=== PATIENT | female | born 1960 | race Caucasian/White ===

== ENCOUNTER 2024-04-18 14:09 | Outpatient (OUT) | payer MEDICARE, MEDICAID, SELFPAY ==
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
== END 2024-04-18 14:10 | disposition home or self-care (01) ==
PROVIDERS: Visit Provider Nurse Practitioner
DX: M47.812 Spondylosis without myelopathy or radiculopathy, cervical region (principal); M47.814 Spondylosis without myelopathy or radiculopathy, thoracic region; M54.12 Radiculopathy, cervical region
CPT/HCPCS: 72050; 72070; G0463

== ENCOUNTER 2024-04-18 15:14 | Outpatient (OUT) | payer MEDICARE, MEDICAID, SELFPAY ==
--- NOTE | 2024-04-18 15:32 | XR_ITS ---
[facility] [place] [id number] Patient Name: MARILIA ABRAHAM MRN: [id number] date: 1960 Sex: F Assigned Patient Location: [facility] Current Patient Location: [facility] Accession/Order Number: [id number] Exam Date: 04/18/2024 23:09 Report Date: 04/18/2024 23:11 At the request of: INGE SOTO NP Procedure: XR cervical spine 5V THORACIC SPINE - - 3 views, cervical spine 5 views CLINICAL HISTORY: CERVICAL AND THORACIC SPONDYLOSIS COMPARISON: None FINDINGS: Thoracic spine: Vertebral body heights appear maintained. Scattered endplate degenerative changes. Pedicles appear intact. Cervical spine: No fracture. Vertebral body heights appear maintained. No significant disc space narrowing. Facet joint degenerative changes. No prevertebral soft tissue swelling. XR/XR cervical spine 5V IMPRESSION: THORACIC SPINE DEMONSTRATES DEGENERATIVE CHANGES WITHOUT ACUTE BONY PROCESS. CERVICAL SPINE DEMONSTRATES PROMINENT FACET JOINT DEGENERATIVE CHANGES WITHOUT SIGNIFICANT DISC LOSS. Impression dictated by: Ortega Rosales Jr., D.O.04/18/2024 11:11 PM Dictation Location: [place] [address] Electronically authenticated by: [id number] Y Date: 04/18/2024 23:11
--- NOTE | 2024-04-18 15:32 | XR_ITS ---
[facility] [place] [id number] Patient Name: MARILIA ABRAHAM MRN: [id number] date: 1960 Sex: F Assigned Patient Location: [facility] Current Patient Location: [facility] Accession/Order Number: [id number] Exam Date: 04/18/2024 23:09 Report Date: 04/18/2024 23:11 At the request of: INGE SOTO NP Procedure: XR cervical spine 5V THORACIC SPINE - - 3 views, cervical spine 5 views CLINICAL HISTORY: CERVICAL AND THORACIC SPONDYLOSIS COMPARISON: None FINDINGS: Thoracic spine: Vertebral body heights appear maintained. Scattered endplate degenerative changes. Pedicles appear intact. Cervical spine: No fracture. Vertebral body heights appear maintained. No significant disc space narrowing. Facet joint degenerative changes. No prevertebral soft tissue swelling. XR/XR thoracic spine 2V IMPRESSION: THORACIC SPINE DEMONSTRATES DEGENERATIVE CHANGES WITHOUT ACUTE BONY PROCESS. CERVICAL SPINE DEMONSTRATES PROMINENT FACET JOINT DEGENERATIVE CHANGES WITHOUT SIGNIFICANT DISC LOSS. Impression dictated by: Ortega Rosales Jr., D.O.04/18/2024 11:11 PM Dictation Location: [place] [address] Electronically authenticated by: [id number] Y Date: 04/18/2024 23:11
== END 2024-04-18 15:15 | disposition home or self-care (01) ==
LOC: RAD 15:16
PROVIDERS: Visit Provider Nurse Practitioner
DX: M47.812 Spondylosis without myelopathy or radiculopathy, cervical region (principal); M47.814 Spondylosis without myelopathy or radiculopathy, thoracic region
CPT/HCPCS: 72050; 72070

== ENCOUNTER 2024-04-26 12:52 | Outpatient (OUT) | payer MEDICARE, MEDICAID, SELFPAY ==
--- NOTE | 2024-04-26 12:54 | MR_ITS ---
[address] [address] Patient Name: MARILIA ABRAHAM MRN: [id number] date: 1960 Sex: F Assigned Patient Location: MRI Current Patient Location: MRI Accession/Order Number: [id number] Exam Date: 04/26/2024 15:46 Report Date: 04/26/2024 15:57 At the request of: INGE SOTO NP Procedure: MR cervical spine wo con MRI Cervical Spine without contrast TECHNIQUE: Multiplanar T1 and T2-weighted imaging of the cervical spine obtained. HISTORY: Chronic cervical neck pain. Minimal radiculopathy. Pain and 20+ years. No injury. COMPARISON: plain film 04/18/2024 BONY ALIGNMENT: Adequate BONY LESION: None CERVICAL CORD: No significant demyelination. SKULL BASE: unremarkable. PREVERTEBRAL SOFT TISSUES: Unremarkable NASOPHARYNGEAL REGION: unremarkable. VERTEBRAL ARTERIES: unremarkable. POSTSURGICAL CHANGES: None CERVICAL SOFT TISSUES: Unremarkable C1-2 LEVEL: Unremarkable C2-3: Unremarkable C3-4: Mild anterolisthesis. Mild spondylosis. Patent central canal and neural foramen C4-5: Mild spondylosis. Diffuse disc bulge. Patent central canal. Mild bilateral neural foraminal narrowing. C5-6: Mild spondylosis. Diffuse disc bulge. Patent central canal. Mild bilateral neural foraminal narrowing. C6-7: Mild spondylosis. Diffuse disc bulge. Patent central canal and neural foramen. C7-T1: Mild spondylosis. No disc herniation. Patent central canal. Mild left neural foraminal narrowing. Left facet degeneration with bone marrow edema and soft tissue edema. Patent right neural foramen MR/MR cervical spine wo con IMPRESSION: Mild multilevel discovertebral degenerative changes. Patent central canal. Left C7-T1 facet disease. Reactive bone marrow edema soft tissues edema. Impression dictated by: Tariq Gonzalez M.D.04/26/2024 3:57 PM Dictation Location: [place] Electronically authenticated by: [id number] Y Date: 04/26/2024 15:57
== END 2024-04-26 12:53 | disposition home or self-care (01) ==
LOC: MRI 12:52
PROVIDERS: Visit Provider Nurse Practitioner
DX: M54.12 Radiculopathy, cervical region (principal); M47.812 Spondylosis without myelopathy or radiculopathy, cervical region; M50.30 Other cervical disc degeneration, unspecified cervical region
CPT/HCPCS: 72141

== ENCOUNTER 2024-07-01 14:43 | Outpatient (OUT) | payer MEDICARE, MEDICAID, SELFPAY ==
--- NOTE | 2024-07-01 15:46 | PM.CN ---
Consult Note: HPI Data of Consult Patient: known to practice within the last 3 years Consult date: 07/01/24 Requesting Physician: Alexander Mayers MD Primary Care Provider: Non-Staff Physician, Consult Narrative Reason for consult: neck pain Narrative: 63yof who presents for assessment. persistence of pain in neck, bilateral shoulder area. 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 previously has cervical rfa, with good benefit of >50% for >3 months. last done about 10 years ago. continues in a series of provider directed home exercises >6 weeks, without lasting benefit. used gabapentin, which provided some benefit. cc:: CC: Alexander Mayers MD Review of Systems ROS Status of ROS 10 or more systems reviewed and unremarkable except as noted in history and below Meds Home Medications and Allergies Home Medications ?Medication ?Instructions ?Recorded ?Confirmed ?Type cyclobenzaprine 10 mg tablet 10 mg PO .HS 04/18/24 04/18/24 History ibuprofen 600 mg tablet (IBU) 600 mg PO TID PRN pain 04/18/24 04/18/24 History Allergies Allergy/AdvReac Type Severity Reaction Status Date / Time Sulfa (Sulfonamide Allergy Mild Unknown Verified 04/18/24 15:40 Antibiotics) Exam Narrative Exam Narrative: Psych-alert and oriented x 3.? Attentive and appropriate, constitutionally normal, displays normal mood and affect per situation.? There are no obvious deficits in memory, reasoning, or intellect.? Skin-no obvious rashes, bruising, or erythema noted to the patient's area of pain. Extremities-upper extremities are warm with minimal edema and palpable pulses. Cervical- tenderness to palpation noted in the cervical spine and paraspinal musculature.? Pain is elicited with extension, and lateral rotation of the cervical spine.? Range of motion is slightly diminished due to pain. Facet loading maneuvers are positive bilaterally.? Coordination remains intact.? Gait remains non-antalgic. Assessment and Plan Assessment and Plan (1) Cervical spondylosis: Plan 63yof who presents for assessment. failed conservative measures, as noted. imaging reviewed, as noted. given symptoms and imaging, prudent to attempt diagnostic bilateral c5-6, 6-7 medial branch blocks with intention of proceeding to radiofrequency ablation. she is in agreement. meds reviewed, will trial gabapentin 400mg qid. follow up after procedure.
== END 2024-07-01 14:44 | disposition home or self-care (01) ==
PROVIDERS: Visit Provider Anesthesiology
DX: M47.812 Spondylosis without myelopathy or radiculopathy, cervical region (principal)
CPT/HCPCS: G0463

== ENCOUNTER 2024-07-15 11:48 | Day surgery (SDC) | payer MEDICARE, MEDICAID, SELFPAY ==
--- OUTSIDE RECORDS SUMMARY | 2024-05-27 09:45 | XMS_ITS ---
Author Organization [facility] vices Address [address] [place], [place] [id number] Care Team Providers Care Sign Board Erector Name Role Phone Mere Monteiro Primary Care Provider [phone] REASON FOR VISIT NC d/c 05/23 [place] - Heart Attack Social History Sex Assigned At : Social History Observation Description Sex Assigned At Female Encounters Encounter Location Date Provider Diagnosis Main [address] [place] [id number] 05/27/2024 Mere Monteiro Plan Of Treatment Next Appt Details Provider Name:Mere Monteiro, 08/05/2024 02:00:00 PM, [address] [place], [place], [id number], Provider Name:Mere Monteiro, 12/26/2024 02:30:00 PM, [address] [place], [place], [id number], Progress Notes * Alie AJ LDOB: 1960 (63 yo F)Acc No.[id number]:05/27/2024 Medical Note Patient: Shira Alie KURTZ Provider: Danny Monteiro MD :1960 A ge:63 Y S ex:Female Date:05/27/2024 Address:[address] [place] [address], [address], [place], [id number] Subjective: * Chief Complaints: * 1 . [place] d/c 05/23 [place] - Heart Attack. * Medical History: Objective: * Vitals: Assessment: Plan: * Treatment: * Billing Information: * Visit Code: * Procedure Codes: * Electronic signature of Pema Monteiro MD on 07/15/2024 at 11:51 AM EDT Sign off status: Pending * Provider: Danny Monteiro MD Date: 0 05/27/2024 Generated for Ivy lam/Trae/Moreitting on: 0 07/15/2024 11:51 AM EDT
--- OUTSIDE RECORDS SUMMARY | 2024-07-15 11:51 | XMS_ITS | Encounter Summary ---
Author Organization [employer] Address [id number] [address] [place] [address] Care Team Providers Care Technical Solutions Engineer Name Role Phone Services, [facility] Primary Care Provider Reason for Visit * Reason Comments Med Refill Encounter Details Date Type Department Care Team ([facility] Contact Info) Description 07/15/2021 Refill [facility] [address] [place] [address] Igor Holliday MD [address] [facility]. Provider retired 05/14/24 [place], [place] [id number] Social History Tobacco Use Types Packs/Day Years Used Date Smoking Tobacco: Every Day Cigarettes Smokeless Tobacco: Never Alcohol Use Standard Drinks/Week Comments Not Currently 0 (1 standard drink = 0.6 oz pur e alcohol) AUDIT-C Answer Date Recorded Frequency of Alcohol Consumption Never 11/21/2017 Average Number of Drinks Not on file 018 Frequency of Binge Drinking Not on file 10/2017 PHQ-2 Answer Date Recorded Total Score 3 11/03/2020 Childcare Answer Date Recorded Childcare Unknown 07/20/2018 Employment Answer Date Recorded Employment Unknown 07/20/2018 Purpose - Life Answer Date Recorded Purpose and direction in life Unknown Comments No Sex and Gender Information Value Date Recorded Sex Assigned at Not on file Legal Sex Female 9:44 PM EDT Gender Identity Not on file Sexual Orientation Not on file COVID-19 Exposure Response Date Recorded In the last 10 days, have yo u been in contact with someone who was confirmed or suspected to have Coronavirus/COVID-19? No / Unsure 07/05/2021 8:03 PM EDT documented as of this encounter Plan of Treatment Upcoming Encounters Date Type Department Care Team (Late st Contact Info) Description 10/07/2024 3:15 PM EDT Office Visit [facility] [address] [place] [address] Julianna Hdez MD [address] [place] [address] documented as of this encounter Visit Diagnoses Not on filedocumented in this encounter Additional Health Concerns Assessment Noted Time PHQ-9 Depression Total Score: 3 11/04/19 21 2:00 PM EDT A Body Mass Index follow-up plan has been documented for the patient 06/18/2020 4:09 PM EDT documented as of this encounter Care Teams Technical Solutions Engineer Relationship Specialty Start Date End Date Services, [facility] [address] [place], [place] PCP - General Family Medicine 05/07/24 documented as of this encounter
--- OUTSIDE RECORDS SUMMARY | 2024-07-15 11:51 | XMS_ITS | Encounter Summary ---
Author Organization [employer] Address [id number] [address] [place] [address] Care Team Providers Care Parts Professional Name Role Phone Services, [facility] Primary Care Provider Reason for Visit * Reason Comments Med Refill Encounter Details Date Type Department Care Team ([facility] Contact Info) Description 09/12/2021 Refill [facility] [address] [place] [address] Igor Holliday MD [address]. Provider retired 05/14/24 [place], [place] [id number] Social History Tobacco Use Types Packs/Day Years [...] on file Sexual Orientation Not on file documented as of this encounter Plan of Treatment Upcoming Encounters Date Type Department Care Team ([facility] Contact Info) Description 10/07/2024 3:15 PM EDT Office Visit [facility] [address] [place] [address] Julianna Hdez MD [address] [place] [address] documented as of this encounter Visit Diagnoses Not on filedocumented in this encounter Additional Health Concerns Assessment Noted Time PHQ-9 Depression Total Score: 3 11/04/19 21 2:00 PM EDT A Body Mass Index follow-up plan has been documented for the patient 06/18/2020 4:09 PM EDT documented as of this encounter Care Teams Parts Professional Relationship Specialty Start Date End Date Services, [facility] [address] [place], [place] PCP - General Family Medicine 05/07/24 documented as of this encounter
--- OUTSIDE RECORDS SUMMARY | 2024-07-15 11:51 | XMS_ITS | Encounter Summary ---
Author Organization [email or web address] Address [id number] [address] [place] [address] Care Team Providers Care Metal Fitters And Machinists Name Role Phone Services, [facility] Primary Care Provider Encounter Details Date Type Department Care Team ([facility] Contact Info) Description 03/04/2021 Orders Only [facility] [address] [place] [address] Beatriz Ash, PETROGRAPHY TEACHER-OPERATIONS INTELLIGENCE [address] [place], [place] [id number] Social History Tobacco Use Types Packs/Day Years [...] Exposure Response Date Recorded In the last month, have you been in contact with someone who was confirmed or suspected to have Coronavirus / COVID-19? No / Unsure 02/23/2021 1:53 PM EST documented as of this encounter Plan of Treatment Upcoming Encounters Date Type Department Care Team (Late st Contact Info) Description 10/07/2024 3:15 PM EDT Office Visit [facility] [address] [place] [address] Julianna Hdez MD [address] [place] [address] documented as of this encounter Visit Diagnoses Not on filedocumented in this encounter Additional Health Concerns Assessment Noted Time PHQ-9 Depression Total Score: 3 11/04/19 21 2:00 PM EDT A Body Mass Index follow-up plan has been documented for the patient 06/18/2020 4:09 PM EDT documented as of this encounter Care Teams Metal Fitters And Machinists Relationship Specialty Start Date End Date Services, [facility] [address] [place], [place] PCP - General Family Medicine 05/07/24 documented as of this encounter
--- OUTSIDE RECORDS SUMMARY | 2024-07-15 11:51 | XMS_ITS | Encounter Summary ---
Author Organization [employer] [facility] tem Address [id number] [address] [place] [address] Care Team Providers Care Holistic Pulser Name Role Phone Services, [facility] Primary Care Provider Reason for Visit * Reason Comments Med Refill Encounter Details Date Type Department Care Team ([facility] st Contact Info) Description 10/16/2021 Refill [facility] [address] [place] [address] Mao San PA [address] [place], [place] [id number] Spondylosis of cervical region without myelopathy or radiculopathy Social History Tobacco Use Types Packs/Day Years [...] or suspected to have Coronavirus / COVID-19? Unable to assess 10/06/2021 11:51 AM EDT documented as of this encounter Miscellaneous Notes * Telephone Encounter - Naida Bahena RN - 10/16/2021 5:03 AM EDT Our clinic does not accept pharmacy refill requests. The patient must contact our office. [phone] * Telephone Encounter - Terra Rodriguez RN - 10/16/2021 5:03 AM EDT Patient left message yesterday regarding prescription. Call returned to patient to clarify. Patientstates she would like refill of Gabapentin and she would like it sent to [facility]. Upon review of chart patient, order for Gabapentin was signed on 11/11/2021. Per [facility] patient last filled 09/16/2021. Call placed to [facility] to see if there was an issue with the previously e-scribed order. Comb Setter spoke with Dionic[employer] ([facility]) he confirms patient's last fill was 09/16/2021. Dionicio runs script throughinsurance to see if there was an insurance issue. He confirms that there is no issue and apologizesfor the delay. He states that he will prepare script for patient to production supervisor today. Call placed to patient to inform her of conversation with [facility]. She verbalized understanding. documented in this encounter Plan of Treatment Upcoming Encounters Date Type Department Care Team (Late st Contact Info) Description 10/07/2024 3:15 PM EDT Office Visit [facility] [address] [place] [id number] Julianna Hdez MD [address] [place] [address] documented as of this encounter Visit Diagnoses Diagnosis Spondylosis of cervical region without myelopathy or radiculopathy documented in this encounter Additional Health Concerns Assessment Noted Time PHQ-9 Depression Total Score: 3 09/21/20 21 2:00 PM EDT A Body Mass Index follow-up plan has been documented for the patient 06/18/2020 4:09 PM EDT documented as of this encounter Care Teams Holistic Pulser Relationship Specialty Start Date End Date Services, [facility] [address] [place], [place] PCP - General Family Medicine 05/07/24 documented as of this encounter
--- OUTSIDE RECORDS SUMMARY | 2024-07-15 11:51 | XMS_ITS | Encounter Summary ---
Author Organization [employer] tem Address [facility] [id number] [address] [place] [address] Care Team Providers Care Counter Clerk [employer] Name Role Phone Services, [facility] Primary Care Provider Reason for Visit * Reason Comments Med Refill Encounter Details Date Type Department Care Team ([facility] Contact Info) Description 09/09/2020 Refill [facility] [address] [place] [address] Igor Holliday MD [address] Provider retired 05/14/24 [place], [place] [id number] Social History Tobacco Use Types Packs/Day Years [...] 10/2017 PHQ-2 Answer Date Recorded Total Score 0 06/18/2020 Childcare Answer Date Recorded Childcare Unknown 07/20/2018 [...] Upcoming Encounters Date Type Department Care Team ([facility] Contact Info) Description 10/07/2024 3:15 PM EDT Office Visit [facility] [address] [place] [address] Julianna Hdez MD [address] [place] [address] documented as of this encounter Visit Diagnoses Not on filedocumented in this encounter Additional Health Concerns Assessment Noted Time PHQ-9 Depression Total Score: 0 06/19/19 21 3:00 PM EDT A Body Mass Index follow-up plan has been documented for the patient 06/18/2020 4:09 PM EDT documented as of this encounter Care Teams Counter Clerk [employer] Relationship Specialty Start Date End Date Services, [facility] [address] [place], [place] PCP - General Family Medicine 05/07/24 documented as of this encounter
--- OUTSIDE RECORDS SUMMARY | 2024-07-15 11:51 | XMS_ITS | Encounter Summary ---
Author Organization [employer] Address [facility] [id number] [address] 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 [address] [place], [place] [phone] Social History Tobacco Use Types Packs/Day Years Used Date Smoking Tobacco: Every Day Cigarettes Smokeless Tobacco: Never Alcohol Use Standard Drinks/Week Comments Not Currently 0 (1 standard drink = 0.6 oz pur e alcohol) AUDIT-C Answer Date Recorded Frequency of Alcohol Consumption Never 11/21/2017 Average Number of Drinks Not on file 018 Frequency of Binge Drinking Not on file 1010/2017 PHQ-2 Answer Date Recorded Total Score 3 [...] [address] [place] [phone] Julianna Hdez MD [address] [place] [address] documented as of this encounter Visit Diagnoses Not on filedocumented in this encounter Additional Health Concerns Assessment Noted Time PHQ-9 Depression Total Score: 3 11/04/19 21 2:00 PM EDT A Body Mass Index follow-up plan has been documented for the patient 06/18/2020 4:09 PM EDT documented as of this encounter Care Teams Power Electronics Engineer Relationship Specialty Start Date End Date Services, [facility] [address] [place] PCP - General Family Medicine 05/07/24 documented as of this encounter
--- OUTSIDE RECORDS SUMMARY | 2024-07-15 11:51 | XMS_ITS | Clinical Summary ---
Author Organization H.[facility]OOM[facility] tem Address [id number] [address] [place] [address] Care Team Providers Care Technical Instructor Name Role Phone Services, [facility] Primary Care Provider Allergies Active Allergy Reactions Criticality Noted Date Comments Sulfa (Sulfonamide Antibiotics) Itching,Rash Medium Medications gabapentin (NEURONTIN) 300 mg capsule Take 1 capsule (300 mg total) by mouth in the morning and 1 capsule (300 mg total) at noon and 1 capsule (300 mg total) in the evening and 1 capsule (300 mg total) before bedtime. Active busPIRone (BUSPAR) 10 mg tablet Take 1 tablet (10 mg total) by mouth in the morning and 1 tablet (10 mg total) before bedtime. 05/19/19 25 Active DULoxetine (CYMBALTA) 60 mg capsule Take 1 capsule (60 mg total) by mouth in the morning. 05/19/19 25 Active folic acid (FOLVITE) 1 mg tablet Take 1 tablet (1 mg total) by mouth in the morning. 05/19/19 25 Active sennosides-docu sate sodium (SENOKOT-S) 8.6-50 mg Take 2 tablets by mouth 2 (two) times a day as needed for constipation. 05/19/19 25 Active thiamine HCl (VITAMIN B-1) 100 mg tablet Take 1 tablet (100 mg total) by mouth in the morning. 05/19/19 25 Active prasugreL HCl (EFFIENT) 10 mg tablet Take 1 tablet (10 mg total) by mouth in the morning. 90 tablet 3 06/18/19 25 Active aspirin 81 mg chewable tablet Chew 1 tablet (81 mg total) and swallow in the morning for 360 days. 90 tablet 3 06/18/19 25 026 Active atorvastatin (LIPITOR) 80 mg tablet Take 1 tablet (80 mg total) by mouth nightly. 90 tablet 3 06/18/19 Active dapagliflozin propanediol (FARXIGA) 10 mg tablet Take 1 tablet (10 mg total) by mouth in the morning for 360 days. 90 tablet 3 06/18/19 25 026 Active spironolactone (ALDACTONE) 25 mg tablet Take 1 tablet (25 mg total) by mouth in the morning. 90 tablet 3 06/18/19 25 Active valsartan (DIOVAN) 40 mg tablet Take 1 tablet (40 mg total) by mouth in the morning and 1 tablet (40 mg total) before bedtime. 90 tablet 3 06/18/19 25 Active metoprolol succinate XL (TOPROL XL) 25 mg 24 hr tabletIndicatio ns:Chronic systolic heart failure (CMS-HCC) Take 0.5 tablets (12.5 mg total) by mouth in the morning. 45 tablet 3 06/18/19 Active nicotine polacrilex (NICORETTE) 4 MG gumIndications: Continuous tobacco abuse Chew 1 each (4 mg total) as directed as needed for smoking cessation. As recommended on Nicorette gum label, weeks 1-6 1 piece every 1-2 hours, week 7-9 1 piece every 2-4 hours, weeks 10-12 1 piece every 4-8 hours. Do not use nicotine gum simultaneously with other tobacco product 100 each 3 06/18/19 Active atorvastatin (LIPITOR) 80 mg tablet Take 1 tablet (80 mg total) by mouth nightly. 05/19/19 025 Discontin ued(Reord er) aspirin 81 mg chewable tablet Chew 1 tablet (81 mg total) and swallow in the morning for 90 days. 05/19/19 025 Discontin ued(Reord er) dapagliflozin propanediol (FARXIGA) 10 mg tablet Take 1 tablet (10 mg total) by mouth in the morning for 90 days. 05/19/19 025 Discontin ued(Reord er) metoprolol succinate XL (TOPROL XL) 25 mg 24 hr tablet Take 0.5 tablets (12.5 mg total) by mouth in the morning. 05/19/19 25 025 Discontin ued(Reord er) prasugreL HCl (EFFIENT) 10 mg tablet Take 1 tablet (10 mg total) by mouth in the morning. 05/19/19 25 025 Discontin ued(Reord er) valsartan (DIOVAN) 40 mg tablet Take 1 tablet (40 mg total) by mouth in the morning and 1 tablet (40 mg total) before bedtime. 05/19/19 25 025 Discontin ued(Reord er) spironolactone (ALDACTONE) 25 mg tablet Take 1 tablet (25 mg total) by mouth in the morning. 05/19/19 025 Discontin ued(Reord er) benzonatate (TESSALON PERLES) 100 mg capsule Take 1 capsule (100 mg total) by mouth 3 (three) times a day as needed for cough. 05/19/19 025 Discontin ued(Thera py completed ) Active Problems Problem Noted Date Diagnosed Date Chronic systolic heart failure 06/17/2024 Mixed hyperlipidemia 05/11/2024 CHB (complete heart block) 05/07/2024 ST elevation myocardial infarction (STEMI) 05/07 Coronary artery disease invo lving [place] coronary artery of [place] heart 05/07/2024 Osteoarthritis of cervical spine 03/14/2018 Overview (03/14/2018): Added automatically from request for surgery [id number] Cervical spondylosis without myelopathy 11/04/19 18 HTN (hypertension) Encounters Date Type Department Care Team Description 06/17/2024 3:00 PM EDT Ancillary Procedure [facility] [address] [place] [phone] Teagan Carrillo PA-C Complete heart block ([facility]) 06/17/2024 2:00 PM EDT Office Visit [facility] [address] [place] [phone] Teagan Carrillo PA-C Coronary artery disease involving [place] coronary artery of [place] heart without angina pectoris (Primary Dx); Hypertension, unspecified type; Mixed hyperlipidemia; Chronic systolic heart failure (CMS-HCC); Complete heart block (CMS-HCC); Continuous tobacco abuse 06/17/2024 Telephone [facility] [address] [place] [address] Monica Sharif, RN Life Vest issue 06/17/2024 Travel 06/14/2024 Telephone [facility] [address] [place] [address] Juana Eden, [facility] 05/30/2024 Abstract [facility] [address] [place] [phone] External, Scanning Provider 05/21/2024 Telephone [facility], A Department of [facility] [address] [place] [phone] Kristen Lainez New Patient 05/09/2024 3:38 PM EDT - 05/09/2024 4:38 PM EDT Surgery [facility] - Cardiac Cath [address] [place] [address] Gilberto Zepeda MD Percutaneous coronary intervention of 05/08/2024 Telephone [facility] [address] [place] [phone] Gilberto Zepeda MD s/p CATH/PCI 05/07/2024 5:00 PM EDT - 05/07/2024 6:00 PM EDT Surgery [facility] - Cardiac Cath [address] [place] [address] Gilberto Zepeda MD Percutaneous coronary intervention 05/07/2024 3:54 PM EDT - 05/18/2024 7:38 PM EDT Hospital Encounter [facility] - [facility] [address] Acute [address] [place] [address] Maya Zavala MD Oostra, MD Grayson Alvarez, MD Maria Del Rosario Miranda Venu Gopala R, MD Pillai, Viviana M, MD ST elevation myocardial infarction involving left anterior descending (LAD) coronary artery ([facility]) (Primary Dx); ST elevation myocardial infarction (STEMI), unspecified artery (CMS-HCC); CHB (complete heart block) ([facility]); Coronary artery disease involving [place] coronary artery of [place] heart, unspecified whether angina present; Altered mental status, unspecified altered mental status type Discharge Disposition: Detention Facility-Medicare [facility] 05/07/2024 1:45 PM EDT - 05/07/2024 3:27 PM EDT Emergency [facility] - Emergency [address] [place] [phone] Gretchen Fraser MD Complete heart block ([facility]) (Primary Dx); Syncope, unspecified syncope type; Fall, initial encounter Discharge Disposition: [facility] 05/07/2024 Telephone [facility] [address] [place] [address] Shaniqua Montoya Order clarification 05/07/2024 Travel from Last 3 Months Immunizations Immunization Administration Dates Next Due Tdap 02/03/2020 Family History Medical History Relation Name Comments Heart disease Father Heart disease Mother Heart disease Son Relation Name Status Comments Father Mother Alive Son Social History Tobacco Use Types Packs/Day Years Used Date Smoking Tobacco: Every Day Cigarettes Smokeless Tobacco: Never Comments:Patient states she drinks a lot. Alcohol Use Standard Drinks/Week Comments Yes 0 (1 standard drink = 0.6 oz pur e alcohol) [facility] Utilities Answer Date Recorded In the past 12 months has Setup, oil, or water Vyykn threatened to shut off services in your home? Patient unable to answer 05/08/2024 AUDIT-C Answer Date Recorded Frequency of Alcohol Consumption Never 11/21/2017 Average Number of Drinks Not on file 018 Frequency of Binge Drinking Not on file 10/2017 PHQ-2 Answer Date Recorded Total Score 3 11/11/2021 PRAPARE - Transportation Answer Date Re corded In the past 12 months, has l ack of transportation kept you from medical appointments or from getting medications? Patient unable to answer 05/08/2024 In the past 12 months, has l ack of transportation kept you from meetings, work, or from getting things needed for daily living? Patient unable to answer 05/08/2024 Housing Instability Answer Date Recorde d Are you worried or concerned that in the next two months you may not have stable housing that you own, rent or stay in as a part of a household? Patient unable to answer 05/08/2024 Childcare Answer Date Recorded Childcare Unknown 07/20/2018 Employment Answer Date Recorded Employment Unknown 07/20/2018 Hunger Screening Answer Date Recorded Within the past 12 months we worried whether our food would run out before we got money to buy more. Never True 06/17/2024 Within the past 12 months th e food we bought just didn't last and we didn't have money to get more. Never True 06/17/2024 Purpose - Life Answer Date Recorded Purpose and direction in life Unknown Comments No Sex and Gender Information Value Date Recorded Sex Assigned at Not on file Legal Sex Female 9:44 PM EDT Gender Identity Not on file Sexual Orientation Not on file Last Filed Vital Signs Vital Sign Reading Time Taken Comments Blood Pressure 92/50 06/17/2024 2:00 PM EDT Pulse 80 06/17/2024 2:00 PM EDT Temperature 36.7 C (98 F) 05/18/2024 11:30 AM EDT Respiratory Rate 16 05/18/2024 11:30 AM EDT Oxygen Saturation 97% 05/18/2024 11:30 AM EDT Inhaled Oxygen Concentration - - Weight 46.7 kg (103 lb) 06/17/2024 2:00 PM EDT Height 152.4 cm (5') 06/17/2024 2:00 PM EDT Body Mass Index 20.12 06/17/2024 2:00 PM EDT Plan of Treatment Upcoming Encounters Date Type Department Care Team (Late st Contact Info) Description 10/07/2024 3:15 PM EDT Office Visit [facility] [address] [place] [address] Julianna Hdez MD [address] [place] [address] Health Maintenance Due Date Last Done Comments Tobacco Counseling 1962 Pap Smear 09/24/1983 Mammogram 2002 Zoster (Shingles) Vaccine (1 of 2) 2012 Depression Screening 11/11/2022 11/11/2021 Influenza Vaccine 10/14/2024 Tobacco Screening 05/07/2025 05/07/2024 Adult BMI Screening 06/17/2025 06/17/2024 DTaP,Tdap and Td Vaccines (2 - Td or Tdap) 02/02/2030 02/03/2020 Goals Goal Patient Goal Type Associated Problems Recent Progress Patient-Stated? Author <enter goal here> General Yes Viji Pham, RN Note: Evaluation of progress towards goal: Patient plans for a safe discharge. Medical Devices Implanted Type Area Aerospace Stress Engineer Device Identifier Shelf Expiration Date Model / Serial / Lot System Cor Stnt 2.75mm X 48mm 144cm Synergy Xd Mnrl Sean Pltn - [id number] Implanted:Qty : 1 on 05/07/2024 by Gilberto Zepeda MD at [facility] Stent N/A: Arterial [employer] [id number] 09/25/2025 [id number] / / [id number] System Cor Stnt 2.25mm X 15mm 145cm Xience Skypnt Mtlnk Sean - [id number] Implanted:Qty : 1 on 05/09/2024 by Gilberto Zepeda MD at [facility] Stent N/A: Arterial KINNEY [id number] 02/26/2026 [id number] / / [id number] Procedures Procedure Name Priority Date/Time Associated Diagnosis Comments IONIZED CALCIUM Routine 05/18/2024 5:19 AM EDT PHOSPHORUS Routine 05/18/2024 5:19 AM EDT MAGNESIUM Routine 05/18/2024 5:19 AM EDT BASIC METABOLIC PANEL Routine 05/18/2024 5:19 AM EDT IONIZED CALCIUM Routine 05/17/2024 3:45 AM EDT PHOSPHORUS Routine 05/17/2024 3:45 AM EDT MAGNESIUM Routine 05/17/2024 3:45 AM EDT COMPREHENSIVE METABOLIC PANEL Routine 05/17/2024 3:45 AM EDT CBC (NO DIFF) Routine 05/17/2024 3:45 AM EDT IONIZED CALCIUM Routine 05/16/2024 3:57 AM EDT PHOSPHORUS Routine 05/16/2024 3:57 AM EDT MAGNESIUM Routine 05/16/2024 3:57 AM EDT COMPREHENSIVE METABOLIC PANEL Routine 05/16/2024 3:57 AM EDT CBC (NO DIFF) Routine 05/16/2024 3:57 AM EDT IONIZED CALCIUM Routine 05/15/2024 5:26 AM EDT PHOSPHORUS Routine 05/15/2024 5:26 AM EDT MAGNESIUM Routine 05/15/2024 5:26 AM EDT COMPREHENSIVE METABOLIC PANEL Routine 05/15/2024 5:26 AM EDT CBC (NO DIFF) Routine 05/15/2024 5:26 AM EDT BEDSIDE GLUCOSE Routine 05/14/2024 9:10 AM EDT IONIZED CALCIUM Routine 05/14/2024 4:04 AM EDT PHOSPHORUS Routine 05/14/2024 4:04 AM EDT MAGNESIUM Routine 05/14/2024 4:04 AM EDT COMPREHENSIVE METABOLIC PANEL Routine 05/14/2024 4:04 AM EDT CBC (NO DIFF) Routine 05/14/2024 4:04 AM EDT ELECTROLYTE PANEL Routine 05/13/2024 12: 54 PM EDT IONIZED CALCIUM Routine 05/13/2024 5:27 AM EDT PHOSPHORUS Routine 05/13/2024 5:27 AM EDT MAGNESIUM Routine 05/13/2024 5:27 AM EDT COMPREHENSIVE METABOLIC PANEL Routine 05/13/2024 5:27 AM EDT CBC (NO DIFF) Routine 05/13/2024 5:27 AM EDT ELECTROLYTE PANEL Routine 05/12/2024 9:2 6 PM EDT MAGNESIUM Add-On 05/12/2024 1:07 PM EDT ELECTROLYTE PANEL Routine 05/12/2024 1:0 7 PM EDT IONIZED CALCIUM Routine 05/12/2024 5:52 AM EDT PHOSPHORUS Routine 05/12/2024 5:52 AM EDT MAGNESIUM Routine 05/12/2024 5:52 AM EDT COMPREHENSIVE METABOLIC PANEL Routine 05/12/2024 5:52 AM EDT CBC (NO DIFF) Routine 05/12/2024 5:52 AM EDT ELECTROLYTE PANEL Routine 05/11/2024 10: 40 PM EDT ELECTROLYTE PANEL Routine 05/11/2024 12: 49 PM EDT IONIZED CALCIUM Routine 05/11/2024 5:57 AM EDT PHOSPHORUS Routine 05/11/2024 5:57 AM EDT MAGNESIUM Routine 05/11/2024 5:57 AM EDT COMPREHENSIVE METABOLIC PANEL Routine 05/11/2024 5:57 AM EDT CBC (NO DIFF) Routine 05/11/2024 5:57 AM EDT ELECTROLYTE PANEL Routine 05/10/2024 8:3 7 PM EDT VITAMIN B12 Routine 05/10/2024 2:35 PM EDT FOLATE Routine 05/10/2024 2:35 PM EDT THIAMIN (VITAMIN B1), WB Routine 05/10/2024 2:35 PM EDT EEG Routine 05/10/2024 1:30 PM EDT ELECTROLYTE PANEL Add-On 05/10/2024 11: 01 AM EDT FOLATE Routine 05/10/2024 11:01 AM EDT THIAMIN (VITAMIN B1), WB Routine 05/10/2024 11:01 AM EDT IONIZED MAGNESIUM Routine 05/10/2024 11: 01 AM EDT ECHO LIMITED WITHOUT CONTRAST Routine 05/10/2024 10:32 AM EDT ELECTROLYTE PANEL Routine 05/10/2024 8:2 9 AM EDT IONIZED CALCIUM Routine 05/10/2024 3:03 AM EDT PHOSPHORUS Routine 05/10/2024 3:03 AM EDT MAGNESIUM Routine 05/10/2024 3:03 AM EDT COMPREHENSIVE METABOLIC PANEL Routine 05/10/2024 3:03 AM EDT CBC (NO DIFF) Routine 05/10/2024 3:03 AM EDT IONIZED CALCIUM Routine 05/10/2024 12:07 AM EDT ELECTROLYTE PANEL Routine 05/10/2024 12: 07 AM EDT ELECTROLYTE PANEL Routine 05/09/2024 7:1 4 PM EDT RESPIRATORY CARE EDUCATION Routine 05/09/2024 5:44 PM EDT CARDIAC INVASIVE Routine 05/09/2024 4:18 PM EDT Coronary artery disease involving [place] coronary artery of [place] heart, unspecified whether angina present CARDIAC INVASIVE Routine 05/09/2024 4:18 PM EDT Coronary artery disease involving [place] coronary artery of [place] heart, unspecified whether angina present CARDIAC INVASIVE Routine 05/09/2024 4:18 PM EDT Coronary artery disease involving [place] coronary artery of [place] heart, unspecified whether angina present IONIZED MAGNESIUM Routine 05/09/2024 12: 49 PM EDT IONIZED CALCIUM Routine 05/09/2024 12:49 PM EDT ELECTROLYTE PANEL Routine 05/09/2024 12: 49 PM EDT ELECTROLYTE PANEL Routine 05/09/2024 6:0 1 AM EDT IONIZED CALCIUM Routine 05/09/2024 3:00 AM EDT PHOSPHORUS Routine 05/09/2024 3:00 AM EDT MAGNESIUM Routine 05/09/2024 3:00 AM EDT COMPREHENSIVE METABOLIC PANEL Routine 05/09/2024 3:00 AM EDT CBC (NO DIFF) Routine 05/09/2024 3:00 AM EDT ELECTROLYTE PANEL Routine 05/09/2024 12: 01 AM EDT ELECTROLYTE PANEL Routine 05/08/2024 6:1 3 PM EDT TROP I, HIGH SENSITIVITY 3 HOUR Routine 05/08/2024 11:58 AM EDT VITAMIN D 25 HYDROXY Add-On 05/08/2024 11:58 AM EDT ELECTROLYTE PANEL Routine 05/08/2024 11: 58 AM EDT IONIZED MAGNESIUM Routine 05/08/2024 11: 58 AM EDT OSMOLALITY, URINE STAT 05/08/2024 10: 20 AM EDT SODIUM, URINE, RANDOM STAT 05/08/2024 10:20 AM EDT DRUG SCREEN, URINE Routine 05/08/2024 10 :20 AM EDT URIC ACID Add-On 05/08/2024 8:51 AM EDT THYROID PROFILE INCLUDES TSH FT4 Add-On 05/08/2024 8:51 AM EDT OSMOLALITY Add-On 05/08/2024 8:51 AM EDT CORTISOL Add-On 05/08/2024 8:51 AM EDT ETHANOL Add-On 05/08/2024 8:51 AM EDT LIPID PROFILE Routine 05/08/2024 8:51 AM EDT HEMOGLOBIN A1C Routine 05/08/2024 8:51 AM EDT TROP I, HIGH SENSITIVITY 3 HOUR Routine 05/08/2024 8:51 AM EDT MAGNESIUM Routine 05/08/2024 5:20 AM EDT COMPREHENSIVE METABOLIC PANEL Routine 05/08/2024 5:20 AM EDT TROP I, HIGH SENSITIVITY 3 HOUR Routine 05/08/2024 3:30 AM EDT CBC (NO DIFF) Routine 05/08/2024 3:30 AM EDT THYROID PROFILE INCLUDES TSH FT4 STAT 05/07/2024 8:50 PM EDT MAGNESIUM STAT 05/07/2024 8:50 PM EDT COMPREHENSIVE METABOLIC PANEL STAT 05/07/2024 8:50 PM EDT ECG 12-LEAD Routine 05/07/2024 6:39 PM EDT RESPIRATORY CARE EDUCATION Routine 05/07/2024 6:36 PM EDT CARDIAC INVASIVE Routine 05/07/2024 6:[address] elevation myocardial infarction (STEMI), unspecified artery (CMS-HCC) CARDIAC INVASIVE Routine 05/07/2024 6:[address] elevation myocardial infarction (STEMI), unspecified artery (CMS-HCC) CARDIAC INVASIVE Routine 05/07/2024 6:[address] elevation myocardial infarction (STEMI), unspecified artery (CMS-HCC) CARDIAC INVASIVE Routine 05/07/2024 6:[address] elevation myocardial infarction (STEMI), unspecified artery (CMS-HCC) CARDIAC INVASIVE Routine 05/07/2024 6:[address] elevation myocardial infarction (STEMI), unspecified artery (CMS-HCC) ECHO LIMITED WITHOUT CONTRAST STAT 05/07/2024 4:42 PM EDT POCT ABG WITH NA, K GLU, ICA AND HCT STAT 05/07/2024 4:41 PM EDT ECG 12-LEAD Routine 05/07/2024 4:14 PM EDT BEDSIDE GLUCOSE Routine 05/07/2024 4:09 PM EDT APTT Routine 05/07/2024 4:08 PM EDT TROPONIN I, HIGH SENSITIVITY STAT 05/07/2024 4:08 PM EDT PROTIME & INR STAT 05/07/2024 4:08 PM EDT CBC WITH AUTO DIFFERENTIAL STAT 05/07/2024 4:08 PM EDT XR CHEST 1 VW STAT 05/07/2024 2:[address] CERVICAL SPINE WO CONT STAT 05/07/2024 2:40 PM EDT XR PELVIS 1 OR 2 VWS STAT 05/07/2024 2:[address] BRAIN WO CONT STAT 05/07/2024 2:39 PM EDT ECG 12-LEAD STAT 05/07/2024 2:15 PM EDT ECG 12-LEAD STAT 05/07/2024 1:50 PM EDT SODIUM Routine 05/07/2024 12:03 AM EDT HEPARIN ANTI XA, UNFRACTIONATED Routine 05/07/2024 12:03 AM EDT from Last 3 Months Results * Phosphorus (05/18/2024 5:19 AM EDT) Only the most recent of10 resultswithin the time period is included. Phosphorus 4.4 2.4 - 4.9 mg/dL 05/18/2024 6:39 AM EDT [facility] PLASMA 05/18/2024 5:19 AM EDT 05/18/2024 5:20 AM EDT us Alfa Gregory MD LAB BLOOD ORDERABLES Final Resul t [facility] [address] [place] [id number] * Magnesium (05/18/2024 5:19 AM EDT) Only the most recent of13 resultswithin the time period is included. Magnesium 2.1 1.8 - 2.6 mg/dL 05/18/2024 6:39 AM EDT [facility] PLASMA 05/18/2024 5:19 AM EDT 05/18/2024 5:20 AM EDT us Alfa Gregory MD LAB BLOOD ORDERABLES Final Resul t Performing Organization Address [facility]/ZIP Co de Phone Number [facility] [address] [place] [id number] * Ionized calcium (05/18/2024 5:19 AM EDT) Only the most recent of12 resultswithin the time period is included. Calcium, ionized 5.0 4.5 - 5.3 mg/dL 05/18/2024 6:45 AM EDT [facility] PLASMA 05/18/2024 5:19 AM EDT 05/18/2024 5:20 AM EDT us Alfa Gregory MD LAB BLOOD ORDERABLES Final Resul t [facility] [address], [address] [place] [address] * (ABNORMAL) Basic Metabolic Panel (05/18/2024 5:19 AM EDT) Sodium 134 134 - 146 mmol/L 05/18/2024 6:39 AM EDT [facility] Potassium, Bld 4.2 3.5 - 5.0 mmol/L 05/18/2024 6:39 AM EDT [facility] Chloride 99 98 - 109 mmol/L 05/18/2024 6:39 AM EDT [facility] CO2 25 22 - 32 mmol/L 05/18/2024 6:39 AM EDT [facility] Anion gap 10 5 - 15 mmol/L 05/18/2024 6:39 AM EDT [facility] BUN 8 5 - 27 mg/dL 05/18/2024 6:39 AM EDT [facility] Creatinine 0.44 0.40 - 1.00 mg/dL 05/18/2024 6:39 AM EDT [facility] Comment:METHOD TRACEABLE TO IDMS STANDARD Glucose 104(H) 65 - 99 mg/dL 05/18/2024 6:39 AM EDT [facility] Calcium 9.6 8.5 - 10.5 mg/dL 05/18/2024 6:39 AM EDT [facility] eGFR (CKD-EPI)non-ra ce dependent >90 >59 ml/min/1.7 3sq.m 05/18/2024 6:39 AM EDT [facility] Comment: Reported eGFR is based on the CKD-EPI 2020 equation that does not use a race coefficient. PLASMA 05/18/2024 5:19 AM EDT 05/18/2024 5:20 AM EDT us Alfa Gregory MD LAB BLOOD ORDERABLES Final Resul t [facility] [address], [address] [place] [address] * (ABNORMAL) CBC without diff (05/17/2024 3:45 AM EDT) Only the most recent of10 resultswithin the time period is included. [facility] White Blood Cells 7.0 4.0 - 11.0 X10E9/L 05/17/2024 4:38 AM EDT [facility] RBC count 3.79(L) 3.80 - 5.20 X10E12/L 05/17/2024 4:38 AM EDT [facility] Hemoglobin 12.8 11.7 - 15.5 g/dL 05/17/2024 4:38 AM EDT [facility] Hematocrit 36.6 35 - 47 % 05/17/2024 4:38 AM EDT [facility] MCV 97 80 - 100 fL 05/17/2024 4:38 AM EDT [facility] MCH 33.7 27 - 34 pg 05/17/2024 4:38 AM EDT [facility] MCHC 34.9 32 - 36 g/dL 05/17/2024 4:38 AM EDT [facility] RDW 13.3 11.5 - 15.0 % 05/17/2024 4:38 AM EDT [facility] Platelets 388 150 - 450 X10E9/L 05/17/2024 4:38 AM EDT [facility] MPV 7.7 7 - 12 fL 05/17/2024 4:38 AM EDT [facility] Blood / Unknown 05/17/2024 3 :45 AM EDT 05/17/2024 3:46 AM EDT us Leobardo Greene PA-C LAB BLOOD ORDERABLES Final Result [facility] [address] [place] [address] * (ABNORMAL) Comprehensive metabolic panel (05/17/2024 3:45 AM EDT) Only the most recent of11 resultswithin the time period is included. [facility] Sodium 133(L) 134 - 146 mmol/L 05/17/2024 4:42 AM [facility] Potassium, Bld 4.0 3.5 - 5.0 mmol/L 05/17/2024 4:42 AM [facility] Chloride 100 98 - 109 mmol/L 05/17/2024 4:42 AM [facility] CO2 23 22 - 32 mmol/L 05/17/2024 4:42 AM [facility] Anion gap 10 5 - 15 mmol/L 05/17/2024 4:42 AM [facility] BUN 12 5 - 27 mg/dL 05/17/2024 4:42 AM [facility] Creatinine 0.48 0.40 - 1.00 mg/dL 05/17/2024 4:42 AM [facility] Comment:METHOD TRACEABLE TO IDMS STANDARD Glucose 105(H) 65 - 99 mg/dL 05/17/2024 4:42 AM [facility] Calcium 9.1 8.5 - 10.5 mg/dL 05/17/2024 4:42 AM [facility] Total Protein 6.8 6.0 - 8.0 g/dL 05/17/2024 4:42 AM [facility] Albumin 3.9 3.2 - 5.3 g/dL 05/17/2024 4:42 AM [facility] Alkaline Phosphatase 77 39 - 130 U/L 05/17/2024 4:42 AM [facility] AST 18 0 - 41 U/L 05/17/2024 4:42 AM [facility] ALT 16 0 - 31 U/L 05/17/2024 4:42 AM [facility] Total bilirubin 0.4 0.3 - 1.2 mg/dL 05/17/2024 4:42 AM [facility] eGFR (CKD-EPI)non-rac e dependent >90 >59 ml/min/1.7 3sq.m 05/17/2024 4:42 AM EDT [facility] Comment: Reported eGFR is based on the CKD-EPI 2020 equation that does not use a race coefficient. PLASMA 05/17/2024 3:45 AM EDT 05/17/2024 3:46 AM EDT Leobardo Greene PA-C LAB BLOOD ORDERABLES Final Result [facility] [address], [address] [place] [address] * Bedside Glucose *Place/Obtain serum glucose if >500 per glucometer. (05/14/2024 9:10 AM EDT) Only the most recent of2 resultswithin the time period is included. Bedside glucose 86 65 - 99 mg/dL 05/14/2024 9:15 AM EDT [employer] Blood / Unknown 05/14/2024 9 :10 AM EDT 05/14/2024 9:15 AM EDT Maya Zavala MD POINT OF CARE TEST ORDERAB LES Final Result ARMEN * (ABNORMAL) Electrolyte panel (05/13/2024 12:54 PM EDT) Only the most recent of15 resultswithin the time period is included. Sodium 132(L) 134 - 146 mmol/L 05/13/2024 1:52 PM EDT [facility] Potassium, Bld 3.8 3.5 - 5.0 mmol/L 05/13/2024 1:52 PM EDT [facility] Chloride 97(L) 98 - 109 mmol/L 05/13/2024 1:52 PM EDT [facility] CO2 26 22 - 32 mmol/L 05/13/2024 1:52 PM EDT [facility] Anion gap 9 5 - 15 mmol/L 05/13/2024 1:52 PM EDT [facility] PLASMA 05/13/2024 12:5 4 PM EDT 05/13/2024 12:55 PM EDT us Alfa Gregory MD LAB BLOOD ORDERABLES Final Resul t Performing Organization Address City/[facility] Co de Phone Number [employer] [address], [address] [place] [address] * (ABNORMAL) Thiamin (Vitamin B1), WB (05/10/2024 2:35 PM EDT) Only the most recent of2 resultswithin the time period is included. Thiamine 68(L) 70 - 180 nmol/L 05/14/2024 2:01 PM EDT [employer] Comment: NOTE ADDITIONAL INFORMATION This test was developed and its performance characteristics determined by [facility] in a manner consistent with CLIA requirements. This test has not been cleared or approved by the U.S. Food and Drug Administration. Test Performed by: [facility] [place] [address] Telecommunicator: Ester Macdonald Ph.D.; CLIA# [id number] Blood Blood / Unknown 05/10/2024 2 :35 PM EDT 05/10/2024 2:36 PM EDT us Caio White MD LAB BLOOD ORDERABLES Final Resul t [employer] * (ABNORMAL) Folate (05/10/2024 2:35 PM EDT) Only the most recent of2 resultswithin the time period is included. Folate 4.2(L) >5.8 ng/mL 05/10/2024 3:34 PM EDT [facility] Comment:NEW REFERENCE RANGE PLASMA 05/10/2024 2:35 PM EDT 05/10/2024 2:36 PM EDT Caio White MD LAB BLOOD ORDERABLES Final Resul t [facility] [address], [address] [place] [address] * Vitamin B12 (05/10/2024 2:35 PM EDT) Vitamin B-12 295 180 - 914 pg/mL 05/10/2024 3:34 PM EDT [facility] Serum / Unknown 05/10/2024 2 :35 PM EDT 05/10/2024 2:36 PM EDT Caio White MD LAB BLOOD ORDERABLES Final Resul t Performing Organization Address [facility] Co de Phone Number [facility] [address], [address] [place] [address] * EEG (05/10/2024 1:30 PM EDT) Narrative MANUALLY TRANSCRIBED RESULTS - 05/10/2024 2:11 PM EDT Images from the original result were not included. PA Neurology EEG REPORT EEG Service Date: 05/10/24 Date of Report: 05/10/24 History: Alie Briones is a 63 y.o. female with hallucinations and memory loss who is undergoing EEG to evaluate for seizures. Centrally active medications: Buspar, diphenydramine, lorazepam, morphine. Procedure: This EEG was acquired with electrodes placed according to the [id number] electrode placement system. The EEG was acquired and reviewed using multiple, reformattable montages. A single EKG channel was recorded for cardiac rhythm monitoring. Technical description: This EEG is recorded during sleep. No wakefulness was recorded. Background is composed of 5-10 V diffuse beta frequency intermixed with 20-30 V delta frequency. The re is no alpha frequency or posterior dominant rhythm. No epileptiform abnormalities are noted in the form of spikes or sharp waves. No electrographic seizure activity is recorded. Stage II sleep is noted, correlated with the presence of bilaterally symmetric spindle activity and generalized delta frequencies. Hyperventilation was deferred. Photic stimulation failed to elicit posterior driving responses. EEG diagnosis: This EEG is normal during sleep only. No wakefulness was recorded. No epileptiform abnormalities or seizures were recorded. EEG interpretation: This EEG is normal during sleep. The absence of epileptiform abnormalities does not exclude the possibility of intermittent seizures. Kat Marquez M.D., Ph.D. Business Services Manager [facility] Neurology us Cristal Harris MD NEUROLOGY ORDERABLES Final Resul t MANUALLY TRANSCRIBED RESULTS * Ionized magnesium (05/10/2024 11:01 AM EDT) Only the most recent of3 resultswithin the time period is included. Magnesium, ionized 0.64 0.45 - 0.74 mmol/L 05/10/2024 11:27 AM EDT [facility] Comment:NEW REFERENCE RANGE PLASMA 05/10/2024 11:0 1 AM EDT 05/10/2024 11:02 AM EDT us Leobardo Greene PA-C LAB BLOOD ORDERABLES Final Result Performing Organization Address City/[facility] Co de Phone Number [facility] [address], [address] [place] [address] * Echo limited W/O contrast (05/10/2024 10:32 AM EDT) Anatomical Region Laterality Modality Chest N/A Ultrasound Narrative 05/10/2024 2:40 PM EDT Left Ventricle: Left ventricle appears normal in size. Systolic function is severely decreased with an ejection fraction of 20-25%. Right Ventricle: Right ventricular size appears normal. Systolic function is normal. Left Ventricle Left ventricle appears normal in size. Systolic function is severely decreased with an ejection fraction of 20-25%. Right Ventricle Right ventricular size appears normal. Systolic function is normal. Pericardium There is no pericardial effusion. Study Details A limited echo was performed using limited 2D and limited left ventricle function/wall motion. During the study the apical and parasternal views were captured. Overall the study quality was adequate. Wall Scoring Baseline Score Index: 2.06 The following segments are akinetic: mid inferoseptal, apical septal and apex. The following segments are hypokinetic: basal anterior, basal anteroseptal, basal inferoseptal, basal inferior, mid anterior, mid anteroseptal, mid inferior, mid inferolateral, mid anterolateral, apical anterior, apical inferior and apical lateral. All other segments are normal. Aiden Spangler MD ECHO ORDERABLES Final Result * PERCUTANEOUS CORONARY INTERVENTION, CARDIAC INVASIVE, STENT DRUG-ELUT/EA ADD BR LCX (05/09/2024 4:18 PM EDT) Anatomical Region Laterality Modality X-Ray Angiograph y Narrative 05/10/2024 9:14 AM EDT Successful staged revascularization of the 80% stenosis of the second obtuse marginal with a 2.25 x 15 mm drug-eluting stent with CESAR 3 flow. Previously placed drug-eluting stent in the left anterior descending artery is patent. Recommendations: Continue dual anti-platelet therapy with aspirin 81 mg daily and prasugrel 10 mg daily for 6-12 months followed by single anti-platelet therapy. Continue aggressive risk factor modification. Continue aggressive medical management. 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 Coronary Findings Diagnostic Dominance: Right Left Main: The vessel is moderate in size and is angiographically normal. Left Anterior Descending: The vessel is small. There is severe diffuse disease throughout the vessel. The vessel is moderately calcified. Previously placed Prox LAD to Mid LAD drug eluting stent is widely patent. Culprit lesion. Lesion length: 44 mm. The lesion is type C and thrombotic. The lesion is moderately calcified. The lesion was previously treated using angioplasty and thrombectomy. Angioplasty was performed using a semi-compliant balloon. Thrombus removal was done manually. Left Circumflex: The vessel is moderate in size. There is mild diffuse disease throughout the vessel. Mid Cx to Dist Cx lesion is 40% stenosed. Second Obtuse Marginal Branch: 2nd Mrg lesion is 85% stenosed. Right Coronary Artery: The vessel was not injected. Intervention 2nd Mrg lesion: Stent: A stent was successfully placed. Post-Intervention Lesion Assessment: There is a 0% residual stenosis post intervention. Aiden Spangler MD CV CARDIAC CATH ORDERABLES Final Result * (ABNORMAL) Troponin I, High Sensitivity 3 Hour (05/08/2024 11:58 AM EDT) Only the most recent of3 resultswithin the time period is included. Pathologist [facility] [place] 3 Hour Trop I, High Sensitivity 31,490(HH) <16 ng/L 05/08/2024 1:19 PM EDT [facility] Comment: Elevations of hs-Troponin may be due to causes other than myocardial ischemia. Recommend serial hs-Troponin testing be performed. For the initial evaluation and management of chest pain patients, refer to the algorithms linked below. Emergency Patient: [email or web address] [email or web address]: [email or web address] [facility] [place] 05/08/2024 11:5 8 AM EDT 05/08/2024 11:59 AM EDT Comment:Serum specimen~Misce llaneous us Alfa Gregory MD LAB BLOOD ORDERABLES Edited Resu lt - Final [facility] [address], [address] [place] [address] * (ABNORMAL) Vitamin D 25 hydroxy (05/08/2024 11:58 AM EDT) [facility] Vit D, 25-Hydroxy 7.6(L) 30 - 100 ng/mL 05/08/2024 1:21 PM EDT [facility] Comment: Vitamin D status 25 [place] Vitamin D Deficiency <20 ng/mL Insufficiency 20-29 ng/mL Sufficiency 30-100 ng/mL Toxicity >100 ng/mL NOTE: A pediatric reference range has not been established by the signal and communications maintainer of this kit. The [place] [employer] recommends a Vitamin D level of = or >20ng/mL in infants and children. PLASMA 05/08/2024 11:5 8 AM EDT 05/08/2024 11:59 AM EDT us Alfa Gregory MD LAB BLOOD ORDERABLES Final Resul t [facility] [address] [place] [address] * (ABNORMAL) Drug Screen, Urine (05/08/2024 10:20 AM EDT) Amphetamine/metham phetamine Negative Negative^ Negative 05/08/2024 11:54 AM EDT [facility] Comment:AMPH/METH screening cut off = 1000 ng/mL Barbiturate Screen, Ur Negative Negative^ Negative 05/08/2024 11:54 AM EDT [facility] Comment:Barbiturates screeni ng cut off value = 200 ng/mL Benzodiazepine Screen, Urine Positive(A) Negative^ Negative 05/08/2024 11:54 AM T [facility] Comment: Confirmation available upon request. Benzodiazepines screening cut off value = 200 ng/mL THC, urine Negative Negative^ Negative 05/08/2024 11:54 AM EDT [facility] Comment:Cannabinoids/THC scr eening cut off value = 50 ng/mL Cocaine (metabolite) Negative Negative^ Negative 05/08/2024 11:54 AM EDT [facility] Comment:Cocaine screening cu t off value = 300 ng/mL Opiate Quant, Ur Positive(A) Negative^ Negative 05/08/2024 11:54 AM T [facility] Comment: Confirmation available upon request. Opiates screening cut off value = 300 ng/mL NOTE: This test is used for the detection of codeine, hydrocodone (>1000 ng/mL), morphine and hydromorphone (>900 ng/mL) in urine. Phencyclidine Negative Negative^ Negative 05/08/2024 11:54 AM T [facility] Comment:Phencyclidine screen ing cut off value = 25 ng/mL Oxycodone Negative Negative^ Negative 05/08/2024 11:54 AM EDT [facility] Comment: Oxycodone screening cut off value = 300 ng/mL NOTE: This test is used for the detection of oxycodone and oxymorphone in urine. Methadone Negative Negative^ Negative 05/08/2024 11:54 AM EDT [facility] Comment:Methadone screening cut off value = 300 ng/mL. Ecstasy Negative Negative^ Negative 05/08/2024 11:54 AM EDT [facility] Comment: Ecstasy screening cut off value = 500 ng/mL This report is intended for use in clinical monitoring or management of patients. Urine / Unknown 05/08/2024 1 0:20 AM EDT 05/08/2024 10:57 AM EDT us Berta Kang MD URINE ORDERABLES Final Result [facility] [address] [facility] [place] [address] * Sodium, urine, random (05/08/2024 10:20 AM EDT) Sodium Urine Random <10 mmol/L 05/08/2024 11:35 AM EDT [facility] Urine / Unknown 05/08/2024 1 0:20 AM EDT 05/08/2024 10:57 AM EDT us Alfa Gregory MD URINE ORDERABLES Final Result [facility] [address] [place] [id number] * Osmolality, urine (05/08/2024 10:20 AM EDT) Osmolality, Ur 353 300 - 1,300 mOsm/kg H2 05/08/2024 11:34 AM EDT [facility] Urine / Unknown 05/08/2024 1 0:20 AM EDT 05/08/2024 10:58 AM EDT us Alfa Gregory MD URINE ORDERABLES Final Result Performing Organization Address City/[facility]/ZIP Co de Phone Number [facility] [address] [place] [address], [facility] [address] [place] [address] * Thyroid profile includes TSH FT4 (05/08/2024 8:51 AM EDT) Only the most recent of2 resultswithin the time period is included. TSH 1.49 0.49 - 4.67 uIU/mL 05/08/2024 10:47 AM EDT [facility] T4, free 1.07 0.61 - 1.60 ng/dL 05/08/2024 10:47 AM EDT [facility] PLASMA 05/08/2024 8:51 AM EDT 05/08/2024 8:54 AM EDT us Berta Kang MD LAB BLOOD ORDERABLES Fi nal Result Performing Organization Address City/[facility]/ZIP Co de Phone Number [facility] [address] [place] [id number] * Uric acid (05/08/2024 8:51 AM EDT) Uric Acid 3.7 2.6 - 7.2 mg/dL 05/08/2024 10:24 AM EDT [facility] PLASMA 05/08/2024 8:51 AM EDT 05/08/2024 8:54 AM EDT us Berta Kang MD LAB BLOOD ORDERABLES Fi nal Result Performing Organization Address City/[facility]/ZIP Co de Phone Number [facility] [address] [place] [address], [address] [place] [address] * (ABNORMAL) Osmolality (05/08/2024 8:51 AM EDT) Osmolality 256(L) 280 - 300 mOsm/kg H2 05/08/2024 12:18 PM EDT [facility] PLASMA 05/08/2024 8:51 AM EDT 05/08/2024 8:54 AM EDT us Berta Kang MD LAB BLOOD ORDERABLES Fi nal Result Performing Organization Address City/[facility]/ZIP Co de Phone Number [facility] [address] [place] [address] * (ABNORMAL) Hemoglobin A1c (05/08/2024 8:51 AM EDT) [facility] Hemoglobin A1C 5.8(H) 4.4 - 5.6 % 05/08/2024 10:50 AM EDT [facility] Comment: NOTE ADA Guidelines Result HgbA1c Normal : less than 5.7 % Prediabetes : 5.7 % to 6.4 % Diabetes : > 6.4 % Use with caution in patients with abnormal hemoglobin variants as the half-life of red blood cells and in vivo glycation rates are affected. Average glucose 120 mg/dL 10:50 AM EDT [facility] PLASMA 05/08/2024 8:51 AM EDT 05/08/2024 8:54 AM EDT us Berta Kang MD LAB BLOOD ORDERABLES Fi nal Result [facility] [address] [place] [address], [facility] [address] [place] [address] * Cortisol (05/08/2024 8:51 AM EDT) Cortisol, Plasma 15.2 ug/dL 05/08/2024 10:29 AM EDT [facility] Comment: Due to the diurnal variation of cortisol levels in normal subjects, all cortisol measurements should be referenced to the time of day of sample collection. AM Cortisol Age>=6 6.7-22.4 ug/dL PM Cortisol Age>=6 <10 ug/dL PLASMA 05/08/2024 8:51 AM EDT 05/08/2024 8:54 AM EDT Berta Kang MD LAB BLOOD ORDERABLES Fi nal Result Performing Organization Address [facility] Co de Phone Number [facility] [address] [place] [address] * Ethanol (05/08/2024 8:51 AM EDT) Ethanol Lvl <0.01 0.00 - 0.08 g/dL 05/08/2024 10:47 AM EDT [facility] Comment: This report is intended for use in clinical monitoring or management of patients. PLASMA 05/08/2024 8:51 AM EDT 05/08/2024 8:54 AM EDT Berta Kang MD LAB BLOOD ORDERABLES Fi nal Result Performing Organization Address [facility] Co de Phone Number [facility] [address] [place], [place] [id number] * Lipid profile (05/08/2024 8:51 AM EDT) Cholesterol 197 150 - 200 mg/dL 05/08/2024 10:24 AM EDT [facility] Triglycerides 145 27 - 150 mg/dL 05/08/2024 10:24 AM EDT [facility] HDL Cholesterol 45 >39 mg/dL 10:24 AM EDT [facility] Comment: HDL <40 mg/dL - High Risk HDL > or = 40mg/dL- Desirable HDL >60 mg/dL - Negative Risk VLDL 29 0 - 30 mg/dL 05/08/2024 10:24 AM EDT [facility] LDL (calc) 123 <130 mg/dL 05/08/2024 10:24 AM EDT [facility] Comment: LDL <100 mg/dL - Desirable LDL >160 mg/dL - High Risk Cholesterol:HDL Ratio 4.4 1.0 - 5.0 05/08/2024 10:24 AM EDT [facility] PLASMA 05/08/2024 8:51 AM EDT 05/08/2024 8:54 AM EDT us Berta Kang MD LAB BLOOD ORDERABLES Fi nal Result [facility] [address] [place] [address] * EKG 12 lead (05/07/2024 6:39 PM EDT) Only the most recent of4 resultswithin the time period is included. 05/07/2024 6:39 PM EDT Narrative [facility] - 05/07/2024 8:19 PM EDT us Gilberto Zepeda MD ECG ORDERABLES Final Result [facility] * PERCUTANEOUS CORONARY INTERVENTION, CARDIAC INVASIVE, REVASC COIL INSPECTOR/SEAN STENT/ATH LAD, IVUS INITIAL VESSEL, INSERT/REPLACE TEMP SNGL PM (05/07/2024 6:01 PM EDT) Anatomical Region Laterality Modality X-Ray Angiograph y Narrative 05/07/2024 6:30 PM EDT Successful placement of temporary pacing wire for the indication of complete heart block Severe multivessel coronary artery disease Successful placement of 1 drug-eluting stent to proximal to mid LAD with intravascular ultrasound assistance showing well apposed and expanded stent Successful treatment of no reflow phenomena using intracoronary adenosine and nitroglycerin Recommendations: Continue aggressive risk factor modification Continue aggressive medical management Aggrastat for 12 hours Dual anti-platelet therapy for 6-12 months followed by single anti-platelet therapy Staged intervention to obtuse marginal prior to discharge Removal of temporary pacemaker if rhythm stabilizes Electrophysiology consultation Coronary Findings Diagnostic Dominance: Right Left Main: The vessel was visualized by angiography, is moderate in size and is angiographically normal. Left Anterior Descending: The vessel was visualized by angiography and is small. There is severe diffuse disease throughout the vessel. The vessel is moderately calcified. Prox LAD to Mid LAD lesion is 100% stenosed. Culprit lesion. CESAR flow is 0. Lesion length: 44 mm. The lesion is type C and thrombotic. The lesion is moderately calcified. Left Circumflex: The vessel was visualized by angiography and is moderate in size. There is mild diffuse disease throughout the vessel. Mid Cx to Dist Cx lesion is 40% stenosed. Second Obtuse Marginal Branch: 2nd Mrg lesion is 85% stenosed. Right Coronary Artery: Prox RCA to Mid RCA lesion is 20% stenosed. Intervention Prox LAD to Mid LAD lesion: Angioplasty: Angioplasty independent of stent deployment was performed using a CATHETER BLN 2.5MM 15MM 144CM EMERGE MNRL WORKHORSE OPTILEAP RPL [id number] semi-compliant balloon. Maximum pressure: 14 zakia. Inflation time: 20 sec. Stent: A SYSTEM COR STNT 2.75MM x 48MM 144CM SYNERGY XD MNRL SEAN PLTN drug- eluting stent was successfully placed. Maximum pressure: 14 zakia. Inflation time: 20 sec. Thrombectomy: Performed 2 passes of manual thrombectomy using a CATHETER THRMB PRNT LP FONSECA 6FR 140CM HDRPH COR CYRUS 2 LCK catheter to remove a clot. Total fluid removed: 20 mL. 240 mcg of adenosine was given through the Pronto as well as 200 mcg of nitroglycerin Post-Intervention Lesion Assessment: The intervention was successful. The guidewire crossed the lesion. Device was deployed. Post- intervention CESAR flow is 3. Ultrasound (IVUS) was performed. Minimum stent area: 4 mm . Severe plaque burden was detected. No reflow was successfully treated using a Pronto thrombectomy device for aspiration as well as a drug delivery device 240 mcg of adenosine was given as well as 200 mcg of intracoronary nitroglycerin was given via the Pronto. The patient experienced the no-reflow phenomenon in this vessel. There is a 0% residual stenosis post intervention. us Aiden Spangler MD CV CARDIAC CATH ORDERABLES Edite d Result - Final * Echo limited W/O contrast (05/07/2024 4:42 PM EDT) Anatomical Region Laterality Modality Chest N/A Ultrasound Narrative 05/08/2024 12:13 PM EDT Left Ventricle: Left ventricle appears normal in size. Systolic function is moderately to severely decreased with an ejection fraction of 30-35%. Aortic Valve: There is no regurgitation or stenosis. Mitral Valve: There is [id number] regurgitation. There is no evidence of mitral valve stenosis. Tricuspid Valve: There is trace regurgitation. There is no evidence of tricuspid valve stenosis. Left Ventricle Left ventricle appears normal in size. Wall thickness is normal. Systolic function is moderately to severely decreased with an ejection fraction of 30-35%. No segmental wall motion abnormalities. Right Ventricle Right ventricular size appears normal. Systolic function is normal. Left Atrium Left atrium is normal in size. Right Atrium Right atrium is normal in size. Mitral Valve Mitral valve structure is normal. There is [id number] regurgitation. There is no evidence of mitral valve stenosis. Tricuspid Valve Tricuspid valve appears to be normal. There is trace regurgitation. There is no evidence of tricuspid valve stenosis. Aortic Valve Probable trileaflet aortic valve. There is no regurgitation or stenosis. Pericardium There is no pericardial effusion. Study Details A limited echo was performed using limited 2D and limited left ventricle function/wall motion. During the study the apical and parasternal views were captured. Overall the study quality was good. Reason for exam: Complete heart block Wall Scoring Baseline Score Index: 2.06 The following segments are akinetic: basal anteroseptal, basal inferoseptal, mid anteroseptal, mid inferoseptal, apical septal and apex. The following segments are hypokinetic: basal anterior, basal inferior, mid anterior, mid inferior, apical anterior and apical inferior. The following segments are hyperkinetic: basal inferolateral and mid inferolateral. All other segments are normal. Harrison Espinal MD CV ECHO ORDERABLES Final Result * (ABNORMAL) POCT ABG with NA, K, GLU, ICA and HCT (05/07/2024 4:41 PM EDT) Portable sodium 117(LL) 134 - 146 mmol/L 05/07/2024 4:45 PM T [facility] Portable potassium 3.6 3.5 - 5.0 mmol/L 05/07/2024 4:45 PM [facility] Portable glucose 151(H) 65 - 99 mg/dL 05/07/2024 4:45 PM [facility] Portable hematocrit 40 35 - 47 % 05/07/2024 4:45 PM [facility] Ionized Calcium 4.5 4.5 - 5.3 mg/dL 05/07/2024 4:45 PM [facility] Sample Type ARTERIAL 05/07/2024 4:45 PM [facility] Body Temp 37.0 37.0 C 05/07/2024 4:45 PM [facility] pH 7.421 7.350 - 7.450 05/07/2024 4:45 PM [facility] PCO2 32.8(L) 35 - 45 MMHG 05/07/2024 4:45 PM [facility] PO2 79(L) 80 - 100 MMHG 05/07/2024 4:45 PM [facility] Base,Deficit 2.0 0.0 - 2.0 MMOL/L 05/07/2024 4:45 PM [facility] Portable HCO3 21.3(L) 22 - 26 MMOL/L 05/07/2024 4:45 PM [facility] % O2 Sat 96.0 >90 % 05/07/2024 4:45 PM [facility] Gilberto's Test Pass 05/07/2024 4:45 PM [facility] SPO2 97 % 05/07/2024 4:45 PM EDT [facility] Sample Site LRad 05/07/2024 4:45 PM EDT [facility] Oxygen Source NC 05/07/2024 4:45 PM EDT [facility] Artrial Blood Specimen 05/07/2024 4:41 PM EDT 05/07/2024 4:45 PM EDT us Maya Zavala MD POINT OF CARE TEST ORDERAB LES Final Result [facility] [address] [place] [address] * (ABNORMAL) Troponin I, High Sensitivity (05/07/2024 4:08 PM EDT) [facility] Troponin I, High Sensitivity 26,523(HH) <16 ng/L 05/07/2024 5:28 PM EDT [facility] Comment: Elevations of hs-Troponin may be due to causes other than myocardial ischemia. Recommend serial hs-Troponin testing be performed. For the initial evaluation and management of chest pain patients, refer to the algorithms linked below. Emergency Patient: [email or web address] Inpatient: [email or web address] Blood (MISC) 05/07/2024 4:08 PM EDT 05/07/2024 4:23 PM EDT Comment:Serum specimen~Misce llaneous us Harrison Espinal MD LAB BLOOD ORDERABLES Edited Resu lt - Final [facility] [address], [address] [place] [address] * (ABNORMAL) CBC auto differential (05/07/2024 4:08 PM EDT) [facility] White Blood Cells 17.7(H) 4.0 - 11.0 X10E9/L 05/07/2024 4:30 PM EDT [facility] RBC count 3.98 3.80 - 5.20 X10E12/L 05/07/2024 4:30 PM EDT [facility] Hemoglobin 13.3 11.7 - 15.5 g/dL 05/07/2024 4:30 PM EDT [facility] Hematocrit 37.8 35 - 47 % 05/07/2024 4:30 PM EDT [facility] MCV 95 80 - 100 fL 05/07/2024 4:30 PM EDT [facility] MCH 33.5 27 - 34 pg 05/07/2024 4:30 PM EDT [facility] MCHC 35.2 32 - 36 g/dL 05/07/2024 4:30 PM EDT [facility] RDW 12.8 11.5 - 15.0 % 05/07/2024 4:30 PM EDT [facility] Platelets 270 150 - 450 X10E9/L 05/07/2024 4:30 PM EDT [facility] MPV 8.5 7 - 12 fL 05/07/2024 4:30 PM EDT [facility] % neutrophils 84.0 % 05/07/2024 4:30 PM EDT [facility] % lymphocytes 8.1 % 05/07/2024 4:30 PM EDT [facility] % monocytes 7.7 % 05/07/2024 4:30 PM EDT [facility] % eosinophils 0.0 % 05/07/2024 4:30 PM EDT [facility] % Basophils 0.2 % 05/07/2024 4:30 PM EDT [facility] Neutrophils Absolute (A) 14.9(H) 1.5 - 6.6 X10E9/L 05/07/2024 4:30 PM EDT [facility] Lymphocytes Absolute 1.4 1.0 - 3.5 X10E9/L 05/07/2024 4:30 PM EDT [facility] Monocytes Absolute 1.4(H) 0 - 0.9 X10E9/L 05/07/2024 4:30 PM EDT [facility] Eosinophils Absolute 0.0 0.0 - 0.4 X10E9/L 05/07/2024 4:30 PM EDT [facility] Basophils Absolute 0.0 0.0 - 0.2 X10E9/L 05/07/2024 4:30 PM EDT [facility] Blood / Unknown 05/07/2024 4 :08 PM EDT 05/07/2024 4:24 PM EDT us Harrison Espinal MD LAB BLOOD ORDERABLES Final Resul t Performing Organization Address City/[facility]/ZIP Co de Phone Number [facility] [address] [place] [address], [address] [place] [address] * (ABNORMAL) APTT (05/07/2024 4:08 PM EDT) aPTT 124(HH) 26 - 37 sec 05/07/2024 4:51 PM EDT [facility] 05/07/2024 4:08 PM EDT 05/07/2024 4:24 PM EDT Comment:Plasma~Miscellaneous us Jaime Mora MD LAB BLOOD ORDERABLES Edited Re sult - Final [facility] [address] [place] [address], [address] [place] [address] * (ABNORMAL) Protime & INR (05/07/2024 4:08 PM EDT) Protime 13.4(H) 9.8 - 13.2 sec 05/07/2024 4:51 PM EDT [facility] Inr 1.2 0.9 - 1.2 05/07/2024 4:51 PM EDT [facility] PLASMA 05/07/2024 4:08 PM EDT 05/07/2024 4:24 PM EDT us Harrison Espinal MD LAB BLOOD ORDERABLES Final Resul t [facility] [address], [address] [place] [address] * X-ray chest 1 view (05/07/2024 2:40 PM EDT) Anatomical Region Laterality Modality Body, Chest N/A Computed Radiogr aphy 05/07/2024 2:45 PM EDT Narrative 05/07/2024 2:46 PM EDT Single view chest XR CHEST 1 VW History: dizziness Comparison: June 30, 2022 Impression: * No consolidation or pleural fluid. No acute findings. Finalized by Nnamdi Amaro MD on 05/07/2024 2:46 PM Procedure Note Nnamdi Amaro MD - 05/07/2024 Single view chest XR CHEST 1 VW History: dizziness Comparison: June 30, 2022 Impression: * No consolidation or pleural fluid. No acute findings. Finalized by Nnamdi Amaro MD on 05/07/2024 2:46 PM Gretchen Fraser MD IMG DIAGNOSTIC IMAGING ORDERA BLES Final Result * CT cervical spine without contrast (05/07/2024 2:40 PM EDT) Anatomical Region Laterality Modality MSK, Neuro, Spine, C-spine, Spine Covera N/A Computed Tomography 05/07/2024 2:42 PM EDT Narrative 05/07/2024 2:[address] CERVICAL SPINE WO CONT INDICATION: Fall, neck trauma. TECHNIQUE: CT of the cervical spine without intravenous contrast. Sagittal and coronal reformats created and reviewed. COMPARISON: CT 07/20/2020. FINDINGS: There is no evidence of acute fracture or dislocation. There is slight anterolisthesis C3-C4. The spinal canal is patent. No prevertebral or paraspinal soft tissue swelling. If there is concern for ligamentous or cord injury MRI could be helpful in further evaluation. There are mild multilevel degenerative changes without significant spinal stenosis. Visualized lung apices are clear. IMPRESSION: 1. No acute traumatic injury of the cervical spine. If there is concern for ligamentous or cord injury MRI could be helpful in further evaluation. All CT scans at this facility use dose modulation, iterative reconstruction, and/or weight based dosing when appropriate to reduce radiation dose to as low as reasonably achievable. Finalized by Maximilian Link MD on 05/07/2024 2:45 PM Procedure Note Maximilian Link MD - 05/07/2024 CT CERVICAL SPINE WO CONT INDICATION: Fall, neck trauma. TECHNIQUE: CT of the cervical spine without intravenous contrast. [place] coronal reformats created and reviewed. COMPARISON: CT 07/20/2020. FINDINGS: There is no evidence of acute fracture or dislocation. There is slightanterolisthesis C3-C4. The spinal canal is patent. No prevertebral orparaspinal soft tissue swelling. If there is concern for ligamentous orcord injury MRI could be helpful in further evaluation. There are mild multilevel degenerative changes without significant spinalstenosis. Visualized lung apices are clear. IMPRESSION: 1. No acute traumatic injury of the cervical spine. If there is concernfor ligamentous or cord injury MRI could be helpful in further evaluation. All CT scans at this facility use dose modulation, iterativereconstruction, and/or weight based dosing when appropriate to reduceradiation dose to as low as reasonably achievable. Finalized by Maximilian Link MD on 05/07/2024 2:45 PM Gretchen Fraser MD IM CT ORDERABLES Final Resul t * X-ray pelvis 1 or 2 views (05/07/2024 2:40 PM EDT) Anatomical Region Laterality Modality MSK, Pelvis N/A Computed Radiogr aphy 05/07/2024 2:43 PM EDT Narrative 05/07/2024 2:43 PM EDT XR PELVIS 1 OR 2 VWS fall Pelvic trauma Findings: There is grossly no fracture or destructive lesion. Impression: * No acute findings. * Consider MRI if you suspect occult process. Finalized by Nnamdi Amaro MD on 05/07/2024 2:43 PM Procedure Note Nnamdi Amaro MD - 05/07/2024 XR PELVIS 1 OR 2 VWS fall Pelvic trauma Findings: There is grossly no fracture or destructive lesion. Impression: * No acute findings. * Consider MRI if you suspect occult process. Finalized by Nnamdi Amaro MD on 05/07/2024 2:43 PM Gretchen Fraser MD IMG DIAGNOSTIC IMAGING ORDERA BLES Final Result * CT brain without contrast (05/07/2024 2:39 PM EDT) Anatomical Region Laterality Modality Neuro, Head, Head and Neck, Neuro Covera N/A Computed Tomography 05/07/2024 2:40 PM EDT Narrative 05/07/2024 2:42 PM EDT STUDY: CT HEAD WITHOUT CONTRAST CLINICAL HISTORY: Memory loss; fall, dizziness COMPARISON: July 20, 2020 Procedure: Multi-detector CT performed through the brain without IV contrast. The lack of IV contrast limits evaluation for acute infarct, mass, infectious process,or demyelinating disease.Automated exposure control was utilized. Findings: There is no intracranial hemorrhage, extra-axial fluid collection, mass effect, or hydrocephalus. Alexandre-white matter differentiation is appropriate. Infarcts and masses may be occult on CT, but grossly no acute infarct identified There is no midline shift. IMPRESSION: * No acute intracranial findings. Consider brain MRI if you suspect occult process. All CT scans at this facility use dose modulation, iterative reconstruction, and/or weight based dosing when appropriate to reduce radiation dose to as low as reasonably achievable. Finalized by Nnamdi Amaro MD on 05/07/2024 2:42 PM Procedure Note Nnamdi Amaro MD - 05/07/2024 STUDY: CT HEAD WITHOUT CONTRAST CLINICAL HISTORY: Memory loss; fall, dizziness COMPARISON: July 20, 2020 Procedure: Multi-detector CT performed through the brain without IV contrast. Thelack of IV contrast limits evaluation for acute infarct, mass, infectiousprocess,or demyelinating disease.Automated exposure control wasutilized. Findings: There is no intracranial hemorrhage, extra-axial fluid collection, masseffect, or hydrocephalus. Alexandre-white matter differentiation is appropriate. Infarcts and masses may be occult on CT, but grossly no acute infarctidentified There is no midline shift. IMPRESSION: * No acute intracranial findings. Consider brain MRI if you suspectoccult process. All CT scans at this facility use dose modulation, iterativereconstruction, and/or weight based dosing when appropriate to reduceradiation dose to as low as reasonably achievable. Finalized by Nnamdi Amaro MD on 05/07/2024 2:42 PM us Gretchen Fraser MD IMG CT ORDERABLES Final Resul t * (ABNORMAL) Anti XA unfractionated heparin (05/07/2024 12:03 AM EDT) Heparin anti-xa, unfractionated <0.04(L) 0.30 - 0.70 IU/mL 05/08/2024 12:37 AM EDT [facility] Comment: Optimal time for testing is 6 hrs post dosage This test is specific for monitoring patients on UFH, and is not recommended for use with other Anti-Xa medications. PLASMA 05/07/2024 12:0 3 AM EDT 05/08/2024 12:23 AM EDT us Jaime Mora MD LAB BLOOD ORDERABLES Final Res ult [facility] [address] [place] [address] * (ABNORMAL) Sodium (05/07/2024 12:03 AM EDT) Sodium 126(L) 134 - 146 mmol/L 05/08/2024 1:08 AM EDT [facility] PLASMA 05/07/2024 12:0 3 AM EDT 05/08/2024 12:23 AM EDT Shayne Velasquez MD LAB BLOOD ORDERABLES Final Result [facility] [address], [address] [place] [address] from Last 3 Months Insurance [place] Member Subscriber Plan / Payer (Ef fective 2021-Present) Name:Alie Lowe Relation to Subscriber:Self Name:Alie Lowe Payer ID:Not on file Group ID:Not on file Type:Not on file Address: [place] [id number] [facility] MED[facility] [place]ID [place] Advance Directives * Full Code (Latest Code Status on File) Date Activated Date Inactivated Comments 05/08/2024 7:31 AM 05/18/2024 9:39 PM * Full Code Date Activated Date Inactivated Comments 05/07/2024 4:02 PM 05/07/2024 5:32 PM Care Teams Technical Instructor Relationship Specialty Start Date End Date [facility], [place] [id number] [place], [place] PCP - General Family Medicine 05/07/24
--- OUTSIDE RECORDS SUMMARY | 2024-07-15 11:51 | XMS_ITS | Encounter Summary ---
Author Organization [employer] Address [id number] [address] [place] [address] Care Team Providers Care Combine Mechanic Name Role Phone Services, [facility] Primary Care Provider Encounter Details Date Type Department Care Team ([facility] Contact Info) Description 10/14/2020 Telephone [facility] [address] [place] [address] Beatriz Ash, BIOMEDICAL TECHNICIAN-CATERING SERVER [address] [place], [place] [id number] Social History Tobacco Use Types Packs/Day Years [...] on file documented as of this encounter Miscellaneous Notes * Telephone Encounter - Jesusita Barros - 10/14/2020 10:09 AM EDT Patient called, said she has scabies, wants to cancel today's appointment. I asked patient how she knew it was scabies. She said that she has had it before in the past She wants to know if you can send some medicine in to [facility] in [place] for her Also, how long should I wait to reschedule her Medicare Wellness Exam * Telephone Encounter - MARCIAL Nicholson - 10/14/2020 10:09 AM EDT Sent cream to pharmacy, needs to reschedule next month documented in this encounter Plan of Treatment Upcoming Encounters Date Type Department Care Team (Late st Contact Info) Description 10/07/2024 3:15 PM EDT Office Visit [facility] [address] [place] [phone] Julianna Hdez MD [address] [place] [address] documented as of this encounter Visit Diagnoses Not on filedocumented in this encounter Additional Health Concerns Assessment Noted Time PHQ-9 Depression Total Score: 0 06/19/19 21 3:00 PM EDT A Body Mass Index follow-up plan has been documented for the patient 06/18/2020 4:09 PM EDT documented as of this encounter Care Teams Combine Mechanic Relationship Specialty Start Date End Date [facility], [facility] [address] [place], [place] PCP - General Family Medicine 05/07/24 documented as of this encounter
--- OUTSIDE RECORDS SUMMARY | 2024-07-15 11:51 | XMS_ITS | Encounter Summary ---
Author Organization [employer] Address [facility] [place][id number] [address] [place] [address] Care Team Providers Care Derrick Man Name Role Phone Services, [facility] Primary Care Provider Reason for Visit * Reason Onset Date Comments Med Refill 03/11/2021 Encounter Details Date Type Department Care Team ([facility] st Contact Info) Description 03/11/2021 Refill [facility] [address] [place] [address] Orquidea Cloud CMA Social History Tobacco Use Types Packs/Day Years [...] PM EST documented as of this encounter Miscellaneous Notes * Telephone Encounter - Orquidea Cloud CMA - 03/11/2021 4:21 PM EST Requesting refill of flexeril documented in this encounter Plan of Treatment Upcoming Encounters Date Type Department Care Team (Late st Contact Info) Description 10/07/2024 3:15 PM EDT Office Visit [facility] [address] [place] [phone] Julianna Hdez MD [address] [place] [address] documented as of this encounter Visit Diagnoses Not on filedocumented in this encounter Additional Health Concerns Assessment Noted Time PHQ-9 Depression Total Score: 3 11/04/19 21 2:00 PM EDT A Body Mass Index follow-up plan has been documented for the patient 06/18/2020 4:09 PM EDT documented as of this encounter Care Teams Derrick Man Relationship Specialty Start Date End Date Services, [facility] [address] [place], [place] PCP - General Family Medicine 05/07/24 documented as of this encounter
--- OUTSIDE RECORDS SUMMARY | 2024-07-15 11:52 | XMS_ITS | Encounter Summary ---
Author Organization [employer] Address [facility]-[id number] [address] [place] [address] Care Team Providers Care Health Lead Name Role Phone Services, [facility] Primary Care Provider Encounter Details Date Type Department Care Team ([facility] Contact Info) Description 07/09/2020 Telephone [facility] [address] [place] [address] Jayson Ríos CNA Social History Tobacco Use Types Packs/Day Years [...] have Coronavirus / COVID-19? No / Unsure 06/18/2020 2:49 PM EDT documented as of this encounter Miscellaneous Notes * Telephone Encounter - Jayson Ríos CMA - 07/09/2020 3:05 PM EDT Patient is requesting a refill of cyclobenzaprine to [facility], are you okay with refilling this? * Telephone Encounter - MARCIAL Nicholson - 07/09/2020 3:05 PM EDT That's fine documented in this encounter Plan of Treatment Upcoming Encounters Date Type Department Care Team (Late st Contact Info) Description 10/07/2024 3:15 PM EDT Office Visit [facility] [address] [place] [phone] Julianna Hdez MD [address] [place] [address] documented as of this encounter Visit Diagnoses Not on filedocumented in this encounter Additional Health Concerns Assessment Noted Time PHQ-9 Depression Total Score: 0 06/19/19 21 3:00 PM EDT A Body Mass Index follow-up plan has been documented for the patient 06/18/2020 4:09 PM EDT documented as of this encounter Care Teams Health Lead Relationship Specialty Start Date End Date Services, [facility] [address] [place], [place] PCP - General Family Medicine 05/07/24 documented as of this encounter
--- OUTSIDE RECORDS SUMMARY | 2024-07-15 11:52 | XMS_ITS | Encounter Summary ---
Author Organization [facility] [employer] Address [facility] [place]-[id number] [address] [place] [address] Care Team Providers Care Gelatin Dynamite Packing Operator Name Role Phone Services, [facility] Primary Care Provider Reason for Visit * Reason Onset Date Comments Med Refill 08/31/2020 Encounter Details Date Type Department Care Team ([facility] Contact Info) Description 08/31/2020 Refill [facility] [address] [place] [address] Deepti Alvares LPN Social History Tobacco Use Types Packs/Day Years [...] 1010/2017 PHQ-2 Answer Date Recorded Total Score 0 [...] Upcoming Encounters Date Type Department Care Team ([facility] Contact Info) Description 10/07/2024 3:15 PM EDT Office Visit [facility] [address] [facility] [address] [place] [address] Julianna Hdez MD [address] [place] [address] documented as of this encounter Visit Diagnoses Not on filedocumented in this encounter Additional Health Concerns Assessment Noted Time PHQ-9 Depression Total Score: 0 06/19/19 3:00 PM EDT A Body Mass Index follow-up plan has been documented for the patient 06/18/2020 4:09 PM EDT documented as of this encounter Care Teams Gelatin Dynamite Packing Operator Relationship Specialty Start Date End Date [facility], [facility] [address] [place], [place] PCP - General Family Medicine 05/07/24 documented as of this encounter
--- OUTSIDE RECORDS SUMMARY | 2024-07-15 11:52 | XMS_ITS | Encounter Summary ---
Author Organization [employer] Address [facility]-[id number] [address] [place] [address] Care Team Providers Care Correctional Supervisor Name Role Phone Services, [facility] Primary Care Provider Encounter Details Date Type Department Care Team ([facility] Contact Info) Description 01/16/2024 Telephone [facility] - Family Medicine [address] [place] [phone] Jalyn Bernal CMA Social History Tobacco Use Types Packs/Day [...] Answer Date Recorded Total Score 3 11/11/2021 Childcare Answer Date Recorded Childcare Unknown 07/20/2018 Employment Answer Date Recorded Employment Unknown 07/20/2018 Hunger Screening Answer Date Recorded Within the past 12 months we worried whether our food would run out before we got money to buy more. Never True 06/30/2022 Within the past 12 months th e food we bought just didn't last and we didn't have money to get more. Never True 06/30/2022 Purpose - Life Answer Date Recorded Purpose and direction in life Unknown Comments No Sex and Gender Information Value Date Recorded Sex Assigned at Not on file Legal Sex Female 9:44 PM EDT Gender Identity Not on file Sexual Orientation Not on file documented as of this encounter Miscellaneous Notes * Telephone Encounter - Jalyn Bernal CMA - 01/16/2024 12:12 PM EST This patient is asking if you would take her as a new patient? She is aware that it could be in [place] documented in this encounter Plan of Treatment Upcoming Encounters Date Type Department Care Team (Late st Contact Info) Description 10/07/2024 3:15 PM EDT Office Visit [facility] [address] [place] [address] Julianna Hdez MD [address] [place] [address] documented as of this encounter Visit Diagnoses Not on filedocumented in this encounter Additional Health Concerns Assessment Noted Time PHQ-9 Depression Total Score: 3 11/12/19 22 10:00 AM EDT A Body Mass Index follow-up plan has been documented for the patient 06/18/2020 4:09 PM EDT documented as of this encounter Care Teams Correctional Supervisor Relationship Specialty Start Date End Date Services, [facility] [address] [place], [place] PCP - General Family Medicine 05/07/24 documented as of this encounter
--- OUTSIDE RECORDS SUMMARY | 2024-07-15 11:52 | XMS_ITS | Encounter Summary ---
Author Organization [email or web address] Address [facility]-[id number] [address] [place] [address] Care Team Providers Care Whistle Punk Name Role Phone Services, [facility] Primary Care Provider Reason for Visit * Reason Comments Med Refill Encounter Details Date Type Department Care Team ([facility] Contact Info) Description 09/28/2022 Refill [facility] [address] [place] [address] Beatriz Ash APRN-PARACHUTE RIGGER [address] [place], [place] [phone] Social History Tobacco Use Types Packs/Day Years [...] [address] [place] [address] Julianna Hdez MD [address] [place] [address] documented as of this encounter Visit Diagnoses Not on filedocumented in this encounter Additional Health Concerns Assessment Noted Time PHQ-9 Depression Total Score: 3 11/12/19 22 10:00 AM EDT A Body Mass Index follow-up plan has been documented for the patient 06/18/2020 4:09 PM EDT documented as of this encounter Care Teams Whistle Punk Relationship Specialty Start Date End Date Services, [facility] [address] [place], [place] PCP - General Family Medicine 05/07/24 documented as of this encounter
--- OUTSIDE RECORDS SUMMARY | 2024-07-15 11:52 | XMS_ITS | Encounter Summary ---
Author Organization [employer] tem Address [facility] [id number] [address] [place] [address] Care Team Providers Care Shape Brick Molder Name Role Phone Services, [facility] Primary Care Provider Reason for Visit * Reason Comments Med Refill Encounter Details Date Type Department Care Team ([facility] Contact Info) Description 08/17/2022 Refill [facility] [address] [place] [address] Beatriz Ash APRN-CARD FEEDER [address] [place], [place] [phone] Social History Tobacco Use Types Packs/Day Years [...] [address] [place] [address] Julianna Hdez MD [address] [place] [address] documented as of this encounter Visit Diagnoses Not on filedocumented in this encounter Additional Health Concerns Assessment Noted Time PHQ-9 Depression Total Score: 3 11/12/19 22 10:00 AM EDT A Body Mass Index follow-up plan has been documented for the patient 06/18/2020 4:09 PM EDT documented as of this encounter Care Teams Shape Brick Molder Relationship Specialty Start Date End Date Services, [facility] [address] [place], [place] PCP - General Family Medicine 05/07/24 documented as of this encounter
--- OUTSIDE RECORDS SUMMARY | 2024-07-15 11:52 | XMS_ITS | Encounter Summary ---
Author Organization [facility] tem Address [facility] [id number] [address] [place] [address] Care Team Providers Care Trading Manager Name Role Phone Services, [facility] Primary Care Provider Reason for Visit * Reason Onset Date Comments Med Refill 07/29/2019 Encounter Details Date Type Department Care Team (Late st Contact Info) Description 07/29/2019 Refill [facility] [address] [place] [address] Naida Bahena RN Spondylosis of cervical region without myelopathy or radiculopathy Social History Tobacco Use Types Packs/Day Years Used Date Smoking Tobacco: Every Day Cigarettes Smokeless Tobacco: Never Alcohol Use Standard Drinks/Week Comments Yes 0 (1 standard drink = 0.6 oz pur e alcohol) once a week AUDIT-C Answer Date Recorded Frequency of Alcohol Consumption Never 11/21/2017 Average Number of Drinks Not on file 018 Frequency of Binge Drinking Not on file 10/2017 Childcare Answer Date Recorded Childcare Unknown 07/20/2018 Employment Answer Date Recorded Employment Unknown 07/20/2018 Comments No Sex and Gender Information Value Date Recorded Sex Assigned at Not on file Legal Sex Female 9:44 PM EDT Gender Identity Not on file Sexual Orientation Not on file COVID-19 Exposure Response Date Recorded In the last month, have you been in contact with someone who was confirmed or suspected to have Coronavirus / COVID-19? No / Unsure 07/31/2019 11:20 AM EDT documented as of this encounter Miscellaneous Notes * Telephone Encounter - Naida Bahena RN - 07/29/2019 12:38 PM EDT Last OV: 02/28/19 Next OV: not scheduled, No Show 07/21 procedure and follow up OARRS appropriate: Yes Last UDS: NA Pharmacy: [facility] Left message on patient's voicemail that she needs an appointment. Naida Bahena RN 07/29/19 1242 documented in this encounter Plan of Treatment Upcoming Encounters Date Type Department Care Team (Late st Contact Info) Description 10/07/2024 3:15 PM EDT Office Visit [facility] [address] [place] [phone] Julianna Hdez MD [address] [place] [address] documented as of this encounter Visit Diagnoses Diagnosis Spondylosis of cervical region without myelopathy or radiculopathy documented in this encounter Additional Health Concerns Infection Onset Date Last Indicated Resolved Time COVID-19 Positive 09/03/2019 09/03/2019 09/24/2019 11:12 PM EDT documented as of this encounter Care Teams Trading Manager Relationship Specialty Start Date End Date Services, [facility] [address] [place], [place] PCP - General Family Medicine 05/07/24 documented as of this encounter
--- OUTSIDE RECORDS SUMMARY | 2024-07-15 11:52 | XMS_ITS | Encounter Summary ---
Author Organization [employer] [facility] Limited[facility] centerYogiyo s tem Address [facility] [id number] [address] [place] [address] Care Team Providers Care Lather Apprentice Name Role Phone Services, [facility] Primary Care Provider Reason for Visit * Reason Comments Med Refill Encounter Details Date Type Department Care Team ([facility] st Contact Info) Description 10/31/2022 Refill [facility] [address] [place] [address] Mao San PA [address], [address] [place], [place] [phone] Spondylosis of cervical region without myelopathy or [...] Telephone Encounter - Naida Bahena RN - 10/31/2022 11:48 PM EDT Our clinic does not accept pharmacy refill requests. The patient must contact our office. [phone] documented in this encounter Plan of Treatment Upcoming Encounters Date Type Department Care Team (Late st Contact Info) Description 10/07/2024 3:15 PM EDT Office Visit [facility] [address] [place] [phone] Julianna Hdez MD [address] [place] [address] documented as of this encounter Visit Diagnoses Diagnosis Spondylosis of cervical region without myelopathy or radiculopathy documented in this encounter Additional Health Concerns Assessment Noted Time PHQ-9 Depression Total Score: 3 11/12/19 22 10:00 AM EDT A Body Mass Index follow-up plan has been documented for the patient 06/18/2020 4:09 PM EDT documented as of this encounter Care Teams Lather Apprentice Relationship Specialty Start Date End Date Services, [facility] [address] [place], [place] PCP - General Family Medicine 05/07/24 documented as of this encounter
--- OUTSIDE RECORDS SUMMARY | 2024-07-15 11:52 | XMS_ITS | Encounter Summary ---
Author Organization [employer] Address [facility] [place]-[id number] [address] [place] [address] Care Team Providers Care Pompom Maker Name Role Phone Services, [facility] Primary Care Provider Reason for Visit * Reason Comments Med Refill Encounter Details Date Type Department Care Team ([facility] Contact Info) Description 11/17/2020 Refill [facility] [address] [place] [address] Beatriz Ash, MIKAELA-FINANCIAL REPORTING DIRECTOR [address] [place], [place] [phone] Social History Tobacco Use Types Packs/Day Years [...] have Coronavirus / COVID-19? No / Unsure 11/03/2020 2:00 PM EDT documented as of this encounter Plan of Treatment Upcoming Encounters Date Type Department Care Team (Late st Contact Info) Description 10/07/2024 3:15 PM EDT Office Visit [facility] [address] [place] [phone] Julianna Hdez MD [address] [place] [address] documented as of this encounter Visit Diagnoses Not on filedocumented in this encounter Additional Health Concerns Assessment Noted Time PHQ-9 Depression Total Score: 3 11/04/19 2:00 PM EDT A Body Mass Index follow-up plan has been documented for the patient 06/18/2020 4:09 PM EDT documented as of this encounter Care Teams Pompom Maker Relationship Specialty Start Date End Date Services, [facility] [address] [place], [place] PCP - General Family Medicine 05/07/24 documented as of this encounter
--- OUTSIDE RECORDS SUMMARY | 2024-07-15 11:52 | XMS_ITS | Encounter Summary ---
Author Organization Pers[employer] Technologiesbibb medical centerThe Guild s tem Address [facility] [id number] [address] [place] [address] Care Team Providers Care Area Field Manager Name Role Phone Services, [facility] Primary Care Provider Reason for Visit * Reason Comments Med Refill Encounter Details Date Type Department Care Team ([facility] st Contact Info) Description 11/27/2022 Refill [facility] [address] [place] [address] Mao San PA [address], [address] [place], [place] [phone] Spondylosis of cervical region without myelopathy or [...] Telephone Encounter - Naida Bahena RN - 11/27/2022 4:30 AM EDT Our clinic does not accept pharmacy refill requests. The patient must contact our office. [phone] documented in this encounter Plan of Treatment Upcoming Encounters Date Type Department Care Team (Late st Contact Info) Description 10/07/2024 3:15 PM EDT Office Visit [facility] [address] [place] [phone] Julianna Hdez MD [address] [place] [address] documented as of this encounter Visit Diagnoses Diagnosis Spondylosis of cervical region without myelopathy or radiculopathy documented in this encounter Additional Health Concerns Assessment Noted Time PHQ-9 Depression Total Score: 3 11/12/19 22 10:00 AM EDT A Body Mass Index follow-up plan has been documented for the patient 06/18/2020 4:09 PM EDT documented as of this encounter Care Teams Area Field Manager Relationship Specialty Start Date End Date Services, [facility] [address] [place], [place] PCP - General Family Medicine 05/07/24 documented as of this encounter
--- OUTSIDE RECORDS SUMMARY | 2024-07-15 11:52 | XMS_ITS | Encounter Summary ---
Author Organization [facility] Center[facility]eneca Worldwide Sys tem Address [facility] [id number] [address] [place] [address] Care Team Providers Care Tie Cutter Name Role Phone Services, [facility] Primary Care Provider Encounter Details Date Type Department Care Team ([facility] Contact Info) Description 05/13/2020 Orders Only [facility] [address] [place] [address] Beatriz Ash, SHORT GOODS DRIER-UNDERWRITER SOLICITATION DIRECTOR [address] [place], [place] [phone] Social History Tobacco Use Types Packs/Day Years [...] have Coronavirus / COVID-19? No / Unsure 04/20/2020 8:50 AM EST documented as of this encounter Plan of Treatment Upcoming Encounters Date Type Department Care Team (Late st Contact Info) Description 10/07/2024 3:15 PM EDT Office Visit [facility] [address] [place] [phone] Julianna Hdez MD [address] [place] [address] documented as of this encounter Visit Diagnoses Not on filedocumented in this encounter Care Teams Tie Cutter Relationship Specialty Start Date End Date [facility], [facility] [address] [place], [place] PCP - General Family Medicine 05/07/24 documented as of this encounter
--- OUTSIDE RECORDS SUMMARY | 2024-07-15 11:52 | XMS_ITS | Encounter Summary ---
Author Organization [facility] tem Address [facility] [id number] [address] [place] [address] Care Team Providers Care Patroller Name Role Phone Services, [facility] Primary Care Provider Encounter Details Date Type Department Care Team ([facility] Contact Info) Description 06/10/2022 Orders Only [facility] [address] [place] [address] Beatriz Ash, TREATING AND PUMPING SUPERVISOR-POT FEEDER [address] [place], [place] [phone] Social History Tobacco Use Types Packs/Day Years [...] Upcoming Encounters Date Type Department Care Team ([facility] Contact Info) Description 10/07/2024 3:15 PM EDT Office Visit [facility] [address] [facility] 1 [place] [address] Julianna Hdez MD [address] [place] [address] documented as of this encounter Visit Diagnoses Not on filedocumented in this encounter Additional Health Concerns Assessment Noted Time PHQ-9 Depression Total Score: 3 11/12/19 22 10:00 AM EDT A Body Mass Index follow-up plan has been documented for the patient 06/18/2020 4:09 PM EDT documented as of this encounter Care Teams Patroller Relationship Specialty Start Date End Date Services, [facility] [address] [place], [place] PCP - General Family Medicine 05/07/24 documented as of this encounter
--- OUTSIDE RECORDS SUMMARY | 2024-07-15 11:52 | XMS_ITS | Encounter Summary ---
Author Organization [facility] hospitalNewGalex[facility] tem Address [id number] [address] [place] [address] Care Team Providers Care Trestle Mechanic Name Role Phone Services, [facility] Primary Care Provider Reason for Visit * Reason Comments Med Refill Encounter Details Date Type Department Care Team ([facility] st Contact Info) Description 07/07/2019 Refill [facility] [address] [place] [address] Mao San PA [address], [address] [place], [place] [phone] Spondylosis of cervical region without myelopathy or [...] have Coronavirus / COVID-19? No / Unsure 07/10/2019 12:11 PM EDT documented as of this encounter Miscellaneous Notes * Telephone Encounter - Naida Bahena RN - 07/07/2019 8:29 AM EDT We do not accept medication refill requests from pharmacies. Patient needs to request refill. documented in this encounter Plan of Treatment Upcoming Encounters Date Type Department Care Team (Late st Contact Info) Description 10/07/2024 3:15 PM EDT Office Visit [facility] [address] [place] [address] Julianna Hdez MD [address] [place] [address] documented as of this encounter Visit Diagnoses Diagnosis Spondylosis of cervical region without myelopathy or radiculopathy documented in this encounter Additional Health Concerns Infection Onset Date Last Indicated Resolved Time COVID-19 Positive 09/03/2019 09/03/2019 09/24/2019 11:12 PM EDT documented as of this encounter Care Teams Trestle Mechanic Relationship Specialty Start Date End Date Services, [facility] [address] [place], [place] PCP - General Family Medicine 05/07/24 documented as of this encounter
--- OUTSIDE RECORDS SUMMARY | 2024-07-15 11:52 | XMS_ITS | Encounter Summary ---
Author Organization [employer] Address [id number] [address] [place] [address] Care Team Providers Care Box Cutter Name Role Phone Services, [facility] Primary Care Provider Reason for Visit * Reason Comments Med Refill Encounter Details Date Type Department Care Team ([facility] Contact Info) Description 06/09/2022 Refill [facility] [address] [place] [address] Beatriz Ash, [facility] [address] [place], [place] [phone] Social History Tobacco Use Types Packs/Day Years [...] Upcoming Encounters Date Type Department Care Team ([facility] Contact Info) Description 10/07/2024 3:15 PM EDT Office Visit [facility] [address] [place] [address] Julianna Hdez MD [address] [place] [address] documented as of this encounter Visit Diagnoses Not on filedocumented in this encounter Additional Health Concerns Assessment Noted Time PHQ-9 Depression Total Score: 3 11/12/19 22 10:00 AM EDT A Body Mass Index follow-up plan has been documented for the patient 06/18/2020 4:09 PM EDT documented as of this encounter Care Teams Box Cutter Relationship Specialty Start Date End Date Services, [facility] [address] [place], [place] PCP - General Family Medicine 05/07/24 documented as of this encounter
--- OUTSIDE RECORDS SUMMARY | 2024-07-15 11:52 | XMS_ITS | Encounter Summary ---
Author Organization [employer] Socialthomas[facility] regional medical centerSellrBuyr Free [employer] [facility] tem Address [facility] [place][id number] [address] [place] [address] Care Team Providers Care Kindergarten Prep Teacher Name Role Phone Services, [facility] Primary Care Provider Reason for Visit * Reason Comments Med Refill Encounter Details Date Type Department Care Team ([facility] st Contact Info) Description 12/03/2018 Refill [facility] [address] [place] [address] Mao San PA [address], [address] [place], [place] [phone] Spondylosis of cervical region without myelopathy or radiculopathy Social History Tobacco Use Types Packs/Day Years Used Date Smoking Tobacco: Every Day Cigarettes Smokeless Tobacco: Never Alcohol Use Standard Drinks/Week Comments No 0 (1 standard drink = 0.6 oz [...] Telephone Encounter - Naida Bahena RN - 12/03/2018 11:03 PM EDT We do not accept medication refill requests from pharmacies. Patient needs to request refill. documented in this encounter Plan of Treatment Upcoming Encounters Date Type Department Care Team (Late st Contact Info) Description 10/07/2024 3:15 PM EDT Office Visit [facility] [address] [place] [address] Julianna Hdez MD [address] [place] [address] documented as of this encounter Visit Diagnoses Diagnosis Spondylosis of cervical region without myelopathy or radiculopathy documented in this encounter Additional Health Concerns Infection Onset Date Last Indicated Resolved Time COVID-19 Positive 09/03/2019 09/03/2019 09/24/2019 11:12 PM EDT documented as of this encounter Care Teams Kindergarten Prep Teacher Relationship Specialty Start Date End Date Services, [facility] [address] [place], [place] PCP - General Family Medicine 05/07/24 documented as of this encounter
--- OUTSIDE RECORDS SUMMARY | 2024-07-15 11:52 | XMS_ITS | Encounter Summary ---
Author Organization [facility] [facility] tem Address [facility] [id number] [address] [place] [address] Care Team Providers Care Health Services Information Specialist Name Role Phone Services, [facility] Primary Care Provider Reason for Visit * Reason Onset Date Comments Med Refill 07/30/2019 Encounter Details Date Type Department Care Team ([facility] Contact Info) Description 07/30/2019 Refill [facility] [address] [place] [address] Ceci Day RN Social History Tobacco Use Types Packs/Day Years [...] AM EDT documented as of this encounter Plan of Treatment Upcoming Encounters Date Type Department Care Team ([facility] Contact Info) Description 10/07/2024 3:15 PM EDT Office Visit [facility] [address] [phone] Julianna Hdez MD [address] [place] [address] documented as of this encounter Visit Diagnoses Not on filedocumented in this encounter Additional Health Concerns Infection Onset Date Last Indicated Resolved Time COVID-19 Positive 09/03/2019 09/03/2019 09/24/2019 11:12 PM EDT documented as of this encounter Care Teams Health Services Information Specialist Relationship Specialty Start Date End Date Services, [facility] [address] [place], [place] PCP - General Family Medicine 05/07/24 documented as of this encounter
--- OUTSIDE RECORDS SUMMARY | 2024-07-15 11:52 | XMS_ITS | Encounter Summary ---
Author Organization [facility] Center[facility] tem Address [facility] [place][id number] [address] [place] [address] Care Team Providers Care 3D Animator Name Role Phone Services, [facility] Primary Care Provider Reason for Visit * Reason Onset Date Comments Med Refill 02/26/2019 Encounter Details Date Type Department Care Team (Late Contact Info) Description 02/26/2019 Refill [facility] - [facility] [address] [place] [address] Ceci Day, DONTE Spondylosis of cervical region without myelopathy or [...] Encounters Date Type Department Care Team (Late Contact Info) Description 10/07/2024 3:15 PM EDT Office Visit [facility] [address] [facility] 1 [place] [address] Julianna Hdez MD [address] [place] [address] documented as of this encounter Visit Diagnoses Diagnosis Spondylosis of cervical region without myelopathy or radiculopathy documented in this encounter Additional Health Concerns Infection Onset Date Last Indicated Resolved Time COVID-19 Positive 09/03/2019 09/03/2019 09/24/2019 11:12 PM EDT documented as of this encounter Care Teams 3D Animator Relationship Specialty Start Date End Date [facility], [facility] [address] [place] [address] PCP - General Family Medicine 05/07/24 documented as of this encounter
--- OUTSIDE RECORDS SUMMARY | 2024-07-15 11:52 | XMS_ITS | Encounter Summary ---
Author Organization [employer] tem Address [facility] [place][id number] [address] [place] [address] Care Team Providers Care Manufacturing Engineer Automotive Name Role Phone Services, [facility] Primary Care Provider Reason for Visit * Reason Comments Med Refill Encounter Details Date Type Department Care Team ([facility] Contact Info) Description 07/09/2022 Refill [facility] [address] [place] [address] Beatriz Ash APRN-FABRICATING MACHINE OPERATOR [address] [place], [place] [phone] Social History Tobacco Use Types Packs/Day Years [...] [address] [place] [address] Julianna Hdez MD [address] [place] [address] documented as of this encounter Visit Diagnoses Not on filedocumented in this encounter Additional Health Concerns Assessment Noted Time PHQ-9 Depression Total Score: 3 11/12/19 22 10:00 AM EDT A Body Mass Index follow-up plan has been documented for the patient 06/18/2020 4:09 PM EDT documented as of this encounter Care Teams Manufacturing Engineer Automotive Relationship Specialty Start Date End Date Services, [facility] [address] [place], [place] PCP - General Family Medicine 05/07/24 documented as of this encounter
--- OUTSIDE RECORDS SUMMARY | 2024-07-15 11:52 | XMS_ITS | Encounter Summary ---
Author Organization [employer] [facility] tem Address [facility] [id number] [address] [place] [address] Care Team Providers Care Screw Supervisor Name Role Phone Services, [facility] Primary Care Provider Reason for Visit * Reason Comments Med Refill Encounter Details Date Type Department Care Team ([facility] st Contact Info) Description 03/12/2020 Refill [facility] - [facility] [address] [place] [address] Mao San PA [address], [address] [place], [place] [phone] Spondylosis of cervical region without myelopathy or [...] Telephone Encounter - Naida Bahena RN - 03/12/2020 12:22 AM EST Our clinic does not accept pharmacy refill requests. The patient must contact our office. [phone] documented in this encounter Plan of Treatment Upcoming Encounters Date Type Department Care Team (Late st Contact Info) Description 10/07/2024 3:15 PM EDT Office Visit [facility] [address] [place] [phone] Julianna Hdez MD [address] [place] [address] documented as of this encounter Visit Diagnoses Diagnosis Spondylosis of cervical region without myelopathy or radiculopathy documented in this encounter Care Teams Screw Supervisor Relationship Specialty Start Date End Date Services, [facility] [address] [place], [place] PCP - General Family Medicine 05/07/24 documented as of this encounter
--- OUTSIDE RECORDS SUMMARY | 2024-07-15 11:52 | XMS_ITS | Encounter Summary ---
Author Organization [facility] tem Address [id number] [address] [place] [address] Care Team Providers Care Brazing Machine Operator Helper Name Role Phone Services, [facility] Primary Care Provider Reason for Visit * Reason Comments Med Refill Encounter Details Date Type Department Care Team ([facility] st Contact Info) Description 11/16/2018 Refill [facility] [address] [place] [address] Mao San PA [address] [place], [place] [phone] Spondylosis of cervical region without myelopathy or [...] Telephone Encounter - Naida Bahena RN - 11/16/2018 1:27 AM EDT We do not accept medication refill requests from pharmacies. Patient needs to request refill. documented in this encounter Plan of Treatment Upcoming Encounters Date Type Department Care Team (Late st Contact Info) Description 10/07/2024 3:15 PM EDT Office Visit [facility] [address] [place] [address] Julianna Hdez MD [address] [place] [address] documented as of this encounter Visit Diagnoses Diagnosis Spondylosis of cervical region without myelopathy or radiculopathy documented in this encounter Additional Health Concerns Infection Onset Date Last Indicated Resolved Time COVID-19 Positive 09/03/2019 09/03/2019 09/24/2019 11:12 PM EDT documented as of this encounter Care Teams Brazing Machine Operator Helper Relationship Specialty Start Date End Date Services, [facility] [address] [place], [place] PCP - General Family Medicine 05/07/24 documented as of this encounter
--- OUTSIDE RECORDS SUMMARY | 2024-07-15 11:52 | XMS_ITS | Encounter Summary ---
Author Organization [facility] [employer] [facility] tem Address [id number] [address] [place] [address] Care Team Providers Care Securities Vault Supervisor Name Role Phone Services, [facility] Primary Care Provider Reason for Visit * Reason Onset Date Comments Med Refill 05/15/2019 Encounter Details Date Type Department Care Team (Late st Contact Info) Description 05/15/2019 Refill [facility] [address] [place] [address] Naida Bahena, DONTE Spondylosis of cervical region without myelopathy [...] Telephone Encounter - Naida Bahena RN - 05/15/2019 1:05 PM EDT Last OV: 02/28/19 Next OV: waiting to have procedure OARRS appropriate: Yes Last UDS: NA Pharmacy: RHODA Bahena RN 05/15/19 1307 documented in this encounter Plan of Treatment Upcoming Encounters Date Type Department Care Team (Late st Contact Info) Description 10/07/2024 3:15 PM EDT Office Visit [facility] [address] [place] [address] Julianna Hdez MD [address] [place] [address] documented as of this encounter Visit Diagnoses Diagnosis Spondylosis of cervical region without myelopathy or radiculopathy documented in this encounter Additional Health Concerns Infection Onset Date Last Indicated Resolved Time COVID-19 Positive 09/03/2019 09/03/2019 09/24/2019 11:12 PM EDT documented as of this encounter Care Teams Securities Vault Supervisor Relationship Specialty Start Date End Date Services, [facility] [address] [place], [place] PCP - General Family Medicine 05/07/24 documented as of this encounter
--- OUTSIDE RECORDS SUMMARY | 2024-07-15 11:52 | XMS_ITS | Encounter Summary ---
Author Organization [facility] tem Address [id number] [address] [place] [address] Care Team Providers Care Manager Hematology Name Role Phone Services, [facility] Primary Care Provider Reason for Visit * Reason Comments Med Refill Encounter Details Date Type Department Care Team ([facility] Contact Info) Description 05/28/2022 Refill [facility] [address] [place] [address] Mao San PA [address] [place], [place] [phone] Spondylosis of cervical region without myelopathy or [...] Upcoming Encounters Date Type Department Care Team ([facility] Contact Info) Description 10/07/2024 3:15 PM EDT Office Visit [facility] [address] [place] [phone] Julianna Hdez MD [address] [place] [address] documented as of this encounter Visit Diagnoses Diagnosis Spondylosis of cervical region without myelopathy or radiculopathy documented in this encounter Additional Health Concerns Assessment Noted Time PHQ-9 Depression Total Score: 3 11/12/19 22 10:00 AM EDT A Body Mass Index follow-up plan has been documented for the patient 06/18/2020 4:09 PM EDT documented as of this encounter Care Teams Manager Hematology Relationship Specialty Start Date End Date Services, [facility] [address] [place], [place] PCP - General Family Medicine 05/07/24 documented as of this encounter
[2024-07-15 12:48] VITALS: BP 96/62; PULSE 72; TEMP 36.7; O2SAT 98
[2024-07-15 12:59] VITALS: BP 116/59; BP 121/56; PULSE 66; PULSE 70; O2SAT 100
[2024-07-15] MEDS: BUPIVACAINE HCL 0.25% PF 25 MG/10 ML VIAL 8 ML INJ (13:00)
[2024-07-15] MEDS: LIDOCAINE HCL 2% 400 MG/20 ML MDV INJ (13:01)
--- NOTE | 2024-07-15 13:04 | W.PM.PROCNOT ---
Date of procedure: 07/15/24 Pre-op diagnosis: Pain due to cervical spondylosis without myelopathy Post-op diagnosis: same as pre-op Procedure: Procedure: Bilateral C5-6, 6-7 medial branch block Medications: Bupivacaine 0.25% 6cc The patient was seen and examined in the preoperative holding area.? The informed consent was obtained and placed on the chart.? The patient was brought to the medical procedure unit and placed in the prone position.? A timeout was completed verifying correct patient, procedure site, positioning, plan, and special equipment.? Using aseptic technique, the needle was placed at left C5.? Under direct fluoroscopic visualization, a Quincke tip needle was advanced to the midpoint of the waist of the articular pillar at the respective medial branch segment. The above-mentioned injectate was placed in a 1 mL aliquot proceeded by negative aspiration.? The needle was removed.? The procedure was completed at all left C6, 7. The same procedure, at the same levels, was then completed on the right side. Insertion site was covered.? Patient was taken to the postprocedural recovery area and monitored for an appropriate length of time before found suitable for discharge in the accompaniment of a responsible adult. Anesthesia: Local Surgeon: Alexander Mayers Pathology: none sent Condition: stable Disposition: no change
== END 2024-07-15 13:09 | disposition home or self-care (01) ==
LOC: SURGOUT 11:49
PROVIDERS: Visit Provider Anesthesiology
DX: M54.2 Cervicalgia (principal); M47.812 Spondylosis without myelopathy or radiculopathy, cervical region
CPT/HCPCS: 64490; 64491; J0665

== ENCOUNTER 2024-07-22 06:59 | Outpatient (RCR) | payer MEDICARE, MEDICAID, SELFPAY ==
--- NOTE | 2024-07-17 10:36 | CR1_ITS ---
[facility] Test Date: 2024-07-17 Pat Name: MARILIA FULLER Department: Room: - Gender: Female Log Snaker: : 1960 Requested By: Tommy Raymundo Order Number: [id number] Reading MD: Tommy Raymundo Interpretive Statements Okay to proceed with outlined treatment plan. Electronically Signed On 07-17-2024 16:35:34 EDT by Tommy Raymundo
--- NOTE | 2024-08-12 14:18 | CR1_ITS ---
[facility] Test Date: 2024-08-12 Pat Name: MARILIA FULLER Department: Room: - Gender: Female Loom Inspector: : 1960 Requested By: Tommy Raymundo Order Number: [id number] Reading MD: Tommy Raymundo Interpretive Statements With a history of an EF of 20%, it is strongly recommended that the patient actually make an attempt to participate in pulmonary rehabilitation, especially as a goal is to have the life vest removed. Electronically Signed On 08-21-2024 10:03:13 EDT by Tommy Raymundo
--- NOTE | 2024-08-19 10:05 | PC.NURSE ---
outreached patient to schedule first session of cardiac rehab. voicemail left to have patient return call
--- NOTE | 2024-08-19 10:07 | PC.NURSE ---
spoke with sister miguelangel, pt moved back home and is having difficulty gettting rides. they are going to work on arranging TRIPS to get her to her appointments here on a regular basis and will call us back
== END 2024-09-12 08:36 | disposition home or self-care (01) ==
LOC: CR 06:59
DX: I25.10 Atherosclerotic heart disease of native coronary artery without angina pectoris (principal)

== ENCOUNTER 2024-08-07 15:08 | Outpatient (OUT) | payer MEDICARE, MEDICAID, SELFPAY ==
--- OUTSIDE RECORDS SUMMARY | 2024-05-27 09:45 | XMS_ITS ---
Author Organization [facility] vices Address [address], [place] [id number] Care Team Providers Care Admission Discharge Rn Name Role Phone Mere Monteiro Primary Care Provider REASON FOR VISIT SD d/c 05/23 [place] - Heart Attack Social History Sex Assigned At : Social History Observation Description Sex Assigned At Female Encounters Encounter Location Date Provider Diagnosis Main [address] [place] [id number] 05/27/2024 Mere Monteiro Plan Of Treatment Next Appt Details Provider Name:Mere Monteiro, 12/26/2024 02:30:00 PM, [address] [place], [place], [id number], Provider Name:Mere Monteiro, 02/04/2025 01:15:00 PM, [address] [place], [place], [id number], Progress Notes * Alie AJ LDOB: 1960 (63 yo F)Acc No.[id number]:05/27/2024 Medical Note Patient: Shira Alie KURTZ Provider: Danny Monteiro MD :1960 A ge:63 Y S ex:Female Date:05/27/2024 Address:[address] [place] [address], [address], [place], [id number] Subjective: * Chief Complaints: * 1 . NH d/c 05/23 [place] - Heart Attack. * Medical History: Objective: * Vitals: Assessment: Plan: * Treatment: * Billing Information: * Visit Code: * Procedure Codes: * Electronic signature of Pema Monteiro MD on 08/07/2024 at 03:11 PM EDT Sign off status: Pending * Provider: Danny Monteiro MD Date: 0 05/27/2024 Generated for Ivy lam/Trae/Moreitting on: 0 08/07/2024 03:11 PM EDT
--- OUTSIDE RECORDS SUMMARY | 2024-08-05 10:00 | XMS_ITS ---
Author Organization [facility] vices Address [address] [place], [place] [id number] Care Team Providers Care Thermodynamics Engineer Name Role Phone Mere Monteiro Primary Care Provider [phone] Allergies Allergen (clinical drug ingredient) Drug/Non Drug [...] Date Provider Diagnosis Main [address] [place], [place] [id number] 08/05/2024 Mere Cayetano Mixed hyperlipidemia E78.2 ; [...] Monteiro, 12/26/2024 02:30:00 PM, [address] [place], [id number], Provider Name:Mere Monteiro, 02/04/2025 01:15:00 PM, [address] [place], [id number], Progress Notes * Alie AJ LDOB: 1960 (63 yo F)Acc No.[id number]:08/05/2024 Medical Note Patient: Shira STEWARD Alie FULLER Provider: Danny Monteiro MD :1960 A ge:63 Y S ex:Female Date:08/05/2024 Address:[address] [place] [address], [address] Subjective: * Chief Complaints: * 3 [...] Modifiers: QW 3078F HTN DIAST BP < 751419X DM HG A1C < 87044L HTN SYST BP < 130 * Follow Up: W WE per pt feasibility (Reason: 6 months PreDM and HLD) * Billing Information: * Visit Code: 94908 Office Visit Est 30-39 minutes. * Procedure Codes: 11573 GLYCATED HEMOGLOBIN TEST. Modifiers: QW 3078F HTN DIAST BP < 80. 3044F DM HG A1C < 7. 3074F HTN SYST BP < 130. * Sign off status: Completed true * Provider: Danny Monteiro MD Date: 08/05/2024 Generated for Ivy lam/Trae/eTransmitting on: 08/07/2024 03:10 PM EDT History and Physical Notes * Examination [...]
--- OUTSIDE RECORDS SUMMARY | 2024-08-07 15:10 | XMS_ITS | Encounter Summary ---
Author Organization [employer] tem Address [id number]-[id number] [address] [place] [address] Care Team Providers Care Chief Hydroelectric Station Operator Name Role Phone Services, [facility] Primary Care Provider Encounter Details Date Type Department Care Team ([facility] Contact Info) Description 08/04/2021 Orders Only [facility] [address] [place] [address] Beatriz Ash, AVIONICS TEST TECHNICIAN-CERTIFIED PERSONAL CHEF [address] [place], [place] [phone] Social History Tobacco Use Types Packs/Day Years [...] [address] [place] [phone] Julianna Hdez MD [address] [place] [address] documented as of this encounter Visit Diagnoses Not on filedocumented in this encounter Additional Health Concerns Assessment Noted Time PHQ-9 Depression Total Score: 3 11/04/19 21 2:00 PM EDT A Body Mass Index follow-up plan has been documented for the patient 06/18/2020 4:09 PM EDT documented as of this encounter Care Teams Chief Hydroelectric Station Operator Relationship Specialty Start Date End Date Services, [facility] [address] [place] PCP - General Family Medicine 05/07/24 documented as of this encounter
--- OUTSIDE RECORDS SUMMARY | 2024-08-07 15:11 | XMS_ITS | Encounter Summary ---
Author Organization [employer] tem Address [id number] [address] [place] [address] Care Team Providers Care Correctional Casework Specialist Name Role Phone Services, [facility] Primary Care Provider Encounter Details Date Type Department Care Team ([facility] Contact Info) Description 03/04/2021 Orders Only [facility] [address] [place] [address] Beatriz Ash, PURCHASING CONTRACTING CLERK-EXIT BOOTH AGENT [address] [place], [place] [phone] Social History Tobacco Use Types Packs/Day Years [...] [address] [place] [address] Julianna Hdez MD [address] [place] [address] documented as of this encounter Visit Diagnoses Not on filedocumented in this encounter Additional Health Concerns Assessment Noted Time PHQ-9 Depression Total Score: 3 11/04/19 21 2:00 PM EDT A Body Mass Index follow-up plan has been documented for the patient 06/18/2020 4:09 PM EDT documented as of this encounter Care Teams Correctional Casework Specialist Relationship Specialty Start Date End Date Services, [facility] [address] [place], [place] PCP - General Family Medicine 05/07/24 documented as of this encounter
--- OUTSIDE RECORDS SUMMARY | 2024-08-07 15:11 | XMS_ITS | Encounter Summary ---
Author Organization [employer] Address [id number] [address] [place] [address] Care Team Providers Care Surface Water Manager Name Role Phone Services, [facility] Primary Care Provider Encounter Details Date Type Department Care Team ([facility] Contact Info) Description 10/14/2020 Telephone [facility] [address] [place] [address] Beatriz Ash, GOLF BALL WINDER-PAINTING MACHINE OPERATOR [address] [place], [place] [phone] Social History Tobacco Use Types Packs/Day Years [...] you can send some medicine in to [facility] in [place] for her Also, how long should I [...] [address] [place] [phone] Julianna Hdez MD [address] [place] [address] documented as of this encounter Visit Diagnoses Not on filedocumented in this encounter Additional Health Concerns Assessment Noted Time PHQ-9 Depression Total Score: 0 06/19/19 21 3:00 PM EDT A Body Mass Index follow-up plan has been documented for the patient 06/18/2020 4:09 PM EDT documented as of this encounter Care Teams Surface Water Manager Relationship Specialty Start Date End Date [facility], [facility] [address] [place], [place] PCP - General Family Medicine 05/07/24 documented as of this encounter
--- OUTSIDE RECORDS SUMMARY | 2024-08-07 15:11 | XMS_ITS | Encounter Summary ---
Author Organization [employer] Address [id number] [address] [place] [address] Care Team Providers Care Control Board Operator Name Role Phone Services, [facility] Primary Care Provider Reason for Visit * Reason Comments Med Refill Encounter Details Date Type Department Care Team ([facility] Contact Info) Description 09/09/2020 Refill [facility] [address] [place] [address] Igor Holliday MD [address] Provider retired 05/14/24 [place], [place] [id number] Social History Tobacco Use Types Packs/Day Years [...] Upcoming Encounters Date Type Department Care Team ([facility] Contact Info) Description 10/07/2024 3:15 PM EDT Office Visit [facility] [address] [place] [address] Julianna Hdez MD [address] [place] [address] documented as of this encounter Visit Diagnoses Not on filedocumented in this encounter Additional Health Concerns Assessment Noted Time PHQ-9 Depression Total Score: 0 06/19/19 21 3:00 PM EDT A Body Mass Index follow-up plan has been documented for the patient 06/18/2020 4:09 PM EDT documented as of this encounter Care Teams Control Board Operator Relationship Specialty Start Date End Date Services, [facility] [address] [place], [place] PCP - General Family Medicine 05/07/24 documented as of this encounter
--- OUTSIDE RECORDS SUMMARY | 2024-08-07 15:11 | XMS_ITS | Clinical Summary ---
Author Organization [employer] tem Address [id number] [address] 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 90 tablet 3 06/18/19 Active valsartan (DIOVAN) 40 mg tablet Take 1 tablet (40 mg total) by mouth in the morning and 1 tablet (40 mg total) before bedtime. 90 tablet 3 06/18/19 Active metoprolol succinate XL (TOPROL XL) 25 [...] tobacco product 100 each 3 06/18/19 Active Active Problems Problem Noted Date Diagnosed Date Chronic systolic heart failure 06/17/2024 Mixed hyperlipidemia 05/11/2024 CHB (complete heart block) 05/07/2024 ST elevation myocardial infarction (STEMI) 05/07 Coronary artery disease invo lving hopland coronary artery of hopland heart 05/07/2024 Osteoarthritis of cervical spine 03/14/2018 Overview (03/14/2018): Added automatically from request for surgery [id number] Cervical spondylosis without myelopathy 11/04/19 18 HTN (hypertension) Encounters Date Type Department Care Team Description 06/17/2024 3:00 PM EDT Ancillary Procedure [facility] [address] [place] [phone] Teagan Carrillo PA-C Complete heart block ([facility]) 06/17/2024 2:00 PM EDT Office Visit [facility] [address] [place] [phone] Teagan Carrillo PA-C Coronary artery disease involving hopland coronary artery of hopland heart without angina pectoris (Primary Dx); Hypertension, unspecified type; Mixed hyperlipidemia; Chronic systolic heart failure (CMS-HCC); Complete heart block (CMS-HCC); Continuous tobacco abuse 06/17/2024 Telephone [facility] [address] [place] [address] Monica Sharif RN Life Vest issue 06/17/2024 Travel 06/14/2024 Telephone [facility] [address] [place] [address] Juana Eden CMA 05/30/2024 Abstract [facility] [address] [place] [phone] External, Scanning Provider 05/21/2024 Telephone [facility], A Department of [facility] [address] [place] [phone] Kristen Lainez New Patient 05/09/2024 3:38 PM EDT - 05/09/2024 4:38 PM EDT Surgery [facility] - Cardiac Cath [address] [place] [phone] Gilberto Zepeda MD Percutaneous coronary intervention of OM 05/08/2024 Telephone [facility] [address] [place] [phone] Gilberto Zepeda MD s/p CATH/PCI 05/07/2024 5:00 PM EDT - 05/07/2024 6:00 PM EDT Surgery [facility] - Cardiac Cath [address] [place] [phone] Gilberto Zepeda MD Percutaneous coronary intervention 05/07/2024 3:54 PM EDT - 05/18/2024 7:38 PM EDT Hospital Encounter [facility] [address] Acute [address] [place] [address] Maya Zavala MD Oostra, Carson E, MD Shah, Ivette Fay, MD Mix, MD Franklyn Bella Kanchan M, MD ST elevation myocardial infarction involving left anterior descending (LAD) coronary artery ([facility]) (Primary Dx); ST elevation myocardial infarction (STEMI), unspecified artery (CMS-HCC); CHB (complete heart block) ([facility]); Coronary artery disease involving hopland coronary artery of hopland heart, unspecified whether angina present; Altered mental status, unspecified altered mental status type Discharge Disposition: Penitentiary Facility-Medicare Cert 05/07/2024 1:45 PM EDT - 05/07/2024 3:27 PM EDT Emergency [facility] - Emergency [address] [place] [address] Gretchen Fraser MD Complete heart block ([facility]) (Primary Dx); Syncope, unspecified syncope type; Fall, initial encounter Discharge Disposition: Another Hospital 05/07/2024 Telephone [facility] Call Center [address] [place] [address] Shaniqua Montoya Order clarification 05/07/2024 Travel from [...] drink = 0.6 oz pur e alcohol) [facility] Utilities Answer Date Recorded In the past 12 months has [employer], gas, oil, or water [employer] threatened to shut off services in your [...] Description 10/07/2024 3:15 PM EDT Office Visit [facility] [address] [place] [address] Julianna Hdez MD [address] [place] [address] Health Maintenance Due Date Last Done Comments [...] safe discharge. Medical Devices Implanted Type Area Clinical Informatics Strategist Device Identifier Shelf Expiration Date Model / Serial / Lot System Cor Stnt 2.75mm X 48mm 144cm Synergy Xd Mnrl Sean Pltn - [id number] Implanted:Qty : 1 on 05/07/2024 by Gilberto Zepeda MD at [facility] Stent N/A: Arterial [employer] [id number] 09/25/2025 [id number] / / [id number] System Cor Stnt 2.25mm X 15mm 145cm Xience Skypnt Mtlnk Sean - [id number] Implanted:Qty : 1 on 05/09/2024 by Gilberto Zepeda MD at [facility] Stent N/A: Arterial KINNEY [id number] 02/26/2026 [id number] Procedures Procedure Name Priority Date/Time Associated Diagnosis [...] 4:18 PM EDT Coronary artery disease involving hopland coronary artery of hopland heart, unspecified whether angina present CARDIAC INVASIVE Routine 05/09/2024 4:18 PM EDT Coronary artery disease involving hopland coronary artery of hopland heart, unspecified whether angina present CARDIAC INVASIVE Routine 05/09/2024 4:18 PM EDT Coronary artery disease involving hopland coronary artery of hopland heart, unspecified whether angina present IONIZED MAGNESIUM [...] - 4.9 mg/dL 05/18/2024 6:39 AM EDT [facility] 05/18/2024 5:19 AM EDT 05/18/2024 5:20 AM EDT Alfa Gregory MD LAB BLOOD ORDERABLES Final Resul t Performing Organization Address City/[facility] Co de Phone Number [facility] [address] [place] [address] * Magnesium (05/18/2024 5:19 AM EDT) Only the most recent of13 resultswithin the time period is included. Magnesium 2.1 1.8 - 2.6 mg/dL 05/18/2024 6:39 AM EDT [facility] PL[facility] 05/18/2024 5:19 AM EDT 05/18/2024 5:20 AM EDT Alfa Gregory MD LAB BLOOD ORDERABLES Final Resul t Performing Organization Address City/[facility] Co de Phone Number [facility] [address] [place] [address], [address] [address] * Ionized calcium (05/18/2024 5:19 AM EDT) Only the most recent of12 resultswithin the time period is included. Calcium, ionized 5.0 4.5 - 5.3 mg/dL 05/18/2024 6:45 AM EDT [facility] PL[facility] 05/18/2024 5:19 AM EDT 05/18/2024 5:20 AM EDT us Alfa Gregory MD LAB BLOOD ORDERABLES Final Resul t [facility] [address] [facility] [place] [address] * (ABNORMAL) Basic Metabolic Panel (05/18/2024 5:19 AM EDT) Sodium 134 134 - 146 mmol/L 05/18/2024 6:39 AM EDT [facility] Potassium, Bld 4.2 3.5 - 5.0 mmol/L 05/18/2024 6:39 AM EDT [facility] Chloride 99 98 - 109 mmol/L 05/18/2024 6:39 AM EDT [facility] CO2 25 22 - 32 mmol/L 05/18/2024 6:39 AM EDT [facility] Anion gap 10 5 - 15 mmol/L 05/18/2024 6:39 AM EDT [facility] BUN 8 5 - 27 mg/dL 05/18/2024 6:39 AM EDT [facility] Creatinine 0.44 0.40 - 1.00 mg/dL 05/18/2024 6:39 AM EDT [facility] Comment:METHOD TRACEABLE TO IDMS STANDARD Glucose 104(H) 65 - 99 mg/dL 05/18/2024 6:39 AM EDT [facility] Calcium 9.6 8.5 - 10.5 mg/dL 05/18/2024 6:39 AM T [facility] eGFR (CKD-EPI)non-ra ce dependent >90 >59 ml/min/1.7 3sq.m 05/18/2024 6:39 AM EDT [facility] Comment: Reported eGFR is based on the CKD-EPI 2020 equation that does not use a race coefficient. PLASMA 05/18/2024 5:19 AM EDT 05/18/2024 5:20 AM EDT us Alfa Gregory MD LAB BLOOD ORDERABLES Final Resul t [facility] [address] [facility] [place] [address] * (ABNORMAL) CBC without diff (05/17/2024 3:45 AM EDT) Only the most recent of10 resultswithin the time period is included. White Blood Cells 7.0 4.0 - 11.0 X10E9/L 05/17/2024 4:38 AM EDT [facility] RBC count 3.79(L) 3.80 - 5.20 X10E12/L 05/17/2024 4:38 AM EDT [facility] Hemoglobin 12.8 11.7 - 15.5 g/dL 05/17/2024 4:38 AM EDT [facility] Hematocrit 36.6 35 - 47 % 05/17/2024 4:38 AM EDT [facility] MCV 97 80 - 100 fL 05/17/2024 4:38 AM EDT [facility] MCH 33.7 27 - 34 pg 05/17/2024 4:38 AM EDT [facility] MCHC 34.9 32 - 36 g/dL 05/17/2024 4:38 AM EDT [facility] RDW 13.3 11.5 - 15.0 % 05/17/2024 4:38 AM EDT [facility] Platelets 388 150 - 450 X10E9/L 05/17/2024 4:38 AM EDT [facility] MPV 7.7 7 - 12 fL 05/17/2024 4:38 AM EDT [facility] Blood / Unknown 05/17/2024 3 :45 AM EDT 05/17/2024 3:46 AM EDT us Leobardo Greene PA-C LAB BLOOD ORDERABLES Final Result [facility] [address] [facility] [place] [address] * (ABNORMAL) Comprehensive metabolic panel (05/17/2024 3:45 AM EDT) Only the most recent of11 resultswithin the time period is included. Sodium 133(L) 134 - 146 mmol/L 05/17/2024 4:42 AM EDT [facility] Potassium, Bld 4.0 3.5 - 5.0 mmol/L 05/17/2024 4:42 AM EDT [facility] Chloride 100 98 - 109 mmol/L 05/17/2024 4:42 AM EDT [facility] CO2 23 22 - 32 mmol/L 05/17/2024 4:42 AM EDT [facility] Anion gap 10 5 - 15 mmol/L 05/17/2024 4:42 AM EDT [facility] BUN 12 5 - 27 mg/dL 05/17/2024 4:42 AM EDT [facility] Creatinine 0.48 0.40 - 1.00 mg/dL 05/17/2024 4:42 AM EDT [facility] Comment:METHOD TRACEABLE TO IDMS STANDARD Glucose 105(H) 65 - 99 mg/dL 05/17/2024 4:42 AM EDT [facility] Calcium 9.1 8.5 - 10.5 mg/dL 05/17/2024 4:42 AM EDT [facility] Total Protein 6.8 6.0 - 8.0 g/dL 05/17/2024 4:42 AM EDT [facility] Albumin 3.9 3.2 - 5.3 g/dL 05/17/2024 4:42 AM EDT [facility] Alkaline Phosphatase 77 39 - 130 U/L 05/17/2024 4:42 AM EDT [facility] AST 18 0 - 41 U/L 05/17/2024 4:42 AM EDT [facility] ALT 16 0 - 31 U/L 05/17/2024 4:42 AM EDT [facility] Total bilirubin 0.4 0.3 - 1.2 mg/dL 05/17/2024 4:42 AM EDT [facility] eGFR (CKD-EPI)non-rac e dependent >90 >59 ml/min/1.7 3sq.m 05/17/2024 4:42 AM EDT [facility] Comment: Reported eGFR is based on the CKD-EPI 2020 equation that does not use a race coefficient. PLASMA 05/17/2024 3:45 AM EDT 05/17/2024 3:46 AM EDT us Leobardo Greene PA-C LAB BLOOD ORDERABLES Final Result [facility] [address] [facility] [address] [place] [address] * Bedside Glucose *Place/Obtain serum glucose if >500 per glucometer. (05/14/2024 9:10 AM EDT) Only the most recent of2 resultswithin the time period is included. Bedside glucose 86 65 - 99 mg/dL 05/14/2024 9:15 AM EDT [facility] Blood / Unknown 05/14/2024 9 :10 AM EDT 05/14/2024 9:15 AM EDT us Maya Zavala MD POINT OF CARE TEST ORDERAB LES Final Result [facility] * (ABNORMAL) Electrolyte panel (05/13/2024 12:54 PM EDT) Only the most recent of15 resultswithin the time period is included. Sodium 132(L) 134 - 146 mmol/L 05/13/2024 1:52 PM EDT [facility] Potassium, Bld 3.8 3.5 - 5.0 mmol/L 05/13/2024 1:52 PM EDT [facility] Chloride 97(L) 98 - 109 mmol/L 05/13/2024 1:52 PM EDT [facility] CO2 26 22 - 32 mmol/L 05/13/2024 1:52 PM EDT [facility] Anion gap 9 5 - 15 mmol/L 05/13/2024 1:52 PM EDT [facility] PLASMA 05/13/2024 12:5 4 PM EDT 05/13/2024 12:55 PM EDT us Alfa Gregory MD LAB BLOOD ORDERABLES Final Resul t Performing Organization Address City/[facility]/ZIP Co de Phone Number [facility] [address] [facility], [address] [place] [address] * (ABNORMAL) Thiamin (Vitamin B1), WB (05/10/2024 2:35 PM EDT) Only the most recent of2 resultswithin the time period is included. Thiamine 68(L) 70 - 180 nmol/L 05/14/2024 2:01 PM EDT [email or web address] Comment: NOTE ADDITIONAL INFORMATION This test was developed and its performance characteristics determined by [facility] in a manner consistent with CLIA requirements. This test has not been cleared or approved by the U.S. Food and Drug Administration. Test Performed by: [facility] - [address] [address] Junior Analyst: Ester Macdonald Ph.D.; CLIA# [id number] Blood Blood / Unknown 05/10/2024 2 :35 PM EDT 05/10/2024 2:36 PM EDT us Caio White MD LAB BLOOD ORDERABLES Final Resul t [facility] * (ABNORMAL) Folate (05/10/2024 2:35 PM EDT) Only the most recent of2 resultswithin the time period is included. Folate 4.2(L) >5.8 ng/mL 05/10/2024 3:34 PM EDT [facility] Comment:NEW REFERENCE RANGE PLASMA 05/10/2024 2:35 PM EDT 05/10/2024 2:36 PM EDT Caio White MD LAB BLOOD ORDERABLES Final Resul t Performing Organization Address City/[facility]/ZIP Co de Phone Number [facility] [address] [place] [address], [address] [address] * Vitamin B12 (05/10/2024 2:35 PM EDT) Vitamin B-12 295 180 - 914 pg/mL 05/10/2024 3:34 PM EDT [facility] Serum / Unknown 05/10/2024 2 :35 PM EDT 05/10/2024 2:36 PM EDT Caio White MD LAB BLOOD ORDERABLES Final Resul t Performing Organization Address City/[facility] Co de Phone Number [facility] [address] [place] [address], [address] [address] * EEG (05/10/2024 1:30 PM EDT) Narrative MANUALLY TRANSCRIBED RESULTS - 05/10/2024 2:11 PM EDT Images from the original result were not included. [facility] EEG REPORT EEG Service Date: 05/10/24 Date of Report: 05/10/24 History: Alie Briones is a 63 y.o. female with hallucinations and memory loss who is undergoing EEG to evaluate for seizures. Centrally active medications: Buspar, diphenydramine, lorazepam, morphine. Procedure: This EEG was acquired with electrodes placed according to the [id number] electrode placement system. The EEG was acquired [...] of intermittent seizures. Kat Marquez M.D., Ph.D. [facility] Cristal Harris MD NEUROLOGY ORDERABLES Final Resul t Performing Organization Address City/[facility]/ZIP Co de Phone Number MANUALLY TRANSCRIBED RESULTS * Ionized magnesium (05/10/2024 11:01 AM EDT) Only the most recent of3 resultswithin the time period is included. Magnesium, ionized 0.64 0.45 - 0.74 mmol/L 05/10/2024 11:27 AM EDT [facility] Comment:NEW REFERENCE RANGE PLASMA 05/10/2024 11:0 1 AM EDT 05/10/2024 11:02 AM EDT Leobardo Greene PA-C LAB BLOOD ORDERABLES Final Result Performing Organization Address City/[facility]/ZIP Co de Phone Number [facility] [address] [facility] [place] [address] * Echo limited W/O contrast (05/10/2024 10:32 [...] apical lateral. All other segments are normal. us Aiden Spangler MD CV ECHO ORDERABLES Final Result * PERCUTANEOUS CORONARY [...] aggressive medical management. Recommend follow-up with primary cabinetmaker helper outpatient. Coronary Findings Diagnostic Dominance: Right Left [...] resultswithin the time period is included. Pathologist [facility] 3 Hour Trop I, High Sensitivity 31,490(HH) <16 ng/L 05/08/2024 1:19 PM EDT [facility] Comment: Elevations of hs-Troponin may be due to causes other than myocardial ischemia. Recommend serial hs-Troponin testing be performed. For the initial evaluation and management of chest pain patients, refer to the algorithms linked below. Emergency Patient: [email or web address] Inpatient: [email or web address] [facility] 05/08/2024 11:5 8 AM EDT 05/08/2024 11:59 AM EDT Comment:Serum specimen~Misce llaneous us Alfa Gregory MD LAB BLOOD ORDERABLES Edited Resu lt - Final [facility] [address] [place] [address] * (ABNORMAL) Vitamin D 25 hydroxy (05/08/2024 11:58 AM EDT) Pathologist [facility] Vit D, 25-Hydroxy 7.6(L) 30 - 100 ng/mL 05/08/2024 1:21 PM EDT [facility] Comment: Vitamin D status 25 [place] Vitamin D Deficiency <20 ng/mL Insufficiency 20-29 ng/mL Sufficiency 30-100 ng/mL Toxicity >100 ng/mL NOTE: A pediatric reference range has not been established by the jewelry casting model maker apprentice of this kit. The [place] [employer] recommends a Vitamin D level of = or >20ng/mL in infants and children. PLASMA 05/08/2024 11:5 8 AM EDT 05/08/2024 11:59 AM EDT us Alfa Gregory MD LAB BLOOD ORDERABLES Final Resul t [facility] [address] [facility] [place] [address] * (ABNORMAL) Drug Screen, Urine (05/08/2024 10:20 AM EDT) Amphetamine/metham phetamine Negative Negative^ Negative 05/08/2024 11:54 AM EDT [facility] Comment:AMPH/METH screening cut off = 1000 ng/mL Barbiturate Screen, Ur Negative Negative^ Negative 05/08/2024 11:54 AM EDT [facility] Comment:Barbiturates screeni ng cut off value = 200 ng/mL Benzodiazepine Screen, Urine Positive(A) Negative^ Negative 05/08/2024 11:54 AM EDT [facility] Comment: Confirmation available upon request. Benzodiazepines screening cut off value = 200 ng/mL THC, urine Negative Negative^ Negative 05/08/2024 11:54 AM EDT [facility] Comment:Cannabinoids/THC scr eening cut off value = 50 ng/mL Cocaine (metabolite) Negative Negative^ Negative 05/08/2024 11:54 AM EDT [facility] Comment:Cocaine screening cu t off value = 300 ng/mL Opiate Quant, Ur Positive(A) Negative^ Negative 05/08/2024 11:54 AM EDT [facility] Comment: Confirmation available upon request. Opiates screening cut off value = 300 ng/mL NOTE: This test is used for the detection of codeine, hydrocodone (>1000 ng/mL), morphine and hydromorphone (>900 ng/mL) in urine. Phencyclidine Negative Negative^ Negative 05/08/2024 11:54 AM EDT [facility] Comment:Phencyclidine screen ing cut off value = 25 ng/mL Oxycodone Negative Negative^ Negative 05/08/2024 11:54 AM EDT [facility] Comment: Oxycodone screening cut off value = 300 ng/mL NOTE: This test is used for the detection of oxycodone and oxymorphone in urine. Methadone Negative Negative^ Negative 05/08/2024 11:54 AM EDT [facility] Comment:Methadone screening cut off value = 300 ng/mL. Ecstasy Negative Negative^ Negative 05/08/2024 11:54 AM EDT [facility] Comment: Ecstasy screening cut off value = 500 ng/mL This report is intended for use in clinical monitoring or management of patients. Urine / Unknown 05/08/2024 1 0:20 AM EDT 05/08/2024 10:57 AM EDT us Berta Kang MD URINE ORDERABLES Final Result [facility] [address] [facility] [place] [address] * Sodium, urine, random (05/08/2024 10:20 AM EDT) Sodium Urine Random <10 mmol/L 05/08/2024 11:35 AM EDT [facility] Urine / Unknown 05/08/2024 1 0:20 AM EDT 05/08/2024 10:57 AM EDT us Alfa Gregory MD URINE ORDERABLES Final Result Performing Organization Address City/[facility]/ZIP Co de Phone Number [facility] [address] [facility], [address] [place] [address] * Osmolality, urine (05/08/2024 10:20 AM EDT) Osmolality, Ur 353 300 - 1,300 mOsm/kg H2 05/08/2024 11:34 AM EDT [facility] Urine / Unknown 05/08/2024 1 0:20 AM EDT 05/08/2024 10:58 AM EDT us Alfa Gregory MD URINE ORDERABLES Final Result Performing Organization Address [facility] Co de Phone Number [facility] [address] [place] [address] * Thyroid profile includes TSH FT4 (05/08/2024 8:51 AM EDT) Only the most recent of2 resultswithin the time period is included. TSH 1.49 0.49 - 4.67 uIU/mL 05/08/2024 10:47 AM EDT [facility] T4, free 1.07 0.61 - 1.60 ng/dL 05/08/2024 10:47 AM EDT [facility] PLASMA 05/08/2024 8:51 AM EDT 05/08/2024 8:54 AM EDT us Berta Kang MD LAB BLOOD ORDERABLES Fi nal Result Performing Organization Address City/[facility]/ZIP Co de Phone Number [facility] [address] [place] [address], [address] [address] * Uric acid (05/08/2024 8:51 AM EDT) Uric Acid 3.7 2.6 - 7.2 mg/dL 05/08/2024 10:24 AM EDT [facility] PLASMA 05/08/2024 8:51 AM EDT 05/08/2024 8:54 AM EDT us Berta Kang MD LAB BLOOD ORDERABLES Fi nal Result Performing Organization Address City/[facility]/ZIP Co de Phone Number [facility] [address] [facility] [facility] [address] [place] [address] * (ABNORMAL) Osmolality (05/08/2024 8:51 AM EDT) Osmolality 256(L) 280 - 300 mOsm/kg H2 05/08/2024 12:18 PM EDT [facility] PLASMA 05/08/2024 8:51 AM EDT 05/08/2024 8:54 AM EDT us Berta Kang MD LAB BLOOD ORDERABLES Fi nal Result Performing Organization Address [facility] Co de Phone Number [facility] [address] [place] [phone] * (ABNORMAL) Hemoglobin A1c (05/08/2024 8:51 AM EDT) Hemoglobin A1C 5.8(H) 4.4 - 5.6 % 05/08/2024 10:50 AM EDT [facility] Comment: NOTE ADA Guidelines Result HgbA1c Normal : less than 5.7 % Prediabetes : 5.7 % to 6.4 % Diabetes : > 6.4 % Use with caution in patients with abnormal hemoglobin variants as the half-life of red blood cells and in vivo glycation rates are affected. Average glucose 120 mg/dL 10:50 AM EDT [facility] PLASMA 05/08/2024 8:51 AM EDT 05/08/2024 8:54 AM EDT Berta Kang MD LAB BLOOD ORDERABLES Fi nal Result Performing Organization Address City/[facility]/ZIP Co de Phone Number [facility] [address] [facility] [place] [address] * Cortisol (05/08/2024 8:51 AM EDT) Cortisol, Plasma 15.2 ug/dL 05/08/2024 10:29 AM EDT [facility] Comment: Due to the diurnal variation of cortisol levels in normal subjects, all cortisol measurements should be referenced to the time of day of sample collection. AM Cortisol Age>=6 6.7-22.4 ug/dL PM Cortisol Age>=6 <10 ug/dL PLASMA 05/08/2024 8:51 AM EDT 05/08/2024 8:54 AM EDT us Berta Kang MD LAB BLOOD ORDERABLES Fi nal Result Performing Organization Address [facility]/ZIP Co de Phone Number [facility] [address] [place] [address], [address] [address] * Ethanol (05/08/2024 8:51 AM EDT) Ethanol Lvl <0.01 0.00 - 0.08 g/dL 05/08/2024 10:47 AM EDT [facility] Comment: This report is intended for use in clinical monitoring or management of patients. PLASMA 05/08/2024 8:51 AM EDT 05/08/2024 8:54 AM EDT us Berta Kang MD LAB BLOOD ORDERABLES Fi nal Result Performing Organization Address City/[facility]/ZIP Co de Phone Number [facility] [address] [facility] [place] [address] * Lipid profile (05/08/2024 8:51 AM EDT) Cholesterol 197 150 - 200 mg/dL 05/08/2024 10:24 AM EDT [facility] Triglycerides 145 27 - 150 mg/dL 05/08/2024 10:24 AM EDT [facility] HDL Cholesterol 45 >39 mg/dL 10:24 AM EDT [facility] Comment: HDL <40 mg/dL - High Risk HDL > or = 40mg/dL- Desirable HDL >60 mg/dL - Negative Risk VLDL 29 0 - 30 mg/dL 05/08/2024 10:24 AM EDT [facility] LDL (calc) 123 <130 mg/dL 05/08/2024 10:24 AM EDT [facility] Comment: LDL <100 mg/dL - Desirable LDL >160 mg/dL - High Risk Cholesterol:HDL Ratio 4.4 1.0 - 5.0 05/08/2024 10:24 AM EDT [facility] PLASMA 05/08/2024 8:51 AM EDT 05/08/2024 8:54 AM EDT us Berta Kang MD LAB BLOOD ORDERABLES Fi nal Result [facility] [address] [facility] [place] [address] * EKG 12 lead (05/07/2024 6:39 PM EDT) Only the most recent of4 resultswithin the time period is included. 05/07/2024 6:39 PM EDT Narrative TRACEMASTERVUE - 05/07/2024 8:19 PM EDT us Gilberto Zepeda MD ECG ORDERABLES Final Result TRACEWOODROWSTERVTAMY * PERCUTANEOUS CORONARY INTERVENTION, CARDIAC INVASIVE, REVASC VIDEO GAME ANIMATOR/SEAN STENT/ATH LAD, IVUS INITIAL VESSEL, INSERT/REPLACE TEMP [...] 15MM 144CM EMERGE MNRL WORKHORSE OPTILEAP RPL 92520 semi-compliant balloon. Maximum pressure: 14 zakia. Inflation [...] regurgitation or stenosis. Mitral Valve: There is [id number] regurgitation. There is no evidence of mitral [...] Mitral valve structure is normal. There is ciaww-fr-[id number] regurgitation. There is no evidence of mitral [...] mid inferolateral. All other segments are normal. us Harrison Espinal MD CV ECHO ORDERABLES Final Result * (ABNORMAL) POCT ABG with NA, K, GLU, ICA and HCT (05/07/2024 4:41 PM EDT) Portable sodium 117(LL) 134 - 146 mmol/L 05/07/2024 4:45 PM [facility] Portable potassium 3.6 3.5 - 5.0 mmol/L 05/07/2024 4:45 PM [facility] Portable glucose 151(H) 65 - 99 mg/dL 05/07/2024 4:45 PM [facility] Portable hematocrit 40 35 - 47 % 05/07/2024 4:45 PM [facility] Ionized Calcium 4.5 4.5 - 5.3 mg/dL 05/07/2024 4:45 PM [facility] Sample Type ARTERIAL 05/07/2024 4:45 PM [facility] Body Temp 37.0 37.0 C 05/07/2024 4:45 PM [facility] pH 7.421 7.350 - 7.450 05/07/2024 4:45 PM [facility] PCO2 32.8(L) 35 - 45 MMHG 05/07/2024 4:45 PM [facility] PO2 79(L) 80 - 100 MMHG 05/07/2024 4:45 PM [facility] Base,Deficit 2.0 0.0 - 2.0 MMOL/L 05/07/2024 4:45 PM EDT [facility] Portable HCO3 21.3(L) 22 - 26 MMOL/L 05/07/2024 4:45 PM EDT [facility] % O2 Sat 96.0 >90 % 05/07/2024 4:45 PM EDT [facility] Gilberto's Test Pass 05/07/2024 4:45 PM EDT [facility] SPO2 97 % 05/07/2024 4:45 PM EDT [facility] Sample Site LRad 05/07/2024 4:45 PM EDT [facility] Oxygen Source NC 05/07/2024 4:45 PM EDT [facility] Artrial Blood Specimen 05/07/2024 4:41 PM EDT 05/07/2024 4:45 PM EDT Maya Zavala MD POINT OF CARE TEST ORDERAB LES Final Result [facility] [address] [place] [address] * (ABNORMAL) Troponin I, High Sensitivity (05/07/2024 4:08 PM EDT) [facility] Troponin I, High Sensitivity 26,523(HH) <16 ng/L 05/07/2024 5:28 PM EDT [facility] Comment: Elevations of hs-Troponin may be due to causes other than myocardial ischemia. Recommend serial hs-Troponin testing be performed. For the initial evaluation and management of chest pain patients, refer to the algorithms linked below. Emergency Patient: [email or web address] Inpatient: [email or web address] Blood (MISC) 05/07/2024 4:08 PM EDT 05/07/2024 4:23 PM EDT Comment:Serum specimen~Misce llaneous us Harrison Espinal MD LAB BLOOD ORDERABLES Edited Resu lt - Final [facility] [address] [place] [address] * (ABNORMAL) CBC auto differential (05/07/2024 4:08 PM EDT) White Blood Cells 17.7(H) 4.0 - 11.0 X10E9/L 05/07/2024 4:30 PM EDT [facility] RBC count 3.98 3.80 - 5.20 X10E12/L 05/07/2024 4:30 PM EDT [facility] Hemoglobin 13.3 11.7 - 15.5 g/dL 05/07/2024 4:30 PM EDT [facility] Hematocrit 37.8 35 - 47 % 05/07/2024 4:30 PM EDT [facility] MCV 95 80 - 100 fL 05/07/2024 4:30 PM EDT [facility] MCH 33.5 27 - 34 pg 05/07/2024 4:30 PM EDT [facility] MCHC 35.2 32 - 36 g/dL 05/07/2024 4:30 PM EDT [facility] RDW 12.8 11.5 - 15.0 % 05/07/2024 4:30 PM EDT [facility] Platelets 270 150 - 450 X10E9/L 05/07/2024 4:30 PM EDT [facility] MPV 8.5 7 - 12 fL 05/07/2024 4:30 PM EDT [facility] % neutrophils 84.0 % 05/07/2024 4:30 PM EDT [facility] % lymphocytes 8.1 % 05/07/2024 4:30 PM EDT [facility] % monocytes 7.7 % 05/07/2024 4:30 PM EDT [facility] % eosinophils 0.0 % 05/07/2024 4:30 PM EDT [facility] % Basophils 0.2 % 05/07/2024 4:30 PM EDT [facility] Neutrophils Absolute (A) 14.9(H) 1.5 - 6.6 X10E9/L 05/07/2024 4:30 PM EDT [facility] Lymphocytes Absolute 1.4 1.0 - 3.5 X10E9/L 05/07/2024 4:30 PM EDT [facility] Monocytes Absolute 1.4(H) 0 - 0.9 X10E9/L 05/07/2024 4:30 PM EDT [facility] Eosinophils Absolute 0.0 0.0 - 0.4 X10E9/L 05/07/2024 4:30 PM EDT [facility] Basophils Absolute 0.0 0.0 - 0.2 X10E9/L 05/07/2024 4:30 PM EDT [facility] Blood / Unknown 05/07/2024 4 :08 PM EDT 05/07/2024 4:24 PM EDT us Harrison Espinal MD LAB BLOOD ORDERABLES Final Resul t [facility] [address] [place] [address] * (ABNORMAL) APTT (05/07/2024 4:08 PM EDT) aPTT 124(HH) 26 - 37 sec 05/07/2024 4:51 PM EDT [facility] MISC 05/07/2024 4:08 PM EDT 05/07/2024 4:24 PM EDT Comment:Plasma~Miscellaneous us Jaime Mora MD LAB BLOOD ORDERABLES Edited Re sult - Final [facility] [address] [place] [address] * (ABNORMAL) Protime & INR (05/07/2024 4:08 PM EDT) Protime 13.4(H) 9.8 - 13.2 sec 05/07/2024 4:51 PM EDT [facility] Inr 1.2 0.9 - 1.2 05/07/2024 4:51 PM EDT [facility] PLASMA 05/07/2024 4:08 PM EDT 05/07/2024 4:24 PM EDT us Harrison Espinal MD LAB BLOOD ORDERABLES Final Resul t [facility] [address] [place] [address] * X-ray chest 1 view (05/07/2024 2:40 [...] Nnamdi Amaro MD on 05/07/2024 2:46 PM us Gretchen Fraser MD IMG DIAGNOSTIC IMAGING ORDERA [...] on 05/07/2024 2:45 PM Gretchen Fraser MD [facility] CT ORDERABLES Final Resul t * X-ray [...] on 05/07/2024 2:43 PM Gretchen Fraser MD [facility] DIAGNOSTIC IMAGING ORDERA BLES Final Result * [...] - 0.70 IU/mL 05/08/2024 12:37 AM EDT [facility] Comment: Optimal time for testing is 6 hrs post dosage This test is specific for monitoring patients on UFH, and is not recommended for use with other Anti-Xa medications. PLASMA 05/07/2024 12:0 3 AM EDT 05/08/2024 12:23 AM EDT us Jaime Mora MD LAB BLOOD ORDERABLES Final Res ult [facility] [address] [place] [address] * (ABNORMAL) Sodium (05/07/2024 12:03 AM EDT) Sodium 126(L) 134 - 146 mmol/L 05/08/2024 1:08 AM EDT [facility] PLASMA 05/07/2024 12:0 3 AM EDT 05/08/2024 12:23 AM EDT Shayne Velasquez MD LAB BLOOD ORDERABLES Final Result [facility] [address] [place] [address] from Last 3 Months Insurance MEDICAID [place] [employer] MEDICARE [facility] MEDICARE MEDICAID [place] Advance Directives * Full Code (Latest Code Status on File) Date Activated Date Inactivated Comments 05/08/2024 7:31 AM 05/18/2024 9:39 PM * Full Code Date Activated Date Inactivated Comments 05/07/2024 4:02 PM 05/07/2024 5:32 PM Care Teams Restaurant Busser Relationship Specialty Start Date End Date [facility], [place] [id number] [place] PCP - General Family Medicine 05/07/24
--- OUTSIDE RECORDS SUMMARY | 2024-08-07 15:11 | XMS_ITS | Encounter Summary ---
Author Organization [employer] [facility] tem Address [facility] [place]-[id number] [address] [place] [address] Care Team Providers Care Head Up Operator Helper Name Role Phone Services, [facility] Primary Care Provider Reason for Visit * Reason Comments Med Refill Encounter Details Date Type Department Care Team ([facility] st Contact Info) Description 10/16/2021 Refill [facility] [address] [place] [address] Mao San PA [address] [place], [place] [phone] Spondylosis of cervical region without myelopathy or [...] requests. The patient must contact our office. [phone] * Telephone Encounter - Terra Rodriguez RN - 10/16/2021 5:03 AM EDT Patient left message yesterday regarding prescription. Call returned to patient to clarify. Patientstates she would like refill of Gabapentin and she would like it sent to [facility]. Upon review of chart patient, order for Gabapentin was signed on 11/11/2021. Per [facility] patient last filled 09/16/2021. Call placed to [facility] to see if there was an issue with the previously e-scribed order. Speech Language Pathology Assistant spoke with [employer] ([facility]) he confirms patient's last fill was 09/16/2021. [employer] runs script throughinsurance to see if there was an insurance issue. He confirms that there is no issue and apologizesfor the delay. He states that he will prepare script for patient to pick out hand today. Call placed to patient to inform her of conversation with [facility]. She verbalized understanding. documented in this encounter Plan of Treatment Upcoming Encounters Date Type Department Care Team (Late st Contact Info) Description 10/07/2024 3:15 PM EDT Office Visit [facility] [address] [place] [phone] Julianna Hdez MD [address] [place] [address] documented as of this encounter Visit Diagnoses Diagnosis Spondylosis of cervical region without myelopathy or radiculopathy documented in this encounter Additional Health Concerns Assessment Noted Time PHQ-9 Depression Total Score: 3 09/21/20 21 2:00 PM EDT A Body Mass Index follow-up plan has been documented for the patient 06/18/2020 4:09 PM EDT documented as of this encounter Care Teams Head Up Operator Helper Relationship Specialty Start Date End Date Services, [facility] [address] [place], [place] PCP - General Family Medicine 05/07/24 documented as of this encounter
--- OUTSIDE RECORDS SUMMARY | 2024-08-07 15:11 | XMS_ITS | Encounter Summary ---
Author Organization [employer] Sys tem Address [facility][id number] [address] [place] [address] Care Team Providers Care Bookkeeping Assistant Name Role Phone Services, [facility] Primary Care Provider Reason for Visit * Reason Comments Med Refill Encounter Details Date Type Department Care Team ([facility] Contact Info) Description 07/15/2021 Refill [facility] [address] [place] [address] Igor Holliday MD [address] [facility]. Provider retired 05/14/24 [place] [address] Social History Tobacco Use Types Packs/Day Years [...] [address] [place] [address] Julianna Hdez MD [address] [place] [address] documented as of this encounter Visit Diagnoses Not on filedocumented in this encounter Additional Health Concerns Assessment Noted Time PHQ-9 Depression Total Score: 3 11/04/19 21 2:00 PM EDT A Body Mass Index follow-up plan has been documented for the patient 06/18/2020 4:09 PM EDT documented as of this encounter Care Teams Bookkeeping Assistant Relationship Specialty Start Date End Date Services, [facility] [address] [place], [place] PCP - General Family Medicine 05/07/24 documented as of this encounter
--- OUTSIDE RECORDS SUMMARY | 2024-08-07 15:11 | XMS_ITS | Encounter Summary ---
Author Organization [employer] Sys tem Address [facility] [place][id number] [address] [place] [address] Care Team Providers Care Extrusion Die Template Maker Name Role Phone Services, [facility] Primary Care Provider Reason for Visit * Reason Comments Med Refill Encounter Details Date Type Department Care Team ([facility] Contact Info) Description 09/12/2021 Refill [facility] [address] [place] [address] Igor Holliday MD [address]. Provider retired 05/14/24 [place], [place] [id number] Social History Tobacco Use Types Packs/Day Years [...] Upcoming Encounters Date Type Department Care Team ([facility] Contact Info) Description 10/07/2024 3:15 PM EDT Office Visit [facility] [address] [place] [address] Julianna Hdez MD [address] [place] [address] documented as of this encounter Visit Diagnoses Not on filedocumented in this encounter Additional Health Concerns Assessment Noted Time PHQ-9 Depression Total Score: 3 11/04/19 21 2:00 PM EDT A Body Mass Index follow-up plan has been documented for the patient 06/18/2020 4:09 PM EDT documented as of this encounter Care Teams Extrusion Die Template Maker Relationship Specialty Start Date End Date Services, [facility] [address] [place], [place] PCP - General Family Medicine 05/07/24 documented as of this encounter
--- OUTSIDE RECORDS SUMMARY | 2024-08-07 15:11 | XMS_ITS | Encounter Summary ---
Author Organization [facility] Address [facility] [place]-[id number] [address] [place] [address] Care Team Providers Care Contract Admin Name Role Phone Services, [facility] Primary Care Provider Reason for Visit * Reason Onset Date Comments Med Refill 03/11/2021 Encounter Details Date Type Department Care Team ([facility] st Contact Info) Description 03/11/2021 Refill [facility] [address] [place] [address] Orquidea Cloud CMA Social History [...] [address] [place] [phone] Julianna Hdez MD [address] [place] [address] documented as of this encounter Visit Diagnoses Not on filedocumented in this encounter Additional Health Concerns Assessment Noted Time PHQ-9 Depression Total Score: 3 11/04/19 21 2:00 PM EDT A Body Mass Index follow-up plan has been documented for the patient 06/18/2020 4:09 PM EDT documented as of this encounter Care Teams Contract Admin Relationship Specialty Start Date End Date Services, [facility] [address] [place], [place] PCP - General Family Medicine 05/07/24 documented as of this encounter
--- OUTSIDE RECORDS SUMMARY | 2024-08-07 15:12 | XMS_ITS | Encounter Summary ---
Author Organization [facility] [employer] [facility] tem Address [facility]-[id number] [address] [place] [address] Care Team Providers Care Automotive Repair Technician Name Role Phone Services, [facility] Primary Care Provider Reason for Visit * Reason Onset Date Comments Med Refill 05/15/2019 Encounter Details Date Type Department Care Team (Late st Contact Info) Description 05/15/2019 Refill [facility] [address] [place] [phone] Naida Bahena, DONTE Spondylosis of cervical region [...] [address] [place] [address] Julianna Hdez MD [address] [place] [address] documented as of this encounter Visit Diagnoses Diagnosis Spondylosis of cervical region without myelopathy or radiculopathy documented in this encounter Additional Health Concerns Infection Onset Date Last Indicated Resolved Time COVID-19 Positive 09/03/2019 09/03/2019 09/24/2019 11:12 PM EDT documented as of this encounter Care Teams Automotive Repair Technician Relationship Specialty Start Date End Date Services, [facility] [address] [place], [place] PCP - General Family Medicine 05/07/24 documented as of this encounter
--- OUTSIDE RECORDS SUMMARY | 2024-08-07 15:12 | XMS_ITS | Encounter Summary ---
Author Organization [facility] tem Address [facility] [place]-[id number] [address] [place] [address] Care Team Providers Care Equipment Monitor Phototypesetting Name Role Phone Services, [facility] Primary Care Provider Reason for Visit * Reason Comments Med Refill Encounter Details Date Type Department Care Team ([facility] st Contact Info) Description 12/03/2018 Refill [facility] [address] [place] [address] Mao San PA [address] [place], [place] [phone] Spondylosis of cervical region without myelopathy or [...] [address] [place] [address] Julianna Hdez MD [address] [place] [address] documented as of this encounter Visit Diagnoses Diagnosis Spondylosis of cervical region without myelopathy or radiculopathy documented in this encounter Additional Health Concerns Infection Onset Date Last Indicated Resolved Time COVID-19 Positive 09/03/2019 09/03/2019 09/24/2019 11:12 PM EDT documented as of this encounter Care Teams Equipment Monitor Phototypesetting Relationship Specialty Start Date End Date Services, [facility] [address] [place], [place] PCP - General Family Medicine 05/07/24 documented as of this encounter
--- OUTSIDE RECORDS SUMMARY | 2024-08-07 15:12 | XMS_ITS | Encounter Summary ---
Author Organization [employer] Sys tem Address [facility]-[id number] [address] [place] [address] Care Team Providers Care Rink Rat Name Role Phone Services, [facility] Primary Care Provider Encounter Details Date Type Department Care Team ([facility] Contact Info) Description 07/09/2020 Telephone [facility] [address] [place] [phone] Jayson íRos CNA Social History Tobacco Use Types Packs/Day [...] with refilling this? * Telephone Encounter - MRACIAL Nicholson - 07/09/2020 3:05 PM EDT That's fine documented in this encounter Plan of Treatment Upcoming Encounters Date Type Department Care Team (Late st Contact Info) Description 10/07/2024 3:15 PM EDT Office Visit [facility] [address] [place] [phone] Julianna Hdez MD [address] [place] [address] documented as of this encounter Visit Diagnoses Not on filedocumented in this encounter Additional Health Concerns Assessment Noted Time PHQ-9 Depression Total Score: 0 06/19/19 21 3:00 PM EDT A Body Mass Index follow-up plan has been documented for the patient 06/18/2020 4:09 PM EDT documented as of this encounter Care Teams Rink Rat Relationship Specialty Start Date End Date Services, [facility] [address] [place], [place] PCP - General Family Medicine 05/07/24 documented as of this encounter
--- OUTSIDE RECORDS SUMMARY | 2024-08-07 15:12 | XMS_ITS | Encounter Summary ---
Author Organization [facility] [employer] [facility] tem Address [facility] [place]-[id number] [address] [place] [address] Care Team Providers Care Classification Officer Name Role Phone Services, [facility] Primary Care Provider Reason for Visit * Reason Onset Date Comments Med Refill 07/30/2019 Encounter Details Date Type Department Care Team ([facility] Contact Info) Description 07/30/2019 Refill [facility] [address] [place] [address] Ceci Day RN Social History [...] Upcoming Encounters Date Type Department Care Team ([facility] Contact Info) Description 10/07/2024 3:15 PM EDT Office Visit [facility] [address] [phone] Julianna Hdez MD [address] [place] [address] documented as of this encounter Visit Diagnoses Not on filedocumented in this encounter Additional Health Concerns Infection Onset Date Last Indicated Resolved Time COVID-19 Positive 09/03/2019 09/03/2019 09/24/2019 11:12 PM EDT documented as of this encounter Care Teams Classification Officer Relationship Specialty Start Date End Date Services, [facility] [address] [place], [place] PCP - General Family Medicine 05/07/24 documented as of this encounter
--- OUTSIDE RECORDS SUMMARY | 2024-08-07 15:12 | XMS_ITS | Encounter Summary ---
Author Organization [facility] tem Address [facility] [place]-[id number] [address] [place] [address] Care Team Providers Care Printer Operator Name Role Phone Services, [facility] Primary Care Provider Encounter Details Date Type Department Care Team ([facility] Contact Info) Description 05/13/2020 Orders Only [facility] [address] [place] [address] Beatriz Ash, JIRA DEVELOPER-TOOL HARDENER [address] [place], [place] [phone] Social History Tobacco Use Types Packs/Day Years [...] [address] [place] [phone] Julianna Hdez MD [address] [place] [address] documented as of this encounter Visit Diagnoses Not on filedocumented in this encounter Care Teams Printer Operator Relationship Specialty Start Date End Date [facility], [facility] [address] [place], [place] PCP - General Family Medicine 05/07/24 documented as of this encounter
--- OUTSIDE RECORDS SUMMARY | 2024-08-07 15:12 | XMS_ITS | Encounter Summary ---
Author Organization [employer] Sys tem Address [facility] [place][id number] [address] [place] [address] Care Team Providers Care Cryptologic Technician Technical Name Role Phone Services, [facility] Primary Care Provider Reason for Visit * Reason Comments Med Refill Encounter Details Date Type Department Care Team ([facility] Contact Info) Description 09/28/2022 Refill [facility] [address] [place] [address] Beatriz Ash APRN-DIRECTOR OF SOCIAL WORK [address] [place], [place] [phone] Social History Tobacco Use Types Packs/Day Years [...] [address] [place] [address] Julianna Hdez MD [address] [place] [address] documented as of this encounter Visit Diagnoses Not on filedocumented in this encounter Additional Health Concerns Assessment Noted Time PHQ-9 Depression Total Score: 3 11/12/19 22 10:00 AM EDT A Body Mass Index follow-up plan has been documented for the patient 06/18/2020 4:09 PM EDT documented as of this encounter Care Teams Cryptologic Technician Technical Relationship Specialty Start Date End Date Services, [facility] [address] [place], [place] PCP - General Family Medicine 05/07/24 documented as of this encounter
--- OUTSIDE RECORDS SUMMARY | 2024-08-07 15:12 | XMS_ITS | Encounter Summary ---
Author Organization [facility] Sys tem Address [facility] [place][id number] [address] [place] [address] Care Team Providers Care Icu Clerk Name Role Phone Services, [facility] Primary Care Provider Encounter Details Date Type Department Care Team ([facility] Contact Info) Description 01/16/2024 Telephone [facility] - Family Medicine [address] [place] [phone] Jalyn Bernal CMA Social History Tobacco Use [...] [address] [place] [address] Julianna Hdez MD [address] [place] [address] documented as of this encounter Visit Diagnoses Not on filedocumented in this encounter Additional Health Concerns Assessment Noted Time PHQ-9 Depression Total Score: 3 11/12/19 22 10:00 AM EDT A Body Mass Index follow-up plan has been documented for the patient 06/18/2020 4:09 PM EDT documented as of this encounter Care Teams Icu Clerk Relationship Specialty Start Date End Date Services, [facility] [address] [place], [place] PCP - General Family Medicine 05/07/24 documented as of this encounter
--- OUTSIDE RECORDS SUMMARY | 2024-08-07 15:12 | XMS_ITS | Encounter Summary ---
Author Organization [facility] [employer] [facility] tem Address [facility] [place][id number] [address] [place] [address] Care Team Providers Care Author Agent Name Role Phone Services, [facility] Primary Care Provider Reason for Visit * Reason Onset Date Comments Med Refill 07/29/2019 Encounter Details Date Type Department Care Team (Late st Contact Info) Description 07/29/2019 Refill [facility] [address] [place] [address] Naida Bahnea RN Spondylosis of cervical region without myelopathy [...] [address] [place] [phone] Julianna Hdez MD [address] [place] [address] documented as of this encounter Visit Diagnoses Diagnosis Spondylosis of cervical region without myelopathy or radiculopathy documented in this encounter Additional Health Concerns Infection Onset Date Last Indicated Resolved Time COVID-19 Positive 09/03/2019 09/03/2019 09/24/2019 11:12 PM EDT documented as of this encounter Care Teams Author Agent Relationship Specialty Start Date End Date Services, [facility] [address] [place], [place] PCP - General Family Medicine 05/07/24 documented as of this encounter
--- OUTSIDE RECORDS SUMMARY | 2024-08-07 15:12 | XMS_ITS | Encounter Summary ---
Author Organization [facility] [employer] s tem Address [facility] [place][id number] [address] [place] [address] Care Team Providers Care Apartment Manager Name Role Phone Services, [facility] Primary Care Provider Reason for Visit * Reason Comments Med Refill Encounter Details Date Type Department Care Team ([facility] st Contact Info) Description 10/31/2022 Refill [facility] [address] [place] [address] Mao San PA [address], [address] [place], [place] [phone] Spondylosis of cervical region without myelopathy or [...] requests. The patient must contact our office. [phone] documented in this encounter Plan of Treatment Upcoming Encounters Date Type Department Care Team (Late st Contact Info) Description 10/07/2024 3:15 PM EDT Office Visit [facility] [address] [place] [phone] Julianna Hdez MD [address] [place] [address] documented as of this encounter Visit Diagnoses Diagnosis Spondylosis of cervical region without myelopathy or radiculopathy documented in this encounter Additional Health Concerns Assessment Noted Time PHQ-9 Depression Total Score: 3 11/12/19 22 10:00 AM EDT A Body Mass Index follow-up plan has been documented for the patient 06/18/2020 4:09 PM EDT documented as of this encounter Care Teams Apartment Manager Relationship Specialty Start Date End Date Services, [facility] [address] [place], [place] PCP - General Family Medicine 05/07/24 documented as of this encounter
--- OUTSIDE RECORDS SUMMARY | 2024-08-07 15:12 | XMS_ITS | Encounter Summary ---
Author Organization [employer] Sys tem Address [facility] [id number] [address] [place] [address] Care Team Providers Care Conveyor Operator Name Role Phone Services, [facility] Primary Care Provider Reason for Visit * Reason Comments Med Refill Encounter Details Date Type Department Care Team ([facility] Contact Info) Description 06/09/2022 Refill [facility] Medicine [address] [place] [address] Beatriz Ash, [facility] [address] [place], [place] [phone] Social History Tobacco Use Types Packs/Day Years [...] Upcoming Encounters Date Type Department Care Team ([facility] Contact Info) Description 10/07/2024 3:15 PM EDT Office Visit [facility] [address] [place] [address] Julianna Hdez MD [address] [place] [address] documented as of this encounter Visit Diagnoses Not on filedocumented in this encounter Additional Health Concerns Assessment Noted Time PHQ-9 Depression Total Score: 3 11/12/19 22 10:00 AM EDT A Body Mass Index follow-up plan has been documented for the patient 06/18/2020 4:09 PM EDT documented as of this encounter Care Teams Conveyor Operator Relationship Specialty Start Date End Date Services, [facility] [address] [place], [place] PCP - General Family Medicine 05/07/24 documented as of this encounter
--- OUTSIDE RECORDS SUMMARY | 2024-08-07 15:12 | XMS_ITS | Encounter Summary ---
Author Organization [employer] [facility] tem Address [facility][id number] [address] [place] [address] Care Team Providers Care Automation Software Engineer Name Role Phone Services, [facility] Primary Care Provider Encounter Details Date Type Department Care Team ([facility] Contact Info) Description 06/10/2022 Orders Only [facility] [address] [place] [address] Beatriz Ash, LAUNDRY EQUIPMENT OPERATOR-COMPLIANCE COUNSEL [address] [place], [place] [phone] Social History Tobacco Use Types Packs/Day Years [...] Frequency of Binge Drinking Not on file 100 10/2017 PHQ-2 Answer Date Recorded Total Score [...] Visit [facility] [address] [facility] [address] [place] [address] Julianna Hdez MD [address] [place] [address] documented as of this encounter Visit Diagnoses Not on filedocumented in this encounter Additional Health Concerns Assessment Noted Time PHQ-9 Depression Total Score: 3 11/12/19 22 10:00 AM EDT A Body Mass Index follow-up plan has been documented for the patient 06/18/2020 4:09 PM EDT documented as of this encounter Care Teams Automation Software Engineer Relationship Specialty Start Date End Date Services, [facility] [address] [place], [place] PCP - General Family Medicine 05/07/24 documented as of this encounter
--- OUTSIDE RECORDS SUMMARY | 2024-08-07 15:12 | XMS_ITS | Encounter Summary ---
Author Organization [facility] Address [facility][id number] [address] [place] [address] Care Team Providers Care Service Delivery Consultant Name Role Phone Services, [facility] Primary Care Provider Reason for Visit * Reason Onset Date Comments Med Refill 02/26/2019 Encounter Details Date Type Department Care Team (Late Contact Info) Description 02/26/2019 Refill [facility] [address] [place] [address] Ceci Day, DONTE Spondylosis of [...] [facility] [address] [facility] [address] [place] [address] Julianna Hdez MD [address] [place] [address] documented as of this encounter Visit Diagnoses Diagnosis Spondylosis of cervical region without myelopathy or radiculopathy documented in this encounter Additional Health Concerns Infection Onset Date Last Indicated Resolved Time COVID-19 Positive 09/03/2019 09/03/2019 09/24/2019 11:12 PM EDT documented as of this encounter Care Teams Service Delivery Consultant Relationship Specialty Start Date End Date [facility] [address] [place] [address] PCP - General Family Medicine 05/07/24 documented as of this encounter
--- OUTSIDE RECORDS SUMMARY | 2024-08-07 15:12 | XMS_ITS | Encounter Summary ---
Author Organization [facility] tem Address [facility]-[id number] [address] [place] [address] Care Team Providers Care Cobbler Mckay Name Role Phone Services, [facility] Primary Care Provider Reason for Visit * Reason Comments Med Refill Encounter Details Date Type Department Care Team ([facility] Contact Info) Description 05/28/2022 Refill [facility] [address] [place] [address] aMo San PA [address] [facility] 2nd [address] [place], [place] [phone] Spondylosis of cervical region without myelopathy or [...] Upcoming Encounters Date Type Department Care Team ([facility] Contact Info) Description 10/07/2024 3:15 PM EDT Office Visit [facility] [address] [place] [address] Julianna Hdez MD [address] [place] [address] documented as of this encounter Visit Diagnoses Diagnosis Spondylosis of cervical region without myelopathy or radiculopathy documented in this encounter Additional Health Concerns Assessment Noted Time PHQ-9 Depression Total Score: 3 11/12/19 22 10:00 AM EDT A Body Mass Index follow-up plan has been documented for the patient 06/18/2020 4:09 PM EDT documented as of this encounter Care Teams Cobbler Mckay Relationship Specialty Start Date End Date Services, [facility] [address] [place], [place] PCP - General Family Medicine 05/07/24 documented as of this encounter
--- OUTSIDE RECORDS SUMMARY | 2024-08-07 15:12 | XMS_ITS | Encounter Summary ---
Author Organization [facility] [place] tem Address [facility][id number] [address] [place] [address] Care Team Providers Care Personal Financial Representative Name Role Phone Services, [facility] Primary Care Provider Reason for Visit * Reason Comments Med Refill Encounter Details Date Type Department Care Team ([facility] st Contact Info) Description 03/12/[address] [facility] [address] [place] [address] Mao San PA [address], 2[address] [place], [place] [phone] Spondylosis of cervical region without myelopathy or [...] requests. The patient must contact our office. [phone] documented in this encounter Plan of Treatment Upcoming Encounters Date Type Department Care Team (Late st Contact Info) Description 10/07/2024 3:15 PM EDT Office Visit [facility] [address] [place] [phone] Julianna Hdez MD [address] [place] [address] documented as of this encounter Visit Diagnoses Diagnosis Spondylosis of cervical region without myelopathy or radiculopathy documented in this encounter Care Teams Personal Financial Representative Relationship Specialty Start Date End Date Services, [facility] [address] [place], [place] PCP - General Family Medicine 05/07/24 documented as of this encounter
--- OUTSIDE RECORDS SUMMARY | 2024-08-07 15:12 | XMS_ITS | Encounter Summary ---
Author Organization [employer] tem Address [facility] [place]-[id number] [address] [place] [address] Care Team Providers Care Documentation Designer Name Role Phone Services, [facility] Primary Care Provider Reason for Visit * Reason Comments Med Refill Encounter Details Date Type Department Care Team ([facility] Contact Info) Description 07/09/2022 Refill [facility] [address] [place] [address] Beatriz Ash APRN-VENEER SANDER [address] [place], [place] [phone] Social History Tobacco Use Types Packs/Day Years [...] [address] [place] [address] Julianna Hdez MD [address] [place] [address] documented as of this encounter Visit Diagnoses Not on filedocumented in this encounter Additional Health Concerns Assessment Noted Time PHQ-9 Depression Total Score: 3 11/12/19 22 10:00 AM EDT A Body Mass Index follow-up plan has been documented for the patient 06/18/2020 4:09 PM EDT documented as of this encounter Care Teams Documentation Designer Relationship Specialty Start Date End Date Services, [facility] [address] [place], [place] PCP - General Family Medicine 05/07/24 documented as of this encounter
--- OUTSIDE RECORDS SUMMARY | 2024-08-07 15:12 | XMS_ITS | Encounter Summary ---
Author Organization [facility] tem Address [facility][id number] [address] [place] [address] Care Team Providers Care Auto Electrician Name Role Phone Services, [facility] Primary Care Provider Reason for Visit * Reason Onset Date Comments Med Refill 08/31/2020 Encounter Details Date Type Department Care Team ([facility] Contact Info) Description 08/31/2020 Refill [facility] [address] [place] [address] Deepti Alvares LPN Social History [...] Upcoming Encounters Date Type Department Care Team ([facility] Contact Info) Description 10/07/2024 3:15 PM EDT Office Visit [facility] [address] [facility] 1 [place] [address] Julianna Hdez MD [address] [place] [address] documented as of this encounter Visit Diagnoses Not on filedocumented in this encounter Additional Health Concerns Assessment Noted Time PHQ-9 Depression Total Score: 0 06/19/19 3:00 PM EDT A Body Mass Index follow-up plan has been documented for the patient 06/18/2020 4:09 PM EDT documented as of this encounter Care Teams Auto Electrician Relationship Specialty Start Date End Date [facility], [facility] [address] [place], [place] PCP - General Family Medicine 05/07/24 documented as of this encounter
--- OUTSIDE RECORDS SUMMARY | 2024-08-07 15:12 | XMS_ITS | Encounter Summary ---
Author Organization [facility] tem Address [facility]-[id number] [address] [place] [address] Care Team Providers Care Safety Security Officer Name Role Phone Services, [facility] Primary Care Provider Reason for Visit * Reason Comments Med Refill Encounter Details Date Type Department Care Team ([facility] st Contact Info) Description 07/07/2019 Refill [facility] [address] [place] [address] Mao San PA [address], [address] [place], [place] [phone] Spondylosis of cervical region without myelopathy or [...] [address] [place] [address] Julianna Hdez MD [address] [place] [address] documented as of this encounter Visit Diagnoses Diagnosis Spondylosis of cervical region without myelopathy or radiculopathy documented in this encounter Additional Health Concerns Infection Onset Date Last Indicated Resolved Time COVID-19 Positive 09/03/2019 09/03/2019 09/24/2019 11:12 PM EDT documented as of this encounter Care Teams Safety Security Officer Relationship Specialty Start Date End Date Services, [facility] [address] [place], [place] PCP - General Family Medicine 05/07/24 documented as of this encounter
--- OUTSIDE RECORDS SUMMARY | 2024-08-07 15:12 | XMS_ITS | Encounter Summary ---
Author Organization [facility] s tem Address [facility] [place][id number] [address] [place] [address] Care Team Providers Care Community Health Counselor Name Role Phone Services, [facility] Primary Care Provider Reason for Visit * Reason Comments Med Refill Encounter Details Date Type Department Care Team ([facility] Contact Info[facility] Description 11/27/2022 Refill [facility] Management [facility] [address] [place] [address] Mao San PA [address], [address] [place], [place] [phone] Spondylosis of cervical region without myelopathy or [...] requests. The patient must contact our office. [phone] documented in this encounter Plan of Treatment Upcoming Encounters Date Type Department Care Team (Late st Contact Info) Description 10/07/2024 3:15 PM EDT Office Visit [facility] [address] [place] [address] Julianna Hdez MD [address] [place] [address] documented as of this encounter Visit Diagnoses Diagnosis Spondylosis of cervical region without myelopathy or radiculopathy documented in this encounter Additional Health Concerns Assessment Noted Time PHQ-9 Depression Total Score: 3 11/12/19 22 10:00 AM EDT A Body Mass Index follow-up plan has been documented for the patient 06/18/2020 4:09 PM EDT documented as of this encounter Care Teams Community Health Counselor Relationship Specialty Start Date End Date Services, [facility] [address] [place], [place] PCP - General Family Medicine 05/07/24 documented as of this encounter
--- OUTSIDE RECORDS SUMMARY | 2024-08-07 15:12 | XMS_ITS | Encounter Summary ---
Author Organization [employer] tem Address [facility]-[id number] [address] [place] [address] Care Team Providers Care Computational Mathematician Name Role Phone Services, [facility] Primary Care Provider Reason for Visit * Reason Comments Med Refill Encounter Details Date Type Department Care Team ([facility] Contact Info) Description 08/17/2022 Refill [facility] [address] [place] [address] Beatriz Ash APRN-PARTS ADVISOR [address] [place], [place] [phone] Social History Tobacco Use Types Packs/Day Years [...] [address] [place] [address] Julianna Hdez MD [address] [place] [address] documented as of this encounter Visit Diagnoses Not on filedocumented in this encounter Additional Health Concerns Assessment Noted Time PHQ-9 Depression Total Score: 3 11/12/19 22 10:00 AM EDT A Body Mass Index follow-up plan has been documented for the patient 06/18/2020 4:09 PM EDT documented as of this encounter Care Teams Computational Mathematician Relationship Specialty Start Date End Date Services, [facility] [address] [place], [place] PCP - General Family Medicine 05/07/24 documented as of this encounter
--- OUTSIDE RECORDS SUMMARY | 2024-08-07 15:12 | XMS_ITS | Encounter Summary ---
Author Organization [facility] [facility] Systemsb[facility] hospitalYk[facility] tem Address [facility]-[id number] [address] [place] [address] Care Team Providers Care Shovel Logger Name Role Phone Services, [facility] Primary Care Provider Reason for Visit * Reason Comments Med Refill Encounter Details Date Type Department Care Team ([facility] st Contact Info) Description 11/16/2018 Refill [facility] [address] [place] [address] Mao San PA [address], [address] [place], [place] [phone] Spondylosis of cervical region without myelopathy or [...] [address] [place] [address] Julianna Hdez MD [address] [place] [address] documented as of this encounter Visit Diagnoses Diagnosis Spondylosis of cervical region without myelopathy or radiculopathy documented in this encounter Additional Health Concerns Infection Onset Date Last Indicated Resolved Time COVID-19 Positive 09/03/2019 09/03/2019 09/24/2019 11:12 PM EDT documented as of this encounter Care Teams Shovel Logger Relationship Specialty Start Date End Date Services, [facility] [address] [place], [place] PCP - General Family Medicine 05/07/24 documented as of this encounter
--- OUTSIDE RECORDS SUMMARY | 2024-08-07 15:12 | XMS_ITS | Encounter Summary ---
Author Organization [employer] tem Address [facility]-[id number] [address] [place] [address] Care Team Providers Care Hair Boiler Name Role Phone Services, [facility] Primary Care Provider Reason for Visit * Reason Comments Med Refill Encounter Details Date Type Department Care Team ([facility] Contact Info) Description 11/17/2020 Refill [facility] [address] [place] [address] Beatriz Ash, MIKAELA-ASSISTANT PROJECT MANAGER [address] [place], [place] [phone] Social History Tobacco Use Types Packs/Day Years [...] [address] [place] [address] Julianna Hdez MD [address] [place] [address] documented as of this encounter Visit Diagnoses Not on filedocumented in this encounter Additional Health Concerns Assessment Noted Time PHQ-9 Depression Total Score: 3 11/04/19 2:00 PM EDT A Body Mass Index follow-up plan has been documented for the patient 06/18/2020 4:09 PM EDT documented as of this encounter Care Teams Hair Boiler Relationship Specialty Start Date End Date Services, [facility] [address] [place], [place] PCP - General Family Medicine 05/07/24 documented as of this encounter
--- NOTE | 2024-08-07 15:54 | PM.CN ---
Consult Note: HPI Data of Consult Patient: known to practice within the last 3 years Consult date: 08/07/24 Requesting Physician: Margo Urbano NP Primary Care Provider: Non-Staff Physician, MD Consult Narrative Reason for consult: neck pain Narrative: 63yof who presents for assessment. persistence of pain in neck, bilateral shoulder area. 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 previously has cervical rfa, with good benefit of >50% for >3 months. last done about 10 years ago. continues in a series of provider directed home exercises >6 weeks, without lasting benefit. uses gabapentin 400mg QID with benefit without side effects. recently underwent bilateral C5-6 C6-7 MBB #1 with >80% improvement in pain while anesthetized. noted preop pain up to 11/22 post op pain 02/22. cc:: CC: Margo Urbano NP Review of Systems ROS Status of ROS 10 or more systems reviewed and unremarkable except as noted in history and below Meds Home Medications and Allergies Home Medications ?Medication ?Instructions ?Recorded ?Confirmed ?Type cyclobenzaprine 10 mg tablet 10 mg PO .HS 04/18/24 07/15/24 History ibuprofen 600 mg tablet (IBU) 600 mg PO TID PRN pain 04/18/24 07/15/24 History gabapentin 400 mg capsule 400 mg PO QID #120 caps 07/01/24 07/15/24 Rx gabapentin 400 mg capsule 400 mg PO QID #120 caps 07/31/24 Rx Allergies Allergy/AdvReac Type Severity Reaction Status Date / Time Sulfa (Sulfonamide Allergy Mild Unknown Verified 07/15/24 12:46 Antibiotics) Exam Narrative Exam Narrative: Psych-alert and oriented x 3.? Attentive and appropriate, constitutionally normal, displays normal mood and affect per situation.? There are no obvious deficits in memory, reasoning, or intellect.? Skin-no obvious rashes, bruising, or erythema noted to the patient's area of pain. Extremities-upper extremities are warm with minimal edema and palpable pulses. Cervical- tenderness to palpation noted in the cervical spine and paraspinal musculature.? Pain is elicited with extension, and lateral rotation of the cervical spine.? Range of motion is slightly diminished due to pain. Facet loading maneuvers are positive bilaterally.? Coordination remains intact.? Gait remains non-antalgic. Assessment and Plan Assessment and Plan (1) Cervical spondylosis: Plan 63yof who presents for assessment. failed conservative measures, as noted. imaging reviewed, as noted. given symptoms and imaging, prudent to attempt diagnostic bilateral c5-6, 6-7 medial branch block #2 with intention of proceeding to radiofrequency ablation. she is in agreement. meds reviewed no changes. f/u after injection.
== END 2024-08-07 15:09 | disposition home or self-care (01) ==
LOC: PM 15:09
PROVIDERS: Visit Provider Nurse Practitioner
DX: M47.812 Spondylosis without myelopathy or radiculopathy, cervical region (principal)
CPT/HCPCS: G0463

== ENCOUNTER 2024-08-12 10:33 | Day surgery (SDC) | payer MEDICARE, MEDICAID, SELFPAY ==
--- OUTSIDE RECORDS SUMMARY | 2024-05-27 09:45 | XMS_ITS ---
Author Organization [facility] vices Address [address], [place] [id number] Care Team Providers Care Diazo Technician Name Role Phone Mere Monteiro Primary Care Provider [phone] REASON FOR VISIT NE d/c 05/23 [place] - Heart Attack Social History Sex Assigned At : Social History Observation Description Sex Assigned At Female Encounters Encounter Location Date Provider Diagnosis Main [address] [place] [id number] 05/27/2024 Mere Monteiro Plan Of Treatment Next Appt Details Provider Name:Mere Monteiro, 12/26/2024 02:30:00 PM, [address] [place], [place], [id number], Provider Name:Mere Monteiro, 02/04/2025 01:15:00 PM, [address] [place], [place], [id number], Progress Notes * Alie AJ LDOB: 1960 (63 yo F)Acc No.[id number]:05/27/2024 Medical Note Patient: Shira Alie KURTZ Provider: Danny Monteiro MD :1960 A ge:63 Y S ex:Female Date:05/27/2024 Address:[address] [place] [address], [address], [place], [id number] Subjective: * Chief Complaints: * 1 . NH d/c 05/23 [place] - Heart Attack. * Medical History: Objective: * Vitals: Assessment: Plan: * Treatment: * Billing Information: * Visit Code: * Procedure Codes: * Electronic signature of Pema Monteiro MD on 08/12/2024 at 10:35 AM EDT Sign off status: Pending * Provider: Danny Monteiro MD Date: 0 05/27/2024 Generated for Ivy lam/Trae/Moreitting on: 0 08/12/2024 10:35 AM EDT
--- OUTSIDE RECORDS SUMMARY | 2024-08-05 10:00 | XMS_ITS ---
Author Organization [facility] vices Address [address] [place], [place] [address] Care Team Providers Care Pet Nutrition Specialist Name Role Phone Mere Monteiro Primary Care Provider Allergies Allergen (clinical drug ingredient) Drug/Non Drug Allergy documented on EMR Reaction Allergy Type Onset Date Status Substance with sulfonamide structure and antibacterial mechanism of action (substance) Sulfa Antibiotics Comments: does not remember Drug Allergy Active Results Component Value Reference Range Notes POCT A1C Reviewed date:08/05/2024 07:10:57 PM Interpretation: Performing Lab: Notes/Report: Result 5.7 0-5.6 % REASON FOR VISIT 3 month HLD, PreDM Medications Medication SIG (Take, Route, Frequency, Duration) Notes Start Date End Date Status Vitamin D 25 MCG (1000 UT) 1 tablet Orally Once a day Unknown Thiamine HCl 100 MG 1 tablet Orally Once a day Unknown Atorvastatin Calcium 10 MG 1 tablet Orally Once a day for 90 days 05/02/2024 Active Cyclobenzaprine HCl 10 MG 1 tablet at be dtime as needed Orally Once a day for 90 days Active busPIRone HCl 10 MG 1 tablet Orally Twic e a day for 90 days Active Ibuprofen 600 MG 1 tablet with food o r milk as needed Orally twice a day for 90 days Active Aspirin 81 81 MG 1 tablet Orally Once a day Active Vitamin B12 1000 MCG 1 tablet Orally Onc e a day Unknown Folic Acid 1 MG 1 tablet Orally Once a day for 90 days 05/02/2024 Active amLODIPine Besylate 2.5 MG TAKE 1 TABLET BY MOUTH EVERY DAY FOR 90 DAYS for 90 Active Metoprolol Tartrate 25 MG 1 tablet with food Orally Twice a day 12.5mg 12.5 mg Active DULoxetine HCl 60 MG TAKE 1 CAPSULE BY MOUTH EVERY DAY for 90 Active Valtrex 1 GM 2 tablets Orally twice a day for 1 days As needed cold sores Active Gabapentin 300 MG 1 tablet Orally four times daily Active busPIRone HCl 10 MG 1 tablet Orally Twic e a day Active Nicotine 7 MG/24HR 1 patch to skin Transdermal Once a day for 14 days 06/25/2024 Active Effient 10 MG as directed Orally Active Farxiga 10 MG 1 tablet Orally Once a day Active Nicotine 21 MG/24HR 1 patch to skin Transdermal Once a day for 49 days 06/25/2024 Active Nicotine 14 MG/24HR 1 patch to skin Transdermal Once a day for 14 days 06/25/2024 Active Social History Sex Assigned At : Social History Observation Description Sex Assigned At Female Vital Signs Temperature 98.9 degrees Fahrenheit 08/06/19 25 Weight 106.2 lbs 08/05/2024 Height 61.00 in 08/05/2024 BMI 20.06 kg/m2 08/05/2024 Blood pressure systolic 102 mm Hg 08/06/19 25 Blood pressure diastolic 63 mm Hg 025 Heart Rate 70 /min 08/05/2024 Respiratory Rate 18 /min 08/05/2024 Oximetry 96 % 08/05/2024 Weight-kg 48.17 kg 08/05/2024 Height-cm 154.94 cm 08/05/2024 Eunice Caal 08/05/2024 02 :06:36 PM EDT > Encounters Encounter Location Date Provider Diagnosis Main [address] [place], [place] [id number] 08/05/2024 Mere Cayetano Mixed hyperlipidemia E78.2 ; Prediabetes R73.03 and Cervical spondylosis without myelopathy M47.812 Assessments Encounter Date Diagnosis (ICD Code) Assessment Notes Treatment Notes Treatment Clinical Notes Section Notes 08/05/2024 Mixed hyperlipidemia (ICD-10 - E78.2) Due for repeat labs. Continue with statin and low fat 08/05/2024 Prediabetes (ICD-10 - R73.03) A1c 5.7 in prediabetic range. Advised to manage with diet and exercise. 08/05/2024 Cervical spondylosis without myelopathy (ICD-10 - M47.812) Plan Of Treatment Medication Medication Name Sig Start Date Stop Date Notes Atorvastatin Calcium 10 MG 1 tablet Oral ly Once a day for 90 days 05/02/2024 Cyclobenzaprine HCl 10 MG 1 tablet at be dtime as needed Orally Once a day for 90 days Treatment Notes Assessment Notes Mixed hyperlipidemia Due for repeat labs . Continue with statin and low fat Prediabetes A1c 5.7 in prediabet ic range. Advised to manage with diet and exercise. Pending Test Test Name Order Date LIPID PANEL WITH REFLEX TO DIRECT LDL Next Appt Details Follow Up: [facility] per pt winsome ilieaston, Reason: 6 months PreDM and HLD Provider Name:Mere Monteiro, 12/26/2024 02:30:00 PM, [address] [place], [id number], Provider Name:Mere Monteiro, 02/04/2025 01:15:00 PM, [address] [place], [id number], Progress Notes * Alie AJ LDOB: 1960 (63 yo F)Acc No.[id number]:08/05/2024 Medical Note Patient: Shira STEWARD Alie FULLER Provider: Danny Monteiro MD :1960 A ge:63 Y S ex:Female Date:08/05/2024 Address:[address] [place] [address], [address] Subjective: * Chief Complaints: * 3 month HLD, PreDM * HPI: I nterim History: HLD f/u: Atorvastatin 10 mg daily Tolerating Statin well. Last lab work: 04/06/2024 LDL 133 Prediabetes: Last A1c 5.9 from 07/04/2024. * ROS: N egative except mentioned above in the HPI. * Medical History: * Surgical History: C esarean Section - 3 or more Rotator Cuff Repair - Left Tonsillectomy and adenoidectomy RFA injections- several heart cath w 2 stents 05/07/24, 05/09/24 * Hospitalization/Major Diagno stic Procedure: s ee above stemi 2024-april * Medications: T akingbusPIRone HCl 10 MG Tablet 1 tablet Orally Twice a day Nicotine 21 MG/24HR Patch 24 Hour 1 patch to skin Transdermal Once a day Nicotine 14 MG/24HR Patch 24 Hour 1 patch to skin Transdermal Once a day Nicotine 7 MG/24HR Patch 24 Hour 1 patch to skin Transdermal Once a day Effient 10 MG Tablet as directed Orally Farxiga 10 MG Tablet 1 tablet Orally Once a day busPIRone HCl 10 MG Tablet 1 tablet Orally Twice a day Metoprolol Tartrate 25 MG Tablet 1 tablet with food Orally Twice a day 12.5mg, Notes to Pharmacist: 12.5 mgDULoxetine HCl 60 MG Capsule Delayed Release Particles TAKE 1 CAPSULE BY MOUTH EVERY DAY Valtrex 1 GM Tablet 2 tablets Orally twice a day As needed, Notes to Pharmacist: cold soresGabapentin 300 MG Capsule 1 tablet Orally four times daily Folic Acid 1 MG Tablet 1 tablet Orally Once a day Atorvastatin Calcium 10 MG Tablet 1 tablet Orally Once a day amLODIPine Besylate 2.5 MG Tablet TAKE 1 TABLET BY MOUTH EVERY DAY FOR 90 DAYS Cyclobenzaprine HCl 10 MG Tablet 1 tablet at bedtime as needed Orally Once a day Ibuprofen 600 MG Tablet 1 tablet with food or milk as needed Orally twice a day Aspirin 81 81 MG Tablet Delayed Release 1 tablet Orally Once a day Taking busPIRone HCl 10 MG Tablet 1 tablet Orally Twice a day Taking Nicotine 21 MG/24HR Patch 24 Hour 1 patch to skin Transdermal Once a day Taking Nicotine 14 MG/24HR Patch 24 Hour 1 patch to skin Transdermal Once a day Taking Nicotine 7 MG/24HR Patch 24 Hour 1 patch to skin Transdermal Once a day Taking Effient 10 MG Tablet as directed Orally Taking Farxiga 10 MG Tablet 1 tablet Orally Once a day Taking busPIRone HCl 10 MG Tablet 1 tablet Orally Twice a day Taking Metoprolol Tartrate 25 MG Tablet 1 tablet with food Orally Twice a day 12.5mg, Notes to Pharmacist: 12.5 mgTaking DULoxetine HCl 60 MG Capsule Delayed Release Particles TAKE 1 CAPSULE BY MOUTH EVERY DAY Taking Valtrex 1 GM Tablet 2 tablets Orally twice a day As needed, Notes to Pharmacist: cold soresTaking Gabapentin 300 MG Capsule 1 tablet Orally four times daily Taking Folic Acid 1 MG Tablet 1 tablet Orally Once a day Taking Atorvastatin Calcium 10 MG Tablet 1 tablet Orally Once a day Taking amLODIPine Besylate 2.5 MG Tablet TAKE 1 TABLET BY MOUTH EVERY DAY FOR 90 DAYS Taking Cyclobenzaprine HCl 10 MG Tablet 1 tablet at bedtime as needed Orally Once a day Taking Ibuprofen 600 MG Tablet 1 tablet with food or milk as needed Orally twice a day Taking Aspirin 81 81 MG Tablet Delayed Release 1 tablet Orally Once a day UnknownVitamin B12 1000 MCG Tablet Extended Release 1 tablet Orally Once a day Vitamin D 25 MCG (1000 UT) Tablet 1 tablet Orally Once a day Thiamine HCl 100 MG Tablet 1 tablet Orally Once a day Medication List reviewed and reconciled with the patientUnknown Vitamin B12 1000 MCG Tablet Extended Release 1 tablet Orally Once a day Unknown Vitamin D 25 MCG (1000 UT) Tablet 1 tablet Orally Once a day Unknown Thiamine HCl 100 MG Tablet 1 tablet Orally Once a day Medication List reviewed and reconciled with the patient * Allergies: S ulfa Antibiotics: Comments: does not remember - Allergyno[Allergies Verified] Objective: * Vitals: T emp:98.9F, Wt:106.2lbs, Ht: 61.00 in, BMI:20.06Index, BP:102/63mm Hg, HR:70/min, RR:18/min, Pain scale:61-10, Oxygen sat %:96%, Wt-k.17 kg, Ht-cm: 154.94 cm, Body Surface Area: 1.44. Eunice Caal 08/05/2024 02:06:36 PM EDT >. * Examination: G eneral Examination: G eneral appearance: alert, pleasant, well-nourished and in no acute distress. Head: normocephalic, atraumatic. Eyes: pupils equal, round, reactive to light and accommodation. Skin: skin is warm and dry, with no rashes, good skin turgor and normal hair distribution. Heart: regular rate and rhythm without murmurs, gallops, clicks or rubs. Lungs: clear to auscultation bilaterally, with good air movement and no rales, rhonchi or wheezes. Extremities: normal extremity with no clubbing, cyanosis or edema , full range of motion. Psych: alert and oriented x 3 , cooperative with exam , normal affect / mood , speech is clear and coherent. C QM Exceptions: Currently taking Aspirin: A spirin Use: Y es Assessment: * Assessment: 1. M ixed hyperlipidemia - E78.2 (Primary) 2 . P rediabetes - R73.03 ? 3 . C ervical spondylosis without myelopathy - M47.812 Plan: * Treatment: 2. P rediabetes L AB: POCT A1C (Collection Date & Time - 08/05/2024 02:17 PM) Value Reference Range R esult 5.7 H 0-5.6 - % Notes: A1c 5.7 in prediabetic range. Advised to manage with diet and exercise. ??3.?Cervical spondylosis without myelopathy? Refill Cyclobenzaprine HCl Tablet, 10 MG, 1 tablet at bedtime as needed, Orally, Once a day, 90 days, 90, Refills 1.?? * Procedure Codes: 8 3036 GLYCATED HEMOGLOBIN TEST, Modifiers: QW 3078F HTN DIAST BP < 424410F DM HG A1C < 93031U HTN SYST BP < 130 * Follow Up: W WE per pt feasibility (Reason: 6 months PreDM and HLD) * Billing Information: * Visit Code: 40267 Office Visit Est 30-39 minutes. * Procedure Codes: 89631 GLYCATED HEMOGLOBIN TEST. Modifiers: QW 3078F HTN DIAST BP < 80. 3044F DM HG A1C < 7. 3074F HTN SYST BP < 130. * Sign off status: Completed true * Provider: Danny Monteiro MD Date: 08/05/2024 Generated for Ivy lam/Trae/eTransmitting on: 08/12/2024 10:35 AM EDT History and Physical Notes * Examination Category Sub-Category Detail Notes Category Not es General Examination General appearance: alert, pleasant, well-nourished and in no acute distress. Head: normocephalic, atraumatic. Eyes: pupils equal, round, reactive to light and accommodation. Skin: skin is warm and dry, with no rashes, good skin turgor and normal hair distribution. Heart: regular rate and rhythm without murmurs, gallops, clicks or rubs. Lungs: clear to auscultation bilaterally, with good air movement and no rales, rhonchi or wheezes. Extremities: normal extremity with no clubbing, cyanosis or edema , full range of motion. Psych: alert and oriented x 3 , cooperative with exam , normal affect / mood , speech is clear and coherent. CQM Exceptions Currently taking Aspirin: Aspirin Use:: Yes
--- OUTSIDE RECORDS SUMMARY | 2024-08-12 10:35 | XMS_ITS | Encounter Summary ---
Author Organization [employer] Address [id number] [address] [place] [address] Care Team Providers Care Collections Agent Name Role Phone Services, [facility] Primary Care Provider Reason for Visit * Reason Comments Med Refill Encounter Details Date Type Department Care Team ([facility] Contact Info) Description 07/15/2021 Refill [facility] [address] [place] [address] Igor Holliday MD [address] [facility]. Provider retired 05/14/24 [place], [place] [id number] Social History Tobacco Use Types Packs/Day Years [...] [address] [place] [address] Julianna Hdez MD [address] [place] [address] documented as of this encounter Visit Diagnoses Not on filedocumented in this encounter Additional Health Concerns Assessment Noted Time PHQ-9 Depression Total Score: 3 11/04/19 21 2:00 PM EDT A Body Mass Index follow-up plan has been documented for the patient 06/18/2020 4:09 PM EDT documented as of this encounter Care Teams Collections Agent Relationship Specialty Start Date End Date Services, [facility] [address] [place], [place] PCP - General Family Medicine 05/07/24 documented as of this encounter
--- OUTSIDE RECORDS SUMMARY | 2024-08-12 10:35 | XMS_ITS | Encounter Summary ---
Author Organization [employer] Address [id number] [address] [place] [address] Care Team Providers Care Sand Hauler Name Role Phone Services, [facility] Primary Care Provider Encounter Details Date Type Department Care Team ([facility] Contact Info) Description 08/04/2021 Orders Only [facility] [address] [place] [address] Beatriz Ash, CUSTOMER CONTACT REPRESENTATIVE-HASHER OPERATOR [address] [place], [place] [phone] Social History Tobacco Use Types Packs/Day Years [...] [address] [place] [phone] Julianna Hdez MD [address] [place] [address] documented as of this encounter Visit Diagnoses Not on filedocumented in this encounter Additional Health Concerns Assessment Noted Time PHQ-9 Depression Total Score: 3 11/04/19 21 2:00 PM EDT A Body Mass Index follow-up plan has been documented for the patient 06/18/2020 4:09 PM EDT documented as of this encounter Care Teams Sand Hauler Relationship Specialty Start Date End Date Services, [facility] [address] [place] PCP - General Family Medicine 05/07/24 documented as of this encounter
--- OUTSIDE RECORDS SUMMARY | 2024-08-12 10:35 | XMS_ITS | Encounter Summary ---
Author Organization [employer] [facility] tem Address [facility] [id number] [address] [place] [address] Care Team Providers Care Manager Radiation Name Role Phone Services, [facility] Primary Care Provider Reason for Visit * Reason Comments Med Refill Encounter Details Date Type Department Care Team ([facility] st Contact Info) Description 10/16/2021 Refill [facility] [address] [place] [address] Mao San PA [address], [address] [place], [place] [phone] Spondylosis of cervical region without myelopathy or [...] requests. The patient must contact our office. [phone] * Telephone Encounter - Terra Rodriguez RN - 10/16/2021 5:03 AM EDT Patient left message yesterday regarding prescription. Call returned to patient to clarify. Patientstates she would like refill of Gabapentin and she would like it sent to [facility]. Upon review of chart patient, order for Gabapentin was signed on 11/11/2021. Per [facility] patient last filled 09/16/2021. Call placed to [facility] to see if there was an issue with the previously e-scribed order. Passenger Booking Clerk spoke with D[employer]io ([facility]) he confirms patient's last fill was 09/16/2021. Dionicio runs script throughinsurance to see if there was an insurance issue. He confirms that there is no issue and apologizesfor the delay. He states that he will prepare script for patient to picker feeder today. Call placed to patient to inform her of conversation with [facility]. She verbalized understanding. documented in this encounter Plan of Treatment Upcoming Encounters Date Type Department Care Team (Late st Contact Info) Description 10/07/2024 3:15 PM EDT Office Visit [facility] [address] [place] [phone] Julianna Hdez MD [address] [place] [address] documented as of this encounter Visit Diagnoses Diagnosis Spondylosis of cervical region without myelopathy or radiculopathy documented in this encounter Additional Health Concerns Assessment Noted Time PHQ-9 Depression Total Score: 3 09/21/20 21 2:00 PM EDT A Body Mass Index follow-up plan has been documented for the patient 06/18/2020 4:09 PM EDT documented as of this encounter Care Teams Manager Radiation Relationship Specialty Start Date End Date Services, [facility] [address] [place], [place] PCP - General Family Medicine 05/07/24 documented as of this encounter
--- OUTSIDE RECORDS SUMMARY | 2024-08-12 10:36 | XMS_ITS | Encounter Summary ---
Author Organization [facility] Address [id number] [address] [place] [address] Care Team Providers Care Health Promoter Name Role Phone Services, [facility] Primary Care Provider Reason for Visit * Reason Onset Date Comments Med Refill 03/11/2021 Encounter Details Date Type Department Care Team ([facility] st Contact Info) Description 03/11/2021 Refill [facility] [address] [place] [address] Orquidea Cloud CMA Social History [...] [address] [place] [phone] Julianna Hdez MD [address] [place] [address] documented as of this encounter Visit Diagnoses Not on filedocumented in this encounter Additional Health Concerns Assessment Noted Time PHQ-9 Depression Total Score: 3 11/04/19 21 2:00 PM EDT A Body Mass Index follow-up plan has been documented for the patient 06/18/2020 4:09 PM EDT documented as of this encounter Care Teams Health Promoter Relationship Specialty Start Date End Date Services, [facility] [address] [place], [place] PCP - General Family Medicine 05/07/24 documented as of this encounter
--- OUTSIDE RECORDS SUMMARY | 2024-08-12 10:36 | XMS_ITS | Encounter Summary ---
Author Organization [facility] Address [id number] [address] [place] [address] Care Team Providers Care Gas Leak Inspector Name Role Phone Services, [facility] Primary Care Provider Reason for Visit * Reason Comments Med Refill Encounter Details Date Type Department Care Team ([facility] Contact Info) Description 05/28/2022 Refill [facility] [address] [place] [address] Mao San PA [address] [facility] [address] [place], [place] [phone] Spondylosis of cervical region without myelopathy or [...] Upcoming Encounters Date Type Department Care Team ([facility] Contact Info) Description 10/07/2024 3:15 PM EDT Office Visit [facility] [address] [place] [phone] Julianna Hdez MD [address] [place] [address] documented as of this encounter Visit Diagnoses Diagnosis Spondylosis of cervical region without myelopathy or radiculopathy documented in this encounter Additional Health Concerns Assessment Noted Time PHQ-9 Depression Total Score: 3 11/12/19 22 10:00 AM EDT A Body Mass Index follow-up plan has been documented for the patient 06/18/2020 4:09 PM EDT documented as of this encounter Care Teams Gas Leak Inspector Relationship Specialty Start Date End Date Services, [facility] [address] [place], [place] PCP - General Family Medicine 05/07/24 documented as of this encounter
--- OUTSIDE RECORDS SUMMARY | 2024-08-12 10:36 | XMS_ITS | Encounter Summary ---
Author Organization [facility] Address [facility] [id number] [address] [place] [address] Care Team Providers Care Customer Service Advocate Name Role Phone Services, [facility] Primary Care Provider Reason for Visit * Reason Comments Med Refill Encounter Details Date Type Department Care Team ([facility] st Contact Info) Description 07/07/2019 Refill [facility] [address] [place] [address] Mao San PA [address], [address] [place], [place] [phone] Spondylosis of cervical region without myelopathy or [...] [address] [place] [address] Julianna Hdez MD [address] [place] [address] documented as of this encounter Visit Diagnoses Diagnosis Spondylosis of cervical region without myelopathy or radiculopathy documented in this encounter Additional Health Concerns Infection Onset Date Last Indicated Resolved Time COVID-19 Positive 09/03/2019 09/03/2019 09/24/2019 11:12 PM EDT documented as of this encounter Care Teams Customer Service Advocate Relationship Specialty Start Date End Date Services, [facility] [address] [place], [place] PCP - General Family Medicine 05/07/24 documented as of this encounter
--- OUTSIDE RECORDS SUMMARY | 2024-08-12 10:36 | XMS_ITS | Encounter Summary ---
Author Organization [employer] Address [facility] [place]-[id number] [address] [place] [address] Care Team Providers Care Captain Waiter/Waitress Name Role Phone Services, [facility] Primary Care Provider Reason for Visit * Reason Comments Med Refill Encounter Details Date Type Department Care Team ([facility] Contact Info) Description 09/12/2021 Refill [facility] [address] [place] [address] Igor Holliday MD [address]. Provider retired 05/14/24 [place], [place] [phone] Social History Tobacco Use Types Packs/Day Years [...] Upcoming Encounters Date Type Department Care Team ([facility] Contact Info) Description 10/07/2024 3:15 PM EDT Office Visit [facility] [address] [place] [address] Julianna Hdez MD [address] [place] [address] documented as of this encounter Visit Diagnoses Not on filedocumented in this encounter Additional Health Concerns Assessment Noted Time PHQ-9 Depression Total Score: 3 11/04/19 21 2:00 PM EDT A Body Mass Index follow-up plan has been documented for the patient 06/18/2020 4:09 PM EDT documented as of this encounter Care Teams Captain Waiter/Waitress Relationship Specialty Start Date End Date Services, [facility] [address] [place], [place] PCP - General Family Medicine 05/07/24 documented as of this encounter
--- OUTSIDE RECORDS SUMMARY | 2024-08-12 10:36 | XMS_ITS | Encounter Summary ---
Author Organization [facility] Address [facility]-[id number] [address] [place] [address] Care Team Providers Care Personal Fitness Trainer Name Role Phone Services, [facility] Primary Care Provider Reason for Visit * Reason Onset Date Comments Med Refill 08/31/2020 Encounter Details Date Type Department Care Team ([facility] Contact Info) Description 08/31/2020 Refill [facility] [address] [place] [address] Deepti Alvares LPN Social History [...] Upcoming Encounters Date Type Department Care Team ([facility] Contact Info) Description 10/07/2024 3:15 PM EDT Office Visit [facility] [address] [facility] [address] [place] [address] Julianna Hdez MD [address] [place] [address] documented as of this encounter Visit Diagnoses Not on filedocumented in this encounter Additional Health Concerns Assessment Noted Time PHQ-9 Depression Total Score: 0 06/19/19 3:00 PM EDT A Body Mass Index follow-up plan has been documented for the patient 06/18/2020 4:09 PM EDT documented as of this encounter Care Teams Personal Fitness Trainer Relationship Specialty Start Date End Date [facility], [facility] [address] [place], [place] PCP - General Family Medicine 05/07/24 documented as of this encounter
--- OUTSIDE RECORDS SUMMARY | 2024-08-12 10:36 | XMS_ITS | Encounter Summary ---
Author Organization [facility] Address [facility][id number] [address] [place] [address] Care Team Providers Care Plate Cleaner Name Role Phone Services, [facility] Primary Care Provider Encounter Details Date Type Department Care Team ([facility] Contact Info) Description 05/13/2020 Orders Only [facility] [address] [place] [address] Beatriz Ash, HEAD BOYS GOLF COACH-GERIATRIC PHYSICIAN [address] [place], [place] [phone] Social History Tobacco Use Types Packs/Day Years [...] [address] [place] [phone] Julianna Hdez MD [address] [place] [address] documented as of this encounter Visit Diagnoses Not on filedocumented in this encounter Care Teams Plate Cleaner Relationship Specialty Start Date End Date [facility], [facility], [facility] [address] [place], [place] PCP - General Family Medicine 05/07/24 documented as of this encounter
--- OUTSIDE RECORDS SUMMARY | 2024-08-12 10:36 | XMS_ITS | Clinical Summary ---
Author Organization manetch[employer] tem Address [facility] [place]-[id number] [address] [place] [address] Care Team Providers Care Rental Sales Agent Name Role Phone Services, [facility] Primary Care Provider Allergies Active Allergy Reactions [...] (STEMI) 05/07 Coronary artery disease invo lving houlton coronary artery of houlton heart 05/07/2024 Osteoarthritis of cervical spine 03/14/2018 Overview (03/14/2018): Added automatically from request for surgery [id number] Cervical spondylosis without myelopathy 11/04/19 18 HTN (hypertension) Encounters Date Type Department Care Team Description 06/17/2024 3:00 PM EDT Ancillary Procedure [facility] [address] [place] [phone] Teagan Carrillo PA-C Complete heart block (CMS-HCC) 06/17/2024 2:00 PM EDT Office Visit [facility] [address] [place] [address] Teagan Carrillo PA-C Coronary artery disease involving houlton coronary artery of houlton heart without angina pectoris (Primary Dx); Hypertension, unspecified type; Mixed hyperlipidemia; Chronic systolic heart failure (CMS-HCC); Complete heart block (CMS-HCC); Continuous tobacco abuse 06/17/2024 Telephone [facility] [address] [place] [address] Monica Sharif RN Life Vest issue 06/17/2024 Travel 06/14/2024 Telephone [facility] [address] [place] [address] Juana Eden CMA 05/30/2024 Abstract [facility] [address] [place] [address] External, Scanning Provider 05/21/2024 Telephone [facility] Neurology, A Department of [facility] [address] [place] [phone] Kristen Lainez New Patient 05/07/2024 3:54 PM EDT - 05/18/2024 7:38 PM EDT Hospital Encounter [facility] 6W Acute [address] [place] [phone] Maya Zavala MD Oostra, MD Grayson Alvarez, MD Maria Del Rosario Miranda, MD Franklyn Bella Kanchan M, MD ST elevation myocardial infarction involving left anterior descending (LAD) coronary artery (CMS-HCC) (Primary Dx); ST elevation myocardial infarction (STEMI), unspecified artery (CMS-HCC); CHB (complete heart block) (CMS-HCC); Coronary artery disease involving houlton coronary artery of houlton heart, unspecified whether angina present; Altered mental status, unspecified altered mental status type Discharge Disposition: [facility] Facility-Medicare Cert from Last 3 Months Immunizations Immunization Administration [...] drink = 0.6 oz pur e alcohol) [facility] Utilities Answer Date Recorded In the past 12 months has th e electric, gas, oil, or water company threatened to shut off services in your [...] [address] [place] [address] Julianna Hdez MD [address] [place] [address] Health Maintenance Due Date Last Done Comments [...] safe discharge. Medical Devices Implanted Type Area Phlebotomy Services Technician Device Identifier Shelf Expiration Date Model / Serial / Lot System Cor Stnt 2.75mm X 48mm 144cm Synergy Xd Mnrl Sean Pltn - [id number] Implanted:Qty : 1 on 05/07/2024 by Gilberto Zepeda MD at [facility] Stent N/A: Arterial [employer] [id number] 09/25/2025 [id number] / / [id number] System Cor Stnt 2.25mm X 15mm 145cm Xience Skypnt Mtlnk Sean - [id number] Implanted:Qty : 1 on 05/09/2024 by Gilberto Zepeda MD at [facility] Stent N/A: Arterial KINNEY [id number] 02/26/2026 [id number] / [id number] Procedures Procedure Name Priority Date/Time Associated Diagnosis [...] (NO DIFF) Routine 05/12/2024 5:52 AM EDT from Last 3 Months Results * Phosphorus (05/18/2024 5:19 AM EDT) Only the most recent of7 resultswithin the time period is included. Phosphorus 4.4 2.4 - 4.9 mg/dL 05/18/2024 6:39 AM EDT [facility] PLASMA 05/18/2024 5:19 AM EDT 05/18/2024 5:20 AM EDT us Alfa Gregory MD LAB BLOOD ORDERABLES Final Resul t [facility] [address] [place] [address] * Magnesium (05/18/2024 5:19 AM EDT) Only the most recent of8 resultswithin the time period is included. Magnesium 2.1 1.8 - 2.6 mg/dL 05/18/2024 6:39 AM EDT [facility] PLASMA 05/18/2024 5:19 AM EDT 05/18/2024 5:20 AM EDT us Alfa Gregory MD LAB BLOOD ORDERABLES Final Resul t Performing Organization Address City/[facility] Co de Phone Number [facility] [address] [place] [address], [facility] [address] [place] [address] * Ionized calcium (05/18/2024 5:19 AM EDT) Only the most recent of7 resultswithin the time period is included. Calcium, ionized 5.0 4.5 - 5.3 mg/dL 05/18/2024 6:45 AM EDT [facility] PLASMA 05/18/2024 5:19 AM EDT 05/18/2024 5:20 AM EDT us Alfa Gregory MD LAB BLOOD ORDERABLES Final Resul t Performing Organization Address [facility] Co de Phone Number [facility] [address] [place] [address], [facility] [address] [place] [address] * (ABNORMAL) Basic Metabolic Panel (05/18/2024 5:19 AM EDT) Sodium 134 134 - 146 mmol/L 05/18/2024 6:39 AM EDT [facility] Potassium, Bld 4.2 3.5 - 5.0 mmol/L 05/18/2024 6:39 AM EDT [facility] Chloride 99 98 - 109 mmol/L 05/18/2024 6:39 AM EDT [facility] CO2 25 22 - 32 mmol/L 05/18/2024 6:39 AM EDT [facility] Anion gap 10 5 - 15 mmol/L 05/18/2024 6:39 AM EDT [facility] BUN 8 5 - 27 mg/dL 05/18/2024 6:39 AM EDT [facility] Creatinine 0.44 0.40 - 1.00 mg/dL 05/18/2024 6:39 AM EDT [facility] Comment:METHOD TRACEABLE TO IDMS STANDARD Glucose 104(H) 65 - 99 mg/dL 05/18/2024 6:39 AM EDT [facility] Calcium 9.6 8.5 - 10.5 mg/dL 05/18/2024 6:39 AM EDT [facility] eGFR (CKD-EPI)non-ra ce dependent >90 >59 ml/min/1.7 3sq.m 05/18/2024 6:39 AM EDT [facility] Comment: Reported eGFR is based on the CKD-EPI 2020 equation that does not use a race coefficient. PLASMA 05/18/2024 5:19 AM EDT 05/18/2024 5:20 AM EDT us Alfa Gregory MD LAB BLOOD ORDERABLES Final Resul t [facility] [address] [place] [address] * (ABNORMAL) CBC without diff (05/17/2024 3:45 AM EDT) Only the most recent of6 resultswithin the time period is included. White Blood Cells 7.0 4.0 - 11.0 X10E9/L 05/17/2024 4:38 AM EDT [facility] RBC count 3.79(L) 3.80 - 5.20 X10E12/L 05/17/2024 4:38 AM EDT [facility] Hemoglobin 12.8 11.7 - 15.5 g/dL 05/17/2024 4:38 AM EDT [facility] Hematocrit 36.6 35 - 47 % 05/17/2024 4:38 AM EDT [facility] MCV 97 80 - 100 fL 05/17/2024 4:38 AM EDT [facility] MCH 33.7 27 - 34 pg 05/17/2024 4:38 AM EDT [facility] MCHC 34.9 32 - 36 g/dL 05/17/2024 4:38 AM EDT [facility] RDW 13.3 11.5 - 15.0 % 05/17/2024 4:38 AM EDT [facility] Platelets 388 150 - 450 X10E9/L 05/17/2024 4:38 AM EDT [facility] MPV 7.7 7 - 12 fL 05/17/2024 4:38 AM EDT [facility] Blood / Unknown 05/17/2024 3 :45 AM EDT 05/17/2024 3:46 AM EDT us Leobardo Greene PA-C LAB BLOOD ORDERABLES Final Result [facility] [address] [place] [address] * (ABNORMAL) Comprehensive metabolic panel (05/17/2024 3:45 AM EDT) Only the most recent of6 resultswithin the time period is included. Sodium 133(L) 134 - 146 mmol/L 05/17/2024 4:42 AM EDT [facility] Potassium, Bld 4.0 3.5 - 5.0 mmol/L 05/17/2024 4:42 AM EDT [facility] Chloride 100 98 - 109 mmol/L 05/17/2024 4:42 AM EDT [facility] CO2 23 22 - 32 mmol/L 05/17/2024 4:42 AM EDT [facility] Anion gap 10 5 - 15 mmol/L 05/17/2024 4:42 AM EDT [facility] BUN 12 5 - 27 mg/dL 05/17/2024 4:42 AM EDT [facility] Creatinine 0.48 0.40 - 1.00 mg/dL 05/17/2024 4:42 AM EDT [facility] Comment:METHOD TRACEABLE TO IDMS STANDARD Glucose 105(H) 65 - 99 mg/dL 05/17/2024 4:42 AM EDT [facility] Calcium 9.1 8.5 - 10.5 mg/dL 05/17/2024 4:42 AM EDT [facility] Total Protein 6.8 6.0 - 8.0 g/dL 05/17/2024 4:42 AM EDT [facility] Albumin 3.9 3.2 - 5.3 g/dL 05/17/2024 4:42 AM EDT [facility] Alkaline Phosphatase 77 39 - 130 U/L 05/17/2024 4:42 AM EDT [facility] AST 18 0 - 41 U/L 05/17/2024 4:42 AM EDT [facility] ALT 16 0 - 31 U/L 05/17/2024 4:42 AM EDT [facility] Total bilirubin 0.4 0.3 - 1.2 mg/dL 05/17/2024 4:42 AM EDT [facility] eGFR (CKD-EPI)non-rac e dependent >90 >59 ml/min/1.7 3sq.m 05/17/2024 4:42 AM EDT [facility] Comment: Reported eGFR is based on the CKD-EPI 2020 equation that does not use a race coefficient. PLASMA 05/17/2024 3:45 AM EDT 05/17/2024 3:46 AM EDT us Leobardo Greene PA-C LAB BLOOD ORDERABLES Final Result Performing Organization Address City/State/[facility] Co de Phone Number [employer] [address] [place] [address] * Bedside Glucose *Place/Obtain serum glucose if >500 per glucometer. (05/14/2024 9:10 AM EDT) Bedside glucose 86 65 - 99 mg/dL 05/14/2024 9:15 AM EDT Mad Mimi Blood / Unknown 05/14/2024 9 :10 AM EDT 05/14/2024 9:15 AM EDT Maya Zavala MD POINT OF CARE TEST ORDERAB LES Final Result [facility] * (ABNORMAL) Electrolyte panel (05/13/2024 12:54 PM EDT) Only the most recent of3 resultswithin the time period is included. Sodium 132(L) 134 - 146 mmol/L 05/13/2024 1:52 PM EDT [facility] Potassium, Bld 3.8 3.5 - 5.0 mmol/L 05/13/2024 1:52 PM EDT [facility] Chloride 97(L) 98 - 109 mmol/L 05/13/2024 1:52 PM EDT [facility] CO2 26 22 - 32 mmol/L 05/13/2024 1:52 PM EDT [facility] Anion gap 9 5 - 15 mmol/L 05/13/2024 1:52 PM EDT [facility] PLASMA 05/13/2024 12:5 4 PM EDT 05/13/2024 12:55 PM EDT us Alfa Gregory MD LAB BLOOD ORDERABLES Final Resul t [facility] [address] [place] [address] from Last 3 Months Insurance [place]ICAID [place] MEDICARE [facility] MEDICARE MEDICAID [place] Advance Directives * Full Code (Latest Code Status on File) Date Activated Date Inactivated Comments 05/08/2024 7:31 AM 05/18/2024 9:39 PM * Full Code Date Activated Date Inactivated Comments 05/07/2024 4:02 PM 05/07/2024 5:32 PM Care Teams Rental Sales Agent Relationship Specialty Start Date End Date Services, [address] [place], [place] PCP - General Family Medicine 05/07/24
--- OUTSIDE RECORDS SUMMARY | 2024-08-12 10:36 | XMS_ITS | Encounter Summary ---
Author Organization [employer] tem Address [id number] [address] [place] [address] Care Team Providers Care Shear Helper Name Role Phone Services, [facility] Primary Care Provider Reason for Visit * Reason Comments Med Refill Encounter Details Date Type Department Care Team ([facility] Contact Info) Description 11/17/2020 Refill [facility] [address] [place] [address] Beatriz Ash, MIKAELA-NAIL ARTIST [address] [place], [place] [phone] Social History Tobacco Use Types Packs/Day Years [...] [address] [place] [phone] Julianna Hdez MD [address] [place] [address] documented as of this encounter Visit Diagnoses Not on filedocumented in this encounter Additional Health Concerns Assessment Noted Time PHQ-9 Depression Total Score: 3 11/04/19 2:00 PM EDT A Body Mass Index follow-up plan has been documented for the patient 06/18/2020 4:09 PM EDT documented as of this encounter Care Teams Shear Helper Relationship Specialty Start Date End Date Services, [facility] [address] [place], [place] PCP - General Family Medicine 05/07/24 documented as of this encounter
--- OUTSIDE RECORDS SUMMARY | 2024-08-12 10:36 | XMS_ITS | Encounter Summary ---
Author Organization [facility] [employer] [facility] tem Address [id number] [address] [place] [address] Care Team Providers Care Datapower Developer Name Role Phone Services, [facility] Primary Care Provider Reason for Visit * Reason Onset Date Comments Med Refill 07/29/2019 Encounter Details Date Type Department Care Team (Late st Contact Info) Description 07/29/2019 Refill [facility] [address] [place] [address] Naida Bahena RN Spondylosis of [...] [address] [place] [phone] Julianna Hdez MD [address] [place] [address] documented as of this encounter Visit Diagnoses Diagnosis Spondylosis of cervical region without myelopathy or radiculopathy documented in this encounter Additional Health Concerns Infection Onset Date Last Indicated Resolved Time COVID-19 Positive 09/03/2019 09/03/2019 09/24/2019 11:12 PM EDT documented as of this encounter Care Teams Datapower Developer Relationship Specialty Start Date End Date Services, [facility] [address] [place], [place] PCP - General Family Medicine 05/07/24 documented as of this encounter
--- OUTSIDE RECORDS SUMMARY | 2024-08-12 10:36 | XMS_ITS | Encounter Summary ---
Author Organization [employer] [facility] [facility] tem Address [facility] [place]-[id number] [address] [place] [address] Care Team Providers Care Appliquer Name Role Phone Services, [facility] Primary Care Provider Reason for Visit * Reason Comments Med Refill Encounter Details Date Type Department Care Team ([facility] st Contact Info) Description 11/16/2018 Refill [facility] [address] [place] [address] Mao San PA [address] [place], [place] [phone] Spondylosis of cervical region without myelopathy or [...] [address] [place] [address] Julianna Hdez MD [address] [place] [address] documented as of this encounter Visit Diagnoses Diagnosis Spondylosis of cervical region without myelopathy or radiculopathy documented in this encounter Additional Health Concerns Infection Onset Date Last Indicated Resolved Time COVID-19 Positive 09/03/2019 09/03/2019 09/24/2019 11:12 PM EDT documented as of this encounter Care Teams Appliquer Relationship Specialty Start Date End Date Services, [facility] [address] [place], [place] PCP - General Family Medicine 05/07/24 documented as of this encounter
--- OUTSIDE RECORDS SUMMARY | 2024-08-12 10:36 | XMS_ITS | Encounter Summary ---
Author Organization [employer] Address [facility]-[id number] [address] [place] [address] Care Team Providers Care Electric Distribution Checker Name Role Phone Services, [facility] Primary Care Provider Encounter Details Date Type Department Care Team ([facility] Contact Info) Description 03/04/2021 Orders Only [facility] [address] [place] [address] Beatriz Ash, TALENT ACQUISITION LEAD-DELI WORKER [address] [place], [place] [phone] Social History Tobacco Use Types Packs/Day Years [...] [address] [place] [address] Julianna Hdez MD [address] [place] [address] documented as of this encounter Visit Diagnoses Not on filedocumented in this encounter Additional Health Concerns Assessment Noted Time PHQ-9 Depression Total Score: 3 11/04/19 21 2:00 PM EDT A Body Mass Index follow-up plan has been documented for the patient 06/18/2020 4:09 PM EDT documented as of this encounter Care Teams Electric Distribution Checker Relationship Specialty Start Date End Date Services, [facility] [address] [place], [place] PCP - General Family Medicine 05/07/24 documented as of this encounter
--- OUTSIDE RECORDS SUMMARY | 2024-08-12 10:36 | XMS_ITS | Encounter Summary ---
Author Organization [facility] [employer] [facility] tem Address [id number] [address] [place] [address] Care Team Providers Care Clinical Rn Liaison Name Role Phone Services, [facility] Primary Care Provider Reason for Visit * Reason Onset Date Comments Med Refill 05/15/2019 Encounter Details Date Type Department Care Team (Late st Contact Info) Description 05/15/2019 Refill [facility] [address] [place] [phone] Naida Bahena, DONTE Spondylosis of cervical region [...] [address] [place] [address] Julianna Hdez MD [address] [place] [address] documented as of this encounter Visit Diagnoses Diagnosis Spondylosis of cervical region without myelopathy or radiculopathy documented in this encounter Additional Health Concerns Infection Onset Date Last Indicated Resolved Time COVID-19 Positive 09/03/2019 09/03/2019 09/24/2019 11:12 PM EDT documented as of this encounter Care Teams Clinical Rn Liaison Relationship Specialty Start Date End Date Services, [facility] [address] [place], [place] PCP - General Family Medicine 05/07/24 documented as of this encounter
--- OUTSIDE RECORDS SUMMARY | 2024-08-12 10:36 | XMS_ITS | Encounter Summary ---
Author Organization [employer] tem Address [facility]-[id number] [address] [place] [address] Care Team Providers Care Draw In Hand Name Role Phone Services, [facility] Primary Care Provider Encounter Details Date Type Department Care Team ([facility] Contact Info) Description 07/09/2020 Telephone [facility] [address] [place] [phone] Jayson Ríos CNA Social History Tobacco Use [...] [address] [place] [phone] Julianna Hdez MD [address] [place] [address] documented as of this encounter Visit Diagnoses Not on filedocumented in this encounter Additional Health Concerns Assessment Noted Time PHQ-9 Depression Total Score: 0 06/19/19 21 3:00 PM EDT A Body Mass Index follow-up plan has been documented for the patient 06/18/2020 4:09 PM EDT documented as of this encounter Care Teams Draw In Hand Relationship Specialty Start Date End Date Services, [facility] [address] [place], [place] PCP - General Family Medicine 05/07/24 documented as of this encounter
--- OUTSIDE RECORDS SUMMARY | 2024-08-12 10:36 | XMS_ITS | Encounter Summary ---
Author Organization [facility] hospital[facility] tem Address [facility] [id number] [address] [place] [address] Care Team Providers Care Rehabilitation Worker Name Role Phone Services, [facility] Primary Care Provider Reason for Visit * Reason Comments Med Refill Encounter Details Date Type Department Care Team ([facility] st Contact Info) Description 12/03/2018 Refill [facility] [address] [place] [address] Mao San PA [address] [place], [place] [phone] Spondylosis of cervical region without myelopathy or [...] [address] [place] [address] Julianna Hdez MD [address] [place] [address] documented as of this encounter Visit Diagnoses Diagnosis Spondylosis of cervical region without myelopathy or radiculopathy documented in this encounter Additional Health Concerns Infection Onset Date Last Indicated Resolved Time COVID-19 Positive 09/03/2019 09/03/2019 09/24/2019 11:12 PM EDT documented as of this encounter Care Teams Rehabilitation Worker Relationship Specialty Start Date End Date Services, [facility] [address] [place], [place] PCP - General Family Medicine 05/07/24 documented as of this encounter
--- OUTSIDE RECORDS SUMMARY | 2024-08-12 10:36 | XMS_ITS | Encounter Summary ---
Author Organization [facility] [employer] [facility] tem Address [facility] [place]-[id number] [address] [place] [address] Care Team Providers Care Skip Pit Worker Name Role Phone Services, [facility] Primary Care Provider Reason for Visit * Reason Onset Date Comments Med Refill 07/30/2019 Encounter Details Date Type Department Care Team ([facility] Contact Info) Description 07/30/2019 Refill [facility] [address] [place] [address] Ceci Day RN Social History [...] Upcoming Encounters Date Type Department Care Team ([facility] Contact Info) Description 10/07/2024 3:15 PM EDT Office Visit [facility] [address] [phone] Julianna Hdez MD [address] [place] [address] documented as of this encounter Visit Diagnoses Not on filedocumented in this encounter Additional Health Concerns Infection Onset Date Last Indicated Resolved Time COVID-19 Positive 09/03/2019 09/03/2019 09/24/2019 11:12 PM EDT documented as of this encounter Care Teams Skip Pit Worker Relationship Specialty Start Date End Date Services, [facility] [address] [place], [place] PCP - General Family Medicine 05/07/24 documented as of this encounter
--- OUTSIDE RECORDS SUMMARY | 2024-08-12 10:36 | XMS_ITS | Encounter Summary ---
Author Organization [employer] Sys tem Address [facility] [id number] [address] [place] [address] Care Team Providers Care Breaker Engineer Name Role Phone Services, [facility] Primary Care Provider Encounter Details Date Type Department Care Team ([facility] Contact Info) Description 01/16/2024 Telephone [facility] - Family Medicine [address] [place] [phone] Jalyn Bernal CMA Social History Tobacco Use [...] [address] [place] [address] Julianna Hdez MD [address] [place] [address] documented as of this encounter Visit Diagnoses Not on filedocumented in this encounter Additional Health Concerns Assessment Noted Time PHQ-9 Depression Total Score: 3 11/12/19 22 10:00 AM EDT A Body Mass Index follow-up plan has been documented for the patient 06/18/2020 4:09 PM EDT documented as of this encounter Care Teams Breaker Engineer Relationship Specialty Start Date End Date Services, [facility] [address] [place], [place] PCP - General Family Medicine 05/07/24 documented as of this encounter
--- OUTSIDE RECORDS SUMMARY | 2024-08-12 10:36 | XMS_ITS | Encounter Summary ---
Author Organization [facility] s tem Address [facility] [place]-[id number] [address] [place] [address] Care Team Providers Care Pipeline Maintenance Supervisor Name Role Phone Services, [facility] Primary Care Provider Reason for Visit * Reason Comments Med Refill Encounter Details Date Type Department Care Team ([facility] st Contact Info) Description 10/31/2022 Refill [facility] [address] [place] [address] Mao San PA [address], [address] [place], [place] [phone] Spondylosis of cervical region without myelopathy or [...] requests. The patient must contact our office. [phone] documented in this encounter Plan of Treatment Upcoming Encounters Date Type Department Care Team (Late st Contact Info) Description 10/07/2024 3:15 PM EDT Office Visit [facility] Card[facility] [address] [place] [phone] Julianna Hdez MD [address] [place] [address] documented as of this encounter Visit Diagnoses Diagnosis Spondylosis of cervical region without myelopathy or radiculopathy documented in this encounter Additional Health Concerns Assessment Noted Time PHQ-9 Depression Total Score: 3 11/12/19 22 10:00 AM EDT A Body Mass Index follow-up plan has been documented for the patient 06/18/2020 4:09 PM EDT documented as of this encounter Care Teams Pipeline Maintenance Supervisor Relationship Specialty Start Date End Date Services, [facility] [address] [place], [place] PCP - General Family Medicine 05/07/24 documented as of this encounter
--- OUTSIDE RECORDS SUMMARY | 2024-08-12 10:36 | XMS_ITS | Encounter Summary ---
Author Organization [employer] Sys tem Address [facility] [place]-[id number] [address] [place] [address] Care Team Providers Care Grades 7 8 Tutor Name Role Phone Services, [facility] Primary Care Provider Reason for Visit * Reason Comments Med Refill Encounter Details Date Type Department Care Team ([facility] Contact Info) Description 08/17/2022 Refill [facility] [address] [place] [address] Beatriz Ash APRN-CITRUS FRUIT PACKER [address], [place] [phone] Social History Tobacco Use Types Packs/Day Years [...] [address] [place] [address] Julianna Hdez MD [address] [place] [address] documented as of this encounter Visit Diagnoses Not on filedocumented in this encounter Additional Health Concerns Assessment Noted Time PHQ-9 Depression Total Score: 3 11/12/19 22 10:00 AM EDT A Body Mass Index follow-up plan has been documented for the patient 06/18/2020 4:09 PM EDT documented as of this encounter Care Teams Grades 7 8 Tutor Relationship Specialty Start Date End Date Services, [facility] [address] [place], [place] PCP - General Family Medicine 05/07/24 documented as of this encounter
--- OUTSIDE RECORDS SUMMARY | 2024-08-12 10:36 | XMS_ITS | Encounter Summary ---
Author Organization [employer] [facility] tem Address [facility]-[id number] [address] [place] [address] Care Team Providers Care Evp Of Products & Co Founder Name Role Phone Services, [facility] Primary Care Provider Reason for Visit * Reason Comments Med Refill Encounter Details Date Type Department Care Team ([facility] st Contact Info) Description 03/12/2020 Refill [facility] [address] [place] [address] Mao San PA [address], [address] [place], [place] [phone] Spondylosis of cervical region without myelopathy or [...] requests. The patient must contact our office. [phone] documented in this encounter Plan of Treatment Upcoming Encounters Date Type Department Care Team (Late st Contact Info) Description 10/07/2024 3:15 PM EDT Office Visit [facility] [address] [place] [phone] Julianna Hdez MD [address] [place] [address] documented as of this encounter Visit Diagnoses Diagnosis Spondylosis of cervical region without myelopathy or radiculopathy documented in this encounter Care Teams Ev[employer] Products [employer] Founder Relationship Specialty Start Date End Date Services, [facility] [address] [place], [place] PCP - General Family Medicine 05/07/24 documented as of this encounter
--- OUTSIDE RECORDS SUMMARY | 2024-08-12 10:36 | XMS_ITS | Encounter Summary ---
Author Organization [employer] Sys tem Address [facility]-[id number] [address] [place] [address] Care Team Providers Care Dairy Husbandry Teacher Name Role Phone Services, [facility] Primary Care Provider Reason for Visit * Reason Comments Med Refill Encounter Details Date Type Department Care Team ([facility] Contact Info) Description 09/09/2020 Refill [facility] [address] [place] [address] Iogr Holliday MD [address]. Provider retired 05/14/24 [place], [place] [phone] Social History Tobacco Use Types Packs/Day Years [...] Upcoming Encounters Date Type Department Care Team ([facility] Contact Info) Description 10/07/2024 3:15 PM EDT Office Visit [facility] [address] [place] [address] Julianna Hdez MD [address] [place] [address] documented as of this encounter Visit Diagnoses Not on filedocumented in this encounter Additional Health Concerns Assessment Noted Time PHQ-9 Depression Total Score: 0 06/19/19 21 3:00 PM EDT A Body Mass Index follow-up plan has been documented for the patient 06/18/2020 4:09 PM EDT documented as of this encounter Care Teams Dairy Husbandry Teacher Relationship Specialty Start Date End Date Services, [facility] [address] [place], [place] PCP - General Family Medicine 05/07/24 documented as of this encounter
--- OUTSIDE RECORDS SUMMARY | 2024-08-12 10:36 | XMS_ITS | Encounter Summary ---
Author Organization [facility] tem Address [facility]-[id number] [address] [place] [address] Care Team Providers Care Hospital Laboratory Technician Name Role Phone Services, [facility] Primary Care Provider Encounter Details Date Type Department Care Team ([facility] Contact Info) Description 06/10/2022 Orders Only [facility] [address] [place] [address] Beatriz Ash, ROVING TECHNICIAN-BIODIESEL DIVISION MANAGER [address] [place], [place] [phone] Social History Tobacco Use Types Packs/Day Years [...] Upcoming Encounters Date Type Department Care Team ([facility] Contact Info) Description 10/07/2024 3:15 PM EDT Office Visit [facility] [address] [facility] 1 [place] [address] Julianna Hdez MD [address] [place] [address] documented as of this encounter Visit Diagnoses Not on filedocumented in this encounter Additional Health Concerns Assessment Noted Time PHQ-9 Depression Total Score: 3 11/12/19 22 10:00 AM EDT A Body Mass Index follow-up plan has been documented for the patient 06/18/2020 4:09 PM EDT documented as of this encounter Care Teams Hospital Laboratory Technician Relationship Specialty Start Date End Date Services, [facility] [address] [place], [place] PCP - General Family Medicine 05/07/24 documented as of this encounter
--- OUTSIDE RECORDS SUMMARY | 2024-08-12 10:36 | XMS_ITS | Encounter Summary ---
Author Organization [employer] Sys tem Address [facility]-[id number] [address] [place] [address] Care Team Providers Care Plastic Bubble Packer Name Role Phone Services, [facility] Primary Care Provider Reason for Visit * Reason Comments Med Refill Encounter Details Date Type Department Care Team ([facility] Contact Info) Description 09/28/2022 Refill [facility] [address] [place] [address] Beatriz Ash APRN-TOE SEWER [address] [place], [place] [phone] Social History Tobacco Use Types Packs/Day Years [...] [address] [place] [address] Julianna Hdez MD [address] [place] [address] documented as of this encounter Visit Diagnoses Not on filedocumented in this encounter Additional Health Concerns Assessment Noted Time PHQ-9 Depression Total Score: 3 11/12/19 22 10:00 AM EDT A Body Mass Index follow-up plan has been documented for the patient 06/18/2020 4:09 PM EDT documented as of this encounter Care Teams Plastic Bubble Packer Relationship Specialty Start Date End Date Services, [facility] [address] [place], [place] PCP - General Family Medicine 05/07/24 documented as of this encounter
--- OUTSIDE RECORDS SUMMARY | 2024-08-12 10:36 | XMS_ITS | Encounter Summary ---
Author Organization [facility] [facility] Address [facility]-[id number] [address] [place] [address] Care Team Providers Care Clinical Research Assistant Name Role Phone Services, [facility] [address] [facility] Primary Care Provider Reason for Visit * Reason Comments Med Refill Encounter Details Date Type Department Care Team ([facility] st Contact Info) Description 11/27/2022 Refill [facility] [address] [place] [address] Mao San PA [address], [address] [place], [place] [phone] Spondylosis of cervical region without myelopathy or [...] requests. The patient must contact our office. [phone] documented in this encounter Plan of Treatment Upcoming Encounters Date Type Department Care Team (Late st Contact Info) Description 10/07/2024 3:15 PM EDT Office Visit [facility] [address] [place] [phone] Julianna Hdez MD [address] [place] [address] documented as of this encounter Visit Diagnoses Diagnosis Spondylosis of cervical region without myelopathy or radiculopathy documented in this encounter Additional Health Concerns Assessment Noted Time PHQ-9 Depression Total Score: 3 11/12/19 22 10:00 AM EDT A Body Mass Index follow-up plan has been documented for the patient 06/18/2020 4:09 PM EDT documented as of this encounter Care Teams Clinical Research Assistant Relationship Specialty Start Date End Date Services, [facility] [address] [facility] [address] [place], [place] PCP - General Family Medicine 05/07/24 documented as of this encounter
--- OUTSIDE RECORDS SUMMARY | 2024-08-12 10:36 | XMS_ITS | Encounter Summary ---
Author Organization [facility] tem Address [facility] [place][id number] [address] [place] [address] Care Team Providers Care Fuel Agent Name Role Phone Services, [facility] Primary Care Provider Reason for Visit * Reason Onset Date Comments Med Refill 02/26/2019 Encounter Details Date Type Department Care Team (Late Contact Info) Description 02/26/2019 Refill [facility] - [facility] [address] [place] [address] Ceci Day, DONTE Spondylosis of [...] [facility] [address] [facility] 1 [place] [address] Julianna Hdez MD [address] [place] [address] documented as of this encounter Visit Diagnoses Diagnosis Spondylosis of cervical region without myelopathy or radiculopathy documented in this encounter Additional Health Concerns Infection Onset Date Last Indicated Resolved Time COVID-19 Positive 09/03/2019 09/03/2019 09/24/2019 11:12 PM EDT documented as of this encounter Care Teams Fuel Agent Relationship Specialty Start Date End Date [facility], [facility] [address] [place] [address] PCP - General Family Medicine 05/07/24 documented as of this encounter
--- OUTSIDE RECORDS SUMMARY | 2024-08-12 10:36 | XMS_ITS | Encounter Summary ---
Author Organization [employer] Sys tem Address [facility] [place]-[id number] [address] [place] [address] Care Team Providers Care Disability Attorney Name Role Phone Services, [facility] Primary Care Provider Encounter Details Date Type Department Care Team ([facility] Contact Info) Description 10/14/2020 Telephone [facility] [address] [place] [address] Beatriz Ash, CLERICAL SPECIALIST-INTERVENTIONAL NEURORADIOLOGIST [address] [place], [place] [phone] Social History Tobacco Use Types Packs/Day Years [...] you can send some medicine in to [facility] in [place] for her Also, how long should I [...] [address] [place] [phone] Julianna Hdez MD [address] [place] [address] documented as of this encounter Visit Diagnoses Not on filedocumented in this encounter Additional Health Concerns Assessment Noted Time PHQ-9 Depression Total Score: 0 06/19/19 21 3:00 PM EDT A Body Mass Index follow-up plan has been documented for the patient 06/18/2020 4:09 PM EDT documented as of this encounter Care Teams Disability Attorney Relationship Specialty Start Date End Date [facility], [facility] [address] [place], [place] PCP - General Family Medicine 05/07/24 documented as of this encounter
--- OUTSIDE RECORDS SUMMARY | 2024-08-12 10:36 | XMS_ITS | Encounter Summary ---
Author Organization [employer] Sys tem Address [facility] [place] [place]-[id number] [address] [place] [address] Care Team Providers Care Sanitation Director Name Role Phone Services, [facility] Primary Care Provider Reason for Visit * Reason Comments Med Refill Encounter Details Date Type Department Care Team ([facility] Contact Info) Description 06/09/2022 Refill [facility] [address] [place] [address] Beatriz Ash, [facility] [address] [place], [place] [phone] Social History Tobacco Use Types Packs/Day Years [...] Upcoming Encounters Date Type Department Care Team ([facility] Contact Info) Description 10/07/2024 3:15 PM EDT Office Visit [facility] [address] [place] [address] Julianna Hdez MD [address] [place] [address] documented as of this encounter Visit Diagnoses Not on filedocumented in this encounter Additional Health Concerns Assessment Noted Time PHQ-9 Depression Total Score: 3 11/12/19 22 10:00 AM EDT A Body Mass Index follow-up plan has been documented for the patient 06/18/2020 4:09 PM EDT documented as of this encounter Care Teams Sanitation Director Relationship Specialty Start Date End Date Services, [facility] [address] [place], [place] PCP - General Family Medicine 05/07/24 documented as of this encounter
--- OUTSIDE RECORDS SUMMARY | 2024-08-12 10:36 | XMS_ITS | Encounter Summary ---
Author Organization [employer] Address [facility] [place]-[id number] [address] [place] [address] Care Team Providers Care Lathe Puller Name Role Phone Services, [facility] Primary Care Provider Reason for Visit * Reason Comments Med Refill Encounter Details Date Type Department Care Team ([facility] Contact Info) Description 07/09/2022 Refill [facility] [address] [place] [address] Beatriz Ash APRN-TRAFFIC INSPECTOR [address] [place], [place] [phone] Social History Tobacco Use Types Packs/Day Years [...] [address] [place] [address] Julianna Hdez MD [address] [place] [address] documented as of this encounter Visit Diagnoses Not on filedocumented in this encounter Additional Health Concerns Assessment Noted Time PHQ-9 Depression Total Score: 3 11/12/19 22 10:00 AM EDT A Body Mass Index follow-up plan has been documented for the patient 06/18/2020 4:09 PM EDT documented as of this encounter Care Teams Lathe Puller Relationship Specialty Start Date End Date Services, [facility] [address] [place], [place] PCP - General Family Medicine 05/07/24 documented as of this encounter
[2024-08-12 10:59] VITALS: BP 113/75; PULSE 69; TEMP 36.3; O2SAT 100
[2024-08-12 11:49] VITALS: BP 105/54; BP 98/53; PULSE 55; PULSE 59; O2SAT 100
[2024-08-12] MEDS: BUPIVACAINE HCL 0.25% PF 25 MG/10 ML VIAL 6 ML INJ (11:50)
[2024-08-12] MEDS: LIDOCAINE HCL 2% 400 MG/20 ML MDV INJ (11:50)
--- NOTE | 2024-08-12 11:53 | W.PM.PROCNOT ---
Date of procedure: 08/12/24 Pre-op diagnosis: Pain due to cervical spondylosis without myelopathy Post-op diagnosis: same as pre-op Procedure: Procedure: Bilateral C5-6, 6-7 medial branch block Medications: Bupivacaine 0.25% 6cc The patient was seen and examined in the preoperative holding area.? The informed consent was obtained and placed on the chart.? The patient was brought to the medical procedure unit and placed in the prone position.? A timeout was completed verifying correct patient, procedure site, positioning, plan, and special equipment.? Using aseptic technique, the needle was placed at left C5.? Under direct fluoroscopic visualization, a Quincke tip needle was advanced to the midpoint of the waist of the articular pillar at the respective medial branch segment. The above-mentioned injectate was placed in a 1 mL aliquot proceeded by negative aspiration.? The needle was removed.? The procedure was completed at all left C6, 7. The same procedure, at the same levels, was then completed on the right side. Insertion site was covered.? Patient was taken to the postprocedural recovery area and monitored for an appropriate length of time before found suitable for discharge in the accompaniment of a responsible adult. Anesthesia: Local Surgeon: Alexander Mayers Pathology: none sent Condition: stable Disposition: no change
== END 2024-08-12 11:58 | disposition home or self-care (01) ==
LOC: SURGOUT 10:34
PROVIDERS: Visit Provider Anesthesiology
DX: M47.812 Spondylosis without myelopathy or radiculopathy, cervical region (principal); M54.2 Cervicalgia
CPT/HCPCS: 64490; 64491; J0665

== ENCOUNTER 2024-08-15 13:12 | Outpatient (OUT) | payer MEDICARE, MEDICAID, SELFPAY ==
--- NOTE | 2024-08-15 13:40 | PM.CN ---
Consult Note: HPI Data of Consult Patient: known to practice within the last 3 years Consult date: 08/15/24 Requesting Physician: Margo Urbano NP Primary Care Provider: Non-Staff Physician, MD Consult Narrative Reason for consult: neck pain Narrative: 63yof who presents for assessment. persistence of pain in neck, bilateral shoulder area. 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 previously has cervical rfa, with good benefit of >50% for >3 months. last done about 10 years ago. continues in a series of provider directed home exercises >6 weeks, without lasting benefit. uses gabapentin 400mg QID and flexeril 10mg HS PRN with benefit without side effects. recently underwent bilateral C5-6 C6-7 MBB #1 and #2 with >80% improvement in pain while anesthetized. noted preop pain up to 11/22 post op pain 02/22. cc:: CC: Margo Urbano NP Review of Systems ROS Status of ROS 10 or more systems reviewed and unremarkable except as noted in history and below Meds Home Medications and Allergies Home Medications �Medication �Instructions �Recorded �Confirmed �Type cyclobenzaprine 10 mg tablet 10 mg PO .HS 04/18/24 08/12/24 History ibuprofen 600 mg tablet (IBU) 600 mg PO TID PRN pain 04/18/24 08/12/24 History gabapentin 400 mg capsule 400 mg PO QID #120 caps 07/01/24 08/12/24 Rx gabapentin 400 mg capsule 400 mg PO QID #120 caps 07/31/24 08/12/24 Rx Allergies Allergy/AdvReac Type Severity Reaction Status Date / Time Sulfa (Sulfonamide Allergy Mild Unknown Verified 08/12/24 10:58 Antibiotics) Exam Narrative Exam Narrative: Psych-alert and oriented x 3.� Attentive and appropriate, constitutionally normal, displays normal mood and affect per situation.� There are no obvious deficits in memory, reasoning, or intellect.� Skin-no obvious rashes, bruising, or erythema noted to the patient's area of pain. Extremities-upper extremities are warm with minimal edema and palpable pulses. Cervical- tenderness to palpation noted in the cervical spine and paraspinal musculature.� Pain is elicited with extension, and lateral rotation of the cervical spine.� Range of motion is slightly diminished due to pain. Facet loading maneuvers are positive bilaterally.� Coordination remains intact.� Gait remains non-antalgic. Assessment and Plan Assessment and Plan (1) Cervical spondylosis: Plan 63yof who presents for assessment. failed conservative measures, as noted. imaging reviewed, as noted. given symptoms and imaging, prudent to attempt left then right c5-6, 6-7 medial branch radiofrequency ablation. she is in agreement. meds reviewed no changes. f/u 1 month after RFAs complete
== END 2024-08-15 13:13 | disposition home or self-care (01) ==
PROVIDERS: Visit Provider Nurse Practitioner
DX: M47.812 Spondylosis without myelopathy or radiculopathy, cervical region (principal)
CPT/HCPCS: G0463

== ENCOUNTER 2024-09-30 11:49 | Day surgery (SDC) | payer MEDICARE, MEDICAID, SELFPAY ==
--- OUTSIDE RECORDS SUMMARY | 2024-09-09 11:00 | XMS_ITS ---
Author Organization [facility] vices Address [address] [place], [place] [id number] Care Team Providers Care Woods Superintendent Name Role Phone Mere Monteiro Primary Care Provider REASON FOR VISIT Discuss KANG testing results Social History Sex Assigned At : Social History Observation Description Sex Assigned At Female Encounters Encounter Location Date Provider Diagnosis Main [address] [place] [id number] 09/09/2024 Mere Monteiro Plan Of Treatment Next Appt Details Provider Name:Mere Monteiro, 10/03/2024 01:15:00 PM, [address] [place], [id number], Provider Name:Mere Monteiro, 12/26/2024 02:30:00 PM, [address] [place], [id number], Provider Name:Mere Monteiro, 02/04/2025 01:15:00 PM, [address] [place], [id number], Progress Notes * Alie AJ LDOB: 1960 (64 yo F)Acc No.[id number]:09/09/2024 Medical Note Patient: Shira Alie KURTZ Provider: Danny Monteiro MD :1960 A ge:63 Y S ex:Female Date:09/09/2024 Address:[address] [place] [address], [address] Subjective: * Chief Complaints: * 1 . Discuss KANG testing results. * Medical History: Objective: * Vitals: Assessment: Plan: * Treatment: * Billing Information: * Visit Code: * Procedure Codes: * Electronic signature of Pema Monteiro MD on 09/30/2024 at 11:51 AM EDT Sign off status: Pending * Provider: Danny Monteiro MD Date: 09/09/2024 Generated for Ivy lam/Trae/Torysmitting on: 0 09/30/2024 11:51 AM EDT
--- OUTSIDE RECORDS SUMMARY | 2024-09-12 21:16 | XMS_ITS | Encounter Summary ---
Author Organization [facility] tem Address [id number] [address] [place] [address] Care Team Providers Care Drilling Fluids Specialist Name Role Phone Services, [facility] Primary Care Provider Reason for Visit * Auth/Cert Specialty Diagnoses / Procedures Referred By Clari enamorado Referred To Contact Diagnoses Sepsis [facility] [address] [place] [phone] Referral ID Status Reason Start Date Expiration Date Visits Re quested Visits Authorized [id number] 1 1 Encounter Details Date Type Department Care Team (Latest Contact Info) Description 09/12/2024 9:16 PM EDT - 09/18/2024 6:15 PM EDT Hospital Encounter [facility] Division of [facility] - 8 Med-Surg/Ortho [address] [place] [id number] Kylie Link MD [address] [facility] [address] [place] [address] Reyes Jones MD [address], [facility] [address] [place] [address] Discharge Disposition: Home Health Social History Tobacco Use Types Packs/Day Years Used Date Smoking Tobacco: Every Day Cigarettes Smokeless Tobacco: Never Comments:Patient states she drinks a lot. Alcohol Use Standard Drinks/Week Comments Yes 0 (1 standard drink = 0.6 oz pur e alcohol) [facility] Utilities Answer Date Recorded In the past 12 months has [employer], gas, oil, or water company threatened to shut off services in your home? Patient unable to answer 09/12/2024 AUDIT-C Answer Date Recorded Frequency of Alcohol [...] from getting medications? Patient unable to answer 09/12/2024 In the past 12 months, has l ack of transportation kept you from meetings, work, or from getting things needed for daily living? Patient unable to answer 09/12/2024 Housing Instability Answer Date Recorde d Are you worried or concerned that in the next two months you may not have stable housing that you own, rent or stay in as a part of a household? Patient unable to answer 09/12/2024 Childcare Answer Date Recorded Childcare Unknown 07/20/2018 Employment Answer Date Recorded Employment Unknown 07/20/2018 Hunger Screening Answer Date Recorded Within the past 12 months we worried whether our food would run out before we got money to buy more. Never True 09/13/2024 Within the past 12 months th e food we bought just didn't last and we didn't have money to get more. Never True 09/13/2024 Purpose - Life Answer Date Recorded Purpose and direction in life Unknown Comments No Sex and Gender Information Value Date Recorded Sex Assigned at Not on file Legal Sex Female 9:44 PM EDT Gender Identity Not on file Sexual Orientation Not on file documented as of this encounter Last Filed Vital Signs Vital Sign Reading Time Taken Comments Blood Pressure 142/70 09/18/2024 7:00 AM EDT Pulse 96 09/18/2024 7:00 AM EDT Temperature 37 C (98.6 F) 09/18/2024 7:00 AM EDT Respiratory Rate 17 09/18/2024 7:00 AM EDT Oxygen Saturation 97% 09/18/2024 4:18 AM EDT Inhaled Oxygen Concentration - - Weight 51.5 kg (113 lb 8.6 oz) 09/17/2024 5:00 A M EDT Height 154.9 cm (5' 1 ) 09/13/2024 3:00 AM EDT Body Mass Index 21.45 09/13/2024 3:00 AM EDT documented in this encounter Functional Status documented as of this encounter Mental Status * Question Answer Entry Date Author Overall Cognitive Status X 09/18/2024 10:28 AM EDT Tonya Milian OTA/L documented in this encounter Medications at Time of Discharge aspirin 81 mg chewable tablet Chew 1 tablet (81 mg total) and swallow in the morning for 360 days. 90 tablet 3 06/17/2024 06/13/19 26 atorvastatin (LIPITOR) 80 mg tablet Take 1 tablet (80 mg total) by mouth nightly. 90 tablet 3 06/17/2024 busPIRone (BUSPAR) 10 mg tablet Take 1 tablet (10 mg total) by mouth in the morning and 1 tablet (10 mg total) before bedtime. 05/18/2024 clopidogreL (PLAVIX) 75 mg tablet Take 1 tablet (75 mg total) by mouth in the morning. 30 tablet 1 09/19/2024 dapagliflozin propanediol (FARXIGA) 10 mg tablet Take 1 tablet (10 mg total) by mouth in the morning for 360 days. 90 tablet 3 06/17/2024 06/13/19 26 DULoxetine (CYMBALTA) 60 mg capsule Take 1 capsule (60 mg total) by mouth in the morning. 05/18/2024 folic acid (FOLVITE) 1 mg tablet Take 1 tablet (1 mg total) by mouth in the morning. 05/18/2024 gabapentin (NEURONTIN) 300 mg capsule Take 1 capsule (300 mg total) by mouth in the morning and 1 capsule (300 mg total) at noon and 1 capsule (300 mg total) in the evening and 1 capsule (300 mg total) before bedtime. metoprolol succinate XL (TOPROL XL) 25 mg 24 hr tabletIndication s:Chronic systolic heart failure (CMS-HCC) Take 0.5 tablets (12.5 mg total) by mouth in the morning. 45 tablet 3 06/17/2024 nicotine polacrilex (NICORETTE) 4 MG gumIndications:C ontinuous tobacco abuse Chew 1 each (4 mg total) as directed as needed for smoking cessation. As recommended on Nicorette gum label, weeks 1-6 1 piece every 1-2 hours, week 7-9 1 piece every 2-4 hours, weeks 10-12 1 piece every 4-8 hours. Do not use nicotine gum simultaneously with other tobacco product 100 each 3 06/17/2024 sennosides-docus ate sodium (SENOKOT-S) 8.6-50 mg Take 2 tablets by mouth 2 (two) times a day as needed for constipation. 05/18/2024 spironolactone (ALDACTONE) 25 mg tablet Take 1 tablet (25 mg total) by mouth in the morning. 90 tablet 3 06/17/2024 thiamine HCl (VITAMIN B-1) 100 mg tablet Take 1 tablet (100 mg total) by mouth in the morning. 05/18/2024 valsartan (DIOVAN) 40 mg tablet Take 1 tablet (40 mg total) by mouth in the morning and 1 tablet (40 mg total) before bedtime. 90 tablet 3 06/17/2024 documented as of this encounter Progress Notes * Maya Luciano MD - 09/18/2024 10:32 AM EDT Images from the original note were not included. [facility] [address] [place] [address] PROGRESS NOTE Alie Lowe It was resting comfortably in bed. She denies chest pain, syncope, palpitations, shortness or breath. No acute events overnight per telemetry. SUBJECTIVE Allergies: Allergies Allergen Reactions Sulfa (Sulfonamide Antibiotics) Itching and Rash CURRENT MEDICATIONS atorvastatin, 80 mg, oral, Nightly busPIRone, 10 mg, oral, BID gabapentin, 300 mg, oral, TID heparin (porcine), 5,000 Units, subcutaneous, Q12H KAMILAH nicotine, 1 patch, transdermal, Daily piperacillin-tazobactam (ZOSYN) IV, 3.375 g, intravenous, Q8H CONTINUOUS INFUSIONS cangrelor (KENGREAL) 50 mg in sodium chloride 0.9 % 250 mL (0.2 mg/mL) infusion, 0.75 mcg/kg/min, Last Rate: 0.75 mcg/kg/min (09/17/242117) dextrose 5 % in water, 100 mL/hr Review of Systems: Cardiovascular: No chest pain, dyspnea on exertion, palpitations or loss of consciousness. No pleuritic pain Respiratory: No cough or wheezing, no sputum production, no hemoptysis Neurological: No headache or tingling. No change in memory Hematologic/Lymphatic: No abnormal bruising or bleeding OBJECTIVE CBC: Results from last 7 days Lab Units 09/18/2445009/17/2443209/16/24 0426 WBC x10E9/L 7.7 10.5 13.8* HEMOGLOBIN g/dL 9.6* 9.5* 9.3* HEMATOCRIT % 28.2* 27.4* 27.4* MCV fL 91 92 91 PLATELETS X10E9/L 300 310 328 BMP: Results from last 7 days Lab Units 09/18/2445009/17/24 16209/17/2443209/16/24 0426 SODIUM mmol/L 137 -- 137 138 POTASSIUM mmol/L 3.8 -- 3.6 4.2 CHLORIDE mmol/L 107 -- 106 107 CO2 mmol/L 24 -- 28 BUN mg/dL 11 -- 5 9 CREATININE mg/dL 0.44 -- 0.47 0.48 CALCIUM mg/dL 8.1* -- 7.9* 7.9* PHOSPHORUS mg/dL 3.5 -- 2.4 1.5* MAGNESIUM mg/dL 1.6* 2.3 1.6* 1.9 MAG: Results from last 7 days Lab Units 09/18/2445009/17/24162209/17/24432 MAGNESIUM mg/dL 1.6* 2.3 1.6* Lipid Panel: Lab Results Component Value Date CHOL 197 05/08/2024 TRIG 145 05/08/2024 HDL 45 05/08/2024 HDL 55 09/12/2014 CHOLHDLR 09/12/2014 RISK FEMALE RATIO MALE RATIO 1/2 AVERAGE 3.27 3.43 AVERAGE 4.44 4.97 2X 7.05 9.55 3X 11.04 23.39 HgA1C: Lab Results Component Value Date HGBA1C 5.8 (H) 05/08/2024 CV TESTING HISTORY: ECHO: Echo limited W/O contrast Result Date: 05/10/2024 Left Ventricle: Left ventricle appears normal in size. Systolic function is severely decreased withan ejection fraction of 20-25%. Right Ventricle: Right ventricular size appears normal. Systolic function is normal. Echo limited W/O contrast Result Date: 05/08/2024 Left Ventricle: Left ventricle appears normal in size. Systolic function is moderately to severely decreased with an ejection fraction of 30-35%. Aortic Valve: There is no regurgitation or stenosis. Mitral Valve: There is [id number]-jc-smwn regurgitation. There is no evidence of mitral valve stenosis. Tr icuspid Valve: There is trace regurgitation. There is no evidence of tricuspid valve stenosis. TELEMETRY: PHYSICAL EXAM Admission Weight: Weight: 49.6 kg (109 lb 5.6 oz) I/O last 3 completed shifts: In: 500 [P.O.:500] Out: 2800 [Urine:2800] Weight change: Wt Readings from Last 3 Encounters: 09/17/24 51.5 kg (113 lb 8.6 oz) 09/12/24 45.8 kg (101 lb) 06/17/24 46.7 kg (103 lb) Vitals: Vitals: 09/17/24 2021 09/17/24 2344 09/18/24 0418 09/18/24 0700 BP: 139/66 127/56 138/50 142/70 Pulse: 80 88 83 96 Resp: 17 16 14 17 Temp: 37.1 ??C (98.7 ??F) 36.9 ??C (98.5 ??F) 36.8 ??C (98.2 ??F) 37 ??C (98.6 ??F) TempSrc: Oral Oral Oral Oral SpO2: 98% 98% 97% Weight: Height: Admit Weight Weight: 49.6 kg (109 lb 5.6 oz) Last 3 Weights Last 3 Weight Readings 09/14/24 1910 09/16/24 0115 09/17/24 0500 Weight: 48.7 kg (107 lb 5.8 oz) 50.8 kg (112 lb) 51.5 kg (113 lb 8.6 oz) Body mass index is 21.45 kg/m??. INTAKE/OUTPUT I/O last 3 completed shifts: In: 500 [P.O.:500] Out: 2800 [Urine:2800] Intake/Output Summary (Last 24 hours) at 09/18/2024 1033 Last data filed at 09/18/2024 0500 Gross per 24 hour Intake 500 ml Output 1850 ml Net -1350 ml General appearance: Alert oriented and cooperative, In no acute distress Eyes: Conjunctivae unremarkable, sclera non icteric Neck: No JVD, trachea midline Lungs: Clear to ausculation bilaterally, no use of accessory muscles Heart:: RRR with normal S1 and S2, no murmurs and no gallops. Extremities: No edema Neurologic: Oriented to time, person and place, affect appropriate, no focal/major motor or sensorydefects noted ASSESSMENT Anterior STEMI/CHB 04/2024 - s/p PCI GARETT pLAD 05/07/24, staged PCI GARETT OM2 05/09/24 - on DAPT with effient + ASA Ischemic cardiomyopathy - EF 20-25% TTE 05/10/24 - has lifevest Chronic HFrEF - appears euvolemic Sepsis/diverticulitis with abscess - no surgical intervention at this time PAD with moderate stenosis R popiteal and L tib arteries HTN, controlled HLD ETOH/polystubstance abuse PLAN Surgery has signed off. Likely transition from cangrelor to plavix PO in near future when ok with primary team. BP is elevated, restart GDMT with Carvedilol, spironolactone, Farxiga, metoprolol. Recommend outpatient visit in office in 2 weeks. No further recommendations from a cardiac standpoint, will sign off at this time. Please reach out with further questions or concerns [phone]. MARCIAL Longo This note was completed using a voice pulverizing and sifting operator system. Every effort was made to ensure accuracy. However, inadvertent computerized pulverizing and sifting operator errors may be present. MARCIAL Longo 09/18/24 1037 IMAYA MD, personally performed the face to face diagnostic evaluation on this patient. My findings are as follows: Switch the Plavix today if okay with surgery Resume goal-directed medical therapy Will sign off, please call with any further questions * Felicia Pickens MD - 09/18/2024 6:25 AM EDT [facility] General Surgery Daily Progress Note IP Day: 6 Subjective: NAEO. Reports no abdominal tenderness. No reports of nausea/vomiting. Had multiple bowel movements yesterday. Tolerated soft. Passing gas. C diff negative. Objective: Vitals: 09/18/24 0418 BP: 138/50 Pulse: 83 Resp: 14 Temp: 36.8 ??C (98.2 ??F) SpO2: 97% Temp: [36.3 ??C (97.4 ??F)-37.1 ??C (98.7 ??F)] 36.8 ??C (98.2 ??F) Pulse: [80-89] 83 Resp: [14-18] 14 BP: (124-139)/(50-66) 138/50 SpO2: [97 %-98 %] 97 % O2 Device: None (Room air) Allergies Allergen Reactions Sulfa (Sulfonamide Antibiotics) Itching and Rash Intake/Output last 3 shifts: I/O last 3 completed shifts: In: 2100 [P.O.:2100] Out: 1850 [Urine:1850] Intake/Output this shift: I/O this shift: In: - Out: 1850 [Urine:1850] Dietary Orders (From admission, onward) Start Ordered 09/17/24 1501 Adult nutrition supplements Continuous Question Answer Comment Diet Type or Consistency: Level 6 Soft and Bite Sized diet Select Supplement: Standard House Supplement 8 oz Supplement Frequency: Daily 09/17/24 1500 09/17/24 1419 Adult diet Level 6 Soft and Bite Sized diet; 2000 mg Sodium; Low Fiber (gastric soft)Diet effective now Comments: Level 6 diet per pt request Question Answer Comment Diet Type: Level 6 Soft and Bite Sized diet Sodium Modifiers: 2000 mg Sodium Other Modifiers: Low Fiber (gastric soft) 09/17/24 1418 Physical Exam General Appearance: Awake alert and oriented, in no acute distress Neck: Trachea Midline Pulmonary: Respirations are nonlabored, chest rise equal, no use of accessory muscles Cardiac: Regular rate and rhythm Abdomen: Soft, non-tender, non-distended and no peritonitis Extremity: No edema Bilateral Upper and lower extremities Skin: Dry. Non-icteric. No Rash. Eyes: Pupils Equal and Round and reactive, sclerae are without icterus Laboratory Data: Lab Results Component Value Date WBC 7.7 09/18/2024 HGB 9.6 (L) 09/18/2024 HCT 28.2 (L) 09/18/2024 MCV 91 09/18/2024 PLT 300 09/18/2024 Lab Results Component Value Date GLU 93 09/18/2024 CALCIUM 8.1 (L) 09/18/2024 K 3.8 09/18/2024 CO2 24 09/18/2024 CL 107 09/18/2024 BUN 11 09/18/2024 CREATININE 0.44 09/18/2024 No results found for: AMYLASE Lab Results Component Value Date LIPASE 26 02/28/2022 Lab Results Component Value Date ALT 33 (H) 09/18/2024 AST 38 09/18/2024 ALKPHOS 80 09/18/2024 Lab Results Component Value Date INR 1.2 05/07/2024 INR 0.9 06/30/2022 PROTIME 13.4 (H) 05/07/2024 PROTIME 9.9 06/30/2022 atorvastatin, 80 mg, oral, Nightly busPIRone, 10 mg, oral, BID gabapentin, 300 mg, oral, TID heparin (porcine), 5,000 Units, subcutaneous, Q12H KAMILAH nicotine, 1 patch, transdermal, Daily piperacillin-tazobactam (ZOSYN) IV, 3.375 g, intravenous, Q8H acetaminophen calcium gluconate OR calcium gluconate OR calcium gluconate dextrose dextrose 5 % in water dextrose 50 % in water (D50W) glucagon (human recombinant) HYDROmorphone magnesium sulfate OR magnesium sulfate ondansetron oxyCODONE potassium chloride OR potassium chloride potassium chloride in water OR potassium chloride in water sennosides-docusate sodium sodium chloride Imaging: CT abdomen and pelvis with contrast EXAM: ABDOMEN AND PELVIS CT WITH CONTRAST CLINICAL INFORMATION: assess diverticulitis. TECHNIQUE: CT abdomen and pelvis was performed utilizing 5 mm axial reconstructions following the uneventful administration of nonionic intravenous contrast. Coronal and sagittal reformatted images as well as delayed excretory phase images were obtained and reviewed. Automated exposure control was utilized. COMPARISON: 09/12/2024 FINDINGS: The limited visualized lung bases demonstrate trace amounts of pleural fluid with minimal bibasilaratelectasis. The liver is unremarkable. The gallbladder is present. The spleen is normal. The pancreas is unremarkable. The right kidney is normal. The left kidney is normal. The adrenals are unremarkable. There is contrast within the nondilated colon from recent modified barium swallow examination. There is no evidence of bowel obstruction. There are no dilated loops of bowel or evidence for pneumatosis or free air. There is slight wall thickening involving the cecum and ascending colon, suspected to represent a mild infectious and/or inflammatory colitis. There is a trace amount of perihepatic free fluid. There is no evidence for a discrete abscess. There are calcifications throughout a normal diameter abdominal aorta and iliac arteries. A urinary catheter is present. IMPRESSION: 1. Slight wall thickening involving the cecum and ascending colon, suspected mild nonspecific infectious and/or inflammatory colitis. Ischemia is within the differential consideration though suspected lysed likely. There is a trace amount of adjacent perihepatic free fluid. There is no evidence of bowel obstruction, pneumatosis, free air, or abscess. 2. Trace amount of pleural fluid with minimal bibasilar atelectasis. All CT scans at this facility use dose modulation, iterative reconstruction, and/or weight based dosing when appropriate to reduce radiation dose to as low as reasonably achievable. Finalized by Paras Nixon MD on 09/16/2024 2:53 PM Assessment: Alie Lowe is a 63 y.o. female who presented with altered mental status and lower abdominal pain. CTAP on 09/16 demonstrating colitis. Plan: GI soft Continue broad spectrum IV abx IVF Incentive spirometry, ambulation, out of bed to chair DVT ppx: hep5k Patient okay for discharge from a surgery standpoint. Will need follow up in [address] Brower outpatient Felicia Pickens MD General Surgery Resident, PGY-1 Cosigned by Leobardo Brower MD at 09/18/2024 8:54 PM EDT Associated attestation - Leobardo Brower MD - 09/18/2024 8:54 PM EDT Attending Attestation: I saw the patient. I participated and was physically present during the critical/carrington portions of the service. I was directly involved in the management and treatment plan of the patient. I reviewed the resident's note. Additional Notes/Findings: * Reyes Jones MD - 09/17/2024 3:14 PM EDT Images from the original note were not included. [facility] [place] [id number] MED-SURG/ORTHO [address] [place] [id number] Hospital Medicine Progress Note Patient: Alie Lowe Date of : 1960 Room: 2/ PCP: ROSITA Lance Admission date: 09/12/2024 9:16 PM Encounter date: 09/17/24 Hospital Day: 6 SUBJECTIVE Chief complaints: No chief complaint on file. Interval History: Status: Improved. Ms. Lowe reports improvement of her diarrhea and resolution of her nausea. C. Diff testing was negative, thankfully. CT of the abdomen and pelvis demonstrated resolution of the stomach distentionand resultant external compression of the spleen, with evidence of nonspecific colitis affecting the cecum and ascending colon. Her leukocytosis has finally resolved, measuring 10.5 today. Hemoglobinis stable is 9.5. Review of Systems Constitutional: Negative for activity change, chills and fever. HENT: Negative for trouble swallowing. Eyes: Negative for visual disturbance. Respiratory: Negative for cough, chest tightness and shortness of breath. Cardiovascular: Negative for chest pain and leg swelling. Gastrointestinal: Positive for diarrhea (Improved). Negative for abdominal pain, blood in stool, nausea and vomiting. Musculoskeletal: Negative for arthralgias and myalgias. Skin: Negative for color change, pallor, rash and wound. Neurological: Negative for facial asymmetry, weakness, light-headedness and numbness. Hematological: Does not bruise/bleed easily. OBJECTIVE BP 124/63 Pulse 89 Temp 36.3 ??C (97.4 ??F) (Oral) Resp 18 Ht 154.9 cm (5' 1 ) Wt 51.5 kg(113 lb 8.6 oz) SpO2 98% BMI 21.45 kg/m?? Temp: [36.3 ??C (97.4 ??F)-36.9 ??C (98.5 ??F)] 36.3 ??C (97.4 ??F) Pulse: [81-89] 89 Resp: [14-18] 18 BP: (119-134)/(59-84) 124/63 SpO2: [97 %-100 %] 98 % O2 Device: None (Room air) O2 Flow Rate (L/min): [0 L/min] 0 L/min Intake/Output Summary (Last 24 hours) at 09/17/2024 1514 Last data filed at 09/17/2024 0143 Gross per 24 hour Intake 400 ml Output 1500 ml Net -1100 ml Physical Exam Vitals reviewed. Constitutional: General: She is not in acute distress. Appearance: She is well-developed. She is not ill-appearing, toxic-appearing or diaphoretic. Comments: Ms. Lowe appears much more comfortable today, and is in no acute pain or respiratory distress. HENT: Head: Normocephalic and atraumatic. Comments: Symmetric facies. Right Ear: External ear normal. Left Ear: External ear normal. Nose: Nose normal. Eyes: General: No scleral icterus. Right eye: No discharge. Left eye: No discharge. Extraocular Movements: Extraocular movements intact. Conjunctiva/sclera: Conjunctivae normal. Neck: Thyroid: No thyromegaly. Comments: No stridor or tracheal deviation noted. Cardiovascular: Rate and Rhythm: Normal rate and regular rhythm. Heart sounds: Normal heart sounds. No murmur heard. No friction rub. No gallop. Pulmonary: Effort: Pulmonary effort is normal. No respiratory distress. Breath sounds: Normal breath sounds. No stridor. No wheezing. Abdominal: General: Bowel sounds are normal. There is no distension. Palpations: Abdomen is soft. Tenderness: There is no abdominal tenderness. There is no guarding or rebound. Comments: No abdominal bruit noted. Musculoskeletal: General: No tenderness. Normal range of motion. Cervical back: Normal range of motion and neck supple. Right lower leg: No edema. Left lower leg: No edema. Skin: General: Skin is warm and dry. Neurological: General: No focal deficit present. Mental Status: She is alert and oriented to person, place, and time. Mental status is at baseline. Sensory: No sensory deficit. Psychiatric: Mood and Affect: Mood normal. Behavior: Behavior normal. Thought Content: Thought content normal. Judgment: Judgment normal. Comments: Ms. Lowe is alert, pleasant and appropriate in conversation. Conversational content does not suggest aberrant mentation. Medications Scheduled: atorvastatin, 80 mg, oral, Nightly busPIRone, 10 mg, oral, BID gabapentin, 300 mg, oral, TID heparin (porcine), 5,000 Units, subcutaneous, Q12H KAMILAH nicotine, 1 patch, transdermal, Daily piperacillin-tazobactam (ZOSYN) IV, 3.375 g, intravenous, Q8H Infusions: cangrelor (KENGREAL) 50 mg in sodium chloride 0.9 % 250 mL (0.2 mg/mL) infusion, 0.75 mcg/kg/min, Last Rate: 0.75 mcg/kg/min (09/16/242046) dextrose 5 % in water, 100 mL/hr As Needed: acetaminophen calcium gluconate OR calcium gluconate OR calcium gluconate dextrose dextrose 5 % in water dextrose 50 % in water (D50W) glucagon (human recombinant) HYDROmorphone magnesium sulfate OR magnesium sulfate ondansetron oxyCODONE potassium chloride OR potassium chloride potassium chloride in water OR potassium chloride in water sennosides-docusate sodium sodium chloride Allergies: Sulfa (sulfonamide antibiotics) Code Status: Full Code Labs Recent Results (from the past 24 hours) C difficile by PCR Collection Time: 09/16/24 4:04 PM Result Value Ref Range TOXIGENIC C DIFF Negative Negative 027 NAP1 Presumptive Negative Presumptive Negative Comprehensive metabolic panel Collection Time: 09/17/24 4:33 AM Result Value Ref Range SODIUM 137 134 - 146 mmol/L POTASSIUM 3.6 3.5 - 5.0 mmol/L CHLORIDE 106 98 - 109 mmol/L CARBON DIOXIDE 26 22 - 32 mmol/L ANION GAP 5 5 - 15 mmol/L BLOOD UREA NITROGEN 5 5 - 27 mg/dL CREATININE 0.47 0.40 - 1.00 mg/dL GLUCOSE 89 65 - 99 mg/dL CALCIUM 7.9 (L) 8.5 - 10.5 mg/dL TOTAL PROTEIN 5.1 (L) 6.0 - 8.0 g/dL ALBUMIN 2.7 (L) 3.2 - 5.3 g/dL ALKALINE PHOSPHATASE 74 39 - 130 U/L AST 22 <=41 U/L ALT 14 <=31 U/L BILIRUBIN,TOTAL 0.6 0.3 - 1.2 mg/dL EGFR Non-Race Dependent >90 >=60 ml/min/1.73sq.m Magnesium Collection Time: 09/17/24 4:33 AM Result Value Ref Range MAGNESIUM 1.6 (L) 1.8 - 2.6 mg/dL CBC auto differential Collection Time: 09/17/24 4:33 AM Result Value Ref Range WBC 10.5 4 - 11 x10E9/L RBC Count 2.99 (L) 3.8 - 5.2 X10E12/L Hemoglobin 9.5 (L) 11.7 - 15.5 g/dL Hematocrit 27.4 (L) 35 - 47 % MCV 92 80 - 100 fL MCH 31.8 27 - 34 pg MCHC 34.6 32 - 36 g/dL RDW 14.4 11.5 - 15 % Platelet Count 310 150 - 450 X10E9/L MPV 8.5 7 - 12 fL Neutrophils % 69.0 % Lymphocytes % 13.5 % Monocytes % 8.6 % Eosinophils % 8.1 % Basophils % 0.8 % Neutrophils Absolute (A) 7.3 (H) 1.5 - 6.6 10*3/uL Lymphocytes Absolute 1.4 1.0 - 3.5 10*3/uL Monocytes Absolute 0.9 0.0 - 0.9 10*3/uL Eosinophils Absolute 0.9 (H) 0.0 - 0.4 10*3/uL Basophils Absolute 0.1 0.0 - 0.2 10*3/uL Differential Type AUTOMATED DIFFERENTIAL Phosphorus Collection Time: 09/17/24 4:33 AM Result Value Ref Range PHOSPHORUS 2.4 2.4 - 4.9 mg/dL Radiology No results found. HOSPITAL PROBLEM LIST Principal Problem: Sepsis ([facility]) ASSESSMENT & PLAN Concern for diverticulitis with abscess CT abdomen and pelvis with PO contrast demonstrated findings consistent with colitis associated with the cecum and ascending colon, and resolution of the dilatation of the stomach with coincident external compression of the spleen noted in the images associated with the previous CTA. Mesenteric ischemia seems less likely based on the lack of postprandial discomfort and patency of the superior mesenteric artery Maintaining treatment with Zosyn Diarrhea Resolved C. Diff negative Likely secondary to colitis ASCVD with recent STEMI Revascularization and stenting of the left anterior descending with temporary pacemaker placement on 05/07/24, revascularization and stenting of the left circumflex 05/09. Maintaining antiplatelet therapy with cangrelor, and will plan to transition back to oral therapy I spoke with Dr. Luciano and Nishi Graham of the cardiology service, and appreciate their recommendations. The plan will be to transition to plavix with a 600mg initial loading dose before returning to maintenance dosing at 75mg daily Heart failure with reduced ejection fraction Holding antihypertensives due to hypotension Appears euvolemic at this time DC planning: Maintaining IV antimicrobial therapy and monitoring for persistent dietary tolerance given advancement today. Brandt Grissom PA-C 09/17/2024 3:14 PM [facility] Internal Medicine 7AM-7PM & 7PM-7AM: EpicChat or page through On-Call F[employer]. DIEGO Castaneda 09/17/24 0312 Attending Addendum: I Dr Reyes Jones, personally performed a face to face diagnostic evaluation on this patient. I have reviewed the note authored by the advance practice provider including history, review of systems, physical examination, medical decision making and agree with the assessment and plan as written. I have seen and evaluated the patient,I have repeated the carrington portions of the physical exam and concur with the LOBITO findings.I have reviewed all laboratory findings and imaging reprts/films.I agree with the plan as noted. * WILMER Grayson - 09/17/2024 2:06 PM EDT NUTRITION ADULT INITIAL EVALUATION NUTRITION ASSESSMENT: Reason to be seen: RD ID for multiple diet restrictions Patient History: Admit Diagnosis: Patient Active Problem List Diagnosis Cervical spondylosis without myelopathy Osteoarthritis of cervical spine HTN (hypertension) CHB (complete heart block) ([facility] ST elevation myocardial infarction (STEMI) ([facility]) Coronary artery disease involving saxman coronary artery of saxman heart Mixed hyperlipidemia Chronic systolic heart failure ([facility]) Sepsis [place] Past Medical History: Past Medical History: Diagnosis Date Asthma Asthma Back pain Cervical disc disorder CHB (complete heart block) ([facility]) 05/07/2024 HTN (hypertension) Hx of scabies Low back pain Lumbosacral disc disease Neck pain Osteoarthritis TMJ (temporomandibular joint syndrome) Past Surgical History: Past Surgical History: Procedure Laterality Date Cardiac Invasive N/A 05/09/2024 Performed by Gilberto Zepeda MD at [facility] Cardiac Invasive-cors N/A 05/07/2024 Performed by Gilberto Zepeda MD at [facility] SECTION SECTION 1980,,, INJECTION MEDIAL BRANCH NERVE BLOCK: left C34 45 56 Left 03/16/2018 Performed by Manav Rosario MD at [facility] INJECTION MEDIAL BRANCH NERVE BLOCK: left c34 45 56 Left 02/12/2018 Performed by Manav Rosario MD at [facility] INJECTION MEDIAL BRANCH NERVE BLOCK: right C34 45 56 Right 09/14/2018 Performed by Manav Rosario MD at [facility] INJECTION MEDIAL BRANCH NERVE BLOCK: right C34 45 56mbb Right 07/23/2018 Performed by Manav Rosario MD at [facility] Insert/replace temporary single lead pacemaker N/A 05/07/2024 Performed by Gilberto Zepeda MD at [facility] Intravascular ultrasound initial vessel N/A 05/07/2024 Performed by Gilberto Zepeda MD at [facility] ORTHOPEDIC SURGERY Percutaneous coronary intervention N/A 05/07/2024 Performed by Gilberto Zepeda MD at [facility] Percutaneous coronary intervention of OM N/A 05/09/2024 Performed by Gilberto Zepeda MD at [facility] RADIO FREQUENCY ABLATION Right C 3/4, 4/5, 5/6 Right 11/15/2019 Performed by Manav Rosario MD at [facility] RADIO FREQUENCY ABLATION: left C34 45 56rfa Left 04/30/2018 Performed by Manav Rosario MD at [facility] RADIOFREQUENCY ABLATION SPINAL: Right C 4/5 5/6 Left 07/08/2022 Performed by Manav Rosario MD at [facility] RADIOFREQUENCY ABLATION SPINAL: right C 4/5 5/6 Right 07/29/2022 Performed by Manav Rosario MD at [facility] Revascularization/drug eluting stent/ left anterior descending N/A 05/07/2024 Performed by Gilberto Zepeda MD at [facility] ROTATOR CUFF REPAIR Left Stent drug-eluting/ left circumflex N/A 05/09/2024 Performed by Gilberto Zepeda MD at [facility] TONSILLECTOMY 1970 Social/ Cognitive/ Economic: Prior to admission patient was living alone and partial assistance, independent with ADLs. Brief Clinical Summary: Alie Lowe is a 63 y.o. female who presents with altered mental status. Patient was found by family members to be confused and lethargic. Cold and mottled from waist down. Patient with a past medical history that includes hypertension, chronic systolic heart failure, complete heart block, coronary artery disease, STEMI, ultrasound of abdomen showed distended gallbladder with small amount of sludge. CT imaging and clinical presentation consistent with diverticulitis with abscess. Biochemical Data, Medical Tests, and Procedures 09/13 VFSS - No aspiration or penetration visualized across all tested consistencies. Labs: Results from last 3 days Lab Units 09/17/24 0433 09/16/24 0426 09/15/24 1734 09/15/24 1028 09/15/24 0516 SODIUM mmol/L 137 138 -- -- 141 POTASSIUM mmol/L 3.6 4.2 3.8 < > 3.6 CHLORIDE mmol/L 106 107 -- -- 104 CO2 mmol/L 26 28 -- -- 34* BUN mg/dL 5 9 -- -- 26 CREATININE mg/dL 0.47 0.48 -- -- 0.63 CALCIUM mg/dL 7.9* 7.9* -- -- 7.9* ALBUMIN g/dL 2.7* 2.8* -- -- 3.1* ALK PHOS U/L 74 72 -- -- 76 ALT U/L 14 7 -- -- 8 AST U/L 22 15 -- -- 12 < > = values in this interval not displayed. Results from last 7 days Lab Units 09/17/24 0433 09/16/24 0426 09/15/24 0516 09/14/24 0415 09/13/24 04109/12/24 2230 09/12/24 1554 GLUCOSE mg/dL 89 96 116* 161* 188* 127* 185* Results from last 3 days Lab Units 09/17/24 0433 09/16/24 0426 09/15/24 0516 WBC x10E9/L 10.5 13.8* 20.3* HEMOGLOBIN g/dL 9.5* 9.3* 9.8* HEMATOCRIT % 27.4* 27.4* 28.6* PLATELETS X10E9/L 310 328 329 MCV fL 92 91 91 Results from last 3 days Lab Units 09/17/24 0433 09/16/24 0426 09/15/24 0516 MAGNESIUM mg/dL 1.6* 1.9 2.8* Results from last 3 days Lab Units 09/17/24 0433 09/16/24 0426 09/15/24 1414 09/15/24 0516 PHOSPHORUS mg/dL 2.4 1.5* -- 1.4* CALCIUM, IONIZED mg/dL -- 4.5 4.6 4.4* Results from last 3 days Lab Units 09/17/24 0433 09/16/24 0426 09/15/24 0516 BILIRUBIN, TOTAL mg/dL 0.6 0.7 0.7 Lab Results Component Value Date HGBA1C 5.8 (H) 05/08/2024 Lab Results Component Value Date IRON 30 (L) 04/06/2024 TIBC 358 04/06/2024 FERRITIN 17 04/06/2024 Lab Results Component Value Date IRONSAT 8 (L) 04/06/2024 Lab Results Component Value Date CHOL 197 05/08/2024 Lab Results Component Value Date CHDL 4.4 05/08/2024 Lab Results Component Value Date HDL 45 05/08/2024 Lab Results Component Value Date LDLCALC 123 05/08/2024 Lab Results Component Value Date TRIG 145 05/08/2024 Lab Results Component Value Date VERYLOWLIP 29 05/08/2024 Lab Results Component Value Date RUENUGJM52 295 05/10/2024 Lab Results Component Value Date FOLATE 4.2 (L) 05/10/2024 Lab Results Component Value Date VITD25 7.6 (L) 05/08/2024 Comments (labs): Ca=7.9 L, Mg=1.6 L Medications/ Parenteral: MgSO4, Abt Medications Prior to Admission Medication Sig Dispense Refill Last Dose/Taking aspirin 81 mg chewable tablet Chew 1 tablet (81 mg total) and swallow in the morning for 360 days. 90 tablet 3 Past Week atorvastatin (LIPITOR) 80 mg tablet Take 1 tablet (80 mg total) by mouth nightly. 90 tablet 3 Past Week busPIRone (BUSPAR) 10 mg tablet Take 1 tablet (10 mg total) by mouth in the morning and 1 tablet (10 mg total) before bedtime. Past Week dapagliflozin propanediol (FARXIGA) 10 mg tablet Take 1 tablet (10 mg total) by mouth in the morning for 360 days. 90 tablet 3 Past Week gabapentin (NEURONTIN) 300 mg capsule Take 1 capsule (300 mg total) by mouth in the morning and 1 capsule (300 mg total) at noon and 1 capsule (300 mg total) in the evening and 1 capsule (300 mg total) before bedtime. (Patient taking differently: Take 400 mg by mouth in the morning and 400 mg at noon and 400 mg in the evening and 400 mg before bedtime.) Taking Differently metoprolol succinate XL (TOPROL XL) 25 mg 24 hr tablet Take 0.5 tablets (12.5 mg total) by mouth inthe morning. 45 tablet 3 Past Week prasugreL HCl (EFFIENT) 10 mg tablet Take 1 tablet (10 mg total) by mouth in the morning. 90 tablet3 Past Week spironolactone (ALDACTONE) 25 mg tablet Take 1 tablet (25 mg total) by mouth in the morning. 90 tablet 3 Past Week valsartan (DIOVAN) 40 mg tablet Take 1 tablet (40 mg total) by mouth in the morning and 1 tablet (40 mg total) before bedtime. 90 tablet 3 Past Week DULoxetine (CYMBALTA) 60 mg capsule Take 1 capsule (60 mg total) by mouth in the morning. (Patient not taking: Reported on 09/14/2024) More than a month folic acid (FOLVITE) 1 mg tablet Take 1 tablet (1 mg total) by mouth in the morning. nicotine polacrilex (NICORETTE) 4 MG gum Chew 1 each (4 mg total) as directed as needed for smokingcessation. As recommended on Nicorette gum label, weeks 1-6 1 piece every 1-2 hours, week 7-9 1 piece every 2-4 hours, weeks 10-12 1 piece every 4-8 hours. Do not use nicotine gum simultaneously withother tobacco product 100 each 3 sennosides-docusate sodium (SENOKOT-S) 8.6-50 mg Take 2 tablets by mouth 2 (two) times a day as needed for constipation. thiamine HCl (VITAMIN B-1) 100 mg tablet Take 1 tablet (100 mg total) by mouth in the morning. Current Facility-Administered Medications Medication Dose Route Frequency Provider Last Rate Last Admin acetaminophen (TYLENOL EXTRA STRENGTH) tablet 500 mg 500 mg oral Q6H PRN Abed Rambonnien, LABOR ECONOMICS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 500mg at 09/14/24 0243 atorvastatin (LIPITOR) tablet 80 mg 80 mg oral Nightly Kylie Link MD 80 mg at 09/16/24 2119 busPIRone (BUSPAR) tablet 10 mg 10 mg oral BID Kylie Link MD 10 mg at 09/17/24 1045 calcium gluconate IVPB 1000 mg/50 mL (20 mg/mL premix) 1,000 mg intravenous PRN Lito Pillai PA-C Stopped at 09/15/24 0728 Or calcium gluconate IVPB 2000 mg/100 mL (20 mg/mL premix) 2,000 mg intravenous PRN Lito Pillai PA-C Or calcium gluconate 3,000 mg in sodium chloride 0.9 % 100 mL IVPB 3,000 mg intravenous PRN Lito Pillai PA-C cangrelor (KENGREAL) 50 mg in sodium chloride 0.9 % 250 mL (0.2 mg/mL) infusion 0.75 mcg/kg/min intravenous Continuous Kylie Link MD 10.9 mL/hr at 09/16/242046 0.75 mcg/kg/min at 09/16/242046 dextrose (GLUTOSE) 40 % gel 15 g 15 g oral PRN Abed Ramadan, LABOR ECONOMICS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 dextrose 5 % (D5W) infusion 100 mL/hr intravenous Continuous PRN Abed Ramadan, LABOR ECONOMICS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 dextrose 50 % in water (D50W) 50% solution 25 mL 25 mL intravenous PRN Abed Ramadan, LABOR ECONOMICS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 gabapentin (NEURONTIN) capsule 300 mg 300 mg oral TID Kylie Link MD 300 mg at 09/17/24 0539 glucagon HCL injection 1 mg 1 mg intramuscular PRN 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, LAB[employer] E[employer]OM[employer]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 heparin (porcine) injection 5,000 Units 5,000 Units subcutaneous Q12H KAMILAH Lito Pillai PA-C 5,000 Units at 09/17/24 1046 HYDROmorphone (DILAUDID) injection 0.5 mg 0.5 mg intravenous Q3H PRN Kylie Link MD 0.5 mg at 704 magnesium sulfate IVPB 2000 mg/50 mL in iso-osmotic water (40 mg/mL premix) 2,000 mg intravenous PRN Lito Pillai PA-C Or magnesium sulfate IVPB 4000 mg/100 mL in iso-osmotic water (40 mg/mL premix) 4,000 mg intravenous PRN Lito Pillai PA-C 25 mL/hr at 09/17/24 0830 4,000 mg at 09/17/24 0830 nicotine (NICODERM CQ) 21 mg/24 hr 1 patch 1 patch transdermal Daily Kylie Link MD 1 patch at 09/17/24 1046 ondansetron (PF) (ZOFRAN) injection 4 mg 4 mg intravenous Q4H PRN 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 LABOR ECONOMICS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 4 mg at 09/14/24 1704 oxyCODONE (ROXICODONE) immediate release tablet 5 mg 5 mg oral Q4H PRN Kylie Link MD 5 mg at 243 piperacillin-tazobactam (ZOSYN) 3.375 g in sodium chloride 0.9 % 50 mL IVPB W/ADAPTER 3.375 g intravenous Q8H Lele Aguila MD 12.5 mL/hr at 09/17/24 1244 3.375 g at 09/17/24 1244 potassium chloride (KLOR-CON M 20) CR tablet 20-50 mEq 20-50 mEq oral PRN Lito Pillai PA-C 30 mEq at 09/15/242104 Or potassium chloride (KAYCIEL) 20 mEq/15 mL solution 20-50 mEq 20-50 mEq oral PRN Lito Pillai PA-C potassium chloride IVPB 10 mEq/50 mL in water (0.2 mEq/mL premix) 10 mEq intravenous PRN Lito Pillai PA-C Or potassium chloride IVPB 10 mEq/100 mL in water (0.1 mEq/mL premix) 10 mEq intravenous PRN Lito Pillai PA-C Stopped at 09/15/24 0353 sennosides-docusate sodium (SENOKOT-S) 8.6-50 mg 1 tablet 1 tablet oral Q12H PRN Torito Zuniga APRN-[employer] REP 1 tablet at 09/14/24 1021 sodium chloride 0.9 % flush 10 mL 10 mL intravenous PRN Reyes Jones MD 10 mL at 09/16/24 1422 Nutrition Focused Physical Findings BM 09/17 Small/Loose/Watery Extremities, Muscles, and Bones wnl Skin (per nursing flow sheets): Skin Color: [place]; Pale; Blanchable (buttocks) (09/17/24 1100) Skin Temp: Warm; Dry (09/17/24 1100) Wound (per nursing flow sheets): Gastrointestinal (per nursing flow sheets): Abdomen Assessment: Soft; Nondistended (09/16/24 194) Last BM Date: 09/17/24 (09/17/24 1300) Passing Flatus: Yes (09/16/241942) RUQ Bowel Sounds: Active (09/16/241942) LUQ Bowel Sounds: Active (09/16/241942) RLQ Bowel Sounds: Active (09/16/241942) LLQ Bowel Sounds: Active (09/16/241942) GI Symptoms: Diarrhea (09/16/241942) Edema (per nursing flow sheets): Overall Appearance: well-developed, alert, pleasant and appropriate in conversation Intake/ Output Last 24 hrs: Intake/Output Summary (Last 24 hours) at 09/17/2024 1406 Last data filed at 09/17/2024 0143 Gross per 24 hour Intake 400 ml Output 1500 ml Net -1100 ml Food/Nutrition Related History: Diet History: Met with pt who report feeling better and eating well today. Spoke with attending andrequested diet liberalization as EMILY is resolved and Potassium and Phosphorus have been low/borderline low. was in agreement. PUBLIC HEALTH ENGINEER notes reviewed 09/13 and pt was requesting a soft diet. Pt reports she would like to continue this. Diet order updated. Pt reports consuming Boost daily at home. Will order ONS. Nutrition Knowledge/Beliefs/Attitudes: Diet education on low fiber diet with handouts provided. Pt verbalized understanding. Allergies: Allergies Allergen Reactions Sulfa (Sulfonamide Antibiotics) Itching and Rash Diet/ Nutrition Order Review: Dietary Orders (From admission, onward) Start Ordered 09/17/24 0652 Adult diet Regular Texture; 2000 mg Sodium; Low Phosphorus (800- 1000 mg), Low Potassium (50-70 mEq); Cardiac, Low Fiber (gastric soft) Diet effective now Question Answer Comment Diet Type: Regular Texture Sodium Modifiers: 2000 mg Sodium Renal Modifiers: Low Phosphorus (800-1000 mg) Renal Modifiers: Low Potassium (50-70 mEq) Other Modifiers: Cardiac Other Modifiers: Low Fiber (gastric soft) 09/17/24 0652 Diet Intakes: Percent Meals Eaten (%): 100 (09/16/24 1800) Fair to Good PO Oral Supplemental Intake/ Acceptance: will order Anthropometrics: Ht Readings from Last 1 Encounters: 09/13/24 154.9 cm (5' 1 ) Wt Readings from Last 20 Encounters: 09/17/24 51.5 kg (113 lb 8.6 oz) 09/12/24 45.8 kg (101 lb) 06/17/24 46.7 kg (103 lb) 05/18/24 41 kg (90 lb 6.2 oz) 06/30/22 55.7 kg (122 lb 14.4 oz) 06/09/22 54.4 kg (120 lb) 02/28/22 52.6 kg (116 lb) 11/11/21 52.9 kg (116 lb 9.6 oz) 11/11/21 53.1 kg (117 lb) 07/05/21 54.4 kg (120 lb) 02/23/21 54.7 kg (120 lb 9.6 oz) 11/03/20 57.1 kg (125 lb 12.8 oz) 07/29/20 60.5 kg (133 lb 6.4 oz) 07/20/20 59.4 kg (131 lb) 06/18/20 63.9 kg (140 lb 12.8 oz) 04/21/20 62.1 kg (137 lb) 02/03/20 68.5 kg (151 lb) 10/18/19 68.5 kg (151 lb) 10/16/19 68.5 kg (151 lb) 03/28/19 81 kg (178 lb 9.2 oz) Last 3 Weight Readings 09/14/24 1910 09/16/24 0115 09/17/24 0500 Weight: 48.7 kg (107 lb 5.8 oz) 50.8 kg (112 lb) 51.5 kg (113 lb 8.6 oz) Admit Weight: 49.6 kg (Bed Scale, 09/12) Usual Body Weight: see above [place] Body Weight: 48 kg Percent [place] Body Weight: 103% Weight Changes: fluctuations likely fluid related, now net stable Body Mass Index: Body mass index is 21.45 kg/m??. BMI Category: Normal range (18.50- 24.99) Comparative Standards: Estimated Energy Needs: 0911-5172 kcals daily. Method and weight used: 25-03 kcal/kg IBW Estimated Protein Needs: 58-96 grams daily. Method and weight used: 1.2-2g protein/kg IBW Estimated Fluid Needs: 0572-3571 ml daily. Method weight used: 25-30 ml/kg Admit wt Comments: maintenance needs Malnutrition Status: Malnutrition Present: No NUTRITION DIAGNOSIS: Behavioral-Environmental Diagnosis: Food-and nutrition-related knowledge deficit (NB 1.1) related to diverticulitis as evidenced by low fiber diet ed provided. NUTRITION INTERVENTIONS: -Meals & snacks: provide diet as ordered - liberalized Low Potassium and Low Phosphorus diet order and downgraded texture to level 6 per pt request. -Supplements (medical food, vitamin or mineral): provide Ensure Plus HP QD -Nutrition education: diet education on Low Fiber diet provided -Coordination of Care: EPIC chat with Dr. Jones GOAL(S): intake to meet needs NUTRITION MONITORING AND EVALUATION: Labs, weight, PO intake, tolerance to ordered diet and supplements, GI status, POC Sarah Bowman RD, LD [facility] Clinical Dietitian [facility] EPIC Chat Office Number: 09/17/24 3:04 PM * Felicia Pickens MD - 09/17/2024 7:18 AM EDT [facility] General Surgery Daily Progress Note IP Day: 5 Subjective: NAEO. Reports no abdominal tenderness. No reports of nausea/vomiting. Had multiple bowel movements yesterday. Tolerated CLD. Passing gas. C diff negative. Objective: Vitals: 09/17/24 0337 BP: 123/60 Pulse: 84 Resp: 14 Temp: 36.9 ??C (98.4 ??F) SpO2: 97% Temp: [36.7 ??C (98 ??F)-36.9 ??C (98.5 ??F)] 36.9 ??C (98.4 ??F) Pulse: [81-84] 84 Resp: [14-16] 14 BP: (119-142)/(59-84) 123/60 SpO2: [97 %-100 %] 97 % O2 Device: None (Room air) O2 Flow Rate (L/min): [0 L/min] 0 L/min Allergies Allergen Reactions Sulfa (Sulfonamide Antibiotics) Itching and Rash Intake/Output last 3 shifts: I/O last 3 completed shifts: In: 1600 [P.O.:1600] Out: 2700 [Urine:2700] Intake/Output this shift: No intake/output data recorded. Dietary Orders (From admission, onward) Start Ordered 09/17/24 0652 Adult diet Regular Texture; 2000 mg Sodium; Low Phosphorus (800- 1000 mg), Low Potassium (50-70 mEq); Cardiac, Low Fiber (gastric soft) Diet effective now Question Answer Comment Diet Type: Regular Texture Sodium Modifiers: 2000 mg Sodium Renal Modifiers: Low Phosphorus (800-1000 mg) Renal Modifiers: Low Potassium (50-70 mEq) Other Modifiers: Cardiac Other Modifiers: Low Fiber (gastric soft) 09/17/24 0652 Physical Exam General Appearance: Awake alert and oriented, in no acute distress Neck: Trachea Midline Pulmonary: Respirations are nonlabored, chest rise equal, no use of accessory muscles Cardiac: Regular rate and rhythm Abdomen: Soft, non-tender, non-distended and no peritonitis Extremity: No edema Bilateral Upper and lower extremities Skin: Dry. Non-icteric. No Rash. Eyes: Pupils Equal and Round and reactive, sclerae are without icterus Laboratory Data: Lab Results Component Value Date WBC 10.5 09/17/2024 HGB 9.5 (L) 09/17/2024 HCT 27.4 (L) 09/17/2024 MCV 92 09/17/2024 PLT 310 09/17/2024 Lab Results Component Value Date GLU 89 09/17/2024 CALCIUM 7.9 (L) 09/17/2024 K 3.6 09/17/2024 CO2 26 09/17/2024 CL 106 09/17/2024 BUN 5 09/17/2024 CREATININE 0.47 09/17/2024 No results found for: AMYLASE Lab Results Component Value Date LIPASE 26 02/28/2022 Lab Results Component Value Date ALT 14 09/17/2024 AST 22 09/17/2024 ALKPHOS 74 09/17/2024 Lab Results Component Value Date INR 1.2 05/07/2024 INR 0.9 06/30/2022 PROTIME 13.4 (H) 05/07/2024 PROTIME 9.9 06/30/2022 atorvastatin, 80 mg, oral, Nightly busPIRone, 10 mg, oral, BID gabapentin, 300 mg, oral, TID heparin (porcine), 5,000 Units, subcutaneous, Q12H KAMILAH nicotine, 1 patch, transdermal, Daily piperacillin-tazobactam (ZOSYN) IV, 3.375 g, intravenous, Q8H acetaminophen calcium gluconate OR calcium gluconate OR calcium gluconate dextrose dextrose 5 % in water dextrose 50 % in water (D50W) glucagon (human recombinant) HYDROmorphone magnesium sulfate OR magnesium sulfate ondansetron oxyCODONE potassium chloride OR potassium chloride potassium chloride in water OR potassium chloride in water sennosides-docusate sodium sodium chloride Imaging: CT abdomen and pelvis with contrast EXAM: ABDOMEN AND PELVIS CT WITH CONTRAST CLINICAL INFORMATION: assess diverticulitis. TECHNIQUE: CT abdomen and pelvis was performed utilizing 5 mm axial reconstructions following the uneventful administration of nonionic intravenous contrast. Coronal and sagittal reformatted images as well as delayed excretory phase images were obtained and reviewed. Automated exposure control was utilized. COMPARISON: 09/12/2024 FINDINGS: The limited visualized lung bases demonstrate trace amounts of pleural fluid with minimal bibasilaratelectasis. The liver is unremarkable. The gallbladder is present. The spleen is normal. The pancreas is unremarkable. The right kidney is normal. The left kidney is normal. The adrenals are unremarkable. There is contrast within the nondilated colon from recent modified barium swallow examination. There is no evidence of bowel obstruction. There are no dilated loops of bowel or evidence for pneumatosis or free air. There is slight wall thickening involving the cecum and ascending colon, suspected to represent a mild infectious and/or inflammatory colitis. There is a trace amount of perihepatic free fluid. There is no evidence for a discrete abscess. There are calcifications throughout a normal diameter abdominal aorta and iliac arteries. A urinary catheter is present. IMPRESSION: 1. Slight wall thickening involving the cecum and ascending colon, suspected mild nonspecific infectious and/or inflammatory colitis. Ischemia is within the differential consideration though suspected lysed likely. There is a trace amount of adjacent perihepatic free fluid. There is no evidence of bowel obstruction, pneumatosis, free air, or abscess. 2. Trace amount of pleural fluid with minimal bibasilar atelectasis. All CT scans at this facility use dose modulation, iterative reconstruction, and/or weight based dosing when appropriate to reduce radiation dose to as low as reasonably achievable. Finalized by Paras Nixon MD on 09/16/2024 2:53 PM Assessment: Alie Lowe is a 63 y.o. female who presented with altered mental status and lower abdominal pain. CTAP on 09/16 demonstrating colitis. WBC downtrending (13.8 from 20.3day prior) with improved abdominal pain and return of bowel function. Plan: Advance to GI soft Continue broad spectrum IV abx IVF Incentive spirometry, ambulation, out of bed to chair DVT ppx: [id number] Felicia Pickens MD General Surgery Resident, PGY-1 Cosigned by Mert Kirby MD at 09/17/2024 3:58 PM EDT Associated attestation - Mert Kibry MD - 09/17/2024 3:58 PM EDT Attending Attestation: I saw the patient. I performed the critical/carrington portions of the service. I was directly involved inthe management and treatment plan of the patient. I reviewed the resident's note. * Reyes Jones MD - 09/16/2024 11:03 AM EDT Images from the original note were not included. [facility] OF [place] [id number] MED-SURG/ORTHO [address] [place] [id number] Hospital Medicine Progress Note Patient: Alie Lowe Date of : 1960 Room: [facility] PCP: ROSITA Lance Admission date: 09/12/2024 9:16 PM Encounter date: 09/16/24 Hospital Day: 5 SUBJECTIVE Chief complaints: No chief complaint on file. Interval History: Status: poorer. Ms. Lowe reports the development of fairly frequent diarrhea, and currently complains of nauseawithout abdominal pain. She is scheduled to undergo a CT of the abdomen and pelvis with oral contrast to investigate any potential progression of peridiverticular abscess, and whether procedural intervention is required. The patient has remained afebrile, without tachycardia or hypotension. White blood cell count measured 13.8 compared with 20.3 the day prior. Hemoglobin measured 9.3 g/dL compared with 9.8. Review of Systems Constitutional: Negative for activity change, chills and fever. HENT: Negative for trouble swallowing. Eyes: Negative for visual disturbance. Respiratory: Negative for cough, chest tightness and shortness of breath. Cardiovascular: Negative for chest pain and leg swelling. Gastrointestinal: Positive for diarrhea and nausea. Negative for abdominal pain, blood in stool andvomiting. Musculoskeletal: Negative for arthralgias and myalgias. Skin: Negative for color change, pallor, rash and wound. Neurological: Negative for facial asymmetry, weakness, light-headedness and numbness. Hematological: Does not bruise/bleed easily. OBJECTIVE BP 123/67 Pulse 82 Temp 36.8 ??C (98.2 ??F) (Oral) Resp 16 Ht 154.9 cm (5' 1 ) Wt 50.8 kg(112 lb) SpO2 99% BMI 21.16 kg/m?? Temp: [36.7 ??C (98 ??F)-37.1 ??C (98.7 ??F)] 36.8 ??C (98.2 ??F) Pulse: [82-93] 82 Resp: [16-18] 16 BP: (108-143)/(38-76) 123/67 SpO2: [96 %-99 %] 99 % O2 Device: None (Room air) O2 Flow Rate (L/min): [0 L/min] 0 L/min Intake/Output Summary (Last 24 hours) at 09/16/2024 1513 Last data filed at 09/16/2024 1209 Gross per 24 hour Intake 1200 ml Output 1200 ml Net 0 ml Physical Exam Vitals reviewed. Constitutional: General: She is not in acute distress. Appearance: She is well-developed. She is not ill-appearing, toxic-appearing or diaphoretic. Comments: Ms. oLwe is a nontoxic but uncomfortable-appearing 63 year old female who is in no acute pain or respiratory distress. HENT: Head: Normocephalic and atraumatic. Comments: Symmetric facies. Right Ear: External ear normal. Left Ear: External ear normal. Nose: Nose normal. Eyes: General: No scleral icterus. Right eye: No discharge. Left eye: No discharge. Extraocular Movements: Extraocular movements intact. Conjunctiva/sclera: Conjunctivae normal. Neck: Thyroid: No thyromegaly. Comments: No stridor or tracheal deviation noted. Cardiovascular: Rate and Rhythm: Normal rate and regular rhythm. Heart sounds: Normal heart sounds. No murmur heard. No friction rub. No gallop. Pulmonary: Effort: Pulmonary effort is normal. No respiratory distress. Breath sounds: Normal breath sounds. No stridor. No wheezing. Abdominal: General: Bowel sounds are normal. There is no distension. Palpations: Abdomen is soft. Tenderness: There is no abdominal tenderness. There is no guarding or rebound. Comments: No abdominal bruit noted. Musculoskeletal: General: No tenderness. Normal range of motion. Cervical back: Normal range of motion and neck supple. Right lower leg: No edema. Left lower leg: No edema. Skin: General: Skin is warm and dry. Neurological: General: No focal deficit present. Mental Status: She is alert and oriented to person, place, and time. Mental status is at baseline. Sensory: No sensory deficit. Psychiatric: Mood and Affect: Mood normal. Behavior: Behavior normal. Thought Content: Thought content normal. Judgment: Judgment normal. Comments: Ms. Lowe is alert, pleasant and appropriate in conversation. Conversational content does not suggest aberrant mentation. Medications Scheduled: atorvastatin, 80 mg, oral, Nightly busPIRone, 10 mg, oral, BID gabapentin, 300 mg, oral, TID heparin (porcine), 5,000 Units, subcutaneous, Q12H KAMILAH nicotine, 1 patch, transdermal, Daily piperacillin-tazobactam (ZOSYN) IV, 3.375 g, intravenous, Q8H Infusions: cangrelor (KENGREAL) 50 mg in sodium chloride 0.9 % 250 mL (0.2 mg/mL) infusion, 0.75 mcg/kg/min, Last Rate: 0.75 mcg/kg/min (09/15/242102) dextrose 5 % in water, 100 mL/hr As Needed: acetaminophen calcium gluconate OR calcium gluconate OR calcium gluconate dextrose dextrose 5 % in water dextrose 50 % in water (D50W) glucagon (human recombinant) HYDROmorphone magnesium sulfate OR magnesium sulfate ondansetron oxyCODONE potassium chloride OR potassium chloride potassium chloride in water OR potassium chloride in water sennosides-docusate sodium sodium chloride Allergies: Sulfa (sulfonamide antibiotics) Code Status: Full Code Labs Recent Results (from the past 24 hours) Potassium Collection Time: 09/15/24 5:34 PM Result Value Ref Range POTASSIUM 3.8 3.5 - 5.0 mmol/L Comprehensive metabolic panel Collection Time: 09/16/24 4:26 AM Result Value Ref Range SODIUM 138 134 - 146 mmol/L POTASSIUM 4.2 3.5 - 5.0 mmol/L CHLORIDE 107 98 - 109 mmol/L CARBON DIOXIDE 28 22 - 32 mmol/L ANION GAP 3 (L) 5 - 15 mmol/L BLOOD UREA NITROGEN 9 5 - 27 mg/dL CREATININE 0.48 0.40 - 1.00 mg/dL GLUCOSE 96 65 - 99 mg/dL CALCIUM 7.9 (L) 8.5 - 10.5 mg/dL TOTAL PROTEIN 5.3 (L) 6.0 - 8.0 g/dL ALBUMIN 2.8 (L) 3.2 - 5.3 g/dL ALKALINE PHOSPHATASE 72 39 - 130 U/L AST 15 <=41 U/L ALT 7 <=31 U/L BILIRUBIN,TOTAL 0.7 0.3 - 1.2 mg/dL EGFR Non-Race Dependent >90 >=60 ml/min/1.73sq.m Magnesium Collection Time: 09/16/24 4:26 AM Result Value Ref Range MAGNESIUM 1.9 1.8 - 2.6 mg/dL CBC auto differential Collection Time: 09/16/24 4:26 AM Result Value Ref Range WBC 13.8 (H) 4 - 11 x10E9/L RBC Count 3.00 (L) 3.8 - 5.2 X10E12/L Hemoglobin 9.3 (L) 11.7 - 15.5 g/dL Hematocrit 27.4 (L) 35 - 47 % MCV 91 80 - 100 fL MCH 31.1 27 - 34 pg MCHC 34.0 32 - 36 g/dL RDW 14.3 11.5 - 15 % Platelet Count 328 150 - 450 X10E9/L MPV 8.3 7 - 12 fL Neutrophils % 74.7 % Lymphocytes % 11.0 % Monocytes % 7.4 % Eosinophils % 6.5 % Basophils % 0.4 % Neutrophils Absolute (A) 10.3 (H) 1.5 - 6.6 10*3/uL Lymphocytes Absolute 1.5 1.0 - 3.5 10*3/uL Monocytes Absolute 1.0 (H) 0.0 - 0.9 10*3/uL Eosinophils Absolute 0.9 (H) 0.0 - 0.4 10*3/uL Basophils Absolute 0.1 0.0 - 0.2 10*3/uL Differential Type AUTOMATED DIFFERENTIAL Phosphorus Collection Time: 09/16/24 4:26 AM Result Value Ref Range PHOSPHORUS 1.5 (L) 2.4 - 4.9 mg/dL Ionized calcium Collection Time: 09/16/24 4:26 AM Result Value Ref Range IONIZED CALCIUM - ICAN 4.5 4.5 - 5.3 mg/dL Radiology CT abdomen and pelvis with contrast Result Date: 09/16/2024 EXAM: ABDOMEN AND PELVIS CT WITH CONTRAST CLINICAL INFORMATION: assess diverticulitis. TECHNIQUE: CT abdomen and pelvis was performed utilizing 5 mm axial reconstructions following the uneventful administration of nonionic intravenous contrast. Coronal and sagittal reformatted images as well as delayed excretory phase images were obtained and reviewed. Automated exposure control was utilized. COMPARISON: 09/12/2024 FINDINGS: The limited visualized lung bases demonstrate trace amounts of pleural fluid with minimal bibasilar atelectasis. The liver is unremarkable. The gallbladder is present. Thespleen is normal. The pancreas is unremarkable. The right kidney is normal. The left kidney is normal. The adrenals are unremarkable. There is contrast within the nondilated colon from recent modified barium swallow examination. There is no evidence of bowel obstruction. There are no dilated loops of bowel or evidence for pneumatosis or free air. There is slight wall thickening involving the cecum and ascending colon, suspected to represent a mild infectious and/or inflammatory colitis. There is a trace amount of perihepatic free fluid. There is no evidence for a discrete abscess. There are calcifications throughout a normal diameter abdominal aorta and iliac arteries. A urinary catheter ispresent. IMPRESSION: 1. Slight wall thickening involving the cecum and ascending colon, suspected mild nonspecific infectious and/or inflammatory colitis. Ischemia is within the differential consideration though suspected lysed likely. There is a trace amount of adjacent perihepatic free fluid. There is no evidence of bowel obstruction, pneumatosis, free air, or abscess. 2. Trace amount of pleural fluid with minimal bibasilar atelectasis. All CT scans at this facility use dose modulation, iterative reconstruction, and/or weight based dosing when appropriate to reduce radiation dose to as low as reasonably achievable. Finalized by Paras Nixon MD on 09/16/2024 2:53 PM HOSPITAL PROBLEM LIST Principal Problem: Sepsis ([facility]) ASSESSMENT & PLAN Concern for diverticulitis with abscess CT abdomen and pelvis with PO contrast this afternoon Mesenteric ischemia seems less likely based on the lack of postprandial discomfort and patency of the superior mesenteric artery Incidentally, I reviewed the images associated with the CTA of the abdomen and pelvis obtained on 09/12. This demonstrates external compression and heterogeneity of the spleen worrisome for transient ischemia and injury because of dilation of the stomach, though this seems to have resolved based on the images obtained today. The report for the updated imaging remains pending. Maintaining treatment with Zosyn Diarrhea Multiple episodes today with urgency and loss of control Potentially secondary to antibiotics C. Difficile PCR has been ordered ASCVD with recent STEMI Revascularization and stenting of the left anterior descending with temporary pacemaker placement on 05/07/24, revascularization and stenting of the left circumflex 05/09. Maintaining antiplatelet therapy with cangrelor, and will plan to transition back to Effient when appropriate to do so Cardiology has been consulted Heart failure with reduced ejection fraction Holding antihypertensives due to hypotension Appears euvolemic at this time DC planning: Poor candidacy for discharge at this time, will clarify timing based upon her clinicalprogress.. Brandt Grissom PA-C 09/16/2024 3:13 PM [facility] Internal Medicine 7AM-7PM & 7PM-7AM: EpicChat or page through [employer]. DIEGO Castaneda 09/16/24 [id number] Attending Addendum: I Dr Reyes Jones, personally performed a face to face diagnostic evaluation on this patient. I have reviewed the note authored by the advance practice provider including history, review of systems, physical examination, medical decision making and agree with the assessment and plan as written. I have seen and evaluated the patient,I have repeated the carrington portions of the physical exam and concur with the LOBITO findings.I have reviewed all laboratory findings and imaging reprts/films.I agree with the plan as noted. * Felicia Pickens MD - 09/16/2024 9:04 AM EDT [facility] General Surgery Daily Progress Note IP Day: 4 Subjective: NAEO. Reports improving abdominal tenderness. No reports of nausea/vomiting. Had multiple bowel movements yesterday. Passing gas. Objective: Vitals: 09/16/24 0826 BP: 142/66 Pulse: 84 Resp: 16 Temp: 36.7 ??C (98 ??F) SpO2: 98% Temp: [36.7 ??C (98 ??F)-37.1 ??C (98.7 ??F)] 36.7 ??C (98 ??F) Pulse: [63-93] 84 Resp: [13-18] 16 BP: (106-143)/(38-76) 142/66 SpO2: [96 %-99 %] 98 % O2 Device: None (Room air) O2 Flow Rate (L/min): [0 L/min] 0 L/min Allergies Allergen Reactions Sulfa (Sulfonamide Antibiotics) Itching and Rash Intake/Output last 3 shifts: I/O last 3 completed shifts: In: 691.9 [I.V.:608.7; IV Piggyback:83.2] Out: 1890 [Urine:1890] Intake/Output this shift: I/O this shift: In: 700 [P.O.:700] Out: - Dietary Orders (From admission, onward) Start Ordered 09/15/24 1016 Adult diet Clear Liquid Diet effective now Question: Diet Type: Answer: Clear Liquid 09/15/24 1015 Physical Exam General Appearance: Awake alert and oriented, in no acute distress Neck: Trachea Midline Pulmonary: Respirations are nonlabored, chest rise equal, no use of accessory muscles Cardiac: Regular rate and rhythm Abdomen: Soft, non-tender, non-distended and no peritonitis Extremity: No edema Bilateral Upper and lower extremities Skin: Dry. Non-icteric. No Rash. Eyes: Pupils Equal and Round and reactive, sclerae are without icterus Laboratory Data: Lab Results Component Value Date WBC 13.8 (H) 09/16/2024 HGB 9.3 (L) 09/16/2024 HCT 27.4 (L) 09/16/2024 MCV 91 09/16/2024 PLT 328 09/16/2024 Lab Results Component Value Date GLU 96 09/16/2024 CALCIUM 7.9 (L) 09/16/2024 K 4.2 09/16/2024 CO2 28 09/16/2024 CL 107 09/16/2024 BUN 9 09/16/2024 CREATININE 0.48 09/16/2024 No results found for: AMYLASE Lab Results Component Value Date LIPASE 26 02/28/2022 Lab Results Component Value Date ALT 7 09/16/2024 AST 15 09/16/2024 ALKPHOS 72 09/16/2024 Lab Results Component Value Date INR 1.2 05/07/2024 INR 0.9 06/30/2022 PROTIME 13.4 (H) 05/07/2024 PROTIME 9.9 06/30/2022 atorvastatin, 80 mg, oral, Nightly busPIRone, 10 mg, oral, BID gabapentin, 300 mg, oral, TID heparin (porcine), 5,000 Units, subcutaneous, Q12H KAMILAH nicotine, 1 patch, transdermal, Daily piperacillin-tazobactam (ZOSYN) IV, 3.375 g, intravenous, Q8H acetaminophen calcium gluconate OR calcium gluconate OR calcium gluconate dextrose dextrose 5 % in water dextrose 50 % in water (D50W) glucagon (human recombinant) HYDROmorphone magnesium sulfate OR magnesium sulfate ondansetron oxyCODONE potassium chloride OR potassium chloride potassium chloride in water OR potassium chloride in water sennosides-docusate sodium Imaging: X-ray abdomen ap 1 view XR ABDOMEN AP 1 VW: 09/14/2024 11:49 AM Clinical: Worsening abdominal pain. EXAM: ABDOMEN RADIOGRAPH Views: Supine portable exam Comparison: None Findings: Residual contrast present in the colon. Mild gaseous small bowel distention to 3 cm. No abnormal calcifications. Lumbar and bilateral hip degenerative changes. Impression: * Mild gaseous nonspecific small bowel dilatation. Follow-up recommended. Finalized by Adriano Jeffrey MD on 09/14/2024 11:53 AM Assessment: Alie Lowe is a 63 y.o. female who presented with altered mental status and lower abdominal pain. CT imaging and clinical presentation consistent with diverticulitis with abscess. WBC downtrending (20.3 from 22.3 day prior) with improved abdominal pain and return of bowel function. Plan: Advance to GI soft pending CTAP results Continue broad spectrum IV abx CTAP w/ PO contrast today IVF Incentive spirometry, ambulation, out of bed to chair DVT ppx: [id number] Felicia Pickens MD General Surgery Resident, PGY-1 Cosigned by Leobardo Brower MD at 09/16/2024 9:10 AM EDT Associated attestation - Leobardo Brower MD - 09/16/2024 9:10 AM EDT Attending Attestation: I saw the patient. I participated and was physically present during the critical/carrington portions of the service. I was directly involved in the management and treatment plan of the patient. I reviewed the resident's note. Additional Notes/Findings: Patient is alert today. No more confusion. White count continues to improve. We will get a CT with p.o. contrast today to evaluate for any abscesses that might need IR drainageversus surgical procedure. * Kylie Link MD - 09/15/2024 11:31 AM EDT Images from the original note were not included. [facility] DIV[facility] OF [facility] - [facility] INTERMEDIATE/ICU [address] [place] [address] Hospital Medicine Progress Note Patient: Alie Lowe Date of : 1960 Room: [facility] PCP: ROSITA Lance Admission date: 09/12/2024 9:16 PM Encounter date: 09/15/24 Hospital Day: 4 SUBJECTIVE White cell count coming down to 20, abdominal tenderness improved still mild pain, multiple bowel movements OBJECTIVE BP 106/54 Pulse 63 Temp 36.7 ??C (98.1 ??F) (Oral) Resp 13 Ht 154.9 cm (5' 1 ) Wt 48.7 kg(107 lb 5.8 oz) SpO2 98% BMI 20.29 kg/m?? Temp: [35.7 ??C (96.3 ??F)-36.8 ??C (98.3 ??F)] 36.7 ??C (98.1 ??F) Pulse: [63-81] 63 Resp: [8-17] 13 BP: (96-115)/(47-63) 106/54 SpO2: [93 %-100 %] 98 % O2 Device: None (Room air) Intake/Output Summary (Last 24 hours) at 09/15/2024 1131 Last data filed at 09/15/2024 0635 Gross per 24 hour Intake 5364 ml Output 1940 ml Net 3424 ml Physical Exam Constitutional: General: No acute distress. Cardiovascular: Rate and Rhythm: Normal rate and regular rhythm. Heart sounds: Normal heart sounds, S1 normal and S2 normal. Pulmonary: Effort: Pulmonary effort is normal. Breath sounds: Normal breath sounds. Abdominal: abdominal tenderness Musculoskeletal: Right lower leg: No edema. Left lower leg: No edema. Skin: General: Skin is warm and dry. Coloration: Skin is not pale. Neurological: General: No focal deficit present. Psychiatric: Mood and Affect: Mood normal. Behavior: Behavior normal. Medications Scheduled: atorvastatin, 80 mg, oral, Nightly busPIRone, 10 mg, oral, BID gabapentin, 300 mg, oral, TID heparin (porcine), 5,000 Units, subcutaneous, Q12H KAMILAH piperacillin-tazobactam (ZOSYN) IV, 3.375 g, intravenous, Q8H Infusions: cangrelor (KENGREAL) 50 mg in sodium chloride 0.9 % 250 mL (0.2 mg/mL) infusion, 0.75 mcg/kg/min, Last Rate: 0.75 mcg/kg/min (09/14/24 2306) dextrose 5 % in water, 100 mL/hr As Needed: acetaminophen calcium gluconate OR calcium gluconate OR calcium gluconate dextrose dextrose 5 % in water dextrose 50 % in water (D50W) glucagon (human recombinant) HYDROmorphone magnesium sulfate OR magnesium sulfate nicotine ondansetron oxyCODONE potassium chloride OR potassium chloride potassium chloride in water OR potassium chloride in water sennosides-docusate sodium Allergies: Sulfa (sulfonamide antibiotics) Labs Recent Results (from the past 24 hours) Ionized calcium Collection Time: 09/14/24 1:00 PM Result Value Ref Range IONIZED CALCIUM - ICAN 3.9 (L) 4.5 - 5.3 mg/dL Extra Tubes Collection Time: 09/14/24 1:00 PM Narrative The following orders were created for panel order Extra Tubes. Procedure Abnormality Status --------- ------ SST TOP[[id number]] Final result Please view results for these tests on the individual orders. SST TOP Collection Time: 09/14/24 1:00 PM Result Value Ref Range Extra Tube Auto Resulted Comprehensive metabolic panel Collection Time: 09/15/24 5:16 AM Result Value Ref Range SODIUM 141 134 - 146 mmol/L POTASSIUM 3.6 3.5 - 5.0 mmol/L CHLORIDE 104 98 - 109 mmol/L CARBON DIOXIDE 34 (H) 22 - 32 mmol/L ANION GAP 3 (L) 5 - 15 mmol/L BLOOD UREA NITROGEN 26 5 - 27 mg/dL CREATININE 0.63 0.40 - 1.00 mg/dL GLUCOSE 116 (H) 65 - 99 mg/dL CALCIUM 7.9 (L) 8.5 - 10.5 mg/dL TOTAL PROTEIN 5.7 (L) 6.0 - 8.0 g/dL ALBUMIN 3.1 (L) 3.2 - 5.3 g/dL ALKALINE PHOSPHATASE 76 39 - 130 U/L AST 12 <=41 U/L ALT 8 <=31 U/L BILIRUBIN,TOTAL 0.7 0.3 - 1.2 mg/dL EGFR Non-Race Dependent >90 >=60 ml/min/1.73sq.m Magnesium Collection Time: 09/15/24 5:16 AM Result Value Ref Range MAGNESIUM 2.8 (H) 1.8 - 2.6 mg/dL CBC auto differential Collection Time: 09/15/24 5:16 AM Result Value Ref Range WBC 20.3 (H) 4 - 11 x10E9/L RBC Count 3.15 (L) 3.8 - 5.2 X10E12/L Hemoglobin 9.8 (L) 11.7 - 15.5 g/dL Hematocrit 28.6 (L) 35 - 47 % MCV 91 80 - 100 fL MCH 31.1 27 - 34 pg MCHC 34.2 32 - 36 g/dL RDW 14.5 11.5 - 15 % Platelet Count 329 150 - 450 X10E9/L MPV 8.1 7 - 12 fL Neutrophils % 82.6 % Lymphocytes % 8.8 % Monocytes % 6.1 % Eosinophils % 2.2 % Basophils % 0.3 % Neutrophils Absolute (A) 16.8 (H) 1.5 - 6.6 10*3/uL Lymphocytes Absolute 1.8 1.0 - 3.5 10*3/uL Monocytes Absolute 1.2 (H) 0.0 - 0.9 10*3/uL Eosinophils Absolute 0.4 0.0 - 0.4 10*3/uL Basophils Absolute 0.1 0.0 - 0.2 10*3/uL Differential Type AUTOMATED DIFFERENTIAL Phosphorus Collection Time: 09/15/24 5:16 AM Result Value Ref Range PHOSPHORUS 1.4 (L) 2.4 - 4.9 mg/dL Ionized calcium Collection Time: 09/15/24 5:16 AM Result Value Ref Range IONIZED CALCIUM - ICAN 4.4 (L) 4.5 - 5.3 mg/dL Potassium Collection Time: 09/15/24 10:28 AM Result Value Ref Range POTASSIUM 3.8 3.5 - 5.0 mmol/L Radiology X-ray abdomen ap 1 view Result Date: 09/14/2024 Narrative: XR ABDOMEN AP 1 VW: 09/14/2024 11:49 AM Clinical: Worsening abdominal pain. EXAM: ABDOMEN RADIOGRAPH Views: Supine portable exam Comparison: None Findings: Residual contrast present in the colon. Mild gaseous small bowel distention to 3 cm. No abnormal calcifications. Lumbar and bilateral hip degenerative changes. Impression: * Mild gaseous nonspecific small bowel dilatation. Follow-up recommended. Finalized by Adriano Jeffrey MD on 09/14/2024 11:53 AM Vas art doppler lwr bilat mult lev/PVR Result Date: 09/13/2024 Narrative: Right: Essentially normal PVR waveform contour at the ankle level. PT MUKUL is 1.10; DP MUKUL is 1.09. Multiphasic with diastolic flow reversal common femoral, PT and DP, CW Doppler waveforms.Left: Essentially normal PVR waveform contour at the ankle level. PT MUKUL is 1.13; DP MUKUL is 1.13. Multiphasic with diastolic flow reversal common femoral, PT and DP, CW Doppler waveforms. General: In-patient, beside examination. Conclusions: BILATERAL: Normal lower extremity arterial physiological examination at rest. Recommendations: Any questions prior to finalization, please call the reading physician during normal business hours at the phone number beside their name. Fluoroscopy swallow motility function Result Date: 09/13/2024 Narrative: STUDY: Video fluoroscopic swallow study CLINICAL HISTORY: Oral pharyngeal dysphagia, difficulty swallowing COMPARISON: None. FINDINGS: Video fluoroscopic swallow study was performed in conjunction with members of speech pathology. Barium contrast materials of multiple consistencies were a dministered. Fluoroscopic reference air kerma was 4.3 mGy. Fluoroscopy time: 40 seconds. No aspiration or penetration visualized across all tested consistencies. These included thin liquids, applesauce, and fruit. IMPRESSION: No aspiration or penetration visualized across all tested consistencies. Please see speech pathologist report for additional details and recommendations. Finalized by Rory Harris MD on 09/13/2024 12:[address] angiogram abdominal aorta with runoff Result Date: 09/12/2024 Narrative: EXAM: CT CTA ABD AORTA W RUNOFF CLINICAL INFORMATION: No pulses in either foot per ED. TECHNIQUE: Following the uneventful intravenous administration of 100 mL Omnipaque 350, a CT angiogram of the bilateral lower extremity runoff was obtained. Coronal, sagittal, and volume rendered 3-D MIP reformatted images were obtained from the axial CT data. Automated exposure control was utilized.COMPARISON: CTA performed earlier on 09/12/2024 FINDINGS: The upper abdomen is excluded. There are soft and calcified plaque throughout a normal diameter abdominal aorta and iliac arteries without evidence for dissection or aneurysm. The origins of the celiac and superior mesenteric arteries are notincluded. The origins of the renal arteries are normal and widely patent. There is no evidence for stenosis. There are mild calcifications in the right common femoral artery without evidence for stenosis. The right superficial femoral artery is well opacified. There is focal moderate stenosis of the popliteal artery. The tibial peroneal trunk is unremarkable. The peroneal and posterior tibial arteries terminate in the mid calf. The anterior tibial artery extends into the ankle and foot. The left common femoral artery is unremarkable. The left superficial femoral artery is well opacified. There are mild calcifications of the popliteal artery without significant stenosis. There is a focal calcification of the mid anterior tibial artery with focal severe stenosis. The peroneal and posterior tibial arteries terminate in the mid calf. The anterior tibial artery extends into the ankle and foot. There are bilateral superficial cysts of the dorsal knees, suspected popliteal cyst. The partially visualized liver is unremarkable. A distended gallbladder is present. The partially visualized kidneys are unremarkable. The pancreas is mostly not included. The spleen is not included. The adrenalsare not included. There are no dilated loops of bowel or evidence of pneumatosis or free air. Thereis no free fluid. IMPRESSION: 1. Please note, the upper abdomen and proximal abdominal aorta are not included on this examination. 2. Atherosclerotic disease throughout a normal diameter abdominal aorta without evidence for acute dissection, aneurysm, or stenosis. 3. The posterior tibial and peroneal arteries terminate in the mid calf. There is single vessel anterior tibial artery inflow into thebilateral ankles and feet. 3. Focal moderate stenosis of the right popliteal artery. 4. Focal severe stenosis of the mid left anterior tibial artery. 5. Bilateral popliteal Matias's cyst. 6. Please see separate dictation of the dedicated CTA of the abdomen and pelvis. All CT scans at this facility use dose modulation, iterative reconstruction, and/or weight based dosing when appropriate to reduce radiation dose to as low as reasonably achievable. Finalized by Paras Nixon MD on 09/12/2024 4:52 PM Ultrasound abdomen limited Result Date: 09/12/2024 Narrative: GALLBLADDER ULTRASOUND COMPARISON: CT abdomen pelvis 09/12/2024 HISTORY: Distended gallbladder, abnormal CT. Technique: Gallbladder ultrasound performed. Evaluation is compromised as patient was unable to roll for left lateral decubitus positioning due to condition. IMPRESSION: 1. Distended gallbladder. Small amount of gallbladder sludge. No gallbladder wall thickening or pericholecystic fluid. Technologist reports a negative sonographic Mcleod's sign. 2. Biliary ductal dilatation. Common duct measures 8 mm in diameter. Correlate clinically for laboratory values for biliary obstruction. Consider MRCP. Finalized by Leobardo Pascal MD on 09/12/2024 4:[address] angiogram chest Result Date: 09/12/2024 Narrative: CT CTA CHEST HISTORY: dissection, transient alteration of awareness COMPARISON: None TECHNIQUE: Contiguous axial images are obtained of the Chest with 100 mL of Omnipaque 350 IV contrast. Coronal and sagittal reconstructions were performed and reviewed. Sagittal and coronal reformatted images with 3-D Maximum intensity projection reconstructions constructed under concurrent physician supervision on a separate workstation. Automatic exposure control was utilized. All CT scans at this facility use dose modulation, iterative reconstruction, and/or weight based dosing when appropriate to reduce radiation dose to as low as reasonably achievable. FINDINGS: LOWER NECK: Within normal limits. MEDIASTINUM: The visualized thyroid is unremarkable. No mediastinal lymphadenopathy. No hilar lymphadenopathy. AXILLA: No axillary lymphadenopathy. HEART: Heart size is within normal limits. No significant pericardial effusion. Moderate coronary artery calcification/stenting. Nonaneurysmal thoracic aorta with mild atherosclerotic calcification. PULMONARY ARTERIES: Main pulmonary artery size is within normal limits. No filling defects of the main pulmonary arteries or segmental branches to suggest emboli. ABDOMEN: Same day CTA abdomen and pelvis dictated separately. SOFT TISSUES: The soft tissues are unremarkable. BONES: No acute abnormality. LUNGS: The trachea and proximal airways are un remarkable. The lungs are unremarkable. PLEURA: No pleural effusions or pneumothorax. IMPRESSION: *No acute thoracic abnormality. Approved by Resident Mahnaz Eric DO on 09/12/2024 3:49 PM Consuelo Castillo MD have personally reviewed the image(s) and agree with and/or edited the report Workstatio n:[id number] Finalized by Markos Bañuelos MD on 09/12/2024 4:[address] angiogram abdomen and pelvis Result Date: 09/12/2024 Narrative: CT CTA ABD AND PELVIS CLINICAL INFORMATION: dissection COMPARISON: 02/28/2022. PROCEDURE:Routine CT Angiography of the abdomen and pelvis obtained after the uncomplicated intravenous administration of contrast. Sagittal and coronal reformatted images with 3-D Maximum intensity projectionreconstructions constructed under concurrent physician supervision on a independent workstation forevaluation of vascular abnormalities. All CT scans at this facility use dose modulation, iterative reconstruction, and/or weight based dosing when appropriate to reduce radiation dose to as low as reasonably achievable. FINDINGS: Lung bases demonstrate no acute findings. The liver is unremarkable. F luid-filled stomach. Large hydropic gallbladder without marked wall thickening. Prominent common bile duct measuring 8 mm. Arterial enhancement pattern in the spleen. Pancreas is normal. Adrenal glands are unchanged, small benign nodule on the left measuring about 8 mm. Minimal scarring in the kidneys with low- attenuation areas that are too small to characterize. Some patchy cortical areas of lowattenuation present. The bladder is normal. Constipation. No bowel obstruction. No dissection. Atherosclerotic calcifications in the aorta. Calcified and noncalcified atherosclerotic disease. No enlarged lymph nodes. Retroaortic left renal vein. Degenerative changes are present. 3-D reformatted images confirm the source data findings. IMPRESSION: * No evidence of aortic aneurysm or dissection. Severe atherosclerotic changes. * Patchy enhancement in the kidneys, urinalysis is recommended to assess for pyelonephritis. * Hydropic gallbladder and prominent extrahepatic biliary tree, correlate with right upper quadrant ultrasound biliary laboratory data. Surgical consultation could be obtained as indicated. * Please see above for further details. Finalized by Mao Kauffman MD on 09/12/2024 3:[address] brain without contrast Result Date: 09/12/2024 Narrative: CT BRAIN WO CONT CLINICAL INFORMATION: ams COMPARISON: None. PROCEDURE: Routine CT Head obtained without contrast. All CT scans at this facility use dose modulation, iterative reconstruction, and/or weight based dosing when appropriate to reduce radiation dose to as low as reasonably achi evable. FINDINGS: No acute intracranial hemorrhage. No mass effect or midline shift. No extra axialfluid collection. No hydrocephalus. Alexandre-white differentiation is preserved. No depressed calvarialfracture. IMPRESSION: * No acute intracranial findings by CT. Finalized by Mao Kauffman MD on 09/12/2024 3:47 PM HOSPITAL PROBLEM LIST Principal Problem: Sepsis ([facility]) ASSESSMENT & PLAN # sepsis # concern for diverticulitis with abscess # AMS, secondary to above # acute kidney injury likely ATN, improving # metabolic acidosis # chronic HFrEF 20-25% # recent STEMI s/p PCI with GARETT to prox and mid LAD and OM2 05/07 and 05/09/24 # complete heart block # hyperlipidemia # PAD # Focal moderate stenosis of the right popliteal artery # Focal severe stenosis of the mid left anterior tibial artery -continue Zosyn -follow up on infectious workup including urine blood cultures -nephrology on board, currently on D5 half-normal saline -general surgery on board, start clear liquid diet - continue aspirin Lipitor, hold Effient in anticipation of surgical planning, on cangrelor -hold antihypertensives GDMT due to borderline low blood pressure -vascular surgery input noted, no intervention -replace electrolytes per protocol -PTOT Kylie Link MD 09/15/2024 11:31 AM [facility] 7AM-7PM (all facilities): EpicChat or page through [employer]. 7PM-7AM ([facility], [facility]): EpicChat or page, [phone]. 7PM-7AM ([place], [place], [place], [place] and [facility] Re[facility]): EpicChat or page through [employer]. * Felicia Pickens MD - 09/15/2024 10:09 AM EDT Images from the original note were not included. [facility] General Surgery Daily Progress Note IP Day: 3 Subjective: NAEO. Reports improving abdominal tenderness. No reports of nausea/vomiting. Had multiple bowel movements yesterday. Passing gas. Objective: Vitals: 09/14/24 1910 BP: 107/47 Pulse: 70 Resp: (!) 8 Temp: 36.8 ??C (98.3 ??F) SpO2: 93% Temp: [35.7 ??C (96.3 ??F)-36.8 ??C (98.3 ??F)] 36.8 ??C (98.3 ??F) Pulse: [67-81] 70 Resp: [8-17] 8 BP: (96-115)/(47-63) 107/47 SpO2: [93 %-100 %] 93 % O2 Device: None (Room air) Allergies Allergen Reactions Sulfa (Sulfonamide Antibiotics) Itching and Rash Intake/Output last 3 shifts: I/O last 3 completed shifts: In: 5364 [I.V.:4942.9; IV Piggyback:421.1] Out: 3015 [Urine:3015] Intake/Output this shift: No intake/output data recorded. Dietary Orders (From admission, onward) Start Ordered 09/13/24 1336 Adult diet NPO Diet effective now Question: Diet Type: Answer: NPO 09/13/24 1335 Physical Exam General Appearance: Awake alert and oriented, in no acute distress Neck: Trachea Midline Pulmonary: Respirations are nonlabored, chest rise equal, no use of accessory muscles Cardiac: Regular rate and rhythm Abdomen: Soft, non-tender, non-distended and no peritonitis Extremity: No edema Bilateral Upper and lower extremities Skin: Dry. Non-icteric. No Rash. Eyes: Pupils Equal and Round and reactive, sclerae are without icterus Laboratory Data: Lab Results Component Value Date WBC 20.3 (H) 09/15/2024 HGB 9.8 (L) 09/15/2024 HCT 28.6 (L) 09/15/2024 MCV 91 09/15/2024 PLT 329 09/15/2024 Lab Results Component Value Date GLU 116 (H) 09/15/2024 CALCIUM 7.9 (L) 09/15/2024 K 3.6 09/15/2024 CO2 34 (H) 09/15/2024 CL 104 09/15/2024 BUN 26 09/15/2024 CREATININE 0.63 09/15/2024 No results found for: AMYLASE Lab Results Component Value Date LIPASE 26 02/28/2022 Lab Results Component Value Date ALT 8 09/15/2024 AST 12 09/15/2024 ALKPHOS 76 09/15/2024 Lab Results Component Value Date INR 1.2 05/07/2024 INR 0.9 06/30/2022 PROTIME 13.4 (H) 05/07/2024 PROTIME 9.9 06/30/2022 atorvastatin, 80 mg, oral, Nightly busPIRone, 10 mg, oral, BID gabapentin, 300 mg, oral, TID heparin (porcine), 5,000 Units, subcutaneous, Q12H KAMILAH piperacillin-tazobactam (ZOSYN) IV, 3.375 g, intravenous, Q8H acetaminophen calcium gluconate OR calcium gluconate OR calcium gluconate dextrose dextrose 5 % in water dextrose 50 % in water (D50W) glucagon (human recombinant) HYDROmorphone magnesium sulfate OR magnesium sulfate nicotine ondansetron oxyCODONE potassium chloride OR potassium chloride potassium chloride in water OR potassium chloride in water sennosides-docusate sodium Imaging: X-ray abdomen ap 1 view XR ABDOMEN AP 1 VW: 09/14/2024 11:49 AM Clinical: Worsening abdominal pain. EXAM: ABDOMEN RADIOGRAPH Views: Supine portable exam Comparison: None Findings: Residual contrast present in the colon. Mild gaseous small bowel distention to 3 cm. No abnormal calcifications. Lumbar and bilateral hip degenerative changes. Impression: * Mild gaseous nonspecific small bowel dilatation. Follow-up recommended. Finalized by Adriano Jeffrey MD on 09/14/2024 11:53 AM Assessment: Alie Lowe is a 63 y.o. female who presented with altered mental status and lower abdominal pain. CT imaging and clinical presentation consistent with diverticulitis with abscess. WBC downtrending (20.3 from 22.3 day prior) with improved abdominal pain and return of bowel function. Plan: Advance to [facility]D Continue broad spectrum IV abx Plan for CT with oral contrast tomorrow IVF Incentive spirometry, ambulation, out of bed to chair DVT ppx: [id number] Felicia Pickens MD General Surgery Resident, PGY-1 Cosigned by Leobardo Brower MD at 09/16/2024 9:09 AM EDT Associated attestation - Leobardo Brower MD - 09/16/2024 9:09 AM EDT Attending Attestation: I saw the patient. I participated and was physically present during the critical/carrington portions of the service. I was directly involved in the management and treatment plan of the patient. I reviewed the resident's note. Additional Notes/Findings: White count continues to improve. Abdomen is soft no peritonitis. Continue IV antibiotics. Serial abdominal exams. Hopefully we will get through this without surgical intervention. * Kylie Link MD - 09/14/2024 1:53 PM EDT Images from the original note were not included. [facility] INTERNAL MEDICINE [facility] DIV[facility] OF [facility] - 4 INTERMEDIATE/ICU [address] [facility] [id number] Hospital Medicine Progress Note Patient: Alie Lowe Date of : 1960 Room: [facility]/01 PCP: ROSTIA Lance Admission date: 09/12/2024 9:16 PM Encounter date: 09/14/24 Hospital Day: 3 SUBJECTIVE White cell count coming down to 22, creatinine improving to 1.15 electrolyte low, patient reports very tender abdomen OBJECTIVE BP 96/51 Pulse 72 Temp (!) 35.7 ??C (96.3 ??F) (Axillary) Resp 11 Ht 154.9 cm (5' 1 ) Wt 48.4 kg (106 lb 11.2 oz) SpO2 100% BMI 20.16 kg/m?? Temp: [35.7 ??C (96.3 ??F)-37 ??C (98.6 ??F)] 35.7 ??C (96.3 ??F) Pulse: [69-91] 72 Resp: [10-25] 11 BP: (91-105)/(34-55) 96/51 SpO2: [88 %-100 %] 100 % O2 Device: None (Room air) Intake/Output Summary (Last 24 hours) at 09/14/2024 1353 Last data filed at 09/14/2024 1200 Gross per 24 hour Intake -- Output 1725 ml Net -1725 ml Physical Exam Constitutional: General: No acute distress. Cardiovascular: Rate and Rhythm: Normal rate and regular rhythm. Heart sounds: Normal heart sounds, S1 normal and S2 normal. Pulmonary: Effort: Pulmonary effort is normal. Breath sounds: Normal breath sounds. Abdominal: Diffuse abdominal tenderness Musculoskeletal: Right lower leg: No edema. Left lower leg: No edema. Skin: General: Skin is warm and dry. Coloration: Skin is not pale. Neurological: General: No focal deficit present. Psychiatric: Mood and Affect: Mood normal. Behavior: Behavior normal. Medications Scheduled: atorvastatin, 80 mg, oral, Nightly heparin (porcine), 5,000 Units, subcutaneous, Q12H KAMILAH piperacillin-tazobactam (ZOSYN) IV, 3.375 g, intravenous, Q8H thiamine (B-1) 100 mg in sodium chloride 0.9 % 50 mL IVPB, 100 mg, intravenous, Daily Infusions: dextrose 5 % in water, 100 mL/hr dextrose 5 % and sodium chloride 0.45 % with KCl 20 mEq/L, 75 mL/hr, Last Rate: 75 mL/hr (09/14/24 1000) As Needed: acetaminophen calcium gluconate OR calcium gluconate OR calcium gluconate dextrose dextrose 5 % in water dextrose 50 % in water (D50W) glucagon (human recombinant) HYDROmorphone magnesium sulfate OR magnesium sulfate nicotine ondansetron potassium chloride OR potassium chloride potassium chloride in water OR potassium chloride in water sennosides-docusate sodium Allergies: Sulfa (sulfonamide antibiotics) Labs Recent Results (from the past 24 hours) Sodium Collection Time: 09/13/24 2:09 PM Result Value Ref Range SODIUM 133 (L) 134 - 146 mmol/L Microalbumin - Albumin: Creatinine Urine Ratio Collection Time: 09/13/24 3:04 PM Specimen: Urine Result Value Ref Range URINE CREATININE,RDM 65.47 mg/dL MALB/CREAT RATIO 35.1 (H) 0.0 - 30.0 mg/g MICROALBUMIN, URINE 2.3 (H) 0.0 - 1.9 mg/dL Sodium Collection Time: 09/13/24 3:52 PM Result Value Ref Range SODIUM 133 (L) 134 - 146 mmol/L Ionized calcium Collection Time: 09/13/24 7:48 PM Result Value Ref Range IONIZED CALCIUM - ICAN 3.9 (L) 4.5 - 5.3 mg/dL CBC auto differential Collection Time: 09/14/24 4:07 AM Result Value Ref Range WBC 22.3 (H) 4 - 11 x10E9/L RBC Count 3.32 (L) 3.8 - 5.2 X10E12/L Hemoglobin 10.3 (L) 11.7 - 15.5 g/dL Hematocrit 29.7 (L) 35 - 47 % MCV 90 80 - 100 fL MCH 31.0 27 - 34 pg MCHC 34.6 32 - 36 g/dL RDW 14.9 11.5 - 15 % Platelet Count 283 150 - 450 X10E9/L MPV 8.2 7 - 12 fL Neutrophils % 88.3 % Lymphocytes % 5.5 % Monocytes % 5.4 % Eosinophils % 0.6 % Basophils % 0.2 % Neutrophils Absolute (A) 19.7 (H) 1.5 - 6.6 10*3/uL Lymphocytes Absolute 1.2 1.0 - 3.5 10*3/uL Monocytes Absolute 1.2 (H) 0.0 - 0.9 10*3/uL Eosinophils Absolute 0.1 0.0 - 0.4 10*3/uL Basophils Absolute 0.0 0.0 - 0.2 10*3/uL Differential Type AUTOMATED DIFFERENTIAL Complement profile (C3 AND C4) Collection Time: 09/14/24 4:07 AM Result Value Ref Range COMPLEMENT C3 102 86 - 184 mg/dL COMPLEMENT C4 20 16 - 47 mg/dL Hepatitis B surface antigen Collection Time: 09/14/24 4:07 AM Result Value Ref Range HEPATITIS B SURF AG Non-Reactive Non-Reactive Hepatitis B Surface Antibody Quantitation Collection Time: 09/14/24 4:07 AM Result Value Ref Range ANTI HBS QUANT. <3.0 mIU/mL Narrative Vaccinated: >=10 mIU/mL, Positive (Immune) Unvaccinated: <10 mIU/mL, Negative (Not Immune) Hepatitis C(HCV) Ab w/ Reflex to PCR Collection Time: 09/14/24 4:07 AM Result Value Ref Range ANTI HCV W/PCR REFLX Non-Reactive Non-Reactive Rheumatoid factor Collection Time: 09/14/24 4:07 AM Result Value Ref Range RHEUMATOID FACTOR 14 <20 IU/mL Comprehensive metabolic panel Collection Time: 09/14/24 4:15 AM Result Value Ref Range SODIUM 137 134 - 146 mmol/L POTASSIUM 2.8 (L) 3.5 - 5.0 mmol/L CHLORIDE 95 (L) 98 - 109 mmol/L CARBON DIOXIDE 32 22 - 32 mmol/L ANION GAP 10 5 - 15 mmol/L BLOOD UREA NITROGEN 79 (H) 5 - 27 mg/dL CREATININE 1.15 (H) 0.40 - 1.00 mg/dL GLUCOSE 161 (H) 65 - 99 mg/dL CALCIUM 6.9 (LL) 8.5 - 10.5 mg/dL TOTAL PROTEIN 5.7 (L) 6.0 - 8.0 g/dL ALBUMIN 3.1 (L) 3.2 - 5.3 g/dL ALKALINE PHOSPHATASE 72 39 - 130 U/L AST 14 <=41 U/L ALT 8 <=31 U/L BILIRUBIN,TOTAL 0.5 0.3 - 1.2 mg/dL EGFR Non-Race Dependent 54 (L) >=60 ml/min/1.73sq.m Magnesium Collection Time: 09/14/24 4:15 AM Result Value Ref Range MAGNESIUM 2.8 (H) 1.8 - 2.6 mg/dL Phosphorus Collection Time: 09/14/24 4:15 AM Result Value Ref Range PHOSPHORUS 3.1 2.4 - 4.9 mg/dL Ionized calcium Collection Time: 09/14/24 4:15 AM Result Value Ref Range IONIZED CALCIUM - ICAN 3.8 (L) 4.5 - 5.3 mg/dL Potassium Collection Time: 09/14/24 10:27 AM Result Value Ref Range POTASSIUM 3.5 3.5 - 5.0 mmol/L Ionized calcium Collection Time: 09/14/24 1:00 PM Result Value Ref Range IONIZED CALCIUM - ICAN 3.9 (L) 4.5 - 5.3 mg/dL Extra Tubes Collection Time: 09/14/24 1:00 PM Narrative The following orders were created for panel order Extra Tubes. Procedure Abnormality Status --------- ------ [facility] TOP[[id number]] In process Please view results for these tests on the individual orders. Radiology X-ray abdomen ap 1 view Result Date: 09/14/2024 Narrative: XR ABDOMEN AP 1 VW: 09/14/2024 11:49 AM Clinical: Worsening abdominal pain. EXAM: ABDOMENRADIOGRAPH Views: Supine portable exam Comparison: None Findings: Residual contrast present in the colon. Mild gaseous small bowel distention to 3 cm. No abnormal calcifications. Lumbar and bilateralhip degenerative changes. Impression: * Mild gaseous nonspecific small bowel dilatation. Follow-up recommended. Finalized by Adriano Jeffrey MD on 09/14/2024 11:53 AM Vas art doppler lwr bilat mult lev/PVR Result Date: 09/13/2024 Narrative: Right: Essentially normal PVR waveform contour at the ankle level. PT MUKUL is 1.10; DP MUKUL is 1.09. Multiphasic with diastolic flow reversal common femoral, PT and DP, CW Doppler waveforms.Left: Essentially normal PVR waveform contour at the ankle level. PT MUKUL is 1.13; DP MUKUL is 1.13. Multiphasic with diastolic flow reversal common femoral, PT and DP, CW Doppler waveforms. General: In-patient, beside examination. Conclusions: BILATERAL: Normal lower extremity arterial physiological examination at rest. Recommendations: Any questions prior to finalization, please call the reading physician during normal business hours at the phone number beside their name. Fluoroscopy swallow motility function Result Date: 09/13/2024 Narrative: STUDY: Video fluoroscopic swallow study CLINICAL HISTORY: Oral pharyngeal dysphagia, difficulty swallowing COMPARISON: None. FINDINGS: Video fluoroscopic swallow study was performed in conjunction with members of speech pathology. Barium contrast materials of multiple consistencies were a dministered. Fluoroscopic reference air kerma was 4.3 mGy. Fluoroscopy time: 40 seconds. No aspiration or penetration visualized across all tested consistencies. These included thin liquids, applesauce, and fruit. IMPRESSION: No aspiration or penetration visualized across all tested consistencies. Please see speech pathologist report for additional details and recommendations. Finalized by Rory Harris MD on 09/13/2024 12:[address] angiogram abdominal aorta with runoff Result Date: 09/12/2024 Narrative: EXAM: CT CTA ABD AORTA W RUNOFF CLINICAL INFORMATION: No pulses in either foot per ED. TECHNIQUE: Following the uneventful intravenous administration of 100 mL Omnipaque 350, a CT angiogram of the bilateral lower extremity runoff was obtained. Coronal, sagittal, and volume rendered 3-D MIP reformatted images were obtained from the axial CT data. Automated exposure control was utilized.COMPARISON: CTA performed earlier on 09/12/2024 FINDINGS: The upper abdomen is excluded. There are soft and calcified plaque throughout a normal diameter abdominal aorta and iliac arteries without evidence for dissection or aneurysm. The origins of the celiac and superior mesenteric arteries are notincluded. The origins of the renal arteries are normal and widely patent. There is no evidence for stenosis. There are mild calcifications in the right common femoral artery without evidence for stenosis. The right superficial femoral artery is well opacified. There is focal moderate stenosis of the popliteal artery. The tibial peroneal trunk is unremarkable. The peroneal and posterior tibial arteries terminate in the mid calf. The anterior tibial artery extends into the ankle and foot. The left common femoral artery is unremarkable. The left superficial femoral artery is well opacified. There are mild calcifications of the popliteal artery without significant stenosis. There is a focal calcification of the mid anterior tibial artery with focal severe stenosis. The peroneal and posterior tibial arteries terminate in the mid calf. The anterior tibial artery extends into the ankle and foot. There are bilateral superficial cysts of the dorsal knees, suspected popliteal cyst. The partially visualized liver is unremarkable. A distended gallbladder is present. The partially visualized kidneys are unremarkable. The pancreas is mostly not included. The spleen is not included. The adrenalsare not included. There are no dilated loops of bowel or evidence of pneumatosis or free air. Thereis no free fluid. IMPRESSION: 1. Please note, the upper abdomen and proximal abdominal aorta are not included on this examination. 2. Atherosclerotic disease throughout a normal diameter abdominal aorta without evidence for acute dissection, aneurysm, or stenosis. 3. The posterior tibial and peroneal arteries terminate in the mid calf. There is single vessel anterior tibial artery inflow into thebilateral ankles and feet. 3. Focal moderate stenosis of the right popliteal artery. 4. Focal severe stenosis of the mid left anterior tibial artery. 5. Bilateral popliteal Matias's cyst. 6. Please see separate dictation of the dedicated CTA of the abdomen and pelvis. All CT scans at this facility use dose modulation, iterative reconstruction, and/or weight based dosing when appropriate to reduce radiation dose to as low as reasonably achievable. Finalized by Paras Nixon MD on 09/12/2024 4:52 PM Ultrasound abdomen limited Result Date: 09/12/2024 Narrative: GALLBLADDER ULTRASOUND COMPARISON: CT abdomen pelvis 09/12/2024 HISTORY: Distended gallbladder, abnormal CT. Technique: Gallbladder ultrasound performed. Evaluation is compromised as patient was unable to roll for left lateral decubitus positioning due to condition. IMPRESSION: 1. Distended gallbladder. Small amount of gallbladder sludge. No gallbladder wall thickening or pericholecystic fluid. Technologist reports a negative sonographic Mcleod's sign. 2. Biliary ductal dilatation. Common duct measures 8 mm in diameter. Correlate clinically for laboratory values for biliary obstruction. Consider MRCP. Finalized by Leobardo Pascal MD on 09/12/2024 4:[address] angiogram chest Result Date: 09/12/2024 Narrative: CT CTA CHEST HISTORY: dissection, transient alteration of awareness COMPARISON: None TECHNIQUE: Contiguous axial images are obtained of the Chest with 100 mL of Omnipaque 350 IV contrast. Coronal and sagittal reconstructions were performed and reviewed. Sagittal and coronal reformatted images with 3-D Maximum intensity projection reconstructions constructed under concurrent physician supervision on a separate workstation. Automatic exposure control was utilized. All CT scans at this facility use dose modulation, iterative reconstruction, and/or weight based dosing when appropriate to reduce radiation dose to as low as reasonably achievable. FINDINGS: LOWER NECK: Within normal limits. MEDIASTINUM: The visualized thyroid is unremarkable. No mediastinal lymphadenopathy. No hilar lymphadenopathy. AXILLA: No axillary lymphadenopathy. HEART: Heart size is within normal limits. No significant pericardial effusion. Moderate coronary artery calcification/stenting. Nonaneurysmal thoracic aorta with mild atherosclerotic calcification. PULMONARY ARTERIES: Main pulmonary artery size is within normal limits. No filling defects of the main pulmonary arteries or segmental branches to suggest emboli. ABDOMEN: Same day CTA abdomen and pelvis dictated separately. SOFT TISSUES: The soft tissues are unremarkable. BONES: No acute abnormality. LUNGS: The trachea and proximal airways are un remarkable. The lungs are unremarkable. PLEURA: No pleural effusions or pneumothorax. IMPRESSION: *No acute thoracic abnormality. Approved by Resident Mahnaz Eric DO on 09/12/2024 3:49 PM Consuelo Castillo MD have personally reviewed the image(s) and agree with and/or edited the report Workstatio n:[id number] Finalized by Markos Bañuelos MD on 09/12/2024 4:[address] angiogram abdomen and pelvis Result Date: 09/12/2024 Narrative: CT CTA ABD AND PELVIS CLINICAL INFORMATION: dissection COMPARISON: 02/28/2022. PROCEDURE:Routine CT Angiography of the abdomen and pelvis obtained after the uncomplicated intravenous administration of contrast. Sagittal and coronal reformatted images with 3-D Maximum intensity projectionreconstructions constructed under concurrent physician supervision on a independent workstation forevaluation of vascular abnormalities. All CT scans at this facility use dose modulation, iterative reconstruction, and/or weight based dosing when appropriate to reduce radiation dose to as low as reasonably achievable. FINDINGS: Lung bases demonstrate no acute findings. The liver is unremarkable. F luid-filled stomach. Large hydropic gallbladder without marked wall thickening. Prominent common bile duct measuring 8 mm. Arterial enhancement pattern in the spleen. Pancreas is normal. Adrenal glands are unchanged, small benign nodule on the left measuring about 8 mm. Minimal scarring in the kidneys with low- attenuation areas that are too small to characterize. Some patchy cortical areas of lowattenuation present. The bladder is normal. Constipation. No bowel obstruction. No dissection. Atherosclerotic calcifications in the aorta. Calcified and noncalcified atherosclerotic disease. No enlarged lymph nodes. Retroaortic left renal vein. Degenerative changes are present. 3-D reformatted images confirm the source data findings. IMPRESSION: * No evidence of aortic aneurysm or dissection. Severe atherosclerotic changes. * Patchy enhancement in the kidneys, urinalysis is recommended to assess for pyelonephritis. * Hydropic gallbladder and prominent extrahepatic biliary tree, correlate with right upper quadrant ultrasound biliary laboratory data. Surgical consultation could be obtained as indicated. * Please see above for further details. Finalized by Mao Kauffman MD on 09/12/2024 3:[address] brain without contrast Result Date: 09/12/2024 Narrative: CT BRAIN WO CONT CLINICAL INFORMATION: ams COMPARISON: None. PROCEDURE: Routine CT Head obtained without contrast. All CT scans at this facility use dose modulation, iterative reconstruction, and/or weight based dosing when appropriate to reduce radiation dose to as low as reasonably achi evable. FINDINGS: No acute intracranial hemorrhage. No mass effect or midline shift. No extra axialfluid collection. No hydrocephalus. Alexandre-white differentiation is preserved. No depressed calvarialfracture. IMPRESSION: * No acute intracranial findings by CT. Finalized by Mao Kauffman MD on 09/12/2024 3:47 PM HOSPITAL PROBLEM LIST Principal Problem: Sepsis ([facility]) ASSESSMENT & PLAN # sepsis # concern for gallbladder infection, and diverticulitis with abscess # AMS, secondary to above # acute kidney injury likely ATN, improving # metabolic acidosis # chronic HFrEF 20-25% # recent STEMI s/p PCI with GARETT to prox and mid LAD and OM2 05/07 and 05/09/24 # complete heart block # hyperlipidemia # PAD # Focal moderate stenosis of the right popliteal artery # Focal severe stenosis of the mid left anterior tibial artery -currently patient is on Zosyn continue -follow up on infectious workup including urine blood cultures -nephrology on board, currently on D5 half-normal saline -general surgery on board, keep NPO - continue aspirin Lipitor, hold Effient in anticipation of surgical planning -hold antihypertensives GDMT due to borderline low blood pressure -vascular surgery input noted, no intervention -replace electrolytes per protocol -PTOT Kylie Link MD 09/14/2024 1:53 PM [facility] 7AM-7PM (all facilities): EpicAsad or page through Vocera. 7PM-7AM ([facility], [facility]): EpicDawnt or page, [phone]. 7PM-7AM ([place], [place], [place], [place] and [facility] Re[facility]): EpicChat or page through Discovery Machine. * Yuni Skinner RP - 09/14/2024 9:55 AM EDT [facility] Department of Pharmacy Pharmacist to Physician Communication The dose of piperacillin/tazobactam for bacteremia has been changed to 3.375 grams every 8 hours per the [facility] approved renal dosing guidelines, based on an estimated creatinine clearance is 38.8 mL/min (A) (by C-G formula based on SCr of 1.15 mg/dL (H)). Thank you, Yuni Skinner [facility] * Lele Aguila MD - 09/14/2024 9:10 AM EDT Images from the original note were not included. NEPHROLOGY SIGN OFF NOTE Assessment 1. Acute kidney injury attributed to acute tubular necrosis versus prerenal fluctuations. Renal function improving nicely with administration of isotonic IV fluids. Creatinine level down to 1.15 mg/dL today. 2. Sepsis with Diverticulitis/associated abscess: Receiving IV Zosyn, showing some clinical improvement with decreasing leukocytosis. Blood cultures have been negative. General surgery service on board with no plan for surgical intervention. Abscesses not big enough for drainage. 3. Severe metabolic acidosis in the setting of sepsis and underlying acute kidney injury has been (over) corrected with alkaline IV infusion. 4. Hypovolemic Hyponatremia in the setting of acute kidney injury has been corrected. 5. CHF: Presently compensated. 6. Volume status: I suspect she is close to being euvolemic now. Will have to be cautious with administering further IV fluids given background of severe cardiomyopathy. Plan 1. Discontinue alkaline IV infusion 2. Change IV fluids to D5 0.45% NaCl plus 20 mEq KCL at 75 mL/hour NEPHROLOGY ADDENDUM: Nephrology service will sign off the case. No need for renal follow-up Subjective/Interval history no events Problem List Acute kidney injury attributed to acute tubular necrosis versus prerenal fluctuations. Creatinine baseline 0.4 mg/dL. Renal workup is pending. Diverticulitis with associated abscess Metabolic acidosis in the setting of acute kidney injury and sepsis has been corrected Hypertension CAD status post LAD and OM2 stents in April 2024 H/o Complete heart block in April 2024 does not have pacemaker. Active smoker H/o alcohol abuse History of scabies TMJ dysfunction Chronic neck pain/Multiple cervical spine steroid injections and radiofrequency ablation. Ischemic cardiomyopathy/2D echo April of 2024 shows EF 20-25%, normal LV thickness and normal rightventricular systolic function. Trace to mild MR and trace TR. Physical Exam Admission Weight: Weight: 49.6 kg (109 lb 5.6 oz) I/O last 3 completed shifts: In: 1166.1 [P.O.:90; I.V.:977.5; IV Piggyback:98.6] Out: 2515 [Urine:2515] Weight change: -1.2 kg (-2 lb 10.3 oz) Wt Readings from Last 3 Encounters: 09/13/24 48.4 kg (106 lb 11.2 oz) 09/12/24 45.8 kg (101 lb) 06/17/24 46.7 kg (103 lb) Vitals: Vitals: 09/14/24 0500 09/14/24 0600 09/14/24 0700 09/14/24 0800 BP: (!) 96/34 Pulse: 75 91 71 83 Resp: 14 18 12 10 Temp: 36.9 ??C (98.4 ??F) TempSrc: Oral SpO2: 96% 97% 100% 97% Weight: Height: General: Alert, oriented x 3 and in mild distress Psychiatric: Has a normal mood and affect. HEENT: Head normocephalic. Eyes: Conjunctivae and EOM are normal. Pupils are equal, round and reactive to light. Cardiovascular: Normal rate, regular rhythm and normal heart sounds. No JVD. Pulmonary/Chest: Air entry bilaterally equal. No wheezes or rales. Abdominal: Soft, tender in the right lower quadrant area Musculoskeletal: Normal range of motion. No tenderness. Neurological: No obvious deficits. Skin: No rash noted. Extremities: No edema Meds: Current Meds: atorvastatin, 80 mg, oral, Nightly heparin (porcine), 5,000 Units, subcutaneous, Q12H KAMILAH piperacillin-tazobactam (ZOSYN) IV, 3.375 g, intravenous, Q12H thiamine (B-1) 100 mg in sodium chloride 0.9 % 50 mL IVPB, 100 mg, intravenous, Daily Continuous Infusions: dextrose 5 % in water, 100 mL/hr dextrose 5 % in water 1,000 mL with sodium bicarbonate 8.4 % (1 mEq/mL) 150 mEq infusion, 150 mL/hr, Last Rate: 150 mL/hr (09/14/24 0048) Laboratory Studies Results from last 7 days Lab Units 09/14/2441409/13/24 1552 09/13/24 1409 09/13/24 0855 09/13/2441009/12/24 2230 09/12/24 1554 SODIUM mmol/L 137 133* 133* < > 130* 127* 122* POTASSIUM mmol/L 2.8* -- -- -- 4.3 4.9 5.3* CHLORIDE mmol/L 95* -- -- -- 103 102 97* CO2 mmol/L 32 -- -- -- 12* 10* 8* BUN mg/dL 79* -- -- -- 105* 107* 118* CREATININE mg/dL 1.15* -- -- -- 2.30* 2.69* 3.51* CALCIUM mg/dL 6.9* -- -- -- 7.2* 7.5* 7.1* PHOSPHORUS mg/dL 3.1 -- -- -- -- -- -- MAGNESIUM mg/dL 2.8* -- -- -- 3.1* -- 3.1* < > = values in this interval not displayed. Results from last 7 days Lab Units 09/14/2440609/13/2441009/12/24 1554 WBC x10E9/L 22.3* 31.5* 33.2* HEMOGLOBIN g/dL 10.3* 12.8 11.0* HEMATOCRIT % 29.7* 37.0 32.6* PLATELETS X10E9/L 283 342 422 Results from last 7 days Lab Units 09/14/2441409/13/2441009/12/24 1554 MAGNESIUM mg/dL 2.8* 3.1* 3.1* Lab Results Component Value Date CALCIUM 6.9 (LL) 09/14/2024 Lab Results Component Value Date IRON 30 (L) 04/06/2024 TIBC 358 04/06/2024 FERRITIN 17 04/06/2024 Please contact me at [phone] (Office) or [phone] (Answering service) with any questions. Please feel free to contact me through Enplug Secure chat during the daytime hours, if no response after 5 minutes then call the answering service. Lele Aguila MD [facility] This note was created with the assistance of a speech-recognition program. Although the intention is to generate a document that actually reflects the content of the visit, no guarantees can be provided that every mistake has been identified and corrected by editing. * Felicia Pickens MD - 09/14/2024 7:41 AM EDT Images from the original note were not included. [facility] General Surgery Daily Progress Note IP Day: 2 Subjective: NAEO. Reports continued abdominal tenderness. No reports of nausea/vomiting. Objective: Vitals: 09/14/24 0400 BP: 93/47 Pulse: 75 Resp: 18 Temp: SpO2: 97% Temp: [36.6 ??C (97.9 ??F)-37 ??C (98.6 ??F)] 36.9 ??C (98.5 ??F) Pulse: [75-93] 75 Resp: [12-25] 18 BP: (91-112)/(38-50) 93/47 SpO2: [88 %-100 %] 97 % O2 Device: None (Room air) Allergies Allergen Reactions Sulfa (Sulfonamide Antibiotics) Itching and Rash Intake/Output last 3 shifts: I/O last 3 completed shifts: In: 1166.1 [P.O.:90; I.V.:977.5; IV Piggyback:98.6] Out: 2515 [Urine:2515] Intake/Output this shift: No intake/output data recorded. Dietary Orders (From admission, onward) Start Ordered 09/13/24 1336 Adult diet NPO Diet effective now Question: Diet Type: Answer: NPO 09/13/24 1335 Physical Exam General Appearance: Awake alert and oriented, in no acute distress Neck: Trachea Midline Pulmonary: Respirations are nonlabored, chest rise equal, no use of accessory muscles Cardiac: Regular rate and rhythm Abdomen: Soft, non-tender, non-distended and no peritonitis Extremity: No edema Bilateral Upper and lower extremities Skin: Dry. Non-icteric. No Rash. Eyes: Pupils Equal and Round and reactive, sclerae are without icterus Laboratory Data: Lab Results Component Value Date WBC 22.3 (H) 09/14/2024 HGB 10.3 (L) 09/14/2024 HCT 29.7 (L) 09/14/2024 MCV 90 09/14/2024 PLT 283 09/14/2024 Lab Results Component Value Date GLU 161 (H) 09/14/2024 CALCIUM 6.9 (LL) 09/14/2024 K 2.8 (L) 09/14/2024 CO2 32 09/14/2024 CL 95 (L) 09/14/2024 BUN 79 (H) 09/14/2024 CREATININE 1.15 (H) 09/14/2024 No results found for: AMYLASE Lab Results Component Value Date LIPASE 26 02/28/2022 Lab Results Component Value Date ALT 8 09/14/2024 AST 14 09/14/2024 ALKPHOS 72 09/14/2024 Lab Results Component Value Date INR 1.2 05/07/2024 INR 0.9 06/30/2022 PROTIME 13.4 (H) 05/07/2024 PROTIME 9.9 06/30/2022 atorvastatin, 80 mg, oral, Nightly heparin (porcine), 5,000 Units, subcutaneous, Q12H KAMILAH piperacillin-tazobactam (ZOSYN) IV, 3.375 g, intravenous, Q12H thiamine (B-1) 100 mg in sodium chloride 0.9 % 50 mL IVPB, 100 mg, intravenous, Daily acetaminophen calcium gluconate OR calcium gluconate OR calcium gluconate dextrose dextrose 5 % in water dextrose 50 % in water (D50W) glucagon (human recombinant) magnesium sulfate OR magnesium sulfate nicotine ondansetron potassium chloride OR potassium chloride potassium chloride in water OR potassium chloride in water sennosides-docusate sodium Imaging: Vas art doppler lwr bilat mult lev/PVR Right: Essentially normal PVR waveform contour at the ankle level. PT MUKUL is 1.10; DP MUKUL is 1.09. Multiphasic with diastolic flow reversal common femoral, PT and DP, CW Doppler waveforms. Left: Essentially normal PVR waveform contour at the ankle level. PT MUKUL is 1.13; DP MUKUL is 1.13. Multiphasic with diastolic flow reversal common femoral, PT and DP, CW Doppler waveforms. General: In-patient, beside examination. Conclusions: BILATERAL: Normal lower extremity arterial physiological examination at rest. Recommendations: Any questions prior to finalization, please call the reading physician during normal business hours at the phone number beside their name. Fluoroscopy swallow motility function STUDY: Video fluoroscopic swallow study CLINICAL HISTORY: Oral pharyngeal dysphagia, difficulty swallowing COMPARISON: None. FINDINGS: Video fluoroscopic swallow study was performed in conjunction with members of speech pathology. Barium contrast materials of multiple consistencies were administered. Fluoroscopic reference air kermawas 4.3 mGy. Fluoroscopy time: 40 seconds. No aspiration or penetration visualized across all tested consistencies. These included thin liquids, applesauce, and fruit. IMPRESSION: No aspiration or penetration visualized across all tested consistencies. Please see speech pathologist report for additional details and recommendations. Finalized by Rory Harris MD on 09/13/2024 12:24 PM Assessment: Alie Lowe is a 63 y.o. female who presented with altered mental status and lower abdominal pain. CT imaging and clinical presentation consistent with diverticulitis with abscess. Plan: NPO Continue broad spectrum IV abx IVF Incentive spirometry, ambulation, out of bed to chair DVT ppx: [id number] Felicia Pickens MD General Surgery Resident, PGY-1 Cosigned by Leobardo Brower MD at 09/14/2024 1:04 PM EDT Associated attestation - Leobardo Brower MD - 09/14/2024 1:04 PM EDT Attending Attestation: I saw the patient. I participated and was physically present during the critical/carrington portions of the service. I was directly involved in the management and treatment plan of the patient. I reviewed the resident's note. 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 No tenderness in the upper abdomen.She is still altered mental status. White count has significantly decreased. Continue broad-spectrum antibiotics. Strict NPO. Okay for meds orally. May consider repeat CT on day 5. I do not see a window for IR to drain. But I do think she has a intramural abscess most likely diverticulitis. It could be liquid stool around solid stool * Margo Hyde RPH - 09/13/2024 1:44 PM EDT [facility] Department of Pharmacy Pharmacist to Physician Communication The dose of piperacillin-tazobactam for sepsis has been changed to 3.375 grams infused every 12 hours by extended infusion over 4 hours per the [facility] approved extended-infusion beta-lactam dosing policy, based on an estimated creatinine clearance is 19 mL/min (A) (by C-G formula based on SCr of 2.3 mg/dL (H)). Thank you, Margo Hyde RPH documented in this encounter H&P Notes * Kylie Link MD - 09/13/2024 12:00 AM EDT Images from the original note were not included. [facility] - INTERMEDIATE/ICU [address] [place] [id number] Hospital Medicine History & Physical Patient: Alie Lowe Date of : 1960 Room: [facility]/ PCP: ROSITA Lance Admission date: 09/12/2024 9:16 PM Encounter date: 09/13/24 Hospital Day: 2 SUBJECTIVE Alie Lowe is a 63 y.o. female who presents with altered mental status. Patient is not able to provide reliable history, so this was gathered from chart review as family is not currently present on arrival. It was reported that patient's family called EMS due to patient being confused and lethargic. On EMS arrival, she was found cold and mottled from the waist down. In the ED, patient's initial temperature was 95.8 with margie hugger applied. Work up was initiated in the ED, labs showed WBC 33.2, HGB 11.0, sodium 122, potassium 5.3, chloride 97, carbon dioxide 8, creatinine 3.51, GRR012, albumin 3.1, anion gap 17, magnesium 3.1, troponin 12->13, and procalcitonin 3.48. Lactate 2.3. UA positive for glucose, blood and protein. Blood cultures and urine culture obtained and pending. CT brain w/o contrast with no acute findings. CTA chest with no acute findings. CTA abdomen/pelvis showed no aortic aneurysm or dissection, severe arthrosclerotic changes, patchy enhancement of the kidneys, a hydropic gallbladder and prominent extrahepatic biliary tree. US abdomen showed a distended gallbladder with small amount of gallbladder sludge and biliary ductal dilatation. A CTA abdominal aorta with run off was also obtained which showed atherosclerotic disease throughout, focal moderate stenosis of the right popliteal artery and focal severe stenosis of the mid left anterior tibial artery. She was started on sepsis fluid bolus, vancomycin and zosyn. Transfer was requested for higher level of care and MRCP. Accepting provider recommended getting an ABG and discussing the case with nephrology as well. ABG showed pH 7.089, pCO2 20.2, HCO3 6.1. Accepting provider requested update from ED after seeing ABG results, ED provider stated she was altered but improved - again suggested consulting with nephrology for fluid recommendations given severe metabolic acidosis. ED provider gave an amp of bicarb and transferred patient. Patient evaluated on arrival to the ICU, patient continues to be very altered. She is oriented to herself otherwise unable to tell the year or provide history. She answers questions inappropriately. Lower legs continue to be mottled with weak pulses. Repeat BMP and VBG ordered. Chart reviewed, she was admitted 05/07/24 to 05/18/24 after being found with a complete heart block and STEMI. She was urgently taken to the section laborer and is s/p GARETT to pLAD and PCI of OM. ECHO revealed EF of 20-25% on 05/11/24. Nephrology followed for hypovolemic hyponatremia. Neurology was consulted for acute metabolic encephalopathy thought to be multifactorial to alcohol, age, substance abuse and self medication with herbal drugs. She was started on aspirin, Effient, Lipitor, Toprol, valsartan, Farxiga, Aldactone, Diovan. She had LifeVest placed prior to discharge. Patient was discharged to [facility]. 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 She followed up with cardiology on 06/17/24 and was noted to have taken her LifeVest off due to concerns of it not working. Allergies: Sulfa (sulfonamide antibiotics) Prior to Admission medications Medication Sig Start Date End Date Taking? Authorizing Provider aspirin 81 mg chewable tablet Chew 1 tablet (81 mg total) and swallow in the morning for 360 days. 06/17/24 06/12/25 Teagan Carrillo PA-C atorvastatin (LIPITOR) 80 mg tablet Take 1 tablet (80 mg total) by mouth nightly. 06/17/24 AUDREY SmithC busPIRone (BUSPAR) 10 mg tablet Take 1 tablet (10 mg total) by mouth in the morning and 1 tablet (10 mg total) before bedtime. 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 06/17/24 06/12/25 AUDREY SmithC DULoxetine (CYMBALTA) 60 mg capsule Take 1 capsule (60 mg total) by mouth in the morning. 05/18/24 Domi E Phlipot, [employer]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 folic acid (FOLVITE) 1 mg tablet Take 1 tablet (1 mg total) by mouth in the morning. 05/18/24 Domi EPhlipot, [employer] E[employer]OM[employer]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 gabapentin (NEURONTIN) 300 mg capsule Take 1 capsule (300 mg total) by mouth in the morning and 1 capsule (300 mg total) at noon and 1 capsule (300 mg total) in the evening and 1 capsule (300 mg total) before bedtime. Not In System Ref Prov metoprolol succinate XL (TOPROL XL) 25 mg 24 hr tablet Take 0.5 tablets (12.5 mg total) by mouth inthe morning. 06/17/24 AUDREY SmithC nicotine polacrilex (NICORETTE) 4 MG gum Chew 1 each (4 mg total) as directed as needed for smokingcessation. As recommended on Nicorette gum label, weeks 1-6 1 piece every 1-2 hours, week 7-9 1 piece every 2-4 hours, weeks 10-12 1 piece every 4-8 hours. Do not use nicotine gum simultaneously withother tobacco product 06/17/24 AUDREY SmithC prasugreL HCl (EFFIENT) 10 mg tablet Take 1 tablet (10 mg total) by mouth in the morning. 06/17/24 DIEGO Smith-C sennosides-docusate sodium (SENOKOT-S) 8.6-50 mg Take 2 tablets by mouth 2 (two) times a day as needed for constipation. 05/18/24 Domi E Phlipot, 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 spironolactone (ALDACTONE) 25 mg tablet Take 1 tablet (25 mg total) by mouth in the morning. 06/17/24DIEGO Smith-C thiamine HCl (VITAMIN B-1) 100 mg tablet Take 1 tablet (100 mg total) by mouth in the morning. 05/18/24 Domi E Phlipot, [employer]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 valsartan (DIOVAN) 40 mg tablet Take 1 tablet (40 mg total) by mouth in the morning and 1 tablet (40 mg total) before bedtime. 06/17/24 AUDREY SmithC Past Medical History: Patient has a past medical history of Asthma, Asthma, Back pain, Cervical disc disorder, CHB (complete heart block) ([facility]) (05/07/2024), HTN (hypertension), scabies, Low back pain, Lumbosacral disc disease, Neck pain, Osteoarthritis, and TMJ (temporomandibular joint syndrome). Past Surgical History: Patient has a past surgical history that includes section; Rotator cuff repair (Left); section (1980,,, ); orthopedic surgery; Tonsillectomy (1969); Injection Nerve Block (Left, 02/12/2018); Injection Nerve Block (Left, 03/16/2018); Radiofrequency ablation (Left, 04/30/2018); Injection Nerve Block (Right, 07/23/2018); Injection Nerve Block (Right, 09/14/2018); Radiofrequency ablation (Right, 11/15/2019); Radiofrequency ablation (Left, 07/08/2022); Radiofrequency ablation (Right, 07/29/2022); Coronary stent placement (N/A, 05/07/2024); Invasive Cardiology Procedure (N/A, 05/07/2024); Coronary stent placement (N/A, 05/07/2024); Invasive Cardiology Procedure (N/A, 05/07/2024); Invasive Cardiology Procedure (N/A, 05/07/2024); Coronary stent placement (N/A, 05/09/2024); Invasive Cardiology Procedure (N/A, 05/09/2024); and Coronary stent placement (N/A, 05/09/2024). Family History: Patient's family history includes Heart disease in her father, mother, and son. Social History: Patient reports that she has been smoking cigarettes. She has never used smokeless tobacco. She reports current alcohol use. She reports that she does not use drugs. Review of Systems Constitutional: Negative for chills, fever and unexpected weight change. HENT: Negative for congestion, dental problem, hearing loss, rhinorrhea, sore throat, trouble swallowing and voice change. Eyes: Negative for visual disturbance. Respiratory: Negative for cough, sputum production, shortness of breath and wheezing. Cardiovascular: Negative for chest pain, palpitations and leg swelling. Gastrointestinal: Positive for abdominal pain. Negative for blood in stool, melena, constipation, diarrhea, nausea and vomiting. Genitourinary: Negative for difficulty urinating, dysuria, enuresis, frequency and hematuria. Musculoskeletal: Negative for arthralgias, joint swelling and myalgias. Skin: Negative for color change, rash and wound. Neurological: Positive for confusion. Negative for dizziness, seizures, syncope, speech difficulty,numbness and headaches. Hematological: Negative for adenopathy. Does not bruise/bleed easily. Psychiatric/Behavioral: Negative for dysphoric mood and sleep disturbance. The patient is not nervous/anxious. OBJECTIVE There were no vitals taken for this visit. Temp: [35.4 ??C (95.8 ??F)-36.1 ??C (96.9 ??F)] 36.1 ??C (96.9 ??F) Pulse: [83-92] 91 Resp: [12-23] 15 BP: (91-150)/(45-97) 91/75 FiO2 (%): [21 %] 21 % SpO2: [75 %-100 %] 100 % O2 Device: None (Room air) O2 Flow Rate (L/min): [0 L/min] 0 L/min No intake or output data in the 24 hours ending 09/13/24 0136 Physical Exam Constitutional: General: Not in acute distress. Appearance: Chronically ill appearance. HENT: Head: Normocephalic and atraumatic. Right Ear: External ear normal. Left Ear: External ear normal. Mouth/Throat: Lips: [place]. Mouth: Mucous membranes are dry. Eyes: General: No scleral icterus. Extraocular Movements: Extraocular movements intact. Pupils: Pupils are equal, round, and reactive to light. Cardiovascular: Rate and Rhythm: Normal rate and regular rhythm. Pulses: DP pulses are weak bilaterally. Heart sounds: Normal heart sounds, S1 normal and S2 normal. No murmur heard. No friction rub. No gallop. Pulmonary: Effort: Pulmonary effort is normal. Breath sounds: Normal breath sounds. No decreased breath sounds, wheezing, rhonchi or rales. Abdominal: General: Bowel sounds are normal. Palpations: Abdomen is soft. Tenderness: There is abdominal tenderness over the right upper quadrant and suprapubic region. Musculoskeletal: Right lower leg: No edema. Left lower leg: No edema. Skin: General: Skin is warm and dry. Findings: Lower legs, mid natarajan to feet are mottled bilaterally. Neurological: General: No focal deficit present. Mental Status: Alert and oriented to person. Psychiatric: Behavior: Behavior is cooperative. Medications Scheduled: [START ON 09/13/2024] cefTRIAXone (ROCEPHIN) IV, 2,000 mg, intravenous, Q24H [START ON 09/13/2024] heparin (porcine), 5,000 Units, subcutaneous, Q12H KAMILAH metroNIDAZOLE, 500 mg, intravenous, Q12H [START ON 09/13/2024] thiamine (B-1) 100 mg in sodium chloride 0.9 % 50 mL IVPB, 100 mg, intravenous,Daily Infusions: dextrose 5 % in water, 100 mL/hr As Needed: acetaminophen dextrose dextrose 5 % in water dextrose 50 % in water (D50W) glucagon (human recombinant) ondansetron sennosides-docusate sodium Allergies: Sulfa (sulfonamide antibiotics) Labs Recent Results (from the past 24 hours) Extra Tubes Collection Time: 09/12/24 3:53 PM Narrative The following orders were created for panel order Extra Tubes. Procedure Abnormality Status --------- ------ Light Blue Top[[id number]] Final result Please view results for these tests on the individual orders. Light Blue Top Collection Time: 09/12/24 3:53 PM Result Value Ref Range Extra Tube Auto Resulted CBC auto differential Collection Time: 09/12/24 3:54 PM Result Value Ref Range WBC 33.2 (H) 4 - 11 x10E9/L RBC Count 3.55 (L) 3.8 - 5.2 X10E12/L Hemoglobin 11.0 (L) 11.7 - 15.5 g/dL Hematocrit 32.6 (L) 35 - 47 % MCV 92 80 - 100 fL MCH 31.0 27 - 34 pg MCHC 33.7 32 - 36 g/dL RDW 14.6 11.5 - 15 % Platelet Count 422 150 - 450 X10E9/L MPV 8.3 7 - 12 fL Bands % 5 % Neutrophils % 90 % Lymphocytes % 3 % Monocytes % 2 % Neutrophils Absolute (M) 31.5 (H) 1.5 - 6.6 10*3/uL Lymphocytes Absolute 1.0 1.0 - 3.5 10*3/uL Monocytes Absolute 0.7 0.0 - 0.9 10*3/uL [place] Cells 1+ RBC Fragments 1+ Elliptocytes 1+ Differential Type MANUAL DIFFERENTIAL Comprehensive metabolic panel Collection Time: 09/12/24 3:54 PM Result Value Ref Range SODIUM 122 (L) 134 - 146 mmol/L POTASSIUM 5.3 (H) 3.5 - 5.0 mmol/L CHLORIDE 97 (L) 98 - 109 mmol/L CARBON DIOXIDE 8 (LL) 22 - 32 mmol/L ANION GAP 17 (H) 5 - 15 mmol/L BLOOD UREA NITROGEN 118 (H) 5 - 27 mg/dL CREATININE 3.51 (H) 0.40 - 1.00 mg/dL GLUCOSE 185 (H) 65 - 99 mg/dL CALCIUM 7.1 (L) 8.5 - 10.5 mg/dL TOTAL PROTEIN 5.9 (L) 6.0 - 8.0 g/dL ALBUMIN 3.1 (L) 3.2 - 5.3 g/dL ALKALINE PHOSPHATASE 77 39 - 130 U/L AST 16 <=41 U/L ALT 16 <=31 U/L BILIRUBIN,TOTAL 0.3 0.3 - 1.2 mg/dL EGFR Non-Race Dependent 14 (L) >=60 ml/min/1.73sq.m Lactate w/ Reflex Collection Time: 09/12/24 3:54 PM Result Value Ref Range LACTATE W/REFLEX 2.3 (H) 0.4 - 2.0 mmol/L Magnesium Collection Time: 09/12/24 3:54 PM Result Value Ref Range MAGNESIUM 3.1 (H) 1.8 - 2.6 mg/dL Troponin I, High Sensitivity Collection Time: 09/12/24 3:54 PM Narrative The following orders were created for panel order Troponin I, High Sensitivity. Procedure Abnormality Status --------- ------ Troponin I, High Sensiti...[[id number]] Normal Final result Troponin I, High Sensiti...[[id number]] Normal Final result Please view results for these tests on the individual orders. Troponin I, High Sensitivity 0 Hour Collection Time: 09/12/24 3:54 PM Result Value Ref Range TROPONIN I, HIGH SENSITIVITY 12 <16 ng/L Procalcitonin Collection Time: 09/12/24 3:54 PM Result Value Ref Range PROCALCITONIN 3.48 (H) <0.05 ng/mL Narrative <0.50 ng/mL - Low risk of severe sepsis and/or septic shock. <2.00 ng/mL - Recommend retesting within 6-24 hours. >2.00 ng/mL - High risk of sepsis and/or septic shock. Extra Urine Collection Time: 09/12/24 4:36 PM Specimen: Urine, Clean Catch Midstream Result Value Ref Range Extra Tube Auto Resulted Extra Urine Culture Collection Time: 09/12/24 4:36 PM Specimen: Urine, Clean Catch Midstream Result Value Ref Range Extra Tube Auto Resulted Extra Urine [place] Collection Time: 09/12/24 4:36 PM Specimen: Urine, Clean Catch Midstream Result Value Ref Range Extra Tube Auto Resulted POCT Nursing Urine Macroscopic UA Collection Time: 09/12/24 4:55 PM Result Value Ref Range POC Urine Specific [place] 1.020 1.010, 1.015, 1.020, 1.025 POC Urine Leukocyte Esterase Negative Negative POC Urine Nitrite Negative Negative POC Urine pH 5.5 5.0, 6.0, 6.5, 7.0, 7.5, 8.0, 8.5, 5.5 POC Urine Protein 100 mg/dL (A) Negative POC Urine Glucose 100 mg/dL (A) Negative POC Urine Ketones Negative Negative POC Urine Urobilinogen 0.2 E.U./dL POC Urine Bilirubin Negative Negative POC Urine Blood/HGB Moderate (A) Negative Troponin I, High Sensitivity 1 Hour Collection Time: 09/12/24 5:08 PM Result Value Ref Range TROPONIN I, HIGH SENSITIVITY 13 <16 ng/L Blood Gas, Arterial Collection Time: 09/12/24 6:40 PM Result Value Ref Range Sample type ARTERIAL pH, Arterial 7.089 (LL) 7.350 - 7.450 pCO2, Arterial 20.2 (LL) 35.0 - 45.0 mmHg PO2, Arterial 121 (H) 80 - 100 mmHg Base, Deficit -22.0 (L) 0.0 - 2.0 mmol/L HCO3, Arterial 6.1 (L) 22.0 - 26.0 mmol/L %O2 Saturation, Arterial 97.0 >90.0 % Gilberto's test N/A SPO2 121 % Sample site R Rad Insp. O2 conc. 21 % Source Of Oxygen Room Air Lactate Collection Time: 09/12/24 7:46 PM Result Value Ref Range LACTATE 1.0 0.4 - 2.0 mmol/L Basic Metabolic Panel Collection Time: 09/12/24 10:30 PM Result Value Ref Range SODIUM 127 (L) 134 - 146 mmol/L POTASSIUM 4.9 3.5 - 5.0 mmol/L CHLORIDE 102 98 - 109 mmol/L CARBON DIOXIDE 10 (L) 22 - 32 mmol/L ANION GAP 15 5 - 15 mmol/L BLOOD UREA NITROGEN 107 (H) 5 - 27 mg/dL CREATININE 2.69 (H) 0.40 - 1.00 mg/dL GLUCOSE 127 (H) 65 - 99 mg/dL CALCIUM 7.5 (L) 8.5 - 10.5 mg/dL EGFR Non-Race Dependent 20 (L) >=60 ml/min/1.73sq.m Lactate w/ Reflex Collection Time: 09/12/24 10:30 PM Result Value Ref Range LACTATE W/REFLEX 1.4 0.4 - 2.0 mmol/L Narrative Result did not trigger repeat Lactate, re-order if needed. CK Total Collection Time: 09/12/24 10:30 PM Result Value Ref Range CPK 34 24 - 170 U/L Blood gas, venous Collection Time: 09/12/24 10:39 PM Result Value Ref Range Sample type VENOUS pH, Venous 7.163 (L) 7.320 - 7.420 pCO2, Venous 20.1 (L) 35.0 - 50.0 mmHg pO2, Venous 62 (H) 30 - 50 mmHg Base, Deficit -19.0 (L) 0.0 - 2.0 mmol/L HCO3, Venous 7.2 (L) 20.0 - 24.0 mmol/L %O2 Saturation, Venous 85.0 % Gilberto's test N/A SPO2 100 % Sample site N/A Insp. O2 conc. 21 % Source Of Oxygen Room Air Radiology CT angiogram abdominal aorta with runoff Result Date: 09/12/2024 Narrative: EXAM: CT CTA ABD AORTA W RUNOFF CLINICAL INFORMATION: No pulses in either foot per ED. TECHNIQUE: Following the uneventful intravenous administration of 100 mL Omnipaque 350, a CT angiogram of the bilateral lower extremity runoff was obtained. Coronal, sagittal, and volume rendered 3-D MIP reformatted images were obtained from the axial CT data. Automated exposure control was utilized.COMPARISON: CTA performed earlier on 09/12/2024 FINDINGS: The upper abdomen is excluded. There are soft and calcified plaque throughout a normal diameter abdominal aorta and iliac arteries without evidence for dissection or aneurysm. The origins of the celiac and superior mesenteric arteries are notincluded. The origins of the renal arteries are normal and widely patent. There is no evidence for stenosis. There are mild calcifications in the right common femoral artery without evidence for stenosis. The right superficial femoral artery is well opacified. There is focal moderate stenosis of the popliteal artery. The tibial peroneal trunk is unremarkable. The peroneal and posterior tibial arteries terminate in the mid calf. The anterior tibial artery extends into the ankle and foot. The left common femoral artery is unremarkable. The left superficial femoral artery is well opacified. There are mild calcifications of the popliteal artery without significant stenosis. There is a focal calcification of the mid anterior tibial artery with focal severe stenosis. The peroneal and posterior tibial arteries terminate in the mid calf. The anterior tibial artery extends into the ankle and foot. There are bilateral superficial cysts of the dorsal knees, suspected popliteal cyst. The partially visualized liver is unremarkable. A distended gallbladder is present. The partially visualized kidneys are unremarkable. The pancreas is mostly not included. The spleen is not included. The adrenalsare not included. There are no dilated loops of bowel or evidence of pneumatosis or free air. Thereis no free fluid. IMPRESSION: 1. Please note, the upper abdomen and proximal abdominal aorta are not included on this examination. 2. Atherosclerotic disease throughout a normal diameter abdominal aorta without evidence for acute dissection, aneurysm, or stenosis. 3. The posterior tibial and peroneal arteries terminate in the mid calf. There is single vessel anterior tibial artery inflow into thebilateral ankles and feet. 3. Focal moderate stenosis of the right popliteal artery. 4. Focal severe stenosis of the mid left anterior tibial artery. 5. Bilateral popliteal Matias's cyst. 6. Please see separate dictation of the dedicated CTA of the abdomen and pelvis. All CT scans at this facility use dose modulation, iterative reconstruction, and/or weight based dosing when appropriate to reduce radiation dose to as low as reasonably achievable. Finalized by Paras Nixon MD on 09/12/2024 4:52 PM Ultrasound abdomen limited Result Date: 09/12/2024 Narrative: GALLBLADDER ULTRASOUND COMPARISON: CT abdomen pelvis 09/12/2024 HISTORY: Distended gallbladder, abnormal CT. Technique: Gallbladder ultrasound performed. Evaluation is compromised as patient was unable to roll for left lateral decubitus positioning due to condition. IMPRESSION: 1. Distended gallbladder. Small amount of gallbladder sludge. No gallbladder wall thickening or pericholecystic fluid. Technologist reports a negative sonographic Mcleod's sign. 2. Biliary ductal dilatation. Common duct measures 8 mm in diameter. Correlate clinically for laboratory values for biliary obstruction. Consider MRCP. Finalized by Leobardo Pascal MD on 09/12/2024 4:[address] angiogram chest Result Date: 09/12/2024 Narrative: CT CTA CHEST HISTORY: dissection, transient alteration of awareness COMPARISON: None TECHNIQUE: Contiguous axial images are obtained of the Chest with 100 mL of Omnipaque 350 IV contrast. Coronal and sagittal reconstructions were performed and reviewed. Sagittal and coronal reformatted images with 3-D Maximum intensity projection reconstructions constructed under concurrent physician supervision on a separate workstation. Automatic exposure control was utilized. All CT scans at this facility use dose modulation, iterative reconstruction, and/or weight based dosing when appropriate to reduce radiation dose to as low as reasonably achievable. FINDINGS: LOWER NECK: Within normal limits. MEDIASTINUM: The visualized thyroid is unremarkable. No mediastinal lymphadenopathy. No hilar lymphadenopathy. AXILLA: No axillary lymphadenopathy. HEART: Heart size is within normal limits. No significant pericardial effusion. Moderate coronary artery calcification/stenting. Nonaneurysmal thoracic aorta with mild atherosclerotic calcification. PULMONARY ARTERIES: Main pulmonary artery size is within normal limits. No filling defects of the main pulmonary arteries or segmental branches to suggest emboli. ABDOMEN: Same day CTA abdomen and pelvis dictated separately. SOFT TISSUES: The soft tissues are unremarkable. BONES: No acute abnormality. LUNGS: The trachea and proximal airways are un remarkable. The lungs are unremarkable. PLEURA: No pleural effusions or pneumothorax. IMPRESSION: *No acute thoracic abnormality. Approved by Resident Mahnaz Eric DO on 09/12/2024 3:49 PM Consuelo Castillo MD have personally reviewed the image(s) and agree with and/or edited the report Workstatio n:[id number] Finalized by Markos Bañuelos MD on 09/12/2024 4:[address] angiogram abdomen and pelvis Result Date: 09/12/2024 Narrative: CT CTA ABD AND PELVIS CLINICAL INFORMATION: dissection COMPARISON: 02/28/2022. PROCEDURE:Routine CT Angiography of the abdomen and pelvis obtained after the uncomplicated intravenous administration of contrast. Sagittal and coronal reformatted images with 3-D Maximum intensity projectionreconstructions constructed under concurrent physician supervision on a independent workstation forevaluation of vascular abnormalities. All CT scans at this facility use dose modulation, iterative reconstruction, and/or weight based dosing when appropriate to reduce radiation dose to as low as reasonably achievable. FINDINGS: Lung bases demonstrate no acute findings. The liver is unremarkable. F luid-filled stomach. Large hydropic gallbladder without marked wall thickening. Prominent common bile duct measuring 8 mm. Arterial enhancement pattern in the spleen. Pancreas is normal. Adrenal glands are unchanged, small benign nodule on the left measuring about 8 mm. Minimal scarring in the kidneys with low- attenuation areas that are too small to characterize. Some patchy cortical areas of lowattenuation present. The bladder is normal. Constipation. No bowel obstruction. No dissection. Atherosclerotic calcifications in the aorta. Calcified and noncalcified atherosclerotic disease. No enlarged lymph nodes. Retroaortic left renal vein. Degenerative changes are present. 3-D reformatted images confirm the source data findings. IMPRESSION: * No evidence of aortic aneurysm or dissection. Severe atherosclerotic changes. * Patchy enhancement in the kidneys, urinalysis is recommended to assess for pyelonephritis. * Hydropic gallbladder and prominent extrahepatic biliary tree, correlate with right upper quadrant ultrasound biliary laboratory data. Surgical consultation could be obtained as indicated. * Please see above for further details. Finalized by Mao Kauffman MD on 09/12/2024 3:[address] brain without contrast Result Date: 09/12/2024 Narrative: CT BRAIN WO CONT CLINICAL INFORMATION: ams COMPARISON: None. PROCEDURE: Routine CT Head obtained without contrast. All CT scans at this facility use dose modulation, iterative reconstruction, and/or weight based dosing when appropriate to reduce radiation dose to as low as reasonably achi evable. FINDINGS: No acute intracranial hemorrhage. No mass effect or midline shift. No extra axialfluid collection. No hydrocephalus. Alexandre-white differentiation is preserved. No depressed calvarialfracture. IMPRESSION: * No acute intracranial findings by CT. Finalized by Mao Kauffman MD on 09/12/2024 3:47 PM HOSPITAL PROBLEM LIST Principal Problem: Sepsis ([facility]) ASSESSMENT & PLAN Severe sepsis, suspect due to intra-abdominal infection with concerns of cholecystitis and biliary ductal dilatation Meeting criteria with WBC 33.2, creatinine 3.51, lactate 2.3, temperature 35.4, HR>90 Abd US with distended gallbladder, small amount of gallbladder sludge and biliary ductal dilatation Order MRCP pending nephrology clearance for additional contrast use Will need general surgery versus GI consult LFTs WNL on admission, continue to trend Started on ceftriaxone and flagyl Procalcitonin 3.48, continue to trend, and lactate has normalized Blood cultures and urine culture pending Acute kidney injury Metabolic acidosis Hyponatremia Initial labs with creatinine 3.51 / pH 7.089 / HCO3 6.1 / PCO2 20.2 / sodium 122 Improved to creatinine 2.69 / pH 7.163 / HCO3 7.2 and PCO2 20.1 / sodium 127 after an amp of bicarbonate and NS bolus 1374mL (sepsis 30mg/kg dosing) Nephrology consulted with recommendations for D5 in water with sodium bicarbonate continuous fluids Sodium q 4 hours Peripheral vascular disease Focal moderate stenosis of the right popliteal artery Focal severe stenosis of the mid left anterior tibial artery Pulses and lower extremity mottling improved after margie hugger use and improvement in hypothermia Consider vascular surgery consult if not resolving Acute encephalopathy, likely toxic metabolic Alcoholism Opiate/substance abuse Followed up for neuropsychiatric testing after last admission, suspicion for Korsakoff syndrome Continue thiamine supplementation, resume folic acid supplementation when able to tolerate PO Check UDS Failed bedside swallow study, speech consulted Monitor for signs and symptoms of withdrawal, unclear if she resumed drinking after last hospitalization, reported she has been sober for a year to nursing on admission Anterior STEMI in 04/2024 CAD s/p PCI/GARETT pLAD 05/07/24 and staged PCI/GARETT OM2 on 05/09/24 Ischemic cardiomyopathy HFrEF 20-25%, plan for 3 month follow up Essential hypertension, normotensive Mixed hyperlipidemia Resume aspirin, Effient, Lipitor, Toprol, valsartan, Farxiga, Aldactone, Diovan when able pending ability to take PO and blood pressure readings, currently soft She is not wearing her LifeVest on arrival Sepsis suspected, yes-with organ failure including, acute kidney injury and encephalopathy as evidenced by laboratory values. Presumed source; intra- abdominal infection. Testing obtained; blood cultures x2, urine culture, lactate, and procalcitonin. Fluid resuscitation; 30mL/kg IVF bolus. Antibiotics; ceftriaxone and metronidazole. Vasopressors; not required. Chart reviewed. Admission orders placed. Home medications pending verification. DVT/VTE prophylaxis: SCD and heparin SQ. PT/OT to evaluate and treat. DC planning: pending clinical course, came from home. Medically Ready for Discharge: Anticipated in 2-4 Days LITO PILLAI PA-C 09/12/2024 11:03 PM [facility] Internal Medicine 7AM-7PM & 7PM-7AM: EpicChat or page through On-Call Finder. Lito Pillai PA-C 09/13/24 0213 I, Kylie Link MD, personally performed the face to face diagnostic evaluation on this patient. My findings are as follows: # sepsis # concern for gallbladder infection # AMS, secondary to above # acute kidney injury likely ATN # metabolic acidosis # chronic HFrEF 20-25% # recent STEMI s/p PCI with GARETT to prox and mid LAD and OM2 05/07 and 05/09/24 # complete heart block # hyperlipidemia # PAD # Focal moderate stenosis of the right popliteal artery # Focal severe stenosis of the mid left anterior tibial artery -currently patient is on Zosyn continue -follow up on infectious workup including urine blood cultures -nephrology on board, continue bicarb infusion -general surgery on board, keep NPO -resume aspirin Lipitor, hold Effient in anticipation of surgical planning -hold antihypertensives GDMT due to borderline low blood pressure -vascular surgery input noted, no intervention -replace electrolytes per protocol -PTOT documented in this encounter Consult Notes * Maya Luciano MD - 09/17/2024 10:57 AM EDTAssociated Order(s): IP CONSULT TO CARDIOLOGY Images from the original note were not included. [facility] [address] [place] [address] HISTORY & PHYSICAL / CONSULT NOTE Alie Lowe PCP: [facility] [place] Date of Admission: 09/12/2024 Date of Consultation: 09/17/2024 10:58 AM Consult for antiplatelet recommendations SUBJECTIVE History of Present Illness: Alie Lowe is a 63 y.o. female who presented to the ED on 09/13/2024 with c/o AMS. She has a hx of recent CHB and STEMI s/p stenting of pLAD/OM in April, HFrEF,PVD, ETOH use, polysubstance abuse, ICM, HTN, HLD. It was reported that patient's family called EMS due to patient being confused and lethargic. On EMS arrival, she was found cold and mottled from the waist down. In the ED, patient's initial temperature was 95.8 with margie hugger applied. Work up was initiated in the ED, labs showed WBC 33.2, HGB 11.0, sodium 122, potassium 5.3, chloride 97, carbon dioxide 8, creatinine 3.51, BUN 118, albumin 3.1,anion gap 17, magnesium 3.1, troponin 12->13, and procalcitonin 3.48. Lactate 2.3. Imaging showed distended gallbladder with ductal dilation and sludge. A CTA abdominal aorta with run off was alsoobtained which showed atherosclerotic disease throughout, focal moderate stenosis of the R popliteal artery and focal severe stenosis of the mid L anterior tibial artery. Recently, she was admitted 05/07/24 to 05/18/24 after being found with a complete heart block and STEMI. She was urgently taken to the section laborer and is s/p GARETT to pLAD and PCI of OM. ECHO revealed EF of 20-25% on 05/11/24. Nephrology followed for hypovolemic hyponatremia. Neurology was consulted for acute metabolic encephalopathy thought to be multifactorial to alcohol, age, substance abuse and self medication with herbal drugs. She was started on aspirin, Effient, Lipitor, Toprol, valsartan, Farxiga, Aldactone, Diovan. She had LifeVest placed prior to discharge. She followed up with cardiology on06/17/24 and was noted to have taken her LifeVest off due to concerns of it not working. She is being worked up for suspicion of Korsakoff's syndrome. She is scheduled to undergo a CT of the abdomen and pelvis with oral contrast to investigate any potential progression of peridiverticular abscess, and whether procedural intervention is required. She continues to have nausea and diarrhea. Upon interview, she states she feels much better. She denies CP, SOB, or palpitations at this time.No syncope. Previous Medical History: Past Medical History: Diagnosis Date Asthma Asthma Back pain Cervical disc disorder CHB (complete heart block) ([facility]) 05/07/2024 HTN (hypertension) Hx of scabies Low back pain Lumbosacral disc disease Neck pain Osteoarthritis TMJ (temporomandibular joint syndrome) Previous Surgical History: Past Surgical History: Procedure Laterality Date Cardiac Invasive N/A 05/09/2024 Performed by Gilberto Zepeda MD at [facility] Cardiac Invasive-cors N/A 05/07/2024 Performed by Gilberto Zepeda MD at [facility] SECTION SECTION 1980,,, INJECTION MEDIAL BRANCH NERVE BLOCK: left C34 45 56 Left 03/16/2018 Performed by Manav Rosario MD at [facility] INJECTION MEDIAL BRANCH NERVE BLOCK: left c34 45 56 Left 02/12/2018 Performed by Manav Rosario MD at [facility] INJECTION MEDIAL BRANCH NERVE BLOCK: right C34 45 56 Right 09/14/2018 Performed by Manav Rosario MD at [facility] INJECTION MEDIAL BRANCH NERVE BLOCK: right C34 45 56mbb Right 07/23/2018 Performed by Manav Rosario MD at [facility] Insert/replace temporary single lead pacemaker N/A 05/07/2024 Performed by Gilberto Zepeda MD at [facility] Intravascular ultrasound initial vessel N/A 05/07/2024 Performed by Gilberto Zepeda MD at [facility] ORTHOPEDIC SURGERY Percutaneous coronary intervention N/A 05/07/2024 Performed by Gilberto Zepeda MD at [facility] Percutaneous coronary intervention of OM N/A 05/09/2024 Performed by Gilberto Zepeda MD at [facility] RADIO FREQUENCY ABLATION Right C 3/4, 4/5, 5/6 Right 11/15/2019 Performed by Manav Rosario MD at [facility] RADIO FREQUENCY ABLATION: left C34 45 56rfa Left 04/30/2018 Performed by Manav Rosario MD at [facility] RADIOFREQUENCY ABLATION SPINAL: Right C 4/5 5/6 Left 07/08/2022 Performed by Manav Rosario MD at [facility] RADIOFREQUENCY ABLATION SPINAL: right C 4/5 5/6 Right 07/29/2022 Performed by Manav Rosario MD at [facility] Revascularization/drug eluting stent/ left anterior descending N/A 05/07/2024 Performed by Gilberto Zepeda MD at [facility] ROTATOR CUFF REPAIR Left Stent drug-eluting/ left circumflex N/A 05/09/2024 Performed by Gilberto Zepeda MD at [facility] TONSILLECTOMY 1970 Allergies: Allergies Allergen Reactions Sulfa (Sulfonamide Antibiotics) Itching and Rash Hospital Meds: Current Facility-Administered Medications Medication Dose Route Frequency Provider Last Rate Last Admin acetaminophen (TYLENOL EXTRA STRENGTH) tablet 500 mg 500 mg oral Q6H PRN 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, 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 500mg at 09/14/24 0243 atorvastatin (LIPITOR) tablet 80 mg 80 mg oral Nightly Kylie Link MD 80 mg at 09/16/24 2119 busPIRone (BUSPAR) tablet 10 mg 10 mg oral BID Kylie Link MD 10 mg at 09/17/24 1045 calcium gluconate IVPB 1000 mg/50 mL (20 mg/mL premix) 1,000 mg intravenous PRN Lito Pillai PA-C Stopped at 09/15/24 0728 Or calcium gluconate IVPB 2000 mg/100 mL (20 mg/mL premix) 2,000 mg intravenous PRN Lito Pillai PA-C Or calcium gluconate 3,000 mg in sodium chloride 0.9 % 100 mL IVPB 3,000 mg intravenous PRN Lito Pillai PA-C cangrelor (KENGREAL) 50 mg in sodium chloride 0.9 % 250 mL (0.2 mg/mL) infusion 0.75 mcg/kg/min intravenous Continuous Kylie Link MD 10.9 mL/hr at 09/16/242046 0.75 mcg/kg/min at 09/16/242046 dextrose (GLUTOSE) 40 % gel 15 g 15 g oral PRN Abed RamMKIAELA yun-[employer] REP dextrose 5 % (D5W) infusion 100 mL/hr intravenous Continuous PRN 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 [employer]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 dextrose 50 % in water (D50W) 50% solution 25 mL 25 mL intravenous PRN 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, [employer]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 gabapentin (NEURONTIN) capsule 300 mg 300 mg oral TID Kylie Link MD 300 mg at 09/17/24 0539 glucagon HCL injection 1 mg 1 mg intramuscular PRN 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, 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 heparin (porcine) injection 5,000 Units 5,000 Units subcutaneous Q12H KAMILAH Pillai PA-C 5,000 Units at 09/17/24 1046 HYDROmorphone (DILAUDID) injection 0.5 mg 0.5 mg intravenous Q3H PRN Kylie Link MD 0.5 mg at 704 magnesium sulfate IVPB 2000 mg/50 mL in iso-osmotic water (40 mg/mL premix) 2,000 mg intravenous PRN Lito Pillai PA-C Or magnesium sulfate IVPB 4000 mg/100 mL in iso-osmotic water (40 mg/mL premix) 4,000 mg intravenous PRN Lito Pillai PA-C 25 mL/hr at 09/17/24 0830 4,000 mg at 09/17/24 0830 nicotine (NICODERM CQ) 21 mg/24 hr 1 patch 1 patch transdermal Daily Kylie Link MD 1 patch at 09/17/24 1046 ondansetron (PF) (ZOFRAN) injection 4 mg 4 mg intravenous Q4H PRN Abed Ramadan, [employer]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 4 mg at 09/14/24 1704 oxyCODONE (ROXICODONE) immediate release tablet 5 mg 5 mg oral Q4H PRN Kylie Link MD 5 mg at 243 piperacillin-tazobactam (ZOSYN) 3.375 g in sodium chloride 0.9 % 50 mL IVPB W/ADAPTER 3.375 g intravenous Q8H Lele Aguila MD Stopped at 09/17/24 0734 potassium chloride (KLOR-CON M 20) CR tablet 20-50 mEq 20-50 mEq oral PRN Lito Pillai PA-C 30 mEq at 09/15/24 2105 Or potassium chloride (KAYCIEL) 20 mEq/15 mL solution 20-50 mEq 20-50 mEq oral PRN Lito Pillai PA-C potassium chloride IVPB 10 mEq/50 mL in water (0.2 mEq/mL premix) 10 mEq intravenous PRN Lito Pillai PA-C Or potassium chloride IVPB 10 mEq/100 mL in water (0.1 mEq/mL premix) 10 mEq intravenous PRN Lito Pillai PA-C Stopped at 09/15/24 0353 sennosides-docusate sodium (SENOKOT-S) 8.6-50 mg 1 tablet 1 tablet oral Q12H PRN Abed Ramadan, 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 1 tablet at 09/14/24 1021 sodium chloride 0.9 % flush 10 mL 10 mL intravenous PRN Reyes Jones MD 10 mL at 09/16/24 1422 Home Meds: Prior to Admission medications Medication Sig Start Date End Date Taking? Authorizing Provider aspirin 81 mg chewable tablet Chew 1 tablet (81 mg total) and swallow in the morning for 360 days. 06/17/24 06/12/25 Yes Teagan Carrillo PA-C atorvastatin (LIPITOR) 80 mg tablet Take 1 tablet (80 mg total) by mouth nightly. 06/17/24 Yes Teagan Carrillo PA-C busPIRone (BUSPAR) 10 mg tablet Take 1 tablet (10 mg total) by mouth in the morning and 1 tablet (10 mg total) before bedtime. 05/18/24 Yes Domi E Phlipot, 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 dapagliflozin propanediol (FARXIGA) 10 mg tablet Take 1 tablet (10 mg total) by mouth in the morning for 360 days. 06/17/24 06/12/25 Yes Teagan Carrillo PA-C gabapentin (NEURONTIN) 300 mg capsule Take 1 capsule (300 mg total) by mouth in the morning and 1 capsule (300 mg total) at noon and 1 capsule (300 mg total) in the evening and 1 capsule (300 mg total) before bedtime. Patient taking differently: Take 400 mg by mouth in the morning and 400 mg at noon and 400 mg in the evening and 400 mg before bedtime. Yes Not In System Ref Prov metoprolol succinate XL (TOPROL XL) 25 mg 24 hr tablet Take 0.5 tablets (12.5 mg total) by mouth inthe morning. 06/17/24 Yes Teagan Carrillo PA-C prasugreL HCl (EFFIENT) 10 mg tablet Take 1 tablet (10 mg total) by mouth in the morning. 06/17/24 Yes Teagan Carrillo PA-C spironolactone (ALDACTONE) 25 mg tablet Take 1 tablet (25 mg total) by mouth in the morning. 06/17/24Yes Teagan Carrillo PA-C valsartan (DIOVAN) 40 mg tablet Take 1 tablet (40 mg total) by mouth in the morning and 1 tablet (40 mg total) before bedtime. 06/17/24 Yes Teagan Carrillo PA-C DULoxetine (CYMBALTA) 60 mg capsule Take 1 capsule (60 mg total) by mouth in the morning. Patient not taking: Reported on 09/14/2024 05/18/24 Domi E Phlipot, [employer]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 folic acid (FOLVITE) 1 mg tablet Take 1 tablet (1 mg total) by mouth in the morning. 05/18/24 Domi EPhlipot, [employer]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 nicotine polacrilex (NICORETTE) 4 MG gum Chew 1 each (4 mg total) as directed as needed for smokingcessation. As recommended on Nicorette gum label, weeks 1-6 1 piece every 1-2 hours, week 7-9 1 piece every 2-4 hours, weeks 10-12 1 piece every 4-8 hours. Do not use nicotine gum simultaneously withother tobacco product 06/17/24 Teagan Carrillo PA-C sennosides-docusate sodium (SENOKOT-S) 8.6-50 mg Take 2 tablets by mouth 2 (two) times a day as needed for constipation. 05/18/24 Domi E Phlipot, [employer]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 thiamine HCl (VITAMIN B-1) 100 mg tablet Take 1 tablet (100 mg total) by mouth in the morning. 05/18/24 Domi E Phlipot, [employer]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 Social History: TOBACCO: reports that she has been smoking cigarettes. She has never used smokeless tobacco. ETOH: reports current alcohol use. DRUGS: reports no history of drug use. OCCUPATION: Family History: Family History Problem Relation Age of Onset Heart disease Mother Heart disease Father Heart disease Son Review of Systems: Constitutional: there has been no unanticipated weight loss, no change in energy level, sleep pattern, or activity level. Eyes: No visual changes or diplopia, no scleral icterus. ENT: No Headaches, hearing loss or vertigo, no mouth sores or sore throat. Cardiovascular: No chest pain, dyspnea on exertion, palpitations or loss of consciousness, no cough, hemoptysis, pleuritic pain, or phlebitis. Respiratory: No cough or wheezing, no sputum production, no hematemesis. Gastrointestinal:per HPI Genitourinary: No dysuria, trouble voiding, or hematuria Musculoskeletal: No gait disturbance, weakness or joint complaints Integumentary: No rash or pruritis Neurological: No headache, diplopia, change in muscle strength, numbness or tingling, no change in gait, balance, coordination, mood, affect, memory, mentation, behavior Psychiatric: No anxiety, or depression Endocrine: No temperature intolerance, no excessive thirst, fluid intake, or urination, no tremor Hematologic/Lymphatic: No abnormal bruising or bleeding, blood clots or swollen lymph nodes Allergic/Immunologic: No nasal congestion or hives OBJECTIVE LAST LABS: CBC: Results from last 7 days Lab Units 09/17/2443209/16/24 04209/15/24 0516 WBC x10E9/L 10.5 13.8* 20.3* HEMOGLOBIN g/dL 9.5* 9.3* 9.8* HEMATOCRIT % 27.4* 27.4* 28.6* MCV fL 92 91 91 PLATELETS X10E9/L 310 328 329 BMP: Results from last 7 days Lab Units 09/17/24 04309/16/24 0426 09/15/24 1734 09/15/24 1028 09/15/24 0516 SODIUM mmol/L 137 138 -- -- 141 POTASSIUM mmol/L 3.6 4.2 3.8 < > 3.6 CHLORIDE mmol/L 106 107 -- -- 104 CO2 mmol/L 26 28 -- -- 34* BUN mg/dL 5 9 -- -- 26 CREATININE mg/dL 0.47 0.48 -- -- 0.63 CALCIUM mg/dL 7.9* 7.9* -- -- 7.9* PHOSPHORUS mg/dL 2.4 1.5* -- -- 1.4* MAGNESIUM mg/dL 1.6* 1.9 -- -- 2.8* < > = values in this interval not displayed. MAG: Results from last 7 days Lab Units 09/17/2443209/16/24 0426 09/15/24 0516 MAGNESIUM mg/dL 1.6* 1.9 2.8* Lipid Panel: Lab Results Component Value Date CHOL 197 05/08/2024 TRIG 145 05/08/2024 HDL 45 05/08/2024 HDL 55 09/12/2014 CHOLHDLR 09/12/2014 RISK FEMALE RATIO MALE RATIO 1/2 AVERAGE 3.27 3.43 AVERAGE 4.44 4.97 2X 7.05 9.55 3X 11.04 23.39 HgA1C: Lab Results Component Value Date HGBA1C 5.8 (H) 05/08/2024 CV HISTORY: ECHO: Echo limited W/O contrast Result Date: 05/10/2024 Left Ventricle: Left ventricle appears normal in size. Systolic function is severely decreased withan ejection fraction of 20-25%. Right Ventricle: Right ventricular size appears normal. Systolic function is normal. Echo limited W/O contrast Result Date: 05/08/2024 Left Ventricle: Left ventricle appears normal in size. Systolic function is moderately to severely decreased with an ejection fraction of 30-35%. Aortic Valve: There is no regurgitation or stenosis. Mitral Valve: There is [id number] regurgitation. There is no evidence of mitral valve stenosis. Tr icuspid Valve: There is trace regurgitation. There is no evidence of tricuspid valve stenosis. EKG: TELEMETRY: SR PHYSICAL EXAM Admission Weight: Weight: 49.6 kg (109 lb 5.6 oz) I/O last 3 completed shifts: In: 1600 [P.O.:1600] Out: 2700 [Urine:2700] Weight change: 0.697 kg (1 lb 8.6 oz) Wt Readings from Last 3 Encounters: 09/17/24 51.5 kg (113 lb 8.6 oz) 09/12/24 45.8 kg (101 lb) 06/17/24 46.7 kg (103 lb) Vitals: Vitals: 09/16/24 1943 09/16/24 2345 09/17/24 0337 09/17/24 0500 BP: 134/84 119/59 123/60 Pulse: 81 82 84 Resp: 16 14 Temp: 36.9 ??C (98.5 ??F) 36.7 ??C (98 ??F) 36.9 ??C (98.4 ??F) TempSrc: Oral Axillary Oral SpO2: 100% 98% 97% Weight: 51.5 kg (113 lb 8.6 oz) Height: Admit Weight Weight: 49.6 kg (109 lb 5.6 oz) Last 3 Weights Last 3 Weight Readings 09/14/24 1910 09/16/24 0115 09/17/24 0500 Weight: 48.7 kg (107 lb 5.8 oz) 50.8 kg (112 lb) 51.5 kg (113 lb 8.6 oz) Body mass index is 21.45 kg/m??. INTAKE/OUTPUT I/O last 3 completed shifts: In: 1600 [P.O.:1600] Out: 2700 [Urine:2700] Intake/Output Summary (Last 24 hours) at 09/17/2024 1058 Last data filed at 09/17/2024 0143 Gross per 24 hour Intake 900 ml Output 1500 ml Net -600 ml General appearance: Alert oriented and cooperative, in no acute distress Skin: Warm and dry to touch Head: Normocephalic, without obvious abnormality, atraumatic Eyes: Conjunctivae unremarkable, EOMs intact, sclera non icteric Neck: No JVD, no carotid bruit, neck supple, trachea midline Lungs: Clear to ausculation bilaterally, no use of accessory muscles. Heart:: RRR with normal S1 and S2 , no murmurs and no gallops. Abdomen: Soft, non-tender, bowel sounds normal Extremities: No edema Neurologic: Oriented to time, person and place, affect appropriate, no focal/major motor or sensorydefects noted Psychiatric: Appropriate mood, memory and judgment ASSESSMENT Anterior STEMI/CHB 04/2024 - s/p PCI GARETT pLAD 05/07/24, staged PCI GARETT OM2 05/09/24 - on DAPT with effient + ASA Ischemic cardiomyopathy - EF 20-25% TTE 05/10/24 - has lifevest Chronic HFrEF - appears euvolemic Sepsis/diverticulitis with abscess - no surgical intervention at this time PAD with moderate stenosis R popiteal and L tib arteries HTN, controlled HLD ETOH/polystubstance abuse PLAN When ok with primary service, please transition from cangrelor infusion to ASA plus plavix. Can make the change from effient after discussion with attending. Please load with plavix 600 mg on day one followed by plavix 75 mg daily on the following days. Would restart GDMT when BP and kidney function permit and she is tolerating PO meds including farxiga, valsartan, toprol, and spironolactone. Nishi Graham APRN-SHADI This note was completed using a voice pulverizing and sifting operator system. Every effort was made to ensure accuracy. However, inadvertent computerized pulverizing and sifting operator errors may be present. MARCIAL Longo 09/17/24 1216 I, MAYA LUCIANO MD, personally performed the face to face diagnostic evaluation on this patient. My findings are as follows: . Antiplatelet interrupted for planned GI procedure. Given PCI was in April and Effient is pretty potent with ongoing diverticulitis and abscess, would like to switch to Plavix for now. Plan to resume Plavix and stop cangrelor once okay with primary team. Clopidogrel 600 mg to be given immediately after turning off cangrelor drip. Resume goal-directed medical therapy as sepsis improves * Laquita Yo MD - 09/13/2024 1:52 PM EDTAssociated Order(s): IP CONSULT TO VASCULAR SURGERY Images from the original note were not included. Vascular Surgery Consultation Note Reason for Consultation Right popliteal and left anterior tibial artery stenosis noted on CT scan History and Present Illness Alie Lowe is a 63 y.o. White or female with past medical history significant for hypertension, heart failure, coronary artery disease. She was brought in to the hospital by her family for altered mental status and apparently was mottled from the waist down. She had a CTA with run-off which showed patent aorta and iliac arteries, no significant occlusions in the lower extremities. She did have stenosis in the right popliteal artery and left anterior tibial artery. The patient currently denies pain in the feet, no motor/sensory deficits. She denies claudication symptoms. We were asked to evaluate for vascular occlusions. Past Medical History Past Medical History: Diagnosis Date Asthma Asthma Back pain Cervical disc disorder CHB (complete heart block) ([facility]) 05/07/2024 HTN (hypertension) Hx of scabies Low back pain Lumbosacral disc disease Neck pain Osteoarthritis TMJ (temporomandibular joint syndrome) Past Surgical History Past Surgical History: Procedure Laterality Date Cardiac Invasive N/A 05/09/2024 Performed by Gilberto Zepeda MD at [facility] Cardiac Invasive-cors N/A 05/07/2024 Performed by Gilberto Zepeda MD at [facility] SECTION SECTION ,, INJECTION MEDIAL BRANCH NERVE BLOCK: left C34 45 56 Left 03/16/2018 Performed by Manav Rosario MD at [facility] INJECTION MEDIAL BRANCH NERVE BLOCK: left c34 45 56 Left 02/12/2018 Performed by Manav Rosario MD at [facility] INJECTION MEDIAL BRANCH NERVE BLOCK: right C34 45 56 Right 09/14/2018 Performed by Manav Rosario MD at [facility] INJECTION MEDIAL BRANCH NERVE BLOCK: right C34 45 56mbb Right 07/23/2018 Performed by Manav Rosario MD at [facility] Insert/replace temporary single lead pacemaker N/A 05/07/2024 Performed by Gilberto Zepeda MD at [facility] Intravascular ultrasound initial vessel N/A 05/07/2024 Performed by Gilberto Zepeda MD at [facility] ORTHOPEDIC SURGERY Percutaneous coronary intervention N/A 05/07/2024 Performed by Gilberto Zepeda MD at [facility] Percutaneous coronary intervention of OM N/A 05/09/2024 Performed by Gilberto Zepeda MD at [facility] RADIO FREQUENCY ABLATION Right C 3/4, 4/5, 5/6 Right 11/15/2019 Performed by Manav Rosario MD at [facility] RADIO FREQUENCY ABLATION: left C34 45 56rfa Left 04/30/2018 Performed by Manav Rosario MD at [facility] RADIOFREQUENCY ABLATION SPINAL: Right C 4/5 5/6 Left 07/08/2022 Performed by Manav Rosario MD at [facility] RADIOFREQUENCY ABLATION SPINAL: right C 4/5 5/6 Right 07/29/2022 Performed by Manav Rosario MD at [facility] Revascularization/drug eluting stent/ left anterior descending N/A 05/07/2024 Performed by Gilberto Zepeda MD at [facility] ROTATOR CUFF REPAIR Left Stent drug-eluting/ left circumflex N/A 05/09/2024 Performed by Gilberto Zepeda MD at [facility] TONSILLECTOMY 1970 Allergies Allergies Allergen Reactions Sulfa (Sulfonamide Antibiotics) Itching and Rash Current Medications heparin (porcine), 5,000 Units, subcutaneous, Q12H KAMILAH piperacillin-tazobactam (ZOSYN) IV, 3.375 g, intravenous, Q12H thiamine (B-1) 100 mg in sodium chloride 0.9 % 50 mL IVPB, 100 mg, intravenous, Daily Current Infusions dextrose 5 % in water, 100 mL/hr dextrose 5 % in water 1,000 mL with sodium bicarbonate 8.4 % (1 mEq/mL) 150 mEq infusion, 200 mL/hr, Last Rate: 150 mL/hr (09/13/24 0821) Home Medications Medications Prior to Admission Medication Sig Dispense Refill Last Dose/Taking aspirin 81 mg chewable tablet Chew 1 tablet (81 mg total) and swallow in the morning for 360 days. 90 tablet 3 atorvastatin (LIPITOR) 80 mg tablet Take 1 tablet (80 mg total) by mouth nightly. 90 tablet 3 busPIRone (BUSPAR) 10 mg tablet Take 1 tablet (10 mg total) by mouth in the morning and 1 tablet (10 mg total) before bedtime. dapagliflozin propanediol (FARXIGA) 10 mg tablet Take 1 tablet (10 mg total) by mouth in the morning for 360 days. 90 tablet 3 DULoxetine (CYMBALTA) 60 mg capsule Take 1 capsule (60 mg total) by mouth in the morning. folic acid (FOLVITE) 1 mg tablet Take 1 tablet (1 mg total) by mouth in the morning. gabapentin (NEURONTIN) 300 mg capsule Take 1 capsule (300 mg total) by mouth in the morning and 1 capsule (300 mg total) at noon and 1 capsule (300 mg total) in the evening and 1 capsule (300 mg total) before bedtime. metoprolol succinate XL (TOPROL XL) 25 mg 24 hr tablet Take 0.5 tablets (12.5 mg total) by mouth inthe morning. 45 tablet 3 nicotine polacrilex (NICORETTE) 4 MG gum Chew 1 each (4 mg total) as directed as needed for smokingcessation. As recommended on Nicorette gum label, weeks 1-6 1 piece every 1-2 hours, week 7-9 1 piece every 2-4 hours, weeks 10-12 1 piece every 4-8 hours. Do not use nicotine gum simultaneously withother tobacco product 100 each 3 prasugreL HCl (EFFIENT) 10 mg tablet Take 1 tablet (10 mg total) by mouth in the morning. 90 tablet3 sennosides-docusate sodium (SENOKOT-S) 8.6-50 mg Take 2 tablets by mouth 2 (two) times a day as needed for constipation. spironolactone (ALDACTONE) 25 mg tablet Take 1 tablet (25 mg total) by mouth in the morning. 90 tablet 3 thiamine HCl (VITAMIN B-1) 100 mg tablet Take 1 tablet (100 mg total) by mouth in the morning. valsartan (DIOVAN) 40 mg tablet Take 1 tablet (40 mg total) by mouth in the morning and 1 tablet (40 mg total) before bedtime. 90 tablet 3 Social History Social History Socioeconomic History Marital status: Single Spouse name: Not on file Number of children: Not on file Years of education: Not on file Highest education level: Not on file Occupational History Not on file Tobacco Use Smoking status: Every Day Current packs/day: 1.00 Types: Cigarettes Smokeless tobacco: Never Tobacco comments: Patient states she drinks a lot. Vaping Use Vaping status: Never Used Substance and Sexual Activity Alcohol use: Yes Drug use: No Sexual activity: Defer Other Topics Concern Not on file Social History Narrative Not on file Social Drivers of Health Financial Resource Strain: Not on file Food Insecurity: Patient Unable To Answer (09/12/2024) Hunger Screening Food Insecurity - Worry: Patient unable to answer Food Insecurity - Inability: Patient unable to answer Transportation Needs: Patient Unable To Answer (09/12/2024) PRAPARE - Transportation Lack of Transportation (Medical): Patient unable to answer Lack of Transportation (Non-Medical): Patient unable to answer Physical Activity: Not on file Stress: Not on file Social Connections: Not on file Interpersonal Safety: Patient Unable To Answer (09/12/2024) Humiliation, Afraid, Rape, and Kick questionnaire Fear of Current or Ex-Partner: Patient unable to answer Emotionally Abused: Patient unable to answer Physically Abused: Patient unable to answer Sexually Abused: Patient unable to answer Housing Instability: Patient Unable To Answer (09/12/2024) Housing Instability Housing Instability: Patient unable to answer Primary Care Physician [facility] Family Histroy Family History Problem Relation Age of Onset Heart disease Mother Heart disease Father Heart disease Son Review Of Systems Review of Systems Unable to perform ROS: Mental status change Objective Vital signs: Vitals: 09/13/24 1000 09/13/24 1100 09/13/24 1200 09/13/24 1300 BP: 93/42 (!) 103/39 94/46 107/41 Pulse: 87 91 90 88 Resp: 16 13 16 18 Temp: TempSrc: SpO2: 98% 99% 99% 100% Weight: Height: Temperature Range Last 24 Hours : Temp: 36.6 ??C (97.9 ??F) Temp Av.2 ??C (97.1 ??F) Min: 35.4??C (95.8 ??F) Max: 36.7 ??C (98.1 ??F) Admit Weight: 49.6 kg (109 lb 5.6 oz) Body mass index is 19.54 kg/m??. Last Weights: Wt Readings from Last 3 Encounters: 09/13/24 46.9 kg (103 lb 6.3 oz) 09/12/24 45.8 kg (101 lb) 06/17/24 46.7 kg (103 lb) I/O's: Intake/Output Summary (Last 24 hours) at 09/13/2024 1352 Last data filed at 09/13/2024 0909 Gross per 24 hour Intake 1166.07 ml Output 1340 ml Net -173.93 ml Physical Exam Physical Exam Vitals and nursing note reviewed. Constitutional: General: She is not in acute distress. HENT: Head: Normocephalic and atraumatic. Nose: Nose normal. Mouth/Throat: Mouth: Mucous membranes are moist. Pharynx: Oropharynx is clear. Eyes: Conjunctiva/sclera: Conjunctivae normal. Cardiovascular: Rate and Rhythm: Normal rate and regular rhythm. Pulmonary: Effort: Pulmonary effort is normal. Abdominal: General: Abdomen is flat. Palpations: Abdomen is soft. Musculoskeletal: Cervical back: Normal range of motion. Right lower leg: No edema. Left lower leg: No edema. Skin: General: Skin is warm and dry. Capillary Refill: Capillary refill takes less than 2 seconds. Neurological: Mental Status: She is disoriented. Bilateral calf muscles are soft, non-tender to palpation Vascular Exam Vascular Exam B DP/PT pulses are palpable Labs Results from last 7 days Lab Units 09/13/24 0411 09/12/24 1554 WBC x10E9/L 31.5* 33.2* HEMOGLOBIN g/dL 12.8 11.0* HEMATOCRIT % 37.0 32.6* PLATELETS X10E9/L 342 422 Results from last 7 days Lab Units 09/13/24 0855 09/13/24 0411 09/12/24 2230 09/12/24 1554 SODIUM mmol/L 132* 130* 127* 122* POTASSIUM mmol/L -- 4.3 4.9 5.3* CO2 mmol/L -- 12* 10* 8* BUN mg/dL -- 105* 107* 118* CREATININE mg/dL -- 2.30* 2.69* 3.51* GLUCOSE mg/dL -- 188* 127* 185* Cultures Microbiology Results (last 21 days) Procedure Component Value - Date/Time Urine Culture Urine, Clean Catch Midstream [[id number]] Collected: 09/12/24 1636 Lab Status: In process Specimen: Urine, Clean Catch Midstream Updated: 09/12/242157 Blood culture [[id number]] Collected: 09/12/24 1554 Lab Status: Preliminary result Specimen: Blood, Venous Updated: 09/13/24 1101 CULTURE RESULTS NO GROWTH <24 HRS Narrative: Suboptimal volume of blood collected, Results may be affected. Only aerobic bottle received, suboptimal volume of blood collected, results may be affected. Blood culture [[id number]] Collected: 09/12/24 1554 Lab Status: Preliminary result Specimen: Blood, Venous Updated: 09/13/24 1101 CULTURE RESULTS NO GROWTH <24 HRS Narrative: Suboptimal volume of blood collected, Results may be affected. Recent Studies Vas art doppler lwr bilat mult lev/PVR Result Date: 09/13/2024 Right: Essentially normal PVR waveform contour at the ankle level. PT MUKUL is 1.10; DP MUKUL is 1.09. Multiphasic with diastolic flow reversal common femoral, PT and DP, CW Doppler waveforms. Left: Essentially normal PVR waveform contour at the ankle level. PT MUKUL is 1.13; DP MUKUL is 1.13. Multiphasic with diastolic flow reversal common femoral, PT and DP, CW Doppler waveforms. General: In- patient, beside examination. Recommendations: Any questions prior to finalization, please call the reading physician during normal business hours at the phone number beside their name. Fluoroscopy swallow motility function Result Date: 09/13/2024 STUDY: Video fluoroscopic swallow study CLINICAL HISTORY: Oral pharyngeal dysphagia, difficulty swallowing COMPARISON: None. FINDINGS: Video fluoroscopic swallow study was performed in conjunction with members of speech pathology. Barium contrast materials of multiple consistencies were administered. Fluoroscopic reference air kerma was 4.3 mGy. Fluoroscopy time: 40 seconds. No aspiration or penetration visualized across all tested consistencies. These included thin liquids, applesauce, and fruit. IMPRESSION: No aspiration or penetration visualized across all tested consistencies. Please see speech pathologist report for additional details and recommendations. Finalizedby Rory Harris MD on 09/13/2024 12:[address] angiogram abdominal aorta with runoff Result Date: 09/12/2024 EXAM: CT CTA ABD AORTA W RUNOFF CLINICAL INFORMATION: No pulses in either foot per ED. TECHNIQUE: Following the uneventful intravenous administration of 100 mL Omnipaque 350, a CT angiogram of the bilateral lower extremity runoff was obtained. Coronal, sagittal, and volume rendered 3-D MIP reformatted images were obtained from the axial CT data. Automated exposure control was utilized. COMPARISON: CTA performed earlier on 09/12/2024 FINDINGS: The upper abdomen is excluded. There are soft and calcified plaque throughout a normal diameter abdominal aorta and iliac arteries without evidence for dissection or aneurysm. The origins of the celiac and superior mesenteric arteries are not included. The origins of the renal arteries are normal and widely patent. There is no evidence for stenosis. There are mild calcifications in the right common femoral artery without evidence for stenosis. The right superficial femoral artery is well opacified. There is focal moderate stenosis of the poplitealartery. The tibial peroneal trunk is unremarkable. The peroneal and posterior tibial arteries terminate in the mid calf. The anterior tibial artery extends into the ankle and foot. The left common femoral artery is unremarkable. The left superficial femoral artery is well opacified. There are mild calcifications of the popliteal artery without significant stenosis. There is a focal calcification of the mid anterior tibial artery with focal severe stenosis. The peroneal and posterior tibial arteries terminate in the mid calf. The anterior tibial artery extends into the ankle and foot. There are bilateral superficial cysts of the dorsal knees, suspected popliteal cyst. The partially visualized liver is unremarkable. A distended gallbladder is present. The partially visualized kidneys are unremarkable. The pancreas is mostly not included. The spleen is not included. The adrenals are not included. There are no dilated loops of bowel or evidence of pneumatosis or free air. There is no freefluid. IMPRESSION: 1. Please note, the upper abdomen and proximal abdominal aorta are not included on this examination. 2. Atherosclerotic disease throughout a normal diameter abdominal aorta withoutevidence for acute dissection, aneurysm, or stenosis. 3. The posterior tibial and peroneal arteriesterminate in the mid calf. There is single vessel anterior tibial artery inflow into the bilateral a nkles and feet. 3. Focal moderate stenosis of the right popliteal artery. 4. Focal severe stenosis of the mid left anterior tibial artery. 5. Bilateral popliteal Matias's cyst. 6. Please see separate dictation of the dedicated CTA of the abdomen and pelvis. All CT scans at this facility use dose modulation, iterative reconstruction, and/or weight based dosing when appropriate to reduce radiation dose to as low as reasonably achievable. Finalized by Paras Nixon MD on 54:52 PM Ultrasound abdomen limited Result Date: 09/12/2024 GALLBLADDER ULTRASOUND COMPARISON: CT abdomen pelvis 09/12/2024 HISTORY: Distended gallbladder, abnormal CT. Technique: Gallbladder ultrasound performed. Evaluation is compromised as patient was unable to roll for left lateral decubitus positioning due to condition. IMPRESSION: 1. Distended gallbladder. Small amount of gallbladder sludge. No gallbladder wall thickening or pericholecystic fluid. Technologist reports a negative sonographic Mcleod's sign. 2. Biliary ductal dilatation. Common duct measures 8 mm in diameter. Correlate clinically for laboratory values for biliary obstruction. Consider MRCP. Finalized by Leobardo Pascal MD on 09/12/2024 4:[address] angiogram chest Result Date: 09/12/2024 CT CTA CHEST HISTORY: dissection, transient alteration of awareness COMPARISON: None TECHNIQUE: Contiguous axial images are obtained of the Chest with 100 mL of Omnipaque 350 IV contrast. Coronal andsagittal reconstructions were performed and reviewed. Sagittal and coronal reformatted images with 3-D Maximum intensity projection reconstructions constructed under concurrent physician supervision o n a separate workstation. Automatic exposure control was utilized. All CT scans at this facility use dose modulation, iterative reconstruction, and/or weight based dosing when appropriate to reduce radiation dose to as low as reasonably achievable. FINDINGS: LOWER NECK: Within normal limits. MEDIASTINUM: The visualized thyroid is unremarkable. No mediastinal lymphadenopathy. No hilar lymphadenopathy. AXILLA: No axillary lymphadenopathy. HEART: Heart size is within normal limits. No significant pericardial effusion. Moderate coronary artery calcification/stenting. Nonaneurysmal thoracic aorta with mild atherosclerotic calcification. PULMONARY ARTERIES: Main pulmonary artery size is within normal limits. No filling defects of the main pulmonary arteries or segmental branches to suggest emboli. ABDOMEN: Same day CTA abdomen and pelvis dictated separately. SOFT TISSUES: The soft tissues areunremarkable. BONES: No acute abnormality. LUNGS: The trachea and proximal airways are unremarkable. The lungs are unremarkable. PLEURA: No pleural effusions or pneumothorax. IMPRESSION: * No acute thoracic abnormality. Approved by Resident Mahnaz Eric DO on 09/12/2024 3:49 PM IMarkos MD have personally reviewed the image(s) and agree with and/or edited the report Workstation:[id number] by Markos Bañuelos MD on 09/12/2024 4:[address] angiogram abdomen and pelvis Result Date: 09/12/2024 CT CTA ABD AND PELVIS CLINICAL INFORMATION: dissection COMPARISON: 02/28/2022. PROCEDURE: Routine CTAngiography of the abdomen and pelvis obtained after the uncomplicated intravenous administration of contrast. Sagittal and coronal reformatted images with 3-D Maximum intensity projection reconstructions constructed under concurrent physician supervision on a independent workstation for evaluationof vascular abnormalities. All CT scans at this facility use dose modulation, iterative reconstruction, and/or weight based dosing when appropriate to reduce radiation dose to as low as reasonably achievable. FINDINGS: Lung bases demonstrate no acute findings. The liver is unremarkable. Fluid-filled stomach. Large hydropic gallbladder without marked wall thickening. Prominent common bile duct measuring 8 mm. Arterial enhancement pattern in the spleen. Pancreas is normal. Adrenal glands are unchanged, small benign nodule on the left measuring about 8 mm. Minimal scarring in the kidneys with low- attenuation areas that are too small to characterize. Some patchy cortical areas of low attenuation present. The bladder is normal. Constipation. No bowel obstruction. No dissection. Atheroscleroticcalcifications in the aorta. Calcified and noncalcified atherosclerotic disease. No enlarged lymph nodes. Retroaortic left renal vein. Degenerative changes are present. 3-D reformatted images confirmthe source data findings. IMPRESSION: * No evidence of aortic aneurysm or dissection. Severe atherosclerotic changes. * Patchy enhancement in the kidneys, urinalysis is recommended to assess for pyelonephritis. * Hydropic gallbladder and prominent extrahepatic biliary tree, correlate with right upper quadrant ultrasound biliary laboratory data. Surgical consultation could be obtained as indicated. * Please see above for further details. Finalized by Mao Kauffman MD on 09/12/2024 3:[address] brain without contrast Result Date: 09/12/2024 CT BRAIN WO CONT CLINICAL INFORMATION: ams COMPARISON: None. PROCEDURE: Routine CT Head obtained without contrast. All CT scans at this facility use dose modulation, iterative reconstruction, and/or weight based dosing when appropriate to reduce radiation dose to as low as reasonably achievable. FIN DINGS: No acute intracranial hemorrhage. No mass effect or midline shift. No extra axial fluid collection. No hydrocephalus. Alexandre-white differentiation is preserved. No depressed calvarial fracture. IMPRESSION: * No acute intracranial findings by CT. Finalized by Mao Kauffman MD on 09/12/2024 3:47 PM Assessment Alie Lowe is a 63 y.o. female Plan I reviewed the patient's CTA aortogram with run-off which shows no occlusions but several areas of stenosis. She has palpable pulses bilaterally and the feet are warm and well-perfused. She did have arterial testing which showed normal waveforms bilaterally and normal MUKUL. I do not think she has significant vascular disease. I did not see evidence of compartment syndrome. No issues from a vascular standpoint. Our team will sign-off at this point, please call with questions! * Lele Aguila MD - 09/13/2024 1:30 PM EDTAssociated Order(s): IP CONSULT TO NEPHROLOGY Images from the original note were not included. NEPHROLOGY CONSULT NOTE Date of Admission: 09/12/2024 9:16 PM Reason for Consult: Acute kidney injury Referring Physician: Cinthya Simeon APRN-SHADI PCP: ROSITA Lance Chief Complaint: Confusion Assessment 1. Acute kidney injury attributed to acute tubular necrosis versus prerenal fluctuations. Renal function improving nicely with administration of isotonic IV fluids. Renal workup is pending. No indication for dialysis at this time. 2. Abdominal pain with evidence of sepsis likely intra-abdominal source. Will put her on Zosyn empirically pending identification of infectious etiology. Concern for gallbladder being affected, general surgery service is on board. 3. Severe metabolic acidosis in the setting of sepsis and underlying acute kidney injury: Will correct with alkaline IV infusion. 4. CHF: Presently compensated. We will have to be careful and avoid volume overload. 5. Volume status: I suspect she is on the volume depleted side. Given intra- abdominal sepsis she will need IV fluid support. Continue alkaline IV infusion at 150 mL/hour. Plan 1. Continue bicarb drip at 1:50 a.m. mL/hour 2. No indication for dialysis at this time 3. Send off renal serology workup History of Present Illness Alie Lowe is a 63 y.o. female who we have been asked to evaluate for management of acute kidney injury. She has known history of coronary artery disease status post stents, hypertension presenting with complaints of confusion/weakness. Upon exam she has significant abdominal tenderness right lower quadrant and right upper quadrant. CT of the abdomen and pelvis with contrast showed diffuse atherosclerotic disease and a distended gallbladder with sludge and biliary ductal dilatation. Nephrology service has been consulted now to help manage acute kidney injury with creatinine trending as follows: 0.4 mg/dL (05/18/2024) --> 3.5 (09/12/2024) --> 2.3 mg/dL (09/13/2024). She wascurrently nonoliguric. She was evidence of severe metabolic acidosis with bicarb down to 8 at the time of admission and anion gap was 17. Blood pressures are in an acceptable range and respiratory strange she is doing okay. Problem List Acute kidney injury attributed to acute tubular necrosis versus prerenal fluctuations. Creatinine baseline 0.4 mg/dL. Renal workup is pending. Sepsis likely abdominal source Metabolic acidosis Hypertension CAD status post LAD and OM2 stents in April 2024 H/o Complete heart block in April 2024 does not have pacemaker. Active smoker H/o alcohol abuse History of scabies TMJ dysfunction Chronic neck pain/Multiple cervical spine steroid injections and radiofrequency ablation. Ischemic cardiomyopathy/2D echo April of 2024 shows EF 20-25%, normal LV thickness and normal rightventricular systolic function. Trace to mild MR and trace TR. Past Medical History Past Medical History: Diagnosis Date Asthma Asthma Back pain Cervical disc disorder CHB (complete heart block) (CMS-HCC) 05/07/2024 HTN (hypertension) Hx of scabies Low back pain Lumbosacral disc disease Neck pain Osteoarthritis TMJ (temporomandibular joint syndrome) Past Surgical History Past Surgical History: Procedure Laterality Date Cardiac Invasive N/A 05/09/2024 Performed by Gilberto Zepeda MD at [facility] Cardiac Invasive-cors N/A 05/07/2024 Performed by Gilberto Zepeda MD at [facility] SECTION SECTION 1980,,, INJECTION MEDIAL BRANCH NERVE BLOCK: left C34 45 56 Left 03/16/2018 Performed by Manav Rosario MD at [facility] INJECTION MEDIAL BRANCH NERVE BLOCK: left c34 45 56 Left 02/12/2018 Performed by Manav Rosario MD at [facility] INJECTION MEDIAL BRANCH NERVE BLOCK: right C34 45 56 Right 09/14/2018 Performed by Manav Rosario MD at [facility] INJECTION MEDIAL BRANCH NERVE BLOCK: right C34 45 56mbb Right 07/23/2018 Performed by Manav Rosario MD at [facility] Insert/replace temporary single lead pacemaker N/A 05/07/2024 Performed by Gilberto Zepeda MD at [facility] Intravascular ultrasound initial vessel N/A 05/07/2024 Performed by Gilberto Zepeda MD at [facility] ORTHOPEDIC SURGERY Percutaneous coronary intervention N/A 05/07/2024 Performed by Giblerto Zepeda MD at [facility] Percutaneous coronary intervention of OM N/A 05/09/2024 Performed by Gilberto Zepeda MD at [facility] RADIO FREQUENCY ABLATION Right C 3/4, 4/5, 5/6 Right 11/15/2019 Performed by Manav Rosario MD at [facility] RADIO FREQUENCY ABLATION: left C34 45 56rfa Left 04/30/2018 Performed by Manav Rosario MD at [facility] RADIOFREQUENCY ABLATION SPINAL: Right C 4/5 5/6 Left 07/08/2022 Performed by Manav Rosario MD at [facility] RADIOFREQUENCY ABLATION SPINAL: right C 4/5 5/6 Right 07/29/2022 Performed by Manav Rosario MD at [facility] Revascularization/drug eluting stent/ left anterior descending N/A 05/07/2024 Performed by Gilberto Zepeda MD at [facility] ROTATOR CUFF REPAIR Left Stent drug-eluting/ left circumflex N/A 05/09/2024 Performed by Gilberto Zepeda MD at [facility] TONSILLECTOMY 1970 Allergies: Allergies Allergen Reactions Sulfa (Sulfonamide Antibiotics) Itching and Rash Home Meds: Medications Prior to Admission Medication Sig Dispense Refill Last Dose/Taking aspirin 81 mg chewable tablet Chew 1 tablet (81 mg total) and swallow in the morning for 360 days. 90 tablet 3 atorvastatin (LIPITOR) 80 mg tablet Take 1 tablet (80 mg total) by mouth nightly. 90 tablet 3 busPIRone (BUSPAR) 10 mg tablet Take 1 tablet (10 mg total) by mouth in the morning and 1 tablet (10 mg total) before bedtime. dapagliflozin propanediol (FARXIGA) 10 mg tablet Take 1 tablet (10 mg total) by mouth in the morning for 360 days. 90 tablet 3 DULoxetine (CYMBALTA) 60 mg capsule Take 1 capsule (60 mg total) by mouth in the morning. folic acid (FOLVITE) 1 mg tablet Take 1 tablet (1 mg total) by mouth in the morning. gabapentin (NEURONTIN) 300 mg capsule Take 1 capsule (300 mg total) by mouth in the morning and 1 capsule (300 mg total) at noon and 1 capsule (300 mg total) in the evening and 1 capsule (300 mg total) before bedtime. metoprolol succinate XL (TOPROL XL) 25 mg 24 hr tablet Take 0.5 tablets (12.5 mg total) by mouth inthe morning. 45 tablet 3 nicotine polacrilex (NICORETTE) 4 MG gum Chew 1 each (4 mg total) as directed as needed for smokingcessation. As recommended on Nicorette gum label, weeks 1-6 1 piece every 1-2 hours, week 7-9 1 piece every 2-4 hours, weeks 10-12 1 piece every 4-8 hours. Do not use nicotine gum simultaneously withother tobacco product 100 each 3 prasugreL HCl (EFFIENT) 10 mg tablet Take 1 tablet (10 mg total) by mouth in the morning. 90 tablet3 sennosides-docusate sodium (SENOKOT-S) 8.6-50 mg Take 2 tablets by mouth 2 (two) times a day as needed for constipation. spironolactone (ALDACTONE) 25 mg tablet Take 1 tablet (25 mg total) by mouth in the morning. 90 tablet 3 thiamine HCl (VITAMIN B-1) 100 mg tablet Take 1 tablet (100 mg total) by mouth in the morning. valsartan (DIOVAN) 40 mg tablet Take 1 tablet (40 mg total) by mouth in the morning and 1 tablet (40 mg total) before bedtime. 90 tablet 3 Social History: Social History Socioeconomic History Marital status: Single Spouse name: Not on file Number of children: Not on file Years of education: Not on file Highest education level: Not on file Occupational History Not on file Tobacco Use Smoking status: Every Day Current packs/day: 1.00 Types: Cigarettes Smokeless tobacco: Never Tobacco comments: Patient states she drinks a lot. Vaping Use Vaping status: Never Used Substance and Sexual Activity Alcohol use: Yes Drug use: No Sexual activity: Defer Other Topics Concern Not on file Social History Narrative Not on file Social Drivers of Health Financial Resource Strain: Not on file Food Insecurity: Patient Unable To Answer (09/12/2024) Hunger Screening Food Insecurity - Worry: Patient unable to answer Food Insecurity - Inability: Patient unable to answer Transportation Needs: Patient Unable To Answer (09/12/2024) PRAPARE - Transportation Lack of Transportation (Medical): Patient unable to answer Lack of Transportation (Non-Medical): Patient unable to answer Physical Activity: Not on file Stress: Not on file Social Connections: Not on file Interpersonal Safety: Patient Unable To Answer (09/12/2024) Humiliation, Afraid, Rape, and Kick questionnaire Fear of Current or Ex-Partner: Patient unable to answer Emotionally Abused: Patient unable to answer Physically Abused: Patient unable to answer Sexually Abused: Patient unable to answer Housing Instability: Patient Unable To Answer (09/12/2024) Housing Instability Housing Instability: Patient unable to answer Family History: Family History Problem Relation Age of Onset Heart disease Mother Heart disease Father Heart disease Son Review of Systems Constitutional: Negative for fever, chills and fatigue HENT: Negative Eyes: Negative Respiratory: Negative for cough and shortness of breath. Cardiovascular: Negative for chest pain and palpitations. Gastrointestinal: Negative for nausea, vomiting, abdominal pain and diarrhea. Endocrine: Negative. Genitourinary: Negative for dysuria, urgency, frequency, hematuria, flank pain, decreased urine volume and difficulty urinating. Musculoskeletal: Negative for myalgias, joint swelling and arthritis. Skin: Negative for rash. Allergy/immunology: Negative. Neurological: Negative for lightheadedness. Hematological: Negative. Psychiatric/Behavioral: Negative. Extremities: No edema Physical Exam Respiratory Source: O2 Device: None (Room air) Admission Weight: Weight: 49.6 kg (109 lb 5.6 oz) Wt Readings from Last 3 Encounters: 09/13/24 46.9 kg (103 lb 6.3 oz) 09/12/24 45.8 kg (101 lb) 06/17/24 46.7 kg (103 lb) I/O last 3 completed shifts: In: 1166.1 [P.O.:90; I.V.:977.5; IV Piggyback:98.6] Out: 790 [Urine:790] Vital Signs: Blood pressure 112/45, pulse 93, temperature 36.6 ??C (97.9 ??F), temperature source Oral, resp. rate 24, height 154.9 cm (5' 1 ), weight 46.9 kg (103 lb 6.3 oz), SpO2 98%. General: Alert, oriented x 3 and in mild abdominal distress Psychiatric: Has a normal mood and affect. HEENT: Head normocephalic. Eyes: Conjunctivae and EOM are normal. Pupils are equal, round and reactive to light. Cardiovascular: Normal rate, regular rhythm and normal heart sounds. No JVD. Pulmonary/Chest: Air entry bilaterally equal. No wheezes or rales. Abdominal: Soft, tender with deep palpation right upper quadrant and right lower quadrant. Musculoskeletal: Normal range of motion. No tenderness. Neurological: No obvious deficits. Skin: No rash noted. Extremities: No edema Laboratory Studies Results from last 7 days Lab Units 09/13/24 0855 09/13/24 0411 09/12/24 2230 09/12/24 1554 SODIUM mmol/L 132* 130* 127* 122* POTASSIUM mmol/L -- 4.3 4.9 5.3* CHLORIDE mmol/L -- 103 102 97* CO2 mmol/L -- 12* 10* 8* BUN mg/dL -- 105* 107* 118* CREATININE mg/dL -- 2.30* 2.69* 3.51* CALCIUM mg/dL -- 7.2* 7.5* 7.1* MAGNESIUM mg/dL -- 3.1* -- 3.1* Results from last 7 days Lab Units 09/13/24 0411 09/12/24 1554 WBC x10E9/L 31.5* 33.2* HEMOGLOBIN g/dL 12.8 11.0* HEMATOCRIT % 37.0 32.6* PLATELETS X10E9/L 342 422 Results from last 7 days Lab Units 09/13/24 0411 09/12/24 1554 MAGNESIUM mg/dL 3.1* 3.1* Lab Results Component Value Date CALCIUM 7.2 (L) 09/13/2024 Lab Results Component Value Date IRON 30 (L) 04/06/2024 TIBC 358 04/06/2024 FERRITIN 17 04/06/2024 Thank you for the consultation and involving me in the patient's care. Please contact me at [phone] (Office) or [phone] (Answering service) with any questions. Please feel free to contact me through [employer] Secure chat during the daytime hours, if no response after 5 minutes then call the answering service. Lele Aguila MD [facility] This note was created with the assistance of a speech-recognition program. Although the intention is to generate a document that actually reflects the content of the visit, no guarantees can be provided that every mistake has been identified and corrected by editing. * Leobardo Brwoer MD - 09/13/2024 1:16 PM EDT GENERAL SURGERY CONSULTATION Name: Alie Lowe Acct: [id number] Room:[facility]/ Admit Date: 09/12/2024 PCP: ROSITA Lance Reason for general surgery consultation: distended gallbladder, sludge found on ultrasound History Obtained From: medical record and nursing staff HISTORY OF PRESENT ILLNESS: Alie Lowe is a 63 y.o. female admitted with altered mental status. Patient was found Byfamily members to be confused and lethargic. Cold and mottled from waist down. Patient with a past medical history that includes hypertension, chronic systolic heart failure, complete heart block, coronary artery disease, STEMI, ultrasound of abdomen showed distended gallbladder with small amount of sludge. No gallbladder wall thickening noted. Biliary duct dilation noted. CTA consistent with arthrosclerotic disease without evidence of acute dissection or aneurysm. Lab value showed leukocytosis. Normal liver function tests. General surgery consultation was initiated for further surgical management Past Medical History: Past Medical History: Diagnosis Date Asthma Asthma Back pain Cervical disc disorder CHB (complete heart block) (CMS-HCC) 05/07/2024 HTN (hypertension) Hx of scabies Low back pain Lumbosacral disc disease Neck pain Osteoarthritis TMJ (temporomandibular joint syndrome) Past Surgical History: Past Surgical History: Procedure Laterality Date Cardiac Invasive N/A 05/09/2024 Performed by Gilberto Zepeda MD at [facility] Cardiac Invasive-cors N/A 05/07/2024 Performed by Gilberto Zepeda MD at [facility] SECTION SECTION 1980,,, INJECTION MEDIAL BRANCH NERVE BLOCK: left C34 45 56 Left 03/16/2018 Performed by Manav Rosario MD at [facility] INJECTION MEDIAL BRANCH NERVE BLOCK: left c34 45 56 Left 02/12/2018 Performed by Manav Rosario MD at [facility] INJECTION MEDIAL BRANCH NERVE BLOCK: right C34 45 56 Right 09/14/2018 Performed by Manav Rosario MD at [facility] INJECTION MEDIAL BRANCH NERVE BLOCK: right C34 45 56mbb Right 07/23/2018 Performed by Manav Rosario MD at [facility] Insert/replace temporary single lead pacemaker N/A 05/07/2024 Performed by Gilberto Zepeda MD at [facility] Intravascular ultrasound initial vessel N/A 05/07/2024 Performed by Gilberto Zepeda MD at [facility] ORTHOPEDIC SURGERY Percutaneous coronary intervention N/A 05/07/2024 Performed by Gilberto Zepeda MD at [facility] Percutaneous coronary intervention of OM N/A 05/09/2024 Performed by Gilberto Zpeeda MD at [facility] RADIO FREQUENCY ABLATION Right C 3/4, 4/5, 5/6 Right 11/15/2019 Performed by Maanv Rosario MD at [facility] RADIO FREQUENCY ABLATION: left C34 45 56rfa Left 04/30/2018 Performed by Manav Rosario MD at [facility] RADIOFREQUENCY ABLATION SPINAL: Right C 4/5 5/6 Left 07/08/2022 Performed by Manav Rosario MD at [facility] RADIOFREQUENCY ABLATION SPINAL: right C 4/5 5/6 Right 07/29/2022 Performed by Manav Rosario MD at [facility] Revascularization/drug eluting stent/ left anterior descending N/A 05/07/2024 Performed by Gilberto Zepeda MD at [facility] ROTATOR CUFF REPAIR Left Stent drug-eluting/ left circumflex N/A 05/09/2024 Performed by Gilberto Zepeda MD at [facility] TONSILLECTOMY 1970 Medications Prior to Admission: Medications Prior to Admission Medication Sig Dispense Refill Last Dose/Taking aspirin 81 mg chewable tablet Chew 1 tablet (81 mg total) and swallow in the morning for 360 days. 90 tablet 3 atorvastatin (LIPITOR) 80 mg tablet Take 1 tablet (80 mg total) by mouth nightly. 90 tablet 3 busPIRone (BUSPAR) 10 mg tablet Take 1 tablet (10 mg total) by mouth in the morning and 1 tablet (10 mg total) before bedtime. dapagliflozin propanediol (FARXIGA) 10 mg tablet Take 1 tablet (10 mg total) by mouth in the morning for 360 days. 90 tablet 3 DULoxetine (CYMBALTA) 60 mg capsule Take 1 capsule (60 mg total) by mouth in the morning. folic acid (FOLVITE) 1 mg tablet Take 1 tablet (1 mg total) by mouth in the morning. gabapentin (NEURONTIN) 300 mg capsule Take 1 capsule (300 mg total) by mouth in the morning and 1 capsule (300 mg total) at noon and 1 capsule (300 mg total) in the evening and 1 capsule (300 mg total) before bedtime. metoprolol succinate XL (TOPROL XL) 25 mg 24 hr tablet Take 0.5 tablets (12.5 mg total) by mouth inthe morning. 45 tablet 3 nicotine polacrilex (NICORETTE) 4 MG gum Chew 1 each (4 mg total) as directed as needed for smokingcessation. As recommended on Nicorette gum label, weeks 1-6 1 piece every 1-2 hours, week 7-9 1 piece every 2-4 hours, weeks 10-12 1 piece every 4-8 hours. Do not use nicotine gum simultaneously withother tobacco product 100 each 3 prasugreL HCl (EFFIENT) 10 mg tablet Take 1 tablet (10 mg total) by mouth in the morning. 90 tablet3 sennosides-docusate sodium (SENOKOT-S) 8.6-50 mg Take 2 tablets by mouth 2 (two) times a day as needed for constipation. spironolactone (ALDACTONE) 25 mg tablet Take 1 tablet (25 mg total) by mouth in the morning. 90 tablet 3 thiamine HCl (VITAMIN B-1) 100 mg tablet Take 1 tablet (100 mg total) by mouth in the morning. valsartan (DIOVAN) 40 mg tablet Take 1 tablet (40 mg total) by mouth in the morning and 1 tablet (40 mg total) before bedtime. 90 tablet 3 Allergies: Sulfa (sulfonamide antibiotics) Social History: Tobacco: reports that she has been smoking cigarettes. She has never used smokeless tobacco. Alcohol: reports current alcohol use. Drug Use: reports no history of drug use. Family History: Family History Problem Relation Age of Onset Heart disease Mother Heart disease Father Heart disease Son REVIEW OF SYSTEMS: All reviewed positive for findings as mentioned in HPI Code Status: Full Code PHYSICAL EXAM: Vitals: BP 112/45 Pulse 93 Temp 36.6 ??C (97.9 ??F) (Oral) Resp 24 Ht 154.9 cm (5' 1 ) Wt46.9 kg (103 lb 6.3 oz) SpO2 98% BMI 19.54 kg/m?? Temp (24hrs), Av.2 ??C (97.1 ??F), Min:35.4 ??C (95.8 ??F), Max:36.7 ??C (98.1 ??F) Admission Weight: Weight: 49.6 kg (109 lb 5.6 oz) BMI: Body mass index is 19.54 kg/m??. General Appearance: awake, confused Head: atraumatic normocephalic Eyes: nonicteric sclera Neck: supple with no lymphadenopathy thyroid is not palpable Lungs: clear with auscultation Heart: regular rate and rhythm Abdomen: soft with tenderness noted with palpation. Right greater than left. Neurologic: awake, confused DATA: Results from last 3 days Lab Units 09/13/24 0411 09/12/24 2230 09/12/24 1554 BUN mg/dL 105* 107* 118* CREATININE mg/dL 2.30* 2.69* 3.51* POTASSIUM mmol/L 4.3 4.9 5.3* CO2 mmol/L 12* 10* 8* CHLORIDE mmol/L 103 102 97* GLUCOSE mg/dL 188* 127* 185* MAGNESIUM mg/dL 3.1* -- 3.1* AST U/L 15 -- 16 ALT U/L 10 -- 16 ALK PHOS U/L 84 -- 77 No data from last 3 days. Results from last 3 days Lab Units 09/13/24 0411 09/12/24 1554 WBC x10E9/L 31.5* 33.2* HEMOGLOBIN g/dL 12.8 11.0* HEMATOCRIT % 37.0 32.6* PLATELETS X10E9/L 342 422 MCV fL 92 92 MCH pg 31.9 31.0 MCHC g/dL 34.5 33.7 RDW % 14.9 14.6 MONO ABS MAN 10*3/uL 1.3* 0.7 Fluoroscopy swallow motility function Result Date: 09/13/2024 Narrative: STUDY: Video fluoroscopic swallow study CLINICAL HISTORY: Oral pharyngeal dysphagia, difficulty swallowing COMPARISON: None. FINDINGS: Video fluoroscopic swallow study was performed in conjunction with members of speech pathology. Barium contrast materials of multiple consistencies were a dministered. Fluoroscopic reference air kerma was 4.3 mGy. Fluoroscopy time: 40 seconds. No aspiration or penetration visualized across all tested consistencies. These included thin liquids, applesauce, and fruit. IMPRESSION: No aspiration or penetration visualized across all tested consistencies. Please see speech pathologist report for additional details and recommendations. Finalized by Rory Harris MD on 09/13/2024 12:[address] angiogram abdominal aorta with runoff Result Date: 09/12/2024 Narrative: EXAM: CT CTA ABD AORTA W RUNOFF CLINICAL INFORMATION: No pulses in either foot per ED. TECHNIQUE: Following the uneventful intravenous administration of 100 mL Omnipaque 350, a CT angiogram of the bilateral lower extremity runoff was obtained. Coronal, sagittal, and volume rendered 3-D MIP reformatted images were obtained from the axial CT data. Automated exposure control was utilized.COMPARISON: CTA performed earlier on 09/12/2024 FINDINGS: The upper abdomen is excluded. There are soft and calcified plaque throughout a normal diameter abdominal aorta and iliac arteries without evidence for dissection or aneurysm. The origins of the celiac and superior mesenteric arteries are notincluded. The origins of the renal arteries are normal and widely patent. There is no evidence for stenosis. There are mild calcifications in the right common femoral artery without evidence for stenosis. The right superficial femoral artery is well opacified. There is focal moderate stenosis of the popliteal artery. The tibial peroneal trunk is unremarkable. The peroneal and posterior tibial arteries terminate in the mid calf. The anterior tibial artery extends into the ankle and foot. The left common femoral artery is unremarkable. The left superficial femoral artery is well opacified. There are mild calcifications of the popliteal artery without significant stenosis. There is a focal calcification of the mid anterior tibial artery with focal severe stenosis. The peroneal and posterior tibial arteries terminate in the mid calf. The anterior tibial artery extends into the ankle and foot. There are bilateral superficial cysts of the dorsal knees, suspected popliteal cyst. The partially visualized liver is unremarkable. A distended gallbladder is present. The partially visualized kidneys are unremarkable. The pancreas is mostly not included. The spleen is not included. The adrenalsare not included. There are no dilated loops of bowel or evidence of pneumatosis or free air. Thereis no free fluid. IMPRESSION: 1. Please note, the upper abdomen and proximal abdominal aorta are not included on this examination. 2. Atherosclerotic disease throughout a normal diameter abdominal aorta without evidence for acute dissection, aneurysm, or stenosis. 3. The posterior tibial and peroneal arteries terminate in the mid calf. There is single vessel anterior tibial artery inflow into thebilateral ankles and feet. 3. Focal moderate stenosis of the right popliteal artery. 4. Focal severe stenosis of the mid left anterior tibial artery. 5. Bilateral popliteal Matias's cyst. 6. Please see separate dictation of the dedicated CTA of the abdomen and pelvis. All CT scans at this facility use dose modulation, iterative reconstruction, and/or weight based dosing when appropriate to reduce radiation dose to as low as reasonably achievable. Finalized by Paras Nixon MD on 09/12/2024 4:52 PM Ultrasound abdomen limited Result Date: 09/12/2024 Narrative: GALLBLADDER ULTRASOUND COMPARISON: CT abdomen pelvis 09/12/2024 HISTORY: Distended gallbladder, abnormal CT. Technique: Gallbladder ultrasound performed. Evaluation is compromised as patient was unable to roll for left lateral decubitus positioning due to condition. IMPRESSION: 1. Distended gallbladder. Small amount of gallbladder sludge. No gallbladder wall thickening or pericholecystic fluid. Technologist reports a negative sonographic Mcleod's sign. 2. Biliary ductal dilatation. Common duct measures 8 mm in diameter. Correlate clinically for laboratory values for biliary obstruction. Consider MRCP. Finalized by Leobardo Pascal MD on 09/12/2024 4:[address] angiogram chest Result Date: 09/12/2024 Narrative: CT CTA CHEST HISTORY: dissection, transient alteration of awareness COMPARISON: None TECHNIQUE: Contiguous axial images are obtained of the Chest with 100 mL of Omnipaque 350 IV contrast. Coronal and sagittal reconstructions were performed and reviewed. Sagittal and coronal reformatted images with 3-D Maximum intensity projection reconstructions constructed under concurrent physician supervision on a separate workstation. Automatic exposure control was utilized. All CT scans at this facility use dose modulation, iterative reconstruction, and/or weight based dosing when appropriate to reduce radiation dose to as low as reasonably achievable. FINDINGS: LOWER NECK: Within normal limits. MEDIASTINUM: The visualized thyroid is unremarkable. No mediastinal lymphadenopathy. No hilar lymphadenopathy. AXILLA: No axillary lymphadenopathy. HEART: Heart size is within normal limits. No significant pericardial effusion. Moderate coronary artery calcification/stenting. Nonaneurysmal thoracic aorta with mild atherosclerotic calcification. PULMONARY ARTERIES: Main pulmonary artery size is within normal limits. No filling defects of the main pulmonary arteries or segmental branches to suggest emboli. ABDOMEN: Same day CTA abdomen and pelvis dictated separately. SOFT TISSUES: The soft tissues are unremarkable. BONES: No acute abnormality. LUNGS: The trachea and proximal airways are un remarkable. The lungs are unremarkable. PLEURA: No pleural effusions or pneumothorax. IMPRESSION: *No acute thoracic abnormality. Approved by Resident Mahnaz Eric DO on 09/12/2024 3:49 PM Consuelo Castillo MD have personally reviewed the image(s) and agree with and/or edited the report Workstatio n:[id number] Finalized by Markos Bañuelos MD on 09/12/2024 4:[address] angiogram abdomen and pelvis Result Date: 09/12/2024 Narrative: CT CTA ABD AND PELVIS CLINICAL INFORMATION: dissection COMPARISON: 02/28/2022. PROCEDURE:Routine CT Angiography of the abdomen and pelvis obtained after the uncomplicated intravenous administration of contrast. Sagittal and coronal reformatted images with 3-D Maximum intensity projectionreconstructions constructed under concurrent physician supervision on a independent workstation forevaluation of vascular abnormalities. All CT scans at this facility use dose modulation, iterative reconstruction, and/or weight based dosing when appropriate to reduce radiation dose to as low as reasonably achievable. FINDINGS: Lung bases demonstrate no acute findings. The liver is unremarkable. F luid-filled stomach. Large hydropic gallbladder without marked wall thickening. Prominent common bile duct measuring 8 mm. Arterial enhancement pattern in the spleen. Pancreas is normal. Adrenal glands are unchanged, small benign nodule on the left measuring about 8 mm. Minimal scarring in the kidneys with low- attenuation areas that are too small to characterize. Some patchy cortical areas of lowattenuation present. The bladder is normal. Constipation. No bowel obstruction. No dissection. Atherosclerotic calcifications in the aorta. Calcified and noncalcified atherosclerotic disease. No enlarged lymph nodes. Retroaortic left renal vein. Degenerative changes are present. 3-D reformatted images confirm the source data findings. IMPRESSION: * No evidence of aortic aneurysm or dissection. Severe atherosclerotic changes. * Patchy enhancement in the kidneys, urinalysis is recommended to assess for pyelonephritis. * Hydropic gallbladder and prominent extrahepatic biliary tree, correlate with right upper quadrant ultrasound biliary laboratory data. Surgical consultation could be obtained as indicated. * Please see above for further details. Finalized by Mao Kauffman MD on 09/12/2024 3:[address] brain without contrast Result Date: 09/12/2024 Narrative: CT BRAIN WO CONT CLINICAL INFORMATION: ams COMPARISON: None. PROCEDURE: Routine CT Head obtained without contrast. All CT scans at this facility use dose modulation, iterative reconstruction, and/or weight based dosing when appropriate to reduce radiation dose to as low as reasonably achi evable. FINDINGS: No acute intracranial hemorrhage. No mass effect or midline shift. No extra axialfluid collection. No hydrocephalus. Alexandre-white differentiation is preserved. No depressed calvarialfracture. IMPRESSION: * No acute intracranial findings by CT. Finalized by Mao Kauffman MD on 09/12/2024 3:47 PM ASSESSMENT: Patient Active Problem List Diagnosis Date Noted S[place] 09/12/2024 Chronic systolic heart failure [place] 06/17/2024 Mixed hyperlipidemia 05/11/2024 CHB (complete heart block) [place] 05/07/2024 ST elevation myocardial infarction (STEMI) [place] 05/07/2024 Coronary artery disease involving saxman coronary artery of saxman heart 05/07/2024 HTN (hypertension) Osteoarthritis of cervical spine 03/14/2018 Cervical spondylosis without myelopathy 11/03/2017 Alie Lowe is a 63 y.o. female who presented with altered mental status. Ultrasound of abdomen showed distended gallbladder with sludge. CTA with atherosclerotic disease. Patient with leukocytosis. WBC 35555. General surgery consultation was initiated for further surgical management PLAN: We will continue to monitor closely with series of abdominal exam NPO status, IV fluid hydration, IV antibiotic Continue current care per primary care team and other consultants O Bertrand 09/13/24 1326 >>>>>>>>>>>>>>>>>>>>>>> ATTENDING NOTE <<<<<<<<<<<<<<<<<<<<<<<<<< I have seen and evaluated the patient, and have also reviewed the history above. I have repeated and performed the carrington portions of the physical exam and concur with the resident's/advanced practice provider findings. I have reviewed all pertinent laboratory findings and imaging reports/films. We have discussed the patient's status and the appropriate treatment options/plan on the day of the encounter. I agree with the plan as noted above with any changes documented below. Reviewed the CT scan that was done by the emergency room. [place] [address]. Patient has no right upper quadrant pain. But she is tender in suprapubic and lower abdominal area.I reviewed the CT imaging. CT shows a intramural abscess consistent with diverticular abscess in the lower pelvis. Looks like it is too small for IR drainage. Recommend continued broad-spectrum IV antibiotics. Strict NPO until her pain resolves. This could be 2-3 days. We will consider TPN in a dayor 2 if she is not having return of bowel function. No surgical intervention at this time Leobardo Brower MD, FACS [facility] General Surgeons Minimally Invasive Robotic Surgery Clinical him specialist, [facility] Board Certified in General Surgery Board Certified in Critical Care Office: [phone] Email: [email or web address] Thank you for allowing me to participate in the care of your patient. Please feel free to contact me with any questions or concerns. documented in this encounter Miscellaneous Notes * Plan of Care - Beatriz Sal RN - 09/18/2024 4:35 PM EDT Problem: Pain Goal: Patient goal is pain score less than 4, able to rest, and participant in treatment plan as appropriate Description: INTERVENTIONS: 1. Encourage patient or legal maintenance representative to report early pain and ask for pain medicine when needed 2. Assess pain using appropriate pain scale and include the scale used when documenting 3. Administer analgesics based on type and severity of pain and evaluate response within appropriate time frame 4. Implement non-pharmacological measures as appropriate and evaluate response 5. Consider cultural and social influences on pain and pain management 6. Notify LIP if interventions ineffective or patient reports new pain 7. Monitor vital signs including pulse ox, end-tidal CO2 based on pain intervention 8. Reassess pain per policy 9. Teach patient or legal maintenance representative interventions for comforting Outcome: Adequate for Discharge Problem: Infection Goal: Absence of infection during hospitalization Description: INTERVENTIONS 1. Assess and monitor for signs and symptoms of infection. 2. Monitor lab/diagnostic results. 3. Monitor all insertion sites i.e., indwelling lines, tubes and drains. 4. Monitor endotracheal (as able) and nasal secretions for changes in amount and color. 5. Administer medications as ordered. 6. Instruct and encourage patient and family to use good hand hygiene technique. 7. Identify and instruct patient/patient maintenance representative in use of appropriate isolation precautionsfor identified infection/symptoms. 8. Provide and discuss with patient/patient maintenance representative on educational MDRO sheet. 9. Encourage and monitor nutritional status daily and consult high school drafting teacher if indicated. 10. Implement neutropenic guidelines as needed. Outcome: Adequate for Discharge Problem: Knowledge Deficit Goal: Patient/patient maintenance representative demonstrates understanding of disease process, treatment plan,medications, and discharge instructions Description: INTERVENTIONS 1. Complete learning assessment and assess knowledge base 2. Provide teaching at level of understanding 3. Provide teaching via preferred learning method(s) Outcome: Adequate for Discharge Problem: Discharge Planning Goal: Discharge to post-acute care, other facility, or home with appropriate resources Description: Patient's goal is: INTERVENTIONS 1. Conduct assessment to determine patient/family and health care team treatment goals, and need for post-acute services based on payer coverage, community resources, and patient preferences, and barriers to discharge 2. Coordinate with Social work, Care Navigation, and Utilization Review to arrange appropriate level of services according to patient's needs based on patient preference and payer coverage in collaboration with the physician and health care team 3. Address psychosocial, clinical, and financial barriers to discharge as identified in assessment in conjunction with the patient/family and health care team 4. Consult appropriate ancillary services (i.e.. PT/OT/ST, etc) as needed 5. Communicate with and update the patient/family, physician, and health care team regarding progress on the discharge plan 6. Identify discharge learning needs (meds, wound care, etc). 7. Arrange for needed discharge transportation as appropriate Outcome: Adequate for Discharge * Discharge Planning Note - TURNER Johnson - 09/18/2024 4:03 PM EDT DISCHARGE PLANNING NOTE DC orders received and sent to [address] to transport patient home * PT/OT/PUBLIC HEALTH ENGINEER - MELINA Goss - 09/18/2024 10:47 AM EDT Occupational Therapy Treatment Discharge Recommendations for Safe Patient Transition Discharge Recommendations: Home Home Recommendations: Home, Intermittent caregiver support for: (high level ADLs, IADLs, as prior) OT Post Discharge Therapy Recommendations: Home Occupational Therapy (if needed) Current Impairments Informing Therapy Recommendation: Ambulation status/safety, Cognition, Fall risk, ADL status, Endurance level 6 Clicks: Daily Activity Putting on and taking off regular lower body clothing?: A little Bathing (including washing, rinsing, drying)?: A little Toileting, which includes using toilet, bedpan or urinal?: A little Putting on and taking off regular upper body clothing?: None Taking care of personal grooming such as brushing teeth?: None Eating meals?: None Scoring Daily Activity Raw Score: 21 CMS G Code Modifier: CJ Therapy Plan OT Treatment/Interventions: ADL retraining, Functional transfer training, UE strengthening/ROM, Endurance training, Patient/family training, Equipment eval/education, Balance, Home management, Compensatory technique education, Functional activities, Bed mobility OT Frequency: 5-6days/week OT Duration: LOS Assessment Patient Assessment Therapy Problem List: Decreased balance, Decreased cognition, Decreased high- level ADLs, Decreased mobility Patient Response to Treatment: Progressing toward goals Mood/Affect: Appropriate for circumstances Rehab Prognosis: Good, With continued OT status post acute discharge Visit RN Communication: Yes Medical Record Reviewed: Yes OT Type of Visit: Treatment Precautions Activity: ok to see per RN Equipment: gait belt, alarms, IV, hylton catheter Telemetry/Director Professional Services: Yes Oxygen Order : MILLING SUPERVISOR guidelines Oxygen Used: room air Other: fall risk, adm with AMS Pain Assessment Pain Assessment: No/denies pain ADL / IADL Hand Dominance: Left Where Assessed: Sitting at sink Grooming Assistance: Modified independent Grooming Deficit: Increased time to complete Other: cues for line awareness only Home Management - IADL Other: cues for line awareness only Hearing / Speech / Vision Hearing: Within Functional Limits Speech: Within Functional Limits Current Vision: No visual deficits Cognition Overall Cognitive Status: Exceptions to Within Functional Limits Arousal/Alertness: Appropriate responses to stimuli Attention Span: Attends with cues to redirect Memory: Decreased recall of recent events, Decreased recall of precautions, Immediate Orientation Level: Oriented to person, Oriented to place, Oriented to situation, Oriented to age Following Commands: Follows one step commands with increased time, Follows one step commands with repetition Safety Judgment: Decreased awareness of need for assistance, Decreased awareness of need for safety Awareness of Errors: Decreased awareness of errors Insight of Deficits: Decreased awareness of deficits Problem Solving: Assistance required to identify errors made, Assistance required to implement solutions Interfering Components: Attention to detail, Processing speed, Working memory Bed Mobility Other: pt in recliner at session end with call light in reach and all needs met, alarm on. nursing updated. Transfers Sit to Stand: Modified independent Stand to Sit: Modified independent Other: no use of AD for transfers, cues for line awareness including hylton management Gait Other: Pt completed functional mobility in pt room to and from bathroom no use of AD, with SBA withcues for line awareness. and in hallways household distances without use of AD and CGA. pt completed stair management using L rail per home setup with CGA, 6 steps. Balance Balance Evaluation: Exceptions to Functional Limits Sitting Balance: Static: Normal Sitting Balance: Dynamic: Good Standing Balance: Static: Good Standing Balance: Dynamic: Fair, Good Other: No LOB, unsteady at times during mobility with pt using support on hallway GB as needed. Activity Tolerance Endurance: Tolerates 30 minutes activity with rest breaks Other: few rest breaks required. Plan Occupational Therapy Care Plan Occupational Therapy Care Plan (Active) Template: OT - Occupational Therapy Problem: Activity Tolerance Dates: Start: 09/14/24 Disciplines: OT Goal: No limitations to activity tolerance Dates: Start: 09/14/24 Expected End: 09/28/24 Description: Goal Description: Disciplines: OT Outcomes Date/Time User Outcome 09/18/24 1028 MELINA Goss Progressing 09/17/24 1325 MELINA Brian Progressing 09/16/24 1009 MELINA Goss Progressing Goal Note filed on 09/18/24 1028 by MELINA Goss Evaluation of progress towards goal: Problem: Bed Mobility Dates: Start: 09/14/24 Disciplines: OT Goal: Patient will perform bed mobility with Modified [place] Dates: Start: 09/14/24 Expected End: 09/28/24 Description: Goal Description: Disciplines: OT Outcomes Date/Time User Outcome 09/17/24 1325 MELINA Brian Progressing 09/16/24 1009 MELINA Goss Progressing Goal Note filed on 09/16/24 1009 by MELINA Goss Evaluation of progress towards goal: Problem: Cognition Dates: Start: 09/14/24 Disciplines: OT Goal: Improve cognition Dates: Start: 09/14/24 Expected End: 09/28/24 Description: Pt will implement recall strategies into her routine to inc safety and IND in ADLs. Disciplines: OT Outcomes Date/Time User Outcome 09/18/24 1028 KIKE Goss/Ruby Progressing 09/16/24 1009 MELINA Goss Not Progressing Goal Note filed on 09/18/24 1028 by MELINA Goss Evaluation of progress towards goal: Problem: Functional Mobility Dates: Start: 09/14/24 Disciplines: OT Goal: Patient will perform functional mobility with Modified [place] Dates: Start: 09/14/24 Expected End: 09/28/24 Description: Goal Description: Disciplines: OT Outcomes Date/Time User Outcome 09/18/24 1028 KIKE Goss/Ruby Progressing 09/17/24 1325 MELINA Brian Progressing 09/16/24 1009 MELINA Goss Progressing Goal Note filed on 09/18/24 1028 by MELINA Goss Evaluation of progress towards goal: Problem: Other (Customize) Dates: Start: 09/14/24 Disciplines: OT Goal: Improve Dates: Start: 09/14/24 Expected End: 09/28/24 Description: Pt will complete all ADL at MOD I with use of DME / AE prn Disciplines: OT Outcomes Date/Time User Outcome 09/18/24 1028 MELINA Goss Progressing 09/16/24 1009 MELINA Goss Progressing Goal Note filed on 09/18/24 1028 by MELINA Goss Evaluation of progress towards goal: Problem: Standing Balance Dates: Start: 09/14/24 Disciplines: OT Goal: Improve balance to good Dates: Start: 09/14/24 Expected End: 09/28/24 Description: Static Dynamic Disciplines: OT Outcomes Date/Time User Outcome 09/18/24 1028 MELINA Goss Progressing 09/17/24 1325 MELINA Brian Progressing 09/16/24 1009 MELINA Goss Progressing Goal Note filed on 09/18/24 1028 by MELINA Goss Evaluation of progress towards goal: Problem: Strength Dates: Start: 09/14/24 Disciplines: OT Goal: Improve strength Dates: Start: 09/14/24 Expected End: 09/28/24 Description: Pt will tolerate B UE HEP to inc overall strength to 5/5 to assist with ADL transfers. Disciplines: OT Problem: Transfers Dates: Start: 09/14/24 Disciplines: OT Goal: Patient will perform transfers with Modified [place] Dates: Start: 09/14/24 Expected End: 09/28/24 Description: Goal Description: Disciplines: OT Outcomes Date/Time User Outcome 09/18/24 1028 MELINA Goss Progressing 09/17/24 1325 MELINA Brian Progressing 09/16/24 1009 MELINA Goss Progressing Goal Note filed on 09/18/24 1028 by MELINA Goss Evaluation of progress towards goal: Occupational Therapy Care Plan (Resolved) There are no resolved problems. Principal Problem: Sepsis ([facility]) Cosigned by PRIYA Encarnacion/Ruby at 09/18/2024 11:04 AM EDT Associated attestation - Tosha Almaraz OTR/L - 09/18/2024 11:04 AM EDT I have reviewed and agree with documentation for this visit. * PT/OT/PUBLIC HEALTH ENGINEER - Meg Tavera PTA - 09/18/2024 10:01 AM EDT Physical Therapy Treatment Discharge Recommendations for Safe Patient Transition Discharge Recommendations: Home (change of d/c recommendations discussed with supervising PT) Home Recommendations: Home, Intermittent caregiver support for: (IADLs) PT Post Discharge Therapy Recommendations: Home Physical Therapy (if needed upon d/c) 6 Clicks: Basic Mobility Turning from your back to your side while in a flat bed without using bed rails?: None Moving from lying on your back to sitting on side of flat bed without using bed rails?: None Moving to and from bed to a chair (including w/c)?: A little Standing up from a chair using your arms (e.g. w/c or bedside chair)?: None To walk in hospital room?: A little Climbing 3-5 steps with a railing?: A little Scoring 6 Clicks: Basic Mobility Raw Score: 21 CMS G Code Modifier: CJ Therapy Plan PT Treatment/Interventions: Functional transfer training, LE strengthening/ROM, Endurance training,Cognitive reorientation, Patient/family training, Equipment eval/education, Balance, Bed mobility, Gait training, Functional activities, Neuromuscular reeducation PT Frequency: 5-6days/week PT Duration: LOS Assessment Patient Assessment Therapy Problem List: Decreased balance, Decreased cognition, Decreased high- level ADLs, Decreased mobility Patient Response to Treatment: Progressing toward goals Mood/Affect: Appropriate for circumstances Rehab Prognosis: Good, With continued PT status post acute discharge Visit RN Communication: Yes Medical Record Reviewed: Yes PT Type of Visit: Treatment Precautions Activity: ok for tx per RN Equipment: gait belt, alarms, IV, hylton catheter Telemetry/Director Professional Services: No Oxygen Order : maintain SpO2 >90% Oxygen Used: room air Other: fall risk, adm with AMS; alarms Pain Assessment Pain Assessment: No/denies pain Hearing / Speech / Vision Hearing: Within Functional Limits Speech: Within Functional Limits Current Vision: No visual deficits Cognition Overall Cognitive Status: Exceptions to Within Functional Limits Arousal/Alertness: Appropriate responses to stimuli Attention Span: Attends with cues to redirect Memory: Decreased recall of recent events, Decreased recall of precautions, Decreased immediate memory Orientation Level: Oriented X4 Following Commands: Follows one step commands consistently Safety Judgment: Decreased awareness of need for assistance, Decreased awareness of need for safety Awareness of Errors: Decreased awareness of errors Insight of Deficits: Decreased awareness of deficits Problem Solving: Assistance required to identify errors made, Assistance required to implement solutions Interfering Components: Attention to detail, Processing speed, Working memory Other: pt pleasant with good direction following, decreased awareness of IV lines and catheter, attempted to walk away form chair while catheter still attached. Bed Mobility Other: Bed mobility not observed, pt in recliner at atart and end of session. Feet supported, seat alalrm on. Call light, phone and tray table in reach. RN updated. Transfers Sit to Stand: Modified independent Stand to Sit: Modified independent Stand Pivot Transfers: Standby assist (assist to manage IV and catheter lines) Other: no use of AD, no unsteadiness or LOB Gait Base of Support: Within Functional Limits Pattern: Within Functional Limits Gait Assistance: Standby assist Assistive Device: None Gait Distance: ~300' 2 Turns: Yes (no LOB) Stair Management Technique: One rail L up, Alternating pattern, Forwards Stair Management Assistance: Contact guard assist Number of Stairs: 6 Other: gait training in room and hallway without use of AD, no LOB or unsteadiness Balance Sitting Balance: Static: Normal Sitting Balance: Dynamic: Good Standing Balance: Static: Good Standing Balance: Dynamic: Fair, Good Other: Pt able to pull sock up in single leg stance with CGA. packed items from bathroom in preparation for discharge with SBA. Stood for hygiene tasks with supervision. Need cues for safety and recall of IV lines and catheter. Activity Tolerance Endurance: Tolerates 30 minutes activity WITHOUT rest breaks Other: no rest breaks needed during session Plan Physical Therapy Care Plan Physical Therapy Care Plan (Active) Template: PT - Physical Therapy Problem: Activity Tolerance Dates: Start: 09/14/24 Disciplines: PT Goal: No limitations to activity tolerance Dates: Start: 09/14/24 Expected End: 09/28/24 Description: Goal Description: Disciplines: PT Outcomes Date/Time User Outcome 09/18/24 103Belinda Tavera PTA Progressing 09/17/24 131Marla Tavera PTA Progressing 09/16/24 101Les Tavera PTA Progressing Problem: Bed Mobility Dates: Start: 09/14/24 Disciplines: PT Goal: Patient will perform bed mobility with Modified [place] Dates: Start: 09/14/24 Expected End: 09/28/24 Description: Goal Description: Disciplines: PT Outcomes Date/Time User Outcome 09/17/24 131Marla Tavera PTA Progressing Problem: Gait Dates: Start: 09/14/24 Disciplines: PT Goal: Patient will perform gait with Modified [place] Dates: Start: 09/14/24 Expected End: 09/28/24 Description: With_rw___,_150___feet Goal Description: good safety awareness with use of RW. Disciplines: PT Outcomes Date/Time User Outcome 09/18/24 103Belinda Tavera PTA Progressing 09/17/24 131Marla Tavera PTA Progressing 09/16/24 Donnie Tavera PTA Progressing Problem: Sitting Balance Dates: Start: 09/14/24 Disciplines: PT Goal: Improve balance to good Dates: Start: 09/14/24 Expected End: 09/28/24 Description: Static Dynamic Disciplines: PT Outcomes Date/Time User Outcome 09/18/24 1032 Meg Tavera PTA Adequate for Discharge 09/17/24 1311 Meg Tavera, BOARD WORKER Progressing 09/16/24 1019 Meg Tavera BOARD WORKER Progressing Problem: Stairs/Curb Dates: Start: 09/14/24 Disciplines: PT Goal: Patient will perform stairs/curb with Modified [place] Dates: Start: 09/14/24 Expected End: 09/28/24 Description: ___FF_steps,_1-2____hand rails Goal Description: Disciplines: PT Outcomes Date/Time User Outcome 09/18/24 103Belinda Tavera PTA Progressing Problem: Standing Balance Dates: Start: 09/14/24 Disciplines: PT Goal: Improve balance to good Dates: Start: 09/14/24 Expected End: 09/28/24 Description: Static Dynamic Disciplines: PT Outcomes Date/Time User Outcome 09/18/24 1032 Meg Tavera, IRAJ Progressing 09/17/24 1311 Meg Tavera BOARD WORKER Progressing 09/16/24 1019 Meg Tavera BOARD WORKER Progressing Problem: Transfers Dates: Start: 09/14/24 Disciplines: PT Goal: Patient will perform transfers with Modified [place] Dates: Start: 09/14/24 Expected End: 09/28/24 Description: Goal Description: Disciplines: PT Outcomes Date/Time User Outcome 09/18/24 1032 Meg Tavera, BOARD WORKER Progressing 09/17/24 1311 Meg Tavera PTA Progressing 09/16/24 1019 Meg Tavera PTA Progressing Physical Therapy Care Plan (Resolved) There are no resolved problems. Principal Problem: Sepsis ([facility]) Cosigned by Juana Pedraza PT at 09/18/2024 12:13 PM EDT Associated attestation - Juana Pedraza PT - 09/18/2024 12:13 PM EDT I have reviewed and agree with this note and education documentation for this visit. * Plan of Care - Radha Pace RN - 09/18/2024 4:25 AM EDT Problem: Pain Goal: Patient goal is pain score less than 4, able to rest, and participant in treatment plan as appropriate Description: INTERVENTIONS: 1. Encourage patient or legal maintenance representative to report early pain and ask for pain medicine when needed 2. Assess pain using appropriate pain scale and include the scale used when documenting 3. Administer analgesics based on type and severity of pain and evaluate response within appropriate time frame 4. Implement non-pharmacological measures as appropriate and evaluate response 5. Consider cultural and social influences on pain and pain management 6. Notify LIP if interventions ineffective or patient reports new pain 7. Monitor vital signs including pulse ox, end-tidal CO2 based on pain intervention 8. Reassess pain per policy 9. Teach patient or legal maintenance representative interventions for comforting Outcome: Progressing Note: Evaluation of progress towards goal: Patient denies pain able to rest comfortably Problem: Safety Goal: Patient will be injury free during hospitalization Description: INTERVENTIONS: 1. Assess patient's risk for falls and implement fall prevention plan of care per policy 2. Provide and maintain a safe environment 3. Proper use of double Identifiers 4. Medication administration using the 5 rights 5. Hand hygiene 6. Specimens are labeled at the bedside 7. Instruct patient/ patient maintenance representative about use of safety devices 8. Include patient/ patient maintenance representative in decisions related to safety Outcome: Progressing Note: Evaluation of progress towards goal: Patient free from further injury this shift Problem: Infection Goal: Absence of infection during hospitalization Description: INTERVENTIONS 1. Assess and monitor for signs and symptoms of infection. 2. Monitor lab/diagnostic results. 3. Monitor all insertion sites i.e., indwelling lines, tubes and drains. 4. Monitor endotracheal (as able) and nasal secretions for changes in amount and color. 5. Administer medications as ordered. 6. Instruct and encourage patient and family to use good hand hygiene technique. 7. Identify and instruct patient/patient maintenance representative in use of appropriate isolation precautionsfor identified infection/symptoms. 8. Provide and discuss with patient/patient maintenance representative on educational MDRO sheet. 9. Encourage and monitor nutritional status daily and consult high school drafting teacher if indicated. 10. Implement neutropenic guidelines as needed. Outcome: Progressing Note: Evaluation of progress towards goal: Patient afebrile, currently on antibiotic therapy Problem: Knowledge Deficit Goal: Patient/patient maintenance representative demonstrates understanding of disease process, treatment plan,medications, and discharge instructions Description: INTERVENTIONS 1. Complete learning assessment and assess knowledge base 2. Provide teaching at level of understanding 3. Provide teaching via preferred learning method(s) Outcome: Progressing Note: Evaluation of progress towards goal: Patient udpated on plan of care, antibiotic interval medication indication, maintain hylton Problem: Discharge Planning Goal: Discharge to post-acute care, other facility, or home with appropriate resources Description: Patient's goal is: INTERVENTIONS 1. Conduct assessment to determine patient/family and health care team treatment goals, and need for post-acute services based on payer coverage, community resources, and patient preferences, and barriers to discharge 2. Coordinate with Social work, Care Navigation, and Utilization Review to arrange appropriate level of services according to patient's needs based on patient preference and payer coverage in collaboration with the physician and health care team 3. Address psychosocial, clinical, and financial barriers to discharge as identified in assessment in conjunction with the patient/family and health care team 4. Consult appropriate ancillary services (i.e.. PT/OT/ST, etc) as needed 5. Communicate with and update the patient/family, physician, and health care team regarding progress on the discharge plan 6. Identify discharge learning needs (meds, wound care, etc). 7. Arrange for needed discharge transportation as appropriate Outcome: Progressing Note: Evaluation of progress towards goal: Patient to be discharged with home care Problem: Moderate - High Risk Fall Score Description: Lew Fall Score of =/> 25 or indicated by [facility] Assessment Goal: Patient should be free from fall Description: Interventions: 1. [place] to environment 2. Hourly rounds addressing the 4 P's (Pain, Positioning, Possessions, Potty) 3. Clear area of hazards (spills, clutter, electrical cords, unnecessary equipment) 4. Place equipment (bed & TV controls, call light, phone, urinal) within reach 5. Encourage patient to wear glasses and hearing aides as appropriate 6. Maintain bed in lowest position 7. Lock wheels on bed/wheelchair 8. Provide adequate lighting, including night light 9. Assess need for additional bedding, food/fluids, pain med's prior to sleep/routinely 10. Provide gripper slippers or personal non-skid footwear 11. Teach patient and patient maintenance representative to maintain environment for safety and engage in all aspects of fall prevention program 12. Remind patient to call for help before getting out of bed 13. Initiate bed/chair/exit alarms supportive devices as appropriate, (chair wedge, no-skid floor mat, raised edge mattress, hip protectors) 14. Locate patient bed assignment for optimal visualization 15. Evaluate and identify Safe Patient Handling Equipment needs 16. Provide supervision when out of bed or chair 17. Utilize gait belt as needed to assist with ambulation 18. Place adaptive equipment (cane, walker) within reach 19. Request patient maintenance representative bring adaptive equipment/mobility aids from home or obtain and provide as needed 20. Consult pharmacy regarding effects of med's affecting mobility, cognition, and alternatives 21. Obtain physician order for PT if risk factors associated with mobility are present 22. Obtain physician order for OT as appropriate 23. Utilize diversional activities 24. Educate patient and patient maintenance representative how to maintain a safe environment during visitationtimes (notify nurse prior to leaving bedside) 25. Consider appropriateness of medical or non-nuclear medical technologist 26. Set up voiding schedule as appropriate (every 2 hours) Outcome: Progressing Note: Evaluation of progress towards goal: Patient free from fall injury Problem: Potential for Compromised Skin Integrity Goal: Skin integrity is maintained or improved Description: Patient's goal is: INTERVENTIONS 1. Perform initial skin assessment on admission and as needed 2. Turn patient every 2 hours and PRN 3. Relieve pressure to bony prominences 4. Avoid shearing 5. Keep skin clean and dry 6. Alternate a full bath with partial baths for elderly 7. Apply lotion/moisturizer on skin 8. Monitor patient's hygiene practices 9. Float heels 10. Collaborate with interdisciplinary team and initiate plans and interventions as needed Outcome: Progressing Note: Evaluation of progress towards goal: Patients skin integrity maintained Goal: Patient's nutritional intake is adequate Description: Patient's goal is: INTERVENTIONS 1. Assess and monitor food intake and supplements, patient food preferences, nausea, vomiting, labs, oral cavity (gums, teeth, tongue, mucosa), proper denture fit, and cultural beliefs 2. Monitor for signs of hypoglycemia and hyperglycemia 3. Collaborate with interdisciplinary team and initiate plan and interventions as ordered 4. Monitor patient's weight 5. Assist patient with meals/food selection 6. Assist patient with eating 7. Allow adequate time for meals 8. Provide pleasant environment during mealtime 9. Increase social contact during mealtimes 10. Plan activities to conserve energy 11. Encourage/perform oral hygiene as appropriate 12. Encourage patient to take dietary supplement as ordered 13. Collaborate with clinical high school drafting teacher 14. Include patient/ patient's maintenance representative in decisions related to nutrition Outcome: Progressing Note: Evaluation of progress towards goal: Patient reports good appetite Problem: Urinary Incontinence Goal: Perineal skin integrity is maintained or improved Description: INTERVENTIONS 1. Assess genitourinary system, perineal skin, labs (urinalysis), and history of incontinence to include past management, aggravating, and alleviating factors 2. Keep skin clean and dry 3. Apply skin protectant 4. Develop skin care regimen 5. Provide privacy when changing patients incontinence device to maintain their dignity 6. Consider placing an indwelling catheter 7. Collaborate with interdisciplinary team and initiate plans and interventions as needed Outcome: Progressing Note: Evaluation of progress towards goal: Patient on hylton catheter Problem: Safety Goal: Patient will be injury free during hospitalization Description: INTERVENTIONS: 1. Assess patient's risk for falls and implement fall prevention plan of care per policy 2. Provide and maintain a safe environment 3. Proper use of double Identifiers 4. Medication administration using the 5 rights 5. Hand hygiene 6. Specimens are labeled at the bedside 7. Instruct patient/ patient maintenance representative about use of safety devices 8. Include patient/ patient maintenance representative in decisions related to safety Outcome: Progressing Note: Evaluation of progress towards goal: Patient free from further injury this shift Problem: Infection Goal: Absence of infection during hospitalization Description: INTERVENTIONS 1. Assess and monitor for signs and symptoms of infection. 2. Monitor lab/diagnostic results. 3. Monitor all insertion sites i.e., indwelling lines, tubes and drains. 4. Monitor endotracheal (as able) and nasal secretions for changes in amount and color. 5. Administer medications as ordered. 6. Instruct and encourage patient and family to use good hand hygiene technique. 7. Identify and instruct patient/patient maintenance representative in use of appropriate isolation precautionsfor identified infection/symptoms. 8. Provide and discuss with patient/patient maintenance representative on educational MDRO sheet. 9. Encourage and monitor nutritional status daily and consult high school drafting teacher if indicated. 10. Implement neutropenic guidelines as needed. Outcome: Progressing Note: Evaluation of progress towards goal: Patient afebrile, currently on antibiotic therapy Problem: Knowledge Deficit Goal: Patient/patient maintenance representative demonstrates understanding of disease process, treatment plan,medications, and discharge instructions Description: INTERVENTIONS 1. Complete learning assessment and assess knowledge base 2. Provide teaching at level of understanding 3. Provide teaching via preferred learning method(s) Outcome: Progressing Note: Evaluation of progress towards goal: Patient udpated on plan of care, antibiotic interval medication indication, maintain hylton Problem: Discharge Planning Goal: Discharge to post-acute care, other facility, or home with appropriate resources Description: Patient's goal is: INTERVENTIONS 1. Conduct assessment to determine patient/family and health care team treatment goals, and need for post-acute services based on payer coverage, community resources, and patient preferences, and barriers to discharge 2. Coordinate with Social work, Care Navigation, and Utilization Review to arrange appropriate level of services according to patient's needs based on patient preference and payer coverage in collaboration with the physician and health care team 3. Address psychosocial, clinical, and financial barriers to discharge as identified in assessment in conjunction with the patient/family and health care team 4. Consult appropriate ancillary services (i.e.. PT/OT/ST, etc) as needed 5. Communicate with and update the patient/family, physician, and health care team regarding progress on the discharge plan 6. Identify discharge learning needs (meds, wound care, etc). 7. Arrange for needed discharge transportation as appropriate Outcome: Progressing Note: Evaluation of progress towards goal: Patient to be discharged with home care Problem: Moderate - High Risk Fall Score Description: Lew Fall Score of =/> 25 or indicated by [facility] Assessment Goal: Patient should be free from fall Description: Interventions: 1. [place] to environment 2. Hourly rounds addressing the 4 P's (Pain, Positioning, Possessions, Potty) 3. Clear area of hazards (spills, clutter, electrical cords, unnecessary equipment) 4. Place equipment (bed & TV controls, call light, phone, urinal) within reach 5. Encourage patient to wear glasses and hearing aides as appropriate 6. Maintain bed in lowest position 7. Lock wheels on bed/wheelchair 8. Provide adequate lighting, including night light 9. Assess need for additional bedding, food/fluids, pain med's prior to sleep/routinely 10. Provide gripper slippers or personal non-skid footwear 11. Teach patient and patient maintenance representative to maintain environment for safety and engage in all aspects of fall prevention program 12. Remind patient to call for help before getting out of bed 13. Initiate bed/chair/exit alarms supportive devices as appropriate, (chair wedge, no-skid floor mat, raised edge mattress, hip protectors) 14. Locate patient bed assignment for optimal visualization 15. Evaluate and identify Safe Patient Handling Equipment needs 16. Provide supervision when out of bed or chair 17. Utilize gait belt as needed to assist with ambulation 18. Place adaptive equipment (cane, walker) within reach 19. Request patient maintenance representative bring adaptive equipment/mobility aids from home or obtain and provide as needed 20. Consult pharmacy regarding effects of med's affecting mobility, cognition, and alternatives 21. Obtain physician order for PT if risk factors associated with mobility are present 22. Obtain physician order for OT as appropriate 23. Utilize diversional activities 24. Educate patient and patient maintenance representative how to maintain a safe environment during visitationtimes (notify nurse prior to leaving bedside) 25. Consider appropriateness of medical or non-nuclear medical technologist 26. Set up voiding schedule as appropriate (every 2 hours) Outcome: Progressing Note: Evaluation of progress towards goal: Patient free from fall injury Problem: Potential for Compromised Skin Integrity Goal: Skin integrity is maintained or improved Description: Patient's goal is: INTERVENTIONS 1. Perform initial skin assessment on admission and as needed 2. Turn patient every 2 hours and PRN 3. Relieve pressure to bony prominences 4. Avoid shearing 5. Keep skin clean and dry 6. Alternate a full bath with partial baths for elderly 7. Apply lotion/moisturizer on skin 8. Monitor patient's hygiene practices 9. Float heels 10. Collaborate with interdisciplinary team and initiate plans and interventions as needed Outcome: Progressing Note: Evaluation of progress towards goal: Patients skin integrity maintained Problem: Potential for Compromised Skin Integrity Goal: Patient's nutritional intake is adequate Description: Patient's goal is: INTERVENTIONS 1. Assess and monitor food intake and supplements, patient food preferences, nausea, vomiting, labs, oral cavity (gums, teeth, tongue, mucosa), proper denture fit, and cultural beliefs 2. Monitor for signs of hypoglycemia and hyperglycemia 3. Collaborate with interdisciplinary team and initiate plan and interventions as ordered 4. Monitor patient's weight 5. Assist patient with meals/food selection 6. Assist patient with eating 7. Allow adequate time for meals 8. Provide pleasant environment during mealtime 9. Increase social contact during mealtimes 10. Plan activities to conserve energy 11. Encourage/perform oral hygiene as appropriate 12. Encourage patient to take dietary supplement as ordered 13. Collaborate with clinical high school drafting teacher 14. Include patient/ patient's maintenance representative in decisions related to nutrition Outcome: Progressing Note: Evaluation of progress towards goal: Patient reports good appetite Problem: Urinary Incontinence Goal: Perineal skin integrity is maintained or improved Description: INTERVENTIONS 1. Assess genitourinary system, perineal skin, labs (urinalysis), and history of incontinence to include past management, aggravating, and alleviating factors 2. Keep skin clean and dry 3. Apply skin protectant 4. Develop skin care regimen 5. Provide privacy when changing patients incontinence device to maintain their dignity 6. Consider placing an indwelling catheter 7. Collaborate with interdisciplinary team and initiate plans and interventions as needed Outcome: Progressing Note: Evaluation of progress towards goal: Patient on hylton catheter * Plan of Care - Beatriz Sal RN - 09/17/2024 2:41 PM EDT Problem: Pain Goal: Patient goal is pain score less than 4, able to rest, and participant in treatment plan as appropriate Description: INTERVENTIONS: 1. Encourage patient or legal maintenance representative to report early pain and ask for pain medicine when needed 2. Assess pain using appropriate pain scale and include the scale used when documenting 3. Administer analgesics based on type and severity of pain and evaluate response within appropriate time frame 4. Implement non-pharmacological measures as appropriate and evaluate response 5. Consider cultural and social influences on pain and pain management 6. Notify LIP if interventions ineffective or patient reports new pain 7. Monitor vital signs including pulse ox, end-tidal CO2 based on pain intervention 8. Reassess pain per policy 9. Teach patient or legal maintenance representative interventions for comforting Outcome: Progressing Note: Evaluation of progress towards goal: patient has no c/o pain Problem: Safety Goal: Patient will be injury free during hospitalization Description: INTERVENTIONS: 1. Assess patient's risk for falls and implement fall prevention plan of care per policy 2. Provide and maintain a safe environment 3. Proper use of double Identifiers 4. Medication administration using the 5 rights 5. Hand hygiene 6. Specimens are labeled at the bedside 7. Instruct patient/ patient maintenance representative about use of safety devices 8. Include patient/ patient maintenance representative in decisions related to safety Outcome: Progressing Note: Evaluation of progress towards goal: safety maintained at this time. Chair alarm on and call light within reach Problem: Infection Goal: Absence of infection during hospitalization Description: INTERVENTIONS 1. Assess and monitor for signs and symptoms of infection. 2. Monitor lab/diagnostic results. 3. Monitor all insertion sites i.e., indwelling lines, tubes and drains. 4. Monitor endotracheal (as able) and nasal secretions for changes in amount and color. 5. Administer medications as ordered. 6. Instruct and encourage patient and family to use good hand hygiene technique. 7. Identify and instruct patient/patient maintenance representative in use of appropriate isolation precautionsfor identified infection/symptoms. 8. Provide and discuss with patient/patient maintenance representative on educational MDRO sheet. 9. Encourage and monitor nutritional status daily and consult high school drafting teacher if indicated. 10. Implement neutropenic guidelines as needed. Outcome: Progressing Note: Evaluation of progress towards goal: IV ATB ordered Problem: Knowledge Deficit Goal: Patient/patient maintenance representative demonstrates understanding of disease process, treatment plan,medications, and discharge instructions Description: INTERVENTIONS 1. Complete learning assessment and assess knowledge base 2. Provide teaching at level of understanding 3. Provide teaching via preferred learning method(s) Outcome: Progressing Note: Evaluation of progress towards goal: plan of care discussed with patient Problem: Discharge Planning Goal: Discharge to post-acute care, other facility, or home with appropriate resources Description: Patient's goal is: INTERVENTIONS 1. Conduct assessment to determine patient/family and health care team treatment goals, and need for post-acute services based on payer coverage, community resources, and patient preferences, and barriers to discharge 2. Coordinate with Social work, Care Navigation, and Utilization Review to arrange appropriate level of services according to patient's needs based on patient preference and payer coverage in collaboration with the physician and health care team 3. Address psychosocial, clinical, and financial barriers to discharge as identified in assessment in conjunction with the patient/family and health care team 4. Consult appropriate ancillary services (i.e.. PT/OT/ST, etc) as needed 5. Communicate with and update the patient/family, physician, and health care team regarding progress on the discharge plan 6. Identify discharge learning needs (meds, wound care, etc). 7. Arrange for needed discharge transportation as appropriate Outcome: Progressing Note: Evaluation of progress towards goal: plan is to return home with [facility] * Discharge Planning Note - Argenis Zurita - 09/17/2024 2:32 PM EDT DISCHARGE PLANNING NOTE Referral sent to [facility]- P# ; F# , [facility], [facility] ([place]: P# ; F# ); [facility] - [facility]) (P# ; F# ) ; [address] [facility] [place] (P# ; F# ); * Discharge Planning Note - TURNER Johnson - 09/17/2024 1:52 PM EDT DISCHARGE PLANNING NOTE Case discussed in daily transition rounds and chart reviewed by CN. Barriers to discharge include SNF auth Discharge Plan remains: [facility]/pending auth SW called dtr with update- [place] can accept patient- tasked for auth CN will continue to follow and is available should any further needs arise. - TURNER JOHNSON 09/17/24 1:53 PM 14:28-SW discussed plans with patient and nurse- Patient is up walking well, doubtful patient will meet SNF level of care- Patient expressed she prefers to return home- agreeable to Home care follow up- Updated dtr, tasked for home care referrals * PT/OT/PUBLIC HEALTH ENGINEER - MELINA Brian - 09/17/2024 1:26 PM EDT Occupational Therapy Treatment Discharge Recommendations for Safe Patient Transition Discharge Recommendations: Post acute - moderate (VS home with family support) Post Acute Moderate Rehab Needs: Recommend moderate intensity rehab, Tolerate 1- 2 hrs of therapy 3-5 days/wk Current Impairments Informing Therapy Recommendation: ADL status, Endurance level 6 Clicks: Daily Activity Putting on and taking off regular lower body clothing?: A little Bathing (including washing, rinsing, drying)?: A little Toileting, which includes using toilet, bedpan or urinal?: A little Putting on and taking off regular upper body clothing?: A little Taking care of personal grooming such as brushing teeth?: A little Eating meals?: None Scoring Daily Activity Raw Score: 19 CMS G Code Modifier: CK OT Treatment/Interventions: ADL retraining, Functional transfer training, UE strengthening/ROM, Endurance training, Patient/family training, Equipment eval/education, Balance, Home management, Compensatory technique education, Functional activities, Bed mobility OT Frequency: 5-6days/week OT Duration: LOS Assessment Patient Assessment Therapy Problem List: Decreased balance, Decreased cognition, Decreased high- level ADLs, Decreased mobility Patient Response to Treatment: Progressing toward goals Mood/Affect: Appropriate for circumstances Rehab Prognosis: Good, With continued OT status post acute discharge Visit RN Communication: Yes Medical Record Reviewed: Yes OT Type of Visit: Treatment Precautions Activity: ok to see per RN Equipment: gait belt, alarms, IV, hylton catheter Telemetry/Director Professional Services: Yes Oxygen Order : maintain SpO2 above 90% Oxygen Used: room air Other: fall risk, adm with AMS Pain Assessment Pain Assessment: No/denies pain ADL / IADL Hand Dominance: Left Where Assessed: Standing at sink, At toilet Grooming Assistance: Standby assist Grooming Deficit: Supervision/safety Toilet/Commode Assistance: Standby assist Toilet/Commode Deficit: Supervison/safety LE Dressing Assistance: Min assist, Verbal cues LE Dressing Deficit: Don/doff brief Footwear Assistance: Setup Other: VC for tech when donning brief at toilet. assist required due to threading of hylton cath. [place] proper tech to manage brief over hips, nabila socks, complete karime care, and groom at sink. reviewed safety awareness. Home Management - IADL Other: VC for tech when donning brief at toilet. assist required due to threading of hylton cath. ptdemos proper tech to manage brief over hips, nabila socks, complete karime care, and groom at sink. reviewed safety awareness. Hearing / Speech / Vision Hearing: Within Functional Limits Speech: Within Functional Limits Current Vision: No visual deficits Cognition Overall Cognitive Status: Exceptions to Within Functional Limits Arousal/Alertness: Appropriate responses to stimuli Attention Span: Attends with cues to redirect Memory: Decreased recall of recent events, Decreased recall of precautions, Immediate Orientation Level: Oriented to person Following Commands: Follows one step commands with increased time, Follows one step commands with repetition Safety Judgment: Decreased awareness of need for assistance, Decreased awareness of need for safety Awareness of Errors: Decreased awareness of errors Insight of Deficits: Decreased awareness of deficits Other: pt demos poor memory, often asking questions on subjects that were just asnwered. Bed Mobility Rolling: Modified independent Supine to Sit: Modified independent Sit to Supine: Unable to assess (seated in chair at end of session. alarm applied) Other: demos proper tech to exit to right side. Transfers Sit to Stand: Modified independent Stand to Sit: Modified independent Toilet Transfers: Standby assist Other: no use of AD noted. min VC for hand placement Gait Other: pt completes greater that house hold distance in [place] with no device. SBA provided for safety. no LOB or SOB noted Balance Sitting Balance: Static: Normal Sitting Balance: Dynamic: Good Standing Balance: Static: Good Standing Balance: Dynamic: Fair, Good Activity Tolerance Endurance: Tolerates >30 minutes activity with rest breaks Plan Occupational Therapy Care Plan Occupational Therapy Care Plan (Active) Template: OT - Occupational Therapy Problem: Activity Tolerance Dates: Start: 09/14/24 Disciplines: OT Goal: No limitations to activity tolerance Dates: Start: 09/14/24 Expected End: 09/28/24 Description: Goal Description: Disciplines: OT Outcomes Date/Time User Outcome 09/17/24 1325 MELINA Brian Progressing 09/16/24 1009 MELINA Goss Progressing Goal Note filed on 09/16/24 1009 by MELINA Goss Evaluation of progress towards goal: Problem: Bed Mobility Dates: Start: 09/14/24 Disciplines: OT Goal: Patient will perform bed mobility with Modified [place] Dates: Start: 09/14/24 Expected End: 09/28/24 Description: Goal Description: Disciplines: OT Outcomes Date/Time User Outcome 09/17/24 1325 MELINA Brian Progressing 09/16/24 1009 MELINA Goss Progressing Goal Note filed on 09/16/24 1009 by MELINA Goss Evaluation of progress towards goal: Problem: Cognition Dates: Start: 09/14/24 Disciplines: OT Goal: Improve cognition Dates: Start: 09/14/24 Expected End: 09/28/24 Description: Pt will implement recall strategies into her routine to inc safety and IND in ADLs. Disciplines: OT Outcomes Date/Time User Outcome 09/16/24 1009 MELINA Goss Not Progressing Goal Note filed on 09/16/24 100 by MELINA Goss Evaluation of progress towards goal: Problem: Functional Mobility Dates: Start: 09/14/24 Disciplines: OT Goal: Patient will perform functional mobility with Modified [place] Dates: Start: 09/14/24 Expected End: 09/28/24 Description: Goal Description: Disciplines: OT Outcomes Date/Time User Outcome 09/17/24 1325 MELINA Brian Progressing 09/16/24 1009 MELINA Goss Progressing Goal Note filed on 09/16/24 1009 by MELINA Goss Evaluation of progress towards goal: Problem: Other (Customize) Dates: Start: 09/14/24 Disciplines: OT Goal: Improve Dates: Start: 09/14/24 Expected End: 09/28/24 Description: Pt will complete all ADL at MOD I with use of DME / AE prn Disciplines: OT Outcomes Date/Time User Outcome 09/16/24 1009 MELINA Goss Progressing Goal Note filed on 09/16/24 1009 by MELINA Goss Evaluation of progress towards goal: Problem: Standing Balance Dates: Start: 09/14/24 Disciplines: OT Goal: Improve balance to good Dates: Start: 09/14/24 Expected End: 09/28/24 Description: Static Dynamic Disciplines: OT Outcomes Date/Time User Outcome 09/17/24 1325 MELINA Brian Progressing 09/16/24 1009 MELINA Goss Progressing Goal Note filed on 09/16/24 1009 by MELINA Goss Evaluation of progress towards goal: Problem: Strength Dates: Start: 09/14/24 Disciplines: OT Goal: Improve strength Dates: Start: 09/14/24 Expected End: 09/28/24 Description: Pt will tolerate B UE HEP to inc overall strength to 5/5 to assist with ADL transfers. Disciplines: OT Problem: Transfers Dates: Start: 09/14/24 Disciplines: OT Goal: Patient will perform transfers with Modified [place] Dates: Start: 09/14/24 Expected End: 09/28/24 Description: Goal Description: Disciplines: OT Outcomes Date/Time User Outcome 09/17/24 1325 MELINA Brian Progressing 09/16/24 1009 MELINA Goss Progressing Goal Note filed on 09/16/24 1009 by MELINA Goss Evaluation of progress towards goal: Occupational Therapy Care Plan (Resolved) There are no resolved problems. Principal Problem: Sepsis (CMS-HCC) Cosigned by HAKEEM Barron at 09/17/2024 1:54 PM EDT Associated attestation - Benita Daugherty OTR/L - 09/17/2024 1:54 PM EDT I have reviewed and agree with this note and education documentation for this visit. * PT/OT/PUBLIC HEALTH ENGINEER - Meg Tavera PTA - 09/17/2024 11:56 AM EDT Physical Therapy Treatment Discharge Recommendations for Safe Patient Transition Discharge Recommendations: Post acute - moderate (vs home with family supervision) Post Acute Moderate Rehab Needs: Recommend moderate intensity rehab, Tolerate 1- 2 hrs of therapy 3-5 days/wk, Subacute or chronic functional impairment Current Impairments Informing Therapy Recommendation: Ambulation status/safety, Cognition, Fall risk, ADL status, Endurance level 6 Clicks: Basic Mobility Turning from your back to your side while in a flat bed without using bed rails?: None Moving from lying on your back to sitting on side of flat bed without using bed rails?: None Moving to and from bed to a chair (including w/c)?: A little Standing up from a chair using your arms (e.g. w/c or bedside chair)?: None To walk in hospital room?: A little Climbing 3-5 steps with a railing?: A little Scoring 6 Clicks: Basic Mobility Raw Score: 21 CMS G Code Modifier: CJ Therapy Plan PT Treatment/Interventions: Functional transfer training, LE strengthening/ROM, Endurance training,Cognitive reorientation, Patient/family training, Equipment eval/education, Balance, Bed mobility, Gait training, Functional activities, Neuromuscular reeducation PT Frequency: 5-6days/week PT Duration: LOS Assessment Patient Assessment Therapy Problem List: Decreased balance, Decreased cognition, Decreased high- level ADLs, Decreased mobility Patient Response to Treatment: Progressing toward goals Mood/Affect: Appropriate for circumstances Rehab Prognosis: Good, With continued PT status post acute discharge Visit RN Communication: Yes Medical Record Reviewed: Yes PT Type of Visit: Treatment Precautions Activity: ok for tx per RN Equipment: gait belt, alarms, IV, hylton catheter Telemetry/Director Professional Services: No Oxygen Order : MILLING SUPERVISOR Guidelines Oxygen Used: room air Other: fall risk, adm with AMS; alarms Pain Assessment Pain Assessment: No/denies pain Hearing / Speech / Vision Hearing: Within Functional Limits Speech: Within Functional Limits Current Vision: No visual deficits Cognition Overall Cognitive Status: Exceptions to Within Functional Limits Arousal/Alertness: Appropriate responses to stimuli Attention Span: Attends with cues to redirect Memory: Decreased recall of recent events, Decreased recall of precautions, Decreased immediate memory Orientation Level: Oriented X4 Following Commands: Follows one step commands consistently Safety Judgment: Decreased awareness of need for assistance, Decreased awareness of need for safety Awareness of Errors: Decreased awareness of errors Insight of Deficits: Decreased awareness of deficits Problem Solving: Assistance required to identify errors made, Assistance required to implement solutions Interfering Components: Attention to detail, Processing speed, Working memory Other: Pt hyperverbose, frequently repeats herself and asks repetetive questions, but oriented x4. Family reported to RN yesterday that this is baseline cognition for pt. Bed Mobility Rolling: Modified independent Supine to Sit: Modified independent Sit to Supine: Unable to assess Other: Pt in recliner at end of session. Feet supported, seat alalrm on. Call light, phone and traytable in reach. Transfers Sit to Stand: Modified independent Stand to Sit: Modified independent Stand Pivot Transfers: Standby assist (asisst to manage IV and catheter lines) Toilet Transfers: Standby assist Other: no use of AD, no unsteadiness or LOB Gait Base of Support: Within Functional Limits Pattern: Within Functional Limits Gait Assistance: Standby assist Assistive Device: None Gait Distance: ~300' 2 Turns: Yes (no LOB) Stoop and Recover: Yes, completed with stand by assist Other: gait training in room and hallway without use of AD, no LOB or unsteadiness Balance Sitting Balance: Static: Normal Sitting Balance: Dynamic: Good Standing Balance: Static: Good Standing Balance: Dynamic: Fair, Good Other: Able to don socks in sitting without LOB. Stood at sink with supervision for grooming tasks. Activity Tolerance Endurance: Tolerates 30 minutes activity with rest breaks Other: no rest breaks needed during session today Plan Physical Therapy Care Plan Physical Therapy Care Plan (Active) Template: PT - Physical Therapy Problem: Activity Tolerance Dates: Start: 09/14/24 Disciplines: PT Goal: No limitations to activity tolerance Dates: Start: 09/14/24 Expected End: 09/28/24 Description: Goal Description: Disciplines: PT Outcomes Date/Time User Outcome 09/17/24 Osvaldo Tavera PTA Progressing 09/16/24 Donnie Tavera PTA Progressing Problem: Bed Mobility Dates: Start: 09/14/24 Disciplines: PT Goal: Patient will perform bed mobility with Modified [place] Dates: Start: 09/14/24 Expected End: 09/28/24 Description: Goal Description: Disciplines: PT Outcomes Date/Time User Outcome 09/17/24 Osvaldo Tavera PTA Progressing Problem: Gait Dates: Start: 09/14/24 Disciplines: PT Goal: Patient will perform gait with Modified [place] Dates: Start: 09/14/24 Expected End: 09/28/24 Description: With_rw___,_150___feet Goal Description: good safety awareness with use of RW. Disciplines: PT Outcomes Date/Time User Outcome 09/17/24 Osvaldo Tavera PTA Progressing 09/16/24 Donnie Tavera PTA Progressing Problem: Sitting Balance Dates: Start: 09/14/24 Disciplines: PT Goal: Improve balance to good Dates: Start: 09/14/24 Expected End: 09/28/24 Description: Static Dynamic Disciplines: PT Outcomes Date/Time User Outcome 09/17/24 131Marla Meg Tavera PTA Progressing 09/16/24 101Les Tavera PTA Progressing Problem: Stairs/Curb Dates: Start: 09/14/24 Disciplines: PT Goal: Patient will perform stairs/curb with Modified [place] Dates: Start: 09/14/24 Expected End: 09/28/24 Description: ___FF_steps,_1-2____hand rails Goal Description: Disciplines: PT Problem: Standing Balance Dates: Start: 09/14/24 Disciplines: PT Goal: Improve balance to good Dates: Start: 09/14/24 Expected End: 09/28/24 Description: Static Dynamic Disciplines: PT Outcomes Date/Time User Outcome 09/17/24 131Marla Meg Tavera PTA Progressing 09/16/24 101Les Tavera PTA Progressing Problem: Transfers Dates: Start: 09/14/24 Disciplines: PT Goal: Patient will perform transfers with Modified [place] Dates: Start: 09/14/24 Expected End: 09/28/24 Description: Goal Description: Disciplines: PT Outcomes Date/Time User Outcome 09/17/24 JamieMarla Tavera PTA Progressing 09/16/24 101Les Tavera PTA Progressing Physical Therapy Care Plan (Resolved) There are no resolved problems. Principal Problem: Sepsis ([facility]) Cosigned by Juana Pedraza PT at 09/17/2024 1:40 PM EDT Associated attestation - Juana Pedraza PT - 09/17/2024 1:40 PM EDT I have reviewed and agree with this note and education documentation for this visit. * Plan of Care - Janki York RN - 09/16/2024 11:50 PM EDT Problem: Pain Goal: Patient goal is pain score less than 4, able to rest, and participant in treatment plan as appropriate Description: INTERVENTIONS: 1. Encourage patient or legal maintenance representative to report early pain and ask for pain medicine when needed 2. Assess pain using appropriate pain scale and include the scale used when documenting 3. Administer analgesics based on type and severity of pain and evaluate response within appropriate time frame 4. Implement non-pharmacological measures as appropriate and evaluate response 5. Consider cultural and social influences on pain and pain management 6. Notify LIP if interventions ineffective or patient reports new pain 7. Monitor vital signs including pulse ox, end-tidal CO2 based on pain intervention 8. Reassess pain per policy 9. Teach patient or legal maintenance representative interventions for comforting Outcome: Progressing Note: Evaluation of progress towards goal: Pt's pain evaluated per protocol. Pt educated on nonpharmacologic pain interventions. Pt informed of available PRNs. Pt pain level assessed with hourly rounds. Pt educated on different pain scales . Problem: Safety Goal: Patient will be injury free during hospitalization Description: INTERVENTIONS: 1. Assess patient's risk for falls and implement fall prevention plan of care per policy 2. Provide and maintain a safe environment 3. Proper use of double Identifiers 4. Medication administration using the 5 rights 5. Hand hygiene 6. Specimens are labeled at the bedside 7. Instruct patient/ patient maintenance representative about use of safety devices 8. Include patient/ patient maintenance representative in decisions related to safety Outcome: Progressing Note: Evaluation of progress towards goal: Safe environment maintained. Medications administered using 5 rights. Fall prevention plan implemented as needed. Problem: Infection Goal: Absence of infection during hospitalization Description: INTERVENTIONS 1. Assess and monitor for signs and symptoms of infection. 2. Monitor lab/diagnostic results. 3. Monitor all insertion sites i.e., indwelling lines, tubes and drains. 4. Monitor endotracheal (as able) and nasal secretions for changes in amount and color. 5. Administer medications as ordered. 6. Instruct and encourage patient and family to use good hand hygiene technique. 7. Identify and instruct patient/patient maintenance representative in use of appropriate isolation precautionsfor identified infection/symptoms. 8. Provide and discuss with patient/patient maintenance representative on educational MDRO sheet. 9. Encourage and monitor nutritional status daily and consult high school drafting teacher if indicated. 10. Implement neutropenic guidelines as needed. Outcome: Progressing Note: Evaluation of progress towards goal: Pt remains afebrile. Will continue to use good hand hygiene to prevent the spread of infection. Will continue to monitor pt's vital signs for any signs and symptoms of infection. Problem: Knowledge Deficit Goal: Patient/patient maintenance representative demonstrates understanding of disease process, treatment plan,medications, and discharge instructions Description: INTERVENTIONS 1. Complete learning assessment and assess knowledge base 2. Provide teaching at level of understanding 3. Provide teaching via preferred learning method(s) Outcome: Progressing Note: Evaluation of progress towards goal: Teaching provided as needed at patient's level of understanding. Problem: Discharge Planning Goal: Discharge to post-acute care, other facility, or home with appropriate resources Description: Patient's goal is: INTERVENTIONS 1. Conduct assessment to determine patient/family and health care team treatment goals, and need for post-acute services based on payer coverage, community resources, and patient preferences, and barriers to discharge 2. Coordinate with Social work, Care Navigation, and Utilization Review to arrange appropriate level of services according to patient's needs based on patient preference and payer coverage in collaboration with the physician and health care team 3. Address psychosocial, clinical, and financial barriers to discharge as identified in assessment in conjunction with the patient/family and health care team 4. Consult appropriate ancillary services (i.e.. PT/OT/ST, etc) as needed 5. Communicate with and update the patient/family, physician, and health care team regarding progress on the discharge plan 6. Identify discharge learning needs (meds, wound care, etc). 7. Arrange for needed discharge transportation as appropriate Outcome: Progressing Note: Evaluation of progress towards goal: Discharge planning continued with patient and multidisciplinary team members Problem: Moderate - High Risk Fall Score Description: Lew Fall Score of =/> 25 or indicated by [facility] Assessment Goal: Patient should be free from fall Description: Interventions: 1. [place] to environment 2. Hourly rounds addressing the 4 P's (Pain, Positioning, Possessions, Potty) 3. Clear area of hazards (spills, clutter, electrical cords, unnecessary equipment) 4. Place equipment (bed & TV controls, call light, phone, urinal) within reach 5. Encourage patient to wear glasses and hearing aides as appropriate 6. Maintain bed in lowest position 7. Lock wheels on bed/wheelchair 8. Provide adequate lighting, including night light 9. Assess need for additional bedding, food/fluids, pain med's prior to sleep/routinely 10. Provide gripper slippers or personal non-skid footwear 11. Teach patient and patient maintenance representative to maintain environment for safety and engage in all aspects of fall prevention program 12. Remind patient to call for help before getting out of bed 13. Initiate bed/chair/exit alarms supportive devices as appropriate, (chair wedge, no-skid floor mat, raised edge mattress, hip protectors) 14. Locate patient bed assignment for optimal visualization 15. Evaluate and identify Safe Patient Handling Equipment needs 16. Provide supervision when out of bed or chair 17. Utilize gait belt as needed to assist with ambulation 18. Place adaptive equipment (cane, walker) within reach 19. Request patient maintenance representative bring adaptive equipment/mobility aids from home or obtain and provide as needed 20. Consult pharmacy regarding effects of med's affecting mobility, cognition, and alternatives 21. Obtain physician order for PT if risk factors associated with mobility are present 22. Obtain physician order for OT as appropriate 23. Utilize diversional activities 24. Educate patient and patient maintenance representative how to maintain a safe environment during visitationtimes (notify nurse prior to leaving bedside) 25. Consider appropriateness of medical or non-nuclear medical technologist 26. Set up voiding schedule as appropriate (every 2 hours) Outcome: Progressing Note: Evaluation of progress towards goal: Pt remains free from falls while in the inpatient setting. Pt using the call light for needs and asking for help with needs. Bed low and locked and side rails up 2/4. Room free of clutter and nightlight on. Call light within reach and bed alarm on. * Plan of Care - Yamilet Simmons RN - 09/16/2024 12:47 PM EDT Problem: Pain Goal: Patient goal is pain score less than 4, able to rest, and participant in treatment plan as appropriate Description: INTERVENTIONS: 1. Encourage patient or legal maintenance representative to report early pain and ask for pain medicine when needed 2. Assess pain using appropriate pain scale and include the scale used when documenting 3. Administer analgesics based on type and severity of pain and evaluate response within appropriate time frame 4. Implement non-pharmacological measures as appropriate and evaluate response 5. Consider cultural and social influences on pain and pain management 6. Notify LIP if interventions ineffective or patient reports new pain 7. Monitor vital signs including pulse ox, end-tidal CO2 based on pain intervention 8. Reassess pain per policy 9. Teach patient or legal maintenance representative interventions for comforting Outcome: Progressing Note: Evaluation of progress towards goal: Patient able to verbalize pain using numeric pain scale 0-10. Patient remains at baseline level and states no pain present at this time. Patient is encouraged to express pain. RN continuing to assess patient's pain at a minimum of every 4 hours. Problem: Safety Goal: Patient will be injury free during hospitalization Description: INTERVENTIONS: 1. Assess patient's risk for falls and implement fall prevention plan of care per policy 2. Provide and maintain a safe environment 3. Proper use of double Identifiers 4. Medication administration using the 5 rights 5. Hand hygiene 6. Specimens are labeled at the bedside 7. Instruct patient/ patient maintenance representative about use of safety devices 8. Include patient/ patient maintenance representative in decisions related to safety Outcome: Progressing Note: Evaluation of progress towards goal: Patient has remained free from injury during hospitalization. Fall precautions in place, safe environment is maintained, RN use of double identifiers, RN using 5 patient rights with medication administration, and patient is involved in plan of care Problem: Infection Goal: Absence of infection during hospitalization Description: INTERVENTIONS 1. Assess and monitor for signs and symptoms of infection. 2. Monitor lab/diagnostic results. 3. Monitor all insertion sites i.e., indwelling lines, tubes and drains. 4. Monitor endotracheal (as able) and nasal secretions for changes in amount and color. 5. Administer medications as ordered. 6. Instruct and encourage patient and family to use good hand hygiene technique. 7. Identify and instruct patient/patient maintenance representative in use of appropriate isolation precautionsfor identified infection/symptoms. 8. Provide and discuss with patient/patient maintenance representative on educational MDRO sheet. 9. Encourage and monitor nutritional status daily and consult high school drafting teacher if indicated. 10. Implement neutropenic guidelines as needed. Outcome: Progressing Note: Evaluation of progress towards goal: Patient remains absent of hospital acquired infections. RN continuing to assess and monitor patient for s/s of infection, administering medications as ordered, assessing all lines/tubes/drains, encouraging pt to wash hands, and reviewing pt exposure to history of communicable disease Problem: Knowledge Deficit Goal: Patient/patient maintenance representative demonstrates understanding of disease process, treatment plan,medications, and discharge instructions Description: INTERVENTIONS 1. Complete learning assessment and assess knowledge base 2. Provide teaching at level of understanding 3. Provide teaching via preferred learning method(s) Outcome: Progressing Note: Evaluation of progress towards goal: Problem: Discharge Planning Goal: Discharge to post-acute care, other facility, or home with appropriate resources Description: Patient's goal is: INTERVENTIONS 1. Conduct assessment to determine patient/family and health care team treatment goals, and need for post-acute services based on payer coverage, community resources, and patient preferences, and barriers to discharge 2. Coordinate with Social work, Care Navigation, and Utilization Review to arrange appropriate level of services according to patient's needs based on patient preference and payer coverage in collaboration with the physician and health care team 3. Address psychosocial, clinical, and financial barriers to discharge as identified in assessment in conjunction with the patient/family and health care team 4. Consult appropriate ancillary services (i.e.. PT/OT/ST, etc) as needed 5. Communicate with and update the patient/family, physician, and health care team regarding progress on the discharge plan 6. Identify discharge learning needs (meds, wound care, etc). 7. Arrange for needed discharge transportation as appropriate Outcome: Progressing Note: Evaluation of progress towards goal: Problem: Moderate - High Risk Fall Score Description: Lew Fall Score of =/> 25 or indicated by [facility] Assessment Goal: Patient should be free from fall Description: Interventions: 1. [place] to environment 2. Hourly rounds addressing the 4 P's (Pain, Positioning, Possessions, Potty) 3. Clear area of hazards (spills, clutter, electrical cords, unnecessary equipment) 4. Place equipment (bed & TV controls, call light, phone, urinal) within reach 5. Encourage patient to wear glasses and hearing aides as appropriate 6. Maintain bed in lowest position 7. Lock wheels on bed/wheelchair 8. Provide adequate lighting, including night light 9. Assess need for additional bedding, food/fluids, pain med's prior to sleep/routinely 10. Provide gripper slippers or personal non-skid footwear 11. Teach patient and patient maintenance representative to maintain environment for safety and engage in all aspects of fall prevention program 12. Remind patient to call for help before getting out of bed 13. Initiate bed/chair/exit alarms supportive devices as appropriate, (chair wedge, no-skid floor mat, raised edge mattress, hip protectors) 14. Locate patient bed assignment for optimal visualization 15. Evaluate and identify Safe Patient Handling Equipment needs 16. Provide supervision when out of bed or chair 17. Utilize gait belt as needed to assist with ambulation 18. Place adaptive equipment (cane, walker) within reach 19. Request patient maintenance representative bring adaptive equipment/mobility aids from home or obtain and provide as needed 20. Consult pharmacy regarding effects of med's affecting mobility, cognition, and alternatives 21. Obtain physician order for PT if risk factors associated with mobility are present 22. Obtain physician order for OT as appropriate 23. Utilize diversional activities 24. Educate patient and patient maintenance representative how to maintain a safe environment during visitationtimes (notify nurse prior to leaving bedside) 25. Consider appropriateness of medical or non-nuclear medical technologist 26. Set up voiding schedule as appropriate (every 2 hours) Outcome: Progressing Note: Evaluation of progress towards goal: Patient has remained free from fall during hospital stay. Hourly rounds performed addressing pain, positioning, possessions, potty. Patient's room is clear of hazards, bed is in lowest position, wheels locked, adequate lighting provided in room, RN continuing to assess patient needs, nonskid socks are on, and RN continuing to teach the patient on fall prevention. Problem: Potential for Compromised Skin Integrity Goal: Skin integrity is maintained or improved Description: Patient's goal is: INTERVENTIONS 1. Perform initial skin assessment on admission and as needed 2. Turn patient every 2 hours and PRN 3. Relieve pressure to bony prominences 4. Avoid shearing 5. Keep skin clean and dry 6. Alternate a full bath with partial baths for elderly 7. Apply lotion/moisturizer on skin 8. Monitor patient's hygiene practices 9. Float heels 10. Collaborate with interdisciplinary team and initiate plans and interventions as needed Outcome: Progressing Note: Evaluation of progress towards goal: Goal: Patient's nutritional intake is adequate Description: Patient's goal is: INTERVENTIONS 1. Assess and monitor food intake and supplements, patient food preferences, nausea, vomiting, labs, oral cavity (gums, teeth, tongue, mucosa), proper denture fit, and cultural beliefs 2. Monitor for signs of hypoglycemia and hyperglycemia 3. Collaborate with interdisciplinary team and initiate plan and interventions as ordered 4. Monitor patient's weight 5. Assist patient with meals/food selection 6. Assist patient with eating 7. Allow adequate time for meals 8. Provide pleasant environment during mealtime 9. Increase social contact during mealtimes 10. Plan activities to conserve energy 11. Encourage/perform oral hygiene as appropriate 12. Encourage patient to take dietary supplement as ordered 13. Collaborate with clinical high school drafting teacher 14. Include patient/ patient's maintenance representative in decisions related to nutrition Outcome: Progressing Note: Evaluation of progress towards goal: Problem: Urinary Incontinence Goal: Perineal skin integrity is maintained or improved Description: INTERVENTIONS 1. Assess genitourinary system, perineal skin, labs (urinalysis), and history of incontinence to include past management, aggravating, and alleviating factors 2. Keep skin clean and dry 3. Apply skin protectant 4. Develop skin care regimen 5. Provide privacy when changing patients incontinence device to maintain their dignity 6. Consider placing an indwelling catheter 7. Collaborate with interdisciplinary team and initiate plans and interventions as needed Outcome: Progressing Note: Evaluation of progress towards goal: * Discharge Planning Note - Jacqueline Reynolds LCSW - 09/16/2024 12:23 PM EDT Ongoing Assessment for Discharge Needs Reviewed discharge milestones and patient needs related to discharge plan. Current estimated discharge date of Sep 17, 2024 has been reviewed by treatment team. SW reached out to pt's daughter. Confirmed that family does want to pursue SNF placement. [facility] Awaiting responses. Ongoing Assessment for Discharge Needs Flowsheet Row Most Recent Value Referral To Community Referrals / Resources Provided Denies needs Services Requested Patient expects to be discharged to: SNF Does the patient wish to have family/friend/caregiver involved in their discharge planning? Yes Does the patient plan to return home to a community setting? No, patient to discharge to facility-based provider. See Discharge Disposition Discharge Disposition SNF, Home with home health services Does the patient need discharge transportation arranged? Yes Transportation Arranged Ambulance Mobility issues discussed with transportation provider Yes Patient choice offered Yes List Provided Yes Financial Disclosure Provided for In-Network Referral No DC Planning Complete Discharge Milestones Yes - Jacqueline Reynolds LCSW 09/16/24 12:24 PM * PT/OT/PUBLIC HEALTH ENGINEER - Tonya Milian KIKE/Ruby - 09/16/2024 10:28 AM EDT Occupational Therapy Treatment Discharge Recommendations for Safe Patient Transition Discharge Recommendations: Post acute - moderate Post Acute Moderate Rehab Needs: Recommend moderate intensity rehab, Tolerate 1- 2 hrs of therapy 3-5 days/wk, Subacute or chronic functional impairment Current Impairments Informing Therapy Recommendation: Ambulation status/safety, Cognition, Fall risk, ADL status, Communication needs, Endurance level Therapy Plan 6 Clicks: Daily Activity Putting on and taking off regular lower body clothing?: A little Bathing (including washing, rinsing, drying)?: A little Toileting, which includes using toilet, bedpan or urinal?: A little Putting on and taking off regular upper body clothing?: A little Taking care of personal grooming such as brushing teeth?: A little Eating meals?: A little Scoring Daily Activity Raw Score: 18 CMS G Code Modifier: CK OT Treatment/Interventions: ADL retraining, Functional transfer training, UE strengthening/ROM, Endurance training, Patient/family training, Equipment eval/education, Balance, Home management, Compensatory technique education, Functional activities, Bed mobility OT Frequency: 5-6days/week OT Duration: LOS Assessment Patient Assessment Therapy Problem List: Decreased ADL status, Decreased balance, Decreased endurance, Decreased high-level ADLs, Decreased self-care trans, Decreased UE strength Patient Response to Treatment: Progressing toward goals Mood/Affect: Appropriate for circumstances Rehab Prognosis: Good, With continued OT status post acute discharge Visit RN Communication: Yes Medical Record Reviewed: Yes OT Type of Visit: Treatment Precautions Activity: OK per to see per RN Equipment: gait belt, alarms, IV, hylton catheter Telemetry/Director Professional Services: Yes Oxygen Order : MILLING SUPERVISOR guidelines Oxygen Used: room air Other: fall risk, adm with AMS Pain Assessment Pain Assessment: No/denies pain ADL / IADL Hand Dominance: Left Where Assessed: Standing at sink, At toilet Grooming Assistance: Standby assist Grooming Deficit: Supervision/safety, Increased time to complete Toilet/Commode Assistance: Standby assist Toilet/Commode Deficit: Supervison/safety, Verbal cueing, Increased time to complete, Grab bar use LE Dressing Assistance: Min assist (thread hylton) LE Dressing Deficit: Don/doff brief, Thread RLE into underwear, Thread LLE into underwear Other: increased time for ADLs, cues as needed. Home Management - IADL Other: increased time for ADLs, cues as needed. Hearing / Speech / Vision Hearing: Within Functional Limits Speech: Within Functional Limits Current Vision: No visual deficits Cognition Overall Cognitive Status: Exceptions to Within Functional Limits Arousal/Alertness: Appropriate responses to stimuli Attention Span: Attends with cues to redirect Memory: Decreased recall of recent events, Decreased recall of precautions Orientation Level: Oriented to person, Oriented to age, Oriented to place, Disoriented to month, Oriented to time Following Commands: Follows one step commands with increased time, Follows one step commands with repetition Safety Judgment: Decreased awareness of need for assistance, Decreased awareness of need for safety Awareness of Errors: Decreased awareness of errors Insight of Deficits: Decreased awareness of deficits Problem Solving: Assistance required to implement solutions, Reduced Interfering Components: Attention to detail, Processing speed, Working memory Other: per family pt cognition is baseline. Bed Mobility Other: Pt in recliner at session end with call light in reach and all needs met. alarm on. nursing updated. Transfers Sit to Stand: Standby assist Stand to Sit: Standby assist Toilet Transfers: Standby assist Other: pt completed using no AD. Gait Other: Pt completed functional mobility in pt room and into hallways household distances using no AD and CGA for safety. Balance Balance Evaluation: Exceptions to Functional Limits Sitting Balance: Static: Good Sitting Balance: Dynamic: Good Standing Balance: Static: Fair Standing Balance: Dynamic: Fair Other: No overt LOB, unsteady at times. Activity Tolerance Endurance: Tolerates 30 minutes activity with rest breaks Other: rest breaks taken as needed. Plan Occupational Therapy Care Plan Occupational Therapy Care Plan (Active) Template: OT - Occupational Therapy Problem: Activity Tolerance Dates: Start: 09/14/24 Disciplines: OT Goal: No limitations to activity tolerance Dates: Start: 09/14/24 Expected End: 09/28/24 Description: Goal Description: Disciplines: OT Outcomes Date/Time User Outcome 09/16/24 1009 MELINA Goss Progressing Goal Note filed on 09/16/24 1009 by MELINA Goss Evaluation of progress towards goal: Problem: Bed Mobility Dates: Start: 09/14/24 Disciplines: OT Goal: Patient will perform bed mobility with Modified [place] Dates: Start: 09/14/24 Expected End: 09/28/24 Description: Goal Description: Disciplines: OT Outcomes Date/Time User Outcome 09/16/24 1009 MELINA Goss Progressing Goal Note filed on 09/16/24 100 by MELINA Goss Evaluation of progress towards goal: Problem: Cognition Dates: Start: 09/14/24 Disciplines: OT Goal: Improve cognition Dates: Start: 09/14/24 Expected End: 09/28/24 Description: Pt will implement recall strategies into her routine to inc safety and IND in ADLs. Disciplines: OT Outcomes Date/Time User Outcome 09/16/24 1009 MELINA Goss Not Progressing Goal Note filed on 09/16/24 100 by MELINA Goss Evaluation of progress towards goal: Problem: Functional Mobility Dates: Start: 09/14/24 Disciplines: OT Goal: Patient will perform functional mobility with Modified [place] Dates: Start: 09/14/24 Expected End: 09/28/24 Description: Goal Description: Disciplines: OT Outcomes Date/Time User Outcome 09/16/24 1009 MELINA Goss Progressing Goal Note filed on 09/16/24 1009 by MELINA Goss Evaluation of progress towards goal: Problem: Other (Customize) Dates: Start: 09/14/24 Disciplines: OT Goal: Improve Dates: Start: 09/14/24 Expected End: 09/28/24 Description: Pt will complete all ADL at MOD I with use of DME / AE prn Disciplines: OT Outcomes Date/Time User Outcome 09/16/24 1009 MELINA Goss Progressing Goal Note filed on 09/16/24 1009 by MELINA Goss Evaluation of progress towards goal: Problem: Standing Balance Dates: Start: 09/14/24 Disciplines: OT Goal: Improve balance to good Dates: Start: 09/14/24 Expected End: 09/28/24 Description: Static Dynamic Disciplines: OT Outcomes Date/Time User Outcome 09/16/24 1009 MELINA Goss Progressing Goal Note filed on 09/16/24 1009 by MELINA Goss Evaluation of progress towards goal: Problem: Strength Dates: Start: 09/14/24 Disciplines: OT Goal: Improve strength Dates: Start: 09/14/24 Expected End: 09/28/24 Description: Pt will tolerate B UE HEP to inc overall strength to 5/5 to assist with ADL transfers. Disciplines: OT Problem: Transfers Dates: Start: 09/14/24 Disciplines: OT Goal: Patient will perform transfers with Modified [place] Dates: Start: 09/14/24 Expected End: 09/28/24 Description: Goal Description: Disciplines: OT Outcomes Date/Time User Outcome 09/16/24 1009 MELINA Goss Progressing Goal Note filed on 09/16/24 1009 by MELINA Goss Evaluation of progress towards goal: Occupational Therapy Care Plan (Resolved) There are no resolved problems. Principal Problem: Sepsis (CMS-HCC) Cosigned by HAKEEM Barron at 09/16/2024 10:41 AM EDT Associated attestation - Benita Daugherty OTR/L - 09/16/2024 10:41 AM EDT I have reviewed and agree with this note and education documentation for this visit. * PT/OT/PUBLIC HEALTH ENGINEER - Meg Tavera, IRAJ - 09/16/2024 9:37 AM EDT Physical Therapy Treatment Discharge Recommendations for Safe Patient Transition Discharge Recommendations: Post acute - moderate (vs home pending family's ability to provide assist) Post Acute Moderate Rehab Needs: Recommend moderate intensity rehab, Tolerate 1- 2 hrs of therapy 3-5 days/wk, Subacute or chronic functional impairment Current Impairments Informing Therapy Recommendation: Cognition, Fall risk, Ambulation status/safety 6 Clicks: Basic Mobility Turning from your back to your side while in a flat bed without using bed rails?: A little Moving from lying on your back to sitting on side of flat bed without using bed rails?: A little Moving to and from bed to a chair (including w/c)?: A little Standing up from a chair using your arms (e.g. w/c or bedside chair)?: A little To walk in hospital room?: A little Climbing 3-5 steps with a railing?: A little Scoring 6 Clicks: Basic Mobility Raw Score: 18 CMS G Code Modifier: CK Therapy Plan PT Treatment/Interventions: Functional transfer training, LE strengthening/ROM, Endurance training,Cognitive reorientation, Patient/family training, Equipment eval/education, Balance, Bed mobility, Gait training, Functional activities, Neuromuscular reeducation PT Frequency: 5-6days/week PT Duration: LOS Assessment Patient Assessment Therapy Problem List: Decreased balance, Decreased cognition, Decreased high- level ADLs, Decreased mobility Patient Response to Treatment: Progressing toward goals Mood/Affect: Appropriate for circumstances Rehab Prognosis: Good, With continued PT status post acute discharge Visit RN Communication: Yes Medical Record Reviewed: Yes PT Type of Visit: Treatment Precautions Activity: ok for tx per RN Equipment: gait belt, alarms, IV, hylton catheter Telemetry/Director Professional Services: Yes Oxygen Order : [facility] Guidelines Oxygen Used: room air Other: fall risk, adm with AMS; alarms Pain Assessment Pain Assessment: No/denies pain Hearing / Speech / Vision Hearing: Within Functional Limits Speech: Within Functional Limits Current Vision: No visual deficits Cognition Overall Cognitive Status: Exceptions to Within Functional Limits Arousal/Alertness: Appropriate responses to stimuli Attention Span: Attends with cues to redirect Memory: Decreased recall of recent events, Decreased recall of precautions Orientation Level: Oriented X4 Following Commands: Follows one step commands with repetition Safety Judgment: Decreased awareness of need for assistance, Decreased awareness of need for safety Awareness of Errors: Decreased awareness of errors Insight of Deficits: Decreased awareness of deficits Problem Solving: Assistance required to identify errors made, Assistance required to implement solutions Interfering Components: Attention to detail, Processing speed, Working memory Other: Pt hyperverbose, frequently repeats herself and asks repetetive questions, but oriented x4. Bed Mobility Other: Bed mobility not observed, pt in bathroom with nursing staff at start of session and in recliner at end. Feet supported, seat alalrm on. Call light, phone and tray table in reach.RN updated. Transfers Sit to Stand: Standby assist Stand to Sit: Standby assist Stand Pivot Transfers: Standby assist (asisst to manage IV and catheter lines) Toilet Transfers: Standby assist Other: no use of AD, no unsteadiness or LOB Gait Base of Support: Within Functional Limits Pattern: Within Functional Limits Gait Assistance: Contact guard assist Assistive Device: None Gait Distance: ~300' 2 Turns: Yes (no LOB) Other: gait training in room and hallway without use of AD, CG for safety, no LOB, but mild unsteadiness at times due to distractability Balance Sitting Balance: Static: Normal Sitting Balance: Dynamic: Good Standing Balance: Static: Good Standing Balance: Dynamic: Fair, Good Other: Pt stood at sink for several minutes for grooming and hygiene tasks with SBA, no LOB. Able to walk in hallway without AD with no overt LOB. Activity Tolerance Endurance: Tolerates 30 minutes activity with rest breaks Plan Physical Therapy Care Plan Physical Therapy Care Plan (Active) Template: PT - Physical Therapy Problem: Activity Tolerance Dates: Start: 09/14/24 Disciplines: PT Goal: No limitations to activity tolerance Dates: Start: 09/14/24 Expected End: 09/28/24 Description: Goal Description: Disciplines: PT Outcomes Date/Time User Outcome 09/16/24 Donnie Tavera PTA Progressing Problem: Bed Mobility Dates: Start: 09/14/24 Disciplines: PT Goal: Patient will perform bed mobility with Modified [place] Dates: Start: 09/14/24 Expected End: 09/28/24 Description: Goal Description: Disciplines: PT Problem: Gait Dates: Start: 09/14/24 Disciplines: PT Goal: Patient will perform gait with Modified [place] Dates: Start: 09/14/24 Expected End: 09/28/24 Description: With_rw___,_150___feet Goal Description: good safety awareness with use of RW. Disciplines: PT Outcomes Date/Time User Outcome 09/16/24 Donnie Tavera PTA Progressing Problem: Sitting Balance Dates: Start: 09/14/24 Disciplines: PT Goal: Improve balance to good Dates: Start: 09/14/24 Expected End: 09/28/24 Description: Static Dynamic Disciplines: PT Outcomes Date/Time User Outcome 09/16/24 Donnie Tavera PTA Progressing Problem: Stairs/Curb Dates: Start: 09/14/24 Disciplines: PT Goal: Patient will perform stairs/curb with Modified [place] Dates: Start: 09/14/24 Expected End: 09/28/24 Description: ___FF_steps,_1-2____hand rails Goal Description: Disciplines: PT Problem: Standing Balance Dates: Start: 09/14/24 Disciplines: PT Goal: Improve balance to good Dates: Start: 09/14/24 Expected End: 09/28/24 Description: Static Dynamic Disciplines: PT Outcomes Date/Time User Outcome 09/16/24 1019 Meg Tavera PTA Progressing Problem: Transfers Dates: Start: 09/14/24 Disciplines: PT Goal: Patient will perform transfers with Modified [place] Dates: Start: 09/14/24 Expected End: 09/28/24 Description: Goal Description: Disciplines: PT Outcomes Date/Time User Outcome 09/16/24 1019 Meg Tavera PTA Progressing Physical Therapy Care Plan (Resolved) There are no resolved problems. Principal Problem: Sepsis ([facility]-HCC) Cosigned by Juana Cruz PT at 09/16/2024 11:11 AM EDT Associated attestation - Juana Cruz PT - 09/16/2024 11:11 AM EDT I have reviewed and agree with this note and education documentation for this visit. * Plan of Care - Janki York RN - 09/15/2024 10:27 PM EDT Problem: Pain Goal: Patient goal is pain score less than 4, able to rest, and participant in treatment plan as appropriate Description: INTERVENTIONS: 1. Encourage patient or legal maintenance representative to report early pain and ask for pain medicine when needed 2. Assess pain using appropriate pain scale and include the scale used when documenting 3. Administer analgesics based on type and severity of pain and evaluate response within appropriate time frame 4. Implement non-pharmacological measures as appropriate and evaluate response 5. Consider cultural and social influences on pain and pain management 6. Notify LIP if interventions ineffective or patient reports new pain 7. Monitor vital signs including pulse ox, end-tidal CO2 based on pain intervention 8. Reassess pain per policy 9. Teach patient or legal maintenance representative interventions for comforting Outcome: Progressing Note: Evaluation of progress towards goal: Pt's pain evaluated per protocol. Pt educated on nonpharmacologic pain interventions. Pt informed of available PRNs. Pt pain level assessed with hourly rounds. Pt educated on different pain scales . Problem: Safety Goal: Patient will be injury free during hospitalization Description: INTERVENTIONS: 1. Assess patient's risk for falls and implement fall prevention plan of care per policy 2. Provide and maintain a safe environment 3. Proper use of double Identifiers 4. Medication administration using the 5 rights 5. Hand hygiene 6. Specimens are labeled at the bedside 7. Instruct patient/ patient maintenance representative about use of safety devices 8. Include patient/ patient maintenance representative in decisions related to safety Outcome: Progressing Note: Evaluation of progress towards goal: Safe environment maintained. Medications administered using 5 rights. Fall prevention plan implemented as needed. Problem: Infection Goal: Absence of infection during hospitalization Description: INTERVENTIONS 1. Assess and monitor for signs and symptoms of infection. 2. Monitor lab/diagnostic results. 3. Monitor all insertion sites i.e., indwelling lines, tubes and drains. 4. Monitor endotracheal (as able) and nasal secretions for changes in amount and color. 5. Administer medications as ordered. 6. Instruct and encourage patient and family to use good hand hygiene technique. 7. Identify and instruct patient/patient maintenance representative in use of appropriate isolation precautionsfor identified infection/symptoms. 8. Provide and discuss with patient/patient maintenance representative on educational MDRO sheet. 9. Encourage and monitor nutritional status daily and consult high school drafting teacher if indicated. 10. Implement neutropenic guidelines as needed. Outcome: Progressing Note: Evaluation of progress towards goal: Pt remains afebrile. Will continue to use good hand hygiene to prevent the spread of infection. Will continue to monitor pt's vital signs for any signs and symptoms of infection. Problem: Knowledge Deficit Goal: Patient/patient maintenance representative demonstrates understanding of disease process, treatment plan,medications, and discharge instructions Description: INTERVENTIONS 1. Complete learning assessment and assess knowledge base 2. Provide teaching at level of understanding 3. Provide teaching via preferred learning method(s) Outcome: Progressing Note: Evaluation of progress towards goal: Teaching provided as needed at patient's level of understanding. Problem: Discharge Planning Goal: Discharge to post-acute care, other facility, or home with appropriate resources Description: Patient's goal is: INTERVENTIONS 1. Conduct assessment to determine patient/family and health care team treatment goals, and need for post-acute services based on payer coverage, community resources, and patient preferences, and barriers to discharge 2. Coordinate with Social work, Care Navigation, and Utilization Review to arrange appropriate level of services according to patient's needs based on patient preference and payer coverage in collaboration with the physician and health care team 3. Address psychosocial, clinical, and financial barriers to discharge as identified in assessment in conjunction with the patient/family and health care team 4. Consult appropriate ancillary services (i.e.. PT/OT/ST, etc) as needed 5. Communicate with and update the patient/family, physician, and health care team regarding progress on the discharge plan 6. Identify discharge learning needs (meds, wound care, etc). 7. Arrange for needed discharge transportation as appropriate Outcome: Progressing Note: Evaluation of progress towards goal: Discharge planning continued with patient and multidisciplinary team members Problem: Moderate - High Risk Fall Score Description: Lew Fall Score of =/> 25 or indicated by [facility] Assessment Goal: Patient should be free from fall Description: Interventions: 1. [place] to environment 2. Hourly rounds addressing the 4 P's (Pain, Positioning, Possessions, Potty) 3. Clear area of hazards (spills, clutter, electrical cords, unnecessary equipment) 4. Place equipment (bed & TV controls, call light, phone, urinal) within reach 5. Encourage patient to wear glasses and hearing aides as appropriate 6. Maintain bed in lowest position 7. Lock wheels on bed/wheelchair 8. Provide adequate lighting, including night light 9. Assess need for additional bedding, food/fluids, pain med's prior to sleep/routinely 10. Provide gripper slippers or personal non-skid footwear 11. Teach patient and patient maintenance representative to maintain environment for safety and engage in all aspects of fall prevention program 12. Remind patient to call for help before getting out of bed 13. Initiate bed/chair/exit alarms supportive devices as appropriate, (chair wedge, no-skid floor mat, raised edge mattress, hip protectors) 14. Locate patient bed assignment for optimal visualization 15. Evaluate and identify Safe Patient Handling Equipment needs 16. Provide supervision when out of bed or chair 17. Utilize gait belt as needed to assist with ambulation 18. Place adaptive equipment (cane, walker) within reach 19. Request patient maintenance representative bring adaptive equipment/mobility aids from home or obtain and provide as needed 20. Consult pharmacy regarding effects of med's affecting mobility, cognition, and alternatives 21. Obtain physician order for PT if risk factors associated with mobility are present 22. Obtain physician order for OT as appropriate 23. Utilize diversional activities 24. Educate patient and patient maintenance representative how to maintain a safe environment during visitationtimes (notify nurse prior to leaving bedside) 25. Consider appropriateness of medical or non-nuclear medical technologist 26. Set up voiding schedule as appropriate (every 2 hours) Outcome: Progressing Note: Evaluation of progress towards goal: Pt remains free from falls while in the inpatient setting. Pt using the call light for needs and asking for help with needs. Bed low and locked and side rails up 2/4. Room free of clutter and nightlight on. Call light within reach and bed alarm on. Problem: Potential for Compromised Skin Integrity Goal: Skin integrity is maintained or improved Description: Patient's goal is: INTERVENTIONS 1. Perform initial skin assessment on admission and as needed 2. Turn patient every 2 hours and PRN 3. Relieve pressure to bony prominences 4. Avoid shearing 5. Keep skin clean and dry 6. Alternate a full bath with partial baths for elderly 7. Apply lotion/moisturizer on skin 8. Monitor patient's hygiene practices 9. Float heels 10. Collaborate with interdisciplinary team and initiate plans and interventions as needed Outcome: Progressing Note: Evaluation of progress towards goal: Pt can reposition self and self regulate bed controls. * Plan of Care - Jacqueline Milligan RN - 09/15/2024 12:40 AM EDT Problem: Pain Goal: Patient goal is pain score less than 4, able to rest, and participant in treatment plan as appropriate Description: INTERVENTIONS: 1. Encourage patient or legal maintenance representative to report early pain and ask for pain medicine when needed 2. Assess pain using appropriate pain scale and include the scale used when documenting 3. Administer analgesics based on type and severity of pain and evaluate response within appropriate time frame 4. Implement non-pharmacological measures as appropriate and evaluate response 5. Consider cultural and social influences on pain and pain management 6. Notify LIP if interventions ineffective or patient reports new pain 7. Monitor vital signs including pulse ox, end-tidal CO2 based on pain intervention 8. Reassess pain per policy 9. Teach patient or legal maintenance representative interventions for comforting Outcome: Progressing Note: Evaluation of progress towards goal: Pt assessed for pain q4h and with rounding, using numerical scale. PRN analgesics available for Tx of reported pain. PRN analgesics administered on shift. Pt able to rest on shift. Problem: Safety Goal: Patient will be injury free during hospitalization Description: INTERVENTIONS: 1. Assess patient's risk for falls and implement fall prevention plan of care per policy 2. Provide and maintain a safe environment 3. Proper use of double Identifiers 4. Medication administration using the 5 rights 5. Hand hygiene 6. Specimens are labeled at the bedside 7. Instruct patient/ patient maintenance representative about use of safety devices 8. Include patient/ patient maintenance representative in decisions related to safety Outcome: Progressing Note: Evaluation of progress towards goal: Pt remains free from injury for current hospitalization.Fall and aspiration precautions in place, maintained. Safety equipment at bedside and on unit. Problem: Infection Goal: Absence of infection during hospitalization Description: INTERVENTIONS 1. Assess and monitor for signs and symptoms of infection. 2. Monitor lab/diagnostic results. 3. Monitor all insertion sites i.e., indwelling lines, tubes and drains. 4. Monitor endotracheal (as able) and nasal secretions for changes in amount and color. 5. Administer medications as ordered. 6. Instruct and encourage patient and family to use good hand hygiene technique. 7. Identify and instruct patient/patient maintenance representative in use of appropriate isolation precautionsfor identified infection/symptoms. 8. Provide and discuss with patient/patient maintenance representative on educational MDRO sheet. 9. Encourage and monitor nutritional status daily and consult high school drafting teacher if indicated. 10. Implement neutropenic guidelines as needed. Outcome: Progressing Note: Evaluation of progress towards goal: Pt remains afebrile for shift. Infection prevention strategies utilized, standard precautions maintained. Pt receiving IV Zosyn for ABX. Problem: Moderate - High Risk Fall Score Description: Lew Fall Score of =/> 25 or indicated by [facility] Assessment Goal: Patient should be free from fall Description: Interventions: 1. [place] to environment 2. Hourly rounds addressing the 4 P's (Pain, Positioning, Possessions, Potty) 3. Clear area of hazards (spills, clutter, electrical cords, unnecessary equipment) 4. Place equipment (bed & TV controls, call light, phone, urinal) within reach 5. Encourage patient to wear glasses and hearing aides as appropriate 6. Maintain bed in lowest position 7. Lock wheels on bed/wheelchair 8. Provide adequate lighting, including night light 9. Assess need for additional bedding, food/fluids, pain med's prior to sleep/routinely 10. Provide gripper slippers or personal non-skid footwear 11. Teach patient and patient maintenance representative to maintain environment for safety and engage in all aspects of fall prevention program 12. Remind patient to call for help before getting out of bed 13. Initiate bed/chair/exit alarms supportive devices as appropriate, (chair wedge, no-skid floor mat, raised edge mattress, hip protectors) 14. Locate patient bed assignment for optimal visualization 15. Evaluate and identify Safe Patient Handling Equipment needs 16. Provide supervision when out of bed or chair 17. Utilize gait belt as needed to assist with ambulation 18. Place adaptive equipment (cane, walker) within reach 19. Request patient maintenance representative bring adaptive equipment/mobility aids from home or obtain and provide as needed 20. Consult pharmacy regarding effects of med's affecting mobility, cognition, and alternatives 21. Obtain physician order for PT if risk factors associated with mobility are present 22. Obtain physician order for OT as appropriate 23. Utilize diversional activities 24. Educate patient and patient maintenance representative how to maintain a safe environment during visitationtimes (notify nurse prior to leaving bedside) 25. Consider appropriateness of medical or non-nuclear medical technologist 26. Set up voiding schedule as appropriate (every 2 hours) Outcome: Progressing Note: Evaluation of progress towards goal: Pt remains free from fall for current hospitalization. Fall precautions in place, maintained. Problem: Urinary Incontinence Goal: Perineal skin integrity is maintained or improved Description: INTERVENTIONS 1. Assess genitourinary system, perineal skin, labs (urinalysis), and history of incontinence to include past management, aggravating, and alleviating factors 2. Keep skin clean and dry 3. Apply skin protectant 4. Develop skin care regimen 5. Provide privacy when changing patients incontinence device to maintain their dignity 6. Consider placing an indwelling catheter 7. Collaborate with interdisciplinary team and initiate plans and interventions as needed Outcome: Progressing Note: Evaluation of progress towards goal: Pt declined bed bath for shift. Karime- care completed as needed with voiding. Hylton care completed on shift. * PT/OT/PUBLIC HEALTH ENGINEER - Nicolasa High, PT - 09/14/2024 2:35 PM EDT Physical Therapy Evaluation Discharge Recommendations for Safe Patient Transition Discharge Recommendations: Post acute - moderate Post Acute Moderate Rehab Needs: Recommend moderate intensity rehab, Tolerate 1- 2 hrs of therapy 3-5 days/wk, Subacute or chronic functional impairment Current Impairments Informing Therapy Recommendation: Ambulation status/safety, Cognition, Fall risk, ADL status, Endurance level 6 Clicks: Basic Mobility Turning from your back to your side while in a flat bed without using bed rails?: A little Moving from lying on your back to sitting on side of flat bed without using bed rails?: A little Moving to and from bed to a chair (including w/c)?: A little Standing up from a chair using your arms (e.g. w/c or bedside chair)?: A little To walk in hospital room?: A little Climbing 3-5 steps with a railing?: A lot Scoring 6 Clicks: Basic Mobility Raw Score: 17 CMS G Code Modifier: CK Therapy Plan Need for skilled Physical Therapy to address deficits in functional mobility due to a status decline resulting from adm initially on 09/12/2024 to [place] ED, with c/o AMS. EMS also reports on arrivalpt was cold & mottled from waist down. Pt c/o back pain; no palpable or doppler pulses in B LE. WBC 33.2, HGB 11.0, Na 122, K 5.3, carbon dioxide 8, creatinine 3.51, BUN 118, magnesium 3.1, troponin 12->13, and procalcitonin 3.48. Lactate 2.3. UA positive for glucose, blood and protein. CT Brain: (-) CTA Chest: (-) CT A/P: no aortic aneurysm or dissection, severe arthrosclerotic changes, patchy enhancement of thekidneys, a hydropic gallbladder and prominent extrahepatic biliary tree. US abdomen: distended gallbladder with small amount of gallbladder sludge and biliary ductal dilatation. Adm 05/07/24 to 05/18/24 after being found with a complete heart block and STEMI, urgently taken to the section laborer-s/p GARETT to pLAD and PCI of OM. ECHO revealed EF of 20-25% on 3/29/25. Past Medical History: Diagnosis Date Asthma Asthma Back pain Cervical disc disorder CHB (complete heart block) (CMS-HCC) 05/07/2024 HTN (hypertension) Hx of scabies Low back pain Lumbosacral disc disease Neck pain Osteoarthritis TMJ (temporomandibular joint syndrome) Past Surgical History: Procedure Laterality Date Cardiac Invasive N/A 05/09/2024 Performed by Gilberto Zepeda MD at [facility] Cardiac Invasive-cors N/A 05/07/2024 Performed by Gilberto Zepeda MD at [facility] SECTION SECTION 1980,,, INJECTION MEDIAL BRANCH NERVE BLOCK: left C34 45 56 Left 03/16/2018 Performed by Manav Rosario MD at [facility] INJECTION MEDIAL BRANCH NERVE BLOCK: left c34 45 56 Left 02/12/2018 Performed by Manav Rosario MD at [facility] INJECTION MEDIAL BRANCH NERVE BLOCK: right C34 45 56 Right 09/14/2018 Performed by Manav Rosario MD at [facility] INJECTION MEDIAL BRANCH NERVE BLOCK: right C34 45 56mbb Right 07/23/2018 Performed by Manav Rosario MD at [facility] Insert/replace temporary single lead pacemaker N/A 05/07/2024 Performed by Gilberto Zepeda MD at [facility] Intravascular ultrasound initial vessel N/A 05/07/2024 Performed by Gilberto Zepeda MD at [facility] ORTHOPEDIC SURGERY Percutaneous coronary intervention N/A 05/07/2024 Performed by Gilebrto Zepeda MD at [facility] Percutaneous coronary intervention of OM N/A 05/09/2024 Performed by Gilberto Zepeda MD at [facility] RADIO FREQUENCY ABLATION Right C 3/4, 4/5, 5/6 Right 11/15/2019 Performed by Manav Rosario MD at [facility] RADIO FREQUENCY ABLATION: left C34 45 56rfa Left 04/30/2018 Performed by Manav Rosario MD at [facility] RADIOFREQUENCY ABLATION SPINAL: Right C 4/5 5/6 Left 07/08/2022 Performed by Manav Rosario MD at [facility] RADIOFREQUENCY ABLATION SPINAL: right C 4/5 5/6 Right 07/29/2022 Performed by Manav Rosario MD at [facility] Revascularization/drug eluting stent/ left anterior descending N/A 05/07/2024 Performed by Gilberto Zepeda MD at [facility] ROTATOR CUFF REPAIR Left Stent drug-eluting/ left circumflex N/A 05/09/2024 Performed by Gilberto Zepeda MD at [facility] TONSILLECTOMY 1970 PT Treatment/Interventions: Functional transfer training, LE strengthening/ROM, Endurance training,Cognitive reorientation, Patient/family training, Equipment eval/education, Balance, Bed mobility, Gait training, Functional activities, Neuromuscular reeducation PT Frequency: 5-6days/week PT Duration: LOS Assessment Patient Assessment Therapy Problem List: Decreased ADL status, Decreased balance, Decreased endurance, Decreased high-level ADLs, Decreased self-care trans, Decreased UE strength Patient Response to Treatment: Tolerated evaluation without adverse reaction Mood/Affect: Appropriate for circumstances (pleasantly confused) Rehab Prognosis: Good, With continued PT status post acute discharge Visit RN Communication: Yes Medical Record Reviewed: Yes PT Type of Visit: Evaluation Precautions Activity: OK per RN for PT eval Equipment: RW, gait belt, alarms, IV, hylton catheter Telemetry/Director Professional Services: Yes Oxygen Order : MILLING SUPERVISOR guidelines Oxygen Used: room air Other: fall risk, adm with AMS Subjective Physical Therapy Comments: I need to go to bathroom Pain Assessment Pain Assessment: 0-10 Pain Score: 6 Observed Behavior: Calm Pain Location: Neck Pain Intervention(s): Repositioned (TN gave IV pain medication) Response to Interventions: Quiet Pain 2 Observed Behavior: Calm Home Living Type of Home: House Home Layout: Two level (bedroom on main, bathroom on 2nd level) Stairs to Enter: 2 Hand Rails: Left Stairs in Home: FF to second level with full bathroom Hand Rails in Home: Left Bathroom Shower/Tub: Tub/shower unit Bathroom Toilet: Standard Bathroom Equipment: (none) Home Equipment: (none) Other : pt did not use AD for mobility, no falls reported, pt is ? 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 historian ADL / IADL Hand Dominance: Left Hearing / Speech / Vision Hearing: Within Functional Limits Speech: Within Functional Limits Current Vision: No visual deficits Cognition Overall Cognitive Status: Exceptions to Within Functional Limits Arousal/Alertness: Appropriate responses to stimuli Attention Span: Attends with cues to redirect Memory: Decreased recall of recent events, Decreased recall of precautions Orientation Level: Oriented to time, Disoriented to month, Disoriented to place, Oriented to person, Disoriented to situation Following Commands: Follows one step commands with increased time, Follows one step commands with repetition Safety Judgment: Decreased awareness of need for assistance, Decreased awareness of need for safety Awareness of Errors: Decreased awareness of errors Insight of Deficits: Decreased awareness of deficits Problem Solving: Assistance required to implement solutions, Reduced Interfering Components: Attention to detail, Processing speed, Working memory Other: pt knew the year, did not know the month, pt kept asking where are we , perseverating/repeated Q about use of bathroom, pt seeing one bug on the floor.. Sensation Overall Sensation Status: Within Functional Limits Bed Mobility Rolling: Stand by assist Supine to Sit: Stand by assist Sit to Supine: Unable to assess Other: pt left up in chair with call light at hand, alarms on, RN aware. Transfers Sit to Stand: Contact guard assist Stand to Sit: Contact guard assist Bed to Chair: Contact guard assist Other: vvc for hand placement with use ofRW Gait Base of Support: Within Functional Limits Pattern: Decreased leydi Gait Assistance: Contact guard assist Assistive Device: Rolling walker Gait Distance: 12'x2 Limiting Factors to Gait: Decreased safety, Cognition/difficulty following directions, Fatigue 2 Turns: Yes Stair Management Assistance: Unable to assess (with pt c/o fatigue.) Other: dec safety awareness with use of RW with pt abandoning RW with transfers/turning, consistentassist with same. pt declined to amb in halls. Balance Sitting Balance: Static: Good Sitting Balance: Dynamic: Good Standing Balance: Static: Fair Standing Balance: Dynamic: Fair RUE Assessment: Within Functional Limits LUE Assessment: Within Functional Limits RLE Assessment: Within Functional Limits LLE Assessment: Within Functional Limits Activity Tolerance Endurance: Tolerates 30 minutes activity with rest breaks Plan Physical Therapy Care Plan Physical Therapy Care Plan (Active) Template: PT - Physical Therapy Problem: Activity Tolerance Dates: Start: 09/14/24 Disciplines: PT Goal: No limitations to activity tolerance Dates: Start: 09/14/24 Expected End: 09/28/24 Description: Goal Description: Disciplines: PT Problem: Bed Mobility Dates: Start: 09/14/24 Disciplines: PT Goal: Patient will perform bed mobility with Modified [place] Dates: Start: 09/14/24 Expected End: 09/28/24 Description: Goal Description: Disciplines: PT Problem: Gait Dates: Start: 09/14/24 Disciplines: PT Goal: Patient will perform gait with Modified [place] Dates: Start: 09/14/24 Expected End: 09/28/24 Description: With_rw___,_150___feet Goal Description: good safety awareness with use of RW. Disciplines: PT Problem: Sitting Balance Dates: Start: 09/14/24 Disciplines: PT Goal: Improve balance to good Dates: Start: 09/14/24 Expected End: 09/28/24 Description: Static Dynamic Disciplines: PT Problem: Stairs/Curb Dates: Start: 09/14/24 Disciplines: PT Goal: Patient will perform stairs/curb with Modified [place] Dates: Start: 09/14/24 Expected End: 09/28/24 Description: ___FF_steps,_1-2____hand rails Goal Description: Disciplines: PT Problem: Standing Balance Dates: Start: 09/14/24 Disciplines: PT Goal: Improve balance to good Dates: Start: 09/14/24 Expected End: 09/28/24 Description: Static Dynamic Disciplines: PT Problem: Transfers Dates: Start: 09/14/24 Disciplines: PT Goal: Patient will perform transfers with Modified [place] Dates: Start: 09/14/24 Expected End: 09/28/24 Description: Goal Description: Disciplines: PT Physical Therapy Care Plan (Resolved) There are no resolved problems. Principal Problem: Sepsis (CMS-HCC) * PT/OT/PUBLIC HEALTH ENGINEER - yM Vázquez OTR/L - 09/14/2024 2:28 PM EDT Occupational Therapy Evaluation Discharge Recommendations for Safe Patient Transition Discharge Recommendations: Post acute - moderate Post Acute Moderate Rehab Needs: Recommend moderate intensity rehab, Tolerate 1- 2 hrs of therapy 3-5 days/wk, Subacute or chronic functional impairment Current Impairments Informing Therapy Recommendation: ADL status, Endurance level, Ambulation status/safety 6 Clicks: Daily Activity Putting on and taking off regular lower body clothing?: A little Bathing (including washing, rinsing, drying)?: A lot Toileting, which includes using toilet, bedpan or urinal?: A lot Putting on and taking off regular upper body clothing?: A little Taking care of personal grooming such as brushing teeth?: A little Eating meals?: A little Scoring Daily Activity Raw Score: 16 CMS G Code Modifier: CK Therapy Plan Need for skilled Occupational Therapy to address deficits in ADL independence and functional mobility due to a status decline resulting from hospital admission 414 - Hospital admission on 09/12/2024 to [place] ED, with c/o AMS. EMS also reports on arrival pt was cold & mottled from waist down. Pt c/o back pain; no palpable or doppler pulses in B LE. Work up in ED: WBC 33.2, HGB 11.0, Na 122, K 5.3, carbon dioxide 8, creatinine 3.51, BUN 118, magnesium 3.1, troponin 12->13, and procalcitonin 3.48. Lactate 2.3. UA positive for glucose, blood and protein. CT Brain: (-) CTA Chest: (-) CT A/P: no aortic aneurysm or dissection, severe arthrosclerotic changes, patchy enhancement of thekidneys, a hydropic gallbladder and prominent extrahepatic biliary tree. US abdomen showed a distended gallbladder with small amount of gallbladder sludge and biliary ductal dilatation. Pt admitted 05/07/24 to 05/18/24 after being found with a complete heart block and STEMI. She was urgently taken to the section laborer and is s/p GARETT to pLAD and PCI of OM. ECHO revealed EF of 20-25% on 05/11/24. Patient was discharged to [facility]. 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 She followed up with cardiology on 06/17/24 and was noted to have taken her LifeVest offdue to concerns of it not working. Gen Sx; CT imaging consistent with diverticulitis with abscess - encourage IS, ambulation Nephrology following. Vascular Sx; no significant vascular disease - signed off Pt's occupational profile noted throughout; now presents to OT for evaluation and treatment. Past Medical History: Diagnosis Date Asthma Asthma Back pain Cervical disc disorder CHB (complete heart block) (CMS-HCC) 05/07/2024 HTN (hypertension) Hx of scabies Low back pain Lumbosacral disc disease Neck pain Osteoarthritis TMJ (temporomandibular joint syndrome) Past Surgical History: Procedure Laterality Date Cardiac Invasive N/A 05/09/2024 Performed by Gilberto Zepeda MD at [facility] Cardiac Invasive-cors N/A 05/07/2024 Performed by Gilberto Zepeda MD at [facility] SECTION SECTION 1980,,, INJECTION MEDIAL BRANCH NERVE BLOCK: left C34 45 56 Left 03/16/2018 Performed by Manav Rosario MD at [facility] INJECTION MEDIAL BRANCH NERVE BLOCK: left c34 45 56 Left 02/12/2018 Performed by Manav Rosario MD at [facility] INJECTION MEDIAL BRANCH NERVE BLOCK: right C34 45 56 Right 09/14/2018 Performed by Manav Rosario MD at [facility] INJECTION MEDIAL BRANCH NERVE BLOCK: right C34 45 56mbb Right 07/23/2018 Performed by aMnav Rosario MD at [facility] Insert/replace temporary single lead pacemaker N/A 05/07/2024 Performed by Gilberto Zepeda MD at [facility] Intravascular ultrasound initial vessel N/A 05/07/2024 Performed by Gilberto Zepeda MD at [facility] ORTHOPEDIC SURGERY Percutaneous coronary intervention N/A 05/07/2024 Performed by Gilberto Zepeda MD at [facility] Percutaneous coronary intervention of OM N/A 05/09/2024 Performed by Gilberto Zepeda MD at [facility] RADIO FREQUENCY ABLATION Right C 3/4, 4/5, 5/6 Right 11/15/2019 Performed by Manav Rosario MD at [facility] RADIO FREQUENCY ABLATION: left C34 45 56rfa Left 04/30/2018 Performed by Manav Rosario MD at [facility] RADIOFREQUENCY ABLATION SPINAL: Right C 4/5 5/6 Left 07/08/2022 Performed by Manav Rosario MD at [facility] RADIOFREQUENCY ABLATION SPINAL: right C 4/5 5/6 Right 07/29/2022 Performed by Manav Rosario MD at [facility] Revascularization/drug eluting stent/ left anterior descending N/A 05/07/2024 Performed by Gilberto Zepeda MD at [facility] ROTATOR CUFF REPAIR Left Stent drug-eluting/ left circumflex N/A 05/09/2024 Performed by Gilberto Zepeda MD at [facility] TONSILLECTOMY 1970 OT Treatment/Interventions: ADL retraining, Functional transfer training, UE strengthening/ROM, Endurance training, Patient/family training, Equipment eval/education, Balance, Home management, Compensatory technique education, Functional activities, Bed mobility OT Frequency: 5-6days/week OT Duration: LOS Assessment Patient Assessment Therapy Problem List: Decreased ADL status, Decreased balance, Decreased endurance, Decreased high-level ADLs, Decreased self-care trans, Decreased UE strength Patient Response to Treatment: Tolerated evaluation without adverse reaction Mood/Affect: Appropriate for circumstances (slightly confused, but pleasant) Rehab Prognosis: Good, With continued OT status post acute discharge Visit RN Communication: Yes Medical Record Reviewed: Yes OT Type of Visit: Evaluation Precautions Activity: OK per RN for OT/PT Equipment: RW, alarms, IV, hylton catheter Telemetry/Director Professional Services: Yes Oxygen Order : MILLING SUPERVISOR guidelines Oxygen Used: room air Other: fall risk, confusion Pain Assessment Pain Assessment: 0-10 Pain Score: 6 Observed Behavior: Calm Pain Location: Neck Pain Intervention(s): Repositioned (RN provided pain meds) Response to Interventions: Quiet Pain 2 Observed Behavior: Calm Home Living Type of Home: House Home Layout: Two level (bedroom on main, bathroom on 2nd level) Stairs to Enter: 2 Hand Rails: Left Stairs in Home: full flight to 2nd level with bathroom Hand Rails in Home: Left Bathroom Shower/Tub: Tub/shower unit Bathroom Toilet: Standard Bathroom Equipment: (none) Home Equipment: (none) Other : Pt was IND with no AD, denies recent falls. 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) Leisure: Hobbies-no ADL / IADL Hand Dominance: Left Where Assessed: Edge of bed, Chair, Supine, bed, At toilet, Sitting at sink Grooming Assistance: Standby assist, Verbal cues Grooming Deficit: Steadying, Wash/dry hands, Wash/dry face, Brushing hair, Oral hygiene (seated on toilet) Toilet/Commode Assistance: Mod assist Toilet/Commode Deficit: Increased time to complete, Supervison/safety, Verbal cueing, Grab bar use,Clothing management up UE Dressing Assistance: Standby assist (to manage hospital gown) UE Dressing Deficit: Increased time to complete, Supervision/safety Footwear Assistance: Max assist Footwear Deficit: R sock, L sock Other: Inc time and effort to complete all ADL with cues for safety as pt is forgetful. Home Management - IADL Other: Inc time and effort to complete all ADL with cues for safety as pt is forgetful. Hearing / Speech / Vision Hearing: Within Functional Limits Speech: Within Functional Limits Current Vision: No visual deficits Cognition Overall Cognitive Status: Exceptions to Within Functional Limits Arousal/Alertness: Appropriate responses to stimuli Attention Span: Attends with cues to redirect Memory: Decreased recall of recent events, Decreased recall of precautions Orientation Level: Oriented to time, Disoriented to month, Disoriented to place, Oriented to person, Disoriented to situation Following Commands: Follows one step commands with increased time, Follows one step commands with repetition Safety Judgment: Decreased awareness of need for safety, Decreased awareness of need for assistance Awareness of Errors: Decreased awareness of errors Insight of Deficits: Decreased awareness of deficits Problem Solving: Assistance required to identify errors made, Reduced Interfering Components: Attention to detail, Processing speed, Working memory Other: Pt pleasant, however confused / repetitive in conversation at times. Pt also reports seeing bugs on the floor (there were none). Sensation Overall Sensation Status: Within Functional Limits Bed Mobility Rolling: Stand by assist Supine to Sit: Stand by assist Sit to Supine: Unable to assess Other: Pt remains up in recliner with all needs met, chair alarm on, call light in reach. RN aware. Transfers Sit to Stand: Contact guard assist Stand to Sit: Contact guard assist Bed to Chair: Contact guard assist Other: Cues for safe hand placement / management of RW. Pt also often abandons RW. Gait Gait Assistance: Contact guard assist Assistive Device: Rolling walker Other: Functional mobility in room from EOB to bathroom and back to recliner to inc overall endurance. One seated rest break for toileting. Pt fatigues rapidly. Balance Sitting Balance: Static: Good Sitting Balance: Dynamic: Good Standing Balance: Static: Fair Standing Balance: Dynamic: Fair RUE Assessment: (generalized weakness, grossly 4/5) LUE Assessment: (generalized weakness, grossly 4/5) Activity Tolerance Endurance: Tolerates >30 minutes activity with rest breaks Other: Therapeutic rest breaks prn. Plan Occupational Therapy Care Plan Occupational Therapy Care Plan (Active) Template: OT - Occupational Therapy Problem: Activity Tolerance Dates: Start: 09/14/24 Disciplines: OT Goal: No limitations to activity tolerance Dates: Start: 09/14/24 Expected End: 09/28/24 Description: Goal Description: Disciplines: OT Problem: Bed Mobility Dates: Start: 09/14/24 Disciplines: OT Goal: Patient will perform bed mobility with Modified [place] Dates: Start: 09/14/24 Expected End: 09/28/24 Description: Goal Description: Disciplines: OT Problem: Cognition Dates: Start: 09/14/24 Disciplines: OT Goal: Improve cognition Dates: Start: 09/14/24 Expected End: 09/28/24 Description: Pt will implement recall strategies into her routine to inc safety and IND in ADLs. Disciplines: OT Problem: Functional Mobility Dates: Start: 09/14/24 Disciplines: OT Goal: Patient will perform functional mobility with Modified [place] Dates: Start: 09/14/24 Expected End: 09/28/24 Description: Goal Description: Disciplines: OT Problem: Other (Customize) Dates: Start: 09/14/24 Disciplines: OT Goal: Improve Dates: Start: 09/14/24 Expected End: 09/28/24 Description: Pt will complete all ADL at MOD I with use of DME / AE prn Disciplines: OT Problem: Standing Balance Dates: Start: 09/14/24 Disciplines: OT Goal: Improve balance to good Dates: Start: 09/14/24 Expected End: 09/28/24 Description: Static Dynamic Disciplines: OT Problem: Strength Dates: Start: 09/14/24 Disciplines: OT Goal: Improve strength Dates: Start: 09/14/24 Expected End: 09/28/24 Description: Pt will tolerate B UE HEP to inc overall strength to 5/5 to assist with ADL transfers. Disciplines: OT Problem: Transfers Dates: Start: 09/14/24 Disciplines: OT Goal: Patient will perform transfers with Modified [place] Dates: Start: 09/14/24 Expected End: 09/28/24 Description: Goal Description: Disciplines: OT Occupational Therapy Care Plan (Resolved) There are no resolved problems. Principal Problem: Sepsis ([facility]-HCC) * Plan of Care - Jacqueline Milligan RN - 09/14/2024 1:18 AM EDT Problem: Pain Goal: Patient goal is pain score less than 4, able to rest, and participant in treatment plan as appropriate Description: INTERVENTIONS: 1. Encourage patient or legal maintenance representative to report early pain and ask for pain medicine when needed 2. Assess pain using appropriate pain scale and include the scale used when documenting 3. Administer analgesics based on type and severity of pain and evaluate response within appropriate time frame 4. Implement non-pharmacological measures as appropriate and evaluate response 5. Consider cultural and social influences on pain and pain management 6. Notify LIP if interventions ineffective or patient reports new pain 7. Monitor vital signs including pulse ox, end-tidal CO2 based on pain intervention 8. Reassess pain per policy 9. Teach patient or legal maintenance representative interventions for comforting Outcome: Progressing Note: Evaluation of progress towards goal: Pt assessed for pain q4h and with rounding, using numerical scale. PRN analgesics available for Tx of reported pain. PRN analgesics administered on shift. Pt able to rest on shift. Problem: Safety Goal: Patient will be injury free during hospitalization Description: INTERVENTIONS: 1. Assess patient's risk for falls and implement fall prevention plan of care per policy 2. Provide and maintain a safe environment 3. Proper use of double Identifiers 4. Medication administration using the 5 rights 5. Hand hygiene 6. Specimens are labeled at the bedside 7. Instruct patient/ patient maintenance representative about use of safety devices 8. Include patient/ patient maintenance representative in decisions related to safety Outcome: Progressing Note: Evaluation of progress towards goal: Pt remains free from injury for current hospitalization.Fall and aspiration precautions in place, maintained. Safety equipment at bedside and on unit. Problem: Infection Goal: Absence of infection during hospitalization Description: INTERVENTIONS 1. Assess and monitor for signs and symptoms of infection. 2. Monitor lab/diagnostic results. 3. Monitor all insertion sites i.e., indwelling lines, tubes and drains. 4. Monitor endotracheal (as able) and nasal secretions for changes in amount and color. 5. Administer medications as ordered. 6. Instruct and encourage patient and family to use good hand hygiene technique. 7. Identify and instruct patient/patient maintenance representative in use of appropriate isolation precautionsfor identified infection/symptoms. 8. Provide and discuss with patient/patient maintenance representative on educational MDRO sheet. 9. Encourage and monitor nutritional status daily and consult high school drafting teacher if indicated. 10. Implement neutropenic guidelines as needed. Outcome: Progressing Note: Evaluation of progress towards goal: Pt remains afebrile for shift. Infection prevention strategies utilized, standard precautions maintained. Pt receiving IV Zosyn q12 for ABX. Problem: Moderate - High Risk Fall Score Description: Lew Fall Score of =/> 25 or indicated by [facility] Assessment Goal: Patient should be free from fall Description: Interventions: 1. [place] to environment 2. Hourly rounds addressing the 4 P's (Pain, Positioning, Possessions, Potty) 3. Clear area of hazards (spills, clutter, electrical cords, unnecessary equipment) 4. Place equipment (bed & TV controls, call light, phone, urinal) within reach 5. Encourage patient to wear glasses and hearing aides as appropriate 6. Maintain bed in lowest position 7. Lock wheels on bed/wheelchair 8. Provide adequate lighting, including night light 9. Assess need for additional bedding, food/fluids, pain med's prior to sleep/routinely 10. Provide gripper slippers or personal non-skid footwear 11. Teach patient and patient maintenance representative to maintain environment for safety and engage in all aspects of fall prevention program 12. Remind patient to call for help before getting out of bed 13. Initiate bed/chair/exit alarms supportive devices as appropriate, (chair wedge, no-skid floor mat, raised edge mattress, hip protectors) 14. Locate patient bed assignment for optimal visualization 15. Evaluate and identify Safe Patient Handling Equipment needs 16. Provide supervision when out of bed or chair 17. Utilize gait belt as needed to assist with ambulation 18. Place adaptive equipment (cane, walker) within reach 19. Request patient maintenance representative bring adaptive equipment/mobility aids from home or obtain and provide as needed 20. Consult pharmacy regarding effects of med's affecting mobility, cognition, and alternatives 21. Obtain physician order for PT if risk factors associated with mobility are present 22. Obtain physician order for OT as appropriate 23. Utilize diversional activities 24. Educate patient and patient maintenance representative how to maintain a safe environment during visitationtimes (notify nurse prior to leaving bedside) 25. Consider appropriateness of medical or non-nuclear medical technologist 26. Set up voiding schedule as appropriate (every 2 hours) Outcome: Progressing Note: Evaluation of progress towards goal: Pt remains free from fall for current hospitalization. Fall precautions in place, maintained. Problem: Potential for Compromised Skin Integrity Goal: Skin integrity is maintained or improved Description: Patient's goal is: INTERVENTIONS 1. Perform initial skin assessment on admission and as needed 2. Turn patient every 2 hours and PRN 3. Relieve pressure to bony prominences 4. Avoid shearing 5. Keep skin clean and dry 6. Alternate a full bath with partial baths for elderly 7. Apply lotion/moisturizer on skin 8. Monitor patient's hygiene practices 9. Float heels 10. Collaborate with interdisciplinary team and initiate plans and interventions as needed Outcome: Progressing Note: Evaluation of progress towards goal: Pt skin integrity maintained. Pt declined hygiene on shift. * Discharge Planning Note - Francie Figueroa RN - 09/13/2024 3:52 PM EDT Images from the original note were not included. DISCHARGE PLANNING NOTE Initial Assessment Flowsheet Row Most Recent Value Patient Information Initial Pre-Hospitalization Assessment Completed? Completed Primary Caregiver Self Support System Children, Family Members Discharge Planning Living Arrangements Alone, Other Assistance Needed [place] Type of Residence Apartment Private Residence 2 story Can patient reside on one level? Yes Residence Accessibility Steps into home Number of Steps 13 Home Care Services No Community Agencies Currently Utilized None Community Referrals / Resources Provided Denies needs Stressors Income Information IP Hunger/Food Insecurity Screening Within the past 12 months we worried whether our food would run out before we got money to buy more. Never True Within the past 12 months the food we bought just didn't last and we didn't have money to get more.Never True Hunger Screening Complete? Yes Pt. Eligible for Food / Voucher No If Eligible: Received Food Box Not Offered to Patient Warm Handoff Complete Caregiver/Family Member Caregiver/Family Member daughter - tonny Caregiver/Family Member Involved with Current Plan of Care Yes Caregiver/Family Member in Agreement with Current Plan of Care Yes Caregiver/Support System Limitations Caregiver/Support Systems Limitations (Check All That Apply) Caregiver Limitations Patient/Caregiver Goals Patient/Caregiver Goals Home with Home Care, Custodial Care Skilled [facility] Care Skilled Care (Short Term) Community Provider Referral Community Provider Referral None Services Requested Patient expects to be discharged to: SNF Does the patient wish to have family/friend/caregiver involved in their discharge planning? Yes Does the patient plan to return home to a community setting? No, patient to discharge to facility-based provider. See Discharge Disposition Discharge Disposition SNF, Home with home health services Does the patient need discharge transportation arranged? Yes Transportation Arranged Ambulance Patient choice offered Yes List Provided Yes DC Planning Complete Discharge Milestones Yes Body Engineer met with patient, introduced self, and explained role. Patient educated on safe discharge plan. Pt admitted 09/12/2024 with Sepsis ([facility]) [A41.9] per chart review. Past Medical History: Diagnosis Date Asthma Asthma Back pain Cervical disc disorder CHB (complete heart block) ([facility]) 05/07/2024 HTN (hypertension) Hx of scabies Low back pain Lumbosacral disc disease Neck pain Osteoarthritis TMJ (temporomandibular joint syndrome) Prior to admission patient was living alone and partial assistance. Medical equipment patient used prior to admission includes: Shower Bars and quad cane. Patient does not drive - takes the bus or has family transport. Patient states she is independent with ADLs at home. Patient was discharged in May 2024 with Zoll LifeVest - not wearing on admission - patient states she doesn't wear it regularly. Patient was at SNF after hospitalization in May and was discharged home mid June per patient. Patient denies need for transportation/ food/ prescription medication assistance resources. PCP: [facility] Pharmacy:[facility] PCP and pharmacy confirmed with patient. CN offered to assist with follow up appointment arrangements; patient declines. [facility] added to Follow Up Providers for Summary of Care communication. Current discharge plan is: Patient is from home alone - family called EMS. Patient wants to go home- will need PT/OT to see. CN attempted to call daughter to discuss discharge planning - no answer, unable to leave voicemail. Services Requested: Services Requested Patient expects to be discharged to:: SNF Does the patient wish to have family/friend/caregiver involved in their discharge planning?: Yes Does the patient plan to return home to a community setting?: No, patient to discharge to facility-based provider. See Discharge Disposition Discharge Disposition: SNF, Home with home health services Does the patient need discharge transportation arranged?: Yes Transportation Arranged: Ambulance Patient choice offered: Yes List Provided: Yes DC Planning Complete Discharge Milestones: Yes Goals: Goals <enter goal here> (pt-stated) Evaluation of progress towards goal: Patient plans for a safe discharge. Will continue to follow as plan of care develops. CN discussed benefits and importance of medication compliance and follow ups. Please feel free to reach out for any discharge planning questions. - Francie Figueroa RN 09/13/24 3:53 PM * PT/OT/PUBLIC HEALTH ENGINEER - Rosemary Muir CCC-PUBLIC HEALTH ENGINEER - 09/13/2024 12:08 PM EDT Speech Therapy Videofluoroscopic Swallow Study Evaluation and Discharge Summary with Treatment Impressions Oral Phase: Mild Pharyngeal Phase: Mild No aspiration Functional Oral Intake Scale: Total PO no special prep- must avoid specific items Recommendations (*solid texture is per pt request (pt states she prefers easy to chew solids)) Diet Level: Level 6 Soft and Bite-Sized Liquid Level: Level 0 Thin Compensatory Strategies: Small sips/bites, One sip/bite at a time Supervision/Positioning: Patient at 90 degress for all PO intake (including medication) Medications: One at a time, In applesauce/puree No Skilled ST indicated at this time Pt requests a softer diet for ease of mastication; should the pt desire an upgrade -MD may advance as as appropriate Plan Frequency: (pending VFSS results) Need for skilled Speech Language Pathology Services to address deficits in feeding/swallowing due to a status decline resulting from: 63 y.o. female admitted on 09/12/[address] was referred to eval/tx . Discharge Recommendations for Safe Patient Transition Discharge Recommendations: (refer to the ordering MD) Assessment Pt was educated on purpose of exam, contrast administration, and procedural techniques prior to initiation of exam. Evaluation completed. See report for details. Pt presents with minimal/mild tim-pharyngeal dysphagia without penetration/aspiration. Diagnostic Treatment completed after VFSS: skillededuc and training provided to the pt on the results/rec. Swallow anatomy/physiology was instructed upon. Pt requests an easy to chew diet; she reports having a preference for softer foods. Pt was encouraged to use swallow compensatory strategies in order to maintain safe/opimal PO intake. Pt verbalized understanding. RN was notified. LRD is in place (per pt request Level 6 texture/thin). ST willsign off. Baseline Assessment Prior BSSE/VFSS: 05/17/24 S/L eval (WFL rec/exp; Mod Cog deficits) Additional Testing Results: Computed Tomography, Chest X-Ray Setting Prior to Admission: Home Associated Problems: Mental status changes Respiratory Status: Room Air Behavior/Cognition: Cooperative, Distractible, Lethargic, Requires cueing, Confused Dentition: Poor Dentition Patient Positioning: Upright in bed Baseline Vocal Quality: Normal Volitional Swallow: Within Functional Limits Ability to Control Secretions: Yes Feeding Assistance: Needs assist Current Diet Type: NPO Allergies Marked As Reviewed: Complete Consistencies Tested Views: Lateral position Level 0 Thin: Cup, Straw Level 4 Pureed: Spoon Level 6 Soft & Bite-Sized: Spoon Regular Tested: (pt declined (too dry)) Modified Barium Swallow Impairment Profile (MBSImP) Oral Impairment: Yes Component 1: Lip Closure: no labial escape Component 2: Tongue Control During Bolus Hold: posterior escape of less than half of bolus Component 3: Bolus Preparation/Mastication: slow prolonged chewing/mashing with complete re-collection Component 4: Bolus Transport/Lingual Motion: slowed tongue motion Component 5: Oral Residue: residue collection on oral structures Component 6: Initiation of Pharyngeal Swallow: bolus head in pyriforms Pharyngeal Impairment: Yes Component 7: Soft Palate Elevation: no bolus between soft palate/posterior pharyngeal wall Component 8: Laryngeal Elevation: complete superior movement of thyroid cartilage with complete approximation of arytenoids to epiglottic petiole Component 9: Anterior Hyoid Excursion: partial anterior movement Component 10: Epiglottic Movement: partial inversion Component 11: Laryngeal Vestibular Closure - Height of the Swallow: complete, no contrast/air in laryngeal vestibule Component 12: Pharyngeal Stripping Wave: present - complete Component 13: Pharyngeal Contraction (A/P view only): could not be determined due to logistical reasons not related to physiologic impairment Component 14: Pharyngoesophageal Segment Opening: complete distension and complete duration, no obstruction of flow Component 15: Tongue Base Retraction: narrow column of contrast/air between tongue base and posterior pharyngeal wall Component 16: Pharyngeal Residue: collection of residue within or on pharyngeal structures MBSImP Overall Impression Scores Oral Impairment Total: 10 Pharyngeal Impairment Total: 6 Penetration/Aspiration Scale Penetration/Aspiration Scale Performed: Yes (No penetration/aspiration) Level 0 Thin: Contrast did not enter the airway Level 4 Pureed: Contrast did not enter the airway Level 6 Soft & Bite-Sized: Contrast did not enter the airway Regular: Contrast did not enter the airway Trialed Compensatory Strategies Strategies Utilized: Small sips/bites Effective: Yes Pain Assessment Pain Assessment: No/denies pain Plan Diagnosis Code Swallowing: R13.12 Dysphagia, oropharyngeal phase Speech Therapy Care Plan Speech Therapy Care Plan (Active) Template: ST - Dysphagia Problem: Swallowing Dates: Start: 09/13/24 Disciplines: PUBLIC HEALTH ENGINEER Goal: STG: Patient will complete safety strategies with minimal assistance during PO intake 90% of the time Dates: Start: 09/13/24 Expected End: 09/27/24 Disciplines: PUBLIC HEALTH ENGINEER Outcomes Date/Time User Outcome 09/13/24 1224 STACI Hylton Adequate for Discharge 09/13/24 0901 STACI Hylton Progressing Goal: STG: Pt will participate in VFSS evaluation to further assess swallow efficiency and safe oral intake (Resolved) Dates: Start: 09/13/24 Expected End: 09/27/24 Resolved: 09/13/24 Disciplines: PUBLIC HEALTH ENGINEER Outcomes Date/Time User Outcome 09/13/24 1224 STACI Hylton Completed Speech Therapy Care Plan (Resolved) There are no resolved problems. Principal Problem: Sepsis (CMS-HCC) * PT/OT/PUBLIC HEALTH ENGINEER - STACI Hylton - 09/13/2024 7:20 AM EDT Speech Therapy Bedside Swallow/ Feeding Evaluation and Treatment Note Impressions Oral Dysphagia: Mild Pharyngeal Dysphagia Suspected: Yes Recommendations Diet Level: NPO Referrals: VFSS Plan Diet/plan pending VFSS results Need for skilled Speech Language Pathology Services to address deficits in feeding/swallowing due to a status decline resulting from: 63 y.o. female admitted on 09/12/[address] was referred to eval/tx . Discharge Recommendations for Safe Patient Transition Discharge Recommendations: (ST to follow while IP; diet pending VFSS) Prognosis Services: Skilled PUBLIC HEALTH ENGINEER services to address above deficits Prognosis/Potential: Good Considerations: Previous level of function Assessment Evaluation completed. See report for details. Purpose of the evaluation and role of ST discussed. Pt is receptive to the assessment. Pt is pleasantly confused, benefit from repetition to answer and follow directions. Diagnostic Treatment completed throughout the clinical swallow exam. Skilled educ and training was provided to the pt and RN on the results/rec. Normal vs. impaired swallow anatomy/physiology was instructed upon- indicating areas of weakness and risks for reduced airway protection.VFSS rec. Pt verbalized understanding. RN was notified. Baseline Assessment Prior BSSE/VFSS: 05/17/24 S/L eval (WFL rec/exp; Mod Cog deficits) Additional Testing Results: Computed Tomography, Chest X-Ray Setting Prior to Admission: Home Associated Problems: Mental status changes Respiratory Status: Room Air Behavior/Cognition: Cooperative, Distractible, Lethargic, Requires cueing, Confused Dentition: Poor Dentition Patient Positioning: Upright in bed Baseline Vocal Quality: Normal Volitional Swallow: Within Functional Limits Ability to Control Secretions: Yes Feeding Assistance: Needs assist Current Diet Type: NPO Allergies Marked As Reviewed: Complete Oral/Motor Overall Oral/Motor Status: Exceptions to Within Functional Limits Labial ROM: Reduced Labial Symmetry: Within Functional Limits Labial Strength: Within Functional Limits Labial Sensation: Within Functional Limits Lingual ROM: Reduced Lingual Symmetry: Within Functional Limits Lingual Strength: Reduced Facial Tone: Reduced Facial Symmetry: Within Functional Limits Vocal Quality: Within Functional Limits Vocal Intensity: Within Functional Limits Intelligibility: Intelligible Dentition: Poor Dentition Hearing: Hard of hearing/hearing concerns Consistencies Assessed: Yes Ice Chips Presentation: Spoon Pharyngeal: Within Functional Limits Level 0 Thin Presentation: Cup, Straw (*pt is unable to hold a cup steady) Oral: Suspect premature spillage Pharyngeal: Cough- delayed Level 4 Pureed Presentation: Assist feed Oral: Decreased A-P propulsion Pharyngeal: Delayed swallow initiation Level 6 Soft and Bite-Sized Presentation: Assist feed Oral: Decreased A-P propulsion Pharyngeal: Delayed swallow initiation Regular Presentation: Assist feed Oral: Decreased A-P propulsion, Oral stasis/pocketing (mod oral residue) Pharyngeal: Delayed swallow initiation VFSS is warranted to fully assess swallow function/penetration-aspiration/diet safety Cranial Nerve Screening CN V (trigeminal): Within Functional Limits CN VII (facial): Within Functional Limits CN X (vagus): Within Functional Limits CN XII (hypoglossal): Reduced tongue movements Pain Assessment Pain Assessment: No/denies pain Plan Diagnosis Code Swallowing: R13.12 Dysphagia, oropharyngeal phase Speech Therapy Care Plan Speech Therapy Care Plan (Active) Template: [facility] Dysphagia Problem: Swallowing Dates: Start: 09/13/24 Disciplines: PUBLIC HEALTH ENGINEER Goal: STG: Patient will complete safety strategies with minimal assistance during PO intake 90% of the time Dates: Start: 09/13/24 Expected End: 09/27/24 Disciplines: PUBLIC HEALTH ENGINEER Outcomes Date/Time User Outcome 09/13/24 0901 Rosemary Muir CCC-MANFRED Progressing Goal: STG: Pt will participate in VFSS evaluation to further assess swallow efficiency and safe oral intake Dates: Start: 09/13/24 Expected End: 09/27/24 Disciplines: PUBLIC HEALTH ENGINEER Speech Therapy Care Plan (Resolved) There are no resolved problems. Principal Problem: Sepsis ([facility]) * Plan of Care - Adan Robertson RN - 09/13/2024 2:31 AM EDT Problem: Pain Goal: Patient goal is pain score less than 4, able to rest, and participant in treatment plan as appropriate Description: INTERVENTIONS: 1. Encourage patient or legal maintenance representative to report early pain and ask for pain medicine when needed 2. Assess pain using appropriate pain scale and include the scale used when documenting 3. Administer analgesics based on type and severity of pain and evaluate response within appropriate time frame 4. Implement non-pharmacological measures as appropriate and evaluate response 5. Consider cultural and social influences on pain and pain management 6. Notify LIP if interventions ineffective or patient reports new pain 7. Monitor vital signs including pulse ox, end-tidal CO2 based on pain intervention 8. Reassess pain per policy 9. Teach patient or legal maintenance representative interventions for comforting Outcome: Progressing Note: Evaluation of progress towards goal: Mynor denies any pain at this time. DONTE Robertson will continue to monitor. Problem: Safety Goal: Patient will be injury free during hospitalization Description: INTERVENTIONS: 1. Assess patient's risk for falls and implement fall prevention plan of care per policy 2. Provide and maintain a safe environment 3. Proper use of double Identifiers 4. Medication administration using the 5 rights 5. Hand hygiene 6. Specimens are labeled at the bedside 7. Instruct patient/ patient maintenance representative about use of safety devices 8. Include patient/ patient maintenance representative in decisions related to safety Outcome: Progressing Note: Evaluation of progress towards goal: Mynor remains free of injury. Mynor's bed is locked in the lowest position, call light is within reach, bed alarm is armed, and all liquids are not within reach due to her failing a nurse bedside swallow. DONTE Robertson will continue to monitor. Problem: Moderate - High Risk Fall Score Description: Lew Fall Score of =/> 25 or indicated by [facility] Assessment Goal: Patient should be free from fall Description: Interventions: 1. [place] to environment 2. Hourly rounds addressing the 4 P's (Pain, Positioning, Possessions, Potty) 3. Clear area of hazards (spills, clutter, electrical cords, unnecessary equipment) 4. Place equipment (bed & TV controls, call light, phone, urinal) within reach 5. Encourage patient to wear glasses and hearing aides as appropriate 6. Maintain bed in lowest position 7. Lock wheels on bed/wheelchair 8. Provide adequate lighting, including night light 9. Assess need for additional bedding, food/fluids, pain med's prior to sleep/routinely 10. Provide gripper slippers or personal non-skid footwear 11. Teach patient and patient maintenance representative to maintain environment for safety and engage in all aspects of fall prevention program 12. Remind patient to call for help before getting out of bed 13. Initiate bed/chair/exit alarms supportive devices as appropriate, (chair wedge, no-skid floor mat, raised edge mattress, hip protectors) 14. Locate patient bed assignment for optimal visualization 15. Evaluate and identify Safe Patient Handling Equipment needs 16. Provide supervision when out of bed or chair 17. Utilize gait belt as needed to assist with ambulation 18. Place adaptive equipment (cane, walker) within reach 19. Request patient maintenance representative bring adaptive equipment/mobility aids from home or obtain and provide as needed 20. Consult pharmacy regarding effects of med's affecting mobility, cognition, and alternatives 21. Obtain physician order for PT if risk factors associated with mobility are present 22. Obtain physician order for OT as appropriate 23. Utilize diversional activities 24. Educate patient and patient maintenance representative how to maintain a safe environment during visitationtimes (notify nurse prior to leaving bedside) 25. Consider appropriateness of medical or non-nuclear medical technologist 26. Set up voiding schedule as appropriate (every 2 hours) Outcome: Progressing Note: Evaluation of progress towards goal: Mynor remains free of falls. Mynor's bed is lockedin the lowest position, call light is within reach, and the bed alarm is armed. DONTE Robertson will continue to monitor. Problem: Urinary Incontinence Goal: Perineal skin integrity is maintained or improved Description: INTERVENTIONS 1. Assess genitourinary system, perineal skin, labs (urinalysis), and history of incontinence to include past management, aggravating, and alleviating factors 2. Keep skin clean and dry 3. Apply skin protectant 4. Develop skin care regimen 5. Provide privacy when changing patients incontinence device to maintain their dignity 6. Consider placing an indwelling catheter 7. Collaborate with interdisciplinary team and initiate plans and interventions as needed Outcome: Progressing Note: Evaluation of progress towards goal: Nuzhat perineal skin has been maintained and she hasan indwelling urinary catheter. DONTE Robertson will continue to monitor. documented in this encounter Plan of Treatment Upcoming Encounters Date Type Department Care Team (Late st Contact Info) Description 10/07/2024 3:15 PM EDT Office Visit [facility] [address] [place] [id number] Julianna Hdez MD [address] [place] [address] documented as of this encounter Goals Goal Patient Goal Type Associated Problems Recent Progress Patient-Stated? Author <enter goal here> General Yes Viji Pham RN Note: Evaluation of progress towards goal: Patient plans for a safe discharge. documented as of this encounter Procedures Procedure Name Priority Date/Time Associated Diagnosis Comments CBC WITH AUTO DIFFERENTIAL Routine 09/18/2024 4:51 AM EDT PHOSPHORUS Routine 09/18/2024 4:51 AM EDT MAGNESIUM Routine 09/18/2024 4:51 AM EDT COMPREHENSIVE METABOLIC PANEL Routine 09/18/2024 4:51 AM EDT MAGNESIUM Routine 09/17/2024 4:23 PM EDT CBC WITH AUTO DIFFERENTIAL Routine 09/17/2024 4:33 AM EDT PHOSPHORUS Routine 09/17/2024 4:33 AM EDT MAGNESIUM Routine 09/17/2024 4:33 AM EDT COMPREHENSIVE METABOLIC PANEL Routine 09/17/2024 4:33 AM EDT C DIFFICILE BY PCR Routine 09/16/2024 4: [address] ABDOMEN AND PELVIS W CONT STAT 09/16/2024 2:31 PM EDT CLINICAL PATHOLOGY REVIEW Routine 09/16/2024 10:57 AM EDT CBC WITH AUTO DIFFERENTIAL Routine 09/16/2024 4:26 AM EDT PHOSPHORUS Routine 09/16/2024 4:26 AM EDT MAGNESIUM Routine 09/16/2024 4:26 AM EDT IONIZED CALCIUM Routine 09/16/2024 4:26 AM EDT COMPREHENSIVE METABOLIC PANEL Routine 09/16/2024 4:26 AM EDT POTASSIUM Routine 09/15/2024 5:34 PM EDT IONIZED CALCIUM Routine 09/15/2024 2:14 PM EDT EXTRA TUBES PST TOP Routine 09/15/2024 2 :13 PM EDT EXTRA TUBES Routine 09/15/2024 2:13 PM EDT POTASSIUM Routine 09/15/2024 10:28 AM EDT CBC WITH AUTO DIFFERENTIAL Routine 09/15/2024 5:16 AM EDT PHOSPHORUS Routine 09/15/2024 5:16 AM EDT MAGNESIUM Routine 09/15/2024 5:16 AM EDT IONIZED CALCIUM Routine 09/15/2024 5:16 AM EDT COMPREHENSIVE METABOLIC PANEL Routine 09/15/2024 5:16 AM EDT EXTRA TUBES SST TOP Routine 09/14/2024 1 :00 PM EDT EXTRA TUBES Routine 09/14/2024 1:00 PM EDT IONIZED CALCIUM Routine 09/14/2024 1:00 PM EDT XR ABDOMEN AP 1 VW STAT 09/14/2024 11 :51 AM EDT POTASSIUM Routine 09/14/2024 10:27 AM EDT PHOSPHORUS Routine 09/14/2024 4:15 AM EDT MAGNESIUM Routine 09/14/2024 4:15 AM EDT IONIZED CALCIUM Routine 09/14/2024 4:15 AM EDT COMPREHENSIVE METABOLIC PANEL Routine 09/14/2024 4:15 AM EDT CYTOPLASMIC NEUTROPHILIC AB (ANCA), S Routine 09/14/2024 4:07 AM EDT GLOMERULAR BASEMENT MEMBRANE IGG AB Routine 09/14/2024 4:07 AM EDT PROTEINASE 3 AB PR3 Routine 09/14/2024 4 :07 AM EDT MYELOPEROXIDASE AB Routine 09/14/2024 4: 07 AM EDT COMPLEMENT PROFILE (C3 AND C4) Routine 09/14/2024 4:07 AM EDT CBC WITH AUTO DIFFERENTIAL Routine 09/14/2024 4:07 AM EDT ANTI-CRUZ ANTIBODY IGG Routine 09/15/19 4:07 AM EDT HEPATITIS C(HCV) ANTIBODY W/REFLEX TO PCR Routine 09/14/2024 4:07 AM EDT HEPATITIS B SURFACE ANTIBODY QUANTITATION Routine 09/14/2024 4:07 AM EDT HEPATITIS B SURFACE ANTIGEN Routine 09/14/2024 4:07 AM EDT RHEUMATOID FACTOR Routine 09/14/2024 4:0 7 AM EDT KANG SCREEN W/ REFLEX Routine 09/14/2024 4:07 AM EDT PROTEIN ELECTROPHORESIS, SERUM Routine 09/14/2024 4:07 AM EDT IONIZED CALCIUM Routine 09/13/2024 7:48 PM EDT SODIUM Routine 09/13/2024 3:52 PM EDT MICROALBUMIN / CREATININE URINE RATIO Routine 09/13/2024 3:04 PM EDT SODIUM Routine 09/13/2024 2:09 PM EDT VASC ARTERIAL DOPPLER LOWER BILATERAL MULTI LEVEL/PVR Routine 09/13/2024 1:27 PM EDT FL SWALLOW MOTILITY FUNCTION Routine 09/13/2024 12:18 PM EDT EXTRA TUBES PST TOP Routine 09/13/2024 8 :55 AM EDT EXTRA TUBES Routine 09/13/2024 8:55 AM EDT SODIUM Routine 09/13/2024 8:55 AM EDT IONIZED CALCIUM Routine 09/13/2024 8:55 AM EDT PROCALCITONIN Routine 09/13/2024 4:11 AM EDT CBC WITH AUTO DIFFERENTIAL Routine 09/13/2024 4:11 AM EDT MAGNESIUM Routine 09/13/2024 4:11 AM EDT COMPREHENSIVE METABOLIC PANEL Routine 09/13/2024 4:11 AM EDT URINE CREATININE,RANDOM Routine 09/14/19 12:31 AM EDT DRUG SCREEN, URINE Routine 09/13/2024 12 :31 AM EDT SODIUM, URINE, RANDOM Routine 09/13/2024 12:31 AM EDT OSMOLALITY, URINE Routine 09/13/2024 12: 31 AM EDT BLOOD GAS, VENOUS Routine 09/12/2024 10: 39 PM EDT LACTATE W/ REFLEX STAT 09/12/2024 10: 30 PM EDT OSMOLALITY Routine 09/12/2024 10:30 PM EDT MYOGLOBIN, SERUM Routine 09/12/2024 10:3 0 PM EDT CK TOTAL Routine 09/12/2024 10:30 PM EDT BASIC METABOLIC PANEL STAT 09/12/2024 10:30 PM EDT documented in this encounter Results * Phosphorus (09/18/2024 4:51 AM EDT) Pathologist [facility] PHOSPHORUS 3.5 2.4 - 4.9 mg/dL 09/18/2024 5:38 AM T [facility] Blood Venous blood / Unknown Venipuncture / Unknown 09/18/2024 4:51 AM EDT 09/18/2024 5:02 AM EDT us Lele Aguila MD LAB BLOOD ORDERABLES Final Resul t [facility] [address] [place] [address], * (ABNORMAL) CBC auto differential (09/18/2024 4:51 AM EDT) WBC 7.7 4 - 11 x10E9/L 09/18/2024 5:25 AM T [facility] RBC Count 3.09(L) 3.8 - 5.2 X10E12/L 09/18/2024 5:25 AM [facility] Hemoglobin 9.6(L) 11.7 - 15.5 g/dL 09/18/2024 5:25 AM [facility] Hematocrit 28.2(L) 35 - 47 % 09/18/2024 5:25 AM [facility] MCV 91 80 - 100 fL 09/18/2024 5:25 AM T [facility] MCH 31.3 27 - 34 pg 09/18/2024 5:25 AM [facility] MCHC 34.2 32 - 36 g/dL 09/18/2024 5:25 AM [facility] RDW 14.2 11.5 - 15 % 09/18/2024 5:25 AM [facility] Platelet Count 300 150 - 450 X10E9/L 09/18/2024 5:25 AM [facility] MPV 8.2 7 - 12 fL 09/18/2024 5:25 AM [facility] Neutrophils % 65.6 % 09/18/2024 5:25 AM [facility] Lymphocytes % 15.8 % 09/18/2024 5:25 AM [facility] Monocytes % 9.9 % 09/18/2024 5:25 AM [facility] Eosinophils % 8.0 % 09/18/2024 5:25 AM [facility] Basophils % 0.7 % 09/18/2024 5:25 AM [facility] Neutrophils Absolute (A) 5.0 1.5 - 6.6 10*3/uL 09/18/2024 5:25 AM [facility] Lymphocytes Absolute 1.2 1.0 - 3.5 10*3/uL 09/18/2024 5:25 AM [facility] Monocytes Absolute 0.8 0.0 - 0.9 10*3/uL 09/18/2024 5:25 AM [facility] Eosinophils Absolute 0.6(H) 0.0 - 0.4 10*3/uL 09/18/2024 5:25 AM [facility] Basophils Absolute 0.1 0.0 - 0.2 10*3/uL 09/18/2024 5:25 AM [facility] Differential Type AUTOMATED DIFFERENTIAL 09/18/2024 5:25 AM [facility] Blood Venous blood / Unknown Venipuncture / Unknown 09/18/2024 4:51 AM EDT 09/18/2024 5:02 AM EDT us Abed Nadia LABOR ECONOMICS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 LAB BLOOD ORDERABLES Final Result [facility] [address] [place] [address], [place] * (ABNORMAL) Magnesium (09/18/2024 4:51 AM EDT) MAGNESIUM 1.6(L) 1.8 - 2.6 mg/dL 09/18/2024 5:38 AM [facility] Blood Venous blood / Unknown Venipuncture / Unknown 09/18/2024 4:51 AM EDT 09/18/2024 5:02 AM EDT us ed Nadia LABOR ECONOMICS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 LAB BLOOD ORDERABLES Final Result [facility] [address] [place] [address], [place] * (ABNORMAL) Comprehensive metabolic panel (09/18/2024 4:51 AM EDT) Pathologist [facility] SODIUM 137 134 - 146 mmol/L 09/18/2024 5:38 AM [facility] POTASSIUM 3.8 3.5 - 5.0 mmol/L 09/18/2024 5:38 AM [facility] CHLORIDE 107 98 - 109 mmol/L 09/18/2024 5:38 AM [facility] CARBON DIOXIDE 24 22 - 32 mmol/L 09/18/2024 5:38 AM [facility] ANION GAP 6 5 - 15 mmol/L 09/18/2024 5:38 AM [facility] BLOOD UREA NITROGEN 11 5 - 27 mg/dL 09/18/2024 5:38 AM [facility] CREATININE 0.44 0.40 - 1.00 mg/dL 09/18/2024 5:38 AM [facility] Comment:METHOD TRACEABLE TO IDMS STANDARD GLUCOSE 93 65 - 99 mg/dL 09/18/2024 5:38 AM [facility] CALCIUM 8.1(L) 8.5 - 10.5 mg/dL 09/18/2024 5:38 AM [facility] TOTAL PROTEIN 5.5(L) 6.0 - 8.0 g/dL 09/18/2024 5:38 AM [facility] ALBUMIN 2.9(L) 3.2 - 5.3 g/dL 09/18/2024 5:38 AM [facility] ALKALINE PHOSPHATASE 80 39 - 130 U/L 09/18/2024 5:38 AM [facility] AST 38 <=41 U/L 09/18/2024 5:38 AM [facility] ALT 33(H) <=31 U/L 09/18/2024 5:38 AM [facility] BILIRUBIN,TOTAL 0.4 0.3 - 1.2 mg/dL 09/18/2024 5:38 AM [facility] EGFR Non-Race Dependent >90 >=60 ml/min/1.7 3sq.m 09/18/2024 5:38 AM [facility] Comment: Reported eGFR is based on the CKD-EPI 2020 equation that does not use a race coefficient. Blood Venous blood / Unknown Venipuncture / Unknown 09/18/2024 4:51 AM EDT 09/18/2024 5:02 AM EDT us Torito CEJA LAB BLOOD ORDERABLES Final Result [facility] [address] [place] [address], [place] * Magnesium (09/17/2024 4:23 PM EDT) MAGNESIUM 2.3 1.8 - 2.6 mg/dL 09/17/2024 4:47 PM EDT [facility] Blood Venous blood / Unknown Venipuncture / Unknown 09/17/2024 4:23 PM EDT 09/17/2024 4:27 PM EDT us Reyes Jones MD LAB BLOOD ORDERABLES Final Result [facility] [address] [place] [address], [place] * Phosphorus (09/17/2024 4:33 AM EDT) PHOSPHORUS 2.4 2.4 - 4.9 mg/dL 09/17/2024 6:51 AM [facility] Blood Venous blood / Unknown Venipuncture / Unknown 09/17/2024 4:33 AM EDT 09/17/2024 6:14 AM EDT us Lele Aguila MD LAB BLOOD ORDERABLES Final Resul t [facility] [address] [place] [address], * (ABNORMAL) CBC auto differential (09/17/2024 4:33 AM EDT) WBC 10.5 4 - 11 x10E9/L 09/17/2024 6:51 AM [facility] RBC Count 2.99(L) 3.8 - 5.2 X10E12/L 09/17/2024 6:51 AM [facility] Hemoglobin 9.5(L) 11.7 - 15.5 g/dL 09/17/2024 6:51 AM [facility] Hematocrit 27.4(L) 35 - 47 % 09/17/2024 6:51 AM [facility] MCV 92 80 - 100 fL 09/17/2024 6:51 AM [facility] MCH 31.8 27 - 34 pg 09/17/2024 6:51 AM [facility] MCHC 34.6 32 - 36 g/dL 09/17/2024 6:51 AM [facility] RDW 14.4 11.5 - 15 % 09/17/2024 6:51 AM [facility] Platelet Count 310 150 - 450 X10E9/L 09/17/2024 6:51 AM [facility] MPV 8.5 7 - 12 fL 09/17/2024 6:51 AM [facility] Neutrophils % 69.0 % 09/17/2024 6:51 AM [facility] Lymphocytes % 13.5 % 09/17/2024 6:51 AM [facility] Monocytes % 8.6 % 09/17/2024 6:51 AM [facility] Eosinophils % 8.1 % 09/17/2024 6:51 AM [facility] Basophils % 0.8 % 09/17/2024 6:51 AM [facility] Neutrophils Absolute (A) 7.3(H) 1.5 - 6.6 10*3/uL 09/17/2024 6:51 AM [facility] Lymphocytes Absolute 1.4 1.0 - 3.5 10*3/uL 09/17/2024 6:51 AM [facility] Monocytes Absolute 0.9 0.0 - 0.9 10*3/uL 09/17/2024 6:51 AM [facility] Eosinophils Absolute 0.9(H) 0.0 - 0.4 10*3/uL 09/17/2024 6:51 AM [facility] Basophils Absolute 0.1 0.0 - 0.2 10*3/uL 09/17/2024 6:51 AM [facility] Differential Type AUTOMATED DIFFERENTIAL 09/17/2024 6:51 AM [facility] Blood Venous blood / Unknown Venipuncture / Unknown 09/17/2024 4:33 AM EDT 09/17/2024 6:15 AM EDT us Abed Ramadan LABOR ECONOMICS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 LAB BLOOD ORDERABLES Final Result Performing Organization Address [facility]/ZIP Co de Phone Number [facility] [address] [place] [address], * (ABNORMAL) Magnesium (09/17/2024 4:33 AM EDT) MAGNESIUM 1.6(L) 1.8 - 2.6 mg/dL 09/17/2024 6:51 AM [facility] Blood Venous blood / Unknown Venipuncture / Unknown 09/17/2024 4:33 AM EDT 09/17/2024 6:14 AM EDT us Abed Ramadan LABOR ECONOMICS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 LAB BLOOD ORDERABLES Final Result [facility] [address] [place], [place] [id number], * (ABNORMAL) Comprehensive metabolic panel (09/17/2024 4:33 AM EDT) SODIUM 137 134 - 146 mmol/L 09/17/2024 6:51 AM [facility] POTASSIUM 3.6 3.5 - 5.0 mmol/L 09/17/2024 6:51 AM [facility] CHLORIDE 106 98 - 109 mmol/L 09/17/2024 6:51 AM [facility] CARBON DIOXIDE 26 22 - 32 mmol/L 09/17/2024 6:51 AM [facility] ANION GAP 5 5 - 15 mmol/L 09/17/2024 6:51 AM [facility] BLOOD UREA NITROGEN 5 5 - 27 mg/dL 09/17/2024 6:51 AM [facility] CREATININE 0.47 0.40 - 1.00 mg/dL 09/17/2024 6:51 AM [facility] Comment:METHOD TRACEABLE TO IDMS STANDARD GLUCOSE 89 65 - 99 mg/dL 09/17/2024 6:51 AM [facility] CALCIUM 7.9(L) 8.5 - 10.5 mg/dL 09/17/2024 6:51 AM [facility] TOTAL PROTEIN 5.1(L) 6.0 - 8.0 g/dL 09/17/2024 6:51 AM [facility] ALBUMIN 2.7(L) 3.2 - 5.3 g/dL 09/17/2024 6:51 AM [facility] ALKALINE PHOSPHATASE 74 39 - 130 U/L 09/17/2024 6:51 AM [facility] AST 22 <=41 U/L 09/17/2024 6:51 AM [facility] ALT 14 <=31 U/L 09/17/2024 6:51 AM [facility] BILIRUBIN,TOTAL 0.6 0.3 - 1.2 mg/dL 09/17/2024 6:51 AM [facility] EGFR Non-Race Dependent >90 >=60 ml/min/1.7 3sq.m 09/17/2024 6:51 AM [facility] Comment: Reported eGFR is based on the CKD-EPI 2020 equation that does not use a race coefficient. Blood Venous blood / Unknown Venipuncture / Unknown 09/17/2024 4:33 AM EDT 09/17/2024 6:14 AM EDT Torito Lawsoncourt LABOR ECONOMICS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 LAB BLOOD ORDERABLES Final Result Performing Organization Address City/[facility]/ZIP Co de Phone Number [facility] [address] [place] [address], [place] * C difficile by PCR (09/16/2024 4:04 PM EDT) TOXIGENIC C DIFF Negative Negative 09/17/19 11:28 PM EDT [facility] [address]27 [address]AP1 Presumptive Negative Presumptive Negative 09/16/2024 11:28 PM EDT [facility] Comment:Assay methodology is nucleic acid amplification by real-time PCR for detection of C. difficile toxin gene sequences performed on [employer]. Stool Feces / Unknown 09/16/2024 4 :04 PM EDT 09/16/2024 4:35 PM EDT us Brandt CORTEZ BODY FLUIDS AND STOOLS ORD ERABLES Final Result Performing Organization Address [facility] Co de Phone Number [facility] [address] [place] [address], [place] [phone] * CT abdomen and pelvis with contrast (09/16/2024 2:31 PM EDT) Anatomical Region Laterality Modality Body, Abdomen, Body Covera N/A Compu dwayne Tomography 09/16/2024 2:49 PM EDT Narrative 09/16/2024 2:53 PM EDT EXAM: ABDOMEN AND PELVIS CT WITH CONTRAST CLINICAL INFORMATION: assess diverticulitis. TECHNIQUE: CT abdomen and pelvis was performed utilizing 5 mm axial reconstructions following the uneventful administration of nonionic intravenous contrast. Coronal and sagittal reformatted images as well as delayed excretory phase images were obtained and reviewed. Automated exposure control was utilized. COMPARISON: 09/12/2024 FINDINGS: The limited visualized lung bases demonstrate trace amounts of pleural fluid with minimal bibasilar atelectasis. The liver is unremarkable. The gallbladder is present. The spleen is normal. The pancreas is unremarkable. The right kidney is normal. The left kidney is normal. The adrenals are unremarkable. There is contrast within the nondilated colon from recent modified barium swallow examination. There is no evidence of bowel obstruction. There are no dilated loops of bowel or evidence for pneumatosis or free air. There is slight wall thickening involving the cecum and ascending colon, suspected to represent a mild infectious and/or inflammatory colitis. There is a trace amount of perihepatic free fluid. There is no evidence for a discrete abscess. There are calcifications throughout a normal diameter abdominal aorta and iliac arteries. A urinary catheter is present. IMPRESSION: 1. Slight wall thickening involving the cecum and ascending colon, suspected mild nonspecific infectious and/or inflammatory colitis. Ischemia is within the differential consideration though suspected lysed likely. There is a trace amount of adjacent perihepatic free fluid. There is no evidence of bowel obstruction, pneumatosis, free air, or abscess. 2. Trace amount of pleural fluid with minimal bibasilar atelectasis. All CT scans at this facility use dose modulation, iterative reconstruction, and/or weight based dosing when appropriate to reduce radiation dose to as low as reasonably achievable. Finalized by Paras Nixon MD on 09/16/2024 2:53 PM Procedure Note Paras Nixon MD - 09/16/2024 EXAM: ABDOMEN AND PELVIS CT WITH CONTRAST CLINICAL INFORMATION: assess diverticulitis. TECHNIQUE: CT abdomen and pelvis was performed utilizing 5 mm axialreconstructions following the uneventful administration of nonionicintravenous contrast. Coronal and sagittal reformatted images as well asdelayed excretory phase images were obtained and reviewed. Automatedexposure control was utilized. COMPARISON: 09/12/2024 FINDINGS: The limited visualized lung bases demonstrate trace amounts of pleuralfluid with minimal bibasilar atelectasis. The liver is unremarkable. The gallbladder is present. The spleen isnormal. The pancreas is unremarkable. The right kidney is normal. The leftkidney is normal. The adrenals are unremarkable. There is contrast withinthe nondilated colon from recent modified barium swallow examination.There is no evidence of bowel obstruction. There are no dilated loops of bowel orevidence for pneumatosis or free air. There is slight wall thickeninginvolving the cecum and ascending colon, suspected to represent a mildinfectious and/or inflammatory colitis. There is a trace amount ofperihepatic free fluid. There is no evidence for a discrete abscess. There arecalcifications throughout a normal diameter abdominal aorta and iliacarteries. A urinary catheter is present. IMPRESSION: 1. Slight wall thickening involving the cecum and ascending colon,suspected mild nonspecific infectious and/or inflammatory colitis.Ischemia is within the differential consideration though suspected lysedlikely. There is a trace amount of adjacent perihepatic free fluid. Thereis no evidence of bowel obstruction, pneumatosis, free air, or abscess. 2. Trace amount of pleural fluid with minimal bibasilar atelectasis. All CT scans at this facility use dose modulation, iterativereconstruction, and/or weight based dosing when appropriate to reduceradiation dose to as low as reasonably achievable. Finalized by Paras Nixon MD on 09/16/2024 2:53 PM Tamela Keane MD IMG CT ORDERABLES Final Result * Clinical Pathology Review (09/16/2024 10:57 AM EDT) Case Report Clinical Pathology Report Case: [id number] Authorizing Provider: Lele Aguila MD Collected: 09/16/2024 1057 Ordering Location: [facility] Received: 09/16/2024 1057 a Division of [place] [address] Med-Surg/Ortho Pathologist: Skylar Gonzalez MD Specimen: Blood, Venous 09/16/2024 10:47 PM EDT [facility] Final Diagnosis Prominent band in gamma region, recommend immunofixation for further evaluation. Hypoalbuminemia with mild increase in acute phase reactants. 09/16/2024 10:47 PM EDT [facility] at 2247 EDT Venous blood / Unknown 09/16/2024 10:57 AM EDT 09/16/2024 10:57 AM EDT us Lele Aguila MD PATHOLOGY/CYTOLOGY ORDERABLES Fi nal Result [facility] [address] [place] [address], [place] [phone] * (ABNORMAL) Phosphorus (09/16/2024 4:26 AM EDT) PHOSPHORUS 1.5(L) 2.4 - 4.9 mg/dL 09/16/2024 6:16 AM [facility] Blood Venous blood / Unknown Venipuncture / Unknown 09/16/2024 4:26 AM EDT 09/16/2024 4:44 AM EDT us Lele Aguila MD LAB BLOOD ORDERABLES Final Resul t Performing Organization Address [facility]/ZIP Co de Phone Number [facility] [address] [place] [address], [place] * (ABNORMAL) CBC auto differential (09/16/2024 4:26 AM EDT) WBC 13.8(H) 4 - 11 x10E9/L 09/16/2024 5:02 AM [facility] RBC Count 3.00(L) 3.8 - 5.2 X10E12/L 09/16/2024 5:02 AM [facility] Hemoglobin 9.3(L) 11.7 - 15.5 g/dL 09/16/2024 5:02 AM [facility] Hematocrit 27.4(L) 35 - 47 % 09/16/2024 5:02 AM [facility] MCV 91 80 - 100 fL 09/16/2024 5:02 AM [facility] MCH 31.1 27 - 34 pg 09/16/2024 5:02 AM [facility] LAB MCHC 34.0 32 - 36 g/dL 09/16/2024 5:02 AM [facility] LAB RDW 14.3 11.5 - 15 % 09/16/2024 5:02 AM [facility] LAB Platelet Count 328 150 - 450 X10E9/L 09/16/2024 5:02 AM [facility] LAB MPV 8.3 7 - 12 fL 09/16/2024 5:02 AM [facility] LAB Neutrophils % 74.7 % 09/16/2024 5:02 AM [facility] LAB Lymphocytes % 11.0 % 09/16/2024 5:02 AM [facility] LAB Monocytes % 7.4 % 09/16/2024 5:02 AM [facility] LAB Eosinophils % 6.5 % 09/16/2024 5:02 AM [facility] LAB Basophils % 0.4 % 09/16/2024 5:02 AM [facility] LAB Neutrophils Absolute (A) 10.3(H) 1.5 - 6.6 10*3/uL 09/16/2024 5:02 AM [facility] LAB Lymphocytes Absolute 1.5 1.0 - 3.5 10*3/uL 09/16/2024 5:02 AM [facility] LAB Monocytes Absolute 1.0(H) 0.0 - 0.9 10*3/uL 09/16/2024 5:02 AM [facility] LAB Eosinophils Absolute 0.9(H) 0.0 - 0.4 10*3/uL 09/16/2024 5:02 AM [facility] LAB Basophils Absolute 0.1 0.0 - 0.2 10*3/uL 09/16/2024 5:02 AM [facility] LAB Differential Type AUTOMATED DIFFERENTIAL 09/16/2024 5:02 AM [facility] LAB Blood Venous blood / Unknown Venipuncture / Unknown 09/16/2024 4:26 AM EDT 09/16/2024 4:42 AM EDT us Torito Zuniag 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 LAB BLOOD ORDERABLES Final Result [facility] MA[facility] LAB [address] [place] [address], [place] * Magnesium (09/16/2024 4:26 AM EDT) MAGNESIUM 1.9 1.8 - 2.6 mg/dL 09/16/2024 6:16 AM [facility] LAB Blood Venous blood / Unknown Venipuncture / Unknown 09/16/2024 4:26 AM EDT 09/16/2024 4:44 AM EDT us Torito Zuniga 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 LAB BLOOD ORDERABLES Final Result [facility] LAB [address] [place] [address], * (ABNORMAL) Comprehensive metabolic panel (09/16/2024 4:26 AM EDT) SODIUM 138 134 - 146 mmol/L 09/16/2024 6:16 AM [facility] LAB POTASSIUM 4.2 3.5 - 5.0 mmol/L 09/16/2024 6:16 AM [facility] LAB CHLORIDE 107 98 - 109 mmol/L 09/16/2024 6:16 AM [facility] LAB CARBON DIOXIDE 28 22 - 32 mmol/L 09/16/2024 6:16 AM [facility] LAB ANION GAP 3(L) 5 - 15 mmol/L 09/16/2024 6:16 AM [facility] LAB BLOOD UREA NITROGEN 9 5 - 27 mg/dL 09/16/2024 6:16 AM [facility] LAB CREATININE 0.48 0.40 - 1.00 mg/dL 09/16/2024 6:16 AM [facility] MAIN LAB Comment:METHOD TRACEABLE TO IDMS STANDARD GLUCOSE 96 65 - 99 mg/dL 09/16/2024 6:16 AM [facility] LAB CALCIUM 7.9(L) 8.5 - 10.5 mg/dL 09/16/2024 6:16 AM [facility] LAB TOTAL PROTEIN 5.3(L) 6.0 - 8.0 g/dL 09/16/2024 6:16 AM [facility] LAB ALBUMIN 2.8(L) 3.2 - 5.3 g/dL 09/16/2024 6:16 AM [facility] MA[facility] LAB ALKALINE PHOSPHATASE 72 39 - 130 U/L 09/16/2024 6:16 AM [facility] MA[facility] LAB AST 15 <=41 U/L 09/16/2024 6:16 AM [facility] LAB ALT 7 <=31 U/L 09/16/2024 6:16 AM [facility] MAIN LAB BILIRUBIN,TOTAL 0.7 0.3 - 1.2 mg/dL 09/16/2024 6:16 AM [facility] LAB EGFR Non-Race Dependent >90 >=60 ml/min/1.7 3sq.m 09/16/2024 6:16 AM [facility] MAIN LAB Comment: Reported eGFR is based on the CKD-EPI 2020 equation that does not use a race coefficient. Blood Venous blood / Unknown Venipuncture / Unknown 09/16/2024 4:26 AM EDT 09/16/2024 4:44 AM EDT us Torito Zuniga 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 LAB BLOOD ORDERABLES Final Result Performing Organization Address City/[facility]/ZIP Co de Phone Number [facility] LAB [address] [place] [address], [place] * Ionized calcium (09/16/2024 4:26 AM EDT) IONIZED CALCIUM - ICAN 4.5 4.5 - 5.3 mg/dL 09/16/2024 5:20 AM [facility] LAB Blood Venous blood / Unknown Venipuncture / Unknown 09/16/2024 4:26 AM EDT 09/16/2024 4:44 AM EDT us Nishi Campa LABOR 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 LAB BLOOD ORDERABLES Ann l Result [facility] LAB [address] [place] [id number], [place] * Potassium (09/15/2024 5:34 PM EDT) POTASSIUM 3.8 3.5 - 5.0 mmol/L 09/15/2024 6:16 PM T [facility] MAIN LAB Blood Venous blood / Unknown Venipuncture / Unknown 09/15/2024 5:34 PM EDT 09/15/2024 5:53 PM EDT us Kylie Link MD LAB BLOOD ORDERABLES Final Resul t Performing Organization Address [facility]/ZIP Co de Phone Number [facility] LAB [address] [place] [address], [place] * Ionized calcium (09/15/2024 2:14 PM EDT) IONIZED CALCIUM - ICAN 4.6 4.5 - 5.3 mg/dL 09/15/2024 2:57 PM EDT [facility] LAB Blood Venous blood / Unknown Venipuncture / Unknown 09/15/2024 2:14 PM EDT 09/15/2024 2:18 PM EDT us Iva Romero 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 LAB BLOOD ORDERABLES Fi nal Result Performing Organization Address [facility] Co de Phone Number [facility] [address] [place] [address], [place] * PST TOP (09/15/2024 2:13 PM EDT) Extra Tube Auto Resulted 09/15/2024 4:01 PM EDT [facility] LAB Blood Venous blood / Unknown Venipuncture / Unknown 09/15/2024 2:13 PM EDT 09/15/2024 2:19 PM EDT us Kylie Link MD LAB BLOOD ORDERABLES Final Resul t Performing Organization Address [facility]/ZIP Co de Phone Number [facility] [address] [place] [address], [place] * Potassium (09/15/2024 10:28 AM EDT) POTASSIUM 3.8 3.5 - 5.0 mmol/L 09/15/2024 11:02 AM EDT [facility] LAB Blood Venous blood / Unknown Venipuncture / Unknown 09/15/2024 10:28 AM EDT 09/15/2024 10:32 AM EDT us Iva Romero 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 LAB BLOOD ORDERABLES Fi nal Result [facility] [address] [place] [address], [place] * (ABNORMAL) Phosphorus (09/15/2024 5:16 AM EDT) PHOSPHORUS 1.4(L) 2.4 - 4.9 mg/dL 09/15/2024 6:13 AM [facility] LAB Blood Venous blood / Unknown Venipuncture / Unknown 09/15/2024 5:16 AM EDT 09/15/2024 5:37 AM EDT Lele Aguila MD LAB BLOOD ORDERABLES Final Resul t Performing Organization Address [facility]/ZIP Co de Phone Number [facility] MAIN LAB [address] [place] [id number], [place] * (ABNORMAL) CBC auto differential (09/15/2024 5:16 AM EDT) Pathologist [facility] WBC 20.3(H) 4 - 11 x10E9/L 09/15/2024 5:44 AM [facility] LAB RBC Count 3.15(L) 3.8 - 5.2 X10E12/L 09/15/2024 5:44 AM [facility] LAB Hemoglobin 9.8(L) 11.7 - 15.5 g/dL 09/15/2024 5:44 AM [facility] LAB Hematocrit 28.6(L) 35 - 47 % 09/15/2024 5:44 AM [facility] LAB MCV 91 80 - 100 fL 09/15/2024 5:44 AM [facility] LAB MCH 31.1 27 - 34 pg 09/15/2024 5:44 AM [facility] LAB MCHC 34.2 32 - 36 g/dL 09/15/2024 5:44 AM [facility] LAB RDW 14.5 11.5 - 15 % 09/15/2024 5:44 AM [facility] LAB Platelet Count 329 150 - 450 X10E9/L 09/15/2024 5:44 AM [facility] LAB MPV 8.1 7 - 12 fL 09/15/2024 5:44 AM [facility] LAB Neutrophils % 82.6 % 09/15/2024 5:44 AM [facility] LAB Lymphocytes % 8.8 % 09/15/2024 5:44 AM [facility] LAB Monocytes % 6.1 % 09/15/2024 5:44 AM [facility] LAB Eosinophils % 2.2 % 09/15/2024 5:44 AM [facility] LAB Basophils % 0.3 % 09/15/2024 5:44 AM [facility] LAB Neutrophils Absolute (A) 16.8(H) 1.5 - 6.6 10*3/uL 09/15/2024 5:44 AM [facility] LAB Lymphocytes Absolute 1.8 1.0 - 3.5 10*3/uL 09/15/2024 5:44 AM [facility] LAB Monocytes Absolute 1.2(H) 0.0 - 0.9 10*3/uL 09/15/2024 5:44 AM [facility] LAB Eosinophils Absolute 0.4 0.0 - 0.4 10*3/uL 09/15/2024 5:44 AM [facility] LAB Basophils Absolute 0.1 0.0 - 0.2 10*3/uL 09/15/2024 5:44 AM [facility] LAB Differential Type AUTOMATED DIFFERENTIAL 09/15/2024 5:44 AM [facility] LAB Blood Venous blood / Unknown Venipuncture / Unknown 09/15/2024 5:16 AM EDT 09/15/2024 5:38 AM EDT us Abed Nadia [employer]OR [employer]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 LAB BLOOD ORDERABLES Final Result [facility] MA[facility] LAB [address] [place] [address], * (ABNORMAL) Magnesium (09/15/2024 5:16 AM EDT) MAGNESIUM 2.8(H) 1.8 - 2.6 mg/dL 09/15/2024 6:13 AM [facility] LAB Blood Venous blood / Unknown Venipuncture / Unknown 09/15/2024 5:16 AM EDT 09/15/2024 5:37 AM EDT us Torito Zuniga LABOR [employer]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 LAB BLOOD ORDERABLES Final Result [facility] LAB [address] [place] [address], * (ABNORMAL) Comprehensive metabolic panel (09/15/2024 5:16 AM EDT) SODIUM 141 134 - 146 mmol/L 09/15/2024 6:13 AM [facility] LAB POTASSIUM 3.6 3.5 - 5.0 mmol/L 09/15/2024 6:13 AM [facility] LAB CHLORIDE 104 98 - 109 mmol/L 09/15/2024 6:13 AM [facility] LAB CARBON DIOXIDE 34(H) 22 - 32 mmol/L 09/15/2024 6:13 AM [facility] LAB ANION GAP 3(L) 5 - 15 mmol/L 09/15/2024 6:13 AM [facility] LAB BLOOD UREA NITROGEN 26 5 - 27 mg/dL 09/15/2024 6:13 AM [facility] LAB CREATININE 0.63 0.40 - 1.00 mg/dL 09/15/2024 6:13 AM [facility] MAIN LAB Comment:METHOD TRACEABLE TO IDMS STANDARD GLUCOSE 116(H) 65 - 99 mg/dL 09/15/2024 6:13 AM [facility] LAB CALCIUM 7.9(L) 8.5 - 10.5 mg/dL 09/15/2024 6:13 AM [facility] LAB TOTAL PROTEIN 5.7(L) 6.0 - 8.0 g/dL 09/15/2024 6:13 AM [facility] LAB ALBUMIN 3.1(L) 3.2 - 5.3 g/dL 09/15/2024 6:13 AM [facility] MA[facility] LAB ALKALINE PHOSPHATASE 76 39 - 130 U/L 09/15/2024 6:13 AM [facility] MA[facility] LAB AST 12 <=41 U/L 09/15/2024 6:13 AM EDT [facility] MAIN LAB ALT 8 <=31 U/L 09/15/2024 6:13 AM EDT [facility] MAIN LAB BILIRUBIN,TOTAL 0.7 0.3 - 1.2 mg/dL 09/15/2024 6:13 AM EDT [facility] LAB EGFR Non-Race Dependent >90 >=60 ml/min/1.7 3sq.m 09/15/2024 6:13 AM EDT [facility]IN LAB Comment: Reported eGFR is based on the CKD-EPI 2020 equation that does not use a race coefficient. Blood Venous blood / Unknown Venipuncture / Unknown 09/15/2024 5:16 AM EDT 09/15/2024 5:37 AM EDT us Torito Zuniga LABOR E[employer]OM[employer]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 LAB BLOOD ORDERABLES Final Result Performing Organization Address City/[facility]/ZIP Co de Phone Number [facility] LAB [address] [place] [address], [place] * (ABNORMAL) Ionized calcium (09/15/2024 5:16 AM EDT) IONIZED CALCIUM - ICAN 4.4(L) 4.5 - 5.3 mg/dL 09/15/2024 5:52 AM EDT [facility] LAB Blood Venous blood / Unknown Venipuncture / Unknown 09/15/2024 5:16 AM EDT 09/15/2024 5:37 AM EDT us Nishi Campa LABOR E[employer]OM[employer]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 LAB BLOOD ORDERABLES Ann l Result [facility] [address] [place] [phone], [place] * SST TOP (09/14/2024 1:00 PM EDT) Extra Tube Auto Resulted 09/14/2024 2:02 PM EDT [facility] LAB Blood Venous blood / Unknown 09/14/2024 1:00 PM EDT 09/14/2024 1:03 PM EDT us Kylie Link MD LAB BLOOD ORDERABLES Final Resul t Performing Organization Address [facility] Co de Phone Number [facility] [address] [place] [address], [place] * (ABNORMAL) Ionized calcium (09/14/2024 1:00 PM EDT) IONIZED CALCIUM - ICAN 3.9(L) 4.5 - 5.3 mg/dL 09/14/2024 1:13 PM EDT [facility] LAB Blood Venous blood / Unknown Venipuncture / Unknown 09/14/2024 1:00 PM EDT 09/14/2024 1:02 PM EDT us Nishi Campa LABOR [employer]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 LAB BLOOD ORDERABLES Ann l Result Performing Organization Address [facility] Co de Phone Number [facility] [address] [place] [phone], [place] * X-ray abdomen ap 1 view (09/14/2024 11:51 AM EDT) Anatomical Region Laterality Modality Body, Abdomen N/A Computed Radiogr aphy 09/14/2024 11:5 2 AM EDT Narrative 09/14/2024 11:53 AM EDT XR ABDOMEN AP 1 VW: 09/14/2024 11:49 AM Clinical: Worsening abdominal pain. EXAM: ABDOMEN RADIOGRAPH Views: Supine portable exam Comparison: None Findings: Residual contrast present in the colon. Mild gaseous small bowel distention to 3 cm. No abnormal calcifications. Lumbar and bilateral hip degenerative changes. Impression: * Mild gaseous nonspecific small bowel dilatation. Follow-up recommended. Finalized by Adriano Jeffrey MD on 09/14/2024 11:53 AM Procedure Note Adriano Jeffrey MD - 09/14/2024 XR ABDOMEN AP 1 VW: 09/14/2024 11:49 AM Clinical: Worsening abdominal pain. EXAM: ABDOMEN RADIOGRAPH Views: Supine portable exam Comparison: None Findings: Residual contrast present in the colon. Mild gaseous small bowel distention to 3 cm. No abnormal calcifications. Lumbar and bilateral hip degenerative changes. Impression: * Mild gaseous nonspecific small bowel dilatation. Follow-uprecommended. Finalized by Adriano Jeffrey MD on 09/14/2024 11:53 AM Felicia Pickens MD IMG DIAGNOSTIC IMAGING ORDERAB LES Final Result * Potassium (09/14/2024 10:27 AM EDT) POTASSIUM 3.5 3.5 - 5.0 mmol/L 09/14/2024 11:00 AM EDT [facility] LAB Blood Venous blood / Unknown Port / Unknown 09/14/2024 10:27 AM EDT 09/14/2024 10:30 AM EDT us Nishi Ruby Campa LABOR E[employer]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 LAB BLOOD ORDERABLES Ann l Result Performing Organization Address [facility]/ZIP Co de Phone Number [facility] [address] [place] [address], [place] * (ABNORMAL) Ionized calcium (09/14/2024 4:15 AM EDT) IONIZED CALCIUM - ICAN 3.8(L) 4.5 - 5.3 mg/dL 09/14/2024 4:32 AM EDT [facility] LAB Blood Venous blood / Unknown Venipuncture / Unknown 09/14/2024 4:15 AM EDT 09/14/2024 4:26 AM EDT Nishi Beltran Campa LABOR E[employer]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 LAB BLOOD ORDERABLES Ann l Result [facility] [address] [place], [place] [id number], [place] * Phosphorus (09/14/2024 4:15 AM EDT) PHOSPHORUS 3.1 2.4 - 4.9 mg/dL 09/14/2024 5:13 AM EDT [facility] Blood Venous blood / Unknown Venipuncture / Unknown 09/14/2024 4:15 AM EDT 09/14/2024 4:25 AM EDT us Lele Aguila MD LAB BLOOD ORDERABLES Final Resul t Performing Organization Address [facility]/ZIP Co de Phone Number [facility] [address] [place] [address], [place] * (ABNORMAL) Magnesium (09/14/2024 4:15 AM EDT) MAGNESIUM 2.8(H) 1.8 - 2.6 mg/dL 09/14/2024 5:13 AM [facility] LAB Blood Venous blood / Unknown Venipuncture / Unknown 09/14/2024 4:15 AM EDT 09/14/2024 4:25 AM EDT us Torito CEJA LAB BLOOD ORDERABLES Final Result Performing Organization Address [facility] Co de Phone Number [facility] [address] [place] [address], [place] * (ABNORMAL) Comprehensive metabolic panel (09/14/2024 4:15 AM EDT) SODIUM 137 134 - 146 mmol/L 09/14/2024 5:14 AM [facility] LAB POTASSIUM 2.8(L) 3.5 - 5.0 mmol/L 09/14/2024 5:14 AM [facility] LAB CHLORIDE 95(L) 98 - 109 mmol/L 09/14/2024 5:14 AM [facility] LAB CARBON DIOXIDE 32 22 - 32 mmol/L 09/14/2024 5:14 AM [facility] LAB ANION GAP 10 5 - 15 mmol/L 09/14/2024 5:14 AM [facility] LAB BLOOD UREA NITROGEN 79(H) 5 - 27 mg/dL 09/14/2024 5:14 AM [facility] LAB CREATININE 1.15(H) 0.40 - 1.00 mg/dL 09/14/2024 5:14 AM [facility] MAIN LAB Comment:METHOD TRACEABLE TO IDMS STANDARD GLUCOSE 161(H) 65 - 99 mg/dL 09/14/2024 5:14 AM [facility] LAB CALCIUM 6.9(LL) 8.5 - 10.5 mg/dL 09/14/2024 5:14 AM [facility] LAB TOTAL PROTEIN 5.7(L) 6.0 - 8.0 g/dL 09/14/2024 5:14 AM [facility] LAB ALBUMIN 3.1(L) 3.2 - 5.3 g/dL 09/14/2024 5:14 AM [facility] LAB ALKALINE PHOSPHATASE 72 39 - 130 U/L 09/14/2024 5:14 AM [facility] LAB AST 14 <=41 U/L 09/14/2024 5:14 AM [facility] LAB ALT 8 <=31 U/L 09/14/2024 5:14 AM [facility] LAB BILIRUBIN,TOTAL 0.5 0.3 - 1.2 mg/dL 09/14/2024 5:14 AM [facility] LAB EGFR Non-Race Dependent 54(L) >=60 ml/min/1.7 3sq.m 09/14/2024 5:14 AM [facility] LAB Comment: Reported eGFR is based on the CKD-EPI 2020 equation that does not use a race coefficient. Blood Venous blood / Unknown Venipuncture / Unknown 09/14/2024 4:15 AM EDT 09/14/2024 4:25 AM EDT us Abed Nadia LABOR E[employer]OM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 LAB BLOOD ORDERABLES Final Result [facility] [address] [place] [id number], * (ABNORMAL) CBC auto differential (09/14/2024 4:07 AM EDT) WBC 22.3(H) 4 - 11 x10E9/L 09/14/2024 4:21 AM [facility] LAB RBC Count 3.32(L) 3.8 - 5.2 X10E12/L 09/14/2024 4:21 AM [facility] LAB Hemoglobin 10.3(L) 11.7 - 15.5 g/dL 09/14/2024 4:21 AM [facility] LAB Hematocrit 29.7(L) 35 - 47 % 09/14/2024 4:21 AM [facility] LAB MCV 90 80 - 100 fL 09/14/2024 4:21 AM [facility] LAB MCH 31.0 27 - 34 pg 09/14/2024 4:21 AM [facility] LAB MCHC 34.6 32 - 36 g/dL 09/14/2024 4:21 AM [facility] LAB RDW 14.9 11.5 - 15 % 09/14/2024 4:21 AM [facility] LAB Platelet Count 283 150 - 450 X10E9/L 09/14/2024 4:21 AM [facility] LAB MPV 8.2 7 - 12 fL 09/14/2024 4:21 AM [facility] LAB Neutrophils % 88.3 % 09/14/2024 4:21 AM [facility] LAB Lymphocytes % 5.5 % 09/14/2024 4:21 AM [facility] LAB Monocytes % 5.4 % 09/14/2024 4:21 AM [facility] LAB Eosinophils % 0.6 % 09/14/2024 4:21 AM [facility] LAB Basophils % 0.2 % 09/14/2024 4:21 AM [facility] LAB Neutrophils Absolute (A) 19.7(H) 1.5 - 6.6 10*3/uL 09/14/2024 4:21 AM [facility] LAB Lymphocytes Absolute 1.2 1.0 - 3.5 10*3/uL 09/14/2024 4:21 AM [facility] Monocytes Absolute 1.2(H) 0.0 - 0.9 10*3/uL 09/14/2024 4:21 AM [facility] Eosinophils Absolute 0.1 0.0 - 0.4 10*3/uL 09/14/2024 4:21 AM [facility] Basophils Absolute 0.0 0.0 - 0.2 10*3/uL 09/14/2024 4:21 AM [facility] Differential Type AUTOMATED DIFFERENTIAL 09/14/2024 4:21 AM [facility] Blood Venous blood / Unknown Venipuncture / Unknown 09/14/2024 4:07 AM EDT 09/14/2024 4:15 AM EDT us Torito CEJA LAB BLOOD ORDERABLES Final Result [facility] [address] [place] [address], [place] * Rheumatoid factor (09/14/2024 4:07 AM EDT) Pathologist [facility] RHEUMATOID FACTOR 14 <20 IU/mL 09/14/2024 8:19 AM EDT [facility] Blood Venous blood / Unknown Venipuncture / Unknown 09/14/2024 4:07 AM EDT 09/14/2024 4:15 AM EDT us Lele Aguila MD LAB BLOOD ORDERABLES Final Resul t Performing Organization Address City/[facility]/ZIP Co de Phone Number [facility] [address] [place] [address], [place] [phone] * Proteinase 3 AB PR3 (09/14/2024 4:07 AM EDT) [facility] PROTEINASE 3 IGG AB <0.2 <1.0 AI 09/16/2024 10:21 AM EDT [facility] Blood Venous blood / Unknown Venipuncture / Unknown 09/14/2024 4:07 AM EDT 09/14/2024 4:15 AM EDT us Lele Aguila MD LAB BLOOD ORDERABLES Final Resul t [facility] [address] [place] [address], [place] [phone] * (ABNORMAL) Protein electrophoresis, serum (09/14/2024 4:07 AM EDT) [facility] TOTAL PROTEIN 5.1(L) 6.0 - 8.0 g/dL 09/17/2024 5:32 AM EDT [facility] ALPHA 1 GLOBULIN 0.5(H) 0.1 - 0.4 g/dL 09/17/2024 5:32 AM EDT [facility] ALPHA 2 GLOBULIN 0.9 0.4 - 1.1 g/dL 09/17/2024 5:32 AM EDT [facility] BETA GLOBULIN 0.6 0.5 - 1.2 g/dL 09/17/2024 5:32 AM EDT [facility] GAMMA GLOBULIN 0.6 0.5 - 1.6 g/dL 09/17/2024 5:32 AM EDT [facility] Protein Electrophoresis Interp See Pathology Report 09/17/2024 5:32 AM EDT [facility] Albumin 2.5(L) 3.4 - 5.3 g/dL 09/17/2024 5:32 AM EDT [facility] Blood Venous blood / Unknown Venipuncture / Unknown 09/14/2024 4:07 AM EDT 09/14/2024 4:15 AM EDT us Lele Aguila MD LAB BLOOD ORDERABLES Final Resul t [facility] [address] [place] [address], [place] [phone] * Myeloperoxidase AB (09/14/2024 4:07 AM EDT) MYELOPEROXIDASE AB <0.2 <1.0 AI 2024 10:21 AM EDT [facility] Blood Venous blood / Unknown Venipuncture / Unknown 09/14/2024 4:07 AM EDT 09/14/2024 4:15 AM EDT us Lele Aguila MD LAB BLOOD ORDERABLES Final Resul t [facility] [address] [place] [address], [place] [phone] * Hepatitis C(HCV) Ab w/ Reflex to PCR (09/14/2024 4:07 AM EDT) ANTI HCV W/PCR REFLX Non-Reacti ve Non-Reacti ve 09/14/2024 12:47 PM EDT [facility] Comment: If recent infection suspected, recommend repeat testing (>2 months). [id number] ratio is <1.0. Blood Venous blood / Unknown Venipuncture / Unknown 09/14/2024 4:07 AM EDT 09/14/2024 4:15 AM EDT us Lele Aguila MD LAB BLOOD ORDERABLES Final Resul t Performing Organization Address City/[facility]/ZIP Co de Phone Number [facility] [address] [place] [address], [place] [phone] * Hepatitis B Surface Antibody Quantitation (09/14/2024 4:07 AM EDT) ANTI HBS QUANT. <3.0 mIU/mL 09/14/2024 12:51 PM EDT [facility] Blood Venous blood / Unknown Venipuncture / Unknown 09/14/2024 4:07 AM EDT 09/14/2024 4:15 AM EDT Narrative [facility] - 09/14/2024 12:51 PM EDT Vaccinated: >=10 mIU/mL, Positive (Immune) Unvaccinated: <10 mIU/mL, Negative (Not Immune) us Lele Aguila MD LAB BLOOD ORDERABLES Final Resul t [facility] [address] [place] [address], [place] [phone] * Hepatitis B surface antigen (09/14/2024 4:07 AM EDT) HEPATITIS B SURF AG Non-Reacti ve Non-Reacti ve 09/14/2024 12:41 PM EDT [facility] Blood Venous blood / Unknown Venipuncture / Unknown 09/14/2024 4:07 AM EDT 09/14/2024 4:15 AM EDT us Lele Aguila MD LAB BLOOD ORDERABLES Final Resul t Performing Organization Address City/[facility]/ZIP Co de Phone Number [facility] [address] [place] [address], [place] [phone] * Glomerular basement membrane IgG AB (09/14/2024 4:07 AM EDT) GBM IGG AB <0.2 <1.0 AI 09/16/2024 11:35 AM EDT [facility] Blood Venous blood / Unknown Venipuncture / Unknown 09/14/2024 4:07 AM EDT 09/14/2024 4:15 AM EDT us Lele Aguila MD LAB BLOOD ORDERABLES Final Resul t Performing Organization Address City/[facility]/ZIP Co de Phone Number [facility] [address] [place] [address], [place] [phone] * Cytoplasmic Neutrophilic Ab (ANCA), S (09/14/2024 4:07 AM EDT) C-ANCA Negative Negative 09/17/2024 2:56 PM EDT [facility] P-ANCA Negative Negative 09/17/2024 2:56 PM EDT [facility] Comment: Negative for cANCA and pANCA patterns by immunofluorescence. ADDITIONAL INFORMATION This test was developed and its performance characteristics determined by [facility] in a manner consistent with CLIA requirements. This test has not been cleared or approved by the U.S. Food and Drug Administration. Test Performed by: [facility] - [address] [address] Respiratory Therapy Manager: Ester Macdonald Ph.D.; CLIA# [id number] Blood Venous blood / Unknown Venipuncture / Unknown 09/14/2024 4:07 AM EDT 09/14/2024 4:15 AM EDT us Lele Aguila MD LAB BLOOD ORDERABLES Final Resul t [facility] [address] [place] [address], [place] * Complement profile (C3 AND C4) (09/14/2024 4:07 AM EDT) Pathologist [facility] COMPLEMENT C3 102 86 - 184 mg/dL 09/14/2024 8:38 AM EDT [facility] COMPLEMENT C4 20 16 - 47 mg/dL 09/14/2024 8:38 AM EDT [facility] Blood Venous blood / Unknown Venipuncture / Unknown 09/14/2024 4:07 AM EDT 09/14/2024 4:15 AM EDT us Lele Aguila MD LAB BLOOD ORDERABLES Final Resul t Performing Organization Address City/[facility]/ZIP Co de Phone Number [facility] [address] [place] [address], [place] [phone] * Anti-Cruz AB IGG (09/14/2024 4:07 AM EDT) [facility] ANTI-CRUZ AB IGG <0.2 <1.0 AI 09/16/2024 10:21 AM EDT [facility] Blood Venous blood / Unknown Venipuncture / Unknown 09/14/2024 4:07 AM EDT 09/14/2024 4:15 AM EDT us Lele Aguila MD LAB BLOOD ORDERABLES Final Resul t [facility] [address] [place] [address], [place] [phone] * KANG Screen w/ Reflex (09/14/2024 4:07 AM EDT) Pathologist [facility] KANG SCREEN W/REFLEX Negative Negative 09/16/2024 11:34 AM EDT [facility] Blood Venous blood / Unknown Venipuncture / Unknown 09/14/2024 4:07 AM EDT 09/14/2024 4:15 AM EDT Narrative [facility] - 09/16/2024 11:34 AM EDT Testing performed using multiplex flow immunoassay. Eleven difference antigens associated with systemic autoimmunie diseases (dsDNA, Sm, Sm/SUPERVISOR FACEPIECE LINE, SUPERVISOR FACEPIECE LINE, Chromatin, SSA, SSB, Niurka-1, Sc170, Ribo P, Centromere B) are included in this sreening tests. us Lele Aguila MD LAB BLOOD ORDERABLES Final Resul t [facility] [address] [place] [address], [place] [phone] * (ABNORMAL) Ionized calcium (09/13/2024 7:48 PM EDT) IONIZED CALCIUM - ICAN 3.9(L) 4.5 - 5.3 mg/dL 09/13/2024 8:01 PM EDT [facility] Blood Venous blood / Unknown Venipuncture / Unknown 09/13/2024 7:48 PM EDT 09/13/2024 7:51 PM EDT us Klyie Link MD LAB BLOOD ORDERABLES Final Resul t [facility] [address] [place] [address], [place] * (ABNORMAL) Sodium (09/13/2024 3:52 PM EDT) SODIUM 133(L) 134 - 146 mmol/L 09/13/2024 4:26 PM EDT [facility] Blood Venous blood / Unknown Venipuncture / Unknown 09/13/2024 3:52 PM EDT 09/13/2024 3:56 PM EDT us Torito Zuniga LABOR ECONOMICS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 LAB BLOOD ORDERABLES Final Result Performing Organization Address [facility]/ZIP Co de Phone Number [facility] [address] [place] [address], [place] * (ABNORMAL) Microalbumin - Albumin: Creatinine Urine Ratio (09/13/2024 3:04 PM EDT) URINE CREATININE,RDM 65.47 mg/dL 09/13/2024 6:17 PM EDT [facility] MALB/CREAT RATIO 35.1(H) 0.0 - 30.0 mg/g 09/13/2024 6:17 PM EDT [facility] MICROALBUMIN, URINE 2.3(H) 0.0 - 1.9 mg/dL 09/13/2024 6:17 PM EDT [facility] Urine 09/13/2024 3:04 PM EDT 09/13/2024 3:13 PM EDT us Lele Aguila MD URINE ORDERABLES Final Result Performing Organization Address [facility] Co de Phone Number [facility] [address] [place] [address], [place] [phone] * (ABNORMAL) Sodium (09/13/2024 2:09 PM EDT) SODIUM 133(L) 134 - 146 mmol/L 09/13/2024 2:53 PM EDT [facility] Blood Venous blood / Unknown Venipuncture / Unknown 09/13/2024 2:09 PM EDT 09/13/2024 2:18 PM EDT us Torito Zuniga APRN-[employer]AR SAL[employer] REP LAB BLOOD ORDERABLES Final Result Performing Organization Address [facility]/ZIP Co de Phone Number [facility] [address] [place] [address], [place] * Vas art doppler lwr bilat mult lev/PVR (09/13/2024 1:27 PM EDT) Anatomical Region Laterality Modality Vascular Bilateral Ultrasound 09/13/2024 1:33 PM EDT Narrative 09/13/2024 6:41 PM EDT Right: Essentially normal PVR waveform contour at the ankle level. PT MUKUL is 1.10; DP MKUUL is 1.09. Multiphasic with diastolic flow reversal common femoral, PT and DP, CW Doppler waveforms. Left: Essentially normal PVR waveform contour at the ankle level. PT MUKUL is 1.13; DP MUKUL is 1.13. Multiphasic with diastolic flow reversal common femoral, PT and DP, CW Doppler waveforms. General: In-patient, beside examination. Conclusions: BILATERAL: Normal lower extremity arterial physiological examination at rest. Recommendations: Any questions prior to finalization, please call the reading physician during normal business hours at the phone number beside their name. Procedure Note Jake Contreras MD - 09/13/2024 Right: Essentially normal PVR waveform contour at the ankle level. PT ABIis 1.10; DP MUKUL is 1.09. Multiphasic with diastolic flow reversal commonfemoral, PT and DP, CW Doppler waveforms. Left: Essentially normal PVR waveform contour at the ankle level. PT ABIis 1.13; DP MUKUL is 1.13. Multiphasic with diastolic flow reversal commonfemoral, PT and DP, CW Doppler waveforms. General: In-patient, beside examination. Conclusions: BILATERAL: Normal lower extremity arterial physiologicalexamination at rest. Recommendations: Any questions prior to finalization, please call thereading physician during normal business hours at the phone number besidetheir name. Laquita Yo MD CV VASCULAR ORDERABLES Final Result * Fluoroscopy swallow motility function (09/13/2024 12:18 PM EDT) Anatomical Region Laterality Modality Chest, Abdomen, Body Radio Fluor oscopy 09/13/2024 12:2 1 PM EDT Narrative 09/13/2024 12:24 PM EDT STUDY: Video fluoroscopic swallow study CLINICAL HISTORY: Oral pharyngeal dysphagia, difficulty swallowing COMPARISON: None. FINDINGS: Video fluoroscopic swallow study was performed in conjunction with members of speech pathology. Barium contrast materials of multiple consistencies were administered. Fluoroscopic reference air kerma was 4.3 mGy. Fluoroscopy time: 40 seconds. No aspiration or penetration visualized across all tested consistencies. These included thin liquids, applesauce, and fruit. IMPRESSION: No aspiration or penetration visualized across all tested consistencies. Please see speech pathologist report for additional details and recommendations. Finalized by Rory Harris MD on 09/13/2024 12:24 PM Procedure Note Rory Harris MD - 09/13/2024 STUDY: Video fluoroscopic swallow study CLINICAL HISTORY: Oral pharyngeal dysphagia, difficulty swallowing COMPARISON: None. FINDINGS: Video fluoroscopic swallow study was performed in conjunction with membersof speech pathology. Barium contrast materials of multiple consistencieswere administered. Fluoroscopic reference air kerma was 4.3 mGy.Fluoroscopy time: 40 seconds. No aspiration or penetration visualized across all tested consistencies.These included thin liquids, applesauce, and fruit. IMPRESSION: No aspiration or penetration visualized across all tested consistencies.Please see speech pathologist report for additional details andrecommendations. Finalized by Rory Harris MD on 09/13/2024 12:24 PM us Kylie Link MD IMG FLUOROSCOPY ORDERABLES Final Result * PST TOP (09/13/2024 8:55 AM EDT) Extra Tube Auto Resulted 09/13/2024 10:02 AM EDT [facility] Blood Venous blood / Unknown Venipuncture / Unknown 09/13/2024 8:55 AM EDT 09/13/2024 9:02 AM EDT us Kylie Link MD LAB BLOOD ORDERABLES Final Resul t [facility] [address] [place] [address], * (ABNORMAL) Ionized calcium (09/13/2024 8:55 AM EDT) IONIZED CALCIUM - ICAN 3.9(L) 4.5 - 5.3 mg/dL 09/13/2024 9:17 AM EDT [facility] Blood Venous blood / Unknown Venipuncture / Unknown 09/13/2024 8:55 AM EDT 09/13/2024 9:00 AM EDT us Lito Pillai PA-C LAB BLOOD ORDERABLES Final R esult Performing Organization Address [facility]/ZIP Co de Phone Number [facility] [address] [place] [address], [place] * (ABNORMAL) Sodium (09/13/2024 8:55 AM EDT) SODIUM 132(L) 134 - 146 mmol/L 09/13/2024 9:36 AM EDT [facility] Blood Venous blood / Unknown Venipuncture / Unknown 09/13/2024 8:55 AM EDT 09/13/2024 9:02 AM EDT Torito CEJA LAB BLOOD ORDERABLES Final Result Performing Organization Address [facility] Co de Phone Number [facility] [address] [place] [address], [place] * (ABNORMAL) Procalcitonin (09/13/2024 4:11 AM EDT) PROCALCITONIN 3.40(H) <0.05 ng/mL 09/13/2024 5:16 AM EDT [facility] Blood Venous blood / Unknown Venipuncture / Unknown 09/13/2024 4:11 AM EDT 09/13/2024 4:32 AM EDT [facility] - 09/13/2024 5:16 AM EDT <0.50 ng/mL - Low risk of severe sepsis and/or septic shock. <2.00 ng/mL - Recommend retesting within 6-24 hours. >2.00 ng/mL - High risk of sepsis and/or septic shock. us Lito Pillai PA-C LAB BLOOD ORDERABLES Final R esult Performing Organization Address [facility]/ZIP Co de Phone Number [facility] [address] [place] [address], [place] * (ABNORMAL) CBC auto differential (09/13/2024 4:11 AM [facility]) WBC 31.5(H) 4 - 11 x10E9/L 09/13/2024 6:03 AM [facility] RBC Count 4.01 3.8 - 5.2 X10E12/L 09/13/2024 6:03 AM [facility] Hemoglobin 12.8 11.7 - 15.5 g/dL 09/13/2024 6:03 AM [facility] Hematocrit 37.0 35 - 47 % 09/13/2024 6:03 AM [facility] MCV 92 80 - 100 fL 09/13/2024 6:03 AM [facility] MCH 31.9 27 - 34 pg 09/13/2024 6:03 AM [facility] MCHC 34.5 32 - 36 g/dL 09/13/2024 6:03 AM [facility] RDW 14.9 11.5 - 15 % 09/13/2024 6:03 AM [facility] Platelet Count 342 150 - 450 X10E9/L 09/13/2024 6:03 AM [facility] MPV 8.2 7 - 12 fL 09/13/2024 6:03 AM [facility] Bands % 13 % 09/13/2024 6:03 AM [facility] Comment:This is an appended report. These results have been appended to a previously preliminary verified report. Neutrophils % 82 % 09/13/2024 6:03 AM [facility] Comment:This is an appended report. These results have been appended to a previously preliminary verified report. Lymphocytes % 1 % 09/13/2024 6:03 AM [facility] Comment:This is an appended report. These results have been appended to a previously preliminary verified report. Monocytes % 4 % 09/13/2024 6:03 AM [facility] Comment:This is an appended report. These results have been appended to a previously preliminary verified report. Neutrophils Absolute (M) 29.9(H) 1.5 - 6.6 10*3/uL 09/13/2024 6:03 AM [facility] Comment:This is an appended report. These results have been appended to a previously preliminary verified report. Lymphocytes Absolute 0.3(L) 1.0 - 3.5 10*3/uL 09/13/2024 6:03 AM [facility] Comment:This is an appended report. These results have been appended to a previously preliminary verified report. Monocytes Absolute 1.3(H) 0.0 - 0.9 10*3/uL 09/13/2024 6:03 AM [facility] Comment:This is an appended report. These results have been appended to a previously preliminary verified report. Toxic Granulation 2+ 09/13/2024 6:03 AM [facility] Comment:This is an appended report. These results have been appended to a previously preliminary verified report. Vacuolated Neutrophils 1+ 09/13/2024 6:03 AM [facility] Comment:This is an appended report. These results have been appended to a previously preliminary verified report. Merrick Cells 109/13/2024 6:03 AM [facility] Comment:This is an appended report. These results have been appended to a previously preliminary verified report. Elliptocytes 1+ 09/13/2024 6:03 AM [facility] Comment:This is an appended report. These results have been appended to a previously preliminary verified report. Acanthocytes 1+ 09/13/2024 6:03 AM [facility] Comment:This is an appended report. These results have been appended to a previously preliminary verified report. Differential Type MANUAL DIFFERENTIAL 09/13/2024 6:03 AM [facility] Comment:This is an appended report. These results have been appended to a previously preliminary verified report. Blood Venous blood / Unknown Venipuncture / Unknown 09/13/2024 4:11 AM EDT 09/13/2024 4:32 AM EDT us Abed Nadia LABOR ECONOMICS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 LAB BLOOD ORDERABLES Final Result [facility] [address] [place] [address], [place] * (ABNORMAL) Magnesium (09/13/2024 4:11 AM EDT) MAGNESIUM 3.1(H) 1.8 - 2.6 mg/dL 09/13/2024 5:06 AM [facility] Blood Venous blood / Unknown Venipuncture / Unknown 09/13/2024 4:11 AM EDT 09/13/2024 4:32 AM EDT us ed Nadia LABOR ECONOMICS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 LAB BLOOD ORDERABLES Final Result [facility] [address] [facility] [place] [address], [place] * (ABNORMAL) Comprehensive metabolic panel (09/13/2024 4:11 AM EDT) SODIUM 130(L) 134 - 146 mmol/L 09/13/2024 5:06 AM [facility] POTASSIUM 4.3 3.5 - 5.0 mmol/L 09/13/2024 5:06 AM [facility] CHLORIDE 103 98 - 109 mmol/L 09/13/2024 5:06 AM [facility] CARBON DIOXIDE 12(L) 22 - 32 mmol/L 09/13/2024 5:06 AM [facility] ANION GAP 15 5 - 15 mmol/L 09/13/2024 5:06 AM [facility] BLOOD UREA NITROGEN 105(H) 5 - 27 mg/dL 09/13/2024 5:06 AM [facility] CREATININE 2.30(H) 0.40 - 1.00 mg/dL 09/13/2024 5:06 AM [facility] Comment:METHOD TRACEABLE TO IDMS STANDARD GLUCOSE 188(H) 65 - 99 mg/dL 09/13/2024 5:06 AM [facility] CALCIUM 7.2(L) 8.5 - 10.5 mg/dL 09/13/2024 5:06 AM [facility] TOTAL PROTEIN 7.1 6.0 - 8.0 g/dL 09/13/2024 5:06 AM [facility] ALBUMIN 3.8 3.2 - 5.3 g/dL 09/13/2024 5:06 AM [facility] ALKALINE PHOSPHATASE 84 39 - 130 U/L 09/13/2024 5:06 AM [facility] AST 15 <=41 U/L 09/13/2024 5:06 AM [facility] ALT 10 <=31 U/L 09/13/2024 5:06 AM [facility] BILIRUBIN,TOTAL 0.2(L) 0.3 - 1.2 mg/dL 09/13/2024 5:06 AM [facility] EGFR Non-Race Dependent 24(L) >=60 ml/min/1.7 3sq.m 09/13/2024 5:06 AM [facility] Comment: Reported eGFR is based on the CKD-EPI 2020 equation that does not use a race coefficient. Blood Venous blood / Unknown Venipuncture / Unknown 09/13/2024 4:11 AM EDT 09/13/2024 4:32 AM EDT us ed Nadia LABOR ECONOMICS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 LAB BLOOD ORDERABLES Final Result [facility] [address] [place], [place] [id number], * Drug Screen, Urine (09/13/2024 12:31 AM EDT) AMPHETAMINE/METHAMP Negative Negative 09/13 1:11 AM [facility] Comment:AMPH/METH screening cut off = 1000 ng/mL COCAINE METABOLITE Negative Negative 2024 1:11 AM [facility] Comment:Cocaine screening cu t off value = 300 ng/mL ECSTASY Negative Negative 09/13/2024 1:11 AM [facility] Comment:Ecstasy screening cu t off value = 500 ng/mL METHADONE Negative Negative 09/13/2024 1:11 AM [facility] Comment:Methadone screening cut off value = 300 ng/mL. OPIATES Negative Negative 09/13/2024 1:11 AM [facility] Comment: Opiates screening cut off value = 300 ng/mL This test is used for the detection of codeine, hydrocodone (>1000 ng/mL), morphine and hydromorphone (>900 ng/mL) in urine. OXYCODONE Negative Negative 09/13/2024 1:11 AM [facility] Comment: Oxycodone screening cut off value = 300 ng/mL This test is used for the detection of oxycodone and oxymorphone in urine. PHENCYCLIDINE Negative Negative 09/13/2024 1:11 AM [facility] Comment:Phencyclidine screen ing cut off value = 25 ng/mL CANNABINOIDS Negative Negative 09/13/2024 1:11 AM [facility] Comment:Cannabinoids/THC scr eening cut off value = 50 ng/mL Urine Barbiturates Negative Negative 2024 1:11 AM [facility] Comment:Barbiturates screeni ng cut off value = 200 ng/mL BENZODIAZEPINES Negative Negative 1:11 AM [facility] Comment:Benzodiazepines scre ening cut off value = 200 ng/mL Urine 09/13/2024 12:3 1 AM EDT 09/13/2024 12:39 AM EDT us Lito Pillai PA-C URINE ORDERABLES Final Resul t Performing Organization Address [facility]/ZIP Co de Phone Number [facility] [address] [place] [address], [place] * Sodium, urine, random (09/13/2024 12:31 AM EDT) URINE SODIUM,RANDOM 22 mmol/L 09/13/2024 1:11 AM T [facility] Urine 09/13/2024 12:3 1 AM EDT 09/13/2024 12:39 AM EDT us Torito Zuniga LABOR ECONOMICS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 URINE ORDERABLES Final Res ult Performing Organization Address [facility]/ZIP Co de Phone Number [facility] [address] [place] [address], [place] * Osmolality, urine (09/13/2024 12:31 AM EDT) URINE OSMOLALITY 389 300 - 1,300 mOsm/kg H2 09/13/2024 11:12 AM EDT [facility] Urine 09/13/2024 12:3 1 AM EDT 09/13/2024 12:39 AM EDT us Abed Ramadan LABOR ECONOMICS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 URINE ORDERABLES Final Res ult [facility] [address] [place] [address], [place] [phone] * Urine Creatinine,random (09/13/2024 12:31 AM EDT) URINE CREATININE,RDM 51.96 mg/dL 09/13/2024 1:11 AM EDT [facility] Urine Urine / Unknown 09/13/2024 1 2:31 AM EDT 09/13/2024 12:39 AM EDT us Abed Ramadan LABOR ECONOMICS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 URINE ORDERABLES Final Res ult [facility] [address] [place] [address], [place] * (ABNORMAL) Blood gas, venous (09/12/2024 10:39 PM EDT) Sample type VENOUS 09/12/2024 10:42 PM T [facility] pH, Venous 7.163(L) 7.320 - 7.420 09/12/2024 10:42 PM [facility] pCO2, Venous 20.1(L) 35.0 - 50.0 mmHg 09/12/2024 10:42 PM [facility] pO2, Venous 62(H) 30 - 50 mmHg 09/12/2024 10:42 PM T [facility] Base, Deficit -19.0(L) 0.0 - 2.0 mmol/L 09/12/2024 10:42 PM T [facility] HCO3, Venous 7.2(L) 20.0 - 24.0 mmol/L 09/12/2024 10:42 PM EDT [facility] %O2 Saturation, Venous 85.0 % 09/12/2024 10:42 PM T [facility] Gilberto's test N/A 09/12/2024 10:42 PM EDT [facility] SPO2 100 % 09/12/2024 10:42 PM [facility] Sample site N/A 09/12/2024 10:42 PM T [facility] Insp. O2 conc. 21 % 09/12/2024 10:42 PM T [facility] Source Of Oxygen Room Air 09/12/2024 10:42 PM [facility] venous Venous blood / Unknown 09/12/2024 10:39 PM EDT 09/12/2024 10:42 PM EDT us Kylie Link MD LAB BLOOD ORDERABLES Final Resul t Performing Organization Address City/[facility]/ZIP Co de Phone Number [facility] [facility] [address] [place], [place] [id number], [place] * (ABNORMAL) Myoglobin, serum (09/12/2024 10:30 PM EDT) SERUM MYOGLOBIN 68.8(H) 14.3 - 65.8 ng/mL 09/12/2024 11:11 PM T [facility] Blood Venous blood / Unknown Venipuncture / Unknown 09/12/2024 10:30 PM EDT 09/12/2024 10:34 PM EDT us Lito Pillai PA-C LAB BLOOD ORDERABLES Final R esult Performing Organization Address City/[facility]/ZIP Co de Phone Number [facility] [address] [place], [place] [id number], [place] * CK Total (09/12/2024 10:30 PM EDT) CPK 34 24 - 170 U/L 09/12/2024 10:58 PM EDT [facility] Blood Venous blood / Unknown Venipuncture / Unknown 09/12/2024 10:30 PM EDT 09/12/2024 10:34 PM EDT us Lito CORTEZ-C LAB BLOOD ORDERABLES Final R esult [facility] [address] [place] [id number], [place] * Lactate w/ Reflex (09/12/2024 10:30 PM EDT) LACTATE W/REFLEX 1.4 0.4 - 2.0 mmol/L 09/12/2024 10:52 PM EDT [facility] Blood Venous blood / Unknown Venipuncture / Unknown 09/12/2024 10:30 PM EDT 09/12/2024 10:34 PM EDT Narrative [facility] - 09/12/2024 10:52 PM EDT Result did not trigger repeat Lactate, re-order if needed. us Lito Pillai PA-C LAB BLOOD ORDERABLES Final R esult Performing Organization Address [facility]/ZIP Co de Phone Number [facility] [address] [place] [id number], [place] * (ABNORMAL) Basic Metabolic Panel (09/12/2024 10:30 PM EDT) SODIUM 127(L) 134 - 146 mmol/L 09/12/2024 10:58 PM EDT [facility] POTASSIUM 4.9 3.5 - 5.0 mmol/L 09/12/2024 10:58 PM T [facility] CHLORIDE 102 98 - 109 mmol/L 09/12/2024 10:58 PM EDT [facility] CARBON DIOXIDE 10(L) 22 - 32 mmol/L 09/12/2024 10:58 PM T [facility] ANION GAP 15 5 - 15 mmol/L 09/12/2024 10:58 PM EDT [facility] BLOOD UREA NITROGEN 107(H) 5 - 27 mg/dL 09/12/2024 10:58 PM EDT [facility] CREATININE 2.69(H) 0.40 - 1.00 mg/dL 09/12/2024 10:58 PM EDT [facility] Comment:METHOD TRACEABLE TO IDMS STANDARD GLUCOSE 127(H) 65 - 99 mg/dL 09/12/2024 10:58 PM EDT [facility] CALCIUM 7.5(L) 8.5 - 10.5 mg/dL 09/12/2024 10:58 PM EDT [facility] EGFR Non-Race Dependent 20(L) >=60 ml/min/1.7 3sq.m 09/12/2024 10:58 PM EDT [facility] Comment: Reported eGFR is based on the CKD-EPI 2020 equation that does not use a race coefficient. Blood Venous blood / Unknown Venipuncture / Unknown 09/12/2024 10:30 PM EDT 09/12/2024 10:34 PM EDT Lito Pillai PA-C LAB BLOOD ORDERABLES Final R esult [facility] [address] [place] [address], [place] * (ABNORMAL) Osmolality (09/12/2024 10:30 PM EDT) OSMOLALITY 319(H) 280 - 300 mOsm/kg H2 09/13/2024 8:27 AM EDT [facility] Blood Venous blood / Unknown Venipuncture / Unknown 09/12/2024 10:30 PM EDT 09/12/2024 10:34 PM EDT Torito Zuniga LABOR 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 LAB BLOOD ORDERABLES Final Result [facility] [address] [place] [address], [place] [phone] documented in this encounter Visit Diagnoses Diagnosis Sepsis (CMS-HCC)- Primary documented in this encounter Admitting Diagnoses Diagnosis Sepsis (CMS-HCC) documented in this encounter Administered Medications Inactive Administered Medications - up to 3 most recent administrations Medication Order MAR Action Action Date Dose Rate Site acetaminophen (TYLENOL EXTRA STRENGTH) tablet 500 mg 500 mg, oral, Every 6 hours PRN, headaches, temperature greater than 38 C, mild pain - pain scale 1-3, Starting on Pearl 09/12/24 at 2135, [Warning: Total Acetaminophen not to exceed more than 4 grams (4000 mg) in 24 hours] Given 09/14/2024 2:43 AM EDT 500 mg aspirin chewable tablet 81 mg 81 mg, oral, Daily, First dose on Mon09/13/24 at 1500 Given 09/13/2024 3:55 PM EDT 81 mg atorvastatin (LIPITOR) tablet 80 mg 80 mg, oral, Nightly, First dose on Mon09/13/24 at 2200, Look-alike/sound-alike medication - verify indication for use. Given 09/17/2024 9:13 PM EDT 80 mg Given 09/16/2024 9:19 PM EDT 80 mg Given 09/15/2024 9:04 PM EDT 80 mg barium sulfate (VARIBAR PUDDING) 40 % (w/v), 30% (w/w) oral paste 60 mL 60 mL, oral, Once in imaging, contrast, barium sulfate (VARIBAR PUDDING) 40 % (w/v), 30% (w/w) oral paste, Starting on Mon09/13/24 at 1205, For 1 dose Given 09/13/2024 12:07 PM EDT 20 mL barium sulfate (VARIBAR THIN) 81 % (w/w) powder 148 g 148 g, oral, Once in imaging, contrast, barium sulfate (VARIBAR THIN) 40 % (w/v) powder, Starting on Mon09/13/24 at 1205, For 1 dose Given 09/13/2024 12:07 PM EDT 55 g busPIRone (BUSPAR) tablet 10 mg 10 mg, oral, 2 times daily, First dose on Mon09/14/24 at 1430, Look-alike/sound-alike medication - verify indication for use. Avoid grapefruit juice. Given 09/18/2024 9:31 AM EDT 10 mg Given 09/17/2024 9:13 PM EDT 10 mg Given 09/17/2024 10:45 AM EDT 10 mg calcium gluconate 3,000 mg in sodium chloride 0.9 % 100 mL IVPB 3,000 mg, intravenous, at 130 mL/hr, Administer over 60 Minutes, As needed, for ionized calcium level less than 3 mg/dL, Starting on Mon09/13/24 at 0515, CALL PHYSICIAN if this dose is administered. Recheck ionized calcium 6 hours after infusion. Hold calcium replacement for phosphorus greater than 5.5 mg/dL. VESICANT (RED) calcium gluconate IVPB 1000 mg/50 mL (20 mg/mL premix) 1,000 mg, intravenous, at 50 mL/hr, Administer over 60 Minutes, As needed, for ionized calcium level 3.5 to 4.4 mg/dL, Starting on Mon09/13/24 at 0515, Recheck ionized calcium 6 hours after infusion. Hold calcium replacement for phosphorus greater than 5.5 mg/dL. VESICANT (RED) New Bag 09/15/2024 6:28 AM EDT 1,000 mg 50 mL /hr New Bag 09/14/2024 10:52 PM EDT 1,000 mg 50 mL/hr New Bag 09/14/2024 5:35 AM EDT 1,000 mg 50 mL/hr calcium gluconate IVPB 2000 mg/100 mL (20 mg/mL premix) 2,000 mg, intravenous, at 100 mL/hr, Administer over 60 Minutes, As needed, for ionized calcium level 3 to 3.4 mg/dL, Starting on Mon09/13/24 at 0515, Recheck ionized calcium 6 hours after infusion. Hold calcium replacement for phosphorus greater than 5.5 mg/dL. VESICANT (RED) cangrelor (KENGREAL) 50 mg in sodium chloride 0.9 % 250 mL (0.2 mg/mL) infusion 0.75 mcg/kg/min 48.4 kg (10.89 mL/hr, rounded to 10.9 mL/hr), intravenous, Continuous, Starting on Mon09/14/24 at 1445, Administer via a dedicated IV line. Administer bolus volume rapidly (less than 1 minute) via the infusion pump., What is the indication for this medication? Bridging therapy prior to cardiac surgery New Bag 09/17/2024 9:18 PM EDT 0.75 mcg/kg/min 10.9 mL/hr New Bag 09/16/2024 8:47 PM EDT 0.75 mcg/kg/min 10.9 mL/ hr New Bag 09/15/2024 9:03 PM EDT 0.75 mcg/kg/min 10.9 mL/ hr dapagliflozin propanediol (FARXIGA) tablet 10 mg 10 mg, oral, Daily, First dose on 09/18/24 at 1045 Given 09/18/2024 1:26 PM EDT 10 mg dextrose (GLUTOSE) 40 % gel 15 g 15 g, oral, As needed, low blood sugar, blood glucose less than 70 mg/dL, Starting on Pearl 09/12/24 at 2135, If patient conscious and taking PO. If blood glucose is not greater than 70 mg/dL after initial treatment, repeat treatment. dextrose 5 % (D5W) infusion 100 mL/hr, intravenous, Continuous PRN, blood glucose less than 70 mg/dL, Starting on Pearl 09/12/24 at 2135, Use immediately following dextrose 50% or glucagon treatment for patients who are unconscious or NPO. Contact prescriber for additional orders. If blood glucose is not greater than 70 mg/dL after initial treatment, repeat treatment. dextrose 5 % and sodium chloride 0.45 % with KCl 20 mEq/L infusion 75 mL/hr, intravenous, Continuous, Starting on 09/14/24 at 1000, For 1 day Rate/Dose Verify 09/14/2024 3:10 PM EDT 75 mL/hr New Bag 09/14/2024 10:00 AM EDT 75 mL/hr 75 mL/hr dextrose 5 % and sodium chloride 0.9 % with KCl 20 mEq/L infusion 75 mL/hr, intravenous, Continuous, Starting on 09/14/24 at 2245, For 12 hours New Bag 09/14/2024 11:02 PM EDT 75 mL/hr 7 5 mL/hr dextrose 5 % in water 1,000 mL with sodium bicarbonate 8.4 % (1 mEq/mL) 150 mEq infusion 150 mL/hr, intravenous, Continuous, Starting on Pearl 09/12/24 at 2330 New Bag 09/14/2024 12:48 AM EDT 150 mL/hr 150 mL/hr New Bag 09/13/2024 5:22 PM EDT 150 mL/hr 150 mL/hr Rate/Dose Change 09/13/2024 1:54 PM EDT 150 mL/hr 150 mL/ hr dextrose 50 % in water (D50W) 50% solution 25 mL 25 mL, intravenous, As needed, low blood sugar, blood glucose less than 70 mg/dL and unconscious or NPO with IV access, Starting on Pearl 09/12/24 at 2135, Push over 1-3 minutes STAT. If conscious and not NPO, immediately follow with meal tray or high protein (7 grams) snack if tray not available. If NPO, initiate 5% dextrose in water at 100 mL/hr and contact prescriber for additional orders. If blood glucose is not greater than 70 mg/dL after initial treatment, repeat treatment. VESICANT (RED) Warning: HYPERTONIC solution. fentaNYL (SUBLIMAZE) injection 25 mcg 25 mcg, intravenous, Once as needed, severe pain - pain scale 7-10, Starting on Mon09/13/24 at 2351, For 1 dose, For IVP, must be given slow IV Push over 1 to 2 minutes. Look-alike/sound-alike medication - verify indication for use. Given 09/14/2024 12:07 AM EDT 25 mcg gabapentin (NEURONTIN) capsule 300 mg 300 mg, oral, 3 times daily, First dose on Mon09/14/24 at 1430, Look-alike/sound-alike medication - verify indication for use. Given 09/18/2024 1:27 PM EDT 300 mg Given 09/18/2024 5:59 AM EDT 300 mg Given 09/17/2024 9:13 PM EDT 300 mg glucagon HCL injection 1 mg 1 mg, intramuscular, As needed, low blood sugar, blood glucose less than 70 mg/dL and unconscious or NPO without IV access., Starting on Pearl 09/12/24 at 2135, If conscious and not NPO, immediately follow with meal tray or high protein (7Grams) snack if tray not available. If NPO, initiate IV 5% Dextrose/Water at 100 mL/hr and contact prescriber for additional orders. If blood glucose is not greater than 70 mg/dL after initial treatment, repeat treatment. heparin (porcine) injection 5,000 Units 5,000 Units, subcutaneous, Every 12 hours scheduled, First dose (after last modification) on Mon09/13/24 at 0900, Notify prescriber if INR greater than 1.9, hemoglobin less than 10 mg/dL, aPTT greater than 40 seconds, and/or platelet count less than 100,000/mm Look-alike/sound-alike medication - verify indication for use. Observe for bleeding. Given 09/18/2024 9:31 AM EDT 5,000 Units Abdominal Tissue Given 09/17/2024 9:13 PM EDT 5,000 Units A bdominal Tissue Given 09/17/2024 10:46 AM EDT 5,000 Units Abdominal Tissue HYDROmorphone (DILAUDID) injection 0.2 mg 0.2 mg, intravenous, Every 3 hours PRN, Breakthrough pain, Starting on 09/14/24 at 1305, If IV push, administer over over 2 to 3 minutes. Look-alike/sound-alike medication - verify indication for use. Given 09/14/2024 1:30 PM EDT 0.2 mg HYDROmorphone (DILAUDID) injection 0.5 mg 0.5 mg, intravenous, Every 3 hours PRN, Breakthrough pain, Starting on 09/14/24 at 1455, If IV push, administer over over 2 to 3 minutes. Look-alike/sound-alike medication - verify indication for use. Given 09/14/2024 5:04 PM EDT 0.5 mg iohexoL (OMNIPAQUE) 300 mg iodine/mL 100 mL 100 mL, intravenous, Once in imaging, contrast, Starting on Mon09/16/24 at 1421, For 1 dose, VESICANT (RED) Given 09/16/2024 2:21 PM EDT 100 mL iohexoL (OMNIPAQUE) 300 mg iodine/mL 24 mL 24 mL, oral, Once in imaging, contrast, Starting on Mon09/16/24 at 0918, For 1 dose, Call CT department prior to administering oral contrast to confirm appt time Mix Omnipaque with purified water as per dosage guidelines. Administer to patient. Inform CT dept when patient finished drinking. Age guidelines: - 3 months: 5 mL Omni 180 (contact imaging dept for details) + 55 mL water = 60 mL or 2 oz total volume 3 months - 12 months: 6 mL Omni 300 + 114 mL water = 120 mL (4 oz) total volume 1 - 5 years: 12 mL Omni 300 + 228 mL water = 240 mL (8 oz) total volume 6yrs - 10 yrs: 18 mL Omni 300 + 342 mL water = 360 mL (12 oz) total volume 11yrs and older: 24 mL Omni 300 + 456 mL water = 480 mL (16 oz) total volume Patients with a known allergy to contrast media will require a steroid premedication prep prior to oral administration. Redicat can be administered as an alternative. IF PATIENT IS S/P BARIATRIC SURGERY: 1. Early post-op (one to ten days) - When the concern is a leak 30 cc's of contrast should be enough given about [address]t. 2. Late post-op(10 plus days) - The volume given can be about 2/3 the standard amount. The last 1/3 should be given immediately pre-CT. VESICANT (RED) Given 09/16/2024 9:48 AM EDT 24 mL magnesium sulfate IVPB 2000 mg/50 mL in iso-osmotic water (40 mg/mL premix) 2,000 mg, intravenous, at 25 mL/hr, Administer over 120 Minutes, As needed, for magnesium level 1.7 to 1.9 mg/dL or ionized magnesium level 0.45 to 0.5 mmol/L, Starting on Mon09/13/24 at 0515, Use premix solution. Default to ionized magnesium level in cases where patient has both magnesium and ionized magnesium results. If administered, check ionized magnesium (or total magnesium if ionized magnesium unavailable) level 4 hours after infusion. magnesium sulfate IVPB 4000 mg/100 mL in iso-osmotic water (40 mg/mL premix) 4,000 mg, intravenous, at 25 mL/hr, Administer over 240 Minutes, As needed, for magnesium level 1.6 mg/mL or less, or ionized magnesium level 0.44 mmol/L or less, Starting on Mon09/13/24 at 0515, Use premix solution. Default to ionized magnesium level in cases where patient has both magnesium and ionized magnesium results. If administered, check ionized magnesium (or total magnesium if ionized magnesium unavailable) level 4 hours after infusion. New Bag 09/18/2024 9:40 AM EDT 4,000 mg 2 5 mL/hr New Bag 09/17/2024 8:30 AM EDT 4,000 mg 25 mL/hr New Bag 09/16/2024 6:38 AM EDT 4,000 mg 25 mL/hr metoprolol succinate XL (TOPROL XL) 24 hr tablet 12.5 mg 12.5 mg, oral, Daily, First dose on Mon09/18/24 at 1045, Look-alike/sound-alike medication - verify indication for use. Do not crush or chew. Given 09/18/2024 1:26 PM EDT 12.5 mg metroNIDAZOLE (FLAGYL) IVPB 500 mg/100 mL in iso-osmotic sodium chloride (5 mg/mL premix) 500 mg, intravenous, at 100 mL/hr, Administer over 60 Minutes, Every 12 hours, First dose on Mon09/12/24 at 2200, Look-alike/sound-alike medication - verify indication for use., Indication: Intra-abdominal New Bag 09/13/2024 10:24 AM EDT 500 mg 10 0 mL/hr New Bag 09/12/2024 10:41 PM EDT 500 mg 100 mL/hr nicotine (NICODERM CQ) 21 mg/24 hr 1 patch 1 patch, transdermal, Administer over 24 Hours, Daily PRN, smoking cessation, if needed, change to daily., Starting on Mon09/13/24 at 2212, Remove patch prior to MRI procedure as serious vazquez may occur- patch may be reapplied. Remove previous patch, if present, before applying new. Medication Applied 09/14/2024 10:51 PM EDT 1 patch Left Arm Medication Applied 09/13/2024 10:19 PM EDT 1 patch Right Arm nicotine (NICODERM CQ) 21 mg/24 hr 1 patch 1 patch, transdermal, Administer over 24 Hours, Daily, First dose (after last modification) on Mon09/15/24 at 1300, Remove patch prior to MRI procedure as serious vazquez may occur- patch may be reapplied. Remove previous patch, if present, before applying new. Medication Applied 09/18/2024 9:30 AM EDT 1 patch Left Arm Medication Applied 09/17/2024 10:46 AM EDT 1 patch Left Arm Medication Applied 09/16/2024 9:03 AM EDT 1 patch Right Arm ondansetron (PF) (ZOFRAN) injection 4 mg 4 mg, intravenous, Every 4 hours PRN, nausea, vomiting, Starting on Mon09/12/24 at 2135, Intravenous administration preferred to be given over 2-5 minutes. Given 09/14/2024 5:04 PM EDT 4 mg oxyCODONE (ROXICODONE) immediate release tablet 5 mg 5 mg, oral, Every 4 hours PRN, severe pain - pain scale 7-10, moderate pain - pain scale 4-6, Starting on 09/14/24 at 1455, Look-alike/sound-alike medication - verify indication for use. Immediate release. Given 09/14/2024 10:43 PM EDT 5 mg Given 09/14/2024 3:20 PM EDT 5 mg piperacillin-tazobactam (ZOSYN) 3.375 g in sodium chloride 0.9 % 50 mL IVPB W/ADAPTER 3.375 g, intravenous, at 12.5 mL/hr, Administer over 4 Hours, Every 12 hours, First dose on Mon09/13/24 at 1415, Dose adjusted per [facility] approved piperacillin-tazobactam policy. First dose of 3.375 gram to be 4 hours after 4.5 gram dose if frequency is every 8 hours or 8 hours after 4.5 gram dose if frequency is every 12 hours. For Vial-2-Bag: Attach bag and vial to adapter - Use immediately after activating; dissolve drug prior to administration., Indication: Sepsis New Bag 09/14/2024 2:21 AM EDT 3.375 g 12.5 mL/hr New Bag 09/13/2024 2:40 PM EDT 3.375 g 12.5 mL/hr piperacillin-tazobactam (ZOSYN) 3.375 g in sodium chloride 0.9 % 50 mL IVPB W/ADAPTER 3.375 g, intravenous, at 12.5 mL/hr, Administer over 4 Hours, Every 8 hours, First dose (after last modification) on 09/14/24 at 1030, Dose adjusted per [facility] approved piperacillin-tazobactam policy. First dose of 3.375 gram to be 4 hours after 4.5 gram dose if frequency is every 8 hours or 8 hours after 4.5 gram dose if frequency is every 12 hours. For Vial-2-Bag: Attach bag and vial to adapter - Use immediately after activating; dissolve drug prior to administration., Indication: Sepsis New Bag 09/18/2024 1:55 PM EDT 3.375 g 12.5 mL/hr New Bag 09/18/2024 4:58 AM EDT 3.375 g 12.5 mL/hr New Bag 09/17/2024 9:13 PM EDT 3.375 g 12.5 mL/hr potassium chloride (KAYCIEL) 20 mEq/15 mL solution 20-50 mEq 20-50 mEq, oral, As needed, potassium replacement, Starting on Mon09/13/24 at 0515, Progress to oral potassium replacement when patient tolerating oral intake. If dose administered, recheck potassium level 4 hours after last dose. For potassium level 3.4 to 3.8 mmol/L and Serum Creatinine 1.2 or less=30 mEq (22.5mL). For potassium level 3.1 to 3.3 mmol/L and Serum Creatinine 1.2 or less=40 mEq (30mL). For potassium level 3 mmol/L or less and Serum Creatinine 1.2 or less=50 mEq (37.5mL). For potassium level 3.4 to 3.8 mmol/L and Serum Creatinine greater than 1.2=20 mEq (15mL). For potassium level 3.1 to 3.3 mmol/L and Serum Creatinine greater than 1.2=30 mEq (22.5mL). For potassium level 3 mmol/L or less and Serum Creatinine greater than 1.2=40 mEq (30mL). Must dilute before use - Mix in 3-8 ounces of water or juice before administration When administering in feeding tube, flush before and after per policy and monitor potassium levels potassium chloride (KLOR-CON M 20) CR tablet 20-50 mEq 20-50 mEq, oral, As needed, for potassium replacement, Starting on Mon09/13/24 at 0515, Progress to oral potassium replacement when patient tolerating oral intake. If dose administered, recheck potassium level 4 hours after last dose. For potassium level 3.4 to 3.8 mmol/L and Serum Creatinine 1.2 or less=30 mEq. For potassium level 3.1 to 3.3 mmol/L and Serum Creatinine 1.2 or less=40 mEq. For potassium level 3 mmol/L or less and Serum Creatinine 1.2 or less=50 mEq. Forpotassium level 3.4 to 3.8 mmol/L and Serum Creatinine greater than 1.2=20 mEq. For potassium level 3.1 to 3.3 mmol/L and Serum Creatinine greater than 1.2=30 mEq. For potassium level 3 mmol/L or less and Serum Creatinine greater than 1.2=40 mEq. Do not crush or chew. Given 09/18/2024 9:38 AM EDT 30 mEq Given 09/17/2024 2:37 PM EDT 30 mEq Given 09/15/2024 9:05 PM EDT 30 mEq potassium chloride IVPB 10 mEq/100 mL in water (0.1 mEq/mL premix) 10 mEq, intravenous, at 100 mL/hr, Administer over 60 Minutes, As needed, for potassium replacement, Starting on Mon09/13/24 at 0515, Administer Potassium Chloride IVPB in 10 mEq increments. Maximum infusion rates: Central Line = 20 mEq/hour; Peripheral Line = 10 mEq/hour (10 mEq/100 mL). If dose administered, recheck potassium level 1 hour after infusion complete. For potassium level 3.4 to 3.8 mmol/L and Serum Creatinine 1.2 or less = 30 mEq For potassium level 3.1 to 3.3 mmol/L and Serum Creatinine 1.2 or less = 40 mEq For potassium level 3 mmol/L or less and Serum Creatinine 1.2 or less = 50 mEq For potassium level 3.4 to 3.8 mmol/L and Serum Creatinine greater than 1.2 = 20 mEq For potassium level 3.1 to 3.3 mmol/L and Serum Creatinine greater than 1.2 = 30 mEq For potassium level 3 mmol/L or less and Serum Creatinine greater than 1.2 = 40 mEq VESICANT (YELLOW) Infuse each 10 mEq over a minimum of 1 hour. New Bag 09/15/2024 2:53 AM EDT 10 mEq 100 mL/hr New Bag 09/15/2024 1:37 AM EDT 10 mEq 100 mL/hr New Bag 09/15/2024 12:26 AM EDT 10 mEq 100 mL/hr potassium chloride IVPB 10 mEq/50 mL in water (0.2 mEq/mL premix) 10 mEq, intravenous, at 50 mL/hr, Administer over 1 Hours, As needed, for potassium replacement, Starting on Mon09/13/24 at 0515, Administer Potassium Chloride IVPB in 10 mEq increments. Maximum infusion rates: Central Line = 20 mEq/hour. Administer via Central Line Only. If dose administered, recheck potassium level 1 hour after infusion complete. For potassium level 3.4 to 3.8 mmol/L and Serum Creatinine 1.2 or less = 30 mEq For potassium level 3.1 to 3.3 mmol/L and Serum Creatinine 1.2 or less = 40 mEq For potassium level 3 mmol/L or less and Serum Creatinine 1.2 or less = 50 mEq For potassium level 3.4 to 3.8 mmol/L and Serum Creatinine greater than 1.2 = 20 mEq For potassium level 3.1 to 3.3 mmol/L and Serum Creatinine greater than 1.2 = 30 mEq For potassium level 3 mmol/L or less and Serum Creatinine greater than 1.2 = 40 mEq VESICANT (YELLOW) sennosides-docusate sodium (SENOKOT-S) 8.6-50 mg 1 tablet 1 tablet, oral, Every 12 hours PRN, constipation, Starting on Pearl 09/12/24 at 2135 Given 09/14/2024 10:21 AM EDT 1 tablet sodium chloride 0.9 % flush 10 mL 10 mL, intravenous, As needed, line care, Starting on Mon09/16/24 at 1421 Given 09/16/2024 2:22 PM EDT 10 mL sodium chloride 0.9 % radiology injection 80 mL, intravenous, Once in imaging, pre/post contrast, Starting on Mon09/16/24 at 1421, For 1 dose Given 09/16/2024 2:21 PM EDT 80 mL spironolactone (ALDACTONE) tablet 25 mg 25 mg, oral, Daily, First dose on Mon09/18/24 at 1045 Given 09/18/2024 1:27 PM EDT 25 mg thiamine (B-1) 100 mg in sodium chloride 0.9 % 50 mL IVPB 100 mg, intravenous, at 102 mL/hr, Administer over 30 Minutes, Daily, First dose on Mon09/13/24 at 0900, For 3 days, Look-alike/sound-alike medication. Verify indication for use. New Bag 09/15/2024 8:37 AM EDT 100 mg 102 mL/hr New Bag 09/14/2024 10:42 AM EDT 100 mg 102 mL/hr New Bag 09/13/2024 9:08 AM EDT 100 mg 102 mL/hr documented in this encounter Active and Recently Administered Medications Times are shown in EDT. Scheduled Medication Order 09/16/2024 09/17/2024 09/18/2024 atorvastatin (LIPITOR) tablet 80 mg 80 mg, oral, Nightly, First dose on Mon09/13/24 at 2200, Look-alike/sound-alike medication - verify indication for use. 2118 (Given - Provider: Janki York RN) 2112 (Given - Provider: Radha Pace RN) busPIRone (BUSPAR) tablet 10 mg 10 mg, oral, 2 times daily, First dose on 09/14/24 at 1430, Look-alike/sound-alike medication - verify indication for use. Avoid grapefruit juice. 0903 (Given - Provider: Yamilet Simmons RN)2118 (Given - Provider: Janki York RN) 1045 (Given - Provider: Beatriz Sal RN)2112 (Given - Provider: Radha Pace RN) 0931 (Given - Provider: Beatriz Sal RN) clopidogreL (PLAVIX) tablet 600 mg 600 mg, oral, Once, On Mon09/18/24 at 1430, For 1 dose, Look-alike/sound-alike medication - verify indication for use. 1430 (Due) dapagliflozin propanediol (FARXIGA) tablet 10 mg 10 mg, oral, Daily, First dose on Mon09/18/24 at 1045 1326 (Given - Provid er: Beatriz Sal RN) gabapentin (NEURONTIN) capsule 300 mg 300 mg, oral, 3 times daily, First dose on 09/14/24 at 1430, Look-alike/sound-alike medication - verify indication for use. 0621 (Given - Provider: Janki York RN)1307 (Given - Provider: Yamilet Simmons RN)2118 (Given - Provider: Janki York RN) 0539 (Given - Provider: Janki York RN)1437 (Given - Provider: Beatriz Sal RN)2112 (Given - Provider: Radha Pace RN) 0559 (Given - Provider: Radha Pace RN)1327 (Given - Provider: Beatriz Sal RN) heparin (porcine) injection 5,000 Units 5,000 Units, subcutaneous, Every 12 hours scheduled, First dose (after last modification) on Mon09/13/24 at 0900, Notify prescriber if INR greater than 1.9, hemoglobin less than 10 mg/dL, aPTT greater than 40 seconds, and/or platelet count less than 100,000/mm Look-alike/sound-opal e medication - verify indication for use. Observe for bleeding. 0903 (Given - Provider: Yamilet Simmons RN)211 (Given - Provider: Janki York RN) 104 (Given - Provider: Beatriz Sal RN)2113 (Given - Provider: Radha Pace, RN) 0931 (Given - Provider: Beatriz Sal RN) metoprolol succinate XL (TOPROL XL) 24 hr tablet 12.5 mg 12.5 mg, oral, Daily, First dose on Mon09/18/24 at 1045, Look-alike/sound-alike medication - verify indication for use. Do not crush or chew. 1326 (Given - Provid er: Beatriz Sal RN) nicotine (NICODERM CQ) 21 mg/24 hr 1 patch 1 patch, transdermal, Administer over 24 Hours, Daily, First dose (after last modification) on Mon09/15/24 at 1300, Remove patch prior to MRI procedure as serious vazquez may occur- patch may be reapplied. Remove previous patch, if present, before applying new. 0859 (Medication Removed - Provider: Yamilet Simmons RN)09 (Medication Applied - Provider: Yamilet Simmons RN) 0859 (Medication Removed - Provider: Beatriz Sal RN)1046 (Medication Applied - Provider: Beatriz Sal RN) 0930 (Medication Applied - Provider: Beatriz Sal RN)0931 (Medication Removed - Provider: Beatriz Sal RN)1815 (Due: Medication Removed - Provider: Automatic Discharge Provider - Comment: Time automatically adjusted from order being discontinued) piperacillin-tazobacta m (ZOSYN) 3.375 g in sodium chloride 0.9 % 50 mL IVPB W/ADAPTER 3.375 g, intravenous, at 12.5 mL/hr, Administer over 4 Hours, Every 8 hours, First dose (after last modification) on 8/2/25 at 1030, Dose adjusted per [facility] approved piperacillin-tazobacta m policy. First dose of 3.375 gram to be 4 hours after 4.5 gram dose if frequency is every 8 hours or 8 hours after 4.5 gram dose if frequency is every 12 hours. For Vial-2-Bag: Attach bag and vial to adapter - Use immediately after activating; dissolve drug prior to administration., Indication: Sepsis 0211 (New Bag - Provider: Janki York RN)0611 (Stop Bag - Provider: Janki York RN)1132 (New Bag - Provider: Yamilet Simmons RN)1532 (Stop Bag - Provider: Yamilet Simmons, RN)2043 (New Bag - Provider: Janki York RN) 0043 (Stop Bag - Provider: Janki York RN)0334 (New Bag - Provider: Janki York RN)0734 (Stop Bag - Provider: Beatriz Sal RN)1244 (New Bag - Provider: Beatriz Sla RN)1644 (Stop Bag - Provider: Beatriz Sal RN)2113 (New Bag - Provider: Radha Pace, DONTE) 0113 (Stop Bag - Provider: Radha Pace, RN)0458 (New Bag - Provider: Radha Pace, RN)0858 (Stop Bag - Provider: Beatriz Sal, DONTE)1355 (New Bag - Provider: Beatriz Sal RN - Comment: delayed d/t magnesium running)1755 (Due: Stop Bag - Provider: Beatriz Sal, DONTE) spironolactone (ALDACTONE) tablet 25 mg 25 mg, oral, Daily, First dose on Mon09/18/24 at 1045 1327 (Given - Provid er: Beatriz Sal RN) valsartan (DIOVAN) tablet 40 mg 40 mg, oral, 2 times daily, First dose on Mon09/18/24 at 1045, Look-alike/sound-alike medication - verify indication for use. 1045 (Due) Continuous Medication Order 09/16/2024 09/17/2024 09/18/2024 cangrelor (KENGREAL) 50 mg in sodium chloride 0.9 % 250 mL (0.2 mg/mL) infusion (CANCELED) 0.75 mcg/kg/min 48.4 kg (10.89 mL/hr, rounded to 10.9 mL/hr), intravenous, Continuous, Starting on 09/14/24 at 1445, Administer via a dedicated IV line. Administer bolus volume rapidly (less than 1 minute) via the infusion pump., What is the indication for this medication? Bridging therapy prior to cardiac surgery 2046 (New Bag - Provider: Janki York, RN) 2117 (New Bag - Provider: Radha Pace RN) 142 (Stop Bag - Provider: Beatriz Sal RN - Comment: [Order ends at this time. Document the following action when infusion is complete: Stop Bag]) PRN Medication Order 09/16/2024 09/17/2024 09/18/2024 acetaminophen (TYLENOL EXTRA STRENGTH) tablet 500 mg 500 mg, oral, Every 6 hours PRN, headaches, temperature greater than 38 C, mild pain - pain scale 1-3, Starting on Pearl 09/12/24 at 2135, [Warning: Total Acetaminophen not to exceed more than 4 grams (4000 mg) in 24 hours] calcium gluconate 3,000 mg in sodium chloride 0.9 % 100 mL IVPB(Linked Group 1) 3,000 mg, intravenous, at 130 mL/hr, Administer over 60 Minutes, As needed, for ionized calcium level less than 3 mg/dL, Starting on Mon09/13/24 at 0515, CALL PHYSICIAN if this dose is administered. Recheck ionized calcium 6 hours after infusion. Hold calcium replacement for phosphorus greater than 5.5 mg/dL. VESICANT (RED) calcium gluconate IVPB 1000 mg/50 mL (20 mg/mL premix)(Linked Group 1) 1,000 mg, intravenous, at 50 mL/hr, Administer over 60 Minutes, As needed, for ionized calcium level 3.5 to 4.4 mg/dL, Starting on Mon09/13/24 at 0515, Recheck ionized calcium 6 hours after infusion. Hold calcium replacement for phosphorus greater than 5.5 mg/dL. VESICANT (RED) calcium gluconate IVPB 2000 mg/100 mL (20 mg/mL premix)(Linked Group 1) 2,000 mg, intravenous, at 100 mL/hr, Administer over 60 Minutes, As needed, for ionized calcium level 3 to 3.4 mg/dL, Starting on Mon09/13/24 at 0515, Recheck ionized calcium 6 hours after infusion. Hold calcium replacement for phosphorus greater than 5.5 mg/dL. VESICANT (RED) dextrose (GLUTOSE) 40 % gel 15 g 15 g, oral, As needed, low blood sugar, blood glucose less than 70 mg/dL, Starting on Pearl 09/12/24 at 2135, If patient conscious and taking PO. If blood glucose is not greater than 70 mg/dL after initial treatment, repeat treatment. dextrose 5 % (D5W) infusion 100 mL/hr, intravenous, Continuous PRN, blood glucose less than 70 mg/dL, Starting on Pearl 09/12/24 at 2135, Use immediately following dextrose 50% or glucagon treatment for patients who are unconscious or NPO. Contact prescriber for additional orders. If blood glucose is not greater than 70 mg/dL after initial treatment, repeat treatment. dextrose 50 % in water (D50W) 50% solution 25 mL 25 mL, intravenous, As needed, low blood sugar, blood glucose less than 70 mg/dL and unconscious or NPO with IV access, Starting on [place] 09/12/24 at 2135, Push over 1-3 minutes STAT. If conscious and not NPO, immediately follow with meal tray or high protein (7 grams) snack if tray not available. If NPO, initiate 5% dextrose in water at 100 mL/hr and contact prescriber for additional orders. If blood glucose is not greater than 70 mg/dL after initial treatment, repeat treatment. VESICANT (RED) Warning: HYPERTONIC solution. glucagon HCL injection 1 mg 1 mg, intramuscular, As needed, low blood sugar, blood glucose less than 70 mg/dL and unconscious or NPO without IV access., Starting on Pearl 09/12/24 at 2135, If conscious and not NPO, immediately follow with meal tray or high protein (7Grams) snack if tray not available. If NPO, initiate IV 5% Dextrose/Water at 100 mL/hr and contact prescriber for additional orders. If blood glucose is not greater than 70 mg/dL after initial treatment, repeat treatment. HYDROmorphone (DILAUDID) injection 0.5 mg 0.5 mg, intravenous, Every 3 hours PRN, Breakthrough pain, Starting on 09/14/25 at 1455, If IV push, administer over over 2 to 3 minutes. Look-alike/sound-alike medication - verify indication for use. iohexoL (OMNIPAQUE) 300 mg iodine/mL 100 mL (COMPLETED) 100 mL, intravenous, Once in imaging, contrast, Starting on 09/16/24 at 1421, For 1 dose, VESICANT (RED) 1421 (Given - Provider: Haley Subramanian) iohexoL (OMNIPAQUE) 300 mg iodine/mL 24 mL (COMPLETED) 24 mL, oral, Once in imaging, contrast, Starting on 09/16/24 at 0918, For 1 dose, Call CT department prior to administering oral contrast to confirm appt time Mix Omnipaque with purified water as per dosage guidelines. Administer to patient. Inform CT dept when patient finished drinking. Age guidelines: - 3 months: 5 mL Omni 180 (contact imaging dept for details) + 55 mL water = 60 mL or 2 oz total volume 3 months - 12 months: 6 mL Omni 300 + 114 mL water = 120 mL (4 oz) total volume 1 - 5 years: 12 mL Omni 300 + 228 mL water = 240 mL (8 oz) total volume 6yrs - 10 yrs: 18 mL Omni 300 + 342 mL water = 360 mL (12 oz) total volume 11yrs and older: 24 mL Omni 300 + 456 mL water = 480 mL (16 oz) total volume Patients with a known allergy to contrast media will require a steroid premedication prep prior to oral administration. Redicat can be administered as an alternative. IF PATIENT IS S/P BARIATRIC SURGERY: 1. Early post-op (one to ten days) - When the concern is a leak 30 cc's of contrast should be enough given about [address]t. 2. Late post-op(10 plus days) - The volume given can be about 2/3 the standard amount. The last 1/3 should be given immediately pre-CT. VESICANT (RED) 1317 (Given - Provider: Yamilet Simmons RN) magnesium sulfate IVPB 2000 mg/50 mL in iso-osmotic water (40 mg/mL premix)(Linked Group 2) 2,000 mg, intravenous, at 25 mL/hr, Administer over 120 Minutes, As needed, for magnesium level 1.7 to 1.9 mg/dL or ionized magnesium level 0.45 to 0.5 mmol/L, Starting on Mon09/13/24 at 0515, Use premix solution. Default to ionized magnesium level in cases where patient has both magnesium and ionized magnesium results. If administered, check ionized magnesium (or total magnesium if ionized magnesium unavailable) level 4 hours after infusion. 0638 (See Alternative - Provider: Janki York RN)0654 (See Alternative - Provider: Janki York RN)1038 (See Alternative - Provider: Janki York RN) 0830 (See Alternative - Provider: Beatriz Sal RN)1230 (See Alternative - Provider: Beatriz Sal RN) 0940 (See Alternative - Provider: Beatriz Sal RN)1340 (See Alternative - Provider: Beatriz Sal RN) magnesium sulfate IVPB 4000 mg/100 mL in iso-osmotic water (40 mg/mL premix)(Linked Group 2) 4,000 mg, intravenous, at 25 mL/hr, Administer over 240 Minutes, As needed, for magnesium level 1.6 mg/mL or less, or ionized magnesium level 0.44 mmol/L or less, Starting on Mon09/13/24 at 0515, Use premix solution. Default to ionized magnesium level in cases where patient has both magnesium and ionized magnesium results. If administered, check ionized magnesium (or total magnesium if ionized magnesium unavailable) level 4 hours after infusion. 0638 (New Bag - Provider: Janki York RN)0654 (Stop Bag - Provider: Janki York RN)1038 (Canceled Entry - Provider: Janki York RN) 0830 (New Bag - Provider: Beatriz Sal RN)1230 (Stop Bag - Provider: Beatriz Sal RN) 0940 (New Bag - Provider: Beatriz Sal RN)1340 (Stop Bag - Provider: Beatriz Sal RN) ondansetron (PF) (ZOFRAN) injection 4 mg 4 mg, intravenous, Every 4 hours PRN, nausea, vomiting, Starting on Pearl 09/12/24 at 2135, Intravenous administration preferred to be given over 2-5 minutes. oxyCODONE (ROXICODONE) immediate release tablet 5 mg 5 mg, oral, Every 4 hours PRN, severe pain - pain scale 7-10, moderate pain - pain scale 4-6, Starting on Mon09/14/24 at 1455, Look-alike/sound-alike medication - verify indication for use. Immediate release. potassium chloride (KAYCIEL) 20 mEq/15 mL solution 20-50 mEq(Linked Group 3) 20-50 mEq, oral, As needed, potassium replacement, Starting on Mon09/13/24 at 0515, Progress to oral potassium replacement when patient tolerating oral intake. If dose administered, recheck potassium level 4 hours after last dose. For potassium level 3.4 to 3.8 mmol/L and Serum Creatinine 1.2 or less=30 mEq (22.5mL). For potassium level 3.1 to 3.3 mmol/L and Serum Creatinine 1.2 or less=40 mEq (30mL). For potassium level 3 mmol/L or less and Serum Creatinine 1.2 or less=50 mEq (37.5mL). For potassium level 3.4 to 3.8 mmol/L and Serum Creatinine greater than 1.2=20 mEq (15mL). For potassium level 3.1 to 3.3 mmol/L and Serum Creatinine greater than 1.2=30 mEq (22.5mL). For potassium level 3 mmol/L or less and Serum Creatinine greater than 1.2=40 mEq (30mL). Must dilute before use - Mix in 3-8 ounces of water or juice before administration When administering in feeding tube, flush before and after per policy and monitor potassium levels 1437 (See Alternative - Provider: Beatriz Sal RN) 0938 (See Alternative - Provider: Beatriz Sal RN) potassium chloride (KLOR-CON M 20) CR tablet 20-50 mEq(Linked Group 3) 20-50 mEq, oral, As needed, for potassium replacement, Starting on Mon09/13/24 at 0515, Progress to oral potassium replacement when patient tolerating oral intake. If dose administered, recheck potassium level 4 hours after last dose. For potassium level 3.4 to 3.8 mmol/L and Serum Creatinine 1.2 or less=30 mEq. For potassium level 3.1 to 3.3 mmol/L and Serum Creatinine 1.2 or less=40 mEq. For potassium level 3 mmol/L or less and Serum Creatinine 1.2 or less=50 mEq. Forpotassium level 3.4 to 3.8 mmol/L and Serum Creatinine greater than 1.2=20 mEq. For potassium level 3.1 to 3.3 mmol/L and Serum Creatinine greater than 1.2=30 mEq. For potassium level 3 mmol/L or less and Serum Creatinine greater than 1.2=40 mEq. Do not crush or chew. 1437 (Given - Provider: Beatriz Sal RN) 0938 (Given - Provider: Beatriz Sal RN) potassium chloride IVPB 10 mEq/100 mL in water (0.1 mEq/mL premix)(Linked Group 4) 10 mEq, intravenous, at 100 mL/hr, Administer over 60 Minutes, As needed, for potassium replacement, Starting on Mon09/13/24 at 0515, Administer Potassium Chloride IVPB in 10 mEq increments. Maximum infusion rates: Central Line = 20 mEq/hour; Peripheral Line = 10 mEq/hour (10 mEq/100 mL). If dose administered, recheck potassium level 1 hour after infusion complete. For potassium level 3.4 to 3.8 mmol/L and Serum Creatinine 1.2 or less = 30 mEq For potassium level 3.1 to 3.3 mmol/L and Serum Creatinine 1.2 or less = 40 mEq For potassium level 3 mmol/L or less and Serum Creatinine 1.2 or less = 50 mEq For potassium level 3.4 to 3.8 mmol/L and Serum Creatinine greater than 1.2 = 20 mEq For potassium level 3.1 to 3.3 mmol/L and Serum Creatinine greater than 1.2 = 30 mEq For potassium level 3 mmol/L or less and Serum Creatinine greater than 1.2 = 40 mEq VESICANT (YELLOW) Infuse each 10 mEq over a minimum of 1 hour. potassium chloride IVPB 10 mEq/50 mL in water (0.2 mEq/mL premix)(Linked Group 4) 10 mEq, intravenous, at 50 mL/hr, Administer over 1 Hours, As needed, for potassium replacement, Starting on Mon09/13/24 at 0515, Administer Potassium Chloride IVPB in 10 mEq increments. Maximum infusion rates: Central Line = 20 mEq/hour. Administer via Central Line Only. If dose administered, recheck potassium level 1 hour after infusion complete. For potassium level 3.4 to 3.8 mmol/L and Serum Creatinine 1.2 or less = 30 mEq For potassium level 3.1 to 3.3 mmol/L and Serum Creatinine 1.2 or less = 40 mEq For potassium level 3 mmol/L or less and Serum Creatinine 1.2 or less = 50 mEq For potassium level 3.4 to 3.8 mmol/L and Serum Creatinine greater than 1.2 = 20 mEq For potassium level 3.1 to 3.3 mmol/L and Serum Creatinine greater than 1.2 = 30 mEq For potassium level 3 mmol/L or less and Serum Creatinine greater than 1.2 = 40 mEq VESICANT (YELLOW) sennosides-docusate sodium (SENOKOT-S) 8.6-50 mg 1 tablet 1 tablet, oral, Every 12 hours PRN, constipation, Starting on Pearl 09/12/24 at 2135 sodium chloride 0.9 % flush 10 mL 10 mL, intravenous, As needed, line care, Starting on Mon09/16/24 at 1421 1422 (Given - Provider: Haley Subramanian) sodium chloride 0.9 % radiology injection (COMPLETED) 80 mL, intravenous, Once in imaging, pre/post contrast, Starting on Mon09/16/24 at 1421, For 1 dose 1421 (Given - Provider: Haley Subramanian) Linked Groups Order Group 1: calcium gluconate IVPB 1000 mg/50 mL (20 mg/mL premix)Jump to med 1,000 mg, intravenous, at 50 mL/hr, Administer over 60 Minutes, As needed, for ionized calcium level 3.5 to 4.4 mg/dL, Starting on Mon09/13/24 at 0515, Recheck ionized calcium 6 hours after infusion. Hold calcium replacement for phosphorus greater than 5.5 mg/dL. VESICANT (RED) Or calcium gluconate IVPB 2000 mg/100 mL (20 mg/mL premix)Jump to med 2,000 mg, intravenous, at 100 mL/hr, Administer over 60 Minutes, As needed, for ionized calcium level 3 to 3.4 mg/dL, Starting on Mon09/13/24 at 0515, Recheck ionized calcium 6 hours after infusion. Hold calcium replacement for phosphorus greater than 5.5 mg/dL. VESICANT (RED) Or calcium gluconate 3,000 mg in sodium chloride 0.9 % 100 mL IVPBJump to med 3,000 mg, intravenous, at 130 mL/hr, Administer over 60 Minutes, As needed, for ionized calcium level less than 3 mg/dL, Starting on Mon09/13/24 at 0515, CALL PHYSICIAN if this dose is administered. Recheck ionized calcium 6 hours after infusion. Hold calcium replacement for phosphorus greater than 5.5 mg/dL. VESICANT (RED) Group 2: magnesium sulfate IVPB 2000 mg/50 mL in iso-osmotic water (40 mg/mL premix)Jump to med 2,000 mg, intravenous, at 25 mL/hr, Administer over 120 Minutes, As needed, for magnesium level 1.7 to 1.9 mg/dL or ionized magnesium level 0.45 to 0.5 mmol/L, Starting on Mon09/13/24 at 0515, Use premix solution. Default to ionized magnesium level in cases where patient has both magnesium and ionized magnesium results. If administered, check ionized magnesium (or total magnesium if ionized magnesium unavailable) level 4 hours after infusion. Or magnesium sulfate IVPB 4000 mg/100 mL in iso-osmotic water (40 mg/mL premix)Jump to med 4,000 mg, intravenous, at 25 mL/hr, Administer over 240 Minutes, As needed, for magnesium level 1.6 mg/mL or less, or ionized magnesium level 0.44 mmol/L or less, Starting on Mon09/13/24 at 0515, Use premix solution. Default to ionized magnesium level in cases where patient has both magnesium and ionized magnesium results. If administered, check ionized magnesium (or total magnesium if ionized magnesium unavailable) level 4 hours after infusion. Group 3: potassium chloride (KLOR-CON M 20) CR tablet 20-50 mEqJump to med 20-50 mEq, oral, As needed, for potassium replacement, Starting on Mon09/13/24 at 0515, Progress to oral potassium replacement when patient tolerating oral intake. If dose administered, recheck potassium level 4 hours after last dose. For potassium level 3.4 to 3.8 mmol/L and Serum Creatinine 1.2 or less=30 mEq. For potassium level 3.1 to 3.3 mmol/L and Serum Creatinine 1.2 or less=40 mEq. For potassium level 3 mmol/L or less and Serum Creatinine 1.2 or less=50 mEq. Forpotassium level 3.4 to 3.8 mmol/L and Serum Creatinine greater than 1.2=20 mEq. For potassium level 3.1 to 3.3 mmol/L and Serum Creatinine greater than 1.2=30 mEq. For potassium level 3 mmol/L or less and Serum Creatinine greater than 1.2=40 mEq. Do not crush or chew. Or potassium chloride (KAYCIEL) 20 mEq/15 mL solution 20-50 mEqJump to med 20-50 mEq, oral, As needed, potassium replacement, Starting on Mon09/13/24 at 0515, Progress to oral potassium replacement when patient tolerating oral intake. If dose administered, recheck potassium level 4 hours after last dose. For potassium level 3.4 to 3.8 mmol/L and Serum Creatinine 1.2 or less=30 mEq (22.5mL). For potassium level 3.1 to 3.3 mmol/L and Serum Creatinine 1.2 or less=40 mEq (30mL). For potassium level 3 mmol/L or less and Serum Creatinine 1.2 or less=50 mEq (37.5mL). For potassium level 3.4 to 3.8 mmol/L and Serum Creatinine greater than 1.2=20 mEq (15mL). For potassium level 3.1 to 3.3 mmol/L and Serum Creatinine greater than 1.2=30 mEq (22.5mL). For potassium level 3 mmol/L or less and Serum Creatinine greater than 1.2=40 mEq (30mL). Must dilute before use - Mix in 3-8 ounces of water or juice before administration When administering in feeding tube, flush before and after per policy and monitor potassium levels Group 4: potassium chloride IVPB 10 mEq/50 mL in water (0.2 mEq/mL premix)Jump to med 10 mEq, intravenous, at 50 mL/hr, Administer over 1 Hours, As needed, for potassium replacement, Starting on Mon09/13/24 at 0515, Administer Potassium Chloride IVPB in 10 mEq increments. Maximum infusion rates: Central Line = 20 mEq/hour. Administer via Central Line Only. If dose administered, recheck potassium level 1 hour after infusion complete. For potassium level 3.4 to 3.8 mmol/L and Serum Creatinine 1.2 or less = 30 mEq For potassium level 3.1 to 3.3 mmol/L and Serum Creatinine 1.2 or less = 40 mEq For potassium level 3 mmol/L or less and Serum Creatinine 1.2 or less = 50 mEq For potassium level 3.4 to 3.8 mmol/L and Serum Creatinine greater than 1.2 = 20 mEq For potassium level 3.1 to 3.3 mmol/L and Serum Creatinine greater than 1.2 = 30 mEq For potassium level 3 mmol/L or less and Serum Creatinine greater than 1.2 = 40 mEq VESICANT (YELLOW) Or potassium chloride IVPB 10 mEq/100 mL in water (0.1 mEq/mL premix)Jump to med 10 mEq, intravenous, at 100 mL/hr, Administer over 60 Minutes, As needed, for potassium replacement, Starting on Mon09/13/24 at 0515, Administer Potassium Chloride IVPB in 10 mEq increments. Maximum infusion rates: Central Line = 20 mEq/hour; Peripheral Line = 10 mEq/hour (10 mEq/100 mL). If dose administered, recheck potassium level 1 hour after infusion complete. For potassium level 3.4 to 3.8 mmol/L and Serum Creatinine 1.2 or less = 30 mEq For potassium level 3.1 to 3.3 mmol/L and Serum Creatinine 1.2 or less = 40 mEq For potassium level 3 mmol/L or less and Serum Creatinine 1.2 or less = 50 mEq For potassium level 3.4 to 3.8 mmol/L and Serum Creatinine greater than 1.2 = 20 mEq For potassium level 3.1 to 3.3 mmol/L and Serum Creatinine greater than 1.2 = 30 mEq For potassium level 3 mmol/L or less and Serum Creatinine greater than 1.2 = 40 mEq VESICANT (YELLOW) Infuse each 10 mEq over a minimum of 1 hour. documented in this encounter Additional Health Concerns Infection Onset Date Last Indicated Resolved Time Enteric Rule-Out 09/16/2024 09/16/2024 09/16/2024 11:28 PM EDT Assessment Noted Time PHQ-9 Depression Total Score: 3 11/12/19 22 10:00 AM EDT A Body Mass Index follow-up plan has been documented for the patient 06/18/2020 4:09 PM EDT documented as of this encounter Care Teams Drilling Fluids Specialist Relationship Specialty Start Date End Date [facility], [facility] [address] [place] PCP - General Family Medicine 05/07/24 documented as of this encounter
--- OUTSIDE RECORDS SUMMARY | 2024-09-16 09:30 | XMS_ITS ---
Author Organization [facility] vices Address [address] [place], [place] [address] Care Team Providers Care Packing Line Operator Name Role Phone Mere Monteiro Primary Care Provider REASON FOR VISIT Discuss KANG testing results Social History Sex Assigned At : Social History Observation Description Sex Assigned At Female Encounters Encounter Location Date Provider Diagnosis Main [address] [place] [id number] 09/16/2024 Mere Monteiro Plan Of Treatment Next Appt Details Provider Name:Mere Monteiro, 10/03/2024 01:15:00 PM, [address] [place], [id number], Provider Name:Mere Monteiro, 12/26/2024 02:30:00 PM, [address] [place], [id number], Provider Name:Mere Monteiro, 02/04/2025 01:15:00 PM, [address] [facility] [place], [id number], Progress Notes * Alie AJ LDOB: 1960 (64 yo F)Acc No.[id number]:09/16/2024 Medical Note Patient: Shira Alie KURTZ Provider: Danny Monteiro MD :1960 A ge:63 Y S ex:Female Date:09/16/2024 Address:[address] [place] [address], [address] Subjective: * Chief Complaints: * 1 . Discuss KANG testing results. * Medical History: Objective: * Vitals: Assessment: Plan: * Treatment: * Billing Information: * Visit Code: * Procedure Codes: * Electronic signature of Pema Monteiro MD on 09/30/2024 at 11:51 AM EDT Sign off status: Pending * Provider: Danny Monteiro MD Date: 09/16/2024 Generated for Ivy lam/Trae/Torysmitting on: 09/30/2024 11:51 AM EDT
--- OUTSIDE RECORDS SUMMARY | 2024-09-27 04:45 | XMS_ITS ---
Author Organization [facility] vices Address [address] [place], [place] [address] Care Team Providers Care Drum Dyeing Machine Operator Name Role Phone Mere Monteiro Primary Care Provider [phone] Allergies Allergen (clinical drug ingredient) Drug/Non Drug Allergy documented on EMR Reaction Allergy Type Onset Date Status Substance with sulfonamide structure and antibacterial mechanism of action (substance) Sulfa Antibiotics Comments: does not remember Drug Allergy Active Reason For Referral Reason recently discharged from [facility], treated with antibiotic alone. needs f/u Diagnosis 1 Colonic diverticular abscess (K57.20) Referral Organization Main Referring Provider First Name Mere Referring Provider Last Name Cayetano Referring Provider Speciality Internal M edicine Referred Provider [facility] Referred Provider Specialty General Surg jose Referral Priority Routine REASON FOR VISIT Hosp d/c Pro Flower 09/18/24 Kidney issues Medications Medication SIG (Take, Route, Frequency, Duration) Notes Start Date End Date Status Vitamin D 25 MCG (1000 UT) 1 tablet Orally Once a day Not-Taking Thiamine HCl 100 MG 1 tablet Orally Once a day Not-Taking Aspirin 81 81 MG 1 tablet Orally Once a day Not-Taking Vitamin B12 1000 MCG 1 tablet Orally Once a day Not-Taking Effient 10 MG as directed Orally Not-Taking Valtrex 1 GM 2 tablets Orally twice a day; Duration: 1 days As needed cold sores Not-Taking Nicotine 21 MG/24HR 1 patch to skin Transdermal Once a day; Duration: 49 days 06/25/2024 Not-Taking Nicotine 14 MG/24HR 1 patch to skin Transdermal Once a day; Duration: 14 days 06/25/2024 Not-Taking Gabapentin 300 MG 1 tablet Orally four times daily Not-Taking Nicotine 7 MG/24HR 1 patch to skin Transdermal Once a day; Duration: 14 days 06/25/2024 Not-Taking Valsartan 40 MG Oral; Duration: 90 Days Active Clopidogrel Bisulfate 75 MG Oral; Duration: 30 Days Active Gabapentin 400 MG TAKE 1 CAPSULE BY MOUTH 4 TIMES A DAY Oral; Duration: 30 Days Active Folic Acid 1 MG TAKE 1 TABLET BY MOUTH EVERY DAY FOR 90 DAYS; Duration: 90 Active Cyclobenzaprine HCl 10 MG 1 tablet at bedtime as needed Orally Once a day; Duration: 90 days Active Metoprolol Tartrate 25 MG 1 tablet with food Orally Twice a day 12.5mg 12.5 mg Active DULoxetine HCl 60 MG TAKE 1 CAPSULE BY MOUTH EVERY DAY; Duration: 90 Active amLODIPine Besylate 2.5 MG TAKE 1 TABLET BY MOUTH EVERY DAY FOR 90 DAYS; Duration: 90 Active Ibuprofen 600 MG 1 tablet with food or milk as needed Orally twice a day; Duration: 90 days Active Atorvastatin Calcium 10 MG 1 tablet Orally Once a day; Duration: 90 days 05/02/2024 Active Farxiga 10 MG 1 tablet Orally Once a day Active busPIRone HCl 10 MG 1 tablet Orally Twice a day Active Plavix 75 MG 1 tablet Orally Once a day Active busPIRone HCl 10 MG 1 tablet Orally Twice a day; Duration: 90 days Active Social History Sex Assigned At : Social History Observation Description Sex Assigned At Female Problems Problem Type SNOMED Code ICD Code Onset Dates Problem Status W/U Status Risk Notes Problem Colonic diverticular abscess (163464717) Colonic diverticular abscess (K57.20) Active confirmed Vital Signs Temperature 98.1 degrees Fahrenheit 09/28/19 25 Weight 111.7 lbs 09/27/2024 Height 61.00 in 09/27/2024 BMI 21.1 kg/m2 09/27/2024 Blood pressure systolic 107 mm Hg 09/28/19 25 Blood pressure diastolic 67 mm Hg 025 Heart Rate 76 /min 09/27/2024 Respiratory Rate 18 /min 09/27/2024 Oximetry 100 % 09/27/2024 Weight-kg 50.67 kg 09/27/2024 Height-cm 154.94 cm 09/27/2024 Ana Gordon 09/27/2024 0 8:57:43 AM EDT > Encounters Encounter Location Date Provider Diagnosis Main [address] [id number] 09/27/2024 Mere Monteiro Colonic diverticular abscess K57.20 ; Hospital discharge follow-up Z09 and Cigarette nicotine dependence without complication F17.210 Assessments Encounter Date Diagnosis (ICD Code) Assessment Notes Treatment Notes Treatment Clinical Notes Section Notes 09/27/2024 Colonic diverticular abscess (ICD-10 - K57.20) Improved. will refer to general surgery for f/u appt as pt hasnt seen any and it was recommended on discharge 09/27/2024 Hospital discharge follow-up (ICD-10 - Z09) Better. 09/27/2024 Cigarette nicotine dependence without complication (ICD-10 - F17.210) Patient provided with [phone] phone line. Plan Of Treatment Treatment Notes Assessment Notes Colonic diverticular abscess Improved. w ill refer to general surgery for f/u appt as pt hasnt seen any and it was recommended on discharge Hospital discharge follow-up Better. Cigarette nicotine dependenc e without complication Patient provided with [phone] triston ne line. Referrals Referral Date Details 09/27/2024 09/27/2024, recently discharged from [facility], treated with antibiotic alone. needs f/u, [facility] [place] Next Appt Details Follow Up: 1 Week, Reason: d iscuss memory results and depression Provider Name:Mere Monteiro, 10/03/2024 01:15:00 PM, [address] [place], [id number], Provider Name:Mere Monteiro, 12/26/2024 02:30:00 PM, [address] [place], [place], [phone], Provider Name:Mere Monteiro, 02/04/2025 01:15:00 PM, [address] [place], [place], [id number], Progress Notes * Alie AJ LDOB: 1960 (64 yo F)Acc No.[id number]:09/27/2024 Medical Note Patient: Alie CRUZ Provider: Danny Monteiro MD :1960 A ge:64 Y S ex:Female Date:09/27/2024 Address:[address] [facility] [address], [place], [id number] Check In:08:45 AM EST Subjective: * Chief Complaints: * H osp d/c Pro Flower 09/18/24 Kidney issues * HPI: I nterim History: Hospital discharge: Pt was admitted in hospital from 09/12/2024 - 09/18/2024, presented with AMS, initial blood work showed elevated lactate, WBC, low temp, Hb 11, Sodium 122, labs consistent with sepsis. Started on IV antibiotics and fluid bolus. CT abdomen initial showed distended gall bladder and resumes sepsis is sec to intra abdominal source likely cholecystitis. Transferred to [place] for higher level of care. General surgery was consulted who reviwed the CT and reports pt has diverticular abscess in lower pelvis but looks too small for IR drainage and recommend to continue with antibiotic and monitor closely with no surgical intervention. Pt continue to improved and discharge with plan to f/u in 2 weeks with general surgery. Presented today for f/u: She feels good today. Denies any abdominal pain, nausea, vomiting, diarrhea and constipation. Last BM this morning. No bleeding in stool. Eating well. Unaware about general surgery appt. * ROS: N egative except mentioned above in the HPI. * Medical History: * Surgical History: C esarean Section - 3 or more Rotator Cuff Repair - Left Tonsillectomy and adenoidectomy RFA injections- several heart cath w 2 stents 05/07/24, 05/09/24 * Hospitalization/Major Diagno stic Procedure: s ee above stemi 2024-[facility] september 2024 * Family History: F ather: . M other: . S on(s): , diagnosed with Heart Disease.?2 son(s) . . * Medications: T akingPlavix 75 MG Tablet 1 tablet Orally Once a day busPIRone HCl 10 MG Tablet 1 tablet Orally Twice a day Farxiga 10 MG Tablet 1 tablet Orally Once a day busPIRone HCl 10 MG Tablet 1 tablet Orally Twice a day Metoprolol Tartrate 25 MG Tablet 1 tablet with food Orally Twice a day 12.5mg, Notes to Pharmacist: 12.5 mgDULoxetine HCl 60 MG Capsule Delayed Release Particles TAKE 1 CAPSULE BY MOUTH EVERY DAY amLODIPine Besylate 2.5 MG Tablet TAKE 1 TABLET BY MOUTH EVERY DAY FOR 90 DAYS Ibuprofen 600 MG Tablet 1 tablet with food or milk as needed Orally twice a day Atorvastatin Calcium 10 MG Tablet 1 tablet Orally Once a day Folic Acid 1 MG Tablet TAKE 1 TABLET BY MOUTH EVERY DAY FOR 90 DAYS Cyclobenzaprine HCl 10 MG Tablet 1 tablet at bedtime as needed Orally Once a day Clopidogrel Bisulfate 75 MG Tablet Oral Gabapentin 400 MG Capsule TAKE 1 CAPSULE BY MOUTH 4 TIMES A DAY Oral Valsartan 40 MG Tablet Oral Taking Plavix 75 MG Tablet 1 tablet Orally Once a day Taking busPIRone HCl 10 MG Tablet 1 tablet Orally Twice a day Taking Farxiga 10 MG Tablet 1 tablet Orally Once a day Taking busPIRone HCl 10 MG Tablet 1 tablet Orally Twice a day Taking Metoprolol Tartrate 25 MG Tablet 1 tablet with food Orally Twice a day 12.5mg, Notes to Pharmacist: 12.5 mgTaking DULoxetine HCl 60 MG Capsule Delayed Release Particles TAKE 1 CAPSULE BY MOUTH EVERY DAY Taking amLODIPine Besylate 2.5 MG Tablet TAKE 1 TABLET BY MOUTH EVERY DAY FOR 90 DAYS Taking Ibuprofen 600 MG Tablet 1 tablet with food or milk as needed Orally twice a day Taking Atorvastatin Calcium 10 MG Tablet 1 tablet Orally Once a day Taking Folic Acid 1 MG Tablet TAKE 1 TABLET BY MOUTH EVERY DAY FOR 90 DAYS Taking Cyclobenzaprine HCl 10 MG Tablet 1 tablet at bedtime as needed Orally Once a day Taking Clopidogrel Bisulfate 75 MG Tablet Oral Taking Gabapentin 400 MG Capsule TAKE 1 CAPSULE BY MOUTH 4 TIMES A DAY Oral Taking Valsartan 40 MG Tablet Oral Not-Taking/PRNValtrex 1 GM Tablet 2 tablets Orally twice a day As needed, Notes to Pharmacist: cold soresGabapentin 300 MG Capsule 1 tablet Orally four times daily Nicotine 21 MG/24HR Patch 24 Hour 1 patch to skin Transdermal Once a day Nicotine 14 MG/24HR Patch 24 Hour 1 patch to skin Transdermal Once a day Nicotine 7 MG/24HR Patch 24 Hour 1 patch to skin Transdermal Once a day Effient 10 MG Tablet as directed Orally Aspirin 81 81 MG Tablet Delayed Release 1 tablet Orally Once a day Vitamin B12 1000 MCG Tablet Extended Release 1 tablet Orally Once a day Vitamin D 25 MCG (1000 UT) Tablet 1 tablet Orally Once a day Thiamine HCl 100 MG Tablet 1 tablet Orally Once a day Medication List reviewed and reconciled with the patientNot-Taking/PRN Valtrex 1 GM Tablet 2 tablets Orally twice a day As needed, Notes to Pharmacist: cold soresNot-Taking/PRN Gabapentin 300 MG Capsule 1 tablet Orally four times daily Not-Taking/PRN Nicotine 21 MG/24HR Patch 24 Hour 1 patch to skin Transdermal Once a day Not-Taking/PRN Nicotine 14 MG/24HR Patch 24 Hour 1 patch to skin Transdermal Once a day Not-Taking/PRN Nicotine 7 MG/24HR Patch 24 Hour 1 patch to skin Transdermal Once a day Not-Taking/PRN Effient 10 MG Tablet as directed Orally Not-Taking/PRN Aspirin 81 81 MG Tablet Delayed Release 1 tablet Orally Once a day Not-Taking/PRN Vitamin B12 1000 MCG Tablet Extended Release 1 tablet Orally Once a day Not-Taking/PRN Vitamin D 25 MCG (1000 UT) Tablet 1 tablet Orally Once a day Not-Taking/PRN Thiamine HCl 100 MG Tablet 1 tablet Orally Once a day Medication List reviewed and reconciled with the patient * Allergies: S ulfa Antibiotics: Comments: does not remember - Allergyno[Allergies Verified] Objective: * Vitals: T emp:98.1F, Wt:111.7lbs, Ht: 61.00 in, BMI:21.1Index, BP:107/67mm Hg, HR:76/min, RR:18/min, Pain scale:01-10, Oxygen sat %:100%, Wt-k.67 kg, Ht-cm: 154.94 cm, Body Surface Area: 1.48. Ana Gordon 09/27/2024 08:57:43 AM EDT >. * Examination: G eneral Examination: [...] movement and no rales, rhonchi or wheezes. Abdomen: soft, non tender Psych: alert and oriented x 3 , cooperative with exam , normal affect / mood , speech is clear and coherent. Assessment: * Assessment: 1. C olonic diverticular abscess - K57.20 (Primary) 2 . H ospital discharge follow-up - Z09 3 . C igarette nicotine dependence without complication - F17.210 Plan: * Treatment: 2. H ospital discharge follow-up Notes: Better. 3. C igarette nicotine dependence without complication Notes: Patient provided with [phone]-Now phone line. * Procedure Codes: 3 078F HTN DIAST BP < 638843O HTN SYST BP < 4446149I PT TOBACCO SCREEN RCVD TLK * Preventive Medicine: Counseling: S moking: Patient counselled on the dangers of tobacco use and urged to quit. 0 09/27/2024 patient not ready to quit * Follow Up: 1 Week (Reason: discuss memory results and depression) * Billing Information: * Visit Code: 28150 Office Visit Est 30-39 minutes. * Procedure Codes: 3078F HTN DIAST BP < 80. 3074F HTN SYST BP < 130. 4004F PT TOBACCO SCREEN RCVD TLK. * Sign off status: Completed true * Provider: Danny Monteiro MD Date: 09/27/2024 Generated for Ednai genaro/Trae/Torysmitting on: 09/30/2024 11:53 AM EDT History and Physical Notes * [...] movement and no rales, rhonchi or wheezes. Abdomen: soft, non tender Psych: alert and oriented x 3 , cooperative with exam , normal affect / mood , speech is clear and coherent. Consultation Request Notes Referral Date Referring Provider Referred Provider Not lexa 09/27/2024 Mere Monteiro [facility] [place], recently discharged from [facility], treated with antibiotic alone. needs f/u
--- OUTSIDE RECORDS SUMMARY | 2024-09-30 11:53 | XMS_ITS | Encounter Summary ---
Author Organization [employer] Address [facility]-[id number] [address] [place] [address] Care Team Providers Care Graphics Coordinator Name Role Phone Services, [facility] Primary Care Provider Encounter Details Date Type Department Care Team ([facility] Contact Info) Description 08/04/2021 Orders Only [facility] [address] [place] [address] Beatriz Ash, SUPERVISOR LATHING-MEDICAL VAN DRIVER [address] [place], [place] [phone] Social History Tobacco Use Types Packs/Day Years [...] [address] [place] [id number] Julianna Hdez MD [address] [place] [address] documented as of this encounter Visit Diagnoses [...] documented as of this encounter Care Teams Graphics Coordinator Relationship Specialty Start Date End Date Services, [facility] [address] [place], [place] PCP - General Family Medicine 05/07/24 documented as of this encounter
--- OUTSIDE RECORDS SUMMARY | 2024-09-30 11:53 | XMS_ITS | Encounter Summary ---
Author Organization [facility]KAI [facility] tem Address [id number] [address] [place] [address] Care Team Providers Care Youth Advocate Name Role Phone Services, [facility] Primary Care Provider Reason for Visit * Reason Comments Med Refill Encounter Details Date Type Department Care Team (Late st Contact Info) Description 10/31/2022 Refill [facility] [address] [place] [address] Mao San PA [address] [place], [place] [phone] Spondylosis of cervical region without myelopathy or [...] requests. The patient must contact our office. [phone] documented in this encounter Plan of Treatment Upcoming Encounters Date Type Department Care Team (Late st Contact Info) Description 10/07/2024 3:15 PM EDT Office Visit [facility] [address] [place] [address] Julianna Hdez MD [address] [place] [address] documented as of this encounter Visit Diagnoses [...] documented as of this encounter Care Teams Youth Advocate Relationship Specialty Start Date End Date [facility], [facility] [address] [place], [place] PCP - General Family Medicine 05/07/24 documented as of this encounter
--- OUTSIDE RECORDS SUMMARY | 2024-09-30 11:53 | XMS_ITS | Encounter Summary ---
Author Organization [employer] Address [facility]-[id number] [address] [place] [address] Care Team Providers Care Product Support Analyst Name Role Phone Services, [facility] Primary Care Provider Reason for Visit * Reason Comments Med Refill Encounter Details Date Type Department Care Team ([facility] st Contact Info) Description 07/15/2021 Refill [facility] [address] [place] [address] Igor Holliday MD [address] [facility]. Provider retired 05/14/24 [place], [place] [phone] Social History Tobacco Use Types Packs/Day Years [...] [address] [place] [address] Julianna Hdez MD [address] [place] [address] documented as of this encounter Visit Diagnoses Not on filedocumented in this encounter Additional Health Concerns Infection Onset Date Last Indicated Resolved Time Enteric Rule-Out 09/16/2024 09/16/2024 09/16/2024 11:28 PM EDT Assessment Noted Time PHQ-9 Depression Total Score: 3 11/03/ 21 2:00 PM EDT A Body Mass Index follow-up plan has been documented for the patient 06/18/2020 4:09 PM EDT documented as of this encounter Care Teams Product Support Analyst Relationship Specialty Start Date End Date Services, [facility] [address] [place], [place] PCP - General Family Medicine 05/07/24 documented as of this encounter
--- OUTSIDE RECORDS SUMMARY | 2024-09-30 11:53 | XMS_ITS | Encounter Summary ---
Author Organization [employer] [facility] tem Address [id number] [address] [place] [address] Care Team Providers Care High School Chemistry Teacher Name Role Phone Services, [facility] Primary Care Provider Encounter Details Date Type Department Care Team ([facility] Contact Info) Description 06/10/2022 Orders Only [facility] [address] [place] [address] Beatriz Ash, SIGN ERECTOR AND REPAIRER-BROADCAST TECHNICIAN [address] [place] [address] Social History Tobacco Use Types Packs/Day Years [...] Upcoming Encounters Date Type Department Care Team ([facility] Contact Info) Description 10/07/2024 3:15 PM EDT Office Visit [facility] [address] [facility] [address] [place] [address] Julianna Hdez MD [address] [place] [address] documented as of this encounter Visit Diagnoses [...] documented as of this encounter Care Teams High School Chemistry Teacher Relationship Specialty Start Date End Date Services, [facility] [address] [place], [place] PCP - General Family Medicine 05/07/24 documented as of this encounter
--- OUTSIDE RECORDS SUMMARY | 2024-09-30 11:53 | XMS_ITS | Clinical Summary ---
Author Organization [facility] Address [address] [place] [address] Care Team Providers Care Electronic Health Records Specialist Name Role Phone Shaikh CARLOTA Byrne Primary Care Provider [phone] Social History Tobacco Use Types Packs/Day Years Used Date Smoking Tobacco: Never Assessed Comments Unknown Sex and Gender Information Value Date Recorded Sex Assigned at Not on file Legal Sex Female 12:18 PM EDT Gender Identity Not on file Sexual Orientation Not on file Plan of Treatment Not on file Insurance [employer] [place] Care Teams Electronic Health Records Specialist Relationship Specialty Start Date End Date FaShaikh pace MD [address] [place] [phone] PCP - General Internal Medicine 05/01/23
--- OUTSIDE RECORDS SUMMARY | 2024-09-30 11:53 | XMS_ITS | Encounter Summary ---
Author Organization [employer] Address [facility]-[id number] [address] [place] [address] Care Team Providers Care Aoc Director Combat Plans Officer Name Role Phone Services, [facility] Primary Care Provider Reason for Visit * Reason Comments Med Refill Encounter Details Date Type Department Care Team ([facility] Contact Info) Description 09/12/2021 Refill [facility] [address] [place] [address] Igor Holliday MD [address]. Provider retired 05/14/24 [place], [place] [phone] Social History Tobacco Use Types Packs/Day Years [...] Upcoming Encounters Date Type Department Care Team ([facility] Contact Info) Description 10/07/2024 3:15 PM EDT Office Visit [facility] [address] [place] [address] Julianna Hdez MD [address] [place] [address] documented as of this encounter [...] documented as of this encounter Care Teams Aoc Director Combat Plans Officer Relationship Specialty Start Date End Date Services, [facility] [address] [place], [place] PCP - General Family Medicine 05/07/24 documented as of this encounter
--- OUTSIDE RECORDS SUMMARY | 2024-09-30 11:53 | XMS_ITS | Encounter Summary ---
Author Organization [employer] Address [id number] [address] [place] [address] Care Team Providers Care Glycerin Operator Name Role Phone Services, [facility] Primary Care Provider Reason for Visit * Reason Comments Med Refill Encounter Details Date Type Department Care Team ([facility] st Contact Info) Description 09/28/2022 Refill [facility] [address] [place] [address] Beatriz Ash APRN-GROUND [employer] [address] [place], [place] [phone] Social History Tobacco Use Types Packs/Day Years [...] [address] [place] [phone] Julianna Hdez MD [address] [place] [address] documented as of this encounter Visit Diagnoses [...] documented as of this encounter Care Teams Glycerin Operator Relationship Specialty Start Date End Date Services, [facility] [address] [place], [place] PCP - General Family Medicine 05/07/24 documented as of this encounter
--- OUTSIDE RECORDS SUMMARY | 2024-09-30 11:53 | XMS_ITS | Encounter Summary ---
Author Organization [facility] [employer] [facility] tem Address [id number] [address] [place] [address] Care Team Providers Care Assistant Softball Coach Name Role Phone Services, [facility] Primary Care Provider Reason for Visit * Reason Comments Med Refill Encounter Details Date Type Department Care Team ([facility] Contact Info) Description 05/28/2022 Refill [facility] [address] [place] [address] Mao San PA [address] [facility], [address]nd [place] [address] Spondylosis of cervical region without myelopathy or [...] [address] [place] [address] Julianna Hdez MD [address] [place] [address] documented as of this encounter Visit Diagnoses [...] documented as of this encounter Care Teams Assistant Softball Coach Relationship Specialty Start Date End Date Services, [facility] [address] [place], [place] PCP - General Family Medicine 05/07/24 documented as of this encounter
--- OUTSIDE RECORDS SUMMARY | 2024-09-30 11:53 | XMS_ITS | Encounter Summary ---
Author Organization [employer] tem Address [facility] [place][id number] [address] [place] [address] Care Team Providers Care Financial Specialist Name Role Phone Services, [facility] Primary Care Provider Reason for Visit * Reason Comments Med Refill Encounter Details Date Type Department Care Team ([facility] st Contact Info) Description 08/17/2022 Refill [facility] [address] [place] [address] Beatriz Ash APRN-ENGINE WATCHMAN [address] [place], [place] [phone] Social History Tobacco Use Types Packs/Day Years [...] [address] [place] [phone] Julianna Hdez MD [address] [place] [address] documented as of this encounter Visit Diagnoses [...] documented as of this encounter Care Teams Financial Specialist Relationship Specialty Start Date End Date Services, [facility] [address] [place], [place] PCP - General Family Medicine 05/07/24 documented as of this encounter
--- OUTSIDE RECORDS SUMMARY | 2024-09-30 11:53 | XMS_ITS | Encounter Summary ---
Author Organization [facility] Address [facility] [id number] [address] [place] [address] Care Team Providers Care Technician Support Engineer Name Role Phone Services, [facility] Primary Care Provider Reason for Visit * Reason Comments Med Refill Encounter Details Date Type Department Care Team (Late Contact Info) Description 06/09/2022 Refill [facility] [address] [place] [address] Beatriz Ash APRN-SURGICAL SERVICES TECH [address] [place], [place] [phone] Social History Tobacco Use Types Packs/Day Years [...] [address] [place] [phone] Julianna Hdez MD [address] [place] [address] documented as of this encounter [...] documented as of this encounter Care Teams Technician Support Engineer Relationship Specialty Start Date End Date Services, [facility] [address] [place], [place] PCP - General Family Medicine 05/07/24 documented as of this encounter
--- OUTSIDE RECORDS SUMMARY | 2024-09-30 11:53 | XMS_ITS | Encounter Summary ---
Author Organization [employer] tem Address [facility] [place][id number] [address] [place] [address] Care Team Providers Care Exhaust And Muffler Repairer Name Role Phone Services, [facility] Primary Care Provider Reason for Visit * Reason Comments Med Refill Encounter Details Date Type Department Care Team ([facility] st Contact Info) Description 07/09/2022 Refill [facility] [address] [place] [address] Beatriz Ash APRN-BASKET BOTTOM MACHINE OPERATOR [address] [place], [place] [phone] Social History Tobacco Use Types Packs/Day Years [...] [address] [place] [phone] Julianna Hdez MD [address] [place] [address] documented as of this encounter Visit Diagnoses [...] documented as of this encounter Care Teams Exhaust And Muffler Repairer Relationship Specialty Start Date End Date Services, [facility] [address] [place], [place] PCP - General Family Medicine 05/07/24 documented as of this encounter
--- OUTSIDE RECORDS SUMMARY | 2024-09-30 11:54 | XMS_ITS | Encounter Summary ---
Author Organization [facility] [employer] [facility] tem Address [facility] [id number] [address] [place] [address] Care Team Providers Care Past Due Accounts Clerk Name Role Phone Services, [facility] Primary Care Provider Reason for Visit * Reason Onset Date Comments Med Refill 02/26/2019 Encounter Details Date Type Department Care Team (Late Contact Info) Description 02/26/2019 Refill [facility] [address] [place] [address] Ceci Day, RN Spondylosis of cervical region without myelopathy [...] Description 10/07/2024 3:15 PM EDT Office Visit [facility] [address] [facility] 1 [place] [address] Julianna Hdez MD [address] [place] [address] documented as of this encounter Visit Diagnoses Diagnosis Spondylosis of cervical region without myelopathy or radiculopathy documented in this encounter Additional Health Concerns Infection Onset Date Last Indicated Resolved Time COVID-19 Positive 09/03/2019 09/03/2019 09/24/2019 11:12 PM EDT Enteric Rule-Out 09/16/2024 09/16/2024 09/16/2024 11:28 PM EDT documented as of this encounter Care Teams Past Due Accounts Clerk Relationship Specialty Start Date End Date Services, [facility] [address] [place], [place] PCP - General Family Medicine 05/07/24 documented as of this encounter
--- OUTSIDE RECORDS SUMMARY | 2024-09-30 11:54 | XMS_ITS | Encounter Summary ---
Author Organization [facility] tem Address [facility] [place]-[id number] [address] [place] [address] Care Team Providers Care Small Arms Repairer Name Role Phone Services, [facility] Primary Care Provider Reason for Visit * Reason Onset Date Comments Med Refill 08/31/2020 Encounter Details Date Type Department Care Team ([facility] Contact Info) Description 08/31/2020 Refill [facility] [address] [place] [address] Deepti Alvares LPN Social History [...] Upcoming Encounters Date Type Department Care Team ([facility] Contact Info) Description 10/07/2024 3:15 PM EDT Office Visit [facility] [address] [place] [phone] Julianna Hdez MD [address] [place] [address] documented as of this encounter Visit Diagnoses [...] documented as of this encounter Care Teams Small Arms Repairer Relationship Specialty Start Date End Date Services, [facility] [address] [place], [place] PCP - General Family Medicine 05/07/24 documented as of this encounter
--- OUTSIDE RECORDS SUMMARY | 2024-09-30 11:54 | XMS_ITS | Encounter Summary ---
Author Organization [employer] tem Address [facility][id number] [address] [place] [address] Care Team Providers Care Silverware Assembler Name Role Phone Services, [facility] Primary Care Provider Encounter Details Date Type Department Care Team ([facility] Contact Info) Description 01/16/2024 Telephone [facility] - Family Medicine [address] [facility] [place] [place] [phone] Jalyn Bernal CMA Social History Tobacco Use [...] [address] [place] [phone] Julianna Hdez MD [address] [place] [address] documented as of this encounter Visit Diagnoses [...] documented as of this encounter Care Teams Silverware Assembler Relationship Specialty Start Date End Date Services, [facility] [address] [place], [place] PCP - General Family Medicine 05/07/24 documented as of this encounter
--- OUTSIDE RECORDS SUMMARY | 2024-09-30 11:54 | XMS_ITS | Encounter Summary ---
Author Organization [employer] tem Address [facility] [place][id number] [address] [place] [address] Care Team Providers Care Asbestos Cement Sheet Supervisor Name Role Phone Services, [facility] Primary Care Provider Encounter Details Date Type Department Care Team ([facility] st Contact Info) Description 07/09/2020 Telephone [facility] [address] [place] [address] Jayson Ríos CNA Social History Tobacco Use [...] [address] [place] [address] Julianna Hdez MD [address] [place] [address] documented as of this encounter Visit Diagnoses [...] documented as of this encounter Care Teams Asbestos Cement Sheet Supervisor Relationship Specialty Start Date End Date [facility], [facility] [address] [place], [place] PCP - General Family Medicine 05/07/24 documented as of this encounter
--- OUTSIDE RECORDS SUMMARY | 2024-09-30 11:54 | XMS_ITS | Encounter Summary ---
Author Organization [facility] [employer] [facility] tem Address [id number] [address] [place] [address] Care Team Providers Care Blocker Polishing Name Role Phone Services, [facility] Primary Care Provider Reason for Visit * Reason Comments Med Refill Encounter Details Date Type Department Care Team (Late st Contact Info) Description 11/27/2022 Refill [facility] [address] [place] [address] Mao San PA [address], 2nd Floor [place], [place] [phone] Spondylosis of cervical region without myelopathy or [...] requests. The patient must contact our office. [phone] documented in this encounter Plan of Treatment Upcoming Encounters Date Type Department Care Team (Late st Contact Info) Description 10/07/2024 3:15 PM EDT Office Visit [facility] [address] [place] [address] Julianna Hdez MD [address] [place] [address] documented as of this encounter Visit Diagnoses [...] documented as of this encounter Care Teams Blocker Polishing Relationship Specialty Start Date End Date [facility], [facility] [address] [place], [place] PCP - General Family Medicine 05/07/24 documented as of this encounter
--- OUTSIDE RECORDS SUMMARY | 2024-09-30 11:54 | XMS_ITS | Encounter Summary ---
Author Organization [facility] tem Address [facility] [place]-[id number] [address] [place] [address] Care Team Providers Care Tool Planer Set Up Operator Name Role Phone Services, [facility] Primary Care Provider Reason for Visit * Reason Comments Med Refill Encounter Details Date Type Department Care Team (Late st Contact Info) Description 12/03/2018 Refill [facility] [address] [place] [address] Mao San PA [address] [facility] [place], [place] [phone] Spondylosis of cervical region without myelopathy or [...] [address] [place] [address] Julianna Hdez MD [address] [place] [address] documented as of this encounter Visit Diagnoses Diagnosis Spondylosis of cervical region without myelopathy or radiculopathy documented in this encounter Additional Health Concerns Infection Onset Date Last Indicated Resolved Time COVID-19 Positive 09/03/2019 09/03/2019 09/24/2019 11:12 PM EDT Enteric Rule-Out 09/16/2024 09/16/2024 09/16/2024 11:28 PM EDT documented as of this encounter Care Teams Tool Planer Set Up Operator Relationship Specialty Start Date End Date Services, [facility] [address] [place], [place] PCP - General Family Medicine 05/07/24 documented as of this encounter
--- OUTSIDE RECORDS SUMMARY | 2024-09-30 11:54 | XMS_ITS | Encounter Summary ---
Author Organization [facility] [employer] tem Address [facility]-[id number] [address] [place] [address] Care Team Providers Care Chemical Equipment Sales Engineer Name Role Phone Services, [facility] Primary Care Provider Encounter Details Date Type Department Care Team ([facility] Contact Info) Description 05/13/2020 Orders Only [facility] [address] [place] [address] Beatriz Ash, VICE PRESIDENT SALES AND MARKETING-PHOTOCOPYING MACHINE OPERATOR [address] [place], [place] [phone] Social History Tobacco Use Types Packs/Day Years [...] Date Type Department Care Team ([facility] Contact Info) Description 10/07/2024 3:15 PM EDT Office Visit [facility] [address] [place] [address] Julianna Hdez MD [address] [place] [address] documented as of this encounter Visit Diagnoses Not on filedocumented in this encounter Additional Health Concerns Infection Onset Date Last Indicated Resolved Time Enteric Rule-Out 09/16/2024 09/16/2024 09/16/2024 11:28 PM EDT documented as of this encounter Care Teams Chemical Equipment Sales Engineer Relationship Specialty Start Date End Date Services, [facility] [address] [place], [place] PCP - General Family Medicine 05/07/24 documented as of this encounter
--- OUTSIDE RECORDS SUMMARY | 2024-09-30 11:54 | XMS_ITS | Encounter Summary ---
Author Organization [facility] tem Address [facility][id number] [address] [place] [address] Care Team Providers Care Medical Auditor Name Role Phone Services, [facility] Primary Care Provider Reason for Visit * Reason Comments Med Refill Encounter Details Date Type Department Care Team (Late st Contact Info) Description 11/16/2018 Refill [facility] [address] [place] [address] Mao San PA [address] [facility] [place], [place] [phone] Spondylosis of cervical region without myelopathy or [...] [address] [place] [address] Julianna Hdez MD [address] [place] [address] documented as of this encounter Visit Diagnoses Diagnosis Spondylosis of cervical region without myelopathy or radiculopathy documented in this encounter Additional Health Concerns Infection Onset Date Last Indicated Resolved Time COVID-19 Positive 09/03/2019 09/03/2019 09/24/2019 11:12 PM EDT Enteric Rule-Out 09/16/2024 09/16/2024 09/16/2024 11:28 PM EDT documented as of this encounter Care Teams Medical Auditor Relationship Specialty Start Date End Date Services, [facility], [facility] [address] [place], [place] PCP - General Family Medicine 05/07/24 documented as of this encounter
--- OUTSIDE RECORDS SUMMARY | 2024-09-30 11:54 | XMS_ITS | Encounter Summary ---
Author Organization [email or web address] tem Address [facility] [place]-[id number] [address] [place] [address] Care Team Providers Care Hairspring Fabrication Supervisor Name Role Phone Services, [facility] Primary Care Provider Reason for Visit * Reason Comments Med Refill Encounter Details Date Type Department Care Team (Late st Contact Info) Description 09/04/2024 Refill [facility] [address] [place] [address] Teagan Carrillo PA-C [address] [place] [address] Med Refill Social History Tobacco Use Types Packs/Day Years Used Date Smoking Tobacco: Every Day Cigarettes Smokeless Tobacco: Never Comments:Patient states she drinks a lot. Alcohol Use Standard Drinks/Week Comments Yes 0 (1 standard drink = 0.6 oz pur e alcohol) [facility] Utilities Answer Date Recorded In the past 12 months has [place], gas, oil, or water [place] threatened to shut off services in your [...] encounter Miscellaneous Notes * Telephone Encounter - Estella Cruz - 09/04/2024 2:26 PM EDT KATY BMP * Telephone Encounter - Estella Cruz - 09/04/2024 2:26 PM EDT Too soon documented in this encounter Plan of Treatment Upcoming Encounters Date Type Department Care Team (Late st Contact Info) Description 10/07/2024 3:15 PM EDT Office Visit [facility] [address] [place] [address] Julianna Hdez MD [address] [place] [address] documented as of this encounter Goals Goal Patient Goal Type Associated Problems Recent Progress Patient-Stated? Author <enter goal here> General Yes Viji Pham, RN Note: Evaluation of progress towards goal: Patient plans for a safe discharge. documented as of this encounter Visit Diagnoses [...] documented as of this encounter Care Teams Hairspring Fabrication Supervisor Relationship Specialty Start Date End Date [facility], [facility] [address] [place], [place] PCP - General Family Medicine 05/07/24 documented as of this encounter
--- OUTSIDE RECORDS SUMMARY | 2024-09-30 11:55 | XMS_ITS | Encounter Summary ---
Author Organization [facility] tem Address [facility] [place]-[id number] [address] [place] [address] Care Team Providers Care Senior Investment Manager Name Role Phone Services, [facility] Primary Care Provider Reason for Visit * Reason Comments Med Refill Encounter Details Date Type Department Care Team (Late st Contact Info) Description 03/12/2020 Refill [facility] [address] [place] [address] Mao San PA [address], [address]nd [address] [place], [place] [address] Spondylosis of cervical region without myelopathy or [...] requests. The patient must contact our office. [phone] documented in this encounter Plan of Treatment Upcoming Encounters Date Type Department Care Team (Late st Contact Info) Description 10/07/2024 3:15 PM EDT Office Visit [facility] [address] [place] [phone] Julianna Hdez MD [address] [place] [address] documented as of this encounter Visit Diagnoses Diagnosis Spondylosis of cervical region without myelopathy or radiculopathy documented in this encounter Additional Health Concerns Infection Onset Date Last Indicated Resolved Time Enteric Rule-Out 09/16/2024 09/16/2024 09/16/2024 11:28 PM EDT documented as of this encounter Care Teams Senior Investment Manager Relationship Specialty Start Date End Date Services, [facility] [address] [place], [place] PCP - General Family Medicine 05/07/24 documented as of this encounter
--- OUTSIDE RECORDS SUMMARY | 2024-09-30 11:55 | XMS_ITS | Encounter Summary ---
Author Organization [facility] tem Address [facility][id number] [address] [place] [address] Care Team Providers Care Pipe And Boiler Covers Supervisor Name Role Phone Services, [facility] Primary Care Provider Reason for Visit * Reason Onset Date Comments Med Refill 05/15/2019 Encounter Details Date Type Department Care Team (Late st Contact Info) Description 05/15/2019 Refill [facility] [address] [place] [address] Naida Bahena, DONTE Spondylosis of [...] OARRS appropriate: Yes Last UDS: NA Pharmacy: [facility] Casi Bahena RN 05/15/19 1307 documented in this encounter Plan of Treatment Upcoming Encounters Date Type Department Care Team (Late st Contact Info) Description 10/07/2024 3:15 PM EDT Office Visit [facility] [address] [place] [address] Julianna Hdez MD [address] [place] [address] documented as of this encounter Visit Diagnoses Diagnosis Spondylosis of cervical region without myelopathy or radiculopathy documented in this encounter Additional Health Concerns Infection Onset Date Last Indicated Resolved Time COVID-19 Positive 09/03/2019 09/03/2019 09/24/2019 11:12 PM EDT Enteric Rule-Out 09/16/2024 09/16/2024 09/16/2024 11:28 PM EDT documented as of this encounter Care Teams Pipe And Boiler Covers Supervisor Relationship Specialty Start Date End Date Services, [facility] [address] [place], [place] PCP - General Family Medicine 05/07/24 documented as of this encounter
--- OUTSIDE RECORDS SUMMARY | 2024-09-30 11:55 | XMS_ITS | Encounter Summary ---
Author Organization [facility] tem Address [facility]-[id number] [address] [place] [address] Care Team Providers Care Home Health Nurse Licensed Practical Name Role Phone Services, [facility] Primary Care Provider Reason for Visit * Reason Onset Date Comments Med Refill 07/30/2019 Encounter Details Date Type Department Care Team ([facility] Contact Info) Description 07/30/2019 Refill [facility] Management [facility] [address] [place] [address] Ceci Day RN Social History Tobacco Use [...] Upcoming Encounters Date Type Department Care Team ([facility] Contact Info) Description 10/07/2024 3:15 PM EDT Office Visit [facility] [address] [place] [address] Julianna Hdez MD [address] [place] [address] documented as of this encounter Visit Diagnoses Not on filedocumented in this encounter Additional Health Concerns Infection Onset Date Last Indicated Resolved Time COVID-19 Positive 09/03/2019 09/03/2019 09/24/2019 11:12 PM EDT Enteric Rule-Out 09/16/2024 09/16/2024 09/16/2024 11:28 PM EDT documented as of this encounter Care Teams Home Health Nurse Licensed Practical Relationship Specialty Start Date End Date Services, [facility] [address] [place], [place] PCP - General Family Medicine 05/07/24 documented as of this encounter
--- OUTSIDE RECORDS SUMMARY | 2024-09-30 11:55 | XMS_ITS | Encounter Summary ---
Author Organization [facility] [employer] [facility] tem Address [id number] [address] [place] [address] Care Team Providers Care Assistant Teaching Professor Name Role Phone Services, [facility] Primary Care Provider Reason for Visit * Reason Onset Date Comments Med Refill 07/29/2019 Encounter Details Date Type Department Care Team (Late st Contact Info) Description 07/29/2019 Refill [facility] [address] [place] [id number] Naida Bahena RN Spondylosis of cervical region [...] appropriate: Yes Last UDS: NA Pharmacy: [facility] [place] Left message on patient's voicemail that she needs an appointment. Naida Bahena RN 07/29/19 1242 documented in this encounter Plan of Treatment Upcoming Encounters Date Type Department Care Team (Late st Contact Info) Description 10/07/2024 3:15 PM EDT Office Visit [facility] [address] [place] [address] Julianna Hdez MD [address] [place] [address] documented as of this encounter Visit Diagnoses Diagnosis Spondylosis of cervical region without myelopathy or radiculopathy documented in this encounter Additional Health Concerns Infection Onset Date Last Indicated Resolved Time COVID-19 Positive 09/03/2019 09/03/2019 09/24/2019 11:12 PM EDT Enteric Rule-Out 09/16/2024 09/16/2024 09/16/2024 11:28 PM EDT documented as of this encounter Care Teams Assistant Teaching Professor Relationship Specialty Start Date End Date Services, [facility] [address] [place], [place] PCP - General Family Medicine 05/07/24 documented as of this encounter
--- OUTSIDE RECORDS SUMMARY | 2024-09-30 11:55 | XMS_ITS | Encounter Summary ---
Author Organization [employer] [facility] tem Address [id number] [address] [place] [address] Care Team Providers Care Almond Cutting Machine Tender Name Role Phone Services, [facility] Primary Care Provider Reason for Visit * Reason Onset Date Comments Med Refill 03/11/2021 Encounter Details Date Type Department Care Team ([facility] st Contact Info) Description 03/11/2021 Refill [facility] [address] [place] [address] Orquidea Cloud CMA Social History [...] [address] [place] [phone] Julianna Hdez MD [address] [place] [address] documented as of this encounter Visit Diagnoses [...] documented as of this encounter Care Teams Almond Cutting Machine Tender Relationship Specialty Start Date End Date Services, [facility] [address] [place], [place] PCP - General Family Medicine 05/07/24 documented as of this encounter
--- OUTSIDE RECORDS SUMMARY | 2024-09-30 11:55 | XMS_ITS | Encounter Summary ---
Author Organization [facility] Address [facility]-[id number] [address] [place] [address] Care Team Providers Care Teradata Solution Architect Name Role Phone Services, [facility] Primary Care Provider Reason for Visit * Reason Comments Med Refill Encounter Details Date Type Department Care Team ([facility] st Contact Info) Description 11/17/2020 Refill [facility] [address] [place] [address] Beatriz Ash, MIKAELA-THIRD OFFICER [address] [place], [place] [id number] Social History Tobacco Use Types Packs/Day Years [...] [address] [place] [phone] Julianna Hdez MD [address] [place] [address] documented as of this encounter Visit Diagnoses [...] documented as of this encounter Care Teams Teradata Solution Architect Relationship Specialty Start Date End Date Services, [facility] [address] [place], [place] PCP - General Family Medicine 05/07/24 documented as of this encounter
--- OUTSIDE RECORDS SUMMARY | 2024-09-30 11:55 | XMS_ITS | Encounter Summary ---
Author Organization [facility] Address [facility] [place]-[id number] [address] [place] [address] Care Team Providers Care Commercial Loan Collection Officer Name Role Phone Services, [facility] Primary Care Provider Reason for Visit * Reason Comments Med Refill Encounter Details Date Type Department Care Team (Late st Contact Info) Description 07/07/2019 Refill [facility] [address] [place] [address] Mao San PA [address] [place], [place] [phone] Spondylosis of cervical region without myelopathy or [...] encounter Miscellaneous Notes * Telephone Encounter - Niada Emrich, RN - 07/07/2019 8:29 AM EDT We do not accept medication refill requests from pharmacies. Patient needs to request refill. documented in this encounter Plan of Treatment Upcoming Encounters Date Type Department Care Team (Late st Contact Info) Description 10/07/2024 3:15 PM EDT Office Visit [facility] [address] [place] [address] Julianna Hdez MD [address] [place] [address] documented as of this encounter Visit Diagnoses Diagnosis Spondylosis of cervical region without myelopathy or radiculopathy documented in this encounter Additional Health Concerns Infection Onset Date Last Indicated Resolved Time COVID-19 Positive 09/03/2019 09/03/2019 09/24/2019 11:12 PM EDT Enteric Rule-Out 09/16/2024 09/16/2024 09/16/2024 11:28 PM EDT documented as of this encounter Care Teams Commercial Loan Collection Officer Relationship Specialty Start Date End Date Services, [facility] [address] [place], [place] PCP - General Family Medicine 05/07/24 documented as of this encounter
--- OUTSIDE RECORDS SUMMARY | 2024-09-30 11:55 | XMS_ITS | Encounter Summary ---
Author Organization [employer] tem Address [id number] [address] [place] [address] Care Team Providers Care Relationship Management Lead Name Role Phone Services, [facility] Primary Care Provider Reason for Visit * Reason Comments Med Refill Encounter Details Date Type Department Care Team ([facility] Contact Info) Description 09/09/2020 Refill [facility] [address] [place] [address] Igor Holliday MD [address] Provider retired 05/14/24 [place], [place] [phone] Social History Tobacco Use Types Packs/Day Years [...] Upcoming Encounters Date Type Department Care Team ([facility] Contact Info) Description 10/07/2024 3:15 PM EDT Office Visit [facility] [address] [place] [address] Julianna Hdez MD [address] [place] [address] documented as of this encounter [...] documented as of this encounter Care Teams Relationship Management Lead Relationship Specialty Start Date End Date Services, [facility] [address] [place], [place] PCP - General Family Medicine 05/07/24 documented as of this encounter
--- OUTSIDE RECORDS SUMMARY | 2024-09-30 11:55 | XMS_ITS | Encounter Summary ---
Author Organization [employer] tem Address [id number] [address] [place] [address] Care Team Providers Care Souvenir And Novelty Maker Name Role Phone Services, [facility] Primary Care Provider Encounter Details Date Type Department Care Team ([facility] st Contact Info) Description 10/14/2020 Telephone [facility] [address] [place] [address] Beatriz Ash, INSPECTOR-MACHINE OPERATOR TRANSPLANTER [address] [place], [place] [phone] Social History Tobacco Use Types Packs/Day Years [...] you can send some medicine in to [facility] in [place] for her Also, how long should I [...] [address] [place] [phone] Julianna Hdez MD [address] [place] [address] documented as of this encounter Visit Diagnoses [...] documented as of this encounter Care Teams Souvenir And Novelty Maker Relationship Specialty Start Date End Date Services, [facility] [address] [place], [place] PCP - General Family Medicine 05/07/24 documented as of this encounter
--- OUTSIDE RECORDS SUMMARY | 2024-09-30 11:55 | XMS_ITS | Encounter Summary ---
Author Organization [facility] Address [id number] [address] [place] [address] Care Team Providers Care Marketing Automation Specialist Name Role Phone Services, [facility] Primary Care Provider Encounter Details Date Type Department Care Team ([facility] Contact Info) Description 03/04/2021 Orders Only [facility] [address] [place] [address] Beatriz Ash, CERTIFIED PEDORTHOTIST-EVP HEAD OF [employer] [address] [place], [place] [phone] Social History Tobacco Use Types Packs/Day Years [...] [address] [place] [address] Julianna Hdez MD [address] [place] [address] documented as of this encounter Visit Diagnoses [...] documented as of this encounter Care Teams Marketing Automation Specialist Relationship Specialty Start Date End Date Services, [facility] [address] [place], [place] PCP - General Family Medicine 05/07/24 documented as of this encounter
--- OUTSIDE RECORDS SUMMARY | 2024-09-30 11:55 | XMS_ITS | Clinical Summary ---
Author Organization [employer] s tem Address [id number] [place] [address] Care Team Providers Care Carbonator Name Role Phone Services, [facility] Primary Care Provider Allergies Active Allergy Reactions [...] mouth in the morning. 05/19/19 25 Active Additional Information Patient not taking.Reported on 09/14/2024 folic acid (FOLVITE) 1 mg tablet Take [...] mouth in the morning. 05/19/19 25 Active aspirin 81 mg chewable tablet Chew 1 tablet (81 mg total) and swallow in the morning for 360 days. 90 tablet 3 06/18/19 25 04/30/2 026 Active atorvastatin (LIPITOR) 80 mg tablet Take 1 tablet (80 mg total) by mouth nightly. 90 tablet 3 06/18/19 25 Active dapagliflozin propanediol (FARXIGA) 10 mg tablet [...] in the morning. 45 tablet 3 06/18/19 25 Active nicotine polacrilex (NICORETTE) 4 MG gumIndications: [...] other tobacco product 100 each 3 06/18/19 25 Active clopidogreL (PLAVIX) 75 mg tablet Take 1 tablet (75 mg total) by mouth in the morning. 30 tablet 1 09/20/19 25 Active prasugreL HCl (EFFIENT) 10 mg tablet Take 1 tablet (10 mg total) by mouth in the morning. 90 tablet 3 06/18/19 25 025 Discontin ued(Stop Taking at Discharge ) Active Problems Problem Noted Date Diagnosed Date Sepsis 09/12/2024 Chronic systolic heart failure 06/17/2024 Mixed hyperlipidemia 05/11/2024 CHB (complete heart block) 05/07/2024 ST elevation myocardial infarction (STEMI) 05/07 Coronary artery disease invo lving [place] coronary artery of [place] heart 05/07/2024 Osteoarthritis of cervical spine 03/14/2018 Overview (03/14/2018): Added automatically from request for surgery [id number] Cervical spondylosis without myelopathy 11/04/19 18 HTN (hypertension) Encounters Date Type Department Care Team Description 09/13/2024 Telephone [facility] [address] [place] [address] Richi Smith, RN orders 09/12/2024 9:16 PM EDT - 09/18/2024 6:15 PM EDT Hospital Encounter [facility] Division of [facility] - 8 Med-Surg/Ortho [address] [place] [address] Kylie Link MD Pothireddy, Ravi P, MD Discharge Disposition: Home Health 09/12/2024 3:27 PM EDT - 09/12/2024 8:14 PM EDT Emergency [facility] [address] [place] [address] Aiden Loredo, EMILY (acute kidney injury) (Primary Dx); Sepsis, due to unspecified organism, unspecified whether acute organ dysfunction present ([facility]) Discharge Disposition: Another Hospital 09/12/2024 Travel 09/11/2024 Telephone [facility] [address] [place] [address] Angela Rendon, RN Life Vest 09/04/2024 Refill [facility] [address] [place] [address] Teagan Carrillo PA-C Med Refill from Last 3 Months Immunizations Immunization Administration [...] drink = 0.6 oz pur e alcohol) [facility] Utilities Answer Date Recorded In the past 12 months has [employer], gas, oil, or water [employer] threatened to shut off services in your [...] Mass Index 21.45 09/13/2024 3:00 AM EDT Plan of Treatment Upcoming Encounters Date Type Department Care Team (Late st Contact Info) Description 10/07/2024 3:15 PM EDT Office Visit [facility] [address] [place] [phone] Julianna Hdez MD [address] [place] [address] Health Maintenance Due Date Last Done Comments Tobacco Counseling 1962 Pap Smear 09/24/1983 Mammogram 2002 Zoster (Shingles) Vaccine (1 of 2) 2012 Depression Screening 11/11/2022 11/11/2021 Influenza Vaccine 10/14/2024 Statin Use: Cardiovascular 06/17/2025 06/17/2024 Tobacco Screening 09/12/2025 09/12/2024 Adult BMI Screening 09/17/2025 09/17/2024 DTaP,Tdap and Td Vaccines (2 - Td or Tdap) 02/02/2030 02/03/2020 Goals Goal Patient Goal Type Associated Problems Recent Progress Patient-Stated? Author <enter goal here> General Yes Viji Pham, RN Note: Evaluation of progress towards goal: Patient plans for a safe discharge. Medical Devices Implanted Type Area Marine Plumber Device Identifier Shelf Expiration Date Model / Serial / Lot System Cor Stnt 2.75mm X 48mm 144cm Synergy Xd Mnrl Sean Pltn - [id number] Implanted:Qty : 1 on 05/07/2024 by Gilberto Zepeda MD at [facility] Stent N/A: Arterial [employer] [id number] 09/25/2025 [id number] / / [id number] System Cor Stnt 2.25mm X 15mm 145cm Xience Skypnt Mtlnk Sean - [id number] Implanted:Qty : 1 on 05/09/2024 by Gilberto Zepeda MD at [facility] Stent N/A: Arterial KINNEY [id number] 02/26/2026 [id number] / / [id number] Procedures Procedure Name Priority Date/Time Associated Diagnosis Comments PHOSPHORUS Routine 09/18/2024 4:51 AM EDT CBC WITH AUTO DIFFERENTIAL Routine 09/18/2024 4:51 AM EDT MAGNESIUM Routine 09/18/2024 4:51 AM EDT COMPREHENSIVE METABOLIC PANEL Routine 09/18/2024 4:51 AM EDT MAGNESIUM Routine 09/17/2024 4:23 PM EDT PHOSPHORUS Routine 09/17/2024 4:33 AM EDT CBC WITH AUTO DIFFERENTIAL Routine 09/17/2024 4:33 AM EDT MAGNESIUM Routine 09/17/2024 4:33 AM EDT COMPREHENSIVE METABOLIC PANEL Routine 09/17/2024 4:33 AM EDT C DIFFICILE BY PCR Routine 09/16/2024 4: [address] ABDOMEN AND PELVIS W CONT STAT 09/16/2024 2:31 PM EDT CLINICAL PATHOLOGY REVIEW Routine 09/16/2024 10:57 AM EDT IONIZED CALCIUM Routine 09/16/2024 4:26 AM EDT PHOSPHORUS Routine 09/16/2024 4:26 AM EDT CBC WITH AUTO DIFFERENTIAL Routine 09/16/2024 4:26 AM EDT MAGNESIUM Routine 09/16/2024 4:26 AM EDT COMPREHENSIVE METABOLIC PANEL Routine 09/16/2024 4:26 AM EDT POTASSIUM Routine 09/15/2024 5:34 PM EDT IONIZED CALCIUM Routine 09/15/2024 2:14 PM EDT EXTRA TUBES PST TOP Routine 09/15/2024 2 :13 PM EDT EXTRA TUBES Routine 09/15/2024 2:13 PM EDT POTASSIUM Routine 09/15/2024 10:28 AM EDT IONIZED CALCIUM Routine 09/15/2024 5:16 AM EDT PHOSPHORUS Routine 09/15/2024 5:16 AM EDT CBC WITH AUTO DIFFERENTIAL Routine 09/15/2024 5:16 AM EDT MAGNESIUM Routine 09/15/2024 5:16 AM EDT COMPREHENSIVE METABOLIC PANEL Routine 09/15/2024 5:16 AM EDT EXTRA TUBES SST TOP Routine 09/14/2024 1 :00 PM EDT EXTRA TUBES Routine 09/14/2024 1:00 PM EDT IONIZED CALCIUM Routine 09/14/2024 1:00 PM EDT XR ABDOMEN AP 1 VW STAT 09/14/2024 11 :51 AM EDT POTASSIUM Routine 09/14/2024 10:27 AM EDT IONIZED CALCIUM Routine 09/14/2024 4:15 AM EDT PHOSPHORUS Routine 09/14/2024 4:15 AM EDT MAGNESIUM Routine 09/14/2024 4:15 AM EDT COMPREHENSIVE METABOLIC PANEL Routine 09/14/2024 4:15 AM EDT RHEUMATOID FACTOR Routine 09/14/2024 4:0 7 AM EDT PROTEINASE 3 AB PR3 Routine 09/14/2024 4 :07 AM EDT PROTEIN ELECTROPHORESIS, SERUM Routine 09/14/2024 4:07 AM EDT MYELOPEROXIDASE AB Routine 09/14/2024 4: 07 AM EDT HEPATITIS C(HCV) ANTIBODY W/REFLEX TO PCR Routine 09/14/2024 4:07 AM EDT HEPATITIS B SURFACE ANTIBODY QUANTITATION Routine 09/14/2024 4:07 AM EDT HEPATITIS B SURFACE ANTIGEN Routine 09/14/2024 4:07 AM EDT GLOMERULAR BASEMENT MEMBRANE IGG AB Routine 09/14/2024 4:07 AM EDT CYTOPLASMIC NEUTROPHILIC AB (ANCA), S Routine 09/14/2024 4:07 AM EDT COMPLEMENT PROFILE (C3 AND C4) Routine 09/14/2024 4:07 AM EDT ANTI-CRUZ ANTIBODY IGG Routine 09/15/19 25 4:07 AM EDT KANG SCREEN W/ REFLEX Routine 09/14/2024 4:07 AM EDT CBC WITH AUTO DIFFERENTIAL Routine 09/14/2024 4:07 AM EDT IONIZED CALCIUM [...] EXTRA TUBES Routine 09/13/2024 8:55 AM EDT IONIZED CALCIUM Routine 09/13/2024 8:55 AM EDT SODIUM Routine 09/13/2024 8:55 AM EDT PROCALCITONIN Routine 09/13/2024 4:11 AM EDT CBC WITH AUTO DIFFERENTIAL Routine 09/13/2024 4:11 AM EDT MAGNESIUM Routine 09/13/2024 4:11 AM EDT COMPREHENSIVE METABOLIC PANEL Routine 09/13/2024 4:11 AM EDT DRUG SCREEN, URINE Routine 09/13/2024 12 :31 AM EDT SODIUM, URINE, RANDOM Routine 09/13/2024 12:31 AM EDT OSMOLALITY, URINE Routine 09/13/2024 12: 31 AM EDT URINE CREATININE,RANDOM Routine 09/14/19 12:31 AM EDT BLOOD GAS, VENOUS Routine 09/12/2024 10: 39 PM EDT MYOGLOBIN, SERUM Routine 09/12/2024 10:3 0 PM EDT CK TOTAL Routine 09/12/2024 10:30 PM EDT LACTATE W/ REFLEX STAT 09/12/2024 10: 30 PM EDT BASIC METABOLIC PANEL STAT 09/12/2024 10:30 PM EDT OSMOLALITY Routine 09/12/2024 10:30 PM EDT LACTATE STAT 09/12/2024 7:46 PM EDT BLOOD GAS, ARTERIAL STAT 09/12/2024 6 :40 PM EDT TROP I, HIGH SENSITIVITY 1 HOUR STAT 09/12/2024 5:08 PM EDT POCT NURSING URINE MACROSCOPIC UA Routine 09/12/2024 4:[address] CTA ABD AORTA W RUNOFF STAT 09/12/2024 4:40 PM EDT US ABDOMEN LMTD STAT 09/12/2024 4:36 PM EDT ER EXTRA URINE MARBLE STAT 09/12/2024 4:36 PM EDT ER EXTRA URINE CULTURE STAT 4:36 PM EDT ER EXTRA URINE STAT 09/12/2024 4:36 PM EDT URINE CULTURE STAT 09/12/2024 4:36 PM EDT PROCALCITONIN STAT Add-on 09/12/2024 3:54 PM EDT TROPONIN I, HIGH SENSITIVITY 0 HOUR STAT 09/12/2024 3:54 PM EDT TROPONIN I, HIGH SENSITIVITY 0 HOUR STAT 09/12/2024 3:54 PM EDT MAGNESIUM STAT 09/12/2024 3:54 PM EDT LACTATE W/ REFLEX STAT 09/12/2024 3:5 4 PM EDT COMPREHENSIVE METABOLIC PANEL STAT 09/12/2024 3:54 PM EDT CBC WITH AUTO DIFFERENTIAL STAT 09/12/2024 3:54 PM EDT BLOOD CULTURE STAT 09/12/2024 3:54 PM EDT BLOOD CULTURE STAT 09/12/2024 3:54 PM EDT EXTRA TUBES BLUE TOP Routine 09/12/2024 3:53 PM EDT EXTRA TUBES Routine 09/12/2024 3:[address] CTA ABD AND PELVIS STAT 09/12/2024 3:50 PM EDT ECG 12-LEAD STAT 09/12/2024 3:[address] CTA CHEST STAT 09/12/2024 3:[address] BRAIN WO CONT STAT 09/12/2024 3:44 PM EDT PM ED CRITICAL CARE Routine 09/12/2024 3 :33 PM EDT from Last 3 Months Results * (ABNORMAL) CBC auto differential (09/18/2024 4:51 AM EDT) Only the most recent of7 resultswithin the time period is included. WBC 7.7 4 - 11 x10E9/L 09/18/2024 5:25 AM EDT [facility] RBC Count 3.09(L) 3.8 - 5.2 X10E12/L 09/18/2024 5:25 AM EDT [facility] Hemoglobin 9.6(L) 11.7 - 15.5 g/dL 09/18/2024 5:25 AM EDT [facility] Hematocrit 28.2(L) 35 - 47 % 09/18/2024 5:25 AM [facility] MCV 91 80 - 100 fL 09/18/2024 5:25 AM [facility] MCH 31.3 27 - 34 pg 09/18/2024 5:25 AM [facility] MCHC 34.2 32 - 36 g/dL 09/18/2024 5:25 AM [facility] RDW 14.2 11.5 - 15 % 09/18/2024 5:25 AM [facility] Platelet Count 300 150 - 450 X10E9/L 09/18/2024 5:25 AM [facility] MPV 8.2 7 - 12 fL 09/18/2024 5:25 AM [facility] Neutrophils % 65.6 % 09/18/2024 5:25 AM [facility] Lymphocytes % 15.8 % 09/18/2024 5:25 AM [facility] Monocytes % 9.9 % 09/18/2024 5:25 AM [facility] Eosinophils % 8.0 % 09/18/2024 5:25 AM [facility] Basophils % 0.7 % 09/18/2024 5:25 AM [facility] Neutrophils Absolute (A) 5.0 1.5 - 6.6 10*3/uL 09/18/2024 5:25 AM [facility] Lymphocytes Absolute 1.2 1.0 - 3.5 10*3/uL 09/18/2024 5:25 AM [facility] Monocytes Absolute 0.8 0.0 - 0.9 10*3/uL 09/18/2024 5:25 AM [facility] Eosinophils Absolute 0.6(H) 0.0 - 0.4 10*3/uL 09/18/2024 5:25 AM [facility] Basophils Absolute 0.1 0.0 - 0.2 10*3/uL 09/18/2024 5:25 AM [facility] Differential Type AUTOMATED DIFFERENTIAL 09/18/2024 5:25 AM [facility] Blood Venous blood / Unknown Venipuncture / Unknown 09/18/2024 4:51 AM EDT 09/18/2024 5:02 AM EDT Abed Ramadan SENIOR EDUCATION SPECIALIST-AWNING ASSEMBLER LAB BLOOD ORDERABLES Final Result Performing Organization Address City/[facility]/ZIP Co de Phone Number [facility] [address] [place] [id number], [place] * Phosphorus (09/18/2024 4:51 AM EDT) Only the most recent of5 resultswithin the time period is included. PHOSPHORUS 3.5 2.4 - 4.9 mg/dL 09/18/2024 5:38 AM EDT [facility] Blood Venous blood / Unknown Venipuncture / Unknown 09/18/2024 4:51 AM EDT 09/18/2024 5:02 AM EDT Lele Aguila MD LAB BLOOD ORDERABLES Final Resul t Performing Organization Address [facility] Co de Phone Number [facility] [address] [place] [address], [place] * (ABNORMAL) Magnesium (09/18/2024 4:51 AM EDT) Only the most recent of8 resultswithin the time period is included. MAGNESIUM 1.6(L) 1.8 - 2.6 mg/dL 09/18/2024 5:38 AM EDT [facility] Blood Venous blood / Unknown Venipuncture / Unknown 09/18/2024 4:51 AM EDT 09/18/2024 5:02 AM EDT [facility] SENIOR EDUCATION SPECIALIST-AWNING ASSEMBLER LAB BLOOD ORDERABLES Final Result Performing Organization Address [facility] Co de Phone Number [facility] [address] [place] [address], [place] * (ABNORMAL) Comprehensive metabolic panel (09/18/2024 4:51 AM EDT) Only the most recent of7 resultswithin the time period is included. SODIUM 137 134 - 146 mmol/L 09/18/2024 5:38 AM EDT [facility] POTASSIUM 3.8 3.5 - 5.0 mmol/L 09/18/2024 5:38 AM [facility] CHLORIDE 107 98 - 109 mmol/L 09/18/2024 5:38 AM [facility] CARBON DIOXIDE 24 22 - 32 mmol/L 09/18/2024 5:38 AM [facility] ANION GAP 6 5 - 15 mmol/L 09/18/2024 5:38 AM [facility] BLOOD UREA NITROGEN 11 5 - 27 mg/dL 09/18/2024 5:38 AM [facility] CREATININE 0.44 0.40 - 1.00 mg/dL 09/18/2024 5:38 AM [facility] Comment:METHOD TRACEABLE TO IDMS STANDARD GLUCOSE 93 65 - 99 mg/dL 09/18/2024 5:38 AM [facility] CALCIUM 8.1(L) 8.5 - 10.5 mg/dL 09/18/2024 5:38 AM [facility] TOTAL PROTEIN 5.5(L) 6.0 - 8.0 g/dL 09/18/2024 5:38 AM [facility] ALBUMIN 2.9(L) 3.2 - 5.3 g/dL 09/18/2024 5:38 AM [facility] ALKALINE PHOSPHATASE 80 39 - 130 U/L 09/18/2024 5:38 AM [facility] AST 38 <=41 U/L 09/18/2024 5:38 AM [facility] ALT 33(H) <=31 U/L 09/18/2024 5:38 AM [facility] BILIRUBIN,TOTAL 0.4 0.3 - 1.2 mg/dL 09/18/2024 5:38 AM [facility] EGFR Non-Race Dependent >90 >=60 ml/min/1.7 3sq.m 09/18/2024 5:38 AM [facility] Comment: Reported eGFR is based on the CKD-EPI 2020 equation that does not use a race coefficient. Blood Venous blood / Unknown Venipuncture / Unknown 09/18/2024 4:51 AM EDT 09/18/2024 5:02 AM EDT Torito Herrfernanda SENIOR EDUCATION SPECIALIST-AWNING ASSEMBLER LAB BLOOD ORDERABLES Final Result [facility] [address] [place] [address], [place] * C difficile by PCR (09/16/2024 4:04 PM EDT) TOXIGENIC C DIFF Negative Negative 09/17/19 11:28 PM EDT [facility] 027 NAP1 Presumptive Negative Presumptive Negative 09/16/2024 11:28 PM EDT [facility] Comment:Assay methodology is nucleic acid amplification by real-time PCR for detection of C. difficile toxin gene sequences performed on [employer] System. Stool Feces / Unknown 09/16/2024 4 :04 PM EDT 09/16/2024 4:35 PM EDT Brandt CORTEZ BODY FLUIDS AND STOOLS ORD ERABLES Final Result [facility] [address] [place] [address], [place] [phone] * CT abdomen and pelvis with contrast [...] Paras Nixon MD on 09/16/2024 2:53 PM us Tamela Keane MD IMG CT ORDERABLES Final Result * Clinical Pathology Review (09/16/2024 10:57 AM EDT) Case Report Clinical Pathology Report Case: [id number] Authorizing Provider: Lele Aguila MD Collected: 09/16/2024 1057 Ordering Location: [facility] Received: 09/16/2024 1057 a Division of [place] [address] Med-Surg/Ortho Pathologist: Skylar Gonzalez MD Specimen: Blood, Venous 09/16/2024 10:47 PM EDT [facility] Final Diagnosis Prominent band in gamma region, recommend immunofixation for further evaluation. Hypoalbuminemia with mild increase in acute phase reactants. 09/16/2024 10:47 PM EDT [facility] at 2247 EDT Venous blood / Unknown 09/16/2024 10:57 AM EDT 09/16/2024 10:57 AM EDT us Lele Aguila MD PATHOLOGY/CYTOLOGY ORDERABLES Fi nal Result [facility] [address] [place] [address], [place] [phone] * Ionized calcium (09/16/2024 4:26 AM EDT) Only the most recent of7 resultswithin the time period is included. IONIZED CALCIUM - ICAN 4.5 4.5 - 5.3 mg/dL 09/16/2024 5:20 AM EDT [facility] Blood Venous blood / Unknown Venipuncture / Unknown 09/16/2024 4:26 AM EDT 09/16/2024 4:44 AM EDT us Briceñoily Ruby Campa SENIOR EDUCATION SPECIALIST-AWNING ASSEMBLER LAB BLOOD ORDERABLES Ann l Result Performing Organization Address [facility]/ZIP Co de Phone Number [facility] [address] [place], [place] [id number], [place] * Potassium (09/15/2024 5:34 PM EDT) Only the most recent of3 resultswithin the time period is included. POTASSIUM 3.8 3.5 - 5.0 mmol/L 09/15/2024 6:16 PM EDT [facility] Blood Venous blood / Unknown Venipuncture / Unknown 09/15/2024 5:34 PM EDT 09/15/2024 5:53 PM EDT us Kylie Link MD LAB BLOOD ORDERABLES Final Resul t Performing Organization Address [facility]/ZIP Co de Phone Number [facility] [address] [place], [place] [id number], [place] * PST TOP (09/15/2024 2:13 PM EDT) Only the most recent of2 resultswithin the time period is included. Extra Tube Auto Resulted 09/15/2024 4:01 PM EDT [facility] Blood Venous blood / Unknown Venipuncture / Unknown 09/15/2024 2:13 PM EDT 09/15/2024 2:19 PM EDT us Kylie Link MD LAB BLOOD ORDERABLES Final Resul t Performing Organization Address City/[facility]/ZIP Co de Phone Number [facility] [address] [place] [address], [place] * SST TOP (09/14/2024 1:00 PM EDT) Extra Tube Auto Resulted 09/14/2024 2:02 PM EDT [facility] Blood Venous blood / Unknown 09/14/2024 1:00 PM EDT 09/14/2024 1:03 PM EDT us Kylie Link MD LAB BLOOD ORDERABLES Final Resul t Performing Organization Address [facility] Co de Phone Number [facility] [address] [place] [address], [place] * X-ray abdomen ap 1 view [...] Adriano Jeffrey MD on 09/14/2024 11:53 AM us Felicia Pickens MD IMG DIAGNOSTIC IMAGING ORDERAB LES Final Result * Cytoplasmic Neutrophilic Ab (ANCA), S (09/14/2024 4:07 AM EDT) Pathologist [facility] C-ANCA Negative Negative 09/17/2024 2:56 PM EDT [facility] P-ANCA Negative Negative 09/17/2024 2:56 PM EDT [facility] Comment: Negative for cANCA and pANCA patterns by immunofluorescence. ADDITIONAL INFORMATION This test was developed and its performance characteristics determined by [facility] in a manner consistent with CLIA requirements. This test has not been cleared or approved by the U.S. Food and Drug Administration. Test Performed by: [facility] [place] [address] Nursing Unit Clerk: Ester Macdonald Ph.D.; CLIA# [id number] Blood Venous blood / Unknown Venipuncture / Unknown 09/14/2024 4:07 AM EDT 09/14/2024 4:15 AM EDT Lele Aguila MD LAB BLOOD ORDERABLES Final Resul t [facility] [address] [place] [address], * Glomerular basement membrane IgG AB (09/14/2024 4:07 AM EDT) Pathologist [facility] GBM IGG AB <0.2 <1.0 AI 09/16/2024 11:35 AM EDT [facility] Blood Venous blood / Unknown Venipuncture / Unknown 09/14/2024 4:07 AM EDT 09/14/2024 4:15 AM EDT Lele Aguila MD LAB BLOOD ORDERABLES Final Resul t [facility] [address] [place] [address], [place] [phone] * Proteinase 3 AB PR3 (09/14/2024 4:07 AM EDT) Pathologist [facility] PROTEINASE 3 IGG AB <0.2 <1.0 AI 09/16/2024 10:21 AM EDT [facility] Blood Venous blood / Unknown Venipuncture / Unknown 09/14/2024 4:07 AM EDT 09/14/2024 4:15 AM EDT us Lele Aguila MD LAB BLOOD ORDERABLES Final Resul t [facility] [address] [place] [address], * Myeloperoxidase AB (09/14/2024 4:07 AM EDT) Pathologist [facility] MYELOPEROXIDASE AB <0.2 <1.0 AI 2024 10:21 AM EDT [facility] Blood Venous blood / Unknown Venipuncture / Unknown 09/14/2024 4:07 AM EDT 09/14/2024 4:15 AM EDT us Lele Aguila MD LAB BLOOD ORDERABLES Final Resul t [facility] [address] [place] [address], [place] [phone] * Complement profile (C3 AND C4) (09/14/2024 4:07 AM EDT) Pathologist [facility] COMPLEMENT C3 102 86 - 184 mg/dL 09/14/2024 8:38 AM EDT [facility] COMPLEMENT C4 20 16 - 47 mg/dL 09/14/2024 8:38 AM EDT [facility] Blood Venous blood / Unknown Venipuncture / Unknown 09/14/2024 4:07 AM EDT 09/14/2024 4:15 AM EDT us Lele Aguila MD LAB BLOOD ORDERABLES Final Resul t Performing Organization Address City/[facility]/ZIP Co de Phone Number [facility] [address] [place] [address], * Anti-Cruz AB IGG (09/14/2024 4:07 AM EDT) ANTI-RCUZ AB IGG <0.2 <1.0 AI 09/16/2024 10:21 AM EDT [facility] Blood Venous blood / Unknown Venipuncture / Unknown 09/14/2024 4:07 AM EDT 09/14/2024 4:15 AM EDT us Lele Aguila MD LAB BLOOD ORDERABLES Final Resul t Performing Organization Address [facility] Co de Phone Number [facility] [address] [place] [address], * Hepatitis C(HCV) Ab w/ Reflex to PCR (09/14/2024 4:07 AM EDT) ANTI HCV W/PCR REFLX Non-Reacti ve Non-Reacti ve 09/14/2024 12:47 PM EDT [facility] Comment: If recent infection suspected, recommend repeat testing (>2 months). Yzlkih-gr-khndyp ratio is <1.0. Blood Venous blood / Unknown Venipuncture / Unknown 09/14/2024 4:07 AM EDT 09/14/2024 4:15 AM EDT us Lele Aguila MD LAB BLOOD ORDERABLES Final Resul t Performing Organization Address City/[facility]/ZIP Co de Phone Number [facility] [address] [place] [address], * Hepatitis B Surface Antibody Quantitation (09/14/2024 4:07 AM EDT) ANTI HBS QUANT. <3.0 mIU/mL 09/14/2024 12:51 PM EDT [facility] Blood Venous blood / Unknown Venipuncture / Unknown 09/14/2024 4:07 AM EDT 09/14/2024 4:15 AM EDT Narrative [facility] - 09/14/2024 12:51 PM EDT Vaccinated: >=10 mIU/mL, Positive (Immune) Unvaccinated: <10 mIU/mL, Negative (Not Immune) us Lele Aguila MD LAB BLOOD ORDERABLES Final Resul t [facility] [address] [place] [address], [place] [phone] * Hepatitis B surface antigen (09/14/2024 4:07 AM EDT) Pathologist [facility] HEPATITIS B SURF AG Non-Reacti ve Non-Reacti ve 09/14/2024 12:41 PM EDT [facility] Blood Venous blood / Unknown Venipuncture / Unknown 09/14/2024 4:07 AM EDT 09/14/2024 4:15 AM EDT us Lele Aguila MD LAB BLOOD ORDERABLES Final Resul t Performing Organization Address City/[facility]/ZIP Co de Phone Number [facility] [address] [place] [address], [place] [phone] * Rheumatoid factor (09/14/2024 4:07 AM EDT) Pathologist [facility] RHEUMATOID FACTOR 14 <20 IU/mL 09/14/2024 8:19 AM EDT [facility] Blood Venous blood / Unknown Venipuncture / Unknown 09/14/2024 4:07 AM EDT 09/14/2024 4:15 AM EDT us Lele Aguila MD LAB BLOOD ORDERABLES Final Resul t [facility] [address] [place] [address], [place] [phone] * KANG Screen w/ Reflex (09/14/2024 4:07 AM EDT) KANG SCREEN W/REFLEX Negative Negative 09/16/2024 11:34 AM EDT [facility] Blood Venous blood / Unknown Venipuncture / Unknown 09/14/2024 4:07 AM EDT 09/14/2024 4:15 AM EDT Narrative [facility] - 09/16/2024 11:34 AM EDT Testing performed using multiplex flow immunoassay. Eleven difference antigens associated with systemic autoimmunie diseases (dsDNA, Sm, Sm/PACKAGE SORTER, PACKAGE SORTER, Chromatin, SSA, SSB, Niurka-1, Sc170, Ribo P, Centromere B) are included in this sreening tests. us Lele Aguila MD LAB BLOOD ORDERABLES Final Resul t [facility] [address] [place] [address], [place] [phone] * (ABNORMAL) Protein electrophoresis, serum (09/14/2024 4:07 AM EDT) Pathologist [facility] TOTAL PROTEIN 5.1(L) 6.0 - 8.0 g/dL 09/17/2024 5:32 AM EDT [facility] ALPHA 1 GLOBULIN 0.5(H) 0.1 - 0.4 g/dL 09/17/2024 5:32 AM EDT [facility] ALPHA 2 GLOBULIN 0.9 0.4 - 1.1 g/dL 09/17/2024 5:32 AM EDT [facility] BETA GLOBULIN 0.6 0.5 - 1.2 g/dL 09/17/2024 5:32 AM EDT [facility] GAMMA GLOBULIN 0.6 0.5 - 1.6 g/dL 09/17/2024 5:32 AM EDT [facility] Protein Electrophoresis Interp See Pathology Report 09/17/2024 5:32 AM EDT [facility] Albumin 2.5(L) 3.4 - 5.3 g/dL 09/17/2024 5:32 AM EDT [facility] Blood Venous blood / Unknown Venipuncture / Unknown 09/14/2024 4:07 AM EDT 09/14/2024 4:15 AM EDT Lele Aguila MD LAB BLOOD ORDERABLES Final Resul t [facility] [address] [place] [address], * (ABNORMAL) Sodium (09/13/2024 3:52 PM EDT) Only the most recent of3 resultswithin the time period is included. SODIUM 133(L) 134 - 146 mmol/L 09/13/2024 4:26 PM EDT [facility] Blood Venous blood / Unknown Venipuncture / Unknown 09/13/2024 3:52 PM EDT 09/13/2024 3:56 PM EDT Torito Zuniga APRN-SHADI LAB BLOOD ORDERABLES Final Result [facility] [address] [place] [address], * (ABNORMAL) Microalbumin - Albumin: Creatinine Urine Ratio (09/13/2024 3:04 PM EDT) URINE CREATININE,RDM 65.47 mg/dL 09/13/2024 6:17 PM EDT [facility] MALB/CREAT RATIO 35.1(H) 0.0 - 30.0 mg/g 09/13/2024 6:17 PM EDT [facility] MICROALBUMIN, URINE 2.3(H) 0.0 - 1.9 mg/dL 09/13/2024 6:17 PM EDT [facility] Urine 09/13/2024 3:04 PM EDT 09/13/2024 3:13 PM EDT Lele Aguila MD URINE ORDERABLES Final Result [facility] [address] [place] [address], [place] [phone] * Vas art doppler lwr bilat mult [...] hours at the phone number besidetheir name. us Laquita Yo MD CV VASCULAR ORDERABLES Final [...] Rory Harris MD on 09/13/2024 12:24 PM Kylie Link MD IM FLUOROSCOPY ORDERABLES Final Result * (ABNORMAL) Procalcitonin (09/13/2024 4:11 AM EDT) Only the most recent of2 resultswithin the time period is included. PROCALCITONIN 3.40(H) <0.05 ng/mL 09/13/2024 5:16 AM EDT [facility] Blood Venous blood / Unknown Venipuncture / Unknown 09/13/2024 4:11 AM EDT 09/13/2024 4:32 AM EDT [facility] - 09/13/2024 5:16 AM EDT <0.50 ng/mL - Low risk of severe sepsis and/or septic shock. <2.00 ng/mL - Recommend retesting within 6-24 hours. >2.00 ng/mL - High risk of sepsis and/or septic shock. Orquidea Edward PA-C LAB BLOOD ORDERABLES Final R esult Performing Organization Address City/[facility]/ZIP Co de Phone Number [facility] [address] [place] [address], [place] * Urine Creatinine,random (09/13/2024 12:31 AM EDT) URINE CREATININE,RDM 51.96 mg/dL 09/13/2024 1:11 AM [facility] Urine Urine / Unknown 09/13/2024 1 2:31 AM EDT 09/13/2024 12:39 AM EDT Torito Zuniga APRN-AWNING ASSEMBLER URINE ORDERABLES Final Res ult Performing Organization Address [facility]/ZIP Co de Phone Number [facility] [address] [place] [address], [place] * Drug Screen, Urine (09/13/2024 12:31 AM EDT) AMPHETAMINE/METHAMP Negative Negative 09/13 1:11 AM [facility] Comment:AMPH/METH screening cut off = 1000 ng/mL COCAINE METABOLITE Negative Negative 2024 1:11 AM [facility] Comment:Cocaine screening cu t off value = 300 ng/mL ECSTASY Negative Negative 09/13/2024 1:11 AM [facility] Comment:Ecstasy screening cu t off value = 500 ng/mL METHADONE Negative Negative 09/13/2024 1:11 AM [facility] Comment:Methadone screening cut off value = 300 ng/mL. OPIATES Negative Negative 09/13/2024 1:11 AM [facility] Comment: Opiates screening cut off value = 300 ng/mL This test is used for the detection of codeine, hydrocodone (>1000 ng/mL), morphine and hydromorphone (>900 ng/mL) in urine. OXYCODONE Negative Negative 09/13/2024 1:11 AM [facility] Comment: Oxycodone screening cut off value = 300 ng/mL This test is used for the detection of oxycodone and oxymorphone in urine. PHENCYCLIDINE Negative Negative 09/13/2024 1:11 AM [facility] Comment:Phencyclidine screen ing cut off value = 25 ng/mL CANNABINOIDS Negative Negative 09/13/2024 1:11 AM [facility] Comment:Cannabinoids/THC scr eening cut off value = 50 ng/mL Urine Barbiturates Negative Negative 2024 1:11 AM [facility] Comment:Barbiturates screeni ng cut off value = 200 ng/mL BENZODIAZEPINES Negative Negative 1:11 AM [facility] Comment:Benzodiazepines scre ening cut off value = 200 ng/mL Urine 09/13/2024 12:3 1 AM EDT 09/13/2024 12:39 AM EDT us Orquidea Edward PA-C URINE ORDERABLES Final Resul t Performing Organization Address [facility] Co de Phone Number [facility] [address] [place] [address], [place] * Sodium, urine, random (09/13/2024 12:31 AM EDT) URINE SODIUM,RANDOM 22 mmol/L 09/13/2024 1:11 AM [facility] Urine 09/13/2024 12:3 1 AM EDT 09/13/2024 12:39 AM EDT us Torito CEJA URINE ORDERABLES Final Res ult Performing Organization Address [facility] Co de Phone Number [facility] [address] [place] [address], [place] * Osmolality, urine (09/13/2024 12:31 AM EDT) URINE OSMOLALITY 389 300 - 1,300 mOsm/kg H2 09/13/2024 11:12 AM EDT [facility] Urine 09/13/2024 12:3 1 AM EDT 09/13/2024 12:39 AM EDT us Abed Ramadan SENIOR EDUCATION SPECIALIST-AWNING ASSEMBLER URINE ORDERABLES Final Res ult [facility] [address] [place] [address], [place] [phone] * (ABNORMAL) Blood gas, venous (09/12/2024 10:39 PM EDT) Sample type VENOUS 09/12/2024 10:42 PM [facility] pH, Venous 7.163(L) 7.320 - 7.420 09/12/2024 10:42 PM [facility] pCO2, Venous 20.1(L) 35.0 - 50.0 mmHg 09/12/2024 10:42 PM [facility] pO2, Venous 62(H) 30 - 50 mmHg 09/12/2024 10:42 PM [facility] Base, Deficit -19.0(L) 0.0 - 2.0 mmol/L 09/12/2024 10:42 PM [facility] HCO3, Venous 7.2(L) 20.0 - 24.0 mmol/L 09/12/2024 10:42 PM [facility] %O2 Saturation, Venous 85.0 % 09/12/2024 10:42 PM [facility] Gilberto's test N/A 09/12/2024 10:42 PM [facility] SPO2 100 % 09/12/2024 10:42 PM [facility] Sample site N/A 09/12/2024 10:42 PM [facility] Insp. O2 conc. 21 % 09/12/2024 10:42 PM [facility] Source Of Oxygen Room Air 09/12/2024 10:42 PM [facility] venous Venous blood / Unknown 09/12/2024 10:39 PM EDT 09/12/2024 10:42 PM EDT Kylie Link MD LAB BLOOD ORDERABLES Final Resul t [facility] [address] [place] [address], [place] * Lactate w/ Reflex (09/12/2024 10:30 PM EDT) Only the most recent of2 resultswithin the time period is included. LACTATE W/REFLEX 1.4 0.4 - 2.0 mmol/L 09/12/2024 10:52 PM EDT [facility] Blood Venous blood / Unknown Venipuncture / Unknown 09/12/2024 10:30 PM EDT 09/12/2024 10:34 PM EDT Narrative [facility] - 09/12/2024 10:52 PM EDT Result did not trigger repeat Lactate, re-order if needed. us Orquidea Edward PA-C LAB BLOOD ORDERABLES Final R esult Performing Organization Address [facility]/ZIP Co de Phone Number [facility] [address] [place] [address], [place] * (ABNORMAL) Osmolality (09/12/2024 10:30 PM EDT) OSMOLALITY 319(H) 280 - 300 mOsm/kg H2 09/13/2024 8:27 AM EDT [facility] Blood Venous blood / Unknown Venipuncture / Unknown 09/12/2024 10:30 PM EDT 09/12/2024 10:34 PM EDT Torito CEJA LAB BLOOD ORDERABLES Final Result [facility] [address] [place] [address], [place] [phone] * (ABNORMAL) Myoglobin, serum (09/12/2024 10:30 PM EDT) [facility] SERUM MYOGLOBIN 68.8(H) 14.3 - 65.8 ng/mL 09/12/2024 11:11 PM EDT [facility] Blood Venous blood / Unknown Venipuncture / Unknown 09/12/2024 10:30 PM EDT 09/12/2024 10:34 PM EDT us Orquidea Edward PA-C LAB BLOOD ORDERABLES Final R esult Performing Organization Address [facility]/ZIP Co de Phone Number [facility] [address] [place] [address], [place] * CK Total (09/12/2024 10:30 PM EDT) [facility] CPK 34 24 - 170 U/L 09/12/2024 10:58 PM EDT [facility] Blood Venous blood / Unknown Venipuncture / Unknown 09/12/2024 10:30 PM EDT 09/12/2024 10:34 PM EDT us Orquidea Edward PA-C LAB BLOOD ORDERABLES Final R esult Performing Organization Address [facility] Co de Phone Number [facility] [address] [place] [address], [place] * (ABNORMAL) Basic Metabolic Panel (09/12/2024 10:30 PM EDT) [facility] SODIUM 127(L) 134 - 146 mmol/L 09/12/2024 10:58 PM EDT [facility] POTASSIUM 4.9 3.5 - 5.0 mmol/L 09/12/2024 10:58 PM [facility] CHLORIDE 102 98 - 109 mmol/L 09/12/2024 10:58 PM [facility] CARBON DIOXIDE 10(L) 22 - 32 mmol/L 09/12/2024 10:58 PM T [facility] ANION GAP 15 5 - 15 mmol/L 09/12/2024 10:58 PM EDT [facility] BLOOD UREA NITROGEN 107(H) 5 - 27 mg/dL 09/12/2024 10:58 PM EDT [facility] CREATININE 2.69(H) 0.40 - 1.00 mg/dL 09/12/2024 10:58 PM EDT [facility] Comment:METHOD TRACEABLE TO [facility] STANDARD GLUCOSE 127(H) 65 - 99 mg/dL 09/12/2024 10:58 PM T [facility] CALCIUM 7.5(L) 8.5 - 10.5 mg/dL 09/12/2024 10:58 PM T [facility] EGFR Non-Race Dependent 20(L) >=60 ml/min/1.7 3sq.m 09/12/2024 10:58 PM EDT [facility] Comment: Reported eGFR is based on the CKD-EPI 2020 equation that does not use a race coefficient. Blood Venous blood / Unknown Venipuncture / Unknown 09/12/2024 10:30 PM EDT 09/12/2024 10:34 PM EDT us Orquidea Edward PA-C LAB BLOOD ORDERABLES Final R esult [facility] [address] [place] [address], [place] * Lactate (09/12/2024 7:46 PM EDT) Pathologist [facility] LACTATE 1.0 0.4 - 2.0 mmol/L 09/12/2024 8:29 PM EDT [facility] Blood Venous blood / Unknown Venipuncture / Unknown 09/12/2024 7:46 PM EDT 09/12/2024 7:48 PM EDT us Cinthya CEJA LAB BLOOD ORDERABLES Final Result [facility] [address] [place] [address], [place] * (ABNORMAL) Blood Gas, Arterial (09/12/2024 6:40 PM EDT) Pathologist [facility] Sample type ARTERIAL 09/12/2024 6:43 PM EDT [facility] pH, Arterial 7.089(LL) 7.350 - 7.450 09/12/2024 6:43 PM EDT [facility] pCO2, Arterial 20.2(LL) 35.0 - 45.0 mmHg 09/12/2024 6:43 PM EDT [facility] PO2, Arterial 121(H) 80 - 100 mmHg 09/12/2024 6:43 PM EDT [facility] Base, Deficit -22.0(L) 0.0 - 2.0 mmol/L 09/12/2024 6:43 PM EDT [facility] HCO3, Arterial 6.1(L) 22.0 - 26.0 mmol/L 09/12/2024 6:43 PM EDT [facility] %O2 Saturation, Arterial 97.0 >90.0 % 09/12/2024 6:43 PM EDT [facility] Gilberto's test N/A 09/12/2024 6:43 PM EDT [facility] SPO2 121 % 09/12/2024 6:43 PM EDT [facility] Sample site R Rad 09/12/2024 6:43 PM EDT [facility] Insp. O2 conc. 21 % 09/12/2024 6:43 PM EDT [facility] Source Of Oxygen Room Air 09/12/2024 6:43 PM EDT [facility] arterial (Blood, Arterial) 09/12/2024 6:40 PM EDT 09/12/2024 6:43 PM EDT us Aiden Loredo DO LAB BLOOD ORDERABLES Final R esult [facility] [address] [place] [address], [place] * Troponin I, High Sensitivity 1 Hour (09/12/2024 5:08 PM EDT) TROPONIN I, HIGH SENSITIVITY 13 <16 ng/L 09/12/2024 5:47 PM EDT [facility] Blood Venous blood / Unknown Venipuncture / Unknown 09/12/2024 5:08 PM EDT 09/12/2024 5:17 PM EDT us Cinthya Simeon SENIOR EDUCATION SPECIALIST-AWNING ASSEMBLER LAB BLOOD ORDERABLES Final Result [facility] [address] [place] [address], [place] * (ABNORMAL) POCT Nursing Urine Macroscopic UA (09/12/2024 4:55 PM EDT) POC Urine Specific [place] 1.020 1.010, 1.015, 1.020, 1.025 09/12/2024 4:46 PM EDT [facility] Urine Leukocyte Esterase Negative Negative 09/12/2024 4:46 PM EDT [facility] Urine Nitrite Negative Negative 09/12/2024 4:46 PM EDT [facility] Urine pH 5.5 5.0, 6.0, 6.5, 7.0, 7.5, 8.0, 8.5, 5.5 09/12/2024 4:46 PM EDT [facility] Urine Protein 100 mg/dL(A) Negative 09/12/2024 4:46 PM EDT [facility] Urine Glucose 100 mg/dL(A) Negative 09/12/2024 4:46 PM EDT [facility] Urine Ketones Negative Negative 09/12/2024 4:46 PM EDT [facility] Urine Urobilinogen 0.2 E.U./dL 09/12/2024 4:46 PM EDT [facility] Urine Bilirubin Negative Negative 09/12/2024 4:46 PM EDT [facility] Urine Blood/HGB Moderate(A) Negative 09/12/2024 4:46 PM EDT [facility] Urine 09/12/2024 4:55 PM EDT 09/12/2024 4:46 PM EDT us Aiden Loredo DO POINT OF CARE TEST ORDERABLE S Final Result [facility] [address] [place] [address], [place] * CT angiogram abdominal aorta with runoff (09/12/2024 4:40 PM EDT) Anatomical Region Laterality Modality Body, Abdomen, Body Covera N/A Compu dwayne Tomography 09/12/2024 4:44 PM EDT Narrative 09/12/2024 4:52 PM EDT EXAM: CT CTA ABD AORTA W RUNOFF [...] pneumatosis or free air. There is no free fluid. IMPRESSION: 1. Please note, the upper abdomen and proximal abdominal aorta are not included on this examination. 2. Atherosclerotic disease throughout a normal diameter abdominal aorta without evidence for acute dissection, aneurysm, or stenosis. 3. The posterior tibial and peroneal arteries terminate in the mid calf. There is single vessel anterior tibial artery inflow into the bilateral ankles and feet. 3. Focal moderate stenosis [...] Paras Nixon MD on 09/12/2024 4:52 PM Procedure Note Paras Nixon MD - 09/12/2024 EXAM: CT CTA ABD AORTA W RUNOFF CLINICAL INFORMATION: No pulses in either foot per ED. TECHNIQUE: Following the uneventful intravenous administration of 100 mLOmnipaque 350, a CT angiogram of the bilateral lower extremity runoff wasobtained. Coronal, sagittal, and volume rendered 3-D MIP reformattedimages were obtained from the axial CT data. Automated exposure controlwas utilized. COMPARISON: CTA performed earlier on 09/12/2024 FINDINGS: The upper abdomen is excluded. There are soft and calcified plaquethroughout a normal diameter abdominal aorta and iliac arteries withoutevidence for dissection or aneurysm. The origins of the celiac andsuperior mesenteric arteries are not included. The origins of the renalarteries are normal and widely patent. There is no evidence for stenosis. There are mild calcifications in the right common femoral artery withoutevidence for stenosis. The right superficial femoral artery is wellopacified. There is focal moderate stenosis of the popliteal artery. Thetibial peroneal trunk is unremarkable. The peroneal and posterior tibialarteries terminate in the mid calf. The anterior tibial artery extends into theankle and foot. The left common femoral artery is unremarkable. The left superficialfemoral artery is well opacified. There are mild calcifications of thepopliteal artery without significant stenosis. There is a focalcalcification of the mid anterior tibial artery with focal severestenosis. The peroneal and posterior tibial arteries terminate in the mid calf. The anterior tibialartery extends into the ankle and foot. There are bilateral superficialcysts of the dorsal knees, suspected popliteal cyst. The partially visualized liver is unremarkable. A distended gallbladder ispresent. The partially visualized kidneys are unremarkable. The pancreasis mostly not included. The spleen is not included. The adrenals are notincluded. There are no dilated loops of bowel or evidence of pneumatosisor free air. There is no free fluid. IMPRESSION: 1. Please note, the upper abdomen and proximal abdominal aorta are notincluded on this examination. 2. Atherosclerotic disease throughout a normal diameter abdominal aortawithout evidence for acute dissection, aneurysm, or stenosis. 3. The posterior tibial and peroneal arteries terminate in the mid calf.There is single vessel anterior tibial artery inflow into the bilateralankles and feet. 3. Focal moderate stenosis of the right popliteal artery. 4. Focal severe stenosis of the mid left anterior tibial artery. 5. Bilateral popliteal Matias's cyst. 6. Please see separate dictation of the dedicated CTA of the abdomen andpelvis. All CT scans at this facility use dose modulation, iterativereconstruction, and/or weight based dosing when appropriate to reduceradiation dose to as low as reasonably achievable. Finalized by Paras Nixon MD on 09/12/2024 4:52 PM us Aiden Loredo DO IMG CT ORDERABLES Final Resu lt * Ultrasound abdomen limited (09/12/2024 4:36 PM EDT) Anatomical Region Laterality Modality Body, Abdomen Ultrasound 09/12/2024 4:4 0 PM EDT Narrative 09/12/2024 4:42 PM EDT GALLBLADDER ULTRASOUND COMPARISON: CT abdomen pelvis 09/12/2024 [...] Leobardo Pascal MD on 09/12/2024 4:42 PM Procedure Note Leobardo Pascal MD - 09/12/2024 GALLBLADDER ULTRASOUND COMPARISON: CT abdomen pelvis 09/12/2024 HISTORY: Distended gallbladder, abnormal CT. Technique: Gallbladder ultrasound performed. Evaluation is compromised aspatient was unable to roll for left lateral decubitus positioning due tocondition. IMPRESSION: 1. Distended gallbladder. Small amount of gallbladder sludge. Nogallbladder wall thickening or pericholecystic fluid. Technologist reportsa negative sonographic Mcleod's sign. 2. Biliary ductal dilatation. Common duct measures 8 mm in diameter.Correlate clinically for laboratory values for biliary obstruction.Consider MRCP. Finalized by Leobardo Pascal MD on 09/12/2024 4:42 PM us Cinthya Simeon SENIOR EDUCATION SPECIALIST-AWNING ASSEMBLER IMG US ORDERABLES Final Re sult * Extra Urine [place] (09/12/2024 4:36 PM EDT) Extra Tube Auto Resulted 09/12/2024 6:01 PM EDT [facility] Urine Urine specimen collection, clean catch / Unknown 09/12/2024 4:36 PM EDT 09/12/2024 5:18 PM EDT us Cinthya Simeon SENIOR EDUCATION SPECIALIST-AWNING ASSEMBLER URINE ORDERABLES Final Res ult [facility] [address] [place] [address], [place] * Extra Urine Culture (09/12/2024 4:36 PM EDT) Extra Tube Auto Resulted 09/12/2024 6:01 PM EDT [facility] Urine Urine specimen collection, clean catch / Unknown 09/12/2024 4:36 PM EDT 09/12/2024 5:18 PM EDT us Cinthya Simeon SENIOR EDUCATION SPECIALIST-AWNING ASSEMBLER URINE ORDERABLES Final Res ult Performing Organization Address City/[facility]/ZIP Co de Phone Number [address] [place] [address], [place] * Extra Urine (09/12/2024 4:36 PM EDT) Extra Tube Auto Resulted 09/12/2024 6:01 PM EDT [facility] Urine Urine specimen collection, clean catch / Unknown 09/12/2024 4:36 PM EDT 09/12/2024 5:18 PM EDT us Cinthya Simeon SENIOR EDUCATION SPECIALIST-AWNING ASSEMBLER URINE ORDERABLES Final Res ult Performing Organization Address [facility] Co de Phone Number [address] [place] [address], [place] * (ABNORMAL) Urine Culture Urine, Clean Catch Midstream (09/12/2024 4:36 PM EDT) CULTURE RESULTS 10,000-50,000 CFU/mL Streptococci, beta hemolytic not group a or b(A) 09/14/2024 12:32 PM EDT [facility] Urine Urine specimen collection, clean catch / Unknown 09/12/2024 4:36 PM EDT 09/12/2024 9:58 PM EDT us Cinthya Simeon SENIOR EDUCATION SPECIALIST-AWNING ASSEMBLER MICROBIOLOGY - GENERAL ORD ERABLES Final Result Performing Organization Address City/[facility]/ZIP Co de Phone Number [facility] [address] [place] [address], [place] [phone] * Troponin I, High Sensitivity 0 Hour (09/12/2024 3:54 PM EDT) TROPONIN I, HIGH SENSITIVITY 12 <16 ng/L 09/12/2024 4:25 PM EDT [facility] Blood Venous blood / Unknown Venipuncture / Unknown 09/12/2024 3:54 PM EDT 09/12/2024 3:56 PM EDT Cinthya Simeon APRN-AWNING ASSEMBLER LAB BLOOD ORDERABLES Final Result Performing Organization Address City/[facility]/ZIP Co de Phone Number [facility] [address] [place] [address], [place] * Blood culture (09/12/2024 3:54 PM EDT) Only the most recent of2 resultswithin the time period is included. CULTURE RESULTS NO GROWTH 5 DAYS 09/17/2024 11:01 PM EDT [facility] Blood Venous blood / Unknown Venipuncture / Unknown 09/12/2024 3:54 PM EDT 09/12/2024 3:56 PM EDT Narrative [facility] - 09/17/2024 11:01 PM EDT Suboptimal volume of blood collected, Results may be affected. Cinthya PARRAAWNING ASSEMBLER MICROBIOLOGY - GENERAL ORD ERABLES Final Result Performing Organization Address City/[facility] Co de Phone Number [facility] [address] [place] [address], [place] [phone] * Light Blue Top (09/12/2024 3:53 PM EDT) Extra Tube Auto Resulted 09/12/2024 5:01 PM EDT [facility] Blood Venous blood / Unknown 09/12/2024 3:53 PM EDT 09/12/2024 3:57 PM EDT us Aiden Loredo DO LAB BLOOD ORDERABLES Final R esult Performing Organization Address City/[facility]/ZIP Co de Phone Number [facility] [address] [place] [address] [place] [address], [place] * CT angiogram abdomen and pelvis (09/12/2024 3:50 PM EDT) Anatomical Region Laterality Modality Body, Abdomen, Body Covera N/A Compu dwayne Tomography 09/12/2024 3:51 PM EDT Narrative 09/12/2024 3:[address] CTA ABD AND PELVIS CLINICAL INFORMATION: dissection COMPARISON: 02/28/2022. PROCEDURE: Routine CT Angiography of the abdomen and pelvis obtained after the uncomplicated intravenous administration of contrast. Sagittal and coronal reformatted images with 3-D Maximum intensity projection reconstructions constructed under concurrent physician supervision on a independent workstation for evaluation of vascular abnormalities. All CT scans at this facility use dose modulation, iterative reconstruction, and/or weight based dosing when appropriate to reduce radiation dose to as low as reasonably achievable. FINDINGS: Lung bases demonstrate no acute findings. The liver is unremarkable. Fluid- filled stomach. Large hydropic gallbladder without marked wall thickening. Prominent common bile duct measuring 8 mm. Arterial enhancement pattern in the spleen. Pancreas is normal. Adrenal glands are unchanged, small benign nodule on the left measuring about 8 mm. Minimal scarring in the kidneys with low-attenuation areas that are too small to characterize. [...] Mao Kauffman MD on 09/12/2024 3:57 PM Procedure Note Mao Kauffman MD - 09/12/2024 CT CTA ABD AND PELVIS CLINICAL INFORMATION: dissection COMPARISON: 02/28/2022. PROCEDURE: Routine CT Angiography of the abdomen and pelvis obtained after theuncomplicated intravenous administration of contrast. Sagittal and coronalreformatted images with 3-D Maximum intensity projection reconstructionsconstructed under concurrent physician supervision on a independentworkstation for evaluation of vascular abnormalities. All CT scans at this facility use dose modulation, iterativereconstruction, and/or weight based dosing when appropriate to reduceradiation dose to as low as reasonably achievable. FINDINGS: Lung bases demonstrate no acute findings. The liver is unremarkable.Fluid-filled stomach. Large hydropic gallbladder without marked wallthickening. Prominent common bile duct measuring 8 mm. Arterialenhancement pattern in the spleen. Pancreas is normal. Adrenal glands areunchanged, small benign nodule on the left measuring about 8 mm. Minimal scarring in the kidneyswith low-attenuation areas that are too small to characterize. Some patchycortical areas of low attenuation present. The bladder is normal.Constipation. No bowel obstruction. No dissection. Atheroscleroticcalcifications in the aorta. Calcified and noncalcified atherosclerotic disease. No enlargedlymph nodes. Retroaortic left renal vein. Degenerative changes arepresent. 3-D reformatted images confirm the source data findings. IMPRESSION: * No evidence of aortic aneurysm or dissection. Severe atheroscleroticchanges. * Patchy enhancement in the kidneys, urinalysis is recommended to assessfor pyelonephritis. * Hydropic gallbladder and prominent extrahepatic biliary tree, correlatewith right upper quadrant ultrasound biliary laboratory data. Surgicalconsultation could be obtained as indicated. * Please see above for further details. Finalized by Mao Kauffman MD on 09/12/2024 3:57 PM [facility] IMG CT ORDERABLES Final Re sult * ECG 12 lead (09/12/2024 3:49 PM EDT) 09/12/2024 3:49 PM EDT Cinthya [facility]JA ECG ORDERABLES Final Resu lt TRACEMASTERVUE * CT angiogram chest (09/12/2024 3:46 PM EDT) Anatomical Region Laterality Modality Lung, Body, Chest, Vascular, Body Covera N/A Computed Tomography 09/12/2024 3:49 PM EDT Narrative 09/12/2024 4:[address] CTA CHEST HISTORY: dissection, transient alteration [...] Mahnaz Eric DO on 09/12/2024 3:49 PM Markos Castillo MD have personally reviewed the image(s) and agree with and/or edited the report Finalized by Markos Bañuelos MD on 09/12/2024 4:03 PM Procedure Note Markos Bañuelos MD - 09/12/2024 CT CTA CHEST HISTORY: dissection, transient alteration of awareness COMPARISON: None TECHNIQUE: Contiguous axial images are obtained of the Chest with 100 mLof Omnipaque 350 IV contrast. Coronal and sagittal reconstructions wereperformed and reviewed. Sagittal and coronal reformatted images with 3-DMaximum intensity projection reconstructions constructed under concurrent physician supervision on a separate workstation. Automatic exposurecontrol was utilized. All CT scans at this facility use dose modulation,iterative reconstruction, and/or weight based dosing when appropriate toreduce radiation dose to as low as reasonably achievable. FINDINGS: LOWER NECK: Within normal limits. MEDIASTINUM: The visualized thyroid is unremarkable. No mediastinallymphadenopathy. No hilar lymphadenopathy. AXILLA: No axillary lymphadenopathy. HEART: Heart size is within normal limits. No significant pericardialeffusion. Moderate coronary artery calcification/stenting. Nonaneurysmalthoracic aorta with mild atherosclerotic calcification. PULMONARY ARTERIES: Main pulmonary artery size is within normal limits.No filling defects of the main pulmonary arteries or segmental branches tosuggest emboli. ABDOMEN: Same day CTA abdomen and pelvis dictated separately. SOFT TISSUES: The soft tissues are unremarkable. BONES: No acute abnormality. LUNGS: The trachea and proximal airways are unremarkable. The lungs areunremarkable. PLEURA: No pleural effusions or pneumothorax. IMPRESSION: * No acute thoracic abnormality. Approved by Resident Mahnaz Eric DO on 09/12/2024 3:49 PM IMarkos MD have personally reviewed the image(s) and agree withand/or edited the report Finalized by Markos Bañuelos MD on 09/12/2024 4:03 PM us Cinthya Simeon S[employer]IOR EDUCATION [employer]IST-[employer] IMG CT ORDERABLES Final Re sult * CT brain without contrast (09/12/2024 3:44 PM EDT) Anatomical Region Laterality Modality Neuro, Head, Head and Neck, Neuro Covera N/A Computed Tomography 09/12/2024 3:46 PM EDT Narrative 09/12/2024 3:[address] BRAIN WO CONT CLINICAL INFORMATION: ams COMPARISON: None. PROCEDURE: Routine CT Head obtained without contrast. All CT scans at this facility use dose modulation, iterative reconstruction, and/or weight based dosing when appropriate to reduce radiation dose to as low as reasonably achievable. FINDINGS: No acute intracranial hemorrhage. No mass effect or midline shift. No extra axial fluid collection. No hydrocephalus. Alexandre-white differentiation is preserved. No depressed calvarial fracture. IMPRESSION: * No acute intracranial findings by CT. Finalized by Mao Kauffman MD on 09/12/2024 3:47 PM Procedure Note Mao Kauffman MD - 09/12/2024 CT BRAIN WO CONT CLINICAL INFORMATION: ams COMPARISON: None. PROCEDURE: Routine CT Head obtained without contrast. All CT scans at this facilityuse dose modulation, iterative reconstruction, and/or weight based dosingwhen appropriate to reduce radiation dose to as low as reasonablyachievable. FINDINGS: No acute intracranial hemorrhage. No mass effect or midline shift. Noextra axial fluid collection. No hydrocephalus. Alexandre-white differentiation is preserved. No depressed calvarial fracture. IMPRESSION: * No acute intracranial findings by CT. Finalized by Mao Kauffman MD on 09/12/2024 3:47 PM [facility] CEJA IM CT ORDERABLES Final Re sult * Critical Care (09/12/2024 3:33 PM EDT) Narrative Cinthya Simeon APRN-CNP - 09/12/2024 3:33 PM EDT MARCIAL Burks 09/12/2024 9:21 PM Critical Care Performed by: Collin Mark DO Authorized by: Collin Mark DO Critical care provider statement: Critical care time (minutes): 35 Critical care start time: 09/12/2024 4:22 PM Critical care end time: 09/12/2024 4:57 PM Critical care time was exclusive of: Separately billable procedures and treating other patients Critical care was necessary to treat or prevent imminent or life-threatening deterioration of the following conditions: Sepsis and metabolic crisis Critical care was time spent personally by me on the following activities: Ordering and performing treatments and interventions, ordering and review of laboratory studies, ordering and review of radiographic studies, re-evaluation of patient's condition, review of old charts, examination of patient, evaluation of patient's response to treatment, development of treatment plan with patient or surrogate, blood draw for specimens and obtaining history from patient or surrogate Care discussed with: admitting provider Collin Mark DO PROCEDURE/MINOR SURGICAL ORDERABLES Final Result from Last 3 Months Insurance [place]ICAID [place] [facility] MEDICARE [facility] MEDICARE [place]ICAID [place] Advance Directives * Full Code (Latest Code Status on File) Date Activated Date Inactivated Comments 09/12/2024 10:28 PM 09/18/2024 8:15 PM * Full Code Date Activated Date Inactivated Comments 05/08/2024 7:31 AM 05/18/2024 9:39 PM * Full Code Date Activated Date Inactivated Comments 05/07/2024 4:02 PM 05/07/2024 5:32 PM Care Teams Carbonator Relationship Specialty Start Date End Date [facility], [address] [place], [place] PCP - General Family Medicine 05/07/24
--- OUTSIDE RECORDS SUMMARY | 2024-09-30 12:12 | XMS_ITS | CCD ---
Author Organization [facility] Inform ion Partnership [facility] Care Team Providers Care Pediatric Registered Nurse Name Role Phone MD Sandra Branch Admit Provider MD Sandra Branch Attending Provider MD Igor Holliday Primary Care Provider DONTE Hawthorne Other Provider Unavailable DONTE Robles Other Provider Unavailable DONTE Tyler Other Provider Unavailable Cherise RN Joan Other Provider Unavailable DONTE Waters Other Provider Unavailable Bc RN Zeynep Other Provider Unavailable DONTE Pinto Other Provider Unavailable MD Bulmaro Alvarado Other Provider MD Christiano Smith Other Provider Dials, PEST CONTROL APPLICATOR Arlin Doyle Other Provider [phone] DO Aure Chavez Other Provider MD Hernandez Martines Other Provider [phone] DO Abilio Jackman Other Provider MD Markus Calzada Other Provider MD Lynn Silva Other Provider CHECO Barber-EDEN Larios Other Provider [phone] MD Patricia Gama Other Provider MD Julio Jimenez Other Provider MD Makeda Gan Other Provider MD Leyla Corona Other Provider MD Barrett Hall Other Provider MD Raghav Isidro Other Provider MD Bharath Cedeno Other Provider MD Christophe Thomas Other Provider JC Viveros Other Provider [phone] MD Tuan Bettencourt Other Provider MD Freedom Casas Other Provider MD Miles Galicia Other Provider Unavailable MD Kym Ward Other Provider MD Jaya Brito Other Provider MD Macario Disla Other Provider DO Carla Fountain Other Provider MD Berry Coates Other Provider DO Hamlet Avitia Other Provider DO Jose Ivy Other Provider [phone] MIKAELA Juan Other Provider DONTE Castillo Other Provider Unavailable Igor Holliday Primary Care Unavailable Sandra Branch Attending Unavailabl Sandra Elias Admitting Unavailabl Alexandra Kirkland Consulting Unavailable Myrna Robles Consulting Unavailable Gale Tyler Consulting Unavailable Jaon Luong Consulting Unavailable Daphne Waters Consulting Unavailable Zeynep Yancey Consulting Unavailable Kallie Pinto Consulting Unavailable Bulmaro Alvarado Consulting Unavailable LuisChristiano K Consulting Unavailable Arlin Corona Consulting Unavailable Aure Chavez Consulting Unavailable Hernandez Martines Consulting Unavailable Abilio Jackman Consulting Unavailabl Markus Stapleton Consulting Unavailable Lynn Silva Consulting Unavailable Harriet Barber Consulting Unavailable Patricia Gama Consulting Unavailable ZrJulio rosen Consulting Unavailable Gan, Makeda Consulting Unavailable CjSivakumar woodardwafernanda Consulting Unavailable Barrett Hall Consulting Unavailable Raghav Isidro Consulting Unavailable Bharath Cedeno Consulting Unavailable Christophe Thomas Consulting Unavailable Argenis Viveros Consulting Unavailable DoTuan velez Consulting Unavailab le Augusto, Freedom Consulting Unavailable Miles Galicia Consulting Unavailable EdKym quiros Consulting Unavailable Daryl, Jaya Consulting Unavailable Ghanbari Rostamabadelena, Macario Consulting Vidhya Carla Solorio Consulting Unavailable Al Berry Salgado Consulting Unavailab Hamlet Cool Consulting Unavailable Jose Ivy Consulting Unavailable Obika, Jessie Consulting Unavailable Elisa Castillo Consulting Unavailable Rosemary Baker MD Primary Care Provider Services, [facility] Provider PROVIDER, UNKNOWN Attending Unavailable PROVIDER, UNKNOWN Admitting Unavailable Services, [facility] Provider Shaikh Byrne MD Primary Care Provider ART BLUE Attending Unavailable CAYETANO, MERE Referring Unavailable Talib VAN, Alexander Manzo Attending Unavailable Talib VAN, Alexander Manzo Attending Unavailable Talib VAN, Alexander Manzo Attending Unavailable CAYETANO, MERE Referring Unavailable ROSEMARY BAKER Primary Care Unavailable SERVICES, [facility] Unava ilable ROYAL MICHELE Attending Unavailable MICI, BLANCA Attending Unavailable SERVICES, [facility] Unava ilable MICI, BLANCA Referring Unavailable SERVICES, [facility] Unava ilable SERVICES, [facility] Unava ilable AIDEN LOPEZ Attending Unavailable MICI, BLANCA Attending Unavailable MICI, BLANCA Referring Unavailable SERVICES, [facility] Unava ilable HERMANN MCCLOUD Attending Unavailable MAYA LUCIANO Admitting Unavailable GIOVANNI HDEZ Referring Unavailable SERVICES, [facility] Unava ilable BERRY SAEZ Consulting Unavailable [facility] [employer]. Consulting Unavailable PRACHI WEI Consulting Unavailable HOLLY SMITH Consulting Unavailable HARRISON ESPINAL Attending Unavailable HARRISON ESPINAL Referring Unavailable SERVICES, [facility] Unava ilable MAHDI, AHMAD Referring Unavailable SERVICES, [facility] Unava ilable MAHDI, AHMAD Referring Unavailable SERVICES, [facility] Unava ilable DEXTERGRETAEnoch Referring Unavailable SERVICES, [facility] Unava ilable HERMANN MCCLOUD Referring Unavailable SERVICES, [facility] Unava ilable KAYLA LINK Admitting Unavailable CINTHYA SIMEON Referring Unavailable SERVICES, [facility] Unava ilable KIMMY ATKINSON Consulting Unavailable RAYSA MEHTA Attending Unavailable ANA MARÍA SIERRA Consulting Unavailable LUIS CUTLER Consulting Unavailable MAYA LUCIANO Consulting Unavailable AIDEN LOPEZ Referring Unavailable SERVICES, [facility] Unava ilable Allergies Allergy Classification Reported Allergen(s) Allergy Type Date of Onset Reaction(s) Facility (15 sources) Sulfonamides (Antibiotic); Translations: [Sulfa (Sulfonamide Antibiotics)] Allergy to substance 8 Itching, Rash [facility] Medications Current Medications Medication Drug Class(es) Dates Sig (Normalized) Sig (Original) acetaminophen 325 mg oral tablet (1 source) Start: 05-09-2024 take 650 mg by mouth every four hours as needed for pain and headache acetaminophen 300 mg / codeine phosphate 30 mg oral tablet (2 sources) Opioid Agonist Start: 05-09-2024 diphenhydrAMINE (1 source) Histamine-1 Receptor Antagonist Start: 05-07-2024 ergocalciferol 1.25 mg oral capsule (1 source) Provitamin D2 Compound Start: 07-11-2021 Ergocalciferol (Vitamin D2) Active 1250 MCG PO We@0900 5 30 July 11, 2021 9:02am gabapentin 300 mg oral capsule (15 sources) Anti-epileptic Agent Start: 07-06-2021 End: 05-08-2024 glucagon (rdna) 1 mg injection (1 source) Antihypoglycemic Agent Start: 05-07-2024 glucose 0.4 mg/mg oral gel (3 sources) Start: 05-07-2024 Start: 05-07-2024 1 ml heparin sodium, porcine 5000 unt/ml injection (2 sources) Unfractionated Heparin, Anti-coagulant Start: 05-08-2024 Start: 05-07-2024 End: 05-08-2024 ivermectin 3 mg oral tablet (1 source) Antiparasitic, Pediculicide Start: 07-11-2021 Ivermectin (Stromectol) 3 mg Tablet Active 0 .ROUTE .COMPLEX July 11, 2021 9:39am 10.5 mg orally ;take 3.5 tabs on 07/13, 07/14, and 07/20 (for a total 5 dose course of which you received 2 doses while in hospital) LORazepam 0.5 mg oral tablet (6 sources) Benzodiazepine Start: 05-15-2024 End: 05-19-2024 Start: 05-07-2024 End: 05-15-2024 take 0.5 mg intravenously every six hours as needed fo r anxiety 1 ml morphine sulfate 2 mg/ml injection (2 sources) Opioid Agonist Start: 05-16-2024 take 2 mg intravenou sly every eight hours as needed Start: 05-07-2024 End: 05-16-2024 take 4 mg intravenously every two hours as needed for pain nitroglycerin 0.4 mg subling ual tablet (3 sources) Nitrate Vasodilator Start: 05-07-2024 End: 05-07-2024 Start: 05-07-2024 End: 05-07-2024 polyethylene glycol 3350 00113 mg powder for oral solution (1 source) Osmotic Laxative Start: 05-12-2024 pravastatin sodium 20 mg oral tablet (1 source) HMG-CoA Reductase Inhibitor Start: 07-11-2021 take 20 mg by mouth once daily in the evening Pravastatin Active 20 MG PO Every evening July 11, 2021 9:03am risperiDONE 1 mg oral tablet (1 source) Atypical Antipsychotic Start: 07-11-2021 take 1 mg by mouth at bedtime Risperidone Active 1 MG PO Bedtime July 11, 2021 9:03am 125 ml sodium chloride 9 mg/ml prefilled syringe (4 sources) Start: 05-07-2024 vitamin b12 1 mg oral tablet (1 source) Vitamin B12 Start: 07-11-2021 take 1000 ug by mouth once daily in the morning Cyanocobalamin (Vitamin B-12) Active 1000 MCG PO Every morning July 11, 2021 9:39am Completed/Discontinued Medications Medication Drug Class(es) Dates Sig (Normalized) Sig (Original) amLODIPine 2.5 mg oral tablet (4 sources) Dihydropyridine Calcium Channel Terrence Start: 09-25-2018 Start: 09-25-2018 take 1 tablet by ridge th in the morning amLODIPine (NORVASC) 5 mg tablet Take 1 tablet (5 mg total) by mouth in the morning. 1 09/25/2018 Suspended aspirin 81 mg chewable tablet (14 sources) Platelet Aggregation Inhibitor, Nonsteroidal Anti-inflammatory Drug Start: 05-18-2024 End: 06-12-2025 aspirin 81 mg chewable tablet Chew 1 tablet (81 mg total) and swallow in the morning for 360 days. 90 tablet 3 06/17/2024 06/12/2025 Suspended Start: 05-07-2024 End: 08-16-2024 Start: 05-07-2024 End: 05-07-2024 atorvastatin 80 mg oral tablet (14 sources) HMG-CoA Reductase Inhibitor Start: 05-18-2024 End: 06-17-2024 take 1 tablet by mouth once daily atorvastatin (LIPITOR) 80 mg tablet Take 1 tablet (80 mg total) by mouth nightly. 90 tablet 3 06/17/2024 Suspended Start: 05-08-2024 baclofen 10 mg oral tablet (4 sources) gamma-Aminobutyric Acid-ergic Agonist benzonatate 100 mg oral capsule (8 sources) Non-narcotic Antitussive Start: End: take 1 capsule by mouth three times daily as needed for cough benzonatate (TESSALON PERLES) 100 mg capsule Take 1 capsule (100 mg total) by mouth 3 (three) times a day as needed for cough. 05/18/2024 06/17/2024 Discontinued (Therapy completed) busPIRone hydrochloride 10 mg oral tablet (14 sources) Start: take 1 tablet by mouth in the morning, then take 1 tablet by mouth at bedtime busPIRone (BUSPAR) 10 mg tablet Take 1 tablet (10 mg total) by mouth in the morning and 1 tablet (10 mg total) before bedtime. 05/18/2024 Suspended Start: 04-29-2020 End: 05-18-2024 calcium chloride 0.0014 meq/ml / potassium chloride 0.004 meq/ml / sodium chloride 0.103 meq/ml / sodium lactate 0.028 meq/ml injectable solution (1 source) Start: 05-08-2024 End: 05-10-2024 cyclobenzaprine hydrochloride 10 mg oral tablet (6 sources) Muscle Relaxant Start: 07-06-2021 End: 05-08-2024 dapagliflozin 10 mg oral tablet (12 sources) Sodium-Glucose Cotransporter 2 Inhibitor Start: 05-18-2024 End: 06-12-2025 take 1 tablet by mouth in the morning dapagliflozin propanediol (FARXIGA) 10 mg tablet Take 1 tablet (10 mg total) by mouth in the morning for 360 days. 90 tablet 3 06/17/2024 06/12/2025 Suspended Start: 05-10-2024 End: 08-16-2024 docusate sodium 50 mg / sennosides, residential 8.6 mg oral tablet (11 sources) Start: 05-18-2024 take 2 tablets by mouth twice daily as needed for constipation sennosides-docusate sodium (SENOKOT-S) 8.6-50 mg Take 2 tablets by mouth 2 (two) times a day as needed for constipation. 05/18/2024 Suspended Start: 05-12-2024 250 ml DOPamine hydrochlorid e 1.6 mg/ml injection (1 source) Catecholamine Start: 05-07-2024 End: 05-08-2024 DULoxetine 60 mg delayed release oral capsule (15 sources) Serotonin and Norepinephrine Reuptake Inhibitor Start: 05-08-2024 Start: 07-06-2021 End: 05-18-2024 take 1 capsule by mouth in the morning DULoxetine (CYMBALTA) 60 mg capsule Take 1 capsule (60 mg total) by mouth in the morning. 05/18/2024 Suspended folic acid 1 mg oral tablet (11 sources) Start: 05-18-2024 take 1 tablet by mouth in the morning folic acid (FOLVITE) 1 mg tablet Take 1 tablet (1 mg total) by mouth in the morning. 05/18/2024 Suspended Start: 05-13-2024 ibuprofen 600 mg oral tablet (5 sources) Nonsteroidal Anti-inflammatory Drug Start: 10-30-2022 Start: 07-06-2021 take 600 mg by mouth every six hours Ibuprofen Active 600 MG PO Q6H July 06, 2021 4:32pm Magnesium Sulfate (Bulk) (Epsom Salt) 100 % Crystals (1 source) Start: 07-06-2021 End: 07-11-2021 Magnesium Sulfate (Bulk) (Ep juan Salt) 100 % Crystals Discontinued 1 APPLIC TOPICAL Three times daily July 06, 2021 5:11pm July 11, 2021 12:09pm melatonin 5 mg chewable tabl et (3 sources) End: 05-08-2024 melatonin 5 mg t ablet,chewable Chew 1 tablet and swallow nightly. 1-2 nightly Suspended 24 hr metoprolol succinate 25 mg extended release oral tablet (12 sources) beta-Adrenergic Terrence Start: 05-08-2024 End: 06-17-2024 take 0.5 tablet by mouth every twenty-four hours in the morning metoprolol succinate XL (TOPROL XL) 25 mg 24 hr tablet Indications: Chronic systolic heart failure (CMS-HCC) Take 0.5 tablets (12.5 mg total) by mouth in the morning. 45 tablet 3 06/17/2024 Suspended nicotine 4 mg chewing gum (5 sources) Cholinergic Nicotinic Agonist Start: 06-17-2024 nicotine polacrilex (NICORETTE) 4 MG gum Indications: Continuous tobacco abuse Chew 1 each (4 mg total) as directed as needed for smoking cessation. As recommended on Nicorette gum label, weeks 1-6 1 piece every 1-2 hours, week 7-9 1 piece every 2-4 hours, weeks 10-12 1 piece every 4-8 hours. Do not use nicotine gum simultaneously with other tobacco product 100 each 3 06/17/2024 Suspended Start: 05-11-2024 omeprazole 40 mg delayed rel ease oral capsule (3 sources) Proton Pump Inhibitor Start: 2018 End: 05-08-2024 Start: 2018 take 1 capsule by mo uth in the morning omeprazole (PriLOSEC) 40 mg capsule Take 1 capsule (40 mg total) by mouth in the morning. 0 2018 Suspended prasugrel 10 mg oral tablet (12 sources) P2Y12 Platelet Inhibitor Start: 05-18-2024 End: 06-17-2024 take 1 tablet by mouth in the morning prasugreL HCl (EFFIENT) 10 mg tablet Take 1 tablet (10 mg total) by mouth in the morning. 90 tablet 3 06/17/2024 Suspended Start: 05-08-2024 QUEtiapine 50 mg oral tablet (5 sources) Atypical Antipsychotic Start: 05-07-2024 End: 05-09-2024 spironolactone 25 mg oral tablet (12 sources) Aldosterone Antagonist Start: 05-18-2024 End: 06-17-2024 take 1 tablet by mouth in the morning spironolactone (ALDACTONE) 25 mg tablet Take 1 tablet (25 mg total) by mouth in the morning. 90 tablet 3 06/17/2024 Suspended Start: 05-11-2024 thiamine 100 mg oral tablet (12 sources) Start: 05-13-2024 take 1 tablet by mouth in the morning thiamine HCl (VITAMIN B-1) 100 mg tablet Take 1 tablet (100 mg total) by mouth in the morning. 05/18/2024 Suspended Start: 07-11-2021 take 100 mg by mouth once quyen y Thiamine Hcl (Vitamin B1) Active 100 MG PO Daily July 11, 2021 9:03am 100 ml tirofiban 0.05 mg/ml injection (1 source) Platelet Aggregation Inhibitor Start: 05-07-2024 End: 05-08-2024 valACYclovir 500 mg oral tab let (6 sources) Herpesvirus Nucleoside Analog DNA Polymerase Inhibitor, Herpes Simplex Virus Nucleoside Analog DNA Polymerase Inhibitor, Herpes Zoster Virus Nucleoside Analog DNA Polymerase Inhibitor Start: 08-30-2021 End: 05-08-2024 Start: 07-06-2021 take 500 mg by mouth once daily Valacyclovir Active 500 MG PO Daily July 06, 2021 5:42pm valsartan 40 mg oral tablet (12 sources) Angiotensin 2 Receptor Terrence Start: 05-18-2024 End: 06-17-2024 take 1 tablet by mouth in the morning, then take 1 tablet by mouth at bedtime valsartan (DIOVAN) 40 mg tablet Take 1 tablet (40 mg total) by mouth in the morning and 1 tablet (40 mg total) before bedtime. 90 tablet 3 06/17/2024 Suspended Start: 05-18-2024 Start: 05-10-2024 (7 sources) Start: 05-10-2024 End: 05-13-2024 take 500 mg intravenously every eight hours Start: 05-07-2024 [Order 1 Start ] Name: calcium gluconate IVPB 1000 mg/50 mL (20 mg/mL premix) Signed Summary: 1,000 mg, intravenous, at 50 mL/hr, Administer over 60 Minutes, As needed, for ionized calcium level 3.5 to 4.4 mg/dL, Starting on Mon05/07/24 at 2243, Recheck ionized calcium 6 hours after infusion. Hold calcium replacement for phosphorus greater than 5.5 mg/dL. VESICANT (RED) [Order 1 End] [Order 2 Start] Name: calcium gluconate IVPB 2000 mg/100 mL (20 mg/mL premix) Signed Summary: 2,000 mg, intravenous, at 100 mL/hr, Administer over 60 Minutes, As needed, for ionized calcium level 3 to 3.4 mg/dL, Starting on Mon05/07/24 at 2243, Recheck ionized calcium 6 hours after infusion. Hold calcium replacement for phosphorus greater than 5.5 mg/dL. VESICANT (RED) [Order 2 End] [Order 3 Start] Name: calcium gluconate 3,000 mg in sodium chloride 0.9 % 100 mL IVPB Signed Summary: 3,000 mg, intravenous, at 130 mL/hr, Administer over 60 Minutes, As needed, for ionized calcium level less than 3 mg/dL, Starting on Mon05/07/24 at 2243, CALL PHYSICIAN if this dose is administered. Recheck ionized calcium 6 hours after infusion. Hold calcium replacement for phosphorus greater than 5.5 mg/dL. VESICANT (RED) [Order 3 End] Start: 05-07-2024 [Order 1 Start ] Name: sodium phosphate 20 mmol in sodium chloride 0.9 % 250 mL IVPB Signed Summary: 20 mmol, intravenous, at 42.8 mL/hr, Administer over 6 Hours, As needed, for phosphorous level 2.3 mg/dL or less, Starting on Mon05/07/24 at 2243, Administer over 6 hours via dedicated line (peripheral line). If administered, recheck phosphorus level 4 hours after infusion complete. [Order 1 End] [Order 2 Start] Name: sodium phosphate 20 mmol in sodium chloride 0.9 % 100 mL IVPB Signed Summary: 20 mmol, intravenous, at 26.7 mL/hr, Administer over 4 Hours, As needed, for phosphorous level 2.3 mg/dL or less, Starting on Mon05/07/24 at 2243, Administer over 4 hours via dedicated line(central line). If administered, recheck phosphorus level 4 hours after infusion complete. Infuse using central line access. [Order 2 End] [Order 3 Start] Name: sod phos di, mono-K phos mono (K-PHOS NEUTRAL) 250 mg tablet 2 tablet Signed Summary: 2 tablet, oral, As needed, for phosphorous level 2.3 mg/dL or less, Starting on Mon05/07/24 at 2243, If dose administered, recheck phosphorus level 4 hours after last dose. Look-alike/sound-alike medication - verify indication for use. Give with a full glass of water. [Order 3 End] Start: 05-07-2024 [Order 1 Start ] Name: magnesium sulfate IVPB 2000 mg/50 mL in iso-osmotic water (40 mg/mL premix) Signed Summary: 2,000 mg, intravenous, at 25 mL/hr, Administer over 120 Minutes, As needed, for magnesium level 1.7 to 1.9 mg/dL or ionized magnesium level 0.45 to 0.5 mmol/L, Starting on Mon05/07/24 at 2243, Use premix solution. Default to ionized magnesium level in cases where patient has both magnesium and ionized magnesium results. If administered, check ionized magnesium (or total magnesium if ionized magnesium unavailable) level 4 hours after infusion. [Order 1 End] [Order 2 Start] Name: magnesium sulfate IVPB 4000 mg/100 mL in iso-osmotic water (40 mg/mL premix) Signed Summary: 4,000 mg, intravenous, at 25 mL/hr, Administer over 240 Minutes, As needed, for magnesium level 1.6 mg/mL or less, or ionized magnesium level 0.44 mmol/L or less, Starting on Mon05/07/24 at 2243, Use premix solution. Default to ionized magnesium level in cases where patient has both magnesium and ionized magnesium results. If administered, check ionized magnesium (or total magnesium if ionized magnesium unavailable) level 4 hours after infusion. [Order 2 End] Start: 05-07-2024 take 1 tablet by mouth once [O rder 1 Start] Name: potassium chloride (K-TAB,KLOR-CON) CR tablet 20-50 mEq Signed Summary: 20-50 mEq, oral, As needed, for potassium replacement, Starting on Mon05/07/24 at 2243, Progress to oral potassium replacement when patient tolerating oral intake. If dose administered, recheck potassium level 4 hours after last dose. For potassium level 3.4 to 3.8 mmol/L and Serum Creatinine 1.2 or less=30 mEq. For potassium level 3.1 to 3.3 mmol/L and Serum Creatinine 1.2 or less=40 mEq. For potassium level 3 mmol/L or less and Serum Creatinine 1.2 or less=50 mEq. For potassium level 3.4 to 3.8 mmol/L and Serum Creatinine greater than 1.2=20 mEq. For potassium level 3.1 to 3.3 mmol/L and Serum Creatinine greater than 1.2=30 mEq. For potassium level 3 mmol/L or less and Serum Creatinine greater than 1.2=40 mEq. Do not crush or chew. [Order 1 End] [Order 2 Start] Name: potassium chloride (KAYCIEL) 20 mEq/15 mL solution 20-50 mEq Signed Summary: 20-50 mEq, oral, As needed, potassium replacement, Starting on Mon05/07/24 at 2243, Progress to oral potassium replacement when patient [...] after per policy and monitor potassium levels [Order 2 End] Start: 05-07-2024 [Order 1 Start ] Name: potassium chloride IVPB 10 mEq/50 mL in water (0.2 mEq/mL premix) Signed Summary: 10 mEq, intravenous, at 50 mL/hr, Administer over 1 Hours, As needed, for potassium replacement, Starting on Mon05/07/24 at 2243, Administer Potassium Chloride IVPB in 10 mEq [...] than 1.2 = 40 mEq VESICANT (YELLOW) [Order 1 End] [Order 2 Start] Name: potassium chloride IVPB 10 mEq/100 mL in water (0.1 mEq/mL premix) Signed Summary: 10 mEq, intravenous, at 100 mL/hr, Administer over 60 Minutes, As needed, for potassium replacement, Starting on Mon05/07/24 at 2243, Administer Potassium Chloride IVPB in 10 mEq [...] mEq over a minimum of 1 hour. [Order 2 End] Start: 05-07-2024 End: 05-08-2024 Problems Active Problems Problem Classification Problem Date Documented Date Episodic/Chronic Acute and unspecified renal failure (1 source) Acute kidney failure, unspecified; Translations: [Acute kidney failure, unspecified] Onset: 09-12-2024 Episodic Acute myocardial infarction (15 sources) Myocardial infarction; Translations: [ST elevation (STEMI) myocardial infarction of unspecified site] Onset: 05-07-2024 05-07-2024 Chronic Administrative/social admission (4 sources) Bereavement; Translations: [Disappearance and of family member] 05-21-2024 Episodic Alcohol-related disorders (7 sources) Alcohol amnestic disorder; Translations: [Alcohol dependence with alcohol-induced persisting amnestic disorder] Onset: 07-06-2021 07-10-2021 Chronic Alcohol-related disorders (2 sources) Alcoholic encephalopathy; Translations: [Alcohol use, unspecified with alcohol-induced persisting amnestic disorder] 05-30-2024 Episodic Conduction disorders (18 sources) Complete atrioventricular block; Translations: [Atrioventricular block, complete] Onset: 05-07-2024 05-07-2024 Chronic Congestive heart failure; nonhypertensive (7 sources) Chronic systolic heart failure; Translations: [Chronic systolic (congestive) heart failure] Onset: 06-17-2024 06-17-2024 Chronic Coronary atherosclerosis and other heart disease (16 sources) Coronary arteriosclerosis; Translations: [Atherosclerotic heart disease of [place] coronary artery without angina pectoris] Onset: 05-07-2024 05-18-2024 Chronic Disorders of lipid metabolism (12 sources) Mixed hyperlipidemia; Translations: [Mixed hyperlipidemia] Onset: 05-11-2024 05-11-2024 Chronic E Codes: Fall (1 source) Fall Onset: 05-07-2024 Essential hypertension (14 sources) Hypertensive disorder; Translations: [Essential (primary) hypertension] Onset: 05-11-2024 06-18-2020 Chronic Malaise and fatigue (1 source) Fatigue Onset: 09-12-2024 Episodic Other infections; including parasitic (1 source) Infestation by Sarcoptes scabiei eleanor hominis; Translations: [Scabies] 07-06-2021 Episodic Other nervous system disorders (4 sources) Disturbance of attention; Translations: [Attention and concentration deficit] 05-21-2024 Chronic Other skin disorders (1 source) Eruption; Translations: [Rash and other nonspecific skin eruption] 07-06-2021 Episodic Other skin disorders (1 source) Rash and other nonspecific skin eruption; Translations: [Rash and other nonspecific skin eruption] Episodic Residual codes; unclassified (5 sources) Altered mental status; Translations: [Altered mental status, unspecified] Onset: 09-12-2024 05-18-2024 Episodic Residual codes; unclassified (4 sources) Amnesia; Translations: [Other amnesia] 05-21-2024 Episodic Residual codes; unclassified (4 sources) Family history of dementia; Translations: [Family history of other mental and behavioral disorders] 05-21-2024 Episodic Residual codes; unclassified (1 source) Tobacco user; Translations: [Tobacco use] 06-17-2024 Episodic Schizophrenia and other psychotic disorders (3 sources) Psychotic disorder; Translations: [Unspecified psychosis not due to a substance or known physiological condition] Onset: 07-06-2021 07-07-2021 Chronic Septicemia (except in labor) (3 sources) Sepsis; Translations: [Sepsis, unspecified organism] Onset: 09-12-2024 09-12-2024 Episodic Spondylosis; intervertebral disc disorders; other back problems (20 sources) Cervical spondylosis without myelopathy; Translations: [Spondylosis without myelopathy or radiculopathy, cervical region] Onset: 11-03-2017 11-18-2021 Chronic Unclassified (1 source) Hospital Follow-up Onset: 06-17-2024 Unclassified (1 source) EMS Onset: 05-07-2024 Unclassified (1 source) [facility] Onset: 05-07-2024 Past or Other Problems Problem Classification Problem Date Documented Date Episodic/Chronic Conditions associated with dizziness or vertigo (1 source) Dizziness and giddiness; Translations: [Dizziness and giddiness] Onset: 05-07-2024 Episodic E Codes: Fall (1 source) Unspecified fall, initial encounter; Translations: [Unspecified fall, initial encounter] Onset: 05-07-2024 Episodic Mood disorders (10 sources) Mood disorders Onset: 11-11-2021 11-11-2021 Other infections; including parasitic (2 sources) Scabies; Translations: [Scabies] Onset: 07-06-2021 Episodic Other screening for suspected conditions (not mental disorders or infectious disease) (3 sources) Encounter for screening for cardiovascular disorders; Translations: [Encounter for screening for diabetes mellitus] Onset: 04-06-2024 Episodic Residual codes; unclassified (2 sources) Altered mental status, unspecified; Translations: [Altered mental status, unspecified] Onset: 05-07-2024 Episodic Residual codes; unclassified (1 source) Tobacco use; Translations: [Tobacco use] Onset: 06-17-2024 Episodic Residual codes; unclassified (1 source) Other amnesia; Translations: [Other amnesia] Onset: 04-06-2024 Episodic Syncope (1 source) Syncope and collapse; Translations: [Syncope and collapse] Onset: 05-07-2024 Episodic Unclassified (10 sources) Onset: 06-18-2020 06-18-2020 Results Test Name Value Interpretation Reference Range Facility CBC WITH AUTO DIFFERENTIALon 09-18-2024 BASOPHILS ABSOLUTE COUNT (10*3/UL) BY AUTOMATED COUNT 0.1 10*3/uL Normal 0.0-0.2 [facility] Comment on above: Performed By: #### C BCA, PINR, 31582-7 #### [facility] ([id number]) [address], [address] [place] [address] BASOPHILS RELATIVE PERCENT BY AUTOMATED COUNT 0.7 % Normal [facility] Comment on above: Performed By: #### C BCA, PINR, 19122-4 #### [facility] ([id number]) [address], [address] [place] [address] CELLAVISION DIFFERENTIAL TYPE AUTOMATED DIFFERENTIAL Normal [facility] Comment on above: Performed By: #### C BCA, PINR, 55500-8 #### [facility] ([id number]) [address] [address], [address] [place] [address] Eosinophils (Bld) [#/Vol] 0.6 10*3/uL High 0.0-0.4 [facility] Comment on above: Performed By: #### C TALISHA, PINR, 10883-4 #### [facility] ([id number]) [address], [address] [place] [address] EOSINOPHILS RELATIVE PERCENT BY AUTOMATED COUNT 8.0 % Normal [facility] Comment on above: Performed By: #### C TALISHA, PINR, 90942-6 #### [facility] ([id number]) [address] [address] [place] [address] Erythrocyte distribution width (RBC) [Ratio] 14.2 % Normal 11.5-15 [facility] Comment on above: Performed By: #### Shira WOODALL, PINR, 89971-6 #### [facility] ([id number]) [address], [facility] [address] [place] [address] Hematocrit (Bld) [Volume fraction] 28.2 % Low 35-47 [facility] Comment on above: Performed By: #### Shira WOODALL, PINR, 73713-9 #### [facility] ([id number]) [address], [facility] [address] [place] [address] Hemoglobin (Bld) [Mass/Vol] 9.6 g/dL Low 11.7-15.5 [facility] Comment on above: Performed By: #### Shira WOODALL, PINR, 15536-7 #### [facility] ([id number]) [address], [facility] [address] [place] [address] LYMPHOCYTES ABSOLUTE COUNT (10*3/UL) BY AUTOMATED COUNT 1.2 10*3/uL Normal 1.0-3.5 [facility] Comment on above: Performed By: #### C TALISHA, PINR, 35627-0 #### [facility] ([id number]) [address], [facility] [address] [place] [address] LYMPHOCYTES RELATIVE PERCENT BY AUTOMATED COUNT 15.8 % Normal [facility] Comment on above: Performed By: #### SURENDRA Silva BCAR, 59453-1 #### [facility] ([id number]) [address], [address] [place] [address] MCH (RBC) [Entitic mass] 31.3 pg Normal 27-34 [facility] Comment on above: Performed By: #### Shira WOODALL PINR, 39493-9 #### [facility] ([id number]) [address], [address] [place] [address] MCHC (RBC) [Mass/Vol] 34.2 g/dL Normal 32-36 [facility] Comment on above: Performed By: #### Shira WOODALL PINR, 03667-0 #### [facility] ([id number]) [address], [address] [place] [address] MCV (RBC) [Entitic vol] 91 fL Normal 80-100 [facility] Comment on above: Performed By: #### Shira WOODALL PINR, 40968-8 #### [facility] ([id number]) [address], [address] [place] [address] MONOCYTES ABSOLUTE COUNT (10*3/UL) BY AUTOMATED COUNT 0.8 10*3/uL Normal 0.0-0.9 [facility] Comment on above: Performed By: #### SURENDRA Silva BCAR, 05535-8 #### [facility] ([id number]) [address], [address] [place] [address] MONOCYTES RELATIVE PERCENT BY AUTOMATED COUNT 9.9 % Normal [facility] Comment on above: Performed By: #### Shira WOODALL PINR, 76285-3 #### [facility] ([id number]) [address], [address] [place] [address] NEUTROPHILS ABSOLUTE COUNT BY AUTOMATED COUNT 5.0 10*3/uL Normal 1.5-6.6 [facility] Comment on above: Performed By: #### Shira WOODALL, PINR, 55665-1 #### [facility] ([id number]) [address], [address] [place] [address] NEUTROPHILS RELATIVE PERCENT BY AUTOMATED COUNT 65.6 % Normal [facility] Comment on above: Performed By: #### Shira WOODALL, PINR, 75874-3 #### [facility] ([id number]) [address], [address] [place] [address] Platelet mean volume (Bld) [Entitic vol] 8.2 fL Normal 7-12 [facility] Comment on above: Performed By: #### Shira WOODALL, PINR, 49979-7 #### [facility] ([id number]) [address], [address] [place] [address] Platelets (Bld) [#/Vol] 300 10*3/uL Normal 150-450 [facility] Comment on above: Performed By: #### Shira WOODALL, PINR, 34832-9 #### [facility] ([id number]) [address], [address] [place] [address] RBC COUNT 3.09 X10E12/L Low 3.8-5.2 [facility] Comment on above: Performed By: #### Shira WOODALL, PINR, 94927-1 #### [facility] ([id number]) [address], [address] [place] [address] WBC (Bld) [#/Vol] 7.7 10*3/uL Normal 4-11 [facility] Comment on above: Performed By: #### Shira WOODALL, PINR, 54560-7 #### [facility] ([id number]) [address], [address] [place] [address] COMPREHENSIVE METABOLIC PANE Brock 09-18-2024 Albumin [Mass/Vol] 2.9 g/dL Low 3.2-5.3 [facility] Comment on above: Performed By: #### C BCA, PINR, 81267-3 #### [facility] ([id number]) [address], [address] [place] [address] ALP [Catalytic activity/Vol] 80 U/L Normal 39-130 [facility] Comment on above: Performed By: #### C BCA, PINR, 62728-0 #### [facility] ([id number]) [address], [address] [place], [place] [address] ALT [Catalytic activity/Vol] 33 U/L High <=31 [facility] Comment on above: Performed By: #### C BCA, PINR, 67727-4 #### [facility] ([id number]) [address], [address] [place] [address] Anion gap [Moles/Vol] 6 mmol/L Normal 5-15 [facility] Comment on above: Performed By: #### C BCA, PINR, 86925-1 #### [facility] ([id number]) [address], [address] [place] [address] AST [Catalytic activity/Vol] 38 U/L Normal <=41 [facility] Comment on above: Performed By: #### C BCA, PINR, 61542-7 #### [facility] ([id number]) [address], [address] [place] [address] Bilirubin [Mass/Vol] 0.4 mg/dL Normal 0.3-1.2 [facility] Comment on above: Performed By: #### C BCA, PINR, 88091-5 #### [facility] ([id number]) [address], [address] [place] [address] Calcium [Mass/Vol] 8.1 mg/dL Low 8.5-10.5 [facility] Comment on above: Performed By: #### C BCA, PINR, 36465-4 #### [facility] ([id number]) [address], [address] [place] [address] Chloride [Moles/Vol] 107 mmol/L Normal 98-109 [facility] Comment on above: Performed By: #### C TALISHA PINR, 60279-1 #### [facility] ([id number]) [address], [address] [place] [address] CO2 [Moles/Vol] 24 mmol/L Normal 22-32 [facility] Comment on above: Performed By: #### C TALISHA PINR, 08304-9 #### [facility] ([id number]) [address], [address] [place] [address] Creatinine [Mass/Vol] 0.44 mg/dL Normal 0.40-1.00 [facility] Comment on above: Result Comment: METH OD TRACEABLE TO IDMS STANDARD Performed By: #### C KEVIN WOODALL, 80763-3 #### [facility] ([id number]) [address], [address] [place] [address] EGFR (CKD-EPI) NON-RACE DEPENDENT >^90 Normal >=60 [facility] Comment on above: Result Comment: Repo rted eGFR is based on the CKD-EPI 1 equation that does not use a race coefficient. Performed By: #### C SURENDRA WOODALLR, 27773-0 #### [facility] ([id number]) [address], [address] [place] [address] Glucose [Mass/Vol] 93 mg/dL Normal 65-99 [facility] Comment on above: Performed By: #### C TALISHA PINR, 37398-8 #### [facility] ([id number]) [address], [address] [place] [address] Potassium [Moles/Vol] 3.8 mmol/L Normal 3.5-5.0 [facility] Comment on above: Performed By: #### C TALISHA PINR, 10002-9 #### [facility] ([id number]) [address], [address] [place] [address] Protein [Mass/Vol] 5.5 g/dL Low 6.0-8.0 [facility] Comment on above: Performed By: #### Shira WOODALL PINR, 30958-9 #### [facility] ([id number]) [address], [address] [place] [address] Sodium [Moles/Vol] 137 mmol/L Normal 134-146 [facility] Comment on above: Performed By: #### Shira WOODALL PINR, 22215-9 #### [facility] ([id number]) [address], [address] [place] [address] Urea nitrogen [Mass/Vol] 11 mg/dL Normal 5-27 [facility] Comment on above: Performed By: #### Shira WOODALL PINR, 95589-3 #### [facility] ([id number]) [address], [address] [place] [address] MAGNESIUMon 09-18-2024 Magnesium [Mass/Vol] 1.6 mg/dL Low 1.8-2.6 [facility] Comment on above: Performed By: #### Shira WOODALL PINR, 48116-8 #### [facility] ([id number]) [address], [facility] [address] [place] [address] PHOSPHORUSon 09-18-2024 Phosphate [Mass/Vol] 3.5 mg/dL Normal 2.4-4.9 [facility] Comment on above: Performed By: #### Shira WOODALL PINR, 58976-2 #### [facility] ([id number]) [address], [address] [place] [address] CBC WITH AUTO DIFFERENTIALon 09-17-2024 BASOPHILS ABSOLUTE COUNT (10*3/UL) BY AUTOMATED COUNT 0.1 10*3/uL Normal 0.0-0.2 [facility] Comment on above: Performed By: #### C BCA, PINR, 97695-5 #### [facility] ([id number]) [address], [address] [place] [address] BASOPHILS RELATIVE PERCENT BY AUTOMATED COUNT 0.8 % Normal [facility] Comment on above: Performed By: #### C BCA, PINR, 33767-6 #### [facility] ([id number]) [address], [address] [place] [address] CELLAVISION DIFFERENTIAL TYPE AUTOMATED DIFFERENTIAL Normal [facility] Comment on above: Performed By: #### C TALISHA, PINR, 61391-7 #### [facility] ([id number]) [address] [place] [address] Eosinophils (Bld) [#/Vol] 0.9 10*3/uL High 0.0-0.4 [facility] Comment on above: Performed By: #### C BCA, PINR, 53504-2 #### [facility] ([id number]) [address], [address] [place] [address] EOSINOPHILS RELATIVE PERCENT BY AUTOMATED COUNT 8.1 % Normal [facility] Comment on above: Performed By: #### C BCA, PINR, 22000-9 #### [facility] ([id number]) [address], [address] [place] [address] Erythrocyte distribution width (RBC) [Ratio] 14.4 % Normal 11.5-15 [facility] Comment on above: Performed By: #### C BCA, PINR, 49098-7 #### [facility] ([id number]) [address], [address] [place] [address] Hematocrit (Bld) [Volume fraction] 27.4 % Low 35-47 [facility] Comment on above: Performed By: #### C BCA, PINR, 55191-3 #### [facility] ([id number]) [address] [address] [place] [address] Hemoglobin (Bld) [Mass/Vol] 9.5 g/dL Low 11.7-15.5 [facility] Comment on above: Performed By: #### Shira WOODALL, PINR, 04203-7 #### [facility] ([id number]) [address] [address] [place] [address] LYMPHOCYTES ABSOLUTE COUNT (10*3/UL) BY AUTOMATED COUNT 1.4 10*3/uL Normal 1.0-3.5 [facility] Comment on above: Performed By: #### Shira WOODALL, PINR, 03005-3 #### [facility] ([id number]) [address] [address] [place] [address] LYMPHOCYTES RELATIVE PERCENT BY AUTOMATED COUNT 13.5 % Normal [facility] Comment on above: Performed By: #### Shira WOODALL, PINR, 93780-1 #### [facility] ([id number]) [address] [address] [place] [address] MCH (RBC) [Entitic mass] 31.8 pg Normal 27-34 [facility] Comment on above: Performed By: #### Shira WOODALL, PINR, 28943-9 #### [facility] ([id number]) [address] [address] [place] [address] MCHC (RBC) [Mass/Vol] 34.6 g/dL Normal 32-36 [facility] Comment on above: Performed By: #### Shira WOODALL, PINR, 23952-8 #### [facility] ([id number]) [address] [address] [place] [address] MCV (RBC) [Entitic vol] 92 fL Normal 80-100 [facility] Comment on above: Performed By: #### Shira WOODALL, PINR, 71603-1 #### [facility] ([id number]) [address] [place] [address] MONOCYTES ABSOLUTE COUNT (10*3/UL) BY AUTOMATED COUNT 0.9 10*3/uL Normal 0.0-0.9 [facility] Comment on above: Performed By: #### C TALISHA, PINR, 13234-5 #### [facility] ([id number]) [address], [address] [place] [address] MONOCYTES RELATIVE PERCENT BY AUTOMATED COUNT 8.6 % Normal [facility] Comment on above: Performed By: #### C TALISHA, PINR, 69023-4 #### [facility] ([id number]) [address] [place] [address] NEUTROPHILS ABSOLUTE COUNT BY AUTOMATED COUNT 7.3 10*3/uL High 1.5-6.6 [facility] Comment on above: Performed By: #### Shira WOODALL, PINR, 45645-2 #### [facility] ([id number]) [address], [address] [place] [address] NEUTROPHILS RELATIVE PERCENT BY AUTOMATED COUNT 69.0 % Normal [facility] Comment on above: Performed By: #### Shira WOODALL, PINR, 63021-9 #### [facility] ([id number]) [address], [address] [place] [address] Platelet mean volume (Bld) [Entitic vol] 8.5 fL Normal 7-12 [facility] Comment on above: Performed By: #### Shira BCA, PINR, 24348-1 #### [facility] ([id number]) [address], [address] [place] [address] Platelets (Bld) [#/Vol] 310 10*3/uL Normal 150-450 [facility] Comment on above: Performed By: #### Shira BCA, PINR, 62767-8 #### [facility] ([id number]) [address], [address] [place] [address] RBC COUNT 2.99 X10E12/L Low 3.8-5.2 [facility] Comment on above: Performed By: #### C TALISHA PINR, 56195-3 #### [facility] ([id number]) [address], [address] [place] [address] WBC (Bld) [#/Vol] 10.5 10*3/uL Normal 4-11 [facility] Comment on above: Performed By: #### C TALISHA PINR, 70194-0 #### [facility] ([id number]) [address] [place] [address] COMPREHENSIVE METABOLIC PANE Brock 09-17-2024 Albumin [Mass/Vol] 2.7 g/dL Low 3.2-5.3 [facility] Comment on above: Performed By: #### Shira WOODALL PINR, 87801-6 #### [facility] ([id number]) [address], [address] [place] [address] ALP [Catalytic activity/Vol] 74 U/L Normal 39-130 [facility] Comment on above: Performed By: #### Shira WOODALL PINR, 64224-8 #### [facility] ([id number]) [address] [place] [address] ALT [Catalytic activity/Vol] 14 U/L Normal <=31 [facility] Comment on above: Performed By: #### Shira WOODALL PINR, 20733-7 #### [facility] ([id number]) [address], [address] [place] [address] Anion gap [Moles/Vol] 5 mmol/L Normal 5-15 [facility] Comment on above: Performed By: #### Shira WOODALL, PINR, 44423-4 #### [facility] ([id number]) [address] [place] [address] AST [Catalytic activity/Vol] 22 U/L Normal <=41 [facility] Comment on above: Performed By: #### C BCA, PINR, 34326-4 #### [facility] ([id number]) [address] [place] [address] Bilirubin [Mass/Vol] 0.6 mg/dL Normal 0.3-1.2 [facility] Comment on above: Performed By: #### C BCA, PINR, 06568-4 #### [facility] ([id number]) [address], [address] [place] [address] Calcium [Mass/Vol] 7.9 mg/dL Low 8.5-10.5 [facility] Comment on above: Performed By: #### C BCA, PINR, 80696-6 #### [facility] ([id number]) [address] [place] [address] Chloride [Moles/Vol] 106 mmol/L Normal 98-109 [facility] Comment on above: Performed By: #### C BCA, PINR, 96947-8 #### [facility] ([id number]) [address] [place] [address] CO2 [Moles/Vol] 26 mmol/L Normal 22-32 [facility] Comment on above: Performed By: #### C BCA, PINR, 40647-1 #### [facility] ([id number]) [address] [place] [address] Creatinine [Mass/Vol] 0.47 mg/dL Normal 0.40-1.00 [facility] Comment on above: Result Comment: METH OD TRACEABLE TO IDMS STANDARD Performed By: #### C BCA, PINR, 40528-8 #### [facility] ([id number]) [address] [place] [address] EGFR (CKD-EPI) NON-RACE DEPENDENT >^90 Normal >=60 [facility] Comment on above: Result Comment: Repo rted eGFR is based on the CKD-EPI 2020 equation that does not use a race coefficient. Performed By: #### C KEVIN WOODALL, 03700-0 #### [facility] ([id number]) [address] [place] [address] Glucose [Mass/Vol] 89 mg/dL Normal 65-99 [facility] Comment on above: Performed By: #### C KEVIN WOODALL, 36472-6 #### [facility] ([id number]) [address] [place] [address] Potassium [Moles/Vol] 3.6 mmol/L Normal 3.5-5.0 [facility] Comment on above: Performed By: #### KEVIN Silva BCA, 91351-8 #### [facility] ([id number]) [address] [place] [address] Protein [Mass/Vol] 5.1 g/dL Low 6.0-8.0 [facility] Comment on above: Performed By: #### KEVIN Silva BCA, 45713-9 #### [facility] ([id number]) [address] [place] [address] Sodium [Moles/Vol] 137 mmol/L Normal 134-146 [facility] Comment on above: Performed By: #### KEVIN Silva BCA, 91169-0 #### [facility] ([id number]) [address] [place] [address] Urea nitrogen [Mass/Vol] 5 mg/dL Normal 5-27 [facility] Comment on above: Performed By: #### KEVIN Silva BCA, 88345-7 #### [facility] ([id number]) [address] [place] [address] MAGNESIUMon 09-17-2024 Magnesium [Mass/Vol] 2.3 mg/dL Normal 1.8-2.6 [facility] [place] [facility] Comment on above: Performed By: #### Shira WOODALL, PINR, [id number] #### [facility] ([id number]) [address], [address] [place] [address] Magnesium [Mass/Vol] 1.6 mg/dL Low 1.8-2.6 [facility] Comment on above: Performed By: #### Shira WOODALL, PINR, [id number] #### [facility] ([id number]) [address], [address] [place] [address] PHOSPHORUSon 09-17-2024 Phosphate [Mass/Vol] 2.4 mg/dL Normal 2.4-4.9 [facility] Comment on above: Performed By: #### Shira WOODALL, PINR, [id number] #### [facility] ([id number]) [address], [address] [place] [address] C DIFFICILE BY PCRon 025 027 NAP1 Negative Normal Presumptive Negative [facility] Comment on above: Result Comment: Assa y methodology is nucleic acid amplification by real-time PCR for detection of C. difficile toxin gene sequences performed on [employer] Instrument System. Performed By: #### Shira WOODALL, PINR, [id number] #### [facility] ([id number]) [address], [address] [place] [address] TOXIGENIC C DIFF Negative Normal [facility] Comment on above: Performed By: #### Shira WOODALL, PINR, 17476-3 #### [facility] ([id number]) [address], [address] [place] [address] CBC WITH AUTO DIFFERENTIALon 09-16-2024 BASOPHILS ABSOLUTE COUNT (10*3/UL) BY AUTOMATED COUNT 0.1 10*3/uL Normal 0.0-0.2 [facility] Comment on above: Performed By: #### Shira WOODALL, PINR, 29415-4 #### [facility] ([id number]) [address], [address] [place] [address] BASOPHILS RELATIVE PERCENT BY AUTOMATED COUNT 0.4 % Normal [facility] Comment on above: Performed By: #### SURENDRA Silva BCAR, 58246-2 #### [facility] ([id number]) [address], [address] [place] [address] CELLAVISION DIFFERENTIAL TYPE AUTOMATED DIFFERENTIAL Normal [facility] Comment on above: Performed By: #### Shira WOODALL PINR, 28712-9 #### [facility] ([id number]) [address], [facility] [address] [place] [address] Eosinophils (Bld) [#/Vol] 0.9 10*3/uL High 0.0-0.4 [facility] Comment on above: Performed By: #### KEVIN Silva BCA, 11458-1 #### [facility] ([id number]) [address], [address] [place] [address] EOSINOPHILS RELATIVE PERCENT BY AUTOMATED COUNT 6.5 % Normal [facility] Comment on above: Performed By: #### Shira WOODALL PINR, 26807-2 #### [facility] ([id number]) [address], [address] [place] [address] Erythrocyte distribution width (RBC) [Ratio] 14.3 % Normal 11.5-15 [facility] Comment on above: Performed By: #### Shira WOODALL PINR, 45616-2 #### [facility] ([id number]) [address], [address] [place] [address] Hematocrit (Bld) [Volume fraction] 27.4 % Low 35-47 [facility] Comment on above: Performed By: #### Shira WOODALL PINR, 42411-5 #### [facility] ([id number]) [address], [address] [place] [address] Hemoglobin (Bld) [Mass/Vol] 9.3 g/dL Low 11.7-15.5 [facility] Comment on above: Performed By: #### C TALISHA, PINR, 30685-2 #### [facility] ([id number]) [address], [address] [place] [address] LYMPHOCYTES ABSOLUTE COUNT (10*3/UL) BY AUTOMATED COUNT 1.5 10*3/uL Normal 1.0-3.5 [facility] Comment on above: Performed By: #### C TALISHA, PINR, 16589-4 #### [facility] ([id number]) [address] [address] [place] [address] LYMPHOCYTES RELATIVE PERCENT BY AUTOMATED COUNT 11.0 % Normal [facility] Comment on above: Performed By: #### Shira WOODALL, PINR, 21024-4 #### [facility] ([id number]) [address], [facility] [address] [place] [address] MCH (RBC) [Entitic mass] 31.1 pg Normal 27-34 [facility] Comment on above: Performed By: #### Shira WOODALL, PINR, 07142-3 #### [facility] ([id number]) [address] [place] [address] MCHC (RBC) [Mass/Vol] 34.0 g/dL Normal 32-36 [facility] Comment on above: Performed By: #### Shira WOODALL, PINR, 69167-2 #### [facility] ([id number]) [address], [address] [place] [address] MCV (RBC) [Entitic vol] 91 fL Normal 80-100 [facility] Comment on above: Performed By: #### Shira WOODALL, PINR, 79401-2 #### [facility] ([id number]) [address], [facility] [address] [place] [address] MONOCYTES ABSOLUTE COUNT (10*3/UL) BY AUTOMATED COUNT 1.0 10*3/uL High 0.0-0.9 [facility] Comment on above: Performed By: #### C TALISHA, PINR, 12624-5 #### [facility] ([id number]) [address], [address] [place] [address] MONOCYTES RELATIVE PERCENT BY AUTOMATED COUNT 7.4 % Normal [facility] Comment on above: Performed By: #### C TALISHA, PINR, 52979-8 #### [facility] ([id number]) [address] [place] [address] NEUTROPHILS ABSOLUTE COUNT BY AUTOMATED COUNT 10.3 10*3/uL High 1.5-6.6 [facility] Comment on above: Performed By: #### C TALISHA, PINR, 72142-0 #### [facility] ([id number]) [address] [place] [address] NEUTROPHILS RELATIVE PERCENT BY AUTOMATED COUNT 74.7 % Normal [facility] Comment on above: Performed By: #### Shira WOODALL, PINR, 36909-5 #### [facility] ([id number]) [address], [address] [place] [address] Platelet mean volume (Bld) [Entitic vol] 8.3 fL Normal 7-12 [facility] Comment on above: Performed By: #### Shira WOODALL, PINR, 87105-0 #### [facility] ([id number]) [address] [place] [address] Platelets (Bld) [#/Vol] 328 10*3/uL Normal 150-450 [facility] Comment on above: Performed By: #### Shira WOODALL, PINR, 84517-2 #### [facility] ([id number]) [address] [place] [address] RBC COUNT 3.00 X10E12/L Low 3.8-5.2 [facility] Comment on above: Performed By: #### C BCA, PINR, 86636-3 #### [facility] ([id number]) [address], [address] [place] [address] WBC (Bld) [#/Vol] 13.8 10*3/uL High 4-11 [facility] Comment on above: Performed By: #### C BCA, PINR, 93084-7 #### [facility] ([id number]) [address], [address] [place] [address] COMPREHENSIVE METABOLIC PANE Brock 09-16-2024 Albumin [Mass/Vol] 2.8 g/dL Low 3.2-5.3 [facility] Comment on above: Performed By: #### C BCA, PINR, 19453-2 #### [facility] ([id number]) [address], [address] [place] [address] ALP [Catalytic activity/Vol] 72 U/L Normal 39-130 [facility] Comment on above: Performed By: #### C BCA, PINR, 38012-0 #### [facility] ([id number]) [address], [address] [place] [address] ALT [Catalytic activity/Vol] 7 U/L Normal <=31 [facility] Comment on above: Performed By: #### C BCA, PINR, 78346-8 #### [facility] ([id number]) [address], [address] [place] [address] Anion gap [Moles/Vol] 3 mmol/L Low 5-15 [facility] Comment on above: Performed By: #### C BCA, PINR, 67627-0 #### [facility] ([id number]) [address], [address] [place] [address] AST [Catalytic activity/Vol] 15 U/L Normal <=41 [facility] Comment on above: Performed By: #### C BCA, PINR, 78634-6 #### [facility] ([id number]) [address], [address] [place] [address] Bilirubin [Mass/Vol] 0.7 mg/dL Normal 0.3-1.2 [facility] Comment on above: Performed By: #### C BCA, PINR, 69835-3 #### [facility] ([id number]) [address], [address] [place] [address] Calcium [Mass/Vol] 7.9 mg/dL Low 8.5-10.5 [facility] Comment on above: Performed By: #### C BCA, PINR, 41685-5 #### [facility] ([id number]) [address], [address] [place] [address] Chloride [Moles/Vol] 107 mmol/L Normal 98-109 [facility] Comment on above: Performed By: #### C BCA, PINR, 89429-4 #### [facility] ([id number]) [address], [address] [place] [address] CO2 [Moles/Vol] 28 mmol/L Normal 22-32 [facility] Comment on above: Performed By: #### C BCA, PINR, 28999-7 #### [facility] ([id number]) [address], [address] [place] [address] Creatinine [Mass/Vol] 0.48 mg/dL Normal 0.40-1.00 [facility] Comment on above: Result Comment: METH OD TRACEABLE TO IDMS STANDARD Performed By: #### C BCA, PINR, 89298-8 #### [facility] ([id number]) [address], [address] [place], [place] [address] EGFR (CKD-EPI) NON-RACE DEPENDENT >^90 Normal >=60 [facility] Comment on above: Result Comment: Repo rted eGFR is based on the CKD-EPI 2020 equation that does not use a race coefficient. Performed By: #### C BCA, PINR, 73418-0 #### [facility] ([id number]) [address], [address] [place] [address] Glucose [Mass/Vol] 96 mg/dL Normal 65-99 [facility] Comment on above: Performed By: #### C BCA, PINR, 23825-2 #### [facility] ([id number]) [address], [address] [place] [address] Potassium [Moles/Vol] 4.2 mmol/L Normal 3.5-5.0 [facility] Comment on above: Performed By: #### C BCA, PINR, 12917-3 #### [facility] ([id number]) [address] [place] [address] Protein [Mass/Vol] 5.3 g/dL Low 6.0-8.0 [facility] Comment on above: Performed By: #### C BCA, PINR, 78347-0 #### [facility] ([id number]) [address], [address] [place] [address] Sodium [Moles/Vol] 138 mmol/L Normal 134-146 [facility] Comment on above: Performed By: #### C BCA, PINR, 06851-1 #### [facility] ([id number]) [address], [address] [place] [address] Urea nitrogen [Mass/Vol] 9 mg/dL Normal 5-27 [facility] Comment on above: Performed By: #### C BCA, PINR, 69517-0 #### [facility] ([id number]) [address], [address] [place], [place] [address] CT ABDOMEN AND PELVIS W CONT on 09-16-2024 CT ABDOMEN AND PELVIS W CONT CT ABDOMEN AND PELVIS W CONT EXAM: ABDOMEN AND PELVIS CT WITH CONTRAST [...] Paras Nixon MD on 09/16/2024 2:53 PM Normal [facility] IONIZED CALCIUMon 09-16-2024 IONIZED CALCIUM - ICAN 4.5 mg/dL Normal 4.5-5.3 Pr [facility] Comment on above: Performed By: #### C KEVIN WOODALL, 44198-8 #### [facility] ([id number]) [address] [facility] [facility] [place] [address] MAGNESIUMon 09-16-2024 Magnesium [Mass/Vol] 1.9 mg/dL Normal 1.8-2.6 [facility] Comment on above: Performed By: #### C KEVIN WOODALL, 60998-0 #### [facility] ([id number]) [address] [place] [address] PHOSPHORUSon 09-16-2024 Phosphate [Mass/Vol] 1.5 mg/dL Low 2.4-4.9 [facility] Comment on above: Performed By: #### C TALISHA, PINR, 96819-8 #### [facility] ([id number]) [address] [place] [address] CBC WITH AUTO DIFFERENTIALon 09-15-2024 BASOPHILS ABSOLUTE COUNT (10*3/UL) BY AUTOMATED COUNT 0.1 10*3/uL Normal 0.0-0.2 [facility] Comment on above: Performed By: #### C TALISHA, PINR, 17992-5 #### [facility] ([id number]) [address] [place] [address] BASOPHILS RELATIVE PERCENT BY AUTOMATED COUNT 0.3 % Normal [facility] Comment on above: Performed By: #### C TALISHA, PINR, 32426-7 #### [facility] ([id number]) [address], [address] [place] [address] CELLAVISION DIFFERENTIAL TYPE AUTOMATED DIFFERENTIAL Normal [facility] Comment on above: Performed By: #### C BCA, PINR, 80290-0 #### [facility] ([id number]) [address] [place] [address] Eosinophils (Bld) [#/Vol] 0.4 10*3/uL Normal 0.0-0.4 [facility] Comment on above: Performed By: #### C TALISHA, PINR, 74367-6 #### [facility] ([id number]) [address] [place] [address] EOSINOPHILS RELATIVE PERCENT BY AUTOMATED COUNT 2.2 % Normal [facility] Comment on above: Performed By: #### C BCA, PINR, 98170-0 #### [facility] ([id number]) [address] [place] [address] Erythrocyte distribution width (RBC) [Ratio] 14.5 % Normal 11.5-15 [facility] Comment on above: Performed By: #### C TALISHA, PINR, 18582-9 #### [facility] ([id number]) [address], [facility] [address] [place] [address] Hematocrit (Bld) [Volume fraction] 28.6 % Low 35-47 [facility] Comment on above: Performed By: #### Shira WOODALL, PINR, 55327-5 #### [facility] ([id number]) [address] [facility] [address] [place] [address] Hemoglobin (Bld) [Mass/Vol] 9.8 g/dL Low 11.7-15.5 [facility] Comment on above: Performed By: #### Shira WOODALL, PINR, 16997-8 #### [facility] ([id number]) [address], [facility] [address] [place] [address] LYMPHOCYTES ABSOLUTE COUNT (10*3/UL) BY AUTOMATED COUNT 1.8 10*3/uL Normal 1.0-3.5 [facility] Comment on above: Performed By: #### Shira WOODALL, PINR, 76477-5 #### [facility] ([id number]) [address] [address] [place] [address] LYMPHOCYTES RELATIVE PERCENT BY AUTOMATED COUNT 8.8 % Normal [facility] Comment on above: Performed By: #### Shira BCA, PINR, 69609-5 #### [facility] ([id number]) [address] [address] [place] [address] MCH (RBC) [Entitic mass] 31.1 pg Normal 27-34 [facility] Comment on above: Performed By: #### Shira WOODALL, PINR, 16448-0 #### [facility] ([id number]) [address] [place] [address] MCHC (RBC) [Mass/Vol] 34.2 g/dL Normal 32-36 [facility] Comment on above: Performed By: #### C BCA, PINR, 60454-2 #### [facility] ([id number]) [address] [place] [address] MCV (RBC) [Entitic vol] 91 fL Normal 80-100 [facility] Comment on above: Performed By: #### C TALISHA, PINR, 60434-0 #### [facility] ([id number]) [address] [place] [address] MONOCYTES ABSOLUTE COUNT (10*3/UL) BY AUTOMATED COUNT 1.2 10*3/uL High 0.0-0.9 [facility] Comment on above: Performed By: #### Shira WOODALL, PINR, 60195-2 #### [facility] ([id number]) [address] [place] [address] MONOCYTES RELATIVE PERCENT BY AUTOMATED COUNT 6.1 % Normal [facility] Comment on above: Performed By: #### Shira BCA, PINR, 26150-0 #### [facility] ([id number]) [address] [place] [address] NEUTROPHILS ABSOLUTE COUNT BY AUTOMATED COUNT 16.8 10*3/uL High 1.5-6.6 [facility] Comment on above: Performed By: #### C BCA, PINR, 96200-3 #### [facility] ([id number]) [address] [place] [address] NEUTROPHILS RELATIVE PERCENT BY AUTOMATED COUNT 82.6 % Normal [facility] Comment on above: Performed By: #### C BCA, PINR, 72708-3 #### [facility] ([id number]) [address] [place] [address] Platelet mean volume (Bld) [Entitic vol] 8.1 fL Normal 7-12 [facility] Comment on above: Performed By: #### C BCA, PINR, 72908-8 #### [facility] ([id number]) [address] [place] [address] Platelets (Bld) [#/Vol] 329 10*3/uL Normal 150-450 [facility] Comment on above: Performed By: #### C BCA, PINR, 02124-5 #### [facility] ([id number]) [address] [place] [address] RBC COUNT 3.15 X10E12/L Low 3.8-5.2 [facility] Comment on above: Performed By: #### Shira BCA, PINR, 79334-5 #### [facility] ([id number]) [address] [place] [address] WBC (Bld) [#/Vol] 20.3 10*3/uL High 4-11 [facility] Comment on above: Performed By: #### C BCA, PINR, 58859-6 #### [facility] ([id number]) [address] [place] [address] COMPREHENSIVE METABOLIC PANE Brock 09-15-2024 Albumin [Mass/Vol] 3.1 g/dL Low 3.2-5.3 [facility] Comment on above: Performed By: #### C BCA, PINR, 58653-2 #### [facility] ([id number]) [address] [place] [address] ALP [Catalytic activity/Vol] 76 U/L Normal 39-130 [facility] Comment on above: Performed By: #### C BCA, PINR, 67359-9 #### [facility] ([id number]) [address] [place] [address] ALT [Catalytic activity/Vol] 8 U/L Normal <=31 [facility] Comment on above: Performed By: #### C TALISHA PINR, 58612-0 #### [facility] ([id number]) [address] [place] [address] Anion gap [Moles/Vol] 3 mmol/L Low 5-15 [facility] Comment on above: Performed By: #### C TALISHA PINR, 27997-9 #### [facility] ([id number]) [address] [place] [address] AST [Catalytic activity/Vol] 12 U/L Normal <=41 [facility] Comment on above: Performed By: #### Shira WOODALL PINR, 21304-8 #### [facility] ([id number]) [address] [place] [address] Bilirubin [Mass/Vol] 0.7 mg/dL Normal 0.3-1.2 [facility] Comment on above: Performed By: #### Shira WOODALL PINR, 54447-8 #### [facility] ([id number]) [address] [place] [address] Calcium [Mass/Vol] 7.9 mg/dL Low 8.5-10.5 [facility] Comment on above: Performed By: #### Shira WOODALL PINR, 08944-5 #### [facility] ([id number]) [address] [place] [address] Chloride [Moles/Vol] 104 mmol/L Normal 98-109 [facility] Comment on above: Performed By: #### C TALISHA, PINR, 19320-9 #### [facility] ([id number]) [address] [place] [address] CO2 [Moles/Vol] 34 mmol/L High 22-32 [facility] Comment on above: Performed By: #### C TALISHA PINR, 71862-8 #### [facility] ([id number]) [address] [address] [place] [address] Creatinine [Mass/Vol] 0.63 mg/dL Normal 0.40-1.00 [facility] Comment on above: Result Comment: METH OD TRACEABLE TO IDMS STANDARD Performed By: #### C TALISHA PINR, 95588-9 #### [facility] ([id number]) [address] [place] [address] EGFR (CKD-EPI) NON-RACE DEPENDENT >^90 Normal >=60 [facility] Comment on above: Result Comment: [facility] eGFR is based on the CKD-EPI 2020 equation that does not use a race coefficient. Performed By: #### C TALISHA PINR, 90933-2 #### [facility] ([id number]) [address] [place] [address] Glucose [Mass/Vol] 116 mg/dL High 65-99 [facility] Comment on above: Performed By: #### C TALISHA PINR, 05549-2 #### [facility] ([id number]) [address] [address] [place] [address] Potassium [Moles/Vol] 3.6 mmol/L Normal 3.5-5.0 [facility] Comment on above: Performed By: #### C TALISHA PINR, 50433-2 #### [facility] ([id number]) [address] [place] [address] Protein [Mass/Vol] 5.7 g/dL Low 6.0-8.0 [facility] Comment on above: Performed By: #### C TALISHA PINR, 15522-7 #### [facility] ([id number]) [address] [address] [place] [address] Sodium [Moles/Vol] 141 mmol/L Normal 134-146 [facility] Comment on above: Performed By: #### Shira WOODALL, PINR, 12637-1 #### [facility] ([id number]) [address] [place] [address] Urea nitrogen [Mass/Vol] 26 mg/dL Normal 5-27 [facility] Comment on above: Performed By: #### Shira WOODALL PINR, 17495-3 #### [facility] ([id number]) [address] [place] [address] IONIZED CALCIUMon 09-15-2024 IONIZED CALCIUM - ICAN 4.6 mg/dL Normal 4.5-5.3 Pr [facility] Comment on above: Performed By: #### Shira WOODALL, PINR, 66967-9 #### [facility] ([id number]) [address] [place] [address] IONIZED CALCIUM - ICAN 4.4 mg/dL Low 4.5-5.[address] [facility] Comment on above: Performed By: #### Shira WOODALL, PINR, 42353-7 #### [facility] ([id number]) [address] [place] [address] MAGNESIUMon 09-15-2024 Magnesium [Mass/Vol] 2.8 mg/dL High 1.8-2.6 [facility] Comment on above: Performed By: #### Shira WOODALL, PINR, 82034-7 #### [facility] ([id number]) [address] [place] [address] PHOSPHORUSon 09-15-2024 Phosphate [Mass/Vol] 1.4 mg/dL Low 2.4-4.9 [facility] Comment on above: Performed By: #### Shira WOODALL, PINR, [id number] #### [facility] ([id number]) [address], [address] [place], [place] [address] POTASSIUMon 09-15-2024 Potassium [Moles/Vol] 3.8 mmol/L Normal 3.5-5.0 [facility] Comment on above: Performed By: #### SURENDRA Silva BCAR, [id number] #### [facility] ([id number]) [address], [address] [place] [address] Potassium [Moles/Vol] 3.8 mmol/L Normal 3.5-5.0 [facility] Comment on above: Performed By: #### KEVIN Silva BCA, [id number] #### [facility] ([id number]) [address] [address] KANG SCREEN W/ REFLEXon 09-14 KANG SCREEN W/REFLEX Negative Normal Negative [facility] Comment on above: Order Comment: Testi ng performed using multiplex flow immunoassay. Eleven difference antigens associated with systemic autoimmunie diseases (dsDNA, Sm, Sm/EXPERIENCED TRUCK DRIVER, EXPERIENCED TRUCK DRIVER, Chromatin, SSA, SSB, Niurka-1, Sc170, Ribo P, Centromere B) are included in this sreening tests. Performed By: #### KEVIN Silva BCA, [id number] #### [facility] ([id number]) [address] [address] ANTI-RAYMOND ANTIBODY IGGon ANTI-RAYMOND AB IGG <^0.2 Normal <1.0 [facility] Comment on above: Performed By: #### SURENDRA Silva BCAR, [id number] #### [facility] ([id number]) [address] [address] CBC WITH AUTO DIFFERENTIALon 09-14-2024 BASOPHILS ABSOLUTE COUNT (10*3/UL) BY AUTOMATED COUNT 0.0 10*3/uL Normal 0.0-0.2 [facility] Comment on above: Performed By: #### SURENDRA Silva BCAR, [id number] #### [facility] ([id number]) [address] [address] BASOPHILS RELATIVE PERCENT BY AUTOMATED COUNT 0.2 % Normal [facility] Comment on above: Performed By: #### KEVIN Silva BCA, 30015-9 #### [facility] ([id number]) [address] [place] [address] CELLAVISION DIFFERENTIAL TYPE AUTOMATED DIFFERENTIAL Normal [facility] Comment on above: Performed By: #### KEVIN Silva BCA, 10572-4 #### [facility] ([id number]) [address] [place] [address] Eosinophils (Bld) [#/Vol] 0.1 10*3/uL Normal 0.0-0.4 [facility] Comment on above: Performed By: #### KEVIN Silva BCA, 07714-7 #### [facility] ([id number]) [address] [place] [address] EOSINOPHILS RELATIVE PERCENT BY AUTOMATED COUNT 0.6 % Normal [facility] Comment on above: Performed By: #### KEVIN Silva BCA, 39364-8 #### [facility] ([id number]) [address] [place] [address] Erythrocyte distribution width (RBC) [Ratio] 14.9 % Normal 11.5-15 [facility] Comment on above: Performed By: #### KEVIN Silva BCA, 28054-3 #### [facility] ([id number]) [address] [place] [address] Hematocrit (Bld) [Volume fraction] 29.7 % Low 35-47 [facility] Comment on above: Performed By: #### SURENDRA Silva BCAR, 03926-2 #### [facility] ([id number]) [address] [address] [place] [address] Hemoglobin (Bld) [Mass/Vol] 10.3 g/dL Low 11.7-15.5 [facility] Comment on above: Performed By: #### C TALISHA, PINR, 46561-5 #### [facility] ([id number]) [address] [place] [address] LYMPHOCYTES ABSOLUTE COUNT (10*3/UL) BY AUTOMATED COUNT 1.2 10*3/uL Normal 1.0-3.5 [facility] Comment on above: Performed By: #### C BCA, PINR, 45828-9 #### [facility] ([id number]) [address] [facility] [address] [place] [address] LYMPHOCYTES RELATIVE PERCENT BY AUTOMATED COUNT 5.5 % Normal [facility] Comment on above: Performed By: #### Shira WOODALL, PINR, 79987-6 #### [facility] ([id number]) [address] [facility] [address] [place] [address] MCH (RBC) [Entitic mass] 31.0 pg Normal 27-34 [facility] Comment on above: Performed By: #### Shira WOODALL, PINR, 46029-2 #### [facility] ([id number]) [address] [facility] [address] [place] [address] MCHC (RBC) [Mass/Vol] 34.6 g/dL Normal 32-36 [facility] Comment on above: Performed By: #### Shira WOODALL, PINR, 77978-1 #### [facility] ([id number]) [address] [facility] [address] [place] [address] MCV (RBC) [Entitic vol] 90 fL Normal 80-100 P [facility] Comment on above: Performed By: #### Shira WOODALL, PINR, 16413-6 #### [facility] ([id number]) [address] [place] [address] MONOCYTES ABSOLUTE COUNT (10*3/UL) BY AUTOMATED COUNT 1.2 10*3/uL High 0.0-0.9 [facility] Comment on above: Performed By: #### C BCA, PINR, 52912-1 #### [facility] ([id number]) [address] [place] [address] MONOCYTES RELATIVE PERCENT BY AUTOMATED COUNT 5.4 % Normal [facility] Comment on above: Performed By: #### C BCA, PINR, 63762-3 #### [facility] ([id number]) [address] [place], [place] [address] NEUTROPHILS ABSOLUTE COUNT BY AUTOMATED COUNT 19.7 10*3/uL High 1.5-6.6 [facility] Comment on above: Performed By: #### Shira WOODALL, PINR, 62471-4 #### [facility] ([id number]) [address] [place] [address] NEUTROPHILS RELATIVE PERCENT BY AUTOMATED COUNT 88.3 % Normal [facility] Comment on above: Performed By: #### Shira BCA, PINR, 75442-1 #### [facility] ([id number]) [address] [place] [address] Platelet mean volume (Bld) [Entitic vol] 8.2 fL Normal 7-12 [facility] Comment on above: Performed By: #### Shira WOODALL, PINR, 76889-8 #### [facility] ([id number]) [address] [place] [address] Platelets (Bld) [#/Vol] 283 10*3/uL Normal 150-450 [facility] Comment on above: Performed By: #### Shira BCA, PINR, 32639-8 #### [facility] ([id number]) [address] [place] [address] RBC COUNT 3.32 X10E12/L Low 3.8-5.2 [facility] Comment on above: Performed By: #### Shira BCA, PINR, 23517-8 #### [facility] ([id number]) [address] [place] [address] WBC (Bld) [#/Vol] 22.3 10*3/uL High 4-11 [facility] Comment on above: Performed By: #### C BCA, PINR, 28167-4 #### [facility] ([id number]) [address] [place] [address] COMPLEMENT PROFILE (C3 AND C 4)on 09-14-2024 COMPLEMENT C3 102 mg/dL Normal 86-184 [facility] Comment on above: Performed By: #### C BCA, PINR, 83182-5 #### [facility] ([id number]) [address] [place] [address] COMPLEMENT C4 20 mg/dL Normal 16-47 [facility] Comment on above: Performed By: #### C BCA, PINR, 42655-0 #### [facility] ([id number]) [address] [place] [address] COMPREHENSIVE METABOLIC PANE Brock 09-14-2024 Albumin [Mass/Vol] 3.1 g/dL Low 3.2-5.3 [facility] Comment on above: Performed By: #### C BCA, PINR, 95108-2 #### [facility] ([id number]) [address] [place] [address] ALP [Catalytic activity/Vol] 72 U/L Normal 39-130 [facility] Comment on above: Performed By: #### C BCA, PINR, 12538-7 #### [facility] ([id number]) [address] [place] [address] ALT [Catalytic activity/Vol] 8 U/L Normal <=31 [facility] Comment on above: Performed By: #### C BCA, PINR, 95465-4 #### [facility] ([id number]) [address] [place] [address] Anion gap [Moles/Vol] 10 mmol/L Normal 5-15 [facility] Comment on above: Performed By: #### C TALISHA PINR, 02384-2 #### [facility] ([id number]) [address] [place] [address] AST [Catalytic activity/Vol] 14 U/L Normal <=41 [facility] Comment on above: Performed By: #### C TALISHA, PINR, 36138-3 #### [facility] ([id number]) [address] [place] [address] Bilirubin [Mass/Vol] 0.5 mg/dL Normal 0.3-1.2 [facility] Comment on above: Performed By: #### Shira WOODALL PINR, 13116-2 #### [facility] ([id number]) [address] [place] [address] Calcium [Mass/Vol] 6.9 mg/dL Critically low 8.5-10.[address] [facility] Comment on above: Performed By: #### C TALISHA, PINR, 54917-5 #### [facility] ([id number]) [address] [place] [address] Chloride [Moles/Vol] 95 mmol/L Low 98-109 [facility] Comment on above: Performed By: #### C TALISHA, PINR, 16022-5 #### [facility] ([id number]) [address] [place] [address] CO2 [Moles/Vol] 32 mmol/L Normal 22-32 [facility] Comment on above: Performed By: #### Shira BCA, PINR, 55038-2 #### [facility] ([id number]) [address] [place] [address] Creatinine [Mass/Vol] 1.15 mg/dL High 0.40-1.00 [facility] Comment on above: Result Comment: METH OD TRACEABLE TO IDMS STANDARD Performed By: #### C KEVIN WOODALL, 53067-6 #### [facility] ([id number]) [address] [place] [address] GFR/1.73 sq M.predicted among non-blacks MDRD (S/P/Bld) [Vol rate/Area] 54 mL/min/{1.73_m2} Low >=60 [facility] Comment on above: Result Comment: Repo rted eGFR is based on the CKD-EPI 2020 equation that does not use a race coefficient. Performed By: #### C KEVIN WOODALL, 55518-0 #### [facility] ([id number]) [address] [place] [address] Glucose [Mass/Vol] 161 mg/dL High 65-99 [facility] Comment on above: Performed By: #### KEVIN Silva BCA, 60874-3 #### [facility] ([id number]) [address] [place] [address] Potassium [Moles/Vol] 2.8 mmol/L Low 3.5-5.0 [facility] Comment on above: Performed By: #### KEVIN Silva BCA, 42873-5 #### [facility] ([id number]) [address] [place] [address] Protein [Mass/Vol] 5.7 g/dL Low 6.0-8.0 [facility] Comment on above: Performed By: #### KEVIN Silva BCA, 70311-3 #### [facility] ([id number]) [address] [place] [address] Sodium [Moles/Vol] 137 mmol/L Normal 134-146 [facility] Comment on above: Performed By: #### KEVIN Silva BCA, 24899-9 #### [facility] ([id number]) [address] [place] [address] Urea nitrogen [Mass/Vol] 79 mg/dL High 5-27 [facility] Comment on above: Performed By: #### C TALISHA, PINR, 92925-9 #### [facility] ([id number]) [address] [place] [address] CYTOPLASMIC NEUTROPHILIC AB (ANCA), Son 09-14-2024 C-ANCA Negative Normal Negative [facility] Comment on above: Performed By: #### C KEVIN WOODALL, 90563-9 #### [facility] ([id number]) [address] [place] [address] P-ANCA Negative Normal Negative [facility] Comment on above: Result Comment: Nega tive for cANCA and pANCA patterns by immunofluorescence. ADDITIONAL INFORMATION This test was developed and its performance characteristics determined by [facility] in a manner consistent with CLIA requirements. This test has not been cleared or approved by the U.S. Food and Drug Administration. Test Performed by: [id number] [place] [address] Ambulatory Care Nurse: Ester Macdonald Ph.D.; CLIA# [id number] Performed By: #### C TALISHA PINR, 14665-3 #### [facility] ([id number]) [address] [place] [address] GLOMERULAR BASEMENT MEMBRANE IGG ABon 09-14-2024 GBM IGG AB <^0.2 Normal <1.0 [facility] Comment on above: Performed By: #### C TALISHA, PINR, 97021-9 #### [facility] ([id number]) [address] [place] [address] HEPATITIS B SURFACE ANTIBODY QUANTITATIONon 09-14-2024 ANTI HBS QUANT. <^3.0 Normal [facility] Comment on above: Order Comment: Vacci nated: >=10 mIU/mL, Positive (Immune)Unvaccinated: <10 mIU/mL, Negative (Not Immune) Performed By: #### C TALISHA PINR, 00296-7 #### [facility] ([id number]) [address] [place] [address] HEPATITIS B SURFACE ANTIGENo n 09-14-2024 HEPATITIS B SURF AG Non-Reactive Normal Non-Reactive P [facility] Comment on above: Performed By: #### C TALISHA PINDanny, 14344-0 #### [facility] ([id number]) [address] [place] [address] HEPATITIS C(HCV) ANTIBODY W/ REFLEX TO PCRon 09-14-2024 ANTI HCV W/PCR REFLX Non-Reactive Normal Non-Reactive [facility] Comment on above: Result Comment: If r ecent infection suspected, recommend repeat testing (>2 months). Cfbdei-uw-phuwwk ratio is <1.0. Performed By: #### C TALISHA PINR, 06628-7 #### [facility] ([id number]) [address] [place] [address] IONIZED CALCIUMon 09-14-2024 IONIZED CALCIUM - ICAN 3.9 mg/dL Low 4.5-5.3 Pr [facility] Comment on above: Performed By: #### Shira WOODALL PINR, 05299-5 #### [facility] ([id number]) [address] [place] [address] IONIZED CALCIUM - ICAN 3.8 mg/dL Low 4.5-5.3 Pr [facility] Comment on above: Performed By: #### Shira WOODALL, PINR, 34035-2 #### [facility] ([id number]) [address] [place] [address] MAGNESIUMon 09-14-2024 Magnesium [Mass/Vol] 2.8 mg/dL High 1.8-2.6 [facility] Comment on above: Performed By: #### KEVIN Silva BCA, 88178-1 #### [facility] ([id number]) [address] [place] [address] MYELOPEROXIDASE ABon 025 MYELOPEROXIDASE AB <^0.2 Normal <1.0 [facility] Comment on above: Performed By: #### KEVIN Silva BCA, 37751-1 #### [facility] ([id number]) [address] [place] [address] PHOSPHORUSon 09-14-2024 Phosphate [Mass/Vol] 3.1 mg/dL Normal 2.4-4.9 [facility] Comment on above: Performed By: #### KEVIN Silva BCA, 38049-5 #### [facility] ([id number]) [address] [place] [address] POTASSIUMon 09-14-2024 Potassium [Moles/Vol] 3.5 mmol/L Normal 3.5-5.0 [facility] Comment on above: Performed By: #### KEVIN Silva BCA, 92879-7 #### [facility] ([id number]) [address] [place] [address] PROTEIN ELECTROPHORESIS, SER UMon 09-14-2024 Albumin [Mass/Vol] 2.5 g/dL Low 3.4-5.3 [facility] Comment on above: Performed By: #### Shira WOODALL PINDanyn, 60807-6 #### [facility] ([id number]) [address] [place] [address] ALPHA 1 GLOBULIN 0.5 g/dL High 0.1-0.4 [facility] Comment on above: Performed By: #### KEVIN Silva BCA, 26776-1 #### [facility] ([id number]) [address] [place] [address] ALPHA 2 GLOBULIN 0.9 g/dL Normal 0.4-1.1 [facility] Comment on above: Performed By: #### C TALISHA, PINR, 45377-6 #### [facility] ([id number]) [address] [place] [address] BETA GLOBULIN 0.6 g/dL Normal 0.5-1.2 [facility] Comment on above: Performed By: #### C TALISHA, PINR, 75097-0 #### [facility] ([id number]) [address] [place] [address] GAMMA GLOBULIN 0.6 g/dL Normal 0.5-1.6 [facility] Comment on above: Performed By: #### Shira WOODALL, PINR, 51785-6 #### [facility] ([id number]) [address] [place] [address] Protein [Mass/Vol] 5.1 g/dL Low 6.0-8.0 [facility] Comment on above: Performed By: #### Shira WOODALL, PINR, 62522-3 #### [facility] ([id number]) [address] [place] [address] PROTEIN ELECTROPHORESIS INTERP See Pathology Report Normal [facility] Comment on above: Performed By: #### Shira WOODALL, PINR, 38350-7 #### [facility] ([id number]) [address] [place] [address] PROTEINASE 3 AB PR3on 2024 PROTEINASE 3 IGG AB <^0.2 Normal <1.0 [facility] Comment on above: Performed By: #### Shira WOODALL, PINR, 43437-1 #### [facility] ([id number]) [address] [place] [address] RHEUMATOID FACTORon 09-15-19 25 RHEUMATOID FACTOR 14 IU/mL Normal <20 [facility] Comment on above: Performed By: #### C TALISHA PINR, 64491-4 #### [facility] ([id number]) [address] [place] [address] XR ABDOMEN AP 1 VWon 025 XR ABDOMEN AP 1 VW XR ABDOMEN AP 1 VW XR ABDOMEN AP 1 VW: 09/14/2024 11:49 [...] Adriano Jeffrey MD on 09/14/2024 11:53 AM Normal [facility] CBC WITH AUTO DIFFERENTIALon 09-13-2024 Band form neutrophils/100 WBC (Bld) 13 % Normal [facility] Comment on above: Result Comment: This is an appended report. These results have been appended to a previously preliminary verified report. Performed By: #### C KEVIN WOODALL, 08755-4 #### [facility] ([id number]) [address] [place] [address] CELLAVISION ACANTHOCYTES IN BLOOD BY LIGHT MICROSCOPY 1+ Normal [facility] Comment on above: Result Comment: This is an appended report. These results have been appended to a previously preliminary verified report. Performed By: #### C TALISHA PINR, 47087-2 #### [facility] ([id number]) [address] [place] [address] CELLAVISION JASVIR CELLS IN BLOOD BY LIGHT MICROSCOPY 1+ Normal [facility] Comment on above: Result Comment: This is an appended report. These results have been appended to a previously preliminary verified report. Performed By: #### C TALISHA PINR, 06911-1 #### [facility] ([id number]) [address] [place] [address] CELLAVISION DIFFERENTIAL TYPE MANUAL DIFFERENTIAL Normal [facility] Comment on above: Result Comment: This is an appended report. These results have been appended to a previously preliminary verified report. Performed By: #### C TALISHA, PINR, 64717-7 #### [facility] ([id number]) [address] [place] [address] CELLAVISION ELLIPTOCYTES IN BLOOD BY LIGHT MICROSCOPY 1+ Normal [facility] Comment on above: Result Comment: This is an appended report. These results have been appended to a previously preliminary verified report. Performed By: #### Shira WOODALL, PINR, 79952-8 #### [facility] ([id number]) [address] [place] [address] CELLAVISION LYMPHOCYTES ABSOLUTE COUNT (10*3/UL) BY MANUAL COUNT 0.3 10*3/uL Low 1.0-3.5 [facility] Comment on above: Result Comment: This is an appended report. These results have been appended to a previously preliminary verified report. Performed By: #### Shira WOODALL, PINR, 16070-3 #### [facility] ([id number]) [address] [place] [address] CELLAVISION LYMPHOCYTES RELATIVE PERCENT BY MANUAL COUNT 1 % Normal [facility] Comment on above: Result Comment: This is an appended report. These results have been appended to a previously preliminary verified report. Performed By: #### C TALISHA, PINR, 57928-5 #### [facility] ([id number]) [address] [place] [address] CELLAVISION MONOCYTES ABSOLUTE COUNT (10*3/UL) IN BLOOD BY MANUAL COUNT 1.3 10*3/uL High 0.0-0.9 [facility] Comment on above: Result Comment: This is an appended report. These results have been appended to a previously preliminary verified report. Performed By: #### C TALISHA, PINR, 69385-0 #### [facility] ([id number]) [address] [place] [address] CELLAVISION MONOCYTES RELATIVE PERCENT BY MANUAL COUNT 4 % Normal [facility] Comment on above: Result Comment: This is an appended report. These results have been appended to a previously preliminary verified report. Performed By: #### Shira WOODALL, PINR, 26476-4 #### [facility] ([id number]) [address] [place] [address] CELLAVISION NEUTROPHILS ABSOLUTE COUNT BY MANUAL COUNT 29.9 10*3/uL High 1.5-6.6 [facility] Comment on above: Result Comment: This is an appended report. These results have been appended to a previously preliminary verified report. Performed By: #### Shira WOODALL, PINR, 54823-7 #### [facility] ([id number]) [address] [place] [address] CELLAVISION NEUTROPHILS RELATIVE PERCENT BY MANUAL COUNT 82 % Normal [facility] Comment on above: Result Comment: This is an appended report. These results have been appended to a previously preliminary verified report. Performed By: #### Shira WOODALL, PINR, 91441-4 #### [facility] ([id number]) [address] [place] [address] CELLAVISION TOXIC GRANULES IN BLOOD BY LIGHT MICROSCOPY 2+ Normal [facility] Comment on above: Result Comment: This is an appended report. These results have been appended to a previously preliminary verified report. Performed By: #### Shira WOODALL, PINR, 56840-4 #### [facility] ([id number]) [address] [place] [address] CELLAVISION VACUOLATED NEUTROPHILS 1+ Normal [facility] Comment on above: Result Comment: This is an appended report. These results have been appended to a previously preliminary verified report. Performed By: #### C TALISHA PINR, 90117-8 #### [facility] ([id number]) [address] [place] [address] Erythrocyte distribution width (RBC) [Ratio] 14.9 % Normal 11.5-15 [facility] Comment on above: Performed By: #### Shira WOODALL PINR, 60934-5 #### [facility] ([id number]) [address] [place], [place] [address] Hematocrit (Bld) [Volume fraction] 37.0 % Normal 35-47 [facility] Comment on above: Performed By: #### Shira WOODALL PINR, 40975-0 #### [facility] ([id number]) [address] [place], [place] [address] Hemoglobin (Bld) [Mass/Vol] 12.8 g/dL Normal 11.7-15.5 [facility] Comment on above: Performed By: #### Shira WOODALL PINR, 37136-4 #### [facility] ([id number]) [address] [place], [place] [address] MCH (RBC) [Entitic mass] 31.9 pg Normal 27-34 [facility] Comment on above: Performed By: #### Shira WOODALL PINR, 33657-1 #### [facility] ([id number]) [address] [place] [address] MCHC (RBC) [Mass/Vol] 34.5 g/dL Normal 32-36 [facility] Comment on above: Performed By: #### Shira WOODALL PINR, [id number] #### [facility] ([id number]) [address], [address] [place], [place] [address] MCV (RBC) [Entitic vol] 92 fL Normal 80-100 [facility] Comment on above: Performed By: #### C BCA, PINR, [id number] #### [facility] ([id number]) [address], [address] [place] [address] Platelet mean volume (Bld) [Entitic vol] 8.2 fL Normal 7-12 [facility] Comment on above: Performed By: #### C BCA, PINR, [id number] #### [facility] ([id number]) [address], [address] [place] [address] Platelets (Bld) [#/Vol] 342 10*3/uL Normal 150-450 [facility] Comment on above: Performed By: #### C TALISHA, PINR, 46149-3 #### [facility] ([id number]) [address], [address] [place] [address] RBC COUNT 4.01 X10E12/L Normal 3.8-5.2 [facility] Comment on above: Performed By: #### Shira WOODALL, PINR, 02957-1 #### [facility] ([id number]) [address], [address] [place] [address] WBC (Bld) [#/Vol] 31.5 10*3/uL High 4-11 [facility] Comment on above: Performed By: #### C BCA, PINR, 52530-1 #### [facility] ([id number]) [address], [address] [place] [address] COMPREHENSIVE METABOLIC PANE Brock 09-13-2024 Albumin [Mass/Vol] 3.8 g/dL Normal 3.2-5.3 [facility] Comment on above: Performed By: #### C BCA, PINR, 51581-7 #### [facility] ([id number]) [address], [address] [place] [address] ALP [Catalytic activity/Vol] 84 U/L Normal 39-130 [facility] Comment on above: Performed By: #### C BCA, PINR, 10389-1 #### [facility] ([id number]) [address], [address] [place], [place] [address] ALT [Catalytic activity/Vol] 10 U/L Normal <=31 [facility] Comment on above: Performed By: #### C BCA, PINR, 98171-7 #### [facility] ([id number]) [address], [address] [place], [place] [address] Anion gap [Moles/Vol] 15 mmol/L Normal 5-15 [facility] Comment on above: Performed By: #### C BCA, PINR, 41814-1 #### [facility] ([id number]) [address], [address] [place] [address] AST [Catalytic activity/Vol] 15 U/L Normal <=41 [facility] Comment on above: Performed By: #### C BCA, PINR, 86357-3 #### [facility] ([id number]) [address], [address] [place] [address] Bilirubin [Mass/Vol] 0.2 mg/dL Low 0.3-1.2 [facility] Comment on above: Performed By: #### C BCA, PINR, 06829-5 #### [facility] ([id number]) [address], [address] [place] [address] Calcium [Mass/Vol] 7.2 mg/dL Low 8.5-10.5 [facility] Comment on above: Performed By: #### C BCA, PINR, 44860-2 #### [facility] ([id number]) [address], [address] [place] [address] Chloride [Moles/Vol] 103 mmol/L Normal 98-109 [facility] Comment on above: Performed By: #### C BCA, PINR, 90506-0 #### [facility] ([id number]) [address], [address] [place] [address] CO2 [Moles/Vol] 12 mmol/L Low 22-32 [facility] Comment on above: Performed By: #### C SURENDRA WOODALLR, 57929-8 #### [facility] ([id number]) [address], [address] [place] [address] Creatinine [Mass/Vol] 2.30 mg/dL High 0.40-1.00 [facility] Comment on above: Result Comment: METH OD TRACEABLE TO IDMS STANDARD Performed By: #### C KEVIN WOODALL, 56156-4 #### [facility] ([id number]) [address] [place] [address] GFR/1.73 sq M.predicted among non-blacks MDRD (S/P/Bld) [Vol rate/Area] 24 mL/min/{1.73_m2} Low >=60 [facility] Comment on above: Result Comment: Repo rted eGFR is based on the CKD-EPI 2020 equation that does not use a race coefficient. Performed By: #### C KEVIN WOODALL, 51505-7 #### [facility] ([id number]) [address] [place] [address] Glucose [Mass/Vol] 188 mg/dL High 65-99 [facility] Comment on above: Performed By: #### SURENDRA Silva BCAR, 46523-4 #### [facility] ([id number]) [address], [address] [place] [address] Potassium [Moles/Vol] 4.3 mmol/L Normal 3.5-5.0 [facility] Comment on above: Performed By: #### Shira WOODALL PINR, 12150-6 #### [facility] ([id number]) [address], [address] [place] [address] Protein [Mass/Vol] 7.1 g/dL Normal 6.0-8.0 [facility] Comment on above: Performed By: #### C BCA, PINR, 17504-0 #### [facility] ([id number]) [address], [address] [place] [address] Sodium [Moles/Vol] 130 mmol/L Low 134-146 [facility] Comment on above: Performed By: #### C TALISHA, PINR, 87763-8 #### [facility] ([id number]) [address], [address] [place] [address] Urea nitrogen [Mass/Vol] 105 mg/dL High 5-27 [facility] Comment on above: Performed By: #### C TALISHA, PINR, 10245-7 #### [facility] ([id number]) [address], [address] [place] [address] DRUG SCREEN, URINEon 025 AMPHETAMINE/METHAMP Negative Normal Negative [facility] Comment on above: Result Comment: AMPH /METH screening cut off = 1000 ng/mL Performed By: #### C TALISHA, PINR, 52285-8 #### [facility] ([id number]) [address], [address] [place] [address] BARBITURATES Negative Normal Negative [facility] Comment on above: Result Comment: Brittni iturates screening cut off value = 200 ng/mL Performed By: #### C TALISHA, PINR, 50866-7 #### [facility] ([id number]) [address], [address] [place] [address] BENZODIAZEPINES Negative Normal Negative [facility] Comment on above: Result Comment: Hernán odiazepines screening cut off value = 200 ng/mL Performed By: #### C TALISHA, PINR, 78624-0 #### [facility] ([id number]) [address], [address] [place] [address] CANNABINOIDS Negative Normal Negative [facility] Comment on above: Result Comment: Misha abinoids/THC screening cut off value = 50 ng/mL Performed By: #### C BCA, PINR, 05252-8 #### [facility] ([id number]) [address], [address] [place] [address] COCAINE METABOLITE Negative Normal Negative [facility] Comment on above: Result Comment: Coca ine screening cut off value = 300 ng/mL Performed By: #### C BCA, PINR, 00446-9 #### [facility] ([id number]) [address], [address] [place] [address] ECSTASY Negative Normal Negative [facility] Comment on above: Result Comment: Ecst asy screening cut off value = 500 ng/mL Performed By: #### C BCA, PINR, 49333-9 #### [facility] ([id number]) [address], [address] [place] [address] METHADONE Negative Normal Negative [facility] Comment on above: Result Comment: Meth adone screening cut off value = 300 ng/mL. Performed By: #### C BCA, PINR, 70247-1 #### [facility] ([id number]) [address], [address] [place] [address] OPIATES Negative Normal Negative [facility] Comment on above: Result Comment: Opia radha screening cut off value = 300 ng/mL This test is used for the detection of codeine, hydrocodone (>1000 ng/mL), morphine and hydromorphone (>900 ng/mL) in urine. Performed By: #### C BCA, PINR, 83123-4 #### [facility] ([id number]) [address], [address] [place] [address] OXYCODONE Negative Normal Negative [facility] Comment on above: Result Comment: Oxyc odone screening cut off value = 300 ng/mL This test is used for the detection of oxycodone and oxymorphone in urine. Performed By: #### C BCA, PINR, 76996-4 #### [facility] ([id number]) [address], [address] [place] [address] PHENCYCLIDINE Negative Normal Negative [facility] Comment on above: Result Comment: Phen cyclidine screening cut off value = 25 ng/mL Performed By: #### C KEVIN WOODALL, 26354-7 #### [facility] ([id number]) [address], [address] [place] [address] FL SWALLOW MOTILITY FUNCTION on 09-13-2024 FL SWALLOW MOTILITY FUNCTION FL SWALLOW MOTILITY FUNCTION STUDY: Video fluoroscopic swallow study CLINICAL HISTORY: [...] Rory Harris MD on 09/13/2024 12:24 PM Normal [facility] IONIZED CALCIUMon 09-13-2024 IONIZED CALCIUM - ICAN 3.9 mg/dL Low 4.5-5.3 Pr [facility] Comment on above: Performed By: #### C KEVIN WOODALL, 68872-5 #### [facility] ([id number]) [address], [address] [place] [address] IONIZED CALCIUM - ICAN 3.9 mg/dL Low 4.5-5.3 Pr [facility] Comment on above: Performed By: #### C KEVIN WOODALL, 61472-0 #### [facility] ([id number]) [address], [address] [place] [address] MAGNESIUMon 09-13-2024 Magnesium [Mass/Vol] 3.1 mg/dL High 1.8-2.6 [facility] Comment on above: Performed By: #### C BCA, PINR, 00728-6 #### [facility] ([id number]) [address], [address] [place] [address] MICROALBUMIN / CREATININE UR INE RATIOon 09-13-2024 Albumin DL <= 20 mg/L (U) [Mass/Vol] 2.3 mg/dL High 0.0-1.9 [facility] Comment on above: Performed By: #### C TALISHA, PINR, 09036-5 #### [facility] ([id number]) [address], [address] [place] [address] MALB/CREAT RATIO 35.1 mg/g High 0.0-30.0 [facility] Comment on above: Performed By: #### C TALISHA PINR, 71159-4 #### [facility] ([id number]) [address], [address] [place] [address] URINE CREATININE,RDM 65.47 mg/dL Normal [facility] Comment on above: Performed By: #### Shira WOODALL, PINR, 21377-7 #### [facility] ([id number]) [address], [address] [place] [address] OSMOLALITY, URINEon 09-14-19 25 URINE OSMOLALITY 389 mOsm/kg H2 Normal 300-1300 [facility] Comment on above: Performed By: #### C BCA, PINR, 07551-2 #### [facility] ([id number]) [address], [address] [place] [address] PROCALCITONINon 09-13-2024 PROCALCITONIN 3.40 ng/mL High <0.05 [facility] Comment on above: Order Comment: <0.50 ng/mL - Low risk of severe sepsis and/or septic shock.<2.00 ng/mL - Recommend retesting within 6-24 hours.>2.00 ng/mL - High risk of sepsis and/or septic shock. Performed By: #### C BCA, PINR, 69307-6 #### [facility] ([id number]) [address], [address] [place] [address] SODIUMon 09-13-2024 Sodium [Moles/Vol] 133 mmol/L Low 134-146 [facility] Comment on above: Performed By: #### C BCA, PINR, 50012-5 #### [facility] ([id number]) [address], [address] [place] [address] Sodium [Moles/Vol] 133 mmol/L Low 134-146 [facility] Comment on above: Performed By: #### C BCA, PINR, 24611-5 #### [facility] ([id number]) [address], [address] [place] [address] Sodium [Moles/Vol] 132 mmol/L Low 134-146 [facility] Comment on above: Performed By: #### C BCA, PINR, 06266-9 #### [facility] ([id number]) [address], [address] [place] [address] SODIUM, URINE, RANDOMon 08-0 Sodium (U) [Moles/Vol] 22 mmol/L Normal Pr [facility] Comment on above: Performed By: #### C BCA, PINR, 19673-7 #### [facility] ([id number]) [address], [address] [place] [address] URINE CREATININE,RANDOMon URINE CREATININE,RDM 51.96 mg/dL Normal [facility] Comment on above: Performed By: #### C BCA, PINR, 58006-3 #### [facility] ([id number]) [address], [address] [place] [address] BASIC METABOLIC PANELon 07-3 Anion gap [Moles/Vol] 15 mmol/L Normal 5-15 [facility] Comment on above: Performed By: #### C BCA, PINR, 96059-1 #### [facility] ([id number]) [address], [address] [place] [address] Calcium [Mass/Vol] 7.5 mg/dL Low 8.5-10.5 [facility] Comment on above: Performed By: #### C BCA, PINR, 29842-0 #### [facility] ([id number]) [address] [place] [address] Chloride [Moles/Vol] 102 mmol/L Normal 98-109 [facility] Comment on above: Performed By: #### C BCA, PINR, 31221-3 #### [facility] ([id number]) [address] [place] [address] CO2 [Moles/Vol] 10 mmol/L Low 22-32 [facility] Comment on above: Performed By: #### C BCA, PINR, 42465-7 #### [facility] ([id number]) [address] [place] [address] Creatinine [Mass/Vol] 2.69 mg/dL High 0.40-1.00 [facility] Comment on above: Result Comment: METH OD TRACEABLE TO IDMS STANDARD Performed By: #### C BCA, PINR, 80043-0 #### [facility] ([id number]) [address] [place] [address] GFR/1.73 sq M.predicted among non-blacks MDRD (S/P/Bld) [Vol rate/Area] 20 mL/min/{1.73_m2} Low >=60 [facility] Comment on above: Result Comment: Repo rted eGFR is based on the CKD-EPI 2020 equation that does not use a race coefficient. Performed By: #### C BCA, PINR, 22226-6 #### [facility] ([id number]) [address] [place] [address] Glucose [Mass/Vol] 127 mg/dL High 65-99 [facility] Comment on above: Performed By: #### C BCA, PINR, 55295-5 #### [facility] ([id number]) [address] [place] [address] Potassium [Moles/Vol] 4.9 mmol/L Normal 3.5-5.0 [facility] Comment on above: Performed By: #### C BCA, PINR, 95917-7 #### [facility] ([id number]) [address] [place] [address] Sodium [Moles/Vol] 127 mmol/L Low 134-146 [facility] Comment on above: Performed By: #### C BCA, PINR, 97362-1 #### [facility] ([id number]) [address] [place] [address] Urea nitrogen [Mass/Vol] 107 mg/dL High 5-27 [facility] Comment on above: Performed By: #### C BCA, PINR, 64832-7 #### [facility] ([id number]) [address] [place] [address] BLOOD CULTUREon 09-12-2024 Bacteria identified Cx Nom (Bld) CULTURE RESULTS NO GROWTH 5 DAYS Normal [facility] Comment on above: Order Comment: *SIRS Criteria: (must display 2 without other explanation)-Temperature < 36 or >38-Pulse >90-Resp rate >20-WBC less than 4K or greater than 12KRepeat blood cultures not needed:-To document that a blood culture is a contaminant when 1 of 2 bottles is positive for a common contaminant (already listed in Epic with the culture result)-To document clearance of gram negative bacteremia in patients with suspected urinary source who are improvingSuboptimal volume of blood collected, Results may be affected. Performed By: #### C BCA, CMP, FEPR, 71656-3, TSHR, 2276-4, HA1C, 2284-8, 2131-10 #### [facility] ([id number]) [address] [place] [address] #### 50034-6 #### [facility] ([id number]) [address] [place] [address] Order Comment: *SIRS Criteria: (must display 2 without other explanation)-Temperature < 36 or >38-Pulse >90-Resp rate >20-WBC less than 4K or greater than 12KRepeat blood cultures not needed:-To document that a blood culture is a contaminant when 1 of 2 bottles is positive for a common contaminant (already listed in Epic with the culture result)-To document clearance of gram negative bacteremia in patients with suspected urinary source who are improvingSuboptimal volume of blood collected, Results may be affected.Only aerobic bottle received, suboptimal volume of blood collected, results may be affected. BLOOD GAS, ARTERIALon 2024 BASE,DEFICIT -22.0 mmol/L Low 0.0-2.[address] [facility] Comment on above: Performed By: #### C BCA, CMP, FEPR, 36696-4, TSHR, 6-4, HA1C, 2283-09, 2131-10 #### [facility] ([id number]) [address] [place] [address] #### 62978-8 #### [facility] ([id number]) [address] [place] [address] HCO3 (Bld) [Moles/Vol] 6.1 mmol/L Low 22.0-26.0 Pr [facility] Comment on above: Performed By: #### C BCA, CMP, FEPR, 19165-0, TSHR, 2276-4, HA1C, 2283-09, 2131-10 #### [facility] ([id number]) [address] [place] [address] #### 50304-1 #### [facility] ([id number]) [address] [place] [address] INSP. O2 CONC. 21 % Normal [facility] Comment on above: Performed By: #### C BCA, CMP, FEPR, 11596-8, TSHR, 2276-4, HA1C, 2283-09, 2131-10 #### [facility] ([id number]) [address] [place] [address] #### 62449-2 #### [facility] ([id number]) [address] [place] [address] Oxygen saturation in Blood 97.0 % Normal >90.[address] [facility] Comment on above: Performed By: #### C BCA, CMP, FEPR, 75682-0, TSHR, 2276-4, HA1C, 2283-09, 2131-10 #### [facility] ([id number]) [address] [place] [address] #### 69909-7 #### [facility] ([id number]) [address] [place] [address] PCO2 ARTERIAL 20.2 mmHg Critically low 35.0-45.0 [facility] Comment on above: Performed By: #### C BCA, CMP, FEPR, 44775-0, TSHR, 2276-4, HA1C, 2283-09, 2131-10 #### [facility] ([id number]) [address] [place] [address] #### 41087-4 #### [facility] ([id number]) [address] [place] [address] PH ARTERIAL 7.089 Critically low 7.350-7.450 [facility] Comment on above: Performed By: #### C BCA, CMP, FEPR, 98043-4, TSHR, 2276-4, HA1C, 2283-09, 2131-10 #### [facility] ([id number]) [address] [place] [address] #### 90822-8 #### [facility] ([id number]) [address] [place] [address] PO2 ARTERIAL 121 mmHg High 80-[address] [facility] Comment on above: Performed By: #### C BCA, CMP, FEPR, 62800-3, TSHR, 2276-4, HA1C, 2284-8, 9 #### [facility] ([id number]) [address], [address] [place] [address] #### 06041-7 #### [facility] ([id number]) [address] [place] [address] POC PRACHI'S TEST N/A Normal [facility] Comment on above: Performed By: #### C BCA, CMP, FEPR, 09692-9, TSHR, 2276-4, HA1C, 4-8, 2131-10 #### [facility] ([id number]) [address], [address] [place] [address] #### 07938-9 #### [facility] ([id number]) [address] [place] [address] SAMPLE SITE R Rad Normal [facility] Comment on above: Performed By: #### C BCA, CMP, FEPR, 06353-0, TSHR, 2276-4, HA1C, 2284-8, 9 #### [facility] ([id number]) [address], [address] [place] [address] #### 07253-0 #### [facility] ([id number]) [address] [place] [address] SAMPLE TYPE ARTERIAL Normal [facility] Comment on above: Performed By: #### C BCA, CMP, FEPR, 76117-4, TSHR, 2276-4, HA1C, 2284-8, 2131-10 #### [facility] ([id number]) [address] [place] [address] #### 90823-1 #### [facility] ([id number]) [address] [place] [address], [place] [address] SOURCE OF OXYGEN Room Air Normal [facility] Comment on above: Performed By: #### C BCA, CMP, FEPR, 69155-3, TSHR, 2276-4, HA1C, 2284-8, 2131-10 #### [facility] ([id number]) [address] [place] [address] #### 55243-8 #### [facility] ([id number]) [address] [place] [address], [place] [address] BLOOD GAS, VENOUSon 09-13-19 25 BASE,DEFICIT -19.0 mmol/L Low 0.0-2.0 [facility] Comment on above: Performed By: #### C TALISHA PINR, 41488-6 #### [facility] ([id number]) [address] [place] [address] HCO3 (Bld) [Moles/Vol] 7.2 mmol/L Low 20.0-24.0 Pr [facility] Comment on above: Performed By: #### Shira WOODALL, PINR, 47357-9 #### [facility] ([id number]) [address] [place] [address] INSP. O2 CONC. 21 % Normal [facility] Comment on above: Performed By: #### Shira WOODALL, PINR, 05284-8 #### [facility] ([id number]) [address] [place] [address] Oxygen saturation in Blood 85.0 % Normal [facility] Comment on above: Performed By: #### C TALISHA, PINR, 36456-7 #### [facility] ([id number]) [address] [place] [address] PCO2 VENOUS 20.1 mmHg Low 35.0-50.0 [facility] Comment on above: Performed By: #### C TALISHA, PINR, 57321-0 #### [facility] ([id number]) [address] [place] [address] PH VENOUS 7.163 Low 7.320-7.420 [facility] Comment on above: Performed By: #### C TALISHA, PINR, 53644-2 #### [facility] ([id number]) [address] [place] [address] PO2 VENOUS 62 mmHg High 30-50 [facility] Comment on above: Performed By: #### C TALISHA PINR, 42496-0 #### [facility] ([id number]) [address] [place] [address] POC PRACHI'S TEST N/A Normal [facility] Comment on above: Performed By: #### C TALISHA, PINR, [id number] #### [facility] ([id number]) [address], [address] [place] [address] SAMPLE SITE N/A Normal [facility] Comment on above: Performed By: #### Shira WOODALL, PINR, [id number] #### [facility] ([id number]) [address], [address] [place] [address] SAMPLE TYPE VENOUS Normal [facility] Comment on above: Performed By: #### C TALISHA, PINR, [id number] #### [facility] ([id number]) [address], [address] [place] [address] SOURCE OF OXYGEN Room Air Normal [facility] Comment on above: Performed By: #### C TALISHA PINR, [id number] #### [facility] ([id number]) [address], [address] [place] [address] BLOOD GAS, VENOUS VBG BLOOD GAS, VENOUS Cancelled Normal [facility] CBC WITH AUTO DIFFERENTIALon 09-12-2024 Band form neutrophils/100 WBC (Bld) 5 % Normal [facility] Comment on above: Result Comment: This is an appended report. These results have been appended to a previously preliminary verified report. Performed By: #### C BCA, CMP, FEPR, 81205-7, TSHR, 2276-4, HA1C, 2284-8, 2131-10 #### [facility] [facility] ([id number]) [address], [address] [place] [address] #### 52693-2 #### [facility] ([id number]) [address] [place] [address] 91601 CELLAVISION JASVIR CELLS IN BLOOD BY LIGHT MICROSCOPY 1+ Normal [facility] Comment on above: Result Comment: This is an appended report. These results have been appended to a previously preliminary verified report. Performed By: #### C BCA, CMP, FEPR, 68878-8, TSHR, 2276-4, HA1C, 2284-8, 2131-10 #### [facility] ([id number]) [address], [address] [place] [address] #### 07641-2 #### [facility] ([id number]) [address] [place] [address] 37251 CELLAVISION DIFFERENTIAL TYPE MANUAL DIFFERENTIAL Normal [facility] Comment on above: Result Comment: This is an appended report. These results have been appended to a previously preliminary verified report. Performed By: #### C BCA, CMP, FEPR, 18967-6, TSHR, 2276-4, HA1C, 2284-8, 9 #### [facility] ([id number]) [address] [facility], [address] [place] [address] #### 58737-7 #### [facility] ([id number]) [address] [place] [address] 27666 CELLAVISION ELLIPTOCYTES IN BLOOD BY LIGHT MICROSCOPY 1+ Normal [facility] Comment on above: Result Comment: This is an appended report. These results have been appended to a previously preliminary verified report. Performed By: #### C BCA, CMP, FEPR, 00287-2, TSHR, 2276-4, HA1C, 2284-8, 2131-10 #### [facility] ([id number]) [address], [address] [place] [address] #### 21720-4 #### [facility] ([id number]) [address] [place] [address] 82411 CELLAVISION LYMPHOCYTES ABSOLUTE COUNT (10*3/UL) BY MANUAL COUNT 1.0 10*3/uL Normal 1.0-3.[address] [facility] Comment on above: Result Comment: This is an appended report. These results have been appended to a previously preliminary verified report. Performed By: #### C BCA, CMP, FEPR, 51589-4, TSHR, 2276-4, HA1C, 2283-8, 2131-10 #### [facility] ([id number]) [address], [address] [place] [address] #### 38398-6 #### [facility] ([id number]) [address] [place] [address] 75483 CELLAVISION LYMPHOCYTES RELATIVE PERCENT BY MANUAL COUNT 3 % Normal [facility] Comment on above: Result Comment: This is an appended report. These results have been appended to a previously preliminary verified report. Performed By: #### C BCA, CMP, FEPR, 87563-0, TSHR, 2276-4, HA1C, 2284-8, 2131-10 #### [facility] ([id number]) [address] [place] [address], [address] [place] [address] #### 13294-8 #### [facility] ([id number]) [address] [place] [address] 40110 CELLAVISION MONOCYTES ABSOLUTE COUNT (10*3/UL) IN BLOOD BY MANUAL COUNT 0.7 10*3/uL Normal 0.0-0.[address] [facility] Comment on above: Result Comment: This is an appended report. These results have been appended to a previously preliminary verified report. Performed By: #### C BCA, CMP, FEPR, 87365-6, TSHR, 2276-4, HA1C, 2284-8, 9 #### [facility] ([id number]) [address] [place] [address], [address] [place] [address] #### 74359-7 #### [facility] ([id number]) [address] [place] [address] 79855 CELLAVISION MONOCYTES RELATIVE PERCENT BY MANUAL COUNT 2 % Normal [facility] Comment on above: Result Comment: This is an appended report. These results have been appended to a previously preliminary verified report. Performed By: #### C BCA, CMP, FEPR, 82506-8, TSHR, 2276-4, HA1C, 2284-8, 9 #### [facility] ([id number]) [address] [place] [address], [address] [place] [address] #### 69296-1 #### [facility] ([id number]) [address] [place] [address] 22485 CELLAVISION NEUTROPHILS ABSOLUTE COUNT BY MANUAL COUNT 31.5 10*3/uL High 1.5-6.[address] [facility] Comment on above: Result Comment: This is an appended report. These results have been appended to a previously preliminary verified report. Performed By: #### C BCA, CMP, FEPR, 66872-8, TSHR, 2276-4, HA1C, 2284-8, 2131-9 #### [facility] ([id number]) [address], [address] [place] [address] #### 23533-0 #### [facility] ([id number]) [address] [place] [address] 73973 CELLAVISION NEUTROPHILS RELATIVE PERCENT BY MANUAL COUNT 90 % Normal [facility] Comment on above: Result Comment: This is an appended report. These results have been appended to a previously preliminary verified report. Performed By: #### C BCA, CMP, FEPR, 74425-8, TSHR, 2276-4, HA1C, 2284-8, 2131-10 #### [facility] ([id number]) [address], [address] [place] [address] #### 52781-1 #### [facility] ([id number]) [address] [place] [address] 53558 CELLAVISION RBC FRAGMENTS 1+ Normal [facility] Comment on above: Result Comment: This is an appended report. These results have been appended to a previously preliminary verified report. Performed By: #### C BCA, CMP, FEPR, 69951-0, TSHR, 2276-4, HA1C, 2284-8, 2131-10 #### [facility] ([id number]) [address], [address] [place] [address] #### 68256-4 #### [facility] ([id number]) [address] [place] [address] 40675 Erythrocyte distribution width (RBC) [Ratio] 14.6 % Normal 11.5-[address] [facility] Comment on above: Performed By: #### C BCA, CMP, FEPR, 39004-1, TSHR, 2276-4, HA1C, 2284-8, 2131-9 #### [facility] ([id number]) [address] [facility], [address] [place] [address] #### 48139-3 #### [facility] ([id number]) [address] [place] [address] 48311 Hematocrit (Bld) [Volume fraction] 32.6 % Low 35-[address] [facility] Comment on above: Performed By: #### C BCA, CMP, FEPR, 62038-2, TSHR, 2276-4, HA1C, 2284-8, 2131-10 #### [facility] ([id number]) [address] [facility], [address] [place] [address] #### 24158-4 #### [facility] ([id number]) [address] [place] [address] 41170 Hemoglobin (Bld) [Mass/Vol] 11.0 g/dL Low 11.7-15.[address] [facility] Comment on above: Performed By: #### C BCA, CMP, FEPR, 33578-4, TSHR, 2276-4, HA1C, 2283-8, 2131-10 #### [facility] ([id number]) [address] [facility], [address] [place] [address] #### 92066-6 #### [facility] ([id number]) [address] [place] [address] 43625 MCH (RBC) [Entitic mass] 31.0 pg Normal 27-[address] [facility] Comment on above: Performed By: #### C BCA, CMP, FEPR, 47446-4, TSHR, 2276-4, HA1C, 2283-8, 2131-10 #### [facility] ([id number]) [address] [facility], [address] [place] [address] #### 11467-0 #### [facility] ([id number]) [address] [place] [address] 33112 MCHC (RBC) [Mass/Vol] 33.7 g/dL Normal 32-36 [facility] Comment on above: Performed By: #### C BCA, CMP, FEPR, 49043-1, TSHR, 2276-4, HA1C, 2283-, 2131-10 #### [facility] ([id number]) [address], [address] [place] [address] #### 88307-5 #### [facility] ([id number]) [address] [place] [address] MCV (RBC) [Entitic vol] 92 fL Normal 80-100 [facility] Comment on above: Performed By: #### C BCA, CMP, FEPR, 71584-0, TSHR, 2276-4, HA1C, 2283-09, 2131-10 #### [facility] ([id number]) [address], [address] [place] [address] #### 32602-3 #### [facility] ([id number]) [address] [place] [address] 99321 Platelet mean volume (Bld) [Entitic vol] 8.3 fL Normal 7-[address] [facility] Comment on above: Performed By: #### C BCA, CMP, FEPR, 02320-7, TSHR, 2276-4, HA1C, 2283-09, 2131-10 #### [facility] ([id number]) [address], [address] [place] [address] #### 68163-6 #### [facility] ([id number]) [address] [place] [address] 80861 Platelets (Bld) [#/Vol] 422 10*3/uL Normal 150-[address] [facility] Comment on above: Performed By: #### C BCA, CMP, FEPR, 74145-0, TSHR, 2276-4, HA1C, 2283-, 2131-10 #### [facility] ([id number]) [address] [facility], [address] [place] [address] #### 81969-1 #### [facility] ([id number]) [address] [place] [address] 73959 RBC COUNT 3.55 X10E12/L Low 3.8-5.[address] [facility] Comment on above: Performed By: #### C BCA, CMP, FEPR, 14530-7, TSHR, 2276-4, HA1C, 2283-8, 2131-10 #### [facility] ([id number]) [address] [facility], [address] [place] [address] #### 38246-9 #### [facility] ([id number]) [address] [place] [address] 78366 WBC (Bld) [#/Vol] 33.2 10*3/uL High 4-11 [facility] Comment on above: Performed By: #### C BCA, CMP, FEPR, 31165-1, TSHR, 2276-4, HA1C, 2283-, 2131-10 #### [facility] ([id number]) [address] [facility], [address] [place] [address] #### 38579-5 #### [facility] ([id number]) [address] [place] [address] 88251 CK TOTALon 09-12-2024 CPK 34 U/L Normal 24-170 [facility] Comment on above: Performed By: #### C BCA, PINR, 74601-5 #### [facility] ([id number]) [address], [address] [place] [address] COMPREHENSIVE METABOLIC PANE Brock 09-12-2024 Albumin [Mass/Vol] 3.1 g/dL Low 3.2-5.3 [facility] Comment on above: Performed By: #### C BCA, CMP, FEPR, 85479-7, TSHR, 2276-4, HA1C, 2283-8, 2131-10 #### [facility] ([id number]) [address], [address] [place] [address] #### 09543-0 #### [facility] ([id number]) [address] [place] [address] ALP [Catalytic activity/Vol] 77 U/L Normal 39-[address] [facility] Comment on above: Performed By: #### C BCA, CMP, FEPR, 37160-6, TSHR, 2276-4, HA1C, 2283-, 2131-10 #### [facility] ([id number]) [address], [address] [place] [address] #### 56282-9 #### [facility] ([id number]) [address] [place] [address] 45411 ALT [Catalytic activity/Vol] 16 U/L Normal <=[address] [facility] Comment on above: Performed By: #### C BCA, CMP, FEPR, 35332-2, TSHR, 2276-4, HA1C, 2283-09, 2131-10 #### [facility] ([id number]) [address], [address] [place] [address] #### 75097-4 #### [facility] ([id number]) [address] [place] [address] 15813 Anion gap [Moles/Vol] 17 mmol/L High 5-15 [facility] Comment on above: Performed By: #### C BCA, CMP, FEPR, 80377-5, TSHR, 2276-4, HA1C, 2283-, 2131-10 #### [facility] ([id number]) [address], [address] [place] [address] #### 76077-1 #### [facility] ([id number]) [address] [place] [address] 69537 AST [Catalytic activity/Vol] 16 U/L Normal <=[address] [facility] Comment on above: Performed By: #### C BCA, CMP, FEPR, 04495-7, TSHR, 2276-4, HA1C, 2283-8, 2131-10 #### [facility] ([id number]) [address] [facility], [address] [place] [address] #### 31297-1 #### [facility] ([id number]) [address] [place] [address] 36999 Bilirubin [Mass/Vol] 0.3 mg/dL Normal 0.3-1.2 [facility] Comment on above: Performed By: #### C BCA, CMP, FEPR, 15642-6, TSHR, 2276-4, HA1C, 2283-09, 2131-10 #### [facility] ([id number]) [address] [facility], [address] [place] [address] #### 59881-3 #### [facility] ([id number]) [address] [place] [address] 07869 Calcium [Mass/Vol] 7.1 mg/dL Low 8.5-10.5 [facility] Comment on above: Performed By: #### C BCA, CMP, FEPR, 90213-6, TSHR, 2276-4, HA1C, 2283-09, 2131-10 #### [facility] ([id number]) [address] [facility], [address] [place] [address] #### 21291-5 #### [facility] ([id number]) [address] [place] [address] 89954 Chloride [Moles/Vol] 97 mmol/L Low 98-109 [facility] Comment on above: Performed By: #### C BCA, CMP, FEPR, 32673-2, TSHR, 2276-4, HA1C, 2284-8, 9 #### [facility] ([id number]) [address], [address] [place] [address] #### 61747-5 #### [facility] ([id number]) [address] [place] [address] CO2 [Moles/Vol] 8 mmol/L Critically low 22-32 [facility] Comment on above: Performed By: #### C BCA, CMP, FEPR, 57586-9, TSHR, 2276-4, HA1C, 2284-8, 2131-10 #### [facility] ([id number]) [address], [address] [address] #### 58765-2 #### [facility] ([id number]) [address] [place] [address] 49786 Creatinine [Mass/Vol] 3.51 mg/dL High 0.40-1.00 [facility] Comment on above: Result Comment: METH OD TRACEABLE TO IDMS STANDARD Performed By: #### C BCA, CMP, FEPR, 50152-1, TSHR, 2276-4, HA1C, 4-8, 9 #### [facility] ([id number]) [address], [address] [place] [address] #### 95058-3 #### [facility] ([id number]) [address] [place] [address] 18699 GFR/1.73 sq M.predicted among non-blacks MDRD (S/P/Bld) [Vol rate/Area] 14 mL/min/{1.73_m2} Low >=[address] [facility] Comment on above: Result Comment: eGFR not reported due to non-numeric value for Creatinine. Reported eGFR is based on the CKD-EPI 2020 equation that does not use a race coefficient. Performed By: #### C BCA, CMP, FEPR, 37702-0, TSHR, 2276-4, HA1C, 2284-8, 2131-10 #### [facility] ([id number]) [address], [address] [place] [address] #### 19387-9 #### [facility] ([id number]) [address] [place] [address] 68861 Glucose [Mass/Vol] 185 mg/dL High 65-99 [facility] Comment on above: Performed By: #### C BCA, CMP, FEPR, 35946-7, TSHR, 2276-4, HA1C, 2283-, 2131-10 #### [facility] ([id number]) [address], [address] [place] [address] #### 56586-6 #### [facility] ([id number]) [address] [place] [address] 52754 Potassium [Moles/Vol] 5.3 mmol/L High 3.5-5.0 [facility] Comment on above: Performed By: #### C BCA, CMP, FEPR, 61089-7, TSHR, 2276-4, HA1C, 2283-, 2131-10 #### [facility] ([id number]) [address], [address] [place] [address] #### 05887-0 #### [facility] ([id number]) [address] [place] [address] 05628 Protein [Mass/Vol] 5.9 g/dL Low 6.0-8.0 [facility] Comment on above: Performed By: #### C BCA, CMP, FEPR, 21437-6, TSHR, 2276-4, HA1C, 2283-8, 2131-10 #### [facility] ([id number]) [address], [address] [place] [address] #### 59371-0 #### [facility] ([id number]) [address] [place] [address] 93180 Sodium [Moles/Vol] 122 mmol/L Low 134-146 [facility] Comment on above: Performed By: #### C BCA, CMP, FEPR, 15521-6, TSHR, 2276-4, HA1C, 2284-8, 2132-9 #### [facility] ([id number]) [address] [facility], [address] [place] [address] #### 05345-4 #### [facility] ([id number]) [address] [place] [address] 60749 Urea nitrogen [Mass/Vol] 118 mg/dL High 5-[address] [facility] Comment on above: Performed By: #### C BCA, CMP, FEPR, 26413-2, TSHR, 2276-4, HA1C, 2284-8, 2131-9 #### [facility] ([id number]) [address] [facility], [address] [place] [address] #### 75236-5 #### [facility] ([id number]) [address] [place] [address] BRAIN WO CONTon CT BRAIN WO CONT CT BRAIN WO CONT CT BRAIN WO CONT CLINICAL INFORMATION: ams [...] Mao Kauffman MD on 09/12/2024 3:47 PM Normal [facility] CT CTA ABD AND PELVISon 08-15 CT CTA ABD AND PELVIS CT CTA ABD AND PELVIS CT CTA ABD AND PELVIS CLINICAL INFORMATION: [...] Mao Kauffman MD on 09/12/2024 3:57 PM Normal [facility] CT CTA ABD AORTA W RUNOFFon 09-12-2024 CT CTA ABD AORTA W RUNOFF CT CTA ABD AORTA W RUNOFF EXAM: CT CTA ABD AORTA W RUNOFF [...] Paras Nixon MD on 09/12/2024 4:52 PM Normal [facility] CT CTA CHESTon 09-12-[address] CTA CHEST HISTORY: dissection, transient alteration [...] No significant pericardial effusion. Moderate coronary artery calcification/stenti ng. Nonaneurysmal thoracic aorta with mild atherosclerotic calcification. [...] Mahnaz Eric DO on 09/12/2024 3:49 PM I, Markos Bañuelos MD have personally reviewed the image(s) and agree with and/or edited the report Finalized by Markos Bañuelos MD on 09/12/2024 4:03 PM Normal [facility] LACTATEon 09-12-2024 Lactate [Moles/Vol] 1.0 mmol/L Normal 0.4-2.0 [facility] Comment on above: Performed By: #### C BCA, CMP, FEPR, 71978-1, TSHR, 2276-4, HA1C, 2284-8, 2132-9 #### [facility] ([id number]) [address] [facility], [address] [place] [address] #### 00851-9 #### [facility] ([id number]) [address] [facility] [place] [address] LACTATE W/ REFLEXon 09-13-19 25 LACTATE W/REFLEX 1.4 mmol/L Normal 0.4-2.0 [facility] Comment on above: Order Comment: Resul t did not trigger repeat Lactate,re-order if needed. Performed By: #### C TALISHA, PINR, 76460-1 #### [facility] ([id number]) [address], [address] [place] [address] LACTATE W/REFLEX 2.3 mmol/L High 0.4-2.0 [facility] Comment on above: Performed By: #### C BCA, CMP, FEPR, 79833-9, TSHR, 2276-4, HA1C, 4-8, 2131-10 #### [facility] ([id number]) [address], [address] [place] [address] #### 03803-8 #### [facility] ([id number]) [address] [place] [address] MAGNESIUMon 09-12-2024 Magnesium [Mass/Vol] 3.1 mg/dL High 1.8-2.6 [facility] Comment on above: Performed By: #### C BCA, CMP, FEPR, 91589-0, TSHR, 2276-4, HA1C, 2283-8, 2131-10 #### [facility] ([id number]) [address], [address] [place] [address] #### 63427-9 #### [facility] ([id number]) [address] [place] [address]956 MYOGLOBIN, SERUMon SERUM MYOGLOBIN 68.8 ng/mL High 14.3-65.8 [facility] Comment on above: Performed By: #### C TALISHA, PINR, 78125-6 #### [facility] ([id number]) [address], [address] [place] [address] OSMOLALITYon 09-12-2024 OSMOLALITY 319 mOsm/kg H2 High 280-300 [facility] Comment on above: Performed By: #### C TALISHA, PINR, 05239-4 #### [facility] ([id number]) [address], [address] [place] [address] POCT NURSING URINE MACROSCOP IC UAon 09-12-2024 BILIRUBIN KYLIE Negative Normal Negative [facility] Comment on above: Performed By: #### C BCA, CMP, FEPR, 37236-3, TSHR, 2276-4, HA1C, 2283-09, 2131-10 #### [facility] ([id number]) [address] [place] [address] #### 68652-2 #### [facility] ([id number]) [address] [place] [address] 47138 BLOOD/HGB KYLIE Moderate Abnormal Negative [facility] Comment on above: Performed By: #### C BCA, CMP, FEPR, 05532-9, TSHR, 6-4, HA1C, 2283-09, 2131-10 #### [facility] ([id number]) [address], [address] [place] [address] #### 45280-1 #### [facility] ([id number]) [address] [place] [address] 63223 GLUCOSE KYLIE 100 mg/dL Abnormal Negative [facility] Comment on above: Performed By: #### C BCA, CMP, FEPR, 98671-7, TSHR, 6-4, HA1C, 2283-09, 2131-10 #### [facility] ([id number]) [address], [address] [place] [address] #### 60463-6 #### [facility] ([id number]) [address] [place] [address] 75925 KETONES KYLIE Negative Normal Negative [facility] Comment on above: Performed By: #### C BCA, CMP, FEPR, 08845-1, TSHR, 2276-4, HA1C, 2283-8, 2131-10 #### [facility] ([id number]) [address], [address] [place] [address] #### 70917-0 #### [facility] ([id number]) [address] [place] [address] [id number] LEUKOCYTE ESTERASE KYLIE Negative Normal Negative Pr [facility] Comment on above: Performed By: #### C BCA, CMP, FEPR, 58393-9, TSHR, 2276-4, HA1C, 2283-8, 2131-10 #### [facility] ([id number]) [address], [address] [place] [address] #### 15250-4 #### [facility] ([id number]) [address] [place] [id number] NITRITE KYLIE Negative Normal Negative [facility] Comment on above: Performed By: #### C BCA, CMP, FEPR, 70200-3, TSHR, 2276-4, HA1C, 2283-, 2131-10 #### [facility] ([id number]) [address], [address] [place] [address] #### 63146-8 #### [facility] ([id number]) [address] [place] [id number] PH KYLIE 5.5 Normal 5.0, 6.0, 6.5, 7.0, 7.5, 8.0, 8.5, 5.[address] [facility] Comment on above: Performed By: #### C BCA, CMP, FEPR, 15307-7, TSHR, 2276-4, HA1C, 2283-, 2131-10 #### [facility] ([id number]) [address], [address] [place] [address] #### 00211-2 #### [facility] ([id number]) [address] [place] [address] [id number] PROTEIN KYLIE 100 mg/dL Abnormal Negative [facility] Comment on above: Performed By: #### C BCA, CMP, FEPR, 27727-1, TSHR, 2276-4, HA1C, 2283-8, 2131-10 #### [facility] ([id number]) [address], [address] [place] [address] #### 53334-7 #### [facility] ([id number]) [address] [place] [id number] SPECIFIC GRAVITY KYLIE 1.020 Normal 1.010, 1.015, 1.020, 1.[address] [facility] Comment on above: Performed By: #### C BCA, CMP, FEPR, 14995-2, TSHR, 2276-4, HA1C, 2283-09, 2131-10 #### [facility] ([id number]) [address], [address] [place] [address] #### 95572-5 #### [facility] ([id number]) [address] [place] [address] [id number] UROBILINOGEN KYLIE 0.2 E.U./dL Normal [facility] Comment on above: Performed By: #### C BCA, CMP, FEPR, 76164-7, TSHR, 2276-4, HA1C, 2283-09, 2131-10 #### [facility] ([id number]) [address], [address] [place], [place] [address] #### 31705-0 #### [facility] ([id number]) [address] [place] [address] PROCALCITONINon 09-12-2024 PROCALCITONIN 3.48 ng/mL High <0.[address] [facility] Comment on above: Order Comment: <0.50 ng/mL - Low risk of severe sepsis and/or septic shock.<2.00 ng/mL - Recommend retesting within 6-24 hours.>2.00 ng/mL - High risk of sepsis and/or septic shock. Performed By: #### C BCA, CMP, FEPR, 60980-9, TSHR, 2276-4, HA1C, 4-8, 2131-10 #### [facility] ([id number]) [address], [address] [place] [address] #### 71229-4 #### [facility] ([id number]) [address] [place] [address] TROP I, HIGH SENSITIVITY 1 H OURon 09-12-2024 TROPONIN I, HIGH SENSITIVITY 13 ng/L Normal <[address] [facility] Comment on above: Performed By: #### C BCA, CMP, FEPR, 95545-5, TSHR, 2276-4, HA1C, 2283-09, 2131-10 #### [facility] ([id number]) [address] [address], [address] [place] [address] #### 88895-6 #### [facility] ([id number]) [address] [place] [address] TROPONIN I, HIGH SENSITIVITY 0 HOURon 09-12-2024 TROPONIN I, HIGH SENSITIVITY 12 ng/L Normal <[address] [facility] Comment on above: Performed By: #### C BCA, CMP, FEPR, 20650-5, TSHR, 2276-4, HA1C, 2283-, 2131-10 #### [facility] ([id number]) [address] [facility], [address] [place] [address] #### 86087-6 #### [facility] ([id number]) [address] [place] [address]2564 URINE CULTUREon 09-12-2024 Bacteria identified Cx Nom (U) CULTURE RESULTS STREPTOCOCCI, BETA HEMOLYTIC NOT GROUP A OR B 10,000-50,000 CFU/mL Streptococci, beta hemolytic not group a or b Normal [facility] Comment on above: Performed By: #### C BCA, CMP, FEPR, 97440-0, TSHR, 2276-4, HA1C, 2284-8, 2131-10 #### [facility] ([id number]) [address], [address] [place] [address] #### 66172-5 #### [facility] ([id number]) [address] [place] [address], [place] [address] US ABDOMEN LMTDon 09-12-2024 US ABDOMEN LMTD US ABDOMEN LMTD GALLBLADDER ULTRASOUND COMPARISON: CT abdomen pelvis 09/12/2024 [...] Leobardo Pascal MD on 09/12/2024 4:42 PM Normal [facility] BASIC METABOLIC PANLon 05-18 Anion gap [Moles/Vol] 10 mmol/L Normal 5-15 [facility] Comment on above: Performed By: #### C TALISHA PINR, 92808-0 #### [facility] ([id number]) [address] [place] [address] Calcium [Mass/Vol] 9.6 mg/dL Normal 8.5-10.5 [facility] Comment on above: Performed By: #### C TALISHA PINR, 12932-7 #### [facility] ([id number]) [address], [address] [place] [address] Chloride [Moles/Vol] 99 mmol/L Normal 98-109 [facility] Comment on above: Performed By: #### C TALISHA PINR, 06397-1 #### [facility] ([id number]) [address], [address] [place] [address] CO2 [Moles/Vol] 25 mmol/L Normal 22-32 [facility] Comment on above: Performed By: #### C TALISHA, PINR, 87042-2 #### [facility] ([id number]) [address], [address] [place] [address] Creatinine [Mass/Vol] 0.44 mg/dL Normal 0.40-1.00 [facility] Comment on above: Result Comment: METH OD TRACEABLE TO IDMS STANDARD Performed By: #### C TALISHA PINR, 25002-0 #### [facility] ([id number]) [address], [address] [place] [address] eGFR (CKD-EPI) NON-RACE DEPENDENT >90 Normal >59 [facility] Comment on above: Result Comment: Reported eGFR is based on the CKD-EPI 2020 equation that does not use a race coefficient. Performed By: #### C TALISHA, PINR, 83654-6 #### [facility] ([id number]) [address], [address] [place] [address] Glucose [Mass/Vol] 104 mg/dL High 65-99 [facility] Comment on above: Performed By: #### C TALISHA PINR, 67653-9 #### [facility] ([id number]) [address], [address] [place] [address] Potassium [Moles/Vol] 4.2 mmol/L Normal 3.5-5.0 [facility] Comment on above: Performed By: #### C TALISHA, PINR, 24719-1 #### [facility] ([id number]) [address], [address] [place] [address] Sodium [Moles/Vol] 134 mmol/L Normal 134-146 [facility] Comment on above: Performed By: #### C TALISHA PINR, 63949-0 #### [facility] ([id number]) [address], [address] [place] [address] Urea nitrogen [Mass/Vol] 8 mg/dL Normal 5-27 [facility] Comment on above: Performed By: #### C TALISHA PINR, 59079-6 #### [facility] ([id number]) [address], [address] [place] [address] Basic Metabolic Panelon - Anion gap [Moles/Vol] 10 mmol/L 5 - 15 mmol/L [facility] Calcium [Mass/Vol] 9.6 mg/dL 8.5 - 10. 5 mg/dL [facility] Chloride [Moles/Vol] 99 mmol/L 98 - 10 9 mmol/L [facility] CO2 [Moles/Vol] 25 mmol/L 22 - 32 mmol/L [facility] Creatinine [Mass/Vol] 0.44 mg/dL 0.40 - 1.00 mg/dL [facility] eGFR (CKD-EPI)non-race dependent - PINF [facility] Glucose [Mass/Vol] 104 mg/dL High 65 - 99 mg/dL [facility] Interpretation and review of laboratory results Abnormal [facility] Potassium [Moles/Vol] 4.2 mmol/L 3.5 - 5.0 mmol/L [facility] Sodium [Moles/Vol] 134 mmol/L 134 - 146 mmol/L [facility] Urea nitrogen [Mass/Vol] 8 mg/dL 5 - 27 mg/dL [facility] Calcium.ionized (Bld) [Mass/ Vol]on 05-18-2024 [facility] IONIZED CALCIUM 5.0 mg/dL Normal 4.5-5.3 [facility] Comment on above: Performed By: #### Shira WOODALL PINR, 71437-0 #### [facility] ([id number]) [address], [address] [place] [address] Ionized calciumon 05-18-2024 Calcium.ionized (Bld) [Mass/Vol] 5 mg/dL 4.5 - 5.3 mg/dL [facility] MAGNESIUMon 05-18-2024 Magnesium [Mass/Vol] 2.1 mg/dL Normal 1.8-2.6 [facility] Comment on above: Performed By: #### KEVIN Silva BCA, 77408-0 #### [facility] ([id number]) [address], [address] [place] [address] Magnesiumon 05-18-2024 Magnesium [Mass/Vol] 2.1 mg/dL 1.8 - 2 .6 mg/dL [facility] No Panel Informationon 05-18 [facility] PHOSPHORUSon 05-18-2024 Phosphate [Mass/Vol] 4.4 mg/dL Normal 2.4-4.9 [facility] Comment on above: Performed By: #### Shira WOODALL, PINR, 64786-7 #### [facility] ([id number]) [address] [facility], [address] [place] [address] Phosphoruson 05-18-2024 Phosphate [Mass/Vol] 4.4 mg/dL 2.4 - 4 .9 mg/dL [facility] CBC without diffon Erythrocyte distribution width (RBC) [Ratio] 13.3 % 11.5 - 15.0 % [facility] Hematocrit (Bld) [Volume fraction] 36.6 % 35 - 47 % [facility] Hemoglobin (Bld) [Mass/Vol] 12.8 g/dL 11.7 - 15.5 g/dL [facility] Interpretation and review of laboratory results Abnormal [facility] MCH (RBC) [Entitic mass] 33.7 pg 27 - 34 pg [facility] MCHC (RBC) [Mass/Vol] 34.9 g/dL 32 - 36 g/dL [facility] MCV (RBC) [Entitic vol] 97 fL 80 - 100 fL [facility] Platelet mean volume (Bld) [Entitic vol] 7.7 fL 7 - 12 fL [facility] Platelets (Bld) [#/Vol] 388 10*3/uL [facility] RBC (Bld) [#/Vol] 3.79 10*6/uL Low [facility] WBC corrected for nucl RBC Auto (Bld) [#/Vol] 7 [facility] COMPLETE BLOOD COUNTon 05-17 Erythrocyte distribution width (RBC) [Ratio] 13.3 % Normal 11.5-15.0 [facility] Comment on above: Performed By: #### 3 274-8, 2951-2 #### [facility] ([id number]) [address], [address] [place] [address] Hematocrit (Bld) [Volume fraction] 36.6 % Normal 35-47 [facility] Comment on above: Performed By: #### 3 274-8, 2951-2 #### [facility] ([id number]) [address], [address] [place] [address] Hemoglobin (Bld) [Mass/Vol] 12.8 g/dL Normal 11.7-15.5 [facility] Comment on above: Performed By: #### 3 274-8, 2951-2 #### [facility] ([id number]) [address], [address] [place] [address] MCH (RBC) [Entitic mass] 33.7 pg Normal 27-34 [facility] Comment on above: Performed By: #### 3 274-8, 2951-2 #### [facility] ([id number]) [address], [address] [place] [address] MCHC (RBC) [Mass/Vol] 34.9 g/dL Normal 32-36 [facility] Comment on above: Performed By: #### 3 274-8, 2951-2 #### [facility] ([id number]) [address], [address] [place] [address] MCV (RBC) [Entitic vol] 97 fL Normal 80-100 [facility] Comment on above: Performed By: #### 3 274-8, 295-2 #### [facility] ([id number]) [address], [address] [place] [address] Platelet mean volume (Bld) [Entitic vol] 7.7 fL Normal 7-12 [facility] Comment on above: Performed By: #### 3 274-8, 2951-2 #### [facility] ([id number]) [address], [address] [place] [address] Platelets (Bld) [#/Vol] 388 10*3/uL Normal 150-450 [facility] Comment on above: Performed By: #### 3 274-8, 2951-2 #### [facility] ([id number]) [address], [address] [place] [address] RBC COUNT 3.79 X10E12/L Low 3.80-5.20 [facility] Comment on above: Performed By: #### 3 274-8, 295-2 #### [facility] ([id number]) [address], [address] [place] [address] WBC (Bld) [#/Vol] 7.0 10*3/uL Normal 4.0-11.0 [facility] Comment on above: Performed By: #### 3 274-8, 2951-2 #### [facility] ([id number]) [address], [address] [place] [address] COMPREHENSIVE METABOLIC PANE Brock 05-17-2024 Albumin [Mass/Vol] 3.9 g/dL Normal 3.2-5.3 [facility] Comment on above: Performed By: #### 3 274-8, 2951-2 #### [facility] ([id number]) [address], [address] [place] [address] ALP [Catalytic activity/Vol] 77 U/L Normal 39-130 [facility] Comment on above: Performed By: #### 3 274-8, 295-2 #### [facility] ([id number]) [address], [address] [place] [address] ALT [Catalytic activity/Vol] 16 U/L Normal 0-31 [facility] Comment on above: Performed By: #### 3 274-8, 2951-2 #### [facility] ([id number]) [address], [address] [place] [address] Anion gap [Moles/Vol] 10 mmol/L Normal 5-15 [facility] Comment on above: Performed By: #### 3 274-8, 295-2 #### [facility] ([id number]) [address], [address] [place] [address] AST [Catalytic activity/Vol] 18 U/L Normal 0-41 [facility] Comment on above: Performed By: #### 3 274-8, 2950-2 #### [facility] ([id number]) [address], [address] [place] [address] Bilirubin [Mass/Vol] 0.4 mg/dL Normal 0.3-1.2 [facility] Comment on above: Performed By: #### 3 274-8, 295-2 #### [facility] ([id number]) [address], [address] [place] [address] Calcium [Mass/Vol] 9.1 mg/dL Normal 8.5-10.5 [facility] Comment on above: Performed By: #### 3 274-8, 295-2 #### [facility] ([id number]) [address], [address] [place] [address] Chloride [Moles/Vol] 100 mmol/L Normal 98-109 [facility] Comment on above: Performed By: #### 3 274-8, 2951-2 #### [facility] ([id number]) [address], [address] [place] [address] CO2 [Moles/Vol] 23 mmol/L Normal 22-32 [facility] Comment on above: Performed By: #### 3 274-8, 295-2 #### [facility] ([id number]) [address], [address] [place] [address] Creatinine [Mass/Vol] 0.48 mg/dL Normal 0.40-1.00 [facility] Comment on above: Result Comment: METH OD TRACEABLE TO IDMS STANDARD Performed By: #### 3 274-8, 2950-2 #### [facility] ([id number]) [address], [facility] [address] [place] [address] eGFR (CKD-EPI) NON-RACE DEPENDENT >90 Normal >59 [facility] Comment on above: Result Comment: Reported eGFR is based on the CKD-EPI 2020 equation that does not use a race coefficient. Performed By: #### 3 274-8, 2950-2 #### [facility] ([id number]) [address], [address] [place] [address] Glucose [Mass/Vol] 105 mg/dL High 65-99 [facility] Comment on above: Performed By: #### 3 274-8, 2950-2 #### [facility] ([id number]) [address], [address] [place] [address] Potassium [Moles/Vol] 4.0 mmol/L Normal 3.5-5.0 [facility] Comment on above: Performed By: #### 3 274-8, 2950-2 #### [facility] ([id number]) [address], [address] [place] [address] Protein [Mass/Vol] 6.8 g/dL Normal 6.0-8.0 [facility] Comment on above: Performed By: #### 3 274-8, 2951-2 #### [facility] ([id number]) [address], [address] [place] [address] Sodium [Moles/Vol] 133 mmol/L Low 134-146 [facility] Comment on above: Performed By: #### 3 274-8, 2951-2 #### [facility] ([id number]) [address], [address] [place] [address] Urea nitrogen [Mass/Vol] 12 mg/dL Normal 5-27 [facility] Comment on above: Performed By: #### 3 274-8, 2951-2 #### [facility] ([id number]) [address] [facility], [address] [place] [address] Calcium.ionized (Bld) [Mass/ Vol]on 05-17-2024 [facility] IONIZED CALCIUM 4.6 mg/dL Normal 4.5-5.3 [facility] Comment on above: Performed By: #### 3 274-8, 2951-2 #### [facility] ([id number]) [address] [facility], [address] [place] [address] Comprehensive metabolic pane brock 05-17-2024 Albumin [Mass/Vol] 3.9 g/dL 3.2 - 5.3 g/dL [facility] ALP [Catalytic activity/Vol] 77 U/L 39 - 130 U/L [facility] ALT No additional P-5'-P [Catalytic activity/Vol] 16 U/L 0 - 31 U/L [facility] Anion gap [Moles/Vol] 10 mmol/L 5 - 15 mmol/L [facility] AST [Catalytic activity/Vol] 18 U/L 0 - 41 U/L [facility] Bilirubin [Mass/Vol] 0.4 mg/dL 0.3 - 1 .2 mg/dL [facility] Calcium [Mass/Vol] 9.1 mg/dL 8.5 - 10. 5 mg/dL [facility] Chloride [Moles/Vol] 100 mmol/L 98 - 10 9 mmol/L [facility] CO2 [Moles/Vol] 23 mmol/L 22 - 32 mmol/L [facility] Creatinine [Mass/Vol] 0.48 mg/dL 0.40 - 1.00 mg/dL [facility] eGFR (CKD-EPI)non-race dependent - PINF [facility] Glucose [Mass/Vol] 105 mg/dL High 65 - 99 mg/dL [facility] Interpretation and review of laboratory results Abnormal [facility] Potassium [Moles/Vol] 4 mmol/L 3.5 - 5.0 mmol/L [facility] Protein [Mass/Vol] 6.8 g/dL 6.0 - 8.0 g/dL [facility] Sodium [Moles/Vol] 133 mmol/L Low 134 - 146 mmol/L [facility] Urea nitrogen [Mass/Vol] 12 mg/dL 5 - 27 mg/dL [facility] Ionized calciumon 05-17-2024 Calcium.ionized (Bld) [Mass/Vol] 4.6 mg/dL 4.5 - 5.3 mg/dL [facility] MAGNESIUMon 05-17-2024 Magnesium [Mass/Vol] 2.1 mg/dL Normal 1.8-2.6 [facility] Comment on above: Performed By: #### 3 274-8, 2951-2 #### [facility] ([id number]) [address] [place] [address], [facility] [address] [place] [address] Magnesiumon 05-17-2024 Magnesium [Mass/Vol] 2.1 mg/dL 1.8 - 2 .6 mg/dL [facility] No Panel Informationon 05-17 [facility] PHOSPHORUSon 05-17-2024 Phosphate [Mass/Vol] 4.3 mg/dL Normal 2.4-4.9 [facility] Comment on above: Performed By: #### 3 274-8, 2951-2 #### [facility] ([id number]) [address] [place] [address], [address] [place] [address] Phosphoruson 05-17-2024 Phosphate [Mass/Vol] 4.3 mg/dL 2.4 - 4 .9 mg/dL [facility] CBC without diffon Erythrocyte distribution width (RBC) [Ratio] 12.8 % 11.5 - 15.0 % [facility] Hematocrit (Bld) [Volume fraction] 33.4 % Low 35 - 47 % [facility] Hemoglobin (Bld) [Mass/Vol] 11.9 g/dL 11.7 - 15.5 g/dL [facility] Interpretation and review of laboratory results Abnormal [facility] MCH (RBC) [Entitic mass] 33.7 pg 27 - 34 pg [facility] MCHC (RBC) [Mass/Vol] 35.4 g/dL 32 - 36 g/dL [facility] MCV (RBC) [Entitic vol] 95 fL 80 - 100 fL [facility] Platelet mean volume (Bld) [Entitic vol] 8.1 fL 7 - 12 fL [facility] Platelets (Bld) [#/Vol] 394 10*3/uL [facility] RBC (Bld) [#/Vol] 3.51 10*6/uL Low [facility] WBC corrected for nucl RBC Auto (Bld) [#/Vol] 7.3 [facility] COMPLETE BLOOD COUNTon 05-16 Erythrocyte distribution width (RBC) [Ratio] 12.8 % Normal 11.5-15.0 [facility] Comment on above: Performed By: #### 3 274-8, 2951-2 #### [facility] ([id number]) [address], [address] [place] [address] Hematocrit (Bld) [Volume fraction] 33.4 % Low 35-47 [facility] Comment on above: Performed By: #### 3 274-8, 2951-2 #### [facility] ([id number]) [address], [address] [place] [address] Hemoglobin (Bld) [Mass/Vol] 11.9 g/dL Normal 11.7-15.5 [facility] Comment on above: Performed By: #### 3 274-8, 2951-2 #### [facility] ([id number]) [address], [address] [place] [address] MCH (RBC) [Entitic mass] 33.7 pg Normal 27-34 [facility] Comment on above: Performed By: #### 3 274-8, 2951-2 #### [facility] ([id number]) [address], [address] [place] [address] MCHC (RBC) [Mass/Vol] 35.4 g/dL Normal 32-36 [facility] Comment on above: Performed By: #### 3 274-8, 295-2 #### [facility] ([id number]) [address], [address] [place] [address] MCV (RBC) [Entitic vol] 95 fL Normal 80-100 [facility] Comment on above: Performed By: #### 3 274-8, 2950-2 #### [facility] ([id number]) [address], [address] [place] [address] Platelet mean volume (Bld) [Entitic vol] 8.1 fL Normal 7-12 [facility] Comment on above: Performed By: #### 3 274-8, 2950-2 #### [facility] ([id number]) [address], [address] [place] [address] Platelets (Bld) [#/Vol] 394 10*3/uL Normal 150-450 [facility] Comment on above: Performed By: #### 3 274-8, 2950-2 #### [facility] ([id number]) [address], [address] [place] [address] RBC COUNT 3.51 X10E12/L Low 3.80-5.20 [facility] Comment on above: Performed By: #### 3 274-8, 295-2 #### [facility] ([id number]) [address], [address] [place] [address] WBC (Bld) [#/Vol] 7.3 10*3/uL Normal 4.0-11.0 [facility] Comment on above: Performed By: #### 3 274-8, 2951-2 #### [facility] ([id number]) [address], [address] [place] [address] COMPREHENSIVE METABOLIC PANE Brock 05-16-2024 Albumin [Mass/Vol] 3.7 g/dL Normal 3.2-5.3 [facility] Comment on above: Performed By: #### 3 274-8, 2951-2 #### [facility] ([id number]) [address], [address] [place] [address] ALP [Catalytic activity/Vol] 78 U/L Normal 39-130 [facility] Comment on above: Performed By: #### 3 274-8, 2951-2 #### [facility] ([id number]) [address], [address] [place] [address] ALT [Catalytic activity/Vol] 22 U/L Normal 0-31 [facility] Comment on above: Performed By: #### 3 274-8, 2951-2 #### [facility] ([id number]) [address], [address] [place] [address] Anion gap [Moles/Vol] 10 mmol/L Normal 5-15 [facility] Comment on above: Performed By: #### 3 274-8, 2951-2 #### [facility] ([id number]) [address], [address] [place] [address] AST [Catalytic activity/Vol] 17 U/L Normal 0-41 [facility] Comment on above: Performed By: #### 3 274-8, 2951-2 #### [facility] ([id number]) [address], [address] [place] [address] Bilirubin [Mass/Vol] 0.4 mg/dL Normal 0.3-1.2 [facility] Comment on above: Performed By: #### 3 274-8, 2950-2 #### [facility] ([id number]) [address], [address] [place] [address] Calcium [Mass/Vol] 9.3 mg/dL Normal 8.5-10.5 [facility] Comment on above: Performed By: #### 3 274-8, 2950-2 #### [facility] ([id number]) [address], [address] [place] [address] Chloride [Moles/Vol] 98 mmol/L Normal 98-109 [facility] Comment on above: Performed By: #### 3 274-8, 2950-2 #### [facility] ([id number]) [address], [address] [place], [place] [address] CO2 [Moles/Vol] 25 mmol/L Normal 22-32 [facility] Comment on above: Performed By: #### 3 274-8, 2950-2 #### [facility] ([id number]) [address], [address] [place], [place] [address] Creatinine [Mass/Vol] 0.45 mg/dL Normal 0.40-1.00 [facility] Comment on above: Result Comment: METH OD TRACEABLE TO IDMS STANDARD Performed By: #### 3 274-8, 2950-2 #### [facility] ([id number]) [address], [address] [place], [place] [address] eGFR (CKD-EPI) NON-RACE DEPENDENT >90 Normal >59 [facility] Comment on above: Result Comment: Reported eGFR is based on the CKD-EPI 2020 equation that does not use a race coefficient. Performed By: #### 3 274-8, 2951-2 #### [facility] ([id number]) [address], [address] [place], [place] [address] Glucose [Mass/Vol] 95 mg/dL Normal 65-99 [facility] Comment on above: Performed By: #### 3 274-8, 2951-2 #### [facility] ([id number]) [address], [address] [place] [address] Potassium [Moles/Vol] 4.0 mmol/L Normal 3.5-5.0 [facility] Comment on above: Performed By: #### 3 274-8, 2951-2 #### [facility] ([id number]) [address], [address] [place] [address] Protein [Mass/Vol] 6.9 g/dL Normal 6.0-8.0 [facility] Comment on above: Performed By: #### 3 274-8, 2951-2 #### [facility] ([id number]) [address] [address] [place] [address] Sodium [Moles/Vol] 133 mmol/L Low 134-146 [facility] Comment on above: Performed By: #### 3 274-8, 2951-2 #### [facility] ([id number]) [address] [place] [address] Urea nitrogen [Mass/Vol] 13 mg/dL Normal 5-27 [facility] Comment on above: Performed By: #### 3 274-8, 2951-2 #### [facility] ([id number]) [address] [place] [address] Calcium.ionized (Bld) [Mass/ Vol]on 05-16-2024 [facility] IONIZED CALCIUM 4.5 mg/dL Normal 4.5-5.3 [facility] Comment on above: Performed By: #### 3 274-8, 2951-2 #### [facility] ([id number]) [address] [place] [address] Comprehensive metabolic pane brock 05-16-2024 Albumin [Mass/Vol] 3.7 g/dL 3.2 - 5.3 g/dL [facility] ALP [Catalytic activity/Vol] 78 U/L 39 - 130 U/L [facility] ALT No additional P-5'-P [Catalytic activity/Vol] 22 U/L 0 - 31 U/L [facility] Anion gap [Moles/Vol] 10 mmol/L 5 - 15 mmol/L [facility] AST [Catalytic activity/Vol] 17 U/L 0 - 41 U/L [facility] Bilirubin [Mass/Vol] 0.4 mg/dL 0.3 - 1 .2 mg/dL [facility] Calcium [Mass/Vol] 9.3 mg/dL 8.5 - 10. 5 mg/dL [facility] Chloride [Moles/Vol] 98 mmol/L 98 - 10 9 mmol/L [facility] CO2 [Moles/Vol] 25 mmol/L 22 - 32 mmol/L [facility] Creatinine [Mass/Vol] 0.45 mg/dL 0.40 - 1.00 mg/dL [facility] eGFR (CKD-EPI)non-race dependent - PINF [facility] Glucose [Mass/Vol] 95 mg/dL 65 - 99 mg/dL [facility] Interpretation and review of laboratory results Abnormal [facility] Potassium [Moles/Vol] 4 mmol/L 3.5 - 5.0 mmol/L [facility] Protein [Mass/Vol] 6.9 g/dL 6.0 - 8.0 g/dL [facility] Sodium [Moles/Vol] 133 mmol/L Low 134 - 146 mmol/L [facility] Urea nitrogen [Mass/Vol] 13 mg/dL 5 - 27 mg/dL [facility] Ionized calciumon 05-16-2024 Calcium.ionized (Bld) [Mass/Vol] 4.5 mg/dL 4.5 - 5.3 mg/dL [facility] MAGNESIUMon 05-16-2024 Magnesium [Mass/Vol] 2.0 mg/dL Normal 1.8-2.6 [facility] Comment on above: Performed By: #### 3 274-8, 2951-2 #### [facility] ([id number]) [address] [place] [address] Magnesiumon 05-16-2024 Magnesium [Mass/Vol] 2 mg/dL 1.8 - 2 .6 mg/dL [facility] No Panel Informationon 05-16 [facility] PHOSPHORUSon 05-16-2024 Phosphate [Mass/Vol] 4.3 mg/dL Normal 2.4-4.9 [facility] Comment on above: Performed By: #### 3 274-8, 2951-2 #### [facility] ([id number]) [address] [place] [address] Phosphoruson 05-16-2024 Phosphate [Mass/Vol] 4.3 mg/dL 2.4 - 4 .9 mg/dL [facility] CBC without diffon Erythrocyte distribution width (RBC) [Ratio] 12.9 % 11.5 - 15.0 % [facility] Hematocrit (Bld) [Volume fraction] 38.1 % 35 - 47 % [facility] Hemoglobin (Bld) [Mass/Vol] 13.5 g/dL 11.7 - 15.5 g/dL [facility] MCH (RBC) [Entitic mass] 33.9 pg 27 - 34 pg [facility] MCHC (RBC) [Mass/Vol] 35.3 g/dL 32 - 36 g/dL [facility] MCV (RBC) [Entitic vol] 96 fL 80 - 100 fL [facility] Platelet mean volume (Bld) [Entitic vol] 8.1 fL 7 - 12 fL [facility] Platelets (Bld) [#/Vol] 426 10*3/uL [facility] RBC (Bld) [#/Vol] 3.97 10*6/uL [facility] WBC corrected for nucl RBC Auto (Bld) [#/Vol] 8.4 [facility] COMPLETE BLOOD COUNTon 05-15 Erythrocyte distribution width (RBC) [Ratio] 12.9 % Normal 11.5-15.0 [facility] Comment on above: Performed By: #### T HYR, CMP, #### [facility] ([id number]) [address] [place] [address] Hematocrit (Bld) [Volume fraction] 38.1 % Normal 35-47 [facility] Comment on above: Performed By: #### Adela NEFF CMP, #### [facility] ([id number]) [address] [place] [address] Hemoglobin (Bld) [Mass/Vol] 13.5 g/dL Normal 11.7-15.5 [facility] Comment on above: Performed By: #### Adela NEFF CMP, #### [facility] ([id number]) [address] [place] [address] MCH (RBC) [Entitic mass] 33.9 pg Normal 27-34 [facility] Comment on above: Performed By: #### Adela NEFF CMP, #### [facility] ([id number]) [address] [place] [address] MCHC (RBC) [Mass/Vol] 35.3 g/dL Normal 32-36 [facility] Comment on above: Performed By: #### Adela NEFF CMP, #### [facility] ([id number]) [address] [place] [address] MCV (RBC) [Entitic vol] 96 fL Normal 80-100 [facility] Comment on above: Performed By: #### T HYRRAMOS, #### [facility] ([id number]) [address] [place] [address] Platelet mean volume (Bld) [Entitic vol] 8.1 fL Normal 7-12 [facility] Comment on above: Performed By: #### T HYRAMOS Delgado, #### [facility] ([id number]) [address] [place] [address] Platelets (Bld) [#/Vol] 426 10*3/uL Normal 150-450 [facility] Comment on above: Performed By: #### T AISHWARYA, CMP, 25587-7 #### [facility] ([id number]) [address] [place] [address] RBC COUNT 3.97 X10E12/L Normal 3.80-5.20 [facility] Comment on above: Performed By: #### T HYR, CMP, 48490-4 #### [facility] ([id number]) [address] [place] [address] WBC (Bld) [#/Vol] 8.4 10*3/uL Normal 4.0-11.0 [facility] Comment on above: Performed By: #### T AISHWARYA CMP, 72658-4 #### [facility] ([id number]) [address] [place] [address] COMPREHENSIVE METABOLIC PANE Brock 05-15-2024 Albumin [Mass/Vol] 4.2 g/dL Normal 3.2-5.3 [facility] Comment on above: Performed By: #### T BANDARR, CMP, 52001-8 #### [facility] ([id number]) [address] [place] [address] ALP [Catalytic activity/Vol] 93 U/L Normal 39-130 [facility] Comment on above: Performed By: #### T HYR, CMP, 22436-1 #### [facility] ([id number]) [address] [place] [address] ALT [Catalytic activity/Vol] 22 U/L Normal 0-31 [facility] Comment on above: Performed By: #### T HYR, CMP, #### [facility] ([id number]) [address] [place] [address] Anion gap [Moles/Vol] 9 mmol/L Normal 5-15 [facility] Comment on above: Performed By: #### Adela NEFF CMP, #### [facility] ([id number]) [address] [place] [address] AST [Catalytic activity/Vol] 27 U/L Normal 0-41 [facility] Comment on above: Performed By: #### Adela NEFF CMP, #### [facility] ([id number]) [address] [place] [address] Bilirubin [Mass/Vol] 0.5 mg/dL Normal 0.3-1.2 [facility] Comment on above: Performed By: #### Adela NEFF CMP, #### [facility] ([id number]) [address] [place] [address] Calcium [Mass/Vol] 9.8 mg/dL Normal 8.5-10.5 [facility] Comment on above: Performed By: #### Adela NEFF CMP, #### [facility] ([id number]) [address] [place] [address] Chloride [Moles/Vol] 99 mmol/L Normal 98-109 [facility] Comment on above: Performed By: #### Adela NEFF CMP, #### [facility] ([id number]) [address] [place] [address] CO2 [Moles/Vol] 27 mmol/L Normal 22-32 [facility] Comment on above: Performed By: #### Adela NEFF CMP, #### [facility] ([id number]) [address] [place] [address] Creatinine [Mass/Vol] 0.46 mg/dL Normal 0.40-1.00 [facility] Comment on above: Result Comment: METH OD TRACEABLE TO IDMS STANDARD Performed By: #### Adela NEFF CMP, #### [facility] ([id number]) [address] [place] [address] eGFR (CKD-EPI) NON-RACE DEPENDENT >90 Normal >59 [facility] Comment on above: Result Comment: Reported eGFR is based on the CKD-EPI 2020 equation that does not use a race coefficient. Performed By: #### Adela NEFF CMP, #### [facility] ([id number]) [address] [place] [address] Glucose [Mass/Vol] 92 mg/dL Normal 65-99 [facility] Comment on above: Performed By: #### Adela NEFF CMP, #### [facility] ([id number]) [address] [place] [address] Potassium [Moles/Vol] 3.9 mmol/L Normal 3.5-5.0 [facility] Comment on above: Performed By: #### Adela NFEF CMP, #### [facility] ([id number]) [address] [place] [address] Protein [Mass/Vol] 7.4 g/dL Normal 6.0-8.0 [facility] Comment on above: Performed By: #### Adela NEFF CMP, #### [facility] ([id number]) [address] [place] [address] Sodium [Moles/Vol] 135 mmol/L Normal 134-146 [facility] Comment on above: Performed By: #### Adela NEFF CMP, #### [facility] ([id number]) [address] [place] [address] Urea nitrogen [Mass/Vol] 6 mg/dL Normal 5-27 [facility] Comment on above: Performed By: #### T RAMOS NEFF, 80279-4 #### [facility] ([id number]) [address] [place] [address] Calcium.ionized (Bld) [Mass/ Vol]on 05-15-2024 [facility] IONIZED CALCIUM 5.0 mg/dL Normal 4.5-5.3 [facility] Comment on above: Performed By: #### T RAMOS NEFF, 05643-8 #### [facility] ([id number]) [address] [place] [address] Comprehensive metabolic pane brock 05-15-2024 Albumin [Mass/Vol] 4.2 g/dL 3.2 - 5.3 g/dL [facility] ALP [Catalytic activity/Vol] 93 U/L 39 - 130 U/L [facility] ALT No additional P-5'-P [Catalytic activity/Vol] 22 U/L 0 - 31 U/L [facility] Anion gap [Moles/Vol] 9 mmol/L 5 - 15 mmol/L [facility] AST [Catalytic activity/Vol] 27 U/L 0 - 41 U/L [facility] Bilirubin [Mass/Vol] 0.5 mg/dL 0.3 - 1 .2 mg/dL [facility] Calcium [Mass/Vol] 9.8 mg/dL 8.5 - 10. 5 mg/dL [facility] Chloride [Moles/Vol] 99 mmol/L 98 - 10 9 mmol/L [facility] CO2 [Moles/Vol] 27 mmol/L 22 - 32 mmol/L [facility] Creatinine [Mass/Vol] 0.46 mg/dL 0.40 - 1.00 mg/dL [facility] eGFR (CKD-EPI)non-race dependent - PINF [facility] Glucose [Mass/Vol] 92 mg/dL 65 - 99 mg/dL [facility] Potassium [Moles/Vol] 3.9 mmol/L 3.5 - 5.0 mmol/L [facility] Protein [Mass/Vol] 7.4 g/dL 6.0 - 8.0 g/dL [facility] Sodium [Moles/Vol] 135 mmol/L 134 - 146 mmol/L [facility] Urea nitrogen [Mass/Vol] 6 mg/dL 5 - 27 mg/dL [facility] Ionized calciumon 05-15-2024 Calcium.ionized (Bld) [Mass/Vol] 5 mg/dL 4.5 - 5.3 mg/dL [facility] MAGNESIUMon 05-15-2024 Magnesium [Mass/Vol] 2.1 mg/dL Normal 1.8-2.6 [facility] Comment on above: Performed By: #### Adela NEFF [facility], [address]05[address]-4 #### [facility] ([id number]) [address], [address] [place] [address] Magnesiumon 05-15-2024 Magnesium [Mass/Vol] 2.1 mg/dL 1.8 - 2 .6 mg/dL [facility] No Panel Informationon 05-15 [facility] PHOSPHORUSon 05-15-2024 Phosphate [Mass/Vol] 3.9 mg/dL Normal 2.4-4.9 [facility] Comment on above: Performed By: #### Adela NEFF [facility], 28291-6 #### [facility] ([id number]) [address] [place] [address] Phosphoruson 05-15-2024 Phosphate [Mass/Vol] 3.9 mg/dL 2.4 - 4 .9 mg/dL [facility] CBC without diffon Erythrocyte distribution width (RBC) [Ratio] 13 % 11.5 - 15.0 % [facility] Hematocrit (Bld) [Volume fraction] 35.3 % 35 - 47 % [facility] Hemoglobin (Bld) [Mass/Vol] 12.3 g/dL 11.7 - 15.5 g/dL [facility] Interpretation and review of laboratory results Abnormal [facility] MCH (RBC) [Entitic mass] 33.2 pg 27 - 34 pg [facility] MCHC (RBC) [Mass/Vol] 34.9 g/dL 32 - 36 g/dL [facility] MCV (RBC) [Entitic vol] 95 fL 80 - 100 fL [facility] Platelet mean volume (Bld) [Entitic vol] 8.2 fL 7 - 12 fL [facility] Platelets (Bld) [#/Vol] 334 10*3/uL [facility] RBC (Bld) [#/Vol] 3.71 10*6/uL Low [facility] WBC corrected for nucl RBC Auto (Bld) [#/Vol] 7.7 [facility] COMPLETE BLOOD COUNTon 05-14 Erythrocyte distribution width (RBC) [Ratio] 13.0 % Normal 11.5-15.0 [facility] Comment on above: Performed By: #### Adela NEFF CMP, 24069-8 #### [facility] ([id number]) [address] [place] [address] Hematocrit (Bld) [Volume fraction] 35.3 % Normal 35-47 [facility] Comment on above: Performed By: #### Adela NEFF CMP, #### [facility] ([id number]) [address] [place] [address] Hemoglobin (Bld) [Mass/Vol] 12.3 g/dL Normal 11.7-15.5 [facility] Comment on above: Performed By: #### T HYRAMOS Delgado, #### [facility] ([id number]) [address] [place] [address] MCH (RBC) [Entitic mass] 33.2 pg Normal 27-34 [facility] Comment on above: Performed By: #### T HYRAMOS Delgado, #### [facility] ([id number]) [address] [place] [address] MCHC (RBC) [Mass/Vol] 34.9 g/dL Normal 32-36 [facility] Comment on above: Performed By: #### Adela NEFF CMP, #### [facility] ([id number]) [address] [place] [address] MCV (RBC) [Entitic vol] 95 fL Normal 80-100 [facility] Comment on above: Performed By: #### Adela NEFF CMP, #### [facility] ([id number]) [address] [place] [address] Platelet mean volume (Bld) [Entitic vol] 8.2 fL Normal 7-12 [facility] Comment on above: Performed By: #### Adela NEFF CMP, #### [facility] ([id number]) [address] [place] [address] Platelets (Bld) [#/Vol] 334 10*3/uL Normal 150-450 [facility] Comment on above: Performed By: #### Adela NEFF CMP, #### [facility] ([id number]) [address] [place] [address] RBC COUNT 3.71 X10E12/L Low 3.80-5.20 [facility] Comment on above: Performed By: #### Adela NEFF CMP, #### [facility] ([id number]) [address] [place] [address] WBC (Bld) [#/Vol] 7.7 10*3/uL Normal 4.0-11.0 [facility] Comment on above: Performed By: #### Adela NEFF CMP, #### [facility] ([id number]) [address] [place] [address] COMPREHENSIVE METABOLIC PANE Brock 05-14-2024 Albumin [Mass/Vol] 3.6 g/dL Normal 3.2-5.3 [facility] Comment on above: Performed By: #### Adela NEFF CMP, 69206-0 #### [facility] ([id number]) [address] [place] [address] ALP [Catalytic activity/Vol] 83 U/L Normal 39-130 [facility] Comment on above: Performed By: #### Adela NEFF CMP, #### [facility] ([id number]) [address] [place] [address] ALT [Catalytic activity/Vol] 19 U/L Normal 0-31 [facility] Comment on above: Performed By: #### Adela NEFF CMP, #### [facility] ([id number]) [address] [place] [address] Anion gap [Moles/Vol] 9 mmol/L Normal 5-15 [facility] Comment on above: Performed By: #### Adela NEFF CMP, #### [facility] ([id number]) [address] [place] [address] AST [Catalytic activity/Vol] 19 U/L Normal 0-41 [facility] Comment on above: Performed By: #### Adela NEFF CMP, #### [facility] ([id number]) [address] [place] [address] Bilirubin [Mass/Vol] 0.4 mg/dL Normal 0.3-1.2 [facility] Comment on above: Performed By: #### Adela NEFF CMP, #### [facility] ([id number]) [address] [place] [address] Calcium [Mass/Vol] 8.9 mg/dL Normal 8.5-10.5 [facility] Comment on above: Performed By: #### Adela NEFF [facility], #### [facility] ([id number]) [address] [place] [address] Chloride [Moles/Vol] 101 mmol/L Normal 98-109 [facility] Comment on above: Performed By: #### Adela NEFF [facility], #### [facility] ([id number]) [address] [place] [address] CO2 [Moles/Vol] 25 mmol/L Normal 22-32 [facility] Comment on above: Performed By: #### Adela NEFF [facility], #### [facility] ([id number]) [address] [place] [address] Creatinine [Mass/Vol] 0.52 mg/dL Normal 0.40-1.00 [facility] Comment on above: Result Comment: METH OD TRACEABLE TO IDMS STANDARD Performed By: #### Adela NEFF [facility], 89344-3 #### [facility] ([id number]) [address] [place] [address] eGFR (CKD-EPI) NON-RACE DEPENDENT >90 Normal >59 [facility] Comment on above: Result Comment: Reported eGFR is based on the CKD-EPI 2020 equation that does not use a race coefficient. Performed By: #### Adela NEFF CMP, #### [facility] ([id number]) [address] [place] [address] Glucose [Mass/Vol] 100 mg/dL High 65-99 [facility] Comment on above: Performed By: #### Adela NEFF [facility], #### [facility] ([id number]) [address] [place] [address] Potassium [Moles/Vol] 4.0 mmol/L Normal 3.5-5.0 [facility] Comment on above: Performed By: #### Adela NEFF CMP, 84657-5 #### [facility] ([id number]) [address] [place] [address] Protein [Mass/Vol] 6.7 g/dL Normal 6.0-8.0 [facility] Comment on above: Performed By: #### Adela NEFF CMP, 37510-5 #### [facility] ([id number]) [address] [place] [address] Sodium [Moles/Vol] 135 mmol/L Normal 134-146 [facility] Comment on above: Performed By: #### Adela NEFF CMP, 08332-4 #### [facility] ([id number]) [address] [place] [address] Urea nitrogen [Mass/Vol] 7 mg/dL Normal 5-27 [facility] Comment on above: Performed By: #### Adela ENFF CMP, 57372-8 #### [facility] ([id number]) [address] [place] [address] Calcium.ionized (Bld) [Mass/ Vol]on 05-14-2024 Interpretation and review of laboratory results Abnormal [facility] IONIZED CALCIUM 4.2 mg/dL Low 4.5-5.3 [facility] Comment on above: Performed By: #### Adela NEFF CMP, 53096-5 #### [facility] ([id number]) [address] [place] [address] Comprehensive metabolic pane brock 05-14-2024 Albumin [Mass/Vol] 3.6 g/dL 3.2 - 5.3 g/dL [facility] ALP [Catalytic activity/Vol] 83 U/L 39 - 130 U/L [facility] ALT No additional P-5'-P [Catalytic activity/Vol] 19 U/L 0 - 31 U/L [facility] Anion gap [Moles/Vol] 9 mmol/L 5 - 15 mmol/L [facility] AST [Catalytic activity/Vol] 19 U/L 0 - 41 U/L [facility] Bilirubin [Mass/Vol] 0.4 mg/dL 0.3 - 1 .2 mg/dL [facility] Calcium [Mass/Vol] 8.9 mg/dL 8.5 - 10. 5 mg/dL [facility] Chloride [Moles/Vol] 101 mmol/L 98 - 10 9 mmol/L [facility] CO2 [Moles/Vol] 25 mmol/L 22 - 32 mmol/L [facility] Creatinine [Mass/Vol] 0.52 mg/dL 0.40 - 1.00 mg/dL [facility] eGFR (CKD-EPI)non-race dependent - PINF [facility] Glucose [Mass/Vol] 100 mg/dL High 65 - 99 mg/dL [facility] Interpretation and review of laboratory results Abnormal [facility] Potassium [Moles/Vol] 4 mmol/L 3.5 - 5.0 mmol/L [facility] Protein [Mass/Vol] 6.7 g/dL 6.0 - 8.0 g/dL [facility] Sodium [Moles/Vol] 135 mmol/L 134 - 146 mmol/L [facility] Urea nitrogen [Mass/Vol] 7 mg/dL 5 - 27 mg/dL [facility] Glucose Glucometer (BldC) [M ass/Vol]on 05-14-2024 Glucose [Mass/Vol] 86 mg/dL 65 - 99 mg/dL [facility] Glucose [Mass/Vol] 86 mg/dL Normal 65-99 [facility] Ionized calciumon 05-14-2024 Calcium.ionized (Bld) [Mass/Vol] 4.2 mg/dL Low 4.5 - 5.3 mg/dL [facility] MAGNESIUMon 05-14-2024 Magnesium [Mass/Vol] 2.0 mg/dL Normal 1.8-2.6 [facility] Comment on above: Performed By: #### T HYR, [facility], 28477-4 #### [facility] ([id number]) [address], [address] [place] [address] Magnesiumon 05-14-2024 Magnesium [Mass/Vol] 2 mg/dL 1.8 - 2 .6 mg/dL [facility] No Panel Informationon 05-14 [facility] PHOSPHORUSon 05-14-2024 Phosphate [Mass/Vol] 4.3 mg/dL Normal 2.4-4.9 [facility] Comment on above: Performed By: #### T HYR, [facility], 75955-3 #### [facility] ([id number]) [address], [address] [place] [address] Phosphoruson 05-14-2024 Phosphate [Mass/Vol] 4.3 mg/dL 2.4 - 4 .9 mg/dL [facility] Thiamin (Vitamin B1), WBon 0 05-14-2024 Thiamine (Bld) [Moles/Vol] 68 nmol/L Low 70 - 180 nmol/L [facility] Thiamine (Bld) [Moles/Vol] 56 nmol/L Low 70 - 180 nmol/L [facility] Thiamine (Bld) [Moles/Vol]on 05-14-2024 Interpretation and review of laboratory results Abnormal [facility] Interpretation and review of laboratory results Abnormal [facility] CBC without diffon Erythrocyte distribution width (RBC) [Ratio] 12.8 % 11.5 - 15.0 % [facility] Hematocrit (Bld) [Volume fraction] 32.9 % Low 35 - 47 % [facility] Hemoglobin (Bld) [Mass/Vol] 11.8 g/dL 11.7 - 15.5 g/dL [facility] Interpretation and review of laboratory results Abnormal [facility] MCH (RBC) [Entitic mass] 33.8 pg 27 - 34 pg [facility] MCHC (RBC) [Mass/Vol] 35.8 g/dL 32 - 36 g/dL [facility] MCV (RBC) [Entitic vol] 94 fL 80 - 100 fL [facility] Platelet mean volume (Bld) [Entitic vol] 8.3 fL 7 - 12 fL [facility] Platelets (Bld) [#/Vol] 305 10*3/uL [facility] RBC (Bld) [#/Vol] 3.49 10*6/uL Low [facility] WBC corrected for nucl RBC Auto (Bld) [#/Vol] 7.9 [facility] COMPLETE BLOOD COUNTon 05-13 Erythrocyte distribution width (RBC) [Ratio] 12.8 % Normal 11.5-15.0 [facility] Comment on above: Performed By: #### Adela NFEF CMP, #### [facility] ([id number]) [address], [address] [place] [address] Hematocrit (Bld) [Volume fraction] 32.9 % Low 35-47 [facility] Comment on above: Performed By: #### Adela NEFF CMP, #### [facility] ([id number]) [address], [address] [place] [address] Hemoglobin (Bld) [Mass/Vol] 11.8 g/dL Normal 11.7-15.5 [facility] Comment on above: Performed By: #### Adela NEFF CMP, #### [facility] ([id number]) [address], [address] [place] [address] MCH (RBC) [Entitic mass] 33.8 pg Normal 27-34 [facility] Comment on above: Performed By: #### T HYR CMP, #### [facility] ([id number]) [address], [address] [place] [address] MCHC (RBC) [Mass/Vol] 35.8 g/dL Normal 32-36 [facility] Comment on above: Performed By: #### T HYR CMP, #### [facility] ([id number]) [address], [address] [place] [address] MCV (RBC) [Entitic vol] 94 fL Normal 80-100 [facility] Comment on above: Performed By: #### Adela NEFF CMP, #### [facility] ([id number]) [address], [address] [place] [address] Platelet mean volume (Bld) [Entitic vol] 8.3 fL Normal 7-12 [facility] Comment on above: Performed By: #### T RAMOS NEFF, #### [facility] ([id number]) [address], [address] [place] [address] Platelets (Bld) [#/Vol] 305 10*3/uL Normal 150-450 [facility] Comment on above: Performed By: #### Adela NEFF CMP, #### [facility] ([id number]) [address], [address] [place] [address] RBC COUNT 3.49 X10E12/L Low 3.80-5.20 [facility] Comment on above: Performed By: #### Adela NEFF CMP, #### [facility] ([id number]) [address], [address] [place] [address] WBC (Bld) [#/Vol] 7.9 10*3/uL Normal 4.0-11.0 [facility] Comment on above: Performed By: #### T AISHWARYA CMP, #### [facility] ([id number]) [address] [place] [address] COMPREHENSIVE METABOLIC PANE Brock 05-13-2024 Albumin [Mass/Vol] 3.4 g/dL Normal 3.2-5.3 [facility] Comment on above: Performed By: #### T HYR CMP, #### [facility] ([id number]) [address] [place] [address] ALP [Catalytic activity/Vol] 85 U/L Normal 39-130 [facility] Comment on above: Performed By: #### Adela NEFF CMP, #### [facility] ([id number]) [address], [address] [place], [place] [address] ALT [Catalytic activity/Vol] 14 U/L Normal 0-31 [facility] Comment on above: Performed By: #### Adela NEFF CMP, #### [facility] ([id number]) [address] [place] [address] Anion gap [Moles/Vol] 8 mmol/L Normal 5-15 [facility] Comment on above: Performed By: #### Adela NEFF CMP, #### [facility] ([id number]) [address] [place] [address] AST [Catalytic activity/Vol] 16 U/L Normal 0-41 [facility] Comment on above: Performed By: #### Adela NEFF CMP, #### [facility] ([id number]) [address], [address] [place] [address] Bilirubin [Mass/Vol] 0.6 mg/dL Normal 0.3-1.2 [facility] Comment on above: Performed By: #### Adela NEFF CMP, #### [facility] ([id number]) [address], [address] [place] [address] Calcium [Mass/Vol] 8.6 mg/dL Normal 8.5-10.5 [facility] Comment on above: Performed By: #### Adela NEFF CMP, #### [facility] ([id number]) [address], [address] [place] [address] Chloride [Moles/Vol] 100 mmol/L Normal 98-109 [facility] Comment on above: Performed By: #### Adela NEFF CMP, 69977-0 #### [facility] ([id number]) [address], [address] [place] [address] CO2 [Moles/Vol] 25 mmol/L Normal 22-32 [facility] Comment on above: Performed By: #### Adela NEFF CMP, #### [facility] ([id number]) [address] [place] [address] Creatinine [Mass/Vol] 0.42 mg/dL Normal 0.40-1.00 [facility] Comment on above: Result Comment: METH OD TRACEABLE TO IDMS STANDARD Performed By: #### Adela NEFF CMP, #### [facility] ([id number]) [address], [address] [place] [address] eGFR (CKD-EPI) NON-RACE DEPENDENT >90 Normal >59 [facility] Comment on above: Result Comment: Reported eGFR is based on the CKD-EPI 2020 equation that does not use a race coefficient. Performed By: #### Adela NEFF CMP, #### [facility] ([id number]) [address], [address] [place] [address] Glucose [Mass/Vol] 94 mg/dL Normal 65-99 [facility] Comment on above: Performed By: #### Adela NEFF CMP, #### [facility] ([id number]) [address], [address] [place] [address] Potassium [Moles/Vol] 3.5 mmol/L Normal 3.5-5.0 [facility] Comment on above: Performed By: #### Adela NEFF CMP, #### [facility] ([id number]) [address], [address] [place] [address] Protein [Mass/Vol] 6.0 g/dL Normal 6.0-8.0 [facility] Comment on above: Performed By: #### Adela NEFF CMP, 56180-4 #### [facility] ([id number]) [address], [address] [place] [address] Sodium [Moles/Vol] 133 mmol/L Low 134-146 [facility] Comment on above: Performed By: #### Adela NEFF CMP, 70536-4 #### [facility] ([id number]) [address], [address] [place] [address] Urea nitrogen [Mass/Vol] 6 mg/dL Normal 5-27 [facility] Comment on above: Performed By: #### Adela NEFF CMP, 74859-0 #### [facility] ([id number]) [address], [address] [place] [address] Calcium.ionized (Bld) [Mass/ Vol]on 05-13-2024 [facility] IONIZED CALCIUM 4.6 mg/dL Normal 4.5-5.3 [facility] Comment on above: Performed By: #### Adela NEFF CMP, 96107-2 #### [facility] ([id number]) [address], [address] [place] [address] Comprehensive metabolic pane brock 05-13-2024 Albumin [Mass/Vol] 3.4 g/dL 3.2 - 5.3 g/dL [facility] ALP [Catalytic activity/Vol] 85 U/L 39 - 130 U/L [facility] ALT No additional P-5'-P [Catalytic activity/Vol] 14 U/L 0 - 31 U/L [facility] Anion gap [Moles/Vol] 8 mmol/L 5 - 15 mmol/L [facility] AST [Catalytic activity/Vol] 16 U/L 0 - 41 U/L [facility] Bilirubin [Mass/Vol] 0.6 mg/dL 0.3 - 1 .2 mg/dL [facility] Calcium [Mass/Vol] 8.6 mg/dL 8.5 - 10. 5 mg/dL [facility] Chloride [Moles/Vol] 100 mmol/L 98 - 10 9 mmol/L [facility] CO2 [Moles/Vol] 25 mmol/L 22 - 32 mmol/L [facility] Creatinine [Mass/Vol] 0.42 mg/dL 0.40 - 1.00 mg/dL [facility] eGFR (CKD-EPI)non-race dependent - PINF [facility] Glucose [Mass/Vol] 94 mg/dL 65 - 99 mg/dL [facility] Interpretation and review of laboratory results Abnormal [facility] Potassium [Moles/Vol] 3.5 mmol/L 3.5 - 5.0 mmol/L [facility] Protein [Mass/Vol] 6 g/dL 6.0 - 8.0 g/dL [facility] Sodium [Moles/Vol] 133 mmol/L Low 134 - 146 mmol/L [facility] Urea nitrogen [Mass/Vol] 6 mg/dL 5 - 27 mg/dL [facility] ELECTROLYTESon 05-13-2024 Anion gap [Moles/Vol] 9 mmol/L Normal 5-15 [facility] Comment on above: Performed By: #### Adela NEFF CMP, 50771-5 #### [facility] ([id number]) [address], [address] [place] [address] Chloride [Moles/Vol] 97 mmol/L Low 98-109 [facility] Comment on above: Performed By: #### Adela NEFF CMP, 83062-3 #### [facility] ([id number]) [address], [address] [place] [address] CO2 [Moles/Vol] 26 mmol/L Normal 22-32 [facility] Comment on above: Performed By: #### Adela NEFF CMP, #### [facility] ([id number]) [address], [address] [place] [address] Potassium [Moles/Vol] 3.8 mmol/L Normal 3.5-5.0 [facility] Comment on above: Performed By: #### T RAMOS NEFF, 38195-8 #### [facility] ([id number]) [address] [place] [address] Sodium [Moles/Vol] 132 mmol/L Low 134-146 [facility] Comment on above: Performed By: #### Adela NEFF CMP, 79593-0 #### [facility] ([id number]) [address] [place] [address] Electrolyte panelon 05-14-19 25 Anion gap [Moles/Vol] 9 mmol/L 5 - 15 mmol/L [facility] Chloride [Moles/Vol] 97 mmol/L Low 98 - 10 9 mmol/L [facility] CO2 [Moles/Vol] 26 mmol/L 22 - 32 mmol/L [facility] Interpretation and review of laboratory results Abnormal [facility] Potassium [Moles/Vol] 3.8 mmol/L 3.5 - 5.0 mmol/L [facility] Sodium [Moles/Vol] 132 mmol/L Low 134 - 146 mmol/L [facility] Ionized calciumon 05-13-2024 Calcium.ionized (Bld) [Mass/Vol] 4.6 mg/dL 4.5 - 5.3 mg/dL [facility] MAGNESIUMon 05-13-2024 Magnesium [Mass/Vol] 2.1 mg/dL Normal 1.8-2.6 [facility] Comment on above: Performed By: #### T RAMOS NEFF, 19429-9 #### [facility] ([id number]) [address] [place] [address] Magnesiumon 05-13-2024 Magnesium [Mass/Vol] 2.1 mg/dL 1.8 - 2 .6 mg/dL [facility] No Panel Informationon 05-13 [facility] PHOSPHORUSon 05-13-2024 Phosphate [Mass/Vol] 4.0 mg/dL Normal 2.4-4.9 [facility] Comment on above: Performed By: #### T RAMOS NEFF, 74474-7 #### [facility] ([id number]) [address] [place] [address] Phosphoruson 05-13-2024 Phosphate [Mass/Vol] 4 mg/dL 2.4 - 4 .9 mg/dL [facility] CBC without diffon Erythrocyte distribution width (RBC) [Ratio] 12.7 % 11.5 - 15.0 % [facility] Hematocrit (Bld) [Volume fraction] 33.8 % Low 35 - 47 % [facility] Hemoglobin (Bld) [Mass/Vol] 11.9 g/dL 11.7 - 15.5 g/dL [facility] Interpretation and review of laboratory results Abnormal [facility] MCH (RBC) [Entitic mass] 33.6 pg 27 - 34 pg [facility] MCHC (RBC) [Mass/Vol] 35.2 g/dL 32 - 36 g/dL [facility] MCV (RBC) [Entitic vol] 96 fL 80 - 100 fL [facility] Platelet mean volume (Bld) [Entitic vol] 8.6 fL 7 - 12 fL [facility] Platelets (Bld) [#/Vol] 262 10*3/uL [facility] RBC (Bld) [#/Vol] 3.53 10*6/uL Low [facility] WBC corrected for nucl RBC Auto (Bld) [#/Vol] 7.4 [facility] COMPLETE BLOOD COUNTon 05-12 Erythrocyte distribution width (RBC) [Ratio] 12.7 % Normal 11.5-15.0 [facility] Comment on above: Performed By: #### T RAMOS NEFF, 51713-9 #### [facility] ([id number]) [address] [place] [address] Hematocrit (Bld) [Volume fraction] 33.8 % Low 35-47 [facility] Comment on above: Performed By: #### T RAMOS NEFF, 76051-6 #### [facility] ([id number]) [address], [address] [place] [address] Hemoglobin (Bld) [Mass/Vol] 11.9 g/dL Normal 11.7-15.5 [facility] Comment on above: Performed By: #### Adela NEFF CMP, #### [facility] ([id number]) [address], [address] [place] [address] MCH (RBC) [Entitic mass] 33.6 pg Normal 27-34 [facility] Comment on above: Performed By: #### Adela NEFF CMP, #### [facility] ([id number]) [address] [place] [address] MCHC (RBC) [Mass/Vol] 35.2 g/dL Normal 32-36 [facility] Comment on above: Performed By: #### Adela NEFF CMP, #### [facility] ([id number]) [address] [place] [address] MCV (RBC) [Entitic vol] 96 fL Normal 80-100 [facility] Comment on above: Performed By: #### T AISHWARYA CMP, #### [facility] ([id number]) [address] [place] [address] Platelet mean volume (Bld) [Entitic vol] 8.6 fL Normal 7-12 [facility] Comment on above: Performed By: #### T HYR CMP, #### [facility] ([id number]) [address] [place] [address] Platelets (Bld) [#/Vol] 262 10*3/uL Normal 150-450 [facility] Comment on above: Performed By: #### T HYR CMP, #### [facility] ([id number]) [address] [place] [address] RBC COUNT 3.53 X10E12/L Low 3.80-5.20 [facility] Comment on above: Performed By: #### Adela NEFF CMP, 89627-9 #### [facility] ([id number]) [address] [place] [address] WBC (Bld) [#/Vol] 7.4 10*3/uL Normal 4.0-11.0 [facility] Comment on above: Performed By: #### Adela NEFF CMP, 45506-3 #### [facility] ([id number]) [address], [address] [place] [address] COMPREHENSIVE METABOLIC PANE Brock 05-12-2024 Albumin [Mass/Vol] 3.2 g/dL Normal 3.2-5.3 [facility] Comment on above: Performed By: #### Adela NEFF CMP, #### [facility] ([id number]) [address], [address] [place] [address] ALP [Catalytic activity/Vol] 87 U/L Normal 39-130 [facility] Comment on above: Performed By: #### Adela NEFF CMP, 10643-1 #### [facility] ([id number]) [address], [address] [place] [address] ALT [Catalytic activity/Vol] 17 U/L Normal 0-31 [facility] Comment on above: Performed By: #### Adela NEFF CMP, 18066-6 #### [facility] ([id number]) [address] [place] [address] Anion gap [Moles/Vol] 8 mmol/L Normal 5-15 [facility] Comment on above: Performed By: #### Adela NEFF CMP, #### [facility] ([id number]) [address], [address] [place] [address] AST [Catalytic activity/Vol] 22 U/L Normal 0-41 [facility] Comment on above: Performed By: #### Adela NEFF CMP, #### [facility] ([id number]) [address] [place] [address] Bilirubin [Mass/Vol] 0.6 mg/dL Normal 0.3-1.2 [facility] Comment on above: Performed By: #### Adela NEFF CMP, #### [facility] ([id number]) [address] [place] [address] Calcium [Mass/Vol] 8.4 mg/dL Low 8.5-10.5 [facility] Comment on above: Performed By: #### Adela NEFF CMP, #### [facility] ([id number]) [address] [place] [address] Chloride [Moles/Vol] 98 mmol/L Normal 98-109 [facility] Comment on above: Performed By: #### Adela NEFF CMP, #### [facility] ([id number]) [address], [address] [place] [address] CO2 [Moles/Vol] 24 mmol/L Normal 22-32 [facility] Comment on above: Performed By: #### Adela NEFF CMP, #### [facility] ([id number]) [address] [place] [address] Creatinine [Mass/Vol] 0.46 mg/dL Normal 0.40-1.00 [facility] Comment on above: Result Comment: METH OD TRACEABLE TO IDMS STANDARD Performed By: #### Adela NEFF CMP, #### [facility] ([id number]) [address] [place] [address] eGFR (CKD-EPI) NON-RACE DEPENDENT >90 Normal >59 [facility] Comment on above: Result Comment: Reported eGFR is based on the CKD-EPI 2020 equation that does not use a race coefficient. Performed By: #### Adela NEFF CMP, #### [facility] ([id number]) [address], [address] [place] [address] Glucose [Mass/Vol] 98 mg/dL Normal 65-99 [facility] Comment on above: Performed By: #### Adela NEFF CMP, #### [facility] ([id number]) [address], [address] [place] [address] Potassium [Moles/Vol] 4.0 mmol/L Normal 3.5-5.0 [facility] Comment on above: Performed By: #### Adela NEFF CMP, #### [facility] ([id number]) [address] [place] [address] Protein [Mass/Vol] 6.0 g/dL Normal 6.0-8.0 [facility] Comment on above: Performed By: #### Adela NEFF CMP, #### [facility] ([id number]) [address], [address] [place] [address] Sodium [Moles/Vol] 130 mmol/L Low 134-146 [facility] Comment on above: Performed By: #### Adela NEFF CMP, #### [facility] ([id number]) [address] [place] [address] Urea nitrogen [Mass/Vol] 6 mg/dL Normal 5-27 [facility] Comment on above: Performed By: #### Adela NEFF CMP, #### [facility] ([id number]) [address] [place] [address] Calcium.ionized (Bld) [Mass/ Vol]on 05-12-2024 [facility] IONIZED CALCIUM 4.5 mg/dL Normal 4.5-5.3 [facility] Comment on above: Performed By: #### T AISHWARYA, [facility], [address]-6 #### [facility] ([id number]) [address], [address] [place] [address] Comprehensive metabolic pane brock 05-12-2024 Albumin [Mass/Vol] 3.2 g/dL 3.2 - 5.3 g/dL [facility] ALP [Catalytic activity/Vol] 87 U/L 39 - 130 U/L [facility] ALT No additional P-5'-P [Catalytic activity/Vol] 17 U/L 0 - 31 U/L [facility] Anion gap [Moles/Vol] 8 mmol/L 5 - 15 mmol/L [facility] AST [Catalytic activity/Vol] 22 U/L 0 - 41 U/L [facility] Bilirubin [Mass/Vol] 0.6 mg/dL 0.3 - 1 .2 mg/dL [facility] Calcium [Mass/Vol] 8.4 mg/dL Low 8.5 - 10. 5 mg/dL [facility] Chloride [Moles/Vol] 98 mmol/L 98 - 10 9 mmol/L [facility] CO2 [Moles/Vol] 24 mmol/L 22 - 32 mmol/L [facility] Creatinine [Mass/Vol] 0.46 mg/dL 0.40 - 1.00 mg/dL [facility] eGFR (CKD-EPI)non-race dependent - PINF [facility] Glucose [Mass/Vol] 98 mg/dL 65 - 99 mg/dL [facility] Interpretation and review of laboratory results Abnormal [facility] Potassium [Moles/Vol] 4 mmol/L 3.5 - 5.0 mmol/L [facility] Protein [Mass/Vol] 6 g/dL 6.0 - 8.0 g/dL [facility] Sodium [Moles/Vol] 130 mmol/L Low 134 - 146 mmol/L [facility] Urea nitrogen [Mass/Vol] 6 mg/dL 5 - 27 mg/dL [facility] ELECTROLYTESon 05-12-2024 Anion gap [Moles/Vol] 9 mmol/L Normal 5-15 [facility] Comment on above: Performed By: #### Adela NEFF CMP, #### [facility] ([id number]) [address] [place] [address] Chloride [Moles/Vol] 99 mmol/L Normal 98-109 [facility] Comment on above: Performed By: #### Adela NEFF CMP, #### [facility] ([id number]) [address] [place] [address] CO2 [Moles/Vol] 24 mmol/L Normal 22-32 [facility] Comment on above: Performed By: #### Adela NEFF CMP, #### [facility] ([id number]) [address] [place] [address] Potassium [Moles/Vol] 4.4 mmol/L Normal 3.5-5.0 [facility] Comment on above: Performed By: #### Adela NEFF CMP, #### [facility] ([id number]) [address] [place] [address] Sodium [Moles/Vol] 132 mmol/L Low 134-146 [facility] Comment on above: Performed By: #### Adela NEFF CMP, #### [facility] ([id number]) [address] [place] [address] Anion gap [Moles/Vol] 8 mmol/L Normal 5-15 [facility] Comment on above: Performed By: #### Adela NEFF CMP, 27432-2 #### [facility] ([id number]) [address] [place] [address] Chloride [Moles/Vol] 98 mmol/L Normal 98-109 [facility] Comment on above: Performed By: #### T RAMOS NEFF, 16391-2 #### [facility] ([id number]) [address] [place] [address] CO2 [Moles/Vol] 25 mmol/L Normal 22-32 [facility] Comment on above: Performed By: #### Adela NEFF CMP, #### [facility] ([id number]) [address] [place] [address] Potassium [Moles/Vol] 4.0 mmol/L Normal 3.5-5.0 [facility] Comment on above: Performed By: #### Adela NEFF CMP, 07669-8 #### [facility] ([id number]) [address] [place] [address] Sodium [Moles/Vol] 131 mmol/L Low 134-146 [facility] Comment on above: Performed By: #### Adela NEFF CMP, 61230-7 #### [facility] ([id number]) [address] [place] [address] Electrolyte panelon 05-13-19 25 Anion gap [Moles/Vol] 9 mmol/L 5 - 15 mmol/L [facility] Chloride [Moles/Vol] 99 mmol/L 98 - 10 9 mmol/L [facility] CO2 [Moles/Vol] 24 mmol/L 22 - 32 mmol/L [facility] Interpretation and review of laboratory results Abnormal [facility] Potassium [Moles/Vol] 4.4 mmol/L 3.5 - 5.0 mmol/L [facility] Sodium [Moles/Vol] 132 mmol/L Low 134 - 146 mmol/L [facility] Anion gap [Moles/Vol] 8 mmol/L 5 - 15 mmol/L [facility] Chloride [Moles/Vol] 98 mmol/L 98 - 10 9 mmol/L [facility] CO2 [Moles/Vol] 25 mmol/L 22 - 32 mmol/L [facility] Interpretation and review of laboratory results Abnormal [facility] Potassium [Moles/Vol] 4 mmol/L 3.5 - 5.0 mmol/L [facility] Sodium [Moles/Vol] 131 mmol/L Low 134 - 146 mmol/L [facility] Ionized calciumon 05-12-2024 Calcium.ionized (Bld) [Mass/Vol] 4.5 mg/dL 4.5 - 5.3 mg/dL [facility] MAGNESIUMon 05-12-2024 Magnesium [Mass/Vol] 2.9 mg/dL High 1.8-2.6 [facility] Comment on above: Performed By: #### Adela NEFF CMP, #### [facility] ([id number]) [address], [address] [place] [address] Magnesium [Mass/Vol] 1.8 mg/dL Normal 1.8-2.6 [facility] Comment on above: Performed By: #### Adela NEFF CMP, #### [facility] ([id number]) [address], [address] [place] [address] Magnesiumon 05-12-2024 Magnesium [Mass/Vol] 2.9 mg/dL High 1.8 - 2 .6 mg/dL [facility] Magnesium [Mass/Vol] 1.8 mg/dL 1.8 - 2 .6 mg/dL [facility] Magnesium [Mass/Vol]on 05-12 Interpretation and review of laboratory results Abnormal [facility] No Panel Informationon 05-12 [facility] PHOSPHORUSon 05-12-2024 Phosphate [Mass/Vol] 3.8 mg/dL Normal 2.4-4.9 [facility] Comment on above: Performed By: #### Adela NEFF CMP, #### [facility] ([id number]) [address], [address] [place] [address] Phosphoruson 05-12-2024 Phosphate [Mass/Vol] 3.8 mg/dL 2.4 - 4 .9 mg/dL [facility] CBC without diffon Erythrocyte distribution width (RBC) [Ratio] 12.8 % 11.5 - 15.0 % [facility] Hematocrit (Bld) [Volume fraction] 31.3 % Low 35 - 47 % [facility] Hemoglobin (Bld) [Mass/Vol] 11 g/dL Low 11.7 - 15.5 g/dL [facility] Interpretation and review of laboratory results Abnormal [facility] MCH (RBC) [Entitic mass] 33.1 pg 27 - 34 pg [facility] MCHC (RBC) [Mass/Vol] 35.3 g/dL 32 - 36 g/dL [facility] MCV (RBC) [Entitic vol] 94 fL 80 - 100 fL [facility] Platelet mean volume (Bld) [Entitic vol] 8.7 fL 7 - 12 fL [facility] Platelets (Bld) [#/Vol] 250 10*3/uL [facility] RBC (Bld) [#/Vol] 3.34 10*6/uL Low [facility] WBC corrected for nucl RBC Auto (Bld) [#/Vol] 8.5 [facility] COMPLETE BLOOD COUNTon 05-11 Erythrocyte distribution width (RBC) [Ratio] 12.8 % Normal 11.5-15.0 [facility] Comment on above: Performed By: #### 8 9579-7 #### [facility] ([id number]) [address], [address] [place] [address] Hematocrit (Bld) [Volume fraction] 31.3 % Low 35-47 [facility] Comment on above: Performed By: #### 8 9579-7 #### [facility] ([id number]) [address] [facility] [address], [address] [place] [address] Hemoglobin (Bld) [Mass/Vol] 11.0 g/dL Low 11.7-15.5 [facility] Comment on above: Performed By: #### 8 9579-7 #### [facility] ([id number]) [address], [address] [place] [address] MCH (RBC) [Entitic mass] 33.1 pg Normal 27-34 [facility] Comment on above: Performed By: #### 8 9579-7 #### [facility] ([id number]) [address], [address] [place], [place] [address] MCHC (RBC) [Mass/Vol] 35.3 g/dL Normal 32-36 [facility] Comment on above: Performed By: #### 8 9579-7 #### [facility] ([id number]) [address], [address] [place] [address] MCV (RBC) [Entitic vol] 94 fL Normal 80-100 [facility] Comment on above: Performed By: #### 8 9579-7 #### [facility] ([id number]) [address], [address] [place] [address] Platelet mean volume (Bld) [Entitic vol] 8.7 fL Normal 7-12 [facility] Comment on above: Performed By: #### 8 9579-7 #### [facility] ([id number]) [address], [address] [place] [address] Platelets (Bld) [#/Vol] 250 10*3/uL Normal 150-450 [facility] Comment on above: Performed By: #### 8 9579-7 #### [facility] ([id number]) [address], [address] [place], [place] [address] RBC COUNT 3.34 X10E12/L Low 3.80-5.20 [facility] Comment on above: Performed By: #### 8 9579-7 #### [facility] ([id number]) [address], [address] [place] [address] WBC (Bld) [#/Vol] 8.5 10*3/uL Normal 4.0-11.0 [facility] Comment on above: Performed By: #### 8 9579-7 #### [facility] ([id number]) [address], [address] [place], [place] [address] COMPREHENSIVE METABOLIC PANE Brock 05-11-2024 Albumin [Mass/Vol] 3.0 g/dL Low 3.2-5.3 [facility] Comment on above: Performed By: #### Adela NEFF CMP, 32436-2 #### [facility] ([id number]) [address], [address] [place] [address] ALP [Catalytic activity/Vol] 96 U/L Normal 39-130 [facility] Comment on above: Performed By: #### Adela NEFF CMP, 62878-9 #### [facility] ([id number]) [address], [address] [place] [address] ALT [Catalytic activity/Vol] 17 U/L Normal 0-31 [facility] Comment on above: Performed By: #### Adela NEFF CMP, #### [facility] ([id number]) [address], [address] [place] [address] Anion gap [Moles/Vol] 8 mmol/L Normal 5-15 [facility] Comment on above: Performed By: #### Adela NEFF CMP, #### [facility] ([id number]) [address], [address] [place] [address] AST [Catalytic activity/Vol] 24 U/L Normal 0-41 [facility] Comment on above: Performed By: #### Adela NEFF CMP, 81329-5 #### [facility] ([id number]) [address], [address] [place] [address] Bilirubin [Mass/Vol] 0.9 mg/dL Normal 0.3-1.2 [facility] Comment on above: Performed By: #### Adela NEFF [facility], [address]-1 #### [facility] ([id number]) [address], [address] [place] [address] Calcium [Mass/Vol] 7.8 mg/dL Low 8.5-10.5 [facility] Comment on above: Performed By: #### Adela NEFF [facility], #### [facility] ([id number]) [address], [address] [place] [address] Chloride [Moles/Vol] 96 mmol/L Low 98-109 [facility] Comment on above: Performed By: #### Adela NEFF [facility], #### [facility] ([id number]) [address], [address] [place] [address] CO2 [Moles/Vol] 24 mmol/L Normal 22-32 [facility] Comment on above: Performed By: #### Adela NEFF CMP, #### [facility] ([id number]) [address], [address] [place] [address] Creatinine [Mass/Vol] 0.38 mg/dL Low 0.40-1.00 [facility] Comment on above: Result Comment: METH OD TRACEABLE TO IDMS STANDARD Performed By: #### Adela NEFF CMP, #### [facility] ([id number]) [address], [address] [place] [address] eGFR (CKD-EPI) NON-RACE DEPENDENT >90 Normal >59 [facility] Comment on above: Result Comment: Reported eGFR is based on the CKD-EPI 2020 equation that does not use a race coefficient. Performed By: #### Adela NEFF CMP, #### [facility] ([id number]) [address], [address] [place] [address] Glucose [Mass/Vol] 87 mg/dL Normal 65-99 [facility] Comment on above: Performed By: #### Adela NEFF CMP, #### [facility] ([id number]) [address], [address] [place] [address] Potassium [Moles/Vol] 3.9 mmol/L Normal 3.5-5.0 [facility] Comment on above: Performed By: #### Adela NEFF CMP, #### [facility] ([id number]) [address], [address] [place] [address] Protein [Mass/Vol] 5.5 g/dL Low 6.0-8.0 [facility] Comment on above: Performed By: #### Adela NEFF CMP, #### [facility] ([id number]) [address], [address] [place] [address] Sodium [Moles/Vol] 128 mmol/L Low 134-146 [facility] Comment on above: Performed By: #### Adela NEFF CMP, #### [facility] ([id number]) [address], [address] [place] [address] Urea nitrogen [Mass/Vol] 7 mg/dL Normal 5-27 [facility] Comment on above: Performed By: #### Adela NEFF CMP, #### [facility] ([id number]) [address], [address] [place] [address] Calcium.ionized (Bld) [Mass/ Vol]on 05-11-2024 Interpretation and review of laboratory results Abnormal [facility] IONIZED CALCIUM 4.4 mg/dL Low 4.5-5.3 [facility] Comment on above: Performed By: #### 8 9579-7 #### [facility] ([id number]) [address], [address] [place] [address] Comprehensive metabolic pane brock 05-11-2024 Albumin [Mass/Vol] 3 g/dL Low 3.2 - 5.3 g/dL [facility] ALP [Catalytic activity/Vol] 96 U/L 39 - 130 U/L [facility] ALT No additional P-5'-P [Catalytic activity/Vol] 17 U/L 0 - 31 U/L [facility] Anion gap [Moles/Vol] 8 mmol/L 5 - 15 mmol/L [facility] AST [Catalytic activity/Vol] 24 U/L 0 - 41 U/L [facility] Bilirubin [Mass/Vol] 0.9 mg/dL 0.3 - 1 .2 mg/dL [facility] Calcium [Mass/Vol] 7.8 mg/dL Low 8.5 - 10. 5 mg/dL [facility] Chloride [Moles/Vol] 96 mmol/L Low 98 - 10 9 mmol/L [facility] CO2 [Moles/Vol] 24 mmol/L 22 - 32 mmol/L [facility] Creatinine [Mass/Vol] 0.38 mg/dL Low 0.40 - 1.00 mg/dL [facility] eGFR (CKD-EPI)non-race dependent - PINF [facility] Glucose [Mass/Vol] 87 mg/dL 65 - 99 mg/dL [facility] Interpretation and review of laboratory results Abnormal [facility] Potassium [Moles/Vol] 3.9 mmol/L 3.5 - 5.0 mmol/L [facility] Protein [Mass/Vol] 5.5 g/dL Low 6.0 - 8.0 g/dL [facility] Sodium [Moles/Vol] 128 mmol/L Low 134 - 146 mmol/L [facility] Urea nitrogen [Mass/Vol] 7 mg/dL 5 - 27 mg/dL [facility] ELECTROLYTESon 05-11-2024 Anion gap [Moles/Vol] 7 mmol/L Normal 5-15 [facility] Comment on above: Performed By: #### T AISHWARYA, [facility], 85279-5 #### [facility] ([id number]) [address] [facility], [address] [place] [address] Chloride [Moles/Vol] 96 mmol/L Low 98-109 [facility] Comment on above: Performed By: #### Adela NEFF CMP, #### [facility] ([id number]) [address], [address] [place] [address] CO2 [Moles/Vol] 24 mmol/L Normal 22-32 [facility] Comment on above: Performed By: #### Adela NEFF CMP, #### [facility] ([id number]) [address], [address] [place] [address] Potassium [Moles/Vol] 4.1 mmol/L Normal 3.5-5.0 [facility] Comment on above: Performed By: #### Adela NEFF CMP, #### [facility] ([id number]) [address], [address] [place] [address] Sodium [Moles/Vol] 127 mmol/L Low 134-146 [facility] Comment on above: Performed By: #### Adela NEFF CMP, #### [facility] ([id number]) [address], [address] [place] [address] Anion gap [Moles/Vol] 10 mmol/L Normal 5-15 [facility] Comment on above: Performed By: #### Adela NEFF CMP, #### [facility] ([id number]) [address], [address] [place] [address] Chloride [Moles/Vol] 95 mmol/L Low 98-109 [facility] Comment on above: Performed By: #### Adela NEFF CMP, #### [facility] ([id number]) [address], [address] [place] [address] CO2 [Moles/Vol] 23 mmol/L Normal 22-32 [facility] Comment on above: Performed By: #### Adela NEFF CMP, 85264-4 #### [facility] ([id number]) [address], [address] [place] [address] Potassium [Moles/Vol] 4.2 mmol/L Normal 3.5-5.0 [facility] Comment on above: Performed By: #### Adela NEFF [facility], [address]-3 #### [facility] ([id number]) [address], [address] [place] [address] Sodium [Moles/Vol] 128 mmol/L Low 134-146 [facility] Comment on above: Performed By: #### Adela NEFF [facility], 56291-9 #### [facility] ([id number]) [address], [address] [place] [address] Electrolyte panelon 05-12-19 Anion gap [Moles/Vol] 7 mmol/L 5 - 15 mmol/L [facility] Chloride [Moles/Vol] 96 mmol/L Low 98 - 10 9 mmol/L [facility] CO2 [Moles/Vol] 24 mmol/L 22 - 32 mmol/L [facility] Interpretation and review of laboratory results Abnormal [facility] Potassium [Moles/Vol] 4.1 mmol/L 3.5 - 5.0 mmol/L [facility] Sodium [Moles/Vol] 127 mmol/L Low 134 - 146 mmol/L [facility] Anion gap [Moles/Vol] 10 mmol/L 5 - 15 mmol/L [facility] Chloride [Moles/Vol] 95 mmol/L Low 98 - 10 9 mmol/L [facility] CO2 [Moles/Vol] 23 mmol/L 22 - 32 mmol/L [facility] Interpretation and review of laboratory results Abnormal [facility] Potassium [Moles/Vol] 4.2 mmol/L 3.5 - 5.0 mmol/L [facility] Sodium [Moles/Vol] 128 mmol/L Low 134 - 146 mmol/L [facility] Ionized calciumon 05-11-2024 Calcium.ionized (Bld) [Mass/Vol] 4.4 mg/dL Low 4.5 - 5.3 mg/dL [facility] MAGNESIUMon 05-11-2024 Magnesium [Mass/Vol] 1.8 mg/dL Normal 1.8-2.6 [facility] Comment on above: Performed By: #### T RAMOS NEFF, 63431-0 #### [facility] ([id number]) [address], [address] [place] [address] Magnesiumon 05-11-2024 Magnesium [Mass/Vol] 1.8 mg/dL 1.8 - 2 .6 mg/dL [facility] No Panel Informationon 05-11 [facility] PHOSPHORUSon 05-11-2024 Phosphate [Mass/Vol] 3.7 mg/dL Normal 2.4-4.9 [facility] Comment on above: Performed By: #### T RAMOS NEFF, 21989-7 #### [facility] ([id number]) [address], [address] [place] [address] Phosphoruson 05-11-2024 Phosphate [Mass/Vol] 3.7 mg/dL 2.4 - 4 .9 mg/dL [facility] CBC without diffon Erythrocyte distribution width (RBC) [Ratio] 12.8 % 11.5 - 15.0 % [facility] Hematocrit (Bld) [Volume fraction] 28.1 % Low 35 - 47 % [facility] Hemoglobin (Bld) [Mass/Vol] 10.1 g/dL Low 11.7 - 15.5 g/dL [facility] Interpretation and review of laboratory results Abnormal [facility] MCH (RBC) [Entitic mass] 33.7 pg 27 - 34 pg [facility] MCHC (RBC) [Mass/Vol] 35.8 g/dL 32 - 36 g/dL [facility] MCV (RBC) [Entitic vol] 94 fL 80 - 100 fL [facility] Platelet mean volume (Bld) [Entitic vol] 8.8 fL 7 - 12 fL [facility] Platelets (Bld) [#/Vol] 170 10*3/uL [facility] RBC (Bld) [#/Vol] 2.98 10*6/uL Low [facility] WBC corrected for nucl RBC Auto (Bld) [#/Vol] 6.9 [facility] COMPLETE BLOOD COUNTon 05-10 Erythrocyte distribution width (RBC) [Ratio] 12.8 % Normal 11.5-15.0 [facility] Comment on above: Performed By: #### I CODE #### [facility] ([id number]) [address] [place] [address] Hematocrit (Bld) [Volume fraction] 28.1 % Low 35-47 [facility] Comment on above: Performed By: #### I CODE #### [facility] ([id number]) [address] [place] [address] Hemoglobin (Bld) [Mass/Vol] 10.1 g/dL Low 11.7-15.5 [facility] Comment on above: Performed By: #### I CODE #### [facility] ([id number]) [address] [place] [address] MCH (RBC) [Entitic mass] 33.7 pg Normal 27-34 [facility] Comment on above: Performed By: #### I CODE #### [facility] ([id number]) [address] [place] [address] MCHC (RBC) [Mass/Vol] 35.8 g/dL Normal 32-36 [facility] Comment on above: Performed By: #### I CODE #### [facility] ([id number]) [address] [place] [address] MCV (RBC) [Entitic vol] 94 fL Normal 80-100 [facility] Comment on above: Performed By: #### I CODE #### [facility] ([id number]) [address] [place] [address] Platelet mean volume (Bld) [Entitic vol] 8.8 fL Normal 7-12 [facility] Comment on above: Performed By: #### I CODE #### [facility] ([id number]) [address] [place] [address] Platelets (Bld) [#/Vol] 170 10*3/uL Normal 150-450 [facility] Comment on above: Performed By: #### I CODE #### [facility] ([id number]) [address] [place] [address] RBC COUNT 2.98 X10E12/L Low 3.80-5.20 [facility] Comment on above: Performed By: #### I CODE #### [facility] ([id number]) [address] [place] [address] WBC (Bld) [#/Vol] 6.9 10*3/uL Normal 4.0-11.0 [facility] Comment on above: Performed By: #### I CODE #### [facility] ([id number]) [address] [place] [address] COMPREHENSIVE METABOLIC PANE Brock 05-10-2024 Albumin [Mass/Vol] 3.0 g/dL Low 3.2-5.3 [facility] Comment on above: Performed By: #### I CODE #### [facility] ([id number]) [address] [place] [address] ALP [Catalytic activity/Vol] 102 U/L Normal 39-130 [facility] Comment on above: Performed By: #### I CODE #### [facility] ([id number]) [address] [place] [address] ALT [Catalytic activity/Vol] 23 U/L Normal 0-31 [facility] Comment on above: Performed By: #### I CODE #### [facility] ([id number]) [address] [place] [address] Anion gap [Moles/Vol] 8 mmol/L Normal 5-15 [facility] Comment on above: Performed By: #### I CODE #### [facility] ([id number]) [address] [place] [address] AST [Catalytic activity/Vol] 40 U/L Normal 0-41 [facility] Comment on above: Performed By: #### I CODE #### [facility] ([id number]) [address] [place] [address] Bilirubin [Mass/Vol] 0.8 mg/dL Normal 0.3-1.2 [facility] Comment on above: Performed By: #### I CODE #### [facility] ([id number]) [address] [place] [address] Calcium [Mass/Vol] 8.0 mg/dL Low 8.5-10.5 [facility] Comment on above: Performed By: #### I CODE #### [facility] ([id number]) [address] [place] [address] Chloride [Moles/Vol] 96 mmol/L Low 98-109 [facility] Comment on above: Performed By: #### I CODE #### [facility] ([id number]) [address] [place] [address] CO2 [Moles/Vol] 26 mmol/L Normal 22-32 [facility] Comment on above: Performed By: #### I CODE #### [facility] ([id number]) [address] [place] [address] Creatinine [Mass/Vol] 0.42 mg/dL Normal 0.40-1.00 [facility] Comment on above: Result Comment: METH OD TRACEABLE TO IDMS STANDARD Performed By: #### I CODE #### [facility] ([id number]) [address] [place] [address] eGFR (CKD-EPI) NON-RACE DEPENDENT >90 Normal >59 [facility] Comment on above: Result Comment: Reported eGFR is based on the CKD-EPI 2020 equation that does not use a race coefficient. Performed By: #### I CODE #### [facility] ([id number]) [address] [place] [address] Glucose [Mass/Vol] 91 mg/dL Normal 65-99 [facility] Comment on above: Performed By: #### I CODE #### [facility] ([id number]) [address] [place] [address] Potassium [Moles/Vol] 4.0 mmol/L Normal 3.5-5.0 [facility] Comment on above: Performed By: #### I CODE #### [facility] ([id number]) [address] [place] [address] Protein [Mass/Vol] 5.3 g/dL Low 6.0-8.0 [facility] Comment on above: Performed By: #### I CODE #### [facility] ([id number]) [address] [place] [address] Sodium [Moles/Vol] 130 mmol/L Low 134-146 [facility] Comment on above: Performed By: #### I CODE #### [facility] ([id number]) [address] [place] [address] Urea nitrogen [Mass/Vol] 8 mg/dL Normal 5-27 [facility] Comment on above: Performed By: #### I CODE #### [facility] ([id number]) [address] [place] [address] Calcium.ionized (Bld) [Mass/ Vol]on 05-10-2024 [facility] IONIZED CALCIUM 4.6 mg/dL Normal 4.5-5.3 [facility] Comment on above: Performed By: #### I CODE #### [facility] ([id number]) [address] [place] [address] [facility] IONIZED CALCIUM 4.5 mg/dL Normal 4.5-5.3 [facility] Comment on above: Performed By: #### I CODE #### [facility] ([id number]) [address] [place] [address] Cardiac Invasiveon XPER [facility] Cardiac echo study Procedure on 05-10-2024 [facility] Radiology Study observation (narrative) [facility] Cardiac echo study Procedure Ordered By: Shant Doss on 05-10-2024 [facility] Work Phone: Cobalamin (Vitamin B12) [Mas s/Vol]on 05-10-2024 [facility] Comprehensive metabolic pane brock 05-10-2024 Albumin [Mass/Vol] 3 g/dL Low 3.2 - 5.3 g/dL [facility] ALP [Catalytic activity/Vol] 102 U/L 39 - 130 U/L [facility] ALT No additional P-5'-P [Catalytic activity/Vol] 23 U/L 0 - 31 U/L [facility] Anion gap [Moles/Vol] 8 mmol/L 5 - 15 mmol/L [facility] AST [Catalytic activity/Vol] 40 U/L 0 - 41 U/L [facility] Bilirubin [Mass/Vol] 0.8 mg/dL 0.3 - 1 .2 mg/dL [facility] Calcium [Mass/Vol] 8 mg/dL Low 8.5 - 10. 5 mg/dL [facility] Chloride [Moles/Vol] 96 mmol/L Low 98 - 10 9 mmol/L [facility] CO2 [Moles/Vol] 26 mmol/L 22 - 32 mmol/L [facility] Creatinine [Mass/Vol] 0.42 mg/dL 0.40 - 1.00 mg/dL [facility] eGFR (CKD-EPI)non-race dependent - PINF [facility] Glucose [Mass/Vol] 91 mg/dL 65 - 99 mg/dL [facility] Interpretation and review of laboratory results Abnormal [facility] Potassium [Moles/Vol] 4 mmol/L 3.5 - 5.0 mmol/L [facility] Protein [Mass/Vol] 5.3 g/dL Low 6.0 - 8.0 g/dL [facility] Sodium [Moles/Vol] 130 mmol/L Low 134 - 146 mmol/L [facility] Urea nitrogen [Mass/Vol] 8 mg/dL 5 - 27 mg/dL [facility] EEGon 05-10-2024 MANUALLY TRANSCRIBED RESULTS EEGOrdered By: Kat Ríos on 05-10-2024 [facility] Work Phone: ELECTROLYTESon 05-10-2024 Anion gap [Moles/Vol] 9 mmol/L Normal 5-15 [facility] Comment on above: Performed By: #### 8 9579-7 #### [facility] ([id number]) [address], [address] [place] [address] Chloride [Moles/Vol] 95 mmol/L Low 98-109 [facility] Comment on above: Performed By: #### 8 9579-7 #### [facility] ([id number]) [address], [address] [place] [address] CO2 [Moles/Vol] 24 mmol/L Normal 22-32 [facility] Comment on above: Performed By: #### 8 9579-7 #### [facility] ([id number]) [address], [address] [place] [address] Potassium [Moles/Vol] 4.4 mmol/L Normal 3.5-5.0 [facility] Comment on above: Performed By: #### 8 9579-7 #### [facility] ([id number]) [address], [address] [place] [address] Sodium [Moles/Vol] 128 mmol/L Low 134-146 [facility] Comment on above: Performed By: #### 8 9579-7 #### [facility] ([id number]) [address] [place] [address] Anion gap [Moles/Vol] 6 mmol/L Normal 5-15 [facility] [facility] Comment on above: Performed By: #### 8 9579-7 #### [facility] ([id number]) [address] [place], [place] [address] Chloride [Moles/Vol] 97 mmol/L Low 98-109 [facility] Comment on above: Performed By: #### 8 9579-7 #### [facility] ([id number]) [address], [address] [place], [place] [address] CO2 [Moles/Vol] 26 mmol/L Normal 22-32 [facility] Comment on above: Performed By: #### 8 9579-7 #### [facility] ([id number]) [address], [address] [place], [place] [address] Potassium [Moles/Vol] 3.8 mmol/L Normal 3.5-5.0 [facility] Comment on above: Performed By: #### 8 9579-7 #### [facility] ([id number]) [address], [address] [place] [address] Sodium [Moles/Vol] 129 mmol/L Low 134-146 [facility] Comment on above: Performed By: #### 8 9579-7 #### [facility] ([id number]) [address], [address] [place] [address] Anion gap [Moles/Vol] 7 mmol/L Normal 5-15 [facility] Comment on above: Performed By: #### I CODE #### [facility] ([id number]) [address] [facility] [place] [place] [address] Chloride [Moles/Vol] 97 mmol/L Low 98-109 [facility] Comment on above: Performed By: #### I CODE #### [facility] ([id number]) [address] [place] [address] CO2 [Moles/Vol] 26 mmol/L Normal 22-32 [facility] Comment on above: Performed By: #### I CODE #### [facility] ([id number]) [address] [place] [address] Potassium [Moles/Vol] 3.8 mmol/L Normal 3.5-5.0 [facility] Comment on above: Performed By: #### I CODE #### [facility] ([id number]) [address] [facility] [place] [place] [address] Sodium [Moles/Vol] 130 mmol/L Low 134-146 [facility] Comment on above: Performed By: #### I CODE #### [facility] ([id number]) [address] [place] [address] Anion gap [Moles/Vol] 7 mmol/L Normal 5-15 [facility] Comment on above: Performed By: #### I CODE #### [facility] ([id number]) [address] [facility] [place] [place] [address] Chloride [Moles/Vol] 96 mmol/L Low 98-109 [facility] Comment on above: Performed By: #### I CODE #### [facility] ([id number]) [address] [facility] [place] [place] [address] CO2 [Moles/Vol] 28 mmol/L Normal 22-32 [facility] Comment on above: Performed By: #### I CODE #### [facility] ([id number]) [address] [place] [address] Potassium [Moles/Vol] 4.0 mmol/L Normal 3.5-5.0 [facility] Comment on above: Performed By: #### I CODE #### [facility] ([id number]) [address] [place] [address] Sodium [Moles/Vol] 131 mmol/L Low 134-146 [facility] Comment on above: Performed By: #### I CODE #### [facility] ([id number]) [address] [place] [address] Electrolyte panelon 05-11-19 25 Anion gap [Moles/Vol] 9 mmol/L 5 - 15 mmol/L [facility] Chloride [Moles/Vol] 95 mmol/L Low 98 - 10 9 mmol/L [facility] CO2 [Moles/Vol] 24 mmol/L 22 - 32 mmol/L [facility] Interpretation and review of laboratory results Abnormal [facility] Potassium [Moles/Vol] 4.4 mmol/L 3.5 - 5.0 mmol/L [facility] Sodium [Moles/Vol] 128 mmol/L Low 134 - 146 mmol/L [facility] Anion gap [Moles/Vol] 6 mmol/L 5 - 15 mmol/L [facility] Chloride [Moles/Vol] 97 mmol/L Low 98 - 10 9 mmol/L [facility] CO2 [Moles/Vol] 26 mmol/L 22 - 32 mmol/L [facility] Interpretation and review of laboratory results Abnormal [facility] Potassium [Moles/Vol] 3.8 mmol/L 3.5 - 5.0 mmol/L [facility] Sodium [Moles/Vol] 129 mmol/L Low 134 - 146 mmol/L [facility] Anion gap [Moles/Vol] 7 mmol/L 5 - 15 mmol/L [facility] Chloride [Moles/Vol] 97 mmol/L Low 98 - 10 9 mmol/L [facility] CO2 [Moles/Vol] 26 mmol/L 22 - 32 mmol/L [facility] Interpretation and review of laboratory results Abnormal [facility] Potassium [Moles/Vol] 3.8 mmol/L 3.5 - 5.0 mmol/L [facility] Sodium [Moles/Vol] 130 mmol/L Low 134 - 146 mmol/L [facility] Anion gap [Moles/Vol] 7 mmol/L 5 - 15 mmol/L [facility] Chloride [Moles/Vol] 96 mmol/L Low 98 - 10 9 mmol/L [facility] CO2 [Moles/Vol] 28 mmol/L 22 - 32 mmol/L [facility] Interpretation and review of laboratory results Abnormal [facility] Potassium [Moles/Vol] 4 mmol/L 3.5 - 5.0 mmol/L [facility] Sodium [Moles/Vol] 131 mmol/L Low 134 - 146 mmol/L [facility] Folateon 05-10-2024 Folate [Mass/Vol] 4.2 ng/mL Low 5.8 - PINF ng/mL [facility] Folate [Mass/Vol] 4.1 ng/mL Low 5.8 - PINF ng/mL [facility] Folate [Mass/Vol]on 05-11-19 Interpretation and review of laboratory results Abnormal [facility] FOLIC ACID 4.2 ng/mL Low >5.8 [facility] Comment on above: Result Comment: NEW REFERENCE RANGE Performed By: #### 8 9579-7 #### [facility] ([id number]) [address] [place] [address] Interpretation and review of laboratory results Abnormal [facility] FOLIC ACID 4.1 ng/mL Low >5.8 [facility] Comment on above: Result Comment: NEW REFERENCE RANGE Performed By: #### 8 9579-7 #### [facility] ([id number]) [address] [place] [id number] Ionized calciumon 05-10-2024 Calcium.ionized (Bld) [Mass/Vol] 4.6 mg/dL 4.5 - 5.3 mg/dL [facility] Calcium.ionized (Bld) [Mass/Vol] 4.5 mg/dL 4.5 - 5.3 mg/dL [facility] Ionized magnesiumon 05-11-19 Magnesium Ionized ISE (Bld) [Moles/Vol] 0.64 mmol/L 0.45 - 0.74 mmol/L [facility] MAGNESIUMon 05-10-2024 Magnesium [Mass/Vol] 1.8 mg/dL Normal 1.8-2.6 [facility] Comment on above: Performed By: #### I CODE #### [facility] ([id number]) [address] [place] [address] Magnesiumon 05-10-2024 Magnesium [Mass/Vol] 1.8 mg/dL 1.8 - 2 .6 mg/dL [facility] Magnesium Ionized ISE (Bld) [Moles/Vol]on 05-10-2024 [facility] Magnesium [Moles/Vol] 0.64 mmol/L Normal 0.45-0.[address] [facility] Comment on above: Result Comment: NEW REFERENCE RANGE Performed By: #### 8 9579-7 #### [facility] ([id number]) [address] [facility], [address] [place] [address] No Panel Informationon 05-10 [facility] PHOSPHORUSon 05-10-2024 Phosphate [Mass/Vol] 3.1 mg/dL Normal 2.4-4.9 [facility] Comment on above: Performed By: #### I CODE #### [facility] ([id number]) [address] [place] [address] Phosphoruson 05-10-2024 Phosphate [Mass/Vol] 3.1 mg/dL 2.4 - 4 .9 mg/dL [facility] Thiamine (Bld) [Moles/Vol]on 05-10-2024 Thiamin (Vitamin B1), WB 68 nmol/L Low 70-180 [facility] Comment on above: Result Comment: NOTE ADDITIONAL INFORMATION This test was developed and its performance characteristics determined by [facility] in a manner consistent with CLIA requirements. This test has not been cleared or approved by the U.S. Food and Drug Administration. Test Performed by: [facility] [address] [place] [address] Ambulatory Care Nurse: Ester Macdonald Ph.D.; CLIA# [id number] Performed By: #### 8 9579-7 #### [facility] ([id number]) [address], [address] [place] [address] Thiamin (Vitamin B1), WB 56 nmol/L Low 70-180 [facility] Comment on above: Result Comment: NOTE ADDITIONAL INFORMATION This test was developed and its performance characteristics determined by [facility] in a manner consistent with CLIA requirements. This test has not been cleared or approved by the U.S. Food and Drug Administration. Test Performed by: [facility] [address] [place] [address] Ambulatory Care Nurse: Ester Macdonald Ph.D.; CLIA# [id number] Performed By: #### 8 9579-7 #### [facility] ([id number]) [address] [place] [address] VITAMIN B12on 05-10-2024 Cobalamin (Vitamin B12) [Mass/Vol] 295 pg/mL Normal 180-914 [facility] Comment on above: Performed By: #### 8 9579-7 #### [facility] ([id number]) [address] [place] [address] Vitamin B12on 05-10-2024 Cobalamin (Vitamin B12) [Mass/Vol] 295 pg/mL 180 - 914 pg/mL [facility] CBC without diffon Interpretation and review of laboratory results Abnormal [facility] RBC (Bld) [#/Vol] 2.97 10*6/uL Low [facility] WBC corrected for nucl RBC Auto (Bld) [#/Vol] 7.1 [facility] COMPLETE BLOOD COUNTon 05-09 Erythrocyte distribution width (RBC) [Ratio] 12.7 % Normal 11.5-15.0 [facility] Comment on above: Performed By: #### Shira WOODALL, PINR, 33530-7 #### [facility] ([id number]) [address] [place] [address] Hematocrit (Bld) [Volume fraction] 28.6 % Low 35-47 [facility] Comment on above: Performed By: #### Shira WOODALL, PINR, 36992-7 #### [facility] ([id number]) [address], [address] [place] [address] Hemoglobin (Bld) [Mass/Vol] 10.1 g/dL Low 11.7-15.5 [facility] Comment on above: Performed By: #### Shira WOODALL, PINR, 95638-4 #### [facility] ([id number]) [address] [place] [address] MCH (RBC) [Entitic mass] 33.9 pg Normal 27-34 [facility] Comment on above: Performed By: #### Shira WOODALL, PINR, 29233-8 #### [facility] ([id number]) [address] [place] [address] MCHC (RBC) [Mass/Vol] 35.2 g/dL Normal 32-36 [facility] Comment on above: Performed By: #### Shira WOODALL, PINR, 22342-2 #### [facility] ([id number]) [address] [place] [address] MCV (RBC) [Entitic vol] 96 fL Normal 80-100 [facility] Comment on above: Performed By: #### Shira WOODALL, PINR, 96749-7 #### [facility] ([id number]) [address], [address] [place] [address] Platelet mean volume (Bld) [Entitic vol] 8.9 fL Normal 7-12 [facility] Comment on above: Performed By: #### Shira WOODALL, PINR, 37471-4 #### [facility] ([id number]) [address], [address] [place] [address] Platelets (Bld) [#/Vol] 138 10*3/uL Low 150-450 [facility] Comment on above: Performed By: #### C TALISHA, PINR, 75197-3 #### [facility] ([id number]) [address], [address] [place] [address] RBC COUNT 2.97 X10E12/L Low 3.80-5.20 [facility] Comment on above: Performed By: #### C TALISHA, PINR, 67070-3 #### [facility] ([id number]) [address] [address] [place] [address] WBC (Bld) [#/Vol] 7.1 10*3/uL Normal 4.0-11.0 [facility] Comment on above: Performed By: #### Shira WOODALL, PINR, 41539-3 #### [facility] ([id number]) [address] [place] [address] COMPREHENSIVE METABOLIC PANE Brock 05-09-2024 ALP [Catalytic activity/Vol] 52 U/L Normal 39-130 [facility] Comment on above: Performed By: #### C BCA, PINR, 11467-2 #### [facility] ([id number]) [address] [place] [address] Anion gap [Moles/Vol] 5 mmol/L Normal 5-15 [facility] Comment on above: Performed By: #### C BCA, PINR, 65639-3 #### [facility] ([id number]) [address] [place] [address] AST [Catalytic activity/Vol] 44 U/L High 0-41 [facility] Comment on above: Performed By: #### Shira BCA, PINR, 72749-1 #### [facility] ([id number]) [address] [place] [address] Bilirubin [Mass/Vol] 0.8 mg/dL Normal 0.3-1.2 [facility] Comment on above: Performed By: #### Shira WOODALL PINR, 58631-1 #### [facility] ([id number]) [address] [place] [address] Calcium [Mass/Vol] 7.8 mg/dL Low 8.5-10.5 [facility] Comment on above: Performed By: #### Shira WOODALL, PINR, 62786-8 #### [facility] ([id number]) [address] [place] [address] Chloride [Moles/Vol] 96 mmol/L Low 98-109 [facility] Comment on above: Performed By: #### Shira WOODALL PINR, 30023-2 #### [facility] ([id number]) [address] [place] [address] CO2 [Moles/Vol] 28 mmol/L Normal 22-32 [facility] Comment on above: Performed By: #### Shira WOODALL PINR, 03820-2 #### [facility] ([id number]) [address] [place] [address] Creatinine [Mass/Vol] 0.37 mg/dL Low 0.40-1.00 [facility] Comment on above: Result Comment: METH OD TRACEABLE TO IDMS STANDARD Performed By: #### Shira WOODALL PINR, 88645-9 #### [facility] ([id number]) [address] [place] [address] Glucose [Mass/Vol] 86 mg/dL Normal 65-99 [facility] Comment on above: Performed By: #### Shira WOODALL, PINR, 14067-3 #### [facility] ([id number]) [address], [address] [place] [address] Potassium [Moles/Vol] 3.9 mmol/L Normal 3.5-5.0 [facility] Comment on above: Performed By: #### C BCA, PINR, 26283-2 #### [facility] ([id number]) [address] [place] [address] Protein [Mass/Vol] 5.2 g/dL Low 6.0-8.0 [facility] Comment on above: Performed By: #### C BCA, PINR, 32080-1 #### [facility] ([id number]) [address] [place] [address] Sodium [Moles/Vol] 129 mmol/L Low 134-146 [facility] Comment on above: Performed By: #### C BCA, PINR, 85946-1 #### [facility] ([id number]) [address] [place] [address] Urea nitrogen [Mass/Vol] 8 mg/dL Normal 5-27 [facility] Comment on above: Performed By: #### C BCA, PINR, 15408-9 #### [facility] ([id number]) [address] [place] [address] Albumin [Mass/Vol] 3.0 g/dL Low 3.2-5.3 [facility] Comment on above: Performed By: #### C BCA, PINR, 18696-8 #### [facility] ([id number]) [address] [place] [address] ALT [Catalytic activity/Vol] 15 U/L Normal 0-31 [facility] Comment on above: Performed By: #### C BCA, PINR, 31796-2 #### [facility] ([id number]) [address] [place] [address] eGFR (CKD-EPI) NON-RACE DEPENDENT >90 Normal >59 [facility] Comment on above: Result Comment: Reported eGFR is based on the CKD-EPI 2020 equation that does not use a race coefficient. Performed By: #### C BCA, PINR, 80384-2 #### [facility] ([id number]) [address] [place] [address] Calcium.ionized (Bld) [Mass/ Vol]on 05-09-2024 Interpretation and review of laboratory results Abnormal [facility] IONIZED CALCIUM 4.3 mg/dL Low 4.5-5.3 [facility] Comment on above: Performed By: #### C BCA, PINR, 24377-6 #### [facility] ([id number]) [address] [place] [address] Interpretation and review of laboratory results Abnormal [facility] Cardiac Invasiveon Radiology Study observation (narrative) [facility] Comprehensive metabolic pane brock 05-09-2024 Albumin [Mass/Vol] 3 g/dL Low 3.2 - 5.3 g/dL [facility] ALT No additional P-5'-P [Catalytic activity/Vol] 15 U/L 0 - 31 U/L [facility] eGFR (CKD-EPI)non-race dependent - PINF [facility] Interpretation and review of laboratory results Abnormal [facility] ELECTROLYTESon 05-09-2024 Anion gap [Moles/Vol] 6 mmol/L Normal 5-15 [facility] Comment on above: Performed By: #### I CODE #### [facility] ([id number]) [address] [place] [address] Chloride [Moles/Vol] 96 mmol/L Low 98-109 [facility] Comment on above: Performed By: #### I CODE #### [facility] ([id number]) [address] [place] [address] CO2 [Moles/Vol] 29 mmol/L Normal 22-32 [facility] Comment on above: Performed By: #### I CODE #### [facility] ([id number]) [address] [place] [address] Potassium [Moles/Vol] 4.3 mmol/L Normal 3.5-5.0 [facility] Comment on above: Performed By: #### I CODE #### [facility] ([id number]) [address] [facility] [place] [address] Sodium [Moles/Vol] 131 mmol/L Low 134-146 [facility] Comment on above: Performed By: #### I CODE #### [facility] ([id number]) [address] [facility] [place] [address] Anion gap [Moles/Vol] 7 mmol/L Normal 5-15 [facility] Comment on above: Performed By: #### I CODE #### [facility] ([id number]) [address] [facility] [place] [address] Chloride [Moles/Vol] 97 mmol/L Low 98-109 [facility] Comment on above: Performed By: #### I CODE #### [facility] ([id number]) [address] [facility] [place] [place] [address] CO2 [Moles/Vol] 26 mmol/L Normal 22-32 [facility] Comment on above: Performed By: #### I CODE #### [facility] ([id number]) [address] [facility] [place] [place] [address] Potassium [Moles/Vol] 4.0 mmol/L Normal 3.5-5.0 [facility] Comment on above: Performed By: #### I CODE #### [facility] ([id number]) [address] [place] [address] Sodium [Moles/Vol] 130 mmol/L Low 134-146 [facility] Comment on above: Performed By: #### I CODE #### [facility] ([id number]) [address] [facility] [place] [place] [address] Anion gap [Moles/Vol] 10 mmol/L Normal 5-15 [facility] Comment on above: Performed By: #### C BCA, PINR, 76830-6 #### [facility] ([id number]) [address] [place] [address] Chloride [Moles/Vol] 99 mmol/L Normal 98-109 [facility] Comment on above: Performed By: #### C BCA, PINR, 38430-5 #### [facility] ([id number]) [address] [place] [address] CO2 [Moles/Vol] 22 mmol/L Normal 22-32 [facility] Comment on above: Performed By: #### C BCA, PINR, 04349-7 #### [facility] ([id number]) [address] [place] [address] Potassium [Moles/Vol] 4.1 mmol/L Normal 3.5-5.0 [facility] Comment on above: Performed By: #### C BCA, PINR, 65979-9 #### [facility] ([id number]) [address] [place] [address] Sodium [Moles/Vol] 131 mmol/L Low 134-146 [facility] Comment on above: Performed By: #### C BCA, PINR, 11283-7 #### [facility] ([id number]) [address] [place] [address] Anion gap [Moles/Vol] 6 mmol/L Normal 5-15 [facility] Comment on above: Performed By: #### C BCA, PINR, 31820-6 #### [facility] ([id number]) [address] [place] [address] Chloride [Moles/Vol] 96 mmol/L Low 98-109 [facility] Comment on above: Performed By: #### C BCA, PINR, 64135-6 #### [facility] ([id number]) [address] [place] [address] CO2 [Moles/Vol] 28 mmol/L Normal 22-32 [facility] Comment on above: Performed By: #### C BCA, PINR, 40604-5 #### [facility] ([id number]) [address] [place] [address] Potassium [Moles/Vol] 4.1 mmol/L Normal 3.5-5.0 [facility] Comment on above: Performed By: #### Shira BCA, PINR, 30620-1 #### [facility] ([id number]) [address] [place] [address] Sodium [Moles/Vol] 130 mmol/L Low 134-146 [facility] Comment on above: Performed By: #### Shira BCA, PINR, 14870-1 #### [facility] ([id number]) [address] [place] [address] Electrolyte panelon 05-10-19 25 Anion gap [Moles/Vol] 6 mmol/L 5 - 15 mmol/L [facility] Chloride [Moles/Vol] 96 mmol/L Low 98 - 10 9 mmol/L [facility] CO2 [Moles/Vol] 29 mmol/L 22 - 32 mmol/L [facility] Interpretation and review of laboratory results Abnormal [facility] Potassium [Moles/Vol] 4.3 mmol/L 3.5 - 5.0 mmol/L [facility] Sodium [Moles/Vol] 131 mmol/L Low 134 - 146 mmol/L [facility] Anion gap [Moles/Vol] 7 mmol/L 5 - 15 mmol/L [facility] Chloride [Moles/Vol] 97 mmol/L Low 98 - 10 9 mmol/L [facility] CO2 [Moles/Vol] 26 mmol/L 22 - 32 mmol/L [facility] Interpretation and review of laboratory results Abnormal [facility] Potassium [Moles/Vol] 4 mmol/L 3.5 - 5.0 mmol/L [facility] Sodium [Moles/Vol] 130 mmol/L Low 134 - 146 mmol/L [facility] Anion gap [Moles/Vol] 10 mmol/L 5 - 15 mmol/L [facility] Chloride [Moles/Vol] 99 mmol/L 98 - 10 9 mmol/L [facility] CO2 [Moles/Vol] 22 mmol/L 22 - 32 mmol/L [facility] Interpretation and review of laboratory results Abnormal [facility] Potassium [Moles/Vol] 4.1 mmol/L 3.5 - 5.0 mmol/L [facility] Sodium [Moles/Vol] 131 mmol/L Low 134 - 146 mmol/L [facility] Anion gap [Moles/Vol] 6 mmol/L 5 - 15 mmol/L [facility] Chloride [Moles/Vol] 96 mmol/L Low 98 - 10 9 mmol/L [facility] CO2 [Moles/Vol] 28 mmol/L 22 - 32 mmol/L [facility] Interpretation and review of laboratory results Abnormal [facility] Potassium [Moles/Vol] 4.1 mmol/L 3.5 - 5.0 mmol/L [facility] Sodium [Moles/Vol] 130 mmol/L Low 134 - 146 mmol/L [facility] Ionized calciumon 05-09-2024 Calcium.ionized (Bld) [Mass/Vol] 4.3 mg/dL Low 4.5 - 5.3 mg/dL [facility] Calcium.ionized (Bld) [Mass/Vol] 4.3 mg/dL Low 4.5 - 5.3 mg/dL [facility] Ionized magnesiumon 05-10-19 25 Magnesium Ionized ISE (Bld) [Moles/Vol] 0.66 mmol/L 0.45 - 0.74 mmol/L [facility] Laboratory - Chemistry and C hemistry - challengeon 05-09-2024 Magnesium [Mass/Vol] 1.9 mg/dL Normal 1.8-2.6 [facility] Comment on above: Performed By: #### C BCA, PINR, [id number] #### [facility] ([id number]) [address], [address] [place] [address] Phosphate [Mass/Vol] 2.5 mg/dL Normal 2.4-4.9 [facility] Comment on above: Performed By: #### C KEVIN WOODALL, [id number] #### [facility] ([id number]) [address], [address] [place] [address] Magnesium Ionized ISE (Bld) [Moles/Vol]on 05-09-2024 Magnesium [Moles/Vol] 0.66 mmol/L Normal 0.45-0.[address] [facility] Comment on above: Result Comment: NEW REFERENCE RANGE Performed By: #### C KEVIN WOODALL, [id number] #### [facility] ([id number]) [address], [address] [place] [address] No Panel Informationon 05-09 [facility] Anti XA unfractionated hepar inon 05-08-2024 Heparin unfractionated Chromogenic method Qn (PPP) Low [facility] CBC without diffon Erythrocyte distribution width (RBC) [Ratio] 13.2 % 11.5 - 15.0 % [facility] Hematocrit (Bld) [Volume fraction] 34 % Low 35 - 47 % [facility] Hemoglobin (Bld) [Mass/Vol] 12 g/dL 11.7 - 15.5 g/dL [facility] Interpretation and review of laboratory results Abnormal [facility] MCH (RBC) [Entitic mass] 33.2 pg 27 - 34 pg [facility] MCHC (RBC) [Mass/Vol] 35.5 g/dL 32 - 36 g/dL [facility] MCV (RBC) [Entitic vol] 94 fL 80 - 100 fL [facility] Platelet mean volume (Bld) [Entitic vol] PLATELET CLUMPS PRECLUDE COUNT 7 - 12 fL [facility] Platelets (Bld) [#/Vol] ESTIMATE OF PLATELETS, NORMAL [facility] RBC (Bld) [#/Vol] 3.63 10*6/uL Low [facility] WBC corrected for nucl RBC Auto (Bld) [#/Vol] 10 [facility] COMPLETE BLOOD COUNTon 05-08 Erythrocyte distribution width (RBC) [Ratio] 13.2 % Normal 11.5-15.0 [facility] Comment on above: Performed By: #### Shira WOODALL PINR, [id number] #### [facility] ([id number]) [address], [address] [place] [address] Hematocrit (Bld) [Volume fraction] 34.0 % Low 35-47 [facility] Comment on above: Performed By: #### Shira WOODALL PINR, [id number] #### [facility] ([id number]) [address], [address] [place] [address] Hemoglobin (Bld) [Mass/Vol] 12.0 g/dL Normal 11.7-15.5 [facility] Comment on above: Performed By: #### Shira WOODALL PINR, [id number] #### [facility] ([id number]) [address], [address] [place] [address] MCH (RBC) [Entitic mass] 33.2 pg Normal 27-34 [facility] Comment on above: Performed By: #### Shira WOODALL PINR, [id number] #### [facility] ([id number]) [address], [address] [place] [address] MCHC (RBC) [Mass/Vol] 35.5 g/dL Normal 32-36 [facility] Comment on above: Performed By: #### Shira WOODALL PINR, [id number] #### [facility] ([id number]) [address], [address] [place] [address] MCV (RBC) [Entitic vol] 94 fL Normal 80-100 P [facility] Comment on above: Performed By: #### Shira WOODALL PINR, 15302-1 #### [facility] ([id number]) [address], [address] [place] [address] MPV PLATELET CLUMPS PRECLUDE COUNT Normal 7-12 [facility] Comment on above: Performed By: #### Shira WOODALL, PINR, [id number] #### [facility] ([id number]) [address], [address] [place] [address] PLATELET COUNT ESTIMATE OF PLATELETS, NORMAL Normal 150-450 [facility] Comment on above: Result Comment: PLAT ELET CLUMPS PRECLUDE COUNT Performed By: #### Shira WOODALL PINR, [id number] #### [facility] ([id number]) [address], [address] [place] [address] RBC COUNT 3.63 X10E12/L Low 3.80-5.20 [facility] Comment on above: Performed By: #### Shira WOODALL PINR, [id number] #### [facility] ([id number]) [address], [facility] [address] [place] [address] WBC (Bld) [#/Vol] 10.0 10*3/uL Normal 4.0-11.0 [facility] Comment on above: Performed By: #### Shira WOODALL PINR, [id number] #### [facility] ([id number]) [address], [address] [place] [address] COMPREHENSIVE METABOLIC PANE Brock 05-08-2024 Albumin [Mass/Vol] 3.3 g/dL Normal 3.2-5.3 [facility] Comment on above: Performed By: #### Shira WOODALL, PINR, [id number] #### [facility] ([id number]) [address], [address] [place] [address] ALP [Catalytic activity/Vol] 59 U/L Normal 39-130 [facility] Comment on above: Performed By: #### Shira WOODALL PINR, 64129-0 #### [facility] ([id number]) [address], [address] [place] [address] ALT [Catalytic activity/Vol] 25 U/L Normal 0-31 [facility] Comment on above: Performed By: #### C BCA, PINR, 95659-0 #### [facility] ([id number]) [address], [address] [place], [place] [address] Anion gap [Moles/Vol] 7 mmol/L Normal 5-15 [facility] Comment on above: Performed By: #### C BCA, PINR, 96348-1 #### [facility] ([id number]) [address], [address] [place], [place] [address] AST [Catalytic activity/Vol] 110 U/L High 0-41 [facility] Comment on above: Performed By: #### C BCA, PINR, [id number] #### [facility] ([id number]) [address], [address] [place] [address] Bilirubin [Mass/Vol] 1.0 mg/dL Normal 0.3-1.2 [facility] Comment on above: Performed By: #### C BCA, PINR, 54804-5 #### [facility] ([id number]) [address], [address] [place] [address] Calcium [Mass/Vol] 8.2 mg/dL Low 8.5-10.5 [facility] Comment on above: Performed By: #### C BCA, PINR, 76346-2 #### [facility] ([id number]) [address], [address] [place] [address] Chloride [Moles/Vol] 93 mmol/L Low 98-109 [facility] Comment on above: Performed By: #### C BCA, PINR, [id number] #### [facility] ([id number]) [address], [address] [place] [address] CO2 [Moles/Vol] 28 mmol/L Normal 22-32 [facility] Comment on above: Performed By: #### C TALISHA PINR, [id number] #### [facility] ([id number]) [address], [address] [place] [address] Creatinine [Mass/Vol] 0.48 mg/dL Normal 0.40-1.00 [facility] Comment on above: Result Comment: METH OD TRACEABLE TO IDMS STANDARD Performed By: #### C TALISHA PINR, [id number] #### [facility] ([id number]) [address], [facility] [address] [place] [address] eGFR (CKD-EPI) NON-RACE DEPENDENT >90 Normal >59 [facility] Comment on above: Result Comment: Reported eGFR is based on the CKD-EPI 2020 equation that does not use a race coefficient. Performed By: #### C TALISHA PINR, 58993-8 #### [facility] ([id number]) [address], [address] [place] [address] Glucose [Mass/Vol] 94 mg/dL Normal 65-99 [facility] Comment on above: Performed By: #### C TALISHA, PINR, 54930-2 #### [facility] ([id number]) [address], [address] [place] [address] Potassium [Moles/Vol] 3.3 mmol/L Low 3.5-5.0 [facility] Comment on above: Performed By: #### C TALISHA, PINR, 38576-5 #### [facility] ([id number]) [address] [address] [place] [address] Protein [Mass/Vol] 5.8 g/dL Low 6.0-8.0 [facility] Comment on above: Performed By: #### C TALISHA, PINR, 20869-7 #### [facility] ([id number]) [address], [address] [place] [address] Sodium [Moles/Vol] 128 mmol/L Low 134-146 [facility] Comment on above: Performed By: #### C BCA, PINR, 99702-3 #### [facility] ([id number]) [address], [address] [place] [address] Urea nitrogen [Mass/Vol] 10 mg/dL Normal 5-27 [facility] Comment on above: Performed By: #### C BCA, PINR, [id number] #### [facility] ([id number]) [address], [address] [place] [address] Cardiac echo study Procedure on 05-08-2024 XCELERA [facility] Comprehensive metabolic pane brock 05-08-2024 Albumin [Mass/Vol] 3.3 g/dL 3.2 - 5.3 g/dL [facility] ALP [Catalytic activity/Vol] 59 U/L 39 - 130 U/L [facility] ALT No additional P-5'-P [Catalytic activity/Vol] 25 U/L 0 - 31 U/L [facility] Anion gap [Moles/Vol] 7 mmol/L 5 - 15 mmol/L [facility] AST [Catalytic activity/Vol] 110 U/L High 0 - 41 U/L [facility] Bilirubin [Mass/Vol] 1 mg/dL 0.3 - 1 .2 mg/dL [facility] Calcium [Mass/Vol] 8.2 mg/dL Low 8.5 - 10. 5 mg/dL [facility] Chloride [Moles/Vol] 93 mmol/L Low 98 - 10 9 mmol/L [facility] CO2 [Moles/Vol] 28 mmol/L 22 - 32 mmol/L [facility] Creatinine [Mass/Vol] 0.48 mg/dL 0.40 - 1.00 mg/dL [facility] eGFR (CKD-EPI)non-race dependent - PINF [facility] Glucose [Mass/Vol] 94 mg/dL 65 - 99 mg/dL [facility] Interpretation and review of laboratory results Abnormal [facility] Potassium [Moles/Vol] 3.3 mmol/L Low 3.5 - 5.0 mmol/L [facility] Protein [Mass/Vol] 5.8 g/dL Low 6.0 - 8.0 g/dL [facility] Sodium [Moles/Vol] 128 mmol/L Low 134 - 146 mmol/L [facility] Urea nitrogen [Mass/Vol] 10 mg/dL 5 - 27 mg/dL [facility] Cortisolon 05-08-2024 Cortisol [Mass/Vol] 15.2 ug/dL [facility] Cortisol [Mass/Vol]on 2024 [facility] CORTISOL 15.2 ug/dL Normal [facility] Comment on above: Result Comment: Due to the diurnal variation of cortisol levels in normal subjects, all cortisol measurements should be referenced to the time of day of sample collection. AM Cortisol Age>=6 6.7-22.4 ug/dL PM Cortisol Age>=6 <10 ug/dL Performed By: #### C TALISHA PINR, 68547-1 #### [facility] ([id number]) [address], [address] [place] [address] DRUG SCREEN, URINEon 025 AMPHETAMINE/METHAMP Negative Normal NEG [facility] Comment on above: Result Comment: AMPH /METH screening cut off = 1000 ng/mL Performed By: #### C TALISHA, PINR, 37573-9 #### [facility] ([id number]) [address], [address] [place] [address] BARBITURATES Negative Normal NEG [facility] Comment on above: Result Comment: Brittni iturates screening cut off value = 200 ng/mL Performed By: #### C TALISHA, PINR, 38986-1 #### [facility] ([id number]) [address], [address] [place] [address] BENZODIAZEPINES Positive Abnormal NEG [facility] Comment on above: Result Comment: Conf irmation available upon request. Benzodiazepines screening cut off value = 200 ng/mL Performed By: #### C TALISHA, PINR, 86690-3 #### [facility] ([id number]) [address], [address] [place] [address] CANNABINOIDS Negative Normal NEG [facility] Comment on above: Result Comment: Misha abinoids/THC screening cut off value = 50 ng/mL Performed By: #### C BCA, PINR, 04936-7 #### [facility] ([id number]) [address], [address] [address] COCAINE METABOLITE Negative Normal NEG [facility] Comment on above: Result Comment: Coca ine screening cut off value = 300 ng/mL Performed By: #### C BCA, PINR, 31785-9 #### [facility] ([id number]) [address], [address] [place] [address] ECSTASY Negative Normal [facility] Comment on above: Result Comment: Ecst asy screening cut off value = 500 ng/mL This report is intended for use in clinical monitoring or management of patients. Performed By: #### C BCA, PINR, 27600-8 #### [facility] ([id number]) [address], [address] [place] [address] METHADONE Negative Normal NEG [facility] Comment on above: Result Comment: Meth adone screening cut off value = 300 ng/mL. Performed By: #### C BCA, PINR, 95963-2 #### [facility] ([id number]) [address], [address] [place] [address] OPIATES Positive Abnormal NEG [facility] Comment on above: Result Comment: Conf irmation available upon request. Opiates screening cut off value = 300 ng/mL NOTE: This test is used for the detection of codeine, hydrocodone (>1000 ng/mL), morphine and hydromorphone (>900 ng/mL) in urine. Performed By: #### C BCA, PINR, 87191-7 #### [facility] ([id number]) [address] [facility] [facility] [place] [address] OXYCODONE Negative Normal NEG [facility] Comment on above: Result Comment: Oxyc odone screening cut off value = 300 ng/mL NOTE: This test is used for the detection of oxycodone and oxymorphone in urine. Performed By: #### C BCA, PINR, 24643-2 #### [facility] ([id number]) [address] [facility], [address] [place] [address] PHENCYCLIDINE Negative Normal NEG [facility] Comment on above: Result Comment: Phen cyclidine screening cut off value = 25 ng/mL Performed By: #### C BCA, PINR, 30333-2 #### [facility] ([id number]) [address] [facility] [facility] [place] [address] Drug Screen, Urineon 025 Amphetamines Screen method >1000 ng/mL Ql (U) Negative Negative^Neg ative [facility] Barbiturates Screen Ql (U) Negative Negative^Neg ative [facility] Benzodiazepines Ql (U) Positive Abnormal Negat stuart^Neg ative [facility] Cocaine Ql (U) Negative Negative^Neg ative [facility] Interpretation and review of laboratory results Abnormal [facility] Methadone Screen Ql (U) Negative Nega tive^Neg ative [facility] Methylenedioxymethamphe tamine Screen Ql (U) Negative Negative^Neg ative [facility] Opiates Screen Ql (U) Positive Abnormal Negati ve^Neg ative [facility] oxyCODONE Ql (U) Negative Negative^Ne g ative [facility] Phencyclidine Screen method >25 ng/mL Ql (U) Negative Negative^Neg ative [facility] Tetrahydrocannabinol Screen method >50 ng/mL Ql (U) Negative Negative^Neg ative [facility] ELECTROLYTESon 05-08-2024 Anion gap [Moles/Vol] 6 mmol/L Normal 5-15 [facility] Comment on above: Performed By: #### C TALISHA PINR, 09085-7 #### [facility] ([id number]) [address] [place] [address] Chloride [Moles/Vol] 97 mmol/L Low 98-109 [facility] Comment on above: Performed By: #### C TALISHA, PINR, 06246-7 #### [facility] ([id number]) [address] [place] [address] CO2 [Moles/Vol] 26 mmol/L Normal 22-32 [facility] Comment on above: Performed By: #### Shira WOODALL PINR, 16431-8 #### [facility] ([id number]) [address] [place] [address] Potassium [Moles/Vol] 4.3 mmol/L Normal 3.5-5.0 [facility] Comment on above: Performed By: #### Shira WOODALL PINR, 75316-2 #### [facility] ([id number]) [address] [place] [address] Sodium [Moles/Vol] 129 mmol/L Low 134-146 [facility] Comment on above: Performed By: #### Shira WOODALL PINR, 24482-6 #### [facility] ([id number]) [address] [place] [address] Anion gap [Moles/Vol] 8 mmol/L Normal 5-15 [facility] Comment on above: Performed By: #### Shira WOODALL, PINR, 87113-4 #### [facility] ([id number]) [address] [place] [address] Chloride [Moles/Vol] 95 mmol/L Low 98-109 [facility] Comment on above: Performed By: #### Shira WOODALL, PINR, 59136-1 #### [facility] ([id number]) [address] [place] [address] CO2 [Moles/Vol] 24 mmol/L Normal 22-32 [facility] Comment on above: Performed By: #### Shira WOODALL, PINR, 31526-0 #### [facility] ([id number]) [address], [address] [place] [address] Potassium [Moles/Vol] 4.0 mmol/L Normal 3.5-5.0 [facility] Comment on above: Performed By: #### Shira WOODALL PINR, 30262-4 #### [facility] ([id number]) [address], [address] [place] [address] Sodium [Moles/Vol] 127 mmol/L Low 134-146 [facility] Comment on above: Performed By: #### Shira WOODALL, PINR, 20022-2 #### [facility] ([id number]) [address], [address] [place] [address] ETHANOLon 05-08-2024 Ethanol [Mass/Vol] mg/dL Normal 0.00-0.08 [facility] Comment on above: Result Comment: This report is intended for use in clinical monitoring or management of patients. Performed By: #### Shira WOODALL PINR, 99208-4 #### [facility] ([id number]) [address], [address] [place] [address] Electrolyte panelon 05-09-19 Anion gap [Moles/Vol] 6 mmol/L 5 - 15 mmol/L [facility] Chloride [Moles/Vol] 97 mmol/L Low 98 - 10 9 mmol/L [facility] CO2 [Moles/Vol] 26 mmol/L 22 - 32 mmol/L [facility] Interpretation and review of laboratory results Abnormal [facility] Potassium [Moles/Vol] 4.3 mmol/L 3.5 - 5.0 mmol/L [facility] Sodium [Moles/Vol] 129 mmol/L Low 134 - 146 mmol/L [facility] Anion gap [Moles/Vol] 8 mmol/L 5 - 15 mmol/L [facility] Chloride [Moles/Vol] 95 mmol/L Low 98 - 10 9 mmol/L [facility] CO2 [Moles/Vol] 24 mmol/L 22 - 32 mmol/L [facility] Interpretation and review of laboratory results Abnormal [facility] Potassium [Moles/Vol] 4 mmol/L 3.5 - 5.0 mmol/L [facility] Sodium [Moles/Vol] 127 mmol/L Low 134 - 146 mmol/L [facility] Ethanolon 05-08-2024 Ethanol [Mass/Vol] g/dL 0.00 - 0. 08 g/dL [facility] HGB A1C (GLYCO-HGB)on 2024 Glucose [Mass/Vol] 120 mg/dL Normal [facility] Comment on above: Performed By: #### C KEVIN WOODALL, 53334-9 #### [facility] ([id number]) [address] [place] [address], [facility] [address] [place] [address] HbA1c (Bld) [Mass fraction] 5.8 % High 4.4-5.6 [facility] Comment on above: Result Comment: NOTE ADA Guidelines Result HgbA1c Normal : less than 5.7 % Prediabetes : 5.7 % to 6.4 % Diabetes : > 6.4 % Use with caution in patients with abnormal hemoglobin variants as the half-life of red blood cells and in vivo glycation rates are affected. Performed By: #### KEVIN Silva BCA, 68371-8 #### [facility] ([id number]) [address] [facility] [place] [address] Hemoglobin A1con 05-08-2024 Average glucose Estimated from glycated hemoglobin (Bld) [Mass/Vol] 120 mg/dL [facility] HbA1c (Bld) [Mass fraction] 5.8 % High 4.4 - 5.6 % [facility] Interpretation and review of laboratory results Abnormal [facility] Heparin unfractionated Chrom ogenic method Qn (PPP)on 05-08-2024 Interpretation and review of laboratory results Abnormal [facility] Ionized magnesiumon 05-09-19 25 Magnesium Ionized ISE (Bld) [Moles/Vol] 0.7 mmol/L 0.45 - 0.74 mmol/L [facility] Lipid 1996 panelon 5 Cholesterol [Mass/Vol] 197 mg/dL 150 - 200 mg/dL [facility] Cholesterol in HDL [Mass/Vol] 45 mg/dL 39 - PINF mg/dL [facility] Cholesterol in LDL [Mass/Vol] 123 mg/dL NINF - 130 mg/dL [facility] Cholesterol in VLDL [Mass/Vol] 29 mg/dL 0 - 30 mg/dL [facility] Cholesterol.total/Nubia sterol in HDL [Mass ratio] 4.4 {ratio} 1.0 - 5.0 [facility] Triglyceride [Mass/Vol] 145 mg/dL 27 - 150 mg/dL [facility] Cholesterol [Mass/Vol] 197 mg/dL Normal 150-200 [facility] Comment on above: Performed By: #### C KEVIN WOODALL, 91924-5 #### [facility] ([id number]) [address] [place] [address] [address] [place] [address] Cholesterol in HDL [Mass/Vol] 45 mg/dL Normal >39 [facility] Comment on above: Result Comment: HDL <40 mg/dL - High Risk HDL > or = 40mg/dL- Desirable HDL >60 mg/dL - Negative Risk Performed By: #### C KEVIN WOODALL, 00312-6 #### [facility] ([id number]) [address] [place] [address] Cholesterol in LDL [Mass/Vol] 123 mg/dL Normal <130 [facility] Comment on above: Result Comment: LDL <100 mg/dL - Desirable LDL >160 mg/dL - High Risk Performed By: #### Shira WOODALL PINR, 06112-1 #### [facility] ([id number]) [address] [place] [address] Cholesterol in VLDL [Mass/Vol] 29 mg/dL Normal 0-30 [facility] Comment on above: Performed By: #### Shira WOODALL PINR, 03839-5 #### [facility] ([id number]) [address] [place] [address] CHOLESTEROL:HDL 4.4 Normal 1.0-5.0 [facility] Comment on above: Performed By: #### Shira WOODALL, PINR, 86917-9 #### [facility] ([id number]) [address] [place] [address] Triglyceride [Mass/Vol] 145 mg/dL Normal 27-150 P [facility] Comment on above: Performed By: #### Shira WOODALL PINR, 48033-6 #### [facility] ([id number]) [address] [place] [address] MAGNESIUMon 05-08-2024 Magnesium [Mass/Vol] 1.8 mg/dL Normal 1.8-2.6 [facility] Comment on above: Performed By: #### Shira WOODALL, PINR, 03693-9 #### [facility] ([id number]) [address] [place] [address] Magnesiumon 05-08-2024 Magnesium [Mass/Vol] 1.8 mg/dL 1.8 - 2 .6 mg/dL [facility] Magnesium Ionized ISE (Bld) [Moles/Vol]on 05-08-2024 [facility] Magnesium [Moles/Vol] 0.70 mmol/L Normal 0.45-0.[address] [facility] Comment on above: Result Comment: NEW REFERENCE RANGE Performed By: #### KEVIN Silva BCA, [id number] #### [facility] ([id number]) [address], [address] [place] [address] No Panel Informationon 05-08 [facility] [facility] Osmolalityon 05-08-2024 Osmolality [Osmolality] 256 mosm/kg Low [facility] Osmolality (U) [Osmolality]o n 05-08-2024 [facility] URINE OSMOLALITY 353 mOsm/kg H2 Normal 300-1300 [facility] Comment on above: Performed By: #### KEVIN Silva BCA, 79229-1 #### [facility] ([id number]) [address], [address] [place] [address] Osmolality [Osmolality]on Interpretation and review of laboratory results Abnormal [facility] OSMOLALITY 256 mOsm/kg H2 Low 280-300 [facility] Comment on above: Performed By: #### KEVIN Silva BCA, 73769-2 #### [facility] ([id number]) [address], [address] [place] [address] Osmolality, urineon 05-09-19 Osmolality (U) [Osmolality] 353 mosm/kg [facility] Sodiumon 05-08-2024 Sodium [Moles/Vol] 126 mmol/L Low 134 - 146 mmol/L [facility] Sodium (U) [Moles/Vol]on [facility] URINE SODIUM,RANDOM <10 Normal [facility] Comment on above: Performed By: #### KEVIN Silva BCA, 98450-3 #### [facility] ([id number]) [address], [address] [place] [address] Sodium [Moles/Vol]on 025 Interpretation and review of laboratory results Abnormal [facility] Sodium, urine, randomon 04-14 Sodium (U) [Moles/Vol] mmol/L mmol/L Pr [facility] THYROID PROFILEon 05-08-2024 Free T4 [Mass/Vol] 1.07 ng/dL Normal 0.61-1.60 [facility] Comment on above: Performed By: #### C BCA, PINR, 04045-8 #### [facility] ([id number]) [address] [place] [address], [address] [place] [address] TSH 1.49 uIU/mL Normal 0.49-4.67 [facility] Comment on above: Performed By: #### Shira BCA, PINR, 82150-3 #### [facility] ([id number]) [address] [place] [address], [address] [place] [address] Thyroid profile includes TSH FT4on 05-08-2024 Free T4 [Mass/Vol] 1.07 ng/dL 0.61 - 1. 60 ng/dL [facility] TSH Qn 1.49 m[IU]/L [facility] Troponin I, High Sensitivity 3 Houron 05-08-2024 Troponin I.cardiac High sensitivity method [Mass/Vol] 62575 ng/L Critically high NINF - 16 ng/L [facility] Troponin I.cardiac High sensitivity method [Mass/Vol] 76082 ng/L Critically high NINF - 16 ng/L [facility] Troponin I.cardiac High sensitivity method [Mass/Vol] 37652 ng/L [facility]/L [facility] Troponin I.cardiac High sens itivity method [Mass/Vol]on 05-08-2024 Interpretation and review of laboratory results Abnormal [facility] 3 HOUR TROP I, HIGH SENSITIVITY 20419 ng/L Critically high <16 [facility] Comment on above: Result Comment: Elevations of hs-Troponin may be due to causes other than myocardial ischemia. Recommend serial hs-Troponin testing be performed. For the initial evaluation and management of chest pain patients, refer to the algorithms linked below. Emergency Patient: [email or web address] Inpatient: [email or web address] &[email or web address] Performed By: #### C BCA, PINR, 25044-0 #### [facility] ([id number]) [address], [address] [place] [address] Interpretation and review of laboratory results Abnormal [facility] 3 HOUR TROP I, HIGH SENSITIVITY 56619 ng/L Critically high <16 [facility] Comment on above: Result Comment: Elevations of hs-Troponin may be due to causes other than myocardial ischemia. Recommend serial hs-Troponin testing be performed. For the initial evaluation and management of chest pain patients, refer to the algorithms linked below. Emergency Patient: [email or web address] Inpatient: [email or web address] Performed By: #### C BCA, PINR, 35394-7 #### [facility] ([id number]) [address], [address] [place] [address] Interpretation and review of laboratory results Abnormal [facility] 3 HOUR TROP I, HIGH SENSITIVITY 66634 ng/L Critically high <16 [facility] Comment on above: Result Comment: Elevations of hs-Troponin may be due to causes other than myocardial ischemia. Recommend serial hs-Troponin testing be performed. For the initial evaluation and management of chest pain patients, refer to the algorithms linked below. Emergency Patient: [email or web address] Inpatient: [email or web address] &uh=[email or web address] Performed By: #### C KEVIN WOODALL, 83015-6 #### [facility] ([id number]) [address], [address] [place] [address] URIC ACIDon 05-08-2024 Urate [Mass/Vol] 3.7 mg/dL Normal 2.6-7.2 [facility] Comment on above: Performed By: #### C KEVIN WOODALL, 76936-2 #### [facility] ([id number]) [address], [address] [place] [address] Uric acidon 05-08-2024 Urate [Mass/Vol] 3.7 mg/dL 2.6 - 7.2 mg/dL [facility] Vitamin D 25 hydroxyon 05-08 Vitamin D+Metabolites [Mass/Vol] 7.6 ng/mL Low 30 - 100 ng/mL [facility] Vitamin D+Metabolites [Mass/ Vol]on 05-08-2024 Interpretation and review of laboratory results Abnormal [facility] VITAMIN D 25 HYD TOT 7.6 ng/mL Low 30-100 [facility] Comment on above: Result Comment: Vitamin D status 25 [place] Vitamin D Deficiency <20 ng/mL Insufficiency 20-29 ng/mL Sufficiency 30-100 ng/mL Toxicity >100 ng/mL NOTE: A pediatric reference range has not been established by the calender operator helper of this kit. The [employer] recommends a Vitamin D level of = or >20ng/mL in infants and children. Performed By: #### KEVIN Silva BCA, 88267-5 #### [facility] ([id number]) [address], [address] [place] [address] APTTon 05-07-2024 aPTT Coag (PPP) [Time] 124 s Critically high [facility] ARTERIAL CODEon 05-07-2024 PRACHI'S TEST Pass Normal [facility] Comment on above: Performed By: #### I CODE #### [facility] ([id number]) [address] [place] [address] BASE,DEFICIT 2.0 MMOL/L Normal 0.0-2.0 [facility] Comment on above: Performed By: #### I CODE #### [facility] ([id number]) [address] [place] [address] Body temperature 98.6 [degF] Normal 37.0 [facility] Comment on above: Performed By: #### I CODE #### [facility] ([id number]) [address] [place] [address] Glucose [Mass/Vol] 151 mg/dL High 65-99 [facility] Comment on above: Performed By: #### I CODE #### [facility] ([id number]) [address] [place] [address] HCO3 (Bld) [Moles/Vol] 21.3 mmol/L Low 22-26 P [facility] Comment on above: Performed By: #### I CODE #### [facility] ([id number]) [address] [place] [address] Hematocrit (Bld) [Volume fraction] 40 % Normal 35-47 [facility] Comment on above: Performed By: #### I CODE #### [facility] ([id number]) [address] [place] [address] Oxygen (Bld) [Partial pressure] 79 mm[Hg] Low 80-100 [facility] Comment on above: Performed By: #### I CODE #### [facility] ([id number]) [address] [place] [address] Oxygen saturation in Blood 96.0 % Normal >90 [facility] Comment on above: Performed By: #### I CODE #### [facility] ([id number]) [address] [place] [address] OXYGEN SOURCE NC Normal [facility] Comment on above: Performed By: #### I CODE #### [facility] ([id number]) [address] [place] [address] PCO2 32.8 MMHG Low 35-45 [facility] Comment on above: Performed By: #### I CODE #### [facility] ([id number]) [address] [place] [address] pH (Bld) 7.421 [pH] Normal 7.350-7.450 [facility] Comment on above: Performed By: #### I CODE #### [facility] ([id number]) [address] [place] [address] PORTABLE ICA 4.5 mg/dL Normal 4.5-5.3 [facility] Comment on above: Performed By: #### I CODE #### [facility] ([id number]) [address] [place] [address] Potassium [Moles/Vol] 3.6 mmol/L Normal 3.5-5.0 [facility] Comment on above: Performed By: #### I CODE #### [facility] ([id number]) [address] [place] [address] SAMPLE SITE LRad Normal [facility] Comment on above: Performed By: #### I CODE #### [facility] ([id number]) [address] [place] [address] SAMPLE TYPE ARTERIAL Normal [facility] Comment on above: Performed By: #### I CODE #### [facility] ([id number]) [address] [place] [address] Sodium [Moles/Vol] 117 mmol/L Critically low 134-146 Pr [facility] Comment on above: Performed By: #### I CODE #### [facility] ([id number]) [address] [place] [address] CBC AND AUTO DIFFon 03-25-20 25 ABSOLUTE BASOPHIL 0.0 X10E9/L Normal 0.0-0.2 [facility] Comment on above: Performed By: #### C TALISHA, PINR, 02145-2 #### [facility] ([id number]) [address], [address] [place] [address] ABSOLUTE NEUTROPHIL 14.9 X10E9/L High 1.5-6.6 Pro [facility] Comment on above: Performed By: #### Shira WOODALL, PINR, 10009-2 #### [facility] ([id number]) [address], [address] [place] [address] Basophils/100 WBC (Bld) 0.2 % Normal P [facility] Comment on above: Performed By: #### Shira WOODALL, PINR, 93153-2 #### [facility] ([id number]) [address], [address] [place] [address] Eosinophils (Bld) [#/Vol] 0.0 10*3/uL Normal 0.0-0.4 [facility] Comment on above: Performed By: #### Shira WOODALL, PINR, 74514-8 #### [facility] ([id number]) [address], [address] [place] [address] Eosinophils/100 WBC (Bld) 0.0 % Normal [facility] Comment on above: Performed By: #### Shira WOODALL, PINR, 69398-6 #### [facility] ([id number]) [address], [address] [place] [address] Erythrocyte distribution width (RBC) [Ratio] 12.8 % Normal 11.5-15.0 [facility] Comment on above: Performed By: #### KEVIN Silva BCA, 68791-2 #### [facility] ([id number]) [address], [address] [place] [address] Hematocrit (Bld) [Volume fraction] 37.8 % Normal 35-47 [facility] Comment on above: Performed By: #### KEVIN Silva BCA, 07507-4 #### [facility] ([id number]) [address], [address] [place] [address] Hemoglobin (Bld) [Mass/Vol] 13.3 g/dL Normal 11.7-15.5 [facility] Comment on above: Performed By: #### KEVIN Silva BCA, 17138-9 #### [facility] ([id number]) [address], [address] [place] [address] Lymphocytes (Bld) [#/Vol] 1.4 10*3/uL Normal 1.0-3.5 [facility] Comment on above: Performed By: #### KEVIN Silva BCA, 95090-6 #### [facility] ([id number]) [address], [address] [place] [address] Lymphocytes/100 WBC (Bld) 8.1 % Normal [facility] Comment on above: Performed By: #### KEVIN Silva BCA, 17734-7 #### [facility] ([id number]) [address], [address] [place] [address] MCH (RBC) [Entitic mass] 33.5 pg Normal 27-34 [facility] Comment on above: Performed By: #### KEVIN Silva BCA, 16543-5 #### [facility] ([id number]) [address], [address] [place] [address] MCHC (RBC) [Mass/Vol] 35.2 g/dL Normal 32-36 [facility] Comment on above: Performed By: #### C TALISHA, PINR, 60493-9 #### [facility] ([id number]) [address], [address] [place] [address] MCV (RBC) [Entitic vol] 95 fL Normal 80-100 P [facility] Comment on above: Performed By: #### Shira WOODALL, PINR, 43189-3 #### [facility] ([id number]) [address], [address] [place] [address] Monocytes (Bld) [#/Vol] 1.4 10*3/uL High 0-0.9 [facility] Comment on above: Performed By: #### Shira WOODALL, PINR, 69376-1 #### [facility] ([id number]) [address] [place] [address] Monocytes/100 WBC (Bld) 7.7 % Normal [facility] Comment on above: Performed By: #### Shira WOODALL, PINR, 00097-7 #### [facility] ([id number]) [address] [place] [address] Neutrophils/100 WBC (Bld) 84.0 % Normal [facility] Comment on above: Performed By: #### Shira WOODALL, PINR, 17525-9 #### [facility] ([id number]) [address], [address] [place] [address] Platelet mean volume (Bld) [Entitic vol] 8.5 fL Normal 7-12 [facility] Comment on above: Performed By: #### Shira WOODALL, PINR, 97060-5 #### [facility] ([id number]) [address], [address] [place] [address] Platelets (Bld) [#/Vol] 270 10*3/uL Normal 150-450 [facility] Comment on above: Performed By: #### Shira BCA, PINR, 83277-5 #### [facility] ([id number]) [address], [address] [place] [address] RBC COUNT 3.98 X10E12/L Normal 3.80-5.20 [facility] Comment on above: Performed By: #### C SURENDRA WOODALLR, 77001-6 #### [facility] ([id number]) [address], [address] [place] [address] WBC (Bld) [#/Vol] 17.7 10*3/uL High 4.0-11.0 [facility] Comment on above: Performed By: #### C SURENDRA WOODALLR, 24994-6 #### [facility] ([id number]) [address], [address] [place] [address] CBC auto differentialon 04-14 Basophils (Bld) [#/Vol] 0 10*3/uL P [facility] Basophils/100 WBC (Bld) 0.2 % P [facility] Eosinophils (Bld) [#/Vol] 0 10*3/uL [facility] Eosinophils/100 WBC (Bld) 0 % [facility] Erythrocyte distribution width (RBC) [Ratio] 12.8 % 11.5 - 15.0 % [facility] Hematocrit (Bld) [Volume fraction] 37.8 % 35 - 47 % [facility] Hemoglobin (Bld) [Mass/Vol] 13.3 g/dL 11.7 - 15.5 g/dL [facility] Interpretation and review of laboratory results Abnormal [facility] Lymphocytes (Bld) [#/Vol] 1.4 10*3/uL [facility] Lymphocytes/100 WBC (Bld) 8.1 % [facility] MCH (RBC) [Entitic mass] 33.5 pg 27 - 34 pg [facility] MCHC (RBC) [Mass/Vol] 35.2 g/dL 32 - 36 g/dL [facility] MCV (RBC) [Entitic vol] 95 fL 80 - 100 fL [facility] Monocytes (Bld) [#/Vol] 1.4 10*3/uL [facility] Monocytes/100 WBC (Bld) 7.7 % [facility] Neutrophils (Bld) [#/Vol] 14.9 10*3/uL High [facility] Neutrophils/100 WBC (Bld) 84 % [facility] Platelet mean volume (Bld) [Entitic vol] 8.5 fL 7 - 12 fL [facility] Platelets (Bld) [#/Vol] 270 10*3/uL [facility] RBC (Bld) [#/Vol] 3.98 10*6/uL [facility] WBC corrected for nucl RBC Auto (Bld) [#/Vol] 17.7 High [facility] COMPREHENSIVE METABOLIC PANE Brock 05-07-2024 Albumin [Mass/Vol] 3.6 g/dL Normal 3.2-5.3 [facility] Comment on above: Performed By: #### Adela NEFF CMP, #### [facility] ([id number]) [address], [address] [place] [address] ALP [Catalytic activity/Vol] 63 U/L Normal 39-130 [facility] Comment on above: Performed By: #### Adela NEFF CMP, #### [facility] ([id number]) [address], [address] [place] [address] ALT [Catalytic activity/Vol] 31 U/L Normal 0-31 [facility] Comment on above: Performed By: #### Adela NEFF CMP, #### [facility] ([id number]) [address], [address] [place] [address] Anion gap [Moles/Vol] 7 mmol/L Normal 5-15 [facility] Comment on above: Performed By: #### Adela NEFF CMP, 97715-1 #### [facility] ([id number]) [address], [address] [place] [address] AST [Catalytic activity/Vol] 124 U/L High 0-41 [facility] Comment on above: Performed By: #### Adela NEFF CMP, #### [facility] ([id number]) [address], [address] [place] [address] Bilirubin [Mass/Vol] 0.8 mg/dL Normal 0.3-1.2 [facility] Comment on above: Performed By: #### Adela NEFF CMP, #### [facility] ([id number]) [address] [place] [address] Calcium [Mass/Vol] 8.5 mg/dL Normal 8.5-10.5 [facility] Comment on above: Performed By: #### Adela NEFF CMP, #### [facility] ([id number]) [address] [place] [address] Chloride [Moles/Vol] 88 mmol/L Low 98-109 [facility] Comment on above: Performed By: #### Adela NEFF CMP, #### [facility] ([id number]) [address], [address] [place] [address] CO2 [Moles/Vol] 28 mmol/L Normal 22-32 [facility] Comment on above: Performed By: #### Adela NEFF CMP, #### [facility] ([id number]) [address] [place] [address] Creatinine [Mass/Vol] 0.64 mg/dL Normal 0.40-1.00 [facility] Comment on above: Result Comment: METH OD TRACEABLE TO IDMS STANDARD Performed By: #### Adela NEFF CMP, #### [facility] ([id number]) [address], [address] [place] [address] eGFR (CKD-EPI) NON-RACE DEPENDENT >90 Normal >59 [facility] Comment on above: Result Comment: Reported eGFR is based on the CKD-EPI 2020 equation that does not use a race coefficient. Performed By: #### Adela NEFF CMP, #### [facility] ([id number]) [address], [address] [place] [address] Glucose [Mass/Vol] 124 mg/dL High 65-99 [facility] Comment on above: Performed By: #### Adela NEFF CMP, #### [facility] ([id number]) [address], [address] [place] [address] Potassium [Moles/Vol] 3.9 mmol/L Normal 3.5-5.0 [facility] Comment on above: Performed By: #### Adela NEFF CMP, #### [facility] ([id number]) [address] [place] [address] Protein [Mass/Vol] 6.3 g/dL Normal 6.0-8.0 [facility] Comment on above: Performed By: #### Adela NEFF CMP, 59824-4 #### [facility] ([id number]) [address], [address] [place] [address] Sodium [Moles/Vol] 123 mmol/L Low 134-146 [facility] Comment on above: Performed By: #### Adela NEFF CMP, #### [facility] ([id number]) [address], [address] [place] [address] Urea nitrogen [Mass/Vol] 12 mg/dL Normal 5-27 [facility] Comment on above: Performed By: #### Adela NEFF CMP, 39216-0 #### [facility] ([id number]) [address], [address] [place], [place] [address] CT BRAIN WO CONTon 5 CT BRAIN WO CONT CT BRAIN WO CONT STUDY: CT HEAD WITHOUT CONTRAST CLINICAL HISTORY: [...] Nnamdi Amaro MD on 05/07/2024 2:42 PM Normal [facility] CT CERVICAL SPINE WO CONTon 05-07-2024 CT CERVICAL SPINE WO CONT CT CERVICAL SPINE WO CONT CT CERVICAL SPINE WO CONT INDICATION: Fall, [...] Maximilian Link MD on 05/07/2024 2:45 PM Normal [facility] Cardiac Invasiveon [facility] XPER [facility] Radiology Study observation (narrative) [facility] Cardiac echo study Procedure on 05-07-2024 Radiology Study observation (narrative) [facility] Comprehensive metabolic pane brock 05-07-2024 Albumin [Mass/Vol] 3.6 g/dL 3.2 - 5.3 g/dL [facility] ALP [Catalytic activity/Vol] 63 U/L 39 - 130 U/L [facility] ALT No additional P-5'-P [Catalytic activity/Vol] 31 U/L 0 - 31 U/L [facility] Anion gap [Moles/Vol] 7 mmol/L 5 - 15 mmol/L [facility] AST [Catalytic activity/Vol] 124 U/L High 0 - 41 U/L [facility] Bilirubin [Mass/Vol] 0.8 mg/dL 0.3 - 1 .2 mg/dL [facility] Calcium [Mass/Vol] 8.5 mg/dL 8.5 - 10. 5 mg/dL [facility] Chloride [Moles/Vol] 88 mmol/L Low 98 - 10 9 mmol/L [facility] CO2 [Moles/Vol] 28 mmol/L 22 - 32 mmol/L [facility] Creatinine [Mass/Vol] 0.64 mg/dL 0.40 - 1.00 mg/dL [facility] eGFR (CKD-EPI)non-race dependent - PINF [facility] Glucose [Mass/Vol] 124 mg/dL High 65 - 99 mg/dL [facility] Interpretation and review of laboratory results Abnormal [facility] Potassium [Moles/Vol] 3.9 mmol/L 3.5 - 5.0 mmol/L [facility] Protein [Mass/Vol] 6.3 g/dL 6.0 - 8.0 g/dL [facility] Sodium [Moles/Vol] 123 mmol/L Low 134 - 146 mmol/L [facility] Urea nitrogen [Mass/Vol] 12 mg/dL 5 - 27 mg/dL [facility] ECG 12 leadon 05-07-2024 TRACEMASTERVUE [facility] E[facility] Glucometer (BldC) [M ass/Vol]on 05-07-2024 Glucose [Mass/Vol] 159 mg/dL High 65 - 99 mg/dL [facility] Interpretation and review of laboratory results Abnormal [facility] Glucose [Mass/Vol] 159 mg/dL High 65-99 [facility] Heparin unfractionated Chrom ogenic method Qn (PPP)on 05-07-2024 ANTI XA UFH <0.04 Low 0.30-0.70 [facility] Comment on above: Result Comment: Opti mal time for testing is 6 hrs post dosage This test is specific for monitoring patients on UFH, and is not recommended for use with other Anti-Xa medications. Performed By: #### 3 274-8, 2951-2 #### [facility] ([id number]) [address] [place] [address] MAGNESIUMon 05-07-2024 Magnesium [Mass/Vol] 1.8 mg/dL Normal 1.8-2.6 [facility] Comment on above: Performed By: #### T HYR, [facility], 04667-5 #### [facility] ([id number]) [address] [place] [address] Magnesiumon 05-07-2024 Magnesium [Mass/Vol] 1.8 mg/dL 1.8 - 2 .6 mg/dL [facility] No Panel Informationon 05-07 [facility] Interpretation and review of laboratory results Abnormal [facility] POCT ABG with NA, K, GLU, IC A and HCTon 05-07-2024 Arterial patency Wrist artery --pre arterial puncture Pass [facility] Base deficit (Bld) [Moles/Vol] 2 mmol/L [facility] Calcium.ionized (Bld) [Moles/Vol] 4.5 mg/dL 4.5 - 5.3 mg/dL [facility] CO2 (Bld) [Partial pressure] 32.8 mm[Hg] Low [facility] Glucose [Mass/Vol] 151 mg/dL High 65 - 99 mg/dL [facility] HCO3 (Bld) [Moles/Vol] 21.3 mmol/L Low [facility] Hematocrit (Bld) [Volume fraction] 40 % 35 - 47 % [facility] Interpretation and review of laboratory results Abnormal [facility] Oxygen (Bld) [Partial pressure] 79 mm[Hg] Low [facility] Oxygen therapy source and amount [CARE] [facility] pH (Bld) 7.421 [pH] 7.350 - 7.450 [facility] Potassium [Moles/Vol] 3.6 mmol/L 3.5 - 5.0 mmol/L [facility] Sodium [Moles/Vol] 117 mmol/L Critically low 134 - 1 46 mmol/L [facility] Specimen site Narrative [facility]Rad [facility] Specimen type Nom (Spec) ARTERIAL [facility] PROTIME AND INRon 05-07-2024 INR Coag (PPP) [Relative time] 1.2 {INR} Normal 0.9-1.2 [facility] Comment on above: Performed By: #### KEVIN Silva BCA, 55482-3 #### [facility] ([id number]) [address], [address] [place] [address] PT Coag (PPP) [Time] 13.4 s High 9.8-13.2 [facility] Comment on above: Performed By: #### Shira WOODALL PINR, 78497-3 #### [facility] ([id number]) [address], [address] [place] [address] Protime & INRon 05-07-2024 INR Coag (PPP) [Relative time] 1.2 {INR} [facility] PT Coag (PPP) [Time] 13.4 s High [facility] SODIUMon 05-07-2024 Sodium [Moles/Vol] 126 mmol/L Low 134-146 [facility] Comment on above: Performed By: #### Shira WOODALL PINR, 49911-2 #### [facility] ([id number]) [address], [address] [place] [address] THYROID PROFILEon 05-07-2024 Free T4 [Mass/Vol] 0.97 ng/dL Normal 0.61-1.60 [facility] Comment on above: Performed By: #### T HYR, CMP, 95384-0 #### [facility] ([id number]) [address] [facility], [address] [place] [address] TSH 0.65 uIU/mL Normal 0.49-4.67 [facility] Comment on above: Performed By: #### T HYR, CMP, 35446-1 #### [facility] ([id number]) [address] [facility], [address] [place] [address] Thyroid profile includes TSH FT4on 05-07-2024 Free T4 [Mass/Vol] 0.97 ng/dL 0.61 - 1. 60 ng/dL [facility] TSH Qn 0.65 m[IU]/L [facility] Troponin I, High Sensitivity on 05-07-2024 Troponin I.cardiac High sensitivity method [Mass/Vol] 84594 ng/L Critically high NINF - 16 ng/L [facility] Troponin I.cardiac High sens itivity method [Mass/Vol]on 05-07-2024 Interpretation and review of laboratory results Abnormal [facility] TROPONIN I, HIGH SENSITIVITY 21729 ng/L Critically high <16 [facility] Comment on above: Result Comment: Elevations of hs-Troponin may be due to causes other than myocardial ischemia. Recommend serial hs-Troponin testing be performed. For the initial evaluation and management of chest pain patients, refer to the algorithms linked below. Emergency Patient: [email or web address] Inpatient: [email or web address] Performed By: #### 8 9579-7 #### [facility] ([id number]) [address] [facility], [address] [place] [address] XR CHEST 1 VWon 05-07-2024 XR CHEST 1 VW XR CHEST 1 VW Single view chest XR CHEST 1 VW History: dizziness Comparison: June 30, 2022 Impression: * No consolidation or pleural fluid. No acute findings. Finalized by Nnamdi Amaro MD on 05/07/2024 2:46 PM Normal [facility] XR PELVIS 1 OR 2 VWSon 05-07 XR PELVIS 1 OR 2 VWS XR PELVIS 1 OR 2 VW S XR PELVIS 1 OR 2 VWS fall Pelvic trauma Findings: There is grossly no fracture or destructive lesion. Impression: * No acute findings. * Consider MRI if you suspect occult process. Finalized by Nnamdi Amaro MD on 05/07/2024 2:43 PM Normal [facility] aPTT Coag (PPP) [Time]on aPTT Coag (Bld) [Time] 124 s Critically high 26-37 [facility] Comment on above: Performed By: #### C BCA, PINR, 37385-4 #### [facility] ([id number]) [address], [address] [place] [address] CBC AND AUTO DIFFon 04-06-19 ABSOLUTE BASOPHIL 0.1 X10E9/L Normal 0.0-0.2 [facility] Comment on above: Performed By: #### C BCA, CMP, FEPR, 42891-3, TSHR, 2276-4, HA1C, 2284-8, 2131-10 #### [facility] ([id number]) [address], [address] [place] [address] #### 69687-0 #### [facility] ([id number]) [address] [place] [address], [place] [address] ABSOLUTE NEUTROPHIL 4.2 X10E9/L Normal 1.5-6.6 [facility] Comment on above: Performed By: #### C BCA, CMP, FEPR, 74987-2, TSHR, 2276-4, HA1C, 2284-8, 2131-10 #### [facility] ([id number]) [address], [address] [place] [address] #### 49171-1 #### [facility] ([id number]) [address] [place] [address] Basophils/100 WBC (Bld) 1.3 % Normal [facility] Comment on above: Performed By: #### C BCA, CMP, FEPR, 48591-8, TSHR, 2276-4, HA1C, 2284-8, 2131-10 #### [facility] ([id number]) [address] [facility] [address] [place] [address] #### 01237-2 #### [facility] ([id number]) [address] [place] [address] Eosinophils (Bld) [#/Vol] 0.1 10*3/uL Normal 0.0-0.[address] [facility] Comment on above: Performed By: #### C BCA, CMP, FEPR, 66710-0, TSHR, 2276-4, HA1C, 2283-8, 2131-10 #### [facility] ([id number]) [address] [place] [address] [address] [place] [address] #### 67086-4 #### [facility] ([id number]) [address] [place] [address] Eosinophils/100 WBC (Bld) 1.8 % Normal [facility] Comment on above: Performed By: #### C BCA, CMP, FEPR, 80781-5, TSHR, 2276-4, HA1C, 2283-8, 2131-10 #### [facility] ([id number]) [address] [place] [address], [address] [place] [address] #### 19791-4 #### [facility] ([id number]) [address] [place] [address] Erythrocyte distribution width (RBC) [Ratio] 13.6 % Normal 11.5-15.[address] [facility] Comment on above: Performed By: #### C BCA, CMP, FEPR, 43231-7, TSHR, 2276-4, HA1C, 2283-09, 2131-10 #### [facility] ([id number]) [address], [address] [place] [address] #### 11539-9 #### [facility] ([id number]) [address] [place] [address] Hematocrit (Bld) [Volume fraction] 40.1 % Normal 35-[address] [facility] Comment on above: Performed By: #### C BCA, CMP, FEPR, 98324-6, TSHR, 2276-4, HA1C, 2283-09, 2131-10 #### [facility] ([id number]) [address], [address] [place] [address] #### 10805-2 #### [facility] ([id number]) [address] [place] [address] Hemoglobin (Bld) [Mass/Vol] 14.1 g/dL Normal 11.7-15.[address] [facility] Comment on above: Performed By: #### C BCA, CMP, FEPR, 77949-7, TSHR, 2276-4, HA1C, 2283-09, 2131-10 #### [facility] ([id number]) [address], [address] [place] [address] #### 71047-5 #### [facility] ([id number]) [address] [place] [address] Lymphocytes (Bld) [#/Vol] 1.4 10*3/uL Normal 1.0-3.[address] [facility] Comment on above: Performed By: #### C BCA, CMP, FEPR, 91998-8, TSHR, 2276-4, HA1C, 2283-09, 2131-10 #### [facility] ([id number]) [address], [address] [place] [address] #### 46379-0 #### [facility] ([id number]) [address] [place] [address]75 Lymphocytes/100 WBC (Bld) 23.1 % Normal [facility] Comment on above: Performed By: #### C BCA, CMP, FEPR, 09387-8, TSHR, 2276-4, HA1C, 2283-09, 2131-10 #### [facility] ([id number]) [address], [address] [place] [address] #### 38719-5 #### [facility] ([id number]) [address] [place] [address] 60344 MCH (RBC) [Entitic mass] 34.6 pg High 27-[address] [facility] Comment on above: Performed By: #### C BCA, CMP, FEPR, 97803-6, TSHR, 2276-4, HA1C, 2283-09, 2131-10 #### [facility] ([id number]) [address], [address] [place] [address] #### 95633-1 #### [facility] ([id number]) [address] [place] [address] MCHC (RBC) [Mass/Vol] 35.2 g/dL Normal 32-36 [facility] Comment on above: Performed By: #### C BCA, CMP, FEPR, 06525-2, TSHR, 2276-4, HA1C, 2283-09, 2131-10 #### [facility] ([id number]) [address], [address] [place] [address] #### 68284-1 #### [facility] ([id number]) [address] [place] [address] [place] [address] MCV (RBC) [Entitic vol] 98 fL Normal 80-100 [facility] Comment on above: Performed By: #### C BCA, CMP, FEPR, 10656-4, TSHR, 2276-4, HA1C, 2283-09, 2131-10 #### [facility] ([id number]) [address] [facility], [address] [address] #### 12296-8 #### [facility] ([id number]) [address] [place] [address]67[address] Monocytes (Bld) [#/Vol] 0.4 10*3/uL Normal 0-0.[address] [facility] Comment on above: Performed By: #### C BCA, CMP, FEPR, 56965-5, TSHR, 6-4, HA1C, 2283-09, 2131-10 #### [facility] ([id number]) [address] [facility], [address] [place] [address] #### 28149-5 #### [facility] ([id number]) [address] [place] [address]34 Monocytes/100 WBC (Bld) 6.7 % Normal [facility] Comment on above: Performed By: #### C BCA, CMP, FEPR, 18353-8, TSHR, 6-4, HA1C, 2283-09, 2131-10 #### [facility] ([id number]) [address] [facility], [address] [place] [address] #### 98782-8 #### [facility] ([id number]) [address] [place] [address]407 Neutrophils/100 WBC (Bld) 67.1 % Normal [facility] Comment on above: Performed By: #### C BCA, CMP, FEPR, 90607-3, TSHR, 2276-4, HA1C, 2283-09, 2131-10 #### [facility] ([id number]) [address], [address] [place] [address] #### 00238-8 #### [facility] ([id number]) [address] [place] [address]807 Platelet mean volume (Bld) [Entitic vol] 8.2 fL Normal 7-[address] [facility] Comment on above: Performed By: #### C BCA, CMP, FEPR, 71769-4, TSHR, 2276-4, HA1C, 2283-09, 2131-10 #### [facility] ([id number]) [address], [address] [place] [address] #### 10122-6 #### [facility] ([id number]) [address] [place] [address]136 Platelets (Bld) [#/Vol] 266 10*3/uL Normal 150-[address] [facility] Comment on above: Performed By: #### C BCA, CMP, FEPR, 17088-2, TSHR, 2276-4, HA1C, 2283-09, 2131-10 #### [facility] ([id number]) [address], [address] [place] [address] #### 65216-6 #### [facility] ([id number]) [address] [place] [address]31 RBC COUNT 4.08 X10E12/L Normal 3.80-5.[address] [facility] Comment on above: Performed By: #### C BCA, CMP, FEPR, 69073-5, TSHR, 2276-4, HA1C, 2283-09, 2131-10 #### [facility] ([id number]) [address], [address] [place] [address] #### 47918-0 #### [facility] ([id number]) [address] [place] [address] 11578 WBC (Bld) [#/Vol] 6.2 10*3/uL Normal 4.0-11.0 [facility] Comment on above: Performed By: #### C BCA, CMP, FEPR, 44299-2, TSHR, 2276-4, HA1C, 2284-8, 2131-9 #### [facility] ([id number]) [address] [facility], [address] [place] [address] #### 24894-5 #### [facility] ([id number]) [address] [place] [address] COMPREHENSIVE METABOLIC PANE Brock 04-06-2024 Albumin [Mass/Vol] 4.2 g/dL Normal 3.2-5.3 [facility] Comment on above: Performed By: #### C BCA, CMP, FEPR, 35524-5, TSHR, 2276-4, HA1C, 2284-8, 9 #### [facility] ([id number]) [address] [facility], [address] [place] [address] #### 76718-1 #### [facility] ([id number]) [address] [place] [address] 56627 ALP [Catalytic activity/Vol] 73 U/L Normal 39-[address] [facility] Comment on above: Performed By: #### C BCA, CMP, FEPR, 66775-7, TSHR, 2276-4, HA1C, 2284-8, 2131-9 #### [facility] ([id number]) [address] [place] [address], [address] [place] [address] #### 94920-9 #### [facility] ([id number]) [address] [place] [address] 20711 ALT [Catalytic activity/Vol] 8 U/L Normal 0-[address] [facility] Comment on above: Performed By: #### C BCA, CMP, FEPR, 21670-8, TSHR, 2276-4, HA1C, 4-8, 2131-10 #### [facility] ([id number]) [address], [address] [place] [address] #### 58073-5 #### [facility] ([id number]) [address] [place] [address] 64609 Anion gap [Moles/Vol] 8 mmol/L Normal 5-15 [facility] Comment on above: Performed By: #### C BCA, CMP, FEPR, 78713-9, TSHR, 2276-4, HA1C, 2283-8, 2131-10 #### [facility] ([id number]) [address], [address] [place] [address] #### 04971-7 #### [facility] ([id number]) [address] [place] [address] 39614 AST [Catalytic activity/Vol] 16 U/L Normal 0-[address] [facility] Comment on above: Performed By: #### C BCA, CMP, FEPR, 17809-3, TSHR, 2276-4, HA1C, 2283-, 2131-10 #### [facility] ([id number]) [address], [address] [place] [address] #### 42131-1 #### [facility] ([id number]) [address] [place] [address] 33370 Bilirubin [Mass/Vol] 0.3 mg/dL Normal 0.3-1.2 [facility] Comment on above: Performed By: #### C BCA, CMP, FEPR, 09447-1, TSHR, 2276-4, HA1C, 2283-, 2131-10 #### [facility] ([id number]) [address], [address] [place] [address] #### 32581-5 #### [facility] ([id number]) [address] [place] [address] 77648 Calcium [Mass/Vol] 9.0 mg/dL Normal 8.5-10.5 [facility] Comment on above: Performed By: #### C BCA, CMP, FEPR, 16587-0, TSHR, 2276-4, HA1C, 2284-8, 2131-9 #### [facility] ([id number]) [address] [facility], [address] [place] [address] #### 50071-2 #### [facility] ([id number]) [address] [place] [address] 08191 Chloride [Moles/Vol] 101 mmol/L Normal 98-109 [facility] Comment on above: Performed By: #### C BCA, CMP, FEPR, 69177-4, TSHR, 2276-4, HA1C, 4-8, 2131-10 #### [facility] ([id number]) [address] [facility], [address] [place] [address] #### 03778-3 #### [facility] ([id number]) [address] [place] [address] 61329 CO2 [Moles/Vol] 27 mmol/L Normal 22-[address] [facility] Comment on above: Performed By: #### C BCA, CMP, FEPR, 25727-4, TSHR, 2276-4, HA1C, 4-8, 2131-10 #### [facility] ([id number]) [address] [facility], [address] [place] [address] #### 39557-3 #### [facility] ([id number]) [address] [place] [address] 23128 Creatinine [Mass/Vol] 0.67 mg/dL Normal 0.40-1.00 [facility] Comment on above: Result Comment: METH OD TRACEABLE TO IDMS STANDARD Performed By: #### C BCA, CMP, FEPR, 37307-0, TSHR, 2276-4, HA1C, 2283-8, 2131-10 #### [facility] ([id number]) [address] [facility], [address] [place] [address] #### 75541-7 #### [facility] ([id number]) [address] [place] [address]1108 eGFR (CKD-EPI) NON-RACE DEPENDENT >90 Normal >[address] [facility] Comment on above: Result Comment: Reported eGFR is based on the CKD-EPI 2020 equation that does not use a race coefficient. Performed By: #### C BCA, CMP, FEPR, 08947-5, TSHR, 2276-4, HA1C, 2283-09, 2131-10 #### [facility] ([id number]) [address] [facility], [address] [place] [address] #### 99889-8 #### [facility] ([id number]) [address] [place] [address] 10040 Glucose [Mass/Vol] 94 mg/dL Normal 65-99 [facility] Comment on above: Performed By: #### C BCA, CMP, FEPR, 15657-7, TSHR, 2276-4, HA1C, 2283-09, 2131-10 #### [facility] ([id number]) [address] [facility], [address] [place] [address] #### 98440-9 #### [facility] ([id number]) [address] [place] [address] 14024 Potassium [Moles/Vol] 3.8 mmol/L Normal 3.5-5.0 [facility] Comment on above: Performed By: #### C BCA, CMP, FEPR, 08067-2, TSHR, 2276-4, HA1C, 2283-, 2131-10 #### [facility] ([id number]) [address] [facility], [address] [place] [address] #### 45549-4 #### [facility] ([id number]) [address] [place] [address] 58376 Protein [Mass/Vol] 6.8 g/dL Normal 6.0-8.0 [facility] Comment on above: Performed By: #### C BCA, CMP, FEPR, 13127-3, TSHR, 2276-4, HA1C, 2283-8, 2131-10 #### [facility] ([id number]) [address] [facility], [address] [place] [address] #### 32239-3 #### [facility] ([id number]) [address] [place] [address] 98344 Sodium [Moles/Vol] 136 mmol/L Normal 134-146 [facility] Comment on above: Performed By: #### C BCA, CMP, FEPR, 75298-6, TSHR, 2276-4, HA1C, 2283-8, 2131-10 #### [facility] ([id number]) [address] [facility], [address] [place] [address] #### 56676-6 #### [facility] ([id number]) [address] [place] [address] 47435 Urea nitrogen [Mass/Vol] 5 mg/dL Normal 5-[address] [facility] Comment on above: Performed By: #### C BCA, CMP, FEPR, 33309-7, TSHR, 2276-4, HA1C, 2283-8, 2131-10 #### [facility] ([id number]) [address] [facility], [address] [place] [address] #### 13364-4 #### [facility] ([id number]) [address] [place] [address] 43935 FERRITINon 04-06-2024 Ferritin [Mass/Vol] 17 ng/mL Normal 11-307 [facility] Comment on above: Performed By: #### C BCA, CMP, FEPR, 92643-1, TSHR, 2276-4, HA1C, 2284-8, 2131-10 #### [facility] ([id number]) [address] [facility], [address] [place] [address] #### 49939-1 #### [facility] ([id number]) [address] [place] [address] 14715 Folate [Mass/Vol]on 04-06-19 25 FOLIC ACID 4.3 ng/mL Low >5.[address] [facility] Comment on above: Result Comment: NEW REFERENCE RANGE Performed By: #### C BCA, CMP, FEPR, 27989-6, TSHR, 2276-4, HA1C, 2283-, 2131-10 #### [facility] ([id number]) [address] [facility], [address] [place] [address] #### 45676-4 #### [facility] ([id number]) [address] [place] [address] 59126 HGB A1C (GLYCO-HGB)on 2024 Glucose [Mass/Vol] 123 mg/dL Normal [facility] Comment on above: Performed By: #### C BCA, CMP, FEPR, 79150-3, TSHR, 2276-4, HA1C, 2283-8, 2131-10 #### [facility] ([id number]) [address] [facility], [address] [place] [address] #### 86717-2 #### [facility] ([id number]) [address] [place] [address] 02014 HbA1c (Bld) [Mass fraction] 5.9 % High 4.4-5.[address] [facility] Comment on above: Result Comment: NOTE ADA Guidelines Result HgbA1c Normal : less than 5.7 % Prediabetes : 5.7 % to 6.4 % Diabetes : > 6.4 % Use with caution in patients with abnormal hemoglobin variants as the half-life of red blood cells and in vivo glycation rates are affected. Performed By: #### C BCA, CMP, FEPR, 95659-0, TSHR, 2276-4, HA1C, 2284-8, 2131-10 #### [facility] ([id number]) [address] [place] [address], [facility] [address] [place] [address] #### [id number] #### [facility] ([id number]) [address] [place] [address] IRON PROFILEon 04-06-2024 Iron [Mass/Vol] 30 ug/dL Low 50-[address] [facility] Comment on above: Performed By: #### C BCA, CMP, FEPR, 59876-4, TSHR, 2276-4, HA1C, 2283-8, 2131-10 #### [facility] ([id number]) [address] [place] [address], [facility] [address] [place] [address] #### [id number] #### [facility] ([id number]) [address] [place] [address]4798 IRON BINDING 358 ug/dL Normal 250-[address] [facility] Comment on above: Performed By: #### C BCA, CMP, FEPR, 11306-3, TSHR, 2276-4, HA1C, 2283-8, 2131-10 #### [facility] ([id number]) [address] [place] [address], [facility] [address] [place] [address] #### 82191-0 #### [facility] ([id number]) [address] [place] [address] IRON SATURATION 8 % SATURATION Low 15-50 [facility] Comment on above: Performed By: #### C BCA, CMP, FEPR, 58649-5, TSHR, 2276-4, HA1C, 2283-, 2131-10 #### [facility] ([id number]) [address], [address] [place] [address] #### [id number] #### [facility] ([id number]) [address] [place] [address] Lipid 1996 panelon 5 Cholesterol [Mass/Vol] 202 mg/dL High 150-200 [facility] Comment on above: Performed By: #### C BCA, CMP, FEPR, 88866-7, TSHR, 2276-4, HA1C, 2283-09, 2131-10 #### [facility] ([id number]) [address], [address] [place] [address] #### [id number] #### [facility] ([id number]) [address] [place] [address] Cholesterol in HDL [Mass/Vol] 58 mg/dL Normal >[address] [facility] Comment on above: Result Comment: HDL <40 mg/dL - High Risk HDL > or = 40mg/dL- Desirable HDL >60 mg/dL - Negative Risk Performed By: #### C BCA, CMP, FEPR, 32033-6, TSHR, 2276-4, HA1C, 2283-, 2131-10 #### [facility] ([id number]) [address], [address] [place] [address] #### [id number] #### [facility] ([id number]) [address] [place] [address] Cholesterol in LDL [Mass/Vol] 133 mg/dL High <[address] [facility] Comment on above: Result Comment: LDL <100 mg/dL - Desirable LDL >160 mg/dL - High Risk Performed By: #### C BCA, CMP, FEPR, 25950-6, TSHR, 2276-4, HA1C, 2284-8, 9 #### [facility] ([id number]) [address], [address] [place] [address] #### 12200-2 #### [facility] ([id number]) [address] [place] [address] Cholesterol in VLDL [Mass/Vol] 11 mg/dL Normal 0-[address] [facility] Comment on above: Performed By: #### C BCA, CMP, FEPR, 10202-1, TSHR, 2276-4, HA1C, 4-8, 2131-10 #### [facility] ([id number]) [address], [address] [place] [address] #### 02834-4 #### [facility] ([id number]) [address] [place] [address] CHOLESTEROL:HDL 3.5 Normal 1.0-5.[address] [facility] Comment on above: Performed By: #### C BCA, CMP, FEPR, 07923-8, TSHR, 2276-4, HA1C, 4-8, 9 #### [facility] ([id number]) [address] [place] [address], [address] [place] [address] #### 57072-9 #### [facility] ([id number]) [address] [place] [address] Triglyceride [Mass/Vol] 56 mg/dL Normal 27-150 [facility] Comment on above: Performed By: #### C BCA, CMP, FEPR, 34187-3, TSHR, 2276-4, HA1C, 2283-, 2131-10 #### [facility] ([id number]) [address], [address] [place] [address] #### 00946-1 #### [facility] ([id number]) [address] [facility], [place] [address] TSH WITH REFLEXon 04-06-2024 TSH 2.47 uIU/mL Normal 0.49-4.[address] [facility] Comment on above: Performed By: #### C BCA, CMP, FEPR, 86537-0, TSHR, 2276-4, HA1C, 2283-09, 2131-10 #### [facility] ([id number]) [address] [facility], [address] [place] [address] #### 23055-2 #### [facility] ([id number]) [address] [facility], [place] [address] Thiamine (Bld) [Moles/Vol]on 04-06-2024 Thiamin (Vitamin B1), WB 78 nmol/L Normal 70-[address] [facility] Comment on above: Result Comment: NOTE ADDITIONAL INFORMATION This test was developed and its performance characteristics determined by [facility] in a manner consistent with CLIA requirements. This test has not been cleared or approved by the U.S. Food and Drug Administration. Test Performed by: [facility] [address] [place] [address] Ambulatory Care Nurse: Ester Macdonald Ph.D.; CLIA# [id number] Performed By: #### C BCA, CMP, FEPR, 00976-9, TSHR, 2276-4, HA1C, 2283-8, 2131-10 #### [facility] ([id number]) [address], [address] [place] [address] #### 30484-0 #### [facility] ([id number]) [address] [facility], [place] [address] VITAMIN B12on 04-06-2024 Cobalamin (Vitamin B12) [Mass/Vol] 253 pg/mL Normal 180-914 [facility] Comment on above: Performed By: #### C BCA, CMP, FEPR, 45664-4, TSHR, 2276-4, HA1C, 2284-8, 2132-9 #### [facility] ([id number]) [address] [place] [address], [address] [place] [address] #### 19361-1 #### [facility] ([id number]) [address] [facility], [place] [address] A1C with Estimated Average G luon 07-09-2021 Glucose [Mass/Vol] 111 mg/dL Normal [facility] Comment on above: Result Comment: PERF ORMED BY: [place] [address] PATHOLOGIST FIELD COLLECTOR JONAS BOYCE M.D. Performed By: #### C BC, CMP, A1C WTH eA #### [facility] [address] [place] [id number] [facility] HbA1c (Bld) [Mass fraction] 5.5 % Normal 4.3-5.6 [facility] Comment on above: Result Comment: Incr eased risk for diabetes: 5.7 - 6.4 diabetes: >6.4 glycemic control for adults with diabetes: <7.0 Performed By: #### C BC, CMP, A1C WTH eA #### [facility] [address] [place], [place] [address] [place] Albumin [Mass/volume] in Ser um or PlasmaOrdered By: Joni Branch on 07-09-2021 Albumin [Mass/Vol] 3.7 g/dL 3.2-5.5 [facility] Basophils Auto (Bld) [#/Vol] Ordered By: Joni Branch on 07-09-2021 Basophils (Bld) [#/Vol] 0.0 10*3/uL 0.0-0.2 [facility] Basophils/100 WBC Auto (Bld) Ordered By: Joni Branch on 07-09-2021 Basophils/100 WBC (Bld) 1.0 % [facility] Bilirubin Test strip Ql (U)O rdered By: Joni Branch on 07-09-2021 Bilirubin Ql (U) Negative Negative [facility] Blood hemoglobin measurement (mass/volume)Ordered By: Joni Branch on 07-09-2021 Hemoglobin (Bld) [Mass/Vol] 13.8 g/dL 11.8-15.4 [facility] Blood leukocytes automated c ount (number/volume)Ordered By: Joni Branch on 07-09-2021 WBC (Bld) [#/Vol] 4.6 10*3/uL 4.5-11.0 [facility] Color Auto (U)Ordered By: Ab jasmine Branch on 07-09-2021 Color (U) Yellow Yellow [facility] Complete Blood Count Auto Di ffon 07-09-2021 Basophils (Bld) [#/Vol] 0.0 10*3/uL Normal 0.0-0.2 [facility] Comment on above: Result Comment: PERF ORMED BY: [facility] [address] [place] [address] PATHOLOGIST FIELD COLLECTOR JONAS BOYCE M.D. Performed By: #### C BC, CMP, A1C WT eA #### [facility] [address] [id number] [place] Basophils/100 WBC (Bld) 1.0 % Normal . [facility] Comment on above: Performed By: #### C BC, CMP, A1C WTH eA #### [facility] [address] [id number] [place] Eosinophils (Bld) [#/Vol] 0.2 10*3/uL Normal 0.0-0.45 [facility] Comment on above: Performed By: #### C BC, CMP, A1C WTH eA #### [facility] [address] [place] [address] [place] Eosinophils/100 WBC (Bld) 4.1 % Normal . [facility] Comment on above: Performed By: #### C BC, CMP, A1C WTH eA #### [address] Erythrocyte distribution width (RBC) [Ratio] 13.2 % Normal 11.9-15.3 [facility] Comment on above: Performed By: #### C BC, CMP, A1C WTH eA #### [address] Hematocrit (Bld) [Volume fraction] 40.3 % Normal 34.0-46.4 [facility] Comment on above: Performed By: #### C BC, CMP, A1C WTH eA #### [address] Hemoglobin (Bld) [Mass/Vol] 13.8 g/dL Normal 11.8-15.4 [facility] Comment on above: Performed By: #### C BC, CMP, A1C WTH eA #### [address] Lymphocytes (Bld) [#/Vol] 1.3 10*3/uL Normal 1.00-4.8 [facility] Comment on above: Performed By: #### C BC, CMP, A1C WTH eA #### [place] [address] [place] Lymphocytes/100 WBC (Bld) 27.5 % Normal . [facility] Comment on above: Performed By: #### C BC, CMP, A1C WTH eA #### [address] MCH (RBC) [Entitic mass] 35.1 pg High 24.7-34.3 [facility] Comment on above: Performed By: #### C BC, CMP, A1C WTH eA #### [address] [place] [address] [place] MCV (RBC) [Entitic vol] 102.6 fL High 80-100 [facility] Comment on above: Performed By: #### C BC, CMP, A1C WTH eA #### [facility] [address] Mean Corpuscular HGB Conc 34.2 g/dL Normal 32.0-35.0 [facility] Comment on above: Performed By: #### C BC, CMP, A1C WTH eA #### [facility] [address] [place] [address] [place] Monocytes (Bld) [#/Vol] 0.3 10*3/uL Normal 0.0-0.8 [facility] Comment on above: Performed By: #### C BC, CMP, A1C WTH eA #### [facility] [address] [place] [address] [place] Monocytes/100 WBC (Bld) 7.4 % Normal . [facility] Comment on above: Performed By: #### C BC, CMP, A1C WTH eA #### [facility] [address] [place] [address] [place] Neutrophils (Bld) [#/Vol] 2.7 10*3/uL Normal 1.8-7.7 [facility] Comment on above: Performed By: #### C BC, CMP, A1C WTH eA #### [facility] [address] [place] [address] [place] Neutrophils/100 WBC (Bld) 60.0 % Normal . [facility] Comment on above: Performed By: #### C BC, CMP, A1C WTH eA #### [facility] [address] [place] [address] [place] Nucleated RBC/100 WBC (Bld) [Ratio] 0.1 % Normal 0-0.5 [facility] Comment on above: Performed By: #### C BC, CMP, A1C WTH eA #### [facility] [address] [place] [address] [place] Platelet mean volume (Bld) [Entitic vol] 7.8 fL Normal 6.3-10.7 [facility] Comment on above: Performed By: #### C BC, CMP, A1C WTH eA #### [facility] [address] Platelets (Bld) [#/Vol] 273 10*3/uL Normal 150-450 [facility] Comment on above: Performed By: #### C BC, CMP, A1C WTH eA #### [facility] [address] [place] [address] RBC (Bld) [#/Vol] 3.93 10*6/uL Normal 3.60-5.00 [facility] Comment on above: Performed By: #### C BC, CMP, A1C WT eA #### [address] WBC (Bld) [#/Vol] 4.6 10*3/uL Normal 4.5-11.0 [facility] Comment on above: Performed By: #### C BC, CMP, A1C WT eA #### [address] Comprehensive Metabolic Pane brock 07-09-2021 Albumin [Mass/Vol] 3.7 g/dL Normal 3.2-5.5 [facility] Comment on above: Performed By: #### L IPID, TSH3 wRFLX, [id number] #### [address] Albumin/Globulin [Mass ratio] 1.3 {ratio} Normal [facility] Comment on above: Performed By: #### L IPID, TSH3 wRFLX, [id number] #### [facility] [address] [place] [address] ALP [Catalytic activity/Vol] 52 U/L Normal 32-92 [facility] Comment on above: Performed By: #### L IPID, TSH3 wRFLX, [id number] #### [place] [id number] [facility] ALT [Catalytic activity/Vol] 20 U/L Normal 10-60 [facility] Comment on above: Performed By: #### L IPID, TSH3 wRFLX, [id number] #### [facility] [address] [place] [address] AST [Catalytic activity/Vol] 21 U/L Normal 10-42 [facility] Comment on above: Performed By: #### L IPID, TSH3 wRFLX, [id number] #### [facility] [address] [place] [address] Bilirubin [Mass/Vol] 0.6 mg/dL Normal 0.3-1.2 [facility] Comment on above: Performed By: #### L IPID, TSH3 wRFLX, [id number] #### [facility] [address] [place] [address] Calcium [Mass/Vol] 9.5 mg/dL Normal 8.2-10.2 [facility] Comment on above: Performed By: #### L IPID, TSH3 wRFLX, [id number] #### [facility] [address] [place] [address] Chloride [Moles/Vol] 100 mmol/L Normal 95-114 [facility] Comment on above: Performed By: #### L IPID, TSH3 wRFLX, [id number] #### [facility] [address] [place] [address] CO2 [Moles/Vol] 30.1 mmol/L High 22.0-30.0 [facility] Comment on above: Performed By: #### L IPID, TSH3 wRFLX, [id number] #### [facility] [address] [place] [address] Creatinine [Mass/Vol] 0.57 mg/dL Normal 0.44-1.[address] [facility] Comment on above: Performed By: #### L IPID, TSH3 wRFLX, [id number] #### [facility] [address] [place] [address] Creatinine Clr Calc Pharmacy 77.27 Normal [facility] Comment on above: Result Comment: PERF ORMED BY: [place] [address] PATHOLOGIST FIELD COLLECTOR JONAS BOYCE M.D. Performed By: #### L IPID, TSH3 wRFLX, [id number] #### [facility] [address] Estimated GFR ( Vani > 60 [facility] Comment on above: Result Comment: GFR estimated reference range: According to KDOQI guidelines, <60 ml/min/1.73m2 is sufficient to diagnose a patient with chronic kidney disease. Performed By: #### L IPID, TSH3 wRFLX, [id number] #### [facility] [address] Estimated GFR (Non- Am > 60 Normal [facility] Comment on above: Performed By: #### L IPID, TSH3 wRFLX, [id number] #### [facility] [address] Globulin (S) [Mass/Vol] 2.8 g/dL Normal [facility] Comment on above: Performed By: #### L IPID, TSH3 wRFLX, [id number] #### [address] Glucose [Mass/Vol] 90 mg/dL Normal 70-100 [facility] Comment on above: Result Comment: [place] Glucose Reference Range is dependent on time and content of last meal. Glucose of more than 200 mg/dL in a nonstressed, ambulatory subject supports the diagnosis of Diabetes Mellitus. ADA recommended reference range Performed By: #### L IPID, TSH3 wRFLX, [id number] #### [facility] [address] Potassium [Moles/Vol] 3.6 mmol/L Normal 3.5-5.[address] [facility] Comment on above: Performed By: #### L IPID, TSH3 wRFLX, [id number] #### [facility] [address] Protein [Mass/Vol] 6.5 g/dL Normal 6.1-7.9 [facility] Comment on above: Performed By: #### L IPID, TSH3 wRFLX, [id number] #### [facility] [address] [place] [address] [place] Sodium [Moles/Vol] 140 mmol/L Normal 136-146 [facility] Comment on above: Performed By: #### L IPID, TSH3 wRFLX, [id number] #### [facility] [address] [place] [id number] [place] Urea nitrogen [Mass/Vol] 12 mg/dL Normal 9-23 [facility] Comment on above: Performed By: #### L IPID, TSH3 wRFLX, [id number] #### [facility] [address] [place] [address] [place] Creatinine and Glomerular fi ltration rate.predicted panel (S/P/Bld)Ordered By: Joni Branch on 07-09-2021 Creatinine [Mass/Vol] 0.57 mg/dL 0.44-1.[address] [facility] Eosinophils Auto (Bld) [#/Vo l]Ordered By: Joni Branch on 07-09-2021 Eosinophils (Bld) [#/Vol] 0.2 10*3/uL 0.0-0.45 [facility] Eosinophils/100 WBC Auto (Bl d)Ordered By: Joni Branch on 07-09-2021 Eosinophils/100 WBC (Bld) 4.1 % [facility] Erythrocyte distribution wid th Auto (RBC) [Ratio]Ordered By: Joni Branch on 07-09-2021 Erythrocyte distribution width (RBC) [Ratio] 13.2 % 11.9-15.3 [facility] Estimated glomerular filtrat ion rate (GFR) non- AmericanOrdered By: Joni Branch on 07-09-2021 GFR/1.73 sq M.predicted among non-blacks MDRD (S/P/Bld) [Vol rate/Area] > 60 mL/Min [facility] Globulin Calc (S) [Mass/Vol] Ordered By: Joni Branch on 07-09-2021 Globulin (S) [Mass/Vol] 2.8 g/dL [facility] Glucose mean value [Mass/vol ume] in Blood Estimated from glycated hemoglobinOrdered By: Joni Branch on 07-09-2021 Average glucose Estimated from glycated hemoglobin (Bld) [Mass/Vol] 111 mg/dL [facility] Hematocrit Auto (Bld) [Volum e fraction]Ordered By: Joni Branch on 07-09-2021 Hematocrit (Bld) [Volume fraction] 40.3 % 34.0-46.4 [facility] Hemoglobin A1c percentageOrd ered By: Joni Branch on 07-09-2021 HbA1c (Bld) [Mass fraction] 5.5 % 4.3-5.6 [facility] Comment on above: Increased risk for d iabetes: 5.7 - 6.4 diabetes: >6.4 glycemic control for adults with diabetes: <7.0 Ketones Auto test strip (U) [Mass/Vol]Ordered By: Joni Branch on 07-09-2021 Ketones (U) [Mass/Vol] Negative Negative [facility] - Hematology and Cell countsOrdered By: Joni Branch on 07-09-2021 Nucleated RBC/100 WBC (Bld) [Ratio] 0.1 % 0-0.5 [facility] Lymphocytes Auto (Bld) [#/Vo l]Ordered By: Joni Branch on 07-09-2021 Lymphocytes (Bld) [#/Vol] 1.3 10*3/uL 1.00-4.8 [facility] Lymphocytes/100 WBC Auto (Bl d)Ordered By: Joni Branch on 07-09-2021 Lymphocytes/100 WBC (Bld) 27.5 % [facility] MCH Auto (RBC) [Entitic mass ]Ordered By: Joni Branch on 07-09-2021 MCH (RBC) [Entitic mass] 35.1 pg 24.7-34.3 [facility] MCHC Auto (RBC) [Mass/Vol]Or dered By: Joni Branch on 07-09-2021 MCHC (RBC) [Mass/Vol] 34.2 g/dL 32.0-35.[address] [facility] MCV Auto (RBC) [Entitic vol] Ordered By: Joni Branch on 07-09-2021 MCV (RBC) [Entitic vol] 102.6 fL 80-100 [facility] Monocytes Auto (Bld) [#/Vol] Ordered By: Joni Branch on 07-09-2021 Monocytes (Bld) [#/Vol] 0.3 10*3/uL 0.0-0.8 [facility] Monocytes/100 WBC Auto (Bld) Ordered By: Joni Branch on 07-09-2021 Monocytes/100 WBC (Bld) 7.4 % [facility] Neutrophils Auto (Bld) [#/Vo l]Ordered By: Joni Branch on 07-09-2021 Neutrophils (Bld) [#/Vol] 2.7 10*3/uL 1.8-7.7 [facility] Neutrophils/100 WBC Auto (Bl d)Ordered By: Joni Branch on 07-09-2021 Neutrophils/100 WBC (Bld) 60.0 % [facility] Nitrite Test strip Ql (U)Ord ered By: Joni Branch on 07-09-2021 Nitrite Ql (U) Negative Negative [facility] No Panel InformationOrdered By: Joni Branch on 07-09-2021 Estimated GFR () > 60 mL/Min [facility] Comment on above: GFR estimated refere nce range: According to KDOQI guidelines, <60 ml/min/1.73m2 is sufficient to diagnose a patient with chronic kidney disease. Pharmacy Creatinine Clearance (Chem 77.27 [facility] Platelet mean volume Auto (B ld) [Entitic vol]Ordered By: Joni Branch on 07-09-2021 Platelet mean volume (Bld) [Entitic vol] 7.8 fL 6.3-10.7 [facility] Platelets Auto (Bld) [#/Vol] Ordered By: Joni Branch on 07-09-2021 Platelets (Bld) [#/Vol] 273 10*3/uL 150-450 [facility] Protein Auto test strip (U) [Mass/Vol]Ordered By: Joni Branch on 07-09-2021 Protein (U) [Mass/Vol] Negative Negative [facility] Protein [Mass/volume] in Ser um or PlasmaOrdered By: oJni Branch on 07-09-2021 Protein [Mass/Vol] 6.5 g/dL 6.1-7.9 [facility] RBC Auto (Bld) [#/Vol]Ordere d By: Joni Branch on 07-09-2021 RBC (Bld) [#/Vol] 3.93 10*6/uL 3.60-5.00 [facility] Serum or plasma alanine hernandez otransferase measurement without P-5'-P (enzymatic activiOrdered By: Joni Branch on 07-09-2021 ALT No additional P-5'-P [Catalytic activity/Vol] 20 U/L 10-60 [facility] Serum or plasma albumin/glob ulin mass ratioOrdered By: Joni Branch on 07-09-2021 Albumin/Globulin [Mass ratio] 1.3 {ratio} [facility] Serum or plasma alkaline triston sphatase measurement (enzymatic activity/volume)Ordered By: Joni Branch on 07-09-2021 ALP [Catalytic activity/Vol] 52 U/L 32-92 [facility] Serum or plasma aspartate am inotransferase measurement (enzymatic activity/volume)Ordered By: Joni Branch on 07-09-2021 AST [Catalytic activity/Vol] 21 U/L 10-42 [facility] Serum or plasma calcium wendi urement (mass/volume)Ordered By: Joni Branch on 07-09-2021 Calcium [Mass/Vol] 9.5 mg/dL 8.2-10.2 [facility] Serum or plasma chloride olivia surement (moles/volume)Ordered By: Joni Branch on 07-09-2021 Chloride [Moles/Vol] 100 mmol/L 95-114 [facility] Serum or plasma glucose wendi urement (mass/volume)Ordered By: Joni Branch on 07-09-2021 Glucose [Mass/Vol] 90 mg/dL 70-100 [facility] Comment on above: ADA recommended refe rence range Random Glucose Reference Range is dependent on time and content of last meal. Glucose of more than 200 mg/dL in a nonstressed, ambulatory subject supports the diagnosis of Diabetes Mellitus. Serum or plasma potassium me asurement (moles/volume)Ordered By: Joni Branch on 07-09-2021 Potassium [Moles/Vol] 3.6 mmol/L 3.5-5.[address] [facility] Serum or plasma sodium measu rement (moles/volume)Ordered By: Joni Branch on 07-09-2021 Sodium [Moles/Vol] 140 mmol/L 136-146 [facility] Serum or plasma total biliru bin measurement (mass/volume)Ordered By: Joni Branch on 07-09-2021 Bilirubin [Mass/Vol] 0.6 mg/dL 0.3-1.2 [facility] Serum or plasma total carbon dioxide measurement (moles/volume)Ordered By: Joni Branch on 07-09-2021 CO2 [Moles/Vol] 30.1 mmol/L 22.0-30.0 [facility] Serum or plasma urea nitroge n measurement (mass/volume)Ordered By: Joni Branch on 07-09-2021 Urea nitrogen [Mass/Vol] 12 mg/dL 9-23 [facility] Specific gravity Auto test s trip (U) [Rel density]Ordered By: Joni Branch on 07-09-2021 Specific gravity (U) [Rel density] 1.005 1.001-1.030 [facility] Urinalysison 07-09-2021 Appearance (U) Clear Normal Clear [facility] Comment on above: Order Comment: Name Collection Type:: Clean-Voided Midstream Performed By: #### U A #### [facility] [address] [place] [address] [place] Bilirubin,Urine Negative Normal Negative [facility] Comment on above: Order Comment: Name Collection Type:: Clean-Voided Midstream Performed By: #### U A #### [facility] [address] [place] [address] [place] Color (U) Yellow Normal Yellow [facility] Comment on above: Order Comment: Name Collection Type:: Clean-Voided Midstream Performed By: #### U A #### [facility] [address] [place] [address] [place] Glucose Ql (U) Normal Normal Normal [facility] Comment on above: Order Comment: Name Collection Type:: Clean-Voided Midstream Performed By: #### U A #### [facility] [address] [place] [address] [place] Ketones Ql (U) Negative Normal Negative [facility] Comment on above: Order Comment: Name Collection Type:: Clean-Voided Midstream Performed By: #### U A #### [facility] [address] [place] [address] Leukocyte esterase Test strip Ql (U) Negative Normal Negative [facility] Comment on above: Order Comment: Name Collection Type:: Clean-Voided Midstream Performed By: #### U A #### [facility] [address] [place] [address] [place] Nitrite,Urine Negative Normal Negative [facility] Comment on above: Order Comment: Name Collection Type:: Clean-Voided Midstream Performed By: #### U A #### [facility] [address] [place] [address] [place] Occult Blood,Urine Negative Normal Negative [facility] Comment on above: Order Comment: Name Collection Type:: Clean-Voided Midstream Result Comment: PERF ORMED BY: [place] [address] PATHOLOGIST FIELD COLLECTOR JONAS BOYCE M.D. Performed By: #### U A #### [address] pH (U) 7.0 [pH] Normal 5.0-9.0 [facility] Comment on above: Order Comment: Name Collection Type:: Clean-Voided Midstream Performed By: #### U A #### [address] Protein,Urine Negative Normal Negative [facility] Comment on above: Order Comment: Name Collection Type:: Clean-Voided Midstream Performed By: #### U A #### [address] Specificy [place],Urine 1.005 Normal 1.001-1.030 [facility] Comment on above: Order Comment: Name Collection Type:: Clean-Voided Midstream Performed By: #### U A #### [address] Urobilinogen,Urine Normal Normal Normal [facility] Comment on above: Order Comment: Name Collection Type:: Clean-Voided Midstream Performed By: #### U A #### [address] Urine clarity by refractomet ry automatedOrdered By: Joni Branch on 07-09-2021 Clarity Refractometry automated (U) Clear Clear [facility] Urine glucose measurement by automated test strip (mass/volume)Ordered By: Joni Branch on 07-09-2021 Glucose Auto test strip (U) [Mass/Vol] Normal mg/dL Normal [facility] Urine hemoglobin detection b y automated test stripOrdered By: Joni Branch on 07-09-2021 Hemoglobin Auto test strip Ql (U) Negative Negative [facility] Urine leukocyte esterase det ection by automated test stripOrdered By: Joni Branch on 07-09-2021 Leukocyte esterase Auto test strip Ql (U) Negative Negative [facility] Urobilinogen Auto test strip (U) [Mass/Vol]Ordered By: Joni Branch on 07-09-2021 Urobilinogen (U) [Mass/Vol] Normal mg/dL Normal [facility] pH Auto test strip (U)Ordere d By: Joni Branch on 07-09-2021 pH (U) 7.0 [pH] 5.0-9.0 [facility] CT head/brain wo conon 07-08 CT head/brain wo con [facility] [place] [address] CT Scan Report Signed Patient: Alie Lowe MR#: [id number] 94 : 1960 Acct:[id number] Age/Sex: 60 / F ADM Date: 07/06/21 Loc: Room: [address] [place] [address] Type: ADM IN Attending Dr: Sandra Branch MD Ordering Provider: Joni Branch MD Date of Service: 07/08/21 CT/CT head/brain wo con: Confusion, change in loc Copies to: Joni Branch MD CT head 07/08/2021. CLINICAL DATA: Confusion. Decreased level of consciousness. TECHNIQUE: CT of the head was performed without contrast. This CT exam was performed using one or more of the following dose reduction techniques: Automated exposure control, adjustment of the mA and/or kV according to patient size, or use of iterative reconstruction technique. COMPARISON: None. FINDINGS: The ventricles, sulci, and cisterns are normal in size and configuration. No altered parenchymal attenuation is noted. There are no findings to suggest an acute large vessel infarct. There is no acute intracranial hemorrhage. No intracranial mass or mass effect is identified. No abnormal extra-axial fluid collection is seen. The visualized paranasal sinuses and the mastoids appear unremarkable. CT/CT head/brain wo con IMPRESSION: No acute intracranial abnormality. Impression dictated by: Adan Robertson Jr., M.D.07/08/2021 8:17 PM Dictation Location: [place] [address] Transcribed By: [facility] 07/08/212016 Dictated By: Adan Robertson Jr, MD 07/08/212013 Signed By: 07/08/212016 Normal [facility] Cholesterol [Mass/volume] in Serum or PlasmaOrdered By: Joni Branch on 07-07-2021 Cholesterol [Mass/Vol] 233 mg/dL 140-200 [facility] Comment on above: Chol less than 200 m g/dl low risk Chol 201-239 mg/dl borderline risk Chol 240 mg/dl and greater high risk Cholesterol in LDL Calc [Mas s/Vol]Ordered By: Joni Branch on 07-07-2021 Cholesterol in LDL [Mass/Vol] 165 mg/dL 0-100 [facility] Comment on above: LDL ATP III CLASSIFI CATION LDL less than 100 mg/dL Optimal LDL 100-129 mg/dL Near or above optimal LDL 130-159 mg/dL Borderline high LDL 160-189 mg/dL High LDL greater than 189 mg/dL Very high Cholesterol in VLDL Calc [Ma ss/Vol]Ordered By: Joni Branch on 07-07-2021 Cholesterol in VLDL [Mass/Vol] 19 mg/dL [facility] Complete Blood Count Auto Di ffon 07-07-2021 Basophils (Bld) [#/Vol] 0.0 10*3/uL Normal 0.0-0.2 [facility] Comment on above: Result Comment: PERF ORMED BY: [place] [address] PATHOLOGIST FIELD COLLECTOR JONAS BOYCE M.D. Performed By: #### C BC, CMP #### [facility] [address] [place] [address] [place] Basophils/100 WBC (Bld) 0.9 % Normal . [facility] Comment on above: Performed By: #### C BC, CMP #### [facility] [address] [place] [address] [place] Eosinophils (Bld) [#/Vol] 0.2 10*3/uL Normal 0.0-0.45 [facility] Comment on above: Performed By: #### C BC, CMP #### [facility] [address] [place] [address] [place] Eosinophils/100 WBC (Bld) 5.5 % Normal . [facility] Comment on above: Performed By: #### C BC, CMP #### [facility] [address] Erythrocyte distribution width (RBC) [Ratio] 13.8 % Normal 11.9-15.3 [facility] Comment on above: Performed By: #### C BC, CMP #### [address] Hematocrit (Bld) [Volume fraction] 43.1 % Normal 34.0-46.4 [facility] Comment on above: Performed By: #### C BC, CMP #### [address] Hemoglobin (Bld) [Mass/Vol] 14.5 g/dL Normal 11.8-15.4 [facility] Comment on above: Performed By: #### C BC, CMP #### [address] Lymphocytes (Bld) [#/Vol] 1.3 10*3/uL Normal 1.00-4.8 [facility] Comment on above: Performed By: #### C BC, CMP #### [address] Lymphocytes/100 WBC (Bld) 28.9 % Normal . [facility] Comment on above: Performed By: #### C BC, CMP #### [address] MCH (RBC) [Entitic mass] 34.6 pg High 24.7-34.3 [facility] Comment on above: Performed By: #### C BC, CMP #### [address] MCV (RBC) [Entitic vol] 103.0 fL High 80-100 [facility] Comment on above: Performed By: #### C BC, CMP #### [address] Mean Corpuscular HGB Conc 33.5 g/dL Normal 32.0-35.0 [facility] Comment on above: Performed By: #### C BC, CMP #### [facility] [address] [place] [address] [place] Monocytes (Bld) [#/Vol] 0.3 10*3/uL Normal 0.0-0.8 [facility] Comment on above: Performed By: #### C BC, CMP #### [facility] [address] [place] [id number] [place] Monocytes/100 WBC (Bld) 7.3 % Normal . [facility] Comment on above: Performed By: #### C BC, CMP #### [facility] [address] [place] [address] [place] Neutrophils (Bld) [#/Vol] 2.6 10*3/uL Normal 1.8-7.7 [facility] Comment on above: Performed By: #### C BC, CMP #### [facility] [address] [place] [id number] [place] Neutrophils/100 WBC (Bld) 57.4 % Normal . [facility] Comment on above: Performed By: #### C BC, CMP #### [facility] [address] [place] [address] [place] Nucleated RBC/100 WBC (Bld) [Ratio] 0.2 % Normal 0-0.5 [facility] Comment on above: Performed By: #### C BC, CMP #### [facility] [address] [place] [address] [place] Platelet mean volume (Bld) [Entitic vol] 8.5 fL Normal 6.3-10.7 [facility] Comment on above: Performed By: #### C BC, CMP #### [facility] [address] [place] [id number] [place] Platelets (Bld) [#/Vol] 281 10*3/uL Normal 150-450 [facility] Comment on above: Performed By: #### C BC, CMP #### [facility] [address] [place] [id number] [place] RBC (Bld) [#/Vol] 4.19 10*6/uL Normal 3.60-5.00 [facility] Comment on above: Performed By: #### C BC, CMP #### [facility] [address] [place] [address] WBC (Bld) [#/Vol] 4.5 10*3/uL Normal 4.5-11.0 [facility] Comment on above: Performed By: #### C BC, CMP #### [facility] [address] [place] [address] Comprehensive Metabolic Pane brock 07-07-2021 Albumin [Mass/Vol] 3.4 g/dL Normal 3.2-5.5 [facility] Comment on above: Performed By: #### C BC, CMP #### [address] Albumin/Globulin [Mass ratio] 1.3 {ratio} Normal [facility] Comment on above: Performed By: #### C BC, CMP #### [address] ALP [Catalytic activity/Vol] 55 U/L Normal 32-92 [facility] Comment on above: Performed By: #### C BC, CMP #### [facility] [address] [place] [address] ALT [Catalytic activity/Vol] 14 U/L Normal 10-60 [facility] Comment on above: Performed By: #### C BC, CMP #### [facility] [address] [place] [address] AST [Catalytic activity/Vol] 22 U/L Normal 10-42 [facility] Comment on above: Performed By: #### C BC, CMP #### [facility] [address] [place] [address] Bilirubin [Mass/Vol] 0.5 mg/dL Normal 0.3-1.2 [facility] Comment on above: Performed By: #### C BC, CMP #### [address] Calcium [Mass/Vol] 8.8 mg/dL Normal 8.2-10.2 [facility] Comment on above: Performed By: #### C BC, CMP #### [address] Chloride [Moles/Vol] 102 mmol/L Normal 95-114 [facility] Comment on above: Performed By: #### C BC, CMP #### [address] CO2 [Moles/Vol] 24.2 mmol/L Normal 22.0-30.0 [facility] Comment on above: Performed By: #### C BC, CMP #### [address] Creatinine [Mass/Vol] 0.70 mg/dL Normal 0.44-1.[address] [facility] Comment on above: Performed By: #### C BC, CMP #### [address] Creatinine Clr Calc Pharmacy 62.92 [facility] Comment on above: Result Comment: PERF ORMED BY: [place] [address] PATHOLOGIST FIELD COLLECTOR JONAS BOYCE M.D. Performed By: #### C BC, CMP #### [address] Estimated GFR ( Vani > 60 [facility] Comment on above: Result Comment: GFR estimated reference range: According to KDOQI guidelines, <60 ml/min/1.73m2 is sufficient to diagnose a patient with chronic kidney disease. Performed By: #### C BC, CMP #### [address] Estimated GFR (Non- Am > 60 [facility] Comment on above: Performed By: #### C BC, CMP #### [address] Globulin (S) [Mass/Vol] 2.7 g/dL Normal [facility] Comment on above: Performed By: #### C BC, CMP #### [place] [address] [place] Glucose [Mass/Vol] 183 mg/dL High 70-100 [facility] Comment on above: Result Comment: [facility] Glucose Reference Range is dependent on time and content of last meal. Glucose of more than 200 mg/dL in a nonstressed, ambulatory subject supports the diagnosis of Diabetes Mellitus. ADA recommended reference range Performed By: #### C BC, CMP #### [facility] [address] Potassium [Moles/Vol] 3.9 mmol/L Normal 3.5-5.[address] [facility] Comment on above: Performed By: #### C BC, CMP #### [facility] [address] Protein [Mass/Vol] 6.1 g/dL Normal 6.1-7.9 [facility] Comment on above: Performed By: #### C BC, CMP #### [facility] [address] [place] [phone] [facility] Sodium [Moles/Vol] 140 mmol/L Normal 136-146 [facility] Comment on above: Performed By: #### C BC, CMP #### [facility] [address] [place] [phone] [facility] Urea nitrogen [Mass/Vol] 15 mg/dL Normal 9-23 [facility] Comment on above: Performed By: #### C BC, CMP #### [facility] [address] [place] [id number] [facility] ECG 12 lead ECGon 07-07-2021 ECG 12 lead ECG [facility] [place] [address] [place] [address] Electrocardiograph Report Signed Patient: Alie Lowe MR#: [id number] 94 : 1960 Acct:[id number] Age/Sex: 60 / F ADM Date: 07/06/21 Loc: Room: [address] [place] [address] Type: DIS IN Attending Dr: Sandra Branch MD Ordering Provider: Joni Branch MD Date of Service: 07/07/21 ECG/ECG 12 lead ECG: baseline Copies to: Test Reason : Blood Pressure : / mmHG Vent. Rate : 064 BPM Atrial Rate : 064 BPM P-R Int : 128 ms QRS Dur : 086 ms QT Int : 436 ms P-R-T Axes : 050 -04 007 degrees QTc Int : 449 ms Normal sinus rhythm Normal ECG No previous ECGs available Confirmed by BISHOP HINOJOSA MD ([id number]) on 07/08/2021 7:13:08 AM Referred By: Electronically Signed By:BISHOP HINOJOSA MD Transcribed By: MUS Signed By Bishop Hinojosa MD 0 07/08/21 0713 Normal [facility] Laboratory - Chemistry and C hemistry - challengeOrdered By: Harriet Barber on 07-07-2021 Cobalamin (Vitamin B12) [Mass/Vol] 165 pg/mL 180-914 [facility] Lipid Panelon 07-07-2021 Cholesterol [Mass/Vol] 233 mg/dL High 140-200 [facility] Comment on above: Result Comment: Chol less than 200 mg/dl low risk Chol 201-239 mg/dl borderline risk Chol 240 mg/dl and greater high risk Performed By: #### L IPID, TSH3 wRFLX, [id number] #### [facility] [address] [place] [address] [place] Cholesterol in HDL [Mass/Vol] 48 mg/dL Normal 35-85 [facility] Comment on above: Result Comment: HDL CHOL ATP-III CLASSIFICATION Cardiovascular Risk HDL > or equal to 60 mg/dL LOW HDL < 40 mg/dL HIGH Performed By: #### L IPID, TSH3 wRFLX, [id number] #### [facility] [address] [place] [address] [place] Cholesterol.total/Nubia sterol in HDL [Mass ratio] 4.9 {ratio} Normal <5.0 [facility] Comment on above: Performed By: #### L IPID, TSH3 wRFLX, [id number] #### [facility] [address] [place] [address] [place] LDL Cholesterol,Calculated 165 mg/dL High 0-100 [facility] Comment on above: Result Comment: LDL ATP III CLASSIFICATION LDL less than 100 mg/dL Optimal LDL 100-129 mg/dL Near or above optimal LDL 130-159 mg/dL Borderline high LDL 160-189 mg/dL High LDL greater than 189 mg/dL Very high Performed By: #### L IPID, TSH3 wRFLX, [id number] #### [facility] [address] Triglyceride w/Reflex 99 mg/dL Normal 35-[address] [facility] Comment on above: Result Comment: TRIG ATP III CLASSIFICATION TRIG less than 150 mg/dL Normal TRIG 150-199 mg/dL Borderline high TRIG 200-500 mg/dL High TRIG greater than 500 mg/dL Very high Standard traceable to the Center for Disease Conrtrol and Prevention (CDC) test method. Performed By: #### L IPID, TSH3 wRFLX, [id number] #### [facility] [address] VLDL CHOLESTEROL 19 mg/dL Normal [facility] Comment on above: Performed By: #### L IPID, TSH3 wRFLX, [id number] #### [facility] [address] No Panel InformationOrdered By: Joni Branch on 07-07-2021 25-Hydroxy Vitamin D Total 17.9 ng/mL 30-100 [facility] Comment on above: VITAMIN D STATUS 25( [place])VITAMIN D RANGE (ng/mL) Deficient <20 Insufficient 20 to <30 Sufficient 30 to 100 Reference: Rambo MF,Josemanuel NC, Nahomi TUCKER, et al. Evaluation,treatment, and prevention of vitamin D deficiency; an Endocrine Society clinical practice guideline. JCEM. 2010; 96(7):1911-30. Serum or plasma high density lipoprotein (HDL) cholesterol measurementOrdered By: Joni Branch on 07-07-2021 Cholesterol in HDL [Mass/Vol] 48 mg/dL 35-85 [facility] Comment on above: HDL CHOL ATP-III CLA SSIFICATION Cardiovascular Risk HDL > or equal to 60 mg/dL LOW HDL < 40 mg/dL HIGH Serum or plasma total choles terol/high density lipoprotein (HDL) cholesterol mass ratOrdered By: Joni Branch on 07-07-2021 Cholesterol.total/Nubia sterol in HDL [Mass ratio] 4.9 {ratio} [facility] TSH DL <= 0.005 mIU/L QnOrde red By: Joni Branch on 07-07-2021 TSH Qn 1.93 m[IU]/L 0.45-5.33 [facility] Thyroid Stim Hormone w/Rflxo n 07-07-2021 Thyroid Stim Hormone w/Rflx 1.93 u[iU]/mL Normal 0.45-5.33 [facility] Comment on above: Performed By: #### L IPID, TSH3 wRFLX, [id number] #### [facility] [address] Triglyceride [Mass/volume] i n Serum or PlasmaOrdered By: Joni Branch on 07-07-2021 Triglyceride [Mass/Vol] 99 mg/dL 35-149 [facility] Comment on above: TRIG ATP III CLASSIF ICATION TRIG less than 150 mg/dL Normal TRIG 150-199 mg/dL Borderline high TRIG 200-500 mg/dL High TRIG greater than 500 mg/dL Very high Standard traceable to the Center for Disease Conrtrol and Prevention (CDC) test method. Vitamin B12on 07-07-2021 Cobalamin (Vitamin B12) [Mass/Vol] 165 pg/mL Low 180-914 [facility] Comment on above: Order Comment: Comme nt add on to previously drawn labs Result Comment: PERF ORMED BY: [facility] [address] [place] [address] PATHOLOGIST FIELD COLLECTOR JONAS BOYCE M.D. Performed By: #### L IPID, TSH3 wRFLX, [id number] #### [facility] [address] Vitamin D 25 Hydroxy Totalon 07-07-2021 Vitamin D 25 Hydroxy Total 17.9 ng/mL Low 30-100 [facility] Comment on above: Result Comment: MARYANN MIN D STATUS 25([place])VITAMIN D RANGE (ng/mL) Deficient <20 Insufficient 20 to <30 Sufficient 30 to 100 Reference: Rambo MF,Josemanuel NC, Nahomi TUCKER, et al. Evaluation,treatment, and prevention of vitamin D deficiency; an Endocrine Society clinical practice guideline. JCEM. 2010; 96(2):1911-30. PERFORMED BY: [facility] [address] [place] [address] PATHOLOGIST FIELD COLLECTOR JONAS BOYCE M.D. Performed By: #### L IPID, TSH3 wRFLX, [id number] #### [facility] [address] [place] [address] [facility] Vital Signs Date Time Vital Sign Value Performing Clinician Facility 09-12-2024 22:39-0400 SaO2% (BldA) [Mass fraction] 100 % [facility] Comment on above: Performed By: #### CBCA, PINR, 10666-0 # ### [facility] ([id number]) [address], [address] [place] [address] 09-12-2024 18:40-0400 SaO2% (BldA) [Mass fraction] 121 % [facility] Comment on above: Performed By: #### CBCA, CMP, FEPR, 2433 1-1, TSHR, 2276-4, HA1C, 2284-8, 2132-9 #### [facility] ([id number]) [address], [address] [place] [address] #### [id number] #### [facility] ([id number]) [address] [place] [address], [place] [address] 06-17-2024 14:00-0400 Body height 152.4 cm dianboom PA-[employer] Work Phone: [facility] 06-17-2024 14:00-0400 Body mass index (BMI) [Ratio] 20.12 kg/m2 dianboom PA-C Work Phone: [facility] 06-17-2024 14:00-0400 Body weight 46.72 kg Blanca Mici [facility]-C [facility] 06-17-2024 14:00-0400 Diastolic blood pressure 50 mm[Hg] Blanca Mici PA-C Work Phone: [facility] [employer] [facility] 06-17-2024 14:00-0400 Heart rate 80 /min Blanca Mici PA-C Work Phone: [facility] [employer] [facility] 06-17-2024 14:00-0400 Systolic blood pressure 92 mm[Hg] Blanca Mici PA-C Work Phone: [facility] [employer] [facility] 05-18-2024 11:30-0400 Body temperature 98.01 [degF] Hermann Mccloud MD Work Phone: [facility] [employer] [facility] 05-18-2024 11:30-0400 Diastolic blood pressure 74 mm[Hg] Hermann Mccloud MD Work Phone: [facility] [employer] [facility] 05-18-2024 11:30-0400 Heart rate 96 /min Hermann Mccloud MD Work Phone: [facility] [employer] [facility] 05-18-2024 11:30-0400 Respiratory rate 16 /min Hermann Mccloud MD Work Phone: [facility] [facility] 05-18-2024 11:30-0400 SaO2% (BldA) [Mass fraction] 97 % Hermann Mccloud MD Work Phone: [facility] [employer] [facility] 05-18-2024 11:30-0400 Systolic blood pressure 113 mm[Hg] Hermann Mccloud MD Work Phone: [facility] [facility] 05-18-2024 03:20-0400 Body mass index (BMI) [Ratio] 17.65 kg/m2 Hermann Mccloud MD Work Phone: [facility] [employer] [facility] 05-18-2024 03:20-0400 Body weight 41 kg Hermann Mccloud MD Work Phone: [facility] 05-08-2024 09:00-0400 Body height 152.4 cm Hermann Mccloud MD Work Phone: [facility] 05-07-2024 16:45-0400 Body temperature 98.6 [degF] Hermann Mccloud MD Work Phone: [facility] 05-07-2024 16:45-0400 SaO2% (BldA) [Mass fraction] 96 % Hermann Mccloud MD Work Phone: [facility] 05-07-2024 16:45-0400 SaO2% (BldA) [Mass fraction] 97 % Hermann Mccloud MD Work Phone: [facility] 05-07-2024 16:41-0400 SaO2% (BldA) [Mass fraction] 97 % [facility] Comment on above: Performed By: #### ICODE #### [facility] ([id number]) [address] [place] [address] 07-11-2021 07:30-0400 Body temperature 98 [degF] MD Sandra Branch Work Phone: [facility] 07-11-2021 07:30-0400 Diastolic blood pressure 82 mm[Hg] MD Sandra Branch Work Phone: [facility] 07-11-2021 07:30-0400 Heart rate 70 /min MD Sandra Branch Work Phone: [facility] 07-11-2021 07:30-0400 SaO2% (BldA) [Mass fraction] 99 % MD Sandra Branch Work Phone: [facility] 07-11-2021 07:30-0400 Systolic blood pressure 136 mm[Hg] MD Sandra Branch Work Phone: [facility] 07-10-2021 20:09-0400 Respiratory rate 16 /min MD Sandra Branch Work Phone: [facility] 07-07-2021 14:24-0400 Body height 152.4 cm MD Sandra Branch Work Phone: [facility] 07-06-2021 17:04-0400 Body mass index (BMI) [Ratio] 21.9 kg/m2 MD Sandra Branch Work Phone: [facility] 07-06-2021 17:04-0400 Body weight 50.8 kg MD Sandra Branch Work Phone: [facility] Encounters Encounter Date Encounter Type Care Provider Facility Start: 09-25-2024 End: 09-25-2024 ambulatory AIDEN PARSONSKHATIB [facility] Start: 09-13-2024 End: 09-13-2024 Telephone encounter Richi Smith RN [facility] Comment on above: orders Start: 09-12-2024 End: 09-18-2024 Evaluation and management of inpatient LI [facility] Start: 09-12-2024 End: 09-12-2024 Emergency department [facility] Start: 09-12-2024 End: [facility]12[facility] Start: 09-11-2024 End: 09-11-2024 Telephone encounter Angela Rendon RN [facility] Comment on above: [facility] Start: 08-12-2024 End: 08-12-2024 ambulatory Alexander Mayers MD Facility: [facility] Start: 07-15-2024 End: 07-15-2024 ambulatory Alexander Mayers MD Facility:[facility] Start: 07-01-2024 End: 07-01-2024 ambulatory Alexander Mayers MD Facility: [facility] Start: 06-17-2024 ambulatory [facility] Start: 06-17-2024 End: 06-17-2024 [facility] Comment on above: 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); Hypertension, unspecified type; Mixed hyperlipidemia; Chronic systolic heart failure (CMS-HCC); Complete heart block (CMS-HCC); Continuous tobacco abuse Start: 06-17-2024 End: 06-18-2024 Telephone encounter Monica Sharif RN [facility] Comment on above: Life Vest issue Start: 06-17-2024 End: 06-17-2024 ambulatory [facility] Start: 06-14-2024 End: 06-14-2024 Telephone encounter Juana Eden CMA [facility] Start: 05-30-2024 End: 05-30-2024 Chart abstracting Scanning Provider External [facility] Start: 05-30-2024 End: 05-30-2024 ambulatory ART BLUE Not Available Start: 05-30-2024 End: 05-30-2024 Patient encounter procedure Art Blue PhD Work Phone: [facility] Comment on above: Alcoholic Korsakoff syndrome (CMS/HCC) (Primary Dx); Memory loss; Concentration deficit; History of alcohol abuse; Family history of dementia; Bereavement Start: 05-22-2024 End: 05-22-2024 ambulatory HERMANN Vivek [facility] Start: 05-21-2024 End: 05-21-2024 Telephone encounter Kristen Gonzalez [facility] [facility] Comment on above: New Patient Start: 05-20-2024 End: 05-20-2024 Patient encounter procedure Art Blue PhD Work Phone: [facility] Comment on above: Memory loss (Primary Dx); Concentration deficit; Family history of dementia; History of alcohol abuse; Bereavement Start: 05-20-2024 End: 05-20-2024 ambulatory ART BLUE Not Available Start: 05-20-2024 End: 05-20-2024 Jeramybomiguel flowsheet Art Blue PhD Work Phone: [facility] Start: 05-20-2024 End: 05-20-2024 Jeramybo flowsheet Art Blue PhD Work Phone: [facility] Start: 05-10-2024 End: 05-10-2024 Evaluation and management of inpatient [facility] Start: 05-10-2024 End: 05-14-2024 Evaluation and management of inpatient [facility] Start: 05-09-2024 End: 05-18-2024 Evaluation and management of inpatient [facility] Start: 05-08-2024 End: 05-21-2024 Telephone encounter Gilberto Zepeda MD Work Phone: [facility] Comment on above: s/p CATH/PCI Start: 05-07-2024 End: 05-07-2024 ambulatory UNKNOWN PROVIDER Facility:[facility] Start: 05-07-2024 End: 05-18-2024 Evaluation and management of inpatient Maya Luciano MD Work Phone: [facility] 6 Acute Start: 05-07-2024 End: 05-07-2024 Telephone encounter Shaniqua Gonzalez Call Viola delgado Comment on above: Order clarification Start: 05-07-2024 End: 05-07-2024 Emergency department [facility] Start: 04-10-2024 End: 04-10-2024 Telephone encounter Shonda Rose [facility] Comment on above: Neuro Referral/Ins I ssue Start: 04-06-2024 End: 04-06-2024 [facility] Start: 07-06-2021 End: 07-11-2021 Evaluation and management of inpatient Igor Defrance Facility:[facility] Start: 07-06-2021 End: 07-11-2021 Evaluation and management of inpatient MD Sandra Branch Work Phone: [facility] Procedures Date Procedure Procedure Detail Performing Clinician Start: 05-18-2024 Basic metabolic pane l calcium total Alfa Gregory MD Work Phone: Start: 05-17-2024 Comprehensive metabo lic panel Leobardo Sergo Jc PA-C Work Phone: Start: 05-16-2024 Comprehensive metabo lic panel Leobardo Trotter Jc PA-C Work Phone: Start: 05-15-2024 Comprehensive metabo lic panel Leobardo Trotter Jc PA-C Work Phone: Start: 05-14-2024 Gluc bld gluc mntr d ev cleared fda spec home use Maya Luciano MD Work Phone: Start: 05-14-2024 Comprehensive metabo lic panel Leobardo P Jc PA-C Work Phone: Start: 05-13-2024 Electrolyte panel Alfa Gregory MD Work Phone: Start: 05-13-2024 Comprehensive metabo lic panel Leobardo P Jc PA-C Work Phone: Start: 05-12-2024 Electrolyte panel Alfa Gregory MD Work Phone: Start: 05-12-2024 Electrolyte panel Alfa Gregory MD Work Phone: Start: 05-12-2024 Comprehensive metabo lic panel Leobardo P Jc PA-C Work Phone: Start: 05-11-2024 Electrolyte panel Alfa Gregory MD Work Phone: Start: 05-11-2024 Electrolyte panel Alfa Gregory MD Work Phone: Start: 05-11-2024 Comprehensive metabo lic panel Leobardo P Jc PA-C Work Phone: Start: 05-10-2024 Electrolyte panel Alfa Gregory MD Work Phone: Start: 05-10-2024 Cyanocobalamin vitamin b-12 Caio White MD Work Phone: Start: 05-10-2024 EEG Cristal Harris MD Work Phone: Start: 05-10-2024 Electrolyte panel Edilia Kang MD Work Phone: Start: 05-10-2024 Echo transthorc r-t 2d w/wo m-mode rec f-up/lmtd Aiden Spangler MD Work Phone: Start: 05-10-2024 Electrolyte panel Alfa Gregory MD Work Phone: Start: 05-10-2024 Comprehensive metabo lic panel Leobardo Greene PA-C Work Phone: Start: 05-10-2024 Electrolyte panel Alfa Gregory MD Work Phone: Start: 05-09-2024 Electrolyte panel Alfa Gregory MD Work Phone: Start: 05-09-2024 RESPIRATORY CARE EDUCATION Raman Mcnally MD Work Phone: Start: 05-09-2024 CARDIAC INVASIVE Aiden Spangler MD Work Phone: Start: 05-09-2024 PERCUTANEOUS CORONAR Y INTERVENTION Aiden Spangler MD Work Phone: Start: 05-09-2024 STENT DRUG-ELUT/EA A DD BR LCX Aiden Spangler MD Work Phone: Start: 05-09-2024 Electrolyte panel Alfa Gregory MD Work Phone: Start: 05-09-2024 End: 05-09-2024 Electrolyte panel Alfa Gregory MD Work Phone: Start: 05-09-2024 Electrolyte panel Alaf Gregory MD Work Phone: Start: 05-08-2024 Electrolyte panel Alfa Gregory MD Work Phone: Start: 05-08-2024 Electrolyte panel Alfa Gregory MD Work Phone: Start: 05-08-2024 Assay of osmolality urine Alfa Gregory MD Work Phone: Start: 05-08-2024 Drug tst prsmv instr mnt chem analyzers pr date Berta Kang MD Work Phone: Start: 05-08-2024 Cortisol total Roscoe Kang MD Work Phone: Start: 05-08-2024 HC ALCOHOL; ANY SPEC IMEN EXCEPT URINE AND BREATH, IMMUNOASSAY Berta Kang MD Work Phone: Start: 05-08-2024 Lipid panel Berta Kang MD Work Phone: Start: 05-08-2024 Comprehensive metabo lic panel Maya Luciano MD Work Phone: Start: 05-08-2024 Blood count complete automated Leobardo Greene PA-C Work Phone: Start: 05-07-2024 Comprehensive metabo lic panel Harrison Espinal MD Work Phone: Start: 05-07-2024 Ecg routine ecg w/le ast 12 lds trcg only w/o i&r Gilberto Zepeda MD Work Phone: Start: 05-07-2024 RESPIRATORY CARE EDUCATION Gilberto Zepeda MD Work Phone: Start: 05-07-2024 CARDIAC INVASIVE Aiden Spangler MD Work Phone: Start: 05-07-2024 INSERT/REPLACE TEMP SNGL PM Aiden Spangler MD Work Phone: Start: 05-07-2024 IVUS INITIAL VESSEL Denzel Spangler MD Work Phone: Start: 05-07-2024 PERCUTANEOUS CORONAR Y INTERVENTION Aiden Spangler MD Work Phone: Start: 05-07-2024 REVASC SUPERVISOR MAIL CARRIERS/GARETT STENT /ATH LAD Aiden Spangler MD Work Phone: Start: 05-07-2024 Echo transthorc r-t 2d w/wo m-mode rec f-up/lmtd Harrison Espinal MD Work Phone: Start: 05-07-2024 Ecg routine ecg w/le ast 12 lds trcg only w/o i&r Harrison Espinal MD Work Phone: Start: 05-07-2024 End: 05-07-2024 Gluc bld gluc mntr dev cleared fda spec home use Maya Luciano MD Work Phone: Start: 05-07-2024 Sodium serum plasma or whole blood Shayne Velasquez MD Work Phone: Start: 11-11-2021 Adult depression scr eening assessment Shonda Rose Start: 07-08-2021 CT of head without contrast MD Sandra Branch Work Phone: Plan of Treatment Date Care Activity Detail Author Start: 02-02-2030 DTaP,Tdap and Td Vaccines (2 - Td or Tdap) DTaP,Tdap and Td Vaccines (2 - Td or Tdap) [facility] Start: 09-13-2025 Adult BMI Screening Adult BMI Screening [facility] Start: 09-12-2025 Tobacco Screening Tobacco Screening [facility] Start: 06-17-2025 Adult BMI Screening Adult BMI Screening [facility] Start: 05-18-2025 Adult BMI Screening Adult BMI Screening [facility] Start: 05-07-2025 Adult BMI Screening Adult BMI Screening [facility] Start: 05-07-2025 Tobacco Screening Tobacco Screening [facility] Start: 10-14-2024 Influenza vaccination Influenza Vaccine [facility] Start: 10-07-2024 End: 10-07-2024 Patient encounter procedure 10/07/2024 3:15 PM EDT Office Visit [facility] [address] [place] [id number] Giovanni Hdez MD [address] [place], [place] [id number] [facility] Start: 09-17-2024 End: 06-17-2025 Hepatic function 2000 panel - Serum or Plasma Hepatic function panel Lab Routine Mixed hyperlipidemia Expected: 09/17/2024 (Approximate), Expires: 06/17/2025 [facility] Comment on above: Expected: 09/17/2024 (Approximate), Expi res: 06/17/2025 Start: 09-17-2024 End: 06-17-2025 Lipid panel Lipid panel Lab Routine Mixed hyperlipidemia Expected: 09/17/2024 (Approximate), Expires: 06/17/[facility] Phone: Comment on above: Expected: 09/17/2024 (Approximate), Expi res: 06/17/2025 Start: 09-12-2024 End: 09-12-2024 Patient encounter procedure 09/12/2024 1:30 PM EDT Appointment [facility] [address] [place] [id number] Blanca Carrillo PA-C [address] [place] [address] [facility] Start: 08-17-2024 End: 06-17-2025 Echo complete W/O contrast Echo complete W/O contrast Echocardiography Routine Chronic systolic heart failure ([facility]) Expected: 08/17/2024 (Approximate), Expires: 06/17/2025 [facility] Comment on above: Expected: 08/17/2024 (Approximate), Expi res: 06/17/2025 Start: 06-17-2024 End: 06-17-2024 Patient encounter procedure 06/17/2024 2:00 PM EDT Office Visit [facility] [address] [place] [address] Blanca Carrillo PA-C [address] [place] [address] [facility] Start: 06-17-2024 End: 06-17-2025 Wireless Telemetry (In Office) [facility] Comment on above: Expected: 06/17/2024, Expires: Start: 05-30-2024 End: 05-30-2024 Patient encounter procedure 05/30/2024 9:00 AM EDT Office Visit [facility] [address] [phone] [facility] Start: 05-20-2024 End: 05-20-2024 Patient encounter procedure 05/20/2024 2:30 PM EDT Office Visit [facility] [address] [phone] Art Blue, PhD [address] [place], [place] [id number] Arrived [facility] Comment on above: Arrived Start: 05-18-2024 End: 05-18-2025 MR Cervical spine WO and W contrast IV [facility] Work Phone: Start: 05-18-2024 End: 05-18-2025 MR Lumbar spine WO and W contrast IV [facility] Start: 05-15-2024 End: 05-08-2025 Wireless Telemetry (In Office) [facility] Work Phone: Start: 10-15-2023 Influenza vaccination Influenza Vaccine [facility] Start: 07-30-2023 Tobacco Screening Tobacco Screening [facility] Start: 07-01-2023 Adult BMI Screening Adult BMI Screening [facility] Start: 11-11-2022 Depression Screening Depression Screening [facility] Start: 2012 Administration of varicella zoster vaccine Zoster (Shingles) Vaccine (1 of 2) [facility] Start: 2002 Screening for malignant neoplasm of breast Mammogram [facility] Start: 09-24-1983 Screening for malignant neoplasm of cervix [facility]: 1980 Adult BMI Follow Up Plan Adult BMI Follow Up Plan [facility] Start: 1962 Tobacco Counseling Tobacco Counseling [facility] End: 05-07-2024 aPTT in Blood by Coagulation assay [facility] Basic metabolic 2000 panel - Serum or Plasma [facility] Work Phone: End: 06-17-2025 Basic metabolic 2000 panel - Serum or Plasma Basic Metabolic Panel Lab Routine Chronic systolic heart failure ([facility]) 1 Occurrences starting 06/17/2024 until 06/17/2025 [facility] Comment on above: 1 Occurrences starting 06/17/2024 until 06/17/2025 End: 05-07-2024 Blood count hemoglobin [facility] Work Phone: End: 06-17-2025 CBC W Auto Differential panel - Blood CBC auto differential Lab Routine Chronic systolic heart failure [facility] 1 Occurrences starting 06/17/2024 until 06/17/2025 [facility] Comment on above: 1 Occurrences starting 06/17/2024 until 06/17/2025 EP INVASIVE EP INVASIVE Comp lete heart block [facility] Ionized calcium [facility] Magnesium [Mass/volu me] in Serum or Plasma [facility] End: 06-17-2025 Magnesium [Mass/volume] in Serum or Plasma Magnesium Lab Routine Chronic systolic heart failure [facility] 1 Occurrences starting 06/17/2024 until 06/17/2025 [facility] Comment on above: 1 Occurrences starting 06/17/2024 until 06/17/2025 Patient Education Ivermectin (Sy stemic) Acute Psychosis (DC) Scabies (DC) [facility] Behavioral Health DC Instructions [facility] Work Phone: Patient referral [facility] Work Phone: Phosphate [Mass/volu me] in Serum or Plasma [facility] End: 05-07-2024 Platelets [#/volume[facility] End: 12-18-2024 [facility] Work Phone: Comment on above: 1 Occurrences starting 06/17/2024 until 12/18/2024 End: 05-07-2024 Protime & INR [facility] End: 05-07-2024 Troponin I, High Sensitivity 1 Hour [facility] Work Phone: Immunizations Immunization Date Immunization Notes Care Provider Fa magdalena 02-03-2020 tetanus toxoid, redu christina diphtheria toxoid, and acellular pertussis vaccine, adsorbed Ta-Erina Cuffie [facility] Payers Date Payer Category Payer Private Health Insurance 2023 Medicare (Managed Care) [employer] M [employer] ADVANTAGE [id number] 2022 Medicare HMO [id number] 2022 Medicare [id number] 2021 Medicaid [id number] 2021 Medicaid [id number] 2021 Medicare [id number] 2021 Medicare [id number] 2021 Self-pay [id number] 1960 Unknown [id number] 2.16.840.1.528032.3.579.2. 732 1962 Unknown [id number] 2.16.840.1.085482.3.579.2. 1259 1962 Unknown [id number] 2.16.840.1.201194.3.579.2. 1259 1962 Unknown [id number] 2.16.840.1.488181.3.579.2. 196 1962 Unknown [id number] 2.16.840.1.842391.3.579.2. 1962 Unknown [id number] 2.16.840.1.918237.3.579.2. 1962 Unknown [id number] 2.16.840.1.411353.3.579.2. 1285 1962 Unknown [id number] 2.16.840.1.522340.3.579.2. 1285 1962 Unknown [id number] 2.16.840.1.750091.3.579.2. 1285 1962 Unknown [id number] 2.16.840.1.340350.3.579.2. 1285 1962 Unknown [id number] 2.16.840.1.464505.3.579.2. 1285 1962 Unknown [id number] 2.16.840.1.301857.3.579.2. 1285 1962 Unknown [id number] 2.16.840.1.582898.3.579.2. 1285 1962 Unknown [id number] 2.16.840.1.896642.3.579.2. 1285 1962 Unknown [id number] 2.16.840.1.058860.3.579.2. 1285 1962 Unknown [id number] 2.16.840.1.718370.3.579.2. 128 1962 Unknown [id number] 2.16.840.1.552772.3.579.2. 1286 1962 Unknown [id number] 2.16.840.1.779884.3.579.2. 1286 1962 Unknown [id number] 2.16.840.1.836812.3.579.2. 1286 1962 Unknown [id number] 2.16.840.1.101146.3.579.2. 1286 Unknown [id number] 2.16.840.1.735486.3.579.2. 531 Social History Date Type Detail Facility Start: 07-07-2021 Tobacco smoking status NHIS Smoker (finding) [facility] Start: 1960 Sex Assigned At Female [facility] Start: 02-28-2022 Tobacco smoking status TNIS Smokes tobacco daily [facility] History of tobacco use Cigarette Smoker P [facility] Start: 02-28-2022 Tobacco use and exposure Smokeless tobacco non-user [facility] Start: 07-29-2022 End: 09-12-2024 Alcoholic beverage intake Current drinker of alcohol (finding) [facility] Start: 11-21-2017 End: 03-03-2020 History of Social function [facility] Start: 11-21-2017 End: 03-03-2020 Alcohol Use Disorder Identification Test - Consumption [AUDIT-C] [facility] Frequency of Alcohol Consumption Never [facility] Start: 02-28-2022 Tobacco Comment Patient states she drinks a lot. [facility] Start: 1960 Sex assigned at Not on file [facility] Start: 09-16-2014 Sex Female (finding) [facility] Medical Equipment Procedure Code Equipment Code Equipment Origin al Text Equipment Identifier Dates [id number] FDA Start: 05-07-2024 [id number] FDA Start: 05-09-2024 Goals Date Patient Goal Desired Activity /State Personal health goal Comment on above: Formatting of this n ote might be different from the original. Evaluation of progress towards goal: Patient plans for a safe discharge. Functional Status Date Assessment Result Facility 07-11-2021 Functional status Patient at Baseline [facility] Work Phone: [facility] Mental Status Date Assessment Result Facility 07-11-2021 Cognitive function Cognitive Sta tus Patient at Baseline [facility] Work Phone: [facility] Clinical Notes 07-07-2021 to 09-13-2024 Telephone Encounter - Richi Smith RN - 09/13/2024 8:23 PM EDTTelephone Encounter - Richi Smith RN - 09/13/2024 8:23 PM EDTTelephone Encounter - Angela Rendon RN - 09/11/2024 10:17 AM EDT Note Date & Type Note Facility 09-13-2024 Miscellaneous Notes OC 132 Jacqueline from [facility] to clarify anticoagulant order Call placed to Dr Brower and warm transfer to Jacqueline documented in this encounter [facility] 09-13-2024 Telephone encounter Note OC 132 Jacqueline from [facility] to clarify anticoagulant order Call placed to Dr Brower and warm transfer to [facility] 09-11-2024 Miscellaneous Notes LM on patients phone wanting to know what status of Life Vest is. Asked to return call with update documented in this encounter [facility] 09-11-2024 Telephone encounter Note LM on patients phone wanting to know what status of Life Vest is. Asked to return call with update [facility] 06-17-2024 Miscellaneous Notes Patient in office today with KM. She told him she took off her life vest because a light wasn't coming on and she didn't think it working. She had not called anyone. I called Ashely Ballard our [employer] rep and left a detailed message with patient's phone asking to reach out to her. I also sent her an email and asked her to call the office if questions. Ashely Ballard Coordinator Of Patient Administration [employer] Zoll #: [phone] Zoll [employer] called pt today.slm documented in this encounter [facility] 06-17-2024 Telephone encounter Note Patient in office today with KM. She told him she took off her life vest because a light wasn't coming on and she didn't think it working. She had not called anyone. I called Ashely Ballard our [employer] rep and left a detailed message with patient's phone asking to reach out to her. I also sent her an email and asked her to call the office if questions. Ashely Ballard Coordinator Of Patient Administration [employer] #: [phone] [employer] [facility] 06-17-2024 Telephone encounter Note [employer] called pt today.slm [facility] 06-17-2024 History of Present illness Narrative Alie Lowe Date of visit: 06/17/2024 Date of : 1960 Age: 63 y.o. Patient Active Problem List Diagnosis Cervical spondylosis without myelopathy Osteoarthritis of cervical spine HTN (hypertension) CHB (complete heart block) ([facility]) ST elevation myocardial infarction (STEMI) ([facility]) Coronary artery disease involving [place] coronary artery of [place] heart Mixed hyperlipidemia Chronic systolic heart failure ([facility]) Allergies Allergen Reactions Sulfa (Sulfonamide Antibiotics) Itching and Rash Current Outpatient Medications Medication Sig Dispense Refill busPIRone (BUSPAR) 10 mg tablet Take 1 tablet (10 mg total) by mouth in the morning and 1 tablet (10 mg total) before bedtime. DULoxetine (CYMBALTA) 60 mg capsule Take 1 [...] 1 capsule (300 mg total) before bedtime. sennosides-docusate sodium (SENOKOT-S) 8.6-50 mg Take 2 tablets by mouth 2 (two) times a day as needed for constipation. thiamine HCl (VITAMIN B-1) 100 mg tablet Take 1 tablet (100 mg total) by mouth in the morning. aspirin 81 mg chewable tablet Chew 1 tablet (81 mg total) and swallow in the morning for 360 days. 90 tablet 3 atorvastatin (LIPITOR) 80 mg tablet Take 1 tablet (80 mg total) by mouth nightly. 90 tablet 3 benzonatate (TESSALON PERLES) 100 mg capsule Take 1 capsule (100 mg total) by mouth 3 (three) times a day as needed for cough. dapagliflozin propanediol (FARXIGA) 10 mg tablet Take 1 tablet (10 mg total) by mouth in the morning for 360 days. 90 tablet 3 metoprolol succinate XL (TOPROL XL) 25 mg 24 hr tablet Take 0.5 tablets (12.5 mg total) by mouth in the morning. 45 tablet 3 nicotine polacrilex (NICORETTE) 4 MG gum Chew 1 each (4 mg total) as directed as needed for smoking cessation. As recommended on Nicorette gum label, weeks 1-6 1 piece every 1-2 hours, week 7-9 1 piece every 2-4 hours, weeks 10-12 1 piece every 4-8 hours. Do not use nicotine gum simultaneously with other tobacco product 100 each 3 prasugreL HCl (EFFIENT) 10 mg tablet Take 1 tablet (10 mg total) by mouth in the morning. 90 tablet 3 spironolactone (ALDACTONE) 25 mg tablet Take 1 tablet (25 mg total) by mouth in the morning. 90 tablet 3 valsartan (DIOVAN) 40 mg tablet Take 1 tablet (40 mg total) by mouth in the morning and 1 tablet (40 mg total) before bedtime. 90 tablet 3 No current facility-administered medications for this visit. Chief Complaint Patient presents with Hospital Follow-up HOSP TT S/P CATH History of Present Illness Patient is a 63-year-old female, or presented to [place] ER after continued falls, patient was found to be in complete heart block with with junctional escapes with a left bundle pattern 39 beats per minute. Prior to this patient had multiple presyncopal and syncopal episodes for the past 6 months. The patient had an EKG obtain bedside that noted ST elevations anteriorly with Q-waves a stat bedside echocardiogram noted apical akinesis, with reduced ejection fraction consistent with STEMI, and patient was taken for catheterization Patient was found to have prox LAD to mid LAD 100% stenosed with CESAR flow 0, 2nd OM 85% since stenosed, Patient underwent stent with thrombectomy to the LAD, OM2 Given stable rhythm with no noted complete heart block patient was evaluated by EP felt inpatient pacemaker was not warranted with the plans for a 30 day MCOT to evaluate for further episodes following discharge. Patient presents today for follow up, at this visit she denies chest pain and shortness of breath at rest has been having some dyspnea on exertion, or heart palpitations, has not had any syncopal episodes since discharge. Complaints of swelling or bleeding. Presents today with sister. Past Medical History: Diagnosis Date Asthma Asthma Back pain Cervical disc disorder CHB (complete heart block) ([facility]) 05/07/2024 HTN (hypertension) Hx of scabies Low back pain Lumbosacral disc disease Neck pain Osteoarthritis TMJ (temporomandibular joint syndrome) No data recorded No data recorded No data recorded Past Surgical History: Procedure Laterality Date Cardiac Invasive N/A 05/09/2024 Performed by Gilberto Zepeda MD at [facility] Cardiac Invasive-cors N/A 05/07/2024 Performed by Gilberto Zepeda MD at [facility] SECTION SECTION 1980,82,86, INJECTION MEDIAL BRANCH NERVE BLOCK: left C34 45 56 Left 03/16/2018 Performed by Manav Rosario MD at [facility] INJECTION MEDIAL BRANCH NERVE BLOCK: left c34 45 56 Left 02/12/2018 Performed by Manav Rosario MD at [facility] INJECTION MEDIAL BRANCH NERVE BLOCK: right C34 45 56 Right 09/14/2018 Performed by Manav Rosario MD at [facility] INJECTION MEDIAL BRANCH NERVE BLOCK: right C34 45 56mbb Right 07/23/2018 Performed by Manav Rosario MD at [facility] Insert/replace temporary single lead pacemaker N/A 05/07/2024 Performed by Gilberto Zepeda MD at [facility] Intravascular ultrasound initial vessel N/A 05/07/2024 Performed by Gilberto Zepeda MD at [facility] ORTHOPEDIC SURGERY Percutaneous coronary intervention N/A 05/07/2024 Performed by Gilberto Zepeda MD at [facility] Percutaneous coronary intervention of OM N/A 05/09/2024 Performed by Gilberto Zepeda MD at [facility] RADIO FREQUENCY ABLATION Right C 3/4, 4/5, 5/6 Right 11/15/2019 Performed by Manav Rosario MD at [facility] RADIO FREQUENCY ABLATION: left C34 45 56rfa Left 04/30/2018 Performed by Manav Rosario MD at [facility] RADIOFREQUENCY ABLATION SPINAL: Right C 4/5 5/6 Left 07/08/2022 Performed by Manav Rosario MD at [facility] RADIOFREQUENCY ABLATION SPINAL: right C 4/5 5/6 Right 07/29/2022 Performed by Manav Rosario MD at [facility] Revascularization/drug eluting stent/ left anterior descending N/A 05/07/2024 Performed by Gilberto Zepeda MD at [facility] CARDIAC CATH LABS ROTATOR CUFF REPAIR Left Stent drug-eluting/ left circumflex N/A 05/09/2024 Performed by Gilberto Zepeda MD at [facility] CARDIAC CATH LABS TONSILLECTOMY 1970 Family History Problem Relation Age of Onset Heart disease Mother Heart disease Father Heart disease Son Social History Socioeconomic History Marital status: Single [...] Resource Strain: Not on file Food Insecurity: No Food Insecurity (06/17/2024) Hunger Screening Food Insecurity - Worry: Never True Food Insecurity - Inability: Never True Transportation Needs: Patient Unable To Answer (05/08/2024) PRAPARE - Transportation Lack of Transportation (Medical): Patient unable to answer Lack of Transportation (Non-Medical): Patient unable to answer Physical Activity: Not on file Stress: Not on file Social Connections: Not on file Interpersonal Safety: Patient Unable To Answer (05/08/2024) Humiliation, Afraid, Rape, and Kick questionnaire Fear of Current or Ex-Partner: Patient unable to answer Emotionally Abused: Patient unable to answer Physically Abused: Patient unable to answer Sexually Abused: Patient unable to answer Housing Instability: Patient Unable To Answer (05/08/2024) Housing Instability Housing Instability: Patient unable to answer Review of Systems Review of Systems Constitutional: Negative. HENT: Negative. Eyes: Negative. Respiratory: Positive for cough. Hematologic/Lymphatic: Negative. Skin: Negative. Musculoskeletal: Negative. Gastrointestinal: Negative. Neurological: Negative. Psychiatric/Behavioral: Negative. Allergic/Immunologic: Negative. CARDIOVASCULAR: Please review HPI. Physical Examination General appearance: Alert, oriented and cooperative. In no acute distress. Skin: Warm and dry to touch. Head: Normocephalic, without obvious abnormality, atraumatic. Ears, Nose, Mouth, Throat: Throat clear without erythema or exudate. Dentition intact. Eyes: Conjunctivae unremarkable, EOM intact. Neck: No JVD Respiratory: Clear to auscultation bilaterally, no use of accessory muscles. Cardiovascular: RRR with normal S1 and S2 with no murmurs. Gastrointestinal: Soft, non-tender Musculoskeletal: No peripheral edema, right femoral catheter site no bruising or hematoma Neurologic: Oriented to time, person and place, affect appropriate. No focal/major motor defects noted. Psychiatric: Appropriate mood, memory and judgement. VITAL SIGNS: BP 92/50 (BP Site: Left Arm, BP Postition: Sitting) Pulse 80 Ht 152.4 cm (5') Wt 46.7 kg (103 lb) BMI 20.12 kg/m Orders Placed or Reconciled This Encounter Medications prasugreL HCl (EFFIENT) 10 mg tablet Sig: Take 1 tablet (10 mg total) by mouth in the morning. Dispense: 90 tablet Refill: 3 aspirin 81 mg chewable tablet Sig: Chew 1 tablet (81 mg total) and swallow in the morning for 360 days. Dispense: 90 tablet Refill: 3 atorvastatin (LIPITOR) 80 mg tablet Sig: Take 1 tablet (80 mg total) by mouth nightly. Dispense: 90 tablet Refill: 3 dapagliflozin propanediol (FARXIGA) 10 mg tablet Sig: Take 1 tablet (10 mg total) by mouth in the morning for 360 days. Dispense: 90 tablet Refill: 3 spironolactone (ALDACTONE) 25 mg tablet Sig: Take 1 tablet (25 mg total) by mouth in the morning. Dispense: 90 tablet Refill: 3 valsartan (DIOVAN) 40 mg tablet Sig: Take 1 tablet (40 mg total) by mouth in the morning and 1 tablet (40 mg total) before bedtime. Dispense: 90 tablet Refill: 3 metoprolol succinate XL (TOPROL XL) 25 mg 24 hr tablet Sig: Take 0.5 tablets (12.5 mg total) by mouth in the morning. Dispense: 45 tablet Refill: 3 nicotine polacrilex (NICORETTE) 4 MG gum Sig: Chew 1 each (4 mg total) as directed as needed for smoking cessation. As recommended on Nicorette gum label, weeks 1-6 1 piece every 1-2 hours, week 7-9 1 piece every 2-4 hours, weeks 10-12 1 piece every 4-8 hours. Do not use nicotine gum simultaneously with other tobacco product Dispense: 100 each Refill: 3 Medications Discontinued During This Encounter Medication Reason atorvastatin (LIPITOR) 80 mg tablet Reorder aspirin 81 mg chewable tablet Reorder prasugreL HCl (EFFIENT) 10 mg tablet Reorder dapagliflozin propanediol (FARXIGA) 10 mg tablet Reorder valsartan (DIOVAN) 40 mg tablet Reorder spironolactone (ALDACTONE) 25 mg tablet Reorder metoprolol succinate XL (TOPROL XL) 25 mg 24 hr tablet Reorder IMPRESSIONS/PLAN 1. Coronary artery disease involving skagway coronary artery of skagway heart without angina pectoris -in the setting of STEMI S/P GARETT prox and mid LAD and OM2 -continue Effient and aspirin, no anginal complaints at this visit -referral to cardiac rehab sent 2. Chronic systolic heart failure EF 20-25% -continue metoprolol succinate 12.5 mg, valsartan 40 mg b.i.d., spironolactone 25 mg, Farxiga 10 mg -unable to further up titrate given blood pressure of 92/50 she is tolerating current medications well with no complaints. -recheck EF in 2 months -obtain a BMP, Mag -euvolemic 3. Mixed hyperlipidemia -continue atorvastatin 40 mg, due for repeat lipid with liver enzymes in 2-3 months to ensure LDL at goal 4. Chronic pain 5. Complete heart block -EP recommend 30 day am called to evaluate for any reoccurrence, this was ordered at discharge however has not arrived yet will reorder this 6. Continuous tobacco abuse -currently smokes a pack a day discussed nicotine gum and prescribed As recommended on Nicorette gum label, weeks 1-6 1 piece every 1-2 hours, week 7-9 1 piece every 2-4 hours, weeks 10-12 1 piece every 4-8 hours. Do not use nicotine gum simultaneously with other tobacco products such as cigarettes. With a max of 10 pieces daily. Use only as directed. 7. Concern for malfunctioning of LifeVest? -currently not wearing once states the light will contact the rep and have the patient call the company as well, discuss to where this as may still be functioning however will have the rep take a look. 8. Alcohol abuse Patient is stable from a cardiovascular standpoint, she will follow up in 3 months or sooner as needed. Seen with in the office. TODAYS ORDERS Orders Placed This Encounter Procedures Lipid panel Hepatic function panel CBC auto differential Basic Metabolic Panel Magnesium [facility] Ambulatory referral to Cardiac Rehabilitation (Non-[facility]) Wireless Telemetry (In Office) Echo complete W/O contrast FOLLOW UP Return in about 3 months (around 09/17/2024). PCP: [facility] Referring Physician: No referring provider defined for this encounter. Blanca Carrillo PA-C 06/17/24 1504 documented in this encounter [employer] 06-17-2024 Instructions Blanca Carrillo PA-C - 06/17/2024 2:00 PM EDT Are You Ready To Kick The Habit? Free Tobacco Cessation Resources [facility] Services [facility] provide all employees with free tobacco cessation services that include: Counseling to understand nicotine addiction Education about medications that can help you successfully quit Assistance with developing a plan to quit Call to set up an individual appointment or find out when group classes will be held: [facility]: [phone] [facility]: [phone] [facility]: [phone] [facility]: [phone] Quit Smoking Action Plan and Resources [facility] offers an eight-week, online smoking cessation plan to all [facility] employees, regardless of whether [place] is your medical insurance provider. Go to [email or web address] and click the Health Risk Assessment and Resources link to get started. In the [employer] menu, click Action Plans instead of Health Risk Assessment to access the Quit Smoking Action Plan. Additional smoking cessation resources are also available to all [facility] employees on the [employer] web page at [email or web address]/quits mary ann. [place] Tobacco Cessation Program If [employer] [place] is your medical insurance provider, there are more free resources available to you, including: No copays or deductibles on local tobacco cessation counseling services to help you quit Prescription assistance for tobacco cessation medications to help you quit For details about the tobacco cessation program available to [facility] [place] members, go to www.fitmob.[employer] (Search: Tobacco Cessation Program). [place] Tobacco Quit Line 4-884-JFKY-NOW ( ) is a toll-free, telephonic service that helps [place] residents quit smoking and using tobacco. It is staffed by experts who tailor a quit plan for you and provide you with advice. [place] Tobacco Quit Line 0-899-FZLS-NOW ( ) is a toll-free, telephonic service that helps [place] residents quit smoking and using tobacco. It is staffed by experts who tailor a quit plan for you and provide you with advice. Two weeks of nicotine replacement therapy may be provided at no charge, if needed. Additional Resources These national organizations also offer free information and resources to help you quit tobacco: [employer] Cancer Society--www.cancer.org/healthy/s tayawayfromtobacco [employer] Heart Association--www.heart.org (Search: Quit Smoking) Centers for Disease Control and Prevention--www.cdc.gov/tobacco [employer] Lung Association--www.lungusa.org Metoprolol, valsartan, farxiga, spirolactone all for the heart Lipid and liver enzymes in 2-3 months Echo in 2 months Follow up in 3 months As recommended on Nicorette gum label, weeks 1-6 1 piece every 1-2 hours, week 7-9 1 piece every 2-4 hours, weeks 10-12 1 piece every 4-8 hours. Do not use nicotine gum simultaneously with other tobacco products such as cigarettes. With a max of 10 pieces daily. Use only as directed. documented in this encounter [facility] 06-14-2024 Miscellaneous Notes Left message for patient to remind them to bring their most current medication list with them to their appointment. documented in this encounter [facility] 06-14-2024 Telephone encounter Note Left message for patient to remind them to bring their most current medication list with them to their appointment. [facility] 05-30-2024 History of Present illness Narrative Images from the original note were not included. Neuropsychology Art Blue, PhD NEUROPSYCHOLOGICAL EVALUATION Alie Brownlee is a 63 y.o. female referred for neuropsychological evaluation to assist with facilitating and informing medical differential diagnosis and clinical decision-making. The following information was obtained during an interview with the patient and family, as well as review of available records. Of note, patient and family had strong disagreements about her history and level of current function often resulting in arguments. This created difficulty gathering an accurate history. PRESENTING PROBLEM: Referral records mention concern of altered mental status. During the current interview, patient acknowledged only mild decline in memory. Family expressed more significant concern over the past couple years such as repeating self, forgetting conversation, relying on notes more often, losing train of thought, and increased distractibility. Patient reported baseline struggles with numbers. Family also expressed concerns regarding patient's ability to care for herself and manage her home. Apparently there is some difficulty managing finances as well. Family expressed concern about consistency with medication. No driving since 2015. Regarding physical activity, patient reported attending the [facility]. Family says that this is not the case. Apparently maybe she does some walking. Contributing health concerns include cardiac arrest on 05/07/24. Apparently she was transferred to a rehab facility this past Monday and plans are to discharge home on 05/24/24. Regarding sleep quality, patient reported poor fragmented sleep. No pain complaints. No prior neurological history. Family neurological history includes mother with dementia and paternal grandmother with suspected dementia. Denied any psychiatric history. Records report history of bipolar disorder. She did report a great deal of mental stress and grief due to passing of and 2 sons. One PPD smoker. Has history of heavy daily alcohol consumption to the point of passing out. Has been consuming less over the past year. No other reported substance use. [place] language Singaporean. Completed 10 years of formal education and subsequently obtained her GED. 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 Has been on disability for medical issues. There are conflicting reports on reason for disability. , lives alone. Has 4 children, unfortunately 2 of whom have . MEDICAL HISTORY/MEDICATION: MEDICATIONS: No current outpatient medications ASSESSMENT: Presented to appointment on time, alert, and Ox2, temporally disoriented. Rapport easily established. Good eye contact. Socially appropriate during conversation and testing. Hearing adequate for current purposes. Ambulated independently. Purpose for current evaluation explained and patient agreed to participate. Repeated self often and told a lot of stories. Easily frustrated when not doing well. Very tired as she wakes around 3am every day. Performance validity testing revealed variable levels of engagement throughout. As a result, findings are interpreted with caution and represent an underestimation of actual abilities. Vision/Visuoconstruction: Binocular near-point visual acuity 20/50. Visual bhakta full to confrontation. Visuoconstruction <1st %ile, difficulty with task instructions. Nonverbal abstract reasoning <1st %ile, difficult time understanding instructions and simply pointed to random responses. Copy of a complex geometric design <1st %ile characterized by significant visuospatial distortion and poor organization. Motor/Speed of Processing: Left-handed. Information Technology Program Manager strength 7th %ile with right-hand, 3rd %ile with right. Speeded graphomotor transcoding 1st %ile. Attention/Working Memory: Auditory attention/working memory 14th %ile (7 digits forward, 3 digits backward, 2 digits during sequencing). Speeded visual scanning/attention 4th %ile. Speeded visual divided attention d/c. Speech/Language: Expressive speech fluent and absent of paraphasic errors. Comprehension adequate for current purposes. Single-word reading 10th %ile. Generative naming to phonemic cues <1st %ile, 8th %ile to semantic cues. Confrontation naming 12th %ile. Verbal abstract reasoning 10th %ile. Learning and Memory: Learning of a word list 1st %ile (3-4-5-4-5), delayed recall 1st %ile. Recognition discriminability <1st %ile. Forced-choice 15/16. 2 critical item errors. Immediate and delayed recall for prose passages <1st %ile. Recognition 3-9th %ile. Immediate and delayed recall for a variety of geometric figures 1st %ile. Recognition <2nd %ile. Executive Functioning: Novel problem-solving and cognitive flexibility d/c. Emotional Functioning: Minimal depression and anxiety. Denied any thoughts of self-harm. FINDINGS AND RECOMMENDATIONS: CONCLUSIONS: 1. Estimated borderline to low average pre-morbid intellectual functioning. 2. Preserved visual acuity without signs of visual field cut or neglect. 3. Borderline left-hand gross motor function, mild to moderately deficient with right. 4. Minimal depression and anxiety. OPINION: Current neuropsychological evaluation reveals variable levels of engagement throughout. As a result, findings are interpreted with caution and represent an underestimation of actual abilities, reducing confidence in the interpretation of low scores. Minimal psychiatric contribution. 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 There also appears to be some confabulation in her history which would also support such a diagnosis. In addition, there is a strong distractibility component to the presentation. RECOMMENDATIONS: Results and recommendations forwarded to treating physician for review during their next appointment. Patient encouraged to contact this office with any additional questions. Refrain from alcohol. Improved sleep quality. May benefit from grief counseling to assist with the continued bereavement associated with several close family losses. Continued refrain from driving. Family should assist with finances and medication to reduce likelihood of mistakes. Memory strategies: Regularly and frequently review information that must be remembered. Link new information in as many ways as possible to already known information. This strategy creates several avenues for remembering the information later. Utilize external memory sources such as lists, date books, calendars, and pocket-size recorders for information that must be remembered. A smartphone is a useful tool in consolidating all this information into one source. Active listening, such as repeating and summarizing information back to presenter when learning important information for future recall may be beneficial as opposed to simply passive listening. Establish a consistent structured routine. Establish regular physical activity for stress relief, improved cognitive efficiency, and optimal sleep. No need for neuropsychological re-evaluation. Thank you for allowing me to participate in the care of this individual. Please contact me with any questions at [phone]. documented in this encounter [facility] 05-21-2024 Miscellaneous Notes Received new patient referral. Please call patient to schedule a new patient appointment for Altered mental status, unspecified altered mental status type IS THIS DUE TO AN ACCIDENT? IS THIS WORKER'S COMP? PLEASE VERIFY IF THIS IS WORKERS COMP AND DOCUMENT (We do not accept any new workers comp cases) WHAT INSURANCE? HAVE YOU EVER BEEN SEEN BY A NEUROLOGIST BEFORE? 1st attempt - Patient will call us at a later date to schedule. Referred by: ANICETO SAVAGE Dx:Altered mental status, unspecified altered mental status type Thank you! documented in this encounter [facility] 05-21-2024 Telephone encounter Note Received new patient referral. Please call patient to schedule a new patient appointment for Altered mental status, unspecified altered mental status type IS THIS DUE TO AN ACCIDENT? IS THIS WORKER'S COMP? PLEASE VERIFY IF THIS IS WORKERS COMP AND DOCUMENT (We do not accept any new workers comp cases) WHAT INSURANCE? HAVE YOU EVER BEEN SEEN BY A NEUROLOGIST BEFORE? [facility] 05-21-2024 Telephone encounter Note 1st attempt - Patient will call us at a later date to schedule. Referred by: ANICETO SAVAGE Dx:Altered mental status, unspecified altered mental status type Thank you! [facility] 05-20-2024 History of Present illness Narrative Images from the original note were not included. Art Blue, PhD NEUROBEHAVIORAL STATUS EXAMINATION Alie Brownlee is a 63 y.o. female referred for neuropsychological evaluation to assist with facilitating and informing medical differential diagnosis and clinical decision-making. The following information was obtained during an interview with the patient and family, as well as review of available records. Of note, patient and family had strong disagreements about her history and level of current function often resulting in arguments. This created some difficulty gathering and accurate history. PRESENTING PROBLEM AND HISTORY Referral records mention concern of altered mental status. During the current interview, patient acknowledged only mild decline in memory. Family expressed more significant concern over the past couple years such as repeating self, forgetting conversation, relying on notes more often, losing train of thought, and increased distractibility. Patient reported baseline struggles with numbers. Family also expressed concerns regarding patient's ability to care for herself and manage her home. Apparently there is some difficulty managing finances as well. Family expressed concern about consistency with medication. No driving since 2016. Regarding physical activity, patient reported attending the [facility]. Family says that this is not the case. Apparently she does some walking. Conserving health concerns include cardiac arrest on 05/07/24. Apparently she was transferred to a rehab facility this past Monday and plans are to discharge home on 05/24/24. Regarding sleep quality, patient reported poor fragmented sleep. No pain complaints. No prior neurological history. Family neurological history includes mother with dementia and paternal grandmother with suspected dementia. Denied any psychiatric history. However, she did report a great deal of mental stress and grief due to passing of and 2 sons. One PPD smoker. Has history of heavy daily alcohol consumption to the point of passing out. Has been consuming less over the past year. No other reported substance use. [place] language Singaporean. Completed 10 years of formal education and subsequently obtained her GED. 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 Has been on disability for medical issues. There is conflicting reports on reason for disability. , lives alone. Has 4 children, unfortunately 2 of whom have . MEDICAL HISTORY/MEDICATION: No past medical history on file. MEDICATIONS: No current outpatient medications INITIAL IMPRESSION AND PLAN: Memory loss, concentration deficit, family history of dementia, history of alcohol abuse, and bereavement: The patient will be scheduled for neuropsychological assessment, which will include tests for memory, reasoning, language, problem-solving, attention, and mood. Thank you for allowing me to participate in the care of this individual. Please contact me with any questions at [phone]. documented in this encounter [facility] 05-18-2024 Hospital course Narrative Images from the original note were not included. [facility] [address] [facility] [id number] Hospital Medicine Discharge Summary Patient: Alie Briones Date of : 1960 Room: B664/01 Encounter date: 05/18/24 Hospital Day: 12 DATE OF ADMISSION: 05/07/2024 DATE OF DISCHARGE:05/18/2024 DISCHARGE DIAGNOSES Principal Problem: CHB (complete heart block) ([facility]) Active Problems: HTN (hypertension) ST elevation myocardial infarction (STEMI) ([facility]) Coronary artery disease involving skagway coronary artery of skagway heart Mixed hyperlipidemia [facility] Neu[facility] Nephrology Cardiology PCP: [facility] PROCEDURES Cardiac cath, PCI GARETT X2 HOSPITAL COURSE SUMMARY Alie Briones is a 63 y.o. female with past medical history significant for hypertension and hyperlipidemia. Patient initially presented to [facility] on 05/07[facility]2024 for evaluation after a fall with associated crushing chest pains. In the ER, EKG showed concerns for complete heart block for which Cardiology was consulted and patient was transferred to [facility] for further management under their service. On arrival to [facility] a repeat EKG revealed anterior lead ST segment elevations. Echocardiogram on 05/08 with moderate to severely decreased LV systolic function with EF 30-35% and anterior and anteroseptal akinesis for which the patient was urgently taken to film laboratory technician for anterior STEMI. Patient s/p GARETT to pLAD on 05/07/2024 and now also s/p staged PCI of OM. Repeat echocardiogram now revealing EF 20-25% on 05/11/2024. Nephrology has been following along for management of hypovolemic hyponatremia. Neurology was consulted due to acute metabolic encephalopathy likely multifactorial to alcohol use, age, and self-medication with herbal drugs. Neurology also recommended outpatient MRI of cervical and lumbar spines for further evaluation of ruling out possible myeloradiculopathy contributing to patient's fall. Cardiology deemed the patient stable for transfer out of ICU and requested Internal Medicine assuming primary. During admission patient was seen by electrophysiology for her complete heart block in the setting of STEMI with recurrent syncope, syncope resolved. They stated no plans for pacemaker at this time, they recommended she discharge with 30 day Mcot to evaluate for further episodes of high-degree heart block, and follow up with EP if EF remains less than 30% after 3 months of GDMT. She had PCI/GARETT to pLAD on 05/07/24 and staged PCI/GARETT OM2 on 05/09/2024. Her ejection fraction was found to be 20-25%. Cardiology was following, started on aspirin, Effient, Lipitor, Toprol, valsartan, Farxiga, Aldactone, Diovan. She had LifeVest placed prior to discharge, she will follow up closely with Cardiology after discharge. Nephrology saw the patient during admission due to hypovolemic hyponatremia, they recommended she continue her fluid restriction, orders placed. No need for follow up with Nephrology. She was seen by Neurology for acute encephalopathy which was likely toxic metabolic, she does have a history of alcoholism as well as opiate/substance abuse. EEG completed, normal. Neurology recommended outpatient MRI of cervical and lumbar spines for further evaluation of ruling out possible myelo radiculopathy contributing to patient's initial fall. Outpatient orders placed, outpatient referral to Neurology placed. New medications at discharge include aspirin, Farxiga, folic acid, prn Ativan, Toprol, Effient, Senokot, Aldactone, vitamin B1, Diovan, her Lipitor dose was increased. She was stopped on amlodipine. Discussed with the attending MD, patient is stable for discharge at this time to residential facility. Discharge Day Progress Note 05/18/24 Hemodynamically stable. No chest pain, shortness of breath, fever, chills, nausea, vomiting, palpitations, or abdominal pain reported. No events reported overnight. Review of Systems Constitutional: Negative for activity change, appetite change, fatigue and unexpected weight change. HENT: Negative for trouble swallowing. Respiratory: Negative for cough, sputum production, shortness of breath and wheezing. Cardiovascular: Negative for chest pain, palpitations and leg swelling. Gastrointestinal: Negative for abdominal pain, blood in stool, melena, constipation, diarrhea, nausea and vomiting. Genitourinary: Negative for difficulty urinating. Skin: Negative for color change and wound. Neurological: Negative for dizziness, seizures, speech difficulty and headaches. Positive for confusion Psychiatric/Behavioral: Negative for sleep disturbance. BP 113/74 Pulse 96 Temp 36.7 C (98 F) (Oral) Resp 16 Ht 152.4 cm (5') Wt 41 kg (90 lb 6.2 oz) SpO2 97% BMI 17.65 kg/m Temp: [36.6 C (97.8 F)-36.9 C (98.4 F)] 36.7 C (98 F) Pulse: [66-96] 96 Resp: [15-16] 16 BP: (104-135)/(50-74) 113/74 SpO2: [96 %-98 %] 97 % O2 Device: None (Room air) O2 Flow Rate (L/min): [0 L/min] 0 L/min Intake/Output Summary (Last 24 hours) at 05/18/2024 1255 Last data filed at 05/18/2024 1135 Gross per 24 hour Intake 786 ml Output -- Net 786 ml Physical Exam Constitutional: General: No acute distress. Cardiovascular: Rate and Rhythm: Normal rate and regular rhythm. Heart sounds: Normal heart sounds, S1 normal and S2 normal. Pulmonary: Effort: Pulmonary effort is normal. Breath sounds: Normal breath sounds. Abdominal: General: Bowel sounds are normal. Palpations: Abdomen is soft. Tenderness: There is no abdominal tenderness. Musculoskeletal: Right lower leg: No edema. Left lower leg: No edema. Skin: General: Skin is warm and dry. Coloration: Skin is not pale. Neurological: General: No focal deficit present. Alert, oriented to person, place Psychiatric: Mood and Affect: Mood normal. Behavior: Behavior normal. Code Status: Full Code Labs Recent Results (from the past 48 hours) CBC without diff Collection Time: 05/17/24 3:45 AM Result Value Ref Range White Blood Cells 7.0 4.0 - 11.0 X10E9/L RBC count 3.79 (L) 3.80 - 5.20 X10E12/L Hemoglobin 12.8 11.7 - 15.5 g/dL Hematocrit 36.6 35 - 47 % MCV 97 80 - 100 fL MCH 33.7 27 - 34 pg MCHC 34.9 32 - 36 g/dL RDW 13.3 11.5 - 15.0 % Platelets 388 150 - 450 X10E9/L MPV 7.7 7 - 12 fL Comprehensive metabolic panel Collection Time: 05/17/24 3:45 AM Result Value Ref Range Sodium 133 (L) 134 - 146 mmol/L Potassium, Bld 4.0 3.5 - 5.0 mmol/L Chloride 100 98 - 109 mmol/L CO2 23 22 - 32 mmol/L Anion gap 10 5 - 15 mmol/L BUN 12 5 - 27 mg/dL Creatinine 0.48 0.40 - 1.00 mg/dL Glucose 105 (H) 65 - 99 mg/dL Calcium 9.1 8.5 - 10.5 mg/dL Total Protein 6.8 6.0 - 8.0 g/dL Albumin 3.9 3.2 - 5.3 g/dL Alkaline Phosphatase 77 39 - 130 U/L AST 18 0 - 41 U/L ALT 16 0 - 31 U/L Total bilirubin 0.4 0.3 - 1.2 mg/dL eGFR (CKD-EPI)non-race dependent >90 >59 ml/min/1.73sq.m Magnesium Collection Time: 05/17/24 3:45 AM Result Value Ref Range Magnesium 2.1 1.8 - 2.6 mg/dL Phosphorus Collection Time: 05/17/24 3:45 AM Result Value Ref Range Phosphorus 4.3 2.4 - 4.9 mg/dL Ionized calcium Collection Time: 05/17/24 3:45 AM Result Value Ref Range Calcium, ionized 4.6 4.5 - 5.3 mg/dL Basic Metabolic Panel Collection Time: 05/18/24 5:19 AM Result Value Ref Range Sodium 134 134 - 146 mmol/L Potassium, Bld 4.2 3.5 - 5.0 mmol/L Chloride 99 98 - 109 mmol/L CO2 25 22 - 32 mmol/L Anion gap 10 5 - 15 mmol/L BUN 8 5 - 27 mg/dL Creatinine 0.44 0.40 - 1.00 mg/dL Glucose 104 (H) 65 - 99 mg/dL Calcium 9.6 8.5 - 10.5 mg/dL eGFR (CKD-EPI)non-race dependent >90 >59 ml/min/1.73sq.m Magnesium Collection Time: 05/18/24 5:19 AM Result Value Ref Range Magnesium 2.1 1.8 - 2.6 mg/dL Phosphorus Collection Time: 05/18/24 5:19 AM Result Value Ref Range Phosphorus 4.4 2.4 - 4.9 mg/dL Ionized calcium Collection Time: 05/18/24 5:19 AM Result Value Ref Range Calcium, ionized 5.0 4.5 - 5.3 mg/dL Radiology Echo limited W/O contrast Result Date: 05/10/2024 Narrative: Left Ventricle: Left ventricle appears normal in size. Systolic function is severely decreased with an ejection fraction of 20-25%. Right Ventricle: Right ventricular size appears normal. Systolic function is normal. EEG Result Date: 05/10/2024 Narrative: Images from the original result were not included. [facility] EEG REPORT EEG Service Date: 05/10/24 Date of Report: 05/10/24 History: Alie Briones is a 63 y.o. female with hallucinations and memory loss who is undergoing EEG to evaluate for seizures. Centrally active medications: Buspar, diphenydramine, lorazepam, morphine. Procedure: This EEG was acquired with electrodes placed according to the [id number] electrode placement system. The EEG was acquired [...] of intermittent seizures. Kat Marquez M.D., Ph.D. Acoustical Tile Patternmaker [facility] Cardiac Invasive Result Date: 05/10/2024 Narrative: Successful staged revascularization of the 80% stenosis [...] aggressive medical management. Recommend follow-up with primary mainframe developer outpatient. Echo limited W/O contrast Result Date: 05/08/2024 Narrative: Left Ventricle: Left ventricle appears normal in size. Systolic function is moderately to severely decreased with an ejection fraction of 30-35%. Aortic Valve: There is no regurgitation or stenosis. Mitral Valve: There is [id number] regurgitation. There is no evidence of mitral valve stenosis. Tricuspid Valve: There is trace regurgitation. There is no evidence of tricuspid valve stenosis. Cardiac Invasive Result Date: 05/08/2024 Narrative: Successful placement of temporary pacing wire for [...] temporary pacemaker if rhythm stabilizes Electrophysiology consultation X-ray chest 1 view Result Date: 05/07/2024 Narrative: Single view chest XR CHEST 1 VW History: dizziness Comparison: June 30, 2022 Impression: * No consolidation or pleural fluid. No acute findings. Finalized by Nnamdi Amaro MD on 05/07/2024 2:[address] cervical spine without contrast Result Date: 05/07/2024 Narrative: CT CERVICAL SPINE WO CONT INDICATION: Fall, [...] Maximilian Link MD on 05/07/2024 2:45 PM X-ray pelvis 1 or 2 views Result Date: 05/07/2024 Narrative: XR PELVIS 1 OR 2 VWS fall Pelvic trauma Findings: There is grossly no fracture or destructive lesion. Impression: * No acute findings. * Consider MRI if you suspect occult process. Finalized by Nnamdi Amaro MD on 05/07/2024 2:[address] brain without contrast Result Date: 05/07/2024 Narrative: STUDY: CT HEAD WITHOUT CONTRAST CLINICAL HISTORY: [...] Nnamdi Amaro MD on 05/07/2024 2:42 PM DISCHARGE INSTRUCTION [facility] Condition: Stable Activity: activity as tolerated Diet: Adult diet Regular Texture; No Added Salt (3-4 gm Sodium); Low Fat/Low Cholesterol; Fluid Restriction 1500 mL Adult diet Follow up: [facility] within 7-14 days. Cardiology Neurology EP Labs/Imaging/Pathology: Discharge Medications: Medication List START taking these medications Instructions Last Dose Given Next Dose Due aspirin 81 mg chewable tablet Chew 1 tablet (81 mg total) and swallow in the morning for 90 days. dapagliflozin propanediol 10 mg tablet Commonly known as: FARXIGA Take 1 tablet (10 mg total) by mouth in the morning for 90 days. folic acid 1 mg tablet Commonly known as: FOLVITE Take 1 tablet (1 mg total) by mouth in the morning. LORazepam 0.5 mg tablet Commonly known as: ATIVAN Take 1 tablet (0.5 mg total) by mouth nightly as needed for anxiety for up to 1 day. metoprolol succinate XL 25 mg 24 hr tablet Commonly known as: TOPROL XL Take 0.5 tablets (12.5 mg total) by mouth in the morning. prasugreL HCl 10 mg tablet Commonly known as: EFFIENT Take 1 tablet (10 mg total) by mouth in the morning. sennosides-docusate sodium 8.6-50 mg Commonly known as: SENOKOT-S Take 2 tablets by mouth 2 (two) times a day as needed for constipation. spironolactone 25 mg tablet Commonly known as: ALDACTONE Take 1 tablet (25 mg total) by mouth in the morning. thiamine HCl 100 mg tablet Commonly known as: VITAMIN B-1 Take 1 tablet (100 mg total) by mouth in the morning. valsartan 40 mg tablet Commonly known as: DIOVAN Take 1 tablet (40 mg total) by mouth in the morning and 1 tablet (40 mg total) before bedtime. CHANGE how you take these medications Instructions Last Dose Given Next Dose Due atorvastatin 80 mg tablet Commonly known as: LIPITOR What changed: medication strength how much to take when to take this Take 1 tablet (80 mg total) by mouth nightly. CONTINUE taking these medications Instructions Last Dose Given Next Dose Due busPIRone 10 mg tablet Commonly known as: BUSPAR Take 1 tablet (10 mg total) by mouth in the morning and 1 tablet (10 mg total) before bedtime. DULoxetine 60 mg capsule Commonly known as: CYMBALTA Take 1 capsule (60 mg total) by mouth in the morning. gabapentin 300 mg capsule Commonly known as: NEURONTIN Take 1 capsule (300 mg total) by mouth in the morning and 1 capsule (300 mg total) at noon and 1 capsule (300 mg total) in the evening and 1 capsule (300 mg total) before bedtime. STOP taking these medications amLODIPine 2.5 mg tablet Commonly known as: NORVASC baclofen 10 mg tablet Commonly known as: LIORESAL cyclobenzaprine 10 mg tablet Commonly known as: FLEXERIL ibuprofen 600 mg tablet Commonly known as: MOTRIN QUEtiapine 200 mg tablet Commonly known as: SEROquel VALTREX 1000 mg tablet Generic drug: valACYclovir Where to Get Your Medications You can get these medications from any pharmacy Bring a paper prescription for each of these medications LORazepam 0.5 mg tablet Information about where to get these medications is not yet available Ask your nurse or doctor about these medications aspirin 81 mg chewable tablet atorvastatin 80 mg tablet busPIRone 10 mg tablet dapagliflozin propanediol 10 mg tablet DULoxetine 60 mg capsule folic acid 1 mg tablet metoprolol succinate XL 25 mg 24 hr tablet prasugreL HCl 10 mg tablet sennosides-docusate sodium 8.6-50 mg spironolactone 25 mg tablet thiamine HCl 100 mg tablet valsartan 40 mg tablet >30 minutes were spent on discharging this patient. MARCIAL PALACIOS 05/18/2024 12:55 PM [facility] Internal Medicine 7AM-7PM & 7PM-7AM: EpicChat or page through [employer]. MARCIAL Palacios 05/18/24 1302 Patient seen and examined Interviewed and any questions answered All labs , xrays reviewed Clinical assessment and decisions made by myself in entirety Discussed case with team Agree with above assessment and plan Electronically signed by: HERMANN MCCLOUD MD, 05/18/2024 3:48 PM [facility] at [address], [address] [place] [address] (P): [phone] (F): [phone] documented in this encounter [facility] [employer] [facility] 05-18-2024 Miscellaneous Notes DISCHARGE PLANNING NOTE Authorization for SNF approved per [facility]. [facility] able to accept today. Tasked transport for 3pm, await confirmation. CN updated patient and 2nd IMM given. CN also contacted patient's daughter, Tonny, and updated her on discharge today. Patient and daughter agreeable to plan. Discharge packet complete. - Romi Jacobs RN 05/18/24 11:35 AM DISCHARGE PLANNING NOTE BLS transport to [facility] on 05/18/24 at 1500 hours via PTN. Confirmed in [facility]. DISCHARGE PLANNING NOTE Prior Auth approved for admission to : [facility] (P#: ; F#: ) Approval # [id number] Valid for Dates: 05/17/2024-05/22/2024 Problem: Pain Goal: Patient goal is pain score less than 4, able to rest, and participant in treatment plan as appropriate Description: INTERVENTIONS: 1. Encourage patient or legal direct sales representative to report early pain and ask [...] per policy 9. Teach patient or legal direct sales representative interventions for comforting Outcome: Progressing Note: Evaluation of progress towards goal: Pt currently denies any pain. Prn meds available. Pt encouraged to express needs for pain medication on a scale of 0-10. Vitals signs being monitored per policy. rn will check pain scale Q4H. Will continue to monitor for pain until end of hospital stay. Problem: Safety Goal: Patient will be injury free during hospitalization Description: INTERVENTIONS: 1. Assess patient's risk for falls and implement fall prevention plan of care per policy 2. Provide and maintain a safe environment 3. Proper use of double Identifiers 4. Medication administration using the 5 rights 5. Hand hygiene 6. Specimens are labeled at the bedside 7. Instruct patient/ patient direct sales representative about use of safety devices 8. Include patient/ patient direct sales representative in decisions related to safety Outcome: Progressing Note: Evaluation of progress towards goal: Pt remains free from falls and injuries since beginning of shift. Call light within reach. Bed rails up x3. Orientation reviewed. Hourly rounded maintained. Will continue to maintain safety until end of hospital stay. Problem: Knowledge Deficit Goal: Patient/patient direct sales representative demonstrates understanding of disease process, treatment plan, medications, and discharge instructions Description: INTERVENTIONS 1. Complete learning assessment and assess knowledge base 2. Provide teaching at level of understanding 3. Provide teaching via preferred learning method(s) Outcome: Progressing Note: Evaluation of progress towards goal: Patient educated on daily plan of care and current medications. Patient verbalizes understanding and denies any questions at this time. DISCHARGE PLANNING NOTE Referral updates to [facility] (P#: ; F#: ) DISCHARGE PLANNING NOTE Prior auth submitted to: [facility] [employer] [employer] Via: availity On behalf of : [facility] (P#: ; F#: ) Ref # [id number] DISCHARGE PLANNING NOTE [facility] is able to accept. Task to [facility] to send clinical updates and to submit for auth. Sw left a message for pt's dtr to update her on plan. - TURNER Benz 05/17/24 3:25 PM Problem: Pain Goal: Patient goal is pain score less than 4, able to rest, and participant in treatment plan as appropriate Description: INTERVENTIONS: 1. Encourage patient or legal direct sales representative to report early pain and ask [...] per policy 9. Teach patient or legal direct sales representative interventions for comforting Outcome: Progressing Note: Evaluation of progress towards goal: Patient remains free from pain and discomfort at this time. Patient is encouraged to express need for pain medication on a scale of 1-10. PRN medications are available when needed. Denies any need for pain medication at this time. No signs or symptoms of distress. Vital signs are monitored per policy. RN will continue to check pain scale every 4 hours. Will continue to assess and monitor patient. Hourly rounding done per protocol. Problem: Safety Goal: Patient will be injury free during hospitalization Description: INTERVENTIONS: 1. Assess patient's risk for falls and implement fall prevention plan of care per policy 2. Provide and maintain a safe environment 3. Proper use of double Identifiers 4. Medication administration using the 5 rights 5. Hand hygiene 6. Specimens are labeled at the bedside 7. Instruct patient/ patient direct sales representative about use of safety devices 8. Include patient/ patient direct sales representative in decisions related to safety Outcome: Progressing Note: Evaluation of progress towards goal: Patient remains free from falls and injury during this time. Call light and personal items within reach. Bed rails x 2. Bed lowest position and locked. Patient needs reassessed and addressed. Patient environment free from clutter. Will continue to monitor patient. Hourly rounding per protocol. Problem: Infection Goal: Absence of infection during [...] hygiene technique. 7. Identify and instruct patient/patient direct sales representative in use of appropriate isolation precautions for identified infection/symptoms. 8. Provide and discuss with patient/patient direct sales representative on educational MDRO sheet. 9. Encourage and monitor nutritional status daily and consult flower grower if indicated. 10. Implement neutropenic guidelines as needed. Outcome: Progressing Note: Evaluation of progress towards goal: Pt remains free from s/s of infection. Vitals and labs wnl. Skin remains cdi with no signs of infection. ivs being monitored for s/s of infection. Will continue to monitor for s/s of infection until end of hospital stay. Cosigned by Karina Yousif RN at 05/17/2024 11:52 AM EDT Associated attestation - Karina Yousif RN - 05/17/2024 11:52 AM EDT Karina Yousif RN DISCHARGE PLANNING NOTE [facility] is unable to accept. Sw called pt's dtr and she would prefer [facility], await response from them. Dtr will accept [facility] if that is the only available option, she reports the distance from family is far. Await response from [facility], they are just waiting on lifevest cost. Sw to follow. - TURNER Benz 05/17/24 3:24 PM Speech Therapy Speech & Language Cognitive Evaluation and Treatment Note Impressions Receptive Language: Within Functional Limits Expressive Language: Within Functional Limits Cognitive Linguistic: Moderate Recommendations Discharge Recommendations: [facility]entiary facility Rehab Therapy Type: Individual treatment Plan Frequency: 2-3days/week Duration: until discharge Treatments/Modalities: Strategies/techniques training Need for skilled Speech Language Pathology Services to address deficits in speech/language/cognition due to a status decline resulting from complete heart block. Pt educated on results and recommendations of evaluation. Pt responds well to verbal cues, increased processing time, repetition, and semantic cues. Will continue to follow along. Prognosis Services: Skilled REFRIGERATING OILER services to address the above deficits Prognosis/Potential: Good Considerations: Age, Ability to learn, Previous level of function Assessment Oral/Motor Overall Oral/Motor Status: Within Functional Limits Intelligibility: Intelligible Breath Support: Adequate for speech Dentition: Adequate Xerostomia: No Hearing: Within Functional Limits Auditory Comprehension Overall Auditory Comphension Status: Within Functional Limits Perception Overall Perception Status: Exceptions to Within Functional Limits Initiation: Cues to initiate tasks Visual Recognition Overall Visual Recognition Status: Within Functional Limits Expression Overall Expression Status: Within Functional Limits Primary Mode of Expression: Verbal Verbal Expression Overall Verbal Expression Status: Within Functional Limits Speech Production Overall Speech Production: Within Functional Limits Voice Evaluation Overall Voice Impairment Severity: None Pragmatics/Social Functioning Overall Pragmatic Status: Exceptions to Within Functional Limits Topic Initiation: Mild Topic Maintenance: Moderate Turn Taking: Moderate Fluency Comments: no dysfluencies noted High Level Language Overall High Level Language Status: Exceptions to Within Functional Limits Attention: Exceptions to WFL Alternating Attention: Moderate Divided Attention: Moderate Selective Attention: Moderate Sustained Attention: Moderate Memory: Exceptions to WFL Daily Routines: Mild Long-term Memory: Mild People Encountered: Moderate Immediate Memory: Moderate Short-term Memory: Moderate Working Memory: Moderate Problem Solving: Exceptions to WFL Complex Functional Tasks: Moderate Managing Finances: Mild Verbal Reasoning Skills: Moderate Abstract Reasoning: Mild Inductive Reasoning: Mild Deductive Reasoning: Mild Safety/Judgement: Exceptions to WFL Complex Functional Tasks: Moderate Novel Situations: Mild Unable to Self-monitor and Self-correct Consistently: Moderate Insight: Mild insight Impulsive: Mildly impulsive Task Initiation: Initiates with cues Flexibility of Thought: Reduced flexibility Planning: Reduced planning skills Organization: Moderately disorganized Cognition Overall Cognitive Status: Exceptions to Within Functional Limits Attention Span: Difficulty attending to directions Memory: Decreased immediate memory, Decreased short term memory, Decreased recall of precautions, Decreased recall of recent events Orientation Level: Disoriented to time, Oriented to person, Oriented to situation, Oriented to place Safety Judgment: Decreased awareness of need for assistance, Decreased awareness of need for safety Awareness of Errors: Decreased awareness of errors Insight of Deficits: Decreased awareness of deficits Problem Solving: Assistance required to generate solutions, Assistance required to implement solutions Pain Assessment Pain Assessment: No/denies pain Plan Diagnosis Code Language: R48.8 Other symbolic dysfunction/acalculia/agraphia Speech Therapy Care Plan Speech Therapy Care Plan (Active) Template: ST - Rehab Speech Problem: Cognitive Linguistic Dates: Start: 05/17/24 Disciplines: REFRIGERATING OILER Goal: LTG: Patient will display functional cognitive-linguistic skills to demonstrate appropriate communication and safety within daily activities in a functional living environment Dates: Start: 05/17/24 Expected End: 06/16/24 Disciplines: REFRIGERATING OILER Goal: STG: Patient will demonstrate sustained attention by maintaining focus during a task for 10 minutes with minimal assistance Dates: Start: 05/17/24 Expected End: 06/16/24 Disciplines: REFRIGERATING OILER Goal: STG: Patient will demonstrate alternating attention by shifting the focus of attention between tasks/activities/ideas with minimal assistance 90% of the time Dates: Start: 05/17/24 Expected End: 06/16/24 Disciplines: REFRIGERATING OILER Goal: STG: Patient will describe/demonstrate/initiate use of 3 memory strategies with minimal cueing Dates: Start: 05/17/24 Expected End: 06/16/24 Disciplines: REFRIGERATING OILER Problem: High Level Language Dates: Start: 05/17/24 Disciplines: REFRIGERATING OILER Goal: LTG: Patient will demonstrate use of self-awareness, goal setting, planning, initiation, self-monitoring and problem solving during daily activities to improve safety and awareness in a functional living environment Dates: Start: 05/17/24 Expected End: 06/16/24 Disciplines: REFRIGERATING OILER Goal: STG: Patient will provide 3 appropriate solutions to problems of daily living with 90% accuracy with minimal cueing Dates: Start: 05/17/24 Expected End: 06/16/24 Disciplines: REFRIGERATING OILER Goal: STG: Patient will demonstrate functional problem solving and safety awareness with 90% accuracy in daily living tasks in order to increase safe interactions with environment and decrease assistance from caregivers Dates: Start: 05/17/24 Expected End: 06/16/24 Disciplines: REFRIGERATING OILER Goal: STG: Patient will complete simple to complex organization, scheduling, planning and reasoning tasks to improve problem solving and safety awareness with 90% accuracy with minimal cueing Dates: Start: 05/17/24 Expected End: 06/16/24 Disciplines: REFRIGERATING OILER Problem: Pragmatics Dates: Start: 05/17/24 Disciplines: REFRIGERATING OILER Goal: LTG: Patient will demonstrate appropriate social interaction skills in routine daily living activities to communicate basic social and medical needs in a functional living environment Dates: Start: 05/17/24 Expected End: 06/16/24 Disciplines: REFRIGERATING OILER Goal: STG: Patient will maintain/extend topic for turns in unstructured/structured topic in 1:1/small group conversation via statements and questions with minimal cueing per session Dates: Start: 05/17/24 Expected End: 06/16/24 Disciplines: REFRIGERATING OILER Speech Therapy Care Plan (Resolved) There are no resolved problems. Principal Problem: CHB (complete heart block) ([facility]) Active Problems: HTN (hypertension) ST elevation myocardial infarction (STEMI) ([facility]) Coronary artery disease involving [place] coronary artery of [place] heart Mixed hyperlipidemia Occupational Therapy Treatment Discharge Recommendations OT Recommendations : [facility] SNF/ECF Comments: SNF is recommended due to pt requiring assist with ADL completion and mobility. SNF would help pt improve strength and endurance prior to returning home. 6 Clicks: Daily Activity Putting on and taking off regular lower body clothing?: A little Bathing (including washing, rinsing, drying)?: A lot Toileting, which includes using toilet, bedpan or urinal?: A little Putting on and taking off regular upper body clothing?: A little Taking care of personal grooming such as brushing teeth?: A little Eating meals?: None Scoring Daily Activity Raw Score: 18 CMS G Code Modifier: CK OT Treatment/Interventions: ADL retraining, Functional transfer training, UE strengthening/ROM, Endurance training, Cognitive reorientation, Patient/family training, Equipment eval/education, Balance, Compensatory technique education, Functional activities OT Frequency: 4-5days/week OT Duration: LOS Assessment Patient Assessment Therapy Problem List: Decreased ADL status, Decreased balance, Decreased cognition, Decreased endurance, Decreased high-level ADLs, Decreased mobility, Decreased safe judgement during ADL, Decreased self-care trans, Decreased UE ROM, Decreased UE strength Patient Response to Treatment: Progressing toward goals Mood/Affect: Appropriate for circumstances Rehab Prognosis: Good, With continued OT status post acute discharge Visit RN Communication: Yes Medical Record Reviewed: Yes OT Type of Visit: Treatment Precautions Activity: Early mobility, pass Equipment: Gait belt, RW Telemetry/Top Flavor Attendant: Yes Other Cardiac Monitoring Devices: Cardiac Life Vest Oxygen Used: Room air Other: Fall risk, history of falls and dementia, CIWA protocol, bed/chair alarms Pain Assessment Pain Assessment: No/denies pain ADL / IADL Hand Dominance: Left Where Assessed: Standing at sink Grooming Assistance: Contact guard assist LE Dressing Assistance: Contact guard assist Other: Pt completed oral and facial hygiene while standing at the sink for 3 minutes requiring CGA for stability with standing. Pt also completed LB dressing doffing/donning pants while standing at toilet with CGA for stability. Home Management - IADL Other: Pt completed oral and facial hygiene while standing at the sink for 3 minutes requiring CGA for stability with standing. Pt also completed LB dressing doffing/donning pants while standing at toilet with CGA for stability. Hearing / Speech / Vision Hearing: Within Functional Limits Speech: Within Functional Limits Current Vision: Wears glasses all the time Cognition Overall Cognitive Status: Exceptions to Within Functional Limits Arousal/Alertness: Appropriate responses to stimuli Attention Span: Attends with cues to redirect Memory: Decreased recall of precautions, Decreased recall of recent events, Decreased short term memory Orientation Level: Oriented to person, Oriented to age, Disoriented to time, Disoriented to situation, Disoriented to place, Oriented to time Following Commands: Follows one step commands with increased time, Follows one step commands with repetition Safety Judgment: Decreased awareness of need for assistance, Decreased awareness of need for safety Awareness of Errors: Decreased awareness of errors Insight of Deficits: Decreased awareness of deficits Problem Solving: Reduced Other: Pt cooperative throughout session, but exhibits poor short term memory and requires repeated cueing for redirection to task. Pt also exhibits limited follow through with safety cues. Sensation Overall Sensation Status: (Pt reports tingling in fingertips.) Bed Mobility Supine to Sit: Stand by assist Sit to Supine: (Pt left in chair with call light and chair alarm at end of session.) Other: Pt completed bed mobility with HOB elevated and use of bedrail requiring standby A for safety. Transfers Sit to Stand: Contact guard assist Stand to Sit: Contact guard assist Toilet Transfers: Contact guard assist Other: Pt completed STS transfer from EOB and toilet with VCs for proper hand placement and CGA for stability upon standing. Gait Gait Assistance: Contact guard assist Assistive Device: Rolling walker Gait Distance: 70' x2 +10' Limiting Factors to Gait: Fatigue, Weakness Other: Pt completed functional mobility with use of RW and CGA for stability. Pt required increased time and repeated cueing for positioning with RW, however, pt exhibited poor follow through and walked with walker extended in front of her. Balance Sitting Balance: Static: Good Sitting Balance: Dynamic: Good Standing Balance: Static: Fair Standing Balance: Dynamic: Fair Other: Pt sat unsupported in chair while completing exercises, but required use of RW upon standing for BUE support. 05/17/24 0843 UE ROM UE ROM exercises performed? Yes Scapular retraction X Shoulder flexion/extension X Shoulder horizontal abduction/adduction X Other Seated AROM Repetitions 15 Activity Tolerance Endurance: Tolerates >30 minutes activity with rest breaks Other: Pt activity is limited due to weakness, fatigue, and impaired cognition. Plan Occupational Therapy Care Plan Occupational Therapy Care Plan (Active) Template: OT - Occupational Therapy Problem: Activity Tolerance Dates: Start: 05/11/24 Disciplines: OT Goal: Tolerate > 30 minutes of activity WITH rest breaks Dates: Start: 05/11/24 Expected End: 06/01/24 Description: Goal Description: Disciplines: OT Outcomes Date/Time User Outcome 05/17/24 0957 Brandt Tucker, Student OT Progressing 05/15/24 1153 SHEYLA AgostoA/Ruby Progressing 05/13/24 1453 JESSIE Campbell Progressing Goal Note filed on 05/13/24 145 by JESSIE Campbell Evaluation of progress towards goal: Problem: Bed Mobility Dates: Start: 05/11/24 Disciplines: OT Goal: Patient will perform bed mobility with Modified [place] Dates: Start: 05/11/24 Expected End: 06/01/24 Description: Goal Description: Disciplines: OT Outcomes Date/Time User Outcome 05/17/24 0957 Brandt Tucker, Student OT Progressing Problem: Functional Mobility Dates: Start: 05/11/24 Disciplines: OT Goal: Patient will perform functional mobility with Modified [place] Dates: Start: 05/11/24 Expected End: 06/01/24 Description: Goal Description: Disciplines: OT Outcomes Date/Time User Outcome 05/17/24 09Danica Tucker, Student OT Progressing 05/15/24 1153 LOUISA Agosto/Ruby Progressing 05/13/24 1453 JESSIE Campbell Progressing Goal Note filed on 05/13/24 145 by JESSIE Campbell Evaluation of progress towards goal: Problem: Other (Customize) Dates: Start: 05/11/24 Disciplines: OT Goal: Improve Dates: Start: 05/11/24 Expected End: 06/01/24 Description: Pt will participate in BADL routine at Mod I level, using AD and compensatory strategies as needed. Disciplines: OT Outcomes Date/Time User Outcome 05/17/24 09Danica Tucker, Student OT Progressing 05/15/24 1153 LOUISA Agosto/Ruby Progressing 05/13/24 1453 JESSIE Campbell Progressing Goal Note filed on 05/13/24 145 by JESSIE Campbell Evaluation of progress towards goal: Problem: Sitting Balance Dates: Start: 05/11/24 Disciplines: OT Goal: Improve balance to good Dates: Start: 05/11/24 Expected End: 06/01/24 Description: Static Dynamic Disciplines: OT Outcomes Date/Time User Outcome 05/17/24 0957 Brandt Tucker, Student OT Progressing 05/15/24 1153 SHEYLA AgostoA/Ruby Progressing 05/13/24 1453 SHEYLA CampbellA/Ruby Progressing Goal Note filed on 05/13/24 1453 by LOUISA Campbell/Ruby Evaluation of progress towards goal: Problem: Standing Balance Dates: Start: 05/11/24 Disciplines: OT Goal: Improve balance to good Dates: Start: 05/11/24 Expected End: 06/01/24 Description: Static Dynamic Disciplines: OT Outcomes Date/Time User Outcome 05/17/24 0957 Brandt Tucker, Student OT Progressing 05/15/24 1153 LOUISA Agosto/Ruby Progressing 05/13/24 1453 LOUISA Campbell/Ruby Progressing Goal Note filed on 05/13/24 1453 by LOUISA Campbell/Ruby Evaluation of progress towards goal: Problem: Strength Dates: Start: 05/11/24 Disciplines: OT Goal: Improve strength Dates: Start: 05/11/24 Expected End: 06/01/24 Description: Of extremity/ location: BUE to 5/5 To facilitate: increased overall strength and activity tolerance for ADL/transfers. Disciplines: OT Outcomes Date/Time User Outcome 05/17/24 0957 Brandt Tucker, Student OT Progressing 05/15/24 1153 LOUISA Agosto/Ruby Progressing 05/13/24 1453 LOUISA Campbell/Ruby Progressing Goal Note filed on 05/13/24 1453 by LOUISA Campbell/Ruby Evaluation of progress towards goal: Problem: Toilet Transfers Dates: Start: 05/11/24 Disciplines: OT Goal: Patient will perform toilet transfers with Modified [place] Dates: Start: 05/11/24 Expected End: 06/01/24 Description: Goal Description: Disciplines: OT Outcomes Date/Time User Outcome 05/17/24 0957 Brandt Tucker, Student OT Progressing 05/13/24 1453 LOUISA Campbell/Ruby Progressing Goal Note filed on 05/13/24 1453 by LOUISA Campbell/Ruby Evaluation of progress towards goal: Problem: Transfers Dates: Start: 05/11/24 Disciplines: OT Goal: Patient will perform transfers with Modified [place] Dates: Start: 05/11/24 Expected End: 06/01/24 Description: Goal Description: Disciplines: OT Outcomes Date/Time User Outcome 05/17/24 0957 Brandt Tucker, Student OT Progressing 05/15/24 1153 LOUISA Agosto/Ruby Progressing 05/13/24 1453 JESSIE Campbell Progressing Goal Note filed on 05/13/24 1453 by LOUISA Campbell/Ruby Evaluation of progress towards goal: Occupational Therapy Care Plan (Resolved) There are no resolved problems. Principal Problem: CHB (complete heart block) ([facility]) Active Problems: HTN (hypertension) ST elevation myocardial infarction (STEMI) ([facility]) Coronary artery disease involving [place] coronary artery of [place] heart Mixed hyperlipidemia Cosigned by Rakan Gill OTR/L at 05/17/2024 2:22 PM EDT Associated attestation - Rakan Gill OTR/Ruby - 05/17/2024 2:22 PM EDT I have reviewed and agree with this note and education documentation for this visit. DISCHARGE PLANNING NOTE Sw rec'd a phone call from [facility], they will be up to do an onsite and will update if they are able to accept. [facility] is waiting to hear back from [facility] regarding billing before they can say if they are able to accept. - TURNER Benz 05/17/24 10:07 AM Problem: Pain Goal: Patient goal is pain score less than 4, able to rest, and participant in treatment plan as appropriate Description: INTERVENTIONS: 1. Encourage patient or legal direct sales representative to report early pain and ask [...] per policy 9. Teach patient or legal direct sales representative interventions for comforting Outcome: Progressing Note: Evaluation of progress towards goal: Pain assessments are completed per policy q4h and prn, patient is using pain scale appropriately, will continue on with plan of care at this time Problem: Safety Goal: Patient will be injury free during hospitalization Description: INTERVENTIONS: 1. Assess patient's risk for falls and implement fall prevention plan of care per policy 2. Provide and maintain a safe environment 3. Proper use of double Identifiers 4. Medication administration using the 5 rights 5. Hand hygiene 6. Specimens are labeled at the bedside 7. Instruct patient/ patient direct sales representative about use of safety devices 8. Include patient/ patient direct sales representative in decisions related to safety Outcome: Progressing Note: Evaluation of progress towards goal: Patient is injury free during shift. Bed is locked and in the lowest position, call light and personal items within reach Problem: Infection Goal: Absence of [...] hygiene technique. 7. Identify and instruct patient/patient direct sales representative in use of appropriate isolation precautions for identified infection/symptoms. 8. Provide and discuss with patient/patient direct sales representative on educational MDRO sheet. 9. Encourage and monitor nutritional status daily and consult flower grower if indicated. 10. Implement neutropenic guidelines as needed. Outcome: Progressing Note: Evaluation of progress towards goal: Patient afebrile at this time. Will continue to monitor temp, CBC and other s/s of infection. Problem: Knowledge Deficit Goal: Patient/patient direct sales representative demonstrates understanding of disease process, treatment plan, medications, and discharge instructions Description: INTERVENTIONS 1. Complete learning assessment and assess knowledge base 2. Provide teaching at level of understanding 3. Provide teaching via preferred learning method(s) Outcome: Progressing Note: Evaluation of progress towards goal: Will continue to educate pt of process, plan and medications DISCHARGE PLANNING NOTE Nishant rec'd a phone call from pt's dtr, she requested referrals to [facility] in [place], [facility] in [place], [facility], [facility] and [facility]. Nishant informed her that [facility] is no longer accepting skilled pt's. Will send referrals to other choices and will follow back up with her. - TURNER Benz 05/16/24 11:44 AM Problem: Hemodynamic Status Goal: Maintains optimal cardiac output and hemodynamic stability Description: Patient's goal is: INTERVENTIONS 1. Assess and monitor patient's heart rate, rhythm, respiratory rate, peripheral pulses, capillary refill, color, body temperature, intake and output 2. Monitor labs and diagnostic testing 3. Observe for signs of chest pain (note location, duration, severity, radiation and associated symptoms such as diaphoresis, nausea, indigestion) 4. Monitor for signs and symptoms of heart failure (i.e. shortness of breath, edema of feet/ankles/legs, rapid irregular heart rate, coughing, wheezing, white/pink blood tinged sputum, sudden weight gain, chest pain) 5. Plan activities to conserve energy 6. Monitor for signs and symptoms of bleeding Outcome: Progressing Note: Evaluation of progress towards goal: Pt verbalizes understanding of need for appropriate lab draws. Problem: Moderate - High Risk Fall Score Description: Lew Fall Score of =/> 25 or indicated by [facility] Assessment Goal: Patient should be free from fall Description: Interventions: 1. [place] to environment 2. Hourly rounds addressing the [...] non-skid footwear 11. Teach patient and patient direct sales representative to maintain environment for safety and [...] (cane, walker) within reach 19. Request patient direct sales representative bring adaptive equipment/mobility aids from home or obtain and provide as needed 20. Consult pharmacy regarding effects of med's affecting mobility, cognition, and alternatives 21. Obtain physician order for PT if risk factors associated with mobility are present 22. Obtain physician order for OT as appropriate 23. Utilize diversional activities 24. Educate patient and patient direct sales representative how to maintain a safe environment during visitation times (notify nurse prior to leaving bedside) 25. Consider appropriateness of medical or non-medical surgical tech 26. Set up voiding schedule as appropriate (every 2 hours) Outcome: Progressing Note: Evaluation of progress towards goal: Pt bed and chair alarm in use, in lowest position and locked, non-slip socks in use, personal items and call light within reach. Problem: Pain Goal: Patient goal is pain score less than 4, able to rest, and participant in treatment plan as appropriate Description: INTERVENTIONS: 1. Encourage patient or legal direct sales representative to report early pain and ask [...] per policy 9. Teach patient or legal direct sales representative interventions for comforting Outcome: Progressing Note: Evaluation of progress towards goal: Pt denies pain needs at this time, pt resting comfortably in bed. Pt encouraged to express pain needs. DISCHARGE PLANNING NOTE Nishant called pt's dtr and explained role. Nishant informed dtr that none of the snf's so far are able to accept. Nishant explained pt's insurance and the [facility] are the biggest barrier but also several facilities do not have beds. Dtr is going to call her sister. Await additional choices. - TURNER Benz 05/16/24 11:38 AM Problem: Pain Goal: Patient goal is pain score less than 4, able to rest, and participant in treatment plan as appropriate Description: INTERVENTIONS: 1. Encourage patient or legal direct sales representative to report early pain and ask [...] per policy 9. Teach patient or legal direct sales representative interventions for comforting Outcome: Progressing Note: Evaluation of progress towards goal: None reported during shift Problem: Safety Goal: Patient will be injury free during hospitalization Description: INTERVENTIONS: 1. Assess patient's risk for falls and implement fall prevention plan of care per policy 2. Provide and maintain a safe environment 3. Proper use of double Identifiers 4. Medication administration using the 5 rights 5. Hand hygiene 6. Specimens are labeled at the bedside 7. Instruct patient/ patient direct sales representative about use of safety devices 8. Include patient/ patient direct sales representative in decisions related to safety Outcome: Progressing Note: Evaluation of progress towards goal: Maintained Problem: Infection Goal: Absence of infection during [...] hygiene technique. 7. Identify and instruct patient/patient direct sales representative in use of appropriate isolation precautions for identified infection/symptoms. 8. Provide and discuss with patient/patient direct sales representative on educational MDRO sheet. 9. Encourage and monitor nutritional status daily and consult flower grower if indicated. 10. Implement neutropenic guidelines as needed. Outcome: Progressing Note: Evaluation of progress towards goal: Maintained Problem: Knowledge Deficit Goal: Patient/patient direct sales representative demonstrates understanding of disease process, treatment plan, medications, and discharge instructions Description: INTERVENTIONS 1. Complete learning assessment and assess knowledge base 2. Provide teaching at level of understanding 3. Provide teaching via preferred learning method(s) Outcome: Progressing Note: Evaluation of progress towards goal: Maintained Problem: Discharge Planning Goal: Discharge to post-acute [...] Progressing Note: Evaluation of progress towards goal: Pending SNF that will accept [facility] Problem: Moderate - High Risk Fall Score Description: Lew Fall Score of =/> 25 or indicated by [facility] Assessment Goal: Patient should be free from fall Description: Interventions: 1. [place] to environment 2. Hourly rounds addressing the [...] non-skid footwear 11. Teach patient and patient direct sales representative to maintain environment for safety and [...] (cane, walker) within reach 19. Request patient direct sales representative bring adaptive equipment/mobility aids from home or obtain and provide as needed 20. Consult pharmacy regarding effects of med's affecting mobility, cognition, and alternatives 21. Obtain physician order for PT if risk factors associated with mobility are present 22. Obtain physician order for OT as appropriate 23. Utilize diversional activities 24. Educate patient and patient direct sales representative how to maintain a safe environment during visitation times (notify nurse prior to leaving bedside) 25. Consider appropriateness of medical or non-medical surgical tech 26. Set up voiding schedule as appropriate (every 2 hours) Outcome: Progressing Note: Evaluation of progress towards goal: Maintained Problem: Hemodynamic Status Goal: Maintains optimal cardiac output and hemodynamic stability Description: Patient's goal is: INTERVENTIONS 1. Assess and monitor patient's heart rate, rhythm, respiratory rate, peripheral pulses, capillary refill, color, body temperature, intake and output 2. Monitor labs and diagnostic testing 3. Observe for signs of chest pain (note location, duration, severity, radiation and associated symptoms such as diaphoresis, nausea, indigestion) 4. Monitor for signs and symptoms of heart failure (i.e. shortness of breath, edema of feet/ankles/legs, rapid irregular heart rate, coughing, wheezing, white/pink blood tinged sputum, sudden weight gain, chest pain) 5. Plan activities to conserve energy 6. Monitor for signs and symptoms of bleeding Outcome: Progressing Note: Evaluation of progress towards goal: Maintained Problem: Inadequate Coping Goal: Demonstrates and verbalizes ability to cope effectively Description: Patient's goal is: INTERVENTIONS 1. Patient is able to verbalize feelings related to emotional state 2. Encourage verbalization of feelings, perceptions, fears, stressors, loss of loved ones 3. Encourage verbalization of problems out of their control 4. Encourage participation in care and self management 5. Inform patient of all treatment/care prior to providing care 6. Collaborate with pastoral/spiritual care, social worker health services, mental health counselor as needed. 7. Instruct patient on diversional activities such as physical activity, distraction, and deep breathing exercises to assist with coping 8. Involve patient's direct sales representative in care Outcome: Progressing Note: Evaluation of progress towards goal: Maintained Problem: Activity Intolerance/Impaired Mobility Goal: Mobility/activity is maintained at optimum level for patient Description: Patient's goal is: INTERVENTIONS 1. Assess and monitor patient barriers to mobility and need for assistive/adaptive devices 2. Assess patient's emotional response to limitations 3. Collaborate with interdisciplinary teams and initiate plans and interventions as ordered 4. Encourage independent activity per tolerance 5. Maintain proper body alignment 6. Perform active/passive ROM as tolerated/ordered 7. Coordinate activities to conserve energy 8. Reposition patient 9. Ensure adequate rest/sleep time Outcome: Progressing Note: Evaluation of progress towards goal: Maintained Problem: Potential for Compromised Skin Integrity Goal: [...] Progressing Note: Evaluation of progress towards goal: Maintained Problem: Urinary Incontinence Goal: Perineal skin integrity [...] Progressing Note: Evaluation of progress towards goal: Maintained Problem: Pain Goal: Patient goal is pain score less than 4, able to rest, and participant in treatment plan as appropriate Description: INTERVENTIONS: 1. Encourage patient or legal direct sales representative to report early pain and ask [...] per policy 9. Teach patient or legal direct sales representative interventions for comforting Outcome: Progressing Note: Evaluation of progress towards goal: Pt states current pain regimen relieves pain. Prn meds available. Pt encouraged to express needs for pain medication on a scale of 0-10. Vitals signs being monitored per policy. rn will check pain scale Q4H. Will continue to monitor for pain until end of hospital stay. Problem: Safety Goal: Patient will be injury free during hospitalization Description: INTERVENTIONS: 1. Assess patient's risk for falls and implement fall prevention plan of care per policy 2. Provide and maintain a safe environment 3. Proper use of double Identifiers 4. Medication administration using the 5 rights 5. Hand hygiene 6. Specimens are labeled at the bedside 7. Instruct patient/ patient direct sales representative about use of safety devices 8. Include patient/ patient direct sales representative in decisions related to safety Outcome: Progressing Note: Evaluation of progress towards goal: Pt remains free from falls and injuries since beginning of shift. Call light within reach. Bed rails up x3. Orientation reviewed. Hourly rounded maintained. Will continue to maintain safety until end of hospital stay. Problem: Knowledge Deficit Goal: Patient/patient direct sales representative demonstrates understanding of disease process, treatment plan, medications, and discharge instructions Description: INTERVENTIONS 1. Complete learning assessment and assess knowledge base 2. Provide teaching at level of understanding 3. Provide teaching via preferred learning method(s) Outcome: Progressing Note: Evaluation of progress towards goal: Plan of care discussed with patient, patient states understanding of plan of care, patient asks appropriate questions regarding care. DISCHARGE PLANNING NOTE Sw rec'd a phone call from [facility], they are unable to accept a [facility]. - TURNER Benz 05/15/24 3:52 PM DISCHARGE PLANNING NOTE Nishant called pt's dtr and informed her that none of the snf's she chose are able to accept. Nishant explained does have a call out to [facility] but not sure they will have a bed. Nishant explained that [facility] offered their sister facilities as options, [facility] or [facility]. Dtr agreeable to referrals being sent to both of these facilities. Referrals sent . Nishant to follow. - TURNER Benz 05/15/24 3:52 PM Occupational Therapy Treatment Discharge Recommendations OT Recommendations : [facility] SNF/ECF Comments: Pt appropriate for SNF stay to increase strength, endurance, and balance to allow for reduced fall risk prior to safe D/C home 6 Clicks: Daily Activity Putting on and taking off regular lower body clothing?: A lot Bathing (including washing, rinsing, drying)?: A lot Toileting, which includes using toilet, bedpan or urinal?: A little Putting on and taking off regular upper body clothing?: A little Taking care of personal grooming such as brushing teeth?: A little Eating meals?: None Scoring Daily Activity Raw Score: 17 CMS G Code Modifier: CK 05/15/24 1015 UE ROM UE ROM exercises performed? Yes Scapular retraction x Shoulder flexion/extension x Shoulder horizontal abduction/adduction x Elbow flexion/extension x Other BUE AROM - seated with cues for tech and to remain on task Repetitions 15 OT Treatment/Interventions: ADL retraining, Functional transfer training, UE strengthening/ROM, Endurance training, Cognitive reorientation, Patient/family training, Equipment eval/education, Balance, Compensatory technique education, Functional activities OT Frequency: 4-5days/week OT Duration: LOS Assessment Patient Assessment Therapy Problem List: Decreased ADL status, Decreased balance, Decreased cognition, Decreased endurance, Decreased high-level ADLs, Decreased mobility, Decreased safe judgement during ADL, Decreased self-care trans, Decreased UE ROM, Decreased UE strength Patient Response to Treatment: Progressing toward goals Mood/Affect: Appropriate for circumstances Rehab Prognosis: Good, With continued OT status post acute discharge Visit RN Communication: Yes Medical Record Reviewed: Yes OT Type of Visit: Treatment Precautions Activity: ok to tx per RN Equipment: Gait belt, RW, chair alarm Pacemaker/ICD: Pacemaker Telemetry/Top Flavor Attendant: Yes Other Cardiac Monitoring Devices: Cardiac Life Vest Oxygen Used: room air Other: High fall risk, h/o falls, CIWA protocol, delirium/dementia precautions, 1500mL fluid restriction, bed/chair alarm Pain Assessment Pain Assessment: No/denies pain ADL / IADL Hand Dominance: Left Where Assessed: Chair UE Dressing Assistance: Contact guard assist UE Dressing Deficit: Pull around back Other: pt donned gown around back with CGA for safety and to bring around back. pt stating to have completed simple grooming tasks prior to tx Home Management - IADL Other: pt donned gown around back with CGA for safety and to bring around back. pt stating to have completed simple grooming tasks prior to tx Hearing / Speech / Vision Hearing: Within Functional Limits Speech: Within Functional Limits Current Vision: Wears glasses all the time Cognition Overall Cognitive Status: Exceptions to Within Functional Limits Arousal/Alertness: Appropriate responses to stimuli Attention Span: Attends with cues to redirect Following Commands: Follows one step commands with increased time, Follows one step commands with repetition Safety Judgment: Decreased awareness of need for assistance, Decreased awareness of need for safety Awareness of Errors: Decreased awareness of errors Insight of Deficits: Decreased awareness of deficits Problem Solving: Reduced Interfering Components: Processing speed, Working memory Other: pt with intermittent confusion and repetative when speaking at times. pleasant and cooperative throughout Bed Mobility Other: NT - pt up in recliner upon arrival and at end of session with call light in reach and nurse notified Transfers Sit to Stand: Contact guard assist Stand to Sit: Contact guard assist Other: pt completed sit<>stand with use of RW for BUE support and CGA for safety. increased cueing for proper hand placement and safety. slight unsteadiness noted but no LOB Gait Gait Assistance: Contact guard assist Assistive Device: Rolling walker Gait Distance: 70' x 3 Other: pt ambulated within [place] this date with use of RW for BUE support and CGA for safety and stability. pt tends to veer right and left and take hands off of walker causing unsteadiness at times. no LOB. pt needing extended seated and standing rest breaks between distances. Balance Sitting Balance: Static: Good Sitting Balance: Dynamic: Good Standing Balance: Static: Fair Standing Balance: Dynamic: Fair Other: use of RW for BUE support during amb and transfers with slight unsteadiness but no LOB Activity Tolerance Endurance: Tolerates >30 minutes activity with rest breaks Other: pt limited d/t weakness and fatigue. increased time and effort to complete activity with rest breaks as needed Plan Occupational Therapy Care Plan Occupational Therapy Care Plan (Active) Template: OT - Occupational Therapy Problem: Activity Tolerance Dates: Start: 05/11/24 Disciplines: OT Goal: Tolerate > 30 minutes of activity WITH rest breaks Dates: Start: 05/11/24 Expected End: 06/01/24 Description: Goal Description: Disciplines: OT Outcomes Date/Time User Outcome 05/15/24 1153 JESSIE Agosto Progressing 05/13/24 1453 JESSIE Campbell Progressing Goal Note filed on 05/13/24 1453 by JESSIE Campbell Evaluation of progress towards goal: Problem: Bed Mobility Dates: Start: 05/11/24 Disciplines: OT Goal: Patient will perform bed mobility with Modified [place] Dates: Start: 05/11/24 Expected End: 06/01/24 Description: Goal Description: Disciplines: OT Problem: Functional Mobility Dates: Start: 05/11/24 Disciplines: OT Goal: Patient will perform functional mobility with Modified [place] Dates: Start: 05/11/24 Expected End: 06/01/24 Description: Goal Description: Disciplines: OT Outcomes Date/Time User Outcome 05/15/24 1153 Nicole Camarillo JASSO/L Progressing 05/13/24 1453 JESSIE Campbell Progressing Goal Note filed on 05/13/24 145 by JESSIE Campbell Evaluation of progress towards goal: Problem: Other (Customize) Dates: Start: 05/11/24 Disciplines: OT Goal: Improve Dates: Start: 05/11/24 Expected End: 06/01/24 Description: Pt will participate in BADL routine at Mod I level, using AD and compensatory strategies as needed. Disciplines: OT Outcomes Date/Time User Outcome 05/15/24 1153 SHEYLA AgostoA/L Progressing 05/13/24 1453 LOUISA Campbell/Ruby Progressing Goal Note filed on 05/13/24 1453 by JESSIE Campbell Evaluation of progress towards goal: Problem: Sitting Balance Dates: Start: 05/11/24 Disciplines: OT Goal: Improve balance to good Dates: Start: 05/11/24 Expected End: 06/01/24 Description: Static Dynamic Disciplines: OT Outcomes Date/Time User Outcome 05/15/24 1153 SHEYLA AgostoA/Ruby Progressing 05/13/24 1453 JESSIE Campbell Progressing Goal Note filed on 05/13/24 1453 by JESSIE Campbell Evaluation of progress towards goal: Problem: Standing Balance Dates: Start: 05/11/24 Disciplines: OT Goal: Improve balance to good Dates: Start: 05/11/24 Expected End: 06/01/24 Description: Static Dynamic Disciplines: OT Outcomes Date/Time User Outcome 05/15/24 1153 Nicole Camarillo JASSO/L Progressing 05/13/24 1453 JESSIE Campbell Progressing Goal Note filed on 05/13/24 1453 by JESSIE Campbell Evaluation of progress towards goal: Problem: Strength Dates: Start: 05/11/24 Disciplines: OT Goal: Improve strength Dates: Start: 05/11/24 Expected End: 06/01/24 Description: Of extremity/ location: BUE to 5/5 To facilitate: increased overall strength and activity tolerance for ADL/transfers. Disciplines: OT Outcomes Date/Time User Outcome 05/15/24 1153 LOUISA Agosto/Ruby Progressing 05/13/24 1453 JESSIE Campbell Progressing Goal Note filed on 05/13/24 1453 by JESSIE Campbell Evaluation of progress towards goal: Problem: Toilet Transfers Dates: Start: 05/11/24 Disciplines: OT Goal: Patient will perform toilet transfers with Modified [place] Dates: Start: 05/11/24 Expected End: 06/01/24 Description: Goal Description: Disciplines: OT Outcomes Date/Time User Outcome 05/13/24 1453 JESSIE Campbell Progressing Goal Note filed on 05/13/24 1453 by JESSIE Campbell Evaluation of progress towards goal: Problem: Transfers Dates: Start: 05/11/24 Disciplines: OT Goal: Patient will perform transfers with Modified [place] Dates: Start: 05/11/24 Expected End: 06/01/24 Description: Goal Description: Disciplines: OT Outcomes Date/Time User Outcome 05/15/24 1153 LOUISA Agosto/Ruby Progressing 05/13/24 1453 JESSIE Campbell Progressing Goal Note filed on 05/13/24 1453 by JESSIE Campbell Evaluation of progress towards goal: Occupational Therapy Care Plan (Resolved) There are no resolved problems. Principal Problem: CHB (complete heart block) ([facility]) Active Problems: HTN (hypertension) ST elevation myocardial infarction (STEMI) ([facility]) Coronary artery disease involving [place] coronary artery of [place] heart Mixed hyperlipidemia Cosigned by PRIYA Mcneil/Ruby at 05/15/2024 2:14 PM EDT Associated attestation - Merissa Felipe OTR/L - 05/15/2024 2:14 PM EDT I have reviewed and agree with this note and education documentation for this visit. Physical Therapy Treatment Discharge Recommendations PT Recommendations: [facility] SNF/ECF Comments: Pt appropriate for SNF stay to increase strength, endurance, and balance to allow for reduced fall risk prior to safe D/C home 6 Clicks: Basic Mobility Turning from your [...] Score: 18 CMS G Code Modifier: CK PT Treatment/Interventions: LE strengthening/ROM, Endurance training, Gait training, Bed mobility, UE strengthening/ROM PT Frequency: 4-5days/week PT Duration: LOS Patient Response to Treatment: Progressing toward goals Assessment Patient Assessment Therapy Problem List: Decreased balance, Decreased endurance, Decreased gross motor, Decreased mobility, Decreased LE strength, Decreased ADL status, Decreased UE strength Patient Response to Treatment: Progressing toward goals Mood/Affect: Appropriate for circumstances Rehab Prognosis: Good, With continued PT status post acute discharge Visit RN Communication: Yes Medical Record Reviewed: Yes PT Type of Visit: Treatment Precautions Activity: early mobility: pass. okay to see per RN Equipment: Gait belt, RW, chair alarm Telemetry/Top Flavor Attendant: Yes Other Cardiac Monitoring Devices: Cardiac Life Vest Oxygen Used: room air Other: High fall risk, h/o falls, CIWA protocol, delirium/dementia precautions, 1500mL fluid restriction, bed/chair alarm and telesitter Pain Assessment Pain Assessment: No/denies pain Hearing / Speech / Vision Hearing: Within Functional Limits Speech: Within Functional Limits Current Vision: Wears glasses all the time Cognition Other: Pt with intermittent mild confusion throughout tx- pleasant and cooperative throughout Bed Mobility Other: Pt in chair at start and end of session with call light in reach and all needs met. chair alarm active Transfers Sit to Stand: Contact guard assist Stand to Sit: Contact guard assist Other: Cues for hand placement with good return. STS completed with CGA for safety and BUE support on RW upon completion. no LOB or c/o dizziness Gait Base of Support: Narrow Pattern: Decreased leydi Gait Assistance: Contact guard assist Assistive Device: Rolling walker Gait Distance: 70' x 3 Limiting Factors to Gait: Fatigue, Weakness, Decreased safety Other: Pt ambulated 70' x 3 this session with extended seated rest break and standing rest break completed in between distances. BUE support on RW with slow, but steady leydi. CGA for safety with no LOB, knee buckling or missteps noted during gait Balance Sitting Balance: Static: Good Sitting Balance: Dynamic: Good Standing Balance: Static: Fair Standing Balance: Dynamic: Fair Other: Midline maintained during unsupported sitting in prep for standing and during ther ex. BUE support on RW during standing activity with no LOB throughout session Activity Tolerance Endurance: Tolerates >30 minutes activity with rest breaks Other: Pleasant and cooperative with intermittent mild confusion. Rest breaks taken as needed secondary to fatigue. Limited by weakness and fatigue at this time 05/15/24 0931 LE Seated LE seated exercises performed? Yes Ankle pumps x Long arc quads x Seated marching x Other 15 BLE AROM Plan Physical Therapy Care Plan Physical Therapy Care Plan (Active) Template: PT - Physical Therapy Problem: Activity Tolerance Dates: Start: 05/11/24 Disciplines: PT Goal: Tolerate > 30 minutes of activity WITH rest breaks Dates: Start: 05/11/24 Expected End: 05/31/24 Description: Goal Description: Disciplines: PT Outcomes Date/Time User Outcome 05/15/24 1140 Rashi Mitchell, INTERNATIONAL STUDENT COUNSELOR Progressing 05/13/24 1259 Ivanna Murray PTA Progressing Goal Note filed on 05/15/24 1140 by Rashi Mitchell PTA Evaluation of progress towards goal: Problem: Bed Mobility Dates: Start: 05/11/24 Disciplines: PT Goal: Patient will perform bed mobility with Modified [place] Dates: Start: 05/11/24 Expected End: 05/31/24 Description: Goal Description: with proper BUE placement and sequencing Disciplines: PT Outcomes Date/Time User Outcome 05/13/24 1259 Ivanna Murray PTA Progressing Goal Note filed on 05/14/24 0946 by Hannah Sue, Student INTERNATIONAL STUDENT COUNSELOR Evaluation of progress towards goal: Problem: Gait Dates: Start: 05/11/24 Disciplines: PT Goal: Patient will perform gait with Modified [place] Dates: Start: 05/11/24 Expected End: 05/31/24 Description: With__RW__,__100__feet Goal Description: with proper gait pattern and safety awareness Disciplines: PT Outcomes Date/Time User Outcome 05/15/24 1140 Rashi Mitchell PTA Progressing 05/13/24 1259 Ivanna Murray PTA Progressing Goal Note filed on 05/15/24 1140 by Rashi Mitchell PTA Evaluation of progress towards goal: Problem: Stairs/Curb Dates: Start: 05/11/24 Disciplines: PT Goal: Patient will perform stairs/curb with Modified [place] Dates: Start: 05/11/24 Expected End: 05/31/24 Description: __3___steps,__w/o___hand rails Goal Description: for safer entry into home Disciplines: PT Goal Note filed on 05/14/24 0946 by Hannah Sue, Student INTERNATIONAL STUDENT COUNSELOR Evaluation of progress towards goal: Problem: Standing Balance Dates: Start: 05/11/24 Disciplines: PT Goal: Improve balance to normal Dates: Start: 05/11/24 Expected End: 05/31/24 Description: Static/Dynamic to reduce risk of falls with all functional tasks Disciplines: PT Outcomes Date/Time User Outcome 05/15/24 1140 Rashi Mitchell PTA Progressing 05/14/24 0946 Hannah Sue, Student INTERNATIONAL STUDENT COUNSELOR Progressing 05/13/24 1259 Ivanna Murray PTA Progressing Goal Note filed on 05/15/24 1140 by Rashi Mitchell PTA Evaluation of progress towards goal: Problem: Strength Dates: Start: 05/11/24 Disciplines: PT Goal: Improve strength Dates: Start: 05/11/24 Expected End: 05/31/24 Description: Of extremity/ location: BLE strength to WFL To facilitate: Safer functional mobility tasks Disciplines: PT Outcomes Date/Time User Outcome 05/15/24 1140 Rashi Mitchell PTA Progressing 05/14/24 0946 Hannah Sue, Student INTERNATIONAL STUDENT COUNSELOR Progressing 05/13/24 1259 Ivanna Murray PTA Progressing Goal Note filed on 05/15/24 1140 by Rashi Mitchell PTA Evaluation of progress towards goal: Problem: Transfers Dates: Start: 05/11/24 Disciplines: PT Goal: Patient will perform transfers with Modified [place] Dates: Start: 05/11/24 Expected End: 05/31/24 Description: Goal Description: with proper BUE placement and sequencing Disciplines: PT Outcomes Date/Time User Outcome 05/15/24 1140 Rashi Mitchell PTA Progressing 05/13/24 1259 Ivanna Murray PTA Progressing Goal Note filed on 05/15/24 1140 by Rashi Mitchell PTA Evaluation of progress towards goal: Physical Therapy Care Plan (Resolved) There are no resolved problems. Principal Problem: CHB (complete heart block) ([facility]) Active Problems: HTN (hypertension) ST elevation myocardial infarction (STEMI) ([facility]) Coronary artery disease involving [place] coronary artery of [place] heart Mixed hyperlipidemia Cosigned by Janae Shaffer PT at 05/15/2024 12:37 PM EDT Associated attestation - Janae Shaffer, PT - 05/15/2024 12:37 PM EDT I have reviewed and agree with this note and education documentation for this visit. DISCHARGE PLANNING NOTE Sw called [facility] and they have not reviewed the referral yet however she reports they do not have any available beds. Nishant called pt's dtr and informed her. Dtr provided three more choices, [facility], [facility] and [facility] dtr will review list for more choices. Referrals sent. Nishant to follow. - TURNER Benz 05/15/24 11:52 AM Problem: Safety Goal: Patient will be injury free during hospitalization Description: INTERVENTIONS: 1. Assess patient's risk for falls and implement fall prevention plan of care per policy 2. Provide and maintain a safe environment 3. Proper use of double Identifiers 4. Medication administration using the 5 rights 5. Hand hygiene 6. Specimens are labeled at the bedside 7. Instruct patient/ patient direct sales representative about use of safety devices 8. Include patient/ patient direct sales representative in decisions related to safety Outcome: Progressing Note: The pt's bed is in the lowest position, locked, and bed alarm armed. The pt's room is near the nurses' station. The pt is educated on pressing the nurse call light for assistance. The pt is wearing nonskid socks. Problem: Infection Goal: Absence of infection during [...] hygiene technique. 7. Identify and instruct patient/patient direct sales representative in use of appropriate isolation precautions for identified infection/symptoms. 8. Provide and discuss with patient/patient direct sales representative on educational MDRO sheet. 9. Encourage and monitor nutritional status daily and consult flower grower if indicated. 10. Implement neutropenic guidelines as needed. Outcome: Progressing Note: The pt is monitored for s/s of infection. The pt's oral temperature is taken q4 with VS. The pt is on continuous cardiac monitoring. Problem: Discharge Planning Goal: Discharge to post-acute [...] discharge transportation as appropriate Outcome: Progressing Note: The pt is to be discharged to a SNF Problem: Pain Goal: Patient goal is pain score less than 4, able to rest, and participant in treatment plan as appropriate Description: INTERVENTIONS: 1. Encourage patient or legal direct sales representative to report early pain and ask [...] per policy 9. Teach patient or legal direct sales representative interventions for comforting Outcome: Progressing Note: Evaluation of progress towards goal: Pain assessments completed and PRN medications available; will continue to monitor. Problem: Safety Goal: [...] at the bedside 7. Instruct patient/ patient direct sales representative about use of safety devices 8. Include patient/ patient direct sales representative in decisions related to safety Outcome: Progressing Note: Evaluation of progress towards goal: Patient safety maintained. Problem: Infection Goal: Absence of infection during [...] hygiene technique. 7. Identify and instruct patient/patient direct sales representative in use of appropriate isolation precautions for identified infection/symptoms. 8. Provide and discuss with patient/patient direct sales representative on educational MDRO sheet. 9. Encourage and monitor nutritional status daily and consult flower grower if indicated. 10. Implement neutropenic guidelines as needed. Outcome: Progressing Note: Evaluation of progress towards goal: Monitoring labs and vital signs; patient remains afebrile. Problem: Knowledge Deficit Goal: Patient/patient direct sales representative demonstrates understanding of disease process, treatment plan, medications, and discharge instructions Description: INTERVENTIONS 1. Complete learning assessment and assess knowledge base 2. Provide teaching at level of understanding 3. Provide teaching via preferred learning method(s) Outcome: Progressing Note: Evaluation of progress towards goal: Patient education provided as needed; purpose of medications discussed prior to administration. Problem: Discharge Planning Goal: Discharge to post-acute care, other facility, or home with appropriate resources Description: Patient's goal is: SNF INTERVENTIONS 1. Conduct assessment to determine patient/family [...] Progressing Note: Evaluation of progress towards goal: Waiting for discharge plan. Problem: Pain Goal: Patient goal is pain score less than 4, able to rest, and participant in treatment plan as appropriate Description: INTERVENTIONS: 1. Encourage patient or legal direct sales representative to report early pain and ask [...] per policy 9. Teach patient or legal direct sales representative interventions for comforting Outcome: Progressing Note: Evaluation of progress towards goal: Pt states current pain regimen relieves pain. Prn meds available. Pt encouraged to express needs for pain medication on a scale of 0-10. Vitals signs being monitored per policy. rn will check pain scale Q4H. Will continue to monitor for pain until end of hospital stay. Problem: Safety Goal: Patient will be injury free during hospitalization Description: INTERVENTIONS: 1. Assess patient's risk for falls and implement fall prevention plan of care per policy 2. Provide and maintain a safe environment 3. Proper use of double Identifiers 4. Medication administration using the 5 rights 5. Hand hygiene 6. Specimens are labeled at the bedside 7. Instruct patient/ patient direct sales representative about use of safety devices 8. Include patient/ patient direct sales representative in decisions related to safety Outcome: Progressing Note: Evaluation of progress towards goal: Pt remains free from falls and injuries since beginning of shift. Call light within reach. Bed rails up x2. Orientation reviewed. Hourly rounded maintained. Will continue to maintain safety until end of hospital stay. Problem: Knowledge Deficit Goal: Patient/patient direct sales representative demonstrates understanding of disease process, treatment plan, medications, and discharge instructions Description: INTERVENTIONS 1. Complete learning assessment and assess knowledge base 2. Provide teaching at level of understanding 3. Provide teaching via preferred learning method(s) Outcome: Progressing Note: Evaluation of progress towards goal: Patient educated on daily plan of care and current medications. Patient verbalizes understanding and denies any questions at this time. Physical Therapy Treatment Discharge Recommendations PT Recommendations: [facility] Facility Therapy Plan 6 Clicks: Basic Mobility Turning from your [...] Score: 18 CMS G Code Modifier: CK Patient Response to Treatment: Progressing toward goals Assessment Patient Assessment Patient Response to Treatment: Progressing toward goals Visit RN Communication: Yes Medical Record Reviewed: Yes PT Type of Visit: Treatment Precautions Telemetry/Top Flavor Attendant: Yes Pain Assessment Pain Assessment: No/denies pain Bed Mobility Other: Pt up in BR upon arrival to room. Pt left up in chair with chair alarm on and call light in reach at end of treatment. Transfers Sit to Stand: Contact guard assist Stand to Sit: Contact guard assist Other: Cues given for safety and hand placement. Unsteadiness noted throughout treatment. Gait Base of Support: Narrow Pattern: Decreased leydi Gait Assistance: Contact guard assist Assistive Device: Rolling walker Gait Distance: 200 feet Limiting Factors to Gait: Fatigue, Weakness, Decreased safety Other: Pt ambulates with slow unsteady leydi. Pt veering to the L running into the wall at times with RW. Cues given for RW safety. Good tolreance noted. Balance Sitting Balance: Static: Good Sitting Balance: Dynamic: Good Standing Balance: Static: Fair Standing Balance: Dynamic: Fair (with UE support) Activity Tolerance Endurance: Tolerates <30 minutes activity WITHOUT vital sign changes Plan Physical Therapy Care Plan Physical Therapy Care Plan (Active) Template: PT - Physical Therapy Problem: Activity Tolerance Dates: Start: 05/11/24 Disciplines: PT Goal: Tolerate > 30 minutes of activity WITH rest breaks Dates: Start: 05/11/24 Expected End: 05/31/24 Description: Goal Description: Disciplines: PT Outcomes Date/Time User Outcome 05/13/24 1259 Ivanna Terri, INTERNATIONAL STUDENT COUNSELOR Progressing Problem: Bed Mobility Dates: Start: 05/11/24 Disciplines: PT Goal: Patient will perform bed mobility with Modified [place] Dates: Start: 05/11/24 Expected End: 05/31/24 Description: Goal Description: with proper BUE placement and sequencing Disciplines: PT Outcomes Date/Time User Outcome 05/13/24 1259 Ivanna Hitchcock, INTERNATIONAL STUDENT COUNSELOR Progressing Problem: Gait Dates: Start: 05/11/24 Disciplines: PT Goal: Patient will perform gait with Modified [place] Dates: Start: 05/11/24 Expected End: 05/31/24 Description: With__RW__,__100__feet Goal Description: with proper gait pattern and safety awareness Disciplines: PT Outcomes Date/Time User Outcome 05/13/24 1259 Ivanna Hitchcock, INTERNATIONAL STUDENT COUNSELOR Progressing Problem: Stairs/Curb Dates: Start: 05/11/24 Disciplines: PT Goal: Patient will perform stairs/curb with Modified [place] Dates: Start: 05/11/24 Expected End: 05/31/24 Description: __3___steps,__w/o___hand rails Goal Description: for safer entry into home Disciplines: PT Problem: Standing Balance Dates: Start: 05/11/24 Disciplines: PT Goal: Improve balance to normal Dates: Start: 05/11/24 Expected End: 05/31/24 Description: Static/Dynamic to reduce risk of falls with all functional tasks Disciplines: PT Outcomes Date/Time User Outcome 05/13/24 1259 Ivanna Murray PTA Progressing Problem: Strength Dates: Start: 05/11/24 Disciplines: PT Goal: Improve strength Dates: Start: 05/11/24 Expected End: 05/31/24 Description: Of extremity/ location: BLE strength to WFL To facilitate: Safer functional mobility tasks Disciplines: PT Outcomes Date/Time User Outcome 05/13/24 1259 Ivanna Murray PTA Progressing Problem: Transfers Dates: Start: 05/11/24 Disciplines: PT Goal: Patient will perform transfers with Modified [place] Dates: Start: 05/11/24 Expected End: 05/31/24 Description: Goal Description: with proper BUE placement and sequencing Disciplines: PT Outcomes Date/Time User Outcome 05/13/24 1259 Ivanna Murray PTA Progressing Physical Therapy Care Plan (Resolved) There are no resolved problems. Principal Problem: CHB (complete heart block) ([facility]) Active Problems: HTN (hypertension) ST elevation myocardial infarction (STEMI) ([facility]) Coronary artery disease involving [place] coronary artery of [place] heart Mixed hyperlipidemia Cosigned by Janae Shaffer PT at 05/13/2024 1:57 PM EDT Associated attestation - Janae Shaffer PT - 05/13/2024 1:57 PM EDT I have reviewed and agree with this note and education documentation for this visit. Problem: Pain Goal: Patient goal is pain score less than 4, able to rest, and participant in treatment plan as appropriate Description: INTERVENTIONS: 1. Encourage patient or legal direct sales representative to report early pain and ask [...] per policy 9. Teach patient or legal direct sales representative interventions for comforting Outcome: Progressing Note: Evaluation of progress towards goal: Pt has had no c/o pain Problem: Knowledge Deficit Goal: Patient/patient direct sales representative demonstrates understanding of disease process, treatment plan, medications, and discharge instructions Description: INTERVENTIONS 1. Complete learning assessment and assess knowledge base 2. Provide teaching at level of understanding 3. Provide teaching via preferred learning method(s) Outcome: Progressing Note: Evaluation of progress towards goal: Patient and family updated on current plan of care Problem: Discharge Planning Goal: Discharge to post-acute [...] Arrange for needed discharge transportation as appropriate Note: Evaluation of progress towards goal: PT/OT rec SNF for discharge Occupational Therapy Treatment Discharge Recommendations OT Recommendations : [facility] Facility 6 Clicks: Daily Activity Putting on and taking off regular lower body clothing?: A lot Bathing (including washing, rinsing, drying)?: A lot Toileting, which includes using toilet, bedpan or urinal?: A little Putting on and taking off regular upper body clothing?: A little Taking care of personal grooming such as brushing teeth?: A little Eating meals?: None Scoring Daily Activity Raw Score: 17 CMS G Code Modifier: CK OT Treatment/Interventions: ADL retraining, Functional transfer training, UE strengthening/ROM, Endurance training, Cognitive reorientation, Patient/family training, Equipment eval/education, Balance, Bed mobility, Compensatory technique education, Functional activities OT Frequency: 4-5days/week OT Duration: LOS Assessment Patient Assessment Therapy Problem List: Decreased balance, Decreased endurance, Decreased gross motor, Decreased mobility, Decreased LE strength, Decreased ADL status, Decreased UE strength Patient Response to Treatment: Progressing toward goals Mood/Affect: Appropriate for circumstances Rehab Prognosis: Good, With continued OT status post acute discharge Visit RN Communication: Yes Medical Record Reviewed: Yes OT Type of Visit: Treatment Precautions Activity: early mobility: pass. okay to see per RN Equipment: Gait belt, RW, chair alarm Telemetry/Top Flavor Attendant: Yes Other: High fall risk, h/o falls, CIWA protocol, delirium/dementia precautions, 1500mL fluid restriction, bed/chair alarm and telesitter Pain Assessment Pain Assessment: No/denies pain ADL / IADL Hand Dominance: Left Where Assessed: Standing at sink, At toilet Grooming Assistance: Contact guard assist Grooming Deficit: Wash/dry hands, Wash/dry face, Brushing hair, Oral hygiene UE Dressing Assistance: Contact guard assist LE Dressing Assistance: Contact guard assist Other: pt completed grooming tasks and UBD while standing at the sink. CGA required for safety while standing. LBD completed while seated on the toilet, CGA required for safety while standing to don to waist. no LOB noted during ADLs. cues required for safety as pt is slightly impulsive and demos confusion. Home Management - IADL Other: pt completed grooming tasks and UBD while standing at the sink. CGA required for safety while standing. LBD completed while seated on the toilet, CGA required for safety while standing to don to waist. no LOB noted during ADLs. cues required for safety as pt is slightly impulsive and demos confusion. Cognition Orientation Level: Oriented to person, Oriented to situation, Disoriented to place, Disoriented to month, Disoriented to age Other: mild confusion noted Bed Mobility Other: NT as pt was ambulating within the room with NA present upon writers arrival and was left in the chair at end of session with call light garry dawkins and with RN aware. chair alarm on. family present. Transfers Sit to Stand: Contact guard assist Stand to Sit: Contact guard assist Toilet Transfers: Contact guard assist Other: cues required for safe hand placement. CGA provided for safety. no LOB noted upon standing. Gait Gait Assistance: Contact guard assist Assistive Device: Rolling walker Gait Distance: 200ft Limiting Factors to Gait: Weakness, Fatigue Other: CGA required for safety. cues required for obstacle negoitiation and overall safety. no LOB noted. Balance Sitting Balance: Static: Good Sitting Balance: Dynamic: Good Standing Balance: Static: Fair Standing Balance: Dynamic: Fair Other: pt stood during ADLs for approx 5-6 mins with CGA required. pt requires B UE support from RW with functional mobility and with CGA provided. no LOB noted throughout session. Activity Tolerance Endurance: Tolerates <30 minutes activity WITHOUT vital sign changes Other: fair overall tolerance. pt is limited by weakness, fatigue, and decreased cognition. 05/13/24 1105 UE ROM UE ROM exercises performed? Yes Scapular retraction x Shoulder flexion/extension x Shoulder horizontal abduction/adduction x Other B UE AROM Repetitions x15 Plan Occupational Therapy Care Plan Occupational Therapy Care Plan (Active) Template: OT - Occupational Therapy Problem: Activity Tolerance Dates: Start: 05/11/24 Disciplines: OT Goal: Tolerate > 30 minutes of activity WITH rest breaks Dates: Start: 05/11/24 Expected End: 06/01/24 Description: Goal Description: Disciplines: OT Outcomes Date/Time User Outcome 05/13/24 3269 JESSIE Campbell Progressing Goal Note filed on 05/13/24 1453 by JESSIE Campbell Evaluation of progress towards goal: Problem: Bed Mobility Dates: Start: 05/11/24 Disciplines: OT Goal: Patient will perform bed mobility with Modified [place] Dates: Start: 05/11/24 Expected End: 06/01/24 Description: Goal Description: Disciplines: OT Problem: Functional Mobility Dates: Start: 05/11/24 Disciplines: OT Goal: Patient will perform functional mobility with Modified [place] Dates: Start: 05/11/24 Expected End: 06/01/24 Description: Goal Description: Disciplines: OT Outcomes Date/Time User Outcome 05/13/241452 JESSIE Campbell Progressing Goal Note filed on 05/13/24 145 by JESSIE Campbell Evaluation of progress towards goal: Problem: Other (Customize) Dates: Start: 05/11/24 Disciplines: OT Goal: Improve Dates: Start: 05/11/24 Expected End: 06/01/24 Description: Pt will participate in BADL routine at Mod I level, using AD and compensatory strategies as needed. Disciplines: OT Outcomes Date/Time User Outcome 05/13/241452 JESSIE Campbell Progressing Goal Note filed on 05/13/24 145 by JESSIE Campbell Evaluation of progress towards goal: Problem: Sitting Balance Dates: Start: 05/11/24 Disciplines: OT Goal: Improve balance to good Dates: Start: 05/11/24 Expected End: 06/01/24 Description: Static Dynamic Disciplines: OT Outcomes Date/Time User Outcome 05/13/241452 JESSIE Campbell Progressing Goal Note filed on 05/13/24 1453 by JESSIE Campbell Evaluation of progress towards goal: Problem: Standing Balance Dates: Start: 05/11/24 Disciplines: OT Goal: Improve balance to good Dates: Start: 05/11/24 Expected End: 06/01/24 Description: Static Dynamic Disciplines: OT Outcomes Date/Time User Outcome 05/13/24 145 JESSIE Campbell Progressing Goal Note filed on 05/13/24 145 by JESSIE Campbell Evaluation of progress towards goal: Problem: Strength Dates: Start: 05/11/24 Disciplines: OT Goal: Improve strength Dates: Start: 05/11/24 Expected End: 06/01/24 Description: Of extremity/ location: BUE to 5/5 To facilitate: increased overall strength and activity tolerance for ADL/transfers. Disciplines: OT Outcomes Date/Time User Outcome 05/13/241452 JESSIE Campbell Progressing Goal Note filed on 05/13/24 145 by JESSIE Campbell Evaluation of progress towards goal: Problem: Toilet Transfers Dates: Start: 05/11/24 Disciplines: OT Goal: Patient will perform toilet transfers with Modified [place] Dates: Start: 05/11/24 Expected End: 06/01/24 Description: Goal Description: Disciplines: OT Outcomes Date/Time User Outcome 05/13/24 1453 JESSIE Campbell Progressing Goal Note filed on 05/13/24 1453 by JESSIE Campbell Evaluation of progress towards goal: Problem: Transfers Dates: Start: 05/11/24 Disciplines: OT Goal: Patient will perform transfers with Modified [place] Dates: Start: 05/11/24 Expected End: 06/01/24 Description: Goal Description: Disciplines: OT Outcomes Date/Time User Outcome 05/13/24 1453 JESSIE Campbell Progressing Goal Note filed on 05/13/24 1453 by JESSIE Campbell Evaluation of progress towards goal: Occupational Therapy Care Plan (Resolved) There are no resolved problems. Principal Problem: CHB (complete heart block) ([facility]) Active Problems: HTN (hypertension) ST elevation myocardial infarction (STEMI) ([facility]) Coronary artery disease involving [place] coronary artery of [place] heart Mixed hyperlipidemia Cosigned by PRIYA Hernandez/Ruby at 05/13/2024 3:07 PM EDT Associated attestation - Cinthya Polanco OTR/L - 05/13/2024 3:07 PM EDT I have reviewed and agree with this note and education documentation for this visit. Problem: Pain Goal: Patient goal is pain score less than 4, able to rest, and participant in treatment plan as appropriate Description: INTERVENTIONS: 1. Encourage patient or legal direct sales representative to report early pain and ask [...] per policy 9. Teach patient or legal direct sales representative interventions for comforting Outcome: Progressing Note: Evaluation of progress towards goal: no complaints of pain or discomfort at this time Problem: Safety Goal: Patient will be injury free during hospitalization Description: INTERVENTIONS: 1. Assess patient's risk for falls and implement fall prevention plan of care per policy 2. Provide and maintain a safe environment 3. Proper use of double Identifiers 4. Medication administration using the 5 rights 5. Hand hygiene 6. Specimens are labeled at the bedside 7. Instruct patient/ patient direct sales representative about use of safety devices 8. Include patient/ patient direct sales representative in decisions related to safety Outcome: Progressing Note: Evaluation of progress towards goal: Pt remains free from falls and injuries since beginning of shift. Call light within reach. Bed rails up x3. Orientation reviewed. Bed alarm in place. Hourly rounded maintained. Will continue to maintain safety until end of hospital stay. Problem: Infection Goal: Absence of infection during [...] hygiene technique. 7. Identify and instruct patient/patient direct sales representative in use of appropriate isolation precautions for identified infection/symptoms. 8. Provide and discuss with patient/patient direct sales representative on educational MDRO sheet. 9. Encourage and monitor nutritional status daily and consult flower grower if indicated. 10. Implement neutropenic guidelines as needed. Outcome: Progressing Note: Evaluation of progress towards goal: no signs/symptoms of infection noted Problem: Knowledge Deficit Goal: Patient/patient direct sales representative demonstrates understanding of disease process, treatment plan, medications, and discharge instructions Description: INTERVENTIONS 1. Complete learning assessment and assess knowledge base 2. Provide teaching at level of understanding 3. Provide teaching via preferred learning method(s) Outcome: Progressing Note: Evaluation of progress towards goal: plan of care/medication education provided Problem: Discharge Planning Goal: Discharge to post-acute [...] Evaluation of progress towards goal: plan is for SNF placement Problem: Moderate - High Risk Fall Score Description: Lew Fall Score of =/> 25 or indicated by [facility] Assessment Goal: Patient should be free from fall Description: Interventions: 1. [place] to environment 2. Hourly rounds addressing the [...] non-skid footwear 11. Teach patient and patient direct sales representative to maintain environment for safety and [...] (cane, walker) within reach 19. Request patient direct sales representative bring adaptive equipment/mobility aids from home or obtain and provide as needed 20. Consult pharmacy regarding effects of med's affecting mobility, cognition, and alternatives 21. Obtain physician order for PT if risk factors associated with mobility are present 22. Obtain physician order for OT as appropriate 23. Utilize diversional activities 24. Educate patient and patient direct sales representative how to maintain a safe environment during visitation times (notify nurse prior to leaving bedside) 25. Consider appropriateness of medical or non-medical surgical tech 26. Set up voiding schedule as appropriate (every 2 hours) Outcome: Progressing Note: Evaluation of progress towards goal: Pt remains free from falls and injuries since beginning of shift. Call light within reach. Bed rails up x3. Orientation reviewed. Bed alarm in place. Hourly rounded maintained. Will continue to maintain safety until end of hospital stay. Problem: Anxiety Goal: Anxiety is at manageable level Description: Patient's goal is: INTERVENTIONS 1. Assess and monitor patient's anxiety level 2. Monitor for signs and symptoms of anxiety both physical and emotional (heart palpitations, chest pain, shortness of breath, headaches, nausea, feeling jumpy, restlessness, irritable, apprehensive) 3. Reorient/orient patient to unit/surroundings 4. Explain treatment plan 5. Explain tests/procedures prior to initiation 6. Encourage participation in care 7. Encourage verbalization of concerns/fears 8. Assess coping mechanisms 9. Assist in developing anxiety-reducing skills 10. Administer complimentary therapies 11. Manage patient's environment 12. Limit or eliminate stimulants such as caffeine and nicotine 13. Collaborate with ancillary departments 14. Include patient/patient direct sales representative in decisions related to anxiety Outcome: Progressing Note: Evaluation of progress towards goal: no issues noted Problem: Hemodynamic Status Goal: Maintains optimal cardiac output and hemodynamic stability Description: Patient's goal is: INTERVENTIONS 1. Assess and monitor patient's heart rate, rhythm, respiratory rate, peripheral pulses, capillary refill, color, body temperature, intake and output 2. Monitor labs and diagnostic testing 3. Observe for signs of chest pain (note location, duration, severity, radiation and associated symptoms such as diaphoresis, nausea, indigestion) 4. Monitor for signs and symptoms of heart failure (i.e. shortness of breath, edema of feet/ankles/legs, rapid irregular heart rate, coughing, wheezing, white/pink blood tinged sputum, sudden weight gain, chest pain) 5. Plan activities to conserve energy 6. Monitor for signs and symptoms of bleeding Outcome: Progressing Note: Evaluation of progress towards goal: no issues noted Problem: Activity Intolerance/Impaired Mobility Goal: Mobility/activity is maintained at optimum level for patient Description: Patient's goal is: INTERVENTIONS 1. Assess and monitor patient barriers to mobility and need for assistive/adaptive devices 2. Assess patient's emotional response to limitations 3. Collaborate with interdisciplinary teams and initiate plans and interventions as ordered 4. Encourage independent activity per tolerance 5. Maintain proper body alignment 6. Perform active/passive ROM as tolerated/ordered 7. Coordinate activities to conserve energy 8. Reposition patient 9. Ensure adequate rest/sleep time Outcome: Progressing Note: Evaluation of progress towards goal: slight generalized weakness noted Problem: Nutrition Goal: Patient's nutritional intake is adequate Description: [...] supplement as ordered 13. Collaborate with clinical flower grower 14. Include patient/ patient's direct sales representative in decisions related to nutrition Outcome: Completed Note: Evaluation of progress towards goal: N/A Problem: Potential for Compromised Skin Integrity Goal: [...] supplement as ordered 13. Collaborate with clinical flower grower 14. Include patient/ patient's direct sales representative in decisions related to nutrition Outcome: Completed Note: Evaluation of progress towards goal: N/A Neurology consulted for altered mentation. Suspect acute metabolic encephalopathy, likely multifactorial due to electrolyte derangements, vitamin deficiencies, alcohol use, acute illness. Patient's mentation is back at baseline, encephalopathy resolved with treatment of underlying illness. Continue B12, folate, thiamine supplementation Continue treating metabolic abnormalities/electrolyte derangements Continue delirium precautions Frequently orient the patient to self, place, time, and situation. Avoid narcotics and sedating medications. Patient should try to stay awake during daytime. Open blinds during the day time, and minimize sleep interruption at night. Keep the room quiet and restful. If patient wears prescription glasses or hearing aids, wear them when applicable. It may help to play soft, relaxing music. Use a nightlight to help get around safely at night Neurology consult will sign off Fabio Viveros MD Psychiatry PGY-1 [facility] Department of Neurosciences & Psychiatry DISCHARGE PLANNING NOTE Referral sent to. [facility]/ [facility], [place], [place] (P# ; F# ) [facility] [place] (P# ; F# ) DISCHARGE PLANNING NOTE Pt not sure about SNF but agreeable for CN to talk to daughters. Called [place]- only contact to discuss. Discussed PT/OT recommends SNF. She states family agrees and would like a referral [facility]. Also sent list to daughter in case additional choices are needed - Cherie Day RN 05/12/24 11:38 AM Received choice from daughter for second choice- [facility] . Tasked also - Cherie Day RN 05/12/24 11:47 AM Problem: Pain Goal: Patient goal is pain score less than 4, able to rest, and participant in treatment plan as appropriate Description: INTERVENTIONS: 1. Encourage patient or legal direct sales representative to report early pain and ask [...] per policy 9. Teach patient or legal direct sales representative interventions for comforting Outcome: Progressing Note: Evaluation of progress towards goal: Pt able to report pain according to 0/10 pain scale. Medicating patient for pain per orders. Problem: Knowledge Deficit Goal: Patient/patient direct sales representative demonstrates understanding of disease process, treatment plan, medications, and discharge instructions Description: INTERVENTIONS 1. Complete learning assessment and assess knowledge base 2. Provide teaching at level of understanding 3. Provide teaching via preferred learning method(s) Outcome: Progressing Note: Evaluation of progress towards goal: POC discussed with patient. Questions answered PRN. DISCHARGE PLANNING NOTE PT/OT recommends snf. Left list for pt. Discussed with pt and staff internist office based only will f/u with pt/family tomorrow. Pt will need acceptance and auth - Cherie Day RN 05/11/24 4:26 PM Physical Therapy Evaluation Discharge Recommendations PT Recommendations: [facility] SNF[facility]ECF Comments: To improve safety awareness and functional independence prior to safe discharge. pt has had multiple falls per EMR and is at a high risk 6 Clicks: Basic Mobility Turning from your [...] little Climbing 3-5 steps with a railing?: Total Scoring 6 Clicks: Basic Mobility Raw Score: 16 CMS G Code Modifier: CK Therapy Plan Need for skilled Physical Therapy to address deficits in functional mobility due to a status decline resulting from recent admit on 05/07/24 from [facility] s/p fall; pt c/o chest pain, dizziness and lightheadedness. No LOC. Pt with several episodes of unresponsiveness; some compressions needed. Flight to [facility] CICU. EKG: STEMI. 05/07 cardiac cath lab technologist: GARETT to LAD 05/08 Trop peak 51,668 05/09 cardiac cath lab technologist: PCI of OM 05/10 Neuro consulted: hallucinations, memory loss likely due to metabolic encephalopathy. CT brain (-) EEG: normal. Possible Echo, life vest prior to discharge. CIWA protocol, delirium precautions. 05/11 Hgb 11.0 Past Medical History: Diagnosis Date Asthma Asthma Back pain Cervical disc disorder CHB (complete heart block) (CMS-HCC) 05/07/2024 HTN (hypertension) Hx of scabies Low back pain Lumbosacral disc disease Neck pain Osteoarthritis TMJ (temporomandibular joint syndrome) Past Surgical History: Procedure Laterality Date Cardiac Invasive N/A 05/09/2024 Performed by Gilberto Zepeda MD at [facility] Cardiac Invasive-cors N/A 05/07/2024 Performed by Gilberto Zepeda MD at [facility] SECTION SECTION 1980,,, INJECTION MEDIAL BRANCH NERVE BLOCK: left C34 45 56 Left 03/16/2018 Performed by Manav Rosario MD at [facility] INJECTION MEDIAL BRANCH NERVE BLOCK: left c34 45 56 Left 02/12/2018 Performed by Manav Rosario MD at [facility] INJECTION MEDIAL BRANCH NERVE BLOCK: right C34 45 56 Right 09/14/2018 Performed by Manav Rosario MD at [facility] INJECTION MEDIAL BRANCH NERVE BLOCK: right C34 45 56mbb Right 07/23/2018 Performed by Manav Rosario MD at [facility] Insert/replace temporary single lead pacemaker N/A 05/07/2024 Performed by Gilberto Zepeda MD at [facility] Intravascular ultrasound initial vessel N/A 05/07/2024 Performed by Gilberto Zepeda MD at [facility] ORTHOPEDIC SURGERY Percutaneous coronary intervention N/A 05/07/2024 Performed by Gilberto Zepeda MD at [facility] Percutaneous coronary intervention of OM N/A 05/09/2024 Performed by Gilberto Zepeda MD at [facility] RADIO FREQUENCY ABLATION Right C 3/4, 4/5, 5/6 Right 11/15/2019 Performed by Manav Rosario MD at [facility] RADIO FREQUENCY ABLATION: left C34 45 56rfa Left 04/30/2018 Performed by Manav Rosario MD at [facility] RADIOFREQUENCY ABLATION SPINAL: Right C 4/5 5/6 Left 07/08/2022 Performed by Manav Rosario MD at [facility] RADIOFREQUENCY ABLATION SPINAL: right C 4/5 5/6 Right 07/29/2022 Performed by Manav Rosario MD at [facility] Revascularization/drug eluting stent/ left anterior descending N/A 05/07/2024 Performed by Gilberto Zepeda MD at [facility] ROTATOR CUFF REPAIR Left Stent drug-eluting/ left circumflex N/A 05/09/2024 Performed by Gilberto Zepeda MD at [facility] TONSILLECTOMY 1970 PT Treatment/Interventions: Functional transfer training, LE strengthening/ROM, Endurance training, Patient/family training, Equipment eval/education, Balance, Stair training, Bed mobility, Gait training, Compensatory technique education, Coordination activities, Functional activities PT Frequency: 4-5days/week PT Duration: LOS Patient Response to Treatment: Tolerated evaluation without adverse reaction Assessment Patient Assessment Therapy Problem List: Decreased balance, Decreased endurance, Decreased gross motor, Decreased mobility, Decreased LE strength Patient Response to Treatment: Tolerated evaluation without adverse reaction Mood/Affect: Appropriate for circumstances Rehab Prognosis: Good, With continued PT status post acute discharge Visit RN Communication: Yes Medical Record Reviewed: Yes PT Type of Visit: Evaluation Precautions Activity: early mobility: pass Equipment: Gait belt, RW, hylton catheter, chair alarm, telesitter Telemetry/Top Flavor Attendant: Yes Oxygen Used: 2L on arrival removed for activity with RN aware and kept off post PT eval as pt was stating at 96. RN aware Other: High fall risk, h/o falls, CIWA protocol, delirium/dementia precautions, 1500mL fluid restriction, bed/chair alarm and telesitter Pain Assessment Pain Assessment: No/denies pain Home Living Type of Home: House Home Layout: Two level, Able to live on main level with bedroom/bathroom, Stairs to enter without rails (full bath on the 2nd floor) Stairs to Enter: 3 Hand Rails: None Stairs in Home: FF to 2nd floor waxer Rails in Home: Left Bathroom Shower/Tub: Tub/shower unit Bathroom Toilet: Standard Bathroom Equipment: Grab bars in shower Home Equipment: Quad cane Other : pt was IND without use of AD prior. pt deined any falls but per EMR pt has had multiple falls. Prior Function Lives With: Other (Comment) (Roommate lives on the 2nd floor) Receives Help From: Family (2 local dtr's but both work) Level of Mobility: Independent with ADLs and functional transfers or gait Homemaking Assistance: Independent Vocational: Retired ADL / IADL Hand Dominance: Left Hearing / Speech / Vision Hearing: Within Functional Limits Speech: Within Functional Limits Current Vision: Wears glasses all the time Cognition Overall Cognitive Status: Exceptions to Within Functional Limits Arousal/Alertness: Appropriate responses to stimuli Attention Span: Attends with cues to redirect Memory: Decreased recall of precautions, Decreased recall of recent events, Decreased short term memory Orientation Level: Oriented to person, Oriented to place, Oriented to time, Disoriented to situation, Disoriented to month Following Commands: Follows one step commands with increased time, Follows one step commands with repetition Safety Judgment: Decreased awareness of need for assistance, Decreased awareness of need for safety Awareness of Errors: Decreased awareness of errors Insight of Deficits: Decreased awareness of deficits Problem Solving: Reduced Interfering Components: Processing speed, Working memory Other: mild confusion noted Sensation Overall Sensation Status: Exceptions to Within Functional Limits (n/t in upper neck/back) Bed Mobility Supine to Sit: Stand by assist, Right Sit to Supine: (left in recliner with call light, chair alarm and telesitter in place) Other: cues for proper sequencing Transfers Sit to Stand: Min assist Stand to Sit: Min assist Other: assist needed to achieve full standing with reported dizziness with standing with cues for proper BUE placement and sequencing Gait Base of Support: Narrow Pattern: Decreased leydi, R Decreased heel strike, L Decreased heel strike Gait Assistance: Min assist Assistive Device: Rolling walker Gait Distance: 20' Limiting Factors to Gait: Fatigue, Weakness, Other (comment) (dizziness) Other: pt limited d/t dizziness with assist needed for safety and fall prevention with cues for proper gait pattern and sequencing Balance Sitting Balance: Static: Good Sitting Balance: Dynamic: Fair (+f) Standing Balance: Static: Fair Standing Balance: Dynamic: Fair (-) Other: BUE support on RW with all standing tasks RLE Assessment: (grossly: 3+/5) LLE Assessment: (grossly: 3+/5) Activity Tolerance Endurance: Tolerates 30 minutes activity with rest breaks Other: limited d/t weakness, fatigue and dizziness Plan Physical Therapy Care Plan Physical Therapy Care Plan (Active) Template: PT - Physical Therapy Problem: Activity Tolerance Dates: Start: 05/11/24 Disciplines: PT Goal: Tolerate > 30 minutes of activity WITH rest breaks Dates: Start: 05/11/24 Expected End: 05/31/24 Description: Goal Description: Disciplines: PT Problem: Bed Mobility Dates: Start: 05/11/24 Disciplines: PT Goal: Patient will perform bed mobility with Modified [place] Dates: Start: 05/11/24 Expected End: 05/31/24 Description: Goal Description: with proper BUE placement and sequencing Disciplines: PT Problem: Gait Dates: Start: 05/11/24 Disciplines: PT Goal: Patient will perform gait with Modified [place] Dates: Start: 05/11/24 Expected End: 05/31/24 Description: With__RW__,__100__feet Goal Description: with proper gait pattern and safety awareness Disciplines: PT Problem: Stairs/Curb Dates: Start: 05/11/24 Disciplines: PT Goal: Patient will perform stairs/curb with Modified [place] Dates: Start: 05/11/24 Expected End: 05/31/24 Description: __3___steps,__w/o___hand rails Goal Description: for safer entry into home Disciplines: PT Problem: Standing Balance Dates: Start: 05/11/24 Disciplines: PT Goal: Improve balance to normal Dates: Start: 05/11/24 Expected End: 05/31/24 Description: Static/Dynamic to reduce risk of falls with all functional tasks Disciplines: PT Problem: Strength Dates: Start: 05/11/24 Disciplines: PT Goal: Improve strength Dates: Start: 05/11/24 Expected End: 05/31/24 Description: Of extremity/ location: BLE strength to WFL To facilitate: Safer functional mobility tasks Disciplines: PT Problem: Transfers Dates: Start: 05/11/24 Disciplines: PT Goal: Patient will perform transfers with Modified [place] Dates: Start: 05/11/24 Expected End: 05/31/24 Description: Goal Description: with proper BUE placement and sequencing Disciplines: PT Physical Therapy Care Plan (Resolved) There are no resolved problems. Principal Problem: CHB (complete heart block) ([facility]) Active Problems: ST elevation myocardial infarction (STEMI) ([facility]) Coronary artery disease involving [place] coronary artery of [place] heart Problem: Pain Goal: Patient goal is pain score less than 4, able to rest, and participant in treatment plan as appropriate Description: INTERVENTIONS: 1. Encourage patient or legal direct sales representative to report early pain and ask [...] per policy 9. Teach patient or legal direct sales representative interventions for comforting Outcome: Progressing Note: Evaluation of progress towards goal: Pt resting comfortably in chair at this time, denies pain needs. Pt educated on pain medication available and encouraged to express pain needs. Problem: Moderate - High Risk Fall Score Description: Lew Fall Score of =/> 25 or indicated by [facility] Assessment Goal: Patient should be free from fall Description: Interventions: 1. [place] to environment 2. Hourly rounds addressing the [...] non-skid footwear 11. Teach patient and patient direct sales representative to maintain environment for safety and [...] (cane, walker) within reach 19. Request patient direct sales representative bring adaptive equipment/mobility aids from home or obtain and provide as needed 20. Consult pharmacy regarding effects of med's affecting mobility, cognition, and alternatives 21. Obtain physician order for PT if risk factors associated with mobility are present 22. Obtain physician order for OT as appropriate 23. Utilize diversional activities 24. Educate patient and patient direct sales representative how to maintain a safe environment during visitation times (notify nurse prior to leaving bedside) 25. Consider appropriateness of medical or non-medical surgical tech 26. Set up voiding schedule as appropriate (every 2 hours) Outcome: Progressing Note: Evaluation of progress towards goal: Pt will remain free from falls during current admission. Bed and chair locked, bed alarm and chair alarm in use, non-slip socks in use, assistive devices in use, tele-sitter in use, call light and personal belongings within reach. Problem: Hemodynamic Status Goal: Maintains optimal cardiac output and hemodynamic stability Description: Patient's goal is: INTERVENTIONS 1. Assess and monitor patient's heart rate, rhythm, respiratory rate, peripheral pulses, capillary refill, color, body temperature, intake and output 2. Monitor labs and diagnostic testing 3. Observe for signs of chest pain (note location, duration, severity, radiation and associated symptoms such as diaphoresis, nausea, indigestion) 4. Monitor for signs and symptoms of heart failure (i.e. shortness of breath, edema of feet/ankles/legs, rapid irregular heart rate, coughing, wheezing, white/pink blood tinged sputum, sudden weight gain, chest pain) 5. Plan activities to conserve energy 6. Monitor for signs and symptoms of bleeding Outcome: Progressing Note: Evaluation of progress towards goal: Pt verbalizes understanding of need to cardiac monitoring and appropriate lab draws at this time. Occupational Therapy Evaluation Discharge Recommendations OT Recommendations : [facility] SNF[facility]ECF Comments: Due to decline in functional status, recommend continued skilled OT to address safety, ADL and mobility deficits to improve independence and decrease caregiver burden in order to return to OF. 6 Clicks: Daily Activity Putting on and taking off regular lower body clothing?: A lot Bathing (including washing, rinsing, drying)?: A lot Toileting, which includes using toilet, bedpan or urinal?: Total ([place]) Putting on and taking off regular upper body clothing?: A little Taking care of personal grooming such as brushing teeth?: A little Eating meals?: None Scoring Daily Activity Raw Score: 15 CMS G Code Modifier: CK Therapy Plan Need for skilled Occupational Therapy to address deficits in ADL independence and functional mobility due to a status decline resulting from CHB. Pt is a 63 y/o female who initially presented to [facility] ED s/p fall; pt c/o chest pain, dizziness and lightheadedness. No LOC. Pt with several episodes of unresponsiveness; some compressions needed. Flight to [facility] CICU. EKG: STEMI. 05/07 cardiac cath lab technologist: GARETT to LAD 05/08 Trop peak 51,668 05/09 cardiac cath lab technologist: PCI of OM 05/10 Neuro consulted: hallucinations, memory loss likely due to metabolic encephalopathy. CT brain (-) EEG: normal. Possible Echo, life vest prior to discharge. CIWA protocol, delirium precautions. 05/11 Hgb 11.0 Past Medical History: Diagnosis Date Asthma Asthma Back pain Cervical disc disorder CHB (complete heart block) ([facility]) 05/07/2024 HTN (hypertension) Hx of scabies Low back pain Lumbosacral disc disease Neck pain Osteoarthritis TMJ (temporomandibular joint syndrome) Past Surgical History: Procedure Laterality Date Cardiac Invasive N/A 05/09/2024 Performed by Gilberto Zepeda MD at [facility] Cardiac Invasive-cors N/A 05/07/2024 Performed by Gilberto Zepeda MD at [facility] SECTION SECTION 1980,,, INJECTION MEDIAL BRANCH NERVE BLOCK: left C34 45 56 Left 03/16/2018 Performed by Manav Rosario MD at [facility] INJECTION MEDIAL BRANCH NERVE BLOCK: left c34 45 56 Left 02/12/2018 Performed by Manav Rosario MD at [facility] INJECTION MEDIAL BRANCH NERVE BLOCK: right C34 45 56 Right 09/14/2018 Performed by Manav Rosario MD at [facility] INJECTION MEDIAL BRANCH NERVE BLOCK: right C34 45 56mbb Right 07/23/2018 Performed by Manav Rosario MD at [facility] Insert/replace temporary single lead pacemaker N/A 05/07/2024 Performed by Gilberto Zepeda MD at [facility] Intravascular ultrasound initial vessel N/A 05/07/2024 Performed by Gilberto Zepeda MD at [facility] ORTHOPEDIC SURGERY Percutaneous coronary intervention N/A 05/07/2024 Performed by Gilberto Zepeda MD at [facility] Percutaneous coronary intervention of OM N/A 05/09/2024 Performed by Gilberto Zepeda MD at [facility] RADIO FREQUENCY ABLATION Right C 3/4, 4/5, 5/6 Right 11/15/2019 Performed by Manav Rosario MD at [facility] RADIO FREQUENCY ABLATION: left C34 45 56rfa Left 04/30/2018 Performed by Manav Rosario MD at [facility] RADIOFREQUENCY ABLATION SPINAL: Right C 4/5 5/6 Left 07/08/2022 Performed by Manav Rosario MD at [facility] RADIOFREQUENCY ABLATION SPINAL: right C 05/18 5/6 Right 07/29/2022 Performed by Manav Rosario MD at [facility] Revascularization/drug eluting stent/ left anterior descending N/A 05/07/2024 Performed by Gilberto Zepeda MD at [facility] ROTATOR CUFF REPAIR Left Stent drug-eluting/ left circumflex N/A 05/09/2024 Performed by Gilberto Zepeda MD at [facility] TONSILLECTOMY 1970 OT Treatment/Interventions: ADL retraining, Functional transfer training, UE strengthening/ROM, Endurance training, Cognitive reorientation, Patient/family training, Equipment eval/education, Balance, Bed mobility, Compensatory technique education, Functional activities OT Frequency: 4-5days/week OT Duration: LOS Assessment Patient Assessment Therapy Problem List: Decreased ADL status, Decreased balance, Decreased cognition, Decreased endurance, Decreased high-level ADLs, Decreased mobility, Decreased safe judgement during ADL, Decreased self-care trans, Decreased sensation, Decreased UE strength, Decreased LE strength Patient Response to Treatment: Tolerated evaluation without adverse reaction Mood/Affect: Appropriate for circumstances Rehab Prognosis: Good, With continued OT status post acute discharge Visit RN Communication: Yes Medical Record Reviewed: Yes OT Type of Visit: Evaluation Precautions Activity: Early mobility: pass Equipment: Gait belt, RW, hylton catheter, chair alarm, telesitter Telemetry/Top Flavor Attendant: Yes Oxygen Used: Pt initially on 2L; removed for activity and maintained > 90% on room air. Other: High fall risk, h/o falls, CIWA protocol, delirium/dementia precautions, 1500mL fluid restriction Pain Assessment Pain Assessment: No/denies pain Home Living Type of Home: House Home Layout: Two level, Able to live on main level with bedroom/bathroom, Stairs to enter without rails (Bathroom located on 2nd floor) Stairs to Enter: 3 Hand Rails: None Stairs in Home: Flight to 2nd floor waxer Rails in Home: Left Bathroom Shower/Tub: Tub/shower unit Bathroom Toilet: Standard Bathroom Equipment: Grab bars in shower Home Equipment: Quad cane Other : Pt reports ambulating without AD prior to admission. Pt denies any additional recent falls, however, pt has had multiple falls per EMR. Prior Function Lives With: Other (Comment) (Roommate lives upstairs in home; shared 2nd floor bathroom.) Receives Help From: Family (2 local daughters (both work), local siblings) Level of Mobility: Independent with ADLs and functional transfers or gait Homemaking Assistance: Independent Other: Pt reports being grossly independent with IADL; pt goes to laundromat. Pt does not drive; takes the bus. Vocational: Retired ADL / IADL Hand Dominance: Left Where Assessed: Edge of bed, Chair Eating Assistance: Modified independent Grooming Assistance: Min assist Bathing/Showering Assistance: Mod assist Toilet/Commode Assistance: Total assist ([place]) UE Dressing Assistance: Min assist LE Dressing Assistance: Mod assist Footwear Assistance: Mod assist Other: Pt with hylton in place. Min A to [facility]. Increased assist with BADL tasks at this time due to decreased overall strength/activity tolerance. Assist required for thoroughness with brushing hair. Mod I with eating. Home Management - IADL Other: Pt with hylton in place. Min A to [facility]. Increased assist with BADL tasks at this time due to decreased overall strength/activity tolerance. Assist required for thoroughness with brushing hair. Mod I with eating. Hearing / Speech / Vision Hearing: Within Functional Limits Speech: Within Functional Limits Current Vision: Wears glasses all the time Cognition Overall Cognitive Status: Exceptions to Within Functional Limits Arousal/Alertness: Appropriate responses to stimuli Attention Span: Attends with cues to redirect Memory: Decreased recall of precautions, Decreased recall of recent events, Decreased short term memory Orientation Level: Oriented to person, Oriented to place, Oriented to time, Disoriented to situation, Disoriented to month (Pt unable to recall reason for admission; stated it was Mar.) Following Commands: Follows one step commands with increased time, Follows one step commands with repetition Safety Judgment: Decreased awareness of need for assistance, Decreased awareness of need for safety Awareness of Errors: Decreased awareness of errors Insight of Deficits: Decreased awareness of deficits Problem Solving: Reduced Interfering Components: Processing speed, Working memory Other: Pt cooperative with activity; pt noted with decreased short term recall, repeating questions. Cues required for safety. Telesitter and chair alarm in place. Sensation Overall Sensation Status: Exceptions to Within Functional Limits (Pt reports mild tingling in upper back/neck.) Bed Mobility Supine to Sit: Stand by assist, Right Sit to Supine: (NT; pt left up in chair with needs met and call light within reach. RN aware; chair alarm on; telesitter in place.) Other: HOB slightly elevated; use of bedrail. SBA for safety; increased time. Transfers Sit to Stand: Min assist Stand to Sit: Min assist Other: Cues for hand placement using RW; Min A for safety and stability. Gait Gait Assistance: Min assist Assistive Device: Rolling walker Gait Distance: 20' Limiting Factors to Gait: Fatigue, Weakness, Other (comment) (Dizziness) Other: Pt performed functional mobility within room using RW. Pt noted with slow pace; increased time required. Pt c/o mild dizziness with activity; subsided with seated rest break. Further mobility deferred this AM. Balance Balance Evaluation: Exceptions to Functional Limits Sitting Balance: Static: Good Sitting Balance: Dynamic: Fair (+) Standing Balance: Static: Fair Standing Balance: Dynamic: Fair Other: BUE support on RW during standing/mobility; mild unsteadiness, but no major LOB noted. RUE Assessment: (AROM grossly WFL; generalized deconditioning.) LUE Assessment: (AROM grossly WFL; generalized deconditioning.) Activity Tolerance Endurance: Tolerates <30 minutes activity WITHOUT vital sign changes Other: Tolerated activity well with good participation; activity limited by weakness and fatigue at this time. Pt initially on 2L O2/NC in high 90s; activity performed on room air and remained WFL. RN notified. Plan Occupational Therapy Care Plan Occupational Therapy Care Plan (Active) Template: OT - Occupational Therapy Problem: Activity Tolerance Dates: Start: 05/11/24 Disciplines: OT Goal: Tolerate > 30 minutes of activity WITH rest breaks Dates: Start: 05/11/24 Expected End: 06/01/24 Description: Goal Description: Disciplines: OT Problem: Bed Mobility Dates: Start: 05/11/24 Disciplines: OT Goal: Patient will perform bed mobility with Modified [place] Dates: Start: 05/11/24 Expected End: 06/01/24 Description: Goal Description: Disciplines: OT Problem: Functional Mobility Dates: Start: 05/11/24 Disciplines: OT Goal: Patient will perform functional mobility with Modified [place] Dates: Start: 05/11/24 Expected End: 06/01/24 Description: Goal Description: Disciplines: OT Problem: Other (Customize) Dates: Start: 05/11/24 Disciplines: OT Goal: Improve Dates: Start: 05/11/24 Expected End: 06/01/24 Description: Pt will participate in BADL routine at Mod I level, using AD and compensatory strategies as needed. Disciplines: OT Problem: Sitting Balance Dates: Start: 05/11/24 Disciplines: OT Goal: Improve balance to good Dates: Start: 05/11/24 Expected End: 06/01/24 Description: Static Dynamic Disciplines: OT Problem: Standing Balance Dates: Start: 05/11/24 Disciplines: OT Goal: Improve balance to good Dates: Start: 05/11/24 Expected End: 06/01/24 Description: Static Dynamic Disciplines: OT Problem: Strength Dates: Start: 05/11/24 Disciplines: OT Goal: Improve strength Dates: Start: 05/11/24 Expected End: 06/01/24 Description: Of extremity/ location: BUE to 5/5 To facilitate: increased overall strength and activity tolerance for ADL/transfers. Disciplines: OT Problem: Toilet Transfers Dates: Start: 05/11/24 Disciplines: OT Goal: Patient will perform toilet transfers with Modified [place] Dates: Start: 05/11/24 Expected End: 06/01/24 Description: Goal Description: Disciplines: OT Problem: Transfers Dates: Start: 05/11/24 Disciplines: OT Goal: Patient will perform transfers with Modified [place] Dates: Start: 05/11/24 Expected End: 06/01/24 Description: Goal Description: Disciplines: OT Occupational Therapy Care Plan (Resolved) There are no resolved problems. Principal Problem: CHB (complete heart block) ([facility]) Active Problems: ST elevation myocardial infarction (STEMI) ([facility]) Coronary artery disease involving [place] coronary artery of [place] heart Problem: Pain Goal: Patient goal is pain score less than 4, able to rest, and participant in treatment plan as appropriate Description: INTERVENTIONS: 1. Encourage patient or legal direct sales representative to report early pain and ask [...] per policy 9. Teach patient or legal direct sales representative interventions for comforting Outcome: Progressing Note: Evaluation of progress towards goal: Assessed patient for pain level, medicate patient according to level of pain scale with pain medication that is ordered. Repositioning and alternative pain relief offered. Encouraged patient to report pain at onset. Patient denies pain at this time. Problem: Safety Goal: Patient will be injury free during hospitalization Description: INTERVENTIONS: 1. Assess patient's risk for falls and implement fall prevention plan of care per policy 2. Provide and maintain a safe environment 3. Proper use of double Identifiers 4. Medication administration using the 5 rights 5. Hand hygiene 6. Specimens are labeled at the bedside 7. Instruct patient/ patient direct sales representative about use of safety devices 8. Include patient/ patient direct sales representative in decisions related to safety Outcome: Progressing Note: Evaluation of progress towards goal: Patient remains free from injury or falls. Bed alarm on, low, and locked. Call light within reach. Telesitter maintained. Gait unable to be assessed. Problem: Knowledge Deficit Goal: Patient/patient direct sales representative demonstrates understanding of disease process, treatment plan, medications, and discharge instructions Description: INTERVENTIONS 1. Complete learning assessment and assess knowledge base 2. Provide teaching at level of understanding 3. Provide teaching via preferred learning method(s) Outcome: Progressing Note: Evaluation of progress towards goal: plan of care reviewed with the patient. Medication name and function explained to patient before administration. Patient aware of current discharge plan. Needs reinforced. Patient disoriented. Problem: Anxiety Goal: Anxiety is at manageable level Description: Patient's goal is: INTERVENTIONS 1. Assess and monitor patient's anxiety level 2. Monitor for signs and symptoms of anxiety both physical and emotional (heart palpitations, chest pain, shortness of breath, headaches, nausea, feeling jumpy, restlessness, irritable, apprehensive) 3. Reorient/orient patient to unit/surroundings 4. Explain treatment plan 5. Explain tests/procedures prior to initiation 6. Encourage participation in care 7. Encourage verbalization of concerns/fears 8. Assess coping mechanisms 9. Assist in developing anxiety-reducing skills 10. Administer complimentary therapies 11. Manage patient's environment 12. Limit or eliminate stimulants such as caffeine and nicotine 13. Collaborate with ancillary departments 14. Include patient/patient direct sales representative in decisions related to anxiety Outcome: Progressing Note: Evaluation of progress towards goal: patient remains calm and cooperative while pleasantly disoriented. Problem: Safety Goal: Patient will be injury free during hospitalization Description: INTERVENTIONS: 1. Assess patient's risk for falls and implement fall prevention plan of care per policy 2. Provide and maintain a safe environment 3. Proper use of double Identifiers 4. Medication administration using the 5 rights 5. Hand hygiene 6. Specimens are labeled at the bedside 7. Instruct patient/ patient direct sales representative about use of safety devices 8. Include patient/ patient direct sales representative in decisions related to safety Outcome: Progressing Note: Evaluation of progress towards goal: Patient remains injury free during hospital stay. Safety measures used when caring for patient. Problem: Moderate - High Risk Fall Score Description: Lew Fall Score of =/> 25 or indicated by [facility] Assessment Goal: Patient should be free from fall Description: Interventions: 1. [place] to environment 2. Hourly rounds addressing the [...] non-skid footwear 11. Teach patient and patient direct sales representative to maintain environment for safety and [...] (cane, walker) within reach 19. Request patient direct sales representative bring adaptive equipment/mobility aids from home or obtain and provide as needed 20. Consult pharmacy regarding effects of med's affecting mobility, cognition, and alternatives 21. Obtain physician order for PT if risk factors associated with mobility are present 22. Obtain physician order for OT as appropriate 23. Utilize diversional activities 24. Educate patient and patient direct sales representative how to maintain a safe environment during visitation times (notify nurse prior to leaving bedside) 25. Consider appropriateness of medical or non-medical surgical tech 26. Set up voiding schedule as appropriate (every 2 hours) Outcome: Progressing Note: Evaluation of progress towards goal: pt free from falls and injury, pt safety maintained, call light within reach, SPH equipment used Images from the original note were not included. DISCHARGE PLANNING NOTE Weir Fisher met with patient and spoke with patient's daughter, introduced self, and explained role. Patient educated on safe discharge plan. Pt admitted 05/07/2024 with CHB (complete heart block) ([facility]) [I44.2] Acute electrocardiogram changes [R94.31] ST elevation VA (STEMI) ([facility]) [I21.3] per chart review. Consults: Cardiology, Electrophysiology, and Nephrology, neurology. Discharge Barriers per Daily Transition Rounds and chart review: lifevest, CIWA, telesitter. Past Medical History: Diagnosis Date Asthma Asthma Back pain Cervical disc disorder CHB (complete heart block) ([facility]) 05/07/2024 HTN (hypertension) Hx of scabies Low back pain Lumbosacral disc disease Neck pain Osteoarthritis TMJ (temporomandibular joint syndrome) Prior to admission patient was living alone and self care. Medical equipment patient used prior to admission includes: None. Patient denies need for prescription medication assistance resources. PCP: ROSITA Lance [facility] and [facility] confirmed with patient. CN offered to assist with follow up appointment arrangements; patient declines - states will self-schedule follow up appointments. [facility] Casi added to Follow Up Providers for Summary of Care communication. Per patient self-report: Drug use: denies Smokin pack per day, denies smoking cessation resources at this time ETOH Use: denies Current discharge plan is: To be determined, pending progress. Patient lives alone in a second story apartment with a shared bathroom and has 15 steps to enter. Patient's daughter voiced concerns regarding patient's living situation at home, awaiting response from admitting team if patient is making her own decisions. Food assistance resources provided per patient request, patient would like food box on discharge if discharging home. CN reached out for PT/OT orders when appropriate. Services Requested: Services Requested Patient expects to be discharged to:: TBD Does the patient wish to have family/friend/caregiver involved in their discharge planning?: Yes Does the patient plan to return home to a community setting?: (TBD) Discharge Disposition: (TBD) Does the patient need discharge transportation arranged?: Yes Goals: Goals <enter goal here> (pt-stated) Evaluation of progress towards goal: Patient plans for a safe discharge. Will continue to follow as plan of care develops. Please feel free to reach out for any discharge planning questions. - Viji Pham RN 05/10/24 4:14 PM Problem: Pain Goal: Patient goal is pain score less than 4, able to rest, and participant in treatment plan as appropriate Description: INTERVENTIONS: 1. Encourage patient or legal direct sales representative to report early pain and ask [...] per policy 9. Teach patient or legal direct sales representative interventions for comforting 05/09/2024 2020 by DONTE Almeida Outcome: Progressing Note: Evaluation of progress towards goal: Pt reports no pain at this time and is able to rest comfortably. 05/09/2024 2019 by DONTE Almeida Outcome: Progressing Note: Evaluation of progress towards goal: Problem: Safety Goal: Patient will be injury free during hospitalization Description: INTERVENTIONS: 1. Assess patient's risk for falls and implement fall prevention plan of care per policy 2. Provide and maintain a safe environment 3. Proper use of double Identifiers 4. Medication administration using the 5 rights 5. Hand hygiene 6. Specimens are labeled at the bedside 7. Instruct patient/ patient direct sales representative about use of safety devices 8. Include patient/ patient direct sales representative in decisions related to safety Outcome: Progressing Note: Evaluation of progress towards goal: Patient safety maintained throughout shift. Patient educated on safety precautions, and verbalized understanding. Pt has hospital socks on, belongings, and call light are within reach. Pt bed alarm on and tele sitter in room. Problem: Infection Goal: Absence of infection during [...] hygiene technique. 7. Identify and instruct patient/patient direct sales representative in use of appropriate isolation precautions for identified infection/symptoms. 8. Provide and discuss with patient/patient direct sales representative on educational MDRO sheet. 9. Encourage and monitor nutritional status daily and consult flower grower if indicated. 10. Implement neutropenic guidelines as needed. Outcome: Progressing Note: Evaluation of progress towards goal: Pt remained afebrile throughout shift and showed no s/s of infection. Problem: Knowledge Deficit Goal: Patient/patient direct sales representative demonstrates understanding of disease process, treatment plan, medications, and discharge instructions Description: INTERVENTIONS 1. Complete learning assessment and assess knowledge base 2. Provide teaching at level of understanding 3. Provide teaching via preferred learning method(s) Outcome: Progressing Note: Evaluation of progress towards goal: Patient and family up to date on new testing, results, medications, and procedures. Problem: Discharge Planning Goal: Discharge to post-acute [...] Note: Evaluation of progress towards goal: Discharge barriers reviewed with patient and family. No plans for dc today. Problem: Moderate - High Risk Fall Score Description: Lew Fall Score of =/> 25 or indicated by [facility] Assessment Goal: Patient should be free from fall Description: Interventions: 1. [place] to environment 2. Hourly rounds addressing the [...] non-skid footwear 11. Teach patient and patient direct sales representative to maintain environment for safety and [...] (cane, walker) within reach 19. Request patient direct sales representative bring adaptive equipment/mobility aids from home or obtain and provide as needed 20. Consult pharmacy regarding effects of med's affecting mobility, cognition, and alternatives 21. Obtain physician order for PT if risk factors associated with mobility are present 22. Obtain physician order for OT as appropriate 23. Utilize diversional activities 24. Educate patient and patient direct sales representative how to maintain a safe environment during visitation times (notify nurse prior to leaving bedside) 25. Consider appropriateness of medical or non-medical surgical tech 26. Set up voiding schedule as appropriate (every 2 hours) Outcome: Progressing Note: Evaluation of progress towards goal: Pt educated on fall risk precautions. Pt used call light appropriately and safety maintained this shift. Problem: Hemodynamic Status Goal: Maintains optimal cardiac output and hemodynamic stability Description: Patient's goal is: INTERVENTIONS 1. Assess and monitor patient's heart rate, rhythm, respiratory rate, peripheral pulses, capillary refill, color, body temperature, intake and output 2. Monitor labs and diagnostic testing 3. Observe for signs of chest pain (note location, duration, severity, radiation and associated symptoms such as diaphoresis, nausea, indigestion) 4. Monitor for signs and symptoms of heart failure (i.e. shortness of breath, edema of feet/ankles/legs, rapid irregular heart rate, coughing, wheezing, white/pink blood tinged sputum, sudden weight gain, chest pain) 5. Plan activities to conserve energy 6. Monitor for signs and symptoms of bleeding Outcome: Progressing Note: Evaluation of progress towards goal: Pt remains hemodynamically stable at this time. Pre Procedure Evaluation: H&P was reviewed and the patient was examined. No change has occurred in the patient's condition since the H&P was completed. ASA: 3 Mallampati: II Sedation plan and risks discussed with: patient Indication(s) for Business Planning Director Visit: ACS > 24hrs Chest Pain Symptom Assessment: typical Cardiovascular Instability: No Heart Failure: Yes Congestive Heart Failure (NYHA Classification most recent): III Heart Failure Newly Diagnosed: Yes Heart Failure Type: Systolic Electrocardiac Assessment Method: ECG Results: normal and abnormal Stress Test Performed: No Cardiac CTA: No CSHA Clinical Frailty Scale (Assessment immediately prior to procedure): 6: Moderately Frail Cardiac Arrest Out of Hospital: No Cardiac Arrest at Transferring Facility: No Query Response Note CDI QUERY TEXT: Encephalopathy Type [id number] Disclaimer: By submitting this query, we are merely seeking further clarification of documentation to accurately reflect all conditions that you are monitoring, evaluating, treating or that extend the hospitalization or utilize additional resources of care. Please utilize your independent clinical judgment when addressing the question(s) below. Dear Dr. Gregory, The patient is admitted with STEMI and underwent GARETT to LAD on 05/07. PPC note 05/08 documenta, ??Alcohol abuse, Substance use including Kratom? This morning the patient was out of it, her daughter reports that she got Ativan and that's how she gets. She was unable to answer questions or fully wake up? Start CIWA protocol for concern of alcohol withdrawal? Just received Ativan?? Nephrology consult 05/08 includes, ??patient is currently unresponsive encephalopathic starts post Ativan overnight?? Nursing documentation: Oriented to person only. Urine Tox screen 05/08: Positive for Benzodiazepine and Opiate. Medications have included Ativan 0.5mg IVP on 05/07, Ativan 1mg po on 05/08 and Morphine IV on 05/07. Please specify type of encephalopathy, such as: - Due to medications or drugs, please specify - Toxic - Other, please specify Please respond on this query and in the progress notes. Thank you, MISSY Lemon, RN [facility] Information Management Email: [email or web address] If you have any questions or concerns, regarding this query, please call or send them to me via e-mail. The patient's Clinical Indicators include: As above. CDI RESPONSE TEXT: Provider dismissed this query because it was not applicable to the patient or not a valid query. Unable to assess Query created by: Gale Gonzalez on 05/09/2024 9:45 AM Electronically signed by: Alfa Gregory MD 05/09/2024 1:15 PM Problem: Pain Goal: Patient goal is pain score less than 4, able to rest, and participant in treatment plan as appropriate Description: INTERVENTIONS: 1. Encourage patient or legal direct sales representative to report early pain and ask [...] per policy 9. Teach patient or legal direct sales representative interventions for comforting Outcome: Progressing Note: Evaluation of progress towards goal: denies c/o pain at this time. Assessed q4h and prn Problem: Safety Goal: Patient will be injury free during hospitalization Description: INTERVENTIONS: 1. Assess patient's risk for falls and implement fall prevention plan of care per policy 2. Provide and maintain a safe environment 3. Proper use of double Identifiers 4. Medication administration using the 5 rights 5. Hand hygiene 6. Specimens are labeled at the bedside 7. Instruct patient/ patient direct sales representative about use of safety devices 8. Include patient/ patient direct sales representative in decisions related to safety Outcome: Progressing Note: Evaluation of progress towards goal: free of injury at this time. Bed low/locked, SR up x3, call light in reach. Pt confused, forgetful. Telesitter and bed alarm. Problem: Infection Goal: Absence of infection during [...] hygiene technique. 7. Identify and instruct patient/patient direct sales representative in use of appropriate isolation precautions for identified infection/symptoms. 8. Provide and discuss with patient/patient direct sales representative on educational MDRO sheet. 9. Encourage and monitor nutritional status daily and consult flower grower if indicated. 10. Implement neutropenic guidelines as needed. Outcome: Progressing Note: Evaluation of progress towards goal: afebrile. No s/s infection noted Problem: Knowledge Deficit Goal: Patient/patient direct sales representative demonstrates understanding of disease process, treatment plan, medications, and discharge instructions Description: INTERVENTIONS 1. Complete learning assessment and assess knowledge base 2. Provide teaching at level of understanding 3. Provide teaching via preferred learning method(s) Outcome: Progressing Note: Evaluation of progress towards goal: pt and pt's family updated no plans for cardiac cath today Problem: Discharge Planning Goal: Discharge to post-acute [...] Progressing Note: Evaluation of progress towards goal: no plans for d/c today. Pt to have cardiac cath Problem: Moderate - High Risk Fall Score Description: Lew Fall Score of =/> 25 or indicated by [facility] Assessment Goal: Patient should be free from fall Description: Interventions: 1. [place] to environment 2. Hourly rounds addressing the [...] non-skid footwear 11. Teach patient and patient direct sales representative to maintain environment for safety and [...] (cane, walker) within reach 19. Request patient direct sales representative bring adaptive equipment/mobility aids from home or obtain and provide as needed 20. Consult pharmacy regarding effects of med's affecting mobility, cognition, and alternatives 21. Obtain physician order for PT if risk factors associated with mobility are present 22. Obtain physician order for OT as appropriate 23. Utilize diversional activities 24. Educate patient and patient direct sales representative how to maintain a safe environment during visitation times (notify nurse prior to leaving bedside) 25. Consider appropriateness of medical or non-medical surgical tech 26. Set up voiding schedule as appropriate (every 2 hours) Outcome: Progressing Note: Evaluation of progress towards goal: free of falls. Fall precautions per policy Problem: Nutrition Goal: Patient's nutritional intake is adequate Description: [...] supplement as ordered 13. Collaborate with clinical flower grower 14. Include patient/ patient's direct sales representative in decisions related to nutrition Outcome: Progressing Note: Evaluation of progress towards goal: npo for cardiac cath Problem: Potential for Compromised Skin Integrity Goal: [...] supplement as ordered 13. Collaborate with clinical flower grower 14. Include patient/ patient's direct sales representative in decisions related to nutrition Outcome: Progressing Note: Evaluation of progress towards goal: npo for cardiac cath Goal: Skin integrity is maintained or improved [...] Progressing Note: Evaluation of progress towards goal: abrasion to right shoulder and bridge of nose. Pt repositions self in bed Problem: Urinary Incontinence Goal: Perineal skin integrity [...] Progressing Note: Evaluation of progress towards goal: [place] intact and draining. Perineal skin intact Predicted Risk Adjusted CathPCI Bleeding Event Risk Patient's Risk 3.7% National Average 3.3% as of September, In the [place], the average bleeding event risk for all patients undergoing this procedure is 3.3%. Taking into account the patient s specific clinical condition, the statistical estimate that the patient may experience a bleeding event is 3.7%. This means that for every 100 patients having a similar clinical makeup, there would be 3.7 that experienced a bleeding event. Bleeding Event is an absolute drop in hemoglobin >= 4g/dL, a RBC transfusion and/or a procedural intervention/surgery to reverse/stop bleeding that occurs within 72 hours of the PCI procedure. The model provides an objective risk-adjusted estimate of bleeding which has real value for both patient and provider. It should be considered as one element in the evaluation process, to be considered along with the other traditional factors that determine whether the patient is an appropriate candidate for the procedure. Based on following evaluation Patient Demographics Age : 63 Years Sex : Female Race : White Patient Pre-Procedural Characteristics Body Mass Index (BMI) 19.33 kg/m2 Height 5 Feet 0 Inches Weight 99 lbs Baseline Hemoglobin 10.1 g/dL Prior STEMI No Prior Cardiogenic Shock No Prior PCI Yes Dialysis No Glomerular Filtration Rate (estimated) 188.71 mL/min/1.73m2 Serum Creatinine (SCr) 0.37 mg/dL Problem: Pain Goal: Patient goal is pain score less than 4, able to rest, and participant in treatment plan as appropriate Description: INTERVENTIONS: 1. Encourage patient or legal direct sales representative to report early pain and ask [...] per policy 9. Teach patient or legal direct sales representative interventions for comforting Outcome: Progressing Note: Evaluation of progress towards goal: Patient's pain controlled with prn medications, as ordered. Pt able to rest this shift. Problem: Safety Goal: Patient will be injury free during hospitalization Description: INTERVENTIONS: 1. Assess patient's risk for falls and implement fall prevention plan of care per policy 2. Provide and maintain a safe environment 3. Proper use of double Identifiers 4. Medication administration using the 5 rights 5. Hand hygiene 6. Specimens are labeled at the bedside 7. Instruct patient/ patient direct sales representative about use of safety devices 8. Include patient/ patient direct sales representative in decisions related to safety Outcome: Progressing Note: Evaluation of progress towards goal: Patient safety maintained throughout shift. Patient educated on safety precautions, and verbalized understanding. Pt has hospital socks on, belongings, and call light are within reach. Pt has bed alarm on as well as a tele sitter. Problem: Infection Goal: Absence of infection during [...] hygiene technique. 7. Identify and instruct patient/patient direct sales representative in use of appropriate isolation precautions for identified infection/symptoms. 8. Provide and discuss with patient/patient direct sales representative on educational MDRO sheet. 9. Encourage and monitor nutritional status daily and consult flower grower if indicated. 10. Implement neutropenic guidelines as needed. Outcome: Progressing Note: Evaluation of progress towards goal: Pt remained afebrile throughout shift and showed no s/s of infection. Problem: Knowledge Deficit Goal: Patient/patient direct sales representative demonstrates understanding of disease process, treatment plan, medications, and discharge instructions Description: INTERVENTIONS 1. Complete learning assessment and assess knowledge base 2. Provide teaching at level of understanding 3. Provide teaching via preferred learning method(s) Outcome: Progressing Note: Evaluation of progress towards goal: Patient and family up to date on new testing, results, medications, and procedures. Pt needs constant reminding of plan d/t current cognitive state. Problem: Discharge Planning Goal: Discharge to post-acute [...] Note: Evaluation of progress towards goal: Discharge barriers reviewed with patient and family. No plans for dc today. Problem: Moderate - High Risk Fall Score Description: Lew Fall Score of =/> 25 or indicated by [facility] Assessment Goal: Patient should be free from fall Description: Interventions: 1. [place] to environment 2. Hourly rounds addressing the [...] non-skid footwear 11. Teach patient and patient direct sales representative to maintain environment for safety and [...] (cane, walker) within reach 19. Request patient direct sales representative bring adaptive equipment/mobility aids from home or obtain and provide as needed 20. Consult pharmacy regarding effects of med's affecting mobility, cognition, and alternatives 21. Obtain physician order for PT if risk factors associated with mobility are present 22. Obtain physician order for OT as appropriate 23. Utilize diversional activities 24. Educate patient and patient direct sales representative how to maintain a safe environment during visitation times (notify nurse prior to leaving bedside) 25. Consider appropriateness of medical or non-medical surgical tech 26. Set up voiding schedule as appropriate (every 2 hours) Outcome: Progressing Note: Evaluation of progress towards goal: Pt educated on fall risk precautions. Pt used call light appropriately and safety maintained this shift. Problem: Hemodynamic Status Goal: Maintains optimal cardiac output and hemodynamic stability Description: Patient's goal is: INTERVENTIONS 1. Assess and monitor patient's heart rate, rhythm, respiratory rate, peripheral pulses, capillary refill, color, body temperature, intake and output 2. Monitor labs and diagnostic testing 3. Observe for signs of chest pain (note location, duration, severity, radiation and associated symptoms such as diaphoresis, nausea, indigestion) 4. Monitor for signs and symptoms of heart failure (i.e. shortness of breath, edema of feet/ankles/legs, rapid irregular heart rate, coughing, wheezing, white/pink blood tinged sputum, sudden weight gain, chest pain) 5. Plan activities to conserve energy 6. Monitor for signs and symptoms of bleeding Outcome: Progressing Note: Evaluation of progress towards goal: Pt remains hemodynamically stable at this time. Pt is scheduled for cath tomorrow. Problem: Pain Goal: Patient goal is pain score less than 4, able to rest, and participant in treatment plan as appropriate Description: INTERVENTIONS: 1. Encourage patient or legal direct sales representative to report early pain and ask [...] per policy 9. Teach patient or legal direct sales representative interventions for comforting Outcome: Progressing Note: Evaluation of progress towards goal: denies c/o pain at this time. Assessed q4h and prn Problem: Safety Goal: Patient will be injury free during hospitalization Description: INTERVENTIONS: 1. Assess patient's risk for falls and implement fall prevention plan of care per policy 2. Provide and maintain a safe environment 3. Proper use of double Identifiers 4. Medication administration using the 5 rights 5. Hand hygiene 6. Specimens are labeled at the bedside 7. Instruct patient/ patient direct sales representative about use of safety devices 8. Include patient/ patient direct sales representative in decisions related to safety Outcome: Progressing Note: Evaluation of progress towards goal: free of injury. Bed low/locked, SR up x3, call light in reach. Pt confused, forgetful. Bed alarm on. Telesitter in room Problem: Infection Goal: Absence of infection during [...] hygiene technique. 7. Identify and instruct patient/patient direct sales representative in use of appropriate isolation precautions for identified infection/symptoms. 8. Provide and discuss with patient/patient direct sales representative on educational MDRO sheet. 9. Encourage and monitor nutritional status daily and consult flower grower if indicated. 10. Implement neutropenic guidelines as needed. Outcome: Progressing Note: Evaluation of progress towards goal: afebrile. WBC 10.0 Problem: Knowledge Deficit Goal: Patient/patient direct sales representative demonstrates understanding of disease process, treatment plan, medications, and discharge instructions Description: INTERVENTIONS 1. Complete learning assessment and assess knowledge base 2. Provide teaching at level of understanding 3. Provide teaching via preferred learning method(s) Outcome: Progressing Note: Evaluation of progress towards goal: pt's family updated on POC w/ verbalized understanding. Pt forgetful and confused, difficult to educate. Problem: Discharge Planning Goal: Discharge to post-acute [...] Progressing Note: Evaluation of progress towards goal: no plans to d/c at this time. Pt to have cardiac cath tomorrow. Problem: Moderate - High Risk Fall Score Description: Lew Fall Score of =/> 25 or indicated by [facility] Assessment Goal: Patient should be free from fall Description: Interventions: 1. [place] to environment 2. Hourly rounds addressing the [...] non-skid footwear 11. Teach patient and patient direct sales representative to maintain environment for safety and [...] (cane, walker) within reach 19. Request patient direct sales representative bring adaptive equipment/mobility aids from home or obtain and provide as needed 20. Consult pharmacy regarding effects of med's affecting mobility, cognition, and alternatives 21. Obtain physician order for PT if risk factors associated with mobility are present 22. Obtain physician order for OT as appropriate 23. Utilize diversional activities 24. Educate patient and patient direct sales representative how to maintain a safe environment during visitation times (notify nurse prior to leaving bedside) 25. Consider appropriateness of medical or non-medical surgical tech 26. Set up voiding schedule as appropriate (every 2 hours) Outcome: Progressing Note: Evaluation of progress towards goal: free of falls at this time. Fall precautions per policy Problem: Hemodynamic Status Goal: Maintains optimal cardiac output and hemodynamic stability Description: Patient's goal is: INTERVENTIONS 1. Assess and monitor patient's heart rate, rhythm, respiratory rate, peripheral pulses, capillary refill, color, body temperature, intake and output 2. Monitor labs and diagnostic testing 3. Observe for signs of chest pain (note location, duration, severity, radiation and associated symptoms such as diaphoresis, nausea, indigestion) 4. Monitor for signs and symptoms of heart failure (i.e. shortness of breath, edema of feet/ankles/legs, rapid irregular heart rate, coughing, wheezing, white/pink blood tinged sputum, sudden weight gain, chest pain) 5. Plan activities to conserve energy 6. Monitor for signs and symptoms of bleeding Outcome: Progressing Note: Evaluation of progress towards goal: VSS. SR-ST. Fingers dusky. Skin pale/warm/dry Problem: Activity Intolerance/Impaired Mobility Goal: Mobility/activity is maintained at optimum level for patient Description: Patient's goal is: INTERVENTIONS 1. Assess and monitor patient barriers to mobility and need for assistive/adaptive devices 2. Assess patient's emotional response to limitations 3. Collaborate with interdisciplinary teams and initiate plans and interventions as ordered 4. Encourage independent activity per tolerance 5. Maintain proper body alignment 6. Perform active/passive ROM as tolerated/ordered 7. Coordinate activities to conserve energy 8. Reposition patient 9. Ensure adequate rest/sleep time Outcome: Progressing Note: Evaluation of progress towards goal: pt remains on bedrest at this time. Will increase activity as tolerated Problem: Nutrition Goal: Patient's nutritional intake is adequate Description: [...] supplement as ordered 13. Collaborate with clinical flower grower 14. Include patient/ patient's direct sales representative in decisions related to nutrition Outcome: Progressing Note: Evaluation of progress towards goal: pt on regular, MARIZA, low fat/cholesterol diet. Poor appetite Problem: Potential for Compromised Skin Integrity Goal: [...] supplement as ordered 13. Collaborate with clinical flower grower 14. Include patient/ patient's direct sales representative in decisions related to nutrition Outcome: Progressing Note: Evaluation of progress towards goal: pt on regular, MARIZA, low fat/cholesterol diet. Poor appetite Goal: Skin integrity is maintained or improved [...] Progressing Note: Evaluation of progress towards goal: abrasion to right shoulder and bridge of nose. Foam pad to buttocks. Pt repositions self. Problem: Urinary Incontinence Goal: Perineal skin integrity [...] Progressing Note: Evaluation of progress towards goal: [place] intact and draining. Perineal skin intact Problem: Pain Goal: Patient goal is pain score less than 4, able to rest, and participant in treatment plan as appropriate Description: INTERVENTIONS: 1. Encourage patient or legal direct sales representative to report early pain and ask [...] per policy 9. Teach patient or legal direct sales representative interventions for comforting Outcome: Progressing Note: Evaluation of progress towards goal: pain assessed with each interaction, meds given as charted Problem: Safety Goal: Patient will be injury free during hospitalization Description: INTERVENTIONS: 1. Assess patient's risk for falls and implement fall prevention plan of care per policy 2. Provide and maintain a safe environment 3. Proper use of double Identifiers 4. Medication administration using the 5 rights 5. Hand hygiene 6. Specimens are labeled at the bedside 7. Instruct patient/ patient direct sales representative about use of safety devices 8. Include patient/ patient direct sales representative in decisions related to safety Outcome: Progressing Note: Evaluation of progress towards goal: no falls to date this hospitalization Problem: Infection Goal: Absence of infection during [...] hygiene technique. 7. Identify and instruct patient/patient direct sales representative in use of appropriate isolation precautions for identified infection/symptoms. 8. Provide and discuss with patient/patient direct sales representative on educational MDRO sheet. 9. Encourage and monitor nutritional status daily and consult flower grower if indicated. 10. Implement neutropenic guidelines as needed. Outcome: Progressing Note: Evaluation of progress towards goal: no s/s active infection noted. Afebrile, WBC WNL, invasive lines without redness, drainage, or swelling Problem: Knowledge Deficit Goal: Patient/patient direct sales representative demonstrates understanding of disease process, treatment plan, medications, and discharge instructions Description: INTERVENTIONS 1. Complete learning assessment and assess knowledge base 2. Provide teaching at level of understanding 3. Provide teaching via preferred learning method(s) Outcome: Progressing Note: Evaluation of progress towards goal: education provided with each interaction, questions answered Problem: Discharge Planning Goal: Discharge to post-acute [...] Progressing Note: Evaluation of progress towards goal: caser shoe parts following for DC planning when appropriate Problem: Moderate - High Risk Fall Score Description: Lew Fall Score of =/> 25 or indicated by [facility] Assessment Goal: Patient should be free from fall Description: Interventions: 1. [place] to environment 2. Hourly rounds addressing the [...] non-skid footwear 11. Teach patient and patient direct sales representative to maintain environment for safety and [...] (cane, walker) within reach 19. Request patient direct sales representative bring adaptive equipment/mobility aids from home or obtain and provide as needed 20. Consult pharmacy regarding effects of med's affecting mobility, cognition, and alternatives 21. Obtain physician order for PT if risk factors associated with mobility are present 22. Obtain physician order for OT as appropriate 23. Utilize diversional activities 24. Educate patient and patient direct sales representative how to maintain a safe environment during visitation times (notify nurse prior to leaving bedside) 25. Consider appropriateness of medical or non-medical surgical tech 26. Set up voiding schedule as appropriate (every 2 hours) Outcome: Progressing Note: Evaluation of progress towards goal: high fall risk calculated per Lew scale, interventions in place as charted, no falls this shift Problem: Anxiety Goal: Anxiety is at manageable level Description: Patient's goal is: INTERVENTIONS 1. Assess and monitor patient's anxiety level 2. Monitor for signs and symptoms of anxiety both physical and emotional (heart palpitations, chest pain, shortness of breath, headaches, nausea, feeling jumpy, restlessness, irritable, apprehensive) 3. Reorient/orient patient to unit/surroundings 4. Explain treatment plan 5. Explain tests/procedures prior to initiation 6. Encourage participation in care 7. Encourage verbalization of concerns/fears 8. Assess coping mechanisms 9. Assist in developing anxiety-reducing skills 10. Administer complimentary therapies 11. Manage patient's environment 12. Limit or eliminate stimulants such as caffeine and nicotine 13. Collaborate with ancillary departments 14. Include patient/patient direct sales representative in decisions related to anxiety Outcome: Progressing Note: Evaluation of progress towards goal: medicated as charted, appears calmer and easier to direct after IV ativan given Problem: Hemodynamic Status Goal: Maintains optimal cardiac output and hemodynamic stability Description: Patient's goal is: INTERVENTIONS 1. Assess and monitor patient's heart rate, rhythm, respiratory rate, peripheral pulses, capillary refill, color, body temperature, intake and output 2. Monitor labs and diagnostic testing 3. Observe for signs of chest pain (note location, duration, severity, radiation and associated symptoms such as diaphoresis, nausea, indigestion) 4. Monitor for signs and symptoms of heart failure (i.e. shortness of breath, edema of feet/ankles/legs, rapid irregular heart rate, coughing, wheezing, white/pink blood tinged sputum, sudden weight gain, chest pain) 5. Plan activities to conserve energy 6. Monitor for signs and symptoms of bleeding Outcome: Progressing Note: Evaluation of progress towards goal: BP/HR stable, labs improving, pulses palpable Problem: Inadequate Coping Goal: Demonstrates and verbalizes ability to cope effectively Description: Patient's goal is: INTERVENTIONS 1. Patient is able to verbalize feelings related to emotional state 2. Encourage verbalization of feelings, perceptions, fears, stressors, loss of loved ones 3. Encourage verbalization of problems out of their control 4. Encourage participation in care and self management 5. Inform patient of all treatment/care prior to providing care 6. Collaborate with pastoral/spiritual care, social worker health services, mental health counselor as needed. 7. Instruct patient on diversional activities such as physical activity, distraction, and deep breathing exercises to assist with coping 8. Involve patient's direct sales representative in care Outcome: Progressing Note: Evaluation of progress towards goal: not coping at this time, confused and difficult to redirect. Emotional support provided Problem: Activity Intolerance/Impaired Mobility Goal: Mobility/activity is maintained at optimum level for patient Description: Patient's goal is: INTERVENTIONS 1. Assess and monitor patient barriers to mobility and need for assistive/adaptive devices 2. Assess patient's emotional response to limitations 3. Collaborate with interdisciplinary teams and initiate plans and interventions as ordered 4. Encourage independent activity per tolerance 5. Maintain proper body alignment 6. Perform active/passive ROM as tolerated/ordered 7. Coordinate activities to conserve energy 8. Reposition patient 9. Ensure adequate rest/sleep time Outcome: Progressing Note: Evaluation of progress towards goal: remains on strict bedrest with femoral sheath and pacer wires in place Problem: Nutrition Goal: Patient's nutritional intake is adequate Description: [...] supplement as ordered 13. Collaborate with clinical flower grower 14. Include patient/ patient's direct sales representative in decisions related to nutrition Outcome: Progressing Note: Evaluation of progress towards goal: NPO at this time- reported choking when eating at home prior to admit. No cough with sips H2O with PO meds. Problem: Potential for Compromised Skin Integrity Goal: [...] supplement as ordered 13. Collaborate with clinical flower grower 14. Include patient/ patient's direct sales representative in decisions related to nutrition Outcome: Progressing Note: Evaluation of progress towards goal: NPO at this time- reported choking when eating at home prior to admit. No cough with sips H2O with PO meds. Goal: Skin integrity is maintained or improved [...] Progressing Note: Evaluation of progress towards goal: no new breakdown in skin integrity noted Problem: Urinary Incontinence Goal: Perineal skin integrity [...] Progressing Note: Evaluation of progress towards goal: no breakdown in jonathan area skin integrity noted Problem: Pain Goal: Patient goal is pain score less than 4, able to rest, and participant in treatment plan as appropriate Description: INTERVENTIONS: 1. Encourage patient or legal direct sales representative to report early pain and ask [...] per policy 9. Teach patient or legal direct sales representative interventions for comforting Outcome: Progressing Note: Evaluation of progress towards goal: medicated for c/o chest pain w/ some relief. Problem: Safety Goal: Patient will be injury free during hospitalization Description: INTERVENTIONS: 1. Assess patient's risk for falls and implement fall prevention plan of care per policy 2. Provide and maintain a safe environment 3. Proper use of double Identifiers 4. Medication administration using the 5 rights 5. Hand hygiene 6. Specimens are labeled at the bedside 7. Instruct patient/ patient direct sales representative about use of safety devices 8. Include patient/ patient direct sales representative in decisions related to safety Outcome: Progressing Note: Evaluation of progress towards goal: free of injury at this time. Bed low/locked, SR up x3, call light in reach. Problem: Infection Goal: Absence of infection during [...] hygiene technique. 7. Identify and instruct patient/patient direct sales representative in use of appropriate isolation precautions for identified infection/symptoms. 8. Provide and discuss with patient/patient direct sales representative on educational MDRO sheet. 9. Encourage and monitor nutritional status daily and consult flower grower if indicated. 10. Implement neutropenic guidelines as needed. Outcome: Progressing Note: Evaluation of progress towards goal: afebrile. WBC 17.7 Problem: Knowledge Deficit Goal: Patient/patient direct sales representative demonstrates understanding of disease process, treatment plan, medications, and discharge instructions Description: INTERVENTIONS 1. Complete learning assessment and assess knowledge base 2. Provide teaching at level of understanding 3. Provide teaching via preferred learning method(s) Outcome: Progressing Note: Evaluation of progress towards goal: pt updated on POC w/ verbalized understanding. Pt's daughter notified via phone of plans for emergent cardiac cath Problem: Moderate - High Risk Fall Score Description: Lew Fall Score of =/> 25 or indicated by [facility] Assessment Goal: Patient should be free from fall Description: Interventions: 1. [place] to environment 2. Hourly rounds addressing the [...] non-skid footwear 11. Teach patient and patient direct sales representative to maintain environment for safety and [...] (cane, walker) within reach 19. Request patient direct sales representative bring adaptive equipment/mobility aids from home or obtain and provide as needed 20. Consult pharmacy regarding effects of med's affecting mobility, cognition, and alternatives 21. Obtain physician order for PT if risk factors associated with mobility are present 22. Obtain physician order for OT as appropriate 23. Utilize diversional activities 24. Educate patient and patient direct sales representative how to maintain a safe environment during visitation times (notify nurse prior to leaving bedside) 25. Consider appropriateness of medical or non-medical surgical tech 26. Set up voiding schedule as appropriate (every 2 hours) Outcome: Progressing Note: Evaluation of progress towards goal: free of falls at this time. Fall precautions per policy Problem: Anxiety Goal: Anxiety is at manageable level Description: Patient's goal is: INTERVENTIONS 1. Assess and monitor patient's anxiety level 2. Monitor for signs and symptoms of anxiety both physical and emotional (heart palpitations, chest pain, shortness of breath, headaches, nausea, feeling jumpy, restlessness, irritable, apprehensive) 3. Reorient/orient patient to unit/surroundings 4. Explain treatment plan 5. Explain tests/procedures prior to initiation 6. Encourage participation in care 7. Encourage verbalization of concerns/fears 8. Assess coping mechanisms 9. Assist in developing anxiety-reducing skills 10. Administer complimentary therapies 11. Manage patient's environment 12. Limit or eliminate stimulants such as caffeine and nicotine 13. Collaborate with ancillary departments 14. Include patient/patient direct sales representative in decisions related to anxiety Outcome: Progressing Note: Evaluation of progress towards goal: emotional support given to pt. Problem: Hemodynamic Status Goal: Maintains optimal cardiac output and hemodynamic stability Description: Patient's goal is: INTERVENTIONS 1. Assess and monitor patient's heart rate, rhythm, respiratory rate, peripheral pulses, capillary refill, color, body temperature, intake and output 2. Monitor labs and diagnostic testing 3. Observe for signs of chest pain (note location, duration, severity, radiation and associated symptoms such as diaphoresis, nausea, indigestion) 4. Monitor for signs and symptoms of heart failure (i.e. shortness of breath, edema of feet/ankles/legs, rapid irregular heart rate, coughing, wheezing, white/pink blood tinged sputum, sudden weight gain, chest pain) 5. Plan activities to conserve energy 6. Monitor for signs and symptoms of bleeding Outcome: Progressing Note: Evaluation of progress towards goal: pt in and out of [facility] and [facility]. Isuprel gtt cont. STEMI-emergent cardiac cath Problem: Activity Intolerance/Impaired Mobility Goal: Mobility/activity is maintained at optimum level for patient Description: Patient's goal is: INTERVENTIONS 1. Assess and monitor patient barriers to mobility and need for assistive/adaptive devices 2. Assess patient's emotional response to limitations 3. Collaborate with interdisciplinary teams and initiate plans and interventions as ordered 4. Encourage independent activity per tolerance 5. Maintain proper body alignment 6. Perform active/passive ROM as tolerated/ordered 7. Coordinate activities to conserve energy 8. Reposition patient 9. Ensure adequate rest/sleep time Outcome: Progressing Note: Evaluation of progress towards goal: pt on bedrest d/t arrhythmias Problem: Nutrition Goal: Patient's nutritional intake is adequate Description: [...] supplement as ordered 13. Collaborate with clinical flower grower 14. Include patient/ patient's direct sales representative in decisions related to nutrition Outcome: Progressing Note: Evaluation of progress towards goal: npo for cardiac cath Pre Procedure Evaluation: H&P was reviewed and the patient was examined. No change has occurred in the patient's condition since the H&P was completed. ASA: 6 Emergent Mallampati: Unable to assess Indication(s) for Business Planning Director Visit: ACS <= 24 hrs and Cardiomyopathy Chest Pain Symptom Assessment: typical Cardiovascular Instability: Yes Cardiovascular Instability Type: Hemodynamic Instability (not cardiogenic shock) Heart Failure: Yes Congestive Heart Failure (NYHA Classification most recent): IV Heart Failure Newly Diagnosed: Yes Heart Failure Type: Systolic Electrocardiac Assessment Method: ECG Results: abnormal Electrocardiac Abnormality Type: 3rd Degree AV Heart Block and Symptomatic Bradyarrythmia Stress Test Performed: No Cardiac CTA: No CS Clinical Frailty Scale (Assessment immediately prior to procedure): 6: Moderately Frail Cardiac Arrest Out of Hospital: No Cardiac Arrest at Transferring Facility: No documented in this encounter [facility] 05-17-2024 History of Present illness Narrative Images from the original note were not included. [facility] INTERNAL MEDICINE [address] ACUTE [address] [facility] [id number] Hospital Medicine Progress Note Patient: Alie Briones Date of : 1960 Room: [place] [address] PCP: ROSITA Lance Admission date: 05/07/2024 3:54 PM Encounter date: 05/17/24 Hospital Day: 11 SUBJECTIVE Chief complaints: No chief complaint on file. Interval History: Resting in bed, family at bedside, patient remains medically ready for discharge at this time. Care Navigation still working on placement. Review of Systems Constitutional: Negative for activity change, appetite change, fatigue and unexpected weight change. HENT: Negative for trouble swallowing. Respiratory: Negative for cough, sputum production, shortness of breath and wheezing. Cardiovascular: Negative for chest pain, palpitations and leg swelling. Gastrointestinal: Negative for abdominal pain, blood in stool, melena, constipation, diarrhea, nausea and vomiting. Genitourinary: Negative for difficulty urinating. Skin: Negative for color change and wound. Neurological: Negative for dizziness, seizures, speech difficulty and headaches. Positive for confusion Psychiatric/Behavioral: Negative for sleep disturbance. OBJECTIVE BP 112/64 Pulse 77 Temp 36.4 C (97.6 F) (Oral) Resp 14 Ht 152.4 cm (5') Wt 42.8 kg (94 lb 5.7 oz) Comment: PT refused standing weight, RN aware SpO2 98% BMI 18.43 kg/m Temp: [36.4 C (97.5 F)-36.8 C (98.3 F)] 36.4 C (97.6 F) Pulse: [69-83] 77 Resp: [14-17] 14 BP: (94-121)/(50-70) 112/64 SpO2: [93 %-100 %] 98 % O2 Device: None (Room air) O2 Flow Rate (L/min): [0 L/min] 0 L/min Intake/Output Summary (Last 24 hours) at 05/17/2024 1447 Last data filed at 05/17/2024 0512 Gross per 24 hour Intake 250 ml Output 2100 ml Net -1850 ml Physical Exam Constitutional: General: No acute distress. Cardiovascular: Rate and Rhythm: Normal rate and regular rhythm. Heart sounds: Normal heart sounds, S1 normal and S2 normal. Pulmonary: Effort: Pulmonary effort is normal. Breath sounds: Normal breath sounds. Abdominal: General: Bowel sounds are normal. Palpations: Abdomen is soft. Tenderness: There is no abdominal tenderness. Musculoskeletal: Right lower leg: No edema. Left lower leg: No edema. Skin: General: Skin is warm and dry. Coloration: Skin is not pale. Neurological: General: No focal deficit present. Alert, oriented to person, place Psychiatric: Mood and Affect: Mood normal. Behavior: Behavior normal. Medications Scheduled: aspirin, 81 mg, oral, Daily atorvastatin, 80 mg, oral, Nightly busPIRone, 10 mg, oral, BID dapagliflozin propanediol, 10 mg, oral, Daily DULoxetine, 60 mg, oral, Daily folic acid, 1 mg, oral, Daily gabapentin, 300 mg, oral, 4x Daily heparin (porcine), 5,000 Units, subcutaneous, Q12H KAMILAH metoprolol succinate XL, 12.5 mg, oral, Daily prasugreL HCl, 10 mg, oral, Daily sennosides-docusate sodium, 2 tablet, oral, BID sodium chloride, 3 mL, intravenous, Q12H sodium chloride, 3 mL, intravenous, Q12H spironolactone, 25 mg, oral, Daily thiamine HCl, 100 mg, oral, Daily valsartan, 40 mg, oral, BID Infusions: As Needed: acetaminophen acetaminophen-codeine acetaminophen-codeine calcium gluconate OR calcium gluconate OR calcium gluconate dextrose dextrose dextrose 50 % in water (D50W) diphenhydrAMINE glucagon (human recombinant) LORazepam magnesium sulfate OR magnesium sulfate morphine injection nicotine nitroglycerin polyethylene glycol potassium chloride OR potassium chloride potassium chloride in water OR potassium chloride in water sodium phosphate IV OR sodium phosphate IV - central line OR sod phos di, mono-K phos mono sodium chloride sodium chloride Allergies: Sulfa (sulfonamide antibiotics) Labs Recent Results (from the past 24 hours) CBC without diff Collection Time: 05/17/24 3:45 AM Result Value Ref Range White Blood Cells 7.0 4.0 - 11.0 X10E9/L RBC count 3.79 (L) 3.80 - 5.20 X10E12/L Hemoglobin 12.8 11.7 - 15.5 g/dL Hematocrit 36.6 35 - 47 % MCV 97 80 - 100 fL MCH 33.7 27 - 34 pg MCHC 34.9 32 - 36 g/dL RDW 13.3 11.5 - 15.0 % Platelets 388 150 - 450 X10E9/L MPV 7.7 7 - 12 fL Comprehensive metabolic panel Collection Time: 05/17/24 3:45 AM Result Value Ref Range Sodium 133 (L) 134 - 146 mmol/L Potassium, Bld 4.0 3.5 - 5.0 mmol/L Chloride 100 98 - 109 mmol/L CO2 23 22 - 32 mmol/L Anion gap 10 5 - 15 mmol/L BUN 12 5 - 27 mg/dL Creatinine 0.48 0.40 - 1.00 mg/dL Glucose 105 (H) 65 - 99 mg/dL Calcium 9.1 8.5 - 10.5 mg/dL Total Protein 6.8 6.0 - 8.0 g/dL Albumin 3.9 3.2 - 5.3 g/dL Alkaline Phosphatase 77 39 - 130 U/L AST 18 0 - 41 U/L ALT 16 0 - 31 U/L Total bilirubin 0.4 0.3 - 1.2 mg/dL eGFR (CKD-EPI)non-race dependent >90 >59 ml/min/1.73sq.m Magnesium Collection Time: 05/17/24 3:45 AM Result Value Ref Range Magnesium 2.1 1.8 - 2.6 mg/dL Phosphorus Collection Time: 05/17/24 3:45 AM Result Value Ref Range Phosphorus 4.3 2.4 - 4.9 mg/dL Ionized calcium Collection Time: 05/17/24 3:45 AM Result Value Ref Range Calcium, ionized 4.6 4.5 - 5.3 mg/dL Radiology Echo limited W/O contrast Result Date: 05/10/2024 Narrative: Left Ventricle: Left ventricle appears normal in size. Systolic function is severely decreased with an ejection fraction of 20-25%. Right Ventricle: Right ventricular size appears normal. Systolic function is normal. EEG Result Date: 05/10/2024 Narrative: Images from the original result were not included. [facility] EEG REPORT EEG Service Date: 05/10/24 Date of Report: 05/10/24 History: Alie Briones is a 63 y.o. female with hallucinations and memory loss who is undergoing EEG to evaluate for seizures. Centrally active medications: Buspar, diphenydramine, lorazepam, morphine. Procedure: This EEG was acquired with electrodes placed according to the [id number] electrode placement system. The EEG was acquired [...] of intermittent seizures. Kat Marquez M.D., Ph.D. Acoustical Tile Patternmaker [facility] Cardiac Invasive Result Date: 05/10/2024 Narrative: Successful staged revascularization of the 80% stenosis [...] aggressive medical management. Recommend follow-up with primary mainframe developer outpatient. Echo limited W/O contrast Result Date: 05/08/2024 Narrative: Left Ventricle: Left ventricle appears normal in size. Systolic function is moderately to severely decreased with an ejection fraction of 30-35%. Aortic Valve: There is no regurgitation or stenosis. Mitral Valve: There is [id number] regurgitation. There is no evidence of mitral valve stenosis. Tricuspid Valve: There is trace regurgitation. There is no evidence of tricuspid valve stenosis. Cardiac Invasive Result Date: 05/08/2024 Narrative: Successful placement of temporary pacing wire for [...] temporary pacemaker if rhythm stabilizes Electrophysiology consultation X-ray chest 1 view Result Date: 05/07/2024 Narrative: Single view chest XR CHEST 1 VW History: dizziness Comparison: June 30, 2022 Impression: * No consolidation or pleural fluid. No acute findings. Finalized by Nnamdi Amaro MD on 05/07/2024 2:[address] cervical spine without contrast Result Date: 05/07/2024 Narrative: CT CERVICAL SPINE WO CONT INDICATION: Fall, [...] Maximilian Link MD on 05/07/2024 2:45 PM X-ray pelvis 1 or 2 views Result Date: 05/07/2024 Narrative: XR PELVIS 1 OR 2 VWS fall Pelvic trauma Findings: There is grossly no fracture or destructive lesion. Impression: * No acute findings. * Consider MRI if you suspect occult process. Finalized by Nnamdi Amaro MD on 05/07/2024 2:[address] brain without contrast Result Date: 05/07/2024 Narrative: STUDY: CT HEAD WITHOUT CONTRAST CLINICAL HISTORY: [...] Nnamdi Amaro MD on 05/07/2024 2:42 PM HOSPITAL PROBLEM LIST Principal Problem: CHB (complete heart block) ([facility]) Active Problems: HTN (hypertension) ST elevation myocardial infarction (STEMI) ([facility]) Coronary artery disease involving [place] coronary artery of sk[place] heart Mixed hyperlipidemia ASSESSMENT & PLAN Complete heart block in setting of STEMI with recurrent syncope, resolved, now with LAFB/RBBB Electrophysiology signed off, no plans for pacemaker at this time. Recommended discharging with outpatient 30 day MCOT to evaluate for any further episodes of high-degree heart block. Can follow-up with EP for primary prevention ICD/OUTBOUND SUPERVISOR if EF remains less than 30% after 3 months of GDMT. Anterior STEMI CAD s/p PCI/GARETT pLAD 05/07/24 and staged PCI/GARETT OM2 on 05/09/24 Ischemic cardiomyopathy HFrEF 20-25% Essential hypertension, normotensive Mixed hyperlipidemia Cardiology following. Continued on aspirin, Effient, Lipitor, Toprol, valsartan, Farxiga, Aldactone, Diovan. LifeVest in place Follow up with Cardiology outpatient Hypovolemic hyponatremia Nephrology signed off Sodium stable Continue fluid restriction. Acute encephalopathy, likely toxic metabolic Alcoholism Opiate/substance abuse Neurology following EEG has been normal. DC CIWA protocol. On PO thiamine, folic acid. Neurology also recommended outpatient MRI of cervical and lumbar spines for further evaluation of ruling out possible myeloradiculopathy contributing to patient's initial fall. DC planning: DC to SNF, medically cleared after life vest fitting. MARCIAL Casey 05/17/2024 2:47 PM [facility] Internal Medicine 7AM-7PM & 7PM-7AM: EpicChat or page through On[employer]. MARCIAL Palacios 05/17/24 1451 I, Konrad Mix MD, personally performed the face to face diagnostic evaluation on this patient. I have reviewed the LOBITO's History, Exam, and MDM and agree with the assessment and plan as written. Cardiac Rehab Type of Visit: Refused (see comments) (Pt is currently asleep and would like to rest. I will follow up with pt.) Assessment Vitals: 05/17/24 0805 05/17/24 0811 05/17/24 1204 Pulse: 81 77 Heart Rate Source: Monitor Monitor Resp: 16 14 BP: 94/50 112/64 BP Location: Left arm Left arm BP Method: Automatic Automatic Patient Position: SpO2: 97% 98% O2 Device: None (Room air) None (Room air) None (Room air) O2 Flow Rate (L/min): 0 L/min 0 L/min Physical Therapy Treatment Discharge Recommendations PT Recommendations: Usp Facility Therapy Plan 6 Clicks: Basic Mobility Turning from your [...] Score: 18 CMS G Code Modifier: CK PT Treatment/Interventions: LE strengthening/ROM, Endurance training, Gait training, Bed mobility, UE strengthening/ROM Patient Response to Treatment: Progressing toward goals Assessment Patient Assessment Patient Response to Treatment: Progressing toward goals Visit RN Communication: Yes Medical Record Reviewed: Yes PT Type of Visit: Treatment Precautions Activity: Okay to see per RN. Equipment: Gait belt, RW, chair alarm, bed alarm Telemetry/Top Flavor Attendant: Yes Other Cardiac Monitoring Devices: Cardiac Life Vest Other: High fall risk, h/o falls, CIWA protocol, delirium/dementia precautions, 1500mL fluid restriction, bed/chair alarm Pain Assessment Pain Assessment: No/denies pain Bed Mobility Rolling: Stand by assist Supine to Sit: Stand by assist Other: Pt in bed upon arrival. Pt was able to complete bed mobility at A for safety. Pt left seated in chair with chair alarm on and call light in reach. Transfers Sit to Stand: Contact guard assist Stand to Sit: Contact guard assist Toilet Transfers: Contact guard assist Other: Pt completed STS transfer with RW for BUE support at [facility] for safety. Multiple verbal cues needed for proper hand placement and stay with in the RW. Slight unsteadiness noted but no LOB. Gait Base of Support: Narrow Pattern: Decreased leydi Gait Assistance: Contact guard assist Assistive Device: Rolling walker Gait Distance: 70ft x2 plus 10ft Limiting Factors to Gait: Fatigue, Weakness, Decreased safety Other: Pt ambulated within halls at [facility] for safety. Pt used RW for BUE support when ambulating. Pt dends to take hands of RW causing unsteadines at times. Multpile cues needed to stay within the walker for safety. No LOB noted. Balance Balance Evaluation: Exceptions to Functional Limits Sitting Balance: Static: Good Sitting Balance: Dynamic: Good Standing Balance: Static: Fair Standing Balance: Dynamic: Fair Other: Use of RW for BUE support during ambulation and transfers with slight unsteadiness but no LOB Activity Tolerance Endurance: Tolerates >30 minutes activity with rest breaks Other: Pt limited d/t weakness and fatigue. Increased time and effort to complete activity with rest breaks as needed. Cues needed to stay on track. Plan Physical Therapy Care Plan Physical Therapy Care Plan (Active) Template: PT - Physical Therapy Problem: Activity Tolerance Dates: Start: 05/11/24 Disciplines: PT Goal: Tolerate > 30 minutes of activity WITH rest breaks Dates: Start: 05/11/24 Expected End: 05/31/24 Description: Goal Description: Disciplines: PT Outcomes Date/Time User Outcome 05/17/24 1000 Hannah Sue, Student INTERNATIONAL STUDENT COUNSELOR Progressing 05/15/24 114Ivanna Mitchell, INTERNATIONAL STUDENT COUNSELOR Progressing 05/13/24 1259 Ivanna Murray INTERNATIONAL STUDENT COUNSELOR Progressing Goal Note filed on 05/17/24 1000 by Hannah Sue Student INTERNATIONAL STUDENT COUNSELOR Evaluation of progress towards goal: Problem: Bed Mobility Dates: Start: 05/11/24 Disciplines: PT Goal: Patient will perform bed mobility with Modified [place] Dates: Start: 05/11/24 Expected End: 05/31/24 Description: Goal Description: with proper BUE placement and sequencing Disciplines: PT Outcomes Date/Time User Outcome 05/17/24 1000 Hannah Sue, Student INTERNATIONAL STUDENT COUNSELOR Progressing 05/13/24 1259 Ivanna Murray PTA Progressing Goal Note filed on 05/17/24 1000 by Hannah Sue Student INTERNATIONAL STUDENT COUNSELOR Evaluation of progress towards goal: Problem: Gait Dates: Start: 05/11/24 Disciplines: PT Goal: Patient will perform gait with Modified [place] Dates: Start: 05/11/24 Expected End: 05/31/24 Description: With__RW__,__100__feet Goal Description: with proper gait pattern and safety awareness Disciplines: PT Outcomes Date/Time User Outcome 05/17/24 1000 Hannah Sue, Student INTERNATIONAL STUDENT COUNSELOR Progressing 05/15/24 1140 Rashi Mitchell INTERNATIONAL STUDENT COUNSELOR Progressing 05/13/24 1259 Ivnanawinter Murray, INTERNATIONAL STUDENT COUNSELOR Progressing Goal Note filed on 05/17/24 1000 by Hannah Sue, Student INTERNATIONAL STUDENT COUNSELOR Evaluation of progress towards goal: Problem: Stairs/Curb Dates: Start: 05/11/24 Disciplines: PT Goal: Patient will perform stairs/curb with Modified [place] Dates: Start: 05/11/24 Expected End: 05/31/24 Description: __3___steps,__w/o___hand rails Goal Description: for safer entry into home Disciplines: PT Outcomes Date/Time User Outcome 05/17/24 1000 Hannah Sue Student INTERNATIONAL STUDENT COUNSELOR Progressing Goal Note filed on 05/17/24 1000 by Hannah Sue, Student INTERNATIONAL STUDENT COUNSELOR Evaluation of progress towards goal: Problem: Standing Balance Dates: Start: 05/11/24 Disciplines: PT Goal: Improve balance to normal Dates: Start: 05/11/24 Expected End: 05/31/24 Description: Static/Dynamic to reduce risk of falls with all functional tasks Disciplines: PT Outcomes Date/Time User Outcome 05/17/24 1000 Hannah Sue Student INTERNATIONAL STUDENT COUNSELOR Progressing 05/15/24 1140 Rashi Mitchell, INTERNATIONAL STUDENT COUNSELOR Progressing 05/14/24 0946 Hannah Sue Student INTERNATIONAL STUDENT COUNSELOR Progressing 05/13/24 1259 Ivanna Murray, INTERNATIONAL STUDENT COUNSELOR Progressing Goal Note filed on 05/17/24 1000 by Hannah Sue, Student INTERNATIONAL STUDENT COUNSELOR Evaluation of progress towards goal: Problem: Strength Dates: Start: 05/11/24 Disciplines: PT Goal: Improve strength Dates: Start: 05/11/24 Expected End: 05/31/24 Description: Of extremity/ location: BLE strength to WFL To facilitate: Safer functional mobility tasks Disciplines: PT Outcomes Date/Time User Outcome 05/17/24 1000 Hannah Sue, Student INTERNATIONAL STUDENT COUNSELOR Progressing 05/15/24 1140 Rashi Mitchell, INTERNATIONAL STUDENT COUNSELOR Progressing 05/14/24 0946 Hannah Sue, Student INTERNATIONAL STUDENT COUNSELOR Progressing 05/13/24 1259 Ivanna Murray PTA Progressing Goal Note filed on 05/17/24 1000 by Urvashi Hartmann PTA Evaluation of progress towards goal: Problem: Transfers Dates: Start: 05/11/24 Disciplines: PT Goal: Patient will perform transfers with Modified [place] Dates: Start: 05/11/24 Expected End: 05/31/24 Description: Goal Description: with proper BUE placement and sequencing Disciplines: PT Outcomes Date/Time User Outcome 05/17/24 1000 Urvashi Hartmann INTERNATIONAL STUDENT COUNSELOR Progressing 05/15/24 1140 Rashi Mitchell PTA Progressing 05/13/24 1259 Ivanna Murray PTA Progressing Goal Note filed on 05/17/24 1000 by Urvashi Hartmann PTA Evaluation of progress towards goal: Physical Therapy Care Plan (Resolved) There are no resolved problems. Principal Problem: CHB (complete heart block) ([facility]) Active Problems: HTN (hypertension) ST elevation myocardial infarction (STEMI) ([facility]) Coronary artery disease involving [place] coronary artery of [place] heart Mixed hyperlipidemia Cosigned by Janae Shaffer PT at 05/17/2024 3:34 PM EDT Associated attestation - Janae Shaffer, PT - 05/17/2024 3:34 PM EDT I have reviewed and agree with this note and education documentation for this visit. Images from the original note were not included. [facility] INTERNAL MEDICINE [facility] [address] ACUTE [address] [facility] [id number] Hospital Medicine Progress Note Patient: Alie Briones Date of : 1960 Room: [place] [address] PCP: ROSITA Lance Admission date: 05/07/2024 3:54 PM Encounter date: 05/16/24 Hospital Day: 10 SUBJECTIVE Chief complaints: No chief complaint on file. Interval History: Resting in bed, patient remains medically ready for discharge at this time. Discussed with Care navigation who states she has been declined for multiple facilities due to her LifeVest, they continue to work on placement. Review of Systems Constitutional: Negative for activity change, appetite change, fatigue and unexpected weight change. HENT: Negative for trouble swallowing. Respiratory: Negative for cough, sputum production, shortness of breath and wheezing. Cardiovascular: Negative for chest pain, palpitations and leg swelling. Gastrointestinal: Negative for abdominal pain, blood in stool, melena, constipation, diarrhea, nausea and vomiting. Genitourinary: Negative for difficulty urinating. Skin: Negative for color change and wound. Neurological: Negative for dizziness, seizures, speech difficulty and headaches. Positive for confusion Psychiatric/Behavioral: Negative for sleep disturbance. OBJECTIVE BP 90/42 Pulse 76 Temp 36.8 C (98.2 F) (Oral) Resp 19 Ht 152.4 cm (5') Wt 41.4 kg (91 lb 4.3 oz) SpO2 100% BMI 17.83 kg/m Temp: [36.7 C (98 F)-37 C (98.6 F)] 36.8 C (98.2 F) Pulse: [67-81] 76 Resp: [18-19] 19 BP: (90-133)/(42-74) 90/42 SpO2: [93 %-100 %] 100 % O2 Device: None (Room air) O2 Flow Rate (L/min): [0 L/min] 0 L/min Intake/Output Summary (Last 24 hours) at 05/16/2024 1237 Last data filed at 05/16/2024 1223 Gross per 24 hour Intake 1620 ml Output 1000 ml Net 620 ml Physical Exam Constitutional: General: No acute distress. Cardiovascular: Rate and Rhythm: Normal rate and regular rhythm. Heart sounds: Normal heart sounds, S1 normal and S2 normal. Pulmonary: Effort: Pulmonary effort is normal. Breath sounds: Normal breath sounds. Abdominal: General: Bowel sounds are normal. Palpations: Abdomen is soft. Tenderness: There is no abdominal tenderness. Musculoskeletal: Right lower leg: No edema. Left lower leg: No edema. Skin: General: Skin is warm and dry. Coloration: Skin is not pale. Neurological: General: No focal deficit present. Alert, oriented to person, place Psychiatric: Mood and Affect: Mood normal. Behavior: Behavior normal. Medications Scheduled: aspirin, 81 mg, oral, Daily atorvastatin, 80 mg, oral, Nightly busPIRone, 10 mg, oral, BID dapagliflozin propanediol, 10 mg, oral, Daily DULoxetine, 60 mg, oral, Daily folic acid, 1 mg, oral, Daily gabapentin, 300 mg, oral, 4x Daily heparin (porcine), 5,000 Units, subcutaneous, Q12H KAMILAH metoprolol succinate XL, 12.5 mg, oral, Daily prasugreL HCl, 10 mg, oral, Daily sennosides-docusate sodium, 2 tablet, oral, BID sodium chloride, 3 mL, intravenous, Q12H sodium chloride, 3 mL, intravenous, Q12H spironolactone, 25 mg, oral, Daily thiamine HCl, 100 mg, oral, Daily valsartan, 40 mg, oral, BID Infusions: As Needed: acetaminophen acetaminophen-codeine acetaminophen-codeine calcium gluconate OR calcium gluconate OR calcium gluconate dextrose dextrose dextrose 50 % in water (D50W) diphenhydrAMINE glucagon (human recombinant) LORazepam magnesium sulfate OR magnesium sulfate morphine injection nicotine nitroglycerin polyethylene glycol potassium chloride OR potassium chloride potassium chloride in water OR potassium chloride in water sodium phosphate IV OR sodium phosphate IV - central line OR sod phos di, mono-K phos mono sodium chloride sodium chloride Allergies: Sulfa (sulfonamide antibiotics) Labs Recent Results (from the past 24 hours) CBC without diff Collection Time: 05/16/24 3:57 AM Result Value Ref Range White Blood Cells 7.3 4.0 - 11.0 X10E9/L RBC count 3.51 (L) 3.80 - 5.20 X10E12/L Hemoglobin 11.9 11.7 - 15.5 g/dL Hematocrit 33.4 (L) 35 - 47 % MCV 95 80 - 100 fL MCH 33.7 27 - 34 pg MCHC 35.4 32 - 36 g/dL RDW 12.8 11.5 - 15.0 % Platelets 394 150 - 450 X10E9/L MPV 8.1 7 - 12 fL Comprehensive metabolic panel Collection Time: 05/16/24 3:57 AM Result Value Ref Range Sodium 133 (L) 134 - 146 mmol/L Potassium, Bld 4.0 3.5 - 5.0 mmol/L Chloride 98 98 - 109 mmol/L CO2 25 22 - 32 mmol/L Anion gap 10 5 - 15 mmol/L BUN 13 5 - 27 mg/dL Creatinine 0.45 0.40 - 1.00 mg/dL Glucose 95 65 - 99 mg/dL Calcium 9.3 8.5 - 10.5 mg/dL Total Protein 6.9 6.0 - 8.0 g/dL Albumin 3.7 3.2 - 5.3 g/dL Alkaline Phosphatase 78 39 - 130 U/L AST 17 0 - 41 U/L ALT 22 0 - 31 U/L Total bilirubin 0.4 0.3 - 1.2 mg/dL eGFR (CKD-EPI)non-race dependent >90 >59 ml/min/1.73sq.m Magnesium Collection Time: 05/16/24 3:57 AM Result Value Ref Range Magnesium 2.0 1.8 - 2.6 mg/dL Phosphorus Collection Time: 05/16/24 3:57 AM Result Value Ref Range Phosphorus 4.3 2.4 - 4.9 mg/dL Ionized calcium Collection Time: 05/16/24 3:57 AM Result Value Ref Range Calcium, ionized 4.5 4.5 - 5.3 mg/dL Radiology Echo limited W/O contrast Result Date: 05/10/2024 Narrative: Left Ventricle: Left ventricle appears normal in size. Systolic function is severely decreased with an ejection fraction of 20-25%. Right Ventricle: Right ventricular size appears normal. Systolic function is normal. EEG Result Date: 05/10/2024 Narrative: Images from the original result were not included. [facility] EEG REPORT EEG Service Date: 05/10/24 Date of Report: 05/10/24 History: Alie Briones is a 63 y.o. female with hallucinations and memory loss who is undergoing EEG to evaluate for seizures. Centrally active medications: Buspar, diphenydramine, lorazepam, morphine. Procedure: This EEG was acquired with electrodes placed according to the [id number] electrode placement system. The EEG was acquired [...] of intermittent seizures. Kat Marquez M.D., Ph.D. [employer] [facility] Cardiac Invasive Result Date: 05/10/2024 Narrative: Successful staged revascularization of the 80% stenosis [...] aggressive medical management. Recommend follow-up with primary mainframe developer outpatient. Echo limited W/O contrast Result Date: 05/08/2024 Narrative: Left Ventricle: Left ventricle appears normal in size. Systolic function is moderately to severely decreased with an ejection fraction of 30-35%. Aortic Valve: There is no regurgitation or stenosis. Mitral Valve: There is mywvu-im-yity regurgitation. There is no evidence of mitral valve stenosis. Tricuspid Valve: There is trace regurgitation. There is no evidence of tricuspid valve stenosis. Cardiac Invasive Result Date: 05/08/2024 Narrative: Successful placement of temporary pacing wire for [...] temporary pacemaker if rhythm stabilizes Electrophysiology consultation X-ray chest 1 view Result Date: 05/07/2024 Narrative: Single view chest XR CHEST 1 VW History: dizziness Comparison: June 30, 2022 Impression: * No consolidation or pleural fluid. No acute findings. Finalized by Nnamdi Amaro MD on 05/07/2024 2:[address] cervical spine without contrast Result Date: 05/07/2024 Narrative: CT CERVICAL SPINE WO CONT INDICATION: Fall, [...] Maximilian Link MD on 05/07/2024 2:45 PM X-ray pelvis 1 or 2 views Result Date: 05/07/2024 Narrative: XR PELVIS 1 OR 2 VWS fall Pelvic trauma Findings: There is grossly no fracture or destructive lesion. Impression: * No acute findings. * Consider MRI if you suspect occult process. Finalized by Nnamdi Amaro MD on 05/07/2024 2:[address] brain without contrast Result Date: 05/07/2024 Narrative: STUDY: CT HEAD WITHOUT CONTRAST CLINICAL HISTORY: [...] Nnamdi Amaro MD on 05/07/2024 2:42 PM HOSPITAL PROBLEM LIST Principal Problem: CHB (complete heart block) ([facility]) Active Problems: HTN (hypertension) ST elevation myocardial infarction (STEMI) ([facility]) Coronary artery disease involving skagway coronary artery of skagway heart Mixed hyperlipidemia ASSESSMENT & PLAN Complete heart block in setting of STEMI with recurrent syncope, resolved, now with LAFB/RBBB Electrophysiology signed off, no plans for pacemaker at this time. Recommended discharging with outpatient 30 day MCOT to evaluate for any further episodes of high-degree heart block. Can follow-up with EP for primary prevention ICD/OUTBOUND SUPERVISOR if EF remains less than 30% after 3 months of GDMT. Anterior STEMI CAD s/p PCI/GARETT pLAD 05/07/24 and staged PCI/GARETT OM2 on 05/09/24 Ischemic cardiomyopathy HFrEF 20-25% Essential hypertension, normotensive Mixed hyperlipidemia Cardiology following. Continued on aspirin, Effient, Lipitor, Toprol, valsartan, Farxiga, Aldactone, Diovan. LifeVest in place Follow up with Cardiology outpatient Hypovolemic hyponatremia Nephrology signed off Sodium stable Continue fluid restriction. Acute encephalopathy, likely toxic metabolic Alcoholism Opiate/substance abuse Neurology following EEG has been normal. DC CIWA protocol. On IV thiamine. Neurology also recommended outpatient MRI of cervical and lumbar spines for further evaluation of ruling out possible myeloradiculopathy contributing to patient's initial fall. DC planning: DC to SNF, medically cleared after life vest fitting. MARCIAL Casey 05/16/2024 12:37 PM [facility] Internal Medicine 7AM-7PM & 7PM-7AM: EpicChat or page through On-Call Finder. MARCIAL Palacios 05/16/24 9902 IKonrad MD, personally performed the face to face diagnostic evaluation on this patient. I have reviewed the LOBITO's History, Exam, and MDM and agree with the assessment and plan as written. Cardiac Rehab Discharge Recommendations Post Discharge Therapy Recommendations: Outpatient Cardiac Rehabilitation Therapy Plan Patient Response to Treatment: Progressing toward goals Rehab Prognosis: Good Subjective Pt states to be doing well today. Pt is still slightly confused. Pt denies CP,SOB, nausea, or dizziness. Pt has been re-educated on the benefits of the outpatient cardiac program. I will follow up with pt. Objective Procedure: GARETT x2 - Prox LAD (100%-0%) - OM2 (85%-0%) - Distal CX (40%) Medical History: HTN CAD HLD Back pain Neck pain +smoker +FH- CAD Assessment Vitals: 05/16/24 0320 05/16/24 0757 05/16/24 0925 Pulse: 79 70 81 Heart Rate Source: Monitor Monitor Monitor Resp: 19 BP: 109/71 93/46 BP Location: Left arm Right arm BP Method: Automatic Automatic Patient Position: Sitting SpO2: 93% 96% 95% O2 Device: None (Room air) None (Room air) None (Room air) O2 Flow Rate (L/min): 0 L/min 0 L/min Cardiac Cardiac Rhythm: Normal sinus rhythm Cardiac Regularity: Regular Cardiac Symptoms: None Bedside Monitoring : Telemetry Monitoring Interventions: Maintained Pain Assessment Pain Assessment: No/denies pain Cognition Orientation Level: Disoriented to place, Disoriented to month, Oriented to person, Oriented to age Safety Judgment: Decreased awareness of need for assistance, Decreased awareness of need for safety Bed Mobility Rolling: Supervision Supine to Sit: Supervision Transfers Sit to Stand: Supervision Stand to Sit: Supervision Gait Base of Support: Narrow Pattern: Decreased leydi Gait Assistance: Supervision Assistive Device: Rolling walker Gait Distance: 400' Images from the original note were not included. [facility] INTER[facility] [address] ACUTE [address] [facility] [id number] [facility] Medicine Progress Note Patient: Alie Briones Date of : 1960 Room: [facility]/01 PCP: ROSITA Lance Admission date: 05/07/2024 3:54 PM Encounter date: 05/15/24 Hospital Day: 9 SUBJECTIVE Chief complaints: No chief complaint on file. Interval History: Resting in bed, awaiting residential facility placement, remains medically ready for discharge at this time. Review of Systems Constitutional: Negative for activity change, appetite change, fatigue and unexpected weight change. HENT: Negative for trouble swallowing. Respiratory: Negative for cough, sputum production, shortness of breath and wheezing. Cardiovascular: Negative for chest pain, palpitations and leg swelling. Gastrointestinal: Negative for abdominal pain, blood in stool, melena, constipation, diarrhea, nausea and vomiting. Genitourinary: Negative for difficulty urinating. Skin: Negative for color change and wound. Neurological: Negative for dizziness, seizures, speech difficulty and headaches. Confusion Psychiatric/Behavioral: Negative for sleep disturbance. OBJECTIVE BP 113/62 Pulse 81 Temp 37 C (98.6 F) (Oral) Resp 18 Ht 152.4 cm (5') Wt 43.1 kg (95 lb 0.3 oz) SpO2 98% BMI 18.56 kg/m Temp: [36.8 C (98.2 F)-37 C (98.6 F)] 37 C (98.6 F) Pulse: [68-81] 81 Resp: [18-19] 18 BP: (106-119)/(60-81) 113/62 SpO2: [97 %-100 %] 98 % O2 Device: None (Room air) O2 Flow Rate (L/min): [0 L/min] 0 L/min Intake/Output Summary (Last 24 hours) at 05/15/2024 1638 Last data filed at 05/15/2024 1402 Gross per 24 hour Intake 450 ml Output 1600 ml Net -1150 ml Physical Exam Constitutional: General: No acute distress. Cardiovascular: Rate and Rhythm: Normal rate and regular rhythm. Heart sounds: Normal heart sounds, S1 normal and S2 normal. Pulmonary: Effort: Pulmonary effort is normal. Breath sounds: Normal breath sounds. Abdominal: General: Bowel sounds are normal. Palpations: Abdomen is soft. Tenderness: There is no abdominal tenderness. Musculoskeletal: Right lower leg: No edema. Left lower leg: No edema. Skin: General: Skin is warm and dry. Coloration: Skin is not pale. Neurological: General: No focal deficit present. Alert, oriented to person, place Psychiatric: Mood and Affect: Mood normal. Behavior: Behavior normal. Medications Scheduled: aspirin, 81 mg, oral, Daily atorvastatin, 80 mg, oral, Nightly busPIRone, 10 mg, oral, BID dapagliflozin propanediol, 10 mg, oral, Daily DULoxetine, 60 mg, oral, Daily folic acid, 1 mg, oral, Daily gabapentin, 300 mg, oral, 4x Daily heparin (porcine), 5,000 Units, subcutaneous, Q12H KAMILAH metoprolol succinate XL, 12.5 mg, oral, Daily prasugreL HCl, 10 mg, oral, Daily sennosides-docusate sodium, 2 tablet, oral, BID sodium chloride, 3 mL, intravenous, Q12H sodium chloride, 3 mL, intravenous, Q12H spironolactone, 25 mg, oral, Daily thiamine HCl, 100 mg, oral, Daily valsartan, 40 mg, oral, BID Infusions: As Needed: acetaminophen acetaminophen-codeine acetaminophen-codeine calcium gluconate OR calcium gluconate OR calcium gluconate dextrose dextrose dextrose 50 % in water (D50W) diphenhydrAMINE glucagon (human recombinant) LORazepam magnesium sulfate OR magnesium sulfate morphine injection nicotine nitroglycerin polyethylene glycol potassium chloride OR potassium chloride potassium chloride in water OR potassium chloride in water sodium phosphate IV OR sodium phosphate IV - central line OR sod phos di, mono-K phos mono sodium chloride sodium chloride Allergies: Sulfa (sulfonamide antibiotics) Labs Recent Results (from the past 24 hours) CBC without diff Collection Time: 05/15/24 5:26 AM Result Value Ref Range White Blood Cells 8.4 4.0 - 11.0 X10E9/L RBC count 3.97 3.80 - 5.20 X10E12/L Hemoglobin 13.5 11.7 - 15.5 g/dL Hematocrit 38.1 35 - 47 % MCV 96 80 - 100 fL MCH 33.9 27 - 34 pg MCHC 35.3 32 - 36 g/dL RDW 12.9 11.5 - 15.0 % Platelets 426 150 - 450 X10E9/L MPV 8.1 7 - 12 fL Comprehensive metabolic panel Collection Time: 05/15/24 5:26 AM Result Value Ref Range Sodium 135 134 - 146 mmol/L Potassium, Bld 3.9 3.5 - 5.0 mmol/L Chloride 99 98 - 109 mmol/L CO2 27 22 - 32 mmol/L Anion gap 9 5 - 15 mmol/L BUN 6 5 - 27 mg/dL Creatinine 0.46 0.40 - 1.00 mg/dL Glucose 92 65 - 99 mg/dL Calcium 9.8 8.5 - 10.5 mg/dL Total Protein 7.4 6.0 - 8.0 g/dL Albumin 4.2 3.2 - 5.3 g/dL Alkaline Phosphatase 93 39 - 130 U/L AST 27 0 - 41 U/L ALT 22 0 - 31 U/L Total bilirubin 0.5 0.3 - 1.2 mg/dL eGFR (CKD-EPI)non-race dependent >90 >59 ml/min/1.73sq.m Magnesium Collection Time: 05/15/24 5:26 AM Result Value Ref Range Magnesium 2.1 1.8 - 2.6 mg/dL Phosphorus Collection Time: 05/15/24 5:26 AM Result Value Ref Range Phosphorus 3.9 2.4 - 4.9 mg/dL Ionized calcium Collection Time: 05/15/24 5:26 AM Result Value Ref Range Calcium, ionized 5.0 4.5 - 5.3 mg/dL Radiology Echo limited W/O contrast Result Date: 05/10/2024 Narrative: Left Ventricle: Left ventricle appears normal in size. Systolic function is severely decreased with an ejection fraction of 20-25%. Right Ventricle: Right ventricular size appears normal. Systolic function is normal. EEG Result Date: 05/10/2024 Narrative: Images from the original result were not included. [facility] EEG REPORT EEG Service Date: 05/10/24 Date of Report: 05/10/24 History: Alie Birones is a 63 y.o. female with hallucinations and memory loss who is undergoing EEG to evaluate for seizures. Centrally active medications: Buspar, diphenydramine, lorazepam, morphine. Procedure: This EEG was acquired with electrodes placed according to the [id number] electrode placement system. The EEG was acquired [...] of intermittent seizures. Kat Marquez M.D., Ph.D. [employer] [facility] Cardiac Invasive Result Date: 05/10/2024 Narrative: Successful staged revascularization of the 80% stenosis [...] aggressive medical management. Recommend follow-up with primary mainframe developer outpatient. Echo limited W/O contrast Result Date: 05/08/2024 Narrative: Left Ventricle: Left ventricle appears normal in size. Systolic function is moderately to severely decreased with an ejection fraction of 30-35%. Aortic Valve: There is no regurgitation or stenosis. Mitral Valve: There is nktaj-am-sujh regurgitation. There is no evidence of mitral valve stenosis. Tricuspid Valve: There is trace regurgitation. There is no evidence of tricuspid valve stenosis. Cardiac Invasive Result Date: 05/08/2024 Narrative: Successful placement of temporary pacing wire for [...] temporary pacemaker if rhythm stabilizes Electrophysiology consultation X-ray chest 1 view Result Date: 05/07/2024 Narrative: Single view chest XR CHEST 1 VW History: dizziness Comparison: June 30, 2022 Impression: * No consolidation or pleural fluid. No acute findings. Finalized by Nnamdi Amaro MD on 05/07/2024 2:[address] cervical spine without contrast Result Date: 05/07/2024 Narrative: CT CERVICAL SPINE WO CONT INDICATION: Fall, [...] Maximilian Link MD on 05/07/2024 2:45 PM X-ray pelvis 1 or 2 views Result Date: 05/07/2024 Narrative: XR PELVIS 1 OR 2 VWS fall Pelvic trauma Findings: There is grossly no fracture or destructive lesion. Impression: * No acute findings. * Consider MRI if you suspect occult process. Finalized by Nnamdi Amaro MD on 05/07/2024 2:[address] brain without contrast Result Date: 05/07/2024 Narrative: STUDY: CT HEAD WITHOUT CONTRAST CLINICAL HISTORY: [...] Nnamdi Amaro MD on 05/07/2024 2:42 PM HOSPITAL PROBLEM LIST Principal Problem: CHB (complete heart block) ([facility] Active Problems: HTN (hypertension) ST elevation myocardial infarction (STEMI) ([facility]) Coronary artery disease involving skagway coronary artery of skagway heart Mixed hyperlipidemia ASSESSMENT & PLAN Complete heart block in setting of STEMI with recurrent syncope, resolved, now with LAFB/RBBB Electrophysiology signed off, no plans for pacemaker at this time. Recommended discharging with outpatient 30 day MCOT to evaluate for any further episodes of high-degree heart block. Can follow-up with EP for primary prevention ICD/OUTBOUND SUPERVISOR if EF remains less than 30% after 3 months of GDMT. Anterior STEMI CAD s/p PCI/GARETT pLAD 05/07/24 and staged PCI/GARETT OM2 on 05/09/24 Ischemic cardiomyopathy HFrEF 20-25% Essential hypertension, normotensive Mixed hyperlipidemia Cardiology following. Continued on aspirin, Effient, Lipitor, Toprol, valsartan, Farxiga, Aldactone, Diovan. LifeVest in place Follow up with Cardiology outpatient Hypovolemic hyponatremia Nephrology signed off Sodium stable Continue fluid restriction. Acute encephalopathy, likely toxic metabolic Alcoholism Opiate/substance abuse Neurology following EEG has been normal. DC CIWA protocol. On IV thiamine. Neurology also recommended outpatient MRI of cervical and lumbar spines for further evaluation of ruling out possible myeloradiculopathy contributing to patient's initial fall. DC planning: DC to SNF, medically cleared after life vest fitting. MARCIAL Casey 05/15/2024 4:38 PM [facility] 7AM-7PM & 7PM-7AM: EpicChat or page through On-Call Finder. MARCIAL Palacios 05/15/24 1640 I, Konrad Mix MD, personally performed the face to face diagnostic evaluation on this patient. I have reviewed the LOBITO's History, Exam, and MDM and agree with the assessment and plan as written. Cardiac Rehab Discharge Recommendations Post Discharge Therapy Recommendations: Outpatient Cardiac Rehabilitation Therapy Plan Patient Response to Treatment: Progressing toward goals Rehab Prognosis: Good Subjective Pt states to be doing okay. Pt seems to have short term memory loss. Pt can be confused at times. Pt is on a bed/chair alarm and pt still gets up with help. I has been able to ambulate around the room with staff. Pt denies CP, SOB, nausea, or dizziness. Re-educated pt on the benefits of cardiac rehab. I will follow up with pt. Objective Procedure: GARETT x2 - Prox LAD (100%-0%) - OM2 (85%-0%) - Distal CX (40%) Medical History: HTN CAD HLD Back pain Neck pain +smoker +FH- CAD Assessment Vitals: 05/15/24 0810 05/15/24 1107 05/15/24 1430 Pulse: 68 81 Heart Rate Source: Monitor Monitor Resp: 18 BP: 113/62 BP Location: Right arm BP Method: Automatic Patient Position: Sitting SpO2: 100% 98% O2 Device: None (Room air) None (Room air) None (Room air) O2 Flow Rate (L/min): 0 L/min Cardiac Cardiac Rhythm: Normal sinus rhythm Cardiac Regularity: Regular Cardiac Symptoms: None Bedside Monitoring : Telemetry Monitoring Interventions: Maintained Pain Assessment Pain Assessment: No/denies pain Cognition Safety Judgment: Decreased awareness of need for assistance, Decreased awareness of need for safety Bed Mobility Rolling: Unable to assess Supine to Sit: Unable to assess Sit to Supine: Unable to assess Transfers Sit to Stand: Supervision Stand to Sit: Supervision Gait Base of Support: Narrow Pattern: Decreased leydi Gait Assistance: Standby assist Assistive Device: None Gait Distance: 20' (ambulating around room) Images from the original note were not included. NEPHROLOGY PROGRESS NOTE Assessment Hypotonic hyponatremia sodium levels now improved with fluid resuscitation. Complete heart block status post temporary pacemaker wire placement, cardiology managing Hypertension, blood pressure currently controlled STEMI status post PCI to the LAD performed 05/07/2024 with subsequent PCI to the 2nd obtuse margin performed 05/09/2024 Chronic systolic congestive heart failure EF of 30-35%, currently compensated, patient received LifeVest Plan Encourage oral intake Renal panel daily Strict I&Os Given stability in renal function, Nephrology will sign off please call back if any further questions. Thank you for allowing us to participate in the care of the patient. Does not need a Nephrology follow-up on discharge. Subjective/ interval history Patient seen and examined at bedside. On room air. Appetite stable. Weight is continuing to improve. 900 cc of urine output documented over the last 24 hours. Problem List Hypovolemic hyponatremia in the setting of complete heart block and hypotension. Uric acid was 3.7, TSH 1.49 and free T4 was 1.07, cortisol was 15.2, serum osmolality was 256, random urine sodium was less than 10 and random urine osmolality was 353 Complete heart block status post temporary pacing wire placement on May 07, 2024 ST-elevation [facility] from April of 2024 status post cardiac catheterization with stenting to the LAD on May 07, 2024 NSAIDs subsequent stage revascularization of 80% of the 2nd obtuse marginal with a drug-eluting stent on May 09, 2024. Cardiac catheterization on May 07, 2024 revealed severe diffuse disease of the LAD with moderate calcification and 100% stenosis of the proximal LAD to mid LAD which was successfully stented, 40% mid to distal left circumflex, 85% 2nd obtuse marginal and 20% proximal to mid RCA stenosis. Hypertension Asthma Degenerative joint disease Chronic back pain TMJ dysfunction Multiple cervical spine steroid injections and radiofrequency ablation for chronic neck pain. Tonsillectomy Left-sided rotator cuff repair Echocardiogram from April of 2024 revealed ejection fraction of 30-35% with trace to mild mitral regurgitation and trace tricuspid regurgitation. Physical Exam Admission Weight: Weight: 47.1 kg (103 lb 13.4 oz) I/O last 3 completed shifts: In: 2198.8 [P.O.:1800; IV Piggyback:398.8] Out: 2400 [Urine:2400] Weight change: -0.8 kg (-1 lb 12.2 oz) Wt Readings from Last 3 Encounters: 05/14/24 42.6 kg (93 lb 14.7 oz) 06/30/22 55.7 kg (122 lb 14.4 oz) 06/09/22 54.4 kg (120 lb) Vitals: Vitals: 05/14/24 0301 05/14/24 0744 05/14/24 1100 05/14/24 1159 BP: 119/58 111/50 103/49 Pulse: 71 68 80 Resp: 19 16 17 Temp: 36.6 C (97.9 F) 36.9 C (98.4 F) 37 C (98.6 F) 37 C (98.6 F) TempSrc: Oral Oral Oral SpO2: 99% 95% 99% Weight: Height: General: Alert, oriented x 3 and in no obvious distress Psychiatric: Has a normal mood and affect. HEENT: Head normocephalic. Eyes: Conjunctivae and EOM are normal. Pupils are equal, round and reactive to light. Cardiovascular: Normal rate, regular rhythm and normal heart sounds. No JVD. Pulmonary/Chest: Air entry bilaterally equal. No wheezes or rales. Abdominal: Soft, bowel sounds are normal and there was no tenderness rebound or guarding. Musculoskeletal: Normal range of motion. No tenderness. Neurological: No obvious deficits. Skin: No rash noted. Extremities: No edema Meds: Current Meds: aspirin, 81 mg, oral, Daily atorvastatin, 80 mg, oral, Nightly busPIRone, 10 mg, oral, BID dapagliflozin propanediol, 10 mg, oral, Daily DULoxetine, 60 mg, oral, Daily folic acid, 1 mg, oral, Daily gabapentin, 300 mg, oral, 4x Daily heparin (porcine), 5,000 Units, subcutaneous, Q12H KAMILAH metoprolol succinate XL, 12.5 mg, oral, Daily prasugreL HCl, 10 mg, oral, Daily sennosides-docusate sodium, 2 tablet, oral, BID sodium chloride, 3 mL, intravenous, Q12H sodium chloride, 3 mL, intravenous, Q12H spironolactone, 25 mg, oral, Daily thiamine HCl, 100 mg, oral, Daily valsartan, 40 mg, oral, BID Continuous Infusions: Laboratory Studies Results from last 7 days Lab Units 05/14/24 0404 05/13/24 1254 05/13/24 0527 05/12/24 2126 05/12/24 1307 05/12/24 0552 SODIUM mmol/L 135 132* 133* < > 131* 130* POTASSIUM mmol/L 4.0 3.8 3.5 < > 4.0 4.0 CHLORIDE mmol/L 101 97* 100 < > 98 98 CO2 mmol/L 25 26 25 < > 25 24 BUN mg/dL 7 -- 6 -- -- 6 CREATININE mg/dL 0.52 -- 0.42 -- -- 0.46 CALCIUM mg/dL 8.9 -- 8.6 -- -- 8.4* PHOSPHORUS mg/dL 4.3 -- 4.0 -- -- 3.8 MAGNESIUM mg/dL 2.0 -- 2.1 -- 2.9* 1.8 < > = values in this interval not displayed. Results from last 7 days Lab Units 05/14/24 0404 05/13/24 0527 05/12/24 0552 WBC X10E9/L 7.7 7.9 7.4 HEMOGLOBIN g/dL 12.3 11.8 11.9 HEMATOCRIT % 35.3 32.9* 33.8* PLATELETS X10E9/L 334 305 262 Results from last 7 days Lab Units 05/14/24 0404 05/13/24 0527 05/12/24 1307 MAGNESIUM mg/dL 2.0 2.1 2.9* Lab Results Component Value Date CALCIUM 8.9 05/14/2024 Lab Results Component Value Date IRON 30 (L) 04/06/2024 TIBC 358 04/06/2024 FERRITIN 17 04/06/2024 Please contact me at [phone] (Office) or [phone] (Answering service) with any questions. Please feel free to contact me through [employer] Secure chat during the daytime hours, if no response after 5 minutes then call the answering service. MASSIEL ATWOOD D.O. [facility] This note was created with the assistance of a speech-recognition program. Although the intention is to generate a document that actually reflects the content of the visit, no guarantees can be provided that every mistake has been identified and corrected by editing. Physical Therapy Treatment Discharge Recommendations PT Recommendations: [facility] Facility Therapy Plan 6 Clicks: Basic Mobility Turning from your [...] Score: 18 CMS G Code Modifier: CK PT Treatment/Interventions: LE strengthening/ROM, Endurance training, Gait training, Bed mobility, UE strengthening/ROM Patient Response to Treatment: Progressing toward goals Assessment Patient Assessment Patient Response to Treatment: Progressing toward goals Visit RN Communication: Yes Medical Record Reviewed: Yes PT Type of Visit: Treatment Precautions Activity: early mobility: pass. okay to see per RN Pacemaker/ICD: Pacemaker Telemetry/Top Flavor Attendant: Yes Other Cardiac Monitoring Devices: Cardiac Life Vest Other: High fall risk, h/o falls, CIWA protocol, delirium/dementia precautions, 1500mL fluid restriction, bed/chair alarm and telesitter Pain Assessment Pain Assessment: 0-10 Pain Score: 6 Pain Location: Neck Pain Orientation: Upper Pain Intervention(s): Emotional support Response to Interventions: Quiet Bed Mobility Rolling: Contact guard assist Supine to Sit: Contact guard assist Sit to Supine: Contact guard assist Other: Pt lying in bed on the phone upon arrival. Pt left up in chair with chair alarm on and call light in reach at end of treatment. Transfers Sit to Stand: Contact guard assist Stand to Sit: Contact guard assist Other: Multiple cues given for hand palcement during STS transfers due to confusion. Gait Base of Support: Narrow Pattern: Decreased leydi Gait Assistance: Contact guard assist Assistive Device: Rolling walker Gait Distance: 200 feet Limiting Factors to Gait: Fatigue, Weakness, Decreased safety Other: Pt abulates with a slow unsteady leydi. Cues given for RW safety. Balance Balance Evaluation: Exceptions to Functional Limits Sitting Balance: Static: Good Sitting Balance: Dynamic: Good Standing Balance: Static: Fair Standing Balance: Dynamic: Fair (with UE support) Other: Pt was able to complete seated exercises with UE support from chair as needed. Activity Tolerance Endurance: Tolerates <30 minutes activity with vital sign changes Plan Physical Therapy Care Plan Physical Therapy Care Plan (Active) Template: PT - Physical Therapy Problem: Activity Tolerance Dates: Start: 05/11/24 Disciplines: PT Goal: Tolerate > 30 minutes of activity WITH rest breaks Dates: Start: 05/11/24 Expected End: 05/31/24 Description: Goal Description: Disciplines: PT Outcomes Date/Time User Outcome 05/13/24 1259 Ivannawinter Murray, INTERNATIONAL STUDENT COUNSELOR Progressing Goal Note filed on 05/14/24 0946 by Hannah Sue, Student INTERNATIONAL STUDENT COUNSELOR Evaluation of progress towards goal: Problem: Bed Mobility Dates: Start: 05/11/24 Disciplines: PT Goal: Patient will perform bed mobility with Modified [place] Dates: Start: 05/11/24 Expected End: 05/31/24 Description: Goal Description: with proper BUE placement and sequencing Disciplines: PT Outcomes Date/Time User Outcome 05/13/24 125Les Murray, INTERNATIONAL STUDENT COUNSELOR Progressing Goal Note filed on 05/14/24 0946 by Hannah Sue, Student INTERNATIONAL STUDENT COUNSELOR Evaluation of progress towards goal: Problem: Gait Dates: Start: 05/11/24 Disciplines: PT Goal: Patient will perform gait with Modified [place] Dates: Start: 05/11/24 Expected End: 05/31/24 Description: With__RW__,__100__feet Goal Description: with proper gait pattern and safety awareness Disciplines: PT Outcomes Date/Time User Outcome 05/13/24 125Les Ivannawinter Murray, INTERNATIONAL STUDENT COUNSELOR Progressing Goal Note filed on 05/14/24 0946 by Hannah Sue, Student INTERNATIONAL STUDENT COUNSELOR Evaluation of progress towards goal: Problem: Stairs/Curb Dates: Start: 05/11/24 Disciplines: PT Goal: Patient will perform stairs/curb with Modified [place] Dates: Start: 05/11/24 Expected End: 05/31/24 Description: __3___steps,__w/o___hand rails Goal Description: for safer entry into home Disciplines: PT Goal Note filed on 05/14/24 0946 by Hannah Lorimor, Student INTERNATIONAL STUDENT COUNSELOR Evaluation of progress towards goal: Problem: Standing Balance Dates: Start: 05/11/24 Disciplines: PT Goal: Improve balance to normal Dates: Start: 05/11/24 Expected End: 05/31/24 Description: Static/Dynamic to reduce risk of falls with all functional tasks Disciplines: PT Outcomes Date/Time User Outcome 05/14/24945 Urvashi Hartmann INTERNATIONAL STUDENT COUNSELOR Progressing 05/13/24 1259 Ivanna Murray INTERNATIONAL STUDENT COUNSELOR Progressing Goal Note filed on 05/14/24 0946 by Hannah Sue Student INTERNATIONAL STUDENT COUNSELOR Evaluation of progress towards goal: Problem: Strength Dates: Start: 05/11/24 Disciplines: PT Goal: Improve strength Dates: Start: 05/11/24 Expected End: 05/31/24 Description: Of extremity/ location: BLE strength to WFL To facilitate: Safer functional mobility tasks Disciplines: PT Outcomes Date/Time User Outcome 05/14/24945 Urvashi Hartmann INTERNATIONAL STUDENT COUNSELOR Progressing 05/13/24 1259 Ivanna Murray INTERNATIONAL STUDENT COUNSELOR Progressing Goal Note filed on 05/14/2446 by Urvashi Hartmann INTERNATIONAL STUDENT COUNSELOR Evaluation of progress towards goal: Problem: Transfers Dates: Start: 05/11/24 Disciplines: PT Goal: Patient will perform transfers with Modified [place] Dates: Start: 05/11/24 Expected End: 05/31/24 Description: Goal Description: with proper BUE placement and sequencing Disciplines: PT Outcomes Date/Time User Outcome 05/13/24 125Les Murray INTERNATIONAL STUDENT COUNSELOR Progressing Goal Note filed on 05/14/24945 by Urvashi Hartmann INTERNATIONAL STUDENT COUNSELOR Evaluation of progress towards goal: Physical Therapy Care Plan (Resolved) There are no resolved problems. Principal Problem: CHB (complete heart block) ([facility]) Active Problems: HTN (hypertension) ST elevation myocardial infarction (STEMI) ([facility]) Coronary artery disease involving skagway coronary artery of skagway heart Mixed hyperlipidemia Cosigned by Janae Shaffer PT at 05/15/2024 11:14 AM EDT Associated attestation - Janae Shaffer PT - 05/15/2024 11:14 AM EDT I have reviewed and agree with this note and education documentation for this visit. Images from the original note were not included. [facility] INTERNAL MEDICINE [facility] 6W ACUTE [address] [facility] [id number] Hospital Medicine Progress Note Patient: Alie Briones Date of : 1960 Room: [place] [address] PCP: ROSITA Lance Admission date: 05/07/2024 3:54 PM Encounter date: 05/14/24 Hospital Day: 8 SUBJECTIVE Chief complaints: No chief complaint on file. Interval History: Resting in bed, awaiting residential facility placement, medically ready for discharge at this time. Review of Systems Constitutional: Negative for activity change, appetite change, fatigue and unexpected weight change. HENT: Negative for trouble swallowing. Respiratory: Negative for cough, sputum production, shortness of breath and wheezing. Cardiovascular: Negative for chest pain, palpitations and leg swelling. Gastrointestinal: Negative for abdominal pain, blood in stool, melena, constipation, diarrhea, nausea and vomiting. Genitourinary: Negative for difficulty urinating. Skin: Negative for color change and wound. Neurological: Negative for dizziness, seizures, speech difficulty and headaches. Confusion Psychiatric/Behavioral: Negative for sleep disturbance. OBJECTIVE BP 103/49 Pulse 80 Temp 37 C (98.6 F) (Oral) Resp 17 Ht 152.4 cm (5') Wt 42.6 kg (93 lb 14.7 oz) SpO2 99% BMI 18.34 kg/m Temp: [36.3 C (97.4 F)-37 C (98.6 F)] 37 C (98.6 F) Pulse: [68-81] 80 Resp: [15-19] 17 BP: (103-123)/(49-70) 103/49 SpO2: [95 %-99 %] 99 % O2 Device: None (Room air) O2 Flow Rate (L/min): [0 L/min] 0 L/min Intake/Output Summary (Last 24 hours) at 05/14/2024 1235 Last data filed at 05/14/2024 0744 Gross per 24 hour Intake 900 ml Output 1300 ml Net -400 ml Physical Exam Constitutional: General: No acute distress. Cardiovascular: Rate and Rhythm: Normal rate and regular rhythm. Heart sounds: Normal heart sounds, S1 normal and S2 normal. Pulmonary: Effort: Pulmonary effort is normal. Breath sounds: Normal breath sounds. Abdominal: General: Bowel sounds are normal. Palpations: Abdomen is soft. Tenderness: There is no abdominal tenderness. Musculoskeletal: Right lower leg: No edema. Left lower leg: No edema. Skin: General: Skin is warm and dry. Coloration: Skin is not pale. Neurological: General: No focal deficit present. Alert, oriented to person, place Psychiatric: Mood and Affect: Mood normal. Behavior: Behavior normal. Medications Scheduled: aspirin, 81 mg, oral, Daily atorvastatin, 80 mg, oral, Nightly busPIRone, 10 mg, oral, BID dapagliflozin propanediol, 10 mg, oral, Daily DULoxetine, 60 mg, oral, Daily folic acid, 1 mg, oral, Daily gabapentin, 300 mg, oral, 4x Daily heparin (porcine), 5,000 Units, subcutaneous, Q12H KAMILAH metoprolol succinate XL, 12.5 mg, oral, Daily prasugreL HCl, 10 mg, oral, Daily sennosides-docusate sodium, 2 tablet, oral, BID sodium chloride, 3 mL, intravenous, Q12H sodium chloride, 3 mL, intravenous, Q12H spironolactone, 25 mg, oral, Daily thiamine HCl, 100 mg, oral, Daily valsartan, 40 mg, oral, BID Infusions: As Needed: acetaminophen acetaminophen-codeine acetaminophen-codeine calcium gluconate OR calcium gluconate OR calcium gluconate dextrose dextrose dextrose 50 % in water (D50W) diphenhydrAMINE glucagon (human recombinant) LORazepam magnesium sulfate OR magnesium sulfate morphine injection nicotine nitroglycerin polyethylene glycol potassium chloride OR potassium chloride potassium chloride in water OR potassium chloride in water sodium phosphate IV OR sodium phosphate IV - central line OR sod phos di, mono-K phos mono sodium chloride sodium chloride Allergies: Sulfa (sulfonamide antibiotics) Labs Recent Results (from the past 24 hours) Electrolyte panel Collection Time: 05/13/24 12:54 PM Result Value Ref Range Sodium 132 (L) 134 - 146 mmol/L Potassium, Bld 3.8 3.5 - 5.0 mmol/L Chloride 97 (L) 98 - 109 mmol/L CO2 26 22 - 32 mmol/L Anion gap 9 5 - 15 mmol/L CBC without diff Collection Time: 05/14/24 4:04 AM Result Value Ref Range White Blood Cells 7.7 4.0 - 11.0 X10E9/L RBC count 3.71 (L) 3.80 - 5.20 X10E12/L Hemoglobin 12.3 11.7 - 15.5 g/dL Hematocrit 35.3 35 - 47 % MCV 95 80 - 100 fL MCH 33.2 27 - 34 pg MCHC 34.9 32 - 36 g/dL RDW 13.0 11.5 - 15.0 % Platelets 334 150 - 450 X10E9/L MPV 8.2 7 - 12 fL Comprehensive metabolic panel Collection Time: 05/14/24 4:04 AM Result Value Ref Range Sodium 135 134 - 146 mmol/L Potassium, Bld 4.0 3.5 - 5.0 mmol/L Chloride 101 98 - 109 mmol/L CO2 25 22 - 32 mmol/L Anion gap 9 5 - 15 mmol/L BUN 7 5 - 27 mg/dL Creatinine 0.52 0.40 - 1.00 mg/dL Glucose 100 (H) 65 - 99 mg/dL Calcium 8.9 8.5 - 10.5 mg/dL Total Protein 6.7 6.0 - 8.0 g/dL Albumin 3.6 3.2 - 5.3 g/dL Alkaline Phosphatase 83 39 - 130 U/L AST 19 0 - 41 U/L ALT 19 0 - 31 U/L Total bilirubin 0.4 0.3 - 1.2 mg/dL eGFR (CKD-EPI)non-race dependent >90 >59 ml/min/1.73sq.m Magnesium Collection Time: 05/14/24 4:04 AM Result Value Ref Range Magnesium 2.0 1.8 - 2.6 mg/dL Phosphorus Collection Time: 05/14/24 4:04 AM Result Value Ref Range Phosphorus 4.3 2.4 - 4.9 mg/dL Ionized calcium Collection Time: 05/14/24 4:04 AM Result Value Ref Range Calcium, ionized 4.2 (L) 4.5 - 5.3 mg/dL Bedside Glucose *Place/Obtain serum glucose if >500 per glucometer. Collection Time: 05/14/24 9:10 AM Result Value Ref Range Bedside glucose 86 65 - 99 mg/dL Radiology Echo limited W/O contrast Result Date: 05/10/2024 Narrative: Left Ventricle: Left ventricle appears normal in size. Systolic function is severely decreased with an ejection fraction of 20-25%. Right Ventricle: Right ventricular size appears normal. Systolic function is normal. EEG Result Date: 05/10/2024 Narrative: Images from the original result were not included. [facility] EEG REPORT EEG Service Date: 05/10/24 Date of Report: 05/10/24 History: Alie Briones is a 63 y.o. female with hallucinations and memory loss who is undergoing EEG to evaluate for seizures. Centrally active medications: Buspar, diphenydramine, lorazepam, morphine. Procedure: This EEG was acquired with electrodes placed according to the [id number] electrode placement system. The EEG was acquired [...] of intermittent seizures. Kat Marquez M.D., Ph.D. Acoustical Tile Patternmaker [facility] Cardiac Invasive Result Date: 05/10/2024 Narrative: Successful staged revascularization of the 80% stenosis [...] aggressive medical management. Recommend follow-up with primary mainframe developer outpatient. Echo limited W/O contrast Result Date: 05/08/2024 Narrative: Left Ventricle: Left ventricle appears normal in size. Systolic function is moderately to severely decreased with an ejection fraction of 30-35%. Aortic Valve: There is no regurgitation or stenosis. Mitral Valve: There is [id number] regurgitation. There is no evidence of mitral valve stenosis. Tricuspid Valve: There is trace regurgitation. There is no evidence of tricuspid valve stenosis. Cardiac Invasive Result Date: 05/08/2024 Narrative: Successful placement of temporary pacing wire for [...] temporary pacemaker if rhythm stabilizes Electrophysiology consultation X-ray chest 1 view Result Date: 05/07/2024 Narrative: Single view chest XR CHEST 1 VW History: dizziness Comparison: June 30, 2022 Impression: * No consolidation or pleural fluid. No acute findings. Finalized by Nnamdi Amaro MD on 05/07/2024 2:[address] cervical spine without contrast Result Date: 05/07/2024 Narrative: CT CERVICAL SPINE WO CONT INDICATION: Fall, [...] Maximilian Link MD on 05/07/2024 2:45 PM X-ray pelvis 1 or 2 views Result Date: 05/07/2024 Narrative: XR PELVIS 1 OR 2 VWS fall Pelvic trauma Findings: There is grossly no fracture or destructive lesion. Impression: * No acute findings. * Consider MRI if you suspect occult process. Finalized by Nnamdi Amaro MD on 05/07/2024 2:[address] brain without contrast Result Date: 05/07/2024 Narrative: STUDY: CT HEAD WITHOUT CONTRAST CLINICAL HISTORY: [...] Nnamdi Amaro MD on 05/07/2024 2:42 PM HOSPITAL PROBLEM LIST Principal Problem: CHB (complete heart block) ([facility]) Active Problems: HTN (hypertension) ST elevation myocardial infarction (STEMI) ([facility]) Coronary artery disease involving skag[place] coronary artery of [place] heart Mixed hyperlipidemia ASSESSMENT & PLAN Complete heart block in setting of STEMI with recurrent syncope, resolved, now with LAFB/RBBB Electrophysiology signed off, no plans for pacemaker at this time. Recommended discharging with outpatient 30 day MCOT to evaluate for any further episodes of high-degree heart block. Can follow-up with EP for primary prevention ICD/OUTBOUND SUPERVISOR if EF remains less than 30% after 3 months of GDMT. Anterior STEMI CAD s/p PCI/GARETT pLAD 05/07/24 and staged PCI/GARETT OM2 on 05/09/24 Ischemic cardiomyopathy HFrEF 20-25% Essential hypertension, normotensive Mixed hyperlipidemia Cardiology following. Continued on aspirin, Effient, Lipitor, Toprol, valsartan, Farxiga, Aldactone, Diovan. LifeVest fitted yesterday Follow up with Cardiology outpatient Hypovolemic hyponatremia Nephrology following and managing. Na 135 today Continue fluid restriction. Acute encephalopathy, likely toxic metabolic Alcoholism Opiate/substance abuse Neurology following EEG has been normal. DC CIWA protocol. On IV thiamine. Neurology also recommended outpatient MRI of cervical and lumbar spines for further evaluation of ruling out possible myeloradiculopathy contributing to patient's initial fall. DC planning: DC to SNF, medically cleared after life vest fitting. MARCIAL Casey 05/14/2024 12:35 PM [facility] Huma Barrera [facility] Internal Medicine 7AM-7PM & 7PM-7AM: EpicChat or page through [employer]. MARCIAL Palacios 05/14/24 1237 I, Konrad Mix MD, personally performed the face to face diagnostic evaluation on this patient. I have reviewed the LOBITO's History, Exam, and MDM and agree with the assessment and plan as written. Images from the original note were not included. [facility] INTER[facility] MEDIC[facility] 6W ACUTE [address] [facility] [id number] Hospital Medicine Progress Note Patient: Alie Briones Date of : 1960 [facility] PCP: ROSITA Lance Admission date: 05/07/2024 3:54 PM Encounter date: 05/13/24 Hospital Day: 7 SUBJECTIVE Chief complaints: No chief complaint on file. Interval History: Resting in recliner. Reports feeling well, patient to have lifevest placed today. Follow up out patient with cardiology, awaiting SNF placement. Review of Systems Constitutional: Negative for activity change, appetite change, fatigue and unexpected weight change. HENT: Negative for trouble swallowing. Respiratory: Negative for cough, sputum production, shortness of breath and wheezing. Cardiovascular: Negative for chest pain, palpitations and leg swelling. Gastrointestinal: Negative for abdominal pain, blood in stool, melena, constipation, diarrhea, nausea and vomiting. Genitourinary: Negative for difficulty urinating. Skin: Negative for color change and wound. Neurological: Negative for dizziness, seizures, speech difficulty and headaches. Confusion Psychiatric/Behavioral: Negative for sleep disturbance. OBJECTIVE BP 116/70 Pulse 77 Temp 36.3 C (97.4 F) (Oral) Resp 17 Ht 152.4 cm (5') Wt 43.4 kg (95 lb 10.9 oz) SpO2 99% BMI 18.69 kg/m Temp: [36.3 C (97.4 F)-37 C (98.6 F)] 36.3 C (97.4 F) Pulse: [72-93] 77 Resp: [16-17] 17 BP: (106-128)/(60-82) 116/70 SpO2: [95 %-99 %] 99 % O2 Device: None (Room air) O2 Flow Rate (L/min): [0 L/min] 0 L/min Intake/Output Summary (Last 24 hours) at 05/13/2024 1754 Last data filed at 05/13/2024 1300 Gross per 24 hour Intake 1598.83 ml Output 1500 ml Net 98.83 ml Physical Exam Constitutional: General: No acute distress. Cardiovascular: Rate and Rhythm: Normal rate and regular rhythm. Heart sounds: Normal heart sounds, S1 normal and S2 normal. Pulmonary: Effort: Pulmonary effort is normal. Breath sounds: Normal breath sounds. Abdominal: General: Bowel sounds are normal. Palpations: Abdomen is soft. Tenderness: There is no abdominal tenderness. Musculoskeletal: Right lower leg: No edema. Left lower leg: No edema. Skin: General: Skin is warm and dry. Coloration: Skin is not pale. Neurological: General: No focal deficit present. Alert, oriented to person, place Psychiatric: Mood and Affect: Mood normal. Behavior: Behavior normal. Medications Scheduled: aspirin, 81 mg, oral, Daily atorvastatin, 80 mg, oral, Nightly busPIRone, 10 mg, oral, BID dapagliflozin propanediol, 10 mg, oral, Daily DULoxetine, 60 mg, oral, Daily folic acid, 1 mg, oral, Daily gabapentin, 300 mg, oral, 4x Daily heparin (porcine), 5,000 Units, subcutaneous, Q12H KAMILAH metoprolol succinate XL, 12.5 mg, oral, Daily prasugreL HCl, 10 mg, oral, Daily sennosides-docusate sodium, 2 tablet, oral, BID sodium chloride, 3 mL, intravenous, Q12H sodium chloride, 3 mL, intravenous, Q12H spironolactone, 25 mg, oral, Daily thiamine HCl, 100 mg, oral, Daily valsartan, 40 mg, oral, BID Infusions: As Needed: acetaminophen acetaminophen-codeine acetaminophen-codeine calcium gluconate OR calcium gluconate OR calcium gluconate dextrose dextrose dextrose 50 % in water (D50W) diphenhydrAMINE glucagon (human recombinant) LORazepam magnesium sulfate OR magnesium sulfate morphine injection nicotine nitroglycerin polyethylene glycol potassium chloride OR potassium chloride potassium chloride in water OR potassium chloride in water sodium phosphate IV OR sodium phosphate IV - central line OR sod phos di, mono-K phos mono sodium chloride sodium chloride Allergies: Sulfa (sulfonamide antibiotics) Labs Recent Results (from the past 24 hours) Electrolyte panel Collection Time: 05/12/24 9:26 PM Result Value Ref Range Sodium 132 (L) 134 - 146 mmol/L Potassium, Bld 4.4 3.5 - 5.0 mmol/L Chloride 99 98 - 109 mmol/L CO2 24 22 - 32 mmol/L Anion gap 9 5 - 15 mmol/L CBC without diff Collection Time: 05/13/24 5:27 AM Result Value Ref Range White Blood Cells 7.9 4.0 - 11.0 X10E9/L RBC count 3.49 (L) 3.80 - 5.20 X10E12/L Hemoglobin 11.8 11.7 - 15.5 g/dL Hematocrit 32.9 (L) 35 - 47 % MCV 94 80 - 100 fL MCH 33.8 27 - 34 pg MCHC 35.8 32 - 36 g/dL RDW 12.8 11.5 - 15.0 % Platelets 305 150 - 450 X10E9/L MPV 8.3 7 - 12 fL Comprehensive metabolic panel Collection Time: 05/13/24 5:27 AM Result Value Ref Range Sodium 133 (L) 134 - 146 mmol/L Potassium, Bld 3.5 3.5 - 5.0 mmol/L Chloride 100 98 - 109 mmol/L CO2 25 22 - 32 mmol/L Anion gap 8 5 - 15 mmol/L BUN 6 5 - 27 mg/dL Creatinine 0.42 0.40 - 1.00 mg/dL Glucose 94 65 - 99 mg/dL Calcium 8.6 8.5 - 10.5 mg/dL Total Protein 6.0 6.0 - 8.0 g/dL Albumin 3.4 3.2 - 5.3 g/dL Alkaline Phosphatase 85 39 - 130 U/L AST 16 0 - 41 U/L ALT 14 0 - 31 U/L Total bilirubin 0.6 0.3 - 1.2 mg/dL eGFR (CKD-EPI)non-race dependent >90 >59 ml/min/1.73sq.m Magnesium Collection Time: 05/13/24 5:27 AM Result Value Ref Range Magnesium 2.1 1.8 - 2.6 mg/dL Phosphorus Collection Time: 05/13/24 5:27 AM Result Value Ref Range Phosphorus 4.0 2.4 - 4.9 mg/dL Ionized calcium Collection Time: 05/13/24 5:27 AM Result Value Ref Range Calcium, ionized 4.6 4.5 - 5.3 mg/dL Electrolyte panel Collection Time: 05/13/24 12:54 PM Result Value Ref Range Sodium 132 (L) 134 - 146 mmol/L Potassium, Bld 3.8 3.5 - 5.0 mmol/L Chloride 97 (L) 98 - 109 mmol/L CO2 26 22 - 32 mmol/L Anion gap 9 5 - 15 mmol/L Radiology Echo limited W/O contrast Result Date: 05/10/2024 Narrative: Left Ventricle: Left ventricle appears normal in size. Systolic function is severely decreased with an ejection fraction of 20-25%. Right Ventricle: Right ventricular size appears normal. Systolic function is normal. EEG Result Date: 05/10/2024 Narrative: Images from the original result were not included. [facility] EEG REPORT EEG Service Date: 05/10/24 Date of Report: 05/10/24 History: Alie Briones is a 63 y.o. female with hallucinations and memory loss who is undergoing EEG to evaluate for seizures. Centrally active medications: Buspar, diphenydramine, lorazepam, morphine. Procedure: This EEG was acquired with electrodes placed according to the [id number] electrode placement system. The EEG was acquired [...] of intermittent seizures. Kat Marquez M.D., Ph.D. Acoustical Tile Patternmaker [facility] Cardiac Invasive Result Date: 05/10/2024 Narrative: Successful staged revascularization of the 80% stenosis [...] aggressive medical management. Recommend follow-up with primary mainframe developer outpatient. Echo limited W/O contrast Result Date: 05/08/2024 Narrative: Left Ventricle: Left ventricle appears normal in size. Systolic function is moderately to severely decreased with an ejection fraction of 30-35%. Aortic Valve: There is no regurgitation or stenosis. Mitral Valve: There is [id number] regurgitation. There is no evidence of mitral valve stenosis. Tricuspid Valve: There is trace regurgitation. There is no evidence of tricuspid valve stenosis. Cardiac Invasive Result Date: 05/08/2024 Narrative: Successful placement of temporary pacing wire for [...] temporary pacemaker if rhythm stabilizes Electrophysiology consultation X-ray chest 1 view Result Date: 05/07/2024 Narrative: Single view chest XR CHEST 1 VW History: dizziness Comparison: June 30, 2022 Impression: * No consolidation or pleural fluid. No acute findings. Finalized by Nnamdi Amaro MD on 05/07/2024 2:[address] cervical spine without contrast Result Date: 05/07/2024 Narrative: CT CERVICAL SPINE WO CONT INDICATION: Fall, [...] Maximilian Link MD on 05/07/2024 2:45 PM X-ray pelvis 1 or 2 views Result Date: 05/07/2024 Narrative: XR PELVIS 1 OR 2 VWS fall Pelvic trauma Findings: There is grossly no fracture or destructive lesion. Impression: * No acute findings. * Consider MRI if you suspect occult process. Finalized by Nnamdi Amaro MD on 05/07/2024 2:[address] brain without contrast Result Date: 05/07/2024 Narrative: STUDY: CT HEAD WITHOUT CONTRAST CLINICAL HISTORY: [...] Nnamdi Amaro MD on 05/07/2024 2:42 PM HOSPITAL PROBLEM LIST Principal Problem: CHB (complete heart block) ([facility]) Active Problems: HTN (hypertension) ST elevation myocardial infarction (STEMI) ([facility]) Coronary artery disease involving [place] coronary artery of [place] heart Mixed hyperlipidemia ASSESSMENT & PLAN Complete heart block in setting of STEMI with recurrent syncope, resolved, now with LAFB/RBBB Electrophysiology signed off, no plans for pacemaker at this time. Recommended discharging with outpatient 30 day MCOT to evaluate for any further episodes of high-degree heart block. Can follow-up with EP for primary prevention ICD/OUTBOUND SUPERVISOR if EF remains less than 30% after 3 months of GDMT. Anterior STEMI CAD s/p PCI/GARETT pLAD 05/07/24 and staged PCI/GARETT OM2 on 05/09/24 Ischemic cardiomyopathy HFrEF 20-25% Essential hypertension, normotensive Mixed hyperlipidemia Cardiology following. Continued on aspirin, Effient, Lipitor, Toprol, valsartan, Farxiga, Aldactone, Diovan. Plans for LifeVest on discharge-fitted today Follow up with Cardiology Hypovolemic hyponatremia Nephrology following and managing. Continue fluid restriction. Acute encephalopathy, likely toxic metabolic Alcoholism Opiate/substance abuse Neurology following EEG has been normal. DC CIWA protocol. On IV thiamine. Neurology also recommended outpatient MRI of cervical and lumbar spines for further evaluation of ruling out possible myeloradiculopathy contributing to patient's initial fall. DC planning: DC to SNF, medically cleared after life vest fitting. AnicetoMARCIAL Jacob 05/13/2024 5:54 PM [facility] Internal Medicine 7AM-7PM & 7PM-7AM: EpicChat or page through On-Call Finder. MARCIAL Palacios 05/13/24 9264 I, Konrad Mix MD, personally performed the face to face diagnostic evaluation on this patient. I have reviewed the LOBITO's History, Exam, and MDM and agree with the assessment and plan as written. NEPHROLOGY PROGRESS NOTE Assessment Hypovolemic hyponatremia: Sodium level continues to improve. Continue fluid restriction. Hypertension: Blood pressure is adequately controlled.. Complete heart block status post temporary pacing wire placement ST-elevation VA status post stenting to the LAD on May 07 and subsequent stenting to the 2nd obtuse marginal on May 09. Plan Renal panel daily Strict intake output Daily weights Continue fluid restriction Subjective/ interval history no events resting in bed denies any issues Problem List Hypovolemic hyponatremia in the setting of complete heart block and hypotension. Uric acid was 3.7, TSH 1.49 and free T4 was 1.07, cortisol was 15.2, serum osmolality was 256, random urine sodium was less than 10 and random urine osmolality was 353 Complete heart block status post temporary pacing wire placement on May 07, 2024 ST-elevation VA from April of 2024 status post cardiac catheterization with stenting to the LAD on May 07, 2024 NSAIDs subsequent stage revascularization of 80% of the 2nd obtuse marginal with a drug-eluting stent on May 09, 2024. Cardiac catheterization on May 07, 2024 revealed severe diffuse disease of the LAD with moderate calcification and 100% stenosis of the proximal LAD to mid LAD which was successfully stented, 40% mid to distal left circumflex, 85% 2nd obtuse marginal and 20% proximal to mid RCA stenosis. Hypertension Asthma Degenerative joint disease Chronic back pain TMJ dysfunction Multiple cervical spine steroid injections and radiofrequency ablation for chronic neck pain. Tonsillectomy Left-sided rotator cuff repair Echocardiogram from April of 2024 revealed ejection fraction of 30-35% with trace to mild mitral regurgitation and trace tricuspid regurgitation. Physical Exam Admission Weight: Weight: 47.1 kg (103 lb 13.4 oz) I/O last 3 completed shifts: In: 1588.8 [P.O.:1190; IV Piggyback:398.8] Out: 3850 [Urine:3850] Weight change: -2 kg (-4 lb 6.6 oz) Wt Readings from Last 3 Encounters: 05/13/24 43.4 kg (95 lb 10.9 oz) 06/30/22 55.7 kg (122 lb 14.4 oz) 06/09/22 54.4 kg (120 lb) Vitals: Vitals: 05/13/24 0345 05/13/24 0808 05/13/24 1010 05/13/24 1200 BP: 128/82 111/60 110/65 Pulse: 72 93 Resp: 16 16 Temp: 36.9 C (98.5 F) 36.8 C (98.2 F) 36.9 C (98.5 F) TempSrc: Oral Oral Oral SpO2: 95% 97% Weight: Height: General: Alert, oriented x 3 and in no obvious distress Psychiatric: Has a normal mood and affect. HEENT: Head normocephalic. Eyes: Conjunctivae and EOM are normal. Pupils are equal, round and reactive to light. Cardiovascular: Normal rate, regular rhythm and normal heart sounds. No JVD. Pulmonary/Chest: Air entry bilaterally equal. No wheezes or rales. Abdominal: Soft, bowel sounds are normal and there was no tenderness rebound or guarding. Musculoskeletal: Normal range of motion. No tenderness. Neurological: No obvious deficits. Skin: No rash noted. Extremities: No edema Meds: Current Meds: aspirin, 81 mg, oral, Daily atorvastatin, 80 mg, oral, Nightly busPIRone, 10 mg, oral, BID dapagliflozin propanediol, 10 mg, oral, Daily DULoxetine, 60 mg, oral, Daily folic acid, 1 mg, oral, Daily gabapentin, 300 mg, oral, 4x Daily heparin (porcine), 5,000 Units, subcutaneous, Q12H KAMILAH metoprolol succinate XL, 12.5 mg, oral, Daily prasugreL HCl, 10 mg, oral, Daily sennosides-docusate sodium, 2 tablet, oral, BID sodium chloride, 3 mL, intravenous, Q12H sodium chloride, 3 mL, intravenous, Q12H spironolactone, 25 mg, oral, Daily thiamine HCl, 100 mg, oral, Daily valsartan, 40 mg, oral, BID Continuous Infusions: Laboratory Studies Results from last 7 days Lab Units 05/13/24 0527 05/12/246 05/12/24 1307 05/12/24 0552 05/11/24 1249 05/11/24 0557 SODIUM mmol/L 133* 132* 131* 130* < > 128* POTASSIUM mmol/L 3.5 4.4 4.0 4.0 < > 3.9 CHLORIDE mmol/L 100 99 98 98 < > 96* CO2 mmol/L 25 24 25 24 < > 24 BUN mg/dL 6 -- -- 6 -- 7 CREATININE mg/dL 0.42 -- -- 0.46 -- 0.38* CALCIUM mg/dL 8.6 -- -- 8.4* -- 7.8* PHOSPHORUS mg/dL 4.0 -- -- 3.8 -- 3.7 MAGNESIUM mg/dL 2.1 -- 2.9* 1.8 -- 1.8 < > = values in this interval not displayed. Results from last 7 days Lab Units 05/13/2452605/12/24 0552 05/11/24 0557 WBC X10E9/L 7.9 7.4 8.5 HEMOGLOBIN g/dL 11.8 11.9 11.0* HEMATOCRIT % 32.9* 33.8* 31.3* PLATELETS X10E9/L 305 262 250 Results from last 7 days Lab Units 05/13/24 0527 05/12/24 1307 05/12/24 0552 MAGNESIUM mg/dL 2.1 2.9* 1.8 Lab Results Component Value Date CALCIUM 8.6 05/13/2024 Lab Results Component Value Date IRON 30 (L) 04/06/2024 TIBC 358 04/06/2024 FERRITIN 17 04/06/2024 Please contact me at [phone] (Office) or [phone] (Answering service) with any questions. Please feel free to contact me through [employer] Secure chat during the daytime hours, if no response after 5 minutes then call the answering service. MARCIAL Ryan [facility] This note was created with the assistance of a speech-recognition program. Although the intention is to generate a document that actually reflects the content of the visit, no guarantees can be provided that every mistake has been identified and corrected by editing. MARCIAL Mensah 05/13/24 1317 Cardiac Rehab Discharge Recommendations Post Discharge Therapy Recommendations: Outpatient Cardiac Rehabilitation ([facility]) Therapy Plan Patient Response to Treatment: Progressing toward goals Rehab Prognosis: Good Subjective Pt states to be doing well today. Pt has been confused and forgetful since admission. Pt needs constant reminders on safety. Pt was able to ambulate without difficulties. Pt has been improving well. Pt denies CP, SOB, nausea, or dizziness. Spoke with pt's family about safety precautions. Will continue to follow up with pt. Objective Procedure: GARETT x2 - Prox LAD (100%-0%) - OM2 (85%-0%) - Distal CX (40%) Medical History: HTN CAD HLD Back pain Neck pain +smoker +FH- CAD Assessment Vitals: 05/13/24 0808 05/13/24 0809 05/13/24 1010 Pulse: 93 Heart Rate Source: Monitor Resp: 16 BP: 111/60 110/65 BP Location: Left arm Right arm BP Method: Automatic Patient Position: Sitting SpO2: O2 Device: None (Room air) None (Room air) O2 Flow Rate (L/min): Cardiac Cardiac Rhythm: Normal sinus rhythm Cardiac Regularity: Regular Cardiac Symptoms: Fatigue Bedside Monitoring : Telemetry Monitoring Interventions: Maintained Pain Assessment Pain Assessment: No/denies pain Cognition Safety Judgment: Decreased awareness of need for assistance, Decreased awareness of need for safety Bed Mobility Rolling: Unable to assess Supine to Sit: Unable to assess Sit to Supine: Unable to assess Transfers Sit to Stand: Standby assist Stand to Sit: Standby assist Gait Base of Support: Narrow Pattern: Decreased leydi Gait Assistance: Contact guard assist Assistive Device: Rolling walker Gait Distance: 80' Limiting Factors to Gait: Weakness, Fatigue Images from the original note were not included. FOLLOW-UP: Post-Intensive Care Rounding Note Patient: Alie Briones : 1960 Age: 63 y.o. Length of Stay: 5 days Admission Diagnosis: CHB (complete heart block) ([facility]) [I44.2] Acute electrocardiogram changes [R94.31] ST elevation VA (STEMI) ([facility]) [I21.3] Reviewing patient due to her recent transfer out from Intensive Care. Recorded vital signs are stable and the patient is not noted to be in any apparent distress. Telemetry and monitoring noted. Staff may call with any issues or concerns regarding her clinical presentation or stability. Thank you, Kameron Brown RN Rapid Response: [facility] Images from the original note were not included. [facility] INTERNAL MEDICINE [facility] [address] [facility] [id number] Hospital Medicine Progress Note Patient: Alie Briones Date of : 1960 Room: [place] [address] PCP: ROSITA Lance Admission date: 05/07/2024 3:54 PM Encounter date: 05/12/24 Hospital Day: 6 SUBJECTIVE Chief complaints: No chief complaint on file. Interval History: Resting in recliner. Denies any needs. Feeling well today. Review of Systems Constitutional: Negative for activity change, appetite change, fatigue and unexpected weight change. HENT: Negative for trouble swallowing. Respiratory: Negative for cough, sputum production, shortness of breath and wheezing. Cardiovascular: Negative for chest pain, palpitations and leg swelling. Gastrointestinal: Negative for abdominal pain, blood in stool, melena, constipation, diarrhea, nausea and vomiting. Genitourinary: Negative for difficulty urinating. Skin: Negative for color change and wound. Neurological: Negative for dizziness, seizures, speech difficulty and headaches. Psychiatric/Behavioral: Negative for sleep disturbance. OBJECTIVE BP 99/47 Comment: RN Notified. Pulse 80 Temp 36.9 C (98.4 F) (Oral) Resp 17 Ht 152.4 cm (5') Wt 45.4 kg (100 lb 1.4 oz) SpO2 95% BMI 19.55 kg/m Temp: [36.4 C (97.6 F)-36.9 C (98.4 F)] 36.9 C (98.4 F) Pulse: [74-86] 80 Resp: [15-25] 17 BP: (99-125)/(47-79) 99/47 SpO2: [94 %-97 %] 95 % O2 Device: None (Room air) O2 Flow Rate (L/min): [0 L/min] 0 L/min Intake/Output Summary (Last 24 hours) at 05/12/2024 1352 Last data filed at 05/12/2024 0939 Gross per 24 hour Intake 610 ml Output 2200 ml Net -1590 ml Physical Exam Constitutional: General: No acute distress. Cardiovascular: Rate and Rhythm: Normal rate and regular rhythm. Heart sounds: Normal heart sounds, S1 normal and S2 normal. Pulmonary: Effort: Pulmonary effort is normal. Breath sounds: Normal breath sounds. Abdominal: General: Bowel sounds are normal. Palpations: Abdomen is soft. Tenderness: There is no abdominal tenderness. Musculoskeletal: Right lower leg: No edema. Left lower leg: No edema. Skin: General: Skin is warm and dry. Coloration: Skin is not pale. Neurological: General: No focal deficit present. Alert, oriented to person, place Psychiatric: Mood and Affect: Mood normal. Behavior: Behavior normal. Medications Scheduled: aspirin, 81 mg, oral, Daily atorvastatin, 80 mg, oral, Nightly busPIRone, 10 mg, oral, BID dapagliflozin propanediol, 10 mg, oral, Daily DULoxetine, 60 mg, oral, Daily gabapentin, 300 mg, oral, 4x Daily heparin (porcine), 5,000 Units, subcutaneous, Q12H KAMILAH metoprolol succinate XL, 12.5 mg, oral, Daily prasugreL HCl, 10 mg, oral, Daily sodium chloride, 3 mL, intravenous, Q12H sodium chloride, 3 mL, intravenous, Q12H spironolactone, 25 mg, oral, Daily thiamine (B-1) 500 mg in sodium chloride 0.9 % 50 mL IVPB, 500 mg, intravenous, Q8H valsartan, 40 mg, oral, BID Infusions: As Needed: acetaminophen acetaminophen-codeine acetaminophen-codeine calcium gluconate OR calcium gluconate OR calcium gluconate dextrose dextrose dextrose 50 % in water (D50W) diphenhydrAMINE glucagon (human recombinant) LORazepam LORazepam OR LORazepam OR LORazepam LORazepam OR LORazepam OR LORazepam LORazepam OR LORazepam OR LORazepam LORazepam OR LORazepam OR LORazepam magnesium sulfate OR magnesium sulfate morphine injection nicotine nitroglycerin potassium chloride OR potassium chloride potassium chloride in water OR potassium chloride in water sodium phosphate IV OR sodium phosphate IV - central line OR sod phos di, mono-K phos mono sodium chloride sodium chloride Allergies: Sulfa (sulfonamide antibiotics) Labs Recent Results (from the past 24 hours) Electrolyte panel Collection Time: 05/11/24 10:40 PM Result Value Ref Range Sodium 127 (L) 134 - 146 mmol/L Potassium, Bld 4.1 3.5 - 5.0 mmol/L Chloride 96 (L) 98 - 109 mmol/L CO2 24 22 - 32 mmol/L Anion gap 7 5 - 15 mmol/L CBC without diff Collection Time: 05/12/24 5:52 AM Result Value Ref Range White Blood Cells 7.4 4.0 - 11.0 X10E9/L RBC count 3.53 (L) 3.80 - 5.20 X10E12/L Hemoglobin 11.9 11.7 - 15.5 g/dL Hematocrit 33.8 (L) 35 - 47 % MCV 96 80 - 100 fL MCH 33.6 27 - 34 pg MCHC 35.2 32 - 36 g/dL RDW 12.7 11.5 - 15.0 % Platelets 262 150 - 450 X10E9/L MPV 8.6 7 - 12 fL Comprehensive metabolic panel Collection Time: 05/12/24 5:52 AM Result Value Ref Range Sodium 130 (L) 134 - 146 mmol/L Potassium, Bld 4.0 3.5 - 5.0 mmol/L Chloride 98 98 - 109 mmol/L CO2 24 22 - 32 mmol/L Anion gap 8 5 - 15 mmol/L BUN 6 5 - 27 mg/dL Creatinine 0.46 0.40 - 1.00 mg/dL Glucose 98 65 - 99 mg/dL Calcium 8.4 (L) 8.5 - 10.5 mg/dL Total Protein 6.0 6.0 - 8.0 g/dL Albumin 3.2 3.2 - 5.3 g/dL Alkaline Phosphatase 87 39 - 130 U/L AST 22 0 - 41 U/L ALT 17 0 - 31 U/L Total bilirubin 0.6 0.3 - 1.2 mg/dL eGFR (CKD-EPI)non-race dependent >90 >59 ml/min/1.73sq.m Magnesium Collection Time: 05/12/24 5:52 AM Result Value Ref Range Magnesium 1.8 1.8 - 2.6 mg/dL Phosphorus Collection Time: 05/12/24 5:52 AM Result Value Ref Range Phosphorus 3.8 2.4 - 4.9 mg/dL Ionized calcium Collection Time: 05/12/24 5:52 AM Result Value Ref Range Calcium, ionized 4.5 4.5 - 5.3 mg/dL Radiology Echo limited W/O contrast Result Date: 05/10/2024 Narrative: Left Ventricle: Left ventricle appears normal in size. Systolic function is severely decreased with an ejection fraction of 20-25%. Right Ventricle: Right ventricular size appears normal. Systolic function is normal. EEG Result Date: 05/10/2024 Narrative: Images from the original result were not included. [facility] EEG REPORT EEG Service Date: 05/10/24 Date of Report: 05/10/24 History: Alie Briones is a 63 y.o. female with hallucinations and memory loss who is undergoing EEG to evaluate for seizures. Centrally active medications: Buspar, diphenydramine, lorazepam, morphine. Procedure: This EEG was acquired with electrodes placed according to the [id number] electrode placement system. The EEG was acquired [...] of intermittent seizures. Kat Marquez M.D., Ph.D. Acoustical Tile Patternmaker [facility] Cardiac Invasive Result Date: 05/10/2024 Narrative: Successful staged revascularization of the 80% stenosis [...] aggressive medical management. Recommend follow-up with primary mainframe developer outpatient. Echo limited W/O contrast Result Date: 05/08/2024 Narrative: Left Ventricle: Left ventricle appears normal in size. Systolic function is moderately to severely decreased with an ejection fraction of 30-35%. Aortic Valve: There is no regurgitation or stenosis. Mitral Valve: There is [id number] regurgitation. There is no evidence of mitral valve stenosis. Tricuspid Valve: There is trace regurgitation. There is no evidence of tricuspid valve stenosis. Cardiac Invasive Result Date: 05/08/2024 Narrative: Successful placement of temporary pacing wire for [...] temporary pacemaker if rhythm stabilizes Electrophysiology consultation X-ray chest 1 view Result Date: 05/07/2024 Narrative: Single view chest XR CHEST 1 VW History: dizziness Comparison: June 30, 2022 Impression: * No consolidation or pleural fluid. No acute findings. Finalized by Nnamdi Amaro MD on 05/07/2024 2:[address] cervical spine without contrast Result Date: 05/07/2024 Narrative: CT CERVICAL SPINE WO CONT INDICATION: Fall, [...] Maximilian Link MD on 05/07/2024 2:45 PM X-ray pelvis 1 or 2 views Result Date: 05/07/2024 Narrative: XR PELVIS 1 OR 2 VWS fall Pelvic trauma Findings: There is grossly no fracture or destructive lesion. Impression: * No acute findings. * Consider MRI if you suspect occult process. Finalized by Nnamdi Amaro MD on 05/07/2024 2:[address] brain without contrast Result Date: 05/07/2024 Narrative: STUDY: CT HEAD WITHOUT CONTRAST CLINICAL HISTORY: [...] Nnamdi Amaro MD on 05/07/2024 2:42 PM HOSPITAL PROBLEM LIST Principal Problem: CHB (complete heart block) ([facility]) Active Problems: HTN (hypertension) ST elevation myocardial infarction (STEMI) ([facility]) Coronary artery disease involving [place] coronary artery of [place] heart Mixed hyperlipidemia ASSESSMENT & PLAN Complete heart block in setting of STEMI with recurrent syncope, resolved, now with LAFB/RBBB Electrophysiology signed off, no plans for pacemaker at this time. Recommended discharging with outpatient 30 day MCOT to evaluate for any further episodes of high-degree heart block. Can follow-up with EP for primary prevention ICD/OUTBOUND SUPERVISOR if EF remains less than 30% after 3 months of GDMT. Anterior STEMI CAD s/p PCI/GARETT pLAD 05/07/24 and staged PCI/GARETT OM2 on 05/09/24 Ischemic cardiomyopathy HFrEF 20-25% Essential hypertension, normotensive Mixed hyperlipidemia Cardiology following. Continued on aspirin, Effient, Lipitor, Toprol, valsartan, Farxiga, Aldactone, Diovan. Plans for LifeVest on discharge. Rep is coming tomorrow to fit her. Hypovolemic hyponatremia Nephrology following and managing. Continue fluid restriction. Acute encephalopathy, likely toxic metabolic Alcoholism Opiate/substance abuse, kratom abuse Neurology following EEG has been normal. DC CIWA protocol. On IV thiamine. Neurology also recommended outpatient MRI of cervical and lumbar spines for further evaluation of ruling out possible myeloradiculopathy contributing to patient's initial fall. DC planning: DC to SNF, medically cleared after life vest fitting. MARCIAL CUELLAR 05/12/2024 1:52 PM [facility] Internal Medicine 7AM-7PM & 7PM-7AM: EpicChat or page through On-Call Finder. MARCIAL Cuellar 05/12/24 5425 I have seen and evaluated the patient, and have reviewed the history above and agree. I have repeated the carrington portions of the physical exam and concur with the LOBITO findings. I have reviewed all laboratory findings and imaging reports/films. I agree with the plan as noted above Dr Ivette Galicia MD, MRCP 05/12/2024 5:39 PM Images from the original note were not included. Nephrology Daily Progress Note Assessment Hypovolemic hyponatremia: Received IV LR now discontinued. Now continues on fluid restriction 1.5 L Hypotension: Resolved. Complete heart block status post temporary pacing wire placement ST-elevation VA status post stenting to the LAD on May 07 and subsequent stenting to the 2nd obtuse marginal on May 09. Hypertension: Started on Toprol-XL and Diovan. Plan Continue to monitor renal chemistries Continue fluid restriction 1.5 L Subjective She is resting but awakens to voice. Denies any shortness breath or chest pain. Hemodynamically stable Problem List Hypovolemic hyponatremia in the setting of complete heart block and hypotension. Uric acid was 3.7, TSH 1.49 and free T4 was 1.07, cortisol was 15.2, serum osmolality was 256, random urine sodium was less than 10 and random urine osmolality was 353 Complete heart block status post temporary pacing wire placement on May 07, 2024 ST-elevation VA from April of 2024 status post cardiac catheterization with stenting to the LAD on May 07, 2024 NSAIDs subsequent stage revascularization of 80% of the 2nd obtuse marginal with a drug-eluting stent on May 09, 2024. Cardiac catheterization on May 07, 2024 revealed severe diffuse disease of the LAD with moderate calcification and 100% stenosis of the proximal LAD to mid LAD which was successfully stented, 40% mid to distal left circumflex, 85% 2nd obtuse marginal and 20% proximal to mid RCA stenosis. Hypertension Asthma Degenerative joint disease Chronic back pain TMJ dysfunction Multiple cervical spine steroid injections and radiofrequency ablation for chronic neck pain. Tonsillectomy Left-sided rotator cuff repair Echocardiogram from April of 2024 revealed ejection fraction of 30-35% with trace to mild mitral regurgitation and trace tricuspid regurgitation. Vital Signs and Physical Exam Vitals: 05/11/24200305/11/24 2317 05/12/24 0324 05/12/24 0429 BP: 101/65 111/74 105/63 Pulse: 82 81 74 Resp: 15 Temp: 36.4 C (97.6 F) 36.7 C (98 F) 36.5 C (97.7 F) TempSrc: Oral Oral Oral SpO2: 95% 94% 96% Weight: 45.4 kg (100 lb 1.4 oz) Height: Intake/Output: Intake/Output Summary (Last 24 hours) at 05/12/2024 0771 Last data filed at 05/12/2024 0529 Gross per 24 hour Intake 778 ml Output 2050 ml Net -1272 ml Physical Exam: General appearance: Sleepy but rousable 63-year-old female in no acute distress. Eyes: pupils reactive to light, nonicteric HEENT: no JVD, no carotid bruits, no lymphadenopathy. Heart:: normal S1-S2, No gallops. Lungs: clear to auscultation B/L Abdomen: no tenderness, no guarding, no hepatosplenomegaly could be appreciated. Extremities: No LE edema Neurology: Moves all extremities Skin: no rash Inpatient Meds: aspirin, 81 mg, oral, Daily atorvastatin, 80 mg, oral, Nightly busPIRone, 10 mg, oral, BID dapagliflozin propanediol, 10 mg, oral, Daily DULoxetine, 60 mg, oral, Daily gabapentin, 300 mg, oral, 4x Daily heparin (porcine), 5,000 Units, subcutaneous, Q12H KAMILAH metoprolol succinate XL, 12.5 mg, oral, Daily prasugreL HCl, 10 mg, oral, Daily sodium chloride, 3 mL, intravenous, Q12H sodium chloride, 3 mL, intravenous, Q12H spironolactone, 25 mg, oral, Daily thiamine (B-1) 500 mg in sodium chloride 0.9 % 50 mL IVPB, 500 mg, intravenous, Q8H valsartan, 40 mg, oral, BID Nutrition Dietary Orders (From admission, onward) Start Ordered 05/10/24 1421 Adult diet Regular Texture; No Added Salt (3-4 gm Sodium); Low Fat/Low Cholesterol; Fluid Restriction 1500 mL Diet effective now Question Answer Comment Diet Type: Regular Texture Sodium Modifiers: No Added Salt (3-4 gm Sodium) Fat Modifiers: Low Fat/Low Cholesterol Fluid Restrictions: Fluid Restriction 1500 mL 05/10/24 1420 Labs Results from last 7 days Lab Units 05/12/24 0552 05/11/24 2240 05/11/24 1249 05/11/24 0557 05/10/24 2037 05/10/24 0829 05/10/24 0303 05/09/24 0601 05/09/24 0300 05/08/24 1158 05/08/24 0520 SODIUM mmol/L 130* 127* 128* 128* 128* < > 130* < > 129* < > 128* POTASSIUM mmol/L 4.0 4.1 4.2 3.9 4.4 < > 4.0 < > 3.9 < > 3.3* CHLORIDE mmol/L 98 96* 95* 96* 95* < > 96* < > 96* < > 93* CO2 mmol/L 24 24 23 24 24 < > 26 < > 28 < > 28 BUN mg/dL 6 -- -- 7 -- -- 8 -- 8 -- 10 CREATININE mg/dL 0.46 -- -- 0.38* -- -- 0.42 -- 0.37* -- 0.48 CALCIUM mg/dL 8.4* -- -- 7.8* -- -- 8.0* -- 7.8* -- 8.2* MAGNESIUM mg/dL 1.8 -- -- 1.8 -- -- 1.8 -- 1.9 -- 1.8 PHOSPHORUS mg/dL 3.8 -- -- 3.7 -- -- 3.1 -- 2.5 -- -- < > = values in this interval not displayed. Results from last 7 days Lab Units 05/12/24 0552 05/11/24 0557 05/10/24 0303 WBC X10E9/L 7.4 8.5 6.9 HEMOGLOBIN g/dL 11.9 11.0* 10.1* HEMATOCRIT % 33.8* 31.3* 28.1* PLATELETS X10E9/L 262 250 170 No results found for: PTH , CAION , PHOS Lab Results Component Value Date IRON 30 (L) 04/06/2024 TIBC 358 04/06/2024 FERRITIN 17 04/06/2024 Brandt Quezada CNP Nephrology [facility] Thank you for your consultation and allowing us to participate in the care of Alei Briones and please do not hesitate to call us with any questions at: Office: [phone] Office Answering Service: [phone] This note was created with the assistance of a speech-recognition program. Although the intention is to generate a document that actually reflects the content of the visit, no guarantees can be provided that every mistake has been identified and corrected by editing. MARCIAL Croft 05/12/24 0727 Images from the original note were not included. [facility] ACADEMIC SERVICE PROGRESS NOTE Alie Briones SUBJECTIVE Subjective History of Present Illness: Alie Broines is a 63 y.o. female with a past medical history of hypertension, HLD, osteoarthritis of cervical spine, and cervical spondylosis without myelopathy, who presented to [place] ED for a fall. Per the patient she had crushing chest pain this morning which she rates an 8/10. She said after the pressure she started getting light headed, dizzy, and fell but never lost consciousness. The patient reports having the chest pain for several days. In the [place] ED the patient was afebrile, HR 80, RR 18, and BP 103/55. No labs were drawn. EKG showed concerns for heart block and left and right bundle branch blocks. CT brain and CT cervical spine showed no acute intracranial findings. CXR and hip xray showed no acute findings. Cardiology was consulted and patient was transferred to [facility]. Once the patient arrived at [facility] repeat EKG showed anterior lead ST segment elevations. Patient kept cycling back and forth between heart block and sinus tachycardia. On echo, patient was having apical wall motion abnormalities. Patient was urgently taken to film laboratory technician. Interval Hx: 05/12/24: No acute overnight events. This morning the patient endorses having some constant mild chest pain. She describes it as pressure and rates it a 3/10. She endorses constant SOB as well but is saturating well on room air. She denies any nausea, vomiting, fevers, chills, night sweats, or abdominal pain. She endorses wanting to go home but is open to considering a SNF. Allergies: Allergies Allergen Reactions Sulfa (Sulfonamide Antibiotics) Itching and Rash CURRENT MEDICATIONS aspirin, 81 mg, oral, Daily atorvastatin, 80 mg, oral, Nightly busPIRone, 10 mg, oral, BID dapagliflozin propanediol, 10 mg, oral, Daily DULoxetine, 60 mg, oral, Daily gabapentin, 300 mg, oral, 4x Daily heparin (porcine), 5,000 Units, subcutaneous, Q12H KAMILAH metoprolol succinate XL, 12.5 mg, oral, Daily prasugreL HCl, 10 mg, oral, Daily sodium chloride, 3 mL, intravenous, Q12H sodium chloride, 3 mL, intravenous, Q12H spironolactone, 25 mg, oral, Daily thiamine (B-1) 500 mg in sodium chloride 0.9 % 50 mL IVPB, 500 mg, intravenous, Q8H valsartan, 40 mg, oral, BID CONTINUOUS INFUSIONS OBJECTIVE Objective CBC: Results from last 7 days Lab Units 05/12/24 0552 05/11/24 0557 05/10/24 0303 WBC X10E9/L 7.4 8.5 6.9 HEMOGLOBIN g/dL 11.9 11.0* 10.1* HEMATOCRIT % 33.8* 31.3* 28.1* MCV fL 96 94 94 PLATELETS X10E9/L 262 250 170 BMP: Results from last 7 days Lab Units 05/12/24 0552 05/11/24 2240 05/11/24 1249 05/11/24 0557 05/10/24 0829 05/10/24 0303 SODIUM mmol/L 130* 127* 128* 128* < > 130* POTASSIUM mmol/L 4.0 4.1 4.2 3.9 < > 4.0 CHLORIDE mmol/L 98 96* 95* 96* < > 96* CO2 mmol/L 24 24 23 24 < > 26 BUN mg/dL 6 -- -- 7 -- 8 CREATININE mg/dL 0.46 -- -- 0.38* -- 0.42 CALCIUM mg/dL 8.4* -- -- 7.8* -- 8.0* PHOSPHORUS mg/dL 3.8 -- -- 3.7 -- 3.1 MAGNESIUM mg/dL 1.8 -- -- 1.8 -- 1.8 < > = values in this interval not displayed. PT/INR: Results from last 7 days Lab Units 05/07/24 1608 PROTIME sec 13.4* INR 1.2 APTT: MAG: Results from last 7 days Lab Units 05/12/24 0552 05/11/24 0557 05/10/24 0303 MAGNESIUM mg/dL 1.8 1.8 1.8 D Dimer: Troponin I ProBNP Lipid Panel: Lab Results Component Value Date CHOL 197 05/08/2024 TRIG 145 05/08/2024 HDL 45 05/08/2024 HDL 55 09/12/2014 CHOLHDLR 09/12/2014 RISK FEMALE RATIO MALE RATIO 1/2 AVERAGE 3.27 3.43 AVERAGE 4.44 4.97 2X 7.05 9.55 3X 11.04 23.39 Liver Panel: No results found for: ALB HgA1C: Lab Results Component Value Date HGBA1C 5.8 (H) 05/08/2024 ABG: EKG: No results found. LAST ECHO (Within 2 Years) No results found. LAST STRESS (Within 2 Years) No results found. CATH: (Within 2 Years) No results found. RADIOLOGY: No results found. PHYSICAL EXAM Admission Weight: Weight: 47.1 kg (103 lb 13.4 oz) I/O last 3 completed shifts: In: 778 [P.O.:778] Out: 2775 [Urine:2775] Weight change: -2.3 kg (-5 lb 1.1 oz) Wt Readings from Last 3 Encounters: 05/12/24 45.4 kg (100 lb 1.4 oz) 06/30/22 55.7 kg (122 lb 14.4 oz) 06/09/22 54.4 kg (120 lb) Vitals: Vitals: 05/12/24 0324 05/12/24 0429 05/12/24 0730 05/12/24 0801 BP: 105/63 105/59 Pulse: 74 82 76 Resp: 15 20 18 Temp: 36.5 C (97.7 F) 36.6 C (97.8 F) TempSrc: Oral Oral SpO2: 96% 96% Weight: 45.4 kg (100 lb 1.4 oz) Height: Admit Weight Weight: 47.1 kg (103 lb 13.4 oz) Last 3 Weights Last 3 Weight Readings 05/10/24 0431 05/11/24 0456 05/12/24 0324 Weight: 47.8 kg (105 lb 6.1 oz) 47.7 kg (105 lb 2.6 oz) 45.4 kg (100 lb 1.4 oz) Body mass index is 19.55 kg/m . INTAKE/OUTPUT I/O last 3 completed shifts: In: 778 [P.O.:778] Out: 2775 [Urine:2775] Intake/Output Summary (Last 24 hours) at 05/12/2024 1010 Last data filed at 05/12/2024 0939 Gross per 24 hour Intake 878 ml Output 2200 ml Net -1322 ml BP 105/59 Pulse 76 Temp 36.6 C (97.8 F) (Oral) Resp 18 Ht 152.4 cm (5') Wt 45.4 kg (100 lb 1.4 oz) SpO2 96% BMI 19.55 kg/m Physical Exam Constitutional: General: She is awake. HENT: Head: Normocephalic and atraumatic. Cardiovascular: Rate and Rhythm: Normal rate and regular rhythm. Pulmonary: Effort: Pulmonary effort is normal. Breath sounds: Normal breath sounds. Abdominal: General: Abdomen is flat. Bowel sounds are normal. Palpations: Abdomen is soft. Musculoskeletal: Right lower leg: No edema. Left lower leg: No edema. Neurological: Mental Status: She is alert. Comments: Orientated x1, not orientated to place or time Psychiatric: Behavior: Behavior is cooperative. ASSESSMENT Anterior STEMI Cath on 05/07, GARETT to LAD PCI of OM, successful stent placement in the 2nd obtuse marginal Peak trop was 51,668 A1c elevated at 5.8, TSH and T4 normal 1.49 and 1.07 respectively, lipid panel normal, ethanol level normal Echo 05/11/24 showed EF 20-25% Complete heart block Syncope with a fall Concern for alcohol use disorder Concern for opiate use disorder UDS positive for benzos and opiates Patient takes Kratom at home every hour per daughter HTN HLD Hyponatremia PLAN Continue Aspirin 81 mg q.d. and Effient 10 mg q.d. Continue Valsartan 40 mg b.i.d., Farxiga 10 mg q.d., Metoprolol succinate XL 12.5 mg q.d., Aldactone 25 mg q.d. and Atorvastatin 80 mg q.d. for GDMT Patient will need a life vest on discharge Patient will need to follow up with Cardiology in 1-2 weeks [facility] will sign off, please let us know if you have any questions Berta Kang MD Internal Medicine, PGY-1 05/12/2024 10:[address] [facility] TEACHING SERVICE This note was completed using a voice fellmongery worker system. Every effort was made to ensure accuracy. However, inadvertent computerized fellmongery worker errors may be present. Cosigned by Lizy Infante MD at 05/12/2024 11:02 AM EDT Associated attestation - Lizy Infante MD - 05/12/2024 11:02 AM EDT Images from the original note were not included. [facility] I have personally performed a face to face diagnostic evaluation on this patient. I have reviewed the note authored by the advance practice provider/resident/fellow and agree with the assessment and plan. My findings are as follows. Subjective: No acute events overnight. Did have an episode of atypical chest pain. Objective: BP 105/59 Pulse 76 Temp 36.6 C (97.8 F) (Oral) Resp 18 Ht 152.4 cm (5') Wt 45.4 kg (100 lb 1.4 oz) SpO2 96% BMI 19.55 kg/m General: no acute distress Cardiac: Regular rate and rhythm, normal S1/S2 Lungs: Clear to ausculation Abdomen: No tenderness or swelling Ext: no edema Labs: BMP: Results from last 7 days Lab Units 05/12/24 0552 05/11/24 2240 05/11/24 1249 05/11/24 0557 05/10/24 0829 05/10/24 0303 SODIUM mmol/L 130* 127* 128* 128* < > 130* POTASSIUM mmol/L 4.0 4.1 4.2 3.9 < > 4.0 CHLORIDE mmol/L 98 96* 95* 96* < > 96* CO2 mmol/L 24 24 23 24 < > 26 BUN mg/dL 6 -- -- 7 -- 8 CREATININE mg/dL 0.46 -- -- 0.38* -- 0.42 CALCIUM mg/dL 8.4* -- -- 7.8* -- 8.0* PHOSPHORUS mg/dL 3.8 -- -- 3.7 -- 3.1 MAGNESIUM mg/dL 1.8 -- -- 1.8 -- 1.8 < > = values in this interval not displayed. Troponin I: BNP: Assessment: Anterior STEMI Coronary artery disease s/p PCI/GARETT prox LAD 05/07/24 in the setting of anterior STEMI, s/p stage PCI/GARETT OM2 05/09/24 Complete heart block in the setting of anterior STEMI, resolved Heart failure with reduced ejection fraction Ischemic cardiomyopathy Hypertension Hyperlipidemia Right bundle-branch block Hyponatremia Alcohol abuse Substance use including Kratom Plan: Continue aspirin, Effient, atorvastatin GDMT: Toprol, valsartan, Farxiga, spironolactone LifeVest on discharge. Okay to discharge from Cardiology standpoint. Will need close follow-up with Cardiology as outpatient. I agree with assessment and plan as detailed above. LIZY INFANTE MD This note was completed using a voice fellmongery worker system. Every effort was made to ensure accuracy. However, inadvertent computerized fellmongery worker errors may be present. Images from the original note were not included. FOLLOW-UP: Post-Intensive Care Rounding Note Patient: Alie Briones : 1960 Age: 63 y.o. Length of Stay: 5 days Admission Diagnosis: CHB (complete heart block) ([facility]) [I44.2] Acute electrocardiogram changes [R94.31] ST elevation VA (STEMI) ([facility]) [I21.3] Reviewing patient due to her recent transfer out from Intensive Care. Recorded vital signs are stable and the patient is not noted to be in any apparent distress. Telemetry and monitoring noted. Staff may call with any issues or concerns regarding her clinical presentation or stability. Thank you, José Rivera Jr, RN Rapid Response: [facility] Images from the original note were not included. FOLLOW-UP: Post-Intensive Care Rounding Note Patient: Alie Briones : 1960 Age: 63 y.o. Length of Stay: 4 days Admission Diagnosis: CHB (complete heart block) ([facility]) [I44.2] Acute electrocardiogram changes [R94.31] ST elevation VA (STEMI) ([facility]) [I21.3] Reviewing patient due to her recent transfer out from Intensive Care. Recorded vital signs are stable and the patient is not noted to be in any apparent distress. Telemetry and monitoring noted. Staff may call with any issues or concerns regarding her clinical presentation or stability. Thank you, Kameron Brown RN Rapid Response: [facility] Images from the original note were not included. [facility] ACADEMIC SERVICE PROGRESS NOTE Alie Briones SUBJECTIVE Subjective History of Present Illness: Alie Briones is a 63 y.o. female with a past medical history of hypertension, HLD, osteoarthritis of cervical spine, and cervical spondylosis without myelopathy, who presented to [place] ED for a fall. Per the patient she had crushing chest pain this morning which she rates an 8/10. She said after the pressure she started getting light headed, dizzy, and fell but never lost consciousness. The patient reports having the chest pain for several days. In the [place] ED the patient was afebrile, HR 80, RR 18, and BP 103/55. No labs were drawn. EKG showed concerns for heart block and left and right bundle branch blocks. CT brain and CT cervical spine showed no acute intracranial findings. CXR and hip xray showed no acute findings. Cardiology was consulted and patient was transferred to [facility]. Once the patient arrived at [facility] repeat EKG showed anterior lead ST segment elevations. Patient kept cycling back and forth between heart block and sinus tachycardia. On echo, patient was having apical wall motion abnormalities. Patient was urgently taken to film laboratory technician. Interval Hx: 05/11/24: patient is seen and examined at bedside, her mental status today seems to be better, she is alert and oriented X 4, she denied chest pain, shortness breath, nausea or vomiting. No acute overnight events, Neurology following and they started her on thiamine supplementation. Allergies: Allergies Allergen Reactions Sulfa (Sulfonamide Antibiotics) Itching and Rash CURRENT MEDICATIONS aspirin, 81 mg, oral, Daily atorvastatin, 80 mg, oral, Nightly busPIRone, 10 mg, oral, BID dapagliflozin propanediol, 10 mg, oral, Daily DULoxetine, 60 mg, oral, Daily gabapentin, 300 mg, oral, 4x Daily heparin (porcine), 5,000 Units, subcutaneous, Q12H KAMILAH metoprolol succinate XL, 12.5 mg, oral, Daily prasugreL HCl, 10 mg, oral, Daily sodium chloride, 3 mL, intravenous, Q12H sodium chloride, 3 mL, intravenous, Q12H thiamine (B-1) 500 mg in sodium chloride 0.9 % 50 mL IVPB, 500 mg, intravenous, Q8H valsartan, 40 mg, oral, BID CONTINUOUS INFUSIONS OBJECTIVE Objective CBC: Results from last 7 days Lab Units 05/11/24 0557 05/10/24 0303 05/09/24 0300 WBC X10E9/L 8.5 6.9 7.1 HEMOGLOBIN g/dL 11.0* 10.1* 10.1* HEMATOCRIT % 31.3* 28.1* 28.6* MCV fL 94 94 96 PLATELETS X10E9/L 250 170 138* BMP: Results from last 7 days Lab Units 05/11/24 0557 05/10/24 2037 05/10/24 1101 05/10/24 0829 05/10/24 0303 05/09/24 0601 05/09/24 0300 SODIUM mmol/L 128* 128* 129* < > 130* < > 129* POTASSIUM mmol/L 3.9 4.4 3.8 < > 4.0 < > 3.9 CHLORIDE mmol/L 96* 95* 97* < > 96* < > 96* CO2 mmol/L 24 24 26 < > 26 < > 28 BUN mg/dL 7 -- -- -- 8 -- 8 CREATININE mg/dL 0.38* -- -- -- 0.42 -- 0.37* CALCIUM mg/dL 7.8* -- -- -- 8.0* -- 7.8* PHOSPHORUS mg/dL 3.7 -- -- -- 3.1 -- 2.5 MAGNESIUM mg/dL 1.8 -- -- -- 1.8 -- 1.9 < > = values in this interval not displayed. PT/INR: Results from last 7 days Lab Units 05/07/24 1608 PROTIME sec 13.4* INR 1.2 APTT: MAG: Results from last 7 days Lab Units 05/11/24 0557 05/10/24 0303 05/09/24 0300 MAGNESIUM mg/dL 1.8 1.8 1.9 D Dimer: Troponin I ProBNP Lipid Panel: Lab Results Component Value Date CHOL 197 05/08/2024 TRIG 145 05/08/2024 HDL 45 05/08/2024 HDL 55 09/12/2014 CHOLHDLR 09/12/2014 RISK FEMALE RATIO MALE RATIO 1/2 AVERAGE 3.27 3.43 AVERAGE 4.44 4.97 2X 7.05 9.55 3X 11.04 23.39 Liver Panel: No results found for: ALB HgA1C: Lab Results Component Value Date HGBA1C 5.8 (H) 05/08/2024 ABG: EKG: No results found. LAST ECHO (Within 2 Years) No results found. LAST STRESS (Within 2 Years) No results found. CATH: (Within 2 Years) No results found. RADIOLOGY: Echo limited W/O contrast Result Date: 05/10/2024 Left Ventricle: Left ventricle appears normal in size. Systolic function is severely decreased with an ejection fraction of 20-25%. Right Ventricle: Right ventricular size appears normal. Systolic function is normal. EEG Result Date: 05/10/2024 Images from the original result were not included. [facility] EEG REPORT EEG Service Date: 05/10/24 Date of Report: 05/10/24 History: Alie Briones is a 63 y.o. female with hallucinations and memory loss who is undergoing EEG to evaluate for seizures. Centrally active medications: Buspar, diphenydramine, lorazepam, morphine. Procedure: This EEG was acquired with electrodes placed according to the [id number] electrode placement system. The EEG was acquired [...] of intermittent seizures. Kat Marquez M.D., Ph.D. Ac[employer]ical Tile Pattern[employer] [facility] PHYSICAL EXAM Admission Weight: Weight: 47.1 kg (103 lb 13.4 oz) I/O last 3 completed shifts: In: - Out: 1800 [Urine:1800] Weight change: -0.1 kg (-3.5 oz) Wt Readings from Last 3 Encounters: 05/11/24 47.7 kg (105 lb 2.6 oz) 06/30/22 55.7 kg (122 lb 14.4 oz) 06/09/22 54.4 kg (120 lb) Vitals: Vitals: 05/10/24200805/10/24 2314 05/11/24 0456 05/11/24 0812 BP: 120/79 131/88 126/83 118/74 Pulse: 82 90 80 75 Resp: 19 18 15 16 Temp: 36.4 C (97.5 F) 36.4 C (97.5 F) 36.3 C (97.4 F) 36.8 C (98.2 F) TempSrc: Oral Oral Oral Axillary SpO2: 93% 97% 95% 100% Weight: 47.7 kg (105 lb 2.6 oz) Height: Admit Weight Weight: 47.1 kg (103 lb 13.4 oz) Last 3 Weights Last 3 Weight Readings 05/09/24 0500 05/10/24 04305/11/24 0456 Weight: 45.1 kg (99 lb 6.8 oz) 47.8 kg (105 lb 6.1 oz) 47.7 kg (105 lb 2.6 oz) Body mass index is 20.54 kg/m . INTAKE/OUTPUT I/O last 3 completed shifts: In: - Out: 1800 [Urine:1800] Intake/Output Summary (Last 24 hours) at 05/11/2024 08 Last data filed at 05/11/2024 0456 Gross per 24 hour Intake -- Output 1225 ml Net -1225 ml BP 118/74 Pulse 75 Temp 36.8 C (98.2 F) (Axillary) Resp 16 Ht 152.4 cm (5') Wt 47.7 kg (105 lb 2.6 oz) SpO2 100% BMI 20.54 kg/m Physical Exam Constitutional: General: She is sleeping. HENT: Head: Normocephalic and atraumatic. Cardiovascular: Rate and Rhythm: Normal rate and regular rhythm. Pulmonary: Effort: Pulmonary effort is normal. Breath sounds: Normal breath sounds. Abdominal: General: Abdomen is flat. Bowel sounds are normal. Palpations: Abdomen is soft. Musculoskeletal: Right lower leg: No edema. Left lower leg: No edema. Neurological: Mental Status: She is lethargic and disoriented. Psychiatric: Attention and Perception: She perceives visual hallucinations. Behavior: Behavior is uncooperative. ASSESSMENT Anterior STEMI Cath on 05/07, GARETT to LAD PCI of OM, successful stent placement in the 2nd obtuse marginal Peak trop was 51,668 A1c elevated at 5.8, TSH and T4 normal 1.49 and 1.07 respectively, lipid panel normal, ethanol level normal Complete heart block Syncope with a fall Concern for alcohol use disorder Concern for opiate use disorder UDS positive for benzos and opiates Patient takes Kratom at home every hour per daughter HTN HLD Hyponatremia PLAN Echo 05/11/24 showed EF 20-25% Continue aspirin 81 mg q.d. and Effient 10 mg q.d. Start Valsartan 40 mg b.i.d., and Farxiga 10 mg q.d.,and continue metoprolol succinate XL 12.5 mg qd and atorvastatin 80 mg q.d. for GDMT Aldactone 25 mg daily started today. Trend creatine and strict I/Os Continue CIWA protocol for concern of alcohol withdrawal Neurology consulted for AMS Low folate, normal B12, started on thiamine supplementation. Patient will need a life vest on discharge Academic Cardiology will continue to follow Raman Mcnally MD Internal Medicine, PGY-1 05/11/2024 8:13 AM [facility] TE[facility]ING [facility] This note was completed using a voice fellmongery worker system. Every effort was made to ensure accuracy. However, inadvertent computerized fellmongery worker errors may be present. Cosigned by Lizy Infante MD at 05/11/2024 11:53 AM EDT Associated attestation - Lizy Infante MD - 05/11/2024 11:53 AM EDT Images from the original note were not included. [facility] I have personally performed a face to face diagnostic evaluation on this patient. I have reviewed the note authored by the advance practice provider/resident/fellow and agree with the assessment and plan. My findings are as follows. Subjective: No acute events overnight. Denies chest pain or shortness of breath. More awake today. Objective: BP 110/63 Pulse 78 Temp 36.1 C (97 F) (Axillary) Resp 15 Ht 152.4 cm (5') Wt 47.7 kg (105 lb 2.6 oz) SpO2 95% BMI 20.54 kg/m General: no acute distress Cardiac: Regular rate and rhythm, normal S1/S2 Lungs: Clear to ausculation Abdomen: No tenderness or swelling Ext: no edema Labs: BMP: Results from last 7 days Lab Units 05/11/24 0557 05/10/24 2037 05/10/24 1101 05/10/24 0829 05/10/24 0303 05/09/24 0601 05/09/24 0300 SODIUM mmol/L 128* 128* 129* < > 130* < > 129* POTASSIUM mmol/L 3.9 4.4 3.8 < > 4.0 < > 3.9 CHLORIDE mmol/L 96* 95* 97* < > 96* < > 96* CO2 mmol/L 24 24 26 < > 26 < > 28 BUN mg/dL 7 -- -- -- 8 -- 8 CREATININE mg/dL 0.38* -- -- -- 0.42 -- 0.37* CALCIUM mg/dL 7.8* -- -- -- 8.0* -- 7.8* PHOSPHORUS mg/dL 3.7 -- -- -- 3.1 -- 2.5 MAGNESIUM mg/dL 1.8 -- -- -- 1.8 -- 1.9 < > = values in this interval not displayed. Troponin I: BNP: Assessment: Anterior STEMI Coronary artery disease s/p PCI/GARETT prox LAD 05/07/24 in the setting of anterior STEMI, s/p stage PCI/GARETT OM2 05/09/24 Complete heart block in the setting of anterior STEMI, resolved Heart failure with reduced ejection fraction Ischemic cardiomyopathy Hypertension Hyperlipidemia Right bundle-branch block Hyponatremia Alcohol abuse Substance use including Kratom Plan: Continue aspirin, Effient, atorvastatin GDM T: Toprol, valsartan, Farxiga Add spironolactone today. LifeVest on discharge. Okay to work on discharge planning. I agree with assessment and plan as detailed above. LIZY INFANTE MD This note was completed using a voice fellmongery worker system. Every effort was made to ensure accuracy. However, inadvertent computerized fellmongery worker errors may be present. Images from the original note were not included. Nephrology Daily Progress Note Assessment Hypovolemic hyponatremia: Received IV LR now discontinued. Now continues on fluid restriction 1.5 L Hypotension: Resolved. Complete heart block status post temporary pacing wire placement ST-elevation VA status post stenting to the LAD on May 07 and subsequent stenting to the 2nd obtuse marginal on May 09. Hypertension: Started on Toprol-XL and Diovan. Plan Continue to monitor renal chemistries Continue fluid restriction 1.5 L Subjective She is resting but awakens to voice. Denies any shortness breath or chest pain. Hemodynamically stable Problem List Hypovolemic hyponatremia in the setting of complete heart block and hypotension. Uric acid was 3.7, TSH 1.49 and free T4 was 1.07, cortisol was 15.2, serum osmolality was 256, random urine sodium was less than 10 and random urine osmolality was 353 Complete heart block status post temporary pacing wire placement on May 07, 2024 ST-elevation VA from April of 2024 status post cardiac catheterization with stenting to the LAD on May 07, 2024 NSAIDs subsequent stage revascularization of 80% of the 2nd obtuse marginal with a drug-eluting stent on May 09, 2024. Cardiac catheterization on May 07, 2024 revealed severe diffuse disease of the LAD with moderate calcification and 100% stenosis of the proximal LAD to mid LAD which was successfully stented, 40% mid to distal left circumflex, 85% 2nd obtuse marginal and 20% proximal to mid RCA stenosis. Hypertension Asthma Degenerative joint disease Chronic back pain TMJ dysfunction Multiple cervical spine steroid injections and radiofrequency ablation for chronic neck pain. Tonsillectomy Left-sided rotator cuff repair Echocardiogram from April of 2024 revealed ejection fraction of 30-35% with trace to mild mitral regurgitation and trace tricuspid regurgitation. Vital Signs and Physical Exam Vitals: 05/10/24 1800 05/10/24 2009 05/10/24 2314 05/11/24 0456 BP: 127/82 120/79 131/88 126/83 Pulse: 78 82 90 80 Resp: 16 19 18 15 Temp: 36.4 C (97.5 F) 36.4 C (97.5 F) 36.3 C (97.4 F) TempSrc: Oral Oral Oral SpO2: 94% 93% 97% 95% Weight: 47.7 kg (105 lb 2.6 oz) Height: Intake/Output: Intake/Output Summary (Last 24 hours) at 05/11/2024 0715 Last data filed at 05/11/2024 0456 Gross per 24 hour Intake -- Output 1345 ml Net -1345 ml Physical Exam: General appearance: Sleepy but rousable 63-year-old female in no acute distress. Eyes: pupils reactive to light, nonicteric HEENT: no JVD, no carotid bruits, no lymphadenopathy. Heart:: normal S1-S2, No gallops. Lungs: clear to auscultation B/L Abdomen: no tenderness, no guarding, no hepatosplenomegaly could be appreciated. Extremities: No LE edema Neurology: Moves all extremities Skin: no rash Inpatient Meds: aspirin, 81 mg, oral, Daily atorvastatin, 80 mg, oral, Nightly busPIRone, 10 mg, oral, BID dapagliflozin propanediol, 10 mg, oral, Daily DULoxetine, 60 mg, oral, Daily gabapentin, 300 mg, oral, 4x Daily heparin (porcine), 5,000 Units, subcutaneous, Q12H KAMILAH metoprolol succinate XL, 12.5 mg, oral, Daily prasugreL HCl, 10 mg, oral, Daily sodium chloride, 3 mL, intravenous, Q12H sodium chloride, 3 mL, intravenous, Q12H thiamine (B-1) 500 mg in sodium chloride 0.9 % 50 mL IVPB, 500 mg, intravenous, Q8H valsartan, 40 mg, oral, BID Nutrition Dietary Orders (From admission, onward) Start Ordered 05/10/24 1421 Adult diet Regular Texture; No Added Salt (3-4 gm Sodium); Low Fat/Low Cholesterol; Fluid Restriction 1500 mL Diet effective now Question Answer Comment Diet Type: Regular Texture Sodium Modifiers: No Added Salt (3-4 gm Sodium) Fat Modifiers: Low Fat/Low Cholesterol Fluid Restrictions: Fluid Restriction 1500 mL 05/10/24 1420 Labs Results from last 7 days Lab Units 05/11/24 0557 05/10/24 2037 05/10/24 1101 05/10/24 0829 05/10/24 0303 05/09/24 0601 05/09/24 0300 05/08/24 1158 05/08/24 0520 05/07/24 2050 SODIUM mmol/L 128* 128* 129* 130* 130* < > 129* < > 128* 123* POTASSIUM mmol/L 3.9 4.4 3.8 3.8 4.0 < > 3.9 < > 3.3* 3.9 CHLORIDE mmol/L 96* 95* 97* 97* 96* < > 96* < > 93* 88* CO2 mmol/L 24 24 26 26 26 < > 28 < > 28 28 BUN mg/dL 7 -- -- -- 8 -- 8 -- 10 12 CREATININE mg/dL 0.38* -- -- -- 0.42 -- 0.37* -- 0.48 0.64 CALCIUM mg/dL 7.8* -- -- -- 8.0* -- 7.8* -- 8.2* 8.5 MAGNESIUM mg/dL 1.8 -- -- -- 1.8 -- 1.9 -- 1.8 1.8 PHOSPHORUS mg/dL 3.7 -- -- -- 3.1 -- 2.5 -- -- -- < > = values in this interval not displayed. Results from last 7 days Lab Units 05/11/24 0557 05/10/24 0303 05/09/24 0300 WBC X10E9/L 8.5 6.9 7.1 HEMOGLOBIN g/dL 11.0* 10.1* 10.1* HEMATOCRIT % 31.3* 28.1* 28.6* PLATELETS X10E9/L 250 170 138* No results found for: PTH , CAION , PHOS Lab Results Component Value Date IRON 30 (L) 04/06/2024 TIBC 358 04/06/2024 FERRITIN 17 04/06/2024 Brandt Quezada CNP [facility] Thank you for your consultation and allowing us to participate in the care of Alie Briones and please do not hesitate to call us with any questions at: Office: [phone] Office Answering Service: [phone] This note was created with the assistance of a speech-recognition program. Although the intention is to generate a document that actually reflects the content of the visit, no guarantees can be provided that every mistake has been identified and corrected by editing. MARCIAL Croft 05/11/24 0718 Images from the original note were not included. Nephrology Daily Progress Note INTERVAL HISTORY: Continues to be slow and seems confused. Denies any shortness breath or chest pain. Currently on room air. VITAL SIGNS TREND: Vitals: 05/10/24 0900 05/10/24 1000 05/10/24 1100 05/10/24 1200 BP: 140/83 136/84 (!) 132/94 132/68 Pulse: 91 85 79 79 Resp: 18 21 19 Temp: TempSrc: SpO2: (!) 87% 91% 93% 90% Weight: Height: INTAKE/OUTPUT: Intake/Output Summary (Last 24 hours) at 05/10/2024 1359 Last data filed at 05/10/2024 1200 Gross per 24 hour Intake 202.86 ml Output 850 ml Net 1173.86 ml I/O this shift: In: - Out: 195 [Urine:195] WEIGHT: Last 3 Weight Readings 05/08/24 0500 05/09/24 0500 05/10/24 0431 Weight: 45.6 kg (100 lb 8.5 oz) 45.1 kg (99 lb 6.8 oz) 47.8 kg (105 lb 6.1 oz) PHYSICAL EXAM: Blood pressure 132/68, pulse 79, temperature 36.7 C (98.1 F), temperature source Oral, resp. rate 19, height 152.4 cm (5'), weight 47.8 kg (105 lb 6.1 oz), SpO2 90%. Temp: [0 C (32 F)-36.7 C (98.1 F)] 36.7 C (98.1 F) Pulse: [70-104] 79 Resp: [11-26] 19 BP: (85-144)/(59-94) 132/68 SpO2: [80 %-100 %] 90 % O2 Device: None (Room air) General appearance: alert but slow in no apparent distress. HEENT: no JVD, no lymphadenopathy. Heart exam: normal S1-S2 Lungs: clear to auscultation bilaterally Abdomen: soft, no tenderness, no guarding, positive bowel sounds Extremities: no edema Vascular: adequate pulses and no carotid bruits. Musculoskeletal: no joint tenderness or swelling. LABORATORY EVALUATION: Results from last 7 days Lab Units 05/10/24 1101 05/10/24 0829 05/10/24 0303 05/10/24 0007 05/09/24 1914 05/09/24 1249 05/09/24 0601 05/09/24 0300 05/08/24 1158 05/08/24 0520 05/07/24 2050 SODIUM mmol/L 129* 130* 130* 131* 131* 130* < > 129* < > 128* 123* POTASSIUM mmol/L 3.8 3.8 4.0 4.0 4.3 4.0 < > 3.9 < > 3.3* 3.9 CHLORIDE mmol/L 97* 97* 96* 96* 96* 97* < > 96* < > 93* 88* CO2 mmol/L 26 26 26 28 29 26 < > 28 < > 28 28 ANION GAP mmol/L 6 7 8 7 6 7 < > 5 < > 7 7 BUN mg/dL -- -- 8 -- -- -- -- 8 -- 10 12 CREATININE mg/dL -- -- 0.42 -- -- -- -- 0.37* -- 0.48 0.64 CALCIUM mg/dL -- -- 8.0* -- -- -- -- 7.8* -- 8.2* 8.5 MAGNESIUM mg/dL -- -- 1.8 -- -- -- -- 1.9 -- 1.8 1.8 PHOSPHORUS mg/dL -- -- 3.1 -- -- -- -- 2.5 -- -- -- CALCIUM, IONIZED mg/dL -- -- 4.6 4.5 -- 4.3* -- 4.3* -- -- -- < > = values in this interval not displayed. Results from last 7 days Lab Units 05/10/2430205/09/2429905/08/2451905/07/242049 TOTAL PROTEIN g/dL 5.3* 5.2* 5.8* 6.3 ALBUMIN g/dL 3.0* 3.0* 3.3 3.6 AST U/L 40 44* 110* 124* ALT U/L 23 15 25 31 TOTAL BILIRUBIN mg/dL 0.8 0.8 1.0 0.8 ALK PHOS U/L 102 52 59 63 Results from last 7 days Lab Units 05/10/2430205/09/2429905/08/2432905/07/24 1608 WBC X10E9/L 6.9 7.1 10.0 17.7* HEMOGLOBIN g/dL 10.1* 10.1* 12.0 13.3 HEMATOCRIT % 28.1* 28.6* 34.0* 37.8 PLATELETS X10E9/L 170 138* ESTIMATE OF PLATELETS, NORMAL 270 Lab Results Component Value Date IRON 30 (L) 04/06/2024 TIBC 358 04/06/2024 FERRITIN 17 04/06/2024 IRONSAT 8 (L) 04/06/2024 Results from last 7 days Lab Units 05/10/2430205/09/2429905/08/2451905/07/24204905/07/24 1609 BEDSIDE GLUCOSE mg/dL -- -- -- -- 159* GLUCOSE mg/dL 91 86 94 124* -- CURRENT MEDICATIONS: aspirin, 81 mg, oral, Daily atorvastatin, 80 mg, oral, Nightly busPIRone, 10 mg, oral, BID dapagliflozin propanediol, 10 mg, oral, Daily DULoxetine, 60 mg, oral, Daily gabapentin, 300 mg, oral, 4x Daily heparin (porcine), 5,000 Units, subcutaneous, Q12H KAMILAH metoprolol succinate XL, 12.5 mg, oral, Daily prasugreL HCl, 10 mg, oral, Daily sodium chloride, 3 mL, intravenous, Q12H sodium chloride, 3 mL, intravenous, Q12H thiamine (B-1) 500 mg in sodium chloride 0.9 % 50 mL IVPB, 500 mg, intravenous, Q8H valsartan, 40 mg, oral, BID PROBLEM LIST: Hypovolemic hyponatremia in the setting of complete heart block and hypotension. Uric acid was 3.7, TSH 1.49 and free T4 was 1.07, cortisol was 15.2, serum osmolality was 256, random urine sodium was less than 10 and random urine osmolality was 353 Complete heart block status post temporary pacing wire placement on May 07, 2024 ST-elevation VA from April of 2024 status post cardiac catheterization with stenting to the LAD on May 07, 2024 NSAIDs subsequent stage revascularization of 80% of the 2nd obtuse marginal with a drug-eluting stent on May 09, 2024. Cardiac catheterization on May 07, 2024 revealed severe diffuse disease of the LAD with moderate calcification and 100% stenosis of the proximal LAD to mid LAD which was successfully stented, 40% mid to distal left circumflex, 85% 2nd obtuse marginal and 20% proximal to mid RCA stenosis. Hypertension Asthma Degenerative joint disease Chronic back pain TMJ dysfunction Multiple cervical spine steroid injections and radiofrequency ablation for chronic neck pain. Tonsillectomy Left-sided rotator cuff repair Echocardiogram from April of 2024 revealed ejection fraction of 30-35% with trace to mild mitral regurgitation and trace tricuspid regurgitation. IMPRESSION: 1. Hypovolemic hyponatremia: Correcting with the lactated Ringer's. 2. Hypotension: Resolved. 3. Complete heart block status post temporary pacing wire placement 4. ST-elevation VA status post stenting to the LAD on May 07 and subsequent stenting to the 2nd obtuse marginal on May 09. 5. Hypertension: Started on Toprol-XL and Diovan. PLAN: 1. Discontinue IV fluids 2. Fluid restriction for hyponatremia 3. Continue to follow electrolytes every 8 hours. No objection to transfer out of ICU from Nephrology perspective. Alfa Gregory M.D. For questions please call: Answering Service at [phone] Or Office at [phone] This note was created with the assistance of a speech-recognition program. Although the intention is to generate a document that actually reflects the content of the visit, no guarantees can be provided that every mistake has been identified and corrected by editing. Images from the original note were not included. [facility] SERVICE PROGRESS NOTE Alie Briones SUBJECTIVE Subjective History of Present Illness: Alie Briones is a 63 y.o. female with a past medical history of hypertension, HLD, osteoarthritis of cervical spine, and cervical spondylosis without myelopathy, who presented to [place] ED for a fall. Per the patient she had crushing chest pain this morning which she rates an 8/10. She said after the pressure she started getting light headed, dizzy, and fell but never lost consciousness. The patient reports having the chest pain for several days. In the [place] ED the patient was afebrile, HR 80, RR 18, and BP 103/55. No labs were drawn. EKG showed concerns for heart block and left and right bundle branch blocks. CT brain and CT cervical spine showed no acute intracranial findings. CXR and hip xray showed no acute findings. Cardiology was consulted and patient was transferred to [facility]. Once the patient arrived at [facility] repeat EKG showed anterior lead ST segment elevations. Patient kept cycling back and forth between heart block and sinus tachycardia. On echo, patient was having apical wall motion abnormalities. Patient was urgently taken to film laboratory technician. Interval Hx: 05/10/24: This morning the patient was not oriented x3. She was speaking in nonsensical phrases and kept saying there were people in the room who were note there. She was unable to answer any questions at this time. Allergies: Allergies Allergen Reactions Sulfa (Sulfonamide Antibiotics) Itching and Rash CURRENT MEDICATIONS aspirin, 81 mg, oral, Daily atorvastatin, 80 mg, oral, Nightly busPIRone, 10 mg, oral, BID dapagliflozin propanediol, 10 mg, oral, Daily DULoxetine, 60 mg, oral, Daily gabapentin, 300 mg, oral, 4x Daily heparin (porcine), 5,000 Units, subcutaneous, Q12H KAMILAH metoprolol succinate XL, 12.5 mg, oral, Daily prasugreL HCl, 10 mg, oral, Daily sodium chloride, 3 mL, intravenous, Q12H sodium chloride, 3 mL, intravenous, Q12H valsartan, 40 mg, oral, BID CONTINUOUS INFUSIONS dextrose 5 % in water, 100 mL/hr lactated ringer's, 75 mL/hr, Last Rate: 75 mL/hr (05/09/242222) OBJECTIVE Objective CBC: Results from last 7 days Lab Units 05/10/24 0303 05/09/24 0300 05/08/24 0330 WBC X10E9/L 6.9 7.1 10.0 HEMOGLOBIN g/dL 10.1* 10.1* 12.0 HEMATOCRIT % 28.1* 28.6* 34.0* MCV fL 94 96 94 PLATELETS X10E9/L 170 138* ESTIMATE OF PLATELETS, NORMAL BMP: Results from last 7 days Lab Units 05/10/24 0829 05/10/24 0303 05/10/24 0007 05/09/24 0601 05/09/24 0300 05/08/24 1158 05/08/24 0520 SODIUM mmol/L 130* 130* 131* < > 129* < > 128* POTASSIUM mmol/L 3.8 4.0 4.0 < > 3.9 < > 3.3* CHLORIDE mmol/L 97* 96* 96* < > 96* < > 93* CO2 mmol/L 28 < > 28 < > 28 BUN mg/dL -- 8 -- -- 8 -- 10 CREATININE mg/dL -- 0.42 -- -- 0.37* -- 0.48 CALCIUM mg/dL -- 8.0* -- -- 7.8* -- 8.2* PHOSPHORUS mg/dL -- 3.1 -- -- 2.5 -- -- MAGNESIUM mg/dL -- 1.8 -- -- 1.9 -- 1.8 < > = values in this interval not displayed. PT/INR: Results from last 7 days Lab Units 05/07/24 1608 PROTIME sec 13.4* INR 1.2 APTT: MAG: Results from last 7 days Lab Units 05/10/24 0303 05/09/24 0300 05/08/24 0520 MAGNESIUM mg/dL 1.8 1.9 1.8 D Dimer: Troponin I ProBNP Lipid Panel: Lab Results Component Value Date CHOL 197 05/08/2024 TRIG 145 05/08/2024 HDL 45 05/08/2024 HDL 55 09/12/2014 CHOLHDLR 09/12/2014 RISK FEMALE RATIO MALE RATIO 1/2 AVERAGE 3.27 3.43 AVERAGE 4.44 4.97 2X 7.05 9.55 3X 11.04 23.39 Liver Panel: No results found for: ALB HgA1C: Lab Results Component Value Date HGBA1C 5.8 (H) 05/08/2024 ABG: EKG: No results found. LAST ECHO (Within 2 Years) No results found. LAST STRESS (Within 2 Years) No results found. CATH: (Within 2 Years) No results found. RADIOLOGY: Cardiac Invasive Result Date: 05/10/2024 Successful staged revascularization of the 80% stenosis [...] aggressive medical management. Recommend follow-up with primary mainframe developer outpatient. PHYSICAL EXAM Admission Weight: Weight: 47.1 kg (103 lb 13.4 oz) I/O last 3 completed shifts: In: 2906.3 [I.V.:2459.2; IV Piggyback:447.1] Out: 1642 [Urine:1642] Weight change: 2.7 kg (5 lb 15.2 oz) Wt Readings from Last 3 Encounters: 05/10/24 47.8 kg (105 lb 6.1 oz) 06/30/22 55.7 kg (122 lb 14.4 oz) 06/09/22 54.4 kg (120 lb) Vitals: Vitals: 05/10/24 0700 05/10/24 0800 05/10/24 0900 05/10/24 1000 BP: 131/75 144/90 140/83 136/84 Pulse: 85 96 91 85 Resp: 17 19 21 18 Temp: 36.7 C (98.1 F) TempSrc: Oral SpO2: 94% 92% (!) 87% 91% Weight: Height: Admit Weight Weight: 47.1 kg (103 lb 13.4 oz) Last 3 Weights Last 3 Weight Readings 05/08/24 0500 05/09/24 0500 05/10/24 0431 Weight: 45.6 kg (100 lb 8.5 oz) 45.1 kg (99 lb 6.8 oz) 47.8 kg (105 lb 6.1 oz) Body mass index is 20.58 kg/m . INTAKE/OUTPUT I/O last 3 completed shifts: In: 2906.3 [I.V.:2459.2; IV Piggyback:447.1] Out: 1642 [Urine:1642] Intake/Output Summary (Last 24 hours) at 05/10/2024 1127 Last data filed at 05/10/2024 0800 Gross per 24 hour Intake 2023.86 ml Output 835 ml Net 1188.86 ml BP 136/84 Pulse 85 Temp 36.7 C (98.1 F) (Oral) Resp 18 Ht 152.4 cm (5') Wt 47.8 kg (105 lb 6.1 oz) SpO2 91% BMI 20.58 kg/m Physical Exam Constitutional: General: She is sleeping. HENT: Head: Normocephalic and atraumatic. Cardiovascular: Rate and Rhythm: Normal rate and regular rhythm. Pulmonary: Effort: Pulmonary effort is normal. Breath sounds: Normal breath sounds. Abdominal: General: Abdomen is flat. Bowel sounds are normal. Palpations: Abdomen is soft. Musculoskeletal: Right lower leg: No edema. Left lower leg: No edema. Neurological: Mental Status: She is lethargic and disoriented. Psychiatric: Attention and Perception: She perceives visual hallucinations. Behavior: Behavior is uncooperative. ASSESSMENT Anterior STEMI Cath on 05/07, GARETT to LAD PCI of OM, successful stent placement in the 2nd obtuse marginal Peak trop was 51,668 A1c elevated at 5.8, TSH and T4 normal 1.49 and 1.07 respectively, lipid panel normal, ethanol level normal Complete heart block Syncope with a fall Concern for alcohol use disorder Concern for opiate use disorder UDS positive for benzos and opiates Patient takes Kratom at home every hour per daughter HTN HLD Hyponatremia PLAN Echo this morning showed EF <35% Continue aspirin 81 mg q.d. and Effient 10 mg q.d. Start Valsartan 40 mg b.i.d., and Farxiga 10 mg q.d.,and continue metoprolol succinate XL 12.5 mg qd and atorvastatin 80 mg q.d. for GDMT Start Spironolactone 25 mg q.d. tomorrow Trend creatine and strict I/Os Continue CIWA protocol for concern of alcohol withdrawal Neurology consulted for AMS Patient will need a life vest on discharge Academic Cardiology will continue to follow Berta Kang MD Internal Medicine, PGY-1 05/10/2024 11:27 AM [facility] TEACHING SERVICE This note was completed using a voice fellmongery worker system. Every effort was made to ensure accuracy. However, inadvertent computerized fellmongery worker errors may be present. Cosigned by Lizy Infante MD at 05/10/2024 11:55 AM EDT Associated attestation - Lizy Infante MD - 05/10/2024 11:55 AM EDT Images from the original note were not included. [facility] I have personally performed a face to face diagnostic evaluation on this patient. I have reviewed the note authored by the advance practice provider/resident/fellow and agree with the assessment and plan. My findings are as follows. Subjective: Patient denies chest pain, shortness of breath, lower limb edema and palpitations. Objective: BP 136/84 Pulse 85 Temp 36.7 C (98.1 F) (Oral) Resp 18 Ht 152.4 cm (5') Wt 47.8 kg (105 lb 6.1 oz) SpO2 91% BMI 20.58 kg/m General: no acute distress Cardiac: Regular rate and rhythm, normal S1/S2 Lungs: Clear to ausculation Abdomen: No tenderness or swelling Ext: no edema Labs: BMP: Results from last 7 days Lab Units 05/10/24 0829 05/10/24 0303 05/10/24 0007 05/09/24 0601 05/09/24 0300 05/08/24 1158 05/08/24 0520 SODIUM mmol/L 130* 130* 131* < > 129* < > 128* POTASSIUM mmol/L 3.8 4.0 4.0 < > 3.9 < > 3.3* CHLORIDE mmol/L 97* 96* 96* < > 96* < > 93* CO2 mmol/L < > 28 < > 28 BUN mg/dL -- 8 -- -- 8 -- 10 CREATININE mg/dL -- 0.42 -- -- 0.37* -- 0.48 CALCIUM mg/dL -- 8.0* -- -- 7.8* -- 8.2* PHOSPHORUS mg/dL -- 3.1 -- -- 2.5 -- -- MAGNESIUM mg/dL -- 1.8 -- -- 1.9 -- 1.8 < > = values in this interval not displayed. Troponin I: BNP: Assessment: Anterior STEMI Coronary artery disease s/p PCI/GARETT prox LAD 05/07/24 in the setting of anterior STEMI, s/p stage PCI/GARETT OM2 05/09/24 Complete heart block in the setting of anterior STEMI, resolved Heart failure with reduced ejection fraction Ischemic cardiomyopathy Hypertension Hyperlipidemia Right bundle-branch block Hyponatremia Alcohol abuse Substance use including Kratom Plan: Doing well. Continue aspirin, Effient, atorvastatin GDM T: Toprol, valsartan, Farxiga Eventual spironolactone LifeVest on discharge Okay to transfer out of CCU. I agree with assessment and plan as detailed above. LIZY INFANTE MD This note was completed using a voice fellmongery worker system. Every effort was made to ensure accuracy. However, inadvertent computerized fellmongery worker errors may be present. Images from the original note were not included. Nephrology Daily Progress Note INTERVAL HISTORY: On room air. Blood pressure on the low side. On IV fluids. Currently NPO for cardiac catheterization. VITAL SIGNS TREND: Vitals: 05/09/24 1110 05/09/24 1130 05/09/24 1200 05/09/24 1300 BP: (!) 85/54 (!) 86/50 91/54 Pulse: 73 71 72 74 Resp: 13 13 16 13 Temp: 36.8 C (98.2 F) TempSrc: Oral SpO2: 99% 97% 97% 98% Weight: Height: INTAKE/OUTPUT: Intake/Output Summary (Last 24 hours) at 05/09/2024 1315 Last data filed at 05/09/2024 1300 Gross per 24 hour Intake 1282.48 ml Output 1277 ml Net 5.48 ml I/O this shift: In: - Out: 445 [Urine:445] WEIGHT: Last 3 Weight Readings 05/07/24 1600 05/08/24 0500 05/09/24 0500 Weight: 47.1 kg (103 lb 13.4 oz) 45.6 kg (100 lb 8.5 oz) 45.1 kg (99 lb 6.8 oz) PHYSICAL EXAM: Blood pressure 91/54, pulse 74, temperature 36.8 C (98.2 F), temperature source Oral, resp. rate 13, height 152.4 cm (5'), weight 45.1 kg (99 lb 6.8 oz), SpO2 98%. Temp: [36.3 C (97.3 F)-36.8 C (98.2 F)] 36.8 C (98.2 F) Pulse: [71-97] 74 Resp: [12-21] 13 BP: (71-124)/(39-72) 91/54 SpO2: [92 %-100 %] 98 % O2 Device: None (Room air) General appearance: alert in no apparent distress. HEENT: no JVD, no lymphadenopathy. Heart exam: normal S1-S2 Lungs: clear to auscultation bilaterally Abdomen: soft, no tenderness, no guarding, positive bowel sounds Extremities: no edema Vascular: adequate pulses and no carotid bruits. Musculoskeletal: no joint tenderness or swelling. LABORATORY EVALUATION: Results from last 7 days Lab Units 05/09/24 0601 05/09/24 0300 05/09/24 0001 05/08/24 1813 05/08/24 1158 05/08/24 0520 05/07/242049 SODIUM mmol/L 131* 129* 130* 129* 127* 128* 123* POTASSIUM mmol/L 4.1 3.9 4.1 4.3 4.0 3.3* 3.9 CHLORIDE mmol/L 99 96* 96* 97* 95* 93* 88* CO2 mmol/L ANION GAP mmol/L 10 5 6 6 8 7 7 BUN mg/dL -- 8 -- -- -- 10 12 CREATININE mg/dL -- 0.37* -- -- -- 0.48 0.64 CALCIUM mg/dL -- 7.8* -- -- -- 8.2* 8.5 MAGNESIUM mg/dL -- 1.9 -- -- -- 1.8 1.8 PHOSPHORUS mg/dL -- 2.5 -- -- -- -- -- CALCIUM, IONIZED mg/dL -- 4.3* -- -- -- -- -- Results from last 7 days Lab Units 05/09/2429905/08/2451905/07/242049 TOTAL PROTEIN g/dL 5.2* 5.8* 6.3 ALBUMIN g/dL 3.0* 3.3 3.6 AST U/L 44* 110* 124* ALT U/L 15 25 31 TOTAL BILIRUBIN mg/dL 0.8 1.0 0.8 ALK PHOS U/L 52 59 63 Results from last 7 days Lab Units 05/09/24 03005/08/24 0330 05/07/24 1608 WBC X10E9/L 7.1 10.0 17.7* HEMOGLOBIN g/dL 10.1* 12.0 13.3 HEMATOCRIT % 28.6* 34.0* 37.8 PLATELETS X10E9/L 138* ESTIMATE OF PLATELETS, NORMAL 270 Lab Results Component Value Date IRON 30 (L) 04/06/2024 TIBC 358 04/06/2024 FERRITIN 17 04/06/2024 IRONSAT 8 (L) 04/06/2024 Results from last 7 days Lab Units 05/09/24 03005/08/24 0520 05/07/24204905/07/24 1609 BEDSIDE GLUCOSE mg/dL -- -- -- 159* GLUCOSE mg/dL 86 94 124* -- CURRENT MEDICATIONS: aspirin, 81 mg, oral, Daily atorvastatin, 80 mg, oral, Nightly busPIRone, 10 mg, oral, BID DULoxetine, 60 mg, oral, Daily gabapentin, 300 mg, oral, 4x Daily heparin (porcine), 5,000 Units, subcutaneous, Q12H KAMILAH metoprolol succinate XL, 12.5 mg, oral, Daily prasugreL HCl, 10 mg, oral, Daily sodium chloride, 3 mL, intravenous, Q12H PROBLEM LIST: Hypovolemic hyponatremia in the setting of complete heart block and hypotension. Uric acid was 3.7, TSH 1.49 and free T4 was 1.07, cortisol was 15.2, serum osmolality was 256, random urine sodium was less than 10 and random urine osmolality was 353 Complete heart block status post temporary pacing wire placement on May 07, 2024 ST-elevation VA from April of 2024 status post cardiac catheterization with stenting to the LAD on May 07, 2024 Cardiac catheterization on May 07, 2024 revealed severe diffuse disease of the LAD with moderate calcification and 100% stenosis of the proximal LAD to mid LAD which was successfully stented, 40% mid to distal left circumflex, 85% 2nd obtuse marginal and 20% proximal to mid RCA stenosis. Hypertension Asthma Degenerative joint disease Chronic back pain TMJ dysfunction Multiple cervical spine steroid injections and radiofrequency ablation for chronic neck pain. Tonsillectomy Left-sided rotator cuff repair Echocardiogram from April of 2024 revealed ejection fraction of 30-35% with trace to mild mitral regurgitation and trace tricuspid regurgitation. IMPRESSION: 1. Hypovolemic hyponatremia: Correcting with the lactated Ringer's. 2. Hypotension: Currently on IV fluids. 3. Complete heart block status post temporary pacing wire placement 4. ST-elevation VA status post stenting to the LAD. Noted plans for repeat stenting tomorrow. PLAN: 1. Discontinue Aldactone given hypotension 2. Continue IV fluids 3. Continue to follow electrolytes and replace per sliding scale as needed No objection to proceed with cardiac catheterization from renal perspective. Discussed with her nurse at the bedside Alfa Gregory M.D. For questions please call: Answering Service at [phone] Or Office at [phone] This note was created with the assistance of a speech-recognition program. Although the intention is to generate a document that actually reflects the content of the visit, no guarantees can be provided that every mistake has been identified and corrected by editing. Cardiac Rehab Type of Visit: Deferred (see comments) (Plans for cardiac cath procedure today. I will follow up with pt.) Assessment Vitals: 05/09/24 0900 05/09/24 1000 05/09/24 1100 Pulse: 75 76 71 Heart Rate Source: Resp: 15 13 BP: 102/66 (!) 80/46 BP Location: BP Method: SpO2: 98% 96% 97% O2 Device: Images from the original note were not included. [facility] ACADEMIC SERVICE PROGRESS NOTE Alie Briones SUBJECTIVE Subjective History of Present Illness: Alie Briones is a 63 y.o. female with a past medical history of hypertension, HLD, osteoarthritis of cervical spine, and cervical spondylosis without myelopathy, who presented to [place] ED for a fall. Per the patient she had crushing chest pain this morning which she rates an 8/10. She said after the pressure she started getting light headed, dizzy, and fell but never lost consciousness. The patient reports having the chest pain for several days. In the [place] ED the patient was afebrile, HR 80, RR 18, and BP 103/55. No labs were drawn. EKG showed concerns for heart block and left and right bundle branch blocks. CT brain and CT cervical spine showed no acute intracranial findings. CXR and hip xray showed no acute findings. Cardiology was consulted and patient was transferred to [facility]. Once the patient arrived at [facility] repeat EKG showed anterior lead ST segment elevations. Patient kept cycling back and forth between heart block and sinus tachycardia. On echo, patient was having apical wall motion abnormalities. Patient was urgently taken to film laboratory technician. Interval Hx: 05/09/24: No acute overnight events. This morning the patient was out if it again. She did not want to wake to answer questions. During rounds she denies chest pain or SOB. Allergies: Allergies Allergen Reactions Sulfa (Sulfonamide Antibiotics) Itching and Rash CURRENT MEDICATIONS aspirin, 81 mg, oral, Daily atorvastatin, 80 mg, oral, Nightly busPIRone, 10 mg, oral, BID DULoxetine, 60 mg, oral, Daily gabapentin, 300 mg, oral, 4x Daily heparin (porcine), 5,000 Units, subcutaneous, Q12H KAMILAH metoprolol succinate XL, 12.5 mg, oral, Daily prasugreL HCl, 10 mg, oral, Daily QUEtiapine, 200 mg, oral, Nightly sodium chloride, 3 mL, intravenous, Q12H CONTINUOUS INFUSIONS lactated ringer's, 75 mL/hr, Last Rate: 75 mL/hr (05/08/24 1506) OBJECTIVE Objective CBC: Results from last 7 days Lab Units 05/09/24 0300 05/08/24 0330 05/07/24 1608 WBC X10E9/L 7.1 10.0 17.7* HEMOGLOBIN g/dL 10.1* 12.0 13.3 HEMATOCRIT % 28.6* 34.0* 37.8 MCV fL 96 94 95 PLATELETS X10E9/L 138* ESTIMATE OF PLATELETS, NORMAL 270 BMP: Results from last 7 days Lab Units 05/09/24 0300 05/09/24 0001 05/08/24 1813 05/08/24 1158 05/08/24 0520 05/07/24 2050 SODIUM mmol/L 129* 130* 129* < > 128* 123* POTASSIUM mmol/L 3.9 4.1 4.3 < > 3.3* 3.9 CHLORIDE mmol/L 96* 96* 97* < > 93* 88* CO2 mmol/L 28 28 26 < > 28 28 BUN mg/dL 8 -- -- -- 10 12 CREATININE mg/dL 0.37* -- -- -- 0.48 0.64 CALCIUM mg/dL 7.8* -- -- -- 8.2* 8.5 PHOSPHORUS mg/dL 2.5 -- -- -- -- -- MAGNESIUM mg/dL 1.9 -- -- -- 1.8 1.8 < > = values in this interval not displayed. PT/INR: Results from last 7 days Lab Units 05/07/24 1608 PROTIME sec 13.4* INR 1.2 APTT: MAG: Results from last 7 days Lab Units 05/09/24 0300 05/08/24 0520 05/07/24 2050 MAGNESIUM mg/dL 1.9 1.8 1.8 D Dimer: Troponin I ProBNP Lipid Panel: Lab Results Component Value Date CHOL 197 05/08/2024 TRIG 145 05/08/2024 HDL 45 05/08/2024 HDL 55 09/12/2014 CHOLHDLR 09/12/2014 RISK FEMALE RATIO MALE RATIO 1/2 AVERAGE 3.27 3.43 AVERAGE 4.44 4.97 2X 7.05 9.55 3X 11.04 23.39 Liver Panel: No results found for: ALB HgA1C: Lab Results Component Value Date HGBA1C 5.8 (H) 05/08/2024 ABG: EKG: No results found. LAST ECHO (Within 2 Years) No results found. LAST STRESS (Within 2 Years) No results found. CATH: (Within 2 Years) No results found. RADIOLOGY: No results found. PHYSICAL EXAM Admission Weight: Weight: 47.1 kg (103 lb 13.4 oz) I/O last 3 completed shifts: In: 1524.7 [P.O.:400; I.V.:697.9; IV Piggyback:426.8] Out: 3112 [Urine:3112] Weight change: -2 kg (-4 lb 6.6 oz) Wt Readings from Last 3 Encounters: 05/09/24 45.1 kg (99 lb 6.8 oz) 06/30/22 55.7 kg (122 lb 14.4 oz) 06/09/22 54.4 kg (120 lb) Vitals: Vitals: 05/09/24 0400 05/09/24 0500 05/09/24 0610 05/09/24 0700 BP: 90/64 100/68 105/65 99/63 Pulse: 73 85 77 81 Resp: 14 14 15 15 Temp: 36.4 C (97.5 F) TempSrc: Axillary SpO2: 95% 100% 99% 92% Weight: 45.1 kg (99 lb 6.8 oz) Height: Admit Weight Weight: 47.1 kg (103 lb 13.4 oz) Last 3 Weights Last 3 Weight Readings 05/07/24 1600 05/08/24 0500 05/09/24 0500 Weight: 47.1 kg (103 lb 13.4 oz) 45.6 kg (100 lb 8.5 oz) 45.1 kg (99 lb 6.8 oz) Body mass index is 19.42 kg/m . INTAKE/OUTPUT I/O last 3 completed shifts: In: 1524.7 [P.O.:400; I.V.:697.9; IV Piggyback:426.8] Out: 3112 [Urine:3112] Intake/Output Summary (Last 24 hours) at 05/09/2024 0720 Last data filed at 05/09/2024 0600 Gross per 24 hour Intake 1379.43 ml Output 1117 ml Net 262.43 ml BP 99/63 Pulse 81 Temp 36.4 C (97.5 F) (Axillary) Resp 15 Ht 152.4 cm (5') Wt 45.1 kg (99 lb 6.8 oz) SpO2 92% BMI 19.42 kg/m Physical Exam Constitutional: General: She is sleeping. HENT: Head: Normocephalic and atraumatic. Cardiovascular: Rate and Rhythm: Normal rate and regular rhythm. Pulmonary: Effort: Pulmonary effort is normal. Breath sounds: Normal breath sounds. Abdominal: General: Abdomen is flat. Bowel sounds are normal. Palpations: Abdomen is soft. Musculoskeletal: Right lower leg: No edema. Left lower leg: No edema. Neurological: Mental Status: She is lethargic. ASSESSMENT Anterior STEMI Cath on 05/07, G[facility]ETT to [facility] trop was 51,668 A1c elevated at 5.8, TSH and T4 normal 1.49 and 1.07 respectively, lipid panel normal, ethanol level normal Complete heart block Syncope with a fall Concern for alcohol use disorder Concern for opiate use disorder UDS positive for benzos and opiates Concern for scabies HTN HLD Hyponatremia PLAN Heart cath intervention of obtuse marginal today Continue metoprolol succinate XL 12.5 mg qd, will need GDMT Nephology consulted for concern of EMILY Trend creatine and strict I/Os Continue CIWA protocol for concern of alcohol withdrawal EP does not recommend a pacemaker at this time Will need a TTE after PCI [facility] will continue to follow Berta Kang MD Internal Medicine, PGY-1 05/09/2024 7:20 AM [facility] This note was completed using a voice fellmongery worker system. Every effort was made to ensure accuracy. However, inadvertent computerized fellmongery worker errors may be present. Cosigned by Lizy Infante MD at 05/09/2024 1:02 PM EDT Associated attestation - Lizy Infante MD - 05/09/2024 1:02 PM EDT Images from the original note were not included. [facility] I have personally performed a face to face diagnostic evaluation on this patient. I have reviewed the note authored by the advance practice provider/resident/fellow and agree with the assessment and plan. My findings are as follows. Subjective: No acute events overnight. Denies chest pain. Family at bedside. Objective: BP (!) 86/50 Pulse 72 Temp 36.8 C (98.2 F) (Oral) Resp 16 Ht 152.4 cm (5') Wt 45.1 kg (99 lb 6.8 oz) SpO2 97% BMI 19.42 kg/m General: no acute distress Cardiac: Regular rate and rhythm, normal S1/S2 Lungs: Clear to ausculation Abdomen: No tenderness or swelling Ext: no edema Labs: BMP: Results from last 7 days Lab Units 05/09/24 0601 05/09/24 0300 05/09/24 0001 05/08/24 1158 05/08/24 0520 05/07/24 2050 SODIUM mmol/L 131* 129* 130* < > 128* 123* POTASSIUM mmol/L 4.1 3.9 4.1 < > 3.3* 3.9 CHLORIDE mmol/L 99 96* 96* < > 93* 88* CO2 mmol/L 22 28 28 < > 28 28 BUN mg/dL -- 8 -- -- 10 12 CREATININE mg/dL -- 0.37* -- -- 0.48 0.64 CALCIUM mg/dL -- 7.8* -- -- 8.2* 8.5 PHOSPHORUS mg/dL -- 2.5 -- -- -- -- MAGNESIUM mg/dL -- 1.9 -- -- 1.8 1.8 < > = values in this interval not displayed. Troponin I: BNP: Assessment: Anterior STEMI Coronary artery disease s/p PCI/GARETT prox LAD 05/07/24 in the setting of anterior STEMI, residual OM2 disease Complete heart block in the setting of anterior STEMI, resolved Heart failure with reduced ejection fraction Ischemic cardiomyopathy Hypertension Hyperlipidemia Right bundle-branch block Hyponatremia Alcohol abuse Substance use including Kratom Plan: Current plan in place is for staged PCI of OM2 later today. Slowly optimizing GDM T as tolerated. Currently only on Toprol EP recommending discharge with LifeVest. Also recommending 30 day MCOT. Okay to transfer out of CCU. I agree with assessment and plan as detailed above. LIZY INFANTE MD This note was completed using a voice fellmongery worker system. Every effort was made to ensure accuracy. However, inadvertent computerized fellmongery worker errors may be present. Images from the original note were not included. [facility] [address], [place] [id number] PROGRESS NOTE H&P 63F w/ PMH HTN who presented w/ complete heart block and anterior STEMI, s/p PCI pLAD 05/07/24. ICM EF 30-35% (TTE 04/2024, during acute STEMI), now w/ RBBB/LAFB QRS 169 ms. SUBJECTIVE No significant overnight events, telemetry w/ sinus/sinus tach and 1:1 AV conduction, pt/family sleeping. REVIEW OF SYSTEMS ROS no change from admission H&P. OBJECTIVE VITAL SIGNS BP 99/63 Pulse 81 Temp 36.4 C (97.5 F) (Axillary) Resp 15 Ht 152.4 cm (5') Wt 45.1 kg (99 lb 6.8 oz) SpO2 92% BMI 19.42 kg/m INTAKE/OUTPUT Intake/Output Summary (Last 24 hours) at 05/09/2024 0706 Last data filed at 05/09/2024 0600 Gross per 24 hour Intake 1379.43 ml Output 1117 ml Net 262.43 ml PHYSICAL EXAM General appearance: asleep Lungs: no rhonchi, no wheezes, no rales Heart: RRR, nl s1 and s2 Abdomen: positive bowel sounds, no bruits, no masses Extremities: warm and dry, no cyanosis, no clubbing LABS Results from last 7 days Lab Units 05/09/24 0300 05/08/24 0330 05/07/24 1608 WBC X10E9/L 7.1 10.0 17.7* HEMOGLOBIN g/dL 10.1* 12.0 13.3 HEMATOCRIT % 28.6* 34.0* 37.8 MCV fL 96 94 95 PLATELETS X10E9/L 138* ESTIMATE OF PLATELETS, NORMAL 270 Results from last 7 days Lab Units 05/09/24 0300 05/09/24 0001 05/08/24 1813 05/08/24 1158 05/08/24 0520 05/07/242049 SODIUM mmol/L 129* 130* 129* < > 128* 123* POTASSIUM mmol/L 3.9 4.1 4.3 < > 3.3* 3.9 CHLORIDE mmol/L 96* 96* 97* < > 93* 88* CO2 mmol/L 28 28 26 < > 28 28 BUN mg/dL 8 -- -- -- 10 12 CREATININE mg/dL 0.37* -- -- -- 0.48 0.64 CALCIUM mg/dL 7.8* -- -- -- 8.2* 8.5 PHOSPHORUS mg/dL 2.5 -- -- -- -- -- MAGNESIUM mg/dL 1.9 -- -- -- 1.8 1.8 < > = values in this interval not displayed. Results from last 7 days Lab Units 05/07/24 1608 PROTIME sec 13.4* INR 1.2 Results from last 7 days Lab Units 05/09/24 03005/08/24 0505/07/242049 MAGNESIUM mg/dL 1.9 1.8 1.8 CURRENT MEDICATIONS aspirin, 81 mg, oral, Daily atorvastatin, 80 mg, oral, Nightly busPIRone, 10 mg, oral, BID DULoxetine, 60 mg, oral, Daily gabapentin, 300 mg, oral, 4x Daily heparin (porcine), 5,000 Units, subcutaneous, Q12H KAMILAH metoprolol succinate XL, 12.5 mg, oral, Daily prasugreL HCl, 10 mg, oral, Daily QUEtiapine, 200 mg, oral, Nightly sodium chloride, 3 mL, intravenous, Q12H CONTINUOUS INFUSIONS lactated ringer's, 75 mL/hr, Last Rate: 75 mL/hr (05/08/24 6366) ASSESSMENT AND PLAN Anterior STEMI s/p PCI mLAD S/p TVP via LFV 05/07/24, removed 05/08/24 Plans for staged PCI to OM prior to discharge ICM EF 30-35% (TTE 05/07/24, at time of STEMI) Complete heart block c/b recurrent syncope, resolved HTN LAFB/RBBB QRS 172 ms Patient w/ stable rhythm w/o evidence of block over past 1-2 days, do not anticipate need for pacemaker. BB held overnight due to relative hypotension. Can restart if warranted, deferring to CCU team for GDMT. Plans for staged PCI prior to discharge, would advocate for repeat TTE after staged PCI to determine EF; if 35% or less, would discharge w/ LifeVest. Can be seen w/ EP for primary prevention ICD/OUTBOUND SUPERVISOR if EF remains <35% after 3 months of GDMT. Would also discharge w/ outpatient 30d MCOT to evaluate for any further episodes of high-degree heart block. EP will sign off, please call back w/ any additional questions. Harrison Espinal MD/PO, FACC, FHRS [facility] Elect[facility]iology Cardiac Rehab Type of Visit: Deferred (see comments) (Pt has been slightly confused today. Pt will also have a cath procedure done tomorrow. I will follow up with pt.) Assessment Vitals: 05/08/24 1130 05/08/24 1200 05/08/24 1300 Pulse: 98 86 86 Heart Rate Source: Resp: 16 17 15 BP: BP Location: BP Method: SpO2: 98% 95% 93% O2 Device: None (Room air) Images from the original note were not included. [facility] [address], [place] [address] PROGRESS NOTE H&P 63F w/ PMH HTN who presented w/ complete heart block and anterior STEMI, s/p PCI pLAD 05/07/24. ICM EF 30-35% (TTE 04/2024, during acute STEMI), now w/ RBBB/LAFB QRS 169 ms. SUBJECTIVE No significant overnight events, patient received Ativan overnight and was quite sleepy this morning. Telemetry reviewed, no evidence of high-degree heart block. Pacing spikes seen though not capturing. No true pacing overnight. REVIEW OF SYSTEMS ROS no change from admission H&P. OBJECTIVE VITAL SIGNS BP 95/63 Pulse 87 Temp 36.7 C (98.1 F) (Oral) Resp 15 Wt 45.6 kg (100 lb 8.5 oz) SpO2 96% BMI 19.63 kg/m INTAKE/OUTPUT Intake/Output Summary (Last 24 hours) at 05/08/2024 0846 Last data filed at 05/08/2024 0814 Gross per 24 hour Intake 340.17 ml Output 3355 ml Net -3014.83 ml PHYSICAL EXAM General appearance: awake, alert, oriented, moves all extremities Lungs: no rhonchi, no wheezes, no rales Heart: Regular rate and rhythm, normal S1-S2 Abdomen: positive bowel sounds, no bruits, no masses Extremities: warm and dry, no cyanosis, no clubbing LABS Results from last 7 days Lab Units 05/08/24 0330 05/07/24 1608 WBC X10E9/L 10.0 17.7* HEMOGLOBIN g/dL 12.0 13.3 HEMATOCRIT % 34.0* 37.8 MCV fL 94 95 PLATELETS X10E9/L ESTIMATE OF PLATELETS, NORMAL 270 Results from last 7 days Lab Units 05/08/24 0520 05/07/240 05/07/24 0003 SODIUM mmol/L 128* 123* 126* POTASSIUM mmol/L 3.3* 3.9 -- CHLORIDE mmol/L 93* 88* -- CO2 mmol/L 28 28 -- BUN mg/dL 10 12 -- CREATININE mg/dL 0.48 0.64 -- CALCIUM mg/dL 8.2* 8.5 -- MAGNESIUM mg/dL 1.8 1.8 -- Results from last 7 days Lab Units 05/07/24 1608 PROTIME sec 13.4* INR 1.2 Results from last 7 days Lab Units 05/08/24 0520 05/07/242049 MAGNESIUM mg/dL 1.8 1.8 CURRENT MEDICATIONS aspirin, 81 mg, oral, Daily atorvastatin, 80 mg, oral, Nightly busPIRone, 10 mg, oral, BID DULoxetine, 60 mg, oral, Daily gabapentin, 300 mg, oral, 4x Daily prasugreL HCl, 10 mg, oral, Daily QUEtiapine, 200 mg, oral, Nightly sodium chloride, 3 mL, intravenous, Q12H CONTINUOUS INFUSIONS dextrose 5 % in water, 100 mL/hr DOPamine, 2-10 mcg/kg/min, Last Rate: Stopped (05/07/24 1621) ASSESSMENT AND PLAN Anterior STEMI s/p PCI mLAD S/p TVP via LFV 05/07/24, removed 05/08/24 Plans for staged PCI to OM prior to discharge ICM EF 30-35% (TTE 05/07/24) Complete heart block c/b recurrent syncope, resolved HTN LAFB/RBBB QRS 172 ms Telemetry shows one-to-one AV conduction throughout the evening without any pacing need. Transvenous pacemaker interrogated today, found to have non capture and no sensing. Removed at bedside, sheath left in place. Patient has no acute need for pacemaker at this juncture, rhythm has been restored after revascularization. Currently planning for staged PCI to OM. Defer GDMT to primary service but ok to introduce low dose BB such as Toprol 12.5 mg qday, borderline hypotensive. EP will follow for another day. Recommend outpatient 30d MCOT monitor after discharge to eval for any recurrent heart block. Harrison Espinal MD/PO, FACC, RS [facility] - [facility] Images from the original note were not included. [facility] PROGRESS NOTE Alie Briones SUBJECTIVE Subjective History of Present Illness: Alie Briones is a 63 y.o. female with a past medical history of hypertension, HLD, osteoarthritis of cervical spine, and cervical spondylosis without myelopathy, who presented to [facility] for a fall. Per the patient she had crushing chest pain this morning which she rates an 8/10. She said after the pressure she started getting light headed, dizzy, and fell but never lost consciousness. The patient reports having the chest pain for several days. In the [facility] ED the patient was afebrile, HR 80, RR 18, and BP 103/55. No labs were drawn. EKG showed concerns for heart block and left and right bundle branch blocks. CT brain and CT cervical spine showed no acute intracranial findings. CXR and hip xray showed no acute findings. Cardiology was consulted and patient was transferred to [facility]. Once the patient arrived at [facility] repeat EKG showed anterior lead ST segment elevations. Patient kept cycling back and forth between heart block and sinus tachycardia. On echo, patient was having apical wall motion abnormalities. Patient was urgently taken to film laboratory technician. Interval Hx: 05/08/24: No acute overnight events. This morning the patient was out of it, her daughter reports that she got ativan and that's how she gets. She was unable to answer questions or fully wake up. Allergies: Allergies Allergen Reactions Sulfa (Sulfonamide Antibiotics) Itching and Rash CURRENT MEDICATIONS aspirin, 81 mg, oral, Daily atorvastatin, 80 mg, oral, Nightly busPIRone, 10 mg, oral, BID DULoxetine, 60 mg, oral, Daily gabapentin, 300 mg, oral, 4x Daily heparin (porcine), 5,000 Units, subcutaneous, Q12H KAMILAH metoprolol succinate XL, 12.5 mg, oral, Daily prasugreL HCl, 10 mg, oral, Daily QUEtiapine, 200 mg, oral, Nightly sodium chloride, 3 mL, intravenous, Q12H CONTINUOUS INFUSIONS dextrose 5 % in water, 100 mL/hr lactated ringer's, 75 mL/hr, Last Rate: 75 mL/hr (05/08/24 1117) OBJECTIVE Objective CBC: Results from last 7 days Lab Units 05/08/24 0330 05/07/24 1608 WBC X10E9/L 10.0 17.7* HEMOGLOBIN g/dL 12.0 13.3 HEMATOCRIT % 34.0* 37.8 MCV fL 94 95 PLATELETS X10E9/L ESTIMATE OF PLATELETS, NORMAL 270 BMP: Results from last 7 days Lab Units 05/08/24 1158 05/08/24 0520 05/07/24 2050 SODIUM mmol/L 127* 128* 123* POTASSIUM mmol/L 4.0 3.3* 3.9 CHLORIDE mmol/L 95* 93* 88* CO2 mmol/L 24 28 28 BUN mg/dL -- 10 12 CREATININE mg/dL -- 0.48 0.64 CALCIUM mg/dL -- 8.2* 8.5 MAGNESIUM mg/dL -- 1.8 1.8 PT/INR: Results from last 7 days Lab Units 05/07/24 1608 PROTIME sec 13.4* INR 1.2 APTT: MAG: Results from last 7 days Lab Units 05/08/24 0520 05/07/24 2050 MAGNESIUM mg/dL 1.8 1.8 D Dimer: Troponin I ProBNP Lipid Panel: Lab Results Component Value Date CHOL 197 05/08/2024 TRIG 145 05/08/2024 HDL 45 05/08/2024 HDL 55 09/12/2014 CHOLHDLR 09/12/2014 RISK FEMALE RATIO MALE RATIO 1/2 AVERAGE 3.27 3.43 AVERAGE 4.44 4.97 2X 7.05 9.55 3X 11.04 23.39 Liver Panel: No results found for: ALB HgA1C: Lab Results Component Value Date HGBA1C 5.8 (H) 05/08/2024 ABG: EKG: No results found. LAST ECHO (Within 2 Years) No results found. LAST STRESS (Within 2 Years) No results found. CATH: (Within 2 Years) No results found. RADIOLOGY: Echo limited W/O contrast Result Date: 05/08/2024 Left Ventricle: Left ventricle appears normal in size. Systolic function is moderately to severely decreased with an ejection fraction of 30-35%. Aortic Valve: There is no regurgitation or stenosis. Mitral Valve: There is [id number] regurgitation. There is no evidence of mitral valve stenosis. Tricuspid Valve: There is trace regurgitation. There is no evidence of tricuspid valve stenosis. Cardiac Invasive Result Date: 05/08/2024 Successful placement of temporary pacing wire for [...] temporary pacemaker if rhythm stabilizes Electrophysiology consultation X-ray chest 1 view Result Date: 05/07/2024 Single view chest XR CHEST 1 VW History: dizziness Comparison: June 30, 2022 Impression: * No consolidation or pleural fluid. No acute findings. Finalized by Nnamdi Amaro MD on 05/07/2024 2:[address] cervical spine without contrast Result Date: 05/07/2024 CT CERVICAL SPINE WO CONT INDICATION: [...] Maximilian Link MD on 05/07/2024 2:45 PM X-ray pelvis 1 or 2 views Result Date: 05/07/2024 XR PELVIS 1 OR 2 VWS fall Pelvic trauma Findings: There is grossly no fracture or destructive lesion. Impression: * No acute findings. * Consider MRI if you suspect occult process. Finalized by Nnamdi Amaro MD on 05/07/2024 2:[address] brain without contrast Result Date: 05/07/2024 STUDY: CT HEAD WITHOUT CONTRAST CLINICAL [...] Nnamdi Amaro MD on 05/07/2024 2:42 PM PHYSICAL EXAM Admission Weight: Weight: 47.1 kg (103 lb 13.4 oz) I/O last 3 completed shifts: In: 243.2 [I.V.:144.1; IV Piggyback:99.1] Out: 3325 [Urine:3295; Blood:30] Weight change: Wt Readings from Last 3 Encounters: 05/08/24 45.6 kg (100 lb 8.5 oz) 06/30/22 55.7 kg (122 lb 14.4 oz) 06/09/22 54.4 kg (120 lb) Vitals: Vitals: 05/08/24 1100 05/08/24 1130 05/08/24 1200 05/08/24 1300 BP: (!) 89/58 91/51 Pulse: 95 98 86 86 Resp: 15 16 17 15 Temp: (!) 35.6 C (96.1 F) TempSrc: Axillary SpO2: 96% 98% 95% 93% Weight: Height: Admit Weight Weight: 47.1 kg (103 lb 13.4 oz) Last 3 Weights Last 3 Weight Readings 05/07/24 1600 05/08/24 0500 Weight: 47.1 kg (103 lb 13.4 oz) 45.6 kg (100 lb 8.5 oz) Body mass index is 19.63 kg/m . INTAKE/OUTPUT I/O last 3 completed shifts: In: 243.2 [I.V.:144.1; IV Piggyback:99.1] Out: 3325 [Urine:3295; Blood:30] Intake/Output Summary (Last 24 hours) at 05/08/2024 1358 Last data filed at 05/08/2024 1200 Gross per 24 hour Intake 340.17 ml Output 3610 ml Net -3269.83 ml BP 91/51 Pulse 86 Temp (!) 35.6 C (96.1 F) (Axillary) Resp 15 Ht 152.4 cm (5') Wt 45.6 kg (100 lb 8.5 oz) SpO2 93% BMI 19.63 kg/m Physical Exam Constitutional: General: She is sleeping. HENT: Head: Normocephalic and atraumatic. Cardiovascular: Rate and Rhythm: Normal rate and regular rhythm. Pulmonary: Effort: Pulmonary effort is normal. Breath sounds: Normal breath sounds. Abdominal: General: Abdomen is flat. Bowel sounds are normal. Palpations: Abdomen is soft. Musculoskeletal: Right lower leg: No edema. Left lower leg: No edema. Neurological: Mental Status: She is lethargic. Psychiatric: Behavior: Behavior is uncooperative. ASSESSMENT Anterior STEMI Complete heart block Syncope with a fall Concern for alcohol use disorder Concern for opiate use disorder Concern for scabies HTN HLD Hyponatremia PLAN Patient will need to go back to film laboratory technician for intervention of obtuse marginal tomorrow NPO at midnight Started metoprolol succinate XL 12.5 mg qd Trend troponin Nephology consulted for concern of EMILY Trend creatine and strict I/Os Start CIWA protocol for concern of alcohol withdrawal UDS positive for benzos and opiates A1c elevated at 5.8, TSH and T4 normal 1.49 and 1.07 respectively, lipid panel normal, ethanol level normal [facility] Cardiology will continue to follow Berta Kang MD Internal Medicine, PGY-1 05/08/2024 1:58 PM [facility] This note was completed using a voice fellmongery worker system. Every effort was made to ensure accuracy. However, inadvertent computerized fellmongery worker errors may be present. Cosigned by Lizy Infante MD at 05/08/2024 2:07 PM EDT Associated attestation - Lizy Infante MD - 05/08/2024 2:07 PM EDT Images from the original note were not included. [facility] I have personally performed a face to face diagnostic evaluation on this patient. I have reviewed the note authored by the advance practice provider/resident/fellow and agree with the assessment and plan. My findings are as follows. Subjective: Patient was asleep this morning, difficult to arouse. Just received Ativan. Objective: BP 99/49 Pulse 86 Temp (!) 35.6 C (96.1 F) (Axillary) Resp 16 Ht 152.4 cm (5') Wt 45.6 kg (100 lb 8.5 oz) SpO2 92% BMI 19.63 kg/m General: no acute distress Cardiac: Regular rate and rhythm, normal S1/S2 Lungs: Clear to ausculation Abdomen: No tenderness or swelling Ext: no edema Labs: BMP: Results from last 7 days Lab Units 05/08/24 1158 05/08/24 0520 05/07/24 2050 SODIUM mmol/L 127* 128* 123* POTASSIUM mmol/L 4.0 3.3* 3.9 CHLORIDE mmol/L 95* 93* 88* CO2 mmol/L 24 28 28 BUN mg/dL -- 10 12 CREATININE mg/dL -- 0.48 0.64 CALCIUM mg/dL -- 8.2* 8.5 MAGNESIUM mg/dL -- 1.8 1.8 Troponin I: BNP: Assessment: Anterior STEMI Coronary artery disease s/p PCI/GARETT prox LAD 05/07/24 in the setting of anterior STEMI, residual OM2 disease Complete heart block in the setting of anterior STEMI, resolved Heart failure with reduced ejection fraction Ischemic cardiomyopathy Hypertension Hyperlipidemia Right bundle-branch block Hyponatremia Alcohol abuse Substance use including Kratom Plan: No acute events overnight. Eventual staged PCI OM2 later this admission. Start to optimize GDM T. Starting Toprol today. I agree with assessment and plan as detailed above. LIZY INFANTE MD This note was completed using a voice fellmongery worker system. Every effort was made to ensure accuracy. However, inadvertent computerized fellmongery worker errors may be present. documented in this encounter [facility] [employer] [facility] 05-11-2024 History and physical note Images from the original note were not included. [facility] [address] [facility] [id number] Hospital Medicine History & Physical Patient: Alie Briones Date of : 1960 Room: B678/01 PCP: ROSITA [facility] Admission date: 05/07/2024 3:54 PM Encounter date: 05/11/24 Hospital Day: 5 SUBJECTIVE Alie Briones is a 63 y.o. female with past medical history significant for hypertension and hyperlipidemia. Patient initially presented to [facility] on 05/07/2024 for evaluation after a fall with associated crushing chest pains. In the ER, EKG showed concerns for complete heart block for which Cardiology was consulted and patient was transferred to [facility] for further management under their service. On arrival to [facility] a repeat EKG revealed anterior lead ST segment elevations. Echocardiogram on 05/08 with moderate to severely decreased LV systolic function with EF 30-35% and anterior and anteroseptal akinesis for which the patient was urgently taken to film laboratory technician for anterior STEMI. Patient s/p GARETT to pLAD on 05/07/2024 and now also s/p staged PCI of OM. Repeat echocardiogram now revealing EF 20-25% on 05/11/2024. Nephrology has been following along for management of hypovolemic hyponatremia. Neurology was consulted due to acute metabolic encephalopathy likely multifactorial to alcohol use, age, and self-medication with herbal drugs. Neurology also recommended outpatient MRI of cervical and lumbar spines for further evaluation of ruling out possible myeloradiculopathy contributing to patient's fall. Cardiology deemed the patient stable for transfer out of ICU and requested Internal Medicine assuming primary. The patient was evaluated today while resting in her recliner having breakfast. Telesitter in place. She denies any need, concerns, questions. She reports she is feeling well. She is alert and oriented on exam. Allergies: Sulfa (sulfonamide antibiotics) Prior to Admission medications Medication Sig Start Date End Date Taking? Authorizing Provider cyclobenzaprine (FLEXERIL) 10 mg tablet Take 1 tablet (10 mg total) by mouth daily as needed for muscle spasms. Yes Not In System Ref Prov ibuprofen (MOTRIN) 600 mg tablet TAKE 1 TABLET BY MOUTH EVERY 6 HOURS NEEDED FOR PAIN 10/30/22 Yes Beatriz Ash APRN-SHADI amLODIPine (NORVASC) 2.5 mg tablet Take 1 tablet (2.5 mg total) by mouth in the morning. Patient not taking: Reported on 05/08/2024 09/25/18 Not In System Ref Prov atorvastatin (LIPITOR) 10 mg tablet Take 1 tablet (10 mg total) by mouth in the morning. Patient not taking: Reported on 05/08/2024 Not In System Ref Prov baclofen (LIORESAL) 10 mg tablet Take 1 tablet (10 mg total) by mouth 3 (three) times a day. Patient not taking: Reported on 05/08/2024 Not In System Ref Prov busPIRone (BUSPAR) 10 mg tablet Take 1 tablet (10 mg total) by mouth in the morning and 1 tablet (10 mg total) before bedtime. Patient not taking: Reported on 05/08/2024 04/29/20 Not In System Ref Prov DULoxetine (CYMBALTA) 60 mg capsule Take 1 capsule (60 mg total) by mouth in the morning. Patient not taking: Reported on 05/08/2024 Not In System Ref Prov gabapentin (NEURONTIN) 300 mg capsule Take 1 capsule (300 mg total) by mouth in the morning and 1 capsule (300 mg total) at noon and 1 capsule (300 mg total) in the evening and 1 capsule (300 mg total) before bedtime. Not In System Ref Prov QUEtiapine (SEROquel) 200 mg tablet Take 1 tablet (200 mg total) by mouth nightly. Patient not taking: Reported on 05/08/2024 Not In System Ref Prov valACYclovir (VALTREX) 1000 mg tablet 1 tablet (1,000 mg total) 2 (two) times a day as needed (cold sores). Patient not taking: Reported on 05/08/2024 Not In System Ref Prov Past Medical History: Patient has a past medical history of Asthma, Asthma, Back pain, Cervical disc disorder, CHB (complete heart block) ([facility]) (05/07/2024), HTN (hypertension), scabies, Low back pain, [...] drugs. Review of Systems Constitutional: Negative for activity change, appetite change, chills, fatigue, fever and unexpected weight change. HENT: Negative for congestion, dental problem, hearing loss, rhinorrhea, sore throat, trouble swallowing and voice change. Eyes: Negative for visual disturbance. Respiratory: Negative for cough, sputum production, shortness of breath and wheezing. Cardiovascular: Negative for chest pain, palpitations and leg swelling. Gastrointestinal: Negative for abdominal pain, blood in stool, melena, constipation, diarrhea, nausea and vomiting. Genitourinary: Negative for difficulty urinating, dysuria, enuresis, frequency and hematuria. Musculoskeletal: Negative for arthralgias, joint swelling and myalgias. Skin: Negative for color change, rash and wound. Neurological: Negative for dizziness, seizures, syncope, speech difficulty, weakness, numbness and headaches. Hematological: Negative for adenopathy. Does not bruise/bleed easily. Psychiatric/Behavioral: Negative for dysphoric mood and sleep disturbance. The patient is not nervous/anxious. OBJECTIVE BP 110/63 Pulse 78 Temp 36.1 C (97 F) (Axillary) Resp 15 Ht 152.4 cm (5') Wt 47.7 kg (105 lb 2.6 oz) SpO2 95% BMI 20.54 kg/m Temp: [36.1 C (97 F)-37.2 C (99 F)] 36.1 C (97 F) Pulse: [75-94] 78 Resp: [14-19] 15 BP: (110-166)/(63-88) 110/63 SpO2: [90 %-100 %] 95 % O2 Device: Nasal cannula O2 Flow Rate (L/min): [0 L/min-3 L/min] 3 L/min Intake/Output Summary (Last 24 hours) at 05/11/2024 1249 Last data filed at 05/11/2024 1102 Gross per 24 hour Intake 268 ml Output 1400 ml Net -1132 ml Physical Exam Constitutional: General: Not in acute distress. Appearance: Normal appearance and is well-developed. Cardiovascular: Rate and Rhythm: Normal rate and regular rhythm. Pulses: Radial pulses are 2+ on the right side and 2+ on the left side. Heart sounds: Normal heart sounds, S1 normal and S2 normal. No murmur heard. No friction rub. No gallop. Pulmonary: Effort: Pulmonary effort is normal. Breath sounds: Normal breath sounds. No decreased breath sounds, wheezing, rhonchi or rales. Abdominal: General: Bowel sounds are normal. Palpations: Abdomen is soft. Tenderness: There is no abdominal tenderness. Musculoskeletal: Right lower leg: No edema. Left lower leg: No edema. Skin: General: Skin is warm and dry. Capillary Refill: Capillary refill takes less than 2 seconds. Findings: No erythema, rash or wound. Neurological: General: No focal deficit present. Mental Status: Alert and oriented to person, place, and time. Psychiatric: Attention and Perception: Attention normal. Mood and Affect: Mood and affect normal. Behavior: Behavior normal. Behavior is cooperative. Medications Scheduled: aspirin, 81 mg, oral, Daily atorvastatin, 80 mg, oral, Nightly busPIRone, 10 mg, oral, BID dapagliflozin propanediol, 10 mg, oral, Daily DULoxetine, 60 mg, oral, Daily gabapentin, 300 mg, oral, 4x Daily heparin (porcine), 5,000 Units, subcutaneous, Q12H KAMILAH metoprolol succinate XL, 12.5 mg, oral, Daily prasugreL HCl, 10 mg, oral, Daily sodium chloride, 3 mL, intravenous, Q12H sodium chloride, 3 mL, intravenous, Q12H spironolactone, 25 mg, oral, Daily thiamine (B-1) 500 mg in sodium chloride 0.9 % 50 mL IVPB, 500 mg, intravenous, Q8H valsartan, 40 mg, oral, BID Infusions: As Needed: acetaminophen acetaminophen-codeine acetaminophen-codeine calcium gluconate OR calcium gluconate OR calcium gluconate dextrose dextrose dextrose 50 % in water (D50W) diphenhydrAMINE glucagon (human recombinant) LORazepam LORazepam OR LORazepam OR LORazepam LORazepam OR LORazepam OR LORazepam LORazepam OR LORazepam OR LORazepam LORazepam OR LORazepam OR LORazepam magnesium sulfate OR magnesium sulfate morphine injection nitroglycerin potassium chloride OR potassium chloride potassium chloride in water OR potassium chloride in water sodium phosphate IV OR sodium phosphate IV - central line OR sod phos di, mono-K phos mono sodium chloride sodium chloride Allergies: Sulfa (sulfonamide antibiotics) Labs Recent Results (from the past 24 hours) Folate Collection Time: 05/10/24 2:35 PM Result Value Ref Range Folate 4.2 (L) >5.8 ng/mL Vitamin B12 Collection Time: 05/10/24 2:35 PM Result Value Ref Range Vitamin B-12 295 180 - 914 pg/mL Electrolyte panel Collection Time: 05/10/24 8:37 PM Result Value Ref Range Sodium 128 (L) 134 - 146 mmol/L Potassium, Bld 4.4 3.5 - 5.0 mmol/L Chloride 95 (L) 98 - 109 mmol/L CO2 24 22 - 32 mmol/L Anion gap 9 5 - 15 mmol/L CBC without diff Collection Time: 05/11/24 5:57 AM Result Value Ref Range White Blood Cells 8.5 4.0 - 11.0 X10E9/L RBC count 3.34 (L) 3.80 - 5.20 X10E12/L Hemoglobin 11.0 (L) 11.7 - 15.5 g/dL Hematocrit 31.3 (L) 35 - 47 % MCV 94 80 - 100 fL MCH 33.1 27 - 34 pg MCHC 35.3 32 - 36 g/dL RDW 12.8 11.5 - 15.0 % Platelets 250 150 - 450 X10E9/L MPV 8.7 7 - 12 fL Comprehensive metabolic panel Collection Time: 05/11/24 5:57 AM Result Value Ref Range Sodium 128 (L) 134 - 146 mmol/L Potassium, Bld 3.9 3.5 - 5.0 mmol/L Chloride 96 (L) 98 - 109 mmol/L CO2 24 22 - 32 mmol/L Anion gap 8 5 - 15 mmol/L BUN 7 5 - 27 mg/dL Creatinine 0.38 (L) 0.40 - 1.00 mg/dL Glucose 87 65 - 99 mg/dL Calcium 7.8 (L) 8.5 - 10.5 mg/dL Total Protein 5.5 (L) 6.0 - 8.0 g/dL Albumin 3.0 (L) 3.2 - 5.3 g/dL Alkaline Phosphatase 96 39 - 130 U/L AST 24 0 - 41 U/L ALT 17 0 - 31 U/L Total bilirubin 0.9 0.3 - 1.2 mg/dL eGFR (CKD-EPI)non-race dependent >90 >59 ml/min/1.73sq.m Magnesium Collection Time: 05/11/24 5:57 AM Result Value Ref Range Magnesium 1.8 1.8 - 2.6 mg/dL Phosphorus Collection Time: 05/11/24 5:57 AM Result Value Ref Range Phosphorus 3.7 2.4 - 4.9 mg/dL Ionized calcium Collection Time: 05/11/24 5:57 AM Result Value Ref Range Calcium, ionized 4.4 (L) 4.5 - 5.3 mg/dL Radiology Echo limited W/O contrast Result Date: 05/10/2024 Narrative: Left Ventricle: Left ventricle appears normal in size. Systolic function is severely decreased with an ejection fraction of 20-25%. Right Ventricle: Right ventricular size appears normal. Systolic function is normal. EEG Result Date: 05/10/2024 Narrative: Images from the original result were not included. [facility] EEG REPORT EEG Service Date: 05/10/24 Date of Report: 05/10/24 History: Alie Briones is a 63 y.o. female with hallucinations and memory loss who is undergoing EEG to evaluate for seizures. Centrally active medications: Buspar, diphenydramine, lorazepam, morphine. Procedure: This EEG was acquired with electrodes placed according to the [id number] electrode placement system. The EEG was acquired [...] of intermittent seizures. Kat Marquez M.D., Ph.D. Acoustical Tile Patternmaker [facility] Cardiac Invasive Result Date: 05/10/2024 Narrative: Successful staged revascularization of the 80% stenosis [...] aggressive medical management. Recommend follow-up with primary mainframe developer outpatient. Echo limited W/O contrast Result Date: 05/08/2024 Narrative: Left Ventricle: Left ventricle appears normal in size. Systolic function is moderately to severely decreased with an ejection fraction of 30-35%. Aortic Valve: There is no regurgitation or stenosis. Mitral Valve: There is [id number] regurgitation. There is no evidence of mitral valve stenosis. Tricuspid Valve: There is trace regurgitation. There is no evidence of tricuspid valve stenosis. Cardiac Invasive Result Date: 05/08/2024 Narrative: Successful placement of temporary pacing wire for [...] temporary pacemaker if rhythm stabilizes Electrophysiology consultation X-ray chest 1 view Result Date: 05/07/2024 Narrative: Single view chest XR CHEST 1 VW History: dizziness Comparison: June 30, 2022 Impression: * No consolidation or pleural fluid. No acute findings. Finalized by Nnamdi Amaro MD on 05/07/2024 2:[address] cervical spine without contrast Result Date: 05/07/2024 Narrative: CT CERVICAL SPINE WO CONT INDICATION: Fall, [...] Maximilian Link MD on 05/07/2024 2:45 PM X-ray pelvis 1 or 2 views Result Date: 05/07/2024 Narrative: XR PELVIS 1 OR 2 VWS fall Pelvic trauma Findings: There is grossly no fracture or destructive lesion. Impression: * No acute findings. * Consider MRI if you suspect occult process. Finalized by Nnamdi Amaro MD on 05/07/2024 2:[address] brain without contrast Result Date: 05/07/2024 Narrative: STUDY: CT HEAD WITHOUT CONTRAST CLINICAL HISTORY: [...] Nnamdi Amaro MD on 05/07/2024 2:42 PM HOSPITAL PROBLEM LIST Principal Problem: CHB (complete heart block) ([facility]) Active Problems: HTN (hypertension) ST elevation myocardial infarction (STEMI) ([facility]) Coronary artery disease involving sk[place] coronary artery of skagway heart Mixed hyperlipidemia ASSESSMENT & PLAN Complete heart block in setting of STEMI with recurrent syncope, resolved, now with LAFB/RBBB Electrophysiology signed off, no plans for pacemaker at this time. Recommended discharging with outpatient 30 day MCOT to evaluate for any further episodes of high-degree heart block. Can follow-up with EP for primary prevention ICD/OUTBOUND SUPERVISOR if EF remains less than 30% after 3 months of GDMT. Anterior STEMI CAD s/p PCI/GARETT pLAD 05/07/24 and staged PCI/GARETT OM2 on 05/09/24 Ischemic cardiomyopathy HFrEF 20-25% Essential hypertension, normotensive Mixed hyperlipidemia Cardiology following. Continued on aspirin, Effient, Lipitor, Toprol, valsartan, Farxiga. Aldactone added today. Plans for LifeVest on discharge. Hypovolemic hyponatremia Nephrology following and managing. Continue fluid restriction. Trend sodiums per nephrology recommendations, currently remains low. Acute encephalopathy, likely toxic metabolic Alcoholism Opiate/substance abuse, kratom abuse Neurology following EEG has been normal. CIWA protocol. On IV thiamine. Neurology also recommended outpatient MRI of cervical and lumbar spines for further evaluation of ruling out possible myeloradiculopathy contributing to patient's initial fall. Admission orders placed and home medications reconciled PT/OT to evaluate and treat DVT Prophylaxis: EPC's and Heparin Subcut DC planning: pending clinical course, from home, PT recommending SNF MARCIAL CUELLAR 05/11/2024 12:49 PM [facility] 7AM-7PM & 7PM-7AM: EpicChat or page through On-Call [employer]. MARCIAL Cuellar 05/11/24 7970 I have seen and evaluated the patient, and have reviewed the history above and agree. I have repeated the carrington portions of the physical exam and concur with the LOBITO findings. I have reviewed all laboratory findings and imaging reports/films. I agree with the plan as noted above Dr Ivette Galicia MD, MRCP 05/11/2024 6:34 PM H&P was reviewed. There are no significant changes to the H&P. The procedure was explained to the patient in detail. Risks, benefits, and alternative options of the procedure were explained to the patient. Procedural risks include but are not limited to a 1% chance of heart attack, stroke, major bleeding, infection, significant arrhythmias, and even . The patient showed understanding of the risks and benefits and elected to proceed with the procedure. All questions were addressed. Brooke Doss MD PGY6 Cardiovascular Disease Fellow Cosigned by Gilberto Zepeda MD at 05/11/2024 3:52 PM EDT Associated attestation - Gilberto Zepeda MD - 05/11/2024 3:52 PM EDT Agree with the above findings. Patient seen and examined. Source Note - Berta Kang MD - 05/09/2024 7:20 AM EDT Images from the original note were not included. [facility] ACADEMIC SERVICE PROGRESS NOTE Alie Briones SUBJECTIVE Subjective History of Present Illness: Alie Briones is a 63 y.o. female with a past medical history of hypertension, HLD, osteoarthritis of cervical spine, and cervical spondylosis without myelopathy, who presented to [place] for a fall. Per the patient she had crushing chest pain this morning which she rates an 8/10. She said after the pressure she started getting light headed, dizzy, and fell but never lost consciousness. The patient reports having the chest pain for several days. In the [place] ED the patient was afebrile, HR 80, RR 18, and BP 103/55. No labs were drawn. EKG showed concerns for heart block and left and right bundle branch blocks. CT brain and CT cervical spine showed no acute intracranial findings. CXR and hip xray showed no acute findings. Cardiology was consulted and patient was transferred to [facility]. Once the patient arrived at [facility] repeat EKG showed anterior lead ST segment elevations. Patient kept cycling back and forth between heart block and sinus tachycardia. On echo, patient was having apical wall motion abnormalities. Patient was urgently taken to film laboratory technician. Interval Hx: 05/09/24: No acute overnight events. This morning the patient was out if it again. She did not want to wake to answer questions. During rounds she denies chest pain or SOB. Allergies: Allergies Allergen Reactions Sulfa (Sulfonamide Antibiotics) Itching and Rash CURRENT MEDICATIONS aspirin, 81 mg, oral, Daily atorvastatin, 80 mg, oral, Nightly busPIRone, 10 mg, oral, BID DULoxetine, 60 mg, oral, Daily gabapentin, 300 mg, oral, 4x Daily heparin (porcine), 5,000 Units, subcutaneous, Q12H KAMILAH metoprolol succinate XL, 12.5 mg, oral, Daily prasugreL HCl, 10 mg, oral, Daily QUEtiapine, 200 mg, oral, Nightly sodium chloride, 3 mL, intravenous, Q12H CONTINUOUS INFUSIONS lactated ringer's, 75 mL/hr, Last Rate: 75 mL/hr (05/08/24 0223) OBJECTIVE Objective CBC: Results from last 7 days Lab Units 05/09/24 0300 05/08/24 0330 05/07/24 1608 WBC X10E9/L 7.1 10.0 17.7* HEMOGLOBIN g/dL 10.1* 12.0 13.3 HEMATOCRIT % 28.6* 34.0* 37.8 MCV fL 96 94 95 PLATELETS X10E9/L 138* ESTIMATE OF PLATELETS, NORMAL 270 BMP: Results from last 7 days Lab Units 05/09/24 0300 05/09/24 0001 05/08/24 1813 05/08/24 1158 05/08/24 0520 05/07/242049 SODIUM mmol/L 129* 130* 129* < > 128* 123* POTASSIUM mmol/L 3.9 4.1 4.3 < > 3.3* 3.9 CHLORIDE mmol/L 96* 96* 97* < > 93* 88* CO2 mmol/L 28 28 26 < > 28 28 BUN mg/dL 8 -- -- -- 10 12 CREATININE mg/dL 0.37* -- -- -- 0.48 0.64 CALCIUM mg/dL 7.8* -- -- -- 8.2* 8.5 PHOSPHORUS mg/dL 2.5 -- -- -- -- -- MAGNESIUM mg/dL 1.9 -- -- -- 1.8 1.8 < > = values in this interval not displayed. PT/INR: Results from last 7 days Lab Units 05/07/24 1608 PROTIME sec 13.4* INR 1.2 APTT: MAG: Results from last 7 days Lab Units 05/09/24 0300 05/08/24 0520 05/07/242049 MAGNESIUM mg/dL 1.9 1.8 1.8 D Dimer: Troponin I ProBNP Lipid Panel: Lab Results Component Value Date CHOL 197 05/08/2024 TRIG 145 05/08/2024 HDL 45 05/08/2024 HDL 55 09/12/2014 CHOLHDLR 09/12/2014 RISK FEMALE RATIO MALE RATIO 1/2 AVERAGE 3.27 3.43 AVERAGE 4.44 4.97 2X 7.05 9.55 3X 11.04 23.39 Liver Panel: No results found for: ALB HgA1C: Lab Results Component Value Date HGBA1C 5.8 (H) 05/08/2024 ABG: EKG: No results found. LAST ECHO (Within 2 Years) No results found. LAST STRESS (Within 2 Years) No results found. CATH: (Within 2 Years) No results found. RADIOLOGY: No results found. PHYSICAL EXAM Admission Weight: Weight: 47.1 kg (103 lb 13.4 oz) I/O last 3 completed shifts: In: 1524.7 [P.O.:400; I.V.:697.9; IV Piggyback:426.8] Out: 3112 [Urine:3112] Weight change: -2 kg (-4 lb 6.6 oz) Wt Readings from Last 3 Encounters: 05/09/24 45.1 kg (99 lb 6.8 oz) 06/30/22 55.7 kg (122 lb 14.4 oz) 06/09/22 54.4 kg (120 lb) Vitals: Vitals: 05/09/24 0400 05/09/24 0500 05/09/24 0610 05/09/24 0700 BP: 90/64 100/68 105/65 99/63 Pulse: 73 85 77 81 Resp: 14 14 15 15 Temp: 36.4 C (97.5 F) TempSrc: Axillary SpO2: 95% 100% 99% 92% Weight: 45.1 kg (99 lb 6.8 oz) Height: Admit Weight Weight: 47.1 kg (103 lb 13.4 oz) Last 3 Weights Last 3 Weight Readings 05/07/24 1600 05/08/24 0500 05/09/24 0500 Weight: 47.1 kg (103 lb 13.4 oz) 45.6 kg (100 lb 8.5 oz) 45.1 kg (99 lb 6.8 oz) Body mass index is 19.42 kg/m . INTAKE/OUTPUT I/O last 3 completed shifts: In: 1524.7 [P.O.:400; I.V.:697.9; IV Piggyback:426.8] Out: 3112 [Urine:3112] Intake/Output Summary (Last 24 hours) at 05/09/2024 0720 Last data filed at 05/09/2024 0600 Gross per 24 hour Intake 1379.43 ml Output 1117 ml Net 262.43 ml BP 99/63 Pulse 81 Temp 36.4 C (97.5 F) (Axillary) Resp 15 Ht 152.4 cm (5') Wt 45.1 kg (99 lb 6.8 oz) SpO2 92% BMI 19.42 kg/m Physical Exam Constitutional: General: She is sleeping. HENT: Head: Normocephalic and atraumatic. Cardiovascular: Rate and Rhythm: Normal rate and regular rhythm. Pulmonary: Effort: Pulmonary effort is normal. Breath sounds: Normal breath sounds. Abdominal: General: Abdomen is flat. Bowel sounds are normal. Palpations: Abdomen is soft. Musculoskeletal: Right lower leg: No edema. Left lower leg: No edema. Neurological: Mental Status: She is lethargic. ASSESSMENT Anterior STEMI Cath on 05/07, GARETT to LAD Peak trop was 51,668 A1c elevated at 5.8, TSH and T4 normal 1.49 and 1.07 respectively, lipid panel normal, ethanol level normal Complete heart block Syncope with a fall Concern for alcohol use disorder Concern for opiate use disorder UDS positive for benzos and opiates Concern for scabies HTN HLD Hyponatremia PLAN Heart cath intervention of obtuse marginal today Continue metoprolol succinate XL 12.5 mg qd, will need GDMT Nephology consulted for concern of EMILY Trend creatine and strict I/Os Continue CIWA protocol for concern of alcohol withdrawal EP does not recommend a pacemaker at this time Will need a TTE after PCI Academic Cardiology will continue to follow Berta Kang MD Internal Medicine, PGY-1 05/09/2024 7:[address] [facility] TEACHING SERVICE This note was completed using a voice fellmongery worker system. Every effort was made to ensure accuracy. However, inadvertent computerized fellmongery worker errors may be present. Cosigned by Lizy Infante MD at 05/09/2024 1:02 PM EDT documented in this encounter [facility] 05-10-2024 Consult note Associated Order (s): IP CONSULT TO NEUROLOGY Images from the original note were not included. [facility] Neurology General Neurology Consult Note Primary Neurology service: [phone] Chief Complaint: Hallucinations, memory loss and falls History: Alie Briones is a 63 y.o. female for whom Neurology is consulted for hallucinations, memory loss and falls. Patient is admitted to the hospital after having a STEMI for which she underwent GARETT to LAD and PCI of OM. She has a past medical history significant for hypertension, hyperlipidemia, osteoarthritis of cervical spine, cervical spondylosis without myelopathy and self-medication, alcohol use disorder with krotom who presented to [place] ED after a fall. At the time patient stated she has crushing chest pain which she rated 8/10. She became lightheaded, dizzy and fell but never lost consciousness. Patient reported having chest pain for several days. Cardiology were consulted and she was transferred to [facility]. EKG in [facility] revealed anterior lead ST segment elevation. She also had complete heart block. He was urgently taken to film laboratory technician for PCI on 05/07 and 05/09. On morning of 05/10 patient was not oriented. She was speaking nonsensical phrases and kept saying there were people in the room who were not there. She was unable to answer any of the questions at the time. Neurology were then consulted. I discussed her with RN who said that she did answer questions in the morning however she has been sleeping for a while now. The patient is on CIWA protocol due to her prior alcohol use and her highest CIWA score was 24. She also received Ativan 4 mg last night. Upon my assessment, patient was somnolent and drowsy. She was responsive to verbal stimuli however she kept going back to sleep and due to this reason she was not cooperative with the neurological exam. She was able to state her name however she said it was 2023 and the month she stated was September. She was able to get her day correct. Bilateral pupils were equal and reactive to light. Reflexes were 2/4 in bilateral upper and lower extremities. Motor strength was 4/5 in bilateral upper and lower extremities. There were no tremors or any other abnormal movements. Sensation was not assess due to patient not responding to commands accurately. Past Medical History/Surgical History: Active Ambulatory Problems Diagnosis Date Noted Cervical spondylosis without myelopathy 11/03/2017 Osteoarthritis of cervical spine 03/14/2018 HTN (hypertension) Resolved Ambulatory Problems Diagnosis Date Noted No Resolved Ambulatory Problems Past Medical History: Diagnosis Date Asthma Asthma Back pain Cervical disc disorder CHB (complete heart block) ([facility] [place]) 05/07/2024 Hx of scabies Low back pain Lumbosacral disc disease Neck pain Osteoarthritis TMJ (temporomandibular joint syndrome) Family History: Family History Problem Relation Age of Onset Heart disease Mother Heart disease Father Heart disease Son Social History: Social History Socioeconomic History Marital [...] file Food Insecurity: Patient Unable To Answer (05/08/2024) Hunger Screening Food Insecurity - Worry: Patient unable to answer Food Insecurity - Inability: Patient unable to answer Transportation Needs: Patient Unable To Answer (05/08/2024) PRAPARE - Transportation Lack of Transportation (Medical): Patient unable to answer Lack of Transportation (Non-Medical): Patient unable to answer Physical Activity: Not on file Stress: Not on file Social Connections: Not on file Interpersonal Safety: Patient Unable To Answer (05/08/2024) Humiliation, Afraid, Rape, and Kick questionnaire Fear of Current or Ex-Partner: Patient unable to answer Emotionally Abused: Patient unable to answer Physically Abused: Patient unable to answer Sexually Abused: Patient unable to answer Housing Instability: Patient Unable To Answer (05/08/2024) Housing Instability Housing Instability: Patient unable to answer Medications: None Allergies: Allergies Allergen Reactions Sulfa (Sulfonamide Antibiotics) Itching and Rash Complete Review of Systems: Constitutional: No Weight Change, No Fever, No Chills, No Night Sweats, No Fatigue/Malaise Eyes: No Eye Pain, No Redness, No Discharge, No Vision Changes, No blurred vision, no double vision Cardiovascular: No Chest Pain, No SOB, No PND, No Orthopnea, No Palpitations Respiratory: No Cough, No Sputum, No Wheezing, No Dyspnea Gastrointestinal: No Nausea/Vomiting, No Diarrhea, No Constipation, No Dysphagia, No Hematochezia/Melena Genitourinary: No Dysuria, No Urinary Frequency, No Hematuria, No Incontinence, No Urgency, No Urinary Flow Changes Musculoskeletal: No Arthralgias, No Myalgias, No Joint Swelling/Joint Stiffness, No Back Pain, No Neck Pain Neuro: No Weakness, No Numbness, No Paresthesias, No Loss of Consciousness, No Syncope, No Dizziness, No Headache, No Recent Falls Psych: No Anxiety/Panic, No Depression, No Insomnia, No Personality Changes, No Delusions, No Rumination, No SI/HI, No Memory Changes Heme/Lymph: No Bruising, No Bleeding Physical Exam Vital Signs: Vitals: 05/10/24 0900 BP: 140/83 Pulse: 91 Resp: 21 Temp: SpO2: (!) 87% General: Normotensive, in no acute distress and sleeping in bed Cardiac Examination: Heart: RRR, no murmurs, no rubs, no gallops. Carotids: No bruit Peripheral Vascular System: Peripheral pulses intact Neurologic: Mental status: Alert; oriented to place and person, however not to time and situation.. No aphasia. No dysarthria. Not able to provide good history Cranial nerves: II: pupils equal and reactive to light; III, IV, : extraocular movements intact; no ptosis. No nystagmus. VII: face symmetric with normal eye closure XII: tongue midline with good movements. Motor: Decreased bulk. No fasciculations. Normal muscle tone. Motor strength 4+/5 in bilateral upper and bilateral lower extremities. No bradykinesia. No tremors. No other abnormal movements. Reflexes: DTRs 2/4 and symmetric bilaterally. No ankle clonus was noted. Plantar response is flexor bilaterally. Sensory examination: Not assess due to current condition Coordination: Deferred Gait and Station: Deferred Pertinent Labs: Imaging: CT Head 05/07 negative for any acute intracranial pathology Other Testing: Assessment: Alie Briones is a 63 y.o. female for whom Neurology is consulted for hallucinations, memory loss and falls. Patient is admitted to the hospital after having a STEMI for which she underwent GARETT to LAD and PCI of OM. She has a past medical history significant for hypertension, hyperlipidemia, osteoarthritis of cervical spine, cervical spondylosis without myelopathy and self-medication, alcohol use disorder with krotom. Impression: Acute metabolic encephalopathy likely multifactorial due to alcohol use, age and self-medication with herbal drugs versus dementia Plan: We will get a regular EEG to rule out seizures We will order vitamin B12, TSH, folate and thiamine levels We will start her on high-dose thiamine Delirium precautions: recommend frequent orientation, avoiding narcotics and sedating medications, patient should try to stay awake during daytime, open blinds during the day time, and minimize sleep interruption at night. Keep the room quiet and restful. If patient wears prescription glasses, wear glasses when applicable. It may help to play soft, relaxing music. Get lots of rest, at least 8 hours each night. Use a nightlight to help get around safely at night. Neurology consult we will continue to follow Caio White MD Neurology PGY-1 Staffed with: Dr. Smith This patient is being followed by the Neurology Resident service. Contact attending directly during these hours: Monday to 7:30-8:30 A.M. to Monday 12-1:00 p.m. Primary Neurology service: [phone] Consult neurology service: [phone] Resident Stroke Service: [phone] If the patient belongs to the Stroke [facility] service please contact the Stroke [facility] directly. Cosigned by Holly Smith MD at 05/10/2024 2:17 PM EDT Associated attestation - Holly Smith MD - 05/10/2024 2:17 PM EDT I have discussed the case of Alie Briones, including pertinent history and exam findings with the resident. I have seen and examined the patient and the carrington elements of the encounter have been performed by me. I agree with the assessment, plan and orders as documented by the resident with changes made to the note as needed. Lab Results Component Value Date LDLCALC 123 05/08/2024 No results found for: CHLPL Lab Results Component Value Date TRIG 145 05/08/2024 TRIG 56 04/06/2024 Lab Results Component Value Date HDL 45 05/08/2024 HDL 58 04/06/2024 HDL 55 09/12/2014 Lab Results Component Value Date LDLCALC 123 05/08/2024 LDLCALC 133 (H) 04/06/2024 No results found for: LABVLDL No components found for: LABA1C No components found for: EAG Lab Results Component Value Date [id number] 253 04/06/2024 Neurological work up: CT head CTA head and neck MRI brain 2 D echo Assessment and recommendations Encephalopathy likely toxic metabolic NSTEMI Complete heart block Syncope likely neurocardiogenic Status post fall likely secondary to above Alcoholism Opioids use On examination, the patient is arousable to verbal stimuli, oriented to self, intermittently following commands, and moving all extremities. Deep tendon reflexes are intact and symmetric. To rule out possible myeloradiculopathy contributing to the patient s fall, I recommend outpatient MRI of the cervical and lumbar spine for further evaluation. Initial neurodiagnostic workup, including a CT of the brain, has been unremarkable. EEG has been normal. Discussed with nursing at the bedside. Thank you for the consult. Neurology will follow. Holly Smith MD Neurology This note is created with the assistance of a speech-recognition program. While intending to generate a document that actually reflects the content of the visit, the document can still have some errors including those of syntax and sound a- like substitutions which may escape proofreading. In such instances, actual meaning can be extrapolated by contextual derivation. Associated Order(s): Consult Nephrology Images from the original note were not included. Consult Nephrology Consult performed by: Alfa Gregory MD Consult ordered by: Leobardo Greene PA-C NEPHROLOGY CONSULT NOTE Date of Admission: 05/07/2024 3:54 PM Reason for Consult: Hyponatremia Referring Provider: Leobardo Greene PA-C PCP: ROSITA Lance Chief Complaint: Recurrent falls with suspected syncope in the setting of complete heart block Parts of this history physical exam might not be comprehensive. The patient is currently unresponsive encephalopathic starts post Ativan overnight. Parts of this history physical exam was obtained by review of electronic medical record as well as her daughter the bedside. History of Present Illness: Alie Briones is a 63 y.o. female who presented with the above chief complaint. The patient presented to [facility] with the above chief complaint. He was found to be bradycardic with a heart rate of 40. EKG revealed complete heart block. The patient was transferred to [facility] for further evaluation and management. The patient on arrival to the CCU had several episode of complete heart block. The patient was taken to the EP lab and underwent cardiac catheterization with successful stenting to the mid LAD and temporary pacing wire placement. On presentation to the hospital, the patient was found to have a sodium of 126. Repeat was 123. We were consulted for evaluation of the hyponatremia the setting of the above. Of note, the patient does have history of hyponatremia in the past with a sodium of 128 in February 2022. According to the daughter, she does not have any history recurrent UTIs or kidney stones. Negative for history of kidney disease. Negative for chronic intake of NSAIDs. Negative for family history of chronic kidney disease or dialysis. Past Medical and Surgical History: Hypovolemic hyponatremia in the setting of complete heart block and hypotension. Uric acid was 3.7, TSH 1.49 and free T4 was 1.07, cortisol was 15.2, serum osmolality is pending, urine sodium and urine osmolality are pending. Complete heart block status post temporary pacing wire placement on May 07, 2024 ST-elevation VA from April of 2024 status post cardiac catheterization with stenting to the LAD on May 07, 2024 Cardiac catheterization on May 07, 2024 revealed severe diffuse disease of the LAD with moderate calcification and 100% stenosis of the proximal LAD to mid LAD which was successfully stented, 40% mid to distal left circumflex, 85% 2nd obtuse marginal and 20% proximal to mid RCA stenosis. Hypertension Asthma Degenerative joint disease Chronic back pain TMJ dysfunction Multiple cervical spine steroid injections and radiofrequency ablation for chronic neck pain. Tonsillectomy Left-sided rotator cuff repair Echocardiogram from April of 2024: Report is pending. Allergies: Allergies Allergen Reactions Sulfa (Sulfonamide Antibiotics) Itching and Rash Home Meds: Medications Prior to Admission Medication Sig Dispense Refill Last Dose/Taking amLODIPine (NORVASC) 5 mg tablet Take 1 tablet (5 mg total) by mouth in the morning. 1 baclofen (LIORESAL) 10 mg tablet Take 1 tablet (10 mg total) by mouth 3 (three) times a day. busPIRone (BUSPAR) 10 mg tablet Take 1 tablet (10 mg total) by mouth in the morning and 1 tablet (10 mg total) before bedtime. cyclobenzaprine (FLEXERIL) 10 mg tablet TAKE 1 TABLET BY MOUTH THREE TIMES A DAY NEEDED FOR MUSCLE SPASMS (Patient not taking: Reported on 07/29/2022) 90 tablet 0 DULoxetine (CYMBALTA) 60 mg capsule Take 1 capsule (60 mg total) by mouth in the morning. gabapentin (NEURONTIN) 300 mg capsule Take 1 capsule (300 mg total) by mouth in the morning and 1 capsule (300 mg total) at noon and 1 capsule (300 mg total) in the evening and 1 capsule (300 mg total) before bedtime. 120 capsule 1 ibuprofen (MOTRIN) 600 mg tablet TAKE 1 TABLET BY MOUTH EVERY 6 HOURS NEEDED FOR PAIN 60 tablet 3 melatonin 5 mg tablet,chewable Chew 1 tablet and swallow nightly. 1-2 nightly omeprazole (PriLOSEC) 40 mg capsule Take 1 capsule (40 mg total) by mouth in the morning. 0 QUEtiapine (SEROquel) 200 mg tablet Take 1 tablet (200 mg total) by mouth nightly. valACYclovir (VALTREX) 500 mg tablet TAKE 1 TABLET BY MOUTH EVERY DAY 90 tablet 0 Current medications: aspirin, 81 mg, oral, Daily atorvastatin, 80 mg, oral, Nightly busPIRone, 10 mg, oral, BID DULoxetine, 60 mg, oral, Daily gabapentin, 300 mg, oral, 4x Daily prasugreL HCl, 10 mg, oral, Daily QUEtiapine, 200 mg, oral, Nightly sodium chloride, 3 mL, intravenous, Q12H Social History: Social History Socioeconomic History Marital [...] Resource Strain: Not on file Food Insecurity: No Food Insecurity (05/07/2024) Hunger Screening Food Insecurity - Worry: Never True Food Insecurity - Inability: Never True Transportation Needs: Not on file Physical Activity: Not on file Stress: Not on file Social Connections: Not on file Interpersonal Safety: Not on file Housing Instability: Not on file Family History: Negative for chronic kidney disease or dialysis Family History Problem Relation Age of Onset Heart disease Mother Heart disease Father Heart disease Son Review of Systems: Unable to obtain. The patient is currently unresponsive Physical Exam Vitals: 05/08/24 0600 05/08/24 0700 05/08/24 0800 05/08/24 0900 BP: 97/61 92/58 95/63 91/65 Pulse: 96 89 87 88 Resp: 18 16 15 15 Temp: 36.7 C (98.1 F) TempSrc: Oral SpO2: 93% 97% 96% 92% Weight: INTAKE/OUTPUT: Intake/Output Summary (Last 24 hours) at 05/08/2024 0934 Last data filed at 05/08/2024 0814 Gross per 24 hour Intake 340.17 ml Output 3355 ml Net -3014.83 ml I/O this shift: In: 97 [I.V.:12.3; IV Piggyback:84.7] Out: 30 [Urine:30] Vital Signs: Blood pressure 91/65, pulse 88, temperature 36.7 C (98.1 F), temperature source Oral, resp. rate 15, weight 45.6 kg (100 lb 8.5 oz), SpO2 92%. Respiratory Source: O2 Device: None (Room air) Admission Weight: Weight: 47.1 kg (103 lb 13.4 oz) General appearance: Encephalopathic, unresponsive, in no apparent distress. Psychiatric: Unresponsive unable to assess HEENT: atraumatic, supple, moist oral mucosa, no JVD Cardiovascular: normal S1-S2 Respiratory: No respiratory distress with no use of accessory muscles. Clear to auscultation bilaterally with no wheezes or crackles Abdomen: soft, no tenderness, no guarding, positive bowel sounds and no hepato or splenomegaly Cardiovascular: no edema Vascular: adequate pulses and no carotid bruits. Musculoskeletal: no joint swelling or tenderness. Neurologic: Unresponsive unable to assess Lymphatic: no cervical or axillary lymphadenopathy. Laboratory Workup: Results from last 7 days Lab Units 05/08/24 0520 05/07/24204905/07/24 0003 SODIUM mmol/L 128* 123* 126* POTASSIUM mmol/L 3.3* 3.9 -- CHLORIDE mmol/L 93* 88* -- CO2 mmol/L 28 28 -- ANION GAP mmol/L 7 7 -- BUN mg/dL 10 12 -- CREATININE mg/dL 0.48 0.64 -- CALCIUM mg/dL 8.2* 8.5 -- MAGNESIUM mg/dL 1.8 1.8 -- Results from last 7 days Lab Units 05/08/24 0505/07/242049 TOTAL PROTEIN g/dL 5.8* 6.3 ALBUMIN g/dL 3.3 3.6 AST U/L 110* 124* ALT U/L 25 31 TOTAL BILIRUBIN mg/dL 1.0 0.8 ALK PHOS U/L 59 63 Results from last 7 days Lab Units 05/08/24 03305/07/24 1608 WBC X10E9/L 10.0 17.7* HEMOGLOBIN g/dL 12.0 13.3 HEMATOCRIT % 34.0* 37.8 PLATELETS X10E9/L ESTIMATE OF PLATELETS, NORMAL 270 Lab Results Component Value Date IRON 30 (L) 04/06/2024 TIBC 358 04/06/2024 FERRITIN 17 04/06/2024 IRONSAT 8 (L) 04/06/2024 Results from last 7 days Lab Units 05/08/24 0505/07/24204905/07/24 1609 BEDSIDE GLUCOSE mg/dL -- -- 159* GLUCOSE mg/dL 94 124* -- Urine Lab Results Component Value Date SPECIFICGRA 1.015 02/28/2022 PHURINE 4-10 07/06/2015 LEUKOCYTE Negative 02/28/2022 UROBILINOGEN 0.2 02/28/2022 No results found for: URINECREATI , PROTUR , MICROALBUR , MICRAU Immunology Profile No results found for: PROTELECTR , SEDRATE , CRP , RF , ANASCREEN , ANTIDSDNA , C3 , C4 , MYELOP , PROTEINASE3 No results found for: HAV , HEPAIGM , HEPBIGM , HEPBCAB , HBEAG , HEPCAB Imaging: Chest x-ray which was negative for acute cardiorenal process. Impression and Plan: 1. Hypovolemic hyponatremia: Dry oral mucosa. Hypotensive. Will start with the gentle IV fluid resuscitation awaiting workup for hyponatremia. Continue to follow sodium every 6 hours. I did ask nurses to call me if serum sodium is less than 128. 2. Complete heart block: Status post transvenous pacemaker. 3. Anterior ST-elevation [facility] status post cardiac catheterization with stenting to the LAD. Will require a stent to the 2nd obtuse marginal at some point. 4. Hypotension: Could related to sedation. IV fluids were ordered. 5. Hypokalemia: Continue to follow potassium and replace per sliding scale as needed. Lactated Ringer's will be ordered to help with hypokalemia. 6. Hypocalcemia: Vitamin-D level is pending. Follow ionized calcium and replace per sliding scale as needed Discussed with her nurse in person Discussed with her daughter the bedside Thank you for your consultation and allowing us to participate in the care of Alie Briones and please do not hesitate to call us with any questions at: Office: [phone] Office Answering Service: [phone] Alfa Gregory M.D. This note was created with the assistance of a speech-recognition program. Although the intention is to generate a document that actually reflects the content of the visit, no guarantees can be provided that every mistake has been identified and corrected by editing. Images from the original note were not included. [facility] Card[facility] - Electrophysiology [address] [place] [address] CONSULTATION PATIENT NAME: Alie Briones : 1960 AGE: 63 y.o. Date of Admission: (Not on file) Date of Consultation: 05/07/2024 Primary Nursing Home Director: none SUBJECTIVE REASON FOR CONSULT: complete heart block HISTORY OF PRESENT ILLNESS: 63F w/ PMH HTN, chronic pain who presented to [facility] ER after recurrent falls. Reported to have memory issues as well as chronic neck pain. EMS EKG demonstrated complete heart block with left bundle escape, heart rate 40 beats per minute. EKG 05/07/24 1:50 p.m. shows complete heart block as well with wide junctional escape and a left bundle pattern at 39 beats per minute. Subsequent EKG 05/07/2024 to 3:00 p.m. shows sinus rhythm with left anterior fascicular block and right bundle-branch block, QRS 169 milliseconds, TX interval 122 milliseconds. No lab work was drawn in the ER as apparently patient passed out when receiving IV, notes suggest that she was in complete heart block at the time though this is not verified. She has been sent via life flight to CCU. Upon arrival to the CCU, report from the flight nurses stated that she had several episodes of complete heart block and required 2 pushes of epi. In speaking with the patient, she states that she has had syncopal or presyncopal spells over the past 6 months. She also noted increasing chest pain without any relationship to exertion, described as a pressure substernally without radiation to her neck or arm. Once hooked up to telemetry, she was noted to have intermittent sinus tachycardia along with intermittent complete heart block and pauses. EKG taken at bedside demonstrated ST elevations anteriorly with Q-waves. Stat bedside echo was ordered, this demonstrated septal and apical akinesis consistent with STEMI in the LAD distribution. I then notified Dr. Maya Luciano regarding these findings, STAT labs were drawn at bedside. PAST MEDICAL HISTORY Past Medical History: Diagnosis Date Asthma Asthma Back pain Cervical disc disorder HTN (hypertension) Hx of scabies Low back pain Lumbosacral disc disease Neck pain Osteoarthritis TMJ (temporomandibular joint syndrome) SURGICAL HISTORY has a past surgical history that includes section; Rotator cuff repair (Left); section (1980,82,86, ); orthopedic surgery; Tonsillectomy (1969); Injection Nerve Block (Left, 02/12/2018); Injection Nerve Block (Left, 03/16/2018); Radiofrequency ablation (Left, 04/30/2018); Injection Nerve Block (Right, 07/23/2018); Injection Nerve Block (Right, 09/14/2018); Radiofrequency ablation (Right, 11/15/2019); Radiofrequency ablation (Left, 07/08/2022); and Radiofrequency ablation (Right, 07/29/2022). SOCIAL HISTORY Social History Socioeconomic History Marital status: Single [...] Resource Strain: Not on file Food Insecurity: No Food Insecurity (05/07/2024) Hunger Screening Food Insecurity - Worry: Never True Food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 Byrne MD [address] [place] [phone] PCP - General Internal Medicine 05/01/23 Pediatric Registered Nurse Relationship Specialty Start Date End Date Shaikh Byrne MD [address] [place] [id number] PCP - General Internal Medicine 05/01/23 Pediatric Registered Nurse Relationship Specialty Start Date End Date Services, [facility] [address] [place] PCP - General Family Medicine 05/07/24 Pediatric Registered Nurse Relationship Specialty Start Date End Date Services, [facility] [address] [place] PCP - General Family Medicine 05/07/24 Pediatric Registered Nurse Relationship Specialty Start Date End Date Services, [facility] [address] [place] [place] PCP - General Family Medicine 05/07/24 INFORMATION SOURCE (unrecogn ized section and content) DATE CREATED AUTHOR 03/19/2022 [facility] DATE CREATED AUTHOR AUTHOR'S ORGANIZ ATION 05/09/2024 [facility] DATE CREATED AUTHOR AUTHOR'S ORGANIZ ATION 06/01/2024 [facility] EPIC DATE CREATED AUTHOR AUTHOR'S ORGANIZ ATION 08/30/2024 [facility] DATE CREATED AUTHOR AUTHOR'S ORGANIZ ATION 09/20/2024 [facility] DATE CREATED AUTHOR AUTHOR'S ORGANIZ ATION 09/27/2024 [facility] Reason for Visit (unrecogniz ed section and content) Reason Onset Date Comments Neuro Referral/Ins Issue 04/10/2024 Reason Onset Date Comments Order clarification 05/07/2024 Reason Onset Date Comments s/p CATH/PCI 05/08/2024 Reason Onset Date Comments New Patient 05/21/2024 Reason Comments Hospital Follow-up HOSP FU TTH S/P CATH Reason Onset Date Comments Life Vest issue 06/17/2024 Reason Onset Date Comments Life Vest 09/11/2024 Reason Onset Date Comments orders 09/13/2024 Scheduled Active and Recently Administ ered Medications (unrecognized section and content) Medication Order 05/16/2024 05/17/2024 05/18/2024 aspirin chewable tablet 81 mg 81 mg, oral, Daily, First dose (after last reorder) on Mon05/08/24 at 0900, Start Post-op Day 1 0921 (Given - Provider: Karina Yousif RN) 0801 (Given - Provider: Karina Yousif RN) 1205 (Given - Provider: Rody Collins, DONTE) atorvastatin (LIPITOR) tablet 80 mg 80 mg, oral, Nightly, First dose on Mon05/08/24 at 2200, Look-alike/sound-alike medication - verify indication for use. 2139 (Given - Provider: Nishi Liao RN) 2117 (Given - Provider: Reema Parks RN) 2199 (Due) busPIRone (BUSPAR) tablet 10 mg 10 mg, oral, 2 times daily, First dose on Mon05/07/24 at 2100, Look-alike/sound-alike medication - verify indication for use. Avoid grapefruit juice. 920 (Given - Provider: Karina Yousif RN)2140 (Given - Provider: Nishi Liao RN) 0800 (Given - Provider: Karina Yousif RN)211 (Given - Provider: Reema Parks RN) 1205 (Given - Provider: Rody Collins RN)2100 (Due) dapagliflozin propanediol (FARXIGA) tablet 10 mg 10 mg, oral, Daily, First dose on Mon05/10/24 at 0900 0921 (Given - Provider: Karina Yousif RN) 08 (Given - Provider: Karina Yousif RN) 1205 (Given - Provider: Rody Collins RN) DULoxetine (CYMBALTA) DR capsule 60 mg 60 mg, oral, Daily, First dose (after last reorder) on Mon05/08/24 at 0900, Look-alike/sound-alike medication - verify indication for use. Swallow whole-do not crush or chew. Although the calender operator helper does not recommend opening the capsule, the contents of capsule may be sprinkled on applesauce or in apple juice and swallowed (without chewing) immediately; do not sprinkle contents on chocolate pudding. 0922 (Given - Provider: Karina Yousif RN) 08 (Given - Provider: Karina Yousif RN) 1206 (Given - Provider: Rdoy Collins RN) folic acid (FOLVITE) tablet 1 mg 1 mg, oral, Daily, First dose on Mon05/13/24 at 0900, Look-alike/sound-alike medication - verify indication for use. 0921 (Given - Provider: Karina Yousif RN) 0800 (Given - Provider: Karina Yousif RN) 1205 (Given - Provider: Rody Collins, DONTE) gabapentin (NEURONTIN) capsule 300 mg 300 mg, oral, 4 times daily, First dose on Mon05/07/24 at 2200, Look-alike/sound-alike medication - verify indication for use. 0921 (Given - Provider: Karina Yousif RN)1324 (Given - Provider: Karina Yousif RN)1631 (Given - Provider: Karina Yousif RN)2140 (Given - Provider: Nishi Liao RN) 0800 (Given - Provider: Karina Yousif RN)1432 (Given - Provider: Karina Yousif RN)1810 (Given - Provider: Karina Yousif RN)2118 (Given - Provider: Reema Parks RN) 1205 (Given - Provider: Rody Collins, DONTE)1300 (Not Given - Provider: Rody Collins RN - Reason: Other)1700 (Canceled Entry - Provider: Gale Franklin RN)2200 (Due) heparin (porcine) injection 5,000 Units 5,000 Units, subcutaneous, Every 12 hours scheduled, First dose on Mon05/08/24 at 1030, Look-alike/sound-alike medication - verify indication for use. Observe for bleeding. 0920 (Given - Provider: Karina Yousif RN)214 (Given - Provider: Nishi Liao RN) 0800 (Given - Provider: Karina Yousif RN)212 (Given - Provider: Reema Parks RN) 1205 (Given - Provider: Rody Collins RN)2100 (Due) metoprolol succinate XL (TOPROL XL) 24 hr tablet 12.5 mg 12.5 mg, oral, Daily, First dose on Mon05/08/24 at 1030, Look-alike/sound-alike medication - verify indication for use. Do not crush or chew. 0921 (Given - Provider: Karina Yousif RN) 0800 (Given - Provider: Karina Yousif RN) 1205 (Given - Provider: Rody Collins RN) prasugreL HCl (EFFIENT) tablet 10 mg 10 mg, oral, Daily, First dose on Mon05/08/24 at 0900, Start Post-op Day 1 0922 (Given - Provider: Karina Yousif RN) 0801 (Given - Provider: Karina Yousif RN) 1205 (Given - Provider: Rody Collins RN) sennosides-docusate sodium (SENOKOT-S) 8.6-50 mg 2 tablet 2 tablet, oral, 2 times daily, First dose on Mon05/12/24 at 2100 0921 (Given - Provider: Karina Yousif RN)2140 (Given - Provider: Nishi Liao RN) 0800 (Given - Provider: Karina Yousif RN)2117 (Given - Provider: Reema Parks, DONTE) 120 (Given - Provider: Rody Collins, DONTE)2100 (Due) sodium chloride 0.9 % flush 3 mL 3 mL, intravenous, Every 12 hours, First dose on Mon05/07/24 at 2100 0900 (Given - Provider: Karina Yousif RN)214 (Given - Provider: Nishi Liao RN) 09 (Given - Provider: Karina Yousif RN)2123 (Given - Provider: Reema Parks RN) 120 (Given - Provider: Rody Collins, DONTE)2100 (Due) sodium chloride 0.9 % flush 3 mL 3 mL, intravenous, Every 12 hours, First dose on Pearl 05/09/24 at 2100 0900 (Given - Provider: Karina Yousif RN)2143 (Given - Provider: Nishi Liao RN) 899 (Given - Provider: Karina Yousif RN)2119 (Given - Provider: Reema Parks RN) 120 (Given - Provider: Rody Collins, DONTE)2100 (Due) spironolactone (ALDACTONE) tablet 25 mg 25 mg, oral, Daily, First dose on Mon05/11/24 at 1030 0922 (Given - Provider: Karina Yousif RN) 0801 (Given - Provider: Karina Yousif RN) 1206 (Given - Provider: Rody Collins, DONTE) thiamine HCl (VITAMIN B-1) tablet 100 mg 100 mg, oral, Daily, First dose on Mon05/13/24 at 1200, Look-alike/sound-alike medication - verify indication for use. 0921 (Given - Provider: Karina Yousif RN) 0800 (Given - Provider: Karina Yousif RN) 1205 (Given - Provider: Rody Collins RN) valsartan (DIOVAN) tablet 40 mg 40 mg, oral, 2 times daily, First dose on Mon05/10/24 at 0900, Look-alike/sound-alike medication - verify indication for use. 0922 (Given - Provider: Karina Yousif RN)2140 (Given - Provider: Nishi Liao RN) 0801 (Given - Provider: Karina Yousif RN)2118 (Given - Provider: Reema Parks RN) 1206 (Given - Provider: Rody Collins, DONTE)2100 (Due) PRN Medication Order 05/16/2024 05/17/2024 05/18/2024 acetaminophen (TYLENOL) tablet 650 mg 650 mg, oral, Every 4 hours PRN, mild pain - pain scale 1-3, headaches, Starting on Pearl 05/09/24 at 1744 acetaminophen-codeine (TYLENOL #3) 300-30 mg per tablet 1 tablet 1 tablet, oral, Every 4 hours PRN, moderate pain - pain scale 4-6, Starting on Pearl 05/09/24 at 1744 1631 (Given - Provider: Karina Yousif RN) acetaminophen-codeine (TYLENOL #3) 300-30 mg per tablet 2 tablet 2 tablet, oral, Every 4 hours PRN, severe pain - pain scale 7-10, Starting on Pearl 05/09/24 at 1744 benzonatate (TESSALON PERLES) capsule 100 mg 100 mg, oral, 3 times daily PRN, cough, Starting on 05/18/24 at 1240, Do not crush, chew or dissolve. calcium gluconate 3,000 mg in sodium chloride 0.9 % 100 mL IVPB(Linked Group 1) 3,000 mg, intravenous, at 130 mL/hr, Administer over 60 Minutes, As needed, for ionized calcium level less than 3 mg/dL, Starting on Mon05/07/24 at 2243, CALL PHYSICIAN if this dose is administered. Recheck ionized calcium 6 hours after infusion. Hold calcium replacement for phosphorus greater than 5.5 mg/dL. VESICANT (RED) calcium gluconate IVPB 1000 mg/50 mL (20 mg/mL premix)(Linked Group 1) 1,000 mg, intravenous, at 50 mL/hr, Administer over 60 Minutes, As needed, for ionized calcium level 3.5 to 4.4 mg/dL, Starting on 05/07/24 at 2243, Recheck ionized calcium 6 hours after infusion. Hold calcium replacement for phosphorus greater than 5.5 mg/dL. VESICANT (RED) calcium gluconate IVPB 2000 mg/100 mL (20 mg/mL premix)(Linked Group 1) 2,000 mg, intravenous, at 100 mL/hr, Administer over 60 Minutes, As needed, for ionized calcium level 3 to 3.4 mg/dL, Starting on Mon05/07/24 at 2243, Recheck ionized calcium 6 hours after infusion. Hold calcium replacement for phosphorus greater than 5.5 mg/dL. VESICANT (RED) dextrose (GLUTOSE) 40 % gel 15 g 15 g, oral, As needed, low blood sugar, blood glucose less than 70 mg/dL, Starting on Mon05/07/24 at 1836, Recovery (CV) and Post-Procedure, If patient conscious and taking PO. If blood glucose is not greater than 70 mg/dL after initial treatment, repeat treatment. dextrose (GLUTOSE) 40 % gel 15 g 15 g, oral, As needed, low blood sugar, blood glucose less than 70 mg/dL, Starting on Pearl 05/09/24 at 1744, If patient conscious and taking PO. If blood glucose is not greater than 70 mg/dL after initial treatment, repeat treatment. dextrose 50 % in water (D50W) 50% solution 25 mL 25 mL, intravenous, As needed, low blood sugar, blood glucose less than 70 mg/dL and unconscious or NPO with IV access, Starting on Mon05/07/24 at 1836, Recovery (CV) and Post-Procedure, Push over 1-3 minutes STAT. If conscious and not NPO, immediately follow with meal tray or high protein (7 grams) snack if tray not available. If NPO, initiate 5% dextrose in water at 100 mL/hr and contact prescriber for additional orders. If blood glucose is not greater than 70 mg/dL after initial treatment, repeat treatment. VESICANT (RED) Warning: HYPERTONIC solution. diphenhydrAMINE (BENADRYL) injection 25 mg 25 mg, intravenous, Once as needed, allergic response to contrast, Starting on Mon05/07/24 at 1836, For 1 dose, Notify mainframe developer if administered Look-alike/sound-alike medication - verify indication for use. glucagon HCL injection 1 mg 1 mg, intramuscular, As needed, low blood sugar, blood glucose less than 70 mg/dL and unconscious or NPO without IV access., Starting on Mon05/07/24 at 1836, Recovery (CV) and Post-Procedure, If conscious and not NPO, immediately follow with meal tray or high protein (7Grams) snack if tray not available. If NPO, initiate IV 5% Dextrose/Water at 100 mL/hr and contact prescriber for additional orders. If blood glucose is not greater than 70 mg/dL after initial treatment, repeat treatment. LORazepam (ATIVAN) tablet 0.5 mg (CANCELED) 0.5 mg, oral, Every 12 hours PRN, anxiety, Starting on Pearl 05/16/24 at 1240, Look-alike/sound-alike medication - verify indication for use. 2139 (Given - Provider: Nishi Liao RN) LORazepam (ATIVAN) tablet 0.5 mg 0.5 mg, oral, Nightly PRN, anxiety, Starting on Mon05/17/24 at 1452, Look-alike/sound-alike medication - verify indication for use. 2116 (Given - Provider: Reema Parks RN) magnesium sulfate IVPB 2000 mg/50 mL in iso-osmotic water (40 mg/mL premix)(Linked Group 2) 2,000 mg, intravenous, at 25 mL/hr, Administer over 120 Minutes, As needed, for magnesium level 1.7 to 1.9 mg/dL or ionized magnesium level 0.45 to 0.5 mmol/L, Starting on Mon05/07/24 at 2243, Use premix solution. Default to ionized magnesium [...] level 0.44 mmol/L or less, Starting on Mon05/07/24 at 2243, Use premix solution. Default to ionized magnesium level in cases where patient has both magnesium and ionized magnesium results. If administered, check ionized magnesium (or total magnesium if ionized magnesium unavailable) level 4 hours after infusion. morphine injection 2 mg 2 mg, intravenous, Every 8 hours PRN, Breakthrough pain, Starting on Pearl 05/16/24 at 1240, Look-alike/sound-alike medication - verify indication for use. nicotine (NICODERM CQ) 21 mg/24 hr 1 patch 1 patch, transdermal, Administer over 24 Hours, Daily PRN, smoking cessation, if needed, change to daily., Starting on 05/11/24 at 1550, Remove patch prior to MRI procedure as serious vazquez may occur- patch may be reapplied. Remove previous patch, if present, before applying new. 1356 (Medication Removed - Provider: Karina Yousif, DONTE)1400 (Canceled Entry - Provider: Karina Yousif, RN)1447 (Medication Applied - Provider: Karina Yousif RN) 1432 (Medication Removed - Provider: Karina Yousif RN)1433 (Medication Applied - Provider: Karina Yousif RN) 1433 (Medication Removed - Provider: Gale Franklin RN) nitroglycerin (NITROSTAT) disintegrating tablet 0.4 mg 0.4 mg, sublingual, Every 5 min PRN, chest pain, Starting on 05/07/24 at 1836, Administer up to 3 doses per episode polyethylene glycol (GLYCOLAX) packet 17 g 17 g, oral, Daily PRN, constipation, Starting on 05/12/24 at 1738, Look-alike/sound-alike medication - verify indication for use. Dissolve 1 packet (17 gm) in 8 ounces of water, juice, soda, coffee or tea. potassium chloride (K-TAB,KLOR-CON) CR tablet 20-50 mEq(Linked Group 3) 20-50 mEq, oral, As needed, for potassium replacement, Starting on 05/07/24 at 2243, Progress to oral potassium replacement when patient tolerating oral intake. If dose administered, recheck potassium level 4 hours after last dose. For potassium level 3.4 to 3.8 mmol/L and Serum Creatinine 1.2 or less=30 mEq. For potassium level 3.1 to 3.3 mmol/L and Serum Creatinine 1.2 or less=40 mEq. For potassium level 3 mmol/L or less and Serum Creatinine 1.2 or less=50 mEq. For potassium level 3.4 to 3.8 mmol/L and Serum Creatinine greater than 1.2=20 mEq. For potassium level 3.1 to 3.3 mmol/L and Serum Creatinine greater than 1.2=30 mEq. For potassium level 3 mmol/L or less and Serum Creatinine greater than 1.2=40 mEq. Do not crush or chew. potassium chloride (KAYCIEL) 20 mEq/15 mL solution 20-50 mEq(Linked Group 3) 20-50 mEq, oral, As needed, potassium replacement, Starting on Mon05/07/24 at 2243, Progress to oral potassium replacement when patient [...] policy and monitor potassium levels potassium chloride IVPB 10 mEq/100 mL in water (0.1 mEq/mL premix)(Linked Group 4) 10 mEq, intravenous, at 100 mL/hr, Administer over 60 Minutes, As needed, for potassium replacement, Starting on Mon05/07/24 at 2243, Administer Potassium Chloride IVPB in 10 mEq [...] As needed, for potassium replacement, Starting on Mon05/07/24 at 2243, Administer Potassium Chloride IVPB in 10 mEq [...] than 1.2 = 40 mEq VESICANT (YELLOW) sod phos di, mono-K phos mono (K-PHOS NEUTRAL) 250 mg tablet 2 tablet(Linked Group 5) 2 tablet, oral, As needed, for phosphorous level 2.3 mg/dL or less, Starting on Mon05/07/24 at 2243, If dose administered, recheck phosphorus level 4 hours after last dose. Look-alike/sound-alike medication - verify indication for use. Give with a full glass of water. sodium chloride 0.9 % flush 3 mL 3 mL, intravenous, As needed, line care, before and after each intermittent use, Starting on Mon05/07/24 at 1836 sodium chloride 0.9 % flush 3 mL 3 mL, intravenous, As needed, line care, before and after each intermittent use, Starting on Mon05/09/24 at 1744 sodium phosphate 20 mmol in sodium chloride 0.9 % 100 mL IVPB(Linked Group 5) 20 mmol, intravenous, at 26.7 mL/hr, Administer over 4 Hours, As needed, for phosphorous level 2.3 mg/dL or less, Starting on Mon05/07/24 at 2243, Administer over 4 hours via dedicated line(central line). If administered, recheck phosphorus level 4 hours after infusion complete. Infuse using central line access. sodium phosphate 20 mmol in sodium chloride 0.9 % 250 mL IVPB(Linked Group 5) 20 mmol, intravenous, at 42.8 mL/hr, Administer over 6 Hours, As needed, for phosphorous level 2.3 mg/dL or less, Starting on Mon05/07/24 at 2243, Administer over 6 hours via dedicated line (peripheral line). If administered, recheck phosphorus level 4 hours after infusion complete. Linked Groups Order Group 1: calcium gluconate IVPB 1000 mg/50 mL (20 mg/mL premix)Jump to med 1,000 mg, intravenous, at 50 mL/hr, Administer over 60 Minutes, As needed, for ionized calcium level 3.5 to 4.4 mg/dL, Starting on Mon05/07/24 at 2243, Recheck ionized calcium 6 hours after infusion. Hold calcium replacement for phosphorus greater than 5.5 mg/dL. VESICANT (RED) Or calcium gluconate IVPB 2000 mg/100 mL (20 mg/mL premix)Jump to med 2,000 mg, intravenous, at 100 mL/hr, Administer over 60 Minutes, As needed, for ionized calcium level 3 to 3.4 mg/dL, Starting on Mon05/07/24 at 2243, Recheck ionized calcium 6 hours after infusion. Hold calcium replacement for phosphorus greater than 5.5 mg/dL. VESICANT (RED) Or calcium gluconate 3,000 mg in sodium chloride 0.9 % 100 mL IVPBJump to med 3,000 mg, intravenous, at 130 mL/hr, Administer over 60 Minutes, As needed, for ionized calcium level less than 3 mg/dL, Starting on Mon05/07/24 at 2243, CALL PHYSICIAN if this dose is administered. [...] level 0.45 to 0.5 mmol/L, Starting on Mon05/07/24 at 2243, Use premix solution. Default to ionized magnesium [...] level 0.44 mmol/L or less, Starting on Mon05/07/24 at 2243, Use premix solution. Default to ionized magnesium level in cases where patient has both magnesium and ionized magnesium results. If administered, check ionized magnesium (or total magnesium if ionized magnesium unavailable) level 4 hours after infusion. Group 3: potassium chloride (K-TAB,KLOR-CON) CR tablet 20-50 mEqJump to med 20-50 mEq, oral, As needed, for potassium replacement, Starting on Mon05/07/24 at 2243, Progress to oral potassium replacement when patient tolerating oral intake. If dose administered, recheck potassium level 4 hours after last dose. For potassium level 3.4 to 3.8 mmol/L and Serum Creatinine 1.2 or less=30 mEq. For potassium level 3.1 to 3.3 mmol/L and Serum Creatinine 1.2 or less=40 mEq. For potassium level 3 mmol/L or less and Serum Creatinine 1.2 or less=50 mEq. For potassium level 3.4 to 3.8 mmol/L [...] oral, As needed, potassium replacement, Starting on Mon05/07/24 at 2243, Progress to oral potassium replacement when patient [...] As needed, for potassium replacement, Starting on Mon05/07/24 at 2243, Administer Potassium Chloride IVPB in 10 mEq [...] As needed, for potassium replacement, Starting on Mon05/07/24 at 2243, Administer Potassium Chloride IVPB in 10 mEq [...] mEq over a minimum of 1 hour. Group 5: sodium phosphate 20 mmol in sodium chloride 0.9 % 250 mL IVPBJump to med 20 mmol, intravenous, at 42.8 mL/hr, Administer over 6 Hours, As needed, for phosphorous level 2.3 mg/dL or less, Starting on Mon05/07/24 at 2243, Administer over 6 hours via dedicated line (peripheral line). If administered, recheck phosphorus level 4 hours after infusion complete. Or sodium phosphate 20 mmol in sodium chloride 0.9 % 100 mL IVPBJump to med 20 mmol, intravenous, at 26.7 mL/hr, Administer over 4 Hours, As needed, for phosphorous level 2.3 mg/dL or less, Starting on Mon05/07/24 at 2243, Administer over 4 hours via dedicated line(central line). If administered, recheck phosphorus level 4 hours after infusion complete. Infuse using central line access. Or sod phos di, mono-K phos mono (K-PHOS NEUTRAL) 250 mg tablet 2 tabletJump to med 2 tablet, oral, As needed, for phosphorous level 2.3 mg/dL or less, Starting on Mon05/07/24 at 2243, If dose administered, recheck phosphorus level 4 hours after last dose. Look-alike/sound-alike medication - verify indication for use. Give with a full glass of water. FOR RECORDS PERTAINING TO PATIENTS WHO ARE OR HAVE BEEN ENROLLED IN A CHEMICAL DEPENDENCY/SUBSTANCEABUSE PROGRAM, SOME INFORMATION MAY BE OMITTED. This clinical summary was aggregated from multiple sources. Caution should be exercised in using it in the provision of clinical care. This summary normalizes information from multiple sources, and as a consequence, information in this document may materially change the coding, format and clinical context of patient data. In addition, data may be omitted in some cases. CLINICAL DECISIONS SHOULD BE BASED ON THE PRIMARY CLINICAL RECORDS. [employer] [facility]. provides no warranty or guarantee of the accuracy or completeness of information in this document.
[2024-09-30 12:17] VITALS: BP 97/57; PULSE 80; TEMP 36.3; O2SAT 97
[2024-09-30 12:56] VITALS: BP 95/53; PULSE 78; O2SAT 98
[2024-09-30 12:57] VITALS: BP 97/58; PULSE 72; O2SAT 97
[2024-09-30] MEDS: LIDOCAINE HCL 2% 400 MG/20 ML MDV 6 ML INJ (12:59)
[2024-09-30] MEDS: BUPIVACAINE HCL 0.25% PF 25 MG/10 ML VIAL 2 ML INJ (13:06)
[2024-09-30] MEDS: DEXAMETHASONE SOD PHOS 10 MG/ML VIAL INJ (13:06)
--- NOTE | 2024-09-30 13:09 | P.ON_ITS ---
Date of procedure: 09/30/24 Pre-op diagnosis: Pain due to cervical spondylosis without myelopathy Post-op diagnosis: same as pre-op Procedure: Procedure: Left C5-6, 6-7 radiofrequency ablation Medications: Bupivacaine 0.25% 2cc, lidocaine 2% 3cc, dexamethasone 10mg The patient was seen and examined in the preoperative holding area.? The site was marked.? Written informed consent was obtained and placed on the chart.? The patient was brought to the medical procedure unit and placed in the prone position.? A timeout was completed verifying correct patient, procedure, positioning, and special requirements.? The skin overlying the target points, the designated medial branch, was prepped and draped in the usual sterile fashion.? The target point was achieved with a 20-gauge 15 cm with a 10 mm curved active tip radiofrequency cannula under direct fluoroscopic visualization.? The needle was inserted at level C5 on the left side. Needle tip position was confirmed with lateral fluoroscopic position.? Motor stimulation was carried out at 2 Hz up to 5 volts with the absence of extremity activity.? This was repeated at level C6, 7 on left side.?? Sensory stimulation was carried out.? Concordant pain was realized at the above- mentioned sites.? Then radiofrequency lesioning was carried out times 90 seconds at 80 degrees times 2 lesions at each level.? The radiofrequency probe was removed prior to cannula removal.? The above-mentioned injectate was placed in 1 mL increments.? The needle was removed.? Insertion sites were covered.? The patient was taken to the postoperative recovery area and monitored for an appropriate length of time before being found suitable for discharge in the company of a responsible adult. Anesthesia: Local Surgeon: Alexander Mayers Pathology: none sent Condition: stable Disposition: no change
== END 2024-09-30 13:13 | disposition home or self-care (01) ==
PROVIDERS: Visit Provider Anesthesiology
DX: M47.812 Spondylosis without myelopathy or radiculopathy, cervical region (principal); M54.2 Cervicalgia
CPT/HCPCS: 64633; 64634; J0665; J1100

== ENCOUNTER 2024-11-25 09:06 | Day surgery (SDC) | payer MEDICARE, MEDICAID, SELFPAY ==
--- OUTSIDE RECORDS SUMMARY | 2024-11-12 09:28 | XMS_ITS | Continuity of Care Document ---
Author Organization [facility] Address [address] [place] [address] Phone Care Team Providers Care Refined Syrup Operator Name Role Phone Igor Holliday MD Primary Care Provider Art Blue PhD Attending Provider [phone] Care Teams Patient Care Team Team Status: Active Member Role Status Dates Igor Holliday MD Primary Care Provider Active Patient Care Team Team Status: Inactive Member Role Status Dates Igor Holliday MD Primary Care Provider Active Start: November 12, 2024 End: November 12, 2024 Art Blue , PhD Attending Provider Active Start: November 12, 2024 End: November 12, 2024 Chief Complaint and Reason for Visit Chief Complaint Admit Date *UPDATE HIPAA*go over testing 05/20 emb2024 12:59pm Allergies, Adverse Reactions, Alerts Allergen Type Severity Reaction Last Updated Verified Status Sulfa (Sulfonamide Antibiotics) Allergy Unknown Difficulty Breathing July 06, 2021 4:31pm Yes Active Social History Smoking Status Status Start Date End Date Date of Observa tion Smokes tobacco daily (finding) October 08, 2024 2:09pm Observation Status Observation Response Date of Response Legal Sex Female (finding) Sex Assigned At Female September Problems Inactive/Resolved Problems Medical Problem Onset Date Status Comments Scabies Unknown Resolved Problem List cl sulaiman-up per request of Phys. EHR Cmte Alcohol-induced major neuroc ognitive disorder, amnestic confabulatory type, with moderate or severe use disorder Unknown Resolved Problem List clean-u p per request of Phys. EHR Cmte Rash Unknown Resolved Problem List cl sulaiman-up per request of Phys. EHR Cmte Psychosis Unknown Resolved Problem List cl sulaiman-up per request of Phys. EHR Cmte Medications Medication Status Dose Units Route Directions Qty Days St art Date Stop Date End Date Instructions Adherence Cyclobenzap rine 10 mg tablet Active 10 MG PO Three times daily July 06, 2021 12:00a m Unknown Gabapentin 300 mg capsule Active 300 MG PO Three times daily July 06, 2021 12:00a m Unknown Ibuprofen 600 mg tablet Active 600 MG PO Q6H as needed for Pain July 06, 2021 12:00a m Unknown Duloxetine 60 mg capsule,del ayed release(DR/ EC) Active 60 MG PO Daily July 06, 2021 12:00a m Unknown Magnesium Sulfate (Bulk) (Epsom Salt) 100 % Crystals Discont inued 1 APPLIC TOPICA L Three times daily July 06, 2021 12:00a m July 11, 2021 12:09 pm Valacyclovi r 500 mg tablet Active 500 MG PO Daily July 06, 2021 12:00a m Unknown Ergocalcife rol (Vitamin D2) 1,250 mcg (50,000 unit) Capsule Active 1250 MCG PO We@0900 5 July 11, 2021 12:00a m Unknown Thiamine Hcl (Vitamin B1) 100 mg Tablet Active 100 MG PO Daily July 11, 2021 12:00a m Unknown Pravastatin 20 mg Tablet Active 20 MG PO Every evening July 11, 2021 12:00a m Unknown Risperidone 1 mg Tablet Active 1 MG PO Bedtime 15 July 11, 2021 12:00a m Unknown Ivermectin (Stromectol ) 3 mg Tablet Active 0 .ROUTE .COMPLEX July 11, 2021 12:00a m 10.5 mg orally ;take 3.5 tabs on 07/13, 07/14, and 07/20 (for a total 5 dose course of which you received 2 doses while in hospital) Unknown Cyanocobala min (Vitamin B-12) 1,000 mcg Tablet Active 1000 MCG PO Every morning July 11, 2021 12:00a m Unknown Advance Directives Advance Directive Response Recorded Date/ Time Advance Directives No October 08, 2024 2:09pm Insurance Providers Guarantor Alie Lowe Address [address] [facility] [address] Contact Info. Home Phone: Payer Policy Id Subscriber's Name Subscriber Id Effectiv e Date Expiration Date Medicaid [id number] Alie Lowe [id number] Medicare [id number] Alie Lowe [id number] Medicare PFFS Misc [id number] Alie Lowe [id number] [facility] [id number] Alie Lowe [id number] [facility] Plans [facility] PFFS [id number] Alie Lowe [id number] Encounters Encounter Location(s) Arrival/Admit Date Discharge/Depart Date Provider(s) Departed Physician/Prov ider Office Visit -[facility] Neurology November 12, 2024 12:59pm November 12, 2024 1:27pm Sergo Erazo PhD
--- OUTSIDE RECORDS SUMMARY | 2024-11-25 09:09 | XMS_ITS | Encounter Summary ---
Author Organization [email or web address] Address [id number] [address] [place] [address] Care Team Providers Care Bread Stacker Name Role Phone Services, [facility] Primary Care Provider Reason for Visit * Reason Comments Med Refill Encounter Details Date Type Department Care Team ([facility] Contact Info) Description 09/12/2021 Refill [facility] [address] [place] [address] Igor Holliday MD [address] Provider retired 05/14/24 [place] [address] Social History Tobacco Use Types Packs/Day Years [...] Upcoming Encounters Date Type Department Care Team ([facility] Contact Info) Description 12/10/2024 12:30 PM EDT Office Visit [facility] [address] [place] [address] Nishi Graham, INFORMATION OFFICER-BRIM BUSTER [address] [place] [address] documented as of this encounter Visit Diagnoses [...] documented as of this encounter Care Teams Bread Stacker Relationship Specialty Start Date End Date Services, [facility] [address] [place], [place] PCP - General Family Medicine 05/07/24 documented as of this encounter
--- OUTSIDE RECORDS SUMMARY | 2024-11-25 09:09 | XMS_ITS | Encounter Summary ---
Author Organization [facility] Address [facility] [id number] [address] [place] [address] Care Team Providers Care Feed Crusher Operator Name Role Phone Services, [facility] Primary Care Provider Reason for Visit * Reason Comments Med Refill Encounter Details Date Type Department Care Team ([facility] st Contact Info) Description 09/28/2022 Refill [facility] [address] [place] [address] Beatriz Ash, MANAGER MUTUAL FUND-[facility] [address] [place], [place] [id number] Social History Tobacco Use Types Packs/Day Years [...] Care Team (Late st Contact Info) Description 12/10/2024 12:30 PM EDT Office Visit [facility] [address] [place] [address] Nishi Graham, MANAGER MUTUAL FUND-HOSPITAL TECHNICIAN [address] [place] [address] documented as of this encounter Visit Diagnoses [...] documented as of this encounter Care Teams Feed Crusher Operator Relationship Specialty Start Date End Date Services, [facility] [address] [place], [place] PCP - General Family Medicine 05/07/24 documented as of this encounter
--- OUTSIDE RECORDS SUMMARY | 2024-11-25 09:09 | XMS_ITS | Encounter Summary ---
Author Organization [facility] Address [id number] [address] [place] [address] Care Team Providers Care Recreation Facility Manager Name Role Phone Services, [facility] Primary Care Provider Reason for Visit * Reason Comments Med Refill Encounter Details Date Type Department Care Team ([facility] st Contact Info) Description 08/17/2022 Refill [facility] [address] [place] [address] Beatriz Ash, DIGITAL MARKETING PROGRAM MANAGER-[facility] [address] [place], [place] [id number] Social History Tobacco Use Types Packs/Day Years [...] [address] [place] [address] Nishi Graham, DIGITAL MARKETING PROGRAM MANAGER-TRAFFIC LINE PAINTER [address] [place] [address] documented as of this encounter Visit Diagnoses [...] documented as of this encounter Care Teams Recreation Facility Manager Relationship Specialty Start Date End Date Services, [facility] [address] [place], [place] PCP - General Family Medicine 05/07/24 documented as of this encounter
--- OUTSIDE RECORDS SUMMARY | 2024-11-25 09:09 | XMS_ITS | Encounter Summary ---
Author Organization [facility] tem Address [facility]-[id number] [address] [place] [address] Care Team Providers Care School Occupational Therapist Name Role Phone Services, [facility] Primary Care Provider Reason for Visit * Reason Comments Med Refill Encounter Details Date Type Department Care Team ([facility] st Contact Info) Description 10/16/2021 Refill [facility] [address] [place] [address] Mao San PA [address] [place], [place] [phone] Spondylosis of cervical region without myelopathy or [...] requests. The patient must contact our office. [phone] * Telephone Encounter - Terra Rodriguez RN - 10/16/2021 5:03 AM EDT Patient left message yesterday regarding prescription. Call returned to patient to clarify. Patientstates she would like refill of Gabapentin and she would like it sent to [facility]. Upon review of chart patient, order for Gabapentin was signed on 11/11/2021. Per [facility] patient last filled 09/16/2021. Call placed to [facility] to see if there was an issue with the previously e-scribed order. Hooker Off spoke with Dionicio ([facility]) he confirms patient's last fill was 09/16/2021. Dionicio runs script throughinsurance to see if there was an insurance issue. He confirms that there is no issue and apologizesfor the delay. He states that he will prepare script for patient to warehouse picker today. Call placed to patient to inform her of conversation with [facility]. She verbalized understanding. documented in this encounter Plan of Treatment Upcoming Encounters Date Type Department Care Team (Late st Contact Info) Description 12/10/2024 12:30 PM EDT Office Visit [facility] [address] [place] [address] Nishi Graham, DIRECTOR TALENT ACQUISITION-OPTICAL ENGINEERING TECHNICIAN [address] [place] [address] documented as of this encounter Visit Diagnoses [...] documented as of this encounter Care Teams School Occupational Therapist Relationship Specialty Start Date End Date [facility], [facility] [address] [place], [place] PCP - General Family Medicine 05/07/24 documented as of this encounter
--- OUTSIDE RECORDS SUMMARY | 2024-11-25 09:09 | XMS_ITS | Encounter Summary ---
Author Organization [facility] Address [id number] [address] [place] [address] Care Team Providers Care Traveling Phlebotomist Name Role Phone Services, [facility] Primary Care Provider Reason for Visit * Reason Comments Med Refill Encounter Details Date Type Department Care Team ([facility] Contact Info) Description 06/09/2022 Refill [facility] [address] [place] [address] Beatriz Ash, CUSTOMS GUARD-[facility] [address] [place], [place] [phone] Social History Tobacco Use Types Packs/Day Years [...] Upcoming Encounters Date Type Department Care Team ([facility] Contact Info) Description 12/10/2024 12:30 PM EDT Office Visit [facility] [address] [place] [address] Nishi Graham, CUSTOMS GUARD-[facility] [address] [place] [address] documented as of this encounter Visit Diagnoses [...] documented as of this encounter Care Teams Traveling Phlebotomist Relationship Specialty Start Date End Date Services, [facility] [address] [place], [place] PCP - General Family Medicine 05/07/24 documented as of this encounter
--- OUTSIDE RECORDS SUMMARY | 2024-11-25 09:09 | XMS_ITS | Encounter Summary ---
Author Organization [facility] Address [id number] [address] [place] [address] Care Team Providers Care Tariff Compiling Clerk Name Role Phone Services, [facility] Primary Care Provider Reason for Visit * Reason Comments Med Refill Encounter Details Date Type Department Care Team ([facility] st Contact Info) Description 07/09/2022 Refill [facility] [address] [place] [address] Beatriz Ash, PLACEMENT COORDINATOR-[facility] [address] [place], [place] [phone] Social History Tobacco Use Types Packs/Day Years [...] [address] [place] [address] Nishi Graham, PLACEMENT COORDINATOR-MED SPEC [address] [place] [address] documented as of this encounter Visit Diagnoses [...] documented as of this encounter Care Teams Tariff Compiling Clerk Relationship Specialty Start Date End Date Services, [facility] [address] [place], [place] PCP - General Family Medicine 05/07/24 documented as of this encounter
--- OUTSIDE RECORDS SUMMARY | 2024-11-25 09:09 | XMS_ITS | Encounter Summary ---
Author Organization [facility] [employer] Sys tem Address [facility] [id number] [address] [place] [address] Care Team Providers Care Golf Course Assistant Name Role Phone Services, [facility] Primary Care Provider Encounter Details Date Type Department Care Team ([facility] st Contact Info) Description 08/04/2021 Orders Only [facility] [address] [place] [address] Beatriz Ash, ELECTROSTATIC POWDER COATING TECHNICIAN-FIELD REPRESENTATIVE [address] [place] [address] Social History Tobacco Use Types Packs/Day Years [...] [address] [place] [address] Nishi Graham, ELECTROSTATIC POWDER COATING TECHNICIAN-FIELD REPRESENTATIVE [address] [place] [address] documented as of this encounter Visit Diagnoses [...] documented as of this encounter Care Teams Golf Course Assistant Relationship Specialty Start Date End Date Services, [facility] [address] [place], [place] PCP - General Family Medicine 05/07/24 documented as of this encounter
--- OUTSIDE RECORDS SUMMARY | 2024-11-25 09:09 | XMS_ITS | Encounter Summary ---
Author Organization [facility] [employer] Sys tem Address [facility] [id number] [address] [place] [address] Care Team Providers Care Driver Service Technician Name Role Phone Services, [facility] Primary Care Provider Encounter Details Date Type Department Care Team ([facility] Contact Info) Description 06/10/2022 Orders Only [facility] [address] [place] [address] Beatriz Ash, CATTLE AND WHEAT FARMER-BELT BUILDER HELPER [address] [place] [address] Social History Tobacco Use Types Packs/Day Years [...] ([facility] Contact Info) Description 12/10/2024 12:30 PM EDT Office Visit [facility] [address] [place] [address] Nishi Graham, CATTLE AND WHEAT FARMER-BELT BUILDER HELPER [address] [place] [address] documented as of this encounter Visit Diagnoses [...] documented as of this encounter Care Teams Driver Service Technician Relationship Specialty Start Date End Date Services, [facility] [address] [place], [place] PCP - General Family Medicine 05/07/24 documented as of this encounter
--- OUTSIDE RECORDS SUMMARY | 2024-11-25 09:09 | XMS_ITS | Encounter Summary ---
Author Organization [facility] tem Address [facility]-[id number] [address] [place] [address] Care Team Providers Care Manager Welding Name Role Phone Services, [facility] Primary Care Provider Reason for Visit * Reason Comments Med Refill Encounter Details Date Type Department Care Team ([facility] st Contact Info) Description 05/28/2022 Refill [facility] [address] [place] [address] Mao San PA [address] [place], [place] [phone] Spondylosis of cervical region without myelopathy or [...] [address] [place] [address] Nishi Graham, CAR WASH SUPERVISOR-INSTITUTIONAL RESEARCH DIRECTOR [address] [place] [address] documented as of this encounter Visit Diagnoses [...] as of this encounter Care Teams Manager Welding Relationship Specialty Start Date End Date Services, [facility] [address] [place], [place] PCP - General Family Medicine 05/07/24 documented as of this encounter
--- OUTSIDE RECORDS SUMMARY | 2024-11-25 09:09 | XMS_ITS | Encounter Summary ---
Author Organization [facility] Address [facility] [place][id number] [address] [place] [address] Care Team Providers Care Transition Program Manager Name Role Phone Services, [facility] Primary Care Provider Reason for Visit * Reason Comments Med Refill Encounter Details Date Type Department Care Team ([facility] st Contact Info) Description 07/15/2021 Refill [facility] [address] [place] [address] Igor Holliday MD [address] Provider retired 05/14/24 [place] [address] Social History Tobacco Use Types Packs/Day Years [...] [address] [place] [address] Nishi Graham, PURIFICATION OPERATOR HELPER-HARDWARE DEVELOPER [address] [place] [address] documented as of this encounter Visit Diagnoses [...] documented as of this encounter Care Teams Transition Program Manager Relationship Specialty Start Date End Date Services, [facility] [address] [place], [place] PCP - General Family Medicine 05/07/24 documented as of this encounter
--- OUTSIDE RECORDS SUMMARY | 2024-11-25 09:09 | XMS_ITS | Encounter Summary ---
Author Organization [facility] Address [id number] [address] [place] [address] Care Team Providers Care Methods Specialist Name Role Phone Services, [facility] Primary Care Provider Reason for Visit * Reason Comments Med Refill Encounter Details Date Type Department Care Team ([facility] st Contact Info) Description 10/31/2022 Refill [facility] [address] [place] [address] Mao San PA [address]nd [address] [place], [place] [phone] Spondylosis of cervical region without myelopathy or [...] requests. The patient must contact our office. [phone] documented in this encounter Plan of Treatment Upcoming Encounters Date Type Department Care Team (Late st Contact Info) Description 12/10/2024 12:30 PM EDT Office Visit [facility] [address] [place] [address] Nishi Graham, SPOOLER-INSULATION BATTING MACHINE OPERATOR [address] [place] [phone] documented as of this encounter Visit Diagnoses [...] documented as of this encounter Care Teams Methods Specialist Relationship Specialty Start Date End Date Services, [facility] [address] [place], [place] PCP - General Family Medicine 05/07/24 documented as of this encounter
--- OUTSIDE RECORDS SUMMARY | 2024-11-25 09:09 | XMS_ITS | Encounter Summary ---
Author Organization [facility] Address [facility][id number] [address] [place] [address] Care Team Providers Care Director Of Outreach Name Role Phone Services, [facility] Primary Care Provider Reason for Visit * Reason Comments Med Refill Encounter Details Date Type Department Care Team ([facility] st Contact Info) Description 11/27/2022 Refill [facility] [address] [place] [address] Mao San PA [address] [place], [place] [address] Spondylosis of cervical region without myelopathy or [...] requests. The patient must contact our office. [phone] documented in this encounter Plan of Treatment Upcoming Encounters Date Type Department Care Team (Late st Contact Info) Description 12/10/2024 12:30 PM EDT Office Visit [facility] [address] [place] [address] Nishi Graham, TYPE ROLLING MACHINE OPERATOR-DATA CONVERSION OPERATOR [address] [place] [phone] documented as of this encounter Visit Diagnoses [...] documented as of this encounter Care Teams Director Of Outreach Relationship Specialty Start Date End Date Services, [facility] [address] [place], [place] PCP - General Family Medicine 05/07/24 documented as of this encounter
--- OUTSIDE RECORDS SUMMARY | 2024-11-25 09:10 | XMS_ITS | Encounter Summary ---
Author Organization [facility] [employer] [facility] Address [facility] [place][id number] [address] [place] [address] Care Team Providers Care [employer] Technical Lead Senior Developer Name Role Phone Services, [facility] Primary Care Provider Encounter Details Date Type Department Care Team ([facility] st Contact Info) Description 07/09/2020 [facility] [address] [place] [address] Jayson Ríos CNA Social History [...] [address] [place] [address] Nishi Graham, RPG PROGRAMMER-ELECTRON BEAM PHOTO MASK MAKER [address] [place] [address] documented as of this encounter [...] documented as of this encounter Care Teams [employer] Technical Lead Senior Developer Relationship Specialty Start Date End Date Services, [facility] [address] [place], [place] PCP - General Family Medicine 05/07/24 documented as of this encounter
--- OUTSIDE RECORDS SUMMARY | 2024-11-25 09:10 | XMS_ITS | Encounter Summary ---
Author Organization [facility] Blurb Sys tem Address [facility]-[id number] [address] [place] [address] Care Team Providers Care Gold Beater Name Role Phone Services, [facility] Primary Care Provider Encounter Details Date Type Department Care Team ([facility] st Contact Info) Description 05/13/2020 Orders Only [facility] [address] [place] [address] Beatriz Ash, MANAGEMENT EXPERT-GENERAL FOREMAN [address] [place] [address] Social History Tobacco Use Types Packs/Day Years [...] [address] [place] [address] Nishi Graham, MANAGEMENT EXPERT-GENERAL FOREMAN [address] [place] [address] documented as of this encounter Visit Diagnoses Not on filedocumented in this encounter Additional Health Concerns Infection Onset Date Last Indicated Resolved Time Enteric Rule-Out 09/16/2024 09/16/2024 09/16/2024 11:28 PM EDT documented as of this encounter Care Teams Gold Beater Relationship Specialty Start Date End Date Services, [facility] [address] [place], [place] PCP - General Family Medicine 05/07/24 documented as of this encounter
--- OUTSIDE RECORDS SUMMARY | 2024-11-25 09:10 | XMS_ITS | Encounter Summary ---
Author Organization [facility] tem Address [facility] [place][id number] [address] [place] [address] Care Team Providers Care Inventory Transcriber Name Role Phone Services, [facility] Primary Care Provider Reason for Visit * Reason Onset Date Comments Med Refill 02/26/2019 Encounter Details Date Type Department Care Team ([facility] Contact Info) Description 02/26/2019 Refill [facility] [address] [place] [address] Ceci Day, DONTE Spondylosis of [...] Department Care Team (Late Contact Info) Description 12/10/2024 12:30 PM EDT Office Visit [facility] [address] [facility] 1 [place] [address] Nishi Graham, STEEL WOOL MACHINE OPERATOR-COIN DEALER [address] [place] [address] documented as of this encounter Visit Diagnoses Diagnosis Spondylosis of cervical region without myelopathy or radiculopathy documented in this encounter Additional Health Concerns Infection Onset Date Last Indicated Resolved Time COVID-19 Positive 09/03/2019 09/03/2019 09/24/2019 11:12 PM EDT Enteric Rule-Out 09/16/2024 09/16/2024 09/16/2024 11:28 PM EDT documented as of this encounter Care Teams Inventory Transcriber Relationship Specialty Start Date End Date Services, [facility] [address] [place], [place] PCP - General Family Medicine 05/07/24 documented as of this encounter
--- OUTSIDE RECORDS SUMMARY | 2024-11-25 09:10 | XMS_ITS | Encounter Summary ---
Author Organization [employer] Sys tem Address [id number] [address] [place] [address] Care Team Providers Care Video Games Mechanic Name Role Phone Services, [facility] Primary Care Provider Reason for Visit * Reason Onset Date Comments Med Refill 08/31/2020 Encounter Details Date Type Department Care Team ([facility] Contact Info) Description 08/31/2020 Refill [facility] [address] [place] [address] Deepti Alvares LPN Social History [...] Upcoming Encounters Date Type Department Care Team ([facility] Contact Info) Description 12/10/2024 12:30 PM EDT Office Visit [facility] [address] [place] [address] Nishi Graham, FLAG SIGNALER-HOUSEKEEPER MANAGER [address] [place] [address] documented as of this encounter Visit Diagnoses [...] documented as of this encounter Care Teams Video Games Mechanic Relationship Specialty Start Date End Date Services, [facility] [address] [place] PCP - General Family Medicine 05/07/24 documented as of this encounter
--- OUTSIDE RECORDS SUMMARY | 2024-11-25 09:10 | XMS_ITS | Encounter Summary ---
Author Organization [facility] Address [facility]-[id number] [address] [place] [address] Care Team Providers Care Quality Liaison Name Role Phone Services, [facility] Primary Care Provider Encounter Details Date Type Department Care Team ([facility] st Contact Info) Description 01/16/2024 Telephone [facility] [address] [place] [phone] Jalyn Bernal CMA Social History Tobacco Use [...] [address] [place] [address] Nishi Graham, FUNCTIONAL TESTER TYPEWRITERS-ROUTER OPERATOR [address] [place] [address] documented as of this encounter Visit Diagnoses [...] documented as of this encounter Care Teams Quality Liaison Relationship Specialty Start Date End Date Services, [facility] [address] [place], [place] PCP - General Family Medicine 05/07/24 documented as of this encounter
--- OUTSIDE RECORDS SUMMARY | 2024-11-25 09:10 | XMS_ITS | Encounter Summary ---
Author Organization [facility] eigital [facility] tem Address [facility]-[id number] [address] [place] [address] Care Team Providers Care Management Engineer Name Role Phone Services, [facility] Primary Care Provider Encounter Details Date Type Department Care Team ([facility] st Contact Info) Description 10/14/2020 Telephone [facility] [address] [place] [address] Beatriz Ash, METAL FABRICATOR HELPER-DATABASE PROGRAMMER [address] [place] [address] Social History Tobacco Use Types Packs/Day Years [...] you can send some [facility] to [facility] [place] for her Also, how long should I [...] [address] [place] [address] Nishi Graham, MIKAELA-DATABASE PROGRAMMER [address] [place] [address] documented as of this encounter [...] documented as of this encounter Care Teams Management Engineer Relationship Specialty Start Date End Date Services, [facility] [address] [place], [place] PCP - General Family Medicine 05/07/24 documented as of this encounter
--- OUTSIDE RECORDS SUMMARY | 2024-11-25 09:10 | XMS_ITS | Encounter Summary ---
Author Organization [facility] Sc[employer] Prevention [facility] tem Address [facility] [place][id number] [address] 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 [...] [address] [place] [address] Nishi Graham, MACHINE ADJUSTER LEADER CASE TRIM-INDUSTRIAL TRAINER [address] [place] [address] documented as of this encounter Visit Diagnoses Diagnosis Spondylosis of cervical region without myelopathy or radiculopathy documented in this encounter Additional Health Concerns Infection Onset Date Last Indicated Resolved Time COVID-19 Positive 09/03/2019 09/03/2019 09/24/2019 11:12 PM EDT Enteric Rule-Out 09/16/2024 09/16/2024 09/16/2024 11:28 PM EDT documented as of this encounter Care Teams Pulmonology Physician Relationship Specialty Start Date End Date Services, [facility] [address] [place], [place] PCP - General Family Medicine 05/07/24 documented as of this encounter
--- OUTSIDE RECORDS SUMMARY | 2024-11-25 09:10 | XMS_ITS | Encounter Summary ---
Author Organization [facility] [employer] [facility] tem Address [facility][id number] [address] [place] [address] Care Team Providers Care Sheepskin Pickler Name Role Phone Services, [facility] Primary Care Provider Reason for Visit * Reason Comments Med Refill Encounter Details Date Type Department Care Team ([facility] st Contact Info) Description 09/04/2024 Refill [facility] [address] [place] [address] Teagan Carrillo PA-C [address] [place] [address] Med Refill Social History Tobacco Use Types Packs/Day Years Used Date Smoking Tobacco: Every Day Cigarettes Smokeless Tobacco: Never Comments:Patient states she drinks a lot. Alcohol Use Standard Drinks/Week Comments Yes 0 (1 standard drink = 0.6 oz pur e alcohol) [facility] Utilities Answer Date Recorded In the past 12 months has [employer], oil, or water Musations threatened to shut off services in your [...] [address] [place] [address] Nishi Graham, VICE PRESIDENT PAYER-TEST DRIVER [address] [place] [address] documented as of this encounter [...] documented as of this encounter Care Teams Sheepskin Pickler Relationship Specialty Start Date End Date Services, [facility] [address] [place], [place] PCP - General Family Medicine 05/07/24 documented as of this encounter
--- OUTSIDE RECORDS SUMMARY | 2024-11-25 09:10 | XMS_ITS | Encounter Summary ---
Author Organization [facility] tem Address [facility]-[id number] [address] [place] [address] Care Team Providers Care Chief Of Vital Statistics Name Role Phone Services, [facility] Primary Care Provider Reason for Visit * Reason Comments Med Refill Encounter Details Date Type Department Care Team ([facility] Contact Info) Description 09/09/2020 Refill [facility] [address] [place] [address] Igor Holliday MD [address] Provider retired 05/14/24 [place] [address] Social History Tobacco Use Types Packs/Day Years [...] Upcoming Encounters Date Type Department Care Team ([facility] Contact Info) Description 12/10/2024 12:30 PM EDT Office Visit [facility] [address] [place] [address] Nishi Graham, HELPER MARBLE FINISHER-COMMUNITY RELATIONS POLICE LIEUTENANT [address] [place] [address] documented as of this encounter Visit Diagnoses [...] as of this encounter Care Teams Chief Of Vital Statistics Relationship Specialty Start Date End Date Services, [facility] [address] [place], [place] PCP - General Family Medicine 05/07/24 documented as of this encounter
--- OUTSIDE RECORDS SUMMARY | 2024-11-25 09:10 | XMS_ITS | Encounter Summary ---
Author Organization [facility] tem Address [facility] [place][id number] [address] 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 [...] [address] [place] [address] Nishi Graham, NEEDLE PUNCH MACHINE OPERATOR HELPER-PRODUCTION STAFF WORKER [address] [place] [address] documented as of this encounter Visit Diagnoses Diagnosis Spondylosis of cervical region without myelopathy or radiculopathy documented in this encounter Additional Health Concerns Infection Onset Date Last Indicated Resolved Time COVID-19 Positive 09/03/2019 09/03/2019 09/24/2019 11:12 PM EDT Enteric Rule-Out 09/16/2024 09/16/2024 09/16/2024 11:28 PM EDT documented as of this encounter Care Teams Manager Health Relationship Specialty Start Date End Date Services, [facility] [address] [place], [place] PCP - General Family Medicine 05/07/24 documented as of this encounter
--- OUTSIDE RECORDS SUMMARY | 2024-11-25 09:11 | XMS_ITS | Encounter Summary ---
Author Organization [facility] tem Address [facility]-[id number] [address] [place] [address] Care Team Providers Care House Nurse Name Role Phone Services, [facility] Primary Care Provider Reason for Visit * Reason Comments Med Refill Encounter Details Date Type Department Care Team ([facility] st Contact Info) Description 03/12/[address] 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 The patient must contact our office. [phone] documented in this encounter Plan of Treatment Upcoming Encounters Date Type Department Care Team (Late st Contact Info) Description 12/10/2024 12:30 PM EDT Office Visit [facility] [address] [place] [address] Nishi Graham, ROUTE CLERK-ASSISTANT ACCOUNT MANAGER [address] [place] [address] documented as of this encounter Visit Diagnoses Diagnosis Spondylosis of cervical region without myelopathy or radiculopathy documented in this encounter Additional Health Concerns Infection Onset Date Last Indicated Resolved Time Enteric Rule-Out 09/16/2024 09/16/2024 09/16/2024 11:28 PM EDT documented as of this encounter Care Teams House Nurse Relationship Specialty Start Date End Date Services, [facility] [address] [place], [place] PCP - General Family Medicine 05/07/24 documented as of this encounter
--- OUTSIDE RECORDS SUMMARY | 2024-11-25 09:11 | XMS_ITS | Encounter Summary ---
Author Organization [facility] tem Address [facility][id number] [address] [place] [address] Care Team Providers Care Bond Analyst Name Role Phone Services, [facility] Primary Care Provider Reason for Visit * Reason Onset Date Comments Med Refill 05/15/2019 Encounter Details Date Type Department Care Team (Late st Contact Info) Description 05/15/2019 Refill [facility] [address] [place] [phone] Naida Bahena RN Spondylosis of cervical region [...] appropriate: Yes Last UDS: NA Pharmacy: [facility] Pascal Emrich, RN 05/15/19 1307 documented in this encounter Plan of Treatment Upcoming Encounters Date Type Department Care Team (Late st Contact Info) Description 12/10/2024 12:30 PM EDT Office Visit [facility] [address] [place] [address] Nishi Graham, WHEELCHAIR VAN OPERATOR FIRST RESPONDER-WATERWORKS CHIEF ENGINEER [address] [place] [address] documented as of this encounter Visit Diagnoses Diagnosis Spondylosis of cervical region without myelopathy or radiculopathy documented in this encounter Additional Health Concerns Infection Onset Date Last Indicated Resolved Time COVID-19 Positive 09/03/2019 09/03/2019 09/24/2019 11:12 PM EDT Enteric Rule-Out 09/16/2024 09/16/2024 09/16/2024 11:28 PM EDT documented as of this encounter Care Teams Bond Analyst Relationship Specialty Start Date End Date Services, [facility] [address] [place], [place] PCP - General Family Medicine 05/07/24 documented as of this encounter
--- OUTSIDE RECORDS SUMMARY | 2024-11-25 09:11 | XMS_ITS | Encounter Summary ---
Author Organization [facility] tem Address [facility] [place]-[id number] [address] [place] [address] Care Team Providers Care Keyboard Operator Name Role Phone Services, [facility] Primary Care Provider Reason for Visit * Reason Comments Med Refill Encounter Details Date Type Department Care Team ([facility] st Contact Info) Description 11/17/2020 Refill [facility] [address] [place] [address] Beatriz Ash, INDUCTION MACHINE OPERATOR-[facility] [address] [place], [place] [phone] Social History Tobacco Use Types Packs/Day Years [...] [address] [place] [address] Nishi Graham, INDUCTION MACHINE OPERATOR-BUILD AND DEPLOYMENT ENGINEER [address] [place] [address] documented as of this encounter [...] documented as of this encounter Care Teams Keyboard Operator Relationship Specialty Start Date End Date Services, [facility] [address] [place], [place] PCP - General Family Medicine 05/07/24 documented as of this encounter
--- OUTSIDE RECORDS SUMMARY | 2024-11-25 09:11 | XMS_ITS | Encounter Summary ---
Author Organization [facility] [employer] [facility] tem Address [facility][id number] [address] [place] [address] Care Team Providers Care Roll Coating Machine Operator Name Role Phone Services, [facility] Primary Care Provider Reason for Visit * Reason Onset Date Comments Med Refill 03/11/2021 Encounter Details Date Type Department Care Team (Late st Contact Info) Description 03/11/2021 Refill [facility] [address] [place] [address] Orquidea Cloud, MINER Social History Tobacco Use Types Packs/Day Years [...] [address] [place] [address] Nishi Graham, FREEZER TUNNEL OPERATOR-LAMINATION MACHINE OPERATOR [address] [place] [address] documented as of this encounter [...] documented as of this encounter Care Teams Roll Coating Machine Operator Relationship Specialty Start Date End Date [facility], [facility], [facility] [address] [place], [place] PCP - General Family Medicine 05/07/24 documented as of this encounter
--- OUTSIDE RECORDS SUMMARY | 2024-11-25 09:11 | XMS_ITS | Encounter Summary ---
Author Organization [facility] [employer] [facility] tem Address [facility]-[id number] [address] [place] [address] Care Team Providers Care Exterior Door Installer Name Role Phone Services, [facility] Primary Care Provider Reason for Visit * Reason Onset Date Comments Med Refill 07/29/2019 Encounter Details Date Type Department Care Team (Late st Contact Info) Description 07/29/2019 Refill [facility] [address] [place] [address] Naida Bahena RN Spondylosis of cervical region [...] 02/28/19 Next OV: not scheduled, No Show 6 procedure and follow up OARRS appropriate: Yes Last UDS: NA Pharmacy: [facility] Left message on patient's voicemail that she needs an appointment. Naida Bahena RN 07/29/19 1242 documented in this encounter Plan of Treatment Upcoming Encounters Date Type Department Care Team (Late st Contact Info) Description 12/10/2024 12:30 PM EDT Office Visit [facility] [address] [place] [address] Nishi Graham, CHARGE PREPARATION TECHNICIAN-EVAPORATOR OPERATOR MOLASSES [address] [place] [address] documented as of this encounter Visit Diagnoses Diagnosis Spondylosis of cervical region without myelopathy or radiculopathy documented in this encounter Additional Health Concerns Infection Onset Date Last Indicated Resolved Time COVID-19 Positive 09/03/2019 09/03/2019 09/24/2019 11:12 PM EDT Enteric Rule-Out 09/16/2024 09/16/2024 09/16/2024 11:28 PM EDT documented as of this encounter Care Teams Exterior Door Installer Relationship Specialty Start Date End Date Services, [facility] [address] [place], [place] PCP - General Family Medicine 05/07/24 documented as of this encounter
--- OUTSIDE RECORDS SUMMARY | 2024-11-25 09:11 | XMS_ITS | Encounter Summary ---
Author Organization [facility] [employer] Sys tem Address [facility]-[id number] [address] [place] [address] Care Team Providers Care Plate Setter Name Role Phone Services, [facility] Primary Care Provider Encounter Details Date Type Department Care Team ([facility] st Contact Info) Description 03/04/2021 Orders Only [facility] [address] [place] [address] Beatriz Ash, DIRECTOR OF IN SERVICE EDUCATION-DIRECTOR OF SAFETY AND SECURITY [address] [place] [address] Social History Tobacco Use Types Packs/Day Years [...] [address] [place] [phone] Nishi Graham, DIRECTOR OF IN SERVICE EDUCATION-DIRECTOR OF SAFETY AND SECURITY [address] [place] [address] documented as of this encounter Visit Diagnoses [...] documented as of this encounter Care Teams Plate Setter Relationship Specialty Start Date End Date Services, [facility] [address] [place], [place] PCP - General Family Medicine 05/07/24 documented as of this encounter
--- OUTSIDE RECORDS SUMMARY | 2024-11-25 09:11 | XMS_ITS | Encounter Summary ---
Author Organization [facility] tem Address [facility]-[id number] [address] 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 [...] [address] [place] [address] Nishi Graham, DRUMS TEACHER-CYLINDER VALVE REPAIRER [address] [place] [address] documented as of this encounter Visit Diagnoses Diagnosis Spondylosis of cervical region without myelopathy or radiculopathy documented in this encounter Additional Health Concerns Infection Onset Date Last Indicated Resolved Time COVID-19 Positive 09/03/2019 09/03/2019 09/24/2019 11:12 PM EDT Enteric Rule-Out 09/16/2024 09/16/2024 09/16/2024 11:28 PM EDT documented as of this encounter Care Teams Forming Machine Upkeep Mechanic Relationship Specialty Start Date End Date Services, [facility] [address] [place], [place] PCP - General Family Medicine 05/07/24 documented as of this encounter
--- OUTSIDE RECORDS SUMMARY | 2024-11-25 09:11 | XMS_ITS | Clinical Summary ---
Author Organization [employer] s tem Address [id number] [address] [place] [address] Care Team Providers Care Receiver Name Role Phone Services, [facility] Primary Care Provider Allergies Active Allergy Reactions [...] tablet (10 mg total) before bedtime. 05/18/2024 Active folic acid (FOLVITE) 1 mg tablet Take 1 tablet (1 mg total) by mouth in the morning. 05/18/2024 Active atorvastatin (LIPITOR) 80 mg tablet Take 1 tablet (80 mg total) by mouth nightly. 90 tablet 3 06/17/2024 Active dapagliflozin propanediol (FARXIGA) 10 mg tablet Take 1 tablet (10 mg total) by mouth in the morning for 360 days. 90 tablet 3 06/17/2024 06/13/19 26 Active spironolactone (ALDACTONE) 25 mg tablet Take 1 tablet (25 mg total) by mouth in the morning. 90 tablet 3 06/17/2024 Active valsartan (DIOVAN) 40 mg tablet Take 1 tablet (40 mg total) by mouth in the morning and 1 tablet (40 mg total) before bedtime. 90 tablet 3 06/17/2024 Active clopidogreL (PLAVIX) 75 mg tablet Take 1 tablet (75 mg total) by mouth in the morning. 30 tablet 1 09/19/2024 Active cyclobenzaprine (FLEXERIL) 10 mg tablet Take 1 tablet (10 mg total) by mouth once daily at bedtime. 09/18/2024 Active metoprolol succinate XL (TOPROL XL) 25 mg 24 hr tablet Take 0.5 tablets (12.5 mg total) by mouth in the morning. 10/26/2024 Active sucralfate (CARAFATE) 1 gram tablet Take 1 tablet (1 g total) by mouth 4 (four) times a day before meals and nightly. 10/25/2024 Active pantoprazole (PROTONIX) 40 mg EC tablet Take 1 tablet (40 mg total) by mouth in the morning. 10/25/2024 Active Active Problems Problem Noted Date Diagnosed Date Gallstone pancreatitis 10/17/2024 Moderate protein-calorie malnutrition 10/16/2024 Anemia of chronic disease 10/15/2024 Iron deficiency anemia 10/14/2024 Hypocalcemia 10/13/2024 ETOH abuse 10/12/2024 Smoker 10/12/2024 Acute pancreatitis, unspecif ied complication status, unspecified pancreatitis type 10/11/2024 Ischemic cardiomyopathy 10/07/2024 Sepsis 09/12/2024 Chronic systolic heart failure 06/17/2024 Mixed hyperlipidemia 05/11/2024 CHB (complete heart block) 05/07/2024 ST elevation myocardial infarction (STEMI) 05/07 Coronary artery disease invo lving menominee coronary artery of menominee heart 05/07/2024 Osteoarthritis of cervical spine 03/14/2018 Overview (03/14/2018): Added automatically from request for surgery [id number] Cervical spondylosis without myelopathy 11/04/19 18 HTN (hypertension) Encounters Date Type Department Care Team Description 10/21/2024 2:45 PM EDT Anesthesia Event [facility] - Surgery [address] [place] [address] Igor Blanco MD 10/11/2024 1:27 PM EDT - 10/25/2024 12:30 PM EDT Hospital Encounter [facility] - Acute Care [address] [place] [address] Ranjana Braun DO Asif, Muhamid M, MD Muhammad, Ruqiyya T, MD Acute pancreatitis, unspecified complication status, unspecified pancreatitis type (Primary Dx); Abnormal LFTs; Moderate protein-calorie malnutrition; Weakness generalized Discharge Disposition: Residential Facility-Medicare Cert 10/11/2024 Travel 10/07/2024 3:15 PM EDT Office Visit [facility] [address] [place] [address] Julianna Hdez MD Chronic systolic heart failure ([facility]) (Primary Dx); Ischemic cardiomyopathy; Mixed hyperlipidemia 10/07/2024 Travel 10/04/2024 Telephone [facility] [address] [place] [address] Arlin Rodriguez CMA 09/30/2024 Telephone [facility] [address] [place] [address] Cher Maciel, ENGINEERING PATTERNMAKER-BEVERAGE SERVER 09/13/2024 Telephone [facility] [address] [place] [address] Richi Smith RN orders 09/12/2024 9:16 PM EDT - 09/18/2024 6:15 PM EDT Hospital Encounter [facility] - 8 Med-Surg/Ortho [address] [place] [address] Kylie Link MD Pothireddy, Ravi P, MD Discharge Disposition: Home Health 09/12/2024 3:27 PM EDT - 09/12/2024 8:14 PM EDT Emergency [facility] - Emergency [address] [place] [address] Aiden Loredo DO EMILY (acute kidney injury) (Primary Dx); Sepsis, due to unspecified organism, unspecified whether acute organ dysfunction present ([facility]) Discharge Disposition: Another Hospital 09/12/2024 Travel 09/11/2024 Telephone [facility] [address] [place] [address] Angela Rendon, RN [employer] 09/04/2024 Refill [facility] [address] [place] [address] Teagan Carrillo PA-C Med Refill from Last 3 Months Immunizations Immunization Administration Dates Next Due Tdap 02/03/2020 Family History Medical History Relation Name Comments Heart disease Father Heart disease Mother Heart disease Son Relation Name Status Comments Father Mother Alive Son Social History Tobacco Use Types Packs/Day Years Used Date Smoking Tobacco: Every Day Cigarettes Smokeless Tobacco: Never Tobacco Cessation:Ready to Q uit: Not Asked; Counseling Given: Not Answered Comments:Patient states she drinks a lot. Alcohol Use Standard Drinks/Week Comments Yes 0 (1 standard drink = 0.6 oz pur e alcohol) [employer] Answer Date Recorded In the past 12 months has [employer], gas, oil, or water [employer] threatened to shut off services in your home? Patient unable to answer 10/12/2024 [employer] Answer Date Recorded Frequency of Alcohol [...] from getting medications? Patient unable to answer 10/12/2024 In the past 12 months, has l ack of transportation kept you from meetings, work, or from getting things needed for daily living? Patient unable to answer 10/12/2024 Housing Instability Answer Date Recorde d Are you worried or concerned that in the next two months you may not have stable housing that you own, rent or stay in as a part of a household? Patient unable to answer 10/12/2024 Childcare Answer Date Recorded Childcare Unknown 07/20/2018 Employment Answer Date Recorded Employment Unknown 07/20/2018 Hunger Screening Answer Date Recorded Within the past 12 months we worried whether our food would run out before we got money to buy more. Never True 10/15/2024 Within the past 12 months th e food we bought just didn't last and we didn't have money to get more. Never True 10/15/2024 Purpose - Life Answer Date Recorded Purpose and direction in life Unknown Comments No Sex and Gender Information Value Date Recorded Sex Assigned at Not on file Legal Sex Female 9:44 PM EDT Gender Identity Not on file Sexual Orientation Not on file Last Filed Vital Signs Vital Sign Reading Time Taken Comments Blood Pressure 100/86 10/25/2024 7:25 AM EDT Pulse 69 10/25/2024 7:25 AM EDT Temperature 36.4 C (97.5 F) 10/25/2024 7:25 AM EDT Respiratory Rate 18 10/25/2024 7:25 AM EDT Oxygen Saturation 98% 10/25/2024 7:25 AM EDT Inhaled Oxygen Concentration - - Weight 51.3 kg (113 lb 1.6 oz) 10/22/2024 5:00 A M EDT Height 152.4 cm (5') 10/17/2024 3:54 PM EDT Body Mass Index 22.09 10/17/2024 3:54 PM EDT Plan of Treatment Upcoming Encounters Date Type Department Care Team (Late st Contact Info) Description 12/10/2024 12:30 PM EDT Office Visit [facility] [address] [place] [phone] Nishi Graham, ENGINEERING PATTERNMAKER-BEVERAGE SERVER [address] [place] [phone] Health Maintenance Due Date Last Done Comments Tobacco Counseling 1962 Depression Screening 1974 Pap Smear 09/24/1983 Mammogram 2002 Zoster (Shingles) Vaccine (1 of 2) 2012 Influenza Vaccine 10/14/2024 Statin Use: Cardiovascular 06/17/2025 06/17/2024 Tobacco Screening 10/13/2025 10/13/2024 Adult BMI Screening 10/22/2025 10/22/2024 DTaP,Tdap and Td Vaccines (2 - Td or Tdap) 02/02/2030 02/03/2020 Goals Goal Patient Goal Type Associated Problems Recent Progress Patient-Stated? Author SNF verses LTC General Yes Yamilet Trejo RN Note: Evaluation of progress towards goal: Patient is unable to answer questions at this time r/t altered mental status. Patient at this time is unable to care for self and will most likely need SNF verses LTC. Daughter, Tonny told the nurse she was hoping for somewhere like [facility]. However, [facility] is assisted living facility. Patient will most likely require a higher level of care and more ADL care than what [facility] can provide. Medical Devices Implanted Type Area Medical Sales Representative Device Identifier Shelf Expiration Date Model / Serial / Lot System Cor Stnt 2.75mm X 48mm 144cm Synergy Xd Mnrl Sean Pltn - [id number] Implanted:Qty : 1 on 05/07/2024 by Gilberto Zepeda MD at [facility] Stent N/A: Arterial [employer] [id number] 09/25/2025 [id number] / / [id number] System Cor Stnt 2.25mm X 15mm 145cm Xience Skypnt Mtlnk Sean - [id number] Implanted:Qty : 1 on 05/09/2024 by Gilberto Zepeda MD at [facility] Stent N/A: Arterial KINNEY [id number] 02/26/2026 [id number] Procedures Procedure Name Priority Date/Time Associated Diagnosis Comments MAGNESIUM Routine 10/25/2024 5:45 AM EDT CBC WITH AUTO DIFFERENTIAL Routine 10/25/2024 5:45 AM EDT COMPREHENSIVE METABOLIC PANEL Routine 10/25/2024 5:45 AM EDT PHOSPHORUS Routine 10/24/2024 4:00 AM EDT CBC WITH AUTO DIFFERENTIAL Routine 10/24/2024 4:00 AM EDT MAGNESIUM Routine 10/24/2024 4:00 AM EDT COMPREHENSIVE METABOLIC PANEL Routine 10/24/2024 4:00 AM EDT OCCULT BLOOD X 1, STOOL Routine 10/24/19 5:34 PM EDT BEDSIDE GLUCOSE Routine 10/23/2024 6:30 AM EDT PHOSPHORUS Routine 10/23/2024 4:32 AM EDT CBC WITH AUTO DIFFERENTIAL Routine 10/23/2024 4:32 AM EDT MAGNESIUM Routine 10/23/2024 4:32 AM EDT COMPREHENSIVE METABOLIC PANEL Routine 10/23/2024 4:32 AM EDT BEDSIDE GLUCOSE Routine 10/22/2024 11:51 PM EDT HEMOGLOBIN AND HEMATOCRIT, BLOOD Routine 10/22/2024 6:34 PM EDT BEDSIDE GLUCOSE Routine 10/22/2024 4:30 PM EDT TRANSFUSE RED BLOOD CELLS Routine 10/22/2024 2:45 PM EDT BEDSIDE GLUCOSE Routine 10/22/2024 12:09 PM EDT PHOSPHORUS Routine 10/22/2024 5:01 AM EDT CBC WITH AUTO DIFFERENTIAL Routine 10/22/2024 5:01 AM EDT MAGNESIUM Routine 10/22/2024 5:01 AM EDT COMPREHENSIVE METABOLIC PANEL Routine 10/22/2024 5:01 AM EDT BEDSIDE GLUCOSE Routine 10/22/2024 4:52 AM EDT BEDSIDE GLUCOSE Routine 10/22/2024 12:42 AM EDT HEMOGLOBIN AND HEMATOCRIT, BLOOD Routine 10/21/2024 9:20 PM EDT BEDSIDE GLUCOSE Routine 10/21/2024 6:56 PM EDT TYPE AND SCREEN STAT 10/21/2024 3:46 PM EDT HEMOGLOBIN AND HEMATOCRIT, BLOOD Routine 10/21/2024 3:46 PM EDT CROSSMATCH RBC Routine 10/21/2024 3:30 PM EDT PHOSPHORUS Routine 10/21/2024 4:53 AM EDT CBC WITH AUTO DIFFERENTIAL Routine 10/21/2024 4:53 AM EDT MAGNESIUM Routine 10/21/2024 4:53 AM EDT COMPREHENSIVE METABOLIC PANEL Routine 10/21/2024 4:53 AM EDT BEDSIDE GLUCOSE Routine 10/20/2024 11:19 PM EDT BEDSIDE GLUCOSE Routine 10/20/2024 6:32 PM EDT IONIZED CALCIUM Routine 10/20/2024 4:34 PM EDT POTASSIUM Routine 10/20/2024 4:34 PM EDT MAGNESIUM Routine 10/20/2024 4:34 PM EDT HEMOGLOBIN AND HEMATOCRIT, BLOOD Routine 10/20/2024 4:34 PM EDT BEDSIDE GLUCOSE Routine 10/20/2024 12:51 PM EDT TRIGLYCERIDES Routine 10/20/2024 4:41 AM EDT PHOSPHORUS Routine 10/20/2024 4:41 AM EDT CBC WITH AUTO DIFFERENTIAL Routine 10/20/2024 4:41 AM EDT MAGNESIUM Routine 10/20/2024 4:41 AM EDT COMPREHENSIVE METABOLIC PANEL Routine 10/20/2024 4:41 AM EDT HEMOGLOBIN AND HEMATOCRIT, BLOOD Routine 10/19/2024 9:34 PM EDT BEDSIDE GLUCOSE Routine 10/19/2024 6:45 PM EDT MAGNESIUM Routine 10/19/2024 1:13 PM EDT HEMOGLOBIN AND HEMATOCRIT, BLOOD Routine 10/19/2024 1:13 PM EDT EXTRA TUBES PST TOP Routine 10/19/2024 1 :00 PM EDT EXTRA TUBES Routine 10/19/2024 1:00 PM EDT BEDSIDE GLUCOSE Routine 10/19/2024 12:45 PM EDT LIPASE Routine 10/19/2024 4:39 AM EDT PHOSPHORUS Routine 10/19/2024 4:39 AM EDT CBC WITH AUTO DIFFERENTIAL Routine 10/19/2024 4:39 AM EDT MAGNESIUM Routine 10/19/2024 4:39 AM EDT COMPREHENSIVE METABOLIC PANEL Routine 10/19/2024 4:39 AM EDT BEDSIDE GLUCOSE Routine 10/18/2024 9:57 PM EDT HEMOGLOBIN AND HEMATOCRIT, BLOOD Routine 10/18/2024 9:18 PM EDT BEDSIDE GLUCOSE Routine 10/18/2024 6:05 PM EDT MAGNESIUM Routine 10/18/2024 4:56 PM EDT HEMOGLOBIN AND HEMATOCRIT, BLOOD Routine 10/18/2024 1:06 PM EDT BEDSIDE GLUCOSE Routine 10/18/2024 12:10 PM EDT PHOSPHORUS Routine 10/18/2024 4:16 AM EDT CBC WITH AUTO DIFFERENTIAL Routine 10/18/2024 4:16 AM EDT MAGNESIUM Routine 10/18/2024 4:16 AM EDT COMPREHENSIVE METABOLIC PANEL Routine 10/18/2024 4:16 AM EDT BEDSIDE GLUCOSE Routine 10/17/2024 11:32 PM EDT HEMOGLOBIN AND HEMATOCRIT, BLOOD Routine 10/17/2024 6:41 PM EDT MAGNESIUM Routine 10/17/2024 6:41 PM EDT POTASSIUM Routine 10/17/2024 6:41 PM EDT BEDSIDE GLUCOSE Routine 10/17/2024 5:37 PM EDT EEG Routine 10/17/2024 5:06 PM EDT TRANSFUSE RED BLOOD CELLS Routine 10/17/2024 3:54 PM EDT HEMOGLOBIN AND HEMATOCRIT, BLOOD Routine 10/17/2024 12:48 PM EDT CBC WITH AUTO DIFFERENTIAL Routine 10/17/2024 5:57 AM EDT MAGNESIUM Routine 10/17/2024 5:57 AM EDT COMPREHENSIVE METABOLIC PANEL Routine 10/17/2024 5:57 AM EDT POTASSIUM Routine 10/16/2024 9:39 PM EDT HEMOGLOBIN AND HEMATOCRIT, BLOOD Routine 10/16/2024 9:39 PM EDT MR MRCP WITH MRI ABD WO CONT Routine 10/16/2024 3:45 PM EDT MR BRAIN WO CONT Routine 10/16/2024 2:46 PM EDT POTASSIUM Routine 10/16/2024 12:53 PM EDT OCCULT BLOOD X 1, STOOL Routine 10/17/19 11:27 AM EDT CROSSMATCH RBC Routine 10/16/2024 9:00 AM EDT TYPE AND SCREEN Routine 10/16/2024 8:49 AM EDT HEMOGLOBIN Routine 10/16/2024 8:49 AM EDT REPEATED ABORH Routine 10/16/2024 7:00 AM EDT PHOSPHORUS Routine 10/16/2024 5:10 AM EDT LIPASE Routine 10/16/2024 5:10 AM EDT CBC WITH AUTO DIFFERENTIAL Routine 10/16/2024 5:10 AM EDT MAGNESIUM Routine 10/16/2024 5:10 AM EDT COMPREHENSIVE METABOLIC PANEL Routine 10/16/2024 5:10 AM EDT POTASSIUM Routine 10/16/2024 1:32 AM EDT PHOSPHORUS Routine 10/16/2024 1:32 AM EDT ECHO COMPLETE WO CONTRAST Routine 10/15/2024 4:25 PM EDT IONIZED CALCIUM Routine 10/15/2024 4:00 PM EDT THIAMIN (VITAMIN B1), WB Routine 10/15/2024 1:20 PM EDT SODIUM Add-On 10/15/2024 12:34 PM EDT FOLATE Add-On 10/15/2024 12:34 PM EDT PHOSPHORUS Add-On 10/15/2024 12:34 PM EDT THYROID PROFILE INCLUDES TSH FT4 Add-On 10/15/2024 12:34 PM EDT US ABDOMEN LMTD Routine 10/15/2024 10:56 AM EDT VITAMIN B12 Add-On 10/15/2024 5:23 AM EDT LIPASE Routine 10/15/2024 5:23 AM EDT CBC WITH AUTO DIFFERENTIAL Routine 10/15/2024 5:23 AM EDT MAGNESIUM Routine 10/15/2024 5:23 AM EDT COMPREHENSIVE METABOLIC PANEL Routine 10/15/2024 5:23 AM EDT FERRITIN Routine 10/14/2024 10:39 PM EDT IRON AND TIBC Routine 10/14/2024 10:39 PM EDT AMMONIA Routine 10/14/2024 11:11 AM EDT POCT IONIZED CALCIUM Routine 10/14/2024 8:51 AM EDT EXTRA TUBES BLUE TOP Routine 10/14/2024 6:57 AM EDT HEPATITIS PANEL, ACUTE Routine 6:57 AM EDT PHOSPHORUS Add-On 10/14/2024 6:57 AM EDT EXTRA TUBES Routine 10/14/2024 6:57 AM EDT LIPASE Routine 10/14/2024 6:57 AM EDT CBC WITH AUTO DIFFERENTIAL Routine 10/14/2024 6:57 AM EDT MAGNESIUM Routine 10/14/2024 6:57 AM EDT COMPREHENSIVE METABOLIC PANEL Routine 10/14/2024 6:57 AM EDT POCT IONIZED CALCIUM Routine 10/13/2024 6:02 PM EDT IONIZED CALCIUM Routine 10/13/2024 7:58 AM EDT LIPASE Add-On 10/13/2024 5:27 AM EDT CBC WITH AUTO DIFFERENTIAL Routine 10/13/2024 5:27 AM EDT MAGNESIUM Routine 10/13/2024 5:27 AM EDT COMPREHENSIVE METABOLIC PANEL Routine 10/13/2024 5:27 AM EDT EXTRA TUBES BLUE TOP Routine 10/13/2024 5:26 AM EDT EXTRA TUBES Routine 10/13/2024 5:26 AM EDT CAPNOGRAPHY Routine 10/12/2024 1:21 PM EDT TROP I, HIGH SENSITIVITY 3 HOUR Routine 10/12/2024 10:01 AM EDT LACTATE W/ REFLEX Add-On 10/12/2024 10: 01 AM EDT LACTATE W/ REFLEX Routine 10/12/2024 8:1 9 AM EDT EXTRA TUBES BLUE TOP Routine 10/12/2024 5:30 AM EDT EXTRA TUBES Routine 10/12/2024 5:30 AM EDT CBC WITH AUTO DIFFERENTIAL Routine 10/12/2024 5:30 AM EDT MAGNESIUM Routine 10/12/2024 5:30 AM EDT COMPREHENSIVE METABOLIC PANEL Routine 10/12/2024 5:[address] BRAIN WO CONT STAT 10/11/2024 9:[address] ABDOMEN AND PELVIS W CONT STAT 10/11/2024 8:[address] CERVICAL SPINE WO CONT STAT 10/11/2024 8:24 PM EDT LACTATE STAT 10/11/2024 8:05 PM EDT POCT NURSING URINE MACROSCOPIC UA Routine 10/11/2024 5:40 PM EDT DRUG SCREEN, URINE STAT 10/11/2024 5: 30 PM EDT ER EXTRA URINE MARBLE STAT 10/11/2024 5:30 PM EDT ER EXTRA URINE CULTURE STAT 5:30 PM EDT ER EXTRA URINE STAT 10/11/2024 5:30 PM EDT EXTRA TUBES LAVENDER TOP ON ICE Routine 10/11/2024 4:15 PM EDT EXTRA TUBES Routine 10/11/2024 4:15 PM EDT TROP I, HIGH SENSITIVITY 1 HOUR STAT 10/11/2024 4:15 PM EDT LACTATE W/ REFLEX STAT 10/11/2024 4:1 5 PM EDT TROPONIN I, HIGH SENSITIVITY 0 HOUR STAT 10/11/2024 3:00 PM EDT LIPASE STAT 10/11/2024 3:00 PM EDT TROPONIN I, HIGH SENSITIVITY 0 HOUR STAT 10/11/2024 3:00 PM EDT MAGNESIUM STAT 10/11/2024 3:00 PM EDT COMPREHENSIVE METABOLIC PANEL STAT 10/11/2024 3:00 PM EDT CBC WITH AUTO DIFFERENTIAL STAT 10/11/2024 3:00 PM EDT ECG 12-LEAD STAT 10/11/2024 2:13 PM EDT PHOSPHORUS Routine 09/18/2024 4:51 AM EDT CBC [...] ANTIBODY IGG Routine 09/15/19 4:07 AM EDT KANG SCREEN W/ REFLEX [...] PM EDT ER EXTRA URINE CULTURE STAT 07/31/202 5 4:36 PM EDT ER EXTRA URINE STAT [...] Months Results * (ABNORMAL) CBC auto differential (10/25/2024 5:45 AM EDT) Only the most recent of22 resultswithin the time period is included. WBC 5.9 4 - 11 x10E9/L 10/25/2024 7:44 AM EDT [facility] RBC Count 3.34(L) 3.8 - 5.2 X10E12/L 10/25/2024 7:44 AM EDT [facility] Hemoglobin 9.6(L) 11.7 - 15.5 g/dL 10/25/2024 7:44 AM EDT [facility] Hematocrit 28.4(L) 35 - 47 % 10/25/2024 7:44 AM EDT [facility] MCV 85 80 - 100 fL 10/25/2024 7:44 AM EDT [facility] MCH 28.7 27 - 34 pg 10/25/2024 7:44 AM EDT [facility] MCHC 33.8 32 - 36 g/dL 10/25/2024 7:44 AM EDT [facility] RDW 20.6(H) 11.5 - 15 % 10/25/2024 7:44 AM EDT [facility] Platelet Count 250 150 - 450 X10E9/L 10/25/2024 7:44 AM EDT [facility] MPV 8.7 7 - 12 fL 10/25/2024 7:44 AM EDT [facility] Metamyelocytes % 1 % 10/26/19 25 7:44 AM EDT [facility] Comment:This is an appended report. These results have been appended to a previously preliminary verified report. Neutrophils % 50 % 10/25/2024 7:44 AM EDT [facility] Comment:This is an appended report. These results have been appended to a previously preliminary verified report. Lymphocytes % 36 % 10/25/2024 7:44 AM EDT [facility] Comment:This is an appended report. These results have been appended to a previously preliminary verified report. Monocytes % 9 % 10/25/2024 7:44 AM EDT [facility] Comment:This is an appended report. These results have been appended to a previously preliminary verified report. Eosinophils % 3 % 10/25/2024 7:44 AM EDT [facility] Comment:This is an appended report. These results have been appended to a previously preliminary verified report. Basophils % 3 % 10/25/2024 7:44 AM EDT [facility] Comment:This is an appended report. These results have been appended to a previously preliminary verified report. Neutrophils Absolute (M) 2.9 1.5 - 6.6 10*3/uL 10/25/2024 7:44 AM [facility] Comment:This is an appended report. These results have been appended to a previously preliminary verified report. Lymphocytes Absolute 2.1 1.0 - 3.5 10*3/uL 10/25/2024 7:44 AM EDT [facility] Comment:This is an appended report. These results have been appended to a previously preliminary verified report. Monocytes Absolute 0.5 0.0 - 0.9 10*3/uL 10/25/2024 7:44 AM EDT [facility] Comment:This is an appended report. These results have been appended to a previously preliminary verified report. Eosinophils Absolute 0.1 0.0 - 0.4 10*3/uL 10/25/2024 7:44 AM EDT [facility] Comment:This is an appended report. These results have been appended to a previously preliminary verified report. Basophils Absolute 0.1 0.0 - 0.2 10*3/uL 10/25/2024 7:44 AM T [facility] Comment:This is an appended report. These results have been appended to a previously preliminary verified report. Elliptocytes 1+ 10/25/2024 7:44 AM EDT [facility] Comment:This is an appended report. These results have been appended to a previously preliminary verified report. Differential Type MANUAL DIFFERENTIAL 10/25/2024 7:44 AM EDT [facility] Comment:This is an appended report. These results have been appended to a previously preliminary verified report. Blood Venous blood / Unknown 10/25/2024 5:45 AM EDT 10/25/2024 6:00 AM EDT Love Casey ENGINEERING PATTERNMAKER-BEVERAGE SERVER LAB BLOOD ORDERABLES Fi nal Result Performing Organization Address City/[facility] Co de Phone Number [facility] [address] [place] [phone], [place] * (ABNORMAL) Magnesium (10/25/2024 5:45 AM EDT) Only the most recent of27 resultswithin the time period is included. MAGNESIUM 1.7(L) 1.8 - 2.6 mg/dL 10/25/2024 6:18 AM EDT [facility] Blood Venous blood / Unknown 10/25/2024 5:45 AM EDT 10/25/2024 5:59 AM EDT Shashi Eric DO LAB BLOOD ORDERABLES Final Result Performing Organization Address City/[facility] Co de Phone Number [facility] [address] [place] [phone], [place] * (ABNORMAL) Comprehensive metabolic panel (10/25/2024 5:45 AM EDT) Only the most recent of22 resultswithin the time period is included. SODIUM 131(L) 134 - 146 mmol/L 10/25/2024 6:18 AM EDT [facility] POTASSIUM 3.8 3.5 - 5.0 mmol/L 10/25/2024 6:18 AM EDT [facility] CHLORIDE 102 98 - 109 mmol/L 10/25/2024 6:18 AM EDT [facility] CARBON DIOXIDE 24 22 - 32 mmol/L 10/25/2024 6:18 AM EDT [facility] ANION GAP 5 5 - 15 mmol/L 10/25/2024 6:18 AM EDT [facility] BLOOD UREA NITROGEN 9 5 - 27 mg/dL 10/25/2024 6:18 AM EDT [facility] CREATININE 0.58 0.40 - 1.00 mg/dL 10/25/2024 6:18 AM EDT [facility] Comment:METHOD TRACEABLE TO IDFL STANDARD GLUCOSE 128(H) 65 - 99 mg/dL 10/25/2024 6:18 AM EDT [facility] CALCIUM 7.9(L) 8.5 - 10.5 mg/dL 10/25/2024 6:18 AM EDT [facility] TOTAL PROTEIN 6.7 6.0 - 8.0 g/dL 10/25/2024 6:18 AM EDT [facility] ALBUMIN 2.4(L) 3.2 - 5.3 g/dL 10/25/2024 6:18 AM EDT [facility] ALKALINE PHOSPHATASE 144(H) 39 - 130 U/L 10/25/2024 6:18 AM EDT [facility] AST 74(H) <=41 U/L 10/25/2024 6:18 AM EDT [facility] ALT 120(H) <=31 U/L 10/25/2024 6:18 AM EDT [facility] BILIRUBIN,TOTAL 0.9 0.3 - 1.2 mg/dL 10/25/2024 6:18 AM EDT [facility] EGFR Non-Race Dependent >90 >=60 ml/min/1.7 3sq.m 10/25/2024 6:18 AM T [facility] Comment: eGFR not reported due to non-numeric value for Creatinine. Reported eGFR is based on the CKD-EPI 2020 equation that does not use a race coefficient. Blood Venous blood / Unknown 10/25/2024 5:45 AM EDT 10/25/2024 5:59 AM EDT [facility] [employer] [facility] [employer] PATTERNMAKER-BEVERAGE SERVER LAB BLOOD ORDERABLES Fi nal Result Performing Organization Address City/[facility]/ZIP Co de Phone Number [address] [place] [address], [place] * Phosphorus (10/24/2024 4:00 AM EDT) Only the most recent of16 resultswithin the time period is included. PHOSPHORUS 2.4 2.4 - 4.9 mg/dL 10/24/2024 6:47 AM EDT [facility] Blood Venous blood / Unknown Central Line / Unknown 10/24/2024 4:00 AM EDT 10/24/2024 5:21 AM EDT us Shashi Eric DO LAB BLOOD ORDERABLES Final Result Performing Organization Address City/[facility] Co de Phone Number [address] [place] [address], [place] * (ABNORMAL) Occult blood x 1, stool (10/23/2024 5:34 PM EDT) Only the most recent of2 resultswithin the time period is included. FECAL OCCULT BLOOD Positive(A ) Negative 10/23/2024 6:31 PM EDT [facility] Stool Feces / Unknown 10/23/2024 5 :34 PM EDT 10/23/2024 5:43 PM EDT us Mark Lopez ENGINEERING PATTERNMAKER-BEVERAGE SERVER BODY FLUIDS AND STOOLS O RDERABLES Final Result Performing Organization Address City/[facility] Co de Phone Number [address] [place] [address], [place] * Bedside Glucose *Place/Obtain serum glucose if >500 per glucometer. (10/23/2024 6:30 AM EDT) Only the most recent of17 resultswithin the time period is included. Bedside Glucose (POC) 90 65 - 99 mg/dL 10/23/2024 11:24 AM EDT [facility] arterial/capilla ry 10/23/2024 6:30 AM EDT 10/23/2024 11:24 AM EDT Carolina Mccarthy MD POINT OF CARE TEST ORDERABLES Final Result Performing Organization Address City/[facility] Co de Phone Number [address] [place] [address], * (ABNORMAL) Hemoglobin and hematocrit, blood (10/22/2024 6:34 PM EDT) Only the most recent of11 resultswithin the time period is included. Hemoglobin 8.7(L) 11.7 - 15.5 g/dL 10/22/2024 6:41 PM EDT [facility] Hematocrit 26.0(L) 35 - 47 % 10/22/2024 6:41 PM EDT [facility] Blood Venous blood / Unknown 10/22/2024 6:34 PM EDT 10/22/2024 6:39 PM EDT Loan Nesbitt MD LAB BLOOD ORDERABLES Final Result Performing Organization Address City/[facility]/ZIP Co de Phone Number [address] [place] [address], * Transfuse RBC:1 Unit (10/22/2024 5:26 PM EDT) Only the most recent of2 resultswithin the time period is included. us Mark Lopez ENGINEERING PATTERNMAKER-BEVERAGE SERVER BLOOD TRANSFUSION ORDERA BLES Final Result * Type and screen (Pre-op) (10/21/2024 3:46 PM EDT) Only the most recent of2 resultswithin the time period is included. ABO AB 10/21/2024 5:56 PM EDT [facility] RH Positive 10/21/2024 5:56 PM EDT [facility] Antibody Screen Negative 10/21/2024 5:56 PM EDT [facility] Blood Venous blood / Unknown 10/21/2024 3:46 PM EDT 10/21/2024 4:51 PM EDT Igor Blanco MD BLOOD BANK TEST ORDERABLES Ed ited Result - Final [address] [place] [address], [address] [place] [address], [place] * Crossmatch RBC:Number of Units: 1 (10/21/2024 3:30 PM EDT) Only the most recent of2 resultswithin the time period is included. [facility] Blood component type [id number] [facility] Unit number [id number] [facility] Unit ABO A [facility] Unit RH NEG [facility] Crossmatch Compatible [facility] Status of unit TRANSFUSED [facility] Expiration Date [id number] [facility] BB Type Barcode 0600 [facility] Blood Venous blood / Unknown 10/21/2024 3:30 PM EDT 10/21/2024 5:07 PM EDT us Mark Lopez ENGINEERING PATTERNMAKER-BEVERAGE SERVER BLOOD BANK PRODUCT ORDER ANN Edited Result - Final [address] [place] [address], [place] * Potassium (10/20/2024 4:34 PM EDT) Only the most recent of8 resultswithin the time period is included. [facility] POTASSIUM 3.8 3.5 - 5.0 mmol/L 10/20/2024 5:22 PM EDT [facility] Blood Venous blood / Unknown Central Line / Unknown 10/20/2024 4:34 PM EDT 10/20/2024 4:53 PM EDT us Love Casey ENGINEERING PATTERNMAKER-BEVERAGE SERVER LAB BLOOD ORDERABLES Fi nal Result [address] [place] [address], [place] * Ionized calcium (10/20/2024 4:34 PM EDT) Only the most recent of10 resultswithin the time period is included. IONIZED CALCIUM - ICAN 4.7 4.5 - 5.3 mg/dL 10/20/2024 5:02 PM EDT [facility] Blood Venous blood / Unknown Central Line / Unknown 10/20/2024 4:34 PM EDT 10/20/2024 4:53 PM EDT us Loan Nesbitt MD LAB BLOOD ORDERABLES Final Result [address] [place] [address], [place] * Triglycerides (10/20/2024 4:41 AM EDT) TRIGLYCERIDE 142 27 - 150 mg/dL 10/20/2024 9:19 AM EDT [facility] Blood Venous blood / Unknown 10/20/2024 4:41 AM EDT 10/20/2024 5:02 AM EDT us Shashi Eric DO LAB BLOOD ORDERABLES Final Result [facility] [address] [place] [address], [place] [phone] * PST TOP (10/19/2024 1:00 PM EDT) Only the most recent of3 resultswithin the time period is included. Extra Tube Auto Resulted 10/19/2024 2:01 PM EDT [facility] Blood Venous blood / Unknown 10/19/2024 1:00 PM EDT 10/19/2024 1:37 PM EDT Loan Nesbitt MD LAB BLOOD ORDERABLES Final Result Performing Organization Address City/[facility]/ZIP Co de Phone Number [address] [place] [address], * (ABNORMAL) Lipase (10/19/2024 4:39 AM EDT) Only the most recent of6 resultswithin the time period is included. LIPASE 64(H) 17 - 40 U/L 10/19/2024 6:48 AM EDT [facility] Blood Venous blood / Unknown 10/19/2024 4:39 AM EDT 10/19/2024 5:16 AM EDT Shashi Eric DO LAB BLOOD ORDERABLES Final Result Performing Organization Address City/[facility] Co de Phone Number [address] [place] [address], [place] * EEG (10/17/2024 5:06 PM EDT) Narrative MANUALLY TRANSCRIBED RESULTS - 10/18/2024 12:13 PM EDT Images from the original result were not included. [facility] VIDEO-EEG REPORT EEG Service Date: 10/17/24 Date of Report: 10/18/24 Duration of Study: 30 minutes History: Alie Lowe is a 64 y.o. female with a history of seizure-like activity who is undergoing an EEG to evaluate for seizures and underlying epileptiform activity. Centrally acting Medications: Buspirone, Lorazepam,Hydromorphone and metoprolol Level of Consciousness: Awake and drowsy Technical description: This EEG was acquired with electrodes placed according to the 10-20 electrode placement system. A single EKG channel was recorded for cardiac rhythm monitoring. Video was not recorded. Quality of recording was poor. Entire study was reviewed. EEG Report: Occipital dominant rhythm was seen as 7.5 Hz sinusoidal activity with amplitude of 20-40 V. This activity was symmetric, and reactive to eye closure. Most of the background was comprised of generalized, frontally dominant, 1-2 Hz polymorphic delta activity with amplitude of <50 V, admixed with lower amplitude faster rhythms. Focal slowing was not seen. Drowsiness was seen, with slowing of background and disappearance of eye blinks, but no clear sleep state was recorded. Activation Procedures: Photic stimulation and hyperventilation were performed, and did not elicit any abnormal responses. Interictal/Ictal epileptiform abnormalities: None Events: None EEG Classification: This EEG was obtained while awake and drowsy, and is abnormal due to: 1- Mild background slowing Clinical Correlation: This EEG recording is abnormal, indicative of mild diffuse encephalopathy. No epileptiform discharges or lateralizing signs were seen. Quality of EEG is affected by movement and dense EMG artifact - Subtle/minor abnormalities could have been missed due to poor quality. Adolfo Desouza MD Digital Analyst of Neurology [facility] us Loan Nesbitt MD NEUROLOGY ORDERABLES Final Result MANUALLY TRANSCRIBED RESULTS * MRCP with MRI abdomen without contrast (10/16/2024 3:45 PM EDT) Anatomical Region Laterality Modality Abdomen, Body, Body Covera N/A Magne tic Resonance 10/16/2024 4:05 PM EDT Narrative 10/16/2024 4:12 PM EDT MRI ABDOMEN AND MRCP WITHOUT CONTRAST HISTORY: Elevated LFTs, pancreatitis COMPARISON:Abdominal ultrasound 10/15/2024, CT abdomen/pelvis 10/11/2024 TECHNIQUE: Routine multiplanar multisequence MRI abdomen and MRCP was performed without contrast. 3D reformatted volume rendered and rotation maximum intensity projection images obtained and reviewed for evaluation of the pancreatic and biliary ductal system at the MR console under concurrent physician supervision. FINDINGS: Study significantly compromised by motion artifact. Small amount of free fluid in the pelvis and small amount of perihepatic fluid. Small right pleural effusion with adjacent atelectasis. The common bile duct is dilated measuring 1.0 cm. MRCP images are nondiagnostic to exclude stone due to motion artifact. There may be some subtle T2 hypointense material in the distal common bile duct (series 4, image 19), however a definitive stone is not seen. The pancreatic duct is not dilated. The gallbladder is distended. There is layering sludge in the gallbladder. No focal liver mass. There is inflammation and fluid adjacent to the pancreas. The kidneys, spleen, and adrenal glands are unremarkable. Visualized small and large bowel are not dilated. No enlarged abdominal lymph nodes. IMPRESSION: * Study compromised by motion artifact. * Dilated common bile duct measuring 1.0 cm with findings suspicious for some sludge in the distal CBD. A definitive stone is not seen in the CBD, however study is significantly compromised by motion artifact (particularly the MRCP images). * Distended gallbladder containing layering sludge. * Extensive peripancreatic inflammation/fluid related to known pancreatitis. Small amount of right perihepatic fluid and fluid in the pelvis as well. * Small right pleural effusion. Finalized by Tommy Michelle MD on 10/16/2024 4:12 PM Procedure Note Tommy Michelle MD - 10/16/2024 MRI ABDOMEN AND MRCP WITHOUT CONTRAST HISTORY: Elevated LFTs, pancreatitis COMPARISON:Abdominal ultrasound 10/15/2024, CT abdomen/pelvis 10/11/2024 TECHNIQUE: Routine multiplanar multisequence MRI abdomen and MRCP wasperformed without contrast. 3D reformatted volume rendered and rotationmaximum intensity projection images obtained and reviewed for evaluationof the pancreatic and biliary ductal system at the MR console underconcurrent physician supervision. FINDINGS: Study significantly compromised by motion artifact. Small amount of freefluid in the pelvis and small amount of perihepatic fluid. Small rightpleural effusion with adjacent atelectasis. The common bile duct isdilated measuring 1.0 cm. MRCP images are nondiagnostic to exclude stonedue to motion artifact. There may be some subtle T2 hypointense material in the distalcommon bile duct (series 4, image 19), however a definitive stone is notseen. The pancreatic duct is not dilated. The gallbladder is distended.There is layering sludge in the gallbladder. No focal liver mass. There is inflammation and fluid adjacent to the pancreas. The kidneys, spleen, andadrenal glands are unremarkable. Visualized small and large bowel are notdilated. No enlarged abdominal lymph nodes. IMPRESSION: * Study compromised by motion artifact. * Dilated common bile duct measuring 1.0 cm with findings suspicious forsome sludge in the distal CBD. A definitive stone is not seen in the CBD,however study is significantly compromised by motion artifact(particularly the MRCP images). * Distended gallbladder containing layering sludge. * Extensive peripancreatic inflammation/fluid related to knownpancreatitis. Small amount of right perihepatic fluid and fluid in thepelvis as well. * Small right pleural effusion. Finalized by Tommy Michelle MD on 10/16/2024 4:12 PM us Shashi Eric DO [facility] MRI ORDERABLES Final Re sult * MR brain without contrast (10/16/2024 2:46 PM EDT) Anatomical Region Laterality Modality Neuro, Head, Head and Neck, Neuro Covera N/A Magnetic Resonance 10/16/2024 2:49 PM EDT Narrative 10/16/2024 2:51 PM EDT HISTORY: A 64-year-old female with a history of the altered mental status. TECHNIQUE: Multiplanar and multisequence MRI examination of brain is performed without intravenous contrast administration. COMPARISON: Comparison is made with the CT scan of the brain of 10/11/2024. FINDINGS: Examination is compromised due to motion artifacts. Facet and technique was utilized. The ventricular system is normal in size and configuration. There is normal differentiation of alexandre and white matters. Diffusion-weighted study demonstrates no evidence of restricted diffusion to suggest acute or subacute age of infarction. There is no evidence of intracranial mass, hemorrhage or acute pathology. The cerebellum and brainstem are unremarkable. No mass effect, midline shift of the structures or extra-axial fluid collections are noted. The cavernous carotid and and basilar arteries are patent. Visualized paranasal sinuses are clear. IMPRESSION: * No evidence of restricted diffusion to suggest acute or subacute age of infarction. * No evidence of intracranial mass, focal signal abnormality or acute pathology. Finalized by Zenon Doss MD on 10/16/2024 2:51 PM Procedure Note Zenon Doss MD - 10/16/2024 HISTORY: A 64-year-old female with a history of the altered mentalstatus. TECHNIQUE: Multiplanar and multisequence MRI examination of brain isperformed without intravenous contrast administration. COMPARISON: Comparison is made with the CT scan of the brain of10/11/2024. FINDINGS: Examination is compromised due to motion artifacts. Facet andtechnique was utilized. The ventricular system is normal in size and configuration. There isnormal differentiation of alexandre and white matters. Diffusion-weighted study demonstrates no evidence of restricted diffusionto suggest acute or subacute age of infarction. There is no evidence of intracranial mass, hemorrhage or acutepathology. The cerebellum and brainstem are unremarkable. No mass effect, midline shift of the structures or extra-axial fluidcollections are noted. The cavernous carotid and and basilar arteries are patent. Visualized paranasal sinuses are clear. IMPRESSION: * No evidence of restricted diffusion to suggest acute or subacute age ofinfarction. * No evidence of intracranial mass, focal signal abnormality or acutepathology. Finalized by Zenon Doss MD on 10/16/2024 2:51 PM Kirti Burk APRN-BEVERAGE SERVER IMG MRI ORDERABLES Ann l Result * (ABNORMAL) Hemoglobin (10/16/2024 8:49 AM EDT) Hemoglobin 7.0(L) 11.7 - 15.5 g/dL 10/16/2024 9:03 AM EDT [facility] Blood Venous blood / Unknown Venipuncture / Unknown 10/16/2024 8:49 AM EDT 10/16/2024 8:52 AM EDT Rossy Landry ENGINEERING PATTERNMAKER-BEVERAGE SERVER LAB BLOOD ORDERAB LES Final Result [facility] [address] [place] [address], [place] * ABO Rh Repeat (10/16/2024 7:00 AM EDT) ABO AB 10/16/2024 1:09 PM EDT [facility] RH Positive 10/16/2024 1:09 PM EDT [facility] Blood Venous blood / Unknown Venipuncture / Unknown 10/16/2024 7:00 AM EDT 10/16/2024 12:08 PM EDT Loan Nesbitt MD BLOOD BANK TEST ORDERABLES Final Result [facility] [address] [place] [address], [place] [address] [place] [address], [place] * Echo complete W/O contrast (10/15/2024 4:25 PM EDT) LVOT stroke volume 75.40 ml XCELERA LV Systolic Volume 65.10 mL XCELERA EF 44 % XCELERA FS 23 28 - 44 % XCELERA LV Diastolic Volume 116.00 mL XCELERA LVIDd 5.30 3.72 - 5.16 cm XCELERA LVIDs 4.10 2.21 - 3.34 cm XCELERA IVS 0.60 0.6 - 1.1 cm XCELERA PW 1.20 0.6 - 1.1 cm XCELERA LVOT diameter 2.00 cm XCELERA TDI 8.81 cm/s XCELERA MV TDI E' (medial) 5.44 cm/s XCELERA LA Volume Index 32.0 mL/m2 XCELERA E/A ratio 1.17 XCELERA E wave deceleration time 123.00 msec XCELERA MV Peak E Jose Armando 96.70 cm/s XCELERA MV Peak A Jose Armando 82.50 cm/s XCELERA LA size 3.80 cm XCELERA Aortic root 3.00 cm XCELERA LA volume 45.40 cm3 XCELERA RV diastolic dimension (basal) 30.0 mm XCELERA RVID d 3.1 cm XCELERA TAPSE 2.04 cm XCELERA AV peak jose armando 153.00 cm/s XCELERA LVOT peak jose armando 1.07 m/s XCELERA AV VTI 30.20 cm XCELERA LVOT peak VTI 24.00 cm XCELERA AV mean gradient 5.00 mmHg XCELERA AV peak gradient 9.36 mmHg XCELERA AV valve area 2.50 XCELERA Valve area - Index 1.8 XCELERA MV pressure 1/2 time 36.00 ms XCELERA MV valve area p 1/2 method 6.11 cm2 XCELERA TR Peak Jose Armando 2.1 m/s XCELERA TR peak gradient 17.47 mmHg XCELERA PV mean gradient 2.00 mmHg XCELERA PV peak gradient 4.16 mmHg XCELERA LV ESV A2C 55.50 mL XCELERA LV ESV A4C 32.40 mL XCELERA LV RWT 2D 45.28 XCELERA Echo EF Estimated 44 % XCELERA AV Velocity Ratio 0.79 XCELERA Left Ventricle Mass 174.47075 [id number] 3 g XCELERA Interventricular Septum Diastolic Thickness by 2D 6 cm XCELERA RA area 10.3 cm2 XCELERA RV Peak Systolic Pressure 21 mmHg XCELERA ZLVIDS 3.25 XCELERA ZLVIDD 1.91 XCELERA Energy loss index 10.17 XCELERA Anatomical Region Laterality Modality Chest N/A Ultrasound Narrative 10/15/2024 5:41 PM EDT Left Ventricle: Left ventricle is mildly dilated. Systolic function is mildly to moderately decreased with an ejection fraction of 40-45%. The quantitative EF by 2D Rangel biplane is 44%. Right Ventricle: Right ventricular size appears normal. Systolic function is normal. Mitral Valve: There is mild to moderate regurgitation. There is no evidence of mitral valve stenosis. Pulmonic Valve: There is mild regurgitation. There is no evidence of pulmonic valve stenosis. Tricuspid Valve: There is trace to mild regurgitation. There is no evidence of tricuspid valve stenosis. Left Ventricle Left ventricle is mildly dilated. There is mild asymmetric increased wall thickness/hypertrophy. Systolic function is mildly to moderately decreased with an ejection fraction of 40-45%. The quantitative EF by 2D Rangel biplane is 44%. See wall score diagram for wall motion abnormalities. Grade I diastolic dysfunction (impaired relaxation) is present. Lateral E' is 8.81 cm/s. Medial E' is 5.44 cm/s. Right Ventricle Right ventricular size appears normal. The right ventricular basal diameter is 30.0 mm. Systolic function is normal. Normal tricuspid annular plane systolic excursion. Normal systolic excursion velocity by TDI (>9.5 cm/s). Left Atrium Left atrium volume index is normal. The left atrial volume index is 32.0 mL/m2. Right Atrium Right atrium is normal in size. The right atrial area is 10.3 cm2. IVC/SVC IVC is not well visualized. Mitral Valve The leaflets are mildly thickened. The mitral valve posterior leaflet is calcified and demonstrates restricted mobility. There is mild to moderate regurgitation. There is no evidence of mitral valve stenosis. Tricuspid Valve The tricuspid valve was not well visualized. Tricuspid valve appears to be normal. There is trace to mild regurgitation. There is no evidence of tricuspid valve stenosis. RVSP calculated at 21 mmHg. Aortic Valve The aortic valve is trileaflet. The leaflets are mildly thickened. There is no regurgitation or stenosis. Pulmonic Valve The pulmonic valve was not well visualized. The leaflets are mildly thickened. There is mild regurgitation. There is no evidence of pulmonic valve stenosis. The peak gradient is 4.16 mmHg. The mean gradient is 2.00 mmHg. Ascending Aorta The aortic root is normal in size. Pericardium The pericardium appears normal. Study Details A complete echo was performed using complete 2D, color flow Doppler and spectral Doppler. Overall the study quality was adequate. The study had technical difficulties. The study was difficult due to patient's uncooperativeness. The patient refused ultrasound contrast. Patient asked to stop exam early. BP 127/67 Wall Scoring Baseline Score Index: 2.29 The following segments are akinetic: basal anteroseptal, mid anterior, mid anteroseptal, apical anterior, apical septal, apical inferior, apical lateral and apex. The following segments are hypokinetic: basal anterior, basal inferior, mid inferoseptal, mid inferior, mid inferolateral and mid anterolateral. All other segments are normal. Mark Lopez ENGINEERING PATTERNMAKER-BEVERAGE SERVER CV ECHO ORDERABLES Final Result * (ABNORMAL) Thiamin (Vitamin B1), WB (10/15/2024 1:20 PM EDT) THIAMIN (VITAMIN B1), WB 270(H) 70 - 180 nmol/L 10/17/2024 4:21 AM EDT [facility] Comment: ADDITIONAL INFORMATION This test was developed and its performance characteristics determined by [facility] in a manner consistent with CLIA requirements. This test has not been cleared or approved by the U.S. Food and Drug Administration. Test Performed by: [facility] [address] [place] [id number] Tailing Hand: Ester Macdonald Ph.D.; CLIA# [id number] Blood Venous blood / Unknown Venipuncture / Unknown 10/15/2024 1:20 PM EDT 10/15/2024 1:33 PM EDT Kirti Anitha Burk ENGINEERING PATTERNMAKERPETER [facility] LAB BLOOD ORDERABLES Fi nal Result [facility] [address] [place] [address], * Thyroid profile includes TSH FT4 (10/15/2024 12:34 PM EDT) FREE T4 0.88 0.61 - 1.60 ng/dL 10/15/2024 1:24 PM EDT [facility] TSH 1.37 0.49 - 4.67 uIU/mL 10/15/2024 1:24 PM EDT [facility] Blood Venous blood / Unknown Venipuncture / Unknown 10/15/2024 12:34 PM EDT 10/15/2024 12:45 PM EDT Kirti Burk APRNPETER [facility] LAB BLOOD ORDERABLES Fi nal Result [facility] [place] [address], [place] * (ABNORMAL) Sodium (10/15/2024 12:34 PM EDT) Only the most recent of4 resultswithin the time period is included. SODIUM 149(H) 134 - 146 mmol/L 10/15/2024 1:47 PM EDT [facility] Blood Venous blood / Unknown Venipuncture / Unknown 10/15/2024 12:34 PM EDT 10/15/2024 12:45 PM EDT us Loan Nesbitt MD LAB BLOOD ORDERABLES Final Result [address] [place] [address], [place] * Folate (10/15/2024 12:34 PM EDT) FOLIC ACID 12.7 >5.8 ng/mL 10/15/2024 7:30 PM EDT [facility] Blood Venous blood / Unknown Venipuncture / Unknown 10/15/2024 12:34 PM EDT 10/15/2024 12:45 PM EDT us Kirti Burk APRN-BEVERAGE SERVER LAB BLOOD ORDERABLES Fi nal Result [facility] [address] [place] [address], [place] [phone] * Ultrasound abdomen limited (10/15/2024 10:56 AM EDT) Only the most recent of2 resultswithin the time period is included. Anatomical Region Laterality Modality Body, Abdomen Ultrasound 10/15/2024 11:0 3 AM EDT Narrative 10/15/2024 11:05 AM EDT US ABDOMEN LMTD HISTORY: Pancreatitis with distended gallbladder rule out cholecystitis elevated LFTs rule out common bile duct stone. COMPARISON: 09/12/2024 FINDINGS: Trace peripancreatic fluid. Homogenous liver echotexture without worrisome lesion. Visualized segment of the main portal vein is patent with appropriate direction of flow. No intrahepatic biliary ductal dilatation. Common duct measures 7 mm, borderline dilated. Gallbladder: Distended gallbladder with sludge, but no wall thickening or pericholecystic fluid. Sonographic Mcleod sign negative. Right pleural effusion. IMPRESSION: * Gallbladder sludge without other sonographic evidence of acute cholecystitis. * Borderline dilated CBD. * Right pleural effusion. Finalized by Bakari Roach on 10/15/2024 11:05 AM Procedure Note Bakari Roach MD - 10/15/2024 US ABDOMEN LMTD HISTORY: Pancreatitis with distended gallbladder rule out cholecystitiselevated LFTs rule out common bile duct stone. COMPARISON: 09/12/2024 FINDINGS: Trace peripancreatic fluid. Homogenous liver echotexture without worrisomelesion. Visualized segment of the main portal vein is patent with appropriatedirection of flow. No intrahepatic biliary ductal dilatation. Common duct measures 7 mm,borderline dilated. Gallbladder: Distended gallbladder with sludge, but no wall thickening orpericholecystic fluid. Sonographic Mcleod sign negative. Right pleural effusion. IMPRESSION: * Gallbladder sludge without other sonographic evidence of acutecholecystitis. * Borderline dilated CBD. * Right pleural effusion. Finalized by Bakari Roach on 10/15/2024 11:05 AM us Shashi Eric DO [facility] US ORDERABLES Final Res ult * (ABNORMAL) Vitamin B12 (10/15/2024 5:23 AM EDT) VITAMIN B12 >1,500(H) 180 - 914 pg/mL 10/15/2024 2:24 PM EDT [facility] Blood Venous blood / Unknown Venipuncture / Unknown 10/15/2024 5:23 AM EDT 10/15/2024 6:37 AM EDT Kirti Burk ENGINEERING PATTERNMAKER-BEVERAGE SERVER LAB BLOOD ORDERABLES Fi nal Result [facility] [address] [place] [address], [place] [phone] * (ABNORMAL) Iron and TIBC (10/14/2024 10:39 PM EDT) IRON 282(H) 50 - 170 ug/dL 10/15/2024 10:10 AM EDT [facility] TRANSFERRIN 175 168 - 336 mg/dL 10/15/2024 10:10 AM EDT [facility] IRON BINDING 245(L) 250 - 425 ug/dL 10/15/2024 10:10 AM EDT [facility] IRON SATURATION 115(H) 15 - 50 % SATURATION 10/15/2024 10:10 AM EDT [facility] Blood Venous blood / Unknown Venipuncture / Unknown 10/14/2024 10:39 PM EDT 10/14/2024 10:46 PM EDT Loan Nesbitt MD LAB BLOOD ORDERABLES Final Result Performing Organization Address City/[facility]/ZIP Co de Phone Number [facility] [address] [place] [address], [place] [phone] * Ferritin (10/14/2024 10:39 PM EDT) FERRITIN 167 11 - 307 ng/mL 10/15/2024 10:24 AM EDT [facility] Blood Venous blood / Unknown Venipuncture / Unknown 10/14/2024 10:39 PM EDT 10/14/2024 10:46 PM EDT Loan Nesbitt MD LAB BLOOD ORDERABLES Final Result [facility] [address] [place] [address], * Ammonia (10/14/2024 11:11 AM EDT) AMMONIA 21 11 - 35 umol/L 10/14/2024 11:32 AM EDT [facility] Blood Venous blood / Unknown Venipuncture / Unknown 10/14/2024 11:11 AM EDT 10/14/2024 11:13 AM EDT Gil Kam ENGINEERING PATTERNMAKER-BEVERAGE SERVER LAB BLOOD ORDERABLES Ann l Result [address] [place] [address], [place] * (ABNORMAL) POCT Ionized Calcium (10/14/2024 8:51 AM EDT) Only the most recent of2 resultswithin the time period is included. POC Ionized Calcium 4.2(L) 4.5 - 5.3 mg/dL 10/14/2024 8:57 AM EDT [facility] 10/14/2024 8:51 AM EDT 10/14/2024 8:57 AM EDT Loan Nesbitt MD POINT OF CARE TEST ORDERAB LES Final Result [address] [place] [address], [place] * Light Blue Top (10/14/2024 6:57 AM EDT) Only the most recent of4 resultswithin the time period is included. Extra Tube Auto Resulted 10/14/2024 8:01 AM EDT [facility] Blood Venous blood / Unknown 10/14/2024 6:57 AM EDT 10/14/2024 7:01 AM EDT Carolina Mccarthy MD LAB BLOOD ORDERABLES Final Res ult [facility] [address] [place] [address], [place] * Hepatitis panel, acute (10/14/2024 6:57 AM EDT) HEPATITIS B SURF AG Non-Reacti ve Non-Reacti ve 10/14/2024 11:42 PM EDT [facility] HEPATITIS A IGM Non-Reacti ve Non-Reacti ve 10/14/2024 11:42 PM EDT [facility] HEPATITIS B CORE IGM Non-Reacti ve Non-Reacti ve 10/14/2024 11:42 PM EDT [facility] ANTI HCV W/PCR REFLX Non-Reacti ve Non-Reacti ve 10/14/2024 11:42 PM EDT [facility] Comment: If recent infection suspected, recommend repeat testing (>2 months). Fjpfpi-kz-ffwqis ratio is <1.0. Blood Venous blood / Unknown Venipuncture / Unknown 10/14/2024 6:57 AM EDT 10/14/2024 7:00 AM EDT Gil Kam ENGINEERING PATTERNMAKER-BEVERAGE SERVER LAB BLOOD ORDERABLES Ann l Result Performing Organization Address City/[facility]/ZIP Co de Phone Number [facility] [address] [place] [address], [place] [phone] * (ABNORMAL) Troponin I, High Sensitivity 3 Hour (10/12/2024 10:01 AM EDT) TROPONIN I, HIGH SENSITIVITY 67(H) <16 ng/L 10/12/2024 10:32 AM EDT [facility] Blood Venous blood / Unknown Venipuncture / Unknown 10/12/2024 10:01 AM EDT 10/12/2024 10:04 AM EDT Narrative [facility] - 10/12/2024 10:32 AM EDT Elevations of hs-Troponin may be due to causes other than myocardial ischemia. Recommend serial hs-Troponin testing be performed. For the initial evaluation and management of chest pain patients, refer to the algorithms linked below. Emergency Patient: [email or web address] Inpatient: [email or web address] [facility] LAB BLOOD ORDERABLES Fin al Result Performing Organization Address City/[facility] de Phone Number [address] [address], [place] * Lactate w/ Reflex (10/12/2024 10:01 AM EDT) Only the most recent of5 resultswithin the time period is included. LACTATE W/REFLEX 1.0 0.4 - 2.0 mmol/L 10/12/2024 10:22 AM EDT [facility] Blood Venous blood / Unknown Venipuncture / Unknown 10/12/2024 10:01 AM EDT 10/12/2024 10:04 AM EDT Narrative [facility] - 10/12/2024 10:22 AM EDT Result did not trigger repeat Lactate, re-order if needed. 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 Anatomical Region Laterality Modality Neuro, Head, Head and Neck, Neuro Covera N/A Computed Tomography 10/11/2024 10:0 4 PM EDT Narrative 10/11/2024 10:06 PM EDT STUDY: CT HEAD WITHOUT CONTRAST CLINICAL HISTORY: Change in mental status COMPARISON: Head CT dated 09/12/2024. TECHNIQUE: Multidetector axial images are obtained through the head. Automated exposure control was utilized. FINDINGS: No acute intracranial hemorrhage, midline shift or mass effect. Ventricular and cistern spaces are normal and symmetric. Alexandre and white matter differentiation is well preserved. No intra or extra-axial fluid collections or mass occupying lesions. Bilateral cerebellopontine angles are grossly unremarkable. Visualized orbital contents are normal. Study reviewed in bone windows shows no abnormalities. All visualized sinuses are normally aerated. Bilateral temporomandibular joints are normally aligned. IMPRESSION: No CT evidence of an acute intracranial process. All CT scans at this facility use dose modulation, iterative reconstruction, and/or weight based dosing when appropriate to reduce radiation dose to as low as reasonably achievable. Finalized by Deepika Field MD on 10/11/2024 10:06 PM Procedure Note Deepika Field MD - 10/11/2024 STUDY: CT HEAD WITHOUT CONTRAST CLINICAL HISTORY: Change in mental status COMPARISON: Head CT dated 09/12/2024. TECHNIQUE: Multidetector axial images are obtained through the head.Automated exposure control was utilized. FINDINGS: No acute intracranial hemorrhage, midline shift or mass effect.Ventricular and cistern spaces are normal and symmetric. Alexandre and whitematter differentiation is well preserved. No intra or extra-axial fluidcollections or mass occupying lesions. Bilateral cerebellopontine anglesare grossly unremarkable. Visualized orbital contents are normal. Study reviewed inbone windows shows no abnormalities. All visualized sinuses are normallyaerated. Bilateral temporomandibular joints are normally aligned. IMPRESSION: No CT evidence of an acute intracranial process. All CT scans at this facility use dose modulation, iterativereconstruction, and/or weight based dosing when appropriate to reduceradiation dose to as low as reasonably achievable. Finalized by Deepika Field MD on 10/11/2024 10:06 PM us Mao Alonso DO IMG CT ORDERABLES Final Resul t * CT abdomen and pelvis with contrast (10/11/2024 8:24 PM EDT) Only the most recent of2 resultswithin the time period is included. Anatomical Region Laterality Modality Body, Abdomen, Body Covera N/A Compu dwayne Tomography 10/11/2024 8:51 PM EDT Narrative 10/11/2024 8:52 PM EDT STUDY: ABDOMEN AND PELVIS CT WITH CONTRAST CLINICAL HISTORY: Acute abdominal pain abdominal pain; abnormal LFTs COMPARISON: 09/16/2024 TECHNIQUE: CT abdomen and pelvis was performed utilizing 5 mm axial reconstructions following the uneventful administration of 100 cc Omnipaque 300 nonionic intravenous contrast. Coronal and sagittal reformatted images as well as delayed excretory phase images were obtained and reviewed. Automated exposure control was utilized. FINDINGS: Abdomen: No pleural or pericardial effusion and lung bases. No lower lung consolidation. The gallbladder is present and mildly distended with some adjacent inflammatory change. There is diffuse hepatic steatosis. This inflammatory changes adjacent to the pancreatic head which could be seen with acute interstitial edematous pancreatitis. Atherosclerotic abdominal aorta. Moderate amount of stool throughout the colon. Small bowel not dilated. No renal collecting system dilatation. Pelvis: No free pelvic fluid. No enlarged pelvic lymph nodes. Urinary bladder grossly unremarkable. Uterus is present. Degenerative changes of the spine. No vertebral body loss. IMPRESSION: 1. Peripancreatic edematous changes suggestive of acute interstitial edematous pancreatitis. 2. Distended gallbladder with mild inflammatory changes could be reactive over consider ultrasound if concern for acute gallbladder pathology. All CT scans at this facility use dose modulation, iterative reconstruction, and/or weight based dosing when appropriate to reduce radiation dose to as low as reasonably achievable. Finalized by Shashi Blair MD on 10/11/2024 8:52 PM Procedure Note Shashi Blair MD - 10/11/2024 STUDY: ABDOMEN AND PELVIS CT WITH CONTRAST CLINICAL HISTORY: Acute abdominal pain abdominal pain; abnormal LFTs COMPARISON: 09/16/2024 TECHNIQUE: CT abdomen and pelvis was performed utilizing 5 mm axialreconstructions following the uneventful administration of 100 ccOmnipaque 300 nonionic intravenous contrast. Coronal and sagittalreformatted images as well as delayed excretory phase images were obtainedand reviewed. Automated exposure control was utilized. FINDINGS: Abdomen: No pleural or pericardial effusion and lung bases. No lower lungconsolidation. The gallbladder is present and mildly distended with some adjacentinflammatory change. There is diffuse hepatic steatosis. This inflammatorychanges adjacent to the pancreatic head which could be seen with acuteinterstitial edematous pancreatitis. Atherosclerotic abdominal aorta. Moderate amount of stool throughout the colon. Small bowel not dilated. No renal collecting system dilatation. Pelvis: No free pelvic fluid. No enlarged pelvic lymph nodes. Urinary bladdergrossly unremarkable. Uterus is present. Degenerative changes of the spine. No vertebral body loss. IMPRESSION: 1. Peripancreatic edematous changes suggestive of acute interstitialedematous pancreatitis. 2. Distended gallbladder with mild inflammatory changes could be reactiveover consider ultrasound if concern for acute gallbladder pathology. All CT scans at this facility use dose modulation, iterativereconstruction, and/or weight based dosing when appropriate to reduceradiation dose to as low as reasonably achievable. Finalized by Shashi Blair MD on 10/11/2024 8:52 PM us Mao Alonso DO IMG CT ORDERABLES Final Resul t * CT cervical spine without contrast (10/11/2024 8:24 PM EDT) Anatomical Region Laterality Modality MSK, Neuro, Spine, C-spine, Spine Covera N/A Computed Tomography 10/11/2024 8:33 PM EDT Narrative 10/11/2024 8:36 PM EDT Exam: Cervical spine CT without contrast dated 10/11/2024. HISTORY: Neck pain. COMPARISON: Cervical spine CT dated 05/07/2024. TECHNIQUE: Multidetector axial images with coronal and sagittal reconstructions performed at the CT scanner are obtained through the cervical spine. FINDINGS: Atlantooccipital alignment is normal. Cervical vertebral bodies, facets, spinous processes are normally aligned. Vertebral body heights are maintained at all levels. No perivertebral soft tissue masses or abnormal fluid collections. Lung apices are unremarkable. IMPRESSION: No CT evidence for acute osseous abnormalities in the cervical spine. All CT scans at this facility use dose modulation, iterative reconstruction, and/or weight based dosing when appropriate to reduce radiation dose to as low as reasonably achievable. Finalized by Deepika Field MD on 10/11/2024 8:36 PM Procedure Note Deepika Field MD - 10/11/2024 Exam: Cervical spine CT without contrast dated 10/11/2024. HISTORY: Neck pain. COMPARISON: Cervical spine CT dated 05/07/2024. TECHNIQUE: Multidetector axial images with coronal and sagittalreconstructions performed at the CT scanner are obtained through thecervical spine. FINDINGS: Atlantooccipital alignment is normal. Cervical vertebral bodies, facets,spinous processes are normally aligned. Vertebral body heights are maintained at all levels. No perivertebral soft tissue masses or abnormal fluid collections. Lungapices are unremarkable. IMPRESSION: No CT evidence for acute osseous abnormalities in the cervical spine. All CT scans at this facility use dose modulation, iterativereconstruction, and/or weight based dosing when appropriate to reduceradiation dose to as low as reasonably achievable. Finalized by Deepika Field MD on 10/11/2024 8:36 PM us Ranjana Braun DO IMG CT ORDERABLES Final Resu lt * (ABNORMAL) Lactate (10/11/2024 8:05 PM EDT) Only the most recent of2 resultswithin the time period is included. [facility] LACTATE 2.7(H) 0.4 - 2.0 mmol/L 10/11/2024 8:23 PM EDT [facility] Blood Venous blood / Unknown Venipuncture / Unknown 10/11/2024 8:05 PM EDT 10/11/2024 8:06 PM EDT us Ranjana Braun DO LAB BLOOD ORDERABLES Final R esult [facility] [address] [place] [address], [place] * (ABNORMAL) POCT Nursing Urine Macroscopic UA (10/11/2024 5:40 PM EDT) Only the most recent of2 resultswithin the time period is included. [facility] POC Urine Specific [place] 1.020 1.010, 1.015, 1.020, 1.025 10/11/2024 5:29 PM EDT [facility] POC Urine Leukocyte Esterase Negative Negative 10/11/2024 5:29 PM EDT [facility] POC Urine Nitrite Negative Negative 10/11/2024 5:29 PM EDT [facility] POC Urine pH 6.5 5.0, 6.0, 6.5, 7.0, 7.5, 8.0, 8.5, 5.5 10/11/2024 5:29 PM EDT [facility] POC Urine Protein 100 mg/dL(A) Negative 10/11/2024 5:29 PM EDT [facility] POC Urine Glucose 500 mg/dL(A) Negative 10/11/2024 5:29 PM EDT [facility] POC Urine Ketones 40 mg/dL(A) Negative 10/11/2024 5:29 PM EDT [facility] POC Urine Urobilinogen 0.2 E.U./dL 10/11/2024 5:29 PM EDT [facility] POC Urine Bilirubin Small(A) Negative 10/11/2024 5:29 PM EDT [facility] POC Urine Blood/HGB Negative Negative 10/11/2024 5:29 PM EDT [facility] Urine 10/11/2024 5:40 PM EDT 10/11/2024 5:29 PM EDT us Ranjana Braun DO POINT OF CARE TEST ORDERABLE S Final Result [facility] [address] [place] [address], [place] * Extra Urine [place] (10/11/2024 5:30 PM EDT) Only the most recent of2 resultswithin the time period is included. Extra Tube Auto Resulted 10/11/2024 7:01 PM EDT [facility] Urine Urine specimen collection, clean catch / Unknown 10/11/2024 5:30 PM EDT 10/11/2024 5:52 PM EDT us Ranjana Braun DO URINE ORDERABLES Final Resul t Performing Organization Address City/[facility] Co de Phone Number [address] [place] [address], [place] * Extra Urine Culture (10/11/2024 5:30 PM EDT) Only the most recent of2 resultswithin the time period is included. Extra Tube Auto Resulted 10/11/2024 7:01 PM EDT [facility] Urine Urine specimen collection, clean catch / Unknown 10/11/2024 5:30 PM EDT 10/11/2024 5:52 PM EDT us Ranjana Braun DO URINE ORDERABLES Final Resul t Performing Organization Address [facility] Co de Phone Number [address] [place] [address], [place] * Extra Urine (10/11/2024 5:30 PM EDT) Only the most recent of2 resultswithin the time period is included. Extra Tube Auto Resulted 10/11/2024 7:01 PM EDT [facility] Urine Urine specimen collection, clean catch / Unknown 10/11/2024 5:30 PM EDT 10/11/2024 5:52 PM EDT us Ranjana Braun DO URINE ORDERABLES Final Resul t Performing Organization Address City/[facility] Co de Phone Number [address] [place] [address], [place] * Drug Screen, Urine (10/11/2024 5:30 PM EDT) Only the most recent of2 resultswithin the time period is included. AMPHETAMINE/METHAMP Negative Negative 10/11 6:26 PM EDT [facility] Comment:AMPH/METH screening cut off = 1000 ng/mL COCAINE METABOLITE Negative Negative 2024 6:26 PM EDT [facility] Comment:Cocaine screening cu t off value = 300 ng/mL ECSTASY Negative Negative 10/11/2024 6:26 PM EDT [facility] Comment:Ecstasy screening cu t off value = 500 ng/mL METHADONE Negative Negative 10/11/2024 6:26 PM EDT [facility] Comment:Methadone screening cut off value = 300 ng/mL. OPIATES Negative Negative 10/11/2024 6:26 PM EDT [facility] Comment: Opiates screening cut off value = 300 ng/mL This test is used for the detection of codeine, hydrocodone (>1000 ng/mL), morphine and hydromorphone (>900 ng/mL) in urine. OXYCODONE Negative Negative 10/11/2024 6:26 PM EDT [facility] Comment: Oxycodone screening cut off value = 300 ng/mL This test is used for the detection of oxycodone and oxymorphone in urine. PHENCYCLIDINE Negative Negative 10/11/2024 6:26 PM EDT [facility] Comment:Phencyclidine screen ing cut off value = 25 ng/mL CANNABINOIDS Negative Negative 10/11/2024 6:26 PM EDT [facility] Comment:Cannabinoids/THC scr eening cut off value = 50 ng/mL Urine Barbiturates Negative Negative 2024 6:26 PM EDT [facility] Comment:Barbiturates screeni ng cut off value = 200 ng/mL BENZODIAZEPINES Negative Negative 6:26 PM EDT [facility] Comment:Benzodiazepines scre ening cut off value = 200 ng/mL Urine 10/11/2024 5:30 PM EDT 10/11/2024 5:52 PM EDT us Ranjana Braun DO URINE ORDERABLES Final Resul t [facility] [address] [place] [address] [place] [address], [place] * Lavender Top On Ice (10/11/2024 4:15 PM EDT) Extra Tube Auto Resulted 10/11/2024 6:01 PM EDT [facility] Blood Venous blood / Unknown 10/11/2024 4:15 PM EDT 10/11/2024 4:21 PM EDT us Ranjana Ruby Aparna DO LAB BLOOD ORDERABLES Final R esult Performing Organization Address City/[facility]/ZIP Co de Phone Number [address] [place] [address], [place] * (ABNORMAL) Troponin I, High Sensitivity 1 Hour (10/11/2024 4:15 PM EDT) Only the most recent of2 resultswithin the time period is included. TROPONIN I, HIGH SENSITIVITY 33(H) <16 ng/L 10/11/2024 4:49 PM EDT [facility] Blood Venous blood / Unknown Venipuncture / Unknown 10/11/2024 4:15 PM EDT 10/11/2024 4:18 PM EDT Narrative [facility] - 10/11/2024 4:49 PM EDT Elevations of hs-Troponin may be due to causes other than myocardial ischemia. Recommend serial hs-Troponin testing be performed. For the initial evaluation and management of chest pain patients, refer to the algorithms linked below. Emergency Patient: [email or web address] Inpatient: [email or web address] us Ranjana Ruby Opelika DO LAB BLOOD ORDERABLES Final R esult Performing Organization Address City/[facility] Co de Phone Number [address] [place] [address], [place] * (ABNORMAL) Troponin I, High Sensitivity 0 Hour (10/11/2024 3:00 PM EDT) Only the most recent of2 resultswithin the time period is included. TROPONIN I, HIGH SENSITIVITY 30(H) <16 ng/L 10/11/2024 3:49 PM EDT [facility] Blood Venous blood / Unknown Venipuncture / Unknown 10/11/2024 3:00 PM EDT 10/11/2024 3:06 PM EDT us Ranjana Ruby Opelika DO LAB BLOOD ORDERABLES Final R esult Performing Organization Address [facility] Co de Phone Number [address] [place] [address], [place] * ECG 12 lead (10/11/2024 2:13 PM EDT) Only the most recent of2 resultswithin the time period is included. 10/11/2024 2:13 PM EDT us Ranjana L Opelika DO ECG ORDERABLES Final Result Performing Organization Address City/[facility] Co de Phone Number [email or web address] * C difficile by PCR (09/16/2024 4:04 PM EDT) TOXIGENIC C DIFF Negative Negative 09/17/19 11:28 PM EDT [facility] 027 NAP1 Presumptive Negative Presumptive Negative 09/16/2024 11:28 PM EDT [facility] Comment:Assay methodology is nucleic acid amplification by real-time PCR for detection of C. difficile toxin gene sequences performed on [employer]. Stool Feces / Unknown 09/16/2024 4 :04 PM EDT 09/16/2024 4:35 PM EDT Brandt CORTEZ BODY FLUIDS AND STOOLS ORD ERABLES Final Result [facility] [address] [place] [address], [place] [phone] * Clinical Pathology Review (09/16/2024 10:57 AM EDT) Case Report Clinical Pathology Report Case: [id number] Authorizing Provider: Lele Aguila MD Collected: 09/16/2024 1057 Ordering Location: [facility] Received: 09/16/2024 1057 a Division of [place] [address] Med-Surg/Ortho Pathologist: Skylar Gonzalez MD Specimen: Blood, Venous 09/16/2024 10:47 PM EDT [facility] Final Diagnosis Prominent band in gamma region, recommend immunofixation for further evaluation. Hypoalbuminemia with mild increase in acute phase reactants. 09/16/2024 10:47 PM EDT [facility] at 2247 EDT Venous blood / Unknown 09/16/2024 10:57 AM EDT 09/16/2024 10:57 AM EDT Lele Aguila MD PATHOLOGY/CYTOLOGY ORDERABLES Fi nal Result [facility] [address] [place] [address], [place] [phone] * SST TOP (09/14/2024 1:00 PM EDT) Extra Tube Auto Resulted 09/14/2024 2:02 PM EDT [facility] Blood Venous blood / Unknown 09/14/2024 1:00 PM EDT 09/14/2024 1:03 PM EDT us Kylie Link MD LAB BLOOD ORDERABLES Final Resul t [facility] [address] [place] [address], [place] * X-ray abdomen ap 1 view [...] C-ANCA Negative Negative 09/17/2024 2:56 PM EDT [facility] P-ANCA Negative Negative 09/17/2024 2:56 PM EDT [facility] Comment: Negative for cANCA and pANCA patterns by immunofluorescence. ADDITIONAL INFORMATION This test was developed and its performance characteristics determined by [facility] in a manner consistent with CLIA requirements. This test has not been cleared or approved by the U.S. Food and Drug Administration. Test Performed by: [facility] [address] [place] [address] Tailing Hand: Ester Macdonald Ph.D.; CLIA# [id number] Blood Venous blood / Unknown Venipuncture / Unknown 09/14/2024 4:07 AM EDT 09/14/2024 4:15 AM EDT us Lele Aguila MD LAB BLOOD ORDERABLES Final Resul t Performing Organization Address City/[facility]/ZIP Co de Phone Number [facility] [address] [place] [address], [place] * Glomerular basement membrane IgG AB (09/14/2024 4:07 AM EDT) GBM IGG AB <0.2 <1.0 AI 09/16/2024 11:35 AM EDT [facility] Blood Venous blood / Unknown Venipuncture / Unknown 09/14/2024 4:07 AM EDT 09/14/2024 4:15 AM EDT us Lele Aguila MD LAB BLOOD ORDERABLES Final Resul t [facility] [address] [place] [address], * Proteinase 3 AB PR3 (09/14/2024 4:07 AM EDT) PROTEINASE 3 IGG AB <0.2 <1.0 AI 09/16/2024 10:21 AM EDT [facility] Blood Venous blood / Unknown Venipuncture / Unknown 09/14/2024 4:07 AM EDT 09/14/2024 4:15 AM EDT us Lele Aguila MD LAB BLOOD ORDERABLES Final Resul t [facility] [address] [place] [address], * Myeloperoxidase AB (09/14/2024 4:07 AM EDT) MYELOPEROXIDASE AB <0.2 <1.0 AI 2024 10:21 AM EDT [facility] Blood Venous blood / Unknown Venipuncture / Unknown 09/14/2024 4:07 AM EDT 09/14/2024 4:15 AM EDT us Lele Aguila MD LAB BLOOD ORDERABLES Final Resul t Performing Organization Address City/[facility] Co de Phone Number [facility] [address] [place] [address], * Complement profile (C3 AND C4) (09/14/2024 4:07 AM EDT) COMPLEMENT C3 102 86 - 184 mg/dL 09/14/2024 8:38 AM EDT [facility] COMPLEMENT C4 20 16 - 47 mg/dL 09/14/2024 8:38 AM EDT [facility] Blood Venous blood / Unknown Venipuncture / Unknown 09/14/2024 4:07 AM EDT 09/14/2024 4:15 AM EDT us Lele Aguila MD LAB BLOOD ORDERABLES Final Resul t Performing Organization Address City/[facility]/ZIP Co de Phone Number [facility] [address] [place] [address], [place] [phone] * Anti-Cruz AB IGG (09/14/2024 4:07 AM EDT) ANTI-CRUZ AB IGG <0.2 <1.0 AI 09/16/2024 10:21 AM EDT [facility] Blood Venous blood / Unknown Venipuncture / Unknown 09/14/2024 4:07 AM EDT 09/14/2024 4:15 AM EDT us Lele Aguila MD LAB BLOOD ORDERABLES Final Resul t [facility] [address] [place] [address], [place] [phone] * Hepatitis C(HCV) Ab w/ Reflex to PCR (09/14/2024 4:07 AM EDT) ANTI HCV W/PCR REFLX Non-Reacti ve Non-Reacti ve 09/14/2024 12:47 PM EDT [facility] Comment: If recent infection suspected, recommend repeat testing (>2 months). Ehncvn-cu-bqbqji ratio is <1.0. Blood Venous blood / Unknown Venipuncture / Unknown 09/14/2024 4:07 AM EDT 09/14/2024 4:15 AM EDT us Lele Aguila MD LAB BLOOD ORDERABLES Final Resul t Performing Organization Address [facility]/ZIP Co de Phone Number [facility] [address] [place] [address], [place] [phone] * Hepatitis B Surface Antibody Quantitation (09/14/2024 4:07 AM EDT) ANTI HBS QUANT. <3.0 mIU/mL 09/14/2024 12:51 PM EDT [facility] Blood Venous blood / Unknown Venipuncture / Unknown 09/14/2024 4:07 AM EDT 09/14/2024 4:15 AM EDT Narrative [facility] - 09/14/2024 12:51 PM EDT Vaccinated: >=10 mIU/mL, Positive (Immune) Unvaccinated: <10 mIU/mL, Negative (Not Immune) us Lele Aguila MD LAB BLOOD ORDERABLES Final Resul t [facility] [address] [place] [address], [place] [phone] * Hepatitis B surface antigen (09/14/2024 4:07 AM EDT) HEPATITIS B SURF AG Non-Reacti ve Non-Reacti ve 09/14/2024 12:41 PM EDT [facility] Blood Venous blood / Unknown Venipuncture / Unknown 09/14/2024 4:07 AM EDT 09/14/2024 4:15 AM EDT us Lele Aguila MD LAB BLOOD ORDERABLES Final Resul t Performing Organization Address City/[facility]/ZIP Co de Phone Number [facility] [address] [place] [address], [place] [phone] * Rheumatoid factor (09/14/2024 4:07 AM EDT) Pathologist [facility] RHEUMATOID FACTOR 14 <20 IU/mL 09/14/2024 8:19 AM EDT [facility] Blood Venous blood / Unknown Venipuncture / Unknown 09/14/2024 4:07 AM EDT 09/14/2024 4:15 AM EDT us Lele Aguila MD LAB BLOOD ORDERABLES Final Resul t [facility] [address] [place] [address], [place] [phone] * KANG Screen w/ Reflex (09/14/2024 4:07 AM EDT) Pathologist [facility] KANG SCREEN W/REFLEX Negative Negative 09/16/2024 11:34 AM EDT [facility] Blood Venous blood / Unknown Venipuncture / Unknown 09/14/2024 4:07 AM EDT 09/14/2024 4:15 AM EDT Narrative [facility] - 09/16/2024 11:34 AM EDT Testing performed using multiplex flow immunoassay. Eleven difference antigens associated with systemic autoimmunie diseases (dsDNA, Sm, Sm/YOUTUBER, YOUTUBER, Chromatin, SSA, SSB, Niurka-1, Sc170, Ribo P, Centromere B) are included in this sreening tests. Lele Aguila MD LAB BLOOD ORDERABLES Final Resul t [facility] [address] [place] [address], [place] [phone] * (ABNORMAL) Protein electrophoresis, serum (09/14/2024 4:07 AM EDT) TOTAL PROTEIN 5.1(L) 6.0 - 8.0 g/dL 09/17/2024 5:32 AM EDT [facility] ALPHA 1 GLOBULIN 0.5(H) 0.1 - 0.4 g/dL 09/17/2024 5:32 AM EDT [facility] ALPHA 2 GLOBULIN 0.9 0.4 - 1.1 g/dL 09/17/2024 5:32 AM EDT [facility] BETA GLOBULIN 0.6 0.5 - 1.2 g/dL 09/17/2024 5:32 AM EDT [facility] GAMMA GLOBULIN 0.6 0.5 - 1.6 g/dL 09/17/2024 5:32 AM EDT [facility] Protein Electrophoresis Interp See Pathology Report 09/17/2024 5:32 AM EDT [facility] Albumin 2.5(L) 3.4 - 5.3 g/dL 09/17/2024 5:32 AM EDT [facility] Blood Venous blood / Unknown Venipuncture / Unknown 09/14/2024 4:07 AM EDT 09/14/2024 4:15 AM EDT Lele Aguila MD LAB BLOOD ORDERABLES Final Resul t [facility] [address] [place] [address], [place] [phone] * (ABNORMAL) Microalbumin - Albumin: Creatinine Urine Ratio (09/13/2024 3:04 PM EDT) URINE CREATININE,RDM 65.47 mg/dL 09/13/2024 6:17 PM EDT [facility] MALB/CREAT RATIO 35.1(H) 0.0 - 30.0 mg/g 09/13/2024 6:17 PM EDT [facility] MICROALBUMIN, URINE 2.3(H) 0.0 - 1.9 mg/dL 09/13/2024 6:17 PM EDT [facility] Urine 09/13/2024 3:04 PM EDT 09/13/2024 3:13 PM EDT us Lele Aguila MD URINE ORDERABLES Final Result [facility] [address] [place] [address], * Vas art doppler lwr bilat mult [...] on 09/13/2024 12:24 PM Kylie Link MD IMG FLUOROSCOPY ORDERABLES Final Result * (ABNORMAL) Procalcitonin (09/13/2024 4:11 AM EDT) Only the most recent of2 resultswithin the time period is included. PROCALCITONIN 3.40(H) <0.05 ng/mL 09/13/2024 5:16 AM EDT [facility] Blood Venous blood / Unknown Venipuncture / Unknown 09/13/2024 4:11 AM EDT 09/13/2024 4:32 AM EDT Narrative [facility] - 09/13/2024 5:16 AM EDT <0.50 ng/mL - Low risk of severe sepsis and/or septic shock. <2.00 ng/mL - Recommend retesting within 6-24 hours. >2.00 ng/mL - High risk of sepsis and/or septic shock. us Orquidea Torres PA-C LAB BLOOD ORDERABLES Final R esult Performing Organization Address City/[facility]/ZIP Co de Phone Number [facility] [address] [place] [address], [place] * Urine Creatinine,random (09/13/2024 12:31 AM EDT) URINE CREATININE,RDM 51.96 mg/dL 09/13/2024 1:11 AM EDT [facility] Urine Urine / Unknown 09/13/2024 1 2:31 AM EDT 09/13/2024 12:39 AM EDT us ed Nadia ENGINEERING PATTERNMAKER-BEVERAGE SERVER URINE ORDERABLES Final Res ult [facility] [address] [place] [address], [place] * Sodium, urine, random (09/13/2024 12:31 AM EDT) URINE SODIUM,RANDOM 22 mmol/L 09/13/2024 1:11 AM EDT [facility] Urine 09/13/2024 12:3 1 AM EDT 09/13/2024 12:39 AM EDT us Abed Ramadan ENGINEERING PATTERNMAKER-BEVERAGE SERVER URINE ORDERABLES Final Res ult [facility] [address] [place] [address], [place] * Osmolality, urine (09/13/2024 12:31 AM EDT) URINE OSMOLALITY 389 300 - 1,300 mOsm/kg H2 09/13/2024 11:12 AM EDT [facility] Urine 09/13/2024 12:3 1 AM EDT 09/13/2024 12:39 AM EDT us Abed Ramadan ENGINEERING PATTERNMAKER-BEVERAGE SERVER URINE ORDERABLES Final Res ult [facility] [address] [place] [address], [place] [phone] * (ABNORMAL) Blood gas, venous (09/12/2024 10:39 PM EDT) Sample type VENOUS 09/12/2024 10:42 PM EDT [facility] pH, Venous 7.163(L) 7.320 - 7.420 09/12/2024 10:42 PM EDT [facility] pCO2, Venous 20.1(L) 35.0 - 50.0 mmHg 09/12/2024 10:42 PM EDT [facility] pO2, Venous 62(H) 30 - 50 mmHg 09/12/2024 10:42 PM EDT [facility] Base, Deficit -19.0(L) 0.0 - 2.0 mmol/L 09/12/2024 [facility] HCO3, Venous 7.2(L) 20.0 - 24.0 mmol/L 09/12/2024 10:42 PM EDT [facility] %O2 Saturation, Venous 85.0 % 09/12/2024 10:42 PM EDT [facility] Gilberto's test N/A 09/12/2024 10:42 PM EDT [facility] SPO2 100 % 09/12/2024 10:42 PM EDT [facility] Sample site N/A 09/12/2024 10:42 PM EDT [facility] Insp. O2 conc. 21 % 09/12/2024 10:42 PM EDT [facility] Source Of Oxygen Room Air 09/12/2024 10:42 PM [facility] venous Venous blood / Unknown 09/12/2024 10:39 PM EDT 09/12/2024 10:42 PM EDT us Kylie Link MD LAB BLOOD ORDERABLES Final Resul t [facility] [address] [place] [address], [place] * (ABNORMAL) Osmolality (09/12/2024 10:30 PM EDT) OSMOLALITY 319(H) 280 - 300 mOsm/kg H2 09/13/2024 8:27 AM EDT [facility] Blood Venous blood / Unknown Venipuncture / Unknown 09/12/2024 10:30 PM EDT 09/12/2024 10:34 PM EDT us Torito Zuniga ENGINEERING PATTERNMAKER-BEVERAGE SERVER LAB BLOOD ORDERABLES Final Result [facility] [address] [place] [address], [place] [phone] * (ABNORMAL) Myoglobin, serum (09/12/2024 10:30 PM EDT) SERUM MYOGLOBIN 68.8(H) 14.3 - 65.8 ng/mL 09/12/2024 11:11 PM EDT [facility] Blood Venous blood / Unknown Venipuncture / Unknown 09/12/2024 10:30 PM EDT 09/12/2024 10:34 PM EDT Orquidea Vivek Melissa PA-C LAB BLOOD ORDERABLES Final R esult [facility] [address] [place] [address], [place] * CK Total (09/12/2024 10:30 PM EDT) CPK 34 24 - 170 U/L 09/12/2024 10:58 PM EDT [facility] Blood Venous blood / Unknown Venipuncture / Unknown 09/12/2024 10:30 PM EDT 09/12/2024 10:34 PM EDT Orquidea Vivek Melissa CORTEZ-C LAB BLOOD ORDERABLES Final R esult [facility] [address] [place] [address], [place] * (ABNORMAL) Basic Metabolic Panel (09/12/2024 10:30 PM EDT) SODIUM 127(L) 134 - 146 mmol/L 09/12/2024 10:58 PM [facility] POTASSIUM 4.9 3.5 - 5.0 mmol/L 09/12/2024 10:58 PM [facility] CHLORIDE 102 98 - 109 mmol/L 09/12/2024 10:58 PM [facility] CARBON DIOXIDE 10(L) 22 - 32 mmol/L 09/12/2024 10:58 PM [facility] ANION GAP 15 5 - 15 mmol/L 09/12/2024 10:58 PM [facility] BLOOD UREA NITROGEN 107(H) 5 - 27 mg/dL 09/12/2024 10:58 PM T [facility] CREATININE 2.69(H) 0.40 - 1.00 mg/dL 09/12/2024 10:58 PM [facility] Comment:METHOD TRACEABLE TO IDMS STANDARD GLUCOSE 127(H) 65 - 99 mg/dL 09/12/2024 10:58 PM [facility] CALCIUM 7.5(L) 8.5 - 10.5 mg/dL 09/12/2024 10:58 PM [facility] EGFR Non-Race Dependent 20(L) >=60 ml/min/1.7 3sq.m 09/12/2024 10:58 PM EDT [facility] Comment: Reported eGFR is based on the CKD-EPI 2020 equation that does not use a race coefficient. Blood Venous blood / Unknown Venipuncture / Unknown 09/12/2024 10:30 PM EDT 09/12/2024 10:34 PM EDT us Orquidea Torres PA-C LAB BLOOD ORDERABLES Final R esult [facility] [address] [place] [address], * (ABNORMAL) Blood Gas, Arterial (09/12/2024 6:40 PM EDT) Sample type ARTERIAL 09/12/2024 6:43 PM EDT [facility] pH, Arterial 7.089(LL) 7.350 - 7.450 09/12/2024 6:43 PM EDT [facility] pCO2, Arterial 20.2(LL) 35.0 - 45.0 mmHg 09/12/2024 6:43 PM EDT [facility] PO2, Arterial 121(H) 80 - 100 mmHg 09/12/2024 6:43 PM EDT [facility] Base, Deficit -22.0(L) 0.0 - 2.0 mmol/L 09/12/2024 6:43 PM EDT [facility] HCO3, Arterial 6.1(L) 22.0 - 26.0 mmol/L 09/12/2024 6:43 PM EDT [facility] %O2 Saturation, Arterial 97.0 >90.0 % 09/12/2024 6:43 PM EDT [facility] Gilberto's test N/A 09/12/2024 6:43 PM EDT [facility] SPO2 121 % 09/12/2024 6:43 PM EDT [facility] Sample site R Rad 09/12/2024 6:43 PM EDT [facility] Insp. O2 conc. 21 % 09/12/2024 6:43 PM EDT [facility] Source Of Oxygen Room Air 09/12/2024 6:43 PM EDT [facility] arterial (Blood, Arterial) 09/12/2024 6:40 PM EDT 09/12/2024 6:43 PM EDT us Aiden Loredo DO LAB BLOOD ORDERABLES Final R esult [facility] [address] [place] [address], [place] * CT angiogram abdominal aorta with [...] Paras Nixon MD on 09/12/2024 4:52 PM Aiden Loredo DO IMG CT ORDERABLES Final Resu lt * (ABNORMAL) Urine Culture Urine, Clean Catch Midstream (09/12/2024 4:36 PM EDT) CULTURE RESULTS 10,000-50,000 CFU/mL Streptococci, beta hemolytic not group a or b(A) 09/14/2024 12:32 PM EDT [facility] Urine Urine specimen collection, clean catch / Unknown 09/12/2024 4:36 PM EDT 09/12/2024 9:58 PM EDT Cinthya Simeon APRNPETER [facility] MICROBIOLOGY - GENERAL ORD ERABLES Final Result [facility] [address] [place] [address], * Blood culture (09/12/2024 3:54 PM EDT) Only the most recent of2 resultswithin the time period is included. CULTURE RESULTS NO GROWTH 5 DAYS 09/17/2024 11:01 PM EDT [facility] Blood Venous blood / Unknown Venipuncture / Unknown 09/12/2024 3:54 PM EDT 09/12/2024 3:56 PM EDT Narrative [facility] - 09/17/2024 11:01 PM EDT Suboptimal volume of blood collected, Results may be affected. us Cinthya Simeon APRNPETER [facility] MICROBIOLOGY - GENERAL ORD ERABLES Final Result [facility] [address] [place] [address], * CT angiogram abdomen and pelvis (09/12/2024 [...] Kauffman MD on 09/12/2024 3:57 PM Cinthya Simeon ENGINEERING PATTERNMAKER-BEVERAGE SERVER IMG CT ORDERABLES Final Re sult * CT angiogram chest (09/12/2024 3:46 PM [...] Markos Bañuelos MD on 09/12/2024 4:03 PM Cinthya Simeon APRN-BEVERAGE SERVER IMG CT ORDERABLES Final Re sult * Critical Care (09/12/2024 3:33 PM EDT) Narrative Cinthya Simeon APRN-CNP - 09/12/2024 3:33 PM EDT MARCIAL Burks 09/12/2024 9:21 PM Critical Care Performed by: Collin Mark DO Authorized by: Clolin Mark DO Critical care provider statement: Critical [...] from Last 3 Months Insurance MEDICAID [place] [facility] MEDICARE Member Subscriber Plan / Payer (Ef fective 2023-Present) Name:Alie Lowe Relation to Subscriber:Self Name:Alie Lowe Payer ID:[id number] (NAIC) Type:Not on file Address: [address] [facility] MEDICARE [place]ICAID [place] Advance Directives * Full Code (Latest Code Status on File) Date Activated Date Inactivated Comments 10/11/2024 10:10 PM 10/25/2024 3:16 PM * Full Code Date Activated Date Inactivated Comments 09/12/2024 10:28 PM 09/18/2024 8:15 PM * Full Code Date Activated Date Inactivated Comments 05/08/2024 7:31 AM 05/18/2024 9:39 PM * Full Code Date Activated Date Inactivated Comments 05/07/2024 4:02 PM 05/07/2024 5:32 PM Care Teams Receiver Relationship Specialty Start Date End Date [facility] [address] [place], [place] PCP - General Family Medicine 05/07/24
--- OUTSIDE RECORDS SUMMARY | 2024-11-25 09:11 | XMS_ITS | Encounter Summary ---
Author Organization [facility] Address [facility] [id number] [address] [place] [address] Care Team Providers Care Transfer Clerk Name Role Phone Services, [facility] Primary Care Provider Reason for Visit * Reason Onset Date Comments Med Refill 07/30/2019 Encounter Details Date Type Department Care Team (Late Contact Info) Description 07/30/2019 Refill [facility] [address] [place] [phone] Ceci Day, DONTE Social History Tobacco Use Types Packs/Day Years [...] Team ([facility] Contact Info) Description 12/10/2024 12:30 PM EDT Office Visit [facility] [address] [place] [id number] Nishi Graham, PASTING MACHINE OPERATOR-PAPER CONE MAKER [address] [place] [address] documented as of this encounter Visit Diagnoses Not on filedocumented in this encounter Additional Health Concerns Infection Onset Date Last Indicated Resolved Time COVID-19 Positive 09/03/2019 09/03/2019 09/24/2019 11:12 PM EDT Enteric Rule-Out 09/16/2024 09/16/2024 09/16/2024 11:28 PM EDT documented as of this encounter Care Teams Transfer Clerk Relationship Specialty Start Date End Date Services, [facility] [address] [place], [place] PCP - General Family Medicine 05/07/24 documented as of this encounter
--- OUTSIDE RECORDS SUMMARY | 2024-11-25 09:14 | XMS_ITS | CCD ---
Author Organization [facility] Inform ion Partnership [facility] Care Team Providers Care Assayer Helper Name Role Phone MD Sandra Branch Admit Provider [phone] MD Sandra Branch Attending Provider MD Igor Holliday Primary Care Provider DONTE Hawthorne Other Provider Unavailable DONTE Robles Other Provider Unavailable DONTE Tyler Other Provider Unavailable Cherise RN Joan Other Provider Unavailable DONTE Waters Other Provider Unavailable Bc RN Zeynep Other Provider Unavailable DONTE Pinto Other Provider Unavailable MD Bulmaro Alvarado Other Provider MD Christiano Smith Other Provider Cj, SOCK MENDER Arlin Doyel Other Provider DO Arue Chavez Other Provider MD Hernandez Martines Other Provider DO Abilio Jackman Other Provider [phone] MD Markus Calzada Other Provider MD Lynn Silva Other Provider CHECO Barber-EDEN Larios Other Provider MD Patricia Gama Other Provider MD Julio Jimenez Other Provider MD Makeda Gan Other Provider MD Leyla Corona Other Provider MD Barrett Hall Other Provider MD Raghav Isidro Other Provider MD Bharath Cedeno Other Provider MD Christophe Thomas Other Provider JC Viveros Other Provider [phone] MD Tuan Bettencourt Other Provider MD Freedom Casas Other Provider MD Miles Galicia Other Provider Unavailable MD Kym Ward Other Provider MD Jaya Brito Other Provider MD Macario Disla Other Provider DO Carla Fountain Other Provider MD Berry Coates Other Provider DO Hamlet Avitia Other Provider [phone] DO Jose Ivy Other Provider MIKAELA Juan Other Provider DONTE Castillo Other Provider Unavailable Igor Holliday Primary Care Unavailable Sandra Branch Attending Unavailabl Sandra Elias Admitting Unavailabl Alexandra Kirkland Consulting Unavailable Myrna Robles Consulting Unavailable Gale Tyler Consulting Unavailable Joan Luong Consulting Unavailable Daphne Waters Consulting Unavailable Zeynep Yancey Consulting Unavailable Kallie Pinto Consulting Unavailable Bulmaro Alvarado Consulting Unavailable LuisChristiano K Consulting Unavailable Arlin Corona Consulting Unavailable Aure Chavez Consulting Unavailable Hernandez Martines Consulting Unavailable Abilio Jackman Consulting Unavailabl Markus Stapleton Consulting Unavailable Lynn Silva Consulting Unavailable Harriet Barber Consulting Unavailable Patricia Gama Consulting Unavailable Zraik, Julio Consulting Unavailable Gan, Makeda Consulting Unavailable Cj, Safwan Consulting Unavailable Barrett Hall Consulting Unavailable SeRaghav garg Consulting Unavailable NarBharath yoo Consulting Unavailable Christophe Thomas Consulting Unavailable Argenis Viveros Consulting Unavailable DoameTuan june Consulting Unavailab le Augusto, Freedom Consulting Unavailable Miles Galicia Consulting Unavailable Ed, Kym Consulting Unavailable Daryl, Jaya Consulting Unavailable Ghanbari Rostamabadelena, Macario Consulting Vidhya Carla Solorio Consulting Unavailable Al Saltelena Al Franco, Berry Consulting Unavailab le Sadi, Neal R Consulting Unavailable MiniJose joe Consulting Unavailable Obika, Jessie Consulting Unavailable Elisa Castillo Consulting Unavailable Latha Baker MD Primary Care Provider Services, [facility] Primary Care Provider PROVIDER, UNKNOWN Attending Unavailable PROVIDER, UNKNOWN Admitting Unavailable Services, [facility] Primary [facility] Provider Shaikh Byrne MD Primary Care Provider ART BLUE Attending Unavailable ORALIA, MERE Referring Unavailable Talib VAN, Alexander Manzo Attending Unavailable Talib VAN, Alexander Manzo Attending Unavailable Talib VAN, Andrius Manzo Attending Unavailable Talib VAN, Casrius Manzo Attending Unavailable ORALIA, MERE Referring Unavailable LATHA BAKER Primary Care Unavailable SERVICES, [facility] Primary Care Unava ilable GRETCHEN MICHELE Attending Unavailable MICI, TEAGAN Attending Unavailable SERVICES, [facility] Primary Care Unava ilable MICI, TEAGAN Referring Unavailable SERVICES, [facility] Primary Care Unava ilable SERVICES, [facility] Primary Care Unava ilable AIDEN LOPEZ Attending Unavailable MICI, TEAGAN Attending Unavailable MICI, TEAGAN Referring Unavailable SERVICES, [facility] Unava ilable GIOVANNI HDEZ Attending Unavailable GIOVANNI HDEZ Referring Unavailable SERVICES, [facility] Unava ilable SERVICES, [facility] Unava ilable MIRYAM AGUDELO Consulting Unavailable FABIO, MUHAMID M Admitting Unavailable FABIO, MUHAMID M Attending Unavailable INPATIENT, [facility] Consulting Unavail able VIVIANA MCCLOUD Attending Unavailable MAYA LUCIANO Admitting Unavailable GIOVANNI HDEZ Referring Unavailable SERVICES, [facility] Unava ilable BERRY SAEZ Consulting Unavailable [facility] Consulting Unavailable PRACHI WEI Consulting Unavailable HOLLY HIDALGO Consulting Unavailable GURINDER ESPINAL Attending Unavailable GURINDER ESPINAL Referring Unavailable SERVICES, [facility] Unava ilable MAHDI, AHMAD Referring Unavailable SERVICES, [facility] Unava ilable MAHDI, AHMAD Referring Unavailable SERVICES, [facility] Unava ilable ISABEL HARRIS Referring Unavailable SERVICES, [facility] Unava ilable VIVIANA MCCLOUD Referring Unavailable SERVICES, [facility] Unava ilable KYALA LINK Admitting Unavailable ELIZABETH SIMEON Referring Unavailable SERVICES, [facility] Unava ilable KIMMY ATKINSON Consulting Unavailable RAYSA MEHTA Attending Unavailable ANA MARÍA SIERRA Consulting Unavailable LUIS CUTLER Consulting Unavailable MAYA LUCIANO Consulting Unavailable JESSICA, OFELIAMALorena M Referring Unavailable SERVICES, [facility] Unava ilable FABIO, MUHAMID M Referring Unavailable SERVICES, [facility] Unava ilable Mg VAN, Igor Primary Care Provider Su Peña, Art Attending Provider Allergies Allergy Classification Reported Allergen(s) Allergy Type Date of Onset Reaction(s) Facility (18 sources) Sulfonamides (Antibiotic); Translations: [Sulfa (Sulfonamide Antibiotics)] Allergy to substance 8 Itching, Rash [facility] Medications Current Medications Medication Drug Class(es) Dates Sig (Normalized) Sig (Original) acetaminophen 325 mg oral tablet (1 source) Start: 05-09-2024 take 650 mg by mouth every four hours as needed for pain and headache acetaminophen 300 mg / codeine phosphate 30 mg oral tablet (2 sources) Opioid Agonist Start: 05-09-2024 aspirin 81 mg chewable tablet (17 sources) Platelet Aggregation Inhibitor, Nonsteroidal Anti-inflammatory Drug Start: 05-18-2024 End: 06-12-2025 aspirin 81 mg chewable tablet Chew 1 tablet (81 mg total) and swallow in the morning for 360 days. 90 tablet 3 06/17/2024 06/12/2025 Active Start: 05-07-2024 End: 08-16-2024 Start: 05-07-2024 End: 05-07-2024 atorvastatin 80 mg oral tablet (17 sources) HMG-CoA Reductase Inhibitor Start: 05-18-2024 End: 06-17-2024 take 1 tablet by mouth once daily atorvastatin (LIPITOR) 80 mg tablet Take 1 tablet (80 mg total) by mouth nightly. 90 tablet 3 06/17/2024 Active Start: 05-08-2024 busPIRone hydrochloride 10 mg oral tablet (17 sources) Start: 04-29-2020 take 1 tablet by mouth in the morning, then take 1 tablet by mouth at bedtime busPIRone (BUSPAR) 10 mg tablet Take 1 tablet (10 mg total) by mouth in the morning and 1 tablet (10 mg total) before bedtime. 05/18/2024 Active Start: 04-29-2020 End: 05-18-2024 clopidogrel 75 mg oral tablet (3 sources) P2Y12 Platelet Inhibitor Start: 09-19-2024 take 1 tablet by mouth in the morning clopidogreL (PLAVIX) 75 mg tablet Take 1 tablet (75 mg total) by mouth in the morning. 30 tablet 1 09/19/2024 Active cyclobenzaprine hydrochloride 10 mg oral tablet (8 sources) Muscle Relaxant Start: 09-18-2024 take 1 tablet by mouth once daily at bedtime cyclobenzaprine (FLEXERIL) 10 mg tablet Take 1 tablet (10 mg total) by mouth once daily at bedtime. 09/18/2024 Active Start: 07-06-2021 End: 05-08-2024 dapagliflozin 10 mg oral tablet (15 sources) Sodium-Glucose Cotransporter 2 Inhibitor Start: 05-18-2024 End: 06-12-2025 take 1 tablet by mouth in the morning dapagliflozin propanediol (FARXIGA) 10 mg tablet Take 1 tablet (10 mg total) by mouth in the morning for 360 days. 90 tablet 3 06/17/2024 06/12/2025 Active Start: 05-10-2024 End: 08-16-2024 diphenhydrAMINE (1 source) Histamine-1 Receptor Antagonist Start: 05-07-2024 ergocalciferol 1.25 mg oral capsule (2 sources) Provitamin D2 Compound Start: 07-11-2021 Ergocalciferol (Vitamin D2) Active 1250 MCG PO We@0900 5 July 11, 2021 9:02am folic acid 1 mg oral tablet (14 sources) Start: 05-18-2024 take 1 tablet by mouth in the morning folic acid (FOLVITE) 1 mg tablet Take 1 tablet (1 mg total) by mouth in the morning. 05/18/2024 Active Start: 05-13-2024 gabapentin 300 mg oral capsu le (19 sources) Anti-epileptic Agent Start: 07-06-2021 End: 05-08-2024 glucagon (rdna) 1 mg injecti on (1 source) Antihypoglycemic Agent Start: 05-07-2024 glucose 0.4 mg/mg oral gel (3 sources) Start: 05-07-2024 Start: 05-07-2024 1 ml heparin sodium, porcine 5000 unt/ml injection (2 sources) Unfractionated Heparin, Anti-coagulant Start: 05-08-2024 Start: 05-07-2024 End: 05-08-2024 ivermectin 3 mg oral tablet (2 sources) Antiparasitic, Pediculicide Start: 07-11-2021 Ivermectin (Stromectol) 3 [...] six hours as needed fo r anxiety 24 hr metoprolol succinate 25 mg extended release oral tablet (15 sources) beta-Adrenergic Terrence Start: 05-08-2024 End: 06-17-2024 take 0.5 tablet by mouth every twenty-four hours in the morning metoprolol succinate XL (TOPROL XL) 25 mg 24 hr tablet Indications: Chronic systolic heart failure (CMS-HCC) Take 0.5 tablets (12.5 mg total) by mouth in the morning. 45 tablet 3 06/17/2024 Active 1 ml morphine sulfate 2 mg/ml injection (2 sources) Opioid Agonist Start: 05-16-2024 take 2 mg intravenously every eight hours as needed Start: 05-07-2024 End: 05-16-2024 take 4 mg intravenously every two hours as needed for pain nitroglycerin 0.4 mg subling ual tablet (3 sources) Nitrate Vasodilator Start: 05-07-2024 End: 05-07-2024 Start: 05-07-2024 End: 05-07-2024 polyethylene glycol 3350 84829 mg powder for oral solution (1 source) Osmotic Laxative Start: 05-12-2024 pravastatin sodium 20 mg oral tablet (2 sources) HMG-CoA Reductase Inhibitor Start: 07-11-2021 take 20 mg by mouth once daily in the evening Pravastatin Active 20 MG PO Every evening July 11, 2021 9:03am risperiDONE 1 mg oral tablet (2 sources) Atypical Antipsychotic Start: 07-11-2021 take 1 mg by mouth at bedtime Risperidone Active 1 MG PO Bedtime July 11, 2021 9:03am 125 ml sodium chloride 9 mg/ml prefilled syringe (4 sources) Start: 05-07-2024 spironolactone 25 mg oral tablet (15 sources) Aldosterone Antagonist Start: 05-18-2024 End: 06-17-2024 take 1 tablet by mouth in the morning spironolactone (ALDACTONE) 25 mg tablet Take 1 tablet (25 mg total) by mouth in the morning. 90 tablet 3 06/17/2024 Active Start: 05-11-2024 valsartan 40 mg oral tablet (15 sources) Angiotensin 2 Receptor Terrence Start: 05-18-2024 End: 06-17-2024 take 1 tablet by mouth in the morning, then take 1 tablet by mouth at bedtime valsartan (DIOVAN) 40 mg tablet Take 1 tablet (40 mg total) by mouth in the morning and 1 tablet (40 mg total) before bedtime. 90 tablet 3 06/17/2024 Active Start: 05-18-2024 Start: 05-10-2024 vitamin b12 1 mg oral tablet (2 sources) Vitamin B12 Start: 07-11-2021 take 1000 ug [...] mouth in the morning. 1 09/25/2018 Suspended baclofen 10 mg oral tablet (4 sources) gamma-Aminobutyric Acid-ergic Agonist benzonatate 100 mg oral capsule (8 sources) Non-narcotic Antitussive Start: 2024 End: 2024 take 1 capsule by mouth three times daily as needed for cough benzonatate (TESSALON PERLES) 100 mg capsule Take 1 capsule (100 mg total) by mouth 3 (three) times a day as needed for cough. 05/18/2024 06/17/2024 Discontinued (Therapy completed) calcium chloride 0.0014 meq/ml / potassium chloride 0.004 meq/ml / sodium chloride 0.103 meq/ml / sodium lactate 0.028 meq/ml injectable solution (1 source) Start: 2024 End: 2024 docusate sodium 50 mg / sennosides, senior living 8.6 mg oral tablet (14 sources) Start: 2024 End: 2024 take 2 tablets by mouth twice daily as needed for constipation sennosides-docusat e sodium (SENOKOT-S) 8.6-50 mg Take 2 tablets by mouth 2 (two) times a day as needed for constipation. 05/18/2024 10/07/2024 Discontinued Start: 05-12-2024 250 ml DOPamine hydrochlorid e 1.6 mg/ml injection (1 source) Catecholamine Start: 05-07-2024 End: 05-08-2024 DULoxetine 60 mg delayed release oral capsule (19 sources) Serotonin and Norepinephrine Reuptake Inhibitor Start: 05-08-2024 Start: 07-06-2021 End: 08-25-2025 take 1 capsule by mouth in the morning DULoxetine (CYMBALTA) 60 mg capsule Take 1 capsule (60 mg total) by mouth in the morning. 05/18/2024 10/07/2024 Discontinued ibuprofen 600 mg oral tablet (6 sources) Nonsteroidal Anti-inflammatory Drug Start: 10-30-2022 Start: 07-06-2021 take 600 mg by mouth every six hours Ibuprofen Active 600 MG PO Q6H July 06, 2021 4:32pm Magnesium Sulfate (Bulk) (Epsom Salt) 100 % Crystals (2 sources) Start: 07-06-2021 End: 07-11-2021 Magnesium Sulfate (Bulk) (Ep juan Salt) 100 % Crystals Discontinued 1 APPLIC TOPICAL Three times daily July 06, 2021 5:11pm July 11, 2021 12:09pm Start: 07-06-2021 End: 07-11-2021 Magnesium Sulfate (Bulk) (Ep juan Salt) 100 % Crystals Discontinued 1 APPLIC TOPICAL Three times daily July 06, 2021 12:00am July 11, 2021 12:09pm melatonin 5 mg chewable tabl et (3 sources) End: 05-08-2024 melatonin 5 mg t ablet,chewable Chew 1 tablet and swallow nightly. 1-2 nightly Suspended nicotine 4 mg chewing gum (8 sources) Cholinergic Nicotinic Agonist Start: 06-17-2024 End: 10-07-2024 nicotine polacrilex (NICORETTE) 4 MG gum Indications: [...] other tobacco product 100 each 3 06/17/2024 10/07/2024 Discontinued Start: 05-11-2024 omeprazole 40 mg delayed rel [...] sources) Atypical Antipsychotic Start: 05-07-2024 End: 05-09-2024 thiamine 100 mg oral tablet (16 sources) Start: 05-13-2024 End: 10-07-2024 take 1 tablet by mouth in the morning thiamine HCl (VITAMIN B-1) 100 mg tablet Take 1 tablet (100 mg total) by mouth in the morning. 05/18/2024 10/07/2024 Discontinued Start: 07-11-2021 take 100 mg by mouth once quyen y Thiamine Hcl (Vitamin B1) Active 100 MG PO Daily July 11, 2021 9:03am 100 ml tirofiban 0.05 mg/ml injection (1 source) Platelet Aggregation Inhibitor Start: 05-07-2024 End: 05-08-2024 valACYclovir 500 mg oral tab let (7 sources) Herpesvirus Nucleoside Analog DNA Polymerase Inhibitor, Herpes Simplex Virus Nucleoside Analog DNA Polymerase Inhibitor, Herpes Zoster Virus Nucleoside Analog DNA Polymerase Inhibitor Start: 08-30-2021 End: 05-08-2024 Start: 07-06-2021 take 500 mg by mouth once daily Valacyclovir Active 500 MG PO Daily July 06, 2021 5:42pm (7 sources) Start: 05-10-2024 End: 05-13-2024 take [...] Problem Classification Problem Date Documented Date Episodic/Chronic Abdominal pain (1 source) Unspecified abdominal pain; Translations: [Unspecified abdominal pain] Onset: 10-11-2024 Episodic Acute and unspecified renal failure (1 source) Acute kidney failure, unspecified; Translations: [Acute kidney failure, unspecified] Onset: 09-12-2024 Episodic Acute myocardial infarction (18 sources) Myocardial infarction; Translations: [ST elevation (STEMI) myocardial infarction of unspecified site] Onset: 05-07-2024 05-07-2024 Chronic Administrative/social admission (4 sources) Bereavement; Translations: [Disappearance and of family member] 05-21-2024 Episodic Alcohol-related disorders (8 sources) Alcohol amnestic disorder; Translations: [Alcohol dependence with alcohol-induced persisting amnestic disorder] Onset: 07-06-2021 07-10-2021 Chronic Comment on above: Problem List clean-u p per request of Phys. EHR Cmte Alcohol-related disorders (2 sources) Alcoholic encephalopathy; Translations: [Alcohol use, unspecified with alcohol-induced persisting amnestic disorder] 05-30-2024 Episodic Conduction disorders (20 sources) Complete atrioventricular block; Translations: [Atrioventricular block, complete] Onset: 05-07-2024 05-07-2024 Chronic Congestive heart failure; nonhypertensive (11 sources) Chronic systolic heart failure; Translations: [Chronic systolic (congestive) heart failure] Onset: 06-17-2024 06-17-2024 Chronic Coronary atherosclerosis and other heart disease (20 sources) Coronary arteriosclerosis; Translations: [Atherosclerotic heart disease of [place] coronary artery without angina pectoris] Onset: 05-07-2024 05-18-2024 Chronic Disorders of lipid metabolism (16 sources) Mixed hyperlipidemia; Translations: [Mixed hyperlipidemia] Onset: 05-11-2024 05-11-2024 Chronic E Codes: Fall (1 source) Fall Onset: 05-07-2024 Essential hypertension (17 sources) Hypertensive disorder; Translations: [Essential (primary) hypertension] Onset: 05-11-2024 06-18-2020 Chronic Malaise and fatigue (2 sources) Weakness; Translations: [Fatigue] Onset: 09-12-2024 Episodic Nutritional deficiencies (1 source) Moderate protein-calorie malnutrition; Translations: [Moderate protein-calorie malnutrition] Onset: 10-16-2024 Chronic Other infections; including parasitic (2 sources) Infestation by Sarcoptes scabiei eleanor hominis; Translations: [Scabies] 07-06-2021 Episodic Comment on above: Problem List clean-u p per request of Phys. EHR Cmte Other nervous system disorders (4 sources) Disturbance of attention; Translations: [Attention and concentration deficit] 05-21-2024 Chronic Other skin disorders (2 sources) Eruption; Translations: [Rash and other nonspecific skin eruption] 07-06-2021 Episodic Comment on above: Problem List clean-u p per request of Phys. EHR Cmte Other skin disorders (1 source) Rash and other nonspecific skin eruption; Translations: [Rash and other nonspecific skin eruption] Episodic Pancreatic disorders (not diabetes) (1 source) Acute pancreatitis without necrosis or infection, unspecified; Translations: [Acute pancreatitis without necrosis or infection, unspecified] Onset: 10-11-2024 Episodic Residual codes; unclassified (5 sources) Altered [...] 06-17-2024 Episodic Schizophrenia and other psychotic disorders (4 sources) Psychotic disorder; Translations: [Unspecified psychosis not due to a substance or known physiological condition] Onset: 07-06-2021 07-07-2021 Chronic Comment on above: Problem List clean-u p per request of Phys. EHR Cmte Septicemia (except in labor) (6 sources) Sepsis; Translations: [Sepsis, unspecified organism] Onset: 09-12-2024 09-12-2024 Episodic Spondylosis; intervertebral disc disorders; other back problems (20 sources) Cervical spondylosis without myelopathy; Translations: [Spondylosis without myelopathy or radiculopathy, cervical region] Onset: 11-03-2017 11-18-2021 Chronic Spondylosis; intervertebral disc disorders; other back problems (1 source) Neck pain Onset: 10-11-2024 Episodic Unclassified (1 source) Hospital Follow-up Onset: 06-17-2024 [...] initial encounter] Onset: 05-07-2024 Episodic Mood disorders (13 sources) Mood disorders Onset: 11-11-2021 11-11-2021 Other infections; including parasitic (2 sources) Scabies; Translations: [Scabies] Onset: 07-06-2021 Episodic Other screening for suspected conditions (not mental disorders or infectious disease) (4 sources) Other specified abnormal findings of blood chemistry; Translations: [Encounter for screening for cardiovascular disorders] Onset: 04-06-2024 Episodic Residual codes; unclassified (2 sources) Altered mental status, unspecified; Translations: [Altered mental status, unspecified] Onset: 05-07-2024 Episodic Residual codes; unclassified (1 source) Tobacco use; Translations: [Tobacco use] Onset: 06-17-2024 Episodic Residual codes; unclassified (1 source) Other amnesia; Translations: [Other amnesia] Onset: 04-06-2024 Episodic Syncope (1 source) Syncope and collapse; Translations: [Syncope and collapse] Onset: 05-07-2024 Episodic Unclassified (13 sources) Onset: 06-18-2020 06-18-2020 Results Test Name Value Interpretation Reference Range Facility CBC WITH AUTO DIFFERENTIALon 10-25-2024 CELLAVISION BASOPHILS ABSOLUTE COUNT (10*3/UL) BY MANUAL COUNT 0.1 10*3/uL Normal 0.0-0.2 [facility] Comment on above: Result Comment: This is an appended report. These results have been appended to a previously preliminary verified report. Performed By: #### C BCA, HA1C, CMP, TSHR, 2132-9, 2276-4, FEPR, 2284-8, 23113-8 #### [facility] ([id number]) [address], [address] [place] [address] #### [id number] #### [facility] ([id number]) [address] [place] [address] CELLAVISION BASOPHILS RELATIVE PERCENT BY MANUAL COUNT 3 % Normal [facility] Comment on above: Result Comment: This is an appended report. These results have been appended to a previously preliminary verified report. Performed By: #### C BCA, HA1C, CMP, TSHR, 2132-9, 2276-4, FEPR, 2284-8, 28968-9 #### [facility] ([id number]) [address], [address] [place] [address] #### [id number] #### [facility] ([id number]) [address] [place] [address] CELLAVISION DIFFERENTIAL TYPE MANUAL DIFFERENTIAL Normal [facility] Comment on above: Result Comment: This is an appended report. These results have been appended to a previously preliminary verified report. Performed By: #### C BCA, HA1C, CMP, TSHR, 2132-9, 2276-4, FEPR, 2284-8, 64587-7 #### [facility] ([id number]) [address], [address] [place] [address] #### [id number] #### [facility] ([id number]) [address] [place] [address] CELLAVISION ELLIPTOCYTES IN BLOOD BY LIGHT MICROSCOPY 1+ Normal [facility] Comment on above: Result Comment: This is an appended report. These results have been appended to a previously preliminary verified report. Performed By: #### C BCA, HA1C, CMP, TSHR, 2132-9, 2276-4, FEPR, 2284-8, 27164-6 #### [facility] ([id number]) [address], [address] [place] [address] #### [id number] #### [facility] ([id number]) [address] [place] [address] 14819 CELLAVISION EOSINOPHILS ABSOLUTE COUNT (10*3/UL) BY MANUAL COUNT 0.1 10*3/uL Normal 0.0-0.4 [facility] Comment on above: Result Comment: This is an appended report. These results have been appended to a previously preliminary verified report. Performed By: #### C BCA, HA1C, CMP, TSHR, 2132-9, 2276-4, FEPR, 2284-8, 58596-5 #### [facility] ([id number]) [address], [address] [place] [address] #### [id number] #### [facility] ([id number]) [address] [place] [address] 39360 CELLAVISION EOSINOPHILS PERCENT BY MANUAL COUNT 3 % Normal [facility] Comment on above: Result Comment: This is an appended report. These results have been appended to a previously preliminary verified report. Performed By: #### C BCA, HA1C, CMP, TSHR, 2132-9, 2276-4, FEPR, 2284-8, 82396-1 #### [facility] ([id number]) [address], [address] [place] [address] #### 23050-7 #### [facility] ([id number]) [address] [place] [address]23 CELLAVISION LYMPHOCYTES ABSOLUTE COUNT (10*3/UL) BY MANUAL COUNT 2.1 10*3/uL Normal 1.0-3.5 [facility] Comment on above: Result Comment: This is an appended report. These results have been appended to a previously preliminary verified report. Performed By: #### C BCA, HA1C, CMP, TSHR, 2132-9, 2276-4, FEPR, 2284-8, 42473-7 #### [facility] ([id number]) [address], [address] [place] [address] #### [id number] #### [facility] ([id number]) [address] [place] [address]30 CELLAVISION LYMPHOCYTES RELATIVE PERCENT BY MANUAL COUNT 36 % Normal [facility] Comment on above: Result Comment: This is an appended report. These results have been appended to a previously preliminary verified report. Performed By: #### C BCA, HA1C, CMP, TSHR, 2132-9, 2276-4, FEPR, 2284-8, 19987-5 #### [facility] ([id number]) [address] [facility], [address] [place] [address] #### 70872-0 #### [facility] ([id number]) [address] [place] [address] 19886 CELLAVISION METAMYELOCYTES RELATIVE PERCENT BY MANUAL COUNT 1 % Normal [facility] Comment on above: Result Comment: This is an appended report. These results have been appended to a previously preliminary verified report. Performed By: #### C BCA, HA1C, CMP, TSHR, 2-9, 2276-4, FEPR, 2284-8, 18607-3 #### [facility] ([id number]) [address] [facility], [address] [place] [address] #### 20462-1 #### [facility] ([id number]) [address] [place] [address] 25760 CELLAVISION MONOCYTES ABSOLUTE COUNT (10*3/UL) IN BLOOD BY MANUAL COUNT 0.5 10*3/uL Normal 0.0-0.9 [facility] Comment on above: Result Comment: This is an appended report. These results have been appended to a previously preliminary verified report. Performed By: #### C BCA, HA1C, CMP, TSHR, 2132-9, 2276-4, FEPR, 2284-8, 89209-6 #### [facility] ([id number]) [address] [facility], [address] [place] [address] #### 75191-6 #### [facility] ([id number]) [address] [place] [address] 57554 CELLAVISION MONOCYTES RELATIVE PERCENT BY MANUAL COUNT 9 % Normal [facility] Comment on above: Result Comment: This is an appended report. These results have been appended to a previously preliminary verified report. Performed By: #### C BCA, HA1C, CMP, TSHR, 2132-9, 2276-4, FEPR, 2284-8, 35519-5 #### [facility] ([id number]) [address], [address] [place] [address] #### 85394-7 #### [facility] ([id number]) [address] [place] [address] 52787 CELLAVISION NEUTROPHILS ABSOLUTE COUNT BY MANUAL COUNT 2.9 10*3/uL Normal 1.5-6.6 [facility] Comment on above: Result Comment: This is an appended report. These results have been appended to a previously preliminary verified report. Performed By: #### C BCA, HA1C, CMP, TSHR, 2-9, 2276-4, FEPR, 2284-8, 99877-1 #### [facility] ([id number]) [address], [address] [place] [address] #### 99352-7 #### [facility] ([id number]) [address] [place] [address] 44447 CELLAVISION NEUTROPHILS RELATIVE PERCENT BY MANUAL COUNT 50 % Normal [facility] Comment on above: Result Comment: This is an appended report. These results have been appended to a previously preliminary verified report. Performed By: #### C BCA, HA1C, CMP, TSHR, 2132-9, 2276-4, FEPR, 2284-8, 98211-0 #### [facility] ([id number]) [address], [address] [place] [address] #### 09698-5 #### [facility] ([id number]) [address] [place] [address] 20603 Erythrocyte distribution width (RBC) [Ratio] 20.6 % High 11.5-15 [facility] Comment on above: Performed By: #### C BCA, HA1C, CMP, TSHR, 2132-9, 2276-4, FEPR, 2284-8, 03732-4 #### [facility] ([id number]) [address], [address] [place] [address] #### 06293-8 #### [facility] ([id number]) [address] [place] [address] 88506 Hematocrit (Bld) [Volume fraction] 28.4 % Low 35-47 [facility] Comment on above: Performed By: #### C BCA, HA1C, CMP, TSHR, 2132-9, 2276-4, FEPR, 2284-8, 13187-6 #### [facility] ([id number]) [address], [address] [place] [address] #### 94336-6 #### [facility] ([id number]) [address] [place] [address] 50650 Hemoglobin (Bld) [Mass/Vol] 9.6 g/dL Low 11.7-15.5 [facility] Comment on above: Performed By: #### C BCA, HA1C, CMP, TSHR, 2132-9, 2276-4, FEPR, 2284-8, 78918-5 #### [facility] ([id number]) [address], [address] [place] [address] #### 37115-5 #### [facility] ([id number]) [address] [place] [address] 43529 MCH (RBC) [Entitic mass] 28.7 pg Normal 27-34 [facility] Comment on above: Performed By: #### C BCA, HA1C, CMP, TSHR, 2-9, 2276-4, FEPR, 2284-8, 60151-7 #### [facility] ([id number]) [address], [address] [place] [address] #### 18028-0 #### [facility] ([id number]) [address] [place] [address] 81163 MCHC (RBC) [Mass/Vol] 33.8 g/dL Normal 32-36 [facility] Comment on above: Performed By: #### C BCA, HA1C, CMP, TSHR, 2131-9, 6-4, FEPR, 2284-8, 71360-9 #### [facility] ([id number]) [address], [address] [place] [address] #### 39373-8 #### [facility] ([id number]) [address] [place] [address] 04391 MCV (RBC) [Entitic vol] 85 fL Normal 80-100 [facility] Comment on above: Performed By: #### C BCA, HA1C, CMP, TSHR, 2131-9, 2276-4, FEPR, 2284-8, 20381-1 #### [facility] ([id number]) [address], [address] [place] [address] #### 18850-2 #### [facility] ([id number]) [address] [place] [address] 71814 Platelet mean volume (Bld) [Entitic vol] 8.7 fL Normal 7-12 [facility] Comment on above: Performed By: #### C BCA, HA1C, CMP, TSHR, 2-9, 2276-4, FEPR, 2284-8, 23894-4 #### [facility] ([id number]) [address], [address] [place] [address] #### 22948-9 #### [facility] ([id number]) [address] [place] [address] 43149 Platelets (Bld) [#/Vol] 250 10*3/uL Normal 150-450 [facility] Comment on above: Performed By: #### C BCA, HA1C, CMP, TSHR, 2132-9, 2276-4, FEPR, 2284-8, 50760-6 #### [facility] ([id number]) [address] [facility], [address] [place] [address] #### 93357-8 #### [facility] ([id number]) [address] [place] [address] 58902 RBC COUNT 3.34 X10E12/L Low 3.8-5.2 [facility] Comment on above: Performed By: #### C BCA, HA1C, CMP, TSHR, 2-9, 2276-4, FEPR, 2284-8, 08311-3 #### [facility] ([id number]) [address] [facility], [facility] [address] [place] [address] #### 79999-1 #### [facility] ([id number]) [address] [place] [address] 35923 WBC (Bld) [#/Vol] 5.9 10*3/uL Normal 4-11 [facility] Comment on above: Performed By: #### C BCA, HA1C, CMP, TSHR, 2132-9, 2276-4, FEPR, 2284-8, 65107-8 #### [facility] ([id number]) [address] [facility], [address] [place] [address] #### 64989-5 #### [facility] ([id number]) [address] [place] [address] 05979 COMPREHENSIVE METABOLIC PANE Brock 10-25-2024 Albumin [Mass/Vol] 2.4 g/dL Low 3.2-5.3 [facility] Comment on above: Performed By: #### C BCA, HA1C, CMP, TSHR, 2-9, 2276-4, FEPR, 2284-8, 47410-0 #### [facility] ([id number]) [address] [facility], [address] [place] [address] #### 40719-9 #### [facility] ([id number]) [address] [place] [address] 53141 ALP [Catalytic activity/Vol] 144 U/L High 39-130 [facility] Comment on above: Performed By: #### C BCA, HA1C, CMP, TSHR, 2131-9, 6-4, FEPR, 2284-8, 90141-8 #### [facility] ([id number]) [facility] [facility], [address] [place] [address] #### 94463-1 #### [facility] ([id number]) [address] [place] [address] 07878 ALT [Catalytic activity/Vol] 120 U/L High <=31 [facility] Comment on above: Performed By: #### C BCA, HA1C, CMP, TSHR, 2131-, 6-4, FEPR, 2284-8, 17164-3 #### [facility] ([id number]) [address] [facility], [address] [place] [address] #### 12115-0 #### [facility] ([id number]) [address] [place] [address] 51366 Anion gap [Moles/Vol] 5 mmol/L Normal 5-15 [facility] Comment on above: Performed By: #### C BCA, HA1C, CMP, TSHR, 2131-9, 6-4, FEPR, 2284-8, 41945-0 #### [facility] ([id number]) [address], [address] [place] [address] #### 23351-6 #### [facility] ([id number]) [address] [place] [address] 92903 AST [Catalytic activity/Vol] 74 U/L High <=41 [facility] Comment on above: Performed By: #### C BCA, HA1C, CMP, TSHR, 2131-9, 6-4, FEPR, 2284-8, 09020-6 #### [facility] ([id number]) [address], [address] [place] [address] #### 20223-5 #### [facility] ([id number]) [address] [place] [address] 50094 Bilirubin [Mass/Vol] 0.9 mg/dL Normal 0.3-1.2 [facility] Comment on above: Performed By: #### C BCA, HA1C, CMP, TSHR, 2131-10, 6-4, FEPR, 2284-8, 93319-1 #### [facility] ([id number]) [address], [address] [place] [address] #### 14300-5 #### [facility] ([id number]) [address] [place] [address] 79311 Calcium [Mass/Vol] 7.9 mg/dL Low 8.5-10.5 [facility] Comment on above: Performed By: #### C BCA, HA1C, CMP, TSHR, 2131-10, 6-4, FEPR, 2284-8, 30173-5 #### [facility] ([id number]) [address], [address] [place] [address] #### 34541-2 #### [facility] ([id number]) [address] [place] [address] 68165 Chloride [Moles/Vol] 102 mmol/L Normal 98-109 [facility] Comment on above: Performed By: #### C BCA, HA1C, CMP, TSHR, 2-9, 2276-4, FEPR, 2284-8, 00197-9 #### [facility] ([id number]) [address], [address] [place] [address] #### 54208-8 #### [facility] ([id number]) [address] [place] [address] 45915 CO2 [Moles/Vol] 24 mmol/L Normal 22-32 [facility] Comment on above: Performed By: #### C BCA, HA1C, CMP, TSHR, 2131-9, 2276-4, FEPR, 2284-8, 06075-7 #### [facility] ([id number]) [address] [facility], [address] [place] [address] #### 64663-2 #### [facility] ([id number]) [address] [place] [address] 04203 Creatinine [Mass/Vol] 0.58 mg/dL Normal 0.40-1.00 [facility] Comment on above: Result Comment: METH OD TRACEABLE TO IDMS STANDARD Performed By: #### C BCA, HA1C, CMP, TSHR, 2131-9, 6-4, FEPR, 2284-8, 77261-6 #### [facility] ([id number]) [address] [facility], [address] [place] [address] #### 57153-5 #### [facility] ([id number]) [address] [place] [address] 64755 EGFR (CKD-EPI) NON-RACE DEPENDENT >^90 Normal >=60 [facility] Comment on above: Result Comment: eGFR not reported due to non-numeric value for Creatinine. Reported eGFR is based on the CKD-EPI 2020 equation that does not use a race coefficient. Performed By: #### C BCA, HA1C, CMP, TSHR, 2-9, 2276-4, FEPR, 2284-8, 27092-8 #### [facility] ([id number]) [address], [address] [place] [address] #### 59749-7 #### [facility] ([id number]) [address] [place] [address] 27134 Glucose [Mass/Vol] 128 mg/dL High 65-99 [facility] Comment on above: Performed By: #### C BCA, HA1C, CMP, TSHR, 2131-9, 6-4, FEPR, 4-8, 70999-7 #### [facility] ([id number]) [address], [address] [place] [address] #### 62505-9 #### [facility] ([id number]) [address] [place] [address] 94237 Potassium [Moles/Vol] 3.8 mmol/L Normal 3.5-5.0 [facility] Comment on above: Performed By: #### C BCA, HA1C, CMP, TSHR, 2131-9, 6-4, FEPR, 2284-8, 58181-2 #### [facility] ([id number]) [address], [address] [place] [address] #### 26786-5 #### [facility] ([id number]) [address] [place] [address] 35008 Protein [Mass/Vol] 6.7 g/dL Normal 6.0-8.0 [facility] Comment on above: Performed By: #### C BCA, HA1C, CMP, TSHR, 2131-9, 2276-4, FEPR, 2284-8, 72815-4 #### [facility] ([id number]) [address] [facility], [address] [place] [address] #### 95125-9 #### [facility] ([id number]) [address] [place] [address] 29755 Sodium [Moles/Vol] 131 mmol/L Low 134-146 [facility] Comment on above: Performed By: #### C BCA, HA1C, CMP, TSHR, 2131-9, 2276-4, FEPR, 2284-8, 59550-8 #### [facility] ([id number]) [address] [facility], [address] [place] [address] #### 33527-6 #### [facility] ([id number]) [address] [place] [address] 84740 Urea nitrogen [Mass/Vol] 9 mg/dL Normal 5-27 [facility] Comment on above: Performed By: #### C BCA, HA1C, CMP, TSHR, 2131-10, 6-4, FEPR, 2284-8, 47927-2 #### [facility] ([id number]) [address] [facility], [facility] [address] [place] [address] #### 54045-0 #### [facility] ([id number]) [address] [place] [address] 75073 MAGNESIUMon 10-25-2024 Magnesium [Mass/Vol] 1.7 mg/dL Low 1.8-2.6 [facility] Comment on above: Performed By: #### C BCA, HA1C, CMP, TSHR, 9, 6-4, FEPR, 2284-8, 72482-5 #### [facility] ([id number]) [address] [facility], [address] [place] [address] #### 31022-9 #### [facility] ([id number]) [address] [place] [address] 37191 CBC WITH AUTO DIFFERENTIALon 10-24-2024 CELLAVISION ATYPICAL LYMPHOCYTES RELATIVE PERCENT BY MANUAL COUNT 4 % Normal [facility] Comment on above: Result Comment: This is an appended report. These results have been appended to a previously preliminary verified report. Performed By: #### C BCA, HA1C, CMP, TSHR, 2132-9, 2276-4, FEPR, 2284-8, 14425-6 #### [facility] ([id number]) [address], [address] [place] [address] #### 95595-4 #### [facility] ([id number]) [address] [place] [address] 67441 CELLAVISION DIFFERENTIAL TYPE MANUAL DIFFERENTIAL Normal [facility] Comment on above: Result Comment: This is an appended report. These results have been appended to a previously preliminary verified report. Performed By: #### C BCA, HA1C, CMP, TSHR, 2132-9, 2276-4, FEPR, 2284-8, 59433-8 #### [facility] ([id number]) [address], [address] [place] [address] #### 66840-9 #### [facility] ([id number]) [address] [place] [address] 11796 CELLAVISION ELLIPTOCYTES IN BLOOD BY LIGHT MICROSCOPY 1+ Normal [facility] Comment on above: Result Comment: This is an appended report. These results have been appended to a previously preliminary verified report. Performed By: #### C BCA, HA1C, CMP, TSHR, 2132-9, 2276-4, FEPR, 2284-8, 85534-6 #### [facility] ([id number]) [address], [address] [place] [address] #### 50150-4 #### [facility] ([id number]) [address] [place] [address] 54835 CELLAVISION EOSINOPHILS ABSOLUTE COUNT (10*3/UL) BY MANUAL COUNT 0.2 10*3/uL Normal 0.0-0.4 [facility] Comment on above: Result Comment: This is an appended report. These results have been appended to a previously preliminary verified report. Performed By: #### C BCA, HA1C, CMP, TSHR, 2132-9, 2276-4, FEPR, 2284-8, 44815-6 #### [facility] ([id number]) [address] [facility], [address] [place] [address] #### 27171-3 #### [facility] ([id number]) [address] [place] [address] 19586 CELLAVISION EOSINOPHILS PERCENT BY MANUAL COUNT 4 % Normal [facility] Comment on above: Result Comment: This is an appended report. These results have been appended to a previously preliminary verified report. Performed By: #### C BCA, HA1C, CMP, TSHR, 2-9, 2276-4, FEPR, 2284-8, 84911-3 #### [facility] ([id number]) [address] [place] [address], [address] [place] [address] #### 70919-0 #### [facility] ([id number]) [address] [place] [address] 10133 CELLAVISION LYMPHOCYTES ABSOLUTE COUNT (10*3/UL) BY MANUAL COUNT 1.8 10*3/uL Normal 1.0-3.5 [facility] Comment on above: Result Comment: This is an appended report. These results have been appended to a previously preliminary verified report. Performed By: #### C BCA, HA1C, CMP, TSHR, 2132-9, 2276-4, FEPR, 2284-8, 80916-6 #### [facility] ([id number]) [address] [facility], [address] [place] [address] #### 88038-5 #### [facility] ([id number]) [address] [place] [address] CELLAVISION LYMPHOCYTES RELATIVE PERCENT BY MANUAL COUNT 26 % Normal [facility] Comment on above: Result Comment: This is an appended report. These results have been appended to a previously preliminary verified report. Performed By: #### C BCA, HA1C, CMP, TSHR, 2132-9, 2276-4, FEPR, 2284-8, 86769-7 #### [facility] ([id number]) [address], [address] [place] [address] #### 69112-8 #### [facility] ([id number]) [address] [place] [address] 12724 CELLAVISION MONOCYTES ABSOLUTE COUNT (10*3/UL) IN BLOOD BY MANUAL COUNT 0.8 10*3/uL Normal 0.0-0.9 [facility] Comment on above: Result Comment: This is an appended report. These results have been appended to a previously preliminary verified report. Performed By: #### C BCA, HA1C, CMP, TSHR, 2-9, 2276-4, FEPR, 2284-8, 56640-1 #### [facility] ([id number]) [address], [address] [place] [address] #### 94910-6 #### [facility] ([id number]) [address] [place] [address] 73406 CELLAVISION MONOCYTES RELATIVE PERCENT BY MANUAL COUNT 13 % Normal [facility] Comment on above: Result Comment: This is an appended report. These results have been appended to a previously preliminary verified report. Performed By: #### C BCA, HA1C, CMP, TSHR, 2132-9, 2276-4, FEPR, 2284-8, 46737-9 #### [facility] ([id number]) [address], [address] [place] [address] #### 10759-5 #### [facility] ([id number]) [address] [place] [address] 45307 CELLAVISION NEUTROPHILS ABSOLUTE COUNT BY MANUAL COUNT 3.2 10*3/uL Normal 1.5-6.6 [facility] Comment on above: Result Comment: This is an appended report. These results have been appended to a previously preliminary verified report. Performed By: #### C BCA, HA1C, CMP, TSHR, 2132-9, 2276-4, FEPR, 2284-8, 31490-7 #### [facility] ([id number]) [address], [address] [place] [address] #### 09077-4 #### [facility] ([id number]) [address] [place] [address] 26037 CELLAVISION NEUTROPHILS RELATIVE PERCENT BY MANUAL COUNT 53 % Normal [facility] Comment on above: Result Comment: This is an appended report. These results have been appended to a previously preliminary verified report. Performed By: #### C BCA, HA1C, CMP, TSHR, 2-9, 2276-4, FEPR, 2284-8, 77713-7 #### [facility] ([id number]) [address], [address] [place] [address] #### 86819-5 #### [facility] ([id number]) [address] [place] [address] 42577 Erythrocyte distribution width (RBC) [Ratio] 20.4 % High 11.5-15 [facility] Comment on above: Performed By: #### C BCA, HA1C, CMP, TSHR, 2132-9, 2276-4, FEPR, 2284-8, 45068-7 #### [facility] ([id number]) [address], [address] [place] [address] #### 41334-5 #### [facility] ([id number]) [address] [place] [address] 60874 Hematocrit (Bld) [Volume fraction] 27.6 % Low 35-47 [facility] Comment on above: Performed By: #### C BCA, HA1C, CMP, TSHR, 2131-9, 6-4, FEPR, 2284-8, 85468-8 #### [facility] ([id number]) [address], [address] [place] [address] #### 07704-4 #### [facility] ([id number]) [address] [place] [address] 62220 Hemoglobin (Bld) [Mass/Vol] 9.4 g/dL Low 11.7-15.5 [facility] Comment on above: Performed By: #### C BCA, HA1C, CMP, TSHR, 2131-10, 6-4, FEPR, 4-8, 65052-0 #### [facility] ([id number]) [address], [address] [place] [address] #### 24414-8 #### [facility] ([id number]) [address] [place] [address] 45154 MCH (RBC) [Entitic mass] 28.9 pg Normal 27-34 [facility] Comment on above: Performed By: #### C BCA, HA1C, CMP, TSHR, 2131-10, 6-4, FEPR, 4-8, 80545-8 #### [facility] ([id number]) [address], [address] [place] [address] #### 97001-1 #### [facility] ([id number]) [address] [place] [address] 67438 MCHC (RBC) [Mass/Vol] 33.8 g/dL Normal 32-36 [facility] Comment on above: Performed By: #### C BCA, HA1C, CMP, TSHR, 2131-10, 6-4, FEPR, 2284-8, 10678-9 #### [facility] ([id number]) [address], [address] [place] [address] #### 73394-2 #### [facility] ([id number]) [address] [place] [address] MCV (RBC) [Entitic vol] 85 fL Normal 80-100 [facility] Comment on above: Performed By: #### C BCA, HA1C, CMP, TSHR, 2131-10, 6-4, FEPR, 4-8, 99716-0 #### [facility] ([id number]) [address], [address] [place] [address] #### 59132-8 #### [facility] ([id number]) [address] [place] [address] Platelet mean volume (Bld) [Entitic vol] 9.4 fL Normal 7-12 [facility] Comment on above: Performed By: #### C BCA, HA1C, CMP, TSHR, 2131-10, 2275-4, FEPR, 4-8, 67805-6 #### [facility] ([id number]) [address], [address] [place] [address] #### 34667-5 #### [facility] ([id number]) [address] [place] [address] Platelets (Bld) [#/Vol] 201 10*3/uL Normal 150-450 [facility] Comment on above: Performed By: #### C BCA, HA1C, CMP, TSHR, 2131-10, 2275-4, FEPR, 4-8, 97924-0 #### [facility] ([id number]) [address], [address] [place] [address] #### 43602-4 #### [facility] ([id number]) [address] [place] [address] RBC COUNT 3.24 X10E12/L Low 3.8-5.2 [facility] Comment on above: Performed By: #### C BCA, HA1C, CMP, TSHR, 2-9, 2276-4, FEPR, 2284-8, 64839-3 #### [facility] ([id number]) [address] [place] [address], [address] [place] [address] #### 48522-9 #### [facility] ([id number]) [address] [place] [address] WBC (Bld) [#/Vol] 6.0 10*3/uL Normal 4-11 [facility] Comment on above: Performed By: #### C BCA, HA1C, CMP, TSHR, 2131-9, 6-4, FEPR, 2284-8, 80697-8 #### [facility] ([id number]) [address] [place] [address], [address] [place] [address] #### 81369-7 #### [facility] ([id number]) [address] [place] [address] COMPREHENSIVE METABOLIC PANE Brock 10-24-2024 Albumin [Mass/Vol] 2.3 g/dL Low 3.2-5.3 [facility] Comment on above: Performed By: #### C BCA, HA1C, CMP, TSHR, 2131-9, 6-4, FEPR, 2284-8, 59090-5 #### [facility] ([id number]) [address] [place] [address], [address] [place] [address] #### 60395-3 #### [facility] ([id number]) [address] [place] [address] ALP [Catalytic activity/Vol] 144 U/L High 39-130 [facility] Comment on above: Performed By: #### C BCA, HA1C, CMP, TSHR, 2-9, 2276-4, FEPR, 2284-8, 28094-1 #### [facility] ([id number]) [address] [facility], [address] [place] [address] #### 17278-1 #### [facility] ([id number]) [address] [place] [address] 12162 ALT [Catalytic activity/Vol] 145 U/L High <=31 [facility] Comment on above: Performed By: #### C BCA, HA1C, CMP, TSHR, 2131-9, 2276-4, FEPR, 2284-8, 06349-6 #### [facility] ([id number]) [address] [facility], [address] [place] [address] #### 44825-2 #### [facility] ([id number]) [address] [place] [address] Anion gap [Moles/Vol] 7 mmol/L Normal 5-15 [facility] Comment on above: Performed By: #### C BCA, HA1C, CMP, TSHR, 2131-9, 2276-4, FEPR, 2284-8, 99883-2 #### [facility] ([id number]) [address] [facility], [address] [place] [address] #### 71019-8 #### [facility] ([id number]) [address] [place] [address] 79078 AST [Catalytic activity/Vol] 118 U/L High <=41 [facility] Comment on above: Performed By: #### C BCA, HA1C, CMP, TSHR, 2131-9, 2276-4, FEPR, 2284-8, 95019-1 #### [facility] ([id number]) [address] [facility], [address] [place] [address] #### 87318-2 #### [facility] ([id number]) [address] [place] [address] 67458 Bilirubin [Mass/Vol] 0.8 mg/dL Normal 0.3-1.2 [facility] Comment on above: Performed By: #### C BCA, HA1C, CMP, TSHR, 2-9, 2276-4, FEPR, 2284-8, 59335-2 #### [facility] ([id number]) [address] [facility], [address] [place] [address] #### 05231-7 #### [facility] ([id number]) [address] [place] [address] 98360 Calcium [Mass/Vol] 8.1 mg/dL Low 8.5-10.5 [facility] Comment on above: Performed By: #### C BCA, HA1C, CMP, TSHR, 2131-10, 6-4, FEPR, 2284-8, 33990-8 #### [facility] ([id number]) [address] [facility], [address] [place] [address] #### 46098-7 #### [facility] ([id number]) [address] [place] [address] 94651 Chloride [Moles/Vol] 104 mmol/L Normal 98-109 [facility] Comment on above: Performed By: #### C BCA, HA1C, CMP, TSHR, 2131-9, 2276-4, FEPR, 2284-8, 31281-4 #### [facility] ([id number]) [address] [facility], [address] [place] [address] #### 26220-0 #### [facility] ([id number]) [address] [place] [address] 86178 CO2 [Moles/Vol] 24 mmol/L Normal 22-32 [facility] Comment on above: Performed By: #### C BCA, HA1C, CMP, TSHR, 9, 6-4, FEPR, 2284-8, 42545-1 #### [facility] ([id number]) [address] [place] [address], [address] [address] #### 17193-5 #### [facility] ([id number]) [address] [place] [address] 88453 Creatinine [Mass/Vol] 0.56 mg/dL Normal 0.40-1.00 [facility] Comment on above: Result Comment: METH OD TRACEABLE TO IDMS STANDARD Performed By: #### C BCA, HA1C, CMP, TSHR, 2131-10, 6-4, FEPR, 4-8, 52458-1 #### [facility] ([id number]) [address] [place] [address] #### 99420-9 #### [facility] ([id number]) [address] [place] [address] 28588 EGFR (CKD-EPI) NON-RACE DEPENDENT >^90 Normal >=60 [facility] Comment on above: Result Comment: eGFR not reported due to non-numeric value for Creatinine. Reported eGFR is based on the CKD-EPI 2021 equation that does not use a race coefficient. Performed By: #### C BCA, HA1C, CMP, TSHR, 2131-10, 2275-4, FEPR, 4-8, 88124-4 #### [facility] ([id number]) [address] [place] [address], [facility] [address] [place] [address] #### 93100-8 #### [facility] ([id number]) [address] [place] [address] 62381 Glucose [Mass/Vol] 102 mg/dL High 65-99 [facility] Comment on above: Performed By: #### C BCA, HA1C, CMP, TSHR, 2131-10, 6-4, FEPR, 2284-8, 19149-5 #### [facility] ([id number]) [address], [address] [place] [address] #### 63700-3 #### [facility] ([id number]) [address] [place] [address] 76223 Potassium [Moles/Vol] 3.8 mmol/L Normal 3.5-5.0 [facility] Comment on above: Performed By: #### C BCA, HA1C, CMP, TSHR, 2131-, 6-4, FEPR, 2284-8, 45947-9 #### [facility] ([id number]) [address], [address] [place] [address] #### 35219-7 #### [facility] ([id number]) [address] [place] [address] 16403 Protein [Mass/Vol] 6.3 g/dL Normal 6.0-8.0 [facility] Comment on above: Performed By: #### C BCA, HA1C, CMP, TSHR, 2131-10, 6-4, FEPR, 4-8, 34356-0 #### [facility] ([id number]) [address], [address] [place] [address] #### 22739-4 #### [facility] ([id number]) [address] [place] [address] 98858 Sodium [Moles/Vol] 135 mmol/L Normal 134-146 [facility] Comment on above: Performed By: #### C BCA, HA1C, CMP, TSHR, 2131-10, 6-4, FEPR, 2284-8, 58627-1 #### [facility] ([id number]) [address], [address] [place] [address] #### 59471-6 #### [facility] ([id number]) [address] [place] [address] 57099 Urea nitrogen [Mass/Vol] 9 mg/dL Normal 5-27 [facility] Comment on above: Performed By: #### C BCA, HA1C, CMP, TSHR, 2132-9, 2276-4, FEPR, 2284-8, 29082-8 #### [facility] ([id number]) [address] [place] [address], [address] [place] [address] #### 13464-6 #### [facility] ([id number]) [address] [place] [address] 18141 MAGNESIUMon 10-24-2024 Magnesium [Mass/Vol] 1.6 mg/dL Low 1.8-2.6 [facility] Comment on above: Performed By: #### C BCA, HA1C, CMP, TSHR, 9, 2276-4, FEPR, 2284-8, 78113-3 #### [facility] ([id number]) [address] [place] [address], [address] [place] [address] #### 32605-2 #### [facility] ([id number]) [address] [place] [address] 50346 PHOSPHORUSon 10-24-2024 Phosphate [Mass/Vol] 2.4 mg/dL Normal 2.4-4.9 [facility] Comment on above: Performed By: #### C BCA, HA1C, CMP, TSHR, 2131-9, 2276-4, FEPR, 2284-8, 75503-6 #### [facility] ([id number]) [address] [place] [address], [address] [place] [address] #### 42540-3 #### [facility] ([id number]) [address] [place] [address] 92926 BEDSIDE GLUCOSEon 10-23-2024 Glucose [Mass/Vol] 90 mg/dL Normal 65-99 [facility] Comment on above: Performed By: #### C BCA, HA1C, CMP, TSHR, 2132-9, 2276-4, FEPR, 2284-8, 88792-5 #### [facility] ([id number]) [address] [place] [address], [facility] [address] [place] [address] #### 38697-0 #### [facility] ([id number]) [address] [place] [address] 66992 CBC WITH AUTO DIFFERENTIALon 10-23-2024 CELLAVISION ATYPICAL LYMPHOCYTES RELATIVE PERCENT BY MANUAL COUNT 3 % Normal [facility] Comment on above: Result Comment: This is an appended report. These results have been appended to a previously preliminary verified report. Performed By: #### C BCA, HA1C, CMP, TSHR, 2132-9, 2276-4, FEPR, 2284-8, 81858-2 #### [facility] ([id number]) [address] [place] [address], [address] [address] #### 93822-1 #### [facility] ([id number]) [address] [place] [address] 22911 CELLAVISION BASOPHILS ABSOLUTE COUNT (10*3/UL) BY MANUAL COUNT 0.1 10*3/uL Normal 0.0-0.2 [facility] Comment on above: Result Comment: This is an appended report. These results have been appended to a previously preliminary verified report. Performed By: #### C BCA, HA1C, CMP, TSHR, 2132-9, 2276-4, FEPR, 2284-8, 33440-6 #### [facility] ([id number]) [address] [place] [address], [address] [place] [address] #### 02398-7 #### [facility] ([id number]) [address] [place] [address] 37287 CELLAVISION BASOPHILS RELATIVE PERCENT BY MANUAL COUNT 1 % Normal [facility] Comment on above: Result Comment: This is an appended report. These results have been appended to a previously preliminary verified report. Performed By: #### C BCA, HA1C, CMP, TSHR, 2132-9, 2276-4, FEPR, 2284-8, 24131-9 #### [facility] ([id number]) [address], [address] [place] [address] #### 18657-2 #### [facility] ([id number]) [address] [place] [address] 85585 CELLAVISION DIFFERENTIAL TYPE MANUAL DIFFERENTIAL Normal [facility] Comment on above: Result Comment: This is an appended report. These results have been appended to a previously preliminary verified report. Performed By: #### C BCA, HA1C, CMP, TSHR, 2132-9, 2276-4, FEPR, 2284-8, 34990-0 #### [facility] ([id number]) [address], [address] [place] [address] #### 46472-3 #### [facility] ([id number]) [address] [place] [address] 96714 CELLAVISION ELLIPTOCYTES IN BLOOD BY LIGHT MICROSCOPY 1+ Normal [facility] Comment on above: Result Comment: This is an appended report. These results have been appended to a previously preliminary verified report. Performed By: #### C BCA, HA1C, CMP, TSHR, 2132-9, 2276-4, FEPR, 2284-8, 47232-9 #### [facility] ([id number]) [address], [address] [place] [address] #### 61274-7 #### [facility] ([id number]) [address] [place] [address] 70288 CELLAVISION EOSINOPHILS ABSOLUTE COUNT (10*3/UL) BY MANUAL COUNT 0.1 10*3/uL Normal 0.0-0.4 [facility] Comment on above: Result Comment: This is an appended report. These results have been appended to a previously preliminary verified report. Performed By: #### C BCA, HA1C, CMP, TSHR, 2132-9, 2276-4, FEPR, 2284-8, 49349-9 #### [facility] ([id number]) [address], [address] [place] [address] #### 36603-8 #### [facility] ([id number]) [address] [place] [address] CELLAVISION EOSINOPHILS PERCENT BY MANUAL COUNT 2 % Normal [facility] Comment on above: Result Comment: This is an appended report. These results have been appended to a previously preliminary verified report. Performed By: #### C BCA, HA1C, CMP, TSHR, 2132-9, 2276-4, FEPR, 2284-8, 02287-3 #### [facility] ([id number]) [address], [address] [place] [address] #### 70677-6 #### [facility] ([id number]) [address] [place] [address] 75493 CELLAVISION LYMPHOCYTES ABSOLUTE COUNT (10*3/UL) BY MANUAL COUNT 2.0 10*3/uL Normal 1.0-3.5 [facility] Comment on above: Result Comment: This is an appended report. These results have been appended to a previously preliminary verified report. Performed By: #### C BCA, HA1C, CMP, TSHR, 2132-9, 2276-4, FEPR, 2284-8, 97933-7 #### [facility] ([id number]) [address], [address] [place] [address] #### 46645-8 #### [facility] ([id number]) [address] [place] [address] CELLAVISION LYMPHOCYTES RELATIVE PERCENT BY MANUAL COUNT 30 % Normal [facility] Comment on above: Result Comment: This is an appended report. These results have been appended to a previously preliminary verified report. Performed By: #### C BCA, HA1C, CMP, TSHR, 2132-9, 2276-4, FEPR, 2284-8, 34230-2 #### [facility] ([id number]) [address], [address] [place] [address] #### 07938-4 #### [facility] ([id number]) [address] [place] [address] 97154 CELLAVISION MONOCYTES ABSOLUTE COUNT (10*3/UL) IN BLOOD BY MANUAL COUNT 0.7 10*3/uL Normal 0.0-0.9 [facility] Comment on above: Result Comment: This is an appended report. These results have been appended to a previously preliminary verified report. Performed By: #### C BCA, HA1C, CMP, TSHR, 2131-9, 2276-4, FEPR, 2284-8, 21663-5 #### [facility] ([id number]) [address], [address] [place] [address] #### 24114-8 #### [facility] ([id number]) [address] [place] [address] 69358 CELLAVISION MONOCYTES RELATIVE PERCENT BY MANUAL COUNT 11 % Normal [facility] Comment on above: Result Comment: This is an appended report. These results have been appended to a previously preliminary verified report. Performed By: #### C BCA, HA1C, CMP, TSHR, 2131-9, 6-4, FEPR, 2284-8, 39391-2 #### [facility] ([id number]) [address], [address] [place] [address] #### 70111-6 #### [facility] ([id number]) [address] [place] [address] CELLAVISION NEUTROPHILS ABSOLUTE COUNT BY MANUAL COUNT 3.2 10*3/uL Normal 1.5-6.6 [facility] Comment on above: Result Comment: This is an appended report. These results have been appended to a previously preliminary verified report. Performed By: #### C BCA, HA1C, CMP, TSHR, 2132-9, 2276-4, FEPR, 2284-8, 39037-0 #### [facility] ([id number]) [address], [address] [place] [address] #### 89669-2 #### [facility] ([id number]) [address] [place] [address] 51704 CELLAVISION NEUTROPHILS RELATIVE PERCENT BY MANUAL COUNT 53 % Normal [facility] Comment on above: Result Comment: This is an appended report. These results have been appended to a previously preliminary verified report. Performed By: #### C BCA, HA1C, CMP, TSHR, 2132-9, 2276-4, FEPR, 2284-8, 25503-1 #### [facility] ([id number]) [address] [facility], [address] [place] [address] #### 40919-4 #### [facility] ([id number]) [address] [place] [address] 86619 Erythrocyte distribution width (RBC) [Ratio] 19.9 % High 11.5-15 [facility] Comment on above: Performed By: #### C BCA, HA1C, CMP, TSHR, 2132-9, 2276-4, FEPR, 2284-8, 18841-3 #### [facility] ([id number]) [address] [facility] [address], [address] [place] [address] #### 47328-1 #### [facility] ([id number]) [address] [place] [address] 44622 Hematocrit (Bld) [Volume fraction] 26.5 % Low 35-47 [facility] Comment on above: Performed By: #### C BCA, HA1C, CMP, TSHR, 2-9, 2276-4, FEPR, 2284-8, 25089-0 #### [facility] ([id number]) [address], [address] [place] [address] #### 11564-3 #### [facility] ([id number]) [address] [place] [address] 88408 Hemoglobin (Bld) [Mass/Vol] 9.0 g/dL Low 11.7-15.5 [facility] Comment on above: Performed By: #### C BCA, HA1C, CMP, TSHR, 2-9, 2276-4, FEPR, 2284-8, 75204-7 #### [facility] ([id number]) [address], [facility] [address] [place] [address] #### 20202-3 #### [facility] ([id number]) [address] [place] [address] 13313 MCH (RBC) [Entitic mass] 29.4 pg Normal 27-34 [facility] Comment on above: Performed By: #### C BCA, HA1C, CMP, TSHR, 2-9, 2276-4, FEPR, 2284-8, 57102-4 #### [facility] ([id number]) [address], [address] [place] [address] #### 69598-9 #### [facility] ([id number]) [address] [place] [address] 68710 MCHC (RBC) [Mass/Vol] 34.1 g/dL Normal 32-36 [facility] Comment on above: Performed By: #### C BCA, HA1C, CMP, TSHR, 2-9, 2276-4, FEPR, 2284-8, 68345-2 #### [facility] ([id number]) [address] [facility], [facility] [address] [place] [address] #### 49938-6 #### [facility] ([id number]) [address] [place] [address] 92331 MCV (RBC) [Entitic vol] 86 fL Normal 80-100 [facility] Comment on above: Performed By: #### C BCA, HA1C, CMP, TSHR, 2131-9, 2276-4, FEPR, 2284-8, 57382-0 #### [facility] ([id number]) [address] [facility], [facility] [address] [place] [address] #### 65741-1 #### [facility] ([id number]) [address] [place] [address] 60729 Platelet mean volume (Bld) [Entitic vol] 9.6 fL Normal 7-12 [facility] Comment on above: Performed By: #### C BCA, HA1C, CMP, TSHR, 2131-10, 6-4, FEPR, 2284-8, 06173-6 #### [facility] ([id number]) [address] [place] [address], [address] [address] #### 22282-7 #### [facility] ([id number]) [address] [place] [address] 80352 Platelets (Bld) [#/Vol] 179 10*3/uL Normal 150-450 [facility] Comment on above: Performed By: #### C BCA, HA1C, CMP, TSHR, 9, 6-4, FEPR, 2284-8, 47761-6 #### [facility] ([id number]) [address] [facility], [address] [place] [address] #### 70817-2 #### [facility] ([id number]) [address] [place] [address] 85920 RBC COUNT 3.08 X10E12/L Low 3.8-5.2 [facility] Comment on above: Performed By: #### C BCA, HA1C, CMP, TSHR, 2131-10, 2275-, FEPR, 2283-8, 98983-7 #### [facility] ([id number]) [address] [facility], [address] [place] [address] #### 37845-6 #### [facility] ([id number]) [address] [place] [address] 44289 WBC (Bld) [#/Vol] 6.1 10*3/uL Normal 4-11 [facility] Comment on above: Performed By: #### C BCA, HA1C, CMP, TSHR, 2131-10, 2275-05, FEPR, 2283-09, 23532-0 #### [facility] ([id number]) [address] [facility], [address] [place] [address] #### 77453-9 #### [facility] ([id number]) [address] [place] [address] 41651 COMPREHENSIVE METABOLIC PANE Brock 10-23-2024 Albumin [Mass/Vol] 2.2 g/dL Low 3.2-5.3 [facility] Comment on above: Performed By: #### C BCA, HA1C, CMP, TSHR, 2131-10, 2275-05, FEPR, 2283-, 65439-5 #### [facility] ([id number]) [address] [facility], [address] [place] [address] #### 96552-1 #### [facility] ([id number]) [address] [place] [address] 57534 ALP [Catalytic activity/Vol] 134 U/L High 39-130 [facility] Comment on above: Performed By: #### C BCA, HA1C, CMP, TSHR, 2131-10, 2275-05, FEPR, 2284-8, 99429-9 #### [facility] ([id number]) [address], [address] [place] [address] #### 03514-2 #### [facility] ([id number]) [address] [place] [address] 83364 ALT [Catalytic activity/Vol] 141 U/L High <=31 [facility] Comment on above: Performed By: #### C BCA, HA1C, CMP, TSHR, 2-9, 2276-4, FEPR, 4-8, 89369-2 #### [facility] ([id number]) [address], [address] [place] [address] #### 08488-5 #### [facility] ([id number]) [address] [place] [address] 09421 Anion gap [Moles/Vol] 6 mmol/L Normal 5-15 [facility] Comment on above: Performed By: #### C BCA, HA1C, CMP, TSHR, 2131-9, 2276-4, FEPR, 4-8, 40387-1 #### [facility] ([id number]) [address], [address] [place] [address] #### 50626-6 #### [facility] ([id number]) [address] [place] [address] 19977 AST [Catalytic activity/Vol] 126 U/L High <=41 [facility] Comment on above: Performed By: #### C BCA, HA1C, CMP, TSHR, 2131-9, 6-4, FEPR, 2284-8, 66790-7 #### [facility] ([id number]) [address], [address] [place] [address] #### 83871-9 #### [facility] ([id number]) [address] [place] [address] 50457 Bilirubin [Mass/Vol] 0.9 mg/dL Normal 0.3-1.2 [facility] Comment on above: Performed By: #### C BCA, HA1C, CMP, TSHR, 2131-9, 2276-4, FEPR, 2284-8, 95571-3 #### [facility] ([id number]) [address] [facility], [address] [place] [address] #### 46398-4 #### [facility] ([id number]) [address] [place] [address] 07610 Calcium [Mass/Vol] 7.9 mg/dL Low 8.5-10.5 [facility] Comment on above: Performed By: #### C BCA, HA1C, CMP, TSHR, 2131-10, 6-4, FEPR, 2284-8, 38223-1 #### [facility] ([id number]) [address] [facility], [address] [place] [address] #### 73769-7 #### [facility] ([id number]) [address] [place] [address] 64505 Chloride [Moles/Vol] 106 mmol/L Normal 98-109 [facility] Comment on above: Performed By: #### C BCA, HA1C, CMP, TSHR, 2131-10, 6-4, FEPR, 2284-8, 42489-9 #### [facility] ([id number]) [address] [facility], [address] [place] [address] #### 64324-7 #### [facility] ([id number]) [address] [place] [address] 03387 CO2 [Moles/Vol] 24 mmol/L Normal 22-32 [facility] Comment on above: Performed By: #### C BCA, HA1C, CMP, TSHR, 2131-10, 6-4, FEPR, 2284-8, 96260-0 #### [facility] ([id number]) [address] [place] [address], [facility] [address] [place] [address] #### 52309-1 #### [facility] ([id number]) [address] [place] [address] Creatinine [Mass/Vol] 0.55 mg/dL Normal 0.40-1.00 [facility] Comment on above: Result Comment: METH OD TRACEABLE TO IDMS STANDARD Performed By: #### C BCA, HA1C, CMP, TSHR, 2-9, 2276-4, FEPR, 2284-8, 19135-3 #### [facility] ([id number]) [address] [place] [address] #### 39788-0 #### [facility] ([id number]) [address] [place] [address] EGFR (CKD-EPI) NON-RACE DEPENDENT >^90 Normal >=60 [facility] Comment on above: Result Comment: eGFR not reported due to non-numeric value for Creatinine. Reported eGFR is based on the CKD-EPI 2020 equation that does not use a race coefficient. Performed By: #### C BCA, HA1C, CMP, TSHR, 2-9, 6-4, FEPR, 2284-8, 28086-8 #### [facility] ([id number]) [address] [place] [address], [address] [place] [address] #### [id number] #### [facility] ([id number]) [address] [place] [address]659 Glucose [Mass/Vol] 89 mg/dL Normal 65-99 [facility] Comment on above: Performed By: #### C BCA, HA1C, CMP, TSHR, 2132-9, 2276-4, FEPR, 2284-8, 55618-8 #### [facility] ([id number]) [address], [address] [place] [address] #### [id number] #### [facility] ([id number]) [address] [place] [address]9550 Potassium [Moles/Vol] 3.9 mmol/L Normal 3.5-5.0 [facility] Comment on above: Performed By: #### C BCA, HA1C, CMP, TSHR, 2-9, 2276-4, FEPR, 2284-8, 07783-8 #### [facility] ([id number]) [address], [address] [place] [address] #### [id number] #### [facility] ([id number]) [address] [place] [address]6770 Protein [Mass/Vol] 5.9 g/dL Low 6.0-8.0 [facility] Comment on above: Performed By: #### C BCA, HA1C, CMP, TSHR, 2131-9, 6-4, FEPR, 2284-8, 38982-2 #### [facility] ([id number]) [address] [facility], [address] [place] [address] #### 30430-7 #### [facility] ([id number]) [address] [place] [address] 52095 Sodium [Moles/Vol] 136 mmol/L Normal 134-146 [facility] Comment on above: Performed By: #### C BCA, HA1C, CMP, TSHR, 2131-9, 2276-4, FEPR, 2284-8, 24102-0 #### [facility] ([id number]) [address], [address] [place] [address] #### 75771-9 #### [facility] ([id number]) [address] [place] [address] 99769 Urea nitrogen [Mass/Vol] 10 mg/dL Normal 5-27 [facility] Comment on above: Performed By: #### C BCA, HA1C, CMP, TSHR, 2131-10, 6-4, FEPR, 2284-8, 59566-7 #### [facility] ([id number]) [address], [address] [place] [address] #### 73765-7 #### [facility] ([id number]) [address] [place] [address] MAGNESIUMon 10-23-2024 Magnesium [Mass/Vol] 1.6 mg/dL Low 1.8-2.6 [facility] Comment on above: Performed By: #### C BCA, HA1C, CMP, TSHR, 2131-10, 6-4, FEPR, 4-8, 04269-3 #### [facility] ([id number]) [address], [address] [place] [address] #### 67001-5 #### [facility] ([id number]) [address] [place] [address]8880 OCCULT BLOOD X 1, STOOLon FECAL OCCULT BLOOD Positive Abnormal Negative [facility] Comment on above: Performed By: #### C BCA, HA1C, CMP, TSHR, 2131-10, 6-4, FEPR, 4-8, 18515-0 #### [facility] ([id number]) [address], [address] [place] [address] #### 19786-0 #### [facility] ([id number]) [address] [place] [address] PHOSPHORUSon 10-23-2024 Phosphate [Mass/Vol] 2.5 mg/dL Normal 2.4-4.9 [facility] Comment on above: Performed By: #### C BCA, HA1C, CMP, TSHR, 2131-10, 6-4, FEPR, 2284-8, 85508-0 #### [facility] ([id number]) [address], [address] [place] [address] #### 77337-8 #### [facility] ([id number]) [address] [place] [address]105 BEDSIDE GLUCOSEon 10-22-2024 Glucose [Mass/Vol] 111 mg/dL High 65-99 [facility] Comment on above: Performed By: #### C BCA, HA1C, CMP, TSHR, 2-9, 2276-4, FEPR, 2284-8, 35467-2 #### [facility] ([id number]) [address], [address] [place] [address] #### 88440-4 #### [facility] ([id number]) [address] [place] [address] 33926 Glucose [Mass/Vol] 151 mg/dL High 65-99 [facility] Comment on above: Performed By: #### C BCA, HA1C, CMP, TSHR, 2131-9, 2276-4, FEPR, 2284-8, 32858-8 #### [facility] ([id number]) [address], [address] [place] [address] #### 59769-6 #### [facility] ([id number]) [address] [place] [address] 80643 Glucose [Mass/Vol] 169 mg/dL High 65-99 [facility] Comment on above: Performed By: #### C BCA, HA1C, CMP, TSHR, 2131-9, 2276-4, FEPR, 2284-8, 96891-4 #### [facility] ([id number]) [address], [address] [place] [address] #### 47915-3 #### [facility] ([id number]) [address] [place] [address] Glucose [Mass/Vol] 92 mg/dL Normal 65-99 [facility] Comment on above: Performed By: #### C BCA, HA1C, CMP, TSHR, 2-9, 6-4, FEPR, 2284-8, 46495-2 #### [facility] ([id number]) [address] [facility], [address] [place] [address] #### 59065-7 #### [facility] ([id number]) [address] [place] [address] Glucose [Mass/Vol] 152 mg/dL High 65-99 [facility] Comment on above: Performed By: #### C BCA, HA1C, CMP, TSHR, 2131-9, 6-4, FEPR, 2284-8, 92798-0 #### [facility] ([id number]) [address] [facility], [address] [place] [address] #### 33879-7 #### [facility] ([id number]) [address] [place] [address] 95974 CBC WITH AUTO DIFFERENTIALon 10-22-2024 BASOPHILS ABSOLUTE COUNT (10*3/UL) BY AUTOMATED COUNT 0.0 10*3/uL Normal 0.0-0.2 [facility] Comment on above: Performed By: #### C BCA, HA1C, CMP, TSHR, 2131-9, 6-4, FEPR, 2284-8, 58787-1 #### [facility] ([id number]) [address] [facility], [address] [place] [address] #### 05237-2 #### [facility] ([id number]) [address] [place] [address] 70100 BASOPHILS RELATIVE PERCENT BY AUTOMATED COUNT 0.7 % Normal [facility] Comment on above: Performed By: #### C BCA, HA1C, CMP, TSHR, 2131-9, 6-4, FEPR, 2284-8, 84321-8 #### [facility] ([id number]) [address], [address] [place] [address] #### 90391-4 #### [facility] ([id number]) [address] [place] [address] 98867 CELLAVISION DIFFERENTIAL TYPE AUTOMATED DIFFERENTIAL Normal [facility] Comment on above: Performed By: #### C BCA, HA1C, CMP, TSHR, 2131-, 6-4, FEPR, 2284-8, 16962-7 #### [facility] ([id number]) [address] [facility], [address] [place] [address] #### 52908-1 #### [facility] ([id number]) [address] [place] [address] 64938 Eosinophils (Bld) [#/Vol] 0.1 10*3/uL Normal 0.0-0.4 [facility] Comment on above: Performed By: #### C BCA, HA1C, CMP, TSHR, 2131-10, 6-4, FEPR, 2284-8, 36472-5 #### [facility] ([id number]) [address], [address] [place] [address] #### 52331-1 #### [facility] ([id number]) [address] [place] [address] 61612 EOSINOPHILS RELATIVE PERCENT BY AUTOMATED COUNT 2.5 % Normal [facility] Comment on above: Performed By: #### C BCA, HA1C, CMP, TSHR, 2131-, 6-4, FEPR, 2284-8, 26850-6 #### [facility] ([id number]) [address], [address] [place] [address] #### 04580-6 #### [facility] ([id number]) [address] [place] [address] 29388 Erythrocyte distribution width (RBC) [Ratio] 19.5 % High 11.5-15 [facility] Comment on above: Performed By: #### C BCA, HA1C, CMP, TSHR, 2-9, 2276-4, FEPR, 2284-8, 70667-4 #### [facility] ([id number]) [address], [address] [place] [address] #### 07561-0 #### [facility] ([id number]) [address] [place] [address] 83174 Hematocrit (Bld) [Volume fraction] 20.6 % Low 35-47 [facility] Comment on above: Performed By: #### C BCA, HA1C, CMP, TSHR, 2131-9, 6-4, FEPR, 2284-8, 96711-3 #### [facility] ([id number]) [address], [address] [place] [address] #### 32031-8 #### [facility] ([id number]) [address] [place] [address] 98489 Hemoglobin (Bld) [Mass/Vol] 7.0 g/dL Low 11.7-15.5 [facility] Comment on above: Performed By: #### C BCA, HA1C, CMP, TSHR, 2131-9, 6-4, FEPR, 2284-8, 17895-9 #### [facility] ([id number]) [address], [address] [place] [address] #### 65398-0 #### [facility] ([id number]) [address] [place] [address] 82859 LYMPHOCYTES ABSOLUTE COUNT (10*3/UL) BY AUTOMATED COUNT 1.6 10*3/uL Normal 1.0-3.5 [facility] Comment on above: Performed By: #### C BCA, HA1C, CMP, TSHR, 2-9, 2276-4, FEPR, 2284-8, 55244-8 #### [facility] ([id number]) [address], [address] [place] [address] #### 13223-7 #### [facility] ([id number]) [address] [place] [address] 51999 LYMPHOCYTES RELATIVE PERCENT BY AUTOMATED COUNT 32.0 % Normal [facility] Comment on above: Performed By: #### C BCA, HA1C, CMP, TSHR, 2131-9, 6-4, FEPR, 2284-8, 31533-7 #### [facility] ([id number]) [address], [address] [place] [address] #### 77182-7 #### [facility] ([id number]) [address] [place] [address] 85441 MCH (RBC) [Entitic mass] 30.6 pg Normal 27-34 [facility] Comment on above: Performed By: #### C BCA, HA1C, CMP, TSHR, 2131-9, 6-4, FEPR, 2284-8, 09666-0 #### [facility] ([id number]) [address], [address] [place] [address] #### 70007-4 #### [facility] ([id number]) [address] [place] [address] 42266 MCHC (RBC) [Mass/Vol] 34.2 g/dL Normal 32-36 [facility] Comment on above: Performed By: #### C BCA, HA1C, CMP, TSHR, 2-9, 6-4, FEPR, 2284-8, 11727-0 #### [facility] ([id number]) [address], [address] [place] [address] #### 00827-0 #### [facility] ([id number]) [address] [place] [address] 04995 MCV (RBC) [Entitic vol] 90 fL Normal 80-100 [facility] Comment on above: Performed By: #### C BCA, HA1C, CMP, TSHR, 2132-9, 2276-4, FEPR, 2284-8, 81668-9 #### [facility] ([id number]) [address] [place] [address], [address] [place] [address] #### 45318-6 #### [facility] ([id number]) [address] [place] [address] 51615 MONOCYTES ABSOLUTE COUNT (10*3/UL) BY AUTOMATED COUNT 0.6 10*3/uL Normal 0.0-0.9 [facility] Comment on above: Performed By: #### C BCA, HA1C, CMP, TSHR, 2-9, 6-4, FEPR, 2284-8, 91720-9 #### [facility] ([id number]) [address] [place] [address], [address] [place] [address] #### 14341-0 #### [facility] ([id number]) [address] [place] [address] 32936 MONOCYTES RELATIVE PERCENT BY AUTOMATED COUNT 11.7 % Normal [facility] Comment on above: Performed By: #### C BCA, HA1C, CMP, TSHR, 2-9, 6-4, FEPR, 2284-8, 22218-8 #### [facility] ([id number]) [address] [place] [address], [address] [place] [address] #### 96411-0 #### [facility] ([id number]) [address] [place] [address] 62358 NEUTROPHILS ABSOLUTE COUNT BY AUTOMATED COUNT 2.7 10*3/uL Normal 1.5-6.6 [facility] Comment on above: Performed By: #### C BCA, HA1C, CMP, TSHR, 2132-9, 2276-4, FEPR, 2284-8, 70565-9 #### [facility] ([id number]) [address], [address] [place] [address] #### 23340-0 #### [facility] ([id number]) [address] [place] [address] 23179 NEUTROPHILS RELATIVE PERCENT BY AUTOMATED COUNT 53.1 % Normal [facility] Comment on above: Performed By: #### C BCA, HA1C, CMP, TSHR, 2131-9, 2276-4, FEPR, 2284-8, 74238-9 #### [facility] ([id number]) [address], [address] [place] [address] #### 75570-5 #### [facility] ([id number]) [address] [place] [address] 79804 Platelet mean volume (Bld) [Entitic vol] 9.6 fL Normal 7-12 [facility] Comment on above: Performed By: #### C BCA, HA1C, CMP, TSHR, 2-9, 2276-4, FEPR, 2284-8, 50880-1 #### [facility] ([id number]) [address], [address] [place] [address] #### 24947-5 #### [facility] ([id number]) [address] [place] [address] 41139 Platelets (Bld) [#/Vol] 149 10*3/uL Low 150-450 [facility] Comment on above: Performed By: #### C BCA, HA1C, CMP, TSHR, 2132-9, 2276-4, FEPR, 2284-8, 02620-9 #### [facility] ([id number]) [address], [address] [place] [address] #### 77195-8 #### [facility] ([id number]) [address] [place] [address] 80098 RBC COUNT 2.30 X10E12/L Low 3.8-5.2 [facility] Comment on above: Performed By: #### C BCA, HA1C, CMP, TSHR, 2131-9, 2276-4, FEPR, 2284-8, 10566-6 #### [facility] ([id number]) [address] [facility], [address] [place] [address] #### 44381-4 #### [facility] ([id number]) [address] [place] [address] 68521 WBC (Bld) [#/Vol] 5.1 10*3/uL Normal 4-11 [facility] Comment on above: Performed By: #### C BCA, HA1C, CMP, TSHR, 2131-10, 6-4, FEPR, 2284-8, 79483-7 #### [facility] ([id number]) [address] [facility] [address] [place] [address] #### 67112-4 #### [facility] ([id number]) [address] [place] [address] 72790 COMPREHENSIVE METABOLIC PANE Brock 10-22-2024 Albumin [Mass/Vol] 2.1 g/dL Low 3.2-5.3 [facility] Comment on above: Performed By: #### C BCA, HA1C, CMP, TSHR, 2131-9, 2276-4, FEPR, 2284-8, 88235-2 #### [facility] ([id number]) [address], [address] [place] [address] #### 73430-6 #### [facility] ([id number]) [address] [place] [address] 69129 ALP [Catalytic activity/Vol] 118 U/L Normal 39-130 [facility] Comment on above: Performed By: #### C BCA, HA1C, CMP, TSHR, 2132-9, 2276-4, FEPR, 2284-8, 21829-6 #### [facility] ([id number]) [address], [address] [place] [address] #### 73046-4 #### [facility] ([id number]) [address] [place] [address] ALT [Catalytic activity/Vol] 125 U/L High <=31 [facility] Comment on above: Performed By: #### C BCA, HA1C, CMP, TSHR, 2-9, 2276-4, FEPR, 2284-8, 44329-5 #### [facility] ([id number]) [address] [facility], [address] [place] [address] #### 35919-1 #### [facility] ([id number]) [address] [place] [address] 47057 Anion gap [Moles/Vol] 4 mmol/L Low 5-15 [facility] Comment on above: Performed By: #### C BCA, HA1C, CMP, TSHR, 2-9, 2276-4, FEPR, 2284-8, 53166-7 #### [facility] ([id number]) [address], [address] [place] [address] #### 51319-6 #### [facility] ([id number]) [address] [place] [address] 27074 AST [Catalytic activity/Vol] 61 U/L High <=41 [facility] Comment on above: Performed By: #### C BCA, HA1C, CMP, TSHR, 2132-9, 2276-4, FEPR, 2284-8, 61102-0 #### [facility] ([id number]) [address], [address] [place] [address] #### 49461-0 #### [facility] ([id number]) [address] [place] [address] 53910 Bilirubin [Mass/Vol] 0.9 mg/dL Normal 0.3-1.2 [facility] Comment on above: Performed By: #### C BCA, HA1C, CMP, TSHR, 2-9, 2276-4, FEPR, 2284-8, 63216-1 #### [facility] ([id number]) [address] [facility], [address] [place] [address] #### 12709-1 #### [facility] ([id number]) [address] [place] [address] 34101 Calcium [Mass/Vol] 7.6 mg/dL Low 8.5-10.5 [facility] Comment on above: Performed By: #### C BCA, HA1C, CMP, TSHR, 2131-9, 6-4, FEPR, 2284-8, 05184-1 #### [facility] ([id number]) [address] [facility], [address] [place] [address] #### 82122-1 #### [facility] ([id number]) [address] [place] [address] 24124 Chloride [Moles/Vol] 103 mmol/L Normal 98-109 [facility] Comment on above: Performed By: #### C BCA, HA1C, CMP, TSHR, 2131-9, 2276-4, FEPR, 2284-8, 43201-4 #### [facility] ([id number]) [address] [facility], [address] [place] [address] #### 53988-0 #### [facility] ([id number]) [address] [place] [address] 05159 CO2 [Moles/Vol] 25 mmol/L Normal 22-32 [facility] Comment on above: Performed By: #### C BCA, HA1C, CMP, TSHR, 2-9, 2276-4, FEPR, 2284-8, 84782-6 #### [facility] ([id number]) [address] [facility], [address] [place] [address] #### 32046-7 #### [facility] ([id number]) [address] [place] [address] 40344 Creatinine [Mass/Vol] 0.59 mg/dL Normal 0.40-1.00 [facility] Comment on above: Result Comment: METH OD TRACEABLE TO IDMS STANDARD Performed By: #### C BCA, HA1C, CMP, TSHR, 2131-9, 2276-4, FEPR, 2284-8, 97763-3 #### [facility] ([id number]) [address] [facility], [address] [place] [address] #### 39005-8 #### [facility] ([id number]) [address] [place] [address] 05509 EGFR (CKD-EPI) NON-RACE DEPENDENT >^90 Normal >=60 [facility] Comment on above: Result Comment: eGFR not reported due to non-numeric value for Creatinine. Reported eGFR is based on the CKD-EPI 2020 equation that does not use a race coefficient. Performed By: #### C BCA, HA1C, CMP, TSHR, 2131-9, 2276-4, FEPR, 2284-8, 40856-4 #### [facility] ([id number]) [address] [facility], [address] [place] [address] #### 91771-5 #### [facility] ([id number]) [address] [place] [address] Glucose [Mass/Vol] 141 mg/dL High 65-99 [facility] Comment on above: Performed By: #### C BCA, HA1C, CMP, TSHR, 2131-9, 2276-4, FEPR, 2284-8, 37274-2 #### [facility] ([id number]) [address], [address] [place] [address] #### 74111-8 #### [facility] ([id number]) [address] [place] [address] 39441 Potassium [Moles/Vol] 3.8 mmol/L Normal 3.5-5.0 [facility] Comment on above: Performed By: #### C BCA, HA1C, CMP, TSHR, 2131-9, 6-4, FEPR, 2284-8, 81957-4 #### [facility] ([id number]) [address] [facility], [address] [place] [address] #### 89610-2 #### [facility] ([id number]) [address] [place] [address] 60671 Protein [Mass/Vol] 5.8 g/dL Low 6.0-8.0 [facility] Comment on above: Performed By: #### C BCA, HA1C, CMP, TSHR, 2131-9, 6-4, FEPR, 2284-8, 67745-2 #### [facility] ([id number]) [address] [facility], [address] [place] [address] #### 88879-8 #### [facility] ([id number]) [address] [place] [address] 63235 Sodium [Moles/Vol] 132 mmol/L Low 134-146 [facility] Comment on above: Performed By: #### C BCA, HA1C, CMP, TSHR, 2131-9, 6-4, FEPR, 2284-8, 85668-3 #### [facility] ([id number]) [address] [facility], [address] [place] [address] #### 02924-2 #### [facility] ([id number]) [address] [place] [address] 12053 Urea nitrogen [Mass/Vol] 12 mg/dL Normal 5-27 [facility] Comment on above: Performed By: #### C BCA, HA1C, CMP, TSHR, 2132-9, 2276-4, FEPR, 2284-8, 65502-3 #### [facility] ([id number]) [address] [facility] [address] [place] [address] #### 06707-1 #### [facility] ([id number]) [address] [place] [address] 65433 HEMOGLOBIN AND HEMATOCRIT, B LOODon 10-22-2024 Hematocrit (Bld) [Volume fraction] 26.0 % Low 35-47 [facility] Comment on above: Performed By: #### C BCA, HA1C, CMP, TSHR, 9, 6-4, FEPR, 2284-8, 67593-6 #### [facility] ([id number]) [address] [place] [address], [facility] [address] [place] [address] #### 42550-3 #### [facility] ([id number]) [address] [place] [address] 79963 Hemoglobin (Bld) [Mass/Vol] 8.7 g/dL Low 11.7-15.5 [facility] Comment on above: Performed By: #### C BCA, HA1C, CMP, TSHR, 2131-9, 6-4, FEPR, 2284-8, 37334-9 #### [facility] ([id number]) [address] [place] [address], [facility] [address] [place] [address] #### 01509-5 #### [facility] ([id number]) [address] [place] [address] 68010 MAGNESIUMon 10-22-2024 Magnesium [Mass/Vol] 1.6 mg/dL Low 1.8-2.6 [facility] Comment on above: Performed By: #### C BCA, HA1C, CMP, TSHR, 2-9, 2276-4, FEPR, 2284-8, 28464-7 #### [facility] ([id number]) [address] [facility], [address] [place] [address] #### 15265-7 #### [facility] ([id number]) [address] [place] [address] 30379 PHOSPHORUSon 10-22-2024 Phosphate [Mass/Vol] 3.1 mg/dL Normal 2.4-4.9 [facility] Comment on above: Performed By: #### C BCA, HA1C, CMP, TSHR, 2131-9, 2276-4, FEPR, 2284-8, 23946-0 #### [facility] ([id number]) [address] [facility], [address] [place] [address] #### 05390-3 #### [facility] ([id number]) [address] [place] [address] 96655 BEDSIDE GLUCOSEon 10-21-2024 Glucose [Mass/Vol] 152 mg/dL High 65-99 [facility] Comment on above: Performed By: #### C BCA, HA1C, CMP, TSHR, 2131-9, 6-4, FEPR, 2284-8, 74895-0 #### [facility] ([id number]) [address] [facility], [address] [place] [address] #### 08436-9 #### [facility] ([id number]) [address] [place] [address] 69262 CBC WITH AUTO DIFFERENTIALon 10-21-2024 BASOPHILS ABSOLUTE COUNT (10*3/UL) BY AUTOMATED COUNT 0.0 10*3/uL Normal 0.0-0.2 [facility] Comment on above: Performed By: #### C BCA, HA1C, CMP, TSHR, 2131-9, 6-4, FEPR, 2284-8, 86727-1 #### [facility] ([id number]) [address], [address] [place] [address] #### 94955-8 #### [facility] ([id number]) [address] [place] [address] 13128 BASOPHILS RELATIVE PERCENT BY AUTOMATED COUNT 0.4 % Normal [facility] Comment on above: Performed By: #### C BCA, HA1C, CMP, TSHR, 2131-, 6-4, FEPR, 4-8, 62580-5 #### [facility] ([id number]) [address] [place] [address] #### 38456-4 #### [facility] ([id number]) [address] [place] [address] 48883 CELLAVISION DIFFERENTIAL TYPE AUTOMATED DIFFERENTIAL Normal [facility] Comment on above: Performed By: #### C BCA, HA1C, CMP, TSHR, 2131-10, 6-4, FEPR, 4-8, 38825-2 #### [facility] ([id number]) [address], [address] [place] [address] #### 24131-5 #### [facility] ([id number]) [address] [place] [address] 26130 Eosinophils (Bld) [#/Vol] 0.1 10*3/uL Normal 0.0-0.4 [facility] Comment on above: Performed By: #### C BCA, HA1C, CMP, TSHR, 2131-, 6-4, FEPR, 2284-8, 55620-3 #### [facility] ([id number]) [address], [address] [place] [address] #### 28125-3 #### [facility] ([id number]) [address] [place] [address]197 EOSINOPHILS RELATIVE PERCENT BY AUTOMATED COUNT 2.2 % Normal [facility] Comment on above: Performed By: #### C BCA, HA1C, CMP, TSHR, 2-9, 2276-4, FEPR, 2284-8, 34807-8 #### [facility] ([id number]) [address] [place] [address], [address] [place] [address] #### [id number] #### [facility] ([id number]) [address] [place] [address]18 Erythrocyte distribution width (RBC) [Ratio] 18.7 % High 11.5-15 [facility] Comment on above: Performed By: #### C BCA, HA1C, CMP, TSHR, 2131-9, 6-4, FEPR, 2284-8, 67277-3 #### [facility] ([id number]) [address] [place] [address], [address] [place] [address] #### 02922-6 #### [facility] ([id number]) [address] [place] [address]9570 Hematocrit (Bld) [Volume fraction] 22.5 % Low 35-47 [facility] Comment on above: Performed By: #### C BCA, HA1C, CMP, TSHR, 2131-9, 6-4, FEPR, 2284-8, 39631-3 #### [facility] ([id number]) [address] [place] [address], [address] [place] [address] #### 72869-3 #### [facility] ([id number]) [address] [place] [address]24 Hemoglobin (Bld) [Mass/Vol] 7.7 g/dL Low 11.7-15.5 [facility] Comment on above: Performed By: #### C BCA, HA1C, CMP, TSHR, 2-9, 2276-4, FEPR, 2284-8, 11490-3 #### [facility] ([id number]) [address], [address] [place] [address] #### 40672-5 #### [facility] ([id number]) [address] [place] [address]1630 LYMPHOCYTES ABSOLUTE COUNT (10*3/UL) BY AUTOMATED COUNT 2.0 10*3/uL Normal 1.0-3.5 [facility] Comment on above: Performed By: #### C BCA, HA1C, CMP, TSHR, 2-9, 2276-4, FEPR, 2284-8, 70825-0 #### [facility] ([id number]) [address], [address] [place] [address] #### 50651-4 #### [facility] ([id number]) [address] [place] [address]70 LYMPHOCYTES RELATIVE PERCENT BY AUTOMATED COUNT 29.9 % Normal [facility] Comment on above: Performed By: #### C BCA, HA1C, CMP, TSHR, 2-9, 2276-4, FEPR, 2284-8, 23775-7 #### [facility] ([id number]) [address], [address] [place] [address] #### 76729-0 #### [facility] ([id number]) [address] [place] [address]8499 MCH (RBC) [Entitic mass] 30.2 pg Normal 27-34 [facility] Comment on above: Performed By: #### C BCA, HA1C, CMP, TSHR, 2-9, 2276-4, FEPR, 2284-8, 35368-5 #### [facility] ([id number]) [address] [facility], [address] [place] [address] #### 57858-8 #### [facility] ([id number]) [address] [place] [address]18 MCHC (RBC) [Mass/Vol] 34.1 g/dL Normal 32-36 [facility] Comment on above: Performed By: #### C BCA, HA1C, CMP, TSHR, 2131-10, 6-4, FEPR, 2284-8, 30323-8 #### [facility] ([id number]) [address] [place] [address] #### 20818-2 #### [facility] ([id number]) [address] [place] [address] 40026 MCV (RBC) [Entitic vol] 89 fL Normal 80-100 [facility] Comment on above: Performed By: #### C BCA, HA1C, CMP, TSHR, 2131-10, 6-, FEPR, 4-8, 70946-2 #### [facility] ([id number]) [address] [place] [address] #### 56994-0 #### [facility] ([id number]) [address] [place] [address] 57441 MONOCYTES ABSOLUTE COUNT (10*3/UL) BY AUTOMATED COUNT 0.8 10*3/uL Normal 0.0-0.9 [facility] Comment on above: Performed By: #### C BCA, HA1C, CMP, TSHR, 2131-10, 6-, FEPR, 2284-8, 71689-6 #### [facility] ([id number]) [address] [place] [address] #### 92910-8 #### [facility] ([id number]) [address] [place] [address] 02503 MONOCYTES RELATIVE PERCENT BY AUTOMATED COUNT 12.5 % Normal [facility] Comment on above: Performed By: #### C BCA, HA1C, CMP, TSHR, 2131-9, 2276-4, FEPR, 2284-8, 58187-6 #### [facility] ([id number]) [address], [address] [place] [address] #### 34692-5 #### [facility] ([id number]) [address] [place] [address] 25679 NEUTROPHILS ABSOLUTE COUNT BY AUTOMATED COUNT 3.7 10*3/uL Normal 1.5-6.6 [facility] Comment on above: Performed By: #### C BCA, HA1C, CMP, TSHR, 2131-, 6-4, FEPR, 2284-8, 34130-0 #### [facility] ([id number]) [address] [address], [address] [place] [address] #### 56815-0 #### [facility] ([id number]) [address] [place] [address] 11275 NEUTROPHILS RELATIVE PERCENT BY AUTOMATED COUNT 55.0 % Normal [facility] Comment on above: Performed By: #### C BCA, HA1C, CMP, TSHR, 2131-, 6-4, FEPR, 2284-8, 04456-0 #### [facility] ([id number]) [address], [address] [place] [address] #### 20195-1 #### [facility] ([id number]) [address] [place] [address] 31818 Platelet mean volume (Bld) [Entitic vol] 10.0 fL Normal 7-12 [facility] Comment on above: Performed By: #### C BCA, HA1C, CMP, TSHR, 2131-9, 6-4, FEPR, 2284-8, 08349-5 #### [facility] ([id number]) [address], [address] [place] [address] #### 87994-5 #### [facility] ([id number]) [address] [place] [address] 83476 Platelets (Bld) [#/Vol] 136 10*3/uL Low 150-450 [facility] Comment on above: Performed By: #### C BCA, HA1C, CMP, TSHR, 2132-9, 2276-4, FEPR, 2284-8, 83865-2 #### [facility] ([id number]) [address] [facility], [address] [place] [address] #### 00128-7 #### [facility] ([id number]) [address] [place] [address] 22627 RBC COUNT 2.54 X10E12/L Low 3.8-5.2 [facility] Comment on above: Performed By: #### C BCA, HA1C, CMP, TSHR, 2132-9, 2276-4, FEPR, 2284-8, 48370-7 #### [facility] ([id number]) [address] [facility], [address] [place] [address] #### 35920-9 #### [facility] ([id number]) [address] [place] [address] 49090 WBC (Bld) [#/Vol] 6.7 10*3/uL Normal 4-11 [facility] Comment on above: Performed By: #### C BCA, HA1C, CMP, TSHR, 2132-9, 2276-4, FEPR, 2284-8, 33580-0 #### [facility] ([id number]) [address], [address] [place] [address] #### 82062-1 #### [facility] ([id number]) [address] [place] [address] 50676 COMPREHENSIVE METABOLIC PANE Brock 09-08-2025 Albumin [Mass/Vol] 2.2 g/dL Low 3.2-5.3 [facility] Comment on above: Performed By: #### C BCA, HA1C, CMP, TSHR, 2-9, 2276-4, FEPR, 2284-8, 57805-4 #### [facility] ([id number]) [address] [facility], [address] [place] [address] #### 59650-0 #### [facility] ([id number]) [address] [place] [address] ALP [Catalytic activity/Vol] 140 U/L High 39-130 [facility] Comment on above: Performed By: #### C BCA, HA1C, CMP, TSHR, 2131-9, 6-4, FEPR, 2284-8, 72835-6 #### [facility] ([id number]) [address] [facility], [address] [place] [address] #### 76326-6 #### [facility] ([id number]) [address] [place] [address] 15926 ALT [Catalytic activity/Vol] 170 U/L High <=31 [facility] Comment on above: Performed By: #### C BCA, HA1C, CMP, TSHR, 2131-9, 6-4, FEPR, 2284-8, 34996-8 #### [facility] ([id number]) [address] [facility], [address] [place] [address] #### 15821-8 #### [facility] ([id number]) [address] [place] [address] 46574 Anion gap [Moles/Vol] 6 mmol/L Normal 5-15 [facility] Comment on above: Performed By: #### C BCA, HA1C, CMP, TSHR, 2131-9, 6-4, FEPR, 2284-8, 41746-5 #### [facility] ([id number]) [address], [address] [place] [address] #### 29253-1 #### [facility] ([id number]) [address] [place] [address] 94758 AST [Catalytic activity/Vol] 78 U/L High <=41 [facility] Comment on above: Performed By: #### C BCA, HA1C, CMP, TSHR, 2131-10, 6-4, FEPR, 2283-, 03938-8 #### [facility] ([id number]) [address], [address] [place] [address] #### 48049-9 #### [facility] ([id number]) [address] [place] [address] 58213 Bilirubin [Mass/Vol] 0.8 mg/dL Normal 0.3-1.2 [facility] Comment on above: Performed By: #### C BCA, HA1C, CMP, TSHR, 2131-10, 2275-4, FEPR, 2283-09, 66117-7 #### [facility] ([id number]) [address], [address] [place] [address] #### 52485-1 #### [facility] ([id number]) [address] [place] [address] 64823 Calcium [Mass/Vol] 7.7 mg/dL Low 8.5-10.5 [facility] Comment on above: Performed By: #### C BCA, HA1C, CMP, TSHR, 2131-10, 2275-, FEPR, 2283-09, 01133-7 #### [facility] ([id number]) [address], [address] [place] [address] #### 41849-1 #### [facility] ([id number]) [address] [place] [address] 31542 Chloride [Moles/Vol] 103 mmol/L Normal 98-109 [facility] Comment on above: Performed By: #### C BCA, HA1C, CMP, TSHR, 2-9, 2276-4, FEPR, 2284-8, 03597-4 #### [facility] ([id number]) [address] [facility], [address] [place] [address] #### 59798-7 #### [facility] ([id number]) [address] [place] [address] 94445 CO2 [Moles/Vol] 24 mmol/L Normal 22-32 [facility] Comment on above: Performed By: #### C BCA, HA1C, CMP, TSHR, 2-9, 2276-4, FEPR, 2284-8, 39116-4 #### [facility] ([id number]) [facility] [facility], [address] [place] [address] #### 05265-2 #### [facility] ([id number]) [address] [place] [address] 83858 Creatinine [Mass/Vol] 0.60 mg/dL Normal 0.40-1.00 [facility] Comment on above: Result Comment: METH OD TRACEABLE TO IDMS STANDARD Performed By: #### C BCA, HA1C, CMP, TSHR, 2131-9, 2276-4, FEPR, 2284-8, 73160-4 #### [facility] ([id number]) [address] [facility], [address] [place] [address] #### 30638-9 #### [facility] ([id number]) [address] [place] [address] 20295 EGFR (CKD-EPI) NON-RACE DEPENDENT >^90 Normal >=60 [facility] Comment on above: Result Comment: eGFR not reported due to non-numeric value for Creatinine. Reported eGFR is based on the CKD-EPI 2021 equation that does not use a race coefficient. Performed By: #### C BCA, HA1C, CMP, TSHR, 2131-9, 2276-4, FEPR, 2284-8, 83554-0 #### [facility] ([id number]) [address], [address] [place] [address] #### 90192-6 #### [facility] ([id number]) [address] [place] [address] 32407 Glucose [Mass/Vol] 144 mg/dL High 65-99 [facility] Comment on above: Performed By: #### C BCA, HA1C, CMP, TSHR, 2131-, 6-4, FEPR, 4-8, 08081-3 #### [facility] ([id number]) [address] [facility], [address] [place] [address] #### 02025-5 #### [facility] ([id number]) [address] [place] [address] 67040 Potassium [Moles/Vol] 3.9 mmol/L Normal 3.5-5.0 [facility] Comment on above: Performed By: #### C BCA, HA1C, CMP, TSHR, 2131-9, 6-4, FEPR, 2284-8, 24693-4 #### [facility] ([id number]) [address], [address] [place] [address] #### 99835-4 #### [facility] ([id number]) [address] [place] [address] 27644 Protein [Mass/Vol] 5.8 g/dL Low 6.0-8.0 [facility] Comment on above: Performed By: #### C BCA, HA1C, CMP, TSHR, 2131-9, 2276-4, FEPR, 2284-8, 36416-4 #### [facility] ([id number]) [address], [address] [place] [address] #### 58864-8 #### [facility] ([id number]) [address] [place] [address] 75889 Sodium [Moles/Vol] 133 mmol/L Low 134-146 [facility] Comment on above: Performed By: #### C BCA, HA1C, CMP, TSHR, 2131-9, 6-4, FEPR, 2284-8, 18893-2 #### [facility] ([id number]) [address], [address] [place] [address] #### 28266-8 #### [facility] ([id number]) [address] [place] [address] 48185 Urea nitrogen [Mass/Vol] 10 mg/dL Normal 5-27 [facility] Comment on above: Performed By: #### C BCA, HA1C, CMP, TSHR, 2131-10, 6-4, FEPR, 2284-8, 79100-4 #### [facility] ([id number]) [address], [address] [place] [address] #### 82699-1 #### [facility] ([id number]) [address] [place] [address] 00992 HEMOGLOBIN AND HEMATOCRIT, B LOODon 10-21-2024 Hematocrit (Bld) [Volume fraction] 22.3 % Low 35-47 [facility] Comment on above: Performed By: #### C BCA, HA1C, CMP, TSHR, 2131-, 6-4, FEPR, 2284-8, 09439-1 #### [facility] ([id number]) [address], [address] [place] [address] #### 79738-8 #### [facility] ([id number]) [address] [place] [address] 55203 Hemoglobin (Bld) [Mass/Vol] 7.4 g/dL Low 11.7-15.5 [facility] Comment on above: Performed By: #### C BCA, HA1C, CMP, TSHR, 2131-10, 6-4, FEPR, 2284-8, 19463-5 #### [facility] ([id number]) [address] [facility], [address] [place] [address] #### 94872-2 #### [facility] ([id number]) [address] [place] [address] 06054 Hematocrit (Bld) [Volume fraction] 22.2 % Low 35-47 [facility] Comment on above: Performed By: #### C BCA, HA1C, CMP, TSHR, 2131-10, 6-4, FEPR, 4-8, 14727-9 #### [facility] ([id number]) [address] [place] [address], [address] [place] [address] #### 38687-9 #### [facility] ([id number]) [address] [place] [address] 82044 Hemoglobin (Bld) [Mass/Vol] 7.5 g/dL Low 11.7-15.5 [facility] Comment on above: Performed By: #### C BCA, HA1C, CMP, TSHR, 2131-10, 2275-05, FEPR, 4-8, 42756-2 #### [facility] ([id number]) [address] [place] [address], [address] [place] [address] #### 20362-9 #### [facility] ([id number]) [address] [place] [address] 75119 MAGNESIUMon 10-21-2024 Magnesium [Mass/Vol] 1.7 mg/dL Low 1.8-2.6 [facility] Comment on above: Performed By: #### C BCA, HA1C, CMP, TSHR, 2132-9, 2276-4, FEPR, 2284-8, 59276-9 #### [facility] ([id number]) [address], [address] [place] [address] #### 11798-6 #### [facility] ([id number]) [address] [place] [address] 38061 PHOSPHORUSon 10-21-2024 Phosphate [Mass/Vol] 2.8 mg/dL Normal 2.4-4.9 [facility] Comment on above: Performed By: #### C BCA, HA1C, CMP, TSHR, 2-9, 2276-4, FEPR, 2284-8, 58736-0 #### [facility] ([id number]) [address], [address] [place] [address] #### 87649-9 #### [facility] ([id number]) [address] [place] [address] 96772 TYPE AND SCREENon 10-21-2024 ABO_INTEP AB Normal [facility] Comment on above: Performed By: #### C BCA, HA1C, CMP, TSHR, 2-9, 2276-4, FEPR, 2284-8, 51809-2 #### [facility] ([id number]) [address], [address] [place] [address] #### 26145-2 #### [facility] ([id number]) [address] [place] [address] 73262 RH_INTEP Positive Normal [facility] Comment on above: Performed By: #### C BCA, HA1C, CMP, TSHR, 2132-9, 2276-4, FEPR, 2284-8, 85474-8 #### [facility] ([id number]) [address], [address] [place] [address] #### 08691-0 #### [facility] ([id number]) [address] [place] [address] 55864 BEDSIDE GLUCOSEon 10-20-2024 Glucose [Mass/Vol] 121 mg/dL High 65-99 [facility] Comment on above: Performed By: #### C BCA, HA1C, CMP, TSHR, 2132-9, 2276-4, FEPR, 2284-8, 05970-3 #### [facility] ([id number]) [address] [facility], [address] [place] [address] #### 27299-6 #### [facility] ([id number]) [address] [place] [address] 23567 Glucose [Mass/Vol] 221 mg/dL High 65-99 [facility] Comment on above: Performed By: #### C BCA, HA1C, CMP, TSHR, 2-9, 2276-4, FEPR, 2284-8, 95947-9 #### [facility] ([id number]) [address] [facility], [address] [place] [address] #### 90081-5 #### [facility] ([id number]) [address] [place] [address] 49208 Glucose [Mass/Vol] 158 mg/dL High 65-99 [facility] Comment on above: Performed By: #### C BCA, HA1C, CMP, TSHR, 2132-9, 2276-4, FEPR, 2284-8, 71745-6 #### [facility] ([id number]) [address] [facility], [address] [place] [address] #### 94182-4 #### [facility] ([id number]) [address] [place] [address] 71891 CBC WITH AUTO DIFFERENTIALon 10-20-2024 BASOPHILS ABSOLUTE COUNT (10*3/UL) BY AUTOMATED COUNT 0.0 10*3/uL Normal 0.0-0.2 [facility] Comment on above: Performed By: #### C BCA, HA1C, CMP, TSHR, 2131-, 6-4, FEPR, 2284-8, 38770-9 #### [facility] ([id number]) [address], [address] [place] [address] #### 03055-7 #### [facility] ([id number]) [address] [place] [address] 15517 BASOPHILS RELATIVE PERCENT BY AUTOMATED COUNT 0.3 % Normal [facility] Comment on above: Performed By: #### C BCA, HA1C, CMP, TSHR, 2131-, 6-4, FEPR, 4-8, 85443-3 #### [facility] ([id number]) [address], [address] [place] [address] #### 63818-5 #### [facility] ([id number]) [address] [place] [address] 09657 CELLAVISION DIFFERENTIAL TYPE AUTOMATED DIFFERENTIAL Normal [facility] Comment on above: Performed By: #### C BCA, HA1C, CMP, TSHR, 2131-10, 6-4, FEPR, 4-8, 98936-4 #### [facility] ([id number]) [address], [address] [place] [address] #### 88885-7 #### [facility] ([id number]) [address] [place] [address] 13068 Eosinophils (Bld) [#/Vol] 0.2 10*3/uL Normal 0.0-0.4 [facility] Comment on above: Performed By: #### C BCA, HA1C, CMP, TSHR, 2131-, 6-4, FEPR, 2284-8, 58103-2 #### [facility] ([id number]) [address], [address] [place] [address] #### 94427-7 #### [facility] ([id number]) [address] [place] [address] 84066 EOSINOPHILS RELATIVE PERCENT BY AUTOMATED COUNT 2.8 % Normal [facility] Comment on above: Performed By: #### C BCA, HA1C, CMP, TSHR, 2-9, 2276-4, FEPR, 2284-8, 93638-6 #### [facility] ([id number]) [address] [facility], [facility] [address] [place] [address] #### 77615-3 #### [facility] ([id number]) [address] [place] [address] 93673 Erythrocyte distribution width (RBC) [Ratio] 17.2 % High 11.5-15 [facility] Comment on above: Performed By: #### C BCA, HA1C, CMP, TSHR, 2131-9, 6-4, FEPR, 4-8, 64115-1 #### [facility] ([id number]) [address] [facility], [facility] [address] [place] [address] #### 13743-7 #### [facility] ([id number]) [address] [place] [address] 34928 Hematocrit (Bld) [Volume fraction] 21.7 % Low 35-47 [facility] Comment on above: Performed By: #### C BCA, HA1C, CMP, TSHR, 2131-9, 6-4, FEPR, 2284-8, 61893-3 #### [facility] ([id number]) [address] [facility], [facility] [address] [place] [address] #### 50755-4 #### [facility] ([id number]) [address] [place] [address] 87756 Hemoglobin (Bld) [Mass/Vol] 7.4 g/dL Low 11.7-15.5 [facility] Comment on above: Performed By: #### C BCA, HA1C, CMP, TSHR, 2-9, 2276-4, FEPR, 2284-8, 47101-6 #### [facility] ([id number]) [address], [address] [place] [address] #### 73335-8 #### [facility] ([id number]) [address] [place] [address] 51619 LYMPHOCYTES ABSOLUTE COUNT (10*3/UL) BY AUTOMATED COUNT 1.3 10*3/uL Normal 1.0-3.5 [facility] Comment on above: Performed By: #### C BCA, HA1C, CMP, TSHR, 2-9, 2276-4, FEPR, 2284-8, 33921-4 #### [facility] ([id number]) [address] [facility], [facility] [address] [place] [address] #### 88472-3 #### [facility] ([id number]) [address] [place] [address] 74213 LYMPHOCYTES RELATIVE PERCENT BY AUTOMATED COUNT 19.8 % Normal [facility] Comment on above: Performed By: #### C BCA, HA1C, CMP, TSHR, 2131-9, 2276-4, FEPR, 2284-8, 74583-0 #### [facility] ([id number]) [address] [facility], [address] [place] [address] #### 28167-6 #### [facility] ([id number]) [address] [place] [address] 42081 MCH (RBC) [Entitic mass] 29.8 pg Normal 27-34 [facility] Comment on above: Performed By: #### C BCA, HA1C, CMP, TSHR, 2-9, 2276-4, FEPR, 2284-8, 73694-2 #### [facility] ([id number]) [address], [address] [place] [address] #### 41600-5 #### [facility] ([id number]) [address] [place] [address] 57747 MCHC (RBC) [Mass/Vol] 34.2 g/dL Normal 32-36 [facility] Comment on above: Performed By: #### C BCA, HA1C, CMP, TSHR, 2131-, 6-4, FEPR, 4-8, 31309-6 #### [facility] ([id number]) [address] [facility], [address] [place] [address] #### 68908-8 #### [facility] ([id number]) [address] [place] [address] 13798 MCV (RBC) [Entitic vol] 87 fL Normal 80-100 [facility] Comment on above: Performed By: #### C BCA, HA1C, CMP, TSHR, 2131-10, 6-, FEPR, 2283-8, 57943-3 #### [facility] ([id number]) [address] [facility], [address] [place] [address] #### 15687-0 #### [facility] ([id number]) [address] [place] [address] 19424 MONOCYTES ABSOLUTE COUNT (10*3/UL) BY AUTOMATED COUNT 0.9 10*3/uL Normal 0.0-0.9 [facility] Comment on above: Performed By: #### C BCA, HA1C, CMP, TSHR, 2131-10, 6-, FEPR, 4-8, 22856-4 #### [facility] ([id number]) [address] [facility], [address] [place] [address] #### 52734-5 #### [facility] ([id number]) [address] [place] [address] 64636 MONOCYTES RELATIVE PERCENT BY AUTOMATED COUNT 13.2 % Normal [facility] Comment on above: Performed By: #### C BCA, HA1C, CMP, TSHR, 2-9, 2276-4, FEPR, 2284-8, 93210-2 #### [facility] ([id number]) [address] [facility], [address] [place] [address] #### 25046-2 #### [facility] ([id number]) [address] [place] [address] 74128 NEUTROPHILS ABSOLUTE COUNT BY AUTOMATED COUNT 4.1 10*3/uL Normal 1.5-6.6 [facility] Comment on above: Performed By: #### C BCA, HA1C, CMP, TSHR, 2131-9, 6-4, FEPR, 2284-8, 21527-7 #### [facility] ([id number]) [address] [facility], [address] [place] [address] #### 93477-8 #### [facility] ([id number]) [address] [place] [address] 55540 NEUTROPHILS RELATIVE PERCENT BY AUTOMATED COUNT 63.9 % Normal [facility] Comment on above: Performed By: #### C BCA, HA1C, CMP, TSHR, 2131-9, 2276-4, FEPR, 2284-8, 82407-5 #### [facility] ([id number]) [address] [facility], [address] [place] [address] #### 04501-1 #### [facility] ([id number]) [address] [place] [address] 95781 Platelet mean volume (Bld) [Entitic vol] 10.4 fL Normal 7-12 [facility] Comment on above: Performed By: #### C BCA, HA1C, CMP, TSHR, 2-9, 2276-4, FEPR, 2284-8, 28799-0 #### [facility] ([id number]) [address], [address] [place] [address] #### 71956-0 #### [facility] ([id number]) [address] [place] [address] 71993 Platelets (Bld) [#/Vol] 107 10*3/uL Low 150-450 [facility] Comment on above: Performed By: #### C BCA, HA1C, CMP, TSHR, 2132-9, 2276-4, FEPR, 2284-8, 10305-5 #### [facility] ([id number]) [address] [facility], [address] [place] [address] #### 49084-8 #### [facility] ([id number]) [address] [place] [address] 68697 RBC COUNT 2.50 X10E12/L Low 3.8-5.2 [facility] Comment on above: Performed By: #### C BCA, HA1C, CMP, TSHR, 2-9, 2276-4, FEPR, 2284-8, 96578-9 #### [facility] ([id number]) [address] [facility], [address] [place] [address] #### 49226-9 #### [facility] ([id number]) [address] [place] [address] 39748 WBC (Bld) [#/Vol] 6.5 10*3/uL Normal 4-11 [facility] Comment on above: Performed By: #### C BCA, HA1C, CMP, TSHR, 2-9, 2276-4, FEPR, 2284-8, 05596-9 #### [facility] ([id number]) [address] [facility], [address] [place] [address] #### [id number] #### [facility] ([id number]) [address] [place] [address]94 COMPREHENSIVE METABOLIC PANE Brock 10-20-2024 Albumin [Mass/Vol] 2.1 g/dL Low 3.2-5.3 [facility] Comment on above: Performed By: #### C BCA, HA1C, CMP, TSHR, 2131-9, 2276-4, FEPR, 2284-8, 11016-4 #### [facility] ([id number]) [address] [facility], [address] [place] [address] #### 95213-6 #### [facility] ([id number]) [address] [place] [address] 14909 ALP [Catalytic activity/Vol] 134 U/L High 39-130 [facility] Comment on above: Performed By: #### C BCA, HA1C, CMP, TSHR, 9, 6-4, FEPR, 4-8, 64273-8 #### [facility] ([id number]) [address] [facility], [address] [place] [address] #### 40979-3 #### [facility] ([id number]) [address] [place] [address] 91384 ALT [Catalytic activity/Vol] 187 U/L High <=31 [facility] Comment on above: Performed By: #### C BCA, HA1C, CMP, TSHR, 2131-10, 6-4, FEPR, 4-8, 48296-4 #### [facility] ([id number]) [address] [facility], [address] [place] [address] #### 64763-4 #### [facility] ([id number]) [address] [place] [address] 85351 Anion gap [Moles/Vol] 5 mmol/L Normal 5-15 [facility] Comment on above: Performed By: #### C BCA, HA1C, CMP, TSHR, 2131-10, 6-4, FEPR, 2284-8, 23326-0 #### [facility] ([id number]) [address], [address] [place] [address] #### 17859-8 #### [facility] ([id number]) [address] [place] [address] AST [Catalytic activity/Vol] 113 U/L High <=41 [facility] Comment on above: Performed By: #### C BCA, HA1C, CMP, TSHR, 2131-9, 6-4, FEPR, 2284-8, 60614-9 #### [facility] ([id number]) [address], [address] [place] [address] #### 44967-8 #### [facility] ([id number]) [address] [place] [address] 50035 Bilirubin [Mass/Vol] 0.9 mg/dL Normal 0.3-1.2 [facility] Comment on above: Performed By: #### C BCA, HA1C, CMP, TSHR, 2131-10, 6-4, FEPR, 2284-8, 60942-4 #### [facility] ([id number]) [address], [address] [place] [address] #### 55268-7 #### [facility] ([id number]) [address] [place] [address] 26320 Calcium [Mass/Vol] 7.5 mg/dL Low 8.5-10.5 [facility] Comment on above: Performed By: #### C BCA, HA1C, CMP, TSHR, 2131-, 6-4, FEPR, 2284-8, 82164-8 #### [facility] ([id number]) [address], [address] [place] [address] #### 47492-0 #### [facility] ([id number]) [address] [place] [address] 89988 Chloride [Moles/Vol] 107 mmol/L Normal 98-109 [facility] Comment on above: Performed By: #### C BCA, HA1C, CMP, TSHR, 2-9, 2276-4, FEPR, 2284-8, 60510-5 #### [facility] ([id number]) [address], [address] [place] [address] #### 47153-0 #### [facility] ([id number]) [address] [place] [address] 91429 CO2 [Moles/Vol] 24 mmol/L Normal 22-32 [facility] Comment on above: Performed By: #### C BCA, HA1C, CMP, TSHR, 2-9, 2276-4, FEPR, 2284-8, 44967-8 #### [facility] ([id number]) [address] [facility], [address] [place] [address] #### 69607-4 #### [facility] ([id number]) [address] [place] [address] 61652 Creatinine [Mass/Vol] 0.60 mg/dL Normal 0.40-1.00 [facility] Comment on above: Result Comment: METH OD TRACEABLE TO IDMS STANDARD Performed By: #### C BCA, HA1C, CMP, TSHR, 2-9, 2276-4, FEPR, 2284-8, 64511-7 #### [facility] ([id number]) [address], [address] [place] [address] #### 55402-2 #### [facility] ([id number]) [address] [place] [address] 97881 EGFR (CKD-EPI) NON-RACE DEPENDENT >^90 Normal >=60 [facility] Comment on above: Result Comment: eGFR not reported due to non-numeric value for Creatinine. Reported eGFR is based on the CKD-EPI 2020 equation that does not use a race coefficient. Performed By: #### C BCA, HA1C, CMP, TSHR, 2-9, 2276-4, FEPR, 2284-8, 34982-6 #### [facility] ([id number]) [address] [facility], [address] [place] [address] #### 82764-6 #### [facility] ([id number]) [address] [place] [address] 42859 Glucose [Mass/Vol] 158 mg/dL High 65-99 [facility] Comment on above: Performed By: #### C BCA, HA1C, CMP, TSHR, 2131-10, 6-4, FEPR, 2284-8, 90273-2 #### [facility] ([id number]) [address] [place] [address], [address] [place] [address] #### 60154-9 #### [facility] ([id number]) [address] [place] [address] 25525 Potassium [Moles/Vol] 3.6 mmol/L Normal 3.5-5.0 [facility] Comment on above: Performed By: #### C BCA, HA1C, CMP, TSHR, 9, 6-4, FEPR, 2284-8, 69685-4 #### [facility] ([id number]) [address] [place] [address], [address] [place] [address] #### 68275-7 #### [facility] ([id number]) [address] [place] [address] 91989 Protein [Mass/Vol] 5.3 g/dL Low 6.0-8.0 [facility] Comment on above: Performed By: #### C BCA, HA1C, CMP, TSHR, 2131-9, 6-4, FEPR, 2284-8, 56889-1 #### [facility] ([id number]) [address], [address] [place] [address] #### 00566-5 #### [facility] ([id number]) [address] [place] [address] 50165 Sodium [Moles/Vol] 136 mmol/L Normal 134-146 [facility] Comment on above: Performed By: #### C BCA, HA1C, CMP, TSHR, 2131-9, 2276-4, FEPR, 2284-8, 38363-9 #### [facility] ([id number]) [address] [facility], [address] [place] [address] #### 11049-1 #### [facility] ([id number]) [address] [place] [address] 88830 Urea nitrogen [Mass/Vol] 10 mg/dL Normal 5-27 [facility] Comment on above: Performed By: #### C BCA, HA1C, CMP, TSHR, 2131-10, 6-4, FEPR, 2284-8, 56623-0 #### [facility] ([id number]) [address], [address] [place] [address] #### 60484-4 #### [facility] ([id number]) [address] [place] [address] 06245 HEMOGLOBIN AND HEMATOCRIT, B LOODon 10-20-2024 Hematocrit (Bld) [Volume fraction] 25.7 % Low 35-47 [facility] Comment on above: Performed By: #### C BCA, HA1C, CMP, TSHR, 9, 6-4, FEPR, 2284-8, 57929-3 #### [facility] ([id number]) [address], [address] [place] [address] #### 82411-0 #### [facility] ([id number]) [address] [place] [address] 83167 Hemoglobin (Bld) [Mass/Vol] 8.6 g/dL Low 11.7-15.5 [facility] Comment on above: Performed By: #### C BCA, HA1C, CMP, TSHR, 2131-10, 6-4, FEPR, 4-8, 75955-5 #### [facility] ([id number]) [address] [place] [address], [address] [place] [address] #### 34129-4 #### [facility] ([id number]) [address] [place] [address] 61970 IONIZED CALCIUMon 10-20-2024 IONIZED CALCIUM - ICAN 4.7 mg/dL Normal 4.5-5.3 [facility] Comment on above: Performed By: #### C BCA, HA1C, CMP, TSHR, 2131-10, 2275-05, FEPR, 2283-8, 02738-5 #### [facility] ([id number]) [address] [place] [address], [address] [place] [address] #### 93621-4 #### [facility] ([id number]) [address] [place] [address] 76134 MAGNESIUMon 10-20-2024 Magnesium [Mass/Vol] 2.1 mg/dL Normal 1.8-2.6 [facility] Comment on above: Performed By: #### C BCA, HA1C, CMP, TSHR, 2131-10, 2275-05, FEPR, 8, 97320-1 #### [facility] ([id number]) [address] [place] [address], [address] [place] [address] #### 61496-8 #### [facility] ([id number]) [address] [place] [address] 52842 Magnesium [Mass/Vol] 1.8 mg/dL Normal 1.8-2.6 [facility] Comment on above: Performed By: #### C BCA, HA1C, CMP, TSHR, 2-9, 2276-4, FEPR, 2284-8, 61096-9 #### [facility] ([id number]) [address] [facility], [address] [place] [address] #### 62234-9 #### [facility] ([id number]) [address] [place] [address] 08777 PHOSPHORUSon 10-20-2024 Phosphate [Mass/Vol] 2.3 mg/dL Low 2.4-4.9 [facility] Comment on above: Performed By: #### C BCA, HA1C, CMP, TSHR, 2131-9, 2276-4, FEPR, 4-8, 78016-4 #### [facility] ([id number]) [address] [facility], [address] [place] [address] #### 24590-5 #### [facility] ([id number]) [address] [place] [address] 38233 POTASSIUMon 10-20-2024 Potassium [Moles/Vol] 3.8 mmol/L Normal 3.5-5.0 [facility] Comment on above: Performed By: #### C BCA, HA1C, CMP, TSHR, 2131-9, 6-4, FEPR, 2284-8, 41465-4 #### [facility] ([id number]) [facility] [facility], [address] [place] [address] #### 61140-9 #### [facility] ([id number]) [address] [place] [address] 07066 TRIGLYCERIDESon 10-20-2024 Triglyceride [Mass/Vol] 142 mg/dL Normal 27-150 [facility] Comment on above: Performed By: #### C BCA, HA1C, CMP, TSHR, 2131-9, 6-4, FEPR, 2284-8, 65426-2 #### [facility] ([id number]) [address], [address] [place] [address] #### 47204-8 #### [facility] ([id number]) [address] [place] [address] 29551 BEDSIDE GLUCOSEon 10-19-2024 Glucose [Mass/Vol] 221 mg/dL High 65-99 [facility] Comment on above: Performed By: #### C BCA, HA1C, CMP, TSHR, 2-9, 2276-4, FEPR, 2284-8, 26815-5 #### [facility] ([id number]) [address] [facility], [address] [place] [address] #### 88100-5 #### [facility] ([id number]) [address] [place] [address] 43280 Glucose [Mass/Vol] 194 mg/dL High 65-99 [facility] Comment on above: Performed By: #### C BCA, HA1C, CMP, TSHR, 2131-9, 6-4, FEPR, 2284-8, 95450-5 #### [facility] ([id number]) [address] [facility], [address] [place] [address] #### 40333-9 #### [facility] ([id number]) [address] [place] [address] 17851 CBC WITH AUTO DIFFERENTIALon 10-19-2024 BASOPHILS ABSOLUTE COUNT (10*3/UL) BY AUTOMATED COUNT 0.0 10*3/uL Normal 0.0-0.2 [facility] Comment on above: Performed By: #### C BCA, HA1C, CMP, TSHR, 2-9, 2276-4, FEPR, 2284-8, 07005-0 #### [facility] ([id number]) [address] [facility], [address] [place] [address] #### 15027-6 #### [facility] ([id number]) [address] [place] [address] 71762 BASOPHILS RELATIVE PERCENT BY AUTOMATED COUNT 0.2 % Normal [facility] Comment on above: Performed By: #### C BCA, HA1C, CMP, TSHR, 2-9, 2276-4, FEPR, 2284-8, 87508-9 #### [facility] ([id number]) [address] [facility], [address] [place] [address] #### 52212-8 #### [facility] ([id number]) [address] [place] [address] 86314 CELLAVISION DIFFERENTIAL TYPE AUTOMATED DIFFERENTIAL Normal [facility] Comment on above: Performed By: #### C BCA, HA1C, CMP, TSHR, 2131-9, 6-4, FEPR, 4-8, 14720-5 #### [facility] ([id number]) [address] [facility], [address] [place] [address] #### 29127-0 #### [facility] ([id number]) [address] [place] [address] 51479 Eosinophils (Bld) [#/Vol] 0.1 10*3/uL Normal 0.0-0.4 [facility] Comment on above: Performed By: #### C BCA, HA1C, CMP, TSHR, 2131-9, 6-4, FEPR, 2284-8, 38179-1 #### [facility] ([id number]) [address] [facility], [address] [place] [address] #### 36660-9 #### [facility] ([id number]) [address] [place] [address] 84116 EOSINOPHILS RELATIVE PERCENT BY AUTOMATED COUNT 1.7 % Normal [facility] Comment on above: Performed By: #### C BCA, HA1C, CMP, TSHR, 2131-9, 6-4, FEPR, 2284-8, 50192-7 #### [facility] ([id number]) [address], [address] [place] [address] #### 72707-2 #### [facility] ([id number]) [address] [place] [address] 83100 Erythrocyte distribution width (RBC) [Ratio] 16.8 % High 11.5-15 [facility] Comment on above: Performed By: #### C BCA, HA1C, CMP, TSHR, 2131-9, 6-4, FEPR, 2284-8, 67962-7 #### [facility] ([id number]) [address], [address] [place] [address] #### 73742-7 #### [facility] ([id number]) [address] [place] [address] 32347 Hematocrit (Bld) [Volume fraction] 23.9 % Low 35-47 [facility] Comment on above: Performed By: #### C BCA, HA1C, CMP, TSHR, 2131-9, 6-4, FEPR, 2284-8, 26470-3 #### [facility] ([id number]) [address], [address] [place] [address] #### 40801-4 #### [facility] ([id number]) [address] [place] [address] 54358 Hemoglobin (Bld) [Mass/Vol] 8.4 g/dL Low 11.7-15.5 [facility] Comment on above: Performed By: #### C BCA, HA1C, CMP, TSHR, 2131-9, 6-4, FEPR, 2284-8, 02086-9 #### [facility] ([id number]) [address], [address] [place] [address] #### 85078-0 #### [facility] ([id number]) [address] [place] [address] 90840 LYMPHOCYTES ABSOLUTE COUNT (10*3/UL) BY AUTOMATED COUNT 1.6 10*3/uL Normal 1.0-3.5 [facility] Comment on above: Performed By: #### C BCA, HA1C, CMP, TSHR, 2-9, 2276-4, FEPR, 2284-8, 73666-9 #### [facility] ([id number]) [address] [place] [address], [address] [place] [address] #### 67802-0 #### [facility] ([id number]) [address] [place] [address] 44206 LYMPHOCYTES RELATIVE PERCENT BY AUTOMATED COUNT 18.8 % Normal [facility] Comment on above: Performed By: #### C BCA, HA1C, CMP, TSHR, 2131-, 6-4, FEPR, 4-8, 88940-1 #### [facility] ([id number]) [address] [facility], [address] [place] [address] #### 58132-2 #### [facility] ([id number]) [address] [place] [address] 36521 MCH (RBC) [Entitic mass] 30.4 pg Normal 27-34 [facility] Comment on above: Performed By: #### C BCA, HA1C, CMP, TSHR, 2131-9, 6-4, FEPR, 2284-8, 33618-0 #### [facility] ([id number]) [address] [facility], [address] [place] [address] #### 26150-9 #### [facility] ([id number]) [address] [place] [address] 72274 MCHC (RBC) [Mass/Vol] 35.0 g/dL Normal 32-36 [facility] Comment on above: Performed By: #### C BCA, HA1C, CMP, TSHR, 2-9, 2276-4, FEPR, 2284-8, 57075-9 #### [facility] ([id number]) [address], [address] [place] [address] #### 98892-7 #### [facility] ([id number]) [address] [place] [address] 38745 MCV (RBC) [Entitic vol] 87 fL Normal 80-100 [facility] Comment on above: Performed By: #### C BCA, HA1C, CMP, TSHR, 2-9, 2276-4, FEPR, 2284-8, 92224-3 #### [facility] ([id number]) [address], [address] [place] [address] #### 19373-2 #### [facility] ([id number]) [address] [place] [address] 31622 MONOCYTES ABSOLUTE COUNT (10*3/UL) BY AUTOMATED COUNT 1.2 10*3/uL High 0.0-0.9 [facility] Comment on above: Performed By: #### C BCA, HA1C, CMP, TSHR, 2-9, 2276-4, FEPR, 2284-8, 55568-0 #### [facility] ([id number]) [address], [address] [place] [address] #### 39440-0 #### [facility] ([id number]) [address] [place] [address] 54680 MONOCYTES RELATIVE PERCENT BY AUTOMATED COUNT 13.7 % Normal [facility] Comment on above: Performed By: #### C BCA, HA1C, CMP, TSHR, 2-9, 2276-4, FEPR, 2284-8, 51941-7 #### [facility] ([id number]) [address], [address] [place] [address] #### 09235-9 #### [facility] ([id number]) [address] [place] [address] 00549 NEUTROPHILS ABSOLUTE COUNT BY AUTOMATED COUNT 5.5 10*3/uL Normal 1.5-6.6 [facility] Comment on above: Performed By: #### C BCA, HA1C, CMP, TSHR, 2-9, 2276-4, FEPR, 2284-8, 85677-2 #### [facility] ([id number]) [address] [facility], [address] [place] [address] #### 82701-4 #### [facility] ([id number]) [address] [place] [address] 00644 NEUTROPHILS RELATIVE PERCENT BY AUTOMATED COUNT 65.6 % Normal [facility] Comment on above: Performed By: #### C BCA, HA1C, CMP, TSHR, 2131-9, 6-4, FEPR, 4-8, 09430-9 #### [facility] ([id number]) [address] [facility], [address] [place] [address] #### 37944-0 #### [facility] ([id number]) [address] [place] [address] 99864 Platelet mean volume (Bld) [Entitic vol] 9.7 fL Normal 7-12 [facility] Comment on above: Performed By: #### C BCA, HA1C, CMP, TSHR, 2131-9, 2276-4, FEPR, 2284-8, 05089-7 #### [facility] ([id number]) [address] [facility], [address] [place] [address] #### 36877-4 #### [facility] ([id number]) [address] [place] [address] 06477 Platelets (Bld) [#/Vol] 115 10*3/uL Low 150-450 [facility] Comment on above: Performed By: #### C BCA, HA1C, CMP, TSHR, 2132-9, 2276-4, FEPR, 2284-8, 73452-4 #### [facility] ([id number]) [address], [address] [place] [address] #### 89730-1 #### [facility] ([id number]) [address] [place] [address] 82079 RBC COUNT 2.75 X10E12/L Low 3.8-5.2 [facility] Comment on above: Performed By: #### C BCA, HA1C, CMP, TSHR, 2131-9, 2276-4, FEPR, 2284-8, 07008-6 #### [facility] ([id number]) [address], [address] [place] [address] #### 11364-2 #### [facility] ([id number]) [address] [place] [address] 93100 WBC (Bld) [#/Vol] 8.4 10*3/uL Normal 4-11 [facility] Comment on above: Performed By: #### C BCA, HA1C, CMP, TSHR, 2-9, 2276-4, FEPR, 2284-8, 39731-1 #### [facility] ([id number]) [address], [address] [place] [address] #### 87097-0 #### [facility] ([id number]) [address] [place] [address] 42727 COMPREHENSIVE METABOLIC PANE Brock 10-19-2024 Albumin [Mass/Vol] 1.7 g/dL Low 3.2-5.3 [facility] Comment on above: Performed By: #### C BCA, HA1C, CMP, TSHR, 2132-9, 2276-4, FEPR, 2284-8, 10481-0 #### [facility] ([id number]) [address], [address] [place] [address] #### 95872-5 #### [facility] ([id number]) [address] [place] [address] 53417 ALP [Catalytic activity/Vol] 153 U/L High 39-130 [facility] Comment on above: Performed By: #### C BCA, HA1C, CMP, TSHR, 2132-9, 2276-4, FEPR, 2284-8, 39292-6 #### [facility] ([id number]) [address] [facility], [address] [place] [address] #### 43655-3 #### [facility] ([id number]) [address] [place] [address] 54945 ALT [Catalytic activity/Vol] 225 U/L High <=31 [facility] Comment on above: Performed By: #### C BCA, HA1C, CMP, TSHR, 2-9, 2276-4, FEPR, 2284-8, 69651-3 #### [facility] ([id number]) [address] [facility], [address] [place] [address] #### 50785-3 #### [facility] ([id number]) [address] [place] [address] 03877 Anion gap [Moles/Vol] 5 mmol/L Normal 5-15 [facility] Comment on above: Performed By: #### C BCA, HA1C, CMP, TSHR, 2132-9, 2276-4, FEPR, 2284-8, 93738-9 #### [facility] ([id number]) [address] [facility], [address] [place] [address] #### 66815-9 #### [facility] ([id number]) [address] [place] [address] 29971 AST [Catalytic activity/Vol] 94 U/L High <=41 [facility] Comment on above: Performed By: #### C BCA, HA1C, CMP, TSHR, 2131-9, 6-4, FEPR, 2284-8, 16412-0 #### [facility] ([id number]) [address] [facility], [address] [place] [address] #### 93426-3 #### [facility] ([id number]) [address] [place] [address] 19128 Bilirubin [Mass/Vol] 0.8 mg/dL Normal 0.3-1.2 [facility] Comment on above: Performed By: #### C BCA, HA1C, CMP, TSHR, 2131-10, 6-4, FEPR, 4-8, 22784-6 #### [facility] ([id number]) [address] [place] [address], [address] [place] [address] #### 39329-2 #### [facility] ([id number]) [address] [place] [address] 31743 Calcium [Mass/Vol] 7.3 mg/dL Low 8.5-10.5 [facility] Comment on above: Performed By: #### C BCA, HA1C, CMP, TSHR, 2131-10, 6-4, FEPR, 4-8, 98277-4 #### [facility] ([id number]) [address] [place] [address], [address] [place] [address] #### 96610-5 #### [facility] ([id number]) [address] [place] [address] 91466 Chloride [Moles/Vol] 107 mmol/L Normal 98-109 [facility] Comment on above: Performed By: #### C BCA, HA1C, CMP, TSHR, 2131-10, 6-4, FEPR, 2284-8, 07856-9 #### [facility] ([id number]) [address] [facility], [address] [place] [address] #### 90338-8 #### [facility] ([id number]) [address] [place] [address] 71918 CO2 [Moles/Vol] 22 mmol/L Normal 22-32 [facility] Comment on above: Performed By: #### C BCA, HA1C, CMP, TSHR, 2131-9, 2276-4, FEPR, 2284-8, 06101-2 #### [facility] ([id number]) [address] [facility] [address] [place] [address] #### 97678-4 #### [facility] ([id number]) [address] [place] [address] 26945 Creatinine [Mass/Vol] 0.58 mg/dL Normal 0.40-1.00 [facility] Comment on above: Result Comment: METH OD TRACEABLE TO IDMS STANDARD Performed By: #### C BCA, HA1C, CMP, TSHR, 2131-9, 2276-4, FEPR, 2284-8, 93874-5 #### [facility] ([id number]) [address] [facility], [address] [place] [address] #### 44084-2 #### [facility] ([id number]) [address] [place] [address] 97511 EGFR (CKD-EPI) NON-RACE DEPENDENT >^90 Normal >=60 [facility] Comment on above: Result Comment: eGFR not reported due to non-numeric value for Creatinine. Reported eGFR is based on the CKD-EPI 2020 equation that does not use a race coefficient. Performed By: #### C BCA, HA1C, CMP, TSHR, 2132-9, 2276-4, FEPR, 2284-8, 73439-9 #### [facility] ([id number]) [address] [facility], [address] [place] [address] #### 15867-0 #### [facility] ([id number]) [address] [place] [address] 36148 Glucose [Mass/Vol] 166 mg/dL High 65-99 [facility] Comment on above: Performed By: #### C BCA, HA1C, CMP, TSHR, 2-9, 2276-4, FEPR, 2284-8, 19278-1 #### [facility] ([id number]) [address], [address] [place] [address] #### 00416-1 #### [facility] ([id number]) [address] [place] [address] 95084 Potassium [Moles/Vol] 3.5 mmol/L Normal 3.5-5.0 [facility] Comment on above: Performed By: #### C BCA, HA1C, CMP, TSHR, 2131-9, 6-4, FEPR, 4-8, 94937-0 #### [facility] ([id number]) [address] [facility], [address] [place] [address] #### 57675-1 #### [facility] ([id number]) [address] [place] [address] 24922 Protein [Mass/Vol] 5.0 g/dL Low 6.0-8.0 [facility] Comment on above: Performed By: #### C BCA, HA1C, CMP, TSHR, 2131-9, 6-4, FEPR, 2284-8, 47318-7 #### [facility] ([id number]) [address], [address] [place] [address] #### 85044-3 #### [facility] ([id number]) [address] [place] [address] 31845 Sodium [Moles/Vol] 134 mmol/L Normal 134-146 [facility] Comment on above: Performed By: #### C BCA, HA1C, CMP, TSHR, 2132-9, 2276-4, FEPR, 2284-8, 60893-1 #### [facility] ([id number]) [address], [address] [place] [address] #### 41853-9 #### [facility] ([id number]) [address] [place] [address] Urea nitrogen [Mass/Vol] 9 mg/dL Normal 5-27 [facility] Comment on above: Performed By: #### C BCA, HA1C, CMP, TSHR, 2131-9, 2276-4, FEPR, 2284-8, 02973-6 #### [facility] ([id number]) [address], [address] [place] [address] #### 54074-4 #### [facility] ([id number]) [address] [place] [address] HEMOGLOBIN AND HEMATOCRIT, B LOODon 10-19-2024 Hematocrit (Bld) [Volume fraction] 22.3 % Low 35-47 [facility] Comment on above: Performed By: #### C BCA, HA1C, CMP, TSHR, 2-9, 2276-4, FEPR, 2284-8, 35223-3 #### [facility] ([id number]) [address], [address] [place] [address] #### 17471-2 #### [facility] ([id number]) [address] [place] [address] Hemoglobin (Bld) [Mass/Vol] 7.6 g/dL Low 11.7-15.5 [facility] Comment on above: Performed By: #### C BCA, HA1C, CMP, TSHR, 2132-9, 2276-4, FEPR, 2284-8, 69261-3 #### [facility] ([id number]) [address], [address] [place] [address] #### 30623-6 #### [facility] ([id number]) [address] [place] [address] Hematocrit (Bld) [Volume fraction] 22.3 % Low 35-47 [facility] Comment on above: Performed By: #### C BCA, HA1C, CMP, TSHR, 2-9, 2276-4, FEPR, 2284-8, 39251-2 #### [facility] ([id number]) [address], [address] [place] [address] #### 69800-3 #### [facility] ([id number]) [address] [place] [address]756 Hemoglobin (Bld) [Mass/Vol] 7.6 g/dL Low 11.7-15.5 [facility] Comment on above: Performed By: #### C BCA, HA1C, CMP, TSHR, 2-9, 2276-4, FEPR, 2284-8, 73718-8 #### [facility] ([id number]) [address], [address] [place] [address] #### 98627-8 #### [facility] ([id number]) [address] [place] [address]108 LIPASEon 10-19-2024 Lipase [Catalytic activity/Vol] 64 U/L High 17-40 [facility] Comment on above: Performed By: #### C BCA, HA1C, CMP, TSHR, 2-9, 2276-4, FEPR, 2284-8, 52091-7 #### [facility] ([id number]) [address], [address] [place] [address] #### 58513-5 #### [facility] ([id number]) [address] [place] [address] MAGNESIUMon 10-19-2024 Magnesium [Mass/Vol] 2.1 mg/dL Normal 1.8-2.6 [facility] Comment on above: Performed By: #### C BCA, HA1C, CMP, TSHR, 2131-9, 2276-4, FEPR, 2284-8, 23152-6 #### [facility] ([id number]) [address], [address] [place] [address] #### 07830-3 #### [facility] ([id number]) [address] [place] [address] 27777 Magnesium [Mass/Vol] 1.7 mg/dL Low 1.8-2.6 [facility] Comment on above: Performed By: #### C BCA, HA1C, CMP, TSHR, 2131-10, 6-4, FEPR, 4-8, 91650-0 #### [facility] ([id number]) [address], [address] [place] [address] #### 19632-0 #### [facility] ([id number]) [address] [place] [address] PHOSPHORUSon 10-19-2024 Phosphate [Mass/Vol] 2.3 mg/dL Low 2.4-4.9 [facility] Comment on above: Performed By: #### C BCA, HA1C, CMP, TSHR, 9, 6-4, FEPR, 2284-8, 39840-1 #### [facility] ([id number]) [address], [address] [place] [address] #### 61768-6 #### [facility] ([id number]) [address] [place] [address]103 BEDSIDE GLUCOSEon 10-18-2024 Glucose [Mass/Vol] 199 mg/dL High 65-99 [facility] Comment on above: Performed By: #### C BCA, HA1C, CMP, TSHR, 2132-9, 2276-4, FEPR, 2284-8, 52223-5 #### [facility] ([id number]) [address], [address] [place] [address] #### 29616-0 #### [facility] ([id number]) [address] [place] [address]2225 Glucose [Mass/Vol] 155 mg/dL High 65-99 [facility] Comment on above: Performed By: #### C BCA, HA1C, CMP, TSHR, 2-9, 2276-4, FEPR, 2284-8, 67558-4 #### [facility] ([id number]) [address], [address] [place] [address] #### 82842-9 #### [facility] ([id number]) [address] [place] [address] 84248 Glucose [Mass/Vol] 218 mg/dL High 65-99 [facility] Comment on above: Performed By: #### C BCA, HA1C, CMP, TSHR, 2131-9, 2276-4, FEPR, 2284-8, 15646-6 #### [facility] ([id number]) [address], [address] [place] [address] #### 77702-6 #### [facility] ([id number]) [address] [place] [address] 42566 CBC WITH AUTO DIFFERENTIALon 10-18-2024 BASOPHILS ABSOLUTE COUNT (10*3/UL) BY AUTOMATED COUNT 0.0 10*3/uL Normal 0.0-0.2 [facility] Comment on above: Performed By: #### C BCA, HA1C, CMP, TSHR, 2132-9, 2276-4, FEPR, 2284-8, 64971-3 #### [facility] ([id number]) [address], [address] [place] [address] #### 20058-4 #### [facility] ([id number]) [address] [place] [address] 07946 BASOPHILS RELATIVE PERCENT BY AUTOMATED COUNT 0.2 % Normal [facility] Comment on above: Performed By: #### C BCA, HA1C, CMP, TSHR, 2131-9, 2276-4, FEPR, 2284-8, 92815-1 #### [facility] ([id number]) [address], [address] [place] [address] #### 07258-9 #### [facility] ([id number]) [address] [place] [address] 18240 CELLAVISION DIFFERENTIAL TYPE AUTOMATED DIFFERENTIAL Normal [facility] Comment on above: Performed By: #### C BCA, HA1C, CMP, TSHR, 2131-, 6-4, FEPR, 4-8, 48964-8 #### [facility] ([id number]) [address], [address] [place] [address] #### 26558-2 #### [facility] ([id number]) [address] [place] [address] 05562 Eosinophils (Bld) [#/Vol] 0.1 10*3/uL Normal 0.0-0.4 [facility] Comment on above: Performed By: #### C BCA, HA1C, CMP, TSHR, 2131-9, 6-4, FEPR, 2284-8, 14338-4 #### [facility] ([id number]) [address], [address] [place] [address] #### 77960-5 #### [facility] ([id number]) [address] [place] [address] 36586 EOSINOPHILS RELATIVE PERCENT BY AUTOMATED COUNT 1.3 % Normal [facility] Comment on above: Performed By: #### C BCA, HA1C, CMP, TSHR, 2132-9, 2276-4, FEPR, 2284-8, 13554-9 #### [facility] ([id number]) [address], [facility] [address] [place] [address] #### 09270-0 #### [facility] ([id number]) [address] [place] [address] 43179 Erythrocyte distribution width (RBC) [Ratio] 16.7 % High 11.5-15 [facility] Comment on above: Performed By: #### C BCA, HA1C, CMP, TSHR, 2131-9, 2276-4, FEPR, 2284-8, 14457-1 #### [facility] ([id number]) [address] [address] #### 68419-6 #### [facility] ([id number]) [address] [place] [address] 49952 Hematocrit (Bld) [Volume fraction] 23.5 % Low 35-47 [facility] Comment on above: Performed By: #### C BCA, HA1C, CMP, TSHR, 2-9, 2276-4, FEPR, 2284-8, 32771-7 #### [facility] ([id number]) [address] [facility], [facility] [address] [place] [address] #### 26172-4 #### [facility] ([id number]) [address] [place] [address] 84925 Hemoglobin (Bld) [Mass/Vol] 8.2 g/dL Low 11.7-15.5 [facility] Comment on above: Performed By: #### C BCA, HA1C, CMP, TSHR, 2132-9, 2276-4, FEPR, 2284-8, 95029-4 #### [facility] ([id number]) [address] [address] [place] [address] #### 93145-6 #### [facility] ([id number]) [address] [place] [address] 10371 LYMPHOCYTES ABSOLUTE COUNT (10*3/UL) BY AUTOMATED COUNT 0.9 10*3/uL Low 1.0-3.5 [facility] Comment on above: Performed By: #### C BCA, HA1C, CMP, TSHR, 2131-9, 2276-4, FEPR, 2284-8, 79645-7 #### [facility] ([id number]) [address] [address] #### 86112-0 #### [facility] ([id number]) [address] [place] [address] 53221 LYMPHOCYTES RELATIVE PERCENT BY AUTOMATED COUNT 12.4 % Normal [facility] Comment on above: Performed By: #### C BCA, HA1C, CMP, TSHR, 2131-10, 6-4, FEPR, 2284-8, 43236-8 #### [facility] ([id number]) [address] [address] #### 17552-7 #### [facility] ([id number]) [address] [place] [address] 67734 MCH (RBC) [Entitic mass] 30.2 pg Normal 27-34 [facility] Comment on above: Performed By: #### C BCA, HA1C, CMP, TSHR, 2131-9, 6-4, FEPR, 2284-8, 13117-4 #### [facility] ([id number]) [address] [address] #### 35403-7 #### [facility] ([id number]) [address] [place] [address] 53027 MCHC (RBC) [Mass/Vol] 34.8 g/dL Normal 32-36 [facility] Comment on above: Performed By: #### C BCA, HA1C, CMP, TSHR, 2131-, 6-4, FEPR, 4-8, 74149-2 #### [facility] ([id number]) [address], [address] [place] [address] #### 77217-6 #### [facility] ([id number]) [address] [place] [address] 58744 MCV (RBC) [Entitic vol] 87 fL Normal 80-100 [facility] Comment on above: Performed By: #### C BCA, HA1C, CMP, TSHR, 2131-10, 6-, FEPR, 2283-8, 24731-6 #### [facility] ([id number]) [address] [facility], [address] [place] [address] #### 11942-2 #### [facility] ([id number]) [address] [place] [address] 99332 MONOCYTES ABSOLUTE COUNT (10*3/UL) BY AUTOMATED COUNT 0.9 10*3/uL Normal 0.0-0.9 [facility] Comment on above: Performed By: #### C BCA, HA1C, CMP, TSHR, 2131-10, 6-4, FEPR, 2283-8, 16051-6 #### [facility] ([id number]) [address] [facility], [address] [place] [address] #### 68479-5 #### [facility] ([id number]) [address] [place] [address] 21219 MONOCYTES RELATIVE PERCENT BY AUTOMATED COUNT 12.7 % Normal [facility] Comment on above: Performed By: #### C BCA, HA1C, CMP, TSHR, 2131-10, 6-4, FEPR, 2284-8, 50444-8 #### [facility] ([id number]) [address] [facility], [address] [place] [address] #### 22662-4 #### [facility] ([id number]) [address] [place] [address] 79593 NEUTROPHILS ABSOLUTE COUNT BY AUTOMATED COUNT 5.4 10*3/uL Normal 1.5-6.6 [facility] Comment on above: Performed By: #### C BCA, HA1C, CMP, TSHR, 2132-9, 2276-4, FEPR, 2284-8, 82084-7 #### [facility] ([id number]) [address] [facility], [address] [place] [address] #### 53268-1 #### [facility] ([id number]) [address] [place] [address] 95287 NEUTROPHILS RELATIVE PERCENT BY AUTOMATED COUNT 73.4 % Normal [facility] Comment on above: Performed By: #### C BCA, HA1C, CMP, TSHR, 2131-9, 2276-4, FEPR, 2284-8, 51667-5 #### [facility] ([id number]) [address] [facility], [address] [place] [address] #### 54111-1 #### [facility] ([id number]) [address] [place] [address] 98723 Platelet mean volume (Bld) [Entitic vol] 9.2 fL Normal 7-12 [facility] Comment on above: Performed By: #### C BCA, HA1C, CMP, TSHR, 2-9, 2276-4, FEPR, 2284-8, 88502-2 #### [facility] ([id number]) [address] [facility], [address] [place] [address] #### 33914-2 #### [facility] ([id number]) [address] [place] [address] 59956 Platelets (Bld) [#/Vol] 108 10*3/uL Low 150-450 [facility] Comment on above: Performed By: #### C BCA, HA1C, CMP, TSHR, 2131-9, 6-4, FEPR, 2284-8, 95799-5 #### [facility] ([id number]) [address], [address] [place] [address] #### 64895-2 #### [facility] ([id number]) [address] [place] [address] 69272 RBC COUNT 2.71 X10E12/L Low 3.8-5.2 [facility] Comment on above: Performed By: #### C BCA, HA1C, CMP, TSHR, 2131-10, 6-4, FEPR, 2284-8, 51396-4 #### [facility] ([id number]) [address], [address] [place] [address] #### 42512-3 #### [facility] ([id number]) [address] [place] [address] 87603 WBC (Bld) [#/Vol] 7.4 10*3/uL Normal 4-11 [facility] Comment on above: Performed By: #### C BCA, HA1C, CMP, TSHR, 2131-10, 6-4, FEPR, 4-8, 13597-8 #### [facility] ([id number]) [address], [address] [place] [address] #### 72122-2 #### [facility] ([id number]) [address] [place] [address] 78487 COMPREHENSIVE METABOLIC PANE Brock 10-18-2024 Albumin [Mass/Vol] 1.9 g/dL Low 3.2-5.3 [facility] Comment on above: Performed By: #### C BCA, HA1C, CMP, TSHR, 2131-9, 6-4, FEPR, 2284-8, 23519-1 #### [facility] ([id number]) [address] [facility], [address] [place] [address] #### 71879-5 #### [facility] ([id number]) [address] [place] [address] 32237 ALP [Catalytic activity/Vol] 175 U/L High 39-130 [facility] Comment on above: Performed By: #### C BCA, HA1C, CMP, TSHR, 2131-10, 6-4, FEPR, 2284-8, 69579-8 #### [facility] ([id number]) [address] [facility], [facility] [address] [place] [address] #### 58214-3 #### [facility] ([id number]) [address] [place] [address] 53790 ALT [Catalytic activity/Vol] 310 U/L High <=31 [facility] Comment on above: Performed By: #### C BCA, HA1C, CMP, TSHR, 2131-10, 6-4, FEPR, 2284-8, 94331-5 #### [facility] ([id number]) [address] [facility], [address] [place] [address] #### 62897-2 #### [facility] ([id number]) [address] [place] [address] 26186 Anion gap [Moles/Vol] 2 mmol/L Low 5-15 [facility] Comment on above: Performed By: #### C BCA, HA1C, CMP, TSHR, 2131-10, 6-4, FEPR, 2284-8, 30440-1 #### [facility] ([id number]) [address] [facility], [address] [place] [address] #### 68532-4 #### [facility] ([id number]) [address] [place] [address] 33551 AST [Catalytic activity/Vol] 148 U/L High <=41 [facility] Comment on above: Performed By: #### C BCA, HA1C, CMP, TSHR, 2131-10, 6-4, FEPR, 4-8, 30948-4 #### [facility] ([id number]) [address] [facility], [address] [place] [address] #### 59431-5 #### [facility] ([id number]) [address] [place] [address] 67308 Bilirubin [Mass/Vol] 1.4 mg/dL High 0.3-1.2 [facility] Comment on above: Performed By: #### C BCA, HA1C, CMP, TSHR, 2131-10, 2275-05, FEPR, 2283-, 08846-0 #### [facility] ([id number]) [address] [facility], [address] [place] [address] #### 92858-4 #### [facility] ([id number]) [address] [place] [address] 09567 Calcium [Mass/Vol] 7.3 mg/dL Low 8.5-10.5 [facility] Comment on above: Performed By: #### C BCA, HA1C, CMP, TSHR, 2131-10, 2275-05, FEPR, 2283-8, 18384-7 #### [facility] ([id number]) [address] [facility], [address] [place] [address] #### 86554-5 #### [facility] ([id number]) [address] [place] [address] 30374 Chloride [Moles/Vol] 111 mmol/L High 98-109 [facility] Comment on above: Performed By: #### C BCA, HA1C, CMP, TSHR, 2132-9, 2276-4, FEPR, 2284-8, 12596-1 #### [facility] ([id number]) [address], [address] [place] [address] #### 18284-2 #### [facility] ([id number]) [address] [place] [address] CO2 [Moles/Vol] 21 mmol/L Low 22-32 [facility] Comment on above: Performed By: #### C BCA, HA1C, CMP, TSHR, 2131-9, 2276-4, FEPR, 2284-8, 01332-6 #### [facility] ([id number]) [address], [address] [place] [address] #### 67811-7 #### [facility] ([id number]) [address] [place] [address] 66972 Creatinine [Mass/Vol] 0.67 mg/dL Normal 0.40-1.00 [facility] Comment on above: Result Comment: METH OD TRACEABLE TO IDMS STANDARD Performed By: #### C BCA, HA1C, CMP, TSHR, 2131-9, 6-4, FEPR, 2284-8, 90722-4 #### [facility] ([id number]) [address], [address] [place] [address] #### 97267-0 #### [facility] ([id number]) [address] [place] [address] 00990 EGFR (CKD-EPI) NON-RACE DEPENDENT >^90 Normal >=60 [facility] Comment on above: Result Comment: Repo rted eGFR is based on the CKD-EPI 2020 equation that does not use a race coefficient. Performed By: #### C BCA, HA1C, CMP, TSHR, 2-9, 2276-4, FEPR, 2284-8, 49863-9 #### [facility] ([id number]) [address], [address] [place] [address] #### 00998-6 #### [facility] ([id number]) [address] [place] [address] 36448 Glucose [Mass/Vol] 167 mg/dL High 65-99 [facility] Comment on above: Performed By: #### C BCA, HA1C, CMP, TSHR, 2131-9, 2276-4, FEPR, 2284-8, 12129-5 #### [facility] ([id number]) [address] [facility], [address] [place] [address] #### 02188-3 #### [facility] ([id number]) [address] [place] [address] 17910 Potassium [Moles/Vol] 4.2 mmol/L Normal 3.5-5.0 [facility] Comment on above: Performed By: #### C BCA, HA1C, CMP, TSHR, 2131-10, 6-4, FEPR, 4-8, 12178-0 #### [facility] ([id number]) [address] [facility], [address] [place] [address] #### 40085-9 #### [facility] ([id number]) [address] [place] [address] 68432 Protein [Mass/Vol] 5.3 g/dL Low 6.0-8.0 [facility] Comment on above: Performed By: #### C BCA, HA1C, CMP, TSHR, 2131-10, 6-4, FEPR, 2284-8, 23862-8 #### [facility] ([id number]) [address], [address] [place] [address] #### 62286-9 #### [facility] ([id number]) [address] [place] [address] 21729 Sodium [Moles/Vol] 134 mmol/L Normal 134-146 [facility] Comment on above: Performed By: #### C BCA, HA1C, CMP, TSHR, 9, 6-4, FEPR, 2284-8, 81269-4 #### [facility] ([id number]) [address], [address] [place] [address] #### 79817-1 #### [facility] ([id number]) [address] [place] [address] 46051 Urea nitrogen [Mass/Vol] 9 mg/dL Normal 5-27 [facility] Comment on above: Performed By: #### C BCA, HA1C, CMP, TSHR, 2131-10, 6-4, FEPR, 2284-8, 37421-7 #### [facility] ([id number]) [address] [facility], [address] [place] [address] #### 46872-5 #### [facility] ([id number]) [address] [place] [address] 47819 HEMOGLOBIN AND HEMATOCRIT, B LOODon 10-18-2024 Hematocrit (Bld) [Volume fraction] 23.8 % Low 35-47 [facility] Comment on above: Performed By: #### C BCA, HA1C, CMP, TSHR, 2131-10, 6-4, FEPR, 4-8, 31603-7 #### [facility] ([id number]) [address] [facility], [address] [place] [address] #### 31790-5 #### [facility] ([id number]) [address] [place] [address] 93348 Hemoglobin (Bld) [Mass/Vol] 8.1 g/dL Low 11.7-15.5 [facility] Comment on above: Performed By: #### C BCA, HA1C, CMP, TSHR, 2131-10, 6-4, FEPR, 2284-8, 96960-1 #### [facility] ([id number]) [address], [address] [place] [address] #### 15721-0 #### [facility] ([id number]) [address] [place] [address] 24657 Hematocrit (Bld) [Volume fraction] 24.6 % Low 35-47 [facility] Comment on above: Performed By: #### C BCA, HA1C, CMP, TSHR, 2131-10, 6-4, FEPR, 2283-, 38196-1 #### [facility] ([id number]) [address], [address] [place] [address] #### 68626-0 #### [facility] ([id number]) [address] [place] [address] 35753 Hemoglobin (Bld) [Mass/Vol] 8.5 g/dL Low 11.7-15.5 [facility] Comment on above: Performed By: #### C BCA, HA1C, CMP, TSHR, 2131-10, 2275-, FEPR, 2283-09, 87571-6 #### [facility] ([id number]) [address], [address] [place] [address] #### 50568-3 #### [facility] ([id number]) [address] [place] [address] 34809 MAGNESIUMon 10-18-2024 Magnesium [Mass/Vol] 2.1 mg/dL Normal 1.8-2.6 [facility] Comment on above: Performed By: #### C BCA, HA1C, CMP, TSHR, 2131-10, 2275-, FEPR, 2283-, 13735-8 #### [facility] ([id number]) [address], [address] [place] [address] #### 84119-4 #### [facility] ([id number]) [address] [place] [address] 71700 Magnesium [Mass/Vol] 1.9 mg/dL Normal 1.8-2.6 [facility] Comment on above: Performed By: #### C BCA, HA1C, CMP, TSHR, 2132-9, 2276-4, FEPR, 2284-8, 48232-7 #### [facility] ([id number]) [address] [facility], [address] [place] [address] #### 99112-6 #### [facility] ([id number]) [address] [place] [address] 58747 PHOSPHORUSon 10-18-2024 Phosphate [Mass/Vol] 1.6 mg/dL Low 2.4-4.9 [facility] Comment on above: Performed By: #### C BCA, HA1C, CMP, TSHR, 2-9, 2276-4, FEPR, 2284-8, 33058-7 #### [facility] ([id number]) [address] [facility], [address] [place] [address] #### 48072-1 #### [facility] ([id number]) [address] [place] [address] 82067 BEDSIDE GLUCOSEon 10-17-2024 Glucose [Mass/Vol] 169 mg/dL High 65-99 [facility] Comment on above: Performed By: #### C BCA, HA1C, CMP, TSHR, 2132-9, 2276-4, FEPR, 2284-8, 65219-0 #### [facility] ([id number]) [address] [facility], [address] [place] [address] #### 59421-1 #### [facility] ([id number]) [address] [place] [address] 78754 Glucose [Mass/Vol] 80 mg/dL Normal 65-99 [facility] Comment on above: Performed By: #### C BCA, HA1C, CMP, TSHR, 2132-9, 2276-4, FEPR, 2284-8, 04293-1 #### [facility] ([id number]) [facility], [address] [place] [address] #### 93362-5 #### [facility] ([id number]) [address] [place] [address] 67414 CBC WITH AUTO DIFFERENTIALon 10-17-2024 BASOPHILS ABSOLUTE COUNT (10*3/UL) BY AUTOMATED COUNT 0.0 10*3/uL Normal 0.0-0.2 [facility] Comment on above: Performed By: #### C BCA, HA1C, CMP, TSHR, 2132-9, 2276-4, FEPR, 2284-8, 48531-5 #### [facility] ([id number]) [address] [place] [address] #### 60029-1 #### [facility] ([id number]) [address] [place] [address] 05876 BASOPHILS RELATIVE PERCENT BY AUTOMATED COUNT 0.2 % Normal [facility] Comment on above: Performed By: #### C BCA, HA1C, CMP, TSHR, 2132-9, 2276-4, FEPR, 2284-8, 57243-0 #### [facility] ([id number]) [address] [place] [address], [address] [place] [address] #### 20637-5 #### [facility] ([id number]) [address] [place] [address] 76528 CELLAVISION DIFFERENTIAL TYPE AUTOMATED DIFFERENTIAL Normal [facility] Comment on above: Performed By: #### C BCA, HA1C, CMP, TSHR, 2132-9, 2276-4, FEPR, 2284-8, 43623-2 #### [facility] ([id number]) [address] [place] [address], [address] [place] [address] #### 30008-9 #### [facility] ([id number]) [address] [place] [address] 02960 Eosinophils (Bld) [#/Vol] 0.2 10*3/uL Normal 0.0-0.4 [facility] Comment on above: Performed By: #### C BCA, HA1C, CMP, TSHR, 2131-9, 2276-4, FEPR, 2284-8, 69410-7 #### [facility] ([id number]) [address] [address] #### 35942-4 #### [facility] ([id number]) [address] [place] [address] EOSINOPHILS RELATIVE PERCENT BY AUTOMATED COUNT 1.7 % Normal [facility] Comment on above: Performed By: #### C BCA, HA1C, CMP, TSHR, 2131-10, 6-4, FEPR, 4-8, 99668-6 #### [facility] ([id number]) [address] [address] #### 45736-0 #### [facility] ([id number]) [address] [place] [address] Erythrocyte distribution width (RBC) [Ratio] 17.3 % High 11.5-15 [facility] Comment on above: Performed By: #### C BCA, HA1C, CMP, TSHR, 2131-10, 6-4, FEPR, 2284-8, 66524-5 #### [facility] ([id number]) [address] [address] [place] [address] #### 15659-9 #### [facility] ([id number]) [address] [place] [address] Hematocrit (Bld) [Volume fraction] 20.9 % Low 35-47 [facility] Comment on above: Performed By: #### C BCA, HA1C, CMP, TSHR, 2131-10, 6-4, FEPR, 4-8, 90492-0 #### [facility] ([id number]) [address], [address] [place] [address] #### 80581-1 #### [facility] ([id number]) [address] [place] [address] Hemoglobin (Bld) [Mass/Vol] 7.1 g/dL Low 11.7-15.5 [facility] Comment on above: Performed By: #### C BCA, HA1C, CMP, TSHR, 2131-10, 2275-05, FEPR, 2283-8, 01849-6 #### [facility] ([id number]) [address], [address] [place] [address] #### 57545-8 #### [facility] ([id number]) [address] [place] [address] LYMPHOCYTES ABSOLUTE COUNT (10*3/UL) BY AUTOMATED COUNT 1.0 10*3/uL Normal 1.0-3.5 [facility] Comment on above: Performed By: #### C BCA, HA1C, CMP, TSHR, 2131-10, 4, FEPR, 2283-09, 68613-0 #### [facility] ([id number]) [address], [address] [place] [address] #### 99859-3 #### [facility] ([id number]) [address] [place] [address] LYMPHOCYTES RELATIVE PERCENT BY AUTOMATED COUNT 10.8 % Normal [facility] Comment on above: Performed By: #### C BCA, HA1C, CMP, TSHR, 2131-10, 6-, FEPR, 2284-8, 18295-3 #### [facility] ([id number]) [address] [facility], [address] [place] [address] #### 40129-4 #### [facility] ([id number]) [address] [place] [address] MCH (RBC) [Entitic mass] 29.8 pg Normal 27-34 [facility] Comment on above: Performed By: #### C BCA, HA1C, CMP, TSHR, 2131-9, 6-4, FEPR, 2284-8, 29220-3 #### [facility] ([id number]) [address] [facility], [address] [place] [address] #### 31798-4 #### [facility] ([id number]) [address] [place] [address] MCHC (RBC) [Mass/Vol] 33.9 g/dL Normal 32-36 [facility] Comment on above: Performed By: #### C BCA, HA1C, CMP, TSHR, 2131-10, 6-4, FEPR, 4-8, 61862-5 #### [facility] ([id number]) [address] [facility], [address] [place] [address] #### 34051-7 #### [facility] ([id number]) [address] [place] [address] MCV (RBC) [Entitic vol] 88 fL Normal 80-100 [facility] Comment on above: Performed By: #### C BCA, HA1C, CMP, TSHR, 2131-10, 6-4, FEPR, 4-8, 05921-3 #### [facility] ([id number]) [address] [facility], [address] [place] [address] #### 83881-8 #### [facility] ([id number]) [address] [place] [address] MONOCYTES ABSOLUTE COUNT (10*3/UL) BY AUTOMATED COUNT 0.9 10*3/uL Normal 0.0-0.9 [facility] Comment on above: Performed By: #### C BCA, HA1C, CMP, TSHR, 2-9, 2276-4, FEPR, 2284-8, 84593-6 #### [facility] ([id number]) [address] [place] [address], [address] [place] [address] #### 66587-0 #### [facility] ([id number]) [address] [place] [address] MONOCYTES RELATIVE PERCENT BY AUTOMATED COUNT 10.0 % Normal [facility] Comment on above: Performed By: #### C BCA, HA1C, CMP, TSHR, 2131-10, 6-4, FEPR, 2284-8, 62255-0 #### [facility] ([id number]) [address] [place] [address], [address] [place] [address] #### 95567-7 #### [facility] ([id number]) [address] [place] [address] NEUTROPHILS ABSOLUTE COUNT BY AUTOMATED COUNT 7.0 10*3/uL High 1.5-6.6 [facility] Comment on above: Performed By: #### C BCA, HA1C, CMP, TSHR, 2131-10, 6-4, FEPR, 2284-8, 76468-0 #### [facility] ([id number]) [address] [place] [address], [address] [place] [address] #### 93510-0 #### [facility]. [facility] ([id number]) [address] [place] [address] 74923 NEUTROPHILS RELATIVE PERCENT BY AUTOMATED COUNT 77.3 % Normal [facility] Comment on above: Performed By: #### C BCA, HA1C, CMP, TSHR, 2131-9, 2276-4, FEPR, 2284-8, 37473-0 #### [facility] ([id number]) [address], [address] [place] [address] #### 54889-2 #### [facility] ([id number]) [address] [place] [address] 38361 Platelet mean volume (Bld) [Entitic vol] 8.5 fL Normal 7-12 [facility] Comment on above: Performed By: #### C BCA, HA1C, CMP, TSHR, 2131-9, 6-4, FEPR, 2283-8, 64175-4 #### [facility] ([id number]) [address], [address] [place] [address] #### 32077-1 #### [facility] ([id number]) [address] [place] [address] 76702 Platelets (Bld) [#/Vol] 125 10*3/uL Low 150-450 [facility] Comment on above: Performed By: #### C BCA, HA1C, CMP, TSHR, 2131-9, 6-4, FEPR, 2283-, 99306-7 #### [facility] ([id number]) [address], [address] [place] [address] #### 15276-2 #### [facility] ([id number]) [address] [place] [address] 71183 RBC COUNT 2.37 X10E12/L Low 3.8-5.2 [facility] Comment on above: Performed By: #### C BCA, HA1C, CMP, TSHR, 2131-9, 6-4, FEPR, 4-, 78232-2 #### [facility] ([id number]) [address], [address] [place] [address] #### 79253-8 #### [facility] ([id number]) [address] [place] [address] 77570 WBC (Bld) [#/Vol] 9.1 10*3/uL Normal 4-11 [facility] Comment on above: Performed By: #### C BCA, HA1C, CMP, TSHR, 2131-9, 2276-4, FEPR, 2284-8, 96387-2 #### [facility] ([id number]) [address] [facility], [address] [place] [address] #### 95414-7 #### [facility] ([id number]) [address] [place] [address] 81894 COMPREHENSIVE METABOLIC PANE Brock 10-17-2024 Albumin [Mass/Vol] 2.1 g/dL Low 3.2-5.3 [facility] Comment on above: Performed By: #### C BCA, HA1C, CMP, TSHR, 9, 6-4, FEPR, 2284-8, 18622-7 #### [facility] ([id number]) [address] [facility], [address] [place] [address] #### 69957-5 #### [facility] ([id number]) [address] [place] [address] 26978 ALP [Catalytic activity/Vol] 165 U/L High 39-130 [facility] Comment on above: Performed By: #### C BCA, HA1C, CMP, TSHR, 2131-9, 2276-4, FEPR, 2284-8, 68933-8 #### [facility] ([id number]) [address] [facility], [address] [place] [address] #### 32721-5 #### [facility] ([id number]) [address] [place] [address] 34687 ALT [Catalytic activity/Vol] 382 U/L High <=31 [facility] Comment on above: Performed By: #### C BCA, HA1C, CMP, TSHR, 2131-9, 6-4, FEPR, 2284-8, 82336-1 #### [facility] ([id number]) [address], [address] [place] [address] #### 23461-5 #### [facility] ([id number]) [address] [place] [address] 63203 Anion gap [Moles/Vol] 6 mmol/L Normal 5-15 [facility] Comment on above: Performed By: #### C BCA, HA1C, CMP, TSHR, 2131-9, 6-4, FEPR, 2284-8, 98492-0 #### [facility] ([id number]) [address], [address] [place] [address] #### 12197-0 #### [facility] ([id number]) [address] [place] [address] 62408 AST [Catalytic activity/Vol] 76 U/L High <=41 [facility] Comment on above: Performed By: #### C BCA, HA1C, CMP, TSHR, 2131-, 6-4, FEPR, 2284-8, 19387-6 #### [facility] ([id number]) [address], [address] [place] [address] #### 65723-8 #### [facility] ([id number]) [address] [place] [address] 43736 Bilirubin [Mass/Vol] 1.7 mg/dL High 0.3-1.2 [facility] Comment on above: Performed By: #### C BCA, HA1C, CMP, TSHR, 2131-9, 6-4, FEPR, 2284-8, 11794-3 #### [facility] ([id number]) [address], [address] [place] [address] #### 08992-6 #### [facility] ([id number]) [address] [place] [address] 60823 Calcium [Mass/Vol] 7.2 mg/dL Low 8.5-10.5 [facility] Comment on above: Performed By: #### C BCA, HA1C, CMP, TSHR, 2-9, 2276-4, FEPR, 2284-8, 06169-5 #### [facility] ([id number]) [address] [facility], [address] [place] [address] #### 91315-8 #### [facility] ([id number]) [address] [place] [address] 61751 Chloride [Moles/Vol] 112 mmol/L High 98-109 [facility] Comment on above: Performed By: #### C BCA, HA1C, CMP, TSHR, 2131-, 6-4, FEPR, 4-8, 31789-4 #### [facility] ([id number]) [address] [facility], [address] [place] [address] #### 34268-0 #### [facility] ([id number]) [address] [place] [address] 38360 CO2 [Moles/Vol] 20 mmol/L Low 22-32 [facility] Comment on above: Performed By: #### C BCA, HA1C, CMP, TSHR, 2131-, 6-4, FEPR, 2284-8, 22190-6 #### [facility] ([id number]) [address] [facility], [address] [place] [address] #### 50000-9 #### [facility] ([id number]) [address] [place] [address] 09767 Creatinine [Mass/Vol] 0.63 mg/dL Normal 0.40-1.00 [facility] Comment on above: Result Comment: METH OD TRACEABLE TO IDMS STANDARD Performed By: #### C BCA, HA1C, CMP, TSHR, 2131-9, 2276-4, FEPR, 2284-8, 86503-1 #### [facility] ([id number]) [address] [place] [address], [address] [address] #### 01843-1 #### [facility] ([id number]) [address] [place] [address] 94143 EGFR (CKD-EPI) NON-RACE DEPENDENT >^90 Normal >=60 [facility] Comment on above: Result Comment: eGFR not reported due to non-numeric value for Creatinine. Reported eGFR is based on the CKD-EPI 2020 equation that does not use a race coefficient. Performed By: #### C BCA, HA1C, CMP, TSHR, 2131-10, 6-4, FEPR, 2284-8, 61880-2 #### [facility] ([id number]) [address] [place] [address] #### 44903-6 #### [facility] ([id number]) [address] [place] [address] 70207 Glucose [Mass/Vol] 101 mg/dL High 65-99 [facility] Comment on above: Performed By: #### C BCA, HA1C, CMP, TSHR, 2131-10, 6-4, FEPR, 2284-8, 77009-9 #### [facility] ([id number]) [address] [place] [address], [address] [place] [address] #### 70414-1 #### [facility] ([id number]) [address] [place] [address] 38409 Potassium [Moles/Vol] 3.6 mmol/L Normal 3.5-5.0 [facility] Comment on above: Performed By: #### C BCA, HA1C, CMP, TSHR, 9, 6-4, FEPR, 2284-8, 97751-8 #### [facility] ([id number]) [address], [address] [place] [address] #### 49828-8 #### [facility] ([id number]) [address] [place] [address] 04842 Protein [Mass/Vol] 5.1 g/dL Low 6.0-8.0 [facility] Comment on above: Performed By: #### C BCA, HA1C, CMP, TSHR, 2131-9, 6-4, FEPR, 2284-8, 20577-6 #### [facility] ([id number]) [address], [address] [place] [address] #### 92142-4 #### [facility] ([id number]) [address] [place] [address] 23959 Sodium [Moles/Vol] 138 mmol/L Normal 134-146 [facility] Comment on above: Performed By: #### C BCA, HA1C, CMP, TSHR, 2131-, 6-4, FEPR, 2284-8, 28130-2 #### [facility] ([id number]) [address], [address] [place] [address] #### 43244-9 #### [facility] ([id number]) [address] [place] [address] 26473 Urea nitrogen [Mass/Vol] 10 mg/dL Normal 5-27 [facility] Comment on above: Performed By: #### C BCA, HA1C, CMP, TSHR, 2131-10, 6-4, FEPR, 2284-8, 62491-5 #### [facility] ([id number]) [address], [address] [place] [address] #### 20167-3 #### [facility] ([id number]) [address] [place] [address] HEMOGLOBIN AND HEMATOCRIT, B LOODon 10-17-2024 Hematocrit (Bld) [Volume fraction] 26.3 % Low 35-47 [facility] Comment on above: Performed By: #### C BCA, HA1C, CMP, TSHR, 2-9, 2276-4, FEPR, 2284-8, 17403-2 #### [facility] ([id number]) [address], [address] [place] [address] #### 79905-6 #### [facility] ([id number]) [address] [place] [address] 41546 Hemoglobin (Bld) [Mass/Vol] 9.0 g/dL Low 11.7-15.5 [facility] Comment on above: Performed By: #### C BCA, HA1C, CMP, TSHR, 2131-10, 6-4, FEPR, 2284-8, 53779-2 #### [facility] ([id number]) [address], [address] [place] [address] #### 86550-0 #### [facility] ([id number]) [address] [place] [address] 43964 Hematocrit (Bld) [Volume fraction] 19.3 % Low 35-47 [facility] Comment on above: Performed By: #### C BCA, HA1C, CMP, TSHR, 2131-10, 6-4, FEPR, 2284-8, 95077-4 #### [facility] ([id number]) [address], [address] [place] [address] #### 60222-8 #### [facility] ([id number]) [address] [place] [address] 87894 Hemoglobin (Bld) [Mass/Vol] 6.5 g/dL Critically low 11.7-15.5 [facility] Comment on above: Performed By: #### C BCA, HA1C, CMP, TSHR, 2131-9, 6-4, FEPR, 2284-8, 98126-5 #### [facility] ([id number]) [address], [address] [place] [address] #### 24183-5 #### [facility] ([id number]) [address] [place] [address] 22711 MAGNESIUMon 10-17-2024 Magnesium [Mass/Vol] 2.2 mg/dL Normal 1.8-2.6 [facility] Comment on above: Performed By: #### C BCA, HA1C, CMP, TSHR, 2131-10, 6-4, FEPR, 2283-8, 07142-0 #### [facility] ([id number]) [address] [facility], [address] [place] [address] #### 38406-0 #### [facility] ([id number]) [address] [place] [address] 63453 Magnesium [Mass/Vol] 1.9 mg/dL Normal 1.8-2.6 [facility] Comment on above: Performed By: #### C BCA, HA1C, CMP, TSHR, 2131-10, 6-4, FEPR, 4-8, 91147-5 #### [facility] ([id number]) [address], [address] [place] [address] #### 75834-6 #### [facility] ([id number]) [address] [place] [address] 59475 POTASSIUMon 10-17-2024 Potassium [Moles/Vol] 4.0 mmol/L Normal 3.5-5.0 [facility] Comment on above: Performed By: #### C BCA, HA1C, CMP, TSHR, 9, 6-4, FEPR, 2284-8, 08432-5 #### [facility] ([id number]) [address], [address] [place] [address] #### 39321-4 #### [facility] ([id number]) [address] [place] [address] 56588 CBC WITH AUTO DIFFERENTIALon 10-16-2024 BASOPHILS ABSOLUTE COUNT (10*3/UL) BY AUTOMATED COUNT 0.0 10*3/uL Normal 0.0-0.2 [facility] Comment on above: Performed By: #### C BCA, HA1C, CMP, TSHR, 2132-9, 2276-4, FEPR, 2284-8, 58308-4 #### [facility] ([id number]) [address] [facility], [address] [place] [address] #### 70625-7 #### [facility] ([id number]) [address] [place] [address] 73454 BASOPHILS RELATIVE PERCENT BY AUTOMATED COUNT 0.2 % Normal [facility] Comment on above: Performed By: #### C BCA, HA1C, CMP, TSHR, 2132-9, 2276-4, FEPR, 2284-8, 61670-8 #### [facility] ([id number]) [address] [facility], [address] [place] [address] #### 97251-1 #### [facility] ([id number]) [address] [place] [address] 77083 CELLAVISION DIFFERENTIAL TYPE AUTOMATED DIFFERENTIAL Normal [facility] Comment on above: Performed By: #### C BCA, HA1C, CMP, TSHR, 2132-9, 2276-4, FEPR, 2284-8, 20217-0 #### [facility] ([id number]) [address] [facility], [address] [place] [address] #### 13179-4 #### [facility] ([id number]) [address] [place] [address] 90041 Eosinophils (Bld) [#/Vol] 0.2 10*3/uL Normal 0.0-0.4 [facility] Comment on above: Performed By: #### C BCA, HA1C, CMP, TSHR, 2131-9, 2276-4, FEPR, 2284-8, 34208-7 #### [facility] ([id number]) [address] [facility], [address] [address] #### 64085-1 #### [facility] ([id number]) [address] [place] [address] 06850 EOSINOPHILS RELATIVE PERCENT BY AUTOMATED COUNT 1.6 % Normal [facility] Comment on above: Performed By: #### C BCA, HA1C, CMP, TSHR, 2131-10, 6-4, FEPR, 2284-8, 52933-7 #### [facility] ([id number]) [address] [facility], [address] [place] [address] #### 31826-9 #### [facility] ([id number]) [address] [place] [address] 33356 Erythrocyte distribution width (RBC) [Ratio] 17.1 % High 11.5-15 [facility] Comment on above: Performed By: #### C BCA, HA1C, CMP, TSHR, 2131-10, 6-4, FEPR, 2284-8, 19772-4 #### [facility] ([id number]) [address] [facility], [address] [place] [address] #### 43070-3 #### [facility] ([id number]) [address] [place] [address] 13371 Hematocrit (Bld) [Volume fraction] 19.3 % Low 35-47 [facility] Comment on above: Performed By: #### C BCA, HA1C, CMP, TSHR, 2131-10, 6-4, FEPR, 2284-8, 19649-5 #### [facility] ([id number]) [address], [address] [place] [address] #### 99828-3 #### [facility] ([id number]) [address] [place] [address] 93077 Hemoglobin (Bld) [Mass/Vol] 6.5 g/dL Critically low 11.7-15.5 [facility] Comment on above: Performed By: #### C BCA, HA1C, CMP, TSHR, 2131-9, 6-4, FEPR, 4-8, 97512-5 #### [facility] ([id number]) [address], [address] [place] [address] #### 07927-9 #### [facility] ([id number]) [address] [place] [address] 96670 LYMPHOCYTES ABSOLUTE COUNT (10*3/UL) BY AUTOMATED COUNT 1.2 10*3/uL Normal 1.0-3.5 [facility] Comment on above: Performed By: #### C BCA, HA1C, CMP, TSHR, 2131-10, 6-4, FEPR, 4-8, 34047-1 #### [facility] ([id number]) [address], [address] [place] [address] #### 59527-5 #### [facility] ([id number]) [address] [place] [address] 67952 LYMPHOCYTES RELATIVE PERCENT BY AUTOMATED COUNT 9.5 % Normal [facility] Comment on above: Performed By: #### C BCA, HA1C, CMP, TSHR, 2131-10, 6-4, FEPR, 4-8, 09355-0 #### [facility] ([id number]) [address], [address] [place] [address] #### 99559-5 #### [facility] ([id number]) [address] [place] [address] 98304 MCH (RBC) [Entitic mass] 29.3 pg Normal 27-34 [facility] Comment on above: Performed By: #### C BCA, HA1C, CMP, TSHR, 2131-, 6-4, FEPR, 4-8, 73367-6 #### [facility] ([id number]) [address], [address] [place] [address] #### 13770-1 #### [facility] ([id number]) [address] [place] [address] 83836 MCHC (RBC) [Mass/Vol] 33.8 g/dL Normal 32-36 [facility] Comment on above: Performed By: #### C BCA, HA1C, CMP, TSHR, 2131-10, 6-, FEPR, 2283-, 42595-3 #### [facility] ([id number]) [address], [address] [place] [address] #### 81664-4 #### [facility] ([id number]) [address] [place] [address] 42282 MCV (RBC) [Entitic vol] 87 fL Normal 80-100 [facility] Comment on above: Performed By: #### C BCA, HA1C, CMP, TSHR, 2131-10, 6-, FEPR, 2283-8, 17914-3 #### [facility] ([id number]) [address], [address] [place] [address] #### 12961-8 #### [facility] ([id number]) [address] [place] [address] 68368 MONOCYTES ABSOLUTE COUNT (10*3/UL) BY AUTOMATED COUNT 0.7 10*3/uL Normal 0.0-0.9 [facility] Comment on above: Performed By: #### C BCA, HA1C, CMP, TSHR, 2132-9, 2276-4, FEPR, 2284-8, 57703-0 #### [facility] ([id number]) [address], [address] [place] [address] #### 21247-7 #### [facility] ([id number]) [address] [place] [address] 22657 MONOCYTES RELATIVE PERCENT BY AUTOMATED COUNT 5.3 % Normal [facility] Comment on above: Performed By: #### C BCA, HA1C, CMP, TSHR, 2-9, 2276-4, FEPR, 2284-8, 29396-1 #### [facility] ([id number]) [address], [address] [place] [address] #### 05809-5 #### [facility] ([id number]) [address] [place] [address] 41740 NEUTROPHILS ABSOLUTE COUNT BY AUTOMATED COUNT 10.2 10*3/uL High 1.5-6.6 [facility] Comment on above: Performed By: #### C BCA, HA1C, CMP, TSHR, 2-9, 2276-4, FEPR, 2284-8, 65069-1 #### [facility] ([id number]) [address], [address] [place] [address] #### 96737-0 #### [facility] ([id number]) [address] [place] [address] 90952 NEUTROPHILS RELATIVE PERCENT BY AUTOMATED COUNT 83.4 % Normal [facility] Comment on above: Performed By: #### C BCA, HA1C, CMP, TSHR, 2-9, 2276-4, FEPR, 2284-8, 26949-8 #### [facility] ([id number]) [address], [address] [place] [address] #### 74722-3 #### [facility] ([id number]) [address] [place] [address] 86202 Platelet mean volume (Bld) [Entitic vol] 8.5 fL Normal 7-12 [facility] Comment on above: Performed By: #### C BCA, HA1C, CMP, TSHR, 2132-9, 2276-4, FEPR, 2284-8, 82732-6 #### [facility] ([id number]) [address] [facility], [address] [place] [address] #### 79713-2 #### [facility] ([id number]) [address] [place] [address] 61294 Platelets (Bld) [#/Vol] 131 10*3/uL Low 150-450 [facility] Comment on above: Performed By: #### C BCA, HA1C, CMP, TSHR, 2131-9, 2276-4, FEPR, 2284-8, 52247-0 #### [facility] ([id number]) [address] [facility], [address] [place] [address] #### 25960-1 #### [facility] ([id number]) [address] [place] [address] 92215 RBC COUNT 2.23 X10E12/L Low 3.8-5.2 [facility] Comment on above: Performed By: #### C BCA, HA1C, CMP, TSHR, 2132-9, 2276-4, FEPR, 2284-8, 86363-2 #### [facility] ([id number]) [address] [facility], [address] [place] [address] #### 63018-0 #### [facility] ([id number]) [address] [place] [address] 30881 WBC (Bld) [#/Vol] 12.3 10*3/uL High 4-11 [facility] Comment on above: Performed By: #### C BCA, HA1C, CMP, TSHR, 2132-9, 2276-4, FEPR, 2284-8, 18371-3 #### [facility] ([id number]) [address] [facility], [address] [place] [address] #### 25113-0 #### [facility] ([id number]) [address] [place] [address] COMPREHENSIVE METABOLIC PANE Brock 10-16-2024 Albumin [Mass/Vol] 2.0 g/dL Low 3.2-5.3 [facility] Comment on above: Performed By: #### C BCA, HA1C, CMP, TSHR, 2-9, 2276-4, FEPR, 2284-8, 46084-9 #### [facility] ([id number]) [address] [facility], [address] [place] [address] #### 80155-5 #### [facility] ([id number]) [address] [place] [address] 68468 ALP [Catalytic activity/Vol] 152 U/L High 39-130 [facility] Comment on above: Performed By: #### C BCA, HA1C, CMP, TSHR, 2-9, 2276-4, FEPR, 2284-8, 50082-9 #### [facility] ([id number]) [address] [facility], [address] [place] [address] #### 86138-8 #### [facility] ([id number]) [address] [place] [address] 42304 ALT [Catalytic activity/Vol] 563 U/L High <=31 [facility] Comment on above: Performed By: #### C BCA, HA1C, CMP, TSHR, 2132-9, 2276-4, FEPR, 2284-8, 56241-4 #### [facility] ([id number]) [address], [address] [place] [address] #### 32560-5 #### [facility] ([id number]) [address] [place] [address]30 Anion gap [Moles/Vol] 4 mmol/L Low 5-15 [facility] Comment on above: Performed By: #### C BCA, HA1C, CMP, TSHR, 2131-9, 2276-4, FEPR, 2284-8, 29454-2 #### [facility] ([id number]) [address], [address] [place] [address] #### 84236-0 #### [facility] ([id number]) [address] [place] [address] 99168 AST [Catalytic activity/Vol] 73 U/L High <=41 [facility] Comment on above: Performed By: #### C BCA, HA1C, CMP, TSHR, 2131-10, 6-4, FEPR, 2284-8, 40323-6 #### [facility] ([id number]) [address], [address] [place] [address] #### 03323-3 #### [facility] ([id number]) [address] [place] [address] 14618 Bilirubin [Mass/Vol] 1.6 mg/dL High 0.3-1.2 [facility] Comment on above: Performed By: #### C BCA, HA1C, CMP, TSHR, 2131-10, 6-4, FEPR, 2284-8, 36979-2 #### [facility] ([id number]) [address], [address] [place] [address] #### 14630-0 #### [facility] ([id number]) [address] [place] [address] 25431 Calcium [Mass/Vol] 7.2 mg/dL Low 8.5-10.5 [facility] Comment on above: Performed By: #### C BCA, HA1C, CMP, TSHR, 2131-9, 6-4, FEPR, 2284-8, 62333-1 #### [facility] ([id number]) [address], [address] [place] [address] #### 02286-2 #### [facility] ([id number]) [address] [place] [address] 71428 Chloride [Moles/Vol] 118 mmol/L High 98-109 [facility] Comment on above: Performed By: #### C BCA, HA1C, CMP, TSHR, 2131-10, 6-4, FEPR, 2284-8, 50163-3 #### [facility] ([id number]) [address], [address] [place] [address] #### 91703-9 #### [facility] ([id number]) [address] [place] [address] 43374 CO2 [Moles/Vol] 21 mmol/L Low 22-32 [facility] Comment on above: Performed By: #### C BCA, HA1C, CMP, TSHR, 2131-10, 6-4, FEPR, 2284-8, 85467-0 #### [facility] ([id number]) [address], [address] [place] [address] #### 79527-8 #### [facility] ([id number]) [address] [place] [address] 25883 Creatinine [Mass/Vol] 0.62 mg/dL Normal 0.40-1.00 [facility] Comment on above: Result Comment: METH OD TRACEABLE TO IDMS STANDARD Performed By: #### C BCA, HA1C, CMP, TSHR, 2131-9, 6-4, FEPR, 2284-8, 98299-7 #### [facility] ([id number]) [address], [address] [place] [address] #### 60578-9 #### [facility] ([id number]) [address] [place] [address] 70744 EGFR (CKD-EPI) NON-RACE DEPENDENT >^90 Normal >=60 [facility] Comment on above: Result Comment: eGFR not reported due to non-numeric value for Creatinine. Reported eGFR is based on the CKD-EPI 2020 equation that does not use a race coefficient. Performed By: #### C BCA, HA1C, CMP, TSHR, 2131-10, 6-4, FEPR, 2283-, 76431-3 #### [facility] ([id number]) [address], [address] [place] [address] #### 91693-5 #### [facility] ([id number]) [address] [place] [address] 89633 Glucose [Mass/Vol] 138 mg/dL High 65-99 [facility] Comment on above: Performed By: #### C BCA, HA1C, CMP, TSHR, 2131-10, 2275-, FEPR, 2283-09, 80242-2 #### [facility] ([id number]) [address], [address] [place] [address] #### 30630-2 #### [facility] ([id number]) [address] [place] [address] 45144 Potassium [Moles/Vol] 3.1 mmol/L Low 3.5-5.0 [facility] Comment on above: Performed By: #### C BCA, HA1C, CMP, TSHR, 2131-10, 6-4, FEPR, 2284-8, 05522-9 #### [facility] ([id number]) [address], [address] [place] [address] #### 30960-4 #### [facility] ([id number]) [address] [place] [address] 24093 Protein [Mass/Vol] 5.1 g/dL Low 6.0-8.0 [facility] Comment on above: Performed By: #### C BCA, HA1C, CMP, TSHR, 2132-9, 2276-4, FEPR, 2284-8, 89916-2 #### [facility] ([id number]) [address], [address] [place] [address] #### 48246-3 #### [facility] ([id number]) [address] [place] [address] 49907 Sodium [Moles/Vol] 143 mmol/L Normal 134-146 [facility] Comment on above: Performed By: #### C BCA, HA1C, CMP, TSHR, 2131-9, 6-4, FEPR, 2284-8, 83545-0 #### [facility] ([id number]) [address] [facility], [address] [place] [address] #### 36033-5 #### [facility] ([id number]) [address] [place] [address] 82405 Urea nitrogen [Mass/Vol] 11 mg/dL Normal 5-27 [facility] Comment on above: Performed By: #### C BCA, HA1C, CMP, TSHR, 2131-9, 2276-4, FEPR, 2284-8, 54940-4 #### [facility] ([id number]) [address] [facility], [address] [place] [address] #### 48027-2 #### [facility] ([id number]) [address] [place] [address] 38705 HEMOGLOBINon 10-16-2024 Hemoglobin (Bld) [Mass/Vol] 7.0 g/dL Low 11.7-15.5 [facility] Comment on above: Performed By: #### C BCA, HA1C, CMP, TSHR, 2131-9, 6-4, FEPR, 2284-8, 24199-2 #### [facility] ([id number]) [address], [address] [place] [address] #### 74084-6 #### [facility] ([id number]) [address] [place] [address] 25476 HEMOGLOBIN AND HEMATOCRIT, B LOODon 10-16-2024 Hematocrit (Bld) [Volume fraction] 22.1 % Low 35-47 [facility] Comment on above: Performed By: #### C BCA, HA1C, CMP, TSHR, 9, 6-4, FEPR, 4-8, 68623-0 #### [facility] ([id number]) [address] [facility], [address] [place] [address] #### 02592-0 #### [facility] ([id number]) [address] [place] [address] 39092 Hemoglobin (Bld) [Mass/Vol] 7.2 g/dL Low 11.7-15.5 [facility] Comment on above: Performed By: #### C BCA, HA1C, CMP, TSHR, 2131-9, 6-4, FEPR, 2284-8, 02946-1 #### [facility] ([id number]) [address] [facility], [address] [place] [address] #### 94633-1 #### [facility] ([id number]) [address] [place] [address] 93566 LIPASEon 10-16-2024 Lipase [Catalytic activity/Vol] 54 U/L High 17-40 [facility] Comment on above: Performed By: #### C BCA, HA1C, CMP, TSHR, 2131-9, 6-4, FEPR, 2284-8, 51162-2 #### [facility] ([id number]) [address], [address] [place] [address] #### 50887-1 #### [facility] ([id number]) [address] [facility], [place] [address] MAGNESIUMon 10-16-2024 Magnesium [Mass/Vol] 2.1 mg/dL Normal 1.8-2.6 [facility] Comment on above: Performed By: #### C BCA, HA1C, CMP, TSHR, 2132-9, 2276-4, FEPR, 2284-8, 05894-7 #### [facility] ([id number]) [address] [facility], [address] [place] [address] #### 12486-4 #### [facility] ([id number]) [address] [facility], [place] [address] MR BRAIN WO CONTon MR BRAIN WO CONT MR BRAIN WO CONT HISTORY: A 64-year-old female with a history [...] Zenon Doss MD on 10/16/2024 2:51 PM Normal [facility] MR MRCP WITH MRI ABD WO CONT on 10-16-2024 MR MRCP WITH MRI ABD WO CONT MR MRCP WITH MRI ABD WO CONT MRI ABDOMEN AND MRCP WITHOUT CONTRAST HISTORY: [...] Tommy Michelle MD on 10/16/2024 4:12 PM Normal [facility] OCCULT BLOOD X 1, STOOLon FECAL OCCULT BLOOD Positive Abnormal Negative [facility] Comment on above: Performed By: #### C BCA, HA1C, CMP, TSHR, 2132-9, 2276-4, FEPR, 2284-8, 91263-8 #### [facility] ([id number]) [address] [facility], [address] [place] [address] #### 47120-4 #### [facility] ([id number]) [address] [place] [address] 72220 PHOSPHORUSon 10-16-2024 Phosphate [Mass/Vol] 1.6 mg/dL Low 2.4-4.9 [facility] Comment on above: Performed By: #### C BCA, HA1C, CMP, TSHR, 2131-10, 2276-4, FEPR, 2284-8, 57281-4 #### [facility] ([id number]) [address] [place] [address], [address] [place] [address] #### 30911-5 #### [facility] ([id number]) [address] [place] [address] 22239 Phosphate [Mass/Vol] 1.6 mg/dL Low 2.4-4.9 [facility] Comment on above: Performed By: #### C BCA, HA1C, CMP, TSHR, 2131-10, 6-4, FEPR, 4-8, 86000-6 #### [facility] ([id number]) [address] [place] [address], [address] [place] [address] #### 32827-7 #### [facility] ([id number]) [address] [place] [address] POTASSIUMon 10-16-2024 Potassium [Moles/Vol] 3.6 mmol/L Normal 3.5-5.0 [facility] Comment on above: Performed By: #### C BCA, HA1C, CMP, TSHR, 2131-10, 6-4, FEPR, 2284-8, 45543-7 #### [facility] ([id number]) [address] [place] [address], [address] [place] [address] #### 62763-1 #### [facility] ([id number]) [address] [place] [address] 76918 Potassium [Moles/Vol] 3.2 mmol/L Low 3.5-5.0 [facility] Comment on above: Performed By: #### C BCA, HA1C, CMP, TSHR, 2132-9, 2276-4, FEPR, 2284-8, 08086-0 #### [facility] ([id number]) [address], [address] [place] [address] #### 68206-0 #### [facility] ([id number]) [address] [place] [address] 87722 Potassium [Moles/Vol] 3.4 mmol/L Low 3.5-5.0 [facility] Comment on above: Performed By: #### C BCA, HA1C, CMP, TSHR, 2-9, 2276-4, FEPR, 2284-8, 84018-4 #### [facility] ([id number]) [address], [address] [place] [address] #### 64495-9 #### [facility] ([id number]) [address] [place] [address] 12518 TYPE AND SCREENon 10-16-2024 ABO_INTEP AB Normal [facility] Comment on above: Performed By: #### C BCA, HA1C, CMP, TSHR, 2-9, 2276-4, FEPR, 2284-8, 88873-7 #### [facility] ([id number]) [address], [address] [place] [address] #### 74800-5 #### [facility] ([id number]) [address] [place] [address] 66488 RH_INTEP Positive Normal [facility] Comment on above: Performed By: #### C BCA, HA1C, CMP, TSHR, 2-9, 2276-4, FEPR, 2284-8, 83535-5 #### [facility] ([id number]) [address] [place] [address], [address] [place] [address] #### 10235-2 #### [facility] ([id number]) [address] [place] [address] 44597 CBC WITH AUTO DIFFERENTIALon 10-15-2024 CELLAVISION BASOPHILS ABSOLUTE COUNT (10*3/UL) BY MANUAL COUNT 0.0 10*3/uL Normal 0.0-0.2 [facility] Comment on above: Result Comment: This is an appended report. These results have been appended to a previously preliminary verified report. Performed By: #### C BCA, HA1C, CMP, TSHR, 2132-9, 2276-4, FEPR, 2284-8, 77559-1 #### [facility] ([id number]) [address] [place] [address], [address] [place] [address] #### 62248-7 #### [facility] ([id number]) [address] [place] [address] 38025 CELLAVISION BASOPHILS RELATIVE PERCENT BY MANUAL COUNT 0 % Normal [facility] Comment on above: Result Comment: This is an appended report. These results have been appended to a previously preliminary verified report. Performed By: #### C BCA, HA1C, CMP, TSHR, 2132-9, 2276-4, FEPR, 2284-8, 14728-7 #### [facility] ([id number]) [address] [place] [address], [address] [place] [address] #### 55896-5 #### [facility] ([id number]) [address] [place] [address] 33494 CELLAVISION JASVIR CELLS IN BLOOD BY LIGHT MICROSCOPY 2+ Normal [facility] Comment on above: Result Comment: This is an appended report. These results have been appended to a previously preliminary verified report. Performed By: #### C BCA, HA1C, CMP, TSHR, 2132-9, 2276-4, FEPR, 2284-8, 93304-3 #### [facility] ([id number]) [address] [facility], [address] [place] [address] #### 65318-6 #### [facility] ([id number]) [address] [place] [address] 88942 CELLAVISION DIFFERENTIAL TYPE MANUAL DIFFERENTIAL Normal [facility] Comment on above: Result Comment: This is an appended report. These results have been appended to a previously preliminary verified report. Performed By: #### C BCA, HA1C, CMP, TSHR, 2131-9, 6-4, FEPR, 4-8, 53847-2 #### [facility] ([id number]) [address] [facility], [address] [place] [address] #### 04062-5 #### [facility] ([id number]) [address] [place] [address] 81541 CELLAVISION EOSINOPHILS ABSOLUTE COUNT (10*3/UL) BY MANUAL COUNT 0.0 10*3/uL Normal 0.0-0.4 [facility] Comment on above: Result Comment: This is an appended report. These results have been appended to a previously preliminary verified report. Performed By: #### C BCA, HA1C, CMP, TSHR, 2131-9, 6-4, FEPR, 4-8, 14690-4 #### [facility] ([id number]) [address] [facility], [address] [place] [address] #### 48185-9 #### [facility] ([id number]) [address] [place] [address] 11668 CELLAVISION EOSINOPHILS PERCENT BY MANUAL COUNT 0 % Normal [facility] Comment on above: Result Comment: This is an appended report. These results have been appended to a previously preliminary verified report. Performed By: #### C BCA, HA1C, CMP, TSHR, 2-9, 6-4, FEPR, 2284-8, 86251-8 #### [facility] ([id number]) [address], [address] [place] [address] #### 16593-2 #### [facility] ([id number]) [address] [place] [address] CELLAVISION HYPOCHROMIA IN BLOOD BY LIGHT MICROSCOPY 2+ Normal [facility] Comment on above: Result Comment: This is an appended report. These results have been appended to a previously preliminary verified report. Performed By: #### C BCA, HA1C, CMP, TSHR, 2131-, 2275-4, FEPR, 4-8, 73380-2 #### [facility] ([id number]) [address], [address] [place] [address] #### 56141-1 #### [facility] ([id number]) [address] [place] [address] 25606 CELLAVISION LYMPHOCYTES ABSOLUTE COUNT (10*3/UL) BY MANUAL COUNT 1.1 10*3/uL Normal 1.0-3.5 [facility] Comment on above: Result Comment: This is an appended report. These results have been appended to a previously preliminary verified report. Performed By: #### C BCA, HA1C, CMP, TSHR, 2131-10, 2275-4, FEPR, 2283-8, 18601-6 #### [facility] ([id number]) [address], [address] [place] [address] #### 09741-7 #### [facility] ([id number]) [address] [place] [address] 89038 CELLAVISION LYMPHOCYTES RELATIVE PERCENT BY MANUAL COUNT 5 % Normal [facility] Comment on above: Result Comment: This is an appended report. These results have been appended to a previously preliminary verified report. Performed By: #### C BCA, HA1C, CMP, TSHR, 2131-, 2275-4, FEPR, 2284-8, 06531-8 #### [facility] ([id number]) [address] [place] [address], [address] [place] [address] #### 31953-8 #### [facility] ([id number]) [address] [place] [address] 58578 CELLAVISION MONOCYTES ABSOLUTE COUNT (10*3/UL) IN BLOOD BY MANUAL COUNT 0.2 10*3/uL Normal 0.0-0.9 [facility] Comment on above: Result Comment: This is an appended report. These results have been appended to a previously preliminary verified report. Performed By: #### C BCA, HA1C, CMP, TSHR, 2-9, 2276-4, FEPR, 2284-8, 77808-0 #### [facility] ([id number]) [address] [place] [address], [address] [place] [address] #### 02034-8 #### [facility] ([id number]) [address] [place] [address] 65213 CELLAVISION MONOCYTES RELATIVE PERCENT BY MANUAL COUNT 1 % Normal [facility] Comment on above: Result Comment: This is an appended report. These results have been appended to a previously preliminary verified report. Performed By: #### C BCA, HA1C, CMP, TSHR, 2131-9, 6-4, FEPR, 2284-8, 23381-9 #### [facility] ([id number]) [address] [place] [address], [address] [place] [address] #### 23611-5 #### [facility] ([id number]) [address] [place] [address] 33157 CELLAVISION MYELOCYTE RELATIVE PERCENT BY MANUAL COUNT 1 % Normal [facility] Comment on above: Result Comment: This is an appended report. These results have been appended to a previously preliminary verified report. Performed By: #### C BCA, HA1C, CMP, TSHR, 2132-9, 2276-4, FEPR, 2284-8, 36114-4 #### [facility] ([id number]) [address], [address] [place] [address] #### 98887-8 #### [facility] ([id number]) [address] [place] [address] 72409 CELLAVISION NEUTROPHILS ABSOLUTE COUNT BY MANUAL COUNT 22.5 10*3/uL High 1.5-6.6 [facility] Comment on above: Result Comment: This is an appended report. These results have been appended to a previously preliminary verified report. Performed By: #### C BCA, HA1C, CMP, TSHR, 2-9, 2276-4, FEPR, 2284-8, 41686-9 #### [facility] ([id number]) [address] [facility], [address] [place] [address] #### 17467-4 #### [facility] ([id number]) [address] [place] [address] 49284 CELLAVISION NEUTROPHILS RELATIVE PERCENT BY MANUAL COUNT 94 % Normal [facility] Comment on above: Result Comment: This is an appended report. These results have been appended to a previously preliminary verified report. Performed By: #### C BCA, HA1C, CMP, TSHR, 2-9, 2276-4, FEPR, 2284-8, 83250-6 #### [facility] ([id number]) [address] [facility], [address] [place] [address] #### 82911-3 #### [facility] ([id number]) [address] [place] [address] 49494 CELLAVISION NUCLEATED RED BLOOD CELLS IN BLOOD BY LIGHT MICROSCOPY 1 Normal [facility] Comment on above: Result Comment: This is an appended report. These results have been appended to a previously preliminary verified report. Performed By: #### C BCA, HA1C, CMP, TSHR, 2132-9, 2276-4, FEPR, 2284-8, 91773-2 #### [facility] ([id number]) [address], [address] [place] [address] #### 34703-8 #### [facility] ([id number]) [address] [place] [address] 66004 CELLAVISION TOXIC GRANULES IN BLOOD BY LIGHT MICROSCOPY 2+ Normal [facility] Comment on above: Result Comment: This is an appended report. These results have been appended to a previously preliminary verified report. Performed By: #### C BCA, HA1C, CMP, TSHR, 2132-9, 2276-4, FEPR, 2284-8, 27169-0 #### [facility] ([id number]) [address] [facility], [address] [place] [address] #### 48593-6 #### [facility] ([id number]) [address] [place] [address] 99291 Erythrocyte distribution width (RBC) [Ratio] 16.5 % High 11.5-15 [facility] Comment on above: Performed By: #### C BCA, HA1C, CMP, TSHR, 2132-9, 2276-4, FEPR, 2284-8, 90320-9 #### [facility] ([id number]) [address], [address] [place] [address] #### 54361-2 #### [facility] ([id number]) [address] [place] [address] 38055 Hematocrit (Bld) [Volume fraction] 22.4 % Low 35-47 [facility] Comment on above: Performed By: #### C BCA, HA1C, CMP, TSHR, 2132-9, 2276-4, FEPR, 2284-8, 25834-8 #### [facility] ([id number]) [address], [address] [place] [address] #### 01106-4 #### [facility] ([id number]) [address] [place] [address] Hemoglobin (Bld) [Mass/Vol] 7.3 g/dL Low 11.7-15.5 [facility] Comment on above: Performed By: #### C BCA, HA1C, CMP, TSHR, 2-9, 2276-4, FEPR, 2284-8, 62221-3 #### [facility] ([id number]) [address], [address] [place] [address] #### 66585-2 #### [facility] ([id number]) [address] [place] [address] 67806 MCH (RBC) [Entitic mass] 29.1 pg Normal 27-34 [facility] Comment on above: Performed By: #### C BCA, HA1C, CMP, TSHR, 2131-9, 6-4, FEPR, 2284-8, 27551-8 #### [facility] ([id number]) [address], [address] [place] [address] #### 24085-3 #### [facility] ([id number]) [address] [place] [address] 44622 MCHC (RBC) [Mass/Vol] 32.6 g/dL Normal 32-36 [facility] Comment on above: Performed By: #### C BCA, HA1C, CMP, TSHR, 2-9, 6-4, FEPR, 2284-8, 20512-5 #### [facility] ([id number]) [address], [address] [place] [address] #### 19001-6 #### [facility] ([id number]) [address] [place] [address] 77693 MCV (RBC) [Entitic vol] 89 fL Normal 80-100 [facility] Comment on above: Performed By: #### C BCA, HA1C, CMP, TSHR, 2-9, 2276-4, FEPR, 2284-8, 98031-0 #### [facility] ([id number]) [address], [address] [place] [address] #### 92400-7 #### [facility] ([id number]) [address] [place] [address] 77559 Platelet mean volume (Bld) [Entitic vol] 8.4 fL Normal 7-12 [facility] Comment on above: Performed By: #### C BCA, HA1C, CMP, TSHR, 2131-, 6-4, FEPR, 4-8, 21461-5 #### [facility] ([id number]) [address], [address] [place] [address] #### 26448-5 #### [facility] ([id number]) [address] [place] [address] 24663 Platelets (Bld) [#/Vol] 156 10*3/uL Normal 150-450 [facility] Comment on above: Performed By: #### C BCA, HA1C, CMP, TSHR, 2131-, 6-4, FEPR, 4-8, 60471-0 #### [facility] ([id number]) [address], [address] [place] [address] #### 75382-2 #### [facility] ([id number]) [address] [place] [address] 44577 RBC COUNT 2.50 X10E12/L Low 3.8-5.2 [facility] Comment on above: Performed By: #### C BCA, HA1C, CMP, TSHR, 2131-9, 2276-4, FEPR, 2284-8, 54024-4 #### [facility] ([id number]) [address], [address] [place] [address] #### 92896-3 #### [facility] ([id number]) [address] [place] [address] 19020 WBC (Bld) [#/Vol] 23.9 10*3/uL High 4-11 [facility] Comment on above: Performed By: #### C BCA, HA1C, CMP, TSHR, 2131-10, 6-4, FEPR, 2284-8, 91645-1 #### [facility] ([id number]) [address] [facility], [address] [place] [address] #### 43553-3 #### [facility] ([id number]) [address] [place] [address] 89053 COMPREHENSIVE METABOLIC PANE Brock 10-15-2024 Albumin [Mass/Vol] 2.5 g/dL Low 3.2-5.3 [facility] Comment on above: Performed By: #### C BCA, HA1C, CMP, TSHR, 2131-10, 6-, FEPR, 2284-8, 56591-5 #### [facility] ([id number]) [address] [facility], [address] [place] [address] #### 79928-3 #### [facility] ([id number]) [address] [place] [address] 63508 ALP [Catalytic activity/Vol] 163 U/L High 39-130 [facility] Comment on above: Performed By: #### C BCA, HA1C, CMP, TSHR, 2131-10, 6-4, FEPR, 2284-8, 12569-1 #### [facility] ([id number]) [address] [facility], [address] [place] [address] #### 04907-3 #### [facility] ([id number]) [address] [place] [address] 48688 ALT [Catalytic activity/Vol] 892 U/L High <=31 [facility] Comment on above: Performed By: #### C BCA, HA1C, CMP, TSHR, 2131-9, 6-4, FEPR, 2284-8, 43189-6 #### [facility] ([id number]) [address] [facility], [address] [place] [address] #### 14376-5 #### [facility] ([id number]) [address] [place] [address] 00913 Anion gap [Moles/Vol] 7 mmol/L Normal 5-15 [facility] Comment on above: Performed By: #### C BCA, HA1C, CMP, TSHR, 2131-10, 6-4, FEPR, 4-8, 00587-7 #### [facility] ([id number]) [address] [facility], [address] [place] [address] #### 83834-3 #### [facility] ([id number]) [address] [place] [address] 10039 AST [Catalytic activity/Vol] 108 U/L High <=41 [facility] Comment on above: Performed By: #### C BCA, HA1C, CMP, TSHR, 2131-10, 6-4, FEPR, 2284-8, 04641-1 #### [facility] ([id number]) [address] [facility], [address] [place] [address] #### 87811-3 #### [facility] ([id number]) [address] [place] [address] 03597 Bilirubin [Mass/Vol] 2.3 mg/dL High 0.3-1.2 [facility] Comment on above: Performed By: #### C BCA, HA1C, CMP, TSHR, 2132-9, 2276-4, FEPR, 2284-8, 48378-7 #### [facility] ([id number]) [address], [address] [place] [address] #### 13421-5 #### [facility] ([id number]) [address] [place] [address] 88107 Calcium [Mass/Vol] 7.4 mg/dL Low 8.5-10.5 [facility] Comment on above: Performed By: #### C BCA, HA1C, CMP, TSHR, 2131-10, 6-4, FEPR, 2284-8, 99592-5 #### [facility] ([id number]) [address], [address] [place] [address] #### 12710-8 #### [facility] ([id number]) [address] [place] [address]8914 Chloride [Moles/Vol] 121 mmol/L High 98-109 [facility] Comment on above: Performed By: #### C BCA, HA1C, CMP, TSHR, 2131-10, 6-4, FEPR, 2284-8, 11590-9 #### [facility] ([id number]) [address], [address] [place] [address] #### 31786-5 #### [facility] ([id number]) [address] [place] [address]72 CO2 [Moles/Vol] 22 mmol/L Normal 22-32 [facility] Comment on above: Performed By: #### C BCA, HA1C, CMP, TSHR, 2131-, 6-4, FEPR, 2284-8, 49644-2 #### [facility] ([id number]) [address], [address] [place] [address] #### 82811-5 #### [facility] ([id number]) [address] [place] [address] Creatinine [Mass/Vol] 0.74 mg/dL Normal 0.40-1.00 [facility] Comment on above: Result Comment: METH OD TRACEABLE TO IDMS STANDARD Performed By: #### C BCA, HA1C, CMP, TSHR, 2132-9, 2276-4, FEPR, 2284-8, 10312-7 #### [facility] ([id number]) [address] [place] [address], [address] [address] #### 03160-1 #### [facility] ([id number]) [address] [place] [address] 19785 EGFR (CKD-EPI) NON-RACE DEPENDENT >^90 Normal >=60 [facility] Comment on above: Result Comment: eGFR not reported due to non-numeric value for Creatinine. Reported eGFR is based on the CKD-EPI 2020 equation that does not use a race coefficient. Performed By: #### C BCA, HA1C, CMP, TSHR, 2-9, 2276-4, FEPR, 2284-8, 71945-3 #### [facility] ([id number]) [address] [place] [address], [address] [address] #### 96532-3 #### [facility] ([id number]) [address] [place] [address]80 Glucose [Mass/Vol] 127 mg/dL High 65-99 [facility] Comment on above: Performed By: #### C BCA, HA1C, CMP, TSHR, 2132-9, 2276-4, FEPR, 2284-8, 43858-7 #### [facility] ([id number]) [address] [place] [address], [address] [address] #### 56016-0 #### [facility] ([id number]) [address] [place] [address] Potassium [Moles/Vol] 3.4 mmol/L Low 3.5-5.0 [facility] Comment on above: Performed By: #### C BCA, HA1C, CMP, TSHR, 2131-9, 6-4, FEPR, 4-8, 70559-5 #### [facility] ([id number]) [address], [address] [place] [address] #### 72240-1 #### [facility] ([id number]) [address] [place] [address]394 Protein [Mass/Vol] 5.6 g/dL Low 6.0-8.0 [facility] Comment on above: Performed By: #### C BCA, HA1C, CMP, TSHR, 2131-10, 6-4, FEPR, 2283-8, 20535-7 #### [facility] ([id number]) [address], [address] [place] [address] #### 49693-4 #### [facility] ([id number]) [address] [place] [address] Sodium [Moles/Vol] 150 mmol/L High 134-146 [facility] Comment on above: Performed By: #### C BCA, HA1C, CMP, TSHR, 2131-10, 6-4, FEPR, 2283-8, 43393-1 #### [facility] ([id number]) [address], [address] [place] [address] #### 68623-5 #### [facility] ([id number]) [address] [place] [address] [place] nitrogen [Mass/Vol] 21 mg/dL Normal 5-27 [facility] Comment on above: Performed By: #### C BCA, HA1C, CMP, TSHR, 2131-10, 6-4, FEPR, 4-8, 34855-4 #### [facility] ([id number]) [address], [address] [place] [address] #### 73959-1 #### [facility] ([id number]) [address] [place] [address] 31732 FOLATEon 10-15-2024 FOLIC ACID 12.7 ng/mL Normal >5.8 [facility] Comment on above: Performed By: #### C BCA, HA1C, CMP, TSHR, 2131-9, 2276-4, FEPR, 2284-8, 32644-5 #### [facility] ([id number]) [address] [facility], [address] [place] [address] #### 53874-9 #### [facility] ([id number]) [address] [place] [address] 85007 IONIZED CALCIUMon 10-15-2024 IONIZED CALCIUM - ICAN 4.5 mg/dL Normal 4.5-5.3 [facility] Comment on above: Performed By: #### C BCA, HA1C, CMP, TSHR, 2131-9, 6-4, FEPR, 2284-8, 81651-4 #### [facility] ([id number]) [address] [facility], [address] [place] [address] #### 26252-3 #### [facility] ([id number]) [address] [place] [address] 44476 LIPASEon 10-15-2024 Lipase [Catalytic activity/Vol] 71 U/L High 17-40 [facility] Comment on above: Performed By: #### C BCA, HA1C, CMP, TSHR, 2131-9, 6-4, FEPR, 2284-8, 18800-8 #### [facility] ([id number]) [address] [facility], [address] [place] [address] #### 97509-2 #### [facility] ([id number]) [address] [place] [address] 43557 MAGNESIUMon 10-15-2024 Magnesium [Mass/Vol] 2.6 mg/dL Normal 1.8-2.6 [facility] Comment on above: Performed By: #### C BCA, HA1C, CMP, TSHR, 2-9, 2276-4, FEPR, 2284-8, 37761-5 #### [facility] ([id number]) [address] [place] [address], [address] [place] [address] #### 25209-3 #### [facility] ([id number]) [address] [place] [address] 80441 PHOSPHORUSon 10-15-2024 Phosphate [Mass/Vol] 1.2 mg/dL Low 2.4-4.9 [facility] Comment on above: Performed By: #### C BCA, HA1C, CMP, TSHR, 2131-, 2276-4, FEPR, 2284-8, 18545-3 #### [facility] ([id number]) [address] [place] [address], [address] [place] [address] #### 31686-8 #### [facility] ([id number]) [address] [place] [address] 92146 SODIUMon 10-15-2024 Sodium [Moles/Vol] 149 mmol/L High 134-146 [facility] Comment on above: Performed By: #### C BCA, HA1C, CMP, TSHR, 2131-, 2276-4, FEPR, 2284-8, 83044-1 #### [facility] ([id number]) [address] [place] [address], [address] [place] [address] #### 92341-5 #### [facility] ([id number]) [address] [place] [address] 15448 THIAMIN (VITAMIN B1), WBon 0 10-15-2024 THIAMIN (VITAMIN B1), WB 270 nmol/L High 70-180 [facility] Comment on above: Result Comment: ADDITIONAL INFORMATION This test was developed and its performance characteristics determined by [facility] in a manner consistent with CLIA requirements. This test has not been cleared or approved by the U.S. Food and Drug Administration. Test Performed by: [facility] [address] [place] [address] Pulp And Paper Tester: Ester Macdonald Ph.D.; CLIA# [id number] Performed By: #### C BCA, HA1C, CMP, TSHR, 2132-9, 2276-4, FEPR, 2284-8, 57047-0 #### [facility] ([id number]) [address] [place] [address], [facility] [address] [place] [address] #### 35074-0 #### [facility] ([id number]) [address] [place] [address] 66083 THYROID PROFILE INCLUDES TSH FT4on 10-15-2024 Free T4 [Mass/Vol] 0.88 ng/dL Normal 0.61-1.60 [facility] Comment on above: Performed By: #### C BCA, HA1C, CMP, TSHR, 2-9, 2276-4, FEPR, 2284-8, 54212-4 #### [facility] ([id number]) [address] [place] [address], [address] [place] [address] #### 70042-7 #### [facility] ([id number]) [address] [place] [address] 34331 TSH 1.37 uIU/mL Normal 0.49-4.67 [facility] Comment on above: Performed By: #### C BCA, HA1C, CMP, TSHR, 2132-9, 2276-4, FEPR, 2284-8, 02485-1 #### [facility] ([id number]) [address] [facility], [address] [place] [address] #### 58807-7 #### [facility] ([id number]) [address] [place] [address] 00902 US ABDOMEN LMTDon 10-15-2024 US ABDOMEN LMTD US ABDOMEN LMTD US ABDOMEN LMTD HISTORY: Pancreatitis with distended [...] Sonographic Mcleod sign negative. Right pleural effusion. __ IMPRESSION: * Gallbladder sludge without other sonographic evidence of acute cholecystitis. * Borderline dilated CBD. * Right pleural effusion. Finalized by Bakari Roach on 10/15/2024 11:05 AM Normal [facility] VITAMIN B12on 10-15-2024 Cobalamin (Vitamin B12) [Mass/Vol] pg/mL High 180-914 [facility] Comment on above: Performed By: #### C BCA, HA1C, CMP, TSHR, 2131-10, 6-4, FEPR, 8, 61871-4 #### [facility] ([id number]) [address] [facility], [address] [place] [address] #### 86295-8 #### [facility] ([id number]) [address] [place] [address] 44321 AMMONIAon 10-14-2024 Ammonia (P) [Moles/Vol] 21 umol/L Normal 11-35 [facility] Comment on above: Performed By: #### C BCA, HA1C, CMP, TSHR, 2131-10, 2275-4, FEPR, 2284-8, 72842-8 #### [facility] ([id number]) [address], [address] [place] [address] #### 34930-0 #### [facility] ([id number]) [address] [place] [address] 23726 CBC WITH AUTO DIFFERENTIALon 10-14-2024 BASOPHILS ABSOLUTE COUNT (10*3/UL) BY AUTOMATED COUNT 0.0 10*3/uL Normal 0.0-0.2 [facility] Comment on above: Performed By: #### C BCA, HA1C, CMP, TSHR, 2-9, 2276-4, FEPR, 2284-8, 12191-4 #### [facility] ([id number]) [address], [address] [place] [address] #### 44997-4 #### [facility] ([id number]) [address] [place] [address] 98166 BASOPHILS RELATIVE PERCENT BY AUTOMATED COUNT 0.1 % Normal [facility] Comment on above: Performed By: #### C BCA, HA1C, CMP, TSHR, 2131-9, 2276-4, FEPR, 2284-8, 82894-8 #### [facility] ([id number]) [address], [address] [place] [address] #### 05560-9 #### [facility] ([id number]) [address] [place] [address] 51937 CELLAVISION DIFFERENTIAL TYPE AUTOMATED DIFFERENTIAL Normal [facility] Comment on above: Performed By: #### C BCA, HA1C, CMP, TSHR, 2-9, 2276-4, FEPR, 2284-8, 97962-1 #### [facility] ([id number]) [address], [address] [place] [address] #### 09560-8 #### [facility] ([id number]) [address] [place] [address] 72920 Eosinophils (Bld) [#/Vol] 0.0 10*3/uL Normal 0.0-0.4 [facility] Comment on above: Performed By: #### C BCA, HA1C, CMP, TSHR, 2131-9, 2276-4, FEPR, 2284-8, 28705-6 #### [facility] ([id number]) [address] [facility], [address] [place] [address] #### 06036-6 #### [facility] ([id number]) [address] [place] [address] 83847 EOSINOPHILS RELATIVE PERCENT BY AUTOMATED COUNT 0.0 % Normal [facility] Comment on above: Performed By: #### C BCA, HA1C, CMP, TSHR, 2131-10, 6-4, FEPR, 4-8, 38794-8 #### [facility] ([id number]) [address] [facility], [address] [place] [address] #### 93181-0 #### [facility] ([id number]) [address] [place] [address] 64953 Erythrocyte distribution width (RBC) [Ratio] 16.7 % High 11.5-15 [facility] Comment on above: Performed By: #### C BCA, HA1C, CMP, TSHR, 9, 6-4, FEPR, 4-8, 54915-2 #### [facility] ([id number]) [address] [facility], [address] [place] [address] #### 89502-2 #### [facility] ([id number]) [address] [place] [address] 14283 Hematocrit (Bld) [Volume fraction] 22.8 % Low 35-47 [facility] Comment on above: Performed By: #### C BCA, HA1C, CMP, TSHR, 2132-9, 2276-4, FEPR, 2284-8, 23277-8 #### [facility] ([id number]) [address], [address] [place] [address] #### 58733-6 #### [facility] ([id number]) [address] [place] [address] 55302 Hemoglobin (Bld) [Mass/Vol] 7.4 g/dL Low 11.7-15.5 [facility] Comment on above: Performed By: #### C BCA, HA1C, CMP, TSHR, 2-9, 2276-4, FEPR, 2284-8, 11741-1 #### [facility] ([id number]) [address], [address] [place] [address] #### 58641-9 #### [facility] ([id number]) [address] [place] [address] 04575 LYMPHOCYTES ABSOLUTE COUNT (10*3/UL) BY AUTOMATED COUNT 0.8 10*3/uL Low 1.0-3.5 [facility] Comment on above: Performed By: #### C BCA, HA1C, CMP, TSHR, 2-9, 2276-4, FEPR, 2284-8, 76890-1 #### [facility] ([id number]) [address], [address] [place] [address] #### 83096-4 #### [facility] ([id number]) [address] [place] [address] 47737 LYMPHOCYTES RELATIVE PERCENT BY AUTOMATED COUNT 4.1 % Normal [facility] Comment on above: Performed By: #### C BCA, HA1C, CMP, TSHR, 2-9, 2276-4, FEPR, 2284-8, 34809-1 #### [facility] ([id number]) [address], [address] [place] [address] #### 76702-1 #### [facility] ([id number]) [address] [place] [address] 15747 MCH (RBC) [Entitic mass] 28.9 pg Normal 27-34 [facility] Comment on above: Performed By: #### C BCA, HA1C, CMP, TSHR, 2-9, 2276-4, FEPR, 2284-8, 27371-4 #### [facility] ([id number]) [address] [facility], [address] [place] [address] #### 76584-8 #### [facility] ([id number]) [address] [place] [address] 57136 MCHC (RBC) [Mass/Vol] 32.6 g/dL Normal 32-36 [facility] Comment on above: Performed By: #### C BCA, HA1C, CMP, TSHR, 2131-10, 6-4, FEPR, 2283-, 89600-5 #### [facility] ([id number]) [address] [facility], [address] [place] [address] #### 13826-1 #### [facility] ([id number]) [address] [place] [address] 96539 MCV (RBC) [Entitic vol] 89 fL Normal 80-100 [facility] Comment on above: Performed By: #### C BCA, HA1C, CMP, TSHR, 2131-, 6-4, FEPR, 4-8, 79048-8 #### [facility] ([id number]) [address] [facility], [address] [place] [address] #### 95570-5 #### [facility] ([id number]) [address] [place] [address] 56840 MONOCYTES ABSOLUTE COUNT (10*3/UL) BY AUTOMATED COUNT 0.7 10*3/uL Normal 0.0-0.9 [facility] Comment on above: Performed By: #### C BCA, HA1C, CMP, TSHR, 2132-9, 2276-4, FEPR, 2284-8, 62832-9 #### [facility] ([id number]) [address], [address] [place] [address] #### 23480-2 #### [facility] ([id number]) [address] [place] [address] 78802 MONOCYTES RELATIVE PERCENT BY AUTOMATED COUNT 3.3 % Normal [facility] Comment on above: Performed By: #### C BCA, HA1C, CMP, TSHR, 2-9, 2276-4, FEPR, 2284-8, 91494-9 #### [facility] ([id number]) [address], [address] [place] [address] #### 67555-8 #### [facility] ([id number]) [address] [place] [address] 97792 NEUTROPHILS ABSOLUTE COUNT BY AUTOMATED COUNT 19.4 10*3/uL High 1.5-6.6 [facility] Comment on above: Performed By: #### C BCA, HA1C, CMP, TSHR, 2-9, 2276-4, FEPR, 2284-8, 77872-8 #### [facility] ([id number]) [address], [address] [place] [address] #### 05196-6 #### [facility] ([id number]) [address] [place] [address] 26052 NEUTROPHILS RELATIVE PERCENT BY AUTOMATED COUNT 92.5 % Normal [facility] Comment on above: Performed By: #### C BCA, HA1C, CMP, TSHR, 2-9, 2276-4, FEPR, 2284-8, 43607-6 #### [facility] ([id number]) [address] [facility], [address] [place] [address] #### 63003-3 #### [facility] ([id number]) [address] [place] [address] 38647 Platelet mean volume (Bld) [Entitic vol] 8.1 fL Normal 7-12 [facility] Comment on above: Performed By: #### C BCA, HA1C, CMP, TSHR, 2-9, 2276-4, FEPR, 2284-8, 28316-9 #### [facility] ([id number]) [address] [place] [address], [facility] [address] [place] [address] #### 42428-5 #### [facility] ([id number]) [address] [place] [address] 85350 Platelets (Bld) [#/Vol] 148 10*3/uL Low 150-450 [facility] Comment on above: Performed By: #### C BCA, HA1C, CMP, TSHR, 2131-9, 6-4, FEPR, 2284-8, 77106-2 #### [facility] ([id number]) [address] [place] [address] #### 03655-9 #### [facility] ([id number]) [address] [place] [address] 98778 RBC COUNT 2.58 X10E12/L Low 3.8-5.2 [facility] Comment on above: Performed By: #### C BCA, HA1C, CMP, TSHR, 2-9, 2276-4, FEPR, 2284-8, 32670-7 #### [facility] ([id number]) [address] [place] [address] #### 43566-7 #### [facility] ([id number]) [address] [place] [address] 17989 WBC (Bld) [#/Vol] 20.9 10*3/uL High 4-11 [facility] Comment on above: Performed By: #### C BCA, HA1C, CMP, TSHR, 2131-9, 2276-4, FEPR, 2284-8, 05545-4 #### [facility] ([id number]) [address] [facility], [address] [place] [address] #### 99549-8 #### [facility] ([id number]) [address] [place] [address] 68933 COMPREHENSIVE METABOLIC PANE Brock 10-14-2024 Albumin [Mass/Vol] 2.1 g/dL Low 3.2-5.3 [facility] Comment on above: Performed By: #### C BCA, HA1C, CMP, TSHR, 2131-9, 6-4, FEPR, 2284-8, 56230-7 #### [facility] ([id number]) [address] [facility], [address] [place] [address] #### 96272-4 #### [facility] ([id number]) [address] [place] [address] 86469 ALP [Catalytic activity/Vol] 158 U/L High 39-130 [facility] Comment on above: Performed By: #### C BCA, HA1C, CMP, TSHR, 2131-9, 6-4, FEPR, 2284-8, 53743-4 #### [facility] ([id number]) [address] [facility], [address] [place] [address] #### 26680-1 #### [facility] ([id number]) [address] [place] [address] 17253 ALT [Catalytic activity/Vol] 1145 U/L High <=31 [facility] Comment on above: Performed By: #### C BCA, HA1C, CMP, TSHR, 2131-9, 6-4, FEPR, 2284-8, 16714-2 #### [facility] ([id number]) [address], [address] [place] [address] #### 14575-2 #### [facility] ([id number]) [address] [place] [address] 04792 Anion gap [Moles/Vol] 1 mmol/L Low 5-15 [facility] Comment on above: Performed By: #### C BCA, HA1C, CMP, TSHR, 2131-9, 6-4, FEPR, 2284-8, 58843-3 #### [facility] ([id number]) [address] [facility], [address] [place] [address] #### 88812-0 #### [facility] ([id number]) [address] [place] [address] 10295 AST [Catalytic activity/Vol] 173 U/L High <=41 [facility] Comment on above: Performed By: #### C BCA, HA1C, CMP, TSHR, 2131-10, 6-4, FEPR, 2284-8, 28568-0 #### [facility] ([id number]) [address], [address] [place] [address] #### 88790-3 #### [facility] ([id number]) [address] [place] [address] 20375 Bilirubin [Mass/Vol] 2.3 mg/dL High 0.3-1.2 [facility] Comment on above: Performed By: #### C BCA, HA1C, CMP, TSHR, 2131-10, 6-4, FEPR, 2284-8, 51942-1 #### [facility] ([id number]) [address], [address] [place] [address] #### 10167-4 #### [facility] ([id number]) [address] [place] [address] 50669 Calcium [Mass/Vol] 6.8 mg/dL Critically low 8.5-10.5 [facility] Comment on above: Performed By: #### C BCA, HA1C, CMP, TSHR, 2131-9, 6-4, FEPR, 2284-8, 31770-7 #### [facility] ([id number]) [address] [facility], [address] [place] [address] #### 18859-6 #### [facility] ([id number]) [address] [place] [address] 45042 Chloride [Moles/Vol] 127 mmol/L Critically high 98-109 [facility] Comment on above: Performed By: #### C BCA, HA1C, CMP, TSHR, 2131-10, 6-4, FEPR, 2284-8, 14567-4 #### [facility] ([id number]) [address] [facility], [address] [place] [address] #### 27808-1 #### [facility] ([id number]) [address] [place] [address] 79440 CO2 [Moles/Vol] 19 mmol/L Low 22-32 [facility] Comment on above: Performed By: #### C BCA, HA1C, CMP, TSHR, 2131-10, 6-4, FEPR, 2284-8, 72455-0 #### [facility] ([id number]) [address] [facility], [address] [place] [address] #### 37217-0 #### [facility] ([id number]) [address] [place] [address] 44606 Creatinine [Mass/Vol] 0.72 mg/dL Normal 0.40-1.00 [facility] Comment on above: Result Comment: METH OD TRACEABLE TO IDMS STANDARD Performed By: #### C BCA, HA1C, CMP, TSHR, 2132-9, 2276-4, FEPR, 2284-8, 53679-8 #### [facility] ([id number]) [address], [address] [place] [address] #### 96535-4 #### [facility] ([id number]) [address] [place] [address] 09912 EGFR (CKD-EPI) NON-RACE DEPENDENT >^90 Normal >=60 [facility] Comment on above: Result Comment: Repo rted eGFR is based on the CKD-EPI 2020 equation that does not use a race coefficient. Performed By: #### C BCA, HA1C, CMP, TSHR, 2131-9, 6-4, FEPR, 2284-8, 96210-5 #### [facility] ([id number]) [address], [address] [place] [address] #### 71210-4 #### [facility] ([id number]) [address] [place] [address] 11573 Glucose [Mass/Vol] 96 mg/dL Normal 65-99 [facility] Comment on above: Performed By: #### C BCA, HA1C, CMP, TSHR, 2131-9, 6-4, FEPR, 2284-8, 83394-8 #### [facility] ([id number]) [address], [address] [place] [address] #### 86216-4 #### [facility] ([id number]) [address] [place] [address] 60795 Potassium [Moles/Vol] 3.5 mmol/L Normal 3.5-5.0 [facility] Comment on above: Performed By: #### C BCA, HA1C, CMP, TSHR, 2131-9, 2276-4, FEPR, 2284-8, 10430-3 #### [facility] ([id number]) [address], [address] [place] [address] #### 21426-8 #### [facility] ([id number]) [address] [place] [address] Protein [Mass/Vol] 4.9 g/dL Low 6.0-8.0 [facility] Comment on above: Performed By: #### C BCA, HA1C, CMP, TSHR, 2-9, 2276-4, FEPR, 2284-8, 06234-1 #### [facility] ([id number]) [address] [facility], [address] [place] [address] #### 87095-3 #### [facility] ([id number]) [address] [place] [address] 66069 Sodium [Moles/Vol] 147 mmol/L High 134-146 [facility] Comment on above: Performed By: #### C BCA, HA1C, CMP, TSHR, 2131-9, 2276-4, FEPR, 2284-8, 40547-8 #### [facility] ([id number]) [address] [facility], [address] [place] [address] #### 68123-6 #### [facility] ([id number]) [address] [place] [address] 51505 Urea nitrogen [Mass/Vol] 29 mg/dL High 5-27 [facility] Comment on above: Performed By: #### C BCA, HA1C, CMP, TSHR, 2131-9, 2276-4, FEPR, 2284-8, 58555-1 #### [facility] ([id number]) [address], [address] [place] [address] #### 86887-9 #### [facility] ([id number]) [address] [place] [address]3925 FERRITINon 10-14-2024 Ferritin [Mass/Vol] 167 ng/mL Normal 11-307 [facility] Comment on above: Performed By: #### C BCA, HA1C, CMP, TSHR, 2-9, 2276-4, FEPR, 2284-8, 81846-3 #### [facility] ([id number]) [address], [address] [place] [address] #### 01479-1 #### [facility] ([id number]) [address] [place] [address] 13283 HEPATITIS PANEL, ACUTEon ANTI HCV W/PCR REFLX Non-Reactive Normal Non-Reactive [facility] Comment on above: Result Comment: If r ecent infection suspected, recommend repeat testing (>2 months). Nqxrbd-pb-lcyuru ratio is <1.0. Performed By: #### C BCA, HA1C, CMP, TSHR, 2131-9, 6-4, FEPR, 2284-8, 41432-1 #### [facility] ([id number]) [address], [address] [place] [address] #### 26080-9 #### [facility] ([id number]) [address] [place] [address] 81641 HEPATITIS A IGM Non-Reactive Normal Non-Reactive [facility] Comment on above: Performed By: #### C BCA, HA1C, CMP, TSHR, 2131-9, 6-4, FEPR, 2284-8, 55264-2 #### [facility] ([id number]) [address], [address] [place] [address] #### 36267-3 #### [facility] ([id number]) [address] [place] [address]857 HEPATITIS B CORE IGM Non-Reactive Normal Non-Reactive [facility] Comment on above: Performed By: #### C BCA, HA1C, CMP, TSHR, 2131-9, 6-4, FEPR, 2284-8, 78612-6 #### [facility] ([id number]) [address], [address] [place] [address] #### 23621-2 #### [facility] ([id number]) [address] [place] [address] 10926 HEPATITIS B SURF AG Non-Reactive Normal Non-Reactive [facility] Comment on above: Performed By: #### C BCA, HA1C, CMP, TSHR, 2131-10, 2275-4, FEPR, 2283-, 90176-0 #### [facility] ([id number]) [address], [address] [place] [address] #### 17679-2 #### [facility] ([id number]) [address] [place] [address]8048 IONIZED CALCIUMon 10-14-2024 IONIZED CALCIUM ICA IONIZED CALCIUM Cancelled Normal [facility] IRON AND TIBCon 10-14-2024 Iron [Mass/Vol] 282 ug/dL High 50-170 [facility] Comment on above: Performed By: #### C BCA, HA1C, CMP, TSHR, 2131-10, 2275-, FEPR, 2283-8, 40541-3 #### [facility] ([id number]) [address], [address] [place] [address] #### 34943-4 #### [facility] ([id number]) [address] [place] [address] 41990 IRON BINDING 245 ug/dL Low 250-425 [facility] Comment on above: Performed By: #### C BCA, HA1C, CMP, TSHR, 2131-10, 2275-4, FEPR, 4-8, 51954-8 #### [facility] ([id number]) [address], [address] [place] [address] #### 00412-2 #### [facility] ([id number]) [address] [place] [address] 13255 IRON SATURATION 115 % SATURATION High 15-50 [facility] Comment on above: Performed By: #### C BCA, HA1C, CMP, TSHR, 2-9, 2276-4, FEPR, 2284-8, 76368-9 #### [facility] ([id number]) [address], [address] [place] [address] #### 49173-0 #### [facility] ([id number]) [address] [place] [address] 79427 Transferrin [Mass/Vol] 175 mg/dL Normal 168-336 [facility] Comment on above: Performed By: #### C BCA, HA1C, CMP, TSHR, 2-9, 2276-4, FEPR, 2284-8, 86190-8 #### [facility] ([id number]) [address], [address] [place] [address] #### 74839-7 #### [facility] ([id number]) [address] [place] [address] 84370 LIPASEon 10-14-2024 Lipase [Catalytic activity/Vol] 120 U/L High 17-40 [facility] Comment on above: Performed By: #### C BCA, HA1C, CMP, TSHR, 2131-9, 6-4, FEPR, 2284-8, 49339-3 #### [facility] ([id number]) [address], [address] [place] [address] #### 71708-3 #### [facility] ([id number]) [address] [place] [address] 71562 MAGNESIUMon 10-14-2024 Magnesium [Mass/Vol] 2.4 mg/dL Normal 1.8-2.6 [facility] Comment on above: Performed By: #### C BCA, HA1C, CMP, TSHR, 2-9, 2276-4, FEPR, 2284-8, 60270-2 #### [facility] ([id number]) [address], [address] [place] [address] #### 76122-0 #### [facility] ([id number]) [address] [place] [address] 84140 PHOSPHORUSon 10-14-2024 Phosphate [Mass/Vol] 1.8 mg/dL Low 2.4-4.9 [facility] Comment on above: Performed By: #### C BCA, HA1C, CMP, TSHR, 2131-9, 2276-4, FEPR, 2284-8, 43167-5 #### [facility] ([id number]) [address] [facility], [address] [address] #### 66653-2 #### [facility] ([id number]) [address] [place] [address]79[address] POCT IONIZED CALCIUMon 10-14 PORTABLE ICA 4.2 mg/dL Low 4.5-5.3 [facility] Comment on above: Performed By: #### C BCA, HA1C, CMP, TSHR, 2131-9, 6-4, FEPR, 2284-8, 86154-4 #### [facility] ([id number]) [address] [place] [address], [address] [address] #### 29185-6 #### [facility] ([id number]) [address] [place] [address] 28728 CBC WITH AUTO DIFFERENTIALon 10-13-2024 BASOPHILS ABSOLUTE COUNT (10*3/UL) BY AUTOMATED COUNT 0.0 10*3/uL Normal 0.0-0.2 [facility] Comment on above: Performed By: #### C BCA, HA1C, CMP, TSHR, 2131-9, 2276-4, FEPR, 2284-8, 60813-3 #### [facility] ([id number]) [address], [address] [place] [address] #### 85194-1 #### [facility] ([id number]) [address] [place] [address] 02778 BASOPHILS RELATIVE PERCENT BY AUTOMATED COUNT 0.2 % Normal [facility] Comment on above: Performed By: #### C BCA, HA1C, CMP, TSHR, 2131-9, 6-4, FEPR, 2284-8, 29591-4 #### [facility] ([id number]) [address], [address] [place] [address] #### 31295-9 #### [facility] ([id number]) [address] [place] [address] 97124 CELLAVISION DIFFERENTIAL TYPE AUTOMATED DIFFERENTIAL Normal [facility] Comment on above: Performed By: #### C BCA, HA1C, CMP, TSHR, 2131-, 6-4, FEPR, 2284-8, 88938-2 #### [facility] ([id number]) [address], [address] [place] [address] #### 72722-2 #### [facility] ([id number]) [address] [place] [address] Eosinophils (Bld) [#/Vol] 0.0 10*3/uL Normal 0.0-0.4 [facility] Comment on above: Performed By: #### C BCA, HA1C, CMP, TSHR, 2131-9, 6-4, FEPR, 2284-8, 55300-8 #### [facility] ([id number]) [address], [address] [place] [address] #### 85970-5 #### [facility] ([id number]) [address] [place] [address] 66980 EOSINOPHILS RELATIVE PERCENT BY AUTOMATED COUNT 0.0 % Normal [facility] Comment on above: Performed By: #### C BCA, HA1C, CMP, TSHR, 2131-9, 6-4, FEPR, 2284-8, 24984-5 #### [facility] ([id number]) [address], [address] [place] [address] #### 60172-2 #### [facility] ([id number]) [address] [place] [address]261 Erythrocyte distribution width (RBC) [Ratio] 16.3 % High 11.5-15 [facility] Comment on above: Performed By: #### C BCA, HA1C, CMP, TSHR, 2131-10, 6-4, FEPR, 2283-8, 33810-6 #### [facility] ([id number]) [address], [address] [place] [address] #### 67834-0 #### [facility] ([id number]) [address] [place] [address]306 Hematocrit (Bld) [Volume fraction] 31.6 % Low 35-47 [facility] Comment on above: Performed By: #### C BCA, HA1C, CMP, TSHR, 2131-10, 6-4, FEPR, 2283-8, 38605-8 #### [facility] ([id number]) [address], [address] [place] [address] #### 34768-6 #### [facility] ([id number]) [address] [place] [address] Hemoglobin (Bld) [Mass/Vol] 10.6 g/dL Low 11.7-15.5 [facility] Comment on above: Performed By: #### C BCA, HA1C, CMP, TSHR, 2131-10, 6-4, FEPR, 2284-8, 47787-7 #### [facility] ([id number]) [address], [address] [place] [address] #### 39959-8 #### [facility] ([id number]) [address] [place] [address] 21061 LYMPHOCYTES ABSOLUTE COUNT (10*3/UL) BY AUTOMATED COUNT 1.2 10*3/uL Normal 1.0-3.5 [facility] Comment on above: Performed By: #### C BCA, HA1C, CMP, TSHR, 2-9, 2276-4, FEPR, 4-8, 67294-6 #### [facility] ([id number]) [address], [address] [place] [address] #### 65459-0 #### [facility] ([id number]) [address] [place] [address] 55657 LYMPHOCYTES RELATIVE PERCENT BY AUTOMATED COUNT 7.4 % Normal [facility] Comment on above: Performed By: #### C BCA, HA1C, CMP, TSHR, 2131-9, 6-4, FEPR, 2283-, 99868-8 #### [facility] ([id number]) [address], [address] [place] [address] #### 85374-4 #### [facility] ([id number]) [address] [place] [address] 64684 MCH (RBC) [Entitic mass] 29.5 pg Normal 27-34 [facility] Comment on above: Performed By: #### C BCA, HA1C, CMP, TSHR, 2131-9, 6-4, FEPR, 4-8, 20200-3 #### [facility] ([id number]) [address], [address] [place] [address] #### 31409-4 #### [facility] ([id number]) [address] [place] [address] 57440 MCHC (RBC) [Mass/Vol] 33.6 g/dL Normal 32-36 [facility] Comment on above: Performed By: #### C BCA, HA1C, CMP, TSHR, 2131-10, 2275-4, FEPR, 4-8, 85232-5 #### [facility] ([id number]) [address], [address] [place] [address] #### 12685-0 #### [facility] ([id number]) [address] [place] [address] 27098 MCV (RBC) [Entitic vol] 88 fL Normal 80-100 [facility] Comment on above: Performed By: #### C BCA, HA1C, CMP, TSHR, 2131-10, 2275-, FEPR, 2283-8, 56777-7 #### [facility] ([id number]) [address], [address] [place] [address] #### 07887-8 #### [facility] ([id number]) [address] [place] [address] 717[address] MONOCYTES ABSOLUTE COUNT (10*3/UL) BY AUTOMATED COUNT 1.0 10*3/uL High 0.0-0.9 [facility] Comment on above: Performed By: #### C BCA, HA1C, CMP, TSHR, 2131-10, 2275-, FEPR, 2283-8, 19871-3 #### [facility] ([id number]) [address], [address] [place] [address] #### 01712-5 #### [facility] ([id number]) [address] [place] [address] 68775 MONOCYTES RELATIVE PERCENT BY AUTOMATED COUNT 6.2 % Normal [facility] Comment on above: Performed By: #### C BCA, HA1C, CMP, TSHR, 2132-9, 2276-4, FEPR, 2284-8, 10012-7 #### [facility] ([id number]) [address], [address] [place] [address] #### 11186-5 #### [facility] ([id number]) [address] [place] [address] 37356 NEUTROPHILS ABSOLUTE COUNT BY AUTOMATED COUNT 13.4 10*3/uL High 1.5-6.6 [facility] Comment on above: Performed By: #### C BCA, HA1C, CMP, TSHR, 2131-9, 2276-4, FEPR, 2284-8, 01566-2 #### [facility] ([id number]) [address], [address] [place] [address] #### 60298-2 #### [facility] ([id number]) [address] [place] [address] 30509 NEUTROPHILS RELATIVE PERCENT BY AUTOMATED COUNT 86.2 % Normal [facility] Comment on above: Performed By: #### C BCA, HA1C, CMP, TSHR, 2131-9, 6-4, FEPR, 2284-8, 89637-0 #### [facility] ([id number]) [address], [address] [place] [address] #### 38623-5 #### [facility] ([id number]) [address] [place] [address] 77335 Platelet mean volume (Bld) [Entitic vol] 8.0 fL Normal 7-12 [facility] Comment on above: Performed By: #### C BCA, HA1C, CMP, TSHR, 2131-9, 6-4, FEPR, 2284-8, 98702-4 #### [facility] ([id number]) [address], [address] [place] [address] #### 01653-6 #### [facility] ([id number]) [address] [place] [address]303 Platelets (Bld) [#/Vol] 195 10*3/uL Normal 150-450 [facility] Comment on above: Performed By: #### C BCA, HA1C, CMP, TSHR, 2132-9, 2276-4, FEPR, 2284-8, 64449-4 #### [facility] ([id number]) [address] [place] [address], [address] [address] #### 87896-1 #### [facility] ([id number]) [address] [place] [address] 62814 RBC COUNT 3.60 X10E12/L Low 3.8-5.2 [facility] Comment on above: Performed By: #### C BCA, HA1C, CMP, TSHR, 2-9, 2276-4, FEPR, 2284-8, 73335-0 #### [facility] ([id number]) [address] [place] [address], [address] [address] #### 55277-8 #### [facility] ([id number]) [address] [place] [address] 63452 WBC (Bld) [#/Vol] 15.6 10*3/uL High 4-11 [facility] Comment on above: Performed By: #### C BCA, HA1C, CMP, TSHR, 2132-9, 2276-4, FEPR, 2284-8, 52629-2 #### [facility] ([id number]) [address] [place] [address], [address] [place] [address] #### 68666-7 #### [facility] ([id number]) [address] [place] [address]2580 COMPREHENSIVE METABOLIC PANE Brock 10-13-2024 Albumin [Mass/Vol] 2.6 g/dL Low 3.2-5.3 [facility] Comment on above: Performed By: #### C BCA, HA1C, CMP, TSHR, 2132-9, 2276-4, FEPR, 2284-8, 24873-9 #### [facility] ([id number]) [address], [address] [place] [address] #### 20054-0 #### [facility] ([id number]) [address] [place] [address] ALP [Catalytic activity/Vol] 233 U/L High 39-130 [facility] Comment on above: Performed By: #### C BCA, HA1C, CMP, TSHR, 2-9, 2276-4, FEPR, 2284-8, 05614-7 #### [facility] ([id number]) [address], [address] [place] [address] #### 56284-2 #### [facility] ([id number]) [address] [place] [address] 88132 ALT [Catalytic activity/Vol] 2000 U/L High <=31 [facility] Comment on above: Performed By: #### C BCA, HA1C, CMP, TSHR, 2131-9, 2276-4, FEPR, 2284-8, 71583-4 #### [facility] ([id number]) [address], [address] [place] [address] #### 53806-6 #### [facility] ([id number]) [address] [place] [address] 35766 Anion gap [Moles/Vol] 6 mmol/L Normal 5-15 [facility] Comment on above: Performed By: #### C BCA, HA1C, CMP, TSHR, 2-9, 2276-4, FEPR, 2284-8, 59999-0 #### [facility] ([id number]) [address], [address] [place] [address] #### 57529-7 #### [facility] ([id number]) [address] [place] [address] AST [Catalytic activity/Vol] 570 U/L High <=41 [facility] Comment on above: Performed By: #### C BCA, HA1C, CMP, TSHR, 2131-9, 6-4, FEPR, 2284-8, 86152-3 #### [facility] ([id number]) [address], [address] [place] [address] #### 26895-4 #### [facility] ([id number]) [address] [place] [address] 04196 Bilirubin [Mass/Vol] 2.6 mg/dL High 0.3-1.2 [facility] Comment on above: Performed By: #### C BCA, HA1C, CMP, TSHR, 2131-10, 6-4, FEPR, 2284-8, 72649-4 #### [facility] ([id number]) [address] [facility], [address] [place] [address] #### 11149-7 #### [facility] ([id number]) [address] [place] [address] 23515 Calcium [Mass/Vol] 6.2 mg/dL Critically low 8.5-10.5 [facility] Comment on above: Performed By: #### C BCA, HA1C, CMP, TSHR, 2131-10, 6-4, FEPR, 2284-8, 39089-7 #### [facility] ([id number]) [address], [address] [place] [address] #### 94064-2 #### [facility] ([id number]) [address] [place] [address] 79401 Chloride [Moles/Vol] 118 mmol/L High 98-109 [facility] Comment on above: Performed By: #### C BCA, HA1C, CMP, TSHR, 2131-9, 6-4, FEPR, 2284-8, 10981-7 #### [facility] ([id number]) [address], [address] [place] [address] #### 76270-6 #### [facility] ([id number]) [address] [place] [address] 07547 CO2 [Moles/Vol] 18 mmol/L Low 22-32 [facility] Comment on above: Performed By: #### C BCA, HA1C, CMP, TSHR, 2131-, 6-4, FEPR, 4-8, 01007-2 #### [facility] ([id number]) [address], [address] [place] [address] #### 34375-4 #### [facility] ([id number]) [address] [place] [address] 06534 Creatinine [Mass/Vol] 1.26 mg/dL High 0.40-1.00 [facility] Comment on above: Result Comment: METH OD TRACEABLE TO IDMS STANDARD Performed By: #### C BCA, HA1C, CMP, TSHR, 2131-9, 6-4, FEPR, 2284-8, 31665-8 #### [facility] ([id number]) [address], [address] [place] [address] #### 24450-7 #### [facility] ([id number]) [address] [place] [address] 08329 GFR/1.73 sq M.predicted among non-blacks MDRD (S/P/Bld) [Vol rate/Area] 48 mL/min/{1.73_m2} Low >=60 [facility] Comment on above: Result Comment: Repo rted eGFR is based on the CKD-EPI 2020 equation that does not use a race coefficient. Performed By: #### C BCA, HA1C, CMP, TSHR, 2-9, 2276-4, FEPR, 2284-8, 78898-6 #### [facility] ([id number]) [address], [address] [place] [address] #### 93711-7 #### [facility] ([id number]) [address] [place] [address] Glucose [Mass/Vol] 108 mg/dL High 65-99 [facility] Comment on above: Performed By: #### C BCA, HA1C, CMP, TSHR, 2131-9, 2276-4, FEPR, 2284-8, 15539-6 #### [facility] ([id number]) [address], [address] [place] [address] #### 59375-8 #### [facility] ([id number]) [address] [place] [address] 69064 Potassium [Moles/Vol] 3.8 mmol/L Normal 3.5-5.0 [facility] Comment on above: Performed By: #### C BCA, HA1C, CMP, TSHR, 2131-9, 2276-4, FEPR, 2284-8, 50467-4 #### [facility] ([id number]) [address], [address] [place] [address] #### 31670-6 #### [facility] ([id number]) [address] [place] [address] 60834 Protein [Mass/Vol] 5.6 g/dL Low 6.0-8.0 [facility] Comment on above: Performed By: #### C BCA, HA1C, CMP, TSHR, 2-9, 2276-4, FEPR, 2284-8, 50493-8 #### [facility] ([id number]) [address], [address] [place] [address] #### 92674-2 #### [facility] ([id number]) [address] [place] [address] 01208 Sodium [Moles/Vol] 142 mmol/L Normal 134-146 [facility] Comment on above: Performed By: #### C BCA, HA1C, CMP, TSHR, 2131-9, 2276-4, FEPR, 2284-8, 00160-0 #### [facility] ([id number]) [address] [facility], [address] [place] [address] #### 39128-3 #### [facility] ([id number]) [address] [place] [address] 14662 Urea nitrogen [Mass/Vol] 41 mg/dL High 5-27 [facility] Comment on above: Performed By: #### C BCA, HA1C, CMP, TSHR, 9, 6-4, FEPR, 2284-8, 87354-0 #### [facility] ([id number]) [address] [facility], [address] [place] [address] #### 56866-6 #### [facility] ([id number]) [address] [place] [address] 04556 IONIZED CALCIUMon 10-13-2024 IONIZED CALCIUM ICA IONIZED CALCIUM Cancelled Normal [facility] IONIZED CALCIUM - ICAN 3.7 mg/dL Low 4.5-5.3 [facility] Comment on above: Performed By: #### C BCA, HA1C, CMP, TSHR, 9, 6-4, FEPR, 2284-8, 05208-3 #### [facility] ([id number]) [address] [facility], [address] [place] [address] #### 67941-4 #### [facility] ([id number]) [address] [place] [address] 61443 LIPASEon 10-13-2024 Lipase [Catalytic activity/Vol] 508 U/L High 17-40 [facility] Comment on above: Performed By: #### C BCA, HA1C, CMP, TSHR, 2131-9, 6-4, FEPR, 2284-8, 73910-5 #### [facility] ([id number]) [address] [facility], [address] [place] [address] #### 00675-6 #### [facility] ([id number]) [address] [place] [address] 24336 MAGNESIUMon 10-13-2024 Magnesium [Mass/Vol] 2.3 mg/dL Normal 1.8-2.6 [facility] Comment on above: Performed By: #### C BCA, HA1C, CMP, TSHR, 2131-10, 6-4, FEPR, 2284-8, 55512-5 #### [facility] ([id number]) [address] [facility], [address] [place] [address] #### 30358-3 #### [facility] ([id number]) [address] [place] [address] 80945 POCT IONIZED CALCIUMon 10-13 PORTABLE ICA 3.9 mg/dL Low 4.5-5.3 [facility] Comment on above: Performed By: #### C BCA, HA1C, CMP, TSHR, 2131-10, 6-4, FEPR, 2284-8, 40324-5 #### [facility] ([id number]) [address] [facility], [address] [place] [address] #### 59191-3 #### [facility] ([id number]) [address] [place] [address] 56094 CBC WITH AUTO DIFFERENTIALon 10-12-2024 BASOPHILS ABSOLUTE COUNT (10*3/UL) BY AUTOMATED COUNT 0.1 10*3/uL Normal 0.0-0.2 [facility] Comment on above: Performed By: #### C BCA, HA1C, CMP, TSHR, 2131-9, 6-4, FEPR, 2284-8, 39124-9 #### [facility] ([id number]) [address], [address] [place] [address] #### 64350-6 #### [facility] ([id number]) [address] [place] [address] 59778 BASOPHILS RELATIVE PERCENT BY AUTOMATED COUNT 0.5 % Normal [facility] Comment on above: Performed By: #### C BCA, HA1C, CMP, TSHR, 2131-, 6-4, FEPR, 4-8, 08805-2 #### [facility] ([id number]) [address], [address] [place] [address] #### 71404-5 #### [facility] ([id number]) [address] [place] [address] 37746 CELLAVISION DIFFERENTIAL TYPE AUTOMATED DIFFERENTIAL Normal [facility] Comment on above: Performed By: #### C BCA, HA1C, CMP, TSHR, 2131-10, 6-4, FEPR, 4-8, 76443-3 #### [facility] ([id number]) [address], [address] [place] [address] #### 03334-4 #### [facility] ([id number]) [address] [place] [address] 25275 Eosinophils (Bld) [#/Vol] 0.0 10*3/uL Normal 0.0-0.4 [facility] Comment on above: Performed By: #### C BCA, HA1C, CMP, TSHR, 2131-, 6-4, FEPR, 2284-8, 85226-3 #### [facility] ([id number]) [address], [address] [place] [address] #### 52537-3 #### [facility] ([id number]) [address] [place] [address] 15301 EOSINOPHILS RELATIVE PERCENT BY AUTOMATED COUNT 0.1 % Normal [facility] Comment on above: Performed By: #### C BCA, HA1C, CMP, TSHR, 2-9, 2276-4, FEPR, 2284-8, 88832-5 #### [facility] ([id number]) [address] [facility] [address] [place] [address] #### 50108-2 #### [facility] ([id number]) [address] [place] [address] 39801 Erythrocyte distribution width (RBC) [Ratio] 15.9 % High 11.5-15 [facility] Comment on above: Performed By: #### C BCA, HA1C, CMP, TSHR, 2131-9, 6-4, FEPR, 2284-8, 64539-4 #### [facility] ([id number]) [address] [address] #### 47850-5 #### [facility] ([id number]) [address] [place] [address] 52819 Hematocrit (Bld) [Volume fraction] 35.0 % Normal 35-47 [facility] Comment on above: Performed By: #### C BCA, HA1C, CMP, TSHR, 2131-9, 6-4, FEPR, 2284-8, 91972-9 #### [facility] ([id number]) [address] [place] [address] [address] [place] [address] #### 89973-3 #### [facility] ([id number]) [address] [place] [address] 32926 Hemoglobin (Bld) [Mass/Vol] 11.8 g/dL Normal 11.7-15.5 [facility] Comment on above: Performed By: #### C BCA, HA1C, CMP, TSHR, 2-9, 2276-4, FEPR, 2284-8, 92111-8 #### [facility] ([id number]) [address], [address] [place] [address] #### 00179-6 #### [facility] ([id number]) [address] [place] [address] 37068 LYMPHOCYTES ABSOLUTE COUNT (10*3/UL) BY AUTOMATED COUNT 1.2 10*3/uL Normal 1.0-3.5 [facility] Comment on above: Performed By: #### C BCA, HA1C, CMP, TSHR, 2131-9, 6-4, FEPR, 2284-8, 45162-9 #### [facility] ([id number]) [address], [address] [place] [address] #### 72418-5 #### [facility] ([id number]) [address] [place] [address] 77805 LYMPHOCYTES RELATIVE PERCENT BY AUTOMATED COUNT 9.0 % Normal [facility] Comment on above: Performed By: #### C BCA, HA1C, CMP, TSHR, 2131-, 6-4, FEPR, 2284-8, 67171-7 #### [facility] ([id number]) [address], [address] [place] [address] #### 42121-4 #### [facility] ([id number]) [address] [place] [address] 90326 MCH (RBC) [Entitic mass] 29.0 pg Normal 27-34 [facility] Comment on above: Performed By: #### C BCA, HA1C, CMP, TSHR, 2-9, 6-4, FEPR, 2284-8, 77576-0 #### [facility] ([id number]) [address], [address] [place] [address] #### 89806-0 #### [facility] ([id number]) [address] [place] [address] 71294 MCHC (RBC) [Mass/Vol] 33.7 g/dL Normal 32-36 [facility] Comment on above: Performed By: #### C BCA, HA1C, CMP, TSHR, 2131-9, 6-4, FEPR, 2284-8, 32601-1 #### [facility] ([id number]) [address], [address] [place] [address] #### 86392-6 #### [facility] ([id number]) [address] [place] [address] 62655 MCV (RBC) [Entitic vol] 86 fL Normal 80-100 [facility] Comment on above: Performed By: #### C BCA, HA1C, CMP, TSHR, 2131-, 6-4, FEPR, 4-8, 14703-0 #### [facility] ([id number]) [address], [address] [place] [address] #### 02659-9 #### [facility] ([id number]) [address] [place] [address] 59682 MONOCYTES ABSOLUTE COUNT (10*3/UL) BY AUTOMATED COUNT 0.9 10*3/uL Normal 0.0-0.9 [facility] Comment on above: Performed By: #### C BCA, HA1C, CMP, TSHR, 2131-9, 6-4, FEPR, 2284-8, 48708-6 #### [facility] ([id number]) [address], [address] [place] [address] #### 27680-1 #### [facility] ([id number]) [address] [place] [address] 54584 MONOCYTES RELATIVE PERCENT BY AUTOMATED COUNT 6.6 % Normal [facility] Comment on above: Performed By: #### C BCA, HA1C, CMP, TSHR, 2132-9, 2276-4, FEPR, 2284-8, 99497-9 #### [facility] ([id number]) [address], [address] [place] [address] #### 57511-5 #### [facility] ([id number]) [address] [place] [address] 33691 NEUTROPHILS ABSOLUTE COUNT BY AUTOMATED COUNT 11.4 10*3/uL High 1.5-6.6 [facility] Comment on above: Performed By: #### C BCA, HA1C, CMP, TSHR, 2-9, 2276-4, FEPR, 2284-8, 82900-7 #### [facility] ([id number]) [address], [address] [place] [address] #### 88640-4 #### [facility] ([id number]) [address] [place] [address] 89141 NEUTROPHILS RELATIVE PERCENT BY AUTOMATED COUNT 83.8 % Normal [facility] Comment on above: Performed By: #### C BCA, HA1C, CMP, TSHR, 2-9, 2276-4, FEPR, 2284-8, 40929-6 #### [facility] ([id number]) [address], [address] [place] [address] #### 04910-9 #### [facility] ([id number]) [address] [place] [address] 15093 Platelet mean volume (Bld) [Entitic vol] 7.9 fL Normal 7-12 [facility] Comment on above: Performed By: #### C BCA, HA1C, CMP, TSHR, 2132-9, 2276-4, FEPR, 2284-8, 37782-4 #### [facility] ([id number]) [address], [address] [place] [address] #### 71607-4 #### [facility] ([id number]) [address] [place] [address] 82983 Platelets (Bld) [#/Vol] 248 10*3/uL Normal 150-450 [facility] Comment on above: Performed By: #### C BCA, HA1C, CMP, TSHR, 2132-9, 2276-4, FEPR, 2284-8, 18363-0 #### [facility] ([id number]) [address], [address] [place] [address] #### 80656-1 #### [facility] ([id number]) [address] [place] [address] 74347 RBC COUNT 4.06 X10E12/L Normal 3.8-5.2 [facility] Comment on above: Performed By: #### C BCA, HA1C, CMP, TSHR, 2-9, 2276-4, FEPR, 2284-8, 97678-3 #### [facility] ([id number]) [address], [address] [place] [address] #### 02353-9 #### [facility] ([id number]) [address] [place] [address] 27074 WBC (Bld) [#/Vol] 13.6 10*3/uL High 4-11 [facility] Comment on above: Performed By: #### C BCA, HA1C, CMP, TSHR, 2132-9, 2276-4, FEPR, 2284-8, 68577-9 #### [facility] LAB ([id number]) [address], [address] [place] [address] #### 38940-8 #### [facility] ([id number]) [address] [place] [address] 97397 COMPREHENSIVE METABOLIC PANE Brock 10-12-2024 Albumin [Mass/Vol] 3.1 g/dL Low 3.2-5.3 [facility] Comment on above: Performed By: #### C BCA, HA1C, CMP, TSHR, 2-9, 2276-4, FEPR, 2284-8, 00987-8 #### [facility] ([id number]) [address], [address] [place] [address] #### 62431-2 #### [facility] ([id number]) [address] [place] [address] 97649 ALP [Catalytic activity/Vol] 310 U/L High 39-130 [facility] Comment on above: Performed By: #### C BCA, HA1C, CMP, TSHR, 2131-9, 6-4, FEPR, 2284-8, 37302-9 #### [facility] ([id number]) [address], [address] [place] [address] #### 43454-1 #### [facility] ([id number]) [address] [place] [address] 84463 ALT [Catalytic activity/Vol] 3649 U/L High <=31 [facility] Comment on above: Performed By: #### C BCA, HA1C, CMP, TSHR, 2131-9, 6-4, FEPR, 2284-8, 51464-6 #### [facility] ([id number]) [address], [address] [place] [address] #### 86103-3 #### [facility] ([id number]) [address] [place] [address] 59961 Anion gap [Moles/Vol] 10 mmol/L Normal 5-15 [facility] Comment on above: Performed By: #### C BCA, HA1C, CMP, TSHR, 2132-9, 2276-4, FEPR, 2284-8, 45999-4 #### [facility] ([id number]) [address], [address] [place] [address] #### 70180-1 #### [facility] ([id number]) [address] [place] [address] AST [Catalytic activity/Vol] 1845 U/L High <=41 [facility] Comment on above: Performed By: #### C BCA, HA1C, CMP, TSHR, 2131-9, 6-4, FEPR, 2284-8, 73407-0 #### [facility] ([id number]) [address], [address] [place] [address] #### 42252-0 #### [facility] ([id number]) [address] [place] [address] 57751 Bilirubin [Mass/Vol] 3.7 mg/dL High 0.3-1.2 [facility] Comment on above: Performed By: #### C BCA, HA1C, CMP, TSHR, 2131-, 6-4, FEPR, 2284-8, 99471-9 #### [facility] ([id number]) [address], [address] [place] [address] #### 59538-5 #### [facility] ([id number]) [address] [place] [address] 83256 Calcium [Mass/Vol] 7.7 mg/dL Low 8.5-10.5 [facility] Comment on above: Performed By: #### C BCA, HA1C, CMP, TSHR, 2131-9, 6-4, FEPR, 2284-8, 08096-2 #### [facility] ([id number]) [address], [address] [place] [address] #### 17622-4 #### [facility] ([id number]) [address] [place] [address] 81959 Chloride [Moles/Vol] 110 mmol/L High 98-109 [facility] Comment on above: Performed By: #### C BCA, HA1C, CMP, TSHR, 2-9, 2276-4, FEPR, 2284-8, 89698-4 #### [facility] ([id number]) [address], [address] [place] [address] #### 06466-1 #### [facility] ([id number]) [address] [place] [address] 01387 CO2 [Moles/Vol] 19 mmol/L Low 22-32 [facility] Comment on above: Performed By: #### C BCA, HA1C, CMP, TSHR, 2131-9, 6-4, FEPR, 2284-8, 39841-7 #### [facility] ([id number]) [address], [address] [place] [address] #### 23558-3 #### [facility] ([id number]) [address] [place] [address] 00191 Creatinine [Mass/Vol] 0.85 mg/dL Normal 0.40-1.00 [facility] Comment on above: Result Comment: METH OD TRACEABLE TO IDMS STANDARD Performed By: #### C BCA, HA1C, CMP, TSHR, 2131-9, 6-4, FEPR, 2284-8, 15432-5 #### [facility] ([id number]) [address], [address] [place] [address] #### 44798-8 #### [facility] ([id number]) [address] [place] [address] 29843 GFR/1.73 sq M.predicted among non-blacks MDRD (S/P/Bld) [Vol rate/Area] 77 mL/min/{1.73_m2} Normal >=60 [facility] Comment on above: Result Comment: eGFR not reported due to non-numeric value for Creatinine. Reported eGFR is based on the CKD-EPI 2020 equation that does not use a race coefficient. Performed By: #### C BCA, HA1C, CMP, TSHR, 2-9, 2276-4, FEPR, 2284-8, 08788-7 #### [facility] ([id number]) [address] [facility], [address] [address] #### 41513-6 #### [facility] ([id number]) [address] [place] [address] 74002 Glucose [Mass/Vol] 104 mg/dL High 65-99 [facility] Comment on above: Performed By: #### C BCA, HA1C, CMP, TSHR, 2131-9, 6-4, FEPR, 2284-8, 04282-8 #### [facility] ([id number]) [address] [facility], [facility] [address] [place] [address] #### 34215-5 #### [facility] ([id number]) [address] [place] [address] 35703 Potassium [Moles/Vol] 4.0 mmol/L Normal 3.5-5.0 [facility] Comment on above: Performed By: #### C BCA, HA1C, CMP, TSHR, 2131-9, 2276-4, FEPR, 2284-8, 35575-7 #### [facility] ([id number]) [address] [facility] [address] [place] [address] #### 90723-5 #### [facility] ([id number]) [address] [place] [address] 63563 Protein [Mass/Vol] 6.3 g/dL Normal 6.0-8.0 [facility] Comment on above: Performed By: #### C BCA, HA1C, CMP, TSHR, 2131-9, 6-4, FEPR, 2284-8, 80885-4 #### [facility] ([id number]) [address], [address] [place] [address] #### 58483-3 #### [facility] ([id number]) [address] [place] [address] 07550 Sodium [Moles/Vol] 139 mmol/L Normal 134-146 [facility] Comment on above: Performed By: #### C BCA, HA1C, CMP, TSHR, 2131-, 6-4, FEPR, 4-8, 63463-5 #### [facility] ([id number]) [address], [address] [place] [address] #### 27725-2 #### [facility] ([id number]) [address] [place] [address] 43920 Urea nitrogen [Mass/Vol] 30 mg/dL High 5-27 [facility] Comment on above: Performed By: #### C BCA, HA1C, CMP, TSHR, 2131-10, 6-4, FEPR, 2283-, 74332-6 #### [facility] ([id number]) [address], [address] [place] [address] #### 84274-9 #### [facility] ([id number]) [address] [place] [address] 21791 LACTATE W/ REFLEXon 08-30-20 25 LACTATE W/REFLEX 1.0 mmol/L Normal 0.4-2.0 [facility] Comment on above: Order Comment: Resul t did not trigger repeat Lactate,re-order if needed. Performed By: #### C BCA, HA1C, CMP, TSHR, 2131-9, 6-4, FEPR, 2284-8, 53684-0 #### [facility] ([id number]) [address], [address] [place] [address] #### 54691-8 #### [facility] ([id number]) [address] [place] [address] 09108 LACTATE W/REFLEX 1.1 mmol/L Normal 0.4-2.0 [facility] Comment on above: Order Comment: Resul t did not trigger repeat Lactate,re-order if needed. Performed By: #### C BCA, HA1C, CMP, TSHR, 2132-9, 2276-4, FEPR, 2284-8, 93379-3 #### [facility] ([id number]) [address] [facility], [address] [place] [address] #### 04163-2 #### [facility] ([id number]) [address] [place] [address] 28954 MAGNESIUMon 10-12-2024 Magnesium [Mass/Vol] 2.2 mg/dL Normal 1.8-2.6 [facility] Comment on above: Performed By: #### C BCA, HA1C, CMP, TSHR, 2-9, 2276-4, FEPR, 2284-8, 24571-8 #### [facility] ([id number]) [address], [address] [place] [address] #### 39763-4 #### [facility] ([id number]) [address] [place] [address] 89669 TROP I, HIGH SENSITIVITY 3 H OURon 10-12-2024 TROPONIN I, HIGH SENSITIVITY 67 ng/L High <16 [facility] Comment on above: Order Comment: Ridge tions of hs-Troponin may be due to causesother than myocardial ischemia.Recommend serial hs-Troponin testing be performed.For the initial evaluation and management of chestpain patients, refer to the algorithms linked below.Emergency Patient:[email or web address] Performed By: #### C BCA, HA1C, CMP, TSHR, 2131-9, 2276-4, FEPR, 2284-8, 94226-0 #### [facility] ([id number]) [address], [address] [place] [address] #### 19885-0 #### [facility] ([id number]) [address] [place] [address] 50121 CBC WITH AUTO DIFFERENTIALon 10-11-2024 BASOPHILS ABSOLUTE COUNT (10*3/UL) BY AUTOMATED COUNT 0.1 10*3/uL Normal 0.0-0.2 [facility] Comment on above: Performed By: #### C BCA, HA1C, CMP, TSHR, 2131-10, 6-4, FEPR, 2284-8, 52945-6 #### [facility] ([id number]) [address], [address] [place] [address] #### 48491-8 #### [facility] ([id number]) [address] [place] [address] 05319 BASOPHILS RELATIVE PERCENT BY AUTOMATED COUNT 0.7 % Normal [facility] Comment on above: Performed By: #### C BCA, HA1C, CMP, TSHR, 9, 6-4, FEPR, 2284-8, 80745-5 #### [facility] ([id number]) [address], [address] [place] [address] #### 87422-8 #### [facility] ([id number]) [address] [place] [address] 51331 CELLAVISION DIFFERENTIAL TYPE AUTOMATED DIFFERENTIAL Normal [facility] Comment on above: Performed By: #### C BCA, HA1C, CMP, TSHR, 2131-9, 6-4, FEPR, 2284-8, 97861-3 #### [facility] ([id number]) [address], [address] [place] [address] #### 85622-4 #### [facility] ([id number]) [address] [place] [address] 63063 Eosinophils (Bld) [#/Vol] 0.0 10*3/uL Normal 0.0-0.4 [facility] Comment on above: Performed By: #### C BCA, HA1C, CMP, TSHR, 2131-9, 6-4, FEPR, 2284-8, 87288-5 #### [facility] ([id number]) [address], [address] [place] [address] #### 68218-8 #### [facility] ([id number]) [address] [place] [address] 21646 EOSINOPHILS RELATIVE PERCENT BY AUTOMATED COUNT 0.1 % Normal [facility] Comment on above: Performed By: #### C BCA, HA1C, CMP, TSHR, 2131-, 6-4, FEPR, 2284-8, 39768-1 #### [facility] ([id number]) [address], [address] [place] [address] #### 03192-6 #### [facility] ([id number]) [address] [place] [address] 59459 Erythrocyte distribution width (RBC) [Ratio] 15.9 % High 11.5-15 [facility] Comment on above: Performed By: #### C BCA, HA1C, CMP, TSHR, 2131-, 6-4, FEPR, 2284-8, 37127-4 #### [facility] ([id number]) [address], [address] [place] [address] #### 66125-6 #### [facility] ([id number]) [address] [place] [address] 79084 Hematocrit (Bld) [Volume fraction] 36.4 % Normal 35-47 [facility] Comment on above: Performed By: #### C BCA, HA1C, CMP, TSHR, 2132-9, 2276-4, FEPR, 2284-8, 57160-8 #### [facility] ([id number]) [address], [address] [place] [address] #### 72948-7 #### [facility] ([id number]) [address] [place] [address] 11425 Hemoglobin (Bld) [Mass/Vol] 12.2 g/dL Normal 11.7-15.5 [facility] Comment on above: Performed By: #### C BCA, HA1C, CMP, TSHR, 2-9, 2276-4, FEPR, 2284-8, 98944-7 #### [facility] ([id number]) [address], [address] [place] [address] #### 60122-3 #### [facility] ([id number]) [address] [place] [address] 93673 LYMPHOCYTES ABSOLUTE COUNT (10*3/UL) BY AUTOMATED COUNT 1.3 10*3/uL Normal 1.0-3.5 [facility] Comment on above: Performed By: #### C BCA, HA1C, CMP, TSHR, 2132-9, 2276-4, FEPR, 2284-8, 01809-8 #### [facility] ([id number]) [address], [address] [place] [address] #### 31869-4 #### [facility] ([id number]) [address] [place] [address] 34692 LYMPHOCYTES RELATIVE PERCENT BY AUTOMATED COUNT 15.0 % Normal [facility] Comment on above: Performed By: #### C BCA, HA1C, CMP, TSHR, 2-9, 2276-4, FEPR, 2284-8, 92467-3 #### [facility] ([id number]) [address], [address] [place] [address] #### 06295-6 #### [facility] ([id number]) [address] [place] [address] 79334 MCH (RBC) [Entitic mass] 29.0 pg Normal 27-34 [facility] Comment on above: Performed By: #### C BCA, HA1C, CMP, TSHR, 2131-9, 2276-4, FEPR, 4-8, 35701-7 #### [facility] ([id number]) [address] [facility] [address], [address] [place] [address] #### 93368-8 #### [facility] ([id number]) [address] [place] [address] 90959 MCHC (RBC) [Mass/Vol] 33.5 g/dL Normal 32-36 [facility] Comment on above: Performed By: #### C BCA, HA1C, CMP, TSHR, 2-9, 2276-4, FEPR, 2284-8, 89729-6 #### [facility] ([id number]) [address], [address] [place] [address] #### 61371-3 #### [facility] ([id number]) [address] [place] [address] 01061 MCV (RBC) [Entitic vol] 87 fL Normal 80-100 [facility] Comment on above: Performed By: #### C BCA, HA1C, CMP, TSHR, 2-9, 2276-4, FEPR, 2284-8, 33240-8 #### [facility] ([id number]) [address] [facility], [address] [place] [address] #### 66420-4 #### [facility] ([id number]) [address] [place] [address] 92770 MONOCYTES ABSOLUTE COUNT (10*3/UL) BY AUTOMATED COUNT 0.5 10*3/uL Normal 0.0-0.9 [facility] Comment on above: Performed By: #### C BCA, HA1C, CMP, TSHR, 2132-9, 2276-4, FEPR, 2284-8, 86856-7 #### [facility] ([id number]) [address] [facility] [address] [place] [address] #### 38590-0 #### [facility] ([id number]) [address] [place] [address] 26626 MONOCYTES RELATIVE PERCENT BY AUTOMATED COUNT 5.8 % Normal [facility] Comment on above: Performed By: #### C BCA, HA1C, CMP, TSHR, 2-9, 2276-4, FEPR, 2284-8, 50686-7 #### [facility] ([id number]) [address] [place] [address] #### 09427-0 #### [facility] ([id number]) [address] [place] [address] 35477 NEUTROPHILS ABSOLUTE COUNT BY AUTOMATED COUNT 7.0 10*3/uL High 1.5-6.6 [facility] Comment on above: Performed By: #### C BCA, HA1C, CMP, TSHR, 2-9, 2276-4, FEPR, 2284-8, 20895-7 #### [facility] ([id number]) [address] [facility], [facility] [address] [place] [address] #### 08836-0 #### [facility] ([id number]) [address] [place] [address] 41142 NEUTROPHILS RELATIVE PERCENT BY AUTOMATED COUNT 78.4 % Normal [facility] Comment on above: Performed By: #### C BCA, HA1C, CMP, TSHR, 2-9, 2276-4, FEPR, 2284-8, 83343-8 #### [facility] ([id number]) [address], [address] [place] [address] #### 74883-4 #### [facility] ([id number]) [address] [place] [address] 04496 Platelet mean volume (Bld) [Entitic vol] 7.9 fL Normal 7-12 [facility] Comment on above: Performed By: #### C BCA, HA1C, CMP, TSHR, 2131-9, 2276-4, FEPR, 2284-8, 67842-0 #### [facility] ([id number]) [address] [facility], [address] [place] [address] #### 18824-9 #### [facility] ([id number]) [address] [place] [address] 39515 Platelets (Bld) [#/Vol] 274 10*3/uL Normal 150-450 [facility] Comment on above: Performed By: #### C BCA, HA1C, CMP, TSHR, 2131-9, 2276-4, FEPR, 2284-8, 49767-8 #### [facility] ([id number]) [address], [address] [place] [address] #### 38273-5 #### [facility] ([id number]) [address] [place] [address] 74238 RBC COUNT 4.20 X10E12/L Normal 3.8-5.2 [facility] Comment on above: Performed By: #### C BCA, HA1C, CMP, TSHR, 2-9, 2276-4, FEPR, 2284-8, 53673-4 #### [facility] ([id number]) [address], [address] [place] [address] #### 93385-1 #### [facility] ([id number]) [address] [place] [address] 26638 WBC (Bld) [#/Vol] 8.9 10*3/uL Normal 4-11 [facility] Comment on above: Performed By: #### C BCA, HA1C, CMP, TSHR, 2131-9, 6-4, FEPR, 2284-8, 40046-2 #### [facility] ([id number]) [address] [facility], [address] [place] [address] #### 47741-1 #### [facility] ([id number]) [address] [place] [address] 38393 COMPREHENSIVE METABOLIC PANE Brock 10-11-2024 Albumin [Mass/Vol] 3.1 g/dL Low 3.2-5.3 [facility] Comment on above: Performed By: #### C BCA, HA1C, CMP, TSHR, 2131-10, 6-4, FEPR, 2284-8, 07168-5 #### [facility] ([id number]) [address] [facility], [address] [place] [address] #### 22625-1 #### [facility] ([id number]) [address] [place] [address] 04057 ALP [Catalytic activity/Vol] 354 U/L High 39-130 [facility] Comment on above: Performed By: #### C BCA, HA1C, CMP, TSHR, 2131-10, 6-4, FEPR, 2284-8, 83816-2 #### [facility] ([id number]) [address] [facility], [address] [place] [address] #### 98833-5 #### [facility] ([id number]) [address] [place] [address] ALT [Catalytic activity/Vol] 5629 U/L High <=31 [facility] Comment on above: Performed By: #### C BCA, HA1C, CMP, TSHR, 2-9, 2276-4, FEPR, 2284-8, 40138-8 #### [facility] ([id number]) [address] [facility], [address] [place] [address] #### 42739-4 #### [facility] ([id number]) [address] [place] [address] 13605 Anion gap [Moles/Vol] 7 mmol/L Normal 5-15 [facility] Comment on above: Performed By: #### C BCA, HA1C, CMP, TSHR, 2131-9, 2276-4, FEPR, 2284-8, 88133-5 #### [facility] ([id number]) [address] [facility], [address] [place] [address] #### 05108-0 #### [facility] ([id number]) [address] [place] [address] 46134 AST [Catalytic activity/Vol] 3776 U/L High <=41 [facility] Comment on above: Performed By: #### C BCA, HA1C, CMP, TSHR, 2131-9, 6-4, FEPR, 2284-8, 43718-5 #### [facility] ([id number]) [address] [facility], [address] [place] [address] #### 26738-2 #### [facility] ([id number]) [address] [place] [address] 15111 Bilirubin [Mass/Vol] 2.8 mg/dL High 0.3-1.2 [facility] Comment on above: Performed By: #### C BCA, HA1C, CMP, TSHR, 2131-9, 2276-4, FEPR, 2284-8, 61809-6 #### [facility] ([id number]) [address], [address] [place] [address] #### 97993-8 #### [facility] ([id number]) [address] [place] [address] 25524 Calcium [Mass/Vol] 8.6 mg/dL Normal 8.5-10.5 [facility] Comment on above: Performed By: #### C BCA, HA1C, CMP, TSHR, 2131-9, 2276-4, FEPR, 2284-8, 66027-4 #### [facility] ([id number]) [address], [address] [place] [address] #### 87302-2 #### [facility] ([id number]) [address] [place] [address] 11227 Chloride [Moles/Vol] 106 mmol/L Normal 98-109 [facility] Comment on above: Performed By: #### C BCA, HA1C, CMP, TSHR, 2131-9, 6-4, FEPR, 4-8, 46506-2 #### [facility] ([id number]) [address], [address] [place] [address] #### 79862-0 #### [facility] ([id number]) [address] [place] [address] 35312 CO2 [Moles/Vol] 23 mmol/L Normal 22-32 [facility] Comment on above: Performed By: #### C BCA, HA1C, CMP, TSHR, 2131-9, 6-4, FEPR, 2284-8, 80977-9 #### [facility] ([id number]) [address], [address] [place] [address] #### 38257-8 #### [facility] ([id number]) [address] [place] [address] Creatinine [Mass/Vol] 0.69 mg/dL Normal 0.40-1.00 [facility] Comment on above: Result Comment: METH OD TRACEABLE TO IDMS STANDARD Performed By: #### C BCA, HA1C, CMP, TSHR, 2132-9, 2276-4, FEPR, 2284-8, 96369-1 #### [facility] ([id number]) [address] [place] [address] #### 04277-2 #### [facility] ([id number]) [address] [place] [address] EGFR (CKD-EPI) NON-RACE DEPENDENT >^90 Normal >=60 [facility] Comment on above: Result Comment: eGFR not reported due to non-numeric value for Creatinine. Reported eGFR is based on the CKD-EPI 2020 equation that does not use a race coefficient. Performed By: #### C BCA, HA1C, CMP, TSHR, 2-9, 2276-4, FEPR, 2284-8, 02162-2 #### [facility] ([id number]) [address] [place] [address] #### 82859-9 #### [facility] ([id number]) [address] [place] [address] Glucose [Mass/Vol] 72 mg/dL Normal 65-99 [facility] Comment on above: Performed By: #### C BCA, HA1C, CMP, TSHR, 2-9, 2276-4, FEPR, 2284-8, 49767-0 #### [facility] ([id number]) [address] [place] [address] #### 11315-3 #### [facility] ([id number]) [address] [place] [address] Potassium [Moles/Vol] 4.5 mmol/L Normal 3.5-5.0 [facility] Comment on above: Performed By: #### C BCA, HA1C, CMP, TSHR, 2-9, 2276-4, FEPR, 2284-8, 20460-4 #### [facility] ([id number]) [address], [address] [place] [address] #### 09227-0 #### [facility] ([id number]) [address] [place] [address] Protein [Mass/Vol] 6.8 g/dL Normal 6.0-8.0 [facility] Comment on above: Performed By: #### C BCA, HA1C, CMP, TSHR, 2131-9, 2276-4, FEPR, 2284-8, 95511-0 #### [facility] ([id number]) [address] [facility], [address] [place] [address] #### 73789-0 #### [facility] ([id number]) [address] [place] [address] Sodium [Moles/Vol] 136 mmol/L Normal 134-146 [facility] Comment on above: Performed By: #### C BCA, HA1C, CMP, TSHR, 2131-9, 2276-4, FEPR, 2284-8, 49921-7 #### [facility] ([id number]) [address] [facility] [address], [address] [place] [address] #### 67438-0 #### [facility] ([id number]) [address] [place] [address] Urea nitrogen [Mass/Vol] 26 mg/dL Normal 5-27 [facility] Comment on above: Performed By: #### C BCA, HA1C, CMP, TSHR, 2-9, 2276-4, FEPR, 2284-8, 61045-4 #### [facility] ([id number]) [address] [facility], [address] [place] [address] #### 64380-5 #### [facility] ([id number]) [address] [place] [address], [place] [address] CT ABDOMEN AND PELVIS W CONT on 10-11-2024 CT ABDOMEN AND PELVIS W CONT CT ABDOMEN AND PELVIS W CONT STUDY: ABDOMEN AND PELVIS CT WITH CONTRAST [...] as low as reasonably achievable. Finalized by Miryam Blair MD on 10/11/2024 8:52 PM Normal [facility] CT BRAIN WO CONTon CT BRAIN WO [...] Deepika Field MD on 10/11/2024 10:06 PM Normal [facility] CT CERVICAL SPINE WO CONTon 10-11-2024 CT CERVICAL SPINE WO CONT CT CERVICAL SPINE WO CONT Exam: Cervical spine CT without contrast dated [...] Deepika Field MD on 10/11/2024 8:36 PM Normal [facility] DRUG SCREEN, URINEon 025 AMPHETAMINE/METHAMP Negative Normal Negative [facility] Comment on above: Result Comment: AMPH /METH screening cut off = 1000 ng/mL Performed By: #### C BCA, HA1C, CMP, TSHR, 2132-9, 2276-4, FEPR, 2284-8, 84505-2 #### [facility] ([id number]) [address] [facility], [address] [place] [address] #### 41880-7 #### [facility] ([id number]) [address] [place] [address], [place] [address] BARBITURATES Negative Normal Negative [facility] Comment on above: Result Comment: Brittni iturates screening cut off value = 200 ng/mL Performed By: #### C BCA, HA1C, CMP, TSHR, 2131-9, 6-4, FEPR, 4-8, 85890-0 #### [facility] ([id number]) [address], [address] [place] [address] #### 33008-3 #### [facility] ([id number]) [address] [place] [address]6922 BENZODIAZEPINES Negative Normal Negative [facility] Comment on above: Result Comment: Hernán odiazepines screening cut off value = 200 ng/mL Performed By: #### C BCA, HA1C, CMP, TSHR, 2131-10, 6-4, FEPR, 4-8, 02747-2 #### [facility] ([id number]) [address], [address] [place] [address] #### 36674-2 #### [facility] ([id number]) [address] [place] [address] 64828 CANNABINOIDS Negative Normal Negative [facility] Comment on above: Result Comment: Misha abinoids/THC screening cut off value = 50 ng/mL Performed By: #### C BCA, HA1C, CMP, TSHR, 2131-10, 6-4, FEPR, 4-8, 58861-6 #### [facility] ([id number]) [address], [address] [place] [address] #### 26349-1 #### [facility] ([id number]) [address] [place] [address] 16278 COCAINE METABOLITE Negative Normal [facility] Comment on above: Result Comment: Coca ine screening cut off value = 300 ng/mL Performed By: #### C BCA, HA1C, CMP, TSHR, 2131-10, 6-4, FEPR, 2284-8, 23092-2 #### [facility] ([id number]) [address], [address] [place] [address] #### 72917-5 #### [facility] ([id number]) [address] [place] [address] 35183 ECSTASY Negative Normal Negative [facility] Comment on above: Result Comment: Ecst asy screening cut off value = 500 ng/mL Performed By: #### C BCA, HA1C, CMP, TSHR, 2131-9, 6-4, FEPR, 2284-8, 77488-0 #### [facility] ([id number]) [address] [facility], [address] [place] [address] #### 69572-0 #### [facility] ([id number]) [address] [place] [address] 94383 METHADONE Negative Normal Negative [facility] Comment on above: Result Comment: Meth adone screening cut off value = 300 ng/mL. Performed By: #### C BCA, HA1C, CMP, TSHR, 2131-9, 6-4, FEPR, 2283-8, 61733-5 #### [facility] ([id number]) [address] [facility], [address] [place] [address] #### 02335-5 #### [facility] ([id number]) [address] [place] [address] 72739 OPIATES Negative Normal Negative [facility] Comment on above: Result Comment: Opia radha screening cut off value = 300 ng/mL This test is used for the detection of codeine, hydrocodone (>1000 ng/mL), morphine and hydromorphone (>900 ng/mL) in urine. Performed By: #### C BCA, HA1C, CMP, TSHR, 2-9, 6-4, FEPR, 2284-8, 48849-1 #### [facility] ([id number]) [address] [facility], [address] [place] [address] #### 30230-0 #### [facility] ([id number]) [address] [place] [address] 06511 OXYCODONE Negative Normal Negative [facility] Comment on above: Result Comment: Oxyc odone screening cut off value = 300 ng/mL This test is used for the detection of oxycodone and oxymorphone in urine. Performed By: #### C BCA, HA1C, CMP, TSHR, 2131-9, 6-4, FEPR, 2284-8, 30813-7 #### [facility] ([id number]) [address] [facility], [address] [place] [address] #### 75663-4 #### [facility] ([id number]) [address] [place] [address] 45293 PHENCYCLIDINE Negative Normal Negative [facility] Comment on above: Result Comment: Phen cyclidine screening cut off value = 25 ng/mL Performed By: #### C BCA, HA1C, CMP, TSHR, 2131-9, 6-4, FEPR, 2284-8, 77291-3 #### [facility] ([id number]) [address] [facility], [facility] [address] [place] [address] #### 91353-8 #### [facility] ([id number]) [address] [place] [address] 83929 LACTATEon 10-11-2024 Lactate [Moles/Vol] 2.7 mmol/L High 0.4-2.0 [facility] Comment on above: Performed By: #### C BCA, HA1C, CMP, TSHR, 2131-9, 6-4, FEPR, 2284-8, 30402-1 #### [facility] ([id number]) [address] [facility], [address] [place] [address] #### 24444-0 #### [facility] ([id number]) [address] [place] [address] 94687 LACTATE W/ REFLEXon 10-12-19 25 LACTATE W/REFLEX 2.6 mmol/L High 0.4-2.0 [facility] Comment on above: Performed By: #### C BCA, HA1C, CMP, TSHR, 9, 6-4, FEPR, 2284-8, 74380-3 #### [facility] ([id number]) [address], [address] [place] [address] #### 13232-1 #### [facility] ([id number]) [address] [place] [address] 02869 LIPASEon 10-11-2024 Lipase [Catalytic activity/Vol] 722 U/L High 11-82 [facility] Comment on above: Result Comment: I-OH This is an appended report. These results have been appended to a previously final verified report. Performed By: #### C BCA, HA1C, CMP, TSHR, 2131-10, 6-, FEPR, 2283-, 77844-1 #### [facility] ([id number]) [address], [address] [place] [address] #### 53329-9 #### [facility] ([id number]) [address] [place] [address] 52345 MAGNESIUMon 10-11-2024 Magnesium [Mass/Vol] 2.3 mg/dL Normal 1.8-2.6 [facility] Comment on above: Performed By: #### C BCA, HA1C, CMP, TSHR, 2131-10, 6-, FEPR, 4-8, 31801-4 #### [facility] ([id number]) [address], [address] [place] [address] #### 70405-3 #### [facility] ([id number]) [address] [place] [address] 51561 POCT NURSING URINE MACROSCOP IC UAon 10-11-2024 BILIRUBIN KYLIE Small Abnormal Negative [facility] Comment on above: Performed By: #### C BCA, HA1C, CMP, TSHR, 2-9, 2276-4, FEPR, 2284-8, 42137-5 #### [facility] ([id number]) [address] [facility], [address] [place] [address] #### 49990-5 #### [facility] ([id number]) [address] [place] [address] 85859 BLOOD/HGB KYLIE Negative Normal Negative [facility] Comment on above: Performed By: #### C BCA, HA1C, CMP, TSHR, 2131-9, 6-4, FEPR, 4-8, 02015-1 #### [facility] ([id number]) [address] [facility], [address] [place] [address] #### 53445-4 #### [facility] ([id number]) [address] [place] [address] 51892 GLUCOSE KYLIE 500 mg/dL Abnormal Negative [facility] Comment on above: Performed By: #### C BCA, HA1C, CMP, TSHR, 2131-9, 6-4, FEPR, 4-8, 26833-2 #### [facility] ([id number]) [address] [facility], [address] [place] [address] #### 56327-5 #### [facility] ([id number]) [address] [place] [address] 53319 KETONES KYLIE 40 mg/dL Abnormal Negative [facility] Comment on above: Performed By: #### C BCA, HA1C, CMP, TSHR, 2-9, 2276-4, FEPR, 2284-8, 27058-1 #### [facility] ([id number]) [address] [facility], [address] [place] [address] #### 79227-0 #### [facility] ([id number]) [address] [place] [address] 63998 LEUKOCYTE ESTERASE KYLIE Negative Normal Negative [facility] Comment on above: Performed By: #### C BCA, HA1C, CMP, TSHR, 2131-9, 2276-4, FEPR, 4-8, 39788-1 #### [facility] ([id number]) [address] [facility], [address] [place] [address] #### 81443-1 #### [facility] ([id number]) [address] [place] [address] 30664 NITRITE KYLIE Negative Normal Negative [facility] Comment on above: Performed By: #### C BCA, HA1C, CMP, TSHR, 2131-10, 6-4, FEPR, 2283-, 85237-0 #### [facility] ([id number]) [address] [facility], [address] [place] [address] #### 27905-6 #### [facility] ([id number]) [address] [place] [address] 91310 PH KYLIE 6.5 Normal 5.0, 6.0, 6.5, 7.0, 7.5, 8.0, 8.5, 5.5 [facility] Comment on above: Performed By: #### C BCA, HA1C, CMP, TSHR, 9, 6-4, FEPR, 2284-8, 29509-9 #### [facility] ([id number]) [address] [facility], [address] [place] [address] #### 53678-7 #### [facility] ([id number]) [address] [place] [address] 13714 PROTEIN KYLIE 100 mg/dL Abnormal Negative [facility] Comment on above: Performed By: #### C BCA, HA1C, CMP, TSHR, 2-9, 2276-4, FEPR, 2284-8, 72675-6 #### [facility] ([id number]) [address], [address] [place] [address] #### 10230-7 #### [facility] ([id number]) [address] [place] [address] 32801 SPECIFIC GRAVITY KYLIE 1.020 Normal 1.010, 1.015, 1.020, 1.025 [facility] Comment on above: Performed By: #### C BCA, HA1C, CMP, TSHR, 2-9, 2276-4, FEPR, 2284-8, 04002-5 #### [facility] ([id number]) [address] [facility], [address] [place] [address] #### 16834-3 #### [facility] ([id number]) [address] [place] [address] UROBILINOGEN KYLIE 0.2 E.U./dL Normal [facility] Comment on above: Performed By: #### C BCA, HA1C, CMP, TSHR, 2-9, 2276-4, FEPR, 2284-8, 64025-5 #### [facility] ([id number]) [address], [address] [place] [address] #### 19550-4 #### [facility] ([id number]) [address] [place] [address] 41589 TROP I, HIGH SENSITIVITY 1 H OURon 10-11-2024 TROPONIN I, HIGH SENSITIVITY 33 ng/L High <16 [facility] Comment on above: Order Comment: Ridge tions of hs-Troponin may be due to causesother than myocardial ischemia.Recommend serial hs-Troponin testing be performed.For the initial evaluation and management of chestpain patients, refer to the algorithms linked below.Emergency Patient:[email or web address] Performed By: #### C BCA, HA1C, CMP, TSHR, 2-9, 2276-4, FEPR, 2284-8, 03292-6 #### [facility] ([id number]) [address] [facility], [address] [place] [address] #### 96723-5 #### [facility] ([id number]) [address] [place] [address] 69401 TROPONIN I, HIGH SENSITIVITY 0 HOURon 10-11-2024 TROPONIN I, HIGH SENSITIVITY 30 ng/L High <16 [facility] Comment on above: Performed By: #### C BCA, HA1C, CMP, TSHR, 2131-9, 2276-4, FEPR, 2284-8, 63244-8 #### [facility] ([id number]) [address] [facility], [address] [place] [address] #### 02448-8 #### [facility] ([id number]) [address] [place] [address] 41243 CBC WITH AUTO DIFFERENTIALon 09-18-2024 BASOPHILS ABSOLUTE COUNT (10*3/UL) BY AUTOMATED COUNT 0.1 10*3/uL Normal 0.0-0.2 [facility] Comment on above: Performed By: #### C BCA, PINR, 02329-8 #### [facility] ([id number]) [address] [facility], [address] [place] [address] BASOPHILS RELATIVE PERCENT BY AUTOMATED COUNT 0.7 % Normal [facility] Comment on above: Performed By: #### C BCA, PINR, 44523-0 #### [facility] ([id number]) [address] [address] [place] [address] CELLAVISION DIFFERENTIAL TYPE AUTOMATED DIFFERENTIAL Normal [facility] Comment on above: Performed By: #### Shira [place], PINR, 38308-7 #### [facility] ([id number]) [address] [address] [place] [address] Eosinophils (Bld) [#/Vol] 0.6 10*3/uL High 0.0-0.4 [facility] Comment on above: Performed By: #### Shira [place], PINR, 02154-9 #### [facility] ([id number]) [address] [address] [place] [address] EOSINOPHILS RELATIVE PERCENT BY AUTOMATED COUNT 8.0 % Normal [facility] Comment on above: Performed By: #### Shira [place], PINR, 98137-4 #### [facility] ([id number]) [address] [address] [place] [address] Erythrocyte distribution width (RBC) [Ratio] 14.2 % Normal 11.5-15 [facility] Comment on above: Performed By: #### Shira [place], PINR, 79082-7 #### [facility] ([id number]) [address] [address] [place] [address] Hematocrit (Bld) [Volume fraction] 28.2 % Low 35-47 [facility] Comment on above: Performed By: #### Shira [place], PINR, 77711-1 #### [facility] ([id number]) [address] [address] [place] [address] Hemoglobin (Bld) [Mass/Vol] 9.6 g/dL Low 11.7-15.5 [facility] Comment on above: Performed By: #### Shira [place], PINR, 16814-2 #### [facility] ([id number]) [address] [address] [place] [address] LYMPHOCYTES ABSOLUTE COUNT (10*3/UL) BY AUTOMATED COUNT 1.2 10*3/uL Normal 1.0-3.5 [facility] Comment on above: Performed By: #### C TALISHA, PINR, 21011-7 #### [facility] ([id number]) [address], [facility] [address] [place] [address] LYMPHOCYTES RELATIVE PERCENT BY AUTOMATED COUNT 15.8 % Normal [facility] Comment on above: Performed By: #### C TALISHA, PINR, 89401-6 #### [facility] ([id number]) [address], [facility] [address] [place] [address] MCH (RBC) [Entitic mass] 31.3 pg Normal 27-34 [facility] Comment on above: Performed By: #### Shira [place], PINR, 40307-2 #### [facility] ([id number]) [address], [address] [address] MCHC (RBC) [Mass/Vol] 34.2 g/dL Normal 32-36 [facility] Comment on above: Performed By: #### Shira [place], PINR, 22140-2 #### [facility] ([id number]) [address], [facility] [address] [place] [address] MCV (RBC) [Entitic vol] 91 fL Normal 80-100 [facility] Comment on above: Performed By: #### Shira BCA, PINR, 09765-5 #### [facility] ([id number]) [address], [facility] [address] [place] [address] MONOCYTES ABSOLUTE COUNT (10*3/UL) BY AUTOMATED COUNT 0.8 10*3/uL Normal 0.0-0.9 [facility] Comment on above: Performed By: #### Shira BCA, PINR, 60212-3 #### [facility] ([id number]) [address], [address] [place] [address] MONOCYTES RELATIVE PERCENT BY AUTOMATED COUNT 9.9 % Normal [facility] Comment on above: Performed By: #### Shira [place], PINR, 07337-4 #### [facility] ([id number]) [address], [address] [place] [address] NEUTROPHILS ABSOLUTE COUNT BY AUTOMATED COUNT 5.0 10*3/uL Normal 1.5-6.6 [facility] Comment on above: Performed By: #### Shira [place], PINR, 54810-0 #### [facility] ([id number]) [address], [facility] [address] [place] [address] NEUTROPHILS RELATIVE PERCENT BY AUTOMATED COUNT 65.6 % Normal [facility] Comment on above: Performed By: #### Shira [place], PINR, 48665-0 #### [facility] ([id number]) [address], [address] [place] [address] Platelet mean volume (Bld) [Entitic vol] 8.2 fL Normal 7-12 [facility] Comment on above: Performed By: #### Shira [place], PINR, 52152-3 #### [facility] ([id number]) [address], [address] [place] [address] Platelets (Bld) [#/Vol] 300 10*3/uL Normal 150-450 [facility] Comment on above: Performed By: #### Shira [place], PINR, 61424-9 #### [facility] ([id number]) [address], [address] [place] [address] RBC COUNT 3.09 X10E12/L Low 3.8-5.2 [facility] Comment on above: Performed By: #### Shira [place], PINR, 23595-4 #### [facility] ([id number]) [address], [address] [place] [address] WBC (Bld) [#/Vol] 7.7 10*3/uL Normal 4-11 [facility] Comment on above: Performed By: #### C BCA, PINR, 99414-4 #### [facility] ([id number]) [address], [address] [place] [address] COMPREHENSIVE METABOLIC PANE Brock 09-18-2024 Albumin [Mass/Vol] 2.9 g/dL Low 3.2-5.3 [facility] Comment on above: Performed By: #### C BCA, PINR, 33005-6 #### [facility] ([id number]) [address], [address] [place] [address] ALP [Catalytic activity/Vol] 80 U/L Normal 39-130 [facility] Comment on above: Performed By: #### C BCA, PINR, 74696-5 #### [facility] ([id number]) [address], [address] [place] [address] ALT [Catalytic activity/Vol] 33 U/L High <=31 [facility] Comment on above: Performed By: #### C BCA, PINR, 84119-1 #### [facility] ([id number]) [address], [address] [place] [address] Anion gap [Moles/Vol] 6 mmol/L Normal 5-15 [facility] Comment on above: Performed By: #### C BCA, PINR, 42098-3 #### [facility] ([id number]) [address], [address] [place] [address] AST [Catalytic activity/Vol] 38 U/L Normal <=41 [facility] Comment on above: Performed By: #### C BCA, PINR, 73871-6 #### [facility] ([id number]) [address], [address] [place] [address] Bilirubin [Mass/Vol] 0.4 mg/dL Normal 0.3-1.2 [facility] Comment on above: Performed By: #### C BCA, PINR, 20848-5 #### [facility] ([id number]) [address], [address] [place] [address] Calcium [Mass/Vol] 8.1 mg/dL Low 8.5-10.5 [facility] Comment on above: Performed By: #### C BCA, PINR, 71385-0 #### [facility] ([id number]) [address], [address] [place] [address] Chloride [Moles/Vol] 107 mmol/L Normal 98-109 [facility] Comment on above: Performed By: #### C BCA, PINR, 19434-5 #### [facility] ([id number]) [address], [address] [place] [address] CO2 [Moles/Vol] 24 mmol/L Normal 22-32 [facility] Comment on above: Performed By: #### C BCA, PINR, 26070-1 #### [facility] ([id number]) [address], [address] [place] [address] Creatinine [Mass/Vol] 0.44 mg/dL Normal 0.40-1.00 [facility] Comment on above: Result Comment: METH OD TRACEABLE TO IDMS STANDARD Performed By: #### C TALISHA, PINR, 80744-4 #### [facility] ([id number]) [address], [address] [place] [address] EGFR (CKD-EPI) NON-RACE DEPENDENT >^90 Normal >=60 [facility] Comment on above: Result Comment: Repo rted eGFR is based on the CKD-EPI 2020 equation that does not use a race coefficient. Performed By: #### C BCA, PINR, 10122-0 #### [facility] ([id number]) [address], [address] [place] [address] Glucose [Mass/Vol] 93 mg/dL Normal 65-99 [facility] Comment on above: Performed By: #### C BCA, PINR, 36904-2 #### [facility] ([id number]) [address], [address] [place] [address] Potassium [Moles/Vol] 3.8 mmol/L Normal 3.5-5.0 [facility] Comment on above: Performed By: #### C TALISHA, PINR, 75966-1 #### [facility] ([id number]) [address], [address] [place] [address] Protein [Mass/Vol] 5.5 g/dL Low 6.0-8.0 [facility] Comment on above: Performed By: #### Shira [place], PINR, 36323-4 #### [facility] ([id number]) [address], [address] [place] [address] Sodium [Moles/Vol] 137 mmol/L Normal 134-146 [facility] Comment on above: Performed By: #### C TALISHA, PINR, 61939-8 #### [facility] ([id number]) [address], [address] [place] [address] Urea nitrogen [Mass/Vol] 11 mg/dL Normal 5-27 [facility] Comment on above: Performed By: #### Shira BCA, PINR, 19018-2 #### [facility] ([id number]) [address], [address] [place] [address] MAGNESIUMon 09-18-2024 Magnesium [Mass/Vol] 1.6 mg/dL Low 1.8-2.6 [facility] Comment on above: Performed By: #### C BCA, PINR, 31062-6 #### [facility] ([id number]) [address], [address] [place] [address] PHOSPHORUSon 09-18-2024 Phosphate [Mass/Vol] 3.5 mg/dL Normal 2.4-4.9 [facility] Comment on above: Performed By: #### C TALISHA, PINR, 21899-5 #### [facility] ([id number]) [address], [address] [place] [address] CBC WITH AUTO DIFFERENTIALon 09-17-2024 BASOPHILS ABSOLUTE COUNT (10*3/UL) BY AUTOMATED COUNT 0.1 10*3/uL Normal 0.0-0.2 [facility] Comment on above: Performed By: #### C TALISHA, PINR, 66296-6 #### [facility] ([id number]) [address], [address] [place] [address] BASOPHILS RELATIVE PERCENT BY AUTOMATED COUNT 0.8 % Normal [facility] Comment on above: Performed By: #### C TALISHA, PINR, 11276-4 #### [facility] ([id number]) [address], [address] [place] [address] CELLAVISION DIFFERENTIAL TYPE AUTOMATED DIFFERENTIAL Normal [facility] Comment on above: Performed By: #### C TALISHA, PINR, 20526-9 #### [facility] ([id number]) [address], [address] [place] [address] Eosinophils (Bld) [#/Vol] 0.9 10*3/uL High 0.0-0.4 [facility] Comment on above: Performed By: #### Shira [place], PINR, [id number] #### [facility] ([id number]) [address], [address] [place] [address] EOSINOPHILS RELATIVE PERCENT BY AUTOMATED COUNT 8.1 % Normal [facility] Comment on above: Performed By: #### C TALISHA, PINR, 15635-0 #### [facility] ([id number]) [address], [address] [place] [address] Erythrocyte distribution width (RBC) [Ratio] 14.4 % Normal 11.5-15 [facility] Comment on above: Performed By: #### C TALISHA, PINR, 22040-7 #### [facility] ([id number]) [address], [address] [place] [address] Hematocrit (Bld) [Volume fraction] 27.4 % Low 35-47 [facility] Comment on above: Performed By: #### Shira [place]ALL, PINR, [id number] #### [facility] ([id number]) [address], [address] [place] [address] Hemoglobin (Bld) [Mass/Vol] 9.5 g/dL Low 11.7-15.5 [facility] Comment on above: Performed By: #### Shira [place]ALL, PINR, 85231-1 #### [facility] ([id number]) [address], [address] [place] [address] LYMPHOCYTES ABSOLUTE COUNT (10*3/UL) BY AUTOMATED COUNT 1.4 10*3/uL Normal 1.0-3.5 [facility] Comment on above: Performed By: #### Shira WO[place]ALL, PINR, [id number] #### [facility] ([id number]) [address], [address] [place] [address] LYMPHOCYTES RELATIVE PERCENT BY AUTOMATED COUNT 13.5 % Normal [facility] Comment on above: Performed By: #### Shira [place]ALL, PINR, [id number] #### [facility] ([id number]) [address], [address] [place] [address] MCH (RBC) [Entitic mass] 31.8 pg Normal 27-34 [facility] Comment on above: Performed By: #### Shira WOODALL, PINR, 39792-4 #### [facility] ([id number]) [address], [address] [place] [address] MCHC (RBC) [Mass/Vol] 34.6 g/dL Normal 32-36 [facility] Comment on above: Performed By: #### Shira [place]ALL, PINR, 93897-8 #### [facility] ([id number]) [address], [address] [place] [address] MCV (RBC) [Entitic vol] 92 fL Normal 80-100 [facility] [place] Comment on above: Performed By: #### C TALISHA, PINR, 45058-6 #### [facility] ([id number]) [address], [address] [place] [address] MONOCYTES ABSOLUTE COUNT (10*3/UL) BY AUTOMATED COUNT 0.9 10*3/uL Normal 0.0-0.9 [facility] Comment on above: Performed By: #### Shira [place], PINR, 53633-5 #### [facility] ([id number]) [address], [address] [place] [address] MONOCYTES RELATIVE PERCENT BY AUTOMATED COUNT 8.6 % Normal [facility] Comment on above: Performed By: #### Shira WOODALL, PINR, 97081-9 #### [facility] ([id number]) [address], [address] [place] [address] NEUTROPHILS ABSOLUTE COUNT BY AUTOMATED COUNT 7.3 10*3/uL High 1.5-6.6 [facility] Comment on above: Performed By: #### Shira WOODALL, PINR, 07827-6 #### [facility] ([id number]) [address], [address] [place] [address] NEUTROPHILS RELATIVE PERCENT BY AUTOMATED COUNT 69.0 % Normal [facility] Comment on above: Performed By: #### Shira BCA, PINR, 99672-2 #### [facility] ([id number]) [address], [address] [place] [address] Platelet mean volume (Bld) [Entitic vol] 8.5 fL Normal 7-12 [facility] Comment on above: Performed By: #### Shira WOODALL, PINR, 32754-8 #### [facility] ([id number]) [address], [address] [place] [address] Platelets (Bld) [#/Vol] 310 10*3/uL Normal 150-450 [facility] Comment on above: Performed By: #### C BCA, PINR, 23373-9 #### [facility] ([id number]) [address], [address] [place] [address] RBC COUNT 2.99 X10E12/L Low 3.8-5.2 [facility] Comment on above: Performed By: #### C TALISHA, PINR, 34775-0 #### [facility] ([id number]) [address], [address] [place] [address] WBC (Bld) [#/Vol] 10.5 10*3/uL Normal 4-11 [facility] Comment on above: Performed By: #### Shira WOODALL, PINR, 14872-6 #### [facility] ([id number]) [address], [address] [place] [address] COMPREHENSIVE METABOLIC PANE Brock 09-17-2024 Albumin [Mass/Vol] 2.7 g/dL Low 3.2-5.3 [facility] Comment on above: Performed By: #### C BCA, PINR, 22534-7 #### [facility] ([id number]) [address], [address] [place] [address] ALP [Catalytic activity/Vol] 74 U/L Normal 39-130 [facility] Comment on above: Performed By: #### C BCA, PINR, 10977-8 #### [facility] ([id number]) [address], [address] [place] [address] ALT [Catalytic activity/Vol] 14 U/L Normal <=31 [facility] Comment on above: Performed By: #### C BCA, PINR, 42170-7 #### [facility] ([id number]) [address], [address] [place] [address] Anion gap [Moles/Vol] 5 mmol/L Normal 5-15 [facility] Comment on above: Performed By: #### C TALISHA PINR, 92033-9 #### [facility] ([id number]) [address], [address] [place], [place] [address] AST [Catalytic activity/Vol] 22 U/L Normal <=41 [facility] Comment on above: Performed By: #### C TALISHA PINR, 07460-3 #### [facility] ([id number]) [address], [address] [place] [address] Bilirubin [Mass/Vol] 0.6 mg/dL Normal 0.3-1.2 [facility] Comment on above: Performed By: #### Shira WOODALL PINR, 90070-1 #### [facility] ([id number]) [address], [address] [place] [address] Calcium [Mass/Vol] 7.9 mg/dL Low 8.5-10.5 [facility] Comment on above: Performed By: #### C TALISHA PINR, 77665-0 #### [facility] ([id number]) [address], [address] [place], [place] [address] Chloride [Moles/Vol] 106 mmol/L Normal 98-109 [facility] Comment on above: Performed By: #### Shira WOODALL PINR, 45664-0 #### [facility] ([id number]) [address], [address] [place], [place] [address] CO2 [Moles/Vol] 26 mmol/L Normal 22-32 [facility] Comment on above: Performed By: #### Shira WOODALL, PINR, 98180-4 #### [facility] ([id number]) [address], [address] [place] [address] Creatinine [Mass/Vol] 0.47 mg/dL Normal 0.40-1.00 [facility] Comment on above: Result Comment: METH OD TRACEABLE TO IDMS STANDARD Performed By: #### C KEVIN WOODALL, 32315-3 #### [facility] ([id number]) [address], [address] [place] [address] EGFR (CKD-EPI) NON-RACE DEPENDENT >^90 Normal >=60 [facility] Comment on above: Result Comment: Repo rted eGFR is based on the CKD-EPI 2020 equation that does not use a race coefficient. Performed By: #### C TALISHA PINR, 77481-5 #### [facility] ([id number]) [address], [address] [place], [place] [address] Glucose [Mass/Vol] 89 mg/dL Normal 65-99 [facility] Comment on above: Performed By: #### Shira WOODALL PINR, 44018-9 #### [facility] ([id number]) [address], [address] [place] [address] Potassium [Moles/Vol] 3.6 mmol/L Normal 3.5-5.0 [facility] Comment on above: Performed By: #### Shira WOODALL PINR, 72032-5 #### [facility] ([id number]) [address], [address] [place], [place] [address] Protein [Mass/Vol] 5.1 g/dL Low 6.0-8.0 [facility] Comment on above: Performed By: #### C TALISHA PINR, 48846-7 #### [facility] ([id number]) [address], [address] [place] [address] Sodium [Moles/Vol] 137 mmol/L Normal 134-146 [facility] Comment on above: Performed By: #### Shira WOODALL PINR, 77373-6 #### [facility] ([id number]) [address], [address] [place] [address] Urea nitrogen [Mass/Vol] 5 mg/dL Normal 5-27 [facility] Comment on above: Performed By: #### KEVIN Silva BCA, 32564-1 #### [facility] ([id number]) [address], [address] [place] [address] MAGNESIUMon 09-17-2024 Magnesium [Mass/Vol] 2.3 mg/dL Normal 1.8-2.6 [facility] Comment on above: Performed By: #### KEVIN Silva BCA, 13883-1 #### [facility] ([id number]) [address], [address] [place] [address] Magnesium [Mass/Vol] 1.6 mg/dL Low 1.8-2.6 [facility] Comment on above: Performed By: #### KEVIN Silva BCA, 98345-4 #### [facility] ([id number]) [address], [address] [place] [address] PHOSPHORUSon 09-17-2024 Phosphate [Mass/Vol] 2.4 mg/dL Normal 2.4-4.9 [facility] Comment on above: Performed By: #### KEVIN Silva BCA, 19694-2 #### [facility] ([id number]) [address], [address] [place] [address] C DIFFICILE BY PCRon 025 027 NAP1 Negative Normal Presumptive Negative [facility] Comment on above: Result Comment: Justyna lima methodology is nucleic acid amplification by real-time PCR for detection of C. difficile toxin gene sequences performed on [employer] Instrument System. Performed By: #### KEVIN Silva BCA, 59382-2 #### [facility] ([id number]) [address], [address] [place] [address] TOXIGENIC C DIFF Negative Normal Negative [facility] Comment on above: Performed By: #### KEVIN Silva BCA, 01837-9 #### [facility] ([id number]) [address], [address] [place] [address] CBC WITH AUTO DIFFERENTIALon 09-16-2024 BASOPHILS ABSOLUTE COUNT (10*3/UL) BY AUTOMATED COUNT 0.1 10*3/uL Normal 0.0-0.2 [facility] Comment on above: Performed By: #### C TALISHA, PINR, 73121-0 #### [facility] ([id number]) [address], [address] [place] [address] BASOPHILS RELATIVE PERCENT BY AUTOMATED COUNT 0.4 % Normal [facility] Comment on above: Performed By: #### Shira WOODALL, PINR, 23504-8 #### [facility] ([id number]) [address], [address] [place] [address] CELLAVISION DIFFERENTIAL TYPE AUTOMATED DIFFERENTIAL Normal [facility] Comment on above: Performed By: #### Shira WOODALL, PINR, 39165-0 #### [facility] ([id number]) [address], [address] [place] [address] Eosinophils (Bld) [#/Vol] 0.9 10*3/uL High 0.0-0.4 [facility] Comment on above: Performed By: #### Shira WOODALL, PINR, 80121-8 #### [facility] ([id number]) [address], [address] [place] [address] EOSINOPHILS RELATIVE PERCENT BY AUTOMATED COUNT 6.5 % Normal [facility] Comment on above: Performed By: #### Shira WOODALL, PINR, 49841-0 #### [facility] ([id number]) [address], [address] [place] [address] Erythrocyte distribution width (RBC) [Ratio] 14.3 % Normal 11.5-15 [facility] Comment on above: Performed By: #### Shira BCA, PINR, 45939-3 #### [facility] ([id number]) [address], [address] [place] [address] Hematocrit (Bld) [Volume fraction] 27.4 % Low 35-47 [facility] Comment on above: Performed By: #### Shira WOODALL PINR, 26374-2 #### [facility] ([id number]) [address], [address] [place] [address] Hemoglobin (Bld) [Mass/Vol] 9.3 g/dL Low 11.7-15.5 [facility] Comment on above: Performed By: #### Shira WOODALL PINR, 02510-9 #### [facility] ([id number]) [address], [facility] [address] [place] [address] LYMPHOCYTES ABSOLUTE COUNT (10*3/UL) BY AUTOMATED COUNT 1.5 10*3/uL Normal 1.0-3.5 [facility] Comment on above: Performed By: #### Shira WOODALL PINR, 81578-7 #### [facility] ([id number]) [address], [address] [place] [address] LYMPHOCYTES RELATIVE PERCENT BY AUTOMATED COUNT 11.0 % Normal [facility] Comment on above: Performed By: #### Shira WOODALL, PINR, 52856-8 #### [facility] ([id number]) [address], [address] [place] [address] MCH (RBC) [Entitic mass] 31.1 pg Normal 27-34 [facility] Comment on above: Performed By: #### Shira WOODALL, PINR, 55145-8 #### [facility] ([id number]) [address], [address] [place] [address] MCHC (RBC) [Mass/Vol] 34.0 g/dL Normal 32-36 [facility] Comment on above: Performed By: #### Shira WOODALL, PINR, 70645-1 #### [facility] ([id number]) [address], [address] [place] [address] MCV (RBC) [Entitic vol] 91 fL Normal 80-100 [facility] Comment on above: Performed By: #### Shira WOODALL, PINR, 92945-4 #### [facility] ([id number]) [address], [address] [place] [address] MONOCYTES ABSOLUTE COUNT (10*3/UL) BY AUTOMATED COUNT 1.0 10*3/uL High 0.0-0.9 [facility] Comment on above: Performed By: #### C TALISHA, PINR, 70018-4 #### [facility] ([id number]) [address], [facility] [address] [place] [address] MONOCYTES RELATIVE PERCENT BY AUTOMATED COUNT 7.4 % Normal [facility] Comment on above: Performed By: #### Shira WOODALL, PINR, 83597-6 #### [facility] ([id number]) [address], [address] [place] [address] NEUTROPHILS ABSOLUTE COUNT BY AUTOMATED COUNT 10.3 10*3/uL High 1.5-6.6 [facility] Comment on above: Performed By: #### Shira WOODALL, PINR, 64072-8 #### [facility] ([id number]) [address], [facility] [address] [place] [address] NEUTROPHILS RELATIVE PERCENT BY AUTOMATED COUNT 74.7 % Normal [facility] Comment on above: Performed By: #### Shira WOODALL PINR, 25112-5 #### [facility] ([id number]) [address], [address] [place] [address] Platelet mean volume (Bld) [Entitic vol] 8.3 fL Normal 7-12 [facility] Comment on above: Performed By: #### Shira WOODALL, PINR, 35665-2 #### [facility] ([id number]) [address], [address] [place] [address] Platelets (Bld) [#/Vol] 328 10*3/uL Normal 150-450 [facility] Comment on above: Performed By: #### Shira WOODALL PINR, 32780-0 #### [facility] ([id number]) [address], [address] [place] [address] RBC COUNT 3.00 X10E12/L Low 3.8-5.2 [facility] Comment on above: Performed By: #### Shira WOODALL PINR, 88395-9 #### [facility] ([id number]) [address], [address] [place] [address] WBC (Bld) [#/Vol] 13.8 10*3/uL High 4-11 [facility] Comment on above: Performed By: #### Shira WOODALL PINR, 26551-8 #### [facility] ([id number]) [address], [address] [place] [address] COMPREHENSIVE METABOLIC PANE Brock 09-16-2024 Albumin [Mass/Vol] 2.8 g/dL Low 3.2-5.3 [facility] Comment on above: Performed By: #### Shira WOODALL PINR, 55635-2 #### [facility] ([id number]) [address], [address] [place] [address] ALP [Catalytic activity/Vol] 72 U/L Normal 39-130 [facility] Comment on above: Performed By: #### Shira WOODALL PINR, 69329-9 #### [facility] ([id number]) [address], [address] [place] [address] ALT [Catalytic activity/Vol] 7 U/L Normal <=31 [facility] Comment on above: Performed By: #### Shira WOODALL PINR, 96635-9 #### [facility] ([id number]) [address], [address] [place] [address] Anion gap [Moles/Vol] 3 mmol/L Low 5-15 [facility] Comment on above: Performed By: #### C BCA, PINR, 01120-7 #### [facility] ([id number]) [address], [address] [place] [address] AST [Catalytic activity/Vol] 15 U/L Normal <=41 [facility] Comment on above: Performed By: #### C BCA, PINR, 98844-4 #### [facility] ([id number]) [address], [address] [place] [address] Bilirubin [Mass/Vol] 0.7 mg/dL Normal 0.3-1.2 [facility] Comment on above: Performed By: #### C BCA, PINR, 57719-8 #### [facility] ([id number]) [address], [address] [place] [address] Calcium [Mass/Vol] 7.9 mg/dL Low 8.5-10.5 [facility] Comment on above: Performed By: #### C BCA, PINR, 28137-0 #### [facility] ([id number]) [address], [address] [place] [address] Chloride [Moles/Vol] 107 mmol/L Normal 98-109 [facility] Comment on above: Performed By: #### C BCA, PINR, 42653-4 #### [facility] ([id number]) [address], [address] [place] [address] CO2 [Moles/Vol] 28 mmol/L Normal 22-32 [facility] Comment on above: Performed By: #### C BCA, PINR, 99647-9 #### [facility] ([id number]) [address], [address] [place] [address] Creatinine [Mass/Vol] 0.48 mg/dL Normal 0.40-1.00 [facility] Comment on above: Result Comment: METH OD TRACEABLE TO IDMS STANDARD Performed By: #### C TALISHA PINR, 91800-2 #### [facility] ([id number]) [address], [address] [place] [address] EGFR (CKD-EPI) NON-RACE DEPENDENT >^90 Normal >=60 [facility] Comment on above: Result Comment: Repo rted eGFR is based on the CKD-EPI 2020 equation that does not use a race coefficient. Performed By: #### C TALISHA PINR, 17925-6 #### [facility] ([id number]) [address], [address] [place] [address] Glucose [Mass/Vol] 96 mg/dL Normal 65-99 [facility] Comment on above: Performed By: #### C TALISHA PINR, 24389-4 #### [facility] ([id number]) [address], [address] [place] [address] Potassium [Moles/Vol] 4.2 mmol/L Normal 3.5-5.0 [facility] Comment on above: Performed By: #### C TALISHA PINR, 83932-8 #### [facility] ([id number]) [address], [address] [place] [address] Protein [Mass/Vol] 5.3 g/dL Low 6.0-8.0 [facility] Comment on above: Performed By: #### C TALISHA PINR, 54717-6 #### [facility] ([id number]) [address], [address] [place] [address] Sodium [Moles/Vol] 138 mmol/L Normal 134-146 [facility] Comment on above: Performed By: #### C TALISHA PINR, 52057-8 #### [facility] ([id number]) [address], [address] [place] [address] Urea nitrogen [Mass/Vol] 9 mg/dL Normal 5-27 [facility] Comment on above: Performed By: #### C TALISHA PINR, 65404-8 #### [facility] ([id number]) [address], [address] [place] [address] CT ABDOMEN AND PELVIS W CONT on [...] Nixon MD on 09/16/2024 2:53 PM Normal [facility] IONIZED CALCIUMon 09-16-2024 IONIZED CALCIUM - ICAN 4.5 mg/dL Normal 4.5-5.3 [facility] Comment on above: Performed By: #### C KEVIN WOODALL, 55411-8 #### [facility] ([id number]) [address], [address] [place] [address] MAGNESIUMon 09-16-2024 Magnesium [Mass/Vol] 1.9 mg/dL Normal 1.8-2.6 [facility] Comment on above: Performed By: #### C KEVIN WOODALL, 08646-0 #### [facility] ([id number]) [address] [place] [address] PHOSPHORUSon 09-16-2024 Phosphate [Mass/Vol] 1.5 mg/dL Low 2.4-4.9 [facility] Comment on above: Performed By: #### KEVIN Silva BCA, 92930-3 #### [facility] ([id number]) [address] [place] [address] CBC WITH AUTO DIFFERENTIALon 09-15-2024 BASOPHILS ABSOLUTE COUNT (10*3/UL) BY AUTOMATED COUNT 0.1 10*3/uL Normal 0.0-0.2 [facility] Comment on above: Performed By: #### KEVIN Silva BCA, 61396-9 #### [facility] ([id number]) [address], [address] [place] [address] BASOPHILS RELATIVE PERCENT BY AUTOMATED COUNT 0.3 % Normal [facility] Comment on above: Performed By: #### KEVIN Silva BCA, 69808-7 #### [facility] ([id number]) [address], [address] [place] [address] CELLAVISION DIFFERENTIAL TYPE AUTOMATED DIFFERENTIAL Normal [facility] Comment on above: Performed By: #### Shira WOODALL PINR, 93604-5 #### [facility] ([id number]) [address], [address] [place] [address] Eosinophils (Bld) [#/Vol] 0.4 10*3/uL Normal 0.0-0.4 [facility] Comment on above: Performed By: #### C TALISHA, PINR, 30024-2 #### [facility] ([id number]) [address], [address] [place] [address] EOSINOPHILS RELATIVE PERCENT BY AUTOMATED COUNT 2.2 % Normal [facility] Comment on above: Performed By: #### C TALISHA, PINR, 42315-7 #### [facility] ([id number]) [address], [facility] [address] [place] [address] Erythrocyte distribution width (RBC) [Ratio] 14.5 % Normal 11.5-15 [facility] Comment on above: Performed By: #### C TALISHA, PINR, 54830-0 #### [facility] ([id number]) [address], [facility] [address] [place] [address] Hematocrit (Bld) [Volume fraction] 28.6 % Low 35-47 [facility] Comment on above: Performed By: #### Shira WOODALL, PINR, 93907-7 #### [facility] ([id number]) [address], [facility] [address] [place] [address] Hemoglobin (Bld) [Mass/Vol] 9.8 g/dL Low 11.7-15.5 [facility] Comment on above: Performed By: #### Shira WOODALL, PINR, 40750-2 #### [facility] ([id number]) [address], [facility] [address] [place] [address] LYMPHOCYTES ABSOLUTE COUNT (10*3/UL) BY AUTOMATED COUNT 1.8 10*3/uL Normal 1.0-3.5 [facility] Comment on above: Performed By: #### C TALISHA, PINR, 41955-4 #### [facility] ([id number]) [address], [facility] [address] [place] [address] LYMPHOCYTES RELATIVE PERCENT BY AUTOMATED COUNT 8.8 % Normal [facility] Comment on above: Performed By: #### C BCA, PINR, 59417-5 #### [facility] ([id number]) [address], [address] [place] [address] MCH (RBC) [Entitic mass] 31.1 pg Normal 27-34 [facility] Comment on above: Performed By: #### C TALISHA, PINR, 11307-4 #### [facility] ([id number]) [address] [place] [address] MCHC (RBC) [Mass/Vol] 34.2 g/dL Normal 32-36 [facility] Comment on above: Performed By: #### Shira WOODALL, PINR, 36683-8 #### [facility] ([id number]) [address] [place] [address] MCV (RBC) [Entitic vol] 91 fL Normal 80-100 [facility] [place] Comment on above: Performed By: #### Shira WOODALL, PINR, 97837-5 #### [facility] ([id number]) [address] [place] [address] MONOCYTES ABSOLUTE COUNT (10*3/UL) BY AUTOMATED COUNT 1.2 10*3/uL High 0.0-0.9 [facility] Comment on above: Performed By: #### Shira WOODALL, PINR, 77486-7 #### [facility] ([id number]) [address] [place] [address] MONOCYTES RELATIVE PERCENT BY AUTOMATED COUNT 6.1 % Normal [facility] Comment on above: Performed By: #### Shira WOODALL, PINR, 41072-7 #### [facility] ([id number]) [address] [place] [address] NEUTROPHILS ABSOLUTE COUNT BY AUTOMATED COUNT 16.8 10*3/uL High 1.5-6.6 [facility] Comment on above: Performed By: #### Shira WOODALL, PINR, 41719-9 #### [facility] ([id number]) [address], [address] [place] [address] NEUTROPHILS RELATIVE PERCENT BY AUTOMATED COUNT 82.6 % Normal [facility] Comment on above: Performed By: #### Shira WOODALL, PINR, [id number] #### [facility] ([id number]) [address], [address] [place] [address] Platelet mean volume (Bld) [Entitic vol] 8.1 fL Normal 7-12 [facility] Comment on above: Performed By: #### C TALISHA, PINR, [id number] #### [facility] ([id number]) [address], [facility] [address] [place] [address] Platelets (Bld) [#/Vol] 329 10*3/uL Normal 150-450 [facility] Comment on above: Performed By: #### Shira WOODALL, PINR, [id number] #### [facility] ([id number]) [address], [address] [place] [address] RBC COUNT 3.15 X10E12/L Low 3.8-5.2 [facility] Comment on above: Performed By: #### Shira WOODALL, PINR, [id number] #### [facility] ([id number]) [address], [address] [place] [address] WBC (Bld) [#/Vol] 20.3 10*3/uL High 4-11 [facility] Comment on above: Performed By: #### Shira WOODALL, PINR, [id number] #### [facility] ([id number]) [address], [address] [place] [address] COMPREHENSIVE METABOLIC PANE Brock 09-15-2024 Albumin [Mass/Vol] 3.1 g/dL Low 3.2-5.3 [facility] Comment on above: Performed By: #### Shira WOODALL, PINR, [id number] #### [facility] ([id number]) [address], [address] [place] [address] ALP [Catalytic activity/Vol] 76 U/L Normal 39-130 [facility] Comment on above: Performed By: #### C BCA, PINR, [id number] #### [facility] ([id number]) [address], [address] [place], [place] [address] ALT [Catalytic activity/Vol] 8 U/L Normal <=31 [facility] Comment on above: Performed By: #### C BCA, PINR, [id number] #### [facility] ([id number]) [address], [address] [place], [place] [address] Anion gap [Moles/Vol] 3 mmol/L Low 5-15 [facility] Comment on above: Performed By: #### C BCA, PINR, [id number] #### [facility] ([id number]) [address], [address] [place], [place] [address] AST [Catalytic activity/Vol] 12 U/L Normal <=41 [facility] Comment on above: Performed By: #### C BCA, PINR, 09589-9 #### [facility] ([id number]) [address], [address] [place], [place] [address] Bilirubin [Mass/Vol] 0.7 mg/dL Normal 0.3-1.2 [facility] Comment on above: Performed By: #### C BCA, PINR, 76921-2 #### [facility] ([id number]) [address], [address] [place], [place] [address] Calcium [Mass/Vol] 7.9 mg/dL Low 8.5-10.5 [facility] Comment on above: Performed By: #### C BCA, PINR, 06149-9 #### [facility] ([id number]) [address], [address] [place], [place] [address] Chloride [Moles/Vol] 104 mmol/L Normal 98-109 [facility] Comment on above: Performed By: #### C SURENDRA WOODALLR, 68942-8 #### [facility] ([id number]) [address] [address] [place] [address] CO2 [Moles/Vol] 34 mmol/L High 22-32 [facility] Comment on above: Performed By: #### C TALISHA PINR, 85780-6 #### [facility] ([id number]) [address] [address] [place] [address] Creatinine [Mass/Vol] 0.63 mg/dL Normal 0.40-1.00 [facility] Comment on above: Result Comment: METH OD TRACEABLE TO IDMS STANDARD Performed By: #### C SURENDRA WOODALLR, 39192-5 #### [facility] ([id number]) [address] [address] [place] [address] EGFR (CKD-EPI) NON-RACE DEPENDENT >^90 Normal >=60 [facility] Comment on above: Result Comment: Repo rted eGFR is based on the CKD-EPI 2020 equation that does not use a race coefficient. Performed By: #### C TALISHA PINR, 07567-8 #### [facility] ([id number]) [address] [address] [place] [address] Glucose [Mass/Vol] 116 mg/dL High 65-99 [facility] Comment on above: Performed By: #### C TALISHA PINR, 46220-0 #### [facility] ([id number]) [address] [address] [place] [address] Potassium [Moles/Vol] 3.6 mmol/L Normal 3.5-5.0 [facility] Comment on above: Performed By: #### C TALISHA PINR, 97356-1 #### [facility] ([id number]) [address] [address] [place] [address] Protein [Mass/Vol] 5.7 g/dL Low 6.0-8.0 [facility] Comment on above: Performed By: #### C TALISHA, PINR, 20190-6 #### [facility] ([id number]) [address], [address] [place] [address] Sodium [Moles/Vol] 141 mmol/L Normal 134-146 [facility] Comment on above: Performed By: #### C TALISHA, PINR, 10597-7 #### [facility] ([id number]) [address], [address] [place] [address] Urea nitrogen [Mass/Vol] 26 mg/dL Normal 5-27 [facility] Comment on above: Performed By: #### Shira WOODALL, PINR, 17723-8 #### [facility] ([id number]) [address], [address] [place] [address] IONIZED CALCIUMon 09-15-2024 IONIZED CALCIUM - ICAN 4.6 mg/dL Normal 4.5-5.3 Pr [facility] Comment on above: Performed By: #### Shira WOODALL, PINR, 29709-9 #### [facility] ([id number]) [address], [address] [place] [address] IONIZED CALCIUM - ICAN 4.4 mg/dL Low 4.5-5.3 Pr [facility] Comment on above: Performed By: #### C BCA, PINR, 24935-5 #### [facility] ([id number]) [address], [address] [place] [address] MAGNESIUMon 09-15-2024 Magnesium [Mass/Vol] 2.8 mg/dL High 1.8-2.6 [facility] Comment on above: Performed By: #### Shira WOODALL, PINR, 53305-5 #### [facility] ([id number]) [address], [address] [place] [address] PHOSPHORUSon 09-15-2024 Phosphate [Mass/Vol] 1.4 mg/dL Low 2.4-4.9 [facility] Comment on above: Performed By: #### SURENDRA Silva BCAR, 46970-6 #### [facility] ([id number]) [address], [address] [place] [address] POTASSIUMon 09-15-2024 Potassium [Moles/Vol] 3.8 mmol/L Normal 3.5-5.0 [facility] Comment on above: Performed By: #### Shira WOODALL PINR, 17354-8 #### [facility] ([id number]) [address], [address] [place] [address] Potassium [Moles/Vol] 3.8 mmol/L Normal 3.5-5.0 [facility] Comment on above: Performed By: #### Shira WOODALL PINR, 52514-5 #### [facility] ([id number]) [address], [address] [place] [address] KANG SCREEN W/ REFLEXon 09-14 KANG SCREEN W/REFLEX Negative Normal Negative [facility] Comment on above: Order Comment: Testi ng performed using multiplex flow immunoassay. Eleven difference antigens associated with systemic autoimmunie diseases (dsDNA, Sm, Sm/CISSP, CISSP, Chromatin, SSA, SSB, Niurka-1, Sc170, Ribo P, Centromere B) are included in this sreening tests. Performed By: #### Shira WOODALL PINR, 78726-9 #### [facility] ([id number]) [address], [address] [place] [address] ANTI-RAYMOND ANTIBODY IGGon ANTI-RAYMOND AB IGG <^0.2 Normal <1.0 [facility] Comment on above: Performed By: #### Shira WOODALL, PINR, 82519-5 #### [facility] ([id number]) [address], [address] [place] [address] CBC WITH AUTO DIFFERENTIALon 09-14-2024 BASOPHILS ABSOLUTE COUNT (10*3/UL) BY AUTOMATED COUNT 0.0 10*3/uL Normal 0.0-0.2 [facility] Comment on above: Performed By: #### C TALISHA, PINR, 35578-3 #### [facility] ([id number]) [address], [facility] [address] [place] [address] BASOPHILS RELATIVE PERCENT BY AUTOMATED COUNT 0.2 % Normal [facility] Comment on above: Performed By: #### C TALISHA, PINR, 27083-2 #### [facility] ([id number]) [address], [address] [address] CELLAVISION DIFFERENTIAL TYPE AUTOMATED DIFFERENTIAL Normal [facility] Comment on above: Performed By: #### Shira WOODALL, PINR, 45180-5 #### [facility] ([id number]) [address], [address] [address] Eosinophils (Bld) [#/Vol] 0.1 10*3/uL Normal 0.0-0.4 [facility] Comment on above: Performed By: #### Shira WOODALL, PINR, 39182-4 #### [facility] ([id number]) [address] [address] EOSINOPHILS RELATIVE PERCENT BY AUTOMATED COUNT 0.6 % Normal [facility] Comment on above: Performed By: #### Shira WOODALL, PINR, 13100-5 #### [facility] ([id number]) [address] [address] [place] [address] Erythrocyte distribution width (RBC) [Ratio] 14.9 % Normal 11.5-15 [facility] Comment on above: Performed By: #### Shira WOODALL, PINR, 44631-8 #### [facility] ([id number]) [address], [facility] [address] [place] [address] Hematocrit (Bld) [Volume fraction] 29.7 % Low 35-47 [facility] Comment on above: Performed By: #### KEVIN Silva BCA, 18468-6 #### [facility] ([id number]) [address], [facility] [address] [place] [address] Hemoglobin (Bld) [Mass/Vol] 10.3 g/dL Low 11.7-15.5 [facility] Comment on above: Performed By: #### KEVIN Silva BCA, 75031-7 #### [facility] ([id number]) [address], [facility] [address] [place] [address] LYMPHOCYTES ABSOLUTE COUNT (10*3/UL) BY AUTOMATED COUNT 1.2 10*3/uL Normal 1.0-3.5 [facility] Comment on above: Performed By: #### KEVIN Silva BCA, 61023-4 #### [facility] ([id number]) [address], [facility] [address] [place] [address] LYMPHOCYTES RELATIVE PERCENT BY AUTOMATED COUNT 5.5 % Normal [facility] Comment on above: Performed By: #### KEVIN Silva BCA, 88047-7 #### [facility] ([id number]) [address], [facility] [address] [place] [address] MCH (RBC) [Entitic mass] 31.0 pg Normal 27-34 [facility] Comment on above: Performed By: #### KEVIN Silva BCA, 24915-4 #### [facility] ([id number]) [address], [facility] [address] [place] [address] MCHC (RBC) [Mass/Vol] 34.6 g/dL Normal 32-36 [facility] Comment on above: Performed By: #### SURENDRA Silva BCAR, 65899-2 #### [facility] ([id number]) [address], [facility] [address] [place] [address] MCV (RBC) [Entitic vol] 90 fL Normal 80-100 [facility] Comment on above: Performed By: #### C BCA, PINR, 77887-5 #### [facility] ([id number]) [address], [address] [place] [address] MONOCYTES ABSOLUTE COUNT (10*3/UL) BY AUTOMATED COUNT 1.2 10*3/uL High 0.0-0.9 [facility] Comment on above: Performed By: #### C TALISHA, PINR, 34908-2 #### [facility] ([id number]) [address], [address] [place] [address] MONOCYTES RELATIVE PERCENT BY AUTOMATED COUNT 5.4 % Normal [facility] Comment on above: Performed By: #### C TALISHA, PINR, 71675-9 #### [facility] ([id number]) [address], [address] [place] [address] NEUTROPHILS ABSOLUTE COUNT BY AUTOMATED COUNT 19.7 10*3/uL High 1.5-6.6 [facility] Comment on above: Performed By: #### Shira WOODALL, PINR, 31343-1 #### [facility] ([id number]) [address], [address] [place] [address] NEUTROPHILS RELATIVE PERCENT BY AUTOMATED COUNT 88.3 % Normal [facility] Comment on above: Performed By: #### Shira WOODALL, PINR, 63720-8 #### [facility] ([id number]) [address], [address] [place] [address] Platelet mean volume (Bld) [Entitic vol] 8.2 fL Normal 7-12 [facility] Comment on above: Performed By: #### C TALISHA, PINR, 03094-8 #### [facility] ([id number]) [address], [address] [place] [address] Platelets (Bld) [#/Vol] 283 10*3/uL Normal 150-450 [facility] Comment on above: Performed By: #### C BCA, PINR, 42416-8 #### [facility] ([id number]) [address], [address] [place] [address] RBC COUNT 3.32 X10E12/L Low 3.8-5.2 [facility] Comment on above: Performed By: #### C BCA, PINR, 31734-4 #### [facility] ([id number]) [address], [address] [address] WBC (Bld) [#/Vol] 22.3 10*3/uL High 4-11 [facility] Comment on above: Performed By: #### C TALISHA, PINR, 45109-6 #### [facility] ([id number]) [address], [address] [address] COMPLEMENT PROFILE (C3 AND C 4)on 09-14-2024 COMPLEMENT C3 102 mg/dL Normal 86-184 [facility] Comment on above: Performed By: #### C BCA, PINR, 71741-8 #### [facility] ([id number]) [address], [address] [address] COMPLEMENT C4 20 mg/dL Normal 16-47 [facility] Comment on above: Performed By: #### C BCA, PINR, 69352-0 #### [facility] ([id number]) [address], [address] [place] [address] COMPREHENSIVE METABOLIC PANE Brock 09-14-2024 Albumin [Mass/Vol] 3.1 g/dL Low 3.2-5.3 [facility] Comment on above: Performed By: #### C BCA, PINR, 17591-8 #### [facility] ([id number]) [address], [address] [place] [address] ALP [Catalytic activity/Vol] 72 U/L Normal 39-130 [facility] Comment on above: Performed By: #### C BCA, PINR, 35823-9 #### [facility] ([id number]) [address] [place] [address] ALT [Catalytic activity/Vol] 8 U/L Normal <=31 [facility] Comment on above: Performed By: #### C BCA, PINR, 30844-8 #### [facility] ([id number]) [address] [place] [address] Anion gap [Moles/Vol] 10 mmol/L Normal 5-15 [facility] Comment on above: Performed By: #### C BCA, PINR, 35389-9 #### [facility] ([id number]) [address] [place] [address] AST [Catalytic activity/Vol] 14 U/L Normal <=41 [facility] Comment on above: Performed By: #### C BCA, PINR, 52611-3 #### [facility] ([id number]) [address], [address] [place] [address] Bilirubin [Mass/Vol] 0.5 mg/dL Normal 0.3-1.2 [facility] Comment on above: Performed By: #### C BCA, PINR, 94687-0 #### [facility] ([id number]) [address] [place] [address] Calcium [Mass/Vol] 6.9 mg/dL Critically low 8.5-10.5 [facility] Comment on above: Performed By: #### C BCA, PINR, 08256-9 #### [facility] ([id number]) [address], [address] [place] [address] Chloride [Moles/Vol] 95 mmol/L Low 98-109 [facility] Comment on above: Performed By: #### C BCA, PINR, 83438-5 #### [facility] ([id number]) [address], [address] [place] [address] CO2 [Moles/Vol] 32 mmol/L Normal 22-32 [facility] Comment on above: Performed By: #### C KEVIN WOODALL, 67107-4 #### [facility] ([id number]) [address], [address] [place] [address] Creatinine [Mass/Vol] 1.15 mg/dL High 0.40-1.00 [facility] Comment on above: Result Comment: METH OD TRACEABLE TO IDMS STANDARD Performed By: #### C KEVIN WOODALL, 57985-4 #### [facility] ([id number]) [address], [address] [place] [address] GFR/1.73 sq M.predicted among non-blacks MDRD (S/P/Bld) [Vol rate/Area] 54 mL/min/{1.73_m2} Low >=60 [facility] Comment on above: Result Comment: Repo rted eGFR is based on the CKD-EPI 2020 equation that does not use a race coefficient. Performed By: #### C KEVIN WOODALL, 81006-2 #### [facility] ([id number]) [address], [address] [place] [address] Glucose [Mass/Vol] 161 mg/dL High 65-99 [facility] Comment on above: Performed By: #### C KEVIN WOODALL, 58863-2 #### [facility] ([id number]) [address], [address] [place] [address] Potassium [Moles/Vol] 2.8 mmol/L Low 3.5-5.0 [facility] Comment on above: Performed By: #### KEVIN Silva BCA, 42431-1 #### [facility] ([id number]) [address], [address] [place] [address] Protein [Mass/Vol] 5.7 g/dL Low 6.0-8.0 [facility] Comment on above: Performed By: #### C BCA, PINR, 09302-3 #### [facility] ([id number]) [address], [address] [place] [address] Sodium [Moles/Vol] 137 mmol/L Normal 134-146 [facility] Comment on above: Performed By: #### C BCA, PINR, 85251-7 #### [facility] ([id number]) [address], [address] [place] [address] Urea nitrogen [Mass/Vol] 79 mg/dL High 5-27 [facility] Comment on above: Performed By: #### C BCA, PINR, 13792-3 #### [facility] ([id number]) [address], [address] [place] [address] CYTOPLASMIC NEUTROPHILIC AB (ANCA), Son 09-14-2024 C-ANCA Negative Normal Negative [facility] Comment on above: Performed By: #### C BCA, PINR, 13795-4 #### [facility] ([id number]) [address], [address] [place] [address] P-ANCA Negative Normal Negative [facility] Comment on above: Result Comment: Nega tive for cANCA and pANCA patterns by immunofluorescence. ADDITIONAL INFORMATION This test was developed and its performance characteristics determined by [facility] in a manner consistent with CLIA requirements. This test has not been cleared or approved by the U.S. Food and Drug Administration. Test Performed by: [facility] [address] [place] [address] Pulp And Paper Tester: Ester Macdonald Ph.D.; CLIA# [id number] Performed By: #### C BCA, PINR, 63776-1 #### [facility] ([id number]) [address], [address] [place] [address] GLOMERULAR BASEMENT MEMBRANE IGG ABon 09-14-2024 GBM IGG AB <^0.2 Normal <1.0 [facility] Comment on above: Performed By: #### C TALISHA, PINR, 90950-4 #### [facility] ([id number]) [address], [address] [place] [address] HEPATITIS B SURFACE ANTIBODY QUANTITATIONon 09-14-2024 ANTI HBS QUANT. <^3.0 Normal [facility] Comment on above: Order Comment: Vacci nated: >=10 mIU/mL, Positive (Immune)Unvaccinated: <10 mIU/mL, Negative (Not Immune) Performed By: #### C TALISHA, PINR, 28566-7 #### [facility] ([id number]) [address], [address] [address] HEPATITIS B SURFACE ANTIGENo n 09-14-2024 HEPATITIS B SURF AG Non-Reactive Normal Non-Reactive [facility] Comment on above: Performed By: #### Shira WOODALL, PINR, 11251-9 #### [facility] ([id number]) [address], [address] [address] HEPATITIS C(HCV) ANTIBODY W/ REFLEX TO PCRon 09-14-2024 ANTI HCV W/PCR REFLX Non-Reactive Normal Non-Reactive [facility] Comment on above: Result Comment: If r ecent infection suspected, recommend repeat testing (>2 months). Mdbibk-nh-gjstbo ratio is <1.0. Performed By: #### C TALISHA, PINR, 14139-8 #### [facility] ([id number]) [address], [address] [address] IONIZED CALCIUMon 09-14-2024 IONIZED CALCIUM - ICAN 3.9 mg/dL Low 4.5-5.3 Pr [facility] Comment on above: Performed By: #### Shira WOODALL, PINR, 19591-4 #### [facility] ([id number]) [address], [address] [place] [address] IONIZED CALCIUM - ICAN 3.8 mg/dL Low 4.5-5.3 [facility] Comment on above: Performed By: #### C TALISHA PINR, 01856-6 #### [facility] ([id number]) [address], [address] [place] [address] MAGNESIUMon 09-14-2024 Magnesium [Mass/Vol] 2.8 mg/dL High 1.8-2.6 [facility] Comment on above: Performed By: #### C KEVIN WOODALL, 42972-5 #### [facility] ([id number]) [address], [address] [place] [address] MYELOPEROXIDASE ABon 025 MYELOPEROXIDASE AB <^0.2 Normal <1.0 [facility] Comment on above: Performed By: #### C SURENDRA WOODALLR, 85455-2 #### [facility] ([id number]) [address], [address] [place] [address] PHOSPHORUSon 09-14-2024 Phosphate [Mass/Vol] 3.1 mg/dL Normal 2.4-4.9 [facility] Comment on above: Performed By: #### C TALISHA PINR, 79641-5 #### [facility] ([id number]) [address], [address] [place] [address] POTASSIUMon 09-14-2024 Potassium [Moles/Vol] 3.5 mmol/L Normal 3.5-5.0 [facility] Comment on above: Performed By: #### C TALISHA PINR, 01561-6 #### [facility] ([id number]) [address], [address] [place] [address] PROTEIN ELECTROPHORESIS, SER UMon 09-14-2024 Albumin [Mass/Vol] 2.5 g/dL Low 3.4-5.3 [facility] Comment on above: Performed By: #### C BCA, PINR, 49176-0 #### [facility] ([id number]) [address], [address] [place] [address] ALPHA 1 GLOBULIN 0.5 g/dL High 0.1-0.4 [facility] Comment on above: Performed By: #### C BCA, PINR, 90525-2 #### [facility] ([id number]) [address] [place] [address] ALPHA 2 GLOBULIN 0.9 g/dL Normal 0.4-1.1 [facility] Comment on above: Performed By: #### C TALISHA, PINR, 59521-0 #### [facility] ([id number]) [address], [address] [place] [address] BETA GLOBULIN 0.6 g/dL Normal 0.5-1.2 [facility] Comment on above: Performed By: #### C BCA, PINR, 07805-3 #### [facility] ([id number]) [address], [address] [place] [address] GAMMA GLOBULIN 0.6 g/dL Normal 0.5-1.6 [facility] Comment on above: Performed By: #### C BCA, PINR, 22962-9 #### [facility] ([id number]) [address], [address] [place] [address] Protein [Mass/Vol] 5.1 g/dL Low 6.0-8.0 [facility] Comment on above: Performed By: #### C BCA, PINR, 14622-0 #### [facility] ([id number]) [address], [address] [place] [address] PROTEIN ELECTROPHORESIS INTERP See Pathology Report Normal [facility] Comment on above: Performed By: #### C BCA, PINR, 69950-7 #### [facility] ([id number]) [address], [address] [place] [address] PROTEINASE 3 AB PR3on 2024 PROTEINASE 3 IGG AB <^0.2 Normal <1.0 [facility] Comment on above: Performed By: #### Shira WOODALL, PINR, 13245-6 #### [facility] ([id number]) [address], [address] [place] [address] RHEUMATOID FACTORon 09-15-19 25 RHEUMATOID FACTOR 14 IU/mL Normal <20 [facility] Comment on above: Performed By: #### Shira WOODALL, PINR, 45357-3 #### [facility] ([id number]) [address], [address] [place] [address] XR ABDOMEN AP 1 VWon 025 XR [...] Jeffrey MD on 09/14/2024 11:53 AM Normal [facility] CBC WITH AUTO DIFFERENTIALon 09-13-2024 Band form neutrophils/100 WBC (Bld) 13 % Normal [facility] Comment on above: Result Comment: This is an appended report. These results have been appended to a previously preliminary verified report. Performed By: #### Shira WOODALL, PINR, [id number] #### [facility] ([id number]) [address], [address] [place] [address] CELLAVISION ACANTHOCYTES IN BLOOD BY LIGHT MICROSCOPY 1+ Normal [facility] Comment on above: Result Comment: This is an appended report. These results have been appended to a previously preliminary verified report. Performed By: #### Shira WOODALL, PINR, [id number] #### [facility] ([id number]) [address], [address] [place] [address] CELLAVISION JASVIR CELLS IN BLOOD BY LIGHT MICROSCOPY 1+ Normal [facility] Comment on above: Result Comment: This is an appended report. These results have been appended to a previously preliminary verified report. Performed By: #### C TALISHA, PINR, [id number] #### [facility] ([id number]) [address], [address] [place] [address] CELLAVISION DIFFERENTIAL TYPE MANUAL DIFFERENTIAL Normal [facility] Comment on above: Result Comment: This is an appended report. These results have been appended to a previously preliminary verified report. Performed By: #### C TALISHA, PINR, [id number] #### [facility] ([id number]) [address], [address] [place] [address] CELLAVISION ELLIPTOCYTES IN BLOOD BY LIGHT MICROSCOPY 1+ Normal [facility] Comment on above: Result Comment: This is an appended report. These results have been appended to a previously preliminary verified report. Performed By: #### C TALISHA, PINR, [id number] #### [facility] ([id number]) [address], [address] [place] [address] CELLAVISION LYMPHOCYTES ABSOLUTE COUNT (10*3/UL) BY MANUAL COUNT 0.3 10*3/uL Low 1.0-3.5 [facility] Comment on above: Result Comment: This is an appended report. These results have been appended to a previously preliminary verified report. Performed By: #### C BCA, PINR, 80039-8 #### [facility] ([id number]) [address], [address] [place] [address] CELLAVISION LYMPHOCYTES RELATIVE PERCENT BY MANUAL COUNT 1 % Normal [facility] Comment on above: Result Comment: This is an appended report. These results have been appended to a previously preliminary verified report. Performed By: #### C TALISHA, PINR, 95113-7 #### [facility] ([id number]) [address], [address] [place] [address] CELLAVISION MONOCYTES ABSOLUTE COUNT (10*3/UL) IN BLOOD BY MANUAL COUNT 1.3 10*3/uL High 0.0-0.9 [facility] Comment on above: Result Comment: This is an appended report. These results have been appended to a previously preliminary verified report. Performed By: #### Shira WOODALL, PINR, [id number] #### [facility] ([id number]) [address], [address] [place], [place] [address] CELLAVISION MONOCYTES RELATIVE PERCENT BY MANUAL COUNT 4 % Normal [facility] Comment on above: Result Comment: This is an appended report. These results have been appended to a previously preliminary verified report. Performed By: #### Shira WOODALL, PINR, 30387-7 #### [facility] ([id number]) [address], [address] [place] [address] CELLAVISION NEUTROPHILS ABSOLUTE COUNT BY MANUAL COUNT 29.9 10*3/uL High 1.5-6.6 [facility] Comment on above: Result Comment: This is an appended report. These results have been appended to a previously preliminary verified report. Performed By: #### Shira WOODALL, PINR, 04478-0 #### [facility] ([id number]) [address], [address] [place] [address] CELLAVISION NEUTROPHILS RELATIVE PERCENT BY MANUAL COUNT 82 % Normal [facility] Comment on above: Result Comment: This is an appended report. These results have been appended to a previously preliminary verified report. Performed By: #### Shira WOODALL, PINR, [id number] #### [facility] ([id number]) [address], [address] [place] [address] CELLAVISION TOXIC GRANULES IN BLOOD BY LIGHT MICROSCOPY 2+ Normal [facility] Comment on above: Result Comment: This is an appended report. These results have been appended to a previously preliminary verified report. Performed By: #### Shira WOODALL PINR, 30081-1 #### [facility] ([id number]) [address], [address] [place], [place] [address] CELLAVISION VACUOLATED NEUTROPHILS 1+ Normal [facility] Comment on above: Result Comment: This is an appended report. These results have been appended to a previously preliminary verified report. Performed By: #### Shira WOODALL PINR, 88221-4 #### [facility] ([id number]) [address], [address] [place] [address] Erythrocyte distribution width (RBC) [Ratio] 14.9 % Normal 11.5-15 [facility] Comment on above: Performed By: #### Shira WOODALL PINR, 69729-7 #### [facility] ([id number]) [address], [address] [place] [address] Hematocrit (Bld) [Volume fraction] 37.0 % Normal 35-47 [facility] Comment on above: Performed By: #### Shira WOODALL PINR, 15002-1 #### [facility] ([id number]) [address], [address] [place] [address] Hemoglobin (Bld) [Mass/Vol] 12.8 g/dL Normal 11.7-15.5 [facility] Comment on above: Performed By: #### Shira WOODALL PINR, 43815-9 #### [facility] ([id number]) [address], [address] [place] [address] MCH (RBC) [Entitic mass] 31.9 pg Normal 27-34 [facility] Comment on above: Performed By: #### Shira WOODALL, PINR, 99433-3 #### [facility] ([id number]) [address], [address] [place] [address] MCHC (RBC) [Mass/Vol] 34.5 g/dL Normal 32-36 [facility] Comment on above: Performed By: #### Shira WOODALL, PINR, 72753-0 #### [facility] ([id number]) [address], [address] [place] [address] MCV (RBC) [Entitic vol] 92 fL Normal 80-100 [facility] Comment on above: Performed By: #### Shira WOODALL, PINR, 95933-7 #### [facility] ([id number]) [address], [address] [place] [address] Platelet mean volume (Bld) [Entitic vol] 8.2 fL Normal 7-12 [facility] Comment on above: Performed By: #### Shira WOODALL, PINR, 68576-0 #### [facility] ([id number]) [address], [address] [place] [address] Platelets (Bld) [#/Vol] 342 10*3/uL Normal 150-450 [facility] Comment on above: Performed By: #### Shira WOODALL, PINR, 41589-8 #### [facility] ([id number]) [address], [address] [place] [address] RBC COUNT 4.01 X10E12/L Normal 3.8-5.2 [facility] Comment on above: Performed By: #### Shira WOODALL, PINR, 89747-3 #### [facility] ([id number]) [address], [address] [place] [address] WBC (Bld) [#/Vol] 31.5 10*3/uL High 4-11 [facility] Comment on above: Performed By: #### Shira WOODALL, PINR, 90809-8 #### [facility] ([id number]) [address], [address] [place] [address] COMPREHENSIVE METABOLIC PANE Brock 09-13-2024 Albumin [Mass/Vol] 3.8 g/dL Normal 3.2-5.3 [facility] Comment on above: Performed By: #### C BCA, PINR, 47912-9 #### [facility] ([id number]) [address], [address] [place] [address] ALP [Catalytic activity/Vol] 84 U/L Normal 39-130 [facility] Comment on above: Performed By: #### C BCA, PINR, 45988-2 #### [facility] ([id number]) [address], [address] [place] [address] ALT [Catalytic activity/Vol] 10 U/L Normal <=31 [facility] Comment on above: Performed By: #### C TALISHA, PINR, 14689-0 #### [facility] ([id number]) [address], [address] [place] [address] Anion gap [Moles/Vol] 15 mmol/L Normal 5-15 [facility] Comment on above: Performed By: #### C BCA, PINR, 98476-7 #### [facility] ([id number]) [address], [address] [place] [address] AST [Catalytic activity/Vol] 15 U/L Normal <=41 [facility] Comment on above: Performed By: #### C BCA, PINR, 54659-5 #### [facility] ([id number]) [address], [address] [place] [address] Bilirubin [Mass/Vol] 0.2 mg/dL Low 0.3-1.2 [facility] Comment on above: Performed By: #### C BCA, PINR, 39786-4 #### [facility] ([id number]) [address], [address] [place] [address] Calcium [Mass/Vol] 7.2 mg/dL Low 8.5-10.5 [facility] Comment on above: Performed By: #### C BCA, PINR, 72347-3 #### [facility] ([id number]) [address], [address] [place] [address] Chloride [Moles/Vol] 103 mmol/L Normal 98-109 [facility] Comment on above: Performed By: #### C BCA, PINR, 73008-3 #### [facility] ([id number]) [address], [address] [place] [address] CO2 [Moles/Vol] 12 mmol/L Low 22-32 [facility] Comment on above: Performed By: #### C BCA, PINR, 56088-2 #### [facility] ([id number]) [address], [address] [place] [address] Creatinine [Mass/Vol] 2.30 mg/dL High 0.40-1.00 [facility] Comment on above: Result Comment: METH OD TRACEABLE TO IDMS STANDARD Performed By: #### C TALISHA, PINR, 03594-6 #### [facility] ([id number]) [address], [address] [place] [address] GFR/1.73 sq M.predicted among non-blacks MDRD (S/P/Bld) [Vol rate/Area] 24 mL/min/{1.73_m2} Low >=60 [facility] Comment on above: Result Comment: Repo rted eGFR is based on the CKD-EPI 2020 equation that does not use a race coefficient. Performed By: #### C BCA, PINR, 17181-6 #### [facility] ([id number]) [address], [address] [place] [address] Glucose [Mass/Vol] 188 mg/dL High 65-99 [facility] Comment on above: Performed By: #### C BCA, PINR, 62826-3 #### [facility] ([id number]) [address], [address] [place] [address] Potassium [Moles/Vol] 4.3 mmol/L Normal 3.5-5.0 [facility] Comment on above: Performed By: #### C TALISHA, PINR, 22095-3 #### [facility] ([id number]) [address], [address] [place] [address] Protein [Mass/Vol] 7.1 g/dL Normal 6.0-8.0 [facility] Comment on above: Performed By: #### C TALISHA, PINR, 81965-8 #### [facility] ([id number]) [address], [address] [place] [address] Sodium [Moles/Vol] 130 mmol/L Low 134-146 [facility] Comment on above: Performed By: #### Shira WOODALL, PINR, 77784-8 #### [facility] ([id number]) [address], [address] [place] [address] Urea nitrogen [Mass/Vol] 105 mg/dL High 5-27 [facility] Comment on above: Performed By: #### C TALISHA, PINR, 18868-6 #### [facility] ([id number]) [address], [address] [place] [address] DRUG SCREEN, URINEon 025 AMPHETAMINE/METHAMP Negative Normal Negative [facility] Comment on above: Result Comment: AMPH /METH screening cut off = 1000 ng/mL Performed By: #### C TALISHA, PINR, 20313-2 #### [facility] ([id number]) [address], [address] [place] [address] BARBITURATES Negative Normal Negative [facility] Comment on above: Result Comment: Brittni iturates screening cut off value = 200 ng/mL Performed By: #### C BCA, PINR, 97814-5 #### [facility] ([id number]) [address], [address] [place] [address] BENZODIAZEPINES Negative Normal Negative [facility] Comment on above: Result Comment: Hernán odiazepines screening cut off value = 200 ng/mL Performed By: #### C TALISHA, PINR, 67392-0 #### [facility] ([id number]) [address], [address] [place] [address] CANNABINOIDS Negative Normal Negative [facility] Comment on above: Result Comment: Misha abinoids/THC screening cut off value = 50 ng/mL Performed By: #### C TALISHA, PINR, 14897-8 #### [facility] ([id number]) [address], [address] [place] [address] COCAINE METABOLITE Negative Normal Negative [facility] Comment on above: Result Comment: Coca ine screening cut off value = 300 ng/mL Performed By: #### C TALISHA, PINR, 75295-7 #### [facility] ([id number]) [address], [address] [place] [address] ECSTASY Negative Normal Negative [facility] Comment on above: Result Comment: Ecst asy screening cut off value = 500 ng/mL Performed By: #### C TALISHA, PINR, 42145-1 #### [facility] ([id number]) [address], [address] [place] [address] METHADONE Negative Normal Negative [facility] Comment on above: Result Comment: Meth adone screening cut off value = 300 ng/mL. Performed By: #### C TALISHA, PINR, 03350-0 #### [facility] ([id number]) [address], [address] [place] [address] OPIATES Negative Normal Negative [facility] Comment on above: Result Comment: Opia radha screening cut off value = 300 ng/mL This test is used for the detection of codeine, hydrocodone (>1000 ng/mL), morphine and hydromorphone (>900 ng/mL) in urine. Performed By: #### C TALISHA, PINR, 04144-9 #### [facility] ([id number]) [address], [address] [place] [address] OXYCODONE Negative Normal Negative [facility] Comment on above: Result Comment: Oxyc odone screening cut off value = 300 ng/mL This test is used for the detection of oxycodone and oxymorphone in urine. Performed By: #### C KEVIN WOODALL, 20737-4 #### [facility] ([id number]) [address], [address] [place] [address] PHENCYCLIDINE Negative Normal Negative [facility] Comment on above: Result Comment: Phen cyclidine screening cut off value = 25 ng/mL Performed By: #### C KEVIN WOODALL, 13075-9 #### [facility] ([id number]) [address], [address] [place] [address] [place] SWALLOW MOTILITY FUNCTION on 09-13-2024 FL [...] Harris MD on 09/13/2024 12:24 PM Normal [facility] IONIZED CALCIUMon 09-13-2024 IONIZED CALCIUM - ICAN 3.9 mg/dL Low 4.5-5.3 [facility] Comment on above: Performed By: #### C KEVIN WOODALL, 22057-2 #### [facility] ([id number]) [address], [address] [place] [address] IONIZED CALCIUM - ICAN 3.9 mg/dL Low 4.5-5.3 Pr [facility] Comment on above: Performed By: #### C TALISHA, PINR, 70003-7 #### [facility] ([id number]) [address], [address] [place] [address] MAGNESIUMon 09-13-2024 Magnesium [Mass/Vol] 3.1 mg/dL High 1.8-2.6 [facility] Comment on above: Performed By: #### C TALISHA, PINR, 56670-3 #### [facility] ([id number]) [address], [address] [place] [address] MICROALBUMIN / CREATININE UR INE RATIOon 09-13-2024 Albumin DL <= 20 mg/L (U) [Mass/Vol] 2.3 mg/dL High 0.0-1.9 [facility] Comment on above: Performed By: #### C TALISHA, PINR, 61191-3 #### [facility] ([id number]) [address], [address] [place] [address] MALB/CREAT RATIO 35.1 mg/g High 0.0-30.0 [facility] Comment on above: Performed By: #### C TALISHA, PINR, 33403-3 #### [facility] ([id number]) [address], [address] [place] [address] URINE CREATININE,RDM 65.47 mg/dL Normal [facility] Comment on above: Performed By: #### C BCA, PINR, 45556-7 #### [facility] ([id number]) [address], [address] [place] [address] OSMOLALITY, URINEon 09-14-19 25 URINE OSMOLALITY 389 mOsm/kg H2 Normal 300-1300 [facility] Comment on above: Performed By: #### C TALISHA, PINR, 31060-7 #### [facility] ([id number]) [address], [address] [place] [address] PROCALCITONINon 09-13-2024 PROCALCITONIN 3.40 ng/mL High <0.05 [facility] Comment on above: Order Comment: <0.50 ng/mL - Low risk of severe sepsis and/or septic shock.<2.00 ng/mL - Recommend retesting within 6-24 hours.>2.00 ng/mL - High risk of sepsis and/or septic shock. Performed By: #### Shira WOODALL PINR, 78471-1 #### [facility] ([id number]) [address], [address] [place] [address] SODIUMon 09-13-2024 Sodium [Moles/Vol] 133 mmol/L Low 134-146 [facility] Comment on above: Performed By: #### Shira WOODALL PINR, 59327-8 #### [facility] ([id number]) [address], [address] [place] [address] Sodium [Moles/Vol] 133 mmol/L Low 134-146 [facility] Comment on above: Performed By: #### Shira WOODALL PINR, 45612-5 #### [facility] ([id number]) [address], [address] [place] [address] Sodium [Moles/Vol] 132 mmol/L Low 134-146 [facility] Comment on above: Performed By: #### Shira WOODALL PINR, 57589-0 #### [facility] ([id number]) [address], [address] [place] [address] SODIUM, URINE, RANDOMon 08-0 Sodium (U) [Moles/Vol] 22 mmol/L Normal [facility] Comment on above: Performed By: #### Shira WOODALL PINR, 72628-3 #### [facility] ([id number]) [address], [address] [place] [address] URINE CREATININE,RANDOMon URINE CREATININE,RDM 51.96 mg/dL Normal [facility] Comment on above: Performed By: #### C BCA, PINR, 24400-4 #### [facility] ([id number]) [address], [address] [place] [address] BASIC METABOLIC PANELon 07-3 Anion gap [Moles/Vol] 15 mmol/L Normal 5-15 [facility] Comment on above: Performed By: #### C BCA, PINR, 81391-7 #### [facility] ([id number]) [address], [address] [place] [address] Calcium [Mass/Vol] 7.5 mg/dL Low 8.5-10.5 [facility] Comment on above: Performed By: #### C BCA, PINR, 50503-2 #### [facility] ([id number]) [address], [address] [place] [address] Chloride [Moles/Vol] 102 mmol/L Normal 98-109 [facility] Comment on above: Performed By: #### C BCA, PINR, 28967-5 #### [facility] ([id number]) [address], [address] [place] [address] CO2 [Moles/Vol] 10 mmol/L Low 22-32 [facility] Comment on above: Performed By: #### C BCA, PINR, 49015-7 #### [facility] ([id number]) [address], [address] [place] [address] Creatinine [Mass/Vol] 2.69 mg/dL High 0.40-1.00 [facility] Comment on above: Result Comment: METH OD TRACEABLE TO IDMS STANDARD Performed By: #### C BCA, PINR, 28360-7 #### [facility] ([id number]) [address], [address] [place] [address] GFR/1.73 sq M.predicted among non-blacks MDRD (S/P/Bld) [Vol rate/Area] 20 mL/min/{1.73_m2} Low >=60 [facility] Comment on above: Result Comment: Repo rted eGFR is based on the CKD-EPI 2020 equation that does not use a race coefficient. Performed By: #### C KEVIN WOODALL, 84498-0 #### [facility] ([id number]) [address], [address] [place] [address] Glucose [Mass/Vol] 127 mg/dL High 65-99 [facility] Comment on above: Performed By: #### C SURENDRA WOODALLR, 73636-2 #### [facility] ([id number]) [address], [address] [place] [address] Potassium [Moles/Vol] 4.9 mmol/L Normal 3.5-5.0 [facility] Comment on above: Performed By: #### SURENDRA Silva BCAR, 44113-7 #### [facility] ([id number]) [address], [address] [place] [address] Sodium [Moles/Vol] 127 mmol/L Low 134-146 [facility] Comment on above: Performed By: #### Shiar WOODALL PINR, 05902-9 #### [facility] ([id number]) [address], [address] [place] [address] Urea nitrogen [Mass/Vol] 107 mg/dL High 5-27 [facility] Comment on above: Performed By: #### Shira WOODALL PINR, 28469-3 #### [facility] ([id number]) [address], [address] [place] [address] BLOOD CULTUREon 09-12-2024 Bacteria identified Cx Nom (Bld) CULTURE RESULTS NO GROWTH 5 DAYS Normal [facility] Comment on above: Order Comment: *SIRS Criteria: (must display 2 without other explanation)-Temperature < 36 or >38-Pulse >90-Resp rate >20-WBC less than 4K or greater than 12KRepeat blood cultures not needed:-To document that a blood culture is a contaminant when 1 of 2 bottles is positive for a common contaminant (already listed in [facility] with the culture result)-To document clearance of gram negative bacteremia in patients with suspected urinary source who are improvingSuboptimal volume of blood collected, Results may be affected. Performed By: #### C BCA, HA1C, CMP, TSHR, 2131-, 6-4, FEPR, 4-8, 48498-9 #### [facility] ([id number]) [address] [place] [address], [address] [place] [address] #### 17406-2 #### [facility] ([id number]) [address] [place] [address] Order Comment: *SIRS Criteria: (must display 2 without other explanation)-Temperature < 36 or >38-Pulse >90-Resp rate >20-WBC less than 4K or greater than 12KRepeat blood cultures not needed:-To document that a blood culture is a contaminant when 1 of 2 bottles is positive for a common contaminant (already listed in [facility] with the culture result)-To document clearance of gram negative bacteremia in patients with suspected urinary source who are improvingSuboptimal volume of blood collected, Results may be affected.Only aerobic bottle received, suboptimal volume of blood collected, results may be affected. BLOOD GAS, ARTERIALon 2024 BASE,DEFICIT -22.0 mmol/L Low 0.0-2.0 [facility] Comment on above: Performed By: #### C BCA, HA1C, CMP, TSHR, 2131-10, 2275-4, FEPR, 4-8, 61176-4 #### [facility] ([id number]) [address] [place] [address], [address] [place] [address] #### 31446-4 #### [facility] ([id number]) [address] [place] [address] HCO3 (Bld) [Moles/Vol] 6.1 mmol/L Low 22.0-26.0 [facility] Comment on above: Performed By: #### C BCA, HA1C, CMP, TSHR, 2131-10, 2275-4, FEPR, 2283-8, 85534-2 #### [facility] ([id number]) [address], [address] [place] [address] #### 18014-5 #### [facility] ([id number]) [address] [place] [address] INSP. O2 CONC. 21 % Normal [facility] Comment on above: Performed By: #### C BCA, HA1C, CMP, TSHR, 2131-10, 2275-, FEPR, 2283-, 35000-5 #### [facility] ([id number]) [address] [facility], [address] [place] [address] #### 68195-2 #### [facility] ([id number]) [address] [place] [address] Oxygen saturation in Blood 97.0 % Normal >90.0 [facility] Comment on above: Performed By: #### C BCA, HA1C, CMP, TSHR, 2131-10, 2275-05, FEPR, 2283-09, 56422-5 #### [facility] ([id number]) [address], [address] [place] [address] #### 28928-2 #### [facility] ([id number]) [address] [place] [address] PCO2 ARTERIAL 20.2 mmHg Critically low 35.0-45.0 [facility] Comment on above: Performed By: #### C BCA, HA1C, CMP, TSHR, 2131-10, 2275-05, FEPR, 2283-, 04503-6 #### [facility] ([id number]) [address], [address] [place] [address] #### 81284-2 #### [facility] ([id number]) [address] [place] [address] PH ARTERIAL 7.089 Critically low 7.350-7.450 [facility] Comment on above: Performed By: #### C BCA, HA1C, CMP, TSHR, 2131-9, 2276-4, FEPR, 2284-8, 77124-1 #### [facility] ([id number]) [address] [address], [address] [place] [address] #### 58429-7 #### [facility] ([id number]) [address] [place] [address] PO2 ARTERIAL 121 mmHg High 80-100 [facility] Comment on above: Performed By: #### C BCA, HA1C, CMP, TSHR, 2131-10, 6-4, FEPR, 2283-8, 42551-8 #### [facility] ([id number]) [address], [address] [place] [address] #### 36148-1 #### [facility] ([id number]) [address] [place] [id number] POC PRACHI'S TEST N/A Normal [facility] Comment on above: Performed By: #### C BCA, HA1C, CMP, TSHR, 2131-10, 6-4, FEPR, 4-8, 49855-2 #### [facility] ([id number]) [address], [address] [place] [address] #### 47250-0 #### [facility] ([id number]) [address] [place] [address] SAMPLE SITE R Rad Normal [facility] Comment on above: Performed By: #### C BCA, HA1C, CMP, TSHR, 9, 6-4, FEPR, 2284-8, 58688-4 #### [facility] ([id number]) [address], [address] [place] [address] #### 31106-5 #### [facility] ([id number]) [address] [place] [id number] SAMPLE TYPE ARTERIAL Normal [facility] Comment on above: Performed By: #### C BCA, HA1C, CMP, TSHR, 9, 6-4, FEPR, 2284-8, 05050-1 #### [facility] ([id number]) [address], [address] [place] [address] #### 77365-5 #### [facility] ([id number]) [address] [place] [address] SOURCE OF OXYGEN Room Air Normal [facility] Comment on above: Performed By: #### C BCA, HA1C, CMP, TSHR, 2131-10, 6-4, FEPR, 4-8, 79840-0 #### [facility] ([id number]) [address], [address] [place] [address] #### 94513-6 #### [facility] ([id number]) [address] [place] [address] 22594 BLOOD GAS, VENOUSon 09-13-19 25 BASE,DEFICIT -19.0 mmol/L Low 0.0-2.0 [facility] Comment on above: Performed By: #### C BCA, PINR, 09632-5 #### [facility] ([id number]) [address], [address] [place] [address] HCO3 (Bld) [Moles/Vol] 7.2 mmol/L Low 20.0-24.0 [facility] Comment on above: Performed By: #### C BCA, PINR, 61895-6 #### [facility] ([id number]) [address], [address] [place] [address] INSP. O2 CONC. 21 % Normal [facility] Comment on above: Performed By: #### Shira WOODALL PINR, 68669-8 #### [facility] ([id number]) [address], [address] [place] [address] Oxygen saturation in Blood 85.0 % Normal [facility] Comment on above: Performed By: #### Shira WOODALL PINR, 89821-7 #### [facility] ([id number]) [address], [address] [place] [address] PCO2 VENOUS 20.1 mmHg Low 35.0-50.0 [facility] Comment on above: Performed By: #### Shira WOODALL PINR, 78149-9 #### [facility] ([id number]) [address], [address] [place] [address] PH VENOUS 7.163 Low 7.320-7.420 [facility] Comment on above: Performed By: #### Shira WOODALL PINR, 07760-2 #### [facility] ([id number]) [address], [address] [place] [address] PO2 VENOUS 62 mmHg High 30-50 [facility] Comment on above: Performed By: #### Shira WOODALL PINR, 44651-4 #### [facility] ([id number]) [address], [address] [place] [address] POC PRACHI'S TEST N/A Normal [facility] Comment on above: Performed By: #### Shira [place], PINR, 62282-9 #### [facility] ([id number]) [address], [address] [place] [address] SAMPLE SITE N/A Normal [facility] Comment on above: Performed By: #### Shira [place], PINR, 79084-4 #### [facility] ([id number]) [address], [address] [place] [address] SAMPLE TYPE VENOUS Normal [facility] Comment on above: Performed By: #### C TALISHA, PINR, 99569-8 #### [facility] ([id number]) [address], [address] [place] [address] SOURCE OF OXYGEN Room Air Normal [facility] Comment on above: Performed By: #### C TALISHA, PINR, 03172-5 #### [facility] ([id number]) [address], [address] [place] [address] BLOOD GAS, VENOUS VBG BLOOD GAS, VENOUS Cancelled Normal [facility] CBC WITH AUTO DIFFERENTIALon 09-12-2024 Band form neutrophils/100 WBC (Bld) 5 % Normal [facility] Comment on above: Result Comment: This is an appended report. These results have been appended to a previously preliminary verified report. Performed By: #### C BCA, HA1C, CMP, TSHR, 2131-9, 6-4, FEPR, 2284-8, 51575-9 #### [facility] ([id number]) [address], [address] [place] [address] #### 71489-1 #### [facility] ([id number]) [address] [place] [address] 486[address] CELLAVISION JASVIR CELLS IN BLOOD BY LIGHT MICROSCOPY 1+ Normal [facility] Comment on above: Result Comment: This is an appended report. These results have been appended to a previously preliminary verified report. Performed By: #### C BCA, HA1C, CMP, TSHR, 2131-9, 2276-4, FEPR, 2284-8, 91016-1 #### [facility] ([id number]) [address], [address] [place] [address] #### 13222-6 #### [facility] ([id number]) [address] [place] [address] CELLAVISION DIFFERENTIAL TYPE MANUAL DIFFERENTIAL Normal [facility] Comment on above: Result Comment: This is an appended report. These results have been appended to a previously preliminary verified report. Performed By: #### C BCA, HA1C, CMP, TSHR, 2132-9, 2276-4, FEPR, 2284-8, 85868-3 #### [facility] ([id number]) [address], [address] [place] [address] #### 33591-4 #### [facility] ([id number]) [address] [place] [address]195 CELLAVISION ELLIPTOCYTES IN BLOOD BY LIGHT MICROSCOPY 1+ Normal [facility] Comment on above: Result Comment: This is an appended report. These results have been appended to a previously preliminary verified report. Performed By: #### C BCA, HA1C, CMP, TSHR, 2-9, 2276-4, FEPR, 2284-8, 44188-8 #### [facility] ([id number]) [address], [address] [place] [address] #### 21666-7 #### [facility] ([id number]) [address] [place] [address] 11964 CELLAVISION LYMPHOCYTES ABSOLUTE COUNT (10*3/UL) BY MANUAL COUNT 1.0 10*3/uL Normal 1.0-3.5 [facility] Comment on above: Result Comment: This is an appended report. These results have been appended to a previously preliminary verified report. Performed By: #### C BCA, HA1C, CMP, TSHR, 2-9, 2276-4, FEPR, 2284-8, 16627-6 #### [facility] ([id number]) [address], [address] [place] [address] #### 76285-3 #### [facility] ([id number]) [address] [place] [address] CELLAVISION LYMPHOCYTES RELATIVE PERCENT BY MANUAL COUNT 3 % Normal [facility] Comment on above: Result Comment: This is an appended report. These results have been appended to a previously preliminary verified report. Performed By: #### C BCA, HA1C, CMP, TSHR, 2132-9, 2276-4, FEPR, 2284-8, 29590-5 #### [facility] ([id number]) [address] [facility], [address] [place] [address] #### 89548-8 #### [facility] ([id number]) [address] [place] [address] 16678 CELLAVISION MONOCYTES ABSOLUTE COUNT (10*3/UL) IN BLOOD BY MANUAL COUNT 0.7 10*3/uL Normal 0.0-0.9 [facility] Comment on above: Result Comment: This is an appended report. These results have been appended to a previously preliminary verified report. Performed By: #### C BCA, HA1C, CMP, TSHR, 2-9, 2276-4, FEPR, 2284-8, 36349-0 #### [facility] ([id number]) [address] [facility], [address] [place] [address] #### 03350-7 #### [facility] ([id number]) [address] [place] [address]893 CELLAVISION MONOCYTES RELATIVE PERCENT BY MANUAL COUNT 2 % Normal [facility] Comment on above: Result Comment: This is an appended report. These results have been appended to a previously preliminary verified report. Performed By: #### C BCA, HA1C, CMP, TSHR, 2132-9, 2276-4, FEPR, 2284-8, 54487-6 #### [facility] ([id number]) [address] [facility], [address] [place] [address] #### 98453-9 #### [facility] ([id number]) [address] [place] [address] 13476 CELLAVISION NEUTROPHILS ABSOLUTE COUNT BY MANUAL COUNT 31.5 10*3/uL High 1.5-6.6 [facility] Comment on above: Result Comment: This is an appended report. These results have been appended to a previously preliminary verified report. Performed By: #### C BCA, HA1C, CMP, TSHR, 2132-9, 2276-4, FEPR, 2284-8, 79571-5 #### [facility] ([id number]) [address] [place] [address], [address] [place] [address] #### 45095-5 #### [facility] ([id number]) [address] [place] [address] 23600 CELLAVISION NEUTROPHILS RELATIVE PERCENT BY MANUAL COUNT 90 % Normal [facility] Comment on above: Result Comment: This is an appended report. These results have been appended to a previously preliminary verified report. Performed By: #### C BCA, HA1C, CMP, TSHR, 2132-9, 2276-4, FEPR, 2284-8, 62131-9 #### [facility] ([id number]) [address] [place] [address], [address] [place] [address] #### 30508-4 #### [facility] ([id number]) [address] [place] [address] 50357 CELLAVISION RBC FRAGMENTS 1+ Normal [facility] Comment on above: Result Comment: This is an appended report. These results have been appended to a previously preliminary verified report. Performed By: #### C BCA, HA1C, CMP, TSHR, 2132-9, 2276-4, FEPR, 2284-8, 44961-1 #### [facility] ([id number]) [address] [place] [address], [address] [place] [address] #### 54751-7 #### [facility] ([id number]) [address] [place] [address] 18958 Erythrocyte distribution width (RBC) [Ratio] 14.6 % Normal 11.5-15 [facility] Comment on above: Performed By: #### C BCA, HA1C, CMP, TSHR, 2131-9, 6-4, FEPR, 2284-8, 12726-8 #### [facility] ([id number]) [address], [address] [place] [address] #### 21425-8 #### [facility] ([id number]) [address] [place] [address] 56326 Hematocrit (Bld) [Volume fraction] 32.6 % Low 35-47 [facility] Comment on above: Performed By: #### C BCA, HA1C, CMP, TSHR, 2131-9, 6-4, FEPR, 4-8, 15400-1 #### [facility] ([id number]) [address], [address] [place] [address] #### 27769-0 #### [facility] ([id number]) [address] [place] [address] 08290 Hemoglobin (Bld) [Mass/Vol] 11.0 g/dL Low 11.7-15.5 [facility] Comment on above: Performed By: #### C BCA, HA1C, CMP, TSHR, 2131-, 6-4, FEPR, 2284-8, 10310-4 #### [facility] ([id number]) [address], [address] [place] [address] #### 01317-8 #### [facility] ([id number]) [address] [place] [address] 54285 MCH (RBC) [Entitic mass] 31.0 pg Normal 27-34 [facility] Comment on above: Performed By: #### C BCA, HA1C, CMP, TSHR, 2131-9, 2276-4, FEPR, 2284-8, 65110-6 #### [facility] ([id number]) [address], [address] [place] [address] #### 57317-8 #### [facility] ([id number]) [address] [place] [address] 41517 MCHC (RBC) [Mass/Vol] 33.7 g/dL Normal 32-36 [facility] Comment on above: Performed By: #### C BCA, HA1C, CMP, TSHR, 2131-9, 6-4, FEPR, 2284-8, 29618-5 #### [facility] ([id number]) [address], [address] [place] [address] #### 23697-3 #### [facility] ([id number]) [address] [place] [address] 11580 MCV (RBC) [Entitic vol] 92 fL Normal 80-100 [facility] Comment on above: Performed By: #### C BCA, HA1C, CMP, TSHR, 2131-9, 6-4, FEPR, 2284-8, 88897-8 #### [facility] ([id number]) [address], [address] [place] [address] #### 24902-6 #### [facility] ([id number]) [address] [place] [address] 48962 Platelet mean volume (Bld) [Entitic vol] 8.3 fL Normal 7-12 [facility] Comment on above: Performed By: #### C BCA, HA1C, CMP, TSHR, 2131-9, 6-4, FEPR, 2284-8, 73178-6 #### [facility] ([id number]) [address], [address] [place] [address] #### 71084-5 #### [facility] ([id number]) [address] [place] [address] 58782 Platelets (Bld) [#/Vol] 422 10*3/uL Normal 150-450 [facility] Comment on above: Performed By: #### C BCA, HA1C, CMP, TSHR, 2132-9, 2276-4, FEPR, 2284-8, 92462-5 #### [facility] ([id number]) [address] [place] [address], [address] [place] [address] #### 00133-8 #### [facility] ([id number]) [address] [place] [address] 02217 RBC COUNT 3.55 X10E12/L Low 3.8-5.2 [facility] Comment on above: Performed By: #### C BCA, HA1C, CMP, TSHR, 2-9, 2276-4, FEPR, 2284-8, 61775-2 #### [facility] ([id number]) [address] [place] [address], [address] [address] #### 43049-0 #### [facility] ([id number]) [address] [place] [address] 45347 WBC (Bld) [#/Vol] 33.2 10*3/uL High 4-11 [facility] Comment on above: Performed By: #### C BCA, HA1C, CMP, TSHR, 2132-9, 2276-4, FEPR, 2284-8, 76786-0 #### [facility] ([id number]) [address] [place] [address], [address] [place] [address] #### 63570-4 #### [facility] ([id number]) [address] [place] [address] 95893 CK TOTALon 09-12-2024 CPK 34 U/L Normal 24-170 [facility] Comment on above: Performed By: #### C BCA, PINR, 29663-9 #### [facility] ([id number]) [address] [facility], [address] [place] [address] COMPREHENSIVE METABOLIC PANE Brock 09-12-2024 Albumin [Mass/Vol] 3.1 g/dL Low 3.2-5.3 [facility] Comment on above: Performed By: #### C BCA, HA1C, CMP, TSHR, 2-9, 2276-4, FEPR, 2284-8, 57753-7 #### [facility] ([id number]) [address] [facility], [address] [place] [address] #### 53115-6 #### [facility] ([id number]) [address] [place] [address] 16869 ALP [Catalytic activity/Vol] 77 U/L Normal 39-130 [facility] Comment on above: Performed By: #### C BCA, HA1C, CMP, TSHR, 2131-9, 2276-4, FEPR, 2284-8, 32574-8 #### [facility] ([id number]) [address] [facility], [address] [place] [address] #### 69284-5 #### [facility] ([id number]) [address] [place] [address] 66976 ALT [Catalytic activity/Vol] 16 U/L Normal <=31 [facility] Comment on above: Performed By: #### C BCA, HA1C, CMP, TSHR, 2-9, 2276-4, FEPR, 2284-8, 91628-8 #### [facility] ([id number]) [address] [facility], [address] [place] [address] #### 06783-8 #### [facility] ([id number]) [address] [place] [address] 42575 Anion gap [Moles/Vol] 17 mmol/L High 5-15 [facility] Comment on above: Performed By: #### C BCA, HA1C, CMP, TSHR, 2-9, 2276-4, FEPR, 2284-8, 99291-3 #### [facility] ([id number]) [address] [facility], [address] [place] [address] #### 69000-4 #### [facility] ([id number]) [address] [place] [address] 76923 AST [Catalytic activity/Vol] 16 U/L Normal <=41 [facility] Comment on above: Performed By: #### C BCA, HA1C, CMP, TSHR, 2131-, 6-4, FEPR, 2284-8, 47502-8 #### [facility] ([id number]) [address] [facility], [address] [place] [address] #### 11054-6 #### [facility] ([id number]) [address] [place] [address] 15904 Bilirubin [Mass/Vol] 0.3 mg/dL Normal 0.3-1.2 [facility] Comment on above: Performed By: #### C BCA, HA1C, CMP, TSHR, 2131-9, 2276-4, FEPR, 2284-8, 85502-8 #### [facility] ([id number]) [address] [facility], [address] [place] [address] #### 10692-3 #### [facility] ([id number]) [address] [place] [address] 96609 Calcium [Mass/Vol] 7.1 mg/dL Low 8.5-10.5 [facility] Comment on above: Performed By: #### C BCA, HA1C, CMP, TSHR, 2131-9, 2276-4, FEPR, 2284-8, 52782-0 #### [facility] ([id number]) [address], [address] [place] [address] #### 21875-0 #### [facility] ([id number]) [address] [place] [address] 13988 Chloride [Moles/Vol] 97 mmol/L Low 98-109 [facility] Comment on above: Performed By: #### C BCA, HA1C, CMP, TSHR, 2131-9, 6-4, FEPR, 2284-8, 66077-3 #### [facility] ([id number]) [address] [facility], [address] [place] [address] #### 53399-7 #### [facility] ([id number]) [address] [place] [address] 04444 CO2 [Moles/Vol] 8 mmol/L Critically low 22-32 [facility] Comment on above: Performed By: #### C BCA, HA1C, CMP, TSHR, 2131-, 6-4, FEPR, 2284-8, 74037-2 #### [facility] ([id number]) [address] [facility], [address] [place] [address] #### 96470-6 #### [facility] ([id number]) [address] [place] [address] 42716 Creatinine [Mass/Vol] 3.51 mg/dL High 0.40-1.00 [facility] Comment on above: Result Comment: METH OD TRACEABLE TO IDMS STANDARD Performed By: #### C BCA, HA1C, CMP, TSHR, 2131-, 6-4, FEPR, 2284-8, 98721-4 #### [facility] ([id number]) [address], [address] [place] [address] #### 73420-5 #### [facility] ([id number]) [address] [place] [address] 57164 GFR/1.73 sq M.predicted among non-blacks MDRD (S/P/Bld) [Vol rate/Area] 14 mL/min/{1.73_m2} Low >=60 [facility] Comment on above: Result Comment: eGFR not reported due to non-numeric value for Creatinine. Reported eGFR is based on the CKD-EPI 2020 equation that does not use a race coefficient. Performed By: #### C BCA, HA1C, CMP, TSHR, 2131-9, 2276-4, FEPR, 2284-8, 96574-8 #### [facility] ([id number]) [address] [place] [address] #### 58637-6 #### [facility] ([id number]) [address] [place] [address] 04088 Glucose [Mass/Vol] 185 mg/dL High 65-99 [facility] Comment on above: Performed By: #### C BCA, HA1C, CMP, TSHR, 2131-10, 6-4, FEPR, 2284-8, 96080-1 #### [facility] ([id number]) [address] [place] [address] #### 87978-6 #### [facility] ([id number]) [address] [place] [address] 45239 Potassium [Moles/Vol] 5.3 mmol/L High 3.5-5.0 [facility] Comment on above: Performed By: #### C BCA, HA1C, CMP, TSHR, 2131-9, 2276-4, FEPR, 2284-8, 52111-4 #### [facility] ([id number]) [address] [place] [address] #### 18220-9 #### [facility] ([id number]) [address] [place] [address] 85688 Protein [Mass/Vol] 5.9 g/dL Low 6.0-8.0 [facility] Comment on above: Performed By: #### C BCA, HA1C, CMP, TSHR, 2132-9, 2276-4, FEPR, 2284-8, 02955-7 #### [facility] ([id number]) [address], [address] [place] [address] #### 26678-2 #### [facility] ([id number]) [address] [place] [address] 47659 Sodium [Moles/Vol] 122 mmol/L Low 134-146 [facility] Comment on above: Performed By: #### C BCA, HA1C, CMP, TSHR, 2-9, 2276-4, FEPR, 2284-8, 37662-4 #### [facility] ([id number]) [address], [address] [place] [address] #### 56828-3 #### [facility] ([id number]) [address] [place] [address] 35303 Urea nitrogen [Mass/Vol] 118 mg/dL High 5-27 [facility] Comment on above: Performed By: #### C BCA, HA1C, CMP, TSHR, 2-9, 2276-4, FEPR, 2284-8, 82197-8 #### [facility] ([id number]) [address], [address] [place] [address] #### 76761-5 #### [facility] ([id number]) [address] [place] [address] BRAIN WO CONTon 5 CT BRAIN [...] Kauffman MD on 09/12/2024 3:47 PM Normal [facility] CT CTA ABD AND PELVISon 08-15 [...] Kauffman MD on 09/12/2024 3:57 PM Normal [facility] CT CTA ABD AORTA W RUNOFFon [...] Nixon MD on 09/12/2024 4:52 PM Normal [facility] CT CTA CHESTon 09-12-2024 CT CTA [...] acute thoracic abnormality. Approved by Resident Mahnaz Agudelo DO on 09/12/2024 3:49 PM IMarkos MD have personally reviewed the image(s) and agree with and/or edited the report Finalized by Markos Bañuelos MD on 09/12/2024 4:03 PM Normal [facility] LACTATEon 09-12-2024 Lactate [Moles/Vol] 1.0 mmol/L Normal 0.4-2.0 [facility] Comment on above: Performed By: #### C BCA, HA1C, CMP, TSHR, 2132-9, 2276-4, FEPR, 2284-8, 41284-3 #### [facility] ([id number]) [address] [facility], [address] [place] [address] #### 31448-9 #### [facility] ([id number]) [address] [place] [address] 74361 LACTATE W/ REFLEXon 09-13-19 25 LACTATE W/REFLEX 1.4 mmol/L Normal 0.4-2.0 [facility] Comment on above: Order Comment: Resul t did not trigger repeat Lactate,re-order if needed. Performed By: #### C BCA, PINR, 12259-8 #### [facility] ([id number]) [address] [facility], [address] [place] [address] LACTATE W/REFLEX 2.3 mmol/L High 0.4-2.0 [facility] Comment on above: Performed By: #### C BCA, HA1C, CMP, TSHR, 2131-10, 6-4, FEPR, 2283-09, 79398-8 #### [facility] ([id number]) [address] [facility], [address] [place] [address] #### 98741-6 #### [facility] ([id number]) [address] [place] [address] 47050 MAGNESIUMon 09-12-2024 Magnesium [Mass/Vol] 3.1 mg/dL High 1.8-2.6 [facility] Comment on above: Performed By: #### C BCA, HA1C, CMP, TSHR, 2131-10, 2275-05, FEPR, 2288, 70213-6 #### [facility] ([id number]) [address], [address] [place] [address] #### 52490-5 #### [facility] ([id number]) [address] [place] [address] MYOGLOBIN, SERUMon 5 SERUM MYOGLOBIN 68.8 ng/mL High 14.3-65.8 [facility] Comment on above: Performed By: #### C BCA, PINR, 98980-3 #### [facility] ([id number]) [address], [address] [place] [address] OSMOLALITYon 09-12-2024 OSMOLALITY 319 mOsm/kg H2 High 280-300 [facility] Comment on above: Performed By: #### C BCA, PINR, 70131-0 #### [facility] ([id number]) [address], [address] [place] [address] POCT NURSING URINE MACROSCOP IC UAon 09-12-2024 BILIRUBIN KYLIE Negative Normal Negative [facility] Comment on above: Performed By: #### C BCA, HA1C, CMP, TSHR, 2131-9, 2276-4, FEPR, 2284-8, 49096-9 #### [facility] ([id number]) [address], [address] [place] [address] #### 05058-9 #### [facility] ([id number]) [address] [place] [address] BLOOD/HGB KYLIE Moderate Abnormal Negative [facility] Comment on above: Performed By: #### C BCA, HA1C, CMP, TSHR, 2131-9, 6-4, FEPR, 2284-8, 32148-6 #### [facility] ([id number]) [address], [address] [place] [address] #### 95855-9 #### [facility] ([id number]) [address] [place] [address] GLUCOSE KYLIE 100 mg/dL Abnormal Negative [facility] Comment on above: Performed By: #### C BCA, HA1C, CMP, TSHR, 2-9, 2276-4, FEPR, 2284-8, 25213-7 #### [facility] ([id number]) [address] [facility] [address], [address] [place] [address] #### 66838-8 #### [facility] ([id number]) [address] [place] [address] KETONES KYLIE Negative Normal Negative [facility] Comment on above: Performed By: #### C BCA, HA1C, CMP, TSHR, 2131-9, 6-4, FEPR, 4-8, 40181-6 #### [facility] ([id number]) [address], [address] [place] [address] #### 48551-6 #### [facility] ([id number]) [address] [place] [address] LEUKOCYTE ESTERASE KYLIE Negative Normal Negative [facility] Comment on above: Performed By: #### C BCA, HA1C, CMP, TSHR, 2131-10, 6-4, FEPR, 2283-, 97563-4 #### [facility] ([id number]) [address] [facility] [address], [address] [place] [address] #### 67119-6 #### [facility] ([id number]) [address] [place] [address] NITRITE KYLIE Negative Normal Negative [facility] Comment on above: Performed By: #### C BCA, HA1C, CMP, TSHR, 2131-10, 6-4, FEPR, 2283-8, 28818-5 #### [facility] ([id number]) [address] [facility] [address], [address] [place] [address] #### 42518-1 #### [facility] ([id number]) [address] [place] [address] PH KYILE 5.5 Normal 5.0, 6.0, 6.5, 7.0, 7.5, 8.0, 8.5, 5.5 [facility] Comment on above: Performed By: #### C BCA, HA1C, CMP, TSHR, 2131-, 6-4, FEPR, 4-8, 44312-6 #### [facility] ([id number]) [address] [facility] [address], [address] [place] [address] #### 00062-9 #### [facility] ([id number]) [address] [place] [address] PROTEIN KYLIE 100 mg/dL Abnormal Negative [facility] Comment on above: Performed By: #### C BCA, HA1C, CMP, TSHR, 2131-10, 2275-, FEPR, 4-8, 91779-9 #### [facility] ([id number]) [address], [address] [place] [address] #### 01917-0 #### [facility] ([id number]) [address] [place] [address] SPECIFIC GRAVITY KYLIE 1.020 Normal 1.010, 1.015, 1.020, 1.025 [facility] Comment on above: Performed By: #### C BCA, HA1C, CMP, TSHR, 2131-10, 6-4, FEPR, 4-8, 73359-6 #### [facility] ([id number]) [address], [address] [place] [address] #### 60643-1 #### [facility] ([id number]) [address] [place] [address] UROBILINOGEN KYLIE 0.2 E.U./dL Normal [facility] Comment on above: Performed By: #### C BCA, HA1C, CMP, TSHR, 2131-10, 6-4, FEPR, 2284-8, 48846-7 #### [facility] ([id number]) [address], [address] [place] [address] #### 67589-3 #### [facility] ([id number]) [address] [place] [address] PROCALCITONINon 09-12-2024 PROCALCITONIN 3.48 ng/mL High <0.05 [facility] Comment on above: Order Comment: <0.50 ng/mL - Low risk of severe sepsis and/or septic shock.<2.00 ng/mL - Recommend retesting within 6-24 hours.>2.00 ng/mL - High risk of sepsis and/or septic shock. Performed By: #### C BCA, HA1C, CMP, TSHR, 2132-9, 2276-4, FEPR, 2284-8, 38127-7 #### [facility] ([id number]) [address] [facility], [address] [address] #### 49277-7 #### [facility] ([id number]) [address] [place] [address] TROP I, HIGH SENSITIVITY 1 H OURon 09-12-2024 TROPONIN I, HIGH SENSITIVITY 13 ng/L Normal <16 [facility] Comment on above: Performed By: #### C BCA, HA1C, CMP, TSHR, 2-9, 2276-4, FEPR, 2284-8, 34662-5 #### [facility] ([id number]) [address] [facility], [address] [place] [address] #### 42646-5 #### [facility] ([id number]) [address] [place] [address] TROPONIN I, HIGH SENSITIVITY 0 HOURon 09-12-2024 TROPONIN I, HIGH SENSITIVITY 12 ng/L Normal <16 [facility] Comment on above: Performed By: #### C BCA, HA1C, CMP, TSHR, 2-9, 2276-4, FEPR, 2284-8, 30026-0 #### [facility] ([id number]) [address], [address] [place] [address] #### 67546-3 #### [facility] ([id number]) [address] [place] [address] URINE CULTUREon 09-12-2024 Bacteria identified Cx Nom (U) CULTURE RESULTS STREPTOCOCCI, BETA HEMOLYTIC NOT GROUP A OR B 10,000-50,000 CFU/mL Streptococci, beta hemolytic not group a or b Normal [facility] Comment on above: Performed By: #### C BCA, HA1C, CMP, TSHR, 2132-9, 2276-4, FEPR, 2284-8, 89913-9 #### [facility] ([id number]) [address] [address], [address] [place] [address] #### 65540-6 #### [facility] ([id number]) [address] [place] [address] US ABDOMEN LMTDon 09-12-2024 US ABDOMEN LMTD [...] Pascal MD on 09/12/2024 4:42 PM Normal [facility] BASIC METABOLIC PANLon 05-18 Anion gap [Moles/Vol] 10 mmol/L Normal 5-15 [facility] Comment on above: Performed By: #### C BCA, PINR, 72057-2 #### [facility] ([id number]) [address], [address] [place] [address] Calcium [Mass/Vol] 9.6 mg/dL Normal 8.5-10.5 [facility] Comment on above: Performed By: #### C TALISHA PINR, 69911-8 #### [facility] ([id number]) [address], [address] [place] [address] Chloride [Moles/Vol] 99 mmol/L Normal 98-109 [facility] Comment on above: Performed By: #### C TALISHA PINR, 25837-8 #### [facility] ([id number]) [address], [address] [place] [address] CO2 [Moles/Vol] 25 mmol/L Normal 22-32 [facility] Comment on above: Performed By: #### C TALISHA, PINR, 41747-2 #### [facility] ([id number]) [address], [address] [place] [address] Creatinine [Mass/Vol] 0.44 mg/dL Normal 0.40-1.00 [facility] Comment on above: Result Comment: METH OD TRACEABLE TO IDMS STANDARD Performed By: #### C TALISHA PINR, 24536-0 #### [facility] ([id number]) [address], [address] [place] [address] eGFR (CKD-EPI) NON-RACE DEPENDENT >90 Normal >59 [facility] Comment on above: Result Comment: Reported eGFR is based on the CKD-EPI 2020 equation that does not use a race coefficient. Performed By: #### C TALISHA, PINR, 98957-9 #### [facility] ([id number]) [address], [address] [place] [address] Glucose [Mass/Vol] 104 mg/dL High 65-99 [facility] Comment on above: Performed By: #### C BCA, PINR, 27995-3 #### [facility] ([id number]) [address], [address] [place] [address] Potassium [Moles/Vol] 4.2 mmol/L Normal 3.5-5.0 [facility] Comment on above: Performed By: #### C TALISHA PINR, 35637-0 #### [facility] ([id number]) [address], [address] [place] [address] Sodium [Moles/Vol] 134 mmol/L Normal 134-146 [facility] Comment on above: Performed By: #### C TALISHA, PINR, 98854-3 #### [facility] ([id number]) [address], [address] [place] [address] Urea nitrogen [Mass/Vol] 8 mg/dL Normal 5-27 [facility] Comment on above: Performed By: #### C TALISHA, PINR, 57167-4 #### [facility] ([id number]) [address], [address] [place] [address] Basic Metabolic Panelon Anion gap [Moles/Vol] 10 mmol/L 5 - 15 mmol/L [facility] Calcium [Mass/Vol] 9.6 mg/dL 8.5 - 10. 5 mg/dL [facility] Chloride [Moles/Vol] 99 mmol/L 98 - 10 9 mmol/L [facility] CO2 [Moles/Vol] 25 mmol/L 22 - 32 mmol/L [facility] Creatinine [Mass/Vol] 0.44 mg/dL 0.40 - 1.00 mg/dL [facility] eGFR (CKD-EPI)non-race dependent - PINF [facility] Glucose [Mass/Vol] 104 mg/dL High 65 - 99 mg/dL [facility] Interpretation and review of laboratory results Abnormal [facility] Potassium [Moles/Vol] 4.2 mmol/L 3.5 - 5.0 mmol/L [facility] Sodium [Moles/Vol] 134 mmol/L 134 - 146 mmol/L [facility] Urea nitrogen [Mass/Vol] 8 mg/dL 5 - 27 mg/dL [facility] Calcium.ionized (Bld) [Mass/ Vol]on 05-18-2024 [facility] IONIZED CALCIUM 5.0 mg/dL Normal 4.5-5.3 [facility] Comment on above: Performed By: #### KEVIN Silva BCA, 27543-0 #### [facility] ([id number]) [address], [address] [place] [address] Ionized calciumon 05-18-2024 Calcium.ionized (Bld) [Mass/Vol] 5 mg/dL 4.5 - 5.3 mg/dL [facility] MAGNESIUMon 05-18-2024 Magnesium [Mass/Vol] 2.1 mg/dL Normal 1.8-2.6 [facility] Comment on above: Performed By: #### KEVIN Silva BCA, 97333-2 #### [facility] ([id number]) [address], [address] [place] [address] Magnesiumon 05-18-2024 Magnesium [Mass/Vol] 2.1 mg/dL 1.8 - 2 .6 mg/dL [facility] No Panel Informationon 05-18 [facility] PHOSPHORUSon 05-18-2024 Phosphate [Mass/Vol] 4.4 mg/dL Normal 2.4-4.9 [facility] Comment on above: Performed By: #### KEVIN Silva BCA, 67272-4 #### [facility] ([id number]) [address], [address] [place] [address] Phosphoruson 05-18-2024 Phosphate [Mass/Vol] 4.4 mg/dL 2.4 - 4 .9 mg/dL [facility] CBC without diffon Erythrocyte distribution width (RBC) [Ratio] 13.3 % 11.5 - 15.0 % [facility] Hematocrit (Bld) [Volume fraction] 36.6 % 35 - 47 % [facility] Hemoglobin (Bld) [Mass/Vol] 12.8 g/dL 11.7 - 15.5 g/dL [facility] Interpretation and review of laboratory results Abnormal [facility] MCH (RBC) [Entitic mass] 33.7 pg 27 - 34 pg [facility] MCHC (RBC) [Mass/Vol] 34.9 g/dL 32 - 36 g/dL [facility] MCV (RBC) [Entitic vol] 97 fL 80 - 100 fL [facility] Platelet mean volume (Bld) [Entitic vol] 7.7 fL 7 - 12 fL [facility] Platelets (Bld) [#/Vol] 388 10*3/uL [facility] RBC (Bld) [#/Vol] 3.79 10*6/uL [facility] WBC corrected for nucl RBC Auto (Bld) [#/Vol] 7 [facility] COMPLETE BLOOD COUNTon 05-17 Erythrocyte distribution width (RBC) [Ratio] 13.3 % Normal 11.5-15.0 [facility] Comment on above: Performed By: #### 3 274-8, 2951-2 #### [facility] ([id number]) [address], [address] [place] [address] Hematocrit (Bld) [Volume fraction] 36.6 % Normal 35-47 [facility] Comment on above: Performed By: #### 3 274-8, 2951-2 #### [facility] ([id number]) [address], [address] [place] [address] Hemoglobin (Bld) [Mass/Vol] 12.8 g/dL Normal 11.7-15.5 [facility] Comment on above: Performed By: #### 3 274-8, 2951-2 #### [facility] ([id number]) [address], [address] [place] [address] MCH (RBC) [Entitic mass] 33.7 pg Normal 27-34 [facility] Comment on above: Performed By: #### 3 274-8, 2951-2 #### [facility] ([id number]) [address], [address] [place] [address] MCHC (RBC) [Mass/Vol] 34.9 g/dL Normal 32-36 [facility] Comment on above: Performed By: #### 3 274-8, 2951-2 #### [facility] ([id number]) [address], [address] [place] [address] MCV (RBC) [Entitic vol] 97 fL Normal 80-100 [facility] Comment on above: Performed By: #### 3 274-8, 2951-2 #### [facility] ([id number]) [address], [address] [place] [address] Platelet mean volume (Bld) [Entitic vol] 7.7 fL Normal 7-12 [facility] Comment on above: Performed By: #### 3 274-8, 2951-2 #### [facility] ([id number]) [address], [address] [place] [address] Platelets (Bld) [#/Vol] 388 10*3/uL Normal 150-450 [facility] Comment on above: Performed By: #### 3 274-8, 2951-2 #### [facility] ([id number]) [address], [address] [place] [address] RBC COUNT 3.79 X10E12/L Low 3.80-5.20 [facility] Comment on above: Performed By: #### 3 274-8, 2951-2 #### [facility] ([id number]) [address], [address] [place] [address] WBC (Bld) [#/Vol] 7.0 10*3/uL Normal 4.0-11.0 [facility] Comment on above: Performed By: #### 3 274-8, 2951-2 #### [facility] ([id number]) [address], [address] [place] [address] COMPREHENSIVE METABOLIC PANE Brock 05-17-2024 Albumin [Mass/Vol] 3.9 g/dL Normal 3.2-5.3 [facility] Comment on above: Performed By: #### 3 274-8, 2951-2 #### [facility] ([id number]) [address], [address] [place] [address] ALP [Catalytic activity/Vol] 77 U/L Normal 39-130 [facility] Comment on above: Performed By: #### 3 274-8, 2951-2 #### [facility] ([id number]) [address], [address] [place] [address] ALT [Catalytic activity/Vol] 16 U/L Normal 0-31 [facility] Comment on above: Performed By: #### 3 274-8, 2950-2 #### [facility] ([id number]) [address], [address] [place] [address] Anion gap [Moles/Vol] 10 mmol/L Normal 5-15 [facility] Comment on above: Performed By: #### 3 274-8, 1-2 #### [facility] ([id number]) [address], [address] [place] [address] AST [Catalytic activity/Vol] 18 U/L Normal 0-41 [facility] Comment on above: Performed By: #### 3 274-8, 2950-2 #### [facility] ([id number]) [address], [address] [place] [address] Bilirubin [Mass/Vol] 0.4 mg/dL Normal 0.3-1.2 [facility] Comment on above: Performed By: #### 3 274-8, 295-2 #### [facility] ([id number]) [address], [address] [place] [address] Calcium [Mass/Vol] 9.1 mg/dL Normal 8.5-10.5 [facility] Comment on above: Performed By: #### 3 274-8, 2951-2 #### [facility] ([id number]) [address], [address] [place] [address] Chloride [Moles/Vol] 100 mmol/L Normal 98-109 [facility] Comment on above: Performed By: #### 3 274-8, 2950-2 #### [facility] ([id number]) [address], [address] [place] [address] CO2 [Moles/Vol] 23 mmol/L Normal 22-32 [facility] Comment on above: Performed By: #### 3 274-8, 2950-2 #### [facility] ([id number]) [address], [address] [place] [address] Creatinine [Mass/Vol] 0.48 mg/dL Normal 0.40-1.00 [facility] Comment on above: Result Comment: METH OD TRACEABLE TO IDMS STANDARD Performed By: #### 3 274-8, 2950-2 #### [facility] ([id number]) [address], [address] [place] [address] eGFR (CKD-EPI) NON-RACE DEPENDENT >90 Normal >59 [facility] Comment on above: Result Comment: Reported eGFR is based on the CKD-EPI 1 equation that does not use a race coefficient. Performed By: #### 3 274-8, 2950-2 #### [facility] ([id number]) [address], [address] [place] [address] Glucose [Mass/Vol] 105 mg/dL High 65-99 [facility] Comment on above: Performed By: #### 3 274-8, 2950-2 #### [facility] ([id number]) [address], [address] [place] [address] Potassium [Moles/Vol] 4.0 mmol/L Normal 3.5-5.0 [facility] Comment on above: Performed By: #### 3 274-8, 2950-2 #### [facility] ([id number]) [address], [address] [place] [address] Protein [Mass/Vol] 6.8 g/dL Normal 6.0-8.0 [facility] Comment on above: Performed By: #### 3 274-8, 2951-2 #### [facility] ([id number]) [address], [address] [place] [address] Sodium [Moles/Vol] 133 mmol/L Low 134-146 [facility] Comment on above: Performed By: #### 3 274-8, 2951-2 #### [facility] ([id number]) [address], [address] [place] [address] Urea nitrogen [Mass/Vol] 12 mg/dL Normal 5-27 [facility] Comment on above: Performed By: #### 3 274-8, 2951-2 #### [facility] ([id number]) [address], [address] [place] [address] Calcium.ionized (Bld) [Mass/ Vol]on 05-17-2024 [facility] IONIZED CALCIUM 4.6 mg/dL Normal 4.5-5.3 [facility] Comment on above: Performed By: #### 3 274-8, 2951-2 #### [facility] ([id number]) [address], [address] [place] [address] Comprehensive metabolic pane brock 05-17-2024 Albumin [Mass/Vol] 3.9 g/dL 3.2 - 5.3 g/dL [facility] ALP [Catalytic activity/Vol] 77 U/L 39 - 130 U/L [facility] ALT No additional P-5'-P [Catalytic activity/Vol] 16 U/L 0 - 31 U/L [facility] Anion gap [Moles/Vol] 10 mmol/L 5 - 15 mmol/L [facility] AST [Catalytic activity/Vol] 18 U/L 0 - 41 U/L [facility] Bilirubin [Mass/Vol] 0.4 mg/dL 0.3 - 1 .2 mg/dL [facility] Calcium [Mass/Vol] 9.1 mg/dL 8.5 - 10. 5 mg/dL [facility] Chloride [Moles/Vol] 100 mmol/L 98 - 10 9 mmol/L [facility] CO2 [Moles/Vol] 23 mmol/L 22 - 32 mmol/L [facility] Creatinine [Mass/Vol] 0.48 mg/dL 0.40 - 1.00 mg/dL [facility] eGFR (CKD-EPI)non-race dependent - PINF [facility] Glucose [Mass/Vol] 105 mg/dL High 65 - 99 mg/dL [facility] Interpretation and review of laboratory results Abnormal [facility] Potassium [Moles/Vol] 4 mmol/L 3.5 - 5.0 mmol/L [facility] Protein [Mass/Vol] 6.8 g/dL 6.0 - 8.0 g/dL [facility] Sodium [Moles/Vol] 133 mmol/L Low 134 - 146 mmol/L [facility] Urea nitrogen [Mass/Vol] 12 mg/dL 5 - 27 mg/dL [facility] Ionized calciumon 05-17-2024 Calcium.ionized (Bld) [Mass/Vol] 4.6 mg/dL 4.5 - 5.3 mg/dL [facility] MAGNESIUMon 05-17-2024 Magnesium [Mass/Vol] 2.1 mg/dL Normal 1.8-2.6 [facility] Comment on above: Performed By: #### 3 274-8, 2951-2 #### [facility] ([id number]) [address], [address] [place] [address] Magnesiumon 05-17-2024 Magnesium [Mass/Vol] 2.1 mg/dL 1.8 - 2 .6 mg/dL [facility] No Panel Informationon 05-17 [facility] PHOSPHORUSon 05-17-2024 Phosphate [Mass/Vol] 4.3 mg/dL Normal 2.4-4.9 [facility] Comment on above: Performed By: #### 3 274-8, 2951-2 #### [facility] ([id number]) [address], [address] [place] [address] Phosphoruson 05-17-2024 Phosphate [Mass/Vol] 4.3 mg/dL 2.4 - 4 .9 mg/dL [facility] CBC without diffon Erythrocyte distribution width (RBC) [Ratio] 12.8 % 11.5 - 15.0 % [facility] Hematocrit (Bld) [Volume fraction] 33.4 % Low 35 - 47 % [facility] Hemoglobin (Bld) [Mass/Vol] 11.9 g/dL 11.7 - 15.5 g/dL [facility] Interpretation and review of laboratory results Abnormal [facility] MCH (RBC) [Entitic mass] 33.7 pg 27 - 34 pg [facility] MCHC (RBC) [Mass/Vol] 35.4 g/dL 32 - 36 g/dL [facility] MCV (RBC) [Entitic vol] 95 fL 80 - 100 fL [facility] Platelet mean volume (Bld) [Entitic vol] 8.1 fL 7 - 12 fL [facility] Platelets (Bld) [#/Vol] 394 10*3/uL [facility] RBC (Bld) [#/Vol] 3.51 10*6/uL Low [facility] WBC corrected for nucl RBC Auto (Bld) [#/Vol] 7.3 [facility] COMPLETE BLOOD COUNTon 05-16 Erythrocyte distribution width (RBC) [Ratio] 12.8 % Normal 11.5-15.0 [facility] Comment on above: Performed By: #### 3 274-8, 2951-2 #### [facility] ([id number]) [address], [address] [place] [address] Hematocrit (Bld) [Volume fraction] 33.4 % Low 35-47 [facility] Comment on above: Performed By: #### 3 274-8, 2951-2 #### [facility] ([id number]) [address], [address] [place] [address] Hemoglobin (Bld) [Mass/Vol] 11.9 g/dL Normal 11.7-15.5 [facility] Comment on above: Performed By: #### 3 274-8, 2951-2 #### [facility] ([id number]) [address], [address] [place] [address] MCH (RBC) [Entitic mass] 33.7 pg Normal 27-34 [facility] Comment on above: Performed By: #### 3 274-8, 2951-2 #### [facility] ([id number]) [address], [address] [place] [address] MCHC (RBC) [Mass/Vol] 35.4 g/dL Normal 32-36 [facility] Comment on above: Performed By: #### 3 274-8, 1-2 #### [facility] ([id number]) [address], [address] [place] [address] MCV (RBC) [Entitic vol] 95 fL Normal 80-100 [facility] Comment on above: Performed By: #### 3 274-8, 2951-2 #### [facility] ([id number]) [address], [address] [place] [address] Platelet mean volume (Bld) [Entitic vol] 8.1 fL Normal 7-12 [facility] Comment on above: Performed By: #### 3 274-8, 2951-2 #### [facility] ([id number]) [address], [address] [place] [address] Platelets (Bld) [#/Vol] 394 10*3/uL Normal 150-450 [facility] Comment on above: Performed By: #### 3 274-8, 2951-2 #### [facility] ([id number]) [address], [address] [place] [address] RBC COUNT 3.51 X10E12/L Low 3.80-5.20 [facility] Comment on above: Performed By: #### 3 274-8, 2951-2 #### [facility] ([id number]) [address], [address] [place] [address] WBC (Bld) [#/Vol] 7.3 10*3/uL Normal 4.0-11.0 [facility] Comment on above: Performed By: #### 3 274-8, 2951-2 #### [facility] ([id number]) [address], [address] [place] [address] COMPREHENSIVE METABOLIC PANE Brock 05-16-2024 Albumin [Mass/Vol] 3.7 g/dL Normal 3.2-5.3 [facility] Comment on above: Performed By: #### 3 274-8, 2951-2 #### [facility] ([id number]) [address], [address] [place] [address] ALP [Catalytic activity/Vol] 78 U/L Normal 39-130 [facility] Comment on above: Performed By: #### 3 274-8, 2951-2 #### [facility] ([id number]) [address], [address] [place] [address] ALT [Catalytic activity/Vol] 22 U/L Normal 0-31 [facility] Comment on above: Performed By: #### 3 274-8, 2951-2 #### [facility] ([id number]) [address], [address] [place] [address] Anion gap [Moles/Vol] 10 mmol/L Normal 5-15 [facility] Comment on above: Performed By: #### 3 274-8, 2951-2 #### [facility] ([id number]) [address], [address] [place] [address] AST [Catalytic activity/Vol] 17 U/L Normal 0-41 [facility] Comment on above: Performed By: #### 3 274-8, 2951-2 #### [facility] ([id number]) [address], [address] [place], [place] [address] Bilirubin [Mass/Vol] 0.4 mg/dL Normal 0.3-1.2 [facility] Comment on above: Performed By: #### 3 274-8, 2951-2 #### [facility] ([id number]) [address], [address] [place], [place] [address] Calcium [Mass/Vol] 9.3 mg/dL Normal 8.5-10.5 [facility] Comment on above: Performed By: #### 3 274-8, 2951-2 #### [facility] ([id number]) [address], [address] [place], [place] [address] Chloride [Moles/Vol] 98 mmol/L Normal 98-109 [facility] Comment on above: Performed By: #### 3 274-8, 2951-2 #### [facility] ([id number]) [address], [address] [place], [place] [address] CO2 [Moles/Vol] 25 mmol/L Normal 22-32 [facility] Comment on above: Performed By: #### 3 274-8, 2951-2 #### [facility] ([id number]) [address], [address] [place], [place] [address] Creatinine [Mass/Vol] 0.45 mg/dL Normal 0.40-1.00 [facility] Comment on above: Result Comment: METH OD TRACEABLE TO IDMS STANDARD Performed By: #### 3 274-8, 2951-2 #### [facility] ([id number]) [address], [address] [place], [place] [address] eGFR (CKD-EPI) NON-RACE DEPENDENT >90 Normal >59 [facility] Comment on above: Result Comment: Reported eGFR is based on the CKD-EPI 2020 equation that does not use a race coefficient. Performed By: #### 3 274-8, 2951-2 #### [facility] ([id number]) [address], [address] [place], [place] [address] Glucose [Mass/Vol] 95 mg/dL Normal 65-99 [facility] Comment on above: Performed By: #### 3 274-8, 2950-2 #### [facility] ([id number]) [address], [address] [place], [place] [address] Potassium [Moles/Vol] 4.0 mmol/L Normal 3.5-5.0 [facility] Comment on above: Performed By: #### 3 274-8, 1-2 #### [facility] ([id number]) [address], [address] [place] [address] Protein [Mass/Vol] 6.9 g/dL Normal 6.0-8.0 [facility] Comment on above: Performed By: #### 3 274-8, 2951-2 #### [facility] ([id number]) [address], [address] [place], [place] [address] Sodium [Moles/Vol] 133 mmol/L Low 134-146 [facility] Comment on above: Performed By: #### 3 274-8, 295-2 #### [facility] ([id number]) [address], [address] [place], [place] [address] Urea nitrogen [Mass/Vol] 13 mg/dL Normal 5-27 [facility] Comment on above: Performed By: #### 3 274-8, 2951-2 #### [facility] ([id number]) [address], [address] [place] [address] Calcium.ionized (Bld) [Mass/ Vol]on 05-16-2024 [facility] IONIZED CALCIUM 4.5 mg/dL Normal 4.5-5.3 [facility] Comment on above: Performed By: #### 3 274-8, 2951-2 #### [facility] ([id number]) [address], [address] [place] [address] Comprehensive metabolic pane brock 05-16-2024 Albumin [Mass/Vol] 3.7 g/dL 3.2 - 5.3 g/dL [facility] ALP [Catalytic activity/Vol] 78 U/L 39 - 130 U/L [facility] ALT No additional P-5'-P [Catalytic activity/Vol] 22 U/L 0 - 31 U/L [facility] Anion gap [Moles/Vol] 10 mmol/L 5 - 15 mmol/L [facility] AST [Catalytic activity/Vol] 17 U/L 0 - 41 U/L [facility] Bilirubin [Mass/Vol] 0.4 mg/dL 0.3 - 1 .2 mg/dL [facility] Calcium [Mass/Vol] 9.3 mg/dL 8.5 - 10. 5 mg/dL [facility] Chloride [Moles/Vol] 98 mmol/L 98 - 10 9 mmol/L [facility] CO2 [Moles/Vol] 25 mmol/L 22 - 32 mmol/L [facility] Creatinine [Mass/Vol] 0.45 mg/dL 0.40 - 1.00 mg/dL [facility] eGFR (CKD-EPI)non-race dependent - PINF [facility] Glucose [Mass/Vol] 95 mg/dL 65 - 99 mg/dL [facility] Interpretation and review of laboratory results Abnormal [facility] Potassium [Moles/Vol] 4 mmol/L 3.5 - 5.0 mmol/L [facility] Protein [Mass/Vol] 6.9 g/dL 6.0 - 8.0 g/dL [facility] Sodium [Moles/Vol] 133 mmol/L Low 134 - 146 mmol/L [facility] Urea nitrogen [Mass/Vol] 13 mg/dL 5 - 27 mg/dL [facility] Ionized calciumon 05-16-2024 Calcium.ionized (Bld) [Mass/Vol] 4.5 mg/dL 4.5 - 5.3 mg/dL [facility] MAGNESIUMon 05-16-2024 Magnesium [Mass/Vol] 2.0 mg/dL Normal 1.8-2.6 [facility] Comment on above: Performed By: #### 3 274-8, 2951-2 #### [facility] ([id number]) [address], [address] [place] [address] Magnesiumon 05-16-2024 Magnesium [Mass/Vol] 2 mg/dL 1.8 - 2 .6 mg/dL [facility] No Panel Informationon 05-16 [facility] PHOSPHORUSon 05-16-2024 Phosphate [Mass/Vol] 4.3 mg/dL Normal 2.4-4.9 [facility] Comment on above: Performed By: #### 3 274-8, 2951-2 #### [facility] ([id number]) [address], [address] [place] [address] Phosphoruson 05-16-2024 Phosphate [Mass/Vol] 4.3 mg/dL 2.4 - 4 .9 mg/dL [facility] CBC without diffon Erythrocyte distribution width (RBC) [Ratio] 12.9 % 11.5 - 15.0 % [facility] Hematocrit (Bld) [Volume fraction] 38.1 % 35 - 47 % [facility] Hemoglobin (Bld) [Mass/Vol] 13.5 g/dL 11.7 - 15.5 g/dL [facility] MCH (RBC) [Entitic mass] 33.9 pg 27 - 34 pg [facility] MCHC (RBC) [Mass/Vol] 35.3 g/dL 32 - 36 g/dL [facility] MCV (RBC) [Entitic vol] 96 fL 80 - 100 fL [facility] Platelet mean volume (Bld) [Entitic vol] 8.1 fL 7 - 12 fL [facility] Platelets (Bld) [#/Vol] 426 10*3/uL [facility] RBC (Bld) [#/Vol] 3.97 10*6/uL [facility] WBC corrected for nucl RBC Auto (Bld) [#/Vol] 8.4 [facility] COMPLETE BLOOD COUNTon 05-15 Erythrocyte distribution width (RBC) [Ratio] 12.9 % Normal 11.5-15.0 [facility] Comment on above: Performed By: #### C LUCERO, , THYR #### [facility] ([id number]) [address], [address] [place] [address] Hematocrit (Bld) [Volume fraction] 38.1 % Normal 35-47 [facility] Comment on above: Performed By: #### Shira BARKER, , THYR #### [facility] ([id number]) [address], [address] [place] [address] Hemoglobin (Bld) [Mass/Vol] 13.5 g/dL Normal 11.7-15.5 [facility] Comment on above: Performed By: #### Shira BARKER, , THYR #### [facility] ([id number]) [address], [address] [place] [address] MCH (RBC) [Entitic mass] 33.9 pg Normal 27-34 [facility] Comment on above: Performed By: #### Shira BARKER, , THYR #### [facility] ([id number]) [address], [address] [place] [address] MCHC (RBC) [Mass/Vol] 35.3 g/dL Normal 32-36 [facility] Comment on above: Performed By: #### Shira BARKER, , THYR #### [facility] ([id number]) [address], [address] [place] [address] MCV (RBC) [Entitic vol] 96 fL Normal 80-100 [facility] [place] Comment on above: Performed By: #### Shira BARKER, , THYR #### [facility] ([id number]) [address], [address] [place] [address] Platelet mean volume (Bld) [Entitic vol] 8.1 fL Normal 7-12 [facility] Comment on above: Performed By: #### C LUCERO, , THYR #### [facility] ([id number]) [address], [address] [place] [address] Platelets (Bld) [#/Vol] 426 10*3/uL Normal 150-450 [facility] Comment on above: Performed By: #### C LUCERO, , THYR #### [facility] ([id number]) [address], [address] [place] [address] RBC COUNT 3.97 X10E12/L Normal 3.80-5.20 [facility] Comment on above: Performed By: #### C LUCERO, , THYR #### [facility] ([id number]) [address], [address] [place] [address] WBC (Bld) [#/Vol] 8.4 10*3/uL Normal 4.0-11.0 [facility] Comment on above: Performed By: #### C LUCERO, , THYR #### [facility] ([id number]) [address], [address] [place] [address] COMPREHENSIVE METABOLIC PANE Brock 05-15-2024 Albumin [Mass/Vol] 4.2 g/dL Normal 3.2-5.3 [facility] Comment on above: Performed By: #### C LUCERO, , THYR #### [facility] ([id number]) [address], [address] [place] [address] ALP [Catalytic activity/Vol] 93 U/L Normal 39-130 [facility] Comment on above: Performed By: #### C LUCERO, , THYR #### [facility] ([id number]) [address], [address] [place] [address] ALT [Catalytic activity/Vol] 22 U/L Normal 0-31 [facility] Comment on above: Performed By: #### C LUCERO, , THYR #### [facility] ([id number]) [address], [address] [place] [address] Anion gap [Moles/Vol] 9 mmol/L Normal 5-15 [facility] Comment on above: Performed By: #### C LUCERO, , THYR #### [facility] ([id number]) [address], [address] [place] [address] AST [Catalytic activity/Vol] 27 U/L Normal 0-41 [facility] Comment on above: Performed By: #### Shira BARKER, , THYR #### [facility] ([id number]) [address], [address] [place] [address] Bilirubin [Mass/Vol] 0.5 mg/dL Normal 0.3-1.2 [facility] Comment on above: Performed By: #### Shira BARKER, , THYR #### [facility] ([id number]) [address], [address] [place] [address] Calcium [Mass/Vol] 9.8 mg/dL Normal 8.5-10.5 [facility] Comment on above: Performed By: #### C LUCERO, , THYR #### [facility] ([id number]) [address], [address] [place] [address] Chloride [Moles/Vol] 99 mmol/L Normal 98-109 [facility] Comment on above: Performed By: #### Shira BARKER, , THYR #### [facility] ([id number]) [address], [address] [place] [address] CO2 [Moles/Vol] 27 mmol/L Normal 22-32 [facility] Comment on above: Performed By: #### C LUCERO, , THYR #### [facility] ([id number]) [address], [address] [place] [address] Creatinine [Mass/Vol] 0.46 mg/dL Normal 0.40-1.00 [facility] Comment on above: Result Comment: METH OD TRACEABLE TO IDMS STANDARD Performed By: #### C LUCERO, , THYR #### [facility] ([id number]) [address], [address] [place] [address] eGFR (CKD-EPI) NON-RACE DEPENDENT >90 Normal >59 [facility] Comment on above: Result Comment: Reported eGFR is based on the CKD-EPI 2020 equation that does not use a race coefficient. Performed By: #### C LUCERO, , THYR #### [facility] ([id number]) [address], [address] [place] [address] Glucose [Mass/Vol] 92 mg/dL Normal 65-99 [facility] Comment on above: Performed By: #### Shira BARKER, , THYR #### [facility] ([id number]) [address], [address] [place] [address] Potassium [Moles/Vol] 3.9 mmol/L Normal 3.5-5.0 [facility] Comment on above: Performed By: #### C LUCERO, , THYR #### [facility] ([id number]) [address], [address] [place] [address] Protein [Mass/Vol] 7.4 g/dL Normal 6.0-8.0 [facility] Comment on above: Performed By: #### Shira BARKER, , THYR #### [facility] ([id number]) [address], [address] [place] [address] Sodium [Moles/Vol] 135 mmol/L Normal 134-146 [facility] Comment on above: Performed By: #### C LUCERO, 49430-9, THYR #### [facility] ([id number]) [address], [address] [place] [address] Urea nitrogen [Mass/Vol] 6 mg/dL Normal 5-27 [facility] Comment on above: Performed By: #### C LUCERO, 93863-8, THYR #### [facility] ([id number]) [address], [address] [place] [address] Calcium.ionized (Bld) [Mass/ Vol]on 05-15-2024 [facility] IONIZED CALCIUM 5.0 mg/dL Normal 4.5-5.3 [facility] Comment on above: Performed By: #### Shira BARKER, 72645-0, THYR #### [facility] ([id number]) [address], [address] [place] [address] Comprehensive metabolic pane brock 05-15-2024 Albumin [Mass/Vol] 4.2 g/dL 3.2 - 5.3 g/dL [facility] ALP [Catalytic activity/Vol] 93 U/L 39 - 130 U/L [facility] ALT No additional P-5'-P [Catalytic activity/Vol] 22 U/L 0 - 31 U/L [facility] Anion gap [Moles/Vol] 9 mmol/L 5 - 15 mmol/L [facility] AST [Catalytic activity/Vol] 27 U/L 0 - 41 U/L [facility] Bilirubin [Mass/Vol] 0.5 mg/dL 0.3 - 1 .2 mg/dL [facility] Calcium [Mass/Vol] 9.8 mg/dL 8.5 - 10. 5 mg/dL [facility] Chloride [Moles/Vol] 99 mmol/L 98 - 10 9 mmol/L [facility] CO2 [Moles/Vol] 27 mmol/L 22 - 32 mmol/L [facility] Creatinine [Mass/Vol] 0.46 mg/dL 0.40 - 1.00 mg/dL [facility] eGFR (CKD-EPI)non-race dependent - PINF [facility] Glucose [Mass/Vol] 92 mg/dL 65 - 99 mg/dL [facility] Potassium [Moles/Vol] 3.9 mmol/L 3.5 - 5.0 mmol/L [facility] Protein [Mass/Vol] 7.4 g/dL 6.0 - 8.0 g/dL [facility] Sodium [Moles/Vol] 135 mmol/L 134 - 146 mmol/L [facility] Urea nitrogen [Mass/Vol] 6 mg/dL 5 - 27 mg/dL [facility] Ionized calciumon 05-15-2024 Calcium.ionized (Bld) [Mass/Vol] 5 mg/dL 4.5 - 5.3 mg/dL [facility] MAGNESIUMon 05-15-2024 Magnesium [Mass/Vol] 2.1 mg/dL Normal 1.8-2.6 [facility] Comment on above: Performed By: #### C LUCERO, 17646-9, THYR #### [facility] ([id number]) [address] [place] [address], [address] [address] Magnesiumon 05-15-2024 Magnesium [Mass/Vol] 2.1 mg/dL 1.8 - 2 .6 mg/dL [facility] No Panel Informationon 05-15 [facility] PHOSPHORUSon 05-15-2024 Phosphate [Mass/Vol] 3.9 mg/dL Normal 2.4-4.9 [facility] Comment on above: Performed By: #### Shira BARKER, 83401-8, THYR #### [facility] ([id number]) [address] [place] [address], [facility] [address] [place] [address] Phosphoruson 05-15-2024 Phosphate [Mass/Vol] 3.9 mg/dL 2.4 - 4 .9 mg/dL [facility] CBC without diffon Erythrocyte distribution width (RBC) [Ratio] 13 % 11.5 - 15.0 % [facility] Hematocrit (Bld) [Volume fraction] 35.3 % 35 - 47 % [facility] Hemoglobin (Bld) [Mass/Vol] 12.3 g/dL 11.7 - 15.5 g/dL [facility] Interpretation and review of laboratory results Abnormal [facility] MCH (RBC) [Entitic mass] 33.2 pg 27 - 34 pg [facility] MCHC (RBC) [Mass/Vol] 34.9 g/dL 32 - 36 g/dL [facility] MCV (RBC) [Entitic vol] 95 fL 80 - 100 fL [facility] Platelet mean volume (Bld) [Entitic vol] 8.2 fL 7 - 12 fL [facility] Platelets (Bld) [#/Vol] 334 10*3/uL [facility] RBC (Bld) [#/Vol] 3.71 10*6/uL Low [facility] WBC corrected for nucl RBC Auto (Bld) [#/Vol] 7.7 [facility] COMPLETE BLOOD COUNTon 05-14 Erythrocyte distribution width (RBC) [Ratio] 13.0 % Normal 11.5-15.0 [facility] Comment on above: Performed By: #### C LUCERO, 69252-7, THYR #### [facility] ([id number]) [address], [address] [place] [address] Hematocrit (Bld) [Volume fraction] 35.3 % Normal 35-47 [facility] Comment on above: Performed By: #### C LUCERO, , THYR #### [facility] ([id number]) [address], [address] [place] [address] Hemoglobin (Bld) [Mass/Vol] 12.3 g/dL Normal 11.7-15.5 [facility] Comment on above: Performed By: #### C LUCERO, , THYR #### [facility] ([id number]) [address], [address] [place] [address] MCH (RBC) [Entitic mass] 33.2 pg Normal 27-34 [facility] Comment on above: Performed By: #### C LUCERO, , THYR #### [facility] ([id number]) [address], [address] [place] [address] MCHC (RBC) [Mass/Vol] 34.9 g/dL Normal 32-36 [facility] Comment on above: Performed By: #### C LUCERO, , THYR #### [facility] ([id number]) [address], [facility] [address] [place] [address] MCV (RBC) [Entitic vol] 95 fL Normal 80-100 [facility] Comment on above: Performed By: #### Shira BARKER, , THYR #### [facility] ([id number]) [address], [address] [place] [address] Platelet mean volume (Bld) [Entitic vol] 8.2 fL Normal 7-12 [facility] Comment on above: Performed By: #### Shira BARKER, , THYR #### [facility] ([id number]) [address] [address] [place] [address] Platelets (Bld) [#/Vol] 334 10*3/uL Normal 150-450 [facility] Comment on above: Performed By: #### Shira BARKER, , THYR #### [facility] ([id number]) [address], [facility] [address] [place] [address] RBC COUNT 3.71 X10E12/L Low 3.80-5.20 [facility] Comment on above: Performed By: #### Shira BARKER, , THYR #### [facility] ([id number]) [address], [facility] [address] [place] [address] WBC (Bld) [#/Vol] 7.7 10*3/uL Normal 4.0-11.0 [facility] Comment on above: Performed By: #### C LUCERO, , THYR #### [facility] ([id number]) [address] [place] [address] COMPREHENSIVE METABOLIC PANE Borck 05-14-2024 Albumin [Mass/Vol] 3.6 g/dL Normal 3.2-5.3 [facility] Comment on above: Performed By: #### C LUCERO, , THYR #### [facility] ([id number]) [address], [address] [place] [address] ALP [Catalytic activity/Vol] 83 U/L Normal 39-130 [facility] Comment on above: Performed By: #### Sihra BARKER, , THYR #### [facility] ([id number]) [address], [address] [place] [address] ALT [Catalytic activity/Vol] 19 U/L Normal 0-31 [facility] Comment on above: Performed By: #### Shira BARKER, , THYR #### [facility] ([id number]) [address], [address] [place] [address] Anion gap [Moles/Vol] 9 mmol/L Normal 5-15 [facility] Comment on above: Performed By: #### Shira BARKER, , THYR #### [facility] ([id number]) [address], [address] [place] [address] AST [Catalytic activity/Vol] 19 U/L Normal 0-41 [facility] Comment on above: Performed By: #### Shira BARKER, , THYR #### [facility] ([id number]) [address], [address] [place] [address] Bilirubin [Mass/Vol] 0.4 mg/dL Normal 0.3-1.2 [facility] Comment on above: Performed By: #### C LUCERO, , THYR #### [facility] ([id number]) [address], [address] [place] [address] Calcium [Mass/Vol] 8.9 mg/dL Normal 8.5-10.5 [facility] Comment on above: Performed By: #### C LUCERO, , THYR #### [facility] ([id number]) [address], [address] [place] [address] Chloride [Moles/Vol] 101 mmol/L Normal 98-109 [facility] Comment on above: Performed By: #### Shira BARKER, , THYR #### [facility] ([id number]) [address], [address] [place] [address] CO2 [Moles/Vol] 25 mmol/L Normal 22-32 [facility] Comment on above: Performed By: #### Shira BARKER, , THYR #### [facility] ([id number]) [address], [address] [place] [address] Creatinine [Mass/Vol] 0.52 mg/dL Normal 0.40-1.00 [facility] Comment on above: Result Comment: METH OD TRACEABLE TO IDMS STANDARD Performed By: #### Shira BARKER, , THYR #### [facility] ([id number]) [address], [address] [place] [address] eGFR (CKD-EPI) NON-RACE DEPENDENT >90 Normal >59 [facility] Comment on above: Result Comment: Reported eGFR is based on the CKD-EPI 2020 equation that does not use a race coefficient. Performed By: #### C LUCERO, , THYR #### [facility] ([id number]) [address], [address] [place] [address] Glucose [Mass/Vol] 100 mg/dL High 65-99 [facility] Comment on above: Performed By: #### C LUCERO, , THYR #### [facility] ([id number]) [address], [address] [place] [address] Potassium [Moles/Vol] 4.0 mmol/L Normal 3.5-5.0 [facility] Comment on above: Performed By: #### Shira BARKER, , THYR #### [facility] ([id number]) [address], [address] [place] [address] Protein [Mass/Vol] 6.7 g/dL Normal 6.0-8.0 [facility] Comment on above: Performed By: #### Shira BARKER, , THYR #### [facility] ([id number]) [address], [address] [place] [address] Sodium [Moles/Vol] 135 mmol/L Normal 134-146 [facility] Comment on above: Performed By: #### Shira BARKER, , THYR #### [facility] ([id number]) [address], [address] [place] [address] Urea nitrogen [Mass/Vol] 7 mg/dL Normal 5-27 [facility] Comment on above: Performed By: #### Shira BARKER, , THYR #### [facility] ([id number]) [address], [address] [place] [address] Calcium.ionized (Bld) [Mass/ Vol]on 05-14-2024 Interpretation and review of laboratory results Abnormal [facility] IONIZED CALCIUM 4.2 mg/dL Low 4.5-5.3 [facility] Comment on above: Performed By: #### Shira BARKER, , THYR #### [facility] ([id number]) [address], [address] [place] [address] Comprehensive metabolic pane brock 05-14-2024 Albumin [Mass/Vol] 3.6 g/dL 3.2 - 5.3 g/dL [facility] ALP [Catalytic activity/Vol] 83 U/L 39 - 130 U/L [facility] ALT No additional P-5'-P [Catalytic activity/Vol] 19 U/L 0 - 31 U/L [facility] Anion gap [Moles/Vol] 9 mmol/L 5 - 15 mmol/L [facility] AST [Catalytic activity/Vol] 19 U/L 0 - 41 U/L [facility] Bilirubin [Mass/Vol] 0.4 mg/dL 0.3 - 1 .2 mg/dL [facility] Calcium [Mass/Vol] 8.9 mg/dL 8.5 - 10. 5 mg/dL [facility] Chloride [Moles/Vol] 101 mmol/L 98 - 10 9 mmol/L [facility] CO2 [Moles/Vol] 25 mmol/L 22 - 32 mmol/L [facility] Creatinine [Mass/Vol] 0.52 mg/dL 0.40 - 1.00 mg/dL [facility] eGFR (CKD-EPI)non-race dependent - PINF [facility] Glucose [Mass/Vol] 100 mg/dL High 65 - 99 mg/dL [facility] Interpretation and review of laboratory results Abnormal [facility] Potassium [Moles/Vol] 4 mmol/L 3.5 - 5.0 mmol/L [facility] Protein [Mass/Vol] 6.7 g/dL 6.0 - 8.0 g/dL [facility] Sodium [Moles/Vol] 135 mmol/L 134 - 146 mmol/L [facility] Urea nitrogen [Mass/Vol] 7 mg/dL 5 - 27 mg/dL [facility] Glucose Glucometer (BldC) [M ass/Vol]on 05-14-2024 Glucose [Mass/Vol] 86 mg/dL 65 - 99 mg/dL [facility] Glucose [Mass/Vol] 86 mg/dL Normal 65-99 [facility] Ionized calciumon 05-14-2024 Calcium.ionized (Bld) [Mass/Vol] 4.2 mg/dL Low 4.5 - 5.3 mg/dL [facility] MAGNESIUMon 05-14-2024 Magnesium [Mass/Vol] 2.0 mg/dL Normal 1.8-2.6 [facility] Comment on above: Performed By: #### C , 66758-8, THYR #### [facility] ([id number]) [address], [address] [place] [address] Magnesiumon 05-14-2024 Magnesium [Mass/Vol] 2 mg/dL 1.8 - 2 .6 mg/dL [facility] No Panel Informationon 05-14 [facility] PHOSPHORUSon 05-14-2024 Phosphate [Mass/Vol] 4.3 mg/dL Normal 2.4-4.9 [facility] Comment on above: Performed By: #### C , 59228-9, THYR #### [facility] ([id number]) [address], [address] [place] [address] Phosphoruson 05-14-2024 Phosphate [Mass/Vol] 4.3 mg/dL 2.4 - 4 .9 mg/dL [facility] Thiamin (Vitamin B1), WBon 0 05-14-2024 Thiamine (Bld) [Moles/Vol] 68 nmol/L Low 70 - 180 nmol/L [facility] Thiamine (Bld) [Moles/Vol] 56 nmol/L Low 70 - 180 nmol/L [facility] Thiamine (Bld) [Moles/Vol]on 05-14-2024 Interpretation and review of laboratory results Abnormal [facility] Interpretation and review of laboratory results Abnormal [facility] CBC without diffon Erythrocyte distribution width (RBC) [Ratio] 12.8 % 11.5 - 15.0 % [facility] Hematocrit (Bld) [Volume fraction] 32.9 % Low 35 - 47 % [facility] Hemoglobin (Bld) [Mass/Vol] 11.8 g/dL 11.7 - 15.5 g/dL [facility] Interpretation and review of laboratory results Abnormal [facility] MCH (RBC) [Entitic mass] 33.8 pg 27 - 34 pg [facility] MCHC (RBC) [Mass/Vol] 35.8 g/dL 32 - 36 g/dL [facility] MCV (RBC) [Entitic vol] 94 fL 80 - 100 fL [facility] Platelet mean volume (Bld) [Entitic vol] 8.3 fL 7 - 12 fL [facility] Platelets (Bld) [#/Vol] 305 10*3/uL [facility] RBC (Bld) [#/Vol] 3.49 10*6/uL Low [facility] WBC corrected for nucl RBC Auto (Bld) [#/Vol] 7.9 [facility] COMPLETE BLOOD COUNTon 05-13 Erythrocyte distribution width (RBC) [Ratio] 12.8 % Normal 11.5-15.0 [facility] Comment on above: Performed By: #### C LUCERO, , THYR #### [facility] ([id number]) [address], [address] [place] [address] Hematocrit (Bld) [Volume fraction] 32.9 % Low 35-47 [facility] Comment on above: Performed By: #### Shira BARKER, , THYR #### [facility] ([id number]) [address], [address] [place] [address] Hemoglobin (Bld) [Mass/Vol] 11.8 g/dL Normal 11.7-15.5 [facility] Comment on above: Performed By: #### Shira BARKER, , THYR #### [facility] ([id number]) [address], [address] [place] [address] MCH (RBC) [Entitic mass] 33.8 pg Normal 27-34 [facility] Comment on above: Performed By: #### Shira BARKER, , THYR #### [facility] ([id number]) [address], [address] [place] [address] MCHC (RBC) [Mass/Vol] 35.8 g/dL Normal 32-36 [facility] Comment on above: Performed By: #### C LUCERO, , THYR #### [facility] ([id number]) [address], [address] [place] [address] MCV (RBC) [Entitic vol] 94 fL Normal 80-100 [facility] Comment on above: Performed By: #### C LUCERO, , THYR #### [facility] ([id number]) [address], [address] [place] [address] Platelet mean volume (Bld) [Entitic vol] 8.3 fL Normal 7-12 [facility] Comment on above: Performed By: #### Shira BARKER, , THYR #### [facility] ([id number]) [address], [address] [place] [address] Platelets (Bld) [#/Vol] 305 10*3/uL Normal 150-450 [facility] Comment on above: Performed By: #### C LUCERO, , THYR #### [facility] ([id number]) [address], [address] [place] [address] RBC COUNT 3.49 X10E12/L Low 3.80-5.20 [facility] Comment on above: Performed By: #### C LUCERO, , THYR #### [facility] ([id number]) [address], [address] [place] [address] WBC (Bld) [#/Vol] 7.9 10*3/uL Normal 4.0-11.0 [facility] Comment on above: Performed By: #### C LUCERO, , THYR #### [facility] ([id number]) [address], [address] [place] [address] COMPREHENSIVE METABOLIC PANE Brock 05-13-2024 Albumin [Mass/Vol] 3.4 g/dL Normal 3.2-5.3 [facility] Comment on above: Performed By: #### C LUCERO, , THYR #### [facility] ([id number]) [address], [address] [place], [place] [address] ALP [Catalytic activity/Vol] 85 U/L Normal 39-130 [facility] Comment on above: Performed By: #### C LUCERO, , THYR #### [facility] ([id number]) [address], [address] [place], [place] [address] ALT [Catalytic activity/Vol] 14 U/L Normal 0-31 [facility] Comment on above: Performed By: #### Shira BARKER, , THYR #### [facility] ([id number]) [address], [address] [place], [place] [address] Anion gap [Moles/Vol] 8 mmol/L Normal 5-15 [facility] Comment on above: Performed By: #### Shira BARKER, , THYR #### [facility] ([id number]) [address], [address] [place], [place] [address] AST [Catalytic activity/Vol] 16 U/L Normal 0-41 [facility] Comment on above: Performed By: #### Shira BARKER, , THYR #### [facility] ([id number]) [address], [address] [place], [place] [address] Bilirubin [Mass/Vol] 0.6 mg/dL Normal 0.3-1.2 [facility] Comment on above: Performed By: #### Shira BARKER, , THYR #### [facility] ([id number]) [address], [address] [place], [place] [address] Calcium [Mass/Vol] 8.6 mg/dL Normal 8.5-10.5 [facility] Comment on above: Performed By: #### C LUCERO, , THYR #### [facility] ([id number]) [address], [address] [place] [address] Chloride [Moles/Vol] 100 mmol/L Normal 98-109 [facility] Comment on above: Performed By: #### C LUCERO, , THYR #### [facility] ([id number]) [address], [address] [place] [address] CO2 [Moles/Vol] 25 mmol/L Normal 22-32 [facility] Comment on above: Performed By: #### Shira BARKER, , THYR #### [facility] ([id number]) [address], [address] [place] [address] Creatinine [Mass/Vol] 0.42 mg/dL Normal 0.40-1.00 [facility] Comment on above: Result Comment: METH OD TRACEABLE TO IDMS STANDARD Performed By: #### C LUCERO, , THYR #### [facility] ([id number]) [address], [address] [place] [address] eGFR (CKD-EPI) NON-RACE DEPENDENT >90 Normal >59 [facility] Comment on above: Result Comment: Reported eGFR is based on the CKD-EPI 1 equation that does not use a race coefficient. Performed By: #### C LUCERO, , THYR #### [facility] ([id number]) [address], [address] [place] [address] Glucose [Mass/Vol] 94 mg/dL Normal 65-99 [facility] Comment on above: Performed By: #### Shira BARKER, , THYR #### [facility] ([id number]) [address], [address] [place] [address] Potassium [Moles/Vol] 3.5 mmol/L Normal 3.5-5.0 [facility] Comment on above: Performed By: #### Shira BARKER, , THYR #### [facility] ([id number]) [address], [address] [place] [address] Protein [Mass/Vol] 6.0 g/dL Normal 6.0-8.0 [facility] Comment on above: Performed By: #### Shira BARKER, , THYR #### [facility] ([id number]) [address], [address] [place] [address] Sodium [Moles/Vol] 133 mmol/L Low 134-146 [facility] Comment on above: Performed By: #### Shira BARKER, , THYR #### [facility] ([id number]) [address], [address] [place] [address] Urea nitrogen [Mass/Vol] 6 mg/dL Normal 5-27 [facility] Comment on above: Performed By: #### Shira BARKER, , THYR #### [facility] ([id number]) [address], [address] [place] [address] Calcium.ionized (Bld) [Mass/ Vol]on 05-13-2024 [facility] IONIZED CALCIUM 4.6 mg/dL Normal 4.5-5.3 [facility] Comment on above: Performed By: #### Shira BARKER, , THYR #### [facility] ([id number]) [address], [address] [place] [address] Comprehensive metabolic pane brock 05-13-2024 Albumin [Mass/Vol] 3.4 g/dL 3.2 - 5.3 g/dL [facility] ALP [Catalytic activity/Vol] 85 U/L 39 - 130 U/L [facility] ALT No additional P-5'-P [Catalytic activity/Vol] 14 U/L 0 - 31 U/L [facility] Anion gap [Moles/Vol] 8 mmol/L 5 - 15 mmol/L [facility] AST [Catalytic activity/Vol] 16 U/L 0 - 41 U/L [facility] Bilirubin [Mass/Vol] 0.6 mg/dL 0.3 - 1 .2 mg/dL [facility] Calcium [Mass/Vol] 8.6 mg/dL 8.5 - 10. 5 mg/dL [facility] Chloride [Moles/Vol] 100 mmol/L 98 - 10 9 mmol/L [facility] CO2 [Moles/Vol] 25 mmol/L 22 - 32 mmol/L [facility] Creatinine [Mass/Vol] 0.42 mg/dL 0.40 - 1.00 mg/dL [facility] eGFR (CKD-EPI)non-race dependent - PINF [facility] Glucose [Mass/Vol] 94 mg/dL 65 - 99 mg/dL [facility] Interpretation and review of laboratory results Abnormal [facility] Potassium [Moles/Vol] 3.5 mmol/L 3.5 - 5.0 mmol/L [facility] Protein [Mass/Vol] 6 g/dL 6.0 - 8.0 g/dL [facility] Sodium [Moles/Vol] 133 mmol/L Low 134 - 146 mmol/L [facility] Urea nitrogen [Mass/Vol] 6 mg/dL 5 - 27 mg/dL [facility] ELECTROLYTESon 05-13-2024 Anion gap [Moles/Vol] 9 mmol/L Normal 5-15 [facility] Comment on above: Performed By: #### C , 30342-4, THYR #### [facility] ([id number]) [address], [address] [place] [address] Chloride [Moles/Vol] 97 mmol/L Low 98-109 [facility] Comment on above: Performed By: #### C LUCERO, 12315-0, THYR #### [facility] ([id number]) [address], [address] [place] [address] CO2 [Moles/Vol] 26 mmol/L Normal 22-32 [facility] Comment on above: Performed By: #### C LUCERO, , THYR #### [facility] ([id number]) [address], [address] [place] [address] Potassium [Moles/Vol] 3.8 mmol/L Normal 3.5-5.0 [facility] Comment on above: Performed By: #### Shira BARKER, , THYR #### [facility] ([id number]) [address], [address] [place] [address] Sodium [Moles/Vol] 132 mmol/L Low 134-146 [facility] Comment on above: Performed By: #### Shira BARKER, , THYR #### [facility] ([id number]) [address], [address] [place] [address] Electrolyte panelon 05-14-19 Anion gap [Moles/Vol] 9 mmol/L 5 - 15 mmol/L [facility] Chloride [Moles/Vol] 97 mmol/L Low 98 - 10 9 mmol/L [facility] CO2 [Moles/Vol] 26 mmol/L 22 - 32 mmol/L [facility] Interpretation and review of laboratory results Abnormal [facility] Potassium [Moles/Vol] 3.8 mmol/L 3.5 - 5.0 mmol/L [facility] Sodium [Moles/Vol] 132 mmol/L Low 134 - 146 mmol/L [facility] Ionized calciumon 05-13-2024 Calcium.ionized (Bld) [Mass/Vol] 4.6 mg/dL 4.5 - 5.3 mg/dL [facility] MAGNESIUMon 05-13-2024 Magnesium [Mass/Vol] 2.1 mg/dL Normal 1.8-2.6 [facility] Comment on above: Performed By: #### C LUCERO, , THYR #### [facility] ([id number]) [address], [address] [place] [address] Magnesiumon 05-13-2024 Magnesium [Mass/Vol] 2.1 mg/dL 1.8 - 2 .6 mg/dL [facility] No Panel Informationon 05-13 [facility] PHOSPHORUSon 05-13-2024 Phosphate [Mass/Vol] 4.0 mg/dL Normal 2.4-4.9 [facility] Comment on above: Performed By: #### [place], [address]-3, THYR #### [facility] ([id number]) [address], [address] [place] [address] Phosphoruson 05-13-2024 Phosphate [Mass/Vol] 4 mg/dL 2.4 - 4 .9 mg/dL [facility] CBC without diffon Erythrocyte distribution width (RBC) [Ratio] 12.7 % 11.5 - 15.0 % [facility] Hematocrit (Bld) [Volume fraction] 33.8 % Low 35 - 47 % [facility] Hemoglobin (Bld) [Mass/Vol] 11.9 g/dL 11.7 - 15.5 g/dL [facility] Interpretation and review of laboratory results Abnormal [facility] MCH (RBC) [Entitic mass] 33.6 pg 27 - 34 pg [facility] MCHC (RBC) [Mass/Vol] 35.2 g/dL 32 - 36 g/dL [facility] MCV (RBC) [Entitic vol] 96 fL 80 - 100 fL [facility] Platelet mean volume (Bld) [Entitic vol] 8.6 fL 7 - 12 fL [facility] Platelets (Bld) [#/Vol] 262 10*3/uL [facility] RBC (Bld) [#/Vol] 3.53 10*6/uL Low [facility] WBC corrected for nucl RBC Auto (Bld) [#/Vol] 7.4 [facility] COMPLETE BLOOD COUNTon 05-12 Erythrocyte distribution width (RBC) [Ratio] 12.7 % Normal 11.5-15.0 [facility] Comment on above: Performed By: #### C LUCERO, , THYR #### [facility] ([id number]) [address], [address] [place] [address] Hematocrit (Bld) [Volume fraction] 33.8 % Low 35-47 [facility] Comment on above: Performed By: #### C LUCERO, , THYR #### [facility] ([id number]) [address], [address] [place] [address] Hemoglobin (Bld) [Mass/Vol] 11.9 g/dL Normal 11.7-15.5 [facility] Comment on above: Performed By: #### C LUCERO, , THYR #### [facility] ([id number]) [address], [address] [place] [address] MCH (RBC) [Entitic mass] 33.6 pg Normal 27-34 [facility] Comment on above: Performed By: #### C LUCERO, , THYR #### [facility] ([id number]) [address], [address] [place] [address] MCHC (RBC) [Mass/Vol] 35.2 g/dL Normal 32-36 [facility] Comment on above: Performed By: #### C LUCERO, , THYR #### [facility] ([id number]) [address], [address] [place] [address] MCV (RBC) [Entitic vol] 96 fL Normal 80-100 [facility] Comment on above: Performed By: #### C LUCERO, , THYR #### [facility] ([id number]) [address], [address] [place] [address] Platelet mean volume (Bld) [Entitic vol] 8.6 fL Normal 7-12 [facility] Comment on above: Performed By: #### C LUCERO, , THYR #### [facility] ([id number]) [address], [address] [place] [address] Platelets (Bld) [#/Vol] 262 10*3/uL Normal 150-450 [facility] Comment on above: Performed By: #### C LUCERO, , THYR #### [facility] ([id number]) [address], [address] [place] [address] RBC COUNT 3.53 X10E12/L Low 3.80-5.20 [facility] Comment on above: Performed By: #### C LUCERO, , THYR #### [facility] ([id number]) [address], [address] [place] [address] WBC (Bld) [#/Vol] 7.4 10*3/uL Normal 4.0-11.0 [facility] Comment on above: Performed By: #### C LUCERO, , THYR #### [facility] ([id number]) [address], [address] [place] [address] COMPREHENSIVE METABOLIC PANE Brock 05-12-2024 Albumin [Mass/Vol] 3.2 g/dL Normal 3.2-5.3 [facility] Comment on above: Performed By: #### Shira BARKER, , THYR #### [facility] ([id number]) [address], [address] [place] [address] ALP [Catalytic activity/Vol] 87 U/L Normal 39-130 [facility] Comment on above: Performed By: #### C LUCERO, , THYR #### [facility] ([id number]) [address], [address] [place] [address] ALT [Catalytic activity/Vol] 17 U/L Normal 0-31 [facility] Comment on above: Performed By: #### C LUCERO, , THYR #### [facility] ([id number]) [address], [address] [place] [address] Anion gap [Moles/Vol] 8 mmol/L Normal 5-15 [facility] Comment on above: Performed By: #### C LUCERO, , THYR #### [facility] ([id number]) [address] [place] [address] AST [Catalytic activity/Vol] 22 U/L Normal 0-41 [facility] Comment on above: Performed By: #### Shira BARKER, , THYR #### [facility] ([id number]) [address], [address] [place] [address] Bilirubin [Mass/Vol] 0.6 mg/dL Normal 0.3-1.2 [facility] Comment on above: Performed By: #### Shira BARKER, , THYR #### [facility] ([id number]) [address], [address] [place] [address] Calcium [Mass/Vol] 8.4 mg/dL Low 8.5-10.5 [facility] Comment on above: Performed By: #### Shira BARKER, , THYR #### [facility] ([id number]) [address], [address] [place] [address] Chloride [Moles/Vol] 98 mmol/L Normal 98-109 [facility] Comment on above: Performed By: #### Shira BARKER, , THYR #### [facility] ([id number]) [address], [address] [place] [address] CO2 [Moles/Vol] 24 mmol/L Normal 22-32 [facility] Comment on above: Performed By: #### Shira BARKER, , THYR #### [facility] ([id number]) [address], [address] [place] [address] Creatinine [Mass/Vol] 0.46 mg/dL Normal 0.40-1.00 [facility] Comment on above: Result Comment: METH OD TRACEABLE TO IDMS STANDARD Performed By: #### C LUCERO, , THYR #### [facility] ([id number]) [address], [address] [place], [place] [address] eGFR (CKD-EPI) NON-RACE DEPENDENT >90 Normal >59 [facility] Comment on above: Result Comment: Reported eGFR is based on the CKD-EPI 2020 equation that does not use a race coefficient. Performed By: #### C LUCERO, , THYR #### [facility] ([id number]) [address], [address] [place] [address] Glucose [Mass/Vol] 98 mg/dL Normal 65-99 [facility] Comment on above: Performed By: #### Shira BARKER, , THYR #### [facility] ([id number]) [address], [address] [place] [address] Potassium [Moles/Vol] 4.0 mmol/L Normal 3.5-5.0 [facility] Comment on above: Performed By: #### Shira BARKER , THYR #### [facility] ([id number]) [address] [place], [place] [address] Protein [Mass/Vol] 6.0 g/dL Normal 6.0-8.0 [facility] Comment on above: Performed By: #### Shira BARKER , THYR #### [facility] ([id number]) [address], [address] [place] [address] Sodium [Moles/Vol] 130 mmol/L Low 134-146 [facility] Comment on above: Performed By: #### Shira BARKER, , THYR #### [facility] ([id number]) [address], [address] [place] [address] Urea nitrogen [Mass/Vol] 6 mg/dL Normal 5-27 [facility] Comment on above: Performed By: #### Shira BARKER, 66701-3, THYR #### [facility] ([id number]) [address] [place] [address] Calcium.ionized (Bld) [Mass/ Vol]on 05-12-2024 [facility] IONIZED CALCIUM 4.5 mg/dL Normal 4.5-5.3 [facility] Comment on above: Performed By: #### Shira BARKER, 54593-6, THYR #### [facility] ([id number]) [address], [address] [place] [address] Comprehensive metabolic pane brock 05-12-2024 Albumin [Mass/Vol] 3.2 g/dL 3.2 - 5.3 g/dL [facility] ALP [Catalytic activity/Vol] 87 U/L 39 - 130 U/L [facility] ALT No additional P-5'-P [Catalytic activity/Vol] 17 U/L 0 - 31 U/L [facility] Anion gap [Moles/Vol] 8 mmol/L 5 - 15 mmol/L [facility] AST [Catalytic activity/Vol] 22 U/L 0 - 41 U/L [facility] Bilirubin [Mass/Vol] 0.6 mg/dL 0.3 - 1 .2 mg/dL [facility] Calcium [Mass/Vol] 8.4 mg/dL Low 8.5 - 10. 5 mg/dL [facility] Chloride [Moles/Vol] 98 mmol/L 98 - 10 9 mmol/L [facility] CO2 [Moles/Vol] 24 mmol/L 22 - 32 mmol/L [facility] Creatinine [Mass/Vol] 0.46 mg/dL 0.40 - 1.00 mg/dL [facility] eGFR (CKD-EPI)non-race dependent - PINF [facility] Glucose [Mass/Vol] 98 mg/dL 65 - 99 mg/dL [facility] Interpretation and review of laboratory results Abnormal [facility] Potassium [Moles/Vol] 4 mmol/L 3.5 - 5.0 mmol/L [facility] Protein [Mass/Vol] 6 g/dL 6.0 - 8.0 g/dL [facility] Sodium [Moles/Vol] 130 mmol/L Low 134 - 146 mmol/L [facility] Urea nitrogen [Mass/Vol] 6 mg/dL 5 - 27 mg/dL [facility] ELECTROLYTESon 05-12-2024 Anion gap [Moles/Vol] 9 mmol/L Normal 5-15 [facility] Comment on above: Performed By: #### C LUCERO, , THYR #### [facility] ([id number]) [address], [address] [place] [address] Chloride [Moles/Vol] 99 mmol/L Normal 98-109 [facility] Comment on above: Performed By: #### Shira BARKER, , THYR #### [facility] ([id number]) [address], [address] [place] [address] CO2 [Moles/Vol] 24 mmol/L Normal 22-32 [facility] Comment on above: Performed By: #### Shira BARKER, , THYR #### [facility] ([id number]) [address], [address] [place] [address] Potassium [Moles/Vol] 4.4 mmol/L Normal 3.5-5.0 [facility] Comment on above: Performed By: #### Shira BARKER, , THYR #### [facility] ([id number]) [address], [address] [place] [address] Sodium [Moles/Vol] 132 mmol/L Low 134-146 [facility] Comment on above: Performed By: #### Shira BARKER, , THYR #### [facility] ([id number]) [address] [place] [address] Anion gap [Moles/Vol] 8 mmol/L Normal 5-15 [facility] Comment on above: Performed By: #### Shira BARKER, , THYR #### [facility] ([id number]) [address], [address] [place] [address] Chloride [Moles/Vol] 98 mmol/L Normal 98-109 [facility] Comment on above: Performed By: #### Shira BARKER, , THYR #### [facility] ([id number]) [address], [address] [place] [address] CO2 [Moles/Vol] 25 mmol/L Normal 22-32 [facility] Comment on above: Performed By: #### Shira BARKER, , THYR #### [facility] ([id number]) [address], [address] [place] [address] Potassium [Moles/Vol] 4.0 mmol/L Normal 3.5-5.0 [facility] Comment on above: Performed By: #### Shira BARKER, , THYR #### [facility] ([id number]) [address], [address] [place] [address] Sodium [Moles/Vol] 131 mmol/L Low 134-146 [facility] Comment on above: Performed By: #### Shira BARKER, , THYR #### [facility] ([id number]) [address], [address] [place] [address] Electrolyte panelon 05-13-19 25 Anion gap [Moles/Vol] 9 mmol/L 5 - 15 mmol/L [facility] Chloride [Moles/Vol] 99 mmol/L 98 - 10 9 mmol/L [facility] CO2 [Moles/Vol] 24 mmol/L 22 - 32 mmol/L [facility] Interpretation and review of laboratory results Abnormal [facility] Potassium [Moles/Vol] 4.4 mmol/L 3.5 - 5.0 mmol/L [facility] Sodium [Moles/Vol] 132 mmol/L Low 134 - 146 mmol/L [facility] Anion gap [Moles/Vol] 8 mmol/L 5 - 15 mmol/L [facility] Chloride [Moles/Vol] 98 mmol/L 98 - 10 9 mmol/L [facility] CO2 [Moles/Vol] 25 mmol/L 22 - 32 mmol/L [facility] Interpretation and review of laboratory results Abnormal [facility] Potassium [Moles/Vol] 4 mmol/L 3.5 - 5.0 mmol/L [facility] Sodium [Moles/Vol] 131 mmol/L Low 134 - 146 mmol/L [facility] Ionized calciumon 05-12-2024 Calcium.ionized (Bld) [Mass/Vol] 4.5 mg/dL 4.5 - 5.3 mg/dL [facility] MAGNESIUMon 05-12-2024 Magnesium [Mass/Vol] 2.9 mg/dL High 1.8-2.6 [facility] Comment on above: Performed By: #### Shira BARKER, 89133-5, THYR #### [facility] ([id number]) [address], [address] [place] [address] Magnesium [Mass/Vol] 1.8 mg/dL Normal 1.8-2.6 [facility] Comment on above: Performed By: #### Shira BARKER, 96156-6, THYR #### [facility] ([id number]) [address], [address] [place] [address] Magnesiumon 05-12-2024 Magnesium [Mass/Vol] 2.9 mg/dL High 1.8 - 2 .6 mg/dL [facility] Magnesium [Mass/Vol] 1.8 mg/dL 1.8 - 2 .6 mg/dL [facility] Magnesium [Mass/Vol]on 05-12 Interpretation and review of laboratory results Abnormal [facility] No Panel Informationon 05-12 [facility] [facility] PHOSPHORUSon 05-12-2024 Phosphate [Mass/Vol] 3.8 mg/dL Normal 2.4-4.9 [facility] Comment on above: Performed By: #### [place], [address]-1, THYR #### [facility] ([id number]) [address], [address] [place] [address] Phosphoruson 05-12-2024 Phosphate [Mass/Vol] 3.8 mg/dL 2.4 - 4 .9 mg/dL [facility] CBC without diffon Erythrocyte distribution width (RBC) [Ratio] 12.8 % 11.5 - 15.0 % [facility] Hematocrit (Bld) [Volume fraction] 31.3 % Low 35 - 47 % [facility] Hemoglobin (Bld) [Mass/Vol] 11 g/dL Low 11.7 - 15.5 g/dL [facility] Interpretation and review of laboratory results Abnormal [facility] MCH (RBC) [Entitic mass] 33.1 pg 27 - 34 pg [facility] MCHC (RBC) [Mass/Vol] 35.3 g/dL 32 - 36 g/dL [facility] MCV (RBC) [Entitic vol] 94 fL 80 - 100 fL [facility] Platelet mean volume (Bld) [Entitic vol] 8.7 fL 7 - 12 fL [facility] Platelets (Bld) [#/Vol] 250 10*3/uL [facility] RBC (Bld) [#/Vol] 3.34 10*6/uL Low [facility] WBC corrected for nucl RBC Auto (Bld) [#/Vol] 8.5 [facility] COMPLETE BLOOD COUNTon 05-11 Erythrocyte distribution width (RBC) [Ratio] 12.8 % Normal 11.5-15.0 [facility] Comment on above: Performed By: #### 8 9579-7 #### [facility] ([id number]) [address], [address] [place] [address] Hematocrit (Bld) [Volume fraction] 31.3 % Low 35-47 [facility] Comment on above: Performed By: #### 8 9579-7 #### [facility] ([id number]) [address], [address] [place] [address] Hemoglobin (Bld) [Mass/Vol] 11.0 g/dL Low 11.7-15.5 [facility] Comment on above: Performed By: #### 8 9579-7 #### [facility] ([id number]) [address], [address] [place] [address] MCH (RBC) [Entitic mass] 33.1 pg Normal 27-34 [facility] Comment on above: Performed By: #### 8 9579-7 #### [facility] ([id number]) [address], [address] [place] [address] MCHC (RBC) [Mass/Vol] 35.3 g/dL Normal 32-36 [facility] Comment on above: Performed By: #### 8 9579-7 #### [facility] ([id number]) [address], [address] [place] [address] MCV (RBC) [Entitic vol] 94 fL Normal 80-100 [facility] Comment on above: Performed By: #### 8 9579-7 #### [facility] ([id number]) [address], [address] [place] [address] Platelet mean volume (Bld) [Entitic vol] 8.7 fL Normal 7-12 [facility] Comment on above: Performed By: #### 8 9579-7 #### [facility] ([id number]) [address], [address] [place] [address] Platelets (Bld) [#/Vol] 250 10*3/uL Normal 150-450 [facility] Comment on above: Performed By: #### 8 9579-7 #### [facility] ([id number]) [address], [address] [place] [address] RBC COUNT 3.34 X10E12/L Low 3.80-5.20 [facility] Comment on above: Performed By: #### 8 9579-7 #### [facility] ([id number]) [address], [address] [place] [address] WBC (Bld) [#/Vol] 8.5 10*3/uL Normal 4.0-11.0 [facility] Comment on above: Performed By: #### 8 9579-7 #### [facility] ([id number]) [address], [address] [place] [address] COMPREHENSIVE METABOLIC PANE Brock 05-11-2024 Albumin [Mass/Vol] 3.0 g/dL Low 3.2-5.3 [facility] Comment on above: Performed By: #### C LUCERO, , THYR #### [facility] ([id number]) [address], [address] [place] [address] ALP [Catalytic activity/Vol] 96 U/L Normal 39-130 [facility] Comment on above: Performed By: #### C LUCERO, , THYR #### [facility] ([id number]) [address], [address] [place] [address] ALT [Catalytic activity/Vol] 17 U/L Normal 0-31 [facility] Comment on above: Performed By: #### C LUCERO, , THYR #### [facility] ([id number]) [address], [address] [place] [address] Anion gap [Moles/Vol] 8 mmol/L Normal 5-15 [facility] Comment on above: Performed By: #### C LUCERO, , THYR #### [facility] ([id number]) [address], [address] [place], [place] [address] AST [Catalytic activity/Vol] 24 U/L Normal 0-41 [facility] Comment on above: Performed By: #### C LUCERO, , THYR #### [facility] ([id number]) [address], [address] [place] [address] Bilirubin [Mass/Vol] 0.9 mg/dL Normal 0.3-1.2 [facility] Comment on above: Performed By: #### C LUCERO, , THYR #### [facility] ([id number]) [address], [address] [place], [place] [address] Calcium [Mass/Vol] 7.8 mg/dL Low 8.5-10.5 [facility] Comment on above: Performed By: #### Shira BARKER, , THYR #### [facility] ([id number]) [address], [address] [place] [address] Chloride [Moles/Vol] 96 mmol/L Low 98-109 [facility] Comment on above: Performed By: #### C LUCERO, , THYR #### [facility] ([id number]) [address], [address] [place] [address] CO2 [Moles/Vol] 24 mmol/L Normal 22-32 [facility] Comment on above: Performed By: #### Shira BARKER, , THYR #### [facility] ([id number]) [address], [address] [place] [address] Creatinine [Mass/Vol] 0.38 mg/dL Low 0.40-1.00 [facility] Comment on above: Result Comment: METH OD TRACEABLE TO IDMS STANDARD Performed By: #### C LUCERO, , THYR #### [facility] ([id number]) [address], [address] [place], [place] [address] eGFR (CKD-EPI) NON-RACE DEPENDENT >90 Normal >59 [facility] Comment on above: Result Comment: Reported eGFR is based on the CKD-EPI 2020 equation that does not use a race coefficient. Performed By: #### C LUCERO, , THYR #### [facility] ([id number]) [address], [address] [place], [place] [address] Glucose [Mass/Vol] 87 mg/dL Normal 65-99 [facility] Comment on above: Performed By: #### Shira BARKER, , THYR #### [facility] ([id number]) [address], [address] [place] [address] Potassium [Moles/Vol] 3.9 mmol/L Normal 3.5-5.0 [facility] Comment on above: Performed By: #### Shira BARKER , THYR #### [facility] ([id number]) [address], [address] [place] [address] Protein [Mass/Vol] 5.5 g/dL Low 6.0-8.0 [facility] Comment on above: Performed By: #### Shira BARKER , THYR #### [facility] ([id number]) [address], [address] [place] [address] Sodium [Moles/Vol] 128 mmol/L Low 134-146 [facility] Comment on above: Performed By: #### Shira BARKER , THYR #### [facility] ([id number]) [address], [address] [place] [address] Urea nitrogen [Mass/Vol] 7 mg/dL Normal 5-27 [facility] Comment on above: Performed By: #### Shira BARKER, , THYR #### [facility] ([id number]) [address], [address] [place] [address] Calcium.ionized (Bld) [Mass/ Vol]on 05-11-2024 Interpretation and review of laboratory results Abnormal [facility] IONIZED CALCIUM 4.4 mg/dL Low 4.5-5.3 [facility] Comment on above: Performed By: #### 8 9579-7 #### [facility] ([id number]) [address], [address] [place] [address] Comprehensive metabolic pane brock 05-11-2024 Albumin [Mass/Vol] 3 g/dL Low 3.2 - 5.3 g/dL [facility] ALP [Catalytic activity/Vol] 96 U/L 39 - 130 U/L [facility] ALT No additional P-5'-P [Catalytic activity/Vol] 17 U/L 0 - 31 U/L [facility] Anion gap [Moles/Vol] 8 mmol/L 5 - 15 mmol/L [facility] AST [Catalytic activity/Vol] 24 U/L 0 - 41 U/L [facility] Bilirubin [Mass/Vol] 0.9 mg/dL 0.3 - 1 .2 mg/dL [facility] Calcium [Mass/Vol] 7.8 mg/dL Low 8.5 - 10. 5 mg/dL [facility] Chloride [Moles/Vol] 96 mmol/L Low 98 - 10 9 mmol/L [facility] CO2 [Moles/Vol] 24 mmol/L 22 - 32 mmol/L [facility] Creatinine [Mass/Vol] 0.38 mg/dL Low 0.40 - 1.00 mg/dL [facility] eGFR (CKD-EPI)non-race dependent - PINF [facility] Glucose [Mass/Vol] 87 mg/dL 65 - 99 mg/dL [facility] Interpretation and review of laboratory results Abnormal [facility] Potassium [Moles/Vol] 3.9 mmol/L 3.5 - 5.0 mmol/L [facility] Protein [Mass/Vol] 5.5 g/dL Low 6.0 - 8.0 g/dL [facility] Sodium [Moles/Vol] 128 mmol/L Low 134 - 146 mmol/L [facility] Urea nitrogen [Mass/Vol] 7 mg/dL 5 - 27 mg/dL [facility] ELECTROLYTESon 05-11-2024 Anion gap [Moles/Vol] 7 mmol/L Normal 5-15 [facility] Comment on above: Performed By: #### C LUCERO, , THYR #### [facility] ([id number]) [address], [address] [place] [address] Chloride [Moles/Vol] 96 mmol/L Low 98-109 [facility] Comment on above: Performed By: #### C LUCERO, , THYR #### [facility] ([id number]) [address], [address] [place] [address] CO2 [Moles/Vol] 24 mmol/L Normal 22-32 [facility] Comment on above: Performed By: #### Shira BARKER, , THYR #### [facility] ([id number]) [address], [address] [place] [address] Potassium [Moles/Vol] 4.1 mmol/L Normal 3.5-5.0 [facility] Comment on above: Performed By: #### Shira BARKER , THYR #### [facility] ([id number]) [address], [address] [place], [place] [address] Sodium [Moles/Vol] 127 mmol/L Low 134-146 [facility] Comment on above: Performed By: #### Shira BARKER , THYR #### [facility] ([id number]) [address], [address] [place] [address] Anion gap [Moles/Vol] 10 mmol/L Normal 5-15 [facility] Comment on above: Performed By: #### Shira BARKER, , THYR #### [facility] ([id number]) [address], [address] [place] [address] Chloride [Moles/Vol] 95 mmol/L Low 98-109 [facility] Comment on above: Performed By: #### C LUCERO, 43609-9, THYR #### [facility] ([id number]) [address], [address] [place] [address] CO2 [Moles/Vol] 23 mmol/L Normal 22-32 [facility] Comment on above: Performed By: #### Shira BARKER, , THYR #### [facility] ([id number]) [address], [address] [place] [address] Potassium [Moles/Vol] 4.2 mmol/L Normal 3.5-5.0 [facility] Comment on above: Performed By: #### Shira BARKER, , THYR #### [facility] ([id number]) [address], [address] [place] [address] Sodium [Moles/Vol] 128 mmol/L Low 134-146 [facility] Comment on above: Performed By: #### Shira BARKER, , THYR #### [facility] ([id number]) [address], [address] [place] [address] Electrolyte panelon 05-12-19 25 Anion gap [Moles/Vol] 7 mmol/L 5 - 15 mmol/L [facility] Chloride [Moles/Vol] 96 mmol/L Low 98 - 10 9 mmol/L [facility] CO2 [Moles/Vol] 24 mmol/L 22 - 32 mmol/L [facility] Interpretation and review of laboratory results Abnormal [facility] Potassium [Moles/Vol] 4.1 mmol/L 3.5 - 5.0 mmol/L [facility] Sodium [Moles/Vol] 127 mmol/L Low 134 - 146 mmol/L [facility] Anion gap [Moles/Vol] 10 mmol/L 5 - 15 mmol/L [facility] Chloride [Moles/Vol] 95 mmol/L Low 98 - 10 9 mmol/L [facility] CO2 [Moles/Vol] 23 mmol/L 22 - 32 mmol/L [facility] Interpretation and review of laboratory results Abnormal [facility] Potassium [Moles/Vol] 4.2 mmol/L 3.5 - 5.0 mmol/L [facility] Sodium [Moles/Vol] 128 mmol/L Low 134 - 146 mmol/L [facility] Ionized calciumon 05-11-2024 Calcium.ionized (Bld) [Mass/Vol] 4.4 mg/dL Low 4.5 - 5.3 mg/dL [facility] MAGNESIUMon 05-11-2024 Magnesium [Mass/Vol] 1.8 mg/dL Normal 1.8-2.6 [facility] Comment on above: Performed By: #### C LUCERO, 30355-3, THYR #### [facility] ([id number]) [address], [address] [place] [address] Magnesiumon 05-11-2024 Magnesium [Mass/Vol] 1.8 mg/dL 1.8 - 2 .6 mg/dL [facility] No Panel Informationon 05-11 [facility] PHOSPHORUSon 05-11-2024 Phosphate [Mass/Vol] 3.7 mg/dL Normal 2.4-4.9 [facility] Comment on above: Performed By: #### Shira BARKER, , THYR #### [facility] ([id number]) [address], [address] [place] [address] Phosphoruson 05-11-2024 Phosphate [Mass/Vol] 3.7 mg/dL 2.4 - 4 .9 mg/dL [facility] CBC without diffon Erythrocyte distribution width (RBC) [Ratio] 12.8 % 11.5 - 15.0 % [facility] Hematocrit (Bld) [Volume fraction] 28.1 % Low 35 - 47 % [facility] Hemoglobin (Bld) [Mass/Vol] 10.1 g/dL Low 11.7 - 15.5 g/dL [facility] Interpretation and review of laboratory results Abnormal [facility] MCH (RBC) [Entitic mass] 33.7 pg 27 - 34 pg [facility] MCHC (RBC) [Mass/Vol] 35.8 g/dL 32 - 36 g/dL [facility] MCV (RBC) [Entitic vol] 94 fL 80 - 100 fL [facility] Platelet mean volume (Bld) [Entitic vol] 8.8 fL 7 - 12 fL [facility] Platelets (Bld) [#/Vol] 170 10*3/uL [facility] RBC (Bld) [#/Vol] 2.98 10*6/uL Low [facility] WBC corrected for nucl RBC Auto (Bld) [#/Vol] 6.9 [facility] COMPLETE BLOOD COUNTon 05-10 Erythrocyte distribution width (RBC) [Ratio] 12.8 % Normal 11.5-15.0 [facility] Comment on above: Performed By: #### I CODE #### [facility] ([id number]) [address] [place] [address] Hematocrit (Bld) [Volume fraction] 28.1 % Low 35-47 [facility] Comment on above: Performed By: #### I CODE #### [facility] ([id number]) [address] [place] [address] Hemoglobin (Bld) [Mass/Vol] 10.1 g/dL Low 11.7-15.5 [facility] Comment on above: Performed By: #### I CODE #### [facility] ([id number]) [address] [place] [address] MCH (RBC) [Entitic mass] 33.7 pg Normal 27-34 [facility] Comment on above: Performed By: #### I CODE #### [facility] ([id number]) [address] [place] [address] MCHC (RBC) [Mass/Vol] 35.8 g/dL Normal 32-36 [facility] Comment on above: Performed By: #### I CODE #### [facility] ([id number]) [address] [place] [address] MCV (RBC) [Entitic vol] 94 fL Normal 80-100 [facility] Comment on above: Performed By: #### I CODE #### [facility] ([id number]) [address] [place] [address] Platelet mean volume (Bld) [Entitic vol] 8.8 fL Normal 7-12 [facility] Comment on above: Performed By: #### I CODE #### [facility] ([id number]) [address] [place] [address] Platelets (Bld) [#/Vol] 170 10*3/uL Normal 150-450 [facility] Comment on above: Performed By: #### I CODE #### [facility] ([id number]) [address] [place] [address] RBC COUNT 2.98 X10E12/L Low 3.80-5.20 [facility] Comment on above: Performed By: #### I CODE #### [facility] ([id number]) [address] [place] [address] WBC (Bld) [#/Vol] 6.9 10*3/uL Normal 4.0-11.0 [facility] Comment on above: Performed By: #### I CODE #### [facility] ([id number]) [address] [place] [address] COMPREHENSIVE METABOLIC PANE Brock 05-10-2024 Albumin [Mass/Vol] 3.0 g/dL Low 3.2-5.3 [facility] Comment on above: Performed By: #### I CODE #### [facility] ([id number]) [address] [place] [address] ALP [Catalytic activity/Vol] 102 U/L Normal 39-130 [facility] Comment on above: Performed By: #### I CODE #### [facility] ([id number]) [address] [place] [address] ALT [Catalytic activity/Vol] 23 U/L Normal 0-31 [facility] Comment on above: Performed By: #### I CODE #### [facility] ([id number]) [address] [place] [address] Anion gap [Moles/Vol] 8 mmol/L Normal 5-15 [facility] Comment on above: Performed By: #### I CODE #### [facility] ([id number]) [address] [place] [address] AST [Catalytic activity/Vol] 40 U/L Normal 0-41 [facility] Comment on above: Performed By: #### I CODE #### [facility] ([id number]) [address] [place] [address] Bilirubin [Mass/Vol] 0.8 mg/dL Normal 0.3-1.2 [facility] Comment on above: Performed By: #### I CODE #### [facility] ([id number]) [address] [place] [address] Calcium [Mass/Vol] 8.0 mg/dL Low 8.5-10.5 [facility] Comment on above: Performed By: #### I CODE #### [facility] ([id number]) [address] [place] [address] Chloride [Moles/Vol] 96 mmol/L Low 98-109 [facility] Comment on above: Performed By: #### I CODE #### [facility] ([id number]) [address] [place] [address] CO2 [Moles/Vol] 26 mmol/L Normal 22-32 [facility] Comment on above: Performed By: #### I CODE #### [facility] ([id number]) [address] [place] [address] Creatinine [Mass/Vol] 0.42 mg/dL Normal 0.40-1.00 [facility] Comment on above: Result Comment: METH OD TRACEABLE TO IDMS STANDARD Performed By: #### I CODE #### [facility] ([id number]) [address] [place] [address] eGFR (CKD-EPI) NON-RACE DEPENDENT >90 Normal >59 [facility] Comment on above: Result Comment: Reported eGFR is based on the CKD-EPI 2020 equation that does not use a race coefficient. Performed By: #### I CODE #### [facility] ([id number]) [address] [place] [address] Glucose [Mass/Vol] 91 mg/dL Normal 65-99 [facility] Comment on above: Performed By: #### I CODE #### [facility] ([id number]) [address] [place] [address] Potassium [Moles/Vol] 4.0 mmol/L Normal 3.5-5.0 [facility] Comment on above: Performed By: #### I CODE #### [facility] ([id number]) [address] [place] [address] Protein [Mass/Vol] 5.3 g/dL Low 6.0-8.0 [facility] Comment on above: Performed By: #### I CODE #### [facility] ([id number]) [address] [place] [address] Sodium [Moles/Vol] 130 mmol/L Low 134-146 [facility] Comment on above: Performed By: #### I CODE #### [facility] ([id number]) [address] [place] [address] Urea nitrogen [Mass/Vol] 8 mg/dL Normal 5-27 [facility] Comment on above: Performed By: #### I CODE #### [facility] ([id number]) [address] [place] [address] Calcium.ionized (Bld) [Mass/ Vol]on 05-10-2024 [facility] IONIZED CALCIUM 4.6 mg/dL Normal 4.5-5.3 [facility] Comment on above: Performed By: #### I CODE #### [facility] ([id number]) [address] [place] [address] [facility] IONIZED CALCIUM 4.5 mg/dL Normal 4.5-5.3 [facility] Comment on above: Performed By: #### I CODE #### [facility] ([id number]) [address] [place] [address] Cardiac Invasiveon XPER [facility] Cardiac echo study Procedure on 05-10-2024 [facility] Radiology Study observation (narrative) [facility] Cardiac echo study Procedure Ordered By: Shant Doss on 05-10-2024 [facility] Work Phone: Cobalamin (Vitamin B12) [Mas s/Vol]on 05-10-2024 [facility] Comprehensive metabolic pane brock 05-10-2024 Albumin [Mass/Vol] 3 g/dL Low 3.2 - 5.3 g/dL [facility] ALP [Catalytic activity/Vol] 102 U/L 39 - 130 U/L [facility] ALT No additional P-5'-P [Catalytic activity/Vol] 23 U/L 0 - 31 U/L [facility] Anion gap [Moles/Vol] 8 mmol/L 5 - 15 mmol/L [facility] AST [Catalytic activity/Vol] 40 U/L 0 - 41 U/L [facility] Bilirubin [Mass/Vol] 0.8 mg/dL 0.3 - 1 .2 mg/dL [facility] Calcium [Mass/Vol] 8 mg/dL Low 8.5 - 10. 5 mg/dL [facility] Chloride [Moles/Vol] 96 mmol/L Low 98 - 10 9 mmol/L [facility] CO2 [Moles/Vol] 26 mmol/L 22 - 32 mmol/L [facility] Creatinine [Mass/Vol] 0.42 mg/dL 0.40 - 1.00 mg/dL [facility] eGFR (CKD-EPI)non-race dependent - PINF [facility] Glucose [Mass/Vol] 91 mg/dL 65 - 99 mg/dL [facility] Interpretation and review of laboratory results Abnormal [facility] Potassium [Moles/Vol] 4 mmol/L 3.5 - 5.0 mmol/L [facility] Protein [Mass/Vol] 5.3 g/dL Low 6.0 - 8.0 g/dL [facility] Sodium [Moles/Vol] 130 mmol/L Low 134 - 146 mmol/L [facility] Urea nitrogen [Mass/Vol] 8 mg/dL 5 - 27 mg/dL [facility] EEGon 05-10-2024 MANUALLY TRANSCRIBED RESULTS EEGOrdered By: Kat Ríos on 05-10-2024 [facility] Work Phone: ELECTROLYTESon 05-10-2024 Anion gap [Moles/Vol] 9 mmol/L Normal 5-15 [facility] Comment on above: Performed By: #### 8 9579-7 #### [facility] ([id number]) [address], [address] [place] [address] Chloride [Moles/Vol] 95 mmol/L Low 98-109 [facility] Comment on above: Performed By: #### 8 9579-7 #### [facility] ([id number]) [address] [place] [address] CO2 [Moles/Vol] 24 mmol/L Normal 22-32 [facility] Comment on above: Performed By: #### 8 9579-7 #### [facility] ([id number]) [address], [address] [place] [address] Potassium [Moles/Vol] 4.4 mmol/L Normal 3.5-5.0 [facility] Comment on above: Performed By: #### 8 9579-7 #### [facility] ([id number]) [address] [place] [address] Sodium [Moles/Vol] 128 mmol/L Low 134-146 [facility] Comment on above: Performed By: #### 8 9579-7 #### [facility] ([id number]) [address] [place] [address] Anion gap [Moles/Vol] 6 mmol/L Normal 5-15 [facility] Comment on above: Performed By: #### 8 9579-7 #### [facility] ([id number]) [address] [place], [place] [address] Chloride [Moles/Vol] 97 mmol/L Low 98-109 [facility] Comment on above: Performed By: #### 8 9579-7 #### [facility] ([id number]) [address] [place], [place] [address] CO2 [Moles/Vol] 26 mmol/L Normal 22-32 [facility] [facility] Comment on above: Performed By: #### 8 9579-7 #### [facility] ([id number]) [address] [place], [place] [address] Potassium [Moles/Vol] 3.8 mmol/L Normal 3.5-5.0 [facility] Comment on above: Performed By: #### 8 9579-7 #### [facility] ([id number]) [address] [place], [place] [address] Sodium [Moles/Vol] 129 mmol/L Low 134-146 [facility] [place] [facility] Comment on above: Performed By: #### 8 9579-7 #### [facility] ([id number]) [address] [place], [place] [address] Anion gap [Moles/Vol] 7 mmol/L Normal 5-15 [facility] Comment on above: Performed By: #### I CODE #### [facility] ([id number]) [address] [place] [address] Chloride [Moles/Vol] 97 mmol/L Low 98-109 [facility] Comment on above: Performed By: #### I CODE #### [facility] ([id number]) [address] [place] [address] CO2 [Moles/Vol] 26 mmol/L Normal 22-32 [facility] Comment on above: Performed By: #### I CODE #### [facility] ([id number]) [address] [place] [address] Potassium [Moles/Vol] 3.8 mmol/L Normal 3.5-5.0 [facility] Comment on above: Performed By: #### I CODE #### [facility] ([id number]) [address] [place] [address] Sodium [Moles/Vol] 130 mmol/L Low 134-146 [facility] Comment on above: Performed By: #### I CODE #### [facility] ([id number]) [address] [place] [address] Anion gap [Moles/Vol] 7 mmol/L Normal 5-15 [facility] Comment on above: Performed By: #### I CODE #### [facility] ([id number]) [address] [place] [address] Chloride [Moles/Vol] 96 mmol/L Low 98-109 [facility] Comment on above: Performed By: #### I CODE #### [facility] ([id number]) [address] [place] [address] CO2 [Moles/Vol] 28 mmol/L Normal 22-32 [facility] Comment on above: Performed By: #### I CODE #### [facility] ([id number]) [address] [place] [address] Potassium [Moles/Vol] 4.0 mmol/L Normal 3.5-5.0 [facility] Comment on above: Performed By: #### I CODE #### [facility] ([id number]) [address] [place] [address] Sodium [Moles/Vol] 131 mmol/L Low 134-146 [facility] Comment on above: Performed By: #### I CODE #### [facility] ([id number]) [address] [place] [address] Electrolyte panelon 05-11-19 25 Anion gap [Moles/Vol] 9 mmol/L 5 - 15 mmol/L [facility] Chloride [Moles/Vol] 95 mmol/L Low 98 - 10 9 mmol/L [facility] CO2 [Moles/Vol] 24 mmol/L 22 - 32 mmol/L [facility] Interpretation and review of laboratory results Abnormal [facility] Potassium [Moles/Vol] 4.4 mmol/L 3.5 - 5.0 mmol/L [facility] Sodium [Moles/Vol] 128 mmol/L Low 134 - 146 mmol/L [facility] Anion gap [Moles/Vol] 6 mmol/L 5 - 15 mmol/L [facility] Chloride [Moles/Vol] 97 mmol/L Low 98 - 10 9 mmol/L [facility] CO2 [Moles/Vol] 26 mmol/L 22 - 32 mmol/L [facility] Interpretation and review of laboratory results Abnormal [facility] Potassium [Moles/Vol] 3.8 mmol/L 3.5 - 5.0 mmol/L [facility] Sodium [Moles/Vol] 129 mmol/L Low 134 - 146 mmol/L [facility] Anion gap [Moles/Vol] 7 mmol/L 5 - 15 mmol/L [facility] Chloride [Moles/Vol] 97 mmol/L Low 98 - 10 9 mmol/L [facility] CO2 [Moles/Vol] 26 mmol/L 22 - 32 mmol/L [facility] Interpretation and review of laboratory results Abnormal [facility] Potassium [Moles/Vol] 3.8 mmol/L 3.5 - 5.0 mmol/L [facility] Sodium [Moles/Vol] 130 mmol/L Low 134 - 146 mmol/L [facility] Anion gap [Moles/Vol] 7 mmol/L 5 - 15 mmol/L [facility] Chloride [Moles/Vol] 96 mmol/L Low 98 - 10 9 mmol/L [facility] CO2 [Moles/Vol] 28 mmol/L 22 - 32 mmol/L [facility] Interpretation and review of laboratory results Abnormal [facility] Potassium [Moles/Vol] 4 mmol/L 3.5 - 5.0 mmol/L [facility] Sodium [Moles/Vol] 131 mmol/L Low 134 - 146 mmol/L [facility] Folateon 05-10-2024 Folate [Mass/Vol] 4.2 ng/mL Low 5.8 - PINF ng/mL [facility] Folate [Mass/Vol] 4.1 ng/mL Low 5.8 - PINF ng/mL [facility] Folate [Mass/Vol]on 05-11-19 Interpretation and review of laboratory results Abnormal [facility] FOLIC ACID 4.2 ng/mL Low >5.8 [facility] Comment on above: Result Comment: NEW REFERENCE RANGE Performed By: #### 8 9579-7 #### [facility] ([id number]) [address] [place] [address], [address] [place] [address] Interpretation and review of laboratory results Abnormal [facility] FOLIC ACID 4.1 ng/mL Low >5.8 [facility] Comment on above: Result Comment: NEW REFERENCE RANGE Performed By: #### 8 9579-7 #### [facility] ([id number]) [address] [place] [address], [address] [place] [address] Ionized calciumon 05-10-2024 Calcium.ionized (Bld) [Mass/Vol] 4.6 mg/dL 4.5 - 5.3 mg/dL [facility] Calcium.ionized (Bld) [Mass/Vol] 4.5 mg/dL 4.5 - 5.3 mg/dL [facility] Ionized magnesiumon 05-11-19 Magnesium Ionized ISE (Bld) [Moles/Vol] 0.64 mmol/L 0.45 - 0.74 mmol/L [facility] MAGNESIUMon 05-10-2024 Magnesium [Mass/Vol] 1.8 mg/dL Normal 1.8-2.6 [facility] Comment on above: Performed By: #### I CODE #### [facility] ([id number]) [address] [place] [address] Magnesiumon 05-10-2024 Magnesium [Mass/Vol] 1.8 mg/dL 1.8 - 2 .6 mg/dL [facility] Magnesium Ionized ISE (Bld) [Moles/Vol]on 05-10-2024 [facility] Magnesium [Moles/Vol] 0.64 mmol/L Normal 0.45-0.74 [facility] Comment on above: Result Comment: NEW REFERENCE RANGE Performed By: #### 8 9579-7 #### [facility] ([id number]) [address] [facility], [address] [place] [address] No Panel Informationon 05-10 [facility] PHOSPHORUSon 05-10-2024 Phosphate [Mass/Vol] 3.1 mg/dL Normal 2.4-4.9 [facility] Comment on above: Performed By: #### I CODE #### [facility] ([id number]) [address] [place] [address] Phosphoruson 05-10-2024 Phosphate [Mass/Vol] 3.1 mg/dL 2.4 - 4 .9 mg/dL [facility] Thiamine (Bld) [Moles/Vol]on 05-10-2024 Thiamin (Vitamin B1), WB 68 nmol/L Low 70-180 [facility] Comment on above: Result Comment: NOTE ADDITIONAL INFORMATION This test was developed and its performance characteristics determined by [facility] in a manner consistent with CLIA requirements. This test has not been cleared or approved by the U.S. Food and Drug Administration. Test Performed by: [facility] [place] [address] Pulp And Paper Tester: Ester Macdonald Ph.D.; CLIA# [id number] Performed By: #### 8 9579-7 #### [facility] ([id number]) [address] [facility] [address], [address] [place] [address] Thiamin (Vitamin B1), WB 56 nmol/L Low 70-180 [facility] Comment on above: Result Comment: NOTE ADDITIONAL INFORMATION This test was developed and its performance characteristics determined by [facility] in a manner consistent with CLIA requirements. This test has not been cleared or approved by the U.S. Food and Drug Administration. Test Performed by: [facility] [place] [address] Pulp And Paper Tester: Ester Macdonald Ph.D.; CLIA# [id number] Performed By: #### 8 9579-7 #### [facility] ([id number]) [address], [address] [place] [address] VITAMIN B12on 05-10-2024 Cobalamin (Vitamin B12) [Mass/Vol] 295 pg/mL Normal 180-914 [facility] Comment on above: Performed By: #### 8 9579-7 #### [facility] ([id number]) [address], [address] [place] [address] Vitamin B12on 05-10-2024 Cobalamin (Vitamin B12) [Mass/Vol] 295 pg/mL 180 - 914 pg/mL [facility] CBC without diffon Interpretation and review of laboratory results Abnormal [facility] RBC (Bld) [#/Vol] 2.97 10*6/uL Low [facility] WBC corrected for nucl RBC Auto (Bld) [#/Vol] 7.1 [facility] COMPLETE BLOOD COUNTon 05-09 Erythrocyte distribution width (RBC) [Ratio] 12.7 % Normal 11.5-15.0 [facility] Comment on above: Performed By: #### KEVIN Silva BCA, 77181-7 #### [facility] ([id number]) [address], [address] [place] [address] Hematocrit (Bld) [Volume fraction] 28.6 % Low 35-47 [facility] Comment on above: Performed By: #### KEVIN Silva BCA, 44564-5 #### [facility] ([id number]) [address], [address] [place] [address] Hemoglobin (Bld) [Mass/Vol] 10.1 g/dL Low 11.7-15.5 [facility] Comment on above: Performed By: #### KEVIN Silva BCA, 88762-0 #### [facility] ([id number]) [address], [address] [place] [address] MCH (RBC) [Entitic mass] 33.9 pg Normal 27-34 [facility] Comment on above: Performed By: #### KEVIN Silva BCA, 27670-4 #### [facility] ([id number]) [address], [address] [place] [address] MCHC (RBC) [Mass/Vol] 35.2 g/dL Normal 32-36 [facility] Comment on above: Performed By: #### KEVIN Silva BCA, 62050-4 #### [facility] ([id number]) [address], [address] [place] [address] MCV (RBC) [Entitic vol] 96 fL Normal 80-100 [facility] Comment on above: Performed By: #### SURENDRA Silva BCAR, 11682-8 #### [facility] ([id number]) [address], [address] [place] [address] Platelet mean volume (Bld) [Entitic vol] 8.9 fL Normal 7-12 [facility] Comment on above: Performed By: #### Shira [place], PINR, 89941-2 #### [facility] ([id number]) [address], [address] [place] [address] Platelets (Bld) [#/Vol] 138 10*3/uL Low 150-450 [facility] Comment on above: Performed By: #### Shira [place], PINR, 27294-6 #### [facility] ([id number]) [address], [address] [place] [address] RBC COUNT 2.97 X10E12/L Low 3.80-5.20 [facility] Comment on above: Performed By: #### Shira [place], PINR, 69406-3 #### [facility] ([id number]) [address], [address] [place] [address] WBC (Bld) [#/Vol] 7.1 10*3/uL Normal 4.0-11.0 [facility] Comment on above: Performed By: #### Shira [place], PINR, 22907-6 #### [facility] ([id number]) [address], [address] [place] [address] COMPREHENSIVE METABOLIC PANE Brock 05-09-2024 ALP [Catalytic activity/Vol] 52 U/L Normal 39-130 [facility] Comment on above: Performed By: #### Shira [place], PINR, 86689-6 #### [facility] ([id number]) [address], [address] [place] [address] Anion gap [Moles/Vol] 5 mmol/L Normal 5-15 [facility] Comment on above: Performed By: #### Shira [place], PINR, 28393-3 #### [facility] ([id number]) [address], [address] [place] [address] AST [Catalytic activity/Vol] 44 U/L High 0-41 [facility] Comment on above: Performed By: #### C BCA, PINR, 63695-3 #### [facility] ([id number]) [address], [address] [place] [address] Bilirubin [Mass/Vol] 0.8 mg/dL Normal 0.3-1.2 [facility] Comment on above: Performed By: #### C BCA, PINR, 86458-9 #### [facility] ([id number]) [address], [address] [place] [address] Calcium [Mass/Vol] 7.8 mg/dL Low 8.5-10.5 [facility] Comment on above: Performed By: #### C BCA, PINR, 92640-6 #### [facility] ([id number]) [address], [address] [place] [address] Chloride [Moles/Vol] 96 mmol/L Low 98-109 [facility] Comment on above: Performed By: #### C BCA, PINR, 36019-0 #### [facility] ([id number]) [address], [address] [place] [address] CO2 [Moles/Vol] 28 mmol/L Normal 22-32 [facility] Comment on above: Performed By: #### C BCA, PINR, 97898-7 #### [facility] ([id number]) [address], [address] [place] [address] Creatinine [Mass/Vol] 0.37 mg/dL Low 0.40-1.00 [facility] Comment on above: Result Comment: METH OD TRACEABLE TO IDMS STANDARD Performed By: #### C BCA, PINR, 90061-1 #### [facility] ([id number]) [address], [address] [place] [address] Glucose [Mass/Vol] 86 mg/dL Normal 65-99 [facility] Comment on above: Performed By: #### C TALISHA PINR, 10412-4 #### [facility] ([id number]) [address], [address] [place] [address] Potassium [Moles/Vol] 3.9 mmol/L Normal 3.5-5.0 [facility] Comment on above: Performed By: #### C TALISHA, PINR, 57790-9 #### [facility] ([id number]) [address], [address] [place] [address] Protein [Mass/Vol] 5.2 g/dL Low 6.0-8.0 [facility] Comment on above: Performed By: #### Shira [place], PINR, 73741-8 #### [facility] ([id number]) [address], [address] [place] [address] Sodium [Moles/Vol] 129 mmol/L Low 134-146 [facility] Comment on above: Performed By: #### C TALISHA, PINR, 47336-7 #### [facility] ([id number]) [address], [address] [place] [address] Urea nitrogen [Mass/Vol] 8 mg/dL Normal 5-27 [facility] Comment on above: Performed By: #### C TALISHA, PINR, 89775-4 #### [facility] ([id number]) [address], [address] [place] [address] Albumin [Mass/Vol] 3.0 g/dL Low 3.2-5.3 [facility] Comment on above: Performed By: #### C TALISHA, PINR, 91182-1 #### [facility] ([id number]) [address], [address] [place] [address] ALT [Catalytic activity/Vol] 15 U/L Normal 0-31 [facility] Comment on above: Performed By: #### C BCA, PINR, 59021-5 #### [facility] ([id number]) [address], [address] [place] [address] eGFR (CKD-EPI) NON-RACE DEPENDENT >90 Normal >59 [facility] Comment on above: Result Comment: Reported eGFR is based on the CKD-EPI 2020 equation that does not use a race coefficient. Performed By: #### C BCA, PINR, 95052-6 #### [facility] ([id number]) [address] [facility] [address], [address] [place] [address] Calcium.ionized (Bld) [Mass/ Vol]on 05-09-2024 Interpretation and review of laboratory results Abnormal [facility] IONIZED CALCIUM 4.3 mg/dL Low 4.5-5.3 [facility] Comment on above: Performed By: #### C BCA, PINR, 27713-7 #### [facility] ([id number]) [address] [facility] [address], [address] [place] [address] Interpretation and review of laboratory results Abnormal [facility] Cardiac Invasiveon Radiology Study observation (narrative) [facility] Comprehensive metabolic pane brock 05-09-2024 Albumin [Mass/Vol] 3 g/dL Low 3.2 - 5.3 g/dL [facility] ALT No additional P-5'-P [Catalytic activity/Vol] 15 U/L 0 - 31 U/L [facility] eGFR (CKD-EPI)non-race dependent - PINF [facility] Interpretation and review of laboratory results Abnormal [facility] ELECTROLYTESon 05-09-2024 Anion gap [Moles/Vol] 6 mmol/L Normal 5-15 [facility] Comment on above: Performed By: #### I CODE #### [facility] ([id number]) [address] [place] [address] Chloride [Moles/Vol] 96 mmol/L Low 98-109 [facility] Comment on above: Performed By: #### I CODE #### [facility] ([id number]) [address] [place] [address] CO2 [Moles/Vol] 29 mmol/L Normal 22-32 [facility] Comment on above: Performed By: #### I CODE #### [facility] ([id number]) [address] [place] [address] Potassium [Moles/Vol] 4.3 mmol/L Normal 3.5-5.0 [facility] Comment on above: Performed By: #### I CODE #### [facility] ([id number]) [address] [place] [address] Sodium [Moles/Vol] 131 mmol/L Low 134-146 [facility] Comment on above: Performed By: #### I CODE #### [facility] ([id number]) [address] [place] [address] Anion gap [Moles/Vol] 7 mmol/L Normal 5-15 [facility] Comment on above: Performed By: #### I CODE #### [facility] ([id number]) [address] [place] [address] Chloride [Moles/Vol] 97 mmol/L Low 98-109 [facility] Comment on above: Performed By: #### I CODE #### [facility] ([id number]) [address] [place] [address] CO2 [Moles/Vol] 26 mmol/L Normal 22-32 [facility] Comment on above: Performed By: #### I CODE #### [facility] ([id number]) [address] [place] [address] Potassium [Moles/Vol] 4.0 mmol/L Normal 3.5-5.0 [facility] Comment on above: Performed By: #### I CODE #### [facility] ([id number]) [address] [facility] [place] [place] [address] Sodium [Moles/Vol] 130 mmol/L Low 134-146 [facility] Comment on above: Performed By: #### I CODE #### [facility] ([id number]) [address] [facility] [place] [place] [address] Anion gap [Moles/Vol] 10 mmol/L Normal 5-15 [facility] Comment on above: Performed By: #### C TALISHA PINR, 65710-9 #### [facility] ([id number]) [address], [address] [place] [address] Chloride [Moles/Vol] 99 mmol/L Normal 98-109 [facility] Comment on above: Performed By: #### C TALISHA, PINR, 26680-5 #### [facility] ([id number]) [address], [address] [place] [address] CO2 [Moles/Vol] 22 mmol/L Normal 22-32 [facility] Comment on above: Performed By: #### C TALISHA, PINR, 76455-6 #### [facility] ([id number]) [address], [address] [place] [address] Potassium [Moles/Vol] 4.1 mmol/L Normal 3.5-5.0 [facility] Comment on above: Performed By: #### C TALISHA, PINR, 85976-4 #### [facility] ([id number]) [address], [address] [place] [address] Sodium [Moles/Vol] 131 mmol/L Low 134-146 [facility] Comment on above: Performed By: #### C TALISHA, PINR, 95573-1 #### [facility] ([id number]) [address], [address] [place] [address] Anion gap [Moles/Vol] 6 mmol/L Normal 5-15 [facility] Comment on above: Performed By: #### C BCA, PINR, 37882-6 #### [facility] ([id number]) [address], [address] [place] [address] Chloride [Moles/Vol] 96 mmol/L Low 98-109 [facility] Comment on above: Performed By: #### Shira BCA, PINR, 09167-8 #### [facility] ([id number]) [address], [address] [place] [address] CO2 [Moles/Vol] 28 mmol/L Normal 22-32 [facility] Comment on above: Performed By: #### Shira [place], PINR, 13576-0 #### [facility] ([id number]) [address], [address] [place] [address] Potassium [Moles/Vol] 4.1 mmol/L Normal 3.5-5.0 [facility] Comment on above: Performed By: #### Shira [place], PINR, 35430-4 #### [facility] ([id number]) [address], [address] [place] [address] Sodium [Moles/Vol] 130 mmol/L Low 134-146 [facility] Comment on above: Performed By: #### Shira BCA, PINR, 66626-9 #### [facility] ([id number]) [address], [address] [place] [address] Electrolyte panelon 05-10-19 25 Anion gap [Moles/Vol] 6 mmol/L 5 - 15 mmol/L [facility] Chloride [Moles/Vol] 96 mmol/L Low 98 - 10 9 mmol/L [facility] CO2 [Moles/Vol] 29 mmol/L 22 - 32 mmol/L [facility] Interpretation and review of laboratory results Abnormal [facility] Potassium [Moles/Vol] 4.3 mmol/L 3.5 - 5.0 mmol/L [facility] Sodium [Moles/Vol] 131 mmol/L Low 134 - 146 mmol/L [facility] Anion gap [Moles/Vol] 7 mmol/L 5 - 15 mmol/L [facility] Chloride [Moles/Vol] 97 mmol/L Low 98 - 10 9 mmol/L [facility] CO2 [Moles/Vol] 26 mmol/L 22 - 32 mmol/L [facility] Interpretation and review of laboratory results Abnormal [facility] Potassium [Moles/Vol] 4 mmol/L 3.5 - 5.0 mmol/L [facility] Sodium [Moles/Vol] 130 mmol/L Low 134 - 146 mmol/L [facility] Anion gap [Moles/Vol] 10 mmol/L 5 - 15 mmol/L [facility] Chloride [Moles/Vol] 99 mmol/L 98 - 10 9 mmol/L [facility] CO2 [Moles/Vol] 22 mmol/L 22 - 32 mmol/L [facility] Interpretation and review of laboratory results Abnormal [facility] Potassium [Moles/Vol] 4.1 mmol/L 3.5 - 5.0 mmol/L [facility] Sodium [Moles/Vol] 131 mmol/L Low 134 - 146 mmol/L [facility] Anion gap [Moles/Vol] 6 mmol/L 5 - 15 mmol/L [facility] Chloride [Moles/Vol] 96 mmol/L Low 98 - 10 9 mmol/L [facility] CO2 [Moles/Vol] 28 mmol/L 22 - 32 mmol/L [facility] Interpretation and review of laboratory results Abnormal [facility] Potassium [Moles/Vol] 4.1 mmol/L 3.5 - 5.0 mmol/L [facility] Sodium [Moles/Vol] 130 mmol/L Low 134 - 146 mmol/L [facility] Ionized calciumon 05-09-2024 Calcium.ionized (Bld) [Mass/Vol] 4.3 mg/dL Low 4.5 - 5.3 mg/dL [facility] Calcium.ionized (Bld) [Mass/Vol] 4.3 mg/dL Low 4.5 - 5.3 mg/dL [facility] Ionized magnesiumon 03-27-20 25 Magnesium Ionized ISE (Bld) [Moles/Vol] 0.66 mmol/L 0.45 - 0.74 mmol/L [facility] Laboratory - Chemistry and C hemistry - challengeon 05-09-2024 Magnesium [Mass/Vol] 1.9 mg/dL Normal 1.8-2.6 [facility] Comment on above: Performed By: #### C KEVIN [place], 03590-3 #### [facility] ([id number]) [address], [address] [place] [address] Phosphate [Mass/Vol] 2.5 mg/dL Normal 2.4-4.9 [facility] Comment on above: Performed By: #### KEVIN Silva BCA, 24606-8 #### [facility] ([id number]) [address], [address] [place] [address] Magnesium Ionized ISE (Bld) [Moles/Vol]on 05-09-2024 Magnesium [Moles/Vol] 0.66 mmol/L Normal 0.45-0.74 [facility] Comment on above: Result Comment: NEW REFERENCE RANGE Performed By: #### KEVIN Silva BCA, 78115-2 #### [facility] ([id number]) [address], [address] [place] [address] No Panel Informationon 05-09 [facility] Anti XA unfractionated hepar inon 05-08-2024 Heparin unfractionated Chromogenic method Qn (PPP) Low [facility] CBC without diffon Erythrocyte distribution width (RBC) [Ratio] 13.2 % 11.5 - 15.0 % [facility] Hematocrit (Bld) [Volume fraction] 34 % Low 35 - 47 % [facility] Hemoglobin (Bld) [Mass/Vol] 12 g/dL 11.7 - 15.5 g/dL [facility] Interpretation and review of laboratory results Abnormal [facility] MCH (RBC) [Entitic mass] 33.2 pg 27 - 34 pg [facility] MCHC (RBC) [Mass/Vol] 35.5 g/dL 32 - 36 g/dL [facility] MCV (RBC) [Entitic vol] 94 fL 80 - 100 fL [facility] Platelet mean volume (Bld) [Entitic vol] PLATELET CLUMPS PRECLUDE COUNT 7 - 12 fL [facility] Platelets (Bld) [#/Vol] ESTIMATE OF PLATELETS, NORMAL [facility] RBC (Bld) [#/Vol] 3.63 10*6/uL Low [facility] WBC corrected for nucl RBC Auto (Bld) [#/Vol] 10 [facility] COMPLETE BLOOD COUNTon 05-08 Erythrocyte distribution width (RBC) [Ratio] 13.2 % Normal 11.5-15.0 [facility] Comment on above: Performed By: #### Shira WOODALL PINR, [id number] #### [facility] ([id number]) [address], [address] [place] [address] Hematocrit (Bld) [Volume fraction] 34.0 % Low 35-47 [facility] Comment on above: Performed By: #### Shira WOODALL, PINR, [id number] #### [facility] ([id number]) [address], [address] [place] [address] Hemoglobin (Bld) [Mass/Vol] 12.0 g/dL Normal 11.7-15.5 [facility] Comment on above: Performed By: #### Shira WOODALL PINR, 24846-0 #### [facility] ([id number]) [address], [address] [place] [address] MCH (RBC) [Entitic mass] 33.2 pg Normal 27-34 [facility] Comment on above: Performed By: #### Shira WOODALL, PINR, 39952-9 #### [facility] ([id number]) [address], [address] [place] [address] MCHC (RBC) [Mass/Vol] 35.5 g/dL Normal 32-36 [facility] Comment on above: Performed By: #### Shira WOODALL, PINR, [id number] #### [facility] ([id number]) [address], [facility] [address] [place] [address] MCV (RBC) [Entitic vol] 94 fL Normal 80-100 [facility] Comment on above: Performed By: #### Shira WOODALL PINR, [id number] #### [facility] ([id number]) [address], [facility] [address] [place] [address] MPV PLATELET CLUMPS PRECLUDE COUNT Normal 7-12 [facility] Comment on above: Performed By: #### Shira WOODALL PINR, [id number] #### [facility] ([id number]) [address], [address] [address] PLATELET COUNT ESTIMATE OF PLATELETS, NORMAL Normal 150-450 [facility] Comment on above: Result Comment: PLAT ELET CLUMPS PRECLUDE COUNT Performed By: #### Shira WOODALL PINR, [id number] #### [facility] ([id number]) [address], [facility] [address] [place] [address] RBC COUNT 3.63 X10E12/L Low 3.80-5.20 [facility] Comment on above: Performed By: #### Shira WOODALL PINR, [id number] #### [facility] ([id number]) [address], [address] [address] WBC (Bld) [#/Vol] 10.0 10*3/uL Normal 4.0-11.0 [facility] Comment on above: Performed By: #### Shira WOODALL, PINR, 70990-2 #### [facility] ([id number]) [address], [address] [place] [address] COMPREHENSIVE METABOLIC PANE Brock 05-08-2024 Albumin [Mass/Vol] 3.3 g/dL Normal 3.2-5.3 [facility] Comment on above: Performed By: #### C BCA, PINR, 22577-4 #### [facility] ([id number]) [address], [address] [place], [place] [address] ALP [Catalytic activity/Vol] 59 U/L Normal 39-130 [facility] Comment on above: Performed By: #### C BCA, PINR, 13456-1 #### [facility] ([id number]) [address], [address] [place], [place] [address] ALT [Catalytic activity/Vol] 25 U/L Normal 0-31 [facility] Comment on above: Performed By: #### C BCA, PINR, 39564-5 #### [facility] ([id number]) [address], [address] [place], [place] [address] Anion gap [Moles/Vol] 7 mmol/L Normal 5-15 [facility] Comment on above: Performed By: #### C BCA, PINR, 98570-9 #### [facility] ([id number]) [address], [address] [place], [place] [address] AST [Catalytic activity/Vol] 110 U/L High 0-41 [facility] Comment on above: Performed By: #### C BCA, PINR, [id number] #### [facility] ([id number]) [address], [address] [place] [address] Bilirubin [Mass/Vol] 1.0 mg/dL Normal 0.3-1.2 [facility] Comment on above: Performed By: #### C BCA, PINR, 80351-2 #### [facility] ([id number]) [address], [address] [place] [address] Calcium [Mass/Vol] 8.2 mg/dL Low 8.5-10.5 [facility] Comment on above: Performed By: #### C BCA, PINR, [id number] #### [facility] ([id number]) [address], [address] [place] [address] Chloride [Moles/Vol] 93 mmol/L Low 98-109 [facility] Comment on above: Performed By: #### C TALISHA PINR, 31864-0 #### [facility] ([id number]) [address], [address] [place] [address] CO2 [Moles/Vol] 28 mmol/L Normal 22-32 [facility] Comment on above: Performed By: #### C KEVIN WOODALL, [id number] #### [facility] ([id number]) [address], [address] [place] [address] Creatinine [Mass/Vol] 0.48 mg/dL Normal 0.40-1.00 [facility] Comment on above: Result Comment: METH OD TRACEABLE TO IDMS STANDARD Performed By: #### C KEVIN WOODALL, 49794-6 #### [facility] ([id number]) [address] [address] [place] [address] eGFR (CKD-EPI) NON-RACE DEPENDENT >90 Normal >59 [facility] Comment on above: Result Comment: Reported eGFR is based on the CKD-EPI 2021 equation that does not use a race coefficient. Performed By: #### C KEVIN WOODALL, 23572-1 #### [facility] ([id number]) [address], [address] [place] [address] Glucose [Mass/Vol] 94 mg/dL Normal 65-99 [facility] Comment on above: Performed By: #### C TALISHA PINR, [id number] #### [facility] ([id number]) [address], [address] [place] [address] Potassium [Moles/Vol] 3.3 mmol/L Low 3.5-5.0 [facility] Comment on above: Performed By: #### C TALISHA PINR, [id number] #### [facility] ([id number]) [address], [address] [place] [address] Protein [Mass/Vol] 5.8 g/dL Low 6.0-8.0 [facility] Comment on above: Performed By: #### C BCA, PINR, [id number] #### [facility] ([id number]) [address], [address] [place] [address] Sodium [Moles/Vol] 128 mmol/L Low 134-146 [facility] Comment on above: Performed By: #### C BCA, PINR, 52163-6 #### [facility] ([id number]) [address], [address] [place] [address] Urea nitrogen [Mass/Vol] 10 mg/dL Normal 5-27 [facility] Comment on above: Performed By: #### C BCA, PINR, 69278-0 #### [facility] ([id number]) [address], [address] [place] [address] Cardiac echo study Procedure on 05-08-2024 XCELERA [facility] Comprehensive metabolic pane brock 05-08-2024 Albumin [Mass/Vol] 3.3 g/dL 3.2 - 5.3 g/dL [facility] ALP [Catalytic activity/Vol] 59 U/L 39 - 130 U/L [facility] ALT No additional P-5'-P [Catalytic activity/Vol] 25 U/L 0 - 31 U/L [facility] Anion gap [Moles/Vol] 7 mmol/L 5 - 15 mmol/L [facility] AST [Catalytic activity/Vol] 110 U/L High 0 - 41 U/L [facility] Bilirubin [Mass/Vol] 1 mg/dL 0.3 - 1 .2 mg/dL [facility] Calcium [Mass/Vol] 8.2 mg/dL Low 8.5 - 10. 5 mg/dL [facility] Chloride [Moles/Vol] 93 mmol/L Low 98 - 10 9 mmol/L [facility] CO2 [Moles/Vol] 28 mmol/L 22 - 32 mmol/L [facility] Creatinine [Mass/Vol] 0.48 mg/dL 0.40 - 1.00 mg/dL [facility] eGFR (CKD-EPI)non-race dependent - PINF [facility] Glucose [Mass/Vol] 94 mg/dL 65 - 99 mg/dL [facility] Interpretation and review of laboratory results Abnormal [facility] Potassium [Moles/Vol] 3.3 mmol/L Low 3.5 - 5.0 mmol/L [facility] Protein [Mass/Vol] 5.8 g/dL Low 6.0 - 8.0 g/dL [facility] Sodium [Moles/Vol] 128 mmol/L Low 134 - 146 mmol/L [facility] Urea nitrogen [Mass/Vol] 10 mg/dL 5 - 27 mg/dL [facility] Cortisolon 05-08-2024 Cortisol [Mass/Vol] 15.2 ug/dL [facility] Cortisol [Mass/Vol]on 2024 [facility] CORTISOL 15.2 ug/dL Normal [facility] Comment on above: Result Comment: Due to the diurnal variation of cortisol levels in normal subjects, all cortisol measurements should be referenced to the time of day of sample collection. AM Cortisol Age>=6 6.7-22.4 ug/dL PM Cortisol Age>=6 <10 ug/dL Performed By: #### C BCA, PINR, 98217-4 #### [facility] ([id number]) [address] [place] [address], [address] [place] [address] DRUG SCREEN, URINEon 025 AMPHETAMINE/METHAMP Negative Normal NEG [facility] Comment on above: Result Comment: AMPH /METH screening cut off = 1000 ng/mL Performed By: #### C BCA, PINR, 47528-5 #### [facility] ([id number]) [address], [address] [place] [address] BARBITURATES Negative Normal NEG [facility] Comment on above: Result Comment: Brittni iturates screening cut off value = 200 ng/mL Performed By: #### C TALISHA, PINR, 92127-0 #### [facility] ([id number]) [address], [address] [place] [address] BENZODIAZEPINES Positive Abnormal NEG [facility] Comment on above: Result Comment: Conf irmation available upon request. Benzodiazepines screening cut off value = 200 ng/mL Performed By: #### C TALISHA, PINR, 22930-2 #### [facility] ([id number]) [address], [address] [place] [address] CANNABINOIDS Negative Normal NEG [facility] Comment on above: Result Comment: Misha abinoids/THC screening cut off value = 50 ng/mL Performed By: #### C TALISHA, PINR, 37722-3 #### [facility] ([id number]) [address], [address] [place] [address] COCAINE METABOLITE Negative Normal NEG [facility] Comment on above: Result Comment: Coca ine screening cut off value = 300 ng/mL Performed By: #### C TALISHA, PINR, 14966-4 #### [facility] ([id number]) [address], [address] [place] [address] ECSTASY Negative Normal NEG [facility] Comment on above: Result Comment: Ecst asy screening cut off value = 500 ng/mL This report is intended for use in clinical monitoring or management of patients. Performed By: #### C TALISHA, PINR, 46367-1 #### [facility] ([id number]) [address], [address] [place] [address] METHADONE Negative Normal NEG [facility] Comment on above: Result Comment: Meth adone screening cut off value = 300 ng/mL. Performed By: #### C TALISHA, PINR, 82736-2 #### [facility] ([id number]) [address], [address] [place] [address] OPIATES Positive Abnormal NEG [facility] Comment on above: Result Comment: Conf irmation available upon request. Opiates screening cut off value = 300 ng/mL NOTE: This test is used for the detection of codeine, hydrocodone (>1000 ng/mL), morphine and hydromorphone (>900 ng/mL) in urine. Performed By: #### C BCA, PINR, 37330-2 #### [facility] ([id number]) [address], [address] [place] [address] OXYCODONE Negative Normal NEG [facility] Comment on above: Result Comment: Oxyc odone screening cut off value = 300 ng/mL NOTE: This test is used for the detection of oxycodone and oxymorphone in urine. Performed By: #### C BCA, PINR, 84153-2 #### [facility] ([id number]) [address], [address] [place] [address] PHENCYCLIDINE Negative Normal NEG [facility] Comment on above: Result Comment: Phen cyclidine screening cut off value = 25 ng/mL Performed By: #### C BCA, PINR, 15182-2 #### [facility] ([id number]) [address], [address] [place] [address] Drug Screen, Urineon 025 Amphetamines Screen method >1000 ng/mL Ql (U) Negative Negative^Neg ative [facility] Barbiturates Screen Ql (U) Negative Negative^Neg ative [facility] Benzodiazepines Ql (U) Positive Abnormal Negat stuart^Neg ative [facility] Cocaine Ql (U) Negative Negative^Neg ative [facility] Interpretation and review of laboratory results Abnormal [facility] Methadone Screen Ql (U) Negative Nega tive^Neg ative [facility] Methylenedioxymethamphe tamine Screen Ql (U) Negative Negative^Neg ative [facility] Opiates Screen Ql (U) Positive Abnormal Negati ve^Neg ative [facility] oxyCODONE Ql (U) Negative Negative^Ne g ative [facility] Phencyclidine Screen method >25 ng/mL Ql (U) Negative Negative^Neg ative [facility] Tetrahydrocannabinol Screen method >50 ng/mL Ql (U) Negative Negative^Neg ative [facility] ELECTROLYTESon 05-08-2024 Anion gap [Moles/Vol] 6 mmol/L Normal 5-15 [facility] Comment on above: Performed By: #### C TALISHA, PINR, 79889-4 #### [facility] ([id number]) [address], [address] [place] [address] Chloride [Moles/Vol] 97 mmol/L Low 98-109 [facility] Comment on above: Performed By: #### Shira BCA, PINR, 24108-5 #### [facility] ([id number]) [address], [address] [place] [address] CO2 [Moles/Vol] 26 mmol/L Normal 22-32 [facility] Comment on above: Performed By: #### C BCA, PINR, 14061-9 #### [facility] ([id number]) [address], [address] [place] [address] Potassium [Moles/Vol] 4.3 mmol/L Normal 3.5-5.0 [facility] Comment on above: Performed By: #### C BCA, PINR, 34762-4 #### [facility] ([id number]) [address], [address] [place] [address] Sodium [Moles/Vol] 129 mmol/L Low 134-146 [facility] Comment on above: Performed By: #### C BCA, PINR, 09008-5 #### [facility] ([id number]) [address], [address] [place] [address] Anion gap [Moles/Vol] 8 mmol/L Normal 5-15 [facility] Comment on above: Performed By: #### Shira WOODALL PINR, 22759-1 #### [facility] ([id number]) [address], [address] [place] [address] Chloride [Moles/Vol] 95 mmol/L Low 98-109 [facility] Comment on above: Performed By: #### C TALISHA PINR, 61304-3 #### [facility] ([id number]) [address], [address] [place] [address] CO2 [Moles/Vol] 24 mmol/L Normal 22-32 [facility] Comment on above: Performed By: #### Shira WOODALL PINR, 11292-3 #### [facility] ([id number]) [address], [address] [place] [address] Potassium [Moles/Vol] 4.0 mmol/L Normal 3.5-5.0 [facility] Comment on above: Performed By: #### Shira WOODALL PINR, 94640-3 #### [facility] ([id number]) [address], [address] [place] [address] Sodium [Moles/Vol] 127 mmol/L Low 134-146 [facility] Comment on above: Performed By: #### Shira WOODALL PINR, 30289-2 #### [facility] ([id number]) [address], [address] [place] [address] ETHANOLon 05-08-2024 Ethanol [Mass/Vol] mg/dL Normal 0.00-0.08 [facility] Comment on above: Result Comment: This report is intended for use in clinical monitoring or management of patients. Performed By: #### C TALISHA, PINR, 83310-7 #### [facility] ([id number]) [address], [address] [place] [address] Electrolyte panelon 05-09-19 Anion gap [Moles/Vol] 6 mmol/L 5 - 15 mmol/L [facility] Chloride [Moles/Vol] 97 mmol/L Low 98 - 10 9 mmol/L [facility] CO2 [Moles/Vol] 26 mmol/L 22 - 32 mmol/L [facility] Interpretation and review of laboratory results Abnormal [facility] Potassium [Moles/Vol] 4.3 mmol/L 3.5 - 5.0 mmol/L [facility] Sodium [Moles/Vol] 129 mmol/L Low 134 - 146 mmol/L [facility] Anion gap [Moles/Vol] 8 mmol/L 5 - 15 mmol/L [facility] Chloride [Moles/Vol] 95 mmol/L Low 98 - 10 9 mmol/L [facility] CO2 [Moles/Vol] 24 mmol/L 22 - 32 mmol/L [facility] Interpretation and review of laboratory results Abnormal [facility] Potassium [Moles/Vol] 4 mmol/L 3.5 - 5.0 mmol/L [facility] Sodium [Moles/Vol] 127 mmol/L Low 134 - 146 mmol/L [facility] Ethanolon 05-08-2024 Ethanol [Mass/Vol] g/dL 0.00 - 0. 08 g/dL [facility] HGB A1C (GLYCO-HGB)on 2024 Glucose [Mass/Vol] 120 mg/dL Normal [facility] Comment on above: Performed By: #### C TALISHA, PINR, 09480-9 #### [facility] ([id number]) [address], [address] [place] [address] HbA1c (Bld) [Mass fraction] 5.8 % High 4.4-5.6 [facility] Comment on above: Result Comment: NOTE ADA Guidelines Result HgbA1c Normal : less than 5.7 % Prediabetes : 5.7 % to 6.4 % Diabetes : > 6.4 % Use with caution in patients with abnormal hemoglobin variants as the half-life of red blood cells and in vivo glycation rates are affected. Performed By: #### C KEVIN WOODALL, 70176-3 #### [facility] ([id number]) [address], [address] [place] [address] Hemoglobin A1con 05-08-2024 Average glucose Estimated from glycated hemoglobin (Bld) [Mass/Vol] 120 mg/dL [facility] HbA1c (Bld) [Mass fraction] 5.8 % High 4.4 - 5.6 % [facility] Interpretation and review of laboratory results Abnormal [facility] Heparin unfractionated Chrom ogenic method Qn (PPP)on 05-08-2024 Interpretation and review of laboratory results Abnormal [facility] Ionized magnesiumon 05-09-19 Magnesium Ionized ISE (Bld) [Moles/Vol] 0.7 mmol/L 0.45 - 0.74 mmol/L [facility] Lipid 1996 panelon Cholesterol [Mass/Vol] 197 mg/dL 150 - 200 mg/dL [facility] Cholesterol in HDL [Mass/Vol] 45 mg/dL 39 - PINF mg/dL [facility] Cholesterol in LDL [Mass/Vol] 123 mg/dL NINF - 130 mg/dL [facility] Cholesterol in VLDL [Mass/Vol] 29 mg/dL 0 - 30 mg/dL [facility] Cholesterol.total/Nubia sterol in HDL [Mass ratio] 4.4 {ratio} 1.0 - 5.0 [facility] Triglyceride [Mass/Vol] 145 mg/dL 27 - 150 mg/dL [facility] Cholesterol [Mass/Vol] 197 mg/dL Normal 150-200 [facility] Comment on above: Performed By: #### C KEVIN WOODALL, 21473-2 #### [facility] ([id number]) [address], [address] [place] [address] Cholesterol in HDL [Mass/Vol] 45 mg/dL Normal >39 [facility] Comment on above: Result Comment: HDL <40 mg/dL - High Risk HDL > or = 40mg/dL- Desirable HDL >60 mg/dL - Negative Risk Performed By: #### Shira WOODALL, PINR, 59987-8 #### [facility] ([id number]) [address], [address] [place] [address] Cholesterol in LDL [Mass/Vol] 123 mg/dL Normal <130 [facility] Comment on above: Result Comment: LDL <100 mg/dL - Desirable LDL >160 mg/dL - High Risk Performed By: #### Shira WOODALL PINR, 24116-3 #### [facility] ([id number]) [address], [address] [place] [address] Cholesterol in VLDL [Mass/Vol] 29 mg/dL Normal 0-30 [facility] Comment on above: Performed By: #### SURENDRA Silva BCAR, 84857-1 #### [facility] ([id number]) [address], [address] [place] [address] CHOLESTEROL:HDL 4.4 Normal 1.0-5.0 [facility] Comment on above: Performed By: #### Shira WOODALL PINR, 66412-2 #### [facility] ([id number]) [address], [address] [place] [address] Triglyceride [Mass/Vol] 145 mg/dL Normal 27-150 [facility] [place] Comment on above: Performed By: #### Shira WOODALL, PINR, 39832-4 #### [facility] ([id number]) [address], [address] [place] [address] MAGNESIUMon 05-08-2024 Magnesium [Mass/Vol] 1.8 mg/dL Normal 1.8-2.6 [facility] Comment on above: Performed By: #### KEVIN Silva BCA, 56211-4 #### [facility] ([id number]) [address], [address] [place] [address] Magnesiumon 05-08-2024 Magnesium [Mass/Vol] 1.8 mg/dL 1.8 - 2 .6 mg/dL [facility] Magnesium Ionized ISE (Bld) [Moles/Vol]on 05-08-2024 [facility] Magnesium [Moles/Vol] 0.70 mmol/L Normal 0.45-0.74 [facility] Comment on above: Result Comment: NEW REFERENCE RANGE Performed By: #### KEVIN Silva BCA, 63214-6 #### [facility] ([id number]) [address], [address] [place] [address] No Panel Informationon 05-08 [facility] Osmolalityon 05-08-2024 Osmolality [Osmolality] 256 mosm/kg Low [facility] Osmolality (U) [Osmolality]o n 05-08-2024 [facility] URINE OSMOLALITY 353 mOsm/kg H2 Normal 300-1300 [facility] Comment on above: Performed By: #### KEVIN Silva BCA 29387-7 #### [facility] ([id number]) [address], [address] [place] [address] Osmolality [Osmolality]on Interpretation and review of laboratory results Abnormal [facility] OSMOLALITY 256 mOsm/kg H2 Low 280-300 [facility] Comment on above: Performed By: #### KEVIN Silva BCA, 96003-4 #### [facility] ([id number]) [address], [address] [place] [address] Osmolality, urineon 05-09-19 Osmolality (U) [Osmolality] 353 mosm/kg [facility] Sodiumon 05-08-2024 Sodium [Moles/Vol] 126 mmol/L Low 134 - 146 mmol/L [facility] Sodium (U) [Moles/Vol]on [facility] URINE SODIUM,RANDOM <10 Normal [facility] Comment on above: Performed By: #### Shira BCA, PINR, 56586-7 #### [facility] ([id number]) [address], [address] [place] [address] Sodium [Moles/Vol]on 025 Interpretation and review of laboratory results Abnormal [facility] Sodium, urine, randomon 04-14 Sodium (U) [Moles/Vol] mmol/L mmol/L Pr [facility] THYROID PROFILEon 05-08-2024 Free T4 [Mass/Vol] 1.07 ng/dL Normal 0.61-1.60 [facility] Comment on above: Performed By: #### Shira BCA, PINR, 59529-8 #### [facility] ([id number]) [address], [address] [place] [address] TSH 1.49 uIU/mL Normal 0.49-4.67 [facility] Comment on above: Performed By: #### Shira BCA, PINR, 87284-0 #### [facility] ([id number]) [address], [address] [place] [address] Thyroid profile includes TSH FT4on 05-08-2024 Free T4 [Mass/Vol] 1.07 ng/dL 0.61 - 1. 60 ng/dL [facility] TSH Qn 1.49 m[IU]/L [facility] Troponin I, High Sensitivity 3 Houron 05-08-2024 Troponin I.cardiac High sensitivity method [Mass/Vol] 14382 ng/L Critically high NINF - 16 ng/L [facility] Troponin I.cardiac High sensitivity method [Mass/Vol] 39083 ng/L Critically high NINF - 16 ng/L [facility] Troponin I.cardiac High sensitivity method [Mass/Vol] 87326 ng/L Critically high NINF - 16 ng/L [facility] Troponin I.cardiac High sens itivity method [Mass/Vol]on 05-08-2024 Interpretation and review of laboratory results Abnormal [facility] 3 HOUR TROP I, HIGH SENSITIVITY 48701 ng/L Critically high <16 [facility] Comment on above: Result Comment: Elevations of hs-Troponin may be due to causes other than myocardial ischemia. Recommend serial hs-Troponin testing be performed. For the initial evaluation and management of chest pain patients, refer to the algorithms linked below. Emergency Patient: [email or web address] [place]/[id number]=[email or web address] &uh=acaea Inpatient: [email or web address] &[email or web address] Performed By: #### C KEVIN WOODALL, 46601-5 #### [facility] ([id number]) [address], [address] [place] [address] Interpretation and review of laboratory results Abnormal [facility] 3 HOUR TROP I, HIGH SENSITIVITY 54192 ng/L Critically high <16 [facility] Comment on above: Result Comment: Elevations of hs-Troponin may be due to causes other than myocardial ischemia. Recommend serial hs-Troponin testing be performed. For the initial evaluation and management of chest pain patients, refer to the algorithms linked below. Emergency Patient: [email or web address] &[email or web address] Inpatient: [email or web address] &[email or web address] Performed By: #### C KEVIN WOODALL, 19505-7 #### [facility] ([id number]) [address], [address] [place] [address] Interpretation and review of laboratory results Abnormal [facility] 3 HOUR TROP I, HIGH SENSITIVITY 71658 ng/L Critically high <16 [facility] Comment on above: Result Comment: Elevations of hs-Troponin may be due to causes other than myocardial ischemia. Recommend serial hs-Troponin testing be performed. For the initial evaluation and management of chest pain patients, refer to the algorithms linked below. Emergency Patient: [email or web address] &[email or web address] Inpatient: [email or web address] &[email or web address] Performed By: #### C KEVIN WOODALL, 93170-1 #### [facility] ([id number]) [address], [address] [place] [address] URIC ACIDon 05-08-2024 Urate [Mass/Vol] 3.7 mg/dL Normal 2.6-7.2 [facility] Comment on above: Performed By: #### C TALISHA PINDanny, 96443-4 #### [facility] ([id number]) [address], [address] [place] [address] Uric acidon 05-08-2024 Urate [Mass/Vol] 3.7 mg/dL 2.6 - 7.2 mg/dL [facility] Vitamin D 25 hydroxyon 05-08 Vitamin D+Metabolites [Mass/Vol] 7.6 ng/mL Low 30 - 100 ng/mL [facility] Vitamin D+Metabolites [Mass/ Vol]on 05-08-2024 Interpretation and review of laboratory results Abnormal [facility] VITAMIN D 25 HYD TOT 7.6 ng/mL Low 30-100 [facility] Comment on above: Result Comment: Vitamin D status 25 [place] Vitamin D Deficiency <20 ng/mL Insufficiency 20-29 ng/mL Sufficiency 30-100 ng/mL Toxicity >100 ng/mL NOTE: A pediatric reference range has not been established by the network lead of this kit. The [place] [employer] recommends a Vitamin D level of = or >20ng/mL in infants and children. Performed By: #### C BCA, PINR, 34563-9 #### [facility] ([id number]) [address], [address] [place] [address] APTTon 05-07-2024 aPTT Coag (PPP) [Time] 124 s Critically high [facility] ARTERIAL CODEon 05-07-2024 PRACHI'S TEST Pass Normal [facility] Comment on above: Performed By: #### I CODE #### [facility] ([id number]) [address] [place] [address] BASE,DEFICIT 2.0 MMOL/L Normal 0.0-2.0 [facility] Comment on above: Performed By: #### I CODE #### [facility] ([id number]) [address] [place] [address] Body temperature 98.6 [degF] Normal 37.0 [facility] Comment on above: Performed By: #### I CODE #### [facility] ([id number]) [address] [place] [address] Glucose [Mass/Vol] 151 mg/dL High 65-99 [facility] Comment on above: Performed By: #### I CODE #### [facility] ([id number]) [address] [place] [address] HCO3 (Bld) [Moles/Vol] 21.3 mmol/L Low 22-26 [facility] [place] Comment on above: Performed By: #### I CODE #### [facility] ([id number]) [address] [place] [address] Hematocrit (Bld) [Volume fraction] 40 % Normal 35-47 [facility] Comment on above: Performed By: #### I CODE #### [facility] ([id number]) [address] [place] [address] Oxygen (Bld) [Partial pressure] 79 mm[Hg] Low 80-100 [facility] Comment on above: Performed By: #### I CODE #### [facility] ([id number]) [address] [place] [address] Oxygen saturation in Blood 96.0 % Normal >90 [facility] Comment on above: Performed By: #### I CODE #### [facility] ([id number]) [address] [place] [address] OXYGEN SOURCE NC Normal [facility] Comment on above: Performed By: #### I CODE #### [facility] ([id number]) [address] [place] [address] PCO2 32.8 MMHG Low 35-45 [facility] Comment on above: Performed By: #### I CODE #### [facility] ([id number]) [address] [place] [address] pH (Bld) 7.421 [pH] Normal 7.350-7.450 [facility] Comment on above: Performed By: #### I CODE #### [facility] ([id number]) [address] [place] [address] PORTABLE ICA 4.5 mg/dL Normal 4.5-5.3 [facility] Comment on above: Performed By: #### I CODE #### [facility] ([id number]) [address] [place] [address] Potassium [Moles/Vol] 3.6 mmol/L Normal 3.5-5.0 [facility] Comment on above: Performed By: #### I CODE #### [facility] ([id number]) [address] [place] [address] SAMPLE SITE LRad Normal [facility] Comment on above: Performed By: #### I CODE #### [facility] ([id number]) [address] [place] [address] SAMPLE TYPE ARTERIAL Normal [facility] Comment on above: Performed By: #### I CODE #### [facility] ([id number]) [address] [place] [address] Sodium [Moles/Vol] 117 mmol/L Critically low 134-146 [facility] Comment on above: Performed By: #### I CODE #### [facility] ([id number]) [address] [place] [address] CBC AND AUTO DIFFon 05-08-19 25 ABSOLUTE BASOPHIL 0.0 X10E9/L Normal 0.0-0.2 [facility] Comment on above: Performed By: #### C TALISHA PINR, 59582-4 #### [facility] ([id number]) [address], [address] [place] [address] ABSOLUTE NEUTROPHIL 14.9 X10E9/L High 1.5-6.6 [facility] Comment on above: Performed By: #### Shira WOODALL, PINR, 95428-9 #### [facility] ([id number]) [address], [address] [place] [address] Basophils/100 WBC (Bld) 0.2 % Normal [facility] [place] Comment on above: Performed By: #### C TALISHA, PINR, 40825-5 #### [facility] ([id number]) [address], [address] [place] [address] Eosinophils (Bld) [#/Vol] 0.0 10*3/uL Normal 0.0-0.4 [facility] Comment on above: Performed By: #### Shira WOODALL, PINR, 43527-5 #### [facility] ([id number]) [address], [address] [place] [address] Eosinophils/100 WBC (Bld) 0.0 % Normal [facility] Comment on above: Performed By: #### Shira WOODALL PINR, 86210-4 #### [facility] ([id number]) [address], [address] [place] [address] Erythrocyte distribution width (RBC) [Ratio] 12.8 % Normal 11.5-15.0 [facility] Comment on above: Performed By: #### Shira WOODALL PINR, 08929-4 #### [facility] ([id number]) [address], [address] [place] [address] Hematocrit (Bld) [Volume fraction] 37.8 % Normal 35-47 [facility] Comment on above: Performed By: #### Shira WOODALL PINR, 91540-3 #### [facility] ([id number]) [address], [address] [place] [address] Hemoglobin (Bld) [Mass/Vol] 13.3 g/dL Normal 11.7-15.5 [facility] Comment on above: Performed By: #### Shira WOODALL, PINR, 88952-1 #### [facility] ([id number]) [address], [address] [place] [address] Lymphocytes (Bld) [#/Vol] 1.4 10*3/uL Normal 1.0-3.5 [facility] Comment on above: Performed By: #### Shira WOODALL, PINR, 44663-3 #### [facility] ([id number]) [address], [address] [place] [address] Lymphocytes/100 WBC (Bld) 8.1 % Normal [facility] Comment on above: Performed By: #### Shira WOODALL, PINR, 02156-3 #### [facility] ([id number]) [address], [address] [place] [address] MCH (RBC) [Entitic mass] 33.5 pg Normal 27-34 [facility] Comment on above: Performed By: #### KEVIN Silva BCA, 68966-9 #### [facility] ([id number]) [address], [address] [place], [place] [address] MCHC (RBC) [Mass/Vol] 35.2 g/dL Normal 32-36 [facility] Comment on above: Performed By: #### KEVIN Silva BCA, 42589-1 #### [facility] ([id number]) [address], [address] [place] [address] MCV (RBC) [Entitic vol] 95 fL Normal 80-100 [facility] Comment on above: Performed By: #### KEVIN Silva BCA, 18778-5 #### [facility] ([id number]) [address], [address] [place] [address] Monocytes (Bld) [#/Vol] 1.4 10*3/uL High 0-0.9 [facility] Comment on above: Performed By: #### KEVIN Silva BCA, 14417-8 #### [facility] ([id number]) [address], [address] [place] [address] Monocytes/100 WBC (Bld) 7.7 % Normal [facility] [place] Comment on above: Performed By: #### KEVIN Silva BCA, 43886-7 #### [facility] ([id number]) [address], [address] [place] [address] Neutrophils/100 WBC (Bld) 84.0 % Normal [facility] Comment on above: Performed By: #### KEVIN Silav BCA, 28015-9 #### [facility] ([id number]) [address], [address] [place] [address] Platelet mean volume (Bld) [Entitic vol] 8.5 fL Normal 7-12 [facility] Comment on above: Performed By: #### Shira WOODALL, PINR, 79576-2 #### [facility] ([id number]) [address], [address] [place] [address] Platelets (Bld) [#/Vol] 270 10*3/uL Normal 150-450 [facility] Comment on above: Performed By: #### Shira WOODALL, PINR, 92068-7 #### [facility] ([id number]) [address], [address] [place] [address] RBC COUNT 3.98 X10E12/L Normal 3.80-5.20 [facility] Comment on above: Performed By: #### Shira WOODALL, PINR, 56860-4 #### [facility] ([id number]) [address], [address] [place] [address] WBC (Bld) [#/Vol] 17.7 10*3/uL High 4.0-11.0 [facility] Comment on above: Performed By: #### Shira WOODALL, PINR, 69710-6 #### [facility] ([id number]) [address], [address] [place] [address] CBC auto differentialon 04-14 Basophils (Bld) [#/Vol] 0 10*3/uL P [facility] Basophils/100 WBC (Bld) 0.2 % [facility] Eosinophils (Bld) [#/Vol] 0 10*3/uL [facility] Eosinophils/100 WBC (Bld) 0 % [facility] Erythrocyte distribution width (RBC) [Ratio] 12.8 % 11.5 - 15.0 % [facility] Hematocrit (Bld) [Volume fraction] 37.8 % 35 - 47 % [facility] Hemoglobin (Bld) [Mass/Vol] 13.3 g/dL 11.7 - 15.5 g/dL [facility] Interpretation and review of laboratory results Abnormal [facility] Lymphocytes (Bld) [#/Vol] 1.4 10*3/uL [facility] Lymphocytes/100 WBC (Bld) 8.1 % [facility] MCH (RBC) [Entitic mass] 33.5 pg 27 - 34 pg [facility] MCHC (RBC) [Mass/Vol] 35.2 g/dL 32 - 36 g/dL [facility] MCV (RBC) [Entitic vol] 95 fL 80 - 100 [facility] Monocytes (Bld) [#/Vol] 1.4 10*3/uL High [facility] Monocytes/100 WBC (Bld) 7.7 % P [facility] Neutrophils (Bld) [#/Vol] 14.9 10*3/uL High [facility] Neutrophils/100 WBC (Bld) 84 % [facility] Platelet mean volume (Bld) [Entitic vol] 8.5 fL 7 - 12 fL [facility] Platelets (Bld) [#/Vol] 270 10*3/uL [facility] RBC (Bld) [#/Vol] 3.98 10*6/uL [facility] WBC corrected for nucl RBC Auto (Bld) [#/Vol] 17.7 High [facility] COMPREHENSIVE METABOLIC PANE Brock 05-07-2024 Albumin [Mass/Vol] 3.6 g/dL Normal 3.2-5.3 [facility] Comment on above: Performed By: #### C LUCERO, , THYR #### [facility] ([id number]) [address], [address] [place] [address] ALP [Catalytic activity/Vol] 63 U/L Normal 39-130 [facility] Comment on above: Performed By: #### C LUCERO, , THYR #### [facility] ([id number]) [address] [place] [address] ALT [Catalytic activity/Vol] 31 U/L Normal 0-31 [facility] Comment on above: Performed By: #### Shira BARKER, , THYR #### [facility] ([id number]) [address] [place] [address] Anion gap [Moles/Vol] 7 mmol/L Normal 5-15 [facility] Comment on above: Performed By: #### C LUCERO, , THYR #### [facility] ([id number]) [address] [place], [place] [address] AST [Catalytic activity/Vol] 124 U/L High 0-41 [facility] Comment on above: Performed By: #### C LUCERO, , THYR #### [facility] ([id number]) [address], [address] [place], [place] [address] Bilirubin [Mass/Vol] 0.8 mg/dL Normal 0.3-1.2 [facility] Comment on above: Performed By: #### Shira BARKER, , THYR #### [facility] ([id number]) [address] [place] [address] Calcium [Mass/Vol] 8.5 mg/dL Normal 8.5-10.5 [facility] Comment on above: Performed By: #### Shira BARKER, , THYR #### [facility] ([id number]) [address], [address] [place] [address] Chloride [Moles/Vol] 88 mmol/L Low 98-109 [facility] Comment on above: Performed By: #### C LUCERO, , THYR #### [facility] ([id number]) [address] [place] [address] CO2 [Moles/Vol] 28 mmol/L Normal 22-32 [facility] Comment on above: Performed By: #### Shira BARKER, , THYR #### [facility] ([id number]) [address] [place] [address] Creatinine [Mass/Vol] 0.64 mg/dL Normal 0.40-1.00 [facility] Comment on above: Result Comment: METH OD TRACEABLE TO IDMS STANDARD Performed By: #### C LUCERO, , THYR #### [facility] ([id number]) [address] [place] [address] eGFR (CKD-EPI) NON-RACE DEPENDENT >90 Normal >59 [facility] Comment on above: Result Comment: Reported eGFR is based on the CKD-EPI 2020 equation that does not use a race coefficient. Performed By: #### C LUCERO , THYR #### [facility] ([id number]) [address] [facility] [address] [place] [address] Glucose [Mass/Vol] 124 mg/dL High 65-99 [facility] Comment on above: Performed By: #### Shira BARKER, , THYR #### [facility] ([id number]) [address], [address] [place] [address] Potassium [Moles/Vol] 3.9 mmol/L Normal 3.5-5.0 [facility] Comment on above: Performed By: #### Shira BARKER, , THYR #### [facility] ([id number]) [address], [address] [place] [address] Protein [Mass/Vol] 6.3 g/dL Normal 6.0-8.0 [facility] Comment on above: Performed By: #### C LUCERO , THYR #### [facility] ([id number]) [address] [place] [address] Sodium [Moles/Vol] 123 mmol/L Low 134-146 [facility] Comment on above: Performed By: #### Shira BARKER, , THYR #### [facility] ([id number]) [address] [place] [address] Urea nitrogen [Mass/Vol] 12 mg/dL Normal 5-27 [facility] Comment on above: Performed By: #### C , 66565-8, THYR #### [facility] ([id number]) [address] [place] [address] CT BRAIN WO CONTon [address] BRAIN WO [...] Amaro MD on 05/07/2024 2:42 PM Normal [facility] CT CERVICAL SPINE WO CONTon 05-07-2024 [...] Link MD on 05/07/2024 2:45 PM Normal [facility] Cardiac Invasiveon [facility] XPER [facility] Radiology Study observation (narrative) [facility] Cardiac echo study Procedure on 05-07-2024 Radiology Study observation (narrative) [facility] Comprehensive metabolic pane brock 05-07-2024 Albumin [Mass/Vol] 3.6 g/dL 3.2 - 5.3 g/dL [facility] ALP [Catalytic activity/Vol] 63 U/L 39 - 130 U/L [facility] ALT No additional P-5'-P [Catalytic activity/Vol] 31 U/L 0 - 31 U/L [facility] Anion gap [Moles/Vol] 7 mmol/L 5 - 15 mmol/L [facility] AST [Catalytic activity/Vol] 124 U/L High 0 - 41 U/L [facility] Bilirubin [Mass/Vol] 0.8 mg/dL 0.3 - 1 .2 mg/dL [facility] Calcium [Mass/Vol] 8.5 mg/dL 8.5 - 10. 5 mg/dL [facility] Chloride [Moles/Vol] 88 mmol/L Low 98 - 10 9 mmol/L [facility] CO2 [Moles/Vol] 28 mmol/L 22 - 32 mmol/L [facility] Creatinine [Mass/Vol] 0.64 mg/dL 0.40 - 1.00 mg/dL [facility] eGFR (CKD-EPI)non-race dependent - PINF [facility] Glucose [Mass/Vol] 124 mg/dL High 65 - 99 mg/dL [facility] Interpretation and review of laboratory results Abnormal [facility] Potassium [Moles/Vol] 3.9 mmol/L 3.5 - 5.0 mmol/L [facility] Protein [Mass/Vol] 6.3 g/dL 6.0 - 8.0 g/dL [facility] Sodium [Moles/Vol] 123 mmol/L Low 134 - 146 mmol/L [facility] Urea nitrogen [Mass/Vol] 12 mg/dL 5 - 27 mg/dL [facility] ECG 12 leadon 05-07-2024 TRACEMASTERVUE [facility] EKG 12 leadon 05-07-2024 TRACEMASTERVUE [facility] Glucose Glucometer (BldC) [M ass/Vol]on 05-07-2024 Glucose [Mass/Vol] 159 mg/dL High 65 - 99 mg/dL [facility] Interpretation and review of laboratory results Abnormal [facility] Glucose [Mass/Vol] 159 mg/dL High 65-99 [facility] Heparin unfractionated Chrom ogenic method Qn (PPP)on 05-07-2024 ANTI XA UFH <0.04 Low 0.30-0.70 [facility] Comment on above: Result Comment: Opti mal time for testing is 6 hrs post dosage This test is specific for monitoring patients on UFH, and is not recommended for use with other Anti-Xa medications. Performed By: #### 3 274-8, 2951-2 #### [facility] ([id number]) [address], [address] [place] [address] MAGNESIUMon 05-07-2024 Magnesium [Mass/Vol] 1.8 mg/dL Normal 1.8-2.6 [facility] Comment on above: Performed By: #### C , 04611-7, THYR #### [facility] ([id number]) [address], [address] [place] [address] Magnesiumon 05-07-2024 Magnesium [Mass/Vol] 1.8 mg/dL 1.8 - 2 .6 mg/dL [facility] No Panel Informationon 05-07 [facility] Interpretation and review of laboratory results Abnormal [facility] POCT ABG with NA, K, GLU, IC A and HCTon 05-07-2024 Arterial patency Wrist artery --pre arterial puncture Pass [facility] Base deficit (Bld) [Moles/Vol] 2 mmol/L [facility] Calcium.ionized (Bld) [Moles/Vol] 4.5 mg/dL 4.5 - 5.3 mg/dL [facility] CO2 (Bld) [Partial pressure] 32.8 mm[Hg] Low [facility] Glucose [Mass/Vol] 151 mg/dL High 65 - 99 mg/dL [facility] HCO3 (Bld) [Moles/Vol] 21.3 mmol/L Low P [facility] Hematocrit (Bld) [Volume fraction] 40 % 35 - 47 % [facility] Interpretation and review of laboratory results Abnormal [facility] Oxygen (Bld) [Partial pressure] 79 mm[Hg] Low [facility] Oxygen therapy source and amount [CARE] NC [facility] pH (Bld) 7.421 [pH] 7.350 - 7.450 [facility] Potassium [Moles/Vol] 3.6 mmol/L 3.5 - 5.0 mmol/L [facility] Sodium [Moles/Vol] 117 mmol/L Critically low 134 - 1 46 mmol/L [facility] Specimen site Narrative LRad P [facility] Specimen type Nom (Spec) ARTERIAL [facility] PROTIME AND INRon 05-07-2024 INR Coag (PPP) [Relative time] 1.2 {INR} Normal 0.9-1.2 [facility] Comment on above: Performed By: #### C TALISHA PINR, 81514-0 #### [facility] ([id number]) [address], [address] [place] [address] PT Coag (PPP) [Time] 13.4 s High 9.8-13.2 [facility] Comment on above: Performed By: #### C TALISHA, PINR, 33235-3 #### [facility] ([id number]) [address], [address] [place] [address] Protime & INRon 05-07-2024 INR Coag (PPP) [Relative time] 1.2 {INR} [facility] PT Coag (PPP) [Time] 13.4 s High [facility] SODIUMon 05-07-2024 Sodium [Moles/Vol] 126 mmol/L Low 134-146 [facility] Comment on above: Performed By: #### C BCA, PINR, 19057-8 #### [facility] ([id number]) [address], [address] [place] [address] THYROID PROFILEon 05-07-2024 Free T4 [Mass/Vol] 0.97 ng/dL Normal 0.61-1.60 [facility] Comment on above: Performed By: #### [place], 408[address]-6, THYR #### [facility] ([id number]) [address], [address] [place] [address] TSH 0.65 uIU/mL Normal 0.49-4.67 [facility] Comment on above: Performed By: #### [place], 30240-9, THYR #### [facility] ([id number]) [address], [address] [place] [address] Thyroid profile includes TSH FT4on 05-07-2024 Free T4 [Mass/Vol] 0.97 ng/dL 0.61 - 1. 60 ng/dL [facility] TSH Qn 0.65 m[IU]/L [facility] Troponin I, High Sensitivity on 05-07-2024 Troponin I.cardiac High sensitivity method [Mass/Vol] 83774 ng/L Critically high NINF - 16 ng/L [facility] Troponin I.cardiac High sens itivity method [Mass/Vol]on 05-07-2024 Interpretation and review of laboratory results Abnormal [facility] TROPONIN I, HIGH SENSITIVITY 92353 ng/L Critically high <16 [facility] Comment on above: Result Comment: Elevations of hs-Troponin may be due to causes other than myocardial ischemia. Recommend serial hs-Troponin testing be performed. For the initial evaluation and management of chest pain patients, refer to the algorithms linked below. Emergency Patient: [email or web address] Inpatient: [email or web address] Performed By: #### [id number] #### [facility] ([id number]) [address], [address] [place] [address] XR CHEST 1 VWon 05-07-2024 XR CHEST 1 VW XR CHEST 1 VW Single view chest XR CHEST 1 VW History: dizziness Comparison: June 30, 2022 Impression: * No consolidation or pleural fluid. No acute findings. Finalized by Nnamdi Amaro MD on 05/07/2024 2:46 PM Normal [facility] XR PELVIS 1 OR 2 VWSon 05-07 XR PELVIS 1 OR 2 VWS XR PELVIS 1 OR 2 VW S XR PELVIS 1 OR 2 VWS fall Pelvic trauma Findings: There is grossly no fracture or destructive lesion. Impression: * No acute findings. * Consider MRI if you suspect occult process. Finalized by Nnamdi Amaro MD on 05/07/2024 2:43 PM Normal [facility] aPTT Coag (PPP) [Time]on aPTT Coag (Bld) [Time] 124 s Critically high 26-37 [facility] Comment on above: Performed By: #### C BCA, PINR, 44706-9 #### [facility] ([id number]) [address], [address] [place] [address] CBC AND AUTO DIFFon 04-06-19 25 ABSOLUTE BASOPHIL 0.1 X10E9/L Normal 0.0-0.2 [facility] Comment on above: Performed By: #### C BCA, HA1C, CMP, TSHR, 2132-9, 2276-4, FEPR, 2284-8, 33437-8 #### [facility] ([id number]) [address], [address] [place] [address] #### 35102-4 #### [facility] ([id number]) [address] [place] [address] 11368 ABSOLUTE NEUTROPHIL 4.2 X10E9/L Normal 1.5-6.6 [facility] Comment on above: Performed By: #### C BCA, HA1C, CMP, TSHR, 2131-10, 6-4, FEPR, 4-8, 93492-7 #### [facility] ([id number]) [address], [address] [place] [address] #### 49424-8 #### [facility] ([id number]) [address] [place] [address] 12741 Basophils/100 WBC (Bld) 1.3 % Normal [facility] Comment on above: Performed By: #### C BCA, HA1C, CMP, TSHR, 2131-10, 2275-4, FEPR, 2283-8, 04536-9 #### [facility] ([id number]) [address] [facility] [address], [address] [place] [address] #### 88808-1 #### [facility] ([id number]) [address] [place] [address] 71648 Eosinophils (Bld) [#/Vol] 0.1 10*3/uL Normal 0.0-0.4 [facility] Comment on above: Performed By: #### C BCA, HA1C, CMP, TSHR, 2131-10, 2275-4, FEPR, 2283-8, 98205-7 #### [facility] ([id number]) [address], [address] [place] [address] #### 05408-9 #### [facility] ([id number]) [address] [place] [address] 55098 Eosinophils/100 WBC (Bld) 1.8 % Normal [facility] Comment on above: Performed By: #### C BCA, HA1C, CMP, TSHR, 2131-10, 6-4, FEPR, 2284-8, 72130-3 #### [facility] ([id number]) [address], [address] [place] [address] #### 10941-4 #### [facility] ([id number]) [address] [place] [address] 78489 Erythrocyte distribution width (RBC) [Ratio] 13.6 % Normal 11.5-15.0 [facility] Comment on above: Performed By: #### C BCA, HA1C, CMP, TSHR, 2131-9, 6-4, FEPR, 2284-8, 88852-4 #### [facility] ([id number]) [address], [address] [address] #### 02188-5 #### [facility] ([id number]) [address] [place] [address] 21553 Hematocrit (Bld) [Volume fraction] 40.1 % Normal 35-47 [facility] Comment on above: Performed By: #### C BCA, HA1C, CMP, TSHR, 2131-, 6-4, FEPR, 2284-8, 02182-2 #### [facility] ([id number]) [address], [address] [address] #### 66627-4 #### [facility] ([id number]) [address] [place] [address] 65543 Hemoglobin (Bld) [Mass/Vol] 14.1 g/dL Normal 11.7-15.5 [facility] Comment on above: Performed By: #### C BCA, HA1C, CMP, TSHR, 2131-, 6-4, FEPR, 2284-8, 11496-3 #### [facility] ([id number]) [address], [address] [place] [address] #### 80079-0 #### [facility] ([id number]) [address] [place] [address] 72782 Lymphocytes (Bld) [#/Vol] 1.4 10*3/uL Normal 1.0-3.5 [facility] Comment on above: Performed By: #### C BCA, HA1C, CMP, TSHR, 2131-9, 6-4, FEPR, 4-8, 82694-5 #### [facility] ([id number]) [address], [address] [place] [address] #### 38832-2 #### [facility] ([id number]) [address] [place] [address] 03994 Lymphocytes/100 WBC (Bld) 23.1 % Normal [facility] Comment on above: Performed By: #### C BCA, HA1C, CMP, TSHR, 2131-10, 6-, FEPR, 2283-, 05113-4 #### [facility] ([id number]) [address], [address] [place] [address] #### 02669-2 #### [facility] ([id number]) [address] [place] [address] 30200 MCH (RBC) [Entitic mass] 34.6 pg High 27-34 [facility] Comment on above: Performed By: #### C BCA, HA1C, CMP, TSHR, 2131-10, 6-4, FEPR, 4-8, 99283-3 #### [facility] ([id number]) [address], [address] [place] [address] #### 06032-7 #### [facility] ([id number]) [address] [place] [address] 27957 MCHC (RBC) [Mass/Vol] 35.2 g/dL Normal 32-36 [facility] Comment on above: Performed By: #### C BCA, HA1C, CMP, TSHR, 2131-9, 6-4, FEPR, 2284-8, 70382-6 #### [facility] ([id number]) [address], [facility] [address] [place] [address] #### 13804-2 #### [facility] ([id number]) [address] [place] [address] 80649 MCV (RBC) [Entitic vol] 98 fL Normal 80-100 [facility] Comment on above: Performed By: #### C BCA, HA1C, CMP, TSHR, 2131-, 6-, FEPR, 4-8, 82362-6 #### [facility] ([id number]) [address] [facility], [address] [address] #### 08609-5 #### [facility] ([id number]) [address] [place] [address] 07403 Monocytes (Bld) [#/Vol] 0.4 10*3/uL Normal 0-0.9 [facility] Comment on above: Performed By: #### C BCA, HA1C, CMP, TSHR, 2131-10, 6-4, FEPR, 2283-8, 14926-2 #### [facility] ([id number]) [address] [facility] [address], [facility] [address] [place] [address] #### 57256-1 #### [facility] ([id number]) [address] [place] [address] 23132 Monocytes/100 WBC (Bld) 6.7 % Normal [facility] Comment on above: Performed By: #### C BCA, HA1C, CMP, TSHR, 2131-, 6-4, FEPR, 2284-8, 07376-5 #### [facility] ([id number]) [address], [address] [place] [address] #### 82356-4 #### [facility] ([id number]) [address] [place] [address] 27861 Neutrophils/100 WBC (Bld) 67.1 % Normal [facility] Comment on above: Performed By: #### C BCA, HA1C, CMP, TSHR, 2132-9, 2276-4, FEPR, 2284-8, 19302-9 #### [facility] ([id number]) [address] [address], [address] [place] [address] #### 11614-7 #### [facility] ([id number]) [address] [place] [address] 88578 Platelet mean volume (Bld) [Entitic vol] 8.2 fL Normal 7-12 [facility] Comment on above: Performed By: #### C BCA, HA1C, CMP, TSHR, 2-9, 2276-4, FEPR, 2284-8, 23310-4 #### [facility] ([id number]) [address] [address], [address] [place] [address] #### 16003-9 #### [facility] ([id number]) [address] [place] [address] 70409 Platelets (Bld) [#/Vol] 266 10*3/uL Normal 150-450 [facility] Comment on above: Performed By: #### C BCA, HA1C, CMP, TSHR, 2132-9, 2276-4, FEPR, 2284-8, 80310-6 #### [facility] ([id number]) [address] [facility], [address] [place] [address] #### 38085-3 #### [facility] ([id number]) [address] [place] [address] 18839 RBC COUNT 4.08 X10E12/L Normal 3.80-5.20 [facility] Comment on above: Performed By: #### C BCA, HA1C, CMP, TSHR, 2-9, 2276-4, FEPR, 2284-8, 16193-5 #### [facility] ([id number]) [address] [facility], [address] [place] [address] #### 23142-0 #### [facility] ([id number]) [address] [place] [address] 00345 WBC (Bld) [#/Vol] 6.2 10*3/uL Normal 4.0-11.0 [facility] Comment on above: Performed By: #### C BCA, HA1C, CMP, TSHR, 2131-9, 6-4, FEPR, 4-8, 10518-6 #### [facility] ([id number]) [address] [place] [address], [address] [place] [address] #### 73440-8 #### [facility] ([id number]) [address] [place] [address] 06480 COMPREHENSIVE METABOLIC PANE Brock 04-06-2024 Albumin [Mass/Vol] 4.2 g/dL Normal 3.2-5.3 [facility] Comment on above: Performed By: #### C BCA, HA1C, CMP, TSHR, 2131-, 6-4, FEPR, 4-8, 83445-9 #### [facility] ([id number]) [address] [place] [address], [address] [place] [address] #### 55444-2 #### [facility] ([id number]) [address] [place] [address] 39207 ALP [Catalytic activity/Vol] 73 U/L Normal 39-130 [facility] Comment on above: Performed By: #### C BCA, HA1C, CMP, TSHR, 2131-9, 6-4, FEPR, 2284-8, 42645-3 #### [facility] ([id number]) [address] [facility], [address] [place] [address] #### 25587-7 #### [facility] ([id number]) [address] [place] [address] 73147 ALT [Catalytic activity/Vol] 8 U/L Normal 0-31 [facility] Comment on above: Performed By: #### C BCA, HA1C, CMP, TSHR, 2132-9, 2276-4, FEPR, 2284-8, 93526-0 #### [facility] ([id number]) [address] [facility], [address] [place] [address] #### 18097-6 #### [facility] ([id number]) [address] [place] [address] 75539 Anion gap [Moles/Vol] 8 mmol/L Normal 5-15 [facility] Comment on above: Performed By: #### C BCA, HA1C, CMP, TSHR, 2-9, 2276-4, FEPR, 2284-8, 23911-3 #### [facility] ([id number]) [address] [place] [address], [address] [place] [address] #### 73653-0 #### [facility] ([id number]) [address] [place] [address] 98758 AST [Catalytic activity/Vol] 16 U/L Normal 0-41 [facility] Comment on above: Performed By: #### C BCA, HA1C, CMP, TSHR, 2132-9, 2276-4, FEPR, 2284-8, 45003-8 #### [facility] ([id number]) [address] [place] [address], [address] [place] [address] #### 56860-4 #### [facility] ([id number]) [address] [place] [address] 59229 Bilirubin [Mass/Vol] 0.3 mg/dL Normal 0.3-1.2 [facility] Comment on above: Performed By: #### C BCA, HA1C, CMP, TSHR, 2-9, 2276-4, FEPR, 2284-8, 50169-0 #### [facility] ([id number]) [address], [address] [place] [address] #### 11827-0 #### [facility] ([id number]) [address] [place] [address] 34908 Calcium [Mass/Vol] 9.0 mg/dL Normal 8.5-10.5 [facility] Comment on above: Performed By: #### C BCA, HA1C, CMP, TSHR, 2131-9, 6-4, FEPR, 4-8, 11315-8 #### [facility] ([id number]) [address] [facility] [address], [address] [place] [address] #### 75566-7 #### [facility] ([id number]) [address] [place] [address] 85974 Chloride [Moles/Vol] 101 mmol/L Normal 98-109 [facility] Comment on above: Performed By: #### C BCA, HA1C, CMP, TSHR, 2131-9, 2276-4, FEPR, 2284-8, 75509-7 #### [facility] ([id number]) [address], [address] [place] [address] #### 25788-8 #### [facility] ([id number]) [address] [place] [address] 39250 CO2 [Moles/Vol] 27 mmol/L Normal 22-32 [facility] Comment on above: Performed By: #### C BCA, HA1C, CMP, TSHR, 2131-9, 2276-4, FEPR, 2284-8, 76144-7 #### [facility] ([id number]) [address], [address] [place] [address] #### 99782-1 #### [facility] ([id number]) [address] [place] [address] 62308 Creatinine [Mass/Vol] 0.67 mg/dL Normal 0.40-1.00 [facility] Comment on above: Result Comment: METH OD TRACEABLE TO IDMS STANDARD Performed By: #### C BCA, HA1C, CMP, TSHR, 2-9, 2276-4, FEPR, 2284-8, 92890-3 #### [facility] ([id number]) [address] [facility], [address] [place] [address] #### 71568-3 #### [facility] ([id number]) [address] [place] [address] 01861 eGFR (CKD-EPI) NON-RACE DEPENDENT >90 Normal >59 [facility] Comment on above: Result Comment: Reported eGFR is based on the CKD-EPI 2020 equation that does not use a race coefficient. Performed By: #### C BCA, HA1C, CMP, TSHR, 2131-9, 6-4, FEPR, 2284-8, 23263-5 #### [facility] ([id number]) [address], [address] [place] [address] #### 30542-7 #### [facility] ([id number]) [address] [place] [address] 35663 Glucose [Mass/Vol] 94 mg/dL Normal 65-99 [facility] Comment on above: Performed By: #### C BCA, HA1C, CMP, TSHR, 2-9, 2276-4, FEPR, 2284-8, 72277-0 #### [facility] ([id number]) [address], [address] [place] [address] #### 65140-6 #### [facility] ([id number]) [address] [place] [address] 27348 Potassium [Moles/Vol] 3.8 mmol/L Normal 3.5-5.0 [facility] Comment on above: Performed By: #### C BCA, HA1C, CMP, TSHR, 2-9, 2276-4, FEPR, 2284-8, 77648-9 #### [facility] ([id number]) [address] [place] [address], [address] [place] [address] #### 51793-0 #### [facility] ([id number]) [address] [place] [address] 28416 Protein [Mass/Vol] 6.8 g/dL Normal 6.0-8.0 [facility] Comment on above: Performed By: #### C BCA, HA1C, CMP, TSHR, 2131-10, 6-4, FEPR, 4-8, 52826-2 #### [facility] ([id number]) [address] [place] [address], [address] [place] [address] #### 22841-9 #### [facility] ([id number]) [address] [place] [address] 95020 Sodium [Moles/Vol] 136 mmol/L Normal 134-146 [facility] Comment on above: Performed By: #### C BCA, HA1C, CMP, TSHR, 2131-9, 6-4, FEPR, 2284-8, 64677-5 #### [facility] ([id number]) [address] [facility], [address] [place] [address] #### 75692-6 #### [facility] ([id number]) [address] [place] [address] 81819 Urea nitrogen [Mass/Vol] 5 mg/dL Normal 5-27 [facility] Comment on above: Performed By: #### C BCA, HA1C, CMP, TSHR, 2132-9, 2276-4, FEPR, 2284-8, 38421-6 #### [facility] ([id number]) [address] [place] [address], [address] [place] [address] #### 19437-5 #### [facility] ([id number]) [address] [place] [address] 30008 FERRITINon 04-06-2024 Ferritin [Mass/Vol] 17 ng/mL Normal 11-307 [facility] Comment on above: Performed By: #### C BCA, HA1C, CMP, TSHR, 2131-9, 2276-4, FEPR, 2284-8, 63071-5 #### [facility] ([id number]) [address] [place] [address], [address] [address] #### 78064-4 #### [facility] ([id number]) [address] [place] [address] 61135 Folate [Mass/Vol]on 04-06-19 25 FOLIC ACID 4.3 ng/mL Low >5.8 [facility] Comment on above: Result Comment: NEW REFERENCE RANGE Performed By: #### C BCA, HA1C, CMP, TSHR, 2-9, 2276-4, FEPR, 2284-8, 04466-7 #### [facility] ([id number]) [address] [place] [address], [facility] [address] [place] [address] #### 46372-5 #### [facility] ([id number]) [address] [place] [address] 85346 HGB A1C (GLYCO-HGB)on 2024 Glucose [Mass/Vol] 123 mg/dL [facility] Comment on above: Performed By: #### C BCA, HA1C, CMP, TSHR, 2132-9, 2276-4, FEPR, 2284-8, 64268-6 #### [facility] ([id number]) [address] [place] [address], [address] [place] [address] #### 41188-3 #### [facility] ([id number]) [address] [place] [address] 83306 HbA1c (Bld) [Mass fraction] 5.9 % High 4.4-5.6 [facility] Comment on above: Result Comment: NOTE ADA Guidelines Result HgbA1c Normal : less than 5.7 % Prediabetes : 5.7 % to 6.4 % Diabetes : > 6.4 % Use with caution in patients with abnormal hemoglobin variants as the half-life of red blood cells and in vivo glycation rates are affected. Performed By: #### C BCA, HA1C, CMP, TSHR, 2-9, 2276-4, FEPR, 2284-8, 36738-4 #### [facility] ([id number]) [address] [place] [address], [address] [place] [address] #### 09312-1 #### [facility] ([id number]) [address] [place] [address] 72822 IRON PROFILEon 04-06-2024 Iron [Mass/Vol] 30 ug/dL Low 50-170 [facility] Comment on above: Performed By: #### C BCA, HA1C, CMP, TSHR, 2-9, 2276-4, FEPR, 2284-8, 11637-6 #### [facility] ([id number]) [address] [place] [address], [address] [place] [address] #### 80033-1 #### [facility] ([id number]) [address] [place] [address] 32774 IRON BINDING 358 ug/dL Normal 250-425 [facility] Comment on above: Performed By: #### C BCA, HA1C, CMP, TSHR, 2132-9, 2276-4, FEPR, 2284-8, 28023-5 #### [facility] ([id number]) [address], [address] [place] [address] #### 64952-0 #### [facility] ([id number]) [address] [place] [address] IRON SATURATION 8 % SATURATION Low 15-50 [facility] Comment on above: Performed By: #### C BCA, HA1C, CMP, TSHR, 2131-10, 2275-4, FEPR, 4-8, 78371-7 #### [facility] ([id number]) [address] [facility], [address] [place] [address] #### 23791-6 #### [facility] ([id number]) [address] [place] [address] 49066 Lipid 1996 panelon 5 Cholesterol [Mass/Vol] 202 mg/dL High 150-200 Pr [facility] Comment on above: Performed By: #### C BCA, HA1C, CMP, TSHR, 2131-10, 2275-05, FEPR, 2283-8, 14233-4 #### [facility] ([id number]) [address], [address] [place] [address] #### 94606-8 #### [facility] ([id number]) [address] [place] [address] 93693 Cholesterol in HDL [Mass/Vol] 58 mg/dL Normal >39 [facility] Comment on above: Result Comment: HDL <40 mg/dL - High Risk HDL > or = 40mg/dL- Desirable HDL >60 mg/dL - Negative Risk Performed By: #### C BCA, HA1C, CMP, TSHR, 2131-10, 6-4, FEPR, 2284-8, 38631-7 #### [facility] ([id number]) [address] [place] [address], [facility] [address] [place] [address] #### 96214-5 #### [facility] ([id number]) [address] [place] [address] 32823 Cholesterol in LDL [Mass/Vol] 133 mg/dL High <130 [facility] Comment on above: Result Comment: LDL <100 mg/dL - Desirable LDL >160 mg/dL - High Risk Performed By: #### C BCA, HA1C, CMP, TSHR, 2131-10, 6-4, FEPR, 2284-8, 00743-7 #### [facility] ([id number]) [address] [place] [address], [address] [place] [address] #### 73164-3 #### [facility] ([id number]) [address] [place] [address] 26106 Cholesterol in VLDL [Mass/Vol] 11 mg/dL Normal 0-30 [facility] Comment on above: Performed By: #### C BCA, HA1C, CMP, TSHR, 2131-10, 2275-4, FEPR, 2284-8, 01563-6 #### [facility] ([id number]) [address] [place] [address], [address] [place] [address] #### 52679-9 #### [facility] ([id number]) [address] [place] [address] 35092 CHOLESTEROL:HDL 3.5 Normal 1.0-5.0 [facility] Comment on above: Performed By: #### C BCA, HA1C, CMP, TSHR, 2131-10, 6-4, FEPR, 2284-8, 36054-0 #### [facility] ([id number]) [address], [address] [place] [address] #### 09873-1 #### [facility] ([id number]) [address] [place] [address] 58720 Triglyceride [Mass/Vol] 56 mg/dL Normal 27-150 [facility] Comment on above: Performed By: #### C BCA, HA1C, CMP, TSHR, 2131-9, 6-4, FEPR, 4-8, 28244-3 #### [facility] ([id number]) [address] [place] [address] #### 86623-1 #### [facility] ([id number]) [address] [place] [address] 40417 TSH WITH REFLEXon 04-06-2024 TSH 2.47 uIU/mL Normal 0.49-4.67 [facility] Comment on above: Performed By: #### C BCA, HA1C, CMP, TSHR, 2131-, 6-4, FEPR, 4-8, 37688-0 #### [facility] ([id number]) [address], [address] [place] [address] #### [id number] #### [facility] ([id number]) [address] [place] [address] Thiamine (Bld) [Moles/Vol]on 04-06-2024 Thiamin (Vitamin B1), WB 78 nmol/L Normal 70-180 [facility] Comment on above: Result Comment: NOTE ADDITIONAL INFORMATION This test was developed and its performance characteristics determined by [facility] in a manner consistent with CLIA requirements. This test has not been cleared or approved by the U.S. Food and Drug Administration. Test Performed by: [facility] [address] [id number] Pulp And Paper Tester: Ester Macdonald Ph.D.; CLIA# [id number] Performed By: #### C BCA, HA1C, CMP, TSHR, 2132-9, 2276-4, FEPR, 2284-8, 01235-1 #### [facility] ([id number]) [address] [place] [address], [address] [place] [address] #### [id number] #### [facility] ([id number]) [address] [place] [address], [place] [address] VITAMIN B12on 04-06-2024 Cobalamin (Vitamin B12) [Mass/Vol] 253 pg/mL Normal 180-914 [facility] Comment on above: Performed By: #### C BCA, HA1C, CMP, TSHR, 2131-9, 6-4, FEPR, 2284-8, 66248-3 #### [facility] ([id number]) [address] [place] [address], [address] [place] [address] #### [id number] #### [facility] ([id number]) [address] [place] [address] A1C with Estimated Average G [facility] 07-09-2021 Glucose [Mass/Vol] 111 mg/dL Normal [facility] Comment on above: Result Comment: PERF ORMED BY: [place] [address] PATHOLOGIST MICA INSPECTOR JONAS BOYCE M.D. Performed By: #### C BC, CMP, A1C WTH eA #### [address] HbA1c (Bld) [Mass fraction] 5.5 % Normal 4.3-5.6 [facility] Comment on above: Result Comment: Incr eased risk for diabetes: 5.7 - 6.4 diabetes: >6.4 glycemic control for adults with diabetes: <7.0 Performed By: #### C BC, CMP, A1C WT eA #### [facility] [address] [place] [address] [facility] Albumin [Mass/volume] in Ser um or PlasmaOrdered By: Joni Branch on 07-09-2021 Albumin [Mass/Vol] 3.7 g/dL 3.2-5.5 [facility] Basophils Auto (Bld) [#/Vol] Ordered By: Joni Branch on 07-09-2021 Basophils (Bld) [#/Vol] 0.0 10*3/uL 0.0-0.2 [facility] Basophils/100 WBC Auto (Bld) Ordered By: Joni Branch on 07-09-2021 Basophils/100 WBC (Bld) 1.0 % F [facility] Bilirubin Test strip Ql (U)O rdered By: Joni Branch on 07-09-2021 Bilirubin Ql (U) Negative Negative [facility] Blood hemoglobin measurement (mass/volume)Ordered By: Joni Branch on 07-09-2021 Hemoglobin (Bld) [Mass/Vol] 13.8 g/dL 11.8-15.4 [facility] Blood leukocytes automated c ount (number/volume)Ordered By: Joni Branch on 07-09-2021 WBC (Bld) [#/Vol] 4.6 10*3/uL 4.5-11.0 [facility] Color Auto (U)Ordered By: Ab jasmine Branch on 07-09-2021 Color (U) Yellow Yellow [facility] Complete Blood Count Auto Di ffon 07-09-2021 Basophils (Bld) [#/Vol] 0.0 10*3/uL Normal 0.0-0.2 [facility] Comment on above: Result Comment: PERF ORMED BY: [facility] [address] [place] [address] PATHOLOGIST MICA INSPECTOR JONAS BOYCE M.D. Performed By: #### C BC, CMP, A1C WTH eA #### [facility] [address] [place] [address] [place] Basophils/100 WBC (Bld) 1.0 % Normal . F [facility] Comment on above: Performed By: #### C BC, CMP, A1C WTH eA #### [facility] [address] [place] [address] [place] Eosinophils (Bld) [#/Vol] 0.2 10*3/uL Normal 0.0-0.45 [facility] Comment on above: Performed By: #### C BC, CMP, A1C WTH eA #### [facility] [address] [place] [address] [place] Eosinophils/100 WBC (Bld) 4.1 % Normal . [facility] Comment on above: Performed By: #### C BC, CMP, A1C WTH eA #### [facility] [address] [place] [address] Erythrocyte distribution width (RBC) [Ratio] 13.2 % Normal 11.9-15.3 [facility] Comment on above: Performed By: #### C BC, CMP, A1C WTH eA #### [facility] [address] [place] [address] [place] Hematocrit (Bld) [Volume fraction] 40.3 % Normal 34.0-46.4 [facility] Comment on above: Performed By: #### C BC, CMP, A1C WTH eA #### [facility] [address] [place] [address] [place] Hemoglobin (Bld) [Mass/Vol] 13.8 g/dL Normal 11.8-15.4 [facility] Comment on above: Performed By: #### C BC, CMP, A1C WTH eA #### [facility] [address] [place] [address] [place] Lymphocytes (Bld) [#/Vol] 1.3 10*3/uL Normal 1.00-4.8 [facility] Comment on above: Performed By: #### C BC, CMP, A1C WTH eA #### [facility] [address] [place] [address] [place] Lymphocytes/100 WBC (Bld) 27.5 % Normal . [facility] Comment on above: Performed By: #### C BC, CMP, A1C WTH eA #### [facility] [address] [place] [address] MCH (RBC) [Entitic mass] 35.1 pg High 24.7-34.3 [facility] Comment on above: Performed By: #### C BC, CMP, A1C WTH eA #### [address] MCV (RBC) [Entitic vol] 102.6 fL High 80-100 F [facility] Comment on above: Performed By: #### C BC, CMP, A1C WTH eA #### [address] Mean Corpuscular HGB Conc 34.2 g/dL Normal 32.0-35.0 [facility] Comment on above: Performed By: #### C BC, CMP, A1C WTH eA #### [address] Monocytes (Bld) [#/Vol] 0.3 10*3/uL Normal 0.0-0.8 [facility] Comment on above: Performed By: #### C BC, CMP, A1C WTH eA #### [address] Monocytes/100 WBC (Bld) 7.4 % Normal . [facility] Comment on above: Performed By: #### C BC, CMP, A1C WTH eA #### [place] [address] [place] Neutrophils (Bld) [#/Vol] 2.7 10*3/uL Normal 1.8-7.7 [facility] Comment on above: Performed By: #### C BC, CMP, A1C WTH eA #### [address] Neutrophils/100 WBC (Bld) 60.0 % Normal . [facility] Comment on above: Performed By: #### C BC, CMP, A1C WTH eA #### [address] [place] [address] [place] Nucleated RBC/100 WBC (Bld) [Ratio] 0.1 % Normal 0-0.5 [facility] Comment on above: Performed By: #### C BC, CMP, A1C WT eA #### [address] Platelet mean volume (Bld) [Entitic vol] 7.8 fL Normal 6.3-10.7 [facility] Comment on above: Performed By: #### C BC, CMP, A1C WT eA #### [address] Platelets (Bld) [#/Vol] 273 10*3/uL Normal 150-450 [facility] Comment on above: Performed By: #### C BC, CMP, A1C WT eA #### [address] RBC (Bld) [#/Vol] 3.93 10*6/uL Normal 3.60-5.00 [facility] Comment on above: Performed By: #### C BC, CMP, [address] eA #### [address] WBC (Bld) [#/Vol] 4.6 10*3/uL Normal 4.5-11.0 [facility] Comment on above: Performed By: #### C BC, CMP, A1C WT eA #### [address] Comprehensive Metabolic Pane brock 07-09-2021 Albumin [Mass/Vol] 3.7 g/dL Normal 3.2-5.5 [facility] Comment on above: Performed By: #### L IPID, TSH3 wRFLX, [id number] #### [address] Albumin/Globulin [Mass ratio] 1.3 {ratio} Normal [facility] Comment on above: Performed By: #### L IPID, TSH3 wRFLX, [id number] #### [address] [place] [address] [place] ALP [Catalytic activity/Vol] 52 U/L Normal 32-92 [facility] Comment on above: Performed By: #### L IPID, TSH3 wRFLX, [id number] #### [facility] [address] [place] [address] ALT [Catalytic activity/Vol] 20 U/L Normal 10-60 [facility] Comment on above: Performed By: #### L IPID, TSH3 wRFLX, [id number] #### [facility] [address] [place] [address] AST [Catalytic activity/Vol] 21 U/L Normal 10-42 [facility] Comment on above: Performed By: #### L IPID, TSH3 wRFLX, [id number] #### [facility] [address] [place] [address] Bilirubin [Mass/Vol] 0.6 mg/dL Normal 0.3-1.2 [facility] Comment on above: Performed By: #### L IPID, TSH3 wRFLX, [id number] #### [facility] [address] [place] [address] Calcium [Mass/Vol] 9.5 mg/dL Normal 8.2-10.2 [facility] Comment on above: Performed By: #### L IPID, TSH3 wRFLX, [id number] #### [facility] [address] [place] [address] [place] Chloride [Moles/Vol] 100 mmol/L Normal 95-114 [facility] Comment on above: Performed By: #### L IPID, TSH3 wRFLX, [id number] #### [facility] [address] [place] [address] [place] CO2 [Moles/Vol] 30.1 mmol/L High 22.0-30.0 [facility] Comment on above: Performed By: #### L IPID, TSH3 wRFLX, [id number] #### [facility] [address] [place] [address] [place] Creatinine [Mass/Vol] 0.57 mg/dL Normal 0.44-1.03 [facility] Comment on above: Performed By: #### L IPID, TSH3 wRFLX, [id number] #### [facility] [address] [place] [address] Creatinine Clr Calc Pharmacy 77.27 [facility] Comment on above: Result Comment: PERF ORMED BY: [place] [address] PATHOLOGIST MICA INSPECTOR JONAS BOYCE M.D. Performed By: #### L IPID, TSH3 wRFLX, [id number] #### [address] Estimated GFR ( Vani > 60 [facility] Comment on above: Result Comment: GFR estimated reference range: According to KDOQI guidelines, <60 ml/min/1.73m2 is sufficient to diagnose a patient with chronic kidney disease. Performed By: #### L IPID, TSH3 wRFLX, [id number] #### [address] Estimated GFR (Non- Am > 60 [facility] Comment on above: Performed By: #### L IPID, TSH3 wRFLX, [id number] #### [address] Globulin (S) [Mass/Vol] 2.8 g/dL Normal [facility] Comment on above: Performed By: #### L IPID, TSH3 wRFLX, [id number] #### [address] Glucose [Mass/Vol] 90 mg/dL Normal 70-100 [facility] Comment on above: Result Comment: [place] Glucose Reference Range is dependent on time and content of last meal. Glucose of more than 200 mg/dL in a nonstressed, ambulatory subject supports the diagnosis of Diabetes Mellitus. ADA recommended reference range Performed By: #### L IPID, TSH3 wRFLX, [id number] #### [place] [address] [place] Potassium [Moles/Vol] 3.6 mmol/L Normal 3.5-5.1 [facility] Comment on above: Performed By: #### L IPID, TSH3 wRFLX, [id number] #### [facility] [address] [place] [address] [place] Protein [Mass/Vol] 6.5 g/dL Normal 6.1-7.9 [facility] Comment on above: Performed By: #### L IPID, TSH3 wRFLX, [id number] #### [facility] [address] Sodium [Moles/Vol] 140 mmol/L Normal 136-146 [facility] Comment on above: Performed By: #### L IPID, TSH3 wRFLX, [id number] #### [facility] [address] [place] [address] [place] Urea nitrogen [Mass/Vol] 12 mg/dL Normal 9-23 [facility] Comment on above: Performed By: #### L IPID, TSH3 wRFLX, [id number] #### [facility] [address] [place] [address] [place] Creatinine and Glomerular fi ltration rate.predicted panel (S/P/Bld)Ordered By: Joni Branch on 07-09-2021 Creatinine [Mass/Vol] 0.57 mg/dL 0.44-1.03 [facility] Eosinophils Auto (Bld) [#/Vo l]Ordered By: Joni Branch on 07-09-2021 Eosinophils (Bld) [#/Vol] 0.2 10*3/uL 0.0-0.45 [facility] Eosinophils/100 WBC Auto (Bl d)Ordered By: Joni Branch on 07-09-2021 Eosinophils/100 WBC (Bld) 4.1 % [facility] Erythrocyte distribution wid th Auto (RBC) [Ratio]Ordered By: Joni Branch on 07-09-2021 Erythrocyte distribution width (RBC) [Ratio] 13.2 % 11.9-15.3 [facility] Estimated glomerular filtrat ion rate (GFR) non- AmericanOrdered By: Joni Branch on 07-09-2021 GFR/1.73 sq M.predicted among non-blacks MDRD (S/P/Bld) [Vol rate/Area] > 60 mL/Min [facility] Globulin Calc (S) [Mass/Vol] Ordered By: Joni Branch on 07-09-2021 Globulin (S) [Mass/Vol] 2.8 g/dL F [facility] Glucose mean value [Mass/vol ume] in Blood Estimated from glycated hemoglobinOrdered By: Joni Branch on 07-09-2021 Average glucose Estimated from glycated hemoglobin (Bld) [Mass/Vol] 111 mg/dL [facility] Hematocrit Auto (Bld) [Volum e fraction]Ordered By: Joni Branch on 07-09-2021 Hematocrit (Bld) [Volume fraction] 40.3 % 34.0-46.4 [facility] Hemoglobin A1c percentageOrd ered By: Joni Branch on 07-09-2021 HbA1c (Bld) [Mass fraction] 5.5 % 4.3-5.6 [facility] Comment on above: Increased risk for d iabetes: 5.7 - 6.4 diabetes: >6.4 glycemic control for adults with diabetes: <7.0 Ketones Auto test strip (U) [Mass/Vol]Ordered By: Joni Branch on 07-09-2021 Ketones (U) [Mass/Vol] Negative Negative [facility] - Hematology and Cell countsOrdered By: Joni Branch on 07-09-2021 Nucleated RBC/100 WBC (Bld) [Ratio] 0.1 % 0-0.5 [facility] Lymphocytes Auto (Bld) [#/Vo l]Ordered By: Joni Branch on 07-09-2021 Lymphocytes (Bld) [#/Vol] 1.3 10*3/uL 1.00-4.8 [facility] Lymphocytes/100 WBC Auto (Bl d)Ordered By: Joni Branch on 07-09-2021 Lymphocytes/100 WBC (Bld) 27.5 % [facility] MCH Auto (RBC) [Entitic mass ]Ordered By: Joni Branch on 07-09-2021 MCH (RBC) [Entitic mass] 35.1 pg 24.7-34.3 [facility] MCHC Auto (RBC) [Mass/Vol]Or dered By: Joni Branch on 07-09-2021 MCHC (RBC) [Mass/Vol] 34.2 g/dL 32.0-35.0 [facility] MCV Auto (RBC) [Entitic vol] Ordered By: Joni Bracnh on 07-09-2021 MCV (RBC) [Entitic vol] 102.6 fL 80-100 F [facility] Monocytes Auto (Bld) [#/Vol] Ordered By: Joni Branch on 07-09-2021 Monocytes (Bld) [#/Vol] 0.3 10*3/uL 0.0-0.8 [facility] Monocytes/100 WBC Auto (Bld) Ordered By: Joni Branch on 07-09-2021 Monocytes/100 WBC (Bld) 7.4 % F [facility] Neutrophils Auto (Bld) [#/Vo l]Ordered By: Joni Branch on 07-09-2021 Neutrophils (Bld) [#/Vol] 2.7 10*3/uL 1.8-7.7 [facility] Neutrophils/100 WBC Auto (Bl d)Ordered By: Joni Branch on 07-09-2021 Neutrophils/100 WBC (Bld) 60.0 % [facility] Nitrite Test strip Ql (U)Ord ered By: Joni Branch on 07-09-2021 Nitrite Ql (U) Negative Negative [facility] No Panel InformationOrdered By: Joni Branch on 07-09-2021 Estimated GFR () > 60 mL/Min [facility] Comment on above: GFR estimated refere nce range: According to KDOQI guidelines, <60 ml/min/1.73m2 is sufficient to diagnose a patient with chronic kidney disease. Pharmacy Creatinine Clearance (Chem 77.27 [facility] Platelet mean volume Auto (B ld) [Entitic vol]Ordered By: Joni Branch on 07-09-2021 Platelet mean volume (Bld) [Entitic vol] 7.8 fL 6.3-10.7 [facility] Platelets Auto (Bld) [#/Vol] Ordered By: Joni Branch on 07-09-2021 Platelets (Bld) [#/Vol] 273 10*3/uL 150-450 [facility] Protein Auto test strip (U) [Mass/Vol]Ordered By: Joni Branch on 07-09-2021 Protein (U) [Mass/Vol] Negative Negative Fi [facility] Protein [Mass/volume] in Ser um or PlasmaOrdered By: Joni Branch on 07-09-2021 Protein [Mass/Vol] 6.5 g/dL 6.1-7.9 [facility] RBC Auto (Bld) [#/Vol]Ordere d By: Joni Branch on 07-09-2021 RBC (Bld) [#/Vol] 3.93 10*6/uL 3.60-5.00 [facility] Serum or plasma alanine hernandez otransferase measurement without P-5'-P (enzymatic activiOrdered By: Joni Branch on 07-09-2021 ALT No additional P-5'-P [Catalytic activity/Vol] 20 U/L 10-60 [facility] Serum or plasma albumin/glob ulin mass ratioOrdered By: Joni Branch on 07-09-2021 Albumin/Globulin [Mass ratio] 1.3 {ratio} [facility] Serum or plasma alkaline triston sphatase measurement (enzymatic activity/volume)Ordered By: Joni Branch on 07-09-2021 ALP [Catalytic activity/Vol] 52 U/L 32-92 [facility] Serum or plasma aspartate am inotransferase measurement (enzymatic activity/volume)Ordered By: Joni Branch on 07-09-2021 AST [Catalytic activity/Vol] 21 U/L 10-42 [facility] Serum or plasma calcium wendi urement (mass/volume)Ordered By: Joni Branch on 07-09-2021 Calcium [Mass/Vol] 9.5 mg/dL 8.2-10.2 [facility] Serum or plasma chloride olivia surement (moles/volume)Ordered By: Joni Branch on 07-09-2021 Chloride [Moles/Vol] 100 mmol/L 95-114 [facility] Serum or plasma glucose wendi urement (mass/volume)Ordered By: Joni Branch on 07-09-2021 Glucose [Mass/Vol] 90 mg/dL 70-100 [facility] Comment on above: ADA recommended refe rence range Random Glucose Reference Range is dependent on time and content of last meal. Glucose of more than 200 mg/dL in a nonstressed, ambulatory subject supports the diagnosis of Diabetes Mellitus. Serum or plasma potassium me asurement (moles/volume)Ordered By: Joni Branch on 07-09-2021 Potassium [Moles/Vol] 3.6 mmol/L 3.5-5.1 [facility] Serum or plasma sodium measu rement (moles/volume)Ordered By: Joni Branch on 07-09-2021 Sodium [Moles/Vol] 140 mmol/L 136-146 [facility] Serum or plasma total biliru bin measurement (mass/volume)Ordered By: Joni Branch on 07-09-2021 Bilirubin [Mass/Vol] 0.6 mg/dL 0.3-1.2 [facility] Serum or plasma total carbon dioxide measurement (moles/volume)Ordered By: oJni Branch on 07-09-2021 CO2 [Moles/Vol] 30.1 mmol/L 22.0-30.0 [facility] Serum or plasma urea nitroge n measurement (mass/volume)Ordered By: Joni Branch on 07-09-2021 Urea nitrogen [Mass/Vol] 12 mg/dL 11-05 [facility] Specific gravity Auto test s trip (U) [Rel density]Ordered By: Joni Branch on 07-09-2021 Specific gravity (U) [Rel density] 1.005 1.001-1.030 [facility] Urinalysison 07-09-2021 Appearance (U) Clear Normal Clear [facility] Comment on above: Order Comment: Name Collection Type:: Clean-Voided Midstream Performed By: #### U A #### [facility] [address] [place] [address] [place] Bilirubin,Urine Negative Normal Negative [facility] Comment on above: Order Comment: Name Collection Type:: Clean-Voided Midstream Performed By: #### U A #### [facility] [address] [place] [address] [place] Color (U) Yellow Normal Yellow [facility] Comment on above: Order Comment: Name Collection Type:: Clean-Voided Midstream Performed By: #### U A #### [facility] [address] [place] [address] [place] Glucose Ql (U) Normal Normal Normal [facility] Comment on above: Order Comment: Name Collection Type:: Clean-Voided Midstream Performed By: #### U A #### [facility] [address] [place] [address] [place] Ketones Ql (U) Negative Normal Negative [facility] Comment on above: Order Comment: Name Collection Type:: Clean-Voided Midstream Performed By: #### U A #### [facility] [address] [place] [address] [place] Leukocyte esterase Test strip Ql (U) Negative Normal Negative [facility] Comment on above: Order Comment: Name Collection Type:: Clean-Voided Midstream Performed By: #### U A #### [facility] [address] [place] [address] [place] Nitrite,Urine Negative Normal Negative [facility] Comment on above: Order Comment: Name Collection Type:: Clean-Voided Midstream Performed By: #### U A #### [place] [address] [place] Occult Blood,Urine Negative Normal Negative [facility] Comment on above: Order Comment: Name Collection Type:: Clean-Voided Midstream Result Comment: PERF ORMED BY: [place] [address] PATHOLOGIST MICA INSPECTOR JONAS BOYCE M.D. Performed By: #### U A #### [address] pH (U) 7.0 [pH] Normal 5.0-9.0 [facility] Comment on above: Order Comment: Name Collection Type:: Clean-Voided Midstream Performed By: #### U A #### [address] Protein,Urine Negative Normal Negative [facility] Comment on above: Order Comment: Name Collection Type:: Clean-Voided Midstream Performed By: #### U A #### [address] Specificy [place],Urine 1.005 Normal 1.001-1.030 [facility] Comment on above: Order Comment: Name Collection Type:: Clean-Voided Midstream Performed By: #### U A #### [address] Urobilinogen,Urine Normal Normal Normal [facility] Comment on above: Order Comment: Name Collection Type:: Clean-Voided Midstream Performed By: #### U A #### [place] [address] [place] Urine clarity by refractomet ry automatedOrdered By: Joni Branch on 07-09-2021 Clarity Refractometry automated (U) Clear Clear [facility] Urine glucose measurement by automated test strip (mass/volume)Ordered By: Joni Branch on 07-09-2021 Glucose Auto test strip (U) [Mass/Vol] Normal mg/dL Normal [facility] Urine hemoglobin detection b y automated test stripOrdered By: Joni Branch on 07-09-2021 Hemoglobin Auto test strip Ql (U) Negative Negative [facility] Urine leukocyte esterase det ection by automated test stripOrdered By: Joni Branch on 07-09-2021 Leukocyte esterase Auto test strip Ql (U) Negative Negative [facility] Urobilinogen Auto test strip (U) [Mass/Vol]Ordered By: Joni Branch on 07-09-2021 Urobilinogen (U) [Mass/Vol] Normal mg/dL Normal [facility] pH Auto test strip (U)Ordere d By: Joni Branch on 07-09-2021 pH (U) 7.0 [pH] 5.0-9.[address] [facility] [address] head/brain wo conon 07-08 CT head/brain wo con [facility] [place] [address] CT Scan Report Signed Patient: Alie Lowe MR#: [id number] [birth year] : 1960 Acct:[id number] Age/Sex: 60 / F ADM Date: 07/06/21 Loc: Room: [address] [place] [address] Type: ADM IN Attending Dr: Sandra Branch [...] Robertson Jr., M.D.07/08/2021 8:17 PM Dictation Location: [place] [address] Transcribed By: [facility] 07/08/212016 Dictated By: Adan Robertson Jr, MD 07/08/212013 Signed By: 07/08/212016 Normal [facility] Cholesterol [Mass/volume] in Serum or PlasmaOrdered By: Joni Branch on 07-07-2021 Cholesterol [Mass/Vol] 233 mg/dL 140-200 [facility] Comment on above: Chol less than 200 m g/dl low risk Chol 201-239 mg/dl borderline risk Chol 240 mg/dl and greater high risk Cholesterol in LDL Calc [Mas s/Vol]Ordered By: Joni Branch on 07-07-2021 Cholesterol in LDL [Mass/Vol] 165 mg/dL 0-100 [facility] Comment on above: LDL ATP III CLASSIFI CATION LDL less than 100 mg/dL Optimal LDL 100-129 mg/dL Near or above optimal LDL 130-159 mg/dL Borderline high LDL 160-189 mg/dL High LDL greater than 189 mg/dL Very high Cholesterol in VLDL Calc [Ma ss/Vol]Ordered By: Joni Branch on 07-07-2021 Cholesterol in VLDL [Mass/Vol] 19 mg/dL [facility] Complete Blood Count Auto Di ffon 07-07-2021 Basophils (Bld) [#/Vol] 0.0 10*3/uL Normal 0.0-0.2 [facility] Comment on above: Result Comment: PERF ORMED BY: [place] [address] PATHOLOGIST MICA INSPECTOR JONAS BOYCE M.D. Performed By: #### C BC, CMP #### [facility] [address] Basophils/100 WBC (Bld) 0.9 % Normal . [facility] Comment on above: Performed By: #### C BC, CMP #### [facility] [address] [place] [address] [place] Eosinophils (Bld) [#/Vol] 0.2 10*3/uL Normal 0.0-0.45 [facility] Comment on above: Performed By: #### C BC, CMP #### [facility] [address] [place] [address] [place] Eosinophils/100 WBC (Bld) 5.5 % Normal . [facility] Comment on above: Performed By: #### C BC, CMP #### [facility] [address] Erythrocyte distribution width (RBC) [Ratio] 13.8 % Normal 11.9-15.3 [facility] Comment on above: Performed By: #### C BC, CMP #### [address] Hematocrit (Bld) [Volume fraction] 43.1 % Normal 34.0-46.4 [facility] Comment on above: Performed By: #### C BC, CMP #### [place] [address] [place] Hemoglobin (Bld) [Mass/Vol] 14.5 g/dL Normal 11.8-15.4 [facility] Comment on above: Performed By: #### C BC, CMP #### [place] [address] [place] Lymphocytes (Bld) [#/Vol] 1.3 10*3/uL Normal 1.00-4.8 [facility] Comment on above: Performed By: #### C BC, CMP #### [place] [address] [place] Lymphocytes/100 WBC (Bld) 28.9 % Normal . [facility] Comment on above: Performed By: #### C BC, CMP #### [place] [address] [place] MCH (RBC) [Entitic mass] 34.6 pg High 24.7-34.3 [facility] Comment on above: Performed By: #### C BC, CMP #### [facility] [address] MCV (RBC) [Entitic vol] 103.0 fL High 80-100 F [facility] Comment on above: Performed By: #### C BC, CMP #### [facility] [address] Mean Corpuscular HGB Conc 33.5 g/dL Normal 32.0-35.0 [facility] Comment on above: Performed By: #### C BC, CMP #### [facility] [address] Monocytes (Bld) [#/Vol] 0.3 10*3/uL Normal 0.0-0.8 [facility] Comment on above: Performed By: #### C BC, CMP #### [facility] [address] Monocytes/100 WBC (Bld) 7.3 % Normal . [facility] Comment on above: Performed By: #### C BC, CMP #### [facility] [address] [place] [address] [place] Neutrophils (Bld) [#/Vol] 2.6 10*3/uL Normal 1.8-7.7 [facility] Comment on above: Performed By: #### C BC, CMP #### [place] [address] [place] Neutrophils/100 WBC (Bld) 57.4 % Normal . [facility] Comment on above: Performed By: #### C BC, CMP #### [facility] [address] [place] [address] [place] Nucleated RBC/100 WBC (Bld) [Ratio] 0.2 % Normal 0-0.5 [facility] Comment on above: Performed By: #### C BC, CMP #### [facility] [address] Platelet mean volume (Bld) [Entitic vol] 8.5 fL Normal 6.3-10.7 [facility] Comment on above: Performed By: #### C BC, CMP #### [facility] [address] Platelets (Bld) [#/Vol] 281 10*3/uL Normal 150-450 [facility] Comment on above: Performed By: #### C BC, CMP #### [facility] [address] RBC (Bld) [#/Vol] 4.19 10*6/uL Normal 3.60-5.00 [facility] Comment on above: Performed By: #### C BC, CMP #### [facility] [address] WBC (Bld) [#/Vol] 4.5 10*3/uL Normal 4.5-11.0 [facility] Comment on above: Performed By: #### C BC, CMP #### [address] Comprehensive Metabolic Pane brock 07-07-2021 Albumin [Mass/Vol] 3.4 g/dL Normal 3.2-5.5 [facility] Comment on above: Performed By: #### C BC, CMP #### [facility] [address] [place] [address] Albumin/Globulin [Mass ratio] 1.3 {ratio} Normal [facility] Comment on above: Performed By: #### C BC, CMP #### [address] ALP [Catalytic activity/Vol] 55 U/L Normal 32-92 [facility] Comment on above: Performed By: #### C BC, CMP #### [facility] [address] [place], [place] [id number] [facility] ALT [Catalytic activity/Vol] 14 U/L Normal 10-60 [facility] Comment on above: Performed By: #### C BC, CMP #### [address] AST [Catalytic activity/Vol] 22 U/L Normal 10-42 [facility] Comment on above: Performed By: #### C BC, CMP #### [address] [place] [address] [place] Bilirubin [Mass/Vol] 0.5 mg/dL Normal 0.3-1.2 [facility] Comment on above: Performed By: #### C BC, CMP #### [facility] [address] Calcium [Mass/Vol] 8.8 mg/dL Normal 8.2-10.2 [facility] Comment on above: Performed By: #### C BC, CMP #### [facility] [address] Chloride [Moles/Vol] 102 mmol/L Normal 95-114 [facility] Comment on above: Performed By: #### C BC, CMP #### [facility] [address] CO2 [Moles/Vol] 24.2 mmol/L Normal 22.0-30.0 [facility] Comment on above: Performed By: #### C BC, CMP #### [address] Creatinine [Mass/Vol] 0.70 mg/dL Normal 0.44-1.03 [facility] Comment on above: Performed By: #### C BC, CMP #### [place] [address] [place] Creatinine Clr Calc Pharmacy 62.92 [facility] Comment on above: Result Comment: PERF ORMED BY: [place] [address] PATHOLOGIST MICA INSPECTOR JONAS BOYCE M.D. Performed By: #### C BC, CMP #### [address] Estimated GFR ( Vani > 60 Normal [facility] [facility] Comment on above: Result Comment: GFR estimated reference range: According to KDOQI guidelines, <60 ml/min/1.73m2 is sufficient to diagnose a patient with chronic kidney disease. Performed By: #### C BC, CMP #### [place] [address] [place] Estimated GFR (Non- Am > 60 Normal [facility] Comment on above: Performed By: #### C BC, CMP #### [facility] [address] [id number] [place] Globulin (S) [Mass/Vol] 2.7 g/dL Normal F [facility] Comment on above: Performed By: #### C BC, CMP #### [facility] [address] [id number] [facility] Glucose [Mass/Vol] 183 mg/dL High 70-100 [facility] Comment on above: Result Comment: [facility] Glucose Reference Range is dependent on time and content of last meal. Glucose of more than 200 mg/dL in a nonstressed, ambulatory subject supports the diagnosis of Diabetes Mellitus. ADA recommended reference range Performed By: #### C BC, CMP #### [facility] [address] Potassium [Moles/Vol] 3.9 mmol/L Normal 3.5-5.1 [facility] Comment on above: Performed By: #### C BC, CMP #### [facility] [address] Protein [Mass/Vol] 6.1 g/dL Normal 6.1-7.9 [facility] Comment on above: Performed By: #### C BC, CMP #### [facility] [address] [id number] [place] Sodium [Moles/Vol] 140 mmol/L Normal 136-146 [facility] Comment on above: Performed By: #### C BC, CMP #### [facility] [address] [id number] [place] Urea nitrogen [Mass/Vol] 15 mg/dL Normal 9-23 [facility] Comment on above: Performed By: #### C BC, CMP #### [facility] [address] [id number] [place] ECG 12 lead ECGon 07-07-2021 ECG 12 lead ECG [facility] Main [place] [address] [place] [address] Electrocardiograph Report Signed Patient: Alie Lowe MR#: [id number] [birth year] : 1960 Acct:[id number] Age/Sex: 60 / F ADM Date: 07/06/21 Loc: Room: [address] [place] [address] Type: DIS IN Attending Dr: Sandra Branch [...] By Bishop Hinojosa MD 0 07/08/21 0713 [facility] Laboratory - Chemistry and C hemistry - challengeOrdered By: Harriet Barber on 07-07-2021 Cobalamin (Vitamin B12) [Mass/Vol] 165 pg/mL 180-914 [facility] Lipid Panelon 07-07-2021 Cholesterol [Mass/Vol] 233 mg/dL High 140-200 [facility] Comment on above: Result Comment: Chol less than 200 mg/dl low risk Chol 201-239 mg/dl borderline risk Chol 240 mg/dl and greater high risk Performed By: #### L IPID, TSH3 wRFLX, [id number] #### [facility] [address] Cholesterol in HDL [Mass/Vol] 48 mg/dL Normal 35-85 [facility] Comment on above: Result Comment: HDL CHOL ATP-III CLASSIFICATION Cardiovascular Risk HDL > or equal to 60 mg/dL LOW HDL < 40 mg/dL HIGH Performed By: #### L IPID, TSH3 wRFLX, [id number] #### [facility] [address] Cholesterol.total/Nubia sterol in HDL [Mass ratio] 4.9 {ratio} Normal <5.0 [facility] Comment on above: Performed By: #### L IPID, TSH3 wRFLX, [id number] #### [facility] [address] LDL Cholesterol,Calculated 165 mg/dL High 0-100 [facility] Comment on above: Result Comment: LDL ATP III CLASSIFICATION LDL less than 100 mg/dL Optimal LDL 100-129 mg/dL Near or above optimal LDL 130-159 mg/dL Borderline high LDL 160-189 mg/dL High LDL greater than 189 mg/dL Very high Performed By: #### L IPID, TSH3 wRFLX, [id number] #### [facility] [address] Triglyceride w/Reflex 99 mg/dL Normal 35-149 [facility] Comment on above: Result Comment: TRIG ATP III CLASSIFICATION TRIG less than 150 mg/dL Normal TRIG 150-199 mg/dL Borderline high TRIG 200-500 mg/dL High TRIG greater than 500 mg/dL Very high Standard traceable to the Center for Disease Conrtrol and Prevention (CDC) test method. Performed By: #### L IPID, TSH3 wRFLX, [id number] #### [facility] [address] VLDL CHOLESTEROL 19 mg/dL Normal [facility] Comment on above: Performed By: #### L IPID, TSH3 wRFLX, [id number] #### [facility] [address] No Panel InformationOrdered By: Joni Branch on 07-07-2021 25-Hydroxy Vitamin D Total 17.9 ng/mL 30-100 [facility] Comment on above: VITAMIN D STATUS [...] Cholesterol in HDL [Mass/Vol] 48 mg/dL 35-85 [facility] Comment on above: HDL CHOL ATP-III CLA SSIFICATION Cardiovascular Risk HDL > or equal to 60 mg/dL LOW HDL < 40 mg/dL HIGH Serum or plasma total choles terol/high density lipoprotein (HDL) cholesterol mass ratOrdered By: Joni Barnch on 07-07-2021 Cholesterol.total/Nubia sterol in HDL [Mass ratio] 4.9 {ratio} [facility] TSH DL <= 0.005 mIU/L QnOrde red By: Joni Branch on 07-07-2021 TSH Qn 1.93 m[IU]/L 0.45-5.33 [facility] Thyroid Stim Hormone w/Rflxo n 07-07-2021 Thyroid Stim Hormone w/Rflx 1.93 u[iU]/mL Normal 0.45-5.33 [facility] Comment on above: Performed By: #### L IPID, TSH3 wRFLX, [id number] #### [address] Triglyceride [Mass/volume] i n Serum or PlasmaOrdered By: Joni Branch on 07-07-2021 Triglyceride [Mass/Vol] 99 mg/dL 35-149 [facility] Comment on above: TRIG ATP III CLASSIF ICATION TRIG less than 150 mg/dL Normal TRIG 150-199 mg/dL Borderline high TRIG 200-500 mg/dL High TRIG greater than 500 mg/dL Very high Standard traceable to the Center for Disease Conrtrol and Prevention (CDC) test method. Vitamin B12on 07-07-2021 Cobalamin (Vitamin B12) [Mass/Vol] 165 pg/mL Low 180-914 [facility] Comment on above: Order Comment: Comme nt add on to previously drawn labs Result Comment: PERF ORMED BY: [facility] [address] [place] [address] PATHOLOGIST MICA INSPECTOR JONAS BOYCE M.D. Performed By: #### L IPID, TSH3 wRFLX, [id number] #### [place] [id number] [facility] Vitamin D 25 Hydroxy Totalon 07-07-2021 Vitamin D 25 Hydroxy Total 17.9 ng/mL Low 30-100 [facility] Comment on above: Result Comment: MARYANN MIN D STATUS 25(OH)VITAMIN D RANGE (ng/mL) Deficient <20 Insufficient 20 to <30 Sufficient 30 to 100 Reference: Rambo MF,Josemanuel ROJAS, Nahomi TUCKER, et al. Evaluation,treatment, and prevention of vitamin D deficiency; an Endocrine Society clinical practice guideline. JCEM. 2010; 96(7):1911-30. PERFORMED BY: [place] [address] PATHOLOGIST MICA INSPECTOR JONAS BOYCE M.D. Performed By: #### L IPID, TSH3 wRFLX, [id number] #### [place] [id number] [facility] Vital Signs Date Time Vital Sign Value Performing Clinician Facility 10-07-2024 14:58-0400 Body height 154.9 cm Giovanni Hdez MD Work Phone: [facility] 10-07-2024 14:58-0400 Body mass index (BMI) [Ratio] 20.97 kg/m2 Giovanni Hdez MD Work Phone: [facility] 10-07-2024 14:58-0400 Body weight 50.35 kg Giovanni Hdez MD Work Phone: [facility] 10-07-2024 14:58-0400 Diastolic blood pressure 62 mm[Hg] Giovanni Hdez MD Work Phone: [facility] 10-07-2024 14:58-0400 Heart rate 76 /min Giovanni Hdez MD Work Phone: [facility] 10-07-2024 14:58-0400 Systolic blood pressure 110 mm[Hg] Giovanni Hdez MD Work Phone: [facility] 09-12-2024 22:39-0400 SaO2% (BldA) [Mass fraction] 100 % VIVIANA ROGERS [facility] Comment on above: Performed By: #### CBCA, PINR, [id number] # ### [facility] ([id number]) [address], [address] [place] [address] 09-12-2024 18:40-0400 SaO2% (BldA) [Mass fraction] 121 % MERE MONTEIRO [facility] Comment on above: Performed By: #### CBCA, HA1C, CMP, TSHR , 2132-9, 2276-4, FEPR, 2284-8, 90691-1 #### [facility] ([id number]) [address], [address] [place] [address] #### [id number] #### [facility] ([id number]) [address] [place] [address], [place] [address] 06-17-2024 14:00-0400 Body height 152.4 cm Teagan Mici PA-C Work Phone: [facility] 06-17-2024 14:00-0400 Body mass index (BMI) [Ratio] 20.12 kg/m2 Teagan Mici PA-C Work Phone: [facility] 06-17-2024 14:00-0400 Body weight 46.72 kg Teagan Mici PA-C Work Phone: [facility] 06-17-2024 14:00-0400 Diastolic blood pressure 50 mm[Hg] Teagan Mici PA-C Work Phone: [facility] 06-17-2024 14:00-0400 Heart rate 80 /min Teagan Mici PA-C Work Phone: [facility] 06-17-2024 14:00-0400 Systolic blood pressure 92 mm[Hg] Teagan Mici PA-C Work Phone: [facility] [employer] [facility] 05-18-2024 11:30-0400 Body temperature 98.01 [degF] Viviana Mccloud MD Work Phone: [facility] [employer] [facility] 05-18-2024 11:30-0400 Diastolic blood pressure 74 mm[Hg] Viviana Mccloud MD Work Phone: [facility] 05-18-2024 11:30-0400 Heart rate 96 /min Viviana Mccloud MD Work Phone: [facility] [employer] [facility] 05-18-2024 11:30-0400 Respiratory rate 16 /min Viviana Mccloud MD Work Phone: [facility] [employer] [facility] 05-18-2024 11:30-0400 SaO2% (BldA) [Mass fraction] 97 % Viviana Mccloud MD Work Phone: [facility] [employer] [facility] 05-18-2024 11:30-0400 Systolic blood pressure 113 mm[Hg] Viviana Mccloud MD Work Phone: [facility] [employer] [facility] 05-18-2024 03:20-0400 Body mass index (BMI) [Ratio] 17.65 kg/m2 Viviana Mccloud MD Work Phone: [facility] [employer] [facility] 05-18-2024 03:20-0400 Body weight 41 kg Viviana Mccloud MD Work Phone: [facility] 05-08-2024 09:00-0400 Body height 152.4 cm Viviana Mccloud MD Work Phone: [facility] [employer] [facility] 05-07-2024 16:45-0400 Body temperature 98.6 [degF] Viviana Mccloud MD Work Phone: [facility] [employer] [facility] 05-07-2024 16:45-0400 SaO2% (BldA) [Mass fraction] 96 % Viviana Mccloud MD Work Phone: [facility] 05-07-2024 16:45-0400 SaO2% (BldA) [Mass fraction] 97 % Viviana Mccloud MD Work Phone: [facility] 05-07-2024 16:41-0400 SaO2% (BldA) [Mass fraction] 97 % VIVIANA ROGERS [facility] Comment on above: Performed By: #### ICODE #### [facility] ([id number]) [address] [place] [address] 07-11-2021 07:30-0400 Body temperature 98 [degF] MD Sandra Branch Work Phone: [facility] 07-11-2021 07:30-0400 Diastolic blood pressure 82 mm[Hg] MD Sandra Branch Work Phone: [facility] 07-11-2021 07:30-0400 Heart rate 70 /min MD Sandra Branch Work Phone: [facility] 07-11-2021 07:30-0400 SaO2% (BldA) [Mass fraction] 99 % MD Sandra Branch Work Phone: [facility] 07-11-2021 07:30-0400 Systolic blood pressure 136 mm[Hg] MD Sandra Branch Work Phone: [facility] 07-10-2021 20:09-0400 Respiratory rate 16 /min MD Sandra Branch Work Phone: [facility] 07-07-2021 14:24-0400 Body height 152.4 cm MD Sandra Branch Work Phone: [facility] 07-06-2021 17:04-0400 Body mass index (BMI) [Ratio] 21.9 kg/m2 MD Sandra Branch Work Phone: [facility] 07-06-2021 [id number] Body weight 50.8 kg MD Sandra Branch Work Phone: [facility] Encounters Encounter Date Encounter Type Care Provider Facility Start: 11-16-2024 End: 11-16-2024 ambulatory ALRAFAELA BEAVER [facility] Start: 11-12-2024 End: 11-12-2024 ambulatory Igor Holliday MD Work Phone: [facility] Work Phone: Start: 11-12-2024 End: 11-12-2024 Patient encounter procedure Art Trotter PhD -[facility] Work Phone: Start: 10-11-2024 End: 10-25-2024 Evaluation and management of inpatient [facility] Start: 10-07-2024 End: 10-07-2024 Office outpatient visit 25 minutes Giovanni Hdez MD Work Phone: [facility] Comment on above: Chronic systolic hea rt failure (CMS-HCC) (Primary Dx); Ischemic cardiomyopathy; Mixed hyperlipidemia Start: 10-07-2024 End: 10-07-2024 ambulatory GIOVANNI HDEZ [facility] Start: 10-04-2024 End: 10-04-2024 Telephone encounter Arlin Rodriguez CMA [facility] Start: 09-30-2024 End: 10-03-2024 Telephone encounter Cher Maciel APRN-PREASSEMBLER AND INSPECTOR Work Phone: [facility] Start: 09-30-2024 End: 09-30-2024 ambulatory Alexander Mayers MD Facility:[facility] Start: 09-25-2024 End: 09-25-2024 ambulatory AIDEN LOPEZ [facility] Start: 09-13-2024 End: 09-13-2024 Telephone encounter Richi Smith RN [facility] Comment on above: orders Start: 09-12-2024 End: 09-18-2024 Evaluation and management of inpatient LI KALEN [facility] Start: 09-12-2024 End: 09-12-2024 Emergency department patient visit [facility] Start: 09-12-2024 End: 09-12-2024 ambulatory [facility] Start: 09-11-2024 End: 09-11-2024 Telephone encounter Angela Rendon RN [facility] Comment on above: Life Vest Start: 08-12-2024 End: 08-12-2024 ambulatory Alexander Mayers MD Facility:[facility] Start: 07-15-2024 End: 07-15-2024 ambulatory Alexander Mayers MD Facility:[facility] Start: 07-01-2024 End: 07-01-2024 ambulatory Alexander Mayers MD Facility:[facility] Start: 06-17-2024 [facility] Start: 06-17-2024 End: 06-17-2024 Office outpatient visit 25 minutes [facility] KAT Work Phone: [facility] Comment on above: 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); Hypertension, unspecified type; Mixed hyperlipidemia; Chronic systolic heart failure (CMS-HCC); Complete heart block (CMS-HCC); Continuous tobacco abuse Start: 06-17-2024 End: 06-18-2024 Telephone encounter Monica Sharif RN [facility] Comment on above: Life Vest issue Start: 06-17-2024 End: 06-17-2024 ambulatory [facility] Start: 06-14-2024 End: 06-14-2024 Telephone encounter Juana [...] dementia; Bereavement Start: 05-22-2024 End: 05-22-2024 ambulatory [facility] Start: 05-21-2024 End: 05-21-2024 Telephone encounter Kristen Lainez [facility], A Department of [facility] Comment on above: New Patient Start: 05-20-2024 End: 05-20-2024 Patient encounter procedure Art Blue PhD Work Phone: [facility] Comment on above: Memory loss (Primary Dx); Concentration deficit; Family history of dementia; History of alcohol abuse; Bereavement Start: 05-20-2024 End: 05-20-2024 ambulatory ART BULE Not Available Start: 05-20-2024 End: 05-20-2024 Bamboo flowsheet Art Blue PhD Work Phone: [facility] Start: 05-20-2024 End: 05-20-2024 Bamboo flowsheet Art Blue PhD Work Phone: [facility] Start: 05-10-2024 End: 05-10-2024 Evaluation and management of inpatient [facility] Start: 05-10-2024 End: 05-14-2024 Evaluation and management of inpatient [facility] Start: 05-09-2024 End: 05-18-2024 Evaluation and management of inpatient [facility] Start: 05-08-2024 End: 05-21-2024 Telephone encounter Gilberto Zepeda MD Work Phone: [facility] Comment on above: s/p CATH/PCI Start: 05-07-2024 End: 05-07-2024 ambulatory UNKNOWN PROVIDER Facility:[facility] Start: 05-07-2024 End: 05-18-2024 Evaluation and management of inpatient Maya Lucinao MD Work Phone: [facility] Start: 05-07-2024 End: 05-07-2024 Telephone encounter Shaniqua Montoya [facility] Comment on above: Order clarification Start: 05-07-2024 End: 05-07-2024 Emergency department patient visit [facility] Start: 04-10-2024 End: 04-10-2024 Telephone encounter Shonda Rose [facility] Comment on above: Neuro Referral/Ins I ssue Start: 04-06-2024 End: 04-06-2024 ambulatory MERE ORALIA [facility] Start: 07-06-2021 End: 07-11-2021 Evaluation and management of inpatient Igor Holliday Facility:[facility] Start: 07-06-2021 End: 07-11-2021 Evaluation and management of inpatient MD Sandra Branch Work Phone: [facility] Procedures Date Procedure Procedure Detail Performing Clinician Start: 10-21-2024 Antibody screen MERE ORALIA Comment on above: Performed By: #### C BCA, HA1C, CMP, TSHR, 2132-9, 2276-4, FEPR, 2284-8, 86455-4 #### [facility] ([id number]) [address], [address] [place] [address] #### [id number] #### [facility] ([id number]) [address] [place] [address], [place] [address] Start: 10-16-2024 Antibody screen MERE ORALIA Comment on above: Performed By: #### C BCA, HA1C, CMP, TSHR, 2132-9, 2276-4, FEPR, 2284-8, 52074-0 #### [facility] ([id number]) [address] [place] [address] #### [id number] #### [facility] ([id number]) [address] [place] [address], [place] [address] Start: 10-07-2024 Follow-up visit Follow-up GIOVANNI HDEZ Start: 05-18-2024 Basic metabolic pane l calcium total Alfa Gregory MD Work Phone: Start: 05-17-2024 Comprehensive metabo lic panel Leobardo P Jc PA-C Work Phone: Start: 05-16-2024 Comprehensive metabo lic panel Leobardo P Jc PA-C Work Phone: Start: 05-15-2024 Comprehensive metabo lic panel Leobardo P Jc PA-C Work Phone: Start: 05-14-2024 Gluc [...] White MD Work Phone: Start: 05-10-2024 EEG Isabel Harris MD Work Phone: Start: 05-10-2024 Electrolyte [...] Phone: Start: 05-07-2024 Comprehensive metabo lic panel Gurinder Espinal MD Work Phone: Start: 05-07-2024 Ecg [...] Spangler MD Work Phone: Start: 05-07-2024 REVASC INGOT BUGGY OPERATOR/GARETT STENT /ATH LAD Aiden Spangler MD Work Phone: Start: 05-07-2024 Echo transthorc r-t 2d w/wo m-mode rec f-up/lmtd Gurinder Espinal MD Work Phone: Start: 05-07-2024 Ecg routine ecg w/le ast 12 lds trcg only w/o i&r Gurinder Espinal MD Work Phone: Start: 05-07-2024 End: [...] Td Vaccines (2 - Td or Tdap) [facility] Start: 10-07-2025 Adult BMI Screening Adult BMI Screening [facility] Start: 10-07-2025 Tobacco Screening Tobacco Screening [facility] Start: 09-17-2025 Adult BMI Screening Adult BMI Screening [facility] Start: 09-13-2025 Adult BMI Screening Adult BMI Screening [facility] Start: 09-12-2025 Tobacco Screening Tobacco Screening [facility] Start: 06-17-2025 Adult BMI Screening Adult BMI Screening [facility] Start: 06-17-2025 Statin Use: Cardiovascular Statin Use: Cardiovascular [facility] Start: 05-18-2025 Adult BMI Screening Adult BMI Screening [facility] Start: 05-07-2025 Adult BMI Screening Adult BMI Screening [facility] Start: 05-07-2025 Tobacco Screening Tobacco Screening [facility] Start: 12-10-2024 End: 12-10-2024 Patient encounter procedure 12/10/2024 12:30 PM EDT Office Visit [facility] [address] [place] [address] Nishi Graham, SOCK MENDER-PREASSEMBLER AND INSPECTOR [address] [place] [phone] [facility] Start: 11-25-2024 End: 11-25-2024 Patient encounter procedure 11/25/2024 7:30 AM EDT Appointment [facility] [address] [place] [phone] Giovanni Hdez MD [address] [place], [place] [id number] [facility] Start: 10-14-2024 Influenza vaccination Influenza Vaccine [facility] Start: 10-07-2024 End: 10-07-2024 Patient encounter procedure 10/07/2024 3:15 PM EDT Office Visit [facility] [address] [place] [phone] Giovanni Hdez MD [address] [place] [address] [facility] Start: 10-07-2024 End: 10-07-2025 Echo limited W/O contrast Echo limited W/O contrast Echocardiography Routine Ischemic cardiomyopathy Expected: 10/07/2024, Expires: 10/07/2025 [facility] Work Phone: Comment on above: Expected: 10/07/2024, Expires: Start: 09-17-2024 End: 06-17-2025 Hepatic function 2000 panel - Serum or Plasma Hepatic function panel Lab Routine Mixed hyperlipidemia Expected: 09/17/2024 (Approximate), Expires: 06/17/2025 [facility] Comment on above: Expected: 09/17/2024 (Approximate), Expi res: 06/17/2025 Start: 09-17-2024 End: 06-17-2025 Lipid panel Lipid panel Lab Routine Mixed hyperlipidemia Expected: 09/17/2024 (Approximate), Expires: 06/17/2025 [facility] Work Phone: Comment on above: Expected: 09/17/2024 (Approximate), Expi res: 06/17/2025 Start: 09-12-2024 End: 09-12-2024 Patient encounter procedure 09/12/2024 1:30 PM EDT Appointment [facility] [address] [facility] [place] [phone] Teagan Carrillo PA-C [address] [place] [address] [facility] Start: 08-17-2024 End: 06-17-2025 Echo complete W/O contrast Echo complete W/O contrast Echocardiography Routine Chronic systolic heart failure ([facility]-HCC) Expected: 08/17/2024 (Approximate), Expires: 06/17/2025 [facility] Comment on above: Expected: 08/17/2024 (Approximate), Expi res: 06/17/2025 Start: 06-17-2024 End: 06-17-2024 Patient encounter procedure 06/17/2024 2:00 PM EDT Office Visit [facility] [address] [place] [phone] Teagan Carrillo PA-C [address] [place] [address] [facility] Start: 06-17-2024 End: 06-17-2025 Wireless Telemetry (In Office) [facility] Comment on above: Expected: 06/17/2024, Expires: Start: 05-30-2024 End: 05-30-2024 Patient encounter procedure 05/30/2024 9:00 AM EDT Office Visit [facility] [place] [phone] [facility] Start: 05-20-2024 End: 05-20-2024 Patient encounter procedure 05/20/2024 2:30 PM EDT Office Visit [facility] [place] [phone] Art Blue, PhD [address] [place] [address] Arrived [facility] Comment on above: Arrived Start: 05-18-2024 End: 05-18-2025 MR Cervical spine WO and W contrast IV [facility] Work Phone: Start: 05-18-2024 End: 05-18-2025 MR Lumbar spine WO and W [email or web address] Start: 05-15-2024 End: 05-08-2025 Wireless Telemetry (In Office) [facility] Work Phone: Start: 10-15-2023 Influenza vaccination Influenza Vaccine [facility] [employer] [facility] Start: 07-30-2023 Tobacco Screening Tobacco Screening [facility] [employer] Start: 07-01-2023 Adult BMI Screening [facility] Start: 11-11-2022 Depression Screening [facility] Start: 2012 Administration of varicella zoster vaccine Zoster (Shingles) Vaccine (1 of 2) [facility] [employer] Start: 2002 Screening for malignant neoplasm of breast [facility] Start: 09-24-1983 Screening for malignant neoplasm of cervix Pap [facility] Start: 1980 Adult BMI Follow Up Plan Adult BMI Follow Up Plan [facility] Start: 1960 Tobacco Counseling Tobacco Counseling [email or web address] End: 05-07-2024 aPTT in Blood by Coagulation assay [facility] Basic metabolic 2000 panel - Serum or Plasma [employer] Work Phone: End: 06-17-2025 Basic metabolic 2000 panel - Serum or Plasma Basic Metabolic Panel Lab Routine Chronic systolic heart failure ([facility]) 1 Occurrences starting 06/17/2024 until 06/17/2025 [facility] Comment on above: 1 Occurrences starting 06/17/2024 until 06/17/2025 End: 05-07-2024 Blood count hemoglobin [facility] Phone: End: 06-17-2025 CBC W Auto Differential panel - Blood CBC auto differential Lab Routine Chronic systolic heart failure ([facility]) 1 Occurrences starting 06/17/2024 until 06/17/2025 [facility] Comment on above: 1 Occurrences starting 06/17/2024 until 06/17/2025 EP INVASIVE EP INVASIVE Comp lete heart block [facility] Ionized calcium [facility] Magnesium [Mass/volu me] in Serum or Plasma [facility] End: 06-17-2025 Magnesium [Mass/volume] in Serum or Plasma Magnesium Lab Routine Chronic systolic heart failure ([facility]) 1 Occurrences starting 06/17/2024 until 06/17/2025 [facility] Comment on above: 1 Occurrences starting 06/17/2024 until 06/17/2025 Patient Education Ivermectin (Sy stemic) Acute Psychosis (DC) Scabies (DC) [facility] DC Instructions [facility] Work Phone: Patient referral [facility] Work Phone: Phosphate [Mass/volu me] in Serum or Plasma [facility] End: 05-07-2024 Platelets [#/volume] in Blood [facility] End: 12-18-2024 [facility] Work Phone: Comment on above: 1 Occurrences starting 06/17/2024 until 12/18/2024 End: 05-07-2024 Protime & INR [facility] End: 05-07-2024 Troponin I, High Sensitivity 1 Hour [facility] Work Phone: Immunizations Immunization Date Immunization Notes Care Provider [facility] 02-03-2020 tetanus toxoid, redu christina diphtheria toxoid, and acellular pertussis vaccine, adsorbed Ta-Reina [facility] Payers Date Payer Category Payer Private Health Insurance 2023 Medicare (Managed Care) [employer] M EDICARE ADVANTAGE [id number] 2022 Medicare HMO [id number] 2022 Medicare [id number] 2021 Medicaid [id number]. [id number] 2021 Medicaid [id number] 2021 Medicare [id number] 2021 Medicare [id number] 2021 Self-pay [id number] 1960 Unknown [id number] 2.16.840.1.467589.3.579.2. 732 1962 Unknown [id number] 2.16840.1.289959.3.579.2. 1259 1962 Unknown [id number] 2.16840.1.226284.3.579.2. 1259 1962 Unknown [id number] 2.16.840.1.533662.3.579.2. 1962 Unknown [id number] 2.16.840.1.749572.3.579.2. 1962 Unknown [id number] 2.16.840.1.341877.3.579.2. 1962 Unknown [id number] 2.16.840.1.154062.3.579.2. 1962 Unknown [id number] 2.16.840.1.631188.3.579.2. 1285 1962 Unknown [id number] 2.16.840.1.804693.3.579.2. 1285 1962 Unknown [id number] 2.16.840.1.443084.3.579.2. 1285 1962 Unknown [id number] 2.840.1.008901.3.579.2. 1285 1962 Unknown [id number] 2.16840.1.322570.3.579.2. 1285 1962 Unknown [id number] 2.16.840.1.549402.3.579.2. 1285 1962 Unknown [id number] 2.16.840.1.556230.3.579.2. 1285 1962 Unknown [id number] 2.840.1.659196.3.579.2. 1285 1962 Unknown [id number] 2.16.840.1.425925.3.579.2. 1285 1962 Unknown [id number] 2.16.840.1.315714.3.579.2. 1285 1962 Unknown [id number] 2.16.840.1.500746.3.579.2. 1285 1962 Unknown [id number] 2.16.840.1.944288.3.579.2. 1285 1962 Unknown [id number] 2.16.840.1.462166.3.579.2. 1286 1962 Unknown [id number] 2.16.840.1.070598.3.579.2. 1286 1962 Unknown [id number] 2.16.840.1.468730.3.579.2. 1286 1962 Unknown [id number] 2.16.840.1.860259.3.579.2. 1286 1962 Unknown [id number] 2.16.840.1.361922.3.579.2. 1286 Unknown [id number] 2.16.840.1.257586.3.579.2. 531 Social History Date Type Detail Facility Start: 07-07-2021 Tobacco smoking status NHIS Smoker (finding) [facility] Start: 1960 Sex Assigned At Female [facility] Start: 02-28-2022 End: 10-08-2024 Tobacco smoking status NJIS Smokes tobacco daily [facility] History of tobacco use Cigarette Smoker [facility] Start: 02-28-2022 End: 10-07-2024 Tobacco use and exposure Smokeless tobacco non-user [facility] Start: 07-29-2022 End: 10-07-2024 Alcoholic beverage intake Current drinker of alcohol (finding) [facility] Start: 11-21-2017 End: 03-03-2020 History of Social function [facility] Start: 11-21-2017 End: 03-03-2020 Alcohol Use Disorder Identification Test - Consumption [AUDIT-C] [facility] Frequency of Alcohol Consumption Never [facility] Start: 02-28-2022 Tobacco Comment Patient states she drinks a lot. [facility] Start: 1960 Sex assigned at Not on file [facility] Start: 09-16-2014 Sex Female (finding) [facility] Medical Equipment Procedure Code Equipment Code Equipment Origin al Text Equipment Identifier Dates [id number] , [id number] FDA Start: 05-07-2024 [id number], [id number][facility] FDA Start: 05-09-2024 Goals Date Patient Goal Desired Activity /State Personal health goal Comment on above: Formatting of this n ote might be different from the original. Evaluation of progress towards goal: Patient plans for a safe discharge. Functional Status Date Assessment Result Facility 07-11-2021 Functional status Patient at Baseline [facility] Work Phone: [facility] Mental Status Date Assessment Result Facility 07-11-2021 Cognitive function Cognitive Sta tus Patient at Baseline [facility] Work Phone: [facility] Clinical Notes 07-07-2021 to 10-07-2024 Giovanni Hdez MD - 10/07/2024 3:15 PM EDTPatient InstructionsTelephone Encounter - Arlin Rodriguez [facility] - 10/04/2024 11:12 AM EDTTelephone Encounter - Arlin Rodriguez [facility] - 10/04/2024 11:12 AM EDT Note Date & Type Note Facility 10-07-2024 History of Present illness Narrative Alie Adamsej Briones Date of visit: 10/07/2024 Date of : 1960 Age: 64 y.o. Patient Active Problem List Diagnosis Cervical spondylosis without myelopathy Osteoarthritis of cervical spine HTN (hypertension) CHB (complete heart block) ([facility]) ST elevation myocardial infarction (STEMI) ([facility]) Coronary artery disease involving [place] coronary artery of [place] heart Mixed hyperlipidemia Chronic systolic heart failure ([facility]) Sepsis ([facility]) Ischemic cardiomyopathy Allergies Allergen Reactions Sulfa (Sulfonamide Antibiotics) Itching and Rash Current Outpatient Medications Medication Sig Dispense Refill aspirin 81 mg chewable tablet Chew 1 tablet (81 mg total) and swallow in the morning for 360 days. 90 tablet 3 atorvastatin (LIPITOR) 80 mg tablet Take 1 tablet (80 mg total) by mouth nightly. 90 tablet 3 busPIRone (BUSPAR) 10 mg tablet Take 1 tablet (10 mg total) by mouth in the morning and 1 tablet (10 mg total) before bedtime. clopidogreL (PLAVIX) 75 mg tablet Take 1 tablet (75 mg total) by mouth in the morning. 30 tablet 1 cyclobenzaprine (FLEXERIL) 10 mg tablet Take 1 tablet (10 mg total) by mouth once daily at bedtime. dapagliflozin propanediol (FARXIGA) 10 mg tablet Take 1 tablet (10 mg total) by mouth in the morning for 360 days. 90 tablet 3 folic acid (FOLVITE) 1 mg tablet Take [...] the evening and 400 mg before bedtime.) metoprolol succinate XL (TOPROL XL) 25 mg 24 hr tablet Take 0.5 tablets (12.5 mg total) by mouth in the morning. 45 tablet 3 spironolactone (ALDACTONE) 25 mg tablet Take 1 tablet (25 mg total) by mouth in the morning. 90 tablet 3 valsartan (DIOVAN) 40 mg tablet Take 1 tablet (40 mg total) by mouth in the morning and 1 tablet (40 mg total) before bedtime. 90 tablet 3 No current facility-administered medications for this visit. Chief Complaint Patient presents with Follow-up OV F/U 3 MO LABS, EM DONE, CARDIAC REHAB DONE, L/S KM, SCHED W/PT History of Present Illness I had the opportunity to meet this 64-year-old today She was last seen by P LATOYA during hospitalization 09/17/2024. She was last in the office 06/17/2024 She reports that she has been doing well since hospitalization. 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 She is accompanied by her daughter CV TESTING HISTORY: ECHO: Echo limited W/O [...] regurgitation or stenosis. Mitral Valve: There is [id number] regurgitation. There is no evidence of mitral valve stenosis. Tricuspid Valve: There is trace regurgitation. There is no evidence of tricuspid valve stenosis. STRESS: No results found. HOLTER: No results found. CARDIAC CATH: Cardiac Invasive Result Date: 05/10/2024 Successful staged [...] aggressive medical management. Recommend follow-up with primary filling mixer outpatient. Cardiac Invasive Result Date: 05/08/2024 Successful placement [...] temporary pacemaker if rhythm stabilizes Electrophysiology consultation CAROTID: No results found. CXR: No results found. Lipid Profile: Lab Results Component Value Date Cholesterol 197 05/08/2024 Cholesterol:HDL Ratio 4.4 05/08/2024 HDL 55 09/12/2014 HDL Cholesterol 45 05/08/2024 HDL interpretation 09/12/2014 RISK FAVORABLE AVERAGE INCREASED MEN >55 MG/DL 35-55 MG/DL < 35 MG/DL FEMALE >65 MG/DL 45-65 MG/DL < 45 MG/DL Triglycerides 145 05/08/2024 Triglycerides 255 (H) 09/12/2014 LDL 192 09/12/2014 LDL (calc) 123 05/08/2024 LDL interp 09/12/2014 RECOMMENDED: <130 MG/DL MODERATE RISK: 130-159 MG/DL HIGH RISK: >160 MG/DL No data recorded No data recorded No data recorded Past Medical History: Diagnosis Date Asthma Asthma Back pain Cervical disc disorder CHB (complete heart block) ([facility]) 05/07/2024 HTN (hypertension) Hx of scabies Low back pain Lumbosacral disc disease Neck pain Osteoarthritis TMJ (temporomandibular joint syndrome) Past Surgical History: Procedure Laterality Date Cardiac Invasive N/A 05/09/2024 Performed by Gilbetro Zepeda MD at [facility] CARDIAC CATH LABS Cardiac Invasive-cors N/A 05/07/2024 Performed by Gilberto Zepeda MD at [facility] CARDI[facility]ATH [facility] SECTION SECTION 1980,,, INJECTION MEDIAL BRANCH NERVE BLOCK: left C34 45 56 Left 03/16/2018 Performed by Manav Rosario MD at [facility] INJECTION MEDIAL BRANCH NERVE BLOCK: left c34 45 56 Left 02/12/2018 Performed by Manav Rosario MD at [facility] INJECTION MEDIAL BRANCH NERVE BLOCK: right C34 45 56 Right 09/14/2018 Performed by Manav Rosario MD at [facility] INJECTION MEDIAL BRANCH NERVE BLOCK: right C34 45 56mbb Right 07/23/2018 Performed by Manav Rosario MD at [facility] Insert/replace temporary single lead pacemaker N/A 05/07/2024 Performed by Gilberto Zepeda MD at [facility] CARDI[facility]ATH [facility] Intravascular ultrasound initial vessel N/A 05/07/2024 Performed by Gilberto Zepeda MD at [facility]ARDI[facility]ATH [facility] ORTHOPEDIC SURGERY Percutaneous coronary intervention N/A 05/07/2024 Performed by Gilberto Zepeda MD at [facility]ATH [facility] Percutaneous coronary intervention of OM N/A 05/09/2024 Performed by Gilberto Zepeda MD at [facility]ATH [facility] RADIO FREQUENCY ABLATION Right C 3/4, 4/5, 5/6 Right 11/15/2019 Performed by Manav Rosario MD at [facility] RADIO FREQUENCY ABLATION: left C34 45 56rfa Left 04/30/2018 Performed by Manav Rosario MD at [facility] RADIOFREQUENCY ABLATION SPINAL: Right C 4/5 5/6 Left 07/08/2022 Performed by Manav Rosario MD at [facility] RADIOFREQUENCY ABLATION SPINAL: right C 4/5 5/6 Right 07/29/2022 Performed by Manav Rosario MD at [facility] Revascularization/drug eluting stent/ left anterior descending N/A 05/07/2024 Performed by Gilberto Zepeda MD at [facility] CARDIAC CATH [facility] ROTATOR CUFF REPAIR Left Stent drug-eluting/ left circumflex N/A 05/09/2024 Performed by Gilberto Zepeda MD at [facility] CARDIAC [facility]ATH [facility] TONSILLECTOMY 1970 Family History [...] No Sexual activity: Defer Other Topics Concern Caffeine Use Yes Social History Narrative Not on file Social Drivers of Health Financial Resource Strain: Not on file Food Insecurity: No Food Insecurity (10/07/2024) Hunger Screening Food Insecurity - Worry: Never True Food Insecurity - Inability: Never True Transportation Needs: Patient Unable To Answer (09/12/2024) [...] Systems Constitutional: Negative. HENT: Negative. Eyes: Negative. Cardiovascular: Negative. Vascular: Negative. Respiratory: Positive for cough. Endocrine: Negative. Hematologic/Lymphatic: Negative. Skin: Negative. Musculoskeletal: Positive for joint pain. Gastrointestinal: Negative. Genitourinary: Negative. Neurological: Negative. Psychiatric/Behavioral: Negative. Allergic/Immunologic: Negative. CARDIOVASCULAR: Please review HPI. Physical Examination General appearance: Alert, oriented and cooperative. In no acute distress. Skin: Warm and dry to touch. Respiratory: Clear to auscultation bilaterally, no use of accessory muscles. Cardiovascular: RRR with normal S1 and S2 with no murmurs. Musculoskeletal: No peripheral edema. VITAL SIGNS: BP 110/62 Pulse 76 Ht 154.9 cm (5' 1 ) Wt 50.3 kg (111 lb) BMI 20.97 kg/m Orders Placed or Reconciled This Encounter Medications cyclobenzaprine (FLEXERIL) 10 mg tablet Sig: Take 1 tablet (10 mg total) by mouth once daily at bedtime. Medications Discontinued During This Encounter Medication Reason DULoxetine (CYMBALTA) 60 mg capsule nicotine polacrilex (NICORETTE) 4 MG gum sennosides-docusate sodium (SENOKOT-S) 8.6-50 mg thiamine HCl (VITAMIN B-1) 100 mg tablet IMPRESSIONS/PLAN 1. Chronic systolic heart failure (CMS-HCC) 2. Ischemic cardiomyopathy - Echo limited W/O contrast; Future 3. Mixed hyperlipidemia 1. ASCVD without angina -STEMI 04/2024 --stent to proximal LAD/obtuse marginal --Plavix and aspirin 2. Complete heart block with acute event 04/2024 3. Ischemic cardiomyopathy --patient prescribed life vest on hospital discharge. She has at home but has not been wearing; will obtain echocardiogram to see if life vest remains indicated 4. Chronic heart failure with reduced ejection fraction, currently compensated --metoprolol succinate/Farxiga valsartan/Aldactone 5. Peripheral vascular disease CTA 09/2024 --abdominal aorta with run off showed atherosclerotic disease throughout, focal moderate stenosis of the R popliteal artery and focal severe stenosis of the mid L anterior tibial artery. 6. Primary hypertension, controlled 7. Hyperlipidemia --atorvastatin 8. Hypovolemic hyponatremia 04/2024 -nephrology 9. 04/2024 acute metabolic encephalopathy -thought to be multifactorial secondary to alcohol/substance use/self medication with herbal drugs --suspected [place] 10. Anemia of chronic disease 11. Alcohol and polysubstance use/abuse --tobacco use, cessation advised; patient endorses that she is uninterested in tobacco cessation at this time --patient states that she is not using alcohol or other substances 12. BMI 20 Limited echo to be obtained. If LV function remains reduced, patient should resume life vest and see EP to consider implantable defibrillator. Would also consider Heart failure Clinic for increased education, etcetera TODAYS ORDERS Orders Placed This Encounter Procedures Echo limited W/O contrast FOLLOW UP Return for 6-10 weeks LOBITO Ok. PCP: [facility] Referring Physician: Giovanni Hdez MD [address] [place] [address] documented in this encounter [facility] 10-07-2024 Instructions Arlin Rodriguez CMA - 10/07/2024 3:15 PM EDT Are You Ready To Kick The Habit? Free Tobacco Cessation Resources [facility] Services [facility] Treatment [facility] provide all employees with free tobacco cessation services that include: Counseling to understand nicotine addiction Education about medications that can help you successfully quit Assistance with developing a plan to quit Call to set up an individual appointment or find out when group classes will be held: [facility]: [phone] [facility]: [phone] [facility]: [phone] [facility]: [phone] Quit Smoking Action Plan and Resources [facility] offers an eight-week, online smoking cessation plan to all [facility] employees, regardless of whether [employer] is your medical insurance provider. Go to www.HotGrindsca.org/employeewelln ess and click the Health Risk Assessment and Resources link to get started. In the [employer] menu, click Action Plans instead of Health Risk Assessment to access the Quit Smoking Action Plan. Additional smoking cessation resources are also available to all [facility] employees on the [employer] web page at www.UsingMiles/quits mary ann. [employer] Tobacco Cessation Program If [employer] is your medical insurance provider, there are more free resources available to you, including: No copays or deductibles on local tobacco cessation counseling services to help you quit Prescription assistance for tobacco cessation medications to help you quit For details about the tobacco cessation program available to [employer] members, go to www.Zuffle.Privaris (Search: Tobacco Cessation Program). [place] Tobacco Quit Line 5-759-RKWG-NOW ( ) is a toll-free, telephonic service that helps [place] residents quit smoking and using tobacco. It is staffed by experts who tailor a quit plan for you and provide you with advice. [place] Tobacco Quit Line 6-711-USWL-NOW ( ) is a toll-free, telephonic service that helps [place] residents quit smoking and using tobacco. It is staffed by experts who tailor a quit plan for you and provide you with advice. Two weeks of nicotine replacement therapy may be provided at no charge, if needed. Additional Resources These national organizations also offer free information and resources to help you quit tobacco: [place] [employer]--www.cancer.org/healthy/s tayawayfromtobacco [place] [employer]--www.heart.org (Search: Quit Smoking) Centers for Disease Control and Prevention--www.cdc.gov/tobacco [place] [employer]--www.lungusa.org documented in this encounter [facility] 10-04-2024 Miscellaneous Notes Left message for patient to remind them to bring their most current medication list with them to their appointment. documented in this encounter [facility] 10-04-2024 Telephone encounter Note Left message for patient to remind them to bring their most current medication list with them to their appointment. [facility] 09-30-2024 Miscellaneous Notes Called Alie regarding the colonic diverticular abscess referral that our office received from Dr Monteiro, left a message on her voicemail to call the office back. Patient has [employer] Medicare and patient has NO OUT OF NETWORK BENEFITS and if Medicare doesn't allow anything Medicaid will not pay for anything. Alie will have to contact [employer] to see who is in network for her to see. Called Alie regarding the referral that our office received, left a message to call the office back. She doesn't have any out of network benefits, she will have to call [employer] to find someone in network to go to. Called Alie regarding the referral that our office received, left a message on her voicemail to call the office back. documented in this encounter [facility] 09-30-2024 Telephone encounter Note Called Alie regarding the colonic diverticular abscess referral that our office received from Dr Monteiro, left a message on her voicemail to call the office back. Patient has [employer] Medicare and patient has NO OUT OF NETWORK BENEFITS and if Medicare doesn't allow anything Medicaid will not pay for anything. Alie will have to contact [employer] to see who is in network for her to see. [facility] 09-30-2024 Telephone encounter Note Called Alie regarding the referral that our office received, left a message to call the office back. She doesn't have any out of network benefits, she will have to call [employer] to find someone in network to go to. [facility] 09-30-2024 Telephone encounter Note Called Alie regarding the referral that our office received, left a message on her voicemail to call the office back. [facility] 09-13-2024 Miscellaneous Notes OC 132 Jacqueline from [facility] to clarify anticoagulant order Call placed to Dr Brower and warm transfer to Jacqueline documented in this encounter [facility] 09-13-2024 Telephone encounter Note OC 132 Jacqueline from [facility] to clarify anticoagulant order Call placed to Dr Brower and warm transfer to Jacqueline [facility] 09-11-2024 Miscellaneous Notes LM on patients phone wanting to know what status of Life Vest is. Asked to return call with update documented in this encounter [facility] 09-11-2024 Telephone encounter Note LM on patients phone wanting to know what status of Life Vest is. Asked to return call with update [facility] 06-17-2024 Miscellaneous Notes Patient in office today with DONOVAN. She told him she took off her life vest because a light wasn't coming on and she didn't think it working. She had not called anyone. I called Ashely nelson Z[employer] rep and left a detailed message with patient's phone asking to reach out to her. I also sent her an email and asked her to call the office if questions. Ashely Ballard Coordinator Of Patient Administration [employer] Z[employer] #: [phone] Zoll [employer] called pt today.slm documented in this encounter [facility] 06-17-2024 Telephone encounter Note Patient in office today with DONOVAN. She told him she took off her life vest because a light wasn't coming on and she didn't think it working. She had not called anyone. I called Ashely nelson [employer] rep and left a detailed message with patient's phone asking to reach out to her. I also sent her an email and asked her to call the office if questions. Ashely Ballard Coordinator Of Patient Administration [employer] Z[employer] #: [phone] [employer] [facility] 06-17-2024 Telephone encounter Note [employer] called pt today.slm [facility] 06-17-2024 History of Present illness Narrative Alie Randa Lowe Date of visit: 06/17/2024 Date of : 1960 Age: 63 y.o. Patient Active Problem List Diagnosis Cervical spondylosis without myelopathy Osteoarthritis of cervical spine HTN (hypertension) CHB (complete heart block) ([facility]) ST elevation myocardial infarction (STEMI) [facility] [facility] Coronary artery disease involving keweenaw coronary artery of keweenaw heart Mixed hyperlipidemia Chronic systolic heart failure ([facility]) Allergies Allergen Reactions Sulfa (Sulfonamide Antibiotics) Itching [...] is a 63-year-old female, or presented to [place] ER after continued falls, patient was found [...] Cervical disc disorder CHB (complete heart block) ([facility]) 05/07/2024 HTN (hypertension) Hx of scabies Low back pain Lumbosacral disc disease Neck pain Osteoarthritis TMJ (temporomandibular joint syndrome) No data recorded No data recorded No data recorded Past Surgical History: Procedure Laterality Date Cardiac Invasive N/A 05/09/2024 Performed by Gilberto Zepeda MD at [facility] Cardiac Invasive-cors N/A 05/07/2024 Performed by Gilberto Zepeda MD at [facility] SECTION SECTION 1980,82,, INJECTION MEDIAL BRANCH NERVE BLOCK: left C34 45 56 Left 03/16/2018 Performed by Manav Rosario MD at [facility] INJECTION MEDIAL BRANCH NERVE BLOCK: left c34 45 56 Left 02/12/2018 Performed by Manav Rosario MD at [facility] INJECTION MEDIAL BRANCH NERVE BLOCK: right C34 45 56 Right 09/14/2018 Performed by Manav Rosario MD at [facility] INJECTION MEDIAL BRANCH NERVE BLOCK: right C34 45 56mbb Right 07/23/2018 Performed by Manav Rosario MD at [facility] Insert/replace temporary single lead pacemaker N/A 05/07/2024 Performed by Gilberto Zepeda MD at [facility] Intravascular ultrasound initial vessel N/A 05/07/2024 Performed by Gilberto Zepeda MD at [facility] ORTHOPEDIC SURGERY Percutaneous coronary intervention N/A 05/07/2024 Performed by Gilberto Zepeda MD at [facility] Percutaneous coronary intervention of OM N/A 05/09/2024 Performed by Gilberto Zepeda MD at [facility] RADIO FREQUENCY ABLATION Right C 3/4, 4/5, 5/6 Right 11/15/2019 Performed by Manav Rosario MD at [facility] RADIO FREQUENCY ABLATION: left C34 45 56rfa Left 04/30/2018 Performed by Manav Rosario MD at [facility] RADIOFREQUENCY ABLATION SPINAL: Right C 4/5 5/6 Left 07/08/2022 Performed by Manav Rosario MD at [facility] RADIOFREQUENCY ABLATION SPINAL: right C 4/5 5/6 Right 07/29/2022 Performed by Manav Rosario MD at [facility] Revascularization/drug eluting stent/ left anterior descending N/A 05/07/2024 Performed by Gilberto Zepeda MD at [facility] ROTATOR CUFF REPAIR Left Stent drug-eluting/ left circumflex N/A 05/09/2024 Performed by Gilberto Zepeda MD at [facility] TONSILLECTOMY 1970 Family History [...] Reorder IMPRESSIONS/PLAN 1. Coronary artery disease involving keweenaw coronary artery of keweenaw heart without angina pectoris -in the setting [...] in about 3 months (around 09/17/2024). PCP: ROSITA Lance Referring Physician: No referring provider defined for this encounter. Teagan Carrillo PA-C 06/17/24 1504 documented in this encounter [facility] 06-17-2024 Instructions Teagan Carrillo PA-C - 06/17/2024 2:00 PM EDT Are You Ready To Kick The Habit? Free Tobacco Cessation Resources [facility] Services [facility] provide all employees with free tobacco cessation services that include: Counseling to understand nicotine addiction Education about medications that can help you successfully quit Assistance with developing a plan to quit Call to set up an individual appointment or find out when group classes will be held: [facility]: [phone] [facility]: [phone] [facility]: [phone] [facility]: [phone] Quit Smoking Action Plan and Resources [facility] offers an eight-week, online smoking cessation plan to all [facility] employees, regardless of whether [employer] is your medical insurance provider. Go to www.mypromedica.org/employeewelln ess and click the Health Risk Assessment and Resources link to get started. In the Ffpxk6Ooehqw menu, click Action Plans instead of Health Risk Assessment to access the Quit Smoking Action Plan. Additional smoking cessation resources are also available to all [facility] employees on the Vuwuw6Wrpstq web page at www.Zuffle.Privaris/quits mary ann. [employer] Tobacco Cessation Program If [employer] is your medical insurance provider, there are more free resources available to you, including: No copays or deductibles on local tobacco cessation counseling services to help you quit Prescription assistance for tobacco cessation medications to help you quit For details about the tobacco cessation program available to [employer] members, go to www.Zuffle.Privaris (Search: Tobacco Cessation Program). [place] Tobacco Quit Line 3-902-PPPX-NOW ( ) is a toll-free, telephonic service that helps [place] residents quit smoking and using tobacco. It is staffed by experts who tailor a quit plan for you and provide you with advice. [place] Tobacco Quit Line 8-518-LHRK-NOW ( ) is a toll-free, telephonic service that helps [place] residents quit smoking and using tobacco. It is staffed by experts who tailor a quit plan for you and provide you with advice. Two weeks of nicotine replacement therapy may be provided at no charge, if needed. Additional Resources These national organizations also offer free information and resources to help you quit tobacco: [place] Cancer Society--www.cancer.org/healthy/s tayawayfromtobacco [place] Heart Association--www.heart.org (Search: Quit Smoking) Centers for Disease Control and Prevention--www.cdc.gov/tobacco [place] Lung Association--www.lungusa.org Metoprolol, valsartan, farxiga, spirolactone all [...] only as directed. documented in this encounter [facility] [employer] [facility] 06-14-2024 Miscellaneous Notes Left message for patient to remind them to bring their most current medication list with them to their appointment. documented in this encounter [facility] 06-14-2024 Telephone encounter Note Left message for patient to remind them to bring their most current medication list with them to their appointment. [facility] 05-30-2024 History of Present illness Narrative Images [...] Regarding physical activity, patient reported attending the [facility]. Family says that this is not the [...] past year. No other reported substance use. [place] [employer]. Completed 10 years of formal education and [...] and poor organization. Motor/Speed of Processing: Left-handed. 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 documented in this encounter [facility] 05-21-2024 [...] later date to schedule. Referred by: ANICETO GERMAN Dx:Altered mental status, unspecified altered mental status type Thank you! documented in this encounter [facility] 05-21-2024 Telephone encounter Note Received new patient [...] EVER BEEN SEEN BY A NEUROLOGIST BEFORE? [facility] 05-21-2024 Telephone encounter Note 1st attempt - Patient will call us at a later date to schedule. Referred by: ANICETO GERMAN Dx:Altered mental status, unspecified altered mental status type Thank you! [facility] 05-20-2024 History of Present illness Narrative Images [...] Regarding physical activity, patient reported attending the [facility]. Family says that this is not the [...] past year. No other reported substance use. [place] [employer]. Completed 10 years of formal education and [...] Please contact me with any questions at [phone]. documented in this encounter [facility] 05-18-2024 Hospital course Narrative Images from the original note were not included. [facility] 6W ACUTE [address] [facility] [id number] Hospital Medicine Discharge Summary Patient: Alie Briones Date of : 1960 Room: B664[facility] Encounter date: 05/18/24 Hospital Day: 12 DATE OF ADMISSION: 05/07/2024 DATE OF DISCHARGE:05/18/2024 DISCHARGE DIAGNOSES Principal Problem: CHB (complete heart block) ([facility]) Active Problems: HTN (hypertension) ST elevation myocardial infarction (STEMI) ([facility]) Coronary artery disease involving keweenaw coronary artery of keweenaw heart Mixed hyperlipidemia [facility] Neu[facility] Nephrology Cardiology PCP: [facility] PROCEDURES Cardiac cath, PCI GARETT X2 HOSPITAL COURSE SUMMARY Alie Briones is a 63 y.o. female with past medical history significant for hypertension and hyperlipidemia. Patient initially presented to [facility] on 05/07/2024 for evaluation after a fall with associated crushing chest pains. In the ER, EKG showed concerns for complete heart block for which Cardiology was consulted and patient was transferred to [facility] for further management under their service. On arrival to [facility] a repeat EKG revealed anterior lead ST segment elevations. Echocardiogram on 05/08 with moderate to severely decreased LV systolic function with EF 30-35% and anterior and anteroseptal akinesis for which the patient was urgently taken to electronic lab technician for anterior STEMI. Patient s/p GARETT [...] PCI/GARETT to pLAD on 05/07/24 and staged PCI/GARTET OM2 on 05/09/2024. Her ejection fraction was [...] stable for discharge at this time to nursing home facility. Discharge Day Progress Note 05/18/24 Hemodynamically [...] from the original result were not included. [facility] EEG REPORT EEG Service Date: 05/10/24 Date of Report: 05/10/24 History: Alie Briones is a 63 y.o. female with hallucinations and memory loss who is undergoing EEG to evaluate for seizures. Centrally active medications: Buspar, diphenydramine, lorazepam, morphine. Procedure: This EEG was acquired with electrodes placed according to the [id number] electrode placement system. The EEG was acquired [...] of intermittent seizures. Kat Marquez M.D., Ph.D. Unit Trust Manager [facility] Cardiac Invasive Result Date: 05/10/2024 Narrative: [...] aggressive medical management. Recommend follow-up with primary filling mixer outpatient. Echo limited W/O contrast Result Date: 05/08/2024 Narrative: Left Ventricle: Left ventricle appears normal in size. Systolic function is moderately to severely decreased with an ejection fraction of 30-35%. Aortic Valve: There is no regurgitation or stenosis. Mitral Valve: There is plfcm-cy-ckqd regurgitation. There is no evidence of mitral [...] on 05/07/2024 2:42 PM DISCHARGE INSTRUCTION Disposition: [facility] facility Condition: Stable Activity: activity as tolerated Diet: Adult diet Regular Texture; No Added Salt (3-4 gm Sodium); Low Fat/Low Cholesterol; Fluid Restriction 1500 mL Adult diet Follow up: [facility] within 7-14 days. Cardiology Neurology EP [...] this patient. MARCIAL PALACIOS 05/18/2024 12:55 PM [facility] Internal Medicine 7AM-7PM & 7PM-7AM: EpicChat or page through On-Call Finder. MARCIAL Palacios 05/18/24 1302 Patient seen and examined Interviewed and any questions answered All labs , xrays reviewed Clinical assessment and decisions made by myself in entirety Discussed case with team Agree with above assessment and plan Electronically signed by: VIVIANA MCCLOUD MD, 05/18/2024 3:48 PM [facility] [address] [place] [address], [address] [place] [address] (P): [phone] (F): [phone] documented in this encounter [facility] 05-18-2024 Miscellaneous Notes DISCHARGE PLANNING NOTE Authorization for SNF approved per [facility]. [facility] able to accept today. Tasked transport for 3pm, await confirmation. CN updated patient and 2nd IMM given. CN also contacted patient's daughter, Tonny, and updated her on discharge today. Patient and daughter agreeable to plan. Discharge packet complete. - Romi Jacobs RN 05/18/24 11:35 AM DISCHARGE PLANNING NOTE BLS transport to [facility] on 05/18/24 at 1500 hours via PTN. Confirmed in [facility]. DISCHARGE PLANNING NOTE Prior Auth approved for admission to : [facility] (P#: ; F#: ) Approval # [id number] Valid for Dates: 05/17/2024-05/22/2024 Problem: Pain Goal: Patient goal is pain score less than 4, able to rest, and participant in treatment plan as appropriate Description: INTERVENTIONS: 1. Encourage patient or legal residential sales representative to report early pain and [...] per policy 9. Teach patient or legal residential sales representative interventions for comforting Outcome: Progressing [...] at the bedside 7. Instruct patient/ patient residential sales representative about use of safety devices 8. Include patient/ patient residential sales representative in decisions related to safety Outcome: Progressing Note: Evaluation of progress towards goal: Pt remains free from falls and injuries since beginning of shift. Call light within reach. Bed rails up x3. Orientation reviewed. Hourly rounded maintained. Will continue to maintain safety until end of hospital stay. Problem: Knowledge Deficit Goal: Patient/patient residential sales representative demonstrates understanding of disease process, [...] time. DISCHARGE PLANNING NOTE Referral updates to [facility] (P#: ; F#: ) DISCHARGE PLANNING NOTE Prior auth submitted to: [employer] Via: availity [facility] : [facility] (P#: ; F#: ) Ref # [id number] DISCHARGE PLANNING NOTE [facility] is able to accept. Task to [facility] to send clinical updates and to submit for auth. Sw left a message for pt's dtr to update her on plan. - TURNER Benz 05/17/24 3:25 PM Problem: Pain Goal: Patient goal is pain score less than 4, able to rest, and participant in treatment plan as appropriate Description: INTERVENTIONS: 1. Encourage patient or legal residential sales representative to report early pain and [...] per policy 9. Teach patient or legal residential sales representative interventions for comforting Outcome: Progressing [...] at the bedside 7. Instruct patient/ patient residential sales representative about use of safety devices 8. Include patient/ patient residential sales representative in decisions related to safety [...] hygiene technique. 7. Identify and instruct patient/patient residential sales representative in use of appropriate isolation precautions for identified infection/symptoms. 8. Provide and discuss with patient/patient residential sales representative on educational MDRO sheet. 9. Encourage and monitor nutritional status daily and consult counselor manager if indicated. 10. Implement neutropenic guidelines as [...] PLANNING NOTE [facility] is unable to accept. Nishant called pt's dtr and she would prefer [facility], await response from them[facility], she reports the distance from family is far. Await response from [facility], they are just waiting on lifevest cost. Nishant to follow. - TURNER Benz 05/17/24 3:24 PM Speech Therapy Speech & Language Cognitive Evaluation and Treatment Note Impressions Receptive Language: Within Functional Limits Expressive Language: Within Functional Limits Cognitive Linguistic: Moderate Recommendations Discharge Recommendations: [facility] facility Rehab Therapy Type: Individual treatment Plan [...] continue to follow along. Prognosis Services: Skilled FOOD COUNTER ATTENDANT services to address the above deficits Prognosis/Potential: [...] to Within Functional Limits Attention: Exceptions to WF Alternating Attention: Moderate Divided Attention: Moderate Selective Attention: Moderate Sustained Attention: Moderate Memory: Exceptions to WF Daily Routines: Mild Long-term Memory: Mild People Encountered: Moderate Immediate Memory: Moderate Short-term Memory: Moderate Working Memory: Moderate Problem Solving: Exceptions to WF Complex Functional Tasks: Moderate Managing Finances: Mild Verbal Reasoning Skills: Moderate Abstract Reasoning: Mild Inductive Reasoning: Mild Deductive Reasoning: Mild Safety/Judgement: Exceptions to WF Complex Functional Tasks: Moderate Novel Situations: Mild [...] Problem: Cognitive Linguistic Dates: Start: 05/17/24 Disciplines: FOOD COUNTER ATTENDANT Goal: LTG: Patient will display functional cognitive-linguistic skills to demonstrate appropriate communication and safety within daily activities in a functional living environment Dates: Start: 05/17/24 Expected End: 06/16/24 Disciplines: FOOD COUNTER ATTENDANT Goal: STG: Patient will demonstrate sustained attention by maintaining focus during a task for 10 minutes with minimal assistance Dates: Start: 05/17/24 Expected End: 06/16/24 Disciplines: FOOD COUNTER ATTENDANT Goal: STG: Patient will demonstrate alternating attention by shifting the focus of attention between tasks/activities/ideas with minimal assistance 90% of the time Dates: Start: 05/17/24 Expected End: 06/16/24 Disciplines: FOOD COUNTER ATTENDANT Goal: STG: Patient will describe/demonstrate/initiate use of 3 memory strategies with minimal cueing Dates: Start: 05/17/24 Expected End: 06/16/24 Disciplines: FOOD COUNTER ATTENDANT Problem: High Level Language Dates: Start: 05/17/24 Disciplines: FOOD COUNTER ATTENDANT Goal: LTG: Patient will demonstrate use of self-awareness, goal setting, planning, initiation, self-monitoring and problem solving during daily activities to improve safety and awareness in a functional living environment Dates: Start: 05/17/24 Expected End: 06/16/24 Disciplines: FOOD COUNTER ATTENDANT Goal: STG: Patient will provide 3 appropriate solutions to problems of daily living with 90% accuracy with minimal cueing Dates: Start: 05/17/24 Expected End: 06/16/24 Disciplines: FOOD COUNTER ATTENDANT Goal: STG: Patient will demonstrate functional problem solving and safety awareness with 90% accuracy in daily living tasks in order to increase safe interactions with environment and decrease assistance from caregivers Dates: Start: 05/17/24 Expected End: 06/16/24 Disciplines: FOOD COUNTER ATTENDANT Goal: STG: Patient will complete simple to complex organization, scheduling, planning and reasoning tasks to improve problem solving and safety awareness with 90% accuracy with minimal cueing Dates: Start: 05/17/24 Expected End: 06/16/24 Disciplines: FOOD COUNTER ATTENDANT Problem: Pragmatics Dates: Start: 05/17/24 Disciplines: FOOD COUNTER ATTENDANT Goal: LTG: Patient will demonstrate appropriate social interaction skills in routine daily living activities to communicate basic social and medical needs in a functional living environment Dates: Start: 05/17/24 Expected End: 06/16/24 Disciplines: FOOD COUNTER ATTENDANT Goal: STG: Patient will maintain/extend topic for turns in unstructured/structured topic in 1:1/small group conversation via statements and questions with minimal cueing per session Dates: Start: 05/17/24 Expected End: 06/16/24 Disciplines: FOOD COUNTER ATTENDANT Speech Therapy Care Plan (Resolved) There are no resolved problems. Principal Problem: CHB (complete heart block) ([facility]) Active Problems: HTN (hypertension) ST elevation myocardial infarction (STEMI) ([facility]) Coronary artery disease involving ke[place] coronary artery of keweenaw heart Mixed hyperlipidemia Occupational Therapy Treatment Discharge Recommendations OT Recommendations : Jail Facility SNF/ECF Comments: SNF is recommended due [...] None Scoring Daily Activity Raw Score: 18 [facility] G Code Modifier: CK OT Treatment/Interventions: ADL [...] Early mobility, pass Equipment: Gait belt, RW Telemetry/Embossing Tool Setter: Yes Other Cardiac Monitoring Devices: Cardiac Life [...] Campbell/Ruby Evaluation of progress towards goal: Problem: Bed Mobility Dates: Start: 05/11/24 Disciplines: OT Goal: Patient will perform bed mobility with Modified Lyman Dates: Start: 05/11/24 Expected End: 06/01/24 Description: Goal Description: Disciplines: OT Outcomes Date/Time User Outcome 05/17/24 0957 Brandt Tucker, Student OT Progressing Problem: Functional Mobility Dates: Start: 05/11/24 Disciplines: OT Goal: Patient will perform functional mobility with Modified Lyman Dates: Start: 05/11/24 Expected End: 06/01/24 Description: Goal Description: Disciplines: OT Outcomes Date/Time User Outcome 05/17/24 09Danica Tucker, Student OT Progressing 05/15/24 1153 SHEYLA AgostoA/Ruby Progressing 05/13/24 1453 LOUISA Campbell/Ruby Progressing Goal [...] Brandt Tucker, Student OT Progressing 05/15/24 1153 Nicole Camarillo, JASSO/L Progressing 05/13/24 1453 SHEYLA CampbellA/Ruby Progressing Goal Note filed on 05/13/24 1453 by LOUISA Campbell/Ruby Evaluation of progress towards goal: Problem: Sitting Balance Dates: Start: 05/11/24 Disciplines: OT Goal: Improve balance to good Dates: Start: 05/11/24 Expected End: 06/01/24 Description: Static Dynamic Disciplines: OT Outcomes Date/Time User Outcome 05/17/24 0957 Brandt Tucker, Student OT Progressing 05/15/24 1153 Nicole Camarillo JASSO/L Progressing 05/13/24 1453 SHEYLA CampbellA/Ruby Progressing Goal Note filed on 05/13/24 1453 by LOUISA Campbell/Ruby Evaluation of progress towards goal: Problem: Standing Balance Dates: Start: 05/11/24 Disciplines: OT Goal: Improve balance to good Dates: Start: 05/11/24 Expected End: 06/01/24 Description: Static Dynamic Disciplines: OT Outcomes Date/Time User Outcome 05/17/24 0957 Brandt Tucker, Student OT Progressing 05/15/24 1153 Nicole Camarillo JASSO/L Progressing 05/13/24 1453 LOUISA Campbell/Ruby Progressing Goal [...] Tucker, Student OT Progressing 05/15/24 1153 SHEYLA AgostoA/L Progressing 05/13/24 1453 LOUISA Campbell/L Progressing Goal Note filed on 05/13/24 1453 by LOUISA Campbell/Ruby Evaluation of progress towards goal: Problem: Toilet Transfers Dates: Start: 05/11/24 Disciplines: OT Goal: Patient will perform toilet transfers with Modified Lyman Dates: Start: 05/11/24 Expected End: 06/01/24 Description: Goal Description: Disciplines: OT Outcomes Date/Time User Outcome 05/17/24 0957 Brandt Tucker, Student OT Progressing 05/13/24 1453 LOUISA Campbell/Ruby Progressing Goal Note filed on 05/13/24 1453 by LOUISA Campbell/Ruby Evaluation of progress towards goal: Problem: Transfers Dates: Start: 05/11/24 Disciplines: OT Goal: Patient will perform transfers with Modified Lyman Dates: Start: 05/11/24 Expected End: 06/01/24 Description: Goal Description: Disciplines: OT Outcomes Date/Time User Outcome 05/17/24 0957 Brandt Tucker, Student OT Progressing 05/15/24 1153 LOUISA Agosto/Ruby Progressing 05/13/24 1453 LOUISA Campbell/Ruby Progressing Goal Note filed on 05/13/24 1453 by LOUISA Campbell/Ruby Evaluation of progress towards goal: Occupational Therapy Care Plan (Resolved) There are no resolved problems. Principal Problem: CHB (complete heart block) ([facility]) Active Problems: HTN (hypertension) ST elevation myocardial infarction (STEMI) ([facility]) Coronary artery disease involving ke[place] coronary artery of keweenaw heart Mixed hyperlipidemia Cosigned by PRIYA Burdick/Ruby at 05/17/2024 2:22 PM EDT Associated attestation - Rakan Gill OTR/Ruby - 05/17/2024 2:22 PM EDT I have reviewed and agree with this note and education documentation for this visit. DISCHARGE PLANNING NOTE Sw rec'd a phone call from [facility], they will be up to do an onsite and will update if they are able to accept. Admiralcurry lee is waiting to hear back from [facility] regarding billing before they can say if they are able to accept. - TURNER Benz 05/17/24 10:07 AM Problem: Pain Goal: Patient goal is pain score less than 4, able to rest, and participant in treatment plan as appropriate Description: INTERVENTIONS: 1. Encourage patient or legal residential sales representative to report early pain and [...] per policy 9. Teach patient or legal residential sales representative interventions for comforting Outcome: Progressing [...] at the bedside 7. Instruct patient/ patient residential sales representative about use of safety devices 8. Include patient/ patient residential sales representative in decisions related to safety [...] hygiene technique. 7. Identify and instruct patient/patient residential sales representative in use of appropriate isolation precautions for identified infection/symptoms. 8. Provide and discuss with patient/patient residential sales representative on educational MDRO sheet. 9. Encourage and monitor nutritional status daily and consult counselor manager if indicated. 10. Implement neutropenic guidelines as needed. Outcome: Progressing Note: Evaluation of progress towards goal: Patient afebrile at this time. Will continue to monitor temp, CBC and other s/s of infection. Problem: Knowledge Deficit Goal: Patient/patient residential sales representative demonstrates understanding of disease process, [...] from pt's dtr, she requested referrals to [facility] in [place], [facility] [place], [facility], [facility] and [facility]. Nishant informed her that [facility] is no longer accepting skilled pt's. Will [...] be free from fall Description: Interventions: 1. [place] to environment 2. Hourly rounds addressing the [...] non-skid footwear 11. Teach patient and patient residential sales representative to maintain environment for safety [...] (cane, walker) within reach 19. Request patient residential sales representative bring adaptive equipment/mobility aids from home or obtain and provide as needed 20. Consult pharmacy regarding effects of med's affecting mobility, cognition, and alternatives 21. Obtain physician order for PT if risk factors associated with mobility are present 22. Obtain physician order for OT as appropriate 23. Utilize diversional activities 24. Educate patient and patient residential sales representative how to maintain a safe environment during visitation times (notify nurse prior to leaving bedside) 25. Consider appropriateness of medical or non-medical auditor 26. Set up voiding schedule as appropriate [...] Description: INTERVENTIONS: 1. Encourage patient or legal residential sales representative to report early pain and [...] per policy 9. Teach patient or legal residential sales representative interventions for comforting Outcome: Progressing [...] Description: INTERVENTIONS: 1. Encourage patient or legal residential sales representative to report early pain and [...] per policy 9. Teach patient or legal residential sales representative interventions for comforting Outcome: Progressing [...] at the bedside 7. Instruct patient/ patient residential sales representative about use of safety devices 8. Include patient/ patient residential sales representative in decisions related to safety [...] hygiene technique. 7. Identify and instruct patient/patient residential sales representative in use of appropriate isolation precautions for identified infection/symptoms. 8. Provide and discuss with patient/patient residential sales representative on educational MDRO sheet. 9. Encourage and monitor nutritional status daily and consult counselor manager if indicated. 10. Implement neutropenic guidelines as needed. Outcome: Progressing Note: Evaluation of progress towards goal: Maintained Problem: Knowledge Deficit Goal: Patient/patient residential sales representative demonstrates understanding of disease process, [...] Score of =/> 25 or indicated by [facility] Assessment Goal: Patient should be free from fall Description: Interventions: 1. [place] to environment 2. Hourly rounds addressing the [...] non-skid footwear 11. Teach patient and patient residential sales representative to maintain environment for safety [...] (cane, walker) within reach 19. Request patient residential sales representative bring adaptive equipment/mobility aids from home or obtain and provide as needed 20. Consult pharmacy regarding effects of med's affecting mobility, cognition, and alternatives 21. Obtain physician order for PT if risk factors associated with mobility are present 22. Obtain physician order for OT as appropriate 23. Utilize diversional activities 24. Educate patient and patient residential sales representative how to maintain a safe environment during visitation times (notify nurse prior to leaving bedside) 25. Consider appropriateness of medical or non-medical auditor 26. Set up voiding schedule as appropriate [...] care 6. Collaborate with pastoral/spiritual care, social media strategist, mental health counselor as needed. 7. Instruct patient on diversional activities such as physical activity, distraction, and deep breathing exercises to assist with coping 8. Involve patient's residential sales representative in care Outcome: Progressing Note: [...] Description: INTERVENTIONS: 1. Encourage patient or legal residential sales representative to report early pain and [...] per policy 9. Teach patient or legal residential sales representative interventions for comforting Outcome: Progressing [...] at the bedside 7. Instruct patient/ patient residential sales representative about use of safety devices 8. Include patient/ patient residential sales representative in decisions related to safety Outcome: Progressing Note: Evaluation of progress towards goal: Pt remains free from falls and injuries since beginning of shift. Call light within reach. Bed rails up x3. Orientation reviewed. Hourly rounded maintained. Will continue to maintain safety until end of hospital stay. Problem: Knowledge Deficit Goal: Patient/patient residential sales representative demonstrates understanding of disease process, [...] NOTE Sw rec'd a phone call from [facility], they are unable to accept a [facility]. - TURNER Benz 05/15/24 3:52 PM DISCHARGE PLANNING NOTE Nishant called pt's dtr and informed her that none of the snf's she chose are able to accept. Nishant explained nishant does have a call out to [facility] but not sure they will have a bed. Nishant explained that [facility] offered their sister facilities as options, [facility] or [facility]. Dtr agreeable to referrals being sent to both of these facilities. Referrals sent . Nishant to follow. - TURNER Benz 05/15/24 3:52 PM Occupational Therapy Treatment Discharge Recommendations OT Recommendations : Jail Facility SNF/ECF Comments: Pt appropriate for SNF [...] None Scoring Daily Activity Raw Score: 17 [facility] G Code Modifier: CK 05/15/24 1015 UE [...] Gait belt, RW, chair alarm Pacemaker/ICD: Pacemaker Telemetry/Embossing Tool Setter: Yes Other Cardiac Monitoring Devices: Cardiac Life [...] Patient will perform bed mobility with Modified Lyman Dates: Start: 05/11/24 Expected End: 06/01/24 Description: Goal Description: Disciplines: OT Problem: Functional Mobility Dates: Start: 05/11/24 Disciplines: OT Goal: Patient will perform functional mobility with Modified Lyman Dates: Start: 05/11/24 Expected End: 06/01/24 Description: Goal Description: Disciplines: OT Outcomes Date/Time User Outcome 05/15/24 1153 JSESIE Agosto Progressing 05/13/24 1453 JESSIE Campbell Progressing [...] Disciplines: OT Outcomes Date/Time User Outcome 05/15/24 115 JESSIE Agosto Progressing 05/13/24 1453 JESSIE Campbell [...] Patient will perform toilet transfers with Modified Lyman Dates: Start: 05/11/24 Expected End: 06/01/24 Description: Goal Description: Disciplines: OT Outcomes Date/Time User Outcome 05/13/24 1453 LOUISA Campbell/Ruby Progressing Goal Note filed on 05/13/24 1453 by LOUISA Campbell/uRby Evaluation of progress towards goal: Problem: Transfers Dates: Start: 05/11/24 Disciplines: OT Goal: Patient will perform transfers with Modified Lyman Dates: Start: 05/11/24 Expected End: 06/01/24 Description: Goal Description: Disciplines: OT Outcomes Date/Time User Outcome 05/15/24 1153 LOUISA Agosto/uRby Progressing 05/13/24 1453 JESSIE Campbell Progressing Goal Note filed on 05/13/24 1453 by JESSIE Campbell Evaluation of progress towards goal: Occupational Therapy Care Plan (Resolved) There are no resolved problems. Principal Problem: CHB (complete heart block) ([facility]) Active Problems: HTN (hypertension) ST elevation myocardial infarction (STEMI) ([facility]) Coronary artery disease involving [place] coronary artery of [place] heart Mixed hyperlipidemia Cosigned by PRIYA Mcneil/L at 05/15/2024 2:14 PM EDT Associated attestation - Merissa Felipe OTR/Ruby - 05/15/2024 2:14 PM EDT I have reviewed and agree with this note and education documentation for this visit. Physical Therapy Treatment Discharge Recommendations PT Recommendations: Jail Facility SNF/ECF Comments: Pt appropriate for SNF [...] RN Equipment: Gait belt, RW, chair alarm Telemetry/Embossing Tool Setter: Yes Other Cardiac Monitoring Devices: Cardiac Life [...] Patient will perform bed mobility with Modified Lyman Dates: Start: 05/11/24 Expected End: 05/31/24 Description: Goal Description: with proper BUE placement and sequencing Disciplines: PT Outcomes Date/Time User Outcome 05/13/24 1259 Ivanna Murray, IRAJ Progressing Goal Note filed on 05/14/24 0946 by Hannah Sue, Student MOTOR VEHICLE ESCORT DRIVER Evaluation of progress towards goal: Problem: Gait Dates: Start: 05/11/24 Disciplines: PT Goal: Patient will perform gait with Modified Lyman Dates: Start: 05/11/24 Expected End: 05/31/24 Description: With__RW__,__100__feet Goal Description: with proper gait pattern and safety awareness Disciplines: PT Outcomes Date/Time User Outcome 05/15/24 1140 Rashi Mitchell PTA Progressing 05/13/24 1259 Ivanna Murray MOTOR VEHICLE ESCORT DRIVER Progressing Goal Note filed on 05/15/24 1140 by Rashi Mitchell PTA Evaluation of progress towards goal: Problem: Stairs/Curb Dates: Start: 05/11/24 Disciplines: PT Goal: Patient will perform stairs/curb with Modified Lyman Dates: Start: 05/11/24 Expected End: 05/31/24 Description: __3___steps,__w/o___hand rails Goal Description: for safer entry into home Disciplines: PT Goal Note filed on 05/14/24 0946 by Hannah Sue, Student MOTOR VEHICLE ESCORT DRIVER Evaluation of progress towards goal: Problem: Standing Balance Dates: Start: 05/11/24 Disciplines: PT Goal: Improve balance to normal Dates: Start: 05/11/24 Expected End: 05/31/24 Description: Static/Dynamic to reduce risk of falls with all functional tasks Disciplines: PT Outcomes Date/Time User Outcome 05/15/24 1140 Rashi Mitchell PTA Progressing 05/14/24 0946 Hannah Sue, Student MOTOR VEHICLE ESCORT DRIVER Progressing 05/13/24 1259 Ivanna Murray PTA Progressing [...] Rashi Mitchell PTA Progressing 05/14/24 0946 Hannah Virkam, Student MOTOR VEHICLE ESCORT DRIVER Progressing 05/13/24 1259 Ivanna Murray PTA Progressing Goal Note filed on 05/15/24 1140 by Rashi Mitchell PTA Evaluation of progress towards goal: Problem: Transfers Dates: Start: 05/11/24 Disciplines: PT Goal: Patient will perform transfers with Modified Lyman Dates: Start: 05/11/24 Expected End: 05/31/24 Description: [...] problems. Principal Problem: CHB (complete heart block) ([facility]) Active Problems: HTN (hypertension) ST elevation myocardial infarction (STEMI) ([facility]) Coronary artery disease involving [place] coronary artery of [place] heart Mixed hyperlipidemia Cosigned by Janae Shaffer PT at 05/15/2024 12:37 PM EDT Associated attestation - Janae Shaffer PT - 05/15/2024 12:37 PM EDT I have reviewed and agree with this note and education documentation for this visit. DISCHARGE PLANNING NOTE Sw called [facility] and they have not reviewed the referral yet however she reports they do not have any available beds. Sw called pt's dtr and informed her. Dtr provided three more choices, [facility], [facility] and [facility] dtr will review list for more choices. Referrals sent. Sw to follow. - TURNER Benz 05/15/24 11:52 [...] at the bedside 7. Instruct patient/ patient residential sales representative about use of safety devices 8. Include patient/ patient residential sales representative in decisions related to safety [...] hygiene technique. 7. Identify and instruct patient/patient residential sales representative in use of appropriate isolation precautions for identified infection/symptoms. 8. Provide and discuss with patient/patient residential sales representative on educational MDRO sheet. 9. Encourage and monitor nutritional status daily and consult counselor manager if indicated. 10. Implement neutropenic guidelines as [...] Description: INTERVENTIONS: 1. Encourage patient or legal residential sales representative to report early pain and [...] per policy 9. Teach patient or legal residential sales representative interventions for comforting Outcome: Progressing [...] at the bedside 7. Instruct patient/ patient residential sales representative about use of safety devices 8. Include patient/ patient residential sales representative in decisions related to safety [...] hygiene technique. 7. Identify and instruct patient/patient residential sales representative in use of appropriate isolation precautions for identified infection/symptoms. 8. Provide and discuss with patient/patient residential sales representative on educational MDRO sheet. 9. Encourage and monitor nutritional status daily and consult counselor manager if indicated. 10. Implement neutropenic guidelines as needed. Outcome: Progressing Note: Evaluation of progress towards goal: Monitoring labs and vital signs; patient remains afebrile. Problem: Knowledge Deficit Goal: Patient/patient residential sales representative demonstrates understanding of disease process, [...] Description: INTERVENTIONS: 1. Encourage patient or legal residential sales representative to report early pain and [...] per policy 9. Teach patient or legal residential sales representative interventions for comforting Outcome: Progressing [...] at the bedside 7. Instruct patient/ patient residential sales representative about use of safety devices 8. Include patient/ patient residential sales representative in decisions related to safety Outcome: Progressing Note: Evaluation of progress towards goal: Pt remains free from falls and injuries since beginning of shift. Call light within reach. Bed rails up x2. Orientation reviewed. Hourly rounded maintained. Will continue to maintain safety until end of hospital stay. Problem: Knowledge Deficit Goal: Patient/patient residential sales representative demonstrates understanding of disease process, [...] Physical Therapy Treatment Discharge Recommendations PT Recommendations: Jail Facility Therapy Plan 6 Clicks: Basic Mobility [...] Yes PT Type of Visit: Treatment Precautions Telemetry/Embossing Tool Setter: Yes Pain Assessment Pain Assessment: No/denies pain [...] Date/Time User Outcome 05/13/24 1259 Ivanna Terri, MOTOR VEHICLE ESCORT DRIVER Progressing Problem: Bed Mobility Dates: Start: 05/11/24 Disciplines: PT Goal: Patient will perform bed mobility with Modified Lyman Dates: Start: 05/11/24 Expected End: 05/31/24 Description: Goal Description: with proper BUE placement and sequencing Disciplines: PT Outcomes Date/Time User Outcome 05/13/24 1259 Ivanna Susan, MOTOR VEHICLE ESCORT DRIVER Progressing Problem: Gait Dates: Start: 05/11/24 Disciplines: PT Goal: Patient will perform gait with Modified Lyman Dates: Start: 05/11/24 Expected End: 05/31/24 Description: With__RW__,__100__feet Goal Description: with proper gait pattern and safety awareness Disciplines: PT Outcomes Date/Time User Outcome 05/13/24 1259 Ivanna Murray PTA Progressing Problem: Stairs/Curb Dates: Start: 05/11/24 Disciplines: PT Goal: Patient will perform stairs/curb with Modified Lyman Dates: Start: 05/11/24 Expected End: 05/31/24 Description: [...] Goal: Patient will perform transfers with Modified Lyman Dates: Start: 05/11/24 Expected End: 05/31/24 Description: Goal Description: with proper BUE placement and sequencing Disciplines: PT Outcomes Date/Time User Outcome 05/13/24 1259 Ivanna Murray PTA Progressing Physical Therapy Care Plan (Resolved) There are no resolved problems. Principal Problem: CHB (complete heart block) ([facility]) Active Problems: HTN (hypertension) ST elevation myocardial infarction (STEMI) ([facility]) Coronary artery disease involving [place] coronary artery of [place] heart Mixed hyperlipidemia Cosigned by Janae Shaffer [...] Description: INTERVENTIONS: 1. Encourage patient or legal residential sales representative to report early pain and [...] per policy 9. Teach patient or legal residential sales representative interventions for comforting Outcome: Progressing Note: Evaluation of progress towards goal: Pt has had no c/o pain Problem: Knowledge Deficit Goal: Patient/patient residential sales representative demonstrates understanding of disease process, [...] Therapy Treatment Discharge Recommendations OT Recommendations : Jail Facility 6 Clicks: Daily Activity Putting on [...] RN Equipment: Gait belt, RW, chair alarm Telemetry/Embossing Tool Setter: Yes Other: High fall risk, h/o falls, [...] at end of session with call light wihtin reach and with RN aware. chair alarm on. [...] Patient will perform bed mobility with Modified Lyman Dates: Start: 05/11/24 Expected End: 06/01/24 Description: Goal Description: Disciplines: OT Problem: Functional Mobility Dates: Start: 05/11/24 Disciplines: OT Goal: Patient will perform functional mobility with Modified Lyman Dates: Start: 05/11/24 Expected End: 06/01/24 Description: [...] ADL/transfers. Disciplines: OT Outcomes Date/Time User Outcome 05/13/24 1453 JESSIE Campbell Progressing Goal Note filed on 05/13/24 1453 by JESSIE Campbell Evaluation of progress towards goal: Problem: Toilet Transfers Dates: Start: 05/11/24 Disciplines: OT Goal: Patient will perform toilet transfers with Modified Lyman Dates: Start: 05/11/24 Expected End: 06/01/24 Description: Goal Description: Disciplines: OT Outcomes Date/Time User Outcome 05/13/24 1453 JESSIE Campbell Progressing Goal Note filed on 05/13/24 1453 by JESSIE Campbell Evaluation of progress towards goal: Problem: Transfers Dates: Start: 05/11/24 Disciplines: OT Goal: Patient will perform transfers with Modified Lyman Dates: Start: 05/11/24 Expected End: 06/01/24 Description: Goal Description: Disciplines: OT Outcomes Date/Time User Outcome 05/13/24 1453 JESSIE Campbell Progressing Goal Note filed on 05/13/24 1453 by JESSIE Campbell Evaluation of progress towards goal: Occupational Therapy Care Plan (Resolved) There are no resolved problems. Principal Problem: CHB (complete heart block) ([facility]) Active Problems: HTN (hypertension) ST elevation myocardial infarction (STEMI) ([facility]) Coronary artery disease involving [place] coronary artery of [place] heart Mixed hyperlipidemia Cosigned by PRIYA Hernandez/Ruby at 05/13/2024 3:07 PM EDT Associated attestation - Elizabeth Polanco OTR/Ruby - 05/13/2024 3:07 PM EDT I have reviewed and agree with this note and education documentation for this visit. Problem: Pain Goal: Patient goal is pain score less than 4, able to rest, and participant in treatment plan as appropriate Description: INTERVENTIONS: 1. Encourage patient or legal residential sales representative to report early pain and [...] per policy 9. Teach patient or legal residential sales representative interventions for comforting Outcome: Progressing [...] at the bedside 7. Instruct patient/ patient residential sales representative about use of safety devices 8. Include patient/ patient residential sales representative in decisions related to safety [...] hygiene technique. 7. Identify and instruct patient/patient residential sales representative in use of appropriate isolation precautions for identified infection/symptoms. 8. Provide and discuss with patient/patient residential sales representative on educational MDRO sheet. 9. Encourage and monitor nutritional status daily and consult counselor manager if indicated. 10. Implement neutropenic guidelines as needed. Outcome: Progressing Note: Evaluation of progress towards goal: no signs/symptoms of infection noted Problem: Knowledge Deficit Goal: Patient/patient residential sales representative demonstrates understanding of disease process, [...] Score of =/> 25 or indicated by [facility] Assessment Goal: Patient should be free from fall Description: Interventions: 1. [place] to environment 2. Hourly rounds addressing the [...] non-skid footwear 11. Teach patient and patient residential sales representative to maintain environment for safety [...] (cane, walker) within reach 19. Request patient residential sales representative bring adaptive equipment/mobility aids from home or obtain and provide as needed 20. Consult pharmacy regarding effects of med's affecting mobility, cognition, and alternatives 21. Obtain physician order for PT if risk factors associated with mobility are present 22. Obtain physician order for OT as appropriate 23. Utilize diversional activities 24. Educate patient and patient residential sales representative how to maintain a safe environment during visitation times (notify nurse prior to leaving bedside) 25. Consider appropriateness of medical or non-medical auditor 26. Set up voiding schedule as appropriate [...] Collaborate with ancillary departments 14. Include patient/patient residential sales representative in decisions related to anxiety [...] supplement as ordered 13. Collaborate with clinical counselor manager 14. Include patient/ patient's residential sales representative in decisions related to nutrition [...] supplement as ordered 13. Collaborate with clinical counselor manager 14. Include patient/ patient's residential sales representative in decisions related to nutrition [...] sign off Fabio Viveros MD Psychiatry PGY-1 [facility] Department of Neurosciences & Psychiatry DISCHARGE PLANNING NOTE Referral sent to. [facility] [place], [place] (P# ; F# ) [facility] (P# ; F# ) DISCHARGE PLANNING NOTE Pt not sure about SNF but agreeable for CN to talk to daughters. Called [place]- only contact to discuss. Discussed PT/OT recommends SNF. She states family agrees and would like a referral to [place]- tasked. Also sent list to daughter in case additional choices are needed - Cherie Day RN 05/12/24 11:38 AM Received choice from daughter for second choice- [facility] [employer] [facility] . Tasked also - Cherie Day RN 05/12/24 11:47 AM Problem: Pain Goal: Patient goal is pain score less than 4, able to rest, and participant in treatment plan as appropriate Description: INTERVENTIONS: 1. Encourage patient or legal residential sales representative to report early pain and [...] per policy 9. Teach patient or legal residential sales representative interventions for comforting Outcome: Progressing Note: Evaluation of progress towards goal: Pt able to report pain according to 0/10 pain scale. Medicating patient for pain per orders. Problem: Knowledge Deficit Goal: Patient/patient residential sales representative demonstrates understanding of disease process, [...] list for pt. Discussed with pt and recruitment intern will f/u with pt/family tomorrow. Pt will need acceptance and auth - Cherie Day RN 05/11/24 4:26 PM Physical Therapy Evaluation Discharge Recommendations PT Recommendations: [facility] SNF/ECF Comments: To improve safety awareness [...] resulting from recent admit on 05/07/24 from [place] ED s/p fall; pt c/o chest pain, dizziness and lightheadedness. No LOC. Pt with several episodes of unresponsiveness; some compressions needed. Flight to [facility] CICU. EKG: STEMI. 05/07 pathology laboratory director: GARETT to LAD 05/08 Trop peak 51,668 05/09 pathology laboratory director: PCI of OM 05/10 Neuro consulted: hallucinations, memory loss likely due to metabolic encephalopathy. CT brain (-) EEG: normal. Possible Echo, life vest prior to discharge. CIWA protocol, delirium precautions. 05/11 Hgb 11.0 Past Medical History: Diagnosis Date Asthma Asthma Back pain Cervical disc disorder CHB (complete heart block) ([facility]) 05/07/2024 HTN (hypertension) Hx of scabies Low back pain Lumbosacral disc disease Neck pain Osteoarthritis TMJ (temporomandibular joint syndrome) Past Surgical History: Procedure Laterality Date Cardiac Invasive N/A 05/09/2024 Performed by Gilberto Zepeda MD at [facility] Cardiac Invasive-cors N/A 05/07/2024 Performed by Gilberto Zepeda MD at [facility] SECTION SECTION 1980,,, INJECTION MEDIAL BRANCH NERVE BLOCK: left C34 45 56 Left 03/16/2018 Performed by Manav Rosario MD at [facility] INJECTION MEDIAL BRANCH NERVE BLOCK: left c34 45 56 Left 02/12/2018 Performed by Manav Rosario MD at [facility] INJECTION MEDIAL BRANCH NERVE BLOCK: right C34 45 56 Right 09/14/2018 Performed by Manav Rosario MD at [facility] INJECTION MEDIAL BRANCH NERVE BLOCK: right C34 45 56mbb Right 07/23/2018 Performed by Manav Rosario MD at [facility] Insert/replace temporary single lead pacemaker N/A 05/07/2024 Performed by Gilberto Zepeda MD at [facility] Intravascular ultrasound initial vessel N/A 05/07/2024 Performed by Gilberto Zepeda MD at [facility] ORTHOPEDIC SURGERY Percutaneous coronary intervention N/A 05/07/2024 Performed by Gilberto Zepeda MD at [facility] Percutaneous coronary intervention of OM N/A 05/09/2024 Performed by Gilberto Zepeda MD at [facility] RADIO FREQUENCY ABLATION Right C 3/4, 4/5, 5/6 Right 11/15/2019 Performed by Manav Rosario MD at [facility] RADIO FREQUENCY ABLATION: left C34 45 56rfa Left 04/30/2018 Performed by Manav Rosario MD at [facility] RADIOFREQUENCY ABLATION SPINAL: Right C 4/5 5/6 Left 07/08/2022 Performed by Manav Rosario MD at [facility] RADIOFREQUENCY ABLATION SPINAL: right C 4/5 5/6 Right 07/29/2022 Performed by Manav Rosario MD at [facility] Revascularization/drug eluting stent/ left anterior descending N/A 05/07/2024 Performed by Gilberto Zepeda MD at [facility] ROTATOR CUFF REPAIR Left Stent drug-eluting/ left circumflex N/A 05/09/2024 Performed by Gilberto Zepeda MD at [facility] TONSILLECTOMY 1970 PT Treatment/Interventions: [...] belt, RW, hylton catheter, chair alarm, telesitter Telemetry/Embossing Tool Setter: Yes Oxygen Used: 2L on arrival removed [...] Stairs in Home: FF to 2nd floor press operator Rails in Home: Left Bathroom Shower/Tub: Tub/shower [...] Patient will perform bed mobility with Modified Lyman Dates: Start: 05/11/24 Expected End: 05/31/24 Description: Goal Description: with proper BUE placement and sequencing Disciplines: PT Problem: Gait Dates: Start: 05/11/24 Disciplines: PT Goal: Patient will perform gait with Modified Lyman Dates: Start: 05/11/24 Expected End: 05/31/24 Description: With__RW__,__100__feet Goal Description: with proper gait pattern and safety awareness Disciplines: PT Problem: Stairs/Curb Dates: Start: 05/11/24 Disciplines: PT Goal: Patient will perform stairs/curb with Modified Lyman Dates: Start: 05/11/24 Expected End: 05/31/24 Description: [...] Goal: Patient will perform transfers with Modified Lyman Dates: Start: 05/11/24 Expected End: 05/31/24 Description: Goal Description: with proper BUE placement and sequencing Disciplines: PT Physical Therapy Care Plan (Resolved) There are no resolved problems. Principal Problem: CHB (complete heart block) ([facility]) Active Problems: ST elevation myocardial infarction (STEMI) ([facility]) Coronary artery disease involving [place] coronary artery of [place] heart Problem: Pain Goal: Patient goal is pain score less than 4, able to rest, and participant in treatment plan as appropriate Description: INTERVENTIONS: 1. Encourage patient or legal residential sales representative to report early pain and [...] per policy 9. Teach patient or legal residential sales representative interventions for comforting Outcome: Progressing Note: Evaluation of progress towards goal: Pt resting comfortably in chair at this time, denies pain needs. Pt educated on pain medication available and encouraged to express pain needs. Problem: Moderate - High Risk Fall Score Description: Lew Fall Score of =/> 25 or indicated by [facility] Assessment Goal: Patient should be free from fall Description: Interventions: 1. [place] to environment 2. Hourly rounds addressing the [...] non-skid footwear 11. Teach patient and patient residential sales representative to maintain environment for safety [...] (cane, walker) within reach 19. Request patient residential sales representative bring adaptive equipment/mobility aids from home or obtain and provide as needed 20. Consult pharmacy regarding effects of med's affecting mobility, cognition, and alternatives 21. Obtain physician order for PT if risk factors associated with mobility are present 22. Obtain physician order for OT as appropriate 23. Utilize diversional activities 24. Educate patient and patient residential sales representative how to maintain a safe environment during visitation times (notify nurse prior to leaving bedside) 25. Consider appropriateness of medical or non-medical auditor 26. Set up voiding schedule as appropriate [...] Therapy Evaluation Discharge Recommendations OT Recommendations : [facility] SNF/ECF Comments: Due to decline in functional status, recommend continued skilled OT to address safety, ADL and mobility deficits to improve independence and decrease caregiver burden in order to return to [facility]. 6 Clicks: Daily Activity Putting on and [...] 63 y/o female who initially presented to [place] ED s/p fall; pt c/o chest pain, dizziness and lightheadedness. No LOC. Pt with several episodes of unresponsiveness; some compressions needed. Flight to [facility] CICU. EKG: STEMI. 05/07 pathology laboratory director: GARETT to LAD 05/08 Trop peak 51,668 05/09 pathology laboratory director: PCI of OM 05/10 Neuro consulted: hallucinations, memory loss likely due to metabolic encephalopathy. CT brain (-) EEG: normal. Possible Echo, life vest prior to discharge. CIWA protocol, delirium precautions. 05/11 Hgb 11.0 Past Medical History: Diagnosis Date Asthma Asthma Back pain Cervical disc disorder CHB (complete heart block) ([facility]) 05/07/2024 HTN (hypertension) Hx of scabies Low back pain Lumbosacral disc disease Neck pain Osteoarthritis TMJ (temporomandibular joint syndrome) Past Surgical History: Procedure Laterality Date Cardiac Invasive N/A 05/09/2024 Performed by Gilberto Zepeda MD at [facility] Cardiac Invasive-cors N/A 05/07/2024 Performed by Gilberto Zepeda MD at [facility] SECTION SECTION 1980,,, INJECTION MEDIAL BRANCH NERVE BLOCK: left C34 45 56 Left 03/16/2018 Performed by Manav Rosario MD at [facility] INJECTION MEDIAL BRANCH NERVE BLOCK: left c34 45 56 Left 02/12/2018 Performed by Manav Rosario MD at [facility] INJECTION MEDIAL BRANCH NERVE BLOCK: right C34 45 56 Right 09/14/2018 Performed by Manav Rosario MD at [facility] INJECTION MEDIAL BRANCH NERVE BLOCK: right C34 45 56mbb Right 07/23/2018 Performed by Manav Rosario MD at [facility] Insert/replace temporary single lead pacemaker N/A 05/07/2024 Performed by Gilberto Zepeda MD at [facility] Intravascular ultrasound initial vessel N/A 05/07/2024 Performed by Gilberot Zepeda MD at [facility] ORTHOPEDIC SURGERY Percutaneous coronary intervention N/A 05/07/2024 Performed by Gilberto Zepeda MD at [facility] Percutaneous coronary intervention of OM N/A 05/09/2024 Performed by Gilberto Zepeda MD at [facility] RADIO FREQUENCY ABLATION Right C 3/4, 4/5, 5/6 Right 11/15/2019 Performed by Manav Rosario MD at [facility] RADIO FREQUENCY ABLATION: left C34 45 56rfa Left 04/30/2018 Performed by Manav Rosario MD at [facility] RADIOFREQUENCY ABLATION SPINAL: Right C 4/5 5/6 Left 07/08/2022 Performed by Manav Rosario MD at [facility] RADIOFREQUENCY ABLATION SPINAL: right C 4/5 5/6 Right 07/29/2022 Performed by Manav Rosario MD at [facility] Revascularization/drug eluting stent/ left anterior descending N/A 05/07/2024 Performed by Gilberto Zepeda MD at [facility] ROTATOR CUFF REPAIR Left Stent drug-eluting/ left circumflex N/A 05/09/2024 Performed by Gilberto Zepeda MD at [facility] TONSILLECTOMY 1970 OT Treatment/Interventions: [...] belt, RW, hylton catheter, chair alarm, telesitter Telemetry/Embossing Tool Setter: Yes Oxygen Used: Pt initially on 2L; [...] Stairs in Home: Flight to 2nd floor press operator Rails in Home: Left Bathroom Shower/Tub: Tub/shower [...] grossly independent with IADL; pt goes to [employer]. Pt does not drive; takes the bus. Vocational: Retired ADL / IADL Hand Dominance: Left Where Assessed: Edge of bed, Chair Eating Assistance: Modified independent Grooming Assistance: Min assist Bathing/Showering Assistance: Mod assist Toilet/Commode Assistance: Total assist (Hylton) UE Dressing Assistance: Min assist LE Dressing Assistance: Mod assist Footwear Assistance: Mod assist Other: Pt with hylton in place. Min A to [facility]. Increased assist with BADL tasks at this time due to decreased overall strength/activity tolerance. Assist required for thoroughness with brushing hair. Mod I with eating. Home Management - IADL Other: Pt with hylton in place. Min A to [facility]. Increased assist with BADL tasks at this [...] Patient will perform bed mobility with Modified Lyman Dates: Start: 05/11/24 Expected End: 06/01/24 Description: Goal Description: Disciplines: OT Problem: Functional Mobility Dates: Start: 05/11/24 Disciplines: OT Goal: Patient will perform functional mobility with Modified Lyman Dates: Start: 05/11/24 Expected End: 06/01/24 Description: [...] Patient will perform toilet transfers with Modified Lyman Dates: Start: 05/11/24 Expected End: 06/01/24 Description: Goal Description: Disciplines: OT Problem: Transfers Dates: Start: 05/11/24 Disciplines: OT Goal: Patient will perform transfers with Modified Lyman Dates: Start: 05/11/24 Expected End: 06/01/24 Description: Goal Description: Disciplines: OT Occupational Therapy Care Plan (Resolved) There are no resolved problems. Principal Problem: CHB (complete heart block) ([facility]) Active Problems: ST elevation myocardial infarction (STEMI) (CMS-HCC) Coronary artery disease involving [place] coronary artery of [place] heart Problem: Pain Goal: Patient goal is pain score less than 4, able to rest, and participant in treatment plan as appropriate Description: INTERVENTIONS: 1. Encourage patient or legal residential sales representative to report early pain and [...] per policy 9. Teach patient or legal residential sales representative interventions for comforting Outcome: Progressing [...] at the bedside 7. Instruct patient/ patient residential sales representative about use of safety devices 8. Include patient/ patient residential sales representative in decisions related to safety Outcome: Progressing Note: Evaluation of progress towards goal: Patient remains free from injury or falls. Bed alarm on, low, and locked. Call light within reach. Telesitter maintained. Gait unable to be assessed. Problem: Knowledge Deficit Goal: Patient/patient residential sales representative demonstrates understanding of disease process, [...] Collaborate with ancillary departments 14. Include patient/patient residential sales representative in decisions related to anxiety [...] at the bedside 7. Instruct patient/ patient residential sales representative about use of safety devices 8. Include patient/ patient residential sales representative in decisions related to safety Outcome: Progressing Note: Evaluation of progress towards goal: Patient remains injury free during hospital stay. Safety measures used when caring for patient. Problem: Moderate - High Risk Fall Score Description: Lew Fall Score of =/> 25 or indicated by [facility] Assessment Goal: Patient should be free from fall Description: Interventions: 1. [place] to environment 2. Hourly rounds addressing the [...] non-skid footwear 11. Teach patient and patient residential sales representative to maintain environment for safety [...] (cane, walker) within reach 19. Request patient residential sales representative bring adaptive equipment/mobility aids from home or obtain and provide as needed 20. Consult pharmacy regarding effects of med's affecting mobility, cognition, and alternatives 21. Obtain physician order for PT if risk factors associated with mobility are present 22. Obtain physician order for OT as appropriate 23. Utilize diversional activities 24. Educate patient and patient residential sales representative how to maintain a safe environment during visitation times (notify nurse prior to leaving bedside) 25. Consider appropriateness of medical or non-medical auditor 26. Set up voiding schedule as appropriate (every 2 hours) Outcome: Progressing Note: Evaluation of progress towards goal: pt free from falls and injury, pt safety maintained, call light within reach, SPH equipment used Images from the original note were not included. DISCHARGE PLANNING NOTE Food And Beverage Server met with patient and spoke with patient's daughter, introduced self, and explained role. Patient educated on safe discharge plan. Pt admitted 05/07/2024 with CHB (complete heart block) (CMS-HCC) [I44.2] Acute electrocardiogram changes [R94.31] ST elevation CT (STEMI) (CMS-HCC) [I21.3] per chart review. Consults: Cardiology, Electrophysiology, and Nephrology, neurology. Discharge Barriers per Daily Transition Rounds and chart review: lifevest, CIWA, telesitter. Past Medical History: Diagnosis Date Asthma Asthma Back pain Cervical disc disorder CHB (complete heart block) ([facility]) 05/07/2024 HTN (hypertension) Hx of scabies Low back pain Lumbosacral disc disease Neck pain Osteoarthritis TMJ (temporomandibular joint syndrome) Prior to admission patient was living alone and self care. Medical equipment patient used prior to admission includes: None. Patient denies need for prescription medication assistance resources. PCP: ROSITA Lance Pharmacy:[facility] PCP and pharmacy confirmed with patient. CN offered to assist with follow up appointment arrangements; patient declines - states will self-schedule follow up appointments. [facility] Casi added to Follow Up Providers for [...] Description: INTERVENTIONS: 1. Encourage patient or legal residential sales representative to report early pain and [...] per policy 9. Teach patient or legal residential sales representative interventions for comforting 05/09/20242019 by DONTE Almeida Outcome: Progressing Note: Evaluation of progress towards goal: Pt reports no pain at this time and is able to rest comfortably. 05/09/20242018 by DONTE Almeida Outcome: Progressing Note: Evaluation [...] at the bedside 7. Instruct patient/ patient residential sales representative about use of safety devices 8. Include patient/ patient residential sales representative in decisions related to safety [...] hygiene technique. 7. Identify and instruct patient/patient residential sales representative in use of appropriate isolation precautions for identified infection/symptoms. 8. Provide and discuss with patient/patient residential sales representative on educational MDRO sheet. 9. Encourage and monitor nutritional status daily and consult counselor manager if indicated. 10. Implement neutropenic guidelines as needed. Outcome: Progressing Note: Evaluation of progress towards goal: Pt remained afebrile throughout shift and showed no s/s of infection. Problem: Knowledge Deficit Goal: Patient/patient residential sales representative demonstrates understanding of disease process, [...] Score of =/> 25 or indicated by [facility] Assessment Goal: Patient should be free from fall Description: Interventions: 1. [place] to environment 2. Hourly rounds addressing the [...] non-skid footwear 11. Teach patient and patient residential sales representative to maintain environment for safety [...] (cane, walker) within reach 19. Request patient residential sales representative bring adaptive equipment/mobility aids from home or obtain and provide as needed 20. Consult pharmacy regarding effects of med's affecting mobility, cognition, and alternatives 21. Obtain physician order for PT if risk factors associated with mobility are present 22. Obtain physician order for OT as appropriate 23. Utilize diversional activities 24. Educate patient and patient residential sales representative how to maintain a safe environment during visitation times (notify nurse prior to leaving bedside) 25. Consider appropriateness of medical or non-medical auditor 26. Set up voiding schedule as appropriate [...] and risks discussed with: patient Indication(s) for Agricultural Research Technologist Visit: ACS > 24hrs Chest Pain Symptom Assessment: typical Cardiovascular Instability: No Heart Failure: Yes Congestive Heart Failure (NYHA Classification most recent): III Heart Failure Newly Diagnosed: Yes Heart Failure Type: Systolic Electrocardiac Assessment Method: ECG Results: normal and abnormal Stress Test Performed: No Cardiac CTA: No [facility] Clinical Frailty Scale (Assessment immediately prior to [...] Documentation [facility] Health Information Management Email: [email or web address] If you have any questions or concerns, regarding this query, please call or send them to me via e-mail. The patient's Clinical Indicators include: As above. CDI RESPONSE TEXT: Provider dismissed this query because it was not applicable to the patient or not a valid query. Unable to assess Query created by: LisaNiurkaGale on 05/09/2024 9:45 AM Electronically signed by: Alfa Gregory MD 05/09/2024 1:15 PM Problem: Pain Goal: Patient goal is pain score less than 4, able to rest, and participant in treatment plan as appropriate Description: INTERVENTIONS: 1. Encourage patient or legal residential sales representative to report early pain and [...] per policy 9. Teach patient or legal residential sales representative interventions for comforting Outcome: Progressing [...] at the bedside 7. Instruct patient/ patient residential sales representative about use of safety devices 8. Include patient/ patient residential sales representative in decisions related to safety [...] hygiene technique. 7. Identify and instruct patient/patient residential sales representative in use of appropriate isolation precautions for identified infection/symptoms. 8. Provide and discuss with patient/patient residential sales representative on educational MDRO sheet. 9. Encourage and monitor nutritional status daily and consult counselor manager if indicated. 10. Implement neutropenic guidelines as needed. Outcome: Progressing Note: Evaluation of progress towards goal: afebrile. No s/s infection noted Problem: Knowledge Deficit Goal: Patient/patient residential sales representative demonstrates understanding of disease process, [...] Score of =/> 25 or indicated by [facility] Assessment Goal: Patient should be free from fall Description: Interventions: 1. [place] to environment 2. Hourly rounds addressing the [...] non-skid footwear 11. Teach patient and patient residential sales representative to maintain environment for safety [...] (cane, walker) within reach 19. Request patient residential sales representative bring adaptive equipment/mobility aids from home or obtain and provide as needed 20. Consult pharmacy regarding effects of med's affecting mobility, cognition, and alternatives 21. Obtain physician order for PT if risk factors associated with mobility are present 22. Obtain physician order for OT as appropriate 23. Utilize diversional activities 24. Educate patient and patient residential sales representative how to maintain a safe environment during visitation times (notify nurse prior to leaving bedside) 25. Consider appropriateness of medical or non-medical auditor 26. Set up voiding schedule as appropriate [...] supplement as ordered 13. Collaborate with clinical counselor manager 14. Include patient/ patient's residential sales representative in decisions related to nutrition [...] supplement as ordered 13. Collaborate with clinical counselor manager 14. Include patient/ patient's residential sales representative in decisions related to nutrition [...] Description: INTERVENTIONS: 1. Encourage patient or legal residential sales representative to report early pain and [...] per policy 9. Teach patient or legal residential sales representative interventions for comforting Outcome: Progressing [...] at the bedside 7. Instruct patient/ patient residential sales representative about use of safety devices 8. Include patient/ patient residential sales representative in decisions related to safety [...] hygiene technique. 7. Identify and instruct patient/patient residential sales representative in use of appropriate isolation precautions for identified infection/symptoms. 8. Provide and discuss with patient/patient residential sales representative on educational MDRO sheet. 9. Encourage and monitor nutritional status daily and consult counselor manager if indicated. 10. Implement neutropenic guidelines as needed. Outcome: Progressing Note: Evaluation of progress towards goal: Pt remained afebrile throughout shift and showed no s/s of infection. Problem: Knowledge Deficit Goal: Patient/patient residential sales representative demonstrates understanding of disease process, [...] be free from fall Description: Interventions: 1. [place] to environment 2. Hourly rounds addressing the [...] non-skid footwear 11. Teach patient and patient residential sales representative to maintain environment for safety [...] (cane, walker) within reach 19. Request patient residential sales representative bring adaptive equipment/mobility aids from home or obtain and provide as needed 20. Consult pharmacy regarding effects of med's affecting mobility, cognition, and alternatives 21. Obtain physician order for PT if risk factors associated with mobility are present 22. Obtain physician order for OT as appropriate 23. Utilize diversional activities 24. Educate patient and patient residential sales representative how to maintain a safe environment during visitation times (notify nurse prior to leaving bedside) 25. Consider appropriateness of medical or non-medical auditor 26. Set up voiding schedule as appropriate [...] Description: INTERVENTIONS: 1. Encourage patient or legal residential sales representative to report early pain and [...] per policy 9. Teach patient or legal residential sales representative interventions for comforting Outcome: Progressing [...] at the bedside 7. Instruct patient/ patient residential sales representative about use of safety devices 8. Include patient/ patient residential sales representative in decisions related to safety [...] hygiene technique. 7. Identify and instruct patient/patient residential sales representative in use of appropriate isolation precautions for identified infection/symptoms. 8. Provide and discuss with patient/patient residential sales representative on educational MDRO sheet. 9. Encourage and monitor nutritional status daily and consult counselor manager if indicated. 10. Implement neutropenic guidelines as needed. Outcome: Progressing Note: Evaluation of progress towards goal: afebrile. WBC 10.0 Problem: Knowledge Deficit Goal: Patient/patient residential sales representative demonstrates understanding of disease process, [...] be free from fall Description: Interventions: 1. [place] to environment 2. Hourly rounds addressing the [...] non-skid footwear 11. Teach patient and patient residential sales representative to maintain environment for safety [...] (cane, walker) within reach 19. Request patient residential sales representative bring adaptive equipment/mobility aids from home or obtain and provide as needed 20. Consult pharmacy regarding effects of med's affecting mobility, cognition, and alternatives 21. Obtain physician order for PT if risk factors associated with mobility are present 22. Obtain physician order for OT as appropriate 23. Utilize diversional activities 24. Educate patient and patient residential sales representative how to maintain a safe environment during visitation times (notify nurse prior to leaving bedside) 25. Consider appropriateness of medical or non-medical auditor 26. Set up voiding schedule as appropriate [...] supplement as ordered 13. Collaborate with clinical counselor manager 14. Include patient/ patient's residential sales representative in decisions related to nutrition [...] supplement as ordered 13. Collaborate with clinical counselor manager 14. Include patient/ patient's residential sales representative in decisions related to nutrition [...] Description: INTERVENTIONS: 1. Encourage patient or legal residential sales representative to report early pain and [...] per policy 9. Teach patient or legal residential sales representative interventions for comforting Outcome: Progressing [...] at the bedside 7. Instruct patient/ patient residential sales representative about use of safety devices 8. Include patient/ patient residential sales representative in decisions related to safety [...] hygiene technique. 7. Identify and instruct patient/patient residential sales representative in use of appropriate isolation precautions for identified infection/symptoms. 8. Provide and discuss with patient/patient residential sales representative on educational MDRO sheet. 9. Encourage and monitor nutritional status daily and consult counselor manager if indicated. 10. Implement neutropenic guidelines as needed. Outcome: Progressing Note: Evaluation of progress towards goal: no s/s active infection noted. Afebrile, WBC WNL, invasive lines without redness, drainage, or swelling Problem: Knowledge Deficit Goal: Patient/patient residential sales representative demonstrates understanding of disease process, [...] Progressing Note: Evaluation of progress towards goal: immigration case manager following for DC planning when appropriate Problem: Moderate - High Risk Fall Score Description: Lew Fall Score of =/> 25 or indicated by [facility] Assessment Goal: Patient should be free from fall Description: Interventions: 1. [place] to environment 2. Hourly rounds addressing the [...] non-skid footwear 11. Teach patient and patient residential sales representative to maintain environment for safety [...] (cane, walker) within reach 19. Request patient residential sales representative bring adaptive equipment/mobility aids from home or obtain and provide as needed 20. Consult pharmacy regarding effects of med's affecting mobility, cognition, and alternatives 21. Obtain physician order for PT if risk factors associated with mobility are present 22. Obtain physician order for OT as appropriate 23. Utilize diversional activities 24. Educate patient and patient residential sales representative how to maintain a safe environment during visitation times (notify nurse prior to leaving bedside) 25. Consider appropriateness of medical or non-medical auditor 26. Set up voiding schedule as appropriate [...] Collaborate with ancillary departments 14. Include patient/patient residential sales representative in decisions related to anxiety [...] care 6. Collaborate with pastoral/spiritual care, social media strategist, mental health counselor as needed. 7. Instruct patient on diversional activities such as physical activity, distraction, and deep breathing exercises to assist with coping 8. Involve patient's residential sales representative in care Outcome: Progressing Note: [...] supplement as ordered 13. Collaborate with clinical counselor manager 14. Include patient/ patient's residential sales representative in decisions related to nutrition [...] supplement as ordered 13. Collaborate with clinical counselor manager 14. Include patient/ patient's residential sales representative in decisions related to nutrition [...] Description: INTERVENTIONS: 1. Encourage patient or legal residential sales representative to report early pain and [...] per policy 9. Teach patient or legal residential sales representative interventions for comforting Outcome: Progressing [...] at the bedside 7. Instruct patient/ patient residential sales representative about use of safety devices 8. Include patient/ patient residential sales representative in decisions related to safety [...] hygiene technique. 7. Identify and instruct patient/patient residential sales representative in use of appropriate isolation precautions for identified infection/symptoms. 8. Provide and discuss with patient/patient residential sales representative on educational MDRO sheet. 9. Encourage and monitor nutritional status daily and consult counselor manager if indicated. 10. Implement neutropenic guidelines as needed. Outcome: Progressing Note: Evaluation of progress towards goal: afebrile. WBC 17.7 Problem: Knowledge Deficit Goal: Patient/patient residential sales representative demonstrates understanding of disease process, [...] be free from fall Description: Interventions: 1. [place] to environment 2. Hourly rounds addressing the [...] non-skid footwear 11. Teach patient and patient residential sales representative to maintain environment for safety [...] (cane, walker) within reach 19. Request patient residential sales representative bring adaptive equipment/mobility aids from home or obtain and provide as needed 20. Consult pharmacy regarding effects of med's affecting mobility, cognition, and alternatives 21. Obtain physician order for PT if risk factors associated with mobility are present 22. Obtain physician order for OT as appropriate 23. Utilize diversional activities 24. Educate patient and patient residential sales representative how to maintain a safe environment during visitation times (notify nurse prior to leaving bedside) 25. Consider appropriateness of medical or non-medical auditor 26. Set up voiding schedule as appropriate [...] Collaborate with ancillary departments 14. Include patient/patient residential sales representative in decisions related to anxiety [...] supplement as ordered 13. Collaborate with clinical counselor manager 14. Include patient/ patient's residential sales representative in decisions related to nutrition Outcome: Progressing Note: Evaluation of progress towards goal: npo for cardiac cath Pre Procedure Evaluation: H&P was reviewed and the patient was examined. No change has occurred in the patient's condition since the H&P was completed. ASA: 6 Emergent Mallampati: Unable to assess Indication(s) for Agricultural Research Technologist Visit: ACS <= 24 hrs and Cardiomyopathy [...] Stress Test Performed: No Cardiac CTA: No [facility] Clinical Frailty Scale (Assessment immediately prior to procedure): 6: Moderately Frail Cardiac Arrest Out of Hospital: No Cardiac Arrest at Transferring Facility: No documented in this encounter [facility] 05-17-2024 History of Present illness Narrative Images from the original note were not included. [facility]IC[facility] [address] [facility] [address] Hospital Medicine Progress Note Patient: Alie Briones Date of : 1960 Room: [place] [address] PCP: [facility] Casi Admission date: 05/07/2024 3:54 PM Encounter date: [...] from the original result were not included. [facility] EEG REPORT EEG Service Date: 05/10/24 Date of Report: 05/10/24 History: Alie Briones is a 63 y.o. female with hallucinations and memory loss who is undergoing EEG to evaluate for seizures. Centrally active medications: Buspar, diphenydramine, lorazepam, morphine. Procedure: This EEG was acquired with electrodes placed according to the [id number] electrode placement system. The EEG was acquired [...] of intermittent seizures. Kat Marquez M.D., Ph.D. Unit Trust Manager [facility] Cardiac Invasive Result Date: 05/10/2024 Narrative: [...] aggressive medical management. Recommend follow-up with primary filling mixer outpatient. Echo limited W/O contrast Result Date: 05/08/2024 Narrative: Left Ventricle: Left ventricle appears normal in size. Systolic function is moderately to severely decreased with an ejection fraction of 30-35%. Aortic Valve: There is no regurgitation or stenosis. Mitral Valve: There is abtvu-it-[id number] regurgitation. There is no evidence of mitral [...] LIST Principal Problem: CHB (complete heart block) ([facility]) Active Problems: HTN (hypertension) ST elevation myocardial infarction (STEMI) ([facility]) Coronary artery disease involving [place] coronary artery of [place] heart Mixed hyperlipidemia ASSESSMENT & PLAN Complete heart block in setting of STEMI with recurrent syncope, resolved, now with LAFB/RBBB Electrophysiology signed off, no plans for pacemaker at this time. Recommended discharging with outpatient 30 day MCOT to evaluate for any further episodes of high-degree heart block. Can follow-up with EP for primary prevention ICD/HOSPITAL CLEANER if EF remains less than 30% after [...] SNF, medically cleared after life vest fitting. Aniceto German APRN-SHADI 05/17/2024 2:47 PM [facility] 7AM-7PM & 7PM-7AM: EpicChat or page through On-Call Finder. Aniceto German APRN-SHADI 05/17/24 1451 I, Konrad Mix MD, personally [...] Physical Therapy Treatment Discharge Recommendations PT Recommendations: Jail Facility Therapy Plan 6 Clicks: Basic Mobility [...] Gait belt, RW, chair alarm, bed alarm Telemetry/Embossing Tool Setter: Yes Other Cardiac Monitoring Devices: Cardiac Life Vest Other: High fall risk, h/o falls, CIWA protocol, delirium/dementia precautions, 1500mL fluid restriction, bed/chair alarm Pain Assessment Pain Assessment: No/denies pain Bed Mobility Rolling: Stand by assist Supine to Sit: Stand by assist Other: Pt in bed upon arrival. Pt was able to complete bed mobility at [facility] for safety. Pt left seated in chair with chair alarm on and call light in reach. Transfers Sit to Stand: Contact guard assist Stand to Sit: Contact guard assist Toilet Transfers: Contact guard assist Other: Pt completed STS transfer with RW for BUE support at [facility] for safety. Multiple verbal cues needed for proper hand placement and stay with in the RW. Slight unsteadiness noted but no LOB. Gait Base of Support: Narrow Pattern: Decreased leydi Gait Assistance: Contact guard assist Assistive Device: Rolling walker Gait Distance: 70ft x2 plus 10ft Limiting Factors to Gait: Fatigue, Weakness, Decreased safety Other: Pt ambulated within halls at [facility] for safety. Pt used RW for BUE [...] User Outcome 05/17/24 1000 Hannah Sue, Student MOTOR VEHICLE ESCORT DRIVER Progressing 05/15/24 1140 Rashi Mitchell, IRAJ Progressing 05/13/24 1259 Ivanna Murray PTA Progressing Goal Note filed on 05/17/24 1000 by Hannah Sue, Student MOTOR VEHICLE ESCORT DRIVER Evaluation of progress towards goal: Problem: Bed Mobility Dates: Start: 05/11/24 Disciplines: PT Goal: Patient will perform bed mobility with Modified Lyman Dates: Start: 05/11/24 Expected End: 05/31/24 Description: Goal Description: with proper BUE placement and sequencing Disciplines: PT Outcomes Date/Time User Outcome 05/17/24 1000 Hannah Sue Student MOTOR VEHICLE ESCORT DRIVER Progressing 05/13/24 1259 Ivannawinter Murray, MOTOR VEHICLE ESCORT DRIVER Progressing Goal Note filed on 05/17/24 1000 by Hannah Sue Student MOTOR VEHICLE ESCORT DRIVER Evaluation of progress towards goal: Problem: Gait Dates: Start: 05/11/24 Disciplines: PT Goal: Patient will perform gait with Modified Lyman Dates: Start: 05/11/24 Expected End: 05/31/24 Description: With__RW__,__100__feet Goal Description: with proper gait pattern and safety awareness Disciplines: PT Outcomes Date/Time User Outcome 05/17/24 1000 Hannah Sue Student MOTOR VEHICLE ESCORT DRIVER Progressing 05/15/24 1140 Rashi Mitchell PTA Progressing 05/13/24 1259 Ivanna Murray, MOTOR VEHICLE ESCORT DRIVER Progressing Goal Note filed on 05/17/24 1000 by Urvashi Hartmann MOTOR VEHICLE ESCORT DRIVER Evaluation of progress towards goal: Problem: Stairs/Curb Dates: Start: 05/11/24 Disciplines: PT Goal: Patient will perform stairs/curb with Modified Lyman Dates: Start: 05/11/24 Expected End: 05/31/24 Description: __3___steps,__w/o___hand rails Goal Description: for safer entry into home Disciplines: PT Outcomes Date/Time User Outcome 05/17/24 1000 Urvashi Hartmann MOTOR VEHICLE ESCORT DRIVER Progressing Goal Note filed on 05/17/24 1000 by Urvashi Hartmann MOTOR VEHICLE ESCORT DRIVER Evaluation of progress towards goal: Problem: Standing Balance Dates: Start: 05/11/24 Disciplines: PT Goal: Improve balance to normal Dates: Start: 05/11/24 Expected End: 05/31/24 Description: Static/Dynamic to reduce risk of falls with all functional tasks Disciplines: PT Outcomes Date/Time User Outcome 05/17/24 1000 Hannah Sue Student MOTOR VEHICLE ESCORT DRIVER Progressing 05/15/24 1140 Rashi Mitchell MOTOR VEHICLE ESCORT DRIVER Progressing 05/14/24 0946 Hannah Sue Student MOTOR VEHICLE ESCORT DRIVER Progressing 05/13/24 1259 Ivanna Murray, MOTOR VEHICLE ESCORT DRIVER Progressing Goal Note filed on 05/17/24 1000 by Urvashi Hartmann MOTOR VEHICLE ESCORT DRIVER Evaluation of progress towards goal: Problem: Strength Dates: Start: 05/11/24 Disciplines: PT Goal: Improve strength Dates: Start: 05/11/24 Expected End: 05/31/24 Description: Of extremity/ location: BLE strength to WFL To facilitate: Safer functional mobility tasks Disciplines: PT Outcomes Date/Time User Outcome 05/17/24 1000 Hannah Sue Student MOTOR VEHICLE ESCORT DRIVER Progressing 05/15/24 1140 Rashi Mitchell, MOTOR VEHICLE ESCORT DRIVER Progressing 05/14/24 0946 Urvashi Hartmann MOTOR VEHICLE ESCORT DRIVER Progressing 05/13/24 1259 Ivanna Murray, MOTOR VEHICLE ESCORT DRIVER Progressing Goal Note filed on 05/17/24 1000 by Urvashi Hartmann MOTOR VEHICLE ESCORT DRIVER Evaluation of progress towards goal: Problem: Transfers Dates: Start: 05/11/24 Disciplines: PT Goal: Patient will perform transfers with Modified Lyman Dates: Start: 05/11/24 Expected End: 05/31/24 Description: Goal Description: with proper BUE placement and sequencing Disciplines: PT Outcomes Date/Time User Outcome 05/17/24 1000 Urvashi Hartmann MOTOR VEHICLE ESCORT DRIVER Progressing 05/15/24 1140 Rashi Mitchell PTA Progressing 05/13/24 1259 Ivanna Murray, MOTOR VEHICLE ESCORT DRIVER Progressing Goal Note filed on 05/17/24 1000 by Urvashi Hartmann MOTOR VEHICLE ESCORT DRIVER Evaluation of progress towards goal: Physical Therapy Care Plan (Resolved) There are no resolved problems. Principal Problem: CHB (complete heart block) ([facility]) Active Problems: HTN (hypertension) ST elevation myocardial infarction (STEMI) ([facility]) Coronary artery disease involving [place] coronary artery of [place] heart Mixed hyperlipidemia Cosigned by Janae Shaffer PT at 05/17/2024 3:34 PM EDT Associated attestation - Janae Shaffer PT - 05/17/2024 3:34 PM EDT I have reviewed and agree with this note and education documentation for this visit. Images from the original note were not included. [facility] INTER[facility] 6W ACUTE [address] [facility] [address] Hospital Medicine Progress Note Patient: Alie Briones Date of : 1960 Room: [place] [address] PCP: ROSITA Lance Admission date: 05/07/2024 3:54 [...] from the original result were not included. [facility] EEG REPORT EEG Service Date: 05/10/24 Date of Report: 05/10/24 History: Alie Briones is a 63 y.o. female with hallucinations and memory loss who is undergoing EEG to evaluate for seizures. Centrally active medications: Buspar, diphenydramine, lorazepam, morphine. Procedure: This EEG was acquired with electrodes placed according to the [id number] electrode placement system. The EEG was acquired [...] of intermittent seizures. Kat Marquez M.D., Ph.D. Unit Trust Manager [facility] Cardiac Invasive Result Date: 05/10/2024 Narrative: [...] aggressive medical management. Recommend follow-up with primary filling mixer outpatient. Echo limited W/O contrast Result Date: 05/08/2024 Narrative: Left Ventricle: Left ventricle appears normal in size. Systolic function is moderately to severely decreased with an ejection fraction of 30-35%. Aortic Valve: There is no regurgitation or stenosis. Mitral Valve: There is tynbg-de-otpe regurgitation. There is no evidence of mitral [...] LIST Principal Problem: CHB (complete heart block) ([facility]) Active Problems: HTN (hypertension) ST elevation myocardial infarction (STEMI) ([facility]) Coronary artery disease involving [place] coronary artery of [place] heart Mixed hyperlipidemia ASSESSMENT & PLAN Complete heart block in setting of STEMI with recurrent syncope, resolved, now with LAFB/RBBB Electrophysiology signed off, no plans for pacemaker at this time. Recommended discharging with outpatient 30 day MCOT to evaluate for any further episodes of high-degree heart block. Can follow-up with EP for primary prevention ICD/HOSPITAL CLEANER if EF remains less than 30% after [...] fitting. MARCIAL Casey 05/16/2024 12:37 PM [facility] 7AM-7PM & 7PM-7AM: EpicChat or page through On-Call Finder. MARCIAL Palacios 05/16/24 1242 I, Konrad Mix MD, personally performed the [...] from the original note were not included. [facility] 6W ACUTE [address] [facility] [address] Hospital Medicine Progress Note Patient: Alie Briones Date of : 1960 Room: [place] [address] PCP: ROSITA Lance Admission date: 05/07/2024 3:54 PM Encounter date: 05/15/24 Hospital Day: 9 SUBJECTIVE Chief complaints: No chief complaint on file. Interval History: Resting in bed, awaiting nursing home facility placement, remains medically ready for discharge [...] from the original result were not included. [facility] EEG REPORT EEG Service Date: 05/10/24 Date of Report: 05/10/24 History: Alie Briones is a 63 y.o. female with hallucinations and memory loss who is undergoing EEG to evaluate for seizures. Centrally active medications: Buspar, diphenydramine, lorazepam, morphine. Procedure: This EEG was acquired with electrodes placed according to the Mhxknvvsvvikx94-14 electrode placement system. The EEG was acquired [...] of intermittent seizures. Kat Marquez M.D., Ph.D. Unit Trust Manager [facility] Result Date: 05/10/2024 Narrative: [...] aggressive medical management. Recommend follow-up with primary filling mixer outpatient. Echo limited W/O contrast Result Date: 05/08/2024 Narrative: Left Ventricle: Left ventricle appears normal in size. Systolic function is moderately to severely decreased with an ejection fraction of 30-35%. Aortic Valve: There is no regurgitation or stenosis. Mitral Valve: There is [id number]-bl-cdcu regurgitation. There is no evidence of mitral [...] LIST Principal Problem: CHB (complete heart block) ([facility]) Active Problems: HTN (hypertension) ST elevation myocardial infarction (STEMI) ([facility]) Coronary artery disease involving [place] coronary artery of [place] heart Mixed hyperlipidemia ASSESSMENT & PLAN Complete heart block in setting of STEMI with recurrent syncope, resolved, now with LAFB/RBBB Electrophysiology signed off, no plans for pacemaker at this time. Recommended discharging with outpatient 30 day MCOT to evaluate for any further episodes of high-degree heart block. Can follow-up with EP for primary prevention ICD/HOSPITAL CLEANER if EF remains less than 30% after [...] MARCIAL Casey 05/15/2024 4:38 PM [facility] Medicine 7AM-7PM & 7PM-7AM: EpicChat or [...] Gait Base of Support: Narrow Pattern: Decreased lyedi Gait Assistance: Standby assist Assistive Device: None [...] wire placement on May 07, 2024 ST-elevation CT from April of 2024 status post cardiac [...] Results from last 7 days Lab Units 05/14/2440305/13/24 1254 05/13/24 0505/12/246 05/12/24 1307 05/12/24 0552 SODIUM mmol/L 135 [...] Results from last 7 days Lab Units 05/14/2440305/13/24 0505/12/24 0552 WBC X10E9/L 7.7 7.9 7.4 HEMOGLOBIN g/dL 12.3 11.8 11.9 HEMATOCRIT % 35.3 32.9* 33.8* PLATELETS X10E9/L 334 305 262 Results from last 7 days Lab Units 05/14/2440305/13/24 0505/12/24 1307 MAGNESIUM mg/dL 2.0 2.1 2.9* Lab Results Component Value Date CALCIUM 8.9 05/14/2024 Lab Results Component Value Date IRON 30 (L) 04/06/2024 TIBC 358 04/06/2024 FERRITIN 17 04/06/2024 Please contact me at [phone] (Office) or [phone] (Answering service) with any questions. Please feel free to contact me through Vicarious Secure chat during the daytime hours, if no response after 5 minutes then call the answering service. MASSIEL ATWOOD D.O. [facility] This note was created with the assistance of a speech-recognition program. Although the intention is to generate a document that actually reflects the content of the visit, no guarantees can be provided that every mistake has been identified and corrected by editing. Physical Therapy Treatment Discharge Recommendations PT Recommendations: Jail Facility Therapy Plan 6 Clicks: Basic Mobility [...] okay to see per RN Pacemaker/ICD: Pacemaker Telemetry/Embossing Tool Setter: Yes Other Cardiac Monitoring Devices: Cardiac Life [...] on 05/14/24 0946 by Hannah Sue, Student MOTOR VEHICLE ESCORT DRIVER Evaluation of progress towards goal: Problem: Bed Mobility Dates: Start: 05/11/24 Disciplines: PT Goal: Patient will perform bed mobility with Modified Lyman Dates: Start: 05/11/24 Expected End: 05/31/24 Description: Goal Description: with proper BUE placement and sequencing Disciplines: PT Outcomes Date/Time User Outcome 05/13/24 1259 Ivanna Murray, MOTOR VEHICLE ESCORT DRIVER Progressing Goal Note filed on 05/14/24 0946 by Hannah Sue, Student MOTOR VEHICLE ESCORT DRIVER Evaluation of progress towards goal: Problem: Gait Dates: Start: 05/11/24 Disciplines: PT Goal: Patient will perform gait with Modified Lyman Dates: Start: 05/11/24 Expected End: 05/31/24 Description: With__RW__,__100__feet Goal Description: with proper gait pattern and safety awareness Disciplines: PT Outcomes Date/Time User Outcome 05/13/24 1259 Ivanna Murray, MOTOR VEHICLE ESCORT DRIVER Progressing Goal Note filed on 05/14/2446 by Hannah Sue, Student MOTOR VEHICLE ESCORT DRIVER Evaluation of progress towards goal: Problem: Stairs/Curb Dates: Start: 05/11/24 Disciplines: PT Goal: Patient will perform stairs/curb with Modified Lyman Dates: Start: 05/11/24 Expected End: 05/31/24 Description: __3___steps,__w/o___hand rails Goal Description: for safer entry into home Disciplines: PT Goal Note filed on 05/14/24 0946 by Hannah Sue, Student MOTOR VEHICLE ESCORT DRIVER Evaluation of progress towards goal: Problem: Standing Balance Dates: Start: 05/11/24 Disciplines: PT Goal: Improve balance to normal Dates: Start: 05/11/24 Expected End: 05/31/24 Description: Static/Dynamic to reduce risk of falls with all functional tasks Disciplines: PT Outcomes Date/Time User Outcome 05/14/24945 Hannah Sue, Student MOTOR VEHICLE ESCORT DRIVER Progressing 05/13/24 125Les Murray MOTOR VEHICLE ESCORT DRIVER Progressing Goal Note filed on 05/14/24 0946 by Hannah Sue, Student MOTOR VEHICLE ESCORT DRIVER Evaluation of progress towards goal: Problem: Strength Dates: Start: 05/11/24 Disciplines: PT Goal: Improve strength Dates: Start: 05/11/24 Expected End: 05/31/24 Description: Of extremity/ location: BLE strength to WFL To facilitate: Safer functional mobility tasks Disciplines: PT Outcomes Date/Time User Outcome 05/14/24945 Hannah Sue, Student MOTOR VEHICLE ESCORT DRIVER Progressing 05/13/24 125Les Murray MOTOR VEHICLE ESCORT DRIVER Progressing Goal Note filed on 05/14/24 0946 by Hannah Sue, Student MOTOR VEHICLE ESCORT DRIVER Evaluation of progress towards goal: Problem: Transfers Dates: Start: 05/11/24 Disciplines: PT Goal: Patient will perform transfers with Modified Lyman Dates: Start: 05/11/24 Expected End: 05/31/24 Description: Goal Description: with proper BUE placement and sequencing Disciplines: PT Outcomes Date/Time User Outcome 05/13/24 1259 Ivanna Murray MOTOR VEHICLE ESCORT DRIVER Progressing Goal Note filed on 05/14/2446 by Hannah Sue, Student MOTOR VEHICLE ESCORT DRIVER Evaluation of progress towards goal: Physical Therapy Care Plan (Resolved) There are no resolved problems. Principal Problem: CHB (complete heart block) ([facility]) Active Problems: HTN (hypertension) ST elevation myocardial infarction (STEMI) ([facility]) Coronary artery disease involving keweenaw coronary artery of keweenaw heart Mixed hyperlipidemia Cosigned by Janae Shaffer PT at 05/15/2024 11:14 AM EDT Associated attestation - Janae Shaffer, PT - 05/15/2024 11:14 AM EDT I have reviewed and agree with this note and education documentation for this visit. Images from the original note were not included. [facility] INTERNAL MEDICINE [address] [facility] [address] Hospital Medicine Progress Note Patient: Alie Briones Date of : 1960 Room: [place] [address] PCP: ROSITA Lance Admission date: 05/07/2024 3:54 PM Encounter date: 05/14/24 Hospital Day: 8 SUBJECTIVE Chief complaints: No chief complaint on file. Interval History: Resting in bed, awaiting nursing home facility placement, medically ready for discharge at [...] from the original result were not included. [facility] EEG REPORT EEG Service Date: 05/10/24 Date of Report: 05/10/24 History: Alie Briones is a 63 y.o. female with hallucinations and memory loss who is undergoing EEG to evaluate for seizures. Centrally active medications: Buspar, diphenydramine, lorazepam, morphine. Procedure: This EEG was acquired with electrodes placed according to the Pleiepwyjlckp33-81 electrode placement system. The EEG was acquired [...] of intermittent seizures. Kat Marquez M.D., Ph.D. Unit Trust Manager [facility] Cardiac Invasive Result Date: 05/10/2024 Narrative: [...] aggressive medical management. Recommend follow-up with primary filling mixer outpatient. Echo limited W/O contrast Result Date: 05/08/2024 Narrative: Left Ventricle: Left ventricle appears normal in size. Systolic function is moderately to severely decreased with an ejection fraction of 30-35%. Aortic Valve: There is no regurgitation or stenosis. Mitral Valve: There is [id number]-to-[id number] regurgitation. There is no evidence of mitral [...] LIST Principal Problem: CHB (complete heart block) ([facility]) Active Problems: HTN (hypertension) ST elevation myocardial infarction (STEMI) ([facility]) Coronary artery disease involving ke[place] coronary artery of keween[place] heart Mixed hyperlipidemia ASSESSMENT & PLAN Complete heart block in setting of STEMI with recurrent syncope, resolved, now with LAFB/RBBB Electrophysiology signed off, no plans for pacemaker at this time. Recommended discharging with outpatient 30 day MCOT to evaluate for any further episodes of high-degree heart block. Can follow-up with EP for primary prevention ICD/HOSPITAL CLEANER if EF remains less than 30% after [...] vest fitting. MARCIAL Casey 05/14/2024 12:35 PM [facility] Internal Medicine 7AM-7PM & 7PM-7AM: EpicChat or page through On-Call Finder. MARCIAL Palacios 05/14/24 1237 I, Konrad Mix MD, personally performed the face to face diagnostic evaluation on this patient. I have reviewed the LOBITO's History, Exam, and MDM and agree with the assessment and plan as written. Images from the original note were not included. [facility] INTERNAL MEDICINE [facility] [address] AC[address] [facility] [address] Hospital Medicine Progress Note Patient: Alie Briones Date of : 1960 Room: [place] [address] PCP: ROSITA Lance Admission date: 05/07/2024 3:54 [...] Intake/Output Summary (Last 24 hours) at 05/13/2024 8212 Last data filed at 05/13/2024 1300 Gross [...] from the original result were not included. [facility] EEG REPORT EEG Service Date: 05/10/24 Date of Report: 05/10/24 History: Alie Briones is a 63 y.o. female with hallucinations and memory loss who is undergoing EEG to evaluate for seizures. Centrally active medications: Buspar, diphenydramine, lorazepam, morphine. Procedure: This EEG was acquired with electrodes placed according to the [id number] electrode placement system. The EEG was acquired [...] of intermittent seizures. Kat Marquez M.D., Ph.D. Unit Trust Manager [facility] Cardiac Invasive Result Date: 05/10/2024 Narrative: [...] aggressive medical management. Recommend follow-up with primary filling mixer outpatient. Echo limited W/O contrast Result Date: 05/08/2024 Narrative: Left Ventricle: Left ventricle appears normal in size. Systolic function is moderately to severely decreased with an ejection fraction of 30-35%. Aortic Valve: There is no regurgitation or stenosis. Mitral Valve: There is zenoh-dz-ojpo regurgitation. There is no evidence of mitral [...] LIST Principal Problem: CHB (complete heart block) ([facility]) Active Problems: HTN (hypertension) ST elevation myocardial infarction (STEMI) ([facility]) Coronary artery disease involving ke[place] coronary artery of ke[place] heart Mixed hyperlipidemia ASSESSMENT & PLAN Complete heart block in setting of STEMI with recurrent syncope, resolved, now with LAFB/RBBB Electrophysiology signed off, no plans for pacemaker at this time. Recommended discharging with outpatient 30 day MCOT to evaluate for any further episodes of high-degree heart block. Can follow-up with EP for primary prevention ICD/HOSPITAL CLEANER if EF remains less than 30% after [...] cleared after life vest fitting. MARCIAL Casey 05/13/2024 5:54 PM [facility] Internal Medicine 7AM-7PM & 7PM-7AM: EpicChat or page through On-Call Finder. MARCIAL Palacios 05/13/24 6243 I, Konrad Mix MD, personally performed the face to face diagnostic evaluation on this patient. I have reviewed the LOBITO's History, Exam, and MDM and agree with the assessment and plan as written. NEPHROLOGY PROGRESS NOTE Assessment Hypovolemic hyponatremia: Sodium level continues to improve. Continue fluid restriction. Hypertension: Blood pressure is adequately controlled.. Complete heart block status post temporary pacing wire placement ST-elevation CT status post stenting to the LAD on [...] wire placement on May 07, 2024 ST-elevation CT from April of 2024 status post cardiac [...] from last 7 days Lab Units 05/13/2452605/12/24 2126 05/12/24 1307 05/12/24 0552 05/11/24 1249 05/11/24 [...] from last 7 days Lab Units 05/13/24 0505/12/24 0552 05/11/24 0557 WBC X10E9/L 7.9 7.4 [...] FERRITIN 17 04/06/2024 Please contact me at [phone] (Office) or [phone] (Answering service) with any questions. Please feel free to contact me through Vicarious Secure chat during the daytime hours, if no response after 5 minutes then call the answering service. MARCIAL Ryan [facility] This note was created with the assistance of a speech-recognition program. Although the intention is to generate a document that actually reflects the content of the visit, no guarantees can be provided that every mistake has been identified and corrected by editing. MARCIAL Mensah 05/13/24 1317 Cardiac Rehab Discharge Recommendations Post Discharge Therapy Recommendations: Outpatient Cardiac Rehabilitation ([facility]) Therapy Plan Patient Response to Treatment: Progressing [...] days Admission Diagnosis: CHB (complete heart block) ([facility]) [I44.2] Acute electrocardiogram changes [R94.31] ST elevation CT (STEMI) ([facility]) [I21.3] Reviewing patient due to her recent transfer out from Intensive Care. Recorded vital signs are stable and the patient is not noted to be in any apparent distress. Telemetry and monitoring noted. Staff may call with any issues or concerns regarding her clinical presentation or stability. Thank you, Kameron Brown RN Rapid Response: [facility] Images from the original note were not included. [facility] INTERNAL MEDICINE [facility] [address] [facility] [address] Hospital Medicine Progress Note Patient: Alie Briones Date of : 1960 Room: [place] [address] PCP: ROSITA Lance Admission date: 05/07/2024 3:54 [...] from the original result were not included. [facility] EEG REPORT EEG Service Date: 05/10/24 Date of Report: 05/10/24 History: Alie Briones is a 63 y.o. female with hallucinations and memory loss who is undergoing EEG to evaluate for seizures. Centrally active medications: Buspar, diphenydramine, lorazepam, morphine. Procedure: This EEG was acquired with electrodes placed according to the Zwidrdmmgawyz28-84 electrode placement system. The EEG was acquired [...] of intermittent seizures. Kat Marquez M.D., Ph.D. Unit Trust Manager [facility] Cardiac Invasive Result Date: 05/10/2024 Narrative: [...] aggressive medical management. Recommend follow-up with primary filling mixer outpatient. Echo limited W/O contrast Result Date: 05/08/2024 Narrative: Left Ventricle: Left ventricle appears normal in size. Systolic function is moderately to severely decreased with an ejection fraction of 30-35%. Aortic Valve: There is no regurgitation or stenosis. Mitral Valve: There is vuwxy-ek-zsoa regurgitation. There is no evidence of mitral [...] LIST Principal Problem: CHB (complete heart block) ([facility]) Active Problems: HTN (hypertension) ST elevation myocardial infarction (STEMI) ([facility]) Coronary artery disease involving ke[place] coronary artery of ke[place] heart Mixed hyperlipidemia ASSESSMENT & PLAN Complete heart block in setting of STEMI with recurrent syncope, resolved, now with LAFB/RBBB Electrophysiology signed off, no plans for pacemaker at this time. Recommended discharging with outpatient 30 day MCOT to evaluate for any further episodes of high-degree heart block. Can follow-up with EP for primary prevention ICD/HOSPITAL CLEANER if EF remains less than 30% after [...] vest fitting. MARCIAL CUELLAR 05/12/2024 1:52 PM [facility] Internal Medicine 7AM-7PM & 7PM-7AM: EpicChat or page through On-Call Finder. MARCIAL Cuellar 05/12/24 8229 I have seen and evaluated the patient, [...] status post temporary pacing wire placement ST-elevation CT status post stenting to the LAD on [...] wire placement on May 07, 2024 ST-elevation CT from April of 2024 status post cardiac [...] 111/74 105/63 Pulse: 82 81 74 Resp: 16 24 15 Temp: 36.4 C (97.6 F) 36.7 C (98 F) 36.5 C (97.7 F) TempSrc: Oral Oral Oral SpO2: 95% 94% 96% Weight: 45.4 kg (100 lb 1.4 oz) Height: Intake/Output: Intake/Output Summary (Last 24 hours) at 05/12/2024 0726 Last data filed at 05/12/2024 0529 Gross [...] 04/06/2024 Brandt Quezada CNP [facility] Thank you for your consultation and allowing us to participate in the care of Alie Briones and please do not hesitate to call us with any questions at: Office: [phone] Office Answering Service: [phone] This note was created with the assistance of a speech-recognition program. Although the intention is to generate a document that actually reflects the content of the visit, no guarantees can be provided that every mistake has been identified and corrected by editing. MARCIAL Croft 05/12/24 0727 Images from the original note were not included. [facility] CARDIOLOGY ACADEMIC SERVICE PROGRESS NOTE Alie Briones SUBJECTIVE Subjective History of Present Illness: Alie Briones is a 63 y.o. female with a past medical history of hypertension, HLD, osteoarthritis of cervical spine, and cervical spondylosis without myelopathy, who presented to [place] ED for a fall. Per the patient she had crushing chest pain this morning which she rates an 8/10. She said after the pressure she started getting light headed, dizzy, and fell but never lost consciousness. The patient reports having the chest pain for several days. In the [place] ED the patient was afebrile, HR 80, RR 18, and BP 103/55. No labs were drawn. EKG showed concerns for heart block and left and right bundle branch blocks. CT brain and CT cervical spine showed no acute intracranial findings. CXR and hip xray showed no acute findings. Cardiology was consulted and patient was transferred to [facility]. Once the patient arrived at [facility] repeat EKG showed anterior lead ST segment elevations. Patient kept cycling back and forth between heart block and sinus tachycardia. On echo, patient was having apical wall motion abnormalities. Patient was urgently taken to electronic lab technician. Interval Hx: 05/12/24: No acute overnight [...] completed shifts: In: 778 [P.O.:778] Out: 2775 [Urine:7935] Weight change: -2.3 kg (-5 lb 1.1 [...] MD Internal Medicine, PGY-1 05/12/2024 10:10 AM [facility] TEACHING SERVICE This note was completed using a voice fire equipment inspector helper system. Every effort was made to ensure accuracy. However, inadvertent computerized fire equipment inspector helper errors may be present. Cosigned by Karlo Infante MD at 05/12/2024 11:02 AM EDT Associated attestation - Karlo Infante MD - 05/12/2024 11:02 AM EDT Images from the original note were not included. [facility] C[facility] I have personally performed a [...] with assessment and plan as detailed above. KARLO INFANTE MD This note was completed using a voice fire equipment inspector helper system. Every effort was made to ensure accuracy. However, inadvertent computerized fire equipment inspector helper errors may be present. Images from the original note were not included. FOLLOW-UP: Post-Intensive Care Rounding Note Patient: Alie Briones : 1960 Age: 63 y.o. Length of Stay: 5 days Admission Diagnosis: CHB (complete heart block) ([facility]) [I44.2] Acute electrocardiogram changes [R94.31] ST elevation CT (STEMI) ([facility]) [I21.3] Reviewing patient due to her recent transfer out from Intensive Care. Recorded vital signs are stable and the patient is not noted to be in any apparent distress. Telemetry and monitoring noted. Staff may call with any issues or concerns regarding her clinical presentation or stability. Thank you, José Rivera Jr, RN Rapid Response: [facility] Images from the original note were not included. FOLLOW-UP: Post-Intensive Care Rounding Note Patient: Alie Briones : 1960 Age: 63 y.o. Length of Stay: 4 days Admission Diagnosis: CHB (complete heart block) ([facility]) [I44.2] Acute electrocardiogram changes [R94.31] ST elevation CT (STEMI) ([facility]) [I21.3] Reviewing patient due to her recent transfer out from Intensive Care. Recorded vital signs are stable and the patient is not noted to be in any apparent distress. Telemetry and monitoring noted. Staff may call with any issues or concerns regarding her clinical presentation or stability. Thank you, Kameron Brown RN Rapid Response: [facility] Images from the original note were not included. [facility] CARDIOLOG[facility] ACADEMIC SERVICE PROGRESS NOTE Alie Briones SUBJECTIVE Subjective History of Present Illness: Alie Briones is a 63 y.o. female with a past medical history of hypertension, HLD, osteoarthritis of cervical spine, and cervical spondylosis without myelopathy, who presented to [place] ED for a fall. Per the patient she had crushing chest pain this morning which she rates an 8/10. She said after the pressure she started getting light headed, dizzy, and fell but never lost consciousness. The patient reports having the chest pain for several days. In the [place] ED the patient was afebrile, HR 80, RR 18, and BP 103/55. No labs were drawn. EKG showed concerns for heart block and left and right bundle branch blocks. CT brain and CT cervical spine showed no acute intracranial findings. CXR and hip xray showed no acute findings. Cardiology was consulted and patient was transferred to [facility]. Once the patient arrived at [facility] repeat EKG showed anterior lead ST segment elevations. Patient kept cycling back and forth between heart block and sinus tachycardia. On echo, patient was having apical wall motion abnormalities. Patient was urgently taken to electronic lab technician. Interval Hx: 05/11/24: patient is seen [...] from the original result were not included. [facility] EEG REPORT EEG Service Date: 05/10/24 Date of Report: 05/10/24 History: Alie Briones is a 63 y.o. female with hallucinations and memory loss who is undergoing EEG to evaluate for seizures. Centrally active medications: Buspar, diphenydramine, lorazepam, morphine. Procedure: This EEG was acquired with electrodes placed according to the Jrkcnsdmcvipv51-50 electrode placement system. The EEG was acquired [...] of intermittent seizures. Kat Marquez M.D., Ph.D. Unit Trust Manager [facility] PHYSICAL EXAM Admission Weight: Weight: 47.1 [...] Last 3 Weight Readings 05/09/24 0500 05/10/24 0431 05/11/24 0456 Weight: 45.1 kg (99 lb 6.8 oz) 47.8 kg (105 lb 6.1 oz) 47.7 kg (105 lb 2.6 oz) Body mass index is 20.54 kg/m . INTAKE/OUTPUT I/O last 3 completed shifts: In: - Out: 1800 [Urine:1800] Intake/Output Summary (Last 24 hours) at 05/11/2024 0813 Last data filed at 05/11/2024 0456 Gross [...] MD Internal Medicine, PGY-1 05/11/2024 8:13 AM [facility] C[facility] TEACHING SERVICE This note was completed using a voice fire equipment inspector helper system. Every effort was made to ensure accuracy. However, inadvertent computerized fire equipment inspector helper errors may be present. Cosigned by Karlo Infante MD at 05/11/2024 11:53 AM EDT Associated attestation - Karlo Infante MD - 05/11/2024 11:53 AM EDT Images from the original note were not included. [facility] CARDI[facility] I have personally performed a [...] last 7 days Lab Units 05/11/24 0557 05/10/24203605/10/24 1101 05/10/24 0829 05/10/24 0303 05/09/24 0601 [...] with assessment and plan as detailed above. KARLO INFANTE MD This note was completed using a voice fire equipment inspector helper system. Every effort was made to ensure accuracy. However, inadvertent computerized fire equipment inspector helper errors may be present. Images from the original note were not included. Nephrology Daily Progress Note Assessment Hypovolemic hyponatremia: Received IV LR now discontinued. Now continues on fluid restriction 1.5 L Hypotension: Resolved. Complete heart block status post temporary pacing wire placement ST-elevation CT status post stenting to the LAD on [...] wire placement on May 07, 2024 ST-elevation CT from April of 2024 status post cardiac [...] 04/06/2024 Brandt Quezada CNP [facility] Thank you for your consultation and allowing us to participate in the care of Alie Briones and please do not hesitate to call us with any questions at: Office: [phone] Office Answering Service: [phone] This note was created with the assistance [...] 132/68 Pulse: 91 85 79 79 Resp: 21 18 21 19 Temp: TempSrc: SpO2: (!) 87% 91% 93% 90% Weight: Height: INTAKE/OUTPUT: Intake/Output Summary (Last 24 hours) at 05/10/2024 1359 Last data filed at 05/10/2024 1200 Gross per 24 hour Intake 2023.86 ml Output 850 ml Net 1173.86 ml [...] 0601 05/09/24 0300 05/08/24 1158 05/08/24 0520 03/25/25 2050 SODIUM mmol/L 129* 130* 130* 131* [...] Results from last 7 days Lab Units 05/10/2430205/09/2429905/08/24 0520 05/07/242049 TOTAL PROTEIN g/dL 5.3* 5.2* 5.8* 6.3 ALBUMIN g/dL 3.0* 3.0* 3.3 3.6 AST U/L 40 44* 110* 124* ALT U/L 23 15 25 31 TOTAL BILIRUBIN mg/dL 0.8 0.8 1.0 0.8 ALK PHOS U/L 102 52 59 63 Results from last 7 days Lab Units 05/10/2430205/09/2429905/08/24 0330 05/07/24 1608 WBC X10E9/L 6.9 7.1 10.0 17.7* HEMOGLOBIN g/dL 10.1* 10.1* 12.0 13.3 HEMATOCRIT % 28.1* 28.6* 34.0* 37.8 PLATELETS X10E9/L 170 138* ESTIMATE OF PLATELETS, NORMAL 270 Lab Results Component Value Date IRON 30 (L) 04/06/2024 TIBC 358 04/06/2024 FERRITIN 17 04/06/2024 IRONSAT 8 (L) 04/06/2024 Results from last 7 days Lab Units 05/10/24 0303 05/09/24 0300 05/08/24 0520 05/07/24204905/07/24 1609 BEDSIDE GLUCOSE mg/dL -- [...] wire placement on May 07, 20[address] ST-[address] from April of 2024 status post cardiac [...] post temporary pacing wire placement 4. ST-elevation CT status post stenting to the LAD on [...] For questions please call: Answering Service at [phone] Or Office at [phone] This note was created with the assistance of a speech-recognition program. Although the intention is to generate a document that actually reflects the content of the visit, no guarantees can be provided that every mistake has been identified and corrected by editing. Images from the original note were not included. [facility] ACADEMIC SERVICE PROGRESS NOTE Alie Briones SUBJECTIVE Subjective History of Present Illness: Alie Briones is a 63 y.o. female with a past medical history of hypertension, HLD, osteoarthritis of cervical spine, and cervical spondylosis without myelopathy, who presented to [place] ED for a fall. Per the patient she had crushing chest pain this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
[2024-11-25 09:17] VITALS: BP 101/61; PULSE 66; TEMP 36.4; O2SAT 96
[2024-11-25 09:46] VITALS: BP 82/49; BP 86/51; PULSE 80; PULSE 82; O2SAT 100; O2SAT 98
[2024-11-25] MEDS: DEXAMETHASONE SOD PHOS 10 MG/ML VIAL INJ (09:50)
[2024-11-25] MEDS: LIDOCAINE HCL 2% 400 MG/20 ML MDV 8 ML INJ (09:50)
[2024-11-25] MEDS: BUPIVACAINE HCL 0.25% PF 25 MG/10 ML VIAL 2 ML INJ (09:50)
--- NOTE | 2024-11-25 10:03 | P.ON_ITS ---
Date of procedure: 11/25/24 Pre-op diagnosis: Pain due to cervical spondylosis without myelopathy Post-op diagnosis: same as pre-op Procedure: Procedure: Right C5-6, 6-7 radiofrequency ablation Medications: Bupivacaine 0.25% 2cc, dexamethasone 10mg, lidocaine 2% 5cc The patient was seen and examined in the preoperative holding area.? The site was marked.? Written informed consent was obtained and placed on the chart.? The patient was brought to the medical procedure unit and placed in the prone position.? A timeout was completed verifying correct patient, procedure, positioning, and special requirements.? The skin overlying the target points, the designated medial branch, was prepped and draped in the usual sterile fashion.? The target point was achieved with a 20-gauge 15 cm with a 10 mm curved active tip radiofrequency cannula under direct fluoroscopic visualization .? The needle was inserted at level C5 on the right side. Needle tip position was confirmed with lateral fluoroscopic position.? Motor stimulation was carried out at 2 Hz up to 5 volts with the absence of extremity activity.? This was repeated at level C6, 7 on right side.?? Sensory stimulation was carried out.? Concordant pain was realized at the above- mentioned sites.? Then radiofrequency lesioning was carried out times 90 seconds at 80 degrees times 2 lesions at each level.? The radiofrequency probe was removed prior to cannula removal.? The above-mentioned injectate was placed in 1 mL increments.? The needle was removed.? Insertion sites were covered.? The patient was taken to the postoperative recovery area and monitored for an appropriate length of time before being found suitable for discharge in the company of a responsible adult. Anesthesia: Local Surgeon: Alexander Mayers Pathology: none sent Condition: stable Disposition: no change
== END 2024-11-25 10:07 | disposition home or self-care (01) ==
PROVIDERS: Visit Provider Anesthesiology
DX: M47.812 Spondylosis without myelopathy or radiculopathy, cervical region (principal); M54.2 Cervicalgia
CPT/HCPCS: 64633; 64634; J0665; J1100

== ENCOUNTER 2024-12-26 13:10 | Outpatient (OUT) | payer MEDICARE, MEDICAID, SELFPAY ==
--- OUTSIDE RECORDS SUMMARY | 2024-09-09 10:00 | XMS_ITS ---
Author Organization [facility] vices Address [address] [place], [place] [id number] Care Team Providers Care Clinical Applications Manager Name Role Phone CayetanoRenny bradleysha Primary Care Provider [phone] REASON FOR VISIT Discuss KANG testing results Social History Sex Assigned At : Social History Observation Description Sex Assigned At Female Encounters Encounter Location Date Provider Diagnosis Main [address] [place] [id number] 09/09/2024 Mere Monteiro Plan Of Treatment Next Appt Details Provider Name:Mere Monteiro, 12/26/2024 02:30:00 PM, [address] [place], [id number], Provider Name:Mere Monteiro, 02/04/2025 01:15:00 PM, [address] [place], [id number], Progress Notes * Alei AJ LDOB: 1960 (64 yo F)Acc No.[id number]:09/09/2024 Medical Note Patient: Shira GUILLERMOAlie HARRIS :?Mere Monteiro MDDOB:1960???Age:63 Y???Sex: FemaleDate:09/09/2024Phone:[phone]:[address] [facility], [address], [place], [id number] Subjective: * Chief Complaints: * 1 . Discuss KANG testing results. * Medical History: Objective: * Vitals: Assessment: Plan: * Treatment: * Billing Information: * Visit Code: * Procedure Codes: * Electronic signature of Mere Monteiro MD on 12/26/2024 at 01:14 PM ESTSign off status: Pending * Provider: Danny Monteiro MD Date: 0 09/09/2024 Generated for Printing/Faxing/eTransmitting on:?12/26/2024 01:14 PM EST
--- OUTSIDE RECORDS SUMMARY | 2024-09-16 08:30 | XMS_ITS ---
Author Organization Formerly [facility] vices Address [address] [place], [place] [id number] Care Team Providers Care Classified Advertising Supervisor Name Role Phone CayetanoRenny bradleysha Primary Care Provider REASON FOR VISIT Discuss KANG testing results Social History Sex Assigned At : Social History Observation Description Sex Assigned At Female Encounters Encounter Location Date Provider Diagnosis Main [address] [place] [id number] 09/16/2024 Mere Monteiro Plan Of Treatment Next Appt Details Provider Name:Mere Monteiro, 12/26/2024 02:30:00 PM, [address], [id number], Provider Name:Mere Monteiro, 02/04/2025 01:15:00 PM, [address] [place], [id number], Progress Notes * Alie AJ LDOB: 1960 (64 yo F)Acc No.[id number]:09/16/2024 Medical Note Patient: Shira GUILLERMOAlie HARRIS :?Mere Monteiro MDDOB:1960???Age:63 Y???Sex: FemaleDate:09/16/2024Phone:[phone]:[address] [facility], [address], [place], [id number] Subjective: * Chief Complaints: * 1 . Discuss KANG testing results. * Medical History: Objective: * Vitals: Assessment: Plan: * Treatment: * Billing Information: * Visit Code: * Procedure Codes: * Electronic signature of Mere Monteiro MD on 12/26/2024 at 01:14 PM ESTSign off status: Pending * Provider: Danny Monteiro MD Date: 0 09/16/2024 Generated for Printing/Faxing/eTransmitting on:?12/26/2024 01:14 PM EST
--- OUTSIDE RECORDS SUMMARY | 2024-10-03 08:15 | XMS_ITS ---
Author Organization [facility] vices Address [address] [place], [place] [id number] Care Team Providers Care Engraver Set Up Operator Name Role Phone Cayetano, Mere Primary Care Provider REASON FOR VISIT memory results and depression Social History Sex Assigned At : Social History Observation Description Sex Assigned At Female Encounters Encounter Location Date Provider Diagnosis Main [address] [place] [id number] 10/03/2024 Mere Monteiro Plan Of Treatment Next Appt Details Provider Name:Mere Monteiro, 12/26/2024 02:30:00 PM, [address], [id number], Provider Name:Mere Monteiro, 02/04/2025 01:15:00 PM, [address], [id number], Progress Notes * Alie AJ LDOB: 1960 (64 yo F)Acc No.[id number]:10/03/2024 Medical Note Patient: Shira GUILLERMOAlie HARRIS :?Mere Monteiro MDDOB:1960???Age:64 Y???Sex: FemaleDate:10/03/2024Phone:[phone]:[address], [address], [place], [id number] Subjective: * Chief Complaints: * 1 . Memory results and depression. * Medical History: Objective: * Vitals: Assessment: Plan: * Treatment: * Billing Information: * Visit Code: * Procedure Codes: * Electronic signature of Mere Monteiro MD on 12/26/2024 at 01:15 PM ESTSign off status: Pending * Provider: Danny Monteiro MD Date: 0 10/03/2024 Generated for Printing/Faxing/eTransmitting on:?12/26/2024 01:15 PM EST
--- OUTSIDE RECORDS SUMMARY | 2024-11-20 09:00 | XMS_ITS ---
Author Organization [facility] Address [address] [place], [place] [id number] Care Team Providers Care Wrapper Hands Sprayer Name Role Phone Renny Monteirosha Primary Care Provider [phone] REASON FOR VISIT Wellness Social History Sex Assigned At : Social History Observation Description Sex Assigned At Female Encounters Encounter Location Date Provider Diagnosis Main [address] [place] [id number] 11/20/2024 Mere Monteiro Plan Of Treatment Next Appt Details Provider Name:Mere Monteiro, 12/26/2024 02:30:00 PM, [address] [place], [id number], Provider Name:Mere Monteiro, 02/04/2025 01:15:00 PM, [address] [place], [id number], Progress Notes * Alie AJ LDOB: 1960 (64 yo F)Acc No.[id number]:11/20/2024 Progress Notes Patient: Shira GUILLERMOAlie HARRIS :?Mere Monteiro, MDDOB:1960???Age:64 Y???Sex: FemaleDate:11/20/2024Phone:[phone]:[address] [facility], [address], [place], [id number] Subjective: * Chief Complaints: * 1 . Wellness. * Medical History: Objective: * Vitals: Assessment: Plan: * Treatment: Care Plan: * Problems: * Billing Information: * Visit Code: * Procedure Codes: * Electronic signature of Mere Monteiro MD on 12/26/2024 at 01:15 PM ESTSign off status: Pending * Provider: Danny Monteiro MD Date: 1 Generated for Printing/Faxing/eTransmitting on:?12/26/2024 01:15 PM EST
--- OUTSIDE RECORDS SUMMARY | 2024-12-24 14:00 | XMS_ITS | Encounter Summary ---
Author Organization [facility] Address [id number] [address] [place] [address] Care Team Providers Care Belt Notcher Name Role Phone Services, [facility] Primary Care Provider Reason for Visit * Cardiology (Routine) - ClosedSpecialtyDiagnoses / ProceduresReferred By ContactReferred To Contact Diagnoses Ischemic cardiomyopathy Procedures Echo limited W/ contrast Echo limited W/O contrast Julianna Hdez MD [address] [place] [address] Phone: tel: fax: Referral IDStatusReasonStart DateExpiration DateVisits RequestedVisits [id number]/25/20258/ Encounter Details DateTypeDepartmentCare Team (Latest Contact Info)Vfygiqnjdbi99/11/2025 2:00 PM EST - 12/24/2024 11:59 PM ESTHospital Encounter [facility] [address] [place] [id number] Julianna Hdez MD [address] [place], [place] [id number] Ischemic cardiomyopathy Discharge Disposition: Home Social History Tobacco UseTypesPacks/DayYears UsedDateSmoking Tobacco: Every DayCigarettes Smokeless Tobacco: Never Comments:Patient states she drinks a lot. Alcohol UseStandard Drinks/WeekCommentsYes0 (1 standard drink = 0.6 oz pure alcohol)[facility] UtilitiesAnswerDate RecordedIn the past 12 months has the electric, gas, oil, or water company threatened to shut off services in your home?Patient unable to dmsvfb6810/12/2024UDIT-CAnswerDate RecordedFrequency of Alcohol YeuicdxbtvvBczpd55/09/2018Average Number of DrinksNot on file11/21/2017Frequency of Binge DrinkingNot on file11/21/2017PHQ-2AnswerDate RecordedTotal Score3 2PRAPARE - TransportationAnswerDate RecordedIn the past 12 months, has lack of transportation kept you from medical appointments or from getting medications?Patient unable to krlbns5810/12/2024In the past 12 months, has lack of transportation kept you from meetings, work, or from getting things needed for daily living?Patient unable to axqdye6710/12/2024Housing InstabilityAnswerDate RecordedAre you worried or concerned that in the next two months you may not have stable housing that you own, rent or stay in as a part of a household? Patient unable to qcbbxc2210/12/2024hildcareAnswerDate RecordedChildcareUnknown 07/20/2018EmploymentAnswerDate BhidncbtNsheenfklbNbyoxra39/07/2019Hunger ScreeningAnswerDate RecordedWithin the past 12 months we worried whether our food would run out before we got money to buy more.Never True10/15/2024Within the past 12 months the food we bought just didn't last and we didn't have money to get more.Never True10/15/2024Purpose - LifeAnswerDate RecordedPurpose and direction in vnmyNsaarup51/19/2021CommentsNoSex and Gender Information ValueDate RecordedSex Assigned at BirthNot on fileLegal MhpAdcmbb35/04/2015 9:44 PM EDTGender IdentityNot on fileSexual OrientationNot on filedocumented as of this encounter Medications at Time of Discharge MedicationSigDispense QuantityRefillsLast FilledStart DateEnd Date atorvastatin (LIPITOR) 80 mg tablet Take 1 tablet (80 mg total) by mouth nightly. 90 tablet busPIRone (BUSPAR) 10 mg tablet Take 1 tablet (10 mg total) by mouth in the morning and 1 tablet (10 mg total) before bedtime.05/18/2024 clopidogreL (PLAVIX) 75 mg tablet Take 1 tablet (75 mg total) by mouth in the morning. 30 tablet cyclobenzaprine (FLEXERIL) 10 mg tablet Take 1 tablet (10 mg total) by mouth once daily at bedtime.09/18/2024 dapagliflozin propanediol (FARXIGA) 10 mg tablet Take 1 tablet (10 mg total) by mouth in the morning for 360 days. 90 tablet / folic acid (FOLVITE) 1 mg tablet Take 1 tablet (1 mg total) by mouth in the morning.05/18/2024 gabapentin (NEURONTIN) 300 mg capsule Take 1 capsule (300 mg total) by mouth in the morning and 1 capsule (300 mg total) at noon and 1 capsule (300 mg total) in the evening and 1 capsule (300 mg total) before bedtime. metoprolol succinate XL (TOPROL XL) 25 mg 24 hr tablet Take 0.5 tablets (12.5 mg total) by mouth in the morning.10/26/2024 pantoprazole (PROTONIX) 40 mg EC tablet Take 1 tablet (40 mg total) by mouth in the morning.10/25/2024 spironolactone (ALDACTONE) 25 mg tablet Take 1 tablet (25 mg total) by mouth in the morning. 90 tablet sucralfate (CARAFATE) 1 gram tablet Take 1 tablet (1 g total) by mouth 4 (four) times a day before meals and nightly.10/25/2024 valsartan (DIOVAN) 40 mg tablet Take 1 tablet (40 mg total) by mouth in the morning and 1 tablet (40 mg total) before bedtime. 90 tablet documented as of this encounter Plan of Treatment Not on file documented as of this encounter Goals GoalPatient Goal TypeAssociated ProblemsRecent ProgressPatient-Stated?Author JAMARCUS barker [facility] Yamilet Allen, DONTE Note: Evaluation of progress towards goal: Patient is unable to answer questions at this time r/t alteredmental status. Patient at this time is unable to care for self and will most likely need SNF versesLTC. Daughter, Tonny told the nurse she was hoping for somewhere like [facility]. However, [facility] is assisted living facility. Patient will most likely require a higher level of care and more ADL care than what [facility] can provide. documented as of this encounter Procedures Procedure NamePriorityDate/TimeAssociated DiagnosisCommentsECHO LIMITED WITH RSDYWSYWIsloecc27/11/2025 2:35 PM EST Ischemic cardiomyopathy documented in this encounter Results * Echo limited W/ contrast (12/24/2024 2:35 PM EST)ComponentValueRef RangeTest MethodAnalysis TimePerformed AtPathologist SignatureLV Systolic Krwatv76.30mL SESHXPHPL00%RJSDWQPNQ9253 - 44 %XCELERALV Diastolic Qpgvnv119.00mLXCELERALVIDd 5.25mxADFOADJKNGGh1.73dnFPFCFCQNVG0.770.6 - 1.1 cmXCELERAPW0.760.6 - 1.1 cm XCELERALA size3.60cmXCELERAAortic root3.10cmXCELERAEjection Fraction (M-Mode) 44.905656697383902%XCELERALV RWT 2D29.16XCELERAEcho EF Vtiixlqiu87%XCELERALeft Ventricle Ladu070.891155308440540jPZHUZWGOkgwvwhjbbwddanc Septum Diastolic Thickness by 2D7.72cmXCELERAAnatomical RegionLateralityModalityChestN/A UltrasoundSpecimen (Source)Anatomical Location / LateralityCollection Method / VolumeCollection TimeReceived Time Narrative 12/24/2024 5:37 PM EST Left Ventricle: Left ventricle appears normal in size. Systolic function is moderately decreased with an ejection fraction of 35-40%. See wall score diagram for wall motion abnormalities. No obvious apical thrombus. Left Ventricle Left ventricle appears normal in size. Wall thickness is normal. Systolic function is moderately decreased with an ejection fraction of 35-40%. See wall score diagram for wall motion abnormalities. Unable to assess diastolic function. No obvious apical thrombus. Wall Scoring Baseline Score Index: 2.41 The following segments are dyskinetic: apex. The following segments are akinetic: mid anteroseptal, apical anterior, apical septal, apical inferior and apical lateral. The following segments are hypokinetic: basal anterior, basal anteroseptal, basal inferoseptal, basal inferior, basal inferolateral, basal anterolateral, mid anterior, mid inferoseptal, mid inferior,mid inferolateral and mid anterolateral. Authorizing ProviderResult TypeResult StatusLaura Ruby De Guzmandaria [facility] ECHO ORDERABLESFinal Result documented in this encounter Visit Diagnoses Diagnosis Ischemic cardiomyopathy Other specified forms of chronic ischemic heart disease documented in this encounter Administered Medications Medication OrderMAR ActionAction DateDoseRateSite perflutren lipid microspheres (DEFINITY) dilution injection 1.43 mg/10 mL 2 mL, intravenous, Once in imaging, contrast, Starting on Mon12/24/24 at 1417, For 1 dose, Dilute 1.3 mL of Definity with 8.7 mL 0.9% NaCl in 10 mL syringe. Administer 2 mL perflutren (Definity) contrast if 2 contiguous segments of the LV are not well visualized. May repeat 2 mL dose until LV visualization is accomplished. Procedure total dose not to exceed 10 mL. Given12/24/2024 2:35 PM EST2 mLdocumented in this encounter Additional Health Concerns AssessmentNoted TimePHQ-9 Depression Total Score: 10:00 AM EDTA Body Mass Index follow-up plan has been documented for the jpxflqx0506/18/2020 4:09 PM EDTdocumented as of this encounter Care Teams Team MemberRelationshipSpecialtyStart DateEnd Date [facility], [place] [id number] [place], [place] PCP - GeneralFamily Medicine05/07/24documented as of this encounter
--- OUTSIDE RECORDS SUMMARY | 2024-12-26 13:14 | XMS_ITS | Encounter Summary ---
Author Organization [facility] Address [id number] [address] [place] [address] Care Team Providers Care Head Usher Name Role Phone Services, [facility] Primary Care Provider Encounter Details DateTypeDepartmentCare Team (Latest Contact Info)Qkjlrblgfsh20/11/2025Travel Social History Tobacco UseTypesPacks/DayYears UsedDateSmoking Tobacco: Every DayCigarettes Smokeless Tobacco: Never Comments:Patient states she drinks a lot. Alcohol UseStandard Drinks/WeekCommentsYes0 (1 standard drink = 0.6 oz pure alcohol)[facility] UtilitiesAnswerDate RecordedIn the past 12 months has the electric, gas, oil, or water company threatened to shut off services in your home?Patient unable to acpskm595AUDIT-CAnswerDate RecordedFrequency of Alcohol BrvaqaleiypCmshg31/09/2018Average Number of DrinksNot on file11/21/2017Frequency of Binge DrinkingNot on file11/21/2017PHQ-2AnswerDate RecordedTotal Score3 2PRAPARE - TransportationAnswerDate RecordedIn the past 12 months, has lack of transportation kept you from medical appointments or from getting medications?Patient unable to mstbgh1610/12/2024In the past 12 months, has lack of transportation kept you from meetings, work, or from getting things needed for daily living?Patient unable to gdyhqy0910/12/2024Housing InstabilityAnswerDate RecordedAre you worried or concerned that in the next two months you may not have stable housing that you own, rent or stay in as a part of a household? Patient unable to xzlpii365ChildcareAnswerDate RecordedChildcareUnknown 07/20/2018EmploymentAnswerDate GubnxetbDdefsxgyqgWtwqcoq10/07/2019Hunger ScreeningAnswerDate RecordedWithin the past 12 months we worried whether our food would run out before we got money to buy more.Never True10/15/2024Within the past 12 months the food we bought just didn't last and we didn't have money to get more.Never True10/15/2024Purpose - LifeAnswerDate RecordedPurpose and direction in cyxtYrqrmtl59/19/2021CommentsNoSex and Gender Information ValueDate RecordedSex Assigned at BirthNot on fileLegal BwxBotqyv35/04/2015 9:44 PM EDTGender IdentityNot on fileSexual OrientationNot on filedocumented as of this encounter Plan of Treatment Not on file documented as of this encounter Goals GoalPatient Goal TypeAssociated ProblemsRecent ProgressPatient-Stated?Author SNF [facility] LTC Yamilet Allen, DONTE Note: Evaluation of progress towards goal: Patient is unable to answer questions at this time r/t alteredmental status. Patient at this time is unable to care for self and will most likely need SNF versesC. Daughter, Tonny told the nurse she was hoping for somewhere like [facility]. However, [facility] is assisted living facility. Patient will most likely require a higher level of care and more ADL care than what [facility] can provide. documented as of this encounter Visit Diagnoses Not on filedocumented in this encounter Additional Health Concerns AssessmentNoted TimePHQ-9 Depression Total Score: 10:00 AM EDTA Body Mass Index follow-up plan has been documented for the cvsrexm1506/18/2020 4:09 PM EDTdocumented as of this encounter Care Teams Team MemberRelationshipSpecialtyStart DateEnd Date Services, [facility] [address] [place], [place] PCP - GeneralFamily Medicine05/07/24documented as of this encounter
--- OUTSIDE RECORDS SUMMARY | 2024-12-26 13:14 | XMS_ITS | Encounter Summary ---
Author Organization [facility] Address [id number] [address] [place] [address] Care Team Providers Care Coke Production Heater Name Role Phone Services, [facility] Primary Care Provider Encounter Details DateTypeDepartmentCare Team (Latest Contact Info)Jvzknmytndm93/12/2025Results Follow-Up [facility] [address] [place] [address] Nicho Helms RN Echo limited W/ contrast Social History Tobacco UseTypesPacks/DayYears UsedDateSmoking Tobacco: Every DayCigarettes Smokeless Tobacco: Never Comments:Patient states she drinks a lot. Alcohol UseStandard Drinks/WeekCommentsYes0 (1 standard drink = 0.6 oz pure alcohol)[facility] UtilitiesAnswerDate RecordedIn the past 12 months has the electric, gas, oil, or water company threatened to shut off services in your home?Patient unable to iuhbaz4310/12/2024UDIT-CAnswerDate RecordedFrequency of Alcohol AbhiitmjosePncws94/09/2018Average Number of DrinksNot on file11/21/2017Frequency of Binge DrinkingNot on file11/21/2017PHQ-2AnswerDate RecordedTotal Score3 2PRAPARE - TransportationAnswerDate RecordedIn the past 12 months, has lack of transportation kept you from medical appointments or from getting medications?Patient unable to fjzfdt9910/12/2024In the past 12 months, has lack of transportation kept you from meetings, work, or from getting things needed for daily living?Patient unable to lrwshw2610/12/2024Housing InstabilityAnswerDate RecordedAre you worried or concerned that in the next two months you may not have stable housing that you own, rent or stay in as a part of a household? Patient unable to ztihpc2110/12/2024hildcareAnswerDate RecordedChildcareUnknown 07/20/2018EmploymentAnswerDate UmoctbbkIavuszrrcrLbwrzjm13/07/2019Hunger ScreeningAnswerDate RecordedWithin the past 12 months we worried whether our food would run out before we got money to buy more.Never True10/15/2024Within the past 12 months the food we bought just didn't last and we didn't have money to get more.Never True10/15/2024Purpose - LifeAnswerDate RecordedPurpose and direction in jfafSklolat30/19/2021CommentsNoSex and Gender Information ValueDate RecordedSex Assigned at BirthNot on fileLegal VfnKlogks96/04/2015 9:44 PM EDTGender IdentityNot on fileSexual OrientationNot on filedocumented as of this encounter Plan of Treatment Not on file documented as of this encounter Goals GoalPatient Goal TypeAssociated ProblemsRecent ProgressPatient-Stated?Author [facility] Yamilet Allen RN Note: Evaluation of progress towards goal: Patient is unable to answer questions at this time r/t alteredmental status. Patient at this time is unable to care for self and will most likely need SNF versesLTC. Daughter, Tonny told the nurse she was hoping for somewhere like [facility]. However, [facility] is assisted living facility. Patient will most likely require a higher level of care and more ADL care than what [facility] can provide. documented as of this encounter Visit Diagnoses Not on filedocumented in this encounter Additional Health Concerns AssessmentNoted TimePHQ-9 Depression Total Score: 10:00 AM EDTA Body Mass Index follow-up plan has been documented for the kuwfujj6006/18/2020 4:09 PM EDTdocumented as of this encounter Care Teams Team MemberRelationshipSpecialtyStart DateEnd Date Services, [facility] [address], [place] PCP - GeneralFamily Medicine05/07/24documented as of this encounter
--- OUTSIDE RECORDS SUMMARY | 2024-12-26 13:15 | XMS_ITS | Clinical Summary ---
Author Organization [employer] tem Address [id number] [address] 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 Name Role Phone Services, [facility] Primary Care Provider Allergies Active AllergyReactionsCriticalityNoted DateCommentsSulfa (Sulfonamide Antibiotics)Itching,FvqkLfuykv94/21/2018 Medications MedicationSigDispense QuantityRefillsLast FilledStart DateEnd DateStatus gabapentin (NEURONTIN) 300 mg capsule Take 1 capsule (300 mg total) by mouth in the morning and 1 capsule (300 mg total) at noon and 1 capsule (300 mg total) in the evening and 1 capsule (300 mg total) before bedtime.Active busPIRone (BUSPAR) 10 mg tablet Take 1 tablet (10 mg total) by mouth in the morning and 1 tablet (10 mg total) before bedtime.5Active folic acid (FOLVITE) 1 mg tablet Take 1 tablet (1 mg total) by mouth in the morning.5Active atorvastatin (LIPITOR) 80 mg tablet Take 1 tablet (80 mg total) by mouth nightly. 90 tablet 5Active dapagliflozin propanediol (FARXIGA) 10 mg tablet Take 1 tablet (10 mg total) by mouth in the morning for 360 days. 90 tablet 6Active spironolactone (ALDACTONE) 25 mg tablet Take 1 tablet (25 mg total) by mouth in the morning. 90 tablet 5Active valsartan (DIOVAN) 40 mg tablet Take 1 tablet (40 mg total) by mouth in the morning and 1 tablet (40 mg total) before bedtime. 90 tablet 5Active clopidogreL (PLAVIX) 75 mg tablet Take 1 tablet (75 mg total) by mouth in the morning. 30 tablet 5Active cyclobenzaprine (FLEXERIL) 10 mg tablet Take 1 tablet (10 mg total) by mouth once daily at bedtime.5Active metoprolol succinate XL (TOPROL XL) 25 mg 24 hr tablet Take 0.5 tablets (12.5 mg total) by mouth in the morning.5Active sucralfate (CARAFATE) 1 gram tablet Take 1 tablet (1 g total) by mouth 4 (four) times a day before meals and nightly.5Active pantoprazole (PROTONIX) 40 mg EC tablet Take 1 tablet (40 mg total) by mouth in the morning.5Active Active Problems ProblemNoted DateDiagnosed DateGallstone omohsuzlkefu92/04/2025Moderate protein- calorie rtpudczlywvf45/03/2025nemia of chronic ckzmdec2110/15/2024Iron deficiency tkugpa9210/14/20246377Bgeeglwkkuai06/31/2025ETOH abuse10/12/20243288Nftoou61/30/2025ute pancreatitis, unspecified complication status, unspecified pancreatitis type 10/11/2024Ischemic rlmrieeqmkyjfh30/25/0118Fgmqca04/31/2025hronic systolic heart srhsxzx4006/17/2024Mixed appbvoabavjyxy37/29/2025HB (complete heart block) 05/07/2024ST elevation myocardial infarction (STEMI)05/07/2024oronary artery disease involving [place] coronary artery of [place] heart05/07/2024Osteoarthritis of cervical spine03/14/2018 Overview (03/14/2018): Added automatically from request for surgery [id number] Cervical spondylosis without fycnhsggcj72/21/2018HTN (hypertension) Encounters DateTypeDepartmentCare PifzClvuwerhylz98/12/2025Results Follow-Up [facility] [address] [place] [address] Nicho Helms RN Echo limited W/ fmtgwjop91/11/2025 2:00 PM EST - 12/24/2024 11:59 PM ESTHospital Encounter [facility] - Cardiovascular [address] [place] [phone] Julianna Hdez MD Ischemic cardiomyopathy Discharge Disposition: Home12/24/20245269Kockuj74/08/2025 2:45 PM EDTAnesthesia Event [facility] - Surgery [address] [place] [phone] Igor Blanco MD 10/11/2024 1:27 PM EDT - 10/25/2024 12:30 PM EDTHospital Encounter [facility] - Acute Care [address] [place] [phone] Ranjana Braun, DO Carolina Mccarthy MD Muhammad, Ruqiyya T, MD Acute pancreatitis, unspecified complication status, unspecified pancreatitis type (Primary Dx); Abnormal LFTs; Moderate protein-calorie malnutrition; Weakness generalized Discharge Disposition: Nursing Home Facility-Medicare Cert10/11/2024Travel 10/07/2024 3:15 PM EDTOffice Visit [facility] [address] [facility] [address] [place] [phone] Julianna Hdez MD Chronic systolic heart failure ([facility]) (Primary Dx); Ischemic cardiomyopathy; Mixed rreqeqwdqrsogc39/25/1576Kdiuqu68/22/2025Telephone [facility] [address] [facility] [address] [place] [phone] Arlin Rodriguez CMA 09/30/2024Telephone [facility] [address] [place] [address] Cher Maciel, DOLL MAKER-TANK WELDER from Last 3 Months Immunizations ImmunizationAdministration DatesNext EunXalg74/21/2020 Family History Medical HistoryRelationNameCommentsHeart diseaseFatherHeart diseaseMotherHeart diseaseSonRelationNameStatusCommentsFatherDeceasedMotherAliveSon Social History Tobacco UseTypesPacks/DayYears UsedDateSmoking Tobacco: Every DayCigarettes Smokeless Tobacco: Never Tobacco Cessation:Ready to Q uit: Not Asked; Counseling Given: Not Answered Comments:Patient states she drinks a lot. Alcohol UseStandard Drinks/WeekCommentsYes0 (1 standard drink = 0.6 oz pure alcohol)[facility] UtilitiesAnswerDate RecordedIn the past 12 months has the [employer], [employer], oil, or water [employer] threatened to shut off services in your home?Patient unable to zxjxas7210/12/2024UDIT-CAnswerDate RecordedFrequency of Alcohol DoqzzwaydyzGjrpr99/09/2018Average Number of DrinksNot on file11/21/2017Frequency of Binge DrinkingNot on file11/21/2017PHQ-2AnswerDate RecordedTotal Score3 2PRAPARE - TransportationAnswerDate RecordedIn the past 12 months, has lack of transportation kept you from medical appointments or from getting medications?Patient unable to isgvhj5210/12/2024In the past 12 months, has lack of transportation kept you from meetings, work, or from getting things needed for daily living?Patient unable to xbdyom0810/12/2024Housing InstabilityAnswerDate RecordedAre you worried or concerned that in the next two months you may not have stable housing that you own, rent or stay in as a part of a household? Patient unable to iqziss2010/12/2024hildcareAnswerDate RecordedChildcareUnknown 07/20/2018EmploymentAnswerDate IjqugzacRpfcvlctutFbduafg09/07/2019Hunger ScreeningAnswerDate RecordedWithin the past 12 months we worried whether our food would run out before we got money to buy more.Never True10/15/2024Within the past 12 months the food we bought just didn't last and we didn't have money to get more.Never True10/15/2024Purpose - LifeAnswerDate RecordedPurpose and direction in cqgxFqzccvp89/19/2021CommentsNoSex and Gender Information ValueDate RecordedSex Assigned at BirthNot on fileLegal CmkUsrcjc76/04/2015 9:44 PM EDTGender IdentityNot on fileSexual OrientationNot on file Last Filed Vital Signs Vital SignReadingTime TakenCommentsBlood Jvqcfsma447/8610/25/2024 7:25 AM EDT Uohsb428810/25/2024 7:25 AM VGSKyrysnujbim93.4 ??C (97.5 ??F)10/25/2024 7:25 AM EDTRespiratory Ubbt526110/25/2024 7:25 AM EDTOxygen Qsivytooqz59%10/25/2024 7:25 AM EDTInhaled Oxygen Concentration--Rhtkmx60.3 kg (113 lb 1.6 oz)10/22/2024 5:00 AM BRNGxvnxu749.4 cm (5')10/17/2024 3:54 PM EDTBody Mass Index22.0910/17/2024 3:54 PM EDT Plan of Treatment Health MaintenanceDue DateLast DoneCommentsTobacco Eisfgobtje89/11/1963 Depression Adsuzeqks46/11/1975Pap Smear09/24/19831111Mwznbodzh43/11/2003Zoster (Shingles) Vaccine (1 of 2)2012RSV ( or age 60+ yrs) (1 - Risk 60- 74 years 1-dose series)2022Influenza Dsefuth8410/14/2024Statin Use: Dvigiaswaadqgq55/05/202605/06/2024Tobacco Hllvmlhmn96/dult BMI Etkdvwume00/10/2024DTaP,Tdap and Td Vaccines (2 - Td or Tdap) Goals GoalPatient Goal TypeAssociated ProblemsRecent ProgressPatient-Stated?Author SNF verses LTC Yamilet Allen, RN Note: Evaluation of progress towards goal: Patient is unable to answer questions at this time r/t alteredmental status. Patient at this time is unable to care for self and will most likely need SNF versesLTC. Daughter, Tonny told the nurse she was hoping for somewhere like [facility]. However, [facility] is assisted living facility. Patient will most likely require a higher level of care and more ADL care than what [facility] can provide. Medical Devices ImplantedTypeAreaManufacturerDevice IdentifierShelf Expiration DateModel / Serial / LotSystem Cor Stnt 2.75mm X 48mm 144cm Synergy Xd Mnrl Sean Pltn - [id number] Implanted:Qty: 1 on 05/07/2024 [facility] ArterialBoston [id number]/ [id number] / / [id number] Cor Stnt 2.25mm X 15mm 145cm Xience Skypnt Mtlnk Sean - [id number] Implanted:Qty: 1 on 05/09/2024 [facility]: [id number] / / [id number] Procedures Procedure NamePriorityDate/TimeAssociated DiagnosisCommentsECHO LIMITED WITH DSQBFNPWZtrtyzv56/11/2025 2:35 PM EST Ischemic cardiomyopathy SCGEXHZROMyohold34/12/2025 5:45 AM EDT CBC WITH AUTO GCBWSDOEJWXTXoaaeyd43/12/2025 5:45 AM EDT COMPREHENSIVE METABOLIC LEFCAYqpzwjv85/12/2025 5:45 AM EDT KYPVGJTXDPHdgmilf52/11/2025 4:00 AM EDT CBC WITH AUTO IZOWXEPOFYYVCnqmrtr12/11/2025 4:00 AM EDT WFLXGSSPPUetnhsw87/11/2025 4:00 AM EDT COMPREHENSIVE METABOLIC SADALUrbfmlf59/11/2025 4:00 AM EDT OCCULT BLOOD X 1, AIIPTPlerwyl79/10/2025 5:34 PM EDT BEDSIDE JSKRAFAWrdydtw75/10/2025 6:30 AM EDT DCDCKQIGPJHwaqmek39/10/2025 4:32 AM EDT CBC WITH AUTO WFOKBVSGVJXUJakdhjm42/10/2025 4:32 AM EDT YHQDEVCSFZezbvpw74/10/2025 4:32 AM EDT COMPREHENSIVE METABOLIC CZTQGJkrnznv73/10/2025 4:32 AM EDT BEDSIDE XIFNXEOHmrlnxt81/09/2025 11:51 PM EDT HEMOGLOBIN AND HEMATOCRIT, OZLEPFfaohxj92/09/2025 6:34 PM EDT BEDSIDE LORCZGTCoqncke20/09/2025 4:30 PM EDT TRANSFUSE RED BLOOD ZYGYXMszfeiz70/09/2025 2:45 PM EDTBEDSIDE GLUCOSERoutine 10/22/2024 12:09 PM EDT VXWUTSMLIWPoabuyd21/09/2025 5:01 AM EDT CBC WITH AUTO WASQPTCLFFBWZjtodce44/09/2025 5:01 AM EDT CQMXROOQISknvnuo98/09/2025 5:01 AM EDT COMPREHENSIVE METABOLIC JKGLRVbyleym30/09/2025 5:01 AM EDT BEDSIDE YVPWJUEDyakmpt43/09/2025 4:52 AM EDT BEDSIDE XJXTXJHPthsrfv08/09/2025 12:42 AM EDT HEMOGLOBIN AND HEMATOCRIT, FWZYOJlupdzr30/08/2025 9:20 PM EDT BEDSIDE VGGKNXLSszfegm56/08/2025 6:56 PM EDT TYPE AND UOKXWIOHEF27/08/2025 3:46 PM EDT HEMOGLOBIN AND HEMATOCRIT, KVNZWRbghgkl40/08/2025 3:46 PM EDT CROSSMATCH UQAQnyvjah86/08/2025 3:30 PM EDT LPYQLCPUVGMkwwbzj48/08/2025 4:53 AM EDT CBC WITH AUTO OFDPLBVESDFOCatjcye96/08/2025 4:53 AM EDT EKOCCSJGRTfdnegc14/08/2025 4:53 AM EDT COMPREHENSIVE METABOLIC SCWJYQlxawrr26/08/2025 4:53 AM EDT BEDSIDE FXCEMDWJpwlews04/07/2025 11:19 PM EDT BEDSIDE BRJUUHHPezitfa97/07/2025 6:32 PM EDT IONIZED PNLAXKWNfmijzs70/07/2025 4:34 PM EDT DXJLQXQSJMxccdgi64/07/2025 4:34 PM EDT HQLMZYLQBJtnvzov12/07/2025 4:34 PM EDT HEMOGLOBIN AND HEMATOCRIT, PGIMVOcshopa39/07/2025 4:34 PM EDT BEDSIDE XZFGPLNYdhpmiv77/07/2025 12:51 PM EDT PDGFYFJHNQXGZUondcmk32/07/2025 4:41 AM EDT IAMEKECVFMViweiee26/07/2025 4:41 AM EDT CBC WITH AUTO EJPGDIMDBNSEMejjknr13/07/2025 4:41 AM EDT LYMMXVPIDSuxewto67/07/2025 4:41 AM EDT COMPREHENSIVE METABOLIC WDGHMWfmxzso42/07/2025 4:41 AM EDT HEMOGLOBIN AND HEMATOCRIT, HENHXWohknvt69/06/2025 9:34 PM EDT BEDSIDE PMXFGCZCmvrxcr87/06/2025 6:45 PM EDT HPMWLQWBOAobeesp28/06/2025 1:13 PM EDT HEMOGLOBIN AND HEMATOCRIT, WSUPHFyvrjdp90/06/2025 1:13 PM EDT EXTRA TUBES PST LINGmzsvqt63/06/2025 1:00 PM EDT EXTRA ZNMRDQbrrcui48/06/2025 1:00 PM EDT BEDSIDE NBYIFOEVwbnynz85/06/2025 12:45 PM EDT EBIZAPDjfuzyo66/06/2025 4:39 AM EDT JCQGBWBRHRFifxdpg53/06/2025 4:39 AM EDT CBC WITH AUTO SJLCHLKDSQDKOvjvpob44/06/2025 4:39 AM EDT AUYANMFNAYqgbamu89/06/2025 4:39 AM EDT COMPREHENSIVE METABOLIC OGZMSOrkedrs18/06/2025 4:39 AM EDT BEDSIDE XVBTWXIPjtamom55/05/2025 9:57 PM EDT HEMOGLOBIN AND HEMATOCRIT, EWDJKRlkmwin69/05/2025 9:18 PM EDT BEDSIDE MOOGGEKUhlhzhh58/05/2025 6:05 PM EDT BIZNSIGMXQybnsce79/05/2025 4:56 PM EDT HEMOGLOBIN AND HEMATOCRIT, NEZVRTigaoyc92/05/2025 1:06 PM EDT BEDSIDE TUJDXCJRaujagx20/05/2025 12:10 PM EDT ZUAXCTQJIRGapcmoi57/05/2025 4:16 AM EDT CBC WITH AUTO UDDTIBKLNVZXMqgrfzv96/05/2025 4:16 AM EDT WYSIYUMSGSxnncqc91/05/2025 4:16 AM EDT COMPREHENSIVE METABOLIC EVYSWBjdikko98/05/2025 4:16 AM EDT BEDSIDE DKLXOGTRlxzpdk06/04/2025 11:32 PM EDT HEMOGLOBIN AND HEMATOCRIT, SRLQIZsgarii72/04/2025 6:41 PM EDT XSROSQUJRZybfazo82/04/2025 6:41 PM EDT NSWIAJAYPVzjigvj29/04/2025 6:41 PM EDT BEDSIDE VGAWEEAKudfues02/04/2025 5:37 PM EDT DVLLdilqld11/04/2025 5:06 PM EDT TRANSFUSE RED BLOOD WMBWMCntpcav66/04/2025 3:54 PM EDTHEMOGLOBIN AND HEMATOCRIT, DBWJUZejiohm43/04/2025 12:48 PM EDT CBC WITH AUTO JFNYINMZGIANTypgdpl45/04/2025 5:57 AM EDT VCALGKUSVXksdmsw74/04/2025 5:57 AM EDT COMPREHENSIVE METABOLIC SGRNOEyglhuk17/04/2025 5:57 AM EDT FYHCMHPGEHddjjbp25/03/2025 9:39 PM EDT HEMOGLOBIN AND HEMATOCRIT, YKTLOJubvpph00/03/2025 9:39 PM EDT MR MRCP WITH MRI ABD WO RZARVjmtodl66/03/2025 3:45 PM EDT MR BRAIN WO CATPAbxbrms58/03/2025 2:46 PM EDT LYPQRXCNLApdlikx55/03/2025 12:53 PM EDT OCCULT BLOOD X 1, ORJXMAtrgamf93/03/2025 11:27 AM EDT CROSSMATCH UYGCsplihb97/03/2025 9:00 AM EDT TYPE AND VAGXAQLwrtypr41/03/2025 8:49 AM EDT BCUIKPZWDOGujhzuw63/03/2025 8:49 AM EDT REPEATED PHMLYUdfffym02/03/2025 7:00 AM EDT TJZKVTCHIIVocfccv82/03/2025 5:10 AM EDT ZGHNSSYusvefq24/03/2025 5:10 AM EDT CBC WITH AUTO UBOHZGGBKMBRJbxpgpn14/03/2025 5:10 AM EDT ZJWMFLPZTRhkmiib40/03/2025 5:10 AM EDT COMPREHENSIVE METABOLIC ZHAHBLyyeenj79/03/2025 5:10 AM EDT NTYKLXBSMUgnawpt92/03/2025 1:32 AM EDT XZXOMDYOCLFphnaei26/03/2025 1:32 AM EDT ECHO COMPLETE WO XJCILYOUWdhrfbg90/02/2025 4:25 PM EDT IONIZED BTRKQCQPhlukuj96/02/2025 4:00 PM EDT THIAMIN (VITAMIN B1), VGKrrljli64/02/2025 1:20 PM EDT SODIUMAdd-On10/15/2024 12:34 PM EDT FOLATEAdd-On10/15/2024 12:34 PM EDT PHOSPHORUSAdd-On10/15/2024 12:34 PM EDT THYROID PROFILE INCLUDES TSH IB2Jbx-Ja62/02/2025 12:34 PM EDT US ABDOMEN WYEWApnhmrq11/02/2025 10:56 AM EDT VITAMIN G04Woi-Am84/02/2025 5:23 AM EDT EXTYHMOexmgeb39/02/2025 5:23 AM EDT CBC WITH AUTO XAXMCFAWYQQPHsjqeap73/02/2025 5:23 AM EDT HYMZRNSIULwnjyja86/02/2025 5:23 AM EDT COMPREHENSIVE METABOLIC OMELNNgqtbby37/02/2025 5:23 AM EDT EYWSPLFEZwueawk14/01/2025 10:39 PM EDT IRON AND INBNOjtyunp24/01/2025 10:39 PM EDT NLZYFFNRdsqzjw18/01/2025 11:11 AM EDT POCT IONIZED GUSJPSFTqrwxcx67/01/2025 8:51 AM EDT EXTRA TUBES BLUE FMBPsdfhmc55/01/2025 6:57 AM EDT HEPATITIS PANEL, YUAYACcbaxpl62/01/2025 6:57 AM EDT PHOSPHORUSAdd-On10/14/2024 6:57 AM EDT EXTRA YURJRRguohjq76/01/2025 6:57 AM EDT BJMSZRBgbhkuk25/01/2025 6:57 AM EDT CBC WITH AUTO IGIMMQQNSYKAPrewdje49/01/2025 6:57 AM EDT LIMICXKIHMzfqnbm05/01/2025 6:57 AM EDT COMPREHENSIVE METABOLIC IGACUKypuymf80/01/2025 6:57 AM EDT POCT IONIZED FEFEODOEeewogo91/31/2025 6:02 PM EDT IONIZED KROGZWZUuvktcq95/31/2025 7:58 AM EDT LIPASEAdd-On10/13/2024 5:27 AM EDT CBC WITH AUTO FZEKDORGBMZBLpmfruu05/31/2025 5:27 AM EDT CIZTOPUSBZdbzxsb71/31/2025 5:27 AM EDT COMPREHENSIVE METABOLIC MMGWOKivkzwm99/31/2025 5:27 AM EDT EXTRA TUBES BLUE HPEArnyrgl80/31/2025 5:26 AM EDT EXTRA WEFQGCtjmwjp94/31/2025 5:26 AM EDT USIFFGPCGIVDmhegul58/30/2025 1:21 PM EDTTROP I, HIGH SENSITIVITY 3 HOURRoutine 10/12/2024 10:01 AM EDT LACTATE W/ REFLEXAdd-On10/12/2024 10:01 AM EDT LACTATE W/ JLFAWVNvgqudp12/30/2025 8:19 AM EDT EXTRA TUBES BLUE BWBGznptrj13/30/2025 5:30 AM EDT EXTRA KLVQZMbaxfeq24/30/2025 5:30 AM EDT CBC WITH AUTO VTQUAGQIQFBOPnzsqvt36/30/2025 5:30 AM EDT UIZITFCWNPaakkgx52/30/2025 5:30 AM EDT COMPREHENSIVE METABOLIC KFMIFKhlwgfw69/30/2025 5:[address] BRAIN WO FXMZCSCJ96/29/2025 9:[address] ABDOMEN AND PELVIS W TMGLKKZH85/29/2025 8:[address] CERVICAL SPINE WO UIJCSFKM42/29/2025 8:24 PM EDT QIFWREDEZKT67/29/2025 8:05 PM EDT POCT NURSING URINE MACROSCOPIC UDXkweiom57/29/2025 5:40 PM EDT DRUG SCREEN, INMIUZSGI60/29/2025 5:30 PM EDT ER EXTRA URINE ZADLEVNTDW89/29/2025 5:30 PM EDT ER EXTRA URINE MXQLVZOGMUL96/29/2025 5:30 PM EDT ER EXTRA EGQKXJRVS34/29/2025 5:30 PM EDT EXTRA TUBES LAVENDER TOP ON EBWEyoorho50/29/2025 4:15 PM EDT EXTRA FSYAOLrvqojk59/29/2025 4:15 PM EDT TROP I, HIGH SENSITIVITY 1 KXQISJJN81/29/2025 4:15 PM EDT LACTATE W/ MSAJCWBMFH03/29/2025 4:15 PM EDT TROPONIN I, HIGH SENSITIVITY 0 SDGJIQPI41/29/2025 3:00 PM EDT YIRUFEHEGR34/29/2025 3:00 PM EDT TROPONIN I, HIGH SENSITIVITY 0 JMRTXMVT53/29/2025 3:00 PM EDT GRGNNLEOSCNOH61/29/2025 3:00 PM EDT COMPREHENSIVE METABOLIC DMEIPJPCW39/29/2025 3:00 PM EDT CBC WITH AUTO WUIWPRVKNXDGRNQA49/29/2025 3:00 PM EDT ECG 12-GYLAJCRH76/29/2025 2:13 PM EDTfrom Last 3 Months Results * Echo limited W/ contrast (12/24/2024 2:35 PM EST)ComponentValueRef RangeTest MethodAnalysis TimePerformed AtPathologist SignatureLV Systolic Uaxzre93.30mL PWNLNCVNX78%ZPOUQICMX1185 - 44 %XCELERALV Diastolic Tqrfsx973.00mLXCELERALVIDd 5.60cxDUFHMDXSNGDj0.05ruFWCKKBWNBX8.770.6 - 1.1 cmXCELERAPW0.760.6 - 1.1 cm XCELERALA size3.60cmXCELERAAortic root3.10cmXCELERAEjection Fraction (M-Mode) 44.791310462818272%XCELERALV RWT 2D29.16XCELERAEcho EF Rwqopvjwe51%XCELERALeft Ventricle Ukow355.408691323529988sZLMSDDZLqztdqucjowgrhep Septum Diastolic Thickness by 2D7.72cmXCELERAAnatomical RegionLateralityModalityChestN/A UltrasoundSpecimen [...] and mid anterolateral. Authorizing ProviderResult TypeResult StatusLaura L Agnesian HealthCare ECHO ORDERABLESFinal Result * (ABNORMAL) CBC auto differential (10/25/2024 5:45 AM EDT) Only the most recent of15 resultswithin the time period is included. ComponentValueRef RangeTest MethodAnalysis TimePerformed AtPathologist Signature WBC5.94 - 11 x10E9/L10/25/2024 7:44 AM [facility] Count3.34(L)3.8 - 5.2 X10E12/L10/25/2024 7:44 AM [facility]Hemoglobin9.6(L)11.7 - 15.5 g/dL10/25/2024 7:44 AM [facility]ITALHematocrit28.4(L)35 - 47 %10/25/2024 7:44 AM [facility]8580 - 100 fL10/25/2024 7:44 AM [facility]H28.727 - 34 pg10/25/2024 7:44 AM [facility]HC33.832 - 36 g/dL10/25/2024 7:44 AM [facility]RDW20.6(H)11.5 - 15 %10/25/2024 7:44 AM [facility]ITALPlatelet Puyzc251360 - 450 X10E9/L10/25/2024 7:44 AM EDT [facility]MPV8.77 - 12 fL10/25/2024 7:44 AM EDT [facility]ITALMetamyelocytes %1%10/25/2024 7:44 AM EDT [facility]Comment:This is an appended report. These results have been appended to a previously preliminary verified report. Neutrophils %50%10/25/2024 7:44 AM [facility] Comment:This is an appended report. These results have been appended to a previously preliminary verified report.Lymphocytes %36%10/25/2024 7:44 AM EDT [facility]Comment:This is an appended report. These results have been appended to a previously preliminary verified report.Monocytes %9%10/25/2024 7:44 AM [facility]:This is an appended report. These results have been appended to a previously preliminary verified report.Eosinophils %3%10/25/2024 7:44 AM [facility]:This is an appended report. These results have been appended to a previously preliminary verified report.Basophils %3%10/25/2024 7:44 AM EDT [facility]Comment:This is an appended report. These results have been appended to a previously preliminary verified report. Neutrophils Absolute (M)2.91.5 - 6.6 10*3/uL10/25/2024 7:44 AM [facility]:This is an appended report. These results have been appended to a previously preliminary verified report.Lymphocytes Absolute 2.11.0 - 3.5 10*3/uL10/25/2024 7:44 AM [facility] Comment:This is an appended report. These results have been appended to a previously preliminary verified report.Monocytes Absolute0.50.0 - 0.9 10*3/uL 10/25/2024 7:44 AM [facility]Comment:This is an appended report. These results have been appended to a previously preliminary verified report.Eosinophils Absolute0.10.0 - 0.4 10*3/uL10/25/2024 7:44 AM EDT [facility]Comment:This is an appended report. These results have been appended to a previously preliminary verified report.Basophils Absolute0.10.0 - 0.2 10*3/uL10/25/2024 7:44 AM [facility]Comment:This is an appended report. These results have been appended to a previously preliminary verified report.Elliptocytes1+10/25/2024 7:44 AM EDT [facility]Comment:This is an appended report. These results have been appended to a previously preliminary verified report. Differential TypeMANUAL WZQBWFJJFNFA45/12/2025 7:44 AM [facility]Comment:This is an appended report. These results have been appended to a previously preliminary verified report.Specimen (Source)Anatomical Location / LateralityCollection Method / VolumeCollection TimeReceived TimeBlood Venous blood / [id number]/25/2024 5:45 AM EDT10/25/2024 6:00 AM EDT Narrative Authorizing ProviderResult TypeResult StatusLove Casey DOLL MAK[facility] HOSPITALLAB BLOOD ORDERABLESFinal ResultPerforming OrganizationAddressCity/State/ZIP CodePhone Number [facility] [address] [place] [address], * (ABNORMAL) Magnesium (10/25/2024 5:45 AM EDT) Only the most recent of19 resultswithin the time period is included. ComponentValueRef RangeTest MethodAnalysis TimePerformed AtPathologist Signature MAGNESIUM1.7(L)1.8 - 2.6 mg/dL10/25/2024 6:18 AM EDTPROM[facility]ITALSpecimen (Source)Anatomical Location / LateralityCollection Method / VolumeCollection TimeReceived TimeBloodVenous blood / Rhobhwz1110/25/2024 5:45 AM EDT10/25/2024 5:59 AM EDT Narrative Authorizing ProviderResult TypeResult StatusMichael E Grillis DOLAB BLOOD ORDERABLESFinal ResultPerforming OrganizationAddressCity/State/ZIP CodePhone Number [facility] [address] [place] [address], * (ABNORMAL) Comprehensive metabolic panel (10/25/2024 5:45 AM EDT) Only the most recent of15 resultswithin the time period is included. ComponentValueRef RangeTest MethodAnalysis TimePerformed AtPathologist Signature PAHQHB107(L)134 - 146 mmol/L10/25/2024 6:18 AM [facility]ITALPOTASSIUM3.83.5 - 5.0 mmol/L10/25/2024 6:18 AM [facility]ITALCHLORIDE10298 - 109 mmol/L10/25/2024 6:18 AM [facility]ITALCARBON [id number] - 32 mmol/L10/25/2024 6:18 AM EDT [facility]ITALANION GAP55 - 15 mmol/L10/25/2024 6:18 AM EDT [facility]ITALBLOOD UREA BGQYCFDK20 - 27 mg/dL10/25/2024 6:18 AM [facility]ITALCREATININE0.580.40 - 1.00 mg/dL 10/25/2024 6:18 AM [facility]ITALComment:METHOD TRACEABLE TO IDMS UCVGUSLMXYPTYOR815(H)65 - 99 mg/dL10/25/2024 6:18 AM EDT [facility]OS[facility]ITALCALCIUM7.9(L)8.5 - 10.5 mg/dL10/25/2024 6:18 AM [facility]ITALTOTAL PROTEIN6.76.0 - 8.0 g/dL 10/25/2024 6:18 AM [facility]ITALALBUMIN2.4(L)3.2 - 5.3 g/dL10/25/2024 6:18 AM [facility]PITALALKALINE FGFLZIACHMD132(H)39 - 130 U/L10/25/2024 6:18 AM [facility]ITALAST74(H)<=41 U/L10/25/2024 6:18 AM [facility]ALT120(H)<=31 U/L10/25/2024 6:18 AM [facility]PITALBILIRUBIN,TOTAL0.90.3 - 1.2 mg/dL10/25/2024 6:18 AM [facility]OSPITALEGFR Non-Race Dependent>90>=60 ml/min/1.73sq.m010/25/2024 6:18 AM [facility]ITALComment: eGFR not reported due to non-numeric value for Creatinine. Reported eGFR is based on the CKD-EPI 2020 equation that does not use a race coefficient. Specimen (Source)Anatomical Location / LateralityCollection Method / Volume Collection TimeReceived TimeBloodVenous blood / Keabgbl9110/25/2024 5:45 AM EDT 10/25/2024 5:59 AM EDT Narrative Authorizing ProviderResult TypeResult StatusLove Casey APRN-CNPLAB BLOOD ORDERABLESFinal ResultPerforming OrganizationAddressCity/State/ZIP CodePhone Number [place] [phone] [facility] [place] [address], * Phosphorus (10/24/2024 4:00 AM EDT) Only the most recent of11 resultswithin the time period is included. ComponentValueRef RangeTest MethodAnalysis TimePerformed AtPathologist Signature PHOSPHORUS2.42.4 - 4.9 mg/dL10/24/2024 6:47 AM [facility]ENTERpecimen (Source)Anatomical Location / LateralityCollection Method / VolumeCollection TimeReceived TimeBloodVenous blood / UnknownCentral Line / Otjzjpc9810/24/2024 4:00 AM EDT10/24/2024 5:21 AM EDT Narrative Authorizing ProviderResult TypeResult StatusMichael E Grillis DOLAB BLOOD ORDERABLESFinal ResultPerforming OrganizationAddressCity/State/ZIP CodePhone Number [address] [place] [address], * (ABNORMAL) Occult blood x 1, stool (10/23/2024 5:34 PM EDT) Only the most recent of2 resultswithin the time period is included. ComponentValueRef RangeTest MethodAnalysis TimePerformed AtPathologist Signature FECAL OCCULT BLOODPositive(A)Zqpaxyfc08/10/2025 6:31 PM EDF[facility] (Source)Anatomical Location / LateralityCollection Method / VolumeCollection TimeReceived TimeStoolFeces / Ljdmlmd3610/23/2024 5:34 PM EDT10/23/2024 5:43 PM EDT Narrative Authorizing ProviderResult TypeResult StatusKyle D Krotzer DOLL MAKER-CNPBODY FLUIDS AND STOOLS ORDERABLESFinal ResultPerforming OrganizationAddressCity/State/ZIP CodePhone Number [address] [place] [address], [place] * Bedside Glucose *Place/Obtain serum glucose if >500 per glucometer. (10/23/2024 6:30 AM EDT) Only the most recent of17 resultswithin the time period is included. ComponentValueRef RangeTest MethodAnalysis TimePerformed AtPathologist Signature Bedside Glucose (POC)9065 - 99 mg/dL10/23/2024 11:24 AM [facility] (Source)Anatomical Location / LateralityCollection Method / VolumeCollection TimeReceived Timearterial/jlsrehmrp43/10/2025 6:30 AM EDT10/23/2024 11:24 AM EDT Narrative Authorizing ProviderResult TypeResult StatusMuhamid M Fabio MDPOINT OF CARE TEST ORDERABLESFinal ResultPerforming OrganizationAddressCity/State/ZIP CodePhone Number [address] [place] [address], [place] * (ABNORMAL) Hemoglobin and hematocrit, blood (10/22/2024 6:34 PM EDT) Only the most recent of11 resultswithin the time period is included. ComponentValueRef RangeTest MethodAnalysis TimePerformed AtPathologist Signature Hemoglobin8.7(L)11.7 - 15.5 g/dL10/22/2024 6:41 PM EDMER[facility]ORIAL HOSPITALHematocrit26.0(L)35 - 47 %10/22/2024 6:41 PM EDF[facility] (Source)Anatomical Location / LateralityCollection Method / VolumeCollection TimeReceived TimeBloodVenous blood / Yaofkdl3610/22/2024 6:34 PM EDT10/22/2024 6:39 PM EDT Narrative Authorizing ProviderResult TypeResult StatusRulaurence Nesbitt MDLAB BLOOD ORDERABLESFinal ResultPerforming OrganizationAddressCity/State/ZIP CodePhone Number [address] [place] [address], * Transfuse RBC:1 Unit (10/22/2024 5:26 PM EDT) Only the most recent of2 resultswithin the time period is included. Narrative Authorizing ProviderResult TypeResult StatusMark Lopez DOLL MAKER-CNPBLOOD TRANSFUSION ORDERABLESFinal Result * Type and screen (Pre-op) (10/21/2024 3:46 PM EDT) Only the most recent of2 resultswithin the time period is included. ComponentValueRef RangeTest MethodAnalysis TimePerformed AtPathologist Signature ABOAB10/21/2024 5:56 PM EDMERCY MEMORIAL HOSPITALRHPositive 10/21/2024 5:56 PM EDMERCY MEMORIAL HOSPITALAntibody ScreenNegative 10/21/2024 5:56 PM EDF[facility] (Source) Anatomical Location / LateralityCollection Method / VolumeCollection Time Received TimeBloodVenous blood / Ecmvdxm8410/21/2024 3:46 PM EDT10/21/2024 4:51 PM EDT Narrative Authorizing ProviderResult TypeResult StatusIgor Blanco MDBLOOD BANK TEST ORDERABLESEdited Result - FinalPerforming OrganizationAddressCity/State/ZIP Code Phone Number [address] [place] [address], [address] [place] [address], * Crossmatch RBC:Number of Units: 1 (10/21/2024 3:30 PM EDT) Only the most recent of2 resultswithin the time period is included. ComponentValueRef RangeTest MethodAnalysis TimePerformed AtPathologist Signature Blood component [id number] SANITARIUMUnit number [id number]-ACHIBATBIONAPA STATE HOSPITALUnit ABOAPROMEDNAPA STATE HOSPITALUnit RHNEGPROGARDNER SANITARIUMCrossmatch CompatiblePROKAISER FOUNDATION HOSPITALtatus of unitTRANSFUSEDPMIAMI VALLEY HOSPITALExpiration [id number] LAKE JOINT TOWNSHIP DISTRICT MEMORIAL HOSPITALBB Type Vlhsjiv1955SWPWIOHBYNATIONWIDE CHILDREN'S HOSPITALpecpiedmont mcduffie (Source) Anatomical Location / LateralityCollection Method / VolumeCollection Time Received TimeBloodVenous blood / Nypkomz9910/21/2024 3:30 PM EDT10/21/2024 5:07 PM EDT Narrative Authorizing ProviderResult TypeResult StatusKyle D Krotzer DOLL MAKER-CNPBLOOD BANK PRODUCT ORDERABLESEdited Result - FinalPerforming OrganizationAddress City/State/ZIP CodePhone Number [address] [place] [address], [place] * Potassium (10/20/2024 4:34 PM EDT) Only the most recent of5 resultswithin the time period is included. ComponentValueRef RangeTest MethodAnalysis TimePerformed AtPathologist Signature POTASSIUM3.83.5 - 5.0 mmol/L10/20/2024 5:22 PM EDTPJoint Township District Memorial Hospital (Source)Anatomical Location / LateralityCollection Method / VolumeCollection TimeReceived TimeBloodVenous blood / UnknownCentral Line / Jmddnet5810/20/2024 4:34 PM EDT10/20/2024 4:53 PM EDT Narrative Authorizing ProviderResult TypeResult StatusJanet D Caygill DOLL MAKER-CNPLAB BLOOD ORDERABLESFinal ResultPerforming OrganizationAddressCity/State/ZIP CodePhone Number [address] [place] [address], [place] * Ionized calcium (10/20/2024 4:34 PM EDT) Only the most recent of3 resultswithin the time period is included. ComponentValueRef RangeTest MethodAnalysis TimePerformed AtPathologist Signature IONIZED CALCIUM - ICAN4.74.5 - 5.3 mg/dL10/20/2024 5:02 PM EDTPJoint Township District Memorial Hospital (Source)Anatomical Location / LateralityCollection Method / VolumeCollection TimeReceived TimeBloodVenous blood / UnknownCentral Line / Wklsphr6710/20/2024 4:34 PM EDT10/20/2024 4:53 PM EDT Narrative Authorizing ProviderResult TypeResult StatusRuqidanny BARNETT BLOOD ORDERABLESFinal ResultPerforming OrganizationAddressty/State/ZIP CodePhone Number [address] [place] [address], [place] * Triglycerides (10/20/2024 4:41 AM EDT)ComponentValueRef RangeTest Method Analysis TimePerformed AtPathologist EogjmkfcvTVWIVORQFWOG34852 - 150 mg/dL 10/20/2024 9:19 AM [facility] LABORATORYSpecimen (Source) Anatomical Location / LateralityCollection Method / VolumeCollection Time Received TimeBloodVenous blood / Zzyzlqr6210/20/2024 4:41 AM EDT10/20/2024 5:02 AM EDT Narrative Authorizing ProviderResult TypeResult StatusMichael E Grillis DOLAB BLOOD ORDERABLESFinal ResultPerforming OrganizationAddressty/State/ZIP CodePhone Number [facility] [address] [place] [address], [place] [phone] * PST TOP (10/19/2024 1:00 PM EDT)ComponentValueRef RangeTest MethodAnalysis TimePerformed AtPathologist SignatureExtra TubeAuto Kjnnxgww38/06/2025 2:01 PM EDTPBRECKSVILLE VA / CRILLE HOSPITALpecime (Source)Anatomical Location / LateralityCollection Method / VolumeCollection TimeReceived TimeBloodVenous blood / Qpbtspz3910/19/2024 1:00 PM EDT10/19/2024 1:37 PM EDT Narrative Authorizing ProviderResult TypeResult StatusRulaurence BARNETT BLOOD ORDERABLESFinal ResultPerforming OrganizationAddressCity/State/ZIP CodePhone Number [address] [address], * (ABNORMAL) Lipase (10/19/2024 4:39 AM EDT) Only the most recent of6 resultswithin the time period is included. ComponentValueRef RangeTest MethodAnalysis TimePerformed AtPathologist Signature SOJRBB45(H)17 - 40 U/L10/19/2024 6:48 AM EDTPMIAMI VALLEY HOSPITAL Specimen (Source)Anatomical Location / LateralityCollection Method / Volume Collection TimeReceived TimeBloodVenous blood / Hrsaand1410/19/2024 4:39 AM EDT 10/19/2024 5:16 AM EDT Narrative Authorizing ProviderResult TypeResult StatusShashi SIBLEY BLOOD ORDERABLESFinal ResultPerforming OrganizationAddressCity/State/ZIP CodePhone Number [address] [address], * EEG (10/17/2024 5:06 PM EDT)Specimen (Source)Anatomical Location / Laterality Collection Method / VolumeCollection TimeReceived Time Narrative MANUALLY TRANSCRIBED RESULTS - 10/18/2024 12:13 PM EDT Images from the original result were not included. [place] VIDEO-EEG REPORT ? EEG Service Date: ??10/17/24 Date of Report: 10/18/24 Duration of Study: 30 minutes History: Alie Lowe is a 64 y.o. female with a history of seizure-like activity who is undergoing an EEG to evaluate for seizures and underlying epileptiform activity. Centrally acting Medications: Buspirone, Lorazepam,Hydromorphone and metoprolol Level of Consciousness: ??Awake and drowsy Technical description: This EEG was acquired with electrodes placed according to the 10-20 electrode placement system. A single EKG channel was recorded for cardiac rhythm monitoring. Video was not recorded. Quality of recording was poor. Entire study was reviewed. ?? EEG Report: Occipital dominant rhythm was seen as 7.5 Hz sinusoidal activity with amplitude of 20-40 ??V. This activity was ??symmetric, and reactive to eye closure. Most of [...] elicit any abnormal responses. Interictal/Ictal epileptiform abnormalities: ?? None Events: ??None EEG ??Classification: This EEG was obtained while awake and drowsy, and is abnormal due to: 1- Mild background slowing Clinical Correlation: This EEG recording is abnormal, indicative of mild diffuse encephalopathy. No epileptiform discharges or lateralizing signs were seen. Quality of EEG is affected by movement and dense EMG artifact - Subtle/minor abnormalities could have been missed due to poor quality. Adolfo Desouza MD Rag Room Supervisor of Neurology [facility] Authorizing ProviderResult TypeResult StatusRuqidanny Nesbitt MDNEUROLOGY ORDERABLESFinal ResultPerforming OrganizationAddressCity/State/ZIP CodePhone Number MANUALLY TRANSCRIBED RESULTS * MRCP with MRI abdomen without contrast (10/16/2024 3:45 PM EDT)Anatomical RegionLateralityModalityAbdomen, Body, Body CoveraN/AMagnetic Resonance Specimen (Source)Anatomical Location / LateralityCollection Method / Volume Collection TimeReceived Time10/16/2024 4:05 PM EDT Narrative 10/16/2024 4:12 PM EDT MRI ABDOMEN AND MRCP WITHOUT CONTRAST HISTORY: Elevated LFTs, pancreatitis COMPARISON:Abdominal ultrasound 10/15/2024, CT abdomen/pelvis 10/11/2024 TECHNIQUE: Routine multiplanar multisequence MRI abdomen and MRCP was performed without contrast. 3D reformatted volume rendered and rotation maximum intensity projection images obtained and reviewedfor evaluation of the pancreatic and biliary ductal [...] No enlarged abdominal lymph nodes. IMPRESSION: * ??Study compromised by motion artifact. * ??Dilated common bile duct measuring 1.0 cm with findings suspicious for some sludge in the distal CBD. A definitive stone is not seen in the CBD, however study is significantly compromised by motion artifact (particularly the MRCP images). * ??Distended gallbladder containing layering sludge. * ?? Extensive peripancreatic inflammation/fluid related to known pancreatitis. Small amount of right perihepatic fluid and fluid in the pelvis as well. * ??Small right pleural effusion. Finalized by Tommy Michelle [...] Tommy Michelle MD on 10/16/2024 4:12 PM Authorizing ProviderResult TypeResult StatusA[facility]a [facility] Fallsl Carlitos Eric [facility] MRI ORDERABLESFinal Result * MR brain without contrast (10/16/2024 2:46 PM EDT)Anatomical RegionLaterality ModalityNeuro, Head, Head and Neck, Neuro CoveraN/AMagnetic ResonanceSpecimen (Source)Anatomical Location / LateralityCollection Method / VolumeCollection TimeReceived Time10/16/2024 2:49 PM EDT Narrative 10/16/2024 2:51 PM EDT HISTORY: A 64-year-old female with a history of the altered mental status. TECHNIQUE: ??Multiplanar and multisequence MRI examination of brain is performed without intravenous contrast administration. COMPARISON: ??Comparison is made with the CT scan of the brain of 10/11/2024. FINDINGS: Examination is compromised due to motion artifacts. Facet and technique was utilized. The ventricular system is normal in size and configuration. There is normal differentiation of grayand white matters. Diffusion-weighted study demonstrates no evidence [...] Visualized paranasal sinuses are clear. IMPRESSION: * ??No evidence of restricted diffusion to suggest acute or subacute age of infarction. * ??No evidence of intracranial mass, focal signal abnormality [...] Zenon Doss MD on 10/16/2024 2:51 PM Authorizing ProviderResult TypeResult StatusSarashania Burk DOLL MAKER-CNPIMG MRI ORDERABLESFinal Result * (ABNORMAL) Hemoglobin (10/16/2024 8:49 AM EDT)ComponentValueRef RangeTest MethodAnalysis TimePerformed AtPathologist SignatureHemoglobin7.0(L)11.7 - 15.5 g/dL10/16/2024 9:03 AM EDTPBRECKSVILLE VA / CRILLE HOSPITALpecimen (Source)Anatomical Location / LateralityCollection Method / VolumeCollection TimeReceived TimeBloodVenous blood / UnknownVenipuncture / Yblszik4910/16/2024 8:49 AM EDT10/16/2024 8:52 AM EDT Narrative Authorizing ProviderResult TypeResult StatusMadison Shady Landry DOLL MAKER-CNPLAB BLOOD ORDERABLESFinal ResultPerforming OrganizationAddressCity/State/ZIP Code Phone Number [facility] [address] [place] [address], [place] * ABO Rh Repeat (10/16/2024 7:00 AM EDT)ComponentValueRef RangeTest Method Analysis TimePerformed AtPathologist SrhzsdbfgSPORY00/03/2025 1:09 PM EDT [facility]OS[facility]ITALRHPositive10/16/2024 1:09 PM EDTPROMEDKAISER MARTINEZ MEDICAL CENTERpecimen (Source)Anatomical Location / Laterality Collection Method / VolumeCollection TimeReceived TimeBloodVenous blood / UnknownVenipuncture / Vzyjbox6410/16/2024 7:00 AM EDT10/16/2024 12:08 PM EDT Narrative Authorizing ProviderResult TypeResult StatusRulaurence Nesbitt MDBLOOD BANK TEST ORDERABLESFinal ResultPerforming OrganizationAddressCity/State/ZIP CodePhone Number [facility] [address] [place] [address], [place] [address] [place] [address], [place] * Echo complete W/O contrast (10/15/2024 4:25 PM EDT)ComponentValueRef RangeTest MethodAnalysis TimePerformed AtPathologist SignatureLVOT stroke .40ml XCELERALV Systolic Lfazew16.97nPXPZNXAATE59%YHYKJHSQJ6927 - 44 %XCELERALV Diastolic Ryxudd571.39vMZMKDJNEQAOAu9.303.72 - 5.16 cmXCELERALVIDs4.102.21 - 3.34 cmXCELERAIVS0.600.6 - 1.1 cmXCELERAPW1.200.6 - 1.1 cmXCELERALVOT diameter 2.90gkQSCWGPKTPK3.81cm/sXCELERAMV TDI E' (medial)5.44cm/sXCELERALA Volume Index32.0mL/v6CKFRUVSL/A ratio1.17XCELERAE wave deceleration eosg620.00msec XCELERAMV Peak E Vel96.70cm/sXCELERAMV Peak A Vel82.50cm/sXCELERALA size3.80cm XCELERAAortic root3.00cmXCELERALA buvawu83.09uf4XAJFMOSPL diastolic dimension (basal)30.0mmXCELERARVID d3.3awOAVILPPZDCUL6.04cmXCELERAAV peak byd914.00cm/s XCELERALVOT peak vel1.07m/sXCELERAAV VTI30.20cmXCELERALVOT peak VTI24.00cm XCELERAAV mean gradient5.00mmHgXCELERAAV peak gradient9.36mmHgXCELERAAV valve area2.50XCELERAValve area - Index1.8XCELERAMV pressure 1/2 time36.00msXCELERA MV valve area p 1/2 method6.44qd4ZJVUTUOQZ Peak Vel2.1m/sXCELERATR peak uynytwha35.47mmHgXCELERAPV mean gradient2.00mmHgXCELERAPV peak gradient4.16 mmHgXCELERALV ESV A2C55.50mLXCELERALV ESV A4C32.40mLXCELERALV RWT 2D45.28 XCELERAEcho EF Apxcoezgj37%XCELERAAV Velocity Ratio0.79XCELERALeft Ventricle Quff531.306667404623675oJFEJRBZEthiiphzxjxdkezf Septum Diastolic Thickness by 8D8agPTDOLHXXM area10.5sd1GUAPSOSXC Peak Systolic Xfjsneak25iwUgAXIZGSOFZMSPZ 3.34VQGWIUESHQWWY6.91XCELERAEnergy loss index10.17XCELERAAnatomical Region LateralityModalityChestN/AUltrasoundSpecimen (Source)Anatomical Location / LateralityCollection Method / VolumeCollection TimeReceived Time Narrative 10/15/2024 5:41 PM EDT Left Ventricle: Left ventricle is mildly dilated. Systolic function is mildly to moderately decreased with an ejection fraction of 40-45%. The quantitative EF by 2D Rangel biplane is 44%. ?Right??Ventricle: Right ventricular size appears normal. Systolic function is normal. ?Mitral??Valve: There is mild to moderate regurgitation. There is no evidence of mitral valve stenosis. ?Pulmonic??Valve: There is mild regurgitation. There is no evidence of pulmonic valve stenosis. ?Tricuspid??Valve: There is trace to mild regurgitation. There [...] mitral valve posterior leaflet is calcified and demonstratesrestricted mobility. There is mild to moderate regurgitation. [...] mid anterolateral. All other segments are normal. Authorizing ProviderResult TypeResult StatusMark Lopez DOLL MAKER-CNPCV ECHO ORDERABLESFinal Result * (ABNORMAL) Thiamin (Vitamin B1), WB (10/15/2024 1:20 PM EDT)ComponentValueRef RangeTest MethodAnalysis TimePerformed AtPathologist SignatureTHIAMIN (VITAMIN B1), WB270(H)70 - 180 nmol/L10/17/2024 4:21 AM EDTMSTONESPRINGS H[facility]ITAL [facility] Comment: ADDITIONAL INFORMATION This test was developed and its performance characteristics determined by [facility] in a manner consistent with CLIA requirements. This test has not been cleared or approved by the U.S. Food and Drug Administration. Test Performed by: [facility] [place] [address] Motor Overhauler: Ester Macdonald Ph.D.; CLIA# [id number] Specimen (Source)Anatomical Location / LateralityCollection Method / Volume Collection TimeReceived TimeBloodVenous blood / UnknownVenipuncture / Unknown 10/15/2024 1:20 PM EDT10/15/2024 1:33 PM EDT Narrative Authorizing ProviderResult TypeResult StatusKirti Burk DOLL MAKER-CNPLAB BLOOD ORDERABLESFinal ResultPerforming OrganizationAddressCity/State/[place] [address], * Thyroid profile includes TSH FT4 (10/15/2024 12:34 PM EDT)ComponentValueRef RangeTest MethodAnalysis TimePerformed AtPathologist SignatureFREE T40.880.61 - 1.60 ng/dL10/15/2024 1:24 PM EDTPROMEDICA COALINGA STATE HOSPITALTSH1.37 0.49 - 4.67 uIU/mL10/15/2024 1:24 PM EDMER[facility] Specimen (Source)Anatomical Location / LateralityCollection Method / Volume Collection TimeReceived TimeBloodVenous blood / UnknownVenipuncture / Unknown 10/15/2024 12:34 PM EDT10/15/2024 12:45 PM EDT Narrative Authorizing ProviderResult TypeResult StatusSarah B Burk DOLL MAKER-CNPLAB BLOOD ORDERABLESFinal ResultPerforming OrganizationAddressCity/State/ZIP CodePhone Number [address] [place] [address], [place] * (ABNORMAL) Sodium (10/15/2024 12:34 PM EDT)ComponentValueRef RangeTest Method Analysis TimePerformed AtPathologist LrbugzwzkEBRYFD437(H)134 - 146 mmol/L 10/15/2024 1:47 PM EDMETROHEALTH CLEVELAND HEIGHTS MEDICAL CENTERpecimen (Source) Anatomical Location / LateralityCollection Method / VolumeCollection Time Received TimeBloodVenous blood / UnknownVenipuncture / Xmerwuh6210/15/2024 12:34 PM EDT10/15/2024 12:45 PM EDT Narrative Authorizing ProviderResult TypeResult StatusRulaurence Nesbitt MDLAB BLOOD ORDERABLESFinal ResultPerforming OrganizationAddressCity/State/ZIP CodePhone Number [address] [place] [address], [place] * Folate (10/15/2024 12:34 PM EDT)ComponentValueRef RangeTest MethodAnalysis TimePerformed AtPathologist SignatureFOLIC ACID12.7>5.8 ng/mL10/15/2024 7:30 PM [facility]ORATORYSpecimen (Source)Anatomical Location / LateralityCollection Method / VolumeCollection TimeReceived TimeBloodVenous blood / UnknownVenipuncture / Nhkkbwl2910/15/2024 12:34 PM EDT10/15/2024 12:45 PM EDT Narrative Authorizing ProviderResult TypeResult StatusSarah B Burk DOLL MAKER-CNPLAB BLOOD ORDERABLESFinal ResultPerforming OrganizationAddressCity/State/ZIP CodePhone Number [facility] [address] [place] [address], [place] [phone] * Ultrasound abdomen limited (10/15/2024 10:56 AM EDT)Anatomical Region LateralityModalityBody, AbdomenUltrasoundSpecimen (Source)Anatomical Location / LateralityCollection Method / VolumeCollection TimeReceived Time10/15/2024 11:03 AM EDT Narrative 10/15/2024 11:05 AM EDT [...] sign negative. Right pleural effusion. IMPRESSION: * ??Gallbladder sludge without other sonographic evidence of acute cholecystitis. * ??Borderline dilated CBD. * ??Right pleural effusion. Finalized by Bakari Roach on [...] by Bakari Roach on 10/15/2024 11:05 AM Authorizing ProviderResult TypeResult StatusShashi Carlitos Beecurry DOIMG ORDERABLESFinal Result * (ABNORMAL) Vitamin B12 (10/15/2024 5:23 AM EDT)ComponentValueRef RangeTest MethodAnalysis TimePerformed AtPathologist SignatureVITAMIN B12>1,500(H)180 - 914 pg/mL10/15/2024 2:24 PM [facility] LABORATORYSpecimen (Source)Anatomical Location / LateralityCollection Method / VolumeCollection TimeReceived TimeBloodVenous blood / UnknownVenipuncture / Puaeczj0010/15/2024 5:23 AM EDT10/15/2024 6:37 AM EDT Narrative Authorizing ProviderResult TypeResult StatusKirti Burk DOLL MAKER-CNPLAB BLOOD ORDERABLESFinal ResultPerforming OrganizationAddressCity/State/ZIP CodePhone Number [facility] [address] [place] [address], * (ABNORMAL) Iron and TIBC (10/14/2024 10:39 PM EDT)ComponentValueRef RangeTest MethodAnalysis TimePerformed AtPathologist LftlfqlxwKSCT429(H)50 - 170 ug/dL 10/15/2024 10:10 AM [facility] SBBGWUQRTHVATLYTCBMNZ560154 - 336 mg/dL10/15/2024 10:10 AM [facility] LABORATORYIRON QHZQWOB467(L)250 - 425 ug/dL10/15/2024 10:10 AM [facility] LABORATORYIRON YMFPCDOPZY385(H)15 - 50 % LFEJIFOFQV78/02/2025 10:10 AM EDT [facility]YSpecimen (Source)Anatomical Location / LateralityCollection Method / VolumeCollection TimeReceived TimeBloodVenous blood / UnknownVenipuncture / Kisscdm1810/14/2024 10:39 PM EDT10/14/2024 10:46 PM EDT Narrative Authorizing ProviderResult TypeResult StatusRuqidanny Nesbitt MDLAB BLOOD ORDERABLESFinal ResultPerforming OrganizationAddressCity/State/ZIP CodePhone Number [facility] [address] [place] [address], * Ferritin (10/14/2024 10:39 PM EDT)ComponentValueRef RangeTest MethodAnalysis TimePerformed AtPathologist JlnmsepswDFOSHDWC64962 - 307 ng/mL10/15/2024 10:24 AM [facility]OR[facility]YSpecimen (Source)Anatomical Location / LateralityCollection Method / VolumeCollection TimeReceived TimeBloodVenous blood / UnknownVenipuncture / Qvttirk9810/14/2024 10:39 PM EDT10/14/2024 10:46 PM EDT Narrative Authorizing ProviderResult TypeResult StatusRuqidanny Nesbitt [facility] BLOOD ORDERABLESFinal ResultPerforming OrganizationAddressCity/State/ZIP CodePhone Number [facility] [address] [place] [address], * Ammonia (10/14/2024 11:11 AM EDT)ComponentValueRef RangeTest MethodAnalysis TimePerformed AtPathologist LzgxgrhzlEBKUCHF8289 - 35 umol/L10/14/2024 11:32 AM EDSelect Medical TriHealth Rehabilitation Hospitaln (Source)Anatomical Location / LateralityCollection Method / VolumeCollection TimeReceived TimeBloodVenous blood / UnknownVenipuncture / Hqhwfcf6310/14/2024 11:11 AM EDT10/14/2024 11:13 AM EDT Narrative Authorizing ProviderResult TypeResult StatusTadell VEGA BLOOD ORDERABLESFinal ResultPerforming OrganizationAddressCity/State/ZIP CodePhone Number [facility] [address] [place] [address], * (ABNORMAL) POCT Ionized Calcium (10/14/2024 8:51 AM EDT) Only the most recent of2 resultswithin the time period is included. ComponentValueRef RangeTest MethodAnalysis TimePerformed AtPathologist Signature POC Ionized Calcium4.2(L)4.5 - 5.3 mg/dL10/14/2024 8:57 AM EDTPKettering Health Hamiltonimen (Source)Anatomical Location / LateralityCollection Method / VolumeCollection TimeReceived Time10/14/2024 8:51 AM EDT10/14/2024 8:57 AM EDT Narrative Authorizing ProviderResult TypeResult StatusLoan Adela Laz MDPOINT OF CARE TEST ORDERABLESFinal ResultPerforming OrganizationAddressCity/State/ZIP Code Phone Number [address] [place] [address], [place] * Light Blue Top (10/14/2024 6:57 AM EDT) Only the most recent of3 resultswithin the time period is included. ComponentValueRef RangeTest MethodAnalysis TimePerformed AtPathologist Signature Extra TubeAuto Khdsoioo80/01/2025 8:01 AM [facility] Specimen (Source)Anatomical Location / LateralityCollection Method / Volume Collection TimeReceived TimeBloodVenous blood / Axbasxg1810/14/2024 6:57 AM EDT 10/14/2024 7:01 AM EDT Narrative Authorizing ProviderResult TypeResult StatusCarolina Mccarthy MDLAB BLOOD ORDERABLESFinal ResultPerforming OrganizationAddressCity/State/ZIP CodePhone Number [address] [place] [address], [place] * Hepatitis panel, acute (10/14/2024 6:57 AM EDT)ComponentValueRef RangeTest MethodAnalysis TimePerformed AtPathologist SignatureHEPATITIS B SURF AG Gvk-BeoyftwiVbh-Jpfguiwv30/01/2025 11:42 PM [facility] LABORATORYHEPATITIS A VHUJhc-SzlfnlniJsq-Rsxmxcwz97/01/2025 11:42 PM [facility] LABORATORYHEPATITIS B CORE AKOUtz-ZsefzutiIhy-Krdwvbwa 10/14/2024 11:42 PM [facility] LABORATORYANTI HCV W/PCR REFLX Wkh-TkwmolfxJle-Yypmuzyp88/01/2025 11:42 PM [facility] LABORATORYComment: If recent infection suspected, recommend repeat testing (>2 months). Ldotao-jy-kommxr ratio is <1.0. Specimen (Source)Anatomical Location / LateralityCollection Method / Volume Collection TimeReceived TimeBloodVenous blood / UnknownVenipuncture / Unknown 10/14/2024 6:57 AM EDT10/14/2024 7:00 AM EDT Narrative Authorizing ProviderResult TypeResult StatusTaeler Eddy DOLL MAKER-CNPLAB BLOOD ORDERABLESFinal ResultPerforming OrganizationAddressCity/State/ZIP CodePhone Number [facility] [address] [place] [address], [place] [phone] * (ABNORMAL) Troponin I, High Sensitivity 3 Hour (10/12/2024 10:01 AM EDT) ComponentValueRef RangeTest MethodAnalysis TimePerformed AtPathologist SignatureTROPONIN I, HIGH SUFFDZVTEIP20(H)<16 ng/L10/12/2024 10:32 AM EDT [facility] ([facility])Anatomical Location / LateralityCollection Method / VolumeCollection TimeReceived TimeBloodVenous blood / UnknownVenipuncture / Gicligx9110/12/2024 10:01 AM EDT10/12/2024 10:04 AM EDT Narrative [facility] - 10/12/2024 10:32 AM EDT Elevations of hs-Troponin may be due to causes other than myocardial ischemia. Recommend serial hs-Troponin testing be performed. For the initial evaluation and management of chest pain patients, refer to the algorithms linked below. Emergency Patient: [email or web address] Inpatient: [email or web address] Authorizing ProviderResult TypeResult StatusKyle Lorena Lopez DOLL MAKER-CNPLAB BLOOD ORDERABLESFinal ResultPerforming OrganizationAddressCity/State/ZIP CodePhone Number [facility] [address] [place] [address], [place] * Lactate w/ Reflex (10/12/2024 10:01 AM EDT) Only the most recent of3 resultswithin the time period is included. ComponentValueRef RangeTest MethodAnalysis TimePerformed AtPathologist Signature LACTATE W/REFLEX1.00.4 - 2.0 mmol/L10/12/2024 10:22 AM [facility]TPROM[facility]pecimen (Source)Anatomical Location / LateralityCollection Method / VolumeCollection TimeReceived TimeBloodVenous blood / Unknown Venipuncture / Hwlhigg4010/12/2024 10:01 AM EDT10/12/2024 10:04 AM EDT Narrative [facility] - 10/12/2024 10:22 AM EDT Result did not trigger repeat Lactate, re-order if needed. Authorizing ProviderResult TypeResult StatusKyle D John DOLL MAKER-CNPLAB BLOOD ORDERABLESFinal ResultPerforming OrganizationAddressCity/State/ZIP CodePhone Number [facility] [address] [place] [address], [place] * CT brain without contrast (10/11/2024 9:52 PM EDT)Anatomical RegionLaterality ModalityNeuro, Head, Head and Neck, Neuro CoveraN/AComputed TomographySpecimen (Source)Anatomical Location / LateralityCollection Method / VolumeCollection TimeReceived Time10/11/2024 10:04 PM EDT Narrative 10/11/2024 10:06 PM EDT STUDY: CT HEAD WITHOUT CONTRAST CLINICAL HISTORY: Change in mental status COMPARISON: Head CT dated 09/12/2024. TECHNIQUE: Multidetector axial images are obtained through the head. Automated exposure control wasutilized. FINDINGS: No acute intracranial hemorrhage, midline shift or mass effect. ??Ventricular and cistern spaces are normal and symmetric. ??Alexandre and white matter differentiation is well preserved. ??No intra or extra-axial fluid collections or mass occupying lesions. ??Bilateral cerebellopontine angles are grossly unremarkable. ??Visualized orbital contents are normal. ??Study reviewed in bone windows shows no abnormalities. ??All visualized sinuses are normally aerated. ??Bilateral temporomandibular joints are normally aligned. IMPRESSION: No [...] Deepika Field MD on 10/11/2024 10:06 PM Authorizing ProviderResult TypeResult StatusMatthew J White [facility] CT ORDERABLES Final Result * CT abdomen and pelvis with contrast (10/11/2024 8:24 PM EDT)Anatomical Region LateralityModalityBody, Abdomen, Body CoveraN/AComputed TomographySpecimen (Source)Anatomical Location / LateralityCollection Method / VolumeCollection TimeReceived Time10/11/2024 8:51 PM EDT Narrative 10/11/2024 8:52 PM EDT STUDY: ABDOMEN AND PELVIS CT WITH CONTRAST CLINICAL HISTORY: Acute abdominal pain abdominal pain; abnormal LFTs COMPARISON: 09/16/2024 TECHNIQUE: CT abdomen and pelvis was performed utilizing 5 mm axial reconstructions following the uneventful administration of 100 cc Omnipaque 300 nonionic intravenous contrast. Coronal and sagittalreformatted [...] reconstructions following the uneventful administration of 100 ccOmnipaque [...] Shashi Blair MD on 10/11/2024 8:52 PM Authorizing ProviderResult TypeResult StatusMatthew Palomo Alonso DOIMG CT ORDERABLES Final Result * CT cervical spine without contrast (10/11/2024 8:24 PM EDT)Anatomical Region LateralityModalityMSK, Neuro, Spine, C-spine, Spine CoveraN/AComputed TomographySpecimen (Source)Anatomical Location / LateralityCollection Method / VolumeCollection TimeReceived Time10/11/2024 8:33 PM EDT Narrative 10/11/2024 8:36 PM EDT Exam: Cervical spine CT without contrast dated 10/11/2024. HISTORY: Neck pain. ?? COMPARISON: Cervical spine CT dated 05/07/2024. TECHNIQUE: Multidetector axial images with coronal and sagittal reconstructions performed at the CTscanner are obtained through the cervical spine. FINDINGS: Atlantooccipital alignment is normal. ??Cervical vertebral bodies, facets, spinous processes are normally aligned. Vertebral body heights are maintained at all levels. ?? No perivertebral soft tissue masses or abnormal fluid collections. ??Lung apices are unremarkable. IMPRESSION: No CT evidence [...] Deepika Field MD on 10/11/2024 8:36 PM Authorizing ProviderResult TypeResult StatusRanjana Braun DOIMG CT ORDERABLES Final Result * (ABNORMAL) Lactate (10/11/2024 8:05 PM EDT)ComponentValueRef RangeTest Method Analysis TimePerformed AtPathologist SignatureLACTATE2.7(H)0.4 - 2.0 mmol/L 10/11/2024 8:23 PM EDTPBRECKSVILLE VA / CRILLE HOSPITALpecimen (Source) Anatomical Location / LateralityCollection Method / VolumeCollection Time Received TimeBloodVenous blood / UnknownVenipuncture / Rtrnsnb6310/11/2024 8:05 PM EDT10/11/2024 8:06 PM EDT Narrative Authorizing ProviderResult TypeResult StatusRanjana Braun DOLAB BLOOD ORDERABLESFinal ResultPerforming OrganizationAddressCity/State/ZIP CodePhone Number [facility] [address] * (ABNORMAL) POCT Nursing Urine Macroscopic UA (10/11/2024 5:40 PM EDT)Component ValueRef RangeTest MethodAnalysis TimePerformed AtPathologist SignatureWH[facility] Urine Specific Gravity1.0201.010, 1.015, 1.020, 1.5239710/11/2024 5:29 PM EDT [facility] Urine Leukocyte EsteraseNegative Tcldmddk06/29/2025 5:29 PM [facility] Urine EmnpkzuQowlrjevUayvxgpk16/29/2025 5:29 PM [facility] Urine pH6.55.0, 6.0, 6.5, 7.0, 7.5, 8.0, 8.5, 5.508 5:29 PM [facility] Urine Pycgwth981 mg/dL(A)Negative 10/11/2024 5:29 PM [facility] Urine Sgejkep511 mg/dL(A)Vsosnmzx41/29/2025 5:29 PM [facility] Urine Vbngnre90 mg/dL(A)Kpkfwjth75/29/2025 5:29 PM [facility] Urine Urobilinogen0.2 E.U./dL10/11/2024 5:29 PM EDT [facility] Urine BilirubinSmall(A)Negative 10/11/2024 5:29 PM [facility] Urine Blood/HGB FndrfzvyBtvzsiqk89/29/2025 5:29 PM [facility] Specimen (Source)Anatomical Location / LateralityCollection Method / Volume Collection TimeReceived GvfrMamwh11/29/2025 5:40 PM EDT10/11/2024 5:29 PM EDT Narrative Authorizing ProviderResult TypeResult StatusRanjana Braun DOPOINT OF CARE TEST ORDERABLESFinal ResultPerforming OrganizationAddressCity/State/ZIP Code Phone Number [address] [place] [address], [place] * Extra Urine [place] (10/11/2024 5:30 PM EDT)ComponentValueRef RangeTest Method Analysis TimePerformed AtPathologist SignatureExtra TubeAuto Resulted 10/11/2024 7:01 PM [facility] (Source) Anatomical Location / LateralityCollection Method / VolumeCollection Time Received TimeUrineUrine specimen collection, clean catch / Hkmbpiq4410/11/2024 5:30 PM EDT10/11/2024 5:52 PM EDT Narrative Authorizing ProviderResult TypeResult StatusRanjana Braun DOURINE ORDERABLES Final ResultPerforming OrganizationAddressCity/State/ZIP CodePhone Number [address] [place] [address], [place] * Extra Urine Culture (10/11/2024 5:30 PM EDT)ComponentValueRef RangeTest Method Analysis TimePerformed AtPathologist SignatureExtra TubeAuto Resulted 10/11/2024 7:01 PM [facility] (Source) Anatomical Location / LateralityCollection Method / VolumeCollection Time Received TimeUrineUrine specimen collection, clean catch / Xbnpuha3210/11/2024 5:30 PM EDT10/11/2024 5:52 PM EDT Narrative Authorizing ProviderResult TypeResult StatusRanjana Braun DOURINE ORDERABLES Final ResultPerforming OrganizationAddressty/State/ZIP CodePhone Number [address] [place] [address], * Extra Urine (10/11/2024 5:30 PM EDT)ComponentValueRef RangeTest MethodAnalysis TimePerformed AtPathologist SignatureExtra TubeAuto Ethedbmn66/29/2025 7:01 PM EDMETROHE[facility]ENTERpecimen (Source)Anatomical Location / LateralityCollection Method / VolumeCollection TimeReceived TimeUrineUrine specimen collection, clean catch / Tjgnips0510/11/2024 5:30 PM EDT10/11/2024 5:52 PM EDT Narrative Authorizing ProviderResult TypeResult StatusRanjana Beltran [place] DOURINE ORDERABLES Final ResultPerforming OrganizationAddressty/State/ZIP CodePhone Number [address] [place] [address], [place] * Drug Screen, Urine (10/11/2024 5:30 PM EDT)ComponentValueRef RangeTest Method Analysis TimePerformed AtPathologist SignatureAMPHETAMINE/METHAMPNegative Jctlkzsx41/29/2025 6:26 PM [facility] AMPH/METH screening cut off = 1000 ng/mLCOCAINE METABOLITENegativeNegative 10/11/2024 6:26 PM [facility]:Cocaine screening cut off value = 300 ng/eRVZGBGVBLpmhpwzaSlnqziwk84/29/2025 6:26 PM [facility]:Ecstasy screening cut off value = 500 ng/mDEQRKAVQGFZqumnxdtPsgoqgow00/29/2025 6:26 PM [facility]:Methadone screening cut off value = 300 ng/mL.OPIATES CltcxxrfSbmqontl95/29/2025 6:26 PM [facility] Comment: Opiates screening cut off value = 300 ng/mL This test is used for the detection of codeine, hydrocodone (>1000 ng/mL), morphine and hydromorphone (>900 ng/mL) in urine. JFUNEXGODUgkwruqaPzztmyqy61/29/2025 6:26 PM [facility]: Oxycodone screening cut off value = 300 ng/mL This test is used for the detection of oxycodone and oxymorphone in urine. SCSLRATNDSMJZEsvuxtywAtnxtjkd16/29/2025 6:26 PM [facility]:Phencyclidine screening cut off value = 25 ng/mLCANNABINOIDS UkgiymcgWtvwteqp13/29/2025 6:26 PM [facility] Comment:Cannabinoids/THC screening cut off value = 50 ng/mLUrine Barbiturates YfgovtgfZjllyaxk31/29/2025 6:26 PM [facility] Comment:Barbiturates screening cut off value = 200 ng/mLBENZODIAZEPINESNegative Lmagwzpx50/29/2025 6:26 PM [facility] Benzodiazepines screening cut off value = 200 ng/mLSpecimen (Source)Anatomical Location / LateralityCollection Method / VolumeCollection TimeReceived TimeUrine 10/11/2024 5:30 PM EDT10/11/2024 5:52 PM EDT Narrative Authorizing ProviderResult TypeResult StatusRanjana Braun DOURINE ORDERABLES Final ResultPerforming OrganizationAddressCity/State/ZIP CodePhone Number [facility] [address] [place] [address], * Lavender Top On Ice (10/11/2024 4:15 PM EDT)ComponentValueRef RangeTest Method Analysis TimePerformed AtPathologist SignatureExtra TubeAuto Resulted 10/11/2024 6:01 PM [facility] ([facility]) Anatomical Location / LateralityCollection Method / VolumeCollection Time Received TimeBloodVenous blood / Wesqwxa8310/11/2024 4:15 PM EDT10/11/2024 4:21 PM EDT Narrative Authorizing ProviderResult TypeResult StatusMarradha Braun DOLAB BLOOD ORDERABLESFinal ResultPerforming OrganizationAddressCity/State/ZIP CodePhone Number [place] [address] [place] [address], [place] * (ABNORMAL) Troponin I, High Sensitivity 1 Hour (10/11/2024 4:15 PM EDT) ComponentValueRef RangeTest MethodAnalysis TimePerformed AtPathologist SignatureTROPONIN I, HIGH NZXSWFFDFOL45(H)<16 ng/L10/11/2024 4:49 PM EDT [facility] (Source)Anatomical Location / LateralityCollection Method / VolumeCollection TimeReceived TimeBloodVenous blood / UnknownVenipuncture / Nwbsteo2910/11/2024 4:15 PM EDT10/11/2024 4:18 PM EDT Narrative [facility] - 10/11/2024 4:49 PM EDT Elevations of hs-Troponin may be due to causes other than myocardial ischemia. Recommend serial hs-Troponin testing be performed. For the initial evaluation and management of chest pain patients, refer to the algorithms linked below. Emergency Patient: [email or web address] Inpatient: [email or web address] Authorizing ProviderResult TypeResult StatusMarradha Braun [facility] BLOOD ORDERABLESFinal ResultPerforming OrganizationAddressCity/State/ZIP CodePhone Number [address] [place] [address], [place] * (ABNORMAL) Troponin I, High Sensitivity 0 Hour (10/11/2024 3:00 PM EDT) ComponentValueRef RangeTest MethodAnalysis TimePerformed AtPathologist SignatureTROPONIN I, HIGH RKVCHELZVCY31(H)<16 ng/L10/11/2024 3:49 PM EDT [facility] (Source)Anatomical Location / LateralityCollection Method / VolumeCollection TimeReceived TimeBloodVenous blood / UnknownVenipuncture / Wlpkxrc34/ 3:00 PM EDT10/11/2024 3:06 PM EDT Narrative Authorizing ProviderResult TypeResult StatusRanjana Ruby Braun DOLAB BLOOD ORDERABLESFinal ResultPerforming OrganizationAddressCity/State/ZIP CodePhone Number [facility] [address] [place] [address], * ECG 12 lead (10/11/2024 2:13 PM EDT)Specimen (Source)Anatomical Location / LateralityCollection Method / VolumeCollection TimeReceived Time10/11/2024 2:13 PM EDT Narrative Authorizing ProviderResult TypeResult StatusRatnaradha Braun DOECG ORDERABLES Final ResultPerforming OrganizationAddressCity/State/ZIP CodePhone Number [facility] from Last 3 Months Insurance [address] [place] [address] * Guarantor: Alie Lowe TypeRelation to PatientDate of PhoneBilling AddressPersonal/XjbolsWkeg31/11/1961 [address] [phone] Advance Directives * Full Code (Latest Code Status on File) Date ActivatedDate InactivatedComments10/11/2024 10:10 PM10/25/2024 3:16 PM * Full Code Date ActivatedDate InactivatedComments09/12/2024 10:28 PM09/18/2024 8:15 PM * Full Code Date ActivatedDate InactivatedComments05/08/2024 7:31 AM05/18/2024 9:39 PM * Full Code Date ActivatedDate InactivatedComments05/07/2024 4:02 PM05/07/2024 5:32 PM Care Teams Team MemberRelationshipSpecialtyStart DateEnd Date Services, [facility] [address] [place], [place] PCP - GeneralFamily Medicine05/07/24
--- OUTSIDE RECORDS SUMMARY | 2024-12-26 13:18 | XMS_ITS | CCD ---
Author Organization [facility] Inform ion Partnership [facility] Care Team Providers Care Enroute Controller Name Role Phone MD Sandra Branch Admit Provider [phone] MD Sandra Branch Attending Provider [phone] MD Igor Holliday Primary Care Provider [phone] DONTE Hawthorne Other Provider Unavailable DONTE Robles Other Provider Unavailable DONTE Tyler Other Provider Unavailable DONTE Luong Other Provider Unavailable DONTE Waters Other Provider Unavailable DONTE Yancey Other Provider Unavailable DONTE Pinto Other Provider Unavailable MD Bulmaro Alvarado Other Provider MD Christiano Smith Other Provider Cj, CHIEF BANK EXAMINER Arlin Doyle Other Provider [phone] DO Aure Chavez Other Provider [phone] MD Hernandez Martines Other Provider DO Abilio Jackman Other Provider [phone] MD Markus Calzada Other Provider [phone] MD Lynn Silva Other Provider CHECO Barber-EDEN Larios Other Provider MD Patricia Gama Other Provider MD Julio Jimenez Other Provider MD Makeda Gan Other Provider MD Leyla Corona Other Provider MD Barrett Hall Other Provider MD Raghav Isidro Other Provider MD Bharath Cedeno Other Provider MD Christophe Thomas Other Provider JC Viveros Other Provider MD Tuan Bettencourt Other Provider MD Freedom Casas Other Provider MD Miles Galicia Other Provider Unavailable MD Kym Ward Other Provider MD Jaya Brito Other Provider MD Macario Disla Other Provider DO Carla Fountain Other Provider MD Berry Coates Other Provider DO Hamlet Avitia Other Provider DO Jose Ivy Other Provider MIKAELA Juan Other Provider DONTE Castillo Other Provider Unavailable Igor Holliday Primary Care Unavailable Neil Brancha Attending Unavailabl Neil Eliasa Admitting Unavailabl Alexandra Kirkland Consulting Unavailable Myrna Robles Consulting Unavailable Gale Tyler Consulting Unavailable Joan Luong Consulting Unavailable Daphne Waters Consulting Unavailable Zeynep Yancey Consulting Unavailable Kallie Pinto Consulting Unavailable Bulmaro Alvarado Consulting Unavailable LuisChristiano K Consulting Unavailable Arlin Corona Consulting Unavailable Aure Chavez Consulting Unavailable Conrad Hernandez Consulting Unavailable Abilio Jackman Consulting Unavailabl Markus Stapleton Consulting Unavailable Ricardo Lynn Consulting Unavailable Harriet Barber Consulting Unavailable Patricia Gama Consulting Unavailable Julio Jimenez Consulting Unavailable Makeda Gan Consulting Unavailable Leyla Corona Consulting Unavailable Barrett Hall Consulting Unavailable Raghav Isidro Consulting Unavailable Bharath Cedeno Consulting Unavailable Christophe Thomas Consulting Unavailable Argenis Viveros Consulting Unavailable DoamekporTuan E Consulting Unavailab le Augusto, Freedom Consulting Unavailable Miles Galicia Consulting Unavailable Ed, Kym Consulting Unavailable Daryl, Jaya Consulting Unavailable Ghanbari Rostamabadi, Macario Consulting Vidhya Carla Solorio Consulting Unavailable Al Salti Berry Beyer Consulting Unavailab Hamlet Cool Consulting Unavailable Jose Iyv Consulting Unavailable Obika, Jessie Consulting Unavailable Elisa Castillo Consulting Unavailable Samuel VAN, Latha Beltran Primary Care Provider Services, [facility] Primary Care Provider PROVIDER, UNKNOWN Attending Unavailable PROVIDER, UNKNOWN Admitting Unavailable Services, [facility] Provider Caty VAN, [facility] Primary Care Provider ART BLUE Attending Unavailable MERE MONTEIRO Referring Unavailable VIVIANA MCCLOUD Attending Unavailable MAYA LUCIANO Admitting Unavailable GIOVANNI HDEZ Referring Unavailable SERVICES, [facility] Unava ilable BERRY SAEZ Consulting Unavailable [facility] Unavailable PRACHI WEI Consulting Unavailable HOLLY HIDALGO Consulting Unavailable GURINDER ESPINAL Attending Unavailable GURINDER ESPINAL Referring Unavailable SERVICES, [facility] Unava ilable MAHDI, AHMAD Referring Unavailable SERVICES, [facility] Unava ilable MAHDI, AHMAD Referring Unavailable SERVICES, [facility] Unava ilable ISABEL HARRIS Referring Unavailable SERVICES, [facility] Unava il[facility] VIVIANA MCCLOUD Referring Unavailable SERVICES, [facility] Un[facility] il[facility] KAYLA LINK Admitting Unavailable ELIZABETH SIMEON Referring Unavailable SERVICES, [facility] Unava ilable KIMMY ATKINSON Consulting Unavailable RAYSA MEHTA Attending Unavailable ANA MARÍA SIERRA Consulting Unavailable LUIS CUTLER Consulting Unavailable MAYA LUCIANO Consulting Unavailable JESSICAAIDEN LUA M Referring Unavailable SERVICES, [facility] Unava ilable FABIO, MUHAMID M Referring Unavailable SERVICES, [facility] Un[facility] ilable Talib VAN, Alexander Manzo Attending Unavailable Giedraitis , Andfrancie Manzo Attending Unavailable Giedraitis , Andfrancie Manzo Attending Unavailable Giedraitis , Andfrancie Manzo Attending Unavailable Giedraitis , Andfrancie Manzo Attending Unavailable ORALIA, MERE Referring Unavailable BAKERLATHA L Primary Care Unavailable SERVICES, [facility] Unava ilable GRETCHEN MICHELE Attending Unavailable MICI, TEAGAN Attending Unavailable SERVICES, [facility] Unava ilable MICI, TEAGAN Referring Unavailable SERVICES, [facility] Unava ilable SERVICES, [facility] Un[facility] AIDEN LOPEZ Attending Unavailable MICI, TEAGAN Attending Unavailable MICI, TEAGAN Referring Unavailable SERVICES, [facility] Un[facility] il[facility] GIOVANNI HDEZ Attending Unavailable GIOVANNI HDEZ Referring Unavailable SERVICES, [facility] Unava ilable SERVICES, [facility] Un[facility] il[facility] MIRYAM AGUDELO Consulting Unavailable FABIO, MUHAMID M Admitting Unavailable FABIO, LAUREANO Doyle Attending Unavailable INPATIENT, [facility]EL[facility] Consulting Unavail able GIOVANNI HDEZ Attending Unavailable GIOVANNI HDEZ Referring Unavailable SERVICES, [facility] Unava ilable Igor Holliday MD Primary Care Provider [phone] Su Peña, Art Attending Provider Allergies Allergy ClassificationReported Allergen(s)Allergy TypeDate of OnsetReaction(s) Facility (18 sources)Sulfonamides (Antibiotic); Translations: [Sulfa (Sulfonamide Antibiotics)]Allergy to -[phone] Medications Current Medications MedicationDrug Class(es)DatesSig (Normalized)Sig (Original)acetaminophen 325 mg oral tablet (1 source)Start: 13-99-9614xdzj 650 mg by mouth every four hours as needed for pain and headacheacetaminophen 300 mg / codeine phosphate 30 mg oral tablet (2 sources)Opioid AgonistStart: 88-82-8336bzgvzpq 81 mg chewable tablet (17 sources)Platelet Aggregation Inhibitor, Nonsteroidal Anti-inflammatory Drug Start: 05-18-2024 End: 36-95-5993wnpqfic 81 mg chewable tablet Chew 1 tablet (81 mg total) and swallow in the morning for 360 days. 90 tablet 3 06/17/2024 06/12/2025 Active Start: 05-07-2024 End: 49-66-9155Rorji: 05-07-2024 End: 00-78-1987ukpnhwoectoe 80 mg oral tablet (17 sources)HMG-CoA Reductase InhibitorStart: 05-18-2024 End: 50-12-8053allb 1 tablet by mouth once dailyatorvastatin (LIPITOR) 80 mg tablet Take 1 tablet (80 mg total) by mouth nightly. 90 tablet 3 06/17/2024 ActiveStart: 57-20-7108wnoERArat hydrochloride 10 mg oral tablet (17 sources)Start: 16-80-8017gzwa 1 tablet by mouth in the morning, then take 1 tablet by mouth at bedtimebusPIRone (BUSPAR) 10 mg tablet Take 1 tablet (10 mg total) by mouth in the morning and 1 tablet (10 mg total) before bedtime. 05/18/2024 ActiveStart: 04-29-2020 End: 23-97-0024zukcpriyvca 75 mg oral tablet (3 sources)P2Y12 Platelet InhibitorStart: 54-08-3396muvw 1 tablet by mouth in the morningclopidogreL (PLAVIX) 75 mg tablet Take 1 tablet (75 mg total) by mouth in the morning. 30 tablet 1 09/19/2024 Activecyclobenzaprine hydrochloride 10 mg oral tablet (8 sources)Muscle RelaxantStart: 24-91-4002lpgv 1 tablet by mouth once daily at bedtimecyclobenzaprine (FLEXERIL) 10 mg tablet Take 1 tablet (10 mg total) by mouth once daily at bedtime.09/18/2024 ActiveStart: 07-06-2021 End: 68-10-0914fvdmmrxogvxrt 10 mg oral tablet (15 sources)Sodium-Glucose Cotransporter 2 InhibitorStart: 05-18-2024 End: 23-39-5353rjvz 1 tablet by mouth in the morningdapagliflozin propanediol (FARXIGA) 10 mg tablet Take 1 tablet (10 mg total) by mouth in the morning for 360 days. 90 tablet 3 06/17/2024 06/12/2025 ActiveStart: 05-10-2024 End: 29-46-2308ppxunszntlOLJLV (1 source)Histamine-1 Receptor AntagonistStart: 44-54-8739nudngmaulzxzce 1.25 mg oral capsule (2 sources)Provitamin D2 CompoundStart: 79-00-3440Qkpqibbxyoveqv (Vitamin D2) Active 1250 MCG PO We@0900 5 July 11, 2021 9:02amfolic acid 1 mg oral tablet (14 sources)Start: 41-09-7018ikqv 1 tablet by mouth in the morningfolic acid (FOLVITE) 1 mg tablet Take 1 tablet (1 mg total) by mouth in the morning. 05/18/2024 ActiveStart: 76-87-2307iesyeigayf 300 mg oral capsule (19 sources)Anti-epileptic AgentStart: 07-06-2021 End: 63-34-3789vxjdlmtd (rdna) 1 mg injection (1 source)Antihypoglycemic AgentStart: 06-87-7147emmainw 0.4 mg/mg oral gel (3 sources)Start: 71-78-6860Gcoif: ml heparin sodium, porcine 5000 unt/ml injection (2 sources)Unfractionated Heparin, Anti-coagulantStart: 35-86-9428Qwcbz: 05-07-2024 End: 39-72-9519rkwstxntsw 3 mg oral tablet (2 sources)Antiparasitic, PediculicideStart: 50-30-1129Eohobmdsrm (Stromectol) 3 mg Tablet Active 0 .ROUTE .COMPLEX July 11, 2021 9:39am 10.5 mg orally ;take 3.5 tabs on 07/13, 07/14, and 07/20 (for a total 5 dose course of which you received 2 doses while in hospital)LORazepam 0.5 mg oral tablet (6 sources)BenzodiazepineStart: 05-15-2024 End: 49-68-3064Qxori: 05-07-2024 End: 93-27-8268dscx 0.5 mg intravenously every six hours as needed for bftxlue23 hr metoprolol succinate 25 mg extended release oral tablet (15 sources)beta-Adrenergic BlockerStart: 05-08-2024 End: 89-76-9944xgxg 0.5 tablet by mouth every twenty-four hours in the morning metoprolol succinate XL (TOPROL XL) 25 mg 24 hr tablet Indications: Chronic systolic heart failure (CMS-HCC) Take 0.5 tablets (12.5 mg total) by mouth in the morning. 45 tablet 3 06/17/2024 Active1 ml morphine sulfate 2 mg/ml injection (2 sources)Opioid AgonistStart: 60-45-6635qkhk 2 mg intravenously every eight hours as neededStart: 05-07-2024 End: 04-89-6721vtma 4 mg intravenously every two hours as needed for pain nitroglycerin 0.4 mg sublingual tablet (3 sources)Nitrate VasodilatorStart: 05-07-2024 End: 56-58-9269Wsivp: 05-07-2024 End: 63-66-2960cpahpfgcecow glycol 3350 16496 mg powder for oral solution (1 source)Osmotic LaxativeStart: 07-34-0781vggmljzvkvq sodium 20 mg oral tablet (2 sources)HMG-CoA Reductase InhibitorStart: 48-98-3622ghzv 20 mg by mouth once daily in the eveningPravastatin Active 20 MG PO Every evening July 11, 2021 9:03amrisperiDONE 1 mg oral tablet (2 sources)Atypical AntipsychoticStart: 95-74-3609iggl 1 mg by mouth at bedtime Risperidone Active 1 MG PO Bedtime July 11, 2021 9:27ci956 ml sodium chloride 9 mg/ml prefilled syringe (4 sources)Start: 91-35-3989psaceokzvlvmee 25 mg oral tablet (15 sources)Aldosterone AntagonistStart: 05-18-2024 End: 66-38-3714hisf 1 tablet by mouth in the morningspironolactone (ALDACTONE) 25 mg tablet Take 1 tablet (25 mg total) by mouth in the morning. 90 tablet 3 06/17/2024 ActiveStart: 11-64-9855qxsphuiql 40 mg oral tablet (15 sources)Angiotensin 2 Receptor BlockerStart: 05-18-2024 End: 69-56-1135xfgy 1 tablet by mouth in the morning, then take 1 tablet by mouth at bedtimevalsartan (DIOVAN) 40 mg tablet Take 1 tablet (40 mg total) by mouth in the morning and 1 tablet (40 mg total) before bedtime. 90 tablet 3 06/17/2024 ActiveStart: 05-99-4083Brxoh: 91-87-1913jzpxbcd b12 1 mg oral tablet (2 sources)Vitamin S68Suazm: 65-27-7089sgfk 1000 ug by mouth once daily in the morningCyanocobalamin (Vitamin B-12) Active 1000 MCG PO Every morning July 11, 2021 9:39am Completed/Discontinued Medications MedicationDrug Class(es)DatesSig (Normalized)Sig (Original)amLODIPine 2.5 mg oral tablet (4 sources)Dihydropyridine Calcium Channel BlockerStart: 86-70-6945Zhhjs: 48-15-1378ubnr 1 tablet by mouth in the morningamLODIPine (NORVASC) 5 mg tablet Take 1 tablet (5 mg total) by mouth in the morning. 1 09/25/2018 Suspended baclofen 10 mg oral tablet (4 sources)gamma-Aminobutyric Acid-ergic Agonistbenzonatate 100 mg oral capsule (8 sources)Non-narcotic AntitussiveStart: 05-18-2024 End: 96-72-2078nxzi 1 capsule by mouth three times daily as needed for cough benzonatate (TESSALON PERLES) 100 mg capsule Take 1 capsule (100 mg total) by mouth 3 (three) timesa day as needed for cough. 05/18/2024 06/17/2024 Discontinued (Therapy completed)calcium chloride 0.0014 meq/ml / potassium chloride 0.004 meq/ml / sodium chloride 0.103 meq/ml / sodium lactate 0.028 meq/ml injectable solution (1 source)Start: 05-08-2024 End: 69-64-5924fedvqwek sodium 50 mg / sennosides, senior care 8.6 mg oral tablet (14 sources)Start: 05-18-2024 End: 52-90-6863ggmk 2 tablets by mouth twice daily as needed for constipation sennosides-docusate sodium (SENOKOT-S) 8.6-50 mg Take 2 tablets by mouth 2 (two) times a day as needed for constipation. 05/18/2024 10/07/2024 DiscontinuedStart: 96-11-7679606 ml DOPamine hydrochloride 1.6 mg/ml injection (1 source)CatecholamineStart: 05-07-2024 End: 90-49-7638VIRksuirts 60 mg delayed release oral capsule (19 sources)Serotonin and Norepinephrine Reuptake InhibitorStart: 05-08-2024 Start: 07-06-2021 End: 51-32-7212wkvn 1 capsule by mouth in the morningDULoxetine (CYMBALTA) 60 mg capsule Take 1 capsule (60 mg total) by mouth in the morning. 05/18/2024 10/07/2024 Discontinuedibuprofen 600 mg oral tablet (6 sources)Nonsteroidal Anti-inflammatory DrugStart: 44-38-1191Vzvyq: 07-06-2021 take 600 mg by mouth every six hoursIbuprofen Active 600 MG PO Q6H July 06, 2021 4:32pmMagnesium Sulfate (Bulk) (Epsom Salt) 100 % Crystals (2 sources)Start: 07-06-2021 End: 78-03-3632Ymhqynzjb Sulfate (Bulk) (Epsom Salt) 100 % Crystals Discontinued 1 APPLIC TOPICAL Three times daily July 06, 2021 5:11pm July 11, 2021 12:09pm Start: 07-06-2021 End: 46-76-1894Cvhuxxnhr Sulfate (Bulk) (Epsom Salt) 100 % Crystals Discontinued 1 APPLIC TOPICAL Three times daily July 06, 2021 12:00am July 11, 2021 12:09pm melatonin 5 mg chewable tablet (3 sources) End: 46-87-9390mzfwiioyv 5 mg tablet,chewable Chew 1 tablet and swallow nightly. 1-2 nightly Suspendednicotine 4 mg chewing gum (8 sources)Cholinergic Nicotinic AgonistStart: 06-17-2024 End: 04-87-3918ceiacnig polacrilex (NICORETTE) 4 MG gum Indications: Continuous tobacco abuse Chew 1 each (4 mg total) as directed as needed for smoking cessation. As recommended on Nicorette gum label, weeks 1-6 1piece every 1-2 hours, week 7-9 1 piece every 2-4 hours, weeks 10-12 1 piece every 4-8 hours. Do not use nicotine gum simultaneously with other tobacco product 100 each 3 06/17/2024 10/07/2024 DiscontinuedStart: 89-75-5605tedgzizcfw 40 mg delayed release oral capsule (3 sources)Proton Pump InhibitorStart: 2018 End: 81-20-4459Sxgbl: 92-60-1738bnoc 1 capsule by mouth in the morningomeprazole (PriLOSEC) 40 mg capsule Take 1 capsule (40 mg total) by mouth in the morning. 0 2018 Suspendedprasugrel 10 mg oral tablet (12 sources)P2Y12 Platelet InhibitorStart: 05-18-2024 End: 84-48-8431zpkn 1 tablet by mouth in the morningprasugreL HCl (EFFIENT) 10 mg tablet Take 1 tablet (10 mg total) by mouth in the morning. 90 tablet3 06/17/2024 SuspendedStart: 96-81-6000FJQernkkcv 50 mg oral tablet (5 sources)Atypical AntipsychoticStart: 05-07-2024 End: 05-49-7855oqjajlgl 100 mg oral tablet (16 sources)Start: 05-13-2024 End: 04-57-6576tbpv 1 tablet by mouth in the morningthiamine HCl (VITAMIN B-1) 100 mg tablet Take 1 tablet (100 mg total) by mouth in the morning. 05/18/2024 10/07/2024 DiscontinuedStart: 14-11-7226fjhy 100 mg by mouth once dailyThiamine Hcl (Vitamin B1) Active 100 MG PO Daily July 11, 2021 9:31vw615 ml tirofiban 0.05 mg/ml injection (1 source)Platelet Aggregation InhibitorStart: 05-07-2024 End: 80-37-1995ghiLWFnguizo 500 mg oral tablet (7 sources)Herpesvirus Nucleoside Analog DNA Polymerase Inhibitor, Herpes Simplex Virus Nucleoside Analog DNA Polymerase Inhibitor, Herpes Zoster Virus Nucleoside Analog DNA Polymerase InhibitorStart: 08-30-2021 End: 96-20-5295Lgueh: 28-85-1087dgdw 500 mg by mouth once dailyValacyclovir Active 500 MG PO Daily July 06, 2021 5:42pm (7 sources)Start: 05-10-2024 End: 03-23-2269lpzy 500 mg intravenously every eight hoursStart: 05-07-2024 [Order 1 Start] Name: calcium gluconate IVPB 1000 mg/50 mL [...] than 5.5 mg/dL. VESICANT (RED) [Order 3 End]Start: 05-07-2024[Order 1 Start] Name: sodium phosphate 20 mmol in sodium chloride 0.9 % 250 mL IVPB Signed Summary:20 mmol, intravenous, at 42.8 mL/hr, Administer over [...] a full glass of water. [Order 3 End]Start: 05-07-2024[Order 1 Start] Name: magnesium sulfate IVPB 2000 mg/50 mL [...] administered, check ionized magnesium (or total magnesium ifionized magnesium unavailable) level 4 hours after infusion. [Order 1 End] [Order 2 Start] Name: magnesium sulfate IVPB 4000 mg/100 mL in iso- osmotic water (40 mg/mL premix) Signed Summary: 4,000 mg,intravenous, at 25 mL/hr, Administer over 240 Minutes, [...] level 4 hours after infusion. [Order 2 End]Start: 96-77-5793frzi 1 tablet by mouth once [Order 1 Start] Name: potassium chloride (K-TAB,KLOR-CON) CR tablet 20-50 mEq Signed Summary: 20-50mEq, oral, As needed, for potassium replacement, Starting [...] 3-8 ounces of water or juice before administrationWhen administering in feeding tube, flush before and after per policy and monitor potassium levels [Order 2 End]Start: 05-07-2024[Order 1 Start] Name: potassium chloride IVPB 10 mEq/50 mL in water (0.2 mEq/mL premix) Signed Summary: 10 mEq, intravenous, at 50 mL/hr, Administer over 1 Hours, As needed, for potassium replacement, Starting on Mon05/07/24 at 2243, Administer Potassium Chloride IVPB in 10 mEq increments. Maximum infusion rates: Central Line = 20 mEq/hour. Administer via Central Line Only. If dose administered, r echeck potassium level 1 hour after infusion complete. [...] VESICANT (YELLOW) [Order 1 End] [Order 2 Start]Name: potassium chloride IVPB 10 mEq/100 mL in [...] 3.1 to 3.3 mmol/L and Serum Creatinine 1.2or less = 40 mEq For potassium level 3 mmol/L or less and Serum Creatinine 1.2 or less = 50 mEq Forpotassium level 3.4 to 3.8 mmol/L and Serum Creatinine greater than 1.2 = 20 mEq For potassium level 3.1 to 3.3 mmol/L and Serum Creatinine greater than 1.2 = 30 mEq For potassium level 3 mmol/L or less and Serum Creatinine greater than 1.2 = 40 mEq VESICANT (YELLOW) Infuse each 10 mEq over a minimum of 1 hour. [Order 2 End]Start: 05-07-2024 End: 05-08-2024 Problems Active Problems Problem ClassificationProblemDateDocumented DateEpisodic/ChronicAbdominal pain (1 source)Unspecified abdominal pain; Translations: [Unspecified abdominal pain] Onset: 30-67-6000UranetqmRgpzp myocardial infarction (18 sources)Myocardial infarction; Translations: [ST elevation (STEMI) myocardial infarction of unspecified site]Onset: hronic Administrative/social admission (4 sources)Bereavement; Translations: [Disappearance and of family member] 48-68-0651VujmilnyXxrlrws-related disorders (8 sources)Alcohol amnestic disorder; Translations: [Alcohol dependence with alcohol-induced persisting amnestic disorder]Onset: hronic Comment on above:Problem List clean-up per request of Phys. EHR CmteAlcohol- related disorders (2 sources)Alcoholic encephalopathy; Translations: [Alcohol use, unspecified with alcohol-induced persisting amnestic disorder]35-79-1562IrdoitjiQwumjsoyuv disorders (20 sources)Complete atrioventricular block; Translations: [Atrioventricular block, complete]Onset: 903933-13-5999RtdhryqQiaqfghiop heart failure; nonhypertensive (11 sources)Chronic systolic heart failure; Translations: [Chronic systolic (congestive) heart failure]Onset: 757933-96-2554FacosqnZzezvcut atherosclerosis and other heart disease (20 sources)Coronary arteriosclerosis; Translations: [Atherosclerotic heart disease of [place] coronary artery without angina pectoris]Onset: 05-07-2024 88-72-8435ZgqfxykUaduvfolr of lipid metabolism (16 sources)Mixed hyperlipidemia; Translations: [Mixed hyperlipidemia]Onset: 703091-29-1408OgkpiphO Codes: Fall (1 source)FallOnset: 87-57-8585Haenkbrng hypertension (17 sources)Hypertensive disorder; Translations: [Essential (primary) hypertension]Onset: 097949-97-8056QbhjdfjCymkuql and fatigue (2 sources)Weakness; Translations: [Fatigue]Onset: 81-17-7764LtnpoyalWqwbexxfcep deficiencies (1 source)Moderate protein-calorie malnutrition; Translations: [Moderate protein-calorie malnutrition]Onset: 97-33-7829JatmmpiUrrnb infections; including parasitic (2 sources)Infestation by Sarcoptes scabiei eleanor hominis; Translations: [Scabies] 20-76-8534RpuhwcsoSpybqij on above:Problem List clean-up per request of Phys. EHR CmteOther nervous system disorders (4 sources)Disturbance of attention; Translations: [Attention and concentration deficit]04-54-9890LbiulgtCsvdp screening for suspected conditions (not mental disorders or infectious disease) (4 sources)Abnormal electrocardiogram [ECG] [EKG]; Translations: [Other specified abnormal findings of blood chemistry]Onset: 98-01-5404BhsgcgkvQykkd skin disorders (2 sources)Eruption; Translations: [Rash and other nonspecific skin eruption] 25-65-4530LwfirvkdJogdtvx on above:Problem List clean-up per request of Phys. EHR CmteOther skin disorders (1 source)Rash and other nonspecific skin eruption; Translations: [Rash and other nonspecific skin eruption]EpisodicPancreatic disorders (not diabetes) (1 source)Acute pancreatitis without necrosis or infection, unspecified; Translations: [Acute pancreatitis without necrosis or infection, unspecified] Onset: 74-48-9281UjovodhqIqzyrkyc codes; unclassified (4 sources)Amnesia; Translations: [Other amnesia]11-57-3667SgrmzmsxVivwfjox codes; unclassified (4 sources)Family history of dementia; Translations: [Family history of other mental and behavioral disorders]36-68-3274NpjpvhllApgtlxlt codes; unclassified (1 source)Tobacco user; Translations: [Tobacco use]63-70-5908Fdfkccrx Schizophrenia and other psychotic disorders (4 sources)Psychotic disorder; Translations: [Unspecified psychosis not due to a substance or known physiological condition]Onset: 97-96-638615801403-18-0942Ebaskhb Comment on above:Problem List clean-up per request of Phys. EHR CmteSpondylosis; intervertebral disc disorders; other back problems (20 sources)Cervical spondylosis without myelopathy; Translations: [Spondylosis without myelopathy or radiculopathy, cervical region]Onset: ChronicSpondylosis; intervertebral disc disorders; other back problems (1 source)Neck painOnset: 85-70-4714LqkmsosuBzeloorvnuhw (1 source)CHBOnset: 71-33-8645Ezewafzqqqko (1 source)Hospital Follow-upOnset: 55-48-2137Lqulowtereos (1 source)EMSOnset: 05-07-2024 Past or Other Problems Problem ClassificationProblemDateDocumented DateEpisodic/ChronicAcute and unspecified renal failure (1 source)Acute kidney failure, unspecified; Translations: [Acute kidney failure, unspecified]Onset: 94-69-8040XottoowsTmfdownrrs associated with dizziness or vertigo (1 source)Dizziness and giddiness; Translations: [Dizziness and giddiness]Onset: 27-71-8636JjzgycfcC Codes: Fall (1 source)Unspecified fall, initial encounter; Translations: [Unspecified fall, initial encounter]Onset: 45-03-4036PlgiogksHfab disorders (13 sources)Mood disordersOnset: ther infections; including parasitic (2 sources)Scabies; Translations: [Scabies]Onset: 73-58-0156OqxqifiwRpjrwchy codes; unclassified (5 sources)Altered mental status; Translations: [Altered mental status, unspecified]Onset: 859749-28-3329NdowsgvqGfktspna codes; unclassified (2 sources)Altered mental status, unspecified; Translations: [Altered mental status, unspecified]Onset: 68-93-6712YaooiwijPynjgzlz codes; unclassified (1 source)Tobacco use; Translations: [Tobacco use]Onset: 77-62-7015Gvxhfpot Residual codes; unclassified (1 source)Other amnesia; Translations: [Other amnesia]Onset: 82-74-2635Ywsvugit Septicemia (except in labor) (6 sources)Sepsis; Translations: [Sepsis, unspecified organism]Onset: 09-12-2024 26-82-3649TygekrtfBisgysp (1 source)Syncope and collapse; Translations: [Syncope and collapse]Onset: 36-96-0267IijkeboqWsnogkchhyit (13 sources)Onset: [id number] Results Test NameValueInterpretationReference RangeFacilityCBC WITH AUTO DIFFERENTIALon 00-31-3394DAJMKYHTETH BASOPHILS ABSOLUTE COUNT (10*3/UL) BY MANUAL COUNT0.1 10*3/uLNormal0.0-0.2Pro[facility] Medical CenterComment on above:Result Comment: This is an appended report. These results have been appended to a previously preliminary verified report.Performed By: #### CBCA, CMP, FEPR, 79520-1, TSHR, 2276-4, HA1C, 2284-8, 2132-9 #### [facility] ([id number]) [address] [place] [address], [address] [place] [address] #### 78956-7 #### [facility] ([id number]) [address] [place] [address] 36619TTDYWXGATVK BASOPHILS RELATIVE PERCENT BY MANUAL COUNT3 %Normal [facility] CenterCom[facility] on above:Result Comment: This is an appended report. These results have been appended to a previously preliminary verified report.Performed By: #### CBCA, CMP, FEPR, 43296-0, TSHR, 2276-4, HA1C, 2284-8, 2132-9 #### [facility] ([id number]) [address] [place] [address], [address] [place] [address] #### 67260-4 #### [facility] ([id number]) [address] [place] [address] 40481RYIMNPQQNWA DIFFERENTIAL TYPEMANUAL DIFFERENTIALNormalProMedica Downey [facility] Medical CenterComchelsea hospital on above:Result Comment: This is an appended report. These results have been appended to a previously preliminary verified report. Performed By: #### CBCA, CMP, FEPR, 59717-5, TSHR, 2276-4, HA1C, 2284-8, 2131-10 #### [facility] ([id number]) [address] [facility], [address] [place] [address] #### 00713-9 #### [facility] ([id number]) [address] [place] [address] 42878SYDZBGRBNZD ELLIPTOCYTES IN BLOOD BY LIGHT MICROSCOPY1+Normal [facility] on above:Result Comment: This is an appended report. These results have been appended to a previously preliminary verified report.Performed By: #### CBCA, CMP, FEPR, 95241-6, TSHR, 2276-4, HA1C, 4-8, 2131-10 #### [facility] ([id number]) [address] [facility], [address] [place] [address] #### 98441-2 #### [facility] ([id number]) [address] [place] [address] 72305IYUQKSJXGVQ EOSINOPHILS ABSOLUTE COUNT (10*3/UL) BY MANUAL COUNT0.1 10*3/uLNormal0.0-0.4Pro[facility]ca [facility] on above:Result Comment: This is an appended report. These results have been appended to a previously preliminary verified report.Performed By: #### CBCA, CMP, FEPR, 15760-0, TSHR, 2276-4, HA1C, 2284-8, 2131-10 #### [facility] ([id number]) [address] [facility], [address] [place] [address] #### 11803-6 #### [facility] ([id number]) [address] [place] [address] 68222MXZLISDVXZW EOSINOPHILS PERCENT BY MANUAL COUNT3 %Normal [facility] on above:Result Comment: This is an appended report. These results have been appended to a previously preliminary verified report.Performed By: #### CBCA, CMP, FEPR, 47581-1, TSHR, 2276-4, HA1C, 2284-8, 9 #### [facility] ([id number]) [address], [address] [place] [address] #### 54378-1 #### [facility] ([id number]) [address] [place], [place] [address]QUJLFHAUUVG LYMPHOCYTES ABSOLUTE COUNT (10*3/UL) BY MANUAL COUNT2.1 10*3/uLNormal1.0-3.5[facility] on above:Result Comment: This is an appended report. These results have been appended to a previously preliminary verified report.Performed By: #### CBCA, CMP, FEPR, 35908-9, TSHR, 2276-4, HA1C, 2284-8, 2131-10 #### [facility] ([id number]) [address], [address] [place] [address] #### 31290-1 #### [facility] ([id number]) [address] [place] [address] 59665ZMEXOXHXMNI LYMPHOCYTES RELATIVE PERCENT BY MANUAL COUNT36 % NormalProMedica [facility] on above:Result Comment: This is an appended report. These results have been appended to a previously preliminary verified report.Performed By: #### CBCA, CMP, FEPR, 15612-4, TSHR, 2276-4, HA1C, 2284-8, 9 #### [facility] ([id number]) [address], [address] [place] [address] #### 23145-0 #### [facility] ([id number]) [address] [place], [place] [address]JUVCUOSRYLY METAMYELOCYTES RELATIVE PERCENT BY MANUAL COUNT1 % NormalProPermian Regional Medical CenterComchelsea hospital on above:Result Comment: This is an appended report. These results have been appended to a previously preliminary verified report.Performed By: #### CBCA, CMP, FEPR, 02564-9, TSHR, 2276-4, HA1C, 2284-8, 9 #### [facility] ([id number]) [address] [facility], [address] [place] [address] #### 23784-3 #### [facility] ([id number]) [address] [place] [address] 09387VLNCSOMTVGQ MONOCYTES ABSOLUTE COUNT (10*3/UL) IN BLOOD BY MANUAL COUNT0.5 10*3/uLNormal0.0-0.9[facility]Com[facility] on above: Result Comment: This is an appended report. These results have been appended to a previously preliminary verified report.Performed By: #### CBCA, CMP, FEPR, 79972-4, TSHR, 2276-4, HA1C, 4-8, 2131-10 #### [facility] ([id number]) [address] [facility], [address] [place] [address] #### 80661-5 #### [facility] ([id number]) [address] [place] [address] 97844QHXOEPOKDHW MONOCYTES RELATIVE PERCENT BY MANUAL COUNT9 %Normal [facility]rom[facility] AngelesComchel[facility] hospital on above:Result Comment: This is an appended report. These results have been appended to a previously preliminary verified report.Performed By: #### CBCA, CMP, FEPR, 91843-6, TSHR, 2276-4, HA1C, 2284-8, 2131-9 #### [facility] ([id number]) [address] [facility], [address] [place] [address] #### 08378-2 #### [facility] ([id number]) [address] [place] [address] 27114FJOETKXAPSG NEUTROPHILS ABSOLUTE COUNT BY MANUAL COUNT2.9 10*3/uLNormal1.5-6.6[facility] HospitalComment on above:Result Comment: This is an appended report. These results have been appended to a previously preliminary verified report.Performed By: #### CBCA, CMP, FEPR, 28056-9, TSHR, 2276-4, HA1C, 2284-8, 9 #### [facility] ([id number]) [address] [place] [address] #### 52333-0 #### [facility] ([id number]) [address] [place] [address] 52551UXYANEYZIQQ NEUTROPHILS RELATIVE PERCENT BY MANUAL COUNT50 % NormalProPermian Regional Medical CenterComment on above:Result Comment: This is an appended report. These results have been appended to a previously preliminary verified report.Performed By: #### CBCA, CMP, FEPR, 80755-6, TSHR, 2276-4, HA1C, 4-8, 2131-10 #### [facility] ([id number]) [address] [place] [address] #### 95590-7 #### [facility] ([id number]) [address] [place] [address] 71585Hyfyllhxcur distribution width (RBC) [Ratio]20.6 %High11.5-15 [facility] HospitalComment on above:Performed By: #### CBCA, CMP, FEPR, 53629-3, TSHR, 2276-4, HA1C, 2284-8, 9 #### [facility] ([id number]) [address] [place] [address] #### 98977-8 #### [facility] ([id number]) [address] [place] [address] 91906Symyxuvpci (Bld) [Volume fraction]28.4 %Mjk82-30HujReaxvpPermian Regional Medical CenterComment on above:Performed By: #### CBCA, CMP, FEPR, 64699-7, TSHR, 2276-4, HA1C, 2283-8, 2131-10 #### [facility] ([id number]) [address], [address] [place] [address] #### 53573-5 #### [facility] ([id number]) [address] [place] [address] 44935Iehxazobwh (Bld) [Mass/Vol]9.6 g/dLLow11.7-15.5PChildren's Hospital of ColumbusComment on above:Performed By: #### CBCA, CMP, FEPR, 57704-8, TSHR, 2276-4, HA1C, 2283-09, 2131-10 #### [facility] ([id number]) [address], [address] [place] [address] #### 88456-5 #### [facility] ([id number]) [address] [place] [address] 22166NKV (RBC) [Entitic mass]28.7 frJmkvfs54-75RusNepntuCleveland Clinic Euclid HospitalComment on above:Performed By: #### CBCA, CMP, FEPR, 41922-8, TSHR, 2276-4, HA1C, 2283-, 2131-10 #### [facility] ([id number]) [address], [address] [place] [address] #### 25391-2 #### [facility] ([id number]) [address] [place] [address] 43937RSLX (RBC) [Mass/Vol]33.8 g/fWNszffw11-13CueKbibowPermian Regional Medical CenterComment on above:Performed By: #### CBCA, CMP, FEPR, 43183-1, TSHR, 2276-4, HA1C, 228-8, 2131-10 #### [facility] ([id number]) [address], [address] [place] [address] #### 63554-7 #### [facility] ([id number]) [address] [place] [address] 10330QSM (RBC) [Entitic vol]85 aWLepvvo97-724RvzYrjayj [facility] HospitalComment on above:Performed By: #### CBCA, CMP, FEPR, 91454-0, TSHR, 2276-4, HA1C, 2283-, 2131-10 #### [facility] ([id number]) [address], [address] [place] [address] #### 71627-5 #### [facility] ([id number]) [address] [place] [address] 41465Nxqxosex mean volume (Bld) [Entitic vol]8.7 fLNormal7-12 [facility] Medical CenterComment on above:Performed By: #### CBCA, CMP, FEPR, 85863-5, TSHR, 2276-4, HA1C, 2283-, 2131-10 #### [facility] ([id number]) [address], [address] [place] [address] #### 26246-7 #### [facility] ([id number]) [address] [place] [address] 67283Wrhjocosk (Bld) [#/Vol]250 10*3/lXOzovfx751-180DybMflhtg [facility] HospitalComment on above:Performed By: #### CBCA, CMP, FEPR, 45642-5, TSHR, 2276-4, HA1C, 2283-, 2131-10 #### [facility] ([id number]) [address], [address] [place] [address] #### 36725-6 #### [facility] ([id number]) [address] [place] [address] 51500ZMR COUNT3.34 X10E12/LLow3.8-5.2PChildren's Hospital of Columbus Comment on above:Performed By: #### CBCA, CMP, FEPR, 68045-5, TSHR, 2276-4, HA1C, 2284-8, 2131-10 #### [facility] ([id number]) [address] [facility], [address] [place] [address] #### 98337-6 #### [facility] ([id number]) [address] [place] [address] 90878DXO (Bld) [#/Vol]5.9 10*3/uLNormal4-11Pro[facility] Medical CenterComment on above:Performed By: #### CBCA, CMP, FEPR, 32801-5, TSHR, 2276-4, HA1C, 2283-, 2131-10 #### [facility] ([id number]) [address] [facility], [address] [place] [address] #### 29367-1 #### [facility] ([id number]) [address] [place] [address] 59641WVMEZOWYBIUTI METABOLIC PANELon 76-29-2093Yctorut [Mass/Vol]2.4 g/dLLow3.2-5.3PChildren's Hospital of ColumbusComment on above:Performed By: #### CBCA, CMP, FEPR, 19485-4, TSHR, 2276-4, HA1C, 228-8, 2131-10 #### [facility] ([id number]) [address] [facility], [address] [place] [address] #### 95802-2 #### [facility] ([id number]) [address] [place] [address] 88509MNL [Catalytic activity/Vol]144 U/NEpbg06-444BkrNmplidPermian Regional Medical CenterComment on above:Performed By: #### CBCA, CMP, FEPR, 03978-1, TSHR, 2276-4, HA1C, 2283-8, 2131-10 #### [facility] ([id number]) [address], [address] [place] [address] #### 56490-0 #### [facility] ([id number]) [address] [place], [place] [address] [Catalytic activity/Vol]120 U/LHigh<=31Pro[facility] Medical CenterComment on above:Performed By: #### CBCA, CMP, FEPR, 50258-6, TSHR, 2276-4, HA1C, 2283-, 2131-10 #### [facility] ([id number]) [address] [facility], [address] [place] [address] #### 09893-3 #### [facility] ([id number]) [address] [place] [address] 52167Jhxvc gap [Moles/Vol]5 mmol/LNormal5-15ProPermian Regional Medical CenterComment on above:Performed By: #### CBCA, CMP, FEPR, 59560-2, TSHR, 2276-4, HA1C, 2283-, 2131-10 #### [facility] ([id number]) [address], [address] [place] [address] #### 91548-8 #### [facility] ([id number]) [address] [place] [address] 18466PQB [Catalytic activity/Vol]74 U/LHigh<=41ProPermian Regional Medical CenterComment on above:Performed By: #### CBCA, CMP, FEPR, 97700-4, TSHR, 2276-4, HA1C, 2283-, 2131-10 #### [facility] ([id number]) [address], [address] [place] [address] #### 21346-4 #### [facility] ([id number]) [address] [place] [address] 17165Vfabsbaud [Mass/Vol]0.9 mg/dLNormal0.3-1.2PChildren's Hospital of ColumbusComment on above:Performed By: #### CBCA, CMP, FEPR, 81510-2, TSHR, 2276-4, HA1C, 2283-8, 2131-10 #### [facility] ([id number]) [address], [address] [place] [address] #### 24605-5 #### [facility] ([id number]) [address] [place] [address] 84754Aazxlyy [Mass/Vol]7.9 mg/dLLow8.5-10.5PChildren's Hospital of ColumbusComment on above:Performed By: #### CBCA, CMP, FEPR, 88573-6, TSHR, 2276-4, HA1C, 2283-, 2131-10 #### [facility] ([id number]) [address], [address] [place] [address] #### 31640-7 #### [facility] ([id number]) [address] [place] [address] 14079Ektbvsat [Moles/Vol]102 mmol/UPrsnsn97-319TjxYdzvus [facility] Medical CenterComment on above:Performed By: #### CBCA, CMP, FEPR, 64322-8, TSHR, 2276-4, HA1C, 2283-, 2131-10 #### [facility] ([id number]) [address], [address] [place] [address] #### 27275-6 #### [facility] ([id number]) [address] [place] [address] 22027TH4 [Moles/Vol]24 mmol/AKemvlx26-58RbcBdmfiiChildren's Hospital of Columbus Comment on above:Performed By: #### CBCA, CMP, FEPR, 18533-4, TSHR, 2276-4, HA1C, 2284-8, 2131-10 #### [facility] ([id number]) [address], [address] [place] [address] #### 59242-6 #### [facility] ([id number]) [address] [place] [address] 60962Qyqmsfyfga [Mass/Vol]0.58 mg/dLNormal0.40-1.00[facility] HospitalComment on above:Result Comment: METHOD TRACEABLE TO IDMS STANDARD Performed By: #### CBCA, CMP, FEPR, 15866-0, TSHR, 2276-4, HA1C, 2283-, 2131-10 #### [facility] ([id number]) [address], [address] [place] [address] #### 32234-0 #### [facility] ([id number]) [address] [place] [address] 53609JMKK (CKD-EPI) NON-RACE DEPENDENT>^90Normal>=60[facility]ucl[facility] HospitalComment on above:Result Comment: eGFR not reported due to non- numeric value for Creatinine. Reported eGFR is based on the CKD-EPI 2020 equation that does not use a race coefficient.Performed By: #### CBCA, CMP, FEPR, 17645-5, TSHR, 2276-4, HA1C, 228-8, 2131-10 #### [facility] ([id number]) [address], [address] [place] [address] #### 45271-2 #### [facility] ([id number]) [address] [place] [address] 19616Pijsbme [Mass/Vol]128 mg/nMSyuy11-25UmuEughpcCleveland Clinic Euclid Hospital Comment on above:Performed By: #### CBCA, CMP, FEPR, 84812-4, TSHR, 2276-4, HA1C, 2283-09, 2131-10 #### [facility] ([id number]) [address], [address] [place] [address] #### 38904-8 #### [facility] ([id number]) [address] [place], [place] [address]Pdukvvlks [Moles/Vol]3.8 mmol/LNormal3.5-5.0ProPermian Regional Medical CenterComment on above:Performed By: #### CBCA, CMP, FEPR, 28456-0, TSHR, 2276-4, HA1C, 2283-09, 2131-10 #### [facility] ([id number]) [address], [address] [place] [address] #### 02686-4 #### [facility] ([id number]) [address] [place] [address] 08006Wtgwsll [Mass/Vol]6.7 g/dLNormal6.0-8.0ProPermian Regional Medical CenterComment on above:Performed By: #### CBCA, CMP, FEPR, 70357-1, TSHR, 2276-4, HA1C, 2283-09, 2131-10 #### [facility] ([id number]) [address], [address] [place] [address] #### 54894-4 #### [facility] ([id number]) [address] [place] [address] 24659Ndocml [Moles/Vol]131 mmol/TLfa465-702PknJxodedPermian Regional Medical CenterComment on above:Performed By: #### CBCA, CMP, FEPR, 08727-4, TSHR, 2276-4, HA1C, 2283-09, 2131-10 #### [facility] ([id number]) [address], [address] [place] [address] #### 57413-5 #### [facility] ([id number]) [address] [place] [address] 60382Sikd nitrogen [Mass/Vol]9 mg/dLNormal5-27ProPermian Regional Medical CenterComment on above:Performed By: #### CBCA, CMP, FEPR, 03145-8, TSHR, 2276-4, HA1C, 2283-8, 2131-10 #### [facility] ([id number]) [address] [facility], [address] [place] [address] #### 59763-0 #### [facility] ([id number]) [address] [place] [address] 37737FYLWFJPASox 95-14-5868Bgoouymcb [Mass/Vol]1.7 mg/dLLow1.8-2.6 [facility] Medical CenterComment on above:Performed By: #### CBCA, CMP, FEPR, 05146-4, TSHR, 2276-4, HA1C, 2283-, 2131-10 #### [facility] ([id number]) [address] [facility], [address] [place] [address] #### 41295-8 #### [facility] ([id number]) [address] [place] [address] 27606NPM WITH AUTO DIFFERENTIALon 45-50-4090VDQYMIQBQCU ATYPICAL LYMPHOCYTES RELATIVE PERCENT BY MANUAL COUNT4 %NormalCleveland Clinic Euclid Hospital Comment on above:Result Comment: This is an appended report. These results have been appended to a previously preliminary verified report.Performed By: #### CBCA, CMP, FEPR, 62092-8, TSHR, 2276-4, HA1C, 2283-8, 2131-10 #### [facility] ([id number]) [address] [facility], [address] [place] [address] #### 45071-8 #### [facility] ([id number]) [address] [place] [address] 93694KMBHDJIPIQX DIFFERENTIAL TYPEMANUAL DIFFERENTIALNormalProPermian Regional Medical CenterComchelsea hospital on above:Result Comment: This is an appended report. These results have been appended to a previously preliminary verified report. Performed By: #### CBCA, CMP, FEPR, 14037-5, TSHR, 2276-4, HA1C, 2284-8, 2131-9 #### [facility] ([id number]) [address], [address] [place] [address] #### 58602-1 #### [facility] ([id number]) [address] [place] [address] 92200ZKGLEDQDILC ELLIPTOCYTES IN BLOOD BY LIGHT MICROSCOPY1+Normal ProMselect specialty hospitala [facility] CenterComchelsea hospital on above:Result Comment: This is an appended report. These results have been appended to a previously preliminary verified report.Performed By: #### CBCA, CMP, FEPR, 96796-5, TSHR, 2276-4, HA1C, 2284-8, 2131-10 #### [facility] ([id number]) [address], [address] [place] [address] #### 10061-7 #### [facility] ([id number]) [address] [place] [address] 51886ZBOEUDUJKZX EOSINOPHILS ABSOLUTE COUNT (10*3/UL) BY MANUAL COUNT0.2 10*3/uLNormal0.0-0.4ProPermian Regional Medical CenterComchelsea hospital on above:Result Comment: This is an appended report. These results have been appended to a previously preliminary verified report.Performed By: #### CBCA, CMP, FEPR, 03427-9, TSHR, 2276-4, HA1C, 2284-8, 2131-9 #### [facility] ([id number]) [address], [address] [place] [address] #### 81060-8 #### [facility] ([id number]) [address] [place] [address] 46500TABQHZYNBAE EOSINOPHILS PERCENT BY MANUAL COUNT4 %Normal ProMselect specialty hospitala [facility] on above:Result Comment: This is an appended report. These results have been appended to a previously preliminary verified report.Performed By: #### CBCA, CMP, FEPR, 24271-6, TSHR, 2276-4, HA1C, 2284-8, 9 #### [facility] ([id number]) [address] [place] [address], [address] [place] [address] #### 88805-1 #### [facility] ([id number]) [address] [place] [address] 03867HRHKVOWNXIX LYMPHOCYTES ABSOLUTE COUNT (10*3/UL) BY MANUAL COUNT1.8 10*3/uLNormal1.0-3.5[facility] on above:Result Comment: This is an appended report. These results have been appended to a previously preliminary verified report.Performed By: #### CBCA, CMP, FEPR, 79640-0, TSHR, 2276-4, HA1C, 2284-8, 2131-10 #### [facility] ([id number]) [address] [place] [address], [address] [place] [address] #### [id number] #### [facility] ([id number]) [address] [place] [address] [id number] LYMPHOCYTES RELATIVE PERCENT BY MANUAL COUNT26 % NormalPro[facility]Com[facility] on above:Result Comment: This is an appended report. These results have been appended to a previously preliminary verified report.Performed By: #### CBCA, CMP, FEPR, 21679-9, TSHR, 2276-4, HA1C, 2284-8, 2131-9 #### [facility] ([id number]) [address], [address] [place] [address] #### [id number] #### [facility] ([id number]) [address] [place] [address] [id number] MONOCYTES ABSOLUTE COUNT (10*3/UL) IN BLOOD BY MANUAL COUNT0.8 10*3/uLNormal0.0-0.9Pro[facility] CenterComment on above: Result Comment: This is an appended report. These results have been appended to a previously preliminary verified report.Performed By: #### CBCA, CMP, FEPR, 56756-4, TSHR, 2276-4, HA1C, 2284-8, 2131-10 #### [facility] ([id number]) [address], [address] [place] [address] #### [id number] #### [facility] ([id number]) [address] [place] [address] [id number] MONOCYTES RELATIVE PERCENT BY MANUAL COUNT13 % NormalProPermian Regional Medical CenterComment on above:Result Comment: This is an appended report. These results have been appended to a previously preliminary verified report.Performed By: #### CBCA, CMP, FEPR, 70405-6, TSHR, 2276-4, HA1C, 2283-8, 2131-10 #### [facility] ([id number]) [address], [address] [place] [address] #### 64153-0 #### [facility] ([id number]) [address] [place] [address] [id number] NEUTROPHILS ABSOLUTE COUNT BY MANUAL COUNT3.2 10*3/uLNormal1.5-6.6Pro[facility] CenterCom[facility] on above:Result Comment: This is an appended report. These results have been appended to a previously preliminary verified report.Performed By: #### CBCA, CMP, FEPR, 24553-5, TSHR, 2276-4, HA1C, 2284-8, 2131-10 #### [facility] ([id number]) [address], [address] [place] [address] #### [id number] #### [facility] ([id number]) [address] [place] [address] [id number] NEUTROPHILS RELATIVE PERCENT BY MANUAL COUNT53 % NormalProPermian Regional Medical CenterComment on above:Result Comment: This is an appended report. These results have been appended to a previously preliminary verified report.Performed By: #### CBCA, CMP, FEPR, 28359-1, TSHR, 2276-4, HA1C, 4-8, 2131-10 #### [facility] ([id number]) [address], [address] [place] [id number] #### [id number] #### [facility] ([id number]) [address] [place] [address] [id number] distribution width (RBC) [Ratio]20.4 %High11.5-15 [facility] CenterComment on above:Performed By: #### CBCA, CMP, FEPR, 37765-6, TSHR, 2276-4, HA1C, 2283-8, 2131-10 #### [facility] ([id number]) [address], [address] [place] [address] #### 21632-0 #### [facility] ([id number]) [address] [place] [address] 03197Yujjiaecxo (Bld) [Volume fraction]27.6 %Cif02-09SesDmpgqkPermian Regional Medical CenterComment on above:Performed By: #### CBCA, CMP, FEPR, 69981-2, TSHR, 2276-4, HA1C, 2284-8, 2131-10 #### [facility] ([id number]) [address], [address] [place] [address] #### 43562-3 #### [facility] ([id number]) [address] [place] [address] 51822Hikfikkbkt (Bld) [Mass/Vol]9.4 g/dLLow11.7-15.5PChildren's Hospital of ColumbusComment on above:Performed By: #### CBCA, CMP, FEPR, 73286-6, TSHR, 2276-4, HA1C, 2284-8, 2131-10 #### [facility] ([id number]) [address] [facility], [facility] [address] [place] [address] #### 54887-9 #### [facility] ([id number]) [address] [place] [address] 64769CRK (RBC) [Entitic mass]28.9 eqVuxola84-44WtfZqmoltPermian Regional Medical CenterComment on above:Performed By: #### CBCA, CMP, FEPR, 20205-4, TSHR, 2276-4, HA1C, 2283-8, 2131-10 #### [facility] ([id number]) [address] [facility], [address] [place] [address] #### 45806-8 #### [facility] ([id number]) [address] [place] [address] 01617YPON (RBC) [Mass/Vol]33.8 g/iGCwwnkc70-90PtrHvluzaPermian Regional Medical CenterComment on above:Performed By: #### CBCA, CMP, FEPR, 00981-7, TSHR, 2276-4, HA1C, 2283-8, 2131-10 #### [facility] ([id number]) [address], [address] [place] [address] #### 08585-6 #### [facility] ([id number]) [address] [place] [address] 03300LOK (RBC) [Entitic vol]85 qRRojzji98-550EscHxjprs [facility]remont HospitalComment on above:Performed By: #### CBCA, CMP, FEPR, 98541-5, TSHR, 2276-4, HA1C, 2283-8, 2131-10 #### [facility] ([id number]) [address], [address] [place] [address] #### 18648-7 #### [facility] ([id number]) [address] [place] [address] 96836Wxofquaz mean volume (Bld) [Entitic vol]9.4 fLNormal7-12 [facility] Medical CenterComment on above:Performed By: #### CBCA, CMP, FEPR, 95472-6, TSHR, 2276-4, HA1C, 2283-, 2131-10 #### [facility] ([id number]) [address], [address] [place] [address] #### 69302-0 #### [facility] ([id number]) [address] [place] [address] 75321Bpdxpftqa (Bld) [#/Vol]201 10*3/pKWipsma263-075ImlWktxkh [facility] HospitalComment on above:Performed By: #### CBCA, CMP, FEPR, 02436-2, TSHR, 2276-4, HA1C, 2283-, 2131-10 #### [facility] ([id number]) [address], [address] [place] [address] #### 42705-9 #### [facility] ([id number]) [address] [place] [address] 46746OPO COUNT3.24 X10E12/LLow3.8-5.2PChildren's Hospital of Columbus Comment on above:Performed By: #### CBCA, CMP, FEPR, 66203-8, TSHR, 2276-4, HA1C, 2283-09, 2131-10 #### [facility] ([id number]) [address], [address] [place] [address] #### 49216-0 #### [facility] ([id number]) [address] [place] [address] 33138AKZ (Bld) [#/Vol]6.0 10*3/uLNormal4-11ProPermian Regional Medical CenterComment on above:Performed By: #### CBCA, CMP, FEPR, 60189-5, TSHR, 2276-4, HA1C, 2283-, 2131-10 #### [facility] ([id number]) [address] [facility], [address] [place] [address] #### 49746-4 #### [facility] ([id number]) [address] [place] [address] 60095KDTEFDSYOAAIZ METABOLIC PANELon 70-55-1556Xfwtkvn [Mass/Vol]2.3 g/dLLow3.2-5.3[facility] Medical CenterComment on above:Performed By: #### CBCA, CMP, FEPR, 19999-8, TSHR, 2276-4, HA1C, 2283-, 2131-10 #### [facility] ([id number]) [address] [facility], [address] [place] [address] #### 66541-0 #### [facility] ([id number]) [address] [place] [address] 23552BMJ [Catalytic activity/Vol]144 U/QYwga04-271MssGzpjtdPermian Regional Medical CenterComment on above:Performed By: #### CBCA, CMP, FEPR, 62906-7, TSHR, 2276-4, HA1C, 2283-8, 2131-10 #### [facility] ([id number]) [address] [facility], [address] [place] [address] #### 37695-5 #### [facility] ([id number]) [address] [place] [address] 10296XTL [Catalytic activity/Vol]145 U/LHigh<=31PChildren's Hospital of ColumbusComment on above:Performed By: #### CBCA, CMP, FEPR, 84613-6, TSHR, 2276-4, HA1C, 2283-8, 2131-10 #### [facility] ([id number]) [address] [facility], [address] [place] [address] #### 51051-6 #### [facility] ([id number]) [address] [place] [address] 98006Jebcg gap [Moles/Vol]7 mmol/LNormal5-15ProPermian Regional Medical CenterComment on above:Performed By: #### CBCA, CMP, FEPR, 40912-3, TSHR, 2276-4, HA1C, 2283-, 2131-10 #### [facility] ([id number]) [address] [facility], [address] [place] [address] #### 05557-7 #### [facility] ([id number]) [address] [place] [address] 91988QCD [Catalytic activity/Vol]118 U/LHigh<=41ProPermian Regional Medical CenterComment on above:Performed By: #### CBCA, CMP, FEPR, 93960-7, TSHR, 2276-4, HA1C, 2283-, 2131-10 #### [facility] ([id number]) [address] [facility], [address] [place] [address] #### 36426-0 #### [facility] ([id number]) [address] [place] [address] 20678Jieujzckq [Mass/Vol]0.8 mg/dLNormal0.3-1.2Pro[facility] Mcnairy HospitalComment on above:Performed By: #### CBCA, CMP, FEPR, 12621-3, TSHR, 2276-4, HA1C, 4-8, 2131-10 #### [facility] ([id number]) [address], [address] [place] [address] #### 00096-2 #### [facility] ([id number]) [address] [place] [address] 71493Abhvdde [Mass/Vol]8.1 mg/dLLow8.5-10.5PChildren's Hospital of ColumbusComment on above:Performed By: #### CBCA, CMP, FEPR, 80179-0, TSHR, 2276-4, HA1C, 2283-8, 2131-10 #### [facility] ([id number]) [address], [address] [place] [address] #### 64570-0 #### [facility] ([id number]) [address] [place] [address] 98142Cijfzacc [Moles/Vol]104 mmol/QGzynjm04-789HowRafxev [facility] Medical CenterComment on above:Performed By: #### CBCA, CMP, FEPR, 47926-5, TSHR, 2276-4, HA1C, 2283-8, 2131-10 #### [facility] ([id number]) [address], [address] [place] [address] #### 89533-0 #### [facility] ([id number]) [address] [place] [address] 94936LS4 [Moles/Vol]24 mmol/USavsob45-41YprRafdvpChildren's Hospital of Columbus Comment on above:Performed By: #### CBCA, CMP, FEPR, 55937-5, TSHR, 2276-4, HA1C, 2283-8, 2131-10 #### [facility] ([id number]) [address], [address] [place] [address] #### 26105-4 #### [facility] ([id number]) [address] [place] [address] 81471Tjtudngahj [Mass/Vol]0.56 mg/dLNormal0.40-1.00C[facility] Euclid HospitalComment on above:Result Comment: METHOD TRACEABLE TO IDMS STANDARD Performed By: #### CBCA, CMP, FEPR, 42947-9, TSHR, 2276-4, HA1C, 2283-8, 2131-10 #### [facility] ([id number]) [address] [facility], [facility] [address] [place] [address] #### 10554-5 #### [facility] ([id number]) [address] [place] [address] 68560BUFK (CKD-EPI) NON-RACE DEPENDENT>^90Normal>=60ProPermian Regional Medical CenterComment on above:Result Comment: eGFR not reported due to non- numeric value for Creatinine. Reported eGFR is based on the CKD-EPI 2020 equation that does not use a race coefficient.Performed By: #### CBCA, CMP, FEPR, 19314-1, TSHR, 2276-4, HA1C, 2283-, 2131-10 #### [facility] ([id number]) [address] [facility], [address] [place] [address] #### 32145-7 #### [facility] ([id number]) [address] [place] [address] 29199Gnsstli [Mass/Vol]102 mg/jVBbkj89-82MdtTpdczcCleveland Clinic Euclid Hospital Comment on above:Performed By: #### CBCA, CMP, FEPR, 67708-0, TSHR, 2276-4, HA1C, 2283-8, 2131-10 #### [facility] ([id number]) [address] [facility], [address] [place] [address] #### 50213-6 #### [facility] ([id number]) [address] [place] [address] 53437Owvrbpyqu [Moles/Vol]3.8 mmol/LNormal3.5-5.0ProPermian Regional Medical CenterComment on above:Performed By: #### CBCA, CMP, FEPR, 57292-8, TSHR, 2276-4, HA1C, 2283-8, 2131-10 #### [facility] ([id number]) [address] [facility], [address] [place] [address] #### 70044-5 #### [facility] ([id number]) [address] [place] [address] 01765Ewbsqun [Mass/Vol]6.3 g/dLNormal6.0-8.0ProPermian Regional Medical CenterComment on above:Performed By: #### CBCA, CMP, FEPR, 39247-7, TSHR, 2276-4, HA1C, 2283-09, 2131-10 #### [facility] ([id number]) [address] [facility], [address] [place] [address] #### 30551-7 #### [facility] ([id number]) [address] [place] [address] 18944Ceroma [Moles/Vol]135 mmol/PNjujib679-713ZdgTvhrzb [facility] HospitalComment on above:Performed By: #### CBCA, CMP, FEPR, 95296-9, TSHR, 2276-4, HA1C, 2283-, 2131-10 #### [facility] ([id number]) [address] [facility], [address] [place] [address] #### 05984-1 #### [facility] ([id number]) [address] [place] [address] 17203Yfxi nitrogen [Mass/Vol]9 mg/dLNormal5-27[facility] Mcn[facility] HospitalComment on above:Performed By: #### CBCA, CMP, FEPR, 26222-4, TSHR, 2276-4, HA1C, 2283-09, 2131-10 #### [facility] ([id number]) [address] [place] [address], [address] [place] [address] #### 96199-3 #### [facility] ([id number]) [address] [place] [address] 69402TTJGDAELRtd 80-31-1914Evvspucfo [Mass/Vol]1.6 mg/dLLow1.8-2.6 [facility] Medical CenterComment on above:Performed By: #### CBCA, CMP, FEPR, 50813-6, TSHR, 2276-4, HA1C, 2283-09, 2131-10 #### [facility] ([id number]) [address] [place] [address], [address] [place] [address] #### 27989-8 #### [facility] ([id number]) [address] [place] [address] 30804VDOYCEVPWGey 31-16-5299Rdmslntpg [Mass/Vol]2.4 mg/dLNormal 2.4-4.9ProPermian Regional Medical CenterComment on above:Performed By: #### CBCA, CMP, FEPR, 42588-6, TSHR, 2276-4, HA1C, 2283-09, 2131-10 #### [facility] ([id number]) [address] [place] [address], [address] [place] [address] #### 61898-0 #### [facility] ([id number]) [address] [place] [address] 57533MAKAIUG GLUCOSEon 36-88-1804Nmdkbzm [Mass/Vol]90 mg/dLNormal 65-99ProPermian Regional Medical CenterComment on above:Performed By: #### CBCA, CMP, FEPR, 57916-9, TSHR, 2276-4, HA1C, 2283-09, 2131-10 #### [facility] ([id number]) [address] [facility], [address] [place] [address] #### 90433-9 #### [facility] ([id number]) [address] [place] [address] 78876FEE WITH AUTO DIFFERENTIALon 34-08-3882IVORNSTXACP ATYPICAL LYMPHOCYTES RELATIVE PERCENT BY MANUAL COUNT3 %NormalProWadsworth-Rittman Hospitalca [facility] Comment on above:Result Comment: This is an appended report. These results have been appended to a previously preliminary verified report.Performed By: #### CBCA, CMP, FEPR, 88595-6, TSHR, 6-4, HA1C, 2283-09, 2131-10 #### [facility] ([id number]) [address] [facility], [address] [place] [address] #### 87643-3 #### [facility] ([id number]) [address] [place] [address] 14070BMJWODQCLDX BASOPHILS ABSOLUTE COUNT (10*3/UL) BY MANUAL COUNT 0.1 10*3/uLNormal0.0-0.2[facility] Medical CenterComment on above:Result Comment: This is an appended report. These results have been appended to a previously preliminary verified report.Performed By: #### CBCA, CMP, FEPR, 45969-5, TSHR, 6-4, HA1C, 2283-09, 2131-10 #### [facility] ([id number]) [address] [facility], [address] [place] [address] #### 83181-6 #### [facility] ([id number]) [address] [place] [address] 68952NNSCEWQSWRV BASOPHILS RELATIVE PERCENT BY MANUAL COUNT1 %Normal [facility] Medical CenterComment on above:Result Comment: This is an appended report. These results have been appended to a previously preliminary verified report.Performed By: #### CBCA, CMP, FEPR, 42168-9, TSHR, 2276-4, HA1C, 2284-8, 2131-9 #### [facility] ([id number]) [address], [address] [place] [address] #### 06726-2 #### [facility] ([id number]) [address] [place] [address] 59044ZAGUVFXLXMW DIFFERENTIAL TYPEMANUAL DIFFERENTIALNormalProPermian Regional Medical CenterComchelsea hospital on above:Result Comment: This is an appended report. These results have been appended to a previously preliminary verified report. Performed By: #### CBCA, CMP, FEPR, 16533-8, TSHR, 2276-4, HA1C, 2284-8, 9 #### [facility] ([id number]) [address] [facility], [address] [place] [address] #### 07985-6 #### [facility] ([id number]) [address] [place] [address] 37868TXMDQGPCZFS ELLIPTOCYTES IN BLOOD BY LIGHT MICROSCOPY1+Normal [facility] HospitalComchelsea hospital on above:Result Comment: This is an appended report. These results have been appended to a previously preliminary verified report.Performed By: #### CBCA, CMP, FEPR, 97226-7, TSHR, 2276-4, HA1C, 2284-8, 2131-9 #### [facility] ([id number]) [address], [address] [place] [address] #### 63809-4 #### [facility] ([id number]) [address] [place] [address] 53917RQCGJAXANLG EOSINOPHILS ABSOLUTE COUNT (10*3/UL) BY MANUAL COUNT0.1 10*3/uLNormal0.0-0.4[facility] HospitalComchelsea hospital on above:Result Comment: This is an appended report. These results have been appended to a previously preliminary verified report.Performed By: #### CBCA, CMP, FEPR, 16584-0, TSHR, 2276-4, HA1C, 2284-8, 2131-9 #### [facility] ([id number]) [address], [address] [place] [address] #### 61951-2 #### [facility] ([id number]) [address] [place], [place] [address]IGHLOUJSJPQ EOSINOPHILS PERCENT BY MANUAL COUNT2 %Normal [facility] CenterComchelsea hospital on above:Result Comment: This is an appended report. These results have been appended to a previously preliminary verified report.Performed By: #### CBCA, CMP, FEPR, 58116-5, TSHR, 2276-4, HA1C, 4-8, 9 #### [facility] ([id number]) [address], [address] [place] [address] #### 59520-3 #### [facility] ([id number]) [address] [place] [address] 46872FEUFPIVDGPL LYMPHOCYTES ABSOLUTE COUNT (10*3/UL) BY MANUAL COUNT2.0 10*3/uLNormal1.0-3.5[facility] CenterComchelsea hospital on above:Result Comment: This is an appended report. These results have been appended to a previously preliminary verified report.Performed By: #### CBCA, CMP, FEPR, 73458-9, TSHR, 2276-4, HA1C, 2284-8, 2131-9 #### [facility] ([id number]) [address], [address] [place] [address] #### 95295-4 #### [facility] ([id number]) [address] [place], [place] [address]PHAAFGWTBNI LYMPHOCYTES RELATIVE PERCENT BY MANUAL COUNT30 % NormalProMedica Downey Regional Medical CenterComchelsea hospital on above:Result Comment: This is an appended report. These results have been appended to a previously preliminary verified report.Performed By: #### CBCA, CMP, FEPR, 69188-7, TSHR, 2276-4, HA1C, 2284-8, 2131-10 #### [facility] ([id number]) [address], [address] [place] [address] #### 53882-6 #### [facility] ([id number]) [address] [place] [address] 47644EWOGNIWTIGN MONOCYTES ABSOLUTE COUNT (10*3/UL) IN BLOOD BY MANUAL COUNT0.7 10*3/uLNormal0.0-0.9[facility]ucl[facility] HospitalComment on above: Result Comment: This is an appended report. These results have been appended to a previously preliminary verified report.Performed By: #### CBCA, CMP, FEPR, 66583-6, TSHR, 2276-4, HA1C, 4-8, 2131-10 #### [facility] ([id number]) [address] [facility], [address] [place] [address] #### 77220-8 #### [facility] ([id number]) [address] [place] [address] 98907ETVBKFMTNBL MONOCYTES RELATIVE PERCENT BY MANUAL COUNT11 % NormalProPermian Regional Medical CenterComchelsea hospital on above:Result Comment: This is an appended report. These results have been appended to a previously preliminary verified report.Performed By: #### CBCA, CMP, FEPR, 03891-8, TSHR, 2276-4, HA1C, 2284-8, 2131-10 #### [facility] ([id number]) [address] [facility], [address] [place] [address] #### 59551-9 #### [facility] ([id number]) [address] [place], [place] [address]CQVQLZMVLYS NEUTROPHILS ABSOLUTE COUNT BY MANUAL COUNT3.2 10*3/uLNormal1.5-6.6[facility] on above:Result Comment: This is an appended report. These results have been appended to a previously preliminary verified report.Performed By: #### CBCA, CMP, FEPR, 45809-0, TSHR, 2276-4, HA1C, 2284-8, 9 #### [facility] ([id number]) [address] [place] [address], [address] [place] [address] #### 07717-2 #### [facility] ([id number]) [address] [place] [address] 89027GBGFVWPCMQG NEUTROPHILS RELATIVE PERCENT BY MANUAL COUNT53 % NormalProMidland Memorial Hospital on above:Result Comment: This is an appended report. These results have been appended to a previously preliminary verified report.Performed By: #### CBCA, CMP, FEPR, 26438-3, TSHR, 2276-4, HA1C, 2284-8, 2131-10 #### [facility] ([id number]) [address] [place] [address], [address] [place] [address] #### 18354-6 #### [facility] ([id number]) [address] [place] [address] 90240Cfrtwryuish distribution width (RBC) [Ratio]19.9 %High11.5-15 [facility] HospitalComchelsea hospital on above:Performed By: #### CBCA, CMP, FEPR, 61145-6, TSHR, 2276-4, HA1C, 2284-8, 9 #### [facility] ([id number]) [address] [place] [address], [address] [place] [address] #### 27608-2 #### [facility] ([id number]) [address] [place] [address] 85551Rlcbhtpykx (Bld) [Volume fraction]26.5 %Sta55-84QtaDdbtdqCleveland Clinic Euclid HospitalComchelsea hospital on above:Performed By: #### CBCA, CMP, FEPR, 05599-9, TSHR, 2276-4, HA1C, 2283-8, 2131-10 #### [facility] ([id number]) [address], [address] [place] [address] #### 84427-0 #### [facility] ([id number]) [address] [place] [address] 18131Admciljfan (Bld) [Mass/Vol]9.0 g/dLLow11.7-15.5PChildren's Hospital of ColumbusComment on above:Performed By: #### CBCA, CMP, FEPR, 15104-4, TSHR, 2276-4, HA1C, 2283-, 2131-10 #### [facility] ([id number]) [address], [address] [place] [address] #### 83149-2 #### [facility] ([id number]) [address] [place] [address] 23900CQL (RBC) [Entitic mass]29.4 ylPyznna58-12OldOsidmeCleveland Clinic Euclid HospitalComment on above:Performed By: #### CBCA, CMP, FEPR, 01641-8, TSHR, 2276-4, HA1C, 2283-, 2131-10 #### [facility] ([id number]) [address], [address] [place] [address] #### 48318-4 #### [facility] ([id number]) [address] [place] [address] 54265VRBB (RBC) [Mass/Vol]34.1 g/eNWqqzvz69-09CzeNwjgonPermian Regional Medical CenterComment on above:Performed By: #### CBCA, CMP, FEPR, 45498-1, TSHR, 2276-4, HA1C, 2283-8, 2131-10 #### [facility] ([id number]) [address], [address] [place] [address] #### 60438-6 #### [facility] ([id number]) [address] [place] [address] 96788VIT (RBC) [Entitic vol]86 cDBmvhyo09-568XtnEyirmp Fremont HospitalComment on above:Performed By: #### CBCA, CMP, FEPR, 19886-5, TSHR, 2276-4, HA1C, 2284-8, 2131-10 #### [facility] ([id number]) [address], [address] [place] [address] #### 54654-0 #### [facility] ([id number]) [address] [place] [address] 42164Gavrztyz mean volume (Bld) [Entitic vol]9.6 fLNormal7-12 [facility] CenterComment on above:Performed By: #### CBCA, CMP, FEPR, 22289-8, TSHR, 2276-4, HA1C, 2283-8, 2131-10 #### [facility] ([id number]) [address], [address] [place] [address] #### 24057-2 #### [facility] ([id number]) [address] [place] [address] 09470Qqarixxwe (Bld) [#/Vol]179 10*3/bWMocnsb518-922FjqItenys Fremont HospitalComment on above:Performed By: #### CBCA, CMP, FEPR, 60003-2, TSHR, 2276-4, HA1C, 2283-8, 2131-10 #### [facility] ([id number]) [address], [address] [place] [address] #### 17297-7 #### [facility] ([id number]) [address] [place] [address] 60314RRL COUNT3.08 X10E12/LLow3.8-5.2PChildren's Hospital of [facility] Comment on above:Performed By: #### CBCA, CMP, FEPR, 60328-1, TSHR, 2276-4, HA1C, 2283-8, 2131-10 #### [facility] ([id number]) [address], [address] [place] [address] #### 71222-0 #### [facility] ([id number]) [address] [place] [address] 75252ADB (Bld) [#/Vol]6.1 10*3/uLNormal4-11ProPermian Regional Medical CenterComment on above:Performed By: #### CBCA, CMP, FEPR, 22677-9, TSHR, 2276-4, HA1C, 2283-09, 2131-10 #### [facility] ([id number]) [address] [address], [address] [place] [address] #### 21646-4 #### [facility] ([id number]) [address] [place] [address] 60896WNCLNQJDFYBGL METABOLIC PANELon 60-29-0533Eoumsyv [Mass/Vol]2.2 g/dLLow3.2-5.3PChildren's Hospital of ColumbusComment on above:Performed By: #### CBCA, CMP, FEPR, 90781-6, TSHR, 2276-4, HA1C, 2283-, 2131-10 #### [facility] ([id number]) [address], [address] [place] [address] #### 82861-5 #### [facility] ([id number]) [address] [place] [address] 32890BKU [Catalytic activity/Vol]134 U/BBbjs89-046AxgHvefqbPermian Regional Medical CenterComment on above:Performed By: #### CBCA, CMP, FEPR, 92790-1, TSHR, 2276-4, HA1C, 2284-8, 2131-10 #### [facility] ([id number]) [address], [address] [place] [address] #### 36748-0 #### [facility] ([id number]) [address] [place] [address] 83351OCG [Catalytic activity/Vol]141 U/LHigh<=31Pro[facility] Medical CenterComment on above:Performed By: #### CBCA, CMP, FEPR, 57046-9, TSHR, 2276-4, HA1C, 2283-8, 2131-10 #### [facility] ([id number]) [address], [address] [place] [address] #### 83006-6 #### [facility] ([id number]) [address] [place] [address] 22825Ecdfy gap [Moles/Vol]6 mmol/LNormal5-15ProPermian Regional Medical CenterComment on above:Performed By: #### CBCA, CMP, FEPR, 61971-6, TSHR, 2276-4, HA1C, 2283-8, 2131-10 #### [facility] ([id number]) [address], [address] [place] [address] #### 08185-0 #### [facility] ([id number]) [address] [place] [address] 24128NTN [Catalytic activity/Vol]126 U/LHigh<=41ProPermian Regional Medical CenterComment on above:Performed By: #### CBCA, CMP, FEPR, 54964-6, TSHR, 2276-4, HA1C, 2283-8, 2131-10 #### [facility] [facility] ([id number]) [address], [address] [place] [address] #### 80483-0 #### [facility] ([id number]) [address] [place] [address] 64297Mefdfinra [Mass/Vol]0.9 mg/dLNormal0.3-1.2PChildren's Hospital of ColumbusComment on above:Performed By: #### CBCA, CMP, FEPR, 54211-4, TSHR, 2276-4, HA1C, 4-8, 2131-10 #### [facility] ([id number]) [address] [facility], [address] [place] [address] #### 22278-4 #### [facility] ([id number]) [address] [place] [address] 98406Jicanru [Mass/Vol]7.9 mg/dLLow8.5-10.5PChildren's Hospital of ColumbusComment on above:Performed By: #### CBCA, CMP, FEPR, 26652-3, TSHR, 2276-4, HA1C, 2283-, 2131-10 #### [facility] ([id number]) [address] [facility], [address] [place] [address] #### 94351-6 #### [facility] ([id number]) [address] [place] [address] 43148Pbdaoadu [Moles/Vol]106 mmol/EWbyaul15-363BegWzsugw [facility] CenterComment on above:Performed By: #### CBCA, CMP, FEPR, 70177-3, TSHR, 2276-4, HA1C, 2283-8, 2131-10 #### [facility] ([id number]) [address] [facility], [address] [place] [address] #### 37592-4 #### [facility] ([id number]) [address] [place] [address] 72367NL4 [Moles/Vol]24 mmol/SAaapkp40-46OdqRwffzfChildren's Hospital of Columbus Comment on above:Performed By: #### CBCA, CMP, FEPR, 16090-8, TSHR, 2276-4, HA1C, 2283-8, 2131-10 #### [facility] ([id number]) [address] [facility], [address] [address] #### 44456-6 #### [facility] ([id number]) [address] [place] [address] 61794Rlmgdxkgff [Mass/Vol]0.55 mg/dLNormal0.40-1.00ProPermian Regional Medical CenterComment on above:Result Comment: METHOD TRACEABLE TO IDMS STANDARD Performed By: #### CBCA, CMP, FEPR, 93178-9, TSHR, 2276-4, HA1C, 2283-, 2131-10 #### [facility] ([id number]) [address] [place] [address] #### 56935-8 #### [facility] ([id number]) [address] [place] [address] 54822MRON (CKD-EPI) NON-RACE DEPENDENT>^90Normal>=60C[facility] Euclid HospitalComment on above:Result Comment: eGFR not reported due to non- numeric value for Creatinine. Reported eGFR is based on the CKD-EPI 2020 equation that does not use a race coefficient.Performed By: #### CBCA, CMP, FEPR, 41804-9, TSHR, 2276-4, HA1C, 2283-09, 2131-10 #### [facility] ([id number]) [address] [place] [address], [facility] [address] [place] [address] #### 56299-6 #### [facility] ([id number]) [address] [place] [address] 37031Ovmyyir [Mass/Vol]89 mg/lLHmuvdi86-13PakGczumiCleveland Clinic Euclid Hospital Comment on above:Performed By: #### CBCA, CMP, FEPR, 34494-1, TSHR, 2276-4, HA1C, 2283-, 2131-10 #### [facility] ([id number]) [address], [address] [place] [address] #### 89712-8 #### [facility] ([id number]) [address] [place] [address] 47948Hcuqtrilv [Moles/Vol]3.9 mmol/LNormal3.5-5.0ProPermian Regional Medical CenterComment on above:Performed By: #### CBCA, CMP, FEPR, 17705-8, TSHR, 2276-4, HA1C, 2283-09, 2131-10 #### [facility] ([id number]) [address], [address] [place] [address] #### 91977-9 #### [facility] ([id number]) [address] [place] [address] 76500Bkwkbuw [Mass/Vol]5.9 g/dLLow6.0-8.0ProPermian Regional Medical Center Comment on above:Performed By: #### CBCA, CMP, FEPR, 47280-8, TSHR, 2276-4, HA1C, 2283-09, 2131-10 #### [facility] ([id number]) [address], [address] [place] [address] #### 95922-0 #### [facility] ([id number]) [address] [place] [address] 52423Docyxs [Moles/Vol]136 mmol/MLacyce923-634VptNgpkkb Fremont HospitalComment on above:Performed By: #### CBCA, CMP, FEPR, 81668-0, TSHR, 2276-4, HA1C, 2283-09, 2131-10 #### [facility] ([id number]) [address], [address] [place] [address] #### 18833-8 #### [facility] ([id number]) [address] [place] [address] 35461Kcva nitrogen [Mass/Vol]10 mg/dLNormal5-27ProPermian Regional Medical CenterComment on above:Performed By: #### CBCA, CMP, FEPR, 05439-1, TSHR, 2276-4, HA1C, 2284-8, 2131-10 #### [facility] ([id number]) [address] [place] [address], [address] [place] [address] #### 83061-5 #### [facility] ([id number]) [address] [place] [address] 89849ELSJNGGNKhs 90-37-4429Hwhonarxq [Mass/Vol]1.6 mg/dLLow1.8-2.6 [facility] Medical CenterComment on above:Performed By: #### CBCA, CMP, FEPR, 15068-6, TSHR, 2276-4, HA1C, 2283-8, 2131-10 #### [facility] ([id number]) [address] [place] [address], [address] [place] [address] #### 71711-2 #### [facility] ([id number]) [address] [place] [address] 88745UXXQMD BLOOD X 1, STOOLon 51-05-6309MCUVO OCCULT BLOODPositive AbnormalNegativeProPermian Regional Medical CenterComment on above:Performed By: #### CBCA, CMP, FEPR, 37550-9, TSHR, 2276-4, HA1C, 2283-8, 2131-10 #### [facility] ([id number]) [address] [place] [address], [address] [place] [address] #### 82813-2 #### [facility] ([id number]) [address] [place] [address] 28104KHCPXUGJXYsb 20-05-1136Usiktsdrt [Mass/Vol]2.5 mg/dLNormal 2.4-4.9C[facility] Clinic Euclid HospitalComment on above:Performed By: #### CBCA, CMP, FEPR, 85446-7, TSHR, 2276-4, HA1C, 2283-09, 2131-10 #### [facility] ([id number]) [address] [facility], [address] [place] [address] #### 60829-2 #### [facility] ([id number]) [address] [place] [address] 78981BRKWBDP GLUCOSEon 54-06-8208Wnfigzh [Mass/Vol]111 mg/dLHigh 65-99ProPermian Regional Medical CenterComment on above:Performed By: #### CBCA, CMP, FEPR, 84866-6, TSHR, 2276-4, HA1C, 2283-09, 2131-10 #### [facility] ([id number]) [address] [facility], [address] [place] [address] #### 70305-5 #### [facility] ([id number]) [address] [place] [address] 53077Gntzhdi [Mass/Vol]151 mg/mQAdkt16-76GvvHnmhsxCleveland Clinic Euclid Hospital Comment on above:Performed By: #### CBCA, CMP, FEPR, 91637-4, TSHR, 2276-4, HA1C, 2283-09, 2131-10 #### [facility] ([id number]) [address] [facility], [address] [place] [address] #### 94969-6 #### [facility] ([id number]) [address] [place] [address] 97145Ewizmbl [Mass/Vol]169 mg/xSLpvk45-34BxhGkgzdvCleveland Clinic Euclid Hospital Comment on above:Performed By: #### CBCA, CMP, FEPR, 27078-8, TSHR, 2276-4, HA1C, 2283-09, 2131-10 #### [facility] ([id number]) [address], [address] [place] [address] #### 19115-1 #### [facility] ([id number]) [address] [place] [address] 19426Wpkeetm [Mass/Vol]92 mg/xLUkdhah89-24TitFnhradCleveland Clinic Euclid Hospital Comment on above:Performed By: #### CBCA, CMP, FEPR, 28868-2, TSHR, 2276-4, HA1C, 2283-09, 2131-10 #### [facility] ([id number]) [address], [address] [place] [address] #### 56334-1 #### [facility] ([id number]) [address] [place] [address] 31275Dasoahs [Mass/Vol]152 mg/oMEzuz72-51PjnRdfcvnCleveland Clinic Euclid Hospital Comment on above:Performed By: #### CBCA, CMP, FEPR, 74534-9, TSHR, 2276-4, HA1C, 2283-09, 2131-10 #### [facility] ([id number]) [address], [address] [place] [address] #### 00294-8 #### [facility] ([id number]) [address] [place] [address] 48991DGZ WITH AUTO DIFFERENTIALon 85-92-1694IISJOVQDU ABSOLUTE COUNT (10*3/UL) BY AUTOMATED COUNT0.0 10*3/uLNormal0.0-0.2PChildren's Hospital of Columbus Comment on above:Performed By: #### CBCA, CMP, FEPR, 90798-5, TSHR, 2276-4, HA1C, 2283-09, 2131-10 #### [facility] ([id number]) [address], [address] [place] [address] #### 70885-3 #### [facility] ([id number]) [address] [place] [address] 90330GBEAAOFBY RELATIVE PERCENT BY AUTOMATED COUNT0.7 %Normal [facility] HospitalComment on above:Performed By: #### CBCA, CMP, FEPR, 97476-3, TSHR, 2276-4, HA1C, 2284-8, 2131-10 #### [facility] ([id number]) [address] [place] [address], [address] [place] [address] #### 73353-8 #### [facility] ([id number]) [address] [place] [address] 41263VFDNOZUETBE DIFFERENTIAL TYPEAUTOMATED DIFFERENTIALNormal [facility] HospitalComment on above:Performed By: #### CBCA, CMP, FEPR, 07084-5, TSHR, 2276-4, HA1C, 2284-8, 2131-10 #### [facility] ([id number]) [address] [facility], [address] [place] [address] #### 46772-4 #### [facility] ([id number]) [address] [place] [address] 55929Eshrokolxgf (Bld) [#/Vol]0.1 10*3/uLNormal0.0-0.4ProMedica [facility] Regional Medical CenterComment on above:Performed By: #### CBCA, CMP, FEPR, 16296-5, TSHR, 2276-4, HA1C, 2284-8, 2131-10 #### [facility] ([id number]) [address] [place] [address], [address] [place] [address] #### 59787-3 #### [facility] ([id number]) [address] [place] [address] 91167QTXBRTGSHZX RELATIVE PERCENT BY AUTOMATED COUNT2.5 %Normal [facility] HospitalComment on above:Performed By: #### CBCA, CMP, FEPR, 75437-8, TSHR, 2276-4, HA1C, 2283-8, 2131-10 #### [facility] ([id number]) [address], [address] [place] [address] #### 71459-3 #### [facility] ([id number]) [address] [place] [address] 87315Woxnsolxnar distribution width (RBC) [Ratio]19.5 %High11.5-15 [facility] Medical CenterComment on above:Performed By: #### CBCA, CMP, FEPR, 77723-4, TSHR, 2276-4, HA1C, 2283-09, 2131-10 #### [facility] ([id number]) [address], [address] [place] [address] #### 85750-1 #### [facility] ([id number]) [address] [place] [address] 07407Znasalggow (Bld) [Volume fraction]20.6 %Tka78-64SxlTxqnyh [facility] Medical CenterComment on above:Performed By: #### CBCA, CMP, FEPR, 57188-6, TSHR, 2276-4, HA1C, 2283-, 2131-10 #### [facility] ([id number]) [address], [address] [place] [address] #### 09635-5 #### [facility] ([id number]) [address] [place] [address] 93499Bnylytvhbf (Bld) [Mass/Vol]7.0 g/dLLow11.7-15.5ProMedica [facility]ney Regional Medical CenterComment on above:Performed By: #### CBCA, CMP, FEPR, 18007-5, TSHR, 2276-4, HA1C, 2283-, 2131-10 #### [facility] ([id number]) [address], [address] [place] [address] #### 75990-7 #### [facility] ([id number]) [address] [place] [address] [id number] ABSOLUTE COUNT (10*3/UL) BY AUTOMATED COUNT1.6 10*3/uLNormal1.0-3.5Pro[facility]ica [facility] Medical CenterComment on above:Performed By: #### CBCA, CMP, FEPR, 80532-0, TSHR, 2276-4, HA1C, 2284-8, 2131-9 #### [facility] ([id number]) [address] [facility], [address] [place] [address] #### 86718-9 #### [facility] ([id number]) [address] [place] [address] 54146TRJUTUNOSTT RELATIVE PERCENT BY AUTOMATED COUNT32.0 %Normal [facility] Medical CenterComment on above:Performed By: #### CBCA, CMP, FEPR, 55977-4, TSHR, 2276-4, HA1C, 2284-8, 2131-10 #### [facility] ([id number]) [address] [facility], [address] [place] [address] #### 41908-5 #### [facility] ([id number]) [address] [place] [address] 52995JDQ (RBC) [Entitic mass]30.6 vrPoaxeb67-41TulBomcxl [facility] CenterComment on above:Performed By: #### CBCA, CMP, FEPR, 73567-6, TSHR, 2276-4, HA1C, 2284-8, 2131-10 #### [facility] ([id number]) [address] [facility], [address] [place] [address] #### 96881-1 #### [facility] ([id number]) [address] [place], [place] [address]JRRF (RBC) [Mass/Vol]34.2 g/zRDsymat86-60FubNrgauxPermian Regional Medical CenterComment on above:Performed By: #### CBCA, CMP, FEPR, 61967-4, TSHR, 2276-4, HA1C, 2283-8, 2131-10 #### [facility] ([id number]) [address], [address] [place] [address] #### 22046-1 #### [facility] ([id number]) [address] [place] [address] 88305YTK (RBC) [Entitic vol]90 nOCqwhdb13-304EogPsbwey [facility] HospitalComment on above:Performed By: #### CBCA, CMP, FEPR, 59522-5, TSHR, 2276-4, HA1C, 2283-09, 2131-10 #### [facility] ([id number]) [address], [address] [place] [address] #### 09154-5 #### [facility] ([id number]) [address] [place] [address] 26119CSJEHMQZG ABSOLUTE COUNT (10*3/UL) BY AUTOMATED COUNT0.6 10*3/uLNormal0.0-0.9ProPermian Regional Medical CenterComment on above:Performed By: #### CBCA, CMP, FEPR, 65965-3, TSHR, 2276-4, HA1C, 2283-, 2131-10 #### [facility] ([id number]) [address], [address] [place] [address] #### 86647-4 #### [facility] ([id number]) [address] [place] [address] 22439EEHTIUDDP RELATIVE PERCENT BY AUTOMATED COUNT11.7 %Normal [facility] Medical CenterComment on above:Performed By: #### CBCA, CMP, FEPR, 41938-8, TSHR, 2276-4, HA1C, 2284-8, 2131-10 #### [facility] ([id number]) [address], [address] [place] [address] #### 63174-1 #### [facility] ([id number]) [address] [place] [address] 40837NOXHUMJGVOH ABSOLUTE COUNT BY AUTOMATED COUNT2.7 10*3/uLNormal 1.5-6.6ProWadsworth-Rittman Hospitalca [facility] Medical CenterComment on above:Performed By: #### CBCA, CMP, FEPR, 09438-8, TSHR, 2276-4, HA1C, 4-8, 2131-10 #### [facility] ([id number]) [address] [facility], [address] [place] [address] #### 27915-1 #### [facility] ([id number]) [address] [place] [address] 95559CZVFQODMYWL RELATIVE PERCENT BY AUTOMATED COUNT53.1 %Normal [facility] HospitalComment on above:Performed By: #### CBCA, CMP, FEPR, 98929-3, TSHR, 2276-4, HA1C, 2283-, 2131-10 #### [facility] ([id number]) [address] [facility], [address] [place] [address] #### 22688-4 #### [facility] ([id number]) [address] [place] [address] 57861Pfadlvnb mean volume (Bld) [Entitic vol]9.6 fLNormal7-12 [facility] HospitalComment on above:Performed By: #### CBCA, CMP, FEPR, 28104-8, TSHR, 2276-4, HA1C, 2284-8, 2131-10 #### [facility] ([id number]) [address], [address] [place] [address] #### 56496-2 #### [facility] ([id number]) [address] [place] [address] 56822Umyflixbq (Bld) [#/Vol]149 10*3/bMZrn827-036IsdKtrbliPermian Regional Medical CenterComment on above:Performed By: #### CBCA, CMP, FEPR, 52781-7, TSHR, 2276-4, HA1C, 2284-8, 9 #### [facility] ([id number]) [address], [address] [place] [address] #### 72535-1 #### [facility] ([id number]) [address] [place] [address] [id number] COUNT2.30 X10E12/LLow3.8-5.2PChildren's Hospital of [facility] Comment on above:Performed By: #### CBCA, CMP, FEPR, 10021-1, TSHR, 2276-4, HA1C, 2284-8, 2131-10 #### [facility] ([id number]) [address] [facility], [address] [place] [address] #### 97089-6 #### [facility] ([id number]) [address] [place] [address] 42218YDG (Bld) [#/Vol]5.1 10*3/uLNormal4-11ProPermian Regional Medical CenterComment on above:Performed By: #### CBCA, CMP, FEPR, 87403-8, TSHR, 2276-4, HA1C, 2284-8, 2131-9 #### [facility] ([id number]) [address], [address] [place] [address] #### 33625-2 #### [facility] ([id number]) [address] [place] [address] 87069BNOSQNTGYUGUD METABOLIC PANELon 49-21-3180Agkgrsx [Mass/Vol]2.1 g/dLLow3.2-5.3PChildren's Hospital of ColumbusComment on above:Performed By: #### CBCA, CMP, FEPR, 12052-3, TSHR, 2276-4, HA1C, 2283-, 2131-10 #### [facility] ([id number]) [address] [place] [address], [address] [place] [address] #### 62337-1 #### [facility] ([id number]) [address] [place] [address] 72653HJW [Catalytic activity/Vol]118 U/VNqesrt55-624TxhTfxgtwPermian Regional Medical CenterComment on above:Performed By: #### CBCA, CMP, FEPR, 12956-4, TSHR, 2276-4, HA1C, 2283-09, 2131-10 #### [facility] ([id number]) [address] [place] [address], [address] [place] [address] #### 41820-0 #### [facility] ([id number]) [address] [place] [address] 56258QJC [Catalytic activity/Vol]125 U/LHigh<=31PChildren's Hospital of ColumbusComment on above:Performed By: #### CBCA, CMP, FEPR, 38271-9, TSHR, 2276-4, HA1C, 2283-09, 2131-10 #### [facility] ([id number]) [address] [place] [address], [address] [place] [address] #### 95706-1 #### [facility] ([id number]) [address] [place] [address] 74440Puwsh gap [Moles/Vol]4 mmol/LLow5-15ProPerm[facility] Comment on above:Performed By: #### CBCA, CMP, FEPR, 09369-2, TSHR, 2276-4, HA1C, 2283-09, 2131-10 #### [facility] ([id number]) [address], [address] [place] [address] #### 14665-4 #### [facility] ([id number]) [address] [place] [address] 29370PNR [Catalytic activity/Vol]61 U/LHigh<=41Pro[facility] Medical CenterComment on above:Performed By: #### CBCA, CMP, FEPR, 64430-0, TSHR, 2276-4, HA1C, 2283-09, 2131-10 #### [facility] ([id number]) [address], [address] [place] [address] #### 53125-2 #### [facility] ([id number]) [address] [place] [address] 54833Otwwiugul [Mass/Vol]0.9 mg/dLNormal0.3-1.2PChildren's Hospital of ColumbusComment on above:Performed By: #### CBCA, CMP, FEPR, 92914-8, TSHR, 2276-4, HA1C, 2283-09, 2131-10 #### [facility] ([id number]) [address], [address] [place] [address] #### 53391-8 #### [facility] ([id number]) [address] [place] [address] 17354Vpptead [Mass/Vol]7.6 mg/dLLow8.5-10.5PChildren's Hospital of ColumbusComment on above:Performed By: #### CBCA, CMP, FEPR, 97101-6, TSHR, 2276-4, HA1C, 2283-09, 2131-10 #### [facility] ([id number]) [address], [address] [place] [address] #### 96376-2 #### [facility] ([id number]) [address] [place] [address] 51638Cairvyqn [Moles/Vol]103 mmol/FBeionu83-950TsdQuokbjCleveland Clinic Euclid HospitalComment on above:Performed By: #### CBCA, CMP, FEPR, 12067-6, TSHR, 2276-4, HA1C, 2284-8, 2131-10 #### [facility] ([id number]) [address], [address] [place] [address] #### 02326-5 #### [facility] ([id number]) [address] [place] [address] 01694TD9 [Moles/Vol]25 mmol/MBqdrzk11-87IhbHkajmsChildren's Hospital of Columbus Comment on above:Performed By: #### CBCA, CMP, FEPR, 34847-2, TSHR, 2276-4, HA1C, 4-8, 2131-10 #### [facility] ([id number]) [address], [address] [place] [address] #### 15719-3 #### [facility] ([id number]) [address] [place] [address] 07291Jksoylrhqi [Mass/Vol]0.59 mg/dLNormal0.40-1.00[facility]ucl[facility] HospitalComment on above:Result Comment: METHOD TRACEABLE TO IDMS STANDARD Performed By: #### CBCA, CMP, FEPR, 77247-3, TSHR, 2276-4, HA1C, 2284-8, 2131-10 #### [facility] ([id number]) [address], [address] [place] [address] #### 01342-6 #### [facility] ([id number]) [address] [place] [address] 65087PPBR (CKD-EPI) NON-RACE DEPENDENT>^90Normal>=60ProPermian Regional Medical CenterComment on above:Result Comment: eGFR not reported due to non- numeric value for Creatinine. Reported eGFR is based on the CKD-EPI 2020 equation that does not use a race coefficient.Performed By: #### CBCA, CMP, FEPR, 87963-7, TSHR, 2276-4, HA1C, 2283-09, 2131-10 #### [facility] ([id number]) [address], [address] [place] [address] #### 10692-0 #### [facility] ([id number]) [address] [place] [address] 53254Qdsrmoz [Mass/Vol]141 mg/yEUdxt07-05GbhGvkjqaCleveland Clinic Euclid Hospital Comment on above:Performed By: #### CBCA, CMP, FEPR, 38067-1, TSHR, 2276-4, HA1C, 2283-09, 2131-10 #### [facility] ([id number]) [address], [address] [place] [address] #### 06172-2 #### [facility] ([id number]) [address] [place] [address] 08854Ehlnfvggg [Moles/Vol]3.8 mmol/LNormal3.5-5.0[facility]ucl[facility] HospitalComment on above:Performed By: #### CBCA, CMP, FEPR, 36461-5, TSHR, 2276-4, HA1C, 2283-09, 2131-10 #### [facility] ([id number]) [address], [address] [place] [address] #### 58009-1 #### [facility] ([id number]) [address] [place] [address] 26525Lqqrgqg [Mass/Vol]5.8 g/dLLow6.0-8.0[facility] Comment on above:Performed By: #### CBCA, CMP, FEPR, 16948-2, TSHR, 2276-4, HA1C, 2283-09, 2131-10 #### [facility] ([id number]) [address], [address] [place] [address] #### 31174-2 #### [facility] ([id number]) [address] [place] [address] 69891Kqtzvl [Moles/Vol]132 mmol/OJue605-436YkaHkvtpsPermian Regional Medical CenterComment on above:Performed By: #### CBCA, CMP, FEPR, 88975-6, TSHR, 2276-4, HA1C, 2283-09, 2131-10 #### [facility] ([id number]) [address], [address] [place] [address] #### 28972-9 #### [facility] ([id number]) [address] [place] [address] 58907Ckal nitrogen [Mass/Vol]12 mg/dLNormal5-27ProPermian Regional Medical CenterComment on above:Performed By: #### CBCA, CMP, FEPR, 72293-9, TSHR, 6-4, HA1C, 2283-09, 2131-10 #### [facility] ([id number]) [address], [address] [place] [address] #### 43056-1 #### [facility] ([id number]) [address] [place] [address] [id number] AND HEMATOCRIT, BLOODon [id number] (Bld) [Volume fraction]26.0 %Tbt48-73HcvJyqsaqPermian Regional Medical CenterComment on above: Performed By: #### CBCA, CMP, FEPR, 78397-0, TSHR, 2276-4, HA1C, 2283-09, 2131-10 #### [facility] ([id number]) [address], [address] [place] [address] #### 88725-4 #### [facility] ([id number]) [address] [place] [address] 29325Boffeqlezw (Bld) [Mass/Vol]8.7 g/dLLow11.7-15.5Pro[facility] Regional Medical CenterComment on above:Performed By: #### CBCA, CMP, FEPR, 56791-1, TSHR, 2276-4, HA1C, 2284-8, 9 #### [facility] ([id number]) [address] [place] [address], [address] [place] [address] #### 71001-4 #### [facility] ([id number]) [address] [place] [address] [id number] 69-53-2332Cpqzblgjf [Mass/Vol]1.6 mg/dLLow1.8-2.6 [facility] Medical CenterComment on above:Performed By: #### CBCA, CMP, FEPR, 24701-1, TSHR, 2276-4, HA1C, 2283-8, 2131-10 #### [facility] ([id number]) [address] [place] [address], [address] [place] [address] #### 60376-7 #### [facility] ([id number]) [address] [place] [address] 21994QBKGXRYRIDkw 52-41-9215Gzwmzlqbe [Mass/Vol]3.1 mg/dLNormal 2.4-4.9[facility] Medical CenterComment on above:Performed By: #### CBCA, CMP, FEPR, 55590-6, TSHR, 2276-4, HA1C, 2283-8, 2131-10 #### [facility] ([id number]) [address] [place] [address], [address] [place], [place] [address] #### 03534-6 #### [facility] ([id number]) [address] [place] [address] 07160UVTCOOH GLUCOSEon 92-49-1000Wjxmvvr [Mass/Vol]152 mg/dLHigh 65-99ProMedica [facility] Medical CenterComment on above:Performed By: #### CBCA, CMP, FEPR, 05362-8, TSHR, 2276-4, HA1C, 228-8, 2131-10 #### [facility] ([id number]) [address] [facility], [address] [place] [address] #### 79684-3 #### [facility] ([id number]) [address] [place] [address] 49202QJP WITH AUTO DIFFERENTIALon 31-86-4165ZXJHPKRTG ABSOLUTE COUNT (10*3/UL) BY AUTOMATED COUNT0.0 10*3/uLNormal0.0-0.2PChildren[facility] Comment on above:Performed By: #### CBCA, CMP, FEPR, 44331-5, TSHR, 2276-4, HA1C, 2283-09, 2131-10 #### [facility] ([id number]) [address] [facility], [address] [place] [address] #### 84641-5 #### [facility] ([id number]) [address] [place] [address] 70540CAYURGTJC RELATIVE PERCENT BY AUTOMATED COUNT0.4 %Normal [facility] HospitalComment on above:Performed By: #### CBCA, CMP, FEPR, 84182-4, TSHR, 2276-4, HA1C, 2283-, 2131-10 #### [facility] ([id number]) [address] [facility], [address] [place] [address] #### 21737-2 #### [facility] ([id number]) [address] [place] [address] 77968QGJFOGPQEVJ DIFFERENTIAL TYPEAUTOMATED DIFFERENTIALNormal ProMPromise Hospital of East Los AngelesComment on above:Performed By: #### CBCA, CMP, FEPR, 69240-9, TSHR, 2276-4, HA1C, 2284-8, 2131-10 #### [facility] ([id number]) [address], [address] [place] [address] #### 84749-8 #### [facility] ([id number]) [address] [place] [address] 24659Oautyakffdn (Bld) [#/Vol]0.1 10*3/uLNormal0.0-0.4ProWadsworth-Rittman Hospitalca [facility] Medical CenterComment on above:Performed By: #### CBCA, CMP, FEPR, 92847-6, TSHR, 2276-4, HA1C, 2283-8, 2131-10 #### [facility] ([id number]) [address] [facility], [address] [place] [address] #### 94731-8 #### [facility] ([id number]) [address] [place] [address] 42651HEGKLCYTPGL RELATIVE PERCENT BY AUTOMATED COUNT2.2 %Normal [facility] HospitalComment on above:Performed By: #### CBCA, CMP, FEPR, 45738-1, TSHR, 2276-4, HA1C, 2283-, 2131-10 #### [facility] ([id number]) [address], [address] [place] [address] #### 83746-2 #### [facility] ([id number]) [address] [place] [address] 21315Sbigfzozsow distribution width (RBC) [Ratio]18.7 %High11.5-15 [facility] HospitalComment on above:Performed By: #### CBCA, CMP, FEPR, 11100-6, TSHR, 2276-4, HA1C, 2283-8, 2131-10 #### [facility] ([id number]) [address], [address] [place] [address] #### 95916-5 #### [facility] ([id number]) [address] [place] [address] 91708Ulefaacdap (Bld) [Volume fraction]22.5 %Qgg68-21NplSzjogs [facility] Medical CenterComment on above:Performed By: #### CBCA, CMP, FEPR, 70585-2, TSHR, 2276-4, HA1C, 2284-8, 2131-10 #### [facility] ([id number]) [address], [address] [place] [address] #### 90418-2 #### [facility] ([id number]) [address] [place] [address] 26416Qxjwdtquff (Bld) [Mass/Vol]7.7 g/dLLow11.7-15.5PChildren's Hospital of ColumbusComment on above:Performed By: #### CBCA, CMP, FEPR, 96802-6, TSHR, 2276-4, HA1C, 2283-8, 2131-10 #### [facility] ([id number]) [address], [address] [place] [address] #### 12639-6 #### [facility] ([id number]) [address] [place] [address] 61668RXVDLCQRJAP ABSOLUTE COUNT (10*3/UL) BY AUTOMATED COUNT2.0 10*3/uLNormal1.0-3.5PChildren's Hospital of ColumbusComment on above:Performed By: #### CBCA, CMP, FEPR, 73092-3, TSHR, 2276-4, HA1C, 4-8, 2131-10 #### [facility] ([id number]) [address], [address] [place] [address] #### 41948-8 #### [facility] ([id number]) [address] [place] [address] 23178KXAEHDWIFDH RELATIVE PERCENT BY AUTOMATED COUNT29.9 %Normal ProMselect specialty hospitala [facility] Medical CenterComment on above:Performed By: #### CBCA, CMP, FEPR, 75423-6, TSHR, 2276-4, HA1C, 4-8, 2131-10 #### [facility] ([id number]) [address], [address] [place] [address] #### 12870-1 #### [facility] ([id number]) [address] [place] [address] 82852JKT (RBC) [Entitic mass]30.2 itNqtolx12-38MnbUcskqoPermian Regional Medical CenterComment on above:Performed By: #### CBCA, CMP, FEPR, 41940-6, TSHR, 2276-4, HA1C, 2283-, 2131-10 #### [facility] ([id number]) [address], [address] [place] [address] #### 95379-0 #### [facility] ([id number]) [address] [place] [address] 89344NECB (RBC) [Mass/Vol]34.1 g/lTKvfule27-64MexZdiawlPermian Regional Medical CenterComment on above:Performed By: #### CBCA, CMP, FEPR, 03921-5, TSHR, 2276-4, HA1C, 2283-, 2131-10 #### [facility] ([id number]) [address], [address] [place] [address] #### 50951-7 #### [facility] ([id number]) [address] [place] [address] 55140YZX (RBC) [Entitic vol]89 oNAqlwuh93-237BotVauqfz [facility]remont HospitalComment on above:Performed By: #### CBCA, CMP, FEPR, 44882-5, TSHR, 2276-4, HA1C, 2284-8, 2131-10 #### [facility] ([id number]) [address], [address] [place] [address] #### 59458-9 #### [facility] ([id number]) [address] [place] [address] 34920PYHLNITRD ABSOLUTE COUNT (10*3/UL) BY AUTOMATED COUNT0.8 10*3/uLNormal0.0-0.9ProPermian Regional Medical CenterComment on above:Performed By: #### CBCA, CMP, FEPR, 48932-3, TSHR, 2276-4, HA1C, 2283-8, 2131-10 #### [facility] ([id number]) [address], [address] [place] [address] #### 45106-8 #### [facility] ([id number]) [address] [place] [address] 87076JJFBZXNWP RELATIVE PERCENT BY AUTOMATED COUNT12.5 %Normal ProMPromise Hospital of East Los AngelesComment on above:Performed By: #### CBCA, CMP, FEPR, 13865-4, TSHR, 2276-4, HA1C, 2283-, 2131-10 #### [facility] ([id number]) [address], [address] [place] [address] #### 40039-6 #### [facility] ([id number]) [address] [place] [address] 09824RVNUKJKHVIL ABSOLUTE COUNT BY AUTOMATED COUNT3.7 10*3/uLNormal 1.5-6.6ProPermian Regional Medical CenterComchelsea hospital on above:Performed By: #### CBCA, CMP, FEPR, 36168-4, TSHR, 2276-4, HA1C, 2283-8, 2131-10 #### [facility] ([id number]) [address], [address] [place] [address] #### 79584-7 #### [facility] ([id number]) [address] [place] [address] 79698UDITGXLDAOV RELATIVE PERCENT BY AUTOMATED COUNT55.0 %Normal [facility] HospitalComment on above:Performed By: #### CBCA, CMP, FEPR, 33927-6, TSHR, 2276-4, HA1C, 2284-8, 2131- #### [facility] ([id number]) [address] [facility], [address] [place] [address] #### 87936-4 #### [facility] ([id number]) [address] [place] [address] 82094Mavhxofj mean volume (Bld) [Entitic vol]10.0 fLNormal7-12 [facility] HospitalComment on above:Performed By: #### CBCA, CMP, FEPR, 48536-9, TSHR, 2276-4, HA1C, 2284-8, 2131-10 #### [facility] ([id number]) [address] [facility], [address] [place] [address] #### 12147-8 #### [facility] ([id number]) [address] [place] [address] 49038Pwrqbpmiz (Bld) [#/Vol]136 10*3/jLFgo762-165BobVyunxf [facility] CenterComment on above:Performed By: #### CBCA, CMP, FEPR, 79875-2, TSHR, 2276-4, HA1C, 2284-8, 2131-10 #### [facility] ([id number]) [address] [facility], [address] [place] [address] #### 66176-3 #### [facility] ([id number]) [address] [place] [address] 31625LYZ COUNT2.54 X10E12/LLow3.8-5.2[facility] Comment on above:Performed By: #### CBCA, CMP, FEPR, 60712-1, TSHR, 2276-4, HA1C, 2283-09, 2131-10 #### [facility] ([id number]) [address], [address] [place] [address] #### 71186-5 #### [facility] ([id number]) [address] [place] [address] 08122KIE (Bld) [#/Vol]6.7 10*3/uLNormal4-11ProPermian Regional Medical CenterComment on above:Performed By: #### CBCA, CMP, FEPR, 73586-6, TSHR, 2276-4, HA1C, 2283-09, 2131-10 #### [facility] ([id number]) [address], [address] [place] [address] #### 16715-9 #### [facility] ([id number]) [address] [place] [address] 15271ZYHAJYBXFAXIS METABOLIC PANELon 07-75-6207Gplfweq [Mass/Vol]2.2 g/dLLow3.2-5.3PChildren's Hospital of ColumbusComment on above:Performed By: #### CBCA, CMP, FEPR, 03875-8, TSHR, 2276-4, HA1C, 2283-09, 2131-10 #### [facility] ([id number]) [address], [address] [place] [address] #### 13357-4 #### [facility] ([id number]) [address] [place] [address] 81115WRW [Catalytic activity/Vol]140 U/WItwn15-145WylMpxdlnPermian Regional Medical CenterComment on above:Performed By: #### CBCA, CMP, FEPR, 78657-7, TSHR, 2276-4, HA1C, 2283-09, 2131-10 #### [facility] ([id number]) [address], [address] [place] [address] #### 54717-8 #### [facility] ([id number]) [address] [place] [address] 48980LTZ [Catalytic activity/Vol]170 U/LHigh<=31ProMedica [facility] Medical CenterComment on above:Performed By: #### CBCA, CMP, FEPR, 44336-4, TSHR, 2276-4, HA1C, 2283-09, 2131-10 #### [facility] ([id number]) [address], [address] [place] [address] #### 57780-2 #### [facility] ([id number]) [address] [place] [address] 92531Kwfrz gap [Moles/Vol]6 mmol/LNormal5-15ProPermian Regional Medical CenterComment on above:Performed By: #### CBCA, CMP, FEPR, 78526-5, TSHR, 2276-4, HA1C, 2283-09, 2131-10 #### [facility] ([id number]) [address], [address] [place] [address] #### 67827-0 #### [facility] ([id number]) [address] [place] [address] 69929XSR [Catalytic activity/Vol]78 U/LHigh<=41ProPermian Regional Medical CenterComment on above:Performed By: #### CBCA, CMP, FEPR, 84189-1, TSHR, 2276-4, HA1C, 2283-09, 2131-10 #### [facility] ([id number]) [address], [address] [place] [address] #### 38689-6 #### [facility] ([id number]) [address] [place] [address] [place] [address]Zybqolroi [Mass/Vol]0.8 mg/dLNormal0.3-1.2PChildren's Hospital of ColumbusComment on above:Performed By: #### CBCA, CMP, FEPR, 84520-9, TSHR, 2276-4, HA1C, 2283-8, 2131-10 #### [facility] ([id number]) [address] [facility], [address] [place] [address] #### 97155-7 #### [facility] ([id number]) [address] [place] [address] 00291Ywyhbvz [Mass/Vol]7.7 mg/dLLow8.5-10.5PChildren's Hospital of ColumbusComment on above:Performed By: #### CBCA, CMP, FEPR, 44597-7, TSHR, 2276-4, HA1C, 2283-09, 2131-10 #### [facility] ([id number]) [address] [facility], [address] [place] [address] #### 46172-6 #### [facility] ([id number]) [address] [place] [address] 71728Ygqorgul [Moles/Vol]103 mmol/AJgxyke07-316DjiNsgguh [facility] CenterComment on above:Performed By: #### CBCA, CMP, FEPR, 99725-8, TSHR, 2276-4, HA1C, 2283-8, 2131-10 #### [facility] ([id number]) [address] [facility], [address] [place] [address] #### 11248-2 #### [facility] ([id number]) [address] [place] [address] 60036UM9 [Moles/Vol]24 mmol/CVfaxya58-00LysGhihjtChildren's Hospital of Columbus Comment on above:Performed By: #### CBCA, CMP, FEPR, 96762-6, TSHR, 2276-4, HA1C, 2284-8, 2131-10 #### [facility] ([id number]) [address] [facility], [address] [place] [address] #### 62928-6 #### [facility] ([id number]) [address] [place], [place] [address]Puntcztxps [Mass/Vol]0.60 mg/dLNormal0.40-1.00ProPermian Regional Medical CenterComment on above:Result Comment: METHOD TRACEABLE TO IDMS STANDARD Performed By: #### CBCA, CMP, FEPR, 06262-3, TSHR, 6-4, HA1C, 2283-09, 2131-10 #### [facility] ([id number]) [address] [facility], [address] [place] [address] #### 04915-3 #### [facility] ([id number]) [address] [place] [address] 85784FQYU (CKD-EPI) NON-RACE DEPENDENT>^90Normal>=60ProPermian Regional Medical CenterComment on above:Result Comment: eGFR not reported due to non- numeric value for Creatinine. Reported eGFR is based on the CKD-EPI 2020 equation that does not use a race coefficient.Performed By: #### CBCA, CMP, FEPR, 21899-1, TSHR, 2276-4, HA1C, 2283-09, 2131-10 #### [facility] ([id number]) [address] [facility], [address] [place] [address] #### 15937-9 #### [facility] ([id number]) [address] [place] [address] 93811Twabgql [Mass/Vol]144 mg/lBPwna11-17UmuBkhlxpCleveland Clinic Euclid Hospital Comment on above:Performed By: #### CBCA, CMP, FEPR, 84322-7, TSHR, 2276-4, HA1C, 2283-09, 2131-10 #### [facility] ([id number]) [address], [address] [place] [address] #### 54920-4 #### [facility] ([id number]) [address] [place] [address] 95154Pdeonhabo [Moles/Vol]3.9 mmol/LNormal3.5-5.0ProPermian Regional Medical CenterComment on above:Performed By: #### CBCA, CMP, FEPR, 25267-3, TSHR, 2276-4, HA1C, 2283-09, 2131-10 #### [facility] ([id number]) [address] [facility], [address] [place] [address] #### 58403-0 #### [facility] ([id number]) [address] [place] [address] 10402Xkvhcwp [Mass/Vol]5.8 g/dLLow6.0-8.0ProPermian Regional Medical Center Comment on above:Performed By: #### CBCA, CMP, FEPR, 26399-1, TSHR, 2276-4, HA1C, 2283-09, 2131-10 #### [facility] ([id number]) [address] [facility], [address] [place] [address] #### 17957-5 #### [facility] ([id number]) [address] [place] [address] 40430Idxquj [Moles/Vol]133 mmol/VFia497-650MolQzppliPermian Regional Medical CenterComment on above:Performed By: #### CBCA, CMP, FEPR, 61214-6, TSHR, 2276-4, HA1C, 2283-09, 2131-10 #### [facility] ([id number]) [address], [address] [place] [address] #### 55378-2 #### [facility] ([id number]) [address] [place], [place] [address]Lqgv nitrogen [Mass/Vol]10 mg/dLNormal5-27ProPermian Regional Medical CenterComment on above:Performed By: #### CBCA, CMP, FEPR, 18752-7, TSHR, 2276-4, HA1C, 4-8, 2131-10 #### [facility] ([id number]) [address] [place] [address], [address] [place] [address] #### 04057-0 #### [facility] ([id number]) [address] [place] [address] 98944SBGFFBWIFV AND HEMATOCRIT, BLOODon 19-24-9318Harzltcbhc (Bld) [Volume fraction]22.3 %Atl33-05XyoUfxqzlCleveland Clinic Euclid HospitalComment on above: Performed By: #### CBCA, CMP, FEPR, 23449-7, TSHR, 6-4, HA1C, 2283-09, 2131-10 #### [facility] ([id number]) [address] [place] [address], [address] [place] [address] #### 10856-6 #### [facility] ([id number]) [address] [place] [address] 19068Feyyrqabmg (Bld) [Mass/Vol]7.4 g/dLLow11.7-15.5ProMedica [facility] Medical CenterComment on above:Performed By: #### CBCA, CMP, FEPR, 26207-1, TSHR, 2276-4, HA1C, 2283-8, 2131-10 #### [facility] ([id number]) [address] [place] [address], [address] [place] [address] #### 42617-8 #### [facility] ([id number]) [address] [place] [address] 42142Zqdlwsixfc (Bld) [Volume fraction]22.2 %Sku43-36IstGstidzCleveland Clinic Euclid HospitalComment on above:Performed By: #### CBCA, CMP, FEPR, 67208-4, TSHR, 2276-4, HA1C, 2283-09, 2131-10 #### [facility] ([id number]) [address] [place] [address], [address] [place] [address] #### 54052-3 #### [facility] ([id number]) [address] [place] [address] 42144Yvpuvpnsnl (Bld) [Mass/Vol]7.5 g/dLLow11.7-15.5ProMedica [facility] Medical CenterComment on above:Performed By: #### CBCA, CMP, FEPR, 41943-5, TSHR, 2276-4, HA1C, 2283-09, 2131-10 #### [facility] ([id number]) [facility] [facility], [address] [place] [address] #### 45572-5 #### [facility] ([id number]) [address] [place] [address] 71723CMEKLTRDXks 16-93-7134Ahthwtbts [Mass/Vol]1.7 mg/dLLow1.8-2.6 [facility] Medical CenterComment on above:Performed By: #### CBCA, CMP, FEPR, 94075-9, TSHR, 2276-4, HA1C, 2283-09, 2131-10 #### [facility] ([id number]) [address] [place] [address], [address] [place] [address] #### 60258-5 #### [facility] ([id number]) [address] [place] [address] 95910XKWGDNTIJWpa 05-67-9256Utntxjobr [Mass/Vol]2.8 mg/dLNormal 2.4-4.9Pro[facility]ica [facility] Medical CenterComment on above:Performed By: #### CBCA, CMP, FEPR, 03961-9, TSHR, 2276-4, HA1C, 2283-09, 2131-10 #### [facility] ([id number]) [address] [facility], [address] [place] [address] #### 98302-2 #### [facility] ([id number]) [address] [place] [address] 66477MWLE AND SCREENon 17-56-1078FBO_YJHHRUERsbobtPtmWtyjbd [facility]ont HospitalComment on above:Performed By: #### CBCA, CMP, FEPR, 64835-3, TSHR, 2276-4, HA1C, 2283-8, 2131-10 #### [facility] ([id number]) [address] [facility], [address] [place] [address] #### 16335-5 #### [facility] ([id number]) [address] [place] [address] 43420RH_INTEPPositiveNormalCleveland Clinic Euclid HospitalComment on above:Performed By: #### CBCA, CMP, FEPR, 34689-8, TSHR, 2276-4, HA1C, 2283-, 2131-10 #### [facility] ([id number]) [address] [facility], [address] [place] [address] #### 93480-4 #### [facility] ([id number]) [address] [place] [address] 04995OSOPAAQ GLUCOSEon 23-72-3445Cncvxby [Mass/Vol]121 mg/dLHigh 65-99C[facility] Clinic Euclid HospitalComment on above:Performed By: #### CBCA, CMP, FEPR, 56473-2, TSHR, 2276-4, HA1C, 2283-8, 2131-10 #### [facility] ([id number]) [address] [facility], [address] [place] [address] #### 70434-1 #### [facility] ([id number]) [address] [place], [place] [address]Izkiodm [Mass/Vol]221 mg/sJZvli02-29LoeVyazwjCleveland Clinic Euclid Hospital Comment on above:Performed By: #### CBCA, CMP, FEPR, 21600-6, TSHR, 2276-4, HA1C, 2284-8, 2131-10 #### [facility] ([id number]) [address] [facility], [address] [place] [address] #### 07557-1 #### [facility] ([id number]) [address] [place] [address] 44676Zbupqbw [Mass/Vol]158 mg/wYGlxg43-22DexVzmjggCleveland Clinic Euclid Hospital Comment on above:Performed By: #### CBCA, CMP, FEPR, 98242-2, TSHR, 2276-4, HA1C, 2283-8, 2131-10 #### [facility] ([id number]) [address] [place] [address], [address] [place] [address] #### 62474-7 #### [facility] ([id number]) [address] [place] [address] [id number] WITH AUTO DIFFERENTIALon 01-18-4274NWRUQNYVV ABSOLUTE COUNT (10*3/UL) BY AUTOMATED COUNT0.0 10*3/uLNormal0.0-0.2PChildren[facility] Comment on above:Performed By: #### CBCA, CMP, FEPR, 01785-9, TSHR, 2276-4, HA1C, 2283-8, 2131-10 #### [facility] ([id number]) [address] [place] [address], [address] [place] [address] #### 26118-5 #### [facility] ([id number]) [address] [place] [address] 20473GTCLSIIXP RELATIVE PERCENT BY AUTOMATED COUNT0.3 %Normal [facility] HospitalComment on above:Performed By: #### CBCA, CMP, FEPR, 83974-4, TSHR, 2276-4, HA1C, 2284-8, 2131-10 #### [facility] ([id number]) [address], [address] [place] [address] #### 77605-2 #### [facility] ([id number]) [address] [place] [address] [id number] DIFFERENTIAL TYPEAUTOMATED DIFFERENTIALNormal [facility] HospitalComment on above:Performed By: #### CBCA, CMP, FEPR, 91096-8, TSHR, 2276-4, HA1C, 4-8, 2131-10 #### [facility] ([id number]) [address], [address] [place] [address] #### 63363-9 #### [facility] ([id number]) [address] [place] [address] [id number] (Bld) [#/Vol]0.2 10*3/uLNormal0.0-0.4Pro[facility] Medical CenterComment on above:Performed By: #### CBCA, CMP, FEPR, 34567-0, TSHR, 2276-4, HA1C, 4-8, 2131-10 #### [facility] ([id number]) [address], [address] [place] [address] #### 35571-7 #### [facility] ([id number]) [address] [place] [address] [id number] RELATIVE PERCENT BY AUTOMATED COUNT2.8 %Normal [facility] HospitalComment on above:Performed By: #### CBCA, CMP, FEPR, 53487-6, TSHR, 2276-4, HA1C, 2284-8, 2131-10 #### [facility] ([id number]) [address], [address] [place] [address] #### 51380-9 #### [facility] ([id number]) [address] [place] [address] 70372Wvyceobfwnw distribution width (RBC) [Ratio]17.2 %High11.5-15 [facility] CenterComment on above:Performed By: #### CBCA, CMP, FEPR, 83870-6, TSHR, 2276-4, HA1C, 4-8, 2131-10 #### [facility] ([id number]) [address] [facility], [address] [place] [address] #### 02907-1 #### [facility] ([id number]) [address] [place] [address] 90837Lbxzfbmohv (Bld) [Volume fraction]21.7 %Khl55-78HuoTfnfuw [facility] Medical CenterComment on above:Performed By: #### CBCA, CMP, FEPR, 81757-5, TSHR, 2276-4, HA1C, 2283-, 2131-10 #### [facility] ([id number]) [address] [facility], [address] [place] [address] #### 12851-3 #### [facility] ([id number]) [address] [place] [address] 50893Oucnegiyfa (Bld) [Mass/Vol]7.4 g/dLLow11.7-15.5[facility] Medical CenterComment on above:Performed By: #### CBCA, CMP, FEPR, 63565-0, TSHR, 2276-4, HA1C, 2283-8, 2131-10 #### [facility] ([id number]) [address] [facility], [address] [place] [address] #### 10948-8 #### [facility] ([id number]) [address] [place] [address] [id number] ABSOLUTE COUNT (10*3/UL) BY AUTOMATED COUNT1.3 10*3/uLNormal1.0-3.5[facility] Medical CenterComment on above:Performed By: #### CBCA, CMP, FEPR, 69494-4, TSHR, 2276-4, HA1C, 4-8, 2131-10 #### [facility] ([id number]) [address], [address] [place] [address] #### 10721-9 #### [facility] ([id number]) [address] [place], [place] [address]KTPQIDYFRSL RELATIVE PERCENT BY AUTOMATED COUNT19.8 %Normal [facility] Medical CenterComment on above:Performed By: #### CBCA, CMP, FEPR, 90195-4, TSHR, 2276-4, HA1C, 2283-8, 2131-10 #### [facility] ([id number]) [address], [address] [place] [address] #### 49767-5 #### [facility] ([id number]) [address] [place] [address] 66520RDF (RBC) [Entitic mass]29.8 lkZabehk38-60DdtTdnjxcPermian Regional Medical CenterComment on above:Performed By: #### CBCA, CMP, FEPR, 99976-7, TSHR, 2276-4, HA1C, 2283-8, 2131-10 #### [facility] ([id number]) [address], [address] [place] [address] #### 80824-1 #### [facility] [facility] ([id number]) [address] [place] [address] 03493KTFQ (RBC) [Mass/Vol]34.2 g/gKQhmczy17-96TmqTnilmoPermian Regional Medical CenterComment on above:Performed By: #### CBCA, CMP, FEPR, 58160-8, TSHR, 2276-4, HA1C, 2284-, 2131-10 #### [facility] ([id number]) [address], [address] [place] [address] #### 25492-7 #### [facility] ([id number]) [address] [place] [address] 90300UMJ (RBC) [Entitic vol]87 aJOglwwo79-364RnvXpqtle [facility] HospitalComment on above:Performed By: #### CBCA, CMP, FEPR, 86694-6, TSHR, 2276-4, HA1C, 2283-, 2131-10 #### [facility] ([id number]) [address], [address] [place] [address] #### 02882-1 #### [facility] ([id number]) [address] [place] [address] 88625PZNDNMVUO ABSOLUTE COUNT (10*3/UL) BY AUTOMATED COUNT0.9 10*3/uLNormal0.0-0.9[facility] HospitalComment on above:Performed By: #### CBCA, CMP, FEPR, 24277-5, TSHR, 2276-4, HA1C, 2283-, 2131-10 #### [facility] ([id number]) [address], [address] [place] [address] #### 72055-3 #### [facility] ([id number]) [address] [place] [address] 01587FETCNTRVC RELATIVE PERCENT BY AUTOMATED COUNT13.2 %Normal ProMPromise Hospital of East Los AngelesComment on above:Performed By: #### CBCA, CMP, FEPR, 86573-3, TSHR, 2276-4, HA1C, 2283-, 2131-10 #### [facility] ([id number]) [address], [address] [place] [address] #### 41546-5 #### [facility] ([id number]) [address] [place] [address] 12472AHLMQEQFWRZ ABSOLUTE COUNT BY AUTOMATED COUNT4.1 10*3/uLNormal 1.5-6.6[facility]ucl[facility] HospitalComment on above:Performed By: #### CBCA, CMP, FEPR, 35774-3, TSHR, 2276-4, HA1C, 2284-8, 2131-10 #### [facility] ([id number]) [address], [address] [place] [address] #### 73799-0 #### [facility] ([id number]) [address] [place] [address] 97259AOACJJETZZR RELATIVE PERCENT BY AUTOMATED COUNT63.9 %Normal ProMPromise Hospital of East Los AngelesComment on above:Performed By: #### CBCA, CMP, FEPR, 54596-3, TSHR, 2276-4, HA1C, 4-8, 2131-10 #### [facility] ([id number]) [address] [facility], [address] [place] [address] #### 93900-2 #### [facility] ([id number]) [address] [place] [address] 31681Elkdvdek mean volume (Bld) [Entitic vol]10.4 fLNormal7-12 [facility] HospitalComment on above:Performed By: #### CBCA, CMP, FEPR, 94563-0, TSHR, 2276-4, HA1C, 4-8, 2131-10 #### [facility] ([id number]) [address], [address] [place] [address] #### 05310-4 #### [facility] ([id number]) [address] [place] [address] 81265Qcgentuds (Bld) [#/Vol]107 10*3/qIFgi303-785GjqMrrbtkPermian Regional Medical CenterComment on above:Performed By: #### CBCA, CMP, FEPR, 21287-5, TSHR, 2276-4, HA1C, 2283-8, 2131-10 #### [facility] ([id number]) [address], [address] [place] [address] #### 52986-3 #### [facility] ([id number]) [address] [place] [address] 96839FXV COUNT2.50 X10E12/LLow3.8-5.2PChildren's Hospital of [facility] Comment on above:Performed By: #### CBCA, CMP, FEPR, 56943-9, TSHR, 2276-4, HA1C, 2283-09, 2131-10 #### [facility] ([id number]) [address] [facility], [address] [place] [address] #### 55950-0 #### [facility] ([id number]) [address] [place] [address] 73524QOC (Bld) [#/Vol]6.5 10*3/uLNormal4-11[facility] HospitalComment on above:Performed By: #### CBCA, CMP, FEPR, 93455-5, TSHR, 2276-4, HA1C, 2283-09, 2131-10 #### [facility] ([id number]) [address], [address] [place] [address] #### 49071-6 #### [facility] ([id number]) [address] [place] [address] 38205UWLRWHBIDIEQH METABOLIC PANELon 46-85-5048Ychcmda [Mass/Vol]2.1 g/dLLow3.2-5.3PChildren's Hospital of ColumbusComment on above:Performed By: #### CBCA, CMP, FEPR, 13672-7, TSHR, 2276-4, HA1C, 2283-09, 2131-10 #### [facility] ([id number]) [address], [address] [place] [address] #### 72946-2 #### [facility] ([id number]) [address] [place] [address] 08755NBR [Catalytic activity/Vol]134 U/MUuqq50-002PeoTddntuPermian Regional Medical CenterComment on above:Performed By: #### CBCA, CMP, FEPR, 80006-4, TSHR, 2276-4, HA1C, 2283-09, 2131-10 #### [facility] ([id number]) [address], [address] [place] [address] #### 45958-2 #### [facility] ([id number]) [address] [place] [address] 42582BAQ [Catalytic activity/Vol]187 U/LHigh<=31Pro[facility] Regional Medical CenterComment on above:Performed By: #### CBCA, CMP, FEPR, 60763-0, TSHR, 2276-4, HA1C, 2283-09, 2131-10 #### [facility] ([id number]) [address], [address] [place] [address] #### 94826-3 #### [facility] ([id number]) [address] [place] [address] 54230Homlc gap [Moles/Vol]5 mmol/LNormal5-15ProPermian Regional Medical CenterComment on above:Performed By: #### CBCA, CMP, FEPR, 49916-6, TSHR, 2276-4, HA1C, 2283-09, 2131-10 #### [facility] ([id number]) [address], [address] [place] [address] #### 53641-6 #### [facility] ([id number]) [address] [place], [place] [address]XBF [Catalytic activity/Vol]113 U/LHigh<=41ProPermian Regional Medical CenterComment on above:Performed By: #### CBCA, CMP, FEPR, 64534-4, TSHR, 2276-4, HA1C, 2283-09, 2131-10 #### [facility] ([id number]) [address] [facility], [address] [place] [address] #### 31198-2 #### [facility] ([id number]) [address] [place] [address] 45484Digwjyzgj [Mass/Vol]0.9 mg/dLNormal0.3-1.2PChildren's Hospital of ColumbusComment on above:Performed By: #### CBCA, CMP, FEPR, 56948-9, TSHR, 6-4, HA1C, 2283-09, 2131-10 #### [facility] ([id number]) [address] [facility], [address] [place] [address] #### 25201-0 #### [facility] ([id number]) [address] [place] [address] 09037Wwcnooc [Mass/Vol]7.5 mg/dLLow8.5-10.5PChildren's Hospital of ColumbusComment on above:Performed By: #### CBCA, CMP, FEPR, 11149-2, TSHR, 2276-4, HA1C, 2283-09, 2131-10 #### [facility] ([id number]) [address] [facility], [address] [place] [address] #### 03793-7 #### [facility] ([id number]) [address] [place] [address] 61001Nezplvuw [Moles/Vol]107 mmol/FKglyld63-194ZqkOzfuqbPermian Regional Medical CenterComment on above:Performed By: #### CBCA, CMP, FEPR, 91383-2, TSHR, 2276-4, HA1C, 2283-, 2131-10 #### [facility] ([id number]) [address], [address] [place] [address] #### 66371-6 #### [facility] ([id number]) [address] [place] [address] 95780DD4 [Moles/Vol]24 mmol/GAogseg61-07EqkApcovnChildren's Hospital of Columbus Comment on above:Performed By: #### CBCA, CMP, FEPR, 53358-5, TSHR, 2276-4, HA1C, 2283-8, 2131-10 #### [facility] ([id number]) [address] [facility], [address] [place] [address] #### 54272-4 #### [facility] ([id number]) [address] [place] [address] 98737Kbxwbjwyhd [Mass/Vol]0.60 mg/dLNormal0.40-1.00[facility]uclid HospitalComment on above:Result Comment: METHOD TRACEABLE TO IDMS STANDARD Performed By: #### CBCA, CMP, FEPR, 66177-7, TSHR, 2276-4, HA1C, 2283-, 2131-10 #### [facility] ([id number]) [address] [facility], [address] [place] [address] #### 82369-7 #### [facility] ([id number]) [address] [place] [address] 06532MAXL (CKD-EPI) NON-RACE DEPENDENT>^90Normal>=60C[facility]ucl[facility] HospitalComment on above:Result Comment: eGFR not reported due to non- numeric value for Creatinine. Reported eGFR is based on the CKD-EPI 2020 equation that does not use a race coefficient.Performed By: #### CBCA, CMP, FEPR, 97561-7, TSHR, 2276-4, HA1C, 228-8, 2131-10 #### [facility] ([id number]) [address], [address] [place] [address] #### 50009-5 #### [facility] ([id number]) [address] [place] [address] 19994Jurntgo [Mass/Vol]158 mg/aMOxlz05-90FzyPbvoxvCleveland Clinic Euclid Hospital Comment on above:Performed By: #### CBCA, CMP, FEPR, 13298-8, TSHR, 2276-4, HA1C, 2283-09, 2131-10 #### [facility] ([id number]) [address] [facility], [address] [place] [address] #### 76350-8 #### [facility] ([id number]) [address] [place] [address] 47163Nmynwyfwe [Moles/Vol]3.6 mmol/LNormal3.5-5.0ProPermian Regional Medical CenterComment on above:Performed By: #### CBCA, CMP, FEPR, 89551-2, TSHR, 2276-4, HA1C, 2283-09, 2131-10 #### [facility] ([id number]) [address] [facility], [address] [place] [address] #### 70137-7 #### [facility] ([id number]) [address] [place] [address] 20581Lrevjwy [Mass/Vol]5.3 g/dLLow6.0-8.0[facility] Comment on above:Performed By: #### CBCA, CMP, FEPR, 55655-8, TSHR, 2276-4, HA1C, 2283-09, 2131-10 #### [facility] ([id number]) [address], [address] [place] [address] #### 18482-7 #### [facility] ([id number]) [address] [place], [place] [address]Vzlwrf [Moles/Vol]136 mmol/QKeaivh925-457AwjItfuqq [facility] HospitalComment on above:Performed By: #### CBCA, CMP, FEPR, 07547-6, TSHR, 2276-4, HA1C, 2283-09, 2131-10 #### [facility] ([id number]) [address] [facility], [address] [place] [address] #### 30335-3 #### [facility] ([id number]) [address] [place] [address] 94032Wrfu nitrogen [Mass/Vol]10 mg/dLNormal5-27ProPermian Regional Medical CenterComment on above:Performed By: #### CBCA, CMP, FEPR, 34787-3, TSHR, 6-4, HA1C, 2283-09, 2131-10 #### [facility] ([id number]) [address] [facility], [address] [place] [address] #### 19735-5 #### [facility] ([id number]) [address] [place] [address] 60259ZOEAXKLLDA AND HEMATOCRIT, BLOODon 20-27-6066Ygumejexxi (Bld) [Volume fraction]25.7 %Kxc51-48XacBnehewPermian Regional Medical CenterComment on above: Performed By: #### CBCA, CMP, FEPR, 89500-5, TSHR, 2276-4, HA1C, 2283-09, 2131-10 #### [facility] ([id number]) [address] [facility], [address] [place] [address] #### 64621-0 #### [facility] ([id number]) [address] [place] [address] 35133Gdqpupotix (Bld) [Mass/Vol]8.6 g/dLLow11.7-15.5PChildren's Hospital of ColumbusComment on above:Performed By: #### CBCA, CMP, FEPR, 30967-4, TSHR, 2276-4, HA1C, 2283-8, 2131-10 #### [facility] ([id number]) [address] [facility], [address] [place] [address] #### 25795-0 #### [facility] ([id number]) [address] [place] [address] 85257XRGSTMH CALCIUMon 57-56-0956FXODFPV CALCIUM - ICAN4.7 mg/dL Normal4.5-5.3ProMed[facility] Regional Medical CenterComment on above:Performed By: #### CBCA, CMP, FEPR, 68880-2, TSHR, 2276-4, HA1C, 2283-09, 2131-10 #### [facility] ([id number]) [address] [facility], [address] [place] [address] #### 45327-7 #### [facility] ([id number]) [address] [place] [address] 92185HWVYAUVTCue 67-36-7469Vquspbros [Mass/Vol]2.1 mg/dLNormal 1.8-2.6ProPermian Regional Medical CenterComment on above:Performed By: #### CBCA, CMP, FEPR, 67083-1, TSHR, 2276-4, HA1C, 2283-09, 2131-10 #### [facility] ([id number]) [address], [address] [place] [address] #### 53378-9 #### [facility] ([id number]) [address] [place] [address] 36840Yquqivqnc [Mass/Vol]1.8 mg/dLNormal1.8-2.6ProPermian Regional Medical CenterComment on above:Performed By: #### CBCA, CMP, FEPR, 86081-7, TSHR, 2276-4, HA1C, 2283-, 2131-10 #### [facility] ([id number]) [address], [address] [place] [address] #### 87748-0 #### [facility] ([id number]) [address] [place] [address] 89044VVNJYHWCAFnt 36-87-1468Khgzpzilr [Mass/Vol]2.3 mg/dLLow2.4-4.9 [facility] Medical CenterComment on above:Performed By: #### CBCA, CMP, FEPR, 51839-2, TSHR, 2276-4, HA1C, 2283-09, 2131-10 #### [facility] ([id number]) [address], [address] [place] [address] #### 00232-1 #### [facility] ([id number]) [address] [place] [address] 29708XNLIMPKRCqn 53-90-8057Aufrlvqou [Moles/Vol]3.8 mmol/LNormal 3.5-5.0ProPermian Regional Medical CenterComment on above:Performed By: #### CBCA, CMP, FEPR, 35656-7, TSHR, 2276-4, HA1C, 2283-09, 2131-10 #### [facility] ([id number]) [address], [address] [place] [address] #### 29624-3 #### [facility] ([id number]) [address] [place] [address] 45465XESOBLVRUKBZSjd 22-46-6769Klmqhpuzchpk [Mass/Vol]142 mg/dL Dwyrzh00-245CqdHkuyevPermian Regional Medical CenterComment on above:Performed By: #### CBCA, CMP, FEPR, 36491-5, TSHR, 2276-4, HA1C, 2283-09, 2131-10 #### [facility] ([id number]) [address], [address] [place] [address] #### 18463-6 #### [facility] ([id number]) [address] [place] [address] 14617SYOYQVW GLUCOSEon 91-21-7669Fblspey [Mass/Vol]221 mg/dLHigh 65-99[facility] HospitalComment on above:Performed By: #### CBCA, CMP, FEPR, 41578-0, TSHR, 2276-4, HA1C, 2283-8, 2131-10 #### [facility] ([id number]) [address] [facility], [address] [place] [address] #### 34094-2 #### [facility] ([id number]) [address] [place] [address] 84696Uqzvrbh [Mass/Vol]194 mg/rLIsqr43-11VhsCakzecCleveland Clinic Euclid Hospital Comment on above:Performed By: #### CBCA, CMP, FEPR, 41629-4, TSHR, 2276-4, HA1C, 2283-, 2131-10 #### [facility] ([id number]) [address] [facility], [address] [place] [address] #### 45422-7 #### [facility] ([id number]) [address] [place] [address] 97667BXB WITH AUTO DIFFERENTIALon 36-02-4962CTBNAZQRC ABSOLUTE COUNT (10*3/UL) BY AUTOMATED COUNT0.0 10*3/uLNormal0.0-0.2PChildren's Hospital of [facility] Comment on above:Performed By: #### CBCA, CMP, FEPR, 72417-3, TSHR, 2276-4, HA1C, 2284-8, 2131-10 #### [facility] ([id number]) [address] [facility], [address] [place] [address] #### 77512-3 #### [facility] ([id number]) [address] [place] [address] 02719CPCCRJCVQ RELATIVE PERCENT BY AUTOMATED COUNT0.2 %Normal [facility] HospitalComment on above:Performed By: #### CBCA, CMP, FEPR, 52045-9, TSHR, 2276-4, HA1C, 2283-8, 2131-10 #### [facility] ([id number]) [address], [address] [place] [address] #### 79743-1 #### [facility] ([id number]) [address] [place] [address] 25641KCOVSEMJNMJ DIFFERENTIAL TYPEAUTOMATED DIFFERENTIALNormal [facility] HospitalComment on above:Performed By: #### CBCA, CMP, FEPR, 99235-6, TSHR, 2276-4, HA1C, 2283-, 2131-10 #### [facility] ([id number]) [address], [address] [place] [address] #### 11659-2 #### [facility] ([id number]) [address] [place] [address] 60980Mpcasewjihp (Bld) [#/Vol]0.1 10*3/uLNormal0.0-0.4ProMed[facility] Regional Medical CenterComment on above:Performed By: #### CBCA, CMP, FEPR, 74692-2, TSHR, 2276-4, HA1C, 2283-, 2131-10 #### [facility] ([id number]) [address], [address] [place] [address] #### 26349-3 #### [facility] ([id number]) [address] [place] [address] 63866MKYNCOTFDSY RELATIVE PERCENT BY AUTOMATED COUNT1.7 %Normal [facility] HospitalComment on above:Performed By: #### CBCA, CMP, FEPR, 00582-3, TSHR, 2276-4, HA1C, 2283-09, 2131-10 #### [facility] ([id number]) [address], [address] [place] [address] #### 17893-3 #### [facility] ([id number]) [address] [place] [address] 05304Wndaxxgsjde distribution width (RBC) [Ratio]16.8 %High11.5-15 [facility] Regional Medical CenterComment on above:Performed By: #### CBCA, CMP, FEPR, 47563-2, TSHR, 2276-4, HA1C, 2283-, 2131-10 #### [facility] ([id number]) [address], [address] [place] [address] #### 17700-1 #### [facility] ([id number]) [address] [place] [address] 20968Slgpmknsvg (Bld) [Volume fraction]23.9 %Mji44-40HroLivaza Downey Regional Medical CenterComment on above:Performed By: #### CBCA, CMP, FEPR, 44894-9, TSHR, 2276-4, HA1C, 2283-09, 2131-10 #### [facility] ([id number]) [address], [address] [place] [address] #### 70284-4 #### [facility] ([id number]) [address] [place] [address] 35820Hralyubwvj (Bld) [Mass/Vol]8.4 g/dLLow11.7-15.5[facility] Medical CenterComment on above:Performed By: #### CBCA, CMP, FEPR, 16237-8, TSHR, 2276-4, HA1C, 2283-, 2131-10 #### [facility] ([id number]) [address], [address] [place] [address] #### 97276-4 #### [facility] ([id number]) [address] [place] [address] 25506NRFZMHATXIT ABSOLUTE COUNT (10*3/UL) BY AUTOMATED COUNT1.6 10*3/uLNormal1.0-3.5[facility] Medical CenterComment on above:Performed By: #### CBCA, CMP, FEPR, 37660-4, TSHR, 2276-4, HA1C, 2284-8, 2131-10 #### [facility] ([id number]) [address], [address] [place] [address] #### 41794-2 #### [facility] ([id number]) [address] [place] [address] 21111NJYXLGVKCKB RELATIVE PERCENT BY AUTOMATED COUNT18.8 %Normal [facility] Medical CenterComment on above:Performed By: #### CBCA, CMP, FEPR, 28361-8, TSHR, 2276-4, HA1C, 4-8, 2131-10 #### [facility] ([id number]) [address] [facility], [address] [place] [address] #### 19253-3 #### [facility] ([id number]) [address] [place] [address] 18565ETQ (RBC) [Entitic mass]30.4 ylLvxolq00-32WbiSskmjoPermian Regional Medical CenterComment on above:Performed By: #### CBCA, CMP, FEPR, 31511-5, TSHR, 2276-4, HA1C, 2284-8, 2131-10 #### [facility] ([id number]) [address], [address] [place] [address] #### 84630-1 #### [facility] ([id number]) [address] [place] [address] 53067MWVA (RBC) [Mass/Vol]35.0 g/eFEfsioq47-74MmjKzrrge Mcnairy HospitalComment on above:Performed By: #### CBCA, CMP, FEPR, 78667-1, TSHR, 2276-4, HA1C, 2283-09, 2131-10 #### [facility] ([id number]) [address], [address] [place] [address] #### 85924-6 #### [facility] ([id number]) [address] [place] [address] 20556EUO (RBC) [Entitic vol]87 kJLcjrkd89-681RgtZxrbdtCleveland Clinic Euclid HospitalComment on above:Performed By: #### CBCA, CMP, FEPR, 19018-4, TSHR, 2276-4, HA1C, 2283-09, 2131-10 #### [facility] ([id number]) [address], [address] [place] [address] #### 24967-5 #### [facility] ([id number]) [address] [place] [address] [id number] ABSOLUTE COUNT (10*3/UL) BY AUTOMATED COUNT1.2 10*3/uLHigh0.0-0.9[facility] HospitalComchelsea hospital on above:Performed By: #### CBCA, CMP, FEPR, 48861-3, TSHR, 2276-4, HA1C, 2283-09, 2131-10 #### [facility] ([id number]) [address], [address] [place] [address] #### 96999-9 #### [facility] ([id number]) [address] [place] [address] 70997TRCWUKHSJ RELATIVE PERCENT BY AUTOMATED COUNT13.7 %Normal [facility] HospitalComment on above:Performed By: #### CBCA, CMP, FEPR, 03152-2, TSHR, 2276-4, HA1C, 2283-09, 2131-10 #### [facility] ([id number]) [address], [address] [place] [address] #### 75050-0 #### [facility] ([id number]) [address] [place] [address] [id number] ABSOLUTE COUNT BY AUTOMATED COUNT5.5 10*3/uLNormal 1.5-6.6ProWadsworth-Rittman Hospitalca [facility] Regional Medical CenterComment on above:Performed By: #### CBCA, CMP, FEPR, 85519-3, TSHR, 2276-4, HA1C, 4-8, 2131-10 #### [facility] ([id number]) [address] [facility], [address] [place] [address] #### 17877-0 #### [facility] ([id number]) [address] [place] [address] 12135LSHPSBLEKMJ RELATIVE PERCENT BY AUTOMATED COUNT65.6 %Normal [facility] HospitalComment on above:Performed By: #### CBCA, CMP, FEPR, 20001-1, TSHR, 2276-4, HA1C, 2283-8, 2131-10 #### [facility] ([id number]) [address], [address] [place] [address] #### 27304-1 #### [facility] ([id number]) [address] [place] [address] 72510Tniexmua mean volume (Bld) [Entitic vol]9.7 fLNormal7-12 [facility] HospitalComment on above:Performed By: #### CBCA, CMP, FEPR, 18214-9, TSHR, 2276-4, HA1C, 2283-8, 2131-10 #### [facility] ([id number]) [address], [address] [place] [address] #### 10658-6 #### [facility] ([id number]) [address] [place] [address] [id number] (Bld) [#/Vol]115 10*3/iUKgf381-384VaoJdbboyPermian Regional Medical CenterComment on above:Performed By: #### CBCA, CMP, FEPR, 89061-9, TSHR, 2276-4, HA1C, 2284-8, 2131- #### [facility] ([id number]) [address], [address] [place] [address] #### 08389-1 #### [facility] ([id number]) [address] [place] [address] 10676IRC COUNT2.75 X10E12/LLow3.8-5.2PChildren's Hospital of [facility] Comment on above:Performed By: #### CBCA, CMP, FEPR, 81413-0, TSHR, 2276-4, HA1C, 2283-8, 2131-10 #### [facility] ([id number]) [address], [address] [place] [address] #### 59534-2 #### [facility] ([id number]) [address] [place] [address] 77833RVD (Bld) [#/Vol]8.4 10*3/uLNormal4-11ProPermian Regional Medical CenterComment on above:Performed By: #### CBCA, CMP, FEPR, 49332-3, TSHR, 2276-4, HA1C, 2283-8, 2131-10 #### [facility] ([id number]) [address], [address] [place] [address] #### 02803-0 #### [facility] ([id number]) [address] [place] [address] 18999CPGPRDININVYE METABOLIC PANELon 45-35-7696Oeeyagi [Mass/Vol]1.7 g/dLLow3.2-5.3PChildren's Hospital of ColumbusComment on above:Performed By: #### CBCA, CMP, FEPR, 79705-8, TSHR, 2276-4, HA1C, 2283-8, 2131-10 #### [facility] ([id number]) [address], [address] [place] [address] #### 51372-3 #### [facility] ([id number]) [address] [place] [address] [id number] [Catalytic activity/Vol]153 U/CIdru73-546PikXkbdcuPermian Regional Medical CenterComment on above:Performed By: #### CBCA, CMP, FEPR, 27935-1, TSHR, 2276-4, HA1C, 2283-, 2131-10 #### [facility] ([id number]) [address], [address] [place] [address] #### 95616-1 #### [facility] ([id number]) [address] [place] [address] 83322OTY [Catalytic activity/Vol]225 U/LHigh<=31Pro[facility] Medical CenterComment on above:Performed By: #### CBCA, CMP, FEPR, 86576-2, TSHR, 2276-4, HA1C, 2283-09, 2131-10 #### [facility] ([id number]) [address], [address] [place] [address] #### 40801-0 #### [facility] ([id number]) [address] [place] [address] 36809Fdqsr gap [Moles/Vol]5 mmol/LNormal5-15ProPermian Regional Medical CenterComment on above:Performed By: #### CBCA, CMP, FEPR, 27604-4, TSHR, 2276-4, HA1C, 2283-8, 2131-10 #### [facility] ([id number]) [address], [address] [place] [address] #### 89562-7 #### [facility] ([id number]) [address] [place] [address] 07106IXY [Catalytic activity/Vol]94 U/LHigh<=41ProMedica [facility] Regional Medical CenterComment on above:Performed By: #### CBCA, CMP, FEPR, 13775-7, TSHR, 2276-4, HA1C, 2283-8, 2131-10 #### [facility] ([id number]) [address], [address] [place] [address] #### 98174-3 #### [facility] ([id number]) [address] [place] [address] 85155Qgqjdyvjb [Mass/Vol]0.8 mg/dLNormal0.3-1.2ProMedJohn F. Kennedy Memorial HospitalComment on above:Performed By: #### CBCA, CMP, FEPR, 89618-8, TSHR, 2276-4, HA1C, 2283-, 2131-10 #### [facility] ([id number]) [address], [address] [place] [address] #### 06507-9 #### [facility] ([id number]) [address] [place] [address] 68410Ttmjifj [Mass/Vol]7.3 mg/dLLow8.5-10.5PChildren's Hospital of ColumbusComment on above:Performed By: #### CBCA, CMP, FEPR, 40900-6, TSHR, 2276-4, HA1C, 2283-8, 2131-10 #### [facility] ([id number]) [address], [address] [place] [address] #### 05935-7 #### [facility] ([id number]) [address] [place] [address] 51222Dlfnxvbb [Moles/Vol]107 mmol/VLdlitw24-861MvgKtltle Mcnairy HospitalComment on above:Performed By: #### CBCA, CMP, FEPR, 06480-5, TSHR, 2276-4, HA1C, 2283-, 2131-10 #### [facility] ([id number]) [address], [address] [place] [address] #### 43103-6 #### [facility] ([id number]) [address] [place] [address] 51619ZJ5 [Moles/Vol]22 mmol/GGyjxvd43-05RyuGzojtyChildren's Hospital of Columbus Comment on above:Performed By: #### CBCA, CMP, FEPR, 38120-0, TSHR, 2276-4, HA1C, 2283-, 2131-10 #### [facility] ([id number]) [address], [address] [place] [address] #### 88904-3 #### [facility] ([id number]) [address] [place] [address] 82647Wxhogavlxr [Mass/Vol]0.58 mg/dLNormal0.40-1.00C[facility] Euclid HospitalComment on above:Result Comment: METHOD TRACEABLE TO IDMS STANDARD Performed By: #### CBCA, CMP, FEPR, 72770-9, TSHR, 2276-4, HA1C, 2283-, 2131-10 #### [facility] ([id number]) [address] [facility], [address] [place] [address] #### 64435-2 #### [facility] ([id number]) [address] [place] [address] 20496WINR (CKD-EPI) NON-RACE DEPENDENT>^90Normal>=60ProPermian Regional Medical CenterComment on above:Result Comment: eGFR not reported due to non- numeric value for Creatinine. Reported eGFR is based on the CKD-EPI 2020 equation that does not use a race coefficient.Performed By: #### CBCA, CMP, FEPR, 38326-1, TSHR, 2276-4, HA1C, 2283-8, 2131-10 #### [facility] ([id number]) [address], [address] [place] [address] #### 76577-0 #### [facility] ([id number]) [address] [place] [address] 82713Brvukrc [Mass/Vol]166 mg/kUKcau73-99OdjKtrdwgPermian Regional Medical Center Comment on above:Performed By: #### CBCA, CMP, FEPR, 17518-9, TSHR, 2276-4, HA1C, 2283-09, 2131-10 #### [facility] ([id number]) [address], [address] [place] [address] #### 49023-3 #### [facility] ([id number]) [address] [place] [address] 46392Ndxyfocfe [Moles/Vol]3.5 mmol/LNormal3.5-5.0ProPermian Regional Medical CenterComment on above:Performed By: #### CBCA, CMP, FEPR, 10936-1, TSHR, 2276-4, HA1C, 2283-09, 2131-10 #### [facility] ([id number]) [address], [address] [place] [address] #### 95932-8 #### [facility] ([id number]) [address] [place] [address] 70431Miehaho [Mass/Vol]5.0 g/dLLow6.0-8.0[facility] Comment on above:Performed By: #### CBCA, CMP, FEPR, 53964-6, TSHR, 2276-4, HA1C, 2283-8, 2131-10 #### [facility] ([id number]) [address], [address] [place] [address] #### 87337-8 #### [facility] ([id number]) [address] [place] [address] 16394Wtvaqc [Moles/Vol]134 mmol/KKpmewm543-099CmwHdqzbs Fremont HospitalComment on above:Performed By: #### CBCA, CMP, FEPR, 92464-2, TSHR, 2276-4, HA1C, 2283-8, 2131-10 #### [facility] ([id number]) [address], [address] [place] [address] #### 27857-9 #### [facility] ([id number]) [address] [place] [address] 12895Ldaf nitrogen [Mass/Vol]9 mg/dLNormal5-27ProPermian Regional Medical CenterComment on above:Performed By: #### CBCA, CMP, FEPR, 35398-8, TSHR, 2276-4, HA1C, 2283-09, 2131-10 #### [facility] ([id number]) [address], [address] [place] [address] #### 42550-8 #### [facility] ([id number]) [address] [place] [address] 79840NNZRGBDTZZ AND HEMATOCRIT, BLOODon 60-93-8091Drvhwrfwne (Bld) [Volume fraction]22.3 %Bpl27-13KirEjsarqPermian Regional Medical CenterComment on above: Performed By: #### CBCA, CMP, FEPR, 37567-5, TSHR, 2276-4, HA1C, 2283-09, 2131-10 #### [facility] ([id number]) [address], [address] [place] [address] #### 02282-7 #### [facility] ([id number]) [address] [place] [address] 80313Dzhziihfoa (Bld) [Mass/Vol]7.6 g/dLLow11.7-15.5PChildren's Hospital of ColumbusComment on above:Performed By: #### CBCA, CMP, FEPR, 37002-9, TSHR, 2276-4, HA1C, 2283-8, 2131-10 #### [facility] ([id number]) [address], [address] [place] [address] #### 36540-1 #### [facility] ([id number]) [address] [place] [address] 82892Gptsmzvshu (Bld) [Volume fraction]22.3 %Ynf34-12SwvFyzmbxPermian Regional Medical CenterComment on above:Performed By: #### CBCA, CMP, FEPR, 04820-0, TSHR, 2276-4, HA1C, 2283-09, 2131-10 #### [facility] ([id number]) [address], [address] [place] [address] #### 74939-1 #### [facility] ([id number]) [address] [place] [address] 44989Qdqhrhqwxb (Bld) [Mass/Vol]7.6 g/dLLow11.7-15.5PChildren's Hospital of ColumbusComment on above:Performed By: #### CBCA, CMP, FEPR, 64775-6, TSHR, 2276-4, HA1C, 2283-09, 2131-10 #### [facility] ([id number]) [address], [address] [place] [address] #### 17363-4 #### [facility] ([id number]) [address] [place] [address] 93778GIWJCUcl 53-84-4463Rtqkmb [Catalytic activity/Vol]64 U/LHigh 17-40ProPermian Regional Medical CenterComment on above:Performed By: #### CBCA, CMP, FEPR, 72763-5, TSHR, 2276-4, HA1C, 2283-8, 2131-10 #### [facility] ([id number]) [address] [facility], [address] [place] [address] #### 95971-0 #### [facility] ([id number]) [address] [place] [address] 19553RDCLVHZVQlr 49-95-6564Xwfqucvna [Mass/Vol]2.1 mg/dLNormal 1.8-2.6ProPermian Regional Medical CenterComment on above:Performed By: #### CBCA, CMP, FEPR, 32112-3, TSHR, 2276-4, HA1C, 2283-8, 2131-10 #### [facility] ([id number]) [address] [facility], [address] [place] [address] #### 00649-1 #### [facility] ([id number]) [address] [place] [address] 26718Hfutekhqu [Mass/Vol]1.7 mg/dLLow1.8-2.6ProPermian Regional Medical CenterComment on above:Performed By: #### CBCA, CMP, FEPR, 79095-8, TSHR, 2276-4, HA1C, 2283-09, 2131-10 #### [facility] ([id number]) [address] [facility], [address] [place] [address] #### 98540-7 #### [facility] ([id number]) [address] [place] [address] 21094NQKVJFQQKCau 41-43-1383Olivnjrsb [Mass/Vol]2.3 mg/dLLow2.4-4.9 Pro[facility] Medical CenterComment on above:Performed By: #### CBCA, CMP, FEPR, 20561-6, TSHR, 2276-4, HA1C, 2283-8, 2131-10 #### [facility] ([id number]) [address] [facility], [address] [place] [address] #### 99584-0 #### [facility] ([id number]) [address] [place] [address] 14398EKJWXBC GLUCOSEon 70-84-0264Xxmikgu [Mass/Vol]199 mg/dLHigh 65-99C[facility] HospitalComment on above:Performed By: #### CBCA, CMP, FEPR, 90048-0, TSHR, 2276-4, HA1C, 2284-8, 9 #### [facility] ([id number]) [address] [facility], [address] [place] [address] #### 38804-3 #### [facility] ([id number]) [address] [place] [address] 44399Cmrlfrg [Mass/Vol]155 mg/xUYnga48-15VdhLaomisCleveland Clinic Euclid Hospital Comment on above:Performed By: #### CBCA, CMP, FEPR, 94876-4, TSHR, 2276-4, HA1C, 2284-8, 2131-10 #### [facility] ([id number]) [address] [facility], [address] [place] [address] #### 46348-6 #### [facility] ([id number]) [address] [place] [address] 27208Whaixkr [Mass/Vol]218 mg/pTXufn21-39YioFswakmCleveland Clinic Euclid Hospital Comment on above:Performed By: #### CBCA, CMP, FEPR, 11449-7, TSHR, 2276-4, HA1C, 2284-8, 2131-10 #### [facility] ([id number]) [address] [facility], [address] [place] [address] #### 98349-3 #### [facility] ([id number]) [address] [place] [address] 25004ZWR WITH AUTO DIFFERENTIALon 26-73-8001AGHMINVFX ABSOLUTE COUNT (10*3/UL) BY AUTOMATED COUNT0.0 10*3/uLNormal0.0-0.2PChildren's Hospital of Columbus Comment on above:Performed By: #### CBCA, CMP, FEPR, 61057-9, TSHR, 2276-4, HA1C, 2284-8, 9 #### [facility] ([id number]) [address] [facility], [address] [place] [address] #### 65563-9 #### [facility] ([id number]) [address] [place] [address] 43951WSUCDPHMZ RELATIVE PERCENT BY AUTOMATED COUNT0.2 %Normal ProMPromise Hospital of East Los AngelesComment on above:Performed By: #### CBCA, CMP, FEPR, 36780-3, TSHR, 2276-4, HA1C, 2283-8, 2131-10 #### [facility] ([id number]) [address] [facility], [address] [place] [address] #### 70032-7 #### [facility] ([id number]) [address] [place] [address] 87198OCKQJAEBDJL DIFFERENTIAL TYPEAUTOMATED DIFFERENTIALNormal [facility] HospitalComment on above:Performed By: #### CBCA, CMP, FEPR, 81552-9, TSHR, 2276-4, HA1C, 4-8, 2131-10 #### [facility] ([id number]) [address] [facility], [address] [place] [address] #### 64215-0 #### [facility] ([id number]) [address] [place] [address] 13112Fbtrcbkajxg (Bld) [#/Vol]0.1 10*3/uLNormal0.0-0.4ProMedica Dow[facility] Regional Medical CenterComment on above:Performed By: #### CBCA, CMP, FEPR, 91737-4, TSHR, 2276-4, HA1C, 2284-8, 2131-10 #### [facility] ([id number]) [address], [address] [place] [address] #### 18079-3 #### [facility] ([id number]) [address] [place] [address] 73530RCDOWEAJBFX RELATIVE PERCENT BY AUTOMATED COUNT1.3 %Normal [facility] HospitalComment on above:Performed By: #### CBCA, CMP, FEPR, 00065-0, TSHR, 2276-4, HA1C, 2283-8, 2131-10 #### [facility] ([id number]) [address], [address] [place] [address] #### 60393-6 #### [facility] ([id number]) [address] [place] [address] 14272Qjrnlxbsfuk distribution width (RBC) [Ratio]16.7 %High11.5-15 [facility] HospitalComment on above:Performed By: #### CBCA, CMP, FEPR, 45894-1, TSHR, 2276-4, HA1C, 2283-8, 2131-10 #### [facility] ([id number]) [address], [address] [place] [address] #### 08775-3 #### [facility] ([id number]) [address] [place] [address] 88623Qrvnnyagqo (Bld) [Volume fraction]23.5 %Bxs73-18VpvNrkwgq [facility] Regional Medical CenterComment on above:Performed By: #### CBCA, CMP, FEPR, 99669-6, TSHR, 2276-4, HA1C, 2283-8, 2131-10 #### [facility] ([id number]) [address], [address] [place] [address] #### 40572-4 #### [facility] ([id number]) [address] [place] [address] 83595Tvkmcmhtha (Bld) [Mass/Vol]8.2 g/dLLow11.7-15.5PChildren's Hospital of ColumbusComment on above:Performed By: #### CBCA, CMP, FEPR, 78301-8, TSHR, 2276-4, HA1C, 2283-8, 2131-10 #### [facility] ([id number]) [address] [place] [address], [address] [address] #### 61595-4 #### [facility] ([id number]) [address] [place] [address] 39131HHAJZRZRIMK ABSOLUTE COUNT (10*3/UL) BY AUTOMATED COUNT0.9 10*3/uLLow1.0-3.5PChildren's Hospital of ColumbusComment on above:Performed By: #### CBCA, CMP, FEPR, 21129-8, TSHR, 2276-4, HA1C, 2283-8, 2131-10 #### [facility] ([id number]) [address] [place] [address], [address] [address] #### 85184-2 #### [facility] ([id number]) [address] [place] [address] 46184IQUXJCXYCJS RELATIVE PERCENT BY AUTOMATED COUNT12.4 %Normal [facility] HospitalComment on above:Performed By: #### CBCA, CMP, FEPR, 91091-3, TSHR, 2276-4, HA1C, 2283-, 2131-10 #### [facility] ([id number]) [address] [place] [address], [address] [address] #### 29058-4 #### [facility] ([id number]) [address] [place] [address] 17304OUP (RBC) [Entitic mass]30.2 lpRhajfw52-37PlkLloqqzPermian Regional Medical CenterComment on above:Performed By: #### CBCA, CMP, FEPR, 77100-2, TSHR, 2276-4, HA1C, 4-8, 2131-10 #### [facility] ([id number]) [address], [address] [place] [address] #### 47722-0 #### [facility] ([id number]) [address] [place] [address] 65937HODY (RBC) [Mass/Vol]34.8 g/xCHddmfs61-85VtiXnwwoaPermian Regional Medical CenterComment on above:Performed By: #### CBCA, CMP, FEPR, 38897-0, TSHR, 2276-4, HA1C, 2283-, 2131-10 #### [facility] ([id number]) [address], [address] [place] [address] #### 84518-2 #### [facility] ([id number]) [address] [place] [address] 85003VMC (RBC) [Entitic vol]87 jXJmxitv00-425RihXiiirq [facility]remont HospitalComment on above:Performed By: #### CBCA, CMP, FEPR, 38995-2, TSHR, 2276-4, HA1C, 2283-09, 2131-10 #### [facility] ([id number]) [address], [address] [place] [address] #### 06773-6 #### [facility] ([id number]) [address] [place] [address] 38449DDRYCDCXP ABSOLUTE COUNT (10*3/UL) BY AUTOMATED COUNT0.9 10*3/uLNormal0.0-0.9ProPermian Regional Medical CenterComment on above:Performed By: #### CBCA, CMP, FEPR, 18016-2, TSHR, 2276-4, HA1C, 2284-8, 2131-10 #### [facility] ([id number]) [address], [address] [place] [address] #### 45199-7 #### [facility] ([id number]) [address] [place] [address] 56364NGORFWHMD RELATIVE PERCENT BY AUTOMATED COUNT12.7 %Normal ProMPromise Hospital of East Los AngelesComment on above:Performed By: #### CBCA, CMP, FEPR, 77272-1, TSHR, 2276-4, HA1C, 2284-8, 2131-10 #### [facility] ([id number]) [address], [address] [place] [address] #### 54890-1 #### [facility] ([id number]) [address] [place] [address] 74710ZWXDIWQMFEU ABSOLUTE COUNT BY AUTOMATED COUNT5.4 10*3/uLNormal 1.5-6.6Pro[facility] Regional Medical CenterComment on above:Performed By: #### CBCA, CMP, FEPR, 07968-9, TSHR, 2276-4, HA1C, 2284-8, 2131-10 #### [facility] ([id number]) [address], [address] [place] [address] #### 03225-7 #### [facility] ([id number]) [address] [place] [address] 89649LMSPCRVXSIS RELATIVE PERCENT BY AUTOMATED COUNT73.4 %Normal [facility] HospitalComment on above:Performed By: #### CBCA, CMP, FEPR, 52462-9, TSHR, 2276-4, HA1C, 2284-8, 2131-10 #### [facility] ([id number]) [address], [address] [place] [address] #### 49538-8 #### [facility] ([id number]) [address] [place] [address] 34411Ymaxagbb mean volume (Bld) [Entitic vol]9.2 fLNormal7-12 [facility] Medical CenterComment on above:Performed By: #### CBCA, CMP, FEPR, 95671-0, TSHR, 2276-4, HA1C, 2284-8, 2131-9 #### [facility] ([id number]) [address], [address] [place] [address] #### 14580-8 #### [facility] ([id number]) [address] [place] [address] 13367Dgyijboat (Bld) [#/Vol]108 10*3/sPDoc369-418CjyKopbjsPermian Regional Medical CenterComment on above:Performed By: #### CBCA, CMP, FEPR, 55123-5, TSHR, 2276-4, HA1C, 2284-8, 2131-10 #### [facility] ([id number]) [address] [facility], [address] [place] [address] #### 17563-4 #### [facility] ([id number]) [address] [place] [address] 83474VNY COUNT2.71 X10E12/LLow3.8-5.2PChildren's Hospital of [facility] Comment on above:Performed By: #### CBCA, CMP, FEPR, 09682-4, TSHR, 2276-4, HA1C, 2284-8, 2131-9 #### [facility] ([id number]) [address], [address] [place] [address] #### 04493-7 #### [facility] ([id number]) [address] [place] [address] 11911OLB (Bld) [#/Vol]7.4 10*3/uLNormal4-11ProPermian Regional Medical CenterComment on above:Performed By: #### CBCA, CMP, FEPR, 32502-0, TSHR, 2276-4, HA1C, 2283-09, 2131-10 #### [facility] ([id number]) [address] [facility], [address] [place] [address] #### 89722-9 #### [facility] ([id number]) [address] [place] [address] 32414FPYACERTFYIHE METABOLIC PANELon 80-34-4337Hnezlhr [Mass/Vol]1.9 g/dLLow3.2-5.3PChildren's Hospital of ColumbusComment on above:Performed By: #### CBCA, CMP, FEPR, 85840-5, TSHR, 2276-4, HA1C, 2283-09, 2131-10 #### [facility] ([id number]) [address] [facility], [address] [place] [address] #### 58716-9 #### [facility] ([id number]) [address] [place] [address] 26475EOY [Catalytic activity/Vol]175 U/UCvhe47-127LjpTstbekPermian Regional Medical CenterComment on above:Performed By: #### CBCA, CMP, FEPR, 15395-7, TSHR, 2276-4, HA1C, 2283-09, 2131-10 #### [facility] ([id number]) [address] [facility], [address] [place] [address] #### 93595-6 #### [facility] ([id number]) [address] [place] [address] 62024CNO [Catalytic activity/Vol]310 U/LHigh<=31PChildren's Hospital of ColumbusComment on above:Performed By: #### CBCA, CMP, FEPR, 26957-2, TSHR, 2276-4, HA1C, 2283-09, 2131-10 #### [facility] ([id number]) [address] [facility], [address] [place] [address] #### 26967-1 #### [facility] ([id number]) [address] [place] [address] 04700Cxomz gap [Moles/Vol]2 mmol/LLow5-15[facility] Comment on above:Performed By: #### CBCA, CMP, FEPR, 57316-8, TSHR, 2276-4, HA1C, 2283-8, 2131-10 #### [facility] ([id number]) [address] [facility], [address] [place] [address] #### 58866-9 #### [facility] ([id number]) [address] [place] [address] 95285WSC [Catalytic activity/Vol]148 U/LHigh<=41ProPermian Regional Medical CenterComment on above:Performed By: #### CBCA, CMP, FEPR, 52913-2, TSHR, 2276-4, HA1C, 2283-, 2131-10 #### [facility] ([id number]) [address], [address] [place] [address] #### 13301-9 #### [facility] ([id number]) [address] [place] [address] [id number] [Mass/Vol]1.4 mg/dLHigh0.3-1.2PChildren's Hospital of ColumbusComment on above:Performed By: #### CBCA, CMP, FEPR, 57947-2, TSHR, 2276-4, HA1C, 2283-09, 2131-10 #### [facility] ([id number]) [address] [address] [address], [address] [place] [address] #### 11119-4 #### [facility] ([id number]) [address] [place] [address] [id number] [Mass/Vol]7.3 mg/dLLow8.5-10.5PChildren's Hospital of ColumbusComment on above:Performed By: #### CBCA, CMP, FEPR, 15671-5, TSHR, 2276-4, HA1C, 2283-8, 2131-10 #### [facility] ([id number]) [address], [address] [place] [address] #### 25661-6 #### [facility] ([id number]) [address] [place] [address] [id number] [Moles/Vol]111 mmol/LRwic01-929VixFqjslsPermian Regional Medical CenterComment on above:Performed By: #### CBCA, CMP, FEPR, 46600-3, TSHR, 2276-4, HA1C, 2283-09, 2131-10 #### [facility] ([id number]) [address], [address] [place] [address] #### 30567-4 #### [facility] ([id number]) [address] [place] [address] [id number] [Moles/Vol]21 mmol/SClv87-97ZbvIkafimChildren's Hospital of Columbus Comment on above:Performed By: #### CBCA, CMP, FEPR, 45504-2, TSHR, 2276-4, HA1C, 2283-09, 2131-10 #### [facility] ([id number]) [address] [address] [address], [address] [place] [address] #### 95972-6 #### [facility] ([id number]) [address] [place] [address] 73424Vakorrvhdq [Mass/Vol]0.67 mg/dLNormal0.40-1.00ProPermian Regional Medical CenterComment on above:Result Comment: METHOD TRACEABLE TO IDMS STANDARD Performed By: #### CBCA, CMP, FEPR, 16607-7, TSHR, 2276-4, HA1C, 2284-8, 2131-10 #### [facility] ([id number]) [address], [address] [place] [address] #### 98804-2 #### [facility] ([id number]) [address] [place] [address] [id number] (CKD-EPI) NON-RACE DEPENDENT>^90Normal>=60ProPermian Regional Medical CenterComment on above:Result Comment: Reported eGFR is based on the CKD-EPI 2020 equation that does not use a race coefficient.Performed By: #### CBCA, CMP, FEPR, 40489-7, TSHR, 2276-4, HA1C, 2283-8, 2131-10 #### [facility] ([id number]) [address] [facility], [address] [place] [address] #### 40238-5 #### [facility] ([id number]) [address] [place] [address] [id number] [Mass/Vol]167 mg/iMRiyb79-37TuhGvjmdyCleveland Clinic Euclid Hospital Comment on above:Performed By: #### CBCA, CMP, FEPR, 65190-8, TSHR, 2276-4, HA1C, 2283-, 2131-10 #### [facility] ([id number]) [address] [address], [address] [place] [address] #### 14420-2 #### [facility] ([id number]) [address] [place] [address] [id number] [Moles/Vol]4.2 mmol/LNormal3.5-5.0ProPermian Regional Medical CenterComment on above:Performed By: #### CBCA, CMP, FEPR, 90878-3, TSHR, 2276-4, HA1C, 228-8, 2131-10 #### [facility] ([id number]) [address], [address] [place] [address] #### 39161-4 #### [facility] ([id number]) [address] [place] [address] [id number] [Mass/Vol]5.3 g/dLLow6.0-8.0[facility] Comment on above:Performed By: #### CBCA, CMP, FEPR, 85606-7, TSHR, 2276-4, HA1C, 2283-8, 2131-10 #### [facility] ([id number]) [address] [facility] [address] [address], [address] [place] [address] #### 63011-5 #### [facility] ([id number]) [address] [place] [address] 02969Gnmmih [Moles/Vol]134 mmol/QRmftdo612-480XhbXudcyo Fremont HospitalComment on above:Performed By: #### CBCA, CMP, FEPR, 26476-9, TSHR, 2276-4, HA1C, 2283-, 2131-10 #### [facility] ([id number]) [address] [address] [address], [address] [place] [address] #### 59206-1 #### [facility] ([id number]) [address] [place] [address] 53656Cnav nitrogen [Mass/Vol]9 mg/dLNormal5-27ProPermian Regional Medical CenterComment on above:Performed By: #### CBCA, CMP, FEPR, 94796-4, TSHR, 2276-4, HA1C, 2283-, 2131-10 #### [facility] ([id number]) [address] [facility], [address] [place] [address] #### 08380-9 #### [facility] [facility] ([id number]) [address] [place] [address] 65441HQAOJAPBNV AND HEMATOCRIT, BLOODon 53-65-1638Ucleiwefmi (Bld) [Volume fraction]23.8 %Krm68-60XboHugeng [facility] Medical CenterComment on above: Performed By: #### CBCA, CMP, FEPR, 23936-0, TSHR, 2276-4, HA1C, 2283-8, 2131-10 #### [facility] ([id number]) [address], [address] [place] [address] #### 28104-3 #### [facility] ([id number]) [address] [place] [address] 67278Vqzelmdaoe (Bld) [Mass/Vol]8.1 g/dLLow11.7-15.5PChildren's Hospital of ColumbusComment on above:Performed By: #### CBCA, CMP, FEPR, 86653-7, TSHR, 6-4, HA1C, 2283-09, 2131-10 #### [facility] ([id number]) [address], [address] [place] [address] #### 41946-9 #### [facility] ([id number]) [address] [place] [address] 54887Bzrhxthomv (Bld) [Volume fraction]24.6 %Fyg59-08YzdPlczpq Mcnairy HospitalComment on above:Performed By: #### CBCA, CMP, FEPR, 50570-9, TSHR, 6-4, HA1C, 2283-09, 2131-10 #### [facility] ([id number]) [address], [address] [place] [address] #### 69229-8 #### [facility] ([id number]) [address] [place] [address] 98460Tcokityqey (Bld) [Mass/Vol]8.5 g/dLLow11.7-15.5PChildren's Hospital of ColumbusComment on above:Performed By: #### CBCA, CMP, FEPR, 95448-2, TSHR, 2276-4, HA1C, 228-8, 2131-10 #### [facility] ([id number]) [facility] [facility], [address] [place] [address] #### 15174-9 #### [facility] ([id number]) [address] [place] [address] 56172BCQXAFTNTsw 01-66-5228Elicypzbz [Mass/Vol]2.1 mg/dLNormal 1.8-2.6ProMed[facility] Regional Medical CenterComment on above:Performed By: #### CBCA, CMP, FEPR, 33001-2, TSHR, 2276-4, HA1C, 2283-8, 2131-10 #### [facility] ([id number]) [address] [facility], [address] [place] [address] #### 74731-8 #### [facility] ([id number]) [address] [place] [address] 98442Jbmvpyuwq [Mass/Vol]1.9 mg/dLNormal1.8-2.6ProPermian Regional Medical CenterComment on above:Performed By: #### CBCA, CMP, FEPR, 44037-3, TSHR, 2276-4, HA1C, 2283-, 2131-10 #### [facility] ([id number]) [address] [facility], [address] [place] [address] #### 40118-6 #### [facility] ([id number]) [address] [place] [address] 25449EXBCBIMEPRpw 64-59-1719Rjhbnxkdh [Mass/Vol]1.6 mg/dLLow2.4-4.9 [facility] Medical CenterComment on above:Performed By: #### CBCA, CMP, FEPR, 15847-5, TSHR, 2276-4, HA1C, 228-8, 2131-10 #### [facility] ([id number]) [address] [facility], [address] [place] [address] #### 17347-6 #### [facility] ([id number]) [address] [place] [address] 09848KEBUEUQ GLUCOSEon 37-90-0724Uiqbnkl [Mass/Vol]169 mg/dLHigh 65-99[facility]uclid HospitalComment on above:Performed By: #### CBCA, CMP, FEPR, 31463-3, TSHR, 2276-4, HA1C, 2284-8, 2131-10 #### [facility] ([id number]) [address] [address] #### 12544-9 #### [facility] ([id number]) [address] [place] [address] 90636Kfbnpgk [Mass/Vol]80 mg/kGQrthiq97-82ItbAzhosjCleveland Clinic Euclid Hospital Comment on above:Performed By: #### CBCA, CMP, FEPR, 00702-9, TSHR, 2276-4, HA1C, 2283-, 2131-10 #### [facility] ([id number]) [address] [address] #### 24224-5 #### [facility] ([id number]) [address] [place] [address] 54050ANZ WITH AUTO DIFFERENTIALon 21-66-4266UAFSQSEIC ABSOLUTE COUNT (10*3/UL) BY AUTOMATED COUNT0.0 10*3/uLNormal0.0-0.2PChildren's Hospital of Columbus Comment on above:Performed By: #### CBCA, CMP, FEPR, 78443-9, TSHR, 2276-4, HA1C, 2284-8, 2131-10 #### [facility] ([id number]) [address] [facility] [address] [place] [address] #### 91832-8 #### [facility] ([id number]) [address] [place] [address] 34376ETMENWCFO RELATIVE PERCENT BY AUTOMATED COUNT0.2 %Normal [facility] HospitalComment on above:Performed By: #### CBCA, CMP, FEPR, 72361-9, TSHR, 2276-4, HA1C, 2284-8, 9 #### [facility] ([id number]) [address], [address] [place] [address] #### 58237-8 #### [facility] ([id number]) [address] [place] [address] 86626YOLVHISNQGM DIFFERENTIAL TYPEAUTOMATED DIFFERENTIALNormal [facility] HospitalComment on above:Performed By: #### CBCA, CMP, FEPR, 15519-9, TSHR, 2276-4, HA1C, 2284-8, 2131-10 #### [facility] ([id number]) [address], [address] [place] [address] #### 21782-8 #### [facility] ([id number]) [address] [place] [address] 37728Ayzsxkzzmvr (Bld) [#/Vol]0.2 10*3/uLNormal0.0-0.4Pro[facility]ica [facility] Medical CenterComment on above:Performed By: #### CBCA, CMP, FEPR, 44656-9, TSHR, 2276-4, HA1C, 2284-8, 2131-10 #### [facility] ([id number]) [address] [facility], [address] [place] [address] #### 94077-1 #### [facility] ([id number]) [address] [place] [address] 00503IHSPSKSHDKO RELATIVE PERCENT BY AUTOMATED COUNT1.7 %Normal [facility] HospitalComment on above:Performed By: #### CBCA, CMP, FEPR, 39891-9, TSHR, 2276-4, HA1C, 2284-8, 2131-10 #### [facility] ([id number]) [address], [address] [place] [address] #### 14011-1 #### [facility] ([id number]) [address] [place] [address] 35324Hlatajlmhoe distribution width (RBC) [Ratio]17.3 %High11.5-15 [facility] Medical CenterComment on above:Performed By: #### CBCA, CMP, FEPR, 93503-2, TSHR, 2276-4, HA1C, 2283-8, 2131-10 #### [facility] ([id number]) [address] [facility], [address] [place] [address] #### 77002-4 #### [facility] ([id number]) [address] [place] [address] 82494Zbpttdjxtn (Bld) [Volume fraction]20.9 %Mvt59-02TtsYqjzyn [facility] Medical CenterComment on above:Performed By: #### CBCA, CMP, FEPR, 65481-9, TSHR, 2276-4, HA1C, 2283-, 2131-10 #### [facility] ([id number]) [address] [facility], [address] [place] [address] #### 21250-8 #### [facility] ([id number]) [address] [place] [address] 89165Vuizrjthkg (Bld) [Mass/Vol]7.1 g/dLLow11.7-15.5Pro[facility] Medical CenterComment on above:Performed By: #### CBCA, CMP, FEPR, 84073-7, TSHR, 2276-4, HA1C, 4-8, 2131-10 #### [facility] ([id number]) [address], [address] [place] [address] #### 86137-6 #### [facility] ([id number]) [address] [place] [address] 86479FEQJBKNAIYV ABSOLUTE COUNT (10*3/UL) BY AUTOMATED COUNT1.0 10*3/uLNormal1.0-3.5Pro[facility] Medical CenterComment on above:Performed By: #### CBCA, CMP, FEPR, 83108-6, TSHR, 2276-4, HA1C, 2284-8, 2131-10 #### [facility] ([id number]) [address] [facility], [address] [place] [address] #### 45808-9 #### [facility] ([id number]) [address] [place] [address] 14992VJNLQULMPAL RELATIVE PERCENT BY AUTOMATED COUNT10.8 %Normal [facility] Medical CenterComment on above:Performed By: #### CBCA, CMP, FEPR, 87788-2, TSHR, 2276-4, HA1C, 2284-8, 2131-10 #### [facility] ([id number]) [address] [facility], [address] [address] #### 31270-2 #### [facility] ([id number]) [address] [place] [address] 11911LAU (RBC) [Entitic mass]29.8 cpUkiuix41-17YjeOjbzls [facility] CenterComment on above:Performed By: #### CBCA, CMP, FEPR, 85189-8, TSHR, 2276-4, HA1C, 2284-8, 2131-10 #### [facility] ([id number]) [address] [facility], [address] [place] [address] #### 79820-7 #### [facility] ([id number]) [address] [place] [address] 13681ESGO (RBC) [Mass/Vol]33.9 g/tINnakgs57-87CyyUkxofrPermian Regional Medical CenterComment on above:Performed By: #### CBCA, CMP, FEPR, 70632-1, TSHR, 2276-4, HA1C, 2283-8, 2131-10 #### [facility] ([id number]) [address], [address] [place] [address] #### 91721-5 #### [facility] ([id number]) [address] [place] [address] 08887UIT (RBC) [Entitic vol]88 nNLajnwu82-785JvtDyzjpv [facility]remont HospitalComment on above:Performed By: #### CBCA, CMP, FEPR, 02747-8, TSHR, 2276-4, HA1C, 2283-09, 2131-10 #### [facility] ([id number]) [address], [address] [place] [address] #### 01475-7 #### [facility] ([id number]) [address] [place] [address] 93631UTHOQUCBZ ABSOLUTE COUNT (10*3/UL) BY AUTOMATED COUNT0.9 10*3/uLNormal0.0-0.9[facility] HospitalComment on above:Performed By: #### CBCA, CMP, FEPR, 53152-9, TSHR, 2276-4, HA1C, 2283-, 2131-10 #### [facility] ([id number]) [address] [facility], [address] [place] [address] #### 65298-5 #### [facility] ([id number]) [address] [place] [address] 79360MKKVXVRLM RELATIVE PERCENT BY AUTOMATED COUNT10.0 %Normal ProMPromise Hospital of East Los AngelesComment on above:Performed By: #### CBCA, CMP, FEPR, 62262-4, TSHR, 2276-4, HA1C, 2284-8, 2131-10 #### [facility] ([id number]) [address], [address] [place] [address] #### 77445-5 #### [facility] ([id number]) [address] [place] [address] 57047WPPZRGHIGWF ABSOLUTE COUNT BY AUTOMATED COUNT7.0 10*3/uLHigh 1.5-6.6ProWadsworth-Rittman Hospitalca [facility] Medical CenterComment on above:Performed By: #### CBCA, CMP, FEPR, 90922-3, TSHR, 2276-4, HA1C, 2283-8, 2131-10 #### [facility] ([id number]) [address], [address] [place] [address] #### 07636-8 #### [facility] ([id number]) [address] [place] [address] 09913NBQTLPUNTXQ RELATIVE PERCENT BY AUTOMATED COUNT77.3 %Normal [facility] HospitalComment on above:Performed By: #### CBCA, CMP, FEPR, 40921-1, TSHR, 2276-4, HA1C, 2283-, 2131-10 #### [facility] ([id number]) [address], [address] [place] [address] #### 71998-3 #### [facility] ([id number]) [address] [place] [address] 75006Tfcarixu mean volume (Bld) [Entitic vol]8.5 fLNormal7-12 [facility] HospitalComment on above:Performed By: #### CBCA, CMP, FEPR, 58251-6, TSHR, 2276-4, HA1C, 2283-, 2131-10 #### [facility] ([id number]) [address], [address] [place] [address] #### 95388-8 #### [facility] ([id number]) [address] [place] [address] 85137Ucmonnnsn (Bld) [#/Vol]125 10*3/rXYhl851-339JhiKqziraPermian Regional Medical CenterComment on above:Performed By: #### CBCA, CMP, FEPR, 96304-0, TSHR, 2276-4, HA1C, 2284-8, 2131-9 #### [facility] ([id number]) [address] [facility], [address] [place] [address] #### 32825-4 #### [facility] ([id number]) [address] [place] [address] 15761CUL COUNT2.37 X10E12/LLow3.8-5.2PChildren's Hospital of [facility] Comment on above:Performed By: #### CBCA, CMP, FEPR, 69339-4, TSHR, 2276-4, HA1C, 2283-8, 2131-10 #### [facility] ([id number]) [address] [facility], [address] [place] [address] #### 92138-8 #### [facility] ([id number]) [address] [place] [address] 88247KUJ (Bld) [#/Vol]9.1 10*3/uLNormal4-11ProPermian Regional Medical CenterComment on above:Performed By: #### CBCA, CMP, FEPR, 49235-7, TSHR, 2276-4, HA1C, 2284-8, 2131- #### [facility] ([id number]) [address], [address] [place] [address] #### 87134-0 #### [facility] ([id number]) [address] [place] [address] 75070SAZPALGRCDZJP METABOLIC PANELon 78-64-8127Lnovmrw [Mass/Vol]2.1 g/dLLow3.2-5.3PChildren's Hospital of ColumbusComment on above:Performed By: #### CBCA, CMP, FEPR, 91434-9, TSHR, 2276-4, HA1C, 2283-09, 2131-10 #### [facility] ([id number]) [address], [address] [place] [address] #### 00301-4 #### [facility] ([id number]) [address] [place] [address] 31160IRJ [Catalytic activity/Vol]165 U/JNgkj66-219LamQkcilfPermian Regional Medical CenterComment on above:Performed By: #### CBCA, CMP, FEPR, 98952-9, TSHR, 2276-4, HA1C, 2283-09, 2131-10 #### [facility] ([id number]) [address] [facility], [address] [place] [address] #### 50053-7 #### [facility] ([id number]) [address] [place] [address] 40379ZZW [Catalytic activity/Vol]382 U/LHigh<=31PChildren's Hospital of ColumbusComment on above:Performed By: #### CBCA, CMP, FEPR, 63237-1, TSHR, 2276-4, HA1C, 2283-09, 2131-10 #### [facility] ([id number]) [address], [address] [place] [address] #### 80652-4 #### [facility] ([id number]) [address] [place] [address] 69348Pxxqp gap [Moles/Vol]6 mmol/LNormal5-15ProPermian Regional Medical CenterComment on above:Performed By: #### CBCA, CMP, FEPR, 00000-1, TSHR, 2276-4, HA1C, 2283-09, 2131-10 #### [facility] ([id number]) [address] [facility], [address] [place] [address] #### 92574-0 #### [facility] ([id number]) [address] [place] [address] 92663YCN [Catalytic activity/Vol]76 U/LHigh<=41ProMedica [facility] Medical CenterComment on above:Performed By: #### CBCA, CMP, FEPR, 46997-1, TSHR, 2276-4, HA1C, 2283-8, 2131-10 #### [facility] ([id number]) [address] [facility], [address] [place] [address] #### 25543-5 #### [facility] ([id number]) [address] [place] [address] 04327Ueettijak [Mass/Vol]1.7 mg/dLHigh0.3-1.2ProMedJohn F. Kennedy Memorial HospitalComment on above:Performed By: #### CBCA, CMP, FEPR, 33742-4, TSHR, 2276-4, HA1C, 2283-, 2131-10 #### [facility] ([id number]) [address] [facility], [address] [place] [address] #### 58224-1 #### [facility] ([id number]) [address] [place] [address] 11591Mnadinm [Mass/Vol]7.2 mg/dLLow8.5-10.5PChildren's Hospital of ColumbusComment on above:Performed By: #### CBCA, CMP, FEPR, 16082-0, TSHR, 2276-4, HA1C, 2283-, 2131-10 #### [facility] ([id number]) [address] [facility], [address] [place] [address] #### 34700-1 #### [facility] ([id number]) [address] [place] [address] 32206Fimfelbk [Moles/Vol]112 mmol/FEvkb17-387LgvYvkovwCleveland Clinic Euclid HospitalComment on above:Performed By: #### CBCA, CMP, FEPR, 31103-7, TSHR, 2276-4, HA1C, 2284-8, 2131-10 #### [facility] ([id number]) [address], [address] [place] [address] #### 00971-7 #### [facility] ([id number]) [address] [place], [place] [address]NR[address] [Moles/Vol]20 mmol/VFpc23-01AmrIvnuzbChildren's Hospital of Columbus Comment on above:Performed By: #### CBCA, CMP, FEPR, 72030-0, TSHR, 2276-4, HA1C, 2283-8, 2131-10 #### [facility] ([id number]) [address], [address] [place] [address] #### 53646-1 #### [facility] ([id number]) [address] [place] [address] 01373Jbcmqaukiu [Mass/Vol]0.63 mg/dLNormal0.40-1.00ProPermian Regional Medical CenterComment on above:Result Comment: METHOD TRACEABLE TO IDMS STANDARD Performed By: #### CBCA, CMP, FEPR, 85637-9, TSHR, 2276-4, HA1C, 2283-8, 2131-10 #### [facility] ([id number]) [address], [address] [place] [address] #### 26306-6 #### [facility] ([id number]) [address] [place] [address] 65474EGBO (CKD-EPI) NON-RACE DEPENDENT>^90Normal>=60ProPermian Regional Medical CenterComment on above:Result Comment: eGFR not reported due to non- numeric value for Creatinine. Reported eGFR is based on the CKD-EPI 2020 equation that does not use a race coefficient.Performed By: #### CBCA, CMP, FEPR, 00962-6, TSHR, 2276-4, HA1C, 2283-09, 2131-10 #### [facility] ([id number]) [address] [facility], [address] [place] [address] #### 17959-8 #### [facility] ([id number]) [address] [place] [address] 31908Gemclzq [Mass/Vol]101 mg/dKIben10-28CisXzywdoCleveland Clinic Euclid Hospital Comment on above:Performed By: #### CBCA, CMP, FEPR, 09928-8, TSHR, 2276-4, HA1C, 2283-09, 2131-10 #### [facility] ([id number]) [address] [facility], [address] [address] #### 02251-9 #### [facility] ([id number]) [address] [place] [address] 51053Yjliyqnyf [Moles/Vol]3.6 mmol/LNormal3.5-5.0[facility] HospitalComment on above:Performed By: #### CBCA, CMP, FEPR, 88929-6, TSHR, 2276-4, HA1C, 2283-09, 2131-10 #### [facility] ([id number]) [address] [place] [address], [address] [place] [address] #### 86636-5 #### [facility] ([id number]) [address] [place] [address] 83463Ezushen [Mass/Vol]5.1 g/dLLow6.0-8.0[facility] Comment on above:Performed By: #### CBCA, CMP, FEPR, 47078-4, TSHR, 2276-4, HA1C, 2283-09, 2131-10 #### [facility] ([id number]) [address] [facility], [address] [place] [address] #### 22155-6 #### [facility] ([id number]) [address] [place] [address] 35327Ylwiec [Moles/Vol]138 mmol/TMhdewg591-750EidWekoed [facility] HospitalComment on above:Performed By: #### CBCA, CMP, FEPR, 53369-1, TSHR, 2276-4, HA1C, 2283-8, 2131-10 #### [facility] ([id number]) [address] [facility], [address] [place] [address] #### 38635-5 #### [facility] ([id number]) [address] [place] [address] 74070Alfh nitrogen [Mass/Vol]10 mg/dLNormal5-27ProPermian Regional Medical CenterComment on above:Performed By: #### CBCA, CMP, FEPR, 11084-3, TSHR, 2276-4, HA1C, 2283-, 2131-10 #### [facility] ([id number]) [address] [facility], [address] [place] [address] #### 53715-8 #### [facility] ([id number]) [address] [place] [address] 12445HVAIERCJIQ AND HEMATOCRIT, BLOODon 21-75-2404Oycyvtxdcz (Bld) [Volume fraction]26.3 %Tmq09-74MevHddfjoPermian Regional Medical CenterComment on above: Performed By: #### CBCA, CMP, FEPR, 27876-4, TSHR, 2276-4, HA1C, 2283-09, 2131-10 #### [facility] ([id number]) [address] [facility], [address] [place] [address] #### 08087-9 #### [facility] ([id number]) [address] [place] [address] 97516Cyaggmtofj (Bld) [Mass/Vol]9.0 g/dLLow11.7-15.5ProMedica [facility] Regional Medical CenterComment on above:Performed By: #### CBCA, CMP, FEPR, 53891-8, TSHR, 2276-4, HA1C, 2284-8, 2131-10 #### [facility] ([id number]) [address] [facility], [address] [place] [address] #### 33485-4 #### [facility] ([id number]) [address] [place] [address] 39315Wdmzmpeihp (Bld) [Volume fraction]19.3 %Zgm29-61TgqTkcupn [facility] Medical CenterComment on above:Performed By: #### CBCA, CMP, FEPR, 65393-1, TSHR, 2276-4, HA1C, 2283-8, 2131-10 #### [facility] ([id number]) [address] [facility], [address] [place] [address] #### 11213-5 #### [facility] ([id number]) [address] [place] [address] [id number] (Bld) [Mass/Vol]6.5 g/dLCritically low11.7-15.5 [facility] CenterComment on above:Performed By: #### CBCA, CMP, FEPR, 24546-2, TSHR, 2276-4, HA1C, 2283-8, 2131-10 #### [facility] ([id number]) [address] [facility], [address] [place] [address] #### 84711-7 #### [facility] ([id number]) [address] [place] [address] 65614NPBHKXAITsj 08-82-4669Ntpcbvzpx [Mass/Vol]2.2 mg/dLNormal 1.8-2.6[facility]nairy HospitalComment on above:Performed By: #### CBCA, CMP, FEPR, 05758-2, TSHR, 6-4, HA1C, 2283-09, 2131-10 #### [facility] ([id number]) [address], [address] [place] [address] #### 72204-9 #### [facility] ([id number]) [address] [place] [address] 03779Oqkexpidx [Mass/Vol]1.9 mg/dLNormal1.8-2.6ProPermian Regional Medical CenterComment on above:Performed By: #### CBCA, CMP, FEPR, 60248-7, TSHR, 6-4, HA1C, 2283-09, 2131-10 #### [facility] ([id number]) [address] [facility], [address] [place] [address] #### 17919-9 #### [facility] ([id number]) [address] [place] [address] [id number] 31-24-9502Bnpkbnnmv [Moles/Vol]4.0 mmol/LNormal 3.5-5.0ProPermian Regional Medical CenterComment on above:Performed By: #### CBCA, CMP, FEPR, 32400-7, TSHR, 6-4, HA1C, 2283-09, 2131-10 #### [facility] ([id number]) [address], [address] [place] [address] #### 23966-7 #### [facility] ([id number]) [address] [place] [address] [id number] WITH AUTO DIFFERENTIALon [id number] ABSOLUTE COUNT (10*3/UL) BY AUTOMATED COUNT0.0 10*3/uLNormal0.0-0.2PChildren[facility] Comment on above:Performed By: #### CBCA, CMP, FEPR, 26184-3, TSHR, 2276-4, HA1C, 2284-8, 2131-10 #### [facility] ([id number]) [address], [address] [place] [address] #### 92117-7 #### [facility] ([id number]) [address] [place] [address] 38615CUHOCYUFG RELATIVE PERCENT BY AUTOMATED COUNT0.2 %Normal ProMPromise Hospital of East Los AngelesComment on above:Performed By: #### CBCA, CMP, FEPR, 68125-2, TSHR, 2276-4, HA1C, 2283-8, 2131-10 #### [facility] ([id number]) [address], [address] [place] [address] #### 36785-9 #### [facility] ([id number]) [address] [place] [address] [id number] DIFFERENTIAL TYPEAUTOMATED DIFFERENTIALNormal [facility] HospitalComment on above:Performed By: #### CBCA, CMP, FEPR, 05280-1, TSHR, 2276-4, HA1C, 2283-, 2131-10 #### [facility] ([id number]) [address], [address] [place] [address] #### 69174-8 #### [facility] ([id number]) [address] [place] [address] [id number] (Bld) [#/Vol]0.2 10*3/uLNormal0.0-0.4ProWadsworth-Rittman Hospitalca [facility] CenterComment on above:Performed By: #### CBCA, CMP, FEPR, 11639-8, TSHR, 2276-4, HA1C, 4-8, 2131-10 #### [facility] ([id number]) [address], [address] [place] [address] #### 42769-2 #### [facility] ([id number]) [address] [place] [address] 07076KLFETXBIYVN RELATIVE PERCENT BY AUTOMATED COUNT1.6 %Normal [facility] HospitalComment on above:Performed By: #### CBCA, CMP, FEPR, 77310-6, TSHR, 2276-4, HA1C, 2284-8, 2131-10 #### [facility] ([id number]) [address], [address] [place] [address] #### 37757-0 #### [facility] ([id number]) [address] [place] [address] 18422Diinrjqbezf distribution width (RBC) [Ratio]17.1 %High11.5-15 [facility] HospitalComment on above:Performed By: #### CBCA, CMP, FEPR, 94750-4, TSHR, 2276-4, HA1C, 2283-, 2131-10 #### [facility] ([id number]) [address] [facility] [facility] [address] [place] [address] #### 17974-2 #### [facility] ([id number]) [address] [place] [address] 21979Elbzrdbxfc (Bld) [Volume fraction]19.3 %Hao10-10RhuWxfotc [facility] CenterComment on above:Performed By: #### CBCA, CMP, FEPR, 42540-9, TSHR, 2276-4, HA1C, 228-8, 2131-10 #### [facility] ([id number]) [address], [address] [place] [address] #### 78476-2 #### [facility] ([id number]) [address] [place] [address] 04811Ijovfwyryb (Bld) [Mass/Vol]6.5 g/dLCritically low11.7-15.5 [facility] HospitalComment on above:Performed By: #### CBCA, CMP, FEPR, 18321-1, TSHR, 2276-4, HA1C, 2283-8, 2131-10 #### [facility] ([id number]) [address] [facility], [address] [place] [address] #### 81803-8 #### [facility] ([id number]) [address] [place] [address] 69124BMKRUBQSSUI ABSOLUTE COUNT (10*3/UL) BY AUTOMATED COUNT1.2 10*3/uLNormal1.0-3.5ProMedica [facility] Medical CenterComment on above:Performed By: #### CBCA, CMP, FEPR, 73108-5, TSHR, 2276-4, HA1C, 2283-8, 2131-10 #### [facility] ([id number]) [address] [facility], [address] [place] [address] #### 19496-8 #### [facility] ([id number]) [address] [place] [address] 50127RSOSXTYBFSC RELATIVE PERCENT BY AUTOMATED COUNT9.5 %Normal [facility] HospitalComment on above:Performed By: #### CBCA, CMP, FEPR, 08544-5, TSHR, 2276-4, HA1C, 2283-, 2131-10 #### [facility] ([id number]) [address] [facility], [address] [place] [address] #### 94702-5 #### [facility] ([id number]) [address] [place] [address] 16150IPX (RBC) [Entitic mass]29.3 bwAhwsfa69-62OkoHwpkoh [facility] Medical CenterComment on above:Performed By: #### CBCA, CMP, FEPR, 25952-3, TSHR, 2276-4, HA1C, 2284-8, 2131-10 #### [facility] ([id number]) [address], [address] [place] [address] #### 27461-2 #### [facility] ([id number]) [address] [place] [address] 49411HQRT (RBC) [Mass/Vol]33.8 g/mMBkqhad44-70FopQxybuwPermian Regional Medical CenterComment on above:Performed By: #### CBCA, CMP, FEPR, 61780-0, TSHR, 2276-4, HA1C, 2283-, 2131-10 #### [facility] ([id number]) [address], [address] [place] [address] #### 93082-1 #### [facility] ([id number]) [address] [place] [address] 34069GWY (RBC) [Entitic vol]87 lIUyqqwr00-801HknCtkogz [facility] HospitalComment on above:Performed By: #### CBCA, CMP, FEPR, 42744-1, TSHR, 2276-4, HA1C, 2283-09, 2131-10 #### [facility] ([id number]) [address], [address] [place] [address] #### 76087-6 #### [facility] ([id number]) [address] [place] [address] [id number] ABSOLUTE COUNT (10*3/UL) BY AUTOMATED COUNT0.7 10*3/uLNormal0.0-0.9ProPermian Regional Medical CenterComment on above:Performed By: #### CBCA, CMP, FEPR, 03065-3, TSHR, 2276-4, HA1C, 2283-, 2131-10 #### [facility] ([id number]) [address], [address] [place] [address] #### 78152-4 #### [facility] ([id number]) [address] [place] [address] 43308BSUWZQZMK RELATIVE PERCENT BY AUTOMATED COUNT5.3 %Normal [facility] HospitalComment on above:Performed By: #### CBCA, CMP, FEPR, 71346-9, TSHR, 2276-4, HA1C, 2284-8, 2131-9 #### [facility] ([id number]) [address] [facility], [address] [place] [address] #### 39649-8 #### [facility] ([id number]) [address] [place] [address] [id number] ABSOLUTE COUNT BY AUTOMATED COUNT10.2 10*3/uLHigh 1.5-6.6ProWadsworth-Rittman Hospitalca [facility] Medical CenterComment on above:Performed By: #### CBCA, CMP, FEPR, 09821-2, TSHR, 2276-4, HA1C, 2284-8, 2131-10 #### [facility] ([id number]) [address] [facility], [address] [place] [address] #### 89233-7 #### [facility] ([id number]) [address] [place] [address] 17259FTDNCQGTIWY RELATIVE PERCENT BY AUTOMATED COUNT83.4 %Normal [facility] HospitalComment on above:Performed By: #### CBCA, CMP, FEPR, 98248-1, TSHR, 2276-4, HA1C, 2284-8, 2131-9 #### [facility] ([id number]) [address] [facility], [address] [place] [address] #### 24988-8 #### [facility] ([id number]) [address] [place] [address] 21893Gmkfgmcm mean volume (Bld) [Entitic vol]8.5 fLNormal7-12 [facility] HospitalComment on above:Performed By: #### CBCA, CMP, FEPR, 02520-7, TSHR, 2276-4, HA1C, 2284-8, 2131- #### [facility] ([id number]) [address], [address] [place] [address] #### 50430-1 #### [facility] ([id number]) [address] [place], [place] [address]Mavxwnyby (Bld) [#/Vol]131 10*3/yVZxl006-851FtrOxenjdPermian Regional Medical CenterComment on above:Performed By: #### CBCA, CMP, FEPR, 30370-4, TSHR, 2276-4, HA1C, 2283-8, 2131-10 #### [facility] ([id number]) [address], [address] [place] [address] #### 21938-1 #### [facility] ([id number]) [address] [place] [address] 23273FKI COUNT2.23 X10E12/LLow3.8-5.2PChildren[facility] Comment on above:Performed By: #### CBCA, CMP, FEPR, 90717-9, TSHR, 2276-4, HA1C, 4-8, 2131- #### [facility] ([id number]) [address], [address] [place] [address] #### 11803-0 #### [facility] ([id number]) [address] [place] [address] 12060WXI (Bld) [#/Vol]12.3 10*3/uLHigh4-11[facility] Comment on above:Performed By: #### CBCA, CMP, FEPR, 85586-4, TSHR, 2276-4, HA1C, 2284-8, 2131-9 #### [facility] ([id number]) [address] [facility], [address] [place] [address] #### 50702-0 #### [facility] ([id number]) [address] [place] [address] 13188QNQGMSQKOJASR METABOLIC PANELon 03-54-8033Rraljjz [Mass/Vol]2.0 g/dLLow3.2-5.3ProMedJohn F. Kennedy Memorial HospitalComment on above:Performed By: #### CBCA, CMP, FEPR, 68382-7, TSHR, 2276-4, HA1C, 2284-8, 2131-10 #### [facility] ([id number]) [address] [facility], [address] [place] [address] #### 74225-6 #### [facility] ([id number]) [address] [place] [address] 62261RTD [Catalytic activity/Vol]152 U/RZdec02-567HcjPxrjdh [facility] Medical CenterComment on above:Performed By: #### CBCA, CMP, FEPR, 96719-6, TSHR, 2276-4, HA1C, 2283-8, 2131-10 #### [facility] ([id number]) [address] [facility], [address] [place] [address] #### 90458-4 #### [facility] ([id number]) [address] [place] [address] 53902YDC [Catalytic activity/Vol]563 U/LHigh<=31PChildren's Hospital of ColumbusComment on above:Performed By: #### CBCA, CMP, FEPR, 36112-5, TSHR, 2276-4, HA1C, 4-8, 2131-10 #### [facility] ([id number]) [address] [facility], [address] [place] [address] #### 13892-0 #### [facility] ([id number]) [address] [place] [address] [place] [address]Wqdvg gap [Moles/Vol]4 mmol/LLow5-15[facility] Comment on above:Performed By: #### CBCA, CMP, FEPR, 45601-7, TSHR, 2276-4, HA1C, 2283-, 2131-10 #### [facility] ([id number]) [address] [facility], [address] [place] [address] #### 15773-1 #### [facility] ([id number]) [address] [place] [address] 66755DPD [Catalytic activity/Vol]73 U/LHigh<=41ProPermian Regional Medical CenterComment on above:Performed By: #### CBCA, CMP, FEPR, 59163-6, TSHR, 2276-4, HA1C, 2283-09, 2131-10 #### [facility] ([id number]) [address] [facility], [address] [place] [address] #### 58322-5 #### [facility] ([id number]) [address] [place] [address] 37506Sjmttljdb [Mass/Vol]1.6 mg/dLHigh0.3-1.2PChildren's Hospital of ColumbusComment on above:Performed By: #### CBCA, CMP, FEPR, 17257-9, TSHR, 2276-4, HA1C, 2283-09, 2131-10 #### [facility] ([id number]) [address] [facility], [address] [place] [address] #### 63000-0 #### [facility] ([id number]) [address] [place] [address] 78580Nqvpjeg [Mass/Vol]7.2 mg/dLLow8.5-10.5PChildren's Hospital of ColumbusComment on above:Performed By: #### CBCA, CMP, FEPR, 63540-5, TSHR, 2276-4, HA1C, 2283-8, 2131-10 #### [facility] ([id number]) [address], [address] [place] [address] #### 55536-9 #### [facility] ([id number]) [address] [place] [address] 74982Rkourgca [Moles/Vol]118 mmol/CMxhw41-434CptFnuwevPermian Regional Medical CenterComment on above:Performed By: #### CBCA, CMP, FEPR, 19900-6, TSHR, 2276-4, HA1C, 2283-, 2131-10 #### [facility] ([id number]) [address], [address] [place] [address] #### 08749-8 #### [facility] ([id number]) [address] [place] [address] 66153PP2 [Moles/Vol]21 mmol/BCuy86-62HxuTneodmChildren's Hospital of Columbus Comment on above:Performed By: #### CBCA, CMP, FEPR, 73063-1, TSHR, 2276-4, HA1C, 2283-, 2131-10 #### [facility] ([id number]) [address], [address] [place] [address] #### 94030-7 #### [facility] ([id number]) [address] [place] [address] 97133Goeobpviev [Mass/Vol]0.62 mg/dLNormal0.40-1.00ProPermian Regional Medical CenterComment on above:Result Comment: METHOD TRACEABLE TO IDMS STANDARD Performed By: #### CBCA, CMP, FEPR, 23657-5, TSHR, 2276-4, HA1C, 2283-, 2131-10 #### [facility] ([id number]) [address], [address] [place] [address] #### 66325-1 #### [facility] ([id number]) [address] [place] [address] 06001GVPV (CKD-EPI) NON-RACE DEPENDENT>^90Normal>=60ProPermian Regional Medical CenterComment on above:Result Comment: eGFR not reported due to non- numeric value for Creatinine. Reported eGFR is based on the CKD-EPI 2020 equation that does not use a race coefficient.Performed By: #### CBCA, CMP, FEPR, 59294-9, TSHR, 2276-4, HA1C, 2283-8, 2131-10 #### [facility] ([id number]) [address] [place] [address], [address] [place] [address] #### 93504-0 #### [facility] ([id number]) [address] [place] [address] 12590Izsxxoc [Mass/Vol]138 mg/mWSixi66-76HguXlfkzbCleveland Clinic Euclid Hospital Comment on above:Performed By: #### CBCA, CMP, FEPR, 52365-6, TSHR, 2276-4, HA1C, 2283-, 2131-10 #### [facility] ([id number]) [address] [place] [address], [address] [place] [address] #### 84116-2 #### [facility] ([id number]) [address] [place] [address] 87679Eiicsdeho [Moles/Vol]3.1 mmol/LLow3.5-5.0ProPermian Regional Medical CenterComment on above:Performed By: #### CBCA, CMP, FEPR, 38504-0, TSHR, 2276-4, HA1C, 2283-, 2131-10 #### [facility] ([id number]) [address] [place] [address], [address] [place] [address] #### 10620-7 #### [facility] ([id number]) [address] [place] [address] 49797Rekrfom [Mass/Vol]5.1 g/dLLow6.0-8.0[facility] Comment on above:Performed By: #### CBCA, CMP, FEPR, 69073-1, TSHR, 2276-4, HA1C, 8, 2131-10 #### [facility] ([id number]) [address], [address] [place] [address] #### 41989-3 #### [facility] ([id number]) [address] [place] [address] 99742Ousjlg [Moles/Vol]143 mmol/RYaetzb145-195CseGmiwul [facility] HospitalComment on above:Performed By: #### CBCA, CMP, FEPR, 04049-3, TSHR, 6-4, HA1C, 2283-09, 2131-10 #### [facility] ([id number]) [address], [address] [place] [address] #### 04046-5 #### [facility] ([id number]) [address] [place] [address] 03189Sirk nitrogen [Mass/Vol]11 mg/dLNormal5-27ProPermian Regional Medical CenterComment on above:Performed By: #### CBCA, CMP, FEPR, 66761-8, TSHR, 6-4, HA1C, 2283-09, 2131-10 #### [facility] ([id number]) [address], [address] [place] [address] #### 08836-9 #### [facility] ([id number]) [address] [place] [address] 50781QZXHBHBMORpv 78-37-1974Ywsrqkkfzf (Bld) [Mass/Vol]7.0 g/dLLow 11.7-15.5PChildren's Hospital of ColumbusComment on above:Performed By: #### CBCA, CMP, FEPR, 75813-8, TSHR, 2276-4, HA1C, 2283-8, 2131-10 #### [facility] ([id number]) [address], [address] [place] [address] #### 64225-8 #### [facility] ([id number]) [address] [place] [address] 61237ZLVLGTKPZT AND HEMATOCRIT, BLOODon 60-75-3877Whsllnpalo (Bld) [Volume fraction]22.1 %Xaj34-89BhzYysawhPermian Regional Medical CenterComment on above: Performed By: #### CBCA, CMP, FEPR, 88712-4, TSHR, 2276-4, HA1C, 2283-8, 2131-10 #### [facility] ([id number]) [address] [facility], [address] [place] [address] #### 15173-0 #### [facility] ([id number]) [address] [place] [address] 40429Qitfwjjymv (Bld) [Mass/Vol]7.2 g/dLLow11.7-15.5ProMedica [facility] Regional Medical CenterComment on above:Performed By: #### CBCA, CMP, FEPR, 51611-5, TSHR, 2276-4, HA1C, 2283-, 2131-10 #### [facility] ([id number]) [address] [facility], [address] [place] [address] #### 12182-4 #### [facility] ([id number]) [address] [place] [address] 77481ECLMYSdj 82-97-8855Alymei [Catalytic activity/Vol]54 U/LHigh 17-40ProPermian Regional Medical CenterComment on above:Performed By: #### CBCA, CMP, FEPR, 58830-7, TSHR, 2276-4, HA1C, 2283-8, 2131-10 #### [facility] ([id number]) [address] [facility], [address] [place] [address] #### 63064-0 #### [facility] ([id number]) [address] [place] [address] 09881JJYGXPGBCvc 78-79-4659Mhbdpacda [Mass/Vol]2.1 mg/dLNormal 1.8-2.6[facility] HospitalComment on above:Performed By: #### CBCA, CMP, FEPR, 86220-2, TSHR, 2276-4, HA1C, 2284-8, 2132-9 #### [facility] ([id number]) [address] [facility], [address] [place] [address] #### 36305-3 #### [facility] ([id number]) [address] [place] [address] 69748MF BRAIN WO CONTon 97-32-0522EY BRAIN WO CONTMR BRAIN WO CONT HISTORY: A 64-year-old female [...] by Zenon Doss MD on 10/16/2024 2:51 PMNormalProPermian Regional Medical CenterMR MRCP WITH MRI ABD WO CONTon 26-37-9131CF MRCP WITH MRI ABD WO CONTMR MRCP WITH MRI ABD WO CONT MRI [...] in the distal common bile duct (series 4,image 19), however a definitive stone is not seen. The pancreatic duct is not dilated. The gallbladder is distended. There is layering sludge in the gallbladder. No focal liver mass. There is inflammation and fluid adjacent to the pancreas. The kidneys, spleen, and adrenal glands are unremarkable. V isualized small and large bowel are not dilated. No enlarged abdominal lymph nodes. IMPRESSION: * Study compromised by motion artifact. * Dilated common bile duct measuring 1.0 cm with findings suspicious for some sludge in the distal CBD. A definitive stone is not seen in the CBD, however study is significantly compromised by motionartifact (particularly the MRCP images). * Distended gallbladder containing layering sludge. * Extensive peripancreatic inflammation/fluid related to known pancreatitis. Small amount of right perihepatic fluid and fluid in the pelvis as well. * Small right pleural effusion. Finalized by Tommy Michelle MD on 10/16/2024 4:12 PMNormalProPermian Regional Medical CenterOCCULT BLOOD X 1, STOOLon 81-70-7649LJAPC OCCULT BLOODPositiveAbnormal NegativeCleveland Clinic Euclid HospitalComment on above:Performed By: #### CBCA, CMP, FEPR, 46582-1, TSHR, 2276-4, HA1C, 2284-8, 2132-9 #### [facility] ([id number]) [address] [facility], [address] [place] [address] #### 92963-1 #### [facility] ([id number]) [address] [place] [address] 61951FJZEZMFGVEwf 49-34-3912Hrqrtviqw [Mass/Vol]1.6 mg/dLLow2.4-4.9 Pro[facility] Regional Medical CenterComment on above:Performed By: #### CBCA, CMP, FEPR, 11698-4, TSHR, 2276-4, HA1C, 2283-09, 2131-10 #### [facility] ([id number]) [address], [address] [place] [address] #### 04651-8 #### [facility] ([id number]) [address] [place] [address] 76829Isfpopbxd [Mass/Vol]1.6 mg/dLLow2.4-4.9ProPermian Regional Medical CenterComment on above:Performed By: #### CBCA, CMP, FEPR, 85962-1, TSHR, 2276-4, HA1C, 2283-09, 2131-10 #### [facility] ([id number]) [address] [facility], [address] [place] [address] #### 78758-4 #### [facility] ([id number]) [address] [place] [address] 72854AKZTJWQLRaw 39-68-8611Wgwqtfikt [Moles/Vol]3.6 mmol/LNormal 3.5-5.0ProPermian Regional Medical CenterComment on above:Performed By: #### CBCA, CMP, FEPR, 97345-6, TSHR, 2276-4, HA1C, 2283-09, 2131-10 #### [facility] ([id number]) [address], [address] [place] [address] #### 97454-0 #### [facility] ([id number]) [address] [place] [address] 54367Tgxgloaic [Moles/Vol]3.2 mmol/LLow3.5-5.0ProPermian Regional Medical CenterComment on above:Performed By: #### CBCA, CMP, FEPR, 95084-8, TSHR, 2276-4, HA1C, 2283-8, 2131-10 #### [facility] ([id number]) [address] [facility], [address] [place] [address] #### 05721-3 #### [facility] ([id number]) [address] [place] [address] 92594Fwyazquhx [Moles/Vol]3.4 mmol/LLow3.5-5.0ProPermian Regional Medical CenterComment on above:Performed By: #### CBCA, CMP, FEPR, 74967-9, TSHR, 2276-4, HA1C, 2283-09, 2131-10 #### [facility] ([id number]) [address] [facility], [address] [place] [address] #### 61411-8 #### [facility] ([id number]) [address] [place] [address] 03419ZMEX AND SCREENon 01-83-2029WWF_CITGLPGWffcusKbaJbxxpd [facility] HospitalComment on above:Performed By: #### CBCA, CMP, FEPR, 40609-8, TSHR, 2276-4, HA1C, 2283-, 2131-10 #### [facility] ([id number]) [address], [address] [place] [address] #### 11460-0 #### [facility] ([id number]) [address] [place] [address] 43420RH_INTEPPositiveNormalProSelect Medical [facility], [facility] HospitalComment on above:Performed By: #### CBCA, CMP, FEPR, 90801-2, TSHR, 2276-4, HA1C, 4-8, 2131-10 #### [facility] ([id number]) [address], [address] [place] [address] #### 91259-4 #### [facility] ([id number]) [address] [place] [address] 28768AZD WITH AUTO DIFFERENTIALon 98-30-5110QYVQLFQKYNE BASOPHILS ABSOLUTE COUNT (10*3/UL) BY MANUAL COUNT0.0 10*3/uLNormal0.0-0.2[facility] on above:Result Comment: This is an appended report. These results have been appended to a previously preliminary verified report. Performed By: #### CBCA, CMP, FEPR, 12115-7, TSHR, 2276-4, HA1C, 4-8, 2131-10 #### [facility] ([id number]) [address] [facility], [address] [place] [address] #### 84865-8 #### [facility] ([id number]) [address] [place] [address] 48008YULFSLMBBTG BASOPHILS RELATIVE PERCENT BY MANUAL COUNT0 %Normal [facility] on above:Result Comment: This is an appended report. These results have been appended to a previously preliminary verified report.Performed By: #### CBCA, CMP, FEPR, 87131-2, TSHR, 2276-4, HA1C, 4-8, 2131-10 #### [facility] ([id number]) [address], [address] [place] [address] #### 34540-4 #### [facility] ([id number]) [address] [place] [address] 34553YEGSYVOXLCW JASVIR CELLS IN BLOOD BY LIGHT MICROSCOPY2+Normal [facility] on above:Result Comment: This is an appended report. These results have been appended to a previously preliminary verified report.Performed By: #### CBCA, CMP, FEPR, 37221-5, TSHR, 2276-4, HA1C, 2284-8, 9 #### [facility] ([id number]) [address], [address] [place] [address] #### [id number] #### [facility] ([id number]) [address] [place] [address] [id number] DIFFERENTIAL TYPEMANUAL DIFFERENTIALNormalProPermian Regional Medical CenterComment on above:Result Comment: This is an appended report. These results have been appended to a previously preliminary verified report. Performed By: #### CBCA, CMP, FEPR, 14481-8, TSHR, 2276-4, HA1C, 2283-8, 2131-10 #### [facility] ([id number]) [address], [address] [place] [address] #### [id number] #### [facility] ([id number]) [address] [place] [address] [id number] EOSINOPHILS ABSOLUTE COUNT (10*3/UL) BY MANUAL COUNT0.0 10*3/uLNormal0.0-0.4[facility] on above:Result Comment: This is an appended report. These results have been appended to a previously preliminary verified report.Performed By: #### CBCA, CMP, FEPR, 45617-8, TSHR, 2276-4, HA1C, 4-8, 2131-10 #### [facility] ([id number]) [address], [address] [place] [address] #### [id number] #### [facility] ([id number]) [address] [place] [address] [id number] EOSINOPHILS PERCENT BY MANUAL COUNT0 %Normal [facility] on above:Result Comment: This is an appended report. These results have been appended to a previously preliminary verified report.Performed By: #### CBCA, CMP, FEPR, 59416-6, TSHR, 2276-4, HA1C, 2284-8, 2131-9 #### [facility] ([id number]) [address], [address] [place] [address] #### 20446-9 #### [facility] ([id number]) [address] [place] [address] [id number] HYPOCHROMIA IN BLOOD BY LIGHT MICROSCOPY2+Normal [facility] on above:Result Comment: This is an appended report. These results have been appended to a previously preliminary verified report.Performed By: #### CBCA, CMP, FEPR, 63247-1, TSHR, 2276-4, HA1C, 2284-8, 2131-10 #### [facility] ([id number]) [address], [address] [place] [address] #### [id number] #### [facility] ([id number]) [address] [place] [address] [id number] LYMPHOCYTES ABSOLUTE COUNT (10*3/UL) BY MANUAL COUNT1.1 10*3/uLNormal1.0-3.5[facility] on above:Result Comment: This is an appended report. These results have been appended to a previously preliminary verified report.Performed By: #### CBCA, CMP, FEPR, 42541-5, TSHR, 2276-4, HA1C, 2284-8, 9 #### [facility] ([id number]) [address], [address] [place] [address] #### 12944-8 #### [facility] ([id number]) [address] [place] [address] [id number] LYMPHOCYTES RELATIVE PERCENT BY MANUAL COUNT5 % NormalProWadsworth-[facility] Hospitalca [facility] on above:Result Comment: This is an appended report. These results have been appended to a previously preliminary verified report.Performed By: #### CBCA, CMP, FEPR, 82695-4, TSHR, 2276-4, HA1C, 2284-8, 9 #### [facility] ([id number]) [address], [address] [place] [address] #### 50726-4 #### [facility] ([id number]) [address] [place] [address] [id number] MONOCYTES ABSOLUTE COUNT (10*3/UL) IN BLOOD BY MANUAL COUNT0.2 10*3/uLNormal0.0-0.9[facility] on above: Result Comment: This is an appended report. These results have been appended to a previously preliminary verified report.Performed By: #### CBCA, CMP, FEPR, 98328-6, TSHR, 2276-4, HA1C, 2284-8, 2131-10 #### [facility] ([id number]) [address], [address] [place] [address] #### 80641-6 #### [facility] ([id number]) [address] [place] [address] 15712UGMDUCJSUXV MONOCYTES RELATIVE PERCENT BY MANUAL COUNT1 %Normal [facility] on above:Result Comment: This is an appended report. These results have been appended to a previously preliminary verified report.Performed By: #### CBCA, CMP, FEPR, 36346-0, TSHR, 2276-4, HA1C, 2284-8, 9 #### [facility] ([id number]) [address], [address] [place] [address] #### 79783-0 #### [facility] ([id number]) [address] [place] [address] 34488CRACLIMZEDX MYELOCYTE RELATIVE PERCENT BY MANUAL COUNT1 %Normal [facility] on above:Result Comment: This is an appended report. These results have been appended to a previously preliminary verified report.Performed By: #### CBCA, CMP, FEPR, 31042-5, TSHR, 2276-4, HA1C, 2284-8, 2131-9 #### [facility] ([id number]) [address], [address] [place] [address] #### 16754-4 #### [facility] ([id number]) [address] [place] [address] 02485SVNZZTHKEMC NEUTROPHILS ABSOLUTE COUNT BY MANUAL COUNT22.5 10*3/uLHigh1.5-6.6[facility] on above:Result Comment: This is an appended report. These results have been appended to a previously preliminary verified report.Performed By: #### CBCA, CMP, FEPR, 80367-1, TSHR, 2276-4, HA1C, 2284-8, 9 #### [facility] ([id number]) [address], [address] [place] [address] #### 17771-4 #### [facility] ([id number]) [address] [place] [address] 69700ZJQRPSMLCHW NEUTROPHILS RELATIVE PERCENT BY MANUAL COUNT94 % [facility] on above:Result Comment: This is an appended report. These results have been appended to a previously preliminary verified report.Performed By: #### CBCA, CMP, FEPR, 22702-9, TSHR, 2276-4, HA1C, 2284-8, 2131-9 #### [facility] ([id number]) [address], [address] [place] [address] #### 95942-4 #### [facility] ([id number]) [address] [place], [place] [address]UFQLIOCLJLZ NUCLEATED RED BLOOD CELLS IN BLOOD BY LIGHT ISMBXQPWMX8CszdftVadTnyzcw [facility] HospitalComment on above:Result Comment: This is an appended report. These results have been appended to a previously prelimi nary verified report.Performed By: #### CBCA, CMP, FEPR, 04776-1, TSHR, 2276-4, HA1C, 2284-8, 2131-10 #### [facility] ([id number]) [address], [address] [place] [address] #### 79520-7 #### [facility] ([id number]) [address] [place] [address] 28321TINMXPDMWOO TOXIC GRANULES IN BLOOD BY LIGHT MICROSCOPY2+Normal [facility] on above:Result Comment: This is an appended report. These results have been appended to a previously preliminary verified report.Performed By: #### CBCA, CMP, FEPR, 52683-6, TSHR, 2276-4, HA1C, 2283-, 2131-10 #### [facility] ([id number]) [address], [address] [place] [address] #### 31494-0 #### [facility] ([id number]) [address] [place] [address] 65243Yipkmwafkuo distribution width (RBC) [Ratio]16.5 %High11.5-15 [facility] on above:Performed By: #### CBCA, CMP, FEPR, 33659-6, TSHR, 2276-4, HA1C, 2283-, 2131-10 #### [facility] ([id number]) [address], [address] [place] [address] #### 23008-0 #### [facility] ([id number]) [address] [place] [address] 52485Amgutmhptz (Bld) [Volume fraction]22.4 %Hfu90-60SvxRycsftC[facility] Clinic [facility] HospitalComchel[facility] hospital on above:Performed By: #### CBCA, CMP, FEPR, 06768-0, TSHR, 2276-4, HA1C, 2284-8, 2131-10 #### [facility] ([id number]) [address], [address] [place] [address] #### 35852-2 #### [facility] ([id number]) [address] [place] [address] 60146Azzvurpyrq (Bld) [Mass/Vol]7.3 g/dLLow11.7-15.5ProMedica [facility] Medical CenterComment on above:Performed By: #### CBCA, CMP, FEPR, 49193-2, TSHR, 2276-4, HA1C, 2284-8, 2131-10 #### [facility] ([id number]) [address] [address], [address] [place] [address] #### 61396-9 #### [facility] ([id number]) [address] [place] [address] 66640MXW (RBC) [Entitic mass]29.1 ruSqnvhq65-10DwaUhykihPermian Regional Medical CenterComment on above:Performed By: #### CBCA, CMP, FEPR, 84968-6, TSHR, 2276-4, HA1C, 2283-8, 2131-10 #### [facility] ([id number]) [address] [facility], [address] [place] [address] #### 77318-1 #### [facility] ([id number]) [address] [place] [address] 17286FEGF (RBC) [Mass/Vol]32.6 g/dRDwexrd47-42QiyPrttkdPermian Regional Medical CenterComment on above:Performed By: #### CBCA, CMP, FEPR, 54845-0, TSHR, 2276-4, HA1C, 2284-8, 2131-10 #### [facility] ([id number]) [address], [address] [place] [address] #### 28648-9 #### [facility] ([id number]) [address] [place] [address] 76352TNP (RBC) [Entitic vol]89 ePPvhvov01-520IheJhowyh [facility] HospitalComment on above:Performed By: #### CBCA, CMP, FEPR, 26945-5, TSHR, 2276-4, HA1C, 2284-8, 2131-10 #### [facility] ([id number]) [address], [address] [place] [address] #### 36205-7 #### [facility] ([id number]) [address] [place] [address] 72752Tlucunix mean volume (Bld) [Entitic vol]8.4 fLNormal7-12 [facility] Medical CenterComment on above:Performed By: #### CBCA, CMP, FEPR, 24463-2, TSHR, 2276-4, HA1C, 4-8, 2131-10 #### [facility] ([id number]) [address], [address] [place] [address] #### 65039-6 #### [facility] ([id number]) [address] [place] [address] 22852Tkljmbybf (Bld) [#/Vol]156 10*3/uIGacsbs028-537VltUlvmxp [facility] HospitalComment on above:Performed By: #### CBCA, CMP, FEPR, 17486-7, TSHR, 2276-4, HA1C, 2284-8, 2131-10 #### [facility] ([id number]) [address], [address] [place] [address] #### 25320-2 #### [facility] ([id number]) [address] [place] [address] 56816GSF COUNT2.50 X10E12/LLow3.8-5.2PChildren's Hospital of [facility] Comment on above:Performed By: #### CBCA, CMP, FEPR, 61655-7, TSHR, 2276-4, HA1C, 2283-09, 2131-10 #### [facility] ([id number]) [address], [address] [place] [address] #### 15886-8 #### [facility] ([id number]) [address] [place] [address] 21354TKZ (Bld) [#/Vol]23.9 10*3/uLHigh4-11[facility] Comment on above:Performed By: #### CBCA, CMP, FEPR, 06720-8, TSHR, 6-4, HA1C, 2283-09, 2131-10 #### [facility] ([id number]) [address], [address] [place] [address] #### 63519-9 #### [facility] ([id number]) [address] [place] [address] 41554RUNCMTUUMUVJE METABOLIC PANELon 35-53-0930Hdmwzia [Mass/Vol]2.5 g/dLLow3.2-5.3PChildren's Hospital of ColumbusComment on above:Performed By: #### CBCA, CMP, FEPR, 42148-2, TSHR, 2276-4, HA1C, 2283-09, 2131-10 #### [facility] ([id number]) [address], [address] [place] [address] #### 70813-3 #### [facility] ([id number]) [address] [place] [address] 03758KVO [Catalytic activity/Vol]163 U/DNwwq77-287OnfBvdxukPermian Regional Medical CenterComment on above:Performed By: #### CBCA, CMP, FEPR, 94515-2, TSHR, 2276-4, HA1C, 2284-8, 2131-10 #### [facility] ([id number]) [address], [address] [place] [address] #### 68754-1 #### [facility] ([id number]) [address] [place] [address] 66683NDM [Catalytic activity/Vol]892 U/LHigh<=31Pro[facility] Medical CenterComment on above:Performed By: #### CBCA, CMP, FEPR, 82597-5, TSHR, 2276-4, HA1C, 2283-8, 2131-10 #### [facility] ([id number]) [address], [address] [place] [address] #### 73164-1 #### [facility] ([id number]) [address] [place] [address] 67316Zbzmm gap [Moles/Vol]7 mmol/LNormal5-15ProPermian Regional Medical CenterComment on above:Performed By: #### CBCA, CMP, FEPR, 30977-7, TSHR, 2276-4, HA1C, 2283-, 2131-10 #### [facility] ([id number]) [address], [address] [place] [address] #### 30246-2 #### [facility] ([id number]) [address] [place] [address] 41436XTE [Catalytic activity/Vol]108 U/LHigh<=41ProPermian Regional Medical CenterComment on above:Performed By: #### CBCA, CMP, FEPR, 49120-0, TSHR, 2276-4, HA1C, 2283-8, 2131-10 #### [facility] ([id number]) [address], [address] [place] [address] #### 47388-2 #### [facility] ([id number]) [address] [place] [address] 18266Wjepmpblr [Mass/Vol]2.3 mg/dLHigh0.3-1.2PChildren's Hospital of ColumbusComment on above:Performed By: #### CBCA, CMP, FEPR, 33889-6, TSHR, 2276-4, HA1C, 2284-8, 2131-10 #### [facility] ([id number]) [address], [address] [place] [address] #### 11986-6 #### [facility] ([id number]) [address] [place] [address] 81025Acxmckb [Mass/Vol]7.4 mg/dLLow8.5-10.5PChildren's Hospital of ColumbusComment on above:Performed By: #### CBCA, CMP, FEPR, 65809-0, TSHR, 2276-4, HA1C, 2283-, 2131-10 #### [facility] ([id number]) [address], [address] [place] [address] #### 61390-4 #### [facility] ([id number]) [address] [place] [address] 37624Mijnuyjp [Moles/Vol]121 mmol/TPibu17-349ApbMqhpdl [facility] Medical CenterComment on above:Performed By: #### CBCA, CMP, FEPR, 49054-7, TSHR, 2276-4, HA1C, 2283-8, 2131-10 #### [facility] ([id number]) [address] [facility], [address] [place] [address] #### 94735-9 #### [facility] ([id number]) [address] [place] [address] 56067EW8 [Moles/Vol]22 mmol/YBrbkil31-14FubJezifjChildren's Hospital of Columbus Comment on above:Performed By: #### CBCA, CMP, FEPR, 52678-6, TSHR, 2276-4, HA1C, 4-8, 2131-10 #### [facility] ([id number]) [address], [address] [place] [address] #### 27815-7 #### [facility] ([id number]) [address] [place] [address] 98451Hpdkaljgqj [Mass/Vol]0.74 mg/dLNormal0.40-1.00ProPermian Regional Medical CenterComment on above:Result Comment: METHOD TRACEABLE TO IDMS STANDARD Performed By: #### CBCA, CMP, FEPR, 22842-8, TSHR, 2276-4, HA1C, 2283-8, 2131-10 #### [facility] ([id number]) [address], [address] [place] [address] #### 07352-7 #### [facility] ([id number]) [address] [place] [address] 49290SLZE (CKD-EPI) NON-RACE DEPENDENT>^90Normal>=60ProPermian Regional Medical CenterComment on above:Result Comment: eGFR not reported due to non- numeric value for Creatinine. Reported eGFR is based on the CKD-EPI 2021 equation that does not use a race coefficient.Performed By: #### CBCA, CMP, FEPR, 64301-0, TSHR, 2276-4, HA1C, 2283-8, 2131-10 #### [facility] ([id number]) [address] [address] [facility], [address] [place] [address] #### 50690-3 #### [facility] ([id number]) [address] [place] [address] 50764Xsajqhu [Mass/Vol]127 mg/mPYegw44-72SeaRehhokPermian Regional Medical Center Comment on above:Performed By: #### CBCA, CMP, FEPR, 57369-6, TSHR, 2276-4, HA1C, 2284-8, 2131-10 #### [facility] ([id number]) [address], [address] [place] [address] #### 61735-6 #### [facility] ([id number]) [address] [place], [place] [address]Kntwphdag [Moles/Vol]3.4 mmol/LLow3.5-5.0ProPermian Regional Medical CenterComment on above:Performed By: #### CBCA, CMP, FEPR, 47162-2, TSHR, 6-4, HA1C, 2283-09, 2131-10 #### [facility] ([id number]) [address], [address] [place] [address] #### 97486-2 #### [facility] ([id number]) [address] [place] [address] 30868Qzjsrqs [Mass/Vol]5.6 g/dLLow6.0-8.0ProPermian Regional Medical Center Comment on above:Performed By: #### CBCA, CMP, FEPR, 74396-4, TSHR, 6-4, HA1C, 2283-09, 2131-10 #### [facility] ([id number]) [address], [address] [place] [address] #### 09212-9 #### [facility] ([id number]) [address] [place] [address] 41917Vmwzrj [Moles/Vol]150 mmol/UBrbx028-410XfcBgynrjPermian Regional Medical CenterComment on above:Performed By: #### CBCA, CMP, FEPR, 28988-2, TSHR, 2276-4, HA1C, 2283-09, 2131-10 #### [facility] ([id number]) [address], [address] [place] [address] #### 07401-7 #### [facility] ([id number]) [address] [place], [place] [address]Bobh nitrogen [Mass/Vol]21 mg/dLNormal5-27ProPermian Regional Medical CenterComment on above:Performed By: #### CBCA, CMP, FEPR, 52523-9, TSHR, 2276-4, HA1C, 2284-8, 2131-10 #### [facility] ([id number]) [address] [place] [address], [address] [place] [address] #### 52297-6 #### [facility] ([id number]) [address] [place] [address] 62926SEDAZNvc 75-05-2715BHWBF ACID12.7 ng/mLNormal>5.8ProPermian Regional Medical CenterComment on above:Performed By: #### CBCA, CMP, FEPR, 41778-5, TSHR, 2276-4, HA1C, 2283-8, 2131-10 #### [facility] ([id number]) [address] [place] [address], [address] [place] [address] #### 51440-0 #### [facility] ([id number]) [address] [place] [address] 02561WYWYTXD CALCIUMon 30-56-5729CZBTVES CALCIUM - ICAN4.5 mg/dL Normal4.5-5.3ProMedica Downey Regional Medical CenterComment on above:Performed By: #### CBCA, CMP, FEPR, 96750-8, TSHR, 2276-4, HA1C, 2283-8, 2131-10 #### [facility] ([id number]) [address] [place] [address], [address] [place] [address] #### 94816-9 #### [facility] ([id number]) [address] [place] [address] 14007UCUQGSle 69-78-2577Imiofr [Catalytic activity/Vol]71 U/LHigh 17-40ProPermian Regional Medical CenterComment on above:Performed By: #### CBCA, CMP, FEPR, 64599-4, TSHR, 2276-4, HA1C, 2283-09, 2131-10 #### [facility] ([id number]) [address], [address] [place] [address] #### 52923-8 #### [facility] ([id number]) [address] [place] [address] 19809POFGLCFFKlc 57-28-5994Smjnjhzpj [Mass/Vol]2.6 mg/dLNormal 1.8-2.6[facility] HospitalComment on above:Performed By: #### CBCA, CMP, FEPR, 44684-5, TSHR, 6-4, HA1C, 2283-09, 2131-10 #### [facility] ([id number]) [address], [address] [place] [address] #### 44906-4 #### [facility] ([id number]) [address] [place] [address] 41465ZINAGQESYLve 38-87-8708Aleqrhpdj [Mass/Vol]1.2 mg/dLLow2.4-4.9 [facility] HospitalComment on above:Performed By: #### CBCA, CMP, FEPR, 27156-9, TSHR, 6-4, HA1C, 2283-09, 2131-10 #### [facility] ([id number]) [address], [address] [place] [address] #### 30671-6 #### [facility] ([id number]) [address] [place] [address] 23345ZQPAHDeh 37-80-7621Tklpwt [Moles/Vol]149 mmol/GRcbp502-697 [facility] HospitalComment on above:Performed By: #### CBCA, CMP, FEPR, 44271-5, TSHR, 2276-4, HA1C, 2284-8, 2-9 #### [facility] ([id number]) [address] [facility] [address] [address], [address] [place] [address] #### 12082-0 #### [facility] ([id number]) [address] [place] [address] 37300DHODSDQ (VITAMIN B1), WBon 07-78-5170RSPFSMP (VITAMIN B1), WB 270 nmol/PFrwq73-600NiqFdolklPermian Regional Medical CenterComment on above:Result Comment: ADDITIONAL INFORMATION This test was developed and its performance characteristics determined by [facility] in a manner consistent with CLIA requirements. This test has not been cleared or approved by the U.S. Food and Drug Administration. Test Performed by: [facility] [address] [place] [address] Cleaning Matron: Ester Macdonald Ph.D.; CLIA# [id number] By: #### CBCA, CMP, FEPR, 16426-5, TSHR, 2276-4, HA1C, 2284-8, 2131-10 #### [facility] ([id number]) [address] [facility], [address] [place] [address] #### 77239-1 #### [facility] ([id number]) [address] [place] [address] 23901XNZMEFH PROFILE INCLUDES TSH FT4on 43-13-7304Bofm T4 [Mass/Vol] 0.88 ng/dLNormal0.61-1.60ProPermian Regional Medical CenterComment on above:Performed By: #### CBCA, CMP, FEPR, 97164-3, TSHR, 2276-4, HA1C, 2284-8, 2131-9 #### [facility] ([id number]) [address] [facility], [address] [place] [address] #### 08567-1 #### [facility] ([id number]) [address] [place], [place] [address]JLW1.37 uIU/mLNormal0.49-4.67ProPermian Regional Medical CenterComment on above:Performed By: #### CBCA, CMP, FEPR, 37259-9, TSHR, 2276-4, HA1C, 4- 8, 2131-10 #### [facility] ([id number]) [address], [address] [place] [address] #### 40381-2 #### [facility] ([id number]) [address] [place] [address] 88134IQ ABDOMEN LMTDon 68-51-7300UV ABDOMEN LMTDUS ABDOMEN LMTD US ABDOMEN LMTD HISTORY: Pancreatitis [...] Finalized by Bakari Roach on 10/15/2024 11:05 AMNormalCleveland Clinic Euclid Hospital VITAMIN B12on 03-58-5383Kwrquizxc (Vitamin B12) [Mass/Vol]pg/pCHhna106-149 ProMPromise Hospital of East Los AngelesComment on above:Performed By: #### CBCA, CMP, FEPR, 36428-3, TSHR, 2276-4, HA1C, 4-8, 2131-10 #### [facility] ([id number]) [address] [facility], [address] [place] [address] #### 70632-8 #### [facility] ([id number]) [address] [place] [address] 81158DWEYVPSds 47-43-6488Wefrket (P) [Moles/Vol]21 umol/NWcfugc20-15 [facility] HospitalComment on above:Performed By: #### CBCA, CMP, FEPR, 69670-8, TSHR, 2276-4, HA1C, 2283-, 2131-10 #### [facility] ([id number]) [address] [facility], [address] [place] [address] #### 04317-5 #### [facility] ([id number]) [address] [place] [address] 59320ZTD WITH AUTO DIFFERENTIALon 66-99-3018TNXJXIIML ABSOLUTE COUNT (10*3/UL) BY AUTOMATED COUNT0.0 10*3/uLNormal0.0-0.2PChildren's Hospital of [facility] Comment on above:Performed By: #### CBCA, CMP, FEPR, 90514-6, TSHR, 2276-4, HA1C, 2283-, 2131-10 #### [facility] ([id number]) [address] [facility], [address] [place] [address] #### 35168-9 #### [facility] ([id number]) [address] [place] [address] 66453LCUBLTIGN RELATIVE PERCENT BY AUTOMATED COUNT0.1 %Normal [facility] HospitalComment on above:Performed By: #### CBCA, CMP, FEPR, 14267-5, TSHR, 2276-4, HA1C, 2283-09, 2131-10 #### [facility] ([id number]) [address] [facility], [address] [place] [address] #### 67107-5 #### [facility] ([id number]) [address] [place] [address] 60403IBCZIYEVIAU DIFFERENTIAL TYPEAUTOMATED DIFFERENTIALNormal [facility] HospitalComment on above:Performed By: #### CBCA, CMP, FEPR, 84524-9, TSHR, 2276-4, HA1C, 2284-8, 9 #### [facility] ([id number]) [address], [address] [place] [address] #### 71323-3 #### [facility] ([id number]) [address] [place] [address] 17728Yxhkptkwmqq (Bld) [#/Vol]0.0 10*3/uLNormal0.0-0.4ProWadsworth-Rittman Hospitalca [facility] Regional Medical CenterComment on above:Performed By: #### CBCA, CMP, FEPR, 89518-7, TSHR, 2276-4, HA1C, 2283-8, 2131-10 #### [facility] ([id number]) [address] [facility], [address] [place] [address] #### 88287-3 #### [facility] ([id number]) [address] [place] [address] 15023MLGQIDXHIIB RELATIVE PERCENT BY AUTOMATED COUNT0.0 %Normal [facility] HospitalComment on above:Performed By: #### CBCA, CMP, FEPR, 51225-6, TSHR, 2276-4, HA1C, 4-8, 2131-10 #### [facility] ([id number]) [address], [address] [place] [address] #### [id number] #### [facility] ([id number]) [address] [place] [address] 31403Uwflyqfjvoy distribution width (RBC) [Ratio]16.7 %High11.5-15 [facility] HospitalComment on above:Performed By: #### CBCA, CMP, FEPR, 91956-5, TSHR, 2276-4, HA1C, 2283-8, 2131-10 #### [facility] ([id number]) [address], [address] [place] [address] #### 23181-7 #### [facility] ([id number]) [address] [place] [address] 72768Calgdrzbpi (Bld) [Volume fraction]22.8 %Hwi23-57RzmNeaupk Downey Regional Medical CenterComment on above:Performed By: #### CBCA, CMP, FEPR, 34426-6, TSHR, 2276-4, HA1C, 2283-09, 2131-10 #### [facility] ([id number]) [address], [address] [place] [address] #### 37080-1 #### [facility] ([id number]) [address] [place] [address] 39073Cingqlthsc (Bld) [Mass/Vol]7.4 g/dLLow11.7-15.5PChildren's Hospital of ColumbusComment on above:Performed By: #### CBCA, CMP, FEPR, 95091-7, TSHR, 2276-4, HA1C, 2283-09, 2131-10 #### [facility] ([id number]) [address], [address] [place] [address] #### 57977-9 #### [facility] ([id number]) [address] [place] [address] 24094YAXTIUOFWCY ABSOLUTE COUNT (10*3/UL) BY AUTOMATED COUNT0.8 10*3/uLLow1.0-3.5PChildren's Hospital of ColumbusComment on above:Performed By: #### CBCA, CMP, FEPR, 09868-0, TSHR, 2276-4, HA1C, 2283-8, 2131-10 #### [facility] ([id number]) [address], [address] [place] [address] #### 64242-6 #### [facility] ([id number]) [address] [place] [address] 76344WACAHMYUVXF RELATIVE PERCENT BY AUTOMATED COUNT4.1 %Normal [facility] Medical CenterComment on above:Performed By: #### CBCA, CMP, FEPR, 04802-8, TSHR, 2276-4, HA1C, 2284-8, 2131-10 #### [facility] ([id number]) [address], [address] [place] [address] #### 93964-9 #### [facility] ([id number]) [address] [place] [address] 64043WPZ (RBC) [Entitic mass]28.9 vgFcrpry46-05SoiZhgeybPermian Regional Medical CenterComment on above:Performed By: #### CBCA, CMP, FEPR, 64873-8, TSHR, 2276-4, HA1C, 2283-, 2131-10 #### [facility] ([id number]) [address], [address] [place] [address] #### 10571-9 #### [facility] ([id number]) [address] [place] [address] 85864FFGA (RBC) [Mass/Vol]32.6 g/mPIvhxib61-44IhaCkuwggPermian Regional Medical CenterComment on above:Performed By: #### CBCA, CMP, FEPR, 31372-8, TSHR, 2276-4, HA1C, 4-8, 2131-10 #### [facility] ([id number]) [address], [address] [place] [address] #### 15380-2 #### [facility] ([id number]) [address] [place] [address] 16714ITS (RBC) [Entitic vol]89 iITmmgpv35-225HujWuhybu Fremont HospitalComment on above:Performed By: #### CBCA, CMP, FEPR, 24963-4, TSHR, 2276-4, HA1C, 2284-8, 2131-10 #### [facility] ([id number]) [address], [address] [place] [address] #### 12038-9 #### [facility] ([id number]) [address] [place] [address] 90982HOTAUSDDB ABSOLUTE COUNT (10*3/UL) BY AUTOMATED COUNT0.7 10*3/uLNormal0.0-0.9ProPermian Regional Medical CenterComment on above:Performed By: #### CBCA, CMP, FEPR, 89913-7, TSHR, 2276-4, HA1C, 2283-, 2131-10 #### [facility] ([id number]) [address], [address] [place] [address] #### 26813-1 #### [facility] ([id number]) [address] [place] [address] 32560HJZCGOBVZ RELATIVE PERCENT BY AUTOMATED COUNT3.3 %Normal ProMPromise Hospital of East Los AngelesComment on above:Performed By: #### CBCA, CMP, FEPR, 20827-3, TSHR, 2276-4, HA1C, 2283-, 2131-10 #### [facility] ([id number]) [address] [facility], [address] [place] [address] #### 24173-8 #### [facility] ([id number]) [address] [place] [address] 96105HNUZGABDBUJ ABSOLUTE COUNT BY AUTOMATED COUNT19.4 10*3/uLHigh 1.5-6.6ProPermian Regional Medical CenterComment on above:Performed By: #### CBCA, CMP, FEPR, 95595-9, TSHR, 2276-4, HA1C, 2284-8, 2131-10 #### [facility] ([id number]) [address], [address] [place] [address] #### 33326-7 #### [facility] ([id number]) [address] [place] [address] 77080SWULGWBTAYJ RELATIVE PERCENT BY AUTOMATED COUNT92.5 %Normal [facility] HospitalComment on above:Performed By: #### CBCA, CMP, FEPR, 72026-6, TSHR, 2276-4, HA1C, 4-8, 2131-10 #### [facility] ([id number]) [address], [address] [place] [address] #### 52418-4 #### [facility] ([id number]) [address] [place] [address] 34023Pitrvjjw mean volume (Bld) [Entitic vol]8.1 fLNormal7-12 [facility] HospitalComment on above:Performed By: #### CBCA, CMP, FEPR, 39505-9, TSHR, 2276-4, HA1C, 2283-8, 2131-10 #### [facility] ([id number]) [address], [address] [place] [address] #### 22490-0 #### [facility] ([id number]) [address] [place] [address] 65449Pvdpiiwkj (Bld) [#/Vol]148 10*3/cTZkk637-827BgqLshtmf [facility] CenterComment on above:Performed By: #### CBCA, CMP, FEPR, 60308-2, TSHR, 2276-4, HA1C, 4-8, 2131-10 #### [facility] ([id number]) [address], [address] [place] [address] #### 44078-5 #### [facility] ([id number]) [address] [place] [address] 33053SKG COUNT2.58 X10E12/LLow3.8-5.2PChildren[facility] Comment on above:Performed By: #### CBCA, CMP, FEPR, 95672-4, TSHR, 2276-4, HA1C, 2284-8, 2131-10 #### [facility] ([id number]) [address] [place] [address], [address] [place] [address] #### 50500-8 #### [facility] ([id number]) [address] [place] [address] 01200CKD (Bld) [#/Vol]20.9 10*3/uLHigh4-11[facility] Comment on above:Performed By: #### CBCA, CMP, FEPR, 08122-6, TSHR, 2276-4, HA1C, 2283-, 2131-10 #### [facility] ([id number]) [address] [place] [address], [address] [place] [address] #### 63384-4 #### [facility] ([id number]) [address] [place] [address] 33584DKETQAGLSCFVK METABOLIC PANELon 36-60-7980Tgdzebz [Mass/Vol]2.1 g/dLLow3.2-5.3PChildren's Hospital of ColumbusComment on above:Performed By: #### CBCA, CMP, FEPR, 59747-2, TSHR, 2276-4, HA1C, 2283-8, 2131-10 #### [facility] ([id number]) [address] [place] [address], [address] [place] [address] #### 91258-1 #### [facility] ([id number]) [address] [place] [address] 15691YVK [Catalytic activity/Vol]158 U/DSqcn63-035YwiJazzhpPermian Regional Medical CenterComment on above:Performed By: #### CBCA, CMP, FEPR, 76783-0, TSHR, 2276-4, HA1C, 2283-8, 2131-10 #### [facility] ([id number]) [address], [address] [place] [address] #### 02616-0 #### [facility] ([id number]) [address] [place] [address] 78346ANI [Catalytic activity/Vol]1145 U/LHigh<=31ProMedJohn F. Kennedy Memorial HospitalComment on above:Performed By: #### CBCA, CMP, FEPR, 86829-9, TSHR, 2276-4, HA1C, 2283-09, 2131-10 #### [facility] ([id number]) [address] [facility], [address] [place] [address] #### 22157-8 #### [facility] ([id number]) [address] [place] [address] 04256Eqvwj gap [Moles/Vol]1 mmol/LLow5-15[facility] Comment on above:Performed By: #### CBCA, CMP, FEPR, 44750-8, TSHR, 2276-4, HA1C, 2283-, 2131-10 #### [facility] ([id number]) [address], [address] [place] [address] #### 18113-7 #### [facility] ([id number]) [address] [place] [address] 24451ZKV [Catalytic activity/Vol]173 U/LHigh<=41ProPermian Regional Medical CenterComment on above:Performed By: #### CBCA, CMP, FEPR, 87965-5, TSHR, 2276-4, HA1C, 2283-8, 2131-10 #### [facility] ([id number]) [address], [address] [place] [address] #### 02936-8 #### [facility] ([id number]) [address] [place] [address] 71194Swnknwgma [Mass/Vol]2.3 mg/dLHigh0.3-1.2PChildren's Hospital of ColumbusComment on above:Performed By: #### CBCA, CMP, FEPR, 17327-8, TSHR, 2276-4, HA1C, 2283-8, 2131-10 #### [facility] ([id number]) [address] [facility], [address] [place] [address] #### 11227-5 #### [facility] ([id number]) [address] [place] [address] 25496Mvvwucw [Mass/Vol]6.8 mg/dLCritically low8.5-10.5PChildren's Hospital of ColumbusComment on above:Performed By: #### CBCA, CMP, FEPR, 29984-9, TSHR, 2276-4, HA1C, 2283-09, 2131-10 #### [facility] ([id number]) [address] [facility], [address] [place] [address] #### 35808-3 #### [facility] ([id number]) [address] [place] [address] 90375Fdzzzzyc [Moles/Vol]127 mmol/LCritically arji63-933FfbKxynax [facility] CenterComment on above:Performed By: #### CBCA, CMP, FEPR, 29305-6, TSHR, 2276-4, HA1C, 2283-, 2131-10 #### [facility] ([id number]) [address] [facility], [address] [place] [address] #### 65032-3 #### [facility] ([id number]) [address] [place] [address] 30648DS8 [Moles/Vol]19 mmol/RTsy06-57NykSbnbhsChildren's Hospital of Columbus Comment on above:Performed By: #### CBCA, CMP, FEPR, 65834-8, TSHR, 2276-4, HA1C, 4-8, 2131-10 #### [facility] ([id number]) [address], [address] [place] [address] #### 45649-2 #### [facility] ([id number]) [address] [place] [address] 96513Uvupwsjuxi [Mass/Vol]0.72 mg/dLNormal0.40-1.00[facility] HospitalComment on above:Result Comment: METHOD TRACEABLE TO IDMS STANDARD Performed By: #### CBCA, CMP, FEPR, 43741-1, TSHR, 2276-4, HA1C, 2283-, 2131-10 #### [facility] ([id number]) [address], [address] [place] [address] #### 72551-8 #### [facility] ([id number]) [address] [place] [address] 87580CBGZ (CKD-EPI) NON-RACE DEPENDENT>^90Normal>=60[facility] HospitalComment on above:Result Comment: Reported eGFR is based on the CKD-EPI 2020 equation that does not use a race coefficient.Performed By: #### CBCA, CMP, FEPR, 88100-5, TSHR, 2276-4, HA1C, 2283-8, 2131-10 #### [facility] ([id number]) [address], [address] [place] [address] #### 48344-4 #### [facility] ([id number]) [address] [place], [place] [address]Vcxfmjp [Mass/Vol]96 mg/yYQpvibe56-51UnpFubxvkCleveland Clinic Euclid Hospital Comment on above:Performed By: #### CBCA, CMP, FEPR, 40466-3, TSHR, 2276-4, HA1C, 2283-09, 2131-10 #### [facility] ([id number]) [address], [address] [place] [address] #### 87692-2 #### [facility] ([id number]) [address] [place], [place] [address]Cgptpvbry [Moles/Vol]3.5 mmol/LNormal3.5-5.0ProPermian Regional Medical CenterComment on above:Performed By: #### CBCA, CMP, FEPR, 62022-2, TSHR, 2276-4, HA1C, 2283-09, 2131-10 #### [facility] ([id number]) [address] [facility], [address] [place] [address] #### 82542-9 #### [facility] ([id number]) [address] [place] [address] 88883Tcrndbt [Mass/Vol]4.9 g/dLLow6.0-8.0[facility] Comment on above:Performed By: #### CBCA, CMP, FEPR, 41571-1, TSHR, 2276-4, HA1C, 2283-09, 2131-10 #### [facility] ([id number]) [address], [address] [place] [address] #### 40239-0 #### [facility] ([id number]) [address] [place] [address] 68961Aexbiq [Moles/Vol]147 mmol/YCawh507-652JfvUgvmjhPermian Regional Medical CenterComment on above:Performed By: #### CBCA, CMP, FEPR, 33903-0, TSHR, 2276-4, HA1C, 2283-09, 2131-10 #### [facility] ([id number]) [facility], [address] [place] [address] #### 95930-9 #### [facility] ([id number]) [address] [place] [address] 54623Zyno nitrogen [Mass/Vol]29 mg/dLHigh5-27ProPermian Regional Medical CenterComment on above:Performed By: #### CBCA, CMP, FEPR, 33603-6, TSHR, 2276-4, HA1C, 2284-8, 9 #### [facility] ([id number]) [address] [place] [address], [facility] [address] [place] [address] #### 33885-4 #### [facility] ([id number]) [address] [place] [address] 29091MOPRKQRIbp 91-22-2861Iaqdzwmf [Mass/Vol]167 ng/iKLylzrn96-461 ProMPromise Hospital of East Los AngelesComment on above:Performed By: #### CBCA, CMP, FEPR, 11795-5, TSHR, 2276-4, HA1C, 2283-8, 2131-10 #### [facility] ([id number]) [address] [place] [address] #### 13500-9 #### [facility] ([id number]) [address] [place] [address] 06321EAIYQDTQS PANEL, ACUTEon 61-65-0144RIRM HCV W/PCR REFLX Hho-JuhxolxpAfzygdMyh-KwufaidrUytKonifw [facility] HospitalComment on above:Result Comment: If recent infection suspected, recommend repeat testing (>2 months). Vgxznz-ml-avcjar ratio is <1.0.Performed By: #### CBCA, CMP, FEPR, 38646-5, TSHR, 2276-4, HA1C, 2284-8, 9 #### [facility] ([id number]) [address] [place] [address], [address] [place] [address] #### 11621-1 #### [facility] ([id number]) [address] [place] [address] 30293WCWLFKODT A HVSQvz-JjbfqchiQhmojcMzc-IjbycrhtMzbOiyxck [facility] HospitalComment on above:Performed By: #### CBCA, CMP, FEPR, 87926-6, TSHR, 2276-4, HA1C, 2284-8, 2131-9 #### [facility] ([id number]) [address] [facility], [address] [place] [address] #### 19260-4 #### [facility] ([id number]) [address] [place] [address] 57918KRYVPPFGU B CORE WTGZaj-WrliqotxDfvytkTaf-AvsjqensBagYamgwt [facility] HospitalComment on above:Performed By: #### CBCA, CMP, FEPR, 91116-0, TSHR, 2276-4, HA1C, 2284-8, 9 #### [facility] ([id number]) [address] [facility], [address] [place] [address] #### 78827-1 #### [facility] ([id number]) [address] [place] [address] 10335PIXIRHPZJ B SURF DBXai-VtfhfmmdGbilavUlk-EqpgiufzIcaYichac [facility] HospitalComment on above:Performed By: #### CBCA, CMP, FEPR, 97702-9, TSHR, 2276-4, HA1C, 2284-8, 9 #### [facility] ([id number]) [address] [facility], [address] [place] [address] #### 97487-2 #### [facility] ([id number]) [address] [place] [address] 78360CTSPAMV CALCIUMon 97-69-9745WJEEDNI CALCIUMICA IONIZED CALCIUM CancelledNormalProWadsworth-Rittman Hospitalca [facility] Medical CenterIRON AND TIBCon 72-81-3657Cwaf [Mass/Vol]282 ug/lSMtdj33-067RwtGcsdwnPermian Regional Medical CenterComment on above: Performed By: #### CBCA, CMP, FEPR, 95366-5, TSHR, 2276-4, HA1C, 2283-09, 2131-10 #### [facility] ([id number]) [address] [facility], [address] [place] [address] #### 10342-2 #### [facility] ([id number]) [address] [place] [address] 95922LTLC AAIJRDQ250 ug/lZPmn509-173SkoHzhafwCleveland Clinic [facility]ucl[facility] Hospital Comment on above:Performed By: #### CBCA, CMP, FEPR, 34137-6, TSHR, 2276-4, HA1C, 2283-09, 2131-10 #### [facility] ([id number]) [address] [facility], [address] [place] [address] #### 45591-5 #### [facility] ([id number]) [address] [place] [address] 62565FJEF DPZDRLVOXL131 % OEOWBUUJVQAveb27-20LlqEhoauw [facility] HospitalComment on above:Performed By: #### CBCA, CMP, FEPR, 86370-5, TSHR, 2276-4, HA1C, 2283-09, 2131-10 #### [facility] ([id number]) [address] [facility], [address] [place] [address] #### 19306-9 #### [facility] ([id number]) [address] [place] [address] 05428Joblgppkujc [Mass/Vol]175 mg/vWTmidcp706-377BaeLniqxd [facility] HospitalComment on above:Performed By: #### CBCA, CMP, FEPR, 99841-5, TSHR, 2276-4, HA1C, 2283-09, 2131-10 #### [facility] ([id number]) [address] [place] [address], [address] [place] [address] #### 39105-0 #### [facility] ([id number]) [address] [place] [address] 25649BDPFCTmz 02-67-9976Hfmpja [Catalytic activity/Vol]120 U/LHigh 17-40ProPermian Regional Medical CenterComment on above:Performed By: #### CBCA, CMP, FEPR, 25011-5, TSHR, 2276-4, HA1C, 2283-8, 2131-10 #### [facility] ([id number]) [address] [place] [address], [address] [address] #### 27050-3 #### [facility] ([id number]) [address] [place] [address] 34646HLFRGEIJGsb 69-11-6608Nvazlgzpr [Mass/Vol]2.4 mg/dLNormal 1.8-2.6ProPermian Regional Medical CenterComment on above:Performed By: #### CBCA, CMP, FEPR, 28904-9, TSHR, 2276-4, HA1C, 2283-, 2131-10 #### [facility] ([id number]) [address] [place] [address] #### 92038-9 #### [facility] ([id number]) [address] [place] [address] 27312KCPQFTXBYGiq 11-54-1559Ccaihrkap [Mass/Vol]1.8 mg/dLLow2.4-4.9 [facility] Medical CenterComment on above:Performed By: #### CBCA, CMP, FEPR, 41108-1, TSHR, 2276-4, HA1C, 2283-09, 2131-10 #### [facility] ([id number]) [address] [place] [address], [address] [place] [address] #### 19679-0 #### [facility] ([id number]) [address] [place] [address] 49461RDLZ IONIZED CALCIUMon 74-63-0192PMIJHUDN ICA4.2 mg/dLLow 4.5-5.3PChildren's Hospital of ColumbusComment on above:Performed By: #### CBCA, CMP, FEPR, 06129-3, TSHR, 2276-4, HA1C, 2283-8, 2131-10 #### [facility] ([id number]) [address] [place] [address], [address] [place] [address] #### 01985-1 #### [facility] ([id number]) [address] [place] [address] 37485NNX WITH AUTO DIFFERENTIALon 04-77-5653FWIDZCYHY ABSOLUTE COUNT (10*3/UL) BY AUTOMATED COUNT0.0 10*3/uLNormal0.0-0.2P[facility] Comment on above:Performed By: #### CBCA, CMP, FEPR, 24808-6, TSHR, 2276-4, HA1C, 2283-, 2131-10 #### [facility] ([id number]) [address] [place] [address], [address] [place] [address] #### 12637-3 #### [facility] ([id number]) [address] [place] [address] 75573KCYIAUHFD RELATIVE PERCENT BY AUTOMATED COUNT0.2 %Normal [facility] Medical CenterComment on above:Performed By: #### CBCA, CMP, FEPR, 89230-5, TSHR, 2276-4, HA1C, 2283-, 2131-10 #### [facility] ([id number]) [address] [place] [address], [address] [place] [address] #### 93971-6 #### [facility] ([id number]) [address] [place] [address] 41046PCGSZWIQOXD DIFFERENTIAL TYPEAUTOMATED DIFFERENTIALNormal [facility] HospitalComment on above:Performed By: #### CBCA, CMP, FEPR, 26191-2, TSHR, 2276-4, HA1C, 2283-09, 2131-10 #### [facility] ([id number]) [address], [address] [place] [address] #### 04847-4 #### [facility] ([id number]) [address] [place] [address] 55269Hfuwlzrawel (Bld) [#/Vol]0.0 10*3/uLNormal0.0-0.4ProWadsworth-Rittman Hospitalca [facility] Medical CenterComment on above:Performed By: #### CBCA, CMP, FEPR, 18070-8, TSHR, 2276-4, HA1C, 2283-09, 2131-10 #### [facility] ([id number]) [address] [facility], [address] [place] [address] #### 72049-6 #### [facility] ([id number]) [address] [place] [address] 81901OCCFBDSUDFN RELATIVE PERCENT BY AUTOMATED COUNT0.0 %Normal [facility] HospitalComment on above:Performed By: #### CBCA, CMP, FEPR, 12656-9, TSHR, 2276-4, HA1C, 2283-09, 2131-10 #### [facility] ([id number]) [address], [address] [place] [address] #### 26256-0 #### [facility] ([id number]) [address] [place] [address] 57208Rmlthnohzve distribution width (RBC) [Ratio]16.3 %High11.5-15 [facility] HospitalComment on above:Performed By: #### CBCA, CMP, FEPR, 88532-2, TSHR, 2276-4, HA1C, 2283-09, 2131-10 #### [facility] ([id number]) [address], [address] [place] [address] #### 04392-5 #### [facility] ([id number]) [address] [place] [address] 62414Ainvmbdszo (Bld) [Volume fraction]31.6 %Epj92-57UuzFhinpd [facility] Medical CenterComment on above:Performed By: #### CBCA, CMP, FEPR, 86125-6, TSHR, 2276-4, HA1C, 2283-, 2131-10 #### [facility] ([id number]) [address], [address] [place] [address] #### 93174-4 #### [facility] ([id number]) [address] [place] [address] 57920Pbvruetque (Bld) [Mass/Vol]10.6 g/dLLow11.7-15.5PChildren's Hospital of ColumbusComment on above:Performed By: #### CBCA, CMP, FEPR, 86450-8, TSHR, 2276-4, HA1C, 2283-09, 2131-10 #### [facility] ([id number]) [address], [address] [place] [address] #### 80070-9 #### [facility] ([id number]) [address] [place] [address] 38859NYIKZIYIOJN ABSOLUTE COUNT (10*3/UL) BY AUTOMATED COUNT1.2 10*3/uLNormal1.0-3.5PChildren's Hospital of ColumbusComment on above:Performed By: #### CBCA, CMP, FEPR, 98736-1, TSHR, 2276-4, HA1C, 2283-, 2131-10 #### [facility] ([id number]) [address], [address] [place] [address] #### 63685-4 #### [facility] ([id number]) [address] [place] [address] 63198HPDSUIJFQTS RELATIVE PERCENT BY AUTOMATED COUNT7.4 %Normal [facility] Medical CenterComment on above:Performed By: #### CBCA, CMP, FEPR, 21414-2, TSHR, 2276-4, HA1C, 4-8, 2131-10 #### [facility] ([id number]) [address], [address] [place] [address] #### 91408-3 #### [facility] ([id number]) [address] [place] [address] 09178DFR (RBC) [Entitic mass]29.5 lhZvhnbo63-61QfaKraxhdPermian Regional Medical CenterComment on above:Performed By: #### CBCA, CMP, FEPR, 29766-0, TSHR, 2276-4, HA1C, 2283-, 2131-10 #### [facility] ([id number]) [address], [address] [place] [address] #### 38916-3 #### [facility] ([id number]) [address] [place] [address] 87859QYSB (RBC) [Mass/Vol]33.6 g/vYEomllr91-42QfmVosbmiPermian Regional Medical CenterComment on above:Performed By: #### CBCA, CMP, FEPR, 19666-9, TSHR, 2276-4, HA1C, 2283-8, 2131-10 #### [facility] ([id number]) [address], [address] [place] [address] #### 86436-4 #### [facility] ([id number]) [address] [place] [address] 38613RXR (RBC) [Entitic vol]88 cPZbuazf80-412XoqDauszu [facility] HospitalComment on above:Performed By: #### CBCA, CMP, FEPR, 48608-2, TSHR, 2276-4, HA1C, 2283-, 2131-10 #### [facility] ([id number]) [address], [address] [place] [address] #### 51452-0 #### [facility] ([id number]) [address] [place] [address] [id number] ABSOLUTE COUNT (10*3/UL) BY AUTOMATED COUNT1.0 10*3/uLHigh0.0-0.9[facility] HospitalComment on above:Performed By: #### CBCA, CMP, FEPR, 06763-2, TSHR, 2276-4, HA1C, 2283-09, 2131-10 #### [facility] ([id number]) [address], [address] [place] [address] #### 77999-4 #### [facility] ([id number]) [address] [place] [address] 62828PKGKHRVRG RELATIVE PERCENT BY AUTOMATED COUNT6.2 %Normal [facility] HospitalComment on above:Performed By: #### CBCA, CMP, FEPR, 50946-0, TSHR, 2276-4, HA1C, 2283-09, 2131-10 #### [facility] ([id number]) [address], [address] [place] [address] #### 52096-5 #### [facility] ([id number]) [address] [place] [address] [id number] ABSOLUTE COUNT BY AUTOMATED COUNT13.4 10*3/uLHigh 1.5-6.6ProPermian Regional Medical CenterComment on above:Performed By: #### CBCA, CMP, FEPR, 07250-1, TSHR, 2276-4, HA1C, 2283-, 2131-10 #### [facility] ([id number]) [address], [address] [place] [address] #### 05688-3 #### [facility] ([id number]) [address] [place] [address] [id number] RELATIVE PERCENT BY AUTOMATED COUNT86.2 %Normal [facility] HospitalComment on above:Performed By: #### CBCA, CMP, FEPR, 20283-2, TSHR, 2276-4, HA1C, 2283-8, 2131-10 #### [facility] ([id number]) [address], [address] [place] [address] #### 41744-1 #### [facility] ([id number]) [address] [place] [address] 15183Fjulxulh mean volume (Bld) [Entitic vol]8.0 fLNormal7-12 [facility] HospitalComment on above:Performed By: #### CBCA, CMP, FEPR, 06569-7, TSHR, 2276-4, HA1C, 2283-, 2131-10 #### [facility] ([id number]) [address], [address] [place] [address] #### 29391-2 #### [facility] ([id number]) [address] [place] [address] 89261Swjqdpxln (Bld) [#/Vol]195 10*3/qITonfmj317-881QmrRnazqs [facility] Medical CenterComment on above:Performed By: #### CBCA, CMP, FEPR, 36184-8, TSHR, 2276-4, HA1C, 2283-09, 2131-10 #### [facility] ([id number]) [address], [address] [place] [address] #### 92714-7 #### [facility] ([id number]) [address] [place] [address] 32758ELO COUNT3.60 X10E12/LLow3.8-5.2PChildren's Hospital of [facility] Comment on above:Performed By: #### CBCA, CMP, FEPR, 95330-2, TSHR, 2276-4, HA1C, 2284-8, 2131-10 #### [facility] ([id number]) [address], [address] [place] [address] #### 70512-7 #### [facility] ([id number]) [address] [place] [address] 97364YQU (Bld) [#/Vol]15.6 10*3/uLHigh4-11[facility] Comment on above:Performed By: #### CBCA, CMP, FEPR, 58945-3, TSHR, 2276-4, HA1C, 2283-8, 2131-10 #### [facility] ([id number]) [address], [address] [place] [address] #### 67937-9 #### [facility] ([id number]) [address] [place] [address] 47276HJEDVVJMYGIZO METABOLIC PANELon 26-09-9055Lttwozo [Mass/Vol]2.6 g/dLLow3.2-5.3PChildren's Hospital of ColumbusComment on above:Performed By: #### CBCA, CMP, FEPR, 31363-8, TSHR, 2276-4, HA1C, 2283-8, 2131-10 #### [facility] ([id number]) [address], [address] [place] [address] #### 45381-4 #### [facility] ([id number]) [address] [place] [address] 42457ADK [Catalytic activity/Vol]233 U/OMpwq70-238PfqAwglerPermian Regional Medical CenterComment on above:Performed By: #### CBCA, CMP, FEPR, 25624-9, TSHR, 2276-4, HA1C, 2284-8, 2131-10 #### [facility] ([id number]) [address], [address] [place] [address] #### 66390-5 #### [facility] ([id number]) [address] [place] [address] 59137IOX [Catalytic activity/Vol]2000 U/LHigh<=31Pro[facility] Medical CenterComment on above:Performed By: #### CBCA, CMP, FEPR, 86766-8, TSHR, 2276-4, HA1C, 2283-8, 2131-10 #### [facility] ([id number]) [address], [address] [place] [address] #### 52852-4 #### [facility] ([id number]) [address] [place] [address] 37238Lzrpx gap [Moles/Vol]6 mmol/LNormal5-15ProPermian Regional Medical CenterComment on above:Performed By: #### CBCA, CMP, FEPR, 19639-3, TSHR, 2276-4, HA1C, 2283-8, 2131-10 #### [facility] ([id number]) [address], [address] [place] [place] [address] #### 03505-3 #### [facility] ([id number]) [address] [place] [address] 96564QED [Catalytic activity/Vol]570 U/LHigh<=41ProPermian Regional Medical CenterComment on above:Performed By: #### CBCA, CMP, FEPR, 28510-8, TSHR, 2276-4, HA1C, 2283-8, 2131-10 #### [facility] ([id number]) [address] [facility], [address] [place] [address] #### 24046-8 #### [facility] ([id number]) [address] [place] [address] 86026Gnxynerko [Mass/Vol]2.6 mg/dLHigh0.3-1.2PChildren's Hospital of ColumbusComment on above:Performed By: #### CBCA, CMP, FEPR, 63054-0, TSHR, 2276-4, HA1C, 2284-8, 2131-10 #### [facility] ([id number]) [address], [address] [place] [address] #### 26280-5 #### [facility] ([id number]) [address] [place] [address] 13317Vlgqhuc [Mass/Vol]6.2 mg/dLCritically low8.5-10.5PChildren's Hospital of ColumbusComment on above:Performed By: #### CBCA, CMP, FEPR, 29408-8, TSHR, 2276-4, HA1C, 2283-8, 2131-10 #### [facility] ([id number]) [address], [address] [place] [address] #### 36580-6 #### [facility] ([id number]) [address] [place] [address] 95386Muuhzgiu [Moles/Vol]118 mmol/OAzla63-969OepKyvukg [facility] Medical CenterComment on above:Performed By: #### CBCA, CMP, FEPR, 44983-9, TSHR, 2276-4, HA1C, 4-8, 2131-10 #### [facility] ([id number]) [address], [address] [place] [address] #### 11423-1 #### [facility] ([id number]) [address] [place] [address] 16138RR3 [Moles/Vol]18 mmol/IJha56-91XxkRavcadChildren's Hospital of Columbus Comment on above:Performed By: #### CBCA, CMP, FEPR, 21107-0, TSHR, 2276-4, HA1C, 2283-8, 2131-10 #### [facility] ([id number]) [address] [facility], [address] [place] [address] #### 22621-5 #### [facility] ([id number]) [address] [place], [place] [address]Vanjkjogop [Mass/Vol]1.26 mg/dLHigh0.40-1.00C[facility] Euclid HospitalComment on above:Result Comment: METHOD TRACEABLE TO IDMS STANDARD Performed By: #### CBCA, CMP, FEPR, 05668-8, TSHR, 2276-4, HA1C, 2283-, 2131-10 #### [facility] ([id number]) [address] [facility], [address] [place] [address] #### 42861-8 #### [facility] ([id number]) [address] [place] [address] 84892VMG/1.73 sq M.predicted among non-blacks MDRD (S/P/Bld) [Vol rate/Area]48 mL/min/{1.73_m2}Low>=60C[facility] Euclid HospitalComment on above: Result Comment: Reported eGFR is based on the CKD-EPI 2020 equation that does not use a race coefficient.Performed By: #### CBCA, CMP, FEPR, 06466-5, TSHR, 2276-4, HA1C, 2283-8, 2131-10 #### [facility] ([id number]) [address] [facility], [address] [place] [address] #### 90176-6 #### [facility] ([id number]) [address] [place], [place] [address]Ujtkxml [Mass/Vol]108 mg/cTIezw26-84FklDuwvtbCleveland Clinic Euclid Hospital Comment on above:Performed By: #### CBCA, CMP, FEPR, 86021-8, TSHR, 2276-4, HA1C, 2283-, 2131-10 #### [facility] ([id number]) [address], [address] [place] [address] #### 16939-1 #### [facility] ([id number]) [address] [place], [place] [address]Ppivqdoje [Moles/Vol]3.8 mmol/LNormal3.5-5.0ProPermian Regional Medical CenterComment on above:Performed By: #### CBCA, CMP, FEPR, 20952-7, TSHR, 2276-4, HA1C, 2283-09, 2131-10 #### [facility] ([id number]) [address], [address] [place] [address] #### 96680-8 #### [facility] ([id number]) [address] [place] [address] 51498Tyrhxbg [Mass/Vol]5.6 g/dLLow6.0-8.0[facility] Comment on above:Performed By: #### CBCA, CMP, FEPR, 14216-2, TSHR, 2276-4, HA1C, 2283-09, 2131-10 #### [facility] ([id number]) [address], [address] [place] [address] #### 03890-0 #### [facility] ([id number]) [address] [place] [address] 91746Nfpgwf [Moles/Vol]142 mmol/HUcbozv669-700XqrDmfivy Fremont HospitalComment on above:Performed By: #### CBCA, CMP, FEPR, 09215-8, TSHR, 2276-4, HA1C, 2283-, 2131-10 #### [facility] ([id number]) [address], [address] [place] [address] #### 79509-7 #### [facility] ([id number]) [address] [place] [address] 01621Qetb nitrogen [Mass/Vol]41 mg/dLHigh5-27ProPermian Regional Medical CenterComment on above:Performed By: #### CBCA, CMP, FEPR, 49602-5, TSHR, 2276-4, HA1C, 2283-09, 2131-10 #### [facility] ([id number]) [address], [address] [place] [address] #### 57058-9 #### [facility] ([id number]) [address] [place] [address] 61958IRCGVYG CALCIUMon 37-85-3986ARPDUAO CALCIUMICA IONIZED CALCIUM CancelledNormalProPermian Regional Medical CenterIONIZED CALCIUM - ICAN3.7 mg/dLLow 4.5-5.3ProMedica Downey Regional Medical CenterComment on above:Performed By: #### CBCA, CMP, FEPR, 02855-8, TSHR, 2276-4, HA1C, 2283-09, 2131-10 #### [facility] ([id number]) [address], [address] [place] [address] #### 88242-3 #### [facility] ([id number]) [address] [place] [address] 21710HUWYLSny 28-31-3871Bgbybr [Catalytic activity/Vol]508 U/LHigh 17-40ProPermian Regional Medical CenterComment on above:Performed By: #### CBCA, CMP, FEPR, 07205-1, TSHR, 2276-4, HA1C, 2283-, 2131-10 #### [facility] ([id number]) [address], [address] [place] [address] #### 19696-6 #### [facility] ([id number]) [address] [place] [address] 30127QKKLORFRQec 94-64-1235Adailwaak [Mass/Vol]2.3 mg/dLNormal 1.8-2.6ProMedica Downey Regional Medical CenterComment on above:Performed By: #### CBCA, CMP, FEPR, 04233-6, TSHR, 2276-4, HA1C, 2283-8, 2131-10 #### [facility] ([id number]) [address] [facility], [address] [place] [address] #### 03090-7 #### [facility] ([id number]) [address] [place] [address] 33204NIMY IONIZED CALCIUMon 24-55-4121VFDAGWYD ICA3.9 mg/dLLow 4.5-5.3PChildren's Hospital of ColumbusComment on above:Performed By: #### CBCA, CMP, FEPR, 29884-3, TSHR, 2276-4, HA1C, 2283-09, 2131-10 #### [facility] ([id number]) [address] [facility], [address] [place] [address] #### 06421-7 #### [facility] ([id number]) [address] [place] [address] 83849JQO WITH AUTO DIFFERENTIALon 29-28-3301YCQWGPNJR ABSOLUTE COUNT (10*3/UL) BY AUTOMATED COUNT0.1 10*3/uLNormal0.0-0.2PChildren's Hospital of Columbus Comment on above:Performed By: #### CBCA, CMP, FEPR, 78137-3, TSHR, 2276-4, HA1C, 2283-, 2131-10 #### [facility] ([id number]) [address], [address] [place] [address] #### 09079-3 #### [facility] ([id number]) [address] [place] [address] [place] [address]QGTHSMGYF RELATIVE PERCENT BY AUTOMATED COUNT0.5 %Normal [facility] HospitalComment on above:Performed By: #### CBCA, CMP, FEPR, 76744-0, TSHR, 2276-4, HA1C, 2284-8, 2131-10 #### [facility] ([id number]) [address], [address] [place] [address] #### 16863-2 #### [facility] ([id number]) [address] [place] [address] 40468NFERIKDKPGX DIFFERENTIAL TYPEAUTOMATED DIFFERENTIALNormal [facility] HospitalComment on above:Performed By: #### CBCA, CMP, FEPR, 00032-6, TSHR, 2276-4, HA1C, 2283-8, 2131-10 #### [facility] ([id number]) [address], [address] [place] [address] #### 23122-6 #### [facility] ([id number]) [address] [place] [address] 52534Ncmrvvetdwv (Bld) [#/Vol]0.0 10*3/uLNormal0.0-0.4ProMedica Downey Regional Medical CenterComment on above:Performed By: #### CBCA, CMP, FEPR, 52873-5, TSHR, 2276-4, HA1C, 2283-8, 2131-10 #### [facility] ([id number]) [address] [facility], [address] [place] [address] #### 55038-6 #### [facility] ([id number]) [address] [place] [address] 05495FGFLDHMIMYC RELATIVE PERCENT BY AUTOMATED COUNT0.1 %Normal [facility] HospitalComment on above:Performed By: #### CBCA, CMP, FEPR, 50595-7, TSHR, 2276-4, HA1C, 2284-8, 2131-10 #### [facility] ([id number]) [address] [place] [address], [facility] [address] [place] [address] #### 57218-3 #### [facility] ([id number]) [address] [place] [address] 05281Xopehwzvdhx distribution width (RBC) [Ratio]15.9 %High11.5-15 Pro[facility] Regional Medical CenterComment on above:Performed By: #### CBCA, CMP, FEPR, 93668-2, TSHR, 2276-4, HA1C, 2283-8, 2131-10 #### [facility] ([id number]) [address] [place] [address], [address] [address] #### 44025-8 #### [facility] ([id number]) [address] [place] [address] 72208Izifrkhzir (Bld) [Volume fraction]35.0 %Vihykw13-43QjfJhdito [facility] Medical CenterComment on above:Performed By: #### CBCA, CMP, FEPR, 60572-0, TSHR, 2276-4, HA1C, 2283-, 2131-10 #### [facility] ([id number]) [address] [place] [address], [facility] [address] [place] [address] #### 65038-1 #### [facility] ([id number]) [address] [place] [address] 31115Ixclhctlvl (Bld) [Mass/Vol]11.8 g/zYUjerzo84.7-15.5ProMedica [facility]ney Regional Medical CenterComment on above:Performed By: #### CBCA, CMP, FEPR, 23543-2, TSHR, 2276-4, HA1C, 2283-, 2131-10 #### [facility] ([id number]) [address] [place] [address], [address] [place] [address] #### 12726-0 #### [facility] ([id number]) [address] [place] [address] 16886UZFCCFDPZJR ABSOLUTE COUNT (10*3/UL) BY AUTOMATED COUNT1.2 10*3/uLNormal1.0-3.5ProMedica [facility] Regional Medical CenterComment on above:Performed By: #### CBCA, CMP, FEPR, 65535-0, TSHR, 2276-4, HA1C, 2284-8, 2131-10 #### [facility] ([id number]) [address] [facility], [address] [place] [address] #### 57774-5 #### [facility] ([id number]) [address] [place] [address] 15925CIAMMIYCSMZ RELATIVE PERCENT BY AUTOMATED COUNT9.0 %Normal Pro[facility] Regional Medical CenterComment on above:Performed By: #### CBCA, CMP, FEPR, 36032-3, TSHR, 2276-4, HA1C, 2284-8, 2131-10 #### [facility] ([id number]) [address] [facility], [address] [place] [address] #### 94841-1 #### [facility] ([id number]) [address] [place] [address] 48186WHA (RBC) [Entitic mass]29.0 rmXvdxox86-76WqmFezlvx [facility] CenterComment on above:Performed By: #### CBCA, CMP, FEPR, 81344-3, TSHR, 2276-4, HA1C, 2284-8, 2131-10 #### [facility] ([id number]) [address] [facility], [address] [place] [address] #### 77752-8 #### [facility] ([id number]) [address] [place] [address] 37389GNVV (RBC) [Mass/Vol]33.7 g/wSInyibb31-72IwyPngajjPermian Regional Medical CenterComment on above:Performed By: #### CBCA, CMP, FEPR, 20956-5, TSHR, 2276-4, HA1C, 2283-09, 2131-10 #### [facility] ([id number]) [address], [address] [place] [address] #### 43592-3 #### [facility] ([id number]) [address] [place] [address] 52756QQN (RBC) [Entitic vol]86 rYGibohl64-834IxmNhperw [facility] HospitalComment on above:Performed By: #### CBCA, CMP, FEPR, 69551-8, TSHR, 2276-4, HA1C, 2283-09, 2131-10 #### [facility] ([id number]) [address] [facility], [address] [place] [address] #### 21576-8 #### [facility] ([id number]) [address] [place] [address] 95357QTKZQYKRB ABSOLUTE COUNT (10*3/UL) BY AUTOMATED COUNT0.9 10*3/uLNormal0.0-0.9[facility] HospitalComment on above:Performed By: #### CBCA, CMP, FEPR, 96794-3, TSHR, 2276-4, HA1C, 2283-09, 2131-10 #### [facility] ([id number]) [address] [facility], [address] [place] [address] #### 50795-1 #### [facility] ([id number]) [address] [place] [address] 64143RVHHTQUQY RELATIVE PERCENT BY AUTOMATED COUNT6.6 %Normal ProMPromise Hospital of East Los AngelesComment on above:Performed By: #### CBCA, CMP, FEPR, 73308-1, TSHR, 2276-4, HA1C, 2283-09, 2131-10 #### [facility] ([id number]) [address], [address] [place] [address] #### 88855-2 #### [facility] ([id number]) [address] [place] [address] 09998DJFVLOPHWSM ABSOLUTE COUNT BY AUTOMATED COUNT11.4 10*3/uLHigh 1.5-6.6ProWadsworth-Rittman Hospitalca [facility] Medical CenterComment on above:Performed By: #### CBCA, CMP, FEPR, 48631-0, TSHR, 2276-4, HA1C, 2283-09, 2131-10 #### [facility] ([id number]) [address], [address] [place] [address] #### 45784-5 #### [facility] ([id number]) [address] [place] [address] 45763OFJFPSOMPKG RELATIVE PERCENT BY AUTOMATED COUNT83.8 %Normal [facility] HospitalComment on above:Performed By: #### CBCA, CMP, FEPR, 65462-4, TSHR, 2276-4, HA1C, 2283-09, 2131-10 #### [facility] ([id number]) [address], [address] [place] [address] #### 59802-5 #### [facility] ([id number]) [address] [place] [address] 58707Bfxsgwmp mean volume (Bld) [Entitic vol]7.9 fLNormal7-12 [facility] HospitalComment on above:Performed By: #### CBCA, CMP, FEPR, 30772-3, TSHR, 2276-4, HA1C, 2283-09, 2131-10 #### [facility] ([id number]) [address], [address] [place] [address] #### 20725-5 #### [facility] ([id number]) [address] [place] [address] 36539Mijievjyf (Bld) [#/Vol]248 10*3/jUFqozpa983-450DwsUnaopkCleveland Clinic Euclid HospitalComment on above:Performed By: #### CBCA, CMP, FEPR, 91853-1, TSHR, 2276-4, HA1C, 2284-8, 2131-9 #### [facility] ([id number]) [address] [facility], [address] [place] [address] #### 87127-0 #### [facility] ([id number]) [address] [place] [address] 52927OUI COUNT4.06 X10E12/LNormal3.8-5.2PChildren's Hospital of [facility] Comment on above:Performed By: #### CBCA, CMP, FEPR, 47617-8, TSHR, 2276-4, HA1C, 2284-8, 2131-10 #### [facility] ([id number]) [address] [facility], [address] [place] [address] #### 95781-2 #### [facility] ([id number]) [address] [place] [address] 45385LXV (Bld) [#/Vol]13.6 10*3/uLHigh4-11[facility] Comment on above:Performed By: #### CBCA, CMP, FEPR, 57397-9, TSHR, 2276-4, HA1C, 2284-8, 2131-9 #### [facility] ([id number]) [address] [facility], [address] [place] [address] #### 98883-8 #### [facility] ([id number]) [address] [place] [address] 83559TDDOGBHHVQJFQ METABOLIC PANELon 02-33-8802Rugfyet [Mass/Vol]3.1 g/dLLow3.2-5.3PChildren's Hospital of ColumbusComment on above:Performed By: #### CBCA, CMP, FEPR, 89168-8, TSHR, 2276-4, HA1C, 2283-8, 2131-10 #### [facility] ([id number]) [address], [address] [place] [address] #### 52960-3 #### [facility] ([id number]) [address] [place] [address] 73462LUE [Catalytic activity/Vol]310 U/UAruh12-031WhvNylkyfPermian Regional Medical CenterComment on above:Performed By: #### CBCA, CMP, FEPR, 29317-9, TSHR, 2276-4, HA1C, 2283-, 2131-10 #### [facility] ([id number]) [address], [address] [place] [address] #### 32630-1 #### [facility] ([id number]) [address] [place] [address] 80850JHI [Catalytic activity/Vol]3649 U/LHigh<=31PChildren's Hospital of ColumbusComment on above:Performed By: #### CBCA, CMP, FEPR, 10393-7, TSHR, 2276-4, HA1C, 2283-, 2131-10 #### [facility] ([id number]) [address], [address] [place] [address] #### 23429-5 #### [facility] ([id number]) [address] [place] [address] 86011Epbpo gap [Moles/Vol]10 mmol/LNormal5-15ProPermian Regional Medical CenterComment on above:Performed By: #### CBCA, CMP, FEPR, 75051-9, TSHR, 2276-4, HA1C, 2283-8, 2131-10 #### [facility] ([id number]) [address], [address] [place] [address] #### 53859-0 #### [facility] ([id number]) [address] [place] [address] 55150HKX [Catalytic activity/Vol]1845 U/LHigh<=41Pro[facility] Regional Medical CenterComment on above:Performed By: #### CBCA, CMP, FEPR, 70498-9, TSHR, 2276-4, HA1C, 2283-8, 2131-10 #### [facility] ([id number]) [address] [facility], [address] [place] [address] #### 36591-5 #### [facility] ([id number]) [address] [place] [address] 73220Mxbicqecd [Mass/Vol]3.7 mg/dLHigh0.3-1.2ProMedJohn F. Kennedy Memorial HospitalComment on above:Performed By: #### CBCA, CMP, FEPR, 13346-9, TSHR, 2276-4, HA1C, 2283-, 2131-10 #### [facility] ([id number]) [address] [facility], [address] [place] [address] #### 35623-9 #### [facility] ([id number]) [address] [place] [address] 77189Ovzudkg [Mass/Vol]7.7 mg/dLLow8.5-10.5PChildren's Hospital of ColumbusComment on above:Performed By: #### CBCA, CMP, FEPR, 03240-4, TSHR, 2276-4, HA1C, 2283-, 2131-10 #### [facility] ([id number]) [address] [facility], [address] [place] [address] #### 89296-2 #### [facility] ([id number]) [address] [place] [address] 11264Lhdtudbs [Moles/Vol]110 mmol/MAwdj87-628YyyZtdqqpPermian Regional Medical CenterComment on above:Performed By: #### CBCA, CMP, FEPR, 94331-9, TSHR, 2276-4, HA1C, 2283-8, 2131-10 #### [facility] ([id number]) [address] [facility], [address] [place] [address] #### 40373-3 #### [facility] ([id number]) [address] [place] [address] 94275KT7 [Moles/Vol]19 mmol/QPxc34-79CzsMmllnqChildren's Hospital of Columbus Comment on above:Performed By: #### CBCA, CMP, FEPR, 43872-1, TSHR, 2276-4, HA1C, 2283-, 2131-10 #### [facility] ([id number]) [address] [facility], [address] [place] [address] #### 22314-8 #### [facility] ([id number]) [address] [place] [address] 74728Kcrfwoilka [Mass/Vol]0.85 mg/dLNormal0.40-1.00[facility] HospitalComment on above:Result Comment: METHOD TRACEABLE TO IDMS STANDARD Performed By: #### CBCA, CMP, FEPR, 82052-2, TSHR, 2276-4, HA1C, 2283-, 2131-10 #### [facility] ([id number]) [address] [facility], [address] [place] [address] #### 28797-8 #### [facility] ([id number]) [address] [place] [address] 41875XHM/1.73 sq M.predicted among non-blacks MDRD (S/P/Bld) [Vol rate/Area]77 mL/min/{1.73_m2}Normal>=60ProPermian Regional Medical CenterComment on above:Result Comment: eGFR not reported due to non-numeric value for Creatinine. Reported eGFR is based on the CKD-EPI 2020 equation that does not use a race coefficient.Performed By: #### CBCA, CMP, FEPR, 89192-4, TSHR, 2276-4, HA1C, 2283-09, 2131-10 #### [facility] ([id number]) [address], [address] [place] [address] #### 36162-7 #### [facility] ([id number]) [address] [place] [address] 00452Hqzhoza [Mass/Vol]104 mg/lMUdxy26-24ArqEdmxhlPermian Regional Medical Center Comment on above:Performed By: #### CBCA, CMP, FEPR, 56758-9, TSHR, 2276-4, HA1C, 2283-09, 2131-10 #### [facility] ([id number]) [address], [address] [place] [address] #### 72232-6 #### [facility] ([id number]) [address] [place] [address] 79660Wehifoahf [Moles/Vol]4.0 mmol/LNormal3.5-5.0ProPermian Regional Medical CenterComment on above:Performed By: #### CBCA, CMP, FEPR, 58193-1, TSHR, 2276-4, HA1C, 2283-09, 2131-10 #### [facility] ([id number]) [address], [address] [place] [address] #### 30568-3 #### [facility] ([id number]) [address] [place] [address] 49156Zgyaxvw [Mass/Vol]6.3 g/dLNormal6.0-8.0ProPermian Regional Medical CenterComment on above:Performed By: #### CBCA, CMP, FEPR, 06442-2, TSHR, 2276-4, HA1C, 2283-09, 2131-10 #### [facility] ([id number]) [address], [address] [place] [address] #### 68694-3 #### [facility] ([id number]) [address] [place] [address] 51339Ysctro [Moles/Vol]139 mmol/CUmtqpb237-256JfjNoscco Fremont HospitalComment on above:Performed By: #### CBCA, CMP, FEPR, 43213-9, TSHR, 2276-4, HA1C, 2283-09, 2131-10 #### [facility] ([id number]) [address], [address] [place] [address] #### 08736-1 #### [facility] ([id number]) [address] [place] [address] 83218Nruv nitrogen [Mass/Vol]30 mg/dLHigh5-27ProPermian Regional Medical CenterComment on above:Performed By: #### CBCA, CMP, FEPR, 43809-0, TSHR, 2276-4, HA1C, 2283-09, 2131-10 #### [facility] ([id number]) [address], [address] [place] [address] #### 04081-4 #### [facility] ([id number]) [address] [place] [address] 61696AEPBMZE W/ REFLEXon 41-08-8015QMAPMOH W/REFLEX1.0 mmol/LNormal 0.4-2.0ProPermian Regional Medical CenterComment on above:Order Comment: Result did not trigger repeat Lactate,re-order if needed.Performed By: #### CBCA, CMP, FEPR, 83758-4, TSHR, 2276-4, HA1C, 2283-09, 2131-10 #### [facility] ([id number]) [address], [address] [place] [address] #### 00110-1 #### [facility] ([id number]) [address] [place] [address] 31307MYAAXEV W/REFLEX1.1 mmol/LNormal0.4-2.0ProPermian Regional Medical CenterComment on above:Order Comment: Result did not trigger repeat Lactate,re-order if needed.Performed By: #### CBCA, CMP, FEPR, 51577-2, TSHR, 2276-4, HA1C, 2284-8, 2131-9 #### [facility] ([id number]) [address] [facility], [address] [place] [address] #### 76708-2 #### [facility] ([id number]) [address] [place] [address] [id number] 73-42-0465Ctiyajnlj [Mass/Vol]2.2 mg/dLNormal 1.8-2.6ProPermian Regional Medical CenterComment on above:Performed By: #### CBCA, CMP, FEPR, 55908-8, TSHR, 2276-4, HA1C, 2284-8, 2131-9 #### [facility] ([id number]) [address], [address] [place] [address] #### 27241-1 #### [facility] ([id number]) [address] [place] [address] 30093VRDN I, HIGH SENSITIVITY 3 HOURon 19-62-9239RKLVHEIW I, HIGH BAENHXOYSJQ93 ng/LHigh<16ProPermian Regional Medical CenterComment on above:Order Comment: Elevations of hs-Troponin may be due to causesother than myocardial ischemia.Recommend serial hs-Troponin testing be performed.For the initial evaluation and management of chestpain patients, refer to the algorithms linked below.Emergency Patient:[email or web address]:[email or web address]=[email or web address] By: #### CBCA, CMP, FEPR, 95357-2, TSHR, 2276-4, HA1C, 2284-8, 2131-10 #### [facility] ([id number]) [address] [facility], [address] [place] [address] #### 21060-0 #### [facility] ([id number]) [address] [place] [address] 04103WHR WITH AUTO DIFFERENTIALon 08-24-2246JQJFZJRCC ABSOLUTE COUNT (10*3/UL) BY AUTOMATED COUNT0.1 10*3/uLNormal0.0-0.2PChildren's Hospital of [facility] Comment on above:Performed By: #### CBCA, CMP, FEPR, 64628-3, TSHR, 2276-4, HA1C, 2284-8, 2131-10 #### [facility] ([id number]) [address] [facility], [address] [place], [place] [address] #### 91809-3 #### [facility] ([id number]) [address] [place] [address] 79990NEGZNNOTL RELATIVE PERCENT BY AUTOMATED COUNT0.7 %Normal [facility] HospitalComment on above:Performed By: #### CBCA, CMP, FEPR, 38481-8, TSHR, 2276-4, HA1C, 2284-8, 2131-10 #### [facility] ([id number]) [address] [place] [address], [address] [address] #### 45012-7 #### [facility] ([id number]) [address] [place] [address] 26347HBPXDMRNYAN DIFFERENTIAL TYPEAUTOMATED DIFFERENTIALNormal [facility] HospitalComment on above:Performed By: #### CBCA, CMP, FEPR, 34292-2, TSHR, 2276-4, HA1C, 2283-8, 2131-10 #### [facility] ([id number]) [address], [address] [place] [address] #### 90944-8 #### [facility] ([id number]) [address] [place] [address] 83494Qkxfgdxrfjz (Bld) [#/Vol]0.0 10*3/uLNormal0.0-0.4ProWadsworth-Rittman Hospitalca [facility] Medical CenterComment on above:Performed By: #### CBCA, CMP, FEPR, 74559-8, TSHR, 2276-4, HA1C, 2283-09, 2131-10 #### [facility] ([id number]) [address] [address] #### 92378-4 #### [facility] ([id number]) [address] [place] [address] 13053KTNZWYUFMOC RELATIVE PERCENT BY AUTOMATED COUNT0.1 %Normal [facility] HospitalComment on above:Performed By: #### CBCA, CMP, FEPR, 57877-4, TSHR, 2276-4, HA1C, 2283-09, 2131-10 #### [facility] ([id number]) [address] [facility] [address] [place] [address] #### 77746-7 #### [facility] ([id number]) [address] [place] [address] 87093Wshyhkiiuxs distribution width (RBC) [Ratio]15.9 %High11.5-15 [facility] HospitalComment on above:Performed By: #### CBCA, CMP, FEPR, 72256-6, TSHR, 2276-4, HA1C, 2283-8, 2131-10 #### [facility] ([id number]) [address], [address] [place] [address] #### 40322-1 #### [facility] ([id number]) [address] [place] [address] 77563Wjnismxkya (Bld) [Volume fraction]36.4 %Rskkkm99-73YmwKcjxrc [facility] CenterComment on above:Performed By: #### CBCA, CMP, FEPR, 57716-8, TSHR, 2276-4, HA1C, 2283-8, 2131-10 #### [facility] ([id number]) [address], [address] [place] [address] #### 39807-8 #### [facility] ([id number]) [address] [place] [address] 54975Yrvfkcfecd (Bld) [Mass/Vol]12.2 g/qXBvwpgv48.7-15.5PChildren's Hospital of ColumbusComment on above:Performed By: #### CBCA, CMP, FEPR, 67625-0, TSHR, 2276-4, HA1C, 2283-, 2131-10 #### [facility] ([id number]) [address], [address] [place] [address] #### 07982-5 #### [facility] ([id number]) [address] [place] [address] 52765RBAJCJDJHUC ABSOLUTE COUNT (10*3/UL) BY AUTOMATED COUNT1.3 10*3/uLNormal1.0-3.5PChildren's Hospital of ColumbusComment on above:Performed By: #### CBCA, CMP, FEPR, 28561-3, TSHR, 2276-4, HA1C, 4-8, 2131-10 #### [facility] ([id number]) [address], [address] [place] [address] #### 49403-5 #### [facility] ([id number]) [address] [place] [address] 70226DUCDMINURBG RELATIVE PERCENT BY AUTOMATED COUNT15.0 %Normal [facility] Medical CenterComment on above:Performed By: #### CBCA, CMP, FEPR, 82263-1, TSHR, 2276-4, HA1C, 2283-8, 2131-10 #### [facility] ([id number]) [address], [address] [place] [address] #### 07499-7 #### [facility] ([id number]) [address] [place] [address] 07878ZDN (RBC) [Entitic mass]29.0 hpGopyjx45-52RrnMbkdhgPermian Regional Medical CenterComment on above:Performed By: #### CBCA, CMP, FEPR, 89337-1, TSHR, 2276-4, HA1C, 2283-09, 2131-10 #### [facility] ([id number]) [address] [facility], [address] [place] [address] #### 27398-5 #### [facility] ([id number]) [address] [place] [address] 47328OIPE (RBC) [Mass/Vol]33.5 g/aNEvauqc43-72TtcIbkgxtPermian Regional Medical CenterComment on above:Performed By: #### CBCA, CMP, FEPR, 71870-3, TSHR, 2276-4, HA1C, 2283-09, 2131-10 #### [facility] ([id number]) [address], [address] [place] [address] #### 96367-4 #### [facility] ([id number]) [address] [place] [address] 00372EYM (RBC) [Entitic vol]87 aSPprxda79-634KpaSippio [facility] HospitalComment on above:Performed By: #### CBCA, CMP, FEPR, 13016-0, TSHR, 2276-4, HA1C, 2284-8, 2131-10 #### [facility] ([id number]) [address], [address] [place] [address] #### 26216-0 #### [facility] ([id number]) [address] [place] [address] 98234LMBXSPAWH ABSOLUTE COUNT (10*3/UL) BY AUTOMATED COUNT0.5 10*3/uLNormal0.0-0.9ProPermian Regional Medical CenterComment on above:Performed By: #### CBCA, CMP, FEPR, 79927-3, TSHR, 2276-4, HA1C, 2284-8, 2131-10 #### [facility] ([id number]) [address], [address] [place] [address] #### 71698-4 #### [facility] ([id number]) [address] [place] [address] 19336MUXTHLAYC RELATIVE PERCENT BY AUTOMATED COUNT5.8 %Normal ProMselect specialty hospitala [facility] Medical CenterComment on above:Performed By: #### CBCA, CMP, FEPR, 41661-3, TSHR, 2276-4, HA1C, 4-8, 2131-10 #### [facility] ([id number]) [address], [address] [place] [address] #### 04309-6 #### [facility] ([id number]) [address] [place] [address] [id number] ABSOLUTE COUNT BY AUTOMATED COUNT7.0 10*3/uLHigh 1.5-6.6ProPermian Regional Medical CenterComment on above:Performed By: #### CBCA, CMP, FEPR, 86247-7, TSHR, 2276-4, HA1C, 2284-8, 2131-10 #### [facility] ([id number]) [address], [address] [place] [address] #### 56156-8 #### [facility] ([id number]) [address] [place] [address] 64586OVHEKMZYCEF RELATIVE PERCENT BY AUTOMATED COUNT78.4 %Normal [facility] HospitalComment on above:Performed By: #### CBCA, CMP, FEPR, 31313-0, TSHR, 2276-4, HA1C, 2284-8, 2131-10 #### [facility] ([id number]) [address] [facility], [address] [place] [address] #### 66482-1 #### [facility] ([id number]) [address] [place] [address] 08702Doffgcxy mean volume (Bld) [Entitic vol]7.9 fLNormal7-12 [facility] HospitalComment on above:Performed By: #### CBCA, CMP, FEPR, 71245-6, TSHR, 2276-4, HA1C, 2284-8, 2131-10 #### [facility] ([id number]) [address] [facility], [address] [place] [address] #### 08778-8 #### [facility] ([id number]) [address] [place] [address] 17692Lmxpqqbvz (Bld) [#/Vol]274 10*3/mVFlnrzm754-796JgxUnakxh [facility] CenterComment on above:Performed By: #### CBCA, CMP, FEPR, 17598-2, TSHR, 2276-4, HA1C, 2284-8, 2131-10 #### [facility] ([id number]) [address], [address] [place] [address] #### 85561-3 #### [facility] ([id number]) [address] [place] [address] 62834PKP COUNT4.20 X10E12/LNormal3.8-5.2PChildren's Hospital of [facility] Comment on above:Performed By: #### CBCA, CMP, FEPR, 70167-0, TSHR, 2276-4, HA1C, 2283-8, 2131-10 #### [facility] ([id number]) [address], [address] [place] [address] #### 50840-6 #### [facility] ([id number]) [address] [place] [address] 54451IPJ (Bld) [#/Vol]8.9 10*3/uLNormal4-11ProPermian Regional Medical CenterComment on above:Performed By: #### CBCA, CMP, FEPR, 38597-1, TSHR, 2276-4, HA1C, 2283-09, 2131-10 #### [facility] ([id number]) [address] [facility], [address] [place] [address] #### 23378-9 #### [facility] ([id number]) [address] [place] [address] 07477YQLEFYOKKJHLX METABOLIC PANELon 41-03-9376Wuyjkao [Mass/Vol]3.1 g/dLLow3.2-5.3PChildren's Hospital of ColumbusComment on above:Performed By: #### CBCA, CMP, FEPR, 07567-6, TSHR, 2276-4, HA1C, 2283-09, 2131-10 #### [facility] ([id number]) [address], [address] [place] [address] #### 38437-0 #### [facility] ([id number]) [address] [place] [address] 47462FEW [Catalytic activity/Vol]354 U/UKxag85-997UcrMjosrmPermian Regional Medical CenterComment on above:Performed By: #### CBCA, CMP, FEPR, 61068-7, TSHR, 2276-4, HA1C, 2284-8, 2131-10 #### [facility] ([id number]) [address] [facility], [address] [place] [address] #### 13993-1 #### [facility] ([id number]) [address] [place] [address] 28736XCV [Catalytic activity/Vol]5629 U/LHigh<=31[facility] Medical CenterComment on above:Performed By: #### CBCA, CMP, FEPR, 09526-0, TSHR, 2276-4, HA1C, 2283-8, 2131-10 #### [facility] ([id number]) [address] [facility], [address] [place] [address] #### 10909-7 #### [facility] ([id number]) [address] [place] [address] 55622Vdbaj gap [Moles/Vol]7 mmol/LNormal5-15[facility] HospitalComment on above:Performed By: #### CBCA, CMP, FEPR, 81907-7, TSHR, 2276-4, HA1C, 2283-, 2131-10 #### [facility] ([id number]) [address] [facility], [address] [place] [address] #### 45064-6 #### [facility] ([id number]) [address] [place] [address] 63426CYK [Catalytic activity/Vol]3776 U/LHigh<=41ProPermian Regional Medical CenterComment on above:Performed By: #### CBCA, CMP, FEPR, 31390-5, TSHR, 2276-4, HA1C, 2283-, 2131-10 #### [facility] ([id number]) [address] [facility], [address] [place] [address] #### 12812-9 #### [facility] ([id number]) [address] [place] [address] 73308Uumhxters [Mass/Vol]2.8 mg/dLHigh0.3-1.2PChildren's Hospital of ColumbusComment on above:Performed By: #### CBCA, CMP, FEPR, 83616-6, TSHR, 2276-4, HA1C, 4-8, 2131-10 #### [facility] ([id number]) [address], [address] [place] [address] #### 24830-6 #### [facility] ([id number]) [address] [place] [address] 47457Hfqzney [Mass/Vol]8.6 mg/dLNormal8.5-10.5PChildren's Hospital of ColumbusComment on above:Performed By: #### CBCA, CMP, FEPR, 64688-3, TSHR, 6-4, HA1C, 2283-, 2131-10 #### [facility] ([id number]) [address] [facility], [address] [place] [address] #### 39668-6 #### [facility] ([id number]) [address] [place] [address] 53913Dncshjbk [Moles/Vol]106 mmol/KLmfztw71-854TtsVrzjhi [facility] CenterComment on above:Performed By: #### CBCA, CMP, FEPR, 23737-5, TSHR, 2276-4, HA1C, 2283-, 2131-10 #### [facility] ([id number]) [address] [facility], [address] [place] [address] #### 36913-3 #### [facility] ([id number]) [address] [place] [address] 43184AD4 [Moles/Vol]23 mmol/LIpsfeq59-84IyvXiigkqChildren's Hospital of Columbus Comment on above:Performed By: #### CBCA, CMP, FEPR, 69382-9, TSHR, 2276-4, HA1C, 2283-8, 2131-10 #### [facility] ([id number]) [address] [address] #### 76184-2 #### [facility] ([id number]) [address] [place] [address] 46678Awrsbpgigz [Mass/Vol]0.69 mg/dLNormal0.40-1.00ProPermian Regional Medical CenterComment on above:Result Comment: METHOD TRACEABLE TO IDMS STANDARD Performed By: #### CBCA, CMP, FEPR, 40057-8, TSHR, 2276-4, HA1C, 2283-, 2131-10 #### [facility] ([id number]) [address] [place] [address] #### 14882-5 #### [facility] ([id number]) [address] [place] [address] 61081OUST (CKD-EPI) NON-RACE DEPENDENT>^90Normal>=60ProPermian Regional Medical CenterComment on above:Result Comment: eGFR not reported due to non- numeric value for Creatinine. Reported eGFR is based on the CKD-EPI 2020 equation that does not use a race coefficient.Performed By: #### CBCA, CMP, FEPR, 42950-8, TSHR, 2276-4, HA1C, 2283-, 2131-10 #### [facility] ([id number]) [address] [facility], [address] [place] [address] #### 81274-3 #### [facility] ([id number]) [address] [place] [address] 83033Lzhjqeg [Mass/Vol]72 mg/cZMuxcbq48-48MyrAvjyjwCleveland Clinic Euclid Hospital Comment on above:Performed By: #### CBCA, CMP, FEPR, 56488-7, TSHR, 2276-4, HA1C, 2283-09, 2131-10 #### [facility] ([id number]) [address], [address] [place] [address] #### 52122-6 #### [facility] ([id number]) [address] [place] [address] 97169Bsjeudhsd [Moles/Vol]4.5 mmol/LNormal3.5-5.0ProPermian Regional Medical CenterComment on above:Performed By: #### CBCA, CMP, FEPR, 17480-3, TSHR, 2276-4, HA1C, 2283-09, 2131-10 #### [facility] ([id number]) [address], [address] [place] [address] #### 95098-2 #### [facility] ([id number]) [address] [place] [address] 31891Sbpgyva [Mass/Vol]6.8 g/dLNormal6.0-8.0ProPermian Regional Medical CenterComment on above:Performed By: #### CBCA, CMP, FEPR, 92684-8, TSHR, 2276-4, HA1C, 2283-09, 2131-10 #### [facility] ([id number]) [address], [address] [place] [address] #### 95956-9 #### [facility] ([id number]) [address] [place] [address] 25838Kwogfs [Moles/Vol]136 mmol/ZDfnxpa652-760EgwMpmheb [facility] HospitalComment on above:Performed By: #### CBCA, CMP, FEPR, 08628-7, TSHR, 2276-4, HA1C, 2283-09, 2131-10 #### [facility] ([id number]) [address], [address] [place] [address] #### 88190-4 #### [facility] ([id number]) [address] [facility] [place], [place] [address]Hlmm nitrogen [Mass/Vol]26 mg/dLNormal5-27[facility] HospitalComment on above:Performed By: #### CBCA, CMP, FEPR, 33982-7, TSHR, 2276-4, HA1C, 2284-8, 2132-9 #### [facility] ([id number]) [address] [place] [address] #### 53131-3 #### [facility] ([id number]) [address] [facility], [place], [place] [address]LY ABDOMEN AND PELVIS W CONTon 29-00-6660OA ABDOMEN AND PELVIS W CONTCT ABDOMEN AND PELVIS W CONT STUDY: ABDOMEN [...] by Miryam Blair MD on 10/11/2024 8:52 PMNormalProPermian Regional Medical CenterCT BRAIN WO CONTon 46-28-8016HN BRAIN WO CONTCT BRAIN WO CONT STUDY: CT HEAD WITHOUT [...] by Deepika Field MD on 10/11/2024 10:06 PMNSt. Mary's Medical CenterCT CERVICAL SPINE WO CONTon 97-19-4264HI CERVICAL SPINE WO CONTCT CERVICAL SPINE WO CONT Exam: Cervical spine [...] by Deepika Field MD on 10/11/2024 8:36 PMNSt. Mary's Medical CenterDRUG SCREEN, URINEon 22-43-8385YGKJOQQSVMH/METHAMPNegativeNormalNegative [facility] Medical CenterComment on above:Result Comment: AMPH/METH screening cut off = 1000 ng/mLPerformed By: #### CBCA, CMP, FEPR, 66158-7, TSHR, 2276-4, HA1C, 2283-8, 2131-10 #### [facility] ([id number]) [address] [facility], [address] [place] [address] #### 76604-7 #### [facility] ([id number]) [address] [place] [address] 86117GVQTBXFINXXBIwaxlxbfSpxtgoEwurbawzCtnQnkicz [facility] Comment on above:Result Comment: Barbiturates screening cut off value = 200 ng/mLPerformed By: #### CBCA, CMP, FEPR, 95411-9, TSHR, 2276-4, HA1C, 2283-, 2131-10 #### [facility] ([id number]) [address] [facility], [address] [place] [address] #### 20560-9 #### [facility] ([id number]) [address] [place] [address] 58164BJLYRZXGADKCZJMUsebdsglPhglskEnoxdvpfAeyNqlmlv [facility] Comment on above:Result Comment: Benzodiazepines screening cut off value = 200 ng/mLPerformed By: #### CBCA, CMP, FEPR, 27133-7, TSHR, 2276-4, HA1C, 2283-09, 2131-10 #### [facility] ([id number]) [address] [facility], [address] [place] [address] #### 30475-3 #### [facility] ([id number]) [address] [place] [address] 39203WHUGIAPTEDTHNfjwzevaVbsyjgYyhgwoxjWhvUbmliu [facility] Comment on above:Result Comment: Cannabinoids/THC screening cut off value = 50 ng/mLPerformed By: #### CBCA, CMP, FEPR, 27053-0, TSHR, 2276-4, HA1C, 4-8, 2131-10 #### [facility] ([id number]) [address] [facility], [address] [place] [address] #### 97869-7 #### [facility] ([id number]) [address] [place] [address] 26847VHPZUOR METABOLITENegativeNormalNegativeCleveland Clinic Euclid HospitalComment on above:Result Comment: Cocaine screening cut off value = 300 ng/mLPerformed By: #### CBCA, CMP, FEPR, 98618-2, TSHR, 2276-4, HA1C, 2283-8, 2131-10 #### [facility] ([id number]) [address] [facility], [address] [place] [address] #### 13056-2 #### [facility] ([id number]) [address] [place] [address] 05443LMQQKVUMpavdejaRxvxgeZsovqqduRgkPemhai [facility] HospitalComment on above:Result Comment: Ecstasy screening cut off value = 500 ng/mLPerformed By: #### CBCA, CMP, FEPR, 52836-1, TSHR, 2276-4, HA1C, 2283-8, 2131-10 #### [facility] ([id number]) [address] [facility], [address] [place] [address] #### 46983-4 #### [facility] ([id number]) [address] [place] [address] 68157CWNJZNBEOQnkfgzjzJbwdktNcraahnhScjWexocn [facility] Comment on above:Result Comment: Methadone screening cut off value = 300 ng/mL. Performed By: #### CBCA, CMP, FEPR, 63332-1, TSHR, 2276-4, HA1C, 2283-8, 2131-10 #### [facility] ([id number]) [address] [facility], [address] [place] [address] #### 71659-4 #### [facility] ([id number]) [address] [place] [address] 45270UONVMCUKlwdnxlpPdbeetQsojdqwrIbsIhnyak [facility] HospitalComment on above:Result Comment: Opiates screening cut off value = 300 ng/mL This test is used for the detection of codeine, hydrocodone (>1000 ng/mL), morphine and hydromorphone (>900 ng/mL) in urine.Performed By: #### CBCA, CMP, FEPR, 62774-5, TSHR, 2276-4, HA1C, 2284-8, 2131-10 #### [facility] ([id number]) [address] [place] [address], [address] [place] [address] #### 09697-5 #### [facility] ([id number]) [address] [place] [address] 34179MCPVMTMXKBnptnpccDfbbtlJnlotzuxTbhLcdfgj [facility] Comment on above:Result Comment: Oxycodone screening cut off value = 300 ng/mL This test is used for the detection of oxycodone and oxymorphone in urine.Performed By: #### CBCA, CMP, FEPR, 78524-3, TSHR, 2276-4, HA1C, 2283-8, 2131-10 #### [facility] ([id number]) [address] [place] [address], [address] [place] [address] #### 01568-8 #### [facility] ([id number]) [address] [place] [address] 67144KSVVLVKWAODGTHfayizdkDeqdrjOssknaaaKimOsotqj [facility] Comment on above:Result Comment: Phencyclidine screening cut off value = 25 ng/mLPerformed By: #### CBCA, CMP, FEPR, 69389-0, TSHR, 2276-4, HA1C, 4-8, 2131-10 #### [facility] ([id number]) [address] [place] [address], [address] [place] [address] #### 01417-8 #### [facility] ([id number]) [address] [place] [address] 12517WNPUPODce 53-19-4920Vnvigbn [Moles/Vol]2.7 mmol/LHigh0.4-2.0 [facility] Medical CenterComment on above:Performed By: #### CBCA, CMP, FEPR, 56088-5, TSHR, 2276-4, HA1C, 2284-8, 2131-9 #### [facility] ([id number]) [address] [facility], [address] [place] [address] #### 29548-7 #### [facility] ([id number]) [address] [place] [address] [id number] W/ REFLEXon 36-26-0868JXLLAXH W/REFLEX2.6 mmol/LHigh 0.4-2.0ProPerm[facility] Medical CenterComment on above:Performed By: #### CBCA, CMP, FEPR, 60091-5, TSHR, 2276-4, HA1C, 2284-8, 2131-10 #### [facility] ([id number]) [address], [address] [place] [address] #### 95720-7 #### [facility] ([id number]) [address] [place] [address] [id number] 06-96-4574Lxjozq [Catalytic activity/Vol]722 U/LHigh 11-82ProPerm[facility] Medical CenterComment on above:Result Comment: I-[place] This is an appended report. These results have been appended to a previously final verified report.Performed By: #### CBCA, CMP, FEPR, 12664-1, TSHR, 2276-4, HA1C, 2284-8, 2131-9 #### [facility] ([id number]) [address], [address] [place] [address] #### 11523-2 #### [facility] ([id number]) [address] [place] [address] [id number] 32-33-9907Zveknaqka [Mass/Vol]2.3 mg/dLNormal 1.8-2.6[facility]ucl[facility] HospitalComment on above:Performed By: #### CBCA, CMP, FEPR, 54807-2, TSHR, 2276-4, HA1C, 228-8, 2131-10 #### [facility] ([id number]) [address], [address] [place] [address] #### 70139-7 #### [facility] ([id number]) [address] [place] [address] [id number] NURSING URINE MACROSCOPIC UAon 08-33-8434KONNUWORM KYLIE SmallAbnormalNegativeCleveland Clinic Euclid HospitalComment on above:Performed By: #### CBCA, CMP, FEPR, 14747-5, TSHR, 2276-4, HA1C, 2283-8, 2131-10 #### [facility] ([id number]) [address] [place] [address], [address] [place] [address] #### 37372-5 #### [facility] ([id number]) [address] [place] [address] [id number]/HGB NURNegativeNormalNegativeCleveland Clinic Euclid Hospital Comment on above:Performed By: #### CBCA, CMP, FEPR, 47899-3, TSHR, 2276-4, HA1C, 2283-8, 2131-10 #### [facility] ([id number]) [facility], [address] [place] [address] #### 03664-6 #### [facility] ([id number]) [address] [place] [address] [id number] RVV588 mg/dLAbnormalNegativeSt. Anthony's Hospitalca [facility] Comment on above:Performed By: #### CBCA, CMP, FEPR, 65081-8, TSHR, 2276-4, HA1C, 4-8, 2131-10 #### [facility] ([id number]) [address], [address] [place] [address] #### 21123-2 #### [facility] ([id number]) [address] [place] [address] [id number] NUR40 mg/dLAbnoMercy Health St. [facility] Comment on above:Performed By: #### CBCA, CMP, FEPR, 77047-2, TSHR, 2276-4, HA1C, 2283-8, 2131-10 #### [facility] ([id number]) [address], [address] [place] [address] #### 08070-5 #### [facility] ([id number]) [address] [place] [address] [id number] ESTERASE NURNegativeNormCleveland ClinicComment on above:Performed By: #### CBCA, CMP, FEPR, 29365-6, TSHR, 2276-4, HA1C, 2283-8, 2131-10 #### [facility] ([id number]) [address], [address] [place] [address] #### 65338-9 #### [facility] ([id number]) [address] [place] [address] [id number] NURNegativeMetroHealth Parma Medical Center Comment on above:Performed By: #### CBCA, CMP, FEPR, 78257-8, TSHR, 2276-4, HA1C, 2283-8, 2131-10 #### [facility] ([id number]) [address], [address] [place] [address] #### 07997-9 #### [facility] ([id number]) [address] [place] [address] [id number] NUR6.7Ambrin7.0, 6.0, 6.5, 7.0, 7.5, 8.0, 8.5, 5.5[facility] Medical CenterComment on above:Performed By: #### CBCA, CMP, FEPR, 80435-9, TSHR, 2276-4, HA1C, 2283-8, 2131-10 #### [facility] ([id number]) [address], [address] [place] [address] #### 48245-3 #### [facility] ([id number]) [address] [place] [address] [id number] PLM646 mg/dLAbnormalNegativeProMedica [facility] Comment on above:Performed By: #### CBCA, CMP, FEPR, 60112-1, TSHR, 2276-4, HA1C, 2283-, 2131-10 #### [facility] ([id number]) [address], [address] [place] [address] #### 84748-6 #### [facility] ([id number]) [address] [place] [address]CIOJWJGI GRAVITY NUR1.031Pedgpl1.010, 1.015, 1.020, 1.025 [facility] CenterComment on above:Performed By: #### CBCA, CMP, FEPR, 47582-3, TSHR, 2276-4, HA1C, 2283-, 2131-10 #### [facility] ([id number]) [address] [facility], [address] [place] [address] #### 92442-8 #### [facility] ([id number]) [address] [place] [address]GWLWQHSWFWLZ NUR0.2 E.U./dLNormalCleveland Clinic [facility] Comment on above:Performed By: #### CBCA, CMP, FEPR, 18589-5, TSHR, 2276-4, HA1C, 2283-8, 2131-10 #### [facility] ([id number]) [address], [address] [place] [address] #### 36471-1 #### [facility] ([id number]) [address] [place], [place] [address]STIS I, HIGH SENSITIVITY 1 HOURon 97-33-5488MXFRKXIM I, HIGH GQHSMKNXUMX57 ng/LHigh<16ProPermian Regional Medical CenterComment on above:Order Comment: Elevations of hs-Troponin may be due to causesother than myocardial ischemia.Recommend serial hs-Troponin testing be performed.For the initial evaluation and management of chestpain patients, refer to the algorithms linked below.Emergency Patient:[email or web address]= [email or web address]:[email or web address] =[email or web address]=acaeaPerformed By: #### CBCA, CMP, FEPR, 05004-0, TSHR, 2276-4, HA1C, 2283-09, 2131-10 #### [facility] ([id number]) [address] [facility], [address] [place] [address] #### 40404-4 #### [facility] ([id number]) [address] [place], [place] [address]CJPFPFNW I, HIGH SENSITIVITY 0 HOURon 45-03-3017WSBWXPNP I, HIGH CJQJEWXCOMX12 ng/LHigh<16ProPermian Regional Medical CenterComment on above: Performed By: #### CBCA, CMP, FEPR, 92946-7, TSHR, 2276-4, HA1C, 2283-8, 2131-10 #### [facility] ([id number]) [address], [address] [place] [address] #### 01180-4 #### [facility] ([id number]) [address] [place] [address], FIRST FLOOR [place], [place] [address]RGZ WITH AUTO DIFFERENTIALon 36-69-9296ZSOSEKPFV ABSOLUTE COUNT (10*3/UL) BY AUTOMATED COUNT0.1 10*3/uLNormal0.0-0.2[facility] Comment on above:Performed By: #### CBCA, PINR, 66833-8 #### [facility] ([id number]) [address], [address] [place], [place] [address]OCSBRLGZL RELATIVE PERCENT BY AUTOMATED COUNT0.7 %Normal [facility] HospitalComment on above:Performed By: #### CBCA, PINR, 29606-0 #### [facility] ([id number]) [address], [address] [place], [place] [address]HEGFIZHDWON DIFFERENTIAL TYPEAUTOMATED DIFFERENTIALNormal [facility] HospitalComment on above:Performed By: #### CBCA, PINR, 48177-0 #### [facility] ([id number]) [address], [address] [place], [place] [address]Wmiknffbgdi (Bld) [#/Vol]0.6 10*3/uLHigh0.0-0.4[facility] HospitalComment on above:Performed By: #### CBCA, PINR, 37227-0 #### [facility] ([id number]) [address], [address] [place], [place] [address]HPSWZSZHNDL RELATIVE PERCENT BY AUTOMATED COUNT8.0 %Normal [facility] HospitalComment on above:Performed By: #### CBCA, PINR, 53822-9 #### [facility] ([id number]) [address], [address] [place], [place] [address]Ckgsonqfrxd distribution width (RBC) [Ratio]14.2 %Rxjyld73.5-15 ProMShannon Medical Centeredo HospitalComment on above:Performed By: #### CBCDavid, PINR, 37757-5 #### [facility] ([id number]) [address], [facility] [address] [place], [place] [address]Zdktsqixsp (Bld) [Volume fraction]28.2 %Mla29-79SqjCbcaip [place] HospitalComment on above:Performed By: #### CBCA, PINR, 26972-1 #### [facility] ([id number]) [address], [facility] [address] [place], [place] [address]Fzxagsapqw (Bld) [Mass/Vol]9.6 g/dLLow11.7-15.5[facility] HospitalComment on above:Performed By: #### CBCA, PINR, 01212-1 #### [facility] ([id number]) [address], [facility] [address] [place], [place] [address]ZWIRZDTLRGV ABSOLUTE COUNT (10*3/UL) BY AUTOMATED COUNT1.2 10*3/uLNormal1.0-3.5PAshtabula [facility] Center HospitalComment on above:Performed By: #### CBCA, PINR, 36369-5 #### [facility] ([id number]) [address], [facility] [address] [place], [place] [address]LYGCCMTICWW RELATIVE PERCENT BY AUTOMATED COUNT15.8 %Normal ProMselect specialty hospitala [place] HospitalComment on above:Performed By: #### CBCA, PINR, 46451-9 #### [facility] ([id number]) [address], [facility] [address] [place], [place] [address]QVF (RBC) [Entitic mass]31.3 qjLtdlqg33-44UoyKthfiv [facility] HospitalComment on above:Performed By: #### CBCA, PINR, 19304-6 #### [facility] ([id number]) [address], [address] [place], [place] [address]YWWF (RBC) [Mass/Vol]34.2 g/cUDuhzci63-41LdgEdvyky [facility] HospitalComment on above:Performed By: #### CBCA, PINR, 82102-9 #### [facility] ([id number]) [address], [address] [place], [place] [address]IIY (RBC) [Entitic vol]91 yLCkkoim84-127NbxBpcino [facility] HospitalComment on above:Performed By: #### CBCA, PINR, 43205-2 #### [facility] ([id number]) [address], [address] [place], [place] [address]ARYAQUHJI ABSOLUTE COUNT (10*3/UL) BY AUTOMATED COUNT0.8 10*3/uL Normal0.0-0.9[facility] HospitalComment on above:Performed By: #### CBCA, PINR, 34712-4 #### [facility] ([id number]) [address], [address] [place], [place] [address]BLIXQQHFV RELATIVE PERCENT BY AUTOMATED COUNT9.9 %Normal [facility] HospitalComment on above:Performed By: #### CBCA, PINR, 79788-9 #### [facility] ([id number]) [address], [address] [place], [place] [address]MAQTVFLJTVR ABSOLUTE COUNT BY AUTOMATED COUNT5.0 10*3/uLNormal 1.5-6.6[facility] HospitalComment on above:Performed By: #### CBCA, PINR, 02764-0 #### [facility] ([id number]) [address], [address] [place], [place] [address]THNQKOPAEGT RELATIVE PERCENT BY AUTOMATED COUNT65.6 %Normal [facility] HospitalComment on above:Performed By: #### CBCA, PINR, 79904-1 #### [facility] ([id number]) [address], [address] [place], [place] [address]Wsnyyopi mean volume (Bld) [Entitic vol]8.2 fLNormal7-12 [facility] HospitalComment on above:Performed By: #### KEVIN BENOIT, 76193-5 #### [facility] ([id number]) [address], [address] [place], [place] [address]Rajfwolcj (Bld) [#/Vol]300 10*3/uJVmrcjc281-843WsbXptfua [facility] HospitalComment on above:Performed By: #### KEVIN BENOIT, 71682-0 #### [facility] ([id number]) [address], [address] [place], [place] [address]ATO COUNT3.09 X10E12/LLow3.8-5.2[facility] HospitalComment on above:Performed By: #### SURENDRA BENOITR, 67008-1 #### [facility] ([id number]) [address], [address] [place], [place] [address]BLI (Bld) [#/Vol]7.7 10*3/uLNormal4-11ProW[facility]sworth-Ritt[facility] Hospitalca [place] [facility] Comment on above:Performed By: #### KEVIN BENOIT, 05070-2 #### [facility] ([id number]) [address], [address] [place], [place] [address]KZBZQUXGVYVTL METABOLIC PANELon 27-63-6290Vgburip [Mass/Vol]2.9 g/dLLow3.2-5.3[facility] [place] HospitalComment on above:Performed By: #### KAYCEE, PINR, 95684-0 #### [facility] ([id number]) [address], [address] [place], [place] [address]NGF [Catalytic activity/Vol]80 U/MUajfuf66-301JlbFqkemi [facility] HospitalComment on above:Performed By: #### KAYCEE PINR, 36102-8 #### [facility] ([id number]) [address], [address] [place], [place] [address]WOP [Catalytic activity/Vol]33 U/LHigh<=31[facility] HospitalComment on above:Performed By: #### KAYCEE PINR, 24740-1 #### [facility] ([id number]) [address], [address] [place], [place] [address]Ikyft gap [Moles/Vol]6 mmol/LNormal5-15ProW[facility]sworth-Ritt[facility] Hospitalca [facility] Comment on above:Performed By: #### KAYCEE PINR, 02669-7 #### [facility] ([id number]) [address], [address] [place], [place] [address]ELV [Catalytic activity/Vol]38 U/LNormal<=41[facility] [place] HospitalComment on above:Performed By: #### KAYCEE PINR, 35875-7 #### [facility] ([id number]) [address], [address] [place], [place] [address]Joafkqzes [Mass/Vol]0.4 mg/dLNormal0.3-1.2[facility] HospitalComment on above:Performed By: #### KAYCEE PINR, 83635-2 #### [facility] ([id number]) [address], [address] [place], [place] [address]Zhfmciy [Mass/Vol]8.1 mg/dLLow8.5-10.5PAs[facility] Comment on above:Performed By: #### KAYCEE, PINR, 13582-1 #### [facility] ([id number]) [address], [address] [place], [place] [address]Modcmpqp [Moles/Vol]107 mmol/LOsuwbk56-481CylPbjshi [facility] HospitalComment on above:Performed By: #### KAYCEE, PINR, 39927-0 #### [facility] ([id number]) [address], [address] [place], [place] [address]YX6 [Moles/Vol]24 mmol/ULokmcp91-38XybWlmvrfKing's Daughters [facility] Center [place] Comment on above:Performed By: #### KEVIN BENOIT, 64217-1 #### [facility] ([id number]) [address] [address] [place], [place] [address]Bzwktmzyyc [Mass/Vol]0.44 mg/dLNormal0.40-1.00[facility] HospitalComment on above:Result Comment: METHOD TRACEABLE TO IDMS STANDARD Performed By: #### KEVIN BENOIT, 06726-8 #### [facility] ([id number]) [address], [address] [place], [place] [address]VPEV (CKD-EPI) NON-RACE DEPENDENT>^90Normal>=60ProPremier Health Miami Valley HospitalComment on above:Result Comment: Reported eGFR is based on the CKD-EPI 2020 equation that does not use a race coefficient.Performed By: #### KEVIN BENOIT, 17205-2 #### [facility] ([id number]) [address] [address] [place], [place] [address]Iwmwphm [Mass/Vol]93 mg/zHDkpisp50-59KuuIoavskMercy Health – The Jewish Hospital Comment on above:Performed By: #### KEVIN BENOIT, 92316-4 #### [facility] ([id number]) [address] [address] [place], [place] [address]Jdtmekjfz [Moles/Vol]3.8 mmol/LNormal3.5-5.0[facility] HospitalComment on above:Performed By: #### KEVIN BENOIT, 89998-2 #### [facility] ([id number]) [address], [address] [place], [place] [address]Ytdbypw [Mass/Vol]5.5 g/dLLow6.0-8.0[facility] Comment on above:Performed By: #### SURENDRA BENOITR, 59107-8 #### [facility] ([id number]) [address], [address] [place], [place] [address]Elbqtf [Moles/Vol]137 mmol/VKsccnu174-262QieMoqedt [facility] HospitalComment on above:Performed By: #### KAYCEE PINR, 34732-9 #### [facility] ([id number]) [address], [address] [place], [place] [address]Urvl nitrogen [Mass/Vol]11 mg/dLNormal5-27[facility] HospitalComment on above:Performed By: #### SURENDRA BENOITR, 37596-8 #### [facility] ([id number]) [address], [address] [place], [place] [address]KQBCLLFWYmc 70-61-4189Ksypfezft [Mass/Vol]1.6 mg/dLLow1.8-2.6 [facility] HospitalComment on above:Performed By: #### SURENDRA BENOITR, 85886-1 #### [facility] ([id number]) [address], [address] [place], [place] [address]COWGJLTZJIwt 00-82-5757Xbldyjdzl [Mass/Vol]3.5 mg/dLNormal 2.4-4.9[facility] HospitalComment on above:Performed By: #### KAYCEE PINR, 21133-6 #### [facility] ([id number]) [address], [address] [place], [place] [address]KOK WITH AUTO DIFFERENTIALon 32-30-7906HYJMYJVQA ABSOLUTE COUNT (10*3/UL) BY AUTOMATED COUNT0.1 10*3/uLNormal0.0-0.2[facility] Comment on above:Performed By: #### KAYCEE, PINR, 37877-5 #### [facility] ([id number]) [address], [address] [place], [place] [address]MGEGGHKLQ RELATIVE PERCENT BY AUTOMATED COUNT0.8 %Normal [facility] HospitalComment on above:Performed By: #### KEVIN BENOIT, 49802-0 #### [facility] ([id number]) [address], [facility] [address] [place] [address]PFXSWJHVLCO DIFFERENTIAL TYPEAUTOMATED DIFFERENTIALNormal [facility] HospitalComment on above:Performed By: #### KEVIN BENOIT, 27084-3 #### [facility] ([id number]) [address], [facility] [address] [place], [place] [address]Gbvglmwujbx (Bld) [#/Vol]0.9 10*3/uLHigh0.0-0.4ProWadsworth-Rittman Hospitalca [facility] HospitalComment on above:Performed By: #### KEVIN BENOIT, 65215-4 #### [facility] ([id number]) [address], [facility] [address] [place], [place] [address]QMVIRUHYGZX RELATIVE PERCENT BY AUTOMATED COUNT8.1 %Normal [facility] HospitalComment on above:Performed By: #### SURENDRA BENOITR, 50278-9 #### [facility] ([id number]) [address], [facility] [address] [place], [place] [address]Ujgwacgqrlg distribution width (RBC) [Ratio]14.4 %Kmybfp16.5-15 [facility] HospitalComment on above:Performed By: #### KAYCEE PINR, 13607-1 #### [facility] ([id number]) [address], [facility] [address] [place], [place] [address]Pfibijtwsp (Bld) [Volume fraction]27.4 %Hgk18-71GvjJqabqu [facility] HospitalComment on above:Performed By: #### CBCDavid, PINR, 23617-6 #### [facility] ([id number]) [address], [address] [place], [place] [address]Cxowpyzwpd (Bld) [Mass/Vol]9.5 g/dLLow11.7-15.5[facility] HospitalComment on above:Performed By: #### CBCA, PINR, 33068-4 #### [facility] ([id number]) [address], [address] [place], [place] [address]TYLIPBBRNWT ABSOLUTE COUNT (10*3/UL) BY AUTOMATED COUNT1.4 10*3/uLNormal1.0-3.5[facility] HospitalComment on above:Performed By: #### CBCA, PINR, 74844-5 #### [facility] ([id number]) [address], [address] [place], [place] [address]FRYIKSRGFRB RELATIVE PERCENT BY AUTOMATED COUNT13.5 %Normal [facility] HospitalComment on above:Performed By: #### CBCA, PINR, 59578-5 #### [facility] ([id number]) [address], [address] [place], [place] [address]KZV (RBC) [Entitic mass]31.8 pqVvvagq16-95TxeSfzwdz [place] HospitalComment on above:Performed By: #### CBCA, PINR, 35447-3 #### [facility] ([id number]) [address], [address] [place], [place] [address]LAIL (RBC) [Mass/Vol]34.6 g/sHPspfpq09-12QbcOyzuop [facility] HospitalComment on above:Performed By: #### CBCA, PINR, 98674-9 #### [facility] ([id number]) [address], [address] [place], [place] [address]RWY (RBC) [Entitic vol]92 cIUlpnkb91-245BzjWgwvee [facility] HospitalComment on above:Performed By: #### CBCA, PINR, 22756-2 #### [facility] ([id number]) [address], [address] [place], [place] [address]PQCMCUZXS ABSOLUTE COUNT (10*3/UL) BY AUTOMATED COUNT0.9 10*3/uL Normal0.0-0.9[facility] HospitalComment on above:Performed By: #### CBCA, PINR, 93320-4 #### [facility] ([id number]) [address], [address] [place], [place] [address]HUFOVQEMD RELATIVE PERCENT BY AUTOMATED COUNT8.6 %Normal [facility] HospitalComment on above:Performed By: #### CBCA, PINR, 27438-5 #### [facility] ([id number]) [address], [address] [place], [place] [address]TJKZMESCSTH ABSOLUTE COUNT BY AUTOMATED COUNT7.3 10*3/uLHigh 1.5-6.6[facility] HospitalComment on above:Performed By: #### CBCA, PINR, 36556-4 #### [facility] ([id number]) [address], [address] [place], [place] [address]JTWCEXLTOKQ RELATIVE PERCENT BY AUTOMATED COUNT69.0 %Normal [facility] HospitalComment on above:Performed By: #### CBCA, PINR, 14671-5 #### [facility] ([id number]) [address], [address] [place], [place] [address]Whgystoj mean volume (Bld) [Entitic vol]8.5 fLNormal7-12 [facility] HospitalComment on above:Performed By: #### CBCA, PINR, 92653-4 #### [facility] ([id number]) [address], [address] [place], [place] [address]Kycyzpwih (Bld) [#/Vol]310 10*3/dVJnascp184-177IzdMvprdu [place] HospitalComment on above:Performed By: #### CBCA, PINR, 06230-2 #### [facility] ([id number]) [address], [address] [place], [place] [address]CQY COUNT2.99 X10E12/LLow3.8-5.2[facility] HospitalComment on above:Performed By: #### SURENDRA BENOITR, 07220-8 #### [facility] ([id number]) [address], [facility] [address] [place], [place] [address]SZQ (Bld) [#/Vol]10.5 10*3/uLNormal4-11[facility] Comment on above:Performed By: #### KEVIN BENOIT, 00846-4 #### [facility] ([id number]) [address], [address] [place] [address]GDFPWZFYLAWCF METABOLIC PANELon 01-85-79[address]Jjilxso [Mass/Vol]2.7 g/dLLow3.2-5.3[facility] HospitalComment on above:Performed By: #### SURENDRA BENOITR, 37480-3 #### [facility] ([id number]) [address], [address] [place] [address]KVN [Catalytic activity/Vol]74 U/EWhztdz22-979UclTmjugp [place] HospitalComment on above:Performed By: #### KAYCEE, PINR, 46978-0 #### [facility] ([id number]) [address], [address] [place], [place] [address]EEI [Catalytic activity/Vol]14 U/LNormal<=31PAs[facility] HospitalComment on above:Performed By: #### KAYCEE, PINR, 47146-3 #### [facility] ([id number]) [address], [address] [place], [place] [address]Wniux gap [Moles/Vol]5 mmol/LNormal5-15[facility] Comment on above:Performed By: #### KAYCEE, PINR, 53397-7 #### [facility] ([id number]) [address], [address] [place], [place] [address]IUP [Catalytic activity/Vol]22 U/LNormal<=41[facility] [place] HospitalComment on above:Performed By: #### KEVIN BENOIT, 85721-2 #### [facility] ([id number]) [address], [address] [place], [place] [address]Jigrfjvyc [Mass/Vol]0.6 mg/dLNormal0.3-1.2PAshtabula [facility] Center HospitalComment on above:Performed By: #### KEVIN BENOIT, 73510-5 #### [facility] ([id number]) [address], [address] [place], [place] [address]Qtwdrbl [Mass/Vol]7.9 mg/dLLow8.5-10.5PKing's Daughters Medical [facility] [place] Comment on above:Performed By: #### KEVIN BENOIT, 15699-4 #### [facility] ([id number]) [address], [address] [place], [place] [address]Hxzesetl [Moles/Vol]106 mmol/AJddosv66-881KflLwjhql [place] HospitalComment on above:Performed By: #### KEVIN BENOIT, 38154-0 #### [facility] ([id number]) [address], [address] [place], [place] [address]OV7 [Moles/Vol]26 mmol/HEwgjgu07-06JujDqufouKing's Daughters [facility] Center [place] Comment on above:Performed By: #### KEVIN BENOIT, 21787-4 #### [facility] ([id number]) [address], [address] [place], [place] [address]Yodnflozha [Mass/Vol]0.47 mg/dLNormal0.40-1.00Pro[facility] HospitalComment on above:Result Comment: METHOD TRACEABLE TO IDMS STANDARD Performed By: #### KEVIN BENOIT, 08983-5 #### [facility] ([id number]) [address], [address] [place], [place] [address]QPMA (CKD-EPI) NON-RACE DEPENDENT>^90Normal>=60Pro[facility] HospitalComment on above:Result Comment: Reported eGFR is based on the CKD-EPI 2020 equation that does not use a race coefficient.Performed By: #### KEVIN BENOIT, 26314-4 #### [facility] ([id number]) [address], [facility] [address] [place], [place] [address]Mlchrar [Mass/Vol]89 mg/jABwpcpd01-06KhkQescmb [facility] Comment on above:Performed By: #### KEVIN BENOIT, 80649-4 #### [facility] ([id number]) [address] [address] [place], [place] [address]Vjlzmzdrq [Moles/Vol]3.6 mmol/LNormal3.5-5.0Pro[facility] HospitalComment on above:Performed By: #### KEVIN BENOIT, 07132-1 #### [facility] ([id number]) [address] [address] [place], [place] [address]Wzlzvek [Mass/Vol]5.1 g/dLLow6.0-8.0[facility] Comment on above:Performed By: #### KEVIN BENOIT, 33125-6 #### [facility] ([id number]) [address] [place], [place] [address]Vabhqt [Moles/Vol]137 mmol/MAolrzn934-700ZzyIrmfhf [place] HospitalComment on above:Performed By: #### KEVIN BENOIT, 07163-2 #### [facility] ([id number]) [address] [facility] [place], [place] [address]Zoxc nitrogen [Mass/Vol]5 mg/dLNormal5-27Pro[facility] HospitalComment on above:Performed By: #### KEVIN BENOIT, 24529-6 #### [facility] ([id number]) [address] [place], [place] [address]XUNRNVAIHmf 08-46-1640Beorxzsdo [Mass/Vol]2.3 mg/dLNormal1.8-2.6 [facility] HospitalComment on above:Performed By: #### KAYCEE PINR, 48114-7 #### [facility] ([id number]) [address], [address] [place], [place] [address]Wzuvwzygj [Mass/Vol]1.6 mg/dLLow1.8-2.6[facility] Comment on above:Performed By: #### SURENDRA BENOITR, 04019-6 #### [facility] ([id number]) [address], [address] [place], [place] [address]AVXTLIETVHee 25-21-0021Spkwkbxqg [Mass/Vol]2.4 mg/dLNormal 2.4-4.9ProPrem[facility] HospitalComment on above:Performed By: #### KAYCEE PINR, 64527-2 #### [facility] ([id number]) [address], [address] [place], [place] [address]X DIFFICILE BY PCRon [id number] PRL3VxzcluukFyalasTgrpngbwith NegativeProPremier Health Miami Valley HospitalComment on above:Result Comment: Assay methodology is nucleic acid amplification by real-time PCR for detection of C. difficile toxin gene sequences performed on 2[employer] Instrument System. Performed By: #### KAYCEE PINR, 97985-8 #### [facility] ([id number]) [address], [address] [place], [place] [address]SKZMKVVXV C DIFFNegativeNormalNegativeMer[facility] Health – [facility] Comment on above:Performed By: #### CBCDavid, PINR, 32877-1 #### [facility] ([id number]) [address] [place], [place] [address]JYU WITH AUTO DIFFERENTIALon [id number] ABSOLUTE COUNT (10*3/UL) BY AUTOMATED COUNT0.1 10*3/uLNormal0.0-0.2PSt. [facility]amm[facility] Comment on above:Performed By: #### CBCA, PINR, 18501-7 #### [facility] ([id number]) [address], [address] [place], [place] [address]RUKXBCZEV RELATIVE PERCENT BY AUTOMATED COUNT0.4 %Normal [facility] HospitalComment on above:Performed By: #### CBCA, PINR, 79161-6 #### [facility] ([id number]) [address], [address] [place], [place] [address]BOTBKPHYNXJ DIFFERENTIAL TYPEAUTOMATED DIFFERENTIALNormal [facility] HospitalComment on above:Performed By: #### CBCA, PINR, 51759-3 #### [facility] ([id number]) [address], [address] [place], [place] [address]Qghvsjszizh (Bld) [#/Vol]0.9 10*3/uLHigh0.0-0.4[facility] HospitalComment on above:Performed By: #### CBCA, PINR, 97887-7 #### [facility] ([id number]) [address], [address] [place], [place] [address]DWVEMQIJHDB RELATIVE PERCENT BY AUTOMATED COUNT6.5 %Normal [facility] HospitalComment on above:Performed By: #### CBCA, PINR, 12276-4 #### [facility] ([id number]) [address], [address] [place], [place] [address]Rtcylcvyrrw distribution width (RBC) [Ratio]14.3 %Jbkxvb56.5-15 [facility] HospitalComment on above:Performed By: #### CBCA, PINR, 33952-8 #### [facility] ([id number]) [address], [address] [place], [place] [address]Uffkoythsp (Bld) [Volume fraction]27.4 %Ggt50-91KkeDhctuw [facility]ñone[facility] HospitalComment on above:Performed By: #### CBCA, PINR, 44115-9 #### [facility] ([id number]) [address], [address] [place], [place] [address]Yttgtpdyxu (Bld) [Mass/Vol]9.3 g/dLLow11.7-15.5[facility] HospitalComment on above:Performed By: #### CBCA, PINR, 69126-0 #### [facility] ([id number]) [address] [place], [place] [address]MJVGPVTXRQK ABSOLUTE COUNT (10*3/UL) BY AUTOMATED COUNT1.5 10*3/uLNormal1.0-3.5[facility] HospitalComment on above:Performed By: #### CBCA, PINR, 17168-0 #### [facility] ([id number]) [address], [address] [place], [place] [address]JJRUYHLDHUY RELATIVE PERCENT BY AUTOMATED COUNT11.0 %Normal [facility] HospitalComment on above:Performed By: #### CBCA, PINR, 68966-6 #### [facility] ([id number]) [address], [address] [place], [place] [address]GEG (RBC) [Entitic mass]31.1 piNgcfug60-09EhmIduvub [place] HospitalComment on above:Performed By: #### CBCA, PINR, 07186-2 #### [facility] ([id number]) [address], [address] [place], [place] [address]EDPK (RBC) [Mass/Vol]34.0 g/cQCnuzrs20-32KsoAuzxvm [facility] HospitalComment on above:Performed By: #### CBCA, PINR, 37247-0 #### [facility] ([id number]) [address], [address] [place] [address]JKG (RBC) [Entitic vol]91 fNGicbvb96-831EyfOycamt [facility] HospitalComment on above:Performed By: #### CBCA, PINR, 05294-7 #### [facility] ([id number]) [address], [address] [place] [address]CFWWLSCIE ABSOLUTE COUNT (10*3/UL) BY AUTOMATED COUNT1.0 10*3/uL High0.0-0.9[facility] HospitalComment on above:Performed By: #### CBCA, PINR, 57902-5 #### [facility] ([id number]) [address], [address] [place] [address]GTIPPWFTG RELATIVE PERCENT BY AUTOMATED COUNT7.4 %Normal [facility] HospitalComment on above:Performed By: #### CBCA, PINR, 15052-4 #### [facility] ([id number]) [address], [address] [place] [address]KCKIWLUBTDG ABSOLUTE COUNT BY AUTOMATED COUNT10.3 10*3/uLHigh 1.5-6.6[facility] HospitalComment on above:Performed By: #### CBCA, PINR, 80010-1 #### [facility] ([id number]) [address], [address] [place] [address]SAVEMCLBELW RELATIVE PERCENT BY AUTOMATED COUNT74.7 %Normal [facility] HospitalComment on above:Performed By: #### CBCA, PINR, 49745-3 #### [facility] ([id number]) [address], [address] [place], [place] [address]Rjfqpkyb mean volume (Bld) [Entitic vol]8.3 fLNormal7-12 [facility] HospitalComment on above:Performed By: #### CBCA, PINR, 85025-3 #### [facility] ([id number]) [address], [address] [place], [place] [address]Hyrjviwxz (Bld) [#/Vol]328 10*3/wIShxdbc976-134QknQapzmw [facility] HospitalComment on above:Performed By: #### KEVIN BENOIT, 59762-3 #### [facility] ([id number]) [address], [address] [place] [address]ZNT COUNT3.00 X10E12/LLow3.8-5.2[facility] HospitalComment on above:Performed By: #### KAYCEE PINR, 97083-7 #### [facility] ([id number]) [address], [address] [place], [place] [address]IGW (Bld) [#/Vol]13.8 10*3/uLHigh4-11[facility] Comment on above:Performed By: #### SURENDRA BENOITR, 40683-6 #### [facility] ([id number]) [address], [address] [place], [place] [address]VRZUBLWRQYFAP METABOLIC PANELon 52-45-0984Cjdfqqq [Mass/Vol]2.8 g/dLLow3.2-5.3[facility] HospitalComment on above:Performed By: #### KAYCEE PINR, 91264-6 #### [facility] ([id number]) [address], [address] [place], [place] [address]VDO [Catalytic activity/Vol]72 U/THbtsjs90-878TntGlrlxc [facility] HospitalComment on above:Performed By: #### KAYCEE, PINR, 80093-7 #### [facility] ([id number]) [address], [address] [place], [place] [address]TGA [Catalytic activity/Vol]7 U/LNormal<=31[facility] HospitalComment on above:Performed By: #### KAYCEE, PINR, 83179-6 #### [facility] ([id number]) [address], [address] [place], [place] [address]Ewknv gap [Moles/Vol]3 mmol/LLow5-15[facility] Comment on above:Performed By: #### KEVIN BENOIT, 52667-0 #### [facility] ([id number]) [address], [address] [place], [place] [address]ONE [Catalytic activity/Vol]15 U/LNormal<=41Pro[facility] HospitalComment on above:Performed By: #### KEVIN BENOIT, 22967-7 #### [facility] ([id number]) [address], [address] [place], [place] [address]Whlwfcxfl [Mass/Vol]0.7 mg/dLNormal0.3-1.2PKing's Daughters [facility] Center OhioComment on above:Performed By: #### KEVIN BENOIT, 38153-2 #### [facility] ([id number]) [address], [address] [place], [place] [address]Pmvcwep [Mass/Vol]7.9 mg/dLLow8.5-10.5PKing's [facility]aughters [facility] [place] Comment on above:Performed By: #### KEVIN BENOIT, 88960-8 #### [facility] ([id number]) [address], [address] [place], [place] [address]Garkpfsw [Moles/Vol]107 mmol/BAarvdt02-522NilAzwpqq [place] HospitalComment on above:Performed By: #### KEVIN BENOIT, 73124-3 #### [facility] ([id number]) [address], [address] [place], [place] [address]TN3 [Moles/Vol]28 mmol/HZhzlfd91-09ApkTkaeqpKing's Daughters [facility] [place] Comment on above:Performed By: #### KEVIN BENOIT, 98795-6 #### [facility] ([id number]) [address], [address] [place], [place] [address]Cmhfdwzfiy [Mass/Vol]0.48 mg/dLNormal0.40-1.00ProPrem[facility] HospitalComment on above:Result Comment: METHOD TRACEABLE TO IDMS STANDARD Performed By: #### KEVIN BENOIT, 66790-6 #### [facility] ([id number]) [address], [address] [place], [place] [address]RLXP (CKD-EPI) NON-RACE DEPENDENT>^90Normal>=60Pro[facility] HospitalComment on above:Result Comment: Reported eGFR is based on the CKD-EPI 2020 equation that does not use a race coefficient.Performed By: #### KEVIN BENOIT, 18798-2 #### [facility] ([id number]) [address], [address] [place], [place] [address]Guxgclx [Mass/Vol]96 mg/jSTqvqdb16-59PksCyglxy [facility] Comment on above:Performed By: #### KEVIN BENOIT, 52404-8 #### [facility] ([id number]) [address], [address] [place], [place] [address]Ayqtosncx [Moles/Vol]4.2 mmol/LNormal3.5-5.0ProPrem[facility] HospitalComment on above:Performed By: #### KEVIN BENOIT, 41646-4 #### [facility] ([id number]) [address], [address] [place], [place] [address]Xzgqdzi [Mass/Vol]5.3 g/dLLow6.0-8.0[facility] Comment on above:Performed By: #### KEVIN BENOIT, 04425-9 #### [facility] ([id number]) [address], [address] [place], [place] [address]Scgejr [Moles/Vol]138 mmol/MBtvmaw396-735CipLelqeb [place] HospitalComment on above:Performed By: #### KEVIN BENOIT, 35944-4 #### [facility] ([id number]) [address], [address] [place], [place] [address]Yhkr nitrogen [Mass/Vol]9 mg/dLNormal5-27[facility] HospitalComment on above:Performed By: #### CBCA, PINR, 13844-9 #### [facility] ([id number]) [address], [address] [place], [place] [address]SZ ABDOMEN AND PELVIS W CONTon 79-87-4686JA ABDOMEN AND PELVIS W CONTCT ABDOMEN AND PELVIS W CONT EXAM: ABDOMEN AND PELVIS CT WITH CONTRAST CLINICAL INFORMATION: assess diverticulitis. TECHNIQUE: CT abdomen and pelvis was performed utilizing 5 mm axial reconstructions following the uneventful administration of nonionic intravenous contrast. Coronal and sagittal reformatted images as well as delayed excretory phase images were obtained and reviewed. Automated exposure control was u tilized. COMPARISON: 09/12/2024 FINDINGS: The limited visualized lung bases demonstrate trace amounts of pleural fluid with minimal bibasilaratelectasis. The liver is unremarkable. The gallbladder is present. The spleen is normal. The pancreas is unremarkable. The right kidney is normal. The left kidney is normal. The adrenals are unremarkable. There is contrast within the nondilated colon from recent modified barium swallow examination. There is noevidence of bowel obstruction. There are no dilated [...] by Paras Nixon MD on 09/16/2024 2:53 PMNormalProMedica [facility] IONIZED CALCIUMon 19-92-3293BTPWVQC CALCIUM - ICAN4.5 mg/dLNormal4.5-5.3 [facility] HospitalComment on above:Performed By: #### KEVIN BENOIT, 91280-8 #### [facility] ([id number]) [address], [address] [place], [place] [address]CDWQVGRXLzm 61-56-5405Kxaitugyb [Mass/Vol]1.9 mg/dLNormal1.8-2.6 [facility] HospitalComment on above:Performed By: #### KEVIN BENOIT, 75705-4 #### [facility] ([id number]) [address], [address] [place], [place] [address]OUFTQMHQQFxl 90-43-2797Miadlncnq [Mass/Vol]1.5 mg/dLLow2.4-4.9 [facility] HospitalComment on above:Performed By: #### KEVIN BENOIT, 91634-4 #### [facility] ([id number]) [address], [address] [place], [place] [address]TGQ WITH AUTO DIFFERENTIALon 17-10-4154CZHQPEZMJ ABSOLUTE COUNT (10*3/UL) BY AUTOMATED COUNT0.1 10*3/uLNormal0.0-0.2PKing's Daughters [facility] [place] Comment on above:Performed By: #### KEVIN BENOIT, 25173-4 #### [facility] ([id number]) [address], [address] [place], [place] [address]HFPVPGKRW RELATIVE PERCENT BY AUTOMATED COUNT0.3 %Normal [facility] HospitalComment on above:Performed By: #### SURENDRA BENOITR, 75268-6 #### [facility] ([id number]) [address], [address] [place], [place] [address]SUAVXOWXQRG DIFFERENTIAL TYPEAUTOMATED DIFFERENTIALNormal [facility] HospitalComment on above:Performed By: #### CBCDavid, PINR, 10118-6 #### [facility] ([id number]) [address], [address] [place], [place] [address]Hiltgyxyyex (Bld) [#/Vol]0.4 10*3/uLNormal0.0-0.4[facility] [place] HospitalComment on above:Performed By: #### CBCDavid, PINR, 85876-6 #### [facility] ([id number]) [address], [address] [place], [place] [address]ZUQBWGIWSRA RELATIVE PERCENT BY AUTOMATED COUNT2.2 %Normal [facility] HospitalComment on above:Performed By: #### CBCDavid, PINR, 94713-3 #### [facility] ([id number]) [address], [address] [place], [place] [address]Musdxtkhksk distribution width (RBC) [Ratio]14.5 %Xzjqnl88.5-15 [facility] hospitala [place] HospitalComment on above:Performed By: #### CBCDavid, PINR, 68224-8 #### [facility] ([id number]) [address], [address] [place], [place] [address]Hssrthoskj (Bld) [Volume fraction]28.6 %Dan06-91ZuvNuxhjy [place] HospitalComment on above:Performed By: #### CBCDavid, PINR, 25178-9 #### [facility] ([id number]) [address], [address] [place], [place] [address]Ovgwqaafkq (Bld) [Mass/Vol]9.8 g/dLLow11.7-15.5[facility] [place] HospitalComment on above:Performed By: #### CBCA, PINR, 01635-1 #### [facility] ([id number]) [address], [address] [place], [place] [address]JWKTXCRJVBL ABSOLUTE COUNT (10*3/UL) BY AUTOMATED COUNT1.8 10*3/uLNormal1.0-3.5[facility] [place] HospitalComment on above:Performed By: #### CBCA, PINR, 81843-4 #### [facility] ([id number]) [address], [facility] [address] [place], [place] [address]KWGLEGCBNQO RELATIVE PERCENT BY AUTOMATED COUNT8.8 %Normal [facility] HospitalComment on above:Performed By: #### CBCA, PINR, 82839-0 #### [facility] ([id number]) [address], [facility] [address] [place], [place] [address]YAG (RBC) [Entitic mass]31.1 cqMptpte79-03MdhKsxpdy [place] HospitalComment on above:Performed By: #### CBCA, PINR, 42526-4 #### [facility] ([id number]) [address], [address] [place], [place] [address]UZNS (RBC) [Mass/Vol]34.2 g/iQBveshz78-32XwzYolqxa [place] HospitalComment on above:Performed By: #### CBCA, PINR, 49835-7 #### [facility] ([id number]) [address], [facility] [address] [place], [place] [address]TDD (RBC) [Entitic vol]91 sJCrdzri57-290KzlHcyxbw [place] HospitalComment on above:Performed By: #### CBCA, PINR, 01941-1 #### [facility] ([id number]) [address], [address] [place], [place] [address]LADTPMJGP ABSOLUTE COUNT (10*3/UL) BY AUTOMATED COUNT1.2 10*3/uL High0.0-0.9[facility] HospitalComment on above:Performed By: #### CBCA, PINR, 11393-1 #### [facility] ([id number]) [address], [address] [place], [place] [address]AOOSSKPOQ RELATIVE PERCENT BY AUTOMATED COUNT6.1 %Normal [facility] [place] HospitalComment on above:Performed By: #### CBCA, PINR, 83628-3 #### [facility] ([id number]) [address], [address] [place] [address]DBCBFICAZZE ABSOLUTE COUNT BY AUTOMATED COUNT16.8 10*3/uLHigh 1.5-6.6[facility] HospitalComment on above:Performed By: #### CBCA, PINR, 49175-2 #### [facility] ([id number]) [address], [address] [place] [address]BPQLOOZTICO RELATIVE PERCENT BY AUTOMATED COUNT82.6 %Normal [facility] HospitalComment on above:Performed By: #### CBCA, PINR, 32204-1 #### [facility] ([id number]) [address], [address] [place] [address]Ozwlgjkh mean volume (Bld) [Entitic vol]8.1 fLNormal7-12 [facility] HospitalComment on above:Performed By: #### CBCA, PINR, 61186-0 #### [facility] ([id number]) [address], [address] [place] [address]Plinpvjns (Bld) [#/Vol]329 10*3/lXQoleos446-974QwpLhjczx [place] HospitalComment on above:Performed By: #### CBCA, PINR, 46912-2 #### [facility] ([id number]) [address], [address] [place] [address]OGU COUNT3.15 X10E12/LLow3.8-5.2[facility] HospitalComment on above:Performed By: #### CBCA, PINR, 33675-3 #### [facility] ([id number]) [address], [address] [place], [place] [address]MTQ (Bld) [#/Vol]20.3 10*3/uLHigh4-11[facility] Comment on above:Performed By: #### KEVIN BENOIT, 79351-5 #### [facility] ([id number]) [address], [address] [place], [place] [address]INQWUAVESTVPU METABOLIC PANELon 36-30-3577Ucgmsra [Mass/Vol]3.1 g/dLLow3.2-5.3[facility] HospitalComment on above:Performed By: #### KEVIN BENOIT, 93980-9 #### [facility] ([id number]) [address], [address] [place], [place] [address]QDZ [Catalytic activity/Vol]76 U/CMmxfbd62-994KhdTcjgwm [place] HospitalComment on above:Performed By: #### KEVIN BENOIT, 25695-4 #### [facility] ([id number]) [address], [address] [place], [place] [address]VHB [Catalytic activity/Vol]8 U/LNormal<=31[facility] HospitalComment on above:Performed By: #### SURENDRA BENOITR, 68642-5 #### [facility] ([id number]) [address], [address] [place], [place] [address]Jxtof gap [Moles/Vol]3 mmol/LLow5-15[facility] Comment on above:Performed By: #### KAYCEE PINR, 81850-7 #### [facility] ([id number]) [address], [address] [place], [place] [address]JPS [Catalytic activity/Vol]12 U/LNormal<=41[facility] HospitalComment on above:Performed By: #### KAYCEE, PINR, 54778-4 #### [facility] ([id number]) [address], [address] [place], [place] [address]Ykjvwxtyl [Mass/Vol]0.7 mg/dLNormal0.3-1.2PKing's Daughters [facility] Center OhioComment on above:Performed By: #### KEVIN BENOIT, 89693-0 #### [facility] ([id number]) [address], [address] [place], [place] [address]Jeqkfox [Mass/Vol]7.9 mg/dLLow8.5-10.5PKing[facility] [place] Comment on above:Performed By: #### KEVIN BENOIT, 38055-4 #### [facility] ([id number]) [address], [address] [place], [place] [address]Qoglzdya [Moles/Vol]104 mmol/TMvoegx25-990GquDhobfz [place] HospitalComment on above:Performed By: #### KEVIN BENOIT, 32951-9 #### [facility] ([id number]) [address], [address] [place], [place] [address]YV2 [Moles/Vol]34 mmol/BZifg76-76BzmLzvvwuKing's Daughters [facility] [place] Comment on above:Performed By: #### KEVIN BENOIT, 52424-9 #### [facility] ([id number]) [address], [address] [place], [place] [address]Rqjtafkcqz [Mass/Vol]0.63 mg/dLNormal0.40-1.00Pro[facility] HospitalComment on above:Result Comment: METHOD TRACEABLE TO IDMS STANDARD Performed By: #### KEVIN BENOIT, 25458-1 #### [facility] ([id number]) [address], [address] [place], [place] [address]YZUW (CKD-EPI) NON-RACE DEPENDENT>^90Normal>=60Pro[facility] HospitalComment on above:Result Comment: Reported eGFR is based on the CKD-EPI 2020 equation that does not use a race coefficient.Performed By: #### KEVIN BENOIT, 62662-9 #### [facility] ([id number]) [address], [address] [place], [place] [address]Mowkrtg [Mass/Vol]116 mg/tEOplx68-07RluBytiyePremier Health [facility] Hospital Comment on above:Performed By: #### KEVIN BENOIT, 48644-7 #### [facility] ([id number]) [address], [address] [place], [place] [address]Icktakbbd [Moles/Vol]3.6 mmol/LNormal3.5-5.0ProW[facility] Hospitalca [place] HospitalComment on above:Performed By: #### KEVIN BENOIT, 75303-9 #### [facility] ([id number]) [address], [address] [place], [place] [address]Srabvgj [Mass/Vol]5.7 g/dLLow6.0-8.0[facility] Comment on above:Performed By: #### KEVIN BENOIT, 58591-2 #### [facility] ([id number]) [address], [address] [place], [place] [address]Bkrpyn [Moles/Vol]141 mmol/CNcwbfj284-728WojNmtsjr [place] HospitalComment on above:Performed By: #### KEVIN BENOIT, 17714-8 #### [facility] ([id number]) [address], [address] [place], [place] [address]Hceu nitrogen [Mass/Vol]26 mg/dLNormal5-27[facility] HospitalComment on above:Performed By: #### SURENDRA BENOITR, 91233-7 #### [facility] ([id number]) [address], [address] [place], [place] [address]LJWCJVE CALCIUMon 40-21-7910HWEZHFL CALCIUM - ICAN4.6 mg/dL Normal4.5-5.3[facility] HospitalComment on above:Performed By: #### KEVIN BENOIT, 55221-5 #### [facility] ([id number]) [address], [address] [place], [place] [address]XDBRGTU CALCIUM - ICAN4.4 mg/dLLow4.5-5.3[facility] HospitalComment on above:Performed By: #### KEVIN BENOIT, 36620-2 #### [facility] ([id number]) [address], [address] [place], [place] [address]BRGUUJTSDbt 78-00-0290Rsrgfkqci [Mass/Vol]2.8 mg/dLHigh1.8-2.6 [facility] HospitalComment on above:Performed By: #### KEVIN BENOIT, 09231-7 #### [facility] ([id number]) [address], [address] [place], [place] [address]DFDWJHTOJOge 11-98-5444Zgvslaqke [Mass/Vol]1.4 mg/dLLow2.4-4.9 [facility] HospitalComment on above:Performed By: #### KEVIN BENOIT, 39356-5 #### [facility] ([id number]) [address], [address] [place], [place] [address]ZIBKOOBTCqx 60-19-7541Rfcwbdgsr [Moles/Vol]3.8 mmol/LNormal 3.5-5.0[facility] HospitalComment on above:Performed By: #### KEVIN BENOIT, 61607-7 #### [facility] ([id number]) [address], [address] [place], [place] [address]Iqjzmrdyd [Moles/Vol]3.8 mmol/LNormal3.5-5.0[facility] HospitalComment on above:Performed By: #### KEVIN BENOIT, 32225-7 #### [facility] ([id number]) [address], [address] [place], [place] [address]FDH SCREEN W/ REFLEXon 87-20-8183IXH SCREEN W/REFLEXNegative NormalNegativeProMedica Palmyra HospitalComment on above:Order Comment: Testing performed using multiplex flow immunoassay. Eleven difference antigens associ ated with systemic autoimmunie diseases (dsDNA, Sm, Sm/RAIL CAR WELDER, RAIL CAR WELDER, Chromatin, SSA, SSB, Niurka-1, Sc170, Ribo P, Centromere B) are included in this sreening tests. Performed By: #### KAYCEE PINR, 15756-1 #### [facility] ([id number]) [address] [address]AGXJ-HYZNS ANTIBODY IGGon 47-69-7911COCL-RAYMOND AB IGG<^0.2Normal <1.0ProPrem[facility] HospitalComment on above:Performed By: #### SURENDRA BENOITR, 70058-2 #### [facility] ([id number]) [address] [address]VWS WITH AUTO DIFFERENTIALon 04-61-7572RENQIMRFX ABSOLUTE COUNT (10*3/UL) BY AUTOMATED COUNT0.0 10*3/uLNormal0.0-0.2PKing[facility] [place] Comment on above:Performed By: #### KAYCEE PINR, 21821-7 #### [facility] ([id number]) [address] [address]DBAGGDMOM RELATIVE PERCENT BY AUTOMATED COUNT0.2 %Normal ProMKettering Health Behavioral Medical CenterComment on above:Performed By: #### KAYCEE PINR, 57148-1 #### [facility] ([id number]) [address] [address]BMDJPNCFFGH DIFFERENTIAL TYPEAUTOMATED DIFFERENTIALNormal ProMKettering Health Behavioral Medical CenterComment on above:Performed By: #### KAYCEE PINR, 51140-2 #### [facility] ([id number]) [address] [address]Zznqvgsggir (Bld) [#/Vol]0.1 10*3/uLNormal0.0-0.4Pro[facility] HospitalComment on above:Performed By: #### CBCA, PINR, 37451-8 #### [facility] ([id number]) [address], [address] [place], [place] [address]OVPDFJEFQVA RELATIVE PERCENT BY AUTOMATED COUNT0.6 %Normal [facility] HospitalComment on above:Performed By: #### CBCDavid, PINR, 32046-4 #### [facility] ([id number]) [address], [address] [place], [place] [address]Sxsjsoyrncu distribution width (RBC) [Ratio]14.9 %Sxngrj92.5-15 [facility] HospitalComment on above:Performed By: #### CBCDavid, PINR, 48140-3 #### [facility] ([id number]) [address], [address] [place], [place] [address]Rexfbdeqno (Bld) [Volume fraction]29.7 %Asy03-40MypPrrutn [place] HospitalComment on above:Performed By: #### CBCDavid, PINR, 60393-0 #### [facility] ([id number]) [address], [address] [place], [place] [address]Arzzjvzvac (Bld) [Mass/Vol]10.3 g/dLLow11.7-15.5[facility] HospitalComment on above:Performed By: #### CBCDavid, PINR, 51577-4 #### [facility] ([id number]) [address], [address] [place], [place] [address]LQGIVJRDEOE ABSOLUTE COUNT (10*3/UL) BY AUTOMATED COUNT1.2 10*3/uLNormal1.0-3.5PAs[facility] HospitalComment on above:Performed By: #### CBCA, PINR, 57777-4 #### [facility] ([id number]) [address], [address] [place], [place] [address]XYICSJOABJC RELATIVE PERCENT BY AUTOMATED COUNT5.5 %Normal [facility] HospitalComment on above:Performed By: #### CBCA, PINR, 24803-9 #### [facility] ([id number]) [address], [address] [place], [place] [address]XIR (RBC) [Entitic mass]31.0 sqTctryx25-90XrvXvkbrb [place] HospitalComment on above:Performed By: #### CBCA, PINR, 71235-5 #### [facility] ([id number]) [address], [address] [place], [place] [address]VCGJ (RBC) [Mass/Vol]34.6 g/sLCwjety81-41QzfPmdtht [place] HospitalComment on above:Performed By: #### CBCA, PINR, 29058-8 #### [facility] ([id number]) [address], [address] [place], [place] [address]IRQ (RBC) [Entitic vol]90 eEBofiuo49-252AimRrpfpv [facility] HospitalComment on above:Performed By: #### CBCA, PINR, 51116-8 #### [facility] ([id number]) [address], [address] [place], [place] [address]JOHKWEIQH ABSOLUTE COUNT (10*3/UL) BY AUTOMATED COUNT1.2 10*3/uL High0.0-0.9[facility] HospitalComment on above:Performed By: #### CBCA, PINR, 98427-0 #### [facility] ([id number]) [address], [address] [place], [place] [address]BKGHOBIJN RELATIVE PERCENT BY AUTOMATED COUNT5.4 %Normal [facility] HospitalComment on above:Performed By: #### CBCA, PINR, 36510-9 #### [facility] ([id number]) [address], [address] [place], [place] [address]YKCCWWKIEXR ABSOLUTE COUNT BY AUTOMATED COUNT19.7 10*3/uLHigh 1.5-6.6[facility] HospitalComment on above:Performed By: #### CBCDavid, PINR, 27445-8 #### [facility] ([id number]) [address], [address] [place] [address]LHHEZGORDAK RELATIVE PERCENT BY AUTOMATED COUNT88.3 %Normal [facility] HospitalComment on above:Performed By: #### CBCDavid, PINR, 97498-1 #### [facility] ([id number]) [address], [address] [place] [address]Jwtdthjt mean volume (Bld) [Entitic vol]8.2 fLNormal7-12 [facility] HospitalComment on above:Performed By: #### KAYCEE, PINR, 71404-7 #### [facility] ([id number]) [address], [address] [place], [place] [address]Wanrsikfl (Bld) [#/Vol]283 10*3/aSGpcomo714-346QcnCypueh [place] HospitalComment on above:Performed By: #### KAYCEE, PINR, 43900-5 #### [facility] ([id number]) [address], [address] [place], [place] [address]HBV COUNT3.32 X10E12/LLow3.8-5.2[facility] [place] HospitalComment on above:Performed By: #### KAYCEE, PINR, 13376-0 #### [facility] ([id number]) [address], [address] [place], [place] [address]RFZ (Bld) [#/Vol]22.3 10*3/uLHigh4-11[facility] [place] [facility] Comment on above:Performed By: #### KAYCEE, PINR, 09424-5 #### [facility] ([id number]) [address], [address] [place], [place] [address]FNHOHUEWKK PROFILE (C3 AND C4)on 93-62-7250VWKGYULKKK C3102 mg/uUYrqnru94-604XeoKhyhnt [place] HospitalComment on above:Performed By: #### KEVIN BENOIT, 69400-1 #### [facility] ([id number]) [address], [address] [place], [place] [address]BACRKWDNAX C420 mg/rJWikqmd04-31GbnZwdvha Quiñonez HospitalComment on above:Performed By: #### KEVIN BENOIT, 13913-7 #### [facility] ([id number]) [address], [address] [place], [place] [address]VKDNAEWGMAVBD METABOLIC PANELon 30-27-5200Znlsjsa [Mass/Vol]3.1 g/dLLow3.2-5.3[facility]ñonez HospitalComment on above:Performed By: #### KEVIN BENOIT, 42321-8 #### [facility] ([id number]) [address], [address] [place], [place] [address]ZTN [Catalytic activity/Vol]72 U/DAhijtm98-663HfrNzunov [facility]ñonez HospitalComment on above:Performed By: #### KEVIN BENOIT, 49965-7 #### [facility] ([id number]) [address], [address] [place], [place] [address]KTC [Catalytic activity/Vol]8 U/LNormal<=31[facility]ñonez HospitalComment on above:Performed By: #### KEVIN BENOIT, 92379-4 #### [facility] ([id number]) [address], [address] [place], [place] [address]Tlrwy gap [Moles/Vol]10 mmol/LNormal5-15[facility]z HospitalComment on above:Performed By: #### KEVIN BENOIT, 29546-7 #### [facility] ([id number]) [address], [address] [place], [place] [address]PYN [Catalytic activity/Vol]14 U/LNormal<=41[facility]z HospitalComment on above:Performed By: #### KEVIN BENOIT, 16154-6 #### [facility] ([id number]) [address], [address] [place], [place] [address]Naqvnwtcc [Mass/Vol]0.5 mg/dLNormal0.3-1.2PKing's Daughters Medical Center OhioComment on above:Performed By: #### KEVIN BENOIT, 20777-1 #### [facility] ([id number]) [address], [address] [place], [place] [address]Slioyif [Mass/Vol]6.9 mg/dLCritically low8.5-10.5PKing's Daughters Medical Center OhioComment on above:Performed By: #### KEVIN BENOIT, 69137-8 #### [facility] ([id number]) [address], [address] [place], [place] [address]Kvdglnhe [Moles/Vol]95 mmol/ICjp24-220LgpVjdrzeMercy Health – [facility] Hospital Comment on above:Performed By: #### KEVIN BENOIT, 15714-3 #### [facility] ([id number]) [address], [address] [place], [place] [address]RF2 [Moles/Vol]32 mmol/QMesveg88-34KzvCdrsxyKing's Daughters Medical Center [place] Comment on above:Performed By: #### KEVIN BENOIT, 91932-5 #### [facility] ([id number]) [address], [address] [place], [place] [address]Hsozdafizm [Mass/Vol]1.15 mg/dLHigh0.40-1.00ProPremier Health Miami Valley HospitalComment on above:Result Comment: METHOD TRACEABLE TO IDMS STANDARD Performed By: #### KEVIN BENOIT, 86191-6 #### [facility] ([id number]) [address], [address] [place], [place] [address]DOO/1.73 sq M.predicted among non-blacks MDRD (S/P/Bld) [Vol rate/Area]54 mL/min/{1.73_m2}Low>=60Pro[facility] HospitalComment on above: Result Comment: Reported eGFR is based on the CKD-EPI 2020 equation that does not use a race coefficient.Performed By: #### KEVIN BENOIT, 85270-0 #### [facility] ([id number]) [address], [address] [place], [place] [address]Wbmokdz [Mass/Vol]161 mg/dLEkex25-77NdjKrzmnsPremier Health [facility] Hospital Comment on above:Performed By: #### KEVIN BENOIT, 89768-9 #### [facility] ([id number]) [address], [address] [place], [place] [address]Nucibrxvo [Moles/Vol]2.8 mmol/LLow3.5-5.0ProPremier Health Miami Valley HospitalComment on above:Performed By: #### KEVIN BENOIT, 57861-7 #### [facility] ([id number]) [address], [address] [place], [place] [address]Davnyoc [Mass/Vol]5.7 g/dLLow6.0-8.0[facility] Comment on above:Performed By: #### KEVIN BENOIT, 83313-3 #### [facility] ([id number]) [address], [address] [place], [place] [address]Ltnnib [Moles/Vol]137 mmol/LNnggtv256-508ZhgPgrbbp [place] HospitalComment on above:Performed By: #### KEVIN BENOIT, 87419-2 #### [facility] ([id number]) [address], [address] [place], [place] [address]Tjfs nitrogen [Mass/Vol]79 mg/dLHigh5-27Pro[facility] HospitalComment on above:Performed By: #### KEVIN BENOIT, 16642-0 #### [facility] ([id number]) [address], [address] [place], [place] [address]DSJQDUKLTVZ NEUTROPHILIC AB (ANCA), Son 27-28-4055R-ANCANegative NormalNegativeProMedica Palmyra HospitalComment on above:Performed By: #### KEVIN BENOIT, 06978-4 #### [facility] ([id number]) [address] [facility], [address] [place], [place] [address]C-EXGUEwgjldwiVxzyhuFqqlhiybMqnLnbcwz [facility]myra HospitalComment on above:Result Comment: Negative for cANCA and pANCA patterns by immunofluorescence. ADDITIONAL INFORMATION This test was developed and its performance characteristics determined by [facility] in a manner consistent with CLIA requirements. This test has not been cleared or approved by the U.S. Food and Drug Administration. Test Performed by: [facility] [address] [place] [address] Cleaning Matron: Ester Macdonald Ph.D.; CLIA# [id number] By: #### KEVIN BENOIT, 63752-3 #### [facility] ([id number]) [address] [facility] [facility] [address] [place], [place] [address]MYYSLALFRD BASEMENT MEMBRANE IGG ABon 84-84-9447ILJ IGG AB<^0.2 Normal<1.0ProWadsworth-Rittman Hospitalca [facility] Memorial HospitalComment on above:Performed By: #### KEVIN BENOIT, 71834-0 #### [facility] ([id number]) [address] [facility], [address] [place], [place] [address]EORNZSRSZ B SURFACE ANTIBODY QUANTITATIONon 11-02-0287LWWC HBS QUANT.<^3.0NormalProMedica Palmyra HospitalComment on above:Order Comment: Vaccinated: >=10 mIU/mL, Positive (Immune)Unvaccinated: <10 mIU/mL, Negative (N ot Immune)Performed By: #### KAYCEE, SURENDRAR, 77235-0 #### [facility] ([id number]) [address], [address] [place], [place] [address]KYUNYKVNF B SURFACE ANTIGENon 88-12-5871JXYFCYCGC B SURF AG Hec-NaaztdavDbigtnKfu-BukajdawOmkLlgsbl [place] HospitalComment on above: Performed By: #### KEVIN BENOIT, 71210-0 #### [facility] ([id number]) [address], [address] [place], [place] [address]TCTEWDBGA C(HCV) ANTIBODY W/REFLEX TO PCRon 85-15-1150GAWL HCV W/PCR FVTUIYpy-BbjllrusUnbbasGsl-KrbbruvcOpaLjufku [place] HospitalComment on above:Result Comment: If recent infection suspected, recommend repeat testing (>2 months). Kyskrg-hg-loramq ratio is <1.0.Performed By: #### KEVIN BENOIT, 82124-7 #### [facility] ([id number]) [address], [address] [place], [place] [address]LDYZEGZ CALCIUMon 15-31-5760UQDGAPJ CALCIUM - ICAN3.9 mg/dLLow 4.5-5.3[facility] HospitalComment on above:Performed By: #### KEVIN BENOIT, 77154-9 #### [facility] ([id number]) [address] [address] [place] [address]SRRLLRU CALCIUM - ICAN3.8 mg/dLLow4.5-5.3[facility] HospitalComment on above:Performed By: #### KAYCEE PINDanny, 60711-1 #### [facility] ([id number]) [address], [address] [place], [place] [address]GKBVJUSTDla 31-41-6453Guvarzyky [Mass/Vol]2.8 mg/dLHigh1.8-2.6 [facility] HospitalComment on above:Performed By: #### KEVIN BENOIT, 04646-6 #### [facility] ([id number]) [address], [address] [place], [place] [address]VMVVXOMNNXOVKGO ABon 40-23-9258SVMJDXBOHQNKVAL AB<^0.2Normal<1.0 [facility] HospitalComment on above:Performed By: #### KEVIN BENOIT, 81661-4 #### [facility] ([id number]) [address], [address] [place], [place] [address]RDXUFWKGDIdf 27-92-8057Pscdmkckd [Mass/Vol]3.1 mg/dLNormal 2.4-4.9Pro[facility] HospitalComment on above:Performed By: #### KEVIN BENOIT, 56385-0 #### [facility] ([id number]) [address], [address] [place], [place] [address]ECVOZTDPQab 76-24-7821Couoxvhvr [Moles/Vol]3.5 mmol/LNormal 3.5-5.0Pro[facility] HospitalComment on above:Performed By: #### KEVIN BENOIT, 81411-8 #### [facility] ([id number]) [address], [address] [place], [place] [address]DBMYSYU ELECTROPHORESIS, SERUMon 62-33-7683Plzgyiw [Mass/Vol]2.5 g/dLLow3.4-5.3ProMedCrystal Clinic Orthopedic CenterComment on above:Performed By: #### KEVIN BENOIT, 99536-8 #### [facility] ([id number]) [address], [address] [place], [place] [address]HLZAJ 1 GLOBULIN0.5 g/dLHigh0.1-0.4ProPrem[facility] Comment on above:Performed By: #### KEVIN BENOIT, 02121-8 #### [facility] ([id number]) [address], [address] [place], [place] [address]LTYUG 2 GLOBULIN0.9 g/dLNormal0.4-1.1PKing's Daughters [facility] [place] Comment on above:Performed By: #### KEVIN BENOIT, 10862-3 #### [facility] ([id number]) [address], [address] [place], [place] [address]BPTS GLOBULIN0.6 g/dLNormal0.5-1.2PKing's Daughters [facility] [place] Comment on above:Performed By: #### KEVIN BENOIT, 56196-1 #### [facility] ([id number]) [address], [address] [place], [place] [address]LNQWM GLOBULIN0.6 g/dLNormal0.5-1.6[facility] Comment on above:Performed By: #### KEVIN BENOIT, 31695-8 #### [facility] ([id number]) [address], [address] [place], [place] [address]Orcfpna [Mass/Vol]5.1 g/dLLow6.0-8.0[facility] Comment on above:Performed By: #### KEVIN BENOIT, 39702-2 #### [facility] ([id number]) [address], [address] [place], [place] [address]SMWWMPP ELECTROPHORESIS INTERPSee Pathology ReportNormal [facility] HospitalComment on above:Performed By: #### KEVIN BENOIT, 05113-7 #### [facility] ([id number]) [address], [address] [place], [place] [address]TJDYKZQPLV 3 AB PR3on 66-16-6558ZPRTCEVWKV 3 IGG AB<^0.2Normal <1.0[facility] HospitalComment on above:Performed By: #### KEVIN BENOIT, 19176-8 #### [facility] ([id number]) [address], [address] [place], [place] [address]FDZTWPNUIS FACTORon 07-18-4256WHRHNBWWFQ XRLMXP60 IU/mLNormal<20 ProMKettering Health Behavioral Medical CenterComment on above:Performed By: #### KEVIN BENOIT, 89073-4 #### [facility] ([id number]) [address], [address] [place], [place] [address]TM ABDOMEN AP 1 VWon 47-79-2502VK ABDOMEN AP 1 VWXR ABDOMEN AP 1 VW XR ABDOMEN AP [...] by Adriano Jeffrey MD on 09/14/2024 11:53 AMNormalProWood County Hospital WITH AUTO DIFFERENTIALon 39-29-6141Uoqv form neutrophils/100 WBC (Bld)13 %NormalMercy Health – The Jewish HospitalComchelsea hospital on above:Result Comment: This is an appended report. These results have been appended to a previously prelimi nary verified report.Performed By: #### KAYCEE PINR, 03122-0 #### [facility] ([id number]) [address], [address] [place], [place] [address]KDBPOQAEOAL ACANTHOCYTES IN BLOOD BY LIGHT MICROSCOPY1+Normal [facility] HospitalComchelsea hospital on above:Result Comment: This is an appended report. These results have been appended to a previously preliminary verified report.Performed By: #### KAYCEE PINR, 85462-3 #### [facility] ([id number]) [address], [address] [place], [place] [address]GREAYWXGNPL JASVIR CELLS IN BLOOD BY LIGHT MICROSCOPY1+Normal [facility] HospitalComchelsea hospital on above:Result Comment: This is an appended report. These results have been appended to a previously preliminary verified report.Performed By: #### KAYCEE, PINR, 80100-6 #### [facility] ([id number]) [address], [address] [place], [place] [address]OQAUDKJHSJX DIFFERENTIAL TYPEMANUAL DIFFERENTIALNormalProPremier Health Miami Valley HospitalComment on above:Result Comment: This is an appended report. These results have been appended to a previously preliminary verified report. Performed By: #### CBCA, PINR, 35684-6 #### [facility] ([id number]) [address], [address] [place], [place] [address]YCIWQUUHFFD ELLIPTOCYTES IN BLOOD BY LIGHT MICROSCOPY1+Normal [facility] HospitalComment on above:Result Comment: This is an appended report. These results have been appended to a previously preliminary verified report.Performed By: #### CBCA, PINR, 61208-5 #### [facility] ([id number]) [address], [address] [place], [place] [address]YYKUMLANKZN LYMPHOCYTES ABSOLUTE COUNT (10*3/UL) BY MANUAL COUNT 0.3 10*3/uLLow1.0-3.5Pro[facility] HospitalComment on above:Result Comment: This is an appended report. These results have been appended to a previously preliminary verified report.Performed By: #### CBCA, PINR, 95621-7 #### [facility] ([id number]) [address], [address] [place], [place] [address]XYSBKYHHVYZ LYMPHOCYTES RELATIVE PERCENT BY MANUAL COUNT1 % NormalProPremier Health Miami Valley HospitalComment on above:Result Comment: This is an appended report. These results have been appended to a previously preliminary verified report.Performed By: #### CBCA, PINR, 29587-8 #### [facility] ([id number]) [address], [address] [place], [place] [address]KAXCHSWYMKJ MONOCYTES ABSOLUTE COUNT (10*3/UL) IN BLOOD BY MANUAL COUNT1.3 10*3/uLHigh0.0-0.9Pro[facility] Memorial HospitalComment on above: Result Comment: This is an appended report. These results have been appended to a previously preliminary verified report.Performed By: #### CBCA, PINR, 58981-7 #### [facility] ([id number]) [address] [place], [place] [address]DOVLYVIOVUZ MONOCYTES RELATIVE PERCENT BY MANUAL COUNT4 %Normal [facility] HospitalComment on above:Result Comment: This is an appended report. These results have been appended to a previously preliminary verified report.Performed By: #### CBCA, PINR, 43066-8 #### [facility] ([id number]) [address] [place], [place] [address]GQQLDLDTZYU NEUTROPHILS ABSOLUTE COUNT BY MANUAL COUNT29.9 10*3/uLHigh1.5-6.6[facility] HospitalComment on above:Result Comment: This is an appended report. These results have been appended to a previously prelimi nary verified report.Performed By: #### CBCA, PINR, 60896-4 #### [facility] ([id number]) [address] [place], [place] [address]UEFZFIVAXGT NEUTROPHILS RELATIVE PERCENT BY MANUAL COUNT82 % NormalProMedica Palmyra HospitalComment on above:Result Comment: This is an appended report. These results have been appended to a previously preliminary verified report.Performed By: #### KAYCEE, PINR, 59855-1 #### [facility] ([id number]) [address] [place], [place] [address]MVSKBVCVDKF TOXIC GRANULES IN BLOOD BY LIGHT MICROSCOPY2+Normal [facility] HospitalComment on above:Result Comment: This is an appended report. These results have been appended to a previously preliminary verified report.Performed By: #### CBCA, PINR, 74001-3 #### [facility] ([id number]) [address] [place], [place] [address]DDZRSWTJRJQ VACUOLATED NEUTROPHILS1+NormalProMedica Palmyra HospitalComment on above:Result Comment: This is an appended report. These results have been appended to a previously preliminary verified report.Performed By: #### CBCA, PINR, 59834-5 #### [facility] ([id number]) [address], [address] [place], [place] [address]Wwbsoggqwbs distribution width (RBC) [Ratio]14.9 %Ymchbd67.5-15 [facility] HospitalComment on above:Performed By: #### CBCA, PINR, 02681-0 #### [facility] ([id number]) [address], [address] [place], [place] [address]Vowxttweqv (Bld) [Volume fraction]37.0 %Nuahvz06-47QyaQtnsoa [facility] HospitalComment on above:Performed By: #### CBCA, PINR, 01990-9 #### [facility] ([id number]) [address], [address] [place], [place] [address]Tiqzcxkinr (Bld) [Mass/Vol]12.8 g/nPEaykvo09.7-15.5Pro[facility] HospitalComment on above:Performed By: #### CBCDavid, PINR, 35628-0 #### [facility] ([id number]) [address], [address] [place], [place] [address]ZPY (RBC) [Entitic mass]31.9 vpQduyko18-09KsoVvwumi [facility]ñonez HospitalComment on above:Performed By: #### CBCDavid, PINR, 22980-8 #### [facility] ([id number]) [address], [address] [place], [place] [address]OZVP (RBC) [Mass/Vol]34.5 g/zYAgzksx80-54BliYbxdwo [facility]z HospitalComment on above:Performed By: #### CBCA, PINR, 77874-7 #### [facility] ([id number]) [address], [address] [place], [place] [address]HZA (RBC) [Entitic vol]92 zLWoemdu11-650QfuMbemwg [facility] HospitalComment on above:Performed By: #### CBCA, PINR, 61725-8 #### [facility] ([id number]) [address], [address] [place], [place] [address]Hyeeguab mean volume (Bld) [Entitic vol]8.2 fLNormal7-12 [facility]icC[facility] HospitalComment on above:Performed By: #### KEVIN BENOIT, 31631-7 #### [facility] ([id number]) [address], [address] [place], [place] [address]Awoeoevsf (Bld) [#/Vol]342 10*3/sHXeayao525-090ZkfFggube [place] HospitalComment on above:Performed By: #### KEVIN BENOIT, 62860-7 #### [facility] ([id number]) [address], [address] [place], [place] [address]BNW COUNT4.01 X10E12/LNormal3.8-5.2PKing's Daughters [facility] [place] Comment on above:Performed By: #### KEVIN BENOIT, 45758-5 #### [facility] ([id number]) [address], [address] [place], [place] [address]PLI (Bld) [#/Vol]31.5 10*3/uLHigh4-11[facility] Comment on above:Performed By: #### KEVIN BENOIT, 28505-4 #### [facility] ([id number]) [address], [address] [place], [place] [address]YRBRGSIZZLHGJ METABOLIC PANELon 92-12-3430Pqxvxlg [Mass/Vol]3.8 g/dLNormal3.2-5.3PKing's Daughters [facility] Center OhioComment on above:Performed By: #### KAYCEE PINR, 88413-1 #### [facility] ([id number]) [address], [address] [place], [place] [address]YBF [Catalytic activity/Vol]84 U/WJispmr12-866OldOoqxlu [place] HospitalComment on above:Performed By: #### CBCA, PINR, 49654-5 #### [facility] ([id number]) [address], [address] [place], [place] [address]VXN [Catalytic activity/Vol]10 U/LNormal<=31[facility] HospitalComment on above:Performed By: #### KAYCEE, PINR, 98622-1 #### [facility] ([id number]) [address], [address] [place], [place] [address]Dkmcg gap [Moles/Vol]15 mmol/LNormal5-15[facility] HospitalComment on above:Performed By: #### KAYCEE, PINR, 96827-7 #### [facility] ([id number]) [address], [address] [place], [place] [address]GZU [Catalytic activity/Vol]15 U/LNormal<=41[facility] HospitalComment on above:Performed By: #### KAYCEE, PINR, 83283-3 #### [facility] ([id number]) [address], [address] [place], [place] [address]Oknazgfas [Mass/Vol]0.2 mg/dLLow0.3-1.2PKing's [facility] [place] Comment on above:Performed By: #### KAYCEE, PINR, 07002-5 #### [facility] ([id number]) [address], [address] [place], [place] [address]Czzlsrw [Mass/Vol]7.2 mg/dLLow8.5-10.5PKing's Daughters [facility] [place] Comment on above:Performed By: #### CBCDavid, PINR, 28670-6 #### [facility] ([id number]) [address], [address] [place], [place] [address]Tbkdpmtt [Moles/Vol]103 mmol/IKqyxkh95-355NyaDgnfbv [place] HospitalComment on above:Performed By: #### KAYCEE, PINR, 25862-0 #### [facility] ([id number]) [address], [address] [place], [place] [address]VH1 [Moles/Vol]12 mmol/BWuq58-47XkwOsxzzgKing's Daughters Medical Center OhioComment on above:Performed By: #### KEVIN BENOIT, 49781-9 #### [facility] ([id number]) [address], [address] [place], [place] [address]Itrinzqmcu [Mass/Vol]2.30 mg/dLHigh0.40-1.00ProPrem[facility] HospitalComment on above:Result Comment: METHOD TRACEABLE TO IDMS STANDARD Performed By: #### KEVIN BENOIT, 49250-6 #### [facility] ([id number]) [address], [address] [place], [place] [address]XYA/1.73 sq M.predicted among non-blacks MDRD (S/P/Bld) [Vol rate/Area]24 mL/min/{1.73_m2}Low>=60ProPremier Health [facility] Valley HospitalComment on above: Result Comment: Reported eGFR is based on the CKD-EPI 2020 equation that does not use a race coefficient.Performed By: #### KEVIN BENOIT, 30104-3 #### [facility] ([id number]) [address], [address] [place], [place] [address]Oxxfwbr [Mass/Vol]188 mg/rAPjpz00-29DolQttcpj [facility] Comment on above:Performed By: #### KEVIN BENOIT 70915-8 #### [facility] ([id number]) [address], [address] [place], [place] [address]Opwfzhzco [Moles/Vol]4.3 mmol/LNormal3.5-5.0ProPrem[facility] Health [facility] HospitalComment on above:Performed By: #### KEVIN BENOIT, 17023-2 #### [facility] ([id number]) [address] [place], [place] [address]Glershr [Mass/Vol]7.1 g/dLNormal6.0-8.0[facility] Comment on above:Performed By: #### KAYCEE, PINR, 90620-0 #### [facility] ([id number]) [address], [address] [place], [place] [address]Ahieyv [Moles/Vol]130 mmol/NSum118-649KrhUgxkyfMercy Health – [facility] Hospital Comment on above:Performed By: #### KAYCEE, PINR, 99995-3 #### [facility] ([id number]) [address] [place], [place] [address]Uzkt nitrogen [Mass/Vol]105 mg/dLHigh5-27ProPrem[facility] Health [facility] HospitalComment on above:Performed By: #### KAYCEE, PINR, 47541-3 #### [facility] ([id number]) [address] [place], [place] [address]GVUZ SCREEN, URINEon 51-84-1521EGXJNJYRMYP/METHAMPNegativeNormal NegativeMercy Health – The Jewish HospitalComment on above:Result Comment: AMPH/METH screening cut off = 1000 ng/mLPerformed By: #### KAYCEE, PINR, 18361-5 #### [facility] ([id number]) [address], [address] [place], [place] [address]VQVGOWGORELUDisheawoXyvjjvChavwcdcBsnUpcgou [facility] Comment on above:Result Comment: Barbiturates screening cut off value = 200 ng/mLPerformed By: #### CBCA, PINR, 10116-3 #### [facility] ([id number]) [address], [address] [place], [place] [address]BJCCERKZSYQLEPDAayjtahgLzfsdgOfdgxsdpBxwWiamtx [facility] Comment on above:Result Comment: Benzodiazepines screening cut off value = 200 ng/mLPerformed By: #### CBCA, PINR, 73652-6 #### [facility] ([id number]) [address], [address] [place], [place] [address]NFYEBRGEVUFJQywwxnyaPuzyhmXalbkilaMiaIczesq [facility] Comment on above:Result Comment: Cannabinoids/THC screening cut off value = 50 ng/mLPerformed By: #### KAYCEE PINR, 19166-1 #### [facility] ([id number]) [address], [address] [place], [place] [address]SUCIFJR METABOLITENegativeNormalNegativeProMedica Palmyra HospitalComment on above:Result Comment: Cocaine screening cut off value = 300 ng/mLPerformed By: #### KAYCEE, PINR, 24622-2 #### [facility] ([id number]) [address], [address] [place], [place] [address]WCSLKVWNfzvygznVsblrgEfjqgttvWbxYlljyv [facility] HospitalComment on above:Result Comment: Ecstasy screening cut off value = 500 ng/mLPerformed By: #### KAYCEE PINR, 19419-0 #### [facility] ([id number]) [address], [address] [place], [place] [address]NRSSJVJZJUqamftguFyhfvaQwfmxsvnJlmAfxmda [facility] HospitalComment on above:Result Comment: Methadone screening cut off value = 300 ng/mL.Performed By: #### KAYCEE, PINR, 11651-1 #### [facility] ([id number]) [address], [address] [place], [place] [address]HIZXJOXHwhlwwmaKapgjrDhahnfobYnhXqmrok [facility] HospitalComment on above:Result Comment: Opiates screening cut off value = 300 ng/mL This test is used for the detection of codeine, hydrocodone (>1000 ng/mL), morphine and hydromorphone (>900 ng/mL) in urine.Performed By: #### ARANZAA, PINR, 88595-0 #### [facility] ([id number]) [address], [address] [place], [place] [address]OURYIMMYHIzoqtxmmHykskjIlzvzgarAaaGyqpmq [facility]ñonez HospitalComment on above:Result Comment: Oxycodone screening cut off value = 300 ng/mL This test is used for the detection of oxycodone and oxymorphone in urine.Performed By: #### KEVIN BENOIT, 19385-8 #### [facility] ([id number]) [address], [address] [place] [address]NDPYEUHUOZJMYIpadirpbSgkhwaRyomlptxVroVyznqd [facility] Comment on above:Result Comment: Phencyclidine screening cut off value = 25 ng/mLPerformed By: #### KAYCEE PINR, 03377-7 #### [facility] ([id number]) [address], [address] [place] [id number] SWALLOW MOTILITY FUNCTIONon [id number] SWALLOW MOTILITY FUNCTIONFL SWALLOW MOTILITY FUNCTION STUDY: Video fluoroscopic swallow [...] by Rory Harris MD on 09/13/2024 12:24 PMNormalProPremier Health [facility] IONIZED CALCIUMon [id number] CALCIUM - ICAN3.9 mg/dLLow4.5-5.3ProMedCrystal Clinic Orthopedic CenterComment on above:Performed By: #### KAYCEE, PINR, 84715-2 #### [facility] ([id number]) [address], [address] [place], [place] [address]CKWQJHM CALCIUM - ICAN3.9 mg/dLLow4.5-5.3ProMedBarnesville Hospital HospitalComment on above:Performed By: #### KAYCEE PINR, 28683-5 #### [facility] ([id number]) [address], [address] [place], [place] [address]IUARPRCIEkk 18-60-1669Ryeifrclb [Mass/Vol]3.1 mg/dLHigh1.8-2.6 [facility] HospitalComment on above:Performed By: #### KEVIN BENOIT, 21851-9 #### [facility] ([id number]) [address], [address] [place], [place] [address]XAFJWLTAQZSH / CREATININE URINE RATIOon 65-66-9342Elrufph DL <= 20 mg/L (U) [Mass/Vol]2.3 mg/dLHigh0.0-1.9ProPremier Health Miami Valley HospitalComment on above:Performed By: #### KEVIN BENOIT, 64886-1 #### [facility] ([id number]) [address], [address] [place], [place] [address]EGUL/CREAT RATIO35.1 mg/gHigh0.0-30.0[facility] Comment on above:Performed By: #### KEVIN BENOIT, 57816-9 #### [facility] ([id number]) [address], [address] [place], [place] [address]XLOOE CREATININE,RDM65.47 mg/dLNormalMercy Health – [facility] Comment on above:Performed By: #### KEVIN BENOIT, 31397-2 #### [facility] ([id number]) [address], [address] [place], [place] [address]HYWRPBUOOR, URINEon 31-50-1291DZFFO RRYKJLHZQB350 mOsm/kg H2 Mbpwgx906-6826KqmEccugy [place] HospitalComment on above:Performed By: #### KEVIN BENOIT, 53000-7 #### [facility] ([id number]) [address], [address] [place], [place] [address]XQYZJRYTABANCwr 07-76-6199GPQWBAEHRJVSH1.40 ng/mLHigh<0.05 [facility] HospitalComment on above:Order Comment: <0.50 ng/mL - Low risk of severe sepsis and/or septic shock.<2.00 ng/mL - Recommend retesting within 6- 24 hours.>2.00 ng/mL - High risk of sepsis and/or septic shock.Performed By: #### SURENDRA BENOITR, 39813-2 #### [facility] ([id number]) [address], [address] [place], [place] [address]MCFDXGxr 35-06-1270Mrarxj [Moles/Vol]133 mmol/MDzu965-508 [facility] HospitalComment on above:Performed By: #### KEVIN BENOIT, 02085-8 #### [facility] ([id number]) [address], [address] [place], [place] [address]Jwhnnf [Moles/Vol]133 mmol/UPwj265-715DhvFavefiMercy Health – The Jewish Hospital Comment on above:Performed By: #### KAYCEE PINR, 29540-5 #### [facility] ([id number]) [address], [address] [place], [place] [address]Vemldp [Moles/Vol]132 mmol/QSsr839-804KnqJyathaPremier Health [facility] Valley Hospital Comment on above:Performed By: #### KAYCEE PINDanny, 99060-1 #### [facility] ([id number]) [address], [address] [place], [place] [address]EHICZI, URINE, RANDOMon 48-96-3018Lqavpc (U) [Moles/Vol]22 mmol/LNormalProWadsworth-Rittman Hospitalca Palmyra HospitalComment on above:Performed By: #### KAYCEE PINR, 36665-0 #### [facility] ([id number]) [address], [address] [place], [place] [address]EUFCI CREATININE,RANDOMon 66-59-5377ZGOFA CREATININE,RDM51.96 mg/dLNormalProEast Liverpool City Hospital HospitalComment on above:Performed By: #### KEVIN BENOIT, 20082-3 #### [facility] ([id number]) [address], [address] [place], [place] [address]ISQVT METABOLIC PANELon 13-15-5226Gxqni gap [Moles/Vol]15 mmol/L Normal5-15ProMedica [facility]myra HospitalComment on above:Performed By: #### KEVIN BENOIT, 38965-5 #### [facility] ([id number]) [address], [address] [place], [place] [address]Eogssrg [Mass/Vol]7.5 mg/dLLow8.5-10.5PKing's Daughters [facility] [place] Comment on above:Performed By: #### KEVIN BENOIT, 45212-3 #### [facility] ([id number]) [address], [address] [place], [place] [address]Qtzpqesd [Moles/Vol]102 mmol/SKyjvoy66-353YruYmjtjk [place] HospitalComment on above:Performed By: #### KEVIN BENOIT, 63980-9 #### [facility] ([id number]) [address], [address] [place], [place] [address]IN3 [Moles/Vol]10 mmol/XGgc91-71PmqKbpssi [place] HospitalComment on above:Performed By: #### KEVIN BENOIT, 50839-0 #### [facility] ([id number]) [address], [address] [place], [place] [address]Anmvgkvtgt [Mass/Vol]2.69 mg/dLHigh0.40-1.00ProMediParkview Health HospitalComment on above:Result Comment: METHOD TRACEABLE TO IDMS STANDARD Performed By: #### KEVIN BENOIT, 78660-9 #### [facility] ([id number]) [address], [address] [place], [place] [address]CIK/1.73 sq M.predicted among non-blacks MDRD (S/P/Bld) [Vol rate/Area]20 mL/min/{1.73_m2}Low>=60ProPremier Health Miami Valley HospitalComment on above: Result Comment: Reported eGFR is based on the CKD-EPI 2020 equation that does not use a race coefficient.Performed By: #### KEVIN BENOIT, 07549-9 #### [facility] ([id number]) [address], [address] [place], [place] [address]Xkeagbc [Mass/Vol]127 mg/zZSszo89-34HonPpevogMercy Health – The [facility] Hospital Comment on above:Performed By: #### KEVIN BENOIT, 52318-4 #### [facility] ([id number]) [address], [address] [place], [place] [address]Aqraizqiv [Moles/Vol]4.9 mmol/LNormal3.5-5.0ProPremier Health Miami Valley HospitalComment on above:Performed By: #### KEVIN BENOIT, 41796-9 #### [facility] ([id number]) [address], [address] [place], [place] [address]Xxabce [Moles/Vol]127 mmol/GLmk431-191WjkPbcjnoMercy Health – [facility] Hospital Comment on above:Performed By: #### KEVIN BENOIT, 09876-8 #### [facility] ([id number]) [address], [address] [place], [place] [address]Hgwy nitrogen [Mass/Vol]107 mg/dLHigh5-27ProPremier Health [facility] HospitalComment on above:Performed By: #### KEVIN BENOIT, 31894-5 #### [facility] ([id number]) [address], [address] [place], [place] [address]DTDBT CULTUREon 66-96-4121Pefggnej identified Cx Nom (Bld) CULTURE RESULTS NO GROWTH 5 DAYSNormalProPermian Regional Medical CenterComment on above:Order Comment: *SIRS Criteria: (must display 2 without other explanation)-Temperature < 36 or >38-Pulse >90-Resp rate >20-WBC less than 4K or greater than 12KRepeat blood cultures not needed:-To document that a blood culture is a contaminant when 1 of 2 bottles is positive for a common contaminant (already listed in [facility] with the culture result)-To document clearance of gram negative bacteremia in patients with suspected urinary source who are improvingSuboptimal volume of blood collected, Results may be affected.Performed By: #### CBCA, CMP, FEPR, 45405-0, TSHR, 2276-4, HA1C, 2283-09, 2131-10 #### [facility] ([id number]) [address] [facility], [address] [place] [address] #### 23401-4 #### [facility] ([id number]) [address] [place] [address]Nwbth Comment: *SIRS Criteria: (must display 2 without other explanation)-Temperature < 36 or >38-Pulse >90-Resp rate >20-WBC less than 4K or greater than 12KRepeat blood cultures not needed:-To document that a blood culture is a contaminant when 1 of 2 bottles is positive for a common contaminant (already listed in [facility] with the culture result)-To document clearance of gram negative bacteremia in patients with suspected urinary source who are improvingSuboptimal volume of blood collected, Results may be affected.Only aerobic bottle received, suboptimal volume of blood collected, results may be affected.BLOOD GAS, ARTERIALon 36-20-8847SVER,DEFICIT-22.0 mmol/L Low0.0-2.0ProPermian Regional Medical CenterComment on above:Performed By: #### CBCA, CMP, FEPR, 54615-1, TSHR, 2276-4, HA1C, 2283-09, 2131-10 #### [facility] ([id number]) [address] [place] [address], [address] [place] [address] #### 03351-3 #### [facility] ([id number]) [address] [place] [address]QYM8 (Bld) [Moles/Vol]6.1 mmol/LLow22.0-26.0ProPermian Regional Medical CenterComment on above:Performed By: #### CBCA, CMP, FEPR, 61316-9, TSHR, 2276-4, HA1C, 2283-, 2131-10 #### [facility] ([id number]) [address], [address] [place] [address] #### 81831-9 #### [facility] ([id number]) [address] [place] [address]QJTG. O2 CONC.21 %NormalProPermian Regional Medical CenterComment on above:Performed By: #### CBCA, CMP, FEPR, 77855-1, TSHR, 2276-4, HA1C, 2283-09, 2131-10 #### [facility] ([id number]) [address], [address] [place] [address] #### 98359-5 #### [facility] ([id number]) [address] [place] [address]Kfrrrk saturation in Blood97.0 %Normal>90.0ProPermian Regional Medical CenterComment on above:Performed By: #### CBCA, CMP, FEPR, 04765-1, TSHR, 2276-4, HA1C, 2283-09, 2131-10 #### [facility] ([id number]) [address], [address] [place] [address] #### 00079-1 #### [facility] ([id number]) [address] [place] [address]OTQ9 VRALFEVO39.2 mmHgCritically low35.0-45.0ProPermian Regional Medical CenterComment on above:Performed By: #### CBCA, CMP, FEPR, 30297-7, TSHR, 2276-4, HA1C, 2283-, 2131-10 #### [facility] ([id number]) [address], [address] [place] [address] #### 30268-8 #### [facility] ([id number]) [address] [place] [address]FW ARTERIAL7.089Critically low7.350-7.450ProPermian Regional Medical CenterComment on above:Performed By: #### CBCA, CMP, FEPR, 07169-3, TSHR, 2276-4, HA1C, 2283-8, 2131-10 #### [facility] ([id number]) [address], [address] [place] [address] #### 49487-2 #### [facility] ([id number]) [address] [place] [address] 12285AC4 DQMFSAMB128 ziOyWxle33-943UkmAjiqzl Fremont HospitalComment on above:Performed By: #### CBCA, CMP, FEPR, 34459-3, TSHR, 2276-4, HA1C, 2283- , 2131-10 #### [facility] ([id number]) [address], [address] [place] [address] #### 19168-7 #### [facility] ([id number]) [address] [place] [address] 259[address]DLR PRACHI'S TESTN/ANormalProPermian Regional Medical CenterComment on above:Performed By: #### CBCA, CMP, FEPR, 20223-7, TSHR, 2276-4, HA1C, 2283-, 2131-10 #### [facility] ([id number]) [address], [address] [place] [address] #### 28223-1 #### [facility] ([id number]) [address] [place] [address] 56[address]XPRPCW SITER RadNormalProPermian Regional Medical CenterComment on above:Performed By: #### CBCA, CMP, FEPR, 72364-9, TSHR, 2276-4, HA1C, 2284-8, 2131-10 #### [facility] ([id number]) [address], [address] [place] [address] #### 51129-0 #### [facility] ([id number]) [address] [place] [address]39[address]YQDVKD TYPEARTERIALNormalProWadsworth-Rittman Hospitalca [facility] Regional Medical CenterComment on above:Performed By: #### CBCA, CMP, FEPR, 25942-9, TSHR, 2276-4, HA1C, 4-8, 2131-10 #### [facility] ([id number]) [address] [facility], [address] [place] [address] #### 85366-1 #### [facility] ([id number]) [address] [place] [address] 28[address]WSSNVX OF OXYGENRoom AirNormalProPermian Regional Medical CenterComment on above:Performed By: #### CBCA, CMP, FEPR, 08683-5, TSHR, 2276-4, HA1C, 2283- , 2131-10 #### [facility] ([id number]) [address] [facility], [address] [place] [address] #### 48764-3 #### [facility] ([id number]) [address] [place] [address] 55630FPDPX GAS, VENOUSon 11-74-7842ZEWA,DEFICIT-19.0 mmol/LLow 0.0-2.0Pro[facility]ica [facility]ra HospitalComment on above:Performed By: #### CBCA, PINR, 86733-7 #### [facility] ([id number]) [address], [address] [place], [place] [address]LNR1 (Bld) [Moles/Vol]7.2 mmol/LLow20.0-24.0Pro[facility] [place] HospitalComment on above:Performed By: #### CBCDavid, PINR, 07310-5 #### [facility] ([id number]) [address], [address] [place], [place] [address]NETR. O2 CONC.21 %NormalProMedica [place]ñone[place] HospitalComment on above:Performed By: #### CBCDavid, PINR, 85486-3 #### [facility] ([id number]) [address], [address] [place], [place] [address]Ymobvl saturation in Blood85.0 %NormalProMedica [facility]myra Hospital Comment on above:Performed By: #### KAYCEE, PINR, 87578-3 #### [facility] ([id number]) [address], [address] [place], [place] [address]ZZW4 IJOTDC04.1 mrBnCrc13.0-50.0Pro[facility]ica [facility] HospitalComment on above:Performed By: #### KAYCEE, PINR, 29555-3 #### [facility] ([id number]) [address], [address] [place], [place] [address]QH VENOUS7.234Mhz0.320-7.420Pro[facility] [place] HospitalComment on above:Performed By: #### CBCDavid, PINR, 05109-3 #### [facility] ([id number]) [address], [address] [place], [place] [address]JC0 DQFSRY37 yzZdObgo18-36WdiMziicn [place] HospitalComment on above:Performed By: #### CBCA, PINR, 88966-4 #### [facility] ([id number]) [address], [address] [place], [place] [address]KBW PRACHI'S TESTN/ANormalProMedica [place] HospitalComment on above:Performed By: #### CBCA, PINR, 88045-4 #### [facility] ([id number]) [address], [address] [place], [place] [address]SNFCPN SITEN/ANormalProMedica Elyria Memorial HospitalComment on above: Performed By: #### KAYCEE PINR, 16224-0 #### [facility] ([id number]) [address], [address] [place], [place] [address]FKGMQP TYPEVENOUSNormalProWadsworth-Rittman Hospitalca Palmyra HospitalComment on above:Performed By: #### KAYCEE PINR, 60018-8 #### [facility] ([id number]) [address], [address] [place], [place] [address]ZTUGSD OF OXYGENRoom AirNormalProMedica Elyria Memorial HospitalComment on above:Performed By: #### KAYCEE PINR, 93176-7 #### [facility] ([id number]) [address], [address] [place] [address]VEFES GAS, VENOUSVBG BLOOD GAS, VENOUS CancelledNormalProMedica Palmyra HospitalCBC WITH AUTO DIFFERENTIALon 27-04-2567Yeue form neutrophils/100 WBC (Bld)5 %NormalCleveland Clinic Euclid HospitalComment on above:Result Comment: This is an appended report. These results have been appended to a previously preliminary verified report.Performed By: #### CBCA, CMP, FEPR, 41144-5, TSHR, 2276-4, HA1C, 2283-, 2131-10 #### [facility] ([id number]) [address], [address] [place] [address] #### 90733-8 #### [facility] ([id number]) [address] [place] [address], FIRST FLOOR [place], [place] [address]ZJUVWUBWHNN JASVIR CELLS IN BLOOD BY LIGHT MICROSCOPY1+Normal [facility]uclid HospitalComchelsea hospital on above:Result Comment: This is an appended report. These results have been appended to a previously preliminary verified report.Performed By: #### CBCA, CMP, FEPR, 01946-6, TSHR, 2276-4, HA1C, 2284-8, 2131-10 #### [facility] ([id number]) [address], [address] [place] [address] #### 58306-0 #### [facility] ([id number]) [address] [place], [place] [address]NJUSWJVTEEO DIFFERENTIAL TYPEMANUAL DIFFERENTIALNormalProMedica Downey Regional Medical CenterComment on above:Result Comment: This is an appended report. These results have been appended to a previously preliminary verified report. Performed By: #### CBCA, CMP, FEPR, 44243-6, TSHR, 2276-4, HA1C, 2283-09, 2131-10 #### [facility] ([id number]) [address], [address] [place] [address] #### 46354-1 #### [facility] ([id number]) [address] [place] [address] 78401CKWPJLOSOZB ELLIPTOCYTES IN BLOOD BY LIGHT MICROSCOPY1+Normal Pro[facility] Regional Medical CenterComment on above:Result Comment: This is an appended report. These results have been appended to a previously preliminary verified report.Performed By: #### CBCA, CMP, FEPR, 31517-5, TSHR, 2276-4, HA1C, 2283-09, 2131-10 #### [facility] ([id number]) [address], [address] [place] [address] #### 04138-2 #### [facility] ([id number]) [address] [place] [address] 116[address]NBOESHBQCHE LYMPHOCYTES ABSOLUTE COUNT (10*3/UL) BY MANUAL COUNT1.0 10*3/uLNormal1.0-3.5ProMedica [facility] Medical CenterComchelsea hospital on above:Result Comment: This is an appended report. These results have been appended to a previously preliminary verified report.Performed By: #### CBCA, CMP, FEPR, 78542-7, TSHR, 2276-4, HA1C, 2283-09, 2131-10 #### [facility] ([id number]) [address] [facility], [address] [place] [address] #### 52880-4 #### [facility] ([id number]) [address] [place] [address] 869[address]KSQIYOHLJIX LYMPHOCYTES RELATIVE PERCENT BY MANUAL COUNT3 % NormalProPermian Regional Medical CenterComchelsea hospital on above:Result Comment: This is an appended report. These results have been appended to a previously preliminary verified report.Performed By: #### CBCA, CMP, FEPR, 65586-1, TSHR, 6-4, HA1C, 2283-, 2131-10 #### [facility] ([id number]) [address] [place] [address], [address] [place] [address] #### 44759-0 #### [facility] ([id number]) [address] [place] [address] 377[address]NUJLMOKYIVL MONOCYTES ABSOLUTE COUNT (10*3/UL) IN BLOOD BY MANUAL COUNT0.7 10*3/uLNormal0.0-0.9[facility] on above: Result Comment: This is an appended report. These results have been appended to a previously preliminary verified report.Performed By: #### CBCA, CMP, FEPR, 83564-0, TSHR, 2276-4, HA1C, 2283-, 2131-10 #### [facility] ([id number]) [address] [place] [address], [address] [place] [address] #### 27827-8 #### [facility] ([id number]) [address] [place] [address] 93854SBWGMRJPVWX MONOCYTES RELATIVE PERCENT BY MANUAL COUNT2 %Normal ProMGoleta Valley Cottage Hospital on above:Result Comment: This is an appended report. These results have been appended to a previously preliminary verified report.Performed By: #### CBCA, CMP, FEPR, 37537-9, TSHR, 2276-4, HA1C, 2284-8, 2-9 #### [facility] ([id number]) [address] [facility], [address] [place] [address] #### 81661-7 #### [facility] ([id number]) [address] [place] [address] 53184IMNDAWWKXRM NEUTROPHILS ABSOLUTE COUNT BY MANUAL COUNT31.5 10*3/uLHigh1.5-6.6ProPermian Regional Medical CenterComment on above:Result Comment: This is an appended report. These results have been appended to a previously preliminary verified report.Performed By: #### CBCA, CMP, FEPR, 56568-0, TSHR, 2276-4, HA1C, 2284-8, 2131-9 #### [facility] ([id number]) [address] [facility], [address] [place] [address] #### 44313-9 #### [facility] ([id number]) [address] [place] [address] 33550BZMPRAVNWAF NEUTROPHILS RELATIVE PERCENT BY MANUAL COUNT90 % NormalProPermian Regional Medical CenterComment on above:Result Comment: This is an appended report. These results have been appended to a previously preliminary verified report.Performed By: #### CBCA, CMP, FEPR, 77324-3, TSHR, 2276-4, HA1C, 2284-8, 2131-9 #### [facility] ([id number]) [address] [facility], [address] [place] [address] #### 83966-2 #### [facility] ([id number]) [address] [place] [address] 45493NNYIHECJIPP RBC FRAGMENTS1+NormalCleveland Clinic Euclid Hospital Comment on above:Result Comment: This is an appended report. These results have been appended to a previously preliminary verified report.Performed By: #### CBCA, CMP, FEPR, 09223-4, TSHR, 2276-4, HA1C, 4-8, 2131-10 #### [facility] ([id number]) [address], [address] [place] [address] #### 44821-6 #### [facility] ([id number]) [address] [place] [address] 42677Ssmysmlmrce distribution width (RBC) [Ratio]14.6 %Jggwde80.5-15 Pro[facility] Regional Medical CenterComment on above:Performed By: #### CBCA, CMP, FEPR, 36842-5, TSHR, 2276-4, HA1C, 2283-, 2131-10 #### [facility] ([id number]) [address], [address] [place] [address] #### 80332-0 #### [facility] ([id number]) [address] [place] [address] 90[address]Oigupllrbl (Bld) [Volume fraction]32.6 %Jgd47-79OzgHuzutz [facility] Regional Medical CenterComment on above:Performed By: #### CBCA, CMP, FEPR, 13190-2, TSHR, 2276-4, HA1C, 2283-, 2131-10 #### [facility] ([id number]) [address], [address] [place] [address] #### 58057-9 #### [facility] ([id number]) [address] [place] [address] 595[address]Ssmpxgugec (Bld) [Mass/Vol]11.0 g/dLLow11.7-15.5ProMedica [facility] Regional Medical CenterComment on above:Performed By: #### CBCA, CMP, FEPR, 41638-5, TSHR, 2276-4, HA1C, 2283-8, 2131-10 #### [facility] ([id number]) [address], [address] [place] [address] #### 17987-8 #### [facility] ([id number]) [address] [place] [address] 39690LES (RBC) [Entitic mass]31.0 ixKpavxq09-23RbgRycsevPermian Regional Medical CenterComment on above:Performed By: #### CBCA, CMP, FEPR, 57284-0, TSHR, 2276-4, HA1C, 2284-8, 2131-9 #### [facility] ([id number]) [address], [address] [place] [address] #### 49505-1 #### [facility] ([id number]) [address] [place] [address] [id number] (RBC) [Mass/Vol]33.7 g/jKHkwljw00-11DdzQvgiifPermian Regional Medical CenterComment on above:Performed By: #### CBCA, CMP, FEPR, 77893-3, TSHR, 2276-4, HA1C, 4-8, 2131-10 #### [facility] ([id number]) [address], [address] [place] [address] #### 25389-3 #### [facility] ([id number]) [address] [place] [address] 17931UZZ (RBC) [Entitic vol]92 fYThijdf71-375MzfAbqvcd [facility] HospitalComment on above:Performed By: #### CBCA, CMP, FEPR, 17409-6, TSHR, 2276-4, HA1C, 2284-8, 2131- #### [facility] ([id number]) [address], [address] [place] [address] #### 12055-4 #### [facility] ([id number]) [address] [place] [address] 14673Vtpyhbnp mean volume (Bld) [Entitic vol]8.3 fLNormal7-12 ProMPromise Hospital of East Los AngelesComment on above:Performed By: #### CBCA, CMP, FEPR, 59475-1, TSHR, 2276-4, HA1C, 2283-8, 2131-10 #### [facility] ([id number]) [address], [address] [place] [address] #### 56574-5 #### [facility] ([id number]) [address] [place], [place] [address]Mnkfkpimo (Bld) [#/Vol]422 10*3/tNHhxtcm453-032AzzQxgrgf [facility] HospitalComment on above:Performed By: #### CBCA, CMP, FEPR, 68233-7, TSHR, 2276-4, HA1C, 2283-09, 2131-10 #### [facility] ([id number]) [address], [address] [place] [address] #### 65251-7 #### [facility] ([id number]) [address] [place] [address] [id number] COUNT3.55 X10E12/LLow3.8-5.2PChildren's Hospital of [facility] Comment on above:Performed By: #### CBCA, CMP, FEPR, 25413-5, TSHR, 2276-4, HA1C, 2283-, 2131-10 #### [facility] ([id number]) [address], [address] [place] [address] #### 35027-4 #### [facility] ([id number]) [address] [place] [address] 11301IMG (Bld) [#/Vol]33.2 10*3/uLHigh4-11[facility] Comment on above:Performed By: #### CBCA, CMP, FEPR, 18886-5, TSHR, 2276-4, HA1C, 2283-09, 2131-10 #### [facility] ([id number]) [address] [place] [address], [address] [place] [address] #### 16842-6 #### [facility] ([id number]) [address] [place] [address] [id number] TOTALon [id number] U/XEuzgyx36-166KdxDtujki Toledo HospitalComment on above:Performed By: #### CBCA, PINR, 36654-4 #### [facility] ([id number]) [address] [place] [address], [address] [place], [place] [address]QRGSCEPPINQTA METABOLIC PANELon 40-90-6465Zkozpay [Mass/Vol]3.1 g/dLLow3.2-5.3ProMedJohn F. Kennedy Memorial HospitalComment on above:Performed By: #### CBCA, CMP, FEPR, 57496-2, TSHR, 2276-4, HA1C, 2283-09, 2131-10 #### [facility] ([id number]) [address] [place] [address], [address] [place] [address] #### 19047-7 #### [facility] ([id number]) [address] [place] [address] 01261FJT [Catalytic activity/Vol]77 U/QLinnpt05-750GazItlssgPermian Regional Medical CenterComment on above:Performed By: #### CBCA, CMP, FEPR, 70710-8, TSHR, 2276-4, HA1C, 2283-09, 2131-10 #### [facility] ([id number]) [address] [place] [address], [address] [place] [address] #### 74161-8 #### [facility] ([id number]) [address] [place] [address] 91938VEC [Catalytic activity/Vol]16 U/LNormal<=31PChildren's Hospital of ColumbusComment on above:Performed By: #### CBCA, CMP, FEPR, 71702-1, TSHR, 2276-4, HA1C, 2283-8, 2131-10 #### [facility] ([id number]) [address], [address] [place] [address] #### 69754-4 #### [facility] ([id number]) [address] [place] [address] 36574Hexru gap [Moles/Vol]17 mmol/LHigh5-15ProPermian Regional Medical CenterComment on above:Performed By: #### CBCA, CMP, FEPR, 19612-6, TSHR, 2276-4, HA1C, 2283-, 2131-10 #### [facility] ([id number]) [address], [address] [place] [address] #### 27970-7 #### [facility] ([id number]) [address] [place] [address] 26440DSN [Catalytic activity/Vol]16 U/LNormal<=41ProPermian Regional Medical CenterComment on above:Performed By: #### CBCA, CMP, FEPR, 69762-7, TSHR, 2276-4, HA1C, 2283-, 2131-10 #### [facility] ([id number]) [address], [address] [place] [address] #### 23366-1 #### [facility] ([id number]) [address] [place] [address] 06427Gfnfxabhj [Mass/Vol]0.3 mg/dLNormal0.3-1.2ProMedica Downey Regional Medical CenterComment on above:Performed By: #### CBCA, CMP, FEPR, 01728-3, TSHR, 2276-4, HA1C, 2283-, 2131-10 #### [facility] ([id number]) [address], [address] [place] [address] #### 75918-4 #### [facility] ([id number]) [address] [place] [address] 48572Quxcivi [Mass/Vol]7.1 mg/dLLow8.5-10.5PChildren's Hospital of ColumbusComment on above:Performed By: #### CBCA, CMP, FEPR, 92804-8, TSHR, 2276-4, HA1C, 4-8, 2131-10 #### [facility] ([id number]) [address] [facility], [address] [place] [address] #### 03980-2 #### [facility] ([id number]) [address] [place] [address] 61504Zectwcuv [Moles/Vol]97 mmol/SKab16-142TjyHahvvwPermian Regional Medical CenterComment on above:Performed By: #### CBCA, CMP, FEPR, 29506-6, TSHR, 2276-4, HA1C, 2283-8, 2131-10 #### [facility] ([id number]) [address] [facility], [address] [place] [address] #### 14094-4 #### [facility] ([id number]) [address] [place] [address] 80668XQ0 [Moles/Vol]8 mmol/LCritically pds93-80QzmMxptplChildren's Hospital of ColumbusComment on above:Performed By: #### CBCA, CMP, FEPR, 56203-5, TSHR, 2276-4, HA1C, 2283-8, 2131-10 #### [facility] ([id number]) [address] [facility], [address] [place] [address] #### 21090-6 #### [facility] ([id number]) [address] [place] [address] 90055Nyjwdlnscn [Mass/Vol]3.51 mg/dLHigh0.40-1.00ProPermian Regional Medical CenterComment on above:Result Comment: METHOD TRACEABLE TO IDMS STANDARD Performed By: #### CBCA, CMP, FEPR, 34781-9, TSHR, 2276-4, HA1C, 2284-8, 2131-10 #### [facility] ([id number]) [address] [facility], [facility] [address] [place] [address] #### 80400-3 #### [facility] ([id number]) [address] [place], [place] [address]MZB/1.73 sq M.predicted among non-blacks MDRD (S/P/Bld) [Vol rate/Area]14 mL/min/{1.73_m2}Low>=60ProPermian Regional Medical CenterComment on above: Result Comment: eGFR not reported due to non-numeric value for Creatinine. Reported eGFR is based on the CKD-EPI 2020 equation that does not use a race coefficient.Performed By: #### CBCA, CMP, FEPR, 44080-1, TSHR, 2276-4, HA1C, 2283-8, 2131-10 #### [facility] ([id number]) [address] [facility], [address] [address] #### 39595-2 #### [facility] ([id number]) [address] [place] [address] 06736Ietqjte [Mass/Vol]185 mg/jVKlrj30-04QinBkbyccPermian Regional Medical Center Comment on above:Performed By: #### CBCA, CMP, FEPR, 98719-5, TSHR, 2276-4, HA1C, 2284-8, 2131-10 #### [facility] ([id number]) [address] [facility], [address] [place] [address] #### 98058-8 #### [facility] ([id number]) [address] [place], [place] [address]Ljaxfagob [Moles/Vol]5.3 mmol/LHigh3.5-5.0ProPermian Regional Medical CenterComment on above:Performed By: #### CBCA, CMP, FEPR, 45654-4, TSHR, 2276-4, HA1C, 2283-09, 2131-10 #### [facility] ([id number]) [address] [place] [address], [address] [place] [address] #### 74002-1 #### [facility] ([id number]) [address] [place] [address] 56321Aksvjwv [Mass/Vol]5.9 g/dLLow6.0-8.0ProPermian Regional Medical Center Comment on above:Performed By: #### CBCA, CMP, FEPR, 24237-9, TSHR, 2276-4, HA1C, 2283-09, 2131-10 #### [facility] ([id number]) [address] [place] [address], [address] [place] [address] #### 68617-7 #### [facility] ([id number]) [address] [place] [address] 21645Xlmohv [Moles/Vol]122 mmol/MUrb784-740MngJamqxwPermian Regional Medical CenterComment on above:Performed By: #### CBCA, CMP, FEPR, 99653-9, TSHR, 2276-4, HA1C, 2283-09, 2131-10 #### [facility] ([id number]) [address] [place] [address], [address] [place] [address] #### 81895-4 #### [facility] ([id number]) [address] [place] [address] 49231Frga nitrogen [Mass/Vol]118 mg/dLHigh5-27ProPermian Regional Medical CenterComment on above:Performed By: #### CBCA, CMP, FEPR, 27873-5, TSHR, 2276-4, HA1C, 2283-09, 2131-10 #### [facility] ([id number]) [address] [facility], [address] [place] [address] #### 43443-0 #### [facility] ([id number]) [address] [place] [address], FIRST FLOOR [place], [place] [address] BRAIN WO CONTon 25-59-8315XN BRAIN WO CONTCT BRAIN WO CONT CT BRAIN WO CONT [...] by Mao Kauffman MD on 09/12/2024 3:47 PMNormalProMedica Downey Regional Medical CenterCT CTA ABD AND PELVISon 30-19-9971OA CTA ABD AND PELVISCT CTA ABD AND PELVIS CT CTA ABD [...] is normal. Adrenal glands are unchanged, small benignnodule on the left measuring about 8 mm. Minimal scarring in the kidneys with low- attenuation areasthat are too small to characterize. Some patchy [...] extrahepatic biliary tree, correlate with right upper quadrantultrasound biliary laboratory data. Surgical consultation could be obtained as indicated. * Please see above for further details. Finalized by Mao Kauffman MD on 09/12/2024 3:57 PMNormalProWadsworth-Rittman Hospitalca Downey Regional Medical CenterCT CTA ABD AORTA W RUNOFFon 53-17-6058YC CTA ABD AORTA W RUNOFFCT CTA ABD AORTA W RUNOFF EXAM: CT CTA ABD AORTA W RUNOFF CLINICAL INFORMATION: No pulses in either foot per ED. TECHNIQUE: Following the uneventful intravenous administration of 100 mL Omnipaque 350, a CT angiogram of the bilateral lower extremity runoff was obtained. Coronal, sagittal, and volume rendered 3-DMIP reformatted images were obtained from the axial [...] common femoral artery without evidence for stenosis. Theright superficial femoral artery is well opacified. There [...] The anterior tibial artery extends into the ankleand foot. There are bilateral superficial cysts of the dorsal knees, suspected popliteal cyst. The partially visualized liver is unremarkable. A distended gallbladder is present. The partially visualized kidneys are unremarkable. The pancreas is mostly not included. The spleen is not included.The adrenals are not included. There are no [...] by Paras Nixon MD on 09/12/2024 4:[address] [facility] [address] CTA CHESTon 20-57-0585UB CTA CHESTCT CTA CHEST CT CTA CHEST HISTORY: dissection, [...] Mahnaz Agudelo DO on 09/12/2024 3:49 PM Markos Castillo MD have personally reviewed the image(s) and agree with and/or edited the report Finalized by Markos Bañuelos MD on 09/12/2024 4:03 PMNormalProPermian Regional Medical CenterLACTATEon 80-02-0266Uetxyvd [Moles/Vol]1.0 mmol/LNormal0.4-2.0C[facility] Euclid HospitalComment on above:Performed By: #### CBCA, CMP, FEPR, 84492-8, TSHR, 2276-4, HA1C, 2284-8, 2131-10 #### [facility] ([id number]) [address] [facility], [address] [place] [address] #### 02570-6 #### [facility] ([id number]) [address] [place] [address] 61476HVDLIVS W/ REFLEXon 59-06-9091BTILBUE W/REFLEX1.4 mmol/LNormal 0.4-2.0Mer[facility] Health – The Jewish HospitalComment on above:Order Comment: Result did not trigger repeat Lactate,re-order if needed.Performed By: #### CBCA, PINR, 05374-9 #### [facility] ([id number]) [address] [facility], [address] [place] [address] 74936RBBQVLB W/REFLEX2.3 mmol/LHigh0.4-2.0[facility] Comment on above:Performed By: #### CBCA, CMP, FEPR, 87760-3, TSHR, 2276-4, HA1C, 2283-8, 2131-10 #### [facility] ([id number]) [address] [facility], [address] [place] [address] #### 61494-9 #### [facility] ([id number]) [address] [place] [address] 51423DFCYCCKXQmz 42-31-9371Kvthvehtg [Mass/Vol]3.1 mg/dLHigh1.8-2.6 [facility] HospitalComment on above:Performed By: #### CBCA, CMP, FEPR, 89939-6, TSHR, 6-4, HA1C, 2283-09, 2131-10 #### [facility] ([id number]) [address], [address] [place] [address] #### 42852-0 #### [facility] ([id number]) [address] [place] [address] 25387VGKAJECTL, SERUMon 57-88-4839MZDUM JUEUZGZIL96.8 ng/mLHigh 14.3-65.8ProPremier Health Miami Valley HospitalComment on above:Performed By: #### KAYCEE, PINR, 67497-7 #### [facility] ([id number]) [address], [address] [place], [place] [address]GDDPZUZTVEfj 54-12-0811UVEYKWYVRM808 mOsm/kg N8Kxgp275-521 [facility] Jewish HospitalComment on above:Performed By: #### KAYCEE, PINR, 69488-9 #### [facility] ([id number]) [address], [address] [place], [place] [address]EFSI NURSING URINE MACROSCOPIC UAon 68-78-3633FFERXPBOI KYLIE NegativeNormalNegativeCleveland Clinic Euclid HospitalComment on above:Performed By: #### CBCA, CMP, FEPR, 49285-1, TSHR, 6-4, HA1C, 2283-09, 2131-10 #### [facility] ([id number]) [address], [address] [place] [address] #### 61360-4 #### [facility] ([id number]) [address] [place] [address] 78395BTPEN/HGB NURModerateAbnormalNegativeCleveland Clinic Euclid Hospital Comment on above:Performed By: #### CBCA, CMP, FEPR, 72595-4, TSHR, 2276-4, HA1C, 4-8, 2131-10 #### [facility] ([id number]) [address], [address] [place] [address] #### 55460-1 #### [facility] ([id number]) [address] [place] [address] 38649OIQVWAZ PDT182 mg/dLAbnoalMercy Health – The Jewish Hospital Comment on above:Performed By: #### CBCA, CMP, FEPR, 84316-7, TSHR, 2276-4, HA1C, 2283-8, 2131-10 #### [facility] ([id number]) [address] [facility], [address] [place] [address] #### 13984-0 #### [facility] ([id number]) [address] [place] [address] 28506GKWVOEF NURNegativeNormalNegPomerene Hospital Comment on above:Performed By: #### CBCA, CMP, FEPR, 63409-5, TSHR, 2276-4, HA1C, 2283-, 2131-10 #### [facility] ([id number]) [address], [address] [place] [address] #### 55412-8 #### [facility] ([id number]) [address] [place] [address] 19054STHVSUCIY ESTERASE NURNegativeNormalNegativeCleveland Clinic Euclid HospitalComment on above:Performed By: #### CBCA, CMP, FEPR, 28617-1, TSHR, 2276-4, HA1C, 2283-8, 2131-10 #### [facility] ([id number]) [address] [facility], [address] [place] [address] #### 85007-7 #### [facility] ([id number]) [address] [place] [address] 80419QIAWPSV NURNegativeNormalNegativeCleveland Clinic Euclid Hospital Comment on above:Performed By: #### CBCA, CMP, FEPR, 30031-4, TSHR, 2276-4, HA1C, 2283-09, 2131-10 #### [facility] ([id number]) [address] [facility], [address] [place] [address] #### 20326-1 #### [facility] ([id number]) [address] [place] [address] 35278LZ NUR5.1Zunlhp8.0, 6.0, 6.5, 7.0, 7.5, 8.0, 8.5, 5.5ProMedica Downey Regional Medical CenterComment on above:Performed By: #### CBCA, CMP, FEPR, 33620-0, TSHR, 6-4, HA1C, 2283-09, 2131-10 #### [facility] ([id number]) [address] [facility], [address] [place] [address] #### 66550-2 #### [facility] ([id number]) [address] [place] [address] 34124LNKZSXD BEJ766 mg/dLAbnormalNegPomerene Hospital Comment on above:Performed By: #### CBCA, CMP, FEPR, 49282-6, TSHR, 2276-4, HA1C, 2283-09, 2131-10 #### [facility] ([id number]) [address] [facility], [address] [place] [address] #### 25404-8 #### [facility] ([id number]) [address] [place] [address] 98733DWUPCNAH GRAVITY NUR1.697Scafkw1.010, 1.015, 1.020, 1.025 ProMedica Downey Regional Medical CenterComment on above:Performed By: #### CBCA, CMP, FEPR, 32488-3, TSHR, 2276-4, HA1C, 2283-8, 2131-10 #### [facility] ([id number]) [address], [address] [place] [address] #### 44616-6 #### [facility] ([id number]) [address] [place] [address] 91758VOZMCDEPKRWZ NUR0.2 E.U./dLNormalCleveland Clinic Euclid Hospital Comment on above:Performed By: #### CBCA, CMP, FEPR, 26955-3, TSHR, 2276-4, HA1C, 2283-, 2131-10 #### [facility] ([id number]) [address], [address] [place] [address] #### 73702-2 #### [facility] ([id number]) [address] [place] [address] 97059LFYOYNBXEHXGCcn 48-13-5444SWHAVRFPQZAWS1.48 ng/mLHigh<0.05 [facility] HospitalComment on above:Order Comment: <0.50 ng/mL - Low risk of severe sepsis and/or septic shock.<2.00 ng/mL - Recommend retesting within 6-24 hours.>2.00 ng/mL - High risk of sepsis and/or septic shock.Performed By: #### CBCA, CMP, FEPR, 75611-0, TSHR, 2276-4, HA1C, 2283-8, 2131-10 #### [facility] ([id number]) [address], [address] [place] [address] #### 64358-6 #### [facility] ([id number]) [address] [place] [address] 24884MTGW I, HIGH SENSITIVITY 1 HOURon 24-44-6332CCKLYKMN I, HIGH OQLEBGYBNSG62 ng/LNormal<16ProPermian Regional Medical CenterComment on above:Performed By: #### CBCA, CMP, FEPR, 83091-7, TSHR, 2276-4, HA1C, 2283-8, 2131-10 #### [facility] ([id number]) [address] [place] [address], [address] [place] [address] #### 47143-2 #### [facility] ([id number]) [address] [place] [address] 24017VLQUVOES I, HIGH SENSITIVITY 0 HOURon 88-75-4509GWXOBWUA I, HIGH FZCVOHCHIBP86 ng/LNormal<16ProMedica [facility]ney Regional Medical CenterComment on above: Performed By: #### CBCA, CMP, FEPR, 96158-6, TSHR, 2276-4, HA1C, 2283-, 2131-10 #### [facility] ([id number]) [address] [place] [address], [facility] [address] [place] [address] #### 77020-3 #### [facility] ([id number]) [address] [place] [address] 27592DALKI CULTUREon 74-39-0454Nfqesont identified Cx Nom (U)CULTURE RESULTS STREPTOCOCCI, BETA HEMOLYTIC NOT GROUP A OR B 10,000-50,000 CFU/mL Streptococci, beta hemolytic not group a or bNormal Pro[facility]ica [facility] Regional Medical CenterComment on above:Performed By: #### CBCA, CMP, FEPR, 46952-9, TSHR, 2276-4, HA1C, 2283-, 2131-10 #### [facility] ([id number]) [address] [place] [address], [address] [place] [address] #### 95423-2 #### [facility] ([id number]) [address] [place] [address] 67614QG ABDOMEN LMTDon 67-56-7656CO ABDOMEN LMTDUS ABDOMEN LMTD GALLBLADDER ULTRASOUND COMPARISON: CT abdomen [...] by Leobardo Pascal MD on 09/12/2024 4:42 PMNormalProMediCorcoran District Hospital METABOLIC PANLon 89-34-1219Cojlj gap [Moles/Vol]10 mmol/LNormal 5-15ProEast [facility] City [facility] HospitalComment on above:Performed By: #### KEVIN BENOIT, 64900-4 #### [facility] ([id number]) [address], [address] [place], [place] [address]Duiatoj [Mass/Vol]9.6 mg/dLNormal8.5-10.5PAshtabula County Medical Center HospitalComment on above:Performed By: #### SURENDRA BENOITR, 06523-0 #### [facility] ([id number]) [address], [address] [place], [place] [address]Saaadvlf [Moles/Vol]99 mmol/TSnjxrr75-245GnjNxcliw [place] HospitalComment on above:Performed By: #### KEVIN BENOIT, 53864-1 #### [facility] ([id number]) [address], [address] [place], [place] [address]ER6 [Moles/Vol]25 mmol/KUclfhn85-61AkrAuraui [facility] Comment on above:Performed By: #### SURENDRA BENOITR, 36033-5 #### [facility] ([id number]) [address], [address] [place], [place] [address]Yhivfnlbhe [Mass/Vol]0.44 mg/dLNormal0.40-1.00ProPremier Health Miami Valley HospitalComment on above:Result Comment: METHOD TRACEABLE TO IDMS STANDARD Performed By: #### KEVIN BENOIT, 27795-5 #### [facility] ([id number]) [address] [address] [place], [place] [address]hCZW (CKD-EPI) NON-RACE DEPENDENT>90Normal>59ProWadsworth-Rittman Hospitalca Palmyra HospitalComment on above:Result Comment: Reported eGFR is based on the CKD-EPI 2020 equation that does not use a race coefficient.Performed By: #### KEVIN BENOIT, 56248-2 #### [facility] ([id number]) [address], [address] [place], [place] [address]Sdubfri [Mass/Vol]104 mg/tGYnfm38-36GcaTxbucjPremier Health Miami Valley Hospital Comment on above:Performed By: #### KEVIN BENOIT, 44025-8 #### [facility] ([id number]) [address] [address] [place], [place] [address]Pljltomtg [Moles/Vol]4.2 mmol/LNormal3.5-5.0ProEast [facility] City Hospital HospitalComment on above:Performed By: #### KEVIN BENOIT, 75321-9 #### [facility] ([id number]) [address], [address] [place], [place] [address]Ejlcvn [Moles/Vol]134 mmol/JGefjbd826-443WwdKywquo [place] HospitalComment on above:Performed By: #### KEVIN BENOIT, 96098-0 #### [facility] ([id number]) [address] [address] [place], [place] [address]Emmf nitrogen [Mass/Vol]8 mg/dLNormal5-27ProEast [facility] City Hospital HospitalComment on above:Performed By: #### KEVIN BENOIT, 71016-3 #### [facility] ([id number]) [address], [address] [place], [place] [address]Rjhpm Metabolic Panelon 05-23-6624Oepgn gap [Moles/Vol]10 mmol/L 5 - 15 mmol/LProMedica Health SystemCalcium [Mass/Vol]9.6 mg/dL8.5 - 10.5 mg/dL ProMlawrence medical center Health SystemChloride [Moles/Vol]99 mmol/L98 - 109 mmol/LPrColorado Mental Health Institute [facility]ueblo Health SystemCO2 [Moles/Vol]25 mmol/L22 - 32 mmol/LProMedmobile city hospital Health System Creatinine [Mass/Vol]0.44 mg/dL0.40 - 1.00 mg/dLProUniversity [facility] SystemeGFR (CKD-EPI)non-race dependent- PINFPCrystal Clinic Orthopedic Center SystemGlucose [Mass/Vol]104 mg/fLLrnu14 - 99 mg/dLAshtabula County Medical Center SystemInterpretation and review of laboratory resultsAbnormalAshtabula County Medical Center SystemPotassium [Moles/Vol]4.2 mmol/L 3.5 - 5.0 mmol/LPrColorado Mental Health Institute at Pueblo Health SystemSodium [Moles/Vol]134 mmol/L134 - 146 mmol/[facility] SystemUrea nitrogen [Mass/Vol]8 mg/dL5 - 27 mg/dL [facility] SystemCalcium.ionized (Bld) [Mass/Vol]on 25-09-2699PflGvragp Health SystemIONIZED CALCIUM5.0 mg/dLNormal4.5-5.3PKing's Daughters Medical [facility] [place] Comment on above:Performed By: #### KEVIN BENOIT, 26214-3 #### [facility] ([id number]) [address] [place] [address]Ieferva calciumon 80-45-1472Yzbunoi.ionized (Bld) [Mass/Vol]5 mg/dL4.5 - 5.3 mg/dLOhioHealth Grady Memorial HospitalMAGNESIUMon 25-09-0892Thevqxtys [Mass/Vol]2.1 mg/dLNormal1.8-2.6[facility] Jewish HospitalComment on above: Performed By: #### KEVIN BENOIT, 01003-4 #### [facility] ([id number]) [facility] [facility], [facility] [address] [place], [place] [address]Farlgibprjs 61-05-8975Crkvujbpm [Mass/Vol]2.1 mg/dL1.8 - 2.6 mg/dLOhioHealth Grady Memorial HospitalNo Panel Informationon 54-83-9280YuyDxsgnmWilson HealthPHOSPHORUSon [phone] [Mass/Vol]4.4 mg/dLNormal2.4-4.9[facility] Jewish HospitalComment on above:Performed By: #### CBCA, PINR, 18224-5 #### [facility] ([id number]) [address] [facility], [address] [place], [place] [address]Xcvyqfbwonjb [phone] [Mass/Vol]4.4 mg/dL2.4 - 4.9 mg/dLOhioHealth Grady Memorial HospitalCBC without diffon [phone] distribution width (RBC) [Ratio]13.3 %11.5 - 15.0 %[facility] Hematocrit (Bld) [Volume fraction]36.6 %35 - 47 %[facility] Hemoglobin (Bld) [Mass/Vol]12.8 g/dL11.7 - 15.5 g/dLOhioHealth Grady Memorial Hospital Interpretation and review of laboratory resultsAbnormalOhioHealth Grady Memorial Hospital MCH (RBC) [Entitic mass]33.7 pg27 - 34 [facility] HospitalMCHC (RBC) [Mass/Vol]34.9 g/dL32 - 36 g/dLOhioHealth Grady Memorial HospitalMCV (RBC) [Entitic vol]97 fL80 - 100 [facility] CenterPlatelet mean volume (Bld) [Entitic vol]7.7 fL7 - 12 [facility] CenterPlatelets (Bld) [#/Vol]388 10*3/[facility] HospitalRBC (Bld) [#/Vol]3.79 10*6/[facility] CenterWBC corrected for nucl RBC Auto (Bld) [#/Vol]7[facility] Medical CenterCOMPLETE BLOOD COUNTon 09-37-5397Ubnctslydsf distribution width (RBC) [Ratio]13.3 %Nukspy40.5-15.0[facility] Jewish HospitalComment on above: Performed By: #### 3274-8, 2951-2 #### [facility] ([id number]) [address], [address] [place], [place] [address]Savuxemccq (Bld) [Volume fraction]36.6 %Pbwxff97-71HqaYtnffw [place]ñone[place] HospitalComment on above:Performed By: #### 3274-8, 1-2 #### [facility] ([id number]) [address], [address] [place] [address]Abrnsfvoar (Bld) [Mass/Vol]12.8 g/pGSlcoux12.7-15.5[facility] HospitalComment on above:Performed By: #### 3274-8, 2950-2 #### [facility] ([id number]) [address], [address] [place], [place] [address]ZVC (RBC) [Entitic mass]33.7 mwIcvppj37-45LmiUtevqe [facility]ñonez HospitalComment on above:Performed By: #### 3274-8, 2951-2 #### [facility] ([id number]) [address], [address] [place] [address]RUZE (RBC) [Mass/Vol]34.9 g/uDUhzzml84-25VnvMinoua Quiñonez HospitalComment on above:Performed By: #### 3274-8, 2951-2 #### [facility] ([id number]) [address], [address] [place] [address]CUN (RBC) [Entitic vol]97 kODdyvkh97-488SrzRrdigf [facility]ñone[place] HospitalComment on above:Performed By: #### 3274-8, 1-2 #### [facility] ([id number]) [address], [address] [place], [place] [address]Ymggnqtn mean volume (Bld) [Entitic vol]7.7 fLNormal7-12 [facility]ñone[facility] HospitalComment on above:Performed By: #### 3274-8, 2951-2 #### [facility] ([id number]) [address], [address] [place] [address]Wdujtzwkc (Bld) [#/Vol]388 10*3/qFDjnpvv684-925RjqJvmzmo [facility]ñone[place] HospitalComment on above:Performed By: #### 3274-8, 2951-2 #### [facility] ([id number]) [address], [address] [place] [address]BED COUNT3.79 X10E12/LLow3.80-5.20[facility] Comment on above:Performed By: #### 3274-8, 2950-2 #### [facility] ([id number]) [address], [address] [place], [place] [address]DWK (Bld) [#/Vol]7.0 10*3/uLNormal4.0-11.0[facility]ñonez HospitalComment on above:Performed By: #### 3274-8, 2951-2 #### [facility] ([id number]) [address], [address] [place], [place] [address]EHIQREJOFBUVX METABOLIC PANELon 85-25-9816Avrulbf [Mass/Vol]3.9 g/dLNormal3.2-5.3[facility] HospitalComment on above:Performed By: #### 3274-8, 1-2 #### [facility] ([id number]) [address], [address] [place], [place] [address]OZB [Catalytic activity/Vol]77 U/MOnghkt84-669MwgRxbadp [facility] HospitalComment on above:Performed By: #### 3274-8, 1-2 #### [facility] ([id number]) [address], [address] [place], [place] [address]HPV [Catalytic activity/Vol]16 U/LNormal0-31[facility] HospitalComment on above:Performed By: #### 3274-8, 1-2 #### [facility] ([id number]) [address], [address] [place], [place] [address]Yivai gap [Moles/Vol]10 mmol/LNormal5-15[facility] HospitalComment on above:Performed By: #### 3274-8, 2951-2 #### [facility] ([id number]) [address], [address] [place], [place] [address]CVX [Catalytic activity/Vol]18 U/LNormal0-41[facility] HospitalComment on above:Performed By: #### 3274-8, 2951-2 #### [facility] ([id number]) [address], [address] [place], [place] [address]Wzvvfwkzg [Mass/Vol]0.4 mg/dLNormal0.3-1.2[facility] HospitalComment on above:Performed By: #### 3274-8, 1-2 #### [facility] ([id number]) [address], [address] [place], [place] [address]Ddjmioq [Mass/Vol]9.1 mg/dLNormal8.5-10.5[facility] HospitalComment on above:Performed By: #### 3274-8, 2951-2 #### [facility] ([id number]) [address], [address] [place], [place] [address]Sctaocmq [Moles/Vol]100 mmol/AOwcfbj48-111PypWkwzvm [facility] HospitalComment on above:Performed By: #### 3274-8, 2951-2 #### [facility] ([id number]) [address], [address] [place], [place] [address]GE1 [Moles/Vol]23 mmol/YOcacav12-35MlvLzyphu [facility] [facility] Comment on above:Performed By: #### 3274-8, 2951-2 #### [facility] ([id number]) [address], [address] [place] [address]Ttwjscnudj [Mass/Vol]0.48 mg/dLNormal0.40-1.00ProPremier Health Miami Valley HospitalComment on above:Result Comment: METHOD TRACEABLE TO IDMS STANDARD Performed By: #### 3274-8, 1-2 #### [facility] ([id number]) [address], [address] [place], [place] [address]yIDM (CKD-EPI) NON-RACE DEPENDENT>90Normal>59ProEast [facility] Hospital HospitalComment on above:Result Comment: Reported eGFR is based on the CKD-EPI 2020 equation that does not use a race coefficient.Performed By: #### 3274-8, 1-2 #### [facility] ([id number]) [address], [address] [place], [place] [address]Hzesmzu [Mass/Vol]105 mg/dNIuen33-04ZeoLndgvrPremier Health Miami Valley Hospital Comment on above:Performed By: #### 3274-8, 2950-2 #### [facility] ([id number]) [address], [address] [place], [place] [address]Dpdyuhfto [Moles/Vol]4.0 mmol/LNormal3.5-5.0ProPremier Health Miami Valley HospitalComment on above:Performed By: #### 3274-8, 2950-2 #### [facility] ([id number]) [address], [address] [place], [place] [address]Lvlxgwp [Mass/Vol]6.8 g/dLNormal6.0-8.0[facility] Comment on above:Performed By: #### 3274-8, 2951-2 #### [facility] ([id number]) [address], [address] [place], [place] [address]Qqjhcf [Moles/Vol]133 mmol/DJuy528-781YavXuicqnPremier Health Miami Valley Hospital Comment on above:Performed By: #### 3274-8, 2951-2 #### [facility] ([id number]) [address], [address] [place], [place] [address]Ljsl nitrogen [Mass/Vol]12 mg/dLNormal5-27ProPremier Health Miami Valley HospitalComment on above:Performed By: #### 3274-8, 2951-2 #### [facility] ([id number]) [address], [address] [place], [place] [address]Hgkwmmf.ionized (Bld) [Mass/Vol]on 80-64-6980ByiXytgyrWilson HealthIONIZED CALCIUM4.6 mg/dLNormal4.5-5.3PKing's Daughters Medical Center OhioComment on above:Performed By: #### 3274-8, 2951-2 #### [facility] ([id number]) [address], [address] [place], [place] [address]Rdkbaviofcgpk metabolic panelon 11-67-0184Bjfxnwt [Mass/Vol]3.9 g/dL3.2 - 5.3 g/dLProShelby [facility] Health SystemALP [Catalytic activity/Vol]77 U/L39 - 130 U/[facility] Health SystemALT No additional P-5'-P [Catalytic activity/Vol] 16 U/L0 - 31 U/[facility] Health SystemAnion gap [Moles/Vol]10 mmol/L5 - 15 mmol/[facility] Health SystemAST [Catalytic activity/Vol]18 U/L0 - 41 U/L [facility] SystemBilirubin [Mass/Vol]0.4 mg/dL0.3 - 1.2 mg/dLProUniversity [facility] SystemCalcium [Mass/Vol]9.1 mg/dL8.5 - 10.5 mg/dLAshtabula [facility] System Chloride [Moles/Vol]100 mmol/L98 - 109 mmol/[facility] Health SystemCO2 [Moles/Vol]23 mmol/L22 - 32 mmol/[facility] SystemCreatinine [Mass/Vol] 0.48 mg/dL0.40 - 1.00 mg/dLOhioHealth Grady Memorial HospitaleGFR (CKD-EPI)non-race dependent- PINFPClermont County HospitalGlucose [Mass/Vol]105 mg/nMHazp43 - 99 mg/dLOhioHealth Grady Memorial HospitalInterpretation and review of laboratory results AbnormalProWilson HealthPotassium [Moles/Vol]4 mmol/L3.5 - 5.0 mmol/L [facility] SystemProtein [Mass/Vol]6.8 g/dL6.0 - 8.0 g/dLSampson Regional Medical Centerodium [Moles/Vol]133 mmol/CYgu644 - 146 mmol/LProMedica Formerly Oakwood HospitalUrea nitrogen [Mass/Vol]12 mg/dL5 - 27 mg/dLOhioHealth Grady Memorial HospitalIonized calciumon 74-80-8105Tjesyqx.ionized (Bld) [Mass/Vol]4.6 mg/dL4.5 - 5.3 mg/dLOhioHealth Grady Memorial HospitalMAGNESIUMon 00-38-0932Cqtsoeimp [Mass/Vol]2.1 mg/dLNormal1.8-2.6 [facility] HospitalComment on above:Performed By: #### 3274-8, 2951-2 #### [facility] ([id number]) [address], [address] [place], [place] [address]Ilcmuylokfn 89-54-6396Qfjnscnok [Mass/Vol]2.1 mg/dL1.8 - 2.6 mg/dLOhioHealth Grady Memorial HospitalNo Panel Informationon 71-18-1280LpeZfnowgOhioHealth Grady Memorial HospitalPHOSPHORUSon 67-99-1849Ukfcxsako [Mass/Vol]4.3 mg/dLNormal2.4-4.9[facility] HospitalComment on above:Performed By: #### 3274-8, 2951-2 #### [facility] ([id number]) [address], [address] [place], [place] [address]Iwcuvzrddlti 82-60-8623Lkabzpkyq [Mass/Vol]4.3 mg/dL2.4 - 4.9 mg/dLOhioHealth Grady Memorial HospitalCBC without diffon 39-34-0043Mxtjmczkhho distribution width (RBC) [Ratio]12.8 %11.5 - 15.0 %[facility] Hematocrit (Bld) [Volume fraction]33.4 %Low35 - 47 %[facility] Hemoglobin (Bld) [Mass/Vol]11.9 g/dL11.7 - 15.5 g/dLOhioHealth Grady Memorial Hospital Interpretation and review of laboratory resultsAbnormDayton Osteopathic Hospital MCH (RBC) [Entitic mass]33.7 pg27 - 34 [facility] HospitalMCHC (RBC) [Mass/Vol]35.4 g/dL32 - 36 g/dLOhioHealth Grady Memorial HospitalMCV (RBC) [Entitic vol]95 fL80 - 100 [facility] CenterPlatelet mean volume (Bld) [Entitic vol]8.1 fL7 - 12 [facility] Medical CenterPlatelets (Bld) [#/Vol]394 10*3/[facility] HospitalRBC (Bld) [#/Vol]3.51 10*6/[facility] CenterWBC corrected for nucl RBC Auto (Bld) [#/Vol]7.3PSouthwood Psychiatric HospitalCOMPLETE BLOOD COUNTon 54-45-2145Vzkmukidxug distribution width (RBC) [Ratio]12.8 %Ndymvc37.5-15.0[facility] HospitalComment on above: Performed By: #### 3274-8, 2951-2 #### [facility] ([id number]) [address], [address] [place], [place] [address]Tnzbmiwkng (Bld) [Volume fraction]33.4 %Fkw86-43DuxVunllsMercy Health – The Jewish HospitalComment on above:Performed By: #### 3274-8, 2951-2 #### [facility] ([id number]) [address], [address] [place], [place] [address]Qqforwbrjo (Bld) [Mass/Vol]11.9 g/cZXeokne10.7-15.5PKing's Daughters Medical Center OhioComment on above:Performed By: #### 3274-8, 2951-2 #### [facility] ([id number]) [address], [address] [place], [place] [address]AUU (RBC) [Entitic mass]33.7 hmCsblaa04-72IcsUnceha [facility] HospitalComment on above:Performed By: #### 3274-8, 1-2 #### [facility] ([id number]) [address], [address] [place], [place] [address]ILVC (RBC) [Mass/Vol]35.4 g/kKChtdzx07-03TbhJytbnw [facility] HospitalComment on above:Performed By: #### 3274-8, 1-2 #### [facility] ([id number]) [address], [address] [place] [address]BZQ (RBC) [Entitic vol]95 aMOwivgc80-731RphAidwtn [facility] HospitalComment on above:Performed By: #### 3274-8, 1-2 #### [facility] ([id number]) [address], [address] [place] [address]Kqckgkbl mean volume (Bld) [Entitic vol]8.1 fLNormal7-12 [facility] HospitalComment on above:Performed By: #### 3274-8, 2950-2 #### [facility] ([id number]) [address], [address] [place], [place] [address]Bnsmjassh (Bld) [#/Vol]394 10*3/gIMkeopq718-143ZoeEhtwzk [facility] HospitalComment on above:Performed By: #### 3274-8, 2950-2 #### [facility] ([id number]) [address], [address] [place], [place] [address]GCF COUNT3.51 X10E12/LLow3.80-5.20[facility] [place] [facility] Comment on above:Performed By: #### 3274-8, 2951-2 #### [facility] ([id number]) [address], [address] [place], [place] [address]RJC (Bld) [#/Vol]7.3 10*3/uLNormal4.0-11.0[facility] HospitalComment on above:Performed By: #### 3274-8, 2951-2 #### [facility] ([id number]) [address], [address] [place], [place] [address]JOQRPQGNLJNNH METABOLIC PANELon 61-47-5968Lfsgsom [Mass/Vol]3.7 g/dLNormal3.2-5.3[facility] HospitalComment on above:Performed By: #### 3274-8, 2951-2 #### [facility] ([id number]) [address], [address] [place], [place] [address]FND [Catalytic activity/Vol]78 U/DIxlgzu81-184QueNxxfjy [facility] HospitalComment on above:Performed By: #### 3274-8, 2951-2 #### [facility] ([id number]) [address], [address] [place], [place] [address]CXT [Catalytic activity/Vol]22 U/LNormal0-31[facility] HospitalComment on above:Performed By: #### 3274-8, 2951-2 #### [facility] ([id number]) [address], [address] [place], [place] [address]Oyxdx gap [Moles/Vol]10 mmol/LNormal5-15[facility] HospitalComment on above:Performed By: #### 3274-8, 2951-2 #### [facility] ([id number]) [address], [address] [place], [place] [address]FNJ [Catalytic activity/Vol]17 U/LNormal0-41[facility] HospitalComment on above:Performed By: #### 3274-8, 2951-2 #### [facility] ([id number]) [address], [address] [place], [place] [address]Moqgxfdoq [Mass/Vol]0.4 mg/dLNormal0.3-1.2PAshtabula County Medical Center HospitalComment on above:Performed By: #### 3274-8, 1-2 #### [facility] ([id number]) [address], [address] [place] [address]Sruxxuv [Mass/Vol]9.3 mg/dLNormal8.5-10.5PAshtabula County Medical Center HospitalComment on above:Performed By: #### 3274-8, 1-2 #### [facility] ([id number]) [address], [address] [place], [place] [address]Nvmqzpyp [Moles/Vol]98 mmol/IKpeygz42-756VgnOhmmuj [place] HospitalComment on above:Performed By: #### 3274-8, 2950-2 #### [facility] ([id number]) [address], [address] [place], [place] [address]SE4 [Moles/Vol]25 mmol/NFgfdha40-53InqCxyiit [facility] Comment on above:Performed By: #### 3274-8, 2950-2 #### [facility] ([id number]) [address], [address] [place] [address]Rlgolakrpm [Mass/Vol]0.45 mg/dLNormal0.40-1.00ProPremier Health Miami Valley HospitalComment on above:Result Comment: METHOD TRACEABLE TO IDMS STANDARD Performed By: #### 3274-8, 2950-2 #### [facility] ([id number]) [address], [address] [place], [place] [address]dALW (CKD-EPI) NON-RACE DEPENDENT>90Normal>59ProEast Liverpool City Hospital HospitalComment on above:Result Comment: Reported eGFR is based on the CKD-EPI 2020 equation that does not use a race coefficient.Performed By: #### 3274-8, 1-2 #### [facility] ([id number]) [address], [address] [place], [place] [address]Dhdqtes [Mass/Vol]95 mg/fHBvrqwq13-20QhpInkygfMercy Health – [facility] Hospital Comment on above:Performed By: #### 3274-8, 1-2 #### [facility] ([id number]) [address], [address] [place], [place] [address]Egmsqseaf [Moles/Vol]4.0 mmol/LNormal3.5-5.0ProPremier Health Miami Valley HospitalComment on above:Performed By: #### 3274-8, 2951-2 #### [facility] ([id number]) [address], [address] [place], [place] [address]Bjosokc [Mass/Vol]6.9 g/dLNormal6.0-8.0[facility] Comment on above:Performed By: #### 3274-8, 2951-2 #### [facility] ([id number]) [address], [address] [place], [place] [address]Ifgrfx [Moles/Vol]133 mmol/SDvf740-537TdqJgdjxnPremier Health Miami Valley Hospital Comment on above:Performed By: #### 3274-8, 2951-2 #### [facility] ([id number]) [address], [address] [place], [place] [address]Jvfa nitrogen [Mass/Vol]13 mg/dLNormal5-27ProPremier Health Miami Valley HospitalComment on above:Performed By: #### 3274-8, 1-2 #### [facility] ([id number]) [address], [address] [place], [place] [address]Fxkserj.ionized (Bld) [Mass/Vol]on 06-37-0309LeySziquq Health SystemIONIZED CALCIUM4.5 mg/dLNormal4.5-5.3ProMedCrystal Clinic Orthopedic CenterComment on above:Performed By: #### 3274-8, 2951-2 #### [facility] ([id number]) [address], [address] [place], [place] [address]Yyywtqvawojmr metabolic panelon 93-96-6156Gfthehq [Mass/Vol]3.7 g/dL3.2 - 5.3 g/dLProWadsworth-Rittman Hospitalca Health SystemALP [Catalytic activity/Vol]78 U/L39 - 130 U/LProMedica Health SystemALT No additional P-5'-P [Catalytic activity/Vol] 22 U/L0 - 31 U/LProMedica Health SystemAnion gap [Moles/Vol]10 mmol/L5 - 15 mmol/LProMedica Health SystemAST [Catalytic activity/Vol]17 U/L0 - 41 U/L [facility] SystemBilirubin [Mass/Vol]0.4 mg/dL0.3 - 1.2 mg/dLProWadsworth-Rittman Hospitalca Health SystemCalcium [Mass/Vol]9.3 mg/dL8.5 - 10.5 mg/dLProMedica Health System Chloride [Moles/Vol]98 mmol/L98 - 109 mmol/LProMedica Health SystemCO2 [Moles/Vol]25 mmol/L22 - 32 mmol/[facility] HospitaloMedica Health SystemCreatinine [Mass/Vol] 0.45 mg/dL0.40 - 1.00 mg/dLProWadsworth-Rittman Hospitalca Health SystemeGFR (CKD-EPI)non-race dependent- PINFPWomen's and Children's Hospital Health SystemGlucose [Mass/Vol]95 mg/dL65 - 99 mg/dL [facility] Hospitala Health SystemInterpretation and review of laboratory resultsAbnormal [facility] SystemPotassium [Moles/Vol]4 mmol/L3.5 - 5.0 mmol/LProMedica Health SystemProtein [Mass/Vol]6.9 g/dL6.0 - 8.0 g/dLProWadsworth-Rittman Hospitalca Health System Sodium [Moles/Vol]133 mmol/FAbw172 - 146 mmol/LProMedica Health SystemUrea nitrogen [Mass/Vol]13 mg/dL5 - 27 mg/dLSt. Anthony's Hospitalca Health SystemIonized calciumon 61-93-7942Rqfrwpd.ionized (Bld) [Mass/Vol]4.5 mg/dL4.5 - 5.3 mg/dLProWadsworth-Rittman Hospitalca [facility] SystemMAGNESIUMon 02-14-0851Ntdhrnulf [Mass/Vol]2.0 mg/dLNormal1.8-2.6 [facility] HospitalComment on above:Performed By: #### 3274-8, 2951-2 #### [facility] ([id number]) [address], [address] [place], [place] [address]Ngronhpcjmj 29-12-6376Gapygzahz [Mass/Vol]2 mg/dL1.8 - 2.6 mg/dL [facility] HospitalNo Panel Informationon 24-09-7115WlqHcypbaOhioHealth Grady Memorial Hospital PHOSPHORUSon 51-91-2627Zirsbrhfe [Mass/Vol]4.3 mg/dLNormal2.4-4.9[facility] HospitalComment on above:Performed By: #### 3274-8, 2951-2 #### [facility] ([id number]) [address], [address] [place], [place] [address]Tmkrhguokmzf 09-73-1177Nofjqceel [Mass/Vol]4.3 mg/dL2.4 - 4.9 mg/dLOhioHealth Grady Memorial HospitalCBC without diffon 95-73-5484Giyektztbxe distribution width (RBC) [Ratio]12.9 %11.5 - 15.0 %[facility] Hematocrit (Bld) [Volume fraction]38.1 %35 - 47 %[facility] Hemoglobin (Bld) [Mass/Vol]13.5 g/dL11.7 - 15.5 g/dLMain Campus Medical CenterH (RBC) [Entitic mass]33.9 pg27 - 34 [facility] HospitalHC (RBC) [Mass/Vol]35.3 g/dL32 - 36 g/dLOhioHealth Grady Memorial HospitalMCV (RBC) [Entitic vol]96 fL80 - 100 [facility] CenterPlatelet mean volume (Bld) [Entitic vol]8.1 fL7 - 12 [facility] CenterPlatelets (Bld) [#/Vol]426 10*3/[facility] HospitalRBC (Bld) [#/Vol]3.97 10*6/[facility] HospitalWBC corrected for nucl RBC Auto (Bld) [#/Vol]8.4[facility] COMPLETE BLOOD COUNTon 73-27-8958Rszvvwnkzld distribution width (RBC) [Ratio] 12.9 %Tbkgvr23.5-15.0[facility] HospitalComment on above:Performed By: #### RAMOS, , THYR #### [facility] ([id number]) [address], [address] [place], [place] [address]Peppudgnef (Bld) [Volume fraction]38.1 %Buzxbf09-37YxdBhjave [place] HospitalComment on above:Performed By: #### RAMOS, , THYR #### [facility] ([id number]) [address], [address] [place], [place] [address]Xidzttsgux (Bld) [Mass/Vol]13.5 g/dAXnfjme89.7-15.5PAshtabula County Medical Center HospitalComment on above:Performed By: #### RAMOS, , THYR #### [facility] ([id number]) [address], [address] [place], [place] [address]VTG (RBC) [Entitic mass]33.9 qxMicqve63-22HctTqpkit [place] HospitalComment on above:Performed By: #### RAMOS, , THYR #### [facility] ([id number]) [address], [address] [place], [place] [address]JUCI (RBC) [Mass/Vol]35.3 g/vKNlcuwn13-93PajEadlbp [place] HospitalComment on above:Performed By: #### RAMOS, , THYR #### [facility] ([id number]) [address], [address] [place], [place] [address]FKT (RBC) [Entitic vol]96 eZUnjaeo28-619IcjNqnghn [place] HospitalComment on above:Performed By: #### RAMOS, , THYR #### [facility] ([id number]) [address], [address] [place] [address]Xwfnfsjx mean volume (Bld) [Entitic vol]8.1 fLNormal7-12 [facility] HospitalComment on above:Performed By: #### RAMOS, , THYR #### [facility] ([id number]) [address], [address] [place], [place] [address]Balfxjehn (Bld) [#/Vol]426 10*3/kSQwqrye676-845ZtgGuyhac [facility] HospitalComment on above:Performed By: #### RAMOS, , THYR #### [facility] ([id number]) [address], [address] [place], [place] [address]BKS COUNT3.97 X10E12/LNormal3.80-5.20[facility] Comment on above:Performed By: #### RAMOS, , THYR #### [facility] ([id number]) [address], [address] [place], [place] [address]LWC (Bld) [#/Vol]8.4 10*3/uLNormal4.0-11.0[facility] HospitalComment on above:Performed By: #### RAMOS, , THYR #### [facility] ([id number]) [address], [address] [place], [place] [address]BFXIHLODAWGCM METABOLIC PANELon 23-00-8554Qjyrabr [Mass/Vol]4.2 g/dLNormal3.2-5.3[facility] HospitalComment on above:Performed By: #### RAMOS, , THYR #### [facility] ([id number]) [address], [address] [place], [place] [address]KFW [Catalytic activity/Vol]93 U/VStmqcn54-631MsxTyvkuw [facility]ñoenz HospitalComment on above:Performed By: #### RAMOS, , THYR #### [facility] ([id number]) [address], [address] [place], [place] [address]GMX [Catalytic activity/Vol]22 U/LNormal0-31[facility] HospitalComment on above:Performed By: #### RAMOS, , THYR #### [facility] ([id number]) [address], [address] [place], [place] [address]Wtotq gap [Moles/Vol]9 mmol/LNormal5-15[facility] Comment on above:Performed By: #### RAMOS, , THYR #### [facility] ([id number]) [address], [address] [place], [place] [address]HLV [Catalytic activity/Vol]27 U/LNormal0-41[facility] HospitalComment on above:Performed By: #### RAMOS, , THYR #### [facility] ([id number]) [address], [address] [place], [place] [address]Vgvsdxtju [Mass/Vol]0.5 mg/dLNormal0.3-1.2[facility] HospitalComment on above:Performed By: #### RAMOS, , THYR #### [facility] ([id number]) [address], [address] [place], [place] [address]Nndtyiu [Mass/Vol]9.8 mg/dLNormal8.5-10.5[facility] HospitalComment on above:Performed By: #### RAMOS, , THYR #### [facility] ([id number]) [address], [address] [place], [place] [address]Hadalfsc [Moles/Vol]99 mmol/WDvxhbh37-522MvoMharzl [facility] HospitalComment on above:Performed By: #### RAMOS, , THYR #### [facility] ([id number]) [address], [address] [place], [place] [address]CN3 [Moles/Vol]27 mmol/LGabzgv32-39ArbLymthcKing's Daughters Medical Center [place] Comment on above:Performed By: #### RAMOS, , THYR #### [facility] ([id number]) [address], [address] [place], [place] [address]Dmhvhmcjwo [Mass/Vol]0.46 mg/dLNormal0.40-1.00ProPremier Health Miami Valley HospitalComment on above:Result Comment: METHOD TRACEABLE TO IDMS STANDARD Performed By: #### RAMOS, , THYR #### [facility] ([id number]) [address], [address] [place], [place] [address]jMRL (CKD-EPI) NON-RACE DEPENDENT>90Normal>59ProPremier Health Miami Valley HospitalComment on above:Result Comment: Reported eGFR is based on the CKD-EPI 2020 equation that does not use a race coefficient.Performed By: #### RAMOS, , THYR #### [facility] ([id number]) [address], [address] [place], [place] [address]Zbytchy [Mass/Vol]92 mg/bOIwchke23-26EbbBrklewMercy Health – The Jewish Hospital Comment on above:Performed By: #### RAMOS, , THYR #### [facility] ([id number]) [address], [address] [place], [place] [address]Bjhgmlkwi [Moles/Vol]3.9 mmol/LNormal3.5-5.0ProPremier Health Miami Valley HospitalComment on above:Performed By: #### RAMOS, , THYR #### [facility] ([id number]) [address], [address] [place], [place] [address]Pctcrfp [Mass/Vol]7.4 g/dLNormal6.0-8.0[facility] Comment on above:Performed By: #### RAMOS, 46288-8, THYR #### [facility] ([id number]) [address], [address] [place], [place] [address]Jtggxu [Moles/Vol]135 mmol/GVokdmk972-686YapGfcitp Toledo HospitalComment on above:Performed By: #### RAMOS, , THYR #### [facility] ([id number]) [address], [address] [place], [place] [address]Cjhq nitrogen [Mass/Vol]6 mg/dLNormal5-27ProPremier Health [facility] Valley HospitalComment on above:Performed By: #### RAMOS, , THYR #### [facility] ([id number]) [address], [address] [place], [place] [address]Xslzrae.ionized (Bld) [Mass/Vol]on 62-79-0888IjzKvlzek Health SystemIONIZED CALCIUM5.0 mg/dLNormal4.5-5.3PKing's Daughters Medical Center OhioComment on above:Performed By: #### RAMOS, 11432-2, THYR #### [facility] ([id number]) [address], [address] [place], [place] [address]Cylaiwnerupnd metabolic panelon 10-91-6244Dkxhsry [Mass/Vol]4.2 g/dL3.2 - 5.3 g/dLProMedica Health SystemALP [Catalytic activity/Vol]93 U/L39 - 130 U/LProMedica Health SystemALT No additional P-5'-P [Catalytic activity/Vol] 22 U/L0 - 31 U/LProMedica Health SystemAnion gap [Moles/Vol]9 mmol/L5 - 15 mmol/LProMedica Health SystemAST [Catalytic activity/Vol]27 U/L0 - 41 U/L [facility] Health SystemBilirubin [Mass/Vol]0.5 mg/dL0.3 - 1.2 mg/dLProMedica Health SystemCalcium [Mass/Vol]9.8 mg/dL8.5 - 10.5 mg/dLProMedica Health System Chloride [Moles/Vol]99 mmol/L98 - 109 mmol/[facility] SystemCO2 [Moles/Vol]27 mmol/L22 - 32 mmol/[facility] SystemCreatinine [Mass/Vol] 0.46 mg/dL0.40 - 1.00 mg/dLAshtabula County Medical Center SystemeGFR (CKD-EPI)non-race dependent- PINFPCrystal Clinic Orthopedic Center SystemGlucose [Mass/Vol]92 mg/dL65 - 99 mg/dL ProMNorth Shore Health SystemPotassium [Moles/Vol]3.9 mmol/L3.5 - 5.0 mmol/LPrColorado Mental Health Institute [facility] Health SystemProtein [Mass/Vol]7.4 g/dL6.0 - 8.0 g/dLAshtabula County Medical Center System Sodium [Moles/Vol]135 mmol/L134 - 146 mmol/[facility] SystemUrea nitrogen [Mass/Vol]6 mg/dL5 - 27 mg/dLAshtabula County Medical Center SystemIonized calciumon 22-63-0586Mbdkkrc.ionized (Bld) [Mass/Vol]5 mg/dL4.5 - 5.3 mg/dLOhioHealth Grady Memorial HospitalMAGNESIUMon 18-03-7643Ckdtadoxb [Mass/Vol]2.1 mg/dLNormal1.8-2.6[facility] Jewish HospitalComment on above:Performed By: #### RAMOS, 96924-6, THYR #### [facility] ([id number]) [address] [facility], [address] [place], [place] [address]Wwowgsoygdl 08-92-5530Gaspvcwro [Mass/Vol]2.1 mg/dL1.8 - 2.6 mg/dLOhioHealth Grady Memorial HospitalNo Panel Informationon 74-79-0549HfiRwoxag Health SystemPHOSPHORUSon 24-89-0754Jndjunked [Mass/Vol]3.9 mg/dLNormal2.4-4.9ProPremier Health Miami Valley HospitalComment on above:Performed By: #### RAMOS, 45707-3, THYR #### [facility] ([id number]) [address] [facility] [address], [address] [place], [place] [address]Ikvzxgfryjkq 74-81-6831Rgozsnovn [Mass/Vol]3.9 mg/dL2.4 - 4.9 mg/dLOhioHealth Grady Memorial HospitalCBC without diffon 67-33-7237Xkspyovhufr distribution width (RBC) [Ratio]13 %11.5 - 15.0 %[facility] Hematocrit (Bld) [Volume fraction]35.3 %35 - 47 %[facility] Hemoglobin (Bld) [Mass/Vol]12.3 g/dL11.7 - 15.5 g/dLOhioHealth Grady Memorial Hospital Interpretation and review of laboratory resultsAbnormalOhioHealth Grady Memorial Hospital MCH (RBC) [Entitic mass]33.2 pg27 - 34 [facility] HospitalMCHC (RBC) [Mass/Vol]34.9 g/dL32 - 36 g/dLOhioHealth Grady Memorial HospitalMCV (RBC) [Entitic vol]95 fL80 - 100 [facility] CenterPlatelet mean volume (Bld) [Entitic vol]8.2 fL7 - 12 [facility] CenterPlatelets (Bld) [#/Vol]334 10*3/[facility] HospitalRBC (Bld) [#/Vol]3.71 10*6/[facility] CenterWBC corrected for nucl RBC Auto (Bld) [#/Vol]7.7[facility] Medical CenterCOMPLETE BLOOD COUNTon 77-66-3878Iupuykpaamc distribution width (RBC) [Ratio]13.0 %Rfcuma35.5-15.0[facility] Jewish HospitalComment on above: Performed By: #### RAMOS, 19208-4, THYR #### [facility] ([id number]) [address], [address] [place], [place] [address]Mktcpeqrjk (Bld) [Volume fraction]35.3 %Todjaz14-63IfuSaamgbPremier Health Miami Valley HospitalComment on above:Performed By: #### RAMOS, 35495-5, THYR #### [facility] ([id number]) [address], [address] [place], [place] [address]Showdumito (Bld) [Mass/Vol]12.3 g/nRJojtqu85.7-15.5ProMedica Qu[facility]ñonez HospitalComment on above:Performed By: #### RAMOS, , THYR #### [facility] ([id number]) [address], [address] [place], [place] [address]RZG (RBC) [Entitic mass]33.2 nhZoailn94-90PbwSukqus [facility]ñonez HospitalComment on above:Performed By: #### RAMOS, , THYR #### [facility] ([id number]) [address], [address] [place], [place] [address]RGAV (RBC) [Mass/Vol]34.9 g/mXWxmscz38-85HsnLiarjk [facility]ñonez HospitalComment on above:Performed By: #### RAMOS, , THYR #### [facility] ([id number]) [address], [address] [place], [place] [address]VHK (RBC) [Entitic vol]95 lSIhslkw09-172LsgCevxhq [facility]z HospitalComment on above:Performed By: #### RAMOS, , THYR #### [facility] ([id number]) [address], [address] [place], [place] [address]Kbpxofpe mean volume (Bld) [Entitic vol]8.2 fLNormal7-12 [facility]ñonez HospitalComment on above:Performed By: #### RAMOS, , THYR #### [facility] ([id number]) [address], [address] [place], [place] [address]Aqyidxgxi (Bld) [#/Vol]334 10*3/eJAqedra614-678XkfEmopmz [facility]ñonez HospitalComment on above:Performed By: #### RAMOS, , THYR #### [facility] ([id number]) [address], [address] [place], [place] [address]LXF COUNT3.71 X10E12/LLow3.80-5.20ProWadsworth-Rittman Hospitalca [facility] Comment on above:Performed By: #### RAMOS, , THYR #### [facility] ([id number]) [address], [address] [place], [place] [address]OFU (Bld) [#/Vol]7.7 10*3/uLNormal4.0-11.0ProMedica [facility]ñonez HospitalComment on above:Performed By: #### RAMOS, , THYR #### [facility] ([id number]) [address], [address] [place], [place] [address]JDYBAKPSDOIOL METABOLIC PANELon 77-65-4194Zxvhgnn [Mass/Vol]3.6 g/dLNormal3.2-5.3ProMedica [facility]ñonez HospitalComment on above:Performed By: #### RAMOS, , THYR #### [facility] ([id number]) [address], [address] [place], [place] [address]LVN [Catalytic activity/Vol]83 U/VVgmgeb29-337HonKoxkse [facility]ñonez HospitalComment on above:Performed By: #### RAMOS, , THYR #### [facility] ([id number]) [address], [address] [place], [place] [address]LMW [Catalytic activity/Vol]19 U/LNormal0-31ProMedmobile city hospital [facility]ñonez HospitalComment on above:Performed By: #### RAMOS, , THYR #### [facility] ([id number]) [address], [address] [place], [place] [address]Sflln gap [Moles/Vol]9 mmol/LNormal5-15ProShel[facility] Comment on above:Performed By: #### RAMOS, , THYR #### [facility] ([id number]) [address], [address] [place], [place] [address]TVH [Catalytic activity/Vol]19 U/LNormal0-41ProShelby [facility] Center [facility]ñonez HospitalComment on above:Performed By: #### RAMOS, , THYR #### [facility] ([id number]) [address], [address] [place], [place] [address]Vpzzobqta [Mass/Vol]0.4 mg/dLNormal0.3-1.2PAshtabula County Medical Center HospitalComment on above:Performed By: #### RAMOS, , THYR #### [facility] ([id number]) [address], [address] [place], [place] [address]Qdputxe [Mass/Vol]8.9 mg/dLNormal8.5-10.5PAshtabula County Medical Center HospitalComment on above:Performed By: #### RAMOS, , THYR #### [facility] ([id number]) [address], [address] [place], [place] [address]Bsxkuazn [Moles/Vol]101 mmol/LSduwgc29-978ZmzNugujm [place] HospitalComment on above:Performed By: #### RAMOS, , THYR #### [facility] ([id number]) [address], [address] [place], [place] [address]ZU6 [Moles/Vol]25 mmol/QTiliyi09-45ZzpIciyit [facility] Comment on above:Performed By: #### RAMOS, , THYR #### [facility] ([id number]) [address], [address] [place], [place] [address]Qjdugvhdit [Mass/Vol]0.52 mg/dLNormal0.40-1.00ProEast [facility] City Hospital HospitalComment on above:Result Comment: METHOD TRACEABLE TO IDMS STANDARD Performed By: #### RAMOS, , THYR #### [facility] ([id number]) [address], [address] [place], [place] [address]cWJZ (CKD-EPI) NON-RACE DEPENDENT>90Normal>59ProEast Liverpool City Hospital HospitalComment on above:Result Comment: Reported eGFR is based on the CKD-EPI 2020 equation that does not use a race coefficient.Performed By: #### RAMOS, , THYR #### [facility] ([id number]) [address], [address] [place], [place] [address]Pyynsqi [Mass/Vol]100 mg/hCIgpm53-74IamVbflcjPremier Health Miami Valley Hospital Comment on above:Performed By: #### RAMOS, , THYR #### [facility] ([id number]) [address], [address] [place], [place] [address]Brbluaugh [Moles/Vol]4.0 mmol/LNormal3.5-5.0ProPremier Health Miami Valley HospitalComment on above:Performed By: #### RAMOS, , THYR #### [facility] ([id number]) [address], [address] [place], [place] [address]Azucrqs [Mass/Vol]6.7 g/dLNormal6.0-8.0[facility] Comment on above:Performed By: #### RAMOS, , THYR #### [facility] ([id number]) [address], [address] [place], [place] [address]Dkmxxe [Moles/Vol]135 mmol/VJzwxhj842-615QppPsmiew [place] HospitalComment on above:Performed By: #### RAMOS, , THYR #### [facility] ([id number]) [address], [address] [place], [place] [address]Dncf nitrogen [Mass/Vol]7 mg/dLNormal5-27ProPremier Health Miami Valley HospitalComment on above:Performed By: #### RAMOS, , THYR #### [facility] ([id number]) [address], [address] [place], [place] [address]Bldmluu.ionized (Bld) [Mass/Vol]on 66-39-8044Euuvfffamywkng and review of laboratory resultsAbnormalProMedica Health SystemProMedica Health SystemIONIZED CALCIUM4.2 mg/dLLow4.5-5.3PKing's Daughters Medical Center OhioComment on above:Performed By: #### CMP, 26363-8, THYR #### [facility] ([id number]) [address] [facility] [address], [address] [place], [place] [address]Ynndowblbdihx metabolic panelon 63-73-0790Ibroyqv [Mass/Vol]3.6 g/dL3.2 - 5.3 g/dLProMedica Health SystemALP [Catalytic activity/Vol]83 U/L39 - 130 U/LProMedica Health SystemALT No additional P-5'-P [Catalytic activity/Vol] 19 U/L0 - 31 U/LProMedica Health SystemAnion gap [Moles/Vol]9 mmol/L5 - 15 mmol/LProMedica Health SystemAST [Catalytic activity/Vol]19 U/L0 - 41 U/L [facility] Health SystemBilirubin [Mass/Vol]0.4 mg/dL0.3 - 1.2 mg/dLProMedica Health SystemCalcium [Mass/Vol]8.9 mg/dL8.5 - 10.5 mg/dLProMedica Health System Chloride [Moles/Vol]101 mmol/L98 - 109 mmol/LProMedica Health SystemCO2 [Moles/Vol]25 mmol/L22 - 32 mmol/LProMedica Health SystemCreatinine [Mass/Vol] 0.52 mg/dL0.40 - 1.00 mg/dLProWadsworth-Rittman Hospitalca Health SystemeGFR (CKD-EPI)non-race dependent- PINFPWomen's and Children's Hospital Health SystemGlucose [Mass/Vol]100 mg/kUQuuk18 - 99 mg/dLProWadsworth-Rittman Hospitalca Health SystemInterpretation and review of laboratory results AbnormalProMedica Health SystemPotassium [Moles/Vol]4 mmol/L3.5 - 5.0 mmol/L [facility] Health SystemProtein [Mass/Vol]6.7 g/dL6.0 - 8.0 g/dLProMedica Health SystemSodium [Moles/Vol]135 mmol/L134 - 146 mmol/LProMedica Health SystemUrea nitrogen [Mass/Vol]7 mg/dL5 - 27 mg/dLAshtabula County Medical Center SystemGlucose Glucometer (BldC) [Mass/Vol]on 66-14-5727Mhvuagi [Mass/Vol]86 mg/dL65 - 99 mg/dLProShelby [facility] Center Health SystemProMedica Health SystemGlucose [Mass/Vol]86 mg/fNXjoygn86-58 [facility] HospitalIonized calciumon 33-13-1957Rbyhbcm.ionized (Bld) [Mass/Vol]4.2 mg/dLLow4.5 - 5.3 mg/dLProWilson HealthMAGNESIUMon 19-03-9722Pvdximcnb [Mass/Vol]2.0 mg/dLNormal1.8-2.6[facility] Comment on above:Performed By: #### RAMOS, 56639-0, THYR #### [facility] ([id number]) [address] [place] [address], [address] [place], [place] [address]Tvqthywjsde 96-81-5660Fphgpkfvt [Mass/Vol]2 mg/dL1.8 - 2.6 mg/dL [facility] HospitalNo Panel Informationon 68-60-7634WtsSxrwkaOhioHealth Grady Memorial Hospital PHOSPHORUSon 29-98-7494Qxalysgwm [Mass/Vol]4.3 mg/dLNormal2.4-4.9[facility] HospitalComment on above:Performed By: #### RAMOS, 45164-7, THYR #### [facility] ([id number]) [address] [facility] [address] [address], [address] [place], [place] [address]Sqavlhrwuune 98-14-3358Lsacfraux [Mass/Vol]4.3 mg/dL2.4 - 4.9 mg/dLAshtabula County Medical Center SystemThiamin (Vitamin B1), WBon 69-24-5022Rbffijud (Bld) [Moles/Vol]68 nmol/LLow70 - 180 nmol/LProMedica Health SystemThiamine (Bld) [Moles/Vol]56 nmol/LLow70 - 180 nmol/LProMedica Health SystemThiamine (Bld) [Moles/Vol]on 84-60-3195Cruzmqoifxnnqt and review of laboratory resultsAbnormal [facility] Medical CenterInterpretation and review of laboratory resultsAbnormalPenn State Health Milton S. Hershey Medical CenterCBC without diffon 71-89-8399Asqwfajfjre distribution width (RBC) [Ratio]12.8 %11.5 - 15.0 %[facility] HospitalHematocrit (Bld) [Volume fraction]32.9 %Low35 - 47 %[facility] HospitalHemoglobin (Bld) [Mass/Vol]11.8 g/dL11.7 - 15.5 g/dL [facility] HospitalInterpretation and review of laboratory resultsAbnormal [facility] HospitalMCH (RBC) [Entitic mass]33.8 pg27 - 34 [facility] HospitalMCHC (RBC) [Mass/Vol]35.8 g/dL32 - 36 g/dLOhioHealth Grady Memorial HospitalMCV (RBC) [Entitic vol]94 fL80 - 100 [facility] CenterPlatelet mean volume (Bld) [Entitic vol]8.3 fL7 - 12 [facility] CenterPlatelets (Bld) [#/Vol]305 10*3/[facility] HospitalRBC (Bld) [#/Vol]3.49 10*6/[facility] CenterWBC corrected for nucl RBC Auto (Bld) [#/Vol]7.9[facility] HospitalCOMPLETE BLOOD COUNTon 42-20-4657Zcbxntgoimx distribution width (RBC) [Ratio]12.8 %Phjoij22.5-15.0[facility] HospitalComment on above:Performed By: #### CMP, 65858-4, THYR #### [facility] ([id number]) [address] [facility], [address] [place], [place] [address]Bajgnrteql (Bld) [Volume fraction]32.9 %Xwa97-34ZepDdusdwMercy Health – The Jewish HospitalComment on above:Performed By: #### CMP, 86993-7, THYR #### [facility] ([id number]) [address] [facility], [address] [place], [place] [address]Dyizktmihu (Bld) [Mass/Vol]11.8 g/kFXjrldb85.7-15.5ProMedica [facility]z HospitalComment on above:Performed By: #### RAMOS, , THYR #### [facility] ([id number]) [address], [address] [place] [address]VVU (RBC) [Entitic mass]33.8 sfEitbtz19-37FofOxwmsf [facility]z HospitalComment on above:Performed By: #### CMP, , THYR #### [facility] ([id number]) [address], [address] [place], [place] [address]GPCP (RBC) [Mass/Vol]35.8 g/fDIvdlpd61-03FvhRemhdz [facility] HospitalComment on above:Performed By: #### RAMOS, , THYR #### [facility] ([id number]) [address], [address] [place], [place] [address]NRA (RBC) [Entitic vol]94 kOCqpinf88-663YbcYjuqin [facility] HospitalComment on above:Performed By: #### RAOMS, , THYR #### [facility] ([id number]) [address], [address] [place] [address]Slfednis mean volume (Bld) [Entitic vol]8.3 fLNormal7-12 [facility] HospitalComment on above:Performed By: #### CMP, , THYR #### [facility] ([id number]) [address], [address] [place] [address]Jepqpfwon (Bld) [#/Vol]305 10*3/sTZydoop328-303WyeSqorgi [facility] HospitalComment on above:Performed By: #### RAMOS, , THYR #### [facility] ([id number]) [address], [address] [place], [place] [address]PMX COUNT3.49 X10E12/LLow3.80-5.20Pro[facility] Hospital Comment on above:Performed By: #### RAMOS, , THYR #### [facility] ([id number]) [address], [address] [place], [place] [address]XFY (Bld) [#/Vol]7.9 10*3/uLNormal4.0-11.0ProWadsworth-Rittman Hospitalca [place] HospitalComment on above:Performed By: #### RAMOS, , THYR #### [facility] ([id number]) [address], [facility] [address] [place] [address]HAVEVFDWASMTR METABOLIC PANELon 40-94-2664Lymaatk [Mass/Vol]3.4 g/dLNormal3.2-5.3Pro[facility] HospitalComment on above:Performed By: #### RAMOS, , THYR #### [facility] ([id number]) [address], [address] [place], [place] [address]KOO [Catalytic activity/Vol]85 U/YOxyhtm41-524NlaPbihnf [place] HospitalComment on above:Performed By: #### RAMOS, , THYR #### [facility] ([id number]) [address], [address] [place], [place] [address]AQF [Catalytic activity/Vol]14 U/LNormal0-31ProMedBarnesville Hospital HospitalComment on above:Performed By: #### RAMOS, , THYR #### [facility] ([id number]) [address], [address] [place], [place] [address]Yqywz gap [Moles/Vol]8 mmol/LNormal5-15Pro[facility] Hospital Comment on above:Performed By: #### RAMOS, , THYR #### [facility] ([id number]) [address], [address] [place], [place] [address]RWF [Catalytic activity/Vol]16 U/LNormal0-41Pro[facility]ica [facility] HospitalComment on above:Performed By: #### RAMOS, , THYR #### [facility] ([id number]) [address], [address] [place], [place] [address]Reyxbnnpg [Mass/Vol]0.6 mg/dLNormal0.3-1.2Pro[facility] HospitalComment on above:Performed By: #### RAMOS, , THYR #### [facility] ([id number]) [address], [address] [place], [place] [address]Tycndhu [Mass/Vol]8.6 mg/dLNormal8.5-10.5Pro[facility] HospitalComment on above:Performed By: #### RAMOS, , THYR #### [facility] ([id number]) [address], [address] [place], [place] [address]Rcovdfnb [Moles/Vol]100 mmol/ULqfqsj16-320ZrnCpibtj [facility] HospitalComment on above:Performed By: #### RAMOS, , THYR #### [facility] ([id number]) [address], [address] [place], [place] [address]MX2 [Moles/Vol]25 mmol/SIkdwui27-07QgbPgaces [facility] Comment on above:Performed By: #### RAMOS, , THYR #### [facility] ([id number]) [address], [address] [place], [place] [address]Rjhbbrpizl [Mass/Vol]0.42 mg/dLNormal0.40-1.00Pro[facility]ica [facility] HospitalComment on above:Result Comment: METHOD TRACEABLE TO IDMS STANDARD Performed By: #### RAMOS, , THYR #### [facility] ([id number]) [address], [address] [place], [place] [address]oRXH (CKD-EPI) NON-RACE DEPENDENT>90Normal>59ProEast [facility] City [facility] HospitalComment on above:Result Comment: Reported eGFR is based on the CKD-EPI 2020 equation that does not use a race coefficient.Performed By: #### RAMOS, , THYR #### [facility] ([id number]) [address], [address] [place], [place] [address]Brngerf [Mass/Vol]94 mg/wKQtizse04-96BecFoekql [facility] Comment on above:Performed By: #### RAMOS, , THYR #### [facility] ([id number]) [address] [address] [place], [place] [address]Hmszltgnl [Moles/Vol]3.5 mmol/LNormal3.5-5.0ProPremier Health Miami Valley HospitalComment on above:Performed By: #### RAMOS, , THYR #### [facility] ([id number]) [address] [address] [place], [place] [address]Mwfffij [Mass/Vol]6.0 g/dLNormal6.0-8.0[facility] Comment on above:Performed By: #### RAMOS, , THYR #### [facility] ([id number]) [address] [address] [place], [place] [address]Svupvi [Moles/Vol]133 mmol/GBcz885-884MezYejnknPremier Health Miami [facility] Hospital Comment on above:Performed By: #### RAMOS, , THYR #### [facility] ([id number]) [address] [address] [place], [place] [address]Rjji nitrogen [Mass/Vol]6 mg/dLNormal5-27ProPremier Health Miami Valley HospitalComment on above:Performed By: #### RAMOS, , THYR #### [facility] ([id number]) [address] [facility] [facility] [address] [place], [place] [address]Wpfkijt.ionized (Bld) [Mass/Vol]on 94-34-2765AcpAcklil Health SystemIONIZED CALCIUM4.6 mg/dLNormal4.5-5.3PKing's Daughters Medical Center OhioComment on above:Performed By: #### CMP, 80967-5, THYR #### [facility] ([id number]) [address] [facility], [address] [place], [place] [address]Chirmostnbyhd metabolic panelon 96-15-9058Jueriws [Mass/Vol]3.4 g/dL3.2 - 5.3 g/dLProWadsworth-Rittman Hospitalca Health SystemALP [Catalytic activity/Vol]85 U/L39 - 130 U/LProMedica Health SystemALT No additional P-5'-P [Catalytic activity/Vol] 14 U/L0 - 31 U/LProMedica Health SystemAnion gap [Moles/Vol]8 mmol/L5 - 15 mmol/LProMedica Health SystemAST [Catalytic activity/Vol]16 U/L0 - 41 U/L [facility] Hospitaledica Health SystemBilirubin [Mass/Vol]0.6 mg/dL0.3 - 1.2 mg/dLProMedica Health SystemCalcium [Mass/Vol]8.6 mg/dL8.5 - 10.5 mg/dLProMedica Health System Chloride [Moles/Vol]100 mmol/L98 - 109 mmol/LProMedica Health SystemCO2 [Moles/Vol]25 mmol/L22 - 32 mmol/[facility]andica Health SystemCreatinine [Mass/Vol] 0.42 mg/dL0.40 - 1.00 mg/dLSt. Anthony's Hospitalca Health SystemeGFR (CKD-EPI)non-race dependent- PINFPCrystal Clinic Orthopedic Center SystemGlucose [Mass/Vol]94 mg/dL65 - 99 mg/dL [facility] Hospitaledica Health SystemInterpretation and review of laboratory resultsAbnormal [facility] SystemPotassium [Moles/Vol]3.5 mmol/L3.5 - 5.0 mmol/LProMedica Health SystemProtein [Mass/Vol]6 g/dL6.0 - 8.0 g/dLProMedica Health SystemSodium [Moles/Vol]133 mmol/YXtu981 - 146 mmol/LProMedica Health SystemUrea nitrogen [Mass/Vol]6 mg/dL5 - 27 mg/dLProMedica Health SystemELECTROLYTESon 05-13-2024 Anion gap [Moles/Vol]9 mmol/LNormal5-15[facility] HospitalComment on above:Performed By: #### RAMOS, , THYR #### [facility] ([id number]) [address], [address] [place], [place] [address]Qbqyseoh [Moles/Vol]97 mmol/RYjt68-661JfgZaixnoMercy Health – [facility] Hospital Comment on above:Performed By: #### RAMOS, , THYR #### [facility] ([id number]) [address], [address] [place], [place] [address]BC7 [Moles/Vol]26 mmol/ARzpdek30-77VabZkuswqKing's Daughters Medical Center Ohio Comment on above:Performed By: #### RAMOS, , THYR #### [facility] ([id number]) [address], [address] [place], [place] [address]Xxjsgvjcb [Moles/Vol]3.8 mmol/LNormal3.5-5.0[facility] HospitalComment on above:Performed By: #### RAMOS, , THYR #### [facility] ([id number]) [address], [address] [place], [place] [address]Mpkzsc [Moles/Vol]132 mmol/LPqn710-086DvmYzhznnMercy Health – The Jewish Hospital Comment on above:Performed By: #### RAMOS, , THYR #### [facility] ([id number]) [address], [address] [place], [place] [address]Jhhzcixnjkj panelon 25-96-6914Pjcai gap [Moles/Vol]9 mmol/L5 - 15 mmol/LProMedica Health SystemChloride [Moles/Vol]97 mmol/LLow98 - 109 mmol/L [facility] Health SystemCO2 [Moles/Vol]26 mmol/L22 - 32 mmol/LPrNortheast Missouri Rural Health Networkica Health SystemInterpretation and review of laboratory resultsAbnormalProUniversity Hospitals Port[facility] SystemPotassium [Moles/Vol]3.8 mmol/L3.5 - 5.0 mmol/LProMedmobile city hospital Health System Sodium [Moles/Vol]132 mmol/IDbd374 - 146 mmol/LProMedica Health SystemProUniversity Hospitals Portage Medical Center SystemIonized calciumon 50-81-0802Lnbhwyx.ionized (Bld) [Mass/Vol]4.6 mg/dL4.5 - 5.3 mg/dLOhioHealth Grady Memorial HospitalMAGNESIUMon 76-69-7375Yclrdsjrg [Mass/Vol]2.1 mg/dLNormal1.8-2.6[facility] HospitalComment on above: Performed By: #### RAMOS, 12531-4, THYR #### [facility] ([id number]) [address], [address] [place], [place] [address]Xcnwcbmyqsr 76-66-6962Gdrfkvnkq [Mass/Vol]2.1 mg/dL1.8 - 2.6 mg/dLOhioHealth Grady Memorial HospitalNo Panel Informationon [phone] HealthPHOSPHORUSon 64-23-4895Oxmvlinro [Mass/Vol]4.0 mg/dLNormal2.4-4.9[facility] HospitalComment on above:Performed By: #### RAMOS, 44832-0, THYR #### [facility] ([id number]) [address], [address] [place], [place] [address]Kkgbdosjktfb 68-37-3760Whqkurnoo [Mass/Vol]4 mg/dL2.4 - 4.9 mg/dLOhioHealth Grady Memorial HospitalCBC without diffon 38-58-2397Alujrhgoyfj distribution width (RBC) [Ratio]12.7 %11.5 - 15.0 %[facility] Hematocrit (Bld) [Volume fraction]33.8 %Low35 - 47 %[facility] Hemoglobin (Bld) [Mass/Vol]11.9 g/dL11.7 - 15.5 g/dLAshtabula County Medical Center System Interpretation and review of laboratory resultsAbnormalOhioHealth Grady Memorial Hospital MCH (RBC) [Entitic mass]33.6 pg27 - 34 pgPClermont County HospitalMCHC (RBC) [Mass/Vol]35.2 g/dL32 - 36 g/dLOhioHealth Grady Memorial HospitalMCV (RBC) [Entitic vol]96 fL80 - 100 [facility] CenterPlatelet mean volume (Bld) [Entitic vol]8.6 fL7 - 12 [facility] CenterPlatelets (Bld) [#/Vol]262 10*3/uLOhioHealth Grady Memorial HospitalRBC (Bld) [#/Vol]3.53 10*6/[facility] CenterWBC corrected for nucl RBC Auto (Bld) [#/Vol]7.4[facility] Medical CenterCOMPLETE BLOOD COUNTon [phone] distribution width (RBC) [Ratio]12.7 %Xlihfa30.5-15.0[facility] HospitalComment on above: Performed By: #### RAMOS, , THYR #### [facility] ([id number]) [address], [address] [place], [place] [address]Hkiovaadng (Bld) [Volume fraction]33.8 %Ekq13-17XvrYqombrPremier Health Miami Valley HospitalComment on above:Performed By: #### RAMOS, , THYR #### [facility] ([id number]) [address], [address] [place], [place] [address]Iqwkqvasbn (Bld) [Mass/Vol]11.9 g/cKUnmaem16.7-15.5PAshtabula County Medical Center HospitalComment on above:Performed By: #### RAMOS, , THYR #### [facility] ([id number]) [address], [address] [place], [place] [address]AWE (RBC) [Entitic mass]33.6 lgBkxotg04-37OkxHhljusMercy Health – The Jewish HospitalComment on above:Performed By: #### RAMOS, , THYR #### [facility] ([id number]) [address], [address] [place], [place] [address]XAMZ (RBC) [Mass/Vol]35.2 g/oMGfixbp35-07VuiJjturb Quiñonez HospitalComment on above:Performed By: #### RAMOS, , THYR #### [facility] ([id number]) [address], [address] [place], [place] [address]QCA (RBC) [Entitic vol]96 aEVtaasx91-094MakGnsrnj Quiñonez HospitalComment on above:Performed By: #### RAMOS, , THYR #### [facility] ([id number]) [address], [address] [place], [place] [address]Kjaqfzyy mean volume (Bld) [Entitic vol]8.6 fLNormal7-12 [facility]ñonez HospitalComment on above:Performed By: #### RAMOS, , THYR #### [facility] ([id number]) [address], [address] [place], [place] [address]Cwqziwqkh (Bld) [#/Vol]262 10*3/wKXieuby910-708DprAodspi Qu[facility]ñonez HospitalComment on above:Performed By: #### RAMOS, , THYR #### [facility] ([id number]) [address], [address] [place], [place] [address]DQL COUNT3.53 X10E12/LLow3.80-5.20[facility] Comment on above:Performed By: #### RAMOS, , THYR #### [facility] ([id number]) [address], [address] [place], [place] [address]COK (Bld) [#/Vol]7.4 10*3/uLNormal4.0-11.0[facility]ñonez HospitalComment on above:Performed By: #### RAMOS, , THYR #### [facility] ([id number]) [address], [address] [place], [place] [address]MAMJLCCPWHWBM METABOLIC PANELon 74-46-7673Uvxrcox [Mass/Vol]3.2 g/dLNormal3.2-5.3[facility]ñonez HospitalComment on above:Performed By: #### RMAOS, , THYR #### [facility] ([id number]) [address], [address] [place], [place] [address]MEU [Catalytic activity/Vol]87 U/UDabxuz86-825JfqFqmaqc [facility]z HospitalComment on above:Performed By: #### RAMOS, , THYR #### [facility] ([id number]) [address], [address] [place], [place] [address]IJM [Catalytic activity/Vol]17 U/LNormal0-31[facility] HospitalComment on above:Performed By: #### RAMOS, , THYR #### [facility] ([id number]) [address], [address] [place], [place] [address]Gtuca gap [Moles/Vol]8 mmol/LNormal5-15[facility] Comment on above:Performed By: #### RAMOS, , THYR #### [facility] ([id number]) [address], [address] [place], [place] [address]WLP [Catalytic activity/Vol]22 U/LNormal0-41[facility] HospitalComment on above:Performed By: #### RAMOS, , THYR #### [facility] ([id number]) [address], [address] [place], [place] [address]Xehwswbxq [Mass/Vol]0.6 mg/dLNormal0.3-1.2[facility]onez HospitalComment on above:Performed By: #### RAMOS, , THYR #### [facility] ([id number]) [address], [address] [place], [place] [address]Ilcylme [Mass/Vol]8.4 mg/dLLow8.5-10.5PKing's Daughters Medical [facility] [place] Comment on above:Performed By: #### RAMOS, , THYR #### [facility] ([id number]) [address], [address] [place], [place] [address]Vchksnco [Moles/Vol]98 mmol/PPwpfnm23-143DsgXfuxli [place] HospitalComment on above:Performed By: #### RAMOS, , THYR #### [facility] ([id number]) [address], [address] [place], [place] [address]WQ4 [Moles/Vol]24 mmol/ZAgigin27-67PraWdqztoKing's Daughters Medical Center [place] Comment on above:Performed By: #### RAMOS, , THYR #### [facility] ([id number]) [address], [address] [place], [place] [address]Gdkfdxauzg [Mass/Vol]0.46 mg/dLNormal0.40-1.00ProPremier Health Miami Valley HospitalComment on above:Result Comment: METHOD TRACEABLE TO IDMS STANDARD Performed By: #### RAMOS, , THYR #### [facility] ([id number]) [address], [address] [place], [place] [address]oKKT (CKD-EPI) NON-RACE DEPENDENT>90Normal>59ProPremier Health Miami Valley HospitalComment on above:Result Comment: Reported eGFR is based on the CKD-EPI 2020 equation that does not use a race coefficient.Performed By: #### RAMOS, , THYR #### [facility] ([id number]) [address], [address] [place], [place] [address]Oliltiw [Mass/Vol]98 mg/cJQkyoep58-01MjsIdtqkxMercy Health [facility] Comment on above:Performed By: #### RAMOS, , THYR #### [facility] ([id number]) [address], [address] [place], [place] [address]Eezhkgxpn [Moles/Vol]4.0 mmol/LNormal3.5-5.0ProPremier Health Miami Valley HospitalComment on above:Performed By: #### RAMOS, , THYR #### [facility] ([id number]) [address], [address] [place], [place] [address]Hsitbwy [Mass/Vol]6.0 g/dLNormal6.0-8.0[facility] Comment on above:Performed By: #### RAMOS, , THYR #### [facility] ([id number]) [address], [address] [place], [place] [address]Jzscpn [Moles/Vol]130 mmol/FWjc888-201RqnZpwgxiPremier Health Miami Valley Hospital Comment on above:Performed By: #### RAMOS, , THYR #### [facility] ([id number]) [address], [address] [place], [place] [address]Rlol nitrogen [Mass/Vol]6 mg/dLNormal5-27ProPremier Health Miami Valley HospitalComment on above:Performed By: #### RAMOS, , THYR #### [facility] ([id number]) [address], [address] [place], [place] [address]Ysdhuhl.ionized (Bld) [Mass/Vol]on 13-04-6838PuxQvsark Health SystemIONIZED CALCIUM4.5 mg/dLNormal4.5-5.3ProMedCrystal Clinic Orthopedic CenterComment on above:Performed By: #### RAMOS, , THYR #### [facility] ([id number]) [address], [address] [place], [place] [address]Rotclmovsyfxb metabolic panelon 68-35-4951Xsdohqx [Mass/Vol]3.2 g/dL3.2 - 5.3 g/dLProMedica Health SystemALP [Catalytic activity/Vol]87 U/L39 - 130 U/LProMedica Health SystemALT No additional P-5'-P [Catalytic activity/Vol] 17 U/L0 - 31 U/LProMedica Health SystemAnion gap [Moles/Vol]8 mmol/L5 - 15 mmol/LProMedica Health SystemAST [Catalytic activity/Vol]22 U/L0 - 41 U/L [facility] SystemBilirubin [Mass/Vol]0.6 mg/dL0.3 - 1.2 mg/dLProMedica Health SystemCalcium [Mass/Vol]8.4 mg/dLLow8.5 - 10.5 mg/dLProMedica Health SystemChloride [Moles/Vol]98 mmol/L98 - 109 mmol/LProMedica Health SystemCO2 [Moles/Vol]24 mmol/L22 - 32 mmol/LProMedica Health SystemCreatinine [Mass/Vol] 0.46 mg/dL0.40 - 1.00 mg/dLAshtabula County Medical Center SystemeGFR (CKD-EPI)non-race dependent- PINTriHealth Bethesda North Hospital SystemGlucose [Mass/Vol]98 mg/dL65 - 99 mg/dL [facility] SystemInterpretation and review of laboratory resultsAbnormal [facility] SystemPotassium [Moles/Vol]4 mmol/L3.5 - 5.0 mmol/LProMedica Health SystemProtein [Mass/Vol]6 g/dL6.0 - 8.0 g/dLProShelby Baptist Medical Center Health SystemSodium [Moles/Vol]130 mmol/PDfq079 - 146 mmol/LProMedica Health SystemUrea nitrogen [Mass/Vol]6 mg/dL5 - 27 mg/dLAshtabula County Medical Center SystemELECTROLYTESon 05-12-2024 Anion gap [Moles/Vol]9 mmol/LNormal5-15ProPremier Health Miami Valley HospitalComment on above:Performed By: #### CMP, 14054-4, THYR #### [facility] ([id number]) [address], [address] [place], [place] [address]Aqzgjqiu [Moles/Vol]99 mmol/BZlfnsg48-940UukAnwxze [facility]ñonez HospitalComment on above:Performed By: #### CMP, , THYR #### [facility] ([id number]) [address], [address] [place], [place] [address]UM5 [Moles/Vol]24 mmol/RUdvduw73-81XnyVuxjig [facility] Comment on above:Performed By: #### CMP, , THYR #### [facility] ([id number]) [address], [address] [place], [place] [address]Eadgmdaqw [Moles/Vol]4.4 mmol/LNormal3.5-5.0[facility] HospitalComment on above:Performed By: #### RAMOS, , THYR #### [facility] ([id number]) [address], [address] [place], [place] [address]Xbmqgn [Moles/Vol]132 mmol/PIpk978-548PpwRpquqs [facility] Comment on above:Performed By: #### RAMOS, , THYR #### [facility] ([id number]) [address], [address] [place], [place] [address]Ucsku gap [Moles/Vol]8 mmol/LNormal5-15[facility] Comment on above:Performed By: #### RAMOS, , THYR #### [facility] ([id number]) [address], [address] [place], [place] [address]Iifmmylp [Moles/Vol]98 mmol/TXochvh52-518NuvOneuqe [facility]ñonez HospitalComment on above:Performed By: #### CMP, , THYR #### [facility] ([id number]) [address], [address] [place], [place] [address]RJ7 [Moles/Vol]25 mmol/BIvmzuh10-93DyyLtdefb [facility] Comment on above:Performed By: #### CMP, , THYR #### [facility] ([id number]) [address], [address] [place], [place] [address]Jdewnuift [Moles/Vol]4.0 mmol/LNormal3.5-5.0[facility] HospitalComment on above:Performed By: #### CMP, 50138-0, THYR #### [facility] ([id number]) [address], [address] [place], [place] [address]Udrefi [Moles/Vol]131 mmol/BCpr143-052JkvOwkhjlMercy Health – [facility] Hospital Comment on above:Performed By: #### RAMOS, 10789-8, THYR #### [facility] ([id number]) [address], [address] [place], [place] [address]Fsfbejydlyo panelon 61-71-6532Mzuja gap [Moles/Vol]9 mmol/L5 - 15 mmol/LProMedica Health SystemChloride [Moles/Vol]99 mmol/L98 - 109 mmol/L [facility] SystemCO2 [Moles/Vol]24 mmol/L22 - 32 mmol/LProMedica Health SystemInterpretation and review of laboratory resultsAbnormalProMedica Health SystemPotassium [Moles/Vol]4.4 mmol/L3.5 - 5.0 mmol/LProMedica Health System Sodium [Moles/Vol]132 mmol/AIcn103 - 146 mmol/LProMedica Health SystemProMedica Health SystemAnion gap [Moles/Vol]8 mmol/L5 - 15 mmol/LProMedica Health System Chloride [Moles/Vol]98 mmol/L98 - 109 mmol/LProMedica Health SystemCO2 [Moles/Vol]25 mmol/L22 - 32 mmol/LProMedica Health SystemInterpretation and review of laboratory resultsAbnormalProMedica Health SystemPotassium [Moles/Vol] 4 mmol/L3.5 - 5.0 mmol/LProMedica Health SystemSodium [Moles/Vol]131 mmol/LLow 134 - 146 mmol/LProMedica Health SystemProWadsworth-Rittman Hospitalca Health SystemIonized calciumon 67-87-8747Puvlxmk.ionized (Bld) [Mass/Vol]4.5 mg/dL4.5 - 5.3 mg/dLAshtabula County Medical Center SystemMAGNESIUMon 28-93-5111Nfpuefvxi [Mass/Vol]2.9 mg/dLHigh1.8-2.6 [facility] HospitalComment on above:Performed By: #### RAMOS, 08284-2, THYR #### [facility] ([id number]) [address], [address] [place], [place] [address]Dzjpwqydz [Mass/Vol]1.8 mg/dLNormal1.8-2.6[facility] HospitalComment on above:Performed By: #### RAMOS, 63280-2, THYR #### [facility] ([id number]) [address], [address] [place], [place] [address]Fibfjsgwzjy 54-58-4959Gtnwlncld [Mass/Vol]2.9 mg/dLHigh1.8 - 2.6 mg/dLAshtabula County Medical Center SystemMagnesium [Mass/Vol]1.8 mg/dL1.8 - 2.6 mg/dL [facility] HospitalMagnesium [Mass/Vol]on 62-97-5477Iezlyajplgeytq and review of laboratory resultsAbnormalProUniversity [facility] SystemProShelby [facility] Health SystemNo Panel Informationon 92-19-5003LgnZaeiiw Health SystemPHOSPHORUSon 51-53-3389Gvhgadfdz [Mass/Vol]3.8 mg/dLNormal2.4-4.9[facility] Comment on above:Performed By: #### RAMOS, 35646-1, THYR #### [facility] ([id number]) [address], [address] [place], [place] [address]Tsqcuifvkzvl 00-61-5841Zfjbjaqmb [Mass/Vol]3.8 mg/dL2.4 - 4.9 mg/dLOhioHealth Grady Memorial HospitalCBC without diffon 14-46-4532Bhyvmdkifss distribution width (RBC) [Ratio]12.8 %11.5 - 15.0 %[facility] System Hematocrit (Bld) [Volume fraction]31.3 %Low35 - 47 %[facility] System Hemoglobin (Bld) [Mass/Vol]11 g/dLLow11.7 - 15.5 g/dLOhioHealth Grady Memorial Hospital Interpretation and review of laboratory resultsAbnormalOhioHealth Grady Memorial Hospital MCH (RBC) [Entitic mass]33.1 pg27 - 34 pgPClermont County HospitalMCHC (RBC) [Mass/Vol]35.3 g/dL32 - 36 g/dLOhioHealth Grady Memorial HospitalMCV (RBC) [Entitic vol]94 fL80 - 100 [facility] Medical CenterPlatelet mean volume (Bld) [Entitic vol]8.7 fL7 - 12 [facility] Medical CenterPlatelets (Bld) [#/Vol]250 10*3/uLOhioHealth Grady Memorial HospitalRBC (Bld) [#/Vol]3.34 10*6/[facility] CenterWBC corrected for nucl RBC Auto (Bld) [#/Vol]8.5PSouthwood Psychiatric HospitalCOMPLETE BLOOD COUNTon 84-53-7660Dmohoxszfao distribution width (RBC) [Ratio]12.8 %Iulniy41.5-15.0[facility] HospitalComment on above: Performed By: #### 22979-3 #### [facility] ([id number]) [address], [address] [place], [place] [address]Gqiarojkfk (Bld) [Volume fraction]31.3 %Upf83-75XqpQqwqeePremier Health Miami Valley HospitalComment on above:Performed By: #### 21505-1 #### [facility] ([id number]) [address], [address] [place], [place] [address]Rxihmvpwss (Bld) [Mass/Vol]11.0 g/dLLow11.7-15.5PKing's Daughters Medical Center OhioComment on above:Performed By: #### 62101-4 #### [facility] ([id number]) [address], [address] [place], [place] [address]PUS (RBC) [Entitic mass]33.1 fuCemkzo98-71TdvDoedab [place] HospitalComment on above:Performed By: #### 01075-7 #### [facility] ([id number]) [address], [address] [place] [address]PQKW (RBC) [Mass/Vol]35.3 g/vPIrayuw75-88OxqXlrvae [facility] HospitalComment on above:Performed By: #### 51990-9 #### [facility] ([id number]) [address], [address] [place], [place] [address]EXW (RBC) [Entitic vol]94 xKXkcbyu73-421HbhOnpwzd [facility] HospitalComment on above:Performed By: #### 15183-6 #### [facility] ([id number]) [address], [address] [place] [address]Fsqwmqxe mean volume (Bld) [Entitic vol]8.7 fLNormal7-12 [facility] HospitalComment on above:Performed By: #### 57024-0 #### [facility] ([id number]) [address], [address] [place], [place] [address]Pyxqhdbus (Bld) [#/Vol]250 10*3/cIBuipxf722-798YyhZmjwsn [facility] HospitalComment on above:Performed By: #### 30667-8 #### [facility] ([id number]) [address], [address] [place], [place] [address]ITD COUNT3.34 X10E12/LLow3.80-5.20[facility] Comment on above:Performed By: #### 99527-7 #### [facility] ([id number]) [address], [address] [place], [place] [address]JKO (Bld) [#/Vol]8.5 10*3/uLNormal4.0-11.0[facility] HospitalComment on above:Performed By: #### 06678-1 #### [facility] ([id number]) [address], [address] [place], [place] [address]DQVVUKCMYIVKW METABOLIC PANELon 65-19-4679Acgfkdq [Mass/Vol]3.0 g/dLLow3.2-5.3[facility] HospitalComment on above:Performed By: #### RAMOS, , THYR #### [facility] ([id number]) [address], [address] [place], [place] [address]RMJ [Catalytic activity/Vol]96 U/HZhciik15-671ZpaYjawzj [facility] HospitalComment on above:Performed By: #### RAMOS, , THYR #### [facility] ([id number]) [address], [address] [place], [place] [address]FFP [Catalytic activity/Vol]17 U/LNormal0-31ProMedmobile city hospital [place] HospitalComment on above:Performed By: #### RAMOS, , THYR #### [facility] ([id number]) [address], [address] [place], [place] [address]Tddwv gap [Moles/Vol]8 mmol/LNormal5-15[facility] [facility] Comment on above:Performed By: #### RAMOS, , THYR #### [facility] ([id number]) [address], [address] [place], [place] [address]LUL [Catalytic activity/Vol]24 U/LNormal0-41[facility] HospitalComment on above:Performed By: #### RAMOS, , THYR #### [facility] ([id number]) [address], [address] [place], [place] [address]Jgovyildp [Mass/Vol]0.9 mg/dLNormal0.3-1.2[facility] HospitalComment on above:Performed By: #### RAMOS, , THYR #### [facility] ([id number]) [address], [address] [place], [place] [address]Brntkwg [Mass/Vol]7.8 mg/dLLow8.5-10.5PKing's Daughters Medical Center [place] Comment on above:Performed By: #### RAMOS, , THYR #### [facility] ([id number]) [address], [address] [place], [place] [address]Xlprreya [Moles/Vol]96 mmol/DYsc62-560GkwEhtkbnMercy Health – The Jewish Hospital Comment on above:Performed By: #### RAMOS, , THYR #### [facility] ([id number]) [address], [address] [place], [place] [address]UF0 [Moles/Vol]24 mmol/ZFebbtd35-36BrrLkpjnlKing's Daughters Medical Center [place] Comment on above:Performed By: #### RAMOS, , THYR #### [facility] ([id number]) [address], [address] [place], [place] [address]Ivbzyvmbur [Mass/Vol]0.38 mg/dLLow0.40-1.00[facility] Jewish HospitalComment on above:Result Comment: METHOD TRACEABLE TO IDMS STANDARD Performed By: #### RAMOS, , THYR #### [facility] ([id number]) [address], [address] [place], [place] [address]eYRN (CKD-EPI) NON-RACE DEPENDENT>90Normal>59ProPremier Health Miami Valley HospitalComment on above:Result Comment: Reported eGFR is based on the CKD-EPI 2021 equation that does not use a race coefficient.Performed By: #### RAMOS, , THYR #### [facility] ([id number]) [address], [address] [place], [place] [address]Vpnstyf [Mass/Vol]87 mg/cYUoffii68-15KwaVxzlgeMercy Health – The Jewish Hospital Comment on above:Performed By: #### RAMOS, , THYR #### [facility] ([id number]) [address], [address] [place], [place] [address]Pgjucfyul [Moles/Vol]3.9 mmol/LNormal3.5-5.0[facility] HospitalComment on above:Performed By: #### RAMOS, 24348-0, THYR #### [facility] ([id number]) [address], [address] [place], [place] [address]Zjlkwvd [Mass/Vol]5.5 g/dLLow6.0-8.0[facility] Comment on above:Performed By: #### RAMOS, , THYR #### [facility] ([id number]) [address], [address] [place], [place] [address]Yegpam [Moles/Vol]128 mmol/WNhm602-987DriAlubetMercy Health – The Jewish Hospital Comment on above:Performed By: #### RAMOS, , THYR #### [facility] ([id number]) [address], [address] [place], [place] [address]Yrts nitrogen [Mass/Vol]7 mg/dLNormal5-27ProPremier Health Miami Valley HospitalComment on above:Performed By: #### RAMOS, , THYR #### [facility] ([id number]) [address], [address] [place], [place] [address]Qaskenn.ionized (Bld) [Mass/Vol]on 06-45-9217Nmsstpvvmojaff and review of laboratory resultsAbnormalOhioHealth Grady Memorial HospitalProWilson HealthIONIZED CALCIUM4.4 mg/dLLow4.5-5.3PKing's Daughters Medical Center OhioComment on above:Performed By: #### 89839-7 #### [facility] ([id number]) [address], [address] [place], [place] [address]Kbmftuddlvsdk metabolic panelon 77-60-5510Qtxmzbs [Mass/Vol]3 g/dLLow3.2 - 5.3 g/dLProUniversity Hospitals [facility] SystemALP [Catalytic activity/Vol]96 U/L39 - 130 U/LProMedica Health SystemALT No additional P-5'-P [Catalytic activity/Vol]17 U/L0 - 31 U/LPrNortheast Missouri Rural Health Networkica Health SystemAnion gap [Moles/Vol]8 mmol/L5 - 15 mmol/LProMedica Health SystemAST [Catalytic activity/Vol]24 U/L0 - 41 U/LProMedica Health SystemBilirubin [Mass/Vol]0.9 mg/dL0.3 - 1.2 mg/dL ProMNorth Shore Health SystemCalcium [Mass/Vol]7.8 mg/dLLow8.5 - 10.5 mg/dLAshtabula County Medical Center SystemChloride [Moles/Vol]96 mmol/LLow98 - 109 mmol/[facility] Health SystemCO2 [Moles/Vol]24 mmol/L22 - 32 mmol/[facility] SystemCreatinine [Mass/Vol]0.38 mg/dLLow0.40 - 1.00 mg/dLOhioHealth Grady Memorial HospitaleGFR (CKD-EPI)non-race dependent- PINTriHealth Bethesda North Hospital SystemGlucose [Mass/Vol]87 mg/dL65 - 99 mg/dLAshtabula County Medical Center SystemInterpretation and review of laboratory resultsAbnormalAshtabula County Medical Center SystemPotassium [Moles/Vol]3.9 mmol/L3.5 - 5.0 mmol/[facility] Health SystemProtein [Mass/Vol]5.5 g/dLLow6.0 - 8.0 g/dL [facility] SystemSodium [Moles/Vol]128 mmol/UCkf938 - 146 mmol/LPrColorado Mental Health Institute [facility] Health SystemUrea nitrogen [Mass/Vol]7 mg/dL5 - 27 mg/dLAshtabula County Medical Center System ELECTROLYTESon 28-44-1855Cbvpy gap [Moles/Vol]7 mmol/LNormal5-15[facility] HospitalComment on above:Performed By: #### RAMOS, 30275-1, THYR #### [facility] ([id number]) [address], [address] [place], [place] [address]Iqfktgvb [Moles/Vol]96 mmol/NMjk21-709TsyAbnvcvMercy Health – The Jewish Hospital Comment on above:Performed By: #### RAMOS, , THYR #### [facility] ([id number]) [address], [address] [place], [place] [address]UB5 [Moles/Vol]24 mmol/ROgngdo37-97BcfUqtsew [facility] Comment on above:Performed By: #### RAMOS, , THYR #### [facility] ([id number]) [address], [address] [place], [place] [address]Slyfrlszp [Moles/Vol]4.1 mmol/LNormal3.5-5.0Pro[facility] HospitalComment on above:Performed By: #### RAMOS, , THYR #### [facility] ([id number]) [address], [address] [place], [place] [address]Lswvid [Moles/Vol]127 mmol/TBqc425-134OlkQiiwrb [facility] Comment on above:Performed By: #### RAMOS, , THYR #### [facility] ([id number]) [address], [address] [place], [place] [address]Auxdv gap [Moles/Vol]10 mmol/LNormal5-15[facility] HospitalComment on above:Performed By: #### RAMOS, , THYR #### [facility] ([id number]) [address], [address] [place], [place] [address]Nkliwuca [Moles/Vol]95 mmol/EOqq69-633BbkJqprmc [facility] Comment on above:Performed By: #### RAMOS, , THYR #### [facility] ([id number]) [address], [address] [place], [place] [address]RY3 [Moles/Vol]23 mmol/GFaftol14-03EwpLffpin [facility] Comment on above:Performed By: #### RAMOS, , THYR #### [facility] ([id number]) [address], [address] [place], [place] [address]Vcqgdgrza [Moles/Vol]4.2 mmol/LNormal3.5-5.0[facility] Jewish HospitalComment on above:Performed By: #### RAMOS, 80847-5, THYR #### [facility] ([id number]) [address], [address] [place], [place] [address]Lqxzwe [Moles/Vol]128 mmol/VYby887-233GstUfmjabMercy Health – The Jewish Hospital Comment on above:Performed By: #### RAMOS, 87245-5, THYR #### [facility] ([id number]) [address], [address] [place], [place] [address]Ucxnwatnnrd panelon [phone] gap [Moles/Vol]7 mmol/L5 - 15 mmol/LProMedica Health SystemChloride [Moles/Vol]96 mmol/LLow98 - 109 mmol/L [facility] SystemCO2 [Moles/Vol]24 mmol/L22 - 32 mmol/LProMedica Health SystemInterpretation and review of laboratory resultsAbnormalWhite River Junction Va Medical CenterMedica Health SystemPotassium [Moles/Vol]4.1 mmol/L3.5 - 5.0 mmol/LProMedica Health System Sodium [Moles/Vol]127 mmol/LLjt235 - 146 mmol/LProMedica Health SystemProMedica Health SystemAnion gap [Moles/Vol]10 mmol/L5 - 15 mmol/LProMedica Health System Chloride [Moles/Vol]95 mmol/LLow98 - 109 mmol/LProMedica Health SystemCO2 [Moles/Vol]23 mmol/L22 - 32 mmol/LProMedica Health SystemInterpretation and review of laboratory resultsAbnormalSt. Anthony's Hospitalca Health SystemPotassium [Moles/Vol] 4.2 mmol/L3.5 - 5.0 mmol/LProMedica Health SystemSodium [Moles/Vol]128 mmol/LLow 134 - 146 mmol/LProMedica Health SystemProShelby Baptist [facility] Health SystemIonized calciumon [phone].ionized (Bld) [Mass/Vol]4.4 mg/dLLow4.5 - 5.3 mg/dLAshtabula County Medical Center SystemMAGNESIUMon [phone] [Mass/Vol]1.8 mg/dLNormal1.8-2.6 [facility] HospitalComment on above:Performed By: #### RAMOS, 72050-0, THYR #### [facility] ([id number]) [address], [address] [place], [place] [address]Ytmggurofdl [phone] [Mass/Vol]1.8 mg/dL1.8 - 2.6 mg/dLOhioHealth Grady Memorial HospitalNo Panel Informationon [phone] Grady Memorial HospitalPHOSPHORUSon 88-52-1585Dbknomrjs [Mass/Vol]3.7 mg/dLNormal2.4-4.9[facility] HospitalComment on above:Performed By: #### RAMOS, 93568-8, THYR #### [facility] ([id number]) [address], [address] [place], [place] [address]Dfcjszstporp [phone] [Mass/Vol]3.7 mg/dL2.4 - 4.9 mg/dLOhioHealth Grady Memorial HospitalCBC without diffon [phone] distribution width (RBC) [Ratio]12.8 %11.5 - 15.0 %[facility] Hematocrit (Bld) [Volume fraction]28.1 %Low35 - 47 %[facility] Hemoglobin (Bld) [Mass/Vol]10.1 g/dLLow11.7 - 15.5 g/dLOhioHealth Grady Memorial Hospital Interpretation and review of laboratory resultsAbnormalOhioHealth Grady Memorial Hospital MCH (RBC) [Entitic mass]33.7 pg27 - 34 [facility] HospitalMCHC (RBC) [Mass/Vol]35.8 g/dL32 - 36 g/dLOhioHealth Grady Memorial HospitalMCV (RBC) [Entitic vol]94 fL80 - 100 [facility] CenterPlatelet mean volume (Bld) [Entitic vol]8.8 fL7 - 12 [facility] CenterPlatelets (Bld) [#/Vol]170 10*3/uLOhioHealth Grady Memorial HospitalRBC (Bld) [#/Vol]2.98 10*6/uLLowOhioHealth Grady Memorial HospitalWBC corrected for nucl RBC Auto (Bld) [#/Vol]6.9[facility] Medical CenterCOMPLETE BLOOD COUNTon 40-51-1557Vmfonattpsp distribution width (RBC) [Ratio]12.8 %Dawzyd09.5-15.0[facility] HospitalComment on above: Performed By: #### ICODE #### [facility] ([id number]) [address] [place], [place] [address]Kgusljrvhz (Bld) [Volume fraction]28.1 %Ept94-33ZhlDgwbex Toledo HospitalComment on above:Performed By: #### ICODE #### [facility] ([id number]) [address] [place], [place] [address]Iyltzngcps (Bld) [Mass/Vol]10.1 g/dLLow11.7-15.5ProMedica Palmyra HospitalComment on above:Performed By: #### ICODE #### [facility] ([id number]) [address] [place], [place] [address]KSA (RBC) [Entitic mass]33.7 joTpeguk24-59EouQeogub [place] HospitalComment on above:Performed By: #### ICODE #### [facility] ([id number]) [address] [place], [place] [address]ELUP (RBC) [Mass/Vol]35.8 g/zDXpsugm82-09WtnIvgnrq [place] HospitalComment on above:Performed By: #### ICODE #### [facility] ([id number]) [address] [place], [place] [address]VHU (RBC) [Entitic vol]94 zSGwospx82-884AcbTymdck [place] HospitalComment on above:Performed By: #### ICODE #### [facility] ([id number]) [address] [place], [place] [address]Prsmfhft mean volume (Bld) [Entitic vol]8.8 fLNormal7-12 [facility] HospitalComment on above:Performed By: #### ICODE #### [facility] ([id number]) [address] [place], [place] [address]Auvoasres (Bld) [#/Vol]170 10*3/eDKkdyyb411-181RgjVolcqn [place] HospitalComment on above:Performed By: #### ICODE #### [facility] ([id number]) [address] [place], [place] [address]IAO COUNT2.98 X10E12/LLow3.80-5.20Pro[facility] Comment on above:Performed By: #### ICODE #### [facility] ([id number]) [address] [place], [place] [address]ZHT (Bld) [#/Vol]6.9 10*3/uLNormal4.0-11.0ProWadsworth-Rittman Hospitalca [place]ñonez HospitalComment on above:Performed By: #### ICODE #### [facility] ([id number]) [address] [place], [place] [address]TDYAPWBECTLUE METABOLIC PANELon 56-29-3863Jzntwks [Mass/Vol]3.0 g/dLLow3.2-5.3ProMedica Palmyra HospitalComment on above:Performed By: #### ICODE #### [facility] ([id number]) [address] [place], [place] [address]SPL [Catalytic activity/Vol]102 U/FBtjnic37-305RapBwikdu [facility]ñonez HospitalComment on above:Performed By: #### ICODE #### [facility] ([id number]) [address] [place], [place] [address]OYQ [Catalytic activity/Vol]23 U/LNormal0-31ProMedica [facility]z HospitalComment on above:Performed By: #### ICODE #### [facility] ([id number]) [address] [place], [place] [address]Yctrc gap [Moles/Vol]8 mmol/LNormal5-15[facility] Comment on above:Performed By: #### ICODE #### [facility] ([id number]) [address] [place], [place] [address]SGZ [Catalytic activity/Vol]40 U/LNormal0-41ProPremier Health Miami Valley HospitalComment on above:Performed By: #### ICODE #### [facility] ([id number]) [address] [place], [place] [address]Lrqsfdgcr [Mass/Vol]0.8 mg/dLNormal0.3-1.2PKing's Daughters Medical Center OhioComment on above:Performed By: #### ICODE #### [facility] ([id number]) [address] [place], [place] [address]Nxzfgal [Mass/Vol]8.0 mg/dLLow8.5-10.5PKing's Daughters Medical Center [place] Comment on above:Performed By: #### ICODE #### [facility] ([id number]) [address] [place], [place] [address]Lbxcshpc [Moles/Vol]96 mmol/QCkt89-820YeqBmukceMercy Health – The [facility] Hospital Comment on above:Performed By: #### ICODE #### [facility] ([id number]) [address] [place], [place] [address]EJ2 [Moles/Vol]26 mmol/QNjdbza47-26CksLhtqsyKing's Daughters Medical Center [place] Comment on above:Performed By: #### ICODE #### [facility] ([id number]) [address] [place], [place] [address]Wegfzakulv [Mass/Vol]0.42 mg/dLNormal0.40-1.00ProPremier Health Miami Valley HospitalComment on above:Result Comment: METHOD TRACEABLE TO IDMS STANDARD Performed By: #### ICODE #### [facility] ([id number]) [address] [place], [place] [address]nNWR (CKD-EPI) NON-RACE DEPENDENT>90Normal>59ProPremier Health Miami Valley HospitalComment on above:Result Comment: Reported eGFR is based on the CKD-EPI 2020 equation that does not use a race coefficient.Performed By: #### ICODE #### [facility] ([id number]) [address] [place], [place] [address]Azumsbu [Mass/Vol]91 mg/lNEsvthi30-67IqeEsebxeMercy Health – [facility] Hospital Comment on above:Performed By: #### ICODE #### [facility] ([id number]) [address] [place], [place] [address]Qmryqfmvm [Moles/Vol]4.0 mmol/LNormal3.5-5.0[facility] HospitalComment on above:Performed By: #### ICODE #### [facility] ([id number]) [address] [place], [place] [address]Mvpydzm [Mass/Vol]5.3 g/dLLow6.0-8.0[facility] Comment on above:Performed By: #### ICODE #### [facility] ([id number]) [address] [place], [place] [address]Gompfs [Moles/Vol]130 mmol/LAyo715-631FqmPhpzewMercy Health – The [facility] Hospital Comment on above:Performed By: #### ICODE #### [facility] ([id number]) [address] [place], [place] [address]Fxix nitrogen [Mass/Vol]8 mg/dLNormal5-27ProPremier Health Miami Valley HospitalComment on above:Performed By: #### ICODE #### [facility] ([id number]) [address] [place], [place] [address]Lgozstc.ionized (Bld) [Mass/Vol]on 98-66-7193EmzNgkxgmOhioHealth Grady Memorial HospitalIONIZED CALCIUM4.6 mg/dLNormal4.5-5.3PKing's Daughters Medical Center OhioComment on above:Performed By: #### ICODE #### [facility] ([id number]) [address] [place], [place] [address]GdjFlhvzgOhioHealth Grady Memorial HospitalIONIZED CALCIUM4.5 mg/dLNormal4.5-5.3 [facility] HospitalComment on above:Performed By: #### ICODE #### [facility] ([id number]) [address] [place], [place] [address]Ezkpnon Invasiveon 31-32-9370OLRHHblFxhpxg Health SystemCardiac echo study Procedureon 14-18-1346NZKYRJAMlxbwkmfl Study observation (narrative) [facility] HospitalCardiac echo study ProcedureOrdered By: Shant Doss on 56-39-4066IikRfskwbOhioHealth Grady Memorial Hospital Work Phone: Cobalamin (Vitamin B12) [Mass/Vol]on 05-10-2024 [facility] HospitalComprehensive metabolic panelon 28-73-8246Qhinvls [Mass/Vol]3 g/dLLow3.2 - 5.3 g/dLProShelby [facility] Health SystemALP [Catalytic activity/Vol]102 U/L39 - 130 U/[facility] Health SystemALT No additional P-5'-P [Catalytic activity/Vol]23 U/L0 - 31 U/[facility]and[facility] Health SystemAnion gap [Moles/Vol]8 mmol/L5 - 15 mmol/[facility] Health SystemAST [Catalytic activity/Vol]40 U/L0 - 41 U/[facility] Health SystemBilirubin [Mass/Vol]0.8 mg/dL0.3 - 1.2 mg/dLAshtabula County Medical Center SystemCalcium [Mass/Vol]8 mg/dLLow8.5 - 10.5 mg/dLAshtabula County Medical Center SystemChloride [Moles/Vol]96 mmol/LLow98 - 109 mmol/L [facility] HospitalCO2 [Moles/Vol]26 mmol/L22 - 32 mmol/[facility] SystemCreatinine [Mass/Vol]0.42 mg/dL0.40 - 1.00 mg/dLOhioHealth Grady Memorial Hospital eGFR (CKD-EPI)non-race dependent- PINFPClermont County HospitalGlucose [Mass/Vol] 91 mg/dL65 - 99 mg/dLOhioHealth Grady Memorial HospitalInterpretation and review of laboratory resultsAbnormalProWilson HealthPotassium [Moles/Vol]4 mmol/L 3.5 - 5.0 mmol/LProMedica [facility] SystemProtein [Mass/Vol]5.3 g/dLLow6.0 - 8.0 g/dLSampson Regional Medical Centerodium [Moles/Vol]130 mmol/LVar123 - 146 mmol/L [facility] HospitalUrea nitrogen [Mass/Vol]8 mg/dL5 - 27 mg/dLOhioHealth Grady Memorial HospitalEEGon 95-58-5591SLWQCFNQ TRANSCRIBED RESULTSEEGOrdered By: Kat Marquez on 74-67-6223TfkAftjdnOhioHealth Grady Memorial Hospital Work Phone: ELECTROLYTESon 37-16-9060Alpcn gap [Moles/Vol]9 mmol/L Normal5-15ProPremier Health Miami Valley HospitalComment on above:Performed By: #### 13295-7 #### [facility] ([id number]) [address], [address] [place], [place] [address]Yvjfdldu [Moles/Vol]95 mmol/BLde53-770EkhQykzbdMercy Health – [facility] Hospital Comment on above:Performed By: #### 96019-1 #### [facility] ([id number]) [address], [address] [place], [place] [address]ZB2 [Moles/Vol]24 mmol/OOvmslf13-85TjzVudrnnKing's Daughters Medical Center [place] Comment on above:Performed By: #### 42602-9 #### [facility] ([id number]) [address], [address] [place], [place] [address]Siwgztryq [Moles/Vol]4.4 mmol/LNormal3.5-5.0Mer[facility] Jewish HospitalComment on above:Performed By: #### 17560-9 #### [facility] ([id number]) [address], [address] [place], [place] [address]Eescjs [Moles/Vol]128 mmol/YIwc051-796MvbYwuvaw [facility] [facility] Comment on above:Performed By: #### 57234-9 #### [facility] ([id number]) [address], [address] [place], [place] [address]Gsnhn gap [Moles/Vol]6 mmol/LNormal5-15[facility] [place] [facility] Comment on above:Performed By: #### 57979-2 #### [facility] ([id number]) [address], [address] [place], [place] [address]Dzasgerl [Moles/Vol]97 mmol/SFnt57-715NqfGvpljk [place] [facility] Comment on above:Performed By: #### 37496-8 #### [facility] ([id number]) [address], [address] [place], [place] [address]LL9 [Moles/Vol]26 mmol/NZxuwax63-50HewRyjvka [place] [facility] Comment on above:Performed By: #### 68023-3 #### [facility] ([id number]) [address], [address] [place], [place] [address]Juenuorkf [Moles/Vol]3.8 mmol/LNormal3.5-5.0ProMedica [place] HospitalComment on above:Performed By: #### 57947-2 #### [facility] ([id number]) [address], [address] [place], [place] [address]Vgjxws [Moles/Vol]129 mmol/SBej108-776IorIatyem [facility] [facility] Comment on above:Performed By: #### 01884-0 #### [facility] ([id number]) [address], [address] [place], [place] [address]Bjrpo gap [Moles/Vol]7 mmol/LNormal5-15ProWadsworth-Rittman Hospitalca [place] [facility] Comment on above:Performed By: #### ICODE #### [facility] ([id number]) [address] [facility] [place], [place] [address]Tuokelpp [Moles/Vol]97 mmol/HEpe02-067CgpXahobiMercy Health – The Jewish Hospital Comment on above:Performed By: #### ICODE #### [facility] ([id number]) [address] [facility], [place] [address]AL0 [Moles/Vol]26 mmol/OVjdtuy34-01OvuQakabaKing's Daughters Medical Center [place] Comment on above:Performed By: #### ICODE #### [facility] ([id number]) [address] [facility] [place], [place] [address]Dyjfqysjw [Moles/Vol]3.8 mmol/LNormal3.5-5.0[facility] Jewish HospitalComment on above:Performed By: #### ICODE #### [facility] ([id number]) [address] [facility], [place] [address]Mqaczj [Moles/Vol]130 mmol/FTeo219-785LwiIkkdxvPremier Health Miami Valley Hospital Comment on above:Performed By: #### ICODE #### [facility] ([id number]) [address] [place], [place] [address]Sjkdz gap [Moles/Vol]7 mmol/LNormal5-15[facility] Comment on above:Performed By: #### ICODE #### [facility] ([id number]) [address] [facility] [place], [place] [address]Pibxfymw [Moles/Vol]96 mmol/GNfo00-141TnbRuxqjkMercy Health – The Jewish Hospital Comment on above:Performed By: #### ICODE #### [facility] ([id number]) [address] [facility], [place] [address]NV6 [Moles/Vol]28 mmol/NIsdyif49-50UtyDeicxlKing's Daughters Medical Center [place] Comment on above:Performed By: #### ICODE #### [facility] ([id number]) [address] [place], [place] [address]Qhhqsapis [Moles/Vol]4.0 mmol/LNormal3.5-5.0[facility] Jewish HospitalComment on above:Performed By: #### ICODE #### [facility] ([id number]) [address] [place], [place] [address]Jkodmq [Moles/Vol]131 mmol/BEtf329-891PymVodqdeMercy Health – The Jewish Hospital Comment on above:Performed By: #### ICODE #### [facility] ([id number]) [address] [place], [place] [address]Xjyigccesgq panelon 80-07-5158Adion gap [Moles/Vol]9 mmol/L5 - 15 mmol/LProMedica Health SystemChloride [Moles/Vol]95 mmol/LLow98 - 109 mmol/L [facility] SystemCO2 [Moles/Vol]24 mmol/L22 - 32 mmol/LProMedica Health SystemInterpretation and review of laboratory resultsAbnormalProMedica Health SystemPotassium [Moles/Vol]4.4 mmol/L3.5 - 5.0 mmol/LProMedica Health System Sodium [Moles/Vol]128 mmol/FSek701 - 146 mmol/LProMedica Health SystemProMedica Health SystemAnion gap [Moles/Vol]6 mmol/L5 - 15 mmol/LProMedica Health System Chloride [Moles/Vol]97 mmol/LLow98 - 109 mmol/LProMedica Health SystemCO2 [Moles/Vol]26 mmol/L22 - 32 mmol/LProMedica Health SystemInterpretation and review of laboratory resultsAbnormalProMedica Health SystemPotassium [Moles/Vol] 3.8 mmol/L3.5 - 5.0 mmol/LProMedica Health SystemSodium [Moles/Vol]129 mmol/LLow 134 - 146 mmol/LProMedica Health SystemProMedica Health SystemAnion gap [Moles/Vol]7 mmol/L5 - 15 mmol/LProMedica Health SystemChloride [Moles/Vol]97 mmol/LLow98 - 109 mmol/LProMedica Health SystemCO2 [Moles/Vol]26 mmol/L22 - 32 mmol/LProMedica Health SystemInterpretation and review of laboratory results AbnormalProMedica Health SystemPotassium [Moles/Vol]3.8 mmol/L3.5 - 5.0 mmol/L [facility] SystemSodium [Moles/Vol]130 mmol/ITat024 - 146 mmol/LProMedica Health SystemProMedica Health SystemAnion gap [Moles/Vol]7 mmol/L5 - 15 mmol/L [facility] SystemChloride [Moles/Vol]96 mmol/LLow98 - 109 mmol/LProMedica Health SystemCO2 [Moles/Vol]28 mmol/L22 - 32 mmol/LProMedica Health System Interpretation and review of laboratory resultsAbnormalProWadsworth-Rittman Hospitalca Health System Potassium [Moles/Vol]4 mmol/L3.5 - 5.0 mmol/LProMedica Health SystemSodium [Moles/Vol]131 mmol/NReu931 - 146 mmol/LProMedica Health SystemProMedica Health SystemFolateon 75-38-0831Oiqton [Mass/Vol]4.2 ng/mLLow5.8 - PINF ng/mLProWadsworth-Rittman Hospitalca Health SystemFolate [Mass/Vol]4.1 ng/mLLow5.8 - PINF ng/mLMercy Health West Hospital Health SystemFolate [Mass/Vol]on 13-62-0916Yxjwqtlribifgk and review of laboratory resultsAbnormalProWadsworth-Rittman Hospitalca Health SystemProMedica Health SystemFOLIC ACID4.2 ng/mL Low>5.8[facility] HospitalComment on above:Result Comment: NEW REFERENCE RANGEPerformed By: #### 64642-2 #### [facility] ([id number]) [address] [place] [address], [address] [place], [place] [address]Gbauzotfqvrwmh and review of laboratory resultsAbnormKindred Healthcare SystemProWadsworth-Rittman Hospitalca Health SystemFOLIC ACID4.1 ng/mLLow>5.8[facility] HospitalComchelsea hospital on above:Result Comment: NEW REFERENCE RANGEPerformed By: #### 16259-7 #### [facility] ([id number]) [address], [address] [place], [place] [address]Hltajdp calciumon 87-05-3697Ijfdusz.ionized (Bld) [Mass/Vol]4.6 mg/dL4.5 - 5.3 mg/dLProUniversity [facility]als [facility] SystemCalcium.ionized (Bld) [Mass/Vol]4.5 mg/dL4.5 - 5.3 mg/dLProUniversity Hospitals Port[facility] SystemIonized magnesiumon 05-10-2024 Magnesium Ionized ISE (Bld) [Moles/Vol]0.64 mmol/L0.45 - 0.74 mmol/LProMedica [facility] Clinic [facility] Hospital SystemMAGNESIUMon 04-91-0577Rwbstgeqk [Mass/Vol]1.8 mg/dLNormal1.8-2.6 [facility] Jewish HospitalComment on above:Performed By: #### ICODE #### [facility] ([id number]) [address] [place], [place] [address]Ugkfmtixjeo 42-33-0065Whrihhufg [Mass/Vol]1.8 mg/dL1.8 - 2.6 mg/dLAshtabula County Medical Center SystemMagnesium Ionized ISE (Bld) [Moles/Vol]on 05-10-2024 [facility] HospitalMagnesium [Moles/Vol]0.64 mmol/LNormal0.45-0.74[facility] Jewish HospitalComment on above:Result Comment: NEW REFERENCE RANGEPerformed By: #### 16189-8 #### [facility] ([id number]) [address] [address], [address] [place], [place] [address]Nm Panel Informationon 61-24-1797JhsKahgjx Health System PHOSPHORUSon 72-05-5960Yklwhiyus [Mass/Vol]3.1 mg/dLNormal2.4-4.9[facility] Jewish HospitalComment on above:Performed By: #### ICODE #### [facility] ([id number]) [address] [place], [place] [address]Gsftmruohiqg 21-34-9038Dwoxzapbc [Mass/Vol]3.1 mg/dL2.4 - 4.9 mg/dLAshtabula County Medical Center SystemThiamine (Bld) [Moles/Vol]on 20-26-7424Vfqgcqe (Vitamin B1), WB68 nmol/LBgj82-710XcyJzypbkPremier Health Miami Valley HospitalComment on above: Result Comment: NOTE ADDITIONAL INFORMATION This test was developed and its performance characteristics determined by [facility] in a manner consistent with CLIA requirements. This test has not been cleared or approved by the U.S. Food and Drug Administration. Test Performed by: [place] [address] Cleaning Matron: Ester Macdonald Ph.D.; CLIA# [id number] By: #### 43080- 7 #### [facility] ([id number]) [address], [address] [place], [place] [address]Nftsizh (Vitamin B1), WB56 nmol/POuu39-930DkaXoxvdfPremier Health Miami Valley HospitalComment on above:Result Comment: NOTE ADDITIONAL INFORMATION This test was developed and its performance characteristics determined by [facility] in a manner consistent with CLIA requirements. This test has not been cleared or approved by the U.S. Food and Drug Administration. Test Performed by: [place] [address] Cleaning Matron: Ester Macdonald Ph.D.; CLIA# [id number] By: #### 93410- 7 #### [facility] ([id number]) [address], [address] [place], [place] [address]CUCGFGW B12on 32-39-2581Ogdrgulfy (Vitamin B12) [Mass/Vol]295 pg/uVUkqauh109-897AlaHmvtzh [facility]ria Memorial HospitalComment on above:Performed By: #### 35056-4 #### [facility] ([id number]) [address], [address] [place], [place] [address]Kfotaoo B12on 96-33-4067Pcwehyhjq (Vitamin B12) [Mass/Vol]295 pg/mL180 - 914 pg/mLOhioHealth Grady Memorial HospitalCBC without diffon 05-09-2024 Interpretation and review of laboratory resultsAbnormDayton Osteopathic Hospital RBC (Bld) [#/Vol]2.97 10*6/uLLowOhioHealth Grady Memorial HospitalWBC corrected for nucl RBC Auto (Bld) [#/Vol]7.1PSouthwood Psychiatric HospitalCOMPLETE BLOOD COUNTon 68-59-8612Brlqscplcpi distribution width (RBC) [Ratio]12.7 %Normal 11.5-15.0Ohio[facility] Grady Memorial HospitalComment on above:Performed By: #### CBCDavid, PINR, 35024-0 #### [facility] ([id number]) [address], [address] [place], [place] [address]Stqhbspemy (Bld) [Volume fraction]28.6 %Jta89-65PsjYikaklWilson HealthComment on above:Performed By: #### CBCA, PINR, 25660-2 #### [facility] ([id number]) [address], [address] [place], [place] [address]Ufoeimixni (Bld) [Mass/Vol]10.1 g/dLLow11.7-15.5PClermont County HospitalComment on above:Performed By: #### CBCA, PINR, 89127-1 #### [facility] ([id number]) [address], [address] [place], [place] [address]YMV (RBC) [Entitic mass]33.9 cdXlertu20-86FmqOjywfi Health SystemComment on above:Performed By: #### CBCA, PINR, 47413-2 #### [facility] ([id number]) [address], [address] [place], [place] [address]GIBT (RBC) [Mass/Vol]35.2 g/pRUlleub81-68MnvFaqmirOhioHealth Grady Memorial Hospital Comment on above:Performed By: #### CBCA, PINR, 27998-0 #### [facility] ([id number]) [address], [address] [place], [place] [address]DDW (RBC) [Entitic vol]96 wFWekyen04-420XpyDalhop Health System Comment on above:Performed By: #### KEVIN BENOIT, 69033-9 #### [facility] ([id number]) [address], [address] [place], [place] [address]Mpxcpwyq mean volume (Bld) [Entitic vol]8.9 fLNormal7-12 [facility] SystemComment on above:Performed By: #### KAYCEE, PINR, 01391-9 #### [facility] ([id number]) [address], [address] [place], [place] [address]Syvynynjr (Bld) [#/Vol]138 10*3/wILgz013-709OidJnzbgv Health SystemComment on above:Performed By: #### KAYCEE, PINR, 11240-1 #### [facility] ([id number]) [address], [address] [place], [place] [address]AYC COUNT2.97 X10E12/LLow3.80-5.20[facility] Comment on above:Performed By: #### KAYCEE, SURENDRAR, 02753-5 #### [facility] ([id number]) [address], [address] [place], [place] [address]MPC (Bld) [#/Vol]7.1 10*3/uLNormal4.0-11.0[facility] Jewish HospitalComment on above:Performed By: #### KAYCEE, PINR, 70288-6 #### [facility] ([id number]) [address], [address] [place], [place] [address]VTDZPGFPMUUGN METABOLIC PANELon 10-53-9456SFJ [Catalytic activity/Vol]52 U/NLzcvyz06-337IzdHrwwnk Health SystemComment on above:Performed By: #### CBCaDvid, PINR, 03622-0 #### [facility] ([id number]) [address], [address] [place], [place] [address]Yhtmx gap [Moles/Vol]5 mmol/LNormal5-15[facility] Comment on above:Performed By: #### KAYCEE PINR, 42142-2 #### [facility] ([id number]) [address], [address] [place], [place] [address]EJH [Catalytic activity/Vol]44 U/LHigh0-41[facility] SystemComment on above:Performed By: #### KAYCEE PINR, 85571-8 #### [facility] ([id number]) [address], [address] [place], [place] [address]Zaxhsswsm [Mass/Vol]0.8 mg/dLNormal0.3-1.2PClermont County HospitalComment on above:Performed By: #### KAYCEE PINR, 85775-1 #### [facility] ([id number]) [address], [address] [place], [place] [address]Qmdatpv [Mass/Vol]7.8 mg/dLLow8.5-10.5PClermont County Hospital Comment on above:Performed By: #### KAYCEE PINR, 50969-1 #### [facility] ([id number]) [address], [address] [place], [place] [address]Jskufyvz [Moles/Vol]96 mmol/SRin93-595KakDxhgfoOhioHealth Grady Memorial Hospital Comment on above:Performed By: #### KAYCEE, PINR, 75095-4 #### [facility] ([id number]) [address], [address] [place], [place] [address]WF[address] [Moles/Vol]28 mmol/AWdflpy50-15KvoNqqaxpClermont County Hospital Comment on above:Performed By: #### KAYCEE, PINR, 16169-2 #### [facility] ([id number]) [address], [address] [place], [place] [address]Rlnhisznmn [Mass/Vol]0.37 mg/dLLow0.40-1.00[facility] SystemComment on above:Result Comment: METHOD TRACEABLE TO IDMS STANDARD Performed By: #### KEVIN BENOIT, 01722-2 #### [facility] ([id number]) [address], [address] [place], [place] [address]Ioygwbq [Mass/Vol]86 mg/tQWqdzak80-33GwzJcadkhOhioHealth Grady Memorial Hospital Comment on above:Performed By: #### KEVIN BENOIT, 48016-1 #### [facility] ([id number]) [address], [address] [place], [place] [address]Gsfjxkpkf [Moles/Vol]3.9 mmol/LNormal3.5-5.0[facility] HospitalComment on above:Performed By: #### KEVIN BENOIT, 84658-3 #### [facility] ([id number]) [address], [address] [place], [place] [address]Nevcizs [Mass/Vol]5.2 g/dLLow6.0-8.0[facility] Comment on above:Performed By: #### KEVIN BENOIT, 95591-1 #### [facility] ([id number]) [address], [address] [place], [place] [address]Sifhyk [Moles/Vol]129 mmol/FRbq206-299SlhQasytw [facility] Comment on above:Performed By: #### KEVIN BENOIT, 11096-4 #### [facility] ([id number]) [address], [address] [place], [place] [address]Tevz nitrogen [Mass/Vol]8 mg/dLNormal5-27[facility] Comment on above:Performed By: #### KEVIN BENOIT, 14673-3 #### [facility] ([id number]) [address], [address] [place], [place] [address]Bdigjly [Mass/Vol]3.0 g/dLLow3.2-5.3[facility] [place] [facility] Comment on above:Performed By: #### KEVIN BENOIT, 09038-4 #### [facility] ([id number]) [address] [facility], [address] [place] [address]UGJ [Catalytic activity/Vol]15 U/LNormal0-31PKing's Daughters Medical Center OhioComment on above:Performed By: #### KEVIN BENOIT, 78590-4 #### [facility] ([id number]) [address] [facility], [address] [place] [address]48cHFO (CKD-EPI) NON-RACE DEPENDENT>90Normal>59ProPremier Health Miami Valley HospitalComment on above:Result Comment: Reported eGFR is based on the CKD-EPI 2020 equation that does not use a race coefficient.Performed By: #### KEVIN BENOIT, 04400-3 #### [facility] ([id number]) [address] [facility], [address] [place] [address]Rumnqky.ionized (Bld) [Mass/Vol]on 66-45-2181Hgsvvjhivpwlwh and review of laboratory resultsAbnoCentral Harnett HospitalIONIZED CALCIUM4.3 mg/dLLow4.5-5.3PKing's Daughters Medical Center OhioComment on above:Performed By: #### KEVIN BENOIT, 06614-7 #### [facility] ([id number]) [address] [facility], [address] [address]Hphekrggejmfuv and review of laboratory resultsAbnormalPenn State Health Milton S. Hershey Medical CenterCardiac Invasiveon 52-59-1213Ukpwqzboc Study observation (narrative)[facility] HospitalComprehensive metabolic panelon 86-36-5357Tyxevny [Mass/Vol]3 g/dLLow3.2 - 5.3 g/dLOhioHealth Grady Memorial HospitalALT No additional P-5'-P [Catalytic activity/Vol]15 U/L0 - 31 U/LPrElyria Memorial HospitaleGFR (CKD-EPI)non-race dependent- [facility] Interpretation and review of laboratory resultsAbnormalProMedica Health System ELECTROLYTESon 82-74-4556Atowb gap [Moles/Vol]6 mmol/LNormal5-15Mer[facility] The Jewish HospitalComment on above:Performed By: #### ICODE #### [facility] ([id number]) [address] [facility], [place] [address]Ujwycwzj [Moles/Vol]96 mmol/XZlb03-077IcxVyghfuMercy Health – The Jewish Hospital Comment on above:Performed By: #### ICODE #### [facility] ([id number]) [address] [facility] [place] [address]ZS6 [Moles/Vol]29 mmol/QTwamsz83-14TgzAwfpgsKing's Daughters Medical Center Ohio Comment on above:Performed By: #### ICODE #### [facility] ([id number]) [address] [facility], [place] [address]Booduicbb [Moles/Vol]4.3 mmol/LNormal3.5-5.0Mer[facility] – [facility] Jewish HospitalComment on above:Performed By: #### ICODE #### [facility] ([id number]) [address] [facility], [place] [address]Xuugyv [Moles/Vol]131 mmol/WGnc242-590BpyLppdmoMercy Health – The Jewish Hospital Comment on above:Performed By: #### ICODE #### [facility] ([id number]) [address] [facility], [place] [address]Ciegz gap [Moles/Vol]7 mmol/LNormal5-15[facility] Comment on above:Performed By: #### ICODE #### [facility] ([id number]) [address] [facility], [place] [address]Wxbctybv [Moles/Vol]97 mmol/EKao73-434EvrDuzhpyMercy Health – The Jewish Hospital Comment on above:Performed By: #### ICODE #### [facility] ([id number]) [address] [facility] [place], [place] [address]EJ7 [Moles/Vol]26 mmol/HCqspsd34-25ZcrKoiyvc [facility] Comment on above:Performed By: #### ICODE #### [facility] ([id number]) [address] [facility] [place], [place] [address]Drddyovxh [Moles/Vol]4.0 mmol/LNormal3.5-5.0ProMedica [place] HospitalComment on above:Performed By: #### ICODE #### [facility] ([id number]) [address] [facility], [place] [address]Tswbum [Moles/Vol]130 mmol/YIxs810-340SocWcuyhw [facility] Comment on above:Performed By: #### ICODE #### [facility] ([id number]) [address] [facility] [place], [place] [address]Dwwps gap [Moles/Vol]10 mmol/LNormal5-15ProWadsworth-Rittman Hospitalca [place] HospitalComment on above:Performed By: #### SURENDRA BENOITR, 31780-4 #### [facility] ([id number]) [address], [address] [place], [place] [address]Krkpjmuz [Moles/Vol]99 mmol/IVmdynw87-207UysToywlh [place] HospitalComment on above:Performed By: #### KAYCEE PINR, 93246-3 #### [facility] ([id number]) [address], [address] [place], [place] [address]KM8 [Moles/Vol]22 mmol/YGeblzj55-32TxvTvfajpKing's Daughters Medical Center [place] Comment on above:Performed By: #### KAYCEE, PINR, 57239-6 #### [facility] ([id number]) [address], [address] [place], [place] [address]Dztfbolqv [Moles/Vol]4.1 mmol/LNormal3.5-5.0ProWadsworth-Rittman Hospitalca [place] HospitalComment on above:Performed By: #### KAYCEE PINR, 15678-8 #### [facility] ([id number]) [address], [address] [place], [place] [address]Kfonps [Moles/Vol]131 mmol/CKjq688-807DllNkicvwPremier Health Miami Valley Hospital Comment on above:Performed By: #### SURENDRA BENOITR, 67461-0 #### [facility] ([id number]) [address], [address] [place], [place] [address]Ipwju gap [Moles/Vol]6 mmol/LNormal5-15ProPremier Health Miami Valley Hospital Comment on above:Performed By: #### SURENRDA BENOITR, 74847-2 #### [facility] ([id number]) [address], [address] [place], [place] [address]Bxvaehkb [Moles/Vol]96 mmol/OZpb88-962VmrMoegdePremier Health Miami Valley Hospital Comment on above:Performed By: #### KEVIN BENOIT, 39978-9 #### [facility] ([id number]) [address], [address] [place], [place] [address]LM7 [Moles/Vol]28 mmol/MHmzrtb82-36WksPqxfnl [facility] Comment on above:Performed By: #### SURENDRA BENOITR, 47133-9 #### [facility] ([id number]) [address], [address] [place], [place] [address]Qingktzqm [Moles/Vol]4.1 mmol/LNormal3.5-5.0ProShelby Baptist Medical Center QuiñonezKettering HealthComment on above:Performed By: #### KAYCEE PINR, 38532-1 #### [facility] ([id number]) [address], [address] [place], [place] [address]Dbkmvn [Moles/Vol]130 mmol/GOut855-017EuaBoiqwhPremier Health Miami Valley Hospital Comment on above:Performed By: #### SURENDRA BENOITR, 24900-8 #### [facility] ([id number]) [address], [address] [place], [place] [address]Ohcpwauitwo panelon 98-37-4203Byest gap [Moles/Vol]6 mmol/L5 - 15 mmol/LProMedica Health SystemChloride [Moles/Vol]96 mmol/LLow98 - 109 mmol/L ProMedica Health SystemCO2 [Moles/Vol]29 mmol/L22 - 32 mmol/LProMedica Health SystemInterpretation and review of laboratory resultsAbnormalProMedica Health SystemPotassium [Moles/Vol]4.3 mmol/L3.5 - 5.0 mmol/LProMedica Health System Sodium [Moles/Vol]131 mmol/DHwf880 - 146 mmol/LProMedica Health SystemProMedica Health SystemAnion gap [Moles/Vol]7 mmol/L5 - 15 mmol/LProMedica Health System Chloride [Moles/Vol]97 mmol/LLow98 - 109 mmol/LProMedica Health SystemCO2 [Moles/Vol]26 mmol/L22 - 32 mmol/LProMedica Health SystemInterpretation and review of laboratory resultsAbnormalProMedica Health SystemPotassium [Moles/Vol] 4 mmol/L3.5 - 5.0 mmol/LProMedica Health SystemSodium [Moles/Vol]130 mmol/LLow 134 - 146 mmol/LProMedica Health SystemProMedica Health SystemAnion gap [Moles/Vol]10 mmol/L5 - 15 mmol/LProMedica Health SystemChloride [Moles/Vol]99 mmol/L98 - 109 mmol/LProMedica Health SystemCO2 [Moles/Vol]22 mmol/L22 - 32 mmol/LProMedica Health SystemInterpretation and review of laboratory results AbnormalProMedica Health SystemPotassium [Moles/Vol]4.1 mmol/L3.5 - 5.0 mmol/L ProMedica Health SystemSodium [Moles/Vol]131 mmol/SXsb698 - 146 mmol/LProMedica Health SystemProMedica Health SystemAnion gap [Moles/Vol]6 mmol/L5 - 15 mmol/L [facility] Health SystemChloride [Moles/Vol]96 mmol/LLow98 - 109 mmol/LProMedica Health SystemCO2 [Moles/Vol]28 mmol/L22 - 32 mmol/LProMedica Health System Interpretation and review of laboratory resultsAbnormalProMedica Health System Potassium [Moles/Vol]4.1 mmol/L3.5 - 5.0 mmol/LPrColorado Mental Health Institute at [facility]ueblo Health SystemSodium [Moles/Vol]130 mmol/ZJew054 - 146 mmol/LPrNortheast Missouri Rural Health Networkica Health SystemProUniversity Hospitals Portage [facility] Center SystemIonized calciumon 20-54-3586Ikwwath.ionized (Bld) [Mass/Vol]4.3 mg/dLLow 4.5 - 5.3 mg/dLAshtabula County Medical Center SystemCalcium.ionized (Bld) [Mass/Vol]4.3 mg/dL Low4.5 - 5.3 mg/dLAshtabula County Medical Center SystemIonized magnesiumon 21-81-3250Cfvatzbsk Ionized ISE (Bld) [Moles/Vol]0.66 mmol/L0.45 - 0.74 mmol/[facility] HospitalLabor[facility] - Chemistry and Chemistry - challengeon 60-48-7456Djtnfjtbr [Mass/Vol]1.9 mg/dLNormal1.8-2.6Ohio[facility] Memorial HospitalComment on above: Performed By: #### KEVIN BENOIT, 54323-3 #### [facility] ([id number]) [address] [facility], [address] [place], [place] [address]Nybvxidrs [Mass/Vol]2.5 mg/dLNormal2.4-4.9Ohio[facility] HospitalComment on above:Performed By: #### KEVIN BENOIT, 11694-5 #### [facility] ([id number]) [address] [facility], [address] [place], [place] [address]Osoqhjicu Ionized ISE (Bld) [Moles/Vol]on 10-35-9284Zolcyykct [Moles/Vol]0.66 mmol/LNormal0.45-0.74Mer[facility] Jewish HospitalComment on above: Result Comment: NEW REFERENCE RANGEPerformed By: #### KEVIN BENOIT, 44910-3 #### [facility] ([id number]) [address] [facility], [address] [place], [place] [address]Kr Panel Informationon 73-48-7147JizBygjzjOhioHealth Grady Memorial Hospital ProMedicSt. Cloud VA [facility] Care System SystemAnti XA unfractionated heparinon 32-83-6573Jacjuli unfractionated Chromogenic method Qn (PPP)LowOhioHealth Grady Memorial HospitalCBC without diffon 82-60-8769Ervujaearnt distribution width (RBC) [Ratio]13.2 %11.5 - 15.0 % [facility] HospitalHematocrit (Bld) [Volume fraction]34 %Low35 - 47 % [facility] HospitalHemoglobin (Bld) [Mass/Vol]12 g/dL11.7 - 15.5 g/dL [facility] HospitalInterpretation and review of laboratory resultsAbnormal [facility] Campus Medical CenterH (RBC) [Entitic mass]33.2 pg27 - 34 [facility] HospitalMCHC (RBC) [Mass/Vol]35.5 g/dL32 - 36 g/dLOhioHealth Grady Memorial HospitalMCV (RBC) [Entitic vol]94 fL80 - 100 [facility] Medical CenterPlatelet mean volume (Bld) [Entitic vol]PLATELET CLUMPS PRECLUDE COUNT7 - 12 [facility] Platelets (Bld) [#/Vol]ESTIMATE OF PLATELETS, NORMALOhioHealth Grady Memorial HospitalRBC (Bld) [#/Vol]3.63 10*6/uLLowOhioHealth Grady Memorial HospitalWBC corrected for nucl RBC Auto (Bld) [#/Vol]10[facility] Hershey Medical CenterCOMPLETE BLOOD COUNTon 64-58-0725Nlgxcmazzwv distribution width (RBC) [Ratio]13.2 %Normal 11.5-15.0Mer[facility] Jewish HospitalComment on above:Performed By: #### KEVIN BENOIT, 98370-6 #### [facility] ([id number]) [address], [address] [place], [place] [address]Gwfxfkitvg (Bld) [Volume fraction]34.0 %Ucz44-21GmvItfmicMercy Health – The Jewish HospitalComment on above:Performed By: #### KEVIN BENOIT, 13795-0 #### [facility] ([id number]) [address], [address] [place], [place] [address]Wkowcmxkbu (Bld) [Mass/Vol]12.0 g/lLWtpyrv90.7-15.5ProMedica [place] HospitalComment on above:Performed By: #### SURENDRA BENOITR, 80086-5 #### [facility] ([id number]) [address], [address] [place], [place] [address]ASO (RBC) [Entitic mass]33.2 qoKjykps06-98HvqDagywg [place] HospitalComment on above:Performed By: #### KAYCEE PINDanyn, 22316-4 #### [facility] ([id number]) [address], [address] [place], [place] [address]DWWT (RBC) [Mass/Vol]35.5 g/gXCyhpun61-95AakKjkrqc [place] HospitalComment on above:Performed By: #### KAYCEE PINR, 10140-1 #### [facility] ([id number]) [address], [address] [place], [place] [address]TAN (RBC) [Entitic vol]94 zHDbltfx70-636OhuTtskkk [place] HospitalComment on above:Performed By: #### SURENDRA BENOITR, 36913-4 #### [facility] ([id number]) [address], [address] [place], [place] [address]XQZYOMMRPSY CLUMPS PRECLUDE COUNTNormal7-12ProMedBarnesville Hospital HospitalComment on above:Performed By: #### KAYCEE PINR, 12910-0 #### [facility] ([id number]) [address], [address] [place], [place] [address]VGTEBDOD COUNTESTIMATE OF PLATELETS, FRGJILZxcauj738-424 [facility] [place] HospitalComment on above:Result Comment: PLATELET CLUMPS PRECLUDE COUNTPerformed By: #### KAYCEE, PINR, 10348-3 #### [facility] ([id number]) [address], [address] [place], [place] [address]IKO COUNT3.63 X10E12/LLow3.80-5.20[facility] [place] [facility] Comment on above:Performed By: #### KEVIN BENOIT, 66400-0 #### [facility] ([id number]) [address], [address] [place], [place] [address]ZOH (Bld) [#/Vol]10.0 10*3/uLNormal4.0-11.0[facility] [place] HospitalComment on above:Performed By: #### KEVIN BENOIT, 47127-2 #### [facility] ([id number]) [address], [address] [place], [place] [address]NZZFNGUOWEPXF METABOLIC PANELon 16-51-7003Kbtcxff [Mass/Vol]3.3 g/dLNormal3.2-5.3Pro[facility]myra HospitalComment on above:Performed By: #### KEVIN BENOIT, 78948-2 #### [facility] ([id number]) [address], [address] [place], [place] [address]YTR [Catalytic activity/Vol]59 U/XBbdikh75-885VejGjglsl [place] HospitalComment on above:Performed By: #### KEVIN BENOIT, 09439-8 #### [facility] ([id number]) [address], [address] [place], [place] [address]JFS [Catalytic activity/Vol]25 U/LNormal0-31ProMedBarnesville Hospital HospitalComment on above:Performed By: #### SURENDRA BENOITR, 26119-8 #### [facility] ([id number]) [address], [address] [place], [place] [address]Kbwxh gap [Moles/Vol]7 mmol/LNormal5-15ProEast [facility] Hospital Comment on above:Performed By: #### SURENDRA BENOITR, 65229-2 #### [facility] ([id number]) [address], [address] [place], [place] [address]PWF [Catalytic activity/Vol]110 U/LHigh0-41ProPremier Health Miami Valley HospitalComment on above:Performed By: #### KEVIN BENOIT, 86857-8 #### [facility] ([id number]) [address], [address] [place], [place] [address]Ncxuefwwj [Mass/Vol]1.0 mg/dLNormal0.3-1.2PKing's Daughters Medical Center OhioComment on above:Performed By: #### KEVIN BENOIT, 46716-2 #### [facility] ([id number]) [address], [address] [place], [place] [address]Pippyzq [Mass/Vol]8.2 mg/dLLow8.5-10.5PKing's Daughters Medical Center [place] Comment on above:Performed By: #### KEVIN BENOIT, 28380-1 #### [facility] ([id number]) [address], [address] [place], [place] [address]Rtbqxfwk [Moles/Vol]93 mmol/QVpx72-491YboZgadqyMercy Health – The Jewish Hospital Comment on above:Performed By: #### KEVIN BENOIT, 02704-3 #### [facility] ([id number]) [address], [address] [place], [place] [address]AE8 [Moles/Vol]28 mmol/FIfpdvu06-83OmgHvoorqKing's Daughters Medical Center [place] Comment on above:Performed By: #### KEVIN BENOIT, 20300-5 #### [facility] ([id number]) [address], [address] [place], [place] [address]Czrwobzbcx [Mass/Vol]0.48 mg/dLNormal0.40-1.00ProPremier Health Miami Valley HospitalComment on above:Result Comment: METHOD TRACEABLE TO IDMS STANDARD Performed By: #### KEVIN BENOIT, 00683-7 #### [facility] ([id number]) [address], [address] [place], [place] [address]bZFU (CKD-EPI) NON-RACE DEPENDENT>90Normal>59ProEast Liverpool City Hospital HospitalComment on above:Result Comment: Reported eGFR is based on the CKD-EPI 2020 equation that does not use a race coefficient.Performed By: #### KEVIN BENOIT, 78432-8 #### [facility] ([id number]) [address], [address] [place], [place] [address]Dscbmqp [Mass/Vol]94 mg/nQSrkgvw92-43MwaPjbtwj [facility] Comment on above:Performed By: #### KEVIN BENOIT, 47922-9 #### [facility] ([id number]) [address], [address] [place], [place] [address]Stopdmleq [Moles/Vol]3.3 mmol/LLow3.5-5.0ProPremier Health Miami Valley HospitalComment on above:Performed By: #### KEVIN BENOIT, 37014-3 #### [facility] ([id number]) [address], [address] [place], [place] [address]Vfudbaz [Mass/Vol]5.8 g/dLLow6.0-8.0[facility] Comment on above:Performed By: #### KEVIN BENOIT, 38982-8 #### [facility] ([id number]) [address], [address] [place], [place] [address]Cnhtiv [Moles/Vol]128 mmol/HDbe875-554QsiXhgrzlPremier Health Miami Valley Hospital Comment on above:Performed By: #### KEVIN BENOIT, 28499-4 #### [facility] ([id number]) [address], [address] [place], [place] [address]Jdub nitrogen [Mass/Vol]10 mg/dLNormal5-27ProPremier Health Miami Valley HospitalComment on above:Performed By: #### KEVIN BENOIT, 08899-8 #### [facility] ([id number]) [address], [address] [place], [place] [address]Ukdzkuc echo study Procedureon 11-63-1943PQOWYHYJqaAfckab Health SystemComprehensive metabolic panelon 00-86-0075Ohsejha [Mass/Vol]3.3 g/dL3.2 - 5.3 g/dLProWilson HealthALP [Catalytic activity/Vol]59 U/L39 - 130 U/L [facility] HospitalALT No additional P-5'-P [Catalytic activity/Vol]25 U/L0 - 31 U/LPrColorado Mental Health Institute at Pueblo Health SystemAnion gap [Moles/Vol]7 mmol/L5 - 15 mmol/L [facility] SystemAST [Catalytic activity/Vol]110 U/LHigh0 - 41 U/L [facility] HospitalBilirubin [Mass/Vol]1 mg/dL0.3 - 1.2 mg/dLOhioHealth Grady Memorial HospitalCalcium [Mass/Vol]8.2 mg/dLLow8.5 - 10.5 mg/dLOhioHealth Grady Memorial HospitalChloride [Moles/Vol]93 mmol/LLow98 - 109 mmol/[facility] SystemCO2 [Moles/Vol]28 mmol/L22 - 32 mmol/[facility] SystemCreatinine [Mass/Vol] 0.48 mg/dL0.40 - 1.00 mg/dLOhioHealth Grady Memorial HospitaleGFR (CKD-EPI)non-race dependent- PINThe Rehabilitation Institute of St. LouisGlucose [Mass/Vol]94 mg/dL65 - 99 mg/dL [facility] HospitalInterpretation and review of laboratory resultsAbnormal [facility] SystemPotassium [Moles/Vol]3.3 mmol/LLow3.5 - 5.0 mmol/L [facility] SystemProtein [Mass/Vol]5.8 g/dLLow6.0 - 8.0 g/dLAshtabula County Medical Center SystemSodium [Moles/Vol]128 mmol/KSzf731 - 146 mmol/LPrSelect Medical Specialty Hospital [facility] [place] SystemUrea nitrogen [Mass/Vol]10 mg/dL5 - 27 mg/dLAshtabula County Medical Center System Cortisolon 81-86-9708Byalcqfd [Mass/Vol]15.2 ug/dLOhioHealth Grady Memorial Hospital Cortisol [Mass/Vol]on 22-49-0255TvnMxxqjtOhioHealth Grady Memorial HospitalCORTISOL15.2 ug/dLNormal [facility] HospitalComment on above:Result Comment: Due to the diurnal variation of cortisol levels in normal subjects, all cortisol measurements should be referenced to the time of day of sample collection. AM Cortisol Age>=6 6.7-22.4 ug/dL PM Cortisol Age>=6 <10 ug/dL Performed By: #### KAYCEE, PINR, 47870-6 #### [facility] ([id number]) [address], [address] [place], [place] [address]GXKE SCREEN, URINEon 55-12-4242LKQQUMLVXJF/METHAMPNegativeNormal NEGProPremier Health Miami Valley HospitalComment on above:Result Comment: AMPH/METH screening cut off = 1000 ng/mLPerformed By: #### KAYCEE, PINR, 72336-4 #### [facility] ([id number]) [address], [address] [place], [place] [address]QVIKLKJLCKYEEyrmhygxMglkffTHKOagJquwtv [place] HospitalComment on above:Result Comment: Barbiturates screening cut off value = 200 ng/mLPerformed By: #### KAYCEE, PINR, 79558-6 #### [facility] ([id number]) [address], [address] [place], [place] [address]FMBXMPQGGZPRFFOAcuwqqdnHpvfohkoOEWTyqYpjwmy [facility] Comment on above:Result Comment: Confirmation available upon request. Benzodiazepines screening cut off value = 200 ng/mLPerformed By: #### KAYCEE, PINR, 02944-9 #### [facility] ([id number]) [address], [address] [place] [address]WNTNZZFCWNWUXmpnkdizHbmtewJQFQijHhnqwc [place] HospitalComment on above:Result Comment: Cannabinoids/THC screening cut off value = 50 ng/mL Performed By: #### KAYCEE, PINR, 01520-8 #### [facility] ([id number]) [address], [address] [place], [place] [address]HGKAFEQ METABOLITENegativeNormalNEGProEast Liverpool City Hospital Hospital Comment on above:Result Comment: Cocaine screening cut off value = 300 ng/mL Performed By: #### KAYCEE, PINR, 60946-8 #### [facility] ([id number]) [address] [facility], [address] [place], [place] [address]JTJXJIKAaltmbqrLwkpmdKGVQiyQmtipm [facility] Memorial HospitalComment on above:Result Comment: Ecstasy screening cut off value = 500 ng/mL This report is intended for use in clinical monitoring or management of patients.Performed By: #### KAYCEE, PINR, 33095-5 #### [facility] ([id number]) [address] [facility], [address] [place], [place] [address]JSBYREEOGDugozbtcOyqkxzYORIaxLdhnlq [place] HospitalComment on above:Result Comment: Methadone screening cut off value = 300 ng/mL.Performed By: #### KAYCEE, PINR, 03594-6 #### [facility] ([id number]) [address], [address] [place], [place] [address]WFUJXEBFcrpswgqLrwbirjkQJYZeeDhayfq [place] HospitalComment on above:Result Comment: Confirmation available upon request. Opiates screening cut off value = 300 ng/mL NOTE: This test is used for the detection of codeine, hydrocodone (>1000 ng/mL), morphine and hydromorphone (>900 ng/mL) in urine.Performed By: #### KAYCEE, PINR, 67581-4 #### [facility] ([id number]) [address], [address] [place], [place] [address]KGZLWKHRZRgqvabapVlojmjCDWDrbIkgwwq [place] HospitalComment on above:Result Comment: Oxycodone screening cut off value = 300 ng/mL NOTE: This test is used for the detection of oxycodone and oxymorphone in urine.Performed By: #### KEVIN BENOIT, 01437-3 #### [facility] ([id number]) [address], [address] [place], [place] [address]PPLBZOLFRHQTSGmpolvcsSmodsuIAJXzbCnoxnw [place] HospitalComment on above:Result Comment: Phencyclidine screening cut off value = 25 ng/mL Performed By: #### KEVIN BENOIT, 50651-5 #### [facility] ([id number]) [address] [facility], [address] [place], [place] [address]Cqga Screen, Urineon 89-26-2998Aztkhpvaarsr Screen method >1000 ng/mL Ql (U)NegativeNegative^NegativeProMediwy Health SystemBarbiturates Screen Ql (U)NegativeNegative^NegativeMercy Health West Hospital Health SystemBenzodiazepines Ql (U) PositiveAbnormalNegative^NegativeProMedica Health SystemCocaine Ql (U)Negative Negative^NegativeMercy Health West Hospital Health SystemInterpretation and review of laboratory resultsAbnormalProMedica Health SystemMethadone Screen Ql (U)Negative Negative^NegativeProMedica Health SystemMethylenedioxymethamphetamine Screen Ql (U)NegativeNegative^NegativeProMedica Health SystemOpiates Screen Ql (U)Positive AbnormalNegative^NegativeProMedica Health SystemoxyCODONE Ql (U)Negative Negative^NegativeAshtabula County Medical Center SystemPhencyclidine Screen method >25 ng/mL Ql (U)NegativeNegative^NegativeWhite River Junction Va Medical CenterMediBlanchard Valley [facility] SystemTetrahydrocannabinol Screen method >50 ng/mL Ql (U)NegativeNegative^NegativeMercy Health West Hospital Health SystemProMedica Health SystemELECTROLYTESon 98-55-0857Ymkyq gap [Moles/Vol]6 mmol/LNormal5-15 [facility] HospitalComment on above:Performed By: #### KEVIN BENOIT, 41316-8 #### [facility] ([id number]) [address], [address] [place], [place] [address]Lqnrnyyp [Moles/Vol]97 mmol/IOfg17-590WaaBxqchiMercy Health – [facility] Hospital Comment on above:Performed By: #### KEVIN BENOIT, 94826-7 #### [facility] ([id number]) [address], [address] [place], [place] [address]DA9 [Moles/Vol]26 mmol/STtzxoa11-53LtjZnyzyxKing's Daughters [facility] [place] Comment on above:Performed By: #### KAYCEE, PINR, 81292-5 #### [facility] ([id number]) [address], [address] [place], [place] [address]Qsbzcrlyv [Moles/Vol]4.3 mmol/LNormal3.5-5.0Pro[facility] QuiñonezKettering HealthComment on above:Performed By: #### KAYCEE, PINR, 60711-3 #### [facility] ([id number]) [address], [address] [place], [place] [address]Dosxiv [Moles/Vol]129 mmol/PYzw935-747GxkAoccoj QuiñonezKettering Health Comment on above:Performed By: #### KAYCEE, PINR, 54211-0 #### [facility] ([id number]) [address], [address] [place], [place] [address]Hbbxl gap [Moles/Vol]8 mmol/LNormal5-15ProPrem[facility] Comment on above:Performed By: #### KAYCEE, PINR, 72440-6 #### [facility] ([id number]) [address], [address] [place], [place] [address]Alcnrzrm [Moles/Vol]95 mmol/MLwk34-046BktAgizvx QuiñonezRegional Hospital for [facility] Comment on above:Performed By: #### CBCA, PINR, 15280-3 #### [facility] ([id number]) [address], [address] [place], [place] [address]GL0 [Moles/Vol]24 mmol/OJbqaeb33-48GarNzrmghKing's Daughters Medical [facility] [place] Comment on above:Performed By: #### KAYCEE, PINR, 71531-8 #### [facility] ([id number]) [address], [address] [place], [place] [address]Mneblkcqn [Moles/Vol]4.0 mmol/LNormal3.5-5.0Mer[facility] Jewish HospitalComment on above:Performed By: #### SURENDRA BENOITR, 29548-2 #### [facility] ([id number]) [address], [address] [place], [place] [address]Rwwgxg [Moles/Vol]127 mmol/QYyq961-227NufDeeqwdMercy Health – The Jewish Hospital Comment on above:Performed By: #### KEIVN BENOIT, 19667-0 #### [facility] ([id number]) [address], [address] [place], [place] [address]UIATPRBeh 03-25-3349Meblzip [Mass/Vol]mg/dLNormal0.00-0.08 [facility] HospitalComment on above:Result Comment: This report is intended for use in clinical monitoring or management of patients.Performed By: #### KAYCEE, SURENDRAR, 98838-5 #### [facility] ([id number]) [address], [address] [place], [place] [address]Uayngxnvsbd panelon 68-73-5869Uhdic gap [Moles/Vol]6 mmol/L5 - 15 mmol/LProMedica Health SystemChloride [Moles/Vol]97 mmol/LLow98 - 109 mmol/L ProMlawrence medical center Health SystemCO2 [Moles/Vol]26 mmol/L22 - 32 mmol/LProMedica Health SystemInterpretation and review of laboratory resultsAbnormalProMedica Health SystemPotassium [Moles/Vol]4.3 mmol/L3.5 - 5.0 mmol/LProMedica Health System Sodium [Moles/Vol]129 mmol/NAci493 - 146 mmol/LProMedica Health SystemProMedica Health SystemAnion gap [Moles/Vol]8 mmol/L5 - 15 mmol/LProMedica Health System Chloride [Moles/Vol]95 mmol/LLow98 - 109 mmol/LProMedica Health SystemCO2 [Moles/Vol]24 mmol/L22 - 32 mmol/LProMedica Health SystemInterpretation and review of laboratory resultsAbnoCentral Harnett HospitalPotassium [Moles/Vol] 4 mmol/L3.5 - 5.0 mmol/LPrColorado Mental Health Institute [facility] Health SystemSodium [Moles/Vol]127 mmol/LLow 134 - 146 mmol/LProMedUniversity Hospitals Elyria Medical Center SystemProUniversity Hospitals Port[facility] SystemEthanolon 02-69-3258Evmwtya [Mass/Vol]g/dL0.00 - 0.08 g/dLOhioHealth Grady Memorial HospitalHGB A1C (GLYCO-HGB)on 49-24-4360Klismva [Mass/Vol]120 mg/dLNoAvita Health SystemComment on above:Performed By: #### KEVIN BENOIT, 81197-2 #### [facility] ([id number]) [address] [place] [address], [address] [place], [place] [address]ViM3p (Bld) [Mass fraction]5.8 %High4.4-5.6Mer[facility] Jewish HospitalComment on above:Result Comment: NOTE ADA Guidelines Result HgbA1c Normal : less than 5.7 % Prediabetes : 5.7 % to 6.4 % Diabetes : > 6.4 % Use with caution in patients with abnormal hemoglobin variants as the half-life of red blood cells and in vivo glycation rates are affected.Performed By: #### KEVIN BENOIT, 95452-2 #### [facility] ([id number]) [address] [place] [address], [address] [place], [place] [address]Gxlkkryzzw A1con 29-12-3719Dxlylgp glucose Estimated from glycated hemoglobin (Bld) [Mass/Vol]120 mg/dLOhioHealth Grady Memorial HospitalHbA1c (Bld) [Mass fraction]5.8 %High4.4 - 5.6 %[facility] HospitalInterpretation and review of laboratory resultsAbnoWellSpan Surgery & Rehabilitation HospitalHeparin unfractionated Chromogenic method Qn (PPP)on 05-08-2024 Interpretation and review of laboratory resultsAbAurora Medical CenterIonized magnesiumon 91-03-6521Bokduatvp Ionized ISE (Bld) [Moles/Vol]0.7 mmol/L0.45 - 0.74 mmol/LPrSelect Medical Specialty Hospital [facility] [place] SystemLipid 1996 panelon 38-77-4306Fnzbgxtxqsp [Mass/Vol]197 mg/dL150 - 200 mg/dLOhioHealth Grady Memorial Hospital Cholesterol in HDL [Mass/Vol]45 mg/dL39 - PINF mg/dLOhioHealth Grady Memorial Hospital Cholesterol in LDL [Mass/Vol]123 mg/dLNINF - 130 mg/dLOhioHealth Grady Memorial Hospital Cholesterol in VLDL [Mass/Vol]29 mg/dL0 - 30 mg/dLOhioHealth Grady Memorial Hospital Cholesterol.total/Cholesterol in HDL [Mass ratio]4.4 {ratio}1.0 - 5.0OhioHealth Grady Memorial HospitalTriglyceride [Mass/Vol]145 mg/dL27 - 150 mg/dLOhioHealth Grady Memorial HospitalCholesterol [Mass/Vol]197 mg/jQIpowfk742-284UrnLemqkzMercy Health – [facility] Hospital Comment on above:Performed By: #### KEVIN BENOIT, 97931-0 #### [facility] ([id number]) [address] [facility], [address] [place], [place] [address]Xsrllfgctwd in HDL [Mass/Vol]45 mg/dLNormal>39Mer[facility] HospitalComment on above:Result Comment: HDL <40 mg/dL - High Risk HDL > or = 40mg/dL- Desirable HDL >60 mg/dL - Negative Risk Performed By: #### KEVIN BENOIT, 89001-3 #### [facility] ([id number]) [address], [address] [place], [place] [address]Iihcpxhzfxd in LDL [Mass/Vol]123 mg/dLNormal<130ProPremier Health Miami Valley HospitalComment on above:Result Comment: LDL <100 mg/dL - Desirable LDL >160 mg/dL - High Risk Performed By: #### KEVIN BENOIT, 74506-4 #### [facility] ([id number]) [address], [address] [place], [place] [address]Ucwkwsncakv in VLDL [Mass/Vol]29 mg/dLNormal0-30ProEast Liverpool City Hospital HospitalComment on above:Performed By: #### KEVIN BENOIT, 47128-3 #### [facility] ([id number]) [address], [address] [place], [place] [address]PPFMSKMWDRK:HDL4.0Zlvohh9.0-5.0ProEast Liverpool City Hospital HospitalComment on above:Performed By: #### KEVIN BENOIT, 83799-6 #### [facility] ([id number]) [address], [address] [place], [place] [address]Jwvflnogvgwj [Mass/Vol]145 mg/rETffnsd47-519PwlNajrve [place] HospitalComment on above:Performed By: #### KEVIN BENOIT, 33141-8 #### [facility] ([id number]) [address], [address] [place], [place] [address]CGUOASORDuo 10-08-5482Rrzjvggom [Mass/Vol]1.8 mg/dLNormal1.8-2.6 ProMGenesis Hospital HospitalComment on above:Performed By: #### KEVIN BENOIT, 83108-9 #### [facility] ([id number]) [address], [address] [place], [place] [address]Snxetnoubbt 34-88-0257Olzjyixla [Mass/Vol]1.8 mg/dL1.8 - 2.6 mg/dLProUniversity Hospitals Portage Medical Center SystemMagnesium Ionized ISE (Bld) [Moles/Vol]on 05-08-2024 [facility] SystemMagnesium [Moles/Vol]0.70 mmol/LNormal0.45-0.74[facility] HospitalComment on above:Result Comment: NEW REFERENCE RANGEPerformed By: #### KEVIN BENOIT, 29801-1 #### [facility] ([id number]) [address], [address] [place], [place] [address]Pk Panel Informationon 25-03-8626KpdLjoecuTrumbull Regional Medical CenteredicLima City HospitalProMediBlanchard Valley Health System [facility] SystemOsmolalityon 60-22-2940Xgyufvmocg [Osmolality]256 mosm/kgLowAshtabula County Medical Center SystemOsmolality (U) [Osmolality]on 74-20-1119NmiIpvlwj Health SystemURINE ARMUFTMKVF572 mOsm/kg R2Unhyfp380-6700 [facility] HospitalComment on above:Performed By: #### KEVIN BENOIT, 77304-7 #### [facility] ([id number]) [address], [address] [place], [place] [address]Ckgkacfjlh [Osmolality]on 64-20-7855Zckkixezsnjcit and review of laboratory resultsAbnoWellSpan Surgery & Rehabilitation Hospital DSRLTBAGEF496 mOsm/kg O7Evb362-243JplQyuksfMercy Health – The Jewish HospitalComment on above: Performed By: #### KEVIN BENOIT, 00326-1 #### [facility] ([id number]) [address], [address] [place], [place] [address]Mmsviullfj, urineon 54-40-8357Xnvofojpwl (U) [Osmolality]353 mosm/kgAshtabula County Medical Center SystemSodiumon 25-08-6351Wwxyci [Moles/Vol]126 mmol/LLow 134 - 146 mmol/LProMedica Health SystemSodium (U) [Moles/Vol]on 05-08-2024 [facility] HospitalURINE SODIUM,RANDOM<10NoalMercy Health – The Jewish Hospital Comment on above:Performed By: #### KEVIN BENOIT, 67426-4 #### [facility] ([id number]) [address], [address] [place], [place] [address]Ultofb [Moles/Vol]on 44-49-8691Bkokdzhyaskmsr and review of laboratory resultsAbnormEncompass Health Rehabilitation Hospital of Harmarvilleodium, urine, randomon 50-32-2475Byvftq (U) [Moles/Vol]mmol/Lmmol/[facility] HospitaloMedUniversity Hospitals Elyria Medical Center SystemTHYROID PROFILEon 15-55-3236Zymy T4 [Mass/Vol]1.07 ng/dLNormal0.61-1.60 [facility] HospitalComment on above:Performed By: #### CBCA, PINR, 67650-0 #### [facility] ([id number]) [address] [place] [address], [address] [place], [place] [address]YUU1.49 uIU/mLNormal0.49-4.67[facility] HospitalComment on above:Performed By: #### CBCA, PINR, 58035-7 #### [facility] ([id number]) [address] [place] [address], [address] [place], [place] [address]Zoyztta profile includes TSH FT4on 52-05-6943Cswx T4 [Mass/Vol] 1.07 ng/dL0.61 - 1.60 ng/dLOhioHealth Grady Memorial HospitalTS Qn1.49 m[IU]/[facility] SystemTroponin I, High Sensitivity 3 Houron 52-49-0717Aawmyvoj I.cardiac High sensitivity method [Mass/Vol]61006 ng/LCritically highNINF - 16 ng/L [facility] HospitalTroponin I.cardiac High sensitivity method [Mass/Vol] 34107 ng/LCritically highNINF - 16 ng/LProMedica Health SystemTroponin I.cardiac High sensitivity method [Mass/Vol]98084 ng/LCritically highNINF - 16 ng/L [facility] HospitalTroponin I.cardiac High sensitivity method [Mass/Vol]on 07-00-0791Zbevnelkuazrna and review of laboratory resultsAbnormTitusville Area Hospital3 HOUR TROP I, HIGH NCPYVFDEIQE28011 ng/L Critically high<16[facility] HospitalComment on above:Result Comment: Elevations of hs-Troponin may be due to causes other than myocardial ischemia. Recommend serial hs-Troponin testing be performed. For the initial evaluation and management of chest pain patients, refer to the algorithms linked below. Emergency Patient: [email or web address] Inpatient: [email or web address]=[email or web address] By: #### CBCA, PINR, 89336-8 #### [facility] ([id number]) [address] [facility], [address] [place], [place] [address]Jxxxapqprsatqe and review of laboratory resultsAbNorthern Westchester Hospital3 HOUR TROP I, HIGH ZDKPTULXNLF94331 ng/LCritically high<16 [facility] HospitalComment on above:Result Comment: Elevations of hs-Troponin may be due to causes other than myocardial ischemia. Recommend serial hs-Troponin testing be performed. For the initial evaluation and management of chest pain patients, refer to the algorithms linked below. Emergency Patient: [email or web address] Inpatient: [email or web address]=[email or web address] By: #### CBCA, PINR, 18773-1 #### [facility] ([id number]) [address], [address] [place], [place] [address]Lpdjtlucgrbaxn and review of laboratory resultsAbEncompass Health Rehabilitation Hospital of Harmarville3 HOUR TROP I, HIGH SIXKDDPFSYN60737 ng/L Critically high<16[facility] HospitalComchelsea hospital on above:Result Comment: Elevations of hs-Troponin may be due to causes other than myocardial ischemia. Recommend serial hs-Troponin testing be performed. For the initial evaluation and management of chest pain patients, refer to the algorithms linked below. Emergency Patient: [email or web address]=acaea Inpatient: [email or web address]=[email or web address] By: #### KEVIN BENOIT, 29503-4 #### [facility] ([id number]) [address], [address] [place], [place] [address]CAOB ACIDon 90-33-0317Ytizk [Mass/Vol]3.7 mg/dLNormal2.6-7.2 [facility] HospitalComment on above:Performed By: #### KEVIN BENOIT, 54851-7 #### [facility] ([id number]) [address], [address] [place], [place] [address]Lwgi acidon 96-67-0828Ugsou [Mass/Vol]3.7 mg/dL2.6 - 7.2 mg/dL [facility] Memorial HospitalVitamin D 25 hydroxyon 93-46-0884Mcungwe D+Metabolites [Mass/Vol]7.6 ng/mLLow30 - 100 ng/mLOhioHealth Grady Memorial HospitalVitamin D+Metabolites [Mass/Vol]on 00-54-8495Fxpvpzgzyiabpe and review of laboratory resultsAbnormal [facility] Hershey Medical CenterVITAMIN D 25 HYD TOT7.6 ng/mLLow 30-100[facility] HospitalComment on above:Result Comment: Vitamin D status 25 [place] Vitamin D Deficiency <20 ng/mL Insufficiency 20-29 ng/mL Sufficiency 30-100 ng/mL Toxicity >100 ng/mL NOTE: A pediatric reference range has not been established by the day care attendant of this kit. The [place] [employer] recommends a Vitamin D level of = or >20ng/mL in infants and children.Performed By: #### ARANZAA, PINR, 95732-6 #### [facility] ([id number]) [address] [facility] [address], [address] [place], [place] [address]SFBRen 86-12-2162aYDM Coag (PPP) [Time]124 sCritically high [facility] SystemARTERIAL CODEon 40-03-7805RMNNS'S TESTPassNormalProPremier Health Miami Valley HospitalComment on above:Performed By: #### ICODE #### [facility] ([id number]) [address] [place], [place] [address]SWFE,DEFICIT2.0 MMOL/LNormal0.0-2.0[facility] Comment on above:Performed By: #### ICODE #### [facility] ([id number]) [address] [place], [place] [address]Rwcg hejjerhjgan32.6 [degF]Dtagyt23.0[facility] Comment on above:Performed By: #### ICODE #### [facility] ([id number]) [address] [place], [place] [address]Bqrarhh [Mass/Vol]151 mg/qZNnpa40-86OuwMqebffMercy Health – The Jewish Hospital Comment on above:Performed By: #### ICODE #### [facility] ([id number]) [address] [place], [place] [address]LHV9 (Bld) [Moles/Vol]21.3 mmol/VFee94-48JhhNquhknMercy Health – The Jewish HospitalComment on above:Performed By: #### ICODE #### [facility] ([id number]) [address] [place], [place] [address]Xurykyfhej (Bld) [Volume fraction]40 %Qdyube96-12TgrSfggxrPremier Health Miami Valley HospitalComment on above:Performed By: #### ICODE #### [facility] ([id number]) [address] [place], [place] [address]Xnhhnq (Bld) [Partial pressure]79 mm[Hg]Lle82-733YykCocnbr Quiñonez HospitalComment on above:Performed By: #### ICODE #### [facility] ([id number]) [address] [place], [place] [address]Kdcayd saturation in Blood96.0 %Normal>90ProMedica Palmyra HospitalComment on above:Performed By: #### ICODE #### [facility] ([id number]) [address] [place], [place] [address]PQMUOR SOURCENCNormalProMedica Palmyra HospitalComment on above: Performed By: #### ICODE #### [facility] ([id number]) [address] [place], [place] [address]TWJ361.8 OFBQOcc31-45YeoMzpfap [place]ra HospitalComment on above: Performed By: #### ICODE #### [facility] ([id number]) [address] [place], [place] [address]sX (Bld)7.421 [pH]Normal7.350-7.450[facility] Comment on above:Performed By: #### ICODE #### [facility] ([id number]) [address] [place], [place] [address]NFPUOVXI ICA4.5 mg/dLNormal4.5-5.3PKing's Daughters Medical Center [place] Comment on above:Performed By: #### ICODE #### [facility] ([id number]) [address] [place], [place] [address]Orubbskgi [Moles/Vol]3.6 mmol/LNormal3.5-5.0ProWadsworth-Rittman Hospitalca Elyria Memorial HospitalComment on above:Performed By: #### ICODE #### [facility] ([id number]) [address] [place], [place] [address]TAYZOW SITELRadNormalProWadsworth-Rittman Hospitalca [place]myra HospitalComment on above: Performed By: #### ICODE #### [facility] ([id number]) [address] [place], [place] [address]MVRNCU TYPEARTERIALNormalProMedica Palmyra HospitalComment on above:Performed By: #### ICODE #### [facility] ([id number]) [address] [place], [place] [address]Tfwmmy [Moles/Vol]117 mmol/LCritically ken347-051TvqSfhyuo [facility] HospitalComment on above:Performed By: #### ICODE #### [facility] ([id number]) [address] [place], [place] [address]AYP AND AUTO DIFFon 34-67-9326RQVDIQUM BASOPHIL0.0 X10E9/LNormal 0.0-0.2ProMedica Palmyra HospitalComment on above:Performed By: #### CBCDavid PINR, 95889-8 #### [facility] ([id number]) [address], [address] [place], [place] [address]YRTFNIDE YAXPMPVOSS50.9 X10E9/LHigh1.5-6.6ProWadsworth-Rittman Hospitalca [place]myra HospitalComment on above:Performed By: #### CBCDavid PINR, 54867-8 #### [facility] ([id number]) [address], [address] [place], [place] [address]Uadnyigtt/100 WBC (Bld)0.2 %NormalProEast Liverpool City Hospital Hospital Comment on above:Performed By: #### CBCA, PINR, 35236-6 #### [facility] ([id number]) [address], [address] [place], [place] [address]Lgzvkudjsoy (Bld) [#/Vol]0.0 10*3/uLNormal0.0-0.4ProMedica Palmyra HospitalComment on above:Performed By: #### CBCA, PINR, 77385-2 #### [facility] ([id number]) [address], [address] [place], [place] [address]Egewfhpadsd/100 WBC (Bld)0.0 %NormalMercy Health – The Jewish Hospital Comment on above:Performed By: #### CBCDavid, PINR, 88751-3 #### [facility] ([id number]) [address], [address] [place], [place] [address]Qcmiwtnykmm distribution width (RBC) [Ratio]12.8 %Normal 11.5-15.0ProPremier Health Miami Valley HospitalComment on above:Performed By: #### CBCA, PINR, 49922-9 #### [facility] ([id number]) [address], [address] [place], [place] [address]Zdjpaimbaf (Bld) [Volume fraction]37.8 %Zuvyei32-43ZmsQbjebp [place] HospitalComment on above:Performed By: #### CBCA, PINR, 17726-0 #### [facility] ([id number]) [address], [address] [place], [place] [address]Rdiulmzsgp (Bld) [Mass/Vol]13.3 g/iTQrzrlu23.7-15.5PAshtabula County Medical Center HospitalComment on above:Performed By: #### CBCDavid, PINR, 42243-0 #### [facility] ([id number]) [address], [address] [place], [place] [address]Rililmjkqxc (Bld) [#/Vol]1.4 10*3/uLNormal1.0-3.5PAshtabula County Medical Center HospitalComment on above:Performed By: #### CBCA, PINR, 50322-7 #### [facility] ([id number]) [address], [address] [place], [place] [address]Byzldrqhmtz/100 WBC (Bld)8.1 %NormalMercy Health – The Jewish Hospital Comment on above:Performed By: #### CBCA, PINR, 92679-0 #### [facility] ([id number]) [address], [address] [place], [place] [address]FCU (RBC) [Entitic mass]33.5 tgQdtzqs18-82TooEgudui Quiñonez HospitalComment on above:Performed By: #### CBCA, PINR, 65644-8 #### [facility] ([id number]) [address], [address] [place], [place] [address]TYHG (RBC) [Mass/Vol]35.2 g/qTBgsjul64-21YteRlqsuc Quiñonez HospitalComment on above:Performed By: #### CBCA, PINR, 28310-3 #### [facility] ([id number]) [address], [address] [place], [place] [address]LBS (RBC) [Entitic vol]95 vIZenezz47-956NfiMdmzcb [place] HospitalComment on above:Performed By: #### CBCA, PINR, 64517-3 #### [facility] ([id number]) [address], [address] [place], [place] [address]Yxtygzxyw (Bld) [#/Vol]1.4 10*3/uLHigh0-0.9ProWadsworth-Rittman Hospitalca [place]my[place] HospitalComment on above:Performed By: #### CBCA, PINR, 65478-9 #### [facility] ([id number]) [address], [address] [place], [place] [address]Rayqmnlss/100 WBC (Bld)7.7 %NormalMercy Health – The Jewish Hospital Comment on above:Performed By: #### CBCA, PINR, 88437-1 #### [facility] ([id number]) [address], [address] [place], [place] [address]Jowrdumszop/100 WBC (Bld)84.0 %NormalMercy Health – The Jewish Hospital Comment on above:Performed By: #### CBCA, PINR, 01093-0 #### [facility] ([id number]) [address], [address] [place], [place] [address]Onwaspfi mean volume (Bld) [Entitic vol]8.5 fLNormal7-12 [facility] HospitalComment on above:Performed By: #### KEVIN BENOIT, 41677-7 #### [facility] ([id number]) [address], [address] [place], [place] [address]Dbfsmkttx (Bld) [#/Vol]270 10*3/iQDheiyw064-614QxaVipamh [place] HospitalComment on above:Performed By: #### KEVIN BENOIT, 84994-0 #### [facility] ([id number]) [address], [address] [place] [address]VUF COUNT3.98 X10E12/LNormal3.80-5.20[facility] Comment on above:Performed By: #### KEVIN BENOIT, 58173-6 #### [facility] ([id number]) [address], [address] [place] [address]VSM (Bld) [#/Vol]17.7 10*3/uLHigh4.0-11.0[facility] HospitalComment on above:Performed By: #### KEVIN BENOIT, 09724-7 #### [facility] ([id number]) [address], [address] [address]ZPC auto differentialon 46-47-8590Adgshbwqy (Bld) [#/Vol]0 10*3/uLProMedica Health SystemBasophils/100 WBC (Bld)0.2 %ProMedica Health SystemEosinophils (Bld) [#/Vol]0 10*3/uLProMedica Health SystemEosinophils/100 WBC (Bld)0 %ProMedica Health SystemErythrocyte distribution width (RBC) [Ratio] 12.8 %11.5 - 15.0 %ProMedica Health SystemHematocrit (Bld) [Volume fraction]37.8 %35 - 47 %ProMedica Health SystemHemoglobin (Bld) [Mass/Vol]13.3 g/dL11.7 - 15.5 g/dLOhioHealth Grady Memorial HospitalInterpretation and review of laboratory results AbnormalOhioHealth Grady Memorial HospitalLymphocytes (Bld) [#/Vol]1.4 10*3/uLOhioHealth Grady Memorial HospitalLymphocytes/100 WBC (Bld)8.1 %[facility] Campus Medical CenterH (RBC) [Entitic mass]33.5 pg27 - 34 pgPClermont County HospitalMCHC (RBC) [Mass/Vol]35.2 g/dL32 - 36 g/dLOhioHealth Grady Memorial HospitalMCV (RBC) [Entitic vol]95 fL80 - 100 fL [facility] Memorial HospitalMonocytes (Bld) [#/Vol]1.4 10*3/uLBon Secours St. Francis Medical CenterMonocytes/100 WBC (Bld)7.7 %[facility] Memorial HospitalNeutrophils (Bld) [#/Vol]14.9 10*3/uLBon Secours St. Francis Medical CenterNeutrophils/100 WBC (Bld)84 % [facility] Memorial HospitalPlatelet mean volume (Bld) [Entitic vol]8.5 fL7 - 12 fL [facility] Memorial HospitalPlatelets (Bld) [#/Vol]270 10*3/[facility] RBC (Bld) [#/Vol]3.98 10*6/[facility] HospitalWBC corrected for nucl RBC Auto (Bld) [#/Vol]17.7HighPenn State Health Milton S. Hershey Medical Center COMPREHENSIVE METABOLIC PANELon [id number] [Mass/Vol]3.6 g/dLNormal 3.2-5.3PKing's Daughters Medical Center OhioComment on above:Performed By: #### CMP, 27979- 9, THYR #### [facility] ([id number]) [address] [facility] [address] [place], [place] [address]SER [Catalytic activity/Vol]63 U/KUvasls95-891EjkWvxizwMercy Health – The Jewish HospitalComment on above:Performed By: #### CMP, 11859-5, THYR #### [facility] ([id number]) [address], [address] [place], [place] [address]LOT [Catalytic activity/Vol]31 U/LNormal0-31PAshtabula County Medical Center HospitalComment on above:Performed By: #### RAMOS, , THYR #### [facility] ([id number]) [address], [address] [place], [place] [address]Lmslx gap [Moles/Vol]7 mmol/LNormal5-15ProPremier Health [facility] Comment on above:Performed By: #### RAMOS, , THYR #### [facility] ([id number]) [address], [address] [place], [place] [address]LDS [Catalytic activity/Vol]124 U/LHigh0-41ProEast [facility] HospitalComment on above:Performed By: #### RAMOS, , THYR #### [facility] ([id number]) [address], [address] [place], [place] [address]Syyqmfnnu [Mass/Vol]0.8 mg/dLNormal0.3-1.2PAshtabula County Medical Center HospitalComment on above:Performed By: #### RAMOS, , THYR #### [facility] ([id number]) [address], [address] [place], [place] [address]Lfizxfn [Mass/Vol]8.5 mg/dLNormal8.5-10.5PAshtabula County Medical Center HospitalComment on above:Performed By: #### RAMOS, , THYR #### [facility] ([id number]) [address], [address] [place], [place] [address]Gdorgvsk [Moles/Vol]88 mmol/RIul49-162QshQcvsmhPremier Health [facility] Comment on above:Performed By: #### RAMOS, , THYR #### [facility] ([id number]) [address], [address] [place], [place] [address]TZ6 [Moles/Vol]28 mmol/MMteehx21-27OceXdkhidKing's Daughters Medical Center [place] Comment on above:Performed By: #### RAMOS, , THYR #### [facility] ([id number]) [address], [address] [place], [place] [address]Hygxgncubp [Mass/Vol]0.64 mg/dLNormal0.40-1.00ProPremier Health Miami Valley HospitalComment on above:Result Comment: METHOD TRACEABLE TO IDMS STANDARD Performed By: #### RAMOS, , THYR #### [facility] ([id number]) [address], [facility] [address] [place], [place] [address]gPCL (CKD-EPI) NON-RACE DEPENDENT>90Normal>59ProPremier Health Miami Valley HospitalComment on above:Result Comment: Reported eGFR is based on the CKD-EPI 2020 equation that does not use a race coefficient.Performed By: #### RAMOS, , THYR #### [facility] ([id number]) [address], [address] [place], [place] [address]Wpediit [Mass/Vol]124 mg/fWNyet20-89TniMcglnaMercy Health – The Jewish Hospital Comment on above:Performed By: #### RAMOS, , THYR #### [facility] ([id number]) [address] [address] [place], [place] [address]Omnbostxb [Moles/Vol]3.9 mmol/LNormal3.5-5.0Mer[facility] – The Jewish HospitalComment on above:Performed By: #### RAMOS, , THYR #### [facility] ([id number]) [address], [address] [place], [place] [address]Xsgpgwz [Mass/Vol]6.3 g/dLNormal6.0-8.0[facility] Comment on above:Performed By: #### RAMOS, , THYR #### [facility] ([id number]) [address] [place], [place] [address]Xargbj [Moles/Vol]123 mmol/EDvw897-091VimQtjaceMercy Health – The Jewish Hospital Comment on above:Performed By: #### CMP, 45265-6, THYR #### [facility] ([id number]) [address], [address] [place], [place] [address]Lfjm nitrogen [Mass/Vol]12 mg/dLNormal5-27ProPremier Health Miami Valley HospitalComment on above:Performed By: #### CMP, 98432-8, THYR #### [facility] ([id number]) [address], [address] [place], [place] [address]YR BRAIN WO CONTon 29-10-7351GV BRAIN WO CONTCT BRAIN WO CONT STUDY: CT HEAD WITHOUT [...] by Nnamdi Amaro MD on 05/07/2024 2:42 PMNormalCleveland Clinic Euclid HospitalCT CERVICAL SPINE WO CONTon 00-28-1190MD CERVICAL SPINE WO CONTCT CERVICAL SPINE WO CONT CT CERVICAL SPINE [...] degenerative changes without significant spinal stenosis. Visualized lungapices are clear. IMPRESSION: 1. No acute traumatic injury of the cervical spine. If there is concern for ligamentous or cord injury MRI could be helpful in further evaluation. All CT scans at this facility use dose modulation, iterative reconstruction, and/or weight based dosing when appropriate to reduce radiation dose to as low as reasonably achievable. Finalized by Maximilian Link MD on 05/07/2024 2:45 PMNormalCleveland Clinic Euclid Hospital Cardiac Invasiveon 26-90-8944OyaQwlmys Health SystemXPEROhioHealth Grady Memorial Hospital Radiology Study observation (narrative)[facility] HospitalCardiac echo study Procedureon 05-89-5465Msugfpdti Study observation (narrative)[facility] HospitalComprehensive metabolic panelon 25-57-7043Dkhsvjz [Mass/Vol]3.6 g/dL3.2 - 5.3 g/dLProUniversity [facility] SystemALP [Catalytic activity/Vol]63 U/L39 - 130 U/L [facility] HospitalALT No additional P-5'-P [Catalytic activity/Vol]31 U/L0 - 31 U/LPrColorado Mental Health Institute at Pueblo Health SystemAnion gap [Moles/Vol]7 mmol/L5 - 15 mmol/L [facility] SystemAST [Catalytic activity/Vol]124 U/LHigh0 - 41 U/L [facility] SystemBilirubin [Mass/Vol]0.8 mg/dL0.3 - 1.2 mg/dLAshtabula County Medical Center SystemCalcium [Mass/Vol]8.5 mg/dL8.5 - 10.5 mg/dLAshtabula County Medical Center System Chloride [Moles/Vol]88 mmol/LLow98 - 109 mmol/LPrColorado Mental Health Institute [facility] Health SystemCO2 [Moles/Vol]28 mmol/L22 - 32 mmol/LPrColorado Mental Health Institute [facility] Health SystemCreatinine [Mass/Vol] 0.64 mg/dL0.40 - 1.00 mg/dLAshtabula County Medical Center SystemeGFR (CKD-EPI)non-race dependent- PINTriHealth Bethesda North Hospital SystemGlucose [Mass/Vol]124 mg/bHDync91 - 99 mg/dLAshtabula County Medical Center SystemInterpretation and review of laboratory results AbnormalAshtabula County Medical Center SystemPotassium [Moles/Vol]3.9 mmol/L3.5 - 5.0 mmol/L [facility] HospitalProtein [Mass/Vol]6.3 g/dL6.0 - 8.0 g/dLSampson Regional Medical Centerodium [Moles/Vol]123 mmol/HKjl524 - 146 mmol/LProMedica Formerly Oakwood HospitalUrea nitrogen [Mass/Vol]12 mg/dL5 - 27 mg/dLOhioHealth Grady Memorial HospitalECG 12 leadon 87-04-0834YJPJWVPYMAKQPBVvmAqqnus Health SystemEKG 12 leadon 05-07-2024 TRACEMASTJohnston Memorial HospitalGlucose Glucometer (BldC) [Mass/Vol]on 44-34-9072Xtoeaxw [Mass/Vol]159 mg/oHTgic46 - 99 mg/dLOhioHealth Grady Memorial Hospital Interpretation and review of laboratory resultsAbnormalWellSpan Surgery & Rehabilitation HospitalGlucose [Mass/Vol]159 mg/kWOdbt99-50LymOawenxMercy Health – The Jewish HospitalHeparin unfractionated Chromogenic method Qn (PPP)on 80-05-5715HRUE XA UFH<0.04Low0.30-0.70Mercy Health – The Jewish HospitalComment on above:Result Comment: Optimal time for testing is 6 hrs post dosage This test is specific for monitoring patients on UFH, and is not recommended for use with other Anti-Xa medications.Performed By: #### 3274-8, 2951-2 #### [facility] ([id number]) [address] [facility], [address] [place], [place] [address]GUBXNLJRBdr 20-39-7428Wtlstqinl [Mass/Vol]1.8 mg/dLNormal1.8-2.6 [facility] HospitalComment on above:Performed By: #### CMP, 53982-1, THYR #### [facility] ([id number]) [address] [facility], [address] [place], [place] [address]Aigyvrrgywq 49-25-0055Altvhmwym [Mass/Vol]1.8 mg/dL1.8 - 2.6 mg/dLOhioHealth Grady Memorial HospitalNo Panel Informationon 23-57-0409BwlRfvbhz Health SystemInterpretation and review of laboratory resultsAbnormalProUniversity Hospitals [facility] SystemProUniversity [facility] SystemPOCT ABG with NA, K, GLU, ICA and HCTon 05-07-2024 Arterial patency Wrist artery --pre arterial puncturePassAshtabula County Medical Center System Base deficit (Bld) [Moles/Vol]2 mmol/LPrNortheast Missouri Rural Health Networkica Health SystemCalcium.ionized (Bld) [Moles/Vol]4.5 mg/dL4.5 - 5.3 mg/dLAshtabula County Medical Center SystemCO2 (Bld) [Partial pressure]32.8 mm[Hg]LowAshtabula County Medical Center SystemGlucose [Mass/Vol]151 mg/yRSjwf13 - 99 mg/dLAshtabula County Medical Center SystemHCO3 (Bld) [Moles/Vol]21.3 mmol/L LowAshtabula County Medical Center SystemHematocrit (Bld) [Volume fraction]40 %35 - 47 % [facility] SystemInterpretation and review of laboratory resultsAbnormal [facility] SystemOxygen (Bld) [Partial pressure]79 mm[Hg]LowMercy Health West Hospital Health SystemOxygen therapy source and amount [CARE]NCProUniversity Hospitals Portage Medical Center SystempH (Bld)7.421 [pH]7.350 - 7.450[facility] Health SystemPotassium [Moles/Vol]3.6 mmol/L3.5 - 5.0 mmol/LProMedica Health SystemSodium [Moles/Vol]117 mmol/L Critically aqc262 - 146 mmol/LProMedica Health SystemSpecimen site NarrativeLRad [facility] SystemSpecimen type Nom (Spec)ARTERIALProUniversity Hospitals [facility] System [facility] Health SystemPROTIME AND INRon 14-78-6324BXJ Coag (PPP) [Relative time]1.2 {INR}Normal0.9-1.2PKing's Daughters Medical Center OhioComment on above:Performed By: #### KAYCEE, PINR, 39279-0 #### [facility] ([id number]) [address], [address] [place], [place] [address]XC Coag (PPP) [Time]13.4 sHigh9.8-13.2PKing's Daughters Medical Center [place] Comment on above:Performed By: #### KAYCEE, PINR, 84738-4 #### [facility] ([id number]) [address], [address] [place], [place] [address]Yyykzpt & INRon 65-62-7593OUM Coag (PPP) [Relative time]1.2 {INR}ProMCoshocton Regional Medical CenterPT Coag (PPP) [Time]13.4 [facility] Hospital - ErieODIUMon 64-56-1064Cfzzun [Moles/Vol]126 mmol/SGvx372-136IfnYhjltsPremier Health Miami Valley HospitalComment on above:Performed By: #### KAYCEE, PINR, 97453-7 #### [facility] ([id number]) [address], [address] [place], [place] [address]BDOIIKA PROFILEon 36-78-5890Orex T4 [Mass/Vol]0.97 ng/dLNormal 0.61-1.60ProPremier Health Miami Valley HospitalComment on above:Performed By: #### RAMOS, 68155-0, THYR #### [facility] ([id number]) [address] [facility], [address] [place], [place] [address]SXT1.65 uIU/mLNormal0.49-4.67ProPremier Health Miami Valley HospitalComment on above:Performed By: #### CMP, 22108-9, THYR #### [facility] ([id number]) [address], [address] [place], [place] [address]Pxgydsz profile includes TSH FT4on 03-90-3729Ttxn T4 [Mass/Vol] 0.97 ng/dL0.61 - 1.60 ng/dLOhioHealth Grady Memorial HospitalTSH Qn0.65 m[IU]/LProMedProvidence HospitalProWilson HealthTroponin I, High Sensitivityon 05-07-2024 Troponin I.cardiac High sensitivity method [Mass/Vol]41327 ng/LCritically high NINF - 16 ng/LProMedica [facility] SystemTroponin I.cardiac High sensitivity method [Mass/Vol]on 05-60-7454Xstyxfylsilriq and review of laboratory resultsAbnormal [facility] Medical CenterTROPONIN I, HIGH OQZGEKWERLS33173 ng/LCritically high<16ProPremier Health Miami Valley HospitalComment on above:Result Comment: Elevations of hs-Troponin may be due to causes other than myocardial ischemia. Recommend serial hs-Troponin testing be performed. For the initial evaluation and management of chest pain patients, refer to the algorithms linked below. Emergency Patient: [email or web address] Inpatient: [email or web address] By: #### 48441-9 #### [facility] ([id number]) [address], [address] [place], [place] [address]OF CHEST 1 VWon 21-60-6038VE CHEST 1 VWXR CHEST 1 VW Single view chest XR CHEST 1 VW History: dizziness Comparison: June 30, 2022 Impression: * No consolidation or pleural fluid. No acute findings. Finalized by Nnamdi Amaro MD on 05/07/2024 2:46 PMNormalCleveland Clinic Euclid HospitalXR PELVIS 1 OR 2 VWSon 46-02-4092YY PELVIS 1 OR 2 VWSXR PELVIS 1 OR 2 VWS XR PELVIS 1 OR 2 VWS fall Pelvic trauma Findings: There is grossly no fracture or destructive lesion. Impression: * No acute findings. * Consider MRI if you suspect occult process. Finalized by Nnamdi Amaro MD on 05/07/2024 2:43 PMNormalCleveland Clinic Euclid HospitalaPTT Coag (PPP) [Time]on 91-38-2842wNYM Coag (Bld) [Time]124 sCritically gpkp68-69ObjAxwzxpPremier Health Miami Valley HospitalComment on above:Performed By: #### CBCA, PINR, 03240-7 #### [facility] ([id number]) [address], [address] [place], [place] [address]JYD AND AUTO DIFFon 79-42-2243LMILZPRV BASOPHIL0.1 X10E9/LNormal 0.0-0.2PChildren's Hospital of ColumbusComment on above:Performed By: #### CBCA, CMP, FEPR, 80804-4, TSHR, 2276-4, HA1C, 4-8, 2131-10 #### [facility] ([id number]) [address], [address] [place] [address] #### 75692-8 #### [facility] ([id number]) [address] [place] [address]KLTOQWBE NEUTROPHIL4.2 X10E9/LNormal1.5-6.6ProPermian Regional Medical CenterComment on above:Performed By: #### CBCA, CMP, FEPR, 64861-1, TSHR, 2276-4, HA1C, 2283-8, 2131-10 #### [facility] ([id number]) [address], [address] [place] [address] #### 46080-4 #### [facility] ([id number]) [address] [place] [address]Lozrliagn/100 WBC (Bld)1.3 %NormalProPermian Regional Medical Center Comment on above:Performed By: #### CBCA, CMP, FEPR, 81646-8, TSHR, 2276-4, HA1C, 2283-, 2131-10 #### [facility] ([id number]) [address] [facility], [address] [place] [address] #### 76366-1 #### [facility] ([id number]) [address] [place] [address]Tmxblyccgco (Bld) [#/Vol]0.1 10*3/uLNormal0.0-0.4ProPermian Regional Medical CenterComment on above:Performed By: #### CBCA, CMP, FEPR, 67310-3, TSHR, 2276-4, HA1C, 2284-8, 2131-10 #### [facility] ([id number]) [address], [address] [place] [address] #### 29698-6 #### [facility] ([id number]) [address] [place] [address]Lspnrjkpvpw/100 WBC (Bld)1.8 %NormalCleveland Clinic Euclid Hospital Comment on above:Performed By: #### CBCA, CMP, FEPR, 24389-2, TSHR, 2276-4, HA1C, 2283-8, 2131-10 #### [facility] ([id number]) [address] [address] #### 98788-2 #### [facility] ([id number]) [address] [place] [address]Hovzhjgocau distribution width (RBC) [Ratio]13.6 %Normal 11.5-15.0ProPermian Regional Medical CenterComment on above:Performed By: #### CBCA, CMP, FEPR, 49300-4, TSHR, 2276-4, HA1C, 2283-, 2131-10 #### [facility] ([id number]) [address], [address] [address] #### 94832-5 #### [facility] ([id number]) [address] [place] [address]Pwxqjevcub (Bld) [Volume fraction]40.1 %Fhygwd76-02OfhFdvobtPermian Regional Medical CenterComment on above:Performed By: #### CBCA, CMP, FEPR, 78188-7, TSHR, 2276-4, HA1C, 4-8, 2131-10 #### [facility] ([id number]) [address], [address] [place] [address] #### 30378-1 #### [facility] ([id number]) [address] [place] [address]Qodvgsisrt (Bld) [Mass/Vol]14.1 g/bCAfodan33.7-15.5PChildren's Hospital of ColumbusComment on above:Performed By: #### CBCA, CMP, FEPR, 81569-4, TSHR, 2276-4, HA1C, 2284-8, 2131-10 #### [facility] ([id number]) [address] [facility], [address] [place] [address] #### 94138-1 #### [facility] ([id number]) [address] [place] [address]Mhwfeqibuxx (Bld) [#/Vol]1.4 10*3/uLNormal1.0-3.5PChildren's Hospital of ColumbusComment on above:Performed By: #### CBCA, CMP, FEPR, 91318-9, TSHR, 2276-4, HA1C, 2283-8, 2131-10 #### [facility] ([id number]) [address] [facility] [facility] [address] [place] [address] #### 91221-1 #### [facility] ([id number]) [address] [place] [address] 82832Zrfdolballi/100 WBC (Bld)23.1 %NormalSt. Anthony's Hospitalca [facility] Comment on above:Performed By: #### CBCA, CMP, FEPR, 15070-6, TSHR, 2276-4, HA1C, 2284-8, 2131-10 #### [facility] ([id number]) [address] [facility], [address] [place] [address] #### 02408-7 #### [facility] ([id number]) [address] [place] [address]YKM (RBC) [Entitic mass]34.6 apZycj92-13PjbEyizcyPermian Regional Medical CenterComment on above:Performed By: #### CBCA, CMP, FEPR, 38191-1, TSHR, 2276-4, HA1C, 4-8, 2131-10 #### [facility] ([id number]) [address], [address] [place] [address] #### 80340-7 #### [facility] ([id number]) [address] [place] [address]YKJI (RBC) [Mass/Vol]35.2 g/iZXurxzh64-62OasVtdlklPermian Regional Medical CenterComment on above:Performed By: #### CBCA, CMP, FEPR, 75279-9, TSHR, 2276-4, HA1C, 2283-, 2131-10 #### [facility] ([id number]) [address], [address] [place] [address] #### 26111-2 #### [facility] ([id number]) [address] [place] [address] 74050RXX (RBC) [Entitic vol]98 uBKkjuxc28-212KymEezbax Fremont HospitalComment on above:Performed By: #### CBCA, CMP, FEPR, 60823-7, TSHR, 2276-4, HA1C, 2283-, 2131-10 #### [facility] ([id number]) [address], [address] [place] [address] #### 53110-9 #### [facility] ([id number]) [address] [place] [address] 26716Brdvzrucd (Bld) [#/Vol]0.4 10*3/uLNormal0-0.9ProPermian Regional Medical CenterComment on above:Performed By: #### CBCA, CMP, FEPR, 59961-8, TSHR, 2276-4, HA1C, 2283-8, 2131-10 #### [facility] ([id number]) [address], [address] [place] [address] #### 46468-0 #### [facility] ([id number]) [address] [place] [address] 82654Hhvhrhalc/100 WBC (Bld)6.7 %[facility] Comment on above:Performed By: #### CBCA, CMP, FEPR, 37420-9, TSHR, 2276-4, HA1C, 2283-8, 2131-10 #### [facility] ([id number]) [address], [address] [place] [address] #### 81012-6 #### [facility] ([id number]) [address] [place] [address] 91487Vtyvkzfyvqc/100 WBC (Bld)67.1 %[facility] Comment on above:Performed By: #### CBCA, CMP, FEPR, 87297-7, TSHR, 2276-4, HA1C, 2283-, 2131-10 #### [facility] ([id number]) [address], [address] [place] [address] #### 87263-9 #### [facility] ([id number]) [address] [place] [address] 38695Xeckwxou mean volume (Bld) [Entitic vol]8.2 fLNormal7-12 Pro[facility] Downey Regional Medical CenterComment on above:Performed By: #### CBCA, CMP, FEPR, 27266-9, TSHR, 2276-4, HA1C, 2283-, 2131-10 #### [facility] ([id number]) [address], [address] [place] [address] #### 99881-0 #### [facility] ([id number]) [address] [place] [address] 73986Xxybmfpnn (Bld) [#/Vol]266 10*3/oLArbhyd740-968KnfSqdjaa Fremont HospitalComment on above:Performed By: #### CBCA, CMP, FEPR, 84504-1, TSHR, 2276-4, HA1C, 2284-8, 2131-9 #### [facility] ([id number]) [address] [place] [address], [address] [place] [address] #### 94153-0 #### [facility] ([id number]) [address] [place] [address] 71230QMS COUNT4.08 X10E12/LNormal3.80-5.20[facility] Comment on above:Performed By: #### CBCA, CMP, FEPR, 97803-4, TSHR, 2276-4, HA1C, 4-8, 2131-10 #### [facility] ([id number]) [address] [facility], [address] [place] [address] #### 40149-2 #### [facility] ([id number]) [address] [place] [address]35[address]MAO (Bld) [#/Vol]6.2 10*3/uLNormal4.0-11.0ProPermian Regional Medical CenterComment on above:Performed By: #### CBCA, CMP, FEPR, 30019-7, TSHR, 2276-4, HA1C, 2284-8, 2131-9 #### [facility] ([id number]) [address] [place] [address], [address] [place] [address] #### 73044-3 #### [facility] ([id number]) [address] [place] [address] 14141GOHNRRDYUJRTQ METABOLIC PANELon 13-89-3982Mqxirnj [Mass/Vol]4.2 g/dLNormal3.2-5.3PChildren's Hospital of ColumbusComment on above:Performed By: #### CBCA, CMP, FEPR, 11174-7, TSHR, 2276-4, HA1C, 2283-8, 2131-10 #### [facility] ([id number]) [address], [address] [place] [address] #### 30488-5 #### [facility] ([id number]) [address] [place] [address] 11165FCF [Catalytic activity/Vol]73 U/KNgdqqg22-059QqfJlkwbqPermian Regional Medical CenterComment on above:Performed By: #### CBCA, CMP, FEPR, 15199-6, TSHR, 2276-4, HA1C, 2283-09, 2131-10 #### [facility] ([id number]) [address] [facility], [address] [place] [address] #### 62450-3 #### [facility] ([id number]) [address] [place] [address] 59[address]KIN [Catalytic activity/Vol]8 U/LNormal0-31PChildren's Hospital of ColumbusComment on above:Performed By: #### CBCA, CMP, FEPR, 53310-6, TSHR, 2276-4, HA1C, 2283-09, 2131-10 #### [facility] ([id number]) [address], [address] [place] [address] #### 65600-4 #### [facility] ([id number]) [address] [place] [address] 13638Uahkp gap [Moles/Vol]8 mmol/LNormal5-15ProPermian Regional Medical CenterComment on above:Performed By: #### CBCA, CMP, FEPR, 69048-5, TSHR, 2276-4, HA1C, 2283-09, 2131-10 #### [facility] ([id number]) [address] [facility], [address] [place] [address] #### 77716-2 #### [facility] ([id number]) [address] [place] [address] 59889UHA [Catalytic activity/Vol]16 U/LNormal0-41ProMedica [facility]ney Regional Medical CenterComment on above:Performed By: #### CBCA, CMP, FEPR, 31938-1, TSHR, 2276-4, HA1C, 2283-8, 2131-10 #### [facility] ([id number]) [address] [facility], [address] [place] [address] #### 51512-5 #### [facility] ([id number]) [address] [place] [address] 98247Rxexlielq [Mass/Vol]0.3 mg/dLNormal0.3-1.2ProMedJohn F. Kennedy Memorial HospitalComment on above:Performed By: #### CBCA, CMP, FEPR, 55857-3, TSHR, 2276-4, HA1C, 2283-09, 2131-10 #### [facility] ([id number]) [address] [facility], [address] [place] [address] #### 03778-9 #### [facility] ([id number]) [address] [place] [address] 85311Nckpmgp [Mass/Vol]9.0 mg/dLNormal8.5-10.5PChildren's Hospital of ColumbusComment on above:Performed By: #### CBCA, CMP, FEPR, 27530-0, TSHR, 2276-4, HA1C, 2283-, 2131-10 #### [facility] ([id number]) [address] [facility], [address] [place] [address] #### 40990-2 #### [facility] ([id number]) [address] [place] [address] [place] [address]Peqdfamg [Moles/Vol]101 mmol/UJscxyv28-192DdiMddgssCleveland Clinic Euclid HospitalComment on above:Performed By: #### CBCA, CMP, FEPR, 35441-9, TSHR, 2276-4, HA1C, 2284-8, 2131-10 #### [facility] ([id number]) [address], [address] [place] [address] #### 65972-1 #### [facility] ([id number]) [address] [place], [place] [address]WQ1 [Moles/Vol]27 mmol/TSfdlei91-92VsiHyzqbeChildren's Hospital of [facility] Comment on above:Performed By: #### CBCA, CMP, FEPR, 61002-9, TSHR, 2276-4, HA1C, 2283-8, 2131-10 #### [facility] ([id number]) [address], [address] [place] [address] #### 20345-6 #### [facility] ([id number]) [address] [place], [place] [address]Dokiecpzfc [Mass/Vol]0.67 mg/dLNormal0.40-1.00C[facility] Clinic Euclid HospitalComment on above:Result Comment: METHOD TRACEABLE TO IDMS STANDARD Performed By: #### CBCA, CMP, FEPR, 15123-6, TSHR, 2276-4, HA1C, 2283-8, 2131-10 #### [facility] ([id number]) [address], [address] [place] [address] #### 27546-0 #### [facility] ([id number]) [address] [place], [place] [address]bINS (CKD-EPI) NON-RACE DEPENDENT>90Normal>59ProPermian Regional Medical CenterComment on above:Result Comment: Reported eGFR is based on the CKD-EPI 2021 equation that does not use a race coefficient.Performed By: #### CBCA, CMP, FEPR, 48029-7, TSHR, 2276-4, HA1C, 2283-09, 2131-10 #### [facility] ([id number]) [address], [address] [place] [address] #### 51975-5 #### [facility] ([id number]) [address] [place] [address]Tujrpid [Mass/Vol]94 mg/uODzgpzv05-07WfqXvekbbPermian Regional Medical Center Comment on above:Performed By: #### CBCA, CMP, FEPR, 79839-1, TSHR, 2276-4, HA1C, 2283-09, 2131-10 #### [facility] ([id number]) [address], [address] [place] [address] #### 08200-1 #### [facility] ([id number]) [address] [place] [address]Ilacmaovz [Moles/Vol]3.8 mmol/LNormal3.5-5.0ProPermian Regional Medical CenterComment on above:Performed By: #### CBCA, CMP, FEPR, 64901-0, TSHR, 2276-4, HA1C, 2283-09, 2131-10 #### [facility] ([id number]) [address], [address] [place] [address] #### 10304-4 #### [facility] ([id number]) [address] [place] [address]Ebgjxvl [Mass/Vol]6.8 g/dLNormal6.0-8.0ProPermian Regional Medical CenterComment on above:Performed By: #### CBCA, CMP, FEPR, 37925-7, TSHR, 2276-4, HA1C, 2283-09, 2131-10 #### [facility] ([id number]) [address], [address] [place] [address] #### 40780-6 #### [facility] ([id number]) [address] [place] [address]Spkmvr [Moles/Vol]136 mmol/HIrcccm392-275UulMyfgda Fremont HospitalComment on above:Performed By: #### CBCA, CMP, FEPR, 19840-1, TSHR, 2276-4, HA1C, 2283-, 2131-10 #### [facility] ([id number]) [address] [facility], [address] [place] [address] #### 25402-6 #### [facility] ([id number]) [address] [place] [address] 72341Cohn nitrogen [Mass/Vol]5 mg/dLNormal5-27ProPermian Regional Medical CenterComment on above:Performed By: #### CBCA, CMP, FEPR, 87586-5, TSHR, 2276-4, HA1C, 2283-09, 2131-10 #### [facility] ([id number]) [address] [facility], [address] [place] [address] #### 07418-3 #### [facility] ([id number]) [address] [place] [address] 17761ITRYKRBUtq 26-74-0499Khyjnrqj [Mass/Vol]17 ng/kIIrkkvk85-613 ProMPromise Hospital of East Los AngelesComment on above:Performed By: #### CBCA, CMP, FEPR, 05250-0, TSHR, 2276-4, HA1C, 2283-, 2131-10 #### [facility] ([id number]) [address], [address] [place] [address] #### 69734-8 #### [facility] ([id number]) [address] [place] [address] 75517Qtnvji [Mass/Vol]on 42-71-7464GABKV ACID4.3 ng/mLLow>5.8 ProMedicSanta Teresita HospitalComment on above:Result Comment: NEW REFERENCE RANGE Performed By: #### CBCA, CMP, FEPR, 66178-6, TSHR, 2276-4, HA1C, 2284-8, 2131-10 #### [facility] ([id number]) [address], [address] [place] [address] #### 53890-6 #### [facility] ([id number]) [address] [place] [address] 11529CIK A1C (GLYCO-HGB)on 05-92-6538Colbjst [Mass/Vol]123 mg/dL NormalProPermian Regional Medical CenterComment on above:Performed By: #### CBCA, CMP, FEPR, 59533-6, TSHR, 2276-4, HA1C, 2283-, 2131-10 #### [facility] ([id number]) [address] [facility], [address] [place] [address] #### 85141-0 #### [facility] ([id number]) [address] [place] [address] 01212JqL0c (Bld) [Mass fraction]5.9 %High4.4-5.6C[facility] Clinic Euclid HospitalComment on above:Result Comment: NOTE ADA Guidelines Result HgbA1c Normal : less than 5.7 % Prediabetes : 5.7 % to 6.4 % Diabetes : > 6.4 % Use with caution in patients with abnormal hemoglobin variants as the half-life of red blood cells and in vivo glycation rates are affected.Performed By: #### CBCA, CMP, FEPR, 62945-7, TSHR, 2276-4, HA1C, 2284- 8, 2131-10 #### [facility] ([id number]) [address], [address] [place] [address] #### 84972-5 #### [facility] ([id number]) [address] [place] [address] 97236IFZC PROFILEon 36-35-2570Rbnx [Mass/Vol]30 ug/bRNpv95-447 [facility]ucl[facility] HospitalComment on above:Performed By: #### CBCA, CMP, FEPR, 45707-1, TSHR, 2276-4, HA1C, 2284-8, 2131-10 #### [facility] ([id number]) [address] [facility], [address] [place] [address] #### 52639-0 #### [facility] ([id number]) [address] [place] [address] 57913WBLR XTDYLRE373 ug/hBRqpmhc961-842FdfWuvaqbCleveland Clinic Euclid Hospital Comment on above:Performed By: #### CBCA, CMP, FEPR, 84941-2, TSHR, 2276-4, HA1C, 2283-8, 2131-10 #### [facility] ([id number]) [address] [facility], [address] [place] [address] #### 30707-0 #### [facility] ([id number]) [address] [place] [address] 09960RRQM SATURATION8 % OZLKFSMHNPCqt03-26QpoTtvakk [facility] Comment on above:Performed By: #### CBCA, CMP, FEPR, 14335-3, TSHR, 2276-4, HA1C, 2283-8, 2131-10 #### [facility] ([id number]) [address], [address] [place] [address] #### 74066-0 #### [facility] ([id number]) [address] [place] [address] 52564Heijr 1996 panelon 01-88-5408Ycpftxunsmi [Mass/Vol]202 mg/dL Sfiy614-721YkfAepphrPermian Regional Medical CenterComment on above:Performed By: #### CBCA, CMP, FEPR, 57031-4, TSHR, 2276-4, HA1C, 2283-8, 2131-10 #### [facility] ([id number]) [address] [facility], [address] [place] [address] #### 38103-4 #### [facility] ([id number]) [address] [place], [place] [address]Ulrqaksmuza in HDL [Mass/Vol]58 mg/dLNormal>39ProPermian Regional Medical CenterComment on above:Result Comment: HDL <40 mg/dL - High Risk HDL > or = 40mg/dL- Desirable HDL >60 mg/dL - Negative Risk Performed By: #### CBCA, CMP, FEPR, 88738-4, TSHR, 2276-4, HA1C, 2283-09, 2131-10 #### [facility] ([id number]) [address] [facility], [address] [place] [address] #### 53132-5 #### [facility] ([id number]) [address] [place], [place] [address]Zwihkrsbone in LDL [Mass/Vol]133 mg/dLHigh<130ProPermian Regional Medical CenterComment on above:Result Comment: LDL <100 mg/dL - Desirable LDL >160 mg/dL - High Risk Performed By: #### CBCA, CMP, FEPR, 09113-0, TSHR, 2276-4, HA1C, 4-8, 2131-10 #### [facility] ([id number]) [address], [address] [place] [address] #### 17044-6 #### [facility] ([id number]) [address] [place] [address] 81516Vivbccxoxrt in VLDL [Mass/Vol]11 mg/dLNormal0-30ProPermian Regional Medical CenterComment on above:Performed By: #### CBCA, CMP, FEPR, 50956-0, TSHR, 2276-4, HA1C, 2284-8, 2131-10 #### [facility] ([id number]) [address] [facility], [address] [place] [address] #### 60546-9 #### [facility] ([id number]) [address] [place] [address] 48353PCGPFLWOWFX:HDL3.7Sokrja5.0-5.0ProPermian Regional Medical Center Comment on above:Performed By: #### CBCA, CMP, FEPR, 64042-2, TSHR, 2276-4, HA1C, 2283-8, 2131-10 #### [facility] ([id number]) [address], [address] [place] [address] #### 09236-3 #### [facility] ([id number]) [address] [place] [address] 95313Jrsnypcqsmld [Mass/Vol]56 mg/eLHqjwim36-033TyvIyeyrf [facility] HospitalComment on above:Performed By: #### CBCA, CMP, FEPR, 52652-3, TSHR, 2276-4, HA1C, 4-8, 2131-10 #### [facility] ([id number]) [address], [address] [place] [address] #### 76370-7 #### [facility] ([id number]) [address] [place] [address] 53298MHQ WITH REFLEXon 75-95-5357DLO4.47 uIU/mLNormal0.49-4.67 Pro[facility] Medical CenterComment on above:Performed By: #### CBCA, CMP, FEPR, 22034-9, TSHR, 2276-4, HA1C, 2283-8, 2131-10 #### [facility] ([id number]) [address] [facility], [address] [place] [address] #### 54942-6 #### [facility] ([id number]) [address] [place] [address] 71538Llxzfcfz (Bld) [Moles/Vol]on 83-42-1856Bbwafcq (Vitamin B1), WB 78 nmol/LDcrvxv10-242BejXdldsz [facility] Medical CenterComment on above:Result Comment: NOTE ADDITIONAL INFORMATION This test was developed and its performance characteristics determined by [facility] in a manner consistent with CLIA requirements. This test has not been cleared or approved by the U.S. Food and Drug Administration. Test Performed by: [facility] [address] [place] [address] Cleaning Matron: Ester Macdonald Ph.D.; CLIA# [id number] By: #### CBCA, CMP, FEPR, 52327-7, TSHR, 6-4, HA1C, 2283-09, 2131-10 #### [facility] ([id number]) [address] [facility], [address] [place] [address] #### 64827-7 #### [facility] ([id number]) [address] [place] [address] 38390CDQZLWZ B12on 38-80-4866Cpxlogznk (Vitamin B12) [Mass/Vol]253 pg/hZFeqqgt446-188XfkSoyiiq [facility] Medical CenterComment on above:Performed By: #### CBCA, CMP, FEPR, 13994-9, TSHR, 2276-4, HA1C, 2284-8, 2132-9 #### [facility] ([id number]) [address] [facility], [address] [place] [address] #### 23754-8 #### [facility] ([id number]) [address] [facility] [address] F[address] [place], [place] [address]A2T with Estimated Average Gluon 10-52-4376Kgntckf [Mass/Vol] 111 mg/dLNormalScci Hospital LimaComment on above:Result Comment: PERFORMED BY: [place] [address] PATHOLOGIST ELIGIBILITY AND OCCUPANCY INTERVIEWER JONAS BOYCE M.D.Performed By: #### CBC, CMP, A1C WTH eA #### [facility] [address] [place] [address] TDRZtM6o (Bld) [Mass fraction]5.5 %Normal4.3-5.6FDiley Ridge Medical CenterComment on above:Result Comment: Increased risk for diabetes: 5.7 - 6.4 diabetes: >6.4 glycemic control for adults with diabetes: <7.0Performed By: #### CBC, CMP, A1C WTH eA #### [facility] [address] [place] [address] USAAlbumin [Mass/volume] in Serum or PlasmaOrdered By: Joni Branch on 95-69-6880Ahpxsug [Mass/Vol]3.7 g/dL3.2-5.5FDiley Ridge Medical CenterBasophils Auto (Bld) [#/Vol]Ordered By: Joni Branch on 94-11-5231Cdygwxryj (Bld) [#/Vol]0.0 10*3/uL0.0-0.2FDiley Ridge Medical CenterBasophils/100 WBC Auto (Bld)Ordered By: Joni Branch on 89-88-2497Vqzrpddwn/100 WBC (Bld)1.0 %[facility]cci Hospital LimaBilirubin Test strip Ql (U)Ordered By: Joni Branch on 07-09-2021 Bilirubin Ql (U)NegativeNegativeScci Hospital LimaBlood hemoglobin measurement (mass/volume)Ordered By: Joni Branch on 31-64-4943Rjpuebylgw (Bld) [Mass/Vol]13.8 g/dL11.8-15.4FDiley Ridge Medical CenterBlood leukocytes automated count (number/volume)Ordered By: Joni Branch on 53-52-4853LNO (Bld) [#/Vol]4.6 10*3/uL4.5-11.0Scci Hospital LimaColor Auto (U)Ordered By: Joni Branch on 29-68-3865Wegti (U)YellowYellowScci Hospital LimaComplete Blood Count Auto Diffon 50-81-6292Oqoivtzvs (Bld) [#/Vol]0.0 10*3/uLNormal0.0-0.2 [facility] Hospital LimaComment on above:Result Comment: PERFORMED BY: [place] [address] PATHOLOGIST ELIGIBILITY AND OCCUPANCY INTERVIEWER JONAS BOYCE M.D.Performed By: #### CBC, CMP, A1C WTH eA #### [facility] [address] [place] [id number] USABasophils/100 WBC (Bld)1.0 %Normal.Scci Hospital LimaComment on above:Performed By: #### CBC, CMP, A1C WTH eA #### [facility] [address] [place] [address] USAEosinophils (Bld) [#/Vol]0.2 10*3/uLNormal0.0-0.45 [facility] Hospital LimaComment on above:Performed By: #### CBC, CMP, A1C WTH eA #### [facility] [address] [place] [id number] USAEosinophils/100 WBC (Bld)4.1 %Normal.[facility]cci Hospital LimaComment on above:Performed By: #### CBC, CMP, A1C WTH eA #### [facility] [address] [place] [address] USAErythrocyte distribution width (RBC) [Ratio]13.2 %Normal 11.9-15.3FDiley Ridge Medical CenterComment on above:Performed By: #### CBC, CMP, A1C WTH eA #### [facility] [address] [place] [address] USAHematocrit (Bld) [Volume fraction]40.3 %Vejgus92.0-46.4 [facility] Hospital LimaComment on above:Performed By: #### CBC, CMP, A1C WTH eA #### [place] [address] USAHemoglobin (Bld) [Mass/Vol]13.8 g/uUUkrjau94.8-15.4 [facility] Hospital LimaComment on above:Performed By: #### CBC, CMP, A1C WTH eA #### [facility] [address] [place] [address] USALymphocytes (Bld) [#/Vol]1.3 10*3/uLNormal1.00-4.8 [facility] Hospital LimaComment on above:Performed By: #### CBC, CMP, A1C WTH eA #### [place] [address] USALymphocytes/100 WBC (Bld)27.5 %Normal.[facility] Hospital LimaComment on above:Performed By: #### CBC, CMP, A1C WTH eA #### [facility] [address] [place] [address] USAMCH (RBC) [Entitic mass]35.1 fmBhni93.7-34.3FDiley Ridge Medical CenterComment on above:Performed By: #### CBC, CMP, A1C WTH eA #### [facility] [address] [place] [address] USAMCV (RBC) [Entitic vol]102.6 aMShpq32-494CzexxwuyvScci Hospital LimaComment on above:Performed By: #### CBC, CMP, A1C WTH eA #### [address] [place] [address] USAMean Corpuscular HGB Conc34.2 g/qTHxumrj17.0-35.0Scci Hospital LimaComment on above:Performed By: #### CBC, CMP, A1C WTH eA #### [place] [address] USAMonocytes (Bld) [#/Vol]0.3 10*3/uLNormal0.0-0.8S[facility] Hospital LimaComment on above:Performed By: #### CBC, CMP, A1C WTH eA #### [facility] [address] [place] [address] USAMonocytes/100 WBC (Bld)7.4 %Normal.[facility] Hospital LimaComment on above:Performed By: #### CBC, CMP, A1C WTH eA #### [place] [address] USANeutrophils (Bld) [#/Vol]2.7 10*3/uLNormal1.8-7.7FDiley Ridge Medical CenterComment on above:Performed By: #### CBC, CMP, A1C WTH eA #### [place] [address] USANeutrophils/100 WBC (Bld)60.0 %Normal.[facility] Hospital LimaComment on above:Performed By: #### CBC, CMP, A1C WTH eA #### [facility] [address] [place] [address] USANucleated RBC/100 WBC (Bld) [Ratio]0.1 %Normal0-0.5 [facility] Hospital LimaComment on above:Performed By: #### CBC, CMP, A1C WTH eA #### [facility] [address] [place] [address] USAPlatelet mean volume (Bld) [Entitic vol]7.8 fLNormal 6.3-10.7FDiley Ridge Medical CenterComment on above:Performed By: #### CBC, CMP, A1C WTH eA #### [place] [address] USAPlatelets (Bld) [#/Vol]273 10*3/jGVnqsio819-387PfdwjbthqScci Hospital LimaComment on above:Performed By: #### CBC, CMP, A1C WT eA #### [facility] [address] [place] [address] USARBC (Bld) [#/Vol]3.93 10*6/uLNormal3.60-5.00S[facility] Hospital LimaComment on above:Performed By: #### CBC, CMP, A1C WTH eA #### [facility] [address] [place] [address] USAWBC (Bld) [#/Vol]4.6 10*3/uLNormal4.5-11.0S[facility] Hospital LimaComment on above:Performed By: #### CBC, CMP, A1C WTH eA #### [facility] [address] [place] [address] USAComprehensive Metabolic Panelon 97-70-6430Vopnorj [Mass/Vol]3.7 g/dLNormal3.2-5.5FDiley Ridge Medical CenterComment on above:Performed By: #### LIPID, TSH3 wRFLX, [id number] #### [facility] [address] [place] [address] USAAlbumin/Globulin [Mass ratio]1.3 {ratio}NormalScci Hospital LimaComment on above:Performed By: #### LIPID, TSH3 wRFLX, [id number] #### [facility] [address] [place] [address] USAALP [Catalytic activity/Vol]52 U/GDurweq58-77PkgstahwlScci Hospital LimaComment on above:Performed By: #### LIPID, TSH3 wRFLX, [id number] #### [facility] [address] [place] [address] USAALT [Catalytic activity/Vol]20 U/MHdjqvc22-91SzikpkrkbScci Hospital LimaComment on above:Performed By: #### LIPID, TSH3 wRFLX, [id number] #### [facility] [address] [place] [address] USAAST [Catalytic activity/Vol]21 U/GObrhjq14-02HujpkaiiiScci Hospital LimaComment on above:Performed By: #### LIPID, TSH3 wRFLX, [id number] #### [facility] [address] [place] [address] USABilirubin [Mass/Vol]0.6 mg/dLNormal0.3-1.2FDiley Ridge Medical CenterComment on above:Performed By: #### LIPID, TSH3 wRFLX, [id number] #### [place] [address] USACalcium [Mass/Vol]9.5 mg/dLNormal8.2-10.2FDiley Ridge Medical CenterComment on above:Performed By: #### LIPID, TSH3 wRFLX, [id number] #### [facility] [address] [place] [address] USAChloride [Moles/Vol]100 mmol/GIlzwha06-078KdwozthksScci Hospital LimaComment on above:Performed By: #### LIPID, TSH3 wRFLX, [id number] #### [facility] [address] [place] [address] USACO2 [Moles/Vol]30.1 mmol/LHigh22.0-30.0S[facility] Hospital LimaComment on above:Performed By: #### LIPID, TSH3 wRFLX, [id number] #### [facility] [address] [place] [address] USACreatinine [Mass/Vol]0.57 mg/dLNormal0.44-1.03S[facility] Hospital LimaComment on above:Performed By: #### LIPID, TSH3 wRFLX, [id number] #### [facility] [address] [place] [address] USACreatinine Clr Calc Lzloetqs00.27NoDunlap Memorial HospitalComment on above:Result Comment: PERFORMED BY: [place] [address] PATHOLOGIST ELIGIBILITY AND OCCUPANCY INTERVIEWER JONAS BOYCE M.D.Performed By: #### LIPID, TSH3 wRFLX, [id number] #### [facility] [address] [place] [address] USAEstimated GFR ( Vani> 60NoDunlap Memorial HospitalComment on above:Result Comment: GFR estimated reference range: According to KDOQI guidelines, <60 ml/min/1.73m2 is sufficient to diagnose a patient with chronic kidney disease.Performed By: #### LIPID, TSH3 wRFLX, [id number] #### [facility] [address] [place] [id number] USAEstimated GFR (Non- Am> 60NormSelect Medical Specialty Hospital - ColumbusComment on above:Performed By: #### LIPID, TSH3 wRFLX, [id number] #### [facility] [address] [place] [address] USAGlobulin (S) [Mass/Vol]2.8 g/dLNoDunlap Memorial HospitalComment on above:Performed By: #### LIPID, TSH3 wRFLX, [id number] #### [facility] [address] [place] [address] USAGlucose [Mass/Vol]90 mg/jUKjaqbk83-819RytqqglwtScci Hospital LimaComment on above:Result Comment: Random Glucose Reference Range is dependent on time and content of last meal. Glucose of more than 200 mg/dL in a nonstressed, ambulatory subject supports the diagnosis of Diabetes Mellitus. ADA recommended reference rangePerformed By: #### LIPID, TSH3 wRFLX, [id number] #### [facility] [address] [place] [address] USAPotassium [Moles/Vol]3.6 mmol/LNormal3.5-5.1FDiley Ridge Medical CenterComment on above:Performed By: #### LIPID, TSH3 wRFLX, [id number] #### [facility] [address] [place] [address] USAProtein [Mass/Vol]6.5 g/dLNormal6.1-7.9S[facility] Hospital LimaComment on above:Performed By: #### LIPID, TSH3 wRFLX, [id number] #### [facility] [address] [place] [address] USASodium [Moles/Vol]140 mmol/COlgmvq560-142IprzbgxzjScci Hospital LimaComment on above:Performed By: #### LIPID, TSH3 wRFLX, [id number] #### [facility] [address] [place] [address] USAUrea nitrogen [Mass/Vol]12 mg/dLNormal9-23S[facility] Hospital LimaComment on above:Performed By: #### LIPID, TSH3 wRFLX, [id number] #### [facility] [address] [place] [address] USACreatinine and Glomerular filtration rate.predicted panel (S/P/Bld)Ordered By: Joni Branch on 35-42-0907Imahmdwllb [Mass/Vol] 0.57 mg/dL0.44-1.03Scci Hospital LimaEosinophils Auto (Bld) [#/Vol]Ordered By: Joni Branch on 49-28-5839Sfzmeijqyzv (Bld) [#/Vol] 0.2 10*3/uL0.0-0.45Scci Hospital LimaEosinophils/100 WBC Auto (Bld)Ordered By: Joni Branch on 01-21-6665Dsijgylsiwv/100 WBC (Bld)4.1 %[facility]cci Hospital LimaErythrocyte distribution width Auto (RBC) [Ratio]Ordered By: Joni Branch on 12-40-1998Orbdocduspd distribution width (RBC) [Ratio]13.2 %11.9-15.3FDiley Ridge Medical CenterEstimated glomerular filtration rate (GFR) non- AmericanOrdered By: Joni Branch on 66-89-8155JSB/1.73 sq M.predicted among non-blacks MDRD (S/P/Bld) [Vol rate/Area]> 60 mL/MinScci Hospital LimaGlobulin Calc (S) [Mass/Vol]Ordered By: Joni Branch on 28-23-3849Guzshnjv (S) [Mass/Vol] 2.8 g/dLScci Hospital LimaGlucose mean value [Mass/volume] in Blood Estimated from glycated hemoglobinOrdered By: Joni Branch on 74-79-4392Yrurkar glucose Estimated from glycated hemoglobin (Bld) [Mass/Vol]111 mg/dLScci Hospital LimaHematocrit Auto (Bld) [Volume fraction] Ordered By: Joni Branch on 49-79-3630Pqppqxaaij (Bld) [Volume fraction]40.3 %34.0-46.4FDiley Ridge Medical CenterHemoglobin A1c percentageOrdered By: Joni Branch on 10-30-7399YrS9k (Bld) [Mass fraction]5.5 %4.3-5.6FDiley Ridge Medical CenterComment on above:Increased risk for diabetes: 5.7 - 6.4 diabetes: >6.4 glycemic control for adults with diabetes: <7.0Ketones Auto test strip (U) [Mass/Vol]Ordered By: Joni Branch on 49-91-5054Yssrmbd (U) [Mass/Vol] NegativeNegativeScci Hospital LimaLaboratory - Hematology and Cell countsOrdered By: Joni Branch on 76-16-4998Wgzynjrgf RBC/100 WBC (Bld) [Ratio]0.1 %0-0.5FDiley Ridge Medical CenterLymphocytes Auto (Bld) [#/Vol]Ordered By: Joni Branch on 14-11-5429Mifcszlgkrd (Bld) [#/Vol] 1.3 10*3/uL1.00-4.8Scci Hospital LimaLymphocytes/100 WBC Auto (Bld)Ordered By: Joni Branch on 66-69-0111Ehhkgeknksv/100 WBC (Bld) 27.5 %Scci Hospital LimaMCH Auto (RBC) [Entitic mass]Ordered By: Joni Branch on 04-67-3542AGK (RBC) [Entitic mass]35.1 pg24.7-34.3 [facility] Hospital LimaMCHC Auto (RBC) [Mass/Vol]Ordered By: Joni Branch on 81-40-4455NJQI (RBC) [Mass/Vol]34.2 g/dL32.0-35.0 [facility] Hospital LimaMCV Auto (RBC) [Entitic vol]Ordered By: Joni Branch on 18-83-4170BDL (RBC) [Entitic vol]102.6 iI50-420 [facility] Hospital LimaMonocytes Auto (Bld) [#/Vol]Ordered By: Joni Branch on 04-42-1669Debzizkrk (Bld) [#/Vol]0.3 10*3/uL0.0-0.8 [facility] LimaMonocytes/100 WBC Auto (Bld)Ordered By: Joni Branch on 80-69-3005Vbabnqwhq/100 WBC (Bld)7.4 %[facility] Hospital LimaNeutrophils Auto (Bld) [#/Vol]Ordered By: Joni Branch on 58-84-0364Lmauwwqlqsd (Bld) [#/Vol]2.7 10*3/uL1.8-7.7FDiley Ridge Medical CenterNeutrophils/100 WBC Auto (Bld)Ordered By: Joni Branch on 05-01-2038Cqxowaccsta/100 WBC (Bld)60.0 %[facility]cci Hospital LimaNitrite Test strip Ql (U)Ordered By: Joni Branch on 07-09-2021 Nitrite Ql (U)NegativeNegativeScci Hospital LimaNo Panel InformationOrdered By: Joni Branch on 52-88-1115Upmxqnvgt GFR ()> 60 mL/MinScci Hospital LimaComment on above:GFR estimated reference range: According to KDOQI guidelines, <60 ml/min/1.73m2 is sufficient todiagnose a patient with chronic kidney disease.Pharmacy Creatinine Clearance (Chem77.27Scci Hospital LimaPlatelet mean volume Auto (Bld) [Entitic vol]Ordered By: Joni Branch on 38-93-2820Igtfygxj mean volume (Bld) [Entitic vol]7.8 fL6.3-10.7FDiley Ridge Medical Center Platelets Auto (Bld) [#/Vol]Ordered By: Joni Branch on 07-09-2021 Platelets (Bld) [#/Vol]273 10*3/iO885-108KbdsaplztScci Hospital Lima Protein Auto test strip (U) [Mass/Vol]Ordered By: Joni Branch on 88-21-0084Whvvlac (U) [Mass/Vol]NegativeNegativeScci Hospital LimaProtein [Mass/volume] in Serum or PlasmaOrdered By: Joni Branch on 93-20-1869Xwlvuxf [Mass/Vol]6.5 g/dL6.1-7.9[facility] RBC Auto (Bld) [#/Vol]Ordered By: Joni Branch on 14-83-7321KBX (Bld) [#/Vol]3.93 10*6/uL3.60-5.00[facility] Hospitalerum or plasma alanine aminotransferase measurement without P-5'-P (enzymatic activiOrdered By: Joni Branch on 86-92-5339DPY No additional P-5'-P [Catalytic activity/Vol]20 U/U05-01CpoyltytkJoint Township District Memorial Hospitalerum or plasma albumin/globulin mass ratioOrdered By: Joni Branch on 07-09-2021 Albumin/Globulin [Mass ratio]1.3 {ratio}[facility] Hospitalerum or plasma alkaline phosphatase measurement (enzymatic activity/volume)Ordered By: Joni Branch on 00-44-0184ZEN [Catalytic activity/Vol]52 U/L32-92 [facility] Hospitalerum or plasma aspartate aminotransferase measurement (enzymatic activity/volume)Ordered By: Joni Branch on 89-54-7674COR [Catalytic activity/Vol]21 U/O42-99LhongupdxJoint Township District Memorial Hospitalerum or plasma calcium measurement (mass/volume)Ordered By: Joni Branch on 03-05-1866Nmgayiz [Mass/Vol]9.5 mg/dL8.2-10.2FMercy Health Perrysburg Hospitalerum or plasma chloride measurement (moles/volume)Ordered By: Joni Branch on 05-70-1298Mamemggk [Moles/Vol]100 mmol/W80-072IleuvpkttJoint Township District Memorial Hospitalerum or plasma glucose measurement (mass/volume)Ordered By: Joni Branch on 07-26-5203Zefhhio [Mass/Vol]90 mg/sF99-394 [facility] LimaComment on above:ADA recommended reference range Random Glucose Reference Range is dependent on time and content of last meal. Glucose of more than 200 mg/dL in a nonstressed, ambulatory subject supports the diagnosis of Diabetes Mellitus.Serum or plasma potassium measurement (moles/volume)Ordered By: Joni Branch on 70-12-8016Xtmzfaisl [Moles/Vol]3.6 mmol/L3.5-5.1FMercy Health Perrysburg Hospitalerum or plasma sodium measurement (moles/volume)Ordered By: Joni Branch on 07-09-2021 Sodium [Moles/Vol]140 mmol/X370-692ZhnjcapzuJoint Township District Memorial Hospitalerum or plasma total bilirubin measurement (mass/volume)Ordered By: Joni Branch on 83-70-8348Cxobjrels [Mass/Vol]0.6 mg/dL0.3-1.2FMercy Health Perrysburg Hospitalerum or plasma total carbon dioxide measurement (moles/volume) Ordered By: Joni Branch on 39-15-0452RZ2 [Moles/Vol]30.1 mmol/L 22.0-30.0[facility] Hospitalerum or plasma urea nitrogen measurement (mass/volume)Ordered By: Joni Branch on 61-03-1787Mawu nitrogen [Mass/Vol]12 mg/dL9-23[facility] Hospitalpecific gravity Auto test strip (U) [Rel density]Ordered By: Joni Branch on 74-68-1717Phpksnka gravity (U) [Rel density]1.0051.001-1.030[facility] Hospital LimaUrinalysison 70-10-7565Ympijphyec (U)ClearNormalClearScci Hospital LimaComment on above:Order Comment: Name Collection Type:: Clean-Voided MidstreamPerformed By: #### UA #### [facility] [address] [place] [address] USABilirubin,UrineNegativeNormalNegativeScci Hospital LimaComment on above:Order Comment: Name Collection Type:: Clean- Voided MidstreamPerformed By: #### UA #### [facility] [address] [place] [address] USAColor (U)YellowNormalYellowScci Hospital LimaComment on above:Order Comment: Name Collection Type:: Clean-Voided MidstreamPerformed By: #### UA #### [facility] [address] [place] [address] USAGlucose Ql (U)NormalNormalNormSelect Medical Specialty Hospital - ColumbusComment on above:Order Comment: Name Collection Type:: Clean-Voided MidstreamPerformed By: #### UA #### [facility] [address] [place] [address] USAKetones Ql (U)NegativeNormalNegKeenan Private HospitalComment on above:Order Comment: Name Collection Type:: Clean- Voided MidstreamPerformed By: #### UA #### [facility] [address] [place] [address] USALeukocyte esterase Test strip Ql (U)NegativeNormalNegative [facility]cci Hospital LimaComment on above:Order Comment: Name Collection Type:: Clean-Voided MidstreamPerformed By: #### UA #### [facility] [address] [place] [address] USANitrite,UrineNegativeNormalNegativeScci Hospital LimaComment on above:Order Comment: Name Collection Type:: Clean- Voided MidstreamPerformed By: #### UA #### [facility] [address] [place] [address] USAOccult Blood,UrineNegativeNormalNegKeenan Private HospitalComment on above:Order Comment: Name Collection Type:: Clean- Voided MidstreamResult Comment: PERFORMED BY: [place] [address] PATHOLOGIST ELIGIBILITY AND OCCUPANCY INTERVIEWER JONAS BOYCE M.D.Performed By: #### UA #### [facility] [address] [place] [address] USApH (U)7.0 [pH]Normal5.0-9.0Scci Hospital LimaComment on above:Order Comment: Name Collection Type:: Clean-Voided MidstreamPerformed By: #### UA #### [place] [address] USAProtein,UrineNegativeNormalNegativeScci Hospital LimaComment on above:Order Comment: Name Collection Type:: Clean- Voided MidstreamPerformed By: #### UA #### [place] [address] USASpecificy Chunky,Urine1.255Izguxn2.001-1.030Scci Hospital LimaComment on above:Order Comment: Name Collection Type:: Clean-Voided MidstreamPerformed By: #### UA #### [place] [address] USAUrobilinogen,UrineNormalNormalNormalScci Hospital LimaComment on above:Order Comment: Name Collection Type:: Clean- Voided MidstreamPerformed By: #### UA #### [place] [address] USAUrine clarity by refractometry automatedOrdered By: Joni Branch on 17-25-3613Dqimmpb Refractometry automated (U)ClearClear [facility] Hospital LimaUrine glucose measurement by automated test strip (mass/volume)Ordered By: Joni Branch on 34-83-6565Rfsefzo Auto test strip (U) [Mass/Vol]Normal mg/dLNoDunlap Memorial Hospital Urine hemoglobin detection by automated test stripOrdered By: Joni Branch on 94-37-8366Rbjoondejy Auto test strip Ql (U)NegativeNegative [facility] LimaUrine leukocyte esterase detection by automated test stripOrdered By: Joni Branch on 00-68-4491Fgzfbdfrn esterase Auto test strip Ql (U)NegativeNegativeScci Hospital Lima Urobilinogen Auto test strip (U) [Mass/Vol]Ordered By: Joni Branch on 18-57-5222Vwlufsmxnuuq (U) [Mass/Vol]Normal mg/dLNormalScci Hospital LimapH Auto test strip (U)Ordered By: Joni Branch on 00-83-1203iZ (U)7.0 [pH]5.0-9.0Scci Hospital LimaCT head/brain wo conon 50-99-7288BX head/brain wo [facility] [place] [address] CT Scan Report Signed Patient: Alie Lowe MR#: [id number] 94 : 1960 Acct:[id number] Age/Sex: 60 / F ADM Date: 07/06/21 Loc: Room: [address] [place] [address] Type: ADM IN Attending Dr: Sandra Branch [...] Robertson Jr., M.D.07/08/2021 8:17 PM Dictation Location: [place] [address] Transcribed By: NICOLE 07/08/212016 Dictated By: Adan Robertson Jr, MD 07/08/212013 Signed By: 07/08/[address] [place], [place] [address]Cholesterol [Mass/volume] in Serum or PlasmaOrdered By: Joni Branch on 80-02-8189Yidvuekvssj [Mass/Vol]233 mg/uB553-866BbrfbdmukScci Hospital LimaComment on above:Chol less than 200 mg/dl low risk Chol 201-239 mg/dl borderline risk Chol 240 mg/dl and greater high riskCholesterol in LDL Calc [Mass/Vol]Ordered By: Joni Branch on 72-89-4696Zplhbgjxhjl in LDL [Mass/Vol]165 mg/dL 0-100Scci Hospital LimaComment on above:LDL ATP III CLASSIFICATION LDL less than 100 mg/dL Optimal LDL 100-129 mg/dL Near or above optimal LDL 130-159 mg/dL Borderline high LDL 160-189 mg/dL High LDL greater than 189 mg/dL Very highCholesterol in VLDL Calc [Mass/Vol]Ordered By: Joni Branch on 79-78-6815Lbfeokutcbf in VLDL [Mass/Vol]19 mg/dL [facility]cci Hospital LimaComplete Blood Count Auto Diffon 07-07-2021 Basophils (Bld) [#/Vol]0.0 10*3/uLNormal0.0-0.2FDiley Ridge Medical Center Comment on above:Result Comment: PERFORMED BY: [facility] [address] [place] [address] PATHOLOGIST ELIGIBILITY AND OCCUPANCY INTERVIEWER JONAS BOYCE M.D.Performed By: #### CBC, CMP #### [facility] [address] [place] [address] USABasophils/100 WBC (Bld)0.9 %Normal.Scci Hospital LimaComment on above:Performed By: #### CBC, CMP #### [facility] [address] [place] [address] USAEosinophils (Bld) [#/Vol]0.2 10*3/uLNormal0.0-0.45 [facility] Hospital LimaComment on above:Performed By: #### CBC, CMP #### [place] [address] USAEosinophils/100 WBC (Bld)5.5 %Normal.Scci Hospital LimaComment on above:Performed By: #### CBC, CMP #### [place] [address] USAErythrocyte distribution width (RBC) [Ratio]13.8 %Normal 11.9-15.3FDiley Ridge Medical CenterComment on above:Performed By: #### CBC, CMP #### [place] [address] USAHematocrit (Bld) [Volume fraction]43.1 %Eoqadg21.0-46.4 [facility] Hospital LimaComment on above:Performed By: #### CBC, CMP #### [place] [address] USAHemoglobin (Bld) [Mass/Vol]14.5 g/oGUrzbfz53.8-15.4 [facility] Hospital LimaComment on above:Performed By: #### CBC, CMP #### [place] [address] USALymphocytes (Bld) [#/Vol]1.3 10*3/uLNormal1.00-4.8 [facility] Hospital LimaComment on above:Performed By: #### CBC, CMP #### [place] [address] USALymphocytes/100 WBC (Bld)28.9 %Normal.[facility]cci Hospital LimaComment on above:Performed By: #### CBC, CMP #### [place] [address] USAMCH (RBC) [Entitic mass]34.6 tvQxze82.7-34.3FDiley Ridge Medical CenterComment on above:Performed By: #### CBC, CMP #### [facility] [address] [place] [address] USAMCV (RBC) [Entitic vol]103.0 dAHixg54-307TxchiejleScci Hospital LimaComment on above:Performed By: #### CBC, CMP #### [facility] [address] [place] [address] USAMean Corpuscular HGB Conc33.5 g/aOQrhfss51.0-35.0S[facility] Hospital LimaComment on above:Performed By: #### CBC, CMP #### [place] [address] USAMonocytes (Bld) [#/Vol]0.3 10*3/uLNormal0.0-0.8Scci Hospital LimaComment on above:Performed By: #### CBC, CMP #### [place] [address] USAMonocytes/100 WBC (Bld)7.3 %Normal.Scci Hospital LimaComment on above:Performed By: #### CBC, CMP #### [place] [address] USANeutrophils (Bld) [#/Vol]2.6 10*3/uLNormal1.8-7.7FDiley Ridge Medical CenterComment on above:Performed By: #### CBC, CMP #### [place] [address] USANeutrophils/100 WBC (Bld)57.4 %Normal.Scci Hospital LimaComment on above:Performed By: #### CBC, CMP #### [place] [address] USANucleated RBC/100 WBC (Bld) [Ratio]0.2 %Normal0-0.5 [facility] Hospital LimaComment on above:Performed By: #### CBC, CMP #### [place] [address] USAPlatelet mean volume (Bld) [Entitic vol]8.5 fLNormal 6.3-10.7FDiley Ridge Medical CenterComment on above:Performed By: #### CBC, CMP #### [facility] [address] [place] [address] USAPlatelets (Bld) [#/Vol]281 10*3/cEBcchra443-026KtdxjrwofScci Hospital LimaComment on above:Performed By: #### CBC, CMP #### [place] [address] USARBC (Bld) [#/Vol]4.19 10*6/uLNormal3.60-5.00S[facility] Hospital LimaComment on above:Performed By: #### CBC, CMP #### [place] [address] USAWBC (Bld) [#/Vol]4.5 10*3/uLNormal4.5-11.0S[facility] Hospital LimaComment on above:Performed By: #### CBC, CMP #### [place] [address] USAComprehensive Metabolic Panelon 74-99-6063Vbbcxfu [Mass/Vol]3.4 g/dLNormal3.2-5.5FDiley Ridge Medical CenterComment on above:Performed By: #### CBC, CMP #### [place] [address] USAAlbumin/Globulin [Mass ratio]1.3 {ratio}NormalScci Hospital LimaComment on above:Performed By: #### CBC, CMP #### [facility] [address] [place] [address] USAALP [Catalytic activity/Vol]55 U/OQuzctd19-92DhghnypkeScci Hospital LimaComment on above:Performed By: #### CBC, CMP #### [facility] [address] [place] [address] USAALT [Catalytic activity/Vol]14 U/XObwgdg47-52SzzsgvmzqScci Hospital LimaComment on above:Performed By: #### CBC, CMP #### [facility] [address] [place] [address] USAAST [Catalytic activity/Vol]22 U/EKkhckr44-39YeltvkmnoScci Hospital LimaComment on above:Performed By: #### CBC, CMP #### [facility] [address] [place] [address] USABilirubin [Mass/Vol]0.5 mg/dLNormal0.3-1.2FDiley Ridge Medical CenterComment on above:Performed By: #### CBC, CMP #### [facility] [address] [place] [address] USACalcium [Mass/Vol]8.8 mg/dLNormal8.2-10.2FDiley Ridge Medical CenterComment on above:Performed By: #### CBC, CMP #### [facility] [address] [place] [address] USAChloride [Moles/Vol]102 mmol/KDdqfpa60-098DmucivukoScci Hospital LimaComment on above:Performed By: #### CBC, CMP #### [place] [address] USACO2 [Moles/Vol]24.2 mmol/FElmsba38.0-30.0S[facility] Hospital LimaComment on above:Performed By: #### CBC, CMP #### [facility] [address] [place] [address] USACreatinine [Mass/Vol]0.70 mg/dLNormal0.44-1.03[facility] Hospital LimaComment on above:Performed By: #### CBC, CMP #### [place] [address] USACreatinine Clr Calc Srcgzwok59.92NoDunlap Memorial HospitalComment on above:Result Comment: PERFORMED BY: [place] [address] PATHOLOGIST ELIGIBILITY AND OCCUPANCY INTERVIEWER JONAS BOYCE M.D.Performed By: #### CBC, CMP #### [place] [address] USAEstimated GFR ( Vani> 60NoDunlap Memorial HospitalComment on above:Result Comment: GFR estimated reference range: According to KDOQI guidelines, <60 ml/min/1.73m2 is sufficient to diagnose a patient with chronic kidney disease.Performed By: #### CBC, CMP #### [facility] [address] [place] [address] USAEstimated GFR (Non- Am> 60NoDunlap Memorial HospitalComment on above:Performed By: #### CBC, CMP #### [facility] [address] [place] [address] USAGlobulin (S) [Mass/Vol]2.7 g/dLNoDunlap Memorial HospitalComment on above:Performed By: #### CBC, CMP #### [place] [address] USAGlucose [Mass/Vol]183 mg/wPFwrw57-949UwagpbqaoScci Hospital LimaComment on above:Result Comment: Random Glucose Reference Range is dependent on time and content of last meal. Glucose of more than 200 mg/dL in a nonstressed, ambulatory subject supports the diagnosis of Diabetes Mellitus. ADA recommended reference rangePerformed By: #### CBC, CMP #### [facility] [address] [place] [address] USAPotassium [Moles/Vol]3.9 mmol/LNormal3.5-5.1FDiley Ridge Medical CenterComment on above:Performed By: #### CBC, CMP #### [facility] [address] [place] [address] USAProtein [Mass/Vol]6.1 g/dLNormal6.1-7.9S[facility] Hospital LimaComment on above:Performed By: #### CBC, CMP #### [facility] [address] [place] [address] USASodium [Moles/Vol]140 mmol/DOpwyjg690-505RruwbrytzScci Hospital LimaComment on above:Performed By: #### CBC, CMP #### [facility] [address] [place] [address] USAUrea nitrogen [Mass/Vol]15 mg/dLNormal9-23Scci Hospital LimaComment on above:Performed By: #### CBC, CMP #### [facility] [address] [place] [address] USAECG 12 lead ECGon 13-52-0556GUT 12 lead [facility]ZAN[facility] [place] [address] [place] [address] Electrocardiograph Report Signed Patient: Alie Lowe MR#: [id number] [birth year] : 1960 Acct:[id number] Age/Sex: 60 / F ADM Date: 07/06/21 Loc: Room: [address] [place] [address] Type: DIS IN Attending Dr: Sandra Branch [...] ECG No previous ECGs available Confirmed by MICAELA VAN, BISHOP ([id number]) on 07/08/2021 7:13:08 AM Referred By: Electronically Signed By:BISHOP HINOJOSA MD Transcribed By: MUS Signed By Bishop Hinojosa MD 0 07/08/21 0713NoDunlap Memorial HospitalLaboratory - Chemistry and Chemistry - challengeOrdered By: Harriet Barber on 82-22-7194Tjoskuzok (Vitamin B12) [Mass/Vol]165 pg/cI406-357IcwkicwbbScci Hospital LimaLipid Panelon 33-44-2419Ledpacozfeu [Mass/Vol]233 mg/bLMrlg433-354NwnhwulqhScci Hospital LimaComment on above:Result Comment: Chol less than 200 mg/dl low risk Chol 201-239 mg/dl borderline risk Chol 240 mg/dl and greater high riskPerformed By: #### LIPID, TSH3 wRFLX, [id number] #### [facility] [address] [place] [address] USACholesterol in HDL [Mass/Vol]48 mg/zCWzylgz66-39YsigxmqokScci Hospital LimaComment on above:Result Comment: HDL CHOL ATP-III CLASSIFICATION Cardiovascular Risk HDL > or equal to 60 mg/dL LOW HDL < 40 mg/dL HIGHPerformed By: #### LIPID, TSH3 wRFLX, [id number] #### [facility] [address] [place] [address] USACholesterol.total/Cholesterol in HDL [Mass ratio]4.9 {ratio}Normal<5.0S[facility] Hospital LimaComment on above:Performed By: #### LIPID, TSH3 wRFLX, [id number] #### [facility] [address] [place] [address] USALDL Cholesterol,Ymbouwncqn264 mg/dLHigh0-100S[facility] Hospital LimaComment on above:Result Comment: LDL ATP III CLASSIFICATION LDL less than 100 mg/dL Optimal LDL 100-129 mg/dL Near or above optimal LDL 130-159 mg/dL Borderline high LDL 160-189 mg/dL High LDL greater than 189 mg/dL Very highPerformed By: #### LIPID, TSH3 wRFLX, [id number] #### [facility] [address] [place] [address] USATriglyceride w/Yvzauh55 mg/rGAnbtlt28-243LfsbrbucvScci Hospital LimaComment on above:Result Comment: TRIG ATP III CLASSIFICATION TRIG less than 150 mg/dL Normal TRIG 150-199 mg/dL Borderline high TRIG 200-500 mg/dL High TRIG greater than 500 mg/dL Very high Standard traceable to the Center for Disease Conrtrol and Prevention (CDC) test method.Performed By: #### LIPID, TSH3 wRFLX, [id number] #### [facility] [address] [place] [address] USAVLDL ATEKJZEQDFA38 mg/dLNormalScci Hospital LimaComment on above:Performed By: #### LIPID, TSH3 wRFLX, [id number] #### [facility] [address] [place] [address] USANo Panel InformationOrdered By: Joni Branch on 19-53-852883170369-Mlhfmup Vitamin D Total17.9 ng/nD19-689GfjzcucoyScci Hospital LimaComment on above:VITAMIN D STATUS 25(OH)VITAMIN D RANGE (ng/mL) Deficient <20 Insufficient 20 to <30 Sufficient 30 to 100 Reference: Rambo MF,Josemanuel NC, Nahomi TUCKER, et al. Evaluation,treatment, and prevention of vitamin D deficiency; an Endocrine Society clinical practice guideline. JCEM. 2010; 96(7):1911-30.Serum or plasma high density lipoprotein (HDL) cholesterol measurementOrdered By: Joni Branch on 77-69-4666Jcumfavpqkn in HDL [Mass/Vol]48 mg/dL35-85 [facility] Hospital LimaComment on above:HDL CHOL ATP-III CLASSIFICATION Cardiovascular Risk HDL > or equal to 60 mg/dL LOW HDL < 40 mg/dL HIGHSerum or plasma total cholesterol/high density lipoprotein (HDL) cholesterol mass ratOrdered By: Joni Branch on 07-07-2021 Cholesterol.total/Cholesterol in HDL [Mass ratio]4.9 {ratio}Scci Hospital LimaTS DL <= 0.005 mIU/L QnOrdered By: Joni Branch on 69-89-2018TZD Qn1.93 m[IU]/L0.45-5.33Scci Hospital LimaThyroid Stim Hormone w/Rflxon 93-41-1157Blevkjp Stim Hormone w/Rflx1.93 u[iU]/mLNormal 0.45-5.33[facility] Hospital LimaComment on above:Performed By: #### LIPID, TSH3 wRFLX, [id number] #### [facility] [address] [place] [address] USATriglyceride [Mass/volume] in Serum or PlasmaOrdered By: Joni Branch on 18-20-6692Nfpjstsajrdd [Mass/Vol]99 mg/mG28-479 [facility] Hospital LimaComment on above:TRIG ATP III CLASSIFICATION TRIG less than 150 mg/dL Normal TRIG 150-199 mg/dL Borderline high TRIG 200-500 mg/dL High TRIG greater than 500 mg/dL Very high Standard traceable to the Center for Disease Conrtrol and Prevention (CDC) test method.Vitamin B12on 57-25-5713Hqkpzuapb (Vitamin B12) [Mass/Vol]165 pg/mLLow 180-914S[facility] Hospital LimaComment on above:Order Comment: Comment add on to previously drawn labsResult Comment: PERFORMED BY: [place] [id number] PATHOLOGIST ELIGIBILITY AND OCCUPANCY INTERVIEWER JONAS BOYCE M.D.Performed By: #### LIPID, TSH3 wRFLX, [id number] #### [address] [address] USAVitamin D 25 Hydroxy Totalon 35-01-7298Iejhdpi D 25 Hydroxy Total17.9 ng/cJDmg04-835MybljvzssScci Hospital LimaComment on above:Result Comment: VITAMIN D STATUS 25(OH)VITAMIN D RANGE (ng/mL) Deficient <20 Insufficient 20 to <30 Sufficient 30 to 100 Reference: Rambo MF,Josemanuel NC, Nahomi TUCKER, et al. Evaluation,treatment, and prevention of vitamin D deficiency; an Endocrine Society clinical practice guideline. JCEM. 2010; 96(7):1911-30. PERFORMED BY: [address] [address] PATHOLOGIST ELIGIBILITY AND OCCUPANCY INTERVIEWER JONAS BOYCE M.D.Performed By: #### LIPID, TSH3 wRFLX, [id number] #### [address] [address] [facility] Vital Signs Date TimeVital SignValuePerforming VvaofvplsMztqxppo92-92-7880 14:58-0400Body qhjozf414.9 Saskia Hdez MD Work Phone: [facility] CenterGeev.[employer]08-25-2025 14:58-0400Body mass index (BMI) [Ratio]20.97 kg/e2LmcmrGiovanni Hdez MD Work Phone: [facility] CenterKyp Oujgak26-93-3082 14:58-0400Body pigoyc61.35 kgGiovanni Hdez MD Work Phone: [phone] [place], [place] 2728808-25-2025 14:58-0400Diastolic blood ajrufrxn59 mm[Hg]Giovanni Hdez MD Work Phone: [phone]08-25-2025 14:58-0400Heart rate 76 /minGiovanni Hdez MD Work Phone: [phone]08-25-2025 14:58-0400Systolic blood tbakiewx515 mm[Hg]Giovanni Hdez MD Work Phone: [phone]07-31-2025 22:39-2330KjS3% (BldA) [Mass fraction]100 %VIVIANA [facility] CenterComment on above:Performed By: #### CBCA, PINR, 49783-0 #### [facility] ([id number]) [address], [address] [place], [place] 6759598-92-8546 18:40-7500LfQ4% (BldA) [Mass fraction]121 %MERE EECleveland Clinic South Pointe HospitalComment on above:Performed By: #### CBCA, CMP, FEPR, 87222-4, TSHR, 2276-4, HA1C, 2284-8, 2132-9 #### [facility] ([id number]) [address] [place] [address] #### [address]496-0 #### [facility] ([id number]) [address] [place] [address], [place], [place] [id number] 14:00-0400Body yzwmlv440.4 cmKelsi Mici PA-C Work Phone: [phone]05-05-2025 14:00-0400Body mass index (BMI) [Ratio]20.12 kg/g4Vtunk Mici PA-C Work Phone: [phone]05-05-2025 14:00-0400Body .72 kgKelsi Mici PA-C Work Phone: [facility] CenterKyp Hccmxb85-34-7381 14:00-0400Diastolic blood sdqvecvv04 mm[Hg]Teagan Mici PA-C Work Phone: [facility] [employer] Ziuvrl72-58-9460 14:00-0400Heart rate 80 /minRenesi Mici PA-C Work Phone: [facility] [employer] Gottte69-67-5199 14:00-0400Systolic blood gadcdfpr86 mm[Hg]Teagan Mici PA-C Work Phone: [facility] [employer] Txbgtw43-21-8999 11:30-0400Body uudbnesnbmt46.01 [degF]Viviana Mccloud MD Work Phone: [facility] [employer] Kggpfm42-67-1627 11:30-0400Diastolic blood mm[Hg]Viviana Mccloud MD Work Phone: [facility] [employer] Solafz95-27-4618 11:30-0400Heart rate 96 /minViviana Mccloud MD Work Phone: [facility] [employer] Zzfinh69-18-7491 11:30-0400 Respiratory rate16 /Bita Mccloud MD Work Phone: [facility] [employer] Ttauum12-60-3622 11:30-3386MzD0% (BldA) [Mass fraction]97 %Viviana Mccloud MD Work Phone: [facility] [employer] Ddwjpw36-73-5277 11:30-0400Systolic blood uyckznmh846 mm[Hg]Viviana Mccloud MD Work Phone: [facility] [employer] Hysltf60-63-9602 03:20-0400Body mass index (BMI) [Ratio]17.65 kg/w1UtrtpmtViviana Mccloud MD Work Phone: [facility] [employer] Woqqle44-45-5260 03:20-0400Body pntdpe13 kgViviana Mccloud MD Work Phone: [facility]03-26-2025 09:00-0400Body znocpm417.4 Wilfrid Mccloud MD Work Phone: [facility]03-25-2025 16:45-0400Body wtgavscahxq66.6 [degF]Viviana Mccloud MD Work Phone: [facility]03-25-2025 16:45-3164GrD6% (BldA) [Mass fraction]96 %Viviana Mccloud MD Work Phone: [facility]03-25-2025 16:45-9230BhM6% (BldA) [Mass fraction]97 %Viviana Mccloud MD Work Phone: [facility]03-25-2025 16:41-7314BhD9% (BldA) [Mass fraction]97 %VIVIANAKailash MCCLOUDMercy Health – The Jewish HospitalComment on above:Performed By: #### ICODE #### [facility] ([id number]) [address] [place], [place] [id number] 07:30-0400Body pjbmopnpvxv56 [degF]MD Sandra Branch Work Phone: [facility]05-29-2022 07:30-0400 Diastolic blood virppltj23 mm[Hg]MD Sandra Branch Work Phone: [facility]05-29-2022 07:30-0400 Heart rate70 /minMD Sandra Branch Work Phone: [facility]05-29-2022 07:30-0400 SaO2% (BldA) [Mass fraction]99 %MD Sandra Branch Work Phone: [facility]05-29-2022 07:30-0400 Systolic blood yhldikjp461 mm[Hg]MD Sandra Branch Work Phone: [facility]05-28-2022 20:09-0400 Respiratory rate16 /minMD Sandra Branch Work Phone: [facility]05-25-2022 14:24-0400 Body qanmwz214.4 cmMD Sandra Branch Work Phone: [facility]05-24-2022 17:04-0400 Body mass index (BMI) [Ratio]21.9 kg/m2ND Sandra Branch Work Phone: [facility]05-24-2022 17:04-0400 Body .8 kgND Sandra Branch Work Phone: [facility] Encounters Encounter DateEncounter TypeCare ProviderFacilityStart: 12-24-2024 End: 26-43-8740osciwdcdolFDKJO L DEBENEDETTIProSelect Medical [facility], Inc HospitalStart: 11-25-2024 End: 29-93-3441vcbxfksvnsNllbdaoAlexander Mayers MDFacility:REBECCA Rhoades Start: 11-16-2024 End: 77-57-2596oummpbpmybTHQRVQE M [facility] HospitalStart: 11-12-2024 End: 48-45-5751fkpdozudlhVtnlh Defrance MD Work Phone: [facility] Work Phone: Start: 11-12-2024 End: 29-19-1645Iyqcyny encounter procedureNicjane [facility] Of [facility] Work Phone: Start: 10-11-2024 End: 51-56-4560Joiknjppes and management of inpatientCOMMUNITY HEALTH SERVICES [facility] Hospitaltart: 10-07-2024 End: 97-65-7999Wibcgy outpatient visit 25 minutesGiovanni Hdez MD Work Phone: [facility] CardiologyComment on above: Chronic systolic heart failure (CMS-HCC) (Primary Dx); Ischemic cardiomyopathy; Mixed hyperlipidemiaStart: 10-07-2024 End: 62-84-9822zsapjlbucxIKGGN Ruby ALEMANUniversity Medical Center New Orleans HospitalStart: 10-04-2024 End: 70-80-2520Jpaiffynb encounterLisa Michael JOYProMedica Physicians Cardiology Start: 09-30-2024 End: 80-20-7848Oeeslmsru encounterCher CEJA Work Phone: [facility] General SurgeryStart: 09-30-2024 End: 95-72-8295kynvdzadoxOpzcbkg Vytdeisi Mayers MDFacility:[facility] [place] Start: 09-25-2024 End: 06-78-5973uswpkljlweGOQHL M [facility] HospitalStart: 09-13-2024 End: 77-62-6811Fmzpzlcjx encounterRobaneesh Kwan Call CenterComment on above:ordersStart: 09-12-2024 End: 14-01-8353Pmgsjxahfc and management of inpatientLI WANGHenry County Hospital HospitalStart: 09-12-2024 End: 65-15-7403Vasxhjzkj department patient visitCOMMUNMERCY MEMORIAL HOS[facility]ITAL [facility] Hospitaltart: 09-12-2024 End: 98-03-7910jvxxplfuuvTQKJH MICIProMedica Kaiser Foundation Hospitaltart: 09-11-2024 End: 36-13-6854Owmbohisx encounterAngela Kwan Physicians CardiologyComment on above:Life VestStart: 08-12-2024 End: 64-41-3363tmggxteejlRxzqulq Vytautas Giedraitis MDFacility:PM J[facility] Start: 07-15-2024 End: 97-50-7321mjppebjuphQtnkgmj Vytautas Giedraitis MDFacility:PM [place] Start: 07-01-2024 End: 33-92-3383ldctxgyodkDbyuxzk Vytautas Giedraitis MDFacility:PM [place] Start: 89-39-2539mgffihkenhJTXFN MICIProMedCox South HospitalStart: 06-17-2024 End: 90-48-8291Ixwppg outpatient visit [facility] [place] [facility] hospitalKelfaby Lorena STEPHENS Work Phone: [facility] CardiologyComment on above: Coronary artery disease involving [place] coronary artery of [place] heart without angina pectoris (Primary Dx); Hypertension, unspecified type; Mixed hyperlipidemia; Chronic systolic heart failure (CMS-HCC); Complete heart block (CMS-HCC); Continuous tobacco abuseStart: 06-17-2024 End: 11-14-2368Rdghczznc encounterMonica Sharif [facility]jaclyn [facility] Comment on above:Life Vest issueStart: 06-17-2024 End: 54-83-1836nebduxuftrOJJBOVA Medical Center HospitalStart: 06-14-2024 End: 39-15-0546Wqctcfrle encounterJuana Eden [facility]GProMedica Physicians CardiologyStart: 05-30-2024 End: 37-77-4247Wwrfj abstractingScanning Provider ExternalProMedica Physicians CardiologyStart: 05-30-2024 End: 32-88-5996lupfzgxmbwUNVBLMIR DENBESTENNot AvailableStart: 05-30-2024 End: 42-36-5287Zbechzw encounter Chela Blue PhD Work Phone: aNA ROSEYComment on above:Alcoholic Korsakoff syndrome (CMS/HCC) (Primary Dx); Memory loss; Concentration deficit; History of alcohol abuse; Family history of dementia; BereavementStart: 05-22-2024 End: 28-73-0969nshvedeeqkBSODTFR M PILLAIHenry County Hospital HospitalStart: 05-21-2024 End: 20-15-1272Akzbqwtym encounterKristen LainezMercy Health West Hospital Neurology, A Department of [facility] HospitalComment on above:New PatientStart: 05-20-2024 End: 67-14-0818Fuqwrrp encounter procedureArt Blue PhD Work Phone: aNA ROSEYComment on above:Memory loss (Primary Dx); Concentration deficit; Family history of dementia; History of alcohol abuse; BereavementStart: 05-20-2024 End: 86-59-8605swyykhjulgVYVDAKNU DENBESTENNot AvailableStart: 05-20-2024 End: 35-36-9245Zrmejxabril Blue PhD Work Phone: ana SANDUSKYStart: 05-20-2024 End: 93-12-7729Gdawpzdariela Blue PhD Work Phone: ana SANDUSKYStart: 05-10-2024 End: 75-92-0997Zuvajvrmbc and management of inpatientAIZAZ ALIProWadsworth-Rittman Hospitalca [place] HospitalStart: 05-10-2024 End: 39-48-6913Qrgzmltkoi and management of inpatientAHMAD MAHMercy Health Clermont Hospital HospitalStart: 05-09-2024 End: 59-21-9932Qdyptejqez and management of inpatientAHMAD [facility] HospitalStart: 05-08-2024 End: 85-30-5546Udzrbfrqw encounterGilberto Zepeda MD Work Phone: [facility] CardiologyComment on above:s/p CATH/PCIStart: 05-07-2024 End: 64-42-3854hcpzvsgwttUAKLQBO PROVIDERFacility:METROHealthStart: 05-07-2024 End: 82-86-0704Szcfpqoxml and management of inpatientSjakob Luciano MD Work Phone: [facility] 6 AcuteStart: 05-07-2024 End: 50-63-9418Seqwonckh encounterTamika EnochProMedica Call CenterComment on above:Order clarificationStart: 05-07-2024 End: 23-75-9181Fgwwmtqja department patient visitCOMMUNITY HEALTH SERVICES [facility] HospitalStart: 04-10-2024 End: 73-50-8626Sfvhoqtvu encounterTa-Reina RoseProMedica Physicians NeurologyComment on above:Neuro Referral/Ins IssueStart: 04-06-2024 End: 96-23-0170qxecousbdmWOSKKS AQEELProMedica Kaiser Foundation Hospitaltart: 07-06-2021 End: 42-25-7173Gvxmrjpcuv and management of inpatientDavid Defrance Facility:[facility] Hospitaltart: 07-06-2021 End: 27-06-2926Hglwxryzkh and management of inpatientMD Sandra Branch Work Phone: [facility] Procedures DateProcedureProcedure DetailPerforming ClinicianStart: 71-32-0150Sawdawge screenRAMSHA AQEELComment on above:Performed By: #### CBCA, CMP, FEPR, 07004-2, TSHR, 2276-4, HA1C, 2284-8, 2132-9 #### [facility] ([id number]) [address], [address] [place] [address] #### 27156-8 #### [facility] ([id number]) [address] [place] [address]Mvrxv: 76-15-8144Xplibblk screenRAMSHA AQEELComment on above: Performed By: #### CBCA, CMP, FEPR, 58524-2, TSHR, 2276-4, HA1C, 2284-8, 2132-9 #### [facility] ([id number]) [address] [facility] [address], [address] [place] [address] #### 64331-2 #### [facility] ([id number]) [address] [place] [address]Cdpct: 26-13-2906Lqgtlj-up visitFollow-Gunnar HDEZ Start: 46-42-0473Guwjh metabolic panel calcium Lisa Gregory MD Work Phone: Start: 03-83-1882Wxculybfponue metabolic panelStepaz Greene PA-C Work Phone: Start: 04-05-0270Sgrorybffzgwt metabolic panelStephen P Jc PA-C Work Phone: Start: 87-87-8972Cfxhlsyruqecg metabolic panelStephen P Jc PA-C Work Phone: Start: 39-61-6643Ezdg bld gluc mntr dev cleared fda spec home useStepgillbenny Luciano MD Work Phone: Start: 92-98-1255Uiauhnitrzjqi metabolic panelStephen P Jc PA-C Work Phone: Start: 97-87-4468Ggknxgctjzh panelAlfa Gregory MD Work Phone: Start: 49-98-9916Xezfuwilkkyaz metabolic panelStephen P Jc PA-C Work Phone: Start: 14-32-5425Uaizpxfpfrm panelAlfa Gregory MD Work Phone: Start: 14-92-5268Oqsqzfopvmb panelAlfa Gregory MD Work Phone: Start: 23-23-6565Aiwriwlieanrv metabolic panelStephen P Jc PA-C Work Phone: Start: 27-25-7959Ojvulamybxl panelAlfa Gregory MD Work Phone: Start: 99-20-3234Byzjuhecita panelAlfa Gregory MD Work Phone: Start: 26-83-9205Hpwnsdhvbxizy metabolic panelStephen P Jc PA-C Work Phone: Start: 00-72-8951Hwndyifduyt panelAlfa Gregory MD Work Phone: Start: 84-40-9614Zlnifmbhvxhhun vitamin b-12Symely White MD Work Phone: Start: 92-41-9390LJCZmclx Ali MD Work Phone: Start: 05-66-4472Asqtfwenfrq panelMontshero Kang MD Work Phone: Start: 94-46-9226Qtcq transthorc r-t 2d w/wo m-mode rec f-up/lmtMandi Spangler MD Work Phone: Start: 31-80-3665Fazkhulvdqe Iris Gregory MD Work Phone: Start: 97-55-5408Xputcgfcfaamf metabolic panelStephen P Jc PANir Work Phone: Start: 84-37-4337Zkztnwmsnab Iris Gregory MD Work Phone: Start: 08-33-9820Nsejembqoje Iris Gregory MD Work Phone: Start: 46-05-9305YIXOQXDSITQ CARE EDUCATIONMojaguar Mcnally MD Work Phone: Start: 82-36-0109UMSWXKD INVASIVEAhjosi Spangler MD Work Phone: Start: 66-20-1814URPCSBUXPXYA CORONARY INTERVENTION Aiden Spangler MD Work Phone: Start: 23-02-3402ASPJD DRUG-ELUT/EA ADD BR LCKeon Spangler MD Work Phone: Start: 71-18-7632Evvtoxyysge Iris Gregory MD Work Phone: Start: 05-09-2024 End: 08-80-0389Jmijrnuhdyb Iris Gregory MD Work Phone: Start: 24-53-1175Xaydgezohon panelAlfa Gregory MD Work Phone: Start: 77-29-4972Jugvppmzmzt panelAlfa Gregory MD Work Phone: Start: 11-10-8003Udxnqceecdz panelAlfa Gregory MD Work Phone: Start: 82-18-4540Idukv of osmolality urineRamclarence Gregory MD Work Phone: Start: 43-14-9507Qhvy tst prsmv instrmnt chem analyzers pr dateBerta Kang MD Work Phone: Start: 90-63-4938Scwciigw totalBerta Kang MD Work Phone: Start: 00-73-2612DX ALCOHOL; ANY SPECIMEN EXCEPT URINE AND BREATH, IMMUNOASSAYMondevika Kang MD Work Phone: Start: 35-04-6933Bphjq panelMondevika Kang MD Work Phone: Start: 68-44-6208Nzcmzoocbovze metabolic panel Maya Luciano MD Work Phone: Start: 44-05-6235Crqxo count complete automatedStephen P Jc PA-C Work Phone: Start: 47-50-4061Iivlawqvacitp metabolic panelGurinder Espinal MD Work Phone: Start: 21-74-9265Zir routine ecg w/least 12 lds trcg only w/o i&rBrijorden Zepeda MD Work Phone: Start: 75-32-3222UXXACTPSPNW CARE EDUCATIONGilberto Zepeda MD Work Phone: Start: 14-58-3517HCVNFKV INVASIVEAiden Spangler MD Work Phone: Start: 71-11-9823PDBAUO/REPLACE TEMP SNGL Myriam Spangler MD Work Phone: Start: 78-88-5800IVDH INITIAL VESSELAiden Spangler MD Work Phone: Start: 29-72-8064ZNSQZBGVRNJQ CORONARY INTERVENTION Aiden Spangler MD Work Phone: Start: 36-08-7825GZEDXD COGNOS ARCHITECT/GARETT STENT/ATH LADAiden Spangler MD Work Phone: Start: 06-75-8282Vvug transthorc r-t 2d w/wo m-mode rec f-up/lmtdGurinder Espinal MD Work Phone: Start: 66-65-4615Mhp routine ecg w/least 12 lds trcg only w/o i&rJjerad Espinal MD Work Phone: Start: 05-07-2024 End: 91-48-2136Dhhb bld gluc mntr dev cleared fda spec home useStepgillbenny Luciano MD Work Phone: Start: 31-47-3269Yommim serum plasma or whole blood Shayne Evelia Velasquez MD Work Phone: start: 39-37-4423Apink depression screening assessment Shonda CuffieStart: 32-09-1427IG of head without contrastMD Sandra Branch Work Phone: Plan of Treatment DateCare ActivityDetailAuthorStart: 53-83-8794AAyV,Tdap and Td Vaccines (2 - Td or Tdap)DTaP,Tdap and Td Vaccines (2 - Td or Tdap)[facility] SystemStart: 72-18-7583Gvnir BMI ScreeningAdult BMI ScreeningAshtabula County Medical Center SystemStart: 97-86-6778Dgtzygf ScreeningTobacco ScreeningAshtabula County Medical Center SystemStart: 62-57-0182Xtbyy BMI ScreeningAdult BMI ScreeningSt. Anthony's Hospitalca [facility] SystemStart: 22-53-9222Iktjm BMI ScreeningAdult BMI ScreeningSt. Anthony's Hospitalca [facility] SystemStart: 14-33-9589Dctvjhl ScreeningTobacco ScreeningSt. Anthony's Hospitalca [facility] SystemStart: 67-12-6298Zatxq BMI ScreeningAdult BMI ScreeningSt. Anthony's Hospitalca [facility] SystemStart: 92-18-5696Vwxzjp Use: CardiovascularStatin Use: CardiovascularAshtabula County Medical Center SystemStart: 39-63-4224Rgcmy BMI ScreeningAdult BMI ScreeningAshtabula County Medical Center SystemStart: 64-55-5590Fnykf BMI ScreeningAdult BMI ScreeningSt. Anthony's Hospitalca [facility] SystemStart: 82-54-9392Zzgfzxh ScreeningTobacco ScreeningOhioHealth Grady Memorial Hospital Start: 12-10-2024 End: 85-65-6494Thqycsi encounter koghkhcve94/28/2025 12:30 PM EDT Office Visit [facility] [address] [place] [address] Santos Nishi Rasheed, CHIEF BANK EXAMINER-SUPERVISOR [employer] [address] [place], [place] [address] [facility] CardiologyStart: 11-25-2024 End: 77-69-5188Mivbuom encounter /13/2025 7:30 AM EDT Appointment [facility] - Cardi[facility] [address] [place] [address] Giovanni Hedz MD [address] [place] [address] [facility] - CardiovascularStart: 84-04-2920Nuytuvyys vaccinationInfluenza VaccineSampson Regional Medical Centertart: 10-07-2024 End: 28-88-8377Vqfoswj encounter /25/2025 3:15 PM EDT Office Visit [facility] [address] [place] [address] Giovanni Hdez MD [address] [place] [address] [facility] CardiologyStart: 10-07-2024 End: 82-14-6192Ahcm limited W/O contrastEcho limited W/O contrast Echocardiography Routine Ischemic cardiomyopathy Expected: 10/07/2024, Expires: 10/07/2025[facility] Work Phone: Comment on above:Expected: 10/07/2024, Expires: 10/07/2025Start: 09-17-2024 End: 12-21-7252Npndchu function 2000 panel - Serum or PlasmaHepatic function panel Lab Routine Mixed hyperlipidemia Expected: 09/17/2024 (Approximate), Expires: 06/17/2025ProShelby [facility] Health SystemComment on above:Expected: 09/17/2024 (Approximate), Expires: 06/17/2025Start: 09-17-2024 End: 16-19-9261Vicjl panelLipid panel Lab Routine Mixed hyperlipidemia Expected: 09/17/2024 (Approximate), Expires: 06/17/2025[facility] Work Phone: Comment on above:Expected: 09/17/2024 (Approximate), Expires: 06/17/2025Start: 09-12-2024 End: 59-96-9653Qqqbbyk encounter buyziqahd64/31/2025 1:30 PM EDT Appointment [facility] - [facility] [address] [place] [address] Teagan Carrillo PA-C [address] [place] [address] [facility] - CardiovascularStart: 08-17-2024 End: 52-73-4940Wmol complete W/O contrastEcho complete W/O contrast Echocardiography Routine Chronic systolic heart failure ([facility]-HCC) Expected: 08/17/2024 (Approximate), Expires: 06/17/2025ProUniversity [facility]als [facility] SystemComment on above:Expected: 08/17/2024 (Approximate), Expires: 06/17/2025Start: 06-17-2024 End: 29-42-2861Kxzfvkh encounter ddlfkceed04/05/2025 2:00 PM EDT Office Visit [facility] [address] [place] [address] Teagan Carrillo PA-C [address] [place] [address] [facility] CardiologyStart: 06-17-2024 End: 55-69-4933Kywfuipa Telemetry (In Office)[facility] SystemComment on above:Expected: 06/17/2024, Expires: 06/17/2025Start: 05-30-2024 End: 04-95-6047Uctzzwl encounter rzvjpqwaw73/17/2025 9:00 AM EDT Office Visit [facility] [address] aNA ROSEYStart: 05-20-2024 End: 51-38-5828Ygxvxlb encounter xrkjkyskt91/07/2025 2:30 PM EDT Office Visit [facility] [address] Art Blue, PhD [address] [place] [address] Flavia ROSEYComment on above:ArrivedStart: 05-18-2024 End: 55-63-4457FA Cervical spine WO and W contrast IVProMedica Work Phone: Start: 05-18-2024 End: 35-92-8684WE Lumbar spine WO and W contrast IVSt. Anthony's Hospitalca Health SystemStart: 05-15-2024 End: 36-45-2395Rhohygyg Telemetry (In Office)[facility] Work Phone: Start: 73-51-3829Yxlacvcmi vaccinationInfluenza VaccineProUniversity Hospitals [facility] SystemStart: 52-10-8581Bpuycqx ScreeningTobacco ScreeningProShelby [facility] Health SystemStart: 59-94-4208Rxfnj BMI ScreeningAdult BMI ScreeningMercy Health West Hospital Health SystemStart: 83-11-0029Bsexdmffnj ScreeningDepression ScreeningAshtabula [facility] SystemStart: 45-42-9404Hjfphhdvmhxhcu of varicella zoster vaccineZoster (Shingles) Vaccine (1 of 2)[facility] [employer] SystemStart: 25-49-7275Dqujguiiz for malignant neoplasm of breastMammogramAshtabula County Medical Center SystemStart: 74-35-9095Enkujegwz for malignant neoplasm of cervixPap Smear ProMNorth Shore Health SystemStart: 18-98-2692Xusda BMI Follow Up PlanAdult BMI Follow Up PlanProUniversity Hospitals Port[facility] SystemStart: 34-42-9573Lyornln CounselingTobacco CounselingAshtabula [facility] System End: 31-09-8134tRBT in Blood by Coagulation assayProShelby Baptist Medical Center Health SystemBasic metabolic 1999 panel - Serum or PlasmaProMedica Work Phone: End: 01-41-0635Alxto metabolic 2000 panel - Serum or PlasmaBasic Metabolic Panel Lab Routine Chronic systolic heart failure ([facility]) 1 Occurrences starting until 06/17/2025Pro[facility] Health SystemComment on above:1 Occurrences starting 06/17/2024 until 06/17/2025 End: 05-29-6052Wiezs count hemoglobinProMedica Work Phone: End: 26-08-8185VYF W Auto Differential panel - BloodCBC auto differential Lab Routine Chronic systolic heart failure ([facility]) 1 Occurrences starting until 06/17/2025ProWadsworth-Rittman Hospitalca Health SystemComment on above:1 Occurrences starting 06/17/2024 until 06/17/2025EP INVASIVEEP INVASIVE Complete heart block [facility] SystemIonized calciumProUniversity Hospitals Port[facility] Medical Center SystemMagnesium [Mass/volume] in Serum or PlasmaProShelby Baptist [facility] Center Health System End: 18-53-0894Ffcwgzojy [Mass/volume] in Serum or PlasmaMagnesium Lab Routine Chronic systolic heart failure ([facility]) 1 Occurrences starting 06/17/2024 until 06/17/2025ProShelby [facility] Center Health SystemComment on above:1 Occurrences starting 06/17/2024 until 06/17/2025Patient EducationIvermectin (Systemic) Acute Psychosis (DC) Scabies (DC) [facility] Behavioral Health DC InstructionsThe [facility] Hospital [facility]tr Work Phone: Patient referralThe [facility] Hospital [facility]tr Work Phone: Phosphate [Mass/volume] in Serum or PlasmaSt. Anthony's Hospitalca Health System End: 39-46-6060Xqowlpdme [#/volume] in BloodProWadsworth-Rittman Hospitalca Health System End: 02-59-5624KtaDvwwpf Cardiac RehabProMedica Work Phone: Comment on above:1 Occurrences starting 06/17/2024 until 12/18/2024 End: 24-58-8032Svafdlt & INRAshtabula County Medical Center System End: 31-72-5139Xqlleszf I, High Sensitivity 1 HourProMedica Work Phone: Immunizations Immunization DateImmunizationNotesCare NjdbfgswMhwpzijj84-28-3959gdpqpux toxoid, reduced diphtheria toxoid, and acellular pertussis vaccine, adsorbedTa-Reina CuffieAshtabula County Medical Center System Payers DatePayer CategoryPayerPolicy [id number] Health [id number] Medicare (Managed Care)[facility] [id number] 2023Medicare HMO [id number] [id number] [id number] 2022Medicaid [id number] [id number] 2022 [id number]-[id number]-h346-43446[id number] 2.16.840.1.713246.3.579.[id number] 2.16.840.1.957560.3.579.[id number] 2.16.840.1.564642.3.579.2.[id number] 2.16.840.1.286736.3.579.2.450214-77-4423Pfvvigo698951314 2.16.840.1.381331.3.579.2.744267-03-7998Hgivaco545234953 2.16.840.1.843683.3.579.2.746192-10-6840Zyzgypn172472337 2.16.840.1.119896.3.579.2.365235-67-5724Oxwmema634198781 2.16.840.1.756750.3.579.2.985606-52-8118Tobqeda402855317 2.16.840.1.488442.3.579.2.736588-65-9136Xyphmwg566392121 2.16.840.1.303283.3.579.2.607844-08-9923Stfspkp524886277 2.16.840.1.446340.3.579.2.131348-61-6424Sgqlhnp726155217 2.16.840.1.016321.3.579.2.103609-35-1197Tddcadn511852681 2.16.840.1.828192.3.579.2.21193-84-3207Icordqk435354117 2.16.840.1.343868.3.579.2.[id number] 2.16.840.1.306342.3.579.[id number] 2..840.1.215451.3.579.2.14288-91-0528Ulukura480758959 2..840.1.107555.3.579.2.05303-91-0642Hgbflib417349302 2.16.840.1.614250.3.579.2.131203-95-9310Ktgfekv676269465 2..840.1.850856.3.579.2.220973-47-7243Onhewwi682571668 2..840.1.935270.3.579.2.414135-41-6745Pgmfnsw501203834 2..840.1.883601.3.579.2.759194-29-1053Nqyyslq600165239 2..840.1.969650.3.579.2.712197-65-1336Tpuobcf488968186 2..840.1.962780.3.579.2.989436-57-3174Zrtpnsv894122034 2..840.1.948589.3.579.2.240374-48-8721Ykjissa444704131 2..840.1.068883.3.579.2.729324-16-6506Xylbcpf946387820 2..840.1.533730.3.579.2.1025Hzhosbz39409749 2..840.1.723960.3.579.2.531 Social History DateTypeDetailFacilityStart: 94-53-9520Wetqbdk smoking status [facility]ASmiley (finding)[facility] Hospitaltart: 06-09-6473Mue Assigned At [facility] Healthtart: 02-28-2022 End: 78-61-4370Zxlwizq smoking status [facility] tobacco dailyProMedica Health SystemHistory of tobacco useCigarette SmokerProMedica Health SystemStart: 02-28-2022 End: 32-05-3311Nymvcwz use and exposureSmokeless tobacco non-userAshtabula County Medical Center SystemStart: 07-29-2022 End: 15-98-2244Acndotpai beverage intakeCurrent drinker of alcohol (finding) [facility] Centertart: 11-21-2017 End: 43-38-4754Bwfcgyl of Social functionAshtabula County Medical Center SystemStart: 11-21-2017 End: 76-67-3088Bphmwxc Use Disorder Identification Test - Consumption [AUDIT-C] [facility] HospitalFrequency of Alcohol ConsumptionNeverSampson Regional Medical Centertart: 40-29-6966Lfsnnsw CommentPatient states she drinks a lot.[facility] Centertart: 48-03-0181Cot assigned at birthNot on fileSampson Regional Medical Centertart: 56-63-8840WsjDtwxiv (finding)[facility] HospitalTobacco smoking status NHISTobacco smoking consumption unknownNOMS Healthcare Medical Equipment Procedure CodeEquipment CodeEquipment Original TextEquipment IdentifierDates ()[id number] FDAStart: 05-07-2024 ()[id number], [id number] FDAStart: 05-09-2024 Goals DatePatient GoalDesired Activity/StatePersonal health goalComment on above: Evaluation of progress towards goal: Patient plans for a safe discharge. Functional Status EdfbZisoahxtitUhlaraOwwosesq20-93-1399Dkpagmammn statusPatient at Baseline [facility] Work Phone: [facility] Mental Status CirvXkifxdjvouEdnkxjOecutzui03-41-1015Owjtgbcgo functionCognitive Status Patient at BaselineC[facility] Work Phone: [facility] Clinical Notes 07-07-2021 to 10-07-2024 Note Date & UffzUymsIfclsysk54-40-6584 History of Present illness Narrative* Giovanni Hdez MD - 10/07/2024 3:15 PM EDT Alie Briones Date of visit: 10/07/2024 Date of : 1960 Age: 64 y.o. Patient Active Problem List Diagnosis Cervical spondylosis without myelopathy Osteoarthritis of cervical spine HTN (hypertension) CHB (complete heart block) ([facility]) ST elevation myocardial infarction (STEMI) ([facility]) Coronary artery disease involving [place] coronary artery of [place] heart Mixed hyperlipidemia Chronic systolic heart failure ([facility]) Sepsis ([facility]) Ischemic cardiomyopathy Allergies Allergen Reactions Sulfa (Sulfonamide [...] by mouth inthe morning. 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 She is accompanied by her daughter CV [...] regurgitation or stenosis. Mitral Valve: There is bgcrv-tv-knbf regurgitation. There is no evidence of mitral valve stenosis. Tr icuspid Valve: There is trace regurgitation. There is no evidence of tricuspid valve stenosis. STRESS: No results found. HOLTER: No results found. CARDIAC CATH: Cardiac Invasive Result Date: 05/10/2024 Successful staged revascularization of the 80% stenosis of the second obtuse marginal with a 2.25 x15 mm drug-eluting stent with CESAR 3 flow. Previously placed drug-eluting stent in the left anterior descending artery is patent. Recommendations: Continue dual anti-platelet therapy with aspirin 81 mg daily and prasugrel 10 mg daily for 6-12 months followed by single anti-platelet therapy. Continue aggressive risk factor modification. Continue aggressive medical management. Recommend follow-up with primary captain/airline pilot outpatient. Cardiac Invasive Result Date: 05/08/2024 Successful placement of temporary pacing wire for the indication of complete heart block Severe multivessel coronary artery disease Successful placement of 1 drug-eluting stent to proximal to mid LADwith intravascular ultrasound assistance showing well apposed and [...] Cervical disc disorder CHB (complete heart block) ([facility]) 05/07/2024 HTN (hypertension) Hx of scabies Low back pain Lumbosacral disc disease Neck pain Osteoarthritis TMJ (temporomandibular joint syndrome) Past Surgical History: Procedure Laterality Date Cardiac Invasive N/A 05/09/2024 Performed by Gilberto Zepeda MD at [facility] CARDIAC CATH LABS Cardiac Invasive-cors N/A 05/07/2024 Performed by Gilberto Zepeda MD at [facility] CARDIAC CATH LABS SECTION SECTION 1980,,, INJECTION MEDIAL BRANCH NERVE BLOCK: left C34 45 56 Left 03/16/2018 Performed by Manav Rosario MD at [facility] INJECTION MEDIAL BRANCH NERVE BLOCK: left [id number] 45 56 Left 02/12/2018 Performed by Manav Rosario MD at [facility] INJECTION MEDIAL BRANCH NERVE BLOCK: right C34 45 56 Right 09/14/2018 Performed by Manav Rosario MD at [facility] INJECTION MEDIAL BRANCH NERVE BLOCK: right C34 45 56mbb Right 07/23/2018 Performed by Manav Rosario MD at [facility] Insert/replace temporary single lead pacemaker N/A 05/07/2024 Performed by Gilberto Zepeda MD at [facility] CARDIAC CATH LABS Intravascular ultrasound initial vessel N/A 05/07/2024 Performed by Gilberto Zepeda MD at [facility] CARDIAC CATH LABS ORTHOPEDIC SURGERY Percutaneous coronary intervention N/A 05/07/2024 Performed by Gilberto Zepeda MD at [facility] CARDIAC CATH LABS Percutaneous coronary intervention of OM N/A 05/09/2024 Performed by Gilberto Zepeda MD at [facility] CARDIAC CATH LABS RADIO FREQUENCY ABLATION Right C 3/4, 4/5, 5/6 Right 11/15/2019 Performed by Manav Rosario MD at [facility] RADIO FREQUENCY ABLATION: left C34 45 56rfa Left 04/30/2018 Performed by Manav Rosario MD at [facility] RADIOFREQUENCY ABLATION SPINAL: Right C 4/5 5/6 Left 07/08/2022 Performed by Manav Rosario MD at [facility] RADIOFREQUENCY ABLATION SPINAL: right C 4/5 5/6 Right 07/29/2022 Performed by Manav Rosario MD at [facility] Revascularization/drug eluting stent/ left anterior descending N/A 05/07/2024 Performed by Gilberto Zepeda MD at [facility] CARDIAC CATH LABS ROTATOR CUFF REPAIR Left Stent drug-eluting/ left circumflex N/A 05/09/2024 Performed by Gilberto Zepeda MD at [facility] CARDIAC CATH LABS TONSILLECTOMY 1967 Family History Problem Relation Age of Onset [...] that she is uninterested in tobacco cessation atthis time --patient states that she is not [...] Return for 6-10 weeks LOBITO Ok. PCP: [facility] Casi Referring Physician: Giovanni Hdez MD [address] [place] [address] documented in this encounterOhioHealth Grady Memorial Hospital08-25-2025 Instructions* Patient Instructions* Arlin Rodriguez CMA - 10/07/2024 3:15 PM EDT Are You Ready To Kick The Habit? Free Tobacco Cessation Resources [facility] Services [facility] Tobacco Treatment Centers provide all employees with free tobacco cessation services that include: Counseling to understand nicotine addiction Education about medications that can help you successfully quit Assistance with developing a plan to quit Call to set up an individual appointment or find out when group classes will be held: [facility]: [phone] [facility]: [phone] [facility]: [phone] [facility]: [phone] Quit Smoking Action Plan and Resources [facility] offers an eight-week, online smoking cessation plan to all [facility] employees, regardless of whether [place] is your medical insurance provider. Go to [email or web address] and click the Health Risk Assessment and Resources link to get started. In the Lgiaf2Twcjuh menu, click Action Plans instead of Health Risk Assessment to access the Quit Smoking Action Plan. Additional smoking cessation resources are also available to all [facility] employees on the Bxmwe3Ikndgf web page at www.[employer]neXus Solutions/quitsmoking. [place] Tobacco Cessation Program If [place] is your medical insurance provider, there are more free resources available to you, including: No copays or deductibles on local tobacco cessation counseling services to help you quit Prescription assistance for tobacco cessation medications to help you quit For details about the tobacco cessation program available to [place] members, go to www.ADR Software.Derivix (Search: Tobacco Cessation Program). [place] Tobacco Quit Line 1-862-HTJI-NOW ( ) is a toll-free, telephonic service that helps [place] residents quit smoking and using tobacco. It is staffed by experts who tailor a quit plan for you and provide you with advice. [place] Tobacco Quit Line 4-763-UWBM-NOW ( ) is a toll-free, telephonic service that helps [place] residents quit smoking and using tobacco. It is staffed by experts who tailor a quit plan for you and provide you with advice. Two weeks of nicotine replacement therapy may be provided at no charge, if needed. Additional Resources These national organizations also offer free information and resources to help you quit tobacco: [place] [employer]--www.cancer.org/healthy/stayawayfromtobacco [place] Heart [employer]--www.heart.org (Search: Quit Smoking) Centers for Disease Control and Prevention--www.cdc.gov/tobacco [place] Lung [employer]--www.lungusa.org documented in this encounterSt. Anthony's HospitalG5 [id number] Miscellaneous Notes* Telephone Encounter - Arlin Rodriguez CMA - 10/04/2024 11:12 AM EDT Left message for patient to remind them to bring their most current medication list with them to their appointment. documented in this encounterOhioHealth Grady Memorial Hospital08-22-2025 Telephone encounter Note* Telephone Encounter - Arlin Rodriguez CMA - 10/04/2024 11:12 AM EDT Left message for patient to remind them to bring their most current medication list with them to their appointment. [facility]08-18-2025 Miscellaneous Notes* Telephone Encounter - Rama Rankin - 09/30/2024 1:25 PM EDT Called Alie regarding the colonic diverticular abscess referral that our office received from Dr Monteiro, left a message on her voicemail to call the office back. Patient has [employer] and patient has NO OUT OF NETWORK BENEFITS and if Medicare doesn't allow anything Medicaid will not pay for anything. Alie will have to contact [employer] to see who is in network for her to see. * Telephone Encounter - Rama Rankin - 09/30/2024 1:25 PM EDT Called Alie regarding the referral that our office received, left a message to call the office back. She doesn't have any out of network benefits, she will have to call [employer] to find someone in network to go to. * Telephone Encounter - Rama Rankin - 09/30/2024 1:25 PM EDT Called Alie regarding the referral that our office received, left a message on her voicemail to call the office back. documented in this encounterOhioHealth Grady Memorial Hospital08-18-2025 Telephone encounter Note* Telephone Encounter - Rama Rankin - 09/30/2024 1:25 PM EDT Called Alie regarding the colonic diverticular abscess referral that our office received from Dr Monteiro, left a message on her voicemail to call the office back. Patient has [employer] and patient has NO OUT OF NETWORK BENEFITS and if Medicare doesn't allow anything Medicaid will not pay for anything. Alie will have to contact [employer] to see who is in network for her to see. [facility]08-18-2025 Telephone encounter Note* Telephone Encounter - Rama Rankin - 09/30/2024 1:25 PM EDT Called Alie regarding the referral that our office received, left a message to call the office back. She doesn't have any out of network benefits, she will have to call [employer] to find someone in network to go to. [facility]08-18-2025 Telephone encounter Note* Telephone Encounter - Rama Rankin - 09/30/2024 1:25 PM EDT Called Alie regarding the referral that our office received, left a message on her voicemail to call the office back. [facility]08-01-2025 Miscellaneous Notes* Telephone Encounter - Richi Smith RN - 09/13/2024 8:23 PM EDT OC 132 Jacqueline from [facility] to clarify anticoagulant order Call placed to Dr Brower and warm transfer to [facility] documented in this encounterOhioHealth Grady Memorial Hospital08-01-2025 Telephone encounter Note* Telephone Encounter - Richi Smith RN - 09/13/2024 8:23 PM EDT OC 132 Jacqueline from [facility] to clarify anticoagulant order Call placed to Dr Brower and warm transfer to [facility]07-30-2025 Miscellaneous Notes* Telephone Encounter - Angela Rendon RN - 09/11/2024 10:17 AM EDT LM on patients phone wanting to know what status of Life Vest is. Asked to return call with update documented in this encounterOhioHealth Grady Memorial Hospital07-30-2025 Telephone encounter Note* Telephone Encounter - Angela Rendon RN - 09/11/2024 10:17 AM EDT LM on patients phone wanting to know what status of Life Vest is. Asked to return call with update [facility]05-05-2025 Miscellaneous Notes* Telephone Encounter - Monica Sharif RN - 06/17/2024 3:14 PM EDT Patient in office today with KM. She [...] Administration [employer] Zoll #: [phone] Zoll * Telephone Encounter - Alena Danielle RN - 06/17/2024 3:14 PM EDT Zoll called pt today.slm documented in this encounterOhioHealth Grady Memorial Hospital05-05-2025 Telephone encounter Note* Telephone Encounter - Monica Sharif RN - 06/17/2024 3:14 PM EDT Patient in office today with KM. She [...] Administration [employer] Zoll #: [phone] Zoll [place] [facility])05-05-2025 Telephone encounter Note* Telephone Encounter - Alena Danielle RN - 06/17/2024 3:14 PM EDT Zoll called pt today.slm 2359 Media [id number] History of Present illness Narrative* Teagan Carrillo PA-C - 06/17/2024 2:00 PM EDT Alie Tolentino Mynor Date of visit: 06/17/2024 Date of : 1960 Age: 63 y.o. Patient Active Problem List Diagnosis Cervical spondylosis without myelopathy Osteoarthritis of cervical spine HTN (hypertension) CHB (complete heart block) ([facility]) ST elevation myocardial infarction (STEMI) ([facility]) Coronary artery disease involving [place] coronary artery of [place] heart Mixed hyperlipidemia Chronic systolic heart failure ([facility]) Allergies Allergen Reactions Sulfa (Sulfonamide Antibiotics) Itching [...] (100 mg total) by mouth 3 (three) timesa day as needed for cough. dapagliflozin propanediol [...] by mouth in the morning. 90 tablet3 spironolactone (ALDACTONE) 25 mg tablet Take 1 tablet (25 mg total) by mouth in the morning. 90 tablet 3 valsartan (DIOVAN) 40 mg tablet Take 1 tablet (40 mg total) by mouth in the morning and 1 tablet (40 mg total) before bedtime. 90 tablet 3 No current facility-administered medications for this visit. Chief Complaint Patient presents with Hospital Follow-up HOSP FU [facility] S/P CATH History of Present Illness Patient is a 63-year-old female, or presented to [facility] after continued falls, patient was found to be in complete heart block with with junctional escapes with a left bundle pattern 39 beats perminute. Prior to this patient had multiple presyncopal [...] Cervical disc disorder CHB (complete heart block) ([facility]) 05/07/2024 HTN (hypertension) Hx of scabies Low back pain Lumbosacral disc disease Neck pain Osteoarthritis TMJ (temporomandibular joint syndrome) No data recorded No data recorded No data recorded Past Surgical History: Procedure Laterality Date Cardiac Invasive N/A 05/09/2024 Performed by Gilberto Zepeda MD at [facility] CARDIAC CATH LABS Cardiac Invasive-cors N/A 05/07/2024 Performed by Gilberto Zepeda MD at [facility] CARDIAC CATH LABS SECTION SECTION 1980,,, INJECTION MEDIAL BRANCH NERVE BLOCK: left C34 45 56 Left 03/16/2018 Performed by Manav Rosario MD at [facility] INJECTION MEDIAL BRANCH NERVE BLOCK: left c34 45 56 Left 02/12/2018 Performed by Manav Rosario MD at [facility] INJECTION MEDIAL BRANCH NERVE BLOCK: right C34 45 56 Right 09/14/2018 Performed by Manav Rosario MD at [facility] INJECTION MEDIAL BRANCH NERVE BLOCK: right C34 45 56mbb Right 07/23/2018 Performed by Manav Rosario MD at [facility] Insert/replace temporary single lead pacemaker N/A 05/07/2024 Performed by Gilberto Zepeda MD at [facility] CARDIAC CATH LABS Intravascular ultrasound initial vessel N/A 05/07/2024 Performed by Gilberto Zepeda MD at [facility] CARDIAC CATH LABS ORTHOPEDIC SURGERY Percutaneous coronary intervention N/A 05/07/2024 Performed by Gilberto Zepeda MD at [facility] CARDIAC CATH LABS Percutaneous coronary intervention of OM N/A 05/09/2024 Performed by Gilberto Zepeda MD at [facility] CARDIAC CATH LABS RADIO FREQUENCY ABLATION Right C 3/4, 4/5, 5/6 Right 11/15/2019 Performed by Manav Rosario MD at [facility] RADIO FREQUENCY ABLATION: left C34 45 56rfa Left 04/30/2018 Performed by Manav Rosario MD at [facility] RADIOFREQUENCY ABLATION SPINAL: Right C 4/5 5/6 Left 07/08/2022 Performed by Manav Rosario MD at [facility] RADIOFREQUENCY ABLATION SPINAL: right C 4/5 5/6 Right 07/29/2022 Performed by Manav Rosario MD at [facility] Revascularization/drug eluting stent/ left anterior descending N/A 05/07/2024 Performed by Gilberto Zepeda MD at [facility] CARDIAC CATH LABS ROTATOR CUFF REPAIR Left Stent drug-eluting/ left circumflex N/A 05/09/2024 Performed by Gilberto Zepeda MD at [facility] CARDIAC CATH LABS TONSILLECTOMY 1970 Family History [...] Ht 152.4 cm (5') Wt 46.7 kg (103lb) BMI 20.12 kg/m Orders Placed or Reconciled [...] Reorder IMPRESSIONS/PLAN 1. Coronary artery disease involving [place] coronary artery of [place] heart without angina pectoris -in the setting [...] Carrillo PA-C 06/17/24 1504 documented in this encounterOhioHealth Grady Memorial Hospital05-05-2025 Instructions* Patient Instructions* Teagan Carrillo PA-C - 06/17/2024 2:00 PM EDT Are You Ready To Kick The Habit? Free Tobacco Cessation Resources [facility] Services [facility] Tobacco Treatment Centers provide all employees with free tobacco cessation services that include: Counseling to understand nicotine addiction Education about medications that can help you successfully quit Assistance with developing a plan to quit Call to set up an individual appointment or find out when group classes will be held: [facility]: [phone] [facility]: [phone] [facility]: [phone] [facility]: [phone] Quit Smoking Action Plan and Resources [facility] offers an eight-week, online smoking cessation plan to all [facility] employees, regardless of whether [place] is your medical insurance provider. Go to [email or web address] and click the Health Risk Assessment and Resources link to get started. In the EyeSee360 menu, click Action Plans instead of Health Risk Assessment to access the Quit Smoking Action Plan. Additional smoking cessation resources are also available to all [facility] employees on the EyeSee360 web page at www.CUneXus Solutions/quitsmoking. [place] Tobacco Cessation Program If [place] is your medical insurance provider, there are more free resources available to you, including: No copays or deductibles on local tobacco cessation counseling services to help you quit Prescription assistance for tobacco cessation medications to help you quit For details about the tobacco cessation program available to [place] members, go to www.ADR Software.Derivix (Search: Tobacco Cessation Program). [place] Tobacco Quit Line 3-433-PIGX-NOW ( ) is a toll-free, telephonic service that helps [place] residents quit smoking and using tobacco. It is staffed by experts who tailor a quit plan for you and provide you with advice. [place] Tobacco Quit Line 6-053-ZYMC-NOW ( ) is a toll-free, telephonic service that helps [place] residents quit smoking and using tobacco. It is staffed by experts who tailor a quit plan for you and provide you with advice. Two weeks of nicotine replacement therapy may be provided at no charge, if needed. Additional Resources These national organizations also offer free information and resources to help you quit tobacco: [place] [employer]--www.cancer.org/healthy/stayawayfromtobacco [place] [employer]--www.heart.org (Search: Quit Smoking) Centers for Disease Control and Prevention--www.cdc.gov/tobacco [place] Lung [employer]--www.lungusa.org Metoprolol, valsartan, farxiga, spirolactone all [...] Use only as directed. documented in this encounterOhioHealth Grady Memorial Hospital05-02-2025 Miscellaneous Notes* Telephone Encounter - Juana Eden CMA - 06/14/2024 8:30 AM EDT Left message for patient to remind them to bring their most current medication list with them to their appointment. documented in this encounterOhioHealth Grady Memorial Hospital05-02-2025 Telephone encounter Note* Telephone Encounter - Juana Eden CMA - 06/14/2024 8:30 AM EDT Left message for patient to remind them to bring their most current medication list with them to their appointment. [facility]04-17-2025 History of Present illness Narrative* Art Blue, PhD - 05/30/2024 9:00 AM EDT Images from the original note [...] Regarding physical activity, patient reported attending the [facility]. Family says that this is not [...] past year. No other reported substance use. [place] language [place]. Completed 10 years of formal education and [...] of stories. Easily frustrated when not doing well.Very tired as she wakes around 3am every day. Performance validity testing revealed variable levelsof engagement throughout. As a result, findings are [...] and poor organization. Motor/Speed of Processing: Left-handed. 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 Generative naming to phonemic cues <1st %ile,8th %ile to semantic cues. Confrontation naming 12th [...] evaluation reveals variable levels of engagement throughout. Asa result, findings are interpreted with caution and [...] lists, date books, calendars, and pocket-size recorders forinformation that must be remembered. A smartphone is [...] of this individual. Please contact me with [employer] at [phone]. documented in this encounterThree Rivers He[id number] Miscellaneous Notes* Telephone Encounter - Kristen Lainez - 05/21/2024 8:42 AM EDT Received new patient referral. Please call patient to schedule a new patient appointment for Altered mental status, unspecified altered mental status type IS THIS DUE TO AN ACCIDENT? IS THIS WORKER'S COMP? PLEASE VERIFY IF THIS IS WORKERS COMP AND DOCUMENT (We do not accept any new workers comp cases) WHAT INSURANCE? HAVE YOU EVER BEEN SEEN BY A NEUROLOGIST BEFORE? * Telephone Encounter - Melissa Deal - 05/21/2024 8:42 AM EDT 1st attempt - Patient will call us at a later date to schedule. Referred by: ANICETO GERMAN Dx:Altered mental status, unspecified altered mental status type Thank you! documented in this encounterOhioHealth Grady Memorial Hospital04-08-2025 Telephone encounter Note* Telephone Encounter - Kristen Lainez - 05/21/2024 8:42 AM EDT Received new patient referral. Please call patient to schedule a new patient appointment for Altered mental status, unspecified altered mental status type IS THIS DUE TO AN ACCIDENT? IS THIS WORKER'S COMP? PLEASE VERIFY IF THIS IS WORKERS COMP AND DOCUMENT (We do not accept any new workers comp cases) WHAT INSURANCE? HAVE YOU EVER BEEN SEEN BY A NEUROLOGIST BEFORE? [facility] [employer] [id number] Telephone encounter Note* Telephone Encounter - Melissa Deal - 05/21/2024 8:42 AM EDT 1st attempt - Patient will call us at a later date to schedule. Referred by: ANICETO GERMAN Dx:Altered mental status, unspecified altered mental status type Thank you! [facility] [employer] [id number] History of Present illness Narrative* Art Blue, PhD - 05/20/2024 2:30 PM EDT Images from the original note [...] Regarding physical activity, patient reported attending the [facility]. Family says that this is not [...] over the past year. No other reported substanceuse. [place] language [place]. Completed 10 years of formal education and [...] of this individual. Please contact me with anyquestions at [phone]. documented in this encounterThree Rivers [id number] Hospital course Narrative * Viviana Mccloud MD - 05/18/2024 12:55 PM EDT Images from the original note were not included. [facility] [address] [facility] [address] [facility] [id number] Hospital Medicine Discharge Summary Patient: Alie Briones Date of : 1960 Room: [facility]/ Encounter date: 05/18/24 Hospital Day: 12 DATE OF ADMISSION: 05/07/2024 DATE OF DISCHARGE:05/18/2024 DISCHARGE DIAGNOSES Principal Problem: CHB (complete heart block) ([facility]) Active Problems: HTN (hypertension) ST elevation myocardial infarction (STEMI) ([facility]) Coronary artery disease involving [place] coronary artery of [place] heart Mixed hyperlipidemia [facility]ANT[facility] Neurology Nephrology Cardiology PCP: [facility] [place] PROCEDURES Cardiac cath, PCI GARETT X2 HOSPITAL COURSE SUMMARY Alie Briones is a 63 y.o. female with past medical history significant for hypertension and hyperlipidemia. Patient initially presented to [facility] on 05[facility]07[facility]2024 for evaluation after a fall with associated crushing chest pains. In the ER, EKG showed concerns for complete heart block for which Cardiology was consulted and patient was transferred to [facility] for further management under their service. On arrival to [facility] a repeat EKG revealed anterior lead ST segment elevations. 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 Patient s/p GARETT to [...] PCI/GARETT OM2 on 05/09/2024. Her ejection fraction wasfound to be 20-25%. Cardiology was following, started [...] patient's initial fall. Outpatient orders placed, outpatient referralto Neurology placed. New medications at discharge include aspirin, Farxiga, folic acid, prn Ativan, Toprol, Effient, Senokot, Aldactone, vitamin B1, Diovan, her Lipitor dose was increased. She was stopped on amlodipine. Discussed with the attending MD, patient is stable for discharge at this time to alf facility. Discharge Day Progress Note 05/18/24 Hemodynamically [...] cm (5') Wt 41 kg (90 lb 6.2oz) SpO2 97% BMI 17.65 kg/m Temp: [36.6 [...] acquired with electrodes placed according to the [id number] electrode placement system. The EEG was acquired andreviewed using multiple, reformattable montages. A single EKG channel was recorded for cardiac rhythm monitoring. Technical description: This EEG is recorded during sleep. No wakefulness was recorded. Background is composed of 5-10 V diffuse beta frequency intermixed with 20-30 V delta frequency. The re is no alpha frequency or posterior dominant rhythm. No epileptiform abnormalities are noted inthe form of spikes or sharp waves. No [...] of intermittent seizures. Kat Marquez M.D., Ph.D. Rn Lactation Consultant PA Neurology Cardiac Invasive Result Date: 05/10/2024 Narrative: [...] aggressive medical management. Recommend follow-up with primary captain/airline pilot outpatient. Echo limited W/O contrast Result Date: 05/08/2024 Narrative: Left Ventricle: Left ventricle appears normal in size. Systolic function is moderately to severely decreased with an ejection fraction of 30- 35%. Aortic Valve: There is no regurgitation orstenosis. Mitral Valve: There is byayq-[id number] regurgitation. There is no evidence of mitral valve stenosis. Tricuspid Valve: There is trace regurgitation. There is no evidence of tricuspid valve stenosis. Cardiac Invasive Result Date: 05/08/2024 Narrative: Successful placement of temporary pacing wire for the indication of complete heart blockSevere multivessel coronary artery disease Successful placement of 1 drug-eluting stent to proximalto mid LAD with intravascular ultrasound assistance showing [...] fracture or dislocation. There is slight anterolisthesis C3- C4. The spinal canal is patent. No prevertebral [...] on 05/07/2024 2:42 PM DISCHARGE INSTRUCTION Disposition: [facility] facility Condition: Stable Activity: activity as tolerated Diet: Adult diet Regular Texture; No Added Salt (3-4 gm Sodium); Low Fat/Low Cholesterol; Fluid Restriction 1500 mL Adult diet Follow up: [facility] within 7-14 days. Cardiology Neurology EP [...] this patient. MARCIAL PALACIOS 05/18/2024 12:55 PM [facility] Internal Medicine 7AM-7PM & 7PM-7AM: EpicChat or page through On-Call Finder. MARCIAL Palacios 05/18/24 1302 Patient seen and examined Interviewed and any questions answered All labs , xrays reviewed Clinical assessment and decisions made by myself in entirety Discussed case with team Agree with above assessment and plan Electronically signed by: VIVIANA MCCLOUD MD, 05/18/2024 3:48 PM [facility] [address] [place] [address] (P): [phone] (F): [phone] documented in this encounterOhio[facility] Miscellaneous Notes* Discharge Planning Note - Romi Jacobs RN - 05/18/2024 11:33 AM EDT DISCHARGE PLANNING NOTE Authorization for SNF approved per [facility]. [facility] able to accepttoday. Tasked transport for 3pm, await confirmation. CN updated patient and 2nd IMM given. CN also contacted patient's daughter, Tonny, and updated her on discharge today. Patient and daughter agreeable to plan. Discharge packet complete. - Romi Jacobs RN 05/18/24 11:35 AM * Discharge Planning Note - Tyra Botello - 05/18/2024 11:33 AM EDT DISCHARGE PLANNING NOTE BLS transport to [facility] on 05/18/24 at 1500 hours via PTN. Confirmed in [facility]. * Discharge Planning Note - Elen Solomon - 05/18/2024 8:58 AM EDT DISCHARGE PLANNING NOTE Prior Auth approved for admission to : [facility] (P#: ; F#: ) Approval # [id number] Valid for Dates: 05/17/2024-05/22/2024 * Plan of Care - Reema Parks RN - 05/17/2024 10:07 PM EDT Problem: Pain Goal: Patient goal is pain score less than 4, able to rest, and participant in treatment plan as appropriate Description: INTERVENTIONS: 1. Encourage patient or legal billing customer service representative to report early pain and ask [...] per policy 9. Teach patient or legal billing customer service representative interventions for comforting Outcome: Progressing Note: [...] at the bedside 7. Instruct patient/ patient billing customer service representative about use of safety devices 8. Include patient/ patient billing customer service representative in decisions related to safety Outcome: Progressing Note: Evaluation of progress towards goal: Pt remains free from falls and injuries since beginning of shift. Call light within reach. Bed rails up x3. Orientation reviewed. Hourly rounded maintained.Will continue to maintain safety until end of hospital stay. Problem: Knowledge Deficit Goal: Patient/patient billing customer service representative demonstrates understanding of disease process, treatment plan,medications, and discharge instructions Description: INTERVENTIONS 1. Complete learning assessment and assess knowledge base 2. Provide teaching at level of understanding 3. Provide teaching via preferred learning method(s) Outcome: Progressing Note: Evaluation of progress towards goal: Patient educated on daily plan of care and current medications. Patient verbalizes understanding and denies any questions at this time. * Discharge Planning Note - Ana María Simeon - 05/17/2024 3:31 PM EDT DISCHARGE PLANNING NOTE [facility]erral updates to [facility] (P#: ; F#: ) * Discharge Planning Note - Elen Solomon - 05/17/2024 2:54 PM EDT DISCHARGE PLANNING NOTE Prior auth submitted to: [employer] Via: availity [facility] (P[facility] ; F#: ) Ref # [id number] * Discharge Planning Note - TURNER Benz - 05/17/2024 2:20 PM EDT DISCHARGE PLANNING NOTE [facility] Task to [facility] to send clinical updates and to submit for auth. Chandaft a message for pt's dtr to update her on plan. - TURNER Benz 05/17/24 3:25 PM * Plan of Care - Mila Ward - 05/17/2024 11:27 AM EDT Problem: Pain Goal: Patient goal is pain score less than 4, able to rest, and participant in treatment plan as appropriate Description: INTERVENTIONS: 1. Encourage patient or legal billing customer service representative to report early pain and ask [...] per policy 9. Teach patient or legal billing customer service representative interventions for comforting Outcome: Progressing Note: [...] at the bedside 7. Instruct patient/ patient billing customer service representative about use of safety devices 8. Include patient/ patient billing customer service representative in decisions related to safety Outcome: [...] hygiene technique. 7. Identify and instruct patient/patient billing customer service representative in use of appropriate isolation precautionsfor identified infection/symptoms. 8. Provide and discuss with patient/patient billing customer service representative on educational MDRO sheet. 9. Encourage and monitor nutritional status daily and consult foam rubber curer if indicated. 10. Implement neutropenic guidelines as [...] RN - 05/17/2024 11:52 AM EDT Karina Yosuif RN * Discharge Planning Note - TURNER Benz - 05/17/2024 10:45 AM EDT DISCHARGE PLANNING NOTE [facility] unable to accept. Nishant called pt's dtr and she would prefer [facility], await response from them. [facility] if that [facility] the only available option, she reports the distance from family is far. Await response from [facility], they are just waiting on lifevest cost. Sw to follow. - TURNER Benz 05/17/24 3:24 PM * PT/OT/MULLING MACHINE OPERATOR - Lilly Orozco CCC-MULLING MACHINE OPERATOR - 05/17/2024 10:19 AM EDT Speech Therapy Speech & Language Cognitive Evaluation and Treatment Note Impressions Receptive Language: Within Functional Limits Expressive Language: Within Functional Limits Cognitive Linguistic: Moderate Recommendations Discharge Recommendations: [facility] facility Rehab Therapy Type: Individual treatment Plan [...] continue to follow along. Prognosis Services: Skilled MULLING MACHINE OPERATOR services to address the above deficits Prognosis/Potential: [...] to Within Functional Limits Attention: Exceptions to [facility] Alternating Attention: Moderate Divided Attention: Moderate Selective Attention: Moderate Sustained Attention: Moderate Memory: Exceptions to [place] Daily Routines: Mild Long-term Memory: Mild People Encountered: Moderate Immediate Memory: Moderate Short-term Memory: Moderate Working Memory: Moderate Problem Solving: Exceptions to [facility] Complex Functional Tasks: Moderate Managing Finances: Mild Verbal Reasoning Skills: Moderate Abstract Reasoning: Mild Inductive Reasoning: Mild Deductive Reasoning: Mild Safety/Judgement: Exceptions to [facility] Complex Functional Tasks: Moderate Novel Situations: Mild [...] Problem: Cognitive Linguistic Dates: Start: 05/17/24 Disciplines: MULLING MACHINE OPERATOR Goal: LTG: Patient will display functional cognitive-linguistic skills to demonstrate appropriate communication and safety within daily activities in a functional living environment Dates: Start: 05/17/24 Expected End: 06/16/24 Disciplines: MULLING MACHINE OPERATOR Goal: STG: Patient will demonstrate sustained attention by maintaining focus during a task for 10 minutes with minimal assistance Dates: Start: 05/17/24 Expected End: 06/16/24 Disciplines: MULLING MACHINE OPERATOR Goal: STG: Patient will demonstrate alternating attention by shifting the focus of attention between tasks/activities/ideas with minimal assistance 90% of the time Dates: Start: 05/17/24 Expected End: 06/16/24 Disciplines: MULLING MACHINE OPERATOR Goal: STG: Patient will describe/demonstrate/initiate use of 3 memory strategies with minimal cueing Dates: Start: 05/17/24 Expected End: 06/16/24 Disciplines: MULLING MACHINE OPERATOR Problem: High Level Language Dates: Start: 05/17/24 Disciplines: MULLING MACHINE OPERATOR Goal: LTG: Patient will demonstrate use of self-awareness, goal setting, planning, initiation, self-monitoring and problem solving during daily activities to improve safety and awareness in a functional living environment Dates: Start: 05/17/24 Expected End: 06/16/24 Disciplines: MULLING MACHINE OPERATOR Goal: STG: Patient will provide 3 appropriate solutions to problems of daily living with 90% accuracy with minimal cueing Dates: Start: 05/17/24 Expected End: 06/16/24 Disciplines: MULLING MACHINE OPERATOR Goal: STG: Patient will demonstrate functional problem solving and safety awareness with 90% accuracy in daily living tasks in order to increase safe interactions with environment and decrease assistance from caregivers Dates: Start: 05/17/24 Expected End: 06/16/24 Disciplines: MULLING MACHINE OPERATOR Goal: STG: Patient will complete simple to complex organization, scheduling, planning and reasoningtasks to improve problem solving and safety awareness with 90% accuracy with minimal cueing Dates: Start: 05/17/24 Expected End: 06/16/24 Disciplines: MULLING MACHINE OPERATOR Problem: Pragmatics Dates: Start: 05/17/24 Disciplines: MULLING MACHINE OPERATOR Goal: LTG: Patient will demonstrate appropriate social interaction skills in routine daily living activities to communicate basic social and medical needs in a functional living environment Dates: Start: 05/17/24 Expected End: 06/16/24 Disciplines: MULLING MACHINE OPERATOR Goal: STG: Patient will maintain/extend topic for turns in unstructured/structured topic in 1:1/small group conversation via statements and questions with minimal cueing per session Dates: Start: 05/17/24 Expected End: 06/16/24 Disciplines: MULLING MACHINE OPERATOR Speech Therapy Care Plan (Resolved) There are no resolved problems. Principal Problem: CHB (complete heart block) ([facility]) Active Problems: HTN (hypertension) ST elevation myocardial infarction (STEMI) ([facility]) Coronary artery disease involving [place] coronary artery of [place] heart Mixed hyperlipidemia * PT/OT/MULLING MACHINE OPERATOR - Brandt Tucker, Student OT - 05/17/2024 9:59 AM EDT Occupational Therapy Treatment Discharge Recommendations OT Recommendations : Long-Term Facility SNF/ECF Comments: SNF is recommended due [...] None Scoring Daily Activity Raw Score: 18 [facility] G Code Modifier: CK OT Treatment/Interventions: [...] Early mobility, pass Equipment: Gait belt, RW Telemetry/Certification Officer: Yes Other Cardiac Monitoring Devices: Cardiac Life [...] exhibits poor short term memory and requires repeatedcueing for redirection to task. Pt also exhibits [...] VCs for proper hand placement and CGA forstability upon standing. Gait Gait Assistance: Contact guard assist Assistive Device: Rolling walker Gait Distance: 70' x2 +10' Limiting Factors to Gait: Fatigue, Weakness Other: Pt completed functional mobility with use of RW and CGA for stability. Pt required increasedtime and repeated cueing for positioning with RW, however, pt exhibited poor follow through and walked with walker extended in front of her. Balance Sitting Balance: Static: Good Sitting Balance: Dynamic: Good Standing Balance: Static: Fair Standing Balance: Dynamic: Fair Other: Pt sat unsupported in chair while completing exercises, but required use of RW upon standingfor BUE support. 05/17/24 0843 UE ROM UE [...] Brandt Tucker, Student OT Progressing 05/15/24 1153 JESSIE Agosto Progressing 05/13/24 1453 JESSIE Campbell Progressing Goal Note filed on 05/13/24 1453 by JESSIE Campbell Evaluation of progress towards goal: Problem: Bed Mobility Dates: Start: 05/11/24 Disciplines: OT Goal: Patient will perform bed mobility with Modified [place] Dates: Start: 05/11/24 Expected End: 06/01/24 Description: Goal Description: Disciplines: OT Outcomes Date/Time User Outcome 05/17/24 0957 Brandt Tucker, Student OT Progressing Problem: Functional Mobility Dates: Start: 05/11/24 Disciplines: OT Goal: Patient will perform functional mobility with Modified [place] Dates: Start: 05/11/24 Expected End: 06/01/24 Description: Goal Description: Disciplines: OT Outcomes Date/Time User Outcome 05/17/24 0957 Brandt Tucker, Student OT Progressing 05/15/24 1153 SHEYLA AgostoA/Ruby Progressing 05/13/24 1453 SHEYLA CampbellA/Ruby Progressing Goal Note filed on 05/13/24 1453 by LOUISA Campbell/Ruby Evaluation of progress towards goal: Problem: Other [...] Campbell/Ruby Progressing Goal Note filed on 05/13/24 145 by LOUISA Campbell/Ruby Evaluation of progress towards [...] Goal Note filed on 05/13/24 145 by LOUISA Campbell/Ruby Evaluation of progress towards goal: Problem: Toilet Transfers Dates: Start: 05/11/24 Disciplines: OT Goal: Patient will perform toilet transfers with Modified [place] Dates: Start: 05/11/24 Expected End: 06/01/24 Description: Goal Description: Disciplines: OT Outcomes Date/Time User Outcome 05/17/2457 Brandt Tucker, Student OT Progressing 05/13/24 1453 LOUISA Campbell/Ruby Progressing Goal Note filed on 05/13/24 1453 by LOUISA Campbell/Ruby Evaluation of progress towards goal: Problem: Transfers Dates: Start: 05/11/24 Disciplines: OT Goal: Patient will perform transfers with Modified [place] Dates: Start: 05/11/24 Expected End: 06/01/24 Description: Goal Description: Disciplines: OT Outcomes Date/Time User Outcome 05/17/24 0957 Brandt Tucker, Student OT Progressing 05/15/24 1153 LOUISA Agosto/Ruby Progressing 05/13/24 1453 LOUISA Campbell/Ruby Progressing Goal Note filed on 05/13/24 1453 by LOUISA Campbell/Ruby Evaluation of progress towards goal: Occupational Therapy Care Plan (Resolved) There are no resolved problems. Principal Problem: CHB (complete heart block) ([facility]) Active Problems: HTN (hypertension) ST elevation myocardial infarction (STEMI) ([facility]) Coronary artery disease involving [place] coronary artery of [place] heart Mixed hyperlipidemia Cosigned by PRIYA Burdick/L at 05/17/2024 2:22 PM EDT Associated attestation - Rakan Gill, OTR/L - 05/17/2024 2:22 PM EDT I have reviewed and agree with this note and education documentation for this visit. * Discharge Planning Note - TURNER Benz - 05/17/2024 8:00 AM EDT DISCHARGE PLANNING NOTE Sw rec'd a phone call from [facility], they will be up to do an onsite and will update if they are able to accept. [facility] to hear back from [facility] regarding billing before they cansay if they are able to accept. - TURNER Benz 05/17/24 10:07 AM * Plan of Care - Nishi Liao RN - 05/16/2024 11:14 PM EDT Problem: Pain Goal: Patient goal is pain score less than 4, able to rest, and participant in treatment plan as appropriate Description: INTERVENTIONS: 1. Encourage patient or legal billing customer service representative to report early pain and ask [...] per policy 9. Teach patient or legal billing customer service representative interventions for comforting Outcome: Progressing Note: [...] at the bedside 7. Instruct patient/ patient billing customer service representative about use of safety devices 8. Include patient/ patient billing customer service representative in decisions related to safety Outcome: [...] hygiene technique. 7. Identify and instruct patient/patient billing customer service representative in use of appropriate isolation precautionsfor identified infection/symptoms. 8. Provide and discuss with patient/patient billing customer service representative on educational MDRO sheet. 9. Encourage and monitor nutritional status daily and consult foam rubber curer if indicated. 10. Implement neutropenic guidelines as needed. Outcome: Progressing Note: Evaluation of progress towards goal: Patient afebrile at this time. Will continue to monitor temp, CBC and other s/s of infection. Problem: Knowledge Deficit Goal: Patient/patient billing customer service representative demonstrates understanding of disease process, treatment plan,medications, and discharge instructions Description: INTERVENTIONS 1. Complete learning assessment and assess knowledge base 2. Provide teaching at level of understanding 3. Provide teaching via preferred learning method(s) Outcome: Progressing Note: Evaluation of progress towards goal: Will continue to educate pt of process, plan and medications * Discharge Planning Note - TURNER Benz - 05/16/2024 11:43 AM EDT DISCHARGE PLANNING NOTE Nishant rec'd a phone call from pt's dtr, she requested referrals to [facility] in [place], [facility] [place], [facility], [facility] and [facility] Nishant informed her that [facility] is no longer accepting skilled pt's. Will send referrals to other choices and will follow back up with her. - TURNER Benz 05/16/24 11:44 AM * Plan of Care - Karina Yousif RN - 05/16/2024 11:20 AM EDT Problem: Hemodynamic Status Goal: Maintains optimal cardiac [...] Score of =/> 25 or indicated by [facility] Assessment Goal: Patient should be free from fall Description: Interventions: 1. [place] to environment 2. Hourly rounds addressing the [...] non-skid footwear 11. Teach patient and patient billing customer service representative to maintain environment for safety and [...] (cane, walker) within reach 19. Request patient billing customer service representative bring adaptive equipment/mobility aids from home or obtain and provide as needed 20. Consult pharmacy regarding effects of med's affecting mobility, cognition, and alternatives 21. Obtain physician order for PT if risk factors associated with mobility are present 22. Obtain physician order for OT as appropriate 23. Utilize diversional activities 24. Educate patient and patient billing customer service representative how to maintain a safe environment during visitationtimes (notify nurse prior to leaving bedside) 25. Consider appropriateness of medical or non-medical laboratory technician 26. Set up voiding schedule as appropriate [...] Description: INTERVENTIONS: 1. Encourage patient or legal billing customer service representative to report early pain and ask [...] per policy 9. Teach patient or legal billing customer service representative interventions for comforting Outcome: Progressing Note: Evaluation of progress towards goal: Pt denies pain needs at this time, pt resting comfortably in bed. Pt encouraged to express pain needs. * Discharge Planning Note - TURNER Benz - 05/16/2024 10:40 AM EDT DISCHARGE PLANNING NOTE Sw called pt's dtr and explained role. Nishant informed dtr that none of the snf's so far are able to accept. Sw explained pt's insurance and the lifevest are the biggest barrier but also several facilities do not have beds. Dtr is going to call her sister. Await additional choices. - TURNER Benz 05/16/24 11:38 AM * Plan of Care - Amparo Valero RN - 05/16/2024 4:24 AM EDT Problem: Pain Goal: Patient goal is pain score less than 4, able to rest, and participant in treatment plan as appropriate Description: INTERVENTIONS: 1. Encourage patient or legal billing customer service representative to report early pain and ask [...] per policy 9. Teach patient or legal billing customer service representative interventions for comforting Outcome: Progressing Note: [...] at the bedside 7. Instruct patient/ patient billing customer service representative about use of safety devices 8. Include patient/ patient billing customer service representative in decisions related to safety Outcome: [...] hygiene technique. 7. Identify and instruct patient/patient billing customer service representative in use of appropriate isolation precautionsfor identified infection/symptoms. 8. Provide and discuss with patient/patient billing customer service representative on educational MDRO sheet. 9. Encourage and monitor nutritional status daily and consult foam rubber curer if indicated. 10. Implement neutropenic guidelines as needed. Outcome: Progressing Note: Evaluation of progress towards goal: Maintained Problem: Knowledge Deficit Goal: Patient/patient billing customer service representative demonstrates understanding of disease process, treatment [...] be free from fall Description: Interventions: 1. [place] to environment 2. Hourly rounds addressing the [...] non-skid footwear 11. Teach patient and patient billing customer service representative to maintain environment for safety and [...] (cane, walker) within reach 19. Request patient billing customer service representative bring adaptive equipment/mobility aids from home or obtain and provide as needed 20. Consult pharmacy regarding effects of med's affecting mobility, cognition, and alternatives 21. Obtain physician order for PT if risk factors associated with mobility are present 22. Obtain physician order for OT as appropriate 23. Utilize diversional activities 24. Educate patient and patient billing customer service representative how to maintain a safe environment during visitationtimes (notify nurse prior to leaving bedside) 25. Consider appropriateness of medical or non-medical laboratory technician 26. Set up voiding schedule as appropriate [...] care 6. Collaborate with pastoral/spiritual care, social service worker, mental health counselor as needed. 7. Instruct patient on diversional activities such as physical activity, distraction, and deep breathing exercises to assist with coping 8. Involve patient's billing customer service representative in care Outcome: Progressing Note: Evaluation [...] Note: Evaluation of progress towards goal: Maintained * Plan of Care - Camille Fields RN - 05/15/2024 4:54 PM EDT Problem: Pain Goal: Patient goal is pain score less than 4, able to rest, and participant in treatment plan as appropriate Description: INTERVENTIONS: 1. Encourage patient or legal billing customer service representative to report early pain and ask [...] per policy 9. Teach patient or legal billing customer service representative interventions for comforting Outcome: Progressing Note: [...] at the bedside 7. Instruct patient/ patient billing customer service representative about use of safety devices 8. Include patient/ patient billing customer service representative in decisions related to safety Outcome: Progressing Note: Evaluation of progress towards goal: Pt remains free from falls and injuries since beginning of shift. Call light within reach. Bed rails up x3. Orientation reviewed. Hourly rounded maintained.Will continue to maintain safety until end of hospital stay. Problem: Knowledge Deficit Goal: Patient/patient billing customer service representative demonstrates understanding of disease process, treatment plan,medications, and discharge instructions Description: INTERVENTIONS 1. Complete learning assessment and assess knowledge base 2. Provide teaching at level of understanding 3. Provide teaching via preferred learning method(s) Outcome: Progressing Note: Evaluation of progress towards goal: Plan of care discussed with patient, patient states understanding of plan of care, patient asks appropriate questions regarding care. * Discharge Planning Note - TURNER Benz - 05/15/2024 3:52 PM EDT DISCHARGE PLANNING NOTE Nishant rec'd a phone call from [facility], they are unable to accept a lifevest. - TURNER Benz 05/15/24 3:52 PM * Discharge Planning Note - TURNER Benz - 05/15/2024 2:40 PM EDT DISCHARGE PLANNING NOTE Nishant called pt's dtr and informed her that none of the snf's she chose are able to accept. Nishant explained does have a call out to [facility] but not sure they will have a bed. Nishant explained that [facility] offered their sister facilities as options, [facility] or [facility]. Dtr agreeable to referrals being sent to both of these facilities. Referrals sent . Nishant to follow. - TURNER Benz 05/15/24 3:52 PM * PT/OT/MULLING MACHINE OPERATOR - JESSIE Agosto - 05/15/2024 12:56 PM EDT Occupational Therapy Treatment Discharge Recommendations OT Recommendations : Long-Term Facility SNF/ECF Comments: Pt appropriate for SNF stay to increase strength, endurance, and balance to allowfor reduced fall risk prior to safe D/C [...] Gait belt, RW, chair alarm Pacemaker/ICD: Pacemaker Telemetry/Certification Officer: Yes Other Cardiac Monitoring Devices: Cardiac Life [...] session with call light in reach and nursenotified Transfers Sit to Stand: Contact guard assist [...] Patient will perform bed mobility with Modified [place] Dates: Start: 05/11/24 Expected End: 06/01/24 Description: Goal Description: Disciplines: OT Problem: Functional Mobility Dates: Start: 05/11/24 Disciplines: OT Goal: Patient will perform functional mobility with Modified [place] Dates: Start: 05/11/24 Expected End: 06/01/24 Description: [...] Patient will perform toilet transfers with Modified [place] Dates: Start: 05/11/24 Expected End: 06/01/24 Description: Goal Description: Disciplines: OT Outcomes Date/Time User Outcome 05/13/24 1453 JESSIE Campbell Progressing Goal Note filed on 05/13/24 1453 by JESSIE Campbell Evaluation of progress towards goal: Problem: Transfers Dates: Start: 05/11/24 Disciplines: OT Goal: Patient will perform transfers with Modified [place] Dates: Start: 05/11/24 Expected End: 06/01/24 Description: Goal Description: Disciplines: OT Outcomes Date/Time User Outcome 05/15/24 1153 JESSIE Agosto Progressing 05/13/24 1453 JESSIE Campbell Progressing Goal Note filed on 05/13/24 1453 by JESSIE Campbell Evaluation of progress towards goal: Occupational Therapy Care Plan (Resolved) There are no resolved problems. Principal Problem: CHB (complete heart block) ([facility]) Active Problems: HTN (hypertension) ST elevation myocardial infarction (STEMI) ([facility]) Coronary artery disease involving [place] coronary artery of [place] heart Mixed hyperlipidemia Cosigned by Merissa Felipe OTR/Ruby at 05/15/2024 2:14 PM EDT Associated attestation - Merissa Felipe OTR/Ruby - 05/15/2024 2:14 PM EDT I have reviewed and agree with this note and education documentation for this visit. * PT/OT/MULLING MACHINE OPERATOR - Rashi Mitchell PTA - 05/15/2024 11:41 AM EDT Physical Therapy Treatment Discharge Recommendations PT Recommendations: Long-Term Facility SNF/ECF Comments: Pt appropriate for SNF stay to increase strength, endurance, and balance to allowfor reduced fall risk prior to safe D/C [...] RN Equipment: Gait belt, RW, chair alarm Telemetry/Certification Officer: Yes Other Cardiac Monitoring Devices: Cardiac Life [...] Date/Time User Outcome 05/15/24 1140 Rashi Mitchell, [place] Progressing 05/13/24 1259 Ivanna Murray PTA Progressing Goal Note filed on 05/15/24 1140 by Rashi Mitchell PTA Evaluation of progress towards goal: Problem: Bed Mobility Dates: Start: 05/11/24 Disciplines: PT Goal: Patient will perform bed mobility with Modified [place] Dates: Start: 05/11/24 Expected End: 05/31/24 Description: Goal Description: with proper BUE placement and sequencing Disciplines: PT Outcomes Date/Time User Outcome 05/13/24 1259 Ivanna Murray PTA Progressing Goal Note filed on 05/14/24 0946 by Hannah Sue, Student [place] Evaluation of progress towards goal: Problem: Gait Dates: Start: 05/11/24 Disciplines: PT Goal: Patient will perform gait with Modified [place] Dates: Start: 05/11/24 Expected End: 05/31/24 Description: [...] Goal: Patient will perform stairs/curb with Modified [place] Dates: Start: 05/11/24 Expected End: 05/31/24 Description: __3___steps,__w/o___hand rails Goal Description: for safer entry into home Disciplines: PT Goal Note filed on 05/14/24 0946 by Hannah Sue, Student [place] Evaluation of progress towards goal: Problem: Standing Balance Dates: Start: 05/11/24 Disciplines: PT Goal: Improve balance to normal Dates: Start: 05/11/24 Expected End: 05/31/24 Description: Static/Dynamic to reduce risk of falls with all functional tasks Disciplines: PT Outcomes Date/Time User Outcome 05/15/24 1140 Rashi Mitchell PTA Progressing 05/14/24 0946 Hannah Sue, Student [place] Progressing 05/13/24 1259 Ivanna Murray PTA Progressing [...] PTA Progressing 05/14/24 0946 Hannah Sue, Student [place] Progressing 05/13/24 1259 Ivanna Murray PTA Progressing Goal Note filed on 05/15/24 1140 by Rashi Mitchell PTA Evaluation of progress towards goal: Problem: Transfers Dates: Start: 05/11/24 Disciplines: PT Goal: Patient will perform transfers with Modified [place] Dates: Start: 05/11/24 Expected End: 05/31/24 Description: [...] problems. Principal Problem: CHB (complete heart block) ([facility]) Active Problems: HTN (hypertension) ST elevation myocardial infarction (STEMI) ([facility]) Coronary artery disease involving [place] coronary artery of [place] heart Mixed hyperlipidemia Cosigned by Janae Shaffer PT at 05/15/2024 12:37 PM EDT Associated attestation - Janae Shaffer PT - 05/15/2024 12:37 PM EDT I have reviewed and agree with this note and education documentation for this visit. * Discharge Planning Note - TURNER Benz - 05/15/2024 10:40 AM EDT DISCHARGE PLANNING NOTE Nishant called [facility] and they have not reviewed the referral yet however she reports they do not have any available beds. Nishant called pt's dtr and informed her. Dtr provided three more choices, [facility], [facility] dtr will review list for more choices. Referrals sent. Nishant to follow. - TURNER Benz 05/15/24 11:52 AM * Plan of Care - Mark Lares RN - 05/15/2024 2:52 AM EDT Problem: Safety Goal: Patient will be injury free during hospitalization Description: INTERVENTIONS: 1. Assess patient's risk for falls and implement fall prevention plan of care per policy 2. Provide and maintain a safe environment 3. Proper use of double Identifiers 4. Medication administration using the 5 rights 5. Hand hygiene 6. Specimens are labeled at the bedside 7. Instruct patient/ patient billing customer service representative about use of safety devices 8. Include patient/ patient billing customer service representative in decisions related to safety Outcome: [...] hygiene technique. 7. Identify and instruct patient/patient billing customer service representative in use of appropriate isolation precautionsfor identified infection/symptoms. 8. Provide and discuss with patient/patient billing customer service representative on educational MDRO sheet. 9. Encourage and monitor nutritional status daily and consult foam rubber curer if indicated. 10. Implement neutropenic guidelines as [...] is to be discharged to a SNF * Plan of Care - Santos Malik RN - 05/14/2024 2:12 PM EDT Problem: Pain Goal: Patient goal is pain score less than 4, able to rest, and participant in treatment plan as appropriate Description: INTERVENTIONS: 1. Encourage patient or legal billing customer service representative to report early pain and ask [...] per policy 9. Teach patient or legal billing customer service representative interventions for comforting Outcome: Progressing Note: [...] at the bedside 7. Instruct patient/ patient billing customer service representative about use of safety devices 8. Include patient/ patient billing customer service representative in decisions related to safety Outcome: [...] hygiene technique. 7. Identify and instruct patient/patient billing customer service representative in use of appropriate isolation precautionsfor identified infection/symptoms. 8. Provide and discuss with patient/patient billing customer service representative on educational MDRO sheet. 9. Encourage and monitor nutritional status daily and consult foam rubber curer if indicated. 10. Implement neutropenic guidelines as needed. Outcome: Progressing Note: Evaluation of progress towards goal: Monitoring labs and vital signs; patient remains afebrile. Problem: Knowledge Deficit Goal: Patient/patient billing customer service representative demonstrates understanding of disease process, treatment [...] progress towards goal: Waiting for discharge plan. * Plan of Care - Reema Parks RN - 05/13/2024 9:59 PM EDT Problem: Pain Goal: Patient goal is pain score less than 4, able to rest, and participant in treatment plan as appropriate Description: INTERVENTIONS: 1. Encourage patient or legal billing customer service representative to report early pain and ask [...] per policy 9. Teach patient or legal billing customer service representative interventions for comforting Outcome: Progressing Note: [...] at the bedside 7. Instruct patient/ patient billing customer service representative about use of safety devices 8. Include patient/ patient billing customer service representative in decisions related to safety Outcome: Progressing Note: Evaluation of progress towards goal: Pt remains free from falls and injuries since beginning of shift. Call light within reach. Bed rails up x2. Orientation reviewed. Hourly rounded maintained.Will continue to maintain safety until end of hospital stay. Problem: Knowledge Deficit Goal: Patient/patient billing customer service representative demonstrates understanding of disease process, treatment plan,medications, and discharge instructions Description: INTERVENTIONS 1. Complete learning assessment and assess knowledge base 2. Provide teaching at level of understanding 3. Provide teaching via preferred learning method(s) Outcome: Progressing Note: Evaluation of progress towards goal: Patient educated on daily plan of care and current medications. Patient verbalizes understanding and denies any questions at this time. * PT/OT/MULLING MACHINE OPERATOR - Ivanna Murray, [place] - 05/13/2024 1:00 PM EDT Physical Therapy Treatment Discharge Recommendations PT Recommendations: Long-Term Facility Therapy Plan 6 Clicks: Basic Mobility [...] Yes PT Type of Visit: Treatment Precautions Telemetry/Certification Officer: Yes Pain Assessment Pain Assessment: No/denies pain [...] Date/Time User Outcome 05/13/24 1259 Ivanna Murray, [place] Progressing Problem: Bed Mobility Dates: Start: 05/11/24 Disciplines: PT Goal: Patient will perform bed mobility with Modified [place] Dates: Start: 05/11/24 Expected End: 05/31/24 Description: Goal Description: with proper BUE placement and sequencing Disciplines: PT Outcomes Date/Time User Outcome 05/13/24 1259 Ivannawinter Murray, [place] Progressing Problem: Gait Dates: Start: 05/11/24 Disciplines: PT Goal: Patient will perform gait with Modified [place] Dates: Start: 05/11/24 Expected End: 05/31/24 Description: With__RW__,__100__feet Goal Description: with proper gait pattern and safety awareness Disciplines: PT Outcomes Date/Time User Outcome 05/13/24 1259 Ivannawinter Murray, [place] Progressing Problem: Stairs/Curb Dates: Start: 05/11/24 Disciplines: PT Goal: Patient will perform stairs/curb with Modified [place] Dates: Start: 05/11/24 Expected End: 05/31/24 Description: __3___steps,__w/o___hand rails Goal Description: for safer entry into home Disciplines: PT Problem: Standing Balance Dates: Start: 05/11/24 Disciplines: PT Goal: Improve balance to normal Dates: Start: 05/11/24 Expected End: 05/31/24 Description: Static/Dynamic to reduce risk of falls with all functional tasks Disciplines: PT Outcomes Date/Time User Outcome 05/13/24 1259 Ivannawinter Murray, [place] Progressing Problem: Strength Dates: Start: 05/11/24 Disciplines: PT Goal: Improve strength Dates: Start: 05/11/24 Expected End: 05/31/24 Description: Of extremity/ location: BLE strength to WFL To facilitate: Safer functional mobility tasks Disciplines: PT Outcomes Date/Time User Outcome 05/13/24 1259 Ivannawinter Murray, [place] Progressing Problem: Transfers Dates: Start: 05/11/24 Disciplines: PT Goal: Patient will perform transfers with Modified [place] Dates: Start: 05/11/24 Expected End: 05/31/24 Description: Goal Description: with proper BUE placement and sequencing Disciplines: PT Outcomes Date/Time User Outcome 05/13/24 1259 Ivanna Orange, [place] Progressing Physical Therapy Care Plan (Resolved) There are no resolved problems. Principal Problem: CHB (complete heart block) ([facility]) Active Problems: HTN (hypertension) ST elevation myocardial infarction (STEMI) ([facility]) Coronary artery disease involving [place] coronary artery of [place] heart Mixed hyperlipidemia Cosigned by Janae Shaffer PT at 05/13/2024 1:57 PM EDT Associated attestation - Janae Shaffer, PT - 05/13/2024 1:57 PM EDT I have reviewed and agree with this note and education documentation for this visit. * Plan of Care - Gale Franklin RN - 05/13/2024 12:09 PM EDT Problem: Pain Goal: Patient goal is pain score less than 4, able to rest, and participant in treatment plan as appropriate Description: INTERVENTIONS: 1. Encourage patient or legal billing customer service representative to report early pain and ask [...] per policy 9. Teach patient or legal billing customer service representative interventions for comforting Outcome: Progressing Note: Evaluation of progress towards goal: Pt has had no c/o pain Problem: Knowledge Deficit Goal: Patient/patient billing customer service representative demonstrates understanding of disease process, treatment [...] towards goal: PT/OT rec SNF for discharge * PT/OT/MULLING MACHINE OPERATOR - LOUISA Campbell/Ruby - 05/13/2024 11:35 AM EDT Occupational Therapy Treatment Discharge Recommendations OT Recommendations : Long-Term Facility 6 Clicks: Daily Activity Putting on [...] RN Equipment: Gait belt, RW, chair alarm Telemetry/Certification Officer: Yes Other: High fall risk, h/o falls, [...] present upon writers arrival and was left inthe chair at end of session with call light garry reach and with RN aware. chair alarm [...] required. pt requires B UE support from [facility] functional mobility and with CGA provided. no [...] JESSIE Campbell Progressing Goal Note filed on 05/13/241452 by JESISE Campbell Evaluation of progress towards goal: Problem: Bed Mobility Dates: Start: 05/11/24 Disciplines: OT Goal: Patient will perform bed mobility with Modified [place] Dates: Start: 05/11/24 Expected End: 06/01/24 Description: Goal Description: Disciplines: OT Problem: Functional Mobility Dates: Start: 05/11/24 Disciplines: OT Goal: Patient will perform functional mobility with Modified [place] Dates: Start: 05/11/24 Expected End: 06/01/24 Description: [...] Patient will perform toilet transfers with Modified [place] Dates: Start: 05/11/24 Expected End: 06/01/24 Description: Goal Description: Disciplines: OT Outcomes Date/Time User Outcome 05/13/241452 JESSIE Campbell Progressing Goal Note filed on 05/13/24 1453 by JESSIE Campbell Evaluation of progress towards goal: Problem: Transfers Dates: Start: 05/11/24 Disciplines: OT Goal: Patient will perform transfers with Modified [place] Dates: Start: 05/11/24 Expected End: 06/01/24 Description: Goal Description: Disciplines: OT Outcomes Date/Time User Outcome 05/13/24 145 JESSIE Campbell Progressing Goal Note filed on 05/13/24 145 by JESSIE Campbell Evaluation of progress towards goal: Occupational Therapy Care Plan (Resolved) There are no resolved problems. Principal Problem: CHB (complete heart block) ([facility]) Active Problems: HTN (hypertension) ST elevation myocardial infarction (STEMI) ([facility]) Coronary artery disease involving [place] coronary artery of [place] heart Mixed hyperlipidemia Cosigned by PRIYA Hernandez/Ruby at 05/13/2024 3:07 PM EDT Associated attestation - Elizabeth Polanco OTR/Ruby - 05/13/2024 3:07 PM EDT I have reviewed and agree with this note and education documentation for this visit. * Plan of Care - Elisha Parry RN - 05/12/2024 10:15 PM EDT Problem: Pain Goal: Patient goal is pain score less than 4, able to rest, and participant in treatment plan as appropriate Description: INTERVENTIONS: 1. Encourage patient or legal billing customer service representative to report early pain and ask [...] per policy 9. Teach patient or legal billing customer service representative interventions for comforting Outcome: Progressing Note: [...] at the bedside 7. Instruct patient/ patient billing customer service representative about use of safety devices 8. Include patient/ patient billing customer service representative in decisions related to safety Outcome: Progressing Note: Evaluation of progress towards goal: Pt remains free from falls and injuries since beginning of shift. Call light within reach. Bed rails up x3. Orientation reviewed. Bed alarm in place. Hourlyrounded maintained. Will continue to maintain safety until [...] hygiene technique. 7. Identify and instruct patient/patient billing customer service representative in use of appropriate isolation precautionsfor identified infection/symptoms. 8. Provide and discuss with patient/patient billing customer service representative on educational MDRO sheet. 9. Encourage and monitor nutritional status daily and consult foam rubber curer if indicated. 10. Implement neutropenic guidelines as needed. Outcome: Progressing Note: Evaluation of progress towards goal: no signs/symptoms of infection noted Problem: Knowledge Deficit Goal: Patient/patient billing customer service representative demonstrates understanding of disease process, treatment [...] Score of =/> 25 or indicated by [facility] Assessment Goal: Patient should be free from fall Description: Interventions: 1. [place] to environment 2. Hourly rounds addressing the [...] non-skid footwear 11. Teach patient and patient billing customer service representative to maintain environment for safety and [...] (cane, walker) within reach 19. Request patient billing customer service representative bring adaptive equipment/mobility aids from home or obtain and provide as needed 20. Consult pharmacy regarding effects of med's affecting mobility, cognition, and alternatives 21. Obtain physician order for PT if risk factors associated with mobility are present 22. Obtain physician order for OT as appropriate 23. Utilize diversional activities 24. Educate patient and patient billing customer service representative how to maintain a safe environment during visitationtimes (notify nurse prior to leaving bedside) 25. Consider appropriateness of medical or non-medical laboratory technician 26. Set up voiding schedule as appropriate (every 2 hours) Outcome: Progressing Note: Evaluation of progress towards goal: Pt remains free from falls and injuries since beginning of shift. Call light within reach. Bed rails up x3. Orientation reviewed. Bed alarm in place. Hourlyrounded maintained. Will continue to maintain safety until end of hospital stay. Problem: Anxiety Goal: Anxiety is at manageable level Description: Patient's goal is: INTERVENTIONS 1. Assess and monitor patient's anxiety level 2. Monitor for signs and symptoms of anxiety both physical and emotional (heart palpitations, chestpain, shortness of breath, headaches, nausea, feeling jumpy, [...] Collaborate with ancillary departments 14. Include patient/patient billing customer service representative in decisions related to anxiety Outcome: [...] supplement as ordered 13. Collaborate with clinical foam rubber curer 14. Include patient/ patient's billing customer service representative in decisions related to nutrition Outcome: [...] supplement as ordered 13. Collaborate with clinical foam rubber curer 14. Include patient/ patient's billing customer service representative in decisions related to nutrition Outcome: Completed Note: Evaluation of progress towards goal: N/A * Plan of Care - Fabio Viveros MD - 05/12/2024 2:51 PM EDT Neurology consulted for altered mentation. Suspect acute [...] sign off Fabio Viveros MD Psychiatry PGY-1 [facility] Department of Neurosciences & Psychiatry * Discharge Planning Note - Sharita Duron - 05/12/2024 12:43 PM EDT DISCHARGE PLANNING NOTE Referral sent to. [facility]/ [facility], [place], [place] (P# ; F# ) [facility] (P# ; F# ) * Discharge Planning Note - Cherie Day RN - 05/12/2024 11:28 AM EDT DISCHARGE PLANNING NOTE Pt not sure about SNF but agreeable for CN to talk to daughters. Called [facility]- only contact to discuss. Discussed PT/OT recommends SNF. She states family agrees and would like a referral to [facility]. Also sent list to daughter in case additional choices are needed - Cherie Day RN 05/12/24 11:38 AM Received [facility] from [facility] for [facility], [facility] . Tasked also - Cherie Day RN 05/12/24 11:47 AM * Plan of Care - Francie Bolanos RN - 05/12/2024 7:43 AM EDT Problem: Pain Goal: Patient goal is pain score less than 4, able to rest, and participant in treatment plan as appropriate Description: INTERVENTIONS: 1. Encourage patient or legal billing customer service representative to report early pain and ask [...] per policy 9. Teach patient or legal billing customer service representative interventions for comforting Outcome: Progressing Note: Evaluation of progress towards goal: Pt able to report pain according to 0/10 pain scale. Medicating patient for pain per orders. Problem: Knowledge Deficit Goal: Patient/patient billing customer service representative demonstrates understanding of disease process, treatment plan,medications, and discharge instructions Description: INTERVENTIONS 1. Complete learning assessment and assess knowledge base 2. Provide teaching at level of understanding 3. Provide teaching via preferred learning method(s) Outcome: Progressing Note: Evaluation of progress towards goal: POC discussed with patient. Questions answered PRN. * Discharge Planning Note - Cherie Day RN - 05/11/2024 4:24 PM EDT DISCHARGE PLANNING NOTE PT/OT recommends snf. Left list for pt. Discussed with pt and journalism intern will f/u with pt/family tomorrow. Pt will need acceptance and auth - Cherie Day RN 05/11/24 4:26 PM * PT/OT/MULLING MACHINE OPERATOR - Zaki Doss, PT - 05/11/2024 11:35 AM EDT Physical Therapy Evaluation Discharge Recommendations PT Recommendations: Long-Term Facility SNF/ECF Comments: To improve safety awareness [...] resulting from recent admit on 05/07/24 from [facility] ED s/p fall; pt c/o chest pain, dizziness andlightheadedness. No LOC. Pt with several episodes of unresponsiveness; some compressions needed. Flight to [facility] CICU. EKG: STEMI. 05/07 [employer]: GARETT to LAD 05/08 Trop peak [id number] 05/09 [employer]: PCI of OM 05/10 Neuro consulted: hallucinations, memory loss likely due to metabolic encephalopathy. CT brain (-) EEG: normal. Possible Echo, life vest prior to discharge. CIWA protocol, delirium precautions. 05/11 Hgb 11.0 Past Medical History: Diagnosis Date Asthma Asthma Back pain Cervical disc disorder CHB (complete heart block) ([facility]) 05/07/2024 HTN (hypertension) Hx of scabies Low back pain Lumbosacral disc disease Neck pain Osteoarthritis TMJ (temporomandibular joint syndrome) Past Surgical History: Procedure Laterality Date Cardiac Invasive N/A 05/09/2024 Performed by Gilberto Zepeda MD at [facility] CARDIAC CATH LABS Cardiac Invasive-cors N/A 05/07/2024 Performed by Gilberto Zepeda MD at [facility] CARDIAC CATH LABS SECTION SECTION 1980,82,, INJECTION MEDIAL BRANCH NERVE BLOCK: left C34 45 56 Left 03/16/2018 Performed by Manav Rosario MD at [facility] INJECTION MEDIAL BRANCH NERVE BLOCK: left c34 45 56 Left 02/12/2018 Performed by Manav Rosario MD at [facility] INJECTION MEDIAL BRANCH NERVE BLOCK: right C34 45 56 Right 09/14/2018 Performed by Manav Rosario MD at [facility] INJECTION MEDIAL BRANCH NERVE BLOCK: right C34 45 56mbb Right 07/23/2018 Performed by Manav Rosario MD at [facility] Insert/replace temporary single lead pacemaker N/A 05/07/2024 Performed by Gilberto Zepeda MD at [facility] CARDIAC CATH LABS Intravascular ultrasound initial vessel N/A 05/07/2024 Performed by Gilberto Zepeda MD at [facility] CARDIAC CATH LABS ORTHOPEDIC SURGERY Percutaneous coronary intervention N/A 05/07/2024 Performed by Gilberto Zepeda MD at [facility] CARDIAC CATH LABS Percutaneous coronary intervention of OM N/A 05/09/2024 Performed by Gilberto Zepeda MD at [facility] CARDIAC CATH LABS RADIO FREQUENCY ABLATION Right C 3/4, 4/5, 5/6 Right 11/15/2019 Performed by Manav Rosario MD at [facility] RADIO FREQUENCY ABLATION: left C34 45 56rfa Left 04/30/2018 Performed by Manav Rosario MD at [facility] RADIOFREQUENCY ABLATION SPINAL: Right C 4/5 5/6 Left 07/08/2022 Performed by Manav Rosario MD at [facility] RADIOFREQUENCY ABLATION SPINAL: right C 4/5 5/6 Right 07/29/2022 Performed by Manav Rosario MD at [facility] Revascularization/drug eluting stent/ left anterior descending N/A 05/07/2024 Performed by Gilberto Zepeda MD at [facility] CARDIAC CATH LABS ROTATOR CUFF REPAIR Left Stent drug-eluting/ left circumflex N/A 05/09/2024 Performed by Gilberto Zepeda MD at [facility] CARDIAC CATH LABS TONSILLECTOMY 1970 PT Treatment/Interventions: Functional transfer training, LE strengthening/ROM, Endurance training,Patient/family training, Equipment eval/education, Balance, Stair training, Bed [...] belt, RW, hylton catheter, chair alarm, telesitter Telemetry/Certification Officer: Yes Oxygen Used: 2L on arrival removed [...] None Stairs in Home: FF to 2nd second floor operator Rails in Home: Left Bathroom Shower/Tub: [...] Patient will perform bed mobility with Modified [place] Dates: Start: 05/11/24 Expected End: 05/31/24 Description: Goal Description: with proper BUE placement and sequencing Disciplines: PT Problem: Gait Dates: Start: 05/11/24 Disciplines: PT Goal: Patient will perform gait with Modified [place] Dates: Start: 05/11/24 Expected End: 05/31/24 Description: With__RW__,__100__feet Goal Description: with proper gait pattern and safety awareness Disciplines: PT Problem: Stairs/Curb Dates: Start: 05/11/24 Disciplines: PT Goal: Patient will perform stairs/curb with Modified [place] Dates: Start: 05/11/24 Expected End: 05/31/24 Description: [...] Goal: Patient will perform transfers with Modified [place] Dates: Start: 05/11/24 Expected End: 05/31/24 Description: Goal Description: with proper BUE placement and sequencing Disciplines: PT Physical Therapy Care Plan (Resolved) There are no resolved problems. Principal Problem: CHB (complete heart block) ([facility]) Active Problems: ST elevation myocardial infarction (STEMI) ([facility]) Coronary artery disease involving [place] coronary artery of [place] heart * Plan of Care - Karina Yousif RN - 05/11/2024 10:46 AM EDT Problem: Pain Goal: Patient goal is pain score less than 4, able to rest, and participant in treatment plan as appropriate Description: INTERVENTIONS: 1. Encourage patient or legal billing customer service representative to report early pain and ask [...] per policy 9. Teach patient or legal billing customer service representative interventions for comforting Outcome: Progressing Note: [...] be free from fall Description: Interventions: 1. [place] to environment 2. Hourly rounds addressing the [...] non-skid footwear 11. Teach patient and patient billing customer service representative to maintain environment for safety and [...] (cane, walker) within reach 19. Request patient billing customer service representative bring adaptive equipment/mobility aids from home or obtain and provide as needed 20. Consult pharmacy regarding effects of med's affecting mobility, cognition, and alternatives 21. Obtain physician order for PT if risk factors associated with mobility are present 22. Obtain physician order for OT as appropriate 23. Utilize diversional activities 24. Educate patient and patient billing customer service representative how to maintain a safe environment during visitationtimes (notify nurse prior to leaving bedside) 25. Consider appropriateness of medical or non-medical laboratory technician 26. Set up voiding schedule as appropriate (every 2 hours) Outcome: Progressing Note: Evaluation of progress towards goal: Pt will remain free from falls during current admission.Bed and chair locked, bed alarm and chair alarm in use, non- slip socks in use, assistive devices inuse, tele-sitter in use, call light and personal [...] and appropriate lab draws at this time. * PT/OT/MULLING MACHINE OPERATOR - Aleksandra Lujan OT/L - 05/11/2024 9:28 AM EDT Occupational Therapy Evaluation Discharge Recommendations OT Recommendations : Long-Term Facility SNF/ECF Comments: Due to decline in [...] 63 y/o female who initially presented to [facility] ED s/p fall; pt c/o chest pain, dizziness and lightheadedness. No LOC. Pt with several episodes of unresponsiveness; some compressions needed.Flight to [facility] CICU. EKG: STEMI. 05/07 [employer]: GARETT to LAD 05/08 Trop peak 51,668 05/09 [employer]: PCI of OM 05/10 Neuro consulted: hallucinations, memory loss likely due to metabolic encephalopathy. CT brain (-) EEG: normal. Possible Echo, life vest prior to discharge. CIWA protocol, delirium precautions. 05/11 Hgb 11.0 Past Medical History: Diagnosis Date Asthma Asthma Back pain Cervical disc disorder CHB (complete heart block) ([facility]) 05/07/2024 HTN (hypertension) Hx of scabies Low back pain Lumbosacral disc disease Neck pain Osteoarthritis TMJ (temporomandibular joint syndrome) Past Surgical History: Procedure Laterality Date Cardiac Invasive N/A 05/09/2024 Performed by Gilberto Zepeda MD at [facility] CARDIAC CATH LABS Cardiac Invasive-cors N/A 05/07/2024 Performed by Gilberto Zepeda MD at [facility] CARDIAC CATH LABS SECTION SECTION 1980,,, INJECTION MEDIAL BRANCH NERVE BLOCK: left C34 45 56 Left 03/16/2018 Performed by Manav Rosario MD at [facility] INJECTION MEDIAL BRANCH NERVE BLOCK: left c34 45 56 Left 02/12/2018 Performed by Manav Rosario MD at [facility] INJECTION MEDIAL BRANCH NERVE BLOCK: right C34 45 56 Right 09/14/2018 Performed by Manav Rosario MD at [facility] INJECTION MEDIAL BRANCH NERVE BLOCK: right C34 45 56mbb Right 07/23/2018 Performed by Manav Rosario MD at [facility] Insert/replace temporary single lead pacemaker N/A 05/07/2024 Performed by Gilberto Zepeda MD at [facility] CARDIAC CATH LABS Intravascular ultrasound initial vessel N/A 05/07/2024 Performed by Gilberto Zepeda MD at [facility] CARDIAC CATH LABS ORTHOPEDIC SURGERY Percutaneous coronary intervention N/A 05/07/2024 Performed by Gilberto Zepeda MD at [facility] CARDIAC CATH LABS Percutaneous coronary intervention of OM N/A 05/09/2024 Performed by Gilberto Zepeda MD at [facility] CARDIAC CATH LABS RADIO FREQUENCY ABLATION Right C 3/4, 4/5, 5/6 Right 11/15/2019 Performed by Manav Rosario MD at [facility] RADIO FREQUENCY ABLATION: left C34 45 56rfa Left 04/30/2018 Performed by Manav Rosario MD at [facility] RADIOFREQUENCY ABLATION SPINAL: Right C 4/5 5/6 Left 07/08/2022 Performed by Manav Rosario MD at [facility] RADIOFREQUENCY ABLATION SPINAL: right C 4/5 5/6 Right 07/29/2022 Performed by Manav Rosario MD at [facility] Revascularization/drug eluting stent/ left anterior descending N/A 05/07/2024 Performed by Gilberto Zepeda MD at [facility] CARDIAC CATH LABS ROTATOR CUFF REPAIR Left Stent drug-eluting/ left circumflex N/A 05/09/2024 Performed by Gilberto Zepeda MD at [facility] CARDIAC CATH LABS TONSILLECTOMY 1970 OT Treatment/Interventions: [...] belt, RW, hylton catheter, chair alarm, telesitter Telemetry/Certification Officer: Yes Oxygen Used: Pt initially on 2L; [...] None Stairs in Home: Flight to 2nd second floor operator Rails in Home: Left Bathroom Shower/Tub: Tub/shower unit Bathroom Toilet: Standard Bathroom Equipment: Grab bars in shower Home Equipment: Quad cane Other : Pt reports ambulating without AD prior to admission. Pt denies any additional recent falls,however, pt has had multiple falls per EMR. Prior Function Lives With: Other (Comment) (Roommate lives upstairs in home; shared 2nd floor bathroom.) Receives Help From: Family (2 local daughters (both work), local siblings) Level of Mobility: Independent with ADLs and functional transfers or gait Homemaking Assistance: Independent Other: Pt reports being grossly independent with IADL; pt [facility] [employer]. Pt does not drive; takes the bus. Vocational: Retired ADL / IADL Hand Dominance: Left Where Assessed: Edge of bed, Chair Eating Assistance: Modified independent Grooming Assistance: Min assist Bathing/Showering Assistance: Mod assist Toilet/Commode Assistance: Total assist (Hylton) UE Dressing Assistance: Min assist LE Dressing Assistance: Mod assist Footwear Assistance: Mod assist Other: Pt with hylton in place. Min A to [facility]. Increased assist with BADL tasks at this time due to decreased overall strength/activity tolerance. Assist required for thoroughness with brushing hair. Mod I with eating. Home Management - IADL Other: Pt with hylton in place. Min A to [facility]. Increased assist with BADL tasks at this [...] Functional Limits (Pt reports mild tingling in upperback/neck.) Bed Mobility Supine to Sit: Stand by assist, Right Sit to Supine: (NT; pt left up in chair with needs met and call light within reach. RN aware; chairalarm on; telesitter in place.) Other: HOB slightly [...] participation; activity limited by weakness and fatigue atthis time. Pt initially on 2L O2/NC in [...] Patient will perform bed mobility with Modified [place] Dates: Start: 05/11/24 Expected End: 06/01/24 Description: Goal Description: Disciplines: OT Problem: Functional Mobility Dates: Start: 05/11/24 Disciplines: OT Goal: Patient will perform functional mobility with Modified [place] Dates: Start: 05/11/24 Expected End: 06/01/24 Description: [...] Patient will perform toilet transfers with Modified [place] Dates: Start: 05/11/24 Expected End: 06/01/24 Description: Goal Description: Disciplines: OT Problem: Transfers Dates: Start: 05/11/24 Disciplines: OT Goal: Patient will perform transfers with Modified [place] Dates: Start: 05/11/24 Expected End: 06/01/24 Description: Goal Description: Disciplines: OT Occupational Therapy Care Plan (Resolved) There are no resolved problems. Principal Problem: CHB (complete heart block) ([facility]) Active Problems: ST elevation myocardial infarction (STEMI) ([facility]) Coronary artery disease involving [place] coronary artery of [place] heart * Plan of Care - Oniel Kumar RN - 05/11/2024 4:25 AM EDT Problem: Pain Goal: Patient goal is pain score less than 4, able to rest, and participant in treatment plan as appropriate Description: INTERVENTIONS: 1. Encourage patient or legal billing customer service representative to report early pain and ask [...] per policy 9. Teach patient or legal billing customer service representative interventions for comforting Outcome: Progressing Note: [...] at the bedside 7. Instruct patient/ patient billing customer service representative about use of safety devices 8. Include patient/ patient billing customer service representative in decisions related to safety Outcome: Progressing Note: Evaluation of progress towards goal: Patient remains free from injury or falls. Bed alarm on,low, and locked. Call light within reach. Telesitter maintained. Gait unable to be assessed. Problem: Knowledge Deficit Goal: Patient/patient billing customer service representative demonstrates understanding of disease process, treatment [...] anxiety both physical and emotional (heart palpitations, chestpain, shortness of breath, headaches, nausea, feeling jumpy, [...] Collaborate with ancillary departments 14. Include patient/patient billing customer service representative in decisions related to anxiety Outcome: Progressing Note: Evaluation of progress towards goal: patient remains calm and cooperative while pleasantly disoriented. * Plan of Care - Jennie Farnsworth RN - 05/10/2024 6:07 PM EDT Problem: Safety Goal: Patient will be injury free during hospitalization Description: INTERVENTIONS: 1. Assess patient's risk for falls and implement fall prevention plan of care per policy 2. Provide and maintain a safe environment 3. Proper use of double Identifiers 4. Medication administration using the 5 rights 5. Hand hygiene 6. Specimens are labeled at the bedside 7. Instruct patient/ patient billing customer service representative about use of safety devices 8. Include patient/ patient billing customer service representative in decisions related to safety Outcome: Progressing Note: Evaluation of progress towards goal: Patient remains injury free during hospital stay. Safetymeasures used when caring for patient. Problem: Moderate - High Risk Fall Score Description: Lew Fall Score of =/> 25 or indicated by [facility] Assessment Goal: Patient should be free from fall Description: Interventions: 1. [place] to environment 2. Hourly rounds addressing the [...] non-skid footwear 11. Teach patient and patient billing customer service representative to maintain environment for safety and [...] (cane, walker) within reach 19. Request patient billing customer service representative bring adaptive equipment/mobility aids from home or obtain and provide as needed 20. Consult pharmacy regarding effects of med's affecting mobility, cognition, and alternatives 21. Obtain physician order for PT if risk factors associated with mobility are present 22. Obtain physician order for OT as appropriate 23. Utilize diversional activities 24. Educate patient and patient billing customer service representative how to maintain a safe environment during visitationtimes (notify nurse prior to leaving bedside) 25. Consider appropriateness of medical or non-medical laboratory technician 26. Set up voiding schedule as appropriate (every 2 hours) Outcome: Progressing Note: Evaluation of progress towards goal: pt free from falls and injury, pt safety maintained, call light within reach, SPH equipment used * Discharge Planning Note - Viji Pham RN - 05/10/2024 4:14 PM EDT Images from the original note were not included. DISCHARGE PLANNING NOTE [employer] Submergence Vehicle Crewmember met with patient and spoke with patient's daughter, introduced self, and explained role. Patient educated on safe discharge plan. Pt admitted 05/07/2024 with CHB (complete heart block) ([facility]) [I44.2] Acute electrocardiogram changes [R94.31] ST elevation ND (STEMI) ([facility]) [I21.3] per chart review. Consults: Cardiology, Electrophysiology, and Nephrology, neurology. Discharge Barriers per Daily Transition Rounds and chart review: lifevest, CIWA, telesitter. Past Medical History: Diagnosis Date Asthma Asthma Back pain Cervical disc disorder CHB (complete heart block) ([facility]) 05/07/2024 HTN (hypertension) Hx of scabies Low back pain Lumbosacral disc disease Neck pain Osteoarthritis TMJ (temporomandibular joint syndrome) Prior to admission patient was living alone and self care. Medical equipment patient used prior to admission includes: None. Patient denies need for prescription medication assistance resources. PCP: ROSITA Lance Pharmacy:[facility] PCP and pharmacy confirmed with patient. CN offered to assist with follow up appointment arrangements; patient declines - states will self-schedule follow up appointments. [facility] Casi added to Follow Up Providers [...] provided per patient request, patient would like foodbox on discharge if discharging home. CN reached [...] - Viji Pham RN 05/10/24 4:14 PM * Plan of Care - Elle Rinaldi RN - 05/09/2024 8:25 PM EDT Problem: Pain Goal: Patient goal is pain score less than 4, able to rest, and participant in treatment plan as appropriate Description: INTERVENTIONS: 1. Encourage patient or legal billing customer service representative to report early pain and ask [...] per policy 9. Teach patient or legal billing customer service representative interventions for comforting 05/09/20242019 by DONTE [...] at the bedside 7. Instruct patient/ patient billing customer service representative about use of safety devices 8. Include patient/ patient billing customer service representative in decisions related to safety Outcome: [...] hygiene technique. 7. Identify and instruct patient/patient billing customer service representative in use of appropriate isolation precautionsfor identified infection/symptoms. 8. Provide and discuss with patient/patient billing customer service representative on educational MDRO sheet. 9. Encourage and monitor nutritional status daily and consult foam rubber curer if indicated. 10. Implement neutropenic guidelines as needed. Outcome: Progressing Note: Evaluation of progress towards goal: Pt remained afebrile throughout shift and showed no s/s of infection. Problem: Knowledge Deficit Goal: Patient/patient billing customer service representative demonstrates understanding of disease process, treatment [...] be free from fall Description: Interventions: 1. [place] to environment 2. Hourly rounds addressing the [...] non-skid footwear 11. Teach patient and patient billing customer service representative to maintain environment for safety and [...] (cane, walker) within reach 19. Request patient billing customer service representative bring adaptive equipment/mobility aids from home or obtain and provide as needed 20. Consult pharmacy regarding effects of med's affecting mobility, cognition, and alternatives 21. Obtain physician order for PT if risk factors associated with mobility are present 22. Obtain physician order for OT as appropriate 23. Utilize diversional activities 24. Educate patient and patient billing customer service representative how to maintain a safe environment during visitationtimes (notify nurse prior to leaving bedside) 25. Consider appropriateness of medical or non-medical laboratory technician 26. Set up voiding schedule as appropriate (every 2 hours) Outcome: Progressing Note: Evaluation of progress towards goal: Pt educated on fall risk precautions. Pt used call lightappropriately and safety maintained this shift. Problem: Hemodynamic [...] Pt remains hemodynamically stable at this time. * Pre-Sedation Documentation - Brooke Doss MD - 05/09/2024 3:29 PM EDT Pre Procedure Evaluation: H&P was reviewed and the patient was examined. No change has occurredin the patient's condition since the H&P was completed. ASA: 3 Mallampati: II Sedation plan and risks discussed with: patient Indication(s) for Die Maintenance Visit: ACS > 24hrs Chest Pain Symptom Assessment: typical Cardiovascular Instability: No Heart Failure: Yes Congestive Heart Failure (NYHA Classification most recent): III Heart Failure Newly Diagnosed: Yes Heart Failure Type: Systolic Electrocardiac Assessment Method: ECG Results: normal and abnormal Stress Test Performed: No Cardiac CTA: No [facility] Clinical Frailty Scale (Assessment immediately prior to procedure): 6: Moderately Frail Cardiac Arrest Out of Hospital: No Cardiac Arrest at Transferring Facility: No * Query Response - Alfa Gregory MD - 05/09/2024 1:17 PM EDT Query Response Note CDI QUERY TEXT: Encephalopathy [...] Substance use including Kratom? This morning the patientwas out of it, her daughter reports that [...] Documentation [facility] Information Management Email: If you have any questions or concerns, [...] by: Alfa Gregory MD 05/09/2024 1:15 PM * Plan of Care - Meg Roa RN - 05/09/2024 10:55 AM EDT Problem: Pain Goal: Patient goal is pain score less than 4, able to rest, and participant in treatment plan as appropriate Description: INTERVENTIONS: 1. Encourage patient or legal billing customer service representative to report early pain and ask [...] per policy 9. Teach patient or legal billing customer service representative interventions for comforting Outcome: Progressing Note: [...] at the bedside 7. Instruct patient/ patient billing customer service representative about use of safety devices 8. Include patient/ patient billing customer service representative in decisions related to safety Outcome: [...] hygiene technique. 7. Identify and instruct patient/patient billing customer service representative in use of appropriate isolation precautionsfor identified infection/symptoms. 8. Provide and discuss with patient/patient billing customer service representative on educational MDRO sheet. 9. Encourage and monitor nutritional status daily and consult foam rubber curer if indicated. 10. Implement neutropenic guidelines as needed. Outcome: Progressing Note: Evaluation of progress towards goal: afebrile. No s/s infection noted Problem: Knowledge Deficit Goal: Patient/patient billing customer service representative demonstrates understanding of disease process, treatment [...] Score of =/> 25 or indicated by [facility] Assessment Goal: Patient should be free from fall Description: Interventions: 1. [place] to environment 2. Hourly rounds addressing the [...] non-skid footwear 11. Teach patient and patient billing customer service representative to maintain environment for safety and [...] (cane, walker) within reach 19. Request patient billing customer service representative bring adaptive equipment/mobility aids from home or obtain and provide as needed 20. Consult pharmacy regarding effects of med's affecting mobility, cognition, and alternatives 21. Obtain physician order for PT if risk factors associated with mobility are present 22. Obtain physician order for OT as appropriate 23. Utilize diversional activities 24. Educate patient and patient billing customer service representative how to maintain a safe environment during visitationtimes (notify nurse prior to leaving bedside) 25. Consider appropriateness of medical or non-medical laboratory technician 26. Set up voiding schedule as appropriate [...] supplement as ordered 13. Collaborate with clinical foam rubber curer 14. Include patient/ patient's billing customer service representative in decisions related to nutrition Outcome: [...] supplement as ordered 13. Collaborate with clinical foam rubber curer 14. Include patient/ patient's billing customer service representative in decisions related to nutrition Outcome: [...] hylton intact and draining. Perineal skin intact * Perioperative Nursing Note - Alie Vergara RN - 05/09/2024 6:57 AM EDT Predicted Risk Adjusted CathPCI Bleeding Event Risk Patient's Risk 3.7% National Average 3.3% as of September, In the [place], the average bleeding event risk for all patients undergoing this procedure is3.3%. Taking into account the patient s specific clinical condition, the statistical estimate that the patient may experience a bleeding event is 3.7%. This means that for every 100 patients having a similar clinical makeup, there would be 3.7 that experienced a bleeding event. Bleeding Event is an absolute drop in hemoglobin >= 4g/dL, a RBC transfusion and/or a proceduralintervention/surgery to reverse/stop bleeding that occurs within 72 [...] 188.71 mL/min/1.73m2 Serum Creatinine (SCr) 0.37 mg/dL * Plan of Care - Elle Rinaldi RN - 05/08/2024 9:24 PM EDT Problem: Pain Goal: Patient goal is pain score less than 4, able to rest, and participant in treatment plan as appropriate Description: INTERVENTIONS: 1. Encourage patient or legal billing customer service representative to report early pain and ask [...] per policy 9. Teach patient or legal billing customer service representative interventions for comforting Outcome: Progressing Note: [...] at the bedside 7. Instruct patient/ patient billing customer service representative about use of safety devices 8. Include patient/ patient billing customer service representative in decisions related to safety Outcome: [...] hygiene technique. 7. Identify and instruct patient/patient billing customer service representative in use of appropriate isolation precautionsfor identified infection/symptoms. 8. Provide and discuss with patient/patient billing customer service representative on educational MDRO sheet. 9. Encourage and monitor nutritional status daily and consult foam rubber curer if indicated. 10. Implement neutropenic guidelines as needed. Outcome: Progressing Note: Evaluation of progress towards goal: Pt remained afebrile throughout shift and showed no s/s of infection. Problem: Knowledge Deficit Goal: Patient/patient billing customer service representative demonstrates understanding of disease process, treatment [...] be free from fall Description: Interventions: 1. [place] to environment 2. Hourly rounds addressing the [...] non-skid footwear 11. Teach patient and patient billing customer service representative to maintain environment for safety and [...] (cane, walker) within reach 19. Request patient billing customer service representative bring adaptive equipment/mobility aids from home or obtain and provide as needed 20. Consult pharmacy regarding effects of med's affecting mobility, cognition, and alternatives 21. Obtain physician order for PT if risk factors associated with mobility are present 22. Obtain physician order for OT as appropriate 23. Utilize diversional activities 24. Educate patient and patient billing customer service representative how to maintain a safe environment during visitationtimes (notify nurse prior to leaving bedside) 25. Consider appropriateness of medical or non-medical laboratory technician 26. Set up voiding schedule as appropriate (every 2 hours) Outcome: Progressing Note: Evaluation of progress towards goal: Pt educated on fall risk precautions. Pt used call lightappropriately and safety maintained this shift. Problem: Hemodynamic [...] time. Pt is scheduled for cath tomorrow. * Plan of Care - Meg Roa RN - 05/08/2024 12:19 PM EDT Problem: Pain Goal: Patient goal is pain score less than 4, able to rest, and participant in treatment plan as appropriate Description: INTERVENTIONS: 1. Encourage patient or legal billing customer service representative to report early pain and ask [...] per policy 9. Teach patient or legal billing customer service representative interventions for comforting Outcome: Progressing Note: [...] at the bedside 7. Instruct patient/ patient billing customer service representative about use of safety devices 8. Include patient/ patient billing customer service representative in decisions related to safety Outcome: [...] hygiene technique. 7. Identify and instruct patient/patient billing customer service representative in use of appropriate isolation precautionsfor identified infection/symptoms. 8. Provide and discuss with patient/patient billing customer service representative on educational MDRO sheet. 9. Encourage and monitor nutritional status daily and consult foam rubber curer if indicated. 10. Implement neutropenic guidelines as needed. Outcome: Progressing Note: Evaluation of progress towards goal: afebrile. WBC 10.0 Problem: Knowledge Deficit Goal: Patient/patient billing customer service representative demonstrates understanding of disease process, treatment [...] Score of =/> 25 or indicated by [facility] Assessment Goal: Patient should be free from fall Description: Interventions: 1. [place] to environment 2. Hourly rounds addressing the [...] non-skid footwear 11. Teach patient and patient billing customer service representative to maintain environment for safety and [...] (cane, walker) within reach 19. Request patient billing customer service representative bring adaptive equipment/mobility aids from home or obtain and provide as needed 20. Consult pharmacy regarding effects of med's affecting mobility, cognition, and alternatives 21. Obtain physician order for PT if risk factors associated with mobility are present 22. Obtain physician order for OT as appropriate 23. Utilize diversional activities 24. Educate patient and patient billing customer service representative how to maintain a safe environment during visitationtimes (notify nurse prior to leaving bedside) 25. Consider appropriateness of medical or non-medical laboratory technician 26. Set up voiding schedule as appropriate [...] supplement as ordered 13. Collaborate with clinical foam rubber curer 14. Include patient/ patient's billing customer service representative in decisions related to nutrition Outcome: [...] supplement as ordered 13. Collaborate with clinical foam rubber curer 14. Include patient/ patient's billing customer service representative in decisions related to nutrition Outcome: [...] hylton intact and draining. Perineal skin intact * Plan of Care - Aleksandra Avila RN - 05/08/2024 2:42 AM EDT Problem: Pain Goal: Patient goal is pain score less than 4, able to rest, and participant in treatment plan as appropriate Description: INTERVENTIONS: 1. Encourage patient or legal billing customer service representative to report early pain and ask [...] per policy 9. Teach patient or legal billing customer service representative interventions for comforting Outcome: Progressing Note: [...] at the bedside 7. Instruct patient/ patient billing customer service representative about use of safety devices 8. Include patient/ patient billing customer service representative in decisions related to safety Outcome: [...] hygiene technique. 7. Identify and instruct patient/patient billing customer service representative in use of appropriate isolation precautionsfor identified infection/symptoms. 8. Provide and discuss with patient/patient billing customer service representative on educational MDRO sheet. 9. Encourage and monitor nutritional status daily and consult foam rubber curer if indicated. 10. Implement neutropenic guidelines as needed. Outcome: Progressing Note: Evaluation of progress towards goal: no s/s active infection noted. Afebrile, WBC WNL, invasive lines without redness, drainage, or swelling Problem: Knowledge Deficit Goal: Patient/patient billing customer service representative demonstrates understanding of disease process, treatment [...] Progressing Note: Evaluation of progress towards goal: heel caser following for DC planning when appropriate Problem: Moderate - High Risk Fall Score Description: Lew Fall Score of =/> 25 or indicated by [facility] Assessment Goal: Patient should be free from fall Description: Interventions: 1. [place] to environment 2. Hourly rounds addressing the [...] non-skid footwear 11. Teach patient and patient billing customer service representative to maintain environment for safety and [...] (cane, walker) within reach 19. Request patient billing customer service representative bring adaptive equipment/mobility aids from home or obtain and provide as needed 20. Consult pharmacy regarding effects of med's affecting mobility, cognition, and alternatives 21. Obtain physician order for PT if risk factors associated with mobility are present 22. Obtain physician order for OT as appropriate 23. Utilize diversional activities 24. Educate patient and patient billing customer service representative how to maintain a safe environment during visitationtimes (notify nurse prior to leaving bedside) 25. Consider appropriateness of medical or non-medical laboratory technician 26. Set up voiding schedule as appropriate (every 2 hours) Outcome: Progressing Note: Evaluation of progress towards goal: high fall risk calculated per Lew scale, interventionsin place as charted, no falls this shift Problem: Anxiety Goal: Anxiety is at manageable level Description: Patient's goal is: INTERVENTIONS 1. Assess and monitor patient's anxiety level 2. Monitor for signs and symptoms of anxiety both physical and emotional (heart palpitations, chestpain, shortness of breath, headaches, nausea, feeling jumpy, [...] Collaborate with ancillary departments 14. Include patient/patient billing customer service representative in decisions related to anxiety Outcome: [...] care 6. Collaborate with pastoral/spiritual care, social service worker, mental health counselor as needed. 7. Instruct patient on diversional activities such as physical activity, distraction, and deep breathing exercises to assist with coping 8. Involve patient's billing customer service representative in care Outcome: Progressing Note: Evaluation [...] supplement as ordered 13. Collaborate with clinical foam rubber curer 14. Include patient/ patient's billing customer service representative in decisions related to nutrition Outcome: [...] supplement as ordered 13. Collaborate with clinical foam rubber curer 14. Include patient/ patient's billing customer service representative in decisions related to nutrition Outcome: [...] breakdown in jonathan area skin integrity noted * Plan of Care - Meg Roa RN - 05/07/2024 5:41 PM EDT Problem: Pain Goal: Patient goal is pain score less than 4, able to rest, and participant in treatment plan as appropriate Description: INTERVENTIONS: 1. Encourage patient or legal billing customer service representative to report early pain and ask [...] per policy 9. Teach patient or legal billing customer service representative interventions for comforting Outcome: Progressing Note: [...] at the bedside 7. Instruct patient/ patient billing customer service representative about use of safety devices 8. Include patient/ patient billing customer service representative in decisions related to safety Outcome: [...] hygiene technique. 7. Identify and instruct patient/patient billing customer service representative in use of appropriate isolation precautionsfor identified infection/symptoms. 8. Provide and discuss with patient/patient billing customer service representative on educational MDRO sheet. 9. Encourage and monitor nutritional status daily and consult foam rubber curer if indicated. 10. Implement neutropenic guidelines as needed. Outcome: Progressing Note: Evaluation of progress towards goal: afebrile. WBC 17.7 Problem: Knowledge Deficit Goal: Patient/patient billing customer service representative demonstrates understanding of disease process, treatment [...] be free from fall Description: Interventions: 1. [place] to environment 2. Hourly rounds addressing the [...] non-skid footwear 11. Teach patient and patient billing customer service representative to maintain environment for safety and [...] (cane, walker) within reach 19. Request patient billing customer service representative bring adaptive equipment/mobility aids from home or obtain and provide as needed 20. Consult pharmacy regarding effects of med's affecting mobility, cognition, and alternatives 21. Obtain physician order for PT if risk factors associated with mobility are present 22. Obtain physician order for OT as appropriate 23. Utilize diversional activities 24. Educate patient and patient billing customer service representative how to maintain a safe environment during visitationtimes (notify nurse prior to leaving bedside) 25. Consider appropriateness of medical or non-medical laboratory technician 26. Set up voiding schedule as appropriate (every 2 hours) Outcome: Progressing Note: Evaluation of progress towards goal: free of falls at this time. Fall precautions per policy Problem: Anxiety Goal: Anxiety is at manageable level Description: Patient's goal is: INTERVENTIONS 1. Assess and monitor patient's anxiety level 2. Monitor for signs and symptoms of anxiety both physical and emotional (heart palpitations, chestpain, shortness of breath, headaches, nausea, feeling jumpy, [...] Collaborate with ancillary departments 14. Include patient/patient billing customer service representative in decisions related to anxiety Outcome: [...] supplement as ordered 13. Collaborate with clinical foam rubber curer 14. Include patient/ patient's billing customer service representative in decisions related to nutrition Outcome: Progressing Note: Evaluation of progress towards goal: npo for cardiac cath * Pre-Sedation Documentation - Gilberto Zepeda MD - 05/07/2024 4:47 PM EDT Pre Procedure Evaluation: H&P was reviewed and the patient was examined. No change has occurredin the patient's condition since the H&P was completed. ASA: 6 Emergent Mallampati: Unable to assess Indication(s) for Die Maintenance Visit: ACS <= 24 hrs and Cardiomyopathy [...] at Transferring Facility: [facility] of Present illness Narrative* Konrad Mix MD - 05/17/2024 2:47 PM EDT Images from the original note were not included. [facility] [address] ACUTE [address] [facility] [id number] Hospital Medicine Progress Note Patient: Alie Briones Date of : 1960 Room: [place] [address] PCP: ROSITA Lance Admission date: 05/07/2024 3:54 PM Encounter date: 05/17/24 Hospital Day: 11 SUBJECTIVE Chief complaints: No chief complaint on file. Interval History: Resting in bed, family at bedside, patient remains medically ready for discharge at this time. [facility] still working on placement. Review of Systems [...] 152.4 cm (5') Wt 42.8 kg (94 lb5.7 oz) Comment: PT refused standing weight, RN [...] acquired with electrodes placed according to the [id number] electrode placement system. The EEG was acquired andreviewed using multiple, reformattable montages. A single EKG channel was recorded for cardiac rhythm monitoring. Technical description: This EEG is recorded during sleep. No wakefulness was recorded. Background is composed of 5-10 V diffuse beta frequency intermixed with 20-30 V delta frequency. The re is no alpha frequency or posterior dominant rhythm. No epileptiform abnormalities are noted inthe form of spikes or sharp waves. No [...] of intermittent seizures. Kat Marquez M.D., Ph.D. Rn Lactation Consultant PA Neurology Cardiac Invasive Result Date: 05/10/2024 Narrative: [...] aggressive medical management. Recommend follow-up with primary captain/airline pilot outpatient. Echo limited W/O contrast Result Date: 05/08/2024 Narrative: Left Ventricle: Left ventricle appears normal in size. Systolic function is moderately to severely decreased with an ejection fraction of 30- 35%. Aortic Valve: There is no regurgitation orstenosis. Mitral Valve: There is [id number] regurgitation. There is no evidence of mitral valve stenosis. Tricuspid Valve: There is trace regurgitation. There is no evidence of tricuspid valve stenosis. Cardiac Invasive Result Date: 05/08/2024 Narrative: Successful placement of temporary pacing wire for the indication of complete heart blockSevere multivessel coronary artery disease Successful placement of 1 drug-eluting stent to proximalto mid LAD with intravascular ultrasound assistance showing [...] fracture or dislocation. There is slight anterolisthesis C3- C4. The spinal canal is patent. No prevertebral [...] LIST Principal Problem: CHB (complete heart block) ([facility]) Active Problems: HTN (hypertension) ST elevation myocardial infarction (STEMI) (CMS-HCC) Coronary artery disease involving [place] coronary artery of [place] heart Mixed hyperlipidemia ASSESSMENT & PLAN Complete heart block in setting of STEMI with recurrent syncope, resolved, now with LAFB/RBBB Electrophysiology signed off, no plans for pacemaker at this time. Recommended discharging with outpatient 30 day MCOT to evaluate for any further episodes of high-degree heart block. Can follow-up with EP for primary prevention ICD/CITY DISTRIBUTION CLERK if EF remains less than 30% after [...] vest fitting. MARCIAL Casey 05/17/2024 2:47 PM [facility] 7AM-7PM & 7PM-7AM: EpicChat or page through On-Call F[employer]. MARCIAL Palacios 05/17/24 1451 I, Konrad Mix MD, personally performed the face to face diagnostic evaluation on this patient. I have reviewed the LOBITO's History, Exam, and MDM and agree with the assessment and plan as written. * Saran Samayoa - 05/17/2024 2:45 PM EDT Cardiac Rehab Type of Visit: Refused (see comments) (Pt is currently asleep and would like to rest. I will followup with pt.) Assessment Vitals: 05/17/24 0805 05/17/24 0811 05/17/24 1204 Pulse: 81 77 Heart Rate Source: Monitor Monitor Resp: 16 14 BP: 94/50 112/64 BP Location: Left arm Left arm BP Method: Automatic Automatic Patient Position: SpO2: 97% 98% O2 Device: None (Room air) None (Room air) None (Room air) O2 Flow Rate (L/min): 0 L/min 0 L/min * Hannah Sue Student [place] - 05/17/2024 12:50 PM EDT Physical Therapy Treatment Discharge Recommendations PT Recommendations: Long-Term Facility Therapy Plan 6 Clicks: Basic Mobility [...] Gait belt, RW, chair alarm, bed alarm Telemetry/Certification Officer: Yes Other Cardiac Monitoring Devices: Cardiac Life Vest Other: High fall risk, h/o falls, CIWA protocol, delirium/dementia precautions, 1500mL fluid restriction, bed/chair alarm Pain Assessment Pain Assessment: No/denies pain Bed Mobility Rolling: Stand by assist Supine to Sit: Stand by assist Other: Pt in bed upon arrival. Pt was able to complete bed mobility at [facility] for safety. Pt left seated in chair with chair alarm on and call light in reach. Transfers Sit to Stand: Contact guard assist Stand to Sit: Contact guard assist Toilet Transfers: Contact guard assist Other: Pt completed STS transfer with RW for BUE support at [facility] for safety. Multiple verbal cues needed for proper hand placement and stay with in the RW. Slight unsteadiness noted but no LOB. Gait Base of Support: Narrow Pattern: Decreased leydi Gait Assistance: Contact guard assist Assistive Device: Rolling walker Gait Distance: 70ft x2 plus 10ft Limiting Factors to Gait: Fatigue, Weakness, Decreased safety Other: Pt ambulated within halls at [facility] for safety. Pt used RW [...] User Outcome 05/17/24 1000 Hannah Sue, Student [place] Progressing 05/15/24 114Ivanna Mitchell PTA Progressing 05/13/24 1259 Ivanna Murray, [place] Progressing Goal Note filed on 05/17/24 1000 by Hannah Sue Student [place] Evaluation of progress towards goal: Problem: Bed Mobility Dates: Start: 05/11/24 Disciplines: PT Goal: Patient will perform bed mobility with Modified [place] Dates: Start: 05/11/24 Expected End: 05/31/24 Description: Goal Description: with proper BUE placement and sequencing Disciplines: PT Outcomes Date/Time User Outcome 05/17/24 1000 Hannah Sue, Student [place] Progressing 05/13/24 125Les Murray [place] Progressing Goal Note filed on 05/17/24 1000 by Hannah Sue Student [place] Evaluation of progress towards goal: Problem: Gait Dates: Start: 05/11/24 Disciplines: PT Goal: Patient will perform gait with Modified [place] Dates: Start: 05/11/24 Expected End: 05/31/24 Description: With__RW__,__100__feet Goal Description: with proper gait pattern and safety awareness Disciplines: PT Outcomes Date/Time User Outcome 05/17/24 1000 Hannah Sue, Student [place] Progressing 05/15/24 114Ivanna Mitchell PTA Progressing 05/13/24 1259 Ivanna Orange, [place] Progressing Goal Note filed on 05/17/24 1000 by Hannah Sue, Student [place] Evaluation of progress towards goal: Problem: Stairs/Curb Dates: Start: 05/11/24 Disciplines: PT Goal: Patient will perform stairs/curb with Modified [place] Dates: Start: 05/11/24 Expected End: 05/31/24 Description: __3___steps,__w/o___hand rails Goal Description: for safer entry into home Disciplines: PT Outcomes Date/Time User Outcome 05/17/24 1000 Hannah Sue, Student [place] Progressing Goal Note filed on 05/17/24 1000 by Hannah Sue, Student [place] Evaluation of progress towards goal: Problem: Standing Balance Dates: Start: 05/11/24 Disciplines: PT Goal: Improve balance to normal Dates: Start: 05/11/24 Expected End: 05/31/24 Description: Static/Dynamic to reduce risk of falls with all functional tasks Disciplines: PT Outcomes Date/Time User Outcome 05/17/24 1000 Hannah Sue, Student [place] Progressing 05/15/24 1140 Rashi Mitchell [place] Progressing 05/14/24 0946 Hannah Sue, Student [place] Progressing 05/13/24 1259 Ivanna Murray, [place] Progressing Goal Note filed on 05/17/24 1000 by Hannah Sue, Student [place] Evaluation of progress towards goal: Problem: Strength Dates: Start: 05/11/24 Disciplines: PT Goal: Improve strength Dates: Start: 05/11/24 Expected End: 05/31/24 Description: Of extremity/ location: BLE strength to WFL To facilitate: Safer functional mobility tasks Disciplines: PT Outcomes Date/Time User Outcome 05/17/24 1000 Hannah Sue, Student [place] Progressing 05/15/24 1140 Rashi Mitchell PTA Progressing 05/14/24 0946 Hannah Sue, Student [place] Progressing 05/13/24 1259 Ivanna Murray, [place] Progressing Goal Note filed on 05/17/24 1000 by Urvashi Hartmann [place] Evaluation of progress towards goal: Problem: Transfers Dates: Start: 05/11/24 Disciplines: PT Goal: Patient will perform transfers with Modified [place] Dates: Start: 05/11/24 Expected End: 05/31/24 Description: Goal Description: with proper BUE placement and sequencing Disciplines: PT Outcomes Date/Time User Outcome 05/17/24 1000 Urvashi Hartmann [place] Progressing 05/15/24 1140 Rashi Mitchell, [place] Progressing 05/13/24 1259 Ivanna Murray, [place] Progressing Goal Note filed on 05/17/24 1000 by Urvashi Hartmann [place] Evaluation of progress towards goal: Physical Therapy Care Plan (Resolved) There are no resolved problems. Principal Problem: CHB (complete heart block) ([facility]) Active Problems: HTN (hypertension) ST elevation myocardial infarction (STEMI) ([facility]) Coronary artery disease involving [place] coronary artery of [place] heart Mixed hyperlipidemia Cosigned by Janae Shaffer PT at 05/17/2024 3:34 PM EDT Associated attestation - Janae Shaffer PT - 05/17/2024 3:34 PM EDT I have reviewed and agree with this note and education documentation for this visit. * Konrad Mix MD - 05/16/2024 12:37 PM EDT Images from the original note were not included. [facility] INTERNAL MEDICINE [address] ACUTE [address] [facility] [address] Hospital Medicine Progress Note Patient: Alie Briones Date of : 1960 Room: [id number] PCP: ROSITA Lance Admission date: 05/07/2024 3:54 [...] acquired with electrodes placed according to the Deyvragwyltas13-30 electrode placement system. The EEG was acquired andreviewed using multiple, reformattable montages. A single EKG channel was recorded for cardiac rhythm monitoring. Technical description: This EEG is recorded during sleep. No wakefulness was recorded. Background is composed of 5-10 V diffuse beta frequency intermixed with 20-30 V delta frequency. The re is no alpha frequency or posterior dominant rhythm. No epileptiform abnormalities are noted inthe form of spikes or sharp waves. No [...] of intermittent seizures. Kat Marquez M.D., Ph.D. Rn Lactation Consultant PA Neurology Cardiac Invasive Result Date: 05/10/2024 Narrative: [...] aggressive medical management. Recommend follow-up with primary captain/airline pilot outpatient. Echo limited W/O contrast Result Date: 05/08/2024 Narrative: Left Ventricle: Left ventricle appears normal in size. Systolic function is moderately to severely decreased with an ejection fraction of 30- 35%. Aortic Valve: There is no regurgitation orstenosis. Mitral Valve: There is rkwko-cb-rerf regurgitation. There is no evidence of mitral valve stenosis. Tricuspid Valve: There is trace regurgitation. There is no evidence of tricuspid valve stenosis. Cardiac Invasive Result Date: 05/08/2024 Narrative: Successful placement of temporary pacing wire for the indication of complete heart blockSevere multivessel coronary artery disease Successful placement of 1 drug-eluting stent to proximalto mid LAD with intravascular ultrasound assistance showing [...] fracture or dislocation. There is slight anterolisthesis C3- C4. The spinal canal is patent. No prevertebral [...] LIST Principal Problem: CHB (complete heart block) ([facility]) Active Problems: HTN (hypertension) ST elevation myocardial infarction (STEMI) ([facility]) Coronary artery disease involving [place] coronary artery of [place] heart Mixed hyperlipidemia ASSESSMENT & PLAN Complete heart block in setting of STEMI with recurrent syncope, resolved, now with LAFB/RBBB Electrophysiology signed off, no plans for pacemaker at this time. Recommended discharging with outpatient 30 day MCOT to evaluate for any further episodes of high-degree heart block. Can follow-up with EP for primary prevention ICD/CITY DISTRIBUTION CLERK if EF remains less than 30% after [...] MARCIAL Casey 05/16/2024 12:37 PM [facility] Internal Medicine 7AM-7PM & 7PM-7AM: EpicChat or page through On-Call Finder. MARCIAL Palacios 05/16/24 1242 I, Konrad Mix MD, personally performed the face to face diagnostic evaluation on this patient. I have reviewed the LOBITO's History, Exam, and MDM and agree with the assessment and plan as written. * Saran Samayoa - 05/16/2024 9:25 AM EDT Cardiac Rehab Discharge Recommendations Post Discharge Therapy [...] Assistive Device: Rolling walker Gait Distance: 400' * Konrad Mix MD - 05/15/2024 4:38 PM EDT Images from the original note were not included. [facility] INTERNAL MEDICINE [facility] [address] [facility] [address] Hospital Medicine Progress Note Patient: Alie Briones Date of : 1960 Room: [place] [address] PCP: ROSITA Lance Admission date: 05/07/2024 3:54 PM Encounter date: 05/15/24 Hospital Day: 9 SUBJECTIVE Chief complaints: No chief complaint on file. Interval History: Resting in bed, awaiting alf facility placement, remains medically ready for discharge [...] acquired with electrodes placed according to the Pidwjmjpwhgwa14-58 electrode placement system. The EEG was acquired andreviewed using multiple, reformattable montages. A single EKG channel was recorded for cardiac rhythm monitoring. Technical description: This EEG is recorded during sleep. No wakefulness was recorded. Background is composed of 5-10 V diffuse beta frequency intermixed with 20-30 V delta frequency. The re is no alpha frequency or posterior dominant rhythm. No epileptiform abnormalities are noted inthe form of spikes or sharp waves. No [...] of intermittent seizures. Kat Marquez M.D., Ph.D. Rn Lactation Consultant PA Neurology Cardiac Invasive Result Date: 05/10/2024 Narrative: [...] aggressive medical management. Recommend follow-up with primary captain/airline pilot outpatient. Echo limited W/O contrast Result Date: 05/08/2024 Narrative: Left Ventricle: Left ventricle appears normal in size. Systolic function is moderately to severely decreased with an ejection fraction of 30- 35%. Aortic Valve: There is no regurgitation orstenosis. Mitral Valve: There is taqrr-wc-gjyj regurgitation. There is no evidence of mitral valve stenosis. Tricuspid Valve: There is trace regurgitation. There is no evidence of tricuspid valve stenosis. Cardiac Invasive Result Date: 05/08/2024 Narrative: Successful placement of temporary pacing wire for the indication of complete heart blockSevere multivessel coronary artery disease Successful placement of 1 drug-eluting stent to proximalto mid LAD with intravascular ultrasound assistance showing [...] fracture or dislocation. There is slight anterolisthesis C3- C4. The spinal canal is patent. No prevertebral [...] LIST Principal Problem: CHB (complete heart block) ([facility]) Active Problems: HTN (hypertension) ST elevation myocardial infarction (STEMI) ([facility]) Coronary artery disease involving [place] coronary artery of [place] heart Mixed hyperlipidemia ASSESSMENT & PLAN Complete heart block in setting of STEMI with recurrent syncope, resolved, now with LAFB/RBBB Electrophysiology signed off, no plans for pacemaker at this time. Recommended discharging with outpatient 30 day MCOT to evaluate for any further episodes of high-degree heart block. Can follow-up with EP for primary prevention ICD/CITY DISTRIBUTION CLERK if EF remains less than 30% after [...] after life vest fitting. Aniceto German APRN-SHADI 05/15/2024 4:38 PM [facility] 7AM-7PM & 7PM-7AM: EpicChat or page through On-Call Finder. Aniceto eGrman APRN-SHADI 05/15/24 1640 IKonrad MD, personally performed the face to face diagnostic evaluation on this patient. I have reviewed the LOBITO's History, Exam, and MDM and agree with the assessment and plan as written. * Saran Samayoa - 05/15/2024 2:30 PM EDT Cardiac Rehab Discharge Recommendations Post Discharge Therapy [...] None Gait Distance: 20' (ambulating around room) * Massiel Atwood DO - 05/14/2024 2:53 PM EDT Images from the original note [...] heart block and hypotension. Uric acid was 3.7,TSH 1.49 and free T4 was 1.07, cortisol was 15.2, serum osmolality was 256, random urine sodium wasless than 10 and random urine osmolality was 353 Complete heart block status post temporary pacing wire placement on May 07, 2024 ST-elevation ND from April of 2024 status post cardiac [...] to mid LAD which was successfully stented, 40%mid to distal left circumflex, 85% 2nd obtuse [...] 17 04/06/2024 Please contact me at [phone] (Office) or [phone] (Answering service) with any questions. Please feel free to contact me through [employer] Secure chat during the daytime hours, if no response after 5 minutes then call the answering service. MASSIEL ATWOOD D.O. [facility] This note was created with the assistance of a speech-recognition program. Although the intention is to generate a document that actually reflects the content of the visit, no guarantees can be provided that every mistake has been identified and corrected by editing. * Hannah Sue, Student [place] - 05/14/2024 2:48 PM EDT Physical Therapy Treatment Discharge Recommendations PT Recommendations: Long-Term Facility Therapy Plan 6 Clicks: Basic Mobility [...] okay to see per RN Pacemaker/ICD: Pacemaker Telemetry/Certification Officer: Yes Other Cardiac Monitoring Devices: Cardiac Life [...] Date/Time User Outcome 05/13/24 1259 Ivannawinter Murray, [place] Progressing Goal Note filed on 05/14/24 0946 by Hannah Sue, Student [place] Evaluation of progress towards goal: Problem: Bed Mobility Dates: Start: 05/11/24 Disciplines: PT Goal: Patient will perform bed mobility with Modified [place] Dates: Start: 05/11/24 Expected End: 05/31/24 Description: Goal Description: with proper BUE placement and sequencing Disciplines: PT Outcomes Date/Time User Outcome 05/13/24 1259 Ivannawinter Murray, [place] Progressing Goal Note filed on 05/14/24 0946 by Hannah Sue, Student [place] Evaluation of progress towards goal: Problem: Gait Dates: Start: 05/11/24 Disciplines: PT Goal: Patient will perform gait with Modified [place] Dates: Start: 05/11/24 Expected End: 05/31/24 Description: With__RW__,__100__feet Goal Description: with proper gait pattern and safety awareness Disciplines: PT Outcomes Date/Time User Outcome 05/13/24 1259 Ivannawinter Murray, [place] Progressing Goal Note filed on 05/14/24 0946 by Hannah Sue, Student [place] Evaluation of progress towards goal: Problem: Stairs/Curb Dates: Start: 05/11/24 Disciplines: PT Goal: Patient will perform stairs/curb with Modified [place] Dates: Start: 05/11/24 Expected End: 05/31/24 Description: __3___steps,__w/o___hand rails Goal Description: for safer entry into home Disciplines: PT Goal Note filed on 05/14/24945 by Urvashi Hartmann [place] Evaluation of progress towards goal: Problem: Standing Balance Dates: Start: 05/11/24 Disciplines: PT Goal: Improve balance to normal Dates: Start: 05/11/24 Expected End: 05/31/24 Description: Static/Dynamic to reduce risk of falls with all functional tasks Disciplines: PT Outcomes Date/Time User Outcome 05/14/24945 Hannah Sue Student [place] Progressing 05/13/24 125Les Murray [place] Progressing Goal Note filed on 05/14/24945 by Hannah Sue Student [place] Evaluation of progress towards goal: Problem: Strength Dates: Start: 05/11/24 Disciplines: PT Goal: Improve strength Dates: Start: 05/11/24 Expected End: 05/31/24 Description: Of extremity/ location: BLE strength to WFL To facilitate: Safer functional mobility tasks Disciplines: PT Outcomes Date/Time User Outcome 05/14/24945 Hannah Sue Student [place] Progressing 05/13/24 125Les Murray [place] Progressing Goal Note filed on 05/14/24 09 by Hannah Sue Student [place] Evaluation of progress towards goal: Problem: Transfers Dates: Start: 05/11/24 Disciplines: PT Goal: Patient will perform transfers with Modified [place] Dates: Start: 05/11/24 Expected End: 05/31/24 Description: Goal Description: with proper BUE placement and sequencing Disciplines: PT Outcomes Date/Time User Outcome 05/13/24 Hayden Murray PTA Progressing Goal Note filed on 05/14/24 0946 by Hannah Sue, Student [place] Evaluation of progress towards goal: Physical Therapy Care Plan (Resolved) There are no resolved problems. Principal Problem: CHB (complete heart block) ([facility]) Active Problems: HTN (hypertension) ST elevation myocardial infarction (STEMI) ([facility]) Coronary artery disease involving [place] coronary artery of [place] heart Mixed hyperlipidemia Cosigned by Janae Shaffer, PT at 05/15/2024 11:14 AM EDT Associated attestation - Janae Shaffer, PT - 05/15/2024 11:14 AM EDT I have reviewed and agree with this note and education documentation for this visit. * Konrad Mix MD - 05/14/2024 12:35 PM EDT Images from the original note were not included. [facility] [address] ACUTE [address] [facility] [address] Hospital Medicine Progress Note Patient: Alie Briones Date of : 1960 Room: [place] [address] PCP: ROSITA Lance Admission date: 05/07/2024 3:54 PM Encounter date: 05/14/24 Hospital Day: 8 SUBJECTIVE Chief complaints: No chief complaint on file. Interval History: Resting in bed, awaiting alf facility placement, medically ready for discharge at [...] acquired with electrodes placed according to the Bearyydyjsyua88-97 electrode placement system. The EEG was acquired andreviewed using multiple, reformattable montages. A single EKG channel was recorded for cardiac rhythm monitoring. Technical description: This EEG is recorded during sleep. No wakefulness was recorded. Background is composed of 5-10 V diffuse beta frequency intermixed with 20-30 V delta frequency. The re is no alpha frequency or posterior dominant rhythm. No epileptiform abnormalities are noted inthe form of spikes or sharp waves. No [...] of intermittent seizures. Kat Marquez M.D., Ph.D. Rn Lactation Consultant PA Neurology Cardiac Invasive Result Date: 05/10/2024 Narrative: [...] aggressive medical management. Recommend follow-up with primary captain/airline pilot outpatient. Echo limited W/O contrast Result Date: 05/08/2024 Narrative: Left Ventricle: Left ventricle appears normal in size. Systolic function is moderately to severely decreased with an ejection fraction of 30- 35%. Aortic Valve: There is no regurgitation orstenosis. Mitral Valve: There is xmyxn-pn-zgir regurgitation. There is no evidence of mitral valve stenosis. Tricuspid Valve: There is trace regurgitation. There is no evidence of tricuspid valve stenosis. Cardiac Invasive Result Date: 05/08/2024 Narrative: Successful placement of temporary pacing wire for the indication of complete heart blockSevere multivessel coronary artery disease Successful placement of 1 drug-eluting stent to proximalto mid LAD with intravascular ultrasound assistance showing [...] fracture or dislocation. There is slight anterolisthesis C3- C4. The spinal canal is patent. No prevertebral [...] LIST Principal Problem: CHB (complete heart block) (CMS-HCC) Active Problems: HTN (hypertension) ST elevation myocardial infarction (STEMI) (CMS-HCC) Coronary artery disease involving [place] coronary artery of [place] heart Mixed hyperlipidemia ASSESSMENT & PLAN Complete heart block in setting of STEMI with recurrent syncope, resolved, now with LAFB/RBBB Electrophysiology signed off, no plans for pacemaker at this time. Recommended discharging with outpatient 30 day MCOT to evaluate for any further episodes of high-degree heart block. Can follow-up with EP for primary prevention ICD/CITY DISTRIBUTION CLERK if EF remains less than 30% after [...] vest fitting. MARCIAL Casey 05/14/2024 12:35 PM [facility] Internal Medicine 7AM-7PM & 7PM-7AM: EpicChat or page through On-Call Finder. MARCIAL Palacios 05/14/24 1237 I, Konrad Mix MD, personally performed the face to face diagnostic evaluation on this patient. I have reviewed the LOBITO's History, Exam, and MDM and agree with the assessment and plan as written. * Konrad Mix MD - 05/13/2024 5:54 PM EDT Images from the original note were not included. [facility] [address] ACUTE [address] [facility] [address] Hospital Medicine Progress Note Patient: Alie Briones Date of : 1960 Room: [place] [address] PCP: ROSITA Lance Admission date: 05/07/2024 3:54 [...] 152.4 cm (5') Wt 43.4 kg (95 lb10.9 oz) SpO2 99% BMI 18.69 kg/m Temp: [...] acquired with electrodes placed according to the Qrmehmxajuzzz73-10 electrode placement system. The EEG was acquired andreviewed using multiple, reformattable montages. A single EKG channel was recorded for cardiac rhythm monitoring. Technical description: This EEG is recorded during sleep. No wakefulness was recorded. Background is composed of 5-10 V diffuse beta frequency intermixed with 20-30 V delta frequency. The re is no alpha frequency or posterior dominant rhythm. No epileptiform abnormalities are noted inthe form of spikes or sharp waves. No [...] of intermittent seizures. Kat Marquez M.D., Ph.D. Rn Lactation Consultant PA Neurology Cardiac Invasive Result Date: 05/10/2024 Narrative: [...] aggressive medical management. Recommend follow-up with primary captain/airline pilot outpatient. Echo limited W/O contrast Result Date: 05/08/2024 Narrative: Left Ventricle: Left ventricle appears normal in size. Systolic function is moderately to severely decreased with an ejection fraction of 30- 35%. Aortic Valve: There is no regurgitation orstenosis. Mitral Valve: There is adefc-dy-vllv regurgitation. There is no evidence of mitral valve stenosis. Tricuspid Valve: There is trace regurgitation. There is no evidence of tricuspid valve stenosis. Cardiac Invasive Result Date: 05/08/2024 Narrative: Successful placement of temporary pacing wire for the indication of complete heart blockSevere multivessel coronary artery disease Successful placement of 1 drug-eluting stent to proximalto mid LAD with intravascular ultrasound assistance showing [...] fracture or dislocation. There is slight anterolisthesis C3- C4. The spinal canal is patent. No prevertebral [...] LIST Principal Problem: CHB (complete heart block) ([facility]) Active Problems: HTN (hypertension) ST elevation myocardial infarction (STEMI) ([facility]) Coronary artery disease involving [place] coronary artery of [place] heart Mixed hyperlipidemia ASSESSMENT & PLAN Complete heart block in setting of STEMI with recurrent syncope, resolved, now with LAFB/RBBB Electrophysiology signed off, no plans for pacemaker at this time. Recommended discharging with outpatient 30 day MCOT to evaluate for any further episodes of high-degree heart block. Can follow-up with EP for primary prevention ICD/CITY DISTRIBUTION CLERK if EF remains less than 30% after [...] MARCIAL Casey 05/13/2024 5:54 PM [facility] Internal Medicine 7AM-7PM & 7PM-7AM: EpicChat or page through On-Call Finder. MARCIAL Palacios 05/13/24 3618 I, Konrad Mix MD, personally performed the face to face diagnostic evaluation on this patient. I have reviewed the LOBITO's History, Exam, and MDM and agree with the assessment and plan as written. * MARCIAL Mensah - 05/13/2024 1:01 PM EDT NEPHROLOGY PROGRESS NOTE Assessment Hypovolemic hyponatremia: Sodium level continues to improve. Continue fluid restriction. Hypertension: Blood pressure is adequately controlled.. Complete heart block status post temporary pacing wire placement ST-elevation ND status post stenting to the LAD on May 07 and subsequent stenting to the 2nd obtuse marginal on May 09. Plan Renal panel daily Strict intake output Daily weights Continue fluid restriction Subjective/ interval history no events resting in bed denies any issues Problem List Hypovolemic hyponatremia in the setting of complete heart block and hypotension. Uric acid was 3.7,TSH 1.49 and free T4 was 1.07, cortisol was 15.2, serum osmolality was 256, random urine sodium wasless than 10 and random urine osmolality was 353 Complete heart block status post temporary pacing wire placement on May 07, 2024 ST-elevation ND from April of 2024 status post cardiac [...] to mid LAD which was successfully stented, 40%mid to distal left circumflex, 85% 2nd obtuse [...] days Lab Units 05/13/2452605/12/24 2126 05/12/24 1307 05/12/2452 05/11/24 1249 05/11/24 0557 SODIUM mmol/L 133* [...] from last 7 days Lab Units 05/13/2452605/12/24 1307 05/12/24 0552 MAGNESIUM mg/dL 2.1 2.9* 1.8 Lab Results Component Value Date CALCIUM 8.6 05/13/2024 Lab Results Component Value Date IRON 30 (L) 04/06/2024 TIBC 358 04/06/2024 FERRITIN 17 04/06/2024 Please contact me at [phone] (Office) or [phone] (Answering service) with any questions. Please feel free to contact me through [employer] Secure chat during the daytime hours, if no response after 5 minutes then call the answering service. MARCIAL Ryan [facility] This note was created with the assistance of a speech-recognition program. Although the intention is to generate a document that actually reflects the content of the visit, no guarantees can be provided that every mistake has been identified and corrected by editing. MARCIAL Mensah 05/13/24 1317 * Saran Dao Samayoa - 05/13/2024 10:10 AM EDT Cardiac Rehab Discharge Recommendations Post Discharge Therapy Recommendations: Outpatient Cardiac Rehabilitation ([facility]) Therapy Plan Patient Response to [...] 80' Limiting Factors to Gait: Weakness, Fatigue * Kameron Brown RN - 05/12/2024 11:36 AM EDT Images from the original note were not included. FOLLOW-UP: Post-Intensive Care Rounding Note Patient: Alie Briones : 1960 Age: 63 y.o. Length of Stay: 5 days Admission Diagnosis: CHB (complete heart block) ([facility]) [I44.2] Acute electrocardiogram changes [R94.31] ST elevation ND (STEMI) ([facility]) [I21.3] Reviewing patient due to her recent transfer out from Intensive Care. Recorded vital signs are stable and the patient is not noted to be in any apparent distress. Telemetry and monitoring noted. Staff may call with any issues or concerns regarding her clinical presentation or stability. Thank you, Kameron Brown RN Rapid Response: [facility] * Ivette Galicia MD - 05/12/2024 10:30 AM EDT Images from the original note were not included. [facility] INTERNAL MEDICINE [facility] 6[address] ACUTE [address] [facility] [address] Hospital Medicine Progress Note Patient: Alie Briones Date of : 1960 Room: [place] [address] PCP: ROSITA Lance Admission date: 05/07/2024 3:54 [...] acquired with electrodes placed according to the Nfmhgncefhmia53-02 electrode placement system. The EEG was acquired andreviewed using multiple, reformattable montages. A single EKG channel was recorded for cardiac rhythm monitoring. Technical description: This EEG is recorded during sleep. No wakefulness was recorded. Background is composed of 5-10 V diffuse beta frequency intermixed with 20-30 V delta frequency. The re is no alpha frequency or posterior dominant rhythm. No epileptiform abnormalities are noted inthe form of spikes or sharp waves. No [...] of intermittent seizures. Kat Marquez M.D., Ph.D. Rn Lactation Consultant PA Neurology Cardiac Invasive Result Date: 05/10/2024 Narrative: [...] aggressive medical management. Recommend follow-up with primary captain/airline pilot outpatient. Echo limited W/O contrast Result Date: 05/08/2024 Narrative: Left Ventricle: Left ventricle appears normal in size. Systolic function is moderately to severely decreased with an ejection fraction of 30- 35%. Aortic Valve: There is no regurgitation orstenosis. Mitral Valve: There is aybdc-ii-ypup regurgitation. There is no evidence of mitral valve stenosis. Tricuspid Valve: There is trace regurgitation. There is no evidence of tricuspid valve stenosis. Cardiac Invasive Result Date: 05/08/2024 Narrative: Successful placement of temporary pacing wire for the indication of complete heart blockSevere multivessel coronary artery disease Successful placement of 1 drug-eluting stent to proximalto mid LAD with intravascular ultrasound assistance showing [...] fracture or dislocation. There is slight anterolisthesis C3- C4. The spinal canal is patent. No prevertebral [...] LIST Principal Problem: CHB (complete heart block) ([facility]) Active Problems: HTN (hypertension) ST elevation myocardial infarction (STEMI) ([facility]) Coronary artery disease involving [place] coronary artery of [place] heart Mixed hyperlipidemia ASSESSMENT & PLAN Complete heart block in setting of STEMI with recurrent syncope, resolved, now with LAFB/RBBB Electrophysiology signed off, no plans for pacemaker at this time. Recommended discharging with outpatient 30 day MCOT to evaluate for any further episodes of high-degree heart block. Can follow-up with EP for primary prevention ICD/CITY DISTRIBUTION CLERK if EF remains less than 30% after [...] fitting. MARCIAL CUELLAR 05/12/2024 1:52 PM [facility] Internal Medicine 7AM-7PM & 7PM-7AM: EpicChat or page through On-Call Finder. MARCIAL Cuellar 05/12/24 9895 I have seen and evaluated the patient, and have reviewed the history above and agree. I have repeated the carrington portions of the physical exam and concur with the LOBITO findings. I have reviewed all laboratory findings and imaging reports/films. I agree with the plan as noted above Dr Ivette Galicia MD, MRCP 05/12/2024 5:39 PM * MARCIAL Croft - 05/12/2024 7:26 AM EDT Images from the original note were not included. Nephrology Daily Progress Note Assessment Hypovolemic hyponatremia: Received IV LR now discontinued. Now continues on fluid restriction 1.5 L Hypotension: Resolved. Complete heart block status post temporary pacing wire placement ST-elevation ND status post stenting to the LAD on [...] heart block and hypotension. Uric acid was 3.7,TSH 1.49 and free T4 was 1.07, cortisol was 15.2, serum osmolality was 256, random urine sodium wasless than 10 and random urine osmolality was 353 Complete heart block status post temporary pacing wire placement on May 07, 2024 ST-elevation ND from April of 2024 status post cardiac [...] to mid LAD which was successfully stented, 40%mid to distal left circumflex, 85% 2nd obtuse [...] 04/06/2024 Brandt Quezada CNP [facility] Thank you for your consultation and allowing us to participate in the care of Alie Barksdale and please do not hesitate to call us with any questions at: Office: [phone] Office Answering Service: [phone] This note was created with the assistance of a speech-recognition program. Although the intention is to generate a document that actually reflects the content of the visit, no guarantees can be provided that every mistake has been identified and corrected by editing. MARCIAL Croft 05/12/24 0727 * Berta Kang MD - 05/12/2024 7:03 AM EDT Images from the original note were not included. [facility] C[facility] ACADEMIC SERVICE PROGRESS NOTE Alie Briones SUBJECTIVE Subjective History of Present Illness: Alie Briones is a 63 y.o. female with a past medical history of hypertension, HLD, osteoarthritis of cervical spine, and cervical spondylosis without myelopathy, who presented to [facility] ED for a fall. Per the patient she had crushing chest pain this morning which she rates an 8/10. She said after the pressure she started getting light headed, dizzy, and fell but never lost consciousness. The patient reports having the chest pain for several days. In the [facility] ED the patient was afebrile, HR 80, RR 18, and BP 103/55. No labs were drawn. EKG showed concerns for heart block and left and right bundle branch blocks. CT brain and CT cervical spine showed no acute intracranial findings. CXR and hip xray showed no acute findings. Cardiology was consulted and patient was transferred to [facility]. Once the patient arrived at [facility] repeat EKG showed anterior lead ST segment elevations. Patient keptcycling back and forth between heart block and sinus tachycardia. On echo, patient was having apical wall motion abnormalities. Patient was urgently taken to field laboratory operator. Interval Hx: 05/12/24: No acute overnight events. This morning the patient endorses having some constant mild chest pain. She describes it as pressure and rates it a 3/10. She endorses constant SOB as well but issaturating well on room air. She denies any [...] MD Internal Medicine, PGY-1 05/12/2024 10:10 AM [facility] TEACHING SERVICE This note was completed using a voice spanish translator system. Every effort was made to ensure accuracy. However, inadvertent computerized spanish translator errors may be present. Cosigned by Karlo [...] This note was completed using a voice spanish translator system. Every effort was made to ensure accuracy. However, inadvertent computerized spanish translator errors may be present. * José Rivera Jr., RN - 05/11/2024 8:50 PM EDT Images from the original note were not included. FOLLOW-UP: Post-Intensive Care Rounding Note Patient: Alie Briones : 1960 Age: 63 y.o. Length of Stay: 5 days Admission Diagnosis: CHB (complete heart block) (CMS-HCC) [I44.2] Acute electrocardiogram changes [R94.31] ST elevation ND (STEMI) (CMS-HCC) [I21.3] Reviewing patient due to her recent transfer out from Intensive Care. Recorded vital signs are stable and the patient is not noted to be in any apparent distress. Telemetry and monitoring noted. Staff may call with any issues or concerns regarding her clinical presentation or stability. Thank you, José Rivera Jr, RN Rapid Response: [facility] * Kameron Brown RN - 05/11/2024 1:37 PM EDT Images from the original note were not included. FOLLOW-UP: Post-Intensive Care Rounding Note Patient: Alie Briones : 1960 Age: 63 y.o. Length of Stay: 4 days Admission Diagnosis: CHB (complete heart block) (CMS-HCC) [I44.2] Acute electrocardiogram changes [R94.31] ST elevation ND (STEMI) (CMS-HCC) [I21.3] Reviewing patient due to her recent transfer out from Intensive Care. Recorded vital signs are stable and the patient is not noted to be in any apparent distress. Telemetry and monitoring noted. Staff may call with any issues or concerns regarding her clinical presentation or stability. Thank you, Kameron Brown RN Rapid Response: [facility] * Raman Mcnally MD - 05/11/2024 8:13 AM EDT Images from the original note were not included. [facility]ADEMIC SERVICE PROGRESS NOTE Alie Briones SUBJECTIVE Subjective History of Present Illness: Alie Briones is a 63 y.o. female with a past medical history of hypertension, HLD, osteoarthritis of cervical spine, and cervical spondylosis without myelopathy, who presented to [facility] ED for a fall. Per the patient she had crushing chest pain this morning which she rates an 8/10. She said after the pressure she started getting light headed, dizzy, and fell but never lost consciousness. The patient reports having the chest pain for several days. In the [facility] ED the patient was afebrile, HR 80, RR 18, and BP 103/55. No labs were drawn. EKG showed concerns for heart block and left and right bundle branch blocks. CT brain and CT cervical spine showed no acute intracranial findings. CXR and hip xray showed no acute findings. Cardiology was consulted and patient was transferred to [facility]. Once the patient arrived at [facility] repeat EKG showed anterior lead ST segment elevations. Patient keptcycling back and forth between heart block and sinus tachycardia. On echo, patient was having apical wall motion abnormalities. Patient was urgently taken to field laboratory operator. Interval Hx: 05/11/24: patient is seen and [...] 7 days Lab Units 05/11/24 0557 05/10/24 03005/09/24 0300 WBC X10E9/L 8.5 6.9 7.1 HEMOGLOBIN [...] 7 days Lab Units 05/11/24 0557 05/10/24 03005/09/24 0300 MAGNESIUM mg/dL 1.8 1.8 1.9 D [...] Procedure: This EEG was acquired with electrodes placedaccording to the [id number] electrode placement system. The EEG was acquired and reviewed using multiple, reformattable montages. A single EKG channel was recorded for cardiac rhythm monitoring. Technical description: This EEG is recorded during sleep. No wakefulness was recorded. Background is composed of 5-10 V diffuse beta frequency intermixed with 20-30 V delta frequency. The re is noalpha frequency or posterior dominant rhythm. No epileptiform [...] of intermittent seizures. Kat Marquez M.D., Ph.D. Rn Lactation Consultant PA Neurology PHYSICAL EXAM Admission Weight: Weight: 47.1 kg (103 lb 13.4 oz) I/O last 3 completed shifts: In: - Out: 1800 [Urine:1800] Weight change: -0.1 kg (-3.5 oz) Wt Readings from Last 3 Encounters: 05/11/24 47.7 kg (105 lb 2.6 oz) 06/30/22 55.7 kg (122 lb 14.4 oz) 06/09/22 54.4 kg (120 lb) Vitals: Vitals: 05/10/24 2009 05/10/24 2314 05/11/24 0456 05/11/24 0812 BP: 120/79 [...] MD Internal Medicine, PGY-1 05/11/2024 8:13 AM [facility] TEACHING SERVICE This note was completed using a voice spanish translator system. Every effort was made to ensure accuracy. However, inadvertent computerized spanish translator errors may be present. Cosigned by Karlo [...] Ht 152.4 cm (5') Wt 47.7 kg (105lb 2.6 oz) SpO2 95% BMI 20.54 kg/m [...] This note was completed using a voice spanish translator system. Every effort was made to ensure accuracy. However, inadvertent computerized spanish translator errors may be present. * Brandt Quezada, CHIEF BANK EXAMINER-SUPERVISOR METAL CANS - 05/11/2024 7:15 AM EDT Images from the original note were not included. Nephrology Daily Progress Note Assessment Hypovolemic hyponatremia: Received IV LR now discontinued. Now continues on fluid restriction 1.5 L Hypotension: Resolved. Complete heart block status post temporary pacing wire placement ST-elevation ND status post stenting to the LAD on [...] heart block and hypotension. Uric acid was 3.7,TSH 1.49 and free T4 was 1.07, cortisol was 15.2, serum osmolality was 256, random urine sodium wasless than 10 and random urine osmolality was 353 Complete heart block status post temporary pacing wire placement on May 07, 2024 ST-elevation ND from April of 2024 status post cardiac [...] to mid LAD which was successfully stented, 40%mid to distal left circumflex, 85% 2nd obtuse [...] Signs and Physical Exam Vitals: 05/10/24 1800 03/200805/10/244 05/11/24 0456 BP: 127/82 120/79 131/88 126/83 [...] 7 days Lab Units 05/11/24 0557 05/10/24 03005/09/24 0300 WBC X10E9/L 8.5 6.9 7.1 HEMOGLOBIN g/dL 11.0* 10.1* 10.1* HEMATOCRIT % 31.3* 28.1* 28.6* PLATELETS X10E9/L 250 170 138* No results found for: PTH , CAION , PHOS Lab Results Component Value Date IRON 30 (L) 04/06/2024 TIBC 358 04/06/2024 FERRITIN 17 04/06/2024 Brandt Quezada SUPERVISOR METAL CANS [facility] Thank you for your consultation and allowing us to participate in the care of Aliemaura Barksdale and please do not hesitate to call us with any questions at: Office: [phone] Office Answering Service: [phone] This note was created with the assistance of a speech-recognition program. Although the intention is to generate a document that actually reflects the content of the visit, no guarantees can be provided that every mistake has been identified and corrected by editing. MARCIAL Croft 05/11/24 0718 * Alfa Gregory MD - 05/10/2024 1:59 PM EDT Images from the original note [...] from last 7 days Lab Units 05/10/2430205/09/2429905/08/24 0505/07/24204905/07/24 1609 BEDSIDE GLUCOSE mg/dL -- -- -- [...] heart block and hypotension. Uric acid was 3.7,TSH 1.49 and free T4 was 1.07, cortisol was 15.2, serum osmolality was 256, random urine sodium wasless than 10 and random urine osmolality was 353 Complete heart block status post temporary pacing wire placement on May 07, 2024 ST-elevation ND from April of 2024 status post cardiac [...] to mid LAD which was successfully stented, 40%mid to distal left circumflex, 85% 2nd obtuse [...] post temporary pacing wire placement 4. ST-elevation ND status post stenting to the LAD on May 07 and subsequent stenting to the 2ndobtuse marginal on May 09. 5. Hypertension: Started on Toprol-XL and Diovan. PLAN: 1. Discontinue IV fluids 2. Fluid restriction for hyponatremia 3. Continue to follow electrolytes every 8 hours. No objection to transfer out of ICU from Nephrology perspective. Alfa Gregory M.D. For questions please call: Answering Service at [phone] Or Office at [phone] This note was created with the assistance of a speech-recognition program. Although the intention is to generate a document that actually reflects the content of the visit, no guarantees can be provided that every mistake has been identified and corrected by editing. * Berta Kang MD - 05/10/2024 7:06 AM EDT Images from the original note were not included. [facility] ACADEMIC SERVICE PROGRESS NOTE Alie Briones SUBJECTIVE Subjective History of Present Illness: Alie Briones is a 63 y.o. female with a past medical history of hypertension, HLD, osteoarthritis of cervical spine, and cervical spondylosis without myelopathy, who presented to [facility] ED for a fall. Per the patient she had crushing chest pain this morning which she rates an 8/10. She said after the pressure she started getting light headed, dizzy, and fell but never lost consciousness. The patient reports having the chest pain for several days. In the [facility] ED the patient was afebrile, HR 80, RR 18, and BP 103/55. No labs were drawn. EKG showed concerns for heart block and left and right bundle branch blocks. CT brain and CT cervical spine showed no acute intracranial findings. CXR and hip xray showed no acute findings. Cardiology was consulted and patient was transferred to [facility]. Once the patient arrived at [facility] repeat EKG showed anterior lead ST segment elevations. Patient keptcycling back and forth between heart block and sinus tachycardia. On echo, patient was having apical wall motion abnormalities. Patient was urgently taken to field laboratory operator. Interval Hx: 05/10/24: This morning the patient was not oriented x3. She was speaking in nonsensical phrases andkept saying there were people in the room [...] the second obtuse marginal with a 2.25 x15 mm drug-eluting stent with CESAR 3 flow. Previously placed drug-eluting stent in the left anterior descending artery is patent. Recommendations: Continue dual anti-platelet therapy with aspirin 81 mg daily and prasugrel 10 mg daily for 6-12 months followed by single anti-platelet therapy. Continue aggressive risk factor modification. Continue aggressive medical management. Recommend follow-up with primary captain/airline pilot outpatient. PHYSICAL EXAM Admission Weight: Weight: 47.1 [...] 136/84 Pulse: 85 96 91 85 Resp: 18 Temp: 36.7 C (98.1 F) TempSrc: [...] MD Internal Medicine, PGY-1 05/10/2024 11:27 AM [facility] TEACHING SERVICE This note was completed using a voice spanish translator system. Every effort was made to ensure accuracy. However, inadvertent computerized spanish translator errors may be present. Cosigned by Karlo Infante MD at 05/10/2024 11:55 AM EDT Associated attestation - Karlo Infante MD - 05/10/2024 11:55 AM EDT Images from the original note were not included. [facility] I have personally performed a [...] This note was completed using a voice spanish translator system. Every effort was made to ensure accuracy. However, inadvertent computerized spanish translator errors may be present. * Alfa Gregory MD - 05/09/2024 1:15 PM EDT Images from the original note [...] 05/07/24 2050 SODIUM mmol/L 131* 129* 130* 129* 127* [...] heart block and hypotension. Uric acid was 3.7,TSH 1.49 and free T4 was 1.07, cortisol was 15.2, serum osmolality was 256, random urine sodium wasless than 10 and random urine osmolality was 353 Complete heart block status post temporary pacing wire placement on May 07, 2024 ST-elevation ND from April of 2024 status post cardiac catheterization with stenting to the LAD on May 07, 2024 Cardiac catheterization on May 07, 2024 revealed severe diffuse disease of the LAD with moderate calcification and 100% stenosis of the proximal LAD to mid LAD which was successfully stented, 40%mid to distal left circumflex, 85% 2nd obtuse [...] post temporary pacing wire placement 4. ST-elevation ND status post stenting to the LAD. Noted plans for repeat stenting tomorrow. PLAN: 1. Discontinue Aldactone given hypotension 2. Continue IV fluids 3. Continue to follow electrolytes and replace per sliding scale as needed No objection to proceed with cardiac catheterization from renal perspective. Discussed with her nurse at the bedside Alfa Gregory M.D. For questions please call: Answering Service at [phone] Or Office at [phone] This note was created with the assistance of a speech-recognition program. Although the intention is to generate a document that actually reflects the content of the visit, no guarantees can be provided that every mistake has been identified and corrected by editing. * Saran Samayoa - 05/09/2024 11:05 AM EDT Cardiac Rehab Type of Visit: Deferred (see comments) (Plans for cardiac cath procedure today. I will follow up with pt.) Assessment Vitals: 05/09/24 0900 05/09/24 1000 05/09/24 1100 Pulse: 75 76 71 Heart Rate Source: Resp: 15 13 BP: 102/66 (!) 80/46 BP Location: BP Method: SpO2: 98% 96% 97% O2 Device: * Berta Kang MD - 05/09/2024 7:20 AM EDT Images from the original note were not included. [facility] C[facility] ACADEMIC SERVICE PROGRESS NOTE Alie Briones SUBJECTIVE Subjective History of Present Illness: Alie Briones is a 63 y.o. female with a past medical history of hypertension, HLD, osteoarthritis of cervical spine, and cervical spondylosis without myelopathy, who presented to [facility] ED for a fall. Per the patient she had crushing chest pain this morning which she rates an 8/10. She said after the pressure she started getting light headed, dizzy, and fell but never lost consciousness. The patient reports having the chest pain for several days. In the [facility] ED the patient was afebrile, HR 80, RR 18, and BP 103/55. No labs were drawn. EKG showed concerns for heart block and left and right bundle branch blocks. CT brain and CT cervical spine showed no acute intracranial findings. CXR and hip xray showed no acute findings. Cardiology was consulted and patient was transferred to [facility]. Once the patient arrived at [facility] repeat EKG showed anterior lead ST segment elevations. Patient keptcycling back and forth between heart block and sinus tachycardia. On echo, patient was having apical wall motion abnormalities. Patient was urgently taken to field laboratory operator. Interval Hx: 05/09/24: No acute overnight events. This morning the patient was out if it again. She did not wantto wake to answer questions. During rounds she [...] 75 mL/hr, Last Rate: 75 mL/hr (05/08/24 9966) OBJECTIVE Objective CBC: Results from last 7 [...] Ht 152.4 cm (5') Wt 45.1 kg (99lb 6.8 oz) SpO2 92% BMI 19.42 kg/m [...] MD Internal Medicine, PGY-1 05/09/2024 7:20 AM [facility]ACHING SERVICE This note was completed using a voice spanish translator system. Every effort was made to ensure accuracy. However, inadvertent computerized spanish translator errors may be present. Cosigned by Karlo [...] Ht 152.4 cm (5') Wt 45.1 kg (99lb 6.8 oz) SpO2 97% BMI 19.42 kg/m [...] in the setting of anterior STEMI, residual [id number] Complete heart block in the setting of [...] This note was completed using a voice spanish translator system. Every effort was made to ensure accuracy. However, inadvertent computerized spanish translator errors may be present. * Gurinder Espinal MD - 05/09/2024 7:06 AM EDT Images from the original note were not included. [facility] - Electrophysiology [address], [place] [address] PROGRESS NOTE H&P 63F w/ PMH HTN [...] Ht 152.4 cm (5') Wt 45.1 kg (99lb 6.8 oz) SpO2 92% BMI 19.42 kg/m [...] 75 mL/hr, Last Rate: 75 mL/hr (05/08/24 7067) ASSESSMENT AND PLAN Anterior STEMI s/p PCI [...] Can restart if warranted, deferring to CCU teamfor GDMT. Plans for staged PCI prior to discharge, would advocate for repeat TTE after staged PCI to determine EF; if 35% or less, would discharge w/ LifeVest. Can be seen w/ EP for primary prevention ICD/CITY DISTRIBUTION CLERK if EF remains <35% after 3 months of GDMT. Would also discharge w/ outpatient 30d MCOT to evaluate for any further episodes of high- degree heart block. EP will sign off, please call back w/ any additional questions. Gurinder Espinal MD/PO, FACC, FHRS [facility] - Electrophysiology * Saran Samayoa - 05/08/2024 12:50 PM EDT Cardiac Rehab Type of Visit: Deferred (see comments) (Pt has been slightly confused today. Pt will also have a cath procedure done tomorrow. I will follow up with pt.) Assessment Vitals: 05/08/24 1130 05/08/24 1200 05/08/24 1300 Pulse: 98 86 86 Heart Rate Source: Resp: 16 17 15 BP: BP Location: BP Method: SpO2: 98% 95% 93% O2 Device: None (Room air) * Gurinder Espinal MD - 05/08/2024 8:46 AM EDT Images from the original note were not included. [facility] - Electrophysiology [address], [place] [address] PROGRESS NOTE H&P 63F w/ PMH HTN [...] days Lab Units 05/08/24 0520 05/07/24 2050 05/07/24 0003 SODIUM mmol/L 128* 123* 126* [...] 0520 05/07/24 2050 MAGNESIUM mg/dL 1.8 1.8 CURRENT MEDICATIONS aspirin, [...] capture and no sensing. Removed at bedside, sheathleft in place. Patient has no acute need [...] to eval for any recurrent heart block. Gurinder Espinal MD/PO, FACC, FHRS [facility] - Electrophysiology * Berta Kang MD - 05/08/2024 7:25 AM EDT Images from the original note were not included. [facility] C[facility] ACADEMIC SERVICE PROGRESS NOTE Alie Jamesontle SUBJECTIVE Subjective History of Present Illness: Alie Briones is a 63 y.o. female with a past medical history of hypertension, HLD, osteoarthritis of cervical spine, and cervical spondylosis without myelopathy, who presented to [facility] ED for a fall. Per the patient she had crushing chest pain this morning which she rates an 8/10. She said after the pressure she started getting light headed, dizzy, and fell but never lost consciousness. The patient reports having the chest pain for several days. In the [facility] ED the patient was afebrile, HR 80, RR 18, and BP 103/55. No labs were drawn. EKG showed concerns for heart block and left and right bundle branch blocks. CT brain and CT cervical spine showed no acute intracranial findings. CXR and hip xray showed no acute findings. Cardiology was consulted and patient was transferred to [facility]. Once the patient arrived at [facility] repeat EKG showed anterior lead ST segment elevations. Patient keptcycling back and forth between heart block and sinus tachycardia. On echo, patient was having apical wall motion abnormalities. Patient was urgently taken to field laboratory operator. Interval Hx: 05/08/24: No acute overnight events. [...] days Lab Units 05/08/24 1158 05/08/24 0520 05/07/240 SODIUM mmol/L 127* 128* 123* POTASSIUM mmol/L [...] regurgitation or stenosis. Mitral Valve: There is [id number] regurgitation. There is no evidence of mitral valve stenosis. Tr icuspid Valve: There is trace regurgitation. There is no evidence of tricuspid valve stenosis. Cardiac Invasive Result Date: 05/08/2024 Successful placement of temporary pacing wire for the indication of complete heart block Severe multivessel coronary artery disease Successful placement of 1 drug-eluting stent to proximal to mid LADwith intravascular ultrasound assistance showing well apposed and [...] acute infarct identified There is no midline shift.IMPRESSION: * No acute intracranial findings. Consider brain MRI if you suspect occult process. AllCT scans at this facility use dose modulation, [...] 15 Ht 152.4 cm (5') Wt 45.6 kg(100 lb 8.5 oz) SpO2 93% BMI 19.63 [...] Patient will need to go back to field laboratory operator for intervention of obtuse marginal tomorrow NPO [...] MD Internal Medicine, PGY-1 05/08/2024 1:58 PM [facility] CARDIOLOG[facility] TEACHING SERVICE This note was completed using a voice spanish translator system. Every effort was made to ensure accuracy. However, inadvertent computerized spanish translator errors may be present. Cosigned by Karlo [...] 16 Ht 152.4 cm (5') Wt 45.6 kg(100 lb 8.5 oz) SpO2 92% BMI 19.63 [...] in the setting of anterior STEMI, residual [id number] Complete heart block in the setting of [...] This note was completed using a voice spanish translator system. Every effort was made to ensure accuracy. However, inadvertent computerized spanish translator errors may be present. documented in this encounterWhite River Junction Va Medical CenterGeev.Me Tech03-29-2025 History and physical note* Ivette Galicia MD - 05/11/2024 10:00 AM EDT Images from the original note were not included. [facility] INTERNAL MEDICINE [facility] 6W ACUTE [address] [facility] [id number] Hospital Medicine History & Physical Patient: Alie Briones Date of : 1960 Room: [place] [address] PCP: [facility] Admission date: 05/07/2024 3:54 PM Encounter date: 05/11/24 Hospital Day: 5 SUBJECTIVE Alie Briones is a 63 y.o. female with past medical history significant for hypertension and hyperlipidemia. Patient initially presented to [facility] on 05/07/2024 for evaluation after a fall with associated crushing chest pains. In the ER, EKG showed concerns for complete heart block for which Cardiology was consulted and patient was transferred to [facility] for further management under their service. On arrival to [facility] a repeat EKG revealed anterior lead ST segment elevations. 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 Patient s/p GARETT to [...] 6 HOURS NEEDED FOR PAIN 10/30/22 Yes MARCIAL Nicholson amLODIPine (NORVASC) 2.5 mg tablet Take 1 [...] 2 (two) times a day as needed (coldsores). Patient not taking: Reported on 05/08/2024 Not In System Ref Prov Past Medical History: Patient has a past medical history of Asthma, Asthma, Back pain, Cervical disc disorder, CHB (complete heart block) ([facility]) (05/07/2024), HTN (hypertension), scabies, Low back [...] (N/A, 05/07/2024); Invasive Cardiology Procedure (N/A, 05/07/2024); Inv asive Cardiology Procedure (N/A, 05/07/2024); Coronary stent placement [...] Ht 152.4 cm (5') Wt 47.7 kg (105lb 2.6 oz) SpO2 95% BMI 20.54 kg/m [...] acquired with electrodes placed according to the [id number] electrode placement system. The EEG was acquired andreviewed using multiple, reformattable montages. A single EKG channel was recorded for cardiac rhythm monitoring. Technical description: This EEG is recorded during sleep. No wakefulness was recorded. Background is composed of 5-10 V diffuse beta frequency intermixed with 20-30 V delta frequency. The re is no alpha frequency or posterior dominant rhythm. No epileptiform abnormalities are noted inthe form of spikes or sharp waves. No [...] of intermittent seizures. Kat Marquez M.D., Ph.D. Rn Lactation Consultant PA Neurology Cardiac Invasive Result Date: 05/10/2024 Narrative: [...] aggressive medical management. Recommend follow-up with primary captain/airline pilot outpatient. Echo limited W/O contrast Result Date: 05/08/2024 Narrative: Left Ventricle: Left ventricle appears normal in size. Systolic function is moderately to severely decreased with an ejection fraction of 30- 35%. Aortic Valve: There is no regurgitation orstenosis. Mitral Valve: There is hbllq-yj-zhad regurgitation. There is no evidence of mitral valve stenosis. Tricuspid Valve: There is trace regurgitation. There is no evidence of tricuspid valve stenosis. Cardiac Invasive Result Date: 05/08/2024 Narrative: Successful placement of temporary pacing wire for the indication of complete heart blockSevere multivessel coronary artery disease Successful placement of 1 drug-eluting stent to proximalto mid LAD with intravascular ultrasound assistance showing [...] fracture or dislocation. There is slight anterolisthesis C3- C4. The spinal canal is patent. No prevertebral [...] LIST Principal Problem: CHB (complete heart block) ([facility]) Active Problems: HTN (hypertension) ST elevation myocardial infarction (STEMI) ([facility]) Coronary artery disease involving [place] coronary artery of [place] heart Mixed hyperlipidemia ASSESSMENT & PLAN Complete heart block in setting of STEMI with recurrent syncope, resolved, now with LAFB/RBBB Electrophysiology signed off, no plans for pacemaker at this time. Recommended discharging with outpatient 30 day MCOT to evaluate for any further episodes of high-degree heart block. Can follow-up with EP for primary prevention ICD/CITY DISTRIBUTION CLERK if EF remains less than 30% after [...] abuse Neurology following EEG has been normal. WA protocol. On IV thiamine. Neurology also recommended outpatient MRI of cervical and lumbar spines for further evaluation of ruling out possible myeloradiculopathy contributing to patient's initial fall. Admission orders placed and home medications reconciled PT/OT to evaluate and treat DVT Prophylaxis: EPC's and Heparin Subcut DC planning: pending clinical course, from home, PT recommending SNF MARCIAL CUELLAR 05/11/2024 12:49 PM [facility] Internal Medicine 7AM-7PM & 7PM-7AM: EpicChat or page through On-Call Finder. MARCIAL Cuellar 05/11/24 [id number] I have seen and evaluated the patient, and have reviewed the history above and agree. I have repeated the carrington portions of the physical exam and concur with the LOBITO findings. I have reviewed all laboratory findings and imaging reports/films. I agree with the plan as noted above Dr Ievtte Galicia MD, MRCP 05/11/2024 6:34 PM * Brooke Doss MD - 05/09/2024 3:28 PM EDT H&P was reviewed. There are no significant changes to the H&P. The procedure was explained to the patient in detail. Risks, benefits, and alternative options of the procedure were explained to the patient. Proceduralrisks include but are not limited to a [...] the original note were not included. [facility] CARDIOLOGY ACADEMIC SERVICE PROGRESS NOTE Alie Briones SUBJECTIVE Subjective History of Present Illness: Alie Briones is a 63 y.o. female with a past medical history of hypertension, HLD, osteoarthritis of cervical spine, and cervical spondylosis without myelopathy, who presented to [facility] for a fall. Per the patient she had crushing chest pain this morning which she rates an 8/10. She said after the pressure she started getting light headed, dizzy, and fell but never lost consciousness. The patient reports having the chest pain for several days. In the [facility] ED the patient was afebrile, HR 80, RR 18, and BP 103/55. No labs were drawn. EKG showed concerns for heart block and left and right bundle branch blocks. CT brain and CT cervical spine showed no acute intracranial findings. CXR and hip xray showed no acute findings. Cardiology was consulted and patient was transferred to [facility]. Once the patient arrived at [facility] repeat EKG showed anterior lead ST segment elevations. Patient keptcycling back and forth between heart block and sinus tachycardia. On echo, patient was having apical wall motion abnormalities. Patient was urgently taken to field laboratory operator. Interval Hx: 05/09/24: No acute overnight events. This morning the patient was out if it again. She did not wantto wake to answer questions. During rounds she [...] 75 mL/hr, Last Rate: 75 mL/hr (05/08/24 6762) OBJECTIVE Objective CBC: Results from last 7 [...] Ht 152.4 cm (5') Wt 45.1 kg (99lb 6.8 oz) SpO2 92% BMI 19.42 kg/m [...] MD Internal Medicine, PGY-1 05/09/2024 7:20 AM [facility] CARDIOLOG[facility] TEACHING SERVICE This note was completed using a voice spanish translator system. Every effort was made to ensure accuracy. However, inadvertent computerized spanish translator errors may be present. Cosigned by Karlo Infante MD at 05/09/2024 1:02 PM EDT documented in this encounterOhioHealth Grady Memorial Hospital03-28-2025 Consult note* Caio White MD - 05/10/2024 9:46 AM EDTAssociated Order(s): IP CONSULT TO NEUROLOGY Images from the original note were not included. [facility] Neurology General Neurology Consult Note Primary Neurology service: [phone] Chief Complaint: Hallucinations, memory loss and falls [...] use disorder with krotom who presented to [facility] after a fall. At the time patient stated she has crushing chest pain which she rated 8/10. She became lightheaded, dizzy and fell but never lost consciousness. Patient reported having chest pain for several days. Cardiology were consulted and she was transferred to [facility]. EKG in [facility] revealed anterior lead ST segment elevation. She also had complete heart block. He was urgently taken to field laboratory operator for PCI on 05/07 and 05/09. On [...] 2023 and the month she stated was September.She was able to get her day correct. Bilateral pupils were equal and reactive to light. Reflexes were 2/4 in bilateral upper and lower extremities. Motor strength was 4/5 in bilateral upper andlower extremities. There were no tremors or any [...] Cervical disc disorder CHB (complete heart block) ([facility]) 05/07/2024 Hx of scabies Low back pain [...] however not to time and situation.. No aphasia.No dysarthria. Not able to provide good history [...] blinds during the day time, and minimize sleepinterruption at night. Keep the room quiet and restful. If patient wears prescription glasses, wearglasses when applicable. It may help to play [...] to Monday 12-1:00 p.m. Primary Neurology service: [phone] Consult neurology service: [phone] Resident Stroke Service: [phone] If the patient belongs to the Stroke [...] for: EAG Lab Results Component Value Date [id number] 04/06/2024 Neurological work up: CT head [...] meaning can be extrapolated by contextual derivation. * Alfa Gregory MD - 05/08/2024 9:34 AM EDTAssociated Order(s): Consult Nephrology Images from the original note were not included. Consult Nephrology Consult performed by: Alfa Gregory MD Consult ordered by: Leobardo Greene PA-C NEPHROLOGY CONSULT NOTE Date of Admission: 05/07/2024 3:54 PM Reason for Consult: Hyponatremia Referring Provider: Leobardo Greene PA-C PCP: [facility] Chief Complaint: Recurrent falls with suspected syncope in the setting of complete heart block Parts of this history physical exam might not be comprehensive. The patient is currently unresponsive encephalopathic starts post Ativan overnight. Parts of this history physical exam was obtained byreview of electronic medical record as well as her daughter the bedside. History of Present Illness: Alie Briones is a 63 y.o. female who [facility] chief [facility]. The patient presented to [facility] room with the above chief complaint. He was found to be bradycardic with a heart rate of 40. EKG revealed complete heart block. The patient was transferred to [facility] for further evaluation and management. The patient [...] intake of NSAIDs. Negative for family history ofchronic kidney disease or dialysis. Past Medical and Surgical History: Hypovolemic hyponatremia in the setting of complete heart block and hypotension. Uric acid was 3.7,TSH 1.49 and free T4 was 1.07, cortisol was 15.2, serum osmolality is pending, urine sodium and urine osmolality are pending. Complete heart block status post temporary pacing wire placement on May 07, 2024 ST-elevation ND from April of 2024 status post cardiac catheterization with stenting to the LAD on May 07, 2024 Cardiac catheterization on May 07, 2024 revealed severe diffuse disease of the LAD with moderate calcification and 100% stenosis of the proximal LAD to mid LAD which was successfully stented, 40%mid to distal left circumflex, 85% 2nd obtuse [...] Status post transvenous pacemaker. 3. Anterior ST-elevation ND status post cardiac catheterization with stenting to [...] to participate in the care of Alie Barksdale and please do not hesitate to call us with any questions at: Office: [phone] Office Answering Service: [phone] Alfa Gregory M.D. This note was created with the assistance of a speech-recognition program. Although the intention is to generate a document that actually reflects the content of the visit, no guarantees can be provided that every mistake has been identified and corrected by editing. * Gurinder Espinal MD - 05/07/2024 3:08 PM EDT Images from the original note were not included. [facility] Cardiology - Electrophysiology [address] [place] [address] CONSULTATION PATIENT NAME: Alie Briones : 1960 AGE: 63 y.o. Date of Admission: (Not on file) Date of Consultation: 05/07/2024 Primary Industrial Sales Manager: none SUBJECTIVE REASON FOR CONSULT: complete heart block HISTORY OF PRESENT ILLNESS: 63F w/ PMH HTN, chronic pain who [facility] ER [facility]. Reported to have memory issues as well as chronic neck pain. EMS EKG demonstrated complete heart block with left bundle escape, heart rate 40 beats per minute. EKG 05/07/24 1:50 p.m. shows complete heart block as well with wide junctional escape and a left bundle pattern at 39 beatsper minute. Subsequent EKG 05/07/2024 to 3:00 p.m. shows sinus rhythm with left anterior fascicular block and right bundle-branch block, QRS 169 milliseconds, SC interval 122 milliseconds. No lab work was [...] with the patient, she states that she hashad syncopal or presyncopal spells over the past [...] ordered, this demonstrated septal and apical akinesis con sistent with STEMI in the LAD distribution. I [...] (Left); section (1980,,, ); orthopedic surgery; Tonsillectomy (1970); Injection Nerve Block (Left, 02/12/2018); Injection Nerve Block (Left, 03/16/2018); Radiofrequency ablation (Left, 04/30/2018); Injection Nerve Block (Right, 07/23/2018); Injection Nerve Block (Right, 09/14/2018); Radiofrequency ablation(Right, 11/15/2019); Radiofrequency ablation (Left, 07/08/2022); and Radiofrequency [...] by mouth in the morning. 09/25/18 Not InSystem Ref Prov baclofen (LIORESAL) 10 mg tablet Take 1 tablet (10 mg total) by mouth 3 (three) times a day. Not InSystem Ref Prov busPIRone (BUSPAR) 10 mg tablet [...] TABLET BY MOUTH EVERY DAY 08/30/21 Igor Hloliday MD ALLERGIES Sulfa (sulfonamide antibiotics) REVIEW OF [...] Given anterior STEMI, patient was sent to field laboratory operator for intervention. Recommend placement of temporary pacing wire for support at time of catheterization. EP will follow closely, keep NPO after midnight for potential pacemaker placement tomorrow if she has not regained AV conduction. Gurinder Espinal MD/PO, FAC, [facility] Cardiac Electrophysiology This note was completed using a voice spanish translator system. Every effort was made to ensure accuracy. However, inadvertent computerized spanish translator errors may be present. documented in this encounterOhioHealth Grady Memorial Hospital03-26-2025 Miscellaneous Notes* Telephone Encounter - Perla Lao - 05/08/2024 9:43 AM EDT From the 05/07/2024 procedure list: per BD. Patient is currently admitted at [facility] s/p CATH/PCI. Follow-up in the office in 7-10 days post discharge. * Telephone Encounter - Gretchen Ferreira - 05/08/2024 9:43 AM EDT PT STILL ADMITTED * Telephone Encounter - Arian Corado - 05/08/2024 9:43 AM EDT Still inpt * Telephone Encounter - Perla Lao - 05/08/2024 9:43 AM EDT PCI of OM today 05/09/2024 with BD. * Telephone Encounter - Argenis Khan - 05/08/2024 9:43 AM EDT Currently admitted * Telephone Encounter - Juana Eden CMA - 05/08/2024 9:43 AM EDT Pt still currently admitted. * Telephone Encounter - Gretchen Ferreira - 05/08/2024 9:43 AM EDT PT STILL ADMITTED * Telephone Encounter - Juana Eden CMA - 05/08/2024 9:43 AM EDT PT STILL CURRENTLY ADMITTED * Telephone Encounter - Juana Eden CMA - 05/08/2024 9:43 AM EDT Pt still currently admitted * Telephone Encounter - Arlin Rodriguez CMA - 05/08/2024 9:43 AM EDT Pt still admitted 05/17/24 * Telephone Encounter - Juana Ramos MA - 05/08/2024 9:43 AM EDT Called pt to schedule f/u appt, pt currently inpatient rehab, pt will have daughter call to schedule f/u appt. JLW documented in this encounterOhioHealth Grady [facility] Hospital03-26-2025 Telephone encounter Note* Telephone Encounter - Perla Lao - 05/08/2024 9:43 AM EDT From the 05/07/2024 procedure list: per BD. Patient is currently admitted at [facility] s/p CATH/PCI. Follow-up in the office in 7-10 days post discharge. [facility]03-26-[facility] Telephone encounter Note* Telephone Encounter - Gretchen Ferreira - 05/08/2024 9:43 AM EDT PT STILL ADMITTED [facility]03-26-[facility] Telephone encounter Note* Telephone Encounter - Arian Corado - 05/08/2024 9:43 AM EDT Still inpt [facility]03-26-2025 Telephone encounter Note* Telephone Encounter - Perla Lao - 05/08/2024 9:43 AM EDT PCI of OM today 05/09/2024 with BD. [facility]03-26-2025 Telephone encounter Note* Telephone Encounter - Argenis Khan - 05/08/2024 9:43 AM EDT Currently admitted [facility]03-26-20[facility] Telephone encounter Note* Telephone Encounter - Juana Eden CMA - 05/08/2024 9:43 AM EDT Pt still currently admitted. [facility]03-26-2025 Telephone encounter Note* Telephone Encounter - Gretchen Ferreira - 05/08/2024 9:43 AM EDT PT STILL ADMITTED [facility]03-26-[facility] Telephone encounter Note* Telephone Encounter - Juana Eden CMA - 05/08/2024 9:43 AM EDT PT STILL CURRENTLY ADMITTED [facility]03-26-[facility] Telephone encounter Note* Telephone Encounter - Juana Eden CMA - 05/08/2024 9:43 AM EDT Pt still currently admitted [facility]03-26-[facility] Telephone encounter Note* Telephone Encounter - Arlin Rodriguez CMA - 05/08/2024 9:43 AM EDT Pt still admitted 05/17/24 [facility]03-26-[facility] Telephone encounter Note* Telephone Encounter - Juana Ramos MA - 05/08/2024 9:43 AM EDT Called pt to schedule f/u appt, pt currently inpatient rehab, pt will have daughter call to schedule f/u appt. JLW [facility]03-25-2025 Miscellaneous Notes* Telephone Encounter - Shaniqua Montoya - 05/07/2024 8:13 PM EDT Contract: [place] @ [facility] is calling regarding order clarification * Telephone Encounter - Shaniqua Montoya - 05/07/2024 8:13 PM EDT Deep Submergence Vehicle Crewmember sent a secure chat to DIEGO Greene back to facility documented in this encounterOhioHealth Grady [facility]03-25-2025 Telephone encounter Note* Telephone Encounter - Shaniqua Montoya - 05/07/2024 8:13 PM EDT Contract: [place] @ [facility] is calling regarding order clarification [facility]03-25-2025 Telephone encounter Note* Telephone Encounter - Shaniqua Montoya - 05/07/2024 8:13 PM EDT Deep Submergence Vehicle Crewmember sent a secure chat to DIEGO Greene back to facility [facility]02-26-2025 Miscellaneous Notes* Telephone Encounter - Khadar Rose - 04/10/2024 1:29 PM EST Daughter, Tonny, called to schedule appt. Patient has [employer] [place]. Deep Submergence Vehicle Crewmember advised not accepted through [email or web address] and will be responsible for all charges. Scheduling was declined. documented in this encounterSt. Anthony's HospitalGumiyo02-26-2025 Telephone encounter Note* Telephone Encounter - Shonda Rose - 04/10/2024 1:29 PM EST Daughter, Tonny, called to schedule appt. Patient has [employer] [place]. Deep Submergence Vehicle Crewmember advised not accepted through [email or web address] and will be responsible for all charges. Scheduling was declined. [facility])05-29-2022 Progress note Author Harriet Barber [facility] July 11, 2021 1:45pmNote Date/TimeMay 2021 12:02pmTodd [place] [id number] Hospitalist Progress Note Signed Patient: Alie Lowe MR#: [id number] : 1960 Acct:[id number] Age/Sex: 60 / F Adm Date: 2 Loc: Room: [address] [place] [address] Type : ADM IN Attending Dr: Sandra [...] her PCP and discuss discontinuation of acyclovir, als oinstructed her not to use Epsom salts further. She is happy with the progress this is made. I did world travel counselor her on the importance of hot [...] Q6H PRN Dystonia Benztropine Mesylate 0.5 mg 05/24/22 15:57 Benztropine 2 Mg/2 Ml Ampul IM [...] By: <Electronically signed by ZAFAR Barber> 07/11/[address] [place] [address] Work Phone: 1(709) 115-682105-29-2022 Discharge summary Author Joni freeman [facility] July 11, 2021 9:10amNote Date/TimeMay 2021 9:04[place] [id number] Discharge Summary Signed Patient: Alie Lowe MR#: [id number] : 1960 Acct:[id number] Age/Sex: 60 / F Adm Date: 2 Loc: 1S Room: [address] [place] [address]: Sandra Branch MD Copies to: [...] who was transferred from the ED in [place] for possible visualhallucinations last night. She reports being at a [...] not seem to want? leave. She told herlandlord who called the police. Patient stated that someone has been stealing her wi-fi password and believes people are plotting against her.? She admits to high anxiety and poor sleep recently. Pertinent stressors include her adult son to a congenital heart condition about 3 months ago and reports worsening of her mood with decreased energy, decreased sleep, trouble concentrating as well aspoor appetite. She denies any suicidal ideation. She [...] it is Monday. She knows it is [facility] but took more than3 minutes to answer what is the name [...] goal-directed. CT sca was done showing?the ventricles, sulci,and cisterns are normal in size and configuration. [...] limiting the number of medications to a 14- day supply with one refill at the time [...] impulsivity, agitation, or psychotic behavior. Pt is future-oriented and understands the importance of outpatient follow-up. [...] follow-up to have somewhere to go and someoneto manage her assymptoms and stressors develop. This is the best way to keep her alive. So, we discussed a crisis plan for future suicidality: at the first sign of distress, she will call the hotline; if this is not sufficient, she will 911, then call family members or friends; ultimately, she willcome to the ER. Safety: The patient is [...] is goal directed. The content shows no evidenceof psychotic or suicidal content. Insight and judgement are fair. Cognitive testing - see below She is unable to recall 3 words after 5 minutes.? She is unable to tell me the month but identifiesthe year correctly.? She is able to spell [...] No activity restrictions. Instructions: Acute Psychosis (DC), [facility] [place] Instructions Prescriptions: New ergocalciferol [...] be filled in a timely manner. ) [facility] Hotline [Outside] Documented By: Joni Branch MD 2 0904 Signed By: <Electronically signed by Joni Branch MD> 07/11/21 0910 [facility] Work Phone: 1(296) 689-782505-28-2022 Progress note Author Joni freeman [facility] July 10, 2021 9:45amNote Date/TimeMay 2021 9:44[place] [address] Psychiatry Progress Note Signed Patient: Alie Lowe MR#: [id number] : 1960 Acct:[id number] Age/Sex: 60 / F Adm Date: 2 Loc: Room: [address] [place] [address] Type : ADM IN Attending Dr: Sandra [...] to neck and back pain. She admits tohaving forward finding difficulty and short-term memory problems consistent with alcohol induced neurocognitive disorder. She has been repeating questions and stories on exam. When asked about the date, she tells me its 25 April 2021. When asksed about day of the week she said it is Monday. She knows it is [facility] but took more than 3 minutes to answer what is the name of this place and the nature of it. She paused and was trying to remember then after multiple trials said it is a treatment center' On mental status examination, she presents as a casually woman, cooperative, good eye contact, withapparent trouble expressing herself when addressed and asked to respond. She is alert and oriented x 2. Speech is spontaneous. The moodis ``ok.?? Affect is reactive and mood congruent. No psychomotorretardation oragitation. The thought process is impoverished. The [...] She is able to name objects such aspen and watch. She is not able to [...] vitamin D and vitamin B12 and is currentlyon replacement treatment. UA is WNL. She was [...] understanding. Documented By: Joni Branch MD 2 0939 Signed By: <Electronically signed by Joni Branch MD> 07/10/21 0945 [facility] Work Phone: 1(608) 221-999405-27-2022 Progress note Author Joni freeman [facility] July 09, 2021 9:23amNote Date/TimeMay 2021 9:15[place] [address] Psychiatry Progress Note Signed Patient: Alie Lowe MR#: [id number] : 1960 Acct:[id number] Age/Sex: 60 / F Adm Date: 2 Loc: Room: 4W5202-8 Type : ADM IN Attending Dr: Sandra [...] Pt was told that she did not havea procedure scheduled. When I asked her today [...] is noted. There are no findings to suggestan acute large vessel infarct. There is no acute intracranial hemorrhage. No intracranial mass or mass effect is identified. No abnormal extra-axial fluid collection is seen. The visualized paranasalsinuses and the mastoids appear unremarkable. Mental Status [...] her daily alcohol use. She does not endorsesymptoms of alcohol withdrawal now. Will dose Librium [...] understanding. Documented By: Joni Branch MD 2 96 Signed By: <Electronically signed by Joni Branch MD> 07/09/21922 [facility] Work Phone: 1(111) 602-411705-26-2022 Progress note Author Joni freeman [facility] July 08, 2021 9:55amNote Date/TimeMay 2021 9:[address] [address] Psychiatry Progress Note Signed Patient: Alie Lowe MR#: [id number] : 1960 Acct:[id number] Age/Sex: 60 / F Adm Date: 2 Loc: Room: [address] [place] [address] Type : ADM IN Attending Dr: Sandra Branch MD Copies to: ~ Date of Service: 07/08/2021 Subjective Subjective Narrative: Patient was started on Risperdal 0.5 qhs yesterday and tolerated the first dose well. She reports sleeping through the night and has noticed improvement in her mood. Patient was personally seen by me on the day of the encounter. I reviewed the history and performedthe carrington elements of the assessment. I formulated the planof care and confirmed this with the Medical student as noted below Patient reported feeling much better today. She still has intermittent paranoidthoughts. No auditory or visual hallucinations today. She has been attending group sessions and plans on attending thesetoday as well. She is on Librium 10 [...] <Electronically signed by Joni Branch MD> 07/08/21 0955 [facility] Work Phone: 1(544) 356-441005-25-2022 History and physical note Author Joni freeman [facility] July 07, 2021 9:58amNote Date/TimeMay 2021 9:53[place] [address] Psychiatry H&P Signed Patient: Alie Lowe MR#: [id number] : 1960 Acct:[id number] Age/Sex: 60 / F Adm Date: 2 Loc: Room: [address] [place] [address] Type : ADM IN Attending Dr: Sandra Branch MD Copies to: MD Igor King MD~ Date of Service: 07/07/2021 HPI History of Present Illness History of present illness: Ms. Lowe is a 60 year old female who was transferred from the ED in [place] for possible visualhallucinations last night. She reports being at a [...] the encounter. I reviewed the history and performedthe carrington elements of the assessment. I formulated [...] energy, decreased sleep, trouble concentrating as well aspoor appetite. She denies any suicidal ideation. She [...] <Electronically signed by Joni Branch MD> 07/07/21 0906 [facility] Work Phone: Evaluation note* Diagnosis Onset Date Resolution Status [id number] acutePsychosisacuteRashacuteScabiesacute [facility] Work Phone: Evaluation note* Diagnosis CHB (complete heart block) (CMS-HCC)- Primary Atrioventricular block, complete ST elevation myocardial infarction (STEMI), unspecified artery (CMS-HCC) CHB (complete heart block) (CMS-HCC) Atrioventricular block, complete Coronary artery disease involving [place] coronary artery of [place] heart, unspecified whether angina present Altered mental status, unspecified altered mental status type ST elevation myocardial infarction (STEMI) (CMS-HCC) Acute myocardial infarction, unspecified site, episode of care unspecified Coronary artery disease involving [place] coronary artery of [place] heart HTN (hypertension) Unspecified essential hypertension Mixed hyperlipidemia ST elevation myocardial infarction (STEMI), unspecified artery (CMS-HCC) Coronary artery disease involving [place] coronary artery of [place] heart, unspecified whether angina present documented in [...] HealthcareEvaluation note* Diagnosis Coronary artery disease involving [place] coronary artery of [place] heart without angina pectoris- Primary Hypertension, unspecified type Mixed hyperlipidemia Chronic systolic heart failure (CMS-HCC) Chronic systolic heart failure Complete heart block (CMS-HCC) Atrioventricular block, complete Continuous tobacco abuse documented in this encounter [facility] SystemEvaluation note* Diagnosis Chronic systolic heart failure ([facility]-HCC)- Primary Chronic systolic heart failure Ischemic cardiomyopathy Other specified forms of chronic ischemic heart disease Mixed hyperlipidemia documented in this encounter [facility] SystemEvaluation noteNo assessment information available [facility] Work Phone: Hospital Discharge instructions Additional Instructions Regular diet. No activity restrictions. Call Dr Holliday and update on improvement in scabies infection after Ivermectin- determine whether to continue Acyclovir No further epsom [facility] Work Phone: Hospital Discharge instructions* Attachments The following attachments cannot be sent through Care Everywhere. * Heart Block Discharge Instructions? Adult (Namibian) * Pacemaker Insertion Discharge Instructions (Namibian) * Heart Attack Discharge Instructions (Namibian) * Cardiac Catheterization Discharge Instructions (Namibian) * Coronary Stenting Discharge Instructions (Namibian) documented in this encounterAs[facility] SystemInstructionsNot on file documented in this encounterProUniversity [facility] SystemInstructionsNot on file documented in this encounterProShelby [facility] SystemInstructionsNot on file documented in this encounterProUniversity [facility]als [facility] SystemInstructionsNot on file documented in this encounterProShelby [facility] [employer] SystemInstructionsNot on file documented in this encounterProShelby [facility] Health SystemInstructionsNot on file documented in this encounterProShelby [facility] [employer] SystemInstructionsNot on file documented in this encounterAshtabula [facility] SystemInstructionsNot on file documented in this encounterAshtabula [facility] SystemReason for referral (narrative)No reason for referral information availableSt. [facility] Work Phone: Reason for visit Narrative* Auth/CertSpecialty Diagnoses / ProceduresReferred By ContactReferred To Contact Diagnoses [address] [address] Referral IDStatusReasonStart DateExpiration DateVisits RequestedVisits [id number] [facility] for visit Narrative* Neuropsych Testing (Routine) - ClosedSpecialtyDiagnoses / ProceduresReferred By ContactReferred To Contact Neuropsychology / Neurology Diagnoses Other amnesia Procedures SC NEUROPSYCHOLOGICAL TST EVAL PHYS/QHP EA ADDL HR Mere Monteiro MD [address] [place] [address] fax: Art Blue, PhD [address] [address] Phone: tel: fax: Referral IDStatusReluisStart DateExpiration DateVisits RequestedVisits [id number] Specialty Services Required / [facility] Chief Complaint and Reason for Visit Chief Complaint Unspecified Psychosi s Reason for Visit [id number] Psychosis Rash Scabies Chief Complaint Admit Date *UPDATE HIPAA*go over testing 05/20 12:59pm Advance Directives Date ActivatedDate InactivatedComments09/12/2024 10:28 PM09/18/2024 8:15 PMDate ActivatedDate InactivatedComments05/08/2024 7:31 AM05/18/2024 9:39 PMDate Activated Date InactivatedComments05/07/2024 4:02 PM05/07/2024 5:32 PM Advance Directive Response Recorded Date/ Time Advance Directives No July 06 3:05pm Date ActivatedDate InactivatedComments05/07/2024 4:02 PM05/07/2024 5:32 PMDate ActivatedDate InactivatedComments05/08/2024 7:31 AMDate ActivatedDate Inactivated Comments05/07/2024 4:02 PM05/07/2024 5:32 PMDate ActivatedDate InactivatedComments 05/08/2024 7:31 AM05/18/2024 9:39 PMDate ActivatedDate InactivatedComments05/07/2024 4:02 PM05/07/2024 5:32 PMDate ActivatedDate InactivatedComments05/08/2024 7:31 AM 05/18/2024 9:39 PMDate ActivatedDate InactivatedComments09/12/2024 10:28 PMDate ActivatedDate InactivatedComments09/12/2024 10:28 PM09/18/2024 8:15 PMDate ActivatedDate InactivatedComments05/08/2024 7:31 AM05/18/2024 9:39 PMDate Activated Date InactivatedComments05/07/2024 4:02 PM05/07/2024 5:32 PM Advance Directive Response Recorded Date/ Time Advance Directives No October 08, 2024 2:09pm Summary Purpose Family History No Family History Records FoundNo Family History Records FoundNo Family History Records FoundNo Family History Records FoundNo Family History Records FoundNo Family History Records Found Additional Source Comments Care Teams (unrecognized sec tion and content) Team Status: Active Member Role Status Dates Iogr Holliday MD Primary Care Provider Active Team Status: Inactive Member Role Status Dates Igor Holliday MD Primary Care Provider Active Start: November 12, 2024 End: November 12, 2024Nicjane Blue PhDAttending ProviderActiveStart: November 12, 2024 End: November 12, 2024 Team Status: Inactive Member Role Status Dates Sandra Branch MD Admit Provider, Attending Pr ovider Active [facility] ProviderActiveAlexandra Hawthorne RNOther ProviderActiveMyrna Robles RNOther ProviderActiveGale Tyler RNOther ProviderActiveMickathy Luong RNOther ProviderActiveDaphne Waters RNOther ProviderActiveMotimo Yancey RNOther ProviderActiveKallie Pinto RNOther ProviderActiveRageovanni Alvarado MDOther ProviderActiveAnairis Smith MDOther ProviderActiveLisa Vivek Castros , APRNOther ProviderActiveRonalysha Chavez DOOther ProviderActiveMusfidelia Martines MDOther ProviderActiveAbilio Jackman DO Other ProviderActiveMarkus Calzada MDOther ProviderActiveLynn Silva MD Other ProviderActiveLyCHECO Yi-BCOther ProviderActivePatricia Gama MDOther ProviderActiveJulio Jimenez MDOther ProviderActiveMakeda Gan MD Other ProviderActiveLeyla Corona MDOther ProviderActiveBarrett Hall MD Other ProviderActiveFirshea Isidro MDOther ProviderActiveBharath Cedeno MDOther ProviderActiveEarruby Thomas MDOther ProviderActiveAmy Palomo Viveros , PACKER-COther ProviderActiveFrstan Bettencourt MDOther ProviderActiveNaejamaica Casas , MD Other ProviderActiveMiles Galicia MDOther ProviderActiveKym Ward MDOther ProviderActiveJaya Brito MDOther ProviderActiveMacario Gee MDOther ProviderActiveCarla Fountain , DOOther ProviderActiveHani Wallace Beyer MDOther ProviderActiveNeal R Sadi , DOOther ProviderActiveAnthony M Miniaci , DOOther ProviderActiveLinda Obika , APRNOther ProviderActiveElisa Castillo , DONTEOther ProviderActive Team Status: Active Member Role Status Dates Igor Holliday MD Primary Care Provider Active Team MemberRelationshipSpecialtyStart DateEnd Date Latha Baker MD [address] [place] [address] PCP - GeneralFamily Medicine08/02/22Team MemberRelationshipSpecialtyStart DateEnd Date [facility] [address] [place], [place] PCP - GeneralFamily Medicine05/07/24Team MemberRelationshipSpecialtyStart DateEnd Date [facility] [address] [place], [place] PCP - GeneralFamily Medicine05/07/24Team MemberRelationshipSpecialtyStart DateEnd Date Shaikh Byrne MD [facility] [address] [facility] [place] [address] PCP - GeneralInternal Medicine05/01/23Team MemberRelationshipSpecialtyStart Date End Date [facility] [address] [place], [place] PCP - GeneralFamily Medicine05/07/24Team MemberRelationshipSpecialtyStart DateEnd Date [facility] [address] [place], [place] PCP - GeneralFamily Medicine05/07/24am MemberRelationshipSpecialtyStart DateEnd Date Shaikh Byrne MD [address] [place] [address] PCP - GeneralInternal Medicine05/01/23am MemberRelationshipSpecialtyStart Date End Date Shaikh Byrne MD [address] [place] [phone] PCP - GeneralInternal Medicine05/01/23am MemberRelationshipSpecialtyStart Date End Date [facility] [address] [place], [place] PCP - GeneralFamily Medicine05/07/24Team MemberRelationshipSpecialtyStart DateEnd Date [facility] [address] [place], [place] PCP - GeneralFamily Medicine05/07/24am MemberRelationshipSpecialtyStart DateEnd Date [facility] [address] [place], [place] PCP - GeneralFamily Medicine05/07/24Team MemberRelationshipSpecialtyStart DateEnd Date [facility] [address] [place], [place] PCP - GeneralFamily Medicine05/07/24Team MemberRelationshipSpecialtyStart DateEnd Date [facility] [address] [place], [place] PCP - GeneralFamily Medicine05/07/24Team MemberRelationshipSpecialtyStart DateEnd Date Services, [facility] [address] [place] PCP - GeneralFamily Medicine05/07/24 Team Status: Inactive Member Role Status Dates Igor Holliday MD Primary Care Provider Active Start: November 12, 2024 End: November 12, 2024Art Blue PhDAttending ProviderActiveStart: November 12, 2024 End: November 12, 2024 INFORMATION SOURCE (unrecogn ized section and content) DATE CREATED AUTHOR 03/19/2022 [facility] DATE CREATED AUTHOR AUTHOR'S ORGANIZ ATION 05/09/[address] [facility] DATE CREATED AUTHOR AUTHOR'S ORGANIZ ATION 06/01/2024 [facility] DATE CREATED AUTHOR AUTHOR'S ORGANIZ ATION 11/20/2024 [facility] DATE CREATED AUTHOR AUTHOR'S ORGANIZ ATION 11/29/2024 [facility] DATE CREATED AUTHOR AUTHOR'S ORGANIZ ATION 12/26/2024 [facility] Reason for Visit (unrecogniz ed section and content) ReasonOnset DateCommentsNeuro Referral/Ins Issue04/10/2024ReasonOnset Date CommentsOrder qrizunjxrsvwl05/25/2025ReasonOnset DateCommentss/p CATH/PCI 05/08/2024ReasonOnset DateCommentsNew Yxrlfkr7205/21/2024ReasonCommentsHospital Follow-upHOSP FU TTH S/P CATHReasonOnset DateCommentsLife Vest issue06/17/2024 ReasonOnset DateCommentsLife Vest09/11/2024ReasonOnset DateCommentsorders 09/13/2024ReasonCommentsFollow-upOV F/U 3 MO LABS, EM DONE, CARDIAC REHAB DONE, L/S KM, SCHED W/PT Scheduled Active and Recently Administ ered Medications (unrecognized section and content) Medication Order/ aspirin chewable tablet 81 mg 81 mg, oral, Daily, First dose (after last reorder) on Mon05/08/24 at 0900, Start Post-op Day 1 * 0921 (Given - Provider: Karina Yousif RN) * 0801 (Given - Provider: Karina Yousif RN) * 1205 (Given - Provider: Rody Collins, DONTE) atorvastatin (LIPITOR) tablet 80 mg 80 mg, oral, Nightly, First dose on Mon05/08/24 at 2200, Look-alike/sound-alike medication - verifyindication for use. * 2139 (Given - Provider: Nishi Liao, DONTE) * 2117 (Given - Provider: Reema Parks, RN) * 2199 (Due) busPIRone (BUSPAR) tablet 10 mg 10 mg, oral, 2 times daily, First dose on Mon05/07/24 at 2100, Look-alike/sound-alike medication - verify indication for use. Avoid grapefruit juice. * 0921 (Given - Provider: Karina Yousif RN) * 2139 (Given - Provider: Nishi Liao RN) * 08 (Given - Provider: Karina Yousif RN) * 2117 (Given - Provider: Reema Parks, DONTE) * 1205 (Given - Provider: Rody Collins RN) * 2100 (Due) dapagliflozin propanediol (FARXIGA) tablet 10 mg 10 mg, oral, Daily, First dose on Mon05/10/24 at 0900 * 0921 (Given - Provider: Karina Yousif RN) * 0801 (Given - Provider: Karina Yousif RN) * 1205 (Given - Provider: Rody Collins, DONTE) DULoxetine (CYMBALTA) DR capsule 60 mg 60 mg, oral, Daily, First dose (after last reorder) on Mon05/08/24 at 0900, Look-alike/sound-alike medication - verify indication for use. Swallow whole-do not crush or chew. Although the day care attendant does not recommend opening the capsule, the contents of capsule may be sprinkled on applesauce or in apple juice and swallowed (without chewing) immediately; do not sprinkle contents on chocolate pudding. * 0922 (Given - Provider: Karina Yousif RN) * 0801 (Given - Provider: Karina Yousif RN) * 1206 (Given - Provider: Rody Collins RN) folic acid (FOLVITE) tablet 1 mg 1 mg, oral, Daily, First dose on Mon05/13/24 at 0900, Look-alike/sound-alike medication - verify indication for use. * 0921 (Given - Provider: Karina Yousif RN) * 0800 (Given - Provider: Karina Yousif RN) * 1205 (Given - Provider: Rody Collins, DONTE) gabapentin (NEURONTIN) capsule 300 mg 300 mg, oral, 4 times daily, First dose on Mon05/07/24 at 2200, Look-alike/sound-alike medication -verify indication for use. * 0921 (Given - Provider: Karina Yousif RN) * 1324 (Given - Provider: Karina Yousif RN) * 1631 (Given - Provider: Karina Yousif RN) * 2140 (Given - Provider: Nishi Liao RN) * 0800 (Given - Provider: Karina Yousif RN) * 1432 (Given - Provider: Karina Yousif RN) * 1810 (Given - Provider: Karina Yousif RN) * 2118 (Given - Provider: Reema Parks, DONTE) * 1205 (Given - Provider: Rody Collins, RN) * 1300 (Not Given - Provider: Royd Collins RN - Reason: Other) * 1700 (Canceled Entry - Provider: Gale Franklin RN) * 2200 (Due) heparin (porcine) injection 5,000 Units 5,000 Units, subcutaneous, Every 12 hours scheduled, First dose on Mon05/08/24 at 1030, Look-alike/sound-alike medication - verify indication for use. Observe for bleeding. * 0920 (Given - Provider: Karina Yousif RN) * 2140 (Given - Provider: Nishi Liao RN) * 0800 (Given - Provider: Karina Yousif RN) * 2121 (Given - Provider: Reema Parks, DONTE) * 1205 (Given - Provider: Rody Collins, DONTE) * 2100 (Due) metoprolol succinate XL (TOPROL XL) 24 hr tablet 12.5 mg 12.5 mg, oral, Daily, First dose on Mon05/08/24 at 1030, Look-alike/sound-alike medication - verifyindication for use. Do not crush or chew. * 0921 (Given - Provider: Karina Yousif RN) * 0800 (Given - Provider: Karina Yousif RN) * 1205 (Given - Provider: Rody Collins, RN) prasugreL HCl (EFFIENT) tablet 10 mg 10 mg, oral, Daily, First dose on Mon05/08/24 at 0900, Start Post-op Day 1 * 0922 (Given - Provider: Karina Yousif RN) * 0801 (Given - Provider: Karina Yousif RN) * 1205 (Given - Provider: Rody Collins, DONTE) sennosides-docusate sodium (SENOKOT-S) 8.6-50 mg 2 tablet 2 tablet, oral, 2 times daily, First dose on Mon05/12/24 at 2100 * 0921 (Given - Provider: Karina Yousif RN) * 214 (Given - Provider: Nishi Liao, DONTE) * 08 (Given - Provider: Karina Yousif RN) * 2117 (Given - Provider: Reema Parks, DONTE) * 1205 (Given - Provider: Rody Collins, RN) * 2100 (Due) sodium chloride 0.9 % flush 3 mL 3 mL, intravenous, Every 12 hours, First dose on Mon05/07/24 at 2100 * 0900 (Given - Provider: Karina Yousif RN) * 214 (Given - Provider: Nishi Liao, DONTE) * 09 (Given - Provider: Karina Yousif RN) * 212 (Given - Provider: Reema Parks, DONTE) * 1207 (Given - Provider: Rody Collins, RN) * 2100 (Due) sodium chloride 0.9 % flush 3 mL 3 mL, intravenous, Every 12 hours, First dose on Mon05/09/24 at 2100 * 0900 (Given - Provider: Karina Yousif RN) * 214 (Given - Provider: Nishi Liao, DONTE) * 09 (Given - Provider: Karina Yousif RN) * 212 (Given - Provider: Reema Parks, DONTE) * 1207 (Given - Provider: Rody Collins, RN) * 2100 (Due) spironolactone (ALDACTONE) tablet 25 mg 25 mg, oral, Daily, First dose on 05/11/24 at 1030 * 0922 (Given - Provider: Karina Yousif, RN) * 0801 (Given - Provider: Karina Yousif, DONTE) * 1206 (Given - Provider: Rody Collins, DONTE) thiamine HCl (VITAMIN B-1) tablet 100 mg 100 mg, oral, Daily, First dose on 05/13/24 at 1200, Look-alike/sound-alike medication - verify indication for use. * 0921 (Given - Provider: Karina Yousif, DONTE) * 0800 (Given - Provider: Karina Yousif, DONTE) * 1205 (Given - Provider: Rody Collins, RN) valsartan (DIOVAN) tablet 40 mg 40 mg, oral, 2 times daily, First dose on Mon05/10/24 at 0900, Look-alike/sound-alike medication - verify indication for use. * 0922 (Given - Provider: Karina Yousif RN) * 2140 (Given - Provider: Nishi Liao RN) * 0801 (Given - Provider: Karina Yousif, DONTE) * 2118 (Given - Provider: Reema Parks, DONTE) * 1206 (Given - Provider: Rody Collins, DONTE) * 2100 (Due) Medication Order504/504/06/2024 acetaminophen (TYLENOL) tablet 650 mg 650 mg, oral, Every 4 hours PRN, mild pain - pain scale 1-3, headaches, Starting on Pearl 05/09/24 at 1744 acetaminophen-codeine (TYLENOL #3) 300-30 mg per tablet 1 tablet 1 tablet, oral, Every 4 hours PRN, moderate pain - pain scale 4-6, Starting on Pearl 05/09/24 at 1744 * 1631 (Given - Provider: Karina Yousif RN) [...] infusion. Hold calcium replacement for phosphorus greater than5.5 mg/dL. VESICANT (RED) calcium gluconate IVPB 1000 mg/50 mL (20 mg/mL premix)(Linked Group 1) 1,000 mg, intravenous, at 50 mL/hr, Administer over 60 Minutes, As needed, for ionized calcium level 3.5 to 4.4 mg/dL, Starting on Mon05/07/24 at 2243, Recheck ionized calcium 6 hours after infusion.Hold calcium replacement for phosphorus greater than 5.5 [...] glucose less than 70 mg/dL, Starting on Mon05/09/24 at 1744, If patient conscious and taking PO. If blood glucose is not greater than 70 mg/dL after initial treatment, repeat treatment. dextrose 50 % in water (D50W) 50% solution 25 mL 25 mL, intravenous, As needed, low blood sugar, blood glucose less than 70 mg/dL and unconscious orNPO with IV access, Starting on Mon05/07/24 at [...] response to contrast, Starting on Mon05/07/24 at 1836,For 1 dose, Notify captain/airline pilot if administered Look-alike/sound-alike medication - verify indication [...] Look-alike/sound-alike medication - verify indication for use. * 2139 (Given - Provider: Nishi Liao RN) LORazepam (ATIVAN) tablet 0.5 mg 0.5 mg, oral, Nightly PRN, anxiety, Starting on Mon05/17/24 at 1452, Look-alike/sound-alike medication - verify indication for use. * 2116 (Given - Provider: Reema Parks RN) magnesium sulfate IVPB 2000 mg/50 mL in iso-osmotic water (40 mg/mL premix) (Linked Group 2) 2,000 mg, intravenous, at 25 mL/hr, Administer over 120 Minutes, As needed, for magnesium level 1.7to 1.9 mg/dL or ionized magnesium level 0.45 to 0.5 mmol/L, Starting on Mon05/07/24 at 2243, Use premix solution. Default to ionized magnesium level in cases where patient has both magnesium and ionized magnesium results. If administered, check ionized magnesium (or total magnesium if ionized magnesium unavailable) level 4 hours after infusion. magnesium sulfate IVPB 4000 mg/100 mL in iso-osmotic water (40 mg/mL premix) (Linked Group 2) 4,000 mg, intravenous, at 25 mL/hr, Administer over 240 Minutes, As needed, for magnesium level 1.6mg/mL or less, or ionized magnesium level 0.44 mmol/L or less, Starting on Mon05/07/24 at 2243, Usepremix solution. Default to ionized magnesium level in [...] previous patch, if present, before applying new. * 1356 (Medication Removed - Provider: Karina Yousif RN) * 1400 (Canceled Entry - Provider: Karina Yousif RN) * 1447 (Medication Applied - Provider: Karina Yousif RN) * 1432 (Medication Removed - Provider: Karina Yousif RN) * 1433 (Medication Applied - Provider: Karina Yousif RN) * 1433 (Medication Removed - Provider: Gale Franklin RN) nitroglycerin (NITROSTAT) disintegrating tablet 0.4 mg 0.4 mg, sublingual, Every 5 min PRN, chest pain, Starting on Mon05/07/24 at 1836, Administer up to 3 doses [...] replacement, Starting on Mon05/07/24 at 2243, Progress tooral potassium replacement when patient tolerating oral intake. [...] tolerating oral intake. If dose administered, recheck potassiumlevel 4 hours after last dose. For potassium [...] 1.2=30 mEq (22.5mL). For potassium level 3 mm ol/L or less and Serum Creatinine greater than [...] less and Serum Creatinine 1.2 or less =50 mEq For potassium level 3.4 to 3.8 [...] phosphorus level 4 hours after infusion complete. Order Group 1: calcium gluconate IVPB 1000 mg/50 mL (20 mg/mL premix)Jump to med 1,000 mg, intravenous, at 50 mL/hr, Administer over 60 Minutes, As needed, for ionized calcium level 3.5 to 4.4 mg/dL, Starting on Mon05/07/24 at 2243, Recheck ionized calcium 6 hours after infusion.Hold calcium replacement for phosphorus greater than 5.5 [...] infusion. Hold calcium replacement for phosphorus greater than5.5 mg/dL. VESICANT (RED) Group 2: magnesium sulfate IVPB 2000 mg/50 mL in iso-osmotic water (40 mg/mL premix)Jump to med 2,000 mg, intravenous, at 25 mL/hr, Administer over 120 Minutes, As needed, for magnesium level 1.7to 1.9 mg/dL or ionized magnesium level 0.45 [...] 240 Minutes, As needed, for magnesium level 1.6mg/mL or less, or ionized magnesium level 0.44 mmol/L or less, Starting on Mon05/07/24 at 2243, Usepremix solution. Default to ionized magnesium level in cases where patient has both magnesium and ionized magnesium results. If administered, check ionized magnesium (or total magnesium if ionized magnesium unavailable) level 4 hours after infusion. Group 3: potassium chloride (K-TAB,KLOR-CON) CR tablet 20-50 mEqJump to med 20-50 mEq, oral, As needed, for potassium replacement, Starting on Mon05/07/24 at 2243, Progress tooral potassium replacement when patient tolerating oral intake. [...] tolerating oral intake. If dose administered, recheck potassiumlevel 4 hours after last dose. For potassium [...] 1.2=30 mEq (22.5mL). For potassium level 3 mm ol/L or less and Serum Creatinine greater than [...] less and Serum Creatinine 1.2 or less =50 mEq For potassium level 3.4 to 3.8 [...] BE BASED ON THE PRIMARY CLINICAL RECORDS. [facility] provides no warranty or guarantee of the accuracy or completeness of information in this document.
--- NOTE | 2024-12-26 13:41 | PM.CN ---
Consult Note: HPI Data of Consult Patient: known to practice within the last 3 years Consult date: 08/15/24 Requesting Physician: Margo Urbano NP Primary Care Provider: Non-Staff Physician, MD Consult Narrative Reason for consult: neck pain Narrative: [id number] who presents for assessment. persistence of pain in neck, bilateral shoulder area. 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 continues in a series of provider directed home exercises >6 weeks, without lasting benefit. uses gabapentin 400mg QID and flexeril 10mg HS PRN with benefit without side effects. noting significant relief from left C5-6 C6-7 facet RFA, right C5-6 C6-7 facet RFA remains in healing phase. noting numbness ti base of neck on right side. cc:: CC: Margo Urbano NP Review of Systems ROS Status of ROS 10 or more systems reviewed and unremarkable except as noted in history and below [facility] Medical History (Updated 12/26/24 @ 13:43 by Margo Urbano NP) Menopause ?Z78.0 - Asymptomatic menopausal state (ICD-10) Depression ?F32.A - Depression, unspecified (ICD-10) Anxiety ?F41.9 - Anxiety disorder, unspecified (ICD-10) Surgical History (Updated 09/04/24 @ 11:36 by Benita Moy RN) H/O section ?Z98.891 - History of uterine scar from previous surgery (ICD-10) Meds Home Medications and Allergies Home Medications ?Medication ?Instructions ?Recorded ?Confirmed ?Type cyclobenzaprine 10 mg tablet 10 mg PO .HS 04/18/24 11/25/24 History ibuprofen 600 mg tablet (IBU) 600 mg PO TID PRN pain 04/18/24 11/25/24 History gabapentin 400 mg capsule 400 mg PO QID #120 caps 07/31/24 11/25/24 Rx gabapentin 400 mg capsule 400 mg PO QID #120 caps 10/08/24 11/25/24 Rx gabapentin 400 mg capsule 400 mg PO QID #120 caps 12/04/24 Rx Allergies Allergy/AdvReac Type Severity Reaction Status Date / Time Sulfa (Sulfonamide Allergy Mild Unknown Verified 11/25/24 09:16 Antibiotics) Exam Narrative Exam Narrative: Psych-alert and oriented x 3.? Attentive and appropriate, constitutionally normal, displays normal mood and affect per situation.? There are no obvious deficits in memory, reasoning, or intellect.? Skin-no obvious rashes, bruising, or erythema noted to the patient's area of pain. Extremities-upper extremities are warm with minimal edema and palpable pulses. Cervical- tenderness to palpation noted in the right cervical spine and paraspinal musculature.? Pain is elicited with extension, and lateral rotation of the cervical spine on the right side Range of motion is slightly diminished due to pain. Facet loading maneuvers are positive right Coordination remains intact.? Gait remains non-antalgic. Assessment and Plan Assessment and Plan (1) Cervical spondylosis: (2) Myofascial pain: Plan status post right and left C5-6 C6-7 facet RFA, noting 70% improvement on the left and mild relief on the right. patient noting numbness tingling to right neck. no concerning signs of cervical radiculopathy or neuritis, RFA remains in healing phase. physical exam and plan of care reviewed with patient and daughter. start lidocaine 5% patches on 12 hours off 12 hours prn pain increase flexeril 5-10mg bid prn pain/spasms, max 20mg daily. risks vs benefits reviewed f/u 1 month, sooner if needed
== END 2024-12-26 13:11 | disposition home or self-care (01) ==
PROVIDERS: Visit Provider Nurse Practitioner
DX: M47.812 Spondylosis without myelopathy or radiculopathy, cervical region (principal); M79.18 Myalgia, other site
CPT/HCPCS: G0463